=== PATIENT | male | born 1960 | race Caucasian/White ===

== ENCOUNTER 2018-04-22 18:58 | Emergency (ER) | payer OTHER, SELFPAY ==
[2018-04-22 18:59] VITALS: BP 156/86; PULSE 66; RESP 14; TEMP 36.9; O2SAT 93; BMI 22.6
--- NOTE | 2018-04-22 19:20 | ED.VISSUMM ---
- ER Visit Summary Date of Service: 04/22/18 Chief Complaint: Pain with swallowing History of Present Illness: The patient is a 57 M no significant past medical or surgical history. However the patient has not had a physician for more than 20 years. He states that he has pain the last several days with swallowing. He denies any food getting stuck. Said he can swallow both solids and liquids. Denies any choking or trouble breathing. Pain is only with swallowing when he is not swallowing he does not have any pain in his abdomen or chest. He denies fever. He denies back pain. He denies shortness of breath or chest pain. He denies any black or bloody stools. He has never had this before. He denies reflux symptoms. Physical Examination: Well-appearing middle-age male. Vital signs are stable afebrile. He does not look septic or toxic. He is in no distress. H EENT exam unremarkable other than multiple missing teeth. Neck nontender. Lungs clear to auscultation bilaterally. Heart regular rate and rhythm no murmur. Abdomen is soft and nontender. Normal bowel sounds no peritoneal signs. He is absolutely no abdominal tenderness. No organomegaly or masses. No pulsatile mass. Right upper quadrants unremarkable. He is moving all 4 extremities. The neurovascular intact. Back exam nontender. Neurological exam is awake and alert with no focal motor deficits. Test Results: I explained the patient and his daughters that he does not need any tests currently to the ER. He may need an upper endoscopy. Emergency Department Course and Treatment: Discharged to home to follow-up with Dr. Jann Gibson for possible upper endoscopy. Treatment Plan: Patient will be placed on Prilosec. For possible esophageal inflammation and reflux. Disposition: Discharge Impression: Acute pain with swallowing of uncertain etiology This note was generated with [employer] dictation software. It may contain incorrect words, spelling, and punctuation that were not noted in review of the chart prior to signing ED Disposition - Plan for ED Patient: Chief Complaint: Other, Pain/Inj Referrals: NOT,DEFINED [Primary Care Provider] -
--- NOTE | 2018-04-22 19:23 | ED.DEP ---
ED Disposition - Plan for ED Patient: Chief Complaint: Other, Pain/Inj Prescriptions: Omeprazole [Prilosec] 20 mg PO DAILY #30 cap Referrals: Shane Gibson MD [STAFF PHYSICIAN] - As soon as possible Additional Instructions: Make sure you to your food thoroughly. Cut up into small pieces. Call and follow-up with Dr. Jann Gibson. You may need upper endoscopy. Prilosec daily for possible reflux that may be causing esophageal inflammation. Return if feeling worse, fever or black or bloody stools.
== END 2018-04-22 19:31 | disposition home or self-care (01) ==
PROVIDERS: Emergency Provider Emergency Medicine
DX: R13.10 Dysphagia, unspecified (principal); Z72.0 Tobacco use
CPT/HCPCS: 99282

== ENCOUNTER 2018-04-28 09:51 | Day surgery (SDC) | payer OTHER, SELFPAY ==
[2018-04-28] VITALS (7 sets, daily range): BP systolic 104–160; BP diastolic 59–79; PULSE 71–90; RESP 16–18; TEMP 36.4–37.4; O2SAT 95–98; BMI 22.6
--- NOTE | 2018-04-28 11:00 | EGD_PTH ---
PATIENT: MY PEREZ LOC: EN U#:[id number] AGE/SX: 57/M ROOM: RE04/28/[address]: Dr. Shane Gibson MD : 1960 BED: DIS: 04/28/2018 SPEC #: [id number] RECD: 04/28/18 14:20 STATUS: ALEX ANDRES #: [id number] SHANTELL: 04/28/18 11:[address]: Shane Gibson DEPT: SURGICAL PATHOLOGY RECD BY: Rufina Corral ENTERED: 04/28/18 14:45 SP TYPE: EGD BIOPSY OTHR DR: Amanda Primary Care Phys Tissues: Esophagus, NOS Procedures: Surgery Specimen Level IV HEADER OPERATION: EGD ([facility]) PRE-OP DIAGNOSIS: Painful swallowing TISSUE SUBMITTED: Distal esophagus MICROSCOPIC DIAGNOSIS Distal esophagus, biopsy: Focal changes suggestive of reflux. AM:evy 04/29/18 MICROSCOPIC DESCRIPTION Slides are reviewed. GROSS DESCRIPTION Received in fixative is one container labeled with the patient's name and designated distal esophagus. The specimen consists of one irregular fragment of light mcmahon soft tissue that measures 0.2 x 0.2 x 0.1 cm. The specimen is totally submitted in one cassette. / SJ:evy 04/28/18 TC:5 CPT: 30646
--- NOTE | 2018-04-28 11:22 | PCM.OPRPT ---
Problem List (1) Dysphagia, unspecified Status: Acute Qualifiers: Dysphagia type: unspecified Qualified Code(s): R13.10 - Dysphagia, unspecified Report of Operation Date of Procedure: 04/28/18 Pre-Operative Diagnosis: r13.10 dysphagia Post-Operative Diagnosis: Same with esophagitis Surgery/Procedure Performed:: 94733 esophagogastroduodenoscopy with biopsy Type of Anesthesia:: MAC Description of Procedure: Patient was brought into the endoscopy suite. Placed in the left lateral decubitus position. The back of his throat was sprayed with Cetacaine spray. Bite-block was placed. He was given graded anesthesia. Scope was inserted in the oropharynx and directed down through the esophagus into the stomach and into the duodenum without difficulty. Operative findings: 1. Duodenum: Normal appearance no mass lesions no ulcerations normal pylorus valve. 2. Stomach: Normal appearance no mass lesions no ulcerations retroflexion did show small hiatal hernia 3. Esophagus: Significant esophagitis in the distal esophagus measuring approximately a centimeter to 2 cm in length and about a centimeter in width a cold biopsy of this was obtained. Rest the esophagus appeared normal no signs of mass lesions. I believe the discomfort that he is experiencing is from this esophagitis we are going to treat him with double dose proton pump inhibitor and probably re-scope him in 6-8 weeks. - Admit VTE Documentation VTE Present on Admission: No VTE Mechan Device Prophylaxis: SCD's VTE Pharm Prophylaxis ordered?: No Reason prophylaxis not ordered:: Treatment Not Indicated
--- NOTE | 2018-04-28 11:25 | OP.PCM_ITS ---
Problem List (1) Dysphagia, unspecified Status: Acute Qualifiers: Dysphagia type: unspecified Qualified Code(s): R13.10 - Dysphagia, unspecified Report of Operation Date of Procedure: 04/28/18 Pre-Operative Diagnosis: r13.10 dysphagia Post-Operative Diagnosis: Same with esophagitis Surgery/Procedure Performed:: 84941 esophagogastroduodenoscopy with biopsy Type of Anesthesia:: MAC Description of Procedure: Patient was brought into the endoscopy suite. Placed in the left lateral decubitus position. The back of his throat was sprayed with Cetacaine spray. Bite-block was placed. He was given graded anesthesia. Scope was inserted in the oropharynx and directed down through the esophagus into the stomach and into the duodenum without difficulty. Operative findings: 1. Duodenum: Normal appearance no mass lesions no ulcerations normal pylorus valve. 2. Stomach: Normal appearance no mass lesions no ulcerations retroflexion did show small hiatal hernia 3. Esophagus: Significant esophagitis in the distal esophagus measuring approximately a centimeter to 2 cm in length and about a centimeter in width a cold biopsy of this was obtained. Rest the esophagus appeared normal no signs of mass lesions. I believe the discomfort that he is experiencing is from this esophagitis we are going to treat him with double dose proton pump inhibitor and probably re- scope him in 6-8 weeks. - Admit VTE Documentation VTE Present on Admission: No VTE Mechan Device Prophylaxis: SCD's VTE Pharm Prophylaxis ordered?: No Reason prophylaxis not ordered:: Treatment Not Indicated
== END 2018-04-28 11:59 | disposition home or self-care (01) ==
LOC: EN 09:52 → AC 09:54
PROVIDERS: Visit Provider Surgery
PROC: 0DJ08ZZ Inspection of Upper Intestinal Tract, Via Natural or Artificial Opening Endoscopic (ICD-10-PCS; CPT 43235; principal; 2018-04-28 10:55)
DX: K21.0 Gastro-esophageal reflux disease with esophagitis (principal); K44.9 Diaphragmatic hernia without obstruction or gangrene; M06.9 Rheumatoid arthritis, unspecified; F10.99 Alcohol use, unspecified with unspecified alcohol-induced disorder; F17.200 Nicotine dependence, unspecified, uncomplicated
CPT/HCPCS: 43239; 88305; J7120; J1610

== ENCOUNTER → 2018-12-15 15:44 | Outpatient (CLI) | payer OTHER, SELFPAY ==
[2018-04-28 10:06] VITALS: BMI 22.6
[2018-12-15 15:59] LABS: Absolute Lymphocyte Count 2.18 X10^3/ul (0.83-4.51); Basophil# 0.03 X10^3/uL; Basophil% 0.4 % (0-1); Eosinophil# 0.03 X10^3/uL; Eosinophils% 0.4 % (0-5); Hematocrit 38.8 % (40-54); Hemoglobin 13.7 g/dl (13.0-16.5); Lymphocyte # 2.18 X10^3/ul (4.0); Lymphocyte % 25.9 % (19-41); Mean Corp Hgb Conc 35.3 g/gl (32-36); Mean Corpuscular Hgb 32.2 pg (27.0-32.0); Mean Corpuscular Volume 91.3 fL (80-94); Mean Platelet Vol. 9.7 fl (6.2-12.0); Monocyte# 1.15 X10^3/uL; Monocyte% 13.7 % (0-10); Neutrophil # 5.01 X10^3/uL (2.7-7.7); Neutrophil % 59.5 % (47-70); POSITIVE COUNT NO; POSITIVE DIFFERENTIAL NO; POSITIVE MORPHOLOGY NO; Platelet Count 337 K/mm3 (150-450); RBC Distribution Width CV 13.9 % (11.6-14.6); RBC Distribution Width SD 45.5 fl (35.1-43.9); Red Blood Count 4.25 M/mm3 (4.6-6.2); White Blood Count 8.4 K/mm3 (4.4-11.0)
[2018-12-15 16:22] LABS: ALB/GLOB Ratio 1.1 RATIO (0.9-2.4); AST(SGOT) 25 U/L (15-37); Alanine Aminotransfer ALT/SGPT 31 U/L (16-61); Albumin, Serum 3.8 g/dL (3.2-5.0); Alkaline Phosphatase 59 U/L (45-117); Anion Gap 6 (5-15); BUN 7 mg/dL (7-18); BUN/Creat Ratio 12.3 RATIO (10-20); Calcium,Total 8.5 mg/dL (8.5-10.1); Chloride 97 mmol/L (98-107); Creatinine, Serum 0.57 mg/dL (0.70-1.30); EST Glomerular Filtration Rate 158 mL/min (>60); Est Glom Filt Rate - Afr Amer 191 mL/min (>60); Globulin 3.4 g/dL (2.2-4.2); Glucose 102 mg/dL (74-106); Potassium 4.1 mmol/L (3.5-5.1); Protein, Total 7.2 g/dL (6.4-8.2); Sodium Level 132 mmol/L (136-145)
== END ==
PROVIDERS: Referring Provider Nurse Practitioner; Visit Provider Nurse Practitioner
DX: R22.1 Localized swelling, mass and lump, neck (principal)
CPT/HCPCS: 80053; 85025

== ENCOUNTER → 2018-12-17 09:13 | Outpatient (CLI) | payer OTHER, SELFPAY ==
--- NOTE | 2018-12-17 09:21 | CT_ITS ---
STUDY: CT CHEST WITH CONTRAST REASON FOR EXAM: Male, 58 years old. Left-sided neck mass 2 months. RADIATION DOSAGE (If Supplied By Facility): DLP = ( 1009 ) mGycm TECHNIQUE: Transaxial imaging was performed following intravenous administration of 100CC IV Isovue 300. Coronal and sagittal 2-D MPR Individualized dose optimization techniques were used for this CT. COMPARISON: CT soft tissue neck 12/17/2018 FINDINGS: Supraclavicular: No acute process within the [id number]. Body wall soft tissues: No acute process. Upper abdomen: No acute process. Osseous structures: No acute process. Mild scoliosis, moderate kyphosis, mild multilevel thoracic spondylosis. Mediastinum: No acute process. Cardiovascular: No acute process. Lungs: A few small scattered pulmonary nodules are present. The largest is in the right upper lobe anterior segment, series 6 image 73, 5 cm, solid features, smooth margins. Unremarkable airways. CT/Chest WITH Contrast IMPRESSION: No acute thoracic process is evident. Small pulmonary nodules. The largest measures approximately 5 mm. Follow-up low-dose CT chest is recommended in 1 year for pulmonary nodule surveillance purposes. Electronically Signed: Narendra Romero MD at 11:49 EDT Tel , Service support ,
--- NOTE | 2018-12-17 09:21 | CT_ITS ---
STUDY: CT SOFT TISSUE NECK WITH CONTRAST REASON FOR EXAM: Male, 58 years old. Left-sided neck mass 2 months RADIATION DOSAGE (If Supplied By Facility): CTDIvol = ( 16.55 ) mGy, DLP = ( 1009.11 ) mGycm TECHNIQUE: The patient was scanned in a multi-detector CT scanner. High resolution transaxial imaging was performed following intravenous administration of 100CC IV Isovue 300. Sagittal and coronal images were reconstructed. Individualized dose optimization techniques were used for this CT. COMPARISON: None. FINDINGS: There is a rim-enhancing centrally cystic mass distal to the angle the mandible, lateral to the hyoid cartilage, along the anterior margin of the sternocleidomastoid muscle. Wall thickness up to 4.9 mm. Process measures approximately 1.8 cm craniocaudal, 1.8 cm transverse, 2.9 cm anterior-posterior. Posteriorly and deep to the sternomastoid muscle, single mildly enlarged lymph node measuring 1.2 x 1.6 cm. A few additional shotty lymph nodes are present on the left. Normal thyroid. Normal submandibular glands and parotid glands. There is no right cervical lymphadenopathy. Pharyngeal and laryngeal soft tissues appear normal. Multilevel cervical spondylosis with disc disease most notable at C5-C6 with uncovertebral joint hypertrophy contributing to mild foraminal narrowing. Mucoperiosteal thickening and mucous retention cysts of the maxillary sinuses. Solitary opacified posterior right ethmoid sinus. Mastoid air cells and middle ear cavities clear. 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 Electronically Signed: Narendra Romero MD at 11:45 EDT Tel , Service support ,
== END ==
PROVIDERS: Family Provider Nurse Practitioner; PCP Nurse Practitioner; Referring Provider Nurse Practitioner; Visit Provider Nurse Practitioner
DX: R22.1 Localized swelling, mass and lump, neck (principal)
CPT/HCPCS: 70491; 71260; Q9967

== ENCOUNTER → 2018-12-22 10:32 | Outpatient (CLI) | payer OTHER, SELFPAY ==
--- NOTE | 2018-12-22 | FLU_PTH ---
PATIENT: MY PEREZ LOC: [facility] U#:[id number] AGE/SX: 65/M ROOM: RE12/22/[address]: Dr. Shane Gibson MD : 1960 BED: DIS: SPEC #: [id number] RECD: 12/22/18 12:54 STATUS: ALEX ANDRES #: [id number] SHANTELL: 12/22/18 00:[address]: Shane Gibson DEPT: CYTOLOGY RECD BY: Richardson Jackson ENTERED: 12/22/18 12:55 SP TYPE: Fluid OTHR DR: Kya Anderson, [employer] DESK CLERK-C Tissues: A - Neck, NOS B - Neck, NOS Procedures: Special Stain Group II Surgery Specimen Level IV Cytospin Fluid HEADER OPERATION: Ultrasound-guided fine needle aspiration left neck mass PRE-OP DIAGNOSIS: Left neck mass R22.1 TISSUE SUBMITTED: A - Left neck mass fluid in syringe for cytology, B - Fine needle aspiration left neck mass (12 slides) DIAGNOSIS CYTOLOGY A. 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 See comment. B. 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 SJ:rg 12/23/18 COMMENT A. Immunohistochemistry ([id number]) supports the above diagnosis. Case has been reviewed in consultation with Dr. Del Real who concurs with the above diagnosis. IDC:AM CYTOLOGY STUDY Slides are reviewed. CYTOLOGY GROSS A - Received is 2 ml of cloudy red fluid labeled with the patient's name and and designated per the requisition as left neck mass. Submitted for cytology preparation including cell block. B - Received are 12 smears labeled with the patient's name and designated per the requisition as left neck mass. Submitted for staining. / 12/22/18 TC:0 CPT: 87325, 31334, 16879
--- NOTE | 2018-12-22 | IMM_PTH ---
PATIENT: MY PEREZ LOC: [facility] U#:[id number] AGE/SX: 65/M ROOM: RE12/22/[address]: Dr. Shane Gibson MD : 1960 BED: DIS: SPEC #: [id number] RECD: 12/23/18 11:37 STATUS: ALEX REErik #: [id number] SHANTELL: 12/22/18 00:[address]: Shane Gibson DEPT: IMMUNOHISTOCHEMISTRY RECD BY: Florencia Valles ENTERED: 12/23/18 11:39 SP TYPE: IMMUNO OTHR DR: Kya Anderson, HIM CLERK-C Tissues: A - Neck, NOS Procedures: RCC (add) NAPSIN A (add) CK20 (add) CK5-6 (add) CK7 (add) CK8 (add) HEP PAR (add) P16 (add) TTF1 (add) Pankeratin (initial) P40 (add) PSAP (add) PHYSICIAN [facility] INSTIT[facility] [address] [address] SPECIMEN INFORMATION: Tissue Source: A - Left neck mass fine needle aspiration Clinical Info: Left neck mass Specimen Number: [id number] CPT code: 74609, 77055 x11 METHODOLOGY: Deparaffinized sections of prefer/formalin-fixed tissue or PAP/DQ stained slides are incubated with monoclonal/polyclonal antibodies/oligonucleotide probes. Localization is made via biotin free immunoperoxidase method. Appropriate controls are performed and reacted as expected. Results on target cell population are indicated in the following table: RESULTS: ANTIBODY / CLONE RESULT Block A AE1-3 (AE1/AE3/PCK26) positive CK7 (OV-TL12/30) negative CK8 (58tutwG72) positive, weak CK20 (KS20.8) negative TTF-1 (8G7G3/1) negative Napsin A (Rabbit Polyclonal) negative HepPar (OCh1E5) negative RCC (PN-15) negative PSAP (PASE/4LJ) negative CK5-6 (D5 & 1684) positive P16 (E6H4) negative P40 (BC28) positive, focal These tests were developed and their performance characteristics determined by [facility]. They may not have been cleared or approved by the U.S. Food and Drug Administration. The FDA has determined that such clearance or approval is not necessary. INTERPRETATION: A. 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 SJ:evy 12/24/18
[2018-12-22 09:21] VITALS: BMI 23.2
== END ==
PROVIDERS: Family Provider Nurse Practitioner; PCP Nurse Practitioner; Referring Provider Surgery; Visit Provider Surgery
DX: R22.1 Localized swelling, mass and lump, neck (principal)
CPT/HCPCS: 88108; 88305; 88313; 88341; 88342

== ENCOUNTER 2019-01-26 08:59 | Day surgery (SDC) | payer OTHER, SELFPAY ==
[2019-01-02 10:24] VITALS: BMI 22.1
[2019-01-08 11:40] VITALS: BMI 22.8
[2019-01-08 12:26] VITALS: BMI 22.6
[2019-01-26 09:31] VITALS: BP 158/84; PULSE 89; RESP 18; TEMP 36.9; O2SAT 100; BMI 22.4
--- NOTE | 2019-01-26 10:45 | HP.PCM_ITS ---
History and Physical Date of Admission: 01/26/19 [facility] [address] [place], [place] [address] OFFICE VISIT Date of Service: 01/02/19 MR#: [id number] Acct: [id number] Name: MY PEREZ Rep #: [id number] : 1960 Provider: Shane Gibson MD Age/Sex: 58/M Location: [facility] Status: Signed Intake Vital Signs 01/02/19 Body Mass Index (BMI) 22.1 01/02/19 Height 5 ft 6.5 in 01/02/19 Weight: 140 lb 01/02/19 Body Mass Index (BMI) 22.2 01/02/19 Blood Pressure 166/81 H 01/02/19 Blood Pressure Location Lt brachial 01/02/19 Blood Pressure Position Sitting 01/02/19 Respiratory Rate 18 01/02/19 Pulse Rate 75 Intake Visit Reasons: PORT PLACEMENT & PEG TUBE Chief Complaint: Neck mass Vp Of Marketing Required: No Is patient in pain?: No Allergies No Known Allergies Allergy (Verified 01/02/19 10:15) Medications NK 12/19/18 [History Confirmed 01/02/19] [facility] Medical History Acid reflux (Acute) Difficulty swallowing (Acute) Epigastric pain (Acute) Mass of left side of neck (Acute) malignant squamous cell carcinoma lt neck (Acute) Hypertension (Chronic) Surgical History history of biopsy neck (Acute) Family History Mother CVA (cerebral vascular accident) Social History Smoking Status: Current every day smoker alcohol intake: current alcohol intake frequency: a few times a week substance use type: does not use HPI HPI HPI: MY PEREZ, is a 58 M who presents to the office today for HPI HPI HPI: MY PEREZ, is a 58 M who presents to the office today for evaluation for PEG tube and a port. 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 He will be undergoing radiation to the head and neck as well as chemotherapy and I been consulted to place both a PEG tube and a port. ROS General General: No weight change, appetite, fatigue, colon cancer, breast cancer or weakness HEENT HEENT: No difficulty swallowing, eye injury, eye surgery, swollen glands or hoarseness Endo Endocrine: No thyroid disease, diabetes mellitus, thyroid cancer, Hair loss, heat intolerance or cold intolerance Skin Skin: No rash or changing moles Breast Breast: No left breast lump, right breast lump, nipple discharge, breast pain, abnormal mammogram, abnormal US or breast enlargement Musc Musculoskeletal: No back problems, arthritis, rheumatoid arthritis, gout or joint pain Cardio Cardiovascular: Yes high blood pressure; no murmur, pacemaker, heart disease, atrial fibrillation, heart attack, heart stent, palpitations, shortness of breat with exertion or chest pain Psych Psychiatric: No depression, anxiety or hearing voices Resp Respiratory: No shortness of breath, No sleep apnea, No cough, No COPD, No asthma, No emphysema, No wheezing Gastro Gastrointestinal: No abdominal pain, No nausea or vomiting, No diarrhea, No constipation, No blood in stool, Yes acid reflux, No hemorrhoids, No ulcers, No gallbladder problem, No black,tarry stools Mark Hematologic: No blood thinners, No blood disorders, No bleeding, No anemia, No blood clots Neuro Neurologic: No weakness Exam Const General: no acute distress, well developed, well hydrated Orientation: oriented to person, oriented to place, oriented to time [facility] Head: normocephalic, atraumatic Ears: external ears normal Mouth: moist mucous membranes Eyes Sclera: sclerae normal Pupils: normal by confrontation Neck Neck: no lymphadenopathy noted Neck mass: No Thyroid: thyroid normal, symmetrical Other: Large lymph node is identified in the left anterior neck right anterior neck appears to be free of lymphadenopathy. Chest Chest palpation & inspection: normal inspection of the chest Breast Palpation: No nipple discharge Resp Effort & Inspection: normal respiratory effort Auscultation: clear to auscultation bilaterally Percussion: percussion normal Cardio Rate: regular rate Rhythm: regular rhythm Heart Sounds: no murmurs GI Palpation: soft, no hepatosplenomegaly, no masses, nontender Rectal Exam: other Other: Rectal exam deferred. Extrem General: normal to inspection, no clubbing, cyanosis or edema Assessment & Plan Problems 1. 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 Carcinoma of unknown primary C80.1 3. Vascular catheter fitting or adjustment Z45.2 Plan I plan to perform a right internal drug port a cath placement. The planned surgical procedure was discussed extensively with the patient. The risks, benefits, anticipated outcomes and possible complication were mentioned. My staff has also explained the procedure in understandable terms and the patient was given the option to take printed material concerning the planned procedure. The patient had the opportunity to ask questions concerning the planned procedure. The patient freely consents to the planned procedure. I have discussed the above with the patient. I have offered the patient esophagogastroduodenoscopy with percutaneous endoscopic gastrostomy tube placed for evaluation. I have explained the risks/benefits of the procedure and described the procedure. I have discussed the risks with the patient, including but not limited to: infection, bleeding, perforation of the GI tract requiring emergency surgery, inability to complete the procedure, injury to any internal organs, complications of anesthesia, etc. - the patient understands and agrees to proceed. I have answered all the patient's questions to the patient's satisfaction and the patient has no further questions. The patient has been given instructions for the colon cleansing preparation. 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 There are no clinical changes since date of exam.
--- NOTE | 2019-01-26 10:45 | PCM.OPRPT ---
Problem List (1) Encounter for adjustment or management of vascular access device Status: Acute Report of Operation Date of Procedure: 01/26/19 Pre-Operative Diagnosis: Vascular fitting and adjustment Post-Operative Diagnosis: Same Surgery/Procedure Performed:: Placement of a right IJ PowerPort Type of Anesthesia:: Local MAC Anesthesiologist: Luis Armando Calderon Estimated Blood Loss (mL): <25 cc Fluids Replaced: 900 cc LR Description of Procedure: Patient was brought into the operating room. Placed in the supine position. Patient was placed in the headdown position I ultrasound the right neck identified the internal jugular vein I marked the neck and chest appropriately. The neck and chest were then sterilely prepped and draped in the usual fashion. Local was injected into the neck. Seldinger's technique was used to gain access to the internal jugular vein. Guidewire was placed over the needle the needle was removed. Fluoroscopy was used to confirm proper placement of the guidewire. Local was injected into the chest. Incision was made. Electrocautery was used to create a pocket for the port. Skin asia was made in the neck dilator was placed over the guidewire and removed dilator and sheath were placed over the guidewire removing the dilator and guidewire. Single lumen catheter was placed through the sheath. The sheath was removed. Fluoroscopy was used to confirm proper length. I tunneled from the pocket over the collarbone into the neck and brought the catheter down. I cut it appropriately placed the locking hub under the catheter port onto the catheter and secured the 2 with a locking hub. It flushed and irrigated well was flushed with 5 cc of hep flush. It was sutured into the pocket with 2 sutures of 2-0 Prolene. Skin incisions were brought together with deep dermal stitches of 3-0 Vicryl. Dermabond was applied. Sterile dressings were applied. The patient tolerated the procedure well. Portable chest x-ray was ordered. - Admit VTE Documentation VTE Present on Admission: No VTE Mechan Device Prophylaxis: SCD's VTE Pharm Prophylaxis ordered?: No Reason prophylaxis not ordered:: Treatment Not Indicated
[2019-01-26] MEDS: Bupivacaine Mpf 0.5% 30 ML VIAL (11:38)
--- NOTE | 2019-01-26 11:58 | PCM.DC.POR ---
Discharge Diet: No Restrictions - Pain medication may cause nausea. You should typically eat light foods as you take your pain medication. Discharge Activity: May Shower - with the bandage in place 1-2 days after surgery. DO NOT SHOWER WHEN YOUR PORT IS ACCESSED. Additional Activity Instructions:: May not drive, work with heavy equipment, or sign legal documents for [address] if you are no longer taking narcotic pain medications. You may drive when you are no longer taking pain medications. Additional Dressing/Incision Instructions:: Leave the bandage on for 2-3 days. When you remove the bandage, leave the steri-strips intact until they fall off. Allergies/Adverse Reactions: Allergies No Known Allergies Allergy (Verified 01/08/19 12:24) Medications to take at Discharge Lidocaine/Prilocaine [Lidocaine-Prilocaine Cream] 1 applicatio TP DAILY PRN PRN 30 Days #1 tube 01/05/19 Ondansetron [Ondansetron Odt] 8 mg PO Q8H PRN PRN 10 Days #30 tab.rapdis 01/05/19 Prochlorperazine Maleate 10 mg PO Q6H PRN PRN 10 Days #30 tablet 01/05/19 Thiamine Hydrochloride [Vitamin B1] 1 tab PO DAILY 01/05/19 Oxycodone HCl/Acetaminophen [Percocet 5/325] 1 - 2 tab PO Q4H PRN PRN 6 Days #30 tab 01/26/19 The following prescriptions were given: Oxycodone HCl/Acetaminophen [Percocet 5/325] 1 - 2 tab PO Q4H PRN PRN 6 Days #30 tab PRN Reason: Pain Primary Care Physician: Kya Anderson, [employer] [Primary Care Provider] - Test Results: Test results from this visit will be discussed in further detail at your follow-up appointment, if applicable. Please Follow Up With: Shane Gibson MD - [phone] When: Please plan to follow up in 7 days in the office.
[2019-01-26 12:20] VITALS: BP 106/75; BP 158/84; PULSE 66; RESP 16; TEMP 36.4; O2SAT 95
--- NOTE | 2019-01-26 12:24 | RAD_ITS ---
STUDY: X-RAY CHEST REASON FOR EXAM: Male, 58 years old. Postop. Right IJ power port placement TECHNIQUE: Single AP portable view of the chest. COMPARISON: None. FINDINGS: There is hyperinflation of the lungs consistent with chronic obstructive lung disease (COPD). Lungs are clear. Patient right chest wall Mediport with tip in the mid SVC. No pneumothorax. There is no demonstrated pleural abnormality. Normal size heart. Normal mediastinum and michelle. Normal visualized pulmonary arteries. Normal visualized aortic arch and descending thoracic aorta. Normal visualized thoracic spine. Normal visualized ribs, clavicles, and shoulders. There is no demonstrated abnormality of the visualized soft tissue structures of the upper abdomen. RAD/CXR for Line Placement IMPRESSION: Clear lungs. Right chest wall Mediport as above Electronically Signed: Coy White DO at 13:08 EDT Tel , Service support ,
[2019-01-26 12:25] VITALS: BP 158/84; BP 98/70; PULSE 73; RESP 18; O2SAT 95
[2019-01-26 12:30] VITALS: BP 106/72; BP 158/84; PULSE 64; RESP 18; O2SAT 95
[2019-01-26 12:35] VITALS: BP 101/73; BP 158/84; PULSE 65; RESP 18; TEMP 36.2; O2SAT 95
--- NOTE | 2019-01-26 12:55 | OP.ENDO_ITS ---
01/26/2019 Kya Anderson, AJAY [address] [place] [address] Re : Upper GI endoscopy procedure for Dread Norton Dear Ms. Anderson This procedure was performed on Saturday, January 26, 2019. My impressions and recommendations are as follows: Impressions : - Normal esophagus. - Normal stomach. - Normal duodenal bulb. - An externally removable PEG placement was successfully completed. - No specimens collected. Recommendations : - Please follow the post-PEG recommendations. - Continue present medications. My findings are described in the full procedure note, which is enclosed. If I can be of further assistance, please feel free to contact me at Doctor phone number(s): , Fax: [phone], Work: . Sincerely, MD Shane Kuhn MD 01/26/2019 12:55:22 PM This report has been signed electronically.
[2019-01-26 14:28] VITALS: BP 158/84
== END 2019-01-26 14:32 | disposition home or self-care (01) ==
LOC: SDC 09:01 → AC 09:02
PROVIDERS: Family Provider Nurse Practitioner; PCP Nurse Practitioner; Referring Provider Surgery
PROC: (CPT 36561; principal; 2019-01-26 10:45)
PROC: 0DJ08ZZ Inspection of Upper Intestinal Tract, Via Natural or Artificial Opening Endoscopic (ICD-10-PCS; CPT 43235; principal; 2019-01-26 11:40)
DX: Z45.2 Encounter for adjustment and management of vascular access device (principal); Z43.1 Encounter for attention to gastrostomy; K21.9 Gastro-esophageal reflux disease without esophagitis; I10 Essential (primary) hypertension; C76.0 Malignant neoplasm of head, face and neck; C77.9 Secondary and unspecified malignant neoplasm of lymph node, unspecified; F17.210 Nicotine dependence, cigarettes, uncomplicated; R63.3 Feeding difficulties
CPT/HCPCS: 36561; 43246; 71045; 77001; J7120; C1788; J2405

== ENCOUNTER 2019-02-06 10:41 | Outpatient (RCR) | payer OTHER, SELFPAY ==
[2018-12-31 09:06] VITALS: BMI 22.1
[2019-01-08 12:26] VITALS: BMI 22.6
== END 2019-02-20 23:59 ==
LOC: NS 10:41
PROVIDERS: Family Provider Nurse Practitioner; PCP Nurse Practitioner; Visit Provider Internal Medicine Hematology & Oncology
DX: Z71.3 Dietary counseling and surveillance (principal); C80.1 Malignant (primary) neoplasm, unspecified; C77.9 Secondary and unspecified malignant neoplasm of lymph node, unspecified
CPT/HCPCS: 97802

== ENCOUNTER 2019-03-04 13:21 | Outpatient (RCR) | payer OTHER, SELFPAY ==
[2019-01-08 12:26] VITALS: BMI 22.6
[2019-02-21 00:22] VITALS: BMI 22.4
[2019-03-03 10:12] VITALS: BMI 21.4
== END 2019-03-22 23:59 ==
LOC: NS 13:21
PROVIDERS: Family Provider Nurse Practitioner; PCP Nurse Practitioner; Visit Provider Internal Medicine Hematology & Oncology
DX: Z71.3 Dietary counseling and surveillance (principal); C80.1 Malignant (primary) neoplasm, unspecified; C77.9 Secondary and unspecified malignant neoplasm of lymph node, unspecified
CPT/HCPCS: 97803

== ENCOUNTER → 2019-03-04 | Outpatient (CLI) | payer OTHER, SELFPAY ==
[2019-01-08 12:26] VITALS: BMI 22.6
[2019-02-17 12:08] VITALS: BMI 22.0
[2019-03-03 10:12] VITALS: BMI 21.4
== END | disposition home or self-care (01) ==
PROVIDERS: Family Provider Nurse Practitioner; PCP Nurse Practitioner; Referring Provider Student in an Organized Health Care Education/Training Program; Visit Provider Student in an Organized Health Care Education/Training Program
DX: R13.10 Dysphagia, unspecified (principal)

== ENCOUNTER 2019-03-25 11:13 | Outpatient (RCR) | payer OTHER, SELFPAY ==
[2019-01-08 12:26] VITALS: BMI 22.6
[2019-03-23 00:16] VITALS: BMI 21.2
[2019-03-25 10:17] VITALS: BMI 20.2
== END 2019-04-22 23:59 ==
LOC: NS 11:13
PROVIDERS: Family Provider Nurse Practitioner; PCP Nurse Practitioner; Visit Provider Internal Medicine Hematology & Oncology
DX: Z71.3 Dietary counseling and surveillance (principal); C80.1 Malignant (primary) neoplasm, unspecified; C77.9 Secondary and unspecified malignant neoplasm of lymph node, unspecified
CPT/HCPCS: 97803

== ENCOUNTER → 2019-05-13 | Outpatient (CLI) | payer OTHER, SELFPAY ==
[2019-01-08 12:26] VITALS: BMI 22.6
[2019-04-28 11:58] VITALS: BMI 20.2
[2019-04-30 13:06] VITALS: BMI 20.2
--- NOTE | 2019-05-13 13:15 | CT_ITS ---
STUDY: CT CHEST WITH CONTRAST REASON FOR EXAM: Male, 58 years old. Lung nodules follow-up RADIATION DOSAGE (If Supplied By Facility): CTDIvol = ( 9.04 ) mGy, DLP = ( 337.76 ) mGycm TECHNIQUE: Transaxial imaging was performed following intravenous administration of 100 IV Isovue 300. Individualized dose optimization techniques were used for this CT. COMPARISON: December 17, 2018 report only FINDINGS: There is very mild interstitial prominence particularly in the lower lobes. There is no focal infiltration. There is a tiny nodule in the right middle lobe measuring approximately 4 mm in size. There is no demonstrated pleural abnormality. Normal heart and pericardium. Normal mediastinum. Normal hilar regions. Normal enhanced pulmonary arteries. Normal aorta arch and descending thoracic aorta. Dorsal spine demonstrates advanced degenerative change Small hiatal hernia is present. There is no demonstrated abnormality of the visualized upper abdomen. CT/Chest WITH Contrast IMPRESSION: Mild interstitial thickening.. Solitary tiny nodule in the right lower lobe measuring approximately 4 mm. No other discrete nodules are identified This appears to represent an improvement based on prior exam report however the study itself is not available for comparison purposes.. Direct comparison is recommended when prior studies are available Electronically Signed: Ric Pelaez MD at 17:23 EDT , Service support ,
== END | disposition home or self-care (01) ==
LOC: CT 13:13
PROVIDERS: Family Provider Nurse Practitioner; PCP Nurse Practitioner; Referring Provider Internal Medicine Hematology & Oncology; Visit Provider Internal Medicine Hematology & Oncology
DX: C76.0 Malignant neoplasm of head, face and neck (principal); R91.1 Solitary pulmonary nodule
CPT/HCPCS: 71260; Q9967

== ENCOUNTER → 2019-06-26 13:26 | Outpatient (CLI) | payer OTHER, SELFPAY ==
[2019-01-08 12:26] VITALS: BMI 22.6
[2019-04-30 13:06] VITALS: BMI 20.2
[2019-06-25 16:16] VITALS: BMI 20.2; BMI 22.6
--- NOTE | 2019-06-26 13:15 | SP.MBSS_ITS ---
PRIMARY / SECONDARY DIAGNOSIS: dysphagia (R13.12) REFERRING PHYSICIAN: Dr. 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 PREVIOUS MODIFIED BARIUM SWALLOW STUDY: None. ASSESSMENT PARAMETERS: The Patient participated in a Modified Barium Swallow (MBS) study on 06/26/2019. Dr. Reeves was the radiologist present for this evaluation. This study was recorded in the lateral view and images were sent to PACs for storage. Scoring was completed through each trial using the 8-point Penetration-Aspiration Scale (PAS) and Videofluoroscopic Scale Score (VSS), and summarized via the Modified Barium Swallow Impairment Profile (MBSImP) and the Bolus Residue Scale (BRS), with severity scoring through the Dysphagia Severity Rating Scale (DSRS), the Swallowing Performance Scale (PSP), and the Dynamic Imaging Grade of Swallowing Toxicity (DIGEST), and recommended diet textures through the International Dysphagia Diet Standardisation Initiative (IDDSI). 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 SUPPLEMENTARY DYSPHAGIA ASSESSMENT RESULTS: Total Dysphagia Risk Score (TDRS): 21 - High risk (TDRS > 18) OBJECTIVE ASSESSMENT OF SWALLOW FUNCTION (QUANTITATIVE ? PER TRIAL): PENETRATION / ASPIRATION SCALE (SENIOR): 1 = does not enter airway 2 = enters airway/above vocal folds/ejected 3 = enters airway/above vocal folds/not ejected 4 = enters airway/contacts vocal folds/ejected 5 = enters airway/contacts vocal folds/not ejected 6 = enters airway/below vocal folds/ejected 7 = enters airway/below vocal folds/not ejected despite effort 8 = enters airway/below vocal folds/no effort VIDEOFLOROSCOPIC SCALE SCORE (SENIOR): Grade I = aspiration of material that has penetrated into the laryngeal vestibule, intact cough reflex Grade II = aspiration < 10 % of the bolus, intact cough reflex Grade III = aspiration of < 10 % of the bolus, reduced cough reflex or aspiration of > 10 % of the bolus, intact cough reflex Grade IV = aspiration of > 10 % of the bolus, reduced cough reflex PENETRATION / ASPIRATION SCALE (SCORE) WITH VIDEOFLOROSCOPIC SCALE SCORE: Thin liquid - 5 mL tsp.: 1 Thin liquids via cup (single sip): 1 Thin liquids via cup (single sip): 1 Thin liquids via cup (single sip): 1 Thin liquids via cup (sequential swallows): 3 Thin liquids via straw (sequential swallows): 5 Pudding via spoon: 1, 8* ? Grade III Regular textured cookie: 1 Thin liquids via straw (chaser): 7 ? Grade III Thin liquids via straw (chin tuck): 1 Thin liquids via straw (chin tuck): 1 Thin liquids via straw (chin tuck): 1 [place] thickened liquids via straw (single sip): 1 [place] thickened liquids via straw (single sip): 1 [place] thickened liquids via straw (single sip): 1 * denotes progression and minimal aspiration of previously penetrated thin liquids. OBJECTIVE ASSESSMENT OF SWALLOW FUNCTION (QUANTITATIVE ? AGGREGATE): MODIFIED BARIUM SWALLOW IMPAIRMENT PROFILE (MBSImP) LABIAL SEAL: 0 (of 4) no labial escape TONGUE CONTROL: 1 (of 3) lateral buccal cavity / floor of mouth BOLUS PREPARATION / MASTICATION: 0 (of 3) timely and efficient BOLUS TRANSPORT / LINGUAL MOTION: 0 (of 4) brisk tongue motion ORAL RESIDUE: 1 (of 4) trace residue lining oral structures INITIATION OF PHARYNGEAL SWALLOW: 1 (of 4) valleculae SOFT PALATE ELEVATION: 0 (of 4) no bolus between soft palate & pharyngeal wall LARYNGEAL ELEVATION: 1 (of 3) partial superior movement / approximation ANTERIOR HYOID EXCURSION: 1 (of 2) partial movement EPIGLOTTIC MOVEMENT: 1 (of 2) partial inversion LARYNGEAL VESTIBULE CLOSURE: 1 (of 2) incomplete closure PHARYNGEAL STRIPPING WAVE: 1 (of 2) present / diminished PE SEGMENT OPENIN (of 3) partial distension / duration / obstruction TONGUE BASE RETRACTION: 3 (of 4) wide column of contrast PHARYNGEAL RESIDUE: 2 (of 4) collection of residue ESOPHAGEAL BOLUS CLEARANCE: could not view BOLUS RESIDUE SCALE (BRS): 4 (of 6) residue in valleculae and piriform sinus DYSPHAGIA SEVERITY RATING SCALE (DSRS): 4 (moderate) SWALLOWING PERFORMANCE SCALE (SPS): 5 (moderate) DYNAMIC IMAGING GRADE OF SWALLOWING TOXICITY (DIGEST) DIGEST SAFETY GRADE: Grade 2 (PAS 7-8 = intermittent, not gross) DIGEST EFFICIENCY GRADE: Grade 2 (50-90%; majority residue; solids) SUMMARY DIGEST GRADE: Grade 2 (moderate) OBJECTIVE ASSESSMENT OF SWALLOW FUNCTION (QUALITATIVE): ORAL PREPARATORY PHASE: competent bolus manipulation despite upper edentulous status; sufficient anterior oral containment during presentation / manipulation; preserved management of breathing / bolus formation without disrupted E ? S ? E pattern ORAL TRANSITIONAL PHASE: sufficient bolus transportation; no lingual discoordination (no tremor / undulations); somewhat fragmented swallowing (piecemeal deglutition) with solid textures; sufficient oral clearance; no presence of premature posterior bolus loss; sufficient oral containment across textures. PHARYNGEAL PHASE: no signs of pharyngeal dyssynchrony; reduced hyolaryngeal excursion and duration with inconsistent laryngeal vestibule pressure generated to expel penetrated material; pharyngeal dysmotility most prominently with more viscous textures attributed to incomplete epiglottic deflection in combination with reduced tongue based retraction / posterior pharyngeal stripping wave action, with consolidation primarily within the vallecula; given the recency of the Patients pharyngeal irradiation his pharyngeal motility is rather functional at this phase of the intervention cycle; no signs of velopharyngeal impairments; ESOPHAGEAL PHASE: no obvious esophageal phase abnormalities observed. CONTRIBUTING / COMPLICATING FACTORS AND NOTABLE FINDINGS: sufficient / strong cued volitional cough intensity to expel penetrated material / laryngotracheal aspiration; small non-obstructive cricopharyngeal bar located at the C-7 level. RESPONSE TO STRATEGIES: all deficits managed successfully with reduction in bolus rate / volume adjustments, execution of the chin tuck posture with use of a straw, execution of a liquid wash following solid ingestion, and diet texture / viscosity adjustments. DYSPHAGIA ASSOCIATED MEDICAL CONSIDERATIONS / INTERVENTION CONSIDERATIONS: The Patient was noted to SILENTLY aspirate with very scant quantities of previously penetrated thin liquids (less than 5% of any bolus), with clinical assessment at bedside relying on identification of classic overt signs and symptoms of aspiration considered unreliable, though it is important to note that he did demonstrate an overt reaction to larger bolus volumes of thin liquids (>5% of the bolus). The Patient does express a desire to advance with thin liquids given the functional improvements in tolerance with execution of the chin tuck posture in conjunction with reductions in bolus volumes, which is reasonable given his overall improved medical condition, maintained ambulatory abilities, and strong dedication to all recommendations that have been made throughout the intervention cycle that would suggest a higher likelihood for compliance and sufficient execution.I recommend a repeat modified barium swallow study within 2 - 4 months (if clinically appropriate) to further assess the presence and extent of post irradiation dysphagia and presence / extent of silent and overt aspiration, as continued changes in the swallow pattern post irradiation remains high. I would consider the Patient to be at a higher risk of aspiration related medical complications / aspiration pneumonia / aspiration related pulmonary syndrome secondary to the diagnosis of oropharyngeal cancer status post chemoradiation, presence of dysphagia with pharyngeal phase impairment and silent aspiration identified under fluoroscopy, upper edentulous status, and intermittent tube feeding use. Would consider the Patent to be at a higher risk of oropharyngeal colonization with respiratory pathogens secondary to the Patient?s recent poor nutritional status, xerostomia, recent use of antibiotics possibly provoking a variety of respiratory alida, placement on alternative means of nutrition, and prevalence of gastroesophageal reflux disease. Aspiration of saliva contaminated with pathogens can lead to pulmonary infections, with creation, implementation, and adherence to an aggressive oral and dental care program is essential. Will continue to recommend an aggressive oral care program that includes pre-rinse use prior to water intake; routine oral care / denture care in the a.m., prior to oral intake, after oral intake, and prior to bed via toothbrush / swab / rinse; use of oral moisturizers as needed to reduce impact of xerostomia; and frequent dental checkups. INTERVENTION RECOMMENDATIONS AND CONSIDERATIONS: The Patient requires continued skilled speech-language intervention targeting diet texture management and training / implementation of recommended compensatory strategies; continued training and implementation of a home based prophylactic swallowing exercise program to promote the highest level of preserved post-irradiation swallow functioning; continued training and implementation of a home oral care protocol to reduce the effects of xerostomia and improve / maintain the integrity of the oral mucosa reducing the risk of aspiration related pulmonary complications; and continued Patient education regarding vishnu and post-irradiation dysphagia and associated symptomology; POST ASSESSMENT EDUCATION: Results and recommendations were discussed with the Patient immediately following MBS completion, with the Patient verbalizing understanding and agreement with all recommendations and education provided. We discussed factors impacting effects of aspiration, to include: the quantity of aspiration, the depth of aspiration (trachea or distal airways), and the physical properties of the aspirate. We further discussed consequences of oropharyngeal dysphagia, to include pulmonary complications from tracheobronchial aspiration; potential for airway obstruction / asphyxiation; inadequate oral intake because of dysphagia; reduced liquid intake resulting in dehydration; reduced caloric intake resulting in unintentional and potentially medically complicating loss of weight; impairment in mental and physical condition that can include deterioration in the quality of life, and increased risk for mortality / . I provided brief overview of signs and symptoms of aspiration, with recommendations for the Patient to further discuss symptoms with the Patients primary care provider. DIET TEXTURE RECOMMENDATIONS: Will recommend a mechanical soft textured (IDDSI: 5), thin liquid diet (IDDSI: 0) diet RECOMMENDED COMPENSATORY STRATEGIES: Consider cutting tougher textures into bite sized pieces, execution of the chin tuck posture via straw with liquids, reduced bolus volume / rate of ingestion, liquid chaser at reasonable intervals, seated upright at 90 degrees during PO intake, remain upright for 30-60 minutes post meal (GERD precaution), medications one at a time with purees. IMAGE COUNT: [id number] Diomedes Bentley M.A., MARCIA-COATING TECHNICIAN, CBIS MBSImP Certified, LSVT Certified [facility] Speech-Language Pathology Department [email or web address]
--- NOTE | 2019-06-26 13:31 | RAD_ITS ---
STUDY: SWALLOWING STUDY REASON FOR EXAM: Male, 59 years old. Dysphagia. Abdomen neck cancer. TECHNIQUE: The examination was performed with Speech Pathology in attendance. Under fluoroscopic observation, the patient ingested thin barium, thick barium, barium pudding, and barium coated cracker. FLUOROSCOPY TIME: 2:34 minutes/seconds. 2172 fluoroscopic images were obtained. RADIOLOGIST INVOLVEMENT: Radiologist was present and providing direct supervision. COMPARISON: None. FINDINGS: The following was observed during swallowing of the various mixtures of barium: Thin Barium: Aspiration with ingestion of thin liquids. This is improved with the chin tuck maneuver. Thick Barium: There was no evidence of aspiration or laryngeal penetration. Barium Pudding: There was no evidence of aspiration or laryngeal penetration. Barium Coated Cracker: There was no evidence of aspiration or laryngeal penetration. RAD/Swallowing Function w/Video IMPRESSION: Aspiration with ingestion of thin liquids. This improved with the chin tuck maneuver. The swallow study findings were discussed with the patient by the speech pathologist at the conclusion of the examination. Please see speech pathology report for more information and recommendations. Electronically Signed: Bib Reeves, at 14:50 EDT , Service support ,
== END ==
PROVIDERS: Family Provider Nurse Practitioner; PCP Nurse Practitioner; Referring Provider Student in an Organized Health Care Education/Training Program; Visit Provider Student in an Organized Health Care Education/Training Program
DX: R13.10 Dysphagia, unspecified (principal)
CPT/HCPCS: 74230; 92611

== ENCOUNTER 2019-07-17 10:00 | Outpatient (RCR) | payer OTHER, SELFPAY ==
[2019-01-08 12:26] VITALS: BMI 22.6
--- NOTE | 2019-02-13 10:15 | SOAP_ITS ---
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 The Patient reports initial odynophagia in April of 2018 followed by left sided cervical lump development in November of 2018 which gradually developed in size. The Patient denies any coughing or throat clearing during PO intake, denies sensation of nasopharyngeal reflux during ingestion, and denies odynophagia (reports odynophagia prior to left tonsillectomy, though this has resolved). He denies any significant weight loss (stable; 140 ? 136 lbs), with a percutaneous endoscopic gastrostomy (PEG) tube prophylactically placed on 01/30/2019, along with multiple dental extractions and left radical tonsillectomy. He denies any appetite reduction or early satiety, denies any nausea or emesis. He denies any symptoms of trismus. He reports no xerostomia or diurnal sialorrhea, and denies any dysgeusia / hypogeusia / ageusia or hyposmia. He denies any persistent globus sensation or issues with reflux. He denies suboptimal intake behaviors (tachyphagia, bolus bolting, or aerophagia). He denies any current or previous issues with aspiration related pulmonary complications, to include pneumonia, bronchitis, or unexplained asthma symptoms. The Patient appears relatively cognitively intact with affect appearing appropriate; no apparent or reported cognitive communication issues appearing throughout gathering of case history; denies any vocal changes. The Patient is fully ambulatory, no difficulties with posture maintenance, though does appear somewhat slightly undernourished; he is independent for all ADLs and IADLs, completing all activities of daily living without difficulty. He is not actively working, with no immediate plans to return to the vocational setting reported. He reports he is actively attempting to stop all smoking and drinking, and has abstained from alcohol for the past two days. 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 PREVIOUS MODIFIED BARIUM SWALLOW STUDY: None. ADDITIONAL OBJECTIVE ASSESSMENT RESULTS: 04/28/2018 EGD due to odynophagia demonstrated significant esophagitis in the distal esophagus measuring 1-2 cm in length 12/18/[address] revealed no acute thoracic process; small pulmonary nodules, largest measures approximately 5 mm. 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 01/07/2019 PET scan revealed increased glucose concentration observed in the left lateral neck fulfills quantitative criteria for viable neoplasm; asymmetric enhanced FDG distribution noted in the left pharyngeal mucosal space 01/26/2019 CXR revealed clear lungs; right chest wall Mediport. ORAL MOTOR / MODIFIED CRANIAL NERVE ASSESSMENT: CNV, VII, IX, X, and XII appear grossly intact. Hyperactive gag reflex elicited. Natural lower dentition with recent bilateral lower molar (#[id number] and #[id number]) and entire upper dental extractions; no obvious signs of alveolar osteitis (dry socket); mild gingival recession along the remaining dentition; denies odontalgia. Status post tonsillectomy and uveal excision with remaining scar tissue visualized in the posterior oropharynx. Whitish coating on the lingual blade that may be suggestive of oral candidiasis vs. effects of xerostomia. Questionable lesion / growth located in the left sublingual tissue. Very small white spots along the bilateral buccal mucosa (no more than 4-5 total). Appropriate volitional cough intensity. No signs or symptoms of trismus. SUPPLEMENTARY DYSPHAGIA ASSESSMENT RESULTS: Malnutrition Screening Tool (MST): 0 (not at risk) Reflux Symptom Index (RSI): 0 (>13 may be indicative of significant reflux) Oral Mucositis Grading Scale: Grade I (mild ? asymptomatic or mild symptoms) Scale of Subjective Total Taste Acuity (STTA): Grade 0 (same taste acuity as before) Radiation Therapy Oncology Group Radiation Morbidity Scoring Criteria for Xerostomia: Acute Reactions: Grade 0 (no change management lead baseline) [facility] Xerostomia Questionnaire: 2/80 Sialorrhea Scoring Scale (SSS): /9 (dry, never drools) TN Feng Dysphagia Inventory (MDADI): Global: 4/5 Physical: 34/40 Emotional: 25/30 Functional: 23/25 Composite score: 82 Mean Point Score: 4.31 Final Score: 86.31/100 Performance Status Scale for Head & Neck Cancer Patients (PSS-HN): 300/300 Normalcy of Diet: 100 ? full diet (no restrictions) Public Eatin ? no restriction of place, food, or company Understandability of Speech: 100 ? always understandable Total Dysphagia Risk Score (TDRS): 21 - High risk (TDRS > 18) CLINICAL ASSESSMENT OF SWALLOW FUNCTION (QUANTITATIVE): Repetitive Saliva Swallowing Test (RSST): Pass; > 2 dry swallows within 30 seconds. Modified Water Swallowing Test (MWST): Normal ? 5 (of 5) 1oz (30mL) Water Swallowing Test (1oz WST): Normal ? 1 (of 5) 3oz (90mL) Water Swallow Test (3oz WST): Normal Food Test: Normal ? 5 (of 5) Keenan Assessment of Swallowing Ability ? Cancer (MASA-C): 187 (mild) MASA-C Dysphagia Risk Rating: Possible; lowered probability of disorder, Swallowing Performance Scale (PSP): 3 (mild) CLINICAL ASSESSMENT OF SWALLOW FUNCTION (QUALITATIVE): ORAL PREPARATORY PHASE: mild (albeit effective) mastication inefficiency with slightly prolonged mastication secondary to recent dental extractions pending dental prosthetic completion; sufficient anterior oral containment; preserved management of breathing / bolus formation without disrupted E ? S ? E pattern. ORAL TRANSITIONAL PHASE: no signs of transitional incompetence; no signs of bolus consolidation impairments; no signs or symptoms of premature posterior bolus loss. PHARYNGEAL PHASE: appropriate hyolaryngeal excursion upon digital palpation; intermittent audible swallow possibly suggestive of pharyngeal swallow delay / dyssynchrony; no subjective signs of pharyngeal dysmotility; no subjective signs of velopharyngeal impairments; no signs or symptoms of penetration / aspiration throughout trials. ESOPHAGEAL PHASE: esophageal phase appears unremarkable FUNCTIONAL STATUS ASSESSMENT RESULTS: Functional Assessment of Cancer Therapy ? Head & Neck (FACT H&N): 73 Physical Well-Bein Social / Family Well- Bein Emotional Well-Bein Functional Well-Bein Additional Concerns: 18 Karnofsky Performance Scale Index: 90 (able to carry on normal activity; minor impact) Ndiaye Index of [place] in Activities of Daily Livin/6 (independent) Bathin Dressin Toiletin Transferrin Continence: 1 Feedin Amadeo Jerrell Rolando Instrumental Activities of Daily Living Scale (IADL): 8/8 (high functioning) A. Ability to Use Telephone: 1 B. Shoppin C. Food Preparation: 1 D. Housekeepin E. Laundry: 1 F. Mode of Transportation: 1 G. Responsibility for Own Medications: 1 H. 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 RECOMMENDATIONS: Cannot definitively rule out silent aspiration at bedside; will recommend further assessment of the oropharyngeal swallow function via objective means (modified barium swallow study) due to the anatomical / structural abnormalities and likely physiological impacts on the swallow structures. The patient is at HIGH risk for continual changes and possible decline in both swallow functioning / dysphagia severity and cognitive communication functioning throughout the chemoradiation intervention cycle; would benefit from continued monitoring across all domains. Provided Patient education regarding the importance of oral care throughout the irradiation process and post-irradiation, with recommendations for an aggressive oral care program that includes pre-rinse use prior to water intake; routine oral care in the a.m., prior to oral intake, after oral intake, and prior to bed via toothbrush / swab / rinse; with frequent dental checkups post-irradiation. The Patient requires intensive skilled speech-language intervention 1-2x per week throughout the irradiation process and post irradiation targeting diet texture management and training / implementation of recommended compensatory strategies; training and implementation of a home based prophylactic swallowing exercise program to promote the highest level of preserved post- irradiation swallow functioning; training and implementation of a home oral care protocol to reduce the effects of xerostomia and improve / maintain the integrity of the oral mucosa reducing the risk of aspiration related pulmonary complications; Patient / caregiver education regarding vishnu and post-irradiation dysphagia and associated symptomology; and considerations for continual assessment of the cognitive communication profile as medically appropriate throughout the chemoradiation cycle to ensure achievement of the highest level of safe, independent functioning; with goal adjustment pending MBS completion. DIET TEXTURE RECOMMENDATIONS: Will recommend a regular textured (IDDSI: 7), thin liquid diet (IDDSI: 0) diet RECOMMENDED COMPENSATORY STRATEGIES: Seated upright at 90 degrees during PO intake, remain upright for 30-60 minutes post meal (GERD / PEG precaution), alternative supplementation via PEG as needed. FUNCTIONAL OUTCOMES: OUTCOME 1: the Patient will tolerate the least restrictive means of nutrition to facilitate adequate hydration / nutrition with optimum safety and efficiency of swallowing function during P.O. intake without overt signs and symptoms of aspiration. OUTCOME 2: the Patient will demonstrate and utilize recommended compensatory swallowing techniques to facilitate improved airway protection and decreased risk for aspiration during PO intake. OUTCOME 3: the Patient will demonstrate and utilize recommended oropharyngeal range of motion exercise within the Patients clinical and home based program to improve and maintain overall oropharyngeal functioning and reducing the effects of post-irradiation dysphagia, with minimal cueing and prompting provide by the clinician, across 2 out of 3 sessions. OUTCOME 4: the Patient will participate in a home based oral care program established during intervention sessions to facilitate improved and maintained integrity of the oral mucosa throughout the irradiation process with complete independence. OUTCOME 5: the Patient will participate in a Modified Barium Swallow (MBS) study to objectively assess the Patient?s oropharyngeal swallowing function, to determine the least restrictive means of nutrition, to objectively assess the effectiveness of previously identified strategies / precautions, and to identify appropriate intervention approaches / strategies to implement during treatment sessions. OUTCOME 6: the Patient will participate in continual assessment of the cognitive communication profile throughout the chemoradiation cycle to facilitate comprehensive objective date in regards to changes in baseline level of cognitive functioning at the supervised level OUTCOME 7: goal adjustment as needed post MBS Diomedes Bentley M.A., CCC-INTAKE MANAGER MBSImP Certified, LSVT Certified [facility] Speech-Language Pathology Department [email or web address]
[2019-02-17 12:08] VITALS: BMI 22.0
== END 2019-07-17 17:00 | disposition home or self-care (01) ==
LOC: SP 10:00
PROVIDERS: Family Provider Nurse Practitioner; PCP Nurse Practitioner; Referring Provider Student in an Organized Health Care Education/Training Program; Visit Provider Student in an Organized Health Care Education/Training Program
DX: C76.0 Malignant neoplasm of head, face and neck (principal)
CPT/HCPCS: 92526; 92610

== ENCOUNTER → 2019-10-07 13:02 | Outpatient (CLI) | payer OTHER, SELFPAY ==
[2019-06-25 16:16] VITALS: BMI 22.6
[2019-07-16 13:34] VITALS: BMI 19.8
--- NOTE | 2019-10-07 13:04 | CT_ITS ---
STUDY: CT CHEST WITH CONTRAST REASON FOR EXAM: Male, 59 years old. No evidence of carcinoma unknown origin. Neck adenopathy. Patient on chemotherapy. RADIATION DOSAGE (If Supplied By Facility): CTDIvol = ( 8.75 ) mGy, DLP = ( 331.12 ) mGycm TECHNIQUE: Transaxial imaging was performed following intravenous administration of IV 100mL Isovue-300. Multiplanar coronal and sagittal images were reformatted. Individualized dose optimization techniques were used for this CT. COMPARISON: PET/CT scan, June 29, 2019. FINDINGS: Right jugular Port-A-Cath. The lungs are mildly hyperexpanded. There is no focal mass or infiltrate. There is no demonstrated pleural abnormality. Normal heart and pericardium. Normal mediastinum. Normal hilar regions. Normal enhanced pulmonary arteries. Normal aorta arch and descending thoracic aorta. Degenerative changes of the thoracic spine. There is no demonstrated abnormality of the visualized upper abdomen. CT/Chest WITH Contrast IMPRESSION: Normal enhanced CT Chest examination. Electronically Signed: Primo Medina DO at 22:52 EST Tel [phone], Service support ,
[2019-10-07 13:36] LABS: CREATININE FINGERSTICK < 0.6 mg/dL (0.70-1.30); EGFR FINGERSTICK > 60.0000 mL/min (>60)
== END ==
LOC: CT 13:04
PROVIDERS: Family Provider Nurse Practitioner; PCP Nurse Practitioner; Referring Provider Internal Medicine Hematology & Oncology; Visit Provider Internal Medicine Hematology & Oncology
DX: R91.8 Other nonspecific abnormal finding of lung field (principal); C76.0 Malignant neoplasm of head, face and neck; C77.9 Secondary and unspecified malignant neoplasm of lymph node, unspecified
CPT/HCPCS: 71260; Q9967

== ENCOUNTER 2019-11-09 14:38 | Outpatient (RCR) | payer OTHER, SELFPAY ==
[2019-06-25 16:16] VITALS: BMI 22.6
[2019-11-05 13:39] VITALS: BMI 20.1
== END 2019-11-21 23:59 ==
LOC: NS 14:38
PROVIDERS: PCP Nurse Practitioner; Visit Provider Internal Medicine Hematology & Oncology
DX: Z71.3 Dietary counseling and surveillance (principal); C80.1 Malignant (primary) neoplasm, unspecified; C77.9 Secondary and unspecified malignant neoplasm of lymph node, unspecified

== ENCOUNTER → 2020-03-30 12:59 | Outpatient (CLI) | payer OTHER, SELFPAY ==
[2019-06-25 16:16] VITALS: BMI 22.6
[2020-01-13 13:08] VITALS: BMI 20.5
--- NOTE | 2020-03-30 13:00 | SP.MBSS_ITS ---
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 PREVIOUS MODIFIED BARIUM SWALLOW STUDY: 06/26/2019 MBS revealed moderate oropharyngeal dysphagia (DSRS: 4; SPS: 5; DIGEST: grade II) with grade III SILENT and overt aspiration of thin liquids. ASSESSMENT PARAMETERS: The Patient participated in a Modified Barium Swallow (MBS) study on 03/30/2020. This study was recorded in the lateral view and images were sent to PACs for storage. Scoring was completed through each trial using the 8- point Penetration-Aspiration Scale (PAS) and the Videofluoroscopic Scale Score (VSS), and summarized via the Modified Barium Swallow Impairment Profile (MBSImP) and the Bolus Residue Scale (BRS), with severity scoring through the Swallowing Performance Scale (SPS), and the Dynamic Imaging Grade of Swallowing Toxicity (DIGEST), and recommended diet textures through the International Dysphagia Diet Standardisation Initiative (IDDSI) RESULTS OF THE EVALUATION: The Patient presents with moderate pharyngeal dysphagia (SPS: 5; DIGEST: grade I) with grade III SILENT aspiration of thin liquids OBJECTIVE ASSESSMENT OF SWALLOW FUNCTION (QUANTITATIVE ? PER TRIAL): PENETRATION / ASPIRATION SCALE (SENIOR): 1 = does not enter airway 2 = enters airway/above vocal folds/ejected 3 = enters airway/above vocal folds/not ejected 4 = enters airway/contacts vocal folds/ejected 5 = enters airway/contacts vocal folds/not ejected 6 = enters airway/below vocal folds/ejected 7 = enters airway/below vocal folds/not ejected despite effort 8 = enters airway/below vocal folds/no effort VIDEOFLOROSCOPIC SCALE SCORE (SENIOR): Grade I = aspiration of material that has penetrated into the laryngeal vestibule, intact cough reflex Grade II = aspiration < 10 % of the bolus, intact cough reflex Grade III = aspiration of < 10 % of the bolus, reduced cough reflex or aspiration of > 10 % of the bolus, intact cough reflex Grade IV = aspiration of > 10 % of the bolus, reduced cough reflex PENETRATION / ASPIRATION SCALE (SCORE) WITH VIDEOFLOROSCOPIC SCALE SCORE: Thin liquid - 5 mL tsp.: 1 Thin liquids via cup (single sip): 2 Thin liquids via cup (single sip): 1 Thin liquids via cup (single sip): 2 Thin liquids via cup (single sip): 3 Thin liquids via cup (single sip): 2 Thin liquids via cup (single sip): 2 Thin liquids via cup (single sip): 2 Pudding via spoon: 1 Regular textured cookie: 1 Thin liquids via straw (single sip): 5 Thin liquids via straw (single sip): 3, 8* ? Grade III Thin liquids via straw (chin tuck): 2 Thin liquids via straw (chin tuck): 2 Thin liquids via straw (chin tuck): 3 Thin liquids via straw (chin tuck): 2 * denotes progression of previously penetrated material OBJECTIVE ASSESSMENT OF SWALLOW FUNCTION (QUANTITATIVE ? AGGREGATE): MODIFIED BARIUM SWALLOW IMPAIRMENT PROFILE (MBSImP) LABIAL SEAL: 0 (of 4) no labial escape TONGUE CONTROL: 0 (of 3) cohesive bolus BOLUS PREPARATION / MASTICATION: 0 (of 3) timely and efficient BOLUS TRANSPORT / LINGUAL MOTION: 0 (of 4) brisk tongue motion ORAL RESIDUE: 1 (of 4) trace residue lining oral structures INITIATION OF PHARYNGEAL SWALLOW: 2 (of 4) posterior surface of epiglottis SOFT PALATE ELEVATION: 0 (of 4) no bolus between soft palate & pharyngeal wall LARYNGEAL ELEVATION: 1 (of 3) partial superior movement / approximation ANTERIOR HYOID EXCURSION: 1 (of 2) partial movement EPIGLOTTIC MOVEMENT: 0 (of 2) complete inversion LARYNGEAL VESTIBULE CLOSURE: 1 (of 2) incomplete closure PHARYNGEAL STRIPPING WAVE: 1 (of 2) present / diminished PE SEGMENT OPENIN (of 3) partial distension / duration / obstruction TONGUE BASE RETRACTION: 2 (of 4) narrow column of contrast PHARYNGEAL RESIDUE: 2 (of 4) collection of residue ESOPHAGEAL BOLUS CLEARANCE: could not view BOLUS RESIDUE SCALE (BRS): BRS SCORE: 4 (of 6) BRS SCORE DESCRIPTION: residue in valleculae and posterior pharyngeal wall OBJECTIVE ASSESSMENT OF SWALLOW FUNCTION (SEVERITY GRADING): SWALLOWING PERFORMANCE SCALE (SPS): SPS CLASSIFICATION: 5 (moderate) SPS CLASSIFICATION CHARACTERISTICS: aspiration noted on examination; requires modified diet and / or swallowing precautions to minimize risk of aspiration DYNAMIC IMAGING GRADE OF SWALLOWING TOXICITY (DIGEST) DIGEST SAFETY GRADE: grade 1 DIGEST EFFICIENCY GRADE: grade 1 SUMMARY DIGEST GRADE: grade 1 (mild) OBJECTIVE ASSESSMENT OF SWALLOW FUNCTION (QUALITATIVE): ORAL PREPARATORY PHASE: competent bolus manipulation; sufficient anterior oral containment during oral manipulation; preserved management of breathing / bolus formation without disrupted E ? S ? E pattern ORAL TRANSITIONAL PHASE: no presence of transitional incompetence; no bolus consolidation impairments; sufficient oral containment across textures; no presence of premature posterior bolus loss PHARYNGEAL PHASE: age appropriate pharyngeal phase synchrony; mild reduction in hyolaryngeal excursion and duration resulting inconsistent laryngeal vestibule pressure generated to expel penetrated material; mild pharyngeal dysmotility most prominently with solid textures with consolidation predominantly within the vallecula; appropriate velopharyngeal functioning ESOPHAGEAL PHASE: no obvious esophageal phase abnormalities observed. CONTRIBUTING / COMPLICATING FACTORS AND NOTABLE FINDINGS: absent cough in response to tracheobronchial aspiration; sufficient volitional cough intensity to expel penetrated material / laryngotracheal aspiration RESPONSE TO STRATEGIES: all deficits managed successfully with reduction in bolus rate / volume adjustments, execution of the chin tuck posture with use of a straw, execution of a liquid wash following solid ingestion, and diet texture / viscosity adjustments. DYSPHAGIA ASSOCIATED MEDICAL / INTERVENTION CONSIDERATIONS: The Patient was noted to SILENTLY aspirate with very scant quantities of previously penetrated thin liquids (less than 5% of any bolus), with clinical assessment at bedside relying on identification of classic overt signs and symptoms of aspiration considered unreliable. The Patient does express a desire to remain on thin liquids given the functional improvements in tolerance with execution of the chin tuck posture in conjunction with reductions in bolus volumes, which is reasonable given his overall maintained medical condition, maintained ambulatory abilities, and strong dedication to all recommendations that have been made throughout the intervention cycle that would suggest a higher likelihood for compliance and sufficient execution. I will recommend completion of an annual modified barium swallow study (if clinically appropriate) to continually assess the presence and extent of post irradiation dysphagia and presence / extent of silent and overt aspiration, as continued changes in the swallow pattern post irradiation remains high. I would consider the Patient to be at a higher risk of aspiration related medical complications / aspiration pneumonia / aspiration related pulmonary syndrome secondary to the diagnosis of oropharyngeal cancer status post chemoradiation, presence of dysphagia with pharyngeal phase impairment and silent aspiration identified under fluoroscopy, upper edentulous status, and intermittent tube feeding use. Would consider the Patent to be at a higher risk of oropharyngeal colonization with respiratory pathogens secondary to the Patient?s recent poor nutritional status, xerostomia, recent use of antibiotics possibly provoking a variety of respiratory alida, placement on alternative means of nutrition, and prevalence of gastroesophageal reflux disease. Aspiration of saliva contaminated with pathogens can lead to pulmonary infections, with creation, implementation, and adherence to an aggressive oral and dental care program is essential. Will continue to recommend an aggressive oral care program that includes pre-rinse use prior to water intake; routine oral care / denture care in the a.m., prior to oral intake, after oral intake, and prior to bed via toothbrush / swab / rinse; use of oral moisturizers as needed to reduce impact of xerostomia; and frequent dental checkups. INTERVENTION RECOMMENDATIONS AND CONSIDERATIONS: The Patient requires continued skilled speech-language intervention targeting diet texture management and training / implementation of recommended compensatory strategies; continued training and implementation of a home based prophylactic swallowing exercise program to promote the highest level of preserved post-irradiation swallow functioning; continued training and implementation of a home oral care protocol to reduce the effects of xerostomia and improve / maintain the integrity of the oral mucosa reducing the risk of aspiration related pulmonary complications; and continued Patient education regarding vishnu and post-irradiation dysphagia and associated symptomology; POST ASSESSMENT EDUCATION: Results and recommendations were discussed with the Patient immediately following MBS completion, with the Patient verbalizing understanding and agreement with all recommendations and education provided. We discussed factors impacting effects of aspiration, to include: the quantity of aspiration, the depth of aspiration (trachea or distal airways), and the physical properties of the aspirate. We further discussed consequences of oropharyngeal dysphagia, to include pulmonary complications from tracheobronchial aspiration; potential for airway obstruction / asphyxiation; inadequate oral intake because of dysphagia; reduced liquid intake resulting in dehydration; reduced caloric intake resulting in unintentional and potentially medically complicating loss of weight; impairment in mental and physical condition that can include deterioration in the quality of life, and increased risk for mortality / . I provided brief overview of signs and symptoms of aspiration, with recommendations for the Patient to further discuss symptoms with the Patients primary care provider. DIET TEXTURE RECOMMENDATIONS: Will recommend a regular - soft textured (IDDSI: 6), thin liquid diet (IDDSI: 0) diet RECOMMENDED COMPENSATORY STRATEGIES: Consider cutting tougher textures into bite sized pieces, execution of the chin tuck posture via straw with liquids, reduced bolus volume / rate of ingestion, liquid chaser at reasonable intervals, seated upright at 90 degrees during PO intake, remain upright for 30-60 minutes post meal (GERD precaution), medications one at a time with purees. IMAGE COUNT: Diomedes Bentley M.A., MARCIA-DISTRICT ENGINEER, CBIS MBSImP Certified, LSVT Certified [facility] Speech-Language Pathology Department Email: [email or web address]
== END ==
PROVIDERS: PCP Nurse Practitioner; Referring Provider Student in an Organized Health Care Education/Training Program; Visit Provider Student in an Organized Health Care Education/Training Program
DX: R13.10 Dysphagia, unspecified (principal)
CPT/HCPCS: 74230; 92611

== ENCOUNTER → 2020-04-06 13:20 | Outpatient (CLI) | payer OTHER, SELFPAY ==
[2019-06-25 16:16] VITALS: BMI 22.6
[2020-01-13 13:08] VITALS: BMI 20.5
--- NOTE | 2020-04-06 13:23 | CT_ITS ---
STUDY: CT CHEST WITH CONTRAST REASON FOR EXAM: Male, 59 years old. F/U RESPONSE TO TREATMENT, THROAT/LUNG CANCER RAD + CHEMO. RADIATION DOSAGE (If Supplied By Facility): CTDIvol = ( 9.62 ) mGy, DLP = ( 236.87 ) mGycm TECHNIQUE: Transaxial imaging was performed following intravenous administration of IV 100mL Isovue-300. Individualized dose optimization techniques were used for this CT. COMPARISON: Previous study of 10/07/2019 FINDINGS: There is a 4 mm pleural-based nodule of the right lower lobe image 100 series 4. There is a 5 mm right middle lobe nodule image 91 series 4. There is a pleural-based 2 mm nodule of the left lower lobe image 93 series 4. There is a 3 mm pleural-based nodule of the left lower lobe image 100 series 4. There is a 2 mm pleural-based nodule of the posterior left lower lobe image 103 series 4. There is no demonstrated pleural abnormality. Normal heart and pericardium. Normal mediastinum. Normal hilar regions. There is dilatation of the main pulmonary artery measuring up to 3.2 cm in diameter. Normal aorta arch and descending thoracic aorta. There is an increased thoracic kyphosis. There is diffuse endplate spondylosis of the visualized cervical, thoracic, and lumbar spine. No lytic or blastic osseous changes are seen. There is no demonstrated abnormality of the visualized upper abdomen. CT/Chest WITH Contrast IMPRESSION: 1. Bilateral pulmonary nodules, stable in the interval. Appropriate follow-up using Fleischner Society criteria is recommended. 2. Dilatation of the main pulmonary artery measuring up to 3.2 cm in diameter. This may be associated with pulmonary hypertension. 3. Increased thoracic kyphosis. Diffuse endplate spondylosis of the visualized cervical, thoracic, and lumbar spine. No lytic or blastic osseous changes are seen. Electronically Signed: Jono Duong MD at 17:15 EDT , Service support ,
[2020-04-06 13:40] LABS: CREATININE FINGERSTICK 0.7 mg/dL (0.70-1.30); EGFR FINGERSTICK > 60.0000 mL/min (>60)
[2020-04-06 14:47] LABS: Absolute Lymphocyte Count 1.08 X10^3/uL (0.83-4.51); Absolute Neutrophil Count 3.9 X10^3/uL (2.0-7.7); Basophil# 0.05 X10^3/uL; Basophil% 0.8 % (0-1); Eosinophil# 0.09 X10^3/uL; Eosinophils% 1.5 % (0-5); Hematocrit 36.1 % (40-54); Hemoglobin 12.8 g/dL (13.0-16.5); Lymphocyte # 1.08 X10^3/ul (4.0); Lymphocyte % 17.9 % (19-41); Mean Corp Hgb Conc 35.5 g/dL (32-36); Mean Corpuscular Hgb 33.4 pg (27.0-32.0); Mean Corpuscular Volume 94.3 fL (80-94); Monocyte# 0.87 X10^3/uL; Monocyte% 14.5 % (0-10); NRBC Flagged by Analyzer 0 % (0-5); Neutrophil # 3.87 X10^3/uL (2.7-7.7); Neutrophil % 64.3 % (47-70); Platelet Count 298 K/mm3 (150-450); RBC Distribution Width CV 13.2 % (11.6-14.6); RBC Distribution Width SD 45.1 fl (35.1-43.9); Red Blood Count 3.83 M/mm3 (4.6-6.2)
[2020-04-06 15:03] LABS: AST(SGOT) 27 U/L (15-37); Alanine Aminotransfer ALT/SGPT 28 U/L (16-61); Albumin, Serum 3.5 g/dL (3.2-5.0); Alkaline Phosphatase 98 U/L (45-117); Anion Gap 6 (5-15); BUN 12 mg/dL (7-18); BUN/Creat Ratio 24.4 RATIO (10-20); Calcium,Total 8.4 mg/dL (8.5-10.1); Chloride 93 mmol/L (98-107); Creatinine, Serum 0.49 mg/dL (0.70-1.30); EST Glomerular Filtration Rate 185 mL/min (>60); Est Glom Filt Rate - Afr Amer 224 mL/min (>60); Globulin 3.5 g/dL (2.2-4.2); Glucose 91 mg/dL (74-106); Sodium Level 126 mmol/L (136-145)
== END ==
PROVIDERS: PCP Nurse Practitioner; Referring Provider Internal Medicine Hematology & Oncology; Visit Provider Internal Medicine Hematology & Oncology
DX: C76.0 Malignant neoplasm of head, face and neck (principal); C77.9 Secondary and unspecified malignant neoplasm of lymph node, unspecified; R91.8 Other nonspecific abnormal finding of lung field
CPT/HCPCS: 36415; 71260; 80053; 85025; Q9967

== ENCOUNTER 2020-04-13 16:00 | Outpatient (RCR) | payer OTHER, SELFPAY ==
[2019-06-25 16:16] VITALS: BMI 22.6
[2019-07-16 13:34] VITALS: BMI 19.8
== END 2020-04-13 19:00 | disposition home or self-care (01) ==
LOC: SP 16:00
PROVIDERS: Family Provider Nurse Practitioner; PCP Nurse Practitioner; Referring Provider Student in an Organized Health Care Education/Training Program; Visit Provider Student in an Organized Health Care Education/Training Program
DX: C76.0 Malignant neoplasm of head, face and neck (principal); R13.10 Dysphagia, unspecified
CPT/HCPCS: 92526; 92610

== ENCOUNTER → 2020-09-02 14:53 | Outpatient (CLI) | payer OTHER, SELFPAY ==
[2019-06-25 16:16] VITALS: BMI 22.6
[2020-08-25 14:44] VITALS: BMI 20.5
--- NOTE | 2020-09-02 14:54 | CT_ITS ---
STUDY: CT CHEST WITH CONTRAST REASON FOR EXAM: Male, 60 years old. Lung nodule follow-up, history of head and neck cancer prior chemotherapy and radiation RADIATION DOSAGE (If Supplied By Facility): CTDIvol = ( 8.36 ) mGy, DLP = ( 266.74 ) mGycm TECHNIQUE: Transaxial imaging was performed following intravenous administration of IV 75mL Isovue-300. Individualized dose optimization techniques were used for this CT. COMPARISON: April 06 2020, October 07 2019, June 29 2019 FINDINGS: Lungs are severely emphysematous with multiple scattered stable nodules. There is a new small, 3 mm nodule in the anterior segment of the right upper lobe, image 36/136 series #4. Remainder of the nodules are stable since priors and are all less than 5 mm and low risk appearing. Additional 1 -- 2 mm nodules are present and are too small to reliably characterize between the current and prior scan due to differences in technique, inspiration, etc. Central airways are patent. Pleural surfaces are intact. Mediastinal contents are normal. Cardiac chambers are normal in size and shape. Pericardium is normal. Osseous structures are intact with exaggerated lower thoracic kyphosis without osseous lesions. Upper abdominal structures are normal. CT/Chest WITH Contrast IMPRESSION: 1. Severe emphysema. 2. Multiple low risk and stable over many nodules. Follow-up in one year is advised. Electronically Signed: Gin Fuentes, at 21:42 EST Tel , Service support ,
== END ==
PROVIDERS: PCP Nurse Practitioner; Referring Provider Internal Medicine Hematology & Oncology; Visit Provider Internal Medicine Hematology & Oncology
DX: C76.0 Malignant neoplasm of head, face and neck (principal); R22.1 Localized swelling, mass and lump, neck; R91.8 Other nonspecific abnormal finding of lung field
CPT/HCPCS: 71260; Q9967

== ENCOUNTER → 2021-02-27 12:43 | Outpatient (CLI) | payer OTHER, SELFPAY ==
[2019-06-25 16:16] VITALS: BMI 22.6
[2020-11-28 15:34] VITALS: BMI 20.6
--- NOTE | 2021-02-27 12:45 | CT_ITS ---
STUDY: CT CHEST WITH CONTRAST REASON FOR EXAM: Male, 60 years old. F/U LUNG NODULES . History of H/O HEAD NECK CANCER RADIATION DOSAGE (If Supplied By Facility): CTDIvol = ( 9.43 ) mGy, DLP = ( 212.16 ) mGycm TECHNIQUE: Transaxial imaging was performed following intravenous administration of IV 100mL Isovue-370. Multiplanar coronal and sagittal images were reformatted. Individualized dose optimization techniques were used for this CT. COMPARISON: Comparison is made with prior examination dated 09/02/2020. FINDINGS: Hyperinflation. Findings include with emphysema more prominent in the upper lobes. Stable small scattered noncalcified nodules seen in both lungs. There is no demonstrated pleural abnormality. Normal heart and pericardium. Normal mediastinum. Normal hilar regions. Normal enhanced pulmonary arteries. Normal aorta arch and descending thoracic aorta. There are multi-level degenerative changes of the thoracic spine. There is no demonstrated abnormality of the visualized upper abdomen. CT/Chest WITH Contrast IMPRESSION: Stable examination. Stable emphysematous changes. Electronically Signed: Bib Reeves MD at 14:35 EDT , Service support ,
[2021-02-27 13:00] LABS: CREATININE FINGERSTICK 0.8 mg/dL (0.70-1.30); EGFR FINGERSTICK > 60.0000 mL/min (>60)
== END ==
LOC: CT 12:44
PROVIDERS: PCP Nurse Practitioner; Referring Provider Internal Medicine Hematology & Oncology; Visit Provider Internal Medicine Hematology & Oncology
DX: C77.9 Secondary and unspecified malignant neoplasm of lymph node, unspecified (principal); C76.0 Malignant neoplasm of head, face and neck; R91.8 Other nonspecific abnormal finding of lung field
CPT/HCPCS: 71260; Q9967

== ENCOUNTER 2021-07-18 13:09 | Emergency (ER) | payer OTHER, SELFPAY ==
[2019-06-25 16:16] VITALS: BMI 22.6
[2021-07-18 13:10] VITALS: BP 193/92; PULSE 89; RESP 16; TEMP 36.9; O2SAT 100; BMI 20.3
--- NOTE | 2021-07-18 13:20 | ED.RN ---
pt. had multiple teeth pulled. x2 months ago. states last night noticed. increased pain. this am. jaw was hurting where teeth were pulled. reddened area noted. pt. has dentist appt. scheduled for saturday
--- NOTE | 2021-07-18 13:34 | CT_ITS ---
STUDY: CTA HEAD AND NECK WITH CONTRAST REASON FOR EXAM: Male, 61 years old. Ringing in ears RADIATION DOSAGE (If Supplied By Facility): CTDIvol = ( 30.31 ) mGy, DLP = ( 1501.15 ) mGycm TECHNIQUE: CT angiography was performed with a multi-detector CT scanner. Data acquisition was obtained from the skull base through the vertex following intravenous administration of IV 100mL Isovue-370. MIP images were reconstructed from the axial data set. Post-processing of the angiographic images was performed, with multiplanar reformation and 3D reconstruction. Individualized dose optimization techniques were used for this CT. COMPARISON: No relevant priors. FINDINGS: Normal bilateral petrous carotid arteries. There is calcified plaque formation of the right cavernous carotid artery, without a cross-sectional luminal stenosis. There is calcified plaque formation of the left cavernous carotid artery, without a cross-sectional luminal stenosis. Normal right A1 segments of the anterior cerebral artery. Normal left A1 segments of the anterior cerebral artery. Normal intact anterior communicating artery (ACOM). Normal bilateral A2 segments of the anterior cerebral arteries. Normal right M1 and M2 segments of the middle cerebral arteries, with a normal M1 bifurcation. Normal left M1 and M2 segments of the middle cerebral arteries, with a normal M1 bifurcation. Normal right posterior communicating artery (PCOM). Normal left posterior communicating artery (PCOM). Normal bilateral vertebral arteries. Normal basilar artery with a normal basilar bifurcation. The visualized bilateral superior cerebellar (SCA) arteries are normal. Normal bilateral P1, P2 and visualized P3 segments of the posterior cerebral arteries. There is no demonstrated aneurysm of the [place]. A tiny lacuna is seen in the insular cortex of the left temporal lobe. Mild degree of cerebral atrophy. Mild degree of mucosal thickening of the ethmoid sinuses bilaterally. There is evidence of polyps or retention cysts at the bases of both maxillary sinuses. AORTIC ARCH: Normal visualized aortic arch. Normal origins of the brachiocephalic, left common carotid, and left subclavian arteries. RIGHT CAROTID ARTERIES: Normal right common carotid artery (CCA). Normal right common carotid bulb. There is mild atherosclerotic plaque formation of the origin of the right internal carotid artery with less than 50% cross sectional diameter stenosis. Normal visualized cervical portion of the right internal carotid artery. Normal origin of the right external carotid artery (ECA). LEFT CAROTID ARTERIES: Normal left common carotid artery (CCA). Normal left common carotid bulb. Normal origin of the left internal carotid (ICA) artery without a hemodynamically significant stenosis. Normal visualized cervical portion of the left internal carotid artery. Normal origin of the left external carotid artery (ECA). VERTEBRAL ARTERIES: Normal bilateral vertebral arteries. CT/CTA Head AND Neck W/ Contrast IMPRESSION: Mild calcific plaque at the origin of the right internal carotid artery causing less than 50% narrowing. Electronically Signed: Bib Reeves MD at 14:58 EDT , Service support ,
--- NOTE | 2021-07-18 13:36 | EDS_ITS ---
HPI History of Present Illness Chief Complaint: Other, Pain/Inj Detail of Chief Complaint: Ringing in ears Informant: patient Narrative Narrative: Patient presents to the emergency department with ringing in ears and noises in his head that he started noticing last evening when lying flat. Patient states he would get up and go downstairs and symptoms would resolve but then when he tried to lay down again he would hear a ringing in music like sound in his ears. Patient states he had a hard time sleeping because of this. He denies significant headache. Patient also has an appointment scheduled in 6 days to see a dentist as he has had some issues with some teeth that were pulled and has had a nonhealing hole in his mandible. He denies any changes to it or fevers or chills or sweats. Family was concerned about potential for systemic infection. [facility] Medical History (Updated 07/18/21 @ 15:[address] Jason Robles, ) Acid reflux Anemia Cancer related pain Difficulty swallowing Epigastric pain Hypertension malignant squamous cell carcinoma lt neck Mass of left side of neck peg tube removed Home Medications Levothyroxine 75 mg PO DAILY 08/25/20 [History Last Taken Unknown] pentoxifylline 400 mg tablet,extended release 400 mg PO TID #90 tab 05/17/21 [Rx Last Taken Unknown] vitamin E mixed 1,000 unit capsule 1,000 unit PO DAILY #30 cap 05/17/21 [Rx Last Taken Unknown] Allergy/AdvReac Type Severity Reaction Status Date / Time No Known Allergies Allergy Verified 07/18/21 13:15 Family History Mother CVA (cerebral vascular accident) Surgical History history of biopsy neck History of removal of Port-a-Cath S/P percutaneous endoscopic gastrostomy (PEG) tube placement (~01/26/19) s/p port placement (~01/26/19) Social History (Updated 03/08/21 @ 10:02 by Angélica Hastings) Smoking Status: Light Smoker (<10/day) Tobacco: How many years used: 30 second hand exposure: Yes alcohol intake: current alcohol intake frequency: a few times a week substance use type: does not use seatbelt use: sometimes do you feel safe at home: Yes ROS ROS ED ROS Narrative Ringing in ears and music in head. Constitutional Constitutional ED: Reports systems reviewed and no addt'l complaints, except as documented; Denies body ache(s), change in weight or chills Eyes Eyes: Denies acute decrease in peripheral vision, change in vision, double vision or loss of vision ENT ENT ED: Reports none; Denies ear pain, lip swelling, loss taste/smell, neck pain, otalgia or sore throat Cardiovascular Cardiovascular: Reports none; Denies abdominal pain, chest pain with activity, leg edema, lightheadedness, palpitations, rapid heart rate or syncope Respiratory/Chest Respiratory/Chest: Reports none; Denies change in mental status, dry cough, dyspnea, hemoptysis, shortness of breath at rest or shortness of breath with exertion Gastrointestinal Gastrointestinal: Reports none; Denies abdominal pain, change in stool character, diarrhea, hematemesis, hematochezia, melena, rectal bleeding or vomiting Genitourinary Genitourinary ED: Reports none; Denies abdominal discomfort, anuria, dysuria, genital pain or polyuria Musculoskeletal Musculoskeletal: Reports none; Denies arthralgias, back pain, difficulty walking, extremity pain, muscle weakness or myalgias Integumentary Reports none; Denies abscess or rash Neurologic Neurologic: Reports none; Denies abnormal gait, confusion, focal weakness, frequent falls, headache(s), loss of vision, numbness, paresthesias, radicular pain, vertigo or weakness Psychiatric Psychiatric: Reports systems reviewed and no addt'l complaints, except as documented and none; Denies behavioral changes, confusion, difficulty concentrating, hallucinations, suicidal ideation, tactile hallucinations or visual hallucinations Endocrine Endocrinology: Denies none, cold intolerance, excessive sweating, fatigue or heat intolerance Hematologic/Lymphatic Hematologic/Lymphatic: Reports none; Denies anemia, easy bleeding or easy bruising Allergic/Immunologic Allergic/Immunologic ED: Denies as per HPI, none, lip swelling, mouth swelling, throat swelling, tongue swelling or hives EXAM Physical Exam Const Vital Signs: 07/18/21 13:10 07/18/21 13:17 07/18/21 15:06 Temperature 98.5 F Temperature Source Temporal Pulse Rate 89 Pulse Rate [Lying] 67 Pulse Rate [Sitting] 72 Pulse Rate [Standing] 78 Respiratory Rate 16 Respiratory Effort Normal Respiratory Pattern Normal Blood Pressure 193/92 H Blood Pressure [Lying] 176/83 H Blood Pressure [Sitting] 174/92 H Blood Pressure [Standing] 169/87 H Blood Pressure Mean 125 Blood Pressure Mean [Lying] 114 Blood Pressure Mean [Sitting] 119 Blood Pressure Mean [Standing] 114 Pulse Ox 100 Oxygen Delivery Method Room Air Positive well nourished and well developed General Appearance ED: well developed and NAD HEENT Reports TM's clear and moist mucous membranes HEENT Narrative: Firm and indurated tissues under his submental region related to prior scarring from radiation and chemotherapy. Evaluation of his mouth does reveal a defect in the gingiva measuring approximately 3.5 x 2 cm. He is edentulous. There is no facial erythema or cellulitis. No discrete abscess noted. TMs are clear bilaterally. normocephalic and atraumatic; Negative for trauma or tenderness Tympanic Membrane ED: Yes TM's clear Eyes PERRL and EOMs intact bilaterally General Eye ED: Negative for pale conjunctiva or scleral icterus Neck no lymphadenopathy, supple and no JVD General: Negative for tenderness Chest Wall inspection of chest normal and palpation of chest normal Chest: Negative for tenderness Resp normal respiratory effort and clear to auscultation bilaterally Effort and Inspection: Negative for respiratory distress or pain with movement Auscultation: Negative for rhonchi, wheezes or diminished lung sounds Cardio regular rate, regular rhythm, S1 normal heart sound, S2 normal heart sound and no murmurs Peripheral Pulses: pulses 2+ throughout GI normal to inspection, nondistended, normoactive bowel sounds, soft to palpation, non-tender, non-distended and no masses Back/Spine no CVA tenderness and no thoracic nor lumbar tenderness Extremity normal to inspection General Extremety ED: Negative for edema General Extremity: Negative for edema Neuro oriented x3, CN's II-XII intact bilaterally, no sensory deficits noted and gait normal Sensorium / Orientation: awake, alert, oriented to person, oriented to place and oriented to time Motor Exam: strength 5/5 throughout and strength abnormal Psych mental status grossly normal Skin no rashes or lesions noted and no wounds MDM MDM MDM Narrative Medical decision making narrative: IV line established on arrival. CTA of the head and neck with contrast was unremarkable. Patient was noted to have low sodium of 123. Evaluating the last several years of blood work it was noted that patient chronically has a depressed sodium and has been as low as 121 but more recently has been 126 and 127. His family member states that he drinks every day. I suspect his low sodium is likely related to alcohol use as he does not use diuretics. He is not on blood pressure medication. Patient advised to follow-up with his primary care physician within the next 3 to 5 days to have repeat blood work. Also recommended that he get started on blood pressure medication. At this point etiology of the ringing in his head is unclear and he has not had any more such symptoms. He denies aspirin use. Lab Data Attestation: I reviewed the patient's lab results. Labs: Laboratory Results - last 24 hr 07/18/21 07/18/21 13:48 13:48 WBC 7.3 RBC 4.62 Hgb 14.8 Hct 42.2 MCV 91.3 MCH 32.0 MCHC 35.1 RDW Std Deviation 42.0 RDW Coeff of Jennifer 12.5 Plt Count 320 MPV 8.2 Immature Gran % (Auto) 0.700 Neut % (Auto) 65.9 Lymph % (Auto) 20.1 [place] % (Auto) 11.9 H Eos % (Auto) 0.7 Baso % (Auto) 0.7 Absolute Neuts (auto) 4.8 Absolute Lymphs (auto) 1.47 Nucleated RBC % 0 Sodium 123 L Potassium 3.8 Chloride 86 L Carbon Dioxide 27.0 Anion Gap 10 BUN 6 L Creatinine 0.46 L Estim Creat Clear Calc 144.21 Est GFR (MDRD) Af Amer 242 Est GFR (MDRD) Non-Af 200 BUN/Creatinine Ratio 13.1 Glucose 90 Calcium 9.2 Radiography Diagnostic Testing: Clinical Impression(s) from Imaging Studies Head/Neck CTA 07/18/21 13:34 IMPRESSION: Mild calcific plaque at the origin of the right internal carotid artery causing less than 50% narrowing. Electronically Signed: Bib Reeves MD at 14:58 EDT , Service support , Discharge Plan Triage Chief Complaint: Other, Pain/Inj ED Provider: Jason Robles Dx/Rx/DC Orders Clinical Impression: Ear ringing, Acute hyponatremia Instructions: Tinnitus (Ringing in the Ears), ED Hyponatremia Prescriptions: No Action Levothyroxine 75 mg PO DAILY RF: 0 pentoxifylline 400 mg tablet extended release 400 mg PO TID Qty: 90 RF: 5 vitamin E mixed 1,000 unit capsule 1,000 unit PO DAILY Qty: 30 RF: 5 Primary Care Provider: Kya Anderson NP Referrals: Kya Anderson NP, [facility]OR[facility]ERK-C [Primary Care Provider] - 3-5 Days Disposition Disposition: Home, Self Care
[2021-07-18 14:00] LABS: Absolute Lymphocyte Count 1.47 X10^3/uL (0.83-4.51); Absolute Neutrophil Count 4.8 X10^3/uL (2.0-7.7); Basophil# 0.05 X10^3/uL; Basophil% 0.7 % (0-1); Eosinophil# 0.05 X10^3/uL; Eosinophils% 0.7 % (0-5); Hematocrit 42.2 % (40-54); Hemoglobin 14.8 g/dL (13.0-16.5); Lymphocyte # 1.47 X10^3/ul (0.83-4.51); Lymphocyte % 20.1 % (19-41); Mean Corp Hgb Conc 35.1 g/dL (32-36); Mean Corpuscular Volume 91.3 fL (80-94); Mean Platelet Vol. 8.2 fl (6.2-12.0); Monocyte# 0.87 X10^3/uL; Monocyte% 11.9 % (0-10); NRBC Flagged by Analyzer 0 % (0-5); Neutrophil # 4.82 X10^3/uL (2.7-7.7); Neutrophil % 65.9 % (47-70); Platelet Count 320 K/mm3 (150-450); RBC Distribution Width CV 12.5 % (11.6-14.6); Red Blood Count 4.62 M/mm3 (4.6-6.2); White Blood Count 7.3 K/mm3 (4.4-11.0)
[2021-07-18 14:10] LABS: Anion Gap 10 (5-15); BUN 6 mg/dL (7-18); BUN/Creat Ratio 13.1 RATIO (10-20); Calcium,Total 9.2 mg/dL (8.5-10.1); Chloride 86 mmol/L (98-107); Creatinine, Serum 0.46 mg/dL (0.70-1.30); EST Glomerular Filtration Rate 200 mL/min (>60); Est Glom Filt Rate - Afr Amer 242 mL/min (>60); Estimated Creatinine Clearance 144.21 ml/min; Glucose 90 mg/dL (74-106); Potassium 3.8 mmol/L (3.5-5.1); Sodium Level 123 mmol/L (136-145)
[2021-07-18 15:06] VITALS: BP 169/87; BP 174/92; BP 176/83; PULSE 67; PULSE 72; PULSE 78
== END 2021-07-18 15:22 | disposition home or self-care (01) ==
PROVIDERS: Emergency Provider Emergency Medicine; PCP Nurse Practitioner
DX: H93.13 Tinnitus, bilateral (principal); E87.1 Hypo-osmolality and hyponatremia; I10 Essential (primary) hypertension; K21.9 Gastro-esophageal reflux disease without esophagitis; Z85.89 Personal history of malignant neoplasm of other organs and systems; Z79.899 Other long term (current) drug therapy; F17.200 Nicotine dependence, unspecified, uncomplicated
CPT/HCPCS: 70496; 70498; 80048; 85025; 99284; Q9967; A4216

== ENCOUNTER 2021-08-23 06:50 | Outpatient (RCR) | payer OTHER, SELFPAY ==
[2019-06-25 16:16] VITALS: BMI 22.6
[2021-08-23 08:11] VITALS: BP 152/88; PULSE 95; TEMP 36.6; BMI 22.3
--- NOTE | 2021-08-23 09:04 | HBO.CON.PC_ITS ---
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: PLAN: HBO preauthorization with insurance [employer] for 90 minutes without air breaks 1 treatment per day for 30 days (2) Delayed surgical wound healing: QUALIFIERS: Encounter type: subsequent encounter Qualified Code(s): T81.89XD - Other complications of procedures, not elsewhere classified, subsequent encounter (3) History of head and neck cancer: History of Present Illness Date of Service: 08/23/21 Chief Complaint: soft tissue necrosis of theL jaw History of Wound: Hx of Throat cancer back in 2018 received chemo and then radiation treatments and finished it up but by the end of 2018.Recently was seen by oral surgery and had 8 teeth extracted 2 teeth have still not healed. Referred here from dental hoping that the HBO might help heal the last 2 teeth. Progress of Wound: Today patient is here for consult for HBO. Patient was oriented and examined. Patient is agreeable to having HBO treatments done a chest x-ray will be obtained today he is scheduled already for a CT of the head neck with his oral surgeon. Lab works have been done in June of this last year so we will not need to repeat labs. We will obtain preauthorization from his insurance company for hyperbaric oxygen protocol at [address] for 90 minutes without air breaks 1 treatment per day for 30 days [facility] Medical History Acid reflux Anemia Cancer related pain Difficulty swallowing Epigastric pain Hypertension malignant squamous cell carcinoma lt neck Mass of left side of neck peg tube removed Home Medications Levothyroxine 75 mg PO DAILY 08/25/20 [History Last Taken Unknown] pentoxifylline 400 mg tablet,extended release 400 mg PO TID #90 tab 05/17/21 [Rx Last Taken Unknown] vitamin E mixed 1,000 unit capsule 1,000 unit PO DAILY #30 cap 05/17/21 [Rx Last Taken Unknown] Allergy/AdvReac Type Severity Reaction Status Date / Time No Known Allergies Allergy Verified 08/11/21 10:38 Family History Mother CVA (cerebral vascular accident) Surgical History history of biopsy neck History of removal of Port-a-Cath S/P percutaneous endoscopic gastrostomy (PEG) tube placement (~01/26/19) s/p port placement (~01/26/19) Social History Smoking Status: Current every day smoker tobacco type: cigarettes Tobacco: How many years used: 30 second hand exposure: Yes alcohol intake: current alcohol intake frequency: a few times a week substance use type: does not use seatbelt use: sometimes do you feel safe at home: Yes ROS Constitutional Constitutional: Reports systems reviewed and no addt'l complaints, except as documented; Denies anorexia, fatigue, fever(s) or weight loss Eyes Eyes: Reports systems reviewed and no addt'l complaints, except as documented; Denies change in vision ENT HEENT: Reports systems reviewed and no addt'l complaints, except as documented, dry mouth, hearing loss and hoarseness; Denies mouth lesions Cardiovascular Cardiovascular: Reports systems reviewed and no addt'l complaints, except as documented; Denies chest pain with activity or edema Respiratory/Chest Respiratory/Chest: Reports systems reviewed and no addt'l complaints, except as documented; Denies cough or dyspnea on exertion Gastrointestinal Gastrointestinal: Reports systems reviewed and no addt'l complaints, except as documented; Denies change in bowel habits, hematochezia or melena Genitourinary Genitourinary: Reports systems reviewed and no addt'l complaints, except as documented; Denies hematuria Musculoskeletal Musculoskeletal: Reports systems reviewed and no addt'l complaints, except as documented and other; Denies arthralgias Integumentary Integumentary: Reports systems reviewed and no addt'l complaints, except as documented; Denies rash Neurologic Neurologic: Reports systems reviewed and no addt'l complaints, except as documented; Denies headache(s) Psychiatric Psychiatric: Reports systems reviewed and no addt'l complaints, except as documented Endocrine Endocrinology: Reports systems reviewed and no addt'l complaints, except as documented Hematologic/Lymphatic Hematologic/Lymphatic: Reports systems reviewed and no addt'l complaints, except as documented; Denies easy bleeding, easy bruising or lymphadenopathy Allergic/Immunologic Allergic/Immunologic: Reports systems reviewed and no addt'l complaints, except as documented Physical Exam Physical Exam Const oriented x3 General Appearance: cooperative Exam Limitations: no limitations HEENT normocephalic Head and Scalp: normal to inspection Face and Sinus: normal facial exam Nose: external nose normal General Ear: hearing grossly impaired External Ear: external ears normal Mouth: oral and palatal mucosa normal Eyes PERRL General Eye: normal appearance of both eyes Neck full ROM General: normal visual inspection Resp normal respiratory effort Effort and Inspection: able to speak in complete sentences Auscultation: clear to auscultation bilaterally Cardio regular rate and regular rhythm Palpation: normal PMI Rate: regular rate Rhythm: regular rhythm GI Auscultation: normoactive bowel sounds Palpation: soft and no hepatosplenomegaly external exam normal Back/Spine Cervical Spine: cervical ROM normal Thoracic Spine / Upper Back: normal to inspection Lumbar Spine / Lower Back: normal to inspection Extremity normal to inspection General Extremity: normal exam except as noted Skin no rashes or lesions noted Neuro oriented x3 Psych Appearance: grossly normal Speech: normal speech Thought Content: normal thought content Judgement: judgement good Nursing Assessment and Debridement Post-Debridement Measurements and Additional Note: Post-Debridement Measurements/Treatment - Nurse 1 - General Ulcer Assessment Start: 08/23/21 08:10 Freq: Status: Active Protocol: [email or web address].[email or web address] Activity Type Activity Date Activity User E-Sign Co-Sign Detail Recorded Client Recorded Date Recorded By Document 08/23/21 08:11 PALMIRA [id number] 08/23/21 08:25 PALMIRA 08/23/21 08:11 - Today's Visit Information Type of service HBO Consult Arrival Mode Ambulatory Transfer Assist (Other) daughter Patient Identification Verified (Name & Yes ) Patient Requires Transmission-Based No Precautions Safety Precautions NA Height and Weight Height 5 ft 4 in Weight 130 lb Weight in Pounds 130.0 lbs Body Mass Index (BMI) 22.3 BMI Classification Normal BSA - Gabe 1.63 Vital Signs Temperature (97.8 F-99.1 F) 98 F Temperature Source Temporal Pulse Rate (60-100 beats/min) 95 Pulse Location Monitor Blood Pressure (90/60-120/80 mm Hg) 152/88 H Blood Pressure Mean (mm Hg) 109 Source Manual
--- NOTE | 2021-08-23 16:15 | RAD_ITS ---
STUDY: X-RAY CHEST REASON FOR EXAM: Male, 61 years old. HYPERBARIC O2 TX TECHNIQUE: PA and lateral views of the chest. COMPARISON: Comparison is made with prior study dated 01/26/2019. FINDINGS: There is hyperinflation of the lungs consistent with chronic obstructive lung disease (COPD). There is no demonstrated pleural abnormality. Normal size heart. Normal mediastinum and michelle. There is prominence of the pulmonary hilar arteries without peripheral pulmonary vascular congestion, suggesting pulmonary hypertension. Normal visualized aortic arch and descending thoracic aorta. There are diffuse degenerative changes of the visualized thoracic spine. Levoscoliosis. Normal visualized ribs, clavicles, and shoulders. There is no demonstrated abnormality of the visualized soft tissue structures of the upper abdomen. RAD/Chest PA and Lateral IMPRESSION: Hyperinflation. Electronically Signed: Bib Reeves MD at 15:33 EST , Service support ,
== END 2021-09-22 23:59 ==
LOC: WC 06:50
PROVIDERS: PCP Nurse Practitioner; Visit Provider Nurse Practitioner
DX: T81.89XD Other complications of procedures, not elsewhere classified, subsequent encounter (principal); W88.8XXA Exposure to other ionizing radiation, initial encounter; Y93.9 Activity, unspecified; Y92.9 Unspecified place or not applicable; Y99.9 Unspecified external cause status; I10 Essential (primary) hypertension; K21.9 Gastro-esophageal reflux disease without esophagitis; F17.210 Nicotine dependence, cigarettes, uncomplicated; Z79.890 Hormone replacement therapy; Z79.899 Other long term (current) drug therapy; Z85.819 Personal history 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, oral cavity, and pharynx; Z92.21 Personal history of antineoplastic chemotherapy; Z92.3 Personal history of irradiation
CPT/HCPCS: 71046; 99203; G0463

== ENCOUNTER → 2021-08-23 16:10 | Outpatient (CLI) | payer OTHER, SELFPAY ==
[2019-06-25 16:16] VITALS: BMI 22.6
--- NOTE | 2021-08-23 16:15 | CT_ITS ---
STUDY: CT SOFT TISSUE NECK WITH CONTRAST REASON FOR EXAM: Male, 61 years old. 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 High resolution transaxial imaging was performed following intravenous administration of IV 100mL Isovue-370. Sagittal and coronal images were reconstructed. Individualized dose optimization techniques were used for this CT. COMPARISON: Comparison is made with prior study 12/17/2018. FINDINGS: There is evidence of a bony destruction involving the mid anterior aspect of the. The transverse dimension of the destruction measures 2.1 cm. I suspect a 2.6 cm x 3.7 cm soft tissue mass overlying the anterior aspect of the midportion of the mandible. A neoplastic process should be. Normal bilateral parotid glands. Normal bilateral studio camera operator spaces. Normal bilateral parapharyngeal spaces. Normal bilateral carotid spaces. Normal bilateral sublingual and submandibular glands and spaces. Normal visualized nasopharynx. Normal retropharyngeal space. Normal perivertebral space. Normal visualized bilateral faucial tonsils. The visualized tongue, tongue base and oropharynx are normal. The visualized cervical lymph nodes (levels I-) are within normal size limits, and maintain normal morphology. There is no demonstrated solid or cystic mass lesion. There is no abnormal contrast enhancement. Normal epiglottis, bilateral vallecula and hypopharynx. The pre-epiglottic and paraglottic adipose spaces are normal. Normal visualized bilateral piriform sinuses, aryepiglottic folds, vocal cords, and arytenoid-cricoid articulations. Normal subglottic trachea. Normal bilateral lobes of the thyroid gland. Normal visualized pulmonary apices. Normal visualized paranasal sinuses. There is multilevel degenerative changes of the cervical spine. CT/Soft Tissue Neck WITH Contrast IMPRESSION: Destruction of the mid anterior aspect of the mandible with overlying soft tissue mass. Electronically Signed: Bib Reeves MD at 15:43 EST , Service support ,
== END ==
PROVIDERS: PCP Nurse Practitioner; Referring Provider Student in an Organized Health Care Education/Training Program; Visit Provider Student in an Organized Health Care Education/Training Program
DX: L59.8 Other specified disorders of the skin and subcutaneous tissue related to radiation (principal); Y84.2 Radiological procedure and radiotherapy as the cause of abnormal reaction of the patient, or of later complication, without mention of misadventure at the time of the procedure
CPT/HCPCS: 70491; Q9967

== ENCOUNTER → 2021-11-20 | Outpatient (REF) | payer SELFPAY ==
[2019-06-25 16:16] VITALS: BMI 22.6
[2021-11-20 07:59] LABS: Absolute Lymphocyte Count 0.53 X10^3/uL (0.83-4.51); Absolute Neutrophil Count 6.8 X10^3/uL (2.0-7.7); Basophil# 0.02 X10^3/uL; Basophil% 0.2 % (0-1); Eosinophil# 0.07 X10^3/uL; Eosinophils% 0.8 % (0-5); Hematocrit 28.7 % (40-54); Lymphocyte # 0.53 X10^3/ul (0.83-4.51); Lymphocyte % 6.3 % (19-41); Mean Corp Hgb Conc 34.8 g/dL (32-36); Mean Corpuscular Hgb 32.6 pg (27.0-32.0); Mean Corpuscular Volume 93.5 fL (80-94); Mean Platelet Vol. 9.3 fl (6.2-12.0); Monocyte# 0.87 X10^3/uL; Monocyte% 10.4 % (0-10); NRBC Flagged by Analyzer 0 % (0-5); Neutrophil # 6.79 X10^3/uL (2.7-7.7); Neutrophil % 81.2 % (47-70); POSITIVE DIFFERENTIAL YES; Platelet Count 614 K/mm3 (150-450); RBC Distribution Width CV 14.2 % (11.6-14.6); RBC Distribution Width SD 48.7 fl (35.1-43.9); Red Blood Count 3.07 M/mm3 (4.6-6.2); White Blood Count 8.4 K/mm3 (4.4-11.0)
[2021-11-20 08:01] LABS: Differential Indicated SCAN CRITERIA MET
[2021-11-20 08:25] LABS: Anion Gap 7 (5-15); BUN 13 mg/dL (7-18); BUN/Creat Ratio 33.2 RATIO (10-20); Calcium,Total 8.2 mg/dL (8.5-10.1); Chloride 95 mmol/L (98-107); Creatinine, Serum 0.39 mg/dL (0.70-1.30); EST Glomerular Filtration Rate 240 mL/min (>60); Est Glom Filt Rate - Afr Amer 290 mL/min (>60); Glucose 151 mg/dL (74-106); Potassium 4.3 mmol/L (3.5-5.1); Prealbumin 20.9 mg/dL (20.0-40.0); Sodium Level 130 mmol/L (136-145)
[2021-11-20 08:30] LABS: Vitamin B12 486 pg/mL (211-911)
== END | disposition home or self-care (01) ==
LOC: OLS.SW300 04:00
PROVIDERS: PCP Nurse Practitioner; Referring Provider Internal Medicine; Visit Provider Internal Medicine
DX: I10 Essential (primary) hypertension (principal); E46 Unspecified protein-calorie malnutrition; Z98.890 Other specified postprocedural states
CPT/HCPCS: 36415; 80048; 82607; 84134; 84443; 85025

== ENCOUNTER 2021-12-05 01:25 | Emergency (ER) | payer OTHER, SELFPAY ==
--- NOTE | 2021-12-05 05:06 | EDS_ITS ---
HPI Narrative Narrative: Patient is a 61-year-old male who has a history of jaw/throat cancer. He was recently at the [facility] for surgery of this jaw/throat cancer and had to have a tracheostomy placed. He was seen at their facility today and had the tracheostomy removed. He states when he starts to lie down to try and sleep he feels increased shortness of breath and secondary to this comes in for evaluation ROS ROS ED Constitutional Constitutional ED: Denies chills or fever(s) ENT ENT ED: Reports sore throat Cardiovascular Cardiovascular: Denies chest pain, palpitations or racing heartbeat Respiratory/Chest Respiratory/Chest: Reports cough and dyspnea Gastrointestinal Gastrointestinal: Denies abdominal pain, diarrhea, nausea or vomiting Genitourinary Genitourinary ED: Denies dysuria Musculoskeletal Musculoskeletal: Denies myalgias Integumentary Denies rash Neurologic Neurologic: Denies headache(s) Hematologic/Lymphatic Hematologic/Lymphatic: Denies easy bleeding or easy bruising EXAM Physical Exam Const Positive cachectic General Appearance ED: cachectic Nutritional Appearance: cachectic HEENT HEENT Narrative: Patient has swelling in the submental region of the jaw consistent with recent surgery. There is swelling into the submental region of the oral mucosa as well causing mild tongue elevation but no true airway edema or compromise. Patient does state that these changes have been chronic for at least 4 weeks following his diagnosis and recent surgery. Patient states he feels like the swelling has actually gone down in the last few days as well Eyes PERRL and EOMs intact bilaterally Neck no JVD Neck Narrative: Soft tissue changes to the submental region of the jaw as documented above. There is a tracheostomy stoma present in the midline lower neck without active bleeding or surrounding soft tissue changes to suggest infection Resp normal respiratory effort Resp Narrative: Patient's breath sounds are slight diminished throughout with diffuse expiratory wheeze consistent with history of smoking but no signs of respiratory distress Cardio regular rate and regular rhythm Extremity normal to inspection Extremity Narrative: No asymmetric edema no pitting edema negative Homans' sign bilaterally Neuro oriented x3 and CN's II-XII intact bilaterally Sensorium / Orientation: alert Motor Exam: strength 5/5 throughout Psych Mood & Affect: anxious Skin no rashes or lesions noted MDM MDM MDM Narrative Medical decision making narrative: Patient presented to the ER in no acute respiratory distress. His lung sounds had diminished volume and wheezes present but he does have a longstanding history of smoking which is consistent with this. He also has swelling to the lower jaw/submental region but patient states this has been chronic for least 4 weeks and he feels like the swelling has actually diminished in the last few days. The patient was placed at 45 degrees and then down to approximately 130 degrees. With this he reported feeling short ness of breath initially but he was able to calm down and breathe through this and his pulse ox remained 98 to 100% indicating no true orthopnea. We discussed that his sensation of shortness of breath is related to airway compression from his persistent swelling. However there is no true obstruction there is just mild compression as we have documented he does not desat while lying down. I discussed with patient chest x-ray and basic labs but he states he is just had all of these done with his recent stay at the [facility] and therefore does not want them obtained again at this time. Therefore he will be instructed to sleep sitting upright or at a maximum degree of 45 degrees to help prevent any type of compression syndrome but at this time as he does not have any true hypoxia or respiratory distress or signs of overt infection he is safe for discharge Discharge Plan Triage ED Provider: Avinash Rod Dx/Rx/DC Orders Clinical Impression: Dyspnea Primary Care Provider: Kya Anderson NP Referrals: Kya Anderson [facility], [facility] [Primary Care Provider] - Disposition Disposition: Home, Self Care
== END 2021-12-05 02:23 | disposition home or self-care (01) ==
PROVIDERS: Emergency Provider Emergency Medicine; PCP Nurse Practitioner; Visit Provider Emergency Medicine
DX: R06.00 Dyspnea, unspecified (principal); Z98.890 Other specified postprocedural states; Z85.818 Personal history of malignant neoplasm of other sites of lip, oral cavity, and pharynx; Z87.891 Personal history of nicotine dependence
CPT/HCPCS: 94760; 99283

== ENCOUNTER 2021-12-10 16:39 | Emergency (ER) | payer OTHER, SELFPAY ==
[2021-12-07 14:14] VITALS: BMI 22.6
[2021-12-10 16:40] VITALS: BP 144/70; PULSE 60; RESP 18; TEMP 36.6; O2SAT 99; BMI 19.7
--- NOTE | 2021-12-10 18:09 | EDS_ITS ---
HPI History of Present Illness Chief Complaint: Shortness of Breath Narrative Narrative: as well as history of tracheostomy presenting [id number] male with history of head and neck cancer tracheostomy care. He states that his tracheostomy was removed last week and had to be replaced He states that he by the end of the week. He requests suction because he states he cannot clear it. He does not have a suction device at home. He also states that they did not give him any tracheostomy care tools. Patient states that he was given albuterol inhalers but he ran out of these. He is unable to contact anybody on Saturday. [facility] Medical History Acid reflux Anemia Cancer related pain Difficulty swallowing Epigastric pain Hypertension malignant squamous cell carcinoma lt neck Mass of left side of neck peg tube removed Home Medications Levothyroxine 75 mg PO DAILY 08/25/20 [History Last Taken Unknown] pentoxifylline 400 mg tablet,extended release 400 mg PO TID #90 tab 05/17/21 [Rx Last Taken Unknown] vitamin E mixed 1,000 unit capsule 1,000 unit PO DAILY #30 cap 05/17/21 [Rx Last Taken Unknown] albuterol sulfate 1.25 mg INHALATION Q4H PRN #90 ml 12/10/21 [Rx Last Taken Unknown] Allergy/AdvReac Type Severity Reaction Status Date / Time No Known Allergies Allergy Verified 12/10/21 16:40 Family History Mother CVA (cerebral vascular accident) Surgical History history of biopsy neck History of removal of Port-a-Cath S/P percutaneous endoscopic gastrostomy (PEG) tube placement (~01/26/19) s/p port placement (~01/26/19) Social History Smoking Status: Current every day smoker tobacco type: cigarettes Tobacco: How many years used: 30 second hand exposure: Yes alcohol intake: current alcohol intake frequency: a few times a week substance use type: does not use seatbelt use: sometimes do you feel safe at home: Yes ROS ROS ED Constitutional Constitutional ED: Denies chills or fever(s) Eyes Eyes: Denies blurry vision ENT ENT ED: Denies rhinorrhea or sore throat Cardiovascular Cardiovascular: Denies chest pain or palpitations Respiratory/Chest Respiratory/Chest: Reports dyspnea; Denies cough or dyspnea on exertion Gastrointestinal Gastrointestinal: Denies abdominal pain or nausea Genitourinary Genitourinary ED: Denies dysuria or hematuria Musculoskeletal Musculoskeletal: Denies arthralgias or myalgias Integumentary Denies rash Neurologic Neurologic: Denies headache(s) EXAM Physical Exam Const Vital Signs: 12/10/21 16:40 12/10/21 17:19 Temperature 97.8 F Temperature Source Temporal Pulse Rate 60 Respiratory Rate 18 Respiratory Effort Normal Respiratory Depth Normal Respiratory Pattern Normal Blood Pressure 144/70 H Blood Pressure Mean 94 Pulse Ox 99 Oxygen Delivery Method Room Air Room Air Positive well nourished General Appearance ED: NAD; Negative for pallor HEENT Reports moist mucous membranes atraumatic Eyes PERRL and EOMs intact bilaterally Neck Neck Narrative: Tracheostomy in place. No surrounding induration or erythema. Tracheostomy patent. No stridor. Resp normal respiratory effort and clear to auscultation bilaterally Cardio regular rate and regular rhythm Neuro oriented x3 and CN's II-XII intact bilaterally Sensorium / Orientation: alert Psych mental status grossly normal Skin General Skin Exam: Negative for jaundice or pallor MDM MDM MDM Narrative Medical decision making narrative: Patient presenting with request to have his tracheostomy suctioned. This was performed. Respiratory does state that they did not get a ton out of his tracheostomy site but he feels improvement. I recommended to him that he call the care team which provided him with the tracheostomy so he can get some home care kits for this. Requested refills of his home albuterol nebulized. This was provided for him. I do not believe he needs any further work-up or imaging. He was given return precautions. Impression: 1. Tracheostomy care Discharge Plan Triage Chief Complaint: Shortness of Breath ED Provider: Aiden Pierre Dx/Rx/DC Orders Instructions: ED Tracheostomy Care Prescriptions: New albuterol sulfate 1.25 mg/3 mL solution for nebulization 1.25 mg inhalation Q4H PRN (Reason: bronchospasm) Qty: 90 RF: 0 No Action Levothyroxine 75 mg PO DAILY RF: 0 pentoxifylline 400 mg tablet extended release 400 mg PO TID Qty: 90 RF: 5 vitamin E mixed 1,000 unit capsule 1,000 unit PO DAILY Qty: 30 RF: 5 Primary Care Provider: Kya Anderson NP Referrals: Kya Anderson NP, DYE BOARDING MACHINE OPERATOR-C [Primary Care Provider] - Disposition Disposition: Home, Self Care
[2021-12-10 18:23] VITALS: PULSE 70; RESP 16; O2SAT 99
--- NOTE | 2021-12-13 12:06 | CM.ED ---
ER RNCM DC F/u Call: Seen in ED 12.10.21 for Tracheostomy Care- suctioning and needing albuterol refill. States has no Trach suctioning equipment at home. Attempted to call listed cell phone number on file and states not recognized. Looked at on file HPOA- Kya Zacarias but that name is not under contacts on Demographics so therefore this job specification writer did not seek out further contacts to reach patient at this time. Luis Car RNCM
== END 2021-12-10 18:26 | disposition home or self-care (01) ==
PROVIDERS: Emergency Provider Student in an Organized Health Care Education/Training Program; PCP Nurse Practitioner; Visit Provider Student in an Organized Health Care Education/Training Program
DX: Z43.0 Encounter for attention to tracheostomy (principal); C76.0 Malignant neoplasm of head, face and neck; R06.02 Shortness of breath; I10 Essential (primary) hypertension; F17.210 Nicotine dependence, cigarettes, uncomplicated; K21.9 Gastro-esophageal reflux disease without esophagitis; Z79.899 Other long term (current) drug therapy
CPT/HCPCS: 31720; 99282

== ENCOUNTER 2021-12-11 11:02 | Outpatient (RCR) | payer OTHER, SELFPAY ==
[2021-12-07 14:14] VITALS: BMI 22.6
== END 2021-12-21 23:59 ==
LOC: NS 11:02
PROVIDERS: PCP Nurse Practitioner; Referring Provider Student in an Organized Health Care Education/Training Program; Visit Provider Student in an Organized Health Care Education/Training Program
DX: Z71.3 Dietary counseling and surveillance (principal)
CPT/HCPCS: 97802

== ENCOUNTER 2021-12-15 10:52 | Emergency (ER) | payer OTHER, SELFPAY ==
[2021-12-07 14:14] VITALS: BMI 22.6
[2021-12-15 10:53] VITALS: BP 131/64; PULSE 73; RESP 17; TEMP 36.1; O2SAT 99; BMI 20.5
--- NOTE | 2021-12-15 12:00 | EDS_ITS ---
HPI History of Present Illness Chief Complaint: Wound Informant: patient Onset/Context/Timing Onset: Days Context: Gradual Onset Timing: Continuous Quality: Erythematous Location: Chin and anterior neck Narrative Narrative: Patient presents for possible infection of his chin wound. 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 Patient recently completed a course of Bactrim. Patient noted some swelling to his chin today. Patient saw his primary care physician for this. Patient was then referred to the emergency department for further evaluation. Patient denies any difficulty breathing or difficulty swallowing. Patient is unsure if his redness has gotten any worse. Patient denies any fevers or chills. [facility] Medical History Acid reflux Anemia Cancer related pain Difficulty swallowing Epigastric pain Hypertension malignant squamous cell carcinoma lt neck Mass of left side of neck peg tube removed Home Medications Levothyroxine 75 mg PO DAILY 08/25/20 [History Last Taken Unknown] pentoxifylline 400 mg tablet,extended release 400 mg PO TID #90 tab 05/17/21 [Rx Last Taken Unknown] vitamin E mixed 1,000 unit capsule 1,000 unit PO DAILY #30 cap 05/17/21 [Rx Last Taken Unknown] albuterol sulfate 1.25 mg INHALATION Q4H PRN #90 ml 12/10/21 [Rx Last Taken Unknown] hydrocodone-acetaminophen 1 tab PO Q6H PRN PRN 3 Days #10 tablet 12/15/21 [Rx Last Taken Unknown] sulfamethoxazole-trimethoprim 20 ml FEEDING TUBE BID 3 Days #120 ml 12/15/21 [Rx Last Taken Unknown] Allergy/AdvReac Type Severity Reaction Status Date / Time No Known Allergies Allergy Verified 12/15/21 10:53 Family History Mother CVA (cerebral vascular accident) Surgical History history of biopsy neck History of removal of Port-a-Cath S/P percutaneous endoscopic gastrostomy (PEG) tube placement (~01/26/19) s/p port placement (~01/26/19) Social History Smoking Status: Current every day smoker tobacco type: cigarettes Tobacco: How many years used: 30 second hand exposure: Yes alcohol intake: current alcohol intake frequency: a few times a week substance use type: does not use seatbelt use: sometimes do you feel safe at home: Yes ROS ROS ED Constitutional Constitutional ED: Denies chills or fever(s) Eyes Eyes: Denies blurry vision or change in vision ENT ENT ED: Denies rhinorrhea or sore throat Cardiovascular Cardiovascular: Denies chest pain or palpitations Respiratory/Chest Respiratory/Chest: Reports cough; Denies dyspnea Gastrointestinal Gastrointestinal: Denies nausea or vomiting Genitourinary Genitourinary ED: Denies dysuria or hematuria Musculoskeletal Musculoskeletal: Denies back pain or neck pain Integumentary Denies abscess or rash Neurologic Neurologic: Denies headache(s) or weakness Allergic/Immunologic Allergic/Immunologic ED: Denies mouth swelling or urticaria EXAM Physical Exam Const Vital Signs: 12/15/21 10:53 Temperature 96.9 F L Temperature Source Temporal Pulse Rate 73 Respiratory Rate 17 Blood Pressure 131/64 H Blood Pressure Mean 86 Pulse Ox 99 Oxygen Delivery Method Room Air Positive well nourished and well developed General Appearance ED: well developed and NAD HEENT Reports moist mucous membranes Eyes PERRL and EOMs intact bilaterally Neck supple and no JVD Resp normal respiratory effort and clear to auscultation bilaterally Cardio regular rate and regular rhythm GI non-tender Palpation: soft Neuro oriented x3, CN's II-XII intact bilaterally and no sensory deficits noted Sensorium / Orientation: alert Motor Exam: strength 5/5 throughout Psych mental status grossly normal Skin Skin Narrative: There is some edema and erythema over the chin, mandible, and anterior neck. There is no evidence of any abscess. Oral mucosa is pink and moist. Tracheostomy is in place. There is no discharge or drainage. MDM MDM MDM Narrative Medical decision making narrative: The patient's surgeon's office called in and requested that we take pictures of his neck and send them to them for evaluation. These were taken on my phone and emailed to the surgeons office. They did not feel the redness is much worse than it has been. They did recommend obtaining a CBC and if the white blood cell count was elevated that he may need IV antibiotics. This was ordered and white blood cell count was normal at 7.4. I discussed the results with Koki from Dr. Brooks's office. They felt that it would be beneficial to cover with antibiotics over the weekend until they can follow-up with him on Saturday. Patient was given an prescription for Bactrim for 3 days. Patient was also given a prescription for a short course of Roby. Patient was instructed to follow-up with Dr. Brooks in 3 days. Patient understood and was agreeable with the plan. All questions were answered. Lab Data Attestation: I reviewed the patient's lab results. Labs: Laboratory Results - last 24 hr 12/15/21 12:57 WBC 7.4 RBC 3.93 L Hgb 12.5 L Hct 35.7 L MCV 90.8 MCH 31.8 MCHC 35.0 RDW Std Deviation 45.6 H RDW Coeff of Jennifer 13.4 Plt Count 450 MPV 8.6 Immature Gran % (Auto) 0.500 Neut % (Auto) 75.7 H Lymph % (Auto) 11.1 L [place] % (Auto) 11.9 H Eos % (Auto) 0.4 Baso % (Auto) 0.4 Absolute Neuts (auto) 5.6 Absolute Lymphs (auto) 0.82 L Nucleated RBC % 0 Discharge Plan Triage Chief Complaint: Wound ED Provider: Rayray Perez Dx/Rx/DC Orders Clinical Impression: Postoperative cellulitis of surgical wound Instructions: ED Wound Infection after surgery Prescriptions: New sulfamethoxazole-trimethoprim 200-40 mg/5 mL suspension 20 ml feeding tube BID 3 Days Qty: 120 RF: 0 hydrocodone-acetaminophen [hydrocodone-acetaminophen] 1 TABLET tablet 1 tab PO Q6H PRN PRN (Reason: Pain) 3 Days Qty: 10 RF: 0 No Action Levothyroxine 75 mg PO DAILY RF: 0 albuterol sulfate 1.25 mg/3 mL solution for nebulization 1.25 mg inhalation Q4H PRN (Reason: bronchospasm) Qty: 90 RF: 0 pentoxifylline 400 mg tablet extended release 400 mg PO TID Qty: 90 RF: 5 vitamin E mixed 1,000 unit capsule 1,000 unit PO DAILY Qty: 30 RF: 5 Primary Care Provider: Kya Anderson NP Referrals: Rachel Brooks MD [NON-STAFF] - Kya Anderson NP, CUSTODIAL LABORER-C [Primary Care Provider] - Disposition Disposition: Home, Self Care
[2021-12-15 13:04] LABS: Absolute Lymphocyte Count 0.82 X10^3/uL (0.83-4.51); Absolute Neutrophil Count 5.6 X10^3/uL (2.0-7.7); Basophil# 0.03 X10^3/uL; Basophil% 0.4 % (0-1); Eosinophil# 0.03 X10^3/uL; Eosinophils% 0.4 % (0-5); Hematocrit 35.7 % (40-54); Hemoglobin 12.5 g/dL (13.0-16.5); Lymphocyte # 0.82 X10^3/ul (0.83-4.51); Lymphocyte % 11.1 % (19-41); Mean Corpuscular Hgb 31.8 pg (27.0-32.0); Mean Corpuscular Volume 90.8 fL (80-94); Mean Platelet Vol. 8.6 fl (6.2-12.0); Monocyte# 0.88 X10^3/uL; Monocyte% 11.9 % (0-10); NRBC Flagged by Analyzer 0 % (0-5); Neutrophil % 75.7 % (47-70); Platelet Count 450 K/mm3 (150-450); RBC Distribution Width CV 13.4 % (11.6-14.6); RBC Distribution Width SD 45.6 fl (35.1-43.9); Red Blood Count 3.93 M/mm3 (4.6-6.2); White Blood Count 7.4 K/mm3 (4.4-11.0)
== END 2021-12-15 13:57 | disposition home or self-care (01) ==
PROVIDERS: Emergency Provider Emergency Medicine; PCP Nurse Practitioner; Visit Provider Emergency Medicine
DX: T81.49XA Infection following a procedure, other surgical site, initial encounter (principal); Z93.0 Tracheostomy status; C09.9 Malignant neoplasm of tonsil, unspecified; C14.0 Malignant neoplasm of pharynx, unspecified; I10 Essential (primary) hypertension; F17.210 Nicotine dependence, cigarettes, uncomplicated; K21.9 Gastro-esophageal reflux disease without esophagitis; Z79.899 Other long term (current) drug therapy
CPT/HCPCS: 85025; 99283; A4216

== ENCOUNTER 2021-12-18 09:43 | Outpatient (CLI) | payer OTHER, SELFPAY ==
[2021-12-07 14:14] VITALS: BMI 22.6
--- NOTE | 2021-12-18 09:45 | VDLE_ITS ---
Reason For Study: Swelling Procedure LEFT This is a venous duplex using B-mode, color GSV is normal. flow and spectral Doppler. CFV is compressible, spontaneous, phasic, Exam performed in department. competent, and demonstrates normal A preliminary report was called and/or faxed augmentation. to Tatiana. FV is compressible, spontaneous, phasic, competent and demonstrates normal augmentation. POP V is compressible, spontaneous, phasic, competent and demonstrates normal augmentation. T/P Trunk is compressible. PTV is compressible. LT PerV is compressible. VL/Venous Duplex US, Unilateral Interpretation Summary There is no evidence of left lower extremity deep vein thrombosis. Left great s aphenous vein appears patent and compressible segmentally. Ordering Physician: Quincy Simpson Referring Physician: Kya Anderson Performed By: Janette Gaffney RVT
== END 2021-12-18 23:59 | disposition home or self-care (01) ==
LOC: CVS 09:44
PROVIDERS: PCP Nurse Practitioner; Referring Provider Internal Medicine Hematology & Oncology; Visit Provider Internal Medicine Hematology & Oncology
DX: R60.0 Localized edema (principal)
CPT/HCPCS: 93971

== ENCOUNTER 2022-01-08 09:21 | Outpatient (CLI) | payer OTHER, SELFPAY ==
[2021-12-07 14:14] VITALS: BMI 22.6
--- NOTE | 2022-01-08 17:03 | SP.MBSS_ITS ---
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 Medical History: The pt is a 61-year-old male diagnosed with clinical stage NOREEN (cTx cN2b M0) p16 negative SCC of unknown primary with left neck adenopathy in level 2-[address] neck and chest (12/17/2018), ultrasound-guided FNA of the left neck mass (12/22/2018), PET scan (01/05/2019), triple endoscopy with targeted left tonsillectomy (01/30/2019). From 02/10/2019 ? 03/25/2019 he received definitive chemoradiation therapy consisting of 6996 cGy in 33 fractions with concurrent high dose cisplatin. 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 11/07/2021: Patient underwent direct laryngoscopy, flexible bronchoscopy, flexible esophagoscopy, PEG tube placement, tracheostomy, composite resection of oral cavity, excision of skin and soft tissue measuring 8 x 9 cm, segmental mandibulectomy, right selective neck dissection of levels 1 through 4 and left neck exploration for vessels. Reconstruction was thigh free flap and had complex neck closure with split thickness skin graft. Trach and PEG tube placed. 11/09/2021. Postoperative course was complicated by arterial clotting and taken back to the OR for arterial release, flap checks were stable following the takeback. 12/05/2021: Trach re-inserted due to difficulty breathing when lying flat. He is currently in his third week of concurrent chemoradiation therapy. He is primarily consuming thin liquids and soft solids or pureed textures at this time. Current Diet Ordered: Soft solids / Thin liquids Dentition: Edentulous Mental Status: WNL Respiratory Status: Oxygenating on Room Air - Trach with PMSV placed - Penetration-Aspiration Scale Penetration-Aspiration Scale: OBJECTIVE ASSESSMENT OF SWALLOW FUNCTION (QUANTITATIVE ? PER TRIAL): PENETRATION / ASPIRATION SCALE (SENIOR): 1 = does not enter airway 2 = enters airway/above vocal folds/ejected 3 = enters airway/above vocal folds/not ejected 4 = enters airway/contacts vocal folds/ejected 5 = enters airway/contacts vocal folds/not ejected 6 = enters airway/below vocal folds/ejected 7 = enters airway/below vocal folds/not ejected despite effort 8 = enters airway/below vocal folds/no effort VIDEOFLOROSCOPIC SCALE SCORE (SENIOR): Grade I = aspiration of material that has penetrated into the laryngeal vestibule, intact cough reflex Grade II = aspiration < 10 % of the bolus, intact cough reflex Grade III = aspiration of < 10 % of the bolus, reduced cough reflex or aspiration of > 10 % of the bolus, intact cough reflex Grade IV = aspiration of > 10 % of the bolus, reduced cough reflex - Penetration-Aspiration Scale Score Thin Liquid via teaspoon Result: 1= does not enter airway Thin Liquid via teaspoon Trial 2 Result: 1= does not enter airway Thin Liquid via small single sip from cup Result: 1= does not enter airway Thin Liquid via sequential sips from cup Result: 3= enters airways/above vocal folds/not ejected [place] Thick Liquid via small single sip from cup Result: 1= does not enter airway Honey Thick Liquid via small single sip from cup Result: 1= does not enter airway Pudding Result: 1= does not enter airway Thin Liquid via single sip from straw Result: 1= does not enter airway Thin Liquid via small single sip from cup Trial 2 Result: 3= enters airways/above vocal folds/not ejected - Oral Phase Labial Seal: Escape progressing to mid-chin Tongue Control During Bolus Hold: Escape to lateral buccal cavity/floor of mouth Bolus Transport/Lingual Motion: Brisk tongue motion Oral Residue: Residue collection on oral structures - Pharyngeal Phase Initiation of Pharyngeal Swallow: Bolus head in pyriforms - Sequential sips Soft Palate Elevation: No bolus between soft palate and pharyngeal wall Laryngeal Elevation: Partial superior movement thyroid cart/partial apprx aryt- epig petiole Anterior Hyoid Excursion: No anterior movement - Little to no anterior movement Epiglottic Movement: Partial inversion Laryngeal Vestibule Closure at Height of Swallow: Incomplete; narrow column of air/contrast in laryngeal vestibule Pharyngeal Stripping Wave: Present - diminished Pharyngoesophageal Segment Opening: Parital distension and partial duration; parital obstruction of flow Tongue Base Retraction: Narrow column of contrast between tongue base & post. pharyngeal wall Pharyngeal Residue: Collection of residue within or on pharyngeal structures - Esophageal Phase Esophageal Clearance: Esophageal retention w/ retrograde flow below pharyngoesophageal seg. - Treatment Strategies Effects of treatment strategies attemped:: Decreased rate = Effective. - Diagnosis/Impression Diagnosis: Moderate oropharyngeal phase dysphagia (R13.12) Impression: Pt with severe mandibular edema. The oral phase is marked by decreased bolus control with loss of most boluses to FOM. Sequential sips resulted in premature posterior loss of bolus to the pyriforms. Did not test mastication as the patient politely declined trial of cookie at this time due to difficulty consuming solid textures at this time. The pharyngeal phase of the swallow is marked by decreased airway closure during the swallow and mild-moderate pharyngeal residues. He has severely decreased anterior hyoid excursion, likely due to fibrosis of anterior neck from hx of radiation treatment and severe mandibular edema. He demonstrated decreased UES opening and required multiple swallows to clear pharyngeal residue. He demonstrated laryngeal penetration of thin liquids via single and sequential cup without full ejection from the laryngeal vestibule. Cough and re-swallow was somewhat effective but did not fully clear the laryngeal vestibule of contrast. No aspiration observed during the study. - Recommendations Diet: Mechanical Soft Textures - Minced and moist textures (IDDSI Level 5), Thin Liquids Comment: Consider intermittent use of cough and reswallow, especially if a wet vocal quality is observed. Compensatory Strategies: Small Bites, Small Sips, Slow Rate, Multiple Swallows, Sitting upright, Remain sitting upright for 30 minutes after PO intake Recommend Repeat Modified Barium Swallow: Yes Comment: 3 months after completion of radiation Need for Skilled Speech Therapy Services: Yes Comment: Will recommend the patient for continued outpatient dysphagia therapy to address deficits in oropharyngeal swallow function. Would consider the patient for oropharyngeal strengthening to improve tongue base retraction, laryngeal elevation, hyoid excursion, and duration of UES opening. The patient would benefit from thorough education regarding diet recommendations and recommended compensatory strategies. Education Completed: 1. Described result of evaluation. - Status Active ST Patient: Active - Contact Information [facility] Speech Therapy:: Latosha Boyer M.A. [facility] Speech-Language Pathologist [facility] [id number] [place] [address] [email or web address] [phone] 01/08/22 17:21
== END 2022-01-08 23:59 | disposition home or self-care (01) ==
LOC: RAD 09:25
PROVIDERS: PCP Nurse Practitioner; Referring Provider Student in an Organized Health Care Education/Training Program; Visit Provider Student in an Organized Health Care Education/Training Program
DX: C41.1 Malignant neoplasm of mandible (principal)
CPT/HCPCS: 74230; 92611

== ENCOUNTER 2022-01-22 19:53 | Inpatient (IN) | payer OTHER, SELFPAY ==
[2021-12-07 14:14] VITALS: BMI 22.6
[2022-01-22] VITALS (7 sets, daily range): BP systolic 120–139; BP diastolic 64–94; PULSE 73–93; RESP 17–22; TEMP 36.6–36.8; O2SAT 97–100; BMI 19.8; BMI 20.1
--- NOTE | 2022-01-22 20:19 | EKG12_ITS ---
Test Reason : DYSRHYTHMIA Blood Pressure : / mmHG Vent. Rate : 070 BPM Atrial Rate : 070 BPM P-R Int : 170 ms QRS Dur : 090 ms QT Int : 394 ms P-R-T Axes : 075 072 052 degrees QTc Int : 425 ms Normal sinus rhythm Normal ECG Confirmed by BRENT QUESADA, RODNEY ([id number]), features editor MANNY FOOTE ([id number]) on 01/24/2022 9:43:49 AM Referred By: SAAD Confirmed By:RODNEY KENNEDY MD
[2022-01-22] MEDS: Albuterol 2.5 MG/3 ML VIAL.NEB. INHALATION ×3 (20:34→21:00)
[2022-01-22] MEDS: Ipratropium/Albuterol Sulfate 3 ML AMPUL.NEB INHALATION (20:34)
[2022-01-22] MEDS: MethylPREDNISolone 125 MG/2 ML Vial IV (20:37)
--- NOTE | 2022-01-22 20:38 | ED.VIS.DYS ---
HPI History of Present Illness Chief Complaint: Shortness of Breath Informant: patient Onset/Context/Timing Onset: Days (Approximately 2 days ago) Context: gradual Timing: Continuous and Waxes and wanes Quality: Positive for Dyspnea on exertion and Wheezing (Occasionally); Negative for Orthopnea and PND Current Severity: Mild Maximum Severity: Moderate Worsened by: Exertion and Coughing; Not Worsened By Lying flat Relieved by: Nothing Associated Symptoms cough, sore throat and white sputum; Negative for post nasal drip, ear pain, fever, subjective, chills, sweats or other Chest Pain: Positive for None Narrative Narrative: Patient is a 61-year-old male diagnosed with tongue throat cancer undergoing chemotherapy. He is status post tracheostomy. [facility] Medical History Acid reflux Anemia Cancer related pain Cellulitis Difficulty swallowing Encounter for chemotherapy management Epigastric pain Hypertension malignant squamous cell carcinoma lt neck Mass of left side of neck peg tube removed Sleep disturbance Home Medications Levothyroxine 75 mg PO DAILY 08/25/20 [History Last Taken Unknown] pentoxifylline 400 mg tablet,extended release 400 mg PO TID #90 tab 05/17/21 [Rx Last Taken Unknown] vitamin E mixed 1,000 unit capsule 1,000 unit PO DAILY #30 cap 05/17/21 [Rx Last Taken Unknown] albuterol sulfate 1.25 mg INHALATION Q4H PRN #90 ml 12/10/21 [Rx Last Taken Unknown] nystatin 500,000 unit PO 4X/DAY 7 Days #112 ml 01/03/22 [Rx Last Taken Unknown] oxycodone 5 mg capsule 5 mg PO BID PRN 14 Days #30 cap 01/10/22 [Rx Last Taken Unknown] Allergy/AdvReac Type Severity Reaction Status Date / Time No Known Allergies Allergy Verified 01/22/22 19:55 Family History Mother CVA (cerebral vascular accident) Surgical History history of biopsy neck History of removal of Port-a-Cath Hx of tonsillectomy S/P percutaneous endoscopic gastrostomy (PEG) tube placement (~01/26/19) s/p port placement (~01/26/19) Social History Smoking Status: Former smoker quit date: 09/16/21 Tobacco: How many years used: 30 how long ago did patient quit smokin-4 months ago second hand exposure: Yes alcohol intake: former details: August 2021 substance use type: does not use seatbelt use: sometimes do you feel safe at home: Yes ROS ROS ED Constitutional Constitutional ED: Denies chills, fever(s), sweats or weight loss Eyes Eyes: Denies blurry vision, change in vision or diplopia ENT ENT ED: Reports sore throat; Denies ear pain or rhinorrhea Cardiovascular Cardiovascular: Denies chest pain, orthopnea, palpitations, paroxysmal nocturnal dyspnea or racing heartbeat Respiratory/Chest Respiratory/Chest: Reports cough, dyspnea, dyspnea on exertion and sputum; Denies orthopnea or paroxysmal nocturnal dyspnea Gastrointestinal Gastrointestinal: Denies abdominal pain, diarrhea, melena, nausea or vomiting Genitourinary Genitourinary ED: Denies dysuria, hematuria or urinary frequency Musculoskeletal Musculoskeletal: Denies arthralgias, back pain, myalgias or neck pain Integumentary Denies abscess, Abrasions or rash Neurologic Neurologic: Denies headache(s), paresthesias or weakness Endocrine Endocrinology: Denies polydipsia, polyphagia or polyuria Hematologic/Lymphatic Hematologic/Lymphatic: Denies easy bleeding or easy bruising Allergic/Immunologic Allergic/Immunologic ED: Denies mouth swelling, tongue swelling or urticaria EXAM Physical Exam Const Vital Signs: 01/22/22 19:54 01/22/22 20:13 01/22/22 20:34 Temperature 97.9 F Temperature Source Temporal Pulse Rate 73 83 Respiratory Rate 18 22 H Respiratory Effort Labored Normal Short of Breath Respiratory Depth Normal Shallow Respiratory Pattern Normal Tachypnea Blood Pressure 139/68 H Blood Pressure Mean 91 Pulse Ox 100 97 Oxygen Delivery Method Room Air Room Air Room Air Positive well nourished and well developed General Appearance ED: well developed and NAD; Negative for pallor HEENT Reports TM's clear and moist mucous membranes HEENT Narrative: Patient has welling of his lips tongue due to cancer and radiation therapy. atraumatic; Negative for trauma or tenderness Tympanic Membrane ED: Yes TM's clear Eyes PERRL and EOMs intact bilaterally General Eye ED: Negative for pale conjunctiva or scleral icterus Neck no lymphadenopathy, no meningeal signs and no JVD Neck Narrative: Patient has a tracheostomy. There is whitish sputum noted from the tracheostomy. Resp No normal respiratory effort and No clear to auscultation bilaterally Auscultation: wheezes and diminished lung sounds Cardio regular rate, regular rhythm, S1 normal heart sound, S2 normal heart sound and no murmurs GI non-tender, non-distended and no masses Auscultation: normoactive bowel sounds Palpation: soft Back/Spine no CVA tenderness and normal to inspection Extremity Negative for normal to inspection Extremity Narrative: Patient has a sessile shaped burn lateral aspect of the left calf. There is no evidence of infection. He does have evidence of dry skin. He also has stigmata of peripheral arterial disease. General Extremety ED: Yes tenderness; Negative for edema General Extremity: Negative for edema Neuro oriented x3 and CN's II-XII intact bilaterally Bre Coma Scale: document GCS findings Spontaneous Obeys Commands Oriented 15 Sensorium / Orientation: alert Psych mental status grossly normal Thought Process: normal thought process Skin No no wounds Skin Narrative: Wound previously described left calf General Skin Exam: Negative for jaundice or pallor Lesions: No no lesions Rashes: No no rashes [facility] MDM Lab Data Attestation: I reviewed the patient's lab results. Lab results narrative: Count is unremarkable. He has mild anemia. There is a slight shift with no bandemia. Patient had a significant drop in his sodium since January 15. Chloride is also low at 83. Creatinine is 0.28. BUN to creatinine ratio is 31.8-1. With history of neck cancer will obtain urine osmolarity, serum osmolarity, TSH and cortisol to evaluate for SIADH. Labs: Laboratory Results - last 24 hr 01/22/22 01/22/22 20:30 20:30 WBC 7.4 RBC 3.13 L Hgb 9.9 L Hct 27.5 L MCV 87.9 MCH 31.6 MCHC 36.0 RDW Std Deviation 45.3 H RDW Coeff of Jennifer 14.2 Plt Count 276 MPV 8.2 Immature Gran % (Auto) 0.500 Neut % (Auto) 80.0 H Lymph % (Auto) 7.4 L [place] % (Auto) 11.7 H Eos % (Auto) 0.1 Baso % (Auto) 0.3 Absolute Neuts (auto) 6.0 Absolute Lymphs (auto) 0.55 L Nucleated RBC % 0 Differential Comment SCANNED Sodium 115 L* Potassium 3.9 Chloride 81 L Carbon Dioxide 27.0 Anion Gap 7 BUN 9 Creatinine 0.28 L Estim Creat Clear Calc 224.16 Est GFR (MDRD) Af Amer 421 Est GFR (MDRD) Non-Af 348 BUN/Creatinine Ratio 31.8 H Glucose 105 Calcium 8.8 Radiography Chest X-Ray - ED: 2 View, Read by ED Physician ([id number]), Unchanged, Heart, Mediastinum, Bony Structures, No Acute Disease and Chronic Changes Diagnostic Testing: Clinical Impression(s) from Imaging Studies Chest X-Ray 01/22/22 21:15 IMPRESSION: There are no acute findings. Electronically Signed: Charles Ayala MD at 21:32 EDT Reading Location ID and State: [facility] / [place] , Service support , EKG Initial EKG: Attestation: I personally reviewed and interpreted this EKG as follows: Interpretation: Sinus Rhythm (Rate is 70. The EKG is normal. [place] interval 70 ms. QRS duration is 170 ms. QRS durations 90 ms. QT duration 394 ms. 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
[2022-01-22 20:39] LABS: Absolute Lymphocyte Count 0.55 X10^3/uL (0.83-4.51); Basophil# 0.02 X10^3/uL; Basophil% 0.3 % (0-1); Eosinophil# 0.01 X10^3/uL; Eosinophils% 0.1 % (0-5); Hematocrit 27.5 % (40-54); Hemoglobin 9.9 g/dL (13.0-16.5); Lymphocyte # 0.55 X10^3/ul (0.83-4.51); Lymphocyte % 7.4 % (19-41); Mean Corpuscular Hgb 31.6 pg (27.0-32.0); Mean Corpuscular Volume 87.9 fL (80-94); Mean Platelet Vol. 8.2 fl (6.2-12.0); Monocyte# 0.87 X10^3/uL; Monocyte% 11.7 % (0-10); NRBC Flagged by Analyzer 0 % (0-5); Neutrophil # 5.95 X10^3/uL (2.7-7.7); POSITIVE DIFFERENTIAL YES; Platelet Count 276 K/mm3 (150-450); RBC Distribution Width CV 14.2 % (11.6-14.6); RBC Distribution Width SD 45.3 fl (35.1-43.9); Red Blood Count 3.13 M/mm3 (4.6-6.2); White Blood Count 7.4 K/mm3 (4.4-11.0)
[2022-01-22 20:45] LABS: Differential Indicated SCAN CRITERIA MET
[2022-01-22 21:00] LABS: Anion Gap 7 (5-15); BUN 9 mg/dL (7-18); BUN/Creat Ratio 31.8 RATIO (10-20); Calcium,Total 8.8 mg/dL (8.5-10.1); Chloride 81 mmol/L (98-107); Creatinine, Serum 0.28 mg/dL (0.70-1.30); EST Glomerular Filtration Rate 348 mL/min (>60); Est Glom Filt Rate - Afr Amer 421 mL/min (>60); Estimated Creatinine Clearance 224.16 ml/min; Glucose 105 mg/dL (74-106); Potassium 3.9 mmol/L (3.5-5.1); Sodium Level 115 mmol/L (136-145)
[2022-01-22 21:10] LABS: Differential Comment SCANNED
--- NOTE | 2022-01-22 21:13 | CPS ---
x3 Albuterol given to pt. in ER as well
--- NOTE | 2022-01-22 21:15 | RAD_ITS ---
STUDY: X-RAY CHEST REASON FOR EXAM: Male, 61 years old. Productive cough, wheezing, shortness of breath TECHNIQUE: XR Chest 2 Views COMPARISON: 12.1 FINDINGS: There is no demonstrated pleural abnormality. There is a tracheostomy tube. The tip is at the level of the clavicles. There is no pneumothorax. Normal size heart. Normal mediastinum and michelle. Normal visualized pulmonary arteries. There is atherosclerotic calcification of the aortic arch with tortuosity. There are diffuse degenerative changes of the visualized thoracic spine. There is degenerative osteoarthritis of the bilateral shoulders. There is no demonstrated abnormality of the visualized soft tissue structures of the upper abdomen. RAD/Chest PA and Lateral IMPRESSION: There are no acute findings. Electronically Signed: Charles Ayala MD at 21:32 EDT ,
[2022-01-22 21:58] LABS: Thyroid Stim Hormone (TSH) 2.09 uIU/mL (0.358-3.74)
--- NOTE | 2022-01-22 22:02 | PCM.HP.STD ---
Documented by User: SEPIDEH Stephenson 01/22/22 22:27 HPI - General General Date of Admission: 01/22/22 Date of Service: 01/22/22 Chief Complaint: Shortness of breath HPI Narrative MY PEREZ, is a 61 M who presents with complaints of shortness of breath. Patient just is currently undergoing radiation and chemotherapy treatments for head and neck cancer. Patient has a tracheostomy in place. Patient states that he has been intermittently short of breath over the past 2 days. Patient is not hypoxic and denies orthopnea. Patient reports occasional dyspnea on exertion with wheezing. Patient also reports that he has a sore throat with cough and increased sputum production that is white. Upon evaluation in ER patient was noted to be severely hyponatremic and hypochloremic for which patient is getting admitted. Evaluation for SIADH was initiated in the ER with urine osmolality, serum osmolality, TSH, and cortisol levels ordered. Patient denies any other medical history other than cancer. Patient also reports that he has been on p.o. nystatin for oral thrush [facility] Medical History Acid reflux Anemia Cancer related pain Cellulitis Difficulty swallowing Encounter for chemotherapy management Epigastric pain Hypertension malignant squamous cell carcinoma lt neck Mass of left side of neck peg tube removed Sleep disturbance Home Medications Levothyroxine 75 mg PO DAILY 08/25/20 [History Last Taken Unknown] pentoxifylline 400 mg tablet,extended release 400 mg PO TID #90 tab 05/17/21 [Rx Last Taken Unknown] vitamin E mixed 1,000 unit capsule 1,000 unit PO DAILY #30 cap 05/17/21 [Rx Last Taken Unknown] albuterol sulfate 1.25 mg INHALATION Q4H PRN #90 ml 12/10/21 [Rx Last Taken Unknown] nystatin 500,000 unit PO 4X/DAY 7 Days #112 ml 01/03/22 [Rx Last Taken Unknown] oxycodone 5 mg capsule 5 mg PO BID PRN 14 Days #30 cap 01/10/22 [Rx Last Taken Unknown] Allergy/AdvReac Type Severity Reaction Status Date / Time No Known Allergies Allergy Verified 01/22/22 19:55 Family History Mother CVA (cerebral vascular accident) Surgical History history of biopsy neck History of removal of Port-a-Cath Hx of tonsillectomy S/P percutaneous endoscopic gastrostomy (PEG) tube placement (~01/26/19) s/p port placement (~01/26/19) Social History Smoking Status: Former smoker quit date: 09/16/21 Tobacco: How many years used: 30 how long ago did patient quit smokin-4 months ago second hand exposure: Yes alcohol intake: former details: August 2021 substance use type: does not use seatbelt use: sometimes do you feel safe at home: Yes ROS Constitutional Constitutional: Denies anorexia, chills, fatigue, fever(s), malaise or weakness ENT HEENT: Reports other Details: Presence of tracheostomy Cardiovascular Cardiovascular: Denies chest pain, edema, palpitations or syncope Respiratory/Chest Respiratory/Chest: Reports cough, shortness of breath with exertion and wheezing Gastrointestinal Gastrointestinal: Denies abdominal pain, constipation, diarrhea, nausea or vomiting Genitourinary Genitourinary: Denies dysuria Musculoskeletal Musculoskeletal: Denies back pain, extremity pain, joint pain or joint stiffness Integumentary Integumentary: Reports wounds; Denies dry skin or jaundice Neurologic Neurologic: Denies abnormal gait, abnormal speech, confusion, dizziness or focal weakness Vital Signs Vital Signs Vital Signs: 01/22/22 19:54 01/22/22 20:13 01/22/22 20:34 Temperature 97.9 F Temperature Source Temporal Pulse Rate 73 83 Respiratory Rate 18 22 H Respiratory Effort Labored Normal Short of Breath Respiratory Depth Normal Shallow Respiratory Pattern Normal Tachypnea Blood Pressure 139/68 H Blood Pressure Mean 91 Pulse Ox 100 97 Oxygen Delivery Method Room Air Room Air Room Air Weight Weight: 123 lb Body Mass Index (BMI) 19.8 Physical Exam Const alert, oriented x3 and no apparent distress General Appearance: cooperative HEENT normocephalic and head/scalp atraumatic Face and Sinus: facial edema bilateral Positive for mandible (Patient currently undergoing treatment for mandibular carcinoma) Mouth: thrush Throat: other Other Details: Tracheostomy in place Eyes conjunctivae normal and no scleral icterus Neck General: trachea midline Resp normal respiratory effort and normal air movement Auscultation: wheezes scattered wheezes Cardio regular rate, regular rhythm, S1 normal heart sound, S2 normal heart sound and peripheral pulses 2+ throughout GI normal to inspection, nondistended, normoactive bowel sounds, soft to palpation and non-tender Extremity normal capillary refill and no clubbing, cyanosis or edema General Extremity: no tenderness to palpation of joints or extremities Skin Skin Narrative: 8 cm sessile shaped burn to the lateral aspect of the left calf, no signs or symptoms of infection, no drainage noted General Skin Exam: turgor normal Rashes: no rashes Wounds: wounds noted Neuro no focal motor deficits and no sensory deficits noted Motor Exam: Negative for general weakness Psych thought process normal, cooperative and affect normal Appearance: appropriate Results Lab / Micro Data Result Diagrams: 01/23/22 04:29 01/23/22 04:29 Labs: Laboratory Results - last 24 hr 01/22/22 20:30: WBC 7.4, RBC 3.13 L, Hgb 9.9 L, Hct 27.5 L, MCV 87.9, MCH 31.6, MCHC 36.0, RDW Std Deviation 45.3 H, RDW Coeff of Jennifer 14.2, Plt Count 276, MPV 8.2, Immature Gran % (Auto) 0.500, Neut % (Auto) 80.0 H, Lymph % (Auto) 7.4 L, [place] % (Auto) 11.7 H, Eos % (Auto) 0.1, Baso % (Auto) 0.3, Absolute Neuts (auto) 6.0, Absolute Lymphs (auto) 0.55 L, Nucleated RBC % 0, Differential Comment SCANNED 01/22/22 20:30: Sodium 115 L*, Potassium 3.9, Chloride 81 L, Carbon Dioxide 27.0, Anion Gap 7, BUN 9, Creatinine 0.28 L, Estim Creat Clear Calc 224.16, Est GFR (MDRD) Af Amer 421, Est GFR (MDRD) Non-Af 348, BUN/Creatinine Ratio 31.8 H, Glucose 105, Calcium 8.8 01/22/22 20:30: TSH 2.09 01/22/22 21:16: Cortisol 47.00 H Radiology Impression Chest X-Ray 01/22/22 21:15 IMPRESSION: There are no acute findings. Electronically Signed: Charles Ayala MD at 21:32 EDT , Assessment & Plan Assessment/Plan (1) Acute hyponatremia: (2) Acute bronchitis with bronchospasm: (3) Thrush, oral: PLAN: 1. 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 Acute bronchitis -Robitussin-DM as needed every 6 hours -Albuterol aerosols every 2 hours as needed -Tylenol 650 every 6 hours -Encourage deep breathing and coughing -Oxygen therapy as needed per protocol 3. Left calf wound -Apply dry sterile dressing Kerlix to area -Wound nurse consulted, currently no signs symptoms of infection and no drainage noted 4. Hypothyroidism -Continue levothyroxine 5. Thrush -Continue p.o. 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 Lee. 34 minutes spent in clinical coordination of patient's plan of care. Documented by User: Dr. Sonu Lee MD 01/23/22 06:58 HPI - General General Date of Admission: 01/22/22 [facility] Medical History Acid reflux Anemia Cancer related pain Cellulitis Difficulty swallowing Encounter for chemotherapy management Epigastric pain Hypertension malignant squamous cell carcinoma lt neck Mass of left side of neck peg tube removed Sleep disturbance Home Medications Levothyroxine 75 mg PO DAILY 12/03/20 [History Last Taken Unknown] pentoxifylline 400 mg tablet,extended release 400 mg PO TID #90 tab 05/17/21 [Rx Last Taken Unknown] vitamin E mixed 1,000 unit capsule 1,000 unit PO DAILY #30 cap 05/17/21 [Rx Last Taken Unknown] albuterol sulfate 1.25 mg INHALATION Q4H PRN #90 ml 12/10/21 [Rx Last Taken Unknown] nystatin 500,000 unit PO 4X/DAY 7 Days #112 ml 01/03/22 [Rx Last Taken Unknown] oxycodone 5 mg capsule 5 mg PO BID PRN 14 Days #30 cap 01/10/22 [Rx Last Taken Unknown] Allergy/AdvReac Type Severity Reaction Status Date / Time No Known Allergies Allergy Verified 01/22/22 19:55 Family History Mother CVA (cerebral vascular accident) Surgical History history of biopsy neck History of removal of Port-a-Cath Hx of tonsillectomy S/P percutaneous endoscopic gastrostomy (PEG) tube placement (~01/26/19) s/p port placement (~01/26/19) Social History Smoking Status: Former smoker quit date: 09/16/21 Tobacco: How many years used: 30 how long ago did patient quit smokin-4 months ago second hand exposure: Yes alcohol intake: former details: August 2021 substance use type: does not use seatbelt use: sometimes do you feel safe at home: Yes Results Lab / Micro Data Result Diagrams: 01/23/22 04:29 01/23/22 04:29 Charges/Coding Addendum Addendum: Patient seen and examined agree with above assessment and plan
[2022-01-22 22:09] LABS: Osmolality, Serum 238 mOsm/KG (275-295)
[2022-01-22] MEDS: 0.9% Normal Saline 1,000 ML 150 ML IV (22:43)
--- NOTE | 2022-01-22 23:35 | PCM.HOSP.N ---
Hospitalist Note Notified by Lina MERAZ that patient's daughter reports that there is someone in the household that is very sick but has yet to be tested for anything. Patient's daughter requesting patient be tested for COVID.
[2022-01-23] VITALS (11 sets, daily range): BP systolic 110–134; BP diastolic 60–78; PULSE 67–94; RESP 18–20; TEMP 36.6–37.1; O2SAT 97–100
[2022-01-23 00:30] LABS: Anion Gap 11 (5-15); BUN 7 mg/dL (7-18); BUN/Creat Ratio 20.7 RATIO (10-20); Calcium,Total 8.6 mg/dL (8.5-10.1); Chloride 80 mmol/L (98-107); Creatinine, Serum 0.34 mg/dL (0.70-1.30); EST Glomerular Filtration Rate 284 mL/min (>60); Est Glom Filt Rate - Afr Amer 343 mL/min (>60); Estimated Creatinine Clearance 187.61 ml/min; Glucose 145 mg/dL (74-106); Potassium 3.4 mmol/L (3.5-5.1); Sodium Level 116 mmol/L (136-145)
[2022-01-23] MEDS: Potassium Chloride Oral Tablet 20 MEQ 40 MEQ PO (01:39)
[2022-01-23 01:41] LABS: Osmolality, Urine 229 mOsm/KG
[2022-01-23] MEDS: Ondansetron 4 MG/2 ML Vial IV (03:13)
[2022-01-23] MEDS: guaiFENesin Dm 10 ML UDC 5 ML PO (03:16)
[2022-01-23] MEDS: 0.9% Normal Saline 1,000 ML 150 ML IV (05:00)
[2022-01-23 05:39] LABS: Absolute Lymphocyte Count 0.28 X10^3/uL (0.83-4.51); Absolute Neutrophil Count 7.7 X10^3/uL (2.0-7.7); Hematocrit 27.8 % (40-54); Hemoglobin 9.8 g/dL (13.0-16.5); Lymphocyte # 0.28 X10^3/ul (0.83-4.51); Lymphocyte % 3.4 % (19-41); Mean Corp Hgb Conc 35.3 g/dL (32-36); Mean Corpuscular Hgb 30.8 pg (27.0-32.0); Mean Corpuscular Volume 87.4 fL (80-94); Mean Platelet Vol. 8.9 fl (6.2-12.0); Monocyte# 0.13 X10^3/uL; Monocyte% 1.6 % (0-10); NRBC Flagged by Analyzer 0 % (0-5); Neutrophil # 7.72 X10^3/uL (2.7-7.7); Neutrophil % 94.5 % (47-70); POSITIVE DIFFERENTIAL YES; Platelet Count 315 K/mm3 (150-450); RBC Distribution Width CV 14.3 % (11.6-14.6); RBC Distribution Width SD 46.2 fl (35.1-43.9); Red Blood Count 3.18 M/mm3 (4.6-6.2); White Blood Count 8.2 K/mm3 (4.4-11.0)
[2022-01-23 05:42] LABS: Differential Indicated SCAN CRITERIA MET
[2022-01-23 06:17] LABS: Differential Comment SCANNED
[2022-01-23 06:33] LABS: Anion Gap 11 (5-15); BUN 6 mg/dL (7-18); Calcium,Total 8.5 mg/dL (8.5-10.1); Chloride 84 mmol/L (98-107); Creatinine, Serum 0.33 mg/dL (0.70-1.30); EST Glomerular Filtration Rate 289 mL/min (>60); Est Glom Filt Rate - Afr Amer 349 mL/min (>60); Glucose 136 mg/dL (74-106); Potassium 4.2 mmol/L (3.5-5.1); Sodium Level 117 mmol/L (136-145)
[2022-01-23 09:37] LABS: Urine Sodium 42 mmol/L (Not Establ.)
[2022-01-23 09:46] LABS: Anion Gap 10 (5-15); BUN 7 mg/dL (7-18); BUN/Creat Ratio 19.7 RATIO (10-20); Calcium,Total 8.7 mg/dL (8.5-10.1); Chloride 90 mmol/L (98-107); Creatinine, Serum 0.36 mg/dL (0.70-1.30); EST Glomerular Filtration Rate 267 mL/min (>60); Est Glom Filt Rate - Afr Amer 323 mL/min (>60); Estimated Creatinine Clearance 177.19 ml/min; Glucose 115 mg/dL (74-106); Potassium 4.5 mmol/L (3.5-5.1); Sodium Level 122 mmol/L (136-145)
--- NOTE | 2022-01-23 10:27 | WOUNDNOTE ---
wound photo: left lateral lower leg
--- NOTE | 2022-01-23 10:51 | CASEMGMT ---
KT SCHMID assessment: Face to Face with patient for initial transition planning/care coordination assessment. KT SCHMID introduced self and role at [facility], pt voices understanding and consents to assessment. Pt is sitting up on side of bed in no distress on room air. Pt is A/Ox4 and answers all questions appropriately. Care providers, pharmacy, and demographics verified/updated. Presentation: Pt c/o SOB Admitting dx: Hyponatremia PCP: Monica Specialists: Varun onc; mamadou Sellers onc; JAYSON Brooks surgeon Preferred Pharmacy: [facility] Insurance: [employer] Prescription Benefit: [employer] Living Will/HPOA: Pt has LW/HPOA and is aware that they are on file at [facility]. Pt's daughter, Kya Zacarias, is HPOA. LNOK: Kya Zacarias, daughter/HPOA; Rox Jama, daughter Living Arrangements: Pt lives with daughter, Rox, in 2 story home and states no concerns at home. Pt is independent with ADL's. Transportation: Pt drives self and states no transportation concerns. DME/HHC: Pt has trach supplies and suction. Pt states no need for any further DME and also states 'has all sorts of equipment from my dad.' Pt states has been to [facility] in the past but has not had HHC. Pt states no concerns with going home at time of discharge. Pt is on disability. Pt states does not smoke cigarettes or drink ETOH. Pt voices no further concerns/needs. CM to follow for any further discharge planning/needs. Advised pt to ask for CM if any further questions/concerns/needs arise, voices understanding. Pt Goal: Home Plan: [place] KT SCHMID
--- NOTE | 2022-01-23 11:21 | PCM.CONS.R ---
Assessment & Plan Assessment/Plan (1) Acute hyponatremia: PLAN: Baseline sodium is around 1 28-1 30. He takes tube feeds about 6 times a day. Also drinks water about 6 small cups a day. Sometimes even more. Tube feeds are in general hypotonic. His urine osmolality is around 220, technically this is not polydipsia but urine is still fairly dilute. 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 Worsened by increased water intake. He is not using much flushes. Will add salt tablets through G-tube. This way he does not have to swallow them. Sodium has already increased from 115-122 in about 12-14 hours. Stop fluids. Will do salt tablets only for now. dw hospitalist HPI Consult Data Date of Consult: 01/23/22 HPI Narrative HPI Narrative: MY PEREZ, is a 61 M who presents to the hospital with generalized weakness, shortness of breath. He has somewhat complicated history. He was diagnosed with squamous cell carcinoma of the jaw, status postresection, mandibular reconstruction. Finished chemotherapy.. Currently has a tracheostomy. Gets tube feed boluses about 6 times a day. He is able to drink liquids. He says he drinks about 6 small cups of water/liquids a day. Sodium usually runs around 130. Denies any urinary complaints. Came in with a sodium of 115. Sodium is now up to 122. No significant lower extremity edema. [facility] Medical History Acid reflux Anemia Cancer related pain Cellulitis Difficulty swallowing Encounter for chemotherapy management Epigastric pain Hypertension malignant squamous cell carcinoma lt neck Mass of left side of neck peg tube removed Sleep disturbance Home Medications Levothyroxine 125 mcg PO DAILY 08/25/20 [History Last Taken Unknown] pentoxifylline 400 mg tablet,extended release 400 mg PO TID #90 tab 05/17/21 [Rx Last Taken Unknown] vitamin E mixed 1,000 unit capsule 1,000 unit PO DAILY #30 cap 05/17/21 [Rx Last Taken Unknown] albuterol sulfate 1.25 mg INHALATION Q4H PRN #90 ml 12/10/21 [Rx Last Taken Unknown] oxycodone 5 mg capsule 5 mg PO BID PRN 14 Days #30 cap 01/10/22 [Rx Last Taken Unknown] amlodipine 5 mg PO DAILY 01/23/22 [History Last Taken Unknown] fluticasone propionate [Flonase] 1 spray INTRANASAL DAILY 01/23/22 [History Last Taken Unknown] Allergy/AdvReac Type Severity Reaction Status Date / Time No Known Allergies Allergy Verified 01/22/22 19:55 Family History Mother CVA (cerebral vascular accident) Surgical History history of biopsy neck History of removal of Port-a-Cath Hx of tonsillectomy S/P percutaneous endoscopic gastrostomy (PEG) tube placement (~01/26/19) s/p port placement (~01/26/19) Social History Smoking Status: Former smoker quit date: 09/16/21 Tobacco: How many years used: 30 how long ago did patient quit smokin-4 months ago second hand exposure: Yes alcohol intake: former details: August 2021 substance use type: does not use seatbelt use: sometimes do you feel safe at home: Yes ROS ROS Narrative Negative except above Physical Exam Narrative Alert awake oriented x 3 no obvious distress no pallor no icterus no JVD s1s2 no murmurs lungs clear abdomen soft no organomegaly no edema no cyanosis Lab / Micro Data Result Diagrams: 01/23/22 04:29 01/23/22 08:40 Labs: Laboratory Results - last 24 hr 01/22/22 20:30: WBC 7.4, RBC 3.13 L, Hgb 9.9 L, Hct 27.5 L, MCV 87.9, MCH 31.6, MCHC 36.0, RDW Std Deviation 45.3 H, RDW Coeff of Jennifer 14.2, Plt Count 276, MPV 8.2, Immature Gran % (Auto) 0.500, Neut % (Auto) 80.0 H, Lymph % (Auto) 7.4 L, [place] % (Auto) 11.7 H, Eos % (Auto) 0.1, Baso % (Auto) 0.3, Absolute Neuts (auto) 6.0, Absolute Lymphs (auto) 0.55 L, Nucleated RBC % 0, Differential Comment SCANNED 01/22/22 20:30: Sodium 115 L*, Potassium 3.9, Chloride 81 L, Carbon Dioxide 27.0, Anion Gap 7, BUN 9, Creatinine 0.28 L, Estim Creat Clear Calc 224.16, Est GFR (MDRD) Af Amer 421, Est GFR (MDRD) Non-Af 348, BUN/Creatinine Ratio 31.8 H, Glucose 105, Calcium 8.8 01/22/22 20:30: TSH 2.09 01/22/22 21:16: Cortisol 47.00 H 01/22/22 21:16: Serum Osmolality 238 L 01/23/22 00:03: Sodium 116 L*, Potassium 3.4 L, Chloride 80 L, Carbon Dioxide 25.0, Anion Gap 11, BUN 7, Creatinine 0.34 L, Estim Creat Clear Calc 187.61, Est GFR (MDRD) Af Amer 343, Est GFR (MDRD) Non-Af 284, BUN/Creatinine Ratio 20.7 H, Glucose 145 H, Calcium 8.6 01/23/22 00:05: COVID-19 (PEDRO) Not Detected 01/23/22 01:10: Urine Osmolality 229 01/23/22 04:29: Sodium 117 L*, Potassium 4.2, Chloride 84 L, Carbon Dioxide 22.0, Anion Gap 11, BUN 6 L, Creatinine 0.33 L, Estim Creat Clear Calc 193.30, Est GFR (MDRD) Af Amer 349, Est GFR (MDRD) Non-Af 289, BUN/Creatinine Ratio 18.0, Glucose 136 H, Calcium 8.5 01/23/22 04:29: WBC 8.2, RBC 3.18 L, Hgb 9.8 L, Hct 27.8 L, MCV 87.4, MCH 30.8, MCHC 35.3, RDW Std Deviation 46.2 H, RDW Coeff of Jennifer 14.3, Plt Count 315, MPV 8.9, Immature Gran % (Auto) 0.500, Neut % (Auto) 94.5 H, Lymph % (Auto) 3.4 L, [place] % (Auto) 1.6, Eos % (Auto) 0.0, Baso % (Auto) 0.0, Absolute Neuts (auto) 7.7, Absolute Lymphs (auto) 0.28 L, Nucleated RBC % 0, Differential Comment SCANNED 01/23/22 08:40: Sodium 122 L, Potassium 4.5, Chloride 90 L, Carbon Dioxide 22.0, Anion Gap 10, BUN 7, Creatinine 0.36 L, Estim Creat Clear Calc 177.19, Est GFR (MDRD) Af Amer 323, Est GFR (MDRD) Non-Af 267, BUN/Creatinine Ratio 19.7, Glucose 115 H, Calcium 8.7 01/23/22 09:08: Ur Random Sodium 42 Radiology Impression Chest X-Ray 01/22/22 21:15 IMPRESSION: There are no acute findings. Electronically Signed: Charles Ayala MD at 21:32 EDT ,
--- NOTE | 2022-01-23 11:32 | PN.HOSP_ITS ---
Subjective Subjective Patient seen and examined. He complained of feeling like his tracheostomy tube was blocked with mucus, making it difficult for him to breathe. HE had radiation therapy this morning. Review of systems is otherwise negative. Sodium is 117 today. Objective Data Objective Data Vital Signs: Vital Signs Temp Pulse Resp BP Pulse Ox 98.8 F 74 18 110/60 100 01/23/22 08:00 01/23/22 11:00 01/23/22 08:00 01/23/22 08:00 01/23/22 08:00 Oxygen Delivery Method Room Air Weight: 125 lb 0.034 oz Body Mass Index (BMI) 20.1 Intake & Output: Intake and Output for Last 24 Hours 01/21/22 01/22/22 01/23/22 23:59 23:59 23:59 Intake Total Balance Lab / Micro Data Result Diagrams: 01/23/22 04:29 01/23/22 08:40 Labs: Laboratory Results - last 24 hr 01/22/22 20:30: WBC 7.4, RBC 3.13 L, Hgb 9.9 L, Hct 27.5 L, MCV 87.9, MCH 31.6, MCHC 36.0, RDW Std Deviation 45.3 H, RDW Coeff of Jennifer 14.2, Plt Count 276, MPV 8.2, Immature Gran % (Auto) 0.500, Neut % (Auto) 80.0 H, Lymph % (Auto) 7.4 L, [place] % (Auto) 11.7 H, Eos % (Auto) 0.1, Baso % (Auto) 0.3, Absolute Neuts (auto) 6.0, Absolute Lymphs (auto) 0.55 L, Nucleated RBC % 0, Differential Comment SCANNED 01/22/22 20:30: Sodium 115 L*, Potassium 3.9, Chloride 81 L, Carbon Dioxide 27.0, Anion Gap 7, BUN 9, Creatinine 0.28 L, Estim Creat Clear Calc 224.16, Est GFR (MDRD) Af Amer 421, Est GFR (MDRD) Non-Af 348, BUN/Creatinine Ratio 31.8 H, Glucose 105, Calcium 8.8 01/22/22 20:30: TSH 2.09 01/22/22 21:16: Cortisol 47.00 H 01/22/22 21:16: Serum Osmolality 238 L 01/23/22 00:03: Sodium 116 L*, Potassium 3.4 L, Chloride 80 L, Carbon Dioxide 25.0, Anion Gap 11, BUN 7, Creatinine 0.34 L, Estim Creat Clear Calc 187.61, Est GFR (MDRD) Af Amer 343, Est GFR (MDRD) Non-Af 284, BUN/Creatinine Ratio 20.7 H, Glucose 145 H, Calcium 8.6 01/23/22 00:05: COVID-19 (PEDRO) Not Detected 01/23/22 01:10: Urine Osmolality 229 01/23/22 04:29: Sodium 117 L*, Potassium 4.2, Chloride 84 L, Carbon Dioxide 22.0, Anion Gap 11, BUN 6 L, Creatinine 0.33 L, Estim Creat Clear Calc 193.30, Est GFR (MDRD) Af Amer 349, Est GFR (MDRD) Non-Af 289, BUN/Creatinine Ratio 18.0, Glucose 136 H, Calcium 8.5 01/23/22 04:29: WBC 8.2, RBC 3.18 L, Hgb 9.8 L, Hct 27.8 L, MCV 87.4, MCH 30.8, MCHC 35.3, RDW Std Deviation 46.2 H, RDW Coeff of Jennifer 14.3, Plt Count 315, MPV 8.9, Immature Gran % (Auto) 0.500, Neut % (Auto) 94.5 H, Lymph % (Auto) 3.4 L, [place] % (Auto) 1.6, Eos % (Auto) 0.0, Baso % (Auto) 0.0, Absolute Neuts (auto) 7.7, Absolute Lymphs (auto) 0.28 L, Nucleated RBC % 0, Differential Comment SCANNED 01/23/22 08:40: Sodium 122 L, Potassium 4.5, Chloride 90 L, Carbon Dioxide 22.0, Anion Gap 10, BUN 7, Creatinine 0.36 L, Estim Creat Clear Calc 177.19, Est GFR (MDRD) Af Amer 323, Est GFR (MDRD) Non-Af 267, BUN/Creatinine Ratio 19.7, Glucos e 115 H, Calcium 8.7 01/23/22 09:08: Ur Random Sodium 42 Radiography Diagnostic Testing: Radiology Impression Chest X-Ray 01/22/22 21:15 IMPRESSION: There are no acute findings. Electronically Signed: Charles Ayala MD at 21:32 EDT , Physical Exam Const alert, oriented x3 and no apparent distress Exam Limitations: no limitations HEENT head/scalp atraumatic and moist oral mucous membranes HEENT Narrative: has Trach in place. On room air. Head and Scalp: normocephalic Eyes PERRL, EOMs intact bilaterally and conjunctivae normal Neck no lymphadenopathy and supple Resp Resp Narrative: diminished breath sounds bibasally, no wheezes or crackles. trach in place Cardio regular rate, regular rhythm, S1 normal heart sound, S2 normal heart sound and no murmurs GI normal to inspection, nondistended, normoactive bowel sounds, soft to palpation, non-tender and non-distended Extremity normal to inspection, full ROM and no clubbing, cyanosis or edema Peripheral Pulses: Yes pulses 2+ throughout Skin no rashes or lesions noted Neuro oriented x3, CN's II-XII intact bilaterally and moves all extremities Sensorium / Orientation: awake and alert Psych affect normal Assessment & Plan Assessment/Plan (1) Acute hyponatremia: PLAN: #Acute hyponatremia * Sodium was 105 on admission and is now 117 * This is likely due to SIADH from his head and neck malignancy. Serum osmolality is low and urine osmolality is elevated fitting in with a profile of SIADH. * Nephrology consulted; await rec;s * IVF discontinued per nephrology * #Acute bronchitis * may be exacerbated by mucus blocking his trach * trach to be suctioned. * breathing treatment with bronchodilators. Titrate oxygen to maintain sats >90% * #Squamous cell carcinoma of the mandible * had radiation today. * to follow up with oncologist and radiation oncologist on outpatient basis * #Hypothyroidism: On Synthroid DVT prophylaxis: lovenox Charges/Coding Visit Charges Inpatient E&M: 21321 Subs Hosp L2
[2022-01-23] MEDS: Sodium Chloride 1 GM Tablet 2 GM PO ×2 (12:37→21:10)
[2022-01-23 13:36] LABS: Anion Gap 7 (5-15); BUN 7 mg/dL (7-18); BUN/Creat Ratio 17.5 RATIO (10-20); Calcium,Total 8.8 mg/dL (8.5-10.1); Chloride 89 mmol/L (98-107); EST Glomerular Filtration Rate 234 mL/min (>60); Est Glom Filt Rate - Afr Amer 283 mL/min (>60); Estimated Creatinine Clearance 159.47 ml/min; Glucose 92 mg/dL (74-106); Potassium 4.1 mmol/L (3.5-5.1); Sodium Level 122 mmol/L (136-145)
[2022-01-23] MEDS: Pivot 1.5 Cal 1,000 ML BOTTLE 220 ML GT ×3 (15:59→21:10)
[2022-01-23 16:48] LABS: Anion Gap 7 (5-15); BUN 9 mg/dL (7-18); BUN/Creat Ratio 23.1 RATIO (10-20); Chloride 91 mmol/L (98-107); Creatinine, Serum 0.39 mg/dL (0.70-1.30); EST Glomerular Filtration Rate 241 mL/min (>60); Est Glom Filt Rate - Afr Amer 291 mL/min (>60); Estimated Creatinine Clearance 163.56 ml/min; Glucose 100 mg/dL (74-106); Sodium Level 123 mmol/L (136-145)
[2022-01-23] MEDS: 0.9% Saline Lock 10 ML Syringe IV (21:50)
--- NOTE | 2022-01-24 02:02 | NURSING ---
Patient refusing to wear Tele at this time. Removed and set in corner of room. White notified.
[2022-01-24 03:30] VITALS: BP 112/65; PULSE 62; RESP 18; TEMP 36.2; O2SAT 99
[2022-01-24] MEDS: Enoxaparin 40 MG/0.4 ML Syringe SC (05:31)
[2022-01-24] MEDS: Pivot 1.5 Cal 1,000 ML BOTTLE 220 ML GT ×5 (05:33→21:34)
[2022-01-24 07:03] VITALS: O2SAT 98
--- NOTE | 2022-01-24 07:33 | NURSING ---
No 0700 tele strip recorded, pt refusing tele monitoring.
[2022-01-24 09:10] VITALS: BP 96/66; PULSE 72; RESP 18; TEMP 36.7; O2SAT 99
[2022-01-24] MEDS: Sodium Chloride 1 GM Tablet 2 GM PO (09:15)
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
--- NOTE | 2022-01-24 11:02 | PCM.PN.REN ---
Subjective Subjective no new events Objective Data Objective Data Vital Signs: Vital Signs Temp Pulse Resp BP Pulse Ox 98.1 F 72 18 96/66 99 01/24/22 09:10 01/24/22 09:10 01/24/22 09:10 01/24/22 09:10 01/24/22 09:10 Oxygen Delivery Method Room Air Weight: 55.7 kg Body Mass Index (BMI) 20.1 Intake & Output: Intake and Output for Last 24 Hours 01/22/22 01/23/22 01/24/22 23:59 23:59 23:59 Intake Total 2357.5 / 2357.5 490 / 490 Balance 2357.5 / 2357.5 490 / 490 Lab / Micro Data Result Diagrams: 01/23/22 04:29 01/23/22 16:10 Labs: Laboratory Results - last 24 hr 01/23/22 12:43: Sodium 122 L, Potassium 4.1, Chloride 89 L, Carbon Dioxide 26.0, Anion Gap 7, BUN 7, Creatinine 0.40 L, Estim Creat Clear Calc 159.47, Est GFR (MDRD) Af Amer 283, Est GFR (MDRD) Non-Af 234, BUN/Creatinine Ratio 17.5, Glucose 92, Calcium 8.8 01/23/22 16:10: Sodium 123 L, Potassium 4.0, Chloride 91 L, Carbon Dioxide 25.0, Anion Gap 7, BUN 9, Creatinine 0.39 L, Estim Creat Clear Calc 163.56, Est GFR (MDRD) Af Amer 291, Est GFR (MDRD) Non-Af 241, BUN/Creatinine Ratio 23.1 H, Glucose 100, Calcium 9.0 Physical Exam Narrative Alert awake oriented x 3 no obvious distress no pallor no icterus no JVD s1s2 no murmurs lungs clear abdomen soft no organomegaly no edema no cyanosis Assessment & Plan Assessment/Plan (1) Acute hyponatremia: PLAN: Baseline sodium is around 1 28-1 30. He takes tube feeds about 6 times a day. Also drinks water about 6 small cups a day. Sometimes even more. Tube feeds are in general hypotonic. His urine osmolality is around 220, technically this is not polydipsia but urine is still fairly dilute. 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 Worsened by increased water intake. He is not using much flushes. Will add salt tablets through G-tube. This way he does not have to swallow them. Sodium has already increased from 115-122 in about 12-14 hours. 01/24/22. sodium remains low. increase salt tablets to 3 gm TID
[2022-01-24] MEDS: Sodium Chloride 1 GM Tablet 3 GM PO ×2 (11:23→21:25)
[2022-01-24 15:10] VITALS: BP 114/64; PULSE 67; RESP 18; TEMP 37; O2SAT 100
[2022-01-24 21:05] VITALS: BP 132/75; PULSE 68; RESP 18; TEMP 36.4; O2SAT 100
[2022-01-24] MEDS: Acetaminophen 325 MG Tablet 650 MG PO (21:23)
[2022-01-25 02:39] VITALS: BP 113/67; PULSE 69; RESP 18; TEMP 36.4; O2SAT 99
[2022-01-25 04:55] VITALS: BP 119/68; PULSE 69; RESP 18; TEMP 36.6; O2SAT 99
[2022-01-25] MEDS: Pivot 1.5 Cal 1,000 ML BOTTLE 220 ML GT ×2 (05:00→09:45)
[2022-01-25] MEDS: Sodium Chloride 1 GM Tablet 3 GM PO (05:00)
[2022-01-25] MEDS: Enoxaparin 40 MG/0.4 ML Syringe SC (05:01)
[2022-01-25 09:03] LABS: Absolute Neutrophil Count 4.4 X10^3/uL (2.0-7.7); Basophil# 0.01 X10^3/uL; Basophil% 0.2 % (0-1); Eosinophil# 0.01 X10^3/uL; Eosinophils% 0.2 % (0-5); Hematocrit 29.3 % (40-54); Hemoglobin 10.2 g/dL (13.0-16.5); Lymphocyte % 10.3 % (19-41); Mean Corp Hgb Conc 34.8 g/dL (32-36); Mean Corpuscular Hgb 31.4 pg (27.0-32.0); Mean Corpuscular Volume 90.2 fL (80-94); Mean Platelet Vol. 7.9 fl (6.2-12.0); Monocyte# 0.81 X10^3/uL; Monocyte% 13.9 % (0-10); NRBC Flagged by Analyzer 0 % (0-5); Neutrophil # 4.37 X10^3/uL (2.7-7.7); Neutrophil % 74.7 % (47-70); POSITIVE DIFFERENTIAL YES; Platelet Count 298 K/mm3 (150-450); RBC Distribution Width CV 15.5 % (11.6-14.6); Red Blood Count 3.25 M/mm3 (4.6-6.2); White Blood Count 5.8 K/mm3 (4.4-11.0)
[2022-01-25 09:04] LABS: Differential Indicated SCAN CRITERIA MET
[2022-01-25 09:26] LABS: Anion Gap 5 (5-15); BUN 16 mg/dL (7-18); BUN/Creat Ratio 43.4 RATIO (10-20); Calcium,Total 8.5 mg/dL (8.5-10.1); Chloride 96 mmol/L (98-107); Creatinine, Serum 0.37 mg/dL (0.70-1.30); EST Glomerular Filtration Rate 256 mL/min (>60); Est Glom Filt Rate - Afr Amer 310 mL/min (>60); Estimated Creatinine Clearance 172.09 ml/min; Glucose 109 mg/dL (74-106); Potassium 4.3 mmol/L (3.5-5.1); Sodium Level 129 mmol/L (136-145)
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
[2022-01-25 10:29] VITALS: BP 126/74; PULSE 69; RESP 18; TEMP 36.8; O2SAT 100
== END 2022-01-25 11:06 | disposition home or self-care (01) | DRG 644 ==
LOC: ED 21:29 → PCU 22:04
PROVIDERS: Nurse Practitioner Family; Admitting Provider Family Medicine; Emergency Provider Emergency Medicine; PCP Nurse Practitioner; Visit Provider Student in an Organized Health Care Education/Training Program
DX: E22.2 Syndrome of inappropriate secretion of antidiuretic hormone (principal); C77.9 Secondary and unspecified malignant neoplasm of lymph node, unspecified; C41.1 Malignant neoplasm of mandible; B37.0 Candidal stomatitis; Z93.0 Tracheostomy status; C76.0 Malignant neoplasm of head, face and neck; D64.9 Anemia, unspecified; I10 Essential (primary) hypertension; J20.9 Acute bronchitis, unspecified; K21.9 Gastro-esophageal reflux disease without esophagitis; E87.8 Other disorders of electrolyte and fluid balance, not elsewhere classified; E03.9 Hypothyroidism, unspecified; T24.032A Burn of unspecified degree of left lower leg, initial encounter; Z79.899 Other long term (current) drug therapy; Z87.891 Personal history of nicotine dependence; X08.8XXA Exposure to other specified smoke, fire and flames, initial encounter
CPT/HCPCS: 31720; 36415; 71046; 80048; 82533; 83930; 83935; 84300; 84443; 85025; 87635; 92610; 93005; 94640; 97802; 99251; 99284; J7030; A4216; G0463; J2405; U0003; U0005

== ENCOUNTER 2022-03-28 08:21 | Outpatient (RCR) | payer OTHER, SELFPAY ==
[2022-01-31 09:09] VITALS: BMI 22.6
== END 2022-04-22 23:59 ==
LOC: NS 08:21
PROVIDERS: PCP Nurse Practitioner; Referring Provider Student in an Organized Health Care Education/Training Program; Visit Provider Student in an Organized Health Care Education/Training Program
DX: R69 Illness, unspecified (principal)

== ENCOUNTER → 2022-04-13 | Outpatient (CLI) | payer OTHER, SELFPAY ==
[2022-01-31 09:09] VITALS: BMI 22.6
--- NOTE | 2022-04-13 09:34 | ST.MBS ---
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 Medical History: The pt is a 61-year-old male diagnosed with clinical stage NOREEN (cTx cN2b M0) p16 negative SCC of unknown primary with left neck adenopathy in level 2-[address] neck and chest (12/17/2018), ultrasound-guided FNA of the left neck mass (12/22/2018), PET scan (01/05/2019), triple endoscopy with targeted left tonsillectomy (01/30/2019). From 02/10/2019 ? 03/25/2019 he received definitive chemoradiation therapy. 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 11/07/2021: Patient underwent direct laryngoscopy, flexible bronchoscopy, flexible esophagoscopy, PEG tube placement, tracheostomy, composite resection of oral cavity, excision of skin and soft tissue measuring 8 x 9 cm, segmental mandibulectomy, right selective neck dissection of levels 1 through 4 and left neck exploration for vessels. Reconstruction was thigh free flap and had complex neck closure with split thickness skin graft. 12/05/2021: Trach re-inserted due to difficulty breathing when lying flat. 12/20/2021 ? 02/06/2022 He received reirradiation with weekly carboplatin. He has been following with speech therapy to manage oropharyngeal dysphagia. First MBS study completed 01/08/2022 revealing moderate oropharyngeal phase dysphagia and recommending minced and moist textures / thin liquids with use of aspiration precautions (SEE study for full recommendations). During most recent speech therapy session on 04/10/2022, he presented with coughing during the session with his residues of his beverage being expectorated from his trach. EXTRACTOR PLANT OPERATOR recommended repeat MBS study to reassess swallow function and aspiration risk prior to the patient meeting with his surgeon on 04/16/2022 to determine if he can have his PEG tube removed. Current Diet Ordered: Soft solids / Thin liquids Dentition: Edentulous Mental Status: WNL Respiratory Status: Oxygenating on Room Air - trach - Penetration-Aspiration Scale Penetration-Aspiration Scale: OBJECTIVE ASSESSMENT OF SWALLOW FUNCTION (QUANTITATIVE ? PER TRIAL): PENETRATION / ASPIRATION SCALE (SENIOR): 1 = does not enter airway 2 = enters airway/above vocal folds/ejected 3 = enters airway/above vocal folds/not ejected 4 = enters airway/contacts vocal folds/ejected 5 = enters airway/contacts vocal folds/not ejected 6 = enters airway/below vocal folds/ejected 7 = enters airway/below vocal folds/not ejected despite effort 8 = enters airway/below vocal folds/no effort VIDEOFLOROSCOPIC SCALE SCORE (SENIOR): Grade I = aspiration of material that has penetrated into the laryngeal vestibule, intact cough reflex Grade II = aspiration < 10 % of the bolus, intact cough reflex Grade III = aspiration of < 10 % of the bolus, reduced cough reflex or aspiration of > 10 % of the bolus, intact cough reflex Grade IV = aspiration of > 10 % of the bolus, reduced cough reflex - Penetration-Aspiration Scale Score Thin Liquid via teaspoon Result: 1= does not enter airway Thin Liquid via teaspoon Trial 2 Result: 1= does not enter airway Thin Liquid via small single sip from cup Result: 1= does not enter airway Thin Liquid via sequential sips from cup Result: 3= enters airways/above vocal folds/not ejected [place] Thick Liquid via small single sip from cup Result: 1= does not enter airway [place] Thick Liquid via small single sip from cup Result: 1= does not enter airway - Cued the patient for cough and re-swallow to clear the laryngeal vestibule of trace residues from the sequential sips of thin via cup. EXTRACTOR PLANT OPERATOR recommended placing PMSV and cleaned the valve for the patient via soap, water, and a swab to clear dried residues. Pudding via teaspoon with esophageal screen and thin liquid wash Result: 1= does not enter airway Thin Liquid via single sip from straw Result: 1= does not enter airway - Oral Phase Labial Seal: Escape beyond mid-chin Tongue Control During Bolus Hold: Posterior escape of less than half of bolus Bolus Transport/Lingual Motion: Slowed tongue motion Oral Residue: Residue collection on oral structures - Pharyngeal Phase Initiation of Pharyngeal Swallow: Bolus head in valleculae Soft Palate Elevation: No bolus between soft palate and pharyngeal wall Laryngeal Elevation: Partial superior movement thyroid cart/partial apprx aryt-epig petiole Anterior Hyoid Excursion: No anterior movement Epiglottic Movement: Complete inversion Laryngeal Vestibule Closure at Height of Swallow: Incomplete; narrow column of air/contrast in laryngeal vestibule Pharyngeal Stripping Wave: Present - diminished Pharyngoesophageal Segment Opening: Parital distension and partial duration; parital obstruction of flow Tongue Base Retraction: Narrow column of contrast between tongue base & post. pharyngeal wall Pharyngeal Residue: Collection of residue within or on pharyngeal structures - Esophageal Phase Esophageal Clearance: Esophageal retention w/ retrograde flow through pharyngoesophageal seg - Treatment Strategies Effects of treatment strategies attemped:: Decreased bolus rate = Effective. Liquid wash = Little to no impact clearing esophageal retention. - Diagnosis/Impression Diagnosis: Moderate oropharyngeal dysphagia R13.12, Mild esophageal dysphagia R13.14 Impression: Did not assess cookie as it is too hard of a solid for the patient to masticate. The oral phase is marked by... -Slowed tongue motion for A-P transport. -Poor labial seal with frequent anterior loss of liquids. -Decreased mastication abilities. The patient has difficulty with with jaw closure s/p composite resection and reconstruction of the FOM. The pharyngeal phase is marked by... -No visible anterior hyoid excursion and little laryngeal elevation resulting in decreased airway closure during the swallow. He did achieve full epiglottic inversion. -Decreased tongue base retraction, pharyngeal contraction, and UES opening/duration resulting in mild-moderate pharyngeal residue. He benefits from decreased bolus size and multiple swallows to clear the residue. -Laryngeal penetration of sequential sips of thin liquids via cup without full ejection from the laryngeal vestibule. No aspiration observed during the study; however, the patient is at increased risk for aspiration with large bolus sizes and quick rate of intake. The esophageal phase is marked by... -Retention of pudding in UES with retrograde flow to the pyriform sinuses. He is at increased risk to aspirate pharyngeal residue and reflux after the swallow. -Esophageal retention of pudding in the mid esophagus, which did not clear with use of a liquid wash. -Retrograde flow of liquid wash remaining below the UES. - Recommendations Diet: Thin Liquids - Soft and bite size textures (IDDSI Level 6) Comment: Cough and re-swallow if wet vocal quality Compensatory Strategies: Small Bites, Small Sips, Slow Rate - Sips ONE at a time, Multiple Swallows, Sitting upright, Remain sitting upright for 30 minutes after PO intake Recommend Repeat Modified Barium Swallow: Yes - Repeat MBS study in 6-12 months to monitor swallow function as the patient is at risk for worsening dysphagia and aspiration risk s/p radiation treatment. Need for Skilled Speech Therapy Services: Yes Recommended Referrals: GI Consult - Esophageal retention with retrograde flow of tsp of pudding bolus through UES. SEE esophageal impressions and images in PACS. Education Completed: 1. Described result of evaluation., 2. Pt understands evaluation & agrees with goals and treatment plan., 7. Pt requires further education on strategies & risks. - Status Active ST Patient: Active - Contact Information [facility] Speech Therapy:: Latosha Boyer M.A. [facility]-EXTRACTOR PLANT OPERATOR Speech-Language Pathologist [facility] [address] [place] [address] [email or web address] [phone] 04/13/22 12:15
== END | disposition home or self-care (01) ==
LOC: RAD 09:32
PROVIDERS: PCP Nurse Practitioner; Referring Provider Student in an Organized Health Care Education/Training Program; Visit Provider Student in an Organized Health Care Education/Training Program
DX: C41.1 Malignant neoplasm of mandible (principal)
CPT/HCPCS: 74230; 92611

== ENCOUNTER 2022-05-23 09:15 | Outpatient (RCR) | payer OTHER, SELFPAY ==
[2021-09-23 00:06] VITALS: BP 152/88; PULSE 95; TEMP 36.6; BMI 22.3
[2022-01-31 09:09] VITALS: BMI 22.6
[2022-04-25 08:55] VITALS: BP 146/66; PULSE 78; TEMP 36.1; BMI 22.3
--- NOTE | 2022-04-25 09:58 | PCM.WC.HP ---
History of Present Illness Date of Service: 04/25/22 Chief Complaint: Follow-up open surgical wound from cancer of the jaw. History of Wound: Hx of Throat cancer back in 2018 received chemo and then radiation treatments and finished it up but by the end of 2017.Recently was seen by oral surgery and had 8 teeth extracted 2 teeth have still not healed. Most recent surgery is November 07, 2021 reconstruction of the jaw using bone from his left lower leg but left the neck area open for healing. 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 Thrush, oral Home Medications Levothyroxine 125 mcg PO DAILY thyroid 08/25/20 [History Last Taken Unknown] pentoxifylline 400 mg tablet,extended release 400 mg PO TID radiation fibrosis #90 tabs 05/17/21 [Rx Last Taken Unknown] vitamin E mixed 1,000 unit capsule 1,000 unit PO DAILY radiation fibrosis #30 caps 05/17/21 [Rx Last Taken Unknown] albuterol sulfate 1.25 mg/3 mL solution for nebulization 1.25 mg (3 mL) inhalation Q4H PRN bronchospasm #90 mL 12/10/21 [Rx Last Taken Unknown] amlodipine 5 mg tablet 5 mg PO DAILY bp 01/23/22 [History Last Taken Unknown] fluticasone propionate 50 mcg/actuation nasal spray,suspension 1 spray intranasal DAILY health maintenance 01/23/22 [History Last Taken Unknown] sodium chloride 1,000 mg soluble tablet 3 g PO BID #60 tabs 01/25/22 [Rx Last Taken Unknown] nystatin 100,000 unit/mL oral suspension 1 ml PO Q6H 02/14/22 [History Last Taken Unknown] oxycodone 5 mg capsule 5 mg PO BID PRN pain 1 month #60 caps 03/27/22 [Rx Last Taken Unknown] silver sulfadiazine 1 % topical cream 1 applic topical BID skin peeling #85 grams 03/27/22 [Rx Last Taken Unknown] Allergy/AdvReac Type Severity Reaction Status Date / Time No Known Allergies Allergy Verified 03/27/22 09:26 Family History Mother CVA (cerebral vascular accident) Surgical History history of biopsy neck History of removal of Port-a-Cath Hx of tonsillectomy S/P percutaneous endoscopic gastrostomy (PEG) tube placement (~01/26/19) s/p port placement (~01/26/19) Social History Smoking Status: Former smoker quit date: 09/16/21 Tobacco: How many years used: 30 how long ago did patient quit smokin-4 months ago second hand exposure: Yes alcohol intake: former details: August 2021 substance use type: does not use seatbelt use: sometimes do you feel safe at home: Yes ROS Constitutional Constitutional: Reports systems reviewed and no addt'l complaints, except as documented Eyes Eyes: Reports systems reviewed and no addt'l complaints, except as documented ENT HEENT: Reports systems reviewed and no addt'l complaints, except as documented Cardiovascular Cardiovascular: Reports systems reviewed and no addt'l complaints, except as documented Respiratory/Chest Respiratory/Chest: Reports systems reviewed and no addt'l complaints, except as documented Gastrointestinal Gastrointestinal: Reports systems reviewed and no addt'l complaints, except as documented Genitourinary Genitourinary: Reports systems reviewed and no addt'l complaints, except as documented Musculoskeletal Musculoskeletal: Reports systems reviewed and no addt'l complaints, except as documented Integumentary Integumentary: Reports wounds and other Details: Surgical wound left jaw into neck open with slough Neurologic Neurologic: Reports systems reviewed and no addt'l complaints, except as documented Psychiatric Psychiatric: Reports systems reviewed and no addt'l complaints, except as documented Endocrine Endocrinology: Reports systems reviewed and no addt'l complaints, except as documented Hematologic/Lymphatic Hematologic/Lymphatic: Reports systems reviewed and no addt'l complaints, except as documented Allergic/Immunologic Allergic/Immunologic: Reports systems reviewed and no addt'l complaints, except as documented Vital Signs Vital Signs Vital Signs: 04/25/22 08:55 Temperature 97.0 F L Temperature Source Oral Pulse Rate 78 Blood Pressure 146/66 H Blood Pressure Mean 92 Blood Pressure Source Monitor Blood Pressure Position Semi-Fowlers Blood Pressure Location Right Arm Weight Weight: 130 lb Body Mass Index (BMI) 22.3 Physical Exam Const oriented x3 General Appearance: cooperative Exam Limitations: no limitations HEENT normocephalic Head and Scalp: normal to inspection Face and Sinus: normal facial exam Nose: external nose normal General Ear: hearing grossly impaired External Ear: external ears normal Mouth: oral and palatal mucosa normal Eyes PERRL General Eye: normal appearance of both eyes Neck No full ROM General: normal visual inspection Resp normal respiratory effort Effort and Inspection: able to speak in complete sentences Auscultation: clear to auscultation bilaterally Cardio regular rate and regular rhythm Palpation: normal PMI Rate: regular rate Rhythm: regular rhythm GI Auscultation: normoactive bowel sounds Palpation: soft and no hepatosplenomegaly external exam normal Back/Spine Cervical Spine: cervical ROM normal Thoracic Spine / Upper Back: normal to inspection Lumbar Spine / Lower Back: normal to inspection Extremity normal to inspection General Extremity: normal exam except as noted Skin no rashes or lesions noted Skin Narrative: Surgical wound left jaw and neck. Tracheotomy in place Neuro oriented x3 Psych Appearance: grossly normal Speech: normal speech Thought Content: normal thought content Judgement: judgement good Debridement Note Debridement Note Wound debrided: Left jaw surgical wound Laterality: Left Type of Debridement: Excisional debridement Anesthesia Used: 5% Lidocaine Gel Depth: in the subcutaneous layer Percentage of wound debrided: 100 Instrument Used: 5mm curette Tissue Removed: Slough Severity: Fat Layer Exposed Amount of bleeding with debridement: Mild Bleeding Controlled with: Compression and gauze Patient tolerated procedure: Patient tolerated procedure well Post-Debridement Measurements and Additional Note: Post-Debridement Measurements/Treatment - Nurse 1 - General Ulcer Assessment Start: 04/25/22 08:52 Freq: Status: Active Protocol: BRANDAN Activity Type Activity Date Activity User E-sign Co-sign Detail Recorded Client Recorded Date Recorded By Document 04/25/22 08:55 PALMIRA [id number] 04/25/22 09:04 PALMIRA 04/25/22 08:55 - Today's Visit Information Type of service Initial Visit Arrival Mode Ambulatory Patient Identification Verified (Name & Yes ) Height and Weight Body Mass Index (BMI) 22.3 BMI Classification Normal Vital Signs Temperature (97.8 F-99.1 F) 97.0 F L Temperature Source Oral Pulse Rate (60-100) 78 Pulse Location Monitor Blood Pressure (90/60-120/80) 146/66 H Blood Pressure Mean 92 Source Monitor Position Semi-Fowlers Blood Pressure Location Right Arm History Since Last Visit- (Skip if this is Patient's initial visit) Have you changed medications since your No last visit? Any new allergies or adverse reactions No Had a fall/change in ADL's that may No increase risk of falls Signs or symptoms of abuse and/or No neglect since last visit Have you been in the hospital since your No last visit? Has dressing in place as prescribed Yes Has compression in place as prescribed N/A Has offloadiing in place as prescribed N/A Experienced any changes in pain level or No management Left Footwear Regular Shoe Right Footwear Regular Shoe Pain Scale: 0-10 Numeric Is Patient Pain Free? Yes WC - Nurse 1 - General Ulcer Measurement Start: 04/25/22 08:52 Freq: Status: Active Protocol: Activity Type Activity Date Activity User E-sign Co-sign Detail Recorded Client Recorded Date Recorded By Document 04/25/22 08:55 [id number] 04/25/22 09:04 KR 04/25/22 08:55 Wound Center Nurse 1 #1 Chin -Current Size (cm) - Length 2.5 -Current Size (cm) - Width 5 -Current Size (cm) - Depth 0.1 -Total Square Cm 12.5 -Exudate Amt Small -Exudate Type Serosanguineous -Wound Margin Distinct, Outline Attached -Granulation Amt Large (67-100%) -Granulation Quality Red -Necrosis Amt None Present (0 %) -Texture (Candace-wound Skin Appearance) Assessed, Scarring -Moisture (Candace-wound Skin Appearance) No Abnormality, Assessed -Color (Candace-wound Skin Appearance) No Abnormality, Assessed -Temperature (Candace-wound Skin No Abnormality Appearance) (Pt Warm) -Tenderness on Palpation (Candace-wound No Skin Appearance) -Ulcer Cleansing Rinsed/ Irrigated with Saline -Foul Odor after Cleansing No -Anesthetic Used 5% Lidocaine Gel WC - Nurse 2 - General Ulcer CM Notes Start: 04/25/22 08:52 Freq: Status: Active Protocol: Activity Type Activity Date Activity User E-sign Co-sign Detail Recorded Client Recorded Date Recorded By Document 04/25/22 09:49 PL [id number] 04/25/22 09:51 PL 04/25/22 09:49 Wound Center Nurse 2 -Time 09:11 -Correct Patient Yes -Correct Side, Site, Position Yes -Correct Procedure Yes -Procedure Performed Yes -Type of Procedure Debridement -Clinical Debridement Subcutaneous -Tissue Removed Subcutaneous -Post Debridement (cm) - Length 3.0 -Post Debridement (cm) - Width 5.0 -Post Debridement (cm) - Depth 0.1 -Total Square (Post) (cm) 15.00 -Area of Debridement (cm) - Length 3.0 -Area of Debridement (cm) - Width 5.0 -Total Square (Area) (cm) 15.00 -Tunneling No -Undermining/Tunneling No -Circular Undermining No -Wound/Ulcer Outcome Not Healed -Ulcer Cleansing Rinsed/ Irrigated with Saline -Foul Odor after Cleansing No -Bioengineered Tissue No -Bleeding Controlled with Pressure -Treatment Response Procedure Tolerated Well -Debridement - Subq, 1st 20sq cm Yes Pain Scale: 0-10 Numeric Is Patient Pain Free? 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 Yes WC - Visit Discharge Discharge Condition Stable Transportation Private Auto Assessment/Plan Assessment/Plan (1) Head and neck cancer: CODE(S): C76.0 - Malignant neoplasm of head, face and neck (2) Delayed surgical wound healing: CODE(S): T81.89XA - Other complications of procedures, not elsewhere classified, initial encounter QUALIFIERS: Encounter type: subsequent encounter Qualified Code(s): T81.89XD - Other complications of procedures, not elsewhere classified, subsequent encounter PLAN: Wash area with antibacterial soap apply Santyl nickel thickness to wound base cover with a fluffed moistened 4 x 4 then cover with cushioned gauze 4 x 4's. Dressing is done daily Follow-up in 1 week We will apply for skin substitute
[2022-05-02 09:34] VITALS: BP 113/65; PULSE 61; RESP 18; TEMP 36.1; BMI 22.3
--- NOTE | 2022-05-02 10:01 | PCM.WC.PN ---
History of Present Illness Date of Service: 05/02/22 Chief Complaint: Follow-up open surgical wound from cancer of the jaw. 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 Most recent surgery is November 07, 2021 reconstruction of the jaw using bone from his left lower leg but left the neck area open for healing. Progress of Wound: The Santyl is starting to pull the slough away and were debriding more slough this week. Measurements are about the same not worsening. 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 Objective Data Objective Data We will continue with the Santyl to get more of the slough off, still pending on the skin sub approval from insurance Vital Signs: Vital Signs Temp Pulse Resp BP O2 Del Method 97 F L 61 18 113/65 Room Air 05/02/22 09:34 05/02/22 09:34 05/02/22 09:34 05/02/22 09:34 05/02/22 09:34 Oxygen Delivery Method Room Air Weight: 130 lb Body Mass Index (BMI) 22.3 Physical Exam Const oriented x3 General Appearance: cooperative Exam Limitations: no limitations HEENT normocephalic Head and Scalp: normal to inspection Face and Sinus: normal facial exam Nose: external nose normal General Ear: hearing grossly impaired External Ear: external ears normal Mouth: oral and palatal mucosa normal Eyes PERRL General Eye: normal appearance of both eyes Neck No full ROM General: normal visual inspection Resp normal respiratory effort Effort and Inspection: able to speak in complete sentences Auscultation: clear to auscultation bilaterally Cardio regular rate and regular rhythm Palpation: normal PMI Rate: regular rate Rhythm: regular rhythm GI Auscultation: normoactive bowel sounds Palpation: soft and no hepatosplenomegaly external exam normal Back/Spine Cervical Spine: cervical ROM normal Thoracic Spine / Upper Back: normal to inspection Lumbar Spine / Lower Back: normal to inspection Extremity normal to inspection General Extremity: normal exam except as noted Skin no rashes or lesions noted Skin Narrative: Surgical wound left jaw and neck. Tracheotomy in place Neuro oriented x3 Psych Appearance: grossly normal Speech: normal speech Thought Content: normal thought content Judgement: judgement good Debridement Note Debridement Note Post-Debridement Measurements and Additional Note: Post-Debridement Measurements/Treatment - Nurse 1 - General Ulcer Assessment Start: 04/25/22 08:52 Freq: Status: Active Protocol: BRANDAN Activity Type Activity Date Activity User E-sign Co-sign Detail Recorded Client Recorded Date Recorded By Document 04/25/22 08:55 KR [id number] 04/25/22 09:04 KR Document 05/02/22 09:34 WI [id number] 05/02/22 09:40 MT 04/25/22 05/02/22 08:55 09:34 - Today's Visit Information Type of service Initial Visit Arrival Mode Ambulatory Patient Identification Verified (Name & Yes ) Height and Weight Body Mass Index (BMI) 22.3 22.3 BMI Classification Normal Normal Vital Signs Temperature (97.8 F-99.1 F) 97.0 F L 97 F L Temperature Source Oral Temporal Pulse Rate (60-100) 78 61 Pulse Location Monitor Monitor Respiratory Rate (12-18) 18 Respiratory rate source Observation Oxygen Delivery Method Room Air Blood Pressure (90/60-120/80) 146/66 H 113/65 Blood Pressure Mean (mm Hg) 92 81 Source Monitor Monitor Position Semi-Fowlers Sitting Blood Pressure Location Right Arm Left Arm History Since Last Visit- (Skip if this is Patient's initial visit) Have you changed medications since your No last visit? Any new allergies or adverse reactions No Had a fall/change in ADL's that may No increase risk of falls Signs or symptoms of abuse and/or No neglect since last visit Have you been in the hospital since your No last visit? Has dressing in place as prescribed Yes Yes Has compression in place as prescribed N/A Yes Has offloadiing in place as prescribed N/A Yes Experienced any changes in pain level or No Yes management Left Footwear Regular Shoe Right Footwear Regular Shoe Pain Scale: 0-10 Numeric Is Patient Pain Free? Yes Yes - Nurse 1 - General Ulcer Measurement Start: 04/25/22 08:52 Freq: Status: Active Protocol: Activity Type Activity Date Activity User E-sign Co-sign Detail Recorded Client Recorded Date Recorded By Document 04/25/22 08:55 PALMIRA [id number] 04/25/22 09:04 KR Document 05/02/22 09:34 WI [id number] 05/02/22 09:40 WI 04/25/22 05/02/22 08:55 09:34 Wound Center Nurse 1 #1 Chin -Current Size (cm) - Length 2.5 6 -Current Size (cm) - Width 5 2.6 -Current Size (cm) - Depth 0.1 0.4 -Total Square Cm 12.5 15.6 -Exudate Amt Small Medium -Exudate Type Serosanguineous Serosanguineous -Wound Margin Distinct, Thickened & Outline Rolled Under Attached -Granulation Amt Large (67-100%) Small (1-33%) -Granulation Quality Red Pale,Oriental -Necrosis Amt None Present (0 Large (67-100%) %) -Necrotic Tissue Type Adherent Slough -Texture (Candace-wound Skin Appearance) Assessed, Assessed Scarring -Moisture (Candace-wound Skin Appearance) No Abnormality, Assessed Assessed -Color (Candace-wound Skin Appearance) No Abnormality, Assessed Assessed -Temperature (Candace-wound Skin No Abnormality No Abnormality Appearance) (Pt Warm) (Pt Warm) -Tenderness on Palpation (Candace-wound No No Skin Appearance) -Ulcer Cleansing Rinsed/ Rinsed/ Irrigated with Irrigated with Saline Saline -Foul Odor after Cleansing No No -Anesthetic Used 5% Lidocaine 4% Lidocaine Gel Solution Lower Limb Edema Present NA WC - Nurse 2 - General Ulcer CM Notes Start: 04/25/22 08:52 Freq: Status: Active Protocol: Activity Type Activity Date Activity User E-sign Co-sign Detail Recorded Client Recorded Date Recorded By Document 04/25/22 09:49 PL [id number] 04/25/22 09:51 PL Document 05/02/22 09:43 MW [id number] 05/02/22 09:47 MW 04/25/22 05/02/22 09:49 09:43 Wound Center Nurse 2 #1 Chin -Time 09:11 09:44 -Correct Patient Yes Yes -Correct Side, Site, Position Yes Yes -Correct Procedure Yes Yes -Procedure Performed Yes Yes -Type of Procedure Debridement Debridement -Clinical Debridement Subcutaneous Subcutaneous -Tissue Removed Subcutaneous Subcutaneous -Post Debridement (cm) - Length 3.0 3.0 -Post Debridement (cm) - Width 5.0 4.5 -Post Debridement (cm) - Depth 0.1 0.3 -Total Square (Post) (cm) 15.00 13.50 -Area of Debridement (cm) - Length 3.0 3.0 -Area of Debridement (cm) - Width 5.0 4.5 -Total Square (Area) (cm) 15.00 13.50 -Tunneling No No -Undermining/Tunneling No No -Circular Undermining No No -Wound/Ulcer Outcome Not Healed Not Healed -Ulcer Cleansing Rinsed/ Rinsed/ Irrigated with Irrigated with Saline Saline -Foul Odor after Cleansing No No -Bioengineered Tissue No No -Bleeding Controlled with Pressure Pressure -Treatment Response Procedure Procedure Tolerated Well Tolerated Well -Offloading No -Debridement - Subq, 1st 20sq cm Yes Yes Pain Scale: 0-10 Numeric Is Patient Pain Free? Yes Yes - Nurse 3 - General Ulcer D/C NN Start: 04/25/22 08:52 Freq: Status: Active Protocol: Activity Type Activity Date Activity User E-sign Co-sign Detail Recorded Client Recorded Date Recorded By Document 04/25/22 09:21 BMF [id number] 04/25/22 09:23 BMF Document 05/02/22 09:53 DL [id number] 05/02/22 09:54 DL Edit Result 05/02/22 09:53 DL (1) [id number] 05/02/22 09:55 DL (1) Notes: Pt to resume santyl at home => Pt to resume santyl at home. Dressing applied today by Keli Petit RN. 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 Yes Yes WC - Visit Discharge Discharge Condition Stable Stable Ambulatory Status Ambulatory Transportation Private Auto Private Auto Notes: Pt to resume santyl at home. Dressing applied today by Keli Petit RN. Assessment/Plan Assessment/Plan (1) Head and neck cancer: CODE(S): C76.0 - Malignant neoplasm of head, face and neck (2) Delayed surgical wound healing: CODE(S): T81.89XA - Other complications of procedures, not elsewhere classified, initial encounter QUALIFIERS: Encounter type: subsequent encounter Qualified Code(s): T81.89XD - Other complications of procedures, not elsewhere classified, subsequent encounter PLAN: Wash area with antibacterial soap apply Santyl nickel thickness to wound base cover with Adaptic then 4 x 4 then cover with cushioned gauze 4 x 4's. Dressing is done daily Follow-up in 1 week
[2022-05-09 08:29] VITALS: BP 139/65; PULSE 74; TEMP 36.4; BMI 22.3
--- NOTE | 2022-05-09 09:29 | PN.PCM_ITS ---
History of Present Illness Date of Service: 05/09/22 Chief Complaint: Follow-up open surgical wound from cancer of the jaw. 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 Most recent surgery is November 07, 2021 reconstruction of the jaw using bone from his left lower leg but left the neck area open for healing. Progress of Wound: The Santyl is starting to pull the slough away and were debriding more slough this week. Measurements are smaller and has developed an odor. We will get cultures today Subjective Subjective Patient has no concerns daughter is in the room she agrees Objective Data Objective Data Again the green slough is coming off with using a curette and pickups and blade. Does have some odor to the area we will culture to make sure were not missing anything. Vital Signs: Vital Signs Temp Pulse Resp BP O2 Del Method 97.5 F L 74 18 139/65 H Room Air 05/09/22 08:29 05/09/22 08:29 05/02/22 09:34 05/09/22 08:29 05/02/22 09:34 Oxygen Delivery Method Room Air Weight: 130 lb Body Mass Index (BMI) 22.3 Debridement Note Debridement Note Wound debrided: Left jaw surgical wound Laterality: Left Type of Debridement: Excisional debridement Anesthesia Used: 5% Lidocaine Gel Depth: to bone Percentage of wound debrided: 100 Instrument Used: 5mm curette, #15 blade and Forceps Tissue Removed: Slough Severity: Fat Layer Exposed Amount of bleeding with debridement: Mild Bleeding Controlled with: Compression and gauze Patient tolerated procedure: Patient tolerated procedure well Post-Debridement Measurements and Additional Note: Post-Debridement Measurements/Treatment WC - Nurse 1 - General Ulcer Assessment Start: 04/25/22 08:52 Freq: Status: Active Protocol: BRANDAN Activity Type Activity Date Activity User E-sign Co-sign Detail Recorded Client Recorded Date Recorded By Document 04/25/22 08:55 KR [id number] 04/25/22 09:04 KR Document 05/02/22 09:34 MT [id number] 05/02/22 09:40 MT Document 05/09/22 08:29 KR [id number] 05/09/22 08:30 KR 04/25/22 05/02/22 05/09/22 08:55 09:34 08:29 - Today's Visit Information Type of service Initial Visit Follow-up Visit (Physician/[employer] ) Arrival Mode Ambulatory Ambulatory Patient Identification Verified (Name & Yes Yes ) Height and Weight Body Mass Index (BMI) 22.3 22.3 22.3 BMI Classification Normal Normal Normal Vital Signs Temperature (97.8 F-99.1 F) 97.0 F L 97 F L 97.5 F L Temperature Source Oral Temporal Temporal Pulse Rate (60-100) 78 61 74 Pulse Location Monitor Monitor Monitor Respiratory Rate (12-18) 18 Respiratory rate source Observation Oxygen Delivery Method Room Air Blood Pressure (90/60-120/80) 146/66 H 113/65 139/65 H Blood Pressure Mean (mm Hg) 92 81 89 Source Monitor Monitor Monitor Position Semi-Fowlers Sitting Semi-Fowlers Blood Pressure Location Right Arm Left Arm Right Arm History Since Last Visit- (Skip if this is Patient's initial visit) Have you changed medications since your No No last visit? Any new allergies or adverse reactions No No Had a fall/change in ADL's that may No No increase risk of falls Signs or symptoms of abuse and/or No No neglect since last visit Have you been in the hospital since your No last visit? Has dressing in place as prescribed Yes Yes Yes Has compression in place as prescribed N/A Yes N/A Has offloadiing in place as prescribed N/A Yes N/A Experienced any changes in pain level or No Yes No management Left Footwear Regular Shoe Regular Shoe Right Footwear Regular Shoe Regular Shoe Pain Scale: 0-10 Numeric Is Patient Pain Free? Yes Yes Yes - Nurse 1 - General Ulcer Measurement Start: 04/25/22 08:52 Freq: Status: Active Protocol: Activity Type Activity Date Activity User E-sign Co-sign Detail Recorded Client Recorded Date Recorded By Document 04/25/22 08:55 KR [id number] 04/25/22 09:04 KR Document 05/02/22 09:34 MT [id number] 05/02/22 09:40 MT Document 05/09/22 08:29 KR [id number] 05/09/22 08:30 KR 08/12/1205/02/22 05/09/22 08:55 09:34 08:29 Wound Center Nurse 1 #1 Chin -Current Size (cm) - Length 2.5 6 2.3 -Current Size (cm) - Width 5 2.6 4.6 -Current Size (cm) - Depth 0.1 0.4 0.2 -Total Square Cm 12.5 15.6 10.58 -Exudate Amt Small Medium Medium -Exudate Type Serosanguineous Serosanguineous Serosanguineous -Wound Margin Distinct, Thickened & Outline Rolled Under Attached -Granulation Amt Large (67-100%) Small (1-33%) Small (1-33%) -Granulation Quality Red Pale,[place] -Necrosis Amt None Present (0 Large (67-100%) Large (67-100%) %) -Necrotic Tissue Type Adherent Slough Adherent Slough -Texture (Candace-wound Skin Appearance) Assessed, Assessed Assessed, Scarring Scarring -Moisture (Candace-wound Skin Appearance) No Abnormality, Assessed No Abnormality, Assessed Assessed -Color (Candace-wound Skin Appearance) No Abnormality, Assessed No Abnormality, Assessed Assessed -Temperature (Candace-wound Skin No Abnormality No Abnormality No Abnormality Appearance) (Pt Warm) (Pt Warm) (Pt Warm) -Tenderness on Palpation (Candace-wound No No No Skin Appearance) -Ulcer Cleansing Rinsed/ Rinsed/ Rinsed/ Irrigated with Irrigated with Irrigated with Saline Saline Saline -Foul Odor after Cleansing No No No -Anesthetic Used 5% Lidocaine 4% Lidocaine 5% Lidocaine Gel Solution Gel Lower Limb Edema Present NA WC - Nurse 2 - General Ulcer CM Notes Start: 04/25/22 08:52 Freq: Status: Active Protocol: Activity Type Activity Date Activity User E-sign Co-sign Detail Recorded Client Recorded Date Recorded By Document 04/25/22 09:49 PL [id number] 04/25/22 09:51 PL Document 05/02/22 09:43 MW [id number] 05/02/22 09:47 MW Document 05/09/22 08:38 MW [id number] 05/09/22 08:45 MW 04/25/22 05/02/22 05/09/22 09:49 09:43 08:38 Wound Center Nurse 2 #1 Chin -Time 09:11 09:44 08:38 -Correct Patient Yes Yes Yes -Correct Side, Site, Position Yes Yes Yes -Correct Procedure Yes Yes Yes -Procedure Performed Yes Yes Yes -Type of Procedure Debridement Debridement Debridement -Clinical Debridement Subcutaneous Subcutaneous Subcutaneous -Tissue Removed Subcutaneous Subcutaneous Subcutaneous -Post Debridement (cm) - Length 3.0 3.0 3.0 -Post Debridement (cm) - Width 5.0 4.5 4.0 -Post Debridement (cm) - Depth 0.1 0.3 0.5 -Total Square (Post) (cm) 15.00 13.50 12.00 -Area of Debridement (cm) - Length 3.0 3.0 3.0 -Area of Debridement (cm) - Width 5.0 4.5 4.0 -Total Square (Area) (cm) 15.00 13.50 12.00 -Tunneling No No No -Undermining/Tunneling No No No -Circular Undermining No No No -Wound/Ulcer Outcome Not Healed Not Healed Not Healed -Ulcer Cleansing Rinsed/ Rinsed/ Rinsed/ Irrigated with Irrigated with Irrigated with Saline Saline Saline -Foul Odor after Cleansing No No No -Bioengineered Tissue No No No -Bleeding Controlled with Pressure Pressure Pressure -Treatment Response Procedure Procedure Procedure Tolerated Well Tolerated Well Tolerated Well -Offloading No No -Debridement - Subq, 1st 20sq cm Yes Yes Yes Pain Scale: 0-10 Numeric Is Patient Pain Free? Yes Yes Yes WC - Nurse 3 - General Ulcer D/C NN Start: 04/25/22 08:52 Freq: Status: Active Protocol: Activity Type Activity Date Activity User E-sign Co-sign Detail Recorded Client Recorded Date Recorded By Document 04/25/22 09:[address] [facility] [id number] 04/25/22 09:23 BMF Document 05/02/22 09:53 DL [id number] 05/02/22 09:54 DL Edit Result 05/02/22 09:53 DL (1) [id number] 05/02/22 09:55 DL Document 05/09/22 09:08 AK [id number] 05/09/22 09:09 AK (1) Notes: Pt to resume santyl at home => Pt to resume santyl at home. Dressing applied today by Keli Petit RN. 04/25/22 05/02/22 05/09/22 09:21 09:53 09:08 Wound Care Nurse 3 #1 Chin -Ulcer Cleansing Rinsed/ Rinsed/ Rinsed/ Irrigated with Irrigated with Irrigated with Saline Saline Saline -Foul Odor after Cleansing No No No -Negative Pressure Wound Therapy N/A -Primary Dressing Applied Aquacel Extra NonAdherent NonAdherent Contact Layer Contact Layer -Other Dressing hydrogel today santyl in clinic -Primary Dressing Covered/Secured with Dry Gauze, Dry Gauze, Dry Gauze, Secured with Secured with Secured with Tape Tape Tape -Other Covering DRSG PER [place] [employer]IVIL ATTORNEY , PT TO USE SANTYL AT HOME -Aquacel Extra 1 Treatment Response Procedure Procedure Tolerated Well Tolerated Well Pain Scale: 0-10 Numeric Is Patient Pain Free? Yes Yes Yes WC - Visit Discharge Discharge Condition Stable Stable Stable Ambulatory Status Ambulatory Ambulatory Transportation Private Auto Private Auto Private Auto Accompanied by daughter Medication Reconcilliation completed & Yes provided to patient/care provider Clinical Summary of Care Provided Yes Notes: Pt to resume santyl at home. Dressing applied today by Keli Petit RN. Assessment/Plan Assessment/Plan (1) Head and neck cancer: CODE(S): C76.0 - Malignant neoplasm of head, face and neck (2) Delayed surgical wound healing: CODE(S): T81.89XA - Other complications of procedures, not elsewhere classified, initial encounter QUALIFIERS: Encounter type: subsequent encounter Qualified Code(s): T81.89XD - Other complications of procedures, not elsewhere classified, subsequent encounter PLAN: Wash area with antibacterial soap apply Santyl nickel thickness to wound base cover with Adaptic then 4 x 4 then cover with cushioned gauze 4 x 4's. Dressing is done daily We will call with culture results Follow-up in 1 week
[2022-05-16 09:18] VITALS: BP 134/74; PULSE 77; TEMP 36.4; BMI 22.3
--- NOTE | 2022-05-16 10:39 | PN.PCM_ITS ---
History of Present Illness Date of Service: 05/16/22 Chief Complaint: Follow-up open surgical wound from cancer of the jaw. 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 Most recent surgery is November 07, 2021 reconstruction of the jaw using bone from his left lower leg but left the neck area open for healing. Progress of Wound: The Santyl is starting to pull the slough away and were debriding more slough again this week. Cultures came back positive for bacteria and started him on antibiotic therapy this last week. We will also start using Fibracol with Adaptic rather than the Santyl this week. Subjective Subjective Patient states is already started his antibiotic on Saturday Objective Data Objective Data Cleaned up really well this week still had a covered with slough. Blood easily tolerated procedure well. We will try using Fibracol this week instead of the Santyl Vital Signs: Vital Signs Temp Pulse Resp BP O2 Del Method 97.5 F L 77 18 134/74 H Room Air 05/16/22 09:18 05/16/22 09:18 05/02/22 09:34 05/16/22 09:18 05/02/22 09:34 Oxygen Delivery Method Room Air Weight: 130 lb Body Mass Index (BMI) 22.3 Lab / Micro Data Attestation: I reviewed the patient's lab results. Micro: Microbiology 05/09/22 08:45 Wound Abcess - Face Gram Stain - Final 05/09/22 08:45 Wound Abcess - Face Wound Culture - Final Proteus vulgaris Pseudomonas aeroginosa Meth. resistant Staph. aureus Gram positive miguel 05/09/22 08:45 Wound Abcess - Face Anaerobic Culture - Final No anaerobic bacteria isolated. Physical Exam Const oriented x3 General Appearance: cooperative Exam Limitations: no limitations HEENT normocephalic Head and Scalp: normal to inspection Face and Sinus: normal facial exam Nose: external nose normal General Ear: hearing grossly impaired External Ear: external ears normal Mouth: oral and palatal mucosa normal Eyes PERRL General Eye: normal appearance of both eyes Neck No full ROM General: normal visual inspection Resp normal respiratory effort Effort and Inspection: able to speak in complete sentences Auscultation: clear to auscultation bilaterally Cardio regular rate and regular rhythm Palpation: normal PMI Rate: regular rate Rhythm: regular rhythm GI Auscultation: normoactive bowel sounds Palpation: soft and no hepatosplenomegaly external exam normal Back/Spine Cervical Spine: cervical ROM normal Thoracic Spine / Upper Back: normal to inspection Lumbar Spine / Lower Back: normal to inspection Extremity normal to inspection General Extremity: normal exam except as noted Skin no rashes or lesions noted Skin Narrative: Surgical wound left jaw and neck. Tracheotomy in place Neuro oriented x3 Psych Appearance: grossly normal Speech: normal speech Thought Content: normal thought content Judgement: judgement good Debridement Note Debridement Note Wound debrided: Left jaw area surgical wound nonhealing Laterality: Left Type of Debridement: Excisional debridement Anesthesia Used: 5% Lidocaine Gel Depth: in the subcutaneous layer and to muscle Percentage of wound debrided: 100 Instrument Used: 3mm curette Tissue Removed: Slough some fibrin Severity: Fat Layer Exposed Amount of bleeding with debridement: Mild Bleeding Controlled with: Compression and gauze Patient tolerated procedure: Patient tolerated procedure well Post-Debridement Measurements and Additional Note: Post-Debridement Measurements/Treatment - Nurse 1 - General Ulcer Assessment Start: 04/25/22 08:52 Freq: Status: Active Protocol: BRANDAN Activity Type Activity Date Activity User E-sign Co-sign Detail Recorded Client Recorded Date Recorded By Document 04/25/22 08:55 [id number] 04/25/22 09:04 KR Document 05/02/22 09:34 HI [id number] 05/02/22 09:40 HI Document 05/09/22 08:29 KR [id number] 05/09/22 08:30 KR Document 05/16/22 09:18 KR [id number] 05/16/22 09:21 KR 04/25/22 05/02/22 05/09/22 08:55 09:34 08:29 - Today's Visit Information Type of service Initial Visit Follow-up Visit (Physician/[employer] ) Arrival Mode Ambulatory Ambulatory Patient Identification Verified (Name & Yes Yes ) Height and Weight Body Mass Index (BMI) 22.3 22.3 22.3 BMI Classification Normal Normal Normal Vital Signs Temperature (97.8 F-99.1 F) 97.0 F L 97 F L 97.5 F L Temperature Source Oral Temporal Temporal Pulse Rate (60-100) 78 61 74 Pulse Location Monitor Monitor Monitor Respiratory Rate (12-18) 18 Respiratory rate source Observation Oxygen Delivery Method Room Air Blood Pressure (90/60-120/80) 146/66 H 113/65 139/65 H Blood Pressure Mean (mm Hg) 92 81 89 Source Monitor Monitor Monitor Position Semi-Fowlers Sitting Semi-Fowlers Blood Pressure Location Right Arm Left Arm Right Arm History Since Last Visit- (Skip if this is Patient's initial visit) Have you changed medications since your No No last visit? Any new allergies or adverse reactions No No Had a fall/change in ADL's that may No No increase risk of falls Signs or symptoms of abuse and/or No No neglect since last visit Have you been in the hospital since your No last visit? Has dressing in place as prescribed Yes Yes Yes Has compression in place as prescribed N/A Yes N/A Has offloadiing in place as prescribed N/A Yes N/A Experienced any changes in pain level or No Yes No management Left Footwear Regular Shoe Regular Shoe Right Footwear Regular Shoe Regular Shoe Pain Scale: 0-10 Numeric Is Patient Pain Free? Yes Yes Yes 05/16/22 09:18 WC - Today's Visit Information Type of service Follow-up Visit (Physician/[employer] ) Arrival Mode Ambulatory Patient Identification Verified (Name & Yes ) Height and Weight Body Mass Index (BMI) 22.3 BMI Classification Normal Vital Signs Temperature (97.8 F-99.1 F) 97.5 F L Temperature Source Temporal Pulse Rate (60-100) 77 Pulse Location Monitor Respiratory Rate (12-18) Respiratory rate source Oxygen Delivery Method Blood Pressure (90/60-120/80) 134/74 H Blood Pressure Mean (mm Hg) 94 Source Monitor Position Semi-Fowlers Blood Pressure Location Left Arm History Since Last Visit- (Skip if this is Patient's initial visit) Have you changed medications since your No last visit? Any new allergies or adverse reactions No Had a fall/change in ADL's that may No increase risk of falls Signs or symptoms of abuse and/or No neglect since last visit Have you been in the hospital since your No last visit? Has dressing in place as prescribed Yes Has compression in place as prescribed N/A Has offloadiing in place as prescribed N/A Experienced any changes in pain level or No management Left Footwear Regular Shoe Right Footwear Regular Shoe Pain Scale: 0-10 Numeric Is Patient Pain Free? Yes WC - Nurse 1 - General Ulcer Measurement Start: 04/25/22 08:52 Freq: Status: Active Protocol: Activity Type Activity Date Activity User E-sign Co-sign Detail Recorded Client Recorded Date Recorded By Document 04/25/22 08:55 KR [id number] 04/25/22 09:04 KR Document 05/02/22 09:34 MT [id number] 05/02/22 09:40 MT Document 05/09/22 08:29 KR [id number] 05/09/22 08:30 KR Document 05/16/22 09:18 KR [id number] 05/16/22 09:21 KR 04/25/22 05/02/22 05/09/22 08:55 09:34 08:29 Wound Center Nurse 1 #1 Chin -Current Size (cm) - Length 2.5 6 2.3 -Current Size (cm) - Width 5 2.6 4.6 -Current Size (cm) - Depth 0.1 0.4 0.2 -Total Square Cm 12.5 15.6 10.58 -Exudate Amt Small Medium Medium -Exudate Type Serosanguineous Serosanguineous Serosanguineous -Wound Margin Distinct, Thickened & Outline Rolled Under Attached -Granulation Amt Large (67-100%) Small (1-33%) Small (1-33%) -Granulation Quality Red Pale,[place] -Necrosis Amt None Present (0 Large (67-100%) Large (67-100%) %) -Necrotic Tissue Type Adherent Slough Adherent Slough -Texture (Candace-wound Skin Appearance) Assessed, Assessed Assessed, Scarring Scarring -Moisture (Candace-wound Skin Appearance) No Abnormality, Assessed No Abnormality, Assessed Assessed -Color (Candace-wound Skin Appearance) No Abnormality, Assessed No Abnormality, Assessed Assessed -Temperature (Candace-wound Skin No Abnormality No Abnormality No Abnormality Appearance) (Pt Warm) (Pt Warm) (Pt Warm) -Tenderness on Palpation (Candace-wound No No No Skin Appearance) -Ulcer Cleansing Rinsed/ Rinsed/ Rinsed/ Irrigated with Irrigated with Irrigated with Saline Saline Saline -Foul Odor after Cleansing No No No -Anesthetic Used 5% Lidocaine 4% Lidocaine 5% Lidocaine Gel Solution Gel Lower Limb Edema Present NA 05/16/22 09:18 Wound Center Nurse 1 #1 Chin -Current Size (cm) - Length 3.5 -Current Size (cm) - Width 4.5 -Current Size (cm) - Depth 0.2 -Total Square Cm 15.75 -Exudate Amt Medium -Exudate Type Serosanguineous -Wound Margin Distinct, Outline Attached -Granulation Amt None Present (0 %) -Granulation Quality -Necrosis Amt Large (67-100%) -Necrotic Tissue Type Adherent Slough -Texture (Candace-wound Skin Appearance) Assessed, Scarring -Moisture (Candace-wound Skin Appearance) No Abnormality, Assessed -Color (Candace-wound Skin Appearance) No Abnormality, Assessed -Temperature (Candace-wound Skin No Abnormality Appearance) (Pt Warm) -Tenderness on Palpation (Candace-wound No Skin Appearance) -Ulcer Cleansing Rinsed/ Irrigated with Saline -Foul Odor after Cleansing No -Anesthetic Used 5% Lidocaine Gel Lower Limb Edema Present WC - Nurse 2 - General Ulcer CM Notes Start: 04/25/22 08:52 Freq: Status: Active Protocol: Activity Type Activity Date Activity User E-sign Co-sign Detail Recorded Client Recorded Date Recorded By Document 04/25/22 09:49 PL [id number] 04/25/22 09:51 PL Document 05/02/22 09:43 MW [id number] 05/02/22 09:47 MW Document 05/09/22 08:38 MW [id number] 05/09/22 08:45 MW Document 05/16/22 09:35 MW [id number] 05/16/22 09:39 MW 04/25/22 05/02/22 05/09/22 09:49 09:43 08:38 Wound Center Nurse 2 #1 Chin -Time 09:11 09:44 08:38 -Correct Patient Yes Yes Yes -Correct Side, Site, Position Yes Yes Yes -Correct Procedure Yes Yes Yes -Procedure Performed Yes Yes Yes -Type of Procedure Debridement Debridement Debridement -Clinical Debridement Subcutaneous Subcutaneous Subcutaneous -Tissue Removed Subcutaneous Subcutaneous Subcutaneous -Post Debridement (cm) - Length 3.0 3.0 3.0 -Post Debridement (cm) - Width 5.0 4.5 4.0 -Post Debridement (cm) - Depth 0.1 0.3 0.5 -Total Square (Post) (cm) 15.00 13.50 12.00 -Area of Debridement (cm) - Length 3.0 3.0 3.0 -Area of Debridement (cm) - Width 5.0 4.5 4.0 -Total Square (Area) (cm) 15.00 13.50 12.00 -Tunneling No No No -Undermining/Tunneling No No No -Circular Undermining No No No -Wound/Ulcer Outcome Not Healed Not Healed Not Healed -Ulcer Cleansing Rinsed/ Rinsed/ Rinsed/ Irrigated with Irrigated with Irrigated with Saline Saline Saline -Foul Odor after Cleansing No No No -Bioengineered Tissue No No No -Bleeding Controlled with Pressure Pressure Pressure -Treatment Response Procedure Procedure Procedure Tolerated Well Tolerated Well Tolerated Well -Offloading No No -Debridement - Subq, 1st 20sq cm Yes Yes Yes Pain Scale: 0-10 Numeric Is Patient Pain Free? Yes Yes Yes 05/16/22 09:35 Wound Center Nurse 2 #1 Chin -Time 09:36 -Correct Patient Yes -Correct Side, Site, Position Yes -Correct Procedure Yes -Procedure Performed Yes -Type of Procedure Debridement -Clinical Debridement Subcutaneous -Tissue Removed Subcutaneous -Post Debridement (cm) - Length 3.6 -Post Debridement (cm) - Width 4.6 -Post Debridement (cm) - Depth 0.3 -Total Square (Post) (cm) 16.56 -Area of Debridement (cm) - Length 3.6 -Area of Debridement (cm) - Width 4.6 -Total Square (Area) (cm) 16.56 -Tunneling No -Undermining/Tunneling No -Circular Undermining No -Wound/Ulcer Outcome Not Healed -Ulcer Cleansing Rinsed/ Irrigated with Saline -Foul Odor after Cleansing No -Bioengineered Tissue No -Bleeding Controlled with Pressure -Treatment Response Procedure Tolerated Well -Offloading No -Debridement - Subq, 1st 20sq cm Yes Pain Scale: 0-10 Numeric Is Patient Pain Free? Yes - Nurse 3 - General Ulcer D/C NN Start: 04/25/22 08:52 Freq: Status: Active Protocol: Activity Type Activity Date Activity User E-sign Co-sign Detail Recorded Client Recorded Date Recorded By Document 04/25/22 09:21 [facility] [id number] 04/25/22 09:23 BMF Document 05/02/22 09:53 DL [id number] 05/02/22 09:54 DL Edit Result 05/02/22 09:53 DL (1) [id number] 05/02/22 09:55 DL Document 05/09/22 09:08 AK [id number] 05/09/22 09:09 AK (1) Notes: Pt to resume santyl at home => Pt to resume santyl at home. Dressing applied today by Keli Petit RN. 04/25/22 05/02/22 05/09/22 09:21 09:53 09:08 Wound Care Nurse 3 #1 Chin -Ulcer Cleansing Rinsed/ Rinsed/ Rinsed/ Irrigated with Irrigated with Irrigated with Saline Saline Saline -Foul Odor after Cleansing No No No -Negative Pressure Wound Therapy N/A -Primary Dressing Applied Aquacel Extra NonAdherent NonAdherent Contact Layer Contact Layer -Other Dressing hydrogel today santyl in clinic -Primary Dressing Covered/Secured with Dry Gauze, Dry Gauze, Dry Gauze, Secured with Secured with Secured with Tape Tape Tape -Other Covering DRSG PER [place] RENAL CASE MANAGER , PT TO USE SANTYL AT HOME -Aquacel Extra 1 Treatment Response Procedure Procedure Tolerated Well Tolerated Well Pain Scale: 0-10 Numeric Is Patient Pain Free? Yes Yes Yes WC - Visit Discharge Discharge Condition Stable Stable Stable Ambulatory Status Ambulatory Ambulatory Transportation Private Auto Private Auto Private Auto Accompanied by daughter Medication Reconcilliation completed & Yes provided to patient/care provider Clinical Summary of Care Provided Yes Notes: Pt to resume santyl at home. Dressing applied today by Keli Petit RN. Assessment/Plan Assessment/Plan (1) Head and neck cancer: CODE(S): C76.0 - Malignant neoplasm of head, face and neck (2) Delayed surgical wound healing: CODE(S): T81.89XA - Other complications of procedures, not elsewhere cla ssified, initial encounter QUALIFIERS: Encounter type: subsequent encounter Qualified Code(s): T81.89XD - Other complications of procedures, not elsewhere classified, subsequent encounter PLAN: Wash area with antibacterial soap apply Fibracol to wound base moistened then cover with Adaptic then 4 x 4 then cover with cushioned gauze 4 x 4's. Dressing is done daily Patient was started on Levaquin 500 mg daily x14 days Follow-up in 1 week
[2022-05-23 09:23] VITALS: BP 125/61; PULSE 67; TEMP 36.3; BMI 22.3
--- NOTE | 2022-05-23 11:29 | PN.PCM_ITS ---
History of Present Illness Date of Service: 05/23/22 Chief Complaint: Follow-up open surgical wound from cancer of the jaw. 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 Most recent surgery is November 07, 2021 reconstruction of the jaw using bone from his left lower leg but left the neck area open for healing. Progress of Wound: Did a week of Fibracol which helped loosen the slough that he keeps producing. Easily wipes away. Try Ruth this week to see if that helps with the slough producing. Measurements are smaller Subjective Subjective Daughter is here and she is the wound care person she is has no real questions at this time Objective Data Objective Data Patient is still taking his antibiotic therapy for the infection. We will change up to Ruth for a week and see if that helps loosen more slough and keep it shafting cleaner. Wound is starting to measure smaller and less depth Vital Signs: Vital Signs Temp Pulse Resp BP O2 Del Method 97.3 F L 67 18 125/61 H Room Air 05/23/22 09:23 05/23/22 09:23 05/02/22 09:34 05/23/22 09:23 05/02/22 09:34 Oxygen Delivery Method Room Air Weight: 130 lb Body Mass Index (BMI) 22.3 Lab / Micro Data Attestation: I reviewed the patient's lab results. Micro: Microbiology 05/09/22 08:45 Wound Abcess - Face Gram Stain - Final 05/09/22 08:45 Wound Abcess - Face Wound Culture - Final Proteus vulgaris Pseudomonas aeroginosa Meth. resistant Staph. aureus Gram positive miguel 05/09/22 08:45 Wound Abcess - Face Anaerobic Culture - Final No anaerobic bacteria isolated. Physical Exam Const oriented x3 General Appearance: cooperative Exam Limitations: no limitations HEENT normocephalic Head and Scalp: normal to inspection Face and Sinus: normal facial exam Nose: external nose normal General Ear: hearing grossly impaired External Ear: external ears normal Mouth: oral and palatal mucosa normal Eyes PERRL General Eye: normal appearance of both eyes Neck No full ROM General: normal visual inspection Resp normal respiratory effort Effort and Inspection: able to speak in complete sentences Auscultation: clear to auscultation bilaterally Cardio regular rate and regular rhythm Palpation: normal PMI Rate: regular rate Rhythm: regular rhythm GI Auscultation: normoactive bowel sounds Palpation: soft and no hepatosplenomegaly external exam normal Back/Spine Cervical Spine: cervical ROM normal Thoracic Spine / Upper Back: normal to inspection Lumbar Spine / Lower Back: normal to inspection Extremity normal to inspection General Extremity: normal exam except as noted Skin no rashes or lesions noted Skin Narrative: Surgical wound left jaw and neck. Tracheotomy in place Neuro oriented x3 Psych Appearance: grossly normal Speech: normal speech Thought Content: normal thought content Judgement: judgement good Debridement Note Debridement Note Wound debrided: Left jaw postoperative from cancer Laterality: Left Type of Debridement: Excisional debridement Anesthesia Used: 5% Lidocaine Gel Depth: in the subcutaneous layer and to bone Percentage of wound debrided: 100 Instrument Used: 3mm curette Tissue Removed: Fibrin and slough Severity: Fat Layer Exposed Amount of bleeding with debridement: Mild Bleeding Controlled with: Compression and gauze Patient tolerated procedure: Patient tolerated procedure well Post-Debridement Measurements and Additional Note: Post-Debridement Measurements/Treatment - Nurse 1 - General Ulcer Assessment Start: 04/25/22 08:52 Freq: Status: Active Protocol: BRANDAN Activity Type Activity Date Activity User E-sign Co-sign Detail Recorded Client Recorded Date Recorded By Document 04/25/22 08:55 [id number] 04/25/22 09:04 Document 05/02/22 09:34 AK [id number] 05/02/22 09:40 AK Document 05/09/22 08:29 [id number] 05/09/22 08:30 Document 05/16/22 09:18 KR [id number] 05/16/22 09:21 KR Document 05/23/22 09:23 [id number] 05/23/22 09:27 KR 04/25/22 05/02/22 05/09/22 08:55 09:34 08:29 - Today's Visit Information Type of service Initial Visit Follow-up Visit (Physician/AUTOMOTIVE PARTS SPECIALIST ) Arrival Mode Ambulatory Ambulatory Patient Identification Verified (Name & Yes Yes ) Height and Weight Body Mass Index (BMI) 22.3 22.3 22.3 BMI Classification Normal Normal Normal Vital Signs Temperature (97.8 F-99.1 F) 97.0 F L 97 F L 97.5 F L Temperature Source Oral Temporal Temporal Pulse Rate (60-100) 78 61 74 Pulse Location Monitor Monitor Monitor Respiratory Rate (12-18) 18 Respiratory rate source Observation Oxygen Delivery Method Room Air Blood Pressure (90/60-120/80) 146/66 H 113/65 139/65 H Blood Pressure Mean (mm Hg) 92 81 89 Source Monitor Monitor Monitor Position Semi-Fowlers Sitting Semi-Fowlers Blood Pressure Location Right Arm Left Arm Right Arm History Since Last Visit- (Skip if this is Patient's initial visit) Have you changed medications since your No No last visit? Any new allergies or adverse reactions No No Had a fall/change in ADL's that may No No increase risk of falls Signs or symptoms of abuse and/or No No neglect since last visit Have you been in the hospital since your No last visit? Has dressing in place as prescribed Yes Yes Yes Has compression in place as prescribed N/A Yes N/A Has offloadiing in place as prescribed N/A Yes N/A Experienced any changes in pain level or No Yes No management Left Footwear Regular Shoe Regular Shoe Right Footwear Regular Shoe Regular Shoe Pain Scale: 0-10 Numeric Is Patient Pain Free? Yes Yes Yes 05/16/22 05/23/22 09:18 09:23 WC - Today's Visit Information Type of service Follow-up Visit Follow-up Visit (Physician/AUTOMOTIVE PARTS SPECIALIST (Physician/AUTOMOTIVE PARTS SPECIALIST ) ) Arrival Mode Ambulatory Ambulatory Patient Identification Verified (Name & Yes Yes ) Height and Weight Body Mass Index (BMI) 22.3 22.3 BMI Classification Normal Normal Vital Signs Temperature (97.8 F-99.1 F) 97.5 F L 97.3 F L Temperature Source Temporal Temporal Pulse Rate (60-100) 77 67 Pulse Location Monitor Monitor Respiratory Rate (12-18) Respiratory rate source Oxygen Delivery Method Blood Pressure (90/60-120/80) 134/74 H 125/61 H Blood Pressure Mean (mm Hg) 94 82 Source Monitor Monitor Position Semi-Fowlers Semi-Fowlers Blood Pressure Location Left Arm Left Arm History Since Last Visit- (Skip if this is Patient's initial visit) Have you changed medications since your No No last visit? Any new allergies or adverse reactions No No Had a fall/change in ADL's that may No No increase risk of falls Signs or symptoms of abuse and/or No No neglect since last visit Have you been in the hospital since your No No last visit? Has dressing in place as prescribed Yes Yes Has compression in place as prescribed N/A N/A Has offloadiing in place as prescribed N/A N/A Experienced any changes in pain level or No No management Left Footwear Regular Shoe Regular Shoe Right Footwear Regular Shoe Regular Shoe Pain Scale: 0-10 Numeric Is Patient Pain Free? Yes Yes WC - Nurse 1 - General Ulcer Measurement Start: 04/25/22 08:52 Freq: Status: Active Protocol: Activity Type Activity Date Activity User E-sign Co-sign Detail Recorded Client Recorded Date Recorded By Document 04/25/22 08:55 KR [id number] 04/25/22 09:04 KR Document 05/02/22 09:34 MT [id number] 05/02/22 09:40 MT Document 05/09/22 08:29 KR [id number] 05/09/22 08:30 KR Document 05/16/22 09:18 KR [id number] 05/16/22 09:21 KR Document 05/23/22 09:23 KR [id number] 05/23/22 09:27 KR 04/25/22 05/02/22 05/09/22 08:55 09:34 08:29 Wound Center Nurse 1 #1 Chin -Current Size (cm) - Length 2.5 6 2.3 -Current Size (cm) - Width 5 2.6 4.6 -Current Size (cm) - Depth 0.1 0.4 0.2 -Total Square Cm 12.5 15.6 10.58 -Exudate Amt Small Medium Medium -Exudate Type Serosanguineous Serosanguineous Serosanguineous -Wound Margin Distinct, Thickened & Outline Rolled Under Attached -Granulation Amt Large (67-100%) Small (1-33%) Small (1-33%) -Granulation Quality Red Pale,Arnold Line Arnold Line -Necrosis Amt None Present (0 Large (67-100%) Large (67-100%) %) -Necrotic Tissue Type Adherent Slough Adherent Slough -Texture (Candace-wound Skin Appearance) Assessed, Assessed Assessed, Scarring Scarring -Moisture (Candace-wound Skin Appearance) No Abnormality, Assessed No Abnormality, Assessed Assessed -Color (Candace-wound Skin Appearance) No Abnormality, Assessed No Abnormality, Assessed Assessed -Temperature (Candace-wound Skin No Abnormality No Abnormality No Abnormality Appearance) (Pt Warm) (Pt Warm) (Pt Warm) -Tenderness on Palpation (Candace-wound No No No Skin Appearance) -Ulcer Cleansing Rinsed/ Rinsed/ Rinsed/ Irrigated with Irrigated with Irrigated with Saline Saline Saline -Foul Odor after Cleansing No No No -Anesthetic Used 5% Lidocaine 4% Lidocaine 5% Lidocaine Gel Solution Gel Lower Limb Edema Present NA 05/16/22 05/23/22 09:18 09:23 Wound Center Nurse 1 #1 Chin -Current Size (cm) - Length 3.5 3.3 -Current Size (cm) - Width 4.5 1 -Current Size (cm) - Depth 0.2 0.3 -Total Square Cm 15.75 3.3 -Exudate Amt Medium Large -Exudate Type Serosanguineous Yellow/Green -Wound Margin Distinct, Distinct, Outline Outline Attached Attached -Granulation Amt None Present (0 None Present (0 %) %) -Granulation Quality -Necrosis Amt Large (67-100%) Large (67-100%) -Necrotic Tissue Type Adherent Slough Adherent Slough -Texture (Candace-wound Skin Appearance) Assessed, Assessed, Scarring Scarring -Moisture (Candace-wound Skin Appearance) No Abnormality, No Abnormality, Assessed Assessed -Color (Candace-wound Skin Appearance) No Abnormality, No Abnormality, Assessed Assessed -Temperature (Candace-wound Skin No Abnormality No Abnormality Appearance) (Pt Warm) (Pt Warm) -Tenderness on Palpation (Candace-wound No No Skin Appearance) -Ulcer Cleansing Rinsed/ Rinsed/ Irrigated with Irrigated with Saline Saline -Foul Odor after Cleansing No No -Anesthetic Used 5% Lidocaine 5% Lidocaine Gel Gel Lower Limb Edema Present WC - Nurse 2 - General Ulcer CM Notes Start: 04/25/22 08:52 Freq: Status: Active Protocol: Activity Type Activity Date Activity User E-sign Co-sign Detail Recorded Client Recorded Date Recorded By Document 04/25/22 09:49 PL [id number] 04/25/22 09:51 PL Document 05/02/22 09:43 MW [id number] 05/02/22 09:47 MW Document 05/09/22 08:38 MW [id number] 05/09/22 08:45 MW Document 05/16/22 09:35 MW [id number] 05/16/22 09:39 MW Document 05/23/22 09:50 MW [id number] 05/23/22 09:54 MW 04/25/22 05/02/22 05/09/22 09:49 09:43 08:38 Wound Center Nurse 2 #1 Chin -Time 09:11 09:44 08:38 -Correct Patient Yes Yes Yes -Correct Side, Site, Position Yes Yes Yes -Correct Procedure Yes Yes Yes -Procedure Performed Yes Yes Yes -Type of Procedure Debridement Debridement Debridement -Clinical Debridement Subcutaneous Subcutaneous Subcutaneous -Tissue Removed Subcutaneous Subcutaneous Subcutaneous -Post Debridement (cm) - Length 3.0 3.0 3.0 -Post Debridement (cm) - Width 5.0 4.5 4.0 -Post Debridement (cm) - Depth 0.1 0.3 0.5 -Total Square (Post) (cm) 15.00 13.50 12.00 -Area of Debridement (cm) - Length 3.0 3.0 3.0 -Area of Debridement (cm) - Width 5.0 4.5 4.0 -Total Square (Area) (cm) 15.00 13.50 12.00 -Tunneling No No No -Undermining/Tunneling No No No -Circular Undermining No No No -Wound/Ulcer Outcome Not Healed Not Healed Not Healed -Ulcer Cleansing Rinsed/ Rinsed/ Rinsed/ Irrigated with Irrigated with Irrigated with Saline Saline Saline -Foul Odor after Cleansing No No No -Bioengineered Tissue No No No -Bleeding Controlled with Pressure Pressure Pressure -Treatment Response Procedure Procedure Procedure Tolerated Well Tolerated Well Tolerated Well -Offloading No No -Debridement - Subq, 1st 20sq cm Yes Yes Yes Pain Scale: 0-10 Numeric Is Patient Pain Free? Yes Yes Yes 05/16/22 05/23/22 09:35 09:50 Wound Center Nurse 2 #1 Chin -Time 09:36 09:51 -Correct Patient Yes Yes -Correct Side, Site, Position Yes Yes -Correct Procedure Yes Yes -Procedure Performed Yes Yes -Type of Procedure Debridement Debridement -Clinical Debridement Subcutaneous Subcutaneous -Tissue Removed Subcutaneous Subcutaneous -Post Debridement (cm) - Length 3.6 3.0 -Post Debridement (cm) - Width 4.6 4.5 -Post Debridement (cm) - Depth 0.3 0.3 -Total Square (Post) (cm) 16.56 13.50 -Area of Debridement (cm) - Length 3.6 3.0 -Area of Debridement (cm) - Width 4.6 4.5 -Total Square (Area) (cm) 16.56 13.50 -Tunneling No No -Undermining/Tunneling No No -Circular Undermining No No -Wound/Ulcer Outcome Not Healed Not Healed -Ulcer Cleansing Rinsed/ Rinsed/ Irrigated with Irrigated with Saline Saline -Foul Odor after Cleansing No No -Bioengineered Tissue No No -Bleeding Controlled with Pressure Pressure -Treatment Response Procedure Procedure Tolerated Well Tolerated Well -Offloading No No -Debridement - Subq, 1st 20sq cm Yes Yes Pain Scale: 0-10 Numeric Is Patient Pain Free? Yes Yes - Nurse 3 - General Ulcer D/C NN Start: 04/25/22 08:52 Freq: Status: Active Protocol: Activity Type Activity Date Activity User E-sign Co-sign Detail Recorded Client Recorded Date Recorded By Document 04/25/22 09:21 [facility] [id number] 04/25/22 09:23 [facility] Document 05/02/22 09:53 DL [id number] 05/02/22 09:54 DL Edit Result 05/02/22 09:53 DL (1) [id number] 05/02/22 09:55 DL Document 05/09/22 09:08 AK [id number] 05/09/22 09:09 AK Document 05/23/22 10:06 KR [id number] 05/23/22 10:07 KR (1) Notes: Pt to resume santyl at home => Pt to resume santyl at home. Dressing applied today by Keli Petit RN. 04/25/22 05/02/22 05/09/22 09:21 09:53 09:08 Wound Care Nurse 3 #1 Chin -Ulcer Cleansing Rinsed/ Rinsed/ Rinsed/ Irrigated with Irrigated with Irrigated with Saline Saline Saline -Foul Odor after Cleansing No No No -Negative Pressure Wound Therapy N/A -Primary Dressing Applied Aquacel Extra NonAdherent NonAdherent Contact Layer Contact Layer -Other Dressing hydrogel today santyl in clinic -Primary Dressing Covered/Secured with Dry Gauze, Dry Gauze, Dry Gauze, Secured with Secured with Secured with Tape Tape Tape -Other Covering DRSG PER [place] TOPOGRAPHICAL ENGINEER , PT TO USE SANTYL AT HOME -Aquacel Extra 1 -Promogran Ruth Matter Treatment Response Procedure Procedure Tolerated Well Tolerated Well Pain Scale: 0-10 Numeric Is Patient Pain Free? Yes Yes Yes WC - Visit Discharge Discharge Condition Stable Stable Stable Ambulatory Status Ambulatory Ambulatory Transportation Private Auto Private Auto Private Auto Accompanied by daughter Medication Reconcilliation completed & Yes provided to patient/care provider Clinical Summary of Care Provided Yes Notes: Pt to resume santyl at home. Dressing applied today by Keli Petit RN. 05/23/22 10:06 Wound Care Nurse 3 #1 Chin -Ulcer Cleansing Rinsed/ Irrigated with Saline -Foul Odor after Cleansing -Negative Pressure Wound Therapy -Primary Dressing Applied NonAdherent Contact Layer, Promogran Ruth Matter -Other Dressing -Primary Dressing Covered/Secured with Dry Gauze, Secured with Tape -Other Covering -Aquacel Extra -Promogran Ruth Matter 2 Treatment Response Pain Scale: 0-10 Numeric Is Patient Pain Free? Yes WC - Visit Discharge Discharge Condition Stable Ambulatory Status Ambulatory Transportation Private Auto Accompanied by daughter Medication Reconcilliation completed & provided to patient/care provider Clinical Summary of Care Provided Notes: Assessment/Plan Assessment/Plan (1) Head and neck cancer: CODE(S): C76.0 - Malignant neoplasm of head, face and neck (2) Delayed surgical wound healing: CODE(S): T81.89XA - Other complications of procedures, not elsewhere classified, initial encounter QUALIFIERS: Encounter type: subsequent encounter Qualified Code(s): T81.89XD - Other complications of procedures, not elsewhere classified, subsequent encounter PLAN: Wash area with antibacterial soap apply Ruth to wound base moistened then cover with Adaptic then 4 x 4 then cover with cushioned gauze 4 x 4's. Dressing is done daily Patient was started on Levaquin 500 mg daily x14 days Follow-up in 1 week
== END 2022-05-23 23:59 | disposition home or self-care (01) ==
LOC: WC 09:15
PROVIDERS: PCP Nurse Practitioner; Visit Provider Nurse Practitioner
DX: T81.89XD Other complications of procedures, not elsewhere classified, subsequent encounter (principal); Z93.0 Tracheostomy status; C76.0 Malignant neoplasm of head, face and neck; I10 Essential (primary) hypertension; K21.9 Gastro-esophageal reflux disease without esophagitis; Z79.890 Hormone replacement therapy; Z79.899 Other long term (current) drug therapy; Z92.21 Personal history of antineoplastic chemotherapy; Z85.89 Personal history of malignant neoplasm of other organs and systems; Z87.891 Personal history of nicotine dependence; Z92.3 Personal history of irradiation; Y83.8 Other surgical procedures as the cause of abnormal reaction of the patient, or of later complication, without mention of misadventure at the time of the procedure
CPT/HCPCS: 11042; 36415; 80053; 83735; 84100; 85025; 87070; 87075; 87077; 87186; 87205; 99213; G0463

== ENCOUNTER → 2022-06-15 | Outpatient (CLI) | payer OTHER, SELFPAY ==
[2022-01-31 09:09] VITALS: BMI 22.6
--- NOTE | 2022-06-15 13:50 | SP.MBSS_ITS ---
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 Medical History: The pt is a 61-year-old male diagnosed with clinical stage NOREEN (cTx cN2b M0) p16 negative SCC of unknown primary with left neck adenopathy in level 2-[address] neck and chest (12/17/2018), ultrasound-guided FNA of the left neck mass (12/22/2018), PET scan (01/05/2019), triple endoscopy with targeted left tonsillectomy (01/30/2019). From 02/10/2019 ? 03/25/2019 he received definitive chemoradiation therapy. 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 11/07/2021: PEG tube placement, tracheostomy, composite resection of oral cavity, excision of skin and soft tissue, segmental mandibulectomy, right selective neck dissection and left neck exploration for vessels. Reconstruction was thigh free flap and had complex neck closure with split thickness skin graft. Trach was removed following surgery on 12/05/2021 the trach re-inserted due to difficulty breathing when lying flat. Pt has followed with OP ST during and after radiation treatment. Most recent MBSS 04/13/22 recommended soft and bite size textures / thin liquids with strict aspiration precautions and GI consult. The patient and his daughter since have reported increased coughing with liquids with mucous from trach sometimes containing some of his thin drinks. Additionally, he is only able to consume purees due to increased difficulty swallowing solids. [facility] DRIVER recommended r epeat MBSS to reassess swallow function and aspiration risk due to pt reporting increased s/s of aspiration and difficulty swallowing. Current Diet Ordered: Puree textures / Thin liquids Dentition: Edentulous Mental Status: WNL Respiratory Status: Oxygenating on Room Air - trach - Penetration-Aspiration Scale Penetration-Aspiration Scale: OBJECTIVE ASSESSMENT OF SWALLOW FUNCTION (QUANTITATIVE ? PER TRIAL): PENETRATION / ASPIRATION SCALE (SNEIOR): 1 = does not enter airway 2 = enters airway/above vocal folds/ejected 3 = enters airway/above vocal folds/not ejected 4 = enters airway/contacts vocal folds/ejected 5 = enters airway/contacts vocal folds/not ejected 6 = enters airway/below vocal folds/ejected 7 = enters airway/below vocal folds/not ejected despite effort 8 = enters airway/below vocal folds/no effort VIDEOFLOROSCOPIC SCALE SCORE (SENIOR): Grade I = aspiration of material that has penetrated into the laryngeal vestibule, intact cough reflex Grade II = aspiration < 10 % of the bolus, intact cough reflex Grade III = aspiration of < 10 % of the bolus, reduced cough reflex or aspiration of > 10 % of the bolus, intact cough reflex Grade IV = aspiration of > 10 % of the bolus, reduced cough reflex - Penetration-Aspiration Scale Score Thin Liquid via teaspoon Result: 1= does not enter airway Thin Liquid via teaspoon Trial 2 Result: 1= does not enter airway Thin Liquid via small single sip from cup Result: 1= does not enter airway Thin Liquid via large single sip from cup Result: 5= enters airways/contacts vocal folds/not ejected - Cannot definitively rule out aspiration. Difficult to see below the level of the vocal folds due to patient's body habitus. Delayed coughing was observed with this trial, which was ineffective in clearing trace residues lining the laryngeal vestibule. [place] Thick Liquid via small single sip from cup Result: 1= does not enter airway Honey Thick Liquid via small single sip from cup Result: 1= does not enter airway Pudding via teaspoon Result: 1= does not enter airway Thin Liquid via teaspoon Trial 3 Result: 1= does not enter airway Thin Liquid via teaspoon Chin tuck Result: 1= does not enter airway - Oral Phase Labial Seal: Escape progressing to mid-chin Tongue Control During Bolus Hold: Posterior escape of less than half of bolus Bolus Transport/Lingual Motion: Slowed tongue motion Oral Residue: Residue collection on oral structures - Pharyngeal Phase Initiation of Pharyngeal Swallow: Bolus head in pyriforms Soft Palate Elevation: No bolus between soft palate and pharyngeal wall Laryngeal Elevation: Partial superior movement thyroid cart/partial apprx aryt- epig petiole Anterior Hyoid Excursion: No anterior movement Epiglottic Movement: Complete inversion Laryngeal Vestibule Closure at Height of Swallow: Incomplete; narrow column of air/contrast in laryngeal vestibule Pharyngeal Stripping Wave: Absent Pharyngoesophageal Segment Opening: Parital distension and partial duration; parital obstruction of flow Tongue Base Retraction: Wide column of contrast between tongue base & post. pharyngeal wall - pudding Pharyngeal Residue: Collection of residue within or on pharyngeal structures - Treatment Strategies Effects of treatment strategies attemped:: Liquid wash = somewhat effective in clearing pudding residue. Multiple swallow = effective in clearing thin and nectar liquids from pharynx, somewhat effective in clearing honey thick and pudding residue. Chin tuck = ineffective. - Diagnosis/Impression Diagnosis: Moderate-severe oropharyngeal phase dysphagia (R13.12) Impression: The oral phase is primarily marked by... -Decreased bolus control with premature posterior loss of <1/2 of thin liquid bolus to the pyriforms prior to swallow onset. Difficult to fully determine swallow onset due to absent anterior hyoid excursion. Swallow onset determined by upward movement of the arytenoid cartilages towards the epiglottic petiole. -Did not assess mastication abilities to due concerns for choking secondary to decrease jaw closure due to edema, as well as difficulty with pharyngeal clearance of thicker viscosities described below. -Trace-mild oral residue, which the patient effectively cleared with use of multiple swallows. The pharyngeal phase is primarily marked by... -Decreased airway closure due to ABSENT anterior hyoid excursion and decreased laryngeal elevation. The patient did achieve full epiglottic inversion during the swallow. -Mild-moderate pharyngeal residues in the vallecula and pyriforms secondary to decreased tongue base retraction, ABSENT pharyngeal stripping wave, and decreased UES opening and duration. He is at increased risk for post prandial aspiration due to extent of pharyngeal residues, which worsened as viscosity increased. Liquid washes and multiple swallows were somewhat effective in clearing pudding residue from the pharynx. -Laryngeal penetration to the vocal folds of large sip of thin liquids by cup, which did not fully eject from the larynx. Reflexive cough did not clear trace liquid residue lining the laryngeal vestibule. No aspiration observed during the study; however, the [facility] DRIVER could not definitively rule out aspiration of large sip of thin liquids via cup due to pt's body habitus. - Recommendations Diet: Puree Textures - thinned, moist purees (must pass spoon-tilt test), Thin Liquids Comment: [place] Free Water Protocol Compensatory Strategies: Small Bites, Small Sips, Liquid by Teaspoon Only, Slow Rate, Multiple Swallows - 3-5 swallows per bite/sip, Alternate bites/solids and sips/liquids, Sitting upright, Remain sitting upright for 30 minutes after PO intake Supervision: Assist as needed - family to assist pt with cues to follow through with strategies as needed Recommend Repeat Modified Barium Swallow: Yes Comment: Repeat MBS study in 6-12 months to monitor swallow function as the patient is at risk for worsening dysphagia and aspiration risk s/p radiation treatment. Need for Skilled Speech Therapy Services: Yes Comment: Will recommend the patient for continued outpatient dysphagia therapy to address deficits in oropharyngeal swallow function. Will recommend the patient for continued oropharyngeal strengthening to improve tongue base retraction, laryngeal elevation, hyoid excursion, pharyngeal contraction, and duration of UES opening. The patient would benefit from thorough education regarding diet recommendations, [place] Free Water Protocol ([facility] DRIVER provided pt and daughter handout after MBSS), and recommended compensatory strategies to decrease aspiration risk. Due to healing neck wound beneath L jaw line and on anterior upper L neck, the patient is NOT appropriate for neck ROM exercises or myofascial release to promote improved soft tissue mobility and swallowing mechanism ROM at this time. Education Completed: 1. Described result of evaluation., 4. Family/caregivers understand evaluation & agree w/ goals & tx plan., 7. Pt requires further education on strategies & risks. - Status Active ST Patient: Active - Contact Information [facility] Speech Therapy:: Latosha Boyer M.A. [facility] Speech-Language Pathologist [facility] [address] [place] [address] [email or web address] [phone] 06/15/22 14:26
== END | disposition home or self-care (01) ==
LOC: RAD 09:26
PROVIDERS: PCP Nurse Practitioner; Referring Provider Internal Medicine Hematology & Oncology; Visit Provider Internal Medicine Hematology & Oncology
DX: C41.1 Malignant neoplasm of mandible (principal)
CPT/HCPCS: 74230; 92611

== ENCOUNTER 2022-06-20 08:15 | Outpatient (RCR) | payer OTHER, SELFPAY ==
[2022-01-31 09:09] VITALS: BMI 22.6
[2022-05-24 00:05] VITALS: BP 125/61; PULSE 67; RESP 18; TEMP 36.3; BMI 22.3
[2022-05-30 10:28] VITALS: BP 124/70; PULSE 69; TEMP 35.9; BMI 22.3
--- NOTE | 2022-05-30 11:50 | PCM.WC.PN ---
History of Present Illness Date of Service: 05/30/22 Chief Complaint: Follow-up open surgical wound from cancer of the jaw. 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 Most recent surgery is November 07, 2021 reconstruction of the jaw using bone from his left lower leg but left the neck area open for healing. Progress of Wound: We started using Ruth last week and has made a big difference with the slough is much more easier to pull off and debride. Also its keeping a shield cleaner and there is less slough developing. Cultures were positive patient is on antibiotics and doing well Subjective Subjective Patient is tolerating his antibiotic therapy and overall the measurements are better Objective Data Objective Data Measurements are smaller less inflammation around the wound. Patient is tolerating the Ruth very well and it seems to be helping with clearing out some of the slough. Vital Signs: Vital Signs Temp Pulse Resp BP 96.6 F L 69 18 124/70 H 05/30/22 10:28 05/30/22 10:28 05/24/22 00:05 05/30/22 10:28 Weight: 130 lb Body Mass Index (BMI) 22.3 Lab / Micro Data Attestation: I reviewed the patient's lab results. Physical Exam Narrative ECOG 1 Hard of hearing Const alert, oriented x3 and no apparent distress General Appearance: cooperative and comfortable HEENT normocephalic HEENT Narrative: Reconstruction of the lower face, soft tissue edema Mouth: No thrush Eyes General Eye: normal appearance of both eyes Conjunctiva: conjunctiva normal Sclera: sclera normal Neck no lymphadenopathy and no JVD Neck Narrative: Postoperative changes and flap. Wound is covered with surgical dressing General: tracheostomy present Lymph Lymphatic: no lymphadenopathy noted Chest Chest: symmetrical chest wall rise Resp Auscultation: diminished lung sounds bilateral and diffuse Cardio regular rate and regular rhythm Jugular Venous Distention: Negative for JVD GI soft to palpation, non-tender and non-distended; Negative for hepatosplenomegaly GI Narrative: PEG tube no CVA tenderness Back/Spine no thoracic nor lumbar tenderness Extremity General Extremity: Negative for clubbing, cyanosis or edema Skin no rashes or lesions noted Neuro oriented x3, CN's II-XII intact bilaterally and moves all extremities Neuro Narrative: Bilateral symmetric wasting of first interosseous muscles. Coordination / Balance: [id number] test normal Speech: speech abnormal Gait (Neuro): normal gait Psych mental status grossly normal, thought process normal, cooperative and affect normal Debridement Note Debridement Note Wound debrided: Left jaw surgical wound Type of Debridement: Excisional debridement Anesthesia Used: 5% Lidocaine Gel Depth: in the subcutaneous layer and to muscle Percentage of wound debrided: 100 Instrument Used: 3mm curette, #15 blade and Forceps Tissue Removed: Slough some fibrin Severity: Fat Layer Exposed Amount of bleeding with debridement: Mild Bleeding Controlled with: Compression and gauze Patient tolerated procedure: Patient tolerated procedure well Post-Debridement Measurements and Additional Note: Post-Debridement Measurements/Treatment - Nurse 1 - General Ulcer Assessment Start: 05/30/22 08:21 Freq: Status: Active Protocol: BRANDAN Activity Type Activity Date Activity User E-sign Co-sign Detail Recorded Client Recorded Date Recorded By Document 05/30/22 10:28 SHANTELL [id number] 05/30/22 10:31 SHANTELL 05/30/22 10:28 WC - Today's Visit Information Type of service Follow-up 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 Any new allergies or adverse reactions No Had a fall/change in ADL's that may No increase risk of falls Signs or symptoms of abuse and/or No neglect since last visit Have you been in the hospital since your No last visit? Has dressing in place as prescribed Yes Has compression in place as prescribed N/A Has offloadiing in place as prescribed N/A Experienced any changes in pain level or No management Left Footwear Regular Shoe Right Footwear Regular Shoe Pain Scale: 0-10 Numeric Is Patient Pain Free? Yes - Nurse 1 - General Ulcer Measurement Start: 05/30/22 08:21 Freq: Status: Active Protocol: Activity Type Activity Date Activity User E-sign Co-sign Detail Recorded Client Recorded Date Recorded By Document 05/30/22 10:28 AK [id number] 05/30/22 10:31 AK 05/30/22 10:28 Wound Center Nurse 1 #1 Chin -Combined with other wound No -Current Size (cm) - Length 3 -Current Size (cm) - Width 3.6 -Current Size (cm) - Depth 0.2 -Total Square Cm 10.8 -Photo Taken No -Epithelialization None Present -Tunneling No -Undermining/Tunneling No -Circular Undermining No -Change in Wound Grade/Stage No -Exudate Amt Large -Exudate Type Yellow/Green -Wound Margin Distinct, Outline Attached -Granulation Amt Medium (34-66%) -Slough/Fibrin Yes -Necrosis Amt Large (67-100%) -Necrotic Tissue Type Adherent Slough -Structure Exposed N/A -Texture (Candace-wound Skin Appearance) No Abnormality, Assessed -Moisture (Candace-wound Skin Appearance) No Abnormality, Assessed -Color (Candace-wound Skin Appearance) No Abnormality, Assessed -Temperature (Candace-wound Skin No Abnormality Appearance) (Pt Warm) -Tenderness on Palpation (Candace-wound No Skin Appearance) -Ulcer Cleansing Rinsed/ Irrigated with Saline -Foul Odor after Cleansing No -Anesthetic Used 4% Lidocaine Solution WC - Nurse 2 - General Ulcer CM Notes Start: 05/30/22 08:21 Freq: Status: Active Protocol: Activity Type Activity Date Activity User E-sign Co-sign Detail Recorded Client Recorded Date Recorded By Document 05/30/22 08:22 MW [id number] 05/30/22 08:26 MW 05/30/22 08:22 Wound Center Nurse 2 -Time 08:22 -Correct Patient Yes -Correct Side, Site, Position Yes -Correct Procedure Yes -Procedure Performed Yes -Type of Procedure Debridement -Clinical Debridement Subcutaneous -Tissue Removed Subcutaneous -Post Debridement (cm) - Length 3.0 -Post Debridement (cm) - Width 4.2 -Post Debridement (cm) - Depth 0.3 -Total Square (Post) (cm) 12.60 -Area of Debridement (cm) - Length 3.0 -Area of Debridement (cm) - Width 4.2 -Total Square (Area) (cm) 12.60 -Tunneling No -Undermining/Tunneling No -Circular Undermining No -Wound/Ulcer Outcome Not Healed -Ulcer Cleansing Rinsed/ Irrigated with Saline -Foul Odor after Cleansing No -Bioengineered Tissue No -Bleeding Controlled with Pressure -Treatment Response Procedure Tolerated Well -Offloading No -Debridement - Subq, 1st 20sq cm Yes Pain Scale: 0-10 Numeric Is Patient Pain Free? Yes WC - Nurse 3 - General Ulcer D/C NN Start: 05/30/22 08:21 Freq: Status: Active Protocol: Activity Type Activity Date Activity User E-sign Co-sign Detail Recorded Client Recorded Date Recorded By Document 05/30/22 08:36 PALMIRA [id number] 05/30/22 08:37 PALMIRA 05/30/22 08:36 Wound Care Nurse 3 #1 Chin -Ulcer Cleansing Rinsed/ Irrigated with Saline -Primary Dressing Applied NonAdherent Contact Layer, Promogran Ruth Matter -Primary Dressing Covered/Secured with Dry Gauze, Secured with Tape -Promogran Ruth Matter 1 Pain Scale: 0-10 Numeric Is Patient Pain Free? Yes WC - Visit Discharge Discharge Condition Stable Ambulatory Status Ambulatory Transportation Private Auto Accompanied by daughter Assessment/Plan Assessment/Plan (1) Head and neck cancer: CODE(S): C76.0 - Malignant neoplasm of head, face and neck (2) Delayed surgical wound healing: CODE(S): T81.89XA - Other complications of procedures, not elsewhere classified, initial encounter QUALIFIERS: Encounter type: subsequent encounter Qualified Code(s): T81.89XD - Other complications of procedures, not elsewhere classified, subsequent encounter PLAN: Wash area with antibacterial soap apply Ruth to wound base moistened then cover with Adaptic then 4 x 4 then cover with cushioned gauze 4 x 4's. Dressing is done daily Patient to finish Levaquin 500 mg daily x14 days Follow-up in 1 week
[2022-06-06 08:23] VITALS: BP 135/73; PULSE 72; RESP 16; TEMP 36.6; BMI 22.3
--- NOTE | 2022-06-06 12:06 | PCM.WC.PN ---
History of Present Illness Date of Service: 06/06/22 Chief Complaint: Follow-up open surgical wound from cancer of the jaw. 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 Most recent surgery is November 07, 2021 reconstruction of the jaw using bone from his left lower leg but left the neck area open for healing. Progress of Wound: We started using Ruth last week and has made a big difference with the slough is much more easier to pull off and debride. Cultures were positive patient is on antibiotics and doing well Wound measurements slightly smaller we will apply for TheraSkin for next week. Subjective Subjective Patient is happy with progress, so is daughter that is doing the dressing changes Objective Data Objective Data Again using Ruth that lives more slough off easier to debride measurements are slightly smaller we will attempt to try using TheraSkin in the future to start filling in. We did pull out a clip and some cellophane out of the wound. Vital Signs: Vital Signs Temp Pulse Resp BP O2 Del Method 97.8 F 72 16 135/73 H Room Air 06/06/22 08:23 06/06/22 08:23 06/06/22 08:23 06/06/22 08:23 06/06/22 08:23 Oxygen Delivery Method Room Air Weight: 130 lb Body Mass Index (BMI) 22.3 Physical Exam Narrative ECOG 1 Hard of hearing Const alert, oriented x3 and no apparent distress General Appearance: cooperative and comfortable HEENT normocephalic HEENT Narrative: Reconstruction of the lower face, soft tissue edema Mouth: No thrush Eyes General Eye: normal appearance of both eyes Conjunctiva: conjunctiva normal Sclera: sclera normal Neck no lymphadenopathy and no JVD Neck Narrative: Postoperative changes and flap. Wound is covered with surgical dressing General: tracheostomy present Lymph Lymphatic: no lymphadenopathy noted Chest Chest: symmetrical chest wall rise Resp Auscultation: diminished lung sounds bilateral and diffuse Cardio regular rate and regular rhythm Jugular Venous Distention: Negative for JVD GI soft to palpation, non-tender and non-distended; Negative for hepatosplenomegaly GI Narrative: PEG tube no CVA tenderness Back/Spine no thoracic nor lumbar tenderness Extremity General Extremity: Negative for clubbing, cyanosis or edema Skin no rashes or lesions noted Neuro oriented x3, CN's II-XII intact bilaterally and moves all extremities Neuro Narrative: Bilateral symmetric wasting of first interosseous muscles. Coordination / Balance: [id number] test normal Speech: speech abnormal Gait (Neuro): normal gait Psych mental status grossly normal, thought process normal, cooperative and affect normal Debridement Note Debridement Note Wound debrided: Left jaw area from post surgery Laterality: Left Type of Debridement: Excisional debridement Anesthesia Used: 5% Lidocaine Gel Depth: to muscle Percentage of wound debrided: 100 Instrument Used: 7mm curette, #15 blade and Forceps Tissue Removed: Devitalized tissue and fibrin Severity: Fat Layer Exposed Amount of bleeding with debridement: Mild Bleeding Controlled with: Compression and gauze Patient tolerated procedure: Patient tolerated procedure well Post-Debridement Measurements and Additional Note: Post-Debridement Measurements/Treatment - Nurse 1 - General Ulcer Assessment Start: 05/30/22 08:21 Freq: Status: Active Protocol: .[place] Activity Type Activity Date Activity User E-sign Co-sign Detail Recorded Client Recorded Date Recorded By Document 05/30/22 10:28 MS [id number] 05/30/22 10:31 MS Document 06/06/22 08:23 [facility] [id number] 06/06/22 08:28 [facility] 05/30/22 06/06/22 10:28 08:23 - Today's Visit Information Type of service Follow-up Visit Follow-up Visit (Physician/SHOVEL LOADER OPERATOR (Physician/SHOVEL LOADER OPERATOR ) ) Arrival Mode Ambulatory Ambulatory Transfer Assistance None Accompanied by daughter Patient Identification Verified (Name & No Yes ) Patient Requires Transmission-Based No No Precautions Safety Precautions NA Height and Weight Body Mass Index (BMI) 22.3 22.3 BMI Classification Normal Normal Vital Signs Temperature (97.8 F-99.1 F) 96.6 F L 97.8 F Temperature Source Temporal Temporal Pulse Rate (60-100) 69 72 Pulse Location Monitor Monitor Respiratory Rate (12-18) 16 Respiratory rate source Observation Oxygen Delivery Method Room Air Blood Pressure (90/60-120/80) 124/70 H 135/73 H Blood Pressure Mean (mm Hg) 88 93 Source Monitor Monitor Position Sitting Blood Pressure Location Left Arm History Since Last Visit- (Skip if this is Patient's initial visit) Have you changed medications since your No No last visit? Any new allergies or adverse reactions No No Had a fall/change in ADL's that may No No increase risk of falls Signs or symptoms of abuse and/or No No neglect since last visit Have you been in the hospital since your No No last visit? Has dressing in place as prescribed Yes Yes Has compression in place as prescribed N/A N/A Has offloadiing in place as prescribed N/A N/A Experienced any changes in pain level or No No management Left Footwear Regular Shoe Regular Shoe Right Footwear Regular Shoe Regular Shoe Pain Scale: 0-10 Numeric Is Patient Pain Free? Yes Yes WC - Nurse 1 - General Ulcer Measurement Start: 05/30/22 08:21 Freq: Status: Active Protocol: Activity Type Activity Date Activity User E-sign Co-sign Detail Recorded Client Recorded Date Recorded By Document 05/30/22 10:28 MS [id number] 05/30/22 10:31 AK Document 06/06/22 08:23 [facility] [id number] 06/06/22 08:28 [facility] 05/30/22 06/06/22 10:28 08:23 Wound Center Nurse 1 #1 Chin -Combined with other wound No No -Current Size (cm) - Length 3 2.8 -Current Size (cm) - Width 3.6 3.5 -Current Size (cm) - Depth 0.2 0.4 -Total Square Cm 10.8 9.80 -Date of Last Picture (Recall this 06/06/22 field) -Photo Taken No Yes -Epithelialization None Present None Present -Tunneling No No -Undermining/Tunneling No No -Circular Undermining No No -Change in Wound Grade/Stage No -Exudate Amt Large Medium -Exudate Type Yellow/Green Serous -Wound Margin Distinct, Distinct, Outline Outline Attached Attached -Granulation Amt Medium (34-66%) None Present (0 %) -Slough/Fibrin Yes Yes -Necrosis Amt Large (67-100%) Large (67-100%) -Necrotic Tissue Type Adherent Slough Adherent Slough -Structure Exposed N/A -Texture (Candace-wound Skin Appearance) No Abnormality, Assessed Assessed -Moisture (Candace-wound Skin Appearance) No Abnormality, Assessed Assessed -Color (Candace-wound Skin Appearance) No Abnormality, Assessed, Assessed Erythema -Temperature (Candace-wound Skin No Abnormality No Abnormality Appearance) (Pt Warm) (Pt Warm) -Tenderness on Palpation (Candace-wound No No Skin Appearance) -Ulcer Cleansing Rinsed/ Rinsed/ Irrigated with Irrigated with Saline Saline -Foul Odor after Cleansing No No -Anesthetic Used 4% Lidocaine 4% Lidocaine Solution Solution WC - Nurse 2 - General Ulcer CM Notes Start: 05/30/22 08:21 Freq: Status: Active Protocol: Activity Type Activity Date Activity User E-sign Co-sign Detail Recorded Client Recorded Date Recorded By Document 05/30/22 08:22 MW [id number] 05/30/22 08:26 MW Document 06/06/22 08:45 MW [id number] 06/06/22 08:52 MW 05/30/22 06/06/22 08:22 08:45 Wound Center Nurse 2 #1 Chin -Time 08:22 08:45 -Correct Patient Yes Yes -Correct Side, Site, Position Yes Yes -Correct Procedure Yes Yes -Procedure Performed Yes Yes -Type of Procedure Debridement Debridement -Clinical Debridement Subcutaneous Subcutaneous -Tissue Removed Subcutaneous Subcutaneous -Post Debridement (cm) - Length 3.0 3.0 -Post Debridement (cm) - Width 4.2 3.7 -Post Debridement (cm) - Depth 0.3 0.4 -Total Square (Post) (cm) 12.60 11.10 -Area of Debridement (cm) - Length 3.0 3.0 -Area of Debridement (cm) - Width 4.2 3.7 -Total Square (Area) (cm) 12.60 11.10 -Tunneling No No -Undermining/Tunneling No No -Circular Undermining No No -Wound/Ulcer Outcome Not Healed Not Healed -Ulcer Cleansing Rinsed/ Rinsed/ Irrigated with Irrigated with Saline Saline -Foul Odor after Cleansing No No -Bioengineered Tissue No No -Bleeding Controlled with Pressure Pressure -Treatment Response Procedure Procedure Tolerated Well Tolerated Well -Offloading No No -Debridement - Subq, 1st 20sq cm Yes Yes Pain Scale: 0-10 Numeric Is Patient Pain Free? Yes Yes DHAVAL - Nurse 3 - General Ulcer D/C NN Start: 05/30/22 08:21 Freq: Status: Active Protocol: Activity Type Activity Date Activity User E-sign Co-sign Detail Recorded Client Recorded Date Recorded By Document 05/30/22 08:36 KR [id number] 05/30/22 08:37 KR Document 06/06/22 09:00 [facility] [id number] 06/06/22 09:00 [facility] 05/30/22 06/06/22 08:36 09:00 Wound Care Nurse 3 #1 Chin -Ulcer Cleansing Rinsed/ Rinsed/ Irrigated with Irrigated with Saline Saline -Foul Odor after Cleansing No -Primary Dressing Applied NonAdherent Promogran Contact Layer, Ruth Matter Promogran Ruth Matter -Primary Dressing Covered/Secured with Dry Gauze, Dry Gauze, Secured with Secured with Tape Tape -Promogran Ruth Matter 1 1 Treatment Response Procedure Tolerated Well Pain Scale: 0-10 Numeric Is Patient Pain Free? Yes Yes WC - Visit Discharge Discharge Condition Stable Stable Ambulatory Status Ambulatory Ambulatory Transportation Private Auto Private Auto Accompanied by daughter stefanie Assessment/Plan Assessment/Plan (1) Head and neck cancer: CODE(S): C76.0 - Malignant neoplasm of head, face and neck (2) Delayed surgical wound healing: CODE(S): T81.89XA - Other complications of procedures, not elsewhere classified, initial encounter QUALIFIERS: Encounter type: subsequent encounter Qualified Code(s): T81.89XD - Other complications of procedures, not elsewhere classified, subsequent encounter PLAN: Wash area with antibacterial soap apply Ruth to wound base moistened then cover with Adaptic then 4 x 4 then cover with cushioned gauze 4 x 4's. Dressing is done daily Patient to finish Levaquin 500 mg daily x14 days Follow-up in 1 week
[2022-06-13 08:22] VITALS: BP 126/59; PULSE 74; RESP 16; TEMP 35.8; BMI 22.3
--- NOTE | 2022-06-13 09:18 | PN.PCM_ITS ---
History of Present Illness Date of Service: 06/13/22 Chief Complaint: Follow-up open surgical wound from cancer of the jaw. 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 Most recent surgery is November 07, 2021 reconstruction of the jaw using bone from his left lower leg but left the neck area open for healing. Progress of Wound: We started using Ruth last week and has made a big difference with the slough is much more easier to pull off and debride. Cultures were positive patient is on antibiotics and doing well. Insurance denied the skin substitutes but [facility] was able to give us 3 samples for the next 3 weeks we will try TheraSkin weekly or every 2 weeks . We also opened up an area on the left lateral lower leg where he gave his bone and skin to his jaw. Subjective Subjective Daughter and patient are very excited about getting the cadaver skin sob Objective Data Objective Data The wound cleaned up well there is only one deep area that keeps getting a lot of slough in it. Wiped out clean to apply a TheraSkin to both his jaw and his left lower leg that still has not healed from donating site. Applied TheraSkin to both jaw and left lower leg we will follow-up in 1 week Vital Signs: Vital Signs Temp Pulse Resp BP O2 Del Method 96.5 F L 74 16 126/59 H Room Air 06/13/22 08:22 06/13/22 08:22 06/13/22 08:22 06/13/22 08:22 06/13/22 08:22 Oxygen Delivery Method Room Air Weight: 130 lb Body Mass Index (BMI) 22.3 Lab / Micro Data Attestation: I reviewed the patient's lab results. Physical Exam Narrative ECOG 1 Hard of hearing Const alert, oriented x3 and no apparent distress General Appearance: cooperative and comfortable HEENT normocephalic HEENT Narrative: Reconstruction of the lower face, soft tissue edema Mouth: No thrush Eyes General Eye: normal appearance of both eyes Conjunctiva: conjunctiva normal Sclera: sclera normal Neck no lymphadenopathy and no JVD Neck Narrative: Postoperative changes and flap. Wound is covered with surgical dressing General: tracheostomy present Lymph Lymphatic: no lymphadenopathy noted Chest Chest: symmetrical chest wall rise Resp Auscultation: diminished lung sounds bilateral and diffuse Cardio regular rate and regular rhythm Jugular Venous Distention: Negative for JVD GI soft to palpation, non-tender and non-distended; Negative for hepatosplenomegaly GI Narrative: PEG tube no CVA tenderness Back/Spine no thoracic nor lumbar tenderness Extremity General Extremity: Negative for clubbing, cyanosis or edema Skin no rashes or lesions noted Neuro oriented x3, CN's II-XII intact bilaterally and moves all extremities Neuro Narrative: Bilateral symmetric wasting of first interosseous muscles. Coordination / Balance: [id number] test normal Speech: speech abnormal Gait (Neuro): normal gait Psych mental status grossly normal, thought process normal, cooperative and affect normal Debridement Note Debridement Note Wound debrided: Left jaw cancer site from surgery Laterality: Left Type of Debridement: Excisional debridement Anesthesia Used: 5% Lidocaine Gel Depth: to bone Percentage of wound debrided: 100 Instrument Used: 5mm curette, #15 blade and Forceps Tissue Removed: Slough and fibrin Severity: Fat Layer Exposed Amount of bleeding with debridement: Mild Bleeding Controlled with: Pressure Patient tolerated procedure: Patient tolerated procedure well Post-Debridement Measurements and Additional Note: Post-Debridement Measurements/Treatment - Nurse 1 - General Ulcer Assessment Start: 05/30/22 08:21 Freq: Status: Active Protocol: BRANDAN Activity Type Activity Date Activity User E-sign Co-sign Detail Recorded Client Recorded Date Recorded By Document 05/30/22 10:28 [place] [id number] 05/30/22 10:31 [place] Document 06/06/22 08:23 [facility] [id number] 06/06/22 08:28 [facility] Document 06/13/22 08:22 [facility] [id number] 06/13/22 08:28 [facility] 05/30/22 06/06/22 06/13/22 10:28 08:23 08:22 - Today's Visit Information Type of service Follow-up Visit Follow-up Visit Follow-up Visit (Physician/EARLY CHILDHOOD ASSOCIATE (Physician/EARLY CHILDHOOD ASSOCIATE (Physician/EARLY CHILDHOOD ASSOCIATE ) ) ) Arrival Mode Ambulatory Ambulatory Ambulatory Transfer Assistance None None Accompanied by daughter daughter Patient Identification Verified (Name & No Yes Yes ) Patient Requires Transmission-Based No No No Precautions Safety Precautions NA Height and Weight Body Mass Index (BMI) 22.3 22.3 22.3 BMI Classification Normal Normal Normal Vital Signs Temperature (97.8 F-99.1 F) 96.6 F L 97.8 F 96.5 F L Temperature Source Temporal Temporal Temporal Pulse Rate (60-100) 69 72 74 Pulse Location Monitor Monitor Monitor Respiratory Rate (12-18) 16 16 Respiratory rate source Observation Observation Oxygen Delivery Method Room Air Room Air Blood Pressure (90/60-120/80) 124/70 H 135/73 H 126/59 H Blood Pressure Mean (mm Hg) 88 93 81 Source Monitor Monitor Monitor Position Sitting Sitting Blood Pressure Location Left Arm Left Arm History Since Last Visit- (Skip if this is Patient's initial visit) Have you changed medications since your No No No last visit? Any new allergies or adverse reactions No No No Had a fall/change in ADL's that may No No No increase risk of falls Signs or symptoms of abuse and/or No No No neglect since last visit Have you been in the hospital since your No No No last visit? Has dressing in place as prescribed Yes Yes Yes Has compression in place as prescribed N/A N/A N/A Has offloadiing in place as prescribed N/A N/A N/A Experienced any changes in pain level or No No No management Left Footwear Regular Shoe Regular Shoe Regular Shoe Right Footwear Regular Shoe Regular Shoe Regular Shoe Pain Scale: 0-10 Numeric Is Patient Pain Free? Yes Yes Yes WC - Nurse 1 - General Ulcer Measurement Start: 05/30/22 08:21 Freq: Status: Active Protocol: Activity Type Activity Date Activity User E-sign Co-sign Detail Recorded Client Recorded Date Recorded By Document 05/30/22 10:28 [place] [id number] 05/30/22 10:31 [place] Document 06/06/22 08:23 [facility] [id number] 06/06/22 08:28 [facility] Document 06/13/22 08:22 [facility] [id number] 06/13/22 08:28 [facility] 05/30/22 06/06/2222 10:28 08:23 08:22 Wound Center Nurse 1 #2- L LAT LE -Combined with other wound No -Current Size (cm) - Length 5.5 -Current Size (cm) - Width 0.6 -Current Size (cm) - Depth 0.2 -Total Square Cm 3.30 -Date of Last Picture (Recall this 06/13/22 field) -Photo Taken Yes -Epithelialization None Present -Tunneling No -Undermining/Tunneling No -Circular Undermining No -Exudate Amt None Present -Wound Margin Distinct, Outline Attached -Granulation Amt Large (67-100%) -Granulation Quality Red -Slough/Fibrin Yes -Necrosis Amt Small (1-33%) -Necrotic Tissue Type Adherent Slough -Texture (Candace-wound Skin Appearance) Assessed, Scarring -Moisture (Candace-wound Skin Appearance) Assessed -Color (Candace-wound Skin Appearance) Assessed -Temperature (Candace-wound Skin No Abnormality Appearance) (Pt Warm) -Tenderness on Palpation (Candace-wound No Skin Appearance) -Ulcer Cleansing Rinsed/ Irrigated with Saline -Foul Odor after Cleansing No -Anesthetic Used 5% Lidocaine Gel #1 Chin -Combined with other wound No No No -Current Size (cm) - Length 3 2.8 2.7 -Current Size (cm) - Width 3.6 3.5 3 -Current Size (cm) - Depth 0.2 0.4 0.2 -Total Square Cm 10.8 9.80 8.1 -Date of Last Picture (Recall this 06/06/22 06/13/22 field) -Photo Taken No Yes Yes -Epithelialization None Present None Present None Present -Tunneling No No No -Undermining/Tunneling No No No -Circular Undermining No No No -Change in Wound Grade/Stage No -Exudate Amt Large Medium Medium -Exudate Type Yellow/Green Serous Serosanguineous -Wound Margin Distinct, Distinct, Distinct, Outline Outline Outline Attached Attached Attached -Granulation Amt Medium (34-66%) None Present (0 Small (1-33%) %) -Granulation Quality Red -Slough/Fibrin Yes Yes Yes -Necrosis Amt Large (67-100%) Large (67-100%) Large (67-100%) -Necrotic Tissue Type Adherent Slough Adherent Slough Adherent Slough -Structure Exposed N/A -Texture (Candace-wound Skin Appearance) No Abnormality, Assessed Assessed, Assessed Fluctuance -Moisture (Candace-wound Skin Appearance) No Abnormality, Assessed Assessed Assessed -Color (Candace-wound Skin Appearance) No Abnormality, Assessed, Assessed, Assessed Erythema Erythema -Temperature (Candace-wound Skin No Abnormality No Abnormality No Abnormality Appearance) (Pt Warm) (Pt Warm) (Pt Warm) -Tenderness on Palpation (Candace-wound No No No Skin Appearance) -Ulcer Cleansing Rinsed/ Rinsed/ Soap and Water Irrigated with Irrigated with Saline Saline -Foul Odor after Cleansing No No No -Anesthetic Used 4% Lidocaine 4% Lidocaine 5% Lidocaine Solution Solution Gel WC - Nurse 2 - General Ulcer CM Notes Start: 05/30/22 08:21 Freq: Status: Active Protocol: Activity Type Activity Date Activity User E-sign Co-sign Detail Recorded Client Recorded Date Recorded By Document 05/30/22 08:22 MW [id number] 05/30/22 08:26 MW Document 06/06/22 08:45 MW [id number] 06/06/22 08:52 MW Document 06/13/22 08:36 MW Desktop 06/13/22 08:44 MW 05/30/22 06/06/22 06/13/22 08:22 08:45 08:36 Wound Center Nurse 2 #2- L LAT LE -Time 08:39 -Correct Patient Yes -Correct Side, Site, Position Yes -Correct Procedure Yes -Procedure Performed Yes -Type of Procedure Debridement -Clinical Debridement Subcutaneous -Tissue Removed Subcutaneous -Post Debridement (cm) - Length 6.0 -Post Debridement (cm) - Width 0.5 -Post Debridement (cm) - Depth 0.2 -Total Square (Post) (cm) 3.00 -Area of Debridement (cm) - Length 6.0 -Area of Debridement (cm) - Width 0.5 -Total Square (Area) (cm) 3.00 -Tunneling No -Undermining/Tunneling No -Circular Undermining No -Wound/Ulcer Outcome Not Healed -Ulcer Cleansing Rinsed/ Irrigated with Saline -Foul Odor after Cleansing No -Bioengineered Tissue No -Bleeding Controlled with Pressure -Treatment Response Procedure Tolerated Well -Offloading No -Debridement - Subq, 1st 20sq cm Yes #1 Chin -Time 08:22 08:45 08:39 -Correct Patient Yes Yes Yes -Correct Side, Site, Position Yes Yes Yes -Correct Procedure Yes Yes Yes -Procedure Performed Yes Yes Yes -Type of Procedure Debridement Debridement Debridement -Clinical Debridement Subcutaneous Subcutaneous Subcutaneous -Tissue Removed Subcutaneous Subcutaneous Subcutaneous -Post Debridement (cm) - Length 3.0 3.0 4.5 -Post Debridement (cm) - Width 4.2 3.7 3.0 -Post Debridement (cm) - Depth 0.3 0.4 0.8 -Total Square (Post) (cm) 12.60 11.10 13.50 -Area of Debridement (cm) - Length 3.0 3.0 4.5 -Area of Debridement (cm) - Width 4.2 3.7 3.0 -Total Square (Area) (cm) 12.60 11.10 13.50 -Tunneling No No No -Undermining/Tunneling No No No -Circular Undermining No No No -Wound/Ulcer Outcome Not Healed Not Healed Not Healed -Ulcer Cleansing Rinsed/ Rinsed/ Rinsed/ Irrigated with Irrigated with Irrigated with Saline Saline Saline -Foul Odor after Cleansing No No No -Bioengineered Tissue No No No -Bleeding Controlled with Pressure Pressure Pressure -Treatment Response Procedure Procedure Procedure Tolerated Well Tolerated Well Tolerated Well -Offloading No No No -Debridement - Subq, 1st 20sq cm Yes Yes No Pain Scale: 0-10 Numeric Is Patient Pain Free? Yes Yes Yes - Nurse 3 - General Ulcer D/C NN Start: 05/30/22 08:21 Freq: Status: Active Protocol: Activity Type Activity Date Activity User E-sign Co-sign Detail Recorded Client Recorded Date Recorded By Document 05/30/22 08:36 [id number] 05/30/22 08:37 Document 06/06/22 09:00 [facility] [id number] 06/06/22 09:00 [facility] Document 06/13/22 08:59 [facility] [id number] 06/13/22 09:01 [facility] 05/30/22 06/06/22 06/13/22 08:36 09:00 08:59 Wound Care Nurse 3 #2- L LAT LE -Primary Dressing Applied Aquacel Extra -Other Dressing [place] -Primary Dressing Covered/Secured with Dry Gauze & Roll Gauze, Secured with Tape -Other Covering DRSG PER [place] TIME SIGNAL WIRER -Aquacel Extra 2 #1 Chin -Ulcer Cleansing Rinsed/ Rinsed/ Irrigated with Irrigated with Saline Saline -Foul Odor after Cleansing No -Primary Dressing Applied NonAdherent Promogran Aquacel Extra Contact Layer, Ruth Matter Promogran Ruth Matter -Other Dressing [place] -Primary Dressing Covered/Secured with Dry Gauze, Dry Gauze, Dry Gauze, Secured with Secured with Secured with Tape Tape Tape -Other Covering DRSG PER [place] TIME SIGNAL WIRER -Aquacel Extra 0 -Promogran Ruth Matter 1 1 Left -Tubular Bandage Single Layer -Size of Tubigrip Used Size D -Size D ($) 2 -Other SENT EXTRA Treatment Response Procedure Procedure Tolerated Well Tolerated Well Pain Scale: 0-10 Numeric Is Patient Pain Free? Yes Yes Yes WC - Visit Discharge Discharge Condition Stable Stable Stable Ambulatory Status Ambulatory Ambulatory Ambulatory Transportation Private Auto Private Auto Private Auto Accompanied by daughter stefanie ESTRADA Additional Wound Wound debrided: Left lateral lower leg donor site postsurgical wound Laterality: Left Type of Debridement: Excisional debridement Anesthesia Used: 5% Lidocaine Gel Depth: in the subcutaneous layer Percentage of wound debrided: 100 Instrument Used: 5mm curette Tissue Removed: Fibrin and devitalized tissue Severity: Limited To Skin Breakdown Amount of bleeding with debridement: Mild Bleeding Controlled with: Compression and gauze Patient tolerated procedure: Patient tolerated procedure well Assessment/Plan Assessment/Plan (1) Head and neck cancer: CODE(S): C76.0 - Malignant neoplasm of head, face and neck PLAN: Applied TheraSkin to left jaw area with wound veil and Aquacel extra over top and then regular dressing. Patient is to leave dressing on for 1 week we will follow-up next Saturday. Patient is to finish antibiotic therapy (2) Delayed surgical wound healing: CODE(S): T81.89XA - Other complications of procedures, not elsewhere classified, initial encounter QUALIFIERS: Encounter type: subsequent encounter Qualified Code(s): T81.89XD - Other complications of procedures, not elsewhere classified, subsequent encounter (3) Nonhealing surgical wound: CODE(S): T81.89XA - Other complications of procedures, not elsewhere classified, initial encounter PLAN: Left lateral lower leg donor site applied TheraSkin with wound veil and Aquacel extra over top to be left on for 1 week and not to get wet Patient is to follow-up in 1 week
[2022-06-20 08:43] VITALS: BP 124/63; PULSE 63; TEMP 36.2; BMI 22.3
--- NOTE | 2022-06-20 09:36 | PN.PCM_ITS ---
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 Most recent surgery is November 07, 2021 reconstruction of the jaw using bone from his left lower leg but left the neck area open for healing. Progress of Wound: We started using Ruth last week and has made a big difference with the slough is much more easier to pull off and debride. Cultures were positive patient is on antibiotics and doing well. Insurance denied the skin substitutes but our TheraSkin REP was able to give us 3 samples for the next 3 weeks we will try TheraSkin weekly or every 2 weeks . We also opened up an area on the left lateral lower leg where he gave his bone and skin to his jaw. Subjective Subjective Patient and daughter state they went to their surgeons follow-up this last week and they took the dressing off and told her that the TheraSkin did not take and that it was rotted was . Then they put on Xeroform over my TheraSkin and sent them home. Now she is talking about getting him proper grafting done. Objective Data Objective Data The TheraSkin is actually taken on 1 side right side of the wound base the left side that was very deep still loose rinsed the TheraSkin well got off any kind of necrotic tissue and reapplied the wound veil and the Steri-Strips. Leave on for another week and then reapply the second dose. Looks like the graft took very well normal is looking necrotic and it has an odor. Patient is tolerating treatment well and daughter seems to be pleased. Vital Signs: Vital Signs Temp Pulse Resp BP O2 Del Method 97.2 F L 63 16 124/63 H Room Air 06/20/22 08:43 06/20/22 08:43 06/13/22 08:22 06/20/22 08:43 06/13/22 08:22 Oxygen Delivery Method Room Air Weight: 130 lb Body Mass Index (BMI) 22.3 Lab / Micro Data Attestation: I reviewed the patient's lab results. Debridement Note Debridement Note Post-Debridement Measurements and Additional Note: Post-Debridement Measurements/Treatment WC - Nurse 1 - General Ulcer Assessment Start: 05/30/22 08:21 Freq: Status: Active Protocol: WC.LOWEXT Activity Type Activity Date Activity User E-sign Co-sign Detail Recorded Client Recorded Date Recorded By Document 05/30/22 10:28 [place] [id number] 05/30/22 10:31 AK Document 06/06/22 08:23 [facility] [id number] 06/06/22 08:28 [facility] Document 06/13/22 08:22 [facility] [id number] 06/13/22 08:28 [facility] Document 06/20/22 08:43 AK [id number] 06/20/22 08:48 AK 05/30/22 06/06/22 06/13/22 10:28 08:23 08:22 - Today's Visit Information Type of service Follow-up Visit Follow-up Visit Follow-up Visit (Physician/BASEBALL [employer]IRE [employer] (Physician/[employer]BALL [employer]IRE [employer] (Physician/BASEBALL U[employer]IRE [employer] ) ) ) Arrival Mode Ambulatory Ambulatory Ambulatory Transfer Assistance None None Accompanied by daughter daughter Patient Identification Verified (Name & No Yes Yes ) Patient Requires Transmission-Based No No No Precautions Safety Precautions NA Height and Weight Body Mass Index (BMI) 22.3 22.3 22.3 BMI Classification Normal Normal Normal Vital Signs Temperature (97.8 F-99.1 F) 96.6 F L 97.8 F 96.5 F L Temperature Source Temporal Temporal Temporal Pulse Rate (60-100) 69 72 74 Pulse Location Monitor Monitor Monitor Respiratory Rate (12-18) 16 16 Respiratory rate source Observation Observation Oxygen Delivery Method Room Air Room Air Blood Pressure (90/60-120/80) 124/70 H 135/73 H 126/59 H Blood Pressure Mean (mm Hg) 88 93 81 Source Monitor Monitor Monitor Position Sitting Sitting Blood Pressure Location Left Arm Left Arm History Since Last Visit- (Skip if this is Patient's initial visit) Have you changed medications since your No No No last visit? Any new allergies or adverse reactions No No No Had a fall/change in ADL's that may No No No increase risk of falls Signs or symptoms of abuse and/or No No No neglect since last visit Have you been in the hospital since your No No No last visit? Has dressing in place as prescribed Yes Yes Yes Has compression in place as prescribed N/A N/A N/A Has offloadiing in place as prescribed N/A N/A N/A Experienced any changes in pain level or No No No management Left Footwear Regular Shoe Regular Shoe Regular Shoe Right Footwear Regular Shoe Regular Shoe Regular Shoe Pain Scale: 0-10 Numeric Is Patient Pain Free? Yes Yes Yes 06/20/22 08:43 - Today's Visit Information Type of service Follow-up Visit (Physician/[employer]BALL [employer]IRE [employer] ) Arrival Mode Ambulatory Transfer Assistance Accompanied by Patient Identification Verified (Name & Yes ) Patient Requires Transmission-Based No Precautions Safety Precautions NA Height and Weight Body Mass Index (BMI) 22.3 BMI Classification Normal Vital Signs Temperature (97.8 F-99.1 F) 97.2 F L Temperature Source Temporal Pulse Rate (60-100) 63 Pulse Location Monitor Respiratory Rate (12-18) Respiratory rate source Oxygen Delivery Method Blood Pressure (90/60-120/80) 124/63 H Blood Pressure Mean (mm Hg) 83 Source Monitor Position Blood Pressure Location History Since Last Visit- (Skip if this is Patient's initial visit) Have you changed medications since your No last visit? Any new allergies or adverse reactions No Had a fall/change in ADL's that may No increase risk of falls Signs or symptoms of abuse and/or No neglect since last visit Have you been in the hospital since your No last visit? Has dressing in place as prescribed Yes Has compression in place as prescribed Yes Has offloadiing in place as prescribed N/A Experienced any changes in pain level or No management Left Footwear Regular Shoe Right Footwear Regular Shoe Pain Scale: 0-10 Numeric Is Patient Pain Free? Yes - Nurse 1 - General Ulcer Measurement Start: 05/30/22 08:21 Freq: Status: Active Protocol: Activity Type Activity Date Activity User E-sign Co-sign Detail Recorded Client Recorded Date Recorded By Document 05/30/22 10:28 NC [id number] 05/30/22 10:31 NC Document 06/06/22 08:23 [facility] [id number] 06/06/22 08:28 [facility] Document 06/13/22 08:22 [facility] [id number] 06/13/22 08:28 [facility] Document 06/20/22 08:43 NC [id number] 06/20/22 08:48 AK 05/30/22 06/06/22 06/13/22 10:28 08:23 08:22 Wound Center Nurse 1 #2- L LAT LE -Combined with other wound No -Current Size (cm) - Length 5.5 -Current Size (cm) - Width 0.6 -Current Size (cm) - Depth 0.2 -Total Square Cm 3.30 -Date of Last Picture (Recall this 06/13/22 field) -Photo Taken Yes -Epithelialization None Present -Tunneling No -Undermining/Tunneling No -Circular Undermining No -Exudate Amt None Present -Wound Margin Distinct, Outline Attached -Granulation Amt Large (67-100%) -Granulation Quality Red -Slough/Fibrin Yes -Necrosis Amt Small (1-33%) -Necrotic Tissue Type Adherent Slough -Texture (Candace-wound Skin Appearance) Assessed, Scarring -Moisture (Candace-wound Skin Appearance) Assessed -Color (Candace-wound Skin Appearance) Assessed -Temperature (Candace-wound Skin No Abnormality Appearance) (Pt Warm) -Tenderness on Palpation (Candace-wound No Skin Appearance) -Ulcer Cleansing Rinsed/ Irrigated with Saline -Foul Odor after Cleansing No -Anesthetic Used 5% Lidocaine Gel #1 Chin -Combined with other wound No No No -Current Size (cm) - Length 3 2.8 2.7 -Current Size (cm) - Width 3.6 3.5 3 -Current Size (cm) - Depth 0.2 0.4 0.2 -Total Square Cm 10.8 9.80 8.1 -Date of Last Picture (Recall this 06/06/22 06/13/22 field) -Photo Taken No Yes Yes -Epithelialization None Present None Present None Present -Tunneling No No No -Undermining/Tunneling No No No -Circular Undermining No No No -Change in Wound Grade/Stage No -Exudate Amt Large Medium Medium -Exudate Type Yellow/Green Serous Serosanguineous -Wound Margin Distinct, Distinct, Distinct, Outline Outline Outline Attached Attached Attached -Granulation Amt Medium (34-66%) None Present (0 Small (1-33%) %) -Granulation Quality Red -Slough/Fibrin Yes Yes Yes -Necrosis Amt Large (67-100%) Large (67-100%) Large (67-100%) -Necrotic Tissue Type Adherent Slough Adherent Slough Adherent Slough -Structure Exposed N/A -Texture (Candace-wound Skin Appearance) No Abnormality, Assessed Assessed, Assessed Fluctuance -Moisture (Candace-wound Skin Appearance) No Abnormality, Assessed Assessed Assessed -Color (Candace-wound Skin Appearance) No Abnormality, Assessed, Assessed, Assessed Erythema Erythema -Temperature (Candace-wound Skin No Abnormality No Abnormality No Abnormality Appearance) (Pt Warm) (Pt Warm) (Pt Warm) -Tenderness on Palpation (Candace-wound No No No Skin Appearance) -Ulcer Cleansing Rinsed/ Rinsed/ Soap and Water Irrigated with Irrigated with Saline Saline -Foul Odor after Cleansing No No No -Anesthetic Used 4% Lidocaine 4% Lidocaine 5% Lidocaine Solution Solution Gel -Wound Comment(s) 06/20/22 08:43 Wound Center Nurse 1 #2- L LAT LE -Combined with other wound No -Current Size (cm) - Length -Current Size (cm) - Width -Current Size (cm) - Depth -Total Square Cm -Date of Last Picture (Recall this field) -Photo Taken -Epithelialization -Tunneling -Undermining/Tunneling -Circular Undermining -Exudate Amt -Wound Margin -Granulation Amt -Granulation Quality -Slough/Fibrin -Necrosis Amt -Necrotic Tissue Type -Texture (Candace-wound Skin Appearance) -Moisture (Candace-wound Skin Appearance) -Color (Candace-wound Skin Appearance) -Temperature (Candace-wound Skin Appearance) -Tenderness on Palpation (Candace-wound Skin Appearance) -Ulcer Cleansing -Foul Odor after Cleansing -Anesthetic Used #1 Chin -Combined with other wound -Current Size (cm) - Length -Current Size (cm) - Width -Current Size (cm) - Depth -Total Square Cm -Date of Last Picture (Recall this field) -Photo Taken -Epithelialization -Tunneling -Undermining/Tunneling -Circular Undermining -Change in Wound Grade/Stage -Exudate Amt -Exudate Type -Wound Margin -Granulation Amt -Granulation Quality -Slough/Fibrin -Necrosis Amt -Necrotic Tissue Type -Structure Exposed -Texture (Candace-wound Skin Appearance) -Moisture (Candace-wound Skin Appearance) -Color (Candace-wound Skin Appearance) -Temperature (Candace-wound Skin Appearance) -Tenderness on Palpation (Candace-wound Skin Appearance) -Ulcer Cleansing -Foul Odor after Cleansing -Anesthetic Used -Wound Comment(s) theraskin on both wounds can 't measure WC - Nurse 2 - General Ulcer CM Notes Start: 05/30/22 08:21 Freq: Status: Active Protocol: Activity Type Activity Date Activity User E-sign Co-sign Detail Recorded Client Recorded Date Recorded By Document 05/30/22 08:22 MW [id number] 05/30/22 08:26 MW Document 06/06/22 08:45 MW [id number] 06/06/22 08:52 MW Document 06/13/22 08:36 MW Desktop 06/13/22 08:44 MW Document 06/20/22 08:28 MW [id number] 06/20/22 08:31 MW 05/30/22 06/06/22 06/13/22 08:22 08:45 08:36 Wound Center Nurse 2 #2- L LAT LE -Time 08:39 -Correct Patient Yes -Correct Side, Site, Position Yes -Correct Procedure Yes -Procedure Performed Yes -Type of Procedure Debridement -Clinical Debridement Subcutaneous -Tissue Removed Subcutaneous -Post Debridement (cm) - Length 6.0 -Post Debridement (cm) - Width 0.5 -Post Debridement (cm) - Depth 0.2 -Total Square (Post) (cm) 3.00 -Area of Debridement (cm) - Length 6.0 -Area of Debridement (cm) - Width 0.5 -Total Square (Area) (cm) 3.00 -Tunneling No -Undermining/Tunneling No -Circular Undermining No -Wound/Ulcer Outcome Not Healed -Ulcer Cleansing Rinsed/ Irrigated with Saline -Foul Odor after Cleansing No -Bioengineered Tissue No -Bleeding Controlled with Pressure -Treatment Response Procedure Tolerated Well -Offloading No -Debridement - Subq, 1st 20sq cm Yes #1 Chin -Time 08:22 08:45 08:39 -Correct Patient Yes Yes Yes -Correct Side, Site, Position Yes Yes Yes -Correct Procedure Yes Yes Yes -Procedure Performed Yes Yes Yes -Type of Procedure Debridement Debridement Debridement -Clinical Debridement Subcutaneous Subcutaneous Subcutaneous -Tissue Removed Subcutaneous Subcutaneous Subcutaneous -Post Debridement (cm) - Length 3.0 3.0 4.5 -Post Debridement (cm) - Width 4.2 3.7 3.0 -Post Debridement (cm) - Depth 0.3 0.4 0.8 -Total Square (Post) (cm) 12.60 11.10 13.50 -Area of Debridement (cm) - Length 3.0 3.0 4.5 -Area of Debridement (cm) - Width 4.2 3.7 3.0 -Total Square (Area) (cm) 12.60 11.10 13.50 -Tunneling No No No -Undermining/Tunneling No No No -Circular Undermining No No No -Wound/Ulcer Outcome Not Healed Not Healed Not Healed -Ulcer Cleansing Rinsed/ Rinsed/ Rinsed/ Irrigated with Irrigated with Irrigated with Saline Saline Saline -Foul Odor after Cleansing No No No -Bioengineered Tissue No No No -Bleeding Controlled with Pressure Pressure Pressure -Treatment Response Procedure Procedure Procedure Tolerated Well Tolerated Well Tolerated Well -Offloading No No No -Debridement - Subq, 20sq cm Yes Yes No Pain Scale: 0-10 Numeric Is Patient Pain Free? Yes Yes Yes 06/20/22 08:28 Wound Center Nurse 2 #2- L LAT LE -Time 08:30 -Correct Patient Yes -Correct Side, Site, Position Yes -Correct Procedure Yes -Procedure Performed No -Type of Procedure -Clinical Debridement -Tissue Removed -Post Debridement (cm) - Length -Post Debridement (cm) - Width -Post Debridement (cm) - Depth -Total Square (Post) (cm) -Area of Debridement (cm) - Length -Area of Debridement (cm) - Width -Total Square (Area) (cm) -Tunneling No -Undermining/Tunneling No -Circular Undermining No -Wound/Ulcer Outcome Not Healed -Ulcer Cleansing -Foul Odor after Cleansing -Bioengineered Tissue -Bleeding Controlled with -Treatment Response -Offloading -Debridement - Subq, 20sq cm #1 Chin -Time 08:30 -Correct Patient Yes -Correct Side, Site, Position Yes -Correct Procedure Yes -Procedure Performed No -Type of Procedure -Clinical Debridement -Tissue Removed -Post Debridement (cm) - Length -Post Debridement (cm) - Width -Post Debridement (cm) - Depth -Total Square (Post) (cm) -Area of Debridement (cm) - Length -Area of Debridement (cm) - Width -Total Square (Area) (cm) -Tunneling No -Undermining/Tunneling No -Circular Undermining No -Wound/Ulcer Outcome Not Healed -Ulcer Cleansing Rinsed/ Irrigated with Saline -Foul Odor after Cleansing -Bioengineered Tissue -Bleeding Controlled with -Treatment Response -Offloading -Debridement - Subq, 1st 20sq cm Pain Scale: 0-10 Numeric Is Patient Pain Free? Yes - Nurse 3 - General Ulcer D/C NN Start: 05/30/22 08:21 Freq: Status: Active Protocol: Activity Type Activity Date Activity User E-sign Co-sign Detail Recorded Client Recorded Date Recorded By Document 05/30/22 08:36 KR [id number] 05/30/22 08:37 KR Document 06/06/22 09:00 [facility] [id number] 06/06/22 09:00 BM Document 06/13/22 08:59 [facility] [id number] 06/13/22 09:01 BM Document 06/20/22 08:43 [place] [id number] 06/20/22 08:48 AK 05/30/22 06/06/22 06/13/22 08:36 09:00 08:59 Wound Care Nurse 3 #2- L LAT LE -Ulcer Cleansing -Primary Dressing Applied Aquacel Extra -Other Dressing [place] -Primary Dressing Covered/Secured with Dry Gauze & Roll Gauze, Secured with Tape -Other Covering DRSG PER [place] SPLICING MACHINE OPERATOR -Aquacel Extra 2 #1 Chin -Ulcer Cleansing Rinsed/ Rinsed/ Irrigated with Irrigated with Saline Saline -Foul Odor after Cleansing No -Negative Pressure Wound Therapy -Primary Dressing Applied NonAdherent Promogran Aquacel Extra Contact Layer, Ruth Matter Promogran Ruth Matter -Other Dressing [place] -Primary Dressing Covered/Secured with Dry Gauze, Dry Gauze, Dry Gauze, Secured with Secured with Secured with Tape Tape Tape -Other Covering DRSG PER [place] SPLICING MACHINE OPERATOR -Aquacel Extra 0 -Promogran Ruth Matter 1 1 Left -Tubular Bandage Single Layer -Size of Tubigrip Used Size D -Size D ($) 2 -Other SENT EXTRA Treatment Response Procedure Procedure Tolerated Well Tolerated Well Vital Signs Temperature (97.8 F-99.1 F) Temperature Source Pulse Rate (60-100) Pulse Location Blood Pressure (90/60-120/80) Blood Pressure Mean (mm Hg) Source Pain Scale: 0-10 Numeric Is Patient Pain Free? Yes Yes Yes WC - Visit Discharge Discharge Condition Stable Stable Stable Ambulatory Status Ambulatory Ambulatory Ambulatory Transportation Private Auto Private Auto Private Auto Accompanied by daughter stefanie ESTRADA Medication Reconcilliation completed & provided to patient/care provider Clinical Summary of Care Provided 06/20/22 08:43 Wound Care Nurse 3 #2- L LAT LE -Ulcer Cleansing Not Cleansed -Primary Dressing Applied Aquacel Extra -Other Dressing -Primary Dressing Covered/Secured with Dry Gauze & Roll Gauze, Secured with Tape -Other Covering -Aquacel Extra 1 #1 Chin -Ulcer Cleansing Not Cleansed -Foul Odor after Cleansing No -Negative Pressure Wound Therapy N/A -Primary Dressing Applied Aquacel Extra -Other Dressing -Primary Dressing Covered/Secured with Dry Gauze, Secured with Tape -Other Covering -Aquacel Extra 0 -Promogran Ruth Matter Left -Tubular Bandage -Size of Tubigrip Used -Size D ($) -Other Treatment Response Vital Signs Temperature (97.8 F-99.1 F) 97.2 F L Temperature Source Temporal Pulse Rate (60-100) 63 Pulse Location Monitor Blood Pressure (90/60-120/80) 124/63 H Blood Pressure Mean (mm Hg) 83 Source Monitor Pain Scale: 0-10 Numeric Is Patient Pain Free? Yes WC - Visit Discharge Discharge Condition Stable Ambulatory Status Ambulatory Transportation Private Auto Accompanied by daughter Medication Reconcilliation completed & Yes provided to patient/care provider Clinical Summary of Care Provided Yes Assessment/Plan Assessment/Plan (1) Head and neck cancer: CODE(S): C76.0 - Malignant neoplasm of head, face and neck PLAN: Rinsed the TheraSkin to left jaw area and reapplied wound veil and Aquacel extra over top and then regular dressing. Patient is to leave dressing on for 1 week we will follow-up next Saturday. Patient is to finish antibiotic therapy (2) Delayed surgical wound healing: CODE(S): T81.89XA - Other complications of procedures, not elsewhere classified, initial encounter QUALIFIERS: Encounter type: subsequent encounter Qualified Code(s): T81.89XD - Other complications of procedures, not elsewhere classified, subsequent encounter (3) Nonhealing surgical wound: CODE(S): T81.89XA - Other complications of procedures, not elsewhere classified, initial encounter PLAN: Left lateral lower leg donor site applied TheraSkin with wound veil and Aquacel extra over top to be left on for 1 week and not to get wet Patient is to follow-up in 1 week
== END 2022-06-22 23:59 | disposition home or self-care (01) ==
LOC: WC 08:15
PROVIDERS: PCP Nurse Practitioner; Visit Provider Nurse Practitioner
DX: C76.0 Malignant neoplasm of head, face and neck (principal); Z93.0 Tracheostomy status; Z92.21 Personal history of antineoplastic chemotherapy; Z92.3 Personal history of irradiation; T81.89XA Other complications of procedures, not elsewhere classified, initial encounter
CPT/HCPCS: 11042; 99213; G0463

== ENCOUNTER 2022-07-18 08:30 | Outpatient (RCR) | payer OTHER, SELFPAY ==
[2022-01-31 09:09] VITALS: BMI 22.6
[2022-06-23 00:29] VITALS: BP 124/63; PULSE 63; RESP 16; TEMP 36.2; BMI 22.3
[2022-06-27 08:32] VITALS: BP 131/60; PULSE 69; TEMP 36.4; BMI 22.3
--- NOTE | 2022-06-27 11:04 | PN.PCM_ITS ---
History of Present Illness Date of Service: 06/27/22 Chief Complaint: Follow-up open surgical wound from cancer of the jaw. 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 Most recent surgery is November 07, 2021 reconstruction of the jaw using bone from his left lower leg but left the neck area open for healing. Progress of Wound: This is the second week for TheraSkin application. Wound looks good still has a little bit of an odor from the skin but doing very well filling in measuring smaller. Had an island off to the side that is healing on the right lateral jaw wound. Tolerating treatments well We will apply the second TheraSkin to the area and follow-up next week with a look at and rinse and reapply all the topical. Putting absorbent Aquacel extra over top to collect any discharge. Surrounding skin looks better. Subjective Subjective Patient has no concerns doing well. Daughter is satisfied with outcomes Objective Data Objective Data No sign of infection still has that odor but once we cleaned him up the odor disappeared. Continues to debride well with bleeds easily. Will apply the second TheraSkin. The donor site on the left lateral lower leg is healed after TheraSkin with 2 weeks on top. No sign of infection completely approximated looks good. Vital Signs: Vital Signs Temp Pulse Resp BP 97.6 F L 69 16 131/60 H 06/27/22 08:32 06/27/22 08:32 06/23/22 00:29 06/27/22 08:32 Weight: 130 lb Body Mass Index (BMI) 22.3 Lab / Micro Data Attestation: I reviewed the patient's lab results. Physical Exam Narrative ECOG 1 Hard of hearing Const alert, oriented x3 and no apparent distress General Appearance: cooperative and comfortable HEENT normocephalic HEENT Narrative: Reconstruction of the lower face, soft tissue edema Mouth: No thrush Eyes General Eye: normal appearance of both eyes Conjunctiva: conjunctiva normal Sclera: sclera normal Neck no lymphadenopathy and no JVD Neck Narrative: Postoperative changes and flap. Wound is covered with surgical dressing General: tracheostomy present Lymph Lymphatic: no lymphadenopathy noted Chest Chest: symmetrical chest wall rise Resp Auscultation: diminished lung sounds bilateral and diffuse Cardio regular rate and regular rhythm Jugular Venous Distention: Negative for JVD GI soft to palpation, non-tender and non-distended; Negative for hepatosplenomegaly GI Narrative: PEG tube no CVA tenderness Back/Spine no thoracic nor lumbar tenderness Extremity General Extremity: Negative for clubbing, cyanosis or edema Skin no rashes or lesions noted Neuro oriented x3, CN's II-XII intact bilaterally and moves all extremities Neuro Narrative: Bilateral symmetric wasting of first interosseous muscles. Coordination / Balance: [id number]-[id number] test normal Speech: speech abnormal Gait (Neuro): normal gait Psych mental status grossly normal, thought process normal, cooperative and affect normal Debridement Note Debridement Note Wound debrided: Left jaw area Laterality: Left Type of Debridement: Excisional debridement Anesthesia Used: 5% Lidocaine Gel Depth: in the subcutaneous layer and to bone Percentage of wound debrided: 100 Instrument Used: 7mm curette Tissue Removed: Slough and fibrin Severity: Fat Layer Exposed Amount of bleeding with debridement: Mild Bleeding Controlled with: Compression and gauze Patient tolerated procedure: Patient tolerated procedure well Post-Debridement Measurements and Additional Note: Post-Debridement Measurements/Treatment WC - Nurse 1 - General Ulcer Assessment Start: 06/27/22 08:32 Freq: Status: Active Protocol: DHAVAL.ROXANA Activity Type Activity Date Activity User E-sign Co-sign Detail Recorded Client Recorded Date Recorded By Document 06/27/22 08:32 PALMIRA [id number] 06/27/22 08:38 PALMIRA 06/27/22 08:32 - Today's Visit Information Type of service Follow-up Visit (Physician/AUTOMATIC OVEN OPERATOR ) Arrival Mode Ambulatory Patient Identification Verified (Name & Yes ) Height and Weight Body Mass Index (BMI) 22.3 BMI Classification Normal Vital Signs Temperature (97.8 F-99.1 F) 97.6 F L Temperature Source Temporal Pulse Rate (60-100) 69 Pulse Location Monitor Blood Pressure (90/60-120/80) 131/60 H Blood Pressure Mean (mm Hg) 83 Source Monitor Position Sitting Blood Pressure Location Left Arm History Since Last Visit- (Skip if this is Patient's initial visit) Have you changed medications since your No last visit? Any new allergies or adverse reactions No Had a fall/change in ADL's that may No increase risk of falls Signs or symptoms of abuse and/or No neglect since last visit Have you been in the hospital since your No last visit? Has dressing in place as prescribed Yes Has compression in place as prescribed N/A Has offloadiing in place as prescribed N/A Experienced any changes in pain level or No management Left Footwear Regular Shoe Right Footwear Regular Shoe Pain Scale: 0-10 Numeric Is Patient Pain Free? Yes WC - Nurse 1 - General Ulcer Measurement Start: 06/27/22 08:32 Freq: Status: Active Protocol: Activity Type Activity Date Activity User E-sign Co-sign Detail Recorded Client Recorded Date Recorded By Document 06/27/22 08:32 KR [id number] 06/27/22 08:38 KR 06/27/22 08:32 Wound Center Nurse 1 #2- L LAT LE -Current Size (cm) - Length 0.1 -Current Size (cm) - Width 0.1 -Current Size (cm) - Depth 0.1 -Total Square Cm 0.01 -Exudate Amt Medium -Exudate Type Serosanguineous -Wound Margin Distinct, Outline Attached -Granulation Amt Medium (34-66%) -Granulation Quality [place] -Necrosis Amt Small (1-33%) -Necrotic Tissue Type Adherent Slough -Texture (Candace-wound Skin Appearance) Assessed, Scarring -Moisture (Candace-wound Skin Appearance) No Abnormality, Assessed -Color (Candace-wound Skin Appearance) Assessed,Not Assessed -Temperature (Candace-wound Skin No Abnormality Appearance) (Pt Warm) -Tenderness on Palpation (Candace-wound No Skin Appearance) -Ulcer Cleansing Soap and Water -Foul Odor after Cleansing No -Anesthetic Used 5% Lidocaine Gel #1 Chin -Current Size (cm) - Length 3 -Current Size (cm) - Width 4.2 -Current Size (cm) - Depth 0.4 -Total Square Cm 12.6 -Exudate Amt Medium -Exudate Type Serosanguineous -Wound Margin Distinct, Outline Attached -Granulation Amt Medium (34-66%) -Granulation Quality [place] -Necrosis Amt Medium (34-66%) -Necrotic Tissue Type Adherent Slough -Texture (Candace-wound Skin Appearance) Assessed, Scarring -Moisture (Candace-wound Skin Appearance) No Abnormality, Assessed -Color (Candace-wound Skin Appearance) No Abnormality, Assessed -Temperature (Candace-wound Skin No Abnormality Appearance) (Pt Warm) -Tenderness on Palpation (Candace-wound No Skin Appearance) -Ulcer Cleansing Soap and Water -Foul Odor after Cleansing No -Anesthetic Used 5% Lidocaine Gel DHAVAL - Nurse 2 - General Ulcer CM Notes Start: 06/27/22 08:32 Freq: Status: Active Protocol: Activity Type Activity Date Activity User E-sign Co-sign Detail Recorded Client Recorded Date Recorded By Document 06/27/22 08:44 MW [id number] 06/27/22 08:50 MW 06/27/22 08:44 Wound Center Nurse 2 #2- L LAT LE -Time 08:50 -Correct Patient Yes -Correct Side, Site, Position Yes -Correct Procedure Yes -Procedure Performed No -Post Debridement (cm) - Length 0 -Post Debridement (cm) - Width 0 -Post Debridement (cm) - Depth 0 -Total Square (Post) (cm) 0 -Wound/Ulcer Outcome Healed- Epithelialized #1 Chin -Time 08:44 -Correct Patient Yes -Correct Side, Site, Position Yes -Correct Procedure Yes -Procedure Performed Yes -Type of Procedure Incision & Drainage -Clinical Debridement Subcutaneous -Tissue Removed Subcutaneous -Post Debridement (cm) - Length 3.0 -Post Debridement (cm) - Width 3.0 -Post Debridement (cm) - Depth 0.5 -Total Square (Post) (cm) 9.00 -Area of Debridement (cm) - Length 3.0 -Area of Debridement (cm) - Width 3.0 -Total Square (Area) (cm) 9.00 -Tunneling No -Undermining/Tunneling No -Circular Undermining No -Wound/Ulcer Outcome Not Healed -Ulcer Cleansing Rinsed/ Irrigated with Saline -Foul Odor after Cleansing No -Bioengineered Tissue No -Bleeding Controlled with Pressure -Treatment Response Procedure Tolerated Well -Offloading No -Debridement - Subq, 1st 20sq cm Yes Pain Scale: 0-10 Numeric Is Patient Pain Free? Yes DHAVAL - Nurse 3 - General Ulcer D/C NN Start: 06/27/22 08:32 Freq: Status: Active Protocol: Activity Type Activity Date Activity User E-sign Co-sign Detail Recorded Client Recorded Date Recorded By Document 06/27/22 09:01 MW [id number] 06/27/22 09:02 MW 06/27/22 09:01 Wound Care Nurse 3 #1 Chin -Ulcer Cleansing Not Cleansed -Foul Odor after Cleansing No -Negative Pressure Wound Therapy N/A -Primary Dressing Applied Aquacel Extra -Primary Dressing Covered/Secured with Dry Gauze, Secured with Tape -Aquacel Extra 2 Treatment Response Procedure Tolerated Well Pain Scale: 0-10 Numeric Is Patient Pain Free? Yes Teaching: Wound Center Dressing Your Wound -Person Taught Patient,Family -Teaching Method Discussion, Demonstration -Response to teaching Verbalize understanding WC - Visit Discharge Discharge Condition Stable Ambulatory Status Ambulatory Transportation Private Auto Accompanied by daughter Medication Reconcilliation completed & No provided to patient/care provider Clinical Summary of Care Provided Yes Assessment/Plan Assessment/Plan (1) Head and neck cancer: CODE(S): C76.0 - Malignant neoplasm of head, face and neck PLAN: Rinsed the TheraSkin to left jaw area and reapplied wound veil and Aquacel extra over top and then regular dressing. Patient is to leave dressing on for 1 week we will follow-up next Saturday. Patient is to finish antibiotic therapy (2) Delayed surgical wound healing: CODE(S): T81.89XA - Other complications of procedures, not elsewhere classified, initial encounter QUALIFIERS: Encounter type: subsequent encounter Qualified Code(s): T81.89XD - Other complications of procedures, not elsewhere classified, subsequent encounter (3) Nonhealing surgical wound: CODE(S): T81.89XA - Other complications of procedures, not elsewhere classified, initial encounter PLAN: Completely resolved no more treatments necessary
[2022-07-04 08:19] VITALS: BP 132/62; PULSE 71; RESP 18; TEMP 37; BMI 22.3
--- NOTE | 2022-07-04 09:04 | PN.PCM_ITS ---
History of Present Illness Date of Service: 07/04/22 Chief Complaint: Follow-up open surgical wound from cancer of the jaw. 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 Most recent surgery is November 07, 2021 reconstruction of the jaw using bone from his left lower leg but left the neck area open for healing. Progress of Wound: This is the second week for TheraSkin application. Wound looks good still has a little bit of an odor from the skin but doing very well filling in measuring smaller. Had an island off to the side that is healed. Tolerating treatments well Putting absorbent Aquacel extra over top to collect any discharge. Surrounding skin looks better. Subjective Subjective Daughter and patient are happy with results seems to be filling in and depth Objective Data Objective Data Depth is improved measurements are slightly smaller. The TheraSkin took very well this week. We will continue with #3 next week. I rinsed and cleaned up around the edges and reapplied the the veil and Steri-Strips and will again put the extra strength Aquacel extra on top for padding and to keep it clean. Vital Signs: Vital Signs Temp Pulse Resp BP 98.6 F 71 18 132/62 H 07/04/22 08:19 07/04/22 08:19 07/04/22 08:19 07/04/22 08:19 Weight: 130 lb Body Mass Index (BMI) 22.3 Lab / Micro Data Attestation: I reviewed the patient's lab results. Physical Exam Narrative ECOG 1 Hard of hearing Const alert, oriented x3 and no apparent distress General Appearance: cooperative and comfortable HEENT normocephalic HEENT Narrative: Reconstruction of the lower face, soft tissue edema Mouth: No thrush Eyes General Eye: normal appearance of both eyes Conjunctiva: conjunctiva normal Sclera: sclera normal Neck no lymphadenopathy and no JVD Neck Narrative: Postoperative changes and flap. Wound is covered with surgical dressing General: tracheostomy present Lymph Lymphatic: no lymphadenopathy noted Chest Chest: symmetrical chest wall rise Resp Auscultation: diminished lung sounds bilateral and diffuse Cardio regular rate and regular rhythm Jugular Venous Distention: Negative for JVD GI soft to palpation, non-tender and non-distended; Negative for hepatosplenomegaly GI Narrative: PEG tube no CVA tenderness Back/Spine no thoracic nor lumbar tenderness Extremity General Extremity: Negative for clubbing, cyanosis or edema Skin no rashes or lesions noted Neuro oriented x3, CN's II-XII intact bilaterally and moves all extremities Neuro Narrative: Bilateral symmetric wasting of first interosseous muscles. Coordination / Balance: [id number] test normal Speech: speech abnormal Gait (Neuro): normal gait Psych mental status grossly normal, thought process normal, cooperative and affect normal Debridement Note Debridement Note Wound debrided: Left jaw surgical site Post-Debridement Measurements and Additional Note: Post-Debridement Measurements/Treatment - Nurse 1 - General Ulcer Assessment Start: 06/27/22 08:32 Freq: Status: Active Protocol: DHAVALCenoplex Activity Type Activity Date Activity User E-sign Co-sign Detail Recorded Client Recorded Date Recorded By Document 06/27/22 08:32 KR [id number] 06/27/22 08:38 KR Document 07/04/22 08:19 PL [id number] 07/04/22 08:21 PL 06/27/22 07/04/22 08:32 08:19 - Today's Visit Information Type of service Follow-up Visit Follow-up Visit (Physician/APPLICATIONS SPECIALIST (Physician/APPLICATIONS SPECIALIST ) ) Arrival Mode Ambulatory Ambulatory Transfer Assistance None Patient Identification Verified (Name & Yes Yes ) Patient Requires Transmission-Based No Precautions Safety Precautions NA Height and Weight Body Mass Index (BMI) 22.3 22.3 BMI Classification Normal Normal Vital Signs Temperature (97.8 F-99.1 F) 97.6 F L 98.6 F Temperature Source Temporal Temporal Pulse Rate (60-100) 69 71 Pulse Location Monitor Respiratory Rate (12-18) 18 Blood Pressure (90/60-120/80) 131/60 H 132/62 H Blood Pressure Mean (mm Hg) 83 85 Source Monitor Position Sitting Blood Pressure Location Left Arm History Since Last Visit- (Skip if this is Patient's initial visit) Have you changed medications since your No No last visit? Any new allergies or adverse reactions No No Had a fall/change in ADL's that may No No increase risk of falls Signs or symptoms of abuse and/or No No neglect since last visit Have you been in the hospital since your No No last visit? Has dressing in place as prescribed Yes Yes Has compression in place as prescribed N/A Has offloadiing in place as prescribed N/A Experienced any changes in pain level or No management Left Footwear Regular Shoe Right Footwear Regular Shoe Pain Scale: 0-10 Numeric Is Patient Pain Free? Yes Yes WC - Nurse 1 - General Ulcer Measurement Start: 06/27/22 08:32 Freq: Status: Active Protocol: Activity Type Activity Date Activity User E-sign Co-sign Detail Recorded Client Recorded Date Recorded By Document 06/27/22 08:32 [id number] 06/27/22 08:38 KR 06/27/22 08:32 Wound Center Nurse 1 #2- L LAT LE -Current Size (cm) - Length 0.1 -Current Size (cm) - Width 0.1 -Current Size (cm) - Depth 0.1 -Total Square Cm 0.01 -Exudate Amt Medium -Exudate Type Serosanguineous -Wound Margin Distinct, Outline Attached -Granulation Amt Medium (34-66%) -Granulation Quality [place] -Necrosis Amt Small (1-33%) -Necrotic Tissue Type Adherent Slough -Texture (Candace-wound Skin Appearance) Assessed, Scarring -Moisture (Candace-wound Skin Appearance) No Abnormality, Assessed -Color (Candace-wound Skin Appearance) Assessed,Not Assessed -Temperature (Candace-wound Skin No Abnormality Appearance) (Pt Warm) -Tenderness on Palpation (Candace-wound No Skin Appearance) -Ulcer Cleansing Soap and Water -Foul Odor after Cleansing No -Anesthetic Used 5% Lidocaine Gel #1 Chin -Current Size (cm) - Length 3 -Current Size (cm) - Width 4.2 -Current Size (cm) - Depth 0.4 -Total Square Cm 12.6 -Exudate Amt Medium -Exudate Type Serosanguineous -Wound Margin Distinct, Outline Attached -Granulation Amt Medium (34-66%) -Granulation Quality [place] -Necrosis Amt Medium (34-66%) -Necrotic Tissue Type Adherent Slough -Texture (Candace-wound Skin Appearance) Assessed, Scarring -Moisture (Candace-wound Skin Appearance) No Abnormality, Assessed -Color (Candace-wound Skin Appearance) No Abnormality, Assessed -Temperature (Candace-wound Skin No Abnormality Appearance) (Pt Warm) -Tenderness on Palpation (Candace-wound No Skin Appearance) -Ulcer Cleansing Soap and Water -Foul Odor after Cleansing No -Anesthetic Used 5% Lidocaine Gel WC - Nurse 2 - General Ulcer CM Notes Start: 06/27/22 08:32 Freq: Status: Active Protocol: Activity Type Activity Date Activity User E-sign Co-sign Detail Recorded Client Recorded Date Recorded By Document 06/27/22 08:44 MW [id number] 06/27/22 08:50 MW Document 07/04/22 08:45 MW [id number] 07/04/22 08:49 MW 06/27/22 07/04/22 08:44 08:45 Wound Center Nurse 2 #2- L LAT LE -Time 08:50 -Correct Patient Yes -Correct Side, Site, Position Yes -Correct Procedure Yes -Procedure Performed No -Post Debridement (cm) - Length 0 -Post Debridement (cm) - Width 0 -Post Debridement (cm) - Depth 0 -Total Square (Post) (cm) 0 -Wound/Ulcer Outcome Healed- Epithelialized #1 Chin -Time 08:44 08:47 -Correct Patient Yes Yes -Correct Side, Site, Position Yes Yes -Correct Procedure Yes Yes -Procedure Performed Yes No -Type of Procedure Incision & Drainage -Clinical Debridement Subcutaneous -Tissue Removed Subcutaneous -Post Debridement (cm) - Length 3.0 -Post Debridement (cm) - Width 3.0 -Post Debridement (cm) - Depth 0.5 -Total Square (Post) (cm) 9.00 -Area of Debridement (cm) - Length 3.0 -Area of Debridement (cm) - Width 3.0 -Total Square (Area) (cm) 9.00 -Tunneling No No -Undermining/Tunneling No No -Circular Undermining No No -Wound/Ulcer Outcome Not Healed Not Healed -Ulcer Cleansing Rinsed/ Irrigated with Saline -Foul Odor after Cleansing No -Bioengineered Tissue No -Bleeding Controlled with Pressure -Treatment Response Procedure Tolerated Well -Offloading No -Debridement - Subq, 1st 20sq cm Yes Pain Scale: 0-10 Numeric Is Patient Pain Free? Yes Yes DHAVAL - Nurse 3 - General Ulcer D/C NN Start: 06/27/22 08:32 Freq: Status: Active Protocol: Activity Type Activity Date Activity User E-sign Co-sign Detail Recorded Client Recorded Date Recorded By Document 06/27/22 09:01 MW [id number] 06/27/22 09:02 MW Document 07/04/22 08:55 PL [id number] 07/04/22 08:56 PL 06/27/22 07/04/22 09:01 08:55 Wound Care Nurse 3 #1 Chin -Ulcer Cleansing Not Cleansed Not Cleansed -Foul Odor after Cleansing No -Negative Pressure Wound Therapy N/A -Primary Dressing Applied Aquacel Extra Aquacel Extra -Primary Dressing Covered/Secured with Dry Gauze, Dry Gauze, Secured with Secured with Tape Tape -Aquacel Extra 2 1 Treatment Response Procedure Tolerated Well Pain Scale: 0-10 Numeric Is Patient Pain Free? Yes Yes Teaching: Wound Center Dressing Your Wound -Person Taught Patient,Family -Teaching Method Discussion, Demonstration -Response to teaching Verbalize understanding WC - Visit Discharge Discharge Condition Stable Stable Ambulatory Status Ambulatory Ambulatory Transportation Private Auto Private Auto Accompanied by daughter Medication Reconcilliation completed & No provided to patient/care provider Clinical Summary of Care Provided Yes Assessment/Plan Assessment/Plan (1) Head and neck cancer: CODE(S): C76.0 - Malignant neoplasm of head, face and neck PLAN: Rinsed the TheraSkin to left jaw area and reapplied wound veil and Aquacel extra over top and then regular dressing. Patient is to leave dressing on for 1 week we will follow-up next Saturday. (2) Delayed surgical wound healing: CODE(S): T81.89XA - Other complications of procedures, not elsewhere classified, initial encounter QUALIFIERS: Encounter type: subsequent encounter Qualified Code(s): T81.89XD - Other complications of procedures, not elsewhere classified, subsequent encounter (3) Nonhealing surgical wound: CODE(S): T81.89XA - Other complications of procedures, not elsewhere classified, initial encounter PLAN: Completely resolved no more treatments necessary
[2022-07-10 08:41] VITALS: BMI 22.3
--- NOTE | 2022-07-10 12:42 | HP.PCM_ITS ---
History of Present Illness Date of Service: 07/10/22 Chief Complaint: 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 He received courses of chemotherapy followed by radiation treatments, which were concluded by the end of 2017. He recently underwent oral surgery and had 8 teeth extracted. Two extraction sites have failed to heal. On November 07, 2021, the patient underwent reconstruction of the jaw using bone from his left lower leg. He now has a chronic, non-healing surgical wound in the left sub- mandibular area. [facility] Medical History (Updated 07/10/22 @ 13:[address] 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 Thrush, oral Home Medications Levothyroxine 125 mcg PO DAILY thyroid 08/25/20 [History Last Taken Unknown] pentoxifylline 400 mg tablet,extended release 400 mg PO TID radiation fibrosis #90 tabs 05/17/21 [Rx Last Taken Unknown] vitamin E mixed 1,000 unit capsule 1,000 unit PO DAILY radiation fibrosis #30 caps 05/17/21 [Rx Last Taken Unknown] albuterol sulfate 1.25 mg/3 mL solution for nebulization 1.25 mg (3 mL) inhalation Q4H PRN bronchospasm #90 mL 12/10/21 [Rx Last Taken Unknown] amlodipine 5 mg tablet 5 mg PO DAILY bp 01/23/22 [History Last Taken Unknown] fluticasone propionate 50 mcg/actuation nasal spray,suspension 1 spray intranasal DAILY health maintenance 01/23/22 [History Last Taken Unknown] sodium chloride 1,000 mg soluble tablet 3 g PO BID #60 tabs 01/25/22 [Rx Last Taken Unknown] nystatin 100,000 unit/mL oral suspension 1 ml PO Q6H 02/14/22 [History Last Taken Unknown] silver sulfadiazine 1 % topical cream 1 applic topical BID skin peeling #85 grams 03/27/22 [Rx Last Taken Unknown] guaifenesin 100 mg/5 mL oral liquid 200 mg (10 mL) PO Q4H PRN congestion #473 mL 04/30/22 [Rx Last Taken Unknown] oxycodone 5 mg tablet 5 mg PO BID PRN 05/23/22 [History Last Taken Unknown] Allergy/AdvReac Type Severity Reaction Status Date / Time No Known Allergies Allergy Verified 04/30/22 09:01 Family History Mother CVA (cerebral vascular accident) Surgical History history of biopsy neck History of removal of Port-a-Cath Hx of tonsillectomy S/P percutaneous endoscopic gastrostomy (PEG) tube placement (~01/26/19) s/p port placement (~01/26/19) Social History Smoking Status: Former smoker quit date: 09/16/21 Tobacco: How many years used: 30 how long ago did patient quit smokin-4 months ago second hand exposure: Yes alcohol intake: former details: August 2021 substance use type: does not use seatbelt use: sometimes do you feel safe at home: Yes Vital Signs Vital Signs Vital Signs: 07/10/22 08:41 Temperature Source Temporal Blood Pressure Source Monitor Blood Pressure Position Semi-Fowlers Blood Pressure Location Right Arm Weight Weight: 130 lb Body Mass Index (BMI) 22.3 Physical Exam Const alert, oriented x3, no apparent distress and well nourished General Appearance: cooperative, comfortable and well developed Orientation / Consciousness: awake, oriented to person, oriented to place and oriented to time HEENT normocephalic and head/scalp atraumatic Head and Scalp: normal to inspection, normocephalic and atraumatic External Ear: external ears normal Throat: other Other Details: A tracheostomy tube is noted to be in place. Eyes PERRL and EOMs intact bilaterally General Eye: normal appearance of both eyes Resp normal respiratory effort, normal air movement, no retractions and no use of accessory muscles Extremity no calf tenderness General Extremity: Negative for clubbing or cyanosis Skin Wound Narrative: A large open wound is noted in the left submandibular area. Dimensions are documented elsewhere. There is a large amount of necrotic and nonviable tissue at the base of the wound. There is also a disagreeable odor. A nearby tracheostomy tube is noted in the midline. Swab cultures have been obtained, for both aerobic and anaerobic bacterial growth. Neuro oriented x3, CN's II-XII intact bilaterally and moves all extremities Sensorium / Orientation: awake, alert, oriented to person, oriented to place and oriented to time Psych Appearance: grossly normal and appropriate Attitude: calm Activity / Motor Behavior: appropriate eye contact Speech: normal speech Mood & Affect: euthymic mood Thought Process: normal thought process Thought Content: normal thought content Attention / Concentration: attention grossly intact Debridement Note Debridement Note Wound debrided: Post-surgical left submandibular wound Laterality: Left Type of Debridement: Excisional debridement Anesthesia Used: 5% Lidocaine Gel Depth: Down to and including healthy tissue and in the subcutaneous layer Percentage of wound debrided: 100 Instrument Used: 5mm curette Tissue Removed: Frankly necrotic, nonviable tissue Severity: Fat Layer Exposed Amount of bleeding with debridement: Mild Bleeding Controlled with: Compression and gauze Patient tolerated procedure: Patient tolerated procedure well Debridement Free Text: Because of the amount of necrotic and nonviable tissue, as well as disagreeable odor, swab cultures were obtained for aerobic and anaerobic bacterial growth. Post-Debridement Measurements and Additional Note: Post-Debridement Measurements/Treatment - Nurse 1 - General Ulcer Assessment Start: 06/27/22 08:32 Freq: Status: Active Protocol: BRANDAN Activity Type Activity Date Activity User E-sign Co-sign Detail Recorded Client Recorded Date Recorded By Document 06/27/22 08:32 KR [id number] 06/27/22 08:38 KR Document 07/04/22 08:19 PL [id number] 07/04/22 08:21 PL Document 07/10/22 08:41 KR [id number] 07/10/22 08:45 KR 06/27/22 07/04/22 07/10/22 08:32 08:19 08:41 - Today's Visit Information Type of service Follow-up Visit Follow-up Visit Follow-up Visit (Physician/GEOTECHNICIAN (Physician/GEOTECHNICIAN (Physician/GEOTECHNICIAN ) ) ) Arrival Mode Ambulatory Ambulatory Ambulatory Transfer Assistance None Patient Identification Verified (Name & Yes Yes Yes ) Patient Requires Transmission-Based No Precautions Safety Precautions NA Height and Weight Body Mass Index (BMI) 22.3 22.3 22.3 BMI Classification Normal Normal Normal Vital Signs Temperature (97.8 F-99.1 F) 97.6 F L 98.6 F Temperature Source Temporal Temporal Temporal Pulse Rate (60-100) 69 71 Pulse Location Monitor Monitor Respiratory Rate (12-18) 18 Blood Pressure (90/60-120/80) 131/60 H 132/62 H Blood Pressure Mean 83 85 Source Monitor Monitor Position Sitting Semi-Fowlers Blood Pressure Location Left Arm Right Arm History Since Last Visit- (Skip if this is Patient's initial visit) Have you changed medications since your No No No last visit? Any new allergies or adverse reactions No No No Had a fall/change in ADL's that may No No No increase risk of falls Signs or symptoms of abuse and/or No No No neglect since last visit Have you been in the hospital since your No No No last visit? Has dressing in place as prescribed Yes Yes Yes Has compression in place as prescribed N/A N/A Has offloadiing in place as prescribed N/A N/A Experienced any changes in pain level or No No management Left Footwear Regular Shoe Regular Shoe Right Footwear Regular Shoe Regular Shoe Pain Scale: 0-10 Numeric Is Patient Pain Free? Yes Yes Yes WC - Nurse 1 - General Ulcer Measurement Start: 06/27/22 08:32 Freq: Status: Active Protocol: Activity Type Activity Date Activity User E-sign Co-sign Detail Recorded Client Recorded Date Recorded By Document 06/27/22 08:32 PALMIRA [id number] 06/27/22 08:38 KR Document 07/10/22 08:41 PALMIRA [id number] 07/10/22 08:45 KR 06/27/22 07/10/22 08:32 08:41 Wound Center Nurse 1 #2- L LAT LE -Current Size (cm) - Length 0.1 -Current Size (cm) - Width 0.1 -Current Size (cm) - Depth 0.1 -Total Square Cm 0.01 -Exudate Amt Medium -Exudate Type Serosanguineous -Wound Margin Distinct, Outline Attached -Granulation Amt Medium (34-66%) -Granulation Quality Brilliant -Necrosis Amt Small (1-33%) -Necrotic Tissue Type Adherent Slough -Texture (Candace-wound Skin Appearance) Assessed, Scarring -Moisture (Candace-wound Skin Appearance) No Abnormality, Assessed -Color (Candace-wound Skin Appearance) Assessed,Not Assessed -Temperature (Candace-wound Skin No Abnormality Appearance) (Pt Warm) -Tenderness on Palpation (Candace-wound No Skin Appearance) -Ulcer Cleansing Soap and Water -Foul Odor after Cleansing No -Anesthetic Used 5% Lidocaine Gel #1 Chin -Current Size (cm) - Length 3 2.4 -Current Size (cm) - Width 4.2 1.1 -Current Size (cm) - Depth 0.4 0.2 -Total Square Cm 12.6 2.64 -Photo Taken Yes -Exudate Amt Medium Medium -Exudate Type Serosanguineous Serosanguineous -Wound Margin Distinct, Distinct, Outline Outline Attached Attached -Granulation Amt Medium (34-66%) None Present (0 %) -Granulation Quality Brilliant -Necrosis Amt Medium (34-66%) Large (67-100%) -Necrotic Tissue Type Adherent Slough Adherent Slough -Structure Exposed N/A -Texture (Candace-wound Skin Appearance) Assessed, Localized Edema Scarring ,Scarring -Moisture (Candace-wound Skin Appearance) No Abnormality, No Abnormality Assessed -Color (Candace-wound Skin Appearance) No Abnormality, No Abnormality, Assessed Assessed, Erythema -Temperature (Candace-wound Skin No Abnormality No Abnormality Appearance) (Pt Warm) (Pt Warm) -Tenderness on Palpation (Candace-wound No No Skin Appearance) -Ulcer Cleansing Soap and Water Soap and Water -Foul Odor after Cleansing No No -Anesthetic Used 5% Lidocaine 5% Lidocaine Gel Gel WC - Nurse 2 - General Ulcer CM Notes Start: 06/27/22 08:32 Freq: Status: Active Protocol: Activity Type Activity Date Activity User E-sign Co-sign Detail Recorded Client Recorded Date Recorded By Document 06/27/22 08:44 MW [id number] 06/27/22 08:50 MW Document 07/04/22 08:45 MW [id number] 07/04/22 08:49 MW Document 07/10/22 10:59 PL [id number] 07/10/22 10:59 PL 06/27/22 07/04/22 07/10/22 08:44 08:45 10:59 Wound Center Nurse 2 #2- L LAT LE -Time 08:50 -Correct Patient Yes -Correct Side, Site, Position Yes -Correct Procedure Yes -Procedure Performed No -Post Debridement (cm) - Length 0 -Post Debridement (cm) - Width 0 -Post Debridement (cm) - Depth 0 -Total Square (Post) (cm) 0 -Wound/Ulcer Outcome Healed- Epithelialized #1 Chin -Time 08:44 08:47 08:46 -Correct Patient Yes Yes Yes -Correct Side, Site, Position Yes Yes Yes -Correct Procedure Yes Yes Yes -Procedure Performed Yes No Yes -Type of Procedure Incision & Debridement Drainage -Clinical Debridement Subcutaneous Subcutaneous -Tissue Removed Subcutaneous Subcutaneous -Post Debridement (cm) - Length 3.0 2.4 -Post Debridement (cm) - Width 3.0 1.1 -Post Debridement (cm) - Depth 0.5 0.2 -Total Square (Post) (cm) 9.00 2.64 -Area of Debridement (cm) - Length 3.0 2.4 -Area of Debridement (cm) - Width 3.0 1.1 -Total Square (Area) (cm) 9.00 2.64 -Tunneling No No No -Undermining/Tunneling No No No -Circular Undermining No No No -Wound/Ulcer Outcome Not Healed Not Healed Healed- Surgical Closure -Ulcer Cleansing Rinsed/ Irrigated with Saline -Foul Odor after Cleansing No No -Bioengineered Tissue No No -Bleeding Controlled with Pressure Pressure -Treatment Response Procedure Procedure Tolerated Well Tolerated Well -Offloading No -Debridement - Subq, 1st 20sq cm Yes Yes Pain Scale: 0-10 Numeric Is Patient Pain Free? Yes Yes Yes WC - Nurse 3 - General Ulcer D/C NN Start: 06/27/22 08:32 Freq: Status: Active Protocol: Activity Type Activity Date Activity User E-sign Co-sign Detail Recorded Client Recorded Date Recorded By Document 06/27/22 09:01 MW [id number] 06/27/22 09:02 MW Document 07/04/22 08:55 PL [id number] 07/04/22 08:56 PL Document 07/10/22 09:14 KR [id number] 07/10/22 09:14 KR 06/27/22 07/04/22 07/10/22 09:01 08:55 09:14 Wound Care Nurse 3 #1 Chin -Ulcer Cleansing Not Cleansed Not Cleansed Rinsed/ Irrigated with Saline -Foul Odor after Cleansing No -Negative Pressure Wound Therapy N/A -Primary Dressing Applied Aquacel Extra Aquacel Extra C Hydrogel ($) -Primary Dressing Covered/Secured with Dry Gauze, Dry Gauze, Dry Gauze, Secured with Secured with Secured with Tape Tape Tape -Aquacel Extra 2 1 Treatment Response Procedure Tolerated Well Pain Scale: 0-10 Numeric Is Patient Pain Free? Yes Yes Yes Teaching: Wound Center Dressing Your Wound -Person Taught Patient,Family -Teaching Method Discussion, Demonstration -Response to teaching Verbalize understanding WC - Visit Discharge Discharge Condition Stable Stable Stable Ambulatory Status Ambulatory Ambulatory Ambulatory Transportation Private Auto Private Auto Private Auto Accompanied by daughter daughter Medication Reconcilliation completed & No provided to patient/care provider Clinical Summary of Care Provided Yes Assessment/Plan Assessment/Plan (1) Head and neck cancer: CODE(S): C76.0 - Malignant neoplasm of head, face and neck PLAN: Rinsed the TheraSkin to left jaw area and reapplied wound veil and Aquacel extra over top and then regular dressing. Patient is to leave dressing on for 1 week we will follow-up next Saturday. (2) Delayed surgical wound healing: CODE(S): T81.89XA - Other complications of procedures, not elsewhere clas sified, initial encounter QUALIFIERS: Encounter type: initial encounter Qualified Code(s): T81.89XA - Other complications of procedures, not elsewhere classified, initial encounter (3) Nonhealing surgical wound: CODE(S): T81.89XA - Other complications of procedures, not elsewhere classified, initial encounter QUALIFIERS: Encounter type: initial encounter Qualified Code(s): T81.89XA - Other complications of procedures, not elsewhere classified, initial encounter (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 PLAN: Plan This is a 62-year-old male with history of throat cancer who has undergone previous chemotherapy and radiation therapy treatments. He has undergone ext raction of multiple teeth, with several sites which have failed to heal. A definitive excision of the mandible with reconstructive surgery has been performed, and a portion of the surgical site has failed to heal. Upon evaluation today, the open wound, which has recently been treated with 2 applications of a TheraSkin allograft, demonstrates a large amount of necrotic and nonviable tissue, associated with a disagreeable odor. Swab cultures have been obtained for aerobic and anaerobic growth. An excisional debridement has been performed, though necrotic and nonviable tissue remains. Therefore, a transition is to be made to the use of collagenase Santyl, which will be applied topically on a daily basis. The patient has previously utilized collagenase Santyl, and is familiar with its application. Upon topical application of collagenase Santyl, the wound cavity is to be packed with dry sterile gauze. Patient's daughter is to assist the patient in his daily wound management. Patient is to return in 1 week for reevaluation by his regular wound care provider. Patient may, in fact, be a candidate for hyperbaric oxygen therapy, as the chronic, nonhealing wound appears to be in a field which has previously undergone irradiation. Hyperbaric oxygen therapy may be indicated under such circumstances. Total time: 35 minutes
[2022-07-18 08:31] VITALS: BP 133/57; PULSE 81; TEMP 36.1; BMI 22.3
--- NOTE | 2022-07-18 10:23 | PCM.WC.PN ---
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 He received courses of chemotherapy followed by radiation treatments, which were concluded by the end of 2017. He recently underwent oral surgery and had 8 teeth extracted. Two extraction sites have failed to heal. On November 07, 2021, the patient underwent reconstruction of the jaw using bone from his left lower leg. 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 Progress of Wound: Patient was seen by another provider last week. They remove the TheraSkin because of the odor. Still had a lot of slough that had developed. Cultures were obtained patient is being treated for bacteria and cocci. [facility] this week. This week it looks very good filling in nicely measurements are smaller no odor. Patient is to start antibiotics and Flagyl today. Subjective Subjective Daughter and he are very pleased with how it looks and doing Objective Data Objective Data Debrided a lot of slough that was soft and moist there was no odor in the wound today. Got it down to good granulating tissue. Measurements were much smaller than what I was getting. We will get him back on the antibiotics to clear up the infection and go back to the TheraSkin. Vital Signs: Vital Signs Temp Pulse Resp BP 96.9 F L 81 18 133/57 H 07/18/22 08:31 07/18/22 08:31 07/04/22 08:19 07/18/22 08:31 Weight: 130 lb Body Mass Index (BMI) 22.3 Lab / Micro Data Micro: Microbiology 07/10/22 08:55 Wound Abcess - Face Gram Stain - Final 07/10/22 08:55 Wound Abcess - Face Wound Culture - Final Pseudomonas aeroginosa Streptococcus agalactiae (B) 07/10/22 08:55 Wound Abcess - Face Anaerobic Culture - Final Anaerobic cocci Physical Exam Const alert, oriented x3, no apparent distress and well nourished General Appearance: cooperative, comfortable and well developed Orientation / Consciousness: awake, oriented to person, oriented to place and oriented to time HEENT normocephalic and head/scalp atraumatic Head and Scalp: normal to inspection, normocephalic and atraumatic External Ear: external ears normal Throat: other Other Details: A tracheostomy tube is noted to be in place. Eyes PERRL and EOMs intact bilaterally General Eye: normal appearance of both eyes Resp normal respiratory effort, normal air movement, no retractions and no use of accessory muscles Extremity no calf tenderness General Extremity: Negative for clubbing or cyanosis Skin Wound Narrative: A large open wound is noted in the left submandibular area. Dimensions are documented elsewhere. There is a large amount of necrotic and nonviable tissue at the base of the wound. There is also a disagreeable odor. A nearby tracheostomy tube is noted in the midline. Swab cultures have been obtained, for both aerobic and anaerobic bacterial growth. Neuro oriented x3, CN's II-XII intact bilaterally and moves all extremities Sensorium / Orientation: awake, alert, oriented to person, oriented to place and oriented to time Psych Appearance: grossly normal and appropriate Attitude: calm Activity / Motor Behavior: appropriate eye contact Speech: normal speech Mood & Affect: euthymic mood Thought Process: normal thought process Thought Content: normal thought content Attention / Concentration: attention grossly intact Debridement Note Debridement Note Wound debrided: Left lower jaw nonhealing surgical wound from cancer Laterality: Left Type of Debridement: Excisional debridement Anesthesia Used: 5% Lidocaine Gel Depth: in the subcutaneous layer and to muscle Percentage of wound debrided: 100 Instrument Used: 5mm curette Tissue Removed: Slough and fibrin Severity: Fat Layer Exposed Amount of bleeding with debridement: Mild Bleeding Controlled with: Compression and gauze Patient tolerated procedure: Patient tolerated procedure well Post-Debridement Measurements and Additional Note: Post-Debridement Measurements/Treatment WC - Nurse 1 - General Ulcer Assessment Start: 06/27/22 08:32 Freq: Status: Active Protocol: DHAVAL.ROXANA Activity Type Activity Date Activity User E-sign Co-sign Detail Recorded Client Recorded Date Recorded By Document 06/27/22 08:32 KR [id number] 06/27/22 08:38 KR Document 07/04/22 08:19 PL [id number] 07/04/22 08:21 PL Document 07/10/22 08:41 KR [id number] 07/10/22 08:45 KR Document 07/18/22 08:31 AK [id number] 07/18/22 08:37 AK 06/27/22 07/04/22 07/10/22 08:32 08:19 08:41 - Today's Visit Information Type of service Follow-up Visit Follow-up Visit Follow-up Visit (Physician/SCRATCHER TENDER (Physician/SCRATCHER TENDER (Physician/SCRATCHER TENDER ) ) ) Arrival Mode Ambulatory Ambulatory Ambulatory Transfer Assistance None Patient Identification Verified (Name & Yes Yes Yes ) Patient Requires Transmission-Based No Precautions Safety Precautions NA Height and Weight Body Mass Index (BMI) 22.3 22.3 22.3 BMI Classification Normal Normal Normal Vital Signs Temperature (97.8 F-99.1 F) 97.6 F L 98.6 F Temperature Source Temporal Temporal Temporal Pulse Rate (60-100) 69 71 Pulse Location Monitor Monitor Respiratory Rate (12-18) 18 Blood Pressure (90/60-120/80) 131/60 H 132/62 H Blood Pressure Mean (mm Hg) 83 85 Source Monitor Monitor Position Sitting Semi-Fowlers Blood Pressure Location Left Arm Right Arm History Since Last Visit- (Skip if this is Patient's initial visit) Have you changed medications since your No No No last visit? Any new allergies or adverse reactions No No No Had a fall/change in ADL's that may No No No increase risk of falls Signs or symptoms of abuse and/or No No No neglect since last visit Have you been in the hospital since your No No No last visit? Has dressing in place as prescribed Yes Yes Yes Has compression in place as prescribed N/A N/A Has offloadiing in place as prescribed N/A N/A Experienced any changes in pain level or No No management Left Footwear Regular Shoe Regular Shoe Right Footwear Regular Shoe Regular Shoe Pain Scale: 0-10 Numeric Is Patient Pain Free? Yes Yes Yes 07/18/22 08:31 - Today's Visit Information Type of service Follow-up Visit (Physician/SCRATCHER TENDER ) Arrival Mode Ambulatory Transfer Assistance Patient Identification Verified (Name & Yes ) Patient Requires Transmission-Based Precautions Safety Precautions Height and Weight Body Mass Index (BMI) 22.3 BMI Classification Normal Vital Signs Temperature (97.8 F-99.1 F) 96.9 F L Temperature Source Temporal Pulse Rate (60-100) 81 Pulse Location Monitor Respiratory Rate (12-18) Blood Pressure (90/60-120/80) 133/57 H Blood Pressure Mean (mm Hg) 82 Source Monitor Position Blood Pressure Location History Since Last Visit- (Skip if this is Patient's initial visit) Have you changed medications since your No last visit? Any new allergies or adverse reactions No Had a fall/change in ADL's that may No increase risk of falls Signs or symptoms of abuse and/or No neglect since last visit Have you been in the hospital since your No last visit? Has dressing in place as prescribed Yes Has compression in place as prescribed N/A Has offloadiing in place as prescribed N/A Experienced any changes in pain level or No management Left Footwear Regular Shoe Right Footwear Regular Shoe Pain Scale: 0-10 Numeric Is Patient Pain Free? No WC - Nurse 1 - General Ulcer Measurement Start: 06/27/22 08:32 Freq: Status: Active Protocol: Activity Type Activity Date Activity User E-sign Co-sign Detail Recorded Client Recorded Date Recorded By Document 06/27/22 08:32 KR [id number] 06/27/22 08:38 KR Document 07/10/22 08:41 KR [id number] 07/10/22 08:45 KR Document 07/18/22 08:31 AK [id number] 07/18/22 08:37 AK 06/27/22 07/10/22 07/18/22 08:32 08:41 08:31 Wound Center Nurse 1 #2- L LAT LE -Current Size (cm) - Length 0.1 -Current Size (cm) - Width 0.1 -Current Size (cm) - Depth 0.1 -Total Square Cm 0.01 -Exudate Amt Medium -Exudate Type Serosanguineous -Wound Margin Distinct, Outline Attached -Granulation Amt Medium (34-66%) -Granulation Quality Bradford -Necrosis Amt Small (1-33%) -Necrotic Tissue Type Adherent Slough -Texture (Candace-wound Skin Appearance) Assessed, Scarring -Moisture (Candace-wound Skin Appearance) No Abnormality, Assessed -Color (Candace-wound Skin Appearance) Assessed,Not Assessed -Temperature (Candace-wound Skin No Abnormality Appearance) (Pt Warm) -Tenderness on Palpation (Candace-wound No Skin Appearance) -Ulcer Cleansing Soap and Water -Foul Odor after Cleansing No -Anesthetic Used 5% Lidocaine Gel #1 Chin -Combined with other wound No -Current Size (cm) - Length 3 2.4 2.5 -Current Size (cm) - Width 4.2 1.1 2.5 -Current Size (cm) - Depth 0.4 0.2 0.3 -Total Square Cm 12.6 2.64 6.25 -Photo Taken Yes No -Tunneling No -Undermining/Tunneling No -Circular Undermining No -Change in Wound Grade/Stage No -Exudate Amt Medium Medium Small -Exudate Type Serosanguineous Serosanguineous Serosanguineous -Wound Margin Distinct, Distinct, Distinct, Outline Outline Outline Attached Attached Attached -Granulation Amt Medium (34-66%) None Present (0 None Present (0 %) %) -Granulation Quality Bradford -Slough/Fibrin Yes -Necrosis Amt Medium (34-66%) Large (67-100%) Large (67-100%) -Necrotic Tissue Type Adherent Slough Adherent Slough Adherent Slough -Structure Exposed N/A N/A -Texture (Candace-wound Skin Appearance) Assessed, Localized Edema No Abnormality, Scarring ,Scarring Assessed -Moisture (Candace-wound Skin Appearance) No Abnormality, No Abnormality No Abnormality, Assessed Assessed -Color (Candace-wound Skin Appearance) No Abnormality, No Abnormality, No Abnormality, Assessed Assessed, Assessed Erythema -Temperature (Candace-wound Skin No Abnormality No Abnormality No Abnormality Appearance) (Pt Warm) (Pt Warm) (Pt Warm) -Tenderness on Palpation (Candace-wound No No No Skin Appearance) -Ulcer Cleansing Soap and Water Soap and Water Soap and Water -Foul Odor after Cleansing No No No -Anesthetic Used 5% Lidocaine 5% Lidocaine 5% Lidocaine Gel Gel Gel WC - Nurse 2 - General Ulcer CM Notes Start: 06/27/22 08:32 Freq: Status: Active Protocol: Activity Type Activity Date Activity User E-sign Co-sign Detail Recorded Client Recorded Date Recorded By Document 06/27/22 08:44 MW [id number] 06/27/22 08:50 MW Document 07/04/22 08:45 MW [id number] 07/04/22 08:49 MW Document 07/10/22 10:59 PL [id number] 07/10/22 10:59 PL Document 07/18/22 08:52 MW [id number] 07/18/22 08:56 MW 06/27/22 07/04/22 07/10/22 08:44 08:45 10:59 Wound Center Nurse 2 #2- L LAT LE -Time 08:50 -Correct Patient Yes -Correct Side, Site, Position Yes -Correct Procedure Yes -Procedure Performed No -Post Debridement (cm) - Length 0 -Post Debridement (cm) - Width 0 -Post Debridement (cm) - Depth 0 -Total Square (Post) (cm) 0 -Wound/Ulcer Outcome Healed- Epithelialized #1 Chin -Time 08:44 08:47 08:46 -Correct Patient Yes Yes Yes -Correct Side, Site, Position Yes Yes Yes -Correct Procedure Yes Yes Yes -Procedure Performed Yes No Yes -Type of Procedure Incision & Debridement Drainage -Clinical Debridement Subcutaneous Subcutaneous -Tissue Removed Subcutaneous Subcutaneous -Post Debridement (cm) - Length 3.0 2.4 -Post Debridement (cm) - Width 3.0 1.1 -Post Debridement (cm) - Depth 0.5 0.2 -Total Square (Post) (cm) 9.00 2.64 -Area of Debridement (cm) - Length 3.0 2.4 -Area of Debridement (cm) - Width 3.0 1.1 -Total Square (Area) (cm) 9.00 2.64 -Tunneling No No No -Undermining/Tunneling No No No -Circular Undermining No No No -Wound/Ulcer Outcome Not Healed Not Healed Healed- Surgical Closure -Ulcer Cleansing Rinsed/ Irrigated with Saline -Foul Odor after Cleansing No No -Bioengineered Tissue No No -Bleeding Controlled with Pressure Pressure -Treatment Response Procedure Procedure Tolerated Well Tolerated Well -Offloading No -Debridement - Subq, 1st 20sq cm Yes Yes Pain Scale: 0-10 Numeric Is Patient Pain Free? Yes Yes Yes 07/18/22 08:52 Wound Center Nurse 2 #2- L LAT LE -Time -Correct Patient -Correct Side, Site, Position -Correct Procedure -Procedure Performed -Post Debridement (cm) - Length -Post Debridement (cm) - Width -Post Debridement (cm) - Depth -Total Square (Post) (cm) -Wound/Ulcer Outcome #1 Chin -Time 08:52 -Correct Patient Yes -Correct Side, Site, Position Yes -Correct Procedure Yes -Procedure Performed Yes -Type of Procedure Debridement -Clinical Debridement Subcutaneous -Tissue Removed Subcutaneous -Post Debridement (cm) - Length 2.9 -Post Debridement (cm) - Width 4.3 -Post Debridement (cm) - Depth 1.0 -Total Square (Post) (cm) 12.47 -Area of Debridement (cm) - Length 2.9 -Area of Debridement (cm) - Width 4.3 -Total Square (Area) (cm) 12.47 -Tunneling No -Undermining/Tunneling No -Circular Undermining No -Wound/Ulcer Outcome Not Healed -Ulcer Cleansing Rinsed/ Irrigated with Saline -Foul Odor after Cleansing No -Bioengineered Tissue No -Bleeding Controlled with Pressure -Treatment Response Procedure Tolerated Well -Offloading No -Debridement - Subq, 1st 20sq cm Yes Pain Scale: 0-10 Numeric Is Patient Pain Free? Yes - Nurse 3 - General Ulcer D/C NN Start: 06/27/22 08:32 Freq: Status: Active Protocol: Activity Type Activity Date Activity User E-sign Co-sign Detail Recorded Client Recorded Date Recorded By Document 06/27/22 09:01 MW [id number] 06/27/22 09:02 MW Document 07/04/22 08:55 PL [id number] 07/04/22 08:56 PL Document 07/10/22 09:14 KR [id number] 07/10/22 09:14 KR Document 07/18/22 09:09 DL [id number] 07/18/22 09:10 DL 06/27/22 07/04/22 07/10/22 09:01 08:55 09:14 Wound Care Nurse 3 #1 Chin -Ulcer Cleansing Not Cleansed Not Cleansed Rinsed/ Irrigated with Saline -Foul Odor after Cleansing No -Negative Pressure Wound Therapy N/A -Primary Dressing Applied Aquacel Extra Aquacel Extra C Hydrogel ($) -Other Dressing -Primary Dressing Covered/Secured with Dry Gauze, Dry Gauze, Dry Gauze, Secured with Secured with Secured with Tape Tape Tape -Aquacel Extra 2 1 Treatment Response Procedure Tolerated Well Pain Scale: 0-10 Numeric Is Patient Pain Free? Yes Yes Yes Teaching: Wound Center Dressing Your Wound -Person Taught Patient,Family -Teaching Method Discussion, Demonstration -Response to teaching Verbalize understanding WC - Visit Discharge Discharge Condition Stable Stable Stable Ambulatory Status Ambulatory Ambulatory Ambulatory Transportation Private Auto Private Auto Private Auto Accompanied by daughter daughter Medication Reconcilliation completed & No provided to patient/care provider Clinical Summary of Care Provided Yes Notes: Facility Type Orders Sent 07/18/22 09:09 Wound Care Nurse 3 #1 Chin -Ulcer Cleansing Rinsed/ Irrigated with Saline -Foul Odor after Cleansing No -Negative Pressure Wound Therapy -Primary Dressing Applied -Other Dressing moist dressing -Primary Dressing Covered/Secured with Dry Gauze, Secured with Tape -Aquacel Extra Treatment Response Procedure Tolerated Well Pain Scale: 0-10 Numeric Is Patient Pain Free? Yes Teaching: Wound Center Dressing Your Wound -Person Taught -Teaching Method -Response to teaching WC - Visit Discharge Discharge Condition Stable Ambulatory Status Ambulatory Transportation Private Auto Accompanied by Medication Reconcilliation completed & provided to patient/care provider Clinical Summary of Care Provided Notes: Pt to resume Santyl at home. Facility Type Home Health Orders Sent Yes Assessment/Plan Assessment/Plan (1) Head and neck cancer: CODE(S): C76.0 - Malignant neoplasm of head, face and neck (2) Delayed surgical wound healing: CODE(S): T81.89XA - Other complications of procedures, not elsewhere classified, initial encounter QUALIFIERS: Encounter type: initial encounter Qualified Code(s): T81.89XA - Other complications of procedures, not elsewhere classified, initial encounter PLAN: Wash area with Hibiclens pat dry apply Santyl nickel thickness to base of wound cover with gauze and tape Start antibiotics of ciprofloxacin and metronidazole. 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
== END 2022-07-23 23:59 | disposition home or self-care (01) ==
LOC: WC 08:30
PROVIDERS: PCP Nurse Practitioner; Referring Provider Nurse Practitioner; Visit Provider Nurse Practitioner
DX: T81.89XA Other complications of procedures, not elsewhere classified, initial encounter (principal); Z93.0 Tracheostomy status; Y83.8 Other surgical procedures as the cause of abnormal reaction of the patient, or of later complication, without mention of misadventure at the time of the procedure; L59.8 Other specified disorders of the skin and subcutaneous tissue related to radiation; Y84.2 Radiological procedure and radiotherapy as the cause of abnormal reaction of the patient, or of later complication, without mention of misadventure at the time of the procedure; I10 Essential (primary) hypertension; Z79.890 Hormone replacement therapy; Z79.899 Other long term (current) drug therapy; Z87.891 Personal history of nicotine dependence; Z92.21 Personal history of antineoplastic chemotherapy; Z92.3 Personal history of irradiation; Z85.89 Personal history of malignant neoplasm of other organs and systems
CPT/HCPCS: 11042; 87070; 87075; 87077; 87186; 87205; 99213; G0463

== ENCOUNTER → 2022-07-24 | Outpatient (CLI) | payer OTHER, SELFPAY ==
[2022-01-31 09:09] VITALS: BMI 22.6
--- NOTE | 2022-07-24 07:14 | CT_ITS ---
STUDY: CT SOFT TISSUE NECK WITH CONTRAST REASON FOR EXAM: Male, 62 years old. F/U RECURRENT HEAD AND NECK CANCER RADIATION DOSAGE (If Supplied By Facility): CTDIvol = ( 10.71 ) mGy, DLP = ( 559.49 ) mGycm TECHNIQUE: The patient was scanned in a multi-detector CT scanner. High resolution transaxial imaging was performed following intravenous administration of IV 100mL Isovue-300. Sagittal and coronal images were reconstructed. Individualized dose optimization techniques were used for this CT. COMPARISON: Comparison is made with prior study dated 08/23/2021. FINDINGS: A tracheostomy tube is seen within the trachea. There is diffuse skin thickening with increased markings in the subcutaneous tissues involving the facial region as well as the cervical region bilaterally. Since prior study, the patient underwent surgical fusion of the anterior aspect of the mandible using plate and screw fixation device as well as a bone graft. The previously seen destructive lesion at that site has been resected. Multiple surgical clips are seen in the submandibular region. Normal bilateral parotid glands. Normal bilateral manager building spaces. Normal bilateral parapharyngeal spaces. Normal bilateral carotid spaces. Normal bilateral sublingual and submandibular glands and spaces. Normal visualized nasopharynx. Normal retropharyngeal space. Normal perivertebral space. Normal visualized bilateral faucial tonsils. The visualized tongue, tongue base and oropharynx are normal. The visualized cervical lymph nodes (levels I-) are within normal size limits, and maintain normal morphology. There is no demonstrated solid or cystic mass lesion. There is no abnormal contrast enhancement. Normal epiglottis, bilateral vallecula and hypopharynx. The pre-epiglottic and paraglottic adipose spaces are normal. Normal visualized bilateral piriform sinuses, aryepiglottic folds, vocal cords, and arytenoid-cricoid articulations. Normal subglottic trachea. Normal bilateral lobes of the thyroid gland. Normal visualized pulmonary apices. Partial opacification of the maxillary sinuses bilaterally. There is multilevel degenerative changes of the cervical spine. CT/Soft Tissue Neck WITH Contrast IMPRESSION: Status post resection of the destructive mass lesion in the anterior midportion of the mandible with bony destruction. Diffuse edematous changes with skin thickening of the visualized cervical region. Electronically Signed: Bib Reeves MD at 15:31 EDT ,
--- NOTE | 2022-07-24 07:14 | CT_ITS ---
STUDY: CT CHEST WITH CONTRAST REASON FOR EXAM: Male, 62 years old. F/U RECURRENT HEAD AND NECK CANCER RADIATION DOSAGE (If Supplied By Facility): CTDIvol = ( 10.71 ) mGy, DLP = ( 559.49 ) mGycm TECHNIQUE: Transaxial imaging was performed following intravenous administration of IV 100mL Isovue-300. Multiplanar coronal and sagittal images were reformatted. Individualized dose optimization techniques were used for this CT. COMPARISON: Comparison is made with prior study 02/27/2021. FINDINGS: CHEST A tracheostomy tube is in situ. Hyperinflation. Mild degree of emphysematous changes with scarring in the anterior aspect of the right lung apex. Stable 5.4 mm noncalcified nodule in the lateral aspect of the right upper lobe as seen on axial image #77 and coronal image #89. There is no demonstrated pleural abnormality. Normal heart and pericardium. Normal mediastinum. Normal hilar regions. Normal unenhanced pulmonary arteries. Normal aorta arch and descending thoracic aorta. There are multi-level degenerative changes of the thoracic spine. Increased kyphosis. There is no demonstrated abnormality of the visualized upper abdomen. CT/Chest WITH Contrast IMPRESSION: Hyperinflation and mild degree of the emphysematous changes. There has been no change. Electronically Signed: Bib Reeves MD at 13:10 EDT ,
[2022-07-24 07:41] LABS: CREATININE FINGERSTICK < 0.9 mg/dL (0.70-1.30); EGFR FINGERSTICK > 60.0000 mL/min (>60)
== END | disposition home or self-care (01) ==
LOC: CT 07:13
PROVIDERS: PCP Nurse Practitioner; Visit Provider Internal Medicine Hematology & Oncology
DX: C76.0 Malignant neoplasm of head, face and neck (principal)
CPT/HCPCS: 70491; 71260; Q9967

== ENCOUNTER 2022-08-22 08:30 | Outpatient (RCR) | payer OTHER, SELFPAY ==
[2022-01-31 09:09] VITALS: BMI 22.6
[2022-07-24 00:14] VITALS: BP 133/57; PULSE 81; RESP 18; TEMP 36.1; BMI 22.3
[2022-08-01 08:30] VITALS: BP 110/64; PULSE 75; RESP 18; TEMP 36.1; BMI 22.3
--- NOTE | 2022-08-01 10:52 | PN.PCM_ITS ---
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 He received courses of chemotherapy followed by radiation treatments, which were concluded by the end of 2017. He recently underwent oral surgery and had 8 teeth extracted. Two extraction sites have failed to heal. On November 07, 2021, the patient underwent reconstruction of the jaw using bone from his left lower leg. He now has a chronic, non-healing surgical wound in the left sub- mandibular area. Progress of Wound: We obtained free TheraSkin graft sites for the chin area. Patient still develops a lot of slough over the skin area but has new skin bumps showing new cellular growth. We have been using Santyl for the last 2 weeks that has debrided a lot of the slough off to the new skin. We applied the third and last TheraSkin to the area and we will look at it next week. Measurements are slightly smaller from 2 weeks ago. No odor patient is to start his second antibiotic this week Subjective Subjective Patient is happy with results so far so his daughter Objective Data Objective Data As stated above we will apply the third TheraSkin to the left jaw area after a vigorous debridement of slough and some fibrin. No odor noted no red streaks in the area skin surrounding wound is slightly erythematous. Vital Signs: Vital Signs Temp Pulse Resp BP O2 Del Method 97 F L 75 18 110/64 Room Air 08/01/22 08:30 08/01/22 08:30 08/01/22 08:30 08/01/22 08:30 08/01/22 08:30 Oxygen Delivery Method Room Air Weight: 130 lb Body Mass Index (BMI) 22.3 Lab / Micro Data Attestation: I reviewed the patient's lab results. Physical Exam Const alert, oriented x3, no apparent distress and well nourished General Appearance: cooperative, comfortable and well developed Orientation / Consciousness: awake, oriented to person, oriented to place and oriented to time HEENT normocephalic and head/scalp atraumatic Head and Scalp: normal to inspection, normocephalic and atraumatic External Ear: external ears normal Throat: other Other Details: A tracheostomy tube is noted to be in place. Eyes PERRL and EOMs intact bilaterally General Eye: normal appearance of both eyes Resp normal respiratory effort, normal air movement, no retractions and no use of accessory muscles Extremity no calf tenderness General Extremity: Negative for clubbing or cyanosis Skin Wound Narrative: A large open wound is noted in the left submandibular area. Dimensions are docu mented elsewhere. There is a large amount of necrotic and nonviable tissue at the base of the wound. There is also a disagreeable odor. A nearby tracheostomy tube is noted in the midline. Swab cultures have been obtained, for both aerobic and anaerobic bacterial growth. Neuro oriented x3, CN's II-XII intact bilaterally and moves all extremities Sensorium / Orientation: awake, alert, oriented to person, oriented to place and oriented to time Psych Appearance: grossly normal and appropriate Attitude: calm Activity / Motor Behavior: appropriate eye contact Speech: normal speech Mood & Affect: euthymic mood Thought Process: normal thought process Thought Content: normal thought content Attention / Concentration: attention grossly intact Debridement Note Debridement Note Wound debrided: Left jaw surgical wound nonhealing Laterality: Left Type of Debridement: Excisional debridement Anesthesia Used: 5% Lidocaine Gel Depth: in the subcutaneous layer and to muscle Percentage of wound debrided: 100 Instrument Used: 5mm curette, #15 blade and Forceps Tissue Removed: Slough and fibrin Severity: Fat Layer Exposed Amount of bleeding with debridement: None Patient tolerated procedure: Patient tolerated procedure well Post-Debridement Measurements and Additional Note: Post-Debridement Measurements/Treatment - Nurse 1 - General Ulcer Assessment Start: 08/01/22 08:30 Freq: Status: Active Protocol: .[place] Activity Type Activity Date Activity User E-sign Co-sign Detail Recorded Client Recorded Date Recorded By Document 08/01/22 08:30 [facility] [id number] 08/01/22 08:36 [facility] 08/01/22 08:30 - Today's Visit Information Type of service Follow-up Visit (Physician/MANAGER OF CASE MANAGEMENT ) Arrival Mode Ambulatory Transfer Assistance None Accompanied by stefanie Patient Identification Verified (Name & Yes ) Patient Requires Transmission-Based No Precautions Height and Weight Body Mass Index (BMI) 22.3 BMI Classification Normal Vital Signs Temperature (97.8 F-99.1 F) 97 F L Temperature Source Temporal Pulse Rate (60-100) 75 Pulse Location Monitor Respiratory Rate (12-18) 18 Respiratory rate source Observation Oxygen Delivery Method Room Air Blood Pressure (90/60-120/80) 110/64 Blood Pressure Mean (mm Hg) 79 Source Monitor Position Sitting Blood Pressure Location Left Arm History Since Last Visit- (Skip if this is Patient's initial visit) Have you changed medications since your No last visit? Any new allergies or adverse reactions No Had a fall/change in ADL's that may No increase risk of falls Signs or symptoms of abuse and/or No neglect since last visit Have you been in the hospital since your No last visit? Has dressing in place as prescribed Yes Has offloadiing in place as prescribed N/A Experienced any changes in pain level or No management Left Footwear Regular Shoe Right Footwear Regular Shoe Pain Scale: 0-10 Numeric Is Patient Pain Free? Yes DHAVAL - Nurse 1 - General Ulcer Measurement Start: 08/01/22 08:30 Freq: Status: Active Protocol: Activity Type Activity Date Activity User E-sign Co-sign Detail Recorded Client Recorded Date Recorded By Document 08/01/22 08:30 [facility] [id number] 08/01/22 08:36 [facility] 08/01/22 08:30 Wound Center Nurse 1 #1 Chin -Combined with other wound No -Current Size (cm) - Length 2.8 -Current Size (cm) - Width 2.8 -Current Size (cm) - Depth 0.7 -Total Square Cm 7.84 -Date of Last Picture (Recall this 08/01/22 field) -Photo Taken Yes -Epithelialization None Present -Tunneling No -Undermining/Tunneling No -Circular Undermining No -Exudate Amt Medium -Exudate Type Yellow/Green -Wound Margin Thickened -Granulation Amt None Present (0 %) -Slough/Fibrin Yes -Necrosis Amt Large (67-100%) -Necrotic Tissue Type Adherent Slough -Texture (Candace-wound Skin Appearance) Assessed, Scarring -Moisture (Candace-wound Skin Appearance) Assessed -Color (Candace-wound Skin Appearance) Assessed -Temperature (Canadce-wound Skin No Abnormality Appearance) (Pt Warm) -Tenderness on Palpation (Candace-wound No Skin Appearance) -Ulcer Cleansing Soap and Water -Foul Odor after Cleansing No -Anesthetic Used 5% Lidocaine Gel DHAVAL - Nurse 2 - General Ulcer CM Notes Start: 08/01/22 08:30 Freq: Status: Active Protocol: Activity Type Activity Date Activity User E-sign Co-sign Detail Recorded Client Recorded Date Recorded By Document 08/01/22 09:18 [id number] 08/01/22 09:24 08/01/22 09:18 Wound Center Nurse 2 -Time :22 -Correct Patient Yes -Correct Side, Site, Position Yes -Correct Procedure Yes -Procedure Performed Yes -Type of Procedure Debridement -Clinical Debridement Subcutaneous -Tissue Removed Subcutaneous -Post Debridement (cm) - Length 2.7 -Post Debridement (cm) - Width 2.7 -Post Debridement (cm) - Depth 0.8 -Total Square (Post) (cm) 7.29 -Area of Debridement (cm) - Length 2.7 -Area of Debridement (cm) - Width 2.7 -Total Square (Area) (cm) 7.29 -Tunneling No -Undermining/Tunneling No -Circular Undermining No -Wound/Ulcer Outcome Not Healed -Ulcer Cleansing Rinsed/ Irrigated with Saline -Foul Odor after Cleansing No -Bioengineered Tissue No -Bleeding Controlled with Pressure -Treatment Response Procedure Tolerated Well -Offloading No -Debridement - Subq, 1st 20sq cm Yes Pain Scale: 0-10 Numeric Is Patient Pain Free? Yes WC - Nurse 3 - General Ulcer D/C NN Start: 08/01/22 08:30 Freq: Status: Active Protocol: Activity Type Activity Date Activity User E-sign Co-sign Detail Recorded Client Recorded Date Recorded By Document 08/01/22 09:33 [facility] [id number] 08/01/22 09:34 [facility] 08/01/22 09:33 Wound Care Nurse 3 #1 Chin -Primary Dressing Applied Aquacel Extra -Other Dressing theraskin -Primary Dressing Covered/Secured with Dry Gauze, Secured with Tape -Aquacel Extra 1 Treatment Response Procedure Tolerated Well Pain Scale: 0-10 Numeric Is Patient Pain Free? Yes WC - Visit Discharge Discharge Condition Stable Ambulatory Status Ambulatory Transportation Private Auto Accompanied by stefanie Assessment/Plan Assessment/Plan (1) Head and neck cancer: CODE(S): C76.0 - Malignant neoplasm of head, face and neck (2) Delayed surgical wound healing: CODE(S): T81.89XA - Other complications of procedures, not elsewhere classified, initial encounter QUALIFIERS: Encounter type: initial encounter Qualified Code(s): T81.89XA - Other complications of procedures, not elsewhere classified, initial encounter PLAN: Therapy skin #[address] may change outer dressing only down to the veil if soiled or smells. Patient is to return in 1 week. 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
[2022-08-08 08:32] VITALS: BP 123/57; TEMP 36.3; BMI 22.3
--- NOTE | 2022-08-08 10:00 | PN.PCM_ITS ---
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 He received courses of chemotherapy followed by radiation treatments, which were concluded by the end of 2017. He recently underwent oral surgery and had 8 teeth extracted. Two extraction sites have failed to heal. On November 07, 2021, the patient underwent reconstruction of the jaw using bone from his left lower leg. He now has a chronic, non-healing surgical wound in the left sub- mandibular area. Progress of Wound: We obtained free TheraSkin graft sites for the chin area. Patient still develops a lot of slough over the skin area but has new skin bumps showing new cellular growth. We have been using Santyl for the last 2 weeks that has debrided a lot of the slough off to the new skin. We applied the third and last TheraSkin to the area last week. This week it looks really good no sign of redness nose odor. We are leaving the TheraSkin on for 1 more week we rinsed it with saline and reapplied veil and Steri-Strips and Aquacel on top. Patient is starting his second antibiotic from the previous cultures that we obtained . Subjective Subjective Daughter and patient are happy with outcomes Objective Data Objective Data The TheraSkin is intact no odor looks good adhering to the skin well rinsed again with normal saline and will follow-up next week Vital Signs: Vital Signs Temp Pulse Resp BP O2 Del Method 97.3 F L 75 18 123/57 H Room Air 08/08/22 08:32 08/01/22 08:30 08/01/22 08:30 08/08/22 08:32 08/01/22 08:30 Oxygen Delivery Method Room Air Weight: 130 lb Body Mass Index (BMI) 22.3 Lab / Micro Data Attestation: I reviewed the patient's lab results. Physical Exam Const alert, oriented x3, no apparent distress and well nourished General Appearance: cooperative, comfortable and well developed Orientation / Consciousness: awake, oriented to person, oriented to place and oriented to time HEENT normocephalic and head/scalp atraumatic Head and Scalp: normal to inspection, normocephalic and atraumatic External Ear: external ears normal Throat: other Other Details: A tracheostomy tube is noted to be in place. Eyes PERRL and EOMs intact bilaterally General Eye: normal appearance of both eyes Resp normal respiratory effort, normal air movement, no retractions and no use of accessory muscles Extremity no calf tenderness General Extremity: Negative for clubbing or cyanosis Skin Wound Narrative: A large open wound is noted in the left submandibular area. Dimensions are documented elsewhere. There is a large amount of necrotic and nonviable tissue at the base of the wound. There is also a disagreeable odor. A nearby tracheostomy tube is noted in the midline. Swab cultures have been obtained, for both aerobic and anaerobic bacterial growth. Neuro oriented x3, CN's II-XII intact bilaterally and moves all extremities Sensorium / Orientation: awake, alert, oriented to person, oriented to place and oriented to time Psych Appearance: grossly normal and appropriate Attitude: calm Activity / Motor Behavior: appropriate eye contact Speech: normal speech Mood & Affect: euthymic mood Thought Process: normal thought process Thought Content: normal thought content Attention / Concentration: attention grossly intact Debridement Note Debridement Note Wound debrided: Left jaw No debridement was completed: No debridement was completed today Post-Debridement Measurements and Additional Note: Post-Debridement Measurements/Treatment - Nurse 1 - General Ulcer Assessment Start: 08/01/22 08:30 Freq: Status: Active Protocol: DHAVAL.ROXANA Activity Type Activity Date Activity User E-sign Co-sign Detail Recorded Client Recorded Date Recorded By Document 08/01/22 08:30 [facility] [id number] 08/01/22 08:36 [facility] Document 08/08/22 08:32 [place] [id number] 08/08/22 08:33 [place] 08/01/22 08/08/22 08:30 08:32 - Today's Visit Information Type of service Follow-up Visit Follow-up Visit (Physician/MICRO PALEONTOLOGIST (Physician/MICRO PALEONTOLOGIST ) ) Arrival Mode Ambulatory Ambulatory Transfer Assistance None Accompanied by stefanie Patient Identification Verified (Name & Yes Yes ) Patient Requires Transmission-Based No No Precautions Height and Weight Body Mass Index (BMI) 22.3 22.3 BMI Classification Normal Normal Vital Signs Temperature (97.8 F-99.1 F) 97 F L 97.3 F L Temperature Source Temporal Temporal Pulse Rate (60-100) 75 Pulse Location Monitor Respiratory Rate (12-18) 18 Respiratory rate source Observation Oxygen Delivery Method Room Air Blood Pressure (90/60-120/80) 110/64 123/57 H Blood Pressure Mean (mm Hg) 79 79 Source Monitor Monitor Position Sitting Blood Pressure Location Left Arm History Since Last Visit- (Skip if this is Patient's initial visit) Have you changed medications since your No No last visit? Any new allergies or adverse reactions No No Had a fall/change in ADL's that may No No increase risk of falls Signs or symptoms of abuse and/or No No neglect since last visit Have you been in the hospital since your No No last visit? Has dressing in place as prescribed Yes Yes Has compression in place as prescribed N/A Has offloadiing in place as prescribed N/A N/A Experienced any changes in pain level or No No management Left Footwear Regular Shoe Regular Shoe Right Footwear Regular Shoe Regular Shoe Pain Scale: 0-10 Numeric Is Patient Pain Free? Yes Yes WC - Nurse 1 - General Ulcer Measurement Start: 08/01/22 08:30 Freq: Status: Active Protocol: Activity Type Activity Date Activity User E-sign Co-sign Detail Recorded Client Recorded Date Recorded By Document 08/01/22 08:30 [facility] [id number] 08/01/22 08:36 [facility] 08/01/22 08:30 Wound Center Nurse 1 #1 Chin -Combined with other wound No -Current Size (cm) - Length 2.8 -Current Size (cm) - Width 2.8 -Current Size (cm) - Depth 0.7 -Total Square Cm 7.84 -Date of Last Picture (Recall this 08/01/22 field) -Photo Taken Yes -Epithelialization None Present -Tunneling No -Undermining/Tunneling No -Circular Undermining No -Exudate Amt Medium -Exudate Type Yellow/Green -Wound Margin Thickened -Granulation Amt None Present (0 %) -Slough/Fibrin Yes -Necrosis Amt Large (67-100%) -Necrotic Tissue Type Adherent Slough -Texture (Candace-wound Skin Appearance) Assessed, Scarring -Moisture (Candace-wound Skin Appearance) Assessed -Color (Candace-wound Skin Appearance) Assessed -Temperature (Candace-wound Skin No Abnormality Appearance) (Pt Warm) -Tenderness on Palpation (Candace-wound No Skin Appearance) -Ulcer Cleansing Soap and Water -Foul Odor after Cleansing No -Anesthetic Used 5% Lidocaine Gel WC - Nurse 2 - General Ulcer CM Notes Start: 08/01/22 08:30 Freq: Status: Active Protocol: Activity Type Activity Date Activity User E-sign Co-sign Detail Recorded Client Recorded Date Recorded By Document 08/01/22 09:18 MW [id number] 08/01/22 09:24 MW Document 08/08/22 08:33 MW [id number] 08/08/22 08:39 MW 08/01/22 08/08/22 09:18 08:33 Wound Center Nurse 2 #1 Chin -Time 09: 08:35 -Correct Patient Yes Yes -Correct Side, Site, Position Yes Yes -Correct Procedure Yes Yes -Procedure Performed Yes No -Type of Procedure Debridement -Clinical Debridement Subcutaneous -Tissue Removed Subcutaneous -Post Debridement (cm) - Length 2.7 -Post Debridement (cm) - Width 2.7 -Post Debridement (cm) - Depth 0.8 -Total Square (Post) (cm) 7.29 -Area of Debridement (cm) - Length 2.7 -Area of Debridement (cm) - Width 2.7 -Total Square (Area) (cm) 7.29 -Tunneling No No -Undermining/Tunneling No No -Circular Undermining No No -Wound/Ulcer Outcome Not Healed Not Healed -Ulcer Cleansing Rinsed/ Rinsed/ Irrigated with Irrigated with Saline Saline -Foul Odor after Cleansing No No -Bioengineered Tissue No No -Bleeding Controlled with Pressure NA -Treatment Response Procedure Procedure Tolerated Well Tolerated Well -Offloading No -Debridement - Subq, 1st 20sq cm Yes Pain Scale: 0-10 Numeric Is Patient Pain Free? Yes Yes - Nurse 3 - General Ulcer D/C NN Start: 08/01/22 08:30 Freq: Status: Active Protocol: Activity Type Activity Date Activity User E-sign Co-sign Detail Recorded Client Recorded Date Recorded By Document 08/01/22 09:33 [facility] [id number] 08/01/22 09:34 [facility] Document 08/08/22 08:43 MW [id number] 08/08/22 08:44 MW 08/01/22 08/08/22 09:33 08:43 Wound Care Nurse 3 #1 Chin -Ulcer Cleansing Not Cleansed -Foul Odor after Cleansing No -Negative Pressure Wound Therapy N/A -Primary Dressing Applied Aquacel Extra Aquacel Extra -Other Dressing theraskin -Primary Dressing Covered/Secured with Dry Gauze, Dry Gauze, Secured with Secured with Tape Tape -Aquacel Extra 1 1 Treatment Response Procedure Procedure Tolerated Well Tolerated Well Pain Scale: 0-10 Numeric Is Patient Pain Free? Yes Yes Teaching: Wound Center Dressing Your Wound -Person Taught Patient -Teaching Method Demonstration -Response to teaching Verbalize understanding WC - Visit Discharge Discharge Condition Stable Stable Ambulatory Status Ambulatory Ambulatory Transportation Private Auto Private Auto Accompanied by stefanie daughter Medication Reconcilliation completed & No provided to patient/care provider Clinical Summary of Care Provided Yes Assessment/Plan Assessment/Plan (1) Head and neck cancer: CODE(S): C76.0 - Malignant neoplasm of head, face and neck (2) Delayed surgical wound healing: CODE(S): T81.89XA - Other complications of procedures, not elsewhere classified, initial encounter QUALIFIERS: Encounter type: initial encounter Qualified Code(s): T81.89XA - Other complications of procedures, not elsewhere classified, initial encounter PLAN: Continue ther- skin #[address] may change outer dressing only down to the veil if soiled or smells. Patient is to return in 1 week. 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
[2022-08-15 08:31] VITALS: BP 131/64; PULSE 83; RESP 16; TEMP 36; BMI 22.3
--- NOTE | 2022-08-15 12:31 | PN.PCM_ITS ---
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 He received courses of chemotherapy followed by radiation treatments, which were concluded by the end of 2017. He recently underwent oral surgery and had 8 teeth extracted. Two extraction sites have failed to heal. On November 07, 2021, the patient underwent reconstruction of the jaw using bone from his left lower leg. He now has a chronic, non-healing surgical wound in the left sub- mandibular area. Progress of Wound: We obtained free TheraSkin graft sites for the chin area. We are removing the last TheraSkin to the jaw area. New skin developed underneath with lots of formation of skin cells. Even the deepest area looks very good. Some slough developed but was able to be wiped out. Patient will start on Ruth moistened with gauze over top. Subjective Subjective Patient is very pleased with results Objective Data Objective Data Abraded the third TheraSkin off the wound base underneath the skin looks very good no odor no redness healing well measuring smaller basically doing well. We will try using Ruth for a while to keep the slough from developing Vital Signs: Vital Signs Temp Pulse Resp BP O2 Del Method 96.8 F L 83 16 131/64 H Room Air 08/15/22 08:31 08/15/22 08:31 08/15/22 08:31 08/15/22 08:31 08/15/22 08:31 Oxygen Delivery Method Room Air Weight: 130 lb Body Mass Index (BMI) 22.3 Physical Exam Const alert, oriented x3, no apparent distress and well nourished General Appearance: cooperative, comfortable and well developed Orientation / Consciousness: awake, oriented to person, oriented to place and oriented to time HEENT normocephalic and head/scalp atraumatic Head and Scalp: normal to inspection, normocephalic and atraumatic External Ear: external ears normal Throat: other Other Details: A tracheostomy tube is noted to be in place. Eyes PERRL and EOMs intact bilaterally General Eye: normal appearance of both eyes Resp normal respiratory effort, normal air movement, no retractions and no use of accessory muscles Extremity no calf tenderness General Extremity: Negative for clubbing or cyanosis Skin Wound Narrative: A large open wound is noted in the left submandibular area. Dimensions are documented elsewhere. There is a large amount of necrotic and nonviable tissue at the base of the wound. There is also a disagreeable odor. A nearby tracheostomy tube is noted in the midline. Swab cultures have been obtained, for both aerobic and anaerobic bacterial growth. Neuro oriented x3, CN's II-XII intact bilaterally and moves all extremities Sensorium / Orientation: awake, alert, oriented to person, oriented to place and oriented to time Psych Appearance: grossly normal and appropriate Attitude: calm Activity / Motor Behavior: appropriate eye contact Speech: normal speech Mood & Affect: euthymic mood Thought Process: normal thought process Thought Content: normal thought content Attention / Concentration: attention grossly intact Debridement Note Debridement Note Wound debrided: Left jaw surgical site nonhealing Type of Debridement: Excisional debridement Anesthesia Used: 5% Lidocaine Gel Depth: Down to and including healthy tissue Percentage of wound debrided: 100 Instrument Used: 7mm curette Tissue Removed: Fibrin some slough Severity: Fat Layer Exposed Amount of bleeding with debridement: Mild Bleeding Controlled with: Compression and gauze Patient tolerated procedure: Patient tolerated procedure well Post-Debridement Measurements and Additional Note: Post-Debridement Measurements/Treatment - Nurse 1 - General Ulcer Assessment Start: 08/01/22 08:30 Freq: Status: Active Protocol: BRANDAN Activity Type Activity Date Activity User E-sign Co-sign Detail Recorded Client Recorded Date Recorded By Document 08/01/22 08:30 [facility] [id number] 08/01/22 08:36 [facility] Document 08/08/22 08:32 [place] [id number] 08/08/22 08:33 [place] Document 08/15/22 08:31 [id number] 08/15/22 08:36 DEVIN 08/01/22 08/08/22 08/15/22 08:30 08:32 08:31 - Today's Visit Information Type of service Follow-up Visit Follow-up Visit Follow-up Visit (Physician/PRODUCTION SCHEDULER (Physician/PRODUCTION SCHEDULER (Physician/PRODUCTION SCHEDULER ) ) ) Arrival Mode Ambulatory Ambulatory Ambulatory Transfer Assistance None None Accompanied by stefanie Patient Identification Verified (Name & Yes Yes Yes ) Patient Requires Transmission-Based No No No Precautions Height and Weight Body Mass Index (BMI) 22.3 22.3 22.3 BMI Classification Normal Normal Normal Vital Signs Temperature (97.8 F-99.1 F) 97 F L 97.3 F L 96.8 F L Temperature Source Temporal Temporal Temporal Pulse Rate (60-100) 75 83 Pulse Location Monitor Monitor Respiratory Rate (12-18) 18 16 Respiratory rate source Observation Observation Oxygen Delivery Method Room Air Room Air Blood Pressure (90/60-120/80) 110/64 123/57 H 131/64 H Blood Pressure Mean (mm Hg) 79 79 86 Source Monitor Monitor Monitor Position Sitting Sitting Blood Pressure Location Left Arm Left Arm History Since Last Visit- (Skip if this is Patient's initial visit) Have you changed medications since your No No No last visit? Any new allergies or adverse reactions No No No Had a fall/change in ADL's that may No No No increase risk of falls Signs or symptoms of abuse and/or No No No neglect since last visit Have you been in the hospital since your No No No last visit? Has dressing in place as prescribed Yes Yes Yes Has compression in place as prescribed N/A N/A Has offloadiing in place as prescribed N/A N/A N/A Experienced any changes in pain level or No No management Left Footwear Regular Shoe Regular Shoe Regular Shoe Right Footwear Regular Shoe Regular Shoe Regular Shoe Pain Scale: 0-10 Numeric Is Patient Pain Free? Yes Yes Yes WC - Nurse 1 - General Ulcer Measurement Start: 08/01/22 08:30 Freq: Status: Active Protocol: Activity Type Activity Date Activity User E-sign Co-sign Detail Recorded Client Recorded Date Recorded By Document 08/01/22 08:30 [facility] [id number] 08/01/22 08:36 [facility] Document 08/15/22 08:31 [id number] 08/15/22 08:36 08/01/22 08/15/22 08:30 08:31 Wound Center Nurse 1 #1 Chin -Combined with other wound No No -Current Size (cm) - Length 2.8 2.7 -Current Size (cm) - Width 2.8 2.6 -Current Size (cm) - Depth 0.7 0.1 -Total Square Cm 7.84 7.02 -Date of Last Picture (Recall this 08/01/22 08/15/22 field) -Photo Taken Yes Yes -Epithelialization None Present None Present -Tunneling No No -Undermining/Tunneling No No -Circular Undermining No No -Exudate Amt Medium Medium -Exudate Type Yellow/Green Serosanguineous -Wound Margin Thickened Distinct, Outline Attached -Granulation Amt None Present (0 None Present (0 %) %) -Slough/Fibrin Yes Yes -Necrosis Amt Large (67-100%) Large (67-100%) -Necrotic Tissue Type Adherent Slough Adherent Slough -Texture (Candace-wound Skin Appearance) Assessed, Assessed, Scarring Scarring -Moisture (Candace-wound Skin Appearance) Assessed Assessed -Color (Candace-wound Skin Appearance) Assessed Assessed -Temperature (Candace-wound Skin No Abnormality No Abnormality Appearance) (Pt Warm) (Pt Warm) -Tenderness on Palpation (Candace-wound No No Skin Appearance) -Ulcer Cleansing Soap and Water Soap and Water -Foul Odor after Cleansing No No -Anesthetic Used 5% Lidocaine 5% Lidocaine Gel Gel WC - Nurse 2 - General Ulcer CM Notes Start: 08/01/22 08:30 Freq: Status: Active Protocol: Activity Type Activity Date Activity User E-sign Co-sign Detail Recorded Client Recorded Date Recorded By Document 08/01/22 09:18 MW [id number] 08/01/22 09:24 MW Document 08/08/22 08:33 MW [id number] 08/08/22 08:39 MW Document 08/15/22 08:46 MW [id number] 08/15/22 08:53 MW 08/01/22 08/08/22 08/15/22 09:18 08:33 08:46 Wound Center Nurse 2 #1 Chin -Time : 08:35 08:46 -Correct Patient Yes Yes Yes -Correct Side, Site, Position Yes Yes Yes -Correct Procedure Yes Yes Yes -Procedure Performed Yes No Yes -Type of Procedure Debridement Incision & Drainage -Clinical Debridement Subcutaneous Subcutaneous -Tissue Removed Subcutaneous Subcutaneous -Post Debridement (cm) - Length 2.7 2.5 -Post Debridement (cm) - Width 2.7 2.4 -Post Debridement (cm) - Depth 0.8 0.8 -Total Square (Post) (cm) 7.29 6.00 -Area of Debridement (cm) - Length 2.7 2.5 -Area of Debridement (cm) - Width 2.7 2.4 -Total Square (Area) (cm) 7.29 6.00 -Tunneling No No No -Undermining/Tunneling No No No -Circular Undermining No No No -Wound/Ulcer Outcome Not Healed Not Healed Not Healed -Ulcer Cleansing Rinsed/ Rinsed/ Rinsed/ Irrigated with Irrigated with Irrigated with Saline Saline Saline -Foul Odor after Cleansing No No No -Bioengineered Tissue No No No -Bleeding Controlled with Pressure NA Pressure -Treatment Response Procedure Procedure Procedure Tolerated Well Tolerated Well Tolerated Well -Offloading No No -Debridement - Subq, 1st 20sq cm Yes Yes -Debridement - Muscle / Fascia, 1st Yes 20sq cm Pain Scale: 0-10 Numeric Is Patient Pain Free? Yes Yes Yes - Nurse 3 - General Ulcer D/C NN Start: 08/01/22 08:30 Freq: Status: Active Protocol: Activity Type Activity Date Activity User E-sign Co-sign Detail Recorded Client Recorded Date Recorded By Document 08/01/22 09:33 [facility] [id number] 08/01/22 09:34 [facility] Document 08/08/22 08:43 [id number] 08/08/22 08:44 Document 08/15/22 09:03 [facility] [id number] 08/15/22 09:04 [facility] 08/01/22 08/08/22 08/15/22 09:33 08:43 09:03 Wound Care Nurse 3 #1 Chin -Ulcer Cleansing Not Cleansed Rinsed/ Irrigated with Saline -Foul Odor after Cleansing No No -Negative Pressure Wound Therapy N/A -Primary Dressing Applied Aquacel Extra Aquacel Extra NonAdherent Contact Layer, Promogran -Other Dressing theraskin -Primary Dressing Covered/Secured with Dry Gauze, Dry Gauze, Secured with Secured with Tape Tape -Aquacel Extra 1 1 -Promogran 1 Treatment Response Procedure Procedure Procedure Tolerated Well Tolerated Well Tolerated Well Pain Scale: 0-10 Numeric Is Patient Pain Free? Yes Yes Yes Teaching: Wound Center Dressing Your Wound -Person Taught Patient -Teaching Method Demonstration -Response to teaching Verbalize understanding WC - Visit Discharge Discharge Condition Stable Stable Stable Ambulatory Status Ambulatory Ambulatory Ambulatory Transportation Private Auto Private Auto Private Auto Accompanied by stefanie daughter Medication Reconcilliation completed & No provided to patient/care provider Clinical Summary of Care Provided Yes Assessment/Plan Assessment/Plan (1) Head and neck cancer: CODE(S): C76.0 - Malignant neoplasm of head, face and neck (2) Delayed surgical wound healing: CODE(S): T81.89XA - Other complications of procedures, not elsewhere classified, initial encounter QUALIFIERS: Encounter type: initial encounter Qualified Code(s): T81.89XA - Other complications of procedures, not elsewhere classified, initial encounter PLAN: Wash area with antibacterial soap and place Ruth and base cover with Adaptic gauze and paper tape daily dressings Follow-up in 1 week Finish antibiotic therapy for last infection (3) Nonhealing surgical wound: CODE(S): T81.89XA - Other complications of procedures, not elsewhere classified, initial encounter QUALIFIERS: Encounter type: initial encounter Qualified Code(s): T81.89XA - Other complications of procedures, not elsewhere classified, initial encounter (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
[2022-08-22 08:29] VITALS: BP 117/58; PULSE 75; RESP 16; TEMP 36.8; BMI 22.3
--- NOTE | 2022-08-22 08:59 | PN.PCM_ITS ---
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 He received courses of chemotherapy followed by radiation treatments, which were concluded by the end of 2017. He recently underwent oral surgery and had 8 teeth extracted. Two extraction sites have failed to heal. On November 07, 2021, the patient underwent reconstruction of the jaw using bone from his left lower leg. He now has a chronic, non-healing surgical wound in the left sub- mandibular area. Progress of Wound: Patient using Ruth at this point. The wound was easily debrided with bleeding tissue showing very good. Tolerated treatment well. He is to be filling in from the bottom up. No sign of infection no odor noted Subjective Subjective Family is still pleased with outcomes no concerns Objective Data Objective Data We will continue using Ruth for another week. Measurements are about the same from last week except in depth is actually getting more shallow. Able to debri de all the area and get good skin underneath noted. Vital Signs: Vital Signs Temp Pulse Resp BP O2 Del Method 98.2 F 75 16 117/58 L Room Air 08/22/22 08:29 08/22/22 08:29 08/22/22 08:29 08/22/22 08:29 08/22/22 08:29 Oxygen Delivery Method Room Air Weight: 130 lb Body Mass Index (BMI) 22.3 Lab / Micro Data Attestation: I reviewed the patient's lab results. Physical Exam Const alert, oriented x3, no apparent distress and well nourished General Appearance: cooperative, comfortable and well developed Orientation / Consciousness: awake, oriented to person, oriented to place and oriented to time HEENT normocephalic and head/scalp atraumatic Head and Scalp: normal to inspection, normocephalic and atraumatic External Ear: external ears normal Throat: other Other Details: A tracheostomy tube is noted to be in place. Eyes PERRL and EOMs intact bilaterally General Eye: normal appearance of both eyes Resp normal respiratory effort, normal air movement, no retractions and no use of accessory muscles Extremity no calf tenderness General Extremity: Negative for clubbing or cyanosis Skin Wound Narrative: A large open wound is noted in the left submandibular area. Dimensions are documented elsewhere. There is a large amount of necrotic and nonviable tissue at the base of the wound. There is also a disagreeable odor. A nearby tracheostomy tube is noted in the midline. Swab cultures have been obtained, for both aerobic and anaerobic bacterial growth. Neuro oriented x3, CN's II-XII intact bilaterally and moves all extremities Sensorium / Orientation: awake, alert, oriented to person, oriented to place and oriented to time Psych Appearance: grossly normal and appropriate Attitude: calm Activity / Motor Behavior: appropriate eye contact Speech: normal speech Mood & Affect: euthymic mood Thought Process: normal thought process Thought Content: normal thought content Attention / Concentration: attention grossly intact Debridement Note Debridement Note Wound debrided: Left jaw postoperative for cancer Laterality: Left Type of Debridement: Excisional debridement Anesthesia Used: 5% Lidocaine Gel Depth: Down to and including healthy tissue Percentage of wound debrided: 100 Instrument Used: 5mm curette Tissue Removed: Slough Severity: Fat Layer Exposed Amount of bleeding with debridement: Mild Bleeding Controlled with: Compression and gauze Patient tolerated procedure: Patient tolerated procedure well Post-Debridement Measurements and Additional Note: Post-Debridement Measurements/Treatment - Nurse 1 - General Ulcer Assessment Start: 08/01/22 08:30 Freq: Status: Active Protocol: [email or web address].[email or web address] Activity Type Activity Date Activity User E-sign Co-sign Detail Recorded Client Recorded Date Recorded By Document 08/01/22 08:30 [facility] [id number] 08/01/22 08:36 [facility] Document 08/08/22 08:32 MA [id number] 08/08/22 08:33 MA Document 08/15/22 08:31 [id number] 08/15/22 08:36 Document 08/22/22 08:29 [facility] [id number] 08/22/22 08:32 [facility] 08/01/22 08/08/22 08/15/22 08:30 08:32 08:31 - Today's Visit Information Type of service Follow-up Visit Follow-up Visit Follow-up Visit (Physician/ADDRESSOGRAPH OPERATOR (Physician/ADDRESSOGRAPH OPERATOR (Physician/ADDRESSOGRAPH OPERATOR ) ) ) Arrival Mode Ambulatory Ambulatory Ambulatory Transfer Assistance None None Accompanied by natalie Patient Identification Verified (Name & Yes Yes Yes ) Patient Requires Transmission-Based No No No Precautions Height and Weight Body Mass Index (BMI) 22.3 22.3 22.3 BMI Classification Normal Normal Normal Vital Signs Temperature (97.8 F-99.1 F) 97 F L 97.3 F L 96.8 F L Temperature Source Temporal Temporal Temporal Pulse Rate (60-100) 75 83 Pulse Location Monitor Monitor Respiratory Rate (12-18) 18 16 Respiratory rate source Observation Observation Oxygen Delivery Method Room Air Room Air Blood Pressure (90/60-120/80) 110/64 123/57 H 131/64 H Blood Pressure Mean (mm Hg) 79 79 86 Source Monitor Monitor Monitor Position Sitting Sitting Blood Pressure Location Left Arm Left Arm History Since Last Visit- (Skip if this is Patient's initial visit) Have you changed medications since your No No No last visit? Any new allergies or adverse reactions No No No Had a fall/change in ADL's that may No No No increase risk of falls Signs or symptoms of abuse and/or No No No neglect since last visit Have you been in the hospital since your No No No last visit? Has dressing in place as prescribed Yes Yes Yes Has compression in place as prescribed N/A N/A Has offloadiing in place as prescribed N/A N/A N/A Experienced any changes in pain level or No No management Left Footwear Regular Shoe Regular Shoe Regular Shoe Right Footwear Regular Shoe Regular Shoe Regular Shoe Pain Scale: 0-10 Numeric Is Patient Pain Free? Yes Yes Yes 08/22/22 08:29 WC - Today's Visit Information Type of service Follow-up Visit (Physician/ADDRESSOGRAPH OPERATOR ) Arrival Mode Ambulatory Transfer Assistance None Accompanied by NATALIE Patient Identification Verified (Name & Yes ) Patient Requires Transmission-Based No Precautions Height and Weight Body Mass Index (BMI) 22.3 BMI Classification Normal Vital Signs Temperature (97.8 F-99.1 F) 98.2 F Temperature Source Temporal Pulse Rate (60-100) 75 Pulse Location Monitor Respiratory Rate (12-18) 16 Respiratory rate source Observation Oxygen Delivery Method Room Air Blood Pressure (90/60-120/80) 117/58 L Blood Pressure Mean (mm Hg) 77 Source Monitor Position Sitting Blood Pressure Location Left Arm History Since Last Visit- (Skip if this is Patient's initial visit) Have you changed medications since your No last visit? Any new allergies or adverse reactions No Had a fall/change in ADL's that may No increase risk of falls Signs or symptoms of abuse and/or No neglect since last visit Have you been in the hospital since your No last visit? Has dressing in place as prescribed Yes Has compression in place as prescribed N/A Has offloadiing in place as prescribed N/A Experienced any changes in pain level or No management Left Footwear Regular Shoe Right Footwear Regular Shoe Pain Scale: 0-10 Numeric Is Patient Pain Free? Yes WC - Nurse 1 - General Ulcer Measurement Start: 08/01/22 08:30 Freq: Status: Active Protocol: Activity Type Activity Date Activity User E-sign Co-sign Detail Recorded Client Recorded Date Recorded By Document 08/01/22 08:30 [facility] [id number] 08/01/22 08:36 BM Document 08/15/22 08:31 [id number] 08/15/22 08:36 Document 08/22/22 08:29 [facility] [id number] 08/22/22 08:32 [facility] 08/01/22 08/15/22 08/22/22 08:30 08:31 08:29 Wound Center Nurse 1 #1 Chin -Combined with other wound No No No -Current Size (cm) - Length 2.8 2.7 2.5 -Current Size (cm) - Width 2.8 2.6 0.7 -Current Size (cm) - Depth 0.7 0.1 0.2 -Total Square Cm 7.84 7.02 1.75 -Date of Last Picture (Recall this 08/01/22 08/15/22 08/22/22 field) -Photo Taken Yes Yes Yes -Epithelialization None Present None Present None Present -Tunneling No No No -Undermining/Tunneling No No No -Circular Undermining No No No -Exudate Amt Medium Medium Medium -Exudate Type Yellow/Green Serosanguineous Serosanguineous -Wound Margin Thickened Distinct, Distinct, Outline Outline Attached Attached -Granulation Amt None Present (0 None Present (0 Small (1-33%) %) %) -Granulation Quality Red -Slough/Fibrin Yes Yes Yes -Necrosis Amt Large (67-100%) Large (67-100%) Large (67-100%) -Necrotic Tissue Type Adherent Slough Adherent Slough Adherent Slough -Texture (Candace-wound Skin Appearance) Assessed, Assessed, Assessed, Scarring Scarring Scarring -Moisture (Candace-wound Skin Appearance) Assessed Assessed Assessed -Color (Candace-wound Skin Appearance) Assessed Assessed Assessed -Temperature (Candace-wound Skin No Abnormality No Abnormality No Abnormality Appearance) (Pt Warm) (Pt Warm) (Pt Warm) -Tenderness on Palpation (Candace-wound No No No Skin Appearance) -Ulcer Cleansing Soap and Water Soap and Water Soap and Water -Foul Odor after Cleansing No No No -Anesthetic Used 5% Lidocaine 5% Lidocaine 5% Lidocaine Gel Gel Gel WC - Nurse 2 - General Ulcer CM Notes Start: 08/01/22 08:30 Freq: Status: Active Protocol: Activity Type Activity Date Activity User E-sign Co-sign Detail Recorded Client Recorded Date Recorded By Document 08/01/22 09:18 MW [id number] 08/01/22 09:24 MW Document 08/08/22 08:33 MW [id number] 08/08/22 08:39 MW Document 08/15/22 08:46 MW [id number] 08/15/22 08:53 MW Edit Result 08/15/22 08:46 MW (1) [id number] 08/17/22 06:57 PL Document 08/22/22 08:40 MW [id number] 08/22/22 08:42 MW (1) #1 Chin - Debridement - Muscle / Fascia, 1st Yes => 20sq cm 08/01/22 08/08/22 08/15/22 09:18 08:33 08:46 Wound Center Nurse 2 #1 Chin -Time 08:35 08:46 -Correct Patient Yes Yes Yes -Correct Side, Site, Position Yes Yes Yes -Correct Procedure Yes Yes Yes -Procedure Performed Yes No Yes -Type of Procedure Debridement Incision & Drainage -Clinical Debridement Subcutaneous Subcutaneous -Tissue Removed Subcutaneous Subcutaneous -Post Debridement (cm) - Length 2.7 2.5 -Post Debridement (cm) - Width 2.7 2.4 -Post Debridement (cm) - Depth 0.8 0.8 -Total Square (Post) (cm) 7.29 6.00 -Area of Debridement (cm) - Length 2.7 2.5 -Area of Debridement (cm) - Width 2.7 2.4 -Total Square (Area) (cm) 7.29 6.00 -Tunneling No No No -Undermining/Tunneling No No No -Circular Undermining No No No -Wound/Ulcer Outcome Not Healed Not Healed Not Healed -Ulcer Cleansing Rinsed/ Rinsed/ Rinsed/ Irrigated with Irrigated with Irrigated with Saline Saline Saline -Foul Odor after Cleansing No No No -Bioengineered Tissue No No No -Bleeding Controlled with Pressure NA Pressure -Treatment Response Procedure Procedure Procedure Tolerated Well Tolerated Well Tolerated Well -Offloading No No -Debridement - Subq, 1st 20sq cm Yes Yes Pain Scale: 0-10 Numeric Is Patient Pain Free? Yes Yes Yes 08/22/22 08:40 Wound Center Nurse 2 #1 Chin -Time 08:40 -Correct Patient Yes -Correct Side, Site, Position Yes -Correct Procedure Yes -Procedure Performed Yes -Type of Procedure Debridement -Clinical Debridement Subcutaneous -Tissue Removed Subcutaneous -Post Debridement (cm) - Length 2.7 -Post Debridement (cm) - Width 2.5 -Post Debridement (cm) - Depth 0.7 -Total Square (Post) (cm) 6.75 -Area of Debridement (cm) - Length 2.7 -Area of Debridement (cm) - Width 2.5 -Total Square (Area) (cm) 6.75 -Tunneling No -Undermining/Tunneling No -Circular Undermining No -Wound/Ulcer Outcome Not Healed -Ulcer Cleansing Rinsed/ Irrigated with Saline -Foul Odor after Cleansing No -Bioengineered Tissue No -Bleeding Controlled with Pressure -Treatment Response Procedure Tolerated Well -Offloading No -Debridement - Subq, 1st 20sq cm Yes Pain Scale: 0-10 Numeric Is Patient Pain Free? Yes - Nurse 3 - General Ulcer D/C NN Start: 08/01/22 08:30 Freq: Status: Active Protocol: Activity Type Activity Date Activity User E-sign Co-sign Detail Recorded Client Recorded Date Recorded By Document 08/01/22 09:33 [facility] [id number] 08/01/22 09:34 BM Document 08/08/22 08:43 MW [id number] 08/08/22 08:44 MW Document 08/15/22 09:03 [facility] [id number] 08/15/22 09:04 BM Document 08/22/22 08:42 MW [id number] 08/22/22 08:43 MW 08/01/22 08/08/22 08/15/22 09:33 08:43 09:03 Wound Care Nurse 3 #1 Chin -Ulcer Cleansing Not Cleansed Rinsed/ Irrigated with Saline -Foul Odor after Cleansing No No -Negative Pressure Wound Therapy N/A -Primary Dressing Applied Aquacel Extra Aquacel Extra NonAdherent Contact Layer, Promogran -Other Dressing theraskin -Primary Dressing Covered/Secured with Dry Gauze, Dry Gauze, Secured with Secured with Tape Tape -Aquacel Extra 1 1 -Promogran 1 -Promogran Ruth Matter Treatment Response Procedure Procedure Procedure Tolerated Well Tolerated Well Tolerated Well Pain Scale: 0-10 Numeric Is Patient Pain Free? Yes Yes Yes Teaching: Wound Center Dressing Your Wound -Person Taught Patient -Teaching Method Demonstration -Response to teaching Verbalize understanding WC - Visit Discharge Discharge Condition Stable Stable Stable Ambulatory Status Ambulatory Ambulatory Ambulatory Transportation Private Auto Private Auto Private Auto Accompanied by natalie daughter Medication Reconcilliation completed & No provided to patient/care provider Clinical Summary of Care Provided Yes 08/22/22 08:42 Wound Care Nurse 3 #1 Chin -Ulcer Cleansing Rinsed/ Irrigated with Saline -Foul Odor after Cleansing No -Negative Pressure Wound Therapy N/A -Primary Dressing Applied Promogran Ruth Matter -Other Dressing -Primary Dressing Covered/Secured with Dry Gauze, Secured with Tape -Aquacel Extra -Promogran -Promogran Ruth Matter 1 Treatment Response Procedure Tolerated Well Pain Scale: 0-10 Numeric Is Patient Pain Free? Yes Teaching: Wound Center Dressing Your Wound -Person Taught Patient,Family -Teaching Method Discussion, Demonstration -Response to teaching Verbalize understanding WC - Visit Discharge Discharge Condition Stable Ambulatory Status Ambulatory Transportation Private Auto Accompanied by daughter Medication Reconcilliation completed & No provided to patient/care provider Clinical Summary of Care Provided Yes Assessment/Plan Assessment/Plan (1) Head and neck cancer: CODE(S): C76.0 - Malignant neoplasm of head, face and neck (2) Delayed surgical wound healing: CODE(S): T81.89XA - Other complications of procedures, not elsewhere classified, initial encounter QUALIFIERS: Encounter type: initial encounter Qualified Code(s): T81.89XA - Other complications of procedures, not elsewhere classified, initial encounter PLAN: Wash area with antibacterial soap and place Ruth and base cover with Adaptic gauze and paper tape daily dressings Follow-up in 1 week (3) Nonhealing surgical wound: CODE(S): T81.89XA - Other complications of procedures, not elsewhere classified, initial encounter QUALIFIERS: Encounter type: initial encounter Qualified Code(s): T81.89XA - Other complications of procedures, not elsewhere classified, initial encounter (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
== END 2022-08-22 23:59 | disposition home or self-care (01) ==
LOC: WC 08:30
PROVIDERS: PCP Nurse Practitioner; Referring Provider Nurse Practitioner; Visit Provider Nurse Practitioner
DX: T81.89XA Other complications of procedures, not elsewhere classified, initial encounter (principal); Z93.0 Tracheostomy status; Y84.2 Radiological procedure and radiotherapy as the cause of abnormal reaction of the patient, or of later complication, without mention of misadventure at the time of the procedure; L59.8 Other specified disorders of the skin and subcutaneous tissue related to radiation; Z79.890 Hormone replacement therapy; Z79.899 Other long term (current) drug therapy; Z92.3 Personal history of irradiation; Z85.89 Personal history of malignant neoplasm of other organs and systems
CPT/HCPCS: 11042; 11043; 99213; G0463

== ENCOUNTER 2022-09-19 08:15 | Outpatient (RCR) | payer OTHER, SELFPAY ==
[2022-01-31 09:09] VITALS: BMI 22.6
[2022-08-23 00:14] VITALS: BP 117/58; PULSE 75; RESP 16; TEMP 36.8; BMI 22.3
[2022-08-29 08:18] VITALS: BP 110/54; PULSE 92; RESP 16; TEMP 37.1; BMI 22.3
--- NOTE | 2022-08-29 10:52 | PCM.WC.PN ---
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 He received courses of chemotherapy followed by radiation treatments, which were concluded by the end of 2017. He recently underwent oral surgery and had 8 teeth extracted. Two extraction sites have failed to heal. On November 07, 2021, the patient underwent reconstruction of the jaw using bone from his left lower leg. 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 Progress of Wound: Again today the measurements are smaller. Slough wipes out clean weekly. The area that was had deepest area is filling in nicely. We will continue using Ruth Subjective Subjective Taking pictures along the way and big difference from the original picture looking improved family is happy Objective Data Objective Data As stated above clean no odor still gets slough covering easily removed using the Ruth. Healing nicely measurements are smaller follow-up in 1 week Vital Signs: Vital Signs Temp Pulse Resp BP O2 Del Method 98.8 F 92 16 110/54 L Room Air 08/29/22 08:18 08/29/22 08:18 08/29/22 08:18 08/29/22 08:18 08/29/22 08:18 Oxygen Delivery Method Room Air Weight: 130 lb Body Mass Index (BMI) 22.3 Lab / Micro Data Attestation: I reviewed the patient's lab results. Physical Exam Const alert, oriented x3, no apparent distress and well nourished General Appearance: cooperative, comfortable and well developed Orientation / Consciousness: awake, oriented to person, oriented to place and oriented to time HEENT normocephalic and head/scalp atraumatic Head and Scalp: normal to inspection, normocephalic and atraumatic External Ear: external ears normal Throat: other Other Details: A tracheostomy tube is noted to be in place. Eyes PERRL and EOMs intact bilaterally General Eye: normal appearance of both eyes Resp normal respiratory effort, normal air movement, no retractions and no use of accessory muscles Extremity no calf tenderness General Extremity: Negative for clubbing or cyanosis Skin Wound Narrative: A large open wound is noted in the left submandibular area. Dimensions are documented elsewhere. There is a large amount of necrotic and nonviable tissue at the base of the wound. There is also a disagreeable odor. A nearby tracheostomy tube is noted in the midline. Swab cultures have been obtained, for both aerobic and anaerobic bacterial growth. Neuro oriented x3, CN's II-XII intact bilaterally and moves all extremities Sensorium / Orientation: awake, alert, oriented to person, oriented to place and oriented to time Psych Appearance: grossly normal and appropriate Attitude: calm Activity / Motor Behavior: appropriate eye contact Speech: normal speech Mood & Affect: euthymic mood Thought Process: normal thought process Thought Content: normal thought content Attention / Concentration: attention grossly intact Debridement Note Debridement Note Wound debrided: Left jaw surgical site Type of Debridement: Excisional debridement Anesthesia Used: 5% Lidocaine Gel Depth: Down to and including healthy tissue and in the subcutaneous layer Percentage of wound debrided: 100 Instrument Used: 5mm curette Tissue Removed: Slough and fibrin Severity: Fat Layer Exposed Amount of bleeding with debridement: Mild Patient tolerated procedure: Patient tolerated procedure well Post-Debridement Measurements and Additional Note: Post-Debridement Measurements/Treatment - Nurse 1 - General Ulcer Assessment Start: 08/29/22 08:17 Freq: Status: Active Protocol: BRANDAN Activity Type Activity Date Activity User E-sign Co-sign Detail Recorded Client Recorded Date Recorded By Document 08/29/22 08:18 [facility] [id number] 08/29/22 08:19 [facility] 08/29/22 08:18 - Today's Visit Information Type of service Follow-up Visit (Physician/MOSHGIACH ) Arrival Mode Ambulatory Transfer Assistance None Accompanied by stefanie Patient Identification Verified (Name & Yes ) Patient Requires Transmission-Based No Precautions Height and Weight Body Mass Index (BMI) 22.3 BMI Classification Normal Vital Signs Temperature (97.8 F-99.1 F) 98.8 F Temperature Source Temporal Pulse Rate (60-100) 92 Pulse Location Monitor Respiratory Rate (12-18) 16 Respiratory rate source Observation Oxygen Delivery Method Room Air Blood Pressure (90/60-120/80) 110/54 L Blood Pressure Mean (mm Hg) 72 Source Monitor Position Sitting Blood Pressure Location Left Arm History Since Last Visit- (Skip if this is Patient's initial visit) Have you changed medications since your No last visit? Any new allergies or adverse reactions No Had a fall/change in ADL's that may No increase risk of falls Signs or symptoms of abuse and/or No neglect since last visit Have you been in the hospital since your No last visit? Has dressing in place as prescribed Yes Has compression in place as prescribed N/A Has offloadiing in place as prescribed N/A Experienced any changes in pain level or No management Left Footwear Regular Shoe Right Footwear Regular Shoe Pain Scale: 0-10 Numeric Is Patient Pain Free? Yes - Nurse 1 - General Ulcer Measurement Start: 08/29/22 08:17 Freq: Status: Active Protocol: Activity Type Activity Date Activity User E-sign Co-sign Detail Recorded Client Recorded Date Recorded By Document 08/29/22 08:18 [facility] [id number] 08/29/22 08:19 [facility] 08/29/22 08:18 Wound Center Nurse 1 #1 Chin -Combined with other wound No -Current Size (cm) - Length 2.4 -Current Size (cm) - Width 3 -Current Size (cm) - Depth 0.3 -Total Square Cm 7.2 -Date of Last Picture (Recall this 08/29/22 field) -Photo Taken Yes -Epithelialization None Present -Tunneling No -Undermining/Tunneling No -Circular Undermining No -Exudate Amt Medium -Exudate Type Serosanguineous -Wound Margin Distinct, Outline Attached -Granulation Amt None Present (0 %) -Slough/Fibrin Yes -Necrosis Amt Large (67-100%) -Necrotic Tissue Type Adherent Slough -Texture (Candace-wound Skin Appearance) Assessed, Scarring -Moisture (Candace-wound Skin Appearance) Assessed -Color (Candace-wound Skin Appearance) Assessed, Erythema -Temperature (Candace-wound Skin No Abnormality Appearance) (Pt Warm) -Tenderness on Palpation (Candace-wound No Skin Appearance) -Ulcer Cleansing Rinsed/ Irrigated with Saline -Foul Odor after Cleansing No -Anesthetic Used 5% Lidocaine Gel WC - Nurse 2 - General Ulcer CM Notes Start: 08/29/22 08:17 Freq: Status: Active Protocol: Activity Type Activity Date Activity User E-sign Co-sign Detail Recorded Client Recorded Date Recorded By Document 08/29/22 08:23 MW [id number] 08/29/22 08:27 MW 08/29/22 08:23 Wound Center Nurse 2 -Time 08:24 -Correct Patient Yes -Correct Side, Site, Position Yes -Correct Procedure Yes -Procedure Performed Yes -Type of Procedure Debridement -Clinical Debridement Subcutaneous -Tissue Removed Subcutaneous -Post Debridement (cm) - Length 2.4 -Post Debridement (cm) - Width 2.7 -Post Debridement (cm) - Depth 0.7 -Total Square (Post) (cm) 6.48 -Area of Debridement (cm) - Length 2.4 -Area of Debridement (cm) - Width 2.7 -Total Square (Area) (cm) 6.48 -Tunneling No -Undermining/Tunneling No -Circular Undermining No -Wound/Ulcer Outcome Not Healed -Ulcer Cleansing Rinsed/ Irrigated with Saline -Foul Odor after Cleansing No -Bioengineered Tissue No -Debridement - Subq, 1st 20sq cm Yes Pain Scale: 0-10 Numeric Is Patient Pain Free? Yes - Nurse 3 - General Ulcer D/C NN Start: 08/29/22 08:17 Freq: Status: Active Protocol: Activity Type Activity Date Activity User E-sign Co-sign Detail Recorded Client Recorded Date Recorded By Document 08/29/22 08:35 [facility] [id number] 08/29/22 08:35 [facility] 08/29/22 08:35 Wound Care Nurse 3 #1 Chin -Ulcer Cleansing Rinsed/ Irrigated with Saline -Foul Odor after Cleansing No -Primary Dressing Applied NonAdherent Contact Layer, Promogran Ruth Matter -Other Dressing drsg per ak metal stud framer -Primary Dressing Covered/Secured with Dry Gauze, Secured with Tape -Promogran Ruth Matter 1 Treatment Response Procedure Tolerated Well Pain Scale: 0-10 Numeric Is Patient Pain Free? Yes - Visit Discharge Discharge Condition Stable Ambulatory Status Ambulatory Transportation Private Auto Accompanied by daughter Assessment/Plan Assessment/Plan (1) Head and neck cancer: CODE(S): C76.0 - Malignant neoplasm of head, face and neck (2) Delayed surgical wound healing: CODE(S): T81.89XA - Other complications of procedures, not elsewhere classified, initial encounter QUALIFIERS: Encounter type: initial encounter Qualified Code(s): T81.89XA - Other complications of procedures, not elsewhere classified, initial encounter PLAN: Wash area with antibacterial soap and place Ruth and base cover with Adaptic gauze and paper tape daily dressings Follow-up in 1 week (3) Nonhealing surgical wound: CODE(S): T81.89XA - Other complications of procedures, not elsewhere classified, initial encounter QUALIFIERS: Encounter type: initial encounter Qualified Code(s): T81.89XA - Other complications of procedures, not elsewhere classified, initial encounter (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
[2022-09-05 08:18] VITALS: BP 105/49; PULSE 74; RESP 16; TEMP 36; BMI 22.3
--- NOTE | 2022-09-05 11:08 | PCM.WC.PN ---
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 He received courses of chemotherapy followed by radiation treatments, which were concluded by the end of 2017. He recently underwent oral surgery and had 8 teeth extracted. Two extraction sites have failed to heal. On November 07, 2021, the patient underwent reconstruction of the jaw using bone from his left lower leg. 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 Progress of Wound: Again today the measurements are smaller. Slough wipes out clean weekly. The area that was had deepest area is filling in nicely. We will try using Promogran this week. Subjective Subjective Family continues to be pleased with progress Objective Data Objective Data No sign of infection no odor noted still gets buildup of product on top that has to be scraped off. Tolerates everything really well bleeds easily deeper and is filling in we will try using Promogran now from [facility]. Vital Signs: Vital Signs Temp Pulse Resp BP O2 Del Method 96.8 F L 74 16 105/49 L Room Air 09/05/22 08:18 09/05/22 08:18 09/05/22 08:18 09/05/22 08:18 09/05/22 08:18 Oxygen Delivery Method Room Air Weight: 130 lb Body Mass Index (BMI) 22.3 Physical Exam Const alert, oriented x3, no apparent distress and well nourished General Appearance: cooperative, comfortable and well developed Orientation / Consciousness: awake, oriented to person, oriented to place and oriented to time HEENT normocephalic and head/scalp atraumatic Head and Scalp: normal to inspection, normocephalic and atraumatic External Ear: external ears normal Throat: other Other Details: A tracheostomy tube is noted to be in place. Eyes PERRL and EOMs intact bilaterally General Eye: normal appearance of both eyes Resp normal respiratory effort, normal air movement, no retractions and no use of accessory muscles Extremity no calf tenderness General Extremity: Negative for clubbing or cyanosis Skin Wound Narrative: A large open wound is noted in the left submandibular area. Dimensions are documented elsewhere. There is a large amount of necrotic and nonviable tissue at the base of the wound. There is also a disagreeable odor. A nearby tracheostomy tube is noted in the midline. Swab cultures have been obtained, for both aerobic and anaerobic bacterial growth. Neuro oriented x3, CN's II-XII intact bilaterally and moves all extremities Sensorium / Orientation: awake, alert, oriented to person, oriented to place and oriented to time Psych Appearance: grossly normal and appropriate Attitude: calm Activity / Motor Behavior: appropriate eye contact Speech: normal speech Mood & Affect: euthymic mood Thought Process: normal thought process Thought Content: normal thought content Attention / Concentration: attention grossly intact Debridement Note Debridement Note Wound debrided: Left jaw surgical wound nonhealing Type of Debridement: Excisional debridement Anesthesia Used: 5% Lidocaine Gel Depth: Down to and including healthy tissue and in the subcutaneous layer Percentage of wound debrided: 100 Instrument Used: 7mm curette Tissue Removed: Slough fibrin Severity: Fat Layer Exposed Amount of bleeding with debridement: Mild Bleeding Controlled with: Compression and gauze Patient tolerated procedure: Patient tolerated procedure well Post-Debridement Measurements and Additional Note: Post-Debridement Measurements/Treatment - Nurse 1 - General Ulcer Assessment Start: 08/29/22 08:17 Freq: Status: Active Protocol: [email or web address].ROXANA Activity Type Activity Date Activity User E-sign Co-sign Detail Recorded Client Recorded Date Recorded By Document 08/29/22 08:18 [facility] [id number] 08/29/22 08:19 [facility] Document 09/05/22 08:18 [facility] [id number] 09/05/22 08:20 [facility] 08/29/22 09/05/22 08:18 08:18 - Today's Visit Information Type of service Follow-up Visit Follow-up Visit (Physician/HOUSEHOLD APPLIANCE ASSEMBLER (Physician/HOUSEHOLD APPLIANCE ASSEMBLER ) ) Arrival Mode Ambulatory Ambulatory Transfer Assistance None None Accompanied by stefanie stefanie Patient Identification Verified (Name & Yes Yes ) Patient Requires Transmission-Based No No Precautions Height and Weight Body Mass Index (BMI) 22.3 22.3 BMI Classification Normal Normal Vital Signs Temperature (97.8 F-99.1 F) 98.8 F 96.8 F L Temperature Source Temporal Temporal Pulse Rate (60-100) 92 74 Pulse Location Monitor Monitor Respiratory Rate (12-18) 16 16 Respiratory rate source Observation Observation Oxygen Delivery Method Room Air Room Air Blood Pressure (90/60-120/80) 110/54 L 105/49 L Blood Pressure Mean (mm Hg) 72 67 Source Monitor Monitor Position Sitting Sitting Blood Pressure Location Left Arm Left Arm History Since Last Visit- (Skip if this is Patient's initial visit) Have you changed medications since your No No last visit? Any new allergies or adverse reactions No No Had a fall/change in ADL's that may No No increase risk of falls Signs or symptoms of abuse and/or No No neglect since last visit Have you been in the hospital since your No No last visit? Has dressing in place as prescribed Yes Yes Has compression in place as prescribed N/A N/A Has offloadiing in place as prescribed N/A N/A Experienced any changes in pain level or No No management Left Footwear Regular Shoe Regular Shoe Right Footwear Regular Shoe Regular Shoe Pain Scale: 0-10 Numeric Is Patient Pain Free? Yes Yes WC - Nurse 1 - General Ulcer Measurement Start: 08/29/22 08:17 Freq: Status: Active Protocol: Activity Type Activity Date Activity User E-sign Co-sign Detail Recorded Client Recorded Date Recorded By Document 08/29/22 08:18 [facility] [id number] 08/29/22 08:19 [facility] Document 09/05/22 08:18 [facility] [id number] 09/05/22 08:20 BM 08/29/22 09/05/22 08:18 08:18 Wound Center Nurse 1 #1 Chin -Combined with other wound No No -Current Size (cm) - Length 2.4 2 -Current Size (cm) - Width 3 2.4 -Current Size (cm) - Depth 0.3 0.2 -Total Square Cm 7.2 4.8 -Date of Last Picture (Recall this 08/29/22 09/05/22 field) -Photo Taken Yes Yes -Epithelialization None Present None Present -Tunneling No No -Undermining/Tunneling No No -Circular Undermining No No -Exudate Amt Medium Medium -Exudate Type Serosanguineous Serosanguineous -Wound Margin Distinct, Distinct, Outline Outline Attached Attached -Granulation Amt None Present (0 None Present (0 %) %) -Slough/Fibrin Yes -Necrosis Amt Large (67-100%) Large (67-100%) -Necrotic Tissue Type Adherent Slough Adherent Slough -Texture (Candace-wound Skin Appearance) Assessed, Assessed, Scarring Scarring -Moisture (Candace-wound Skin Appearance) Assessed Assessed -Color (Candace-wound Skin Appearance) Assessed, Assessed, Erythema Erythema -Temperature (Candace-wound Skin No Abnormality No Abnormality Appearance) (Pt Warm) (Pt Warm) -Tenderness on Palpation (Candace-wound No No Skin Appearance) -Ulcer Cleansing Rinsed/ Soap and Water Irrigated with Saline -Foul Odor after Cleansing No No -Anesthetic Used 5% Lidocaine 5% Lidocaine Gel Gel - Nurse 2 - General Ulcer CM Notes Start: 08/29/22 08:17 Freq: Status: Active Protocol: Activity Type Activity Date Activity User E-sign Co-sign Detail Recorded Client Recorded Date Recorded By Document 08/29/22 08:23 MW [id number] 08/29/22 08:27 MW Document 09/05/22 08:33 MW [id number] 09/05/22 08:37 MW 08/29/22 09/05/22 08:23 08:33 Wound Center Nurse 2 #1 Chin -Time 08:24 08:34 -Correct Patient Yes Yes -Correct Side, Site, Position Yes Yes -Correct Procedure Yes Yes -Procedure Performed Yes Yes -Type of Procedure Debridement Debridement -Clinical Debridement Subcutaneous Subcutaneous -Tissue Removed Subcutaneous Subcutaneous -Post Debridement (cm) - Length 2.4 2.5 -Post Debridement (cm) - Width 2.7 2.5 -Post Debridement (cm) - Depth 0.7 0.5 -Total Square (Post) (cm) 6.48 6.25 -Area of Debridement (cm) - Length 2.4 2.5 -Area of Debridement (cm) - Width 2.7 2.5 -Total Square (Area) (cm) 6.48 6.25 -Tunneling No No -Undermining/Tunneling No No -Circular Undermining No No -Wound/Ulcer Outcome Not Healed Not Healed -Ulcer Cleansing Rinsed/ Rinsed/ Irrigated with Irrigated with Saline Saline -Foul Odor after Cleansing No No -Bioengineered Tissue No No -Bleeding Controlled with Pressure -Treatment Response Procedure Tolerated Well -Offloading No -Debridement - Subq, 1st 20sq cm Yes Yes Pain Scale: 0-10 Numeric Is Patient Pain Free? Yes Yes - Nurse 3 - General Ulcer D/C NN Start: 08/29/22 08:17 Freq: Status: Active Protocol: Activity Type Activity Date Activity User E-sign Co-sign Detail Recorded Client Recorded Date Recorded By Document 08/29/22 08:35 [facility] [id number] 08/29/22 08:35 [facility] Document 09/05/22 08:43 [facility] [id number] 09/05/22 08:44 [facility] 08/29/22 09/05/22 08:35 08:43 Wound Care Nurse 3 #1 Chin -Ulcer Cleansing Rinsed/ Rinsed/ Irrigated with Irrigated with Saline Saline -Foul Odor after Cleansing No No -Primary Dressing Applied NonAdherent NonAdherent Contact Layer, Contact Layer, Promogran Promogran Ruth Matter -Other Dressing drsg per ak slotter operator -Primary Dressing Covered/Secured with Dry Gauze, Dry Gauze, Secured with Secured with Tape Tape -Promogran 1 -Promogran Ruth Matter 1 Treatment Response Procedure Procedure Tolerated Well Tolerated Well Pain Scale: 0-10 Numeric Is Patient Pain Free? Yes Yes WC - Visit Discharge Discharge Condition Stable Stable Ambulatory Status Ambulatory Ambulatory Transportation Private Auto Private Auto Accompanied by daughter stefanie Assessment/Plan Assessment/Plan (1) Head and neck cancer: CODE(S): C76.0 - Malignant neoplasm of head, face and neck (2) Delayed surgical wound healing: CODE(S): T81.89XA - Other complications of procedures, not elsewhere classified, initial encounter QUALIFIERS: Encounter type: initial encounter Qualified Code(s): T81.89XA - Other complications of procedures, not elsewhere classified, initial encounter PLAN: Wash area with antibacterial soap and place Promogran and base cover with Adaptic gauze and paper tape daily dressings Follow-up in 1 week (3) Nonhealing surgical wound: CODE(S): T81.89XA - Other complications of procedures, not elsewhere classified, initial encounter QUALIFIERS: Encounter type: initial encounter Qualified Code(s): T81.89XA - Other complications of procedures, not elsewhere classified, initial encounter (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
[2022-09-12 08:25] VITALS: BP 106/57; PULSE 70; RESP 16; TEMP 35.9; BMI 22.3
--- NOTE | 2022-09-12 08:57 | PCM.WC.PN ---
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 He received courses of chemotherapy followed by radiation treatments, which were concluded by the end of 2017. He recently underwent oral surgery and had 8 teeth extracted. Two extraction sites have failed to heal. On November 07, 2021, the patient underwent reconstruction of the jaw using bone from his left lower leg. 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 Progress of Wound: Today the measurements are the same. Slough wipes out clean weekly. The area that was had deepest area is filling in nicely. We will try using Promogran this week. Subjective Subjective Patient and daughter are still happy with outcomes Objective Data Objective Data Thick layer of slough still appears over the top. Bleeds easily and appears to be filling in nicely Vital Signs: Vital Signs Temp Pulse Resp BP O2 Del Method 96.7 F L 70 16 106/57 L Room Air 09/12/22 08:25 09/12/22 08:25 09/12/22 08:25 09/12/22 08:25 09/12/22 08:25 Oxygen Delivery Method Room Air Weight: 130 lb Body Mass Index (BMI) 22.3 Lab / Micro Data Attestation: I reviewed the patient's lab results. Physical Exam Const alert, oriented x3, no apparent distress and well nourished General Appearance: cooperative, comfortable and well developed Orientation / Consciousness: awake, oriented to person, oriented to place and oriented to time HEENT normocephalic and head/scalp atraumatic Head and Scalp: normal to inspection, normocephalic and atraumatic External Ear: external ears normal Throat: other Other Details: A tracheostomy tube is noted to be in place. Eyes PERRL and EOMs intact bilaterally General Eye: normal appearance of both eyes Resp normal respiratory effort, normal air movement, no retractions and no use of accessory muscles Extremity no calf tenderness General Extremity: Negative for clubbing or cyanosis Skin Wound Narrative: A large open wound is noted in the left submandibular area. Dimensions are documented elsewhere. There is a large amount of necrotic and nonviable tissue at the base of the wound. There is also a disagreeable odor. A nearby tracheostomy tube is noted in the midline. Swab cultures have been obtained, for both aerobic and anaerobic bacterial growth. Neuro oriented x3, CN's II-XII intact bilaterally and moves all extremities Sensorium / Orientation: awake, alert, oriented to person, oriented to place and oriented to time Psych Appearance: grossly normal and appropriate Attitude: calm Activity / Motor Behavior: appropriate eye contact Speech: normal speech Mood & Affect: euthymic mood Thought Process: normal thought process Thought Content: normal thought content Attention / Concentration: attention grossly intact Debridement Note Debridement Note Wound debrided: Left jaw postoperative open wound Type of Debridement: Excisional debridement Anesthesia Used: 5% Lidocaine Gel Depth: Down to and including healthy tissue and in the subcutaneous layer Percentage of wound debrided: 100 Instrument Used: 7mm curette Tissue Removed: Slough and fibrin Severity: Fat Layer Exposed Amount of bleeding with debridement: Mild Bleeding Controlled with: Compression and gauze Patient tolerated procedure: Patient tolerated procedure well Post-Debridement Measurements and Additional Note: Post-Debridement Measurements/Treatment - Nurse 1 - General Ulcer Assessment Start: 08/29/22 08:17 Freq: Status: Active Protocol: BRANDAN Activity Type Activity Date Activity User E-sign Co-sign Detail Recorded Client Recorded Date Recorded By Document 08/29/22 08:18 [facility] [id number] 08/29/22 08:19 [facility] Document 09/05/22 08:18 [facility] [id number] 09/05/22 08:20 [facility] Document 09/12/22 08:25 [place] [id number] 09/12/22 08:27 [place] 08/29/22 09/05/22 09/12/22 08:18 08:18 08:25 - Today's Visit Information Type of service Follow-up Visit Follow-up Visit Follow-up Visit (Physician/THERAPEUTIC RIDING INSTRUCTOR (Physician/THERAPEUTIC RIDING INSTRUCTOR (Physician/THERAPEUTIC RIDING INSTRUCTOR ) ) ) Arrival Mode Ambulatory Ambulatory Ambulatory Transfer Assistance None None None Accompanied by stefanie stefanie stefanie Patient Identification Verified (Name & Yes Yes Yes ) Patient Requires Transmission-Based No No No Precautions Height and Weight Body Mass Index (BMI) 22.3 22.3 22.3 BMI Classification Normal Normal Normal Vital Signs Temperature (97.8 F-99.1 F) 98.8 F 96.8 F L 96.7 F L Temperature Source Temporal Temporal Temporal Pulse Rate (60-100) 92 74 70 Pulse Location Monitor Monitor Monitor Respiratory Rate (12-18) 16 16 16 Respiratory rate source Observation Observation Observation Oxygen Delivery Method Room Air Room Air Room Air Blood Pressure (90/60-120/80) 110/54 L 105/49 L 106/57 L Blood Pressure Mean (mm Hg) 72 67 73 Source Monitor Monitor Monitor Position Sitting Sitting Sitting Blood Pressure Location Left Arm Left Arm History Since Last Visit- (Skip if this is Patient's initial visit) Have you changed medications since your No No No last visit? Any new allergies or adverse reactions No No No Had a fall/change in ADL's that may No No No increase risk of falls Signs or symptoms of abuse and/or No No No neglect since last visit Have you been in the hospital since your No No No last visit? Has dressing in place as prescribed Yes Yes Yes Has compression in place as prescribed N/A N/A N/A Has offloadiing in place as prescribed N/A N/A N/A Experienced any changes in pain level or No No No management Left Footwear Regular Shoe Regular Shoe Regular Shoe Right Footwear Regular Shoe Regular Shoe Regular Shoe Pain Scale: 0-10 Numeric Is Patient Pain Free? Yes Yes Yes WC - Nurse 1 - General Ulcer Measurement Start: 08/29/22 08:17 Freq: Status: Active Protocol: Activity Type Activity Date Activity User E-sign Co-sign Detail Recorded Client Recorded Date Recorded By Document 08/29/22 08:18 [facility] [id number] 08/29/22 08:19 [facility] Document 09/05/22 08:18 [facility] [id number] 09/05/22 08:20 [facility] Document 09/12/22 08:25 [place] [id number] 09/12/22 08:27 [place] 08/29/22 09/05/22 09/12/22 08:18 08:18 08:25 Wound Center Nurse 1 #1 Chin -Combined with other wound No No No -Current Size (cm) - Length 2.4 2 2 -Current Size (cm) - Width 3 2.4 2.5 -Current Size (cm) - Depth 0.3 0.2 0.2 -Total Square Cm 7.2 4.8 5.0 -Date of Last Picture (Recall this 08/29/22 09/05/22 09/12/22 field) -Photo Taken Yes Yes Yes -Epithelialization None Present None Present None Present -Tunneling No No No -Undermining/Tunneling No No No -Circular Undermining No No No -Exudate Amt Medium Medium Medium -Exudate Type Serosanguineous Serosanguineous Serosanguineous -Wound Margin Distinct, Distinct, Distinct, Outline Outline Outline Attached Attached Attached -Granulation Amt None Present (0 None Present (0 None Present (0 %) %) %) -Slough/Fibrin Yes Yes -Necrosis Amt Large (67-100%) Large (67-100%) Large (67-100%) -Necrotic Tissue Type Adherent Slough Adherent Slough Adherent Slough -Texture (Candace-wound Skin Appearance) Assessed, Assessed, Assessed, Scarring Scarring Scarring -Moisture (Candace-wound Skin Appearance) Assessed Assessed Assessed -Color (Candace-wound Skin Appearance) Assessed, Assessed, Assessed Erythema Erythema -Temperature (Candace-wound Skin No Abnormality No Abnormality No Abnormality Appearance) (Pt Warm) (Pt Warm) (Pt Warm) -Tenderness on Palpation (Candace-wound No No No Skin Appearance) -Ulcer Cleansing Rinsed/ Soap and Water Soap and Water Irrigated with Saline -Foul Odor after Cleansing No No No -Anesthetic Used 5% Lidocaine 5% Lidocaine 5% Lidocaine Gel Gel Gel WC - Nurse 2 - General Ulcer CM Notes Start: 08/29/22 08:17 Freq: Status: Active Protocol: Activity Type Activity Date Activity User E-sign Co-sign Detail Recorded Client Recorded Date Recorded By Document 08/29/22 08:23 MW [id number] 08/29/22 08:27 MW Document 09/05/22 08:33 MW [id number] 09/05/22 08:37 MW Document 09/12/22 08:38 MW [id number] 09/12/22 08:40 MW 08/29/22 09/05/22 09/12/22 08:23 08:33 08:38 Wound Center Nurse 2 #1 Chin -Time 08:24 08:34 08:38 -Correct Patient Yes Yes Yes -Correct Side, Site, Position Yes Yes Yes -Correct Procedure Yes Yes Yes -Procedure Performed Yes Yes Yes -Type of Procedure Debridement Debridement Debridement -Clinical Debridement Subcutaneous Subcutaneous Subcutaneous -Tissue Removed Subcutaneous Subcutaneous Subcutaneous -Post Debridement (cm) - Length 2.4 2.5 2.7 -Post Debridement (cm) - Width 2.7 2.5 2.7 -Post Debridement (cm) - Depth 0.7 0.5 0.5 -Total Square (Post) (cm) 6.48 6.25 7.29 -Area of Debridement (cm) - Length 2.4 2.5 2.7 -Area of Debridement (cm) - Width 2.7 2.5 2.7 -Total Square (Area) (cm) 6.48 6.25 7.29 -Tunneling No No No -Undermining/Tunneling No No No -Circular Undermining No No No -Wound/Ulcer Outcome Not Healed Not Healed Not Healed -Ulcer Cleansing Rinsed/ Rinsed/ Rinsed/ Irrigated with Irrigated with Irrigated with Saline Saline Saline -Foul Odor after Cleansing No No No -Bioengineered Tissue No No No -Bleeding Controlled with Pressure Pressure -Treatment Response Procedure Procedure Tolerated Well Tolerated Well -Offloading No No -Debridement - Subq, 1st 20sq cm Yes Yes Yes Pain Scale: 0-10 Numeric Is Patient Pain Free? Yes Yes Yes WC - Nurse 3 - General Ulcer D/C NN Start: 08/29/22 08:17 Freq: Status: Active Protocol: Activity Type Activity Date Activity User E-sign Co-sign Detail Recorded Client Recorded Date Recorded By Document 08/29/22 08:35 [facility] [id number] 08/29/22 08:35 [facility] Document 09/05/22 08:43 [facility] [id number] 09/05/22 08:44 [facility] Document 09/12/22 08:47 [facility] Desktop 09/12/22 08:47 [facility] 08/29/22 09/05/22 09/12/22 08:35 08:43 08:47 Wound Care Nurse 3 #1 Chin -Ulcer Cleansing Rinsed/ Rinsed/ Rinsed/ Irrigated with Irrigated with Irrigated with Saline Saline Saline -Foul Odor after Cleansing No No No -Primary Dressing Applied NonAdherent NonAdherent NonAdherent Contact Layer, Contact Layer, Contact Layer, Promogran Promogran Promogran Ruth Matter -Other Dressing drsg per ak browning processor -Primary Dressing Covered/Secured with Dry Gauze, Dry Gauze, Dry Gauze, Secured with Secured with Secured with Tape Tape Tape -Promogran 1 1 -Promogran Ruth Matter 1 Treatment Response Procedure Procedure Procedure Tolerated Well Tolerated Well Tolerated Well Pain Scale: 0-10 Numeric Is Patient Pain Free? Yes Yes Yes WC - Visit Discharge Discharge Condition Stable Stable Stable Ambulatory Status Ambulatory Ambulatory Ambulatory Transportation Private Auto Private Auto Private Auto Accompanied by daughter stefanie stefanie Assessment/Plan Assessment/Plan (1) Head and neck cancer: CODE(S): C76.0 - Malignant neoplasm of head, face and neck (2) Delayed surgical wound healing: CODE(S): T81.89XA - Other complications of procedures, not elsewhere classified, initial encounter QUALIFIERS: Encounter type: initial encounter Qualified Code(s): T81.89XA - Other complications of procedures, not elsewhere classified, initial encounter PLAN: Wash area with antibacterial soap and place Promogran and base cover with Adaptic gauze and paper tape daily dressings Follow-up in 1 week (3) Nonhealing surgical wound: CODE(S): T81.89XA - Other complications of procedures, not elsewhere classified, initial encounter QUALIFIERS: Encounter type: initial encounter Qualified Code(s): T81.89XA - Other complications of procedures, not elsewhere classified, initial encounter (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
[2022-09-19 08:29] VITALS: BP 116/63; PULSE 69; TEMP 36.2; BMI 22.3
--- NOTE | 2022-09-19 11:34 | PCM.WC.PN ---
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 He received courses of chemotherapy followed by radiation treatments, which were concluded by the end of 2017. He recently underwent oral surgery and had 8 teeth extracted. Two extraction sites have failed to heal. On November 07, 2021, the patient underwent reconstruction of the jaw using bone from his left lower leg. 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 Progress of Wound: Today the measurements are the same. Slough wipes out clean weekly. The area that was had deepest area is filling in nicely. We will continue using Promogran this week. Subjective Subjective Family pleased with outcomes Objective Data Objective Data It is moving slowly but filling in nicely he is starting develop mounds of new tissue Vital Signs: Vital Signs Temp Pulse Resp BP O2 Del Method 97.2 F L 69 16 116/63 Room Air 09/19/22 08:29 09/19/22 08:29 09/12/22 08:25 09/19/22 08:29 09/12/22 08:25 Oxygen Delivery Method Room Air Weight: 130 lb Body Mass Index (BMI) 22.3 Lab / Micro Data Attestation: I reviewed the patient's lab results. Physical Exam Const alert, oriented x3, no apparent distress and well nourished General Appearance: cooperative, comfortable and well developed Orientation / Consciousness: awake, oriented to person, oriented to place and oriented to time HEENT normocephalic and head/scalp atraumatic Head and Scalp: normal to inspection, normocephalic and atraumatic External Ear: external ears normal Throat: other Other Details: A tracheostomy tube is noted to be in place. Eyes PERRL and EOMs intact bilaterally General Eye: normal appearance of both eyes Resp normal respiratory effort, normal air movement, no retractions and no use of accessory muscles Extremity no calf tenderness General Extremity: Negative for clubbing or cyanosis Skin Wound Narrative: A large open wound is noted in the left submandibular area. Dimensions are documented elsewhere. There is a large amount of necrotic and nonviable tissue at the base of the wound. There is also a disagreeable odor. A nearby tracheostomy tube is noted in the midline. Swab cultures have been obtained, for both aerobic and anaerobic bacterial growth. Neuro oriented x3, CN's II-XII intact bilaterally and moves all extremities Sensorium / Orientation: awake, alert, oriented to person, oriented to place and oriented to time Psych Appearance: grossly normal and appropriate Attitude: calm Activity / Motor Behavior: appropriate eye contact Speech: normal speech Mood & Affect: euthymic mood Thought Process: normal thought process Thought Content: normal thought content Attention / Concentration: attention grossly intact Debridement Note Debridement Note Wound debrided: Left jaw Type of Debridement: Excisional debridement Anesthesia Used: 5% Lidocaine Gel Depth: Down to and including healthy tissue and in the subcutaneous layer Instrument Used: 7mm curette Tissue Removed: Slough Severity: Limited To Skin Breakdown Amount of bleeding with debridement: Mild Bleeding Controlled with: Compression and gauze Patient tolerated procedure: Patient tolerated procedure well Post-Debridement Measurements and Additional Note: Post-Debridement Measurements/Treatment - Nurse 1 - General Ulcer Assessment Start: 08/29/22 08:17 Freq: Status: Active Protocol: BRANDAN Activity Type Activity Date Activity User E-sign Co-sign Detail Recorded Client Recorded Date Recorded By Document 08/29/22 08:18 [facility] [id number] 08/29/22 08:19 [facility] Document 09/05/22 08:18 [facility] [id number] 09/05/22 08:20 [facility] Document 09/12/22 08:25 [place] [id number] 09/12/22 08:27 MI Document 09/19/22 08:29 MI [id number] 09/19/22 08:31 MI 08/29/22 09/05/22 09/12/22 08:18 08:18 08:25 - Today's Visit Information Type of service Follow-up Visit Follow-up Visit Follow-up Visit (Physician/MAGAZINE GRINDER LOADER (Physician/MAGAZINE GRINDER LOADER (Physician/MAGAZINE GRINDER LOADER ) ) ) Arrival Mode Ambulatory Ambulatory Ambulatory Transfer Assistance None None None Accompanied by stefanie stefanie stefanie Patient Identification Verified (Name & Yes Yes Yes ) Patient Requires Transmission-Based No No No Precautions Safety Precautions Height and Weight Body Mass Index (BMI) 22.3 22.3 22.3 BMI Classification Normal Normal Normal Vital Signs Temperature (97.8 F-99.1 F) 98.8 F 96.8 F L 96.7 F L Temperature Source Temporal Temporal Temporal Pulse Rate (60-100) 92 74 70 Pulse Location Monitor Monitor Monitor Respiratory Rate (12-18) 16 16 16 Respiratory rate source Observation Observation Observation Oxygen Delivery Method Room Air Room Air Room Air Blood Pressure (90/60-120/80) 110/54 L 105/49 L 106/57 L Blood Pressure Mean (mm Hg) 72 67 73 Source Monitor Monitor Monitor Position Sitting Sitting Sitting Blood Pressure Location Left Arm Left Arm History Since Last Visit- (Skip if this is Patient's initial visit) Have you changed medications since your No No No last visit? Any new allergies or adverse reactions No No No Had a fall/change in ADL's that may No No No increase risk of falls Signs or symptoms of abuse and/or No No No neglect since last visit Have you been in the hospital since your No No No last visit? Has dressing in place as prescribed Yes Yes Yes Has compression in place as prescribed N/A N/A N/A Has offloadiing in place as prescribed N/A N/A N/A Experienced any changes in pain level or No No No management Left Footwear Regular Shoe Regular Shoe Regular Shoe Right Footwear Regular Shoe Regular Shoe Regular Shoe Pain Scale: 0-10 Numeric Is Patient Pain Free? Yes Yes Yes 09/19/22 08:29 WC - Today's Visit Information Type of service Follow-up Visit (Physician/MAGAZINE GRINDER LOADER ) Arrival Mode Ambulatory Transfer Assistance Accompanied by Patient Identification Verified (Name & Yes ) Patient Requires Transmission-Based No Precautions Safety Precautions NA Height and Weight Body Mass Index (BMI) 22.3 BMI Classification Normal Vital Signs Temperature (97.8 F-99.1 F) 97.2 F L Temperature Source Temporal Pulse Rate (60-100) 69 Pulse Location Monitor Respiratory Rate (12-18) Respiratory rate source Oxygen Delivery Method Blood Pressure (90/60-120/80) 116/63 Blood Pressure Mean (mm Hg) 80 Source Monitor Position Blood Pressure Location History Since Last Visit- (Skip if this is Patient's initial visit) Have you changed medications since your No last visit? Any new allergies or adverse reactions No Had a fall/change in ADL's that may No increase risk of falls Signs or symptoms of abuse and/or No neglect since last visit Have you been in the hospital since your No last visit? Has dressing in place as prescribed Yes Has compression in place as prescribed N/A Has offloadiing in place as prescribed N/A Experienced any changes in pain level or No management Left Footwear Regular Shoe Right Footwear Regular Shoe Pain Scale: 0-10 Numeric Is Patient Pain Free? Yes WC - Nurse 1 - General Ulcer Measurement Start: 08/29/22 08:17 Freq: Status: Active Protocol: Activity Type Activity Date Activity User E-sign Co-sign Detail Recorded Client Recorded Date Recorded By Document 08/29/22 08:18 [facility] [id number] 08/29/22 08:19 [facility] Document 09/05/22 08:18 BMF [id number] 09/05/22 08:20 [facility] Document 09/12/22 08:25 AK [id number] 09/12/22 08:27 AK Document 09/19/22 08:29 AK [id number] 09/19/22 08:31 AK 08/29/22 09/05/22 09/12/22 08:18 08:18 08:25 Wound Center Nurse 1 #1 Chin -Combined with other wound No No No -Current Size (cm) - Length 2.4 2 2 -Current Size (cm) - Width 3 2.4 2.5 -Current Size (cm) - Depth 0.3 0.2 0.2 -Total Square Cm 7.2 4.8 5.0 -Date of Last Picture (Recall this 08/29/22 09/05/22 09/12/22 field) -Photo Taken Yes Yes Yes -Epithelialization None Present None Present None Present -Tunneling No No No -Undermining/Tunneling No No No -Circular Undermining No No No -Change in Wound Grade/Stage -Exudate Amt Medium Medium Medium -Exudate Type Serosanguineous Serosanguineous Serosanguineous -Wound Margin Distinct, Distinct, Distinct, Outline Outline Outline Attached Attached Attached -Granulation Amt None Present (0 None Present (0 None Present (0 %) %) %) -Granulation Quality -Slough/Fibrin Yes Yes -Necrosis Amt Large (67-100%) Large (67-100%) Large (67-100%) -Necrotic Tissue Type Adherent Slough Adherent Slough Adherent Slough -Structure Exposed -Texture (Candace-wound Skin Appearance) Assessed, Assessed, Assessed, Scarring Scarring Scarring -Moisture (Candace-wound Skin Appearance) Assessed Assessed Assessed -Color (Candace-wound Skin Appearance) Assessed, Assessed, Assessed Erythema Erythema -Temperature (Candace-wound Skin No Abnormality No Abnormality No Abnormality Appearance) (Pt Warm) (Pt Warm) (Pt Warm) -Tenderness on Palpation (Candace-wound No No No Skin Appearance) -Ulcer Cleansing Rinsed/ Soap and Water Soap and Water Irrigated with Saline -Foul Odor after Cleansing No No No -Anesthetic Used 5% Lidocaine 5% Lidocaine 5% Lidocaine Gel Gel Gel 09/19/22 08:29 Wound Center Nurse 1 #1 Chin -Combined with other wound No -Current Size (cm) - Length 2 -Current Size (cm) - Width 2.7 -Current Size (cm) - Depth 0.2 -Total Square Cm 5.4 -Date of Last Picture (Recall this field) -Photo Taken No -Epithelialization -Tunneling No -Undermining/Tunneling No -Circular Undermining No -Change in Wound Grade/Stage No -Exudate Amt Large -Exudate Type Yellow/Green -Wound Margin Distinct, Outline Attached -Granulation Amt None Present (0 %) -Granulation Quality N/A -Slough/Fibrin No -Necrosis Amt None Present (0 %) -Necrotic Tissue Type -Structure Exposed N/A -Texture (Candace-wound Skin Appearance) No Abnormality, Assessed -Moisture (Candace-wound Skin Appearance) No Abnormality, Assessed -Color (Candace-wound Skin Appearance) No Abnormality, Assessed -Temperature (Candace-wound Skin No Abnormality Appearance) (Pt Warm) -Tenderness on Palpation (Candace-wound No Skin Appearance) -Ulcer Cleansing Soap and Water -Foul Odor after Cleansing No -Anesthetic Used 4% Lidocaine Solution WC - Nurse 2 - General Ulcer CM Notes Start: 08/29/22 08:17 Freq: Status: Active Protocol: Activity Type Activity Date Activity User E-sign Co-sign Detail Recorded Client Recorded Date Recorded By Document 08/29/22 08:23 MW [id number] 08/29/22 08:27 MW Document 09/05/22 08:33 MW [id number] 09/05/22 08:37 MW Document 09/12/22 08:38 MW [id number] 09/12/22 08:40 MW Document 09/19/22 08:35 MW [id number] 09/19/22 08:39 MW 08/29/22 09/05/22 09/12/22 08:23 08:33 08:38 Wound Center Nurse 2 #1 Chin -Time 08:24 08:34 08:38 -Correct Patient Yes Yes Yes -Correct Side, Site, Position Yes Yes Yes -Correct Procedure Yes Yes Yes -Procedure Performed Yes Yes Yes -Type of Procedure Debridement Debridement Debridement -Clinical Debridement Subcutaneous Subcutaneous Subcutaneous -Tissue Removed Subcutaneous Subcutaneous Subcutaneous -Post Debridement (cm) - Length 2.4 2.5 2.7 -Post Debridement (cm) - Width 2.7 2.5 2.7 -Post Debridement (cm) - Depth 0.7 0.5 0.5 -Total Square (Post) (cm) 6.48 6.25 7.29 -Area of Debridement (cm) - Length 2.4 2.5 2.7 -Area of Debridement (cm) - Width 2.7 2.5 2.7 -Total Square (Area) (cm) 6.48 6.25 7.29 -Tunneling No No No -Undermining/Tunneling No No No -Circular Undermining No No No -Wound/Ulcer Outcome Not Healed Not Healed Not Healed -Ulcer Cleansing Rinsed/ Rinsed/ Rinsed/ Irrigated with Irrigated with Irrigated with Saline Saline Saline -Foul Odor after Cleansing No No No -Bioengineered Tissue No No No -Bleeding Controlled with Pressure Pressure -Treatment Response Procedure Procedure Tolerated Well Tolerated Well -Offloading No No -Debridement - Subq, 1st 20sq cm Yes Yes Yes Pain Scale: 0-10 Numeric Is Patient Pain Free? Yes Yes Yes 09/19/22 08:35 Wound Center Nurse 2 #1 Chin -Time 08:35 -Correct Patient Yes -Correct Side, Site, Position Yes -Correct Procedure Yes -Procedure Performed Yes -Type of Procedure Debridement -Clinical Debridement Subcutaneous -Tissue Removed Subcutaneous -Post Debridement (cm) - Length 2.4 -Post Debridement (cm) - Width 2.7 -Post Debridement (cm) - Depth 0.5 -Total Square (Post) (cm) 6.48 -Area of Debridement (cm) - Length 2.4 -Area of Debridement (cm) - Width 2.7 -Total Square (Area) (cm) 6.48 -Tunneling No -Undermining/Tunneling No -Circular Undermining No -Wound/Ulcer Outcome Not Healed -Ulcer Cleansing Rinsed/ Irrigated with Saline -Foul Odor after Cleansing No -Bioengineered Tissue No -Bleeding Controlled with Pressure -Treatment Response Procedure Tolerated Well -Offloading No -Debridement - Subq, 1st 20sq cm Yes Pain Scale: 0-10 Numeric Is Patient Pain Free? Yes - Nurse 3 - General Ulcer D/C NN Start: 08/29/22 08:17 Freq: Status: Active Protocol: Activity Type Activity Date Activity User E-sign Co-sign Detail Recorded Client Recorded Date Recorded By Document 08/29/22 08:35 [facility] [id number] 08/29/22 08:35 [facility] Document 09/05/22 08:43 BM [id number] 09/05/22 08:44 [facility] Document 09/12/22 08:47 BM Desktop 09/12/22 08:47 [facility] Document 09/19/22 08:[address] [id number] 09/19/22 08:50 PL 08/29/22 09/05/22 09/12/22 08:35 08:43 08:47 Wound Care Nurse 3 #1 Chin -Ulcer Cleansing Rinsed/ Rinsed/ Rinsed/ Irrigated with Irrigated with Irrigated with Saline Saline Saline -Foul Odor after Cleansing No No No -Primary Dressing Applied NonAdherent NonAdherent NonAdherent Contact Layer, Contact Layer, Contact Layer, Promogran Promogran Promogran Ruth Matter -Other Dressing drsg per [place] quality control inspector heading -Primary Dressing Covered/Secured with Dry Gauze, Dry Gauze, Dry Gauze, Secured with Secured with Secured with Tape Tape Tape -Promogran 1 1 -Promogran Ruth Matter 1 Treatment Response Procedure Procedure Procedure Tolerated Well Tolerated Well Tolerated Well Pain Scale: 0-10 Numeric Is Patient Pain Free? Yes Yes Yes - Visit Discharge Discharge Condition Stable Stable Stable Ambulatory Status Ambulatory Ambulatory Ambulatory Transportation Private Auto Private Auto Private Auto Accompanied by daughter stefanie watts 09/19/22 08:49 Wound Care Nurse 3 #1 Chin -Ulcer Cleansing Rinsed/ Irrigated with Saline -Foul Odor after Cleansing No -Primary Dressing Applied Promogran -Other Dressing Adaptic -Primary Dressing Covered/Secured with Dry Gauze, Secured with Tape -Promogran 1 -Promogran Ruth Matter Treatment Response Pain Scale: 0-10 Numeric Is Patient Pain Free? Yes WC - Visit Discharge Discharge Condition Stable Ambulatory Status Ambulatory Transportation Accompanied by Assessment/Plan Assessment/Plan (1) Head and neck cancer: CODE(S): C76.0 - Malignant neoplasm of head, face and neck (2) Delayed surgical wound healing: CODE(S): T81.89XA - Other complications of procedures, not elsewhere classified, initial encounter QUALIFIERS: Encounter type: initial encounter Qualified Code(s): T81.89XA - Other complications of procedures, not elsewhere classified, initial encounter PLAN: Wash area with antibacterial soap and place Promogran and base cover with Adaptic gauze and paper tape daily dressings Follow-up in 2 week (3) Nonhealing surgical wound: CODE(S): T81.89XA - Other complications of procedures, not elsewhere classified, initial encounter QUALIFIERS: Encounter type: initial encounter Qualified Code(s): T81.89XA - Other complications of procedures, not elsewhere classified, initial encounter (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
== END 2022-09-22 23:59 | disposition home or self-care (01) ==
LOC: WC 08:15
PROVIDERS: PCP Nurse Practitioner; Referring Provider Nurse Practitioner; Visit Provider Nurse Practitioner
DX: T81.89XA Other complications of procedures, not elsewhere classified, initial encounter (principal); Z93.0 Tracheostomy status; C76.0 Malignant neoplasm of head, face and neck; L59.8 Other specified disorders of the skin and subcutaneous tissue related to radiation; Y84.2 Radiological procedure and radiotherapy as the cause of abnormal reaction of the patient, or of later complication, without mention of misadventure at the time of the procedure; Z79.890 Hormone replacement therapy; Z79.899 Other long term (current) drug therapy; Z92.3 Personal history of irradiation; Z85.89 Personal history of malignant neoplasm of other organs and systems
CPT/HCPCS: 11042

== ENCOUNTER 2022-10-10 08:15 | Outpatient (RCR) | payer OTHER, SELFPAY ==
[2022-01-31 09:09] VITALS: BMI 22.6
[2022-09-23 00:13] VITALS: BP 116/63; PULSE 69; RESP 16; TEMP 36.2; BMI 22.3
[2022-10-03 08:22] VITALS: BP 122/56; PULSE 76; RESP 16; TEMP 36.6; BMI 22.3
--- NOTE | 2022-10-03 10:32 | PN.PCM_ITS ---
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 He received courses of chemotherapy followed by radiation treatments, which were concluded by the end of 2017. He recently underwent oral surgery and had 8 teeth extracted. Two extraction sites have failed to heal. On November 07, 2021, the patient underwent reconstruction of the jaw using bone from his left lower leg. He now has a chronic, non-healing surgical wound in the left sub- mandibular area. Progress of Wound: The wound size is about the same but the interior is less slough cleaned up really well with debridement with a #5 curette. Bleeding easier. We will culture to make sure that were not missing anything otherwise we will continue with the Promogran it seems to be working to close about. Subjective Subjective Family still happy with outcomes Objective Data Objective Data Measurements are about the same but the debridement was very bloody today which is very good news tissue seen. We will continue with the Promogran and repeat cultures just to make sure on the right track. Vital Signs: Vital Signs Temp Pulse Resp BP O2 Del Method 98 F 76 16 122/56 H Room Air 10/03/22 08:22 10/03/22 08:22 10/03/22 08:22 10/03/22 08:22 10/03/22 08:22 Oxygen Delivery Method Room Air Weight: 130 lb Body Mass Index (BMI) 22.3 Lab / Micro Data Attestation: I reviewed the patient's lab results. Physical Exam Const alert, oriented x3, no apparent distress and well nourished General Appearance: cooperative, comfortable and well developed Orientation / Consciousness: awake, oriented to person, oriented to place and oriented to time HEENT normocephalic and head/scalp atraumatic Head and Scalp: normal to inspection, normocephalic and atraumatic External Ear: external ears normal Throat: other Other Details: A tracheostomy tube is noted to be in place. Eyes PERRL and EOMs intact bilaterally General Eye: normal appearance of both eyes Resp normal respiratory effort, normal air movement, no retractions and no use of accessory muscles Extremity no calf tenderness General Extremity: Negative for clubbing or cyanosis Skin Wound Narrative: A large open wound is noted in the left submandibular area. Dimensions are documented elsewhere. There is a large amount of necrotic and nonviable tissue at the base of the wound. There is also a disagreeable odor. A nearby tracheostomy tube is noted in the midline. Swab cultures have been obtained, for both aerobic and anaerobic bacterial growth. Neuro oriented x3, CN's II-XII intact bilaterally and moves all extremities Sensorium / Orientation: awake, alert, oriented to person, oriented to place and oriented to time Psych Appearance: grossly normal and appropriate Attitude: calm Activity / Motor Behavior: appropriate eye contact Speech: normal speech Mood & Affect: euthymic mood Thought Process: normal thought process Thought Content: normal thought content Attention / Concentration: attention grossly intact Debridement Note Debridement Note Wound debrided: Left jaw surgical site for cancer Laterality: Left Type of Debridement: Excisional debridement Anesthesia Used: 5% Lidocaine Gel Depth: Down to and including healthy tissue Percentage of wound debrided: 100 Instrument Used: 5mm curette Tissue Removed: Fibrin slough Severity: Fat Layer Exposed Amount of bleeding with debridement: Mild Bleeding Controlled with: Compression and gauze Patient tolerated procedure: Patient tolerated procedure well Post-Debridement Measurements and Additional Note: Post-Debridement Measurements/Treatment - Nurse 1 - General Ulcer Assessment Start: 10/03/22 08:22 Freq: Status: Active Protocol: BRANDAN Activity Type Activity Date Activity User E-sign Co-sign Detail Recorded Client Recorded Date Recorded By Document 10/03/22 08:22 [facility] [id number] 10/03/22 08:25 [facility] 10/03/22 08:22 - Today's Visit Information Type of service Follow-up Visit (Physician/PYROMETER TEMPERATURE REGULATOR ) Arrival Mode Ambulatory Transfer Assistance None Accompanied by stefanie Patient Identification Verified (Name & Yes ) Patient Requires Transmission-Based No Precautions Height and Weight Body Mass Index (BMI) 22.3 BMI Classification Normal Vital Signs Temperature (97.8 F-99.1 F) 98 F Temperature Source Temporal Pulse Rate (60-100) 76 Pulse Location Monitor Respiratory Rate (12-18) 16 Respiratory rate source Observation Oxygen Delivery Method Room Air Blood Pressure (90/60-120/80) 122/56 H Blood Pressure Mean (mm Hg) 78 Source Monitor Position Sitting Blood Pressure Location Left Arm History Since Last Visit- (Skip if this is Patient's initial visit) Have you changed medications since your No last visit? Any new allergies or adverse reactions No Had a fall/change in ADL's that may No increase risk of falls Signs or symptoms of abuse and/or No neglect since last visit Have you been in the hospital since your No last visit? Has dressing in place as prescribed Yes Has compression in place as prescribed N/A Has offloadiing in place as prescribed N/A Experienced any changes in pain level or No management Left Footwear Regular Shoe Right Footwear Regular Shoe Pain Scale: 0-10 Numeric Is Patient Pain Free? Yes DHAVAL - Nurse 1 - General Ulcer Measurement Start: 10/03/22 08:22 Freq: Status: Active Protocol: Activity Type Activity Date Activity User E-sign Co-sign Detail Recorded Client Recorded Date Recorded By Document 10/03/22 08:22 [facility] [id number] 10/03/22 08:25 BM 10/03/22 08:22 Wound Center Nurse 1 #1 Chin -Combined with other wound No -Current Size (cm) - Length 2.5 -Current Size (cm) - Width 2.5 -Current Size (cm) - Depth 0.5 -Total Square Cm 6.25 -Date of Last Picture (Recall this 10/03/22 field) -Photo Taken Yes -Epithelialization None Present -Tunneling No -Undermining/Tunneling No -Circular Undermining No -Exudate Amt Large -Exudate Type Serosanguineous -Wound Margin Thickened -Granulation Amt Medium (34-66%) -Granulation Quality Red -Slough/Fibrin Yes -Necrosis Amt Medium (34-66%) -Necrotic Tissue Type Adherent Slough -Texture (Candace-wound Skin Appearance) Assessed, Scarring -Moisture (Candace-wound Skin Appearance) Assessed -Color (Candace-wound Skin Appearance) Assessed -Temperature (Candace-wound Skin No Abnormality Appearance) (Pt Warm) -Tenderness on Palpation (Candace-wound No Skin Appearance) -Ulcer Cleansing Soap and Water -Foul Odor after Cleansing No -Anesthetic Used 5% Lidocaine Gel DHAVAL - Nurse 2 - General Ulcer CM Notes Start: 10/03/22 08:22 Freq: Status: Active Protocol: Activity Type Activity Date Activity User E-sign Co-sign Detail Recorded Client Recorded Date Recorded By Document 10/03/22 08:32 MW [id number] 10/03/22 08:37 MW 10/03/22 08:32 Wound Center Nurse 2 -Time 08:33 -Correct Patient Yes -Correct Side, Site, Position Yes -Correct Procedure Yes -Procedure Performed Yes -Type of Procedure Debridement -Clinical Debridement Subcutaneous -Tissue Removed Subcutaneous -Post Debridement (cm) - Length 2.4 -Post Debridement (cm) - Width 3.0 -Post Debridement (cm) - Depth 0.5 -Total Square (Post) (cm) 7.20 -Area of Debridement (cm) - Length 2.4 -Area of Debridement (cm) - Width 3.0 -Total Square (Area) (cm) 7.20 -Tunneling No -Undermining/Tunneling No -Circular Undermining No -Wound/Ulcer Outcome Not Healed -Ulcer Cleansing Rinsed/ Irrigated with Saline -Foul Odor after Cleansing No -Bioengineered Tissue No -Bleeding Controlled with Pressure -Treatment Response Procedure Tolerated Well -Offloading No -Debridement - Subq, 1st 20sq cm Yes Pain Scale: 0-10 Numeric Is Patient Pain Free? Yes - Nurse 3 - General Ulcer D/C NN Start: 10/03/22 08:22 Freq: Status: Active Protocol: Activity Type Activity Date Activity User E-sign Co-sign Detail Recorded Client Recorded Date Recorded By Document 10/03/22 08:43 [facility] [id number] 10/03/22 08:43 [facility] 10/03/22 08:43 Wound Care Nurse 3 #1 Chin -Ulcer Cleansing Rinsed/ Irrigated with Saline -Foul Odor after Cleansing No -Primary Dressing Applied Promogran -Primary Dressing Covered/Secured with Dry Gauze, Secured with Tape -Promogran 1 Treatment Response Procedure Tolerated Well Pain Scale: 0-10 Numeric Is Patient Pain Free? Yes - Visit Discharge Discharge Condition Stable Ambulatory Status Ambulatory Transportation Private Auto Accompanied by stefanie Assessment/Plan Assessment/Plan (1) Head and neck cancer: CODE(S): C76.0 - Malignant neoplasm of head, face and neck (2) Delayed surgical wound healing: CODE(S): T81.89XA - Other complications of procedures, not elsewhere classified, initial encounter QUALIFIERS: Encounter type: initial encounter Qualified Code(s): T81.89XA - Other complications of procedures, not elsewhere classified, initial encounter PLAN: Wash area with antibacterial soap and place Promogran and base cover with Adaptic gauze and paper tape daily dressings Follow-up in 1 week We will call with culture results. 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
[2022-10-10 08:29] VITALS: BP 121/59; PULSE 69; RESP 16; TEMP 36.3; BMI 22.3
--- NOTE | 2022-10-10 10:06 | PN.PCM_ITS ---
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 He received courses of chemotherapy followed by radiation treatments, which were concluded by the end of 2017. He recently underwent oral surgery and had 8 teeth extracted. Two extraction sites have failed to heal. On November 07, 2021, the patient underwent reconstruction of the jaw using bone from his left lower leg. He now has a chronic, non-healing surgical wound in the left sub- mandibular area. Progress of Wound: The wound size is about the same but the interior is less slough cleaned up really well with debridement with a #5 curette. Bleeding easier. Cultures came back positive for MRSA 2+ start him on Flagyl and some Levaquin will continue the Promogran it seems to be working to close about. Subjective Subjective Family was fine with outcomes Objective Data Objective Data As stated above there is no odor or any other issue such as redness or swelling or more slough noted but was positive on cultures for MRSA we will continue Promogran seems to be doing well with that have him wash better with Hibiclens and see if that works for cutting the MRSA Vital Signs: Vital Signs Temp Pulse Resp BP O2 Del Method 97.4 F L 69 16 121/59 H Room Air 10/10/22 08:29 10/10/22 08:29 10/10/22 08:29 10/10/22 08:29 10/10/22 08:29 Oxygen Delivery Method Room Air Weight: 130 lb Body Mass Index (BMI) 22.3 Lab / Micro Data Micro: Microbiology 10/03/22 08:35 Wound Abcess - Face Gram Stain - Final 10/03/22 08:35 Wound Abcess - Face Wound Culture - Final Meth. resistant Staph. aureus 10/03/22 08:35 Wound Abcess - Face Anaerobic Culture - Final Anaerobic cocci Physical Exam Const alert, oriented x3, no apparent distress and well nourished General Appearance: cooperative, comfortable and well developed Orientation / Consciousness: awake, oriented to person, oriented to place and oriented to time HEENT normocephalic and head/scalp atraumatic Head and Scalp: normal to inspection, normocephalic and atraumatic External Ear: external ears normal Throat: other Other Details: A tracheostomy tube is noted to be in place. Eyes PERRL and EOMs intact bilaterally General Eye: normal appearance of both eyes Resp normal respiratory effort, normal air movement, no retractions and no use of accessory muscles Extremity no calf tenderness General Extremity: Negative for clubbing or cyanosis Skin Wound Narrative: A large open wound is noted in the left submandibular area. Dimensions are documented elsewhere. There is a large amount of necrotic and nonviable tissue at the base of the wound. There is also a disagreeable odor. A nearby tracheostomy tube is noted in the midline. Swab cultures have been obtained, for both aerobic and anaerobic bacterial growth. Neuro oriented x3, CN's II-XII intact bilaterally and moves all extremities Sensorium / Orientation: awake, alert, oriented to person, oriented to place and oriented to time Psych Appearance: grossly normal and appropriate Attitude: calm Activity / Motor Behavior: appropriate eye contact Speech: normal speech Mood & Affect: euthymic mood Thought Process: normal thought process Thought Content: normal thought content Attention / Concentration: attention grossly intact Debridement Note Debridement Note Wound debrided: Left jaw surgical nonhealing Type of Debridement: Excisional debridement Anesthesia Used: 5% Lidocaine Gel Depth: in the subcutaneous layer Percentage of wound debrided: 100 Instrument Used: 5mm curette Tissue Removed: Fibrin slough Severity: Fat Layer Exposed Amount of bleeding with debridement: Mild Bleeding Controlled with: Compression and gauze Patient tolerated procedure: Patient tolerated procedure well Post-Debridement Measurements and Additional Note: Post-Debridement Measurements/Treatment - Nurse 1 - General Ulcer Assessment Start: 10/03/22 08:22 Freq: Status: Active Protocol: DHAVAL.ROXANA Activity Type Activity Date Activity User E-sign Co-sign Detail Recorded Client Recorded Date Recorded By Document 10/03/22 08:22 [facility] [id number] 10/03/22 08:25 [facility] Document 10/10/22 08:29 [facility] [id number] 10/10/22 08:32 [facility] 10/03/22 10/10/22 08:22 08:29 - Today's Visit Information Type of service Follow-up Visit Follow-up Visit (Physician/PER DIEM INTERPRETER (Physician/PER DIEM INTERPRETER ) ) Arrival Mode Ambulatory Ambulatory Transfer Assistance None None Accompanied by stefanie daughter Patient Identification Verified (Name & Yes Yes ) Patient Requires Transmission-Based No No Precautions Height and Weight Body Mass Index (BMI) 22.3 22.3 BMI Classification Normal Normal Vital Signs Temperature (97.8 F-99.1 F) 98 F 97.4 F L Temperature Source Temporal Temporal Pulse Rate (60-100) 76 69 Pulse Location Monitor Monitor Respiratory Rate (12-18) 16 16 Respiratory rate source Observation Observation Oxygen Delivery Method Room Air Room Air Blood Pressure (90/60-120/80) 122/56 H 121/59 H Blood Pressure Mean (mm Hg) 78 79 Source Monitor Monitor Position Sitting Sitting Blood Pressure Location Left Arm Left Arm History Since Last Visit- (Skip if this is Patient's initial visit) Have you changed medications since your No No last visit? Any new allergies or adverse reactions No No Had a fall/change in ADL's that may No No increase risk of falls Signs or symptoms of abuse and/or No No neglect since last visit Have you been in the hospital since your No No last visit? Has dressing in place as prescribed Yes Yes Has compression in place as prescribed N/A N/A Has offloadiing in place as prescribed N/A N/A Experienced any changes in pain level or No management Left Footwear Regular Shoe Regular Shoe Right Footwear Regular Shoe Regular Shoe Pain Scale: 0-10 Numeric Is Patient Pain Free? Yes Yes WC - Nurse 1 - General Ulcer Measurement Start: 10/03/22 08:22 Freq: Status: Active Protocol: Activity Type Activity Date Activity User E-sign Co-sign Detail Recorded Client Recorded Date Recorded By Document 10/03/22 08:22 [facility] [id number] 10/03/22 08:25 [facility] Document 10/10/22 08:29 [facility] [id number] 10/10/22 08:32 BMF 10/03/22 10/10/22 08:22 08:29 Wound Center Nurse 1 #1 Chin -Combined with other wound No No -Current Size (cm) - Length 2.5 2.5 -Current Size (cm) - Width 2.5 2.6 -Current Size (cm) - Depth 0.5 0.5 -Total Square Cm 6.25 6.50 -Date of Last Picture (Recall this 10/03/22 10/10/22 field) -Photo Taken Yes Yes -Epithelialization None Present None Present -Tunneling No No -Undermining/Tunneling No No -Circular Undermining No No -Exudate Amt Large Medium -Exudate Type Serosanguineous Serosanguineous -Wound Margin Thickened Thickened -Granulation Amt Medium (34-66%) Medium (34-66%) -Granulation Quality Red Pale,Red -Slough/Fibrin Yes Yes -Necrosis Amt Medium (34-66%) Medium (34-66%) -Necrotic Tissue Type Adherent Slough Adherent Slough -Texture (Candace-wound Skin Appearance) Assessed, Assessed, Scarring Scarring -Moisture (Candace-wound Skin Appearance) Assessed Assessed -Color (Candace-wound Skin Appearance) Assessed Assessed -Temperature (Candace-wound Skin No Abnormality No Abnormality Appearance) (Pt Warm) (Pt Warm) -Tenderness on Palpation (Candace-wound No No Skin Appearance) -Ulcer Cleansing Soap and Water Soap and Water -Foul Odor after Cleansing No No -Anesthetic Used 5% Lidocaine 5% Lidocaine Gel Gel WC - Nurse 2 - General Ulcer CM Notes Start: 10/03/22 08:22 Freq: Status: Active Protocol: Activity Type Activity Date Activity User E-sign Co-sign Detail Recorded Client Recorded Date Recorded By Document 10/03/22 08:32 MW [id number] 10/03/22 08:37 MW Document 10/10/22 08:39 MW [id number] 10/10/22 08:42 MW 10/03/22 10/10/22 08:32 08:39 Wound Center Nurse 2 #1 Chin -Time 08:33 08:39 -Correct Patient Yes Yes -Correct Side, Site, Position Yes Yes -Correct Procedure Yes Yes -Procedure Performed Yes Yes -Type of Procedure Debridement Debridement -Clinical Debridement Subcutaneous Subcutaneous -Tissue Removed Subcutaneous Subcutaneous -Post Debridement (cm) - Length 2.4 2.4 -Post Debridement (cm) - Width 3.0 2.7 -Post Debridement (cm) - Depth 0.5 0.5 -Total Square (Post) (cm) 7.20 6.48 -Area of Debridement (cm) - Length 2.4 2.4 -Area of Debridement (cm) - Width 3.0 2.7 -Total Square (Area) (cm) 7.20 6.48 -Tunneling No No -Undermining/Tunneling No No -Circular Undermining No No -Wound/Ulcer Outcome Not Healed Not Healed -Ulcer Cleansing Rinsed/ Rinsed/ Irrigated with Irrigated with Saline Saline -Foul Odor after Cleansing No No -Bioengineered Tissue No No -Bleeding Controlled with Pressure Pressure -Treatment Response Procedure Procedure Tolerated Well Tolerated Well -Offloading No No -Debridement - Subq, 1st 20sq cm Yes Yes Pain Scale: 0-10 Numeric Is Patient Pain Free? Yes Yes - Nurse 3 - General Ulcer D/C NN Start: 10/03/22 08:22 Freq: Status: Active Protocol: Activity Type Activity Date Activity User E-sign Co-sign Detail Recorded Client Recorded Date Recorded By Document 10/03/22 08:43 [facility] [id number] 10/03/22 08:43 BM Document 10/10/22 08:47 AK [id number] 10/10/22 08:48 [place] 10/03/22 10/10/22 08:43 08:47 Wound Care Nurse 3 #1 Chin -Ulcer Cleansing Rinsed/ Rinsed/ Irrigated with Irrigated with Saline Saline -Foul Odor after Cleansing No No -Negative Pressure Wound Therapy N/A -Primary Dressing Applied Promogran NonAdherent Contact Layer, Promogran -Primary Dressing Covered/Secured with Dry Gauze, Secured with Tape -Promogran 1 1 Treatment Response Procedure Tolerated Well Pain Scale: 0-10 Numeric Is Patient Pain Free? Yes Yes - Visit Discharge Discharge Condition Stable Stable Ambulatory Status Ambulatory Ambulatory Transportation Private Auto Private Auto Accompanied by stefanie daughter Medication Reconcilliation completed & Yes provided to patient/care provider Clinical Summary of Care Provided Yes Assessment/Plan Assessment/Plan (1) Head and neck cancer: CODE(S): C76.0 - Malignant neoplasm of head, face and neck (2) Delayed surgical wound healing: CODE(S): T81.89XA - Other complications of procedures, not elsewhere classified, initial encounter QUALIFIERS: Encounter type: initial encounter Qualified Code(s): T81.89XA - Other complications of procedures, not elsewhere classified, initial encounter PLAN: Wash area with antibacterial soap and place Promogran and base cover with Adaptic gauze and paper tape daily dressings Follow-up in 1 week Patient to take metronidazole 250 mg 3 times a day for 14 days and Levaquin 500 mg 1 p.o. 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
== END 2022-10-23 23:59 | disposition home or self-care (01) ==
LOC: WC 08:15
PROVIDERS: PCP Nurse Practitioner; Referring Provider Nurse Practitioner; Visit Provider Nurse Practitioner
DX: T81.89XA Other complications of procedures, not elsewhere classified, initial encounter (principal); Z93.0 Tracheostomy status; L59.8 Other specified disorders of the skin and subcutaneous tissue related to radiation; Y84.2 Radiological procedure and radiotherapy as the cause of abnormal reaction of the patient, or of later complication, without mention of misadventure at the time of the procedure; Z85.89 Personal history of malignant neoplasm of other organs and systems; Z92.3 Personal history of irradiation; Z79.899 Other long term (current) drug therapy; Z92.21 Personal history of antineoplastic chemotherapy
CPT/HCPCS: 11042; 87070; 87075; 87077; 87186; 87205

== ENCOUNTER 2022-11-14 08:30 | Outpatient (RCR) | payer OTHER, SELFPAY ==
[2022-01-31 09:09] VITALS: BMI 22.6
[2022-10-24 00:23] VITALS: BP 121/59; PULSE 69; RESP 16; TEMP 36.3; BMI 22.3
[2022-10-24 08:23] VITALS: BP 124/66; PULSE 75; TEMP 36.2; BMI 22.3
--- NOTE | 2022-10-24 11:06 | PCM.WC.PN ---
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 He received courses of chemotherapy followed by radiation treatments, which were concluded by the end of 2017. He recently underwent oral surgery and had 8 teeth extracted. Two extraction sites have failed to heal. On November 07, 2021, the patient underwent reconstruction of the jaw using bone from his left lower leg. 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 Progress of Wound: Wound has not been seen for 2 weeks looks really good he is starting develop new skin in his jaw. Removed a lot of product but not any slough. No odor finished his antibiotics as of this last weekend. We will continue using Promogran for now and follow-up in 2 weeks Subjective Subjective Very happy with his outcome Objective Data Objective Data Looks good slightly smaller filling in with new skin starting to look like a jaw. Vital Signs: Vital Signs Temp Pulse Resp BP 97.1 F L 75 16 124/66 H 10/24/22 08:23 10/24/22 08:23 10/24/22 00:23 10/24/22 08:23 Weight: 130 lb Body Mass Index (BMI) 22.3 Lab / Micro Data Attestation: I reviewed the patient's lab results. Physical Exam Const alert, oriented x3, no apparent distress and well nourished General Appearance: cooperative, comfortable and well developed Orientation / Consciousness: awake, oriented to person, oriented to place and oriented to time HEENT normocephalic and head/scalp atraumatic Head and Scalp: normal to inspection, normocephalic and atraumatic External Ear: external ears normal Throat: other Other Details: A tracheostomy tube is noted to be in place. Eyes PERRL and EOMs intact bilaterally General Eye: normal appearance of both eyes Resp normal respiratory effort, normal air movement, no retractions and no use of accessory muscles Extremity no calf tenderness General Extremity: Negative for clubbing or cyanosis Skin Wound Narrative: A large open wound is noted in the left submandibular area. Dimensions are documented elsewhere. There is a large amount of necrotic and nonviable tissue at the base of the wound. There is also a disagreeable odor. A nearby tracheostomy tube is noted in the midline. Swab cultures have been obtained, for both aerobic and anaerobic bacterial growth. Neuro oriented x3, CN's II-XII intact bilaterally and moves all extremities Sensorium / Orientation: awake, alert, oriented to person, oriented to place and oriented to time Psych Appearance: grossly normal and appropriate Attitude: calm Activity / Motor Behavior: appropriate eye contact Speech: normal speech Mood & Affect: euthymic mood Thought Process: normal thought process Thought Content: normal thought content Attention / Concentration: attention grossly intact Debridement Note Debridement Note Wound debrided: Left jaw surgical site nonhealing Type of Debridement: Excisional debridement Anesthesia Used: 5% Lidocaine Gel Depth: Down to and including healthy tissue and in the subcutaneous layer Percentage of wound debrided: 100 Instrument Used: 5mm curette Tissue Removed: Fibrin and product Severity: Fat Layer Exposed Amount of bleeding with debridement: Mild Bleeding Controlled with: Compression and gauze Patient tolerated procedure: Patient did not tolerate procedure well Post-Debridement Measurements and Additional Note: Post-Debridement Measurements/Treatment DHAVAL - Nurse 1 - General Ulcer Assessment Start: 10/24/22 08:18 Freq: Status: Active Protocol: BRANDAN Activity Type Activity Date Activity User E-sign Co-sign Detail Recorded Client Recorded Date Recorded By Document 10/24/22 08:23 SHANTELL [id number] 10/24/22 08:25 SHANTELL 10/24/22 08:23 - Today's Visit Information Type of service Follow-up 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 Any new allergies or adverse reactions No Had a fall/change in ADL's that may No increase risk of falls Signs or symptoms of abuse and/or No neglect since last visit Have you been in the hospital since your No last visit? Has dressing in place as prescribed Yes Has compression in place as prescribed N/A Has offloadiing in place as prescribed N/A Experienced any changes in pain level or No management Left Footwear Regular Shoe Right Footwear Regular Shoe Pain Scale: 0-10 Numeric Is Patient Pain Free? Yes - Nurse 1 - General Ulcer Measurement Start: 10/24/22 08:18 Freq: Status: Active Protocol: Activity Type Activity Date Activity User E-sign Co-sign Detail Recorded Client Recorded Date Recorded By Document 10/24/22 08:23 NM [id number] 10/24/22 08:25 AK 10/24/22 08:23 Wound Center Nurse 1 #1 Chin -Combined with other wound No -Current Size (cm) - Length 2.6 -Current Size (cm) - Width 3 -Current Size (cm) - Depth 0.1 -Total Square Cm 7.8 -Photo Taken Yes -Tunneling No -Undermining/Tunneling No -Circular Undermining No -Change in Wound Grade/Stage No -Exudate Amt Medium -Exudate Type Serosanguineous -Wound Margin Distinct, Outline Attached -Granulation Amt Small (1-33%) -Granulation Quality [place] -Slough/Fibrin Yes -Necrosis Amt Large (67-100%) -Necrotic Tissue Type Adherent Slough -Structure Exposed N/A -Texture (Candace-wound Skin Appearance) No Abnormality, Assessed -Moisture (Candace-wound Skin Appearance) No Abnormality, Assessed -Color (Candace-wound Skin Appearance) No Abnormality, Assessed -Temperature (Candace-wound Skin No Abnormality Appearance) (Pt Warm) -Tenderness on Palpation (Candace-wound No Skin Appearance) -Ulcer Cleansing Rinsed/ Irrigated with Saline -Foul Odor after Cleansing No -Anesthetic Used 4% Lidocaine Solution - Nurse 2 - General Ulcer CM Notes Start: 10/24/22 08:18 Freq: Status: Active Protocol: Activity Type Activity Date Activity User E-sign Co-sign Detail Recorded Client Recorded Date Recorded By Document 10/24/22 09:02 MW [id number] 10/24/22 09:04 MW 10/24/22 09:02 Wound Center Nurse 2 -Time 09:02 -Correct Patient Yes -Correct Side, Site, Position Yes -Correct Procedure Yes -Procedure Performed Yes -Type of Procedure Debridement -Clinical Debridement Subcutaneous -Tissue Removed Subcutaneous -Post Debridement (cm) - Length 2.5 -Post Debridement (cm) - Width 2.5 -Post Debridement (cm) - Depth 0.5 -Total Square (Post) (cm) 6.25 -Area of Debridement (cm) - Length 2.5 -Area of Debridement (cm) - Width 2.5 -Total Square (Area) (cm) 6.25 -Tunneling No -Undermining/Tunneling No -Circular Undermining No -Wound/Ulcer Outcome Not Healed -Ulcer Cleansing Rinsed/ Irrigated with Saline -Foul Odor after Cleansing No -Bioengineered Tissue No -Bleeding Controlled with Pressure -Treatment Response Procedure Tolerated Well -Offloading No -Debridement - Subq, 1st 20sq cm Yes Pain Scale: 0-10 Numeric Is Patient Pain Free? Yes - Nurse 3 - General Ulcer D/C NN Start: 10/24/22 08:18 Freq: Status: Active Protocol: Activity Type Activity Date Activity User E-sign Co-sign Detail Recorded Client Recorded Date Recorded By Document 10/24/22 10:43 [facility] [id number] 10/24/22 10:44 [facility] 10/24/22 10:43 Wound Care Center Nurse 3 #1 Chin -Ulcer Cleansing Rinsed/ Irrigated with Saline -Foul Odor after Cleansing No -Primary Dressing Applied NonAdherent Contact Layer, Promogran -Primary Dressing Covered/Secured with Dry Gauze, Secured with Tape -Promogran 1 Treatment Response Procedure Tolerated Well Pain Scale: 0-10 Numeric Is Patient Pain Free? Yes - Visit Discharge Discharge Condition Stable Ambulatory Status Ambulatory Transportation Private Auto Accompanied by stefanie
[2022-11-07 08:27] VITALS: BP 127/78; PULSE 88; TEMP 36.7; BMI 22.3
--- NOTE | 2022-11-07 09:20 | PN.PCM_ITS ---
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 He received courses of chemotherapy followed by radiation treatments, which were concluded by the end of 2017. He recently underwent oral surgery and had 8 teeth extracted. Two extraction sites have failed to heal. On November 07, 2021, the patient underwent reconstruction of the jaw using bone from his left lower leg. He now has a chronic, non-healing surgical wound in the left sub- mandibular area. Progress of Wound: Wound has not been seen for 2 weeks looks really good he is starting develop new skin in his jaw. We will continue using Promogran for now and follow-up in 2 weeks Subjective Subjective Very pleased with outcome so far Objective Data Objective Data The area is not much smaller but it is filling in from the bottom up specially on the right side of the wound is becoming more flushed with the neck skin. Coloring is good no odor noted did complain of a sore on his right chin on line of one of his graphing. We will apply some Aquacel extra protected and look at it again next week. Vital Signs: Vital Signs Temp Pulse Resp BP 98.1 F 88 16 127/78 H 11/07/22 08:27 11/07/22 08:27 10/24/22 00:23 11/07/22 08:27 Weight: 130 lb Body Mass Index (BMI) 22.3 Lab / Micro Data Attestation: I reviewed the patient's lab results. Physical Exam Const alert, oriented x3, no apparent distress and well nourished General Appearance: cooperative, comfortable and well developed Orientation / Consciousness: awake, oriented to person, oriented to place and oriented to time HEENT normocephalic and head/scalp atraumatic Head and Scalp: normal to inspection, normocephalic and atraumatic External Ear: external ears normal Throat: other Other Details: A tracheostomy tube is noted to be in place. Eyes PERRL and EOMs intact bilaterally General Eye: normal appearance of both eyes Resp normal respiratory effort, normal air movement, no retractions and no use of accessory muscles Extremity no calf tenderness General Extremity: Negative for clubbing or cyanosis Skin Wound Narrative: A large open wound is noted in the left submandibular area. Dimensions are documented elsewhere. There is a large amount of necrotic and nonviable tissue at the base of the wound. There is also a disagreeable odor. A nearby tracheostomy tube is noted in the midline. Swab cultures have been obtained, for both aerobic and anaerobic bacterial growth. Neuro oriented x3, CN's II-XII intact bilaterally and moves all extremities Sensorium / Orientation: awake, alert, oriented to person, oriented to place and oriented to time Psych Appearance: grossly normal and appropriate Attitude: calm Activity / Motor Behavior: appropriate eye contact Speech: normal speech Mood & Affect: euthymic mood Thought Process: normal thought process Thought Content: normal thought content Attention / Concentration: attention grossly intact Debridement Note Debridement Note Wound debrided: Left jaw postsurgery nonhealing Laterality: Left Type of Debridement: Excisional debridement Anesthesia Used: 5% Lidocaine Gel Depth: in the subcutaneous layer Percentage of wound debrided: 100 Instrument Used: 7mm curette Tissue Removed: Fibrin Severity: Fat Layer Exposed Amount of bleeding with debridement: Mild Bleeding Controlled with: Compression and gauze Patient tolerated procedure: Patient tolerated procedure well Post-Debridement Measurements and Additional Note: Post-Debridement Measurements/Treatment - Nurse 1 - General Ulcer Assessment Start: 10/24/22 08:18 Freq: Status: Active Protocol: DHAVAL.ROXANA Activity Type Activity Date Activity User E-sign Co-sign Detail Recorded Client Recorded Date Recorded By Document 10/24/22 08:23 WI [id number] 10/24/22 08:25 AK Document 11/07/22 08:27 WI Desktop 11/07/22 08:28 AK 10/24/22 11/07/22 08:23 08:27 - Today's Visit Information Type of service Follow-up Visit Follow-up Visit (Physician/QA SOFTWARE TEST ENGINEER (Physician/QA SOFTWARE TEST ENGINEER ) ) Arrival Mode Ambulatory Ambulatory Patient Identification Verified (Name & Yes Yes ) Patient Requires Transmission-Based No No Precautions Safety Precautions NA Height and Weight Body Mass Index (BMI) 22.3 22.3 BMI Classification Normal Normal Vital Signs Temperature (97.8 F-99.1 F) 97.1 F L 98.1 F Temperature Source Temporal Temporal Pulse Rate (60-100) 75 88 Pulse Location Monitor Monitor Blood Pressure (90/60-120/80) 124/66 H 127/78 H Blood Pressure Mean (mm Hg) 85 94 Source Monitor Monitor History Since Last Visit- (Skip if this is Patient's initial visit) Have you changed medications since your No No last visit? Any new allergies or adverse reactions No No Had a fall/change in ADL's that may No No increase risk of falls Signs or symptoms of abuse and/or No No neglect since last visit Have you been in the hospital since your No No last visit? Has dressing in place as prescribed Yes Yes Has compression in place as prescribed N/A N/A Has offloadiing in place as prescribed N/A N/A Experienced any changes in pain level or No No management Left Footwear Regular Shoe Regular Shoe Right Footwear Regular Shoe Regular Shoe Pain Scale: 0-10 Numeric Is Patient Pain Free? Yes Yes WC - Nurse 1 - General Ulcer Measurement Start: 10/24/22 08:18 Freq: Status: Active Protocol: Activity Type Activity Date Activity User E-sign Co-sign Detail Recorded Client Recorded Date Recorded By Document 10/24/22 08:23 AK [id number] 10/24/22 08:25 AK Document 11/07/22 08:27 AK Desktop 11/07/22 08:28 AK 10/24/22 11/07/22 08:23 08:27 Wound Center Nurse 1 #1 Chin -Combined with other wound No No -Current Size (cm) - Length 2.6 2.2 -Current Size (cm) - Width 3 2.2 -Current Size (cm) - Depth 0.1 0.4 -Total Square Cm 7.8 4.84 -Photo Taken Yes Yes -Tunneling No No -Undermining/Tunneling No No -Circular Undermining No No -Change in Wound Grade/Stage No No -Exudate Amt Medium Medium -Exudate Type Serosanguineous Serosanguineous -Wound Margin Distinct, Distinct, Outline Outline Attached Attached -Granulation Amt Small (1-33%) Small (1-33%) -Granulation Quality [place] -Slough/Fibrin Yes Yes -Necrosis Amt Large (67-100%) Large (67-100%) -Necrotic Tissue Type Adherent Slough Adherent Slough -Structure Exposed N/A N/A -Texture (Candace-wound Skin Appearance) No Abnormality, No Abnormality, Assessed Assessed -Moisture (Candace-wound Skin Appearance) No Abnormality, No Abnormality, Assessed Assessed -Color (Candace-wound Skin Appearance) No Abnormality, No Abnormality, Assessed Assessed -Temperature (Candace-wound Skin No Abnormality No Abnormality Appearance) (Pt Warm) (Pt Warm) -Tenderness on Palpation (Candace-wound No No Skin Appearance) -Ulcer Cleansing Rinsed/ Soap and Water Irrigated with Saline -Foul Odor after Cleansing No No -Anesthetic Used 4% Lidocaine 4% Lidocaine Solution Solution WC - Nurse 2 - General Ulcer CM Notes Start: 10/24/22 08:18 Freq: Status: Active Protocol: Activity Type Activity Date Activity User E-sign Co-sign Detail Recorded Client Recorded Date Recorded By Document 10/24/22 09:02 MW [id number] 10/24/22 09:04 MW Document 11/07/22 08:44 MW [id number] 11/07/22 08:46 MW 10/24/22 11/07/22 09:02 08:44 Wound Center Nurse 2 #1 Chin -Time 09:02 08:44 -Correct Patient Yes Yes -Correct Side, Site, Position Yes Yes -Correct Procedure Yes Yes -Procedure Performed Yes Yes -Type of Procedure Debridement Debridement -Clinical Debridement Subcutaneous Subcutaneous -Tissue Removed Subcutaneous Subcutaneous -Post Debridement (cm) - Length 2.5 2.5 -Post Debridement (cm) - Width 2.5 2.8 -Post Debridement (cm) - Depth 0.5 0.5 -Total Square (Post) (cm) 6.25 7.00 -Area of Debridement (cm) - Length 2.5 2.5 -Area of Debridement (cm) - Width 2.5 2.8 -Total Square (Area) (cm) 6.25 7.00 -Tunneling No No -Undermining/Tunneling No No -Circular Undermining No No -Wound/Ulcer Outcome Not Healed Not Healed -Ulcer Cleansing Rinsed/ Rinsed/ Irrigated with Irrigated with Saline Saline -Foul Odor after Cleansing No No -Bioengineered Tissue No No -Bleeding Controlled with Pressure Pressure -Treatment Response Procedure Procedure Tolerated Well Tolerated Well -Offloading No -Debridement - Subq, 1st 20sq cm Yes Yes Pain Scale: 0-10 Numeric Is Patient Pain Free? Yes Yes DHAVAL - Nurse 3 - General Ulcer D/C NN Start: 10/24/22 08:18 Freq: Status: Active Protocol: Activity Type Activity Date Activity User E-sign Co-sign Detail Recorded Client Recorded Date Recorded By Document 10/24/22 10:[address] [facility] [id number] 10/24/22 10:[address] [facility] Document 11/07/22 08:52 ML [id number] 11/07/22 08:55 ML 10/24/22 11/07/22 10:43 08:52 Wound Care Center Nurse 3 #1 Chin -Ulcer Cleansing Rinsed/ Irrigated with Saline -Foul Odor after Cleansing No -Primary Dressing Applied NonAdherent Aquacel Extra, Contact Layer, Promogran Promogran -Other Dressing adaptic aquacel to pad and protect right side under chin -Primary Dressing Covered/Secured with Dry Gauze, Dry Gauze, Secured with Secured with Tape Tape -Other Covering blue tape -Aquacel Extra 1 -Promogran 1 1 Treatment Response Procedure Tolerated Well Pain Scale: 0-10 Numeric Is Patient Pain Free? 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 neoplasm of head, face and neck (2) Delayed surgical wound healing: CODE(S): T81.89XA - Other complications of procedures, not elsewhere classified, initial encounter QUALIFIERS: Encounter type: initial encounter Qualified Code(s): T81.89XA - Other complications of procedures, not elsewhere classified, initial encounter PLAN: Wash area with antibacterial soap and place Promogran and base cover with Adaptic gauze and paper tape daily dressings Follow-up in 1 week (3) Nonhealing surgical wound: CODE(S): T81.89XA - Other complications of procedures, not elsewhere classified, initial encounter QUALIFIERS: Encounter type: initial encounter Qualified Code(s): T81.89XA - Other complications of procedures, not elsewhere classified, initial encounter (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
[2022-11-14 08:59] VITALS: BP 113/53; PULSE 75; TEMP 36.4; BMI 22.3
--- NOTE | 2022-11-14 12:02 | PCM.WC.PN ---
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 He received courses of chemotherapy followed by radiation treatments, which were concluded by the end of 2017. He recently underwent oral surgery and had 8 teeth extracted. Two extraction sites have failed to heal. On November 07, 2021, the patient underwent reconstruction of the jaw using bone from his left lower leg. 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 Progress of Wound: Left left jaw more shallow and healing well. 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 No smell or odor noted Subjective Subjective Patient is pleased with outcomes with no concerns Objective Data Objective Data Same as above healing well measurements are slightly smaller depth is better no sign of infection but will culture because he had MRSA over a month and a half ago Vital Signs: Vital Signs Temp Pulse Resp BP 97.6 F L 75 16 113/53 L 11/14/22 08:59 11/14/22 08:59 10/24/22 00:23 11/14/22 08:59 Weight: 130 lb Body Mass Index (BMI) 22.3 Lab / Micro Data Attestation: I reviewed the patient's lab results. Physical Exam Const alert, oriented x3, no apparent distress and well nourished General Appearance: cooperative, comfortable and well developed Orientation / Consciousness: awake, oriented to person, oriented to place and oriented to time HEENT normocephalic and head/scalp atraumatic Head and Scalp: normal to inspection, normocephalic and atraumatic External Ear: external ears normal Throat: other Other Details: A tracheostomy tube is noted to be in place. Eyes PERRL and EOMs intact bilaterally General Eye: normal appearance of both eyes Resp normal respiratory effort, normal air movement, no retractions and no use of accessory muscles Extremity no calf tenderness General Extremity: Negative for clubbing or cyanosis Skin Wound Narrative: A large open wound is noted in the left submandibular area. Dimensions are documented elsewhere. There is a large amount of necrotic and nonviable tissue at the base of the wound. There is also a disagreeable odor. A nearby tracheostomy tube is noted in the midline. Swab cultures have been obtained, for both aerobic and anaerobic bacterial growth. Neuro oriented x3, CN's II-XII intact bilaterally and moves all extremities Sensorium / Orientation: awake, alert, oriented to person, oriented to place and oriented to time Psych Appearance: grossly normal and appropriate Attitude: calm Activity / Motor Behavior: appropriate eye contact Speech: normal speech Mood & Affect: euthymic mood Thought Process: normal thought process Thought Content: normal thought content Attention / Concentration: attention grossly intact Debridement Note Debridement Note Wound debrided: Left jaw postop still open nonhealing Type of Debridement: Excisional debridement Anesthesia Used: 5% Lidocaine Gel Depth: in the subcutaneous layer Percentage of wound debrided: 100 Instrument Used: 5mm curette Tissue Removed: Fibrin Severity: Fat Layer Exposed Amount of bleeding with debridement: Mild Bleeding Controlled with: Compression and gauze Patient tolerated procedure: Patient tolerated procedure well Post-Debridement Measurements and Additional Note: Post-Debridement Measurements/Treatment - Nurse 1 - General Ulcer Assessment Start: 10/24/22 08:18 Freq: Status: Active Protocol: BRANDAN Activity Type Activity Date Activity User E-sign Co-sign Detail Recorded Client Recorded Date Recorded By Document 10/24/22 08:23 KS [id number] 10/24/22 08:25 AK Document 11/07/22 08:27 KS Desktop 11/07/22 08:28 KS Document 11/14/22 08:59 KS [id number] 11/14/22 09:00 AK 10/24/22 11/07/22 11/14/22 08:23 08:27 08:59 - Today's Visit Information Type of service Follow-up Visit Follow-up Visit Follow-up Visit (Physician/E COMMERCE STRATEGIST (Physician/E COMMERCE STRATEGIST (Physician/E COMMERCE STRATEGIST ) ) ) Arrival Mode Ambulatory Ambulatory Ambulatory Patient Identification Verified (Name & Yes Yes Yes ) Patient Requires Transmission-Based No No No Precautions Safety Precautions NA Height and Weight Body Mass Index (BMI) 22.3 22.3 22.3 BMI Classification Normal Normal Normal Vital Signs Temperature (97.8 F-99.1 F) 97.1 F L 98.1 F 97.6 F L Temperature Source Temporal Temporal Temporal Pulse Rate (60-100) 75 88 75 Pulse Location Monitor Monitor Monitor Blood Pressure (90/60-120/80) 124/66 H 127/78 H 113/53 L Blood Pressure Mean (mm Hg) 85 94 73 Source Monitor Monitor Monitor History Since Last Visit- (Skip if this is Patient's initial visit) Have you changed medications since your No No No last visit? Any new allergies or adverse reactions No No No Had a fall/change in ADL's that may No No No increase risk of falls Signs or symptoms of abuse and/or No No No neglect since last visit Have you been in the hospital since your No No No last visit? Has dressing in place as prescribed Yes Yes Yes Has compression in place as prescribed N/A N/A N/A Has offloadiing in place as prescribed N/A N/A N/A Experienced any changes in pain level or No No No management Left Footwear Regular Shoe Regular Shoe Regular Shoe Right Footwear Regular Shoe Regular Shoe Regular Shoe Pain Scale: 0-10 Numeric Is Patient Pain Free? Yes Yes Yes WC - Nurse 1 - General Ulcer Measurement Start: 10/24/22 08:18 Freq: Status: Active Protocol: Activity Type Activity Date Activity User E-sign Co-sign Detail Recorded Client Recorded Date Recorded By Document 10/24/22 08:23 KS [id number] 10/24/22 08:25 AK Document 11/07/22 08:27 AK Desktop 11/07/22 08:28 AK Document 11/14/22 08:59 AK [id number] 11/14/22 09:00 AK 10/24/22 11/07/22 11/14/22 08:23 08:27 08:59 Wound Center Nurse 1 #1 Chin -Combined with other wound No No No -Current Size (cm) - Length 2.6 2.2 2.5 -Current Size (cm) - Width 3 2.2 2.3 -Current Size (cm) - Depth 0.1 0.4 0.4 -Total Square Cm 7.8 4.84 5.75 -Date of Last Picture (Recall this 11/14/22 field) -Photo Taken Yes Yes Yes -Tunneling No No No -Undermining/Tunneling No No No -Circular Undermining No No No -Change in Wound Grade/Stage No No No -Exudate Amt Medium Medium Medium -Exudate Type Serosanguineous Serosanguineous Serosanguineous -Wound Margin Distinct, Distinct, Distinct, Outline Outline Outline Attached Attached Attached -Granulation Amt Small (1-33%) Small (1-33%) Small (1-33%) -Granulation Quality Morehead Morehead Morehead -Slough/Fibrin Yes Yes Yes -Necrosis Amt Large (67-100%) Large (67-100%) Large (67-100%) -Necrotic Tissue Type Adherent Slough Adherent Slough Adherent Slough -Structure Exposed N/A N/A N/A -Texture (Candace-wound Skin Appearance) No Abnormality, No Abnormality, No Abnormality, Assessed Assessed Assessed -Moisture (Candace-wound Skin Appearance) No Abnormality, No Abnormality, No Abnormality, Assessed Assessed Assessed -Color (Candace-wound Skin Appearance) No Abnormality, No Abnormality, No Abnormality, Assessed Assessed Assessed -Temperature (Candace-wound Skin No Abnormality No Abnormality Appearance) (Pt Warm) (Pt Warm) -Tenderness on Palpation (Candace-wound No No Skin Appearance) -Ulcer Cleansing Rinsed/ Soap and Water Irrigated with Saline -Foul Odor after Cleansing No No -Anesthetic Used 4% Lidocaine 4% Lidocaine Solution Solution WC - Nurse 2 - General Ulcer CM Notes Start: 10/24/22 08:18 Freq: Status: Active Protocol: Activity Type Activity Date Activity User E-sign Co-sign Detail Recorded Client Recorded Date Recorded By Document 10/24/22 09:02 MW [id number] 10/24/22 09:04 MW Document 11/07/22 08:44 MW [id number] 11/07/22 08:46 MW Document 11/14/22 08:52 MW [id number] 11/14/22 08:53 MW 10/24/22 11/07/22 11/14/22 09:02 08:44 08:52 Wound Center Nurse 2 #1 Chin -Time 09:02 08:44 08:53 -Correct Patient Yes Yes Yes -Correct Side, Site, Position Yes Yes Yes -Correct Procedure Yes Yes Yes -Procedure Performed Yes Yes Yes -Type of Procedure Debridement Debridement Debridement -Clinical Debridement Subcutaneous Subcutaneous Subcutaneous -Tissue Removed Subcutaneous Subcutaneous Subcutaneous -Post Debridement (cm) - Length 2.5 2.5 2.0 -Post Debridement (cm) - Width 2.5 2.8 2.3 -Post Debridement (cm) - Depth 0.5 0.5 0.5 -Total Square (Post) (cm) 6.25 7.00 4.60 -Area of Debridement (cm) - Length 2.5 2.5 2.0 -Area of Debridement (cm) - Width 2.5 2.8 2.3 -Total Square (Area) (cm) 6.25 7.00 4.60 -Tunneling No No No -Undermining/Tunneling No No No -Circular Undermining No No No -Wound/Ulcer Outcome Not Healed Not Healed Not Healed -Ulcer Cleansing Rinsed/ Rinsed/ Rinsed/ Irrigated with Irrigated with Irrigated with Saline Saline Saline -Foul Odor after Cleansing No No No -Bioengineered Tissue No No No -Bleeding Controlled with Pressure Pressure Pressure -Treatment Response Procedure Procedure Procedure Tolerated Well Tolerated Well Tolerated Well -Offloading No No -Debridement - Subq, 1st 20sq cm Yes Yes Yes Pain Scale: 0-10 Numeric Is Patient Pain Free? Yes Yes Yes WC - Nurse 3 - General Ulcer D/C NN Start: 10/24/22 08:18 Freq: Status: Active Protocol: Activity Type Activity Date Activity User E-sign Co-sign Detail Recorded Client Recorded Date Recorded By Document 10/24/22 10:43 [facility] [id number] 10/24/22 10:44 [facility] Document 11/07/22 08:52 ML [id number] 11/07/22 08:55 ML Document 11/14/22 09:05 [facility] [id number] 11/14/22 09:05 [facility] 10/24/22 11/07/22 11/14/22 10:43 08:52 09:05 Wound Care Center Nurse 3 #1 Chin -Ulcer Cleansing Rinsed/ Rinsed/ Irrigated with Irrigated with Saline Saline -Foul Odor after Cleansing No No -Primary Dressing Applied NonAdherent Aquacel Extra, Aquacel Extra, Contact Layer, Promogran NonAdherent Promogran Contact Layer, Promogran -Other Dressing adaptic aquacel aquacel extra to pad and to r side chin protect right area w/ 2x2 side under chin gauze & tape -Primary Dressing Covered/Secured with Dry Gauze, Dry Gauze, Dry Gauze, Secured with Secured with Secured with Tape Tape Tape -Other Covering blue tape silicone tape -Aquacel Extra 1 1 -Promogran 1 1 1 Treatment Response Procedure Tolerated Well Pain Scale: 0-10 Numeric Is Patient Pain Free? Yes 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 neoplasm of head, face and neck (2) Delayed surgical wound healing: CODE(S): T81.89XA - Other complications of procedures, not elsewhere classified, initial encounter QUALIFIERS: Encounter type: initial encounter Qualified Code(s): T81.89XA - Other complications of procedures, not elsewhere classified, initial encounter PLAN: Wash area with antibacterial soap and place Promogran and base cover with Adaptic gauze and paper tape daily dressings Will call with culture results within the next week Follow-up in 1 week (3) Nonhealing surgical wound: CODE(S): T81.89XA - Other complications of procedures, not elsewhere classified, initial encounter QUALIFIERS: Encounter type: initial encounter Qualified Code(s): T81.89XA - Other complications of procedures, not elsewhere classified, initial encounter (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
== END 2022-11-20 23:59 | disposition home or self-care (01) ==
LOC: WC 08:30
PROVIDERS: PCP Nurse Practitioner; Referring Provider Nurse Practitioner; Visit Provider Nurse Practitioner
DX: L59.8 Other specified disorders of the skin and subcutaneous tissue related to radiation (principal); Z93.0 Tracheostomy status; C76.0 Malignant neoplasm of head, face and neck; T81.89XA Other complications of procedures, not elsewhere classified, initial encounter; Y84.2 Radiological procedure and radiotherapy as the cause of abnormal reaction of the patient, or of later complication, without mention of misadventure at the time of the procedure; Z79.890 Hormone replacement therapy; Z79.899 Other long term (current) drug therapy; Z85.89 Personal history of malignant neoplasm of other organs and systems; Z92.3 Personal history of irradiation; Z92.21 Personal history of antineoplastic chemotherapy; Z86.14 Personal history of Methicillin resistant Staphylococcus aureus infection
CPT/HCPCS: 11042; 87070; 87075; 87077; 87186; 87205

== ENCOUNTER 2022-12-12 08:30 | Outpatient (RCR) | payer OTHER, SELFPAY ==
[2022-01-31 09:09] VITALS: BMI 22.6
[2022-11-21 00:17] VITALS: BP 113/53; PULSE 75; RESP 16; TEMP 36.4; BMI 22.3
[2022-11-28 08:23] VITALS: BP 115/56; PULSE 77; RESP 18; TEMP 35.9; BMI 22.3
--- NOTE | 2022-11-28 10:51 | PN.PCM_ITS ---
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 He received courses of chemotherapy followed by radiation treatments, which were concluded by the end of 2017. He recently underwent oral surgery and had 8 teeth extracted. Two extraction sites have failed to heal. On November 07, 2021, the patient underwent reconstruction of the jaw using bone from his left lower leg. He now has a chronic, non-healing surgical wound in the left sub- mandibular area. Progress of Wound: Continues to improve has not seen him for 2 weeks because the insurance problems. Finished antibiotic therapy restarted a new 1 that we started him on for his E. coli growing in his wound. We will continue using the Ruth seems to be healing well Subjective Subjective Patient is happy with outcomes Objective Data Objective Data Progressing okay about the same in size but depth is improving filling in nicely we will continue using Promogran for this Vital Signs: Vital Signs Temp Pulse Resp BP O2 Del Method 96.7 F L 77 18 115/56 L Room Air 11/28/22 08:23 11/28/22 08:23 11/28/22 08:23 11/28/22 08:23 11/28/22 08:23 Oxygen Delivery Method Room Air Weight: 130 lb Body Mass Index (BMI) 22.3 Lab / Micro Data Attestation: I reviewed the patient's lab results. Physical Exam Narrative ECOG 1 Hard of hearing Const alert, oriented x3 and no apparent distress General Appearance: cooperative and comfortable HEENT normocephalic HEENT Narrative: Reconstruction of the lower face, soft tissue edema Mouth: No thrush Eyes General Eye: normal appearance of both eyes Conjunctiva: conjunctiva normal Sclera: sclera normal Neck no lymphadenopathy and no JVD Neck Narrative: Postoperative changes and flap. Wound is covered with surgical dressing General: tracheostomy present Lymph Lymphatic: no lymphadenopathy noted Chest Chest: symmetrical chest wall rise Resp Auscultation: diminished lung sounds bilateral and diffuse Cardio regular rate and regular rhythm Jugular Venous Distention: Negative for JVD GI soft to palpation, non-tender and non-distended; Negative for hepatosplenomegaly GI Narrative: PEG tube Inspection: GI tube present no CVA tenderness Back/Spine no thoracic nor lumbar tenderness Extremity General Extremity: Negative for clubbing, cyanosis or edema Skin no rashes or lesions noted Neuro oriented x3, CN's II-XII intact bilaterally and moves all extremities Neuro Narrative: Bilateral symmetric wasting of first interosseous muscles. Coordination / Balance: aopzgm-qm-vdmw test normal Speech: speech abnormal Gait (Neuro): normal gait Psych mental status grossly normal, thought process normal, cooperative and affect normal Debridement Note Debridement Note Wound debrided: Left jaw postoperative nonhealing wound Type of Debridement: Excisional debridement Anesthesia Used: 5% Lidocaine Gel Depth: in the subcutaneous layer Percentage of wound debrided: 100 Instrument Used: 5mm curette Tissue Removed: Fibrin Severity: Fat Layer Exposed Amount of bleeding with debridement: Mild Bleeding Controlled with: Compression and gauze Patient tolerated procedure: Patient tolerated procedure well Post-Debridement Measurements and Additional Note: Post-Debridement Measurements/Treatment - Nurse 1 - General Ulcer Assessment Start: 11/28/22 08:23 Freq: Status: Active Protocol: BRANDAN Activity Type Activity Date Activity User E-sign Co-sign Detail Recorded Client Recorded Date Recorded By Document 11/28/22 08:23 [facility] [id number] 11/28/22 08:25 [facility] 11/28/22 08:23 - Today's Visit Information Type of service Follow-up Visit (Physician/RESEARCH FELLOW ) Arrival Mode Ambulatory Transfer Assistance None Patient Identification Verified (Name & Yes ) Patient Requires Transmission-Based No Precautions Height and Weight Body Mass Index (BMI) 22.3 BMI Classification Normal Vital Signs Temperature (97.8 F-99.1 F) 96.7 F L Temperature Source Temporal Pulse Rate (60-100) 77 Pulse Location Monitor Respiratory Rate (12-18) 18 Respiratory rate source Observation Oxygen Delivery Method Room Air Blood Pressure (90/60-120/80) 115/56 L Blood Pressure Mean (mm Hg) 75 Source Monitor Position Sitting Blood Pressure Location Left Arm History Since Last Visit- (Skip if this is Patient's initial visit) Have you changed medications since your No last visit? Any new allergies or adverse reactions No Had a fall/change in ADL's that may No increase risk of falls Signs or symptoms of abuse and/or No neglect since last visit Have you been in the hospital since your No last visit? Has dressing in place as prescribed Yes Has compression in place as prescribed N/A Has offloadiing in place as prescribed N/A Experienced any changes in pain level or No management Left Footwear Regular Shoe Right Footwear Regular Shoe Pain Scale: 0-10 Numeric Is Patient Pain Free? Yes - Nurse 1 - General Ulcer Measurement Start: 11/28/22 08:23 Freq: Status: Active Protocol: Activity Type Activity Date Activity User E-sign Co-sign Detail Recorded Client Recorded Date Recorded By Document 11/28/22 08:23 [facility] [id number] 11/28/22 08:25 [facility] 11/28/22 08:23 Wound Center Nurse 1 #1 Chin -Combined with other wound No -Current Size (cm) - Length 3 -Current Size (cm) - Width 0.6 -Current Size (cm) - Depth 0.3 -Total Square Cm 1.8 -Date of Last Picture (Recall this 11/28/22 field) -Photo Taken Yes -Epithelialization None Present -Tunneling No -Undermining/Tunneling No -Circular Undermining No -Exudate Amt Medium -Exudate Type Serosanguineous -Wound Margin Distinct, Outline Attached -Granulation Amt Medium (34-66%) -Granulation Quality Red -Slough/Fibrin Yes -Necrosis Amt Medium (34-66%) -Necrotic Tissue Type Adherent Slough -Texture (Candace-wound Skin Appearance) Assessed, Scarring -Moisture (Candace-wound Skin Appearance) Assessed -Color (Candace-wound Skin Appearance) Assessed -Temperature (Candace-wound Skin No Abnormality Appearance) (Pt Warm) -Tenderness on Palpation (Candace-wound No Skin Appearance) -Ulcer Cleansing Rinsed/ Irrigated with Saline -Anesthetic Used 5% Lidocaine Gel - Nurse 3 - General Ulcer D/C NN Start: 11/28/22 08:23 Freq: Status: Active Protocol: Activity Type Activity Date Activity User E-sign Co-sign Detail Recorded Client Recorded Date Recorded By Document 11/28/22 08:49 [facility] [id number] 11/28/22 08:49 [facility] 11/28/22 08:49 Wound Care Center Nurse 3 -Ulcer Cleansing Rinsed/ Irrigated with Saline -Foul Odor after Cleansing No -Primary Dressing Applied NonAdherent Contact Layer, Promogran -Primary Dressing Covered/Secured with Dry Gauze, Secured with Tape -Promogran 1 Treatment Response Procedure Tolerated Well Pain Scale: 0-10 Numeric Is Patient Pain Free? Yes WC - Visit Discharge Discharge Condition Stable Ambulatory Status Ambulatory Transportation Private Auto Assessment/Plan Assessment/Plan (1) Head and neck cancer: CODE(S): C76.0 - Malignant neoplasm of head, face and neck (2) Delayed surgical wound healing: CODE(S): T81.89XA - Other complications of procedures, not elsewhere classified, initial encounter QUALIFIERS: Encounter type: initial encounter Qualified Code(s): T81.89XA - Other complications of procedures, not elsewhere classified, initial encounter PLAN: Wash area with antibacterial soap and place Promogran and base cover with Adaptic gauze and paper tape daily dressings Culture results were positive start cefdinir 300 mg twice daily for 10 days Follow-up in 1 week (3) Nonhealing surgical wound: CODE(S): T81.89XA - Other complications of procedures, not elsewhere classified, initial encounter QUALIFIERS: Encounter type: initial encounter Qualified Code(s): T81.89XA - Other complications of procedures, not elsewhere classified, initial encounter (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
[2022-12-05 08:22] VITALS: BP 113/62; PULSE 70; TEMP 36.2; BMI 22.3
--- NOTE | 2022-12-05 10:18 | PCM.WC.PN ---
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 He received courses of chemotherapy followed by radiation treatments, which were concluded by the end of 2018. He recently underwent oral surgery and had 8 teeth extracted. Two extraction sites have failed to heal. On November 07, 2021, the patient underwent reconstruction of the jaw using bone from his left lower leg. 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 Progress of Wound: Continues to improve, finished all antibiotic therapy. We will continue using the Ruth seems to be healing well Subjective Subjective Daughter here seems pleased with outcomes Objective Data Objective Data Improving in size and depth filling in nicely bleeds easily with debridement Vital Signs: Vital Signs Temp Pulse Resp BP O2 Del Method 97.2 F L 70 18 113/62 Room Air 12/05/22 08:22 12/05/22 08:22 11/28/22 08:23 12/05/22 08:22 12/05/22 08:22 Oxygen Delivery Method Room Air Weight: 130 lb Body Mass Index (BMI) 22.3 Physical Exam Narrative ECOG 1 Hard of hearing Const alert, oriented x3 and no apparent distress General Appearance: cooperative and comfortable HEENT normocephalic HEENT Narrative: Reconstruction of the lower face, soft tissue edema Mouth: No thrush Eyes General Eye: normal appearance of both eyes Conjunctiva: conjunctiva normal Sclera: sclera normal Neck no lymphadenopathy and no JVD Neck Narrative: Postoperative changes and flap. Wound is covered with surgical dressing General: tracheostomy present Lymph Lymphatic: no lymphadenopathy noted Chest Chest: symmetrical chest wall rise Resp Auscultation: diminished lung sounds bilateral and diffuse Cardio regular rate and regular rhythm Jugular Venous Distention: Negative for JVD GI soft to palpation, non-tender and non-distended; Negative for hepatosplenomegaly GI Narrative: PEG tube Inspection: GI tube present no CVA tenderness Back/Spine no thoracic nor lumbar tenderness Extremity General Extremity: Negative for clubbing, cyanosis or edema Skin no rashes or lesions noted Neuro oriented x3, CN's II-XII intact bilaterally and moves all extremities Neuro Narrative: Bilateral symmetric wasting of first interosseous muscles. Coordination / Balance: [id number] test normal Speech: speech abnormal Gait (Neuro): normal gait Psych mental status grossly normal, thought process normal, cooperative and affect normal Debridement Note Debridement Note Wound debrided: Left jaw nonhealing surgical wound Type of Debridement: Excisional debridement Anesthesia Used: 5% Lidocaine Gel Depth: in the subcutaneous layer Percentage of wound debrided: 100 Instrument Used: 5mm curette Tissue Removed: Fibrin Severity: Fat Layer Exposed Amount of bleeding with debridement: Mild Bleeding Controlled with: Compression and gauze Patient tolerated procedure: Patient tolerated procedure well Post-Debridement Measurements and Additional Note: Post-Debridement Measurements/Treatment - Nurse 1 - General Ulcer Assessment Start: 11/28/22 08:23 Freq: Status: Active Protocol: [employer] Activity Type Activity Date Activity User E-sign Co-sign Detail Recorded Client Recorded Date Recorded By Document 11/28/22 08:23 [facility] [id number] 11/28/22 08:25 [facility] Document 12/05/22 08:22 [facility] [id number] 12/05/22 08:27 [facility] 11/28/22 12/05/22 08:23 08:22 - Today's Visit Information Type of service Follow-up Visit Follow-up Visit (Physician/MOLD CHANGER (Physician/MOLD CHANGER ) ) Arrival Mode Ambulatory Ambulatory Transfer Assistance None None Accompanied by stefanie Patient Identification Verified (Name & Yes Yes ) Patient Requires Transmission-Based No No Precautions Height and Weight Body Mass Index (BMI) 22.3 22.3 BMI Classification Normal Normal Vital Signs Temperature (97.8 F-99.1 F) 96.7 F L 97.2 F L Temperature Source Temporal Temporal Pulse Rate (60-100) 77 70 Pulse Location Monitor Monitor Respiratory Rate (12-18) 18 Respiratory rate source Observation Observation Oxygen Delivery Method Room Air Room Air Blood Pressure (90/60-120/80) 115/56 L 113/62 Blood Pressure Mean (mm Hg) 75 79 Source Monitor Monitor Position Sitting Sitting Blood Pressure Location Left Arm Left Arm History Since Last Visit- (Skip if this is Patient's initial visit) Have you changed medications since your No No last visit? Any new allergies or adverse reactions No No Had a fall/change in ADL's that may No No increase risk of falls Signs or symptoms of abuse and/or No No neglect since last visit Have you been in the hospital since your No No last visit? Has dressing in place as prescribed Yes Yes Has compression in place as prescribed N/A N/A Has offloadiing in place as prescribed N/A N/A Experienced any changes in pain level or No No management Left Footwear Regular Shoe Regular Shoe Right Footwear Regular Shoe Regular Shoe Pain Scale: 0-10 Numeric Is Patient Pain Free? Yes Yes - Nurse 1 - General Ulcer Measurement Start: 11/28/22 08:23 Freq: Status: Active Protocol: Activity Type Activity Date Activity User E-sign Co-sign Detail Recorded Client Recorded Date Recorded By Document 11/28/22 08:23 [facility] [id number] 11/28/22 08:25 BM Document 12/05/22 08:22 [facility] [id number] 12/05/22 08:27 BM 11/28/22 12/05/22 08:23 08:22 Wound Center Nurse 1 #1 Chin -Combined with other wound No No -Current Size (cm) - Length 3 2.4 -Current Size (cm) - Width 0.6 2.2 -Current Size (cm) - Depth 0.3 0.4 -Total Square Cm 1.8 5.28 -Date of Last Picture (Recall this 11/28/22 12/05/22 field) -Photo Taken Yes Yes -Epithelialization None Present None Present -Tunneling No No -Undermining/Tunneling No No -Circular Undermining No No -Exudate Amt Medium Small -Exudate Type Serosanguineous Serous -Wound Margin Distinct, Distinct, Outline Outline Attached Attached -Granulation Amt Medium (34-66%) Small (1-33%) -Granulation Quality Red Red -Slough/Fibrin Yes Yes -Necrosis Amt Medium (34-66%) Large (67-100%) -Necrotic Tissue Type Adherent Slough Adherent Slough -Texture (Candace-wound Skin Appearance) Assessed, Assessed, Scarring Scarring -Moisture (Candace-wound Skin Appearance) Assessed Assessed -Color (Candace-wound Skin Appearance) Assessed Assessed -Temperature (Candaec-wound Skin No Abnormality No Abnormality Appearance) (Pt Warm) (Pt Warm) -Tenderness on Palpation (Candace-wound No No Skin Appearance) -Ulcer Cleansing Rinsed/ Rinsed/ Irrigated with Irrigated with Saline Saline -Foul Odor after Cleansing No -Anesthetic Used 5% Lidocaine 5% Lidocaine Gel Gel - Nurse 2 - General Ulcer CM Notes Start: 11/28/22 08:23 Freq: Status: Active Protocol: Activity Type Activity Date Activity User E-sign Co-sign Detail Recorded Client Recorded Date Recorded By Document 11/28/22 11:23 PL [id number] 11/28/22 11:23 PL Document 12/05/22 08:45 MW [id number] 12/05/22 08:48 MW 11/28/22 12/05/22 11:23 08:45 Wound Center Nurse 2 #1 Chin -Time 08:34 08:45 -Correct Patient Yes Yes -Correct Side, Site, Position Yes Yes -Correct Procedure Yes Yes -Procedure Performed Yes Yes -Type of Procedure Debridement Debridement -Clinical Debridement Subcutaneous Subcutaneous -Tissue Removed Subcutaneous Subcutaneous -Post Debridement (cm) - Length 2.5 2.0 -Post Debridement (cm) - Width 2.2 2.0 -Post Debridement (cm) - Depth 0.5 0.5 -Total Square (Post) (cm) 5.50 4.00 -Area of Debridement (cm) - Length 2.5 2.0 -Area of Debridement (cm) - Width 2.2 2.0 -Total Square (Area) (cm) 5.50 4.00 -Tunneling No No -Undermining/Tunneling No No -Circular Undermining No No -Wound/Ulcer Outcome Not Healed Not Healed -Ulcer Cleansing Rinsed/ Rinsed/ Irrigated with Irrigated with Saline Saline -Foul Odor after Cleansing No No -Bioengineered Tissue No No -Bleeding Controlled with Pressure Pressure -Treatment Response Procedure Procedure Tolerated Well Tolerated Well -Offloading No -Debridement - Subq, 1st 20sq cm Yes Yes Pain Scale: 0-10 Numeric Is Patient Pain Free? Yes Yes - Nurse 3 - General Ulcer D/C NN Start: 11/28/22 08:23 Freq: Status: Active Protocol: Activity Type Activity Date Activity User E-sign Co-sign Detail Recorded Client Recorded Date Recorded By Document 11/28/22 08:49 BMF [id number] 11/28/22 08:49 BMF Document 12/05/22 08:53 BM [id number] 12/05/22 08:54 BMF 11/28/22 12/05/22 08:49 08:53 Wound Care Center Nurse 3 #1 Chin -Ulcer Cleansing Rinsed/ Rinsed/ Irrigated with Irrigated with Saline Saline -Foul Odor after Cleansing No No -Primary Dressing Applied NonAdherent NonAdherent Contact Layer, Contact Layer, Promogran Promogran Ruth Matter -Primary Dressing Covered/Secured with Dry Gauze, Dry Gauze, Secured with Secured with Tape Tape -Promogran 1 -Promogran Ruth Matter 1 Treatment Response Procedure Procedure Tolerated Well Tolerated Well Pain Scale: 0-10 Numeric Is Patient Pain Free? Yes Yes WC - Visit Discharge Discharge Condition Stable Stable Ambulatory Status Ambulatory Ambulatory Transportation Private Auto Private Auto Assessment/Plan Assessment/Plan (1) Head and neck cancer: CODE(S): C76.0 - Malignant neoplasm of head, face and neck (2) Delayed surgical wound healing: CODE(S): T81.89XA - Other complications of procedures, not elsewhere classified, initial encounter QUALIFIERS: Encounter type: initial encounter Qualified Code(s): T81.89XA - Other complications of procedures, not elsewhere classified, initial encounter PLAN: Wash area with antibacterial soap and place Promogran and base cover with Adaptic gauze and paper tape daily dressings Follow-up in 1 week (3) Nonhealing surgical wound: CODE(S): T81.89XA - Other complications of procedures, not elsewhere classified, initial encounter QUALIFIERS: Encounter type: initial encounter Qualified Code(s): T81.89XA - Other complications of procedures, not elsewhere classified, initial encounter (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
[2022-12-12 08:52] VITALS: BP 113/66; PULSE 77; TEMP 36.1; BMI 22.3
--- NOTE | 2022-12-12 11:55 | PN.PCM_ITS ---
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 He received courses of chemotherapy followed by radiation treatments, which were concluded by the end of 2017. He recently underwent oral surgery and had 8 teeth extracted. Two extraction sites have failed to heal. On November 07, 2021, the patient underwent reconstruction of the jaw using bone from his left lower leg. He now has a chronic, non-healing surgical wound in the left sub- mandibular area. Progress of Wound: Continues to improve, finished all antibiotic therapy. We will continue using the Ruth seems to be healing well. New growth on the shallow side filling in deep side still has positive depth Subjective Subjective Patient and daughter pleased with outcomes Objective Data Objective Data Continue with the same dressing changes and depth is improving. We will continue to monitor for infections once a month Vital Signs: Vital Signs Temp Pulse Resp BP O2 Del Method 96.9 F L 77 18 113/66 Room Air 12/12/22 08:52 12/12/22 08:52 11/28/22 08:23 12/12/22 08:52 12/05/22 08:22 Oxygen Delivery Method Room Air Weight: 130 lb Body Mass Index (BMI) 22.3 Physical Exam Narrative ECOG 1 Hard of hearing Const alert, oriented x3 and no apparent distress General Appearance: cooperative and comfortable HEENT normocephalic HEENT Narrative: Reconstruction of the lower face, soft tissue edema Mouth: No thrush Eyes General Eye: normal appearance of both eyes Conjunctiva: conjunctiva normal Sclera: sclera normal Neck no lymphadenopathy and no JVD Neck Narrative: Postoperative changes and flap. Wound is covered with surgical dressing General: tracheostomy present Lymph Lymphatic: no lymphadenopathy noted Chest Chest: symmetrical chest wall rise Resp Auscultation: diminished lung sounds bilateral and diffuse Cardio regular rate and regular rhythm Jugular Venous Distention: Negative for JVD GI soft to palpation, non-tender and non-distended; Negative for hepatosplenomegaly GI Narrative: PEG tube Inspection: GI tube present no CVA tenderness Back/Spine no thoracic nor lumbar tenderness Extremity General Extremity: Negative for clubbing, cyanosis or edema Skin no rashes or lesions noted Neuro oriented x3, CN's II-XII intact bilaterally and moves all extremities Neuro Narrative: Bilateral symmetric wasting of first interosseous muscles. Coordination / Balance: [id number] test normal Speech: speech abnormal Gait (Neuro): normal gait Psych mental status grossly normal, thought process normal, cooperative and affect normal Debridement Note Debridement Note Wound debrided: Left jaw postop nonhealing surgical wound Type of Debridement: Excisional debridement Anesthesia Used: 5% Lidocaine Gel Depth: Down to and including healthy tissue Percentage of wound debrided: 100 Instrument Used: 5mm curette Tissue Removed: Fibrin Severity: Fat Layer Exposed Amount of bleeding with debridement: Moderate Bleeding Controlled with: Compression and gauze Patient tolerated procedure: Patient tolerated procedure well Post-Debridement Measurements and Additional Note: Post-Debridement Measurements/Treatment - Nurse 1 - General Ulcer Assessment Start: 11/28/22 08:23 Freq: Status: Active Protocol: BRANDAN Activity Type Activity Date Activity User E-sign Co-sign Detail Recorded Client Recorded Date Recorded By Document 11/28/22 08:23 [facility] [id number] 11/28/22 08:25 [facility] Document 12/05/22 08:22 [facility] [id number] 12/05/22 08:27 [facility] Document 12/12/22 08:52 [place] [id number] 12/12/22 08:55 [place] 11/28/22 12/05/22 12/12/22 08:23 08:22 08:52 - Today's Visit Information Type of service Follow-up Visit Follow-up Visit Follow-up Visit (Physician/WEEKEND RECEPTIONIST (Physician/WEEKEND RECEPTIONIST (Physician/WEEKEND RECEPTIONIST ) ) ) Arrival Mode Ambulatory Ambulatory Ambulatory Transfer Assistance None None Accompanied by stefanie Patient Identification Verified (Name & Yes Yes Yes ) Patient Requires Transmission-Based No No No Precautions Safety Precautions NA Height and Weight Body Mass Index (BMI) 22.3 22.3 22.3 BMI Classification Normal Normal Normal Vital Signs Temperature (97.8 F-99.1 F) 96.7 F L 97.2 F L 96.9 F L Temperature Source Temporal Temporal Temporal Pulse Rate (60-100) 77 70 77 Pulse Location Monitor Monitor Monitor Respiratory Rate (12-18) 18 Respiratory rate source Observation Observation Oxygen Delivery Method Room Air Room Air Blood Pressure (90/60-120/80) 115/56 L 113/62 113/66 Blood Pressure Mean (mm Hg) 75 79 81 Source Monitor Monitor Monitor Position Sitting Sitting Blood Pressure Location Left Arm Left Arm History Since Last Visit- (Skip if this is Patient's initial visit) Have you changed medications since your No No No last visit? Any new allergies or adverse reactions No No No Had a fall/change in ADL's that may No No No increase risk of falls Signs or symptoms of abuse and/or No No No neglect since last visit Have you been in the hospital since your No No No last visit? Has dressing in place as prescribed Yes Yes Yes Has compression in place as prescribed N/A N/A N/A Has offloadiing in place as prescribed N/A N/A N/A Experienced any changes in pain level or No No No management Left Footwear Regular Shoe Regular Shoe Regular Shoe Right Footwear Regular Shoe Regular Shoe Regular Shoe Pain Scale: 0-10 Numeric Is Patient Pain Free? Yes Yes Yes WC - Nurse 1 - General Ulcer Measurement Start: 11/28/22 08:23 Freq: Status: Active Protocol: Activity Type Activity Date Activity User E-sign Co-sign Detail Recorded Client Recorded Date Recorded By Document 11/28/22 08:23 [facility] [id number] 11/28/22 08:25 [facility] Document 12/05/22 08:22 [facility] [id number] 12/05/22 08:27 [facility] Document 12/12/22 08:52 [place] [id number] 12/12/22 08:55 [place] 11/28/22 12/05/22 12/12/22 08:23 08:22 08:52 Wound Center Nurse 1 #1 Chin -Combined with other wound No No No -Current Size (cm) - Length 3 2.4 2.5 -Current Size (cm) - Width 0.6 2.2 2 -Current Size (cm) - Depth 0.3 0.4 0.2 -Total Square Cm 1.8 5.28 5.0 -Date of Last Picture (Recall this 11/28/22 12/05/22 field) -Photo Taken Yes Yes No -Epithelialization None Present None Present -Tunneling No No No -Undermining/Tunneling No No No -Circular Undermining No No No -Change in Wound Grade/Stage No -Exudate Amt Medium Small Medium -Exudate Type Serosanguineous Serous Serosanguineous -Wound Margin Distinct, Distinct, Distinct, Outline Outline Outline Attached Attached Attached -Granulation Amt Medium (34-66%) Small (1-33%) Small (1-33%) -Granulation Quality Red Red N/A -Slough/Fibrin Yes Yes Yes -Necrosis Amt Medium (34-66%) Large (67-100%) Large (67-100%) -Necrotic Tissue Type Adherent Slough Adherent Slough Adherent Slough -Structure Exposed N/A -Texture (Candace-wound Skin Appearance) Assessed, Assessed, Assessed, Scarring Scarring Scarring -Moisture (Candace-wound Skin Appearance) Assessed Assessed No Abnormality, Assessed -Color (Candace-wound Skin Appearance) Assessed Assessed No Abnormality, Assessed -Temperature (Candace-wound Skin No Abnormality No Abnormality No Abnormality Appearance) (Pt Warm) (Pt Warm) (Pt Warm) -Tenderness on Palpation (Candace-wound No No No Skin Appearance) -Ulcer Cleansing Rinsed/ Rinsed/ Irrigated with Irrigated with Saline Saline -Foul Odor after Cleansing No No -Anesthetic Used 5% Lidocaine 5% Lidocaine 4% Lidocaine Gel Gel Solution WC - Nurse 2 - General Ulcer CM Notes Start: 11/28/22 08:23 Freq: Status: Active Protocol: Activity Type Activity Date Activity User E-sign Co-sign Detail Recorded Client Recorded Date Recorded By Document 11/28/22 11:23 PL [id number] 11/28/22 11:23 PL Document 12/05/22 08:45 MW [id number] 12/05/22 08:48 MW Document 12/12/22 08:56 MW [id number] 12/12/22 09:00 MW 11/28/22 12/05/22 12/12/22 11:23 08:45 08:56 Wound Center Nurse 2 #1 Chin -Time 08:34 08:45 08:57 -Correct Patient Yes Yes Yes -Correct Side, Site, Position Yes Yes Yes -Correct Procedure Yes Yes Yes -Procedure Performed Yes Yes Yes -Type of Procedure Debridement Debridement Debridement -Clinical Debridement Subcutaneous Subcutaneous Subcutaneous -Tissue Removed Subcutaneous Subcutaneous Subcutaneous -Post Debridement (cm) - Length 2.5 2.0 2.5 -Post Debridement (cm) - Width 2.2 2.0 2.5 -Post Debridement (cm) - Depth 0.5 0.5 0.5 -Total Square (Post) (cm) 5.50 4.00 6.25 -Area of Debridement (cm) - Length 2.5 2.0 2.5 -Area of Debridement (cm) - Width 2.2 2.0 2.5 -Total Square (Area) (cm) 5.50 4.00 6.25 -Tunneling No No No -Undermining/Tunneling No No No -Circular Undermining No No No -Wound/Ulcer Outcome Not Healed Not Healed Not Healed -Ulcer Cleansing Rinsed/ Rinsed/ Rinsed/ Irrigated with Irrigated with Irrigated with Saline Saline Saline -Foul Odor after Cleansing No No No -Bioengineered Tissue No No No -Bleeding Controlled with Pressure Pressure Pressure -Treatment Response Procedure Procedure Procedure Tolerated Well Tolerated Well Tolerated Well -Offloading No No -Debridement - Subq, 1st 20sq cm Yes Yes Yes Pain Scale: 0-10 Numeric Is Patient Pain Free? Yes Yes Yes - Nurse 3 - General Ulcer D/C NN Start: 11/28/22 08:23 Freq: Status: Active Protocol: Activity Type Activity Date Activity User E-sign Co-sign Detail Recorded Client Recorded Date Recorded By Document 11/28/22 08:49 [facility] [id number] 11/28/22 08:49 [facility] Document 12/05/22 08:53 [facility] [id number] 12/05/22 08:54 [facility] Document 12/12/22 09:20 [place] [id number] 12/12/22 09:21 [place] 11/28/22 12/05/22 12/12/22 08:49 08:53 09:20 Wound Care Center Nurse 3 #1 Chin -Ulcer Cleansing Rinsed/ Rinsed/ Rinsed/ Irrigated with Irrigated with Irrigated with Saline Saline Saline -Foul Odor after Cleansing No No No -Negative Pressure Wound Therapy N/A -Primary Dressing Applied NonAdherent NonAdherent NonAdherent Contact Layer, Contact Layer, Contact Layer Promogran Promogran Ruth Matter -Other Dressing free samples of pomegran x2 -Primary Dressing Covered/Secured with Dry Gauze, Dry Gauze, Dry Gauze, Secured with Secured with Secured with Tape Tape Tape -Promogran 1 -Promogran Ruth Matter 1 Treatment Response Procedure Procedure Tolerated Well Tolerated Well Pain Scale: 0-10 Numeric Is Patient Pain Free? Yes Yes Yes - Visit Discharge Discharge Condition Stable Stable Stable Ambulatory Status Ambulatory Ambulatory Ambulatory Transportation Private Auto Private Auto Private Auto Medication Reconcilliation completed & Yes provided to patient/care provider Clinical Summary of Care Provided Yes Assessment/Plan Assessment/Plan (1) Head and neck cancer: CODE(S): C76.0 - Malignant neoplasm of head, face and neck (2) Delayed surgical wound healing: CODE(S): T81.89XA - Other complications of procedures, not elsewhere classified, initial encounter QUALIFIERS: Encounter type: initial encounter Qualified Code(s): T81.89XA - Other complications of procedures, not elsewhere classified, initial encounter PLAN: Wash area with antibacterial soap and place Promogran and base cover with Adaptic gauze and paper tape daily dressings Follow-up in 2week (3) Nonhealing surgical wound: CODE(S): T81.89XA - Other complications of procedures, not elsewhere classified, initial encounter QUALIFIERS: Encounter type: initial encounter Qualified Code(s): T81.89XA - Other complications of procedures, not elsewhere classified, initial encounter (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
== END 2022-12-21 23:59 | disposition home or self-care (01) ==
LOC: WC 08:30
PROVIDERS: PCP Nurse Practitioner; Referring Provider Nurse Practitioner; Visit Provider Nurse Practitioner
DX: T81.89XA Other complications of procedures, not elsewhere classified, initial encounter (principal); Z93.0 Tracheostomy status; C76.0 Malignant neoplasm of head, face and neck; L59.8 Other specified disorders of the skin and subcutaneous tissue related to radiation; Y84.2 Radiological procedure and radiotherapy as the cause of abnormal reaction of the patient, or of later complication, without mention of misadventure at the time of the procedure; Z85.89 Personal history of malignant neoplasm of other organs and systems; Z92.21 Personal history of antineoplastic chemotherapy; Z92.3 Personal history of irradiation
CPT/HCPCS: 11042

== ENCOUNTER 2023-01-16 08:30 | Outpatient (RCR) | payer OTHER, SELFPAY ==
[2022-01-31 09:09] VITALS: BMI 22.6
[2022-12-22 01:22] VITALS: BP 113/66; PULSE 77; RESP 18; TEMP 36.1; BMI 22.3
[2022-12-26 08:31] VITALS: BP 129/61; PULSE 75; RESP 20; TEMP 36.1; BMI 22.3
--- NOTE | 2022-12-26 08:47 | PCM.WC.PN ---
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 He received courses of chemotherapy followed by radiation treatments, which were concluded by the end of 2017. He recently underwent oral surgery and had 8 teeth extracted. Two extraction sites have failed to heal. On November 07, 2021, the patient underwent reconstruction of the jaw using bone from his left lower leg. 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 Progress of Wound: For the last 2 weeks he has been using Ruth on his wound base and it showing more shallow and seems to be filling in better. Measurements for the open area are much smaller depth is about the same in the deep area Subjective Subjective Daughter is very pleased with the outcomes she noticed a big difference this last 2 weeks Objective Data Objective Data Measurements are better patient is doing better on the Ruth we will leave him on that for now Vital Signs: Vital Signs Temp Pulse Resp BP 97.0 F L 75 20 H 129/61 H 12/26/22 08:31 12/26/22 08:31 12/26/22 08:31 12/26/22 08:31 Weight: 130 lb Body Mass Index (BMI) 22.3 Lab / Micro Data Attestation: I reviewed the patient's lab results. Physical Exam Narrative ECOG 1 Hard of hearing Const alert, oriented x3 and no apparent distress General Appearance: cooperative and comfortable HEENT normocephalic HEENT Narrative: Reconstruction of the lower face, soft tissue edema Mouth: No thrush Eyes General Eye: normal appearance of both eyes Conjunctiva: conjunctiva normal Sclera: sclera normal Neck no lymphadenopathy and no JVD Neck Narrative: Postoperative changes and flap. Wound is covered with surgical dressing General: tracheostomy present Lymph Lymphatic: no lymphadenopathy noted Chest Chest: symmetrical chest wall rise Resp Auscultation: diminished lung sounds bilateral and diffuse Cardio regular rate and regular rhythm Jugular Venous Distention: Negative for JVD GI soft to palpation, non-tender and non-distended; Negative for hepatosplenomegaly GI Narrative: PEG tube Inspection: GI tube present no CVA tenderness Back/Spine no thoracic nor lumbar tenderness Extremity General Extremity: Negative for clubbing, cyanosis or edema Skin no rashes or lesions noted Neuro oriented x3, CN's II-XII intact bilaterally and moves all extremities Neuro Narrative: Bilateral symmetric wasting of first interosseous muscles. Coordination / Balance: [id number]-[id number] test normal Speech: speech abnormal Gait (Neuro): normal gait Psych mental status grossly normal, thought process normal, cooperative and affect normal Debridement Note Debridement Note Wound debrided: Left jaw postoperative nonhealing wound from cancer Type of Debridement: Excisional debridement Anesthesia Used: 5% Lidocaine Gel Depth: Down to and including healthy tissue Percentage of wound debrided: 100 Instrument Used: 5mm curette Tissue Removed: Fibrin and devitalized tissue Severity: Fat Layer Exposed Amount of bleeding with debridement: Mild Bleeding Controlled with: Compression and gauze Patient tolerated procedure: Patient tolerated procedure well Post-Debridement Measurements and Additional Note: Post-Debridement Measurements/Treatment WC - Nurse 1 - General Ulcer Assessment Start: 12/26/22 08:31 Freq: Status: Active Protocol: BRANDAN Activity Type Activity Date Activity User E-sign Co-sign Detail Recorded Client Recorded Date Recorded By Document 12/26/22 08:31 PL [id number] 12/26/22 08:39 PL 12/26/22 08:31 WC - Today's Visit Information Type of service Follow-up Visit (Physician/UTILIZATION COORDINATOR ) Arrival Mode Ambulatory Transfer Assistance None Patient Identification Verified (Name & Yes ) Patient Requires Transmission-Based No Precautions Safety Precautions NA Height and Weight Body Mass Index (BMI) 22.3 BMI Classification Normal Vital Signs Temperature (97.8 F-99.1 F) 97.0 F L Temperature Source Temporal Pulse Rate (60-100) 75 Respiratory Rate (12-18) 20 H Blood Pressure (90/60-120/80) 129/61 H Blood Pressure Mean (mm Hg) 83 History Since Last Visit- (Skip if this is Patient's initial visit) Have you changed medications since your No last visit? Any new allergies or adverse reactions No Had a fall/change in ADL's that may No increase risk of falls Signs or symptoms of abuse and/or No neglect since last visit Have you been in the hospital since your No last visit? Has dressing in place as prescribed Yes Has compression in place as prescribed N/A Has offloadiing in place as prescribed N/A Experienced any changes in pain level or No management Pain Scale: 0-10 Numeric Is Patient Pain Free? Yes - Nurse 1 - General Ulcer Measurement Start: 12/26/22 08:31 Freq: Status: Active Protocol: Activity Type Activity Date Activity User E-sign Co-sign Detail Recorded Client Recorded Date Recorded By Document 12/26/22 08:31 PL [id number] 12/26/22 08:39 PL 12/26/22 08:31 Wound Center Nurse 1 #1 Chin -Combined with other wound No -Current Size (cm) - Length 2.0 -Current Size (cm) - Width 3.0 -Current Size (cm) - Depth 0.2 -Total Square Cm 6.00 -Photo Taken No -Epithelialization Medium 34-66% -Exudate Amt Medium -Exudate Type Serosanguineous -Granulation Amt Medium (34-66%) -Granulation Quality [place] -Slough/Fibrin Yes -Necrosis Amt Medium (34-66%) -Necrotic Tissue Type Adherent Slough -Texture (Candace-wound Skin Appearance) No Abnormality -Moisture (Candace-wound Skin Appearance) No Abnormality -Color (Candace-wound Skin Appearance) No Abnormality -Ulcer Cleansing Rinsed/ Irrigated with Saline -Foul Odor after Cleansing No -Anesthetic Used 5% Lidocaine Gel WC - Nurse 2 - General Ulcer CM Notes Start: 12/26/22 08:31 Freq: Status: Active Protocol: Activity Type Activity Date Activity User E-sign Co-sign Detail Recorded Client Recorded Date Recorded By Document 12/26/22 08:43 MW [id number] 12/26/22 08:45 MW 12/26/22 08:43 Wound Center Nurse 2 -Time 08:44 -Correct Patient Yes -Correct Side, Site, Position Yes -Correct Procedure Yes -Procedure Performed Yes -Type of Procedure Debridement -Clinical Debridement Subcutaneous -Tissue Removed Subcutaneous -Post Debridement (cm) - Length 2.0 -Post Debridement (cm) - Width 1.8 -Post Debridement (cm) - Depth 0.5 -Total Square (Post) (cm) 3.60 -Area of Debridement (cm) - Length 2.0 -Area of Debridement (cm) - Width 1.8 -Total Square (Area) (cm) 3.60 -Tunneling No -Undermining/Tunneling No -Circular Undermining No -Wound/Ulcer Outcome Not Healed -Ulcer Cleansing Rinsed/ Irrigated with Saline -Foul Odor after Cleansing No -Bioengineered Tissue No -Bleeding Controlled with Pressure -Treatment Response Procedure Tolerated Well -Offloading No -Debridement - Subq, 1st 20sq cm Yes Pain Scale: 0-10 Numeric Is Patient Pain Free? Yes Assessment/Plan Assessment/Plan (1) Head and neck cancer: CODE(S): C76.0 - Malignant neoplasm of head, face and neck (2) Delayed surgical wound healing: CODE(S): T81.89XA - Other complications of procedures, not elsewhere classified, initial encounter QUALIFIERS: Encounter type: initial encounter Qualified Code(s): T81.89XA - Other complications of procedures, not elsewhere classified, initial encounter PLAN: Wash area with antibacterial soap and place Ruth and base cover with Adaptic gauze and paper tape daily dressings Follow-up in 1 week (3) Nonhealing surgical wound: CODE(S): T81.89XA - Other complications of procedures, not elsewhere classified, initial encounter QUALIFIERS: Encounter type: initial encounter Qualified Code(s): T81.89XA - Other complications of procedures, not elsewhere classified, initial encounter (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
[2023-01-02 08:29] VITALS: BP 124/57; PULSE 75; RESP 16; TEMP 36.3; BMI 22.3
--- NOTE | 2023-01-02 12:05 | PCM.WC.PN ---
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 He received courses of chemotherapy followed by radiation treatments, which were concluded by the end of 2017. He recently underwent oral surgery and had 8 teeth extracted. Two extraction sites have failed to heal. On November 07, 2021, the patient underwent reconstruction of the jaw using bone from his left lower leg. 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 Progress of Wound: We have been using Ruth on his wound base and it showing more shallow and seems to be filling in better. Measurements for the open area are much smaller depth is about the same in the deep area Subjective Subjective Daughter and he are pleased with outcomes seems to be more shallow clean Objective Data Objective Data We will continue using the Ruth dressing reculture him in about a month certain areas of the jaw is starting to blend in with his face. Vital Signs: Vital Signs Temp Pulse Resp BP O2 Del Method 97.4 F L 75 16 124/57 H Trach Collar 01/02/23 08:29 01/02/23 08:29 01/02/23 08:29 01/02/23 08:29 01/02/23 08:29 Oxygen Delivery Method Trach Collar Weight: 130 lb Body Mass Index (BMI) 22.3 Lab / Micro Data Attestation: I reviewed the patient's lab results. Physical Exam Narrative ECOG 1 Hard of hearing Const alert, oriented x3 and no apparent distress General Appearance: cooperative and comfortable HEENT normocephalic HEENT Narrative: Reconstruction of the lower face, soft tissue edema Mouth: No thrush Eyes General Eye: normal appearance of both eyes Conjunctiva: conjunctiva normal Sclera: sclera normal Neck no lymphadenopathy and no JVD Neck Narrative: Postoperative changes and flap. Wound is covered with surgical dressing General: tracheostomy present Lymph Lymphatic: no lymphadenopathy noted Chest Chest: symmetrical chest wall rise Resp Auscultation: diminished lung sounds bilateral and diffuse Cardio regular rate and regular rhythm Jugular Venous Distention: Negative for JVD GI soft to palpation, non-tender and non-distended; Negative for hepatosplenomegaly GI Narrative: PEG tube Inspection: GI tube present no CVA tenderness Back/Spine no thoracic nor lumbar tenderness Extremity General Extremity: Negative for clubbing, cyanosis or edema Skin no rashes or lesions noted Neuro oriented x3, CN's II-XII intact bilaterally and moves all extremities Neuro Narrative: Bilateral symmetric wasting of first interosseous muscles. Coordination / Balance: [id number]-vn-totv test normal Speech: speech abnormal Gait (Neuro): normal gait Psych mental status grossly normal, thought process normal, cooperative and affect normal Debridement Note Debridement Note Wound debrided: Left jaw postoperative nonhealing Type of Debridement: Excisional debridement Anesthesia Used: 5% Lidocaine Gel Depth: Down to and including healthy tissue and in the subcutaneous layer Instrument Used: 5mm curette Tissue Removed: Fibrin Severity: Fat Layer Exposed Amount of bleeding with debridement: Mild Bleeding Controlled with: Compression and gauze Patient tolerated procedure: Patient tolerated procedure well Post-Debridement Measurements and Additional Note: Post-Debridement Measurements/Treatment - Nurse 1 - General Ulcer Assessment Start: 12/26/22 08:31 Freq: Status: Active Protocol: BRANDAN Activity Type Activity Date Activity User E-sign Co-sign Detail Recorded Client Recorded Date Recorded By Document 12/26/22 08:31 PL [id number] 12/26/22 08:39 PL Document 01/02/23 08:29 JF [id number] 01/02/23 08:33 JF 12/26/22 01/02/23 08:31 08:29 - Today's Visit Information Type of service Follow-up Visit Follow-up Visit (Physician/REAL ESTATE SALES AGENT (Physician/REAL ESTATE SALES AGENT ) ) Arrival Mode Ambulatory Ambulatory Transfer Assistance None Patient Identification Verified (Name & Yes Yes ) Patient Requires Transmission-Based No No Precautions Safety Precautions NA Height and Weight Body Mass Index (BMI) 22.3 22.3 BMI Classification Normal Normal Vital Signs Temperature (97.8 F-99.1 F) 97.0 F L 97.4 F L Temperature Source Temporal Temporal Pulse Rate (60-100) 75 75 Pulse Location Monitor Respiratory Rate (12-18) 20 H 16 Respiratory rate source Observation Oxygen Delivery Method Trach Collar Blood Pressure (90/60-120/80) 129/61 H 124/57 H Blood Pressure Mean (mm Hg) 83 79 Source Monitor Position Semi-Fowlers Blood Pressure Location Left Arm History Since Last Visit- (Skip if this is Patient's initial visit) Have you changed medications since your No No last visit? Any new allergies or adverse reactions No No Had a fall/change in ADL's that may No No increase risk of falls Signs or symptoms of abuse and/or No No neglect since last visit Have you been in the hospital since your No No last visit? Has dressing in place as prescribed Yes Yes Has compression in place as prescribed N/A N/A Has offloadiing in place as prescribed N/A N/A Experienced any changes in pain level or No No management Left Footwear Slipper Right Footwear Regular Shoe Pain Scale: 0-10 Numeric Is Patient Pain Free? Yes Yes - Nurse 1 - General Ulcer Measurement Start: 12/26/22 08:31 Freq: Status: Active Protocol: Activity Type Activity Date Activity User E-sign Co-sign Detail Recorded Client Recorded Date Recorded By Document 12/26/22 08:31 PL [id number] 12/26/22 08:39 PL Document 01/02/23 08:29 JF [id number] 01/02/23 08:33 JF 12/26/22 01/02/23 08:31 08:29 Wound Center Nurse 1 #1 Chin -Combined with other wound No No -Current Size (cm) - Length 2.0 3.0 -Current Size (cm) - Width 3.0 2.8 -Current Size (cm) - Depth 0.2 0.4 -Total Square Cm 6.00 8.40 -Photo Taken No Yes -Epithelialization Medium 34-66% None Present -Undermining/Tunneling No -Circular Undermining No -Exudate Amt Medium Medium -Exudate Type Serosanguineous Serosanguineous -Wound Margin Flat & Intact -Granulation Amt Medium (34-66%) Medium (34-66%) -Granulation Quality [place] -Slough/Fibrin Yes Yes -Necrosis Amt Medium (34-66%) Small (1-33%) -Necrotic Tissue Type Adherent Slough Adherent Slough -Structure Exposed N/A -Texture (Candace-wound Skin Appearance) No Abnormality Assessed -Moisture (Candace-wound Skin Appearance) No Abnormality Assessed,Dry/ Scaly -Color (Candace-wound Skin Appearance) No Abnormality Assessed -Temperature (Candace-wound Skin No Abnormality Appearance) (Pt Warm) -Tenderness on Palpation (Candace-wound No Skin Appearance) -Ulcer Cleansing Rinsed/ Rinsed/ Irrigated with Irrigated with Saline Saline -Foul Odor after Cleansing No -Anesthetic Used 5% Lidocaine 5% Lidocaine Gel Gel Lower Limb Edema Present NA WC - Nurse 2 - General Ulcer CM Notes Start: 12/26/22 08:31 Freq: Status: Active Protocol: Activity Type Activity Date Activity User E-sign Co-sign Detail Recorded Client Recorded Date Recorded By Document 12/26/22 08:43 MW [id number] 12/26/22 08:45 MW Document 01/02/23 08:47 MW [id number] 01/02/23 08:50 MW 12/26/22 01/02/23 08:43 08:47 Wound Center Nurse 2 #1 Chin -Time 08:44 08:48 -Correct Patient Yes Yes -Correct Side, Site, Position Yes Yes -Correct Procedure Yes Yes -Procedure Performed Yes Yes -Type of Procedure Debridement Debridement -Clinical Debridement Subcutaneous Subcutaneous -Tissue Removed Subcutaneous Subcutaneous -Post Debridement (cm) - Length 2.0 3.0 -Post Debridement (cm) - Width 1.8 2.0 -Post Debridement (cm) - Depth 0.5 0.4 -Total Square (Post) (cm) 3.60 6.00 -Area of Debridement (cm) - Length 2.0 3.0 -Area of Debridement (cm) - Width 1.8 2.0 -Total Square (Area) (cm) 3.60 6.00 -Tunneling No No -Undermining/Tunneling No No -Circular Undermining No No -Wound/Ulcer Outcome Not Healed Not Healed -Ulcer Cleansing Rinsed/ Rinsed/ Irrigated with Irrigated with Saline Saline -Foul Odor after Cleansing No No -Bioengineered Tissue No No -Bleeding Controlled with Pressure Pressure -Treatment Response Procedure Procedure Tolerated Well Tolerated Well -Offloading No No -Debridement - Subq, 1st 20sq cm Yes Yes Pain Scale: 0-10 Numeric Is Patient Pain Free? Yes Yes - Nurse 3 - General Ulcer D/C NN Start: 12/26/22 08:31 Freq: Status: Active Protocol: Activity Type Activity Date Activity User E-sign Co-sign Detail Recorded Client Recorded Date Recorded By Document 12/26/22 08:49 MW [id number] 12/26/22 08:49 MW Document 01/02/23 08:51 MW [id number] 01/02/23 08:51 MW 12/26/22 01/02/23 08:49 08:51 Wound Care Center Nurse 3 #1 Chin -Ulcer Cleansing Rinsed/ Rinsed/ Irrigated with Irrigated with Saline Saline -Foul Odor after Cleansing No No -Negative Pressure Wound Therapy N/A N/A -Primary Dressing Applied NonAdherent NonAdherent Contact Layer, Contact Layer, Promogran Promogran Ruth Matter Ruth Matter -Primary Dressing Covered/Secured with Dry Gauze, Dry Gauze, Secured with Secured with Tape Tape -Promogran Ruth Matter 1 1 Treatment Response Procedure Procedure Tolerated Well Tolerated Well Pain Scale: 0-10 Numeric Is Patient Pain Free? Yes Yes Teaching: Wound Center Dressing Your Wound -Person Taught Patient Patient,Family -Teaching Method Discussion, Discussion, Demonstration Demonstration -Response to teaching Verbalize Verbalize understanding understanding WC - Visit Discharge Discharge Condition Stable Stable Ambulatory Status Ambulatory Ambulatory Transportation Private Auto Private Auto Accompanied by daughter daughter Medication Reconcilliation completed & No No provided to patient/care provider Clinical Summary of Care Provided Yes Yes Assessment/Plan Assessment/Plan (1) Head and neck cancer: CODE(S): C76.0 - Malignant neoplasm of head, face and neck (2) Delayed surgical wound healing: CODE(S): T81.89XA - Other complications of procedures, not elsewhere classified, initial encounter QUALIFIERS: Encounter type: initial encounter Qualified Code(s): T81.89XA - Other complications of procedures, not elsewhere classified, initial encounter PLAN: Wash area with antibacterial soap and place Ruth and base cover with Adaptic gauze and paper tape daily dressings Follow-up in 1 week (3) Nonhealing surgical wound: CODE(S): T81.89XA - Other complications of procedures, not elsewhere classified, initial encounter QUALIFIERS: Encounter type: initial encounter Qualified Code(s): T81.89XA - Other complications of procedures, not elsewhere classified, initial encounter (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
[2023-01-09 08:38] VITALS: BP 124/59; PULSE 71; RESP 18; TEMP 36.1; BMI 22.3
--- NOTE | 2023-01-09 09:32 | PCM.WC.PN ---
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 He received courses of chemotherapy followed by radiation treatments, which were concluded by the end of 2017. He recently underwent oral surgery and had 8 teeth extracted. Two extraction sites have failed to heal. On November 07, 2021, the patient underwent reconstruction of the jaw using bone from his left lower leg. 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 Progress of Wound: We have been using Ruth on his wound base and it showing more shallow and seems to be filling in better. Measurements for the open area are smaller depth is about the same in the deep area. We will reculture, daughter felt there was more slough this week. Subjective Subjective Patient is happy with results Objective Data Objective Data Wound Tabriz easily bleeds easily the right side of the wound is becoming more shallow and filling and the left sides the deeper side and it still about the same and depth. Vital Signs: Vital Signs Temp Pulse Resp BP O2 Del Method 97 F L 71 18 124/59 H Trach Collar 01/09/23 08:38 01/09/23 08:38 01/09/23 08:38 01/09/23 08:38 01/02/23 08:29 Oxygen Delivery Method Trach Collar Weight: 130 lb Body Mass Index (BMI) 22.3 Physical Exam Narrative ECOG 1 Hard of hearing Const alert, oriented x3 and no apparent distress General Appearance: cooperative and comfortable HEENT normocephalic HEENT Narrative: Reconstruction of the lower face, soft tissue edema Mouth: No thrush Eyes General Eye: normal appearance of both eyes Conjunctiva: conjunctiva normal Sclera: sclera normal Neck no lymphadenopathy and no JVD Neck Narrative: Postoperative changes and flap. Wound is covered with surgical dressing General: tracheostomy present Lymph Lymphatic: no lymphadenopathy noted Chest Chest: symmetrical chest wall rise Resp Auscultation: diminished lung sounds bilateral and diffuse Cardio regular rate and regular rhythm Jugular Venous Distention: Negative for JVD GI soft to palpation, non-tender and non-distended; Negative for hepatosplenomegaly GI Narrative: PEG tube Inspection: GI tube present no CVA tenderness Back/Spine no thoracic nor lumbar tenderness Extremity General Extremity: Negative for clubbing, cyanosis or edema Skin no rashes or lesions noted Neuro oriented x3, CN's II-XII intact bilaterally and moves all extremities Neuro Narrative: Bilateral symmetric wasting of first interosseous muscles. Coordination / Balance: sonius-jo-oyhb test normal Speech: speech abnormal Gait (Neuro): normal gait Psych mental status grossly normal, thought process normal, cooperative and affect normal Debridement Note Debridement Note Wound debrided: Left jaw postsurgery nonhealing open wound Type of Debridement: Excisional debridement Anesthesia Used: 5% Lidocaine Gel Depth: Down to and including healthy tissue and in the subcutaneous layer Percentage of wound debrided: 100 Instrument Used: 5mm curette Tissue Removed: Fibrin and slough Severity: Fat Layer Exposed Amount of bleeding with debridement: Mild Bleeding Controlled with: Compression and gauze Patient tolerated procedure: Patient tolerated procedure well Post-Debridement Measurements and Additional Note: Post-Debridement Measurements/Treatment - Nurse 1 - General Ulcer Assessment Start: 12/26/22 08:31 Freq: Status: Active Protocol: BRANDAN Activity Type Activity Date Activity User E-sign Co-sign Detail Recorded Client Recorded Date Recorded By Document 12/26/22 08:31 PL [id number] 12/26/22 08:39 PL Document 01/02/23 08:29 JF [id number] 01/02/23 08:33 JF Document 01/09/23 08:38 RB [id number] 01/09/23 08:47 RB 12/26/22 01/02/23 01/09/23 08:31 08:29 08:38 - Today's Visit Information Type of service Follow-up Visit Follow-up Visit Follow-up Visit (Physician/REGISTRAR MUSEUM (Physician/REGISTRAR MUSEUM (Physician/REGISTRAR MUSEUM ) ) ) Arrival Mode Ambulatory Ambulatory Ambulatory Transfer Assistance None None Patient Identification Verified (Name & Yes Yes Yes ) Patient Requires Transmission-Based No No No Precautions Safety Precautions NA Height and Weight Body Mass Index (BMI) 22.3 22.3 22.3 BMI Classification Normal Normal Normal Vital Signs Temperature (97.8 F-99.1 F) 97.0 F L 97.4 F L 97 F L Temperature Source Temporal Temporal Temporal Pulse Rate (60-100) 75 75 71 Pulse Location Monitor Monitor Respiratory Rate (12-18) 20 H 16 18 Respiratory rate source Observation Observation Oxygen Delivery Method Trach Collar Blood Pressure (90/60-120/80) 129/61 H 124/57 H 124/59 H Blood Pressure Mean (mm Hg) 83 79 80 Source Monitor Monitor Position Semi-Fowlers Semi-Fowlers Blood Pressure Location Left Arm Left Arm History Since Last Visit- (Skip if this is Patient's initial visit) Have you changed medications since your No No No last visit? Any new allergies or adverse reactions No No No Had a fall/change in ADL's that may No No No increase risk of falls Signs or symptoms of abuse and/or No No No neglect since last visit Have you been in the hospital since your No No No last visit? Has dressing in place as prescribed Yes Yes Yes Has compression in place as prescribed N/A N/A No Has offloadiing in place as prescribed N/A N/A No Experienced any changes in pain level or No No No management Left Footwear Slipper Right Footwear Regular Shoe Pain Scale: 0-10 Numeric Is Patient Pain Free? Yes Yes Yes WC - Nurse 1 - General Ulcer Measurement Start: 12/26/22 08:31 Freq: Status: Active Protocol: Activity Type Activity Date Activity User E-sign Co-sign Detail Recorded Client Recorded Date Recorded By Document 12/26/22 08:31 PL [id number] 12/26/22 08:39 PL Document 01/02/23 08:29 JF [id number] 01/02/23 08:33 JF Document 01/09/23 08:38 RB [id number] 01/09/23 08:47 RB 12/26/22 01/02/23 01/09/23 08:31 08:29 08:38 Wound Center Nurse 1 #1 Chin -Combined with other wound No No No -Current Size (cm) - Length 2.0 3.0 2 -Current Size (cm) - Width 3.0 2.8 2.4 -Current Size (cm) - Depth 0.2 0.4 0.4 -Total Square Cm 6.00 8.40 4.8 -Photo Taken No Yes Yes -Epithelialization Medium 34-66% None Present -Tunneling No -Undermining/Tunneling No No -Circular Undermining No No -Exudate Amt Medium Medium Large -Exudate Type Serosanguineous Serosanguineous Serosanguineous -Wound Margin Flat & Intact Thickened & Rolled Under -Granulation Amt Medium (34-66%) Medium (34-66%) Medium (34-66%) -Granulation Quality Anthem Anthem Anthem -Slough/Fibrin Yes Yes Yes -Necrosis Amt Medium (34-66%) Small (1-33%) Medium (34-66%) -Necrotic Tissue Type Adherent Slough Adherent Slough Adherent Slough -Structure Exposed N/A N/A -Texture (Candace-wound Skin Appearance) No Abnormality Assessed Assessed -Moisture (Candace-wound Skin Appearance) No Abnormality Assessed,Dry/ Assessed Scaly -Color (Candace-wound Skin Appearance) No Abnormality Assessed Assessed -Temperature (Candace-wound Skin No Abnormality No Abnormality Appearance) (Pt Warm) (Pt Warm) -Tenderness on Palpation (Candace-wound No No Skin Appearance) -Ulcer Cleansing Rinsed/ Rinsed/ Wound Cleanser Irrigated with Irrigated with Saline Saline -Foul Odor after Cleansing No No -Anesthetic Used 5% Lidocaine 5% Lidocaine 5% Lidocaine Gel Gel Gel Lower Limb Edema Present NA WC - Nurse 2 - General Ulcer CM Notes Start: 12/26/22 08:31 Freq: Status: Active Protocol: Activity Type Activity Date Activity User E-sign Co-sign Detail Recorded Client Recorded Date Recorded By Document 12/26/22 08:43 MW [id number] 12/26/22 08:45 MW Document 01/02/23 08:[id number] 01/02/23 08:50 MW Document 01/09/23 08:59 MW [id number] 01/09/23 09:01 MW 12/26/22 01/02/23 01/09/23 08:43 08:47 08:59 Wound Center Nurse 2 #1 Chin -Time 08:44 08:48 09:00 -Correct Patient Yes Yes Yes -Correct Side, Site, Position Yes Yes Yes -Correct Procedure Yes Yes Yes -Procedure Performed Yes Yes Yes -Type of Procedure Debridement Debridement Debridement -Clinical Debridement Subcutaneous Subcutaneous Subcutaneous -Tissue Removed Subcutaneous Subcutaneous Subcutaneous -Post Debridement (cm) - Length 2.0 3.0 2.8 -Post Debridement (cm) - Width 1.8 2.0 2.4 -Post Debridement (cm) - Depth 0.5 0.4 0.5 -Total Square (Post) (cm) 3.60 6.00 6.72 -Area of Debridement (cm) - Length 2.0 3.0 2.8 -Area of Debridement (cm) - Width 1.8 2.0 2.4 -Total Square (Area) (cm) 3.60 6.00 6.72 -Tunneling No No No -Undermining/Tunneling No No No -Circular Undermining No No No -Wound/Ulcer Outcome Not Healed Not Healed Not Healed -Ulcer Cleansing Rinsed/ Rinsed/ Rinsed/ Irrigated with Irrigated with Irrigated with Saline Saline Saline -Foul Odor after Cleansing No No No -Bioengineered Tissue No No No -Bleeding Controlled with Pressure Pressure Pressure -Treatment Response Procedure Procedure Procedure Tolerated Well Tolerated Well Tolerated Well -Offloading No No No -Debridement - Subq, 1st 20sq cm Yes Yes Yes Pain Scale: 0-10 Numeric Is Patient Pain Free? Yes Yes Yes WC - Nurse 3 - General Ulcer D/C NN Start: 12/26/22 08:31 Freq: Status: Active Protocol: Activity Type Activity Date Activity User E-sign Co-sign Detail Recorded Client Recorded Date Recorded By Document 12/26/22 08:49 MW [id number] 12/26/22 08:49 MW Document 01/02/23 08:51 MW [id number] 01/02/23 08:51 MW Document 01/09/23 09:07 MW [id number] 01/09/23 09:08 MW 12/26/22 01/02/23 01/09/23 08:49 08:51 09:07 Wound Care Center Nurse 3 #1 Chin -Ulcer Cleansing Rinsed/ Rinsed/ Rinsed/ Irrigated with Irrigated with Irrigated with Saline Saline Saline -Foul Odor after Cleansing No No No -Negative Pressure Wound Therapy N/A N/A N/A -Primary Dressing Applied NonAdherent NonAdherent NonAdherent Contact Layer, Contact Layer, Contact Layer, Promogran Promogran Promogran Ruth Matter Ruth Matter Ruth Matter -Primary Dressing Covered/Secured with Dry Gauze, Dry Gauze, Dry Gauze, Secured with Secured with Secured with Tape Tape Tape -Promogran Ruth Matter 1 1 1 Treatment Response Procedure Procedure Procedure Tolerated Well Tolerated Well Tolerated Well Pain Scale: 0-10 Numeric Is Patient Pain Free? Yes Yes Yes Teaching: Wound Center Dressing Your Wound -Person Taught Patient Patient,Family Patient,Family -Teaching Method Discussion, Discussion, Discussion, Demonstration Demonstration Demonstration -Response to teaching Verbalize Verbalize Verbalize understanding understanding understanding WC - Visit Discharge Discharge Condition Stable Stable Stable Ambulatory Status Ambulatory Ambulatory Ambulatory Transportation Private Auto Private Auto Private Auto Accompanied by daughter daughter daughter Medication Reconcilliation completed & No No No provided to patient/care provider Clinical Summary of Care Provided Yes Yes Yes Assessment/Plan Assessment/Plan (1) Head and neck cancer: CODE(S): C76.0 - Malignant neoplasm of head, face and neck (2) Delayed surgical wound healing: CODE(S): T81.89XA - Other complications of procedures, not elsewhere classified, initial encounter QUALIFIERS: Encounter type: initial encounter Qualified Code(s): T81.89XA - Other complications of procedures, not elsewhere classified, initial encounter PLAN: Wash area with antibacterial soap and place Ruth and base cover with Adaptic gauze and paper tape daily dressings Cultures obtained will call with results Follow-up in 1 week (3) Nonhealing surgical wound: CODE(S): T81.89XA - Other complications of procedures, not elsewhere classified, initial encounter QUALIFIERS: Encounter type: initial encounter Qualified Code(s): T81.89XA - Other complications of procedures, not elsewhere classified, initial encounter (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
[2023-01-16 08:32] VITALS: BP 117/55; PULSE 73; RESP 18; TEMP 36.1; BMI 22.3
--- NOTE | 2023-01-16 10:40 | PCM.WC.PN ---
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 He received courses of chemotherapy followed by radiation treatments, which were concluded by the end of 2017. He recently underwent oral surgery and had 8 teeth extracted. Two extraction sites have failed to heal. On November 07, 2021, the patient underwent reconstruction of the jaw using bone from his left lower leg. 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 Progress of Wound: We have been using Ruth on his wound base and it showing more shallow and seems to be filling in better. Measurements for the open area are smaller depth is about the same in the deep area. We will reculture, daughter felt there was more slough this week. Subjective Subjective Patient is pleased with outcomes and started his new antibiotic Objective Data Objective Data As above cultures were positive for anaerobes and he is filling in nicely specially the left side of the wound is more shallow and filling in nicely and becoming part of his chin right side still has depth but cleans up well Vital Signs: Vital Signs Temp Pulse Resp BP O2 Del Method 97 F L 73 18 117/55 L Trach Collar 01/16/23 08:32 01/16/23 08:32 01/16/23 08:32 01/16/23 08:32 01/02/23 08:29 Oxygen Delivery Method Trach Collar Weight: 130 lb Body Mass Index (BMI) 22.3 Lab / Micro Data Micro: Microbiology 01/09/23 09:00 Wound - Face Gram Stain - Final 01/09/23 09:00 Wound - Face Wound Culture - Final Pseudomonas aeruginosa Meth. resistant Staph. aureus 01/09/23 09:00 Wound - Face Anaerobic Culture - Final Anaerobic cocci Physical Exam Narrative ECOG 1 Hard of hearing Const alert, oriented x3 and no apparent distress General Appearance: cooperative and comfortable HEENT normocephalic HEENT Narrative: Reconstruction of the lower face, soft tissue edema Mouth: No thrush Eyes General Eye: normal appearance of both eyes Conjunctiva: conjunctiva normal Sclera: sclera normal Neck no lymphadenopathy and no JVD Neck Narrative: Postoperative changes and flap. Wound is covered with surgical dressing General: tracheostomy present Lymph Lymphatic: no lymphadenopathy noted Chest Chest: symmetrical chest wall rise Resp Auscultation: diminished lung sounds bilateral and diffuse Cardio regular rate and regular rhythm Jugular Venous Distention: Negative for JVD GI soft to palpation, non-tender and non-distended; Negative for hepatosplenomegaly GI Narrative: PEG tube Inspection: GI tube present no CVA tenderness Back/Spine no thoracic nor lumbar tenderness Extremity General Extremity: Negative for clubbing, cyanosis or edema Skin no rashes or lesions noted Neuro oriented x3, CN's II-XII intact bilaterally and moves all extremities Neuro Narrative: Bilateral symmetric wasting of first interosseous muscles. Coordination / Balance: [id number] test normal Speech: speech abnormal Gait (Neuro): normal gait Psych mental status grossly normal, thought process normal, cooperative and affect normal Debridement Note Debridement Note Wound debrided: Left jaw nonhealing surgical wound Type of Debridement: Excisional debridement Anesthesia Used: 5% Lidocaine Gel Depth: in the subcutaneous layer Percentage of wound debrided: 100 Instrument Used: 5mm curette Tissue Removed: Fibrin and devitalized tissue Severity: Fat Layer Exposed Amount of bleeding with debridement: Mild Bleeding Controlled with: Compression and gauze Patient tolerated procedure: Patient tolerated procedure well Post-Debridement Measurements and Additional Note: Post-Debridement Measurements/Treatment - Nurse 1 - General Ulcer Assessment Start: 12/26/22 08:31 Freq: Status: Active Protocol: BRANDAN Activity Type Activity Date Activity User E-sign Co-sign Detail Recorded Client Recorded Date Recorded By Document 12/26/22 08:31 PL [id number] 12/26/22 08:39 PL Document 01/02/23 08:29 JF [id number] 01/02/23 08:33 JF Document 01/09/23 08:38 RB [id number] 01/09/23 08:47 RB Document 01/16/23 08:32 RB [id number] 01/16/23 08:34 RB 12/26/22 01/02/23 01/09/23 08:31 08:29 08:38 - Today's Visit Information Type of service Follow-up Visit Follow-up Visit Follow-up Visit (Physician/SENIOR MANUFACTURING ENGINEER (Physician/SENIOR MANUFACTURING ENGINEER (Physician/SENIOR MANUFACTURING ENGINEER ) ) ) Arrival Mode Ambulatory Ambulatory Ambulatory Transfer Assistance None None Patient Identification Verified (Name & Yes Yes Yes ) Patient Requires Transmission-Based No No No Precautions Safety Precautions NA Height and Weight Body Mass Index (BMI) 22.3 22.3 22.3 BMI Classification Normal Normal Normal Vital Signs Temperature (97.8 F-99.1 F) 97.0 F L 97.4 F L 97 F L Temperature Source Temporal Temporal Temporal Pulse Rate (60-100) 75 75 71 Pulse Location Monitor Monitor Respiratory Rate (12-18) 20 H 16 18 Respiratory rate source Observation Observation Oxygen Delivery Method Trach Collar Blood Pressure (90/60-120/80) 129/61 H 124/57 H 124/59 H Blood Pressure Mean (mm Hg) 83 79 80 Source Monitor Monitor Position Semi-Fowlers Semi-Fowlers Blood Pressure Location Left Arm Left Arm History Since Last Visit- (Skip if this is Patient's initial visit) Have you changed medications since your No No No last visit? Any new allergies or adverse reactions No No No Had a fall/change in ADL's that may No No No increase risk of falls Signs or symptoms of abuse and/or No No No neglect since last visit Have you been in the hospital since your No No No last visit? Has dressing in place as prescribed Yes Yes Yes Has compression in place as prescribed N/A N/A No Has offloadiing in place as prescribed N/A N/A No Experienced any changes in pain level or No No No management Left Footwear Slipper Right Footwear Regular Shoe Pain Scale: 0-10 Numeric Is Patient Pain Free? Yes Yes Yes 01/16/23 08:32 WC - Today's Visit Information Type of service Follow-up Visit (Physician/SENIOR MANUFACTURING ENGINEER ) Arrival Mode Ambulatory Transfer Assistance None Patient Identification Verified (Name & Yes ) Patient Requires Transmission-Based No Precautions Safety Precautions Height and Weight Body Mass Index (BMI) 22.3 BMI Classification Normal Vital Signs Temperature (97.8 F-99.1 F) 97 F L Temperature Source Temporal Pulse Rate (60-100) 73 Pulse Location Monitor Respiratory Rate (12-18) 18 Respiratory rate source Observation Oxygen Delivery Method Blood Pressure (90/60-120/80) 117/55 L Blood Pressure Mean (mm Hg) 75 Source Monitor Position Semi-Fowlers Blood Pressure Location Left Arm History Since Last Visit- (Skip if this is Patient's initial visit) Have you changed medications since your No last visit? Any new allergies or adverse reactions No Had a fall/change in ADL's that may No increase risk of falls Signs or symptoms of abuse and/or No neglect since last visit Have you been in the hospital since your No last visit? Has dressing in place as prescribed Yes Has compression in place as prescribed No Has offloadiing in place as prescribed No Experienced any changes in pain level or No management Left Footwear Right Footwear Pain Scale: 0-10 Numeric Is Patient Pain Free? Yes WC - Nurse 1 - General Ulcer Measurement Start: 12/26/22 08:31 Freq: Status: Active Protocol: Activity Type Activity Date Activity User E-sign Co-sign Detail Recorded Client Recorded Date Recorded By Document 12/26/22 08:31 PL [id number] 12/26/22 08:39 PL Document 01/02/23 08:29 JF [id number] 01/02/23 08:33 JF Document 01/09/23 08:38 RB [id number] 01/09/23 08:47 RB Document 01/16/23 08:32 RB [id number] 01/16/23 08:34 RB 12/26/22 01/02/23 01/09/23 08:31 08:29 08:38 Wound Center Nurse 1 #1 Chin -Combined with other wound No No No -Current Size (cm) - Length 2.0 3.0 2 -Current Size (cm) - Width 3.0 2.8 2.4 -Current Size (cm) - Depth 0.2 0.4 0.4 -Total Square Cm 6.00 8.40 4.8 -Photo Taken No Yes Yes -Epithelialization Medium 34-66% None Present -Tunneling No -Undermining/Tunneling No No -Circular Undermining No No -Exudate Amt Medium Medium Large -Exudate Type Serosanguineous Serosanguineous Serosanguineous -Wound Margin Flat & Intact Thickened & Rolled Under -Granulation Amt Medium (34-66%) Medium (34-66%) Medium (34-66%) -Granulation Quality [place] -Slough/Fibrin Yes Yes Yes -Necrosis Amt Medium (34-66%) Small (1-33%) Medium (34-66%) -Necrotic Tissue Type Adherent Slough Adherent Slough Adherent Slough -Structure Exposed N/A N/A -Texture (Candace-wound Skin Appearance) No Abnormality Assessed Assessed -Moisture (Candace-wound Skin Appearance) No Abnormality Assessed,Dry/ Assessed Scaly -Color (Candace-wound Skin Appearance) No Abnormality Assessed Assessed -Temperature (Candace-wound Skin No Abnormality No Abnormality Appearance) (Pt Warm) (Pt Warm) -Tenderness on Palpation (Candace-wound No No Skin Appearance) -Ulcer Cleansing Rinsed/ Rinsed/ Wound Cleanser Irrigated with Irrigated with Saline Saline -Foul Odor after Cleansing No No -Anesthetic Used 5% Lidocaine 5% Lidocaine 5% Lidocaine Gel Gel Gel Lower Limb Edema Present 01/16/23 08:32 Wound Center Nurse 1 #1 Chin -Combined with other wound No -Current Size (cm) - Length 2.2 -Current Size (cm) - Width 2 -Current Size (cm) - Depth 0.5 -Total Square Cm 4.4 -Photo Taken -Epithelialization -Tunneling No -Undermining/Tunneling No -Circular Undermining No -Exudate Amt Medium -Exudate Type Serosanguineous -Wound Margin Distinct, Outline Attached -Granulation Amt Medium (34-66%) -Granulation Quality [place] -Slough/Fibrin Yes -Necrosis Amt Medium (34-66%) -Necrotic Tissue Type Adherent Slough -Structure Exposed N/A -Texture (Candace-wound Skin Appearance) Assessed -Moisture (Candace-wound Skin Appearance) Assessed -Color (Candace-wound Skin Appearance) Assessed -Temperature (Candace-wound Skin No Abnormality Appearance) (Pt Warm) -Tenderness on Palpation (Candace-wound No Skin Appearance) -Ulcer Cleansing Wound Cleanser -Foul Odor after Cleansing No -Anesthetic Used 5% Lidocaine Gel Lower Limb Edema Present WC - Nurse 2 - General Ulcer CM Notes Start: 12/26/22 08:31 Freq: Status: Active Protocol: Activity Type Activity Date Activity User E-sign Co-sign Detail Recorded Client Recorded Date Recorded By Document 12/26/22 08:43 MW [id number] 12/26/22 08:45 MW Document 01/02/23 08:47 MW [id number] 01/02/23 08:50 MW Document 01/09/23 08:59 MW [id number] 01/09/23 09:01 MW Document 01/16/23 08:37 MW [id number] 01/16/23 08:40 MW 12/26/22 01/02/23 01/09/23 08:43 08:47 08:59 Wound Center Nurse 2 #1 Chin -Time 08:44 08:48 09:00 -Correct Patient Yes Yes Yes -Correct Side, Site, Position Yes Yes Yes -Correct Procedure Yes Yes Yes -Procedure Performed Yes Yes Yes -Type of Procedure Debridement Debridement Debridement -Clinical Debridement Subcutaneous Subcutaneous Subcutaneous -Tissue Removed Subcutaneous Subcutaneous Subcutaneous -Post Debridement (cm) - Length 2.0 3.0 2.8 -Post Debridement (cm) - Width 1.8 2.0 2.4 -Post Debridement (cm) - Depth 0.5 0.4 0.5 -Total Square (Post) (cm) 3.60 6.00 6.72 -Area of Debridement (cm) - Length 2.0 3.0 2.8 -Area of Debridement (cm) - Width 1.8 2.0 2.4 -Total Square (Area) (cm) 3.60 6.00 6.72 -Tunneling No No No -Undermining/Tunneling No No No -Circular Undermining No No No -Wound/Ulcer Outcome Not Healed Not Healed Not Healed -Ulcer Cleansing Rinsed/ Rinsed/ Rinsed/ Irrigated with Irrigated with Irrigated with Saline Saline Saline -Foul Odor after Cleansing No No No -Bioengineered Tissue No No No -Bleeding Controlled with Pressure Pressure Pressure -Treatment Response Procedure Procedure Procedure Tolerated Well Tolerated Well Tolerated Well -Offloading No No No -Debridement - Subq, 1st 20sq cm Yes Yes Yes Pain Scale: 0-10 Numeric Is Patient Pain Free? Yes Yes Yes 01/16/23 08:37 Wound Center Nurse 2 #1 Chin -Time 08:37 -Correct Patient Yes -Correct Side, Site, Position Yes -Correct Procedure Yes -Procedure Performed Yes -Type of Procedure Debridement -Clinical Debridement Subcutaneous -Tissue Removed Subcutaneous -Post Debridement (cm) - Length 2.2 -Post Debridement (cm) - Width 1.8 -Post Debridement (cm) - Depth 0.5 -Total Square (Post) (cm) 3.96 -Area of Debridement (cm) - Length 2.2 -Area of Debridement (cm) - Width 1.8 -Total Square (Area) (cm) 3.96 -Tunneling No -Undermining/Tunneling No -Circular Undermining No -Wound/Ulcer Outcome Not Healed -Ulcer Cleansing Rinsed/ Irrigated with Saline -Foul Odor after Cleansing No -Bioengineered Tissue No -Bleeding Controlled with Pressure -Treatment Response Procedure Tolerated Well -Offloading No -Debridement - Subq, 1st 20sq cm Yes Pain Scale: 0-10 Numeric Is Patient Pain Free? Yes WC - Nurse 3 - General Ulcer D/C NN Start: 12/26/22 08:31 Freq: Status: Active Protocol: Activity Type Activity Date Activity User E-sign Co-sign Detail Recorded Client Recorded Date Recorded By Document 12/26/22 08:49 MW [id number] 12/26/22 08:49 MW Document 01/02/23 08:51 MW [id number] 01/02/23 08:51 MW Document 01/09/23 09:07 MW [id number] 01/09/23 09:08 MW Document 01/16/23 08:40 MW [id number] 01/16/23 08:41 MW 12/26/22 01/02/23 01/09/23 08:49 08:51 09:07 Wound Care Center Nurse 3 #1 Chin -Ulcer Cleansing Rinsed/ Rinsed/ Rinsed/ Irrigated with Irrigated with Irrigated with Saline Saline Saline -Foul Odor after Cleansing No No No -Negative Pressure Wound Therapy N/A N/A N/A -Primary Dressing Applied NonAdherent NonAdherent NonAdherent Contact Layer, Contact Layer, Contact Layer, Promogran Promogran Promogran Ruth Matter Ruth Matter Ruth Matter -Primary Dressing Covered/Secured with Dry Gauze, Dry Gauze, Dry Gauze, Secured with Secured with Secured with Tape Tape Tape -Promogran Ruth Matter 1 1 1 Treatment Response Procedure Procedure Procedure Tolerated Well Tolerated Well Tolerated Well Pain Scale: 0-10 Numeric Is Patient Pain Free? Yes Yes Yes Teaching: Wound Center Dressing Your Wound -Person Taught Patient Patient,Family Patient,Family -Teaching Method Discussion, Discussion, Discussion, Demonstration Demonstration Demonstration -Response to teaching Verbalize Verbalize Verbalize understanding understanding understanding WC - Visit Discharge Discharge Condition Stable Stable Stable Ambulatory Status Ambulatory Ambulatory Ambulatory Transportation Private Auto Private Auto Private Auto Accompanied by daughter daughter daughter Medication Reconcilliation completed & No No No provided to patient/care provider Clinical Summary of Care Provided Yes Yes Yes 01/16/23 08:40 Wound Care Center Nurse 3 #1 Chin -Ulcer Cleansing Rinsed/ Irrigated with Saline -Foul Odor after Cleansing No -Negative Pressure Wound Therapy N/A -Primary Dressing Applied NonAdherent Contact Layer, Promogran Ruth Matter -Primary Dressing Covered/Secured with Dry Gauze, Secured with Tape -Promogran Ruth Matter 1 Treatment Response Procedure Tolerated Well Pain Scale: 0-10 Numeric Is Patient Pain Free? Yes Teaching: Wound Center Dressing Your Wound -Person Taught Patient -Teaching Method Discussion, Demonstration -Response to teaching Verbalize understanding WC - Visit Discharge Discharge Condition Stable Ambulatory Status Ambulatory Transportation Private Auto Accompanied by self Medication Reconcilliation completed & No provided to patient/care provider Clinical Summary of Care Provided Yes Assessment/Plan Assessment/Plan (1) Head and neck cancer: CODE(S): C76.0 - Malignant neoplasm of head, face and neck (2) Delayed surgical wound healing: CODE(S): T81.89XA - Other complications of procedures, not elsewhere classified, initial encounter QUALIFIERS: Encounter type: initial encounter Qualified Code(s): T81.89XA - Other complications of procedures, not elsewhere classified, initial encounter PLAN: Wash area with antibacterial soap and place Ruth and base cover with Adaptic gauze and paper tape daily dressings Cultures obtained are positive patient started on antibiotics levofloxacin 500 mg daily for 14 days Follow-up in 1 week (3) Nonhealing surgical wound: CODE(S): T81.89XA - Other complications of procedures, not elsewhere classified, initial encounter QUALIFIERS: Encounter type: initial encounter Qualified Code(s): T81.89XA - Other complications of procedures, not elsewhere classified, initial encounter (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
== END 2023-01-20 23:59 | disposition home or self-care (01) ==
LOC: WC 08:30
PROVIDERS: PCP Nurse Practitioner; Referring Provider Nurse Practitioner; Visit Provider Nurse Practitioner
DX: T81.89XA Other complications of procedures, not elsewhere classified, initial encounter (principal); Z93.0 Tracheostomy status; C76.0 Malignant neoplasm of head, face and neck; L59.8 Other specified disorders of the skin and subcutaneous tissue related to radiation; Y84.2 Radiological procedure and radiotherapy as the cause of abnormal reaction of the patient, or of later complication, without mention of misadventure at the time of the procedure; Z92.3 Personal history of irradiation; Z92.21 Personal history of antineoplastic chemotherapy; Z85.89 Personal history of malignant neoplasm of other organs and systems
CPT/HCPCS: 11042; 87070; 87075; 87077; 87186; 87205

== ENCOUNTER → 2023-01-28 | Outpatient (CLI) | payer OTHER, SELFPAY ==
[2022-01-31 09:09] VITALS: BMI 22.6
--- NOTE | 2023-01-28 08:01 | CT_ITS ---
STUDY: CT CHEST WITH CONTRAST REASON FOR EXAM: Male, 62 years old. Follow up treated recurrent H N SCC -- please compare to prior RADIATION DOSAGE (If Supplied By Facility): CTDIvol = ( 11.91 ) mGy, DLP = ( 695.60 ) mGycm TECHNIQUE: Transaxial imaging was performed following intravenous administration of IV 100mL Isovue-370. Multiplanar coronal and sagittal images were reformatted. Individualized dose optimization techniques were used for this CT. COMPARISON: Comparison is made with prior study July 24, 2022. FINDINGS: CHEST A tracheostomy tube is seen. It is in good position. Stable small benign-appearing bilateral axillary lymph nodes. Increased interstitial markings at the lung apices likely worse on the right side suggestive of scarring. No pulmonary nodule or mass lesion is seen. Stable 5.4 mm noncalcified nodule in the lateral aspect of the right upper lobe as seen on axial image #76. There is no demonstrated pleural abnormality. Normal heart and pericardium. Normal mediastinum. Normal hilar regions. Normal unenhanced pulmonary arteries. Normal aorta arch and descending thoracic aorta. There are multi-level degenerative changes of the thoracic spine. There is no demonstrated abnormality of the visualized upper abdomen. CT/Chest WITH Contrast IMPRESSION: Stable examination. Electronically Signed: Bib Reeves MD at 12:48 EDT ,
--- NOTE | 2023-01-28 08:01 | CT_ITS ---
STUDY: CT SOFT TISSUE NECK WITH CONTRAST REASON FOR EXAM: Male, 62 years old. Follow up treated recurrent H N SCC -- please compare to prior RADIATION DOSAGE (If Supplied By Facility): CTDIvol = ( 11.91 ) mGy, DLP = ( 695.60 ) mGycm TECHNIQUE: The patient was scanned in a multi-detector CT scanner. High resolution transaxial imaging was performed following intravenous administration of IV 100mL Isovue-370. Sagittal and coronal images were reconstructed. Individualized dose optimization techniques were used for this CT. COMPARISON: Comparison is made with prior examination July 24, 2022. FINDINGS: A tracheostomy tube is seen in situ. Once again, there is evidence of diffuse overlying skin thickening as well as subcutaneous cutaneous edema most likely secondary to radiation therapy. Once again, the patient is status post screw and plate fixation of the mandible. This is unchanged. No bony destruction is seen. Normal bilateral parotid glands. 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 Normal bilateral parapharyngeal spaces. Normal bilateral carotid spaces. Normal bilateral sublingual and submandibular glands and spaces. Normal visualized nasopharynx. Normal retropharyngeal space. Normal perivertebral space. Normal visualized bilateral faucial tonsils. The visualized tongue, tongue base and oropharynx are normal. The visualized cervical lymph nodes (levels I-) are within normal size limits, and maintain normal morphology. There is no demonstrated solid or cystic mass lesion. There is no abnormal contrast enhancement. Normal epiglottis, bilateral vallecula and hypopharynx. The pre-epiglottic and paraglottic adipose spaces are normal. Normal visualized bilateral piriform sinuses, aryepiglottic folds, vocal cords, and arytenoid-cricoid articulations. Normal subglottic trachea. Normal bilateral lobes of the thyroid gland. Normal visualized pulmonary apices. Retention cysts or polyps seen in the left maxillary sinus. Mucosal polyp or retention cyst seen at the base of the right maxillary sinus. Mild degree of mucosal thickening of the ethmoid sinuses. There is multilevel degenerative changes of the cervical spine. CT/Soft Tissue Neck WITH Contrast IMPRESSION: Stable examination. Electronically Signed: Bib Reeves MD at 12:44 EDT ,
[2023-01-28 08:30] LABS: CREATININE FINGERSTICK < 0.9 mg/dL (0.70-1.30); EGFR FINGERSTICK > 60.0000 mL/min (>60)
== END | disposition home or self-care (01) ==
LOC: CT 08:00
PROVIDERS: PCP Nurse Practitioner Family; Referring Provider Student in an Organized Health Care Education/Training Program; Visit Provider Student in an Organized Health Care Education/Training Program
DX: Z85.89 Personal history of malignant neoplasm of other organs and systems (principal)
CPT/HCPCS: 70491; 71260; Q9967

== ENCOUNTER 2023-02-20 08:45 | Outpatient (RCR) | payer OTHER, SELFPAY ==
[2022-01-31 09:09] VITALS: BMI 22.6
[2023-01-21 00:26] VITALS: BP 117/55; PULSE 73; RESP 18; TEMP 36.1; BMI 22.3
[2023-01-23 08:17] VITALS: BP 116/58; PULSE 67; RESP 18; TEMP 36.6; BMI 22.3
--- NOTE | 2023-01-23 09:42 | PCM.WC.PN ---
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 He received courses of chemotherapy followed by radiation treatments, which were concluded by the end of 2017. He recently underwent oral surgery and had 8 teeth extracted. Two extraction sites have failed to heal. On November 07, 2021, the patient underwent reconstruction of the jaw using bone from his left lower leg. 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 Progress of Wound: The jaw wound itself is filling in nicely still gets a lot of contamination in that wound with an bacteria. Tolerating medication well next week he gets his G-tube pulled and next will be his trach. Subjective Subjective Daughter and patient are pleased with outcomes Objective Data Objective Data Measuring smaller doing well less depth Vital Signs: Vital Signs Temp Pulse Resp BP O2 Del Method 97.9 F 67 18 116/58 L Room Air 01/23/23 08:17 01/23/23 08:17 01/23/23 08:17 01/23/23 08:17 01/23/23 08:17 Oxygen Delivery Method Room Air Weight: 130 lb Body Mass Index (BMI) 22.3 Lab / Micro Data Attestation: I reviewed the patient's lab results. Physical Exam Narrative ECOG 1 Hard of hearing Const alert, oriented x3 and no apparent distress General Appearance: cooperative and comfortable HEENT normocephalic HEENT Narrative: Reconstruction of the lower face, soft tissue edema Mouth: No thrush Eyes General Eye: normal appearance of both eyes Conjunctiva: conjunctiva normal Sclera: sclera normal Neck no lymphadenopathy and no JVD Neck Narrative: Postoperative changes and flap. Wound is covered with surgical dressing General: tracheostomy present Lymph Lymphatic: no lymphadenopathy noted Chest Chest: symmetrical chest wall rise Resp Auscultation: diminished lung sounds bilateral and diffuse Cardio regular rate and regular rhythm Jugular Venous Distention: Negative for JVD GI soft to palpation, non-tender and non-distended; Negative for hepatosplenomegaly GI Narrative: PEG tube Inspection: GI tube present no CVA tenderness Back/Spine no thoracic nor lumbar tenderness Extremity General Extremity: Negative for clubbing, cyanosis or edema Skin no rashes or lesions noted Neuro oriented x3, CN's II-XII intact bilaterally and moves all extremities Neuro Narrative: Bilateral symmetric wasting of first interosseous muscles. Coordination / Balance: [id number] test normal Speech: speech abnormal Gait (Neuro): normal gait Psych mental status grossly normal, thought process normal, cooperative and affect normal Debridement Note Debridement Note Wound debrided: Left jaw post surgical nonhealing Laterality: Left Type of Debridement: Excisional debridement Anesthesia Used: 5% Lidocaine Gel Depth: Down to and including healthy tissue and in the subcutaneous layer Percentage of wound debrided: 100 Instrument Used: 5mm curette Tissue Removed: Devitalized tissue and slough and fibrin Severity: Fat Layer Exposed Amount of bleeding with debridement: Mild Bleeding Controlled with: Compression and gauze Patient tolerated procedure: Patient tolerated procedure well Post-Debridement Measurements and Additional Note: Post-Debridement Measurements/Treatment - Nurse 1 - General Ulcer Assessment Start: 01/23/23 08:16 Freq: Status: Active Protocol: DHAVAL.LOWFRANK Activity Type Activity Date Activity User E-sign Co-sign Detail Recorded Client Recorded Date Recorded By Document 01/23/23 08:17 [facility] [id number] 01/23/23 08:26 [facility] 01/23/23 08:17 - Today's Visit Information Type of service Follow-up Visit (Physician/DATA COMPILER ) Arrival Mode Ambulatory Transfer Assistance None Patient Identification Verified (Name & Yes ) Patient Requires Transmission-Based No Precautions Height and Weight Body Mass Index (BMI) 22.3 BMI Classification Normal Vital Signs Temperature (97.8 F-99.1 F) 97.9 F Temperature Source Temporal Pulse Rate (60-100) 67 Pulse Location Monitor Respiratory Rate (12-18) 18 Respiratory rate source Observation Oxygen Delivery Method Room Air Blood Pressure (90/60-120/80) 116/58 L Blood Pressure Mean (mm Hg) 77 Source Monitor Position Sitting Blood Pressure Location Left Arm History Since Last Visit- (Skip if this is Patient's initial visit) Have you changed medications since your No last visit? Any new allergies or adverse reactions No Had a fall/change in ADL's that may No increase risk of falls Signs or symptoms of abuse and/or No neglect since last visit Have you been in the hospital since your No last visit? Has dressing in place as prescribed Yes Has compression in place as prescribed N/A Has offloadiing in place as prescribed N/A Experienced any changes in pain level or No management Left Footwear Regular Shoe Right Footwear Regular Shoe Pain Scale: 0-10 Numeric Is Patient Pain Free? Yes WC - Nurse 1 - General Ulcer Measurement Start: 01/23/23 08:16 Freq: Status: Active Protocol: Activity Type Activity Date Activity User E-sign Co-sign Detail Recorded Client Recorded Date Recorded By Document 01/23/23 08:17 [facility] [id number] 01/23/23 08:26 [facility] 01/23/23 08:17 Wound Center Nurse 1 #1 Chin -Combined with other wound No -Current Size (cm) - Length 2.3 -Current Size (cm) - Width 2 -Current Size (cm) - Depth 0.3 -Total Square Cm 4.6 -Photo Taken No -Epithelialization Small 1-33% -Tunneling No -Undermining/Tunneling No -Circular Undermining No -Exudate Amt Medium -Exudate Type Serous -Wound Margin Distinct, Outline Attached -Granulation Amt Small (1-33%) -Granulation Quality [place] -Slough/Fibrin Yes -Necrosis Amt Large (67-100%) -Necrotic Tissue Type Adherent Slough -Texture (Candace-wound Skin Appearance) Assessed, Scarring -Moisture (Candace-wound Skin Appearance) Assessed -Color (Candace-wound Skin Appearance) Assessed -Temperature (Candace-wound Skin No Abnormality Appearance) (Pt Warm) -Tenderness on Palpation (Candace-wound No Skin Appearance) -Ulcer Cleansing Rinsed/ Irrigated with Saline -Foul Odor after Cleansing No -Anesthetic Used 5% Lidocaine Gel WC - Nurse 2 - General Ulcer CM Notes Start: 01/23/23 08:16 Freq: Status: Active Protocol: Activity Type Activity Date Activity User E-sign Co-sign Detail Recorded Client Recorded Date Recorded By Document 01/23/23 08:48 MW [id number] 01/23/23 08:50 MW 01/23/23 08:48 Wound Center Nurse 2 -Time 08:48 -Correct Patient Yes -Correct Side, Site, Position Yes -Correct Procedure Yes -Procedure Performed Yes -Type of Procedure Debridement -Clinical Debridement Subcutaneous -Tissue Removed Subcutaneous -Post Debridement (cm) - Length 2.0 -Post Debridement (cm) - Width 2.3 -Post Debridement (cm) - Depth 0.5 -Total Square (Post) (cm) 4.60 -Area of Debridement (cm) - Length 2.0 -Area of Debridement (cm) - Width 2.3 -Total Square (Area) (cm) 4.60 -Tunneling No -Undermining/Tunneling No -Circular Undermining No -Wound/Ulcer Outcome Not Healed -Ulcer Cleansing Rinsed/ Irrigated with Saline -Foul Odor after Cleansing No -Bioengineered Tissue No -Bleeding Controlled with Pressure -Treatment Response Procedure Tolerated Well -Offloading No -Debridement - Subq, 1st 20sq cm Yes Pain Scale: 0-10 Numeric Is Patient Pain Free? Yes - Nurse 3 - General Ulcer D/C NN Start: 01/23/23 08:16 Freq: Status: Active Protocol: Activity Type Activity Date Activity User E-sign Co-sign Detail Recorded Client Recorded Date Recorded By Document 01/23/23 08:56 [facility] [id number] 01/23/23 08:57 [facility] 01/23/23 08:56 Wound Care Center Nurse 3 #1 Chin -Ulcer Cleansing Rinsed/ Irrigated with Saline -Foul Odor after Cleansing No -Primary Dressing Applied NonAdherent Contact Layer, Promogran Ruth Matter -Primary Dressing Covered/Secured with Dry Gauze, Secured with Tape -Promogran Ruth Matter 1 Treatment Response Procedure Tolerated Well Pain Scale: 0-10 Numeric Is Patient Pain Free? Yes - Visit Discharge Discharge Condition Stable Ambulatory Status Ambulatory Transportation Private Auto Accompanied by stefanie Assessment/Plan Assessment/Plan (1) Head and neck cancer: CODE(S): C76.0 - Malignant neoplasm of head, face and neck (2) Delayed surgical wound healing: CODE(S): T81.89XA - Other complications of procedures, not elsewhere classified, initial encounter QUALIFIERS: Encounter type: initial encounter Qualified Code(s): T81.89XA - Other complications of procedures, not elsewhere classified, initial encounter PLAN: Wash area with antibacterial soap and place Ruth and base cover with Adaptic gauze and paper tape daily dressings Cultures obtained are positive patient continue antibiotics levofloxacin 500 mg daily for 14 days Follow-up in 1 week (3) Nonhealing surgical wound: CODE(S): T81.89XA - Other complications of procedures, not elsewhere classified, initial encounter QUALIFIERS: Encounter type: initial encounter Qualified Code(s): T81.89XA - Other complications of procedures, not elsewhere classified, initial encounter (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
[2023-01-30 08:27] VITALS: BP 115/62; PULSE 72; RESP 18; TEMP 37.2; BMI 22.3
--- NOTE | 2023-01-30 09:53 | PN.PCM_ITS ---
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 He received courses of chemotherapy followed by radiation treatments, which were concluded by the end of 2017. He recently underwent oral surgery and had 8 teeth extracted. Two extraction sites have failed to heal. On November 07, 2021, the patient underwent reconstruction of the jaw using bone from his left lower leg. He now has a chronic, non-healing surgical wound in the left sub- mandibular area. Progress of Wound: The jaw wound itself is filling in nicely still gets a lot of contamination in that wound with an bacteria. Tolerating medication well next week he gets his G-tube pulled and next will be his trach. Wound appears smaller this week Subjective Subjective No concerns still happy with outcomes. Patient states she is getting a smaller trach and placement. Objective Data Objective Data Debrides easily bleeds easily. Size appears smaller it seems to be honing in. We will continue using the Ruth for now Vital Signs: Vital Signs Temp Pulse Resp BP O2 Del Method 99 F 72 18 115/62 Room Air 01/30/23 08:27 01/30/23 08:27 01/30/23 08:27 01/30/23 08:27 01/23/23 08:17 Oxygen Delivery Method Room Air Weight: 130 lb Body Mass Index (BMI) 22.3 Lab / Micro Data Attestation: I reviewed the patient's lab results. Physical Exam Narrative ECOG 1 Hard of hearing Const alert, oriented x3 and no apparent distress General Appearance: cooperative and comfortable HEENT normocephalic HEENT Narrative: Reconstruction of the lower face, soft tissue edema Mouth: No thrush Eyes General Eye: normal appearance of both eyes Conjunctiva: conjunctiva normal Sclera: sclera normal Neck no lymphadenopathy and no JVD Neck Narrative: Postoperative changes and flap. Wound is covered with surgical dressing General: tracheostomy present Lymph Lymphatic: no lymphadenopathy noted Chest Chest: symmetrical chest wall rise Resp Auscultation: diminished lung sounds bilateral and diffuse Cardio regular rate and regular rhythm Jugular Venous Distention: Negative for JVD GI soft to palpation, non-tender and non-distended; Negative for hepatosplenomegaly GI Narrative: PEG tube Inspection: GI tube present no CVA tenderness Back/Spine no thoracic nor lumbar tenderness Extremity General Extremity: Negative for clubbing, cyanosis or edema Skin no rashes or lesions noted Neuro oriented x3, CN's II-XII intact bilaterally and moves all extremities Neuro Narrative: Bilateral symmetric wasting of first interosseous muscles. Coordination / Balance: [id number] test normal Speech: speech abnormal Gait (Neuro): normal gait Psych mental status grossly normal, thought process normal, cooperative and affect normal Debridement Note Debridement Note Wound debrided: Left jaw postoperative nonhealing open wound Type of Debridement: Excisional debridement Anesthesia Used: 5% Lidocaine Gel Depth: Down to and including healthy tissue and in the subcutaneous layer Percentage of wound debrided: 100 Instrument Used: 5mm curette Tissue Removed: Fibrin and devitalized tissue Severity: Fat Layer Exposed Amount of bleeding with debridement: Mild Bleeding Controlled with: Compression and gauze Patient tolerated procedure: Patient tolerated procedure well Post-Debridement Measurements and Additional Note: Post-Debridement Measurements/Treatment - Nurse 1 - General Ulcer Assessment Start: 01/23/23 08:16 Freq: Status: Active Protocol: BRANDAN Activity Type Activity Date Activity User E-sign Co-sign Detail Recorded Client Recorded Date Recorded By Document 01/23/23 08:17 [facility] [id number] 01/23/23 08:26 [facility] Document 01/30/23 08:27 [facility] [id number] 01/30/23 08:33 [facility] 01/23/23 01/30/23 08:17 08:27 - Today's Visit Information Type of service Follow-up Visit Follow-up Visit (Physician/EMBEDDER (Physician/EMBEDDER ) ) Arrival Mode Ambulatory Ambulatory Transfer Assistance None None Patient Identification Verified (Name & Yes Yes ) Patient Requires Transmission-Based No No Precautions Height and Weight Body Mass Index (BMI) 22.3 22.3 BMI Classification Normal Normal Vital Signs Temperature (97.8 F-99.1 F) 97.9 F 99 F Temperature Source Temporal Temporal Pulse Rate (60-100) 67 72 Pulse Location Monitor Monitor Respiratory Rate (12-18) 18 18 Respiratory rate source Observation Observation Oxygen Delivery Method Room Air Blood Pressure (90/60-120/80) 116/58 L 115/62 Blood Pressure Mean (mm Hg) 77 79 Source Monitor Monitor Position Sitting Semi-Fowlers Blood Pressure Location Left Arm Left Arm History Since Last Visit- (Skip if this is Patient's initial visit) Have you changed medications since your No No last visit? Any new allergies or adverse reactions No No Had a fall/change in ADL's that may No No increase risk of falls Signs or symptoms of abuse and/or No No neglect since last visit Have you been in the hospital since your No No last visit? Has dressing in place as prescribed Yes Yes Has compression in place as prescribed N/A No Has offloadiing in place as prescribed N/A No Experienced any changes in pain level or No No management Left Footwear Regular Shoe Right Footwear Regular Shoe Pain Scale: 0-10 Numeric Is Patient Pain Free? Yes Yes WC - Nurse 1 - General Ulcer Measurement Start: 01/23/23 08:16 Freq: Status: Active Protocol: Activity Type Activity Date Activity User E-sign Co-sign Detail Recorded Client Recorded Date Recorded By Document 01/23/23 08:17 [facility] [id number] 01/23/23 08:26 BM Document 01/30/23 08:27 [facility] [id number] 01/30/23 08:33 BMF 01/23/23 01/30/23 08:17 08:27 Wound Center Nurse 1 #1 Chin -Combined with other wound No No -Current Size (cm) - Length 2.3 2.4 -Current Size (cm) - Width 2 1.9 -Current Size (cm) - Depth 0.3 0.2 -Total Square Cm 4.6 4.56 -Photo Taken No Yes -Epithelialization Small 1-33% -Tunneling No No -Undermining/Tunneling No No -Circular Undermining No No -Exudate Amt Medium Medium -Exudate Type Serous Serosanguineous -Wound Margin Distinct, Fibrotic Scar, Outline Thickened Scar Attached -Granulation Amt Small (1-33%) Medium (34-66%) -Granulation Quality [place] -Slough/Fibrin Yes Yes -Necrosis Amt Large (67-100%) Medium (34-66%) -Necrotic Tissue Type Adherent Slough Adherent Slough -Structure Exposed N/A -Texture (Candace-wound Skin Appearance) Assessed, Assessed Scarring -Moisture (Candace-wound Skin Appearance) Assessed Assessed -Color (Candace-wound Skin Appearance) Assessed Assessed, Erythema -Temperature (Candace-wound Skin No Abnormality No Abnormality Appearance) (Pt Warm) (Pt Warm) -Tenderness on Palpation (Candace-wound No No Skin Appearance) -Ulcer Cleansing Rinsed/ Rinsed/ Irrigated with Irrigated with Saline Saline -Foul Odor after Cleansing No No -Anesthetic Used 5% Lidocaine 5% Lidocaine Gel Gel WC - Nurse 2 - General Ulcer CM Notes Start: 01/23/23 08:16 Freq: Status: Active Protocol: Activity Type Activity Date Activity User E-sign Co-sign Detail Recorded Client Recorded Date Recorded By Document 01/23/23 08:48 MW [id number] 01/23/23 08:50 MW Document 01/30/23 08:46 MW [id number] 01/30/23 08:47 MW 01/23/23 01/30/23 08:48 08:46 Wound Center Nurse 2 #1 Chin -Time 08:48 08:46 -Correct Patient Yes Yes -Correct Side, Site, Position Yes Yes -Correct Procedure Yes Yes -Procedure Performed Yes Yes -Type of Procedure Debridement Debridement -Clinical Debridement Subcutaneous Subcutaneous -Tissue Removed Subcutaneous Subcutaneous -Post Debridement (cm) - Length 2.0 2.5 -Post Debridement (cm) - Width 2.3 2.0 -Post Debridement (cm) - Depth 0.5 0.5 -Total Square (Post) (cm) 4.60 5.00 -Area of Debridement (cm) - Length 2.0 2.5 -Area of Debridement (cm) - Width 2.3 2.0 -Total Square (Area) (cm) 4.60 5.00 -Tunneling No No -Undermining/Tunneling No No -Circular Undermining No No -Wound/Ulcer Outcome Not Healed Not Healed -Ulcer Cleansing Rinsed/ Rinsed/ Irrigated with Irrigated with Saline Saline -Foul Odor after Cleansing No No -Bioengineered Tissue No No -Bleeding Controlled with Pressure Pressure -Treatment Response Procedure Procedure Tolerated Well Tolerated Well -Offloading No No -Debridement - Subq, 1st 20sq cm Yes Yes Pain Scale: 0-10 Numeric Is Patient Pain Free? Yes Yes WC - Nurse 3 - General Ulcer D/C NN Start: 01/23/23 08:16 Freq: Status: Active Protocol: Activity Type Activity Date Activity User E-sign Co-sign Detail Recorded Client Recorded Date Recorded By Document 01/23/23 08:56 BMF [id number] 01/23/23 08:57 BM Document 01/30/23 08:47 MW [id number] 01/30/23 08:48 MW 01/23/23 01/30/23 08:56 08:47 Wound Care Center Nurse 3 #1 Chin -Ulcer Cleansing Rinsed/ Rinsed/ Irrigated with Irrigated with Saline Saline -Foul Odor after Cleansing No No -Negative Pressure Wound Therapy N/A -Primary Dressing Applied NonAdherent NonAdherent Contact Layer, Contact Layer, Promogran Promogran Ruth Matter Ruth Matter -Primary Dressing Covered/Secured with Dry Gauze, Dry Gauze Secured with Tape -Promogran Ruth Matter 1 1 Treatment Response Procedure Procedure Tolerated Well Tolerated Well Pain Scale: 0-10 Numeric Is Patient Pain Free? Yes Yes Teaching: Wound Center Dressing Your Wound -Person Taught Patient,Family -Teaching Method Discussion, Demonstration -Response to teaching Verbalize understanding WC - Visit Discharge Discharge Condition Stable Stable Ambulatory Status Ambulatory Ambulatory Transportation Private Auto Private Auto Accompanied by stefanie daughter Medication Reconcilliation completed & No provided to patient/care provider Clinical Summary of Care Provided Yes Assessment/Plan Assessment/Plan (1) Head and neck cancer: CODE(S): C76.0 - Malignant neoplasm of head, face and neck (2) Delayed surgical wound healing: CODE(S): T81.89XA - Other complications of procedures, not elsewhere classified, initial encounter QUALIFIERS: Encounter type: initial encounter Qualified Code(s): T81.89XA - Other complications of procedures, not elsewhere classified, initial encounter PLAN: Wash area with antibacterial soap and place Ruth and base cover with Adaptic gauze and paper tape daily dressings Finished antibiotics levofloxacin 500 mg daily for 14 days Follow-up in 1 week (3) Nonhealing surgical wound: CODE(S): T81.89XA - Other complications of procedures, not elsewhere classified, initial encounter QUALIFIERS: Encounter type: initial encounter Qualified Code(s): T81.89XA - Other complications of procedures, not elsewhere classified, initial encounter (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
[2023-02-06 08:18] VITALS: BP 115/58; PULSE 69; RESP 18; TEMP 36.9; BMI 22.3
--- NOTE | 2023-02-06 08:51 | PCM.WC.PN ---
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 He received courses of chemotherapy followed by radiation treatments, which were concluded by the end of 2017. He recently underwent oral surgery and had 8 teeth extracted. Two extraction sites have failed to heal. On November 07, 2021, the patient underwent reconstruction of the jaw using bone from his left lower leg. 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 Progress of Wound: The jaw wound itself is filling in nicely still gets a lot of contamination in that wound with an bacteria. Tolerating medication well next week he gets his G-tube pulled and next will be his trach. Wound appears smaller this week Subjective Subjective They like the looks of the wound and is filling in Objective Data Objective Data measuring smaller and T R side is flattening out and filling in nicely Vital Signs: Vital Signs Temp Pulse Resp BP O2 Del Method 98.5 F 69 18 115/58 L Room Air 02/06/23 08:18 02/06/23 08:18 02/06/23 08:18 02/06/23 08:18 02/06/23 08:18 Oxygen Delivery Method Room Air Weight: 130 lb Body Mass Index (BMI) 22.3 Physical Exam Narrative ECOG 1 Hard of hearing Const alert, oriented x3 and no apparent distress General Appearance: cooperative and comfortable HEENT normocephalic HEENT Narrative: Reconstruction of the lower face, soft tissue edema Mouth: No thrush Eyes General Eye: normal appearance of both eyes Conjunctiva: conjunctiva normal Sclera: sclera normal Neck no lymphadenopathy and no JVD Neck Narrative: Postoperative changes and flap. Wound is covered with surgical dressing General: tracheostomy present Lymph Lymphatic: no lymphadenopathy noted Chest Chest: symmetrical chest wall rise Resp Auscultation: diminished lung sounds bilateral and diffuse Cardio regular rate and regular rhythm Jugular Venous Distention: Negative for JVD GI soft to palpation, non-tender and non-distended; Negative for hepatosplenomegaly GI Narrative: PEG tube Inspection: GI tube present no CVA tenderness Back/Spine no thoracic nor lumbar tenderness Extremity General Extremity: Negative for clubbing, cyanosis or edema Skin no rashes or lesions noted Neuro oriented x3, CN's II-XII intact bilaterally and moves all extremities Neuro Narrative: Bilateral symmetric wasting of first interosseous muscles. Coordination / Balance: [id number] test normal Speech: speech abnormal Gait (Neuro): normal gait Psych mental status grossly normal, thought process normal, cooperative and affect normal Debridement Note Debridement Note Wound debrided: L jaw surgical wound non healing Type of Debridement: Excisional debridement Anesthesia Used: 5% Lidocaine Gel Depth: Down to and including healthy tissue Percentage of wound debrided: 100 Instrument Used: 5mm curette Tissue Removed: fibrin and product Severity: Fat Layer Exposed Amount of bleeding with debridement: Mild Bleeding Controlled with: Compression and gauze Patient tolerated procedure: Patient tolerated procedure well Post-Debridement Measurements and Additional Note: Post-Debridement Measurements/Treatment - Nurse 1 - General Ulcer Assessment Start: 01/23/23 08:16 Freq: Status: Active Protocol: BRANDAN Activity Type Activity Date Activity User E-sign Co-sign Detail Recorded Client Recorded Date Recorded By Document 01/23/23 08:17 [facility] [id number] 01/23/23 08:26 [facility] Document 01/30/23 08:27 [facility] [id number] 01/30/23 08:33 [facility] Document 02/06/23 08:18 [facility] [id number] 02/06/23 08:23 [facility] 01/23/23 01/30/23 02/06/23 08:17 08:27 08:18 - Today's Visit Information Type of service Follow-up Visit Follow-up Visit Follow-up Visit (Physician/ASSEMBLER CL[employer] SUNGL[employer]ES (Physician/ASSEMBLER [employer]ES (Physician/ASSEMBLER [employer] ) ) ) Arrival Mode Ambulatory Ambulatory Ambulatory Transfer Assistance None None None Accompanied by stefanie Patient Identification Verified (Name & Yes Yes Yes ) Patient Requires Transmission-Based No No No Precautions Height and Weight Body Mass Index (BMI) 22.3 22.3 22.3 BMI Classification Normal Normal Normal Vital Signs Temperature (97.8 F-99.1 F) 97.9 F 99 F 98.5 F Temperature Source Temporal Temporal Temporal Pulse Rate (60-100) 67 72 69 Pulse Location Monitor Monitor Monitor Respiratory Rate (12-18) 18 18 18 Respiratory rate source Observation Observation Observation Oxygen Delivery Method Room Air Room Air Blood Pressure (90/60-120/80) 116/58 L 115/62 115/58 L Blood Pressure Mean (mm Hg) 77 79 77 Source Monitor Monitor Monitor Position Sitting Semi-Fowlers Sitting Blood Pressure Location Left Arm Left Arm Left Arm History Since Last Visit- (Skip if this is Patient's initial visit) Have you changed medications since your No No No last visit? Any new allergies or adverse reactions No No No Had a fall/change in ADL's that may No No No increase risk of falls Signs or symptoms of abuse and/or No No No neglect since last visit Have you been in the hospital since your No No No last visit? Has dressing in place as prescribed Yes Yes Yes Has compression in place as prescribed N/A No N/A Has offloadiing in place as prescribed N/A No N/A Experienced any changes in pain level or No No No management Left Footwear Regular Shoe Regular Shoe Right Footwear Regular Shoe Regular Shoe Pain Scale: 0-10 Numeric Is Patient Pain Free? Yes Yes Yes WC - Nurse 1 - General Ulcer Measurement Start: 01/23/23 08:16 Freq: Status: Active Protocol: Activity Type Activity Date Activity User E-sign Co-sign Detail Recorded Client Recorded Date Recorded By Document 01/23/23 08:17 [facility] [id number] 01/23/23 08:26 [facility] Document 01/30/23 08:27 [facility] [id number] 01/30/23 08:33 [facility] Document 02/06/23 08:18 [facility] [id number] 02/06/23 08:23 [facility] 01/23/23 01/30/23 02/06/23 08:17 08:27 08:18 Wound Center Nurse 1 #1 Chin -Combined with other wound No No No -Current Size (cm) - Length 2.3 2.4 2.8 -Current Size (cm) - Width 2 1.9 2.3 -Current Size (cm) - Depth 0.3 0.2 0.2 -Total Square Cm 4.6 4.56 6.44 -Date of Last Picture (Recall this 02/06/23 field) -Photo Taken No Yes Yes -Epithelialization Small 1-33% None Present -Tunneling No No No -Undermining/Tunneling No No No -Circular Undermining No No No -Exudate Amt Medium Medium Medium -Exudate Type Serous Serosanguineous Serosanguineous -Wound Margin Distinct, Fibrotic Scar, Distinct, Outline Thickened Scar Outline Attached Attached -Granulation Amt Small (1-33%) Medium (34-66%) Small (1-33%) -Granulation Quality [place] -Slough/Fibrin Yes Yes Yes -Necrosis Amt Large (67-100%) Medium (34-66%) Large (67-100%) -Necrotic Tissue Type Adherent Slough Adherent Slough Adherent Slough -Structure Exposed N/A -Texture (Candace-wound Skin Appearance) Assessed, Assessed Assessed, Scarring Scarring -Moisture (Candace-wound Skin Appearance) Assessed Assessed Assessed -Color (Candace-wound Skin Appearance) Assessed Assessed, Assessed, Erythema Erythema -Temperature (Candace-wound Skin No Abnormality No Abnormality No Abnormality Appearance) (Pt Warm) (Pt Warm) (Pt Warm) -Tenderness on Palpation (Candace-wound No No No Skin Appearance) -Ulcer Cleansing Rinsed/ Rinsed/ Rinsed/ Irrigated with Irrigated with Irrigated with Saline Saline Saline -Foul Odor after Cleansing No No No -Anesthetic Used 5% Lidocaine 5% Lidocaine 5% Lidocaine Gel Gel Gel WC - Nurse 2 - General Ulcer CM Notes Start: 01/23/23 08:16 Freq: Status: Active Protocol: Activity Type Activity Date Activity User E-sign Co-sign Detail Recorded Client Recorded Date Recorded By Document 01/23/23 08:48 MW [id number] 01/23/23 08:50 MW Document 01/30/23 08:46 MW [id number] 01/30/23 08:47 MW Document 02/06/23 08:39 PL [id number] 02/06/23 08:40 PL 01/23/23 01/30/23 02/06/23 08:48 08:46 08:39 Wound Center Nurse 2 #1 Chin -Time 08:48 08:46 08:27 -Correct Patient Yes Yes Yes -Correct Side, Site, Position Yes Yes Yes -Correct Procedure Yes Yes Yes -Procedure Performed Yes Yes Yes -Type of Procedure Debridement Debridement Debridement -Clinical Debridement Subcutaneous Subcutaneous Subcutaneous -Tissue Removed Subcutaneous Subcutaneous Subcutaneous -Post Debridement (cm) - Length 2.0 2.5 2.5 -Post Debridement (cm) - Width 2.3 2.0 2.5 -Post Debridement (cm) - Depth 0.5 0.5 0.5 -Total Square (Post) (cm) 4.60 5.00 6.25 -Area of Debridement (cm) - Length 2.0 2.5 2.5 -Area of Debridement (cm) - Width 2.3 2.0 2.5 -Total Square (Area) (cm) 4.60 5.00 6.25 -Tunneling No No No -Undermining/Tunneling No No No -Circular Undermining No No No -Wound/Ulcer Outcome Not Healed Not Healed Not Healed -Ulcer Cleansing Rinsed/ Rinsed/ Rinsed/ Irrigated with Irrigated with Irrigated with Saline Saline Saline -Foul Odor after Cleansing No No No -Bioengineered Tissue No No No -Bleeding Controlled with Pressure Pressure Pressure -Treatment Response Procedure Procedure Procedure Tolerated Well Tolerated Well Tolerated Well -Offloading No No -Debridement - Subq, 1st 20sq cm Yes Yes Yes Pain Scale: 0-10 Numeric Is Patient Pain Free? Yes Yes Yes WC - Nurse 3 - General Ulcer D/C NN Start: 01/23/23 08:16 Freq: Status: Active Protocol: Activity Type Activity Date Activity User E-sign Co-sign Detail Recorded Client Recorded Date Recorded By Document 01/23/23 08:56 [facility] [id number] 01/23/23 08:57 BM Document 01/30/23 08:47 MW [id number] 01/30/23 08:48 MW Document 02/06/23 08:41 RB [id number] 02/06/23 08:41 RB 01/23/23 01/30/23 02/06/23 08:56 08:47 08:41 Wound Care Center Nurse 3 #1 Chin -Ulcer Cleansing Rinsed/ Rinsed/ Rinsed/ Irrigated with Irrigated with Irrigated with Saline Saline Saline -Foul Odor after Cleansing No No -Negative Pressure Wound Therapy N/A -Primary Dressing Applied NonAdherent NonAdherent NonAdherent Contact Layer, Contact Layer, Contact Layer, Promogran Promogran Promogran Urth Matter Ruth Matter Ruth Matter -Primary Dressing Covered/Secured with Dry Gauze, Dry Gauze Dry Gauze, Secured with Secured with Tape Tape -Other Covering silicone tape -Promogran Ruth Matter 1 1 1 Treatment Response Procedure Procedure Procedure Tolerated Well Tolerated Well Tolerated Well Pain Scale: 0-10 Numeric Is Patient Pain Free? Yes Yes Yes Teaching: Wound Center Dressing Your Wound -Person Taught Patient,Family -Teaching Method Discussion, Demonstration -Response to teaching Verbalize understanding WC - Visit Discharge Discharge Condition Stable Stable Stable Ambulatory Status Ambulatory Ambulatory Ambulatory Transportation Private Auto Private Auto Private Auto Accompanied by stefanie daughter Medication Reconcilliation completed & No No provided to patient/care provider Clinical Summary of Care Provided Yes Yes Assessment/Plan Assessment/Plan (1) Head and neck cancer: CODE(S): C76.0 - Malignant neoplasm of head, face and neck (2) Delayed surgical wound healing: CODE(S): T81.89XA - Other complications of procedures, not elsewhere classified, initial encounter QUALIFIERS: Encounter type: initial encounter Qualified Code(s): T81.89XA - Other complications of procedures, not elsewhere classified, initial encounter PLAN: Wash area with antibacterial soap and place Ruth and base cover with Adaptic gauze and paper tape daily dressings Follow-up in 1 week (3) Nonhealing surgical wound: CODE(S): T81.89XA - Other complications of procedures, not elsewhere classified, initial encounter QUALIFIERS: Encounter type: initial encounter Qualified Code(s): T81.89XA - Other complications of procedures, not elsewhere classified, initial encounter (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
[2023-02-13 08:33] VITALS: BP 126/64; PULSE 80; RESP 18; TEMP 37.1; BMI 22.3
--- NOTE | 2023-02-13 11:47 | PCM.WC.PN ---
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 He received courses of chemotherapy followed by radiation treatments, which were concluded by the end of 2017. He recently underwent oral surgery and had 8 teeth extracted. Two extraction sites have failed to heal. On November 07, 2021, the patient underwent reconstruction of the jaw using bone from his left lower leg. 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 Progress of Wound: The jaw wound itself is filling in nicely still gets a lot of contamination in that wound with an bacteria. Tolerating medication well next week he gets his G-tube pulled and next will be his trach. 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 Subjective Subjective Patient and daughter are very happy with outcomes Objective Data Objective Data Measuring smaller looks really good starting develop new skin cells in the base still has a depth Discussed with patient about using Bactroban in the base and then putting Ruth on top see if we can cut some of the infection. Did get cultures before starting Vital Signs: Vital Signs Temp Pulse Resp BP O2 Del Method 98.8 F 80 18 126/64 H Room Air 02/13/23 08:33 02/13/23 08:33 02/13/23 08:33 02/13/23 08:33 02/13/23 08:33 Oxygen Delivery Method Room Air Weight: 130 lb Body Mass Index (BMI) 22.3 Lab / Micro Data Attestation: I reviewed the patient's lab results. Physical Exam Narrative ECOG 1 Hard of hearing Const alert, oriented x3 and no apparent distress General Appearance: cooperative and comfortable HEENT normocephalic HEENT Narrative: Reconstruction of the lower face, soft tissue edema Mouth: No thrush Eyes General Eye: normal appearance of both eyes Conjunctiva: conjunctiva normal Sclera: sclera normal Neck no lymphadenopathy and no JVD Neck Narrative: Postoperative changes and flap. Wound is covered with surgical dressing General: tracheostomy present Lymph Lymphatic: no lymphadenopathy noted Chest Chest: symmetrical chest wall rise Resp Auscultation: diminished lung sounds bilateral and diffuse Cardio regular rate and regular rhythm Jugular Venous Distention: Negative for JVD GI soft to palpation, non-tender and non-distended; Negative for hepatosplenomegaly GI Narrative: PEG tube Inspection: GI tube present no CVA tenderness Back/Spine no thoracic nor lumbar tenderness Extremity General Extremity: Negative for clubbing, cyanosis or edema Skin no rashes or lesions noted Neuro oriented x3, CN's II-XII intact bilaterally and moves all extremities Neuro Narrative: Bilateral symmetric wasting of first interosseous muscles. Coordination / Balance: [id number] test normal Speech: speech abnormal Gait (Neuro): normal gait Psych mental status grossly normal, thought process normal, cooperative and affect normal Debridement Note Debridement Note Wound debrided: Nonhealing surgical wound for cancer on left jaw Type of Debridement: Excisional debridement Anesthesia Used: 5% Lidocaine Gel Depth: Down to and including healthy tissue and in the subcutaneous layer Percentage of wound debrided: 100 Instrument Used: 5mm curette Tissue Removed: Fibrin and devitalized tissue Severity: Limited To Skin Breakdown Amount of bleeding with debridement: Mild Bleeding Controlled with: Compression and gauze Patient tolerated procedure: Patient tolerated procedure well Post-Debridement Measurements and Additional Note: Post-Debridement Measurements/Treatment - Nurse 1 - General Ulcer Assessment Start: 01/23/23 08:16 Freq: Status: Active Protocol: BRANDAN Activity Type Activity Date Activity User E-sign Co-sign Detail Recorded Client Recorded Date Recorded By Document 01/23/23 08:17 [facility] [id number] 01/23/23 08:26 [facility] Document 01/30/23 08:27 [facility] [id number] 01/30/23 08:33 [facility] Document 02/06/23 08:18 [facility] [id number] 02/06/23 08:23 [facility] Document 02/13/23 08:33 [facility] [id number] 02/13/23 08:40 [facility] 01/23/23 01/30/23 02/06/23 08:17 08:27 08:18 - Today's Visit Information Type of service Follow-up Visit Follow-up Visit Follow-up Visit (Physician/DISTANCE LEARNING TECHNICIAN (Physician/DISTANCE LEARNING TECHNICIAN (Physician/DISTANCE LEARNING TECHNICIAN ) ) ) Arrival Mode Ambulatory Ambulatory Ambulatory Transfer Assistance None None None Accompanied by stefanie Patient Identification Verified (Name & Yes Yes Yes ) Patient Requires Transmission-Based No No No Precautions Height and Weight Body Mass Index (BMI) 22.3 22.3 22.3 BMI Classification Normal Normal Normal Vital Signs Temperature (97.8 F-99.1 F) 97.9 F 99 F 98.5 F Temperature Source Temporal Temporal Temporal Pulse Rate (60-100) 67 72 69 Pulse Location Monitor Monitor Monitor Respiratory Rate (12-18) 18 18 18 Respiratory rate source Observation Observation Observation Oxygen Delivery Method Room Air Room Air Blood Pressure (90/60-120/80) 116/58 L 115/62 115/58 L Blood Pressure Mean (mm Hg) 77 79 77 Source Monitor Monitor Monitor Position Sitting Semi-Fowlers Sitting Blood Pressure Location Left Arm Left Arm Left Arm History Since Last Visit- (Skip if this is Patient's initial visit) Have you changed medications since your No No No last visit? Any new allergies or adverse reactions No No No Had a fall/change in ADL's that may No No No increase risk of falls Signs or symptoms of abuse and/or No No No neglect since last visit Have you been in the hospital since your No No No last visit? Has dressing in place as prescribed Yes Yes Yes Has compression in place as prescribed N/A No N/A Has offloadiing in place as prescribed N/A No N/A Experienced any changes in pain level or No No No management Left Footwear Regular Shoe Regular Shoe Right Footwear Regular Shoe Regular Shoe Pain Scale: 0-10 Numeric Is Patient Pain Free? Yes Yes Yes 02/13/23 08:33 WC - Today's Visit Information Type of service Follow-up Visit (Physician/DISTANCE LEARNING TECHNICIAN ) Arrival Mode Ambulatory Transfer Assistance None Accompanied by stefanie Patient Identification Verified (Name & Yes ) Patient Requires Transmission-Based No Precautions Height and Weight Body Mass Index (BMI) 22.3 BMI Classification Normal Vital Signs Temperature (97.8 F-99.1 F) 98.8 F Temperature Source Temporal Pulse Rate (60-100) 80 Pulse Location Monitor Respiratory Rate (12-18) 18 Respiratory rate source Observation Oxygen Delivery Method Room Air Blood Pressure (90/60-120/80) 126/64 H Blood Pressure Mean (mm Hg) 84 Source Monitor Position Sitting Blood Pressure Location Left Arm History Since Last Visit- (Skip if this is Patient's initial visit) Have you changed medications since your No last visit? Any new allergies or adverse reactions No Had a fall/change in ADL's that may No increase risk of falls Signs or symptoms of abuse and/or No neglect since last visit Have you been in the hospital since your No last visit? Has dressing in place as prescribed Yes Has compression in place as prescribed N/A Has offloadiing in place as prescribed N/A Experienced any changes in pain level or No management Left Footwear Regular Shoe Right Footwear Regular Shoe Pain Scale: 0-10 Numeric Is Patient Pain Free? Yes WC - Nurse 1 - General Ulcer Measurement Start: 01/23/23 08:16 Freq: Status: Active Protocol: Activity Type Activity Date Activity User E-sign Co-sign Detail Recorded Client Recorded Date Recorded By Document 01/23/23 08:17 [facility] [id number] 01/23/23 08:26 [facility] Document 01/30/23 08:27 [facility] [id number] 01/30/23 08:33 [facility] Document 02/06/23 08:18 [facility] [id number] 02/06/23 08:23 [facility] Document 02/13/23 08:33 [facility] [id number] 02/13/23 08:40 [facility] 01/23/23 01/30/23 02/06/23 08:17 08:27 08:18 Wound Center Nurse 1 #1 Chin -Combined with other wound No No No -Current Size (cm) - Length 2.3 2.4 2.8 -Current Size (cm) - Width 2 1.9 2.3 -Current Size (cm) - Depth 0.3 0.2 0.2 -Total Square Cm 4.6 4.56 6.44 -Date of Last Picture (Recall this 02/06/23 field) -Photo Taken No Yes Yes -Epithelialization Small 1-33% None Present -Tunneling No No No -Undermining/Tunneling No No No -Circular Undermining No No No -Exudate Amt Medium Medium Medium -Exudate Type Serous Serosanguineous Serosanguineous -Wound Margin Distinct, Fibrotic Scar, Distinct, Outline Thickened Scar Outline Attached Attached -Granulation Amt Small (1-33%) Medium (34-66%) Small (1-33%) -Granulation Quality Blodgett Blodgett Red -Slough/Fibrin Yes Yes Yes -Necrosis Amt Large (67-100%) Medium (34-66%) Large (67-100%) -Necrotic Tissue Type Adherent Slough Adherent Slough Adherent Slough -Structure Exposed N/A -Texture (Candace-wound Skin Appearance) Assessed, Assessed Assessed, Scarring Scarring -Moisture (Candace-wound Skin Appearance) Assessed Assessed Assessed -Color (Candcae-wound Skin Appearance) Assessed Assessed, Assessed, Erythema Erythema -Temperature (Candace-wound Skin No Abnormality No Abnormality No Abnormality Appearance) (Pt Warm) (Pt Warm) (Pt Warm) -Tenderness on Palpation (Candace-wound No No No Skin Appearance) -Ulcer Cleansing Rinsed/ Rinsed/ Rinsed/ Irrigated with Irrigated with Irrigated with Saline Saline Saline -Foul Odor after Cleansing No No No -Anesthetic Used 5% Lidocaine 5% Lidocaine 5% Lidocaine Gel Gel Gel 02/13/23 08:33 Wound Center Nurse 1 #1 Chin -Combined with other wound No -Current Size (cm) - Length 3 -Current Size (cm) - Width 2.4 -Current Size (cm) - Depth 0.3 -Total Square Cm 7.2 -Date of Last Picture (Recall this 02/13/23 field) -Photo Taken Yes -Epithelialization None Present -Tunneling No -Undermining/Tunneling No -Circular Undermining No -Exudate Amt Medium -Exudate Type Serosanguineous -Wound Margin Distinct, Outline Attached -Granulation Amt None Present (0 %) -Granulation Quality -Slough/Fibrin Yes -Necrosis Amt Large (67-100%) -Necrotic Tissue Type Adherent Slough -Structure Exposed -Texture (Candace-wound Skin Appearance) Assessed, Scarring -Moisture (Candace-wound Skin Appearance) Assessed -Color (Candace-wound Skin Appearance) Assessed, Erythema -Temperature (Candace-wound Skin No Abnormality Appearance) (Pt Warm) -Tenderness on Palpation (Candace-wound No Skin Appearance) -Ulcer Cleansing Rinsed/ Irrigated with Saline -Foul Odor after Cleansing No -Anesthetic Used 5% Lidocaine Gel WC - Nurse 2 - General Ulcer CM Notes Start: 01/23/23 08:16 Freq: Status: Active Protocol: Activity Type Activity Date Activity User E-sign Co-sign Detail Recorded Client Recorded Date Recorded By Document 01/23/23 08:48 MW [id number] 01/23/23 08:50 MW Document 01/30/23 08:46 MW [id number] 01/30/23 08:47 MW Document 02/06/23 08:39 PL [id number] 02/06/23 08:40 PL Document 02/13/23 08:45 MW [id number] 02/13/23 08:52 MW 01/23/23 01/30/23 02/06/23 08:48 08:46 08:39 Wound Center Nurse 2 #1 Chin -Time 08:48 08:46 08:27 -Correct Patient Yes Yes Yes -Correct Side, Site, Position Yes Yes Yes -Correct Procedure Yes Yes Yes -Procedure Performed Yes Yes Yes -Type of Procedure Debridement Debridement Debridement -Clinical Debridement Subcutaneous Subcutaneous Subcutaneous -Tissue Removed Subcutaneous Subcutaneous Subcutaneous -Post Debridement (cm) - Length 2.0 2.5 2.5 -Post Debridement (cm) - Width 2.3 2.0 2.5 -Post Debridement (cm) - Depth 0.5 0.5 0.5 -Total Square (Post) (cm) 4.60 5.00 6.25 -Area of Debridement (cm) - Length 2.0 2.5 2.5 -Area of Debridement (cm) - Width 2.3 2.0 2.5 -Total Square (Area) (cm) 4.60 5.00 6.25 -Tunneling No No No -Undermining/Tunneling No No No -Circular Undermining No No No -Wound/Ulcer Outcome Not Healed Not Healed Not Healed -Ulcer Cleansing Rinsed/ Rinsed/ Rinsed/ Irrigated with Irrigated with Irrigated with Saline Saline Saline -Foul Odor after Cleansing No No No -Bioengineered Tissue No No No -Bleeding Controlled with Pressure Pressure Pressure -Treatment Response Procedure Procedure Procedure Tolerated Well Tolerated Well Tolerated Well -Offloading No No -Debridement - Subq, 1st 20sq cm Yes Yes Yes Pain Scale: 0-10 Numeric Is Patient Pain Free? Yes Yes Yes 02/13/23 08:45 Wound Center Nurse 2 #1 Chin -Time 08:46 -Correct Patient Yes -Correct Side, Site, Position Yes -Correct Procedure Yes -Procedure Performed Yes -Type of Procedure Debridement -Clinical Debridement Subcutaneous -Tissue Removed Subcutaneous -Post Debridement (cm) - Length 2.4 -Post Debridement (cm) - Width 1.3 -Post Debridement (cm) - Depth 0.5 -Total Square (Post) (cm) 3.12 -Area of Debridement (cm) - Length 2.4 -Area of Debridement (cm) - Width 1.3 -Total Square (Area) (cm) 3.12 -Tunneling No -Undermining/Tunneling No -Circular Undermining No -Wound/Ulcer Outcome Not Healed -Ulcer Cleansing Rinsed/ Irrigated with Saline -Foul Odor after Cleansing No -Bioengineered Tissue No -Bleeding Controlled with Pressure -Treatment Response Procedure Tolerated Well -Offloading No -Debridement - Subq, 1st 20sq cm Yes Pain Scale: 0-10 Numeric Is Patient Pain Free? Yes WC - Nurse 3 - General Ulcer D/C NN Start: 01/23/23 08:16 Freq: Status: Active Protocol: Activity Type Activity Date Activity User E-sign Co-sign Detail Recorded Client Recorded Date Recorded By Document 01/23/23 08:56 [facility] [id number] 01/23/23 08:57 [facility] Document 01/30/23 08:47 MW [id number] 01/30/23 08:48 MW Document 02/06/23 08:41 RB [id number] 02/06/23 08:41 RB Document 02/13/23 08:54 MW [id number] 02/13/23 08:54 MW 01/23/23 01/30/23 02/06/23 08:56 08:47 08:41 Wound Care Center Nurse 3 #1 Chin -Ulcer Cleansing Rinsed/ Rinsed/ Rinsed/ Irrigated with Irrigated with Irrigated with Saline Saline Saline -Foul Odor after Cleansing No No -Negative Pressure Wound Therapy N/A -Primary Dressing Applied NonAdherent NonAdherent NonAdherent Contact Layer, Contact Layer, Contact Layer, Promogran Promogran Promogran Ruth Matter Ruth Matter Ruth Matter -Other Dressing -Primary Dressing Covered/Secured with Dry Gauze, Dry Gauze Dry Gauze, Secured with Secured with Tape Tape -Other Covering silicone tape -Promogran Ruth Matter 1 1 1 Treatment Response Procedure Procedure Procedure Tolerated Well Tolerated Well Tolerated Well Pain Scale: 0-10 Numeric Is Patient Pain Free? Yes Yes Yes Teaching: Wound Center Dressing Your Wound -Person Taught Patient,Family -Teaching Method Discussion, Demonstration -Response to teaching Verbalize understanding WC - Visit Discharge Discharge Condition Stable Stable Stable Ambulatory Status Ambulatory Ambulatory Ambulatory Transportation Private Auto Private Auto Private Auto Accompanied by stefanie daughter Medication Reconcilliation completed & No No provided to patient/care provider Clinical Summary of Care Provided Yes Yes 02/13/23 08:54 Wound Care Center Nurse 3 #1 Chin -Ulcer Cleansing Rinsed/ Irrigated with Saline -Foul Odor after Cleansing No -Negative Pressure Wound Therapy N/A -Primary Dressing Applied Promogran Ruth Matter -Other Dressing bactroban -Primary Dressing Covered/Secured with Dry Gauze, Secured with Tape -Other Covering -Promogran Ruth Matter 1 Treatment Response Procedure Tolerated Well Pain Scale: 0-10 Numeric Is Patient Pain Free? Yes Teaching: Wound Center Dressing Your Wound -Person Taught Patient,Family -Teaching Method Discussion, Demonstration -Response to teaching Verbalize understanding WC - Visit Discharge Discharge Condition Stable Ambulatory Status Ambulatory Transportation Private Auto Accompanied by daughter Medication Reconcilliation completed & No provided to patient/care provider Clinical Summary of Care Provided Yes Assessment/Plan Assessment/Plan (1) Head and neck cancer: CODE(S): C76.0 - Malignant neoplasm of head, face and neck (2) Delayed surgical wound healing: CODE(S): T81.89XA - Other complications of procedures, not elsewhere classified, initial encounter QUALIFIERS: Encounter type: initial encounter Qualified Code(s): T81.89XA - Other complications of procedures, not elsewhere classified, initial encounter PLAN: Wash area with antibacterial soap and apply Bactroban to wound base nickel thickness then place Ruth and base cover with gauze and paper tape daily dressings Will call with culture results Follow-up in 1 week (3) Nonhealing surgical wound: CODE(S): T81.89XA - Other complications of procedures, not elsewhere classified, initial encounter QUALIFIERS: Encounter type: initial encounter Qualified Code(s): T81.89XA - Other complications of procedures, not elsewhere classified, initial encounter (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
[2023-02-20 08:46] VITALS: BP 126/60; PULSE 74; RESP 18; TEMP 36.4; BMI 22.3
--- NOTE | 2023-02-20 09:02 | PCM.WC.PN ---
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 He received courses of chemotherapy followed by radiation treatments, which were concluded by the end of 2017. He recently underwent oral surgery and had 8 teeth extracted. Two extraction sites have failed to heal. On November 07, 2021, the patient underwent reconstruction of the jaw using bone from his left lower leg. 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 Progress of Wound: The jaw wound itself is filling in nicely still gets a lot of contamination in that wound with an bacteria. 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 Patient was positive for cultures and patient will be started on doxycycline Subjective Subjective Very pleased with outcomes Objective Data Objective Data Doing well on the antibiotic he has been on since last Saturday and using the Bactroban with the Swetha over top doing well Vital Signs: Vital Signs Temp Pulse Resp BP O2 Del Method 97.5 F L 74 18 126/60 H Room Air 02/20/23 08:46 02/20/23 08:46 02/20/23 08:46 02/20/23 08:46 02/20/23 08:46 Oxygen Delivery Method Room Air Weight: 130 lb Body Mass Index (BMI) 22.3 Lab / Micro Data Attestation: I reviewed the patient's lab results. Micro: Microbiology 02/13/23 08:50 Wound Abcess - Face Gram Stain - Final 02/13/23 08:50 Wound Abcess - Face Wound Culture - Final Staphylococcus aureus 02/13/23 08:50 Wound Abcess - Face Anaerobic Culture - Final No anaerobic bacteria isolated. Physical Exam Narrative ECOG 1 Hard of hearing Const alert, oriented x3 and no apparent distress General Appearance: cooperative and comfortable HEENT normocephalic HEENT Narrative: Reconstruction of the lower face, soft tissue edema Mouth: No thrush Eyes General Eye: normal appearance of both eyes Conjunctiva: conjunctiva normal Sclera: sclera normal Neck no lymphadenopathy and no JVD Neck Narrative: Postoperative changes and flap. Wound is covered with surgical dressing General: tracheostomy present Lymph Lymphatic: no lymphadenopathy noted Chest Chest: symmetrical chest wall rise Resp Auscultation: diminished lung sounds bilateral and diffuse Cardio regular rate and regular rhythm Jugular Venous Distention: Negative for JVD GI soft to palpation, non-tender and non-distended; Negative for hepatosplenomegaly GI Narrative: PEG tube Inspection: GI tube present no CVA tenderness Back/Spine no thoracic nor lumbar tenderness Extremity General Extremity: Negative for clubbing, cyanosis or edema Skin no rashes or lesions noted Neuro oriented x3, CN's II-XII intact bilaterally and moves all extremities Neuro Narrative: Bilateral symmetric wasting of first interosseous muscles. Coordination / Balance: pmtooh-md-tbxq test normal Speech: speech abnormal Gait (Neuro): normal gait Psych mental status grossly normal, thought process normal, cooperative and affect normal Debridement Note Debridement Note Wound debrided: Left jaw surgical nonhealing from cancer Laterality: Left Type of Debridement: Excisional debridement Anesthesia Used: 5% Lidocaine Gel Depth: Down to and including healthy tissue Percentage of wound debrided: 100 Instrument Used: 5mm curette Tissue Removed: Fibrin Severity: Limited To Skin Breakdown Amount of bleeding with debridement: None Bleeding Controlled with: Compression and gauze Patient tolerated procedure: Patient tolerated procedure well Post-Debridement Measurements and Additional Note: Post-Debridement Measurements/Treatment - Nurse 1 - General Ulcer Assessment Start: 01/23/23 08:16 Freq: Status: Active Protocol: BRANDAN Activity Type Activity Date Activity User E-sign Co-sign Detail Recorded Client Recorded Date Recorded By Document 01/23/23 08:17 [facility] [id number] 01/23/23 08:26 [facility] Document 01/30/23 08:27 [facility] [id number] 01/30/23 08:33 [facility] Document 02/06/23 08:18 [facility] [id number] 02/06/23 08:23 [facility] Document 02/13/23 08:33 [facility] [id number] 02/13/23 08:40 [facility] Document 02/20/23 08:46 MW [id number] 02/20/23 08:49 MW 01/23/23 01/30/23 02/06/23 08:17 08:27 08:18 - Today's Visit Information Type of service Follow-up Visit Follow-up Visit Follow-up Visit (Physician/GENERAL PURCHASING AGENT (Physician/GENERAL PURCHASING AGENT (Physician/GENERAL PURCHASING AGENT ) ) ) Arrival Mode Ambulatory Ambulatory Ambulatory Transfer Assistance None None None Accompanied by stefanie Patient Identification Verified (Name & Yes Yes Yes ) Patient Requires Transmission-Based No No No Precautions Safety Precautions Height and Weight Body Mass Index (BMI) 22.3 22.3 22.3 BMI Classification Normal Normal Normal Vital Signs Temperature (97.8 F-99.1 F) 97.9 F 99 F 98.5 F Temperature Source Temporal Temporal Temporal Pulse Rate (60-100) 67 72 69 Pulse Location Monitor Monitor Monitor Respiratory Rate (12-18) 18 18 18 Respiratory rate source Observation Observation Observation Oxygen Delivery Method Room Air Room Air Blood Pressure (90/60-120/80) 116/58 L 115/62 115/58 L Blood Pressure Mean (mm Hg) 77 79 77 Source Monitor Monitor Monitor Position Sitting Semi-Fowlers Sitting Blood Pressure Location Left Arm Left Arm Left Arm History Since Last Visit- (Skip if this is Patient's initial visit) Have you changed medications since your No No No last visit? Any new allergies or adverse reactions No No No Had a fall/change in ADL's that may No No No increase risk of falls Signs or symptoms of abuse and/or No No No neglect since last visit Have you been in the hospital since your No No No last visit? Has dressing in place as prescribed Yes Yes Yes Has compression in place as prescribed N/A No N/A Has offloadiing in place as prescribed N/A No N/A Experienced any changes in pain level or No No No management Left Footwear Regular Shoe Regular Shoe Right Footwear Regular Shoe Regular Shoe Pain Scale: 0-10 Numeric Is Patient Pain Free? Yes Yes Yes 02/13/23 02/20/23 08:33 08:46 WC - Today's Visit Information Type of service Follow-up Visit Follow-up Visit (Physician/GENERAL PURCHASING AGENT (Physician/GENERAL PURCHASING AGENT ) ) Arrival Mode Ambulatory Ambulatory Transfer Assistance None None Accompanied by stefanie self Patient Identification Verified (Name & Yes Yes ) Patient Requires Transmission-Based No No Precautions Safety Precautions NA Height and Weight Body Mass Index (BMI) 22.3 22.3 BMI Classification Normal Normal Vital Signs Temperature (97.8 F-99.1 F) 98.8 F 97.5 F L Temperature Source Temporal Temporal Pulse Rate (60-100) 80 74 Pulse Location Monitor Monitor Respiratory Rate (12-18) 18 18 Respiratory rate source Observation Observation Oxygen Delivery Method Room Air Room Air Blood Pressure (90/60-120/80) 126/64 H 126/60 H Blood Pressure Mean (mm Hg) 84 82 Source Monitor Monitor Position Sitting Sitting Blood Pressure Location Left Arm Left Arm History Since Last Visit- (Skip if this is Patient's initial visit) Have you changed medications since your No No last visit? Any new allergies or adverse reactions No No Had a fall/change in ADL's that may No No increase risk of falls Signs or symptoms of abuse and/or No No neglect since last visit Have you been in the hospital since your No No last visit? Has dressing in place as prescribed Yes Yes Has compression in place as prescribed N/A N/A Has offloadiing in place as prescribed N/A N/A Experienced any changes in pain level or No No management Left Footwear Regular Shoe Regular Shoe Right Footwear Regular Shoe Regular Shoe Pain Scale: 0-10 Numeric Is Patient Pain Free? Yes Yes - Nurse 1 - General Ulcer Measurement Start: 01/23/23 08:16 Freq: Status: Active Protocol: Activity Type Activity Date Activity User E-sign Co-sign Detail Recorded Client Recorded Date Recorded By Document 01/23/23 08:17 [facility] [id number] 01/23/23 08:26 [facility] Document 01/30/23 08:27 [facility] [id number] 01/30/23 08:33 [facility] Document 02/06/23 08:18 [facility] [id number] 02/06/23 08:23 [facility] Document 02/13/23 08:33 [facility] [id number] 02/13/23 08:40 [facility] Document 02/20/23 08:46 MW [id number] 02/20/23 08:49 MW 01/23/23 01/30/23 02/06/23 08:17 08:27 08:18 Wound Center Nurse 1 #1 Chin -Combined with other wound No No No -Current Size (cm) - Length 2.3 2.4 2.8 -Current Size (cm) - Width 2 1.9 2.3 -Current Size (cm) - Depth 0.3 0.2 0.2 -Total Square Cm 4.6 4.56 6.44 -Date of Last Picture (Recall this 02/06/23 field) -Photo Taken No Yes Yes -Epithelialization Small 1-33% None Present -Tunneling No No No -Undermining/Tunneling No No No -Circular Undermining No No No -Exudate Amt Medium Medium Medium -Exudate Type Serous Serosanguineous Serosanguineous -Wound Margin Distinct, Fibrotic Scar, Distinct, Outline Thickened Scar Outline Attached Attached -Granulation Amt Small (1-33%) Medium (34-66%) Small (1-33%) -Granulation Quality [place] Red -Slough/Fibrin Yes Yes Yes -Necrosis Amt Large (67-100%) Medium (34-66%) Large (67-100%) -Necrotic Tissue Type Adherent Slough Adherent Slough Adherent Slough -Structure Exposed N/A -Texture (Candace-wound Skin Appearance) Assessed, Assessed Assessed, Scarring Scarring -Moisture (Candace-wound Skin Appearance) Assessed Assessed Assessed -Color (Candace-wound Skin Appearance) Assessed Assessed, Assessed, Erythema Erythema -Temperature (Candace-wound Skin No Abnormality No Abnormality No Abnormality Appearance) (Pt Warm) (Pt Warm) (Pt Warm) -Tenderness on Palpation (Candace-wound No No No Skin Appearance) -Ulcer Cleansing Rinsed/ Rinsed/ Rinsed/ Irrigated with Irrigated with Irrigated with Saline Saline Saline -Foul Odor after Cleansing No No No -Anesthetic Used 5% Lidocaine 5% Lidocaine 5% Lidocaine Gel Gel Gel Lower Limb Edema Present 02/13/23 02/20/23 08:33 08:46 Wound Center Nurse 1 #1 Chin -Combined with other wound No No -Current Size (cm) - Length 3 2.0 -Current Size (cm) - Width 2.4 1.8 -Current Size (cm) - Depth 0.3 0.2 -Total Square Cm 7.2 3.60 -Date of Last Picture (Recall this 02/13/23 field) -Photo Taken Yes No -Epithelialization None Present Small 1-33% -Tunneling No No -Undermining/Tunneling No No -Circular Undermining No No -Exudate Amt Medium Small -Exudate Type Serosanguineous Serosanguineous -Wound Margin Distinct, Fibrotic Scar, Outline Thickened Scar Attached -Granulation Amt None Present (0 Small (1-33%) %) -Granulation Quality [place] -Slough/Fibrin Yes Yes -Necrosis Amt Large (67-100%) Medium (34-66%) -Necrotic Tissue Type Adherent Slough Adherent Slough -Structure Exposed N/A -Texture (Candace-wound Skin Appearance) Assessed, Assessed, Scarring Excoriation, Scarring -Moisture (Candace-wound Skin Appearance) Assessed Assessed -Color (Candace-wound Skin Appearance) Assessed, No Abnormality, Erythema Assessed -Temperature (Candace-wound Skin No Abnormality No Abnormality Appearance) (Pt Warm) (Pt Warm) -Tenderness on Palpation (Candace-wound No No Skin Appearance) -Ulcer Cleansing Rinsed/ Rinsed/ Irrigated with Irrigated with Saline Saline -Foul Odor after Cleansing No No -Anesthetic Used 5% Lidocaine 5% Lidocaine Gel Gel Lower Limb Edema Present No WC - Nurse 2 - General Ulcer CM Notes Start: 01/23/23 08:16 Freq: Status: Active Protocol: Activity Type Activity Date Activity User E-sign Co-sign Detail Recorded Client Recorded Date Recorded By Document 01/23/23 08:48 MW [id number] 01/23/23 08:50 MW Document 01/30/23 08:46 MW [id number] 01/30/23 08:47 MW Document 02/06/23 08:39 PL [id number] 02/06/23 08:40 PL Document 02/13/23 08:45 MW [id number] 02/13/23 08:52 MW Document 02/20/23 08:49 MW [id number] 02/20/23 08:55 MW 01/23/23 01/30/23 02/06/23 08:48 08:46 08:39 Wound Center Nurse 2 #1 Chin -Time 08:48 08:46 08:27 -Correct Patient Yes Yes Yes -Correct Side, Site, Position Yes Yes Yes -Correct Procedure Yes Yes Yes -Procedure Performed Yes Yes Yes -Type of Procedure Debridement Debridement Debridement -Clinical Debridement Subcutaneous Subcutaneous Subcutaneous -Tissue Removed Subcutaneous Subcutaneous Subcutaneous -Post Debridement (cm) - Length 2.0 2.5 2.5 -Post Debridement (cm) - Width 2.3 2.0 2.5 -Post Debridement (cm) - Depth 0.5 0.5 0.5 -Total Square (Post) (cm) 4.60 5.00 6.25 -Area of Debridement (cm) - Length 2.0 2.5 2.5 -Area of Debridement (cm) - Width 2.3 2.0 2.5 -Total Square (Area) (cm) 4.60 5.00 6.25 -Tunneling No No No -Undermining/Tunneling No No No -Circular Undermining No No No -Wound/Ulcer Outcome Not Healed Not Healed Not Healed -Ulcer Cleansing Rinsed/ Rinsed/ Rinsed/ Irrigated with Irrigated with Irrigated with Saline Saline Saline -Foul Odor after Cleansing No No No -Bioengineered Tissue No No No -Bleeding Controlled with Pressure Pressure Pressure -Treatment Response Procedure Procedure Procedure Tolerated Well Tolerated Well Tolerated Well -Offloading No No -Debridement - Subq, 1st 20sq cm Yes Yes Yes Pain Scale: 0-10 Numeric Is Patient Pain Free? Yes Yes Yes 02/13/23 02/20/23 08:45 08:49 Wound Center Nurse 2 #1 Chin -Time 08:46 08:53 -Correct Patient Yes Yes -Correct Side, Site, Position Yes Yes -Correct Procedure Yes Yes -Procedure Performed Yes Yes -Type of Procedure Debridement Debridement -Clinical Debridement Subcutaneous Subcutaneous -Tissue Removed Subcutaneous Subcutaneous -Post Debridement (cm) - Length 2.4 2.3 -Post Debridement (cm) - Width 1.3 1.5 -Post Debridement (cm) - Depth 0.5 0.5 -Total Square (Post) (cm) 3.12 3.45 -Area of Debridement (cm) - Length 2.4 2.3 -Area of Debridement (cm) - Width 1.3 1.5 -Total Square (Area) (cm) 3.12 3.45 -Tunneling No No -Undermining/Tunneling No No -Circular Undermining No No -Wound/Ulcer Outcome Not Healed Not Healed -Ulcer Cleansing Rinsed/ Rinsed/ Irrigated with Irrigated with Saline Saline -Foul Odor after Cleansing No No -Bioengineered Tissue No No -Bleeding Controlled with Pressure Pressure -Treatment Response Procedure Procedure Tolerated Well Tolerated Well -Offloading No No -Debridement - Subq, 1st 20sq cm Yes Yes Pain Scale: 0-10 Numeric Is Patient Pain Free? Yes Yes WC - Nurse 3 - General Ulcer D/C NN Start: 01/23/23 08:16 Freq: Status: Active Protocol: Activity Type Activity Date Activity User E-sign Co-sign Detail Recorded Client Recorded Date Recorded By Document 01/23/23 08:56 BMF [id number] 01/23/23 08:57 BMF Document 01/30/23 08:47 MW [id number] 01/30/23 08:48 MW Document 02/06/23 08:41 RB [id number] 02/06/23 08:41 RB Document 02/13/23 08:54 MW [id number] 02/13/23 08:54 MW Document 02/20/23 08:55 MW [id number] 02/20/23 08:56 MW 01/23/23 01/30/23 02/06/23 08:56 08:47 08:41 Wound Care Center Nurse 3 #1 Chin -Ulcer Cleansing Rinsed/ Rinsed/ Rinsed/ Irrigated with Irrigated with Irrigated with Saline Saline Saline -Foul Odor after Cleansing No No -Negative Pressure Wound Therapy N/A -Primary Dressing Applied NonAdherent NonAdherent NonAdherent Contact Layer, Contact Layer, Contact Layer, Promogran Promogran Promogran Swetha Matter Swetha Matter Swetha Matter -Other Dressing -Primary Dressing Covered/Secured with Dry Gauze, Dry Gauze Dry Gauze, Secured with Secured with Tape Tape -Other Covering silicone tape -Promogran Swetha Matter 1 1 1 Treatment Response Procedure Procedure Procedure Tolerated Well Tolerated Well Tolerated Well Pain Scale: 0-10 Numeric Is Patient Pain Free? Yes Yes Yes Teaching: Wound Center Dressing Your Wound -Person Taught Patient,Family -Teaching Method Discussion, Demonstration -Response to teaching Verbalize understanding WC - Visit Discharge Discharge Condition Stable Stable Stable Ambulatory Status Ambulatory Ambulatory Ambulatory Transportation Private Auto Private Auto Private Auto Accompanied by stefanie daughter Medication Reconcilliation completed & No No provided to patient/care provider Clinical Summary of Care Provided Yes Yes 02/13/23 02/20/23 08:54 08:55 Wound Care Center Nurse 3 #1 Chin -Ulcer Cleansing Rinsed/ Rinsed/ Irrigated with Irrigated with Saline Saline -Foul Odor after Cleansing No No -Negative Pressure Wound Therapy N/A N/A -Primary Dressing Applied Promogran Swetha Matter -Other Dressing bactroban bactroban, swetha -Primary Dressing Covered/Secured with Dry Gauze, Dry Gauze, Secured with Secured with Tape Tape -Other Covering -Promogran Swetha Matter 1 Treatment Response Procedure Procedure Tolerated Well Tolerated Well Pain Scale: 0-10 Numeric Is Patient Pain Free? Yes Yes Teaching: Wound Center Dressing Your Wound -Person Taught Patient,Family Patient -Teaching Method Discussion, Discussion Demonstration -Response to teaching Verbalize Verbalize understanding understanding WC - Visit Discharge Discharge Condition Stable Stable Ambulatory Status Ambulatory Ambulatory Transportation Private Auto Private Auto Accompanied by daughter self Medication Reconcilliation completed & No No provided to patient/care provider Clinical Summary of Care Provided Yes Yes Assessment/Plan Assessment/Plan (1) Head and neck cancer: CODE(S): C76.0 - Malignant neoplasm of head, face and neck (2) Delayed surgical wound healing: CODE(S): T81.89XA - Other complications of procedures, not elsewhere classified, initial encounter QUALIFIERS: Encounter type: initial encounter Qualified Code(s): T81.89XA - Other complications of procedures, not elsewhere classified, initial encounter PLAN: Wash area with antibacterial soap and apply Bactroban to wound base nickel thickness then place Swetha and base cover with gauze and paper tape daily dressings Started doxycycline 100 mg twice a day for 14 days Follow-up in 1 week (3) Nonhealing surgical wound: CODE(S): T81.89XA - Other complications of procedures, not elsewhere classified, initial encounter QUALIFIERS: Encounter type: initial encounter Qualified Code(s): T81.89XA - Other complications of procedures, not elsewhere classified, initial encounter (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
== END 2023-02-20 23:59 | disposition home or self-care (01) ==
LOC: WC 08:45
PROVIDERS: PCP Nurse Practitioner; Referring Provider Nurse Practitioner; Visit Provider Nurse Practitioner
DX: T81.89XA Other complications of procedures, not elsewhere classified, initial encounter (principal); Z93.0 Tracheostomy status; C76.0 Malignant neoplasm of head, face and neck; L59.8 Other specified disorders of the skin and subcutaneous tissue related to radiation; Y84.2 Radiological procedure and radiotherapy as the cause of abnormal reaction of the patient, or of later complication, without mention of misadventure at the time of the procedure; Z92.3 Personal history of irradiation; Z92.21 Personal history of antineoplastic chemotherapy; Z85.89 Personal history of malignant neoplasm of other organs and systems; Z79.890 Hormone replacement therapy; Z79.899 Other long term (current) drug therapy
CPT/HCPCS: 11042; 87070; 87075; 87077; 87186; 87205

== ENCOUNTER 2023-03-20 09:15 | Outpatient (RCR) | payer OTHER, SELFPAY ==
[2022-01-31 09:09] VITALS: BMI 22.6
[2023-02-21 00:25] VITALS: BP 126/60; PULSE 74; RESP 18; TEMP 36.4; BMI 22.3
--- NOTE | 2023-02-27 10:03 | PN.PCM_ITS ---
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 He received courses of chemotherapy followed by radiation treatments, which were concluded by the end of 2017. He recently underwent oral surgery and had 8 teeth extracted. Two extraction sites have failed to heal. On November 07, 2021, the patient underwent reconstruction of the jaw using bone from his left lower leg. He now has a chronic, non-healing surgical wound in the left sub- mandibular area. Progress of Wound: The wound has really taken a jump start this week with getting more shallow and is very small area that is actually open. Still has the hollowness and that is were working but it is filling in nicely. Saw his surgeon and she was impressed that it looks a lot better. Subjective Subjective Patient is very pleased with outcomes Objective Data Objective Data Treatments are smaller patient is finishing up his antibiotics that we put him on for infection. Wound itself looks very good Vital Signs: Vital Signs Temp Pulse Resp BP 97.5 F L 74 18 126/60 H 02/21/23 00:25 02/21/23 00:25 02/21/23 00:25 02/21/23 00:25 Weight: 130 lb Body Mass Index (BMI) 22.3 Lab / Micro Data Attestation: I reviewed the patient's lab results. Physical Exam Narrative ECOG 1 Hard of hearing Const alert, oriented x3 and no apparent distress General Appearance: cooperative and comfortable HEENT normocephalic HEENT Narrative: Reconstruction of the lower face, soft tissue edema Mouth: No thrush Eyes General Eye: normal appearance of both eyes Conjunctiva: conjunctiva normal Sclera: sclera normal Neck no lymphadenopathy and no JVD Neck Narrative: Postoperative changes and flap. Wound is covered with surgical dressing General: tracheostomy present Lymph Lymphatic: no lymphadenopathy noted Chest Chest: symmetrical chest wall rise Resp Auscultation: diminished lung sounds bilateral and diffuse Cardio regular rate and regular rhythm Jugular Venous Distention: Negative for JVD GI soft to palpation, non-tender and non-distended; Negative for hepatosplenomegaly GI Narrative: PEG tube Inspection: GI tube present no CVA tenderness Back/Spine no thoracic nor lumbar tenderness Extremity General Extremity: Negative for clubbing, cyanosis or edema Skin no rashes or lesions noted Neuro oriented x3, CN's II-XII intact bilaterally and moves all extremities Neuro Narrative: Bilateral symmetric wasting of first interosseous muscles. Coordination / Balance: [id number] test normal Speech: speech abnormal Gait (Neuro): normal gait Psych mental status grossly normal, thought process normal, cooperative and affect normal Debridement Note Debridement Note Wound debrided: Left jaw nonhealing surgical wound nonpressure Type of Debridement: Excisional debridement Anesthesia Used: 5% Lidocaine Gel Depth: Down to and including healthy tissue Percentage of wound debrided: 100 Instrument Used: 3mm curette Tissue Removed: Fibrin and some slough Severity: Limited To Skin Breakdown Amount of bleeding with debridement: Mild Bleeding Controlled with: Compression and gauze Patient tolerated procedure: Patient tolerated procedure well Post-Debridement Measurements and Additional Note: Post-Debridement Measurements/Treatment WC - Nurse 2 - General Ulcer CM Notes Start: 02/27/23 09:26 Freq: Status: Active Protocol: Activity Type Activity Date Activity User E-sign Co-sign Detail Recorded Client Recorded Date Recorded By Document 02/27/23 09:27 MW Desktop 02/27/23 09:27 MW 02/27/23 09:27 Wound Center Nurse 2 #1 Chin -Time 09:27 -Correct Patient Yes -Correct Side, Site, Position Yes -Correct Procedure Yes -Procedure Performed Yes -Type of Procedure Debridement -Clinical Debridement Subcutaneous -Tissue Removed Subcutaneous -Post Debridement (cm) - Length 2.0 -Post Debridement (cm) - Width 1.8 -Post Debridement (cm) - Depth 0.4 -Total Square (Post) (cm) 3.60 -Area of Debridement (cm) - Length 2.0 -Area of Debridement (cm) - Width 1.8 -Total Square (Area) (cm) 3.60 -Tunneling No -Undermining/Tunneling No -Circular Undermining No -Wound/Ulcer Outcome Not Healed -Ulcer Cleansing Rinsed/ Irrigated with Saline -Foul Odor after Cleansing No -Bioengineered Tissue No -Bleeding Controlled with Pressure -Treatment Response Procedure Tolerated Well -Offloading No -Debridement - Subq, 1st 20sq cm Yes Pain Scale: 0-10 Numeric Is Patient Pain Free? Yes WC - Nurse 3 - General Ulcer D/C NN Start: 02/27/23 09:26 Freq: Status: Active Protocol: Activity Type Activity Date Activity User E-sign Co-sign Detail Recorded Client Recorded Date Recorded By Document 02/27/23 09:30 MW Desktop 02/27/23 09:31 MW 02/27/23 09:30 Wound Care Center Nurse 3 #1 Chin -Ulcer Cleansing Rinsed/ Irrigated with Saline -Foul Odor after Cleansing No -Negative Pressure Wound Therapy N/A -Primary Dressing Applied Promogran Ruth Matter -Other Dressing bactroban -Primary Dressing Covered/Secured with Dry Gauze, Secured with Tape -Promogran Ruth Matter 1 Treatment Response Procedure Tolerated Well Pain Scale: 0-10 Numeric Is Patient Pain Free? Yes WC - Visit Discharge Discharge Condition Stable Ambulatory Status Ambulatory Transportation Private Auto Accompanied by self Medication Reconcilliation completed & No provided to patient/care provider Clinical Summary of Care Provided Yes Assessment/Plan Assessment/Plan (1) Head and neck cancer: CODE(S): C76.0 - Malignant neoplasm of head, face and neck (2) Delayed surgical wound healing: CODE(S): T81.89XA - Other complications of procedures, not elsewhere classified, initial encounter QUALIFIERS: Encounter type: initial encounter Qualified Code(s): T81.89XA - Other complications of procedures, not elsewhere classified, initial encounter PLAN: Wash area with antibacterial soap and apply Bactroban to wound base nickel thickness then place Ruth and base cover with gauze and paper tape daily dressings Finish doxycycline 100 mg twice a day for 14 days Follow-up in 1 week (3) Nonhealing surgical wound: CODE(S): T81.89XA - Other complications of procedures, not elsewhere classified, initial encounter QUALIFIERS: Encounter type: initial encounter Qualified Code(s): T81.89XA - Other complications of procedures, not elsewhere classified, initial encounter (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
[2023-02-27 10:23] VITALS: BP 106/64; PULSE 71; TEMP 36.3; BMI 22.3
[2023-03-06 11:03] VITALS: BP 138/69; PULSE 63; RESP 16; TEMP 36.3; BMI 22.3
--- NOTE | 2023-03-06 11:35 | PCM.WC.PN ---
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 He received courses of chemotherapy followed by radiation treatments, which were concluded by the end of 2017. He recently underwent oral surgery and had 8 teeth extracted. Two extraction sites have failed to heal. On November 07, 2021, the patient underwent reconstruction of the jaw using bone from his left lower leg. 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 Progress of Wound: The wound is doing very well this week again measurements are smaller we can try fibrin call this week rather than the Ruth I do not think he needs the silver anymore. We will continue using the Bactroban on the base and then wet the Fibracol on top and then cover with gauze dressing and see how he does in a week Subjective Subjective Patient is okay with outcomes Objective Data Objective Data Again no sign of infection looks good we will try changing from Ruth to Fibracol Vital Signs: Vital Signs Temp Pulse Resp BP O2 Del Method 97.3 F L 63 16 138/69 H Room Air 03/06/23 11:03 03/06/23 11:03 03/06/23 11:03 03/06/23 11:03 03/06/23 11:03 Oxygen Delivery Method Room Air Weight: 130 lb Body Mass Index (BMI) 22.3 Physical Exam Narrative ECOG 1 Hard of hearing Const alert, oriented x3 and no apparent distress General Appearance: cooperative and comfortable HEENT normocephalic HEENT Narrative: Reconstruction of the lower face, soft tissue edema Mouth: No thrush Eyes General Eye: normal appearance of both eyes Conjunctiva: conjunctiva normal Sclera: sclera normal Neck no lymphadenopathy and no JVD Neck Narrative: Postoperative changes and flap. Wound is covered with surgical dressing General: tracheostomy present Lymph Lymphatic: no lymphadenopathy noted Chest Chest: symmetrical chest wall rise Resp Auscultation: diminished lung sounds bilateral and diffuse Cardio regular rate and regular rhythm Jugular Venous Distention: Negative for JVD GI soft to palpation, non-tender and non-distended; Negative for hepatosplenomegaly GI Narrative: PEG tube Inspection: GI tube present no CVA tenderness Back/Spine no thoracic nor lumbar tenderness Extremity General Extremity: Negative for clubbing, cyanosis or edema Skin no rashes or lesions noted Neuro oriented x3, CN's II-XII intact bilaterally and moves all extremities Neuro Narrative: Bilateral symmetric wasting of first interosseous muscles. Coordination / Balance: [id number] test normal Speech: speech abnormal Gait (Neuro): normal gait Psych mental status grossly normal, thought process normal, cooperative and affect normal Debridement Note Debridement Note Wound debrided: Left jaw nonhealing surgical opening from cancer Type of Debridement: Excisional debridement Anesthesia Used: 5% Lidocaine Gel Depth: Down to and including healthy tissue Percentage of wound debrided: 100 Instrument Used: 5mm curette Tissue Removed: Fibrin and some devitalized tissue Severity: Limited To Skin Breakdown Amount of bleeding with debridement: Mild Bleeding Controlled with: Compression and gauze Patient tolerated procedure: Patient tolerated procedure well Post-Debridement Measurements and Additional Note: Post-Debridement Measurements/Treatment - Nurse 1 - General Ulcer Assessment Start: 02/27/23 09:26 Freq: Status: Active Protocol: AB Activity Type Activity Date Activity User E-sign Co-sign Detail Recorded Client Recorded Date Recorded By Document 02/27/23 10:23 [place] [id number] 02/27/23 10:25 [place] Document 03/06/23 11:03 [facility] [id number] 03/06/23 11:07 [facility] 02/27/23 03/06/23 10:23 11:03 - Today's Visit Information Type of service Follow-up Visit Follow-up Visit (Physician/TRANSFERRER (Physician/TRANSFERRER ) ) Arrival Mode Ambulatory Ambulatory Transfer Assistance None Patient Identification Verified (Name & No Yes ) Patient Requires Transmission-Based No No Precautions Height and Weight Body Mass Index (BMI) 22.3 22.3 BMI Classification Normal Normal Vital Signs Temperature (97.8 F-99.1 F) 97.3 F L 97.3 F L Temperature Source Temporal Temporal Pulse Rate (60-100) 71 63 Pulse Location Monitor Monitor Respiratory Rate (12-18) 16 Respiratory rate source Observation Oxygen Delivery Method Room Air Blood Pressure (90/60-120/80) 106/64 138/69 H Blood Pressure Mean (mm Hg) 78 92 Source Monitor Monitor Position Sitting Blood Pressure Location Left Arm History Since Last Visit- (Skip if this is Patient's initial visit) Have you changed medications since your No No last visit? Any new allergies or adverse reactions No No Had a fall/change in ADL's that may No No increase risk of falls Signs or symptoms of abuse and/or No No neglect since last visit Have you been in the hospital since your No No last visit? Has dressing in place as prescribed Yes Yes Has compression in place as prescribed N/A N/A Has offloadiing in place as prescribed N/A N/A Experienced any changes in pain level or No No management Left Footwear Regular Shoe Regular Shoe Right Footwear Regular Shoe Regular Shoe Pain Scale: 0-10 Numeric Is Patient Pain Free? Yes Yes WC - Nurse 1 - General Ulcer Measurement Start: 02/27/23 09:26 Freq: Status: Active Protocol: Activity Type Activity Date Activity User E-sign Co-sign Detail Recorded Client Recorded Date Recorded By Document 02/27/23 10:23 SHANTELL [id number] 02/27/23 10:25 [place] Document 03/06/23 11:03 [facility] [id number] 03/06/23 11:07 [facility] 02/27/23 03/06/23 10:23 11:03 Wound Center Nurse 1 #1 Chin -Combined with other wound No No -Current Size (cm) - Length 2 1.9 -Current Size (cm) - Width 1.5 1.8 -Current Size (cm) - Depth 0.1 0.1 -Total Square Cm 3.0 3.42 -Date of Last Picture (Recall this 03/06/23 field) -Photo Taken Yes Yes -Epithelialization Small 1-33% -Tunneling No No -Undermining/Tunneling No No -Circular Undermining No No -Change in Wound Grade/Stage No -Exudate Amt Large Medium -Exudate Type Yellow/Green Serosanguineous -Wound Margin Distinct, Distinct, Outline Outline Attached Attached -Granulation Amt Small (1-33%) Small (1-33%) -Granulation Quality Pale,[place] Red -Slough/Fibrin Yes Yes -Necrosis Amt Large (67-100%) Large (67-100%) -Necrotic Tissue Type Adherent Slough Adherent Slough -Structure Exposed N/A -Texture (Candace-wound Skin Appearance) No Abnormality, Assessed, Assessed Scarring -Moisture (Candace-wound Skin Appearance) No Abnormality, Assessed Assessed -Color (Candace-wound Skin Appearance) No Abnormality, Assessed Assessed -Temperature (Candace-wound Skin No Abnormality No Abnormality Appearance) (Pt Warm) (Pt Warm) -Tenderness on Palpation (Candace-wound No No Skin Appearance) -Ulcer Cleansing Rinsed/ Irrigated with Saline -Foul Odor after Cleansing No Yes, Due to Product Use -Anesthetic Used 4% Lidocaine 5% Lidocaine Solution Gel WC - Nurse 2 - General Ulcer CM Notes Start: 02/27/23 09:26 Freq: Status: Active Protocol: Activity Type Activity Date Activity User E-sign Co-sign Detail Recorded Client Recorded Date Recorded By Document 02/27/23 09:27 MW Desktop 02/27/23 09:27 MW Document 03/06/23 11:10 MW [id number] 03/06/23 11:25 MW 02/27/23 03/06/23 09:27 11:10 Wound Center Nurse 2 #1 Chin -Time 09:27 11:10 -Correct Patient Yes Yes -Correct Side, Site, Position Yes Yes -Correct Procedure Yes Yes -Procedure Performed Yes Yes -Type of Procedure Debridement Debridement -Clinical Debridement Subcutaneous Subcutaneous -Tissue Removed Subcutaneous Subcutaneous -Post Debridement (cm) - Length 2.0 2.5 -Post Debridement (cm) - Width 1.8 1.5 -Post Debridement (cm) - Depth 0.4 0.3 -Total Square (Post) (cm) 3.60 3.75 -Area of Debridement (cm) - Length 2.0 2.5 -Area of Debridement (cm) - Width 1.8 1.5 -Total Square (Area) (cm) 3.60 3.75 -Tunneling No No -Undermining/Tunneling No No -Circular Undermining No No -Wound/Ulcer Outcome Not Healed Not Healed -Ulcer Cleansing Rinsed/ Rinsed/ Irrigated with Irrigated with Saline Saline -Foul Odor after Cleansing No No -Bioengineered Tissue No No -Bleeding Controlled with Pressure Pressure -Treatment Response Procedure Procedure Tolerated Well Tolerated Well -Offloading No No -Debridement - Subq, 1st 20sq cm Yes Yes Pain Scale: 0-10 Numeric Is Patient Pain Free? Yes Yes DHAVAL - Nurse 3 - General Ulcer D/C NN Start: 02/27/23 09:26 Freq: Status: Active Protocol: Activity Type Activity Date Activity User E-sign Co-sign Detail Recorded Client Recorded Date Recorded By Document 06/07/23 09:30 MW Desktop 02/27/23 09:31 MW Document 03/06/23 11:20 MW [id number] 03/06/23 11:29 MW 02/27/23 03/06/23 09:30 11:20 Wound Care Center Nurse 3 #1 Chin -Ulcer Cleansing Rinsed/ Rinsed/ Irrigated with Irrigated with Saline Saline -Foul Odor after Cleansing No No -Negative Pressure Wound Therapy N/A N/A -Primary Dressing Applied Promogran Fibracol Plus Ruth Matter 4x4 -Other Dressing bactroban -Primary Dressing Covered/Secured with Dry Gauze, Dry Gauze, Secured with Secured with Tape Tape -Fibracol Plus 4x4 1 -Promogran Ruth Matter 1 Treatment Response Procedure Procedure Tolerated Well Tolerated Well Pain Scale: 0-10 Numeric Is Patient Pain Free? Yes Yes Teaching: Wound Center Dressing Your Wound -Person Taught Patient -Teaching Method Discussion, Demonstration -Response to teaching Verbalize understanding WC - Visit Discharge Discharge Condition Stable Stable Ambulatory Status Ambulatory Ambulatory Transportation Private Auto Private Auto Accompanied by self self Medication Reconcilliation completed & No No provided to patient/care provider Clinical Summary of Care Provided Yes Yes Assessment/Plan Assessment/Plan (1) Head and neck cancer: CODE(S): C76.0 - Malignant neoplasm of head, face and neck (2) Delayed surgical wound healing: CODE(S): T81.89XA - Other complications of procedures, not elsewhere classified, initial encounter QUALIFIERS: Encounter type: initial encounter Qualified Code(s): T81.89XA - Other complications of procedures, not elsewhere classified, initial encounter PLAN: Wash area with antibacterial soap and apply Bactroban to wound base nickel thickness then place fibrocol moistened cover with gauze and paper tape daily dressings Follow-up in 1 week (3) Nonhealing surgical wound: CODE(S): T81.89XA - Other complications of procedures, not elsewhere classified, initial encounter QUALIFIERS: Encounter type: initial encounter Qualified Code(s): T81.89XA - Other complications of procedures, not elsewhere classified, initial encounter (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
[2023-03-13 09:28] VITALS: BP 121/51; PULSE 66; RESP 16; TEMP 36.5; BMI 22.3
--- NOTE | 2023-03-13 11:23 | PCM.WC.PN ---
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 He received courses of chemotherapy followed by radiation treatments, which were concluded by the end of 2017. He recently underwent oral surgery and had 8 teeth extracted. Two extraction sites have failed to heal. On November 07, 2021, the patient underwent reconstruction of the jaw using bone from his left lower leg. 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 Progress of Wound: Again measurements are measuring smaller on the jaw much improved with Bactroban and the Fibracol. Subjective Subjective Daughter and patient very happy with outcomes Objective Data Objective Data Again measuring smaller more shallow doing very well no sign of infection noted Vital Signs: Vital Signs Temp Pulse Resp BP O2 Del Method 97.7 F L 66 16 121/51 H Room Air 03/13/23 09:28 03/13/23 09:28 03/13/23 09:28 03/13/23 09:28 03/13/23 09:28 Oxygen Delivery Method Room Air Weight: 130 lb Body Mass Index (BMI) 22.3 Physical Exam Narrative ECOG 1 Hard of hearing Const alert, oriented x3 and no apparent distress General Appearance: cooperative and comfortable HEENT normocephalic HEENT Narrative: Reconstruction of the lower face, soft tissue edema Mouth: No thrush Eyes General Eye: normal appearance of both eyes Conjunctiva: conjunctiva normal Sclera: sclera normal Neck no lymphadenopathy and no JVD Neck Narrative: Postoperative changes and flap. Wound is covered with surgical dressing General: tracheostomy present Lymph Lymphatic: no lymphadenopathy noted Chest Chest: symmetrical chest wall rise Resp Auscultation: diminished lung sounds bilateral and diffuse Cardio regular rate and regular rhythm Jugular Venous Distention: Negative for JVD GI soft to palpation, non-tender and non-distended; Negative for hepatosplenomegaly GI Narrative: PEG tube Inspection: GI tube present no CVA tenderness Back/Spine no thoracic nor lumbar tenderness Extremity General Extremity: Negative for clubbing, cyanosis or edema Skin no rashes or lesions noted Neuro oriented x3, CN's II-XII intact bilaterally and moves all extremities Neuro Narrative: Bilateral symmetric wasting of first interosseous muscles. Coordination / Balance: [id number] test normal Speech: speech abnormal Gait (Neuro): normal gait Psych mental status grossly normal, thought process normal, cooperative and affect normal Debridement Note Debridement Note Wound debrided: Left jaw status post nonhealing surgical wound from cancer Laterality: Left Type of Debridement: Excisional debridement Anesthesia Used: 5% Lidocaine Gel Depth: Down to and including healthy tissue Percentage of wound debrided: 100 Instrument Used: 5mm curette Tissue Removed: Fibrin Severity: Limited To Skin Breakdown Amount of bleeding with debridement: Mild Bleeding Controlled with: Compression and gauze Patient tolerated procedure: Patient tolerated procedure well Post-Debridement Measurements and Additional Note: Post-Debridement Measurements/Treatment - Nurse 1 - General Ulcer Assessment Start: 02/27/23 09:26 Freq: Status: Active Protocol: [employer] Activity Type Activity Date Activity User E-sign Co-sign Detail Recorded Client Recorded Date Recorded By Document 02/27/23 10:23 SHANTELL [id number] 02/27/23 10:25 IN Document 03/06/23 11:03 [facility] [id number] 03/06/23 11:07 [facility] Document 03/13/23 09:28 [facility] [id number] 03/13/23 09:33 [facility] 02/27/23 03/06/23 03/13/23 10:23 11:03 09:28 - Today's Visit Information Type of service Follow-up Visit Follow-up Visit Follow-up Visit (Physician/BEHAVIORAL HEALTH SPECIALIST (Physician/BEHAVIORAL HEALTH SPECIALIST (Physician/BEHAVIORAL HEALTH SPECIALIST ) ) ) Arrival Mode Ambulatory Ambulatory Ambulatory Transfer Assistance None None Accompanied by NATALIE Patient Identification Verified (Name & No Yes Yes ) Patient Requires Transmission-Based No No No Precautions Height and Weight Body Mass Index (BMI) 22.3 22.3 22.3 BMI Classification Normal Normal Normal Vital Signs Temperature (97.8 F-99.1 F) 97.3 F L 97.3 F L 97.7 F L Temperature Source Temporal Temporal Temporal Pulse Rate (60-100) 71 63 66 Pulse Location Monitor Monitor Monitor Respiratory Rate (12-18) 16 16 Respiratory rate source Observation Observation Oxygen Delivery Method Room Air Room Air Blood Pressure (90/60-120/80) 106/64 138/69 H 121/51 H Blood Pressure Mean (mm Hg) 78 92 74 Source Monitor Monitor Monitor Position Sitting Sitting Blood Pressure Location Left Arm Left Arm History Since Last Visit- (Skip if this is Patient's initial visit) Have you changed medications since your No No No last visit? Any new allergies or adverse reactions No No No Had a fall/change in ADL's that may No No No increase risk of falls Signs or symptoms of abuse and/or No No No neglect since last visit Have you been in the hospital since your No No No last visit? Has dressing in place as prescribed Yes Yes Yes Has compression in place as prescribed N/A N/A N/A Has offloadiing in place as prescribed N/A N/A N/A Experienced any changes in pain level or No No No management Left Footwear Regular Shoe Regular Shoe Regular Shoe Right Footwear Regular Shoe Regular Shoe Regular Shoe Pain Scale: 0-10 Numeric Is Patient Pain Free? Yes Yes Yes WC - Nurse 1 - General Ulcer Measurement Start: 02/27/23 09:26 Freq: Status: Active Protocol: Activity Type Activity Date Activity User E-sign Co-sign Detail Recorded Client Recorded Date Recorded By Document 02/27/23 10:23 IN [id number] 02/27/23 10:25 IN Document 03/06/23 11:03 [facility] [id number] 03/06/23 11:07 [facility] Document 03/13/23 09:28 [facility] [id number] 03/13/23 09:33 [facility] 02/27/23 03/06/23 03/13/23 10:23 11:03 09:28 Wound Center Nurse 1 #1 Chin -Combined with other wound No No No -Current Size (cm) - Length 2 1.9 3 -Current Size (cm) - Width 1.5 1.8 1.5 -Current Size (cm) - Depth 0.1 0.1 0.1 -Total Square Cm 3.0 3.42 4.5 -Date of Last Picture (Recall this 03/06/23 03/13/23 field) -Photo Taken Yes Yes Yes -Epithelialization Small 1-33% Small 1-33% -Tunneling No No No -Undermining/Tunneling No No No -Circular Undermining No No No -Change in Wound Grade/Stage No -Exudate Amt Large Medium Small -Exudate Type Yellow/Green Serosanguineous Serous -Wound Margin Distinct, Distinct, Flat & Intact Outline Outline Attached Attached -Granulation Amt Small (1-33%) Small (1-33%) Small (1-33%) -Granulation Quality Pale,[place] Red [place] -Slough/Fibrin Yes Yes Yes -Necrosis Amt Large (67-100%) Large (67-100%) Large (67-100%) -Necrotic Tissue Type Adherent Slough Adherent Slough Adherent Slough -Structure Exposed N/A -Texture (Candace-wound Skin Appearance) No Abnormality, Assessed, Assessed, Assessed Scarring Scarring -Moisture (Candace-wound Skin Appearance) No Abnormality, Assessed Assessed Assessed -Color (Candace-wound Skin Appearance) No Abnormality, Assessed Assessed Assessed -Temperature (Candace-wound Skin No Abnormality No Abnormality No Abnormality Appearance) (Pt Warm) (Pt Warm) (Pt Warm) -Tenderness on Palpation (Candace-wound No No No Skin Appearance) -Ulcer Cleansing Rinsed/ Rinsed/ Irrigated with Irrigated with Saline Saline -Foul Odor after Cleansing No Yes, Due to No Product Use -Anesthetic Used 4% Lidocaine 5% Lidocaine 5% Lidocaine Solution Gel Gel WC - Nurse 2 - General Ulcer CM Notes Start: 02/27/23 09:26 Freq: Status: Active Protocol: Activity Type Activity Date Activity User E-sign Co-sign Detail Recorded Client Recorded Date Recorded By Document 02/27/23 09:27 MW Desktop 02/27/23 09:27 MW Document 03/06/23 11:10 MW [id number] 03/06/23 11:25 MW Document 03/13/23 09:49 MW [id number] 03/13/23 09:50 MW 02/27/23 03/06/23 03/13/23 09:27 11:10 09:49 Wound Center Nurse 2 #1 Chin -Time 09: 11:10 09:50 -Correct Patient Yes Yes Yes -Correct Side, Site, Position Yes Yes Yes -Correct Procedure Yes Yes Yes -Procedure Performed Yes Yes Yes -Type of Procedure Debridement Debridement Debridement -Clinical Debridement Subcutaneous Subcutaneous Subcutaneous -Tissue Removed Subcutaneous Subcutaneous Subcutaneous -Post Debridement (cm) - Length 2.0 2.5 2.5 -Post Debridement (cm) - Width 1.8 1.5 2.0 -Post Debridement (cm) - Depth 0.4 0.3 0.3 -Total Square (Post) (cm) 3.60 3.75 5.00 -Area of Debridement (cm) - Length 2.0 2.5 2.5 -Area of Debridement (cm) - Width 1.8 1.5 2.0 -Total Square (Area) (cm) 3.60 3.75 5.00 -Tunneling No No No -Undermining/Tunneling No No No -Circular Undermining No No No -Wound/Ulcer Outcome Not Healed Not Healed Not Healed -Ulcer Cleansing Rinsed/ Rinsed/ Rinsed/ Irrigated with Irrigated with Irrigated with Saline Saline Saline -Foul Odor after Cleansing No No No -Bioengineered Tissue No No No -Bleeding Controlled with Pressure Pressure Pressure -Treatment Response Procedure Procedure Procedure Tolerated Well Tolerated Well Tolerated Well -Offloading No No No -Debridement - Subq, 1st 20sq cm Yes Yes Yes Pain Scale: 0-10 Numeric Is Patient Pain Free? Yes Yes Yes WC - Nurse 3 - General Ulcer D/C NN Start: 02/27/23 09:26 Freq: Status: Active Protocol: Activity Type Activity Date Activity User E-sign Co-sign Detail Recorded Client Recorded Date Recorded By Document 02/27/23 09:30 MW Desktop 02/27/23 09:31 MW Document 03/06/23 11:20 MW [id number] 03/06/23 11:29 MW Document 03/13/23 09:55 MW [id number] 03/13/23 09:56 MW 02/27/23 03/06/23 03/13/23 09:30 11:20 09:55 Wound Care Center Nurse 3 #1 Chin -Ulcer Cleansing Rinsed/ Rinsed/ Rinsed/ Irrigated with Irrigated with Irrigated with Saline Saline Saline -Foul Odor after Cleansing No No No -Negative Pressure Wound Therapy N/A N/A -Primary Dressing Applied Promogran Fibracol Plus Fibracol Plus Ruth Matter 4x4 4x4 -Other Dressing bactroban bactroban -Primary Dressing Covered/Secured with Dry Gauze, Dry Gauze, Dry Gauze, Secured with Secured with Secured with Tape Tape Tape -Other Covering silicone tape -Fibracol Plus 4x4 1 1 -Promogran Ruth Matter 1 Treatment Response Procedure Procedure Procedure Tolerated Well Tolerated Well Tolerated Well Pain Scale: 0-10 Numeric Is Patient Pain Free? Yes Yes Yes Teaching: Wound Center Dressing Your Wound -Person Taught Patient -Teaching Method Discussion, Demonstration -Response to teaching Verbalize understanding WC - Visit Discharge Discharge Condition Stable Stable Stable Ambulatory Status Ambulatory Ambulatory Ambulatory Transportation Private Auto Private Auto Private Auto Accompanied by self self natalie Medication Reconcilliation completed & No No provided to patient/care provider Clinical Summary of Care Provided Yes Yes Assessment/Plan Assessment/Plan (1) Head and neck cancer: CODE(S): C76.0 - Malignant neoplasm of head, face and neck (2) Delayed surgical wound healing: CODE(S): T81.89XA - Other complications of procedures, not elsewhere classified, initial encounter QUALIFIERS: Encounter type: initial encounter Qualified Code(s): T81.89XA - Other complications of procedures, not elsewhere classified, initial encounter PLAN: Wash area with antibacterial soap and apply Bactroban to wound base nickel thickness then place fibrocol moistened cover with gauze and paper tape daily dressings Follow-up in 1 week (3) Nonhealing surgical wound: CODE(S): T81.89XA - Other complications of procedures, not elsewhere classified, initial encounter QUALIFIERS: Encounter type: initial encounter Qualified Code(s): T81.89XA - Other complications of procedures, not elsewhere classified, initial encounter (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
[2023-03-20 09:07] VITALS: BP 113/62; PULSE 62; RESP 16; BMI 22.3
--- NOTE | 2023-03-20 11:19 | PCM.WC.PN ---
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 He received courses of chemotherapy followed by radiation treatments, which were concluded by the end of 2017. He recently underwent oral surgery and had 8 teeth extracted. Two extraction sites have failed to heal. On November 07, 2021, the patient underwent reconstruction of the jaw using bone from his left lower leg. 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 Progress of Wound: Again measurements are measuring well matter on the jaw much improved with Bactroban and the Fibracol. Subjective Subjective Patient is very pleased with outcomes Objective Data Objective Data We will continue same treatment and probably culture next week because he always seems to grow something in that jaw. Vital Signs: Vital Signs Temp Pulse Resp BP O2 Del Method 97.7 F L 62 16 113/62 Room Air 03/13/23 09:28 03/20/23 09:07 03/20/23 09:07 03/20/23 09:07 03/20/23 09:07 Oxygen Delivery Method Room Air Weight: 130 lb Body Mass Index (BMI) 22.3 Lab / Micro Data Attestation: I reviewed the patient's lab results. Physical Exam Narrative ECOG 1 Hard of hearing Const alert, oriented x3 and no apparent distress General Appearance: cooperative and comfortable HEENT normocephalic HEENT Narrative: Reconstruction of the lower face, soft tissue edema Mouth: No thrush Eyes General Eye: normal appearance of both eyes Conjunctiva: conjunctiva normal Sclera: sclera normal Neck no lymphadenopathy and no JVD Neck Narrative: Postoperative changes and flap. Wound is covered with surgical dressing General: tracheostomy present Lymph Lymphatic: no lymphadenopathy noted Chest Chest: symmetrical chest wall rise Resp Auscultation: diminished lung sounds bilateral and diffuse Cardio regular rate and regular rhythm Jugular Venous Distention: Negative for JVD GI soft to palpation, non-tender and non-distended; Negative for hepatosplenomegaly GI Narrative: PEG tube Inspection: GI tube present no CVA tenderness Back/Spine no thoracic nor lumbar tenderness Extremity General Extremity: Negative for clubbing, cyanosis or edema Skin no rashes or lesions noted Neuro oriented x3, CN's II-XII intact bilaterally and moves all extremities Neuro Narrative: Bilateral symmetric wasting of first interosseous muscles. Coordination / Balance: [id number] test normal Speech: speech abnormal Gait (Neuro): normal gait Psych mental status grossly normal, thought process normal, cooperative and affect normal Debridement Note Debridement Note Wound debrided: Left jaw open wound surgical nonhealing from cancer Laterality: Left Type of Debridement: Excisional debridement Anesthesia Used: 5% Lidocaine Gel Depth: Down to and including healthy tissue Percentage of wound debrided: 100 Instrument Used: 5mm curette Tissue Removed: Fibrin Severity: Limited To Skin Breakdown Amount of bleeding with debridement: Mild Bleeding Controlled with: Compression and gauze Patient tolerated procedure: Patient tolerated procedure well Post-Debridement Measurements and Additional Note: Post-Debridement Measurements/Treatment - Nurse 1 - General Ulcer Assessment Start: 02/27/23 09:26 Freq: Status: Active Protocol: BRANDAN Activity Type Activity Date Activity User E-sign Co-sign Detail Recorded Client Recorded Date Recorded By Document 02/27/23 10:23 UT [id number] 02/27/23 10:25 UT Document 03/06/23 11:03 [facility] [id number] 03/06/23 11:07 [facility] Document 03/13/23 09:28 [facility] [id number] 03/13/23 09:33 [facility] Document 03/20/23 09:07 [facility] [id number] 03/20/23 09:08 [facility] 02/27/23 03/06/23 03/13/23 10:23 11:03 09:28 - Today's Visit Information Type of service Follow-up Visit Follow-up Visit Follow-up Visit (Physician/WHARF TENDER HELPER (Physician/WHARF TENDER HELPER (Physician/WHARF TENDER HELPER ) ) ) Arrival Mode Ambulatory Ambulatory Ambulatory Transfer Assistance None None Accompanied by NATALIE Patient Identification Verified (Name & No Yes Yes ) Patient Requires Transmission-Based No No No Precautions Height and Weight Body Mass Index (BMI) 22.3 22.3 22.3 BMI Classification Normal Normal Normal Vital Signs Temperature (97.8 F-99.1 F) 97.3 F L 97.3 F L 97.7 F L Temperature Source Temporal Temporal Temporal Pulse Rate (60-100) 71 63 66 Pulse Location Monitor Monitor Monitor Respiratory Rate (12-18) 16 16 Respiratory rate source Observation Observation Oxygen Delivery Method Room Air Room Air Blood Pressure (90/60-120/80) 106/64 138/69 H 121/51 H Blood Pressure Mean (mm Hg) 78 92 74 Source Monitor Monitor Monitor Position Sitting Sitting Blood Pressure Location Left Arm Left Arm History Since Last Visit- (Skip if this is Patient's initial visit) Have you changed medications since your No No No last visit? Any new allergies or adverse reactions No No No Had a fall/change in ADL's that may No No No increase risk of falls Signs or symptoms of abuse and/or No No No neglect since last visit Have you been in the hospital since your No No No last visit? Has dressing in place as prescribed Yes Yes Yes Has compression in place as prescribed N/A N/A N/A Has offloadiing in place as prescribed N/A N/A N/A Experienced any changes in pain level or No No No management Left Footwear Regular Shoe Regular Shoe Regular Shoe Right Footwear Regular Shoe Regular Shoe Regular Shoe Pain Scale: 0-10 Numeric Is Patient Pain Free? Yes Yes Yes 03/20/23 09:07 WC - Today's Visit Information Type of service Follow-up Visit (Physician/WHARF TENDER HELPER ) Arrival Mode Ambulatory Transfer Assistance None Accompanied by Patient Identification Verified (Name & Yes ) Patient Requires Transmission-Based No Precautions Height and Weight Body Mass Index (BMI) 22.3 BMI Classification Normal Vital Signs Temperature (97.8 F-99.1 F) Temperature Source Pulse Rate (60-100) 62 Pulse Location Monitor Respiratory Rate (12-18) 16 Respiratory rate source Observation Oxygen Delivery Method Room Air Blood Pressure (90/60-120/80) 113/62 Blood Pressure Mean (mm Hg) 79 Source Monitor Position Sitting Blood Pressure Location Left Arm History Since Last Visit- (Skip if this is Patient's initial visit) Have you changed medications since your No last visit? Any new allergies or adverse reactions No Had a fall/change in ADL's that may No increase risk of falls Signs or symptoms of abuse and/or No neglect since last visit Have you been in the hospital since your No last visit? Has dressing in place as prescribed Yes Has compression in place as prescribed N/A Has offloadiing in place as prescribed N/A Experienced any changes in pain level or No management Left Footwear Regular Shoe Right Footwear Regular Shoe Pain Scale: 0-10 Numeric Is Patient Pain Free? Yes WC - Nurse 1 - General Ulcer Measurement Start: 02/27/23 09:26 Freq: Status: Active Protocol: Activity Type Activity Date Activity User E-sign Co-sign Detail Recorded Client Recorded Date Recorded By Document 02/27/23 10:23 SHANTELL [id number] 02/27/23 10:25 [place] Document 03/06/23 11:03 [facility] [id number] 03/06/23 11:07 BM Document 03/13/23 09:28 [facility] [id number] 03/13/23 09:33 [facility] Document 03/20/23 09:07 [facility] [id number] 03/20/23 09:08 BMF 02/27/23 03/06/23 03/13/23 10:23 11:03 09:28 Wound Center Nurse 1 #1 Chin -Combined with other wound No No No -Current Size (cm) - Length 2 1.9 3 -Current Size (cm) - Width 1.5 1.8 1.5 -Current Size (cm) - Depth 0.1 0.1 0.1 -Total Square Cm 3.0 3.42 4.5 -Date of Last Picture (Recall this 03/06/23 03/13/23 field) -Photo Taken Yes Yes Yes -Epithelialization Small 1-33% Small 1-33% -Tunneling No No No -Undermining/Tunneling No No No -Circular Undermining No No No -Change in Wound Grade/Stage No -Exudate Amt Large Medium Small -Exudate Type Yellow/Green Serosanguineous Serous -Wound Margin Distinct, Distinct, Flat & Intact Outline Outline Attached Attached -Granulation Amt Small (1-33%) Small (1-33%) Small (1-33%) -Granulation Quality Pale,[place] Red [place] -Slough/Fibrin Yes Yes Yes -Necrosis Amt Large (67-100%) Large (67-100%) Large (67-100%) -Necrotic Tissue Type Adherent Slough Adherent Slough Adherent Slough -Structure Exposed N/A -Texture (Candace-wound Skin Appearance) No Abnormality, Assessed, Assessed, Assessed Scarring Scarring -Moisture (Candace-wound Skin Appearance) No Abnormality, Assessed Assessed Assessed -Color (Candace-wound Skin Appearance) No Abnormality, Assessed Assessed Assessed -Temperature (Candace-wound Skin No Abnormality No Abnormality No Abnormality Appearance) (Pt Warm) (Pt Warm) (Pt Warm) -Tenderness on Palpation (Candace-wound No No No Skin Appearance) -Ulcer Cleansing Rinsed/ Rinsed/ Irrigated with Irrigated with Saline Saline -Foul Odor after Cleansing No Yes, Due to No Product Use -Anesthetic Used 4% Lidocaine 5% Lidocaine 5% Lidocaine Solution Gel Gel 03/20/23 09:07 Wound Center Nurse 1 #1 Chin -Combined with other wound No -Current Size (cm) - Length 1.8 -Current Size (cm) - Width 1.7 -Current Size (cm) - Depth 0.1 -Total Square Cm 3.06 -Date of Last Picture (Recall this 03/20/23 field) -Photo Taken Yes -Epithelialization Small 1-33% -Tunneling No -Undermining/Tunneling No -Circular Undermining No -Change in Wound Grade/Stage -Exudate Amt Small -Exudate Type Serous -Wound Margin Flat & Intact -Granulation Amt Medium (34-66%) -Granulation Quality [place] -Slough/Fibrin Yes -Necrosis Amt Medium (34-66%) -Necrotic Tissue Type Adherent Slough -Structure Exposed -Texture (Candace-wound Skin Appearance) Assessed, Scarring -Moisture (Candace-wound Skin Appearance) Assessed -Color (Candace-wound Skin Appearance) Assessed -Temperature (Candace-wound Skin No Abnormality Appearance) (Pt Warm) -Tenderness on Palpation (Candace-wound No Skin Appearance) -Ulcer Cleansing Rinsed/ Irrigated with Saline -Foul Odor after Cleansing No -Anesthetic Used 5% Lidocaine Gel WC - Nurse 2 - General Ulcer CM Notes Start: 02/27/23 09:26 Freq: Status: Active Protocol: Activity Type Activity Date Activity User E-sign Co-sign Detail Recorded Client Recorded Date Recorded By Document 02/27/23 09:27 MW Desktop 02/27/23 09:27 MW Document 03/06/23 11:10 MW [id number] 03/06/23 11:25 MW Document 03/13/23 09:49 MW [id number] 03/13/23 09:50 MW 02/27/23 03/06/23 03/13/23 09:27 11:10 09:49 Wound Center Nurse 2 #1 Chin -Time 09:27 11:10 09:50 -Correct Patient Yes Yes Yes -Correct Side, Site, Position Yes Yes Yes -Correct Procedure Yes Yes Yes -Procedure Performed Yes Yes Yes -Type of Procedure Debridement Debridement Debridement -Clinical Debridement Subcutaneous Subcutaneous Subcutaneous -Tissue Removed Subcutaneous Subcutaneous Subcutaneous -Post Debridement (cm) - Length 2.0 2.5 2.5 -Post Debridement (cm) - Width 1.8 1.5 2.0 -Post Debridement (cm) - Depth 0.4 0.3 0.3 -Total Square (Post) (cm) 3.60 3.75 5.00 -Area of Debridement (cm) - Length 2.0 2.5 2.5 -Area of Debridement (cm) - Width 1.8 1.5 2.0 -Total Square (Area) (cm) 3.60 3.75 5.00 -Tunneling No No No -Undermining/Tunneling No No No -Circular Undermining No No No -Wound/Ulcer Outcome Not Healed Not Healed Not Healed -Ulcer Cleansing Rinsed/ Rinsed/ Rinsed/ Irrigated with Irrigated with Irrigated with Saline Saline Saline -Foul Odor after Cleansing No No No -Bioengineered Tissue No No No -Bleeding Controlled with Pressure Pressure Pressure -Treatment Response Procedure Procedure Procedure Tolerated Well Tolerated Well Tolerated Well -Offloading No No No -Debridement - Subq, 1st 20sq cm Yes Yes Yes Pain Scale: 0-10 Numeric Is Patient Pain Free? Yes Yes Yes WC - Nurse 3 - General Ulcer D/C NN Start: 02/27/23 09:26 Freq: Status: Active Protocol: Activity Type Activity Date Activity User E-sign Co-sign Detail Recorded Client Recorded Date Recorded By Document 02/27/23 09:30 MW Desktop 02/27/23 09:31 MW Document 03/06/23 11:20 MW [id number] 03/06/23 11:29 MW Document 03/13/23 09:55 MW [id number] 03/13/23 09:56 MW Document 03/20/23 11:08 AK [id number] 03/20/23 11:09 AK 02/27/23 03/06/23 03/13/23 09:30 11:20 09:55 Wound Care Center Nurse 3 #1 Chin -Ulcer Cleansing Rinsed/ Rinsed/ Rinsed/ Irrigated with Irrigated with Irrigated with Saline Saline Saline -Foul Odor after Cleansing No No No -Negative Pressure Wound Therapy N/A N/A -Primary Dressing Applied Promogran Fibracol Plus Fibracol Plus Ruth Matter 4x4 4x4 -Other Dressing bactroban bactroban -Primary Dressing Covered/Secured with Dry Gauze, Dry Gauze, Dry Gauze, Secured with Secured with Secured with Tape Tape Tape -Other Covering silicone tape -Fibracol Plus 4x4 1 1 -Promogran Ruth Matter 1 Treatment Response Procedure Procedure Procedure Tolerated Well Tolerated Well Tolerated Well Pain Scale: 0-10 Numeric Is Patient Pain Free? Yes Yes Yes Teaching: Wound Center Dressing Your Wound -Person Taught Patient -Teaching Method Discussion, Demonstration -Response to teaching Verbalize understanding WC - Visit Discharge Discharge Condition Stable Stable Stable Ambulatory Status Ambulatory Ambulatory Ambulatory Transportation Private Auto Private Auto Private Auto Accompanied by self self natalie Medication Reconcilliation completed & No No provided to patient/care provider Clinical Summary of Care Provided Yes Yes 03/20/23 11:08 Wound Care Center Nurse 3 #1 Chin -Ulcer Cleansing Rinsed/ Irrigated with Saline -Foul Odor after Cleansing No -Negative Pressure Wound Therapy N/A -Primary Dressing Applied Fibracol Plus 4x4 -Other Dressing bactraban -Primary Dressing Covered/Secured with Dry Gauze, Secured with Tape -Other Covering -Fibracol Plus 4x4 1 -Promogran Ruth Matter Treatment Response Pain Scale: 0-10 Numeric Is Patient Pain Free? Yes Teaching: Wound Center Dressing Your Wound -Person Taught -Teaching Method -Response to teaching WC - Visit Discharge Discharge Condition Stable Ambulatory Status Ambulatory Transportation Private Auto Accompanied by Medication Reconcilliation completed & Yes provided to patient/care provider Clinical Summary of Care Provided Yes Assessment/Plan Assessment/Plan (1) Head and neck cancer: CODE(S): C76.0 - Malignant neoplasm of head, face and neck (2) Delayed surgical wound healing: CODE(S): T81.89XA - Other complications of procedures, not elsewhere classified, initial encounter QUALIFIERS: Encounter type: initial encounter Qualified Code(s): T81.89XA - Other complications of procedures, not elsewhere classified, initial encounter PLAN: Wash area with antibacterial soap and apply Bactroban to wound base nickel thickness then place fibrocol moistened cover with gauze and paper tape daily dressings Follow-up in 1 week (3) Nonhealing surgical wound: CODE(S): T81.89XA - Other complications of procedures, not elsewhere classified, initial encounter QUALIFIERS: Encounter type: initial encounter Qualified Code(s): T81.89XA - Other complications of procedures, not elsewhere classified, initial encounter (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
== END 2023-03-22 23:59 | disposition home or self-care (01) ==
LOC: WC 09:15
PROVIDERS: PCP Nurse Practitioner; Referring Provider Nurse Practitioner; Visit Provider Nurse Practitioner
DX: T81.89XA Other complications of procedures, not elsewhere classified, initial encounter (principal); Z93.0 Tracheostomy status; C76.0 Malignant neoplasm of head, face and neck; L59.8 Other specified disorders of the skin and subcutaneous tissue related to radiation; Y84.2 Radiological procedure and radiotherapy as the cause of abnormal reaction of the patient, or of later complication, without mention of misadventure at the time of the procedure; Z92.21 Personal history of antineoplastic chemotherapy; Z92.3 Personal history of irradiation; Z79.890 Hormone replacement therapy; Z79.899 Other long term (current) drug therapy
CPT/HCPCS: 11042

== ENCOUNTER 2023-04-10 08:30 | Outpatient (RCR) | payer OTHER, SELFPAY ==
[2022-01-31 09:09] VITALS: BMI 22.6
[2023-03-23 00:56] VITALS: BP 113/62; PULSE 62; RESP 16; TEMP 36.5; BMI 22.3
[2023-03-27 09:11] VITALS: BP 117/62; PULSE 64; RESP 16; TEMP 36.6; BMI 22.3
--- NOTE | 2023-03-27 12:12 | PN.PCM_ITS ---
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 He received courses of chemotherapy followed by radiation treatments, which were concluded by the end of 2017. He recently underwent oral surgery and had 8 teeth extracted. Two extraction sites have failed to heal. On November 07, 2021, the patient underwent reconstruction of the jaw using bone from his left lower leg. He now has a chronic, non-healing surgical wound in the left sub- mandibular area. Progress of Wound: Every week so far it is improved and becoming more shallow. Using Bactroban and Fibracol at his work tremendously at healing his open wound. Subjective Subjective Patient is very pleased with the outcomes Objective Data Objective Data Continues to measure smaller and become more shallow Vital Signs: Vital Signs Temp Pulse Resp BP O2 Del Method 97.9 F 64 16 117/62 Room Air 03/27/23 09:11 03/27/23 09:11 03/27/23 09:11 03/27/23 09:11 03/27/23 09:11 Oxygen Delivery Method Room Air Weight: 130 lb Body Mass Index (BMI) 22.3 Lab / Micro Data Attestation: I reviewed the patient's lab results. Physical Exam Narrative ECOG 1 Hard of hearing Const alert, oriented x3 and no apparent distress General Appearance: cooperative and comfortable HEENT normocephalic HEENT Narrative: Reconstruction of the lower face, soft tissue edema Mouth: No thrush Eyes General Eye: normal appearance of both eyes Conjunctiva: conjunctiva normal Sclera: sclera normal Neck no lymphadenopathy and no JVD Neck Narrative: Postoperative changes and flap. Wound is covered with surgical dressing General: tracheostomy present Lymph Lymphatic: no lymphadenopathy noted Chest Chest: symmetrical chest wall rise Resp Auscultation: diminished lung sounds bilateral and diffuse Cardio regular rate and regular rhythm Jugular Venous Distention: Negative for JVD GI soft to palpation, non-tender and non-distended; Negative for hepatosplenomegaly GI Narrative: PEG tube Inspection: GI tube present no CVA tenderness Back/Spine no thoracic nor lumbar tenderness Extremity General Extremity: Negative for clubbing, cyanosis or edema Skin no rashes or lesions noted Neuro oriented x3, CN's II-XII intact bilaterally and moves all extremities Neuro Narrative: Bilateral symmetric wasting of first interosseous muscles. Coordination / Balance: gbulkb-pj-jpgy test normal Speech: speech abnormal Gait (Neuro): normal gait Psych mental status grossly normal, thought process normal, cooperative and affect normal Debridement Note Debridement Note Wound debrided: Left jaw surgical nonhealing Type of Debridement: Excisional debridement Anesthesia Used: 5% Lidocaine Gel Depth: Down to and including healthy tissue Percentage of wound debrided: 100 Instrument Used: 5mm curette Tissue Removed: Slough fibrin Severity: Limited To Skin Breakdown Amount of bleeding with debridement: Mild Bleeding Controlled with: Compression and gauze Patient tolerated procedure: Patient tolerated procedure well Post-Debridement Measurements and Additional Note: Post-Debridement Measurements/Treatment - Nurse 1 - General Ulcer Assessment Start: 03/27/23 09:10 Freq: Status: Active Protocol: BRANDAN Activity Type Activity Date Activity User E-sign Co-sign Detail Recorded Client Recorded Date Recorded By Document 03/27/23 09:11 [facility] [id number] 03/27/23 09:17 [facility] 03/27/23 09:11 - Today's Visit Information Type of service Follow-up Visit (Physician/SUPERVISOR SHOW OPERATIONS ) Arrival Mode Ambulatory Transfer Assistance None Patient Identification Verified (Name & Yes ) Patient Requires Transmission-Based No Precautions Height and Weight Body Mass Index (BMI) 22.3 BMI Classification Normal Vital Signs Temperature (97.8 F-99.1 F) 97.9 F Temperature Source Temporal Pulse Rate (60-100) 64 Pulse Location Monitor Respiratory Rate (12-18) 16 Respiratory rate source Observation Oxygen Delivery Method Room Air Blood Pressure (90/60-120/80) 117/62 Blood Pressure Mean (mm Hg) 80 Source Monitor Position Sitting Blood Pressure Location Left Arm History Since Last Visit- (Skip if this is Patient's initial visit) Have you changed medications since your No last visit? Any new allergies or adverse reactions No Had a fall/change in ADL's that may No increase risk of falls Signs or symptoms of abuse and/or No neglect since last visit Have you been in the hospital since your No last visit? Has dressing in place as prescribed Yes Has compression in place as prescribed N/A Has offloadiing in place as prescribed N/A Experienced any changes in pain level or No management Left Footwear Regular Shoe Right Footwear Regular Shoe Pain Scale: 0-10 Numeric Is Patient Pain Free? Yes - Nurse 1 - General Ulcer Measurement Start: 03/27/23 09:10 Freq: Status: Active Protocol: Activity Type Activity Date Activity User E-sign Co-sign Detail Recorded Client Recorded Date Recorded By Document 03/27/23 09:11 [facility] [id number] 03/27/23 09:17 [facility] 03/27/23 09:11 Wound Center Nurse 1 #1 Chin -Combined with other wound No -Current Size (cm) - Length 0.1 -Current Size (cm) - Width 0.1 -Current Size (cm) - Depth 0.1 -Total Square Cm 0.01 -Date of Last Picture (Recall this 03/27/23 field) -Photo Taken Yes -Epithelialization Large 67-100% -Tunneling No -Undermining/Tunneling No -Circular Undermining No -Texture (Candace-wound Skin Appearance) Assessed, Scarring -Moisture (Candace-wound Skin Appearance) Assessed,Dry/ Scaly -Color (Candace-wound Skin Appearance) Assessed -Temperature (Candace-wound Skin No Abnormality Appearance) (Pt Warm) -Tenderness on Palpation (Candace-wound No Skin Appearance) -Ulcer Cleansing Rinsed/ Irrigated with Saline -Foul Odor after Cleansing No -Anesthetic Used 5% Lidocaine Gel WC - Nurse 2 - General Ulcer CM Notes Start: 03/27/23 09:10 Freq: Status: Active Protocol: Activity Type Activity Date Activity User E-sign Co-sign Detail Recorded Client Recorded Date Recorded By Document 03/27/23 09:34 [id number] 03/27/23 09:36 MW 03/27/23 09:34 Wound Center Nurse 2 -Time 09:35 -Correct Patient Yes -Correct Side, Site, Position Yes -Correct Procedure Yes -Procedure Performed Yes -Type of Procedure Debridement -Clinical Debridement Subcutaneous -Tissue Removed Subcutaneous -Post Debridement (cm) - Length 1.8 -Post Debridement (cm) - Width 1.5 -Post Debridement (cm) - Depth 0.3 -Total Square (Post) (cm) 2.70 -Area of Debridement (cm) - Length 1.8 -Area of Debridement (cm) - Width 1.5 -Total Square (Area) (cm) 2.70 -Tunneling No -Undermining/Tunneling No -Circular Undermining No -Wound/Ulcer Outcome Not Healed -Ulcer Cleansing Rinsed/ Irrigated with Saline -Foul Odor after Cleansing No -Bioengineered Tissue No -Bleeding Controlled with Pressure -Treatment Response Procedure Tolerated Well -Offloading No -Debridement - Subq, 1st 20sq cm Yes Pain Scale: 0-10 Numeric Is Patient Pain Free? Yes WC - Nurse 3 - General Ulcer D/C NN Start: 03/27/23 09:10 Freq: Status: Active Protocol: Activity Type Activity Date Activity User E-sign Co-sign Detail Recorded Client Recorded Date Recorded By Document 03/27/23 09:40 MW [id number] 03/27/23 09:40 MW 03/27/23 09:40 Wound Care Center Nurse 3 #1 Chin -Ulcer Cleansing Rinsed/ Irrigated with Saline -Foul Odor after Cleansing No -Negative Pressure Wound Therapy N/A -Primary Dressing Applied Fibracol Plus 4x4 -Primary Dressing Covered/Secured with Dry Gauze, Secured with Tape -Fibracol Plus 4x4 1 Treatment Response Procedure Tolerated Well Pain Scale: 0-10 Numeric Is Patient Pain Free? Yes Teaching: Wound Center Dressing Your Wound -Person Taught Patient -Teaching Method Discussion -Response to teaching Verbalize understanding WC - Visit Discharge Discharge Condition Stable Ambulatory Status Ambulatory Transportation Private Auto Accompanied by self Medication Reconcilliation completed & No provided to patient/care provider Clinical Summary of Care Provided No Assessment/Plan Assessment/Plan (1) Head and neck cancer: CODE(S): C76.0 - Malignant neoplasm of head, face and neck (2) Delayed surgical wound healing: CODE(S): T81.89XA - Other complications of procedures, not elsewhere classified, initial encounter QUALIFIERS: Encounter type: initial encounter Qualified Code(s): T81.89XA - Other complications of procedures, not elsewhere classified, initial encounter PLAN: Wash area with antibacterial soap and apply Bactroban to wound base nickel thickness then place fibrocol moistened cover with gauze and paper tape daily dressings Follow-up in 1 week (3) Nonhealing surgical wound: CODE(S): T81.89XA - Other complications of procedures, not elsewhere classified, initial encounter QUALIFIERS: Encounter type: initial encounter Qualified Code(s): T81.89XA - Other complications of procedures, not elsewhere classified, initial encounter (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
[2023-04-03 08:38] VITALS: BP 125/54; PULSE 70; RESP 16; TEMP 36.6; BMI 22.3
--- NOTE | 2023-04-03 09:50 | PCM.WC.PN ---
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 He received courses of chemotherapy followed by radiation treatments, which were concluded by the end of 2017. He recently underwent oral surgery and had 8 teeth extracted. Two extraction sites have failed to heal. On November 07, 2021, the patient underwent reconstruction of the jaw using bone from his left lower leg. 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 Progress of Wound: Every week so far it is improved and becoming more shallow. Using Bactroban and Fibracol at his work tremendously at healing his open wound. We will obtain cultures again. He finally is wearing the plug for the trach so he can get it removed. I think that handling and hang touching causes the infections in his jaw. Would like to get that trach out of there and I think it is the problem with his healing. Subjective Subjective Daughter and patient are very pleased with outcomes and we will call with the culture results to them Objective Data Objective Data Healing well measurements are up a little bit better than last weeks but continue to be the same shallow and filling in nicely. Cultures obtained will call with the results Vital Signs: Vital Signs Temp Pulse Resp BP O2 Del Method 97.9 F 70 16 125/54 H Room Air 04/03/23 08:38 04/03/23 08:38 04/03/23 08:38 04/03/23 08:38 04/03/23 08:38 Oxygen Delivery Method Room Air Weight: 130 lb Body Mass Index (BMI) 22.3 Physical Exam Narrative ECOG 1 Hard of hearing Const alert, oriented x3 and no apparent distress General Appearance: cooperative and comfortable HEENT normocephalic HEENT Narrative: Reconstruction of the lower face, soft tissue edema Mouth: No thrush Eyes General Eye: normal appearance of both eyes Conjunctiva: conjunctiva normal Sclera: sclera normal Neck no lymphadenopathy and no JVD Neck Narrative: Postoperative changes and flap. Wound is covered with surgical dressing General: tracheostomy present Lymph Lymphatic: no lymphadenopathy noted Chest Chest: symmetrical chest wall rise Resp Auscultation: diminished lung sounds bilateral and diffuse Cardio regular rate and regular rhythm Jugular Venous Distention: Negative for JVD GI soft to palpation, non-tender and non-distended; Negative for hepatosplenomegaly GI Narrative: PEG tube Inspection: GI tube present no CVA tenderness Back/Spine no thoracic nor lumbar tenderness Extremity General Extremity: Negative for clubbing, cyanosis or edema Skin no rashes or lesions noted Neuro oriented x3, CN's II-XII intact bilaterally and moves all extremities Neuro Narrative: Bilateral symmetric wasting of first interosseous muscles. Coordination / Balance: amthwf-ao-dbye test normal Speech: speech abnormal Gait (Neuro): normal gait Psych mental status grossly normal, thought process normal, cooperative and affect normal Debridement Note Debridement Note Wound debrided: Left jaw surgical nonhealing wound Type of Debridement: Excisional debridement Anesthesia Used: 5% Lidocaine Gel Depth: Down to and including healthy tissue and in the subcutaneous layer Percentage of wound debrided: 100 Instrument Used: 5mm curette Tissue Removed: Fibrin Severity: Limited To Skin Breakdown Amount of bleeding with debridement: Mild Bleeding Controlled with: Compression and gauze Patient tolerated procedure: Patient tolerated procedure well Post-Debridement Measurements and Additional Note: Post-Debridement Measurements/Treatment - Nurse 1 - General Ulcer Assessment Start: 03/27/23 09:10 Freq: Status: Active Protocol: .siXisFRANK Activity Type Activity Date Activity User E-sign Co-sign Detail Recorded Client Recorded Date Recorded By Document 03/27/23 09:11 [facility] [id number] 03/27/23 09:17 [facility] Document 04/03/23 08:38 [facility] [id number] 04/03/23 08:45 [facility] 03/27/23 04/03/23 09:11 08:38 - Today's Visit Information Type of service Follow-up Visit Follow-up Visit (Physician/SHELVING SUPERVISOR (Physician/SHELVING SUPERVISOR ) ) Arrival Mode Ambulatory Ambulatory Transfer Assistance None None Accompanied by daughter Patient Identification Verified (Name & Yes Yes ) Patient Requires Transmission-Based No No Precautions Height and Weight Body Mass Index (BMI) 22.3 22.3 BMI Classification Normal Normal Vital Signs Temperature (97.8 F-99.1 F) 97.9 F 97.9 F Temperature Source Temporal Temporal Pulse Rate (60-100) 64 70 Pulse Location Monitor Monitor Respiratory Rate (12-18) 16 16 Respiratory rate source Observation Observation Oxygen Delivery Method Room Air Room Air Blood Pressure (90/60-120/80) 117/62 125/54 H Blood Pressure Mean (mm Hg) 80 77 Source Monitor Monitor Position Sitting Sitting Blood Pressure Location Left Arm Left Arm History Since Last Visit- (Skip if this is Patient's initial visit) Have you changed medications since your No No last visit? Any new allergies or adverse reactions No No Had a fall/change in ADL's that may No No increase risk of falls Signs or symptoms of abuse and/or No No neglect since last visit Have you been in the hospital since your No No last visit? Has dressing in place as prescribed Yes Yes Has compression in place as prescribed N/A N/A Has offloadiing in place as prescribed N/A N/A Experienced any changes in pain level or No No management Left Footwear Regular Shoe Regular Shoe Right Footwear Regular Shoe Regular Shoe Pain Scale: 0-10 Numeric Is Patient Pain Free? Yes Yes - Nurse 1 - General Ulcer Measurement Start: 03/27/23 09:10 Freq: Status: Active Protocol: Activity Type Activity Date Activity User E-sign Co-sign Detail Recorded Client Recorded Date Recorded By Document 03/27/23 09:11 [facility] [id number] 03/27/23 09:17 [facility] Document 04/03/23 08:38 [facility] [id number] 04/03/23 08:45 [facility] 03/27/23 04/03/23 09:11 08:38 Wound Center Nurse 1 #1 Chin -Combined with other wound No No -Current Size (cm) - Length 0.1 1.9 -Current Size (cm) - Width 0.1 1 -Current Size (cm) - Depth 0.1 0.1 -Total Square Cm 0.01 1.9 -Date of Last Picture (Recall this 03/27/23 04/03/23 field) -Photo Taken Yes Yes -Epithelialization Large 67-100% None Present -Tunneling No No -Undermining/Tunneling No No -Circular Undermining No No -Exudate Amt Small -Exudate Type Serous -Wound Margin Distinct, Outline Attached -Granulation Amt Small (1-33%) -Granulation Quality [place] -Slough/Fibrin Yes -Necrosis Amt Large (67-100%) -Necrotic Tissue Type Adherent Slough -Texture (Candace-wound Skin Appearance) Assessed, Assessed, Scarring Scarring -Moisture (Candace-wound Skin Appearance) Assessed,Dry/ Assessed,Dry/ Scaly Scaly -Color (Candace-wound Skin Appearance) Assessed Assessed -Temperature (Candace-wound Skin No Abnormality No Abnormality Appearance) (Pt Warm) (Pt Warm) -Tenderness on Palpation (Candace-wound No No Skin Appearance) -Ulcer Cleansing Rinsed/ Rinsed/ Irrigated with Irrigated with Saline Saline -Foul Odor after Cleansing No No -Anesthetic Used 5% Lidocaine 5% Lidocaine Gel Gel - Nurse 2 - General Ulcer CM Notes Start: 03/27/23 09:10 Freq: Status: Active Protocol: Activity Type Activity Date Activity User E-sign Co-sign Detail Recorded Client Recorded Date Recorded By Document 03/27/23 09:34 MW [id number] 03/27/23 09:36 MW Document 04/03/23 08:56 MW [id number] 04/03/23 08:59 MW 03/27/23 04/03/23 09:34 08:56 Wound Center Nurse 2 #1 Chin -Time 09:35 08:58 -Correct Patient Yes Yes -Correct Side, Site, Position Yes Yes -Correct Procedure Yes Yes -Procedure Performed Yes Yes -Type of Procedure Debridement Debridement -Clinical Debridement Subcutaneous Subcutaneous -Tissue Removed Subcutaneous Subcutaneous -Post Debridement (cm) - Length 1.8 2.0 -Post Debridement (cm) - Width 1.5 1.0 -Post Debridement (cm) - Depth 0.3 0.3 -Total Square (Post) (cm) 2.70 2.00 -Area of Debridement (cm) - Length 1.8 2.0 -Area of Debridement (cm) - Width 1.5 1.0 -Total Square (Area) (cm) 2.70 2.00 -Tunneling No No -Undermining/Tunneling No No -Circular Undermining No No -Wound/Ulcer Outcome Not Healed Not Healed -Ulcer Cleansing Rinsed/ Rinsed/ Irrigated with Irrigated with Saline Saline -Foul Odor after Cleansing No No -Bioengineered Tissue No No -Bleeding Controlled with Pressure Pressure -Treatment Response Procedure Procedure Tolerated Well Tolerated Well -Offloading No No -Debridement - Subq, 1st 20sq cm Yes Yes Pain Scale: 0-10 Numeric Is Patient Pain Free? Yes Yes - Nurse 3 - General Ulcer D/C NN Start: 03/27/23 09:10 Freq: Status: Active Protocol: Activity Type Activity Date Activity User E-sign Co-sign Detail Recorded Client Recorded Date Recorded By Document 03/27/23 09:40 MW [id number] 03/27/23 09:40 MW Document 04/03/23 08:59 MW [id number] 04/03/23 09:00 MW 03/27/23 04/03/23 09:40 08:59 Wound Care Center Nurse 3 #1 Chin -Ulcer Cleansing Rinsed/ Rinsed/ Irrigated with Irrigated with Saline Saline -Foul Odor after Cleansing No No -Negative Pressure Wound Therapy N/A N/A -Primary Dressing Applied Fibracol Plus Fibracol Plus 4x4 4x4 -Other Dressing bactroban ointment -Primary Dressing Covered/Secured with Dry Gauze, Dry Gauze, Secured with Secured with Tape Tape -Fibracol Plus 4x4 1 1 Treatment Response Procedure Procedure Tolerated Well Tolerated Well Pain Scale: 0-10 Numeric Is Patient Pain Free? Yes Yes Teaching: Wound Center Dressing Your Wound -Person Taught Patient Patient,Family -Teaching Method Discussion Discussion, Demonstration -Response to teaching Verbalize Verbalize understanding understanding WC - Visit Discharge Discharge Condition Stable Stable Ambulatory Status Ambulatory Ambulatory Transportation Private Auto Private Auto Accompanied by self daughter Medication Reconcilliation completed & No No provided to patient/care provider Clinical Summary of Care Provided No Yes Assessment/Plan Assessment/Plan (1) Head and neck cancer: CODE(S): C76.0 - Malignant neoplasm of head, face and neck (2) Delayed surgical wound healing: CODE(S): T81.89XA - Other complications of procedures, not elsewhere classified, initial encounter QUALIFIERS: Encounter type: initial encounter Qualified Code(s): T81.89XA - Other complications of procedures, not elsewhere classified, initial encounter PLAN: Wash area with antibacterial soap and apply Bactroban to wound base nickel thickness then place fibrocol moistened cover with gauze and paper tape daily dressings Cultures obtained will call with results Follow-up in 1 week (3) Nonhealing surgical wound: CODE(S): T81.89XA - Other complications of procedures, not elsewhere classified, initial encounter QUALIFIERS: Encounter type: initial encounter Qualified Code(s): T81.89XA - Other complications of procedures, not elsewhere classified, initial encounter (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
[2023-04-10 08:36] VITALS: BP 132/62; PULSE 79; RESP 16; BMI 22.3
--- NOTE | 2023-04-10 10:02 | PN.PCM_ITS ---
History of Present Illness Date of Service: 04/10/23 Chief Complaint: 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 He received courses of chemotherapy followed by radiation treatments, which were concluded by the end of 2017. He recently underwent oral surgery and had 8 teeth extracted. Two extraction sites have failed to heal. On November 07, 2021, the patient underwent reconstruction of the jaw using bone from his left lower leg. He now has a chronic, non-healing surgical wound in the left sub- mandibular area. Progress of Wound: The wound in the submandibular area has completely healed over with new skin. He still has a divot but that will eventually fill and. Some have some irritation around the trach site which he itches because its dry. I suggested they use some absorbent cream like Eucerin or Cetaphil. May cover the area with gauze when out but actually can leave it open to air. Any more problems they can return Subjective Subjective Patient is very pleased with outcome so his daughter Objective Data Objective Data Patient will be discharged from the wound center today follow-up as needed can cover when outside with a gauze pad Vital Signs: Vital Signs Temp Pulse Resp BP O2 Del Method 97.9 F 79 16 132/62 H Room Air 04/03/23 08:38 04/10/23 08:36 04/10/23 08:36 04/10/23 08:36 04/10/23 08:36 Oxygen Delivery Method Room Air Weight: 130 lb Body Mass Index (BMI) 22.3 Lab / Micro Data Attestation: I reviewed the patient's lab results. Micro: Microbiology 04/03/23 09:00 Wound Abcess - Face Gram Stain - Final 04/03/23 09:00 Wound Abcess - Face Wound Culture - Final No growth aerobically. 04/03/23 09:00 Wound Abcess - Face Anaerobic Culture - Final No anaerobic bacteria isolated. Physical Exam Narrative ECOG 1 Hard of hearing Const alert, oriented x3 and no apparent distress General Appearance: cooperative and comfortable HEENT normocephalic HEENT Narrative: Reconstruction of the lower face, soft tissue edema Mouth: No thrush Eyes General Eye: normal appearance of both eyes Conjunctiva: conjunctiva normal Sclera: sclera normal Neck no lymphadenopathy and no JVD Neck Narrative: Postoperative changes and flap. Wound is covered with surgical dressing General: tracheostomy present Lymph Lymphatic: no lymphadenopathy noted Chest Chest: symmetrical chest wall rise Resp Auscultation: diminished lung sounds bilateral and diffuse Cardio regular rate and regular rhythm Jugular Venous Distention: Negative for JVD GI soft to palpation, non-tender and non-distended; Negative for hepatosplenomegaly GI Narrative: PEG tube Inspection: GI tube present no CVA tenderness Back/Spine no thoracic nor lumbar tenderness Extremity General Extremity: Negative for clubbing, cyanosis or edema Skin no rashes or lesions noted Neuro oriented x3, CN's II-XII intact bilaterally and moves all extremities Neuro Narrative: Bilateral symmetric wasting of first interosseous muscles. Coordination / Balance: [id number] test normal Speech: speech abnormal Gait (Neuro): normal gait Psych mental status grossly normal, thought process normal, cooperative and affect normal Debridement Note Debridement Note No debridement was completed: No debridement was completed today Post-Debridement Measurements and Additional Note: Post-Debridement Measurements/Treatment - Nurse 1 - General Ulcer Assessment Start: 03/27/23 09:10 Freq: Status: Active Protocol: BRANDAN Activity Type Activity Date Activity User E-sign Co-sign Detail Recorded Client Recorded Date Recorded By Document 03/27/23 09:11 [facility] [id number] 03/27/23 09:17 [facility] Document 04/03/23 08:38 [facility] [id number] 04/03/23 08:45 [facility] Document 04/10/23 08:36 [facility] [id number] 04/10/23 08:41 [facility] 03/27/23 04/03/23 04/10/23 09:11 08:38 08:36 - Today's Visit Information Type of service Follow-up Visit Follow-up Visit Follow-up Visit (Physician/RELATIONS COORDINATOR (Physician/RELATIONS COORDINATOR (Physician/RELATIONS COORDINATOR ) ) ) Arrival Mode Ambulatory Ambulatory Ambulatory Transfer Assistance None None None Accompanied by daughter daughter Patient Identification Verified (Name & Yes Yes Yes ) Patient Requires Transmission-Based No No No Precautions Height and Weight Body Mass Index (BMI) 22.3 22.3 22.3 BMI Classification Normal Normal Normal Vital Signs Temperature (97.8 F-99.1 F) 97.9 F 97.9 F Temperature Source Temporal Temporal Pulse Rate (60-100) 64 70 79 Pulse Location Monitor Monitor Monitor Respiratory Rate (12-18) 16 16 16 Respiratory rate source Observation Observation Observation Oxygen Delivery Method Room Air Room Air Room Air Blood Pressure (90/60-120/80) 117/62 125/54 H 132/62 H Blood Pressure Mean (mm Hg) 80 77 85 Source Monitor Monitor Monitor Position Sitting Sitting Sitting Blood Pressure Location Left Arm Left Arm Left Arm History Since Last Visit- (Skip if this is Patient's initial visit) Have you changed medications since your No No No last visit? Any new allergies or adverse reactions No No No Had a fall/change in ADL's that may No No No increase risk of falls Signs or symptoms of abuse and/or No No No neglect since last visit Have you been in the hospital since your No No No last visit? Has dressing in place as prescribed Yes Yes Yes Has compression in place as prescribed N/A N/A N/A Has offloadiing in place as prescribed N/A N/A N/A Experienced any changes in pain level or No No No management Left Footwear Regular Shoe Regular Shoe Regular Shoe Right Footwear Regular Shoe Regular Shoe Regular Shoe Pain Scale: 0-10 Numeric Is Patient Pain Free? Yes Yes Yes WC - Nurse 1 - General Ulcer Measurement Start: 03/27/23 09:10 Freq: Status: Active Protocol: Activity Type Activity Date Activity User E-sign Co-sign Detail Recorded Client Recorded Date Recorded By Document 03/27/23 09:11 [facility] [id number] 03/27/23 09:17 [facility] Document 04/03/23 08:38 [facility] [id number] 04/03/23 08:45 [facility] Document 04/10/23 08:36 [facility] [id number] 04/10/23 08:41 [facility] 03/27/23 04/03/23 04/10/23 09:11 08:38 08:36 Wound Center Nurse 1 #1 Chin -Combined with other wound No No No -Current Size (cm) - Length 0.1 1.9 0.1 -Current Size (cm) - Width 0.1 1 0.1 -Current Size (cm) - Depth 0.1 0.1 0.1 -Total Square Cm 0.01 1.9 0.01 -Date of Last Picture (Recall this 03/27/23 04/03/23 04/10/23 field) -Photo Taken Yes Yes Yes -Epithelialization Large 67-100% None Present Large 67-100% -Tunneling No No No -Undermining/Tunneling No No No -Circular Undermining No No No -Exudate Amt Small Small -Exudate Type Serous Serous -Wound Margin Distinct, Flat & Intact Outline Attached -Granulation Amt Small (1-33%) -Granulation Quality [place] -Slough/Fibrin Yes -Necrosis Amt Large (67-100%) -Necrotic Tissue Type Adherent Slough -Texture (Candace-wound Skin Appearance) Assessed, Assessed, Assessed, Scarring Scarring Scarring -Moisture (Candace-wound Skin Appearance) Assessed,Dry/ Assessed,Dry/ Assessed Scaly Scaly -Color (Candace-wound Skin Appearance) Assessed Assessed Assessed -Temperature (Candace-wound Skin No Abnormality No Abnormality No Abnormality Appearance) (Pt Warm) (Pt Warm) (Pt Warm) -Tenderness on Palpation (Candace-wound No No No Skin Appearance) -Ulcer Cleansing Rinsed/ Rinsed/ Rinsed/ Irrigated with Irrigated with Irrigated with Saline Saline Saline -Foul Odor after Cleansing No No No -Anesthetic Used 5% Lidocaine 5% Lidocaine 5% Lidocaine Gel Gel Gel WC - Nurse 2 - General Ulcer CM Notes Start: 03/27/23 09:10 Freq: Status: Active Protocol: Activity Type Activity Date Activity User E-sign Co-sign Detail Recorded Client Recorded Date Recorded By Document 03/27/23 09:34 MW [id number] 03/27/23 09:36 MW Document 04/03/23 08:56 MW [id number] 04/03/23 08:59 MW Document 04/10/23 08:48 MW [id number] 04/10/23 08:51 MW 03/27/23 04/03/23 04/10/23 09:34 08:56 08:48 Wound Center Nurse 2 #1 Chin -Time 09:35 08:58 08:50 -Correct Patient Yes Yes Yes -Correct Side, Site, Position Yes Yes Yes -Correct Procedure Yes Yes Yes -Procedure Performed Yes Yes No -Type of Procedure Debridement Debridement -Clinical Debridement Subcutaneous Subcutaneous -Tissue Removed Subcutaneous Subcutaneous -Post Debridement (cm) - Length 1.8 2.0 0 -Post Debridement (cm) - Width 1.5 1.0 0 -Post Debridement (cm) - Depth 0.3 0.3 0 -Total Square (Post) (cm) 2.70 2.00 0 -Area of Debridement (cm) - Length 1.8 2.0 -Area of Debridement (cm) - Width 1.5 1.0 -Total Square (Area) (cm) 2.70 2.00 -Tunneling No No No -Undermining/Tunneling No No No -Circular Undermining No No No -Wound/Ulcer Outcome Not Healed Not Healed Healed- Epithelialized -Ulcer Cleansing Rinsed/ Rinsed/ Irrigated with Irrigated with Saline Saline -Foul Odor after Cleansing No No -Bioengineered Tissue No No -Bleeding Controlled with Pressure Pressure NA -Treatment Response Procedure Procedure Tolerated Well Tolerated Well -Offloading No No -Debridement - Subq, 1st 20sq cm Yes Yes Pain Scale: 0-10 Numeric Is Patient Pain Free? Yes Yes Yes WC - Nurse 3 - General Ulcer D/C NN Start: 03/27/23 09:10 Freq: Status: Active Protocol: Activity Type Activity Date Activity User E-sign Co-sign Detail Recorded Client Recorded Date Recorded By Document 03/27/23 09:40 MW [id number] 03/27/23 09:40 MW Document 04/03/23 08:59 MW [id number] 04/03/23 09:00 MW Document 04/10/23 08:51 MW [id number] 04/10/23 08:52 MW 03/27/23 04/03/23 04/10/23 09:40 08:59 08:51 Wound Care Center Nurse 3 #1 Chin -Ulcer Cleansing Rinsed/ Rinsed/ Irrigated with Irrigated with Saline Saline -Foul Odor after Cleansing No No -Negative Pressure Wound Therapy N/A N/A -Primary Dressing Applied Fibracol Plus Fibracol Plus 4x4 4x4 -Other Dressing bactroban ointment -Primary Dressing Covered/Secured with Dry Gauze, Dry Gauze, Dry Gauze, Secured with Secured with Secured with Tape Tape Tape -Fibracol Plus 4x4 1 1 Treatment Response Procedure Procedure Procedure Tolerated Well Tolerated Well Tolerated Well Pain Scale: 0-10 Numeric Is Patient Pain Free? Yes Yes Yes Teaching: Wound Center Discharge Instructions -Person Taught Patient,Family -Teaching Method Discussion -Response to teaching Verbalize understanding Dressing Your Wound -Person Taught Patient Patient,Family -Teaching Method Discussion Discussion, Demonstration -Response to teaching Verbalize Verbalize understanding understanding WC - Visit Discharge Discharge Condition Stable Stable Stable Ambulatory Status Ambulatory Ambulatory Ambulatory Transportation Private Auto Private Auto Private Auto Accompanied by self daughter daughter Medication Reconcilliation completed & No No No provided to patient/care provider Clinical Summary of Care Provided No Yes Yes Assessment/Plan Assessment/Plan (1) Head and neck cancer: CODE(S): C76.0 - Malignant neoplasm of head, face and neck (2) Delayed surgical wound healing: CODE(S): T81.89XA - Other complications of procedures, not elsewhere classified, initial encounter QUALIFIERS: Encounter type: initial encounter Qualified Code(s): T81.89XA - Other complications of procedures, not elsewhere classified, initial encounter PLAN: Wound cultures came back negative first time ever Patient has healed and will be discharged from the wound center he can follow-up as needed Daughter wants to cover it when he is outside working in the garden which is fine it is new skin but basically it is all healed Follow-up as needed (3) Nonhealing surgical wound: CODE(S): T81.89XA - Other complications of procedures, not elsewhere classified, initial encounter QUALIFIERS: Encounter type: initial encounter Qualified Code(s): T81.89XA - Other complications of procedures, not elsewhere classified, initial encounter (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
== END 2023-04-10 15:33 | disposition home or self-care (01) ==
LOC: WC 08:30
PROVIDERS: PCP Nurse Practitioner; Referring Provider Nurse Practitioner; Visit Provider Nurse Practitioner
DX: T81.89XA Other complications of procedures, not elsewhere classified, initial encounter (principal); Z93.0 Tracheostomy status; L59.8 Other specified disorders of the skin and subcutaneous tissue related to radiation; Y84.2 Radiological procedure and radiotherapy as the cause of abnormal reaction of the patient, or of later complication, without mention of misadventure at the time of the procedure; Z79.890 Hormone replacement therapy; Z79.899 Other long term (current) drug therapy; Z92.21 Personal history of antineoplastic chemotherapy; Z92.3 Personal history of irradiation; Z85.89 Personal history of malignant neoplasm of other organs and systems
CPT/HCPCS: 11042; 87070; 87075; 87205; 99213; G0463

== ENCOUNTER → 2023-07-29 | Outpatient (CLI) | payer OTHER, SELFPAY ==
[2022-01-31 09:09] VITALS: BMI 22.6
--- NOTE | 2023-07-29 07:54 | CT_ITS ---
STUDY: CT CHEST WITH CONTRAST REASON FOR EXAM: Male, 63 years old. f/u mets, head and neck CA -- IV contrast RADIATION DOSAGE (If Supplied By Facility): CTDIvol = ( 10.39 ) mGy, DLP = ( 492.83 ) mGycm TECHNIQUE: Transaxial imaging was performed following intravenous administration of IV 100mL Isovue-300. Multiplanar coronal and sagittal images were reformatted. Individualized dose optimization techniques were used for this CT. COMPARISON: Comparison is made with prior CT scan the chest dated January 28, 2023. FINDINGS: CHEST A tracheostomy tube is in situ. Stable benign-appearing small bilateral. Interstitial scarring is seen in the lung apices more prominent in the right lung apex. Stable 5.4 mm noncalcified nodule in the lateral aspect of the right upper lobe as seen on axial image #69 and 70. There is no demonstrated pleural abnormality. Normal heart and pericardium. There are small lymph nodes within the mediastinum, which are normal in size and morphology most compatible with reactive lymph hyperplasia. Normal hilar regions. Normal unenhanced pulmonary arteries. Normal aorta arch and descending thoracic aorta. There are multi-level degenerative changes of the thoracic spine. There is no demonstrated abnormality of the visualized upper abdomen. CT/Chest WITH Contrast IMPRESSION: Stable examination. Electronically Signed: Bib Reeves MD at 13:20 EST ,
--- NOTE | 2023-07-29 07:54 | CT_ITS ---
STUDY: CT SOFT TISSUE NECK WITH CONTRAST REASON FOR EXAM: Male, 63 years old. f/u mets, head and neck cancer RADIATION DOSAGE (If Supplied By Facility): CTDIvol = ( 10.39 ) mGy, DLP = ( 492.83 ) mGycm TECHNIQUE: The patient was scanned in a multi-detector CT scanner. High resolution transaxial imaging was performed following intravenous administration of IV 100mL Isovue-300. Sagittal and coronal images were reconstructed. Individualized dose optimization techniques were used for this CT. COMPARISON: Comparison is made with prior study dated January 28, 2023. FINDINGS: A tracheostomy tube is in situ. Diffuse overlying skin thickening and increased markings in the subcutaneous fat suggestive of subcutaneous edema. Once again, the patient is status post screw and plate fixation of the mandible. Normal bilateral parotid glands. Normal bilateral screener operator spaces. Normal bilateral parapharyngeal spaces. Normal bilateral carotid spaces. Normal bilateral sublingual and submandibular glands and spaces. Normal visualized nasopharynx. Normal retropharyngeal space. Normal perivertebral space. Normal visualized bilateral faucial tonsils. The visualized tongue, tongue base and oropharynx are normal. The visualized cervical lymph nodes (levels I-) are within normal size limits, and maintain normal morphology. There is no demonstrated solid or cystic mass lesion. There is no abnormal contrast enhancement. Normal epiglottis, bilateral vallecula and hypopharynx. The pre-epiglottic and paraglottic adipose spaces are normal. Normal visualized bilateral piriform sinuses, aryepiglottic folds, vocal cords, and arytenoid-cricoid articulations. Normal subglottic trachea. Normal bilateral lobes of the thyroid gland. Normal visualized pulmonary apices. Stable partial opacification of the left maxillary sinus. There is multilevel degenerative changes of the cervical spine. CT/Soft Tissue Neck WITH Contrast IMPRESSION: Stable examination. Electronically Signed: Bib Reeves MD at 13:23 EST ,
[2023-07-29 08:26] LABS: CREATININE FINGERSTICK < 0.9 mg/dL (0.70-1.30); EGFR FINGERSTICK > 60.0000 mL/min (>60)
== END | disposition home or self-care (01) ==
LOC: CT 07:53
PROVIDERS: PCP Nurse Practitioner; Referring Provider Internal Medicine Hematology & Oncology; Visit Provider Internal Medicine Hematology & Oncology
DX: C76.0 Malignant neoplasm of head, face and neck (principal); R91.8 Other nonspecific abnormal finding of lung field
CPT/HCPCS: 70491; 71260; Q9967

== ENCOUNTER → 2023-08-05 | Outpatient (CLI) | payer OTHER, SELFPAY ==
[2022-01-31 09:09] VITALS: BMI 22.6
--- NOTE | 2023-08-05 13:04 | ST.MBS ---
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 Medical History: The pt is a 63-year-old male diagnosed with clinical stage NOREEN (cTx cN2b M0) p16 negative SCC of unknown primary with left neck adenopathy in level 2-[address] neck and chest (12/17/2018), ultrasound-guided FNA of the left neck mass (12/22/2018), PET scan (01/05/2019), triple endoscopy with targeted left tonsillectomy (01/30/2019). From 02/10/2019 ? 03/25/2019 he received definitive chemoradiation therapy. 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 11/07/2021: PEG tube placement, tracheostomy, composite resection of oral cavity, excision of skin and soft tissue, segmental mandibulectomy, right selective neck dissection and left neck exploration for vessels. Reconstruction was thigh free flap and had complex neck closure with split thickness skin graft. Trach was removed following surgery on 12/05/2021 with the trach re-inserted due to difficulty breathing when lying flat. Pt has followed with OP ST during and after radiation treatment. Most recent MBSS 06/15/22 recommended moist puree textures / thin liquids with strict aspiration precautions and GI consult. Patient is due for annual MBSS to reassess risk for worsening swallow function s/p radiation treatment. Current Diet Ordered: Moist purees / Thin liquids Dentition: Edentulous Mental Status: WNL Respiratory Status: Oxygenating on Room Air (trach) Penetration-Aspiration Scale Penetration-Aspiration Scale: OBJECTIVE ASSESSMENT OF SWALLOW FUNCTION (QUANTITATIVE ? PER TRIAL): PENETRATION / ASPIRATION SCALE (SENIOR): 1 = does not enter airway 2 = enters airway/above vocal folds/ejected 3 = enters airway/above vocal folds/not ejected 4 = enters airway/contacts vocal folds/ejected 5 = enters airway/contacts vocal folds/not ejected 6 = enters airway/below vocal folds/ejected 7 = enters airway/below vocal folds/not ejected despite effort 8 = enters airway/below vocal folds/no effort VIDEOFLOROSCOPIC SCALE SCORE (SENIOR): Grade I = aspiration of material that has penetrated into the laryngeal vestibule, intact cough reflex Grade II = aspiration < 10 % of the bolus, intact cough reflex Grade III = aspiration of < 10 % of the bolus, reduced cough reflex or aspiration of > 10 % of the bolus, intact cough reflex Grade IV = aspiration of > 10 % of the bolus, reduced cough reflex Penetration-Aspiration Scale Score Thin Liquid via teaspoon: Result: 5= enters airways/contacts vocal folds/not ejected Thin Liquid via small single sip: cup: Result: 5= enters airways/contacts vocal folds/not ejected Thin Liquid via small single sip: cup - Cued cough and re-swallow: Result: 4= enters airway/contacts vocal folds/ejected Walsh Thick Liquid via small single sip: cup: Result: 2= enter airway/above vocal folds/ejected Pudding via teaspoon: Result: 1= does not enter airway Thin Liquid via sequential sips:straw: Result: 8= enters airway/below vocal folds/no effort (Cued cough and re-swallow after aspiration occurred, which somewhat cleared the aspirated contrast) Thin Liquid via small single sip: cup - Cued cough and re-swallow Trial 2: Result: 3= enters airways/above vocal folds/not ejected Comment: Post prandial aspiration of previous trial evident during this trial Walsh Thick Liquid via small single sip: cup Trial 2: Result: 1= does not enter airway Oral Phase Labial Seal: Escape beyond mid-chin Tongue Control During Bolus Hold: Posterior escape of less than half of bolus Bolus Transport/Lingual Motion: Delayed initiation of tongue motion Oral Residue: Residue collection on oral structures Pharyngeal Phase Initiation of Pharyngeal Swallow: Bolus head in pyriforms Soft Palate Elevation: No bolus between soft palate and pharyngeal wall Laryngeal Elevation: Min superior movement thyroid cart/min apprx aryte cart-epig petiole Anterior Hyoid Excursion: No anterior movement Epiglottic Movement: No inversion Laryngeal Vestibule Closure at Height of Swallow: Incomplete; narrow column of air/contrast in laryngeal vestibule Pharyngeal Stripping Wave: Present - diminished (minimal) Pharyngoesophageal Segment Opening: Minimal distension and minimal duration; marked obstruction of flow Tongue Base Retraction: Wide column of contrast between tongue base & post. pharyngeal wall Pharyngeal Residue: Majority of contrast within or on pharyngeal structures Diagnosis/Impression Diagnosis: Severe oropharyngeal phase dysphagia R13.12 Impression: Severe oral phase deficits characterized by delayed tongue motion for A-P transport and decreased bolus control with loss of <1/2 the bolus to the pyriforms prior to swallow onset. Did not assess cookie due to high choking risk with solids due to edentulous status and poor pharyngeal clearance of pudding. Severe pharyngeal phase impairment characterized by minimal pharyngeal stripping wave, partial laryngeal elevation, no anterior hyoid excursion, and no epiglottic inversion. Due to severe impairment, he has resulting aspiration of thin liquids during and after the swallow, especially with large sequential sips. Cough and re-swallow was most effective in decreasing the amount of aspiration. He is at risk to aspirate all consistencies after the swallow, as the thicker viscosities resulted in increased pharyngeal residues. Recommendations Diet: Puree Textures (Moist purees or liquidized food) and Thin Liquids Comment: Oral care throughout the day, including before and after every meal. Continue use of PEG tube to supplement oral intake as needed. Compensatory Strategies: Liquid by Teaspoon Only (Cough and re-swallow after EVERY sip), Slow Rate, Multiple Swallows, Alternate bites/solids and sips/liquids, Sitting upright and Remain sitting upright for 30 minutes after PO intake Recommend Repeat Modified Barium Swallow: Yes (6-12 months to monitor risk for worsening dysphagia/aspiration risk. Will repeat sooner if concern for worsening diet tolerance or respiratory status.) Need for Skilled Speech Therapy Services: Yes Comment: PRODUCTION CONTROL ANALYST spoke with radiation oncologist, Dr. Sellers, to discuss if the patient is appropriate for participation in myofascial release of the anterior neck in junction with oropharyngeal strengthening to promote improved soft tissue mobility. Patient's recent CT scans have been clear of disease and Dr. Sellers is agreeable to the patient participating in myofascial release. PRODUCTION CONTROL ANALYST will also clear myofascial release with patient's physician at the wound center to ensure it would not irritate the healing of his wound on his L anterior neck. Recommended Referrals: GI Consult (Please consider this patient for dilation, very narrow and decreased opening/duration of upper esophageal sphincter) Education Completed: 1. Described result of evaluation. Status Active ST Patient: Active Contact Information [facility] Speech Therapy:: Latosha Boyer M.A. [facility]PRODUCTION CONTROL ANALYST Speech-Language Pathologist [facility] [address] [place] [address] [email or web address] [phone]
== END | disposition home or self-care (01) ==
LOC: RAD 13:03
PROVIDERS: PCP Nurse Practitioner; Visit Provider Student in an Organized Health Care Education/Training Program
DX: C04.9 Malignant neoplasm of floor of mouth, unspecified (principal)
CPT/HCPCS: 74230; 92611

== ENCOUNTER 2023-09-03 12:43 | Day surgery (SDC) | payer OTHER, SELFPAY ==
[2022-01-31 09:09] VITALS: BMI 22.6
[2023-09-03 13:18] VITALS: BP 131/75; PULSE 66; RESP 18; TEMP 36.6; O2SAT 100; BMI 20.9
[2023-09-03] MEDS: Lactated Ringers 1,000 ML 15 ML IV (13:21)
--- NOTE | 2023-09-03 13:45 | EGD_PTH ---
PATIENT: MY PEREZ LOC: EN U#:[id number] AGE/SX: 63/M ROOM: RE09/03/[address]: Dr. Elliott Akhtar DO : 1960 BED: DIS: 09/03/2023 SPEC #: [id number] RECD: 09/04/23 07:48 STATUS: ALEX ANDRES #: [id number] SHANTELL: 09/03/23 13:[address]: Elliott Akhtar DEPT: SURGICAL PATHOLOGY RECD BY: Hortencia Palmer ENTERED: 09/04/23 07:49 SP TYPE: EGD BIOPSY OT DR: Kya Anderson, [employer]NER-C Tissues: Esophageal mucous membrane Procedures: Surgery Specimen Level IV HEADER OPERATION: EGD with biopsies and dilatation PRE-OP DIAGNOSIS: Esophageal dysphagia TISSUE SUBMITTED: Proximal esophagus biopsy MICROSCOPIC DIAGNOSIS Proximal esophagus, biopsy: Fragments of benign squamous mucosa. No evidence of inflammation. AM:evy 09/05/2023 MICROSCOPIC DESCRIPTION Slides are reviewed. GROSS DESCRIPTION Received in fixative is one container labeled with the patient's name and designated proximal esophagus biopsy. The specimen consists of multiple irregular fragments of light mcmahon soft tissue that in aggregate measure 2.0 x 0.4 x 0.1 cm. The specimen is totally submitted in one cassette. / SJ:evy 09/04/2023 TC:5 CPT: 53532
--- NOTE | 2023-09-03 14:00 | HP.PCM_ITS ---
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 Underwent radiation with concurrent carboplatin for head/neck cancer. At follow up it was noted he has dysphagia. ? Modified Barium 04.13.22 moderate oropharyngeal dysphagia, mild esophageal dysphasia. ? Modified Barium 06.15.22 moderate-severe oropharyngeal phase dysphagia, puree texture. ? Modified Barium 08.05.23 severe oropharyngeal phase dysphagia, recommend puree texture. High risk for aspiration *I established 08.30.23 he has had a tracheostomy for the last two years. He has been having difficulty swallowing foods with history as above. Daughter is concerned regarding frequent pneumonia during the winter months. ROS Const Constitutional: No anorexia, fatigue, fever(s), weight change or sleep problems Eyes Eyes: No change in vision ENT ENT: No abnormal hearing, difficulty swallowing, mouth lesions, tongue swelling or throat swelling Resp Respiratory: No cough or shortness of breath Cardio Cardiology: No chest pain at rest, chest pain with exertion, shortness of breath or dyspnea on exertion Gastro GI: No difficulty swallowing Genitourinary Male: No difficulty urinating or burning urination Musc Musculoskeletal: No joint pain, joint swelling, muscle weakness or decreased muscle mass Skin Skin: No hair loss in leg, yellowing of the eye, itchy eyes, rash, skin ulcer or skin swelling Neuro Neurology: No abnormal hearing, abnormal movements, confusion, unsteady gait/balance or memory loss Psych Psychiatric: No anxiety, No confusion and No memory loss Endo Endocrine: No fatigue or weight change Aller/Imm Allergy/Immunologic: No itchy eyes, throat swelling or tongue swelling Mark/Lymp Hematologic/Lymphatic: No easy bleeding, easy bruising or enlarged lymph nodes Exam Const General: cooperative and comfortable Nutritional Appearance: average body habitus and well nourished [facility] Head: normal to inspection Ears: hearing grossly normal bilaterally Nose: external nose normal Face and sinus: normal facial exam Mouth: oral mucosae normal Throat: posterior oropharynx normal Eyes General: appearance normal, both eyes and all related structures Neck Neck: normal visual inspection Chest Chest palpation & inspection: normal inspection of the chest and normal palpation of entire chest wall Resp Effort & Inspection: normal respiratory effort Auscultation: Bilateral: Clear to Auscultation Cardio Palpation: normal PMI Rate: regular rate Rhythm: regular rhythm GI Inspection: normal to inspection Auscultation: normal bowel sounds Percussion: normal to percussion Palpation: no hepatosplenomegaly Skin General: no rashes or lesions noted Neuro General: patient alert Extrem General: normal to inspection Psych Affect: normal affect Quality Reporting Tobacco Screening ([facility] 138) Smoking Status: Former smoker Assessment and Plan Assessment and Plan (1) Esophageal dysphagia: Status: Chronic Plan: 62-year-old male with a diagnosis of 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 Patient is status post tonsillectomies and uveal excision yet no primary identified. Received concomitant chemoradiation January through March 2019 tolerated with expected but no excessive toxicities. He was in complete remission went on surveillance with no evidence to suggest cancer recurrence until August 2021. Indeterminate too small to further characterize lung nodules on initial staging chest CT of November 2018 remains stable for 2 years on imaging through February 2021. 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 Restaging did not suggest systemic disease. October 2021 he underwent radical surgery. Received adjuvant combined modality therapy with radiation and weekly carboplatin chemosensitization November?January. 11/07/2021: PEG tube placement, tracheostomy, composite resection of oral cavity, excision of skin and soft tissue, segmental mandibulectomy, right selective neck dissection and left neck exploration for vessels. Reconstruction was thigh free flap and had complex neck closure with split thickness skin graft. Trach was removed following surgery on 12/05/2021 with the trach re-inserted due to difficulty breathing when lying flat. Pt has followed with OP ST during and after radiation treatment. Most recent MBSS 06/15/22 recommended moist puree textures / thin liquids with strict aspiration precautions and GI consult for dilation, very narrow and decreased opening/duration of upper esophageal sphincter. He will undergo an upper endoscopy to evaluate his upper GI tract. He was explained alternatives, risk, benefits including not withstanding bleeding, infection, sepsis, perforation, need for redo surgery. He will have an ASA of 3. I have examined the patient and the H&P has been reviewed. There are no clinical changes since date of exam.
[2023-09-03 14:30] VITALS: BP 131/75; BP 93/61; PULSE 62; RESP 16; TEMP 36.3; O2SAT 98
[2023-09-03 14:35] VITALS: BP 131/75; BP 83/62; PULSE 61; RESP 16; O2SAT 97
--- NOTE | 2023-09-03 14:37 | OP.CCLET_ITS ---
09/03/2023 Kya Anderson NP [address] [place] [address] Re : Upper GI endoscopy procedure for Dread [place] Dear Ms. Anderson This procedure was performed on Sunday, September 03, 2023. My impressions and recommendations are as follows: Impressions : - Expiratory glottic narrowing was found. - The nasopharynx and oropharynx are abnormal. - Surgically absent larynx. - Esophageal mucosal changes suggestive of eosinophilic esophagitis. - Benign-appearing esophageal stenosis. Dilated. - Small hiatal hernia. - No gross lesions in the entire stomach. - No gross lesions in the first portion of the duodenum. - Biopsies were taken with a cold forceps for evaluation of eosinophilic esophagitis. Recommendations : - Discharge patient to home. - Resume previous diet. - Continue present medications. - Await pathology results. - Repeat upper endoscopy to evaluate the response to therapy. My findings are described in the full procedure note, which is enclosed. If I can be of further assistance, please feel free to contact me at . Sincerely, Elliott Akhtar, 09/03/2023 2:37:18 PM This report has been signed electronically.
--- NOTE | 2023-09-03 14:37 | OP.EGD_ITS ---
Patient Name: Dread Jama Procedure Date: 09/03/2023 2:00 PM Date of : 1960 Age: 63 Procedure: Upper GI endoscopy Indications: Dysphagia Providers: Elliott Akhtar DO Medicines: Monitored Anesthesia Care Patient Profile: This is a 63 year old male. Refer to note in patient chart for documentation of history and physical. Patient has symptoms of dysphagia with both liquids and solids. The patient is status-post surgical alteration of the upper digestive tract anatomy. Complications: No immediate complications. Procedure: Pre-Anesthesia Assessment: - Prior to the procedure, a History and Physical was performed, and patient medications and allergies were reviewed. The patient is competent. The risks and benefits of the procedure and the sedation options and risks were discussed with the patient. All questions were answered and informed consent was obtained. Patient identification and proposed procedure were verified by the physician in the pre-procedure area. Mental Status Examination: alert and oriented. Airway Examination: normal oropharyngeal airway and neck mobility. Respiratory Examination: clear to auscultation. CV Examination: normal. Prophylactic Antibiotics: The patient does not require prophylactic antibiotics. Prior Anticoagulants: The patient has taken no anticoagulant or antiplatelet agents. ASA Grade Assessment: III - A patient with severe systemic disease. After reviewing the risks and benefits, the patient was deemed in satisfactory condition to undergo the procedure. The anesthesia plan was to use monitored anesthesia care (MAC). Immediately prior to administration of medications, the patient was re-assessed for adequacy to receive sedatives. The heart rate, respiratory rate, oxygen saturations, blood pressure, adequacy of pulmonary ventilation, and response to care were monitored throughout the procedure. The physical status of the patient was re-assessed after the procedure. After obtaining informed consent, the endoscope was passed under direct vision. Throughout the procedure, the patient's blood pressure, pulse, and oxygen saturations were monitored continuously. The Endoscope was introduced through the mouth, and advanced to the second part of duodenum. The upper GI endoscopy was accomplished without difficulty. The patient tolerated the procedure well. Scope In: 2:09:55 PM Scope Out: 2:25:05 PM Total Procedure Duration Time 0 hours 15 minutes 10 seconds Findings: Expiratory glottic narrowing. The nasopharynx and oropharynx are abnormal. The larynx was surgically absent. Mucosal changes including ringed esophagus were found in the upper third of the esophagus. Biopsies were obtained from the proximal and distal esophagus with cold forceps for histology of suspected eosinophilic esophagitis. Verification of patient identification for the specimen was done. Estimated blood loss was minimal. One benign-appearing, intrinsic severe (stenosis; an endoscope cannot pass) stenosis was found 18 to 23 cm from the incisors. This stenosis measured 2 mm (inner diameter) x 5 cm (in length). The stenosis was traversed after downsizing scope and dilating. A guidewire was placed and the scope was withdrawn. Dilation was performed with a Savary dilator with no resistance at 42 Fr. The dilation site was examined and showed moderate mucosal disruption. Estimated blood loss was minimal. A small hiatal hernia was present. No gross lesions were noted in the entire examined stomach. No gross lesions were noted in the first portion of the duodenum. Impression: - Expiratory glottic narrowing was found. - The nasopharynx and oropharynx are abnormal. - Surgically absent larynx. - Esophageal mucosal changes suggestive of eosinophilic esophagitis. - Benign-appearing esophageal stenosis. Dilated. - Small hiatal hernia. - No gross lesions in the entire stomach. - No gross lesions in the first portion of the duodenum. - Biopsies were taken with a cold forceps for evaluation of eosinophilic esophagitis. Recommendation: - Discharge patient to home. - Resume previous diet. - Continue present medications. - Await pathology results. - Repeat upper endoscopy to evaluate the response to therapy. Procedure Code(s): --- Professional --- 35808, Esophagogastroduodenoscopy, flexible, transoral; with insertion of guide wire followed by passage of dilator(s) through esophagus over guide wire 72941, 59,51, Esophagogastroduodenoscopy, flexible, transoral; with biopsy, single or multiple CPT copyright 2021 [employer]. All rights reserved. The codes documented in this report are preliminary and upon golf professional review may be revised to meet current compliance requirements. Elliott Akhtar DO 09/03/2023 2:37:18 PM This report has been signed electronically. Number of Addenda: 0 Note Initiated On: 09/03/2023 2:00 PM
[2023-09-03 14:40] VITALS: BP 131/75; BP 86/59; PULSE 56; RESP 16; O2SAT 98
[2023-09-03 14:50] VITALS: BP 105/66; BP 131/75; PULSE 57; RESP 16; TEMP 36.3; O2SAT 100
[2023-09-03 15:14] VITALS: BP 131/75
== END 2023-09-03 15:15 | disposition home or self-care (01) ==
LOC: EN 12:44 → AC 12:45
PROVIDERS: PCP Nurse Practitioner; Referring Provider Nurse Practitioner; Visit Provider Internal Medicine Gastroenterology
PROC: 0DJ08ZZ Inspection of Upper Intestinal Tract, Via Natural or Artificial Opening Endoscopic (ICD-10-PCS; CPT 43235; principal; 2023-09-03 13:40)
DX: R13.19 Other dysphagia (principal); Z93.0 Tracheostomy status; K44.9 Diaphragmatic hernia without obstruction or gangrene; Z87.891 Personal history of nicotine dependence; Z90.02 Acquired absence of larynx; K22.2 Esophageal obstruction; Z85.89 Personal history of malignant neoplasm of other organs and systems; K31.89 Other diseases of stomach and duodenum
CPT/HCPCS: 43248; 43239; 88305; J7120; C1769; J2405

== ENCOUNTER 2023-11-01 09:30 | Outpatient (RCR) | payer OTHER, SELFPAY ==
[2021-12-07 14:14] VITALS: BMI 22.6
--- NOTE | 2021-12-20 11:04 | HP.SP.AD_ITS ---
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 Recommendations are for a mechanical soft textured and thin liquid diet. Exercises and other strategies were recommended, and speech therapy will continue to follow-up. 03/30/2020: swallow study was performed. Recommendations are for regular/soft textured and thin liquid diet. Other Relevant Medical History/Diagnoses/Surgery: The pt is a 61-year-old male diagnosed with clinical stage NOREEN (cTx cN2b M0) p16 negative SCC of unknown primary with left neck adenopathy in level 2-[address] neck and chest (12/17/2018), ultrasound-guided FNA of the left neck mass (12/22/2018), PET scan (01/05/2019), triple endoscopy with targeted left tonsillectomy (01/30/2019). From 02/10/2019 ? 03/25/2019 he received definitive chemoradiation therapy consisting of 6996 cGy in 33 fractions with concurrent high dose cisplatin. 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 The pt is planned for radiation therapy with plans to meet with medical oncology soon to discuss the addition of chemotherapy. 11/07/2021: Patient underwent direct laryngoscopy, flexible bronchoscopy, flexible esophagoscopy, PEG tube placement, tracheostomy, composite resection of oral cavity, excision of skin and soft tissue measuring 8 x 9 cm, segmental mandibulectomy, right selective neck dissection of levels 1 through 4 and left neck exploration for vessels. Reconstruction was thigh free flap and had compl ex neck closure with split thickness skin graft. Trach and PEG tube placed. 11/09/2021. Postoperative course was complicated by arterial clotting and taken back to the OR for arterial release, flap checks were stable following the takeback. 12/05/2021: Trach re-inserted due to difficulty breathing when lying flat. 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 He feels restricted lingual ROM due to edema. Objective Oral Motor - Oral Status Additional: Edentulous - FOM with severe edema. - Labial Impairment: Mild Pucker: Moderate Retraction: Mild - Labial Comments Comments: Severe edema - Lingual Impairment: Mild Protrusion: Moderate Lateralization: Mild - Jaw Impairment: Mild Opening: Severe Opening Measurement: 21mm - Jaw Comments Comments: Severe edema along jawline, especially under chin - Oral Motor Comments Comments: TRIGEMINAL NERVE (V) ? Decreased laryngeal elevation upon palpation ? pt?s neck with severe fibrosis from previous radiation treatment, especially on L side. FACIAL NERVE (VII) ? no clinical abnormalities observed. VAGUS NERVE (X) ? Unable to inspect palate due to edema. Palate sensation intact bilaterally. Hoarse vocal quality. HYPOGLOSSAL NERVE (XII) ? no clinical abnormalities observed. - Respiratory Status Respiratory Status: Trach, Passy Eliane Speaking Valve Subjective Dysphagia - Symptoms Reported Symptoms/Problems with: Drooling, Difficulty Swallowing Solids, Difficulty Swallowing Pills - Current Diet Solids Current Diet: Soft, Mechanical Soft Other: noodle soup, soft meat loaf - Current Diet Liquids Current Liquids: Thin - NPO NPO - Alternative Nutrition Method: Gastrostomy Tube Objective Dysphagia - Thin Liquids Administred via: Cup Laryngeal Elevation: Impaired Comments: He consumed sips of water and coffee via cup during session with consistent anterior loss and wet vocal quality following 2 sips. - Pureed Laryngeal Elevation: Impaired Comments: Wet vocal quality following 1 bite, good oral clearance Dysphagia Assessment - Swallowing Impairment Contributing Factors to Swallowing Impairment: Reduced Oral Strength/ Coordination/Sensation, Mastication Inefficiency, Reduced Laryngeal Excursion Other: Trach in place, current radiation therapy to the neck - Impact Impact on Safety & Functioning: Risk for Aspiration, Risk for Inadequate Nutrition/Hydration Comments: Educated pt in high risk for aspiration and worsening dysphagia s/p previous radiation treatment, current radiation therapy, and with presence of trach. Pt verbalized understanding; however, he requires continued education. - Recommendations Modified Barium Swallow/Cookie Swallow Recommended: Yes Swallowing Treatment: Yes - Diet Texture Recommendations Solids Other: Soft Liquids: Thin - Safety Saftey Precautions/Swallowing Recommendations (Check all that Apply): Upright Position at Least 30 Minutes After Meals, Small Sips & Bites when Eating, Other (Specify Below) Other: Cough and re-swallow if wet vocal quality, slow rate FOIS - Functional Oral Intake Scale Tube dependent with consistent oral intake of food or liquid: Level 3 Other Impressions - Comments EAT-10 -: 3 Plan - Plan Plan: Will recommend the patient for skilled outpatient dysphagia therapy to address 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 Additionally, will provide ongoing assessment of diet tolerance during and post radiation treatment. Without [facility] services, the patient is at risk for aspiration, weight loss, and malnutrition. - Recommendations MBS: Yes Treatment Warranted: Yes - Frequency Frequency: 1x/Week - Prognosis Prognosis: Good - Goals that are Established: Determination:: Goals will be added/modified as deemed necessary and appropriate. Therapy will be discontinued when results of re-evaluation indicate therapy is no longer needed or lack of progress has been documented. - Goal #1-5 Goal #1: The patient will consume least restrictive diet textures without overt s/s of aspiration with minimal verbal cues for use of compensatory strategies to decrease risk for aspiration. Goal #2: The patient will complete an oropharyngeal exercise program (effortful swallows) during and post chemoradiation treatment independently to improve and maintain strength, ROM, and coordination of swallowing mechanism (X10-20 repetitions, 3-5X daily). Goal #3: The patient will complete jaw strength, coordination, and ROM exercises during and post chemoradiation treatment independently to improve and maintain mastication and speech abilities (X10 repetitions, 3-5X daily). Goal #4: The patient will participate in MBS study to objectively assess swallow function and provide recommendations for safest, least restrictive diet and compensatory strategies to reduce risk for aspiration. Goal #5: The patient will participate in ongoing education re: short-term and long-term effects of chemoradiation treatment on swallow function and management of symptoms that contribute to dysphagia. Education - Patient has Indicated that the Following Other Educational Needs: Hard of hearing - Patient Instruction Patient Education: Treatment Plan, Goals, Safety Precautions, Diet Level, Home Exercise Program Other Education: Education provided regarding the potential impacts of radiation treatment on swallow function during and post treatment, including effects such as mucositis, radiation fibrosis, and disuse atrophy which may result in restricted range of motion and weakness of swallowing mechanism. Also discussed current trach placement placing patient at higher risk for aspiration. Encou raged use of PMSV for both speech and swallowing throughout his day to improve swallow function. Discussed impaired swallowing and increased risk for aspiration, aspiration related illnesses, weight loss, and malnutrition. Discussed importance for speech therapy to monitor and address dysphagia both during and post chemoradiation treatment to maintain optimal swallow function through continued education and prophylactic oropharyngeal and jaw exercise program. Provided the patient a handout and demonstration of exercises. The patient would benefit from continued training to monitor proper execution of exercises and encourage strict adherence to exercise program. Person Taught: Patient Teaching Method: Discussion, Demonstration, Handout Response to teaching: Verbalize understanding, Reinforcement needed
[2022-02-14 10:08] LABS: Absolute Lymphocyte Count 0.86 X10^3/uL (0.83-4.51); Absolute Neutrophil Count 4.3 X10^3/uL (2.0-7.7); Basophil# 0.02 X10^3/uL; Basophil% 0.3 % (0-1); Eosinophil# 0.04 X10^3/uL; Eosinophils% 0.7 % (0-5); Hematocrit 31.5 % (40-54); Hemoglobin 10.6 g/dL (13.0-16.5); Lymphocyte # 0.86 X10^3/ul (0.83-4.51); Lymphocyte % 14.2 % (19-41); Mean Corp Hgb Conc 33.7 g/dL (32-36); Mean Corpuscular Hgb 30.8 pg (27.0-32.0); Mean Corpuscular Volume 91.6 fL (80-94); Mean Platelet Vol. 8.1 fl (6.2-12.0); Monocyte# 0.77 X10^3/uL; Monocyte% 12.7 % (0-10); NRBC Flagged by Analyzer 0 % (0-5); Neutrophil # 4.33 X10^3/uL (2.7-7.7); Neutrophil % 71.4 % (47-70); Platelet Count 464 K/mm3 (150-450); RBC Distribution Width CV 14.9 % (11.6-14.6); RBC Distribution Width SD 49.9 fl (35.1-43.9); Red Blood Count 3.44 M/mm3 (4.6-6.2); White Blood Count 6.1 K/mm3 (4.4-11.0)
[2022-02-14 10:20] LABS: ALB/GLOB Ratio 0.7 RATIO (0.9-2.4); AST(SGOT) 12 U/L (15-37); Alanine Aminotransfer ALT/SGPT 26 U/L (16-61); Albumin, Serum 3.4 g/dL (3.2-5.0); Alkaline Phosphatase 97 U/L (45-117); Anion Gap 5 (5-15); BUN 20 mg/dL (7-18); BUN/Creat Ratio 52.9 RATIO (10-20); Chloride 93 mmol/L (98-107); Creatinine, Serum 0.38 mg/dL (0.70-1.30); EST Glomerular Filtration Rate 249 mL/min (>60); Est Glom Filt Rate - Afr Amer 302 mL/min (>60); Globulin 4.7 g/dL (2.2-4.2); Glucose 82 mg/dL (74-106); Magnesium 1.9 mg/dL (1.6-2.6); Phosphorus 3.4 mg/dL (2.5-4.9); Potassium 4.2 mmol/L (3.5-5.1); Protein, Total 8.1 g/dL (6.4-8.2); Sodium Level 129 mmol/L (136-145)
[2022-02-14 18:01] LABS: Xtra Tube EP Lab EXTRA TUBE
--- NOTE | 2023-11-04 11:18 | HP.SP.DC ---
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 He attended 42 dysphagia treatments during and following treatment for training in recommended diet textures, strategies to decrease risk for aspiration, and oropharyngeal exercise programs to maintain optimal swallow function. He has participated in 4 MBSS during this POC. Most recent MBSS 08/05/2023 recommended: Moist purees or liquidized food and Thin Liquids Comment: Oral care throughout the day, including before and after every meal. Continue use of PEG tube to supplement oral intake as needed. Compensatory Strategies: Liquid by Teaspoon Only (Cough and re-swallow after EVERY sip), Slow Rate, Multiple Swallows, Alternate bites/solids and sips/liquids, Sitting upright and Remain sitting upright for 30 minutes after PO intake Recommend Repeat Modified Barium Swallow: Yes (6-12 months to monitor risk for worsening dysphagia/aspiration risk. Will repeat sooner if concern for worsening diet tolerance or respiratory status.) More recently, he participated in myofascial release in junction with oropharyngeal exercises to promote improved soft tissue mobility and swallow strength/ROM since August of 2023. He doubled his neck rotation ROM. As the patient is demonstrating minimal progress in current dysphagia therapy, will discontinue MFR with oropharyngeal exercises. He is independent completing oropharyngeal, jaw, and neck ROM exercises at home. He is reporting decreased s/s of aspiration and has good knowledge of strategies to decrease his risk for aspiration. Will discharge the patient from dysphagia therapy at this time. Please re-consult if concern for worsening swallow function and/or increased fibrosis of the neck negatively impacting his oral intake. CRYSTAL LAPPER informed Dr. Sellers of discharge.
== END 2023-11-01 19:00 | disposition home or self-care (01) ==
LOC: SP 09:30
PROVIDERS: PCP Nurse Practitioner; Referring Provider Student in an Organized Health Care Education/Training Program; Visit Provider Student in an Organized Health Care Education/Training Program
DX: C41.1 Malignant neoplasm of mandible (principal)
CPT/HCPCS: 36415; 80053; 83735; 84100; 85025; 92526; 92610

== ENCOUNTER 2024-02-20 05:28 | Day surgery (SDC) | payer OTHER, SELFPAY ==
[2022-01-31 09:09] VITALS: BMI 22.6
[2024-02-20 05:49] VITALS: BP 134/69; PULSE 81; RESP 16; TEMP 36.8; O2SAT 100; BMI 21.4
[2024-02-20] MEDS: Lactated Ringers 1,000 ML 15 ML IV (05:56)
--- NOTE | 2024-02-20 06:40 | HP.PCM_ITS ---
History and Physical Date of Admission: 02/20/24 Chief Complaint: Recurrent head and neck cancer follow-up Details: MY PEREZ, is a 63 M who presents to the office today for follow up. 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 Underwent radiation with concurrent carboplatin for head/neck cancer. At follow up it was noted he has dysphagia. ? Modified Barium 04.13.22 moderate oropharyngeal dysphagia, mild esophageal dysphasia. ? Modified Barium 06.15.22 moderate-severe oropharyngeal phase dysphagia, puree texture. ? Modified Barium 08.05.23 severe oropharyngeal phase dysphagia, recommend puree texture. High risk for aspiration *[facility] established 08.30.23 he has had a tracheostomy for the last two years. He has been having difficulty swallowing foods with history as above. Daughter is concerned regarding frequent pneumonia during the winter months. EGD 09.03.23 Expiratory glottic narrowing was found.The nasopharynx and oropharynx are abnormal. Surgically absent larynx. Esophageal mucosal changes suggestive of eosinophilic esophagitis. Benign-appearing esophageal stenosis. Dilated. Small hiatal hernia. No gross lesions in the entire stomach. No gross lesions in the first portion of the duodenum. Biopsies were taken with a cold forceps for evaluation of eosinophilic esophagitis. OV 02.11.24 pt reports continued difficulty swallowing. ROS Const Constitutional: No fatigue, fever(s) or weight change ENT ENT: Positive for difficulty swallowing Gastro GI: Positive for difficulty swallowing; No abdominal pain, belching, bloating, change in bowel habits, change in stool character, coffee ground emesis, constipation, cramping, diarrhea, heartburn, feeling full early, excessive flatus, incontinent of stools, Vomiting blood/hematemesis, Blood in stool, loose stools, Black,tarry stools, nausea/dyspepsia, pain with swallowing, vomiting or other Musc Musculoskeletal: No joint pain Skin Skin: No yellowing of the eye or itchy eyes Psych Psychiatric: No anxiety and No depression Endo Endocrine: No fatigue or weight change Aller/Imm Allergy/Immunologic: No itchy eyes Mark/Lymp Hematologic/Lymphatic: No easy bleeding or easy bruising Exam Const General: cooperative and comfortable Nutritional Appearance: average body habitus and well nourished [facility] Head: normal to inspection Ears: hearing grossly normal bilaterally Nose: external nose normal Face and sinus: normal facial exam Mouth: oral mucosae normal Throat: posterior oropharynx normal Eyes General: appearance normal, both eyes and all related structures Neck Neck: normal visual inspection Chest Chest palpation & inspection: normal inspection of the chest and normal palpation of entire chest wall Resp Effort & Inspection: normal respiratory effort Auscultation: Bilateral: Clear to Auscultation Cardio Palpation: normal PMI Rate: regular rate Rhythm: regular rhythm GI Inspection: normal to inspection Auscultation: normal bowel sounds Percussion: normal to percussion Palpation: no hepatosplenomegaly Skin General: no rashes or lesions noted Neuro General: patient alert Extrem General: normal to inspection Psych Affect: normal affect Assessment and Plan Assessment and Plan (1) Esophageal dysphagia: Status: Chronic Plan: 62-year-old male with a diagnosis of 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 Patient is status post tonsillectomies and uveal excision yet no primary identified. Received concomitant chemoradiation January through March 2019 tolerated with expected but no excessive toxicities. He was in complete remission went on surveillance with no evidence to suggest cancer recurrence until August 2021. Indeterminate too small to further characterize lung nodules on initial staging chest CT of November 2018 remains stable for 2 years on imaging through February 2021. 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 Restaging did not suggest systemic disease. October 2021 he underwent radical surgery. Received adjuvant combined modality therapy with radiation and weekly carboplatin chemosensitization November?January. 11/07/2021: PEG tube placement, tracheostomy, composite resection of oral cavity, excision of skin and soft tissue, segmental mandibulectomy, right selective neck dissection and left neck exploration for vessels. Reconstruction was thigh free flap and had complex neck closure with split thickness skin graft. Trach was removed following surgery on 12/05/2021 with the trach re-inserted due to difficulty breathing when lying flat. Pt has followed with OP ST during and after radiation treatment. Most recent MBSS 06/15/22 recommended moist puree textures / thin liquids with strict aspiration precautions and GI consult for dilation, very narrow and decreased opening/duration of upper esophageal sphincter. When an upper endoscopy to evaluate his upper GI tract. He had a severe at the level of the cricopharyngeus muscle involving the upper esophageal sphincter into the proximal esophagus with dilation up to 42 Urdu savory dilator. He did well up until a month ago where he had a worsening swallowing. He will undergo repeat upper endoscopy with Botox injection and dilation of the esophagus. I have examined the patient and the H&P has been reviewed. There are no clinical changes since date of exam.
[2024-02-20] MEDS: Botulinum Toxin A 100 Units Vial IJ (07:09)
[2024-02-20] MEDS: 0.9% Saline Lock 10 ML Syringe IV ×2 (07:10)
[2024-02-20] MEDS: 0.9% Normal Saline (Pres. free 10 ML Vial (07:11)
[2024-02-20 07:17] VITALS: BP 101/63; BP 134/69; PULSE 60; RESP 16; TEMP 36.3; O2SAT 97
--- NOTE | 2024-02-20 07:17 | OP.CCLET_ITS ---
02/20/2024 Kya Anderson, AJAY [address] [place] [address] Re : Upper GI endoscopy procedure for Dread [place] Dear Ms. Anderson This procedure was performed on January. My impressions and recommendations are as follows: Impressions : - The nasopharynx and oropharynx are abnormal. - Benign-appearing esophageal stenosis. Dilated. Injected with botulinum toxin. - No gross lesions in the entire stomach. - No gross lesions in the duodenal bulb. - No specimens collected. Recommendations : - Discharge patient to home. - Resume previous diet. - Continue present medications. My findings are described in the full procedure note, which is enclosed. If I can be of further assistance, please feel free to contact me at . Sincerely, Elliott Akhtar, 02/20/2024 7:15:58 AM This report has been signed electronically.
--- NOTE | 2024-02-20 07:17 | OP.EGD_ITS ---
Patient Name: Dread Jama Procedure Date: 02/20/2024 6:23 AM Date of : 1960 Age: 63 Procedure: Upper GI endoscopy Indications: Oropharyngeal phase dysphagia, Pharyngeal phase dysphagia, Esophageal dysphagia Providers: Elliott Akhtar DO Referring MD: Elliott Akhtar DO Medicines: Monitored Anesthesia Care Patient Profile: This is a 63 year old male. Refer to note in patient chart for documentation of history and physical. Patient has symptoms of dysphagia with both liquids and solids. Complications: No immediate complications. Procedure: Pre-Anesthesia Assessment: - Prior to the procedure, a History and Physical was performed, and patient medications and allergies were reviewed. The patient is competent. The risks and benefits of the procedure and the sedation options and risks were discussed with the patient. All questions were answered and informed consent was obtained. Patient identification and proposed procedure were verified by the physician. Mental Status Examination: normal. Prophylactic Antibiotics: The patient does not require prophylactic antibiotics. Prior Anticoagulants: The patient has taken no anticoagulant or antiplatelet agents. After reviewing the risks and benefits, the patient was deemed in satisfactory condition to undergo the procedure. The anesthesia plan was to use monitored anesthesia care (MAC). Immediately prior to administration of medications, the patient was re-assessed for adequacy to receive sedatives. The heart rate, respiratory rate, oxygen saturations, blood pressure, adequacy of pulmonary ventilation, and response to care were monitored throughout the procedure. The physical status of the patient was re-assessed after the procedure. After obtaining informed consent, the endoscope was passed under direct vision. Throughout the procedure, the patient's blood pressure, pulse, and oxygen saturations were monitored continuously. The gastroscope was introduced through the mouth, and advanced to the second part of duodenum. The upper GI endoscopy was accomplished without difficulty. The patient tolerated the procedure well. Scope In: 6:55:07 AM Scope Out: 7:09:28 AM Total Procedure Duration Time 0 hours 14 minutes 21 seconds Findings: The nasopharynx and oropharynx are abnormal. One benign-appearing, intrinsic severe (stenosis; an endoscope cannot pass) stenosis was found 18 to 22 cm from the incisors. This stenosis measured 5 mm (inner diameter) x 4 cm (in length). The stenosis was traversed after dilation. A guidewire was placed and the scope was withdrawn. Dilation was performed with a Savary dilator with no resistance at 51 Fr. The dilation site was examined following endoscope reinsertion and showed moderate mucosal disruption. Area was successfully injected with 100 units botulinum toxin. No gross lesions were noted in the entire examined stomach. No gross lesions were noted in the duodenal bulb. Impression: - The nasopharynx and oropharynx are abnormal. - Benign-appearing esophageal stenosis. Dilated. Injected with botulinum toxin. - No gross lesions in the entire stomach. - No gross lesions in the duodenal bulb. - No specimens collected. Recommendation: - Discharge patient to home. - Resume previous diet. - Continue present medications. Procedure Code(s): --- Professional --- 60928, Esophagogastroduodenoscopy, flexible, transoral; with insertion of guide wire followed by passage of dilator(s) through esophagus over guide wire 46576, 59,51, Esophagogastroduodenoscopy, flexible, transoral; with directed submucosal injection(s), any substance CPT copyright 2021 [employer]. All rights reserved. The codes documented in this report are preliminary and upon label maker review may be revised to meet current compliance requirements. Elliott Akhtar DO 02/20/2024 7:15:58 AM This report has been signed electronically. Number of Addenda: 0 Note Initiated On: 02/20/2024 6:23 AM
[2024-02-20 07:20] VITALS: BP 134/69; BP 80/60; BP 92/61; PULSE 60; PULSE 61; RESP 17; O2SAT 97
[2024-02-20 07:30] VITALS: BP 134/69; BP 86/56; PULSE 59; RESP 17; O2SAT 97
[2024-02-20 07:45] VITALS: BP 103/63; BP 134/69; PULSE 60; RESP 16; TEMP 36.2; O2SAT 99
[2024-02-20 08:05] VITALS: BP 134/69
== END 2024-02-20 08:08 | disposition home or self-care (01) ==
LOC: EN 05:32 → AC 05:33
PROVIDERS: PCP Nurse Practitioner; Referring Provider Nurse Practitioner; Visit Provider Internal Medicine Gastroenterology
PROC: 0DJ08ZZ Inspection of Upper Intestinal Tract, Via Natural or Artificial Opening Endoscopic (ICD-10-PCS; CPT 43235; principal; 2024-02-20 06:25)
DX: R13.10 Dysphagia, unspecified (principal); Z92.3 Personal history of irradiation; Z90.02 Acquired absence of larynx; K22.2 Esophageal obstruction; Z85.89 Personal history of malignant neoplasm of other organs and systems; J39.2 Other diseases of pharynx
CPT/HCPCS: 43248; 43236; J7120; A4216; C1769; J0585; J2405; J3490

== ENCOUNTER → 2024-05-06 | Outpatient (CLI) | payer MEDICARE, SELFPAY ==
[2022-01-31 09:09] VITALS: BMI 22.6
--- NOTE | 2024-05-06 06:52 | CT_ITS ---
STUDY: CT SOFT TISSUE NECK WITH CONTRAST REASON FOR EXAM: Male, 63 years old. F/U HEAD AND NECK CANCER -- IV CONTRAST ONLY RADIATION DOSAGE (If Supplied By Facility): CTDIvol = ( 7.63 ) mGy, DLP = ( 642.99 ) mGycm TECHNIQUE: The patient was scanned in a multi-detector CT scanner. High resolution transaxial imaging was performed following intravenous administration of IV 100mL Isovue-370. Sagittal and coronal images were reconstructed. Individualized dose optimization techniques were used for this CT. COMPARISON: Comparison is made with prior study dated July 29, 2023. FINDINGS: A tracheostomy tube is in situ. Once again, the patient is status post screw and plate fixation of the mandible. Stable increased markings in the subcutaneous tissues overlying the lower face. Normal bilateral parotid glands. Normal bilateral coin machine mechanic spaces. Normal bilateral parapharyngeal spaces. Normal bilateral carotid spaces. Normal bilateral sublingual and submandibular glands and spaces. Normal visualized nasopharynx. Normal retropharyngeal space. Normal perivertebral space. Normal visualized bilateral faucial tonsils. The visualized tongue, tongue base and oropharynx are normal. The visualized cervical lymph nodes (levels I-) are within normal size limits, and maintain normal morphology. There is no demonstrated solid or cystic mass lesion. There is no abnormal contrast enhancement. Normal epiglottis, bilateral vallecula and hypopharynx. The pre-epiglottic and paraglottic adipose spaces are normal. Normal visualized bilateral piriform sinuses, aryepiglottic folds, vocal cords, and arytenoid-cricoid articulations. Normal subglottic trachea. Normal bilateral lobes of the thyroid gland. Normal visualized pulmonary apices. Mucosal retention cyst or polyps at the base of the maxillary sinuses slightly worse on the left side. Mucosal thickening of the posterior aspect of the right ethmoid sinus. There is multilevel degenerative changes of the cervical spine. CT/Soft Tissue Neck WITH Contrast IMPRESSION: Stable examination. Electronically Signed: Bib Reeves MD at 10:16 EDT ,
--- NOTE | 2024-05-06 06:52 | CT_ITS ---
STUDY: CT CHEST WITH CONTRAST REASON FOR EXAM: Male, 63 years old. F/U HEAD AND NECK CANCER -- IV CONTRAST ONLY RADIATION DOSAGE (If Supplied By Facility): CTDIvol = ( 7.63 ) mGy, DLP = ( 642.99 ) mGycm TECHNIQUE: Transaxial imaging was performed following intravenous administration of IV 100mL Isovue-370. Multiplanar coronal and sagittal images were reformatted. Individualized dose optimization techniques were used for this CT. COMPARISON: Comparison is made with prior study dated July 29, 2023. FINDINGS: CHEST A tracheostomy tube is seen. It is unchanged. Once again, there is evidence of interstitial scarring in the lung apices more prominent in the right lung apex and along the anterior aspect of both lung apices. Stable 5.4 mm noncalcified nodule in the peripheral aspect of the right upper lobe as seen on axial image #76. Mild scarring along the posterior medial aspect of the right upper lobe as well as in the superior segment of the left lower lobe. There is a new 1.9 cm x 1.7 cm irregular area of heterogeneous density with the soft tissue and cystic spaces in the anterior segment of the right lower lobe. This may represent a focal area of scarring although correlation with a PET scan is recommended. Mild surrounding bronchiectasis. There is no demonstrated pleural abnormality. Normal heart and pericardium. Normal mediastinum. Normal hilar regions. Normal unenhanced pulmonary arteries. Normal aorta arch and descending thoracic aorta. There are multi-level degenerative changes of the thoracic spine. CT/Chest WITH Contrast IMPRESSION: Stable position of the tracheostomy tube. New heterogeneous area of density in the anterior segment of the right lower lobe as described. Correlation with a PET scan is recommended. Electronically Signed: Bib Reeves MD at 15:44 EDT ,
[2024-05-06 07:17] LABS: CREATININE FINGERSTICK < 1.0 mg/dL (0.70-1.30); EGFR FINGERSTICK > 60.0000 mL/min (>60)
== END | disposition home or self-care (01) ==
PROVIDERS: PCP Nurse Practitioner Family; Referring Provider Internal Medicine Hematology & Oncology; Visit Provider Internal Medicine Hematology & Oncology
DX: C76.0 Malignant neoplasm of head, face and neck (principal)
CPT/HCPCS: 70491; 71260; Q9967

== ENCOUNTER → 2024-06-24 | Outpatient (CLI) | payer MEDICARE, SELFPAY ==
[2022-01-31 09:09] VITALS: BMI 22.6
== END | disposition home or self-care (01) ==
PROVIDERS: PCP Nurse Practitioner Family; Referring Provider Student in an Organized Health Care Education/Training Program; Visit Provider Student in an Organized Health Care Education/Training Program
DX: C76.0 Malignant neoplasm of head, face and neck (principal); L90.5 Scar conditions and fibrosis of skin
CPT/HCPCS: 74230

== ENCOUNTER 2024-08-06 10:38 | Outpatient (RCR) | payer MEDICARE, SELFPAY ==
[2022-01-31 09:09] VITALS: BMI 22.6
== END 2024-08-22 23:59 ==
LOC: NS 10:38
PROVIDERS: PCP Nurse Practitioner Family; Visit Provider Student in an Organized Health Care Education/Training Program
DX: Z71.3 Dietary counseling and surveillance (principal); Z85.89 Personal history of malignant neoplasm of other organs and systems; Z93.1 Gastrostomy status
CPT/HCPCS: 97803

== ENCOUNTER → 2024-08-25 | Outpatient (CLI) | payer MEDICARE, SELFPAY ==
[2022-01-31 09:09] VITALS: BMI 22.6
--- NOTE | 2024-08-25 07:09 | CT_ITS ---
STUDY: CT CHEST WITH CONTRAST REASON FOR EXAM: Male, 64 years old. F/U LUNG NODULES -- IV CONTRAST ONLY RADIATION DOSAGE (If Supplied By Facility): CTDIvol = ( 9.91 ) mGy, DLP = ( 234.88 ) mGycm TECHNIQUE: Transaxial imaging was performed following intravenous administration of IV 100mL Isovue-370. Multiplanar coronal and sagittal images were reformatted. Individualized dose optimization techniques were used for this CT. COMPARISON: Comparison is made with prior study May 06, 2024. FINDINGS: CHEST A tracheostomy tube is seen within the trachea. There is a new 1 cm spiculated nodule in the peripheral lateral aspect of the right upper lobe as seen on axial image #44 and coronal image #137. Stable scarring along the anterior aspect of both upper lobes more pronounced on the left side. The previously seen heterogeneous area of infiltrate in the posterior segment of the right lower lobe has cleared. There is no demonstrated pleural abnormality. Normal heart and pericardium. No coronary artery calcification is seen. Normal mediastinum. Normal hilar regions. Normal unenhanced pulmonary arteries. Normal aorta arch and descending thoracic aorta. There are multi-level degenerative changes of the thoracic spine. There is no demonstrated abnormality of the visualized upper abdomen. CT/Chest WITH Contrast IMPRESSION: New 1 cm spiculated nodule in the peripheral lateral aspect of the right upper lobe. Stable scarring at the lung apices anteriorly. The previously seen heterogeneous infiltrate in the posterior medial segment of the right lower lobe as result. Electronically Signed: Bib Reeves MD at 13:41 EST ,
[2024-08-25 07:36] LABS: CREATININE FINGERSTICK < 1.0 mg/dL (0.70-1.30); EGFR FINGERSTICK > 60.0000 mL/min (>60)
== END | disposition home or self-care (01) ==
PROVIDERS: PCP Nurse Practitioner Family; Referring Provider Internal Medicine Hematology & Oncology; Visit Provider Internal Medicine Hematology & Oncology
DX: R91.8 Other nonspecific abnormal finding of lung field (principal)
CPT/HCPCS: 71260; Q9967

== ENCOUNTER → 2024-09-15 | Outpatient (CLI) | payer MEDICARE, SELFPAY ==
[2022-01-31 09:09] VITALS: BMI 22.6
[2024-09-15] VITALS (16 sets, daily range): BP systolic 102–129; BP diastolic 51–68; PULSE 65–78; RESP 12–23; TEMP 36.9; O2SAT 96–99; BMI 19.8
[2024-09-15 09:00] LABS: Platelet Count 291 K/mm3 (150-450)
[2024-09-15 09:09] LABS: Partial Thromboplast Time 31.3 Seconds (24.1-36.2); Prothrombin Time (Protime)PT. 12.8 SECONDS (11.7-14.9)
[2024-09-15] MEDS: Midazolam 2 MG/2 ML Syringe IV (09:54)
[2024-09-15] MEDS: 0.9% Saline Lock 10 ML Syringe IV ×2 (09:57→09:59)
[2024-09-15] MEDS: fentaNYL 100 MCG/2 ML Ampul IV (09:57)
[2024-09-15] MEDS: Lidocaine 2% (20 ml mdv) 20 ML Vial INFILT (10:10)
--- NOTE | 2024-09-15 10:15 | ASPIGT_PTH ---
PATIENT: MY PEREZ LOC: [place] U#:[id number] AGE/SX: 64/M ROOM: RE09/15/[address]: Dr. Quincy Simpson MD : [id number] BED: DIS: 09/15/2024 SPEC #: [id number] RECD: 09/15/24 10:25 STATUS: ALEX REQ #: [id number] SHANTELL: 09/15/24 10:[address]: Quincy Simpson DEPT: SURGICAL PATHOLOGY RECD BY: Merline Nagel ENTERED: 09/15/24 10:40 SP TYPE: ASP RAD OTHR DR: Sadie Santiago NP-C SEPIDEH Nguyen Tissues: Lung, NOS Procedures: FNA Specimen Adequacy Special Stain Group II Surgery Specimen Level IV Imprint (control) HEADER OPERATION: CT guided right lung biopsy PRE-OP DIAGNOSIS: Right upper love lung nodule TISSUE SUBMITTED: Right upper lung nodule, 20 g x 6 MICROSCOPIC DIAGNOSIS Right upper lung nodule, core biopsy: Fragments of benign lung parenchymal tissue, negative for malignancy. See comment. SJ 09/17/24 COMMENT The specimen is evaluated at the time of CT by Dr. Cope. Immediate Evaluation = Negative for malignant cells. Report called to Ms. Loretta Jade at 1025am on 09/15/24 Interstitial fibrosis and chronic inflammation are noted. Correlation with clinical, radiologic findings and appropriate follow up are necessary. MICROSCOPIC DESCRIPTION Slides are reviewed. GROSS DESCRIPTION Received is one container labeled with the patient name and designated right upper lung nodule. The specimen consists of multiple irregular fragments of light mcmahon soft tissue that in aggregate measure 0.5 x .1 x <0.1 cm. Two touch imprints are also prepared at time of core biopsy. The specimen is totally submitted in one cassette. /ZANDER:twin 09/15/24 TC:5 [facility] [id number], [id number]:
--- NOTE | 2024-09-15 10:25 | RAD_ITS ---
STUDY: X-RAY CHEST REASON FOR EXAM: Male, 64 years old. post lung biopsy -- Immediately post lung biopsy TECHNIQUE: Frontal inspiratory and expiratory views COMPARISON: None. FINDINGS: Tracheostomy tube with the tip above the devika. The lungs are clear and expanded. There is no demonstrated pleural abnormality. In particular, no pneumothorax after lung biopsy. Normal size heart. Normal mediastinum and michelle. Normal visualized pulmonary arteries. Normal visualized aortic arch and descending thoracic aorta. There is a levoscoliosis of the thoracic spine. Normal visualized ribs, clavicles, and shoulders. There is no demonstrated abnormality of the visualized soft tissue structures of the upper abdomen. RAD/Chest Insp/Exp 2 View IMPRESSION: No pneumothorax after lung biopsy. Electronically Signed: Narendra Kincaid MD at 11:08 EST ,
--- NOTE | 2024-09-15 11:22 | OP.PCM_ITS ---
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 Simpson INDICATION: Male, 64 years old. Right upper lobe lung nodule. PROVIDER: DORIS Trujillo CONSENT: Written informed consent was obtained having explained the risks, benefits and alternatives in detail with the patient who accepted the risks and agreed to proceed. Laboratory review and clinical assessment was performed. PRE-PROCEDURE SEDATION ASSESSMENT: Current history and physical dictated by referring physician and reviewed. No clinical changes since date of exam. Patient has a Mallampati Score of Class 2 and ASA Class of 3. Patient does have pre-existing tracheostomy, for which we have trach mask present in the procedure room. PROCEDURAL SEDATION PROTOCOL: The Drugs used were: 1 mg Versed, IV, and 25 mcg Fentanyl, IV. The sedation time was: 24 minutes, starting at 9:54 AM and terminated at 10:18 AM. The procedural sedation protocol was independently monitored by the department nurse. RADIATION DOSAGE (Supplied By Facility): CTDIvol = 21.78 mGy, DLP = 249.37 mGycm Individualized dose optimization techniques were used for this CT. TECHNIQUE: The patient was placed in a supine position. A noncontrast CT was performed to localize the lesion in the right upper lobe. The skin surface was prepped with chlorhexidine and draped in a sterile fashion. 2% lidocaine was used for local anesthesia. Using CT guidance, a 20-gauge coaxial biopsy device was advanced to the periphery of the lesion. A total of 6 core specimens were obtained. Specimens were microscopically reviewed by pathology in the CT suite and placed in formalin solution. BioSentry tract sealant system was deployed at the biopsy site, and the biopsy needle was removed. A sterile occlusive dressing was applied to the biopsy site. The patient tolerated the procedure well. An immediate chest xray was ordered, per protocol. A negative biopsy does not exclude malignancy. Further imaging or clinical followup based on patient condition and degree of clinical suspicion for malignancy. Suggest rebiopsy, if biopsy results do not match with clinical scenario. IMPRESSION: CT directed core needle biopsy of right upper lobe lung nodule using CT image guidance with image documentation as described. Pathology results are pending. Procedural Sedation protocol utilized with independent monitoring by the department nurse. Surgical Findings: sample obtained Complications Complications: No
--- NOTE | 2024-09-15 12:23 | RAD_ITS ---
STUDY: X-RAY CHEST REASON FOR EXAM: Male, 64 years old. post lung biopsy -- 2 hours post lung biopsy TECHNIQUE: Single AP portable view of the chest. COMPARISON: Earlier today FINDINGS: Tracheostomy tube which is unchanged. The lungs are clear and expanded. There is no demonstrated pleural abnormality. In particular, no pneumothorax after lung biopsy. Normal size heart. Normal mediastinum and michelle. Normal visualized pulmonary arteries. Normal visualized aortic arch and descending thoracic aorta. Normal visualized thoracic spine. Normal visualized ribs, clavicles, and shoulders. There is no demonstrated abnormality of the visualized soft tissue structures of the upper abdomen. RAD/Chest Insp/Exp 2 View IMPRESSION: No pneumothorax. Electronically Signed: Narendra Kincaid MD at 12:46 EST ,
== END | disposition home or self-care (01) ==
PROVIDERS: Nurse Practitioner Acute Care; PCP Nurse Practitioner Family; Referring Provider Internal Medicine Hematology & Oncology; Visit Provider Internal Medicine Hematology & Oncology
DX: D14.31 Benign neoplasm of right bronchus and lung (principal); C77.9 Secondary and unspecified malignant neoplasm of lymph node, unspecified; C76.0 Malignant neoplasm of head, face and neck; Z87.891 Personal history of nicotine dependence
CPT/HCPCS: 32408; 36415; 71046; 77012; 85049; 85610; 85730; 88172; 88305; 88313; 99156; A4216; C2613

== ENCOUNTER 2024-10-21 05:27 | Day surgery (SDC) | payer MEDICARE, SELFPAY ==
[2022-01-31 09:09] VITALS: BMI 22.6
[2024-10-21] VITALS (9 sets, daily range): BP systolic 74–145; BP diastolic 55–70; PULSE 55–73; RESP 16–18; TEMP 36.2–36.6; O2SAT 98–100; BMI 19.8
--- NOTE | 2024-10-21 06:19 | PCM.PRE.AN2 ---
ASA Classification* ASA Classification ASA Classification: 4 Assessment & Plan Anesthesia* Anesthesia Assessment Anesthesia Assessment: Discussed sedation and/or anesthesia options, risks, benefits, and alternatives with patient/parents/legal guardian/POA. Questions invited. The patient/parents/legal guardian/POA seems to understand and agrees to proceed with anesthesia plan. Reviewed the physical assessment, medical history, allergy history and patient home medications list prior to surgery/procedure/anesthetic and documented any changes. Performed airway and anesthesia risk assessments. Anesthesia Type Anesthesia Type: MAC History Source History Obtained from:: Patient and Chart Anesthesia Focused Assessment* Temperature: 97.6 F Pulse Rate: 73 Blood Pressure: 145/70 Respiratory Rate: 18 Pulse Ox: 98 Airway Assessment Mouth opens: >3 cm Mallampati Score: II Teeth Condition: Dentures Neck Range of motion (ROM): Limited ROM Comment: Neck radiation Focused Labs Anesthesia Preop lab: CBC WBC 7.5 K/mm3 (4.4-11.0) 05/13/24 10:47 RBC 4.83 M/mm3 (4.6-6.2) 05/13/24 10:47 Hgb 14.6 g/dL (13.0-16.5) 05/13/24 10:47 Hct 44.3 % (40-54) 05/13/24 10:47 Plt Count 291 K/mm3 (150-450) 09/15/24 08:52 CHEMISTRY Potassium 3.9 mmol/L (3.5-5.1) 05/13/24 10:47 Sodium 136 mmol/L (136-145) 05/13/24 10:47 Magnesium 1.9 mg/dL (1.6-2.6) 05/23/22 11:05 Phosphorus 3.9 mg/dL (2.5-4.9) 05/23/22 11:05 BUN 10 mg/dL (7-18) 05/13/24 10:47 Creatinine 0.46 mg/dL (0.70-1.30) L 05/13/24 10:47 Glucose 110 mg/dL (74-106) H 05/13/24 10:47 TSH 2.570 uIU/mL (0.358-3.740) 05/13/24 10:47 COAG PT 12.8 SECONDS (11.7-14.9) 09/15/24 08:52 Pre-Assessment Diagnosis/Proposed Procedure Planned Operative Procedure(s): EGD Anesthesia History 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 When Was Last Pacemaker Check QUESTION #4 FULL TEXT: You/Your Family Experience fever (hyperthermia) with Anesthesia Last Oral Intake Last Oral intake: Last Oral Intake NPO since 04:00 10/21/24 05:51 Meds taken in AM with sips of Yes 10/21/24 05:51 water? Meds patient instructed to levothyroxine 10/21/24 05:51 take am of surgery PONV PONV - core assembly supervisor: PONV - core assembly supervisor Female No 10/20/24 11:36 HX of Motion Sickness No 10/20/24 11:36 HX of N/V After Surgery No 10/20/24 11:36 Non-Smoker Yes 10/20/24 11:36 Duration of Surgery greater No 10/20/24 11:36 than 60 minutes Number of Risk Factors 1 10/20/24 11:36 PONV Score Low Risk 10/20/24 11:36 Height & Weight Height & Weight: Anesthesia: Height & Weight Height 5 ft 5 in 10/21/24 05:51 Weight: 54 kg 10/21/24 05:51 Body Mass Index (BMI) 19.8 10/21/24 05:51 Respiratory Assessment Respiratory Assessment - core assembly supervisor: Respiratory Tract Infection Hx - core assembly supervisor Hx Respiratory Tract Infection No 10/20/24 11:36 STOP Sleep Apnea STOP Sleep Apnea - core assembly supervisor: STOP Sleep Apnea - core assembly supervisor Hx Hypertension Yes: CONTROLLED WITH MED 10/20/24 11:36 Hx Sleep Apnea No 10/20/24 11:36 CPAP BIPAP Do you snore loudly (louder No 10/20/24 11:36 than talking or can be heard Do you often feel tired/ No 10/20/24 11:36 fatigued/ sleepy during daytime? Has anyone observed you stop No 10/20/24 11:36 breathing during sleep? STOP Results Negative 10/20/24 11:36 QUESTION #5 FULL TEXT : Do you snore loudly (louder than talking or can be heard through closed doors)? 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 Specify any problems Hx of Preganancy in last 3 N/A 10/20/24 11:36 Months Nurse Filling Out Transfusion DSCHRIBER 10/20/24 11:36 & Questions: Date: 10/20/24 10/20/24 11:36 Time: 11:37 10/20/24 11:36 Patient unable to answer at this time (ie. confused, unrespo /Reproduction History /Reproductive History - core assembly supervisor: /Reproductive Hx- core assembly supervisor Hx Now No 10/20/24 11:36 Gestational Age (in weeks): EDC: Hx Hx Para Hx Section SAB No 10/20/24 11:36 PFSH Medical History Wears hearing aid Wears glasses MRSA infection Cancer Alcohol use Open neck wound Thyroid disease Dietary restriction Former smoker Soft tissue radionecrosis Encounter for chemotherapy management Thrush, oral Sleep disturbance Cellulitis 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 peg tube removed Anemia Cancer related pain 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 cell carcinoma lt neck Hypertension Mass of left side of neck Difficulty swallowing Home Medications ?Medication ?Instructions ?Recorded ?Last Taken ?Type albuterol sulfate 1.25 mg/3 mL 1.25 mg (3 mL) inhalation Q4H PRN 12/10/21 Unknown Rx solution for nebulization bronchospasm #90 mL amlodipine 5 mg tablet 5 mg PO DAILY bp 01/23/22 09/03/23 History fluticasone propionate 50 1 spray intranasal DAILY PRN 01/23/22 Unknown History mcg/actuation nasal health maintenance spray,suspension sodium chloride 1,000 mg soluble 3 g PO BID #60 tabs 01/25/22 Unknown Rx tablet nystatin 100,000 unit/mL oral 1 ml PO Q6H PRN mouth irritation 02/14/22 Unknown History suspension oxycodone 5 mg tablet 5 mg PO BID PRN pain 05/23/22 Unknown History Levothyroxine 100 mcg PO DAILY thyroid 01/31/23 10/21/24 03:00 History silver sulfadiazine 1 % topical 1 applic topical BID PRN skin 09/02/23 Unknown History cream peeling folic acid 400 mcg tablet 0.4 mg PO DAILY 09/15/24 Unknown History pentoxifylline 400 mg 400 mg PO BID radiation fibrosis 10/20/24 Unknown History tablet,extended release Allergy/AdvReac Type Severity Reaction Status Date / Time No Known Allergies Allergy Verified 10/21/24 05:50 Family History Mother CVA (cerebral vascular accident) Surgical History (Updated 10/20/24 @ 11:41 by Tali Lui) History of esophagogastroduodenoscopy (EGD) History of mandibular surgery Hx of tonsillectomy History of removal of Port-a-Cath s/p port placement (~01/26/19) S/P percutaneous endoscopic gastrostomy (PEG) tube placement (~01/26/19) history of biopsy neck Social History Smoking Status: Former smoker quit date: 09/16/21 Tobacco: How many years used: 30 how long ago did patient quit smokin-4 months ago second hand exposure: Yes alcohol intake: former details: August 2021 substance use type: does not use diet: other well-balanced diet: other details: on a soft food diet, hasn't used feeding tube since early October 2022 seatbelt use: sometimes do you feel safe at home: Yes Review of Systems (Anesthesia) ROS Narrative System reviewed and no additional complaints, except as documented. Physical Exam Const alert Orientation / Consciousness: awake HEENT HEENT Narrative: tracheostomy dependent. On room air. Mouth: dry mucous membranes Teeth and Gingiva: dentures Resp Auscultation: crackles
--- NOTE | 2024-10-21 07:08 | PCM.HP.STD ---
HPI - General General Date of Admission: 10/21/24 Date of Service: 10/21/24 Chief Complaint: dysphagia HPI Narrative MY PEREZ, is a 64 M who presents for esophageal dilation [facility] 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 Underwent radiation with concurrent carboplatin for head/neck cancer. At follow up it was noted he has dysphagia. ? Modified Barium 04.13.22 moderate oropharyngeal dysphagia, mild esophageal dysphasia. ? Modified Barium 06.15.22 moderate-severe oropharyngeal phase dysphagia, puree texture. ? Modified Barium 08.05.23 severe oropharyngeal phase dysphagia, recommend puree texture. High risk for aspiration *I established 08.30.23 he has had a tracheostomy for the last two years. He has been having difficulty swallowing foods with history as above. Daughter is concerned regarding frequent pneumonia during the winter months. EGD 09.03.23 Expiratory glottic narrowing was found.The nasopharynx and oropharynx are abnormal. Surgically absent larynx. Esophageal mucosal changes suggestive of eosinophilic esophagitis. Benign-appearing esophageal stenosis. Dilated. Small hiatal hernia. No gross lesions in the entire stomach. No gross lesions in the first portion of the duodenum. Biopsies were taken with a cold forceps for evaluation of eosinophilic esophagitis. OV 5 pt reports continued difficulty swallowing. EGD 02.20.24 The nasopharynx and oropharynx are abnormal. Benign-appearing esophageal stenosis. Dilated. Injected with botulinum toxin. No gross lesions in the entire stomach. No gross lesions in the duodenal bulb. No specimens collected. Modified Barium Swallow .11.16 Severe oropharyngeal dysphagia OV 24 pt reports continued difficulty swallowing, denies other GI symptoms of concern at this time. 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 Restaging did not suggest systemic disease. October 2021 he underwent radical surgery. Received adjuvant combined modality therapy with radiation and weekly carboplatin chemosensitization November?January. 11/07/2021: PEG tube placement, tracheostomy, composite resection of oral cavity, excision of skin and soft tissue, segmental mandibulectomy, right selective neck dissection and left neck exploration for vessels. Reconstruction was thigh free flap and had complex neck closure with split thickness skin graft. Trach was removed following surgery on 12/05/2021 with the trach re-inserted due to difficulty breathing when lying flat. Pt has followed with OP [facility] during and after radiation treatment. Most recent MBSS 06/15/22 recommended moist puree textures / thin liquids with strict aspiration precautions and GI consult for dilation, very narrow and decreased opening/duration of upper esophageal sphincter. We will repeat his upper endoscopy to evaluate his upper GI tract. He had a severe at the level of the cricopharyngeus muscle involving the upper esophageal sphincter into the proximal esophagus with dilation up to 42 Chinese savory dilator. He did well up until a month ago where he had a worsening swallowing. He will undergo repeat upper endoscopy with Botox injection and dilation of the esophagus. 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 peg tube removed Anemia Cancer related pain 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 cell carcinoma lt neck Hypertension Mass of left side of neck Difficulty swallowing Home Medications ?Medication ?Instructions ?Recorded ?Last Taken ?Type albuterol sulfate 1.25 mg/3 mL 1.25 mg (3 mL) inhalation Q4H PRN 12/10/21 Unknown Rx solution for nebulization bronchospasm #90 mL amlodipine 5 mg tablet 5 mg PO DAILY bp 01/23/22 09/03/23 History fluticasone propionate 50 1 spray intranasal DAILY PRN 01/23/22 Unknown History mcg/actuation nasal health maintenance spray,suspension sodium chloride 1,000 mg soluble 3 g PO BID #60 tabs 01/25/22 Unknown Rx tablet nystatin 100,000 unit/mL oral 1 ml PO Q6H PRN mouth irritation 02/14/22 Unknown History suspension oxycodone 5 mg tablet 5 mg PO BID PRN pain 05/23/22 Unknown History Levothyroxine 100 mcg PO DAILY thyroid 01/31/23 10/21/24 03:00 History silver sulfadiazine 1 % topical 1 applic topical BID PRN skin 09/02/23 Unknown History cream peeling folic acid 400 mcg tablet 0.4 mg PO DAILY 09/15/24 Unknown History pentoxifylline 400 mg 400 mg PO BID radiation fibrosis 10/20/24 Unknown History tablet,extended release Allergy/AdvReac Type Severity Reaction Status Date / Time No Known Allergies Allergy Verified 10/21/24 05:50 Family History Mother CVA (cerebral vascular accident) Surgical History History of esophagogastroduodenoscopy (EGD) History of mandibular surgery Hx of tonsillectomy History of removal of Port-a-Cath s/p port placement (~01/26/19) S/P percutaneous endoscopic gastrostomy (PEG) tube placement (~01/26/19) history of biopsy neck Social History Smoking Status: Former smoker quit date: 09/16/21 Tobacco: How many years used: 30 how long ago did patient quit smokin-4 months ago second hand exposure: Yes alcohol intake: former details: August 2021 substance use type: does not use diet: other well-balanced diet: other details: on a soft food diet, hasn't used feeding tube since early October 2022 seatbelt use: sometimes do you feel safe at home: Yes ROS Constitutional Constitutional: Denies fatigue, fever(s), poor appetite, weight gain or weight loss Gastrointestinal Gastrointestinal: Denies belching, bloating, change in bowel habits, change in stool character, chewing difficulty, coffee ground emesis, constipation, cramping, diarrhea, dyspepsia, dysphagia, early satiety, excessive flatus, fecal incontinence, heartburn, hematemesis, hematochezia, hemorrhoids, loose stools, melena, nausea, odynophagia, rectal bleeding, tenesmus, vomiting or weight changes Vital Signs Vital Signs Vital Signs: 10/21/24 05:51 10/21/24 05:51 10/21/24 06:22 Temperature 97.6 F L 97.6 F L Temperature Source Temporal Pulse Rate 73 73 Respiratory Rate 18 18 Respiratory Pattern Normal Blood Pressure 145/70 H 145/70 H Blood Pressure Mean 95 Blood Pressure Source Monitor Blood Pressure Position Sitting Blood Pressure Location Left Arm Pulse Ox 98 98 Oxygen Delivery Method Room Air Weight Weight: 119 lb 0.794 oz Body Mass Index (BMI) 19.8 Physical Exam Const alert Orientation / Consciousness: awake HEENT HEENT Narrative: tracheostomy dependent. On room air. 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 Patient is status post tonsillectomies and uveal excision yet no primary identified. Received concomitant chemoradiation January through March 2019 tolerated with expected but no excessive toxicities. He was in complete remission went on surveillance with no evidence to suggest cancer recurrence until August 2021. Indeterminate too small to further characterize lung nodules on initial staging chest CT of November 2018 remains stable for 2 years on imaging through February 2021. 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 Restaging did not suggest systemic disease. October 2021 he underwent radical surgery. Received adjuvant combined modality therapy with radiation and weekly carboplatin chemosensitization November?January. 11/07/2021: PEG tube placement, tracheostomy, composite resection of oral cavity, excision of skin and soft tissue, segmental mandibulectomy, right selective neck dissection and left neck exploration for vessels. Reconstruction was thigh free flap and had complex neck closure with split thickness skin graft. Trach was removed following surgery on 12/05/2021 with the trach re-inserted due to difficulty breathing when lying flat. Pt has followed with OP ST during and after radiation treatment. Most recent MBSS 06/15/22 recommended moist puree textures / thin liquids with strict aspiration precautions and GI consult for dilation, very narrow and decreased opening/duration of upper esophageal sphincter. We will repeat his upper endoscopy to evaluate his upper GI tract. He had a severe at the level of the cricopharyngeus muscle involving the upper esophageal sphincter into the proximal esophagus with dilation up to 42 Chinese savory dilator. He did well up until a month ago where he had a worsening swallowing. He will undergo repeat upper endoscopy with Botox injection and dilation of the esophagus.
--- NOTE | 2024-10-21 07:31 | OP.CCLET_ITS ---
10/21/2024 Yari Santillan Re : Upper GI endoscopy procedure for Dread Jama Dear Jack This procedure was performed on Monday, October 21, 2024. My impressions and recommendations are as follows: Impressions : - Benign-appearing esophageal stenosis. Dilated. - Small hiatal hernia. - No gross lesions in the duodenal bulb. - No specimens collected. Recommendations : - Discharge patient to home. - Resume previous diet. - Continue present medications. My findings are described in the full procedure note, which is enclosed. If I can be of further assistance, please feel free to contact me at . Sincerely, Elliott Akhtar, 10/21/2024 7:30:22 AM This report has been signed electronically.
--- NOTE | 2024-10-21 07:31 | OP.EGD_ITS ---
Patient Name: Dread Jama Procedure Date: 10/21/2024 6:29 AM Date of : 1960 Age: 64 Procedure: Upper GI endoscopy Indications: Dysphagia Providers: Elliott Akhtar DO Referring MD: Yari Santillan Medicines: Monitored Anesthesia Care Patient Profile: This is a 64 year old male. Refer to note in patient chart for documentation of history and physical. Patient has symptoms of chronic dysphagia and dysphagia with both liquids and solids. Complications: No immediate complications. Procedure: Pre-Anesthesia Assessment: - Prior to the procedure, a History and Physical was performed, and patient medications and allergies were reviewed. The patient is competent. The risks and benefits of the procedure and the sedation options and risks were discussed with the patient. All questions were answered and informed consent was obtained. Patient identification and proposed procedure were verified by the physician in the pre-procedure area. Mental Status Examination: alert and oriented. Airway Examination: normal oropharyngeal airway and neck mobility. Respiratory Examination: clear to auscultation. CV Examination: normal. Prophylactic Antibiotics: The patient does not require prophylactic antibiotics. Prior Anticoagulants: The patient has taken no anticoagulant or antiplatelet agents. ASA Grade Assessment: II - A patient with mild systemic disease. After reviewing the risks and benefits, the patient was deemed in satisfactory condition to undergo the procedure. The anesthesia plan was to use monitored anesthesia care (MAC). Immediately prior to administration of medications, the patient was re-assessed for adequacy to receive sedatives. The heart rate, respiratory rate, oxygen saturations, blood pressure, adequacy of pulmonary ventilation, and response to care were monitored throughout the procedure. The physical status of the patient was re-assessed after the procedure. After obtaining informed consent, the endoscope was passed under direct vision. Throughout the procedure, the patient's blood pressure, pulse, and oxygen saturations were monitored continuously. The gastroscope was introduced through the mouth, and advanced to the duodenal bulb. The upper GI endoscopy was accomplished without difficulty. The patient tolerated the procedure well. Scope In: 7:15:44 AM Scope Out: 7:22:06 AM Total Procedure Duration Time 0 hours 6 minutes 22 seconds Findings: One benign-appearing, intrinsic severe stenosis was found 19 to 24 cm from the incisors. This stenosis measured 7 mm (inner diameter) x 5 cm (in length). The stenosis was traversed. A guidewire was placed and the scope was withdrawn. Dilation was performed with a Savary dilator with no resistance at 45 Fr. The dilation site was examined and showed moderate mucosal disruption. Estimated blood loss was minimal. A small hiatal hernia was present. No gross lesions were noted in the duodenal bulb. Impression: - Benign-appearing esophageal stenosis. Dilated. - Small hiatal hernia. - No gross lesions in the duodenal bulb. - No specimens collected. Recommendation: - Discharge patient to home. - Resume previous diet. - Continue present medications. Procedure Code(s): --- Professional --- 33395, Esophagogastroduodenoscopy, flexible, transoral; with insertion of guide wire followed by passage of dilator(s) through esophagus over guide wire CPT copyright 202 [employer]. All rights reserved. The codes documented in this report are preliminary and upon credit investigator review may be revised to meet current compliance requirements. Elliott Akhtar DO 10/21/2024 7:30:22 AM This report has been signed electronically. Number of Addenda: 0 Note Initiated On: 10/21/2024 6:29 AM
--- NOTE | 2024-10-21 07:31 | PCM.POST.ANE ---
Anesthesia: Postop Eval I Current Vital Signs Temperature: 97.8 F Pulse Rate: 63 Blood Pressure: 74/56 Respiratory Rate: 16 Pulse Ox: 100 Oxygen Delivery Method: Room Air Assessment Airway patent: Yes Spontaneous unlabored respirations: Yes Mental status: Asleep nausea: No Vomiting: No Anesthesia Complication: No Fluid Hydration Crystalloid volume administer (ml): 20 Total IV fluid infused: 20 Progress Note Anesthesia document: Postop Eval 1 completed: Yes
--- NOTE | 2024-10-21 08:33 | PCM.POSTANE2 ---
Anesthesia Postop Eval I Sum Postop Eval Completion status Anesthesia document: Postop Eval 1 completed: Yes Anesthesia Postop Eval I Summary Anesthesia Postop Eval I Summary: Anesthesia Postop Eval I: Assessment Summary Airway patent Yes 10/21/24 07:32 [email or web address] Spontaneous unlabored Yes 10/21/24 07:32 [email or web address] respirations Mental status Asleep 10/21/24 07:32 [email or web address] nausea No 10/21/24 07:32 [email or web address] Vomiting No 10/21/24 07:32 [email or web address] Anesthesia Postop Eval I: Fluid Summary Crystalloid volume administer 20 10/21/24 07:32 [email or web address] (ml) Colloids volume administered ( ml) Blood Product volume administered (ml) Total IV fluid infused 20 10/21/24 07:32 [email or web address] Anesthesia Postop Eval I: Summary Notes Anesthesia Complication No 10/21/24 07:32 [email or web address] Anesthesia Complication Comment: Post-operative progress note Anesthesia: Postop Eval II Evaluation Mental status: Awake and Calm Pain Level: 1 nausea: No Vomiting: No Complications Anesthesia Complication: No
== END 2024-10-21 08:13 | disposition home or self-care (01) ==
LOC: EN 05:32 → AC 05:34
PROVIDERS: PCP Nurse Practitioner Family; Referring Provider Nurse Practitioner Family; Visit Provider Internal Medicine Gastroenterology
PROC: 0DJ08ZZ Inspection of Upper Intestinal Tract, Via Natural or Artificial Opening Endoscopic (ICD-10-PCS; CPT 43235; principal; 2024-10-21 06:25)
DX: R13.10 Dysphagia, unspecified (principal); Z93.0 Tracheostomy status; K44.9 Diaphragmatic hernia without obstruction or gangrene; I10 Essential (primary) hypertension; Z87.891 Personal history of nicotine dependence; Z92.3 Personal history of irradiation; K22.2 Esophageal obstruction; Z85.828 Personal history of other malignant neoplasm of skin; Z79.899 Other long term (current) drug therapy; Z85.89 Personal history of malignant neoplasm of other organs and systems
CPT/HCPCS: 43248; A4216; C1769; J2405

== ENCOUNTER → 2024-12-17 | Outpatient (CLI) | payer MEDICARE, SELFPAY ==
[2022-01-31 09:09] VITALS: BMI 22.6
--- NOTE | 2024-12-17 15:26 | ST.MBS ---
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 Determine candidacy for participation in MDTP. Medical History: Oncology PMH: The pt is a 64-year-old male diagnosed with clinical stage NOREEN (cTx cN2b M0) p16 negative SCC of unknown primary with left neck adenopathy in level 2-[address] neck and chest (12/17/2018), ultrasound-guided FNA of the left neck mass (12/22/2018), PET scan (01/05/2019), triple endoscopy with targeted left tonsillectomy (01/30/2019). From 02/10/2019 ? 03/25/2019 he received definitive chemoradiation therapy. 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 11/07/2021: PEG tube placement, tracheostomy, composite resection of oral cavity, excision of skin and soft tissue, segmental mandibulectomy, right selective neck dissection and left neck exploration for vessels. Reconstruction was thigh free flap and had complex neck closure with split thickness skin graft. Trach was removed following surgery on 12/05/2021 with the trach re-inserted due to difficulty breathing when lying flat. Dysphagia History: Pt has followed with OP ST during and intermittently after radiation treatment to manage severe oropharyngeal dysphagia. PEG tube was removed summer. He sustains himself fully on oral diet of liquidized purees / thin liquids. Pt has participated in 7 MBSS (06/26/2019, 03/30/2020, 01/08/2022, 04/13/2022, 06/15/2022, 08/05/2023, 06/24/2024). Most recent MBSS 06/24/2024 revealed severe oropharyngeal dysphagia and recommended liquidized purees / thin liquids w/ use of recommended moist puree textures / thin liquids with frequent oral care and the following strategies: Cough and re-swallow after each sip, Small Bites, Multiple Swallows, Alternate bites/solids and sips/liquids, Sitting upright and Remain sitting upright for 30 minutes after PO intake. Hx of esophageal dysphagia managed by delivery and installation subcontractor, Dr. Akhtar, s/p EGD w/ botox injection and esophageal dilation of esophageal stenosis 02/03/2024. He participated in OP ST for myofascial release in junction with oropharyngeal strengthening and neck ROM exercises from 08/2023-10/2023 with improvements in swallowing, including advancing diet from purees to foods with soft, solid lumps (soups with small lumps), and improved neck ROM (L head rotation improved from 16 degrees to 37 degrees, R head rotation improved from 19 degrees to 35 degrees). He returned to OP ST 03/17/2024 for continued dysphagia therapy for myofascial release in junction w/ neck ROM exercises due to pt reporting sensation of decreased neck ROM and increased stiffness of neck. He has participated in 23 dysphagia treatment sessions during this POC. He returned for dysphagia treatment 12/18/2024 to continue oropharyngeal strengthening, neck ROM, and jaw ROM exercise in junction w/ myofascial release and to discuss candidacy for participation in the [facility] ([facility]), an evidence, based, intensive, systematic exercise approach to dysphagia treatment. The patient was interested in the program, so NURSE COORDINATOR recommended this MBSS as re-evaluation to determine candidacy for participation in MBSS. Current Diet Ordered: Liquidized purees (some small lumps per pt) / Thin Dentition: Edentulous Mental Status: WNL Respiratory Status: Oxygenating on Room Air (Trach) Penetration-Aspiration Scale Penetration-Aspiration Scale: OBJECTIVE ASSESSMENT OF SWALLOW FUNCTION (QUANTITATIVE ? PER TRIAL): PENETRATION / ASPIRATION SCALE (SENIOR): 1 = does not enter airway 2 = enters airway/above vocal folds/ejected 3 = enters airway/above vocal folds/not ejected 4 = enters airway/contacts vocal folds/ejected 5 = enters airway/contacts vocal folds/not ejected 6 = enters airway/below vocal folds/ejected 7 = enters airway/below vocal folds/not ejected despite effort 8 = enters airway/below vocal folds/no effort VIDEOFLOROSCOPIC SCALE SCORE (SENIOR): Grade I = aspiration of material that has penetrated into the laryngeal vestibule, intact cough reflex Grade II = aspiration < 10 % of the bolus, intact cough reflex Grade III = aspiration of < 10 % of the bolus, reduced cough reflex or aspiration of > 10 % of the bolus, intact cough reflex Grade IV = aspiration of > 10 % of the bolus, reduced cough reflex Penetration-Aspiration Scale Score Thin Liquid via teaspoon: Result: 3= enters airways/above vocal folds/not ejected Thin Liquid via teaspoon Trial 2: Result: 3= enters airways/above vocal folds/not ejected Thin Liquid 10mL: Result: 3= enters airways/above vocal folds/not ejected Thin Liquid 10mL Trial 2: Result: 8= enters airway/below vocal folds/no effort Paradis Thick Liquid via teaspoon: Result: 3= enters airways/above vocal folds/not ejected Paradis Thick Liquid via teaspoon Trial 2: Result: 3= enters airways/above vocal folds/not ejected Mildly Thick Liquid 10mL: Result: 3= enters airways/above vocal folds/not ejected Mildly Thick Liquid 10mL Trial 2: Result: 3= enters airways/above vocal folds/not ejected Pudding via teaspoon: Result: 3= enters airways/above vocal folds/not ejected Pudding via teaspoon Trial 2: Result: 3= enters airways/above vocal folds/not ejected Comment: Unable to provide pudding via 10mL (protocol for MDTP evaluation) due to limited pharyngeal clearance of second bite of pudding, which pt somewhat cleared w/ thin water wash after the study Oral Phase Labial Seal: Escape beyond mid-chin Tongue Control During Bolus Hold: Posterior escape of greater than half of bolus Bolus Transport/Lingual Motion: Delayed initiation of tongue motion Oral Residue: Residue collection on oral structures Pharyngeal Phase Initiation of Pharyngeal Swallow: Bolus head in pyriforms Soft Palate Elevation: Escape to nasal cavity (pudding) Laryngeal Elevation: Partial superior movement thyroid cart/partial apprx aryt-epig petiole Anterior Hyoid Excursion: No anterior movement (very minimal) Epiglottic Movement: No inversion Laryngeal Vestibule Closure at Height of Swallow: Incomplete; narrow column of air/contrast in laryngeal vestibule Pharyngeal Stripping Wave: Present - diminished (minimal) Pharyngoesophageal Segment Opening: Minimal distension and minimal duration; marked obstruction of flow Tongue Base Retraction: Wide column of contrast between tongue base & post. pharyngeal wall Pharyngeal Residue: Majority of contrast within or on pharyngeal structures Esophageal Phase Esophageal Clearance: Esophageal retention w/ retrograde flow through pharyngoesophageal seg (trace retention in UES, complete clearance during esophageal screens (honey and sequential thin 2)) Diagnosis/Impression Diagnosis: Severe oropharyngeal dysphagia R13.12; Esophageal dysphagia R13.12 Impression: The oral phase is primarily marked by... -Delayed initiation of tongue motion for AP transport. -Decreased bolus control w/ loss of >1/2 the bolus to the pyriforms prior to swallow onset. -Did not assess mastication as he is not appropriate for solid trials due to inability to fully close jaw s/p FOM and jaw reconstruction, as well as deficits in pharyngeal motility, edentulous status, and bolus control. The pharyngeal phase is primarily marked by... -Severely decreased tongue base retraction, pharyngeal stripping wave (minimal movement), and UES opening/duration resulting in moderate-severe pharyngeal residues, most notable w/ pudding trial. Thin and mildly thick liquids required 4-7 swallows to clear (trace residues remaining). -Decreased airway closure due to no anterior hyoid excursion, no epiglottic inversion, decreased laryngeal elevation. -Continued consistent laryngeal penetration across all consistencies that does not fully eject after the swallow. Trace silent aspiration of thin liquids via 10mL. The esophageal phase is marked by... -Retention of pudding in the upper and middle esophagus w/ retrograde flow through the UES, quick re-swallow which cleared pudding back through UES. Recommendations Diet: Puree Textures (Liquidized Purees [ok for small, minced lumps as tolerated]) and Thin Liquids Comment: Frequent oral care Intermittent cough and re-swallow Compensatory Strategies: Small Sips, Slow Rate, Multiple Swallows, Alternate bites/solids and sips/liquids, Sitting upright and Remain sitting upright for 30 minutes after PO intake Recommend Repeat Modified Barium Swallow: Yes Comment: Repeat MBSS in 6-12 months to monitor swallow function as the patient is at risk for worsening dysphagia and aspiration risk s/p chemoradiation treatment. Need for Skilled Speech Therapy Services: Yes Comment: Given presence of silent aspiration (absence of a clinical indicator of aspiration) observed during this MBSS, presence of tracheostomy, hx of esophageal dysmotility, and significant surgical reconstruction from hx of head and neck cancer, the patient is unfortunately not a candidate for participation in MDTP. Will resume dysphagia treatment w/ POC to include oropharyngeal strengthening, jaw ROM, and neck ROM exercises in junction w/ myofascial release, as well as training in strategies to facilitate safe po intake. Education Completed: 1. Described result of evaluation., 2. Pt understands evaluation & agrees with goals and treatment plan. and 4. Family/caregivers understand evaluation & agree w/ goals & tx plan. (Called daughter, Rox, w/ results of evaluation.) Status Active ST Patient: Active Contact Information [facility] Speech Therapy:: Latosha Boyer M.A. CCC-NURSE COORDINATOR? Speech-Language Pathologist?? [facility] [address] [place] [address]? [email or web address]?? [phone]
== END | disposition home or self-care (01) ==
PROVIDERS: PCP Nurse Practitioner Family; Referring Provider Student in an Organized Health Care Education/Training Program; Visit Provider Student in an Organized Health Care Education/Training Program
DX: C04.9 Malignant neoplasm of floor of mouth, unspecified (principal)
CPT/HCPCS: 74230; 92611

== ENCOUNTER → 2024-12-29 | Outpatient (CLI) | payer MEDICARE, SELFPAY ==
[2022-01-31 09:09] VITALS: BMI 22.6
--- NOTE | 2024-12-29 08:15 | CT_ITS ---
PROCEDURE: CHEST WITH CONTRAST 12/29/2024 REASON FOR EXAM: F/U RUL NODULE WITH NEGATIVE BX TECHNIQUE: Axial chest CT with intravenous contrast. Coronal and Sagittal reconstruction series were provided. CONTRAST: Isovue 370 VOLUME: 100 ML 18 gauge IV One or more dose reduction techniques were used (e.g., Automated exposure control, adjustment of the mA and/or kV according to patient size, use of iterative reconstruction technique). RADIATION DOSE SUMMARY: CTDlvol: 196 mGy DLP: 215.9 mGycm COMPARISON: None available FINDINGS: Hardware: Tracheostomy with tip terminating above the devika. Lymph nodes: No lymphadenopathy. Heart and Vasculature: The heart is normal in size. The great vessels are normal in size and caliber. No pericardial effusion. Lungs and Airways: Central airways are patent. Tiny less than 2 mm pulmonary nodules within the right upper lobe. Mild scarring within the bilateral apices. Mild upper lobe predominant centrilobular emphysematous changes. Streaky opacities in the bilateral lung bases, likely scarring or subsegmental atelectasis. Pleura: No pleural effusion or pneumothorax. Upper Abdomen: Partially visualized upper abdomen demonstrates no acute abnormality. Bones: No aggressive osseous lesions. No acute fractures. CT/Chest WITH Contrast IMPRESSION: 1. Mild upper lobe predominant centrilobular emphysematous changes within bilat eral lungs. 2. No acute pathology within the chest. 3. Tiny less than 2 mm pulmonary nodule within the right upper lobe. Reading Location: [facility]
== END | disposition home or self-care (01) ==
LOC: CT 08:04
PROVIDERS: PCP Nurse Practitioner Family; Referring Provider Internal Medicine Hematology & Oncology; Visit Provider Internal Medicine Hematology & Oncology
DX: R91.1 Solitary pulmonary nodule (principal)
CPT/HCPCS: 71260; Q9967

== ENCOUNTER 2025-02-02 10:37 | Outpatient (RCR) | payer MEDICARE, SELFPAY ==
[2022-01-31 09:09] VITALS: BMI 22.6
== END 2025-02-20 23:59 ==
LOC: NS 10:37
PROVIDERS: PCP Nurse Practitioner Family; Visit Provider Student in an Organized Health Care Education/Training Program
DX: Z71.3 Dietary counseling and surveillance (principal); R63.4 Abnormal weight loss; R13.19 Other dysphagia
CPT/HCPCS: 97803

== ENCOUNTER → 2025-03-03 | Outpatient (CLI) | payer MEDICARE, SELFPAY ==
[2022-01-31 09:09] VITALS: BMI 22.6
--- NOTE | 2025-03-03 15:19 | NEURO_ITS ---
NCS and/or EMG Patient Report Ordering Doctor: James Stephens DATE OF SERVICE: 03/03/25 Dread presents for electrodiagnostic testing of the upper limbs. He reports weakness and tingling in both hands. Electrodiagnostic findings: Median motor nerve demonstrates prolonged distal latency bilaterally with reduced amplitudes and reduced conduction velocities. Prolonged ulnar motor latency bilaterally with reduced amplitudes and reduced conduction velocities. Borderline prolonged median ulnar F?waves. Sensory responses were not obtainable. Needle EMG examination was performed in the upper limbs. Decreased recruitment pattern was noted in the first dorsal interosseous bilaterally and in the right triceps. Electrodiagnostic impression: This is an abnormal study in the upper limbs 1. Electrodiagnostic findings are suggestive of peripheral polyneuropathy, with motor and sensory nerve involvement and evidence of axonal loss. Would recommend correlation with the testing of the lower limbs for more accurate polyneuropathy diagnosis. 2. No electrodiagnostic evidence is noted for cervical radiculopathy Multi Select Codes Neurology Neurology Interp Codes: 34738-16 Musc test done w/n test comp (interp) (2) and 9 5912-26 Nrv cndj test 11-12 studies (interp)
== END | disposition home or self-care (01) ==
LOC: PSN 13:45
PROVIDERS: PCP Nurse Practitioner Family; Referring Provider Student in an Organized Health Care Education/Training Program; Visit Provider Student in an Organized Health Care Education/Training Program
DX: R20.2 Paresthesia of skin (principal); G56.23 Lesion of ulnar nerve, bilateral upper limbs
CPT/HCPCS: 95886; 95912

== ENCOUNTER → 2025-03-31 | Outpatient (CLI) | payer MEDICARE, SELFPAY ==
[2022-01-31 09:09] VITALS: BMI 22.6
--- NOTE | 2025-03-31 15:30 | NEURO ---
NCS and/or EMG Patient Report Ordering Doctor: James Stephens DATE OF SERVICE: 03/31/25 Dread presents for electrodiagnostic testing of the right lower limb. He does not report any significant symptoms but requires further evaluation for polyneuropathy. Electrodiagnostic findings: Absent right peroneal and tibial motor responses. Absent right sural and superficial peroneal responses. H?reflexes prolonged bilaterally. Needle EMG testing was performed in the right lower limb. 1+ fibrillations noted in the right gastrocnemius. Electrodiagnostic impression: This is an abnormal study. 1. 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 Today's study is evaluated in conjunction with upper extremity testing which was performed on March 03, 2025. 2. There is no electrodiagnostic evidence for lumbosacral radiculopathy Multi Select Codes Neurology Neurology Interp Codes: 86785-93 Musc test done w/n test comp (interp) and 97738-42 Nrv cndj tst 5-6 studies (interp)
--- OUTSIDE RECORDS SUMMARY | 2025-04-01 03:39 | XMS RPT_ITS | CCD ---
Author Organization [facility] CliniSynm Care Team Providers Care Astrochemist Name Role Phone Katharinaa Archana Unavailable Shane Gallo Unavailable Xavier Myers Unavailable Unavailable Unavailable Unavailable One Eighty Unavailable Eighty, One Unavailable Rachel Brooks Unavailable Unavailable Josefaesa Archana Unavailable Unavailable Jeana Gaspar Unavailable Caridad Gomez Unavailable Unavailable Lina Pretty Unavailable Unavailable Xavier Ponce Unavailable Unavailable Shane Gallo Unavailable Cieschioma ORNELAS Archana Unavailable Shane Gallo MD Unavailable Eighty, One Unavailable Xavier Ponce LPN Unavailable Unavailable Caridad Gomez LPN Unavailable Unavailable Unavailable Unavailable Ciesa, Archana Unavailable Unavailable Unavailable Ciesa, Archana Unavailable Sidagam, Brayan Unavailable Unavailable Rachel Brooks Unavailable BrandenAvinash zheng Unavailable Unavailable Ciesa BOOTH CLEANER, BOOTH CLEANER-C Kya Primary Care Provider Cidanya BOOTH CLEANER, BOOTH CLEANER-C Kya Referring Provider Dr. Santiago Sellers Attending Provider [phone] Dr. Santiago Sellers Referring Provider Dr. Quincy Simpson Attending Provider Dr. Donaldo Nichole Attending Provider [phone] Dr. Quincy Simpson Referring Provider Alissa BOOTH CLEANER, BOOTH CLEANER-C Marce Attending Provider Dr. Cesar Mcbride Emergency Provider Dr. Sonu Lee Admit Provider Dr. Sonu Lee Other Provider Katerin, BOOTH CLEANER-C Rehana Attending Provider Unavail able Dr. Dalila Melvin Attending Provider Dr. Dalila Melvin Other Provider Dr. Alan Miller Other Provider Ciesa, Kya Unavailable Unavailable Unavailable Gravius CAP PARTS CUTTER, Li Unavailable Unavailable Hubert DO, Jeana Unavailable Slarb DIRECTOR OF VALUATION, Mirna Unavailable Unavailable Ciesa, Kya Unavailable Jack FISH CLEANER, Sadie Unavailable Jack FISH CLEANER, Sadie Unavailable Unavailable Unavailable Ciesa BOOTH CLEANER, BOOTH CLEANER-C [facility] Primary Care Provider Dr. Santiago Sellers Attending Provider Dr. Santiago Sellers Referring Provider Ciesa BOOTH CLEANER, BOOTH CLEANER-C [facility] Referring Provider Dr. Quincy Simpson Attending Provider Cidanya BOOTH CLEANER, BOOTH CLEANER-C [facility] Primary Care Provider Dr. Santiago Sellers Attending Provider Dr. Santiago Sellers Referring Provider Cidanya BOOTH CLEANER, BOOTH CLEANER-C [facility] Primary Care Provider Dr. Santiago Sellers Attending Provider Dr. Santiago Sellers Referring Provider Dr. Cesar Mcbride Emergency Provider Dr. Sonu Lee Admit Provider Dr. Sonu Lee Other Provider Dr. Dalila Melvin Attending Provider Dr. Dalila Melvin Other Provider Dr. Alan Miller Other Provider Ciesa BOOTH CLEANER, BOOTH CLEANER-C [facility] Referring Provider Dr. Quincy Simpson Attending Provider Ciesa BOOTH CLEANER, BOOTH CLEANER-C [facility] Primary Care Provider Ciesa BOOTH CLEANER, BOOTH CLEANER-C [facility] Referring Provider Dr. Santiago Sellers Attending Provider Dr. Quincy Simpson Attending Provider Ciesa BOOTH CLEANER, BOOTH CLEANER-C [facility] Primary Care Provider Ciesa BOOTH CLEANER, BOOTH CLEANER-C [facility] Referring Provider Dr. Santiago Sellers Attending Provider Ciesa BOOTH CLEANER, BOOTH CLEANER-C [facility] Primary Care Provider Ciesa BOOTH CLEANER, BOOTH CLEANER-C [facility] Referring Provider Dr. Santiago Sellers Attending Provider Dr. Quincy Simpson Attending Provider Jack FISH CLEANER, Sadie Unavailable Jack FISH CLEANER, Sadie Unavailable Sabino QUESADA, Shane Paniagua Unavailable Eighty, One Unavailable Gravius CAP PARTS CUTTER, Li Unavailable Unavailable Jason DIRECTOR OF VALUATION, Caridad Unavailable Unavailable Kris DIRECTOR OF VALUATION, Xavier Unavailable Unavailable Hubert DO, Jeana Unavailable Haleigh DIRECTOR OF VALUATION, Mirna Unavailable Unavailable Unavailable Unavailable Ciesa BOOTH CLEANER, BOOTH CLEANER-C [facility] Primary Care Provider Dr. Santiago Sellers Attending Provider Ciesa BOOTH CLEANER, BOOTH CLEANER-C [facility] Primary Care Provider Dr. Santiago Sellers Attending Provider Ciesa BOOTH CLEANER, BOOTH CLEANER-C [facility] Referring Provider [phone] Dr. Quincy Simpson Attending Provider Cathy ALONZO Koki Unavailable Unavailable Jack FISH CLEANER, Sadie Attending Unavailable Jack FISH CLEANER, Sadie Referring Unavailable Jack FISH CLEANER, Sadie Consulting Unavailable Ciesa BOOTH CLEANER, BOOTH CLEANER-C [facility] Primary Care Provider Ciesa BOOTH CLEANER, BOOTH CLEANER-C [facility] Referring Provider [phone] Dr. Santiago Sellers Attending Provider Pedro Pablo, Mr. Segundo Ocampo Attending Harrisonab le Ciesa, Ms. Archana Primary Care Unavailable Stacy, Dr. True De La Cruz Referring Unava ilable Brooks, Dr. Rachel Mancia Attending Brittaney vailable Brooks, Dr. Rachel Mancia Referring Brittaney vailable Ciesa, Ms. Archana Primary Care Unavailable Brooks, Dr. Rachel Mancia Attending Brittaney vailable Ciesa, Ms. Archana Primary Care Unavailable Ciesa, Ms. Archana Referring Unavailable Brooks, Dr. Rachel Mancia Attending Brittaney vailable Brooks, Dr. Rachel Mancia Referring Brittaney vailable Ciesa, Ms. Archana Primary Care Unavailable Brooks, Dr. Rachel Mancia Attending Brittaney vailable Brooks, Dr. Rachel Mancia Referring Brittaney vailable Ciesa, Ms. Archana Primary Care Unavailable Brooks, Dr. Rachel Mancia Referring Brittaney vailable Ciesa, Ms. Archana Primary Care Unavailable Stacy, Dr. True De La Cruz Attending Unava ilable Ciesa, Ms. Archana Primary Care Unavailable Pedro Pablo, Mr. Segundo Ocampo Attending Harrisonab dillan Kumar, Dr. True De La Cruz Referring Unava ilable Ciesa, Ms. Archana Primary Care Unavailable Pedro Pablo, Mr. Segundo Ocampo Attending Unavailab dillan Kumar, Dr. True De La Cruz Referring Unava ilable Ciesa BOOTH CLEANER, BOOTH CLEANER-C [facility] Primary Care Provider Ciesa BOOTH CLEANER, BOOTH CLEANER-C [facility] Referring Provider [phone] Dr. Quincy Simpson Attending Provider Ciesa UNDERGROUND REPAIRER-FISH CLEANER, UNDERGROUND REPAIRER-MOLDING PROCESS TECHNICIAN, [facility] Primary Care Pr ovider Jeana Gaspar DO Unavailable Dr. Santiago Sellers Attending Provider Dr. Elliott Akhtar Attending Provider Dr. Elliott Akhtar Other Provider Ciesa BOOTH CLEANER, BOOTH CLEANER-C [facility] Primary Care Provider Ciesa BOOTH CLEANER, BOOTH CLEANER-C [facility] Referring Provider RACHEL BROOKS Referring Unavailable CIESA, [facility] Primary Care Unavailable Dr. Quincy Simpson MD Attending Provider Dr. Quincy Simpson MD Referring Provider Jack BOOTH CLEANER-C, Sadie Primary Care Provider Jack BOOTH CLEANER-CSadie Referring Provider Kalie BOOTH CLEANER-C, Loretta A Other Provider Dr. Quincy Simpson MD Other Provider Kalie BOOTH CLEANER-C, Loretta Murrell Attending Provider Dr. Elliott Akhtar DO Attending Provider Dr. Elliott Akhtar DO Other Provider Monica BOOTH CLEANER-C, [facility] Primary Care Provider Unavailab le Dr. Santiago Sellers DO Attending Provider Dr. Santiago Sellers DO Referring Provider Dr. Quincy Simpson MD Attending Provider Jack BOOTH CLEANER-C, Sadie Primary Care Provider Dr. Quincy Simpson MD Referring Provider Dr. Santiago Sellers DO Attending Provider Dr. Santiago Sellers DO Referring Provider Monica BOOTH CLEANER-C, [facility] Primary Care Provider Unavailab le Jack BOOTH CLEANER-C, Sadie Primary Care Provider Jack BOOTH CLEANER-C, Sadie Referring Provider Tatiana QUESADA, Dr. Mathew Attending Provider Tatiana QUESADA, Dr. Mathew Referring Provider Ciesa BOOTH CLEANER-C, [facility] Primary Care Provider Unavailab le Jack BOOTH CLEANER-C, Sadie Primary Care Provider Jack BOOTH CLEANER-C, Sadie Referring Provider Giovana REN, Dr. Gallagher Attending Provider Angelo REN, Dr. Ramirez Attending Provider Angelo REN, Dr. Ramirez Referring Provider Angelo REN, Dr. Ramirez Other Provider Shalom QUESADA, Dr. Burgos Attending Provider Ciesa UNDERGROUND REPAIRER-FISH CLEANER, UNDERGROUND REPAIRER-MOLDING PROCESS TECHNICIAN, Archana Primary Care Pr ovider JAELYN PATRICK Attending Unavailable CIESA, ARCHANA Primary Care Unavailable JAELYN PATRICK Attending Unavailable CIESA, ARCHANA Primary Care Unavailable RACHEL BROOKS Attending Unavailable CIESA, ARCHANA Primary Care Unavailable RACHEL BROOKS Attending Unavailable CIESA, ARCHANA Primary Care Unavailable RACHEL BROOKS Attending Unavailable CIESA, ARCHANA Primary Care Unavailable Jack, Sadei Referring Unavailable Quincy Simpson Attending Unavailable Jack, Sadie Primary Care Unavailable Jack, Sadie Primary Care Unavailable Angelo James Referring Unavailable Gabbie Stephenss Consulting Unavailable Loretta Rausch Attending Unavailable Jack, Sadie Referring Unavailable Santiago Sellers Attending Unavailable Jack, Sadie Primary Care Unavailable Ciesa BOOTH CLEANER, [facility] Referring Unavailable Ciesa BOOTH CLEANER, [facility] Primary Care Unavailable Quincy Simpson Attending Unavailable Jack, Sadie Primary Care Unavailable Santiago Sellers Attending Unavailable Jack, Sadie Primary Care Unavailable Felix Stephensolas Referring Unavailable Gabbie Stephenss Attending Unavailable Jack, Sadie Primary Care Unavailable Friend, Elliott Attending Unavailable Jack, Sadie Referring Unavailable Jack, Sadie Primary Care Unavailable Isckarus, Carmitaour Attending Unavailable Jack, Sadie Referring Unavailable Friend, Elliott Attending Unavailable Jack, Sadie Primary Care Unavailable Santiago Sellers Referring Unavailable Santiago Sellers Attending Unavailable Josefaesa BOOTH CLEANER, [facility] Care Unavailable Jack, Sadie Primary Care Unavailable Isckarus, Mansour Attending Unavailable Isckarus, Mansour Referring Unavailable Hanshaw, Loretta A Consulting Unavailable Jack, Sadie Primary Care Unavailable Isckarus, Mansour Referring Unavailable Isckarus, Mansour Attending Unavailable Jack, Sadie Primary Care Unavailable Isckarus, Mansour Referring Unavailable Isckarus, Mansour Attending Unavailable Jack, Sadie Primary Care Unavailable Verito, Santiago Attending Unavailable Friend, Elliott Attending Unavailable [facility] Unavailable Jack, Sadie Primary Care Unavailable Jack, Sadie Primary Care Unavailable Isckarus, Mansour Referring Unavailable Hanshaw, Loretta A Attending Unavailable Hanshaw, Loretta A Consulting Unavailable Isckarus, Mansour Consulting Unavailable Jack, Sadie Referring Unavailable Friend, Elliott Attending Unavailable Friend, Elliott Consulting Unavailable Jack, Sadie Primary Care Unavailable Jack, Sadie Referring Unavailable Jack, Sadie Primary Care Unavailable Isckarus, Mansour Attending Unavailable Jack, Sadie Primary Care Unavailable SpittleJames Referring Unavailable SpittleJames Attending Unavailable Santiago Sellers Referring Unavailable Santiago Sellers Attending Unavailable Jack, Sadie Primary Care Unavailable Jack, Sadie Primary Care Unavailable Isckarus, Mansour Referring Unavailable Isckarus, Mansour Attending Unavailable Jack, Sadie Primary Care Unavailable Jack, Sadie Referring Unavailable Isckarus, Mansour Attending Unavailable Jack, Sadie Primary Care Unavailable Santiago Sellers Attending Unavailable Jack, Sadie Primary Care Unavailable Tobi Sellerse Attending Unavailable Verito, Santiago Referring Unavailable Jack, Sadie Referring Unavailable FriendElliott Attending Unavailable Jack, Sadie Primary Care Unavailable Tobi Sellerse Attending Unavailable Jack, Sadie Primary Care Unavailable Medications Current Medications Medication Drug Class(es) Dates Sig (Normalized) Sig (Original) acetaminophen 32 mg/ml oral solution (10 sources) Start: 11-13-2021 acetaminophen 160 mg/5 mL oral liquid ; 15 by gastrostomy tube every 8 hours Quantity: 0 Refills: 0 Ordered: 13-Nov-2021 La Baez Start: 13-Nov-2021 Generic Substitution Allowed Start: 11-13-2021 acetaminophen 160 mg/5 mL (5 mL) suspension every 8 hours. 11/13/2021 Active Start: 01-30-2019 End: 02-19-2019 take 20 mL by mouth every six hours acetaminophen 160 mg/5 mL oral liquid ; 20 mL oral every 6 hours Quantity: 0 Refills: 0 Ordered: 31-Oct-2021 Pernell Miranda Start: 30-Jan-2019 End: 19-Feb-2019 Status: Discontinued Generic Substitution Allowed Start: 01-30-2019 take 20 mL by mouth every six hours for pain RA Fever Physician Office Secretary/Pain Reliever 160 MG/5ML Oral Suspension take 20 milliliters by mouth every 6 hours if needed for pain Quantity: 480 Refills: 0 Start : 30-Jan-2019 Active acetaminophen 325 mg / HYDROcodone bitartrate 5 mg oral tablet (3 sources) Opioid Agonist Start: 12-15-2021 take 1 tablet by mouth every six hours as needed Hydrocodone-Acetaminophen Active 1 TABLET PO EVERY 6 HOURS NEEDED 06 25December 15, 2021 1:43pm Start: 01-13-2019 take 1 tablet by evgeny th every six hours HYDROcodone-Acetaminophen 5-325 MG Oral Tablet take 1 tablet by mouth every 6 hours if needed DO NOT TAKE ANY E... Quantity: 12 Refills: 0 Start : 13-Jan-2019 Active acetaminophen 60 mg/ml / oxyCODONE hydrochloride 2 mg/ml oral solution (20 sources) Opioid Agonist Start: 11-13-2021 oxyCODONE-acet aminophen 10-300 mg/5 mL solution 5 mg every 4 hours if needed. 11/13/2021 Active Start: 01-26-2019 End: 02-01-2019 Oxycodone-Acetaminophen 1 TA BLET tablet Discontinued 1 - 2 {tbl} PO EVERY 4 HOURS NEEDED as needed for Pain 22 03January 26, 2019 12:00am January 31, 2019 12:00am February 01, 2019 12:07am Start: 01-26-2019 End: 02-01-2019 take 1 tablet by mouth every four hours as needed Oxycodone-Acetaminophen Discontinued 1 - 2 TABLET PO EVERY 4 HOURS NEEDED 30 6 January 25, 2019 11:00pm January 31, 2019 11:07pm amLODIPine 5 mg oral tablet (20 sources) Dihydropyridine Calcium Channel Syeda Start: 08-15-2021 take 1 tablet by mouth once daily Amlodipine 5 mg Tablet Active 5 mg PO DAILY January 23, 2022 12:00am Start: 08-15-2021 amLODIPine Bes ylate 5 MG Oral Tablet Quantity: 90 Refills: 0 Ordered: 15-Aug-2021 DO Start : 15-Aug-2021 Active ascorbic acid 250 mg oral tablet (20 sources) Vitamin C Start: 10-16-2021 ascorbic acid (Vitamin C) 250 mg tablet Take by mouth. 10/16/2021 Active ascorbic acid (V itamin C) 1,000 mg tablet Take by mouth. Active take 1 tablet by mouth once jewels y Vitamin C ; 1 tab(s) oral once a day Quantity: 0 Refills: 0 Ordered: 31-Oct-2021 Tova Donahue Generic Substitution Allowed Vitamin C Active Aspirin (2 sources) Platelet Aggregation Inhibitor, Nonsteroidal Anti-inflammatory Drug Start: 11-13-2021 End: 12-05-2021 aspirin ; 325 milligram(s) once a day - PEG Tube Quantity: 0 Refills: 0 Ordered: 13-Nov-2021 La Baez Start: 13-Nov-2021 End: 05-Dec-2021 Generic Substitution Allowed cefdinir 300 mg oral capsule (5 sources) Cephalosporin Antibacterial Start: 11-16-2022 take 1 capsule by mouth twice daily cefdinir (Omnicef) 300 mg capsule take 1 capsule by mouth twice a day for 14 days 11/16/2022 Active chlorhexidine gluconate 1.2 mg/ml mouthwash (20 sources) Start: 11-13-2021 chlorhexidine 0.12% mucous membrane liquid ; 15 milliliter(s) mucous membrane 3 times a day Quantity: 0 Refills: 0 Ordered: 13-Nov-2021 La Baez Start: 13-Nov-2021 Generic Substitution Allowed Start: 11-13-2021 chlorhexidine (Peridex) 0.12 % solution 15 mL. 11/13/2021 Active Start: 10-31-2021 End: 12-29-2021 Hibiclens 4 % External Liqui d USE DIRECTED. Quantity: 1 Refills: 0 Ordered: 31-Oct-2021 Milly Ash Start : 31-Oct-2021 End : 29-Dec-2021 Complete collagenase 0.25 unt/mg topical ointment (16 sources) Collagen-specific Enzyme Start: 04-25-2022 colla genase (SantyL) 250 unit/gram ointment Santyl 250 UNIT/GM External Ointment Quantity: 90 Refills: 0 Start : 25-Apr-2022 Active 04/25/2022 Active Start: 04-25-2022 collagenase (S antyL) 250 unit/gram ointment Santyl 250 UNIT/GM External Ointment Quantity: 90 Refills: 0 Start : 25-Apr-2022 Active 0 04/25/2022 Active fluticasone propionate 0.05 mg/actuat metered dose nasal spray (20 sources) Corticosteroid Start: 01-23-2022 Fluticasone Pr opionate Active 1 SPRAY INTRANASAL DAILY January 22, 2022 11:00pm Start: 09-26-2021 fluticasone (F lonase) 50 mcg/actuation nasal spray Administer into affected nostril(s). 09/26/2021 Active Start: 09-26-2021 End: 03-06-2023 Fluticasone Propionate 50 MC G/ACT Nasal Suspension Quantity: 16 Refills: 0 Ordered: 27-Sep-2021 DO Start : 26-Sep-2021 End : 06-Mar-2023 Complete folic acid 0.4 mg oral tablet (20 sources) Start: 09-15-2024 take 0.4 mg by mouth once daily Folic Acid 400 mcg tablet Active 0.4 mg PO DAILY September 15, 2024 1:00am Start: 10-16-2021 Folic Acid 400 MCG Oral Tablet Quantity: 0 Refills: 0 Ordered: 16-Oct-2021 DO Start : 16-Oct-2021 Active Start: 08-15-2021 take 1 tablet by evgeny th once daily folic acid 0.4 mg oral tablet ; 1 tab(s) oral once a day Quantity: 0 Refills: 0 Ordered: 31-Oct-2021 Tova Donahue Generic Substitution Allowed hydrogen peroxide 30 mg/ml topical solution (7 sources) Start: 11-13-2021 hydrogen perox merary 3 % external solution Apply topically. 11/13/2021 Active levothyroxine sodium 0.1 mg oral tablet (20 sources) l-Thyroxi ne Start: 08-06-2023 take 1 tablet by mouth once daily levothyroxine (Synthroid, Levoxyl) 100 mcg tablet Take 1 tablet (100 mcg) by mouth once daily. 08/06/2023 Active Start: 04-12-2023 Start: 01-31-2023 take 100 ug by mouth once jewels y Levothyroxine Active 100 ug PO DAILY January 31, 2023 10:00am PATIENT DOESN'T KNOW THE STRENGTH. Start: 01-31-2023 take 100 ug by mouth once jewels y Levothyroxine Active 100 MCG PO DAILY January 31, 2023 9:00am PATIENT DOESN'T KNOW THE STRENGTH. Start: 01-31-2023 take 100 ug by mouth once jewels y Levothyroxine Active 100 MCG PO DAILY January 31, 2023 10:00am PATIENT DOESN'T KNOW THE STRENGTH. Start: 01-21-2023 take 1 tablet by evgeny th once daily Levothyroxine Sodium 100 MCG Oral Tablet take 1 tablet by mouth once daily Quantity: 30 Refills: 0 Ordered: 21-Jan-2023 DO Start : 21-Jan-2023 Active Start: 01-21-2023 Start: 08-31-2022 Start: 05-22-2022 Start: 04-25-2022 take 1 tablet by evgeny th once daily Levothyroxine Sodium 125 MCG Oral Tablet 1 (one) Tablet daily for 0 days Quantity: 30 {Tablet} Refills: 0 Ordered: 25-Apr-2022 Jeana Gaspar DO Start : 25-Apr-2022 Active Start: 12-15-2021 End: 12-15-2021 Start: 11-13-2021 levothyroxine ; 125 microgram(s) by PEG tube once a day - PEG Tube Quantity: 0 Refills: 0 Ordered: 13-Nov-2021 La Baez Start: 13-Nov-2021 Generic Substitution Allowed Start: 11-13-2021 End: 08-31-2024 levothyroxine (Synthroid) 20 mcg/mL solution 125 microgram(s) by PEG tube once a day - PEG Tube 11/13/2021 08/31/2024 Discontinued (Med List Cleanup) Start: 11-13-2021 levothyroxine (Synthroid) 20 mcg/mL solution 125 microgram(s) by PEG tube once a day - PEG Tube 0 11/13/2021 Active Start: 11-01-2021 End: 08-31-2024 take 1 tablet by mouth once daily Levothyroxine Sodium 125 MCG Oral Tablet 1 (one) Tablet daily for 0 days Quantity: 30 {Tablet} Refills: 0 Ordered: 29-Mar-2022 Hubert Jeana Start : 29-Mar-2022 Active Start: 12-31-2020 Levothyroxine Sodium 75 MCG Oral Tablet Quantity: 30 Refills: 0 Ordered: 31-Dec-2020 DO Start : 31-Dec-2020 Active Start: 12-02-2020 take 1 tablet by evgeny once daily Synthroid 75 MCG Oral Tablet 1 (one) Tablet daily as directed for 0 days Quantity: 90 {Tablet} Refills: 2 Ordered: 02-Dec-2020 Xavier Ponce LPN Start : 02-Dec-2020 Active Start: 09-01-2020 End: 12-02-2020 Start: 08-25-2020 take 125 ug by mouth once jewels y Levothyroxine Active 125 MCG PO DAILY August 25, 2020 3:42pm PATIENT DOESN'T KNOW THE STRENGTH. Start: 08-25-2020 take 75 mg by mouth once daily Levothyroxine Active 75 MG PO DAILY August 25, 2020 3:42pm PATIENT DOESN'T KNOW THE STRENGTH. Start: 08-25-2020 End: 01-31-2023 take 125 ug by mouth once daily Levothyroxine Disconti nued 125 ug PO DAILY August 25, 2020 1:00am January 31, 2023 10:00am PATIENT DOESN'T KNOW THE STRENGTH. Start: 08-25-2020 End: 01-31-2023 take 125 ug by mouth once daily Levothyroxine Disconti nued 125 MCG PO DAILY August 25, 2020 12:00am January 31, 2023 9:00am PATIENT DOESN'T KNOW THE STRENGTH. Start: 08-25-2020 End: 01-31-2023 take 125 ug by mouth once daily Levothyroxine Disconti nued 125 MCG PO DAILY August 25, 2020 1:00am January 31, 2023 10:00am PATIENT DOESN'T KNOW THE STRENGTH. Start: 08-25-2020 take 125 ug by mouth once jewels y Levothyroxine Active 125 MCG PO DAILY August 25, 2020 12:00am PATIENT DOESN'T KNOW THE STRENGTH. Start: 08-25-2020 take 125 ug by mouth once jewels y Levothyroxine Active 125 MCG PO DAILY August 25, 2020 1:00am PATIENT DOESN'T KNOW THE STRENGTH. Start: 06-29-2020 Synthroid 50 M CG Oral Tablet 1 (one) Tablet take 2 tablets on Saturday and Saturday and 1 on other days for 90 days Quantity: 114 {Tablet} Refills: 2 Ordered: 29-Jun-2020 Kya Gonzalez CNP, CNP, Kya Browning Start : 29-Jun-2020 Active Comments: New dose Start: 04-14-2020 take 1 tablet by evgeny th once daily in the morning Synthroid 50 MCG Oral Tablet 1 (one) Tablet qam on empty stomach for 0 days Quantity: 30 {Tablet} Refills: 2 Ordered: 14-Apr-2020 Jeana Gaspar DO Start : 14-Apr-2020 Active take 1 tablet by evgeny th once daily Synthroid 75 mcg (0.075 mg) oral tablet ; 1 tab(s) oral once a day Quantity: 0 Refills: 0 Ordered: 31-Oct-2021 Tova Donahue Status: Discontinued Generic Substitution Allowed Comment on above: New dose 2 of the 50mcg q MWa nd Fid and 1 the other days, metroNIDAZOLE 250 mg oral tablet (5 sources) Nitroimidazole Antimicrobial Start: 01-15-20 take 1 tablet by mouth three times daily metroNIDAZOLE (Flagyl) 250 mg tablet Take 1 tablet (250 mg) by mouth 3 times a day. 01/14/2023 Active mineral oil-hydrophilic petrolatum (petrolatum) ointment (5 sources) Start: 11-13-19 mineral oil-hydrophilic petrolatum (petrolatum) ointment Apply topically. 11/13/2021 Active Start: 11-13-2021 mineral oil-hy drophilic petrolatum (petrolatum) ointment Apply topically. 0 11/13/2021 Active mupirocin 0.02 mg/mg topical ointment (20 sources) RNA Synthetase Inhibitor Antibacterial Start: 06-11-2023 mupirocin (Bactroban ) 2 % ointment APPLY NICKEL THICK TO LEFT JAW OPEN AREA DAILY 06/11/2023 Active Start: 04-09-2022 End: 06-18-2022 Mupirocin 2 % External Ointm ent APPLY A SMALL AMOUNT to the chin 3 times a day for 10 days. Quantity: 1 Refills: 0 Ordered: 09-Apr-2022 Rachel Brooks MD Start : 09-Apr-2022 End : 18-Jun-2022 Complete Start: 10-31-2021 End: 12-29-2021 Mupirocin 2 % External Ointm ent APPLY SPARINGLY TO AFFECTED AREA(S) TWICE DAILY Quantity: 1 Refills: 0 Ordered: 31-Oct-2021 Milly Ash Start : 31-Oct-2021 End : 29-Dec-2021 Complete nystatin 283821 unt/ml oral suspension (20 sources) Polyene Antifungal Start: 02-14-2022 take 1 mL by mouth every six hours as needed Nystatin 100,000 unit/mL suspension Active 1 mL PO EVERY 6 HOURS as needed for mouth irritation February 14, 2022 12:00am swish and spit - per Dr. Brooks's office Start: 02-14-2022 take 1 mL by mouth e very six hours Nystatin Active 1 ML PO EVERY 6 HOURS February 13, 2022 11:00pm swish and spit - per Dr. Brooks's office Start: 02-12-2022 End: 06-18-2022 take 5 mL by mouth three times daily Nystatin 231771 UNIT/ML Mouth/Throat Suspension 5ml swish and spit three times a day for 14 days Quantity: 210 Refills: 0 Ordered: 12-Feb-2022 Rachel Brooks MD Start : 12-Feb-2022 End : 18-Jun-2022 Complete Start: 01-03-2022 Nystatin 03511 0 UNIT/ML Mouth/Throat Suspension Quantity: 112 Refills: 0 Ordered: 03-Jan-2022 DO Start : 03-Jan-2022 Active oxyCODONE hydrochloride 5 mg oral tablet (20 sources) Opioid Agonist Start: 05-23-2022 take 1 tablet by mouth twice daily as needed for pain Oxycodone 5 mg tablet Active 5 mg PO TWICE A DAY as needed for pain May 23, 2022 12:00am Start: 05-03-2022 End: 05-10-2022 take 1 tablet by mouth every four hours as needed for pain Oxycodone 5 mg capsule Discontinued 5 mg PO Q4H as needed for pain 32 May 03, 2022 May 09, 2022 12:00am May 10, 2022 12:03am take one tab PO q4 hrs prn pain Start: 02-27-2022 End: 04-26-2022 take 1 tablet by mouth twice daily as needed for pain Oxycodone 5 mg capsule Discontinued 5 mg PO TWICE A DAY as needed for pain 60 March 27, 2022 April 25, 2022 12:00am April 26, 2022 12:04am take one tab bid prn pain Start: 01-24-2022 End: 02-14-2022 take 1 tablet by mouth twice daily as needed for pain Oxycodone 5 mg capsule Discontinued 5 mg PO TWICE A DAY as needed for Mouth Pain 42 January 24, 2022 February 13, 2022 12:00am February 14, 2022 12:03am take one tab twice daily as needed for pain Start: 01-10-2022 End: 01-24-2022 take 1 tablet by mouth every four to six hours as needed for pain Oxycodone 5 mg capsule Discontinued 5 mg PO TWICE A DAY as needed for Mouth Pain 30 January 10, 2022 January 23, 2022 12:00am January 24, 2022 10:54am take one tab PO q4-6 hrs as needed for pain Start: 01-03-2022 End: 01-10-2022 take 1 capsule by mouth twice daily as needed for pain Oxycodone 5 mg Capsule Discontinued 5 mg PO TWICE A DAY as needed for Mouth Pain 14 January 03, 2022 January 10, 2022 11:59am Start: 11-13-2021 oxyCODONE ; 5 milligram(s) by PEG tube every 4 hours, As Needed - Mod (4-6) - PEG Tube Quantity: 0 Refills: 0 Ordered: 13-Nov-2021 La Baez Start: 13-Nov-2021 Generic Substitution Allowed Start: 11-01-2021 End: 01-03-2022 take 1 tablet by mouth twice daily as needed for pain Oxycodone 5 mg tablet Discontinued 5 mg PO TWICE A DAY as needed for pain 30 December 20, 2021 January 02, 2022 12:00am January 03, 2022 12:03am take one tab PO bid prn pain Start: 03-04-2019 take 1-2 tablets by mouth every four to six hours as needed for pain oxyCODONE HCl - 5 MG Oral Tablet Take one to two tablets every four to six hours as needed for pain Quantity: 84 Refills: 0 Ordered: 01-Nov-2021 Willie Smith MD Start : 01-Nov-2021 Active Start: 01-30-2019 End: 02-05-2019 take 1 capsule by mouth every six hours oxyCODONE 5 mg oral capsule ; 1 cap(s) oral every 6 hours Quantity: 0 Refills: 0 Ordered: 31-Oct-2021 Pernell Miranda Start: 30-Jan-2019 End: 05-Feb-2019 Status: Discontinued Generic Substitution Allowed Comments: Caution federal law prohibits the transfer of this drug to any person other than the person for whom it was prescribed.It is very important that you take or use this exactly as directed. Do not skip doses or discontinue unless directed by your doctor.May cause drowsiness. Alcohol may intensify this effect. Use care when operating dangerous machinery.This prescription cannot be refilled.Using more of this medication than prescribed may cause serious breathing problems. Comment on above: Caution federal law prohibits the transfer of this drug to any person other than the person for whom it was prescribed.It is very important that you take or use this exactly as directed. Do not skip doses or discontinue unless directed by your doctor.May cause drowsiness. Alcohol may intensify this effect. Use care when operating dangerous machinery.This prescription cannot be refilled.Using more of this medication than prescribed may cause serious breathing problems. pantoprazole 40 mg delayed release oral tablet (2 sources) Proton Pump Inhibitor Start: 11-13-19 End: 12-13-19 take 1 tablet by mouth once daily Protonix 40 mg oral delayed release tablet ; 1 tab(s) by gastrostomy tube once a day Quantity: 30 Refills: 0 Ordered: 13-Nov-2021 La Baez Start: 13-Nov-2021 End: 12-Dec-2021 Generic Substitution Allowed Petrolatum (2 sources) Start: 11-13-19 22 petrolatum topical ; 1 application topically 3 times a day - to Incisions Quantity: 0 Refills: 0 Ordered: 13-Nov-2021 La Baez Start: 13-Nov-2021 Generic Substitution Allowed pilocarpine hydrochloride 5 mg oral tablet (20 sources) Cholinergic Receptor Agonist Start: 11-01-19 End: 08-06-20 24 take 1 tablet by mouth three times daily pilocarpine (Salagen) 5 mg tablet Take 1 tablet (5 mg) by mouth 3 times a day. 08/25/2023 Active polyethylene glycol 3350 37289 mg powder for oral solution (7 sources) Osmotic Laxative Start: 11-13-19 polyethylene glycol 3350 oral powder for reconstitution ; 17 gram(s) orally once a day Quantity: 0 Refills: 0 Ordered: 13-Nov-2021 La Baez Start: 13-Nov-2021 Generic Substitution Allowed Start: 11-13-2021 polyethylene g lycol (Glycolax, Miralax) 17 gram/dose powder Mix 17 g of powder and drink. 11/13/2021 Active Start: 11-13-2021 polyethylene g lycol (Glycolax, Miralax) 17 gram/dose powder Take 17 g by mouth. 11/13/2021 Active silver sulfADIAZINE 10 mg/ml topical cream (20 sources) Sulfonamide Antibacterial Start: 03-27-2022 silver sulfADIAZINE (SSD) 1 % cream SSD 1 % External Cream Quantity: 85 Refills: 0 Start : 27-Mar-2022 Active 03/27/2022 Active Start: 03-27-2022 SSD 1 % Sterile Supply Technician al Cream Quantity: 85 Refills: 0 Ordered: 27-Mar-2022 DO Start : 27-Mar-2022 Active Start: 02-06-2022 End: 09-02-2023 Silver Sulfadiazine 1 % crea m Discontinued 1 NMA TOPICAL TWICE A DAY 85 March 27, 2022 9:39am September 02, 2023 10:20am apply a 1.5 mm thickness to area of peeling sodium chloride 1000 mg oral tablet (20 sources) Start: 01-25-2022 sodium chlorid e 1,000 mg tablet Take by mouth. 01/25/2022 Active Start: 01-25-2022 Sodium Chlorid e 1 GM Oral Tablet Quantity: 60 Refills: 0 Ordered: 14-Feb-2022 DO Start : 25-Jan-2022 Active Start: 01-25-2022 take 3 g by mouth twice daily Sodium Chloride 1,000 mg Tablet,Soluble Active 3 g PO TWICE A DAY January 25, 2022 12:00am Start: 01-25-2022 take 3 g by mouth twice daily Sodium Chloride Active 3 GM PO TWICE A DAY January 24, 2022 11:00pm Terazosin (7 sources) alpha-Adrenergic Syeda Start: 11-13-2021 teraz osin ; 2 milligram(s) by PEG tube once (at bedtime) - PEG Tube Quantity: 0 Refills: 0 Ordered: 13-Nov-2021 La Baez Start: 13-Nov-2021 Generic Substitution Allowed Start: 11-13-2021 terazosin HCl (TERAZOSIN ORAL) 2 mg. 11/13/2021 Active vitamin e 180 mg oral capsule (20 sources) Start: 02-26-2022 take 1 capsule by mouth once daily vitamin E mixed 400 unit capsule Take 1 capsule by mouth once daily. 02/26/2022 Active Start: 02-26-2022 Start: 02-26-2022 Start: 02-26-2022 take 1 capsule by [facility] once daily Vitamin E 400 UNIT Oral Capsule 1 (one) Capsule daily for 30 days Quantity: 30 {Capsule} Refills: 2 Ordered: 26-Feb-2022 Mirna Ricardo LPN Start : 26-Feb-2022 Active Start: 05-17-2021 End: 07-31-2022 alpha tocopherol (Vitamin E) 670 mg (1,000 unit) capsule Take by mouth. 05/17/2021 Active VItamin E Active Completed/Discontinued Medications Medication Drug Class(es) Dates Sig (Normalized) Sig (Original) albuterol 0.417 mg/ml inhalation solution (20 sources) beta2-Adrenergic Agonist Start: 05-01-2023 Start: 07-04-2022 Albuterol Sulf ate 1.25 MG/3ML Inhalation Nebulization Solution 1 (one) Milliliter q 6 hours prn for 0 days Quantity: 1 {Each} Refills: 0 Ordered: 04-Jul-2022 Sadie Santiago CNP Start : 04-Jul-2022 Active Comments: Please give one box Start: 02-26-2022 Albuterol Sulf ate 1.25 MG/3ML Inhalation Nebulization Solution Quantity: 75 Refills: 0 Ordered: 26-Feb-2022 DO Start : 26-Feb-2022 Active Start: 02-26-2022 Albuterol Sulf ate 1.25 MG/3ML Inhalation Nebulization Solution 1 (one) Milliliter q 6 hours prn for 0 days Quantity: 1 {Each} Refills: 0 Ordered: 26-Feb-2022 Haleigh LEYVAMirna Start : 26-Feb-2022 Active Comments: Please give one box Start: 12-10-2021 take 1.25 mg by inha lation every four hours as needed Albuterol Sulfate 1.25 mg/3 mL solution for nebulization Active 1.25 mg INHALATION Q4H as needed for bronchospasm December 10, 2021 6:08pm albuterol 1.25 m g/3 mL nebulizer solution 1 VIAL EVERY 6 HOURS NEEDED Active albuterol 108 (9 0 Base) MCG/ACT inhaler every 4 hours. Active Albuterol Sulfat e inhalation 1.25mg/3ml PRN Active Comment on above: Please give one box azithromycin 250 mg oral tablet (20 sources) Macrolide Antimicrobial Start: 12-14-2019 End: 04-14-2020 Cancer med- pt unsure of name (15 sources) Cancer med- pt u nsure of name Inactive Cancer med- pt u nsure of name Active disulfiram 500 mg oral table t (20 sources) Aldehyde Dehydrogenase Inhibitor Start: 01-05-2019 End: 01-19-2019 Start: 01-05-2019 End: 01-19-2019 Antabuse 500 MG Oral Tablet 1 (one) Tablet q am x 1-2 weeks for 14 days Quantity: 14 {Tablet} Refills: 0 Ordered: 05-Jan-2019 Kya Gonzalez Start : 05-Jan-2019 End : 19-Jan-2019 Inactive Start: 01-05-2019 take 2 tablets by mo [facility] once daily in the morning Disulfiram 250 MG Oral Tablet take 2 tablets by mouth every morning for 1 TO 2 WEEKS Quantity: 28 Refills: 0 Start : 05-Jan-2019 Active doxycycline hyclate 100 mg oral tablet (20 sources) Tetracycline-class Drug Start: 02-15-2023 End: 03-06-2023 take 1 tablet by mouth twice daily doxycycline (Vibra-Tabs) 100 mg tablet Take 1 tablet (100 mg) by mouth 2 times a day. 0 02/15/2023 03/01/2023 Start: 12-27-2021 End: 06-18-2022 take 100 mg by mouth twice daily Doxycycline Monohydrate 25 mg/5 mL suspension for reconstitution Discontinued 100 mg PO TWICE A DAY 280 December 27, 2021 12:00am January 10, 2022 9:51am guaiFENesin 20 mg/ml oral solution (20 sources) Start: 04-30-2022 End: 02-13-2024 take 10 mL by mouth every four hours as needed for congestion Guaifenesin 100 mg/5 mL liquid Discontinued 200 mg PO Q4H as needed for congestion 473 April 30, 2022 12:00am February 13, 2024 10:28am take 10 mL PO q4 hrs prn Hibiclens 4% external liquid UAD (12 sources) Hibiclens 4% ext ernal liquid UAD Inactive Hibiclens 4% ext ernal liquid UAD Active ibuprofen 600 mg oral tablet (2 sources) Nonsteroidal Anti-inflammatory Drug Start: 01-08-2019 take 1 tablet by mouth every six hours Ibuprofen 600 MG Oral Tablet TAKE 1 TABLET BY MOUTH EVERY 6 HOURS Quantity: 30 Refills: 0 Start : 08-Jan-2019 Active levoFLOXacin 500 mg oral tablet (12 sources) Quinolone Antimicrobial Start: 01-14-2023 End: 01-28-2023 take 1 tablet by mouth once daily levoFLOXacin (Levaquin) 500 mg tablet Take 1 tablet (500 mg) by mouth once daily. 0 01/14/2023 01/28/2023 End: 06-18-2022 levoFLOXacin 500 MG Oral Tab let Quantity: 0 Refills: 0 Ordered: 18-Jun-2022 DO End : 18-Jun-2022 Complete levoFLOXacin 500 MG Oral Tablet Quantity: 0 Refills: 0 Ordered: 14-May-2022 DO Active lidocaine 25 mg/ml / prilocaine 25 mg/ml topical cream (20 sources) Antiarrhythmic, Amide Local Anesthetic Start: 01-05-2019 End: 04-05-2019 Lidocaine-Prilocaine 30 GM cream Discontinued 1 APPLICATIO TP DAILY NEEDED as needed for Not Specified 10 22January 05, 2019 1:05pm April 04, 2019 12:00am April 05, 2019 12:10am Start: 01-05-2019 End: 04-05-2019 Lidocaine-Prilocaine Discont inued 1 APPLICATIO TP DAILY NEEDED 10 22January 05, 2019 12:05pm April 04, 2019 11:10pm Magic Mouth Wash (20 sources) Start: 02-25-2019 End: 05-19-2019 take 1 mL by mouth every six hours as needed Magic Mouth Wash Discontinued 15 ML PO EVERY 6 HOURS NEEDED 240 February 25, 2019 10:43am May 19, 2019 11:46am Pharmacist: Compound with equal parts DiphenhydrAMINE, Mylanta, and Lidocaine Viscous. Start: 02-25-2019 End: 05-19-2019 take 1 mL by mouth every six hours as needed for pain Magic Mouth Wash Discontinued 15 mL PO EVERY 6 HOURS NEEDED as needed for Pain 240 February 25, 2019 12:00am May 19, 2019 11:46am Pharmacist: Compound with equal parts DiphenhydrAMINE, Mylanta, and Lidocaine Viscous. Start: 02-25-2019 End: 05-19-2019 take 1 mL by mouth every six hours as needed Magic Mouth Wash Discontinued 15 ML PO EVERY 6 HOURS NEEDED 240 February 24, 2019 11:00pm May 19, 2019 10:46am Pharmacist: Compound with equal parts DiphenhydrAMINE, Mylanta, and Lidocaine Viscous. Start: 02-25-2019 End: 05-19-2019 take 1 mL by mouth every six hours as needed Magic Mouth Wash Discontinued 15 ML PO EVERY 6 HOURS NEEDED 240 February 25, 2019 12:00am May 19, 2019 11:46am Pharmacist: Compound with equal parts DiphenhydrAMINE, Mylanta, and Lidocaine Viscous. metroNIDAZOLE compounding ki t (8 sources) miscellaneous medical supply misc (2 sources) Start: 06-09-2024 End: 03-01-2025 miscellaneous medical supply misc Indications: Tracheostomy dependence (Multi) , Cancer of oral cavity (Multi) Dispense XLT 6.0 mm inner cannulas 30 each 06/09/2024 03/01/2025 Discontinued (Med List Cleanup) Start: 06-09-2024 End: 06-09-2025 miscellaneous medical supply misc Indications: Tracheostomy dependence (Multi) , Cancer of oral cavity (Multi) Dispense XLT 6.0 mm inner cannulas 30 each 06/09/2024 06/09/2025 Active Mupirocin 2% external ointme nt (12 sources) Mupirocin 2% ext ernal ointment Inactive Mupirocin 2% ext ernal ointment Active 24 hr nicotine 0.875 mg/hr transdermal system (20 sources) Cholinergic Nicotinic Agonist Start: 01-05-2019 End: 02-16-2019 Start: 01-05-2019 End: 02-16-2019 apply 1 dose transdermal route every twenty-four hours Nicoderm CQ 21 MG/24HR Transdermal Patch 24 Hour 1 (one) Patch apply 1 patch qd x 6 wk for 42 days Quantity: 42 {Patch} Refills: 0 Ordered: 05-Jan-2019 Monica Kya Start : 05-Jan-2019 End : 16-Feb-2019 Inactive Comments: Stort patch on cigarette quit dateCall the office when complete then take the 14mg patch x 2 weeks, then the 7mg patch x 2 weeks Start: 01-05-2019 apply 1 dose transde rmal route once daily Nicotine 21 MG/24HR Transdermal Patch 24 Hour apply 1 patch once daily Quantity: 28 Refills: 0 Start : 05-Jan-2019 Active Comment on above: Stort patch on cigar ette quit dateCall the office when complete then take the 14mg patch x 2 weeks, then the 7mg patch x 2 weeks omeprazole 20 mg delayed rel ease oral capsule (20 sources) Proton Pump Inhibitor Start: 07-26-2021 End: 07-26-2021 Start: 04-28-2018 End: 01-02-2019 take 1 capsule by mouth once daily Omeprazole 20 MG Oral Capsule Delayed Release 1 (one) Capsule daily for 0 days Quantity: 60 {Capsule} Refills: 0 Ordered: 02-Jan-2019 Xavier Ponce LPN Start : 15-Dec-2018 End : 02-Jan-2019 Inactive Start: 04-28-2018 End: 12-19-2018 take 1 capsule by mouth twice daily Omeprazole 20 MG capsule Discontinued 20 mg PO TWICE A DAY 60 April 28, 2018 12:00am December 19, 2018 9:06am ondansetron 8 mg disintegrating oral tablet (20 sources) Serotonin-3 Receptor Antagonist Start: 01-05-2019 End: 02-14-2019 take 1 tablet by mouth every eight hours as needed for nausea Ondansetron 8 MG tablet,disintegrating Discontinued 8 mg PO EVERY 8 HOURS NEEDED as needed for Nausea 22 07January 05, 2019 12:00am February 13, 2019 12:00am February 14, 2019 12:07am Oxycodone 5mg- 1-2 tabs Q 4-6hrs PRN pain (12 sources) Oxycodone 5mg- 1 -2 tabs Q 4-6hrs PRN pain Active penicillin v potassium 500 mg oral tablet (8 sources) Start: 01-08-2019 End: 10-16-2021 take 1 tablet by mouth every six hours Penicillin V Potassium 500 MG Oral Tablet TAKE 1 TABLET BY MOUTH EVERY 6 HOURS to completion Quantity: 28 Refills: 0 Ordered: 08-Jan-2019 DO Start : 08-Jan-2019 End : 16-Oct-2021 Complete pentoxifylline 400 mg extended release oral tablet (20 sources) Blood Viscosity Physician Office Secretary Start: 10-20-2024 End: 02-02-2025 take 1 tablet by mouth twice daily at mealtime Pentoxifylline 400 mg tablet extended release Discontinued 400 mg PO TWICE A DAY October 20, 2024 1:00am February 02, 2025 9:32am must administer with a meal/food Start: 06-10-2023 Start: 04-22-2023 Start: 05-22-2022 Start: 04-23-2022 take 1 tablet by evgeny th once daily Pentoxifylline ER 400 MG Oral Tablet Extended Release 1 (one) Tablet daily for 0 days Quantity: 30 {Tablet} Refills: 0 Ordered: 24-Apr-2022 Sadie Santiago CNP Start : 24-Apr-2022 Active Start: 02-26-2022 take 1 tablet by evgeny th once daily Pentoxifylline ER 400 MG Oral Tablet Extended Release 1 (one) Tablet daily for 0 days Quantity: 30 {Tablet} Refills: 0 Ordered: 26-Feb-2022 Jeana Gaspar DO Start : 26-Feb-2022 Active Start: 12-15-2021 take 1 tablet by evgeny once daily Pentoxifylline ER 400 MG Oral Tablet Extended Release 1 (one) Tablet daily for 0 days Quantity: 30 {Tablet} Refills: 0 Ordered: 15-Dec-2021 Kya Gonzalez Mary Start : 15-Dec-2021 Active Start: 05-17-2021 Pentoxifylline ER 400 MG Oral Tablet Extended Release Quantity: 90 Refills: 0 Ordered: 27-Sep-2021 DO Start : 17-May-2021 Active Start: 05-17-2021 End: 10-20-2024 take 1 tablet by mouth three times daily at mealtime Pentoxifylline 400 mg tablet extended release Discontinued 400 mg PO THREE TIMES A DAY 90 July 31, 2022 11:01am October 20, 2024 12:35pm must administer with a meal/food pentoxifylline ( Trental) 400 mg ER tablet every 12 hours. Active take 1 tablet by evgeny once daily pentoxifylline 400 mg oral tablet, extended release ; 1 tab(s) oral once a day Quantity: 0 Refills: 0 Ordered: 31-Oct-2021 Tova Donahue Generic Substitution Allowed prochlorperazine 10 mg oral tablet (20 sources) Phenothiazine Start: 01-05-2019 End: 02-14-2019 take 1 tablet by mouth every six hours as needed for nausea Prochlorperazine Maleate 10 MG tablet Discontinued 10 mg PO EVERY 6 HOURS NEEDED as needed for Nausea 30 January 05, 2019 1:05pm February 13, 2019 12:00am February 14, 2019 12:07am RA Natural Vitamin E 268 MG (400 UNIT) Oral Capsule (5 sources) Start: 02-26-2022 take 1 capsule by mouth once daily RA Natural Vitamin E 268 MG (400 UNIT) Oral Capsule TAKE 1 CAPSULE BY MOUTH EVERY DAY Quantity: 30 Refills: 0 Ordered: 26-Feb-2022 DO Start : 26-Feb-2022 Active sulfamethoxazole 40 mg/ml / trimethoprim 8 mg/ml oral suspension (20 sources) Dihydrofolate Reductase Inhibitor Antibacterial, Sulfonamide Antimicrobial Start: 12-15-2021 Sulfamethoxazole-Tri methoprim 200-40 MG/5ML Oral Suspension Quantity: 120 Refills: 0 Ordered: 15-Dec-2021 DO Start : 15-Dec-2021 Active Start: 12-15-2021 End: 01-03-2022 Sulfamethoxazole-Trimethopri m 200-40 mg/5 mL suspension Discontinued 20 mL feeding tube TWICE A DAY 120 3 December 15, 2021 12:00am January 03, 2022 10:14am Start: 11-29-2021 Sulfamethoxazo le-Trimethoprim 800-160 MG Oral Tablet Quantity: 20 Refills: 0 Ordered: 29-Nov-2021 DO Start : 29-Nov-2021 Active TH Vitamin C TABS (20 sources) Start: 10-16-2021 TH Vitamin C T ABS Quantity: 0 Refills: 0 Ordered: 16-Oct-2021 DO Start : 16-Oct-2021 Active Thiamine (20 sources) Start: 01-02-2019 End: 12-14-2019 Start: 01-02-2019 End: 12-14-2019 take 1 capsule by mouth once daily Thiamine 50 MG Oral Capsule 1 (one) Capsule daily for 0 days Quantity: 30 {Capsule} Refills: 3 Ordered: 14-Dec-2019 Xavier Ponce LPN Start : 02-Jan-2019 End : 14-Dec-2019 Inactive Start: 01-02-2019 take 0.5 tablet by m outh once daily RA Vitamin B-1 100 MG Oral Tablet take 1/2 tablet by mouth once daily Quantity: 15 Refills: 0 Start : 02-Jan-2019 Active NEGATED: Highlighted row has not occurred!drug or medication (20 sources) No Known Histori aleksandra Medications NEGATED: Highlighted row has not occurred!No Known Historical Medications (19 sources) No Known Histori aleksandra Medications Problems Active Problems Problem Classification Problem Date Documented Da te Episodic/Chronic Acute bronchitis (20 sources) Acute bronchitis with bronchospasm; Translations: [Acute bronchitis, unspecified] Episodic Administrative/social admission (20 sources) Patient encounter status; Translations: [Counseling, unspecified] 05-19-2019 Episodic Comment on above: LIQUID DIET/PUREED Alcohol-related disorders (20 sources) Alcoholism; Translations: [Alcoholic] Resolved: 01-21-2023 12-15-2018 Chronic Comment on above: Daily 6 pack , [place] 12 pack for >20 years Daily 6 pack , [place] 12 pack for >20 yearsSending to 180 Allergic reactions (20 sources) 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; Translations: [Other specified disorders of the skin and subcutaneous tissue related to radiation] Episodic Cancer of bone and connective tissue (20 sources) Squamous cell carcinoma; 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 Cancer of head and neck (20 sources) Malignant tumor of tonsil; 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 ] Onset: 08-29-2023 11-07-2021 Chronic Comment on above: squamous cell Ca of neck and new squamous cell CA of anterior floor of mouth and madibleSurgeon Rachel Cavazoswler, with flap Donor site from left fibula and Left Alt, (-) Cancer; other and unspecified primary (20 sources) History of malignant neoplasm of head and/or neck; Translations: [Personal history of malignant neoplasm of other organs and systems] 03-20-2021 Episodic Cancer; other and unspecified primary (2 sources) Personal history of malignant neoplasm of other organs and systems; Translations: [Personal history of malignant neoplasm of other sites] Episodic Chronic obstructive pulmonary disease and bronchiectasis (20 sources) Bronchitis; Translations: [Bronchitis] 02-15-2022 Episodic Complications of surgical procedures or medical care (20 sources) Delayed healing of surgical wound; Translations: [Other complications of procedures, not elsewhere classified, initial encounter] Episodic Comment on above: Left jaw into neck Deficiency and other anemia (20 sources) Anemia; Translations: [Anemia, unspecified] 03-08-2021 Episodic Deficiency and other anemia (18 sources) Anemia, unspecified; Translations: [Anemia, unspecified] Episodic Deficiency and other anemia (2 sources) Deficiency and other anemia 11-11-2021 Diseases of mouth; excluding dental (20 sources) Xerostomia; Translations: [Dry mouth] Resolved: 07-22-2023 03-13-2021 Episodic Disorders of teeth and jaw (20 sources) Tooth disorder; Translations: [Dental disease] 08-15-2021 Episodic Comment on above: seeing dentist today Essential hypertension (20 sources) Hypertensive disorder; Translations: [Hypertension] 08-15-2021 Chronic Comment on above: at infusion center w as 182/[address] 195/95, Fluid and electrolyte disorders (20 sources) Hyponatremia; Translations: [Hyponatremia] Resolved: 07-22-2023 08-15-2021 Episodic Comment on above: says no beer since N ov apt Maintenance chemotherapy; radiotherapy (20 sources) Patient encounter status; Translations: [Encounter for antineoplastic chemotherapy] Chronic Malignant neoplasm without specification of site (20 sources) Squamous cell carcinoma; Translations: [Squamous carcinoma] 01-02-2019 Episodic Comment on above: 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 Bond and Dr. 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 Bond and Dr. 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 Bond and Dr. Higuera, has had chemo, surgery to remove tonsil and uvula improving back to work for a year gaining wt. 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 Bond and Dr. Higuera, has had chemo, surgery to remove tonsil and uvula improving back to work for a year gaining wt.Recent CT February 2021 and good, repeat in a year per Masci Mycoses (20 sources) Candidiasis of mouth; Translations: [Candidal stomatitis] Episodic Nutritional deficiencies (20 sources) Cobalamin deficiency; Translations: [B12 nutritional deficiency] 01-02-2019 Episodic Other aftercare (1 source) Encounter for adjustment and management of vascular access device; Translations: [Encounter for adjustment and management of vascular access device] Onset: 02-02-2025 Episodic Other ear and sense organ disorders (12 sources) Sensorineural hearing loss, bilateral; Translations: [Sensorineural hearing loss, bilateral] Onset: 11-07-2023 02-03-2024 Chronic Other ear and sense organ disorders (2 sources) Sensorineural hearing loss, bilateral; Translations: [Sensorineural hearing loss, bilateral] Onset: 11-07-2023 Chronic Other ear and sense organ disorders (20 sources) Tinnitus; Translations: [Tinnitus] 08-15-2021 Episodic Other ear and sense organ disorders (4 sources) Impaired auditory discrimination; Translations: [Impairment of auditory discrimination] Episodic Other endocrine disorders (20 sources) Syndrome of inappropriate vasopressin secretion; 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)] 02-15-2022 Chronic Other endocrine disorders (12 sources) Syndrome of inappropriate secretion of antidiuretic hormone; Translations: [Other disorders of neurohypophysis] Chronic Other gastrointestinal disorders (20 sources) Heartburn; Translations: [Heart burn] Resolved: 03-13-2021 12-15-2018 Episodic Other gastrointestinal disorders (20 sources) Oropharyngeal dysphagia; Translations: [Dysphagia, oropharyngeal phase] Onset: 09-02-2023 09-02-2023 Episodic Other gastrointestinal disorders (20 sources) Swallowing problem; Translations: [Swallowing impairment] Resolved: 04-03-2022 06-29-2020 Episodic Comment on above: Followed by Dr. Amparo guzman Other gastrointestinal disorders (20 sources) Dysphagia; Translations: [Dysphagia, unspecified] 11-07-2021 Episodic Other gastrointestinal disorders (20 sources) Esophageal dysphagia; Translations: [Other dysphagia] 04-13-2022 Episodic Other infections; including parasitic (20 sources) Disorder due to infection; Translations: [Infection] Resolved: 07-22-2023 12-15-2021 Episodic Comment on above: Pt asking for antibi otic and pain med Other lower respiratory disease (10 sources) Lung mass; Translations: [Pulmonary nodule] 12-19-2018 Episodic Comment on above: repeat CT in a year November 2019 Other lower respiratory disease (20 sources) Cough; Translations: [Cough] 04-14-2020 Episodic Comment on above: green, no fever, no sob temp per daughter 97.7 Other lower respiratory disease (20 sources) Solitary pulmonary nodule; Translations: [Nodule of lung] Onset: 10-20-2024 04-14-2020 Episodic Comment on above: repeat CT in a year November 2019 Other lower respiratory disease (20 sources) Multiple nodules of lung; Translations: [Other nonspecific abnormal finding of lung field] 05-23-2022 Episodic Other lower respiratory disease (20 sources) Other nonspecific abnormal finding of lung field; Translations: [Other nonspecific abnormal finding of lung field] Onset: 10-20-2024 Episodic Other lower respiratory disease (20 sources) Dyspnea; Translations: [Dyspnea, unspecified] 12-18-2021 Episodic Other nervous system disorders (20 sources) Pain due to neoplastic disease; Translations: [Neoplasm related pain (acute) (chronic)] 03-08-2021 Chronic Other nervous system disorders (18 sources) Neoplasm related pain (acute) (chronic); Translations: [Neoplasm related pain (acute) (chronic)] Chronic Other nervous system disorders (20 sources) Taste sense altered; Translations: [Disturbances of sensation of smell and taste] Episodic Other nervous system disorders (2 sources) Paresthesia of skin; Translations: [Paresthesia of skin] Onset: 03-05-2025 Episodic Other nutritional; endocrine; and metabolic disorders (20 sources) Body mass index less than 20; Translations: [Body mass index (BMI) of 19.0-19.9 in adult] 03-13-2021 Episodic Other nutritional; endocrine; and metabolic disorders (20 sources) Decreased body mass index; Translations: [Body mass index [BMI] 19.9 or less, adult] 12-15-2021 Episodic Other nutritional; endocrine; and metabolic disorders (5 sources) Weight decreased; Translations: [Abnormal weight loss] 12-22-2024 Episodic Other screening for suspected conditions (not mental disorders or infectious disease) (20 sources) Thyroid hormone tests abnormal; Translations: [Abnormal TSH] Resolved: 01-16-2023 04-14-2020 Episodic Other skin disorders (20 sources) Mass of neck; Translations: [Neck mass] Resolved: 01-16-2023 12-15-2018 Episodic Other skin disorders (20 sources) Cyst of skin; Translations: [Infected cyst of skin] Resolved: 04-14-2020 12-19-2018 Episodic Comment on above: INfected 2nd brachia l cleft cyst Other skin disorders (2 sources) Broken skin; Translations: [Skin breakdown] 07-24-2023 Episodic Other upper respiratory disease (6 sources) Tracheostomy present; Translations: [Tracheostomy status] Onset: 04-13-2024 08-31-2024 Chronic Other upper respiratory disease (3 sources) Dysphonia; Translations: [Dysphonia] 01-18-2025 Episodic Residual codes; unclassified (20 sources) Body mass index (BMI) 23.0-23.9, adult; Translations: [Body mass index 20-24 - normal] 12-15-2018 Episodic Residual codes; unclassified (1 source) Other specified health status; Translations: [No pertinent past medical history] Episodic Residual codes; unclassified (20 sources) H/O: chemotherapy; Translations: [Status post chemotherapy] 04-14-2020 Episodic Residual codes; unclassified (20 sources) Influenza vaccination declined; Translations: [Influenza vaccination declined (Renamed from Refused influenza vaccine)] 12-02-2020 Episodic Residual codes; unclassified (20 sources) History finding; Translations: [Other specified conditions influencing health status] Episodic Residual codes; unclassified (20 sources) Disturbance in sleep behavior; Translations: [Sleep disorder, unspecified] 12-27-2021 Episodic Residual codes; unclassified (6 sources) Sleep disorder, unspecified; Translations: [Sleep disturbance, unspecified] Episodic Residual codes; unclassified (20 sources) Pain; Translations: [Pain] 12-15-2021 Episodic Comment on above: in face neck and leg Residual codes; unclassified (14 sources) Vaccination not done; Translations: [Vaccination not carried out, unspecified reason] Episodic Screening and history of mental health and substance abuse codes (20 sources) Ex-smoker; Translations: [Former smoker] Resolved: 01-16-2023 03-13-2021 Episodic Comment on above: Quit 2019 Secondary malignancies (20 sources) 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; Translations: [Secondary and unspecified malignant neoplasm of lymph nodes, site unspecified] Onset: 08-29-2023 09-02-2023 Chronic Secondary malignancies (19 sources) Regional lymph node metastasis present ; Translations: [Secondary and unspecified malignant neoplasm of lymph node, unspecified] 09-07-2024 Chronic Secondary malignancies (20 sources) Secondary and unspecified malignant neoplasm of lymph node, unspecified; Translations: [Secondary and unspecified malignant neoplasm of lymph nodes, site unspecified] Onset: 08-29-2023 Chronic Skin and subcutaneous tissue infections (20 sources) Cellulitis; Translations: [Cellulitis, unspecified] 12-27-2021 Episodic Substance-related disorders (20 sources) Smoker; Translations: [Smoker] Resolved: 01-16-2023 12-15-2018 Chronic Thyroid disorders (20 sources) Hypothyroidism; Translations: [Hypothyroid] Onset: 08-29-2023 04-14-2020 Chronic Comment on above: new dx 04/11 keep taking synthroi d. Repeat labs Oct 06ne dx 04/11 Changing dose to 75 mcg dailynew dx 04/11 Changing dose to 75 mcg daily, repeat lab at AugSep 13new dx 04/11 Unclassified (20 sources) BMI 23.0-23.9, adult; Translations: [Body mass index 20-24 - normal] 01-02-2019 Unclassified (20 sources) Squamous carcinoma Unclassified (20 sources) B12 nutritional deficiency Unclassified (20 sources) Influenza vaccination declined; Translations: [Influenza vaccination declined (Renamed from Refused influenza vaccine)] 06-29-2020 Unclassified (20 sources) Swallowing impairment Unclassified (20 sources) Body mass index 20-24 - normal; Translations: [BMI 20.0-20.9, adult] 12-02-2020 Unclassified (18 sources) Body mass index (BMI) of 19.0-19.9 in adult Unclassified (18 sources) Dry mouth Unclassified (18 sources) Former smoker Unclassified (18 sources) Encounter for screening for malignant neoplasm of prostate (Renamed from Screening for prostate cancer) Unclassified (2 sources) LAVERTU: DIRECT LARYNGOSCOPY, ESOPHAGOSCOPY WITH PEG, BRONCHOSCOPY, TRACH, COMPOSITE RES/SEE SOARIAN 10-19-2021 Comment on above: LAVERTU: DIRECT NILTON NGOSCOPY, ESOPHAGOSCOPY WITH PEG, BRONCHOSCOPY, TRACH, COMPOSITE RES/SEE SOARIAN Unclassified (1 source) 2 WEEK POST OP 11-13-2021 Comment on above: 2 WEEK POST OP Unclassified (1 source) Squamous cell carcinoma of oral cavity 11-07-2021 Unclassified (2 sources) NEEDS TRACH DOC SENT 12-05-2021 Comment on above: NEEDS TRACH DOC SENT Unclassified (1 source) 3 WEEK FOLLOW UP 12-04-2021 Comment on above: 3 WEEK FOLLOW UP Unclassified (20 sources) Radiation-induced disorder; 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] 05-17-2021 Unclassified (1 source) Radiation injury; 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] 05-17-2021 Unclassified (5 sources) Radiation fibrosis 05-17-2021 Past or Other Problems Problem Classification Problem Date Documented Da te Episodic/Chronic Open wounds of head; neck; and trunk (20 sources) Open wound of chin; Translations: [Open wound of jaw, without mention of complication] Onset: 08-31-2024 08-31-2024 Episodic Other gastrointestinal disorders (3 sources) Other dysphagia; Translations: [Other dysphagia] Onset: 11-10-2024 08-30-2023 Episodic Other gastrointestinal disorders (2 sources) Dysphagia, oropharyngeal phase; Translations: [Dysphagia, oropharyngeal phase] Onset: 09-02-2023 Episodic Other gastrointestinal disorders (1 source) Dysphagia, unspecified; Translations: [Dysphagia, unspecified] Onset: 11-10-2024 Episodic Other injuries and conditions due to external causes (20 sources) Adverse effect of radiation therapy; Translations: [Other specified aftercare] Onset: 08-29-2023 08-29-2023 Episodic Other injuries and conditions due to external causes (6 sources) Radiation sickness, unspecified, subsequent encounter; Translations: [Other specified aftercare] Onset: 08-29-2023 08-31-2024 Episodic Other non-traumatic joint disorders (20 sources) Joint pain Resolved: 03-13-2021 12-15-2018 Episodic Unclassified (20 sources) Onset: 02-03-2024 Resolved: 03-01-2025 Unclassified (20 sources) Neck mass Unclassified (20 sources) Alcoholic Unclassified (20 sources) Pulmonary nodule Unclassified (20 sources) Infected cyst of skin Unclassified (2 sources) Patient encounter status; Translations: [Pre-op exam] Unclassified (1 source) History finding; Translations: [No pertinent past medical history] Unclassified (20 sources) Abnormal TSH Unclassified (20 sources) Status post chemotherapy Unclassified (15 sources) Low folate Unclassified (15 sources) Dental disease Unclassified (12 sources) 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) Unclassified (12 sources) Body mass index [BMI] 19.9 or less, adult Unclassified (12 sources) Infection Unclassified (11 sources) BMI less than 19,adult Unclassified (11 sources) SIADH (syndrome of inappropriate ADH production) Unclassified (11 sources) Cessation of tobacco use in previous 12 months Unclassified (20 sources) Unspecified Diagnosis 02-26-2022 Unclassified (20 sources) history of biopsy neck 04-22-2022 Unclassified (20 sources) malignant squamous cell carcinoma lt neck 04-22-2022 Unclassified (20 sources) peg tube removed 04-22-2022 Comment on above: June 2019 Unclassified (20 sources) s/p port placement Onset: 01-21-2019 04-22-2022 NEGATED: Highlighted row has not occurred!Residual codes; unclassified (5 sources) Disease Episodic Results Test Name Value Interpretation Reference Range Facility NCS and/or EMG Patienton NCS and/or EMG Patient [facility] Pulmonary Services/Neurology [address] [place] [address] MR#: [id number] Acct: [id number] Name: MY JAMA Rep #: [id number] : 1960 64 From: Loretta Rausch MD Referring Dr: James Stephens DO Status: REG C LI Location: [facility] Date: 03/03/25 Sex: M C NCS and/or EMG Patient Report Ordering Doctor: James Stephens DATE OF SERVICE: 03/03/25 My presents for electrodiagnostic testing of the upper limbs. He reports weakness and tingling in both hands. Electrodiagnostic findings: Median motor nerve demonstrates prolonged distal latency bilaterally with reduced amplitudes and reduced conduction velocities. Prolonged ulnar motor latency bilaterally with reduced amplitudes and reduced conduction velocities. Borderline prolonged median ulnar F???waves. Sensory responses were not obtainable. Needle EMG examination was performed in the upper limbs. Decreased recruitment pattern was noted in the first dorsal interosseous bilaterally and in the right triceps. Electrodiagnostic impression: This is an abnormal study in the upper limbs 1. Electrodiagnostic findings are suggestive of peripheral polyneuropathy, with motor and sensory nerve involvement and evidence of axonal loss. Would recommend correlation with the testing of the lower limbs for more accurate polyneuropathy diagnosis. 2. No electrodiagnostic evidence is noted for cervical radiculopathy Multi Select Codes Neurology Neurology Interp Codes: 53024-69 Musc test done w/n test comp (interp) (2) and 25316-44 Nrv cndj test 11-12 studies (interp) 03/03/25 1528 Date Loretta Rausch MD CC: BOOTH CLEANER-C Sadie Santiago; Dr. Loretta Rausch MD; Dr. James Stephens DO Date Dictated: 03/03/25 1519 Date Transcribed: 03/03/251518 Wood Router Hand: BROCK Signed Normal [facility] Gastroenterology Visit Repor ton 02-11-2025 Gastroenterology Visit Report [facility] Gastroenterology [address] [place] [address] OFFICE VISIT Date of Service: 02/11/25 MR#: [id number] Acct: [id number] Name: MY JAMA Rep #: [id number] : 1960 Provider: Elliott Akhtar DO Age/Sex: 64/M Location: [facility] [place] Status: Signed Intake Vital Signs 01/05/25 11:22 02/02/25 10:41 Height 5 ft 5 in 5 ft 5 in Intake Visit Reasons: FU Allergies No Known Allergies Allergy (Verified 02/02/25 09:31) Medications ???Medication ???Instructions ???Recorded ???Confirmed ???Type albuterol sulfate 1.25 mg/3 mL 1.25 mg (3 mL) inhalation Q4H PRN 12/10/21 02/11/25 Rx solution for nebulization bronchospasm #90 mL amlodipine 5 mg tablet 5 mg PO DAILY bp 01/23/22 02/11/25 History fluticasone propionate 50 1 spray intranasal DAILY PRN 01/2302/11/25 History mcg/actuation nasal health maintenance spray,suspension sodium chloride 1,000 mg soluble 3 g PO BID #60 tabs 01/25/2202/11 Rx tablet nystatin 100,000 unit/mL oral 1 ml PO Q6H PRN mouth irritation 0 02/14/22 02/11/25 History suspension oxycodone 5 mg tablet 5 mg PO BID PRN pain 05/23/2201/22 History Levothyroxine 100 mcg PO DAILY thyroid 01/31/23 02/11/25 History silver sulfadiazine 1 % topical 1 applic topical BID PRN skin 08/2302/11/25 History cream peeling folic acid 400 mcg tablet 0.4 mg PO DAILY 09/15/24 02/11/25 History Nurse's Note: Pt was scheduled for EGD on 04.15.25 at the end of their appt today. Reviewed prep instructions and which medications to hold prior to procedure with pt in office. A paper copy of EGD prep instructions were given to pt. Pt denies any questions or concerns at this time. 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 Hypertension Mass of left side of neck Difficulty swallowing Surgical History History of esophagogastroduodenosc opy (EGD) History of mandibular surgery Hx of tonsillectomy History of removal of Port-a-Cath s/p port placement ( 01/26/19) S/P percutaneous endoscopic gastrostomy (PEG) tube placement ( 01/26/19) history of biopsy neck Family History Mother CVA (cerebral vascular accident) Social History Smoking Status: Former smoker quit date: 09/16/21 Tobacco: How many years used: 30 how long ago did patient quit smokin-4 months ago second hand exposure: Yes alcohol intake: former details: August 2021 substance use type: does not use diet: other well-balanced diet: other details: on a soft food diet, hasn't used feeding tube since early October 2022 seatbelt use: sometimes do you feel safe at home: Yes HPI HPI Details: MY JAMA, is a 64 M who presents to the office today for follow up. 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 Underwent radiation with concurrent carboplatin for head/neck cancer. At follow up it was noted he has dysphagia. ? Modified Barium 7.22 moderate oropharyngeal dysphagia, mild esophageal dysphasia. ? Modified Barium 06.15.22 moderate-severe oropharyngeal phase dysphagia, puree texture. ? Modified Barium 08.05.23 severe oropharyngeal phase dysphagia, recommend puree texture. High risk for aspiration *[facility] established 08.30.23 he has had a tracheostomy for the last two years. He has been having difficulty swallowing foods with history as above. Daughter is concerned regarding frequent pneumonia during the winter months. EGD 09.03.23 Expiratory glottic narrowing was found.The nasopharynx and oropharynx are abnormal. Surgically absent larynx. Esophageal mucosal changes suggestive of eosinophilic esophagitis. Benign-appearing esophageal stenosis. Dilated. Small hiatal hernia. No gross lesions in the entire stomach. No gross lesions in the first portion of the duodenum. Biopsies were taken with a cold forceps for evaluation of eosinophilic esophagitis. OV 02.11.24 pt reports continued difficulty swallowing. EGD 02.20.24 The nasopharynx and oropharynx are abnormal. Benign-appearing esophageal stenosis. Dilated. Injected with botulinum toxin. No gross lesions in the (more content not included)... Normal [facility] Radiation Oncology Visiton 0 02-02-2025 Radiation Oncology Visit [facility] [address] [place] [address] OFFICE VISIT Date of Service: 02/02/25928 MR#: [id number] Acct: [id number] Name: MY JAMA Ymailet Rep #: [id number] : 1960 From: Santiago Sellers DO Age/Sex: 64/M Location: [facility] [place] Status: Signed Intake Vital Signs 08/06/24 09:41 01/05/25 11:22 02/02/25 09:30 Height 5 ft 5 in 5 ft 5 in 5 ft 5 in Weight: 120 lb 8 oz BMI 20.0 BP 148/80 H Blood Pressure Location Lt brachial Position Sitting Respiration 18 Pulse 70 Pulse Source Monitor Temp 98.4 F Temperature Source Temporal Artery Pulse Oximetry (%) 100 Oxygen Delivery Method room air Intake Visit Reasons: 6 MONTH F/U H/N Is patient in pain?: No Allergies No Known Allergies Allergy (Verified 02/02/25 09:31) Medications ???Medication ???Instructions ???Recorded ???Confirmed ???Type albuterol sulfate 1.25 mg/3 mL 1.25 mg (3 mL) inhalation Q4H PRN 12/10/21 02/02/25 Rx solution for nebulization bronchospasm #90 mL amlodipine 5 mg tablet 5 mg PO DAILY bp 01/23/22 02/02/25 History fluticasone propionate 50 1 spray intranasal DAILY PRN 01/2302/02/25 History mcg/actuation nasal health maintenance spray,suspension sodium chloride 1,000 mg soluble 3 g PO BID #60 tabs 01/25/2202/02 Rx tablet nystatin 100,000 unit/mL oral 1 ml PO Q6H PRN mouth irritation 0 02/14/22 02/02/25 History suspension oxycodone 5 mg tablet 5 mg PO BID PRN pain 05/23/2201/21 History Levothyroxine 100 mcg PO DAILY thyroid 01/31/23 02/02/25 History silver sulfadiazine 1 % topical 1 applic topical BID PRN skin 08/2302/02/25 History cream peeling folic acid 400 mcg tablet 0.4 mg PO DAILY 09/15/24 02/02/25 History 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 Hypertension Mass of left side of neck Difficulty swallowing Home Medications ???Medication ???Instructions ???Recorded ???Last Taken ???Type albuterol sulfate 1.25 mg/3 mL 1.25 mg (3 mL) inhalation Q4H PRN 12/10/21 Unknown Rx solution for nebulization bronchospasm #90 mL amlodipine 5 mg tablet 5 mg PO DAILY bp 01/23/22 09/03/23 History fluticasone propionate 50 1 spray intranasal DAILY PRN 01/23 Unknown History mcg/actuation nasal health maintenance spray,suspension sodium chloride 1,000 mg soluble 3 g PO BID #60 tabs 01/25/22 Unkno wn Rx tablet nystatin 100,000 unit/mL oral 1 ml PO Q6H PRN mouth irritation 0 02/14/22 Unknown History suspension oxycodone 5 mg tablet 5 mg PO BID PRN pain 05/23/22 Unkn own History Levothyroxine 100 mcg PO DAILY thyroid 01/31/23 10/21/24 03:00 History silver sulfadiazine 1 % topical 1 applic topical BID PRN skin 08/23 10/15 Unknown History cream peeling folic acid 400 mcg tablet 0.4 mg PO DAILY 09/15/24 Unknown H istory Allergy/AdvReac Type Severity Reaction Status Date / Time No Known Allergies Allergy Verified 02/02/25 09:31 Family History Mother CVA (cerebral vascular accident) Surgical History History of esophagogastroduodenosc opy (EGD) History of mandibular surgery Hx of tonsillectomy History of removal of Port-a-Cath s/p port placement ( 01/26/19) S/P percutaneous endoscopic gastrostomy (PEG) tube placement ( 01/26/19) history of biopsy neck Social History Smoking Status: Former smoker quit date: 09/16/21 Tobacco: How many years used: 30 how long ago did patient quit smokin-4 months ago second hand exposure: Yes alcohol intake: former details: August 2021 substance use type: does not use diet: other well-balanced diet: other details: on a soft food diet, hasn't used feeding tube since early October 2022 seatbelt use: sometimes do you feel safe at home: Yes Diagnosis: My Jama is a 64-year-old male diagnosed with 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 From 02/10/2019 ??? (more content not included)... Normal [facility] SP/HP.SPREEVon 01-21-2025 SP/HP.SPREEV [facility] Speech Pathology [facility] [address] [place] [address] / REEVALUATION / MEDICARE RECERTIFICATION SPEECH THERAPY MR#: [id number] Acct: [id number] Name: MY JAMA Rep #: [id number] : 1960 64 From: Latosha Boyer M.A., [facility] REGISTERED NURSE Referring Dr.: Dr. 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 From 02/10/2019 ??? 03/25/2019 he received definitive chemoradiation therapy. 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 He participated in additional chemoradiation therapy from 12/20/2021 ??? 02/06/2022. 11/07/2021: PEG tube placement, tracheostomy, composite resection of oral cavity, excision of skin and soft tissue, segmental mandibulectomy, right selective neck dissection and left neck exploration for vessels. Reconstruction was thigh free flap and had complex neck closure with split thickness skin graft. Trach was removed following surgery on 12/05/2021 with the trach re-inserted due to difficulty breathing when lying flat. Trach is chronic. Dysphagia History: Pt has followed with OP ST during and intermittently after radiation treatment to manage severe oropharyngeal dysphagia. PEG tube was removed summer. He sustains himself fully on oral diet of liquidized purees / thin liquids. Pt has participated in 8 MBSS (06/26/2019, 03/30/2020, 01/08/2022, 04/13/2022, 06/15/2022, 08/05/2023, 06/24/2024, 12/17/2024). Most recent MBSS 12/17/2024 revealed severe oropharyngeal dysphagia and recommended liquidized purees (ok for small, minced lumps) / thin liquids w/ recommendation for frequent oral care and the following strategies: Intermittent cough and re-swallow, Small Bites, Multiple Swallows, Alternate bites/solids and sips/liquids, Sitting upright and Remain sitting upright for 30 minutes after PO intake. Hx of esophageal dysphagia managed by passementerie worker, Dr. Akhtar, s/p EGD w/ botox injection and esophageal dilation of esophageal stenosis 02/03/2024. He participated in OP ST for myofascial release in junction with oropharyngeal strengthening and neck ROM exercises from 08/2023-10/2023 with improvements in swallowing, including advancing diet from purees to foods with soft, solid lumps (soups with small lumps), and improved neck ROM (L head rotation improved from 16 degrees to 37 degrees, R head rotation improved from 19 degrees to 35 degrees). He returned to OP ST 03/17/2024 for continued dysphagia therapy for myofascial release in junction w/ neck ROM exercises due to pt reporting sensation of decreased neck ROM and increased stiffness of neck. He has participated in 36 visits during this POC with implementation of myofascial release and jaw massage in junction w/ oropharyngeal strengthening, neck ROM, and jaw ROM exercise programs. The patient has progressed from full liquidized puree / thin liquid diet to liquidized purees with small lumps / thin liquids. He has demonstrated progress in neck ROM w/ left rotation at 42 degrees (improved 14 degrees since 03/19/2024 and right neck rotation at 43 degrees (improved 15 degrees from 03/19/2024). Pt has also improved jaw ROM (currently 43mm) by 2 degrees since 07/02/2024 w/ jaw stretching, massage, and myofascial release. 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 Goal 1 Status: GOAL MET. Previous Goal #2: The patient will complete jaw strength, coordination, and ROM exercises in junction w/ jaw massage and myofascial release s/p chemoradiation treatment to improve mastication abilities (X10 repetitions, 3-5X daily). Goal 2 Status: PROGRESSING - Currently 43mm of jaw opening measured fro (more content not included)... Normal [facility] Oncology Visit Reporton 12-22 Oncology Visit Report [facility] [address] [place] [address] OFFICE VISIT Date of Service: 01/05/25 1103 MR#: [id number] Acct: [id number] Name: MY JAMA Rep #: [id number] : 1960 From: Quincy Simpson MD Age/Sex: 64/M [place] [facility] Status: Signed HPI Subjective Date of Service 01/05/25 Chief Complaint Head and neck cancer follow-up History of Present Illness 64-year-old male Ex-smoker and heavy alcohol user who presented with a painless left neck mass that progressively increased in size over the course of the past couple of months. December 17, 2018 CT soft tissues of the neck: FINDINGS: There is a rim-enhancing centrally cystic mass distal to the angle the mandible, lateral to the hyoid cartilage, along the anterior margin of the sternocleidomastoid muscle. Wall thickness up to 4.9 mm. Process measures approximately 1.8 cm craniocaudal, 1.8 cm transverse, 2.9 cm anterior-posterior. Posteriorly and deep to the sternomastoid muscle, single mildly enlarged lymph node measuring 1.2 x 1.6 cm. A few additional shotty lymph nodes are present on the left. Normal thyroid. Normal submandibular glands and parotid glands. There is no right cervical lymphadenopathy. Pharyngeal and laryngeal soft tissues appear normal. Multilevel cervical spondylosis with disc disease most notable at C5-C6 with uncovertebral joint hypertrophy contributing to mild foraminal narrowing. Mucoperiosteal thickening and mucous retention cysts of the maxillary sinuses. Solitary opacified posterior right ethmoid sinus. Mastoid air cells and middle ear cavities clear. 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 December 17, 2018 CT chest: FINDINGS: Supraclavicular: No acute process within the [id number]. Body wall soft tissues: No acute process. Upper abdomen: No acute process. Osseous structures: No acute process. Mild scoliosis, moderate kyphosis, mild multilevel thoracic spondylosis. Mediastinum: No acute process. Cardiovascular: No acute process. Lungs: A few small scattered pulmonary nodules are present. The largest is in the right upper lobe anterior segment, series 6 image 73, 5 cm, solid features, smooth margins. Unremarkable airways. IMPRESSION: No acute thoracic process is evident. Small pulmonary nodules. The largest measures approximately 5 mm. Follow-up low-dose CT chest is recommended in 1 year for pulmonary nodule surveillance purposes. December 22, 2018 DIAGNOSIS CYTOLOGY A. 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 See comment. B. 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 ANTIBODY / CLONE RESULT Block A AE1-3 (AE1/AE3/PCK26) positive CK7 (OV-TL12/30) negative CK8 (81wddnZ72) positive, weak CK20 (KS20.8) negative TTF-1 (8G7G3/1) negative Napsin A (Rabbit Polyclonal) negative HepPar (OCh1E5) negative RCC (PN-15) negative PSAP (PASE/4LJ) negative CK5-6 (D5 1684) positive P16 (E6H4) negative P40 (BC28) positive, focal January 02, 2019: Patient was evaluated by ENT : oral and oropharyngeal mucosa were normal. Flexible laryngoscopy was performed which demonstrated no evidence of lesion. Small cystic lesion of the uvula was felt to be benign. January 05, 2019 PET/CT: IMPRESSION: 1. ABNORMAL EXAMINATION INDICATIVE OF MALIGNANT-VIABLE NEOPLASM. 2. Increased glucose concentration observed in the left lateral neck fulfills quantitative criteria for viable neoplasm. 3. Asymmetric enhanced FDG distribution noted in the left pharyngeal mucosal space may be further investigated with rigorous clinical examination. 4. No other quantitatively significant hypermetabolic abnormalities are noted. There is no definitive scintigraphic evidence of distant metastatic disease. January 30, 2019: left tonsil excision and uvula excision. Pathology displayed no evidence of malignancy or high-grade squamous dysplasia. There was noted to be submucosal dilated minor salivary gland duct with oncocytic metaplasia in the uvula. In preparation for locoregional combined chemoradiation patient Patient underwent multiple dental extractions, placement of PEG tube and port. February 10 through March 25, 2019 combined modality therapy (see below for details) May 13, 2019: CT chest: Comparison is made with prior study in December 17, 2018 There is persistent multifocal nodular pleural thickening or tiny pleural-based nodules in the lower lobes which are unchanged in size or number since previous study. The dominant nodule in the right lower lobe is not changed appreciably in size since prior exam June 29, 2019 PE (more content not included)... Normal [facility] Chest WITH Contraston 2024 Chest WITH Contrast [facility] Imaging Services [address] [place] [address]571 Chest WITH Contrast MR#: [id number] Acct: [id number] Name: MY JAMA Rep #: [id number] : 1960 64 From: Nayely Whyte MD PCP: YARI Santillan Status: REG CLI Study: Chest WITH Contrast Date of Exam: 12/29/24 Exam# [id number] Ordering Dr: Quincy Simpson MD PROCEDURE: CHEST WITH CONTRAST 12/29/2024 REASON FOR EXAM: F/U RUL NODULE WITH NEGATIVE BX TECHNIQUE: Axial chest CT with intravenous contrast. Coronal and Sagittal reconstruction series were provided. CONTRAST: Isovue 370 VOLUME: 100 ML 18 gauge IV One or more dose reduction techniques were used (e.g., Automated exposure control, adjustment of the mA and/or kV according to patient size, use of iterative reconstruction technique). RADIATION DOSE SUMMARY: CTDlvol: 196 mGy DLP: 215.9 mGycm COMPARISON: None available FINDINGS: Hardware: Tracheostomy with tip terminating above the devika. Lymph nodes: No lymphadenopathy. Heart and Vasculature: The heart is normal in size. The great vessels are normal in size and caliber. No pericardial effusion. Lungs and Airways: Central airways are patent. Tiny less than 2 mm pulmonary nodules within the right upper lobe. Mild scarring within the bilateral apices. Mild upper lobe predominant centrilobular emphysematous changes. Streaky opacities in the bilateral lung bases, likely scarring or subsegmental atelectasis. Pleura: No pleural effusion or pneumothorax. Upper Abdomen: Partially visualized upper abdomen demonstrates no acute abnormality. Bones: No aggressive osseous lesions. No acute fractures. CT/Chest WITH Contrast IMPRESSION: 1. Mild upper lobe predominant centrilobular emphysematous changes within bilateral lungs. 2. No acute pathology within the chest. 3. Tiny less than 2 mm pulmonary nodule within the right upper lobe. Reading Location: [id number] CC: YARI Santiago; Dr. Quincy Simpson MD Wood Router Hand: Signed Normal [facility] Modified Barium Swallow Stud n 12-17-2024 Modified Barium Swallow Study [facility] Speech Pathology [address] [place] [address] Modified Barium Swallow Study MR#: [id number] Acct: [id number] Name: MY JAAM Rep #: [id number] : 1960 64 From: Latosha Boyer M.A. [facility]VANCED PRACTICE REGISTERED NURSE Verbal discussion with patient about POC 12/18/2024: ADVANCED PRACTICE REGISTERED NURSE attempted to call the patient 12/17/[address] POC after interpretation of MBSS, but pt had phone difficulties. Pt came into the office 12/18/2024 for this discussion. Unfortunately, the patient is not a candidate for participation in [place] [facility]ysphagia Therapy Program (MDTP) following results of MBSS revealing silent aspiration. Pt also has contraindications including severe fibrosis, presence of trach, and esophageal dysphagia. ADVANCED PRACTICE REGISTERED NURSE recommended continuing with therapy 3- 4X/week, X3-5 weeks for implementation of oropharyngeal strengthening, jaw ROM, and neck ROM exercises in junction w/ myofascial release. Pt is unable to attend therapy this coming Saturday, and the ADVANCED PRACTICE REGISTERED NURSE is out of the office this upcoming Saturday. Myofascial release is best completed in a more intensive therapy model (ADVANCED PRACTICE REGISTERED NURSE recommends 3-4X/week, X3-5 weeks) to be effective. Pt requested resuming dysphagia therapy after ADVANCED PRACTICE REGISTERED NURSE submits re-evaluation as he would only be able to come to therapy for 3 consecutive days prior to insurance end date. 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 Determine candidacy for participation in MDTP. Medical History: Oncology PMH: The pt is a 64-year-old male diagnosed with clinical stage NOREEN (cTx cN2b M0) p16 negative SCC of unknown primary with left neck adenopathy in level 2-[address] neck and chest (12/17/2018), ultrasound-guided FNA of the left neck mass (12/22/2018), PET scan (01/05/2019), triple endoscopy with targeted left tonsillectomy (01/30/2019). From 02/10/2019 ??? 03/25/2019 he received definitive chemoradiation therapy. 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 11/07/2021: PEG tube placement, tracheostomy, composite resection of oral cavity, excision of skin and soft tissue, segmental mandibulectomy, right selective neck dissection and left neck exploration for vessels. Reconstruction was thigh free flap and had complex neck closure with split thickness skin graft. Trach was removed following surgery on 12/05/2021 with the trach re- inserted due to difficulty breathing when lying flat. Dysphagia History: Pt has followed with OP ST during and intermittently after radiation treatment to manage severe oropharyngeal dysphagia. PEG tube was removed summer. He sustains himself fully on oral diet of liquidized purees / thin liquids. Pt has participated in 7 MBSS (06/26/2019, 03/30/2020, 01/08/2022, 04/13/2022, 06/15/2022, 08/05/2023, 06/24/2024). Most recent MBSS 06/24/2024 revealed severe oropharyngeal dysphagia and recommended liquidized purees / thin liquids w/ use of recommended moist puree textures / thin liquids with frequent oral care and the following strategies: Cough and re-swallow after each sip, Small Bites, Multiple Swallows, Alternate bites/solids and sips/liquids, Sitting upright and Remain sitting upright for 30 minutes after PO intake. Hx of esophageal dysphagia managed by passementerie worker, Dr. Akhtar, s/p EGD w/ botox injection and esophageal dilation of esophageal stenosis 02/03/2024. He participated in OP ST for myofascial release in junction with oropharyngeal strengthening and neck ROM exercises from 08/2023- 10/2023 with improvements in swallowing, including advancing diet from purees to foods with soft, solid lumps (soups with small lumps), and improved neck ROM (L head rotation improved from 16 degrees to 37 degrees, R head rotation improved from 19 degrees to 35 degrees). He returned to OP ST 03/17/2024 for continued dysphagia therapy for myofascial release in junction w/ neck ROM exercises due to pt reporting sensation of decreased neck ROM and increased stiffness of neck. He has participated in 23 dysphagia treatment sessions during this POC. He returned for dysphagia treatment 12/18/2024 to continue oropharyngeal strengthening, neck ROM, and jaw ROM exercise in junction w/ myofascial release and to discuss candidacy for participation in the [place] Dysphagia Therapy Program (MDTP), an evidence, based, intensive, systematic exercise approach to dysphagia treatment. The patient was interested in the program, so ADVANCED PRACTICE REGISTERED NURSE recommended this MBSS as re- (more content not included)... Normal [facility] EGD Reporton 10-21-2024 EGD Report [facility] Medical Records Department [address] [place] [address] EGD Report MR#: [id number] Acct: [id number] Name: MY JAMA Rep #: [id number] : 1960 64 From: Elliott Akhtar DO PCP: YARI Santillan Status:REG [facility] Patient Name: My Jama Procedure Date: 10/21/2024 6:29 AM Date of : 1960 Age: 64 Procedure: Upper GI endoscopy Indications: Dysphagia Providers: Elliott Akhtar DO Referring MD: Yari Santillan Medicines: Monitored Anesthesia Care Patient Profile: This is a 64 year old male. Refer to note in patient chart for documentation of history and physical. Patient has symptoms of chronic dysphagia and dysphagia with both liquids and solids. Complications: No immediate complications. Procedure: Pre-Anesthesia Assessment: - Prior to the procedure, a History and Physical was performed, and patient medications and allergies were reviewed. The patient is competent. The risks and benefits of the procedure and the sedation options and risks were discussed with the patient. All questions were answered and informed consent was obtained. Patient identification and proposed procedure were verified by the physician in the pre-procedure area. Mental Status Examination: alert and oriented. Airway Examination: normal oropharyngeal airway and neck mobility. Respiratory Examination: clear to auscultation. CV Examination: normal. Prophylactic Antibiotics: The patient does not require prophylactic antibiotics. Prior Anticoagulants: The patient has taken no anticoagulant or antiplatelet agents. ASA Grade Assessment: II - A patient with mild systemic disease. After reviewing the risks and benefits, the patient was deemed in satisfactory condition to undergo the procedure. The anesthesia plan was to use monitored anesthesia care (MAC). Immediately prior to administration of medications, the patient was re-assessed for adequacy to receive sedatives. The heart rate, respiratory rate, oxygen saturations, blood pressure, adequacy of pulmonary ventilation, and response to care were monitored throughout the procedure. The physical status of the patient was re-assessed after the procedure. After obtaining informed consent, the endoscope was passed under direct vision. Throughout the procedure, the patient's blood pressure, pulse, and oxygen saturations were monitored continuously. The gastroscope was introduced through the mouth, and advanced to the duodenal bulb. The upper GI endoscopy was accomplished without difficulty. The patient tolerated the procedure well. Scope In: 7:15:44 AM Scope Out: 7:22:06 AM Total Procedure Duration Time 0 hours 6 minutes 22 seconds Findings: One benign-appearing, intrinsic severe stenosis was found 19 to 24 cm from the incisors. This stenosis measured 7 mm (inner diameter) x 5 cm (in length). The stenosis was traversed. A guidewire was placed and the scope was withdrawn. Dilation was performed with a Savary dilator with no resistance at 45 Fr. The dilation site was examined and showed moderate mucosal disruption. Estimated blood loss was minimal. A small hiatal hernia was present. No gross lesions were noted in the duodenal bulb. Impression: - Benign-appearing esophageal stenosis. Dilated. - Small hiatal hernia. - No gross lesions in the duodenal bulb. - No specimens collected. Recommendation: - Discharge patient to home. - Resume previous diet. - Continue present medications. Procedure Code(s): --- Professional --- 54350, Esophagogastroduodenosc opy, flexible, transoral; with insertion of guide wire followed by passage of dilator(s) through esophagus over guide wire CPT copyright 2021 [employer]. All rights reserved. The codes documented in this report are preliminary and upon fur polisher review may be revised to meet current compliance requirements. Elliott Akhtar DO 10/21/2024 7:30:22 AM This report has been signed electronically. Number of Addenda: 0 Note Initiated On: 10/21/2024 6:29 AM 10/21/2431 Date Elliott Akhtar DO Cosigner Signature: Date (if indicated) CC: BOOTH CLEANERLulu Santiago; Elliott Akhtar DO Date Dictated: 10/21/24628 Date Transcribed: Wood Router Hand: BK Signed [facility] MR/POSTOP.Bebo 10-21-2024 MR/POSTOP.[facility] Medical Records Department [address] [place] [address] Anesthesia Postop Eval I 10/21/2431 MR#: [id number] Acct: [id number] Name: MY JAMA Rep #: [id number] : 1960 64 From: Romulo Lockett PCP: ERWIN SantillanC Status:[facility] Y Race: C Location: [place] [address] Anesthesia: Postop Eval I Current Vital Signs Temperature: 97.8 F Pulse Rate: 63 Blood Pressure: 74/56 Respiratory Rate: 16 Pulse Ox: 100 Oxygen Delivery Method: Room Air Assessment Airway patent: Yes Spontaneous unlabored respirations: Yes Mental status: Asleep nausea: No Vomiting: No Anesthesia Complication: No Fluid Hydration Crystalloid volume administer (ml): 20 Total IV fluid infused: 20 Progress Note Anesthesia document: Postop Eval 1 completed: Yes 10/21/24731 Date Romulo Riosignallison Signature: Date CC: Signed Normal [facility] MR/[id number] 10-21-2024 [facility] Medical Records Department [address] [place] [address] Anesthesia Postop Eval II 10/21/24 0833 MR#: [id number] Acct: [id number] Name: MY JAMA W Rep #: [id number] : 1960 64 From: Ankit Clarke MD PCP: YARI Santillan Status:[facility] Y Race: C Location: [place] Anesthesia Postop Eval I Sum Postop Eval Completion status Anesthesia document: Postop Eval 1 completed: Yes Anesthesia Postop Eval I Summary Anesthesia Postop Eval I Summary: Anesthesia Postop Eval I: Assessment Summary Airway patent Yes 10/21/24 07:32 [email or web address] Spontaneous unlabored Yes 10/21/24 07:32 [email or web address] respirations Mental status Asleep 10/21/24 07:32 [email or web address] nausea No 10/21/24 07:32 [email or web address] Vomiting No 10/21/24 07:32 [email or web address] Anesthesia Postop Eval I: Fluid Summary Crystalloid volume administer 20 10/21/24 07:32 [email or web address] (ml) Colloids volume administered ( ml) Blood Product volume administered (ml) Total IV fluid infused 20 10/21/24 07:32 [email or web address] Anesthesia Postop Eval I: Summary Notes Anesthesia Complication No 10/21/24 07:32 [email or web address] Anesthesia Complication Comment: Post-operative progress note Anesthesia: Postop Eval II Evaluation Mental status: Awake and Calm Pain Level: 1 nausea: No Vomiting: No Complications Anesthesia Complication: No 10/22/24 0715 Date Ankit Clarke MD Cosigner Signature: Date CC: Signed Normal [facility] Oncology Visit Reporton Oncology Visit Report [facility] [address] [place] [address] OFFICE VISIT Date of Service: 09/28/24 1202 MR#: [id number] Acct: [id number] Name: MY JAMA Rep #: [id number] : 1960 From: Quincy Simpson MD Age/Sex: 64/M Location: [facility] [place] Status: Signed HPI Subjective Date of Service 09/28/24 Chief Complaint Head and neck cancer follow-up History of Present Illness 62-year-old male Ex-smoker and heavy alcohol user who presented with a painless left neck mass that progressively increased in size over the course of the past couple of months. December 17, 2018 CT soft tissues of the neck: FINDINGS: There is a rim-enhancing centrally cystic mass distal to the angle the mandible, lateral to the hyoid cartilage, along the anterior margin of the sternocleidomastoid muscle. Wall thickness up to 4.9 mm. Process measures approximately 1.8 cm craniocaudal, 1.8 cm transverse, 2.9 cm anterior-posterior. Posteriorly and deep to the sternomastoid muscle, single mildly enlarged lymph node measuring 1.2 x 1.6 cm. A few additional shotty lymph nodes are present on the left. Normal thyroid. Normal submandibular glands and parotid glands. There is no right cervical lymphadenopathy. Pharyngeal and laryngeal soft tissues appear normal. Multilevel cervical spondylosis with disc disease most notable at C5-C6 with uncovertebral joint hypertrophy contributing to mild foraminal narrowing. Mucoperiosteal thickening and mucous retention cysts of the maxillary sinuses. Solitary opacified posterior right ethmoid sinus. Mastoid air cells and middle ear cavities clear. 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 December 17, 2018 CT chest: FINDINGS: Supraclavicular: No acute process within the [id number]. Body wall soft tissues: No acute process. Upper abdomen: No acute process. Osseous structures: No acute process. Mild scoliosis, moderate kyphosis, mild multilevel thoracic spondylosis. Mediastinum: No acute process. Cardiovascular: No acute process. Lungs: A few small scattered pulmonary nodules are present. The largest is in the right upper lobe anterior segment, series 6 image 73, 5 cm, solid features, smooth margins. Unremarkable airways. IMPRESSION: No acute thoracic process is evident. Small pulmonary nodules. The largest measures approximately 5 mm. Follow-up low-dose CT chest is recommended in 1 year for pulmonary nodule surveillance purposes. December 22, 2018 DIAGNOSIS CYTOLOGY A. 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 See comment. B. 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 ANTIBODY / CLONE RESULT Block A AE1-3 (AE1/AE3/PCK26) positive CK7 (OV-TL12/30) negative CK8 (78fxdaB58) positive, weak CK20 (KS20.8) negative TTF-1 (8G7G3/1) negative Napsin A (Rabbit Polyclonal) negative HepPar (OCh1E5) negative RCC (PN-15) negative PSAP (PASE/4LJ) negative CK5-6 (D5 1684) positive P16 (E6H4) negative P40 (BC28) positive, focal January 02, 2019: Patient was evaluated by ENT : oral and oropharyngeal mucosa were normal. Flexible laryngoscopy was performed which demonstrated no evidence of lesion. Small cystic lesion of the uvula was felt to be benign. January 05, 2019 PET/CT: IMPRESSION: 1. ABNORMAL EXAMINATION INDICATIVE OF MALIGNANT-VIABLE NEOPLASM. 2. Increased glucose concentration observed in the left lateral neck fulfills quantitative criteria for viable neoplasm. 3. Asymmetric enhanced FDG distribution noted in the left pharyngeal mucosal space may be further investigated with rigorous clinical examination. 4. No other quantitatively significant hypermetabolic abnormalities are noted. There is no definitive scintigraphic evidence of distant metastatic disease. January 30, 2019: left tonsil excision and uvula excision. Pathology displayed no evidence of malignancy or high-grade squamous dysplasia. There was noted to be submucosal dilated minor salivary gland duct with oncocytic metaplasia in the uvula. In preparation for locoregional combined chemoradiation patient Patient underwent multiple dental extractions, placement of PEG tube and port. February 10 through March 25, 2019 combined modality therapy (see below for details) May 13, 2019: CT chest: Comparison is made with prior study in December 17, 2018 There is persistent multifocal nodular pleural thickening or tiny pleural-based nodules in the lower lobes which are unchanged in size or number since previous study. The dominant nodule in the right lower lobe is not changed appreciably in size since prior exam June 29, 2019 PE (more content not included)... Normal [facility] SP/HP.Ralph 09-22-2024 SP/HP.SPRV [facility] Speech Pathology [facility] [address] [place] [address]. [address] [place] [address] / REEVALUATION / MEDICARE RECERTIFICATION SPEECH THERAPY MR#: [id number] Acct: [id number] Name: MY JAMA Rep #: [id number] : 1960 64 From: Latosha Boyer M.A., [facility] REGISTERED NURSE Referring Dr.: Dr. 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 From 02/10/2019 ??? 03/25/2019 he received definitive chemoradiation therapy. 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 11/07/2021: PEG tube placement, tracheostomy, composite resection of oral cavity, excision of skin and soft tissue, segmental mandibulectomy, right selective neck dissection and left neck exploration for vessels. Reconstruction was thigh free flap and had complex neck closure with split thickness skin graft. Trach was removed following surgery on 12/05/2021 with the trach re-inserted due to difficulty breathing when lying flat. Dysphagia History: Pt has followed with OP ST during and intermittently after radiation treatment to manage severe oropharyngeal dysphagia. PEG tube was removed summer. He sustains himself fully on oral diet of liquidized purees / thin liquids. Pt has participated in 7 MBSS (06/26/2019, 03/30/2020, 01/08/2022, 04/13/2022, 06/15/2022, 08/05/2023, 06/24/2024). Most recent MBSS 06/24/224 revealed severe oropharyngeal dysphagia and recommended liquidized purees / thin liquids w/ use of recommended moist puree textures / thin liquids with frequent oral care and the following strategies: Cough and re-swallow after each sip, Small Bites, Multiple Swallows, Alternate bites/solids and sips/liquids, Sitting upright and Remain sitting upright for 30 minutes after PO intake. Hx of esophageal dysphagia managed by passementerie worker, Dr. Akhtar, s/p EGD w/ botox injection and esophageal dilation of esophageal stenosis 02/03/2024. He participated in OP ST for myofascial release in junction with oropharyngeal strengthening and neck ROM exercises from 08/2023- 10/2023 with improvements in swallowing, including advancing diet from purees to foods with soft, solid lumps (soups with small lumps), and improved neck ROM (L head rotation improved from 16 degrees to 37 degrees, R head rotation improved from 19 degrees to 35 degrees). He returned to 03/17/2024 for continued dysphagia therapy for myofascial release in [place] w/ neck ROM exercises due to pt reporting sensation of decreased neck ROM and increased stiffness of neck. He has participated in 23 dysphagia treatment sessions during this POC. Diagnosis Diagnosis: SCC of mandibular alveolar ridge C41.1 Pain Is pain an issue with your current prescribed condition?: No Personal Preferred language: [place] Patient Allergies Allergies Allergies: Allergies No Known Allergies Allergy (Verified 09/15/24 09:19) Previous/Current Goals Goals 1-5 Previous Goal #1: The patient will consume least restrictive diet textures without overt s/s of aspiration with 90% acc with independent use of strategies to decrease risk for aspiration. Goal 1 Status: Limited progress - Continued consumption of liquidized purees / thin liquids. Pt is well-aware of compensatory strategies to decrease risk for aspiration. He continues completing oral care throughout his day to decrease risk for aspiration related illness. Of note, his xerostomia has improved and he no longer requires medication to manage xerostomia. Previous Goal #2: The patient will complete jaw strength, coordination, and ROM exercises in junction w/ jaw massage and myofascial release s/p chemoradiation treatment to improve mastication abilities (X10 repetitions, 3-5X daily). Goal 2 Status: PROGRESSING - Pt has also improved jaw ROM (currently 44mm) by 3 degrees since 07/02/2024 w/ jaw stretching, massage, and myofascial release. Previous Goal #3: The patient will complete neck ROM exercises in [place] with myofascial release to improve and (more content not included)... Normal [facility] Chest Insp/Exp 2 Viewon 12-2 Chest Insp/Exp 2 View [facility] Imaging Services [address] [place], [place] [address] Chest Insp/Exp 2 View MR#: [id number] Acct: [id number] Name: MY JAMA Rep #: [id number] : 1960 M 64 From: Narendra Kincaid MD PCP: YARI Santillan Status: REG CLI Study: Chest Insp/Exp 2 View Date of Exam: 09/15/24 Exam# [id number] Ordering Dr: Loretta Jade [id number] STUDY: X-RAY CHEST REASON FOR EXAM: Male, 64 years old. post lung biopsy -- 2 hours post lung biopsy TECHNIQUE: Single AP portable view of the chest. COMPARISON: Earlier today FINDINGS: Tracheostomy tube which is unchanged. The lungs are clear and expanded. There is no demonstrated pleural abnormality. In particular, no pneumothorax after lung biopsy. Normal size heart. Normal mediastinum and michelle. Normal visualized pulmonary arteries. Normal visualized aortic arch and descending thoracic aorta. Normal visualized thoracic spine. Normal visualized ribs, clavicles, and shoulders. There is no demonstrated abnormality of the visualized soft tissue structures of the upper abdomen. RAD/Chest Insp/Exp 2 View IMPRESSION: No pneumothorax. Electronically Signed: Narendra Kincaid MD at 12:46 EST , CC: YARI Santiago; YARI Jade Wood Router Hand: Signed Normal [facility] Chest Insp/Exp 2 View [facility] Imaging Services [address] [place] [address] Chest Insp/Exp 2 View MR#: [id number] Acct: [id number] Name: MY JAMA Rep #: [id number] : 1960 M 64 From: Narendra Kincaid MD PCP: YARI Santillan Status: REG CLI Study: Chest Insp/Exp 2 View Date of Exam: 09/15/24 Exam# [id number] Ordering Dr: Loretta Jade [id number] STUDY: X-RAY CHEST REASON FOR EXAM: Male, 64 years old. post lung biopsy -- Immediately post lung biopsy TECHNIQUE: Frontal inspiratory and expiratory views COMPARISON: None. FINDINGS: Tracheostomy tube with the tip above the devika. The lungs are clear and expanded. There is no demonstrated pleural abnormality. In particular, no pneumothorax after lung biopsy. Normal size heart. Normal mediastinum and michelle. Normal visualized pulmonary arteries. Normal visualized aortic arch and descending thoracic aorta. There is a levoscoliosis of the thoracic spine. Normal visualized ribs, clavicles, and shoulders. There is no demonstrated abnormality of the visualized soft tissue structures of the upper abdomen. RAD/Chest Insp/Exp 2 View IMPRESSION: No pneumothorax after lung biopsy. Electronically Signed: Narendra Kincaid MD at 11:08 EST , CC: YARI Santiago; YARI Jade Wood Router Hand: Signed Normal [facility] International normalized rat io (INR) calculationOrdered By: Loretta Jade on 09-15-2024 INR Coag (Bld) [Relative time] 1.0 {INR} [facility] Operative Reporton Operative Report [facility] [address] [place] [address] Operative Report 09/15/24 1122 MR#: [id number] Acct: [id number] Name: MY JAMA Rep #: [id number] : 1960 64 From: Loretta Jade BOOTH CLEANER-C PCP: Sadie Santiago NP-Damaris Status:REG CLI Location: CT Problems Associated Problem List Diagnoses (1) Right upper lobe pulmonary nodule: Procedures Radiology Radiology CT Procedures: 89034 Biopsy Lung Operative Report (Standard) Operative Information Date of Procedure: 09/15/24 Pre-Operative Diagnosis: right upper lobe lung nodule Post-Operative Diagnosis: right upper lobe lung nodule Surgery/Procedure Performed: ct guided lung biopsy ward nurse: No Type of Anesthesia: IV Sedation Procedure Start Time: 09:54 Procedure Stop Time: 10:18 Select all DRAINS/GRAFTS/IMPLANTS that apply: None Estimated Blood Loss: scant Specimen collected: Yes Description of specimen(s) removed: 6 biopsy cores Description of surgery: PROCEDURE: CT GUIDED CORE NEEDLE LUNG BIOPSY ORDERING PROVIDER: Dr. Simpson INDICATION: Male, 64 years old. Right upper lobe lung nodule. PROVIDER: Loretta Jade APRN-JOHNSON CONSENT: Written informed consent was obtained having explained the risks, benefits and alternatives in detail with the patient who accepted the risks and agreed to proceed. Laboratory review and clinical assessment was performed. PRE-PROCEDURE SEDATION ASSESSMENT: Current history and physical dictated by referring physician and reviewed. No clinical changes since date of exam. Patient has a Mallampati Score of Class 2 and ASA Class of 3. Patient does have pre- existing tracheostomy, for which we have trach mask present in the procedure room. PROCEDURAL SEDATION PROTOCOL: The Drugs used were: 1 mg Versed, IV, and 25 mcg Fentanyl, IV. The sedation time was: 24 minutes, starting at 9:54 AM and terminated at 10:18 AM. The procedural sedation protocol was independently monitored by the department nurse. RADIATION DOSAGE (Supplied By Facility): CTDIvol = 21.78 mGy, DLP = 249.37 mGycm Individualized dose optimization techniques were used for this CT. TECHNIQUE: The patient was placed in a supine position. A noncontrast CT was performed to localize the lesion in the right upper lobe. The skin surface was prepped with chlorhexidine and draped in a sterile fashion. 2% lidocaine was used for local anesthesia. Using CT guidance, a 20-gauge coaxial biopsy device was advanced to the periphery of the lesion. A total of 6 core specimens were obtained. Specimens were microscopically reviewed by pathology in the CT suite and placed in formalin solution. BioSentry tract sealant system was deployed at the biopsy site, and the biopsy needle was removed. A sterile occlusive dressing was applied to the biopsy site. The patient tolerated the procedure well. An immediate chest xray was ordered, per protocol. A negative biopsy does not exclude malignancy. Further imaging or clinical followup based on patient condition and degree of clinical suspicion for malignancy. Suggest rebiopsy, if biopsy results do not match with clinical scenario. IMPRESSION: CT directed core needle biopsy of right upper lobe lung nodule using CT image guidance with image documentation as described. Pathology results are pending. Procedural Sedation protocol utilized with independent monitoring by the department nurse. Surgical Findings: sample obtained Complications Complications: No 09/15/24 1141 Cosigner Signature (if applicable): CC: YARI Santiago; YARI Jade; Dr. Quincy Simpson MD Signed Normal [facility] Partial Thromboplast Timeon 09-15-2024 aPTT Coag (Bld) [Time] 31.3 s Normal 24.1-36.2 [facility] Comment on above: Performed By: #### L 100.1900, L300.3900, L300.4310 ####[facility] [address] [place], [address] Platelet countOrdered By: Christal Jade on 09-15-2024 Platelets (Bld) [#/Vol] 291 10*3/uL Normal 150-450 [facility] Comment on above: Performed By: #### L 100.1900, L300.3900, L300.4310 ####[facility] [address] [place], [address] Prothrombin Time w/INRon INR Coag (PPP) [Relative time] 1.0 {INR} Normal [facility] Comment on above: Performed By: #### L 100.1900, L300.3900, L300.4310 ####[facility] [address] [place], [address] PT Coag (PPP) [Time] 12.8 s Normal 11.7-14.9 [facility] Comment on above: Performed By: #### L 100.1900, L300.3900, L300.4310 ####[facility] [address] [place], [address] Prothrombin timeOrdered By: Loretta Jade on 09-15-2024 PT Coag (PPP) [Time] 12.8 s 11.7-14.9 [facility] Special Stain Group IIon Special Stain Group II ------ Patient Age/Sex Location Account Attending Physician MY JAMA 64/M CT [id number] Dr. Quincy Simpson MD Specimen: [id number] Received: 09/15/24 Status: ALEX Manley Num: [id number] Spec Type: ASP RAD Subm Dr: Dr. Quincy Simpson MD HEADER OPERATION: CT guided right lung biopsy PRE-OP DIAGNOSIS: Right upper love lung nodule TISSUE SUBMITTED: Right upper lung nodule, 20 g x 6 MICROSCOPIC DIAGNOSIS Right upper lung nodule, core biopsy: Fragments of benign lung parenchymal tissue, negative for malignancy. See comment. SJ 09/17/24 COMMENT The specimen is evaluated at the time of CT by Dr. Cope. Immediate Evaluation = Negative for malignant cells. Report called to Ms. Loretta Jade at 1025am on 09/15/24 Interstitial fibrosis and chronic inflammation are noted. Correlation with clinical, radiologic findings and appropriate follow up are necessary. MICROSCOPIC DESCRIPTION Slides are reviewed. GROSS DESCRIPTION Received is one container labeled with the patient name and designated right upper lung nodule. The specimen consists of multiple irregular fragments of light mcmahon soft tissue that in aggregate measure 0.5 x .1 x <0.1 cm. Two touch imprints are also prepared at time of core biopsy. The specimen is totally submitted in one cassette. /SJ:twin 09/15/24 TC:5 [facility] [address], [address]: Patient Age/Sex Location Account Attending Physician MY JAMA 64/M CT [id number] Dr. Quincy Simpson MD Signed (signature on file) Dr. Laurent Cope MD 09/17/24 1223 Normal [facility] Comment on above: Performed By: #### P SSII ####[facility] [address] [place], [place], [address] aPTT Coag (PPP) [Time]Ericka tyler By: Loretta Jade on 09-15-2024 aPTT Coag (Bld) [Time] 31.3 s 24.1-36.2 [facility] Oncology Visit Reporton 08-23 Oncology Visit Report [facility] [address] [place] [address] OFFICE VISIT Date of Service: 09/07/24 1341 MR#: [id number] Acct: [id number] Name: MY JAMA Rep #: [id number] : 1960 From: Quincy Simpson MD Age/Sex: 64/M [facility] [facility] Status: Signed HPI Subjective Date of Service 09/07/24 Chief Complaint Head and neck cancer follow-up History of Present Illness 62-year-old male Ex-smoker and heavy alcohol user who presented with a painless left neck mass that progressively increased in size over the course of the past couple of months. December 17, 2018 CT soft tissues of the neck: FINDINGS: There is a rim-enhancing centrally cystic mass distal to the angle the mandible, lateral to the hyoid cartilage, along the anterior margin of the sternocleidomastoid muscle. Wall thickness up to 4.9 mm. Process measures approximately 1.8 cm craniocaudal, 1.8 cm transverse, 2.9 cm anterior-posterior. Posteriorly and deep to the sternomastoid muscle, single mildly enlarged lymph node measuring 1.2 x 1.6 cm. A few additional shotty lymph nodes are present on the left. Normal thyroid. Normal submandibular glands and parotid glands. There is no right cervical lymphadenopathy. Pharyngeal and laryngeal soft tissues appear normal. Multilevel cervical spondylosis with disc disease most notable at C5-C6 with uncovertebral joint hypertrophy contributing to mild foraminal narrowing. Mucoperiosteal thickening and mucous retention cysts of the maxillary sinuses. Solitary opacified posterior right ethmoid sinus. Mastoid air cells and middle ear cavities clear. 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 December 17, 2018 CT chest: FINDINGS: Supraclavicular: No acute process within the ywqiv-ye-mfco. Body wall soft tissues: No acute process. Upper abdomen: No acute process. Osseous structures: No acute process. Mild scoliosis, moderate kyphosis, mild multilevel thoracic spondylosis. Mediastinum: No acute process. Cardiovascular: No acute process. Lungs: A few small scattered pulmonary nodules are present. The largest is in the right upper lobe anterior segment, series 6 image 73, 5 cm, solid features, smooth margins. Unremarkable airways. IMPRESSION: No acute thoracic process is evident. Small pulmonary nodules. The largest measures approximately 5 mm. Follow-up low-dose CT chest is recommended in 1 year for pulmonary nodule surveillance purposes. December 22, 2018 DIAGNOSIS CYTOLOGY A. 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 See comment. B. 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 ANTIBODY / CLONE RESULT Block A AE1-3 (AE1/AE3/PCK26) positive CK7 (OV-TL12/30) negative CK8 (71nffdK93) positive, weak CK20 (KS20.8) negative TTF-1 (8G7G3/1) negative Napsin A (Rabbit Polyclonal) negative HepPar (OCh1E5) negative RCC (PN-15) negative PSAP (PASE/4LJ) negative CK5-6 (D5 1684) positive P16 (E6H4) negative P40 (BC28) positive, focal January 02, 2019: Patient was evaluated by ENT : oral and oropharyngeal mucosa were normal. Flexible laryngoscopy was performed which demonstrated no evidence of lesion. Small cystic lesion of the uvula was felt to be benign. January 05, 2019 PET/CT: IMPRESSION: 1. ABNORMAL EXAMINATION INDICATIVE OF MALIGNANT-VIABLE NEOPLASM. 2. Increased glucose concentration observed in the left lateral neck fulfills quantitative criteria for viable neoplasm. 3. Asymmetric enhanced FDG distribution noted in the left pharyngeal mucosal space may be further investigated with rigorous clinical examination. 4. No other quantitatively significant hypermetabolic abnormalities are noted. There is no definitive scintigraphic evidence of distant metastatic disease. January 30, 2019: left tonsil excision and uvula excision. Pathology displayed no evidence of malignancy or high-grade squamous dysplasia. There was noted to be submucosal dilated minor salivary gland duct with oncocytic metaplasia in the uvula. In preparation for locoregional combined chemoradiation patient Patient underwent multiple dental extractions, placement of PEG tube and port. February 10 through March 25, 2019 combined modality therapy (see below for details) May 13, 2019: CT chest: Comparison is made with prior study in December 17, 2018 There is persistent multifocal nodular pleural thickening or tiny pleural-based nodules in the lower lobes which are unchanged in size or number since previous study. The dominant nodule in the right lower lobe is not changed appreciably in size since prior exam June 29, 2019 PE (more content not included)... Normal [facility] CREATININE FINGERSTICKon CREATININE WB < 1.0 Normal 0.70-1.30 [facility] Comment on above: Performed By: #### L 9100.0200 ####[facility] [address] [place], [address] EGFR WB > 60.0000 Normal >60 [facility] Comment on above: Performed By: #### L 9100.0200 ####[facility] [address] [place], [address] Chest WITH Contraston 2023 Chest WITH Contrast [facility] Imaging Services [address] [place] [address] Chest WITH Contrast MR#: [id number] Acct: [id number] Name: MY JAMA Rep #: [id number] : 1960 M 64 From: Bib ghosh MD PCP: Sadie Santiago NP-Damaris Status: REG CLI Study: Chest WITH Contrast Date of Exam: 08/25/24 Exam# [id number] Ordering Dr: [place] [id number] STUDY: CT CHEST WITH CONTRAST REASON FOR EXAM: Male, 64 years old. F/U LUNG NODULES -- IV CONTRAST ONLY RADIATION DOSAGE (If Supplied By Facility): CTDIvol = ( 9.91 ) mGy, DLP = ( 234.88 ) mGycm TECHNIQUE: Transaxial imaging was performed following intravenous administration of IV 100mL Isovue-370. Multiplanar coronal and sagittal images were reformatted. Individualized dose optimization techniques were used for this CT. COMPARISON: Comparison is made with prior study May 06, 2024. FINDINGS: CHEST A tracheostomy tube is seen within the trachea. There is a new 1 cm spiculated nodule in the peripheral lateral aspect of the right upper lobe as seen on axial image #44 and coronal image #137. Stable scarring along the anterior aspect of both upper lobes more pronounced on the left side. The previously seen heterogeneous area of infiltrate in the posterior segment of the right lower lobe has cleared. There is no demonstrated pleural abnormality. Normal heart and pericardium. No coronary artery calcification is seen. Normal mediastinum. Normal hilar regions. Normal unenhanced pulmonary arteries. Normal aorta arch and descending thoracic aorta. There are multi-level degenerative changes of the thoracic spine. There is no demonstrated abnormality of the visualized upper abdomen. CT/Chest WITH Contrast IMPRESSION: New 1 cm spiculated nodule in the peripheral lateral aspect of the right upper lobe. Stable scarring at the lung apices anteriorly. The previously seen heterogeneous infiltrate in the posterior medial segment of the right lower lobe as result. Electronically Signed: Bib Reeves MD at 13:41 EST , CC: YARI Santiago; Dr. Quincy Simpson MD Wood Router Hand: Signed Normal [facility] Creatinine measurement at dsideOrdered By: Quincy Simpson on 08-25-2024 Bedside Creatinine < 1.0 mg/dL 0.70-1.30 [facility] EGFROrdered By: Quincy peters on 08-25-2024 Bedside Estimated GFR (eGFR) > 60.0000 mL/min >60 [facility] Gastroenterology Visit Repor ton 08-14-2024 Gastroenterology Visit Report [facility] [address] [place] [address] OFFICE VISIT Date of Service: 08/14/24 MR#: [id number] Acct: [id number] Name: MY JAMA Rep #: [id number] : 1960 Provider: Elliott Akhtar DO Age/Sex: 64/M [place] [facility] [place] Status: Signed Intake Vital Signs 02/03/24 14:06 08/06/24 10:53 Height 5 ft 5 in 5 ft 5 in Intake Visit Reasons: 6 M FU Allergies No Known Allergies Allergy (Verified 08/06/24 09:40) Medications ???Medication ???Instructions ???Recorded ???Confirmed ???Type albuterol sulfate 1.25 mg/3 mL 1.25 mg (3 mL) inhalation Q4H PRN 12/10/21 08/14/24 Rx solution for nebulization bronchospasm #90 mL amlodipine 5 mg tablet 5 mg PO DAILY bp 01/23/22 08/14/24 History fluticasone propionate 50 1 spray intranasal DAILY health 01/23/22 08/14/24 History mcg/actuation nasal maintenance spray,suspension sodium chloride 1,000 mg soluble 3 g PO BID #60 tabs 01/25/22 08/14/24 Rx tablet nystatin 100,000 unit/mL oral 1 ml PO Q6H PRN mouth irritation 02/14/22 08/14/24 History suspension oxycodone 5 mg tablet 5 mg PO BID PRN pain 05/23/22 08/14/24 History pentoxifylline 400 mg 400 mg PO TID radiation fibrosis 07/31/22 08/14/24 Rx tablet,extended release #90 tabs Levothyroxine 100 mcg PO DAILY thyroid 01/31/23 08/14/24 History silver sulfadiazine 1 % topical 1 applic topical BID PRN skin 09/02/23 08/14/24 History cream peeling PFSH Medical History Wears hearing aid Wears glasses MRSA infection Cancer Alcohol use Open neck wound Thyroid disease Dietary restriction Former smoker Soft tissue radionecrosis Encounter for chemotherapy management Thrush, oral Sleep disturbance Cellulitis 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 peg tube removed Anemia Cancer related pain 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 cell carcinoma lt neck Hypertension Mass of left side of neck Difficulty swallowing Surgical History History of mandibular surgery Hx of tonsillectomy History of removal of Port-a-Cath s/p port placement ( 01/26/19) S/P percutaneous endoscopic gastrostomy (PEG) tube placement ( 01/26/19) history of biopsy neck Family History Mother CVA (cerebral vascular accident) Social History Tobacco: How many years used: 30 how long ago did patient quit smokin-4 months ago second hand exposure: Yes alcohol intake: former details: August 2021 substance use type: does not use diet: other well-balanced diet: other details: on a soft food diet, hasn't used feeding tube since early October 2022 seatbelt use: sometimes do you feel safe at home: Yes HPI HPI Details: MY JAMA, is a 64 M who presents to the office today for follow up. 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 Underwent radiation with concurrent carboplatin for head/neck cancer. At follow up it was noted he has dysphagia. ? Modified Barium 04.13.22 moderate oropharyngeal dysphagia, mild esophageal dysphasia. ? Modified Barium 06.15.22 moderate-severe oropharyngeal phase dysphagia, puree texture. ? Modified Barium 08.05.23 severe oropharyngeal phase dysphagia, recommend puree texture. High risk for aspiration *[facility] established 08.30.23 he has had a tracheostomy for the last two years. He has been having difficulty swallowing foods with history as above. Daughter is concerned regarding frequent pneumonia during the winter months. EGD 09.03.23 Expiratory glottic narrowing was found.The nasopharynx and oropharynx are abnormal. Surgically absent larynx. Esophageal mucosal changes suggestive of eosinophilic esophagitis. Benign-appearing esophageal stenosis. Dilated. Small hiatal hernia. No gross lesions in the entire stomach. No gross lesions in the first portion of the duodenum. Biopsies were taken with a cold forceps for evaluation of eosinophilic esophagitis. OV 02.11.24 pt reports continued difficulty swallowing. EGD 02.20.24 The nasopharynx and oropharynx are abnormal. Benign-appearing esophageal stenosis. Dilated. Injected with botulinum toxin. No gross lesions in the entire stomach. No gross lesions in the duodenal bulb. No specimens collected. Modified Barium Swallow 06.24.24 Severe oropharyngeal dysphagia OV 08.14.24 pt reports continued difficulty swallowing, denies other GI symptoms of concern at this time. Exam Const General: cooperative and comfortable Nutritional Appearance: average body habitus a (more content not included)... Normal [facility] Radiation Oncology Visiton 1 10-06-2023 Radiation Oncology Visit [facility] [address] [place] [address] OFFICE VISIT Date of Service: 08/06/24937 MR#: [id number] Acct: [id number] Name: MY JAMA Rep #: [id number] : 1960 From: Santiago Verito REN Age/Sex: 64/M Location: [facility] [place] Status: Signed Intake Vital Signs 02/03/24 14:06 07/01/24 10:57 08/06/24 09:41 Height 5 ft 5 in 5 ft 5 in 5 ft 5 in Weight: 122 lb 4 oz BMI 20.3 BP 120/74 Blood Pressure Location Rt brachial Position Sitting Respiration 18 Pulse 76 Pulse Source Monitor Temp 97.8 F Temperature Source Temporal Artery Pulse Oximetry (%) 99 Oxygen Delivery Method room air Intake Visit Reasons: 6 MONTH F/U H/N Is patient in pain?: No Allergies No Known Allergies Allergy (Verified 08/06/24 09:40) Medications ???Medication ???Instructions ???Recorded ???Confirmed ???Type albuterol sulfate 1.25 mg/3 mL 1.25 mg (3 mL) inhalation Q4H PRN 12/10/21 08/06/24 Rx solution for nebulization bronchospasm #90 mL amlodipine 5 mg tablet 5 mg PO DAILY bp 01/23/22 08/06/24 History fluticasone propionate 50 1 spray intranasal DAILY health 01/23/22 08/06/24 History mcg/actuation nasal maintenance spray,suspension sodium chloride 1,000 mg soluble 3 g PO BID #60 tabs 01/25/22 08/06/24 Rx tablet nystatin 100,000 unit/mL oral 1 ml PO Q6H PRN mouth irritation 02/14/22 08/06/24 History suspension oxycodone 5 mg tablet 5 mg PO BID PRN pain 05/23/22 08/06/24 History pentoxifylline 400 mg 400 mg PO TID radiation fibrosis 07/31/22 08/06/24 Rx tablet,extended release #90 tabs Levothyroxine 100 mcg PO DAILY thyroid 01/31/23 08/06/24 History silver sulfadiazine 1 % topical 1 applic topical BID PRN skin 09/02/23 08/06/24 History cream peeling 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 Hypertension Mass of left side of neck Difficulty swallowing Home Medications ???Medication ???Instructions ???Recorded ???Last Taken ???Type albuterol sulfate 1.25 mg/3 mL 1.25 mg (3 mL) inhalation Q4H PRN 12/10/21 Unknown Rx solution for nebulization bronchospasm #90 mL amlodipine 5 mg tablet 5 mg PO DAILY bp 01/23/22 09/03/23 History fluticasone propionate 50 1 spray intranasal DAILY health 01/23/22 Unknown History mcg/actuation nasal maintenance spray,suspension sodium chloride 1,000 mg soluble 3 g PO BID #60 tabs 01/25/22 Unknown Rx tablet nystatin 100,000 unit/mL oral 1 ml PO Q6H PRN mouth irritation 02/14/22 Unknown History suspension oxycodone 5 mg tablet 5 mg PO BID PRN pain 05/23/22 Unknown History pentoxifylline 400 mg 400 mg PO TID radiation fibrosis 07/31/22 Unknown Rx tablet,extended release #90 tabs Levothyroxine 100 mcg PO DAILY thyroid 01/31/23 09/03/23 History silver sulfadiazine 1 % topical 1 applic topical BID PRN skin 09/02/23 Unknown History cream peeling Allergy/AdvReac Type Severity Reaction Status Date / Time No Known Allergies Allergy Verified 08/06/24 09:40 Family History Mother CVA (cerebral vascular accident) Surgical History History of mandibular surgery Hx of tonsillectomy History of removal of Port-a-Cath s/p port placement ( 01/26/19) S/P percutaneous endoscopic gastrostomy (PEG) tube placement ( 01/26/19) history of biopsy neck Social History Tobacco: How many years used: 30 how long ago did patient quit smokin-4 months ago second hand exposure: Yes alcohol intake: former details: August 2021 substance use type: does not use diet: other well-balanced diet: other details: on a soft food diet, hasn't used feeding tube since early October 2022 seatbelt use: sometimes do you feel safe at home: Yes Diagnosis: My Jama is a 64-year-old male diagnosed with 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 From 02/10/2019 ??? 03/25/2019 he received definitive chemoradiation therapy consisting of 6996 cG (more content not included)... Normal [facility] SP/HP.Ralph 07-17-2024 SP/HP.MAME [facility] [address] [place] [address]. [address] [place] [address] / REEVALUATION / MEDICARE RECERTIFICATION SPEECH THERAPY MR#: [id number] Acct: [id number] Name: MY JAMA Rep #: [id number] : 1960 64 From: Latosha Boyer M.A., [facility] REGISTERED NURSE Referring Dr.: Dr. 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 From 02/10/2019 ??? 03/25/2019 he received definitive chemoradiation therapy. 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 11/07/2021: PEG tube placement, tracheostomy, composite resection of oral cavity, excision of skin and soft tissue, segmental mandibulectomy, righ t selective neck dissection and left neck exploration for vessels. Reconstruction was thigh free flap and had complex neck closure with split thickness skin graft. Trach was removed following surgery on 12/05/2021 with the trach re-inserted due to difficulty breathing when lying flat. Dysphagia History: Pt has followed with OP ST during and intermittently after radiation treatment to manage severe oropharyngeal dysphagia. PEG tube was removed summer. He sustains himself fully on oral diet of liquidized purees / thin liquids. Pt has participated in 7 MBSS (06/26/2019, 03/30/2020, 01/08/2022, 04/13/2022, 06/15/2022, 08/05/2023, 06/24/2024). Most recent MBSS 06/24/224 revealed severe oropharyngeal dysphagia and recommended liquidized purees / thin liquids w/ use of recommended moist puree textures / thin liquids with frequent oral care and the following strategies: Cough and re-swallow after each sip, Small Bites, Multiple Swallows, Alternate bites/solids and sips/liquids, Sitting upright and Remain sitting upright for 30 minutes after PO intake. Hx of esophageal dysphagia managed by passementerie worker, Dr. Akhtar, s/p EGD w/ botox injection and esophageal dilation of esophageal stenosis 02/03/2024. He participated in OP ST for myofascial release in junction with oropharyngeal strengthening and neck ROM exercises from 08/2023- 10/2023 with improvements in swallowing, including advancing diet from purees to foods with soft, solid lumps (soups with small lumps), and improved neck ROM (L head rotation improved from 16 degrees to 37 degrees, R head rotation improved from 19 degrees to 35 degrees). He returned to ST 03/17/2024 for continued dysphagia therapy for myofascial release in junction w/ neck ROM exercises due to pt reporting sensation of decreased neck ROM and increased stiffness of neck. Diagnosis Diagnosis: SCC of mandibular alveolar ridge C41.1 Pain Is pain an issue with your current prescribed condition?: No Personal Preferred language: [place] Patient Allergies Allergies Allergies: Allergies No Known Allergies Allergy (Verified 05/13/24 11:44) Previous/Current Goals Goals 1-5 Previous Goal #1: The patient will consume least restrictive diet textures without overt s/s of aspiration with minimal verbal cues for use of compensatory strategies to decrease risk for aspiration. Goal 1 Status: Limited progress - Continued consumption of liquidized purees / thin liquids. Pt is well-aware of compensatory strategies to decrease risk for aspiration. He is completing oral care throughout his day to decrease risk for aspiration related illness. Previous Goal #2: The patient will complete neck ROM exercises in junction with myofascial release to improve and maintain neck mobility for optimal swallow functioning (X10 repetitions, 3-5X daily). Goal 2 Status: PROGRESSING - Currently, pt has neck ROM w/ left rotation at 40 degrees (improved 12 degrees since 03/19/2024 and right neck rotation at 38 degrees (improved 10 degrees from 03/19/2024). Previous Goal #3: The patient will complete an oropharyngeal exercise program in junction with myofascial release to improve and maintain optimal swallow functioning s/p chemoradiation treatment to improve and maintain strength, ROM, and coordination of swallowing mechanism (X10 repetitions, 3- 5 (more content not included)... Normal [facility] Modified Barium Swallow Stud yon 06-24-2024 Modified Barium Swallow Study [facility] Speech Pathology [address] [place] [address] Modified Barium Swallow Study MR#: [id number] Acct: [id number] Name: MY JAMA Rep #: [id number] : 1960 64 From: Latosha Boyer M.A., [facility] REGISTERED NURSE Modified Barium Swallow Patient Information Study Date: 06/24/24 Study Time: 13:00 Direct Billable Minutes: 115 Total Minutes procedure reportin Diagnosis: Floor of mouth squamous cell carcinoma C04.9 Referring Physician: Santiago Sellers Reason for Referral: Objectively assess swallow function, assess risk for aspiration, and determine recommendations for least restrictive diet textures and compensatory strategies to improve safety of swallow. Medical History: The pt is a 64-year-old male diagnosed with clinical stage NOREEN (cTx cN2b M0) p16 negative SCC of unknown primary with left neck adenopathy in level 2-[address] neck and chest (12/17/2018), ultrasound-guided FNA of the left neck mass (12/22/2018), PET scan (01/05/2019), triple endoscopy with targeted left tonsillectomy (01/30/2019). From 02/10/2019 ??? 03/25/2019 he received definitive chemoradiation therapy. 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 11/07/2021: PEG tube placement, tracheostomy, composite resection of oral cavity, excision of skin and soft tissue, segmental mandibulectomy, right selective neck dissection and left neck exploration for vessels. Reconstruction was thigh free flap and had complex neck closure with split thickness skin graft. Trach was removed following surgery on 12/05/2021 with the trach re-inserted due to difficulty breathing when lying flat. Pt has followed with OP ST during and after radiation treatment. Most recent MBSS 08/15/23 recommended moist puree textures / thin liquids with strict aspiration precautions and GI consult. Of note, he participated in myofascial release in junction with oropharyngeal strengthening and neck ROM exercises from 08/2023-10/2023 with improvements in swallowing, including advancing diet from purees to foods with soft, solid lumps (soups with small lumps), and improved neck ROM (L head rotation improved from 16 degrees to 37 degrees, R head rotation improved from 19 degrees to 35 degrees). He returned to dysphagia therapy 06/19/2024 for continued myofascial release in junction with oropharyngeal strengthening and neck ROM exercises. He is participating in this treatment 3X/week. Currently, he reports increased difficulty swallowing pills with some improvement s/p recent botox injection and dilation of esophageal stenosis by GI during EGD 02/20/24. He is planned for annual MBSS to re-assess swallow function, aspiration risk s/p chemoradiation for cancer hx above. Current Diet Ordered: Liquidized purees (some small lumps per pt) / Thin Dentition: Edentulous Mental Status: WNL Respiratory Status: Oxygenating on Room Air (Trach) Penetration-Aspiration Scale Penetration-Aspiration Scale: OBJECTIVE ASSESSMENT OF SWALLOW FUNCTION (QUANTITATIVE ??? PER TRIAL): PENETRATION / ASPIRATION SCALE (SENIOR): 1 = does not enter airway 2 = enters airway/above vocal folds/ejected 3 = enters airway/above vocal folds/not ejected 4 = enters airway/contacts vocal folds/ejected 5 = enters airway/contacts vocal folds/not ejected 6 = enters airway/below vocal folds/ejected 7 = enters airway/below vocal folds/not ejected despite effort 8 = enters airway/below vocal folds/no effort VIDEOFLOROSCOPIC SCALE SCORE (SENIOR): Grade I = aspiration of material that has penetrated into the laryngeal vestibule, intact cough reflex Grade II = aspiration < 10 % of the bolus, intact cough reflex Grade III = aspiration of < 10 % of the bolus, reduced cough reflex or aspiration of > 10 % of the bolus, intact cough reflex Grade IV = aspiration of > 10 % of the bolus, reduced cough reflex Penetration-Aspiration Scale Score Thin Liquid via teaspoon: Result: 3= enters airways/above vocal folds/not ejected Thin Liquid via sequential sips: cup: Result: 3= enters airways/above vocal folds/not ejected Oppelo Thick Liquid via small single sip: cup: Result: 3= enters airways/above vocal folds/not ejected Comment: SILENT post prandial aspiration of thin liquids from previous trial Honey Thick Liquid via small single sip: cup: Result: 3= enters airways/above vocal folds/not ejected Applesauce w/ Honey thick barium to liquidize (50/50): Result: 3= enters airways/above vocal folds/not ejected Thin Liquid via small single sip: cup: Result: 3= enters airways/above vocal folds/not ejected Thin Liquid via sequential sips: cup Trial 2: Result: 7= enters airways/below vocal folds/not ejected despite effort Comment: Cued cough and re-swallow = somewhat effective. Oral Phase Labial Seal: Escape beyond mid-chin Tongue Contro (more content not included)... Normal [facility] PET/CT Tumor Base -Thigh Sub son 05-19-2024 PET/CT Tumor Base -Thigh Subs [facility] Imaging Services [address] [place] [id number] PET/CT Tumor Base -Thigh Subs MR#: [id number] Acct: [id number] Name: MY JAMA Rep #: [id number] : 1960 M 63 From: Narendra Seay PCP: Status: REG RCR Study: PET/CT Tumor Base -Thigh Subs Date of Exam: Exam# [id number] Ordering [place]: [place] [id number] EXAMINATION: FDG PET CT HISTORY: 63-year-old male with history of head and neck carcinoma presenting for restaging examination and evaluation of pulmonary nodularity. COMPARISON EXAMINATION: Previous FDG PET CT study dated 10/11/2021, CT of the chest 05/06/2024. TECHNIQUE: Following the intravenous administration of 14.5 mCi of F-18 deoxyglucose, via the left antecubital fossa, multiplanar image acquisitions of the neck, chest, abdomen and pelvis to the level of mid thigh, obtained at one hour post radiopharmaceutical administration contemporaneously interpreted with the current CT of the neck, chest, abdomen and pelvis to the level of mid thigh, dated 05/19/2024 via coregistration and previous FDG PET CT study dated 10/11/2021 reveals: BLOOD GLUCOSE LEVEL:?121 mg/dL?HEIGHT:?65 inches?WEIGHT: 121 lbs. FINDINGS: Head/Neck: There is no evidence of abnormal increased glucose metabolism in the pharyngeal mucosal space, parapharyngeal space, bilateral-lateral and anterior neck, hypopharynx and distribution of the larynx. Asymmetric muscle tension artifact is noted in the left posterior occipital neck region. The visualized portion of the cerebral cortical-subcortical structures demonstrate symmetric and preserved glucose metabolism. CHEST: A single nodular focus of increased uptake is noted in the left axilla generating a calculated standard uptake value of 3.4. The corresponding soft tissue density demonstrates fatty hilus formation. Pertinent chest CT findings are as follows. Coronary arterial calcification is defined. Additional subcentimeter bilateral axillary soft tissue densities are nonglucose avid. Mediastinal soft tissue demonstrates no increased glucose concentration. The parenchymal changes noted on CT of the chest dated 05/06/2024 are not apparent on the current examination. There is evidence of tracheostomy tube placement. Abdomen/Pelvis: Normal physiologic uptake is noted in the hepatic (2.2) and splenic parenchyma. There is symmetric demonstration of the right and left kidneys, normal uptake in the urinary bladder and visualized intestinal tract. Review of CT of the abdomen and pelvis reveals the following. Atherosclerotic calcification is defined in the abdominal aorta without evidence of aneurysm. Pelvic arterial calcification is defined. Wall thickening of the anterior midline is nonglucose avid. Calcified phlebolith is noted in the left hemipelvis. Right and left inguinal soft tissue densities are ametabolic. SKELETAL: A thoracic scoliosis is defined. Degenerative changes noted in the axial skeleton reveal no evidence of increased tracer uptake. PET/PET/CT Tumor Base -Thigh Subs IMPRESSION: 1. NEGATIVE EXAMINATION. There is no definitive quantitative scintigraphic evidence of recurrent/viable neoplasm. 2. Enhanced tracer concentration defined in the left axilla associated with fatty hilus formation is consistent with a low likelihood of viable neoplasia. 3. Meticulous attention paid to the right lower anterior lung field reveals no evidence of anatomic or metabolic change. 4. Overall compared to the FDG PET CT study dated 10/11/2021, there is current absence of defined viable neoplastic disease. Electronic Signature Narendra Weathers D.O. Accurate Quantification of SUVs for this report are calculated using the exclusive [employer] Technology. (U.S. Patent No. [phone] [phone] B2 [phone] [place] patent [id number] [id number] [id number]). Standardization and correction of the FDG SUV metric via [employer] technology allow for vendor non-specific objective quantitative examination comparison and optimization of the sensitivity and specificity of the FDG PET-CT examination. . [email or web address] Electronically Signed: Narendra Weathers DO at 9:51 EDT , CC: Dr. Quincy Simpson MD Wood Router Hand: Signed Normal [facility] CBC W/Diff, Automatedon 08- Absolute Lymph 1.76 X10 3/uL Normal 0.83-4.51 [facility] Comment on above: Performed By: #### L 100.0100, L501.9520, L506.0400, L500.4050 #### [facility] [address] [place], [address] Absolute Neut 5.0 X10 3/uL Normal 2.0-7.7 [facility] Comment on above: Performed By: #### L 100.0100, L501.9520, L506.0400, L500.4050 #### [facility] [address] [place], [address] Basophils/100 WBC (Bld) 0.4 % Normal 0-1 [facility] Comment on above: Performed By: #### L 100.0100, L501.9520, L506.0400, L500.4050 #### [facility] [address] [place], [address] Eosinophils/100 WBC (Bld) 0.5 % Normal 0-5 [facility] Comment on above: Performed By: #### L 100.0100, L501.9520, L506.0400, L500.4050 #### [facility] [address] [place], [address] Erythrocyte distribution width (RBC) [Ratio] 13.2 % Normal 11.6-14.6 [facility] Comment on above: Performed By: #### L 100.0100, L501.9520, L506.0400, L500.4050 #### [facility] [address] [place], [address] Hematocrit (Bld) [Volume fraction] 44.3 % Normal 40-54 [facility] Comment on above: Performed By: #### L 100.0100, L501.9520, L506.0400, L500.4050 #### [facility] [address] [place], [address] Hemoglobin (Bld) [Mass/Vol] 14.6 g/dL Normal 13.0-16.5 [facility] Comment on above: Performed By: #### L 100.0100, L501.9520, L506.0400, L500.4050 #### [facility] [address] [place], [address] IG% 0.400 Normal 0.0-0.9 [facility] Comment on above: Result Comment: IG% - Immature Granulocytes (promyelocytes, myelocytes and metamyelocytes) > 1% indicates that a LEFT SHIFT is Present. Performed By: #### L 100.0100, L501.9520, L506.0400, L500.4050 #### [facility] [address] [place], [address] Lymphocytes/100 WBC (Bld) 23.6 % Normal 19-41 [facility] Comment on above: Performed By: #### L 100.0100, L501.9520, L506.0400, L500.4050 #### [facility] [address] [place], [address] MCH (RBC) [Entitic mass] 30.2 pg Normal 27.0-32.0 [facility] Comment on above: Performed By: #### L 100.0100, L501.9520, L506.0400, L500.4050 #### [facility] [address] [place], [address] MCHC (RBC) [Mass/Vol] 33.0 g/dL Normal 32-36 [facility] Comment on above: Performed By: #### L 100.0100, L501.9520, L506.0400, L500.4050 #### [facility] [address] [place], [address] MCV (RBC) [Entitic vol] 91.7 fL Normal 80-94 [facility] Comment on above: Performed By: #### L 100.0100, L501.9520, L506.0400, L500.4050 #### [facility] [address] [place], [address] Monocytes/100 WBC (Bld) 8.2 % Normal 0-10 [facility] Comment on above: Performed By: #### L 100.0100, L501.9520, L506.0400, L500.4050 #### [facility] [address] [place], [address] Neutrophils/100 WBC (Bld) 66.9 % Normal 47-70 [facility] Comment on above: Performed By: #### L 100.0100, L501.9520, L506.0400, L500.4050 #### [facility] [address] [place], [address] Nucleated RBC (Bld) [#/Vol] 0 10*3/uL Normal 0-5 [facility] Comment on above: Performed By: #### L 100.0100, L501.9520, L506.0400, L500.4050 #### [facility] [address] [place], [address] Platelet mean volume (Bld) [Entitic vol] 9.8 fL Normal 6.2-12.0 [facility] Comment on above: Performed By: #### L 100.0100, L501.9520, L506.0400, L500.4050 #### [facility] [address] [place], [address] Platelets (Bld) [#/Vol] 339 10*3/uL Normal 150-450 [facility] Comment on above: Performed By: #### L 100.0100, L501.9520, L506.0400, L500.4050 #### [facility] [address] [place], [address] RBC (Bld) [#/Vol] 4.83 10*6/uL Normal 4.6-6.2 [facility] Comment on above: Performed By: #### L 100.0100, L501.9520, L506.0400, L500.4050 #### [facility] [address] [place], [address] RDW SD 44.9 fl High 35.1-43.9 [facility] Comment on above: Performed By: #### L 100.0100, L501.9520, L506.0400, L500.4050 #### [facility] [address] [place], [address] WBC (Bld) [#/Vol] 7.5 10*3/uL Normal 4.4-11.0 [facility] Comment on above: Performed By: #### L 100.0100, L501.9520, L506.0400, L500.4050 #### [facility] [address] [place], [address] Comprehensive Metabolic Prof inon 05-13-2024 Albumin [Mass/Vol] 3.3 g/dL Normal 3.2-5.0 [facility] Comment on above: Performed By: #### L 100.0100, L501.9520, L506.0400, L500.4050 #### [facility] [address] [place], [address] Albumin/Globulin [Mass ratio] 0.7 {ratio} Low 0.9-2.4 [facility] Comment on above: Performed By: #### L 100.0100, L501.9520, L506.0400, L500.4050 #### [facility] [address] [place], [address] ALK P 92 U/L Normal 45-117 [facility] Comment on above: Performed By: #### L 100.0100, L501.9520, L506.0400, L500.4050 #### [facility] [address] [place], [address] ALT [Catalytic activity/Vol] 20 U/L Normal 16-61 [facility] Comment on above: Performed By: #### L 100.0100, L501.9520, L506.0400, L500.4050 #### [facility] [address] [place], [address] AST [Catalytic activity/Vol] 20 U/L Normal 15-37 [facility] Comment on above: Performed By: #### L 100.0100, L501.9520, L506.0400, L500.4050 #### [facility] [address] [place], [address] Bilirubin [Mass/Vol] 0.40 mg/dL Normal 0.20-1.00 [facility] Comment on above: Result Comment: For patients on eltrombopag therapy, use of Dimension [place] TBIL is not recommended. Performed By: #### L 100.0100, L501.9520, L506.0400, L500.4050 #### [facility] [address] [place], [address] BUN/CRE 21.5 RATIO High 10-20 [facility] Comment on above: Performed By: #### L 100.0100, L501.9520, L506.0400, L500.4050 #### [facility] [address] [place], [address] CA,Total 9.4 mg/dL Normal 8.5-10.1 [facility] Comment on above: Performed By: #### L 100.0100, L501.9520, L506.0400, L500.4050 #### [facility] [address] [place], [address] Chloride [Moles/Vol] 102 mmol/L Normal 98-107 [facility] Comment on above: Performed By: #### L 100.0100, L501.9520, L506.0400, L500.4050 #### [facility] [address] [place], [address] CO2 [Moles/Vol] 31.0 mmol/L Normal 21.0-32.0 [facility] Comment on above: Performed By: #### L 100.0100, L501.9520, L506.0400, L500.4050 #### [facility] [address] [place], [address] Creatinine [Mass/Vol] 0.46 mg/dL Low 0.70-1.30 [facility] Comment on above: Result Comment: The validity of the calculated GFR GFRAA in patients over 70 years has not been determined. Clinical correlation is essential. Performed By: #### L 100.0100, L501.9520, L506.0400, L500.4050 #### [facility] [address] [place], [address] ECRCL 141.87 ml/min Normal [facility] Comment on above: Performed By: #### L 100.0100, L501.9520, L506.0400, L500.4050 #### [facility] [address] [place], [address] EST GFR - AA 236 mL/min Normal >60 [facility] Comment on above: Result Comment: Afri can [place]amese GFR Calc Performed By: #### L 100.0100, L501.9520, L506.0400, L500.4050 #### [facility] [address] [place], [address] GAP 3 Low 5-15 [facility] Comment on above: Performed By: #### L 100.0100, L501.9520, L506.0400, L500.4050 #### [facility] [address] [place], [address] GFR/1.73 sq M.predicted among non-blacks MDRD (S/P/Bld) [Vol rate/Area] 195 mL/min/{1.73_m2} Normal >60 [facility] Comment on above: Result Comment: Non- GFR Calc Performed By: #### L 100.0100, L501.9520, L506.0400, L500.4050 #### [facility] [address] [place], [address] Globulin (S) [Mass/Vol] 4.8 g/dL High 2.2-4.2 [facility] Comment on above: Performed By: #### L 100.0100, L501.9520, L506.0400, L500.4050 #### [facility] [address] [place], [address] Glucose [Mass/Vol] 110 mg/dL High 74-106 [facility] Comment on above: Result Comment: Fast ing Glucose result from 100 to 125 mg/dL suggests IMPAIRED HOMEOSTASIS per A.D.A. criteria. Performed By: #### L 100.0100, L501.9520, L506.0400, L500.4050 #### [facility] [address] [place], [address] Potassium [Moles/Vol] 3.9 mmol/L Normal 3.5-5.1 [facility] Comment on above: Performed By: #### L 100.0100, L501.9520, L506.0400, L500.4050 #### [facility] [address] [place], [address] Sodium [Moles/Vol] 136 mmol/L Normal 136-145 [facility] Comment on above: Performed By: #### L 100.0100, L501.9520, L506.0400, L500.4050 #### [facility] [address] [place], [address] T PROT 8.1 g/dL Normal 6.4-8.2 [facility] Comment on above: Performed By: #### L 100.0100, L501.9520, L506.0400, L500.4050 #### [facility] [address] [place], [address] Urea nitrogen [Mass/Vol] 10 mg/dL Normal 7-18 [facility] Comment on above: Performed By: #### L 100.0100, L501.9520, L506.0400, L500.4050 #### [facility] [address] [place], [address] Oncology Visit Reporton 04-24 Oncology Visit Report [facility] [address] [place] [address] OFFICE VISIT Date of Service: 05/13/24 1141 MR#: [id number] Acct: [id number] Name: MY JAMA Rep #: [id number] : 1960 From: Quincy Simpson MD Age/Sex: 63/M [place] [facility] Status: Signed HPI Subjective Date of Service 05/13/24 Chief Complaint Recurrent head and neck cancer follow-up History of Present Illness 62-year-old male Ex-smoker and heavy alcohol user who presented with a painless left neck mass that progressively increased in size over the course of the past couple of months. December 17, 2018 CT soft tissues of the neck: FINDINGS: There is a rim-enhancing centrally cystic mass distal to the angle the mandible, lateral to the hyoid cartilage, along the anterior margin of the sternocleidomastoid muscle. Wall thickness up to 4.9 mm. Process measures approximately 1.8 cm craniocaudal, 1.8 cm transverse, 2.9 cm anterior-posterior. Posteriorly and deep to the sternomastoid muscle, single mildly enlarged lymph node measuring 1.2 x 1.6 cm. A few additional shotty lymph nodes are present on the left. Normal thyroid. Normal submandibular glands and parotid glands. There is no right cervical lymphadenopathy. Pharyngeal and laryngeal soft tissues appear normal. Multilevel cervical spondylosis with disc disease most notable at C5-C6 with uncovertebral joint hypertrophy contributing to mild foraminal narrowing. Mucoperiosteal thickening and mucous retention cysts of the maxillary sinuses. Solitary opacified posterior right ethmoid sinus. Mastoid air cells and middle ear cavities clear. 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 December 17, 2018 CT chest: FINDINGS: Supraclavicular: No acute process within the xrhas-er-oabm. Body wall soft tissues: No acute process. Upper abdomen: No acute process. Osseous structures: No acute process. Mild scoliosis, moderate kyphosis, mild multilevel thoracic spondylosis. Mediastinum: No acute process. Cardiovascular: No acute process. Lungs: A few small scattered pulmonary nodules are present. The largest is in the right upper lobe anterior segment, series 6 image 73, 5 cm, solid features, smooth margins. Unremarkable airways. IMPRESSION: No acute thoracic process is evident. Small pulmonary nodules. The largest measures approximately 5 mm. Follow-up low-dose CT chest is recommended in 1 year for pulmonary nodule surveillance purposes. December 22, 2018 DIAGNOSIS CYTOLOGY A. 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 See comment. B. 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 ANTIBODY / CLONE RESULT Block A AE1-3 (AE1/AE3/PCK26) positive CK7 (OV-TL12/30) negative CK8 (53pdbqL46) positive, weak CK20 (KS20.8) negative TTF-1 (8G7G3/1) negative Napsin A (Rabbit Polyclonal) negative HepPar (OCh1E5) negative RCC (PN-15) negative PSAP (PASE/4LJ) negative CK5-6 (D5 1684) positive P16 (E6H4) negative P40 (BC28) positive, focal January 02, 2019: Patient was evaluated by ENT : oral and oropharyngeal mucosa were normal. Flexible laryngoscopy was performed which demonstrated no evidence of lesion. Small cystic lesion of the uvula was felt to be benign. January 05, 2019 PET/CT: IMPRESSION: 1. ABNORMAL EXAMINATION INDICATIVE OF MALIGNANT-VIABLE NEOPLASM. 2. Increased glucose concentration observed in the left lateral neck fulfills quantitative criteria for viable neoplasm. 3. Asymmetric enhanced FDG distribution noted in the left pharyngeal mucosal space may be further investigated with rigorous clinical examination. 4. No other quantitatively significant hypermetabolic abnormalities are noted. There is no definitive scintigraphic evidence of distant metastatic disease. January 30, 2019: left tonsil excision and uvula excision. Pathology displayed no evidence of malignancy or high-grade squamous dysplasia. There was noted to be submucosal dilated minor salivary gland duct with oncocytic metaplasia in the uvula. In preparation for locoregional combined chemoradiation patient Patient underwent multiple dental extractions, placement of PEG tube and port. February 10 through March 25, 2019 combined modality therapy (see below for details) May 13, 2019: CT chest: Comparison is made with prior study in December 17, 2018 There is persistent multifocal nodular pleural thickening or tiny pleural-based nodules in the lower lobes which are unchanged in size or number since previous study. The dominant nodule in the right lower lobe is not changed appreciably in size since prior exam June (more content not included)... Normal [facility] T4 Free Directon 05-13-2024 T4 FREE DIRECT 1.18 ng/dL Normal 0.76-1.46 [facility] Comment on above: Performed By: #### L 100.0100, L501.9520, L506.0400, L500.4050 ####[facility] [address] [place], [address] Thyroid Stim Hormone (TSH)on 05-13-2024 TSH 2.570 uIU/mL Normal 0.358-3.74 0 [facility] Comment on above: Performed By: #### L 100.0100, L501.9520, L506.0400, L500.4050 #### [facility] [address] [place], [address] CREATININE FINGERSTICKon CREATININE WB < 1.0 Normal 0.70-1.30 [facility] Comment on above: Performed By: #### L 9100.0200 ####[facility] [address] [place], [address] EGFR WB > 60.0000 Normal >60 [facility] Comment on above: Performed By: #### L 9100.0200 ####[facility] [address] 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 F/U HEAD AND NECK CANCER -- IV CONTRAST ONLY RADIATION DOSAGE (If Supplied By Facility): CTDIvol = ( 7.63 ) mGy, DLP = ( 642.99 ) mGycm TECHNIQUE: Transaxial imaging was performed following intravenous administration of IV 100mL Isovue-370. Multiplanar coronal and sagittal images were reformatted. Individualized dose optimization techniques were used for this CT. COMPARISON: Comparison is made with prior study dated July 29, 2023. FINDINGS: CHEST A tracheostomy tube is seen. It is unchanged. Once again, there is evidence of interstitial scarring in the lung apices more prominent in the right lung apex and along the anterior aspect of both lung apices. Stable 5.4 mm noncalcified nodule in the peripheral aspect of the right upper lobe as seen on axial image #76. Mild scarring along the posterior medial aspect of the right upper lobe as well as in the superior segment of the left lower lobe. There is a new 1.9 cm x 1.7 cm irregular area of heterogeneous density with the soft tissue and cystic spaces in the anterior segment of the right lower lobe. This may represent a focal area of scarring although correlation with a PET scan is recommended. Mild surrounding bronchiectasis. There is no demonstrated pleural abnormality. Normal heart and pericardium. Normal mediastinum. Normal hilar regions. Normal unenhanced pulmonary arteries. Normal aorta arch and descending thoracic aorta. There are multi-level degenerative changes of the thoracic spine. CT/Chest WITH Contrast IMPRESSION: Stable position of the tracheostomy tube. New heterogeneous area of density in the anterior segment of the right lower lobe as described. Correlation with a PET scan is recommended. Electronically Signed: Bib Reeves MD at 15:44 EDT , CC: YARI Santiago; Dr. Quincy Simpson MD Wood Router Hand: Signed Normal [facility] Soft Tissue Neck WITH Contra ston 05-06-2024 Soft Tissue Neck WITH Contrast [facility] [address] [place] [address] Soft Tissue Neck WITH Contrast MR#: [id number] Acct: [id number] Name: MY JAMA Rep #: [id number] : 1960 M 63 From: Bib ghosh MD PCP: YARI Santillan Status: REG CLI Study: Soft Tissue Neck WITH Contrast Date of Exam: 0 05/06/24 Exam# [id number] Ordering Dr: [place] [id number] STUDY: CT SOFT TISSUE NECK WITH CONTRAST REASON FOR EXAM: Male, 63 years old. F/U HEAD AND NECK CANCER -- IV CONTRAST ONLY RADIATION DOSAGE (If Supplied By Facility): CTDIvol = ( 7.63 ) mGy, DLP = ( 642.99 ) mGycm TECHNIQUE: The patient was scanned in a multi-detector CT scanner. High resolution transaxial imaging was performed following intravenous administration of IV 100mL Isovue-370. Sagittal and coronal images were reconstructed. Individualized dose optimization techniques were used for this CT. COMPARISON: Comparison is made with prior study dated July 29, 2023. FINDINGS: A tracheostomy tube is in situ. Once again, the patient is status post screw and plate fixation of the mandible. Stable increased markings in the subcutaneous tissues overlying the lower face. Normal bilateral parotid glands. Normal bilateral wireless sales associate spaces. Normal bilateral parapharyngeal spaces. Normal bilateral carotid spaces. Normal bilateral sublingual and submandibular glands and spaces. Normal visualized nasopharynx. Normal retropharyngeal space. Normal perivertebral space. Normal visualized bilateral faucial tonsils. The visualized tongue, tongue base and oropharynx are normal. The visualized cervical lymph nodes (levels I-) are within normal size limits, and maintain normal morphology. There is no demonstrated solid or cystic mass lesion. There is no abnormal contrast enhancement. Normal epiglottis, bilateral vallecula and hypopharynx. The pre-epiglottic and paraglottic adipose spaces are normal. Normal visualized bilateral piriform sinuses, aryepiglottic folds, vocal cords, and arytenoid-cricoid articulations. Normal subglottic trachea. Normal bilateral lobes of the thyroid gland. Normal visualized pulmonary apices. Mucosal retention cyst or polyps at the base of the maxillary sinuses slightly worse on the left side. Mucosal thickening of the posterior aspect of the right ethmoid sinus. There is multilevel degenerative changes of the cervical spine. CT/Soft Tissue Neck WITH Contrast IMPRESSION: Stable examination. Electronically Signed: Bib Reeves MD at 10:16 EDT , CC: YARI Santiago; Dr. Quincy Simpson MD Wood Router Hand: Signed [facility] XR CHEST 2 VIEWSon 3 XR CHEST 2 VIEWS Interpreted By: Asa Macdonald, STUDY: XR CHEST 2 VIEWS INDICATION: Signs/Symptoms:cancer surveillance, aspiration. COMPARISON: November 13, 2021 ACCESSION NUMBER(S): [id number] ORDERING CLINICIAN: RACHEL BROOKS FINDINGS: No consolidation, effusion, edema, or pneumothorax. Tracheostomy tube again noted. IMPRESSION: No evidence of acute intrathoracic abnormality. Signed by: Asa Joshi 09/05/2023 1:51 PM Dictation workstation: [id number] [facility] Basophil percentageOrdered B y: Quincy Simpson on 07-29-2023 Basophil percentage < 0.9 mg/dL 0.70-1.30 [facility] No Panel InformationOrdered By: Quincy Simpson on 07-29-2023 Bedside Estimated GFR (eGFR) > 60.0000 mL/min >60 [facility] CBC, PLATELETS & AUT DIFF ([phone])Ordered By: Chemical Dependency Professional on 07-22-2023 Basophils (Bld) [#/Vol] 0.0 10*3/uL Normal 0.0-0.2 [facility]; [facility] Work Phone: Basophils/100 WBC (Bld) 0 % Normal [facility]; [facility] Work Phone: Eosinophils (Bld) [#/Vol] 0.0 10*3/uL Normal 0.0-0.4 [facility]; [facility] Work Phone: Eosinophils/100 WBC (Bld) 1 % Normal [facility]; [facility] Work Phone: Erythrocyte distribution width (RBC) [Ratio] 13.5 % Normal 11.6-15.4 [facility]; [facility] Work Phone: Hematocrit (Bld) [Volume fraction] 39.4 % Normal 37.5-51.0 [facility]; [facility] Work Phone: Hemoglobin (Bld) [Mass/Vol] 13.2 g/dL Normal 13.0-17.7 [facility]; [facility] Work Phone: Immature granulocytes (Bld) [#/Vol] 0.0 10*3/uL Normal 0.0-0.1 [facility]; [facility] Work Phone: Immature granulocytes/100 WBC (Bld) 1 % Normal [facility]; [facility] Work Phone: Lymphocytes (Bld) [#/Vol] 1.2 10*3/uL Normal 0.7-3.1 [facility]; [facility] Work Phone: Lymphocytes/100 WBC (Bld) 20 % Normal [facility]; [facility] Work Phone: MCH (RBC) [Entitic mass] 30.8 pg Normal 26.6-33.0 [facility]; [facility] Work Phone: MCHC (RBC) [Mass/Vol] 33.5 g/dL Normal 31.5-35.7 [facility]; [facility] Work Phone: MCV (RBC) [Entitic vol] 92 fL Normal 79-97 [facility]; [facility] Work Phone: Monocytes (Bld) [#/Vol] 0.5 10*3/uL Normal 0.1-0.9 [facility]; [facility] Work Phone: Monocytes/100 WBC (Bld) 8 % Normal [facility]; [facility] Work Phone: Neutrophils (Bld) [#/Vol] 4.2 10*3/uL Normal 1.4-7.0 [facility]; [facility] Work Phone: Neutrophils/100 WBC (Bld) 70 % Normal [facility]; [facility] Work Phone: Platelets (Bld) [#/Vol] 284 10*3/uL Normal 150-450 [facility]; [facility] Work Phone: RBC (Bld) [#/Vol] 4.29 10*6/uL Normal 4.14-5.80 [facility]; [facility] Work Phone: WBC (Bld) [#/Vol] 6.0 10*3/uL Normal 3.4-10.8 [facility]; [facility] Work Phone: METABOLIC PANEL, COMPREHENSI VE ([id number])Ordered By: Chemical Dependency Professional on 07-22-2023 Albumin [Mass/Vol] 4.2 g/dL Normal 3.9-4.9 [facility]; [facility] Work Phone: Albumin/Globulin [Mass ratio] 1.4 {ratio} Normal 1.2-2.2 [facility]; [facility] Work Phone: ALP [Catalytic activity/Vol] 103 U/L Normal 44-121 [facility]; [facility] Work Phone: ALT [Catalytic activity/Vol] 15 U/L Normal 0-44 [facility]; [facility] Work Phone: AST [Catalytic activity/Vol] 20 U/L Normal 0-40 [facility]; [facility] Work Phone: Bilirubin [Mass/Vol] 0.4 mg/dL Normal 0.0-1.2 [facility]; [facility] Work Phone: Calcium [Mass/Vol] 9.4 mg/dL Normal 8.6-10.2 [facility] [facility] Internal Medicine; [facility] Work Phone: Chloride [Moles/Vol] 101 mmol/L Normal 96-106 [facility] Internal Medicine; [facility] Internal Medicine Work Phone: CO2 [Moles/Vol] 26 mmol/L Normal 20-29 [facility] Internal Medicine; [facility] Work Phone: Creatinine [Mass/Vol] 0.49 mg/dL Abnormal 0.76-1.27 [facility] Internal Medicine; [facility] Internal Medicine Work Phone: Globulin (S) [Mass/Vol] 2.9 g/dL Normal 1.5-4.5 [facility] Internal Medicine; [facility] Internal Medicine Work Phone: Glucose [Mass/Vol] 108 mg/dL Abnormal 70-99 [facility] Internal Medicine; [facility] Internal Medicine Work Phone: Potassium [Moles/Vol] 4.4 mmol/L Normal 3.5-5.2 [facility] Internal Medicine; [facility] Internal Medicine Work Phone: Protein [Mass/Vol] 7.1 g/dL Normal 6.0-8.5 [facility] Internal Medicine; [facility] Internal Medicine Work Phone: Sodium [Moles/Vol] 140 mmol/L Normal 134-144 [facility] Internal Medicine; [facility] Internal Medicine Work Phone: Urea nitrogen [Mass/Vol] 14 mg/dL Normal 8-27 [facility] Internal Medicine; [facility] Internal Medicine Work Phone: Urea nitrogen/Creatinine [Mass ratio] 29 mg/mg Abnormal 07-16 [facility]; [facility] Work Phone: METABOLIC PANEL, COMPREHENSIVE ([id number]) 117 mL/min/1.73 Normal [facility]; [facility] Work Phone: THYROXINE FREE ([id number])Ordere d By: Chemical Dependency Professional on 07-22-2023 Free T4 [Mass/Vol] 1.44 ng/dL Normal 0.82-1.77 [facility]; [facility] Work Phone: TSH (THYROID STIMULATING HOR NIK) ([id number])Ordered By: Chemical Dependency Professional on 07-22-2023 TSH Qn 2.430 {uIU/mL} Normal 0.450-4.50 0 [facility]; [facility] Work Phone: Office Visit (Audiology)on 0 04-25-2023 Follow-up visit Diagnoses/Problems Bilateral sensorineural hearing loss (389.18) (H90.3) Patient Discussion/Summary We scheduled a follow-up appointment in 6 months. Appointment time today 4:00 - 4:30. Chief Complaint Hearing aid check. 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) Open wound of chin (873.44) (S01.80XA) Open wound of neck, subsequent encounter (V58.89,874.8) (S11.90XD) Oropharyngeal dysphagia (787.22) (R13.12) Pre-op exam (V72.84) (Z01.818) Status post tracheostomy (V44.0) (Z93.0) 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) Xerostomia (527.7) (K11.7) Past Medical History History of COVID-19 vaccination not done (V64.00) (Z28.9) No pertinent past medical history (V49.89) (Z78.9) Surgical History Denied: No history of surgery Family History Family history of cerebrovascular accident (CVA) (V17.1) (Z82.3) Social History Caffeine use (V49.89) (Z78.9) Employed Former smoker (V15.82) (Z87.891) Lives with family No alcohol use Allergies No Known Drug Allergies Recorded By: Christine Boucher; 01/19/2019 9:58:46 AM Current Meds Medication NameInstruction Albuterol Sulfate 1.25 MG/3ML Inhalation Nebulization Solution amLODIPine Besylate 5 MG Oral Tablet Folic Acid 400 MCG Oral Tablet Levothyroxine Sodium 100 MCG Oral Tablettake 1 tablet by mouth once daily oxyCODONE HCl - 5 MG Oral TabletTake one tablet twice/day as needed for pain. Pentoxifylline ER 400 MG Oral Tablet Extended Release Pilocarpine HCl - 5 MG Oral Tablettake 1 tablet by mouth three times a day for XEROSTOMIA RA Natural Vitamin E 268 MG (400 UNIT) Oral CapsuleTAKE 1 CAPSULE BY MOUTH EVERY DAY Santyl 250 UNIT/GM External Ointment Sodium Chloride 1 GM Oral Tablet SSD 1 % External Cream TH Vitamin C TABS Vitamin E 450 MG (1000 UT) Oral Capsule Procedure Patient is doing very well with his hearing aids. No problems reported. He reports very good improvement in speech understanding. He does not want any programming changes at this point. Signatures Electronically signed by : Segundo Chamorro M.A.; Apr 25 2023 4:16PM EST (Author) Normal [facility] Office Visit (Audiology)on 04-04-2023 Follow-up visit Diagnoses/Problems Bilateral sensorineural hearing loss (389.18) (H90.3) Patient Discussion/Summary We scheduled a 2 week follow-up visit. Appointment time today 11:00 - 11:30. Chief Complaint Hearing aid fitting. 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) Open wound of chin (873.44) (S01.80XA) Open wound of neck, subsequent encounter (V58.89,874.8) (S11.90XD) Oropharyngeal dysphagia (787.22) (R13.12) Pre-op exam (V72.84) (Z01.818) Status post tracheostomy (V44.0) (Z93.0) 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) Xerostomia (527.7) (K11.7) Past Medical History History of COVID-19 vaccination not done (V64.00) (Z28.9) No pertinent past medical history (V49.89) (Z78.9) Surgical History Denied: No history of surgery Family History Family history of cerebrovascular accident (CVA) (V17.1) (Z82.3) Social History Caffeine use (V49.89) (Z78.9) Employed Former smoker (V15.82) (Z87.891) Lives with family No alcohol use Allergies No Known Drug Allergies Recorded By: Christine Boucher; 01/19/2019 9:58:46 AM Current Meds Medication NameInstruction Albuterol Sulfate 1.25 MG/3ML Inhalation Nebulization Solution amLODIPine Besylate 5 MG Oral Tablet Folic Acid 400 MCG Oral Tablet Levothyroxine Sodium 100 MCG Oral Tablettake 1 tablet by mouth once daily oxyCODONE HCl - 5 MG Oral TabletTake one tablet twice/day as needed for pain. Pentoxifylline ER 400 MG Oral Tablet Extended Release Pilocarpine HCl - 5 MG Oral Tablettake 1 tablet by mouth three times a day for XEROSTOMIA RA Natural Vitamin E 268 MG (400 UNIT) Oral CapsuleTAKE 1 CAPSULE BY MOUTH EVERY DAY Santyl 250 UNIT/GM External Ointment Sodium Chloride 1 GM Oral Tablet SSD 1 % External Cream TH Vitamin C TABS Vitamin E 450 MG (1000 UT) Oral Capsule Procedure Fit patient with binaural Phonak Audeo L50-R hearing aids. Patient pleased with sound quality with gain set at 100% of target. With practice patient could insert aids well Signatures Electronically signed by : Segundo Chamorro M.A.; Apr 04 2023 11:39AM EST (Author) Normal [facility] Anaerobic cultureOrdered By: Joya Galvez on 04-03-2023 Bacteria identified Anaer cx Nom (Unsp spec) No anaerobic bacteria isolated. [facility] Gram stain for investigation of transfusion reactionOrdered By: Joya Galvze on 04-03-2023 Microscopic observation Gram stain Nom (Unsp spec) [facility] Routine wound cultureOrdered By: Joya Galvez on 04-03-2023 Bacteria identified Cx Nom (Wound) No growth aerobically. [facility] Office Visit (Audiology)on 0 03-14-2023 Follow-up visit Diagnoses/Problems Bilateral sensorineural hearing loss (389.18) (H90.3) Patient Discussion/Summary Will see patient back in 2 weeks for the hearing aid fitting. Appointment time today 1:00 - 2:00. Chief Complaint Hearing aid evaluation. 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) Open wound of chin (873.44) (S01.80XA) Open wound of neck, subsequent encounter (V58.89,874.8) (S11.90XD) Oropharyngeal dysphagia (787.22) (R13.12) Pre-op exam (V72.84) (Z01.818) Status post tracheostomy (V44.0) (Z93.0) 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) Xerostomia (527.7) (K11.7) Past Medical History History of COVID-19 vaccination not done (V64.00) (Z28.9) No pertinent past medical history (V49.89) (Z78.9) Surgical History Denied: No history of surgery Family History Family history of cerebrovascular accident (CVA) (V17.1) (Z82.3) Social History Caffeine use (V4.89) (Z78.9) Employed Former smoker (V15.82) (Z87.891) Lives with family No alcohol use Allergies No Known Drug Allergies Recorded By: Christine Boucher; 01/19/2019 9:58:46 AM Current Meds Medication NameInstruction Albuterol Sulfate 1.25 MG/3ML Inhalation Nebulization Solution amLODIPine Besylate 5 MG Oral Tablet Folic Acid 400 MCG Oral Tablet Levothyroxine Sodium 100 MCG Oral Tablettake 1 tablet by mouth once daily oxyCODONE HCl - 5 MG Oral TabletTake one tablet twice/day as needed for pain. Pentoxifylline ER 400 MG Oral Tablet Extended Release Pilocarpine HCl - 5 MG Oral Tablettake 1 tablet by mouth three times a day for XEROSTOMIA RA Natural Vitamin E 268 MG (400 UNIT) Oral CapsuleTAKE 1 CAPSULE BY MOUTH EVERY DAY Santyl 250 UNIT/GM External Ointment Sodium Chloride 1 GM Oral Tablet SSD 1 % External Cream TH Vitamin C TABS Vitamin E 450 MG (1000 UT) Oral Capsule Procedure Reviewed problem areas patient is having and discussed hearing aid pricing and styles. Will order binaural Phonak Audeo L50-R hearing aids in color P5 with size 2 M receivers. Will use the small vented domes. 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 Sensorineural hearing loss is noted and it is recommended to avoid loud noise without ear protection, avoid excessive dietary salt, and caffeine especially if tinnitus is noted. A yearly follow-up is advised but they should contact the office if sudden hearing loss develops, tinnitus increases, or if acute vertigo develops. After discussing the hearing test results, this patient is a candidate for amplification of hearing. The limiting factor in success is the ability to discriminate words and is discussed. All questions were answered fully and arrangements can be made with the audiology staff for this process if motivated to pursue it. This patient is followed by other providers who have been involved with his cancer therapy and surgery which will continue. He should be in contact with those providers if he has any difficulties related to his cancer or cancer therapy. Chief Complaint Visit For: Other Hearing loss after chemo. History of Present IllnessThis 62-year-old gentleman is being seen today for an evaluation into difficulties with hearing. He status post resection of a tonsillar cancer cancer along with neck dissection and free flap reconstruction has a chronic trach that is capped during the day opened at night to improve his nighttime breathing. He is followed by Dr. Brooks here at as well as other doctors in his home in [place]. He has had routine follow-ups on his cancer with no recurrence to date. He has had progressive hearing loss that may have been influenced by chemotherapy. He has completed all of his therapy at this point and is now on cancer surveillance exams. He has had no ear pain or drainage. Unfortunately there are no old hearing test to review. 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) Xerostomia (527.7) (K11.7) Past Medical History History of COVID-19 vaccination not done (V64.00) (Z28.9) No pertinent past medical history (V49.89) (Z78.9) Surgical History Denied: No history of surgery Family History Family history of cerebrovascular accident (CVA) (V17.1) (Z82.3) Social History Caffeine use (V49.89) (Z78.9) Employed Former smoker (V15.82) (Z87.891) Lives with family No alcohol use Allergies No Known Drug Allergies Recorded By: Christine Boucher; 01/19/2019 9:58:46 AM Current Meds Medication NameInstruction Albuterol Sulfate 1.25 MG/3ML Inhalation Nebulization Solution amLODIPine Besylate 5 MG Oral Tablet Folic Acid 400 MCG Oral Tablet Levothyroxine Sodium 100 MCG Oral Tablettake 1 tablet by mouth once daily oxyCODONE HCl - 5 MG Oral TabletTake one tablet twice/day as needed for pain. Pentoxifylline ER 400 MG Oral Tablet Extended Release Pilocarpine HCl - 5 MG Oral Tablettake 1 tablet by mouth three times a day for XEROSTOMIA RA Natural Vitamin E 268 MG (400 UNIT) Oral CapsuleTAKE 1 CAPSULE BY MOUTH EVERY DAY Santyl 250 UNIT/GM External Ointment Sodium Chloride 1 GM Oral Tablet SSD 1 % External Cream TH Vitamin C TABS Vitamin E 450 MG (1000 UT) Oral Capsule Vitals Vital Signs Recorded: 06Mar2023 08:52AM Jomfuiaiiri14.4 F Heart Rate76 Qftxjthr647 Hpsqfwhle67 Height5 ft 5.5 in Kzgdqc256 lb BMI Basyfjgcvo44.48 kg/m2 BSA Calculated1.63 Tobacco Useb) No Falls Screening (Age 18+)a) No falls within the last year Physical Exam EXAMINATION: GENERAL EMY.EARANCE: Alert, status posttracheotomy, in no acute distress, normal pitch and clarity of voice, well-developed and nourished, cooperative. HEAD/FACE: Normocephalic, atraumatic, normal facial movements and strength, no no tenderness to palpation, no lesions noted. SKIN: Normal turgor, no raised or ulcerative lesions, warm and dry to palpation. EYES: Extraocular motions intact, no nystagmus noted, pupils equal and reactive to light and accommodation, no conjunctivitis. EAR (more content not included)... Normal [facility] Office Visit (Audiology)on 03-06-2023 Follow-up visit Diagnoses/Problems Bilateral sensorineural hearing loss (389.18) (H90.3) Auditory discrimination impairment, bilateral (388.43) (H93.293) Patient Discussion/Summary Patient to review results with Dr. Kumar See scanned audiogram. 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) Open wound of chin (873.44) (S01.80XA) Open wound of neck, subsequent encounter (V58.89,874.8) (S11.90XD) Oropharyngeal dysphagia (787.22) (R13.12) Pre-op exam (V72.84) (Z01.818) Status post tracheostomy (V44.0) (Z93.0) 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) Xerostomia (527.7) (K11.7) Past Medical History History of COVID-19 vaccination not done (V64.00) (Z28.9) No pertinent past medical history (V49.89) (Z78.9) Surgical History Denied: No history of surgery Family History Family history of cerebrovascular accident (CVA) (V17.1) (Z82.3) Social History Caffeine use (V49.89) (Z78.9) Employed Former smoker (V15.82) (Z87.891) Lives with family No alcohol use Allergies No Known Drug Allergies Recorded By: Christine Boucher; 01/19/2019 9:58:46 AM Current Meds Medication NameInstruction Albuterol Sulfate 1.25 MG/3ML Inhalation Nebulization Solution amLODIPine Besylate 5 MG Oral Tablet Folic Acid 400 MCG Oral Tablet Levothyroxine Sodium 100 MCG Oral Tablettake 1 tablet by mouth once daily oxyCODONE HCl - 5 MG Oral TabletTake one tablet twice/day as needed for pain. Pentoxifylline ER 400 MG Oral Tablet Extended Release Pilocarpine HCl - 5 MG Oral Tablettake 1 tablet by mouth three times a day for XEROSTOMIA RA Natural Vitamin E 268 MG (400 UNIT) Oral CapsuleTAKE 1 CAPSULE BY MOUTH EVERY DAY Santyl 250 UNIT/GM External Ointment Sodium Chloride 1 GM Oral Tablet SSD 1 % External Cream TH Vitamin C TABS Vitamin E 450 MG (1000 UT) Oral Capsule Procedure Otoscopic: Otoscopic exam revealed mostly clear ear canals, bilaterally. Tympanometry: Tympanograms were Type A for both ears indicating normal eardrum mobility at normal middle ear pressure. Ipsilateral acoustic reflexes were absent. Tones: Pure tone testing revealed a normal to severe sensorineural hearing loss for both ears. Speech: Speech legal receptionist thresholds were in good agreement with pure tone testing. Speech discrimination results were good at elevated presentation levels. 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 MY JAMA, is here for cancer follow up. He has I0V1tG1 oral cavity SCCa s/p triple, trach, PEG, composite resection, excision of skin and soft tissue, segmental mandibulectomy, right neck dissection, left neck exploration for vessels, reconstruction with left ALT and left fibular free flap on 11/07/21. He completed chemoradiation therapy 02/11. 1) Tracheostomy - #6 distal XLT with cap in place was changed today. New trach in place. He will continue with trach in place for now. 2) Open wound of the anterior neck skin - We have discussed possible revision surgery or HBO but as there has been slow improvement we will hold on those options at this time. We discussed recurrent infection although at this time he has not developed neck abscess or severe cellulitis. 3) Dysphagia - Marked improvement with speech swallowing therapy. Continue therapy. Continue to progress diet. Follow up in 2 months for cancer follow up. Chief Complaint trach change History of Present IllnessMr. MY JAMA, is a 62 year old male here for a trach change. Last seen 02/12. He continues to be followed at the [place] wound clinic. Continues with Shitone XLT, caps during day. Wound has continued to heal very slowly but is smaller. He comes in today with a new XLT trach for his trach change since we didn't have one in clinic last month. No other concerns. Overall doing ok. He has a history of [id number] oral cavity SCCa with chin involvement s/p triple, trach, PEG, composite resection, excision of skin and soft tissue, segmental mandibulectomy, right neck dissection, left neck exploration for vessels, reconstruction with left ALT and left fibular free flap on 11/07/21. Patient completed adjuvant chemoradiation on 02/06/22. History: Dx1: [id number] left neck (unknown primary) 2018 Dx2: [id number] SCCa of the oral cavity 202004/28/18: +odynophagia, EGD +distal esophagitis, biopsies +reflux Late 11/11: First noticed left neck mass 12/15/18: 1st evaluation, for enlarging left neck mass 12/17/18: CT neck and chest with left pathologic lymphadenopathy measuring 1.8x1.8x2.9cm and second lymph node measuring 1.2x1.6cm. CT chest with small scattered pulmonary nodules largest RUL 5mm, recommend CT chest in 1yr 12/22/18: US guided FNA of the left neck mass +SCCa with extensive necrosis, P16 negative. 12/31/18: Seen by medical oncologist, recommended ENT AND PET scan 01/02/19: OSH ENT consult with left fixed lymphadenopathy, small cystic lesion noted on uvula, negative laryngoscopy 01/05/19: PET scan with 2 hypermetabolic areas in the left neck (SUV 8.6 max), and increased FDG avidity in the left pharynx (SUV 3.4) measures 1.9cm 01/30/19: Triple endoscopy with tonsillectomy and uvulectomy removal 02/09/19: Started chemoradiation therapy 03/23/19: Last chemotherapy 03/25/19: Completed chemoradiation therapy 09/12: Loose anterior mandibular teeth/dental extraction 09/12: CT neck w/contrast enhancing mass involving the anterior oral cavity AND symphysis with bone involvement, no lymphadenopathy 09/12: Oral cavity biopsy at [facility] +SCCa 10/14: PET FDG avid oral cavity mass w/bone involvement SUV12, no lymphadenopathy or distant metastasis 11/07/21: S/p triple, trach, PEG, composite resection, excision of skin and soft tissue, segmental mandibulectomy, right neck dissection, left neck exploration for vessels, reconstruction with left ALT and left fibular free flap. Path + 6.5cm SCCa, 12/11 lymph nodes + metastasis. 11/10/21: S/p left neck exploration and revision of ALT flap (release of arterial kinking) 12/12: TB recommends radiation +/- chemotherapy 11/29/21: Trach changed to #4 cuffless AND capped, +cellulitis of chin and fibula on bactrim 12/03/21: Decannulated, decreased erythema 12/05/21: ED visit for SOB, 4-0 trach replaced 12/12: Started chemoradiation therapy 12/18: Trach open #4 12/29/21: Urgent add on - trach upsized to a #6 distal XLT 02/06/22: Completed chemoradiation 04/02/22: Left neck wound increased in size. Cultures obtained- + MRSA - recommend bactroban 05/14: Seeing wound care for stable midline neck wound - doing serial debridements 06/14: Integra placement without take 02/12: Wound continues to get smaller, XLT trach capped during the day 03/15: Trach change SH: Tob: 1ppd/35 years. currently down to 2-3 cigs/day. ETOH: beer. 12pk/week - but just cut down to a few a day Here with daughter By signing my name below, I, Koki Schneider, Violetaibe, attest that this documentation has been prepared under the direction and in the presence of Dr. Rachel Brooks MD. All medical record entries m (more content not included)... Normal [facility] Tobacco Screening.on 023 Adult depression screening assessment No [facility] Work Phone: Fall risk assessment a) No falls within the last year [facility] Work Phone: Tobacco use status [facility] b) No M [facility] Work Phone: Anaerobic cultureOrdered By: Joya Galvez on 02-17-2023 Bacteria identified Anaer cx Nom (Unsp spec) No anaerobic bacteria isolated. [facility] Bacteria identified Cx Nom ( Wound)Ordered By: Joya Galvez on 02-15-2023 Wound Culture Staphylococcus aureus [facility] Gram stain for investigation of transfusion reactionOrdered By: Joya Galvez on 02-14-2023 Microscopic observation Gram stain Nom (Unsp spec) [facility] Anaerobic cultureOrdered By: Joya Galvez on 02-13-2023 Bacteria identified Anaer cx Nom (Unsp spec) No anaerobic bacteria isolated. [facility] Bacteria identified Cx Nom ( Wound)Ordered By: Joya Galvez on 02-13-2023 Wound Culture Staphylococcus aureus [facility] Gram stain for investigation of transfusion reactionOrdered By: Joya Galvez on 02-13-2023 Microscopic observation Gram stain Nom (Unsp spec) [facility] Basophil percentageOrdered B y: Dr. 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 MY JAMA, is here for cancer follow up. He has Q0T4rL2 oral cavity SCCa s/p triple, trach, PEG, composite resection, excision of skin and soft tissue, segmental mandibulectomy, right neck dissection, left neck exploration for vessels, reconstruction with left ALT and left fibular free flap on 11/07/21. He completed chemoradiation therapy 02/11. 1) Tracheostomy - #6 distal XLT with cap in place. A new replacement trach will be ordered so that we can do an office trach change. Unfortunately they didn't have a replacement for a change today. Will bring replacement to his next visit for trach change then. 2) Open wound of the anterior neck skin - This is now very slowly improving although it has been >1 year. We have discussed possible revision surgery or HBO but as there has been slow improvement we will hold on those options at this time. We discussed recurrent infection although at this time he has not developed neck abscess or severe cellulitis. 3) Dysphagia - Marked improvement with speech swallowing therapy. Continue therapy. Continue to progress diet. Follow up in 2 months, sooner for trach change. Chief Complaint follow up History of Present IllnessMrBianca JAMA, is a 62 year old male here for a followup regarding his open anterior neck wound. Last seen 06/14. He continues to be followed at the [place] wound clinic. Continues with Amber SCOTT, caps during day. Wound has continued to heal very slowly but is smaller. He has a history of [id number] oral cavity SCCa with chin involvement s/p triple, trach, PEG, composite resection, excision of skin and soft tissue, segmental mandibulectomy, right neck dissection, left neck exploration for vessels, reconstruction with left ALT and left fibular free flap on 11/07/21. Patient completed adjuvant chemoradiation on 02/06/22. History: Dx1: [id number] left neck (unknown primary) 2018 Dx2: [id number] SCCa of the oral cavity 202004/28/18: +odynophagia, EGD +distal esophagitis, biopsies +reflux Late 11/11: First noticed left neck mass 12/15/18: 1st evaluation, for enlarging left neck mass 12/17/18: CT neck and chest with left pathologic lymphadenopathy measuring 1.8x1.8x2.9cm and second lymph node measuring 1.2x1.6cm. CT chest with small scattered pulmonary nodules largest RUL 5mm, recommend CT chest in 1yr 12/22/18: US guided FNA of the left neck mass +SCCa with extensive necrosis, P16 negative. 12/31/18: Seen by medical oncologist, recommended ENT AND PET scan 01/02/19: OSH ENT consult with left fixed lymphadenopathy, small cystic lesion noted on uvula, negative laryngoscopy 01/05/19: PET scan with 2 hypermetabolic areas in the left neck (SUV 8.6 max), and increased FDG avidity in the left pharynx (SUV 3.4) measures 1.9cm 01/30/19: Triple endoscopy with tonsillectomy and uvulectomy removal 02/09/19: Started chemoradiation therapy 03/23/19: Last chemotherapy 03/25/19: Completed chemoradiation therapy 09/12: Loose anterior mandibular teeth/dental extraction 09/12: CT neck w/contrast enhancing mass involving the anterior oral cavity AND symphysis with bone involvement, no lymphadenopathy 09/12: Oral cavity biopsy at [facility] +SCCa 10/14: PET FDG avid oral cavity mass w/bone involvement SUV12, no lymphadenopathy or distant metastasis 11/07/21: S/p triple, trach, PEG, composite resection, excision of skin and soft tissue, segmental mandibulectomy, right neck dissection, left neck exploration for vessels, reconstruction with left ALT and left fibular free flap. Path + 6.5cm SCCa, 12/11 lymph nodes + metastasis. 11/10/21: S/p left neck exploration and revision of ALT flap (release of arterial kinking) 12/12: TB recommends radiation +/- chemotherapy 11/29/21: Trach changed to #4 cuffless AND capped, +cellulitis of chin and fibula on bactrim 12/03/21: Decannulated, decreased erythema 12/05/21: ED visit for SOB, 4-0 trach replaced 12/12: Started chemoradiation therapy 12/18: Trach open #4 12/29/21: Urgent add on - trach upsized to a #6 distal XLT 02/06/22: Completed chemoradiation 04/02/22: Left neck wound increased in size. Cultures obtained- + MRSA - recommend bactroban 05/14: Seeing wound care for stable midline neck wound - doing serial debridements 06/14: Integra placement without take SH: Tob: 1ppd/35 years. currently down to 2-3 cigs/day. ETOH: beer. 12pk/week - but just cut down to a few a day Here with daughter By signing my name below, I, Kuldeep Braden, attest that this documentation has been prepared under the direction and in the presence of Dr. Rachel Brooks MD. All medical record entries made by the Scribe were at my direction and personally dictated by me, Dr. Siegel (more content not included)... Normal [facility] No Panel InformationOrdered By: Dr. Sellers on 01-28-2023 Bedside Estimated GFR (eGFR) > 60.0000 mL/min >60 [facility] Tobacco Screening.on 023 Fall risk assessment a) No falls within the last year [facility] [address] Work Phone: Tobacco use status [facility] b) No M G-Otolaryngol [facility] [address] Work Phone: LIPID PANEL ([phone])Ordered B y: Chemical Dependency Professional on 01-17-2023 Cholesterol [Mass/Vol] 130 mg/dL Normal 100-199 [facility] Work Phone: Cholesterol in HDL [Mass/Vol] 43 mg/dL Normal [facility]; [facility] Work Phone: Triglyceride [Mass/Vol] 59 mg/dL Normal 0-149 [facility]; [facility] Work Phone: LIPID PANEL ([phone]) 13 mg/dL Normal 5-40 [facility]; [facility] Work Phone: LIPID PANEL ([phone]) 74 mg/dL Normal 0-99 [facility]; [facility] Work Phone: LIPID PANEL ([phone]) 1.7 {ratio} Normal 0.0-3.6 [facility]; [facility] Work Phone: THIAMINE (B-1) ([phone])Ordere d By: Chemical Dependency Professional on 01-17-2023 Thiamine (Bld) [Moles/Vol] 148.3 nmol/L Normal 66.5-200.0 [facility]; [facility] Work Phone: TSH (THYROID STIMULATING HOR NIK) ([phone])Ordered By: Chemical Dependency Professional on 01-17-2023 TSH Qn 0.172 {uIU/mL} Abnormal 0.450-4.50 0 [facility]; [facility] Work Phone: VITAMIN B12 AND FOLATES ([phone])Ordered By: Chemical Dependency Professional on 01-17-2023 Cobalamin (Vitamin B12) [Mass/Vol] 640 pg/mL Normal 232-1245 [facility]; [facility] Work Phone: Folate [Mass/Vol] ng/mL Normal [facility]; [facility] Work Phone: Bacteria identified Anaer cx Nom (Unsp spec)Ordered By: Joya Galvez on 01-13-2023 Anaerobic Culture Anaerobic cocci [facility] Bacteria identified Cx Nom ( Wound)Ordered By: Joya Galvez on 01-12-2023 Wound Culture Pseudomonas aeruginosa [facility] Wound Culture Meth. resistant Stap h. aureus [facility] Gram stain for investigation of transfusion reactionOrdered By: Joya Galvez on 01-10-2023 Microscopic observation Gram stain Nom (Unsp spec) [facility] Bacteria identified Anaer cx Nom (Unsp spec)Ordered By: Joya Galvez on 01-09-2023 Anaerobic Culture Anaerobic cocci [facility] Bacteria identified Cx Nom ( Wound)Ordered By: Joya Galvez on 01-09-2023 Wound Culture Pseudomonas aeruginosa [facility] Wound Culture Meth. resistant Stap h. aureus [facility] Gram stain for investigation of transfusion reactionOrdered By: Joya Galvez on 01-09-2023 Microscopic observation Gram stain Nom (Unsp spec) [facility] Absolute lymphocyte countOrd ered By: Dr. Simpson on 11-21-2022 Lymphocytes Auto (Unsp spec) [#/Vol] 1.62 10*3/uL 0.83-4.51 [facility] Basophil percentageOrdered B y: Dr. Simpson on 11-21-2022 Basophils/100 WBC (Bld) 0.4 % 0-1 [facility] Bilirubin [Mass/Vol] 0.20 mg/dL 0.20-1.00 [facility] Comment on above: For patients on eltr ombopag therapy, use of Dimension [place] TBIL is not recommended. Chloride [Moles/Vol] 103 mmol/L 98-107 [facility] Eosinophils/100 WBC (Bld) 0.6 % 0-5 [facility] Glucose [Mass/Vol] 105 mg/dL 74-106 [facility] Comment on above: Fasting Glucose resu lt from 100 to 125 mg/dL suggests IMPAIRED HOMEOSTASIS per A.D.A. criteria. Neutrophils (Bld) [#/Vol] 3.2 10*3/uL 2.0-7.7 [facility] Neutrophils/100 WBC (Bld) 58.7 % 47-70 [facility] Potassium [Moles/Vol] 4.3 mmol/L 3.5-5.1 [facility] Protein [Mass/Vol] 7.8 g/dL 6.4-8.2 [facility] Sodium [Moles/Vol] 139 mmol/L 136-145 [facility] WBC (Bld) [#/Vol] 5.4 10*3/uL 4.4-11.0 [facility] Blood erythrocytes count (nu mber/volume)Ordered By: Dr. Simpson on 11-21-2022 RBC (Bld) [#/Vol] 4.37 10*6/uL 4.6-6.2 [facility] Blood hemoglobin measurement (mass/volume)Ordered By: Dr. Simpson on 11-21-2022 Hemoglobin (Bld) [Mass/Vol] 12.8 g/dL 13.0-16.5 [facility] Blood lymphocytes/100 leukoc ytesOrdered By: Dr. Simpson on 11-21-2022 Lymphocytes/100 WBC (Bld) 29.8 % 19-41 [facility] Blood monocytes/100 leukocyt esOrdered By: Dr. Simpson on 11-21-2022 Monocytes/100 WBC (Bld) 10.1 % 0-10 [facility] Blood platelet mean volumeOr dered By: Dr. Simpson on 11-21-2022 Platelet mean volume (Bld) [Entitic vol] 10.7 fL 6.2-12.0 [facility] Determination of erythrocyte mean corpuscular volume (MCV)Ordered By: Dr. Simpson on 11-21-2022 MCV (RBC) [Entitic vol] 92.2 fL 80-94 [facility] Hematocrit Auto (Bld) [Volum e fraction]Ordered By: Dr. Simpson on 11-21-2022 Hematocrit (Bld) [Volume fraction] 40.3 % 40-54 [facility] Laboratory - Chemistry and C hemistry - challengeOrdered By: Dr. Simpson on 11-21-2022 ALP [Catalytic activity/Vol] 108 U/L 45-117 [facility] ALT [Catalytic activity/Vol] 26 U/L 16-61 [facility] CO2 [Moles/Vol] 31.0 mmol/L 21.0-32.0 [facility] Globulin (S) [Mass/Vol] 4.4 g/dL 2.2-4.2 [facility] Urea nitrogen/Creatinine [Mass ratio] 39.5 mg/mg 10-20 [facility] - Hematology and Cell countsOrdered By: Dr. Simpson on 11-21-2022 Erythrocyte distribution width (RBC) [Entitic vol] 47.3 fL 35.1-43.9 [facility] Erythrocyte distribution width (RBC) [Ratio] 13.9 % 11.6-14.6 [facility] Immature granulocytes/100 WBC (Bld) 0.400 % 0.0-0.9 [facility] Comment on above: IG% - Immature Granu locytes (promyelocytes, myelocytes and metamyelocytes) > 1% indicates that a LEFT SHIFT is Present. MCH (RBC) [Entitic mass] 29.3 pg 27.0-32.0 [facility] Nucleated RBC/100 WBC (Bld) [Ratio] 0 % 0-5 [facility] MCHC Auto (RBC) [Mass/Vol]Or dered By: Dr. Simpson on 11-21-2022 MCHC (RBC) [Mass/Vol] 31.8 g/dL 32-36 [facility] No Panel InformationOrdered By: Dr. Simpson on 11-21-2022 Estimated Creatinine Clearance Calc 139.13 ml/min [facility] Estimated GFR (MDRD) Amer 242 mL/min >60 [facility] Comment on above: GFR Calc Estimated GFR (MDRD) Non-Af Amer 200 mL/min >60 [facility] Comment on above: Non- GFR Calc Platelets bldOrdered By: Dr. Simpson on 11-21-2022 Platelets (Bld) [#/Vol] 270 10*3/uL 150-450 [facility] Serum or plasma albumin yesi urement (mass/volume)Ordered By: Dr. Simpson on 11-21-2022 Albumin [Mass/Vol] 3.4 g/dL 3.2-5.0 [facility] Serum or plasma albumin/glob ulin mass ratioOrdered By: Dr. Simpson on 11-21-2022 Albumin/Globulin [Mass ratio] 0.8 {ratio} 0.9-2.4 [facility] Serum or plasma calcium yesi urement (mass/volume)Ordered By: Dr. Simpson on 11-21-2022 Calcium [Mass/Vol] 9.2 mg/dL 8.5-10.1 [facility] Serum or plasma creatinine m easurement (mass/volume)Ordered By: Dr. Simpson on 11-21-2022 Creatinine [Mass/Vol] 0.46 mg/dL 0.70-1.30 [facility] Comment on above: The validity of the calculated GFR & GFRAA in patients over 70 years has not been determined. Clinical correlation is essential. Serum or plasma urea nitroge n measurement (mass/volume)Ordered By: Dr. Simpson on 11-21-2022 Urea nitrogen [Mass/Vol] 18 mg/dL 7-18 [facility] Thin prep Papanicolaou smear with manual screeningOrdered By: Dr. Simpson on 11-21-2022 Thin prep Papanicolaou smear with manual screening 17 U/L 15-37 [facility] Thin prep Papanicolaou smear with manual screening 5 5-15 [facility] Anaerobic cultureOrdered By: Joya Galvez on 11-17-2022 Bacteria identified Anaer cx Nom (Unsp spec) No anaerobic bacteria isolated. [facility] Bacteria identified Cx Nom ( Wound)Ordered By: Joya Galvez on 11-16-2022 Wound Culture Escherichia coli [facility] Wound Culture Pseudomonas aeroginosa [facility] Gram stain for investigation of transfusion reactionOrdered By: Joya Galvez on 11-14-2022 Microscopic observation Gram stain Nom (Unsp spec) [facility] Bacteria identified Anaer cx Nom (Unsp spec)Ordered By: Joya Galvez on 10-06-2022 Anaerobic Culture Anaerobic cocci [facility] Bacteria identified Cx Nom ( Wound)Ordered By: Joya Galvez on 10-05-2022 Wound Culture Meth. resistant Stap h. aureus [facility] Gram stain for investigation of transfusion reactionOrdered By: Joya Galvez on 10-03-2022 Microscopic observation Gram stain Nom (Unsp spec) [facility] TSHon 08-06-2022 TSH Qn 0.30 m[IU]/L Low 0.44 - 3.98 [facility] Comment on above: Result Comment: TSH testing is performed using different testing methodology at [facility] than at other [facility]. Direct result comparisons should only be made within the same method. Performed By: #### T SH2 #### [facility] [address] [place] [address] TSH - Thyroid Stimulating Ho Luis lemoson 08-06-2022 TSH Qn 0.30 m[IU]/L below low threshold See Below MG-Otolaryngol ogy-Admin [place] [address] Work Phone: Comment on above: Reference Range: 0.4 4 - 3.98 TSH testing is performed using different testing methodology at [facility] than at other [facility]. Direct result comparisons should only be made within the same method. Basophil percentageOrdered B y: Dr. Simpson on 07-24-2022 Basophil percentage < 0.9 mg/dL 0.70-1.30 [facility] No Panel InformationOrdered By: Dr. Simpson on 07-24-2022 Bedside Estimated GFR (eGFR) > 60.0000 mL/min >60 [facility] Bacteria identified Cx Nom ( Wound)Ordered By: Joya Galvez on 07-14-2022 Wound Culture Pseudomonas aeroginosa [facility] Wound Culture Streptococcus agalactiae (B) [facility] Bacteria identified Anaer cx Nom (Unsp spec)Ordered By: Joya Galvez on 07-13-2022 Anaerobic Culture Anaerobic cocci [facility] Gram stain for investigation of transfusion reactionOrdered By: Joya Galvez on 07-11-2022 Microscopic observation Gram stain Nom (Unsp spec) [facility] Established Visit (Otolaryng ology)on 06-18-2022 Established Visit (Otolaryngology) Diagnoses/Problems Xerostomia (527.7) (K11.7) Oropharyngeal dysphagia (787.22) (R13.12) Open wound of neck, subsequent encounter (V58.89,874.8) (S11.90XD) 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 MY JAMA, is here for cancer follow up. He has I4O2wX3 oral cavity SCCa s/p triple, trach, PEG, composite resection, excision of skin and soft tissue, segmental mandibulectomy, right neck dissection, left neck exploration for vessels, reconstruction with left ALT and left fibular free flap on 11/07/21. He completed chemoradiation therapy 02/11. 1) Tracheostomy - #6 distal XLT with cap in place. Can cap but continue trach at this time. 2) Open wound of the anterior neck skin - This is now stable. He has integra on at this time but unfortunately this doesn't show any take today. I believe he may no require further surgery for closure of this would may require a larger free flap reconstruction or regional tissue reconstruction such as a pec flap. I continue to recommend against HBO. 3) Dysphagia - Marked improvement with speech swallowing therapy. Continue therapy. Continue to progress diet. 4) Cancer pain - recommend referral to supportive oncology. He will call after his wound care follow up in 2 days. I feel at this time we may need to consider further surgical options. Chief Complaint follow up visit History of Present IllnessMrBianca JAMA, is a 61 year old male here for a followup regarding his open anterior neck wound. Last seen 05/14/22. He has going to weekly wound clinic at [place]. They have been doing weekly debridements and then placed integra. There is a smell. He returns in 2 days. He is 4 months out from radiation now. 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 Patient completed adjuvant chemoradiation on 02/06/22. History: Dx1: [id number] left neck (unknown primary) 2018 Dx2: [id number] SCCa of the oral cavity 202004/28/18: +odynophagia, EGD +distal esophagitis, biopsies +reflux Late 11/11: First noticed left neck mass 12/15/18: 1st evaluation, for enlarging left neck mass 12/17/18: CT neck and chest with left pathologic lymphadenopathy measuring 1.8x1.8x2.9cm and second lymph node measuring 1.2x1.6cm. CT chest with small scattered pulmonary nodules largest RUL 5mm, recommend CT chest in 1yr 12/22/18: US guided FNA of the left neck mass +SCCa with extensive necrosis, P16 negative. 12/31/18: Seen by medical oncologist, recommended ENT AND PET scan 01/02/19: OSH ENT consult with left fixed lymphadenopathy, small cystic lesion noted on uvula, negative laryngoscopy 01/05/19: PET scan with 2 hypermetabolic areas in the left neck (SUV 8.6 max), and increased FDG avidity in the left pharynx (SUV 3.4) measures 1.9cm 01/30/19: Triple endoscopy with tonsillectomy and uvulectomy removal 02/09/19: Started chemoradiation therapy 03/23/19: Last chemotherapy 03/25/19: Completed chemoradiation therapy 09/12: Loose anterior mandibular teeth/dental extraction 09/12: CT neck w/contrast enhancing mass involving the anterior oral cavity AND symphysis with bone involvement, no lymphadenopathy 09/12: Oral cavity biopsy at [facility] +SCCa 10/14: PET FDG avid oral cavity mass w/bone involvement SUV12, no lymphadenopathy or distant metastasis 11/07/21: S/p triple, trach, PEG, composite resection, excision of skin and soft tissue, segmental mandibulectomy, right neck dissection, left neck exploration for vessels, reconstruction with left ALT and left fibular free flap. Path + 6.5cm SCCa, 12/11 lymph nodes + metastasis. 11/10/21: S/p left neck exploration and revision of ALT flap (release of arterial kinking) 12/12: TB recommends radiation +/- chemotherapy 11/29/21: Trach changed to #4 cuffless AND capped, +cellulitis of chin and fibula on bactrim 12/03/21: Decannulated, decreased erythema 12/05/21: ED visit for SOB, 4-0 trach replaced 12/12: Started chemoradiation therapy 12/18: Trach open #4 12/29/21: Urgent add on - trach upsized to a #6 distal XLT 02/06/22: Completed chemoradiation 04/02/22: Left neck wound increased in size. Cultures obtained- + MRSA - recommend bactroban 05/14: Seeing wound care for stable midline neck wound - doing serial debridements 06/14: Integra placement without take SH: Tob: 1ppd/35 years. currently down to 2-3 cigs/day. ETOH: beer. 12pk/week - but just cut down to a few a day Here with family Review of Systems ENT and Constitutional systems have been reviewed and are negative for (more content not included)... Normal [facility] TSHon 06-18-2022 TSH Qn 4.66 m[IU]/L High 0.44 - 3.98 [facility] Comment on above: Result Comment: TSH testing is performed using different testing methodology at [facility] than at other [facility]. Direct result comparisons should only be made within the same method. Performed By: #### T SH2 #### [facility] [address] [address] TSH - Thyroid Stimulating Ho canelo, Serumon 06-18-2022 TSH Qn 4.66 m[IU]/L above high threshold See Below MG-Otolaryngol ogy-Admin [place] [address] Work Phone: Comment on above: Reference Range: 0.4 4 - 3.98 TSH testing is performed using different testing methodology at [facility] than at other [facility]. Direct result comparisons should only be made within the same method. Absolute lymphocyte counton 05-23-2022 Lymphocytes Auto (Unsp spec) [#/Vol] 1.03 10*3/uL 0.83-4.51 [facility] Work Phone: Basophil percentageOrdered B y: Dr. Simpson on 05-23-2022 Basophil percentage 3.9 mg/dL 2.5-4.9 [facility] Basophil percentageon 2021 Basophils/100 WBC (Bld) 0.4 % 0-1 [facility] Work Phone: Bilirubin [Mass/Vol] 0.20 mg/dL 0.20-1.00 [facility]: Comment on above: For patients on eltr ombopag therapy, use of Dimension [place] TBIL is not recommended. Chloride [Moles/Vol] 99 mmol/L 98-107 [facility] Work Phone: Eosinophils/100 WBC (Bld) 0.4 % 0-5 [facility] Work Phone: Glucose [Mass/Vol] 105 mg/dL 74-106 [facility] Work Phone: Comment on above: Fasting Glucose resu lt from 100 to 125 mg/dL suggests IMPAIRED HOMEOSTASIS per A.D.A. criteria. Neutrophils (Bld) [#/Vol] 6.1 10*3/uL 2.0-7.7 [facility] Work Phone: Neutrophils/100 WBC (Bld) 76.7 % 47-70 [facility] Work Phone: Potassium [Moles/Vol] 4.1 mmol/L 3.5-5.1 [facility] Work Phone: Protein [Mass/Vol] 8.4 g/dL 6.4-8.2 [facility] Work Phone: Sodium [Moles/Vol] 135 mmol/L 136-145 [facility] Work Phone: WBC (Bld) [#/Vol] 7.9 10*3/uL 4.4-11.0 [facility] Work Phone: Blood erythrocytes count (nu mber/volume)on 05-23-2022 RBC (Bld) [#/Vol] 4.08 10*6/uL 4.6-6.2 [facility] Work Phone: Blood hemoglobin measurement (mass/volume)on 05-23-2022 Hemoglobin (Bld) [Mass/Vol] 11.0 g/dL 13.0-16.5 [facility] Work Phone: Blood lymphocytes/100 leukoc yteson 05-23-2022 Lymphocytes/100 WBC (Bld) 13.1 % 19-41 [facility] Work Phone: Blood monocytes/100 leukocyt eson 05-23-2022 Monocytes/100 WBC (Bld) 9.0 % 0-10 [facility] Work Phone: Blood platelet mean volumeon 05-23-2022 Platelet mean volume (Bld) [Entitic vol] 9.2 fL 6.2-12.0 [facility] Work Phone: Determination of erythrocyte mean corpuscular volume (MCV)on 05-23-2022 MCV (RBC) [Entitic vol] 86.8 fL 80-94 [facility] Work Phone: Hematocrit Auto (Bld) [Volum e fraction]on 05-23-2022 Hematocrit (Bld) [Volume fraction] 35.4 % 40-54 [facility] Work Phone: Laboratory - Chemistry and C hemistry - challengeon 05-23-2022 ALP [Catalytic activity/Vol] 109 U/L 45-117 [facility] Work Phone: ALT [Catalytic activity/Vol] 29 U/L 16-61 [facility] Work Phone: CO2 [Moles/Vol] 30.0 mmol/L 21.0-32.0 [facility] Work Phone: Globulin (S) [Mass/Vol] 4.9 g/dL 2.2-4.2 [facility] Work Phone: Urea nitrogen/Creatinine [Mass ratio] 31.7 mg/mg 10-20 [facility] Work Phone: Laboratory - Chemistry and C hemistry - challengeOrdered By: Dr. Simpson on 05-23-2022 Magnesium [Mass/Vol] 1.9 mg/dL 1.6-2.6 [facility] Laboratory - Hematology and Cell countson 05-23-2022 Erythrocyte distribution width (RBC) [Entitic vol] 51.3 fL 35.1-43.9 [facility] Work Phone: Erythrocyte distribution width (RBC) [Ratio] 16.1 % 11.6-14.6 [facility] Work Phone: Immature granulocytes/100 WBC (Bld) 0.400 % 0.0-0.9 [facility] Work Phone: Comment on above: IG% - Immature Granu locytes (promyelocytes, myelocytes and metamyelocytes) > 1% indicates that a LEFT SHIFT is Present. MCH (RBC) [Entitic mass] 27.0 pg 27.0-32.0 [facility] Work Phone: Nucleated RBC/100 WBC (Bld) [Ratio] 0 % 0-5 [facility] Work Phone: MCHC Auto (RBC) [Mass/Vol]on 05-23-2022 MCHC (RBC) [Mass/Vol] 31.1 g/dL 32-36 [facility] Work Phone: No Panel Informationon 05-23 Estimated Creatinine Clearance Calc 137.87 ml/min [facility] Work Phone: Estimated GFR (MDRD) Amer 233 mL/min >60 [facility] Work Phone: Comment on above: GFR Calc Estimated GFR (MDRD) Non-Af Amer 192 mL/min >60 [facility] Work Phone: Comment on above: Non- GFR Calc Platelets bldon 05-23-2022 Platelets (Bld) [#/Vol] 420 10*3/uL 150-450 [facility] Work Phone: Serum or plasma albumin yesi urement (mass/volume)on 05-23-2022 Albumin [Mass/Vol] 3.5 g/dL 3.2-5.0 [facility] Work Phone: Serum or plasma albumin/glob ulin mass ratioon 05-23-2022 Albumin/Globulin [Mass ratio] 0.7 {ratio} 0.9-2.4 [facility] Work Phone: Serum or plasma calcium yesi urement (mass/volume)on 05-23-2022 Calcium [Mass/Vol] 9.1 mg/dL 8.5-10.1 [facility] Work Phone: Serum or plasma creatinine m easurement (mass/volume)on 05-23-2022 Creatinine [Mass/Vol] 0.47 mg/dL 0.70-1.30 [facility] Work Phone: Comment on above: The validity of the calculated GFR & GFRAA in patients over 70 years has not been determined. Clinical correlation is essential. 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 Brooks evaluated you today. Your care plan is outlined below: -- You should have a PET scan now. have the med onc order it. -- Follow up with Dr. Brooks in 1 month. This appointment was scheduled at the end of your visit today. If you need to reschedule, please call the office at [phone]. Please keep in mind that last minute cancellations often result in delayed follow-up appointments. General appointment line please call [phone] For general questions or scheduling issues please call [phone] option #2 For medical questions or surgery scheduling please call [phone]. Please be sure to leave a voice mail. Dr. Brooks makes every effort to run on time for your appointments. Therefore, if you are more than 30 minutes late for your appointment, unrelated to a scan or another appointment such as chemotherapy or radiation, your appointment will need to be rescheduled to another day. We appreciate your understanding. Provider Impressions Mr. MY JAMA, is here for cancer follow up. He has [id number] oral cavity SCCa s/p triple, trach, PEG, composite resection, excision of skin and soft tissue, segmental mandibulectomy, right neck dissection, left neck exploration for vessels, reconstruction with left ALT and left fibular free flap on 11/07/21. He completed chemoradiation therapy 02/11. 1) Tracheostomy - #6 distal XLT with cap in place. He is using the cap more. Continue capping trials. Not ready to decannulate at this time since he may require further surgery. 2) Open wound of the anterior neck skin - This is now stable. On levaquin per wound team. Getting serial debridements. Considering coverage. May try integra or wound vac. Do NOT recommend HBO. Recommend surface treatments first prior to HBO therapy due to cancer risk. 3) Dysphagia - Marked improvement with speech swallowing therapy. Continue therapy. Continue to progress diet. 4) Cancer pain - recommend referral to supportive oncology. Needs refill today but waiting for the date of his pain appointment because I'm concerned he's getting pain scripts from so many different providers. Follow up in 1 month Chief Complaint wound check History of Present IllnessMrBianca JAMA, is a 61 year old male here for a followup regarding his open anterior chin wound. Last seen 04/16/22. He has been referred to the wound clinic at [place]. He goes once a week and they deride the wound. He has his trach capped today. He is currently on Levaquin for 14 days. He has been seen by [facility] REGISTERED NURSE and is advancing his diet. He is 3 months out from his cancer treatment. He is due for his 3 month post treatment now. He is being seen by his med onc next week. He has been referred to pain clinic but doesn't have a date for his appointment yet. He is out of pain meds. Dr. Sellers gave him the last script. He has a history of G9Q0nU5 oral cavity SCCa with chin involvement s/p triple, trach, PEG, composite resection, excision of skin and soft tissue, segmental mandibulectomy, right neck dissection, left neck exploration for vessels, reconstruction with left ALT and left fibular free flap on 11/07/21. Patient completed adjuvant chemoradiation on 02/06/22. History: Dx1: [id number] left neck (unknown primary) 2018 Dx2: [id number] SCCa of the oral cavity 202004/28/18: +odynophagia, EGD +distal esophagitis, biopsies +reflux Late 11/11: First noticed left neck mass 12/15/18: 1st evaluation, for enlarging left neck mass 12/17/18: CT neck and chest with left pathologic lymphadenopathy measuring 1.8x1.8x2.9cm and second lymph node measuring 1.2x1.6cm. CT chest with small scattered pulmonary nodules largest RUL 5mm, recommend CT chest in 1yr 12/22/18: US guided FNA of the left neck mass +SCCa with extensive necrosis, P16 negative. 12/31/18: Seen by medical oncologist, recommended ENT AND PET scan 01/02/19: OSH ENT consult with left fixed lymphadenopathy, small cystic lesion noted on uvula, negative laryngoscopy 01/05/19: PET scan with 2 hypermetabolic areas in the left neck (SUV 8.6 max), and increased FDG avidity in the left pharynx (SUV 3.4) measures 1.9cm 01/30/19: Triple endoscopy with tonsillectomy and uvulectomy removal 02/09/19: Started chemoradiation therapy 03/23/19: Last chemotherapy 03/25/19: Completed chemoradiation therapy 09/12: Loose anterior mandibular teeth/dental extraction 09/12: CT neck w/contrast enhancing mass involving the anterior oral cavity AND symphysis with bone involvement, no lymphadenopathy 09/12: Oral cavity biopsy at F +SCCa 10/14: PET FDG avid oral cavity mass w/bone involvement SUV12, no lymphadenopathy or distant meta (more content not included)... Normal [facility] Tobacco Screening.on 022 Fall risk assessment a) No falls within the last year [facility] Work Phone: Tobacco use status [facility] b) No M P[facility] Work Phone: Tobacco Screening.on Fall risk assessment a) No falls within the last year [facility] Work Phone: Tobacco use status [facility] b) No M [facility] Work Phone: Cult, Misc + smearon Bacteria identified Cx Nom (Unsp spec) Abnormal [facility] Work Phone: Tobacco Screening.on Fall risk assessment a) No falls within the last year [facility] Work Phone: Tobacco use status [facility] b) No M G[facility] Work Phone: Metabolic Panel, Basic ([id number])Ordered By: Chemical Dependency Professional on 02-22-2022 Calcium [Mass/Vol] 8.7 mg/dL Normal 8.7-10.2 [facility]; [facility] Work Phone: Comment on above: PATIENT NOT FASTINGP ERFORMED BY: CB [facility] [id number] [place] [id number] Chloride [Moles/Vol] 91 mmol/L Abnormal 96-106 Comp rehensive [facility]; [facility] Work Phone: Comment on above: PATIENT NOT FASTINGP ERFORMED BY: CB [facility] [id number] Dick RoadBillMyParents, Inc.blin [place] [id number] CO2 [Moles/Vol] 25 mmol/L Normal 20-29 [facility]; [facility] Work Phone: Comment on above: PATIENT NOT FASTINGP ERFORMED BY: CB [facility] [id number] aTyr Pharmablin [place] [id number] Creatinine [Mass/Vol] 0.35 mg/dL Abnormal 0.76-1.27 Com prehensive [facility]; [facility] Work Phone: Comment on above: PATIENT NOT FASTINGP ERFORMED BY: SAGRARIO Lablouisa [id number] Roadblin [place] [id number] GFR/1.73 sq M.predicted among non-blacks MDRD (S/P/Bld) [Vol rate/Area] 131 mL/min/{1.73_m2} Normal Comprehensi [facility]; [facility] Work Phone: Comment on above: PATIENT NOT FASTINGP ERFORMED BY: SAGRARIO [facility] [id number] Dick RoadDuin [place] [id number] Glucose [Mass/Vol] 77 mg/dL Normal 65-99 [facility]; [facility] Work Phone: Comment on above: PATIENT NOT FASTINGP ERFORMED BY: SAGRARIO Lablouisa GomezKajzfg9[address] Dick RoadGood Hope Hospitalin [place] [id number] Potassium [Moles/Vol] 4.7 mmol/L Normal 3.5-5.2 [facility] prehensive Internal Medicine; [facility] Work Phone: Comment on above: PATIENT NOT FASTINGP ERFORMED BY: SAGRARIO [facility] [id number] Dick RoadDublin [place] [id number] Sodium [Moles/Vol] 130 mmol/L Abnormal 134-144 [facility]; [facility] Work Phone: Comment on above: PATIENT NOT FASTINGP ERFORMED BY: SAGRARIO [facility] [id number] RoadDuin [place] [id number] Urea nitrogen [Mass/Vol] 13 mg/dL Normal 6-24 [facility]; [facility] Work Phone: Comment on above: PATIENT NOT FASTINGP ERFORMED BY: SAGRARIO [facility] [id number] Dick RoadDublin [place] [id number] Urea nitrogen/Creatinine [Mass ratio] 37 mg/mg Abnormal 9-20 [facility]; [facility] Work Phone: Comment on above: PATIENT NOT FASTINGP ERFORMED BY: SAGRARIO [facility] [id number] [facility] [place] [id number] Metabolic Panel, Basic (09231) 131 mL/min/1.73 Normal [facility]; [facility] Work Phone: Metabolic Panel, Basic ([id number])Ordered By: Chemical Dependency Professional on 02-15-2022 Calcium [Mass/Vol] 8.9 mg/dL Normal 8.7-10.2 [facility]; [facility] Work Phone: Comment on above: PATIENT NOT FASTINGP ERFORMED BY: SAGRARIO [facility] [id number] RoadDublin [place] [id number] Chloride [Moles/Vol] 92 mmol/L Abnormal 96-106 Comp re[facility]ive [facility]; [facility] Work Phone: Comment on above: PATIENT NOT FASTINGP ERFORMED BY: SAGRARIO [facility] [id number] Dick RoadDublin [place] [id number] CO2 [Moles/Vol] 23 mmol/L Normal 20-29 [facility]; [facility] Work Phone: Comment on above: PATIENT NOT FASTINGP ERFORMED BY: SAGRARIO [facility] [id number] Dick RoadDublin [place] [id number] Creatinine [Mass/Vol] 0.43 mg/dL Abnormal 0.76-1.27 Com prehensive [facility]; [facility] Work Phone: Comment on above: PATIENT NOT FASTINGP ERFORMED BY: SAGRARIO Labcoshelia [id number] [facility] [place] [id number] GFR/1.73 sq M.predicted among non-blacks MDRD (S/P/Bld) [Vol rate/Area] 123 mL/min/{1.73_m2} Normal Comprehensi ve Internal Medicine; [facility] Work Phone: Comment on above: PATIENT NOT FASTINGP ERFORMED BY: SAGRARIO [facility] [id number] [facility] [place] [id number] Glucose [Mass/Vol] 87 mg/dL Normal 65-99 [facility]; [facility] Work Phone: Comment on above: PATIENT NOT FASTINGP ERFORMED BY: SAGRARIO [facility] [id number] [facility] [id number] Potassium [Moles/Vol] 5.2 mmol/L Normal 3.5-5.2 [facility] prehensive Internal Medicine; [facility] Work Phone: Comment on above: PATIENT NOT FASTINGP ERFORMED BY: SAGRARIO [facility] [id number] [facility] [id number] Sodium [Moles/Vol] 131 mmol/L Abnormal 134-144 [facility]; [facility] Work Phone: Comment on above: PATIENT NOT FASTINGP ERFORMED BY: SAGRARIO [facility] [id number] [facility] [id number] Urea nitrogen [Mass/Vol] 15 mg/dL Normal 6-24 [facility]; [facility] Work Phone: Comment on above: PATIENT NOT FASTINGP ERFORMED BY: SAGRARIO Lablouisa [id number] [facility] [id number] Urea nitrogen/Creatinine [Mass ratio] 35 mg/mg Abnormal 9-20 [facility]; [facility] Work Phone: Comment on above: PATIENT NOT FASTINGP ERFORMED BY: SAGRARIO [facility] [id number] [facility] [id number] Metabolic Panel, Basic (10598) 123 mL/min/1.73 Normal [facility]; [facility] Work Phone: Absolute lymphocyte counton 02-14-2022 Lymphocytes Auto (Unsp spec) [#/Vol] 0.86 10*3/uL 0.83-4.51 [facility] Basophil percentageon 2021 Basophil percentage 3.4 mg/dL 2.5-4.9 [facility] Basophils/100 WBC (Bld) 0.3 % 0-1 [facility] Bilirubin [Mass/Vol] 0.20 mg/dL 0.20-1.00 [facility] Comment on above: For patients on eltr ombopag therapy, use of Dimension [place] TBIL is not recommended. Chloride [Moles/Vol] 93 mmol/L 98-107 [facility] Eosinophils/100 WBC (Bld) 0.7 % 0-5 [facility] Glucose [Mass/Vol] 82 mg/dL 74-106 [facility] Neutrophils (Bld) [#/Vol] 4.3 10*3/uL 2.0-7.7 [facility] Neutrophils/100 WBC (Bld) 71.4 % 47-70 [facility] Potassium [Moles/Vol] 4.2 mmol/L 3.5-5.1 [facility] Protein [Mass/Vol] 8.1 g/dL 6.4-8.2 [facility] Sodium [Moles/Vol] 129 mmol/L 136-145 [facility] WBC (Bld) [#/Vol] 6.1 10*3/uL 4.4-11.0 [facility] Blood erythrocytes count (nu mber/volume)on 02-14-2022 RBC (Bld) [#/Vol] 3.44 10*6/uL 4.6-6.2 [facility] Blood hemoglobin measurement (mass/volume)on 02-14-2022 Hemoglobin (Bld) [Mass/Vol] 10.6 g/dL 13.0-16.5 [facility] Blood lymphocytes/100 leukoc yteson 02-14-2022 Lymphocytes/100 WBC (Bld) 14.2 % 19-41 [facility] Blood monocytes/100 leukocyt eson 02-14-2022 Monocytes/100 WBC (Bld) 12.7 % 0-10 [facility] Blood platelet mean volumeon 02-14-2022 Platelet mean volume (Bld) [Entitic vol] 8.1 fL 6.2-12.0 [facility] Determination of erythrocyte mean corpuscular volume (MCV)on 02-14-2022 MCV (RBC) [Entitic vol] 91.6 fL 80-94 [facility] Hematocrit Auto (Bld) [Volum e fraction]on 02-14-2022 Hematocrit (Bld) [Volume fraction] 31.5 % 40-54 [facility] Laboratory - Chemistry and C hemistry - challengeon 02-14-2022 ALP [Catalytic activity/Vol] 97 U/L 45-117 [facility] ALT [Catalytic activity/Vol] 26 U/L 16-61 [facility] CO2 [Moles/Vol] 31.0 mmol/L 21.0-32.0 [facility] Globulin (S) [Mass/Vol] 4.7 g/dL 2.2-4.2 [facility] Magnesium [Mass/Vol] 1.9 mg/dL 1.6-2.6 [facility] Urea nitrogen/Creatinine [Mass ratio] 52.9 mg/mg 10-20 [facility] Laboratory - Hematology and Cell countson 02-14-2022 Erythrocyte distribution width (RBC) [Entitic vol] 49.9 fL 35.1-43.9 [facility] Erythrocyte distribution width (RBC) [Ratio] 14.9 % 11.6-14.6 [facility] Immature granulocytes/100 WBC (Bld) 0.700 % 0.0-0.9 [facility] Comment on above: IG% - Immature Granu locytes (promyelocytes, myelocytes and metamyelocytes) > 1% indicates that a LEFT SHIFT is Present. MCH (RBC) [Entitic mass] 30.8 pg 27.0-32.0 [facility] Nucleated RBC/100 WBC (Bld) [Ratio] 0 % 0-5 [facility] MCHC Auto (RBC) [Mass/Vol]on 02-14-2022 MCHC (RBC) [Mass/Vol] 33.7 g/dL 32-36 [facility] No Panel Informationon 02-14 Estimated GFR (MDRD) Amer 302 mL/min >60 [facility] Comment on above: GFR Calc Estimated GFR (MDRD) Non-Af Amer 249 mL/min >60 [facility] Comment on above: Non- GFR Calc Platelets bldon 02-14-2022 Platelets (Bld) [#/Vol] 464 10*3/uL 150-450 [facility] Serum or plasma albumin yesi urement (mass/volume)on 02-14-2022 Albumin [Mass/Vol] 3.4 g/dL 3.2-5.0 [facility] Serum or plasma albumin/glob ulin mass ratioon 02-14-2022 Albumin/Globulin [Mass ratio] 0.7 {ratio} 0.9-2.4 [facility] Serum or plasma calcium yesi urement (mass/volume)on 02-14-2022 Calcium [Mass/Vol] 9.0 mg/dL 8.5-10.1 [facility] Serum or plasma creatinine m easurement (mass/volume)on 02-14-2022 Creatinine [Mass/Vol] 0.38 mg/dL 0.70-1.30 [facility] Comment on above: The validity of the calculated GFR & GFRAA in patients over 70 years has not been determined. Clinical correlation is essential. Serum or plasma urea nitroge n measurement (mass/volume)on 02-14-2022 Urea nitrogen [Mass/Vol] 20 mg/dL 7-18 [facility] Thin prep Papanicolaou smear with manual screeningon 02-14-2022 Thin prep Papanicolaou smear with manual screening 12 U/L 15-37 [facility] Thin prep Papanicolaou smear with manual screening 5 5-15 [facility] Tobacco Screening.on 022 Fall risk assessment a) No falls within the last year [facility] Work Phone: Tobacco use status [facility] b) No M P[facility]tol[facility] Work Phone: Absolute lymphocyte counton 01-31-2022 Lymphocytes Auto (Unsp spec) [#/Vol] 0.66 10*3/uL 0.83-4.51 [facility] Work Phone: Basophil percentageon 2021 Basophil percentage 3.9 mg/dL 2.5-4.9 [facility] Work Phone: Basophils/100 WBC (Bld) 0.2 % 0-1 [facility] Work Phone: Chloride [Moles/Vol] 96 mmol/L 98-107 [facility] Work Phone: Eosinophils/100 WBC (Bld) 0.7 % 0-5 [facility] Work Phone: Glucose [Mass/Vol] 78 mg/dL 74-106 [facility] Work Phone: Neutrophils (Bld) [#/Vol] 4.5 10*3/uL 2.0-7.7 [facility] Work Phone: Neutrophils/100 WBC (Bld) 75.6 % 47-70 [facility] Work Phone: Potassium [Moles/Vol] 3.8 mmol/L 3.5-5.1 [facility] Work Phone: Sodium [Moles/Vol] 132 mmol/L 136-145 [facility] Work Phone: WBC (Bld) [#/Vol] 5.9 10*3/uL 4.4-11.0 [facility] Work Phone: Blood erythrocytes count (nu mber/volume)on 01-31-2022 RBC (Bld) [#/Vol] 3.13 10*6/uL 4.6-6.2 [facility] Work [facility]: Blood hemoglobin measurement (mass/volume)on 01-31-2022 Hemoglobin (Bld) [Mass/Vol] 9.7 g/dL 13.0-16.5 [facility] Work Phone: Blood lymphocytes/100 leukoc yteson 01-31-2022 Lymphocytes/100 WBC (Bld) 11.2 % 19-41 [facility] Work Phone: Blood monocytes/100 leukocyt eson 01-31-2022 Monocytes/100 WBC (Bld) 12.1 % 0-10 [facility] Work Phone: Blood platelet mean volumeon 01-31-2022 Platelet mean volume (Bld) [Entitic vol] 8.1 fL 6.2-12.0 [facility] Work Phone: Determination of erythrocyte mean corpuscular volume (MCV)on 01-31-2022 MCV (RBC) [Entitic vol] 93.9 fL 80-94 [facility] Work Phone: Hematocrit Auto (Bld) [Volum e fraction]on 01-31-2022 Hematocrit (Bld) [Volume fraction] 29.4 % 40-54 [facility] Work Phone: Laboratory - Chemistry and C hemistry - challengeon 01-31-2022 CO2 [Moles/Vol] 31.0 mmol/L 21.0-32.0 [facility] Work Phone: Magnesium [Mass/Vol] 1.6 mg/dL 1.6-2.6 [facility] Work Phone: Urea nitrogen/Creatinine [Mass ratio] 43.5 mg/mg 10-20 [facility] Work Phone: Laboratory - Hematology and Cell countson 01-31-2022 Erythrocyte distribution width (RBC) [Entitic vol] 53.1 fL 35.1-43.9 [facility] Work Phone: Erythrocyte distribution width (RBC) [Ratio] 15.3 % 11.6-14.6 [facility] Work Phone: Immature granulocytes/100 WBC (Bld) 0.200 % 0.0-0.9 [facility] Work Phone: Comment on above: IG% - Immature Granu locytes (promyelocytes, myelocytes and metamyelocytes) > 1% indicates that a LEFT SHIFT is Present. MCH (RBC) [Entitic mass] 31.0 pg 27.0-32.0 [facility] Work Phone: Nucleated RBC/100 WBC (Bld) [Ratio] 0 % 0-5 [facility] Work Phone: MCHC Auto (RBC) [Mass/Vol]on 01-31-2022 MCHC (RBC) [Mass/Vol] 33.0 g/dL 32-36 [facility] Work Phone: No Panel Informationon 01-31 Estimated Creatinine Clearance Calc 194.55 ml/min [facility] Work Phone: Estimated GFR (MDRD) Amer 363 mL/min >60 [facility] Work Phone: Comment on above: GFR Calc Estimated GFR (MDRD) Non-Af Amer 300 mL/min >60 [facility] Work Phone: Comment on above: Non- GFR Calc Platelets bldon 01-31-2022 Platelets (Bld) [#/Vol] 303 10*3/uL 150-450 [facility] Work Phone: Serum or plasma calcium yesi urement (mass/volume)on 01-31-2022 Calcium [Mass/Vol] 9.0 mg/dL 8.5-10.1 [facility] Work Phone: Serum or plasma creatinine m easurement (mass/volume)on 01-31-2022 Creatinine [Mass/Vol] 0.32 mg/dL 0.70-1.30 [facility] Work Phone: Comment on above: The validity of the calculated GFR & GFRAA in patients over 70 years has not been determined. Clinical correlation is essential. Serum or plasma urea nitroge n measurement (mass/volume)on 01-31-2022 Urea nitrogen [Mass/Vol] 14 mg/dL 7-18 [facility] Work Phone: Thin prep Papanicolaou smear with manual screeningon 01-31-2022 Thin prep Papanicolaou smear with manual screening 5 5-15 [facility] Work Phone: Absolute lymphocyte counton 01-25-2022 Lymphocytes Auto (Unsp spec) [#/Vol] 0.60 10*3/uL 0.83-4.51 [facility] Work Phone: Basophil percentageon 2021 Basophils/100 WBC (Bld) 0.2 % 0-1 [facility] Work Phone: Chloride [Moles/Vol] 96 mmol/L 98-107 [facility] Work Phone: Eosinophils/100 WBC (Bld) 0.2 % 0-5 [facility] Work Phone: Glucose [Mass/Vol] 109 mg/dL 74-106 [facility] Work Phone: Comment on above: Fasting Glucose resu lt from 100 to 125 mg/dL suggests IMPAIRED HOMEOSTASIS per A.D.A. criteria. Neutrophils (Bld) [#/Vol] 4.4 10*3/uL 2.0-7.7 [facility] Work Phone: Neutrophils/100 WBC (Bld) 74.7 % 47-70 [facility] Work Phone: Potassium [Moles/Vol] 4.3 mmol/L 3.5-5.1 [facility] Work Phone: Sodium [Moles/Vol] 129 mmol/L 136-145 [facility] Work Phone: WBC (Bld) [#/Vol] 5.8 10*3/uL 4.4-11.0 [facility] Work Phone: Blood erythrocytes count (nu mber/volume)on 01-25-2022 RBC (Bld) [#/Vol] 3.25 10*6/uL 4.6-6.2 [facility] Work Phone: Blood hemoglobin measurement (mass/volume)on 01-25-2022 Hemoglobin (Bld) [Mass/Vol] 10.2 g/dL 13.0-16.5 [facility] Work Phone: Blood lymphocytes/100 leukoc yteson 01-25-2022 Lymphocytes/100 WBC (Bld) 10.3 % 19-41 [facility] Work Phone: Blood monocytes/100 leukocyt eson 01-25-2022 Monocytes/100 WBC (Bld) 13.9 % 0-10 [facility] Work Phone: Blood platelet mean volumeon 01-25-2022 Platelet mean volume (Bld) [Entitic vol] 7.9 fL 6.2-12.0 [facility] Work Phone: Determination of erythrocyte mean corpuscular volume (MCV)on 01-25-2022 MCV (RBC) [Entitic vol] 90.2 fL 80-94 [facility] Work Phone: Hematocrit Auto (Bld) [Volum e fraction]on 01-25-2022 Hematocrit (Bld) [Volume fraction] 29.3 % 40-54 [facility] Work Phone: Laboratory - Chemistry and C hemistry - challengeon 01-25-2022 CO2 [Moles/Vol] 28.0 mmol/L 21.0-32.0 [facility] Work Phone: Urea nitrogen/Creatinine [Mass ratio] 43.4 mg/mg 10-20 [facility] Work Phone: Laboratory - Hematology and Cell countson 01-25-2022 Erythrocyte distribution width (RBC) [Entitic vol] 51.0 fL 35.1-43.9 [facility] Work Phone: Erythrocyte distribution width (RBC) [Ratio] 15.5 % 11.6-14.6 [facility] Work Phone: Immature granulocytes/100 WBC (Bld) 0.700 % 0.0-0.9 [facility] Work Phone: Comment on above: IG% - Immature Granu locytes (promyelocytes, myelocytes and metamyelocytes) > 1% indicates that a LEFT SHIFT is Present. MCH (RBC) [Entitic mass] 31.4 pg 27.0-32.0 [facility] Work Phone: Nucleated RBC/100 WBC (Bld) [Ratio] 0 % 0-5 [facility] Work Phone: MCHC Auto (RBC) [Mass/Vol]on 01-25-2022 MCHC (RBC) [Mass/Vol] 34.8 g/dL 32-36 [facility] Work Phone: No Panel Informationon 01-25 Estimated Creatinine Clearance Calc 172.09 ml/min [facility] Work Phone: Estimated GFR (MDRD) Amer 310 mL/min >60 [facility] Work Phone: Comment on above: GFR Calc Estimated GFR (MDRD) Non-Af Amer 256 mL/min >60 [facility] Work Phone: Comment on above: Non- GFR Calc Platelets bldon 01-25-2022 Platelets (Bld) [#/Vol] 298 10*3/uL 150-450 [facility] Work Phone: Serum or plasma calcium yesi urement (mass/volume)on 01-25-2022 Calcium [Mass/Vol] 8.5 mg/dL 8.5-10.1 [facility] Work Phone: Serum or plasma creatinine m easurement (mass/volume)on 01-25-2022 Creatinine [Mass/Vol] 0.37 mg/dL 0.70-1.30 [facility] Work Phone: Comment on above: The validity of the calculated GFR & GFRAA in patients over 70 years has not been determined. Clinical correlation is essential. Serum or plasma urea nitroge n measurement (mass/volume)on 01-25-2022 Urea nitrogen [Mass/Vol] 16 mg/dL 7-18 [facility] Work Phone: Thin prep Papanicolaou smear with manual screeningon 01-25-2022 Thin prep Papanicolaou smear with manual screening 5 5-15 [facility] Work Phone: Absolute lymphocyte counton 01-23-2022 Lymphocytes Auto (Unsp spec) [#/Vol] 0.28 10*3/uL 0.83-4.51 [facility] Work Phone: Basophil percentageon 2021 Chloride [Moles/Vol] 91 mmol/L 98-107 [facility] Work Phone: Glucose [Mass/Vol] 100 mg/dL 74-106 [facility] Work Phone: Comment on above: Fasting Glucose resu lt from 100 to 125 mg/dL suggests IMPAIRED HOMEOSTASIS per A.D.A. criteria. Potassium [Moles/Vol] 4.0 mmol/L 3.5-5.1 [facility] Work Phone: Sodium [Moles/Vol] 123 mmol/L 136-145 [facility] Work Phone: Basophils/100 WBC (Bld) 0.0 % 0-1 [facility] Work Phone: Eosinophils/100 WBC (Bld) 0.0 % 0-5 [facility] Work Phone: Neutrophils (Bld) [#/Vol] 7.7 10*3/uL 2.0-7.7 [facility] Work Phone: Neutrophils/100 WBC (Bld) 94.5 % 47-70 [facility] Work Phone: WBC (Bld) [#/Vol] 8.2 10*3/uL 4.4-11.[address] [facility] [facility]: Blood erythrocytes count (nu mber/volume)on 01-23-2022 RBC (Bld) [#/Vol] 3.18 10*6/uL 4.6-6.2 [facility]: Blood hemoglobin measurement (mass/volume)on 01-23-2022 Hemoglobin (Bld) [Mass/Vol] 9.8 g/dL 13.0-16.5 [facility] Work Phone: Blood lymphocytes/100 leukoc yteson 01-23-2022 Lymphocytes/100 WBC (Bld) 3.4 % 19-41 [facility] Work Phone: Blood manual differential co mment interpretation (narrative result)on 01-23-2022 Manual differential comment Allen (Bld) [Interp] SCANNED [facility] Work Phone: Comment on above: LYMPHOPENIA NOTED Blood monocytes/100 leukocyt eson 01-23-2022 Monocytes/100 WBC (Bld) 1.6 % 0-10 [facility] Work Phone: Blood platelet mean volumeon 01-23-2022 Platelet mean volume (Bld) [Entitic vol] 8.9 fL 6.2-12.0 [facility] Work Phone: Determination of erythrocyte mean corpuscular volume (MCV)on 01-23-2022 MCV (RBC) [Entitic vol] 87.4 fL 80-94 [facility] Work Phone: Hematocrit Auto (Bld) [Volum e fraction]on 01-23-2022 Hematocrit (Bld) [Volume fraction] 27.8 % 40-54 [facility] Work Phone: Laboratory - Chemistry and C hemistry - challengeon 01-23-2022 CO2 [Moles/Vol] 25.0 mmol/L 21.0-32.0 [facility] Work Phone: Urea nitrogen/Creatinine [Mass ratio] 23.1 mg/mg 10-20 [facility] Work Phone: Sodium (U) [Moles/Vol] 42 mmol/L Not Establ. [facility] Work Phone: Laboratory - Hematology and Cell countson 01-23-2022 Erythrocyte distribution width (RBC) [Entitic vol] 46.2 fL 35.1-43.9 [facility] Work Phone: Erythrocyte distribution width (RBC) [Ratio] 14.3 % 11.6-14.6 [facility] Work Phone: Immature granulocytes/100 WBC (Bld) 0.500 % 0.0-0.9 [facility] Work Phone: Comment on above: IG% - Immature Granu locytes (promyelocytes, myelocytes and metamyelocytes) > 1% indicates that a LEFT SHIFT is Present. MCH (RBC) [Entitic mass] 30.8 pg 27.0-32.0 [facility] Work Phone: Nucleated RBC/100 WBC (Bld) [Ratio] 0 % 0-5 [facility] Work Phone: Laboratory - Microbiology an d Antimicrobial susceptibilityon 01-23-2022 SARS-CoV-2 (COVID-19) RNA PEDRO+probe Ql (Unsp spec) Not detected Not Detect [facility] Work Phone: Comment on above: Normal Reference Ran ge: Not DetectedMethod:(RT-PCR) real-time reverse transcriptase PCRLuminex BOO Instrument*The Food and Drug Administration (FDA) has issued an Emergency Use Authorization (EAU) for the BOO SARS-CoV-2 Assay for the rapid detection of the virus that causes COVID-19. This test has been validated, but the FDAs independent review of this validation is pending.*Negative results do not preclude infection and should not be used as the sole basis for treatment or patient management. Optimum specimen types and timing for peak viral levels during infections caused by SARS-CoV-2 have not been determined. Collection of multiple specimens from the same patient may be necessary to detect the virus. The possibility of a false negative result should be considered if the patient has clinical presentation or has had recent exposure. MCHC Auto (RBC) [Mass/Vol]on 01-23-2022 MCHC (RBC) [Mass/Vol] 35.3 g/dL 32-36 [facility] Work Phone: No Panel Informationon 01-23 Estimated Creatinine Clearance Calc 163.56 ml/min [facility] Work Phone: Estimated GFR (MDRD) Amer 291 mL/min >60 [facility] Work Phone: Comment on above: GFR Calc Estimated GFR (MDRD) Non-Af Amer 241 mL/min >60 [facility] Work Phone: Comment on above: Non- GFR Calc Platelets bldon 01-23-2022 Platelets (Bld) [#/Vol] 315 10*3/uL 150-450 [facility] Work Phone: Serum or plasma calcium yesi urement (mass/volume)on 01-23-2022 Calcium [Mass/Vol] 9.0 mg/dL 8.5-10.1 [facility] Work Phone: Serum or plasma creatinine m easurement (mass/volume)on 01-23-2022 Creatinine [Mass/Vol] 0.39 mg/dL 0.70-1.30 [facility] Work Phone: Comment on above: The validity of the calculated GFR & GFRAA in patients over 70 years has not been determined. Clinical correlation is essential. Serum or plasma urea nitroge n measurement (mass/volume)on 01-23-2022 Urea nitrogen [Mass/Vol] 9 mg/dL 7-18 [facility] Work Phone: Thin prep Papanicolaou smear with manual screeningon 01-23-2022 Thin prep Papanicolaou smear with manual screening 7 5-15 [facility] Work Phone: Urine osmolality measurement on 01-23-2022 Osmolality (U) [Osmolality] 229 mOsm/KG >50 [facility] Work Phone: Comment on above: Normal Urine Referen ce Ranges Random: 50 - 1200 mOsm/kg H20 depending on fluid intake Random: >850 mOsm/kg after 12 hour fluid restriction 24 hour: ~300 - 900 mOsm/kg H2O No Panel Informationon 01-22 Thyroid Stimulating Hormone (TSH) 2.09 uIU/mL 0.358-3.74 [facility] Work Phone: Serum or plasma cortisol davey surement (mass/volume)on 01-22-2022 Cortisol [Mass/Vol] 47.00 ug/dL 3.44-22.45 [facility] Work Phone: Comment on above: Adult (AM) 5.27 - 22 .45 ug/dL Adult (PM) 3.44 - 16.76 ug/dLPlease note revised CORTISOL reference range effective 2019. Thin prep Papanicolaou smear with manual screeningon 01-22-2022 Thin prep Papanicolaou smear with manual screening 238 mOsm/KG 275-295 [facility] Work Phone: Absolute lymphocyte counton 01-17-2022 Lymphocytes Auto (Unsp spec) [#/Vol] 0.68 10*3/uL 0.83-4.51 [facility] Work Phone: Basophil percentageon 2021 Basophil percentage 3.5 mg/dL 2.5-4.9 [facility] Work Phone: Basophils/100 WBC (Bld) 0.5 % 0-1 [facility] Work Phone: Chloride [Moles/Vol] 93 mmol/L 98-107 [facility]: Eosinophils/100 WBC (Bld) 0.8 % 0-5 [facility] Work Phone: Glucose [Mass/Vol] 83 mg/dL 74-106 [facility] Work Phone: Neutrophils (Bld) [#/Vol] 4.6 10*3/uL 2.0-7.7 [facility] Work Phone: Neutrophils/100 WBC (Bld) 73.7 % 47-70 [facility] Work Phone: Potassium [Moles/Vol] 3.7 mmol/L 3.5-5.1 [facility] Work Phone: Sodium [Moles/Vol] 130 mmol/L 136-145 [facility] Work Phone: WBC (Bld) [#/Vol] 6.3 10*3/uL 4.4-11.0 [facility] Work Phone: Blood erythrocytes count (nu mber/volume)on 01-17-2022 RBC (Bld) [#/Vol] 3.31 10*6/uL 4.6-6.2 [facility] Work Phone: Blood hemoglobin measurement (mass/volume)on 01-17-2022 Hemoglobin (Bld) [Mass/Vol] 10.3 g/dL 13.0-16.5 [facility] Work Phone: Blood lymphocytes/100 leukoc yteson 01-17-2022 Lymphocytes/100 WBC (Bld) 10.8 % 19-41 [facility] Work Phone: Blood monocytes/100 leukocyt eson 01-17-2022 Monocytes/100 WBC (Bld) 13.6 % 0-10 [facility] Work Phone: Blood platelet mean volumeon 01-17-2022 Platelet mean volume (Bld) [Entitic vol] 8.6 fL 6.2-12.0 [facility] Work Phone: Determination of erythrocyte mean corpuscular volume (MCV)on 01-17-2022 MCV (RBC) [Entitic vol] 91.5 fL 80-94 [facility] Work Phone: Hematocrit Auto (Bld) [Volum e fraction]on 01-17-2022 Hematocrit (Bld) [Volume fraction] 30.3 % 40-54 [facility] Work Phone: Laboratory - Chemistry and C hemistry - challengeon 01-17-2022 CO2 [Moles/Vol] 29.0 mmol/L 21.0-32.0 [facility] Work Phone: Magnesium [Mass/Vol] 1.7 mg/dL 1.6-2.6 [facility] Work Phone: Urea nitrogen/Creatinine [Mass ratio] 21.0 mg/mg 10-20 [facility] Work Phone: Laboratory - Hematology and Cell countson 01-17-2022 Erythrocyte distribution width (RBC) [Entitic vol] 49.4 fL 35.1-43.9 [facility] Work Phone: Erythrocyte distribution width (RBC) [Ratio] 14.8 % 11.6-14.6 [facility] Work Phone: Immature granulocytes/100 WBC (Bld) 0.600 % 0.0-0.9 [facility] Work Phone: Comment on above: IG% - Immature Granu locytes (promyelocytes, myelocytes and metamyelocytes) > 1% indicates that a LEFT SHIFT is Present. MCH (RBC) [Entitic mass] 31.1 pg 27.0-32.0 [facility] Work Phone: Nucleated RBC/100 WBC (Bld) [Ratio] 0 % 0-5 [facility] Work Phone: MCHC Auto (RBC) [Mass/Vol]on 01-17-2022 MCHC (RBC) [Mass/Vol] 34.0 g/dL 32-36 [facility] No Panel Informationon 01-17 Estimated Creatinine Clearance Calc 193.58 ml/min [facility] Work Phone: Estimated GFR (MDRD) Amer 348 mL/min >60 [facility] Work Phone: Comment on above: GFR Calc Estimated GFR (MDRD) Non-Af Amer 288 mL/min >60 [facility] Work Phone: Comment on above: Non- GFR Calc Platelets bldon 01-17-2022 Platelets (Bld) [#/Vol] 350 10*3/uL 150-450 [facility] Work Phone: Serum or plasma calcium yesi urement (mass/volume)on 01-17-2022 Calcium [Mass/Vol] 9.1 mg/dL 8.5-10.1 [facility] Work Phone: Serum or plasma creatinine m easurement (mass/volume)on 01-17-2022 Creatinine [Mass/Vol] 0.33 mg/dL 0.70-1.30 [facility] Work Phone: Comment on above: The validity of the calculated GFR & GFRAA in patients over 70 years has not been determined. Clinical correlation is essential. Serum or plasma urea nitroge n measurement (mass/volume)on 01-17-2022 Urea nitrogen [Mass/Vol] 7 mg/dL 7-18 [facility] Work Phone: Thin prep Papanicolaou smear with manual screeningon 01-17-2022 Thin prep Papanicolaou smear with manual screening 8 5-15 [facility] Work Phone: Tobacco Screening.on 022 Fall risk assessment a) No falls within the last year [facility] Work Phone: Tobacco use status CPHS a) Yes M [facility] Work Phone: Tobacco Screening. Yes [facility] Work Phone: Absolute lymphocyte counton 01-10-2022 Lymphocytes Auto (Unsp spec) [#/Vol] 0.73 10*3/uL 0.83-4.51 [facility] Work Phone: Basophil percentageon 2021 Basophil percentage 3.9 mg/dL 2.5-4.9 [facility] Work [facility]: Basophils/100 WBC (Bld) 0.2 % 0-1 [facility] Work Phone: Chloride [Moles/Vol] 94 mmol/L 98-107 [facility]: Eosinophils/100 WBC (Bld) 0.7 % 0-5 [facility] Work Phone: Glucose [Mass/Vol] 90 mg/dL 74-106 [facility] Work Phone: Neutrophils (Bld) [#/Vol] 4.4 10*3/uL 2.0-7.7 [facility] Work Phone: Neutrophils/100 WBC (Bld) 72.5 % 47-70 [facility] Work Phone: Potassium [Moles/Vol] 3.8 mmol/L 3.5-5.1 [facility] Work [facility]: Sodium [Moles/Vol] 131 mmol/L 136-145 [facility] Work Phone: WBC (Bld) [#/Vol] 6.0 10*3/uL 4.4-11.0 [facility] Work Phone: Blood erythrocytes count (nu mber/volume)on 01-10-2022 RBC (Bld) [#/Vol] 3.34 10*6/uL 4.6-6.2 [facility] Work Phone: Blood hemoglobin measurement (mass/volume)on 01-10-2022 Hemoglobin (Bld) [Mass/Vol] 10.4 g/dL 13.0-16.5 [facility] Work Phone: Blood lymphocytes/100 leukoc yteson 01-10-2022 Lymphocytes/100 WBC (Bld) 12.2 % 19-41 [facility] Work Phone: Blood monocytes/100 leukocyt eson 01-10-2022 Monocytes/100 WBC (Bld) 13.4 % 0-10 [facility] Work Phone: Blood platelet mean volumeon 01-10-2022 Platelet mean volume (Bld) [Entitic vol] 8.0 fL 6.2-12.0 [facility] Work Phone: Determination of erythrocyte mean corpuscular volume (MCV)on 01-10-2022 MCV (RBC) [Entitic vol] 92.2 fL 80-94 [facility] Work Phone: Hematocrit Auto (Bld) [Volum e fraction]on 01-10-2022 Hematocrit (Bld) [Volume fraction] 30.8 % 40-54 [facility] Work Phone: Laboratory - Chemistry and C hemistry - challengeon 01-10-2022 CO2 [Moles/Vol] 29.0 mmol/L 21.0-32.0 [facility] Work Phone: Magnesium [Mass/Vol] 1.9 mg/dL 1.6-2.6 [facility] Work Phone: Urea nitrogen/Creatinine [Mass ratio] 25.3 mg/mg 10- [facility] Work Phone: Laboratory - Hematology and Cell countson 01-10-2022 Erythrocyte distribution width (RBC) [Entitic vol] 48.8 fL 35.1-43.9 [facility] Work Phone: Erythrocyte distribution width (RBC) [Ratio] 14.6 % 11.6-14.6 [facility] Work Phone: Immature granulocytes/100 WBC (Bld) 1.000 % 0.0-0.9 [facility] Work Phone: Comment on above: IG% - Immature Granu locytes (promyelocytes, myelocytes and metamyelocytes) > 1% indicates that a LEFT SHIFT is Present. MCH (RBC) [Entitic mass] 31.1 pg 27.0-32.0 [facility] Work Phone: Nucleated RBC/100 WBC (Bld) [Ratio] 0 % 0-5 [facility] Work Phone: MCHC Auto (RBC) [Mass/Vol]on 01-10-2022 MCHC (RBC) [Mass/Vol] 33.8 g/dL 32-36 [facility] Work Phone: No Panel Informationon 01-10 Estimated Creatinine Clearance Calc 162.02 ml/min [facility] Work Phone: Estimated GFR (MDRD) Amer 286 mL/min >60 [facility] Work Phone: Comment on above: GFR Calc Estimated GFR (MDRD) Non-Af Amer 236 mL/min >60 [facility] Work Phone: Comment on above: Non- GFR Calc Platelets bldon 01-10-2022 Platelets (Bld) [#/Vol] 377 10*3/uL 150-450 [facility] Work Phone: Serum or plasma calcium yesi urement (mass/volume)on 01-10-2022 Calcium [Mass/Vol] 8.5 mg/dL 8.5-10.1 [facility] Work Phone: Serum or plasma creatinine m easurement (mass/volume)on 01-10-2022 Creatinine [Mass/Vol] 0.40 mg/dL 0.70-1.30 [facility] Work Phone: Comment on above: The validity of the calculated GFR & GFRAA in patients over 70 years has not been determined. Clinical correlation is essential. Serum or plasma urea nitroge n measurement (mass/volume)on 01-10-2022 Urea nitrogen [Mass/Vol] 10 mg/dL 7-18 [facility] Work Phone: Thin prep Papanicolaou smear with manual screeningon 01-10-2022 Thin prep Papanicolaou smear with manual screening 8 5-15 [facility] Work Phone: Tobacco Screening.on 022 Fall risk assessment a) No falls within the last year [facility] Work Phone: Tobacco use status CPHS b) No M [facility] Work Phone: Absolute lymphocyte counton 12-18-2021 Lymphocytes Auto (Unsp spec) [#/Vol] 1.35 10*3/uL 0.83-4.51 [facility] Work Phone: Basophil percentageon 2021 Basophils/100 WBC (Bld) 0.3 % 0-1 [facility] Work Phone: Bilirubin [Mass/Vol] 0.30 mg/dL 0.20-1.00 [facility] Work Phone: Comment on above: For patients on eltr ombopag therapy, use of Dimension [place] TBIL is not recommended. Chloride [Moles/Vol] 94 mmol/L 98-107 [facility] Work Phone: Eosinophils/100 WBC (Bld) 0.6 % 0-5 [facility] Work Phone: Glucose [Mass/Vol] 106 mg/dL 74-106 [facility] Work Phone: Comment on above: Fasting Glucose resu lt from 100 to 125 mg/dL suggests IMPAIRED HOMEOSTASIS per A.D.A. criteria. Neutrophils (Bld) [#/Vol] 6.3 10*3/uL 2.0-7.7 [facility] Work Phone: Neutrophils/100 WBC (Bld) 69.8 % 47-70 [facility] Work Phone: Potassium [Moles/Vol] 3.8 mmol/L 3.5-5.1 [facility] Work Phone: Protein [Mass/Vol] 7.2 g/dL 6.4-8.2 [facility] Work Phone: Sodium [Moles/Vol] 129 mmol/L 136-145 [facility] Work Phone: WBC (Bld) [#/Vol] 9.0 10*3/uL 4.4-11.0 [facility] Work Phone: Blood erythrocytes count (nu mber/volume)on 12-18-2021 RBC (Bld) [#/Vol] 3.40 10*6/uL 4.6-6.2 [facility] Work Phone: Blood hemoglobin measurement (mass/volume)on 12-18-2021 Hemoglobin (Bld) [Mass/Vol] 11.0 g/dL 13.0-16.5 [facility] Work Phone: Blood lymphocytes/100 leukoc yteson 12-18-2021 Lymphocytes/100 WBC (Bld) 15.0 % 19-41 [facility] Work Phone: Blood monocytes/100 leukocyt eson 12-18-2021 Monocytes/100 WBC (Bld) 13.7 % 0-10 [facility] Work Phone: Blood platelet mean volumeon 12-18-2021 Platelet mean volume (Bld) [Entitic vol] 8.5 fL 6.2-12.0 [facility] Work Phone: Determination of erythrocyte mean corpuscular volume (MCV)on 12-18-2021 MCV (RBC) [Entitic vol] 91.8 fL 80-94 [facility] Work Phone: Hematocrit Auto (Bld) [Volum e fraction]on 12-18-2021 Hematocrit (Bld) [Volume fraction] 31.2 % 40-54 [facility] Work Phone: Iron measurement (mass/mass) on 12-18-2021 Iron (Unsp spec) [Mass/Mass] 34 ug/dL 65-175 [facility] Laboratory - Chemistry and C hemistry - challengeon 12-18-2021 ALP [Catalytic activity/Vol] 92 U/L 45-117 [facility] Work Phone: ALT [Catalytic activity/Vol] 24 U/L 16-61 [facility] Work Phone: CO2 [Moles/Vol] 30.0 mmol/L 21.0-32.0 [facility] Work Phone: Globulin (S) [Mass/Vol] 4.0 g/dL 2.2-4.2 [facility] Work Phone: Magnesium [Mass/Vol] 2.0 mg/dL 1.6-2.6 [facility] Work Phone: Urea nitrogen/Creatinine [Mass ratio] 18.5 mg/mg 10-20 [facility] Work Phone: Laboratory - Hematology and Cell countson 12-18-2021 Erythrocyte distribution width (RBC) [Entitic vol] 46.4 fL 35.1-43.9 [facility] Work Phone: Erythrocyte distribution width (RBC) [Ratio] 13.8 % 11.6-14.6 [facility] Work Phone: Immature granulocytes/100 WBC (Bld) 0.600 % 0.0-0.9 [facility] Work Phone: Comment on above: IG% - Immature Granu locytes (promyelocytes, myelocytes and metamyelocytes) > 1% indicates that a LEFT SHIFT is Present. MCH (RBC) [Entitic mass] 32.4 pg 27.0-32.0 [facility] Work Phone: Nucleated RBC/100 WBC (Bld) [Ratio] 0 % 0-5 [facility] Work Phone: MCHC Auto (RBC) [Mass/Vol]on 12-18-2021 MCHC (RBC) [Mass/Vol] 35.3 g/dL 32-36 [facility] Work Phone: No Panel Informationon 12-18 Estimated Creatinine Clearance Calc 133.30 ml/min [facility] Work Phone: Estimated GFR (MDRD) Amer 225 mL/min >60 [facility] Work Phone: Comment on above: GFR Calc Estimated GFR (MDRD) Non-Af Amer 186 mL/min >60 [facility] Work Phone: Comment on above: Non- GFR Calc Thyroid Stimulating Hormone (TSH) 5.67 uIU/mL 0.358-3.74 [facility] Total Iron Binding Capacity 286 ug/dL 250-450 [facility] Platelets bldon 12-18-2021 Platelets (Bld) [#/Vol] 413 10*3/uL 150-450 [facility] Work Phone: Serum or plasma albumin yesi urement (mass/volume)on 12-18-2021 Albumin [Mass/Vol] 3.2 g/dL 3.2-5.0 [facility] Work Phone: Serum or plasma albumin/glob ulin mass ratioon 12-18-2021 Albumin/Globulin [Mass ratio] 0.8 {ratio} 0.9-2.4 [facility] Work Phone: Serum or plasma calcium eysi urement (mass/volume)on 12-18-2021 Calcium [Mass/Vol] 8.7 mg/dL 8.5-10.1 [facility] Work Phone: Serum or plasma creatinine m easurement (mass/volume)on 12-18-2021 Creatinine [Mass/Vol] 0.49 mg/dL 0.70-1.30 [facility] Work Phone: Comment on above: The validity of the calculated GFR & GFRAA in patients over 70 years has not been determined. Clinical correlation is essential. Serum or plasma ferritin davey surement (mass/volume)on 12-18-2021 Ferritin [Mass/Vol] 284 ng/mL 26-388 [facility] Serum or plasma iron saturat ion measurement (mass fraction)on 12-18-2021 Iron saturation [Mass fraction] 11.9 % 15.0-55.0 [facility] Serum or plasma urea nitroge n measurement (mass/volume)on 03-28-2022 Urea nitrogen [Mass/Vol] 9 mg/dL 7-18 [facility] Work Phone: Thin prep Papanicolaou smear with manual screeningon 12-18-2021 Thin prep Papanicolaou smear with manual screening 12 U/L 15-37 [facility] Work Phone: Thin prep Papanicolaou smear with manual screening 5 5-15 [facility] Work Phone: Tobacco Screening.on 022 Fall risk assessment a) No falls within the last year [facility] Work Phone: Tobacco use status CPHS b) No M [facility] Work Phone: Absolute lymphocyte counton 12-15-2021 Lymphocytes Auto (Unsp spec) [#/Vol] 0.82 10*3/uL 0.83-4.51 [facility] Work Phone: Basophil percentageon 2021 Basophils/100 WBC (Bld) 0.4 % 0-1 [facility] Work Phone: Eosinophils/100 WBC (Bld) 0.4 % 0-5 [facility] Work Phone: Neutrophils (Bld) [#/Vol] 5.6 10*3/uL 2.0-7.7 [facility] Work Phone: Neutrophils/100 WBC (Bld) 75.7 % 47-70 [facility] Work Phone: WBC (Bld) [#/Vol] 7.4 10*3/uL 4.4-11.0 [facility] Work Phone: Blood erythrocytes count (nu mber/volume)on 12-15-2021 RBC (Bld) [#/Vol] 3.93 10*6/uL 4.6-6.2 [facility] Work Phone: Blood hemoglobin measurement (mass/volume)on 12-15-2021 Hemoglobin (Bld) [Mass/Vol] 12.5 g/dL 13.0-16.5 [facility] Work Phone: Blood lymphocytes/100 leukoc yteson 12-15-2021 Lymphocytes/100 WBC (Bld) 11.1 % 19-41 [facility] Work Phone: Blood monocytes/100 leukocyt eson 12-15-2021 Monocytes/100 WBC (Bld) 11.9 % 0-10 [facility] Work Phone: Blood platelet mean volumeon 12-15-2021 Platelet mean volume (Bld) [Entitic vol] 8.6 fL 6.2-12.0 [facility] Work Phone: Determination of erythrocyte mean corpuscular volume (MCV)on 12-15-2021 MCV (RBC) [Entitic vol] 90.8 fL 80-94 [facility] Work Phone: Hematocrit Auto (Bld) [Volum e fraction]on 12-15-2021 Hematocrit (Bld) [Volume fraction] 35.7 % 40-54 [facility] Work Phone: Laboratory - Hematology and Cell countson 12-15-2021 Erythrocyte distribution width (RBC) [Entitic vol] 45.6 fL 35.1-43.9 [facility] Work Phone: Erythrocyte distribution width (RBC) [Ratio] 13.4 % 11.6-14.6 [facility] Work Phone: Immature granulocytes/100 WBC (Bld) 0.500 % 0.0-0.9 [facility] Work Phone: Comment on above: IG% - Immature Granu locytes (promyelocytes, myelocytes and metamyelocytes) > 1% indicates that a LEFT SHIFT is Present. MCH (RBC) [Entitic mass] 31.8 pg 27.0-32.0 [facility] Work Phone: Nucleated RBC/100 WBC (Bld) [Ratio] 0 % 0-5 [facility] Work Phone: MCHC Auto (RBC) [Mass/Vol]on 12-15-2021 MCHC (RBC) [Mass/Vol] 35.0 g/dL 32-36 [facility]: Platelets bldon 12-15-2021 Platelets (Bld) [#/Vol] 450 10*3/uL 150-450 [facility] Work Phone: Falls Risk Screeningon 12-04 Fall risk assessment a) No falls within the last year [facility] Work Phone: Tobacco use status [facility] b) No M P[facility]tol[facility] Work Phone: Tobacco Screening.on 022 Fall risk assessment a) No falls within the last year [facility]tolaryngol [facility] Work Phone: Tobacco use status [facility] b) No M G-Otolaryngol [facility] Work Phone: Absolute lymphocyte counton 11-20-2021 Lymphocytes Auto (Unsp spec) [#/Vol] 0.53 10*3/uL 0.83-4.51 [facility] Work Phone: Basophil percentageon 2021 Basophils/100 WBC (Bld) 0.2 % 0-1 [facility] Work Phone: Chloride [Moles/Vol] 95 mmol/L 98-107 [facility]: Eosinophils/100 WBC (Bld) 0.8 % 0-5 [facility] Work Phone: Glucose [Mass/Vol] 151 mg/dL 74-106 [facility] Work Phone: Comment on above: Fasting Glucose resu lt greater than or equal to 126 mg/dL suggests DIABETES MELLITUS per A.D.A. criteria. Neutrophils (Bld) [#/Vol] 6.8 10*3/uL 2.0-7.7 [facility] Work Phone: Neutrophils/100 WBC (Bld) 81.2 % 47-70 [facility] Work Phone: Potassium [Moles/Vol] 4.3 mmol/L 3.5-5.1 [place] Work Phone: Sodium [Moles/Vol] 130 mmol/L 136-145 [facility] Work Phone: WBC (Bld) [#/Vol] 8.4 10*3/uL 4.4-11.0 [facility] Work Phone: Blood erythrocytes count (nu mber/volume)on 11-20-2021 RBC (Bld) [#/Vol] 3.07 10*6/uL 4.6-6.2 [facility]: Blood hemoglobin measurement (mass/volume)on 11-20-2021 Hemoglobin (Bld) [Mass/Vol] 10.0 g/dL 13.0-16.5 [facility] Work Phone: Blood lymphocytes/100 leukoc yteson 11-20-2021 Lymphocytes/100 WBC (Bld) 6.3 % 19-41 [facility] Work Phone: Blood monocytes/100 leukocyt eson 11-20-2021 Monocytes/100 WBC (Bld) 10.4 % 0-10 [facility] Work Phone: Blood platelet mean volumeon 11-20-2021 Platelet mean volume (Bld) [Entitic vol] 9.3 fL 6.2-12.0 [facility] Work Phone: Determination of erythrocyte mean corpuscular volume (MCV)on 11-20-2021 MCV (RBC) [Entitic vol] 93.5 fL 80-94 [facility] Work Phone: Hematocrit Auto (Bld) [Volum e fraction]on 11-20-2021 Hematocrit (Bld) [Volume fraction] 28.7 % 40-54 [facility] Work Phone: Laboratory - Chemistry and C hemistry - challengeon 11-20-2021 CO2 [Moles/Vol] 28.0 mmol/L 21.0-32.0 [facility] Work Phone: Cobalamin (Vitamin B12) [Mass/Vol] 486 pg/mL 211-911 [facility] Work Phone: Urea nitrogen/Creatinine [Mass ratio] 33.2 mg/mg 10-20 [facility] Work Phone: Laboratory - Hematology and Cell countson 11-20-2021 Erythrocyte distribution width (RBC) [Entitic vol] 48.7 fL 35.1-43.9 [facility] Work Phone: Erythrocyte distribution width (RBC) [Ratio] 14.2 % 11.6-14.6 [facility] Work Phone: Immature granulocytes/100 WBC (Bld) 1.100 % 0.0-0.9 [facility] Work Phone: Comment on above: IG% - Immature Granu locytes (promyelocytes, myelocytes and metamyelocytes) > 1% indicates that a LEFT SHIFT is Present. MCH (RBC) [Entitic mass] 32.6 pg 27.0-32.0 [facility] Work Phone: Nucleated RBC/100 WBC (Bld) [Ratio] 0 % 0-5 [facility] Work Phone: MCHC Auto (RBC) [Mass/Vol]on 11-20-2021 MCHC (RBC) [Mass/Vol] 34.8 g/dL 32-36 [facility] Work Phone: No Panel Informationon 11-20 Estimated GFR (MDRD) Amer 290 mL/min >60 [facility] Work Phone: Comment on above: GFR Calc Estimated GFR (MDRD) Non-Af Amer 240 mL/min >60 [facility] Work Phone: Comment on above: Non- GFR Calc Thyroid Stimulating Hormone (TSH) 32.90 uIU/mL 0.358-3.74 [facility] Work Phone: Platelets bldon 11-20-2021 Platelets (Bld) [#/Vol] 614 10*3/uL 150-450 [facility] Work Phone: Serum or plasma calcium yesi urement (mass/volume)on 11-20-2021 Calcium [Mass/Vol] 8.2 mg/dL 8.5-10.1 [facility] Work Phone: Serum or plasma creatinine m easurement (mass/volume)on 11-20-2021 Creatinine [Mass/Vol] 0.39 mg/dL 0.70-1.30 [facility] Work Phone: Comment on above: The validity of the calculated GFR & GFRAA in patients over 70 years has not been determined. Clinical correlation is essential. Serum or plasma transthyreti n measurement (mass/volume)on 11-20-2021 Prealbumin [Mass/Vol] 20.9 mg/dL 20.0-40.0 [facility] Work Phone: Serum or plasma urea nitroge n measurement (mass/volume)on 11-20-2021 Urea nitrogen [Mass/Vol] 13 mg/dL 7-18 [facility] Work Phone: Thin prep Papanicolaou smear with manual screeningon 11-20-2021 Thin prep Papanicolaou smear with manual screening 7 5-15 [facility] Work Phone: Coronavirus 2019 RNA by PCR, Screening Asymptomticon 11-17-2021 Coronavirus 2019 RNA by PCR, Screening Asymptomtic Not detected Normal See Below MG-Otolaryngol [facility]amanda-[facility] Work Phone: Comment on above: SOURCE: Nasal, Nasop haryngealReference Range: Not Detected.This test has received FDA Emergency Use Authorization (EUA) and has been verified by [facility] ([facility]). This test is only authorized for the duration of time that circumstances exist to justify the authorization of the emergency use of in vitro diagnostic tests for the detection of SARS-CoV-2 virus and/or diagnosis of COVID-19 infection under section 564(b)(1) of the Act, 21 U.S.C. 360bbb-3(b)(1), unless the authorization is terminated or revoked sooner. [facility] is certified under CLIA-88 as qualified to perform high complexity testing. Testing is performed in the [facility] located at [address] [place] [address].SARS-CoV-2/Flu/RSV Multiplex Test: Fact sheet for providers: https://www.fda.gov/media/223668/downloadFact sheet for patients: https://www.fda.gov/media/993231/download Renal Function Panelon 11-17 Albumin BCP dye [Mass/Vol] 3.1 g/dL below low threshold 3.4 - 5.0 [facility] Work Phone: Anion gap [Moles/Vol] 12 mmol/L 10 - 20 [facility] Work Phone: Calcium [Mass/Vol] 8.7 mg/dL 8.6 - 10.6 [facility] laryngol [facility] Work Phone: Chloride [Moles/Vol] 96 mmol/L below low threshold 98 - 107 [facility] Work Phone: CO2 [Moles/Vol] 29 mmol/L 21 - 32 [facility]Otolar yngol [facility]gy[facility] Work Phone: Creatinine [Mass/Vol] 0.34 mg/dL below low threshold See Below [facility] Work Phone: Comment on above: Reference Range: 0.5 0 - 1.30 Glucose [Mass/Vol] 78 mg/dL 74 - 99 [facility] laryngol [facility] Work Phone: Phosphate [Mass/Vol] 3.8 mg/dL 2.5 - 4.9 [facility]ol [facility] Work Phone: Comment on above: The performance adryan acteristics of phosphorus testing in heparinized plasma have been validated by the individual laboratory site where testing is performed. Testing on heparinized plasma is not approved by the FDA; however, such approval is not necessary. Potassium [Moles/Vol] 4.8 mmol/L 3.5 - 5.3 [facility] Otolaryngol [facility] Work Phone: Sodium [Moles/Vol] 132 mmol/L below low threshold 136 - 145 [facility] Work Phone: Urea nitrogen [Mass/Vol] 11 mg/dL 6 - 23 [facility] Work Phone: Renal Function Panel >90 >90 [facility]-O tolaryngol ogBoxed-[place] Work Phone: Comment on above: CALCULATIONS OF JORGE MATED GFR ARE PERFORMED USING THE 2020 CKD-EPI STUDY REFIT EQUATION WITHOUT THE RACE VARIABLE FOR THE IDMS-TRACEABLE CREATININE METHODS.https://jasn.asnjournals.org/content/early/ ASN.4367638607 Vitamin D 25-Hydroxyon 11-17 25-hydroxyvitamin D3 [Mass/Vol] 23 ng/mL Abnormal MG-Otolaryngol [facility] Work Phone: Comment on above: .DEFICIENCY: < 20 NG /MLINSUFFICIENCY: 20-29 NG/MLSUFFICIENCY: 30-100 NG/MLTHIS ASSAY ACCURATELY QUANTIFIES THE SUM OFVITAMIN D3, 25-HYDROXY AND VIT D2,25-HYDROXY. Laboratory - Hematology and Cell countson 11-16-2021 Erythrocyte distribution width (RBC) [Ratio] 14.7 % above high threshold See Below [facility] Work Phone: Comment on above: Reference Range: 11. 5 - 14.5 Hematocrit (Bld) [Volume fraction] 32.3 % below low threshold See Below [facility] Work Phone: Comment on above: Reference Range: 41. 0 - 52.0 Hemoglobin (Bld) [Mass/Vol] 10.5 g/dL below low threshold See Below [facility] Work Phone: Comment on above: Reference Range: 13. 5 - 17.5 MCHC (RBC) [Mass/Vol] 32.5 g/dL See Below [facility]- Otolaryngol [facility] Work Phone: Comment on above: Reference Range: 32. 0 - 36.0 MCV (RBC) [Entitic vol] 99 fL 80 - 100 M G-Otolaryngol [facility] Work Phone: Platelets (Bld) [#/Vol] 560 10*3/uL above hi gh threshold 150 - 450 [facility] Work Phone: RBC (Bld) [#/Vol] 3.27 {x10E12/L} below low threshold See Below [facility]tolaryngol [facility] Work Phone: Comment on above: Reference Range: 4.5 0 - 5.90 WBC (Bld) [#/Vol] 6.6 10*3/uL 4.4 - 11.3 MG-[facility]ik[facility] laryngol ogy[facility] Work Phone: Magnesium, Serumon 2 Magnesium [Mass/Vol] 1.97 mg/dL See Below MG-O tolaryngol ogy[facility] Work Phone: Comment on above: Reference Range: 1.6 0 - 2.40 No Panel Informationon 11-16 0.0 {/100_WBC} 0.0-0.0 [facility]-Otolary ngol ogy[facility] Work Phone: Renal Function Panelon 11-16 Albumin BCP dye [Mass/Vol] 2.9 g/dL below low threshold 3.4 - 5.0 [facility] Work Phone: Anion gap [Moles/Vol] 13 mmol/L 10 - 20 [facility]- [facility]ol[facility]ol [facility] Work Phone: Calcium [Mass/Vol] 8.1 mg/dL below low threshold 8.6 - 10.6 [facility] Work Phone: Chloride [Moles/Vol] 97 mmol/L below low threshold 98 - 107 [facility] Work Phone: CO2 [Moles/Vol] 26 mmol/L 21 - 32 MG-Otolar yngol ogy[facility] Work Phone: Creatinine [Mass/Vol] 0.32 mg/dL below low threshold See Below [facility]ol [facility] Work Phone: Comment on above: Reference Range: 0.5 0 - 1.30 Glucose [Mass/Vol] 96 mg/dL 74 - 99 [facility] laryngol [facility] Work Phone: Phosphate [Mass/Vol] 3.8 mg/dL 2.5 - 4.9 [facility] tolaryngol [facility] Work Phone: Comment on above: The performance adryan acteristics of phosphorus testing in heparinized plasma have been validated by the individual laboratory site where testing is performed. Testing on heparinized plasma is not approved by the FDA; however, such approval is not necessary. Potassium [Moles/Vol] 4.9 mmol/L 3.5 - 5.3 [facility]- Otolaryngol [facility] Work Phone: Sodium [Moles/Vol] 131 mmol/L below low threshold 136 - 145 [facility] Work Phone: Urea nitrogen [Mass/Vol] 12 mg/dL 6 - 23 [facility]ol [facility] Work Phone: Renal Function Panel >90 >90 [facility] tolaryngol ogy-[place] Work Phone: Comment on above: CALCULATIONS OF JORGE MATED GFR ARE PERFORMED USING THE 2020 CKD-EPI STUDY REFIT EQUATION WITHOUT THE RACE VARIABLE FOR THE IDMS-TRACEABLE CREATININE METHODS.https://jasn.asnjournals.org/content// ASN.4620251683 Renal Function Panelon 11-15 Albumin BCP dye [Mass/Vol] 3.2 g/dL below low threshold 3.4 - 5.0 [facility]ol [facility] Work Phone: Anion gap [Moles/Vol] 14 mmol/L 10 - 20 [facility]- [facility]olaryngol [facility] Work Phone: Calcium [Mass/Vol] 8.3 mg/dL below low threshold 8.6 - 10.6 [facility] Work Phone: Chloride [Moles/Vol] 99 mmol/L 98 - 107 [facility] tolaryngol [facility] Work Phone: CO2 [Moles/Vol] 23 mmol/L 21 - 32 MG-Otolar yngol ogy[facility] Work Phone: Creatinine [Mass/Vol] 0.28 mg/dL below low threshold See Below [facility]ol [facility] Work Phone: Comment on above: Reference Range: 0.5 0 - 1.30 Glucose [Mass/Vol] 102 mg/dL above high threshold 74 - 99 [facility]ol [facility] Work Phone: Phosphate [Mass/Vol] 3.8 mg/dL 2.5 - 4.9 [facility]ol [facility] Work Phone: Comment on above: The performance adryan acteristics of phosphorus testing in heparinized plasma have been validated by the individual laboratory site where testing is performed. Testing on heparinized plasma is not approved by the FDA; however, such approval is not necessary.MILD HEMOLYSIS DETECTED. The result may be falsely elevated due tohemolysis or other interferents. Clinical correlation is recommended.Repeat testing may be considered. Potassium [Moles/Vol] 5.5 mmol/L above high threshold 3.5 - 5.3 [facility] Work Phone: Comment on above: MILD HEMOLYSIS DETEC ISABELL. The result may be falsely elevated due tohemolysis or other interferents. Clinical correlation is recommended.Repeat testing may be considered. Sodium [Moles/Vol] 130 mmol/L below low threshold 136 - 145 [facility] Work Phone: Urea nitrogen [Mass/Vol] 14 mg/dL 6 - 23 [facility]ol [facility] Work Phone: Renal Function Panel >90 >90 [facility] tolaryngol [facility] Work Phone: Comment on above: CALCULATIONS OF JORGE MATED GFR ARE PERFORMED USING THE 2020 CKD-EPI STUDY REFIT EQUATION WITHOUT THE RACE VARIABLE FOR THE IDMS-TRACEABLE CREATININE METHODS.https://jasn.asnjournals.org/content/early/ ASN.4305203114 Laboratory - Chemistry and C hemistry - challengeon 11-14-2021 Creatinine (U) [Mass/Vol] 48.6 mg/dL See Below [facility]tolaryngol [facility] Work Phone: Comment on above: Reference Range: 20. 0 - 370.0 Osmolality (U) [Osmolality] 474 mosm/kg 200 - 1200 [facility] Work Phone: Potassium (U) [Moles/Vol] 21 mmol/L See Below [facility]tol[facility]ol [facility] Work Phone: Comment on above: Reference Range: Not Established Potassium/Creatinine (U) [Molar ratio] 43 {mmol/g_Creat} See Below MG-Otolaryng ol [facility]gy[facility] Work Phone: Comment on above: Reference Range: Not Established Sodium (U) [Moles/Vol] 79 mmol/L See Below [facility] -Otolaryngol [facility] Work Phone: Comment on above: Reference Range: Not Established Sodium/Creatinine (U) [Ratio] 163 {mmol/g_Creat} See Below [employer] [employer] [facility] Work Phone: Comment on above: Reference Range: Not Established Urea nitrogen (U) [Mass/Vol] 627 mg/dL See Below [facility]tolaryngol [employer] [facility] Work Phone: Comment on above: Reference Range: Not Established Urea/Creatinine (U) [Molar ratio] 12.9 {g/g_Creat} See Below [facility]tolaryng[facility] [employer] [facility] Work Phone: Comment on above: Reference Range: Not Established Laboratory - Hematology and Cell countson 11-14-2021 Erythrocyte distribution width (RBC) [Ratio] 14.7 % above high threshold See Below [employer] [employer] [facility] Work Phone: Comment on above: Reference Range: 11. 5 - 14.5 Hematocrit (Bld) [Volume fraction] 34.2 % below low threshold See Below [facility]tolaryngol [employer] [facility] Work Phone: Comment on above: Reference Range: 41. 0 - 52.0 Hemoglobin (Bld) [Mass/Vol] 11.3 g/dL below low threshold See Below [facility]ol [place] Work Phone: Comment on above: Reference Range: 13. 5 - 17.5 MCHC (RBC) [Mass/Vol] 33.0 g/dL See Below [facility]- [facility]ol[facility] [employer] [facility] Work Phone: Comment on above: Reference Range: 32. 0 - 36.0 MCV (RBC) [Entitic vol] 97 fL 80 - 100 M [facility]tol[facility] [employer] [facility] Work Phone: Platelets (Bld) [#/Vol] 421 10*3/uL 150 - 450 MG-Otolaryngol [place] Work Phone: RBC (Bld) [#/Vol] 3.53 {x10E12/L} below low threshold See Below [facility]tolaryngol [facility] Work Phone: Comment on above: Reference Range: 4.5 0 - 5.90 WBC (Bld) [#/Vol] 8.0 10*3/uL 4.4 - 11.3 MG-[facility]ik[facility] laryngol ogy[facility] Work Phone: Magnesium, Serumon 2 Magnesium [Mass/Vol] 1.93 mg/dL See Below [facility]-O tolaryngol ogy-[place] Work Phone: Comment on above: Reference Range: 1.6 0 - 2.40 No Panel Informationon 11-14 128 {mmol/g_Creat} 23 - 275 MG-Aniket laryngol ogy-[place] Work Phone: 62 mmol/L See Below [facility]Otolaryngol [facility] Work Phone: Comment on above: Reference Range: Not Established 0.0 {/100_WBC} 0.0-0.0 MG-Otolary ngol ogy-[place] Work Phone: Renal Function Panelon 11-14 Albumin BCP dye [Mass/Vol] 2.7 g/dL below low threshold 3.4 - 5.0 [facility]tolaryngol [facility] Work Phone: Anion gap [Moles/Vol] 13 mmol/L 10 - 20 [facility]- Otol[facility]ol [facility] Work Phone: Calcium [Mass/Vol] 7.7 mg/dL below low threshold 8.6 - 10.6 [facility]ol [facility] Work Phone: Chloride [Moles/Vol] 98 mmol/L 98 - 107 [facility] tolaryngol ogy[facility] Work Phone: CO2 [Moles/Vol] 23 mmol/L 21 - 32 MG-Otolar yngol ogy-[place] Work Phone: Creatinine [Mass/Vol] 0.33 mg/dL below low threshold See Below [facility]-Otolaryngol [facility] Work Phone: Comment on above: Reference Range: 0.5 0 - 1.30 Glucose [Mass/Vol] 109 mg/dL above high threshold 74 - 99 [facility]tolaryngol [facility] Work Phone: Phosphate [Mass/Vol] 3.4 mg/dL 2.5 - 4.9 [facility] tolaryngol [facility] Work Phone: Comment on above: The performance adryan acteristics of phosphorus testing in heparinized plasma have been validated by the individual laboratory site where testing is performed. Testing on heparinized plasma is not approved by the FDA; however, such approval is not necessary. Potassium [Moles/Vol] 4.2 mmol/L 3.5 - 5.3 MG- Otolaryngol [facility] Work Phone: Sodium [Moles/Vol] 130 mmol/L below low threshold 136 - 145 [facility]tolaryngol [facility] Work Phone: Urea nitrogen [Mass/Vol] 15 mg/dL 6 - 23 [facility]tol[facility]ol [facility] Work Phone: Renal Function Panel >90 >90 MG-O tolaryngol ogy-[place] Work Phone: Comment on above: CALCULATIONS OF JORGE MATED GFR ARE PERFORMED USING THE 2020 CKD-EPI STUDY REFIT EQUATION WITHOUT THE RACE VARIABLE FOR THE IDMS-TRACEABLE CREATININE METHODS.https://jasn.asnjournals.org/content// ASN.3962781817 Laboratory - Chemistry and C hemistry - challengeon 11-13-2021 Glucose [Mass/Vol] 83 mg/dL 74 - 99 [facility] laryngol ogy-[facility] Work Phone: Laboratory - Hematology and Cell countson 11-13-2021 Erythrocyte distribution width (RBC) [Ratio] 14.5 % See Below [facility]-Otolaryngol [facility] [facility] Work Phone: Comment on above: Reference Range: 11. 5 - 14.5 Hematocrit (Bld) [Volume fraction] 32.7 % below low threshold See Below [facility]-Otolaryngol [facility] Work Phone: Comment on above: Reference Range: 41. 0 - 52.0 Hemoglobin (Bld) [Mass/Vol] 11.1 g/dL below low threshold See Below [facility]-Otolaryngol o[facility] [facility] Work Phone: Comment on above: Reference Range: 13. 5 - 17.5 MCHC (RBC) [Mass/Vol] 33.9 g/dL See Below MG- Otolaryngol o[facility] Work Phone: Comment on above: Reference Range: 32. 0 - 36.0 MCV (RBC) [Entitic vol] 95 fL 80 - 100 M [facility]tolaryngol [employer] [facility] Work Phone: Platelets (Bld) [#/Vol] 381 10*3/uL 150 - 450 MG-Otolaryngol [facility]-[place] Work Phone: RBC (Bld) [#/Vol] 3.46 {x10E12/L} below low threshold See Below MG-Otolaryngol ogy-[place] Work Phone: Comment on above: Reference Range: 4.5 0 - 5.90 WBC (Bld) [#/Vol] 9.3 10*3/uL 4.4 - 11.3 MG-Aniket laryngol [facility] Work Phone: Magnesium, Serumon Magnesium [Mass/Vol] 1.96 mg/dL See Below MG-O tolaryngol ogy-[place] Work Phone: Comment on above: Reference Range: 1.6 0 - 2.40 No Panel Informationon 11-13 0.0 {/100_WBC} 0.0-0.0 MG-Otolary ngol ogy-[place] Work Phone: Radiologyon 11-13-2021 XR Chest Single view Normal MG-O tolaryngol ogy-[place] Work Phone: Renal Function Panelon 11-13 Albumin BCP dye [Mass/Vol] 2.8 g/dL below low threshold 3.4 - 5.0 MG-Otolaryngol [facility] Work Phone: Anion gap [Moles/Vol] 12 mmol/L 10 - 20 MG- Otolaryngol o[facility] Work Phone: Calcium [Mass/Vol] 7.9 mg/dL below low threshold 8.6 - 10.6 MG-Otolaryngol [facility] Work Phone: Chloride [Moles/Vol] 98 mmol/L 98 - 107 MG-O tolaryngol ogy-[place] Work Phone: CO2 [Moles/Vol] 26 mmol/L 21 - 32 MG-Otolar yngol ogy-[place] Work Phone: Creatinine [Mass/Vol] 0.32 mg/dL below low threshold See Below [facility]-Otolaryngol [facility] Work Phone: Comment on above: Reference Range: 0.5 0 - 1.30 Glucose [Mass/Vol] 94 mg/dL 74 - 99 [facility] laryngol ogy-[facility] Work Phone: Phosphate [Mass/Vol] 3.4 mg/dL 2.5 - 4.9 MG-O tolaryngol ogy-[place] Work Phone: Comment on above: The performance ardyan acteristics of phosphorus testing in heparinized plasma have been validated by the individual laboratory site where testing is performed. Testing on heparinized plasma is not approved by the FDA; however, such approval is not necessary. Potassium [Moles/Vol] 4.6 mmol/L 3.5 - 5.3 MG- Otolaryngol ogy-[place] Work Phone: Sodium [Moles/Vol] 131 mmol/L below low threshold 136 - 145 MG-Otolaryngol [facility] Work Phone: Urea nitrogen [Mass/Vol] 11 mg/dL 6 - 23 MG-Otolaryngol ogy[facility] Work Phone: Renal Function Panel >90 >90 MG-O tolaryngol ogy-[place] Work Phone: Comment on above: CALCULATIONS OF JORGE MATED GFR ARE PERFORMED USING THE 2020 CKD-EPI STUDY REFIT EQUATION WITHOUT THE RACE VARIABLE FOR THE IDMS-TRACEABLE CREATININE METHODS.https://jasn.asnjournals.org/content// ASN.2409331247 Laboratory - Chemistry and C hemistry - challengeon 11-12-2021 Glucose [Mass/Vol] 160 mg/dL above high threshold 74 - 99 MG-Otolaryngol ogy[facility] Work Phone: Glucose [Mass/Vol] 100 mg/dL above high threshold 74 - 99 MG-Otolaryngol ogy-[facility] Work Phone: Glucose [Mass/Vol] 69 mg/dL below low threshold 74 - 99 MG-Otolaryngol [facility] Work Phone: Glucose [Mass/Vol] 120 mg/dL above high threshold 74 - 99 [facility]-Otolaryngol [facility] Work Phone: Laboratory - Hematology and Cell countson 11-12-2021 Erythrocyte distribution width (RBC) [Ratio] 14.4 % See Below [facility]-Otolaryngol [facility] Work Phone: Comment on above: Reference Range: 11. 5 - 14.5 Hematocrit (Bld) [Volume fraction] 30.4 % below low threshold See Below [facility]-Otolaryngol [facility] Work Phone: Comment on above: Reference Range: 41. 0 - 52.0 Hemoglobin (Bld) [Mass/Vol] 10.4 g/dL below low threshold See Below [facility]-Otolaryngol [facility] Work Phone: Comment on above: Reference Range: 13. 5 - 17.5 MCHC (RBC) [Mass/Vol] 34.2 g/dL See Below MG- Otolaryngol ogy-[place] Work Phone: Comment on above: Reference Range: 32. 0 - 36.0 MCV (RBC) [Entitic vol] 95 fL 80 - 100 M G-Otolaryngol ogy[facility] [facility] Work Phone: Platelets (Bld) [#/Vol] 331 10*3/uL 150 - 450 MG-Otolaryngol ogy-[place] Work Phone: RBC (Bld) [#/Vol] 3.21 {x10E12/L} below low threshold See Below [facility]-Otolaryngol ogy-[place] Work Phone: Comment on above: Reference Range: 4.5 0 - 5.90 WBC (Bld) [#/Vol] 5.9 10*3/uL 4.4 - 11.3 [facility] laryngol ogy-[facility] Work Phone: Magnesium, Serumon 2 Magnesium [Mass/Vol] 1.90 mg/dL See Below MG-O tolaryngol ogy-[facility] Work Phone: Comment on above: Reference Range: 1.6 0 - 2.40 No Panel Informationon 11-12 0.0 {/100_WBC} 0.0-0.0 MG-Otolary ngol ogy-[place] Work Phone: Renal Function Panelon 11-12 Albumin BCP dye [Mass/Vol] 2.6 g/dL below low threshold 3.4 - 5.0 MG-Otolaryngol [facility] [facility] Work Phone: Anion gap [Moles/Vol] 12 mmol/L 10 - 20 MG- Otolaryngol ogy[facility] [facility] Work Phone: Calcium [Mass/Vol] 7.6 mg/dL below low threshold 8.6 - 10.6 MG-Otolaryngol [facility]gy-[place] Work Phone: Chloride [Moles/Vol] 101 mmol/L 98 - 107 [facility] tolaryngol ogy[facility] Work Phone: CO2 [Moles/Vol] 26 mmol/L 21 - 32 MG-Otolar yngol ogy-[facility] Work Phone: Creatinine [Mass/Vol] 0.27 mg/dL below low threshold See Below [facility]-Otolaryngol ogy-[place] Work Phone: Comment on above: Reference Range: 0.5 0 - 1.30 Glucose [Mass/Vol] 99 mg/dL 74 - 99 [facility] laryngol [facility]gy-[facility] Work Phone: Phosphate [Mass/Vol] 2.6 mg/dL 2.5 - 4.9 MG-[facility] tolaryngol [facility]gy[facility] Work Phone: Comment on above: The performance adryan acteristics of phosphorus testing in heparinized plasma have been validated by the individual laboratory site where testing is performed. Testing on heparinized plasma is not approved by the FDA; however, such approval is not necessary. Potassium [Moles/Vol] 4.0 mmol/L 3.5 - 5.3 MG- Otolaryngol [facility] Work Phone: Sodium [Moles/Vol] 135 mmol/L below low threshold 136 - 145 [facility]tol[facility]ol [facility] Work Phone: Urea nitrogen [Mass/Vol] 11 mg/dL 6 - 23 [facility] Work Phone: Renal Function Panel >90 >90 MG-O tolaryngol [facility] Work Phone: Comment on above: CALCULATIONS OF JORGE MATED GFR ARE PERFORMED USING THE 2020 CKD-EPI STUDY REFIT EQUATION WITHOUT THE RACE VARIABLE FOR THE IDMS-TRACEABLE CREATININE METHODS.https://jasn.asnjournals.org/content// ASN.1596649526 Laboratory - Chemistry and C hemistry - challengeon 11-11-2021 Glucose [Mass/Vol] 154 mg/dL above high threshold 74 - 99 [facility] Work Phone: Glucose [Mass/Vol] 108 mg/dL above high threshold 74 - 99 [facility]ol [facility] Work Phone: Glucose [Mass/Vol] 140 mg/dL above high threshold 74 - 99 [facility] Work Phone: Glucose [Mass/Vol] 187 mg/dL above high threshold 74 - 99 [facility] Work Phone: Laboratory - Hematology and Cell countson 11-11-2021 Erythrocyte distribution width (RBC) [Ratio] 14.0 % See Below MG-[facility]tol[facility]ol [facility] Work Phone: Comment on above: Reference Range: 11. 5 - 14.5 Hematocrit (Bld) [Volume fraction] 29.5 % below low threshold See Below [facility]ol [facility] Work Phone: Comment on above: Reference Range: 41. 0 - 52.0 Hemoglobin (Bld) [Mass/Vol] 9.9 g/dL below low threshold See Below [facility] Work Phone: Comment on above: Reference Range: 13. 5 - 17.5 MCHC (RBC) [Mass/Vol] 33.6 g/dL See Below MG- [facility]ol [facility] Work Phone: Comment on above: Reference Range: 32. 0 - 36.0 MCV (RBC) [Entitic vol] 96 fL 80 - 100 M G-[facility]tol[facility]ol [facility] Work Phone: Platelets (Bld) [#/Vol] 308 10*3/uL 150 - 450 [facility]ol [facility] Work Phone: RBC (Bld) [#/Vol] 3.06 {x10E12/L} below low threshold See Below [facility]ol [facility] Work Phone: Comment on above: Reference Range: 4.5 0 - 5.90 WBC (Bld) [#/Vol] 11.2 10*3/uL 4.4 - 11.3 MG-Ot olaryngol [facility] Work Phone: Magnesium, Serumon Magnesium [Mass/Vol] 1.90 mg/dL See Below MG-O [facility]laryngol [facility] Work Phone: Comment on above: Reference Range: 1.6 0 - 2.40 No Panel Informationon 11-11 0.0 {/100_WBC} 0.0-0.0 MG-Otolary ngol [facility]gy[facility] Work Phone: Radiologyon 11-11-2021 XR Chest Single view Normal MG-O [facility]ol [facility] Work Phone: Renal Function Panelon 11-11 Albumin BCP dye [Mass/Vol] 2.4 g/dL below low threshold 3.4 - 5.0 MG-[facility]ol [facility] Work Phone: Anion gap [Moles/Vol] 11 mmol/L 10 - 20 MG- [facility] Work Phone: Calcium [Mass/Vol] 7.5 mg/dL below low threshold 8.6 - 10.6 [facility] Work Phone: Chloride [Moles/Vol] 98 mmol/L 98 - 107 [facility]ol [facility] Work Phone: CO2 [Moles/Vol] 28 mmol/L 21 - 32 MG-Otolar yngol [facility]gy[facility] Work Phone: Creatinine [Mass/Vol] 0.20 mg/dL below low threshold See Below [facility] Work Phone: Comment on above: Reference Range: 0.5 0 - 1.30 Glucose [Mass/Vol] 115 mg/dL above high threshold 74 - 99 [facility] Work Phone: Phosphate [Mass/Vol] 2.6 mg/dL 2.5 - 4.9 [facility]ol [facility] Work Phone: Comment on above: The performance adryan acteristics of phosphorus testing in heparinized plasma have been validated by the individual laboratory site where testing is performed. Testing on heparinized plasma is not approved by the FDA; however, such approval is not necessary. Potassium [Moles/Vol] 3.7 mmol/L 3.5 - 5.3 MG- [facility]ol [facility] Work Phone: Sodium [Moles/Vol] 133 mmol/L below low threshold 136 - 145 [facility] Work Phone: Urea nitrogen [Mass/Vol] 10 mg/dL 6 - 23 [facility] Work Phone: Renal Function Panel >90 >90 [facility]ol [facility] Work Phone: Comment on above: CALCULATIONS OF JORGE MATED GFR ARE PERFORMED USING THE 2020 CKD-EPI STUDY REFIT EQUATION WITHOUT THE RACE VARIABLE FOR THE IDMS-TRACEABLE CREATININE METHODS.https://jasn.asnjournals.org/content// ASN.6055734395 Laboratory - Chemistry and C hemistry - challengeon 11-10-2021 Glucose [Mass/Vol] 211 mg/dL above high threshold 74 - 99 [facility]ol [facility] Work Phone: Laboratory - Hematology and Cell countson 11-10-2021 Erythrocyte distribution width (RBC) [Ratio] 14.3 % See Below [facility]ol [facility] Work Phone: Comment on above: Reference Range: 11. 5 - 14.5 Hematocrit (Bld) [Volume fraction] 30.0 % below low threshold See Below [facility] Work Phone: Comment on above: Reference Range: 41. 0 - 52.0 Hemoglobin (Bld) [Mass/Vol] 10.4 g/dL below low threshold See Below [facility] Work Phone: Comment on above: Reference Range: 13. 5 - 17.5 MCHC (RBC) [Mass/Vol] 34.7 g/dL See Below MG- [facility]ol[facility]ol [facility] Work Phone: Comment on above: Reference Range: 32. 0 - 36.0 MCV (RBC) [Entitic vol] 97 fL 80 - 100 M G-Otolaryngol [employer] [facility] Work Phone: Platelets (Bld) [#/Vol] 275 10*3/uL 150 - 450 MG-Otolaryngol [facility] Work Phone: RBC (Bld) [#/Vol] 3.10 {x10E12/L} below low threshold See Below MG-Otolaryngol [employer] Work Phone: Comment on above: Reference Range: 4.5 0 - 5.90 WBC (Bld) [#/Vol] 11.2 10*3/uL 4.4 - 11.3 MG-Ot olaryngol [place] Work Phone: Magnesium, Serumon Magnesium [Mass/Vol] 1.90 mg/dL See Below MG-O tolaryngol [facility] Work Phone: Comment on above: Reference Range: 1.6 0 - 2.40 No Panel Informationon 11-10 0.0 {/100_WBC} 0.0-0.0 MG-Otolary ngol [facility] Work Phone: Renal Function Panelon 11-10 Albumin BCP dye [Mass/Vol] 2.6 g/dL below low threshold 3.4 - 5.0 MG-[facility]tolaryngol [facility] Work Phone: Anion gap [Moles/Vol] 11 mmol/L 10 - 20 MG- [facility]ol [facility] Work Phone: Calcium [Mass/Vol] 7.9 mg/dL below low threshold 8.6 - 10.6 [facility]ol [facility] Work Phone: Chloride [Moles/Vol] 98 mmol/L 98 - 107 [facility]ol [facility] Work Phone: CO2 [Moles/Vol] 30 mmol/L 21 - 32 MG-Otolar yngol [facility] Work Phone: Creatinine [Mass/Vol] 0.26 mg/dL below low threshold See Below MG-[facility]tolaryngol [facility] Work Phone: Comment on above: Reference Range: 0.5 0 - 1.30 Glucose [Mass/Vol] 134 mg/dL above high threshold 74 - 99 [facility] Work Phone: Phosphate [Mass/Vol] 3.9 mg/dL 2.5 - 4.9 MG-O [facility]laryngol [facility] Work Phone: Comment on above: The performance adryan acteristics of phosphorus testing in heparinized plasma have been validated by the individual laboratory site where testing is performed. Testing on heparinized plasma is not approved by the FDA; however, such approval is not necessary. Potassium [Moles/Vol] 4.0 mmol/L 3.5 - 5.3 MG- [facility]olaryngol [facility] Work Phone: Sodium [Moles/Vol] 135 mmol/L below low threshold 136 - 145 MG-[facility]tolaryngol [facility] Work Phone: Urea nitrogen [Mass/Vol] 7 mg/dL 6 - 23 [facility] Work Phone: Renal Function Panel >90 >90 MG-O [facility]ol [facility] Work Phone: Comment on above: CALCULATIONS OF JORGE MATED GFR ARE PERFORMED USING THE 2020 CKD-EPI STUDY REFIT EQUATION WITHOUT THE RACE VARIABLE FOR THE IDMS-TRACEABLE CREATININE METHODS.https://jasn.asnjournals.org/content/early/ ASN.4229833081 Laboratory - Chemistry and C hemistry - challengeon 11-09-2021 Glucose [Mass/Vol] 106 mg/dL above high threshold 74 - 99 MG-[facility]aryngol [facility] Work Phone: Glucose [Mass/Vol] 149 mg/dL above high threshold 74 - 99 [facility] Work Phone: Glucose [Mass/Vol] 105 mg/dL above high threshold 74 - 99 [facility] Work Phone: Laboratory - Hematology and Cell countson 11-09-2021 Erythrocyte distribution width (RBC) [Ratio] 13.9 % See Below MG-[facility]tolaryngol [facility] Work Phone: Comment on above: Reference Range: 11. 5 - 14.5 Hematocrit (Bld) [Volume fraction] 31.8 % below low threshold See Below MG-[facility]tolaryngol [facility] Work Phone: Comment on above: Reference Range: 41. 0 - 52.0 Hemoglobin (Bld) [Mass/Vol] 11.1 g/dL below low threshold See Below MG-[facility]tolaryngol [facility] Work Phone: Comment on above: Reference Range: 13. 5 - 17.5 MCHC (RBC) [Mass/Vol] 34.9 g/dL See Below MG- [facility]ol [facility] Work Phone: Comment on above: Reference Range: 32. 0 - 36.0 MCV (RBC) [Entitic vol] 94 fL 80 - 100 M G-Otolaryngol [facility] Work Phone: Platelets (Bld) [#/Vol] 276 10*3/uL 150 - 450 [facility]tol[facility]ol [facility] Work Phone: RBC (Bld) [#/Vol] 3.38 {x10E12/L} below low threshold See Below [facility]tolaryngol [facility] Work Phone: Comment on above: Reference Range: 4.5 0 - 5.90 WBC (Bld) [#/Vol] 10.3 10*3/uL 4.4 - 11.3 MG-Ot olaryngol [facility] Work Phone: Magnesium, Serumon 2 Magnesium [Mass/Vol] 1.76 mg/dL See Below MG-O tolaryngol [facility] Work Phone: Comment on above: Reference Range: 1.6 0 - 2.40 No Panel Informationon 11-09 0.0 {/100_WBC} 0.0-0.0 MG-Otolary ngol [facility]gy[facility] Work Phone: Renal Function Panelon 11-09 Albumin BCP dye [Mass/Vol] 2.8 g/dL below low threshold 3.4 - 5.0 MG-Otolaryngol [facility] Work Phone: Anion gap [Moles/Vol] 11 mmol/L 10 - 20 MG- [facility]ol [facility] Work Phone: Calcium [Mass/Vol] 7.7 mg/dL below low threshold 8.6 - 10.6 [facility]ol [facility] Work Phone: Chloride [Moles/Vol] 94 mmol/L below low threshold 98 - 107 MG-[facility]tolaryngol [facility] Work Phone: CO2 [Moles/Vol] 29 mmol/L 21 - 32 MG-Otolar yngol [facility]gy[facility] Work Phone: Creatinine [Mass/Vol] mg/dL See Below MG- Otolaryngol [facility] Work Phone: Comment on above: Reference Range: 0.5 0 - 1.30 Glucose [Mass/Vol] 112 mg/dL above high threshold 74 - 99 MG-[facility]tolaryngol [facility] Work Phone: Phosphate [Mass/Vol] 2.2 mg/dL below low threshold 2.5 - 4.9 MG-Otolaryngol [facility] Work Phone: Comment on above: The performance adryan acteristics of phosphorus testing in heparinized plasma have been validated by the individual laboratory site where testing is performed. Testing on heparinized plasma is not approved by the FDA; however, such approval is not necessary. Potassium [Moles/Vol] 3.4 mmol/L below low threshold 3.5 - 5.3 MG-Otolaryngol [facility] Work Phone: Sodium [Moles/Vol] 131 mmol/L below low threshold 136 - 145 [facility]ol [facility] Work Phone: Urea nitrogen [Mass/Vol] 7 mg/dL 6 - 23 MG-[facility]tolaryngol [facility] Work Phone: Renal Function Panel >90 >90 MG-O [facility]laryngol [facility] Work Phone: Comment on above: CALCULATIONS OF JORGE MATED GFR ARE PERFORMED USING THE 2020 CKD-EPI STUDY REFIT EQUATION WITHOUT THE RACE VARIABLE FOR THE IDMS-TRACEABLE CREATININE METHODS.https://jasn.asnjournals.org/content// ASN.4865688300 Laboratory - Chemistry and C hemistry - challengeon 11-08-2021 Glucose [Mass/Vol] 130 mg/dL above high threshold 74 - 99 MG-[facility]tolaryngol [facility] Work Phone: Glucose [Mass/Vol] 106 mg/dL above high threshold 74 - 99 MG-[facility]tolaryngol [facility] Work Phone: Glucose [Mass/Vol] 122 mg/dL above high threshold 74 - 99 [facility]ol [facility] Work Phone: Laboratory - Hematology and Cell countson 11-08-2021 Erythrocyte distribution width (RBC) [Ratio] 14.1 % See Below MG-[facility]tolaryngol [facility] Work Phone: Comment on above: Reference Range: 11. 5 - 14.5 Hematocrit (Bld) [Volume fraction] 35.2 % below low threshold See Below [facility]tolaryngol [facility] Work Phone: Comment on above: Reference Range: 41. 0 - 52.0 Hemoglobin (Bld) [Mass/Vol] 12.0 g/dL below low threshold See Below MG-[facility]tolaryngol [facility] Work Phone: Comment on above: Reference Range: 13. 5 - 17.5 MCHC (RBC) [Mass/Vol] 34.1 g/dL See Below MG- [facility]olaryngol [facility] Work Phone: Comment on above: Reference Range: 32. 0 - 36.0 MCV (RBC) [Entitic vol] 95 fL 80 - 100 M G-Otolaryngol [employer] [facility] Work Phone: Platelets (Bld) [#/Vol] 342 10*3/uL 150 - 450 MG-Otolaryngol [facility] Work Phone: RBC (Bld) [#/Vol] 3.71 {x10E12/L} below low threshold See Below MG-Otolaryngol [facility] Work Phone: Comment on above: Reference Range: 4.5 0 - 5.90 WBC (Bld) [#/Vol] 9.5 10*3/uL 4.4 - 11.3 MG-Aniket laryngol [facility] Work Phone: Magnesium, Serumon Magnesium [Mass/Vol] 1.67 mg/dL See Below MG-O tolaryngol ogy[facility] Work Phone: Comment on above: Reference Range: 1.6 0 - 2.40 No Panel Informationon 11-08 0.0 {/100_WBC} 0.0-0.0 MG-Otolary ngol [facility] Work Phone: Renal Function Panelon 11-08 Albumin BCP dye [Mass/Vol] 3.6 g/dL 3.4 - 5.0 MG-Otolaryngol [facility] Work Phone: Anion gap [Moles/Vol] 16 mmol/L 10 - 20 MG- Otolaryngol [facility] Work Phone: Calcium [Mass/Vol] 8.3 mg/dL below low threshold 8.6 - 10.6 MG-[facility]tolaryngol [facility] Work Phone: Chloride [Moles/Vol] 93 mmol/L below low threshold 98 - 107 MG-[facility]tolaryngol [facility] Work Phone: CO2 [Moles/Vol] 27 mmol/L 21 - 32 MG-Otolar yngol [facility] Work Phone: Creatinine [Mass/Vol] 0.38 mg/dL below low threshold See Below MG-Otolaryngol [facility] Work Phone: Comment on above: Reference Range: 0.5 0 - 1.30 Glucose [Mass/Vol] 84 mg/dL 74 - 99 MG-Aniket laryngol [facility] Work Phone: Phosphate [Mass/Vol] 2.8 mg/dL 2.5 - 4.9 MG-O tolaryngol [facility] Work Phone: Comment on above: The performance adryan acteristics of phosphorus testing in heparinized plasma have been validated by the individual laboratory site where testing is performed. Testing on heparinized plasma is not approved by the FDA; however, such approval is not necessary. Potassium [Moles/Vol] 3.9 mmol/L 3.5 - 5.3 MG- Otolaryngol [facility] Work Phone: Sodium [Moles/Vol] 132 mmol/L below low threshold 136 - 145 MG-Otolaryngol [facility] Work Phone: Urea nitrogen [Mass/Vol] 6 mg/dL 6 - 23 MG-Otolaryngol [facility] Work Phone: Renal Function Panel >90 >90 MG-O tolaryngol [facility] Work Phone: Comment on above: CALCULATIONS OF JORGE MATED GFR ARE PERFORMED USING THE 2020 CKD-EPI STUDY REFIT EQUATION WITHOUT THE RACE VARIABLE FOR THE IDMS-TRACEABLE CREATININE METHODS.https://jasn.asnjournals.org/content/early/ ASN.8486066679 Laboratory - Blood bankon ABO group Nom (Bld) A MG-Ot olaryngol [facility]-[place] [address] Work Phone: Rh immune globulin screen (Bld) [Interp] Positive MG-Otolary ngol [facility] [address] Work Phone: Laboratory - Chemistry and C hemistry - challengeon 11-07-2021 Anion gap (Bld) [Moles/Vol] 11 mmol/L 10 - 25 MG-Otolaryngol [facility] [address] Work Phone: Calcium.ionized (Bld) [Moles/Vol] 1.09 mmol/L below low threshold See Below MG-Otolaryngol [facility] [address] Work Phone: Comment on above: Reference Range: 1.1 0 - 1.33 Chloride [Moles/Vol] 96 mmol/L below low threshold 98 - 107 MG-Otolaryngol [facility] [address] Work Phone: CO2 (Bld) [Partial pressure] 38 mm[Hg] 38 - 42 MG-[facility]tolaryngol [facility] [address] Work Phone: Glucose [Mass/Vol] 122 mg/dL above high threshold 74 - 99 MG-[facility]tolaryngol [facility] [address] Work Phone: HCO3 (Bld) [Moles/Vol] 25.8 mmol/L See Below M G-[facility]tol[facility]ol [facility] [address] Work Phone: Comment on above: Reference Range: 22. 0 - 26.0 Lactate [Moles/Vol] 0.9 mmol/L 0.4 - 2.0 MG-Ot olaryngol [facility] [address] Work Phone: Oxygen (Bld) [Partial pressure] 190 mm[Hg] above high threshold 85 - 95 MG-Otolaryngol [facility] [address] Work Phone: pH (Bld) 7.44 [pH] above high threshold See Below MG-[facility]tolaryngol [facility] [address] Work Phone: Comment on above: Reference Range: 7.3 8 - 7.42 Potassium [Moles/Vol] 3.7 mmol/L 3.5 - 5.3 MG- Otolaryngol [facility] [address] Work Phone: Sodium [Moles/Vol] 129 mmol/L below low threshold 136 - 145 MG-[facility]tolaryngol [facility] [address] Work Phone: Anion gap (Bld) [Moles/Vol] 9 mmol/L below low threshold 10 - 25 MG-[facility]tolaryngol [facility] [address] Work Phone: Calcium.ionized (Bld) [Moles/Vol] 1.08 mmol/L below low threshold See Below MG-[facility]tolaryngol [facility] [address] Work Phone: Comment on above: Reference Range: 1.1 0 - 1.33 Chloride [Moles/Vol] 95 mmol/L below low threshold 98 - 107 MG-[facility]tolaryngol [facility] [address] Work Phone: CO2 (Bld) [Partial pressure] 37 mm[Hg] below low threshold 38 - 42 MG-[facility]tolaryngol [facility] [address] Work Phone: Glucose [Mass/Vol] 109 mg/dL above high threshold 74 - 99 MG-[facility]tolaryngol [facility] [address] Work Phone: HCO3 (Bld) [Moles/Vol] 26.9 mmol/L above hig h threshold See Below MG-[facility]tolaryngol [facility] [address] Work Phone: Comment on above: Reference Range: 22. 0 - 26.0 Lactate [Moles/Vol] 0.6 mmol/L 0.4 - 2.0 MG-Ot olaryngol [facility] [address] Work Phone: Oxygen (Bld) [Partial pressure] 209 mm[Hg] above high threshold 85 - 95 [facility]tolaryngol [facility] [address] Work Phone: pH (Bld) 7.47 [pH] above high threshold See Below MG-[facility]tol[facility]ol [facility] [address] Work Phone: Comment on above: Reference Range: 7.3 8 - 7.42 Potassium [Moles/Vol] 4.0 mmol/L 3.5 - 5.3 MG- Otolaryngol [facility] [address] Work Phone: Sodium [Moles/Vol] 127 mmol/L below low threshold 136 - 145 MG-[facility]tolaryngol [facility] [address] Work Phone: Laboratory - Hematology and Cell countson 11-07-2021 Hematocrit (Bld) [Volume fraction] 36.0 % below low threshold See Below MG-[facility]tolaryngol [facility] [address] Work Phone: Comment on above: Reference Range: 41. 0 - 52.0 Hemoglobin (Bld) [Mass/Vol] 12.2 g/dL below low threshold See Below MG-[facility]tolaryngol [facility] [address] Work Phone: Comment on above: Reference Range: 13. 5 - 17.5 Hematocrit (Bld) [Volume fraction] 38.0 % below low threshold See Below [facility]ol [facility] [address] Work Phone: Comment on above: Reference Range: 41. 0 - 52.0 Hemoglobin (Bld) [Mass/Vol] 12.9 g/dL below low threshold See Below MG-[facility]tolaryngol [facility] [address] Work Phone: Comment on above: Reference Range: 13. 5 - 17.5 No Panel Informationon 11-07 1.7 mmol/L -2.0 - 3.0 MG-[facility]tolaryngol [facility] [address] Work Phone: 100 % 94 - 100 MG-Otolaryngol [facility] [address] Work Phone: 37.0 {degrees_C} MG-Otola ryngol [facility] [address] Work Phone: Comment on above: NOTE: PATIENT RESULT S ARE NOT CORRECTED FOR TEMPERATURE. 3.2 mmol/L above high threshold -2.0 - 3.0 MG-[facility]tolaryngol [facility] [address] Work Phone: 100 % 94 - 100 [facility]tolaryngol [facility] [address] Work Phone: 37.0 {degrees_C} MG-Otola ryngol [facility] [address] Work Phone: Comment on above: NOTE: PATIENT RESULT S ARE NOT CORRECTED FOR TEMPERATURE. MG-Otolaryngol [facility] Work Phone: Coronavirus 2019 RNA by PCR, Screening Asymptomticon 11-06-2021 Coronavirus 2019 RNA by PCR, Screening Asymptomtic Not detected Normal See Below MG-[facility]tolaryngol [facility] [address] Work Phone: Comment on above: SOURCE: Nasal, Nasop haryngealReference Range: Not Detected.This assay is designed to detect the N, ORF1ab and/or S genes of SARS-CoV-2 via nucleic acid amplification. A Negative (NOT DETECTED) result does not preclude 2019-nCoV infection since the adequacy of sample collection and/or low viral burden may result in presence of viral nucleic acids below the clinical sensitivity of this test method. Negative (NOT DETECTED) result should not be used as the sole basis for treatment or other patient management decisions. Rather negative results should be combined with clinical observations, patient history, and epidemiological information to make patient management decisions.Fact sheet for providers: https://www.fda.gov/media/572160/downloadFact sheet for patients: https://www.fda.gov/media/521678/downloadThis test has received FDA Emergency Use Authorization (EUA) and has been verified by [facility] ([facility]). This test is only authorized for the duration of time that circumstances exist to justify the authorization of the emergency use of in vitro diagnostic tests for the detection of SARS-CoV-2 virus and/or diagnosis of COVID-19 infection under section 564(b)(1) of the Act, 21 U.S.C. 360bbb-3(b)(1), unless the authorization is terminated or revoked sooner. [facility] is certified under CLIA-88 as qualified to perform high complexity testing. Testing is performed in the [facility] laboratories located at [address] [place] [address]. Laboratory - Coagulationon 0 11-02-2021 aPTT Coag (PPP) [Time] 35 s 26 - 39 MG -[facility]tolaryngol [facility] Work Phone: Comment on above: Note new reference facundo xena as of 08/22/2021 at 10:00am. INR Coag (PPP) [Relative time] 1.0 {INR} 0.9 - 1.1 MG-Otolaryngol [facility] Work Phone: PT Coag (PPP) [Time] 11.5 s 9.8 - 13.4 MG-[facility]laryngol [facility] Work Phone: Comment on above: Note new reference facundo mccallum as of 08/22/2021 at 10:00am. Tobacco Screening.on 022 Fall risk assessment a) No falls within the last year [facility] Work Phone: Tobacco use status CP b) No M G-[facility]tolaryngol [facility] Work Phone: CT Neck with Contraston CT Neck W contrast IV Please click on rm e link to view the study images Normal MG-[facility]iol [facility] Work Phone: CT Neck W contrast IV Normal MG- Otolaryngol ogy-[facility] [place] [address] Work Phone: CTA ABD Aorta With Bilat Tamar ofem Extr Runoff w/wo Cont Post Procon 10-31-2021 CTA ABD Aorta With Bilat Iliofem Extr Runoff w/wo Cont Post Proc Please click on the link to view the study images Normal [facility] Work Phone: CTA ABD Aorta With Bilat Iliofem Extr Runoff w/wo Cont Post Proc Normal MG-Otolaryngol ogy-[facility] [place] [address] Work Phone: Complete Blood Count + Diffe rentialon 10-31-2021 Basophils/100 WBC (Bld) 0.4 % 0.0 - 2.0 M G-[facility]iol [facility] Work Phone: Erythrocyte distribution width (RBC) [Ratio] 13.4 % See Below MG-[facility]esthesiol [facility] Work Phone: Comment on above: Reference Range: 11. 5 - 14.5 Hematocrit (Bld) [Volume fraction] 42.1 % See Below [facility]iol [facility] Work Phone: Comment on above: Reference Range: 41. 0 - 52.0 Hemoglobin (Bld) [Mass/Vol] 14.6 g/dL See Below [facility]iol [facility] Work Phone: Comment on above: Reference Range: 13. 5 - 17.5 Lymphocytes/100 WBC (Bld) 9.3 % See Below [facility]iol [facility] Work Phone: Comment on above: Reference Range: 13. 0 - 44.0 MCHC (RBC) [Mass/Vol] 34.7 g/dL See Below MG- [facility]iol [facility] Work Phone: Comment on above: Reference Range: 32. 0 - 36.0 MCV (RBC) [Entitic vol] 94 fL 80 - 100 M G-[facility]iol [facility] Work Phone: Monocytes/100 WBC (Bld) 11.9 % 2.0 - 10.0 M [facility] Work Phone: Neutrophils/100 WBC (Bld) 77.8 % See Below [facility]iol [facility] Work Phone: Comment on above: Reference Range: 40. 0 - 80.0 Platelets (Bld) [#/Vol] 350 10*3/uL 150 - 450 [facility]iol [facility] Work Phone: RBC (Bld) [#/Vol] 4.47 {x10E12/L} below low threshold See Below [facility]iol [facility] Work Phone: Comment on above: Reference Range: 4.5 0 - 5.90 WBC (Bld) [#/Vol] 8.5 10*3/uL 4.4 - 11.3 MG-Ane sthesiol [facility]gy[facility] Work Phone: Complete Blood Count + Differential 0.03 {x10E9/L} See Below [facility]iol [facility] Work Phone: Comment on above: Reference Range: 0.0 0 - 0.10 Complete Blood Count + Differential 0.01 {x10E9/L} See Below [facility]iol [facility] Work Phone: Comment on above: Reference Range: 0.0 0 - 0.70 Complete Blood Count + Differential 1.01 {x10E9/L} above high threshold See Below [facility] Work Phone: Comment on above: Reference Range: 0.1 0 - 1.00 Complete Blood Count + Differential 0.79 {x10E9/L} below low threshold See Below [facility] Work Phone: Comment on above: Reference Range: 1.2 0 - 4.80 Complete Blood Count + Differential 6.63 {x10E9/L} See Below [facility] Work Phone: Comment on above: Reference Range: 1.2 0 - 7.70 Complete Blood Count + Differential 0.1 % 0.0 - 6.0 [facility] Work Phone: Complete Blood Count + Differential 0.5 % 0.0 - 0.9 [facility] Work Phone: Comment on above: Immature Granulocyte Count (IG) includes promyelocytes, myelocytes and metamyelocytes but does not include bands. Percent differential counts (%) should be interpreted in the context of the absolute cell counts (cells/L). Complete Blood Count + Differential 0.0 {/100_WBC} 0.0-0.0 [facility] Work Phone: Laboratory - Blood bankon ABO group Nom (Bld) A [facility] Work Phone: Blood group antibody screen Ql Negative [facility] Work Phone: Rh immune globulin screen (Bld) [Interp] Positive [facility] Work Phone: Laboratory - Chemistry and C hemistry - challengeon 10-31-2021 Albumin BCP dye [Mass/Vol] 4.5 g/dL 3.4 - 5.0 [facility] Work Phone: ALP [Catalytic activity/Vol] 120 U/L 33 - 120 [facility] Work Phone: ALT With P-5'-P [Catalytic activity/Vol] 9 U/L below low threshold 10 - 52 [facility] Work Phone: Comment on above: Patients treated wit h Sulfasalazine may generate falsely decreased results for ALT. Anion gap [Moles/Vol] 14 mmol/L 10 - 20 [facility] Work Phone: AST With P-5'-P [Catalytic activity/Vol] 19 U/L 9 - 39 [facility] Work Phone: Bilirubin [Mass/Vol] 0.4 mg/dL 0.0 - 1.2 [facility] Work Phone: Calcium [Mass/Vol] 9.6 mg/dL 8.6 - 10.6 [facility] Work Phone: Chloride [Moles/Vol] 91 mmol/L below low threshold 98 - 107 [facility] Work Phone: CO2 [Moles/Vol] 31 mmol/L 21 - 32 [facility] Work Phone: Creatinine [Mass/Vol] 0.36 mg/dL below low threshold See Below [facility] Work Phone: Comment on above: Reference Range: 0.5 0 - 1.30 Glucose [Mass/Vol] 86 mg/dL 74 - 99 [facility] Work Phone: Potassium [Moles/Vol] 4.6 mmol/L 3.5 - 5.3 [facility] Work Phone: Protein [Mass/Vol] 7.7 g/dL 6.4 - 8.2 [facility] Work Phone: Sodium [Moles/Vol] 131 mmol/L below low threshold 136 - 145 [facility] Work Phone: Urea nitrogen [Mass/Vol] 7 mg/dL 6 - 23 [facility] Work Phone: Laboratory - Coagulationon 0 10-31-2021 aPTT Coag (PPP) [Time] Canceled [facility] Work Phone: Comment on above: Note new reference r xena as of 08/22/2021 at 10:00am. INR Coag (PPP) [Relative time] Canceled [facility] Work Phone: PT Coag (PPP) [Time] Canceled [facility] Work Phone: Comment on above: Note new reference r xena as of 08/22/2021 at 10:00am. MRSA Screenon 10-31-2021 Staphylococcus sp identified Org specific cx Nom (Unsp spec) Abnormal [facility] Work Phone: No Panel Informationon 10-31 >90 >90 [facility] Work Phone: Comment on above: CALCULATIONS OF JORGE MATED GFR ARE PERFORMED USING THE 2020 CKD-EPI STUDY REFIT EQUATION WITHOUT THE RACE VARIABLE FOR THE IDMS-TRACEABLE CREATININE METHODS.https://jasn.asnjournals.org/content// ASN.7659117256 http://UHMUSEPRDAIO0 1:8 080/musescripts/museweb .dll?RetrieveTestByDate Time?TywwtbdEQ=[id number] 2&Date=04-24-2022&Time= 14%3a18%3a57%3a00&TestT ype=ECG&Site=1&OutputTy pe=PDF&Ext=PDF [facility] Work Phone: Normal sinus rhythm [facility] Work Phone: Borderline Abnormal [facility] Work Phone: 403 1 [facility] Work Phone: 391 1 [facility] Work Phone: 190 1 [facility] Work Phone: 139 1 [facility] Work Phone: 214 1 [facility] Work Phone: 15 1 [facility] Work Phone: 58 1 [facility] Work Phone: 92 1 [facility] Work Phone: 81 1 [facility] Work Phone: 430 1 [facility] Work Phone: 354 1 [facility] Work Phone: 88 1 [facility] Work Phone: 150 1 [facility] Work Phone: 89 1 [facility] Work Phone: Radiologyon 10-31-2021 XR Chest 2 Views Normal [facility] Work Phone: TSH - Thyroid Stimulating Ho rmone, Serumon 10-31-2021 TSH Qn 20.51 m[IU]/L above high threshold See Below [facility] Work Phone: Comment on above: Reference Range: 0.4 4 - 3.98 TSH testing is performed using different testing methodology at [facility] than at other [facility]. Direct result comparisons should only be made within the same method. Blood Urea Nitrogen, Serumon 10-25-2021 Urea nitrogen [Mass/Vol] 8 mg/dL 6 - 23 [facility] [place] [address] Work Phone: Creatinine, Serumon 10-25-19 Creatinine [Mass/Vol] 0.36 mg/dL below low threshold See Below [facility] [place] [address] Work Phone: Comment on above: Reference Range: 0.5 0 - 1.30 Creatinine, Serum >90 >90 [facility]tol aryngol [facility] [place] [address] Work Phone: Comment on above: CALCULATIONS OF JORGE MATED GFR ARE PERFORMED USING THE 2020 CKD-EPI STUDY REFIT EQUATION WITHOUT THE RACE VARIABLE FOR THE IDMS-TRACEABLE CREATININE METHODS.https://jasn.asnjournals.org/content// ASN.5855260442 Tobacco Screening.on 022 Fall risk assessment a) No falls within the last year [facility] Work Phone: Tobacco use status [facility] a) Yes M [facility] Work Phone: Tobacco Screening. Yes [facility] Work Phone: Nikhil 10-03-2021 CNPN Telephone (OTOLMM) MY JAMA ([id number]) 1960 M Date Time Provider Department 10/03/21 LAURITA MABRY During your visit today, we recorded the following information about you: Laurita Mabry MD 10/03/2021 7:57 PM Signed I spoke with the patient, his daughter, and his regarding the path of his recent oral cavity biopsy. I informed him that this came back as cancer. I will be referring him to one of my colleagues in head and neck surgery. I will also order him a CT scan of the neck. I asked the patient and his family to obtain the outside records of his treatment for his past head neck cancer and to bring the records with them to his appointment. I also asked him to stop his hyperbaric oxygen therapy. ENT pharmacy scheduler was messaged and will call the patient tomorrow. They had no further questions. MD Allyn Shanksw Arturo 10/04/2021 8:48 AM Signed Lul, A nurse from [facility] named Georgina called in this morning to let us know that this Patient did not relay the fact that he has been established with a Head and Neck Cancer Specialist with . Apparently the called this morning to let them know that they have been seeing someone at and will follow up with them. Her name is Dr. Rachel Brooks; ENT. Her telephone number is [phone] (Pat) Just letting you guys know FOR Records Purposes: (PT wants us to fax them info) Their fax is [phone] I will fax what is needed. Renzo Pichardo MD 10/04/2021 11:14 AM Signed gregorio Chacko 10/04/2021 4:26 PM [facility]. 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 They are asking for OV notes, path results. Please fax to them at [phone]. Siobhan Eli Pss 10/05/2021 2:15 PM Signed Left two voicemails for patient to call back and schedule these appointments - gave them scheduling number Allergies As of Date: 10/03/2021 (No Known Allergies) Date Reviewed: 10/02/2021 Reviewed by: Gayle Breaux Ma - Fully Assessed Reason for Visit: Results [95] Prescriptions as of 10/05/2021 - levothyroxine (SYNTHROID) 75 mcg tablet - fluticasone (FLONASE) 50 mcg/actuation nasal spray instill 2 sprays into each nostril once daily for 1 week then ins... (REFER TO PRESCRIPTION NOTES). - folic acid 400 mcg tablet Take by mouth q 24 HR. - Vitamin E, dl, acetate, 1,000 unit capsule Take by mouth. - amLODIPine (NORVASC) 5 mg tablet Take by mouth. - pentoxifylline ER (TRENTAL) 400 mg CR tablet Take by mouth. - ascorbic acid (VITAMIN C ORAL) Take by mouth. - ofloxacin (FLOXIN) 0.3 % otic solution Use 5 Drops in the left ear twice daily for 7 days. Problem List As Of Date: 10/03/2021 (None) Encounter Status:Closed by LAURITA MABRY on 10/03/21 [facility] CNOVdarlyn 10-02-2021 CNOV Office Visit (OTOLMM ) MY JAMA ([id number]) 1960 M Date Time Provider Department 10/02/21 3:00 PM JESIKA PICHARDO OTOLJAMIE During your visit today, we recorded the following information about you: Jesika Pichardo MD 10/02/2021 3:45 PM Signed HPI My Jama is a 61 year old male who presents with follow-up ears. Patient had a left tube put in for the hyperbaric oxygen. Patient underwent chemotherapy and radiation therapy for cancer in the mouth elsewhere. Patient was seen by Dr Mabry and the left tube was placed. Patient is having problems with the right ear and hyperbaric patient also had a biopsy of the oral cavity as well. ROS General Weight loss: No Fatigue: No Night sweats:No Cardiac Chest pain:No Fast heart rate:No Swelling in the feet:No Respiratory Short of breath:No Cough:No Wheezing:No Gastrointestinal Nausea:No Vomiting:No Indigestion:No Past medical history, family history, and social history reviewed. PE There were no vitals taken for this visit. General: Patient is awake, alert, NAD. Voice is normal. Skin: normal Eyes: Extraocular motion and Gaze is normal. Ears: Right external auditory canal is normal. TMJ: normal. Right tympanic membranes normal. Left external auditory canal is normal. Left tympanic membrane normal. Tube is clear on the left nose: Septum is normal. Turbinates are normal. Nasopharynx:normal Oral Cavity/Oropharynx: Lips normal Dentition normal purulence inferiorly significant granulation tissue question recurrence Tongue normal. Tonsils normal. Palate and uvula normal. Pharynx posterior normal Hypopharynx: Base of tongue normal Pyriform sinus normal. Larynx: Vocal cords normal. Epiglottis normal. Post cricoid normal. Salivary glands: Parotid normal. Submandibular and sublingual normal. Thyroid: normal. Lymphatic/Neck: Lymph nodes normal. Neurologic: Facial nerve normal. ASSESSMENT/PLAN: 1. Eustachian tube disorder, bilateral - ICD9: 381.9, ICD10: H69.93 Myringotomy and tube right Preop diagnosis: Chronic serous otitis media Postop diagnosis: same Procedure: myringotomy and tube right Procedure: The patient was brought into the procedure room placed in a supine position and the microscope was brought in place. Using topical phenol the eardrum was anesthetized. A myringotomy blade was used to make a incision in the tympanic membrane without difficulty. A #5 suction was used to remove fluid. A Sourav- bobbin tube was placed without difficulty. The patient tolerated the procedure well with no complication. Jesika Pichardo MD Findings will be communicated to the referring physician via mail or electronic medical record. Referring Provider: JESIKA PICHARDO [[id number]] Allergies As of Date: 10/02/2021 (No Known Allergies) Date Reviewed: 10/02/2021 Reviewed by: Gayle Breaux Ma - Fully Assessed Reason for Visit: Ear Problem [38] Cmt: [address] Mabry inserted tube in left ear, needs it in the right ear due to pain in Bariatric Chamber Primary Visit Diagnosis:Eustachian tube disorder, bilateral [H69.93] Prescriptions as of 10/02/2021 - levothyroxine (SYNTHROID) 75 mcg tablet - fluticasone (FLONASE) 50 mcg/actuation nasal spray instill 2 sprays into each nostril once daily for 1 week then ins... (REFER TO PRESCRIPTION NOTES). - folic acid 400 mcg tablet Take by mouth q 24 HR. - Vitamin E, dl, acetate, 1,000 unit capsule Take by mouth. - amLODIPine (NORVASC) 5 mg tablet Take by mouth. - pentoxifylline ER (TRENTAL) 400 mg CR tablet Take by mouth. - ascorbic acid (VITAMIN C ORAL) Take by mouth. - ofloxacin (FLOXIN) 0.3 % otic solution Use 5 Drops in the left ear twice daily for 7 days. 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 Patient also has a ulcerative lesion after dental extraction in the lower gingiva along the gingival buccal sulcus. RECOMMENDATION/PLAN Ear tube was placed into the left ear without any difficulty. Patient can proceed with hyperbaric oxygen therapy as scheduled. I recommend starting him on Floxin eardrops to the left ear twice a day for 7 days. Patient should follow with me in 1 month for ear tube check. As for his oral cavity lesion, this was biopsied today in the office to rule out malignancy. I will contact the patient with results of this biopsy. 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 Patient stated that he had metastatic disease to the left side of his neck at the time of diagnosis and had a tonsillectomy. He is not sure the exact location of his head neck cancer but it does sound like it was a unknown primary. A few weeks ago, he underwent dental extraction and subsequently developed osteoradionecrosis of the mandible. He recently started hyperbaric oxygen therapy but developed severe left-sided ear pain unable to clear his ears during his treatment. Therefore he was subsequently referred here for ear tube placement. History reviewed. No pertinent past medical history. PAST SURGICAL HISTORY Procedure Laterality Date - TONSILLECTOMY AND ADENOIDECTOMY HX History reviewed. No pertinent family history. CURRENT OUTPATIENT MEDICATIONS Current Outpatient Medications on File Prior to Visit Medication Sig - levothyroxine (SYNTHROID) 75 mcg tablet - fluticasone (FLONASE) 50 mcg/actuation nasal spray instill 2 sprays into each nostril once daily for 1 week then ins... (REFER TO PRESCRIPTION NOTES). - folic acid 400 mcg tablet Take by mouth q 24 HR. - Vitamin E, dl, acetate, 1,000 unit capsule Take by mouth. - amLODIPine (NORVASC) 5 mg tablet Take by mouth. - pentoxifylline ER (TRENTAL) 400 mg CR tablet Take by mouth. - ascorbic acid (VITAMIN C ORAL) Take by mouth. No current facility-administered medications on file prior to visit. ALLERGIES ALLERGIES No Known Allergies The remainder of the patient's history and review of systems is on the outpatient questionaire which was reviewed by me and placed in the outpatient chart. PHYSICAL EXAMINATION Appearance: General examination of the patient's external face, head and neck reveals no abnormalities. The patient is not retrognathic The patient's voice is strong and clear and they communicate easily. Ears: Right EAC patent, TM intact, middle ear space appears healthy. Left EAC patent, TM intact, blood-tinged secretions in the middle ear space. Nose: External nasal exam was normal. Throat: On exam, patient has a large ulcerative wound lesion involving the anterior mandibular gingival labial sulcus. There is exposed mandible. Neck: Palpation of the neck revealed no adenopathy, salivary gland masses or asymmetry, or thyroid masses or enlargement. The neck significantly fibrotic with post radiation changes. Procedure: Left myringotomy and ear tube placement Indication: Left eustachian tube dysfunction unable to tolerate hyperbaric oxygen therapy causing left barotrauma Procedure detail: The left ear was examined under otomicroscopy. Phenol was applied to the inferior aspect of the left tympanic membrane. After waiting adequate time for phenol to take effect, a myringotomy knife was used to make an inferior incision in the TM. An Pryor grommet ear tube was then placed through the myringotomy incision without difficulty. Ciprodex eardrop was then instilled in the ear. Patient tolerated procedure well without any complications. Procedure: Punch biopsy of oral cavity lesion Indication: Ulcerative and friable lesions involving the anterior aspect of the mandibular gingiva. The lesion appears to be involving the gingival labial sulcus and encroaching the floor of mouth. Patient history of head neck cancer status post radiation. Tissue biopsy is needed to rule out malignancy versus granulation tissue Procedure details: 1% lidocaine with 1 200,000 epinephrine was injected into the tissue of the mandibular gingiva. After waiting adequat (more content not included)... Normal [facility] SURGICAL PATHOLOGYon 022 SURGICAL PATHOLOGY Specimen originated from [facility] Specimen #: [id number] Submitting Physician: LAURITA MABRY FINAL DIAGNOSIS Gingiva, mandible, biopsy: - Invasive squamous cell carcinoma, moderately differentiated. 10/03/[address] Charisma Gregory and Dr. Elias Carmen were consulted and agree with the diagnosis. Immunohistochemistry was performed and the tumor cells are positive for p63 and negative for CK7 and p16. A subset of the tumor cells have CAM5.2 expression. A special stain for mucin is negative. Chromogenic in-situ hybridization for high-risk human papillomavirus subtypes is negative. The morphology together with the immunohistochemical profile is compatible with a squamous cell carcinoma. Laboratory Developed Test (LDT) Disclaimer: Positive and negative controls stain appropriately. Performance characteristics of immunohistochemical, immunofluorescent and chromogenic in-situ hybridization tests have been determined by [facility]'s [facility] [place] ([facility]) in a manner consistent with CLIA requirements. One or more of these tests have not been cleared or approved by the FDA. [facility] is regulated under CLIA as qualified to perform high-complexity testing. These tests are used for clinical purposes. They should not be regarded as investigational or for research. Jania Whyte MD (Electronic Signature) SPECIMEN SUBMITTED A: GINGIVA MANDIBLE, BIOPSY CLINICAL DATA HISTORY OF HEAD AND NECK RADIATION FOR UNKNOWN PRIMARY. S/P DENTAL EXTRACTION WITH ORN AND ULCERATIVE LESION OF THE MANDIBULAR GINGIVA. RULE OUT MALIGNANCY VS. GRANULATION TISSUE. GROSS DESCRIPTION A. Received in formalin labeled gingiva mandible, biopsy are two irregularly shaped and unoriented pieces of pink-mcmahon soft tissue that aggregate to 0.9 x 0.4 x 0.3 cm. The specimen is submitted in toto in formalin in cassette A1. JOAO/vic 09/29/2021 Gross examination performed at [facility], [facility] [place] [address] Date of Report: 10/03/2021 Date of Procedure: 09/28/2021 Date of Receipt: 09/29/2021 Submitted by: LAURITA MABRY Location: [facility] Diagnostic interpretation performed at [facility], [address] [place] [address]. CLIA Number: [id number] Normal [facility] Urinalysis, Office ([id number])on 08-15-2021 Bilirubin Ql (U) Negative Normal Comprehe ns[facility]; [facility] Work Phone: Glucose Test strip (U) [Mass/Vol] Negative Normal [facility]; [facility] Work Phone: Hemoglobin Ql (U) non-hemolyzed trace Normal [facility]; [facility] Work Phone: Ketones Ql (U) Negative Normal Comprehens sr[facility]i [facility]; [facility] Work Phone: Leukocyte esterase Test strip Ql (U) Negative Normal [facility]; [facility] Work Phone: Nitrite Ql (U) Negative Normal [facility]; [facility] Work Phone: pH (U) 7 [pH] Normal [facility]; [facility] Work Phone: Protein Ql (U) Negative Normal Comprehens [facility]; [facility] Work Phone: Specific gravity (U) [Rel density] 1.015 1 Normal [facility]; [facility] Work Phone: Urobilinogen (24H U) [Mass/Time] Normal Normal [facility]; [facility] Work Phone: Metabolic Panel, Comprehensi ve ([id number])Ordered By: Chemical Dependency Professional on 07-26-2021 Albumin [Mass/Vol] 4.3 g/dL Normal 3.8-4.9 [facility]; [facility] Work Phone: Comment on above: PATIENT NOT FASTINGP ERFORMED BY: [id number] [facility] [id number] Albumin/Globulin [Mass ratio] 1.4 {ratio} Normal 1.2-2.2 [facility]; [facility] Work Phone: Comment on above: PATIENT NOT FASTINGP ERFORMED BY: [id number] [facility] [id number] ALP [Catalytic activity/Vol] 115 U/L Normal 44-121 [facility]; [facility] Work Phone: Comment on above: Please note refere nce interval change PATIENT NOT FASTINGP ERFORMED BY: CB [facility] [id number] [place] [id number] ALT [Catalytic activity/Vol] 12 U/L Normal 0-44 [facility]; [facility] Work Phone: Comment on above: PATIENT NOT FASTINGP ERFORMED BY: CB [facility] [id number]Dublin [place] [id number] AST [Catalytic activity/Vol] 19 U/L Normal 0-40 [facility]; [facility] Work Phone: Comment on above: PATIENT NOT FASTINGP ERFORMED BY: CB [facility] [id number]Dublin [place] [id number] Bilirubin [Mass/Vol] 0.2 mg/dL Normal 0.0-1.2 Comp rehensive [facility]; [facility] Work Phone: Comment on above: PATIENT NOT FASTINGP ERFORMED BY: CB [facility] [id number]Dublin [place] [id number] Calcium [Mass/Vol] 9.4 mg/dL Normal 8.7-10.2 [facility]; [facility] Work Phone: Comment on above: PATIENT NOT FASTINGP ERFORMED BY: CB [facility] [id number]Dublin [place] [id number] Chloride [Moles/Vol] 86 mmol/L Abnormal 96-106 Comp rehensive [facility]; [facility] Work Phone: Comment on above: PATIENT NOT FASTINGP ERFORMED BY: CB [facility] [id number] [place] [id number] CO2 [Moles/Vol] 24 mmol/L Normal 20-29 [facility]hen [facility]; [facility] Work Phone: Comment on above: PATIENT NOT FASTINGP ERFORMED BY: CB [facility] [id number] [place] [id number] Creatinine [Mass/Vol] 0.53 mg/dL Abnormal 0.76-1.27 Com prehensive [facility]; [facility] Work Phone: Comment on above: PATIENT NOT FASTINGP ERFORMED BY: [facility] [address] [place] [id number] GFR/1.73 sq M.predicted among blacks CKD-EPI (S/P/Bld) [Vol rate/Area] 134 mL/min/1.73 Normal [facility]; [facility] Work Phone: Comment on above: In accordance with recommendations from the NKF-ASN Task force, [facility] is in the process of updating its eGFR calculation to the 2020 CKD-EPI creatinine equation that estimates kidney function without a race variable. PATIENT NOT FASTINGP ERFORMED BY: SAGRARIO [address]vas[address] Kapil [facility]ribeW[facility] [id number] GFR/1.73 sq M.predicted among non-blacks CKD-EPI (S/P/Bld) [Vol rate/Area] 116 mL/min/1.73 Normal [facility]; [facility] Work Phone: Comment on above: PATIENT NOT FASTINGP ERFORMED BY: SAGRARIO Cuevas6370 Dick DarwinVidant Pungo Hospital [id number] Globulin (S) [Mass/Vol] 3.1 g/dL Normal 1.5-4.5 [facility]; [facility] Work Phone: Comment on above: PATIENT NOT FASTINGP ERFORMED BY: SAGRARIO Cuevas6370 [facility] [id number] Glucose [Mass/Vol] 108 mg/dL Abnormal 65-99 [facility] Internal Medicine; [facility] Work Phone: Comment on above: PATIENT NOT FASTINGP ERFORMED BY: SAGRARIO Cuevas6370 [facility]Shrin[facility] [id number] Potassium [Moles/Vol] 4.5 mmol/L Normal 3.5-5.2 [facility] prehensive Internal Medicine; [facility] Work Phone: Comment on above: PATIENT NOT FASTINGP ERFORMED BY: SAGRARIO Gomezlin6370 [facility] [id number] Protein [Mass/Vol] 7.4 g/dL Normal 6.0-8.5 [facility] Internal Medicine; [facility] Work Phone: Comment on above: PATIENT NOT FASTINGP ERFORMED BY: SAGRARIO [facility] Xiyabs6081 Dick RoadDublin [place] [id number] Sodium [Moles/Vol] 125 mmol/L Abnormal 134-144 [facility] Internal Medicine; [facility] Work Phone: Comment on above: PATIENT NOT FASTINGP ERFORMED BY: SAGRARIO [facility] Ocergk3872 Dick RoadDublin [place] [id number] Urea nitrogen [Mass/Vol] 7 mg/dL Normal 6-24 [facility]; [facility] Work Phone: Comment on above: PATIENT NOT FASTINGP ERFORMED BY: SAGRARIO [facility] Rfmody8316 Dick RoadDublin [place] [id number] Urea nitrogen/Creatinine [Mass ratio] 13 mg/mg Normal 9-20 [facility]; [facility] Work Phone: Comment on above: PATIENT NOT FASTINGP ERFORMED BY: [facility] Rqohfa0512 Dick RoadDublin [place] [id number] TSH (THYROID STIMULATING HOR NIK) ([id number])Ordered By: Chemical Dependency Professional on 07-26-2021 TSH Qn 34.100 {uIU/mL} Abnormal 0.450-4.50 0 [facility]; [facility] Work Phone: Comment on above: PATIENT NOT FASTINGP ERFORMED BY: CB [facility] Ofgihv3878 Idck RoadDublin [place] [id number] VITAMIN B12 AND FOLATES (826 07)Ordered By: Chemical Dependency Professional on 07-26-2021 Cobalamin (Vitamin B12) [Mass/Vol] 627 pg/mL Normal 232-1245 [facility]; [facility] Work Phone: Comment on above: PATIENT NOT FASTINGP ERFORMED BY: CB [facility] Cbbmnp6078 Dick RoadDublin [place] [id number] Folate [Mass/Vol] 3.1 ng/mL Normal Compreh ensive Internal Medicine; [facility] Work Phone: Comment on above: A serum folate jan ntration of less than 3.1 ng/mL isconsidered to represent clinical deficiency. PATIENT NOT FASTINGP ERFORMED BY: LabCoRobert Wood Johnson University HospitalIzyiiq8799 [facility] [id number] TSH (THYROID STIMULATING HOR NIK) (36113)Ordered By: Chemical Dependency Professional on 11-28-2020 TSH Qn 18.000 {uIU/mL} Abnormal 0.450-4.50 0 [facility]; [facility] Work Phone: Comment on above: Oct 06 2020; PATIENT NOT FASTINGPERFORMED BY: LabCoRobert Wood Johnson University HospitalBfuuzz6048 [facility] [id number] Absolute lymphocyte counton 08-25-2020 Lymphocytes Auto (Unsp spec) [#/Vol] 1.03 10*3/uL 0.83-4.51 [facility] Work Phone: Basophil percentageon 2019 Bilirubin [Mass/Vol] 0.40 mg/dL 0.20-1.00 [facility] Work Phone: Comment on above: For patients on eltr ombopag therapy, use of Dimension [place] TBIL is not recommended. Chloride [Moles/Vol] 91 mmol/L 98-107 [facility] Work Phone: Eosinophils/100 WBC (Bld) 1.5 % 0-5 [facility] Work Phone: Glucose [Mass/Vol] 94 mg/dL 74-106 [facility] Work Phone: Comment on above: Please note revised GLUCOSE reference range effective 2017. Neutrophils (Bld) [#/Vol] 3.5 10*3/uL 2.0-7.7 [facility] Work Phone: Potassium [Moles/Vol] 4.0 mmol/L 3.5-5.1 [facility] Work Phone: Protein [Mass/Vol] 7.7 g/dL 6.4-8.2 [facility] Work Phone: Sodium [Moles/Vol] 127 mmol/L 136-145 [facility] Work Phone: WBC (Bld) [#/Vol] 5.4 10*3/uL 4.4-11.0 [facility] Work Phone: Blood erythrocytes count (nu mber/volume)on 08-25-2020 RBC (Bld) [#/Vol] 3.99 10*6/uL 4.6-6.2 [facility] Work Phone: Blood hemoglobin measurement (mass/volume)on 08-25-2020 Hemoglobin (Bld) [Mass/Vol] 13.1 g/dL 13.0-16.5 [facility] Work Phone: Blood lymphocytes/100 leukoc yteson 08-25-2020 Lymphocytes/100 WBC (Bld) 19.1 % 19-41 [facility] Work Phone: Blood monocytes/100 leukocyt eson 08-25-2020 Monocytes/100 WBC (Bld) 13.9 % 0-10 [facility] Work Phone: Blood platelet mean volumeon 08-25-2020 Platelet mean volume (Bld) [Entitic vol] 8.6 fL 6.2-12.0 [facility] Work Phone: Determination of erythrocyte mean corpuscular volume (MCV)on 08-25-2020 MCV (RBC) [Entitic vol] 92.7 fL 80-94 [facility] Work Phone: Hematocrit Auto (Bld) [Volum e fraction]on 08-25-2020 Hematocrit (Bld) [Volume fraction] 37.0 % 40-54 [facility] Work Phone: Laboratory - Chemistry and C hemistry - challengeon 08-25-2020 ALP [Catalytic activity/Vol] 112 U/L 45-117 [facility] Work Phone: ALT [Catalytic activity/Vol] 64 U/L 16-61 [facility] Work Phone: CO2 [Moles/Vol] 31.0 mmol/L 21.0-32.0 [facility] Work Phone: Globulin (S) [Mass/Vol] 4.0 g/dL 2.2-4.2 [facility] Work Phone: Urea nitrogen/Creatinine [Mass ratio] 24.4 mg/mg 10-20 [facility] Work Phone: Laboratory - Hematology and Cell countson 08-25-2020 Basophils/100 WBC (Unsp spec) 0.7 % 0-1 [facility] Work Phone: Erythrocyte distribution width (RBC) [Entitic vol] 44.8 fL 35.1-43.9 [facility] Work Phone: Erythrocyte distribution width (RBC) [Ratio] 13.1 % 11.6-14.6 [facility] Work Phone: Immature granulocytes/100 WBC (Bld) 0.600 % 0.0-0.9 [facility] Work Phone: Comment on above: IG% - Immature Granu locytes (promyelocytes, myelocytes and metamyelocytes) > 1% indicates that a LEFT SHIFT is Present. MCH (RBC) [Entitic mass] 32.8 pg 27.0-32.0 [facility] Work Phone: Neutrophils/100 WBC (Bld) 64.2 % 47-70 [facility] Work Phone: Nucleated RBC/100 WBC (Bld) [Ratio] 0 % 0-5 [facility] Work Phone: MCHC Auto (RBC) [Mass/Vol]on 08-25-2020 MCHC (RBC) [Mass/Vol] 35.4 g/dL 32-36 [facility] Work Phone: No Panel Informationon 08-25 Estimated Creatinine Clearance Calc 146.22 ml/min [facility] Work Phone: Estimated GFR (MDRD) Amer 247 mL/min >60 [facility] Work Phone: Comment on above: GFR Calc Estimated GFR (MDRD) Non-Af Amer 204 mL/min >60 [facility] Work Phone: Comment on above: Non- GFR Calc Thyroid Stimulating Hormone (TSH) 11.50 uIU/mL 0.358-3.74 [facility] Work Phone: Platelets bldon 08-25-2020 Platelets (Bld) [#/Vol] 272 10*3/uL 150-450 [facility] Work Phone: Serum or plasma albumin yesi urement (mass/volume)on 08-25-2020 Albumin [Mass/Vol] 3.7 g/dL 3.2-5.0 [facility] Work Phone: Serum or plasma albumin/glob ulin mass ratioon 08-25-2020 Albumin/Globulin [Mass ratio] 0.9 {ratio} 0.9-2.4 [facility] Work Phone: Serum or plasma calcium yesi urement (mass/volume)on 08-25-2020 Calcium [Mass/Vol] 9.2 mg/dL 8.5-10.1 [facility] Work Phone: Serum or plasma creatinine m easurement (mass/volume)on 08-25-2020 Creatinine [Mass/Vol] 0.45 mg/dL 0.70-1.30 [facility] Work Phone: Comment on above: The validity of the calculated GFR & GFRAA in patients over 70 years has not been determined. Clinical correlation is essential. Serum or plasma urea nitroge n measurement (mass/volume)on 08-25-2020 Urea nitrogen [Mass/Vol] 11 mg/dL 7-18 [facility] Work Phone: Thin prep Papanicolaou smear with manual screeningon 08-25-2020 Thin prep Papanicolaou smear with manual screening 67 U/L 15-37 [facility] Work Phone: Thin prep Papanicolaou smear with manual screening 5 5-15 [facility] Work Phone: TSH (THYROID STIMULATING HOR NIK) ([id number])Ordered By: Chemical Dependency Professional on 08-15-2020 TSH Qn 20.900 {uIU/mL} Abnormal 0.450-4.50 0 [facility]; [facility] Work Phone: Comment on above: Aug 10; PATIENT NOT FASTINGPERFORMED BY: SAGRARIO LabLouisa GomezFhefxu5683 [facility] [id number] TSH (THYROID STIMULATING HOR NIK) ([id number])Ordered By: Chemical Dependency Professional on 06-23-2020 TSH Qn 42.700 {uIU/mL} Abnormal 0.450-4.50 0 [facility] Work Phone: Comment on above: PATIENT NOT FASTINGP ERFORMED BY: SAGRARIO Gomezlin6370 [facility] [id number] Anti TPO Antibody (58682)Ord ered By: Chemical Dependency Professional on 05-16-2020 TPO Ab Qn 17 {IU/mL} Normal 0-34 [facility] Work Phone: Comment on above: PATIENT NOT FASTINGP ERFORMED BY: SAGRARIO Gomezlin6370 [facility] [id number] TPO Ab Qn 17 [IU]/mL Normal 0-34 [facility]; [facility] Internal Medicine Work Phone: Comment on above: PATIENT NOT FASTINGP ERFORMED BY: SAGRARIO LabLouisa GomezCdnlcg3063 [facility] [id number] T3, FREE (TRIDOTHYRONINE) ([id number] 2648)Ordered By: Chemical Dependency Professional on 05-16-2020 Free T3 [Mass/Vol] 2.6 pg/mL Normal 2.0-4.4 [facility] Internal Medicine Work Phone: Comment on above: to be done 6weeks ( end april); PATIENT NOT FASTINGPERFORMED BY: SAGRARIO LabLouisa GomezWwbbpq1443 [facility] [id number] T4, FREE (THYROXINE) (43525) Ordered By: Chemical Dependency Professional on 05-16-2020 Free T4 [Mass/Vol] 1.13 ng/dL Normal 0.82-1.77 [facility] Internal Medicine Work Phone: Comment on above: to be done 6weeks ( end april ); PATIENT NOT FASTINGPERFORMED BY: Lab[facility] Unmptx5561 T4 MediaWake Forest [facility] [id number] TSH ([id number])Ordered By: Brooke carpio Sheltered Workshop Worker on 05-16-2020 TSH Qn 27.800 {uIU/mL} Abnormal 0.450-4.50 0 [facility] Work Phone: Comment on above: to be done 6 weeks ( end april); PATIENT NOT FASTINGPERFORMED BY: SAGRARIO [facility] Lxczvj5188 Dick aTyr PharmaWake Forest [facility] [id number] Iron measurement (mass/mass) on 05-19-2019 Iron (Unsp spec) [Mass/Mass] 56 ug/dL 65-175 [facility] Work Phone: Laboratory - Chemistry and C hemistry - challengeon 05-19-2019 Cobalamin (Vitamin B12) [Mass/Vol] 697 pg/mL 211-911 [facility] Free T4 [Mass/Vol] 1.04 ng/dL 0.76-1.46 [facility] No Panel Informationon 05-19 Folate 23.40 ng/mL 3.1-55.4 [facility] Total Iron Binding Capacity 325 ug/dL 250-450 [facility] Work Phone: Serum or plasma ferritin davey surement (mass/volume)on 05-19-2019 Ferritin [Mass/Vol] 559 ng/mL 26-388 [facility] Work Phone: Serum or plasma iron saturat ion measurement (mass fraction)on 05-19-2019 Iron saturation [Mass fraction] 17.2 % 15.0-55.0 [facility] Work Phone: Basophil percentageon 2018 Basophil percentage 4.4 mg/dL 2.5-4.9 [facility] Work Phone: Laboratory - Chemistry and C hemistry - challengeon 04-28-2019 Magnesium [Mass/Vol] 1.8 mg/dL 1.6-2.6 [facility] Work Phone: Absolute reticulocyte counto n 04-13-2019 Reticulocytes (Bld) [#/Vol] 0.00 10*3/uL 0-5 [facility] Laboratory - Hematology and Cell countson 04-06-2019 Erythrocyte distribution width (RBC) [Ratio] 13.2 % 11.6-14.6 [facility] No Panel Informationon 04-06 Red Cell Distribution Width Diff 42.8 fl 35.1-43.9 [facility] Review by pathologiston 03-23 Pathologist review Allen (Unsp spec) [Interp] Reviewed [facility] Comment on above: Previous reported re sult: Camille srinivasan Edited by: RGOARSENIO on 04/07/19:1024Leukopenia and neutropenia.Normocytic anemia.Clinical correlation necessary.Laurent Cope M.D. 04/07/19 AMENDED REPORT 04/07/19 1024 PATH REV previously reported as: Camille srinivasan Total cell counton 9 Cells counted Molgen (Bld/Tiss) [#] Not Reportable [facility] - Microbiology an d Antimicrobial susceptibilityon 04-05-2019 Bacteria identified Cx Nom (Bld) No growth in 5 days. [facility] Bacteria identified Cx Nom (Bld) No growth in 5 days. [facility] - Microbiology an d Antimicrobial susceptibilityon 03-31-2019 Bacteria identified Cx Nom (Bld) No growth in 5 days. [facility] Work Phone: No Panel Informationon 03-30 Differential Comment COMMENT [facility] Comment on above: SLIDE SCANNED - LYMP HOPENIA. AMMONIA ([id number])on 01-02-2019 Ammonia mass conc (P) 20 ug/dL Abnormal 27-102 Com prehensive Internal Medicine Work Phone: Comment on above: PATIENT NOT FASTINGP ERFORMED BY: [facility] Wnmkrr9866 Kap[facility] [id number] Metabolic Panel, Comprehensi ve (49729)on 01-02-2019 Albumin mass conc 4.4 g/dL Normal 3.5-5.5 Compreh ensive Internal Medicine Work Phone: Comment on above: PATIENT NOT FASTINGP ERFORMED BY: SAGRARIO [facility] Jvcnwg2697 Dick RoadDublin [place] [id number] Albumin/Globulin mass ratio 1.6 {ratio} Normal 1.2-2.2 [facility] Internal Medicine Work Phone: Comment on above: PATIENT NOT FASTINGP ERFORMED BY: CB [facility] Czlaab5291 Dick RoadDublin [place] [id number] ALP enzyme act/vol 60 [iU]/L Normal 39-117 [facility] Internal Medicine Work Phone: Comment on above: PATIENT NOT FASTINGP ERFORMED BY: CB [facility] Tuzhlb7934 Dick RoadDublin [place] [id number] ALT enzyme act/vol 21 [iU]/L Normal 0-44 [facility] Internal Medicine Work Phone: Comment on above: PATIENT NOT FASTINGP ERFORMED BY: SAGRARIO [facility] Maszcu6598 Dick RoadDublin [place] [id number] AST enzyme act/vol 21 [iU]/L Normal 0-40 [facility] Internal Medicine Work Phone: Comment on above: PATIENT NOT FASTINGP ERFORMED BY: SAGRARIO [facility] Rmqsko1434 Dick RoadDublin [place] [id number] Bilirubin mass conc 0.5 mg/dL Normal 0.0-1.2 Compr [facility] Internal Medicine Work Phone: Comment on above: PATIENT NOT FASTINGP ERFORMED BY: CB [facility] Kxwwkm9996 Dick RoadDublin [place] [id number] Calcium mass conc 9.0 mg/dL Normal 8.7-10.2 [facility] Internal Medicine Work Phone: Comment on above: PATIENT NOT FASTINGP ERFORMED BY: CB [facility] Enfwwf8139 Dick RoadDublin [place] [id number] Chloride molar conc 92 mmol/L Abnormal 96-106 Compr [facility] Internal Medicine Work Phone: Comment on above: PATIENT NOT FASTINGP ERFORMED BY: CB [facility] Dvnzdi8493 Dick RoadDublin [place] [id number] CO2 molar conc 22 mmol/L Normal 20-29 Comprehens sruthi Internal Medicine Work Phone: Comment on above: PATIENT NOT FASTINGP ERFORMED BY: SAGRARIO [facility] Vcvtfh2493 Dick RoadDublin [place] [id number] Creatinine mass conc 0.56 mg/dL Abnormal 0.76-1.27 Comp rehensive Internal Medicine Work Phone: Comment on above: PATIENT NOT FASTINGP ERFORMED BY: CB [facility] Pvqcyi4797 Dick RoadDuin [place] [id number] GFR/1.73 sq M predicted among blacks CKD-EPI vol rate/area (S/P/Bld) 134 mL/min/1.73 Normal Comprehe nsive Internal Medicine Work Phone: Comment on above: PATIENT NOT FASTINGP ERFORMED BY: SAGRARIO [facility] Yjqvgy6431 Dick RoadGood Hope Hospitalin [place] [id number] GFR/1.73 sq M predicted among non-blacks CKD-EPI vol rate/area (S/P/Bld) 116 mL/min/1.73 Normal [facility] Work Phone: Comment on above: PATIENT NOT FASTINGP ERFORMED BY: SAGRARIO [facility] Ehcpuj3289 Dick [facility] [place] [id number] Globulin mass conc (S) 2.8 g/dL Normal 1.5-4.5 Co [facility] instituteehens[facility] Internal Medicine Work Phone: Comment on above: PATIENT NOT FASTINGP ERFORMED BY: CB [facility] Zmgdaa6662 Dick [facility] [place] [id number] Glucose mass conc 101 mg/dL Abnormal 65-99 Compreh ensive Internal Medicine Work Phone: Comment on above: PATIENT NOT FASTINGP ERFORMED BY: CB [facility] Nrtegr4755 Dick [facility] [place] [id number] Potassium molar conc 4.6 mmol/L Normal 3.5-5.2 Comp rehensive Internal Medicine Work Phone: Comment on above: PATIENT NOT FASTINGP ERFORMED BY: SAGRARIO [facility] Zppbct4071 Dick [facility] [place] [id number] Protein mass conc 7.2 g/dL Normal 6.0-8.5 Compreh ensive Internal Medicine Work Phone: Comment on above: PATIENT NOT FASTINGP ERFORMED BY: SAGRARIO Cuevas6370 Dick RoadDublin [place] [id number] Sodium molar conc 129 mmol/L Abnormal 134-144 Compreh ensive Internal Medicine Work Phone: Comment on above: PATIENT NOT FASTINGP ERFORMED BY: SAGRARIO [facility] Wvkhyz7969 Dick RoadDublin [place] [id number] Urea nitrogen mass conc 6 mg/dL Normal 6-24 C omprehensive Internal Medicine Work Phone: Comment on above: PATIENT NOT FASTINGP ERFORMED BY: SAGRARIO LabCoshelia GomezErhkqu3748 Dick RoadDublin [place] [id number] Urea nitrogen/Creatinine mass ratio 11 mg/mg Normal 9-20 [facility] Work Phone: Comment on above: PATIENT NOT FASTINGP ERFORMED BY: SAGRARIO Andi Aenasw0495 Dick RoadDublin [place] [id number] Metabolic Panel, Comprehensi ve ([id number])Ordered By: Chemical Dependency Professional on 01-02-2019 ALP [Catalytic activity/Vol] 60 U/L Normal 39-117 [facility]; [facility] Work Phone: Comment on above: PATIENT NOT FASTINGP ERFORMED BY: SAGRARIO LabNilerp Cyxdjw4383 Dick RoadDublin [place] [id number] ALT [Catalytic activity/Vol] 21 U/L Normal 0-44 [facility]; [facility] Work Phone: Comment on above: PATIENT NOT FASTINGP ERFORMED BY: SAGRARIO [facility] Xopmeo4311 Dick RoadDublin [place] [id number] AST [Catalytic activity/Vol] 21 U/L Normal 0-40 [facility]; [facility] Work Phone: Comment on above: PATIENT NOT FASTINGP ERFORMED BY: SAGRARIO [facility] Xrkplm7298 Dick RoadDublin [place] [id number] VITAMIN B12 AND FOLATES (826 07)on 01-02-2019 Cobalamin (Vitamin B12) mass conc 348 pg/mL Normal 232-1245 [facility] Work Phone: Comment on above: PATIENT NOT FASTINGP ERFORMED BY: [facility] Zorpkk9590 Dick [facility]per[facility] Health ManagementVidant Pung[facility] Hospital [id number] Folate mass conc 7.9 ng/mL Normal Comprehe nsive Internal Medicine Work Phone: Comment on above: A serum folate jan ntration of less than 3.1 ng/mL isconsidered to represent clinical deficiency. PATIENT NOT FASTINGP ERFORMED BY: [facility] Npmder0543 Dick [facility] Health ManagementVidant Pung[facility] Hospital [id number] IMMUNOHISTOCHEMISTRYon 12-22 IMMUNOHISTOCHEMISTRY See Note Normal Comp rehensive Internal Medicine Work Phone: Comment on above: Patient: DEANNE JAMA : 1960 (58/M) Acct Num: [id number] Phys: Paige QUESADA,Shane Unit Num: [id number] Loc: LABSPEC Specimen: [id number] Received: 12/23/181136 Spec Type: IMMUNO TISSUES 1 TISSUES: A. Neck, NOS SPECIMEN INFORMATION: Tissue Source: A - Left neck mass fine needle aspiration Clinical Info: Left neck mass Specimen Number: [id number] CPT code: 25239, 54728 x11 METHODOLOGY: Deparaffinized sections of prefer/formalin-fixed tissue or PAP/DQ stained slides are incubated with monoclonal/polyclonal antibodies/oligonucleotide probes. Localization is made via biotin free immunoperoxidase method. Appropriate controls are performed and reacted as expected. Results on target cell population are indicated in the following table: RESULTS: ANTIBODY / CLONE RESULT Block A AE1-3 (AE1/AE3/PCK26) positive CK7 (OV-TL12/30) negative CK8 (22mnygD48) positive, weak CK20 (KS20.8) negative TTF-1 (8G7G3/1) negative Napsin A (Rabbit Polyclonal) negative HepPar (OCh1E5) negative RCC (PN-15) negative PSAP (PASE/4LJ) negative CK5-6 (D5 AND 1684) positive P16 (E6H4) negative P40 (BC28) positive, focal These tests were developed and their performance characteristics determined by [facility]. They may not have been cleared or approved by the U.S. Food and Drug Administration. The FDA has determined that such clearance or approval is not necessary. INTERPRETATION: A. 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 SJ:evy 12/24/18 PHYSICIAN AND INSTITUTION [facility] [address] [place] [address] Signed Laurent Cope MD 12/24/18 [facility] spital [address] [place], [place], [id number] Patient: DEANNE JAMA : 1960 (58/M) Acct Num: [id number] Phys: Paige QUESADA,Shane Unit Num: [id number] Loc: LABSPEC Specimen: [id number] Received: 12/22/18 - 1254 Spec Type: Fluid TISSUES 1 TISSUES: A. Neck, NOS B. Neck, NOS COMMENT A. Immunohistochemistry ([id number]) supports the above diagnosis. Case has been reviewed in consultation with Dr. Del Real who concurs with the above diagnosis. IDC:AM CYTOLOGY GROSS A - Received is 2 ml of cloudy red fluid labeled with the patient's name and DOBand designated per the requisition as left neck mass. Submitted for cytology preparation including cell block. B - Received are 12 smears labeled with the patient's name and designated per the requisition as left neck mass. Submitted for staining. / 12/22/18 TC:0 CPT: 97049, 81162, 27515 CYTOLOGY STUDY Slides are reviewed. DIAGNOSIS CYTOLOGY A. 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 See comment. B. 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 SJ:evy 12/23/18 HEADER OPERATION: Ultrasound-guided fine needle aspiration left neck mass PRE-OP DIAGNOSIS: Left neck mass R22.1 TISSUE SUBMITTED: A - Left neck mass fluid in syringe for cytology, B - Fine needle aspiration left neck mass (12 slides) Signed Laurent Cope MD 12/23/18 CBC W/Diff, Automatedon 03- Absolute Neut 5.0 {X10_3/uL} Normal 2.0-7.7 Compreh ensive Internal Medicine Work Phone: Comment on above: [facility] [address] [place], [address] Basophils/100 WBC (Bld) 0.4 % Normal 0-1 C omprehensive Internal Medicine Work Phone: Comment on above: [facility] [address] [place], [address] Eosinophils/100 WBC (Bld) 0.4 % Normal 0-5 [facility] Work Phone: Comment on above: [facility] [address]tkr[address] [place], [place], [phone]([phone]) Erythrocyte distribution width Ratio (RBC) 13.9 % Normal 11.6-14.6 [facility] Work Phone: Comment on above: [facility] Ecypiayems[address] [place], [address] Hematocrit Volume Fraction (Bld) 38.8 % Abnormal 40-54 [facility] Work Phone: Comment on above: [facility] [address] [place], [address] Hemoglobin mass conc (Bld) 13.7 g/dL Normal 13.0-16.5 [facility] Work Phone: Comment on above: [facility] [address] [place], [address] IM GRAN % 0.100 % Normal 0.0-0.9 [facility] Work Phone: Comment on above: IG% - Immature Granu locytes (promyelocytes, myelocytes andmetamyelocytes) > 1% indicates that a LEFT SHIFT is Present. [facility] [address] [place], [address] Lymphocytes #/vol (Bld) 2.18 {X10_3/ul} Normal 0.83-4. 51 [facility] Work Phone: Comment on above: [facility] [address] [place], [address] Lymphocytes/100 WBC (Bld) 25.9 % Normal 19-41 [facility] Work Phone: Comment on above: [facility] [address] [place], [address] MCH Entitic mass (RBC) 32.2 pg Abnormal 27.0-32.0 [facility] Work Phone: Comment on above: [facility] [address] [place], [address] MCHC mass conc (RBC) 35.3 {g/gl} Normal 32-36 [facility] Internal Medicine Work Phone: Comment on above: [facility] [address] [place], [address] MCV Entitic volume (RBC) 91.3 fL Normal 80-94 [facility] Work Phone: Comment on above: [facility] [address] [place], [address] Monocytes/100 WBC (Bld) 13.7 % Abnormal 0-10 [facility] Work Phone: Comment on above: [facility] [address] [place], [address] Neutrophils/100 WBC (Bld) 59.5 % Normal 47-70 [facility] Work Phone: Comment on above: [facility] [address] [place], [id number] Platelet mean volume Entitic volume (Bld) 9.7 fL Normal 6.2-12.0 Comprehensi ve Internal Medicine Work Phone: Comment on above: [facility] [address] [place], [id number] Platelets #/vol (Bld) 337 10*3/uL Normal 150-450 Co mprehensive Internal Medicine Work Phone: Comment on above: [facility] [address] [place], [address] RBC #/vol (Bld) 4.25 {M/mm3} Abnormal 4.6-6.2 Compreh ensive Internal Medicine Work Phone: Comment on above: [facility] [address] [place], [place], [id number] RDW SD 45.5 fL Abnormal 35.1-43.9 [facility] Work Phone: Comment on above: [facility] [address] [place], [place], [id number] WBC #/vol (Bld) 8.4 10*3/uL Normal 4.4-11.0 Comprehe nsive Internal Medicine Work Phone: Comment on above: [facility] [address] [place], [place], [id number] Comprehensive Metabolic Prof indarlyn 12-15-2018 Comprehensive metabolic 2000 panel 6 1 Normal 5-15 [facility] Work Phone: Comment on above: [facility] [address] [place], [place], [id number] Comprehensive metabolic 2000 panel 102 mg/dL Normal 74-106 [facility] Work Phone: Comment on above: Fasting Glucose resu lt from 100 to 125 mg/dLsuggests IMPAIRED HOMEOSTASIS per A.D.A. criteria.Please note revised GLUCOSE reference range ynnfihfzg06/02/2018. [facility] [address] [place], [place], [id number] Comprehensive metabolic 2000 panel 7 mg/dL Normal 7-18 [facility] Work Phone: Comment on above: [facility] [address] [place], [place], [phone] Comprehensive metabolic 2000 panel 0.57 mg/dL Abnormal 0.70-1.30 [facility] Work Phone: Comment on above: The validity of the calculated GFR AND GFRAA in patients over70 years has not been determined. Clinical correlation isessential. [facility] [address] [place], [place], [id number] Comprehensive metabolic 2000 panel 158 mL/min Normal [facility] Work Phone: Comment on above: Non- GFR Calc [facility] [address] [place], [place], [phone] Comprehensive metabolic 2000 panel 191 mL/min Normal [facility] Work Phone: Comment on above: GFR Calc [facility] [address] [place], [place], [phone] Comprehensive metabolic 2000 panel 12.3 {RATIO} Normal 10-20 [facility] Work Phone: Comment on above: [facility] [address] [place], [place], [id number] Comprehensive metabolic 2000 panel 7.2 g/dL Normal 6.4-8.2 [facility] Work Phone: Comment on above: [facility] [address] [place], [place], [phone] Comprehensive metabolic 2000 panel 3.8 g/dL Normal 3.2-5.0 [facility] Work Phone: Comment on above: [facility] [address] [place], [place], [phone] Comprehensive metabolic 2000 panel 3.4 g/dL Normal 2.2-4.2 [facility] Work Phone: Comment on above: [facility] [address] [place], [place], [address] Comprehensive metabolic 2000 panel 1.1 {RATIO} Normal 0.9-2.4 [facility] Work Phone: Comment on above: [facility] [address] [place], [place], [address] Comprehensive metabolic 2000 panel 8.5 mg/dL Normal 8.5-10.1 [facility] Work Phone: Comment on above: [facility] [address] [place], [place], [address] Comprehensive metabolic 2000 panel 25 U/L Normal 15-37 [facility] Work Phone: Comment on above: [facility] [address] [place], [place], [address] Comprehensive metabolic 2000 panel 59 U/L Normal 45-117 [facility] Work Phone: Comment on above: [facility] [address] [place], [place], [address] Comprehensive metabolic 2000 panel 31 U/L Normal 16-61 [facility] Work Phone: Comment on above: [facility] [address] [place], [place], [address] Comprehensive metabolic 2000 panel 0.50 mg/dL Normal 0.20-1.00 [facility] Work Phone: Comment on above: [facility] [address] [place], [place], [id number] Comprehensive metabolic 2000 panel 132 mmol/L Abnormal 136-145 [facility] Work Phone: Comment on above: [facility] [address] [place], [place], [address] Comprehensive metabolic 2000 panel 4.1 mmol/L Normal 3.5-5.1 [facility] Work Phone: Comment on above: [facility] [address] [place], [place], [address] Comprehensive metabolic 2000 panel 97 mmol/L Abnormal 98-107 [facility] Work Phone: Comment on above: [facility] [address] [place], [place], [address] Comprehensive metabolic 2000 panel 29.0 mmol/L Normal 21.0-32.0 [facility] Work Phone: Comment on above: [facility] [address] [place], [place], [phone] Bacteria identified Anaer cx Nom (Unsp spec) Anaerobic Culture Anaerobic cocci [facility] Work Phone: Anaerobic microbial culture No anaerobic bacteria isolated. [facility] Work Phone: Bacteria identified Cx Nom ( Wound) Wound Culture Proteus vulgaris [facility] Work Phone: Wound Culture Pseudomonas aeroginosa [facility] Work Phone: Wound Culture Meth. resistant Stap h. aureus [facility] Work Phone: Wound Culture Positive [facility] Work Phone: Wound Culture Streptococcus agalactiae (B) [facility] Work Phone: Gram stain for investigation of transfusion reaction Microscopic observation Gram stain Nom (Unsp spec) [facility] Work Phone: Laboratory - Microbiology an d Antimicrobial susceptibility Bacteria identified Cx Nom (Bld) No growth in 5 days. [facility] Work Phone: Vital Signs Date Time Vital Sign Value Performing Clinician Facility 03-01-2025 08:43-0400 Body height 167.6 cm Rachel Brooks MD Work Phone: [facility] 03-01-2025 08:43-0400 Body mass index (BMI) [Ratio] 18.72 kg/m2 Rachel Brooks MD Work Phone: [facility] 03-01-2025 08:43-0400 Body weight 52.62 kg Rachel Brooks MD Work Phone: [facility] 02-02-2025 10:41-0400 Body height 165.1 cm Sadie Jack [employer]OTH CLEANER-C Work Phone: [facility] 02-02-2025 10:41-0400 Body weight 54.65 kg Sadie Jack [employer]OTH CLE[employer]ER-C Work Phone: [facility] 02-02-2025 09:30-0400 Body height 165.1 cm Sadie Jack [employer]OTH CLE[employer]ER-C Work Phone: [facility] 02-02-2025 09:30-0400 Body mass index (BMI) [Ratio] 20 kg/m2 Sadie Jack [employer]OTH CLE[employer]ER-C Work Phone: [facility] 02-02-2025 09:30-0400 Body temperature 98.4 [degF] Sadie Jack [employer]OTH CLEANER-C Work Phone: [facility] 02-02-2025 09:30-0400 Body weight 54.65 kg Sadie Jack [employer]OTH CLE[employer]ER-C Work Phone: [facility] 02-02-2025 09:30-0400 Diastolic blood pressure 80 mm[Hg] Sadie Jack [employer]OTH CLE[employer]ER-C Work Phone: [facility] 02-02-2025 09:30-0400 Heart rate 70 /min Sadie Jack [employer]OTH CLE[employer]ER-C Work Phone: [facility] 02-02-2025 09:30-0400 Respiratory rate 18 /min Sadie Jack [employer]OTH CLE[employer]ER-C Work Phone: [facility] 02-02-2025 09:30-0400 SaO2% (BldA) [Mass fraction] 100 % Sadie Jack [employer]OTH CLE[employer]ER-C Work Phone: [facility] 02-02-2025 09:30-0400 Systolic blood pressure 148 mm[Hg] Sadie Jack [employer]OTH CLE[employer]ER-C Work Phone: [facility] 01-05-2025 11:22-0400 Body weight 55.5 kg Sadie Jack [employer]OTH CLE[employer]ER-C Work Phone: [facility] 01-05-2025 11:08-0400 Body mass index (BMI) [Ratio] 20.1 kg/m2 Sadie Jack [employer]OTH CLE[employer]ER-C Work Phone: [facility] 01-05-2025 11:08-0400 Body temperature 99.7 [degF] Sadie Jack [employer]OTH CLE[employer]ER-C Work Phone: [facility] 01-05-2025 11:08-0400 Body weight 54.88 kg Sadie Jack [employer]OTH CLE[employer]ER-C Work Phone: [facility] 01-05-2025 11:08-0400 Diastolic blood pressure 71 mm[Hg] Sadie Jack [employer]OTH CLE[employer]ER-C Work Phone: [facility] 01-05-2025 11:08-0400 Heart rate 91 /min Sadie Jack [employer] CLE[employer]ER-C Work Phone: [facility] 01-05-2025 11:08-0400 Respiratory rate 16 /min Sadie Wolffam [employer]OTH CLEANER-C Work Phone: [facility] 01-05-2025 11:08-0400 SaO2% (BldA) [Mass fraction] 97 % Sadie Wolffam [employer]OTH CLE[employer]ER-C Work Phone: [facility] 01-05-2025 11:08-0400 Systolic blood pressure 123 mm[Hg] Sadie Wolffam BOOTH CLE[employer]ER-C Work Phone: [facility] 10-21-2024 07:50-0500 Body temperature 97.1 [degF] Dr. Quincy Simpson MD Work Phone: [facility] 10-21-2024 07:50-0500 Diastolic blood pressure 62 mm[Hg] Dr. Quincy Simpson MD Work Phone: [facility] 10-21-2024 07:50-0500 Heart rate 58 /min Dr. Quincy Simpson MD Work Phone: 6(843)588-707250 [place] [address] 10-21-2024 07:50-0500 Respiratory rate 16 /min Dr. Quincy Simpson MD Work Phone: 3(354)534-612911 [address] 10-21-2024 07:50-0500 SaO2% (BldA) [Mass fraction] 98 % Dr. Quincy Simpson MD Work Phone: 4(230)452-203750 [place] [address] 10-21-2024 07:50-0500 Systolic blood pressure 118 mm[Hg] Dr. Quincy Simpson MD Work Phone: 8(280)930-632077 [place] [address] 10-21-2024 05:51-0500 Body height 165.[address] Quincy Simpson MD Work Phone: 0(792)601-831377 [place] [address] 10-21-2024 05:51-0500 Body mass index (BMI) [Ratio] 19.8 kg/m2 Dr. Quincy Simpson MD Work Phone: 3(370)921-918450 [place] [address] 10-21-2024 05:51-0500 Body weight [address] Quincy Simpson MD Work Phone: 9(997)889-792577 [place] [address] 09-28-2024 12:06-0500 Body mass index (BMI) [Ratio] 19.8 kg/m2 Dr. Quincy Simpson MD Work Phone: 0(754)069-109350 [place] [address] 09-28-2024 12:06-0500 Body temperature 98.9 [degF] Dr. Quincy Simpson MD Work Phone: 5(996)835-566050 [place] [address] 09-28-2024 12:06-0500 Body weight 55.[address] Quincy Simpson MD Work Phone: 2(764)153-893350 [place] [address] 09-28-2024 12:06-0500 Diastolic blood pressure 72 mm[Hg] Dr. Quincy Simpson MD Work Phone: [facility] 09-28-2024 12:06-0500 Heart rate 85 /min Dr. Quincy Simpson MD Work Phone: [facility] 09-28-2024 12:06-0500 Respiratory rate 16 /min Dr. Quincy Simpson MD Work Phone: [facility] 09-28-2024 12:06-0500 SaO2% (BldA) [Mass fraction] 98 % Dr. Quincy Simpson MD Work Phone: [facility] 09-28-2024 12:06-0500 Systolic blood pressure 124 mm[Hg] Dr. Quincy Simpson MD Work Phone: [facility] 09-15-2024 10:15-0500 Diastolic blood pressure 58 mm[Hg] Dr. Quincy Simpson MD Work Phone: 6(289)347-922111 [address] 09-15-2024 10:15-0500 Heart rate 68 /min Dr. Quincy Simpson MD Work Phone: [facility] 09-15-2024 10:15-0500 Respiratory rate 23 /min Dr. Quincy Simpson MD Work Phone: [facility] 09-15-2024 10:15-0500 Systolic blood pressure 124 mm[Hg] Dr. Quincy Simpson MD Work Phone: [facility] 09-15-2024 09:24-0500 Body mass index (BMI) [Ratio] 19.8 kg/m2 Dr. Quincy Simpson MD Work Phone: [facility] 09-15-2024 09:24-0500 Body temperature 98.5 [degF] Dr. Quincy Simpson MD Work Phone: [facility] 09-15-2024 09:24-0500 Body weight 56.[address] Quincy Simpson MD Work Phone: [facility] 09-15-2024 09:24-0500 SaO2% (BldA) [Mass fraction] 97 % Dr. Quincy Simpson MD Work Phone: [facility] 09-07-2024 14:03-0500 Body weight 55.[address] Quincy Simpson MD Work Phone: [facility] 09-07-2024 13:44-0500 Body mass index (BMI) [Ratio] 20.3 kg/m2 Dr. Quincy Simpson MD Work Phone: [facility] 09-07-2024 13:44-0500 Body temperature 97.5 [degF] Dr. Quincy Simpson MD Work Phone: [facility] 09-07-2024 13:44-0500 Body weight 55.[address] Quincy Simpson MD Work Phone: [facility] 09-07-2024 13:44-0500 Diastolic blood pressure 74 mm[Hg] Dr. Quincy Simpson MD Work Phone: [facility] 09-07-2024 13:44-0500 Heart rate 78 /min Dr. Quincy Simpson MD Work Phone: [facility] 09-07-2024 13:44-0500 Respiratory rate 16 /min Dr. Quincy Simpson MD Work Phone: [facility] 09-07-2024 13:44-0500 SaO2% (BldA) [Mass fraction] 97 % Dr. Quincy Simpson MD Work Phone: [facility] 09-07-2024 13:44-0500 Systolic blood pressure 146 mm[Hg] Dr. Quincy Simpson MD Work Phone: [facility] 08-31-2024 09:04-0500 Body mass index (BMI) [Ratio] 20.27 kg/m2 Rachel Brooks MD Work Phone: [facility] 08-31-2024 09:04-0500 Body weight 56.97 kg Rachel Brooks MD Work Phone: [facility] 08-31-2024 09:04-0500 Diastolic blood pressure 75 mm[Hg] Rachel Brooks MD Work Phone: [facility] 08-31-2024 09:04-0500 Heart rate 86 /min Rachel Brooks MD Work Phone: [facility] 08-31-2024 09:04-0500 Systolic blood pressure 151 mm[Hg] Rachel Boroks MD Work Phone: [facility] 04-13-2024 13:33-0400 Body height 167.6 cm Rachel Brooks MD Work Phone: [facility] 04-13-2024 13:33-0400 Body mass index (BMI) [Ratio] 20.98 kg/m2 Rachel Brooks MD Work Phone: [facility] 04-13-2024 13:33-0400 Body weight 58.97 kg Rachel Brooks MD Work Phone: [facility] 09-03-2023 14:50-0500 Body temperature 97.3 [degF] [employer] CLE[employer] Kya Ciesa BOOTH CLEANER Work Phone: [facility] 09-03-2023 14:50-0500 Diastolic blood pressure 66 mm[Hg] [employer] CLE[employer]ER[employer]C Kya Ciesa BOOTH CLEANER Work Phone: [facility] 09-03-2023 14:50-0500 Heart rate 57 /min [employer] Kya Ciesa BOOTH CLEANER Work Phone: [facility] 09-03-2023 14:50-0500 Respiratory rate 16 /min [employer] CLE[employer]C Kya Ciesa BOOTH CLEANER Work Phone: [facility] 09-03-2023 14:50-0500 SaO2% (BldA) [Mass fraction] 100 % [employer] CLE[employer] Kya Ciesa BOOTH CLEANER Work Phone: [facility] 09-03-2023 14:50-0500 Systolic blood pressure 105 mm[Hg] [employer] CLE[employer]ER[employer]C Kya Ciesa BOOTH CLEANER Work Phone: [facility] 09-03-2023 13:18-0500 Body height 165.1 cm [employer] CLE[employer]C Kya Posadasa BOOTH CLEANER Work Phone: [facility] 09-03-2023 13:18-0500 Body mass index (BMI) [Ratio] 20.9 kg/m2 [employer] CLE[employer]C Kya Posadasa BOOTH CLEANER Work Phone: [facility] 09-03-2023 13:18-0500 Body weight 57.1 kg [employer] CLE[employer]ER[employer]C Kya Posadasa BOOTH CLEANER Work Phone: [facility] 09-02-2023 13:55-0500 Body height 167.6 cm Rachel Brooks MD Work Phone: [facility] 09-02-2023 13:55-0500 Body mass index (BMI) [Ratio] 20.14 kg/m2 Rachel Brooks MD Work Phone: [facility] 09-02-2023 13:55-0500 Body weight 56.61 kg Rachel Brooks MD Work Phone: [facility] 08-05-2023 09:05-0500 Body mass index (BMI) [Ratio] 21.9 kg/m2 [employer] CLE[employer]C Kya Posadasa BOOTH CLEANER Work Phone: [facility] 08-05-2023 09:05-0500 Body temperature 98.6 [degF] [employer] CLE[employer]ER[employer]C Kya Posadasa BOOTH CLEANER Work Phone: [facility] 08-05-2023 09:05-0500 Body weight 57.86 kg [employer] CLE[employer]ER[employer]C Kya Posadasa BOOTH CLEANER Work Phone: [facility] 08-05-2023 09:05-0500 Diastolic blood pressure 75 mm[Hg] [employer] CLE[employer]ER[employer]C Kya Posadasa BOOTH CLEANER Work Phone: [facility] 08-05-2023 09:05-0500 Heart rate 74 /min [employer] Kya Posadasa BOOTH CLEANER Work Phone: [facility] 08-05-2023 09:05-0500 Respiratory rate 18 /min [employer] CLE[employer]C Kya Posadasa BOOTH CLEANER Work Phone: [facility] 08-05-2023 09:05-0500 SaO2% (BldA) [Mass fraction] 100 % [employer] CLE[employer]C Kya Gonzalez BOOTH CLEANER Work Phone: [facility] 08-05-2023 09:05-0500 Systolic blood pressure 138 mm[Hg] BO[employer] CLE[employer]ER-C Kya Gonzalez BOOTH CLEANER Work Phone: [facility] 07-22-2023 07:57-0400 Body height 170.18 cm Koki Morgan MA [facility]; [facility] Work Phone: 07-22-2023 07:57-0400 Body mass index (BMI) [Ratio] 19.48 kg/m2 Koki Morgan MA [facility]; [facility] Work Phone: 07-22-2023 07:57-0400 Body mass index (BMI) [Ratio] 20.26 kg/m2 Koki Morgan MA [facility]; [facility] Work Phone: 07-22-2023 07:57-0400 Body surface area Derived from formula 1.65 m2 Koki Morgan MA [facility]; [facility] Work Phone: 07-22-2023 07:57-0400 Body surface area Derived from formula 1.68 m2 Koki Morgan MA [facility]; [facility] Work Phone: 07-22-2023 07:57-0400 Body temperature 98.6 [degF] Koki Morgan MA [facility]; [facility] Work Phone: 07-22-2023 07:57-0400 Body weight 56.43 kg Koki Morgan MA [facility]; [facility] Work Phone: 07-22-2023 07:57-0400 Body weight 58.68 kg Koki Morgan MA [facility]; [facility] Work Phone: 07-22-2023 07:57-0400 Diastolic blood pressure 70 mm[Hg] Koki Morgan MA [facility]; [facility] Work Phone: 07-22-2023 07:57-0400 Heart rate 68 /min Koki Morgan MA [facility]; [facility] Work Phone: 07-22-2023 07:57-0400 SaO2% (BldA) [Mass fraction] 99 % Koki Morgan MA [facility]; [facility] Work Phone: 07-22-2023 07:57-0400 Systolic blood pressure 110 mm[Hg] Koki Morgan MA [facility]; [facility] Work Phone: 05-22-2023 11:03-0400 Body height 162.56 cm [employer]C Kya Ciesa BOOTH CLEANER Work Phone: [facility] 05-22-2023 11:03-0400 Body mass index (BMI) [Ratio] 21.8 kg/m2 [employer] CLE[employer]C Kya Ciesa BOOTH CLEANER Work Phone: [facility] 05-22-2023 11:03-0400 Body temperature 99.4 [degF] [employer] CLE[employer]ER[employer]C Kya Ciesa BOOTH CLEANER Work Phone: [facility] 05-22-2023 11:03-0400 Body weight 57.66 kg [employer] CLE[employer]ER-C Kya Ciesa BOOTH CLEANER Work Phone: [facility] 05-22-2023 11:03-0400 Diastolic blood pressure 73 mm[Hg] [employer] CLE[employer]ER-C Kya Ciesa BOOTH CLEANER Work Phone: [facility] 05-22-2023 11:03-0400 Heart rate 79 /min [employer] CLE[employer]C Kya Ciesa BOOTH CLEANER Work Phone: [facility] 05-22-2023 11:03-0400 Respiratory rate 18 /min [employer] CLE[employer]ER[employer]C Kya Ciesa BOOTH CLEANER Work Phone: [facility] 05-22-2023 11:03-0400 SaO2% (BldA) [Mass fraction] 100 % [employer] CLE[employer]ER-C Kya Ciesa BOOTH CLEANER Work Phone: [facility] 05-22-2023 11:03-0400 Systolic blood pressure 144 mm[Hg] [employer] CLE[employer]ER-C Kya Ciesa BOOTH CLEANER Work Phone: [facility] 04-10-2023 08:36-0400 Body mass index (BMI) [Ratio] 22.3 kg/m2 [employer] CLE[employer]ER[employer]C Kya Ciesa BOOTH CLEANER Work Phone: [facility] 04-10-2023 08:36-0400 Diastolic blood pressure 62 mm[Hg] [employer] CLE[employer]ER-C Kya Ciesa BOOTH CLEANER Work Phone: [facility] 04-10-2023 08:36-0400 Heart rate 79 /min [employer] CLE[employer]C Kya Ciesa BOOTH CLEANER Work Phone: [facility] 04-10-2023 08:36-0400 Respiratory rate 16 /min [employer] CLE[employer]ER-C Kya Ciesa BOOTH CLEANER Work Phone: [facility] 04-10-2023 08:36-0400 Systolic blood pressure 132 mm[Hg] BO[employer] CLE[employer]ER-C Kya Ciesa BOOTH CLEANER Work Phone: [facility] 04-03-2023 08:38-0400 Body temperature 97.9 [degF] BOOTH CLE[employer]ER-C Kya Riveroesa BOOTH CLEANER Work Phone: [facility] 03-23-2023 00:56-0400 Body weight 58.96 kg [employer]OTH CLE[employer]ER-C Kya Riveroesa BOOTH CLEANER Work Phone: [facility] 03-20-2023 09:07-0400 Body mass index (BMI) [Ratio] 22.3 kg/m2 [employer] CLE[employer]ER-C Kya Ciesa BOOTH CLEANER Work Phone: [facility] 03-20-2023 09:07-0400 Diastolic blood pressure 62 mm[Hg] [employer] CLE[employer]ER-C Kya Ciesa BOOTH CLEANER Work Phone: [facility] 03-20-2023 09:07-0400 Heart rate 62 /min [employer] CLE[employer]ER-C Kya Ciesa BOOTH CLEANER Work Phone: [facility] 03-20-2023 09:07-0400 Respiratory rate 16 /min [employer] CLE[employer]ER-C Kya Ciesa BOOTH CLEANER Work Phone: [facility] 03-20-2023 09:07-0400 Systolic blood pressure 113 mm[Hg] BOOTH CLE[employer]ER-C Kya Gonzalez BOOTH CLEANER Work Phone: [facility] 03-13-2023 09:28-0400 Body temperature 97.7 [degF] BOOTH CLE[employer]ER-C Kya Gonzalez BOOTH CLEANER Work Phone: [facility] 03-06-2023 08:52-0400 Body height 166.37 cm Kya Gonzalez Work Phone: GX-Ooabvszkyiqrfb-Kw mike Work Phone: 03-06-2023 08:52-0400 Body mass index (BMI) [Ratio] 20.48 kg/m2 Kya Gonzalez Work Phone: SX-Gsehvevdstzvvk-Yo mike Work Phone: 03-06-2023 08:52-0400 Body surface area Derived from formula 1.63 m2 Kya Gonzalez Work Phone: TN-Uzgayjpursjomp-Sy mike Work Phone: 03-06-2023 08:52-0400 Body temperature 97.4 [degF] Kya Gonzalez Work Phone: UM-Cbgsauibjxjezr-Fq mike Work Phone: 03-06-2023 08:52-0400 Body weight 56.7 kg Kya Gonzalez Work Phone: ND-Jeuigquavjytrv-Bm mike Work Phone: 03-06-2023 08:52-0400 Diastolic blood pressure 79 mm[Hg] Kya Gonzalez Work Phone: QS-Bvpahjnwhchogv-Ws mike Work Phone: 03-06-2023 08:52-0400 Heart rate 76 /min Kya Gonzalez Work Phone: LO-Wrggavynxfwlok-Nn mike Work Phone: 03-06-2023 08:52-0400 Systolic blood pressure 132 mm[Hg] Kya Gonzalez Work Phone: PQ-Xttfgakuactnpt-Ad mike Work Phone: 02-25-2023 13:12-0400 Body mass index (BMI) [Ratio] 20.52 kg/m2 Kya Gonzalez Work Phone: GJ-Piitsvtycmfqiw-Iq [place] Work Phone: 02-25-2023 13:12-0400 Body surface area Derived from formula 1.63 m2 Kya Gonzalez Work Phone: HU-Bcfwxtyzodupku-Lc [place] Work Phone: 02-25-2023 13:12-0400 Body weight 56.79 kg Kya Gonzalez Work Phone: PW-Zhntbkzdosjqbf-Oh [place] Work Phone: 02-21-2023 00:25-0400 Body weight 58.96 kg [employer] CLE[employer]ER-C Kya Gonzalez BOOTH CLEANER Work Phone: [facility] 02-20-2023 08:46-0400 Body mass index (BMI) [Ratio] 22.3 kg/m2 [employer] CLE[employer]ER-C Kya Gonzalez BOOTH CLEANER Work Phone: [facility] 02-20-2023 08:46-0400 Body temperature 97.5 [degF] [employer] CLE[employer]ER-C Kya Gonzalez BOOTH CLEANER Work Phone: [facility] 02-20-2023 08:46-0400 Diastolic blood pressure 60 mm[Hg] BOOTH CLE[employer]ER-C Kya Posadasa BOOTH CLEANER Work Phone: [facility] 02-20-2023 08:46-0400 Heart rate 74 /min [employer] CLE[employer]ER[employer]C Kya Posadasa BOOTH CLEANER Work Phone: [facility] 02-20-2023 08:46-0400 Respiratory rate 18 /min [employer] CLE[employer]ER[employer]C Kya Posadasa BOOTH CLEANER Work Phone: [facility] 02-20-2023 08:46-0400 Systolic blood pressure 126 mm[Hg] BO[employer] CLE[employer]ER-C Kya Posadasa BOOTH CLEANER Work Phone: [facility] 01-31-2023 10:04-0400 Body height 162.56 cm [employer]OTH CLE[employer]ER-C Kya Ciesa BOOTH CLEANER Work Phone: [facility] 01-31-2023 10:00-0400 Body mass index (BMI) [Ratio] 21.5 kg/m2 [employer] CLE[employer]ER-C Kya Ciesa BOOTH CLEANER Work Phone: [facility] 01-31-2023 10:00-0400 Body temperature 96.8 [degF] [employer] CLE[employer]ER-C Kya Ciesa BOOTH CLEANER Work Phone: [facility] 01-31-2023 10:00-0400 Body weight 56.86 kg BOOTH CLE[employer]ER-C Kya Riveroesa BOOTH CLEANER Work Phone: [facility] 01-31-2023 10:00-0400 Diastolic blood pressure 80 mm[Hg] BO[employer] CLE[employer]ER-C Kya Riveroesa BOOTH CLEANER Work Phone: [facility] 01-31-2023 10:00-0400 Heart rate 81 /min [employer] CLE[employer]ER-C Kya Riveroesa BOOTH CLEANER Work Phone: [facility] 01-31-2023 10:00-0400 Respiratory rate 16 /min [employer] CLE[employer]ER-C Kya Riveroesa BOOTH CLEANER Work Phone: [facility] 01-31-2023 10:00-0400 Systolic blood pressure 121 mm[Hg] [employer] Kya Ciesa [employer] Work Phone: [facility] 01-30-2023 08:27-0400 Body mass index (BMI) [Ratio] 22.3 kg/m2 [employer] Kya Ciesa [employer] Work Phone: [facility] 01-30-2023 08:27-0400 Body temperature 99 [degF] [employer] Kya Ciesa [employer] Work Phone: [facility] 01-30-2023 08:27-0400 Diastolic blood pressure 62 mm[Hg] [employer] Kya Gonzalez [employer] Work Phone: [facility] 01-30-2023 08:27-0400 Heart rate 72 /min [employer] Kya Gonzalez [employer] Work Phone: [facility] 01-30-2023 08:27-0400 Respiratory rate 18 /min [employer] Kya Gonzalez [employer] Work Phone: [facility] 01-30-2023 08:27-0400 Systolic blood pressure 115 mm[Hg] [employer] Kya Gonzalez [employer] Work Phone: [facility] 01-28-2023 16:16-0400 Body height 166.37 cm Kya Gonzalez Work Phone: ZC-Rsszudpubmhrox-Jj mike [address] Work Phone: 01-28-2023 16:16-0400 Body mass index (BMI) [Ratio] 20.32 kg/m2 Kya Gonzalez Work Phone: YE-Lepxbgyqhyfhns-Ae mike [address] Work Phone: 01-28-2023 16:16-0400 Body surface area Derived from formula 1.62 m2 Kya Gonzalez Work Phone: TP-Icixsliclqacxs-Bd mike [address] Work Phone: 01-28-2023 16:16-0400 Body weight 56.25 kg Kya Gonzalez Work Phone: FE-Ssbtajylfcuaae-Uk mike [address] Work Phone: 01-21-2023 00:26-0400 Body weight 58.96 kg [employer] Kya Gonzalez [employer] Work Phone: [facility] 01-16-2023 08:32-0400 Body mass index (BMI) [Ratio] 22.3 kg/m2 [employer] Kya Gonzalez [employer] Work Phone: [facility] 01-16-2023 08:32-0400 Body temperature 97 [degF] [employer]C Kya Gonzalez [employer] Work Phone: [facility] 01-16-2023 08:32-0400 Diastolic blood pressure 55 mm[Hg] [employer]C Kya Gonzalez [employer] Work Phone: [facility] 01-16-2023 08:32-0400 Heart rate 73 /min [employer] Kya Gonzalez [employer] Work Phone: [facility] 01-16-2023 08:32-0400 Respiratory rate 18 /min [employer] Kya Gonzalez [employer] Work Phone: [facility] 01-16-2023 08:32-0400 Systolic blood pressure 117 mm[Hg] [employer]C Kya Gonzalez [employer] Work Phone: [facility] 01-16-2023 07:51-0400 Body height 170.18 cm Koki Morgan MA [facility] Work Phone: 01-16-2023 07:51-0400 Body mass index (BMI) [Ratio] 19.48 kg/m2 Koki Morgan MA [facility] Work Phone: 01-16-2023 07:51-0400 Body surface area Derived from formula 1.65 m2 Koki Morgan MA [facility] Work Phone: 01-16-2023 07:51-0400 Body temperature 96.8 [degF] Koki Morgan MA [facility] Work Phone: 01-16-2023 07:51-0400 Body weight 56.43 kg Koki Morgan MA [facility]; [facility] Work Phone: 01-16-2023 07:51-0400 Diastolic blood pressure 70 mm[Hg] Koki Morgan MA [facility] Work Phone: 01-16-2023 07:51-0400 Heart rate 86 /min Koki Morgan MA [facility] Work Phone: 01-16-2023 07:51-0400 SaO2% (BldA) [Mass fraction] 99 % Koki Morgan MA [facility] Work Phone: 01-16-2023 07:51-0400 Systolic blood pressure 130 mm[Hg] Koki Morgan MA [facility] Work Phone: 12-22-2022 01:22-0400 Body weight 58.96 kg [employer] Kya Ciesa [employer] Work Phone: [facility] 12-12-2022 08:52-0400 Body mass index (BMI) [Ratio] 22.3 kg/m2 [employer] Kya Ciesa [employer] Work Phone: [facility] 12-12-2022 08:52-0400 Body temperature 96.9 [degF] [employer]C Kya Ciesa [employer] Work Phone: [facility] 12-12-2022 08:52-0400 Diastolic blood pressure 66 mm[Hg] [employer]C Kya Ciesa [employer] Work Phone: [facility] 12-12-2022 08:52-0400 Heart rate 77 /min [employer] Kya Ciesa [employer] Work Phone: [facility] 12-12-2022 08:52-0400 Systolic blood pressure 113 mm[Hg] [employer]C Kya Ciesa [employer] Work Phone: [facility] 11-28-2022 08:23-0500 Respiratory rate 18 /min [employer] Kya Ciesa [employer] Work Phone: [facility] 11-21-2022 13:10-0500 Body height 162.56 cm [employer] Kya Ciesa [employer] Work Phone: [facility] 11-21-2022 13:09-0500 Body mass index (BMI) [Ratio] 21.5 kg/m2 [employer] Kya Ciesa [employer] Work Phone: [facility] 11-21-2022 13:09-0500 Body temperature 98.4 [degF] [employer]C Kya Posadasa [employer] Work Phone: [facility] 11-21-2022 13:09-0500 Body weight 56.86 kg [employer]C Kya Posadasa [employer] Work Phone: [facility] 11-21-2022 13:09-0500 Diastolic blood pressure 76 mm[Hg] [employer]C Kya Posadasa [employer]ER Work Phone: [facility] 11-21-2022 13:09-0500 Heart rate 78 /min [employer] Kya Posadasa [employer] Work Phone: [facility] 11-21-2022 13:09-0500 Respiratory rate 18 /min [employer]C Kya Posadasa [employer] Work Phone: [facility] 11-21-2022 13:09-0500 SaO2% (BldA) [Mass fraction] 100 % [employer]C Kya Posadasa [employer] CLE[employer]ER Work Phone: [facility] 11-21-2022 13:09-0500 Systolic blood pressure 129 mm[Hg] [employer]C Kya Posadasa [employer] CLE[employer]ER Work Phone: [facility] 11-21-2022 00:17-0500 Body weight 58.96 kg [employer]C Kya Posadasa [employer] Work Phone: [facility] 11-14-2022 08:59-0500 Body mass index (BMI) [Ratio] 22.3 kg/m2 [employer] Kya Posadasa [employer] Work Phone: [facility] 11-14-2022 08:59-0500 Body temperature 97.6 [degF] [employer]C Kya Posadasa [employer] CLE[employer] Work Phone: [facility] 11-14-2022 08:59-0500 Diastolic blood pressure 53 mm[Hg] [employer]C Kya Posadasa [employer] CLE[employer]ER Work Phone: [facility] 11-14-2022 08:59-0500 Heart rate 75 /min [employer]C Kya Riveroesa [employer] CLE[employer]ER Work Phone: [facility] 11-14-2022 08:59-0500 Systolic blood pressure 113 mm[Hg] [employer]ER[employer]C Kya Posadasa [employer] CLE[employer]ER Work Phone: [facility] 11-05-2022 08:05-0500 Body height 162.56 cm [employer] CLE[employer]C Kya Riveroesa [employer] CLE[employer]ER Work Phone: [facility] 11-05-2022 08:05-0500 Body weight 57.6 kg [employer]C Kya Posadasa [employer] CLE[employer] Work Phone: [facility] 11-01-2022 09:33-0500 Body mass index (BMI) [Ratio] 21.8 kg/m2 [employer] Kya Posadasa [employer] CLE[employer]ER Work Phone: [facility] 11-01-2022 09:33-0500 Body temperature 97.3 [degF] [employer]C Kya Riveroesa [employer] CLE[employer]ER Work Phone: [facility] 11-01-2022 09:33-0500 Body weight 57.6 kg [employer]C Kya Posadasa [employer] Work Phone: [facility] 11-01-2022 09:33-0500 Diastolic blood pressure 57 mm[Hg] [employer]C Kya Posadasa [employer] CLE[employer]ER Work Phone: [facility] 11-01-2022 09:33-0500 Heart rate 91 /min [employer] Kya Posadasa [employer] CLE[employer] Work Phone: [facility] 11-01-2022 09:33-0500 Respiratory rate 18 /min [employer]C Kya Posadasa [employer] Work Phone: [facility] 11-01-2022 09:33-0500 SaO2% (BldA) [Mass fraction] 94 % [employer]C Kya Posadasa [employer] CLE[employer]ER Work Phone: [facility] 11-01-2022 09:33-0500 Systolic blood pressure 117 mm[Hg] [employer] CLE[employer]ER[employer]C Kya Riveroesa [employer] CLE[employer]ER Work Phone: [facility] 10-24-2022 00:23-0500 Body weight 58.96 kg [employer]C Kya Ciesa [employer] CLE[employer] Work Phone: [facility] 10-24-2022 00:23-0500 Respiratory rate 16 /min [employer]C Kya Posadasa [employer] Work Phone: [facility] 10-10-2022 08:29-0500 Body mass index (BMI) [Ratio] 22.3 kg/m2 [employer] Kya Ciesa [employer] CLE[employer] Work Phone: [facility] 10-10-2022 08:29-0500 Body temperature 97.4 [degF] [employer]C Kya Ciesa [employer] CLE[employer] Work Phone: [facility] 10-10-2022 08:29-0500 Diastolic blood pressure 59 mm[Hg] [employer] CLE[employer]C Kya Ciesa [employer] CLE[employer]ER Work Phone: [facility] 10-10-2022 08:29-0500 Heart rate 69 /min [employer]C Kya Ciesa [employer] CLE[employer] Work Phone: [facility] 10-10-2022 08:29-0500 Respiratory rate 16 /min [employer]C Kya Riveroesa [employer] CLE[employer]ER Work Phone: [facility] 10-10-2022 08:29-0500 Systolic blood pressure 121 mm[Hg] [employer] CLE[employer]ER[employer]C Kya Posadasa [employer] CLE[employer]ER Work Phone: [facility] 09-23-2022 00:13-0500 Body weight 58.96 kg [employer] CLE[employer]C Kya Riveroesa [employer] CLE[employer]ER Work Phone: [facility] 09-19-2022 08:29-0500 Body mass index (BMI) [Ratio] 22.3 kg/m2 [employer]C Kya Ciesa [employer] CLE[employer] Work Phone: [facility] 09-19-2022 08:29-0500 Body temperature 97.2 [degF] [employer]C Kya Ciesa [employer] CLE[employer]ER Work Phone: [facility] 09-19-2022 08:29-0500 Diastolic blood pressure 63 mm[Hg] [employer] CLE[employer]ER[employer]C Kya Ciesa [employer] CLE[employer]ER Work Phone: [facility] 09-19-2022 08:29-0500 Heart rate 69 /min [employer]C Kya Ciesa [employer] CLE[employer] Work Phone: [facility] 09-19-2022 08:29-0500 Systolic blood pressure 116 mm[Hg] [employer] CLE[employer]ER[employer]C Kya Ciesa [employer] CLE[employer]ER Work Phone: [facility] 09-12-2022 08:25-0500 Respiratory rate 16 /min [employer]C Kya Ciesa [employer] CLE[employer]ER Work Phone: [facility] 08-23-2022 00:14-0500 Body weight 58.96 kg [employer]C Kya Ciesa [employer] CLE[employer] Work Phone: [facility] 08-22-2022 08:29-0500 Body mass index (BMI) [Ratio] 22.3 kg/m2 [employer]C Kya Ciesa [employer] CLE[employer] Work Phone: [facility] 08-22-2022 08:29-0500 Body temperature 98.2 [degF] [employer] CLE[employer]C Kya Ciesa [employer] CLE[employer]ER Work Phone: [facility] 08-22-2022 08:29-0500 Diastolic blood pressure 58 mm[Hg] [employer] CLE[employer]ER-C Kya Ciesa [employer] CLE[employer]ER Work Phone: [facility] 08-22-2022 08:29-0500 Heart rate 75 /min [employer]C Kya Ciesa [employer] CLE[employer] Work Phone: [facility] 08-22-2022 08:29-0500 Respiratory rate 16 /min [employer]C Kya Ciesa [employer] CLE[employer] Work Phone: [facility] 08-22-2022 08:29-0500 Systolic blood pressure 117 mm[Hg] [employer] CLE[employer]ER-C Kya Ciesa [employer] CLE[employer]ER Work Phone: [facility] 07-31-2022 09:11-0500 Body height 162.56 cm [employer]C Kya Ciesa [employer] CLE[employer]ER Work Phone: [facility] 07-31-2022 09:10-0500 Body mass index (BMI) [Ratio] 22.1 kg/m2 [employer]C Kya Ciesa [employer] CLE[employer] Work Phone: [facility] 07-31-2022 09:10-0500 Body temperature 97.9 [degF] [employer] CLE[employer]ER-C Kya Posadasa [employer] CLE[employer]ER Work Phone: [facility] 07-31-2022 09:10-0500 Body weight 58.62 kg [employer]C Kya Posadasa [employer] CLE[employer]ER Work Phone: [facility] 07-31-2022 09:10-0500 Diastolic blood pressure 65 mm[Hg] [employer] CLE[employer]ER-C Kya Riveroesa [employer]OTH CLEANER Work Phone: [facility] 07-31-2022 09:10-0500 Heart rate 88 /min [employer]C Kya Riveroesa [employer] CLE[employer]ER Work Phone: [facility] 07-31-2022 09:10-0500 Respiratory rate 16 /min [employer]C Kya Riveroesa [employer] CLE[employer]ER Work Phone: [facility] 07-31-2022 09:10-0500 SaO2% (BldA) [Mass fraction] 98 % [employer]C Kya Posadasa [employer] CLEANER Work Phone: [facility] 07-31-2022 09:10-0500 Systolic blood pressure 113 mm[Hg] [employer] CLE[employer]ER-C Kya Posadasa [employer] CLE[employer]ER Work Phone: [facility] 07-24-2022 00:14-0400 Body weight 58.96 kg [employer]C Kya Posadasa [employer] CLE[employer]ER Work Phone: [facility] 07-18-2022 08:31-0400 Body mass index (BMI) [Ratio] 22.3 kg/m2 [employer]C Kya Riveroesa [employer] CLE[employer]ER Work Phone: [facility] 07-18-2022 08:31-0400 Body temperature 96.9 [degF] [employer]C Kya Riveroesa [employer] CLE[employer]ER Work Phone: [facility] 07-18-2022 08:31-0400 Diastolic blood pressure 57 mm[Hg] [employer] CLE[employer]ER-C Kya Riveroesa [employer] CLE[employer]ER Work Phone: [facility] 07-18-2022 08:31-0400 Heart rate 81 /min [employer]C Kya Gonzalez [employer] CLE[employer]ER Work Phone: [facility] 07-18-2022 08:31-0400 Systolic blood pressure 133 mm[Hg] [employer] CLE[employer]ER-C Kya Gonzalez [employer] CLE[employer]ER Work Phone: [facility] 07-04-2022 08:19-0400 Respiratory rate 18 /min [employer]C Kya Gonzalez [employer] CLE[employer]ER Work Phone: [facility] 06-23-2022 00:29-0400 Body weight 58.96 kg [employer]C Kya Gonzalez [employer] CLE[employer]ER Work Phone: [facility] 06-20-2022 08:43-0400 Body mass index (BMI) [Ratio] 22.3 kg/m2 [employer]C Kya Gonzalez [employer] CLE[employer]ER Work Phone: [facility] Work Phone: 06-20-2022 08:43-0400 Body temperature 97.2 [degF] [employer]C Kya Gonzalez BO[employer] CLEANER Work Phone: [facility] Work Phone: 06-20-2022 08:43-0400 Diastolic blood pressure 63 mm[Hg] [employer] CLE[employer]ER-C Kya Gonzalez [employer] CLE[employer]ER Work Phone: [facility] Work Phone: 06-20-2022 08:43-0400 Heart rate 63 /min [employer]C Kya Gonzalez [employer] CLE[employer]ER Work Phone: [facility] Work Phone: 06-20-2022 08:43-0400 Systolic blood pressure 124 mm[Hg] [employer] CLE[employer]ER-C Kya Gonzalez BOOTH CLEANER Work Phone: [facility] Work Phone: 06-18-2022 08:48-0400 Body mass index (BMI) [Ratio] 21.39 kg/m2 Kya Gonzalez Work Phone: CQ-Pwpjnxgvhaiynf-Eo mike Work Phone: 06-18-2022 08:48-0400 Body surface area Derived from formula 1.66 m2 Kya Gonzalez Work Phone: [facility] mike Work Phone: 06-18-2022 08:48-0400 Body weight 59.19 kg Kya Gonzalez Work Phone: SM-Sffslxtllnsmet-Hb mike Work Phone: 06-13-2022 08:22-0400 Respiratory rate 16 /min [employer]C Kya Gonzalez BOOTH CLEANER Work Phone: [facility] Work Phone: 05-24-2022 00:05-0400 Body weight 58.96 kg [employer] CLE[employer]-C Kya Gonzalez [employer] CLE[employer]ER Work Phone: [facility] Work Phone: 05-23-2022 11:35-0400 Body height 162.56 cm [employer] CLE[employer]-C Kya Gonzalez [employer] CLEANER Work Phone: [facility] Work Phone: 05-23-2022 11:35-0400 Body mass index (BMI) [Ratio] 21.9 kg/m2 [employer]C Kya Gonzalez [employer] CLEANER Work Phone: [facility] Work Phone: 05-23-2022 11:35-0400 Body temperature 98.4 [degF] [employer] CLE[employer]ER-C Kya Gonzalez BOOTH CLEANER Work Phone: [facility] Work Phone: 05-23-2022 11:35-0400 Body weight 58.11 kg [employer] CLE[employer]-C Kya Gonzalez [employer] CLE[employer]ER Work Phone: [facility] Work Phone: 05-23-2022 11:35-0400 Diastolic blood pressure 75 mm[Hg] BO[employer] CLE[employer]ER-C Kya Posadasa [employer] CLE[employer]ER Work Phone: [facility] Work Phone: 08-31-2022 11:35-0400 Heart rate 69 /min [employer]C Kya Gonzalez [employer] CLE[employer]ER Work Phone: [facility] Work Phone: 05-23-2022 11:35-0400 Respiratory rate 16 /min [employer] CLE[employer]C Kya Gonzalez [employer] CLEANER Work Phone: [facility] Work Phone: 05-23-2022 11:35-0400 SaO2% (BldA) [Mass fraction] 99 % [employer]C Kya Gonzalez [employer]OTH CLEANER Work Phone: [facility] Work Phone: 05-23-2022 11:35-0400 Systolic blood pressure 152 mm[Hg] [employer] CLE[employer]ER-C Kya Gonzalez [employer]OTH CLEANER Work Phone: [facility] Work Phone: 05-23-2022 09:23-0400 Body mass index (BMI) [Ratio] 22.3 kg/m2 [employer]C Kya Gonzalez [employer] CLEANER Work Phone: [facility] Work Phone: 05-23-2022 09:23-0400 Body temperature 97.3 [degF] [employer]C Kya Gonzalez [employer] CLE[employer]ER Work Phone: [facility] Work Phone: 05-23-2022 09:23-0400 Diastolic blood pressure 61 mm[Hg] [employer] CLE[employer]ER-C Kya Gonzalez [employer] CLEANER Work Phone: [facility] Work Phone: 05-23-2022 09:23-0400 Heart rate 67 /min [employer]C Kya Gonzalez [employer] CLE[employer]ER Work Phone: [facility] Work Phone: 05-23-2022 09:23-0400 Systolic blood pressure 125 mm[Hg] [employer] CLE[employer]ER-C Kya Posadasa [employer] CLEANER Work Phone: [facility] Work Phone: 05-14-2022 08:51-0400 Body height 166.37 cm Kya Gonzalez Work Phone: RO-Zpibmvgkwqbysz-Bu mike Work Phone: 05-14-2022 08:51-0400 Body mass index (BMI) [Ratio] 21.55 kg/m2 Kya Gonzalez Work Phone: NP-Evwcdaqcnceonb-Nh mike Work Phone: 05-14-2022 08:51-0400 Body surface area Derived from formula 1.66 m2 Kya Gonzalez Work Phone: UN-Punznklstkenyj-Ti mike Work Phone: 05-14-2022 08:51-0400 Body weight 59.65 kg Kya Gonzalez Work Phone: KJ-Lylapcnwzqxjwn-Pp mike Work Phone: 05-02-2022 09:34-0400 Respiratory rate 18 /min [employer]C Kya Gonzalez BOOTH CLEANER Work Phone: [facility] Work Phone: 04-30-2022 09:01-0400 Body mass index (BMI) [Ratio] 21.7 kg/m2 [employer]C Kya Gonzalez [employer] CLEANER Work Phone: [facility] Work Phone: 04-30-2022 09:01-0400 Body temperature 98 [degF] [employer] CLE[employer]ER-C Kya Gonzalez BOOTH CLEANER Work Phone: [facility] Work Phone: 04-30-2022 09:01-0400 Body weight 57.32 kg [employer] CLE[employer]ER-C Kya Gonzalez BO[employer] CLEANER Work Phone: [facility] Work Phone: 04-30-2022 09:01-0400 Diastolic blood pressure 69 mm[Hg] [employer] CLE[employer]ER-C Kya Gonzalez [employer] CLEANER Work Phone: [facility] Work Phone: 04-30-2022 09:01-0400 Heart rate 74 /min [employer]C Kya Gonzalez [employer] CLE[employer]ER Work Phone: [facility] Work Phone: 04-30-2022 09:01-0400 Respiratory rate 18 /min [employer]C Kya Gonzalez [employer] CLE[employer]ER Work Phone: [facility] Work Phone: 04-30-2022 09:01-0400 SaO2% (BldA) [Mass fraction] 100 % [employer]C Kya Gonzalez [employer] CLE[employer]ER Work Phone: [facility] Work Phone: 04-30-2022 09:01-0400 Systolic blood pressure 126 mm[Hg] [employer] CLE[employer]ER-C Kya Gonzalez [employer]OTH CLEANER Work Phone: [facility] Work Phone: 04-16-2022 10:45-0400 Body height 167.64 cm Kya Gonzalez Work Phone: FH-Esivcglkmgzdwr-Wb mike Work Phone: 04-16-2022 10:45-0400 Body mass index (BMI) [Ratio] 20.66 kg/m2 Kya Gonzalez Work Phone: XP-Blyqxwyqmcuxyw-Ex mike Work Phone: 04-16-2022 10:45-0400 Body surface area Derived from formula 1.65 m2 Kya Gonzalez Work Phone: KB-Noekwewlxtateo-Li mike Work Phone: 04-16-2022 10:45-0400 Body weight 58.06 kg Kya Gonzalez Work Phone: CM-Wbbpqatvyftkvr-Vz mike Work Phone: 04-02-2022 09:01-0400 Body height 167.64 cm Kya Gonzalez Work Phone: SI-Fvolxnsbfupzoo-Xc yoly Work Phone: 04-02-2022 09:01-0400 Body mass index (BMI) [Ratio] 20.4 kg/m2 Kya Gonzalez Work Phone: BI-Xevpzzyfnsibdp-Oc yoly Work Phone: 04-02-2022 09:01-0400 Body surface area Derived from formula 1.65 m2 Kya Gonzalez Work Phone: UO-Kminsxykdnqogv-Ci yoly Work Phone: 04-02-2022 09:01-0400 Body weight 57.33 kg Kya Gonzalez Work Phone: BU-Yzzftryabfxiym-Sp yoly Work Phone: 03-28-2022 11:02-0400 Body height 162.56 cm [employer]C Kya Gonzalez [employer] CLE[employer]ER Work Phone: [facility] Work Phone: 03-28-2022 11:02-0400 Body weight 57.74 kg [employer] CLE[employer]C Kya Posadasa [employer] CLE[employer]ER Work Phone: [facility] Work Phone: 03-27-2022 09:25-0400 Body mass index (BMI) [Ratio] 21.8 kg/m2 [employer]C Kya Posadasa [employer] CLE[employer]ER Work Phone: [facility] Work Phone: 03-27-2022 09:25-0400 Body temperature 97.9 [degF] [employer]C Kya Posadasa [employer] CLE[employer]ER Work Phone: [facility] Work Phone: 03-27-2022 09:25-0400 Body weight 57.74 kg [employer]-C Kya Posadasa [employer] CLE[employer]ER Work Phone: [facility] Work Phone: 03-27-2022 09:25-0400 Diastolic blood pressure 69 mm[Hg] [employer] CLE[employer]ER-C Kya Posadasa [employer] CLE[employer]ER Work Phone: [facility] Work Phone: 03-27-2022 09:25-0400 Heart rate 78 /min [employer]C Kya Posadasa [employer] CLE[employer] Work Phone: [facility] Work Phone: 03-27-2022 09:25-0400 Respiratory rate 20 /min [employer]C Kya Posadasa [employer] CLE[employer]ER Work Phone: [facility] Work Phone: 03-27-2022 09:25-0400 SaO2% (BldA) [Mass fraction] 100 % [employer]C Kya Posadasa [employer] CLE[employer]ER Work Phone: [facility] Work Phone: 03-27-2022 09:25-0400 Systolic blood pressure 116 mm[Hg] [employer] CLE[employer]ER-C Kya Posadasa [employer] CLE[employer]ER Work Phone: [facility] Work Phone: 02-27-2022 10:05-0400 Body temperature 97 [degF] [employer] CLE[employer]ER[employer]C Kya Posadasa [employer] CLE[employer]ER Work Phone: [facility] Work Phone: 02-27-2022 10:05-0400 Body weight 57.6 kg [employer]C Kya Posadasa [employer] Work Phone: [facility] Work Phone: 02-27-2022 10:05-0400 Heart rate 71 /min [employer]C Kya Posadasa [employer] Work Phone: [facility] Work Phone: 02-27-2022 10:05-0400 Respiratory rate 18 /min [employer]C Kya Posadasa [employer] Work Phone: [facility] Work Phone: 02-27-2022 10:05-0400 SaO2% (BldA) [Mass fraction] 100 % [employer] CLE[employer]C Kya Posadasa [employer] CLE[employer]ER Work Phone: [facility] Work Phone: 02-15-2022 12:03-0400 Body height 170.18 cm Caridad Gomez LPN [facility] Work Phone: 02-15-2022 12:03-0400 Body mass index (BMI) [Ratio] 19.48 kg/m2 Caridad Gomez LPN [facility] Work Phone: 02-15-2022 12:03-0400 Body surface area Derived from formula 1.65 m2 Caridad Gomez LPN [facility] Work Phone: 02-15-2022 12:03-0400 Body temperature 97.3 [degF] Caridad Gomez LPN [facility] Work Phone: 02-15-2022 12:03-0400 Body weight 56.43 kg Caridad Gomez LPN [facility]; [facility] Work Phone: 02-15-2022 12:03-0400 Diastolic blood pressure 64 mm[Hg] Caridad Gomez LPN [facility] Work Phone: Comment on above: Patient Position: Sitting; Cuff Location : Left Arm; Cuff Size: Standard 02-15-2022 12:03-0400 Heart rate 77 /min Caridad Gomez LPN [facility] Work Phone: Comment on above: Pattern: Regular 02-15-2022 12:03-0400 Respiratory rate 16 /min Caridad Gomez LPN [facility] Work Phone: Comment on above: Pattern: Unlabored 02-15-2022 12:03-0400 SaO2% (BldA) [Mass fraction] 98 % Caridad Gomez LPN [facility]; [facility] Work Phone: Comment on above: Room air 02-15-2022 12:03-0400 Systolic blood pressure 104 mm[Hg] Caridad Gomez LPN [facility]; [facility] Work Phone: Comment on above: Patient Position: Sitting; Cuff Location : Left Arm; Cuff Size: Standard 02-14-2022 10:44-0400 Body height 162.56 cm [employer]C Kya Posadasa [employer] CLE[employer] Work Phone: [facility] Work Phone: 02-14-2022 10:44-0400 Body mass index (BMI) [Ratio] 21.8 kg/m2 [employer] Kya Posadasa [employer] CLE[employer]ER Work Phone: [facility] Work Phone: 02-14-2022 10:38-0400 Body temperature 98.2 [degF] [employer]C Kya Posadasa [employer] CLE[employer]ER Work Phone: [facility] Work Phone: 02-14-2022 10:38-0400 Body weight 57.71 kg [employer] CLE[employer]-C Kya Posadasa [employer] CLE[employer] Work Phone: [facility] Work Phone: 02-14-2022 10:38-0400 Diastolic blood pressure 61 mm[Hg] [employer] CLE[employer]ER-C Kya Posadasa [employer] CLE[employer]ER Work Phone: [facility] Work Phone: 02-14-2022 10:38-0400 Heart rate 77 /min [employer] Kya Posadasa [employer] Work Phone: [facility] Work Phone: 02-14-2022 10:38-0400 Respiratory rate 17 /min [employer]C Kya Posadasa [employer] CLE[employer]ER Work Phone: [facility] Work Phone: 02-14-2022 10:38-0400 SaO2% (BldA) [Mass fraction] 100 % [employer]C Kya Posadasa [employer] CLEANER Work Phone: [facility] Work Phone: 02-14-2022 10:38-0400 Systolic blood pressure 107 mm[Hg] [employer] CLE[employer]ER[employer]C Kya Posadasa [employer] CLE[employer]ER Work Phone: [facility] Work Phone: 02-12-2022 11:25-0400 Body height 167.64 cm Kya Gonzalez Work Phone: YD-Dxjessrvazajem-Bw mike Work Phone: 02-12-2022 11:25-0400 Body mass index (BMI) [Ratio] 20.4 kg/m2 Kya Gonzalez Work Phone: IC-Vkjkowxavvaaml-Vy mike Work Phone: 02-12-2022 11:25-0400 Body surface area Derived from formula 1.65 m2 Kya Gonzalez Work Phone: JL-Mwrkxoxwmomazq-Gq mike Work Phone: 02-12-2022 11:25-0400 Body weight 57.33 kg Kya Gonzalez Work Phone: OV-Kcqvojtshbyorg-Za mike Work Phone: 02-06-2022 08:50-0400 Body mass index (BMI) [Ratio] 20.4 kg/m2 [employer] Kya Gonzalez [employer] CLEANER Work Phone: [facility] Work Phone: 02-06-2022 08:50-0400 Body temperature 97.8 [degF] [employer]C Kya Gonzalez [employer] CLE[employer]ER Work Phone: [facility] Work Phone: 02-06-2022 08:50-0400 Body weight 57.4 kg [employer]C Kya Gonzalez [employer] Work Phone: [facility] Work Phone: 02-06-2022 08:50-0400 Diastolic blood pressure 69 mm[Hg] [employer] CLE[employer]C Kya Posadasa [employer]ER Work Phone: [facility] Work Phone: 02-06-2022 08:50-0400 Heart rate 69 /min [employer] Kya Posadasa [employer] Work Phone: [facility] Work Phone: 02-06-2022 08:50-0400 Respiratory rate 17 /min [employer] Kya Posadasa [employer] Work Phone: [facility] Work Phone: 02-06-2022 08:50-0400 SaO2% (BldA) [Mass fraction] 700 % [employer] Kya Riveroesa [employer] CLE[employer] Work Phone: [facility] Work Phone: 02-06-2022 08:50-0400 Systolic blood pressure 127 mm[Hg] [employer] Kya Posadasa [employer] Work Phone: [facility] Work Phone: 02-05-2022 09:38-0400 Body weight 57.6 kg [employer] Kya Riveroesa [employer] Work Phone: [facility] 01-31-2022 08:40-0400 Body mass index (BMI) [Ratio] 20.2 kg/m2 [employer] Kya Riveroesa [employer] Work Phone: [facility] Work Phone: 01-31-2022 08:40-0400 Body temperature 97.7 [degF] [employer] Kya Posadasa [employer] Work Phone: [facility] Work Phone: 01-31-2022 08:40-0400 Body weight 56.75 kg [employer] Kya Riveroesa [employer] Work Phone: [facility] Work Phone: 01-31-2022 08:40-0400 Diastolic blood pressure 69 mm[Hg] [employer]C Kya Ciesa [employer] Work Phone: [facility] Work Phone: 01-31-2022 08:40-0400 Heart rate 66 /min [employer] Kya Ciesa [employer] Work Phone: [facility] Work Phone: 01-31-2022 08:40-0400 Respiratory rate 18 /min [employer] Kya Ciesa [employer] Work Phone: [facility] Work Phone: 01-31-2022 08:40-0400 SaO2% (BldA) [Mass fraction] 99 % [employer] Kya Posadasa [employer] Work Phone: [facility] Work Phone: 01-31-2022 08:40-0400 Systolic blood pressure 119 mm[Hg] [employer]C Kya Posadasa [employer] Work Phone: [facility] Work Phone: 01-25-2022 10:29-0400 Body temperature 98.2 [degF] [employer]C Kya Posadasa [employer] Work Phone: [facility] Work Phone: 01-25-2022 10:29-0400 Diastolic blood pressure 74 mm[Hg] [employer]C Kya Posadasa [employer] Work Phone: [facility] Work Phone: 01-25-2022 10:29-0400 Heart rate 69 /min [employer] Kya Posadasa [employer] Work Phone: [facility] Work Phone: 01-25-2022 10:29-0400 Respiratory rate 18 /min [employer] Kya Posadasa [employer] Work Phone: [facility] Work Phone: 01-25-2022 10:29-0400 SaO2% (BldA) [Mass fraction] 100 % [employer] Kya Posadasa [employer] Work Phone: [facility] Work Phone: 01-25-2022 10:29-0400 Systolic blood pressure 126 mm[Hg] [employer]C Kya Posadasa [employer] Work Phone: [facility] Work Phone: 01-25-2022 05:43-0400 Body weight 56.6 kg [employer] Kya Posadasa [employer] Work Phone: [facility] Work Phone: 01-24-2022 10:30-0400 Body mass index (BMI) [Ratio] 19.7 kg/m2 [employer] Kya Posadasa [employer] Work Phone: [facility] Work Phone: 01-24-2022 10:30-0400 Body temperature 98.1 [degF] [employer]C Kya Posadasa [employer] Work Phone: [facility] Work Phone: 01-24-2022 10:30-0400 Body weight 55.42 kg [employer]C Kya Posadasa [employer] Work Phone: [facility] Work Phone: 01-24-2022 10:30-0400 Diastolic blood pressure 61 mm[Hg] [employer]C Kya Posadasa [employer] Work Phone: [facility] Work Phone: 01-24-2022 10:30-0400 Heart rate 73 /min [employer] Kya Posadasa [employer] Work Phone: [facility] Work Phone: 01-24-2022 10:30-0400 Respiratory rate 16 /min [employer] Kya Posadasa [employer] Work Phone: [facility] Work Phone: 01-24-2022 10:30-0400 SaO2% (BldA) [Mass fraction] 95 % [employer] Kya Posadasa [employer] Work Phone: [facility] Work Phone: 01-24-2022 10:30-0400 Systolic blood pressure 101 mm[Hg] [employer]C Kya Posadasa [employer] Work Phone: [facility] Work Phone: 01-24-2022 10:30-0400 Body height 167.64 cm [employer]C Kya Posadasa [employer] Work Phone: [facility] Work Phone: 01-24-2022 10:30-0400 Body mass index (BMI) [Ratio] 19.7 kg/m2 [employer] Kya Posadasa [employer] Work Phone: [facility] Work Phone: 01-24-2022 10:30-0400 Body temperature 98.1 [degF] [employer]C Kya Posadasa [employer] Work Phone: [facility] Work Phone: 01-24-2022 10:30-0400 Body weight 55.42 kg [employer]C Kya Posadasa [employer] Work Phone: [facility] Work Phone: 01-24-2022 10:30-0400 Diastolic blood pressure 61 mm[Hg] [employer]C Kya Posadasa [employer]ER Work Phone: [facility] Work Phone: 01-24-2022 10:30-0400 Heart rate 73 /min [employer] Kya Posadasa [employer] Work Phone: [facility] Work Phone: 01-24-2022 10:30-0400 Respiratory rate 16 /min [employer] Kya Posadasa [employer] Work Phone: [facility] Work Phone: 01-24-2022 10:30-0400 SaO2% (BldA) [Mass fraction] 95 % [employer]C Kya Posadasa [employer] Work Phone: [facility] Work Phone: 01-24-2022 10:30-0400 Systolic blood pressure 101 mm[Hg] [employer]C Kya Posadasa [employer] Work Phone: [facility] Work Phone: 01-23-2022 21:34-0400 Body temperature 98 [degF] [employer]C Kya Posadasa [employer] Work Phone: [facility] Work Phone: 01-23-2022 21:34-0400 Diastolic blood pressure 66 mm[Hg] [employer] CLE[employer]C Kya Gonzalez [employer] Work Phone: [facility] Work Phone: 01-23-2022 21:34-0400 Heart rate 72 /min [employer] Kya Gonzalez [employer] Work Phone: [facility] Work Phone: 01-23-2022 21:34-0400 Respiratory rate 18 /min [employer] Kya Gonzalez [employer] Work Phone: [facility] Work Phone: 01-23-2022 21:34-0400 SaO2% (BldA) [Mass fraction] 100 % [employer]C Kya Gonzalez [employer] Work Phone: [facility] Work Phone: 01-23-2022 21:34-0400 Systolic blood pressure 115 mm[Hg] [employer]C Kya Gonzalez [employer] Work Phone: [facility] Work Phone: 01-23-2022 11:23-0400 Body height 167.64 cm [employer]C Kya Gonzalez [employer] Work Phone: [facility] Work Phone: 01-23-2022 11:23-0400 Body weight 56.7 kg [employer] CLE[employer]C Kya Goznalez [employer] CLE[employer]ER Work Phone: [facility] Work Phone: 01-22-2022 22:45-0400 Body mass index (BMI) [Ratio] 20.1 kg/m2 [employer] Kya Posadasa [employer] CLE[employer]ER Work Phone: [facility] Work Phone: 01-17-2022 11:57-0400 Body temperature 98 [degF] [employer]C Kya Posadasa [employer] CLE[employer] Work Phone: [facility] Work Phone: 01-17-2022 11:57-0400 Diastolic blood pressure 70 mm[Hg] [employer] CLE[employer]ER[employer]C Kya Posadasa [employer] Work Phone: [facility] Work Phone: 01-17-2022 11:57-0400 Heart rate 66 /min [employer] Kya Posadasa [employer] Work Phone: [facility] Work Phone: 01-17-2022 11:57-0400 Respiratory rate 16 /min [employer] Kya Posadasa [employer] CLE[employer]ER Work Phone: [facility] Work Phone: 01-17-2022 11:57-0400 SaO2% (BldA) [Mass fraction] 100 % [employer]C Kya Posadasa [employer] Work Phone: [facility] Work Phone: 01-17-2022 11:57-0400 Systolic blood pressure 127 mm[Hg] [employer] CLE[employer]ER[employer]C Kya Posadasa [employer] CLE[employer] Work Phone: [facility] Work Phone: 01-17-2022 11:57-0400 Body temperature 98 [degF] [employer] CLE[employer]ER[employer]C Kya Posadasa [employer] CLE[employer] Work Phone: [facility] Work Phone: 01-17-2022 11:57-0400 Diastolic blood pressure 70 mm[Hg] [employer] CLE[employer]ER[employer]C Kya Posadasa [employer] Work Phone: [facility] Work Phone: 01-17-2022 11:57-0400 Heart rate 66 /min [employer]C Kya Posadasa [employer] Work Phone: [facility] Work Phone: 01-17-2022 11:57-0400 Respiratory rate 16 /min [employer]C Kya Posadasa [employer] Work Phone: [facility] Work Phone: 01-17-2022 11:57-0400 SaO2% (BldA) [Mass fraction] 100 % [employer] CLE[employer]C Kya Posadasa [employer] Work Phone: [facility] Work Phone: 01-17-2022 11:57-0400 Systolic blood pressure 127 mm[Hg] [employer] CLE[employer]ER[employer]C Kya Posadasa [employer] CLE[employer]ER Work Phone: [facility] Work Phone: 01-17-2022 09:41-0400 Body mass index (BMI) [Ratio] 20.2 kg/m2 [employer] Kya Posadasa [employer] CLE[employer] Work Phone: [facility] 01-17-2022 09:41-0400 Body weight 55.33 kg [employer]C Kya Posadasa [employer] Work Phone: [facility] Work Phone: 01-17-2022 09:26-0400 Body mass index (BMI) [Ratio] 20.2 kg/m2 [employer] Kya Posadasa [employer] Work Phone: [facility] Work Phone: 01-17-2022 09:26-0400 Body temperature 98.5 [degF] [employer] CLE[employer]C Kya Posadasa [employer] CLE[employer]ER Work Phone: [facility] Work Phone: 01-17-2022 09:26-0400 Body weight 55.33 kg [employer] CLE[employer]C Kya Posadasa [employer] Work Phone: [facility] Work Phone: 01-17-2022 09:26-0400 Diastolic blood pressure 76 mm[Hg] [employer] CLE[employer]ER[employer]C Kya Posadasa [employer] CLE[employer] Work Phone: [facility] Work Phone: 01-17-2022 09:26-0400 Heart rate 69 /min [employer]C Kya Posadasa [employer] Work Phone: [facility] Work Phone: 01-17-2022 09:26-0400 Respiratory rate 18 /min [employer]C Kya Posadasa [employer] CLE[employer] Work Phone: [facility] Work Phone: 01-17-2022 09:26-0400 SaO2% (BldA) [Mass fraction] 100 % [employer] CLE[employer]C Kya Gonzalez [employer] CLE[employer]ER Work Phone: [facility] Work Phone: 01-17-2022 09:26-0400 Systolic blood pressure 123 mm[Hg] [employer] CLE[employer]ER-C Kya Posadasa [employer] CLE[employer]ER Work Phone: [facility] Work Phone: 01-17-2022 09:26-0400 Body mass index (BMI) [Ratio] 20.2 kg/m2 [employer]C Kya Posadasa [employer] CLE[employer] Work Phone: [facility] Work Phone: 01-17-2022 09:26-0400 Body temperature 98.5 [degF] [employer]C Kya Posadasa [employer] CLE[employer]ER Work Phone: [facility] Work Phone: 01-17-2022 09:26-0400 Body weight 55.33 kg [employer] CLE[employer]C Kya Posadasa [employer] Work Phone: [facility] Work Phone: 01-17-2022 09:26-0400 Diastolic blood pressure 76 mm[Hg] [employer] CLE[employer]ER[employer]C Kya Posadasa [employer] CLE[employer]ER Work Phone: [facility] Work Phone: 01-17-2022 09:26-0400 Heart rate 69 /min [employer] Kya Posadasa [employer] Work Phone: [facility] Work Phone: 01-17-2022 09:26-0400 Respiratory rate 18 /min [employer]C Kya Posadasa [employer] CLE[employer] Work Phone: [facility] Work Phone: 01-17-2022 09:26-0400 SaO2% (BldA) [Mass fraction] 100 % [employer]C Kya Posadasa [employer] CLE[employer]ER Work Phone: [facility] Work Phone: 01-17-2022 09:26-0400 Systolic blood pressure 123 mm[Hg] [employer] CLE[employer]ER[employer]C Kya Posadasa [employer] CLE[employer]ER Work Phone: [facility] Work Phone: 01-15-2022 10:00-0400 Body height 167.64 cm Kya Gonzalez Work Phone: AI[facility]Rahieonoppylyg[facility]Wi [facility] Work Phone: 01-15-2022 10:00-0400 Body mass index (BMI) [Ratio] 19.85 kg/m2 Kya Gonzalez Work Phone: RU-Gitqgbdfegxbup-Mc [facility] Work Phone: 01-15-2022 10:00-0400 Body surface area Derived from formula 1.63 m2 Kya Gonzalez Work Phone: HG-Xlcufvtcdqdepd-Ez [facility] Work Phone: 01-15-2022 10:00-0400 Body temperature 97.5 [degF] Kya Gonzalez Work Phone: CK-Ixdtnjadtmryst-Uz [facility] Work Phone: 01-15-2022 10:00-0400 Body weight 55.79 kg Kya Gonzalez Work Phone: OQ-Jcpkvtpqietbrw-Wz [facility] Work Phone: 01-10-2022 12:27-0400 Body temperature 97.4 [degF] [employer]C Kya Posadasa [employer] CLE[employer]ER Work Phone: [facility] 01-10-2022 12:27-0400 Diastolic blood pressure 61 mm[Hg] [employer] CLE[employer]ER[employer]C Kya Posadasa [employer] CLE[employer]ER Work Phone: [facility] 01-10-2022 12:27-0400 Heart rate 64 /min [employer]C Kya Posadasa [employer] Work Phone: [facility] 01-10-2022 12:27-0400 Respiratory rate 18 /min [employer]C Kya Gonzalez [employer] CLE[employer]ER Work Phone: [facility] 01-10-2022 12:27-0400 SaO2% (BldA) [Mass fraction] 98 % [employer]C Kya Gonzalez [employer] CLE[employer]ER Work Phone: [facility] 01-10-2022 12:27-0400 Systolic blood pressure 118 mm[Hg] [employer] CLE[employer]ER[employer]C Kya Gonzalez [employer] CLE[employer]ER Work Phone: [facility] 01-10-2022 10:32-0400 Body height 165.1 cm [employer]C Kya Gonzalez [employer] CLE[employer]ER Work Phone: [facility] Work Phone: 01-10-2022 10:32-0400 Body mass index (BMI) [Ratio] 20.8 kg/m2 [employer]C Kya Gonzalez [employer] CLE[employer]ER Work Phone: [facility] Work Phone: 01-10-2022 10:32-0400 Body weight 56.78 kg [employer]C Kya Gonzalez [employer] CLE[employer]ER Work Phone: [facility] Work Phone: 01-10-2022 09:15-0400 Body mass index (BMI) [Ratio] 20.8 kg/m2 [employer]C Kya Gonzalez [employer] CLE[employer] Work Phone: [facility] Work Phone: 01-10-2022 09:15-0400 Body temperature 98.1 [degF] [employer] CLE[employer]C Kya Gonzalez [employer] CLE[employer]ER Work Phone: [facility] Work Phone: 01-10-2022 09:15-0400 Body weight 56.78 kg [employer]C Kya Gonzalez [employer] CLE[employer]ER Work Phone: [facility] Work Phone: 01-10-2022 09:15-0400 Diastolic blood pressure 67 mm[Hg] [employer] CLE[employer]ER[employer]C Kya Gonzalez [employer] CLE[employer]ER Work Phone: [facility] Work Phone: 01-10-2022 09:15-0400 Heart rate 67 /min [employer]C Kya Ciesa [employer] CLE[employer]ER Work Phone: [facility] Work Phone: 01-10-2022 09:15-0400 Respiratory rate 16 /min [employer]C Kya Ciesa [employer] CLE[employer]ER Work Phone: [facility] Work Phone: 01-10-2022 09:15-0400 Systolic blood pressure 121 mm[Hg] [employer] CLE[employer]ER-C Kya Ciesa [employer] CLE[employer]ER Work Phone: [facility] Work Phone: 01-10-2022 09:15-0400 Body mass index (BMI) [Ratio] 20.8 kg/m2 [employer]C Kya Ciesa [employer] CLE[employer]ER Work Phone: [facility] Work Phone: 01-10-2022 09:15-0400 Body temperature 98.1 [degF] [employer] CLE[employer]ER-C Kya Riveroesa [employer]OTH CLEANER Work Phone: [facility] Work Phone: 01-10-2022 09:15-0400 Body weight 56.78 kg [employer] CLE[employer]C Kya Riveroesa [employer] CLE[employer]ER Work Phone: [facility] Work Phone: 01-10-2022 09:15-0400 Diastolic blood pressure 67 mm[Hg] [employer] CLE[employer]ER-C Kya Ciesa [employer] CLE[employer]ER Work Phone: [facility] Work Phone: 01-10-2022 09:15-0400 Heart rate 67 /min [employer]C Kya Ciesa [employer] CLE[employer]ER Work Phone: [facility] Work Phone: 01-10-2022 09:15-0400 Respiratory rate 16 /min [employer]C Kya Ciesa [employer] CLE[employer]ER Work Phone: [facility] Work Phone: 01-10-2022 09:15-0400 Systolic blood pressure 121 mm[Hg] [employer] CLE[employer]ER-C Kya Ciesa [employer] CLE[employer]ER Work Phone: [facility] Work Phone: 01-04-2022 08:57-0400 Body temperature 98.7 [degF] [employer] CLE[employer]C Kya Posadasa [employer] CLE[employer]ER Work Phone: [facility] Work Phone: 01-04-2022 08:57-0400 Body weight 56.44 kg [employer]C Kya Posadasa [employer] CLE[employer]ER Work Phone: [facility] Work Phone: 01-04-2022 08:57-0400 Diastolic blood pressure 64 mm[Hg] [employer] CLE[employer]ER-C Kya Posadasa [employer] CLE[employer]ER Work Phone: [facility] Work Phone: 01-04-2022 08:57-0400 Heart rate 70 /min [employer]C Kya Posadasa [employer] CLE[employer]ER Work Phone: [facility] Work Phone: 01-04-2022 08:57-0400 Respiratory rate 14 /min [employer]C Kya Posadasa [employer] CLE[employer]ER Work Phone: [facility] Work Phone: 01-04-2022 08:57-0400 SaO2% (BldA) [Mass fraction] 93 % [employer]C Kya Posadasa [employer] CLE[employer]ER Work Phone: [facility] Work Phone: 01-04-2022 08:57-0400 Systolic blood pressure 118 mm[Hg] [employer] CLE[employer]ER-C Kya Posadasa [employer] CLE[employer]ER Work Phone: [facility] Work Phone: 01-04-2022 08:57-0400 Body temperature 98.7 [degF] [employer] CLE[employer]ER[employer]C Kya Posadasa [employer] CLE[employer]ER Work Phone: [facility] Work Phone: 01-04-2022 08:57-0400 Body weight 56.44 kg [employer]C Kya Posadasa [employer] CLE[employer]ER Work Phone: [facility] Work Phone: 01-04-2022 08:57-0400 Diastolic blood pressure 64 mm[Hg] [employer] CLE[employer]ER[employer]C Kya Posadasa [employer] CLE[employer]ER Work Phone: [facility] Work Phone: 01-04-2022 08:57-0400 Heart rate 70 /min [employer]C Kya Ciesa [employer] CLE[employer]ER Work Phone: [facility] Work Phone: 01-04-2022 08:57-0400 Respiratory rate 14 /min [employer]C Kya Ciesa [employer] CLE[employer]ER Work Phone: [facility] Work Phone: 01-04-2022 08:57-0400 SaO2% (BldA) [Mass fraction] 93 % [employer]C Kya Riveroesa [employer] CLEANER Work Phone: [facility] Work Phone: 01-04-2022 08:57-0400 Systolic blood pressure 118 mm[Hg] [employer] CLE[employer]ER-C Kya Riveroesa [employer] CLE[employer]ER Work Phone: [facility] Work Phone: 01-03-2022 09:38-0400 Body mass index (BMI) [Ratio] 21.1 kg/m2 [employer]C Kya Riveroesa [employer] CLE[employer]ER Work Phone: [facility] Work Phone: 01-03-2022 09:38-0400 Body temperature 99.2 [degF] [employer] CLE[employer]ER[employer]C Kya Riveroesa [employer] CLE[employer]ER Work Phone: [facility] Work Phone: 01-03-2022 09:38-0400 Body weight 57.6 kg [employer] CLE[employer]ER[employer]C Kya Ciesa [employer] CLE[employer]ER Work Phone: [facility] Work Phone: 01-03-2022 09:38-0400 Diastolic blood pressure 64 mm[Hg] [employer] CLE[employer]ER-C Kya Ciesa [employer] CLE[employer]ER Work Phone: [facility] Work Phone: 01-03-2022 09:38-0400 Heart rate 77 /min [employer]C Kya Posadasa [employer] CLE[employer]ER Work Phone: [facility] Work Phone: 01-03-2022 09:38-0400 Respiratory rate 18 /min [employer]C Kya Posadasa [employer] CLE[employer] Work Phone: [facility] Work Phone: 01-03-2022 09:38-0400 SaO2% (BldA) [Mass fraction] 99 % [employer]C Kya Posadasa [employer] CLE[employer]ER Work Phone: [facility] Work Phone: 01-03-2022 09:38-0400 Systolic blood pressure 123 mm[Hg] [employer] CLE[employer]ER-C Kya Posadasa [employer] CLE[employer]ER Work Phone: [facility] Work Phone: 01-03-2022 09:38-0400 Body mass index (BMI) [Ratio] 21.1 kg/m2 [employer]C Kya Posadasa [employer]ER Work Phone: [facility] Work Phone: 01-03-2022 09:38-0400 Body temperature 99.2 [degF] [employer] CLE[employer]C Kya Posadasa [employer] Work Phone: [facility] Work Phone: 01-03-2022 09:38-0400 Body weight 57.6 kg [employer]C Kya Posadasa [employer] Work Phone: [facility] Work Phone: 01-03-2022 09:38-0400 Diastolic blood pressure 64 mm[Hg] [employer] CLE[employer]ER[employer]C Kya Posadasa [employer] CLE[employer]ER Work Phone: [facility] Work Phone: 01-03-2022 09:38-0400 Heart rate 77 /min [employer]C Kya Riveroesa [employer] CLE[employer]ER Work Phone: [facility] Work Phone: 01-03-2022 09:38-0400 Respiratory rate 18 /min [employer]C Kya Gonzalez [employer] Work Phone: [facility] Work Phone: 01-03-2022 09:38-0400 SaO2% (BldA) [Mass fraction] 99 % [employer]C Kya Gonzalez [employer] Work Phone: [facility] Work Phone: 01-03-2022 09:38-0400 Systolic blood pressure 123 mm[Hg] [employer] CLE[employer]ER[employer]C Kya Gonzalez [employer] CLE[employer]ER Work Phone: [facility] Work Phone: 12-29-2021 15:44-0400 Body height 167.64 cm Kya Gonzalez Work Phone: TT-Hxljxsmtvexpps-Ns [facility] Work Phone: 12-29-2021 15:44-0400 Body mass index (BMI) [Ratio] 20.51 kg/m2 Kya Gonzalez Work Phone: ZD-Vizcoagowawodz[facility]Ns [facility] Work Phone: 12-29-2021 15:44-0400 Body surface area Derived from formula 1.65 m2 Kya Gonzalez Work Phone: SA-Leihduzukiirvz-Dk [facility] Work Phone: 12-29-2021 15:44-0400 Body weight 57.63 kg Kya Gonzalez Work Phone: KW-Hgmeowxjlbvrbs-Bj [facility] Work Phone: 12-27-2021 08:59-0400 Body mass index (BMI) [Ratio] 20.5 kg/m2 [employer] Kya Gonzalez [employer] Work Phone: [facility] Work Phone: 12-27-2021 08:59-0400 Body temperature 98.4 [degF] [employer]C Kya Gonzalez [employer] Work Phone: [facility] Work Phone: 12-27-2021 08:59-0400 Body weight 55.9 kg [employer]C Kya Gonzalez [employer] Work Phone: [facility] Work Phone: 12-27-2021 08:59-0400 Diastolic blood pressure 72 mm[Hg] [employer]C Kya Posadasa [employer] Work Phone: [facility] Work Phone: 12-27-2021 08:59-0400 Heart rate 70 /min [employer] Kya Posadasa [employer] Work Phone: [facility] Work Phone: 12-27-2021 08:59-0400 Respiratory rate 22 /min [employer] Kya Posadasa [employer] Work Phone: [facility] Work Phone: 12-27-2021 08:59-0400 SaO2% (BldA) [Mass fraction] 96 % [employer] Kya Gonzalez [employer] Work Phone: [facility] Work Phone: 12-27-2021 08:59-0400 Systolic blood pressure 138 mm[Hg] [employer]C Kya Posadasa [employer] Work Phone: [facility] Work Phone: 12-27-2021 08:59-0400 Body mass index (BMI) [Ratio] 20.5 kg/m2 [employer] Kya Posadasa [employer] Work Phone: [facility] Work Phone: 12-27-2021 08:59-0400 Body temperature 98.4 [degF] [employer]C Kya Posadasa [employer] Work Phone: [facility] Work Phone: 12-27-2021 08:59-0400 Body weight 55.9 kg [employer]C Kya Posadasa [employer] Work Phone: [facility] Work Phone: 12-27-2021 08:59-0400 Diastolic blood pressure 72 mm[Hg] [employer]C Kya Posadasa [employer] Work Phone: [facility] Work Phone: 12-27-2021 08:59-0400 Heart rate 70 /min [employer] Kya Riveroesa [employer] Work Phone: [facility] Work Phone: 12-27-2021 08:59-0400 Respiratory rate 22 /min [employer]C Kya Posadasa [employer] Work Phone: [facility] Work Phone: 12-27-2021 08:59-0400 SaO2% (BldA) [Mass fraction] 96 % [employer]C Kya Posadasa [employer] Work Phone: [facility] Work Phone: 12-27-2021 08:59-0400 Systolic blood pressure 138 mm[Hg] [employer]C Kya Posadasa [employer] Work Phone: [facility] Work Phone: 12-20-2021 11:13-0400 Body temperature 98.3 [degF] [employer]C Kya Posadasa [employer] Work Phone: [facility] Work Phone: 12-20-2021 11:13-0400 Heart rate 69 /min [employer] Kya Posadasa [employer] Work Phone: [facility] Work Phone: 12-20-2021 11:13-0400 Respiratory rate 18 /min [employer]C Kya Riveroesa [employer] Work Phone: [facility] Work Phone: 12-20-2021 11:13-0400 SaO2% (BldA) [Mass fraction] 98 % [employer] Kya Riveroesa [employer] Work Phone: [facility] Work Phone: 12-20-2021 11:13-0400 Body temperature 98.3 [degF] [employer]C Kya Gonzalez [employer] Work Phone: [facility] Work Phone: 12-20-2021 11:13-0400 Heart rate 69 /min [employer]C Kya Gonzalez [employer] Work Phone: [facility] Work Phone: 12-20-2021 11:13-0400 Respiratory rate 18 /min [employer]C Kya Gonzalez [employer] Work Phone: [facility] Work Phone: 12-20-2021 11:13-0400 SaO2% (BldA) [Mass fraction] 98 % [employer]C Kya Gonzalez [employer] Work Phone: [facility] Work Phone: 12-20-2021 10:44-0400 Body height 165.1 cm [employer]C Kya Gonzalez [employer] Work Phone: [facility] Work Phone: 12-20-2021 10:44-0400 Body mass index (BMI) [Ratio] 20.6 kg/m2 [employer] Kya Gonzalez [employer] Work Phone: [facility] Work Phone: 12-20-2021 10:44-0400 Body weight 56.24 kg [employer] Kya Gonzalez [employer] Work Phone: [facility] Work Phone: 12-20-2021 10:27-0400 Body temperature 98.3 [degF] [employer]C Kya Gonzalez [employer] Work Phone: [facility] Work Phone: 12-20-2021 10:27-0400 Diastolic blood pressure 68 mm[Hg] [employer]C Kya Posadasa [employer] Work Phone: [facility] Work Phone: 12-20-2021 10:27-0400 Heart rate 69 /min [employer] Kya Gonzalez [employer] Work Phone: [facility] Work Phone: 12-20-2021 10:27-0400 Respiratory rate 18 /min [employer] Kya Gonzalez [employer] Work Phone: [facility] Work Phone: 12-20-2021 10:27-0400 SaO2% (BldA) [Mass fraction] 98 % [employer] Kya Gonzalez [employer] Work Phone: [facility] Work Phone: 12-20-2021 10:27-0400 Systolic blood pressure 118 mm[Hg] [employer]C Kya Gonzalez [employer] Work Phone: [facility] Work Phone: 12-18-2021 15:55-0400 Body height 167.64 cm Kya Gonzalez Work Phone: SB-Sqgxnrxrwybxco-Ij [facility] Work Phone: 12-18-2021 15:55-0400 Body mass index (BMI) [Ratio] 19.89 kg/m2 Kya Gonzalez Work Phone: GL-Cxemnjkrmuafbg-Is [facility] Work Phone: 12-18-2021 15:55-0400 Body surface area Derived from formula 1.63 m2 Kya Gonzalez Work Phone: XM-Lpzypwydukkzqn-Vi [facility] Work Phone: 12-18-2021 15:55-0400 Body weight 55.91 kg Kya Gonzalez Work Phone: BE-Usjkuzmafkhsnt-Ox [facility] Work Phone: 12-18-2021 08:53-0400 Body mass index (BMI) [Ratio] 20.2 kg/m2 [employer] Kya Gonzalez [employer] Work Phone: [facility] Work Phone: 12-18-2021 08:53-0400 Body temperature 98.4 [degF] [employer]C Kya Gonzalez [employer] Work Phone: [facility] Work Phone: 12-18-2021 08:53-0400 Body weight 55.11 kg [employer] Kya Gonzalez [employer] Work Phone: [facility] Work Phone: 12-18-2021 08:53-0400 Diastolic blood pressure 72 mm[Hg] [employer]C Kya Gonzalez [employer] Work Phone: [facility] Work Phone: 12-18-2021 08:53-0400 Heart rate 76 /min [employer] Kya Gonzalez [employer] Work Phone: [facility] Work Phone: 12-18-2021 08:53-0400 Respiratory rate 18 /min [employer] Kya Gonzalez [employer] Work Phone: [facility] Work Phone: 12-18-2021 08:53-0400 SaO2% (BldA) [Mass fraction] 97 % [employer] Kya Gonzalez [employer] Work Phone: [facility] Work Phone: 12-18-2021 08:53-0400 Systolic blood pressure 135 mm[Hg] [employer] Kya Gonzalez [employer] Work Phone: [facility] Work Phone: 12-18-2021 08:53-0400 Body mass index (BMI) [Ratio] 20.2 kg/m2 [employer] Kya Posadasa [employer] Work Phone: [facility] Work Phone: 12-18-2021 08:53-0400 Body temperature 98.4 [degF] [employer] Kya Gonzalez [employer] Work Phone: [facility] Work Phone: 12-18-2021 08:53-0400 Body weight 55.11 kg [employer] Kya Gonzalez [employer] Work Phone: [facility] Work Phone: 12-18-2021 08:53-0400 Diastolic blood pressure 72 mm[Hg] [employer] Kya Posadasa [employer] Work Phone: [facility] Work Phone: 12-18-2021 08:53-0400 Heart rate 76 /min [employer] Kya Posadasa [employer] Work Phone: [facility] Work Phone: 12-18-2021 08:53-0400 Respiratory rate 18 /min [employer] Kya Posadasa [employer] Work Phone: [facility] Work Phone: 12-18-2021 08:53-0400 SaO2% (BldA) [Mass fraction] 97 % [employer] Kya Gonzalez [employer] Work Phone: [facility] Work Phone: 12-18-2021 08:53-0400 Systolic blood pressure 135 mm[Hg] [employer] Kya Gonzalez [employer] Work Phone: [facility] Work Phone: 12-15-2021 10:53-0400 Body height 165.1 cm [employer] Kya Posadasa [employer] Work Phone: [facility] Work Phone: 12-15-2021 10:53-0400 Body mass index (BMI) [Ratio] 20.5 kg/m2 [employer] Kya Posadasa [employer] Work Phone: [facility] Work Phone: 12-15-2021 10:53-0400 Body temperature 96.9 [degF] [employer] Kya Posadasa [employer] Work Phone: [facility] Work Phone: 12-15-2021 10:53-0400 Body weight 55.79 kg [employer] Kya Gonzalez [employer] Work Phone: [facility] Work Phone: 12-15-2021 10:53-0400 Diastolic blood pressure 64 mm[Hg] [employer] Kya Gonzalez [employer] Work Phone: [facility] Work Phone: 12-15-2021 10:53-0400 Heart rate 73 /min [employer] Kya Posadasa [employer] Work Phone: [facility] Work Phone: 12-15-2021 10:53-0400 Respiratory rate 17 /min [employer] Kya Gonzalez [employer] CLE[employer] Work Phone: [facility] Work Phone: 12-15-2021 10:53-0400 SaO2% (BldA) [Mass fraction] 99 % [employer] Kya Gonzalez [employer] CLE[employer] Work Phone: [facility] Work Phone: 12-15-2021 10:53-0400 Systolic blood pressure 131 mm[Hg] [employer] Kya Gonzalez [employer] Work Phone: [facility] Work Phone: 12-15-2021 08:45-0400 Body height 170.18 cm Xavier Ponce LPN [facility]; [facility] Work Phone: 12-15-2021 08:45-0400 Body mass index (BMI) [Ratio] 19.48 kg/m2 Xavier Ponce LPN [facility]; [facility] Work Phone: 12-15-2021 08:45-0400 Body surface area Derived from formula 1.65 m2 Xavier Ponce LPN [facility]; [facility] Work Phone: 12-15-2021 08:45-0400 Body temperature 97.5 [degF] Xvaier Ponce LPN [facility]; [facility] Work Phone: Comment on above: Method: Infrared 12-15-2021 08:45-0400 Body weight 56.43 kg Xavier Ponce LPN [facility]; [facility] Work Phone: 12-15-2021 08:45-0400 Diastolic blood pressure 64 mm[Hg] Xavier Ponce LPN [facility]; [facility] Work Phone: Comment on above: Patient Position: Sitting; Cuff Location : Left Arm; Cuff Size: Standard 12-15-2021 08:45-0400 Heart rate 76 /min Xavier Ponce LPN [facility]; [facility] Work Phone: Comment on above: Pattern: Regular 12-15-2021 08:45-0400 Respiratory rate 16 /min Xavier Ponce LPN [facility]; [facility] Work Phone: Comment on above: Pattern: Unlabored 12-15-2021 08:45-0400 SaO2% (BldA) [Mass fraction] 98 % Xavier Ponce LPN [facility]; [facility] Work Phone: Comment on above: Room air 12-15-2021 08:45-0400 Systolic blood pressure 110 mm[Hg] Xavier Ponce LPN [facility]; [facility] Work Phone: Comment on above: Patient Position: Sitting; Cuff Location : Left Arm; Cuff Size: Standard 12-11-2021 11:34-0400 Body weight 53.97 kg [employer] Kya Gonzalez [employer] CLE[employer]ER Work Phone: [facility] Work Phone: 12-10-2021 18:23-0400 Heart rate 70 /min [employer] Kya Gonzalez [employer] Work Phone: [facility] Work Phone: 12-10-2021 18:23-0400 Respiratory rate 16 /min [employer] Kya Gonzalez [employer] Work Phone: [facility] Work Phone: 12-10-2021 18:23-0400 SaO2% (BldA) [Mass fraction] 99 % [employer] Kya Gonzalez [employer] CLE[employer] Work Phone: [facility] Work Phone: 12-10-2021 16:40-0400 Body height 167.64 cm [employer] Kya Posadasa [employer] CLE[employer]ER Work Phone: [facility] Work Phone: 12-10-2021 16:40-0400 Body mass index (BMI) [Ratio] 19.7 kg/m2 [employer] Kya Katharinaa [employer] CLE[employer]ER Work Phone: [facility] Work Phone: 12-10-2021 16:40-0400 Body temperature 97.8 [degF] [employer] Kya Posadasa [employer] CLE[employer] Work Phone: [facility] Work Phone: 12-10-2021 16:40-0400 Body weight 55.33 kg [employer]C Kya Posadasa [employer] Work Phone: [facility] Work Phone: 12-10-2021 16:40-0400 Diastolic blood pressure 70 mm[Hg] [employer]C Kya Riveroesa [employer] CLE[employer]ER Work Phone: [facility] Work Phone: 12-10-2021 16:40-0400 Systolic blood pressure 144 mm[Hg] [employer]C Kya Riveroesa [employer] CLE[employer]ER Work Phone: [facility] Work Phone: 12-07-2021 14:56-0400 Body weight 54.54 kg [employer]C Kya Riveroesa [employer] CLE[employer] Work Phone: [facility] Work Phone: 12-07-2021 14:56-0400 Body weight 54.54 kg [employer]C Kya Josefaesa [employer] Work Phone: [facility] Work Phone: 12-07-2021 14:25-0400 Body temperature 98.2 [degF] [employer]C Kya Riveroesa [employer] CLE[employer] Work Phone: [facility] Work Phone: 12-07-2021 14:25-0400 Diastolic blood pressure 76 mm[Hg] [employer]C Kya Posadasa [employer] Work Phone: [facility] Work Phone: 12-07-2021 14:25-0400 Heart rate 75 /min [employer] Kya Riveroesa [employer] CLE[employer] Work Phone: [facility] Work Phone: 12-07-2021 14:25-0400 Respiratory rate 14 /min [employer] Kya Posadasa [employer] CLE[employer] Work Phone: [facility] Work Phone: 12-07-2021 14:25-0400 SaO2% (BldA) [Mass fraction] 100 % [employer] Kya Riveroesa [employer] CLEANER Work Phone: [facility] Work Phone: 12-07-2021 14:25-0400 Systolic blood pressure 132 mm[Hg] [employer]C Kya Posadasa [employer] CLE[employer]ER Work Phone: [facility] Work Phone: 12-07-2021 14:25-0400 Body temperature 98.2 [degF] [employer] CLE[employer]C Kya Posadasa [employer] CLE[employer]ER Work Phone: [facility] Work Phone: 12-07-2021 14:25-0400 Diastolic blood pressure 76 mm[Hg] [employer]C Kya Riveroesa [employer] CLE[employer]ER Work Phone: [facility] Work Phone: 12-07-2021 14:25-0400 Heart rate 75 /min [employer]C Kya Riveroesa [employer]OTH CLEANER Work Phone: [facility] Work Phone: 12-07-2021 14:25-0400 Respiratory rate 14 /min [employer] CLE[employer]C Kya Ciesa [employer] CLE[employer]ER Work Phone: [facility] Work Phone: 12-07-2021 14:25-0400 SaO2% (BldA) [Mass fraction] 100 % [employer] Kya Ciesa [employer] CLE[employer]ER Work Phone: [facility] Work Phone: 12-07-2021 14:25-0400 Systolic blood pressure 132 mm[Hg] [employer] CLE[employer]C Kya Gonzalez [employer] CLE[employer]ER Work Phone: [facility] Work Phone: 12-05-2021 15:28-0400 Diastolic blood pressure 91 mm[Hg] Kya Gonzalez Other Phone: [facility] 12-05-2021 15:28-0400 Heart rate 69 /min Kya Gonzalez Other Phone: [facility] 12-05-2021 15:28-0400 Respiratory rate 18 /min Kya Gonzalez Other Phone: [facility] 12-05-2021 15:28-0400 SaO2% (BldA) [Mass fraction] 98 % Kya Gonzalez Other Phone: [facility] 12-05-2021 15:28-0400 Systolic blood pressure 133 mm[Hg] Kya Gonzalez Other Phone: [facility] 12-05-2021 13:05-0400 Body height 170.1 cm Kya Gonzalez Other Phone: [facility] 12-05-2021 13:05-0400 Body temperature 96.62 [degF] Kya Gonzalez Other Phone: [facility] 12-05-2021 13:05-0400 Body weight 55.8 kg Kya Gonzalez Other Phone: [facility] 12-04-2021 15:57-0400 Body height 167.64 cm Kya Gonzalez Work Phone: DS-Xdgqfzifzfyejj-Hd ron Work Phone: 12-04-2021 15:57-0400 Body mass index (BMI) [Ratio] 19.91 kg/m2 Kya Gonzalez Work Phone: FJ-Osdyognynnaceq-Vc mike Work Phone: 12-04-2021 15:57-0400 Body surface area Derived from formula 1.63 m2 Kya Gonzalez Work Phone: JW-Ykmipaxioewomg-Ec ron Work Phone: 12-04-2021 15:57-0400 Body weight 55.97 kg Kya Gonzalez Work Phone: IO-Nyapzaeucqraer-Ek ron Work Phone: 11-29-2021 13:06-0500 Body height 167.64 cm Kya Gonzalez Work Phone: QX-Njttwpxjnsvypk-Fy yoly Work Phone: 11-29-2021 13:06-0500 Body mass index (BMI) [Ratio] 20.19 kg/m2 Kya Gonzalez Work Phone: HE-Vfxbclvrsvxryz-Xn yoly Work Phone: 11-29-2021 13:06-0500 Body surface area Derived from formula 1.64 m2 Kya Gonzalez Work Phone: KI-Majyeyabaexxcw-Ln yoly Work Phone: 11-29-2021 13:06-0500 Body temperature 97.5 [degF] Kya Gonzalez Work Phone: TU-Orbuqfimdhcfql-Wy yoly Work Phone: 11-29-2021 13:06-0500 Body weight 56.75 kg Kya Gonzalez Work Phone: WC-Qcqfnvgihfkgao-Pl yoly Work Phone: 11-07-2021 17:58-0500 SaO2% (BldA) [Mass fraction] 100 % Kya Gonzalez Work Phone: YH-Mooqasddmbwfon-Pk ron Work Phone: 11-07-2021 15:25-0500 SaO2% (BldA) [Mass fraction] 100 % Kya Gonzalez Work Phone: IL-Faloelbbulkemn-Cc mike Work Phone: 11-01-2021 08:16-0500 Body height 167.64 cm Kya Gonzalez Work Phone: KX-Sfflhdaiaazfrn-Vb burban Work Phone: 11-01-2021 08:16-0500 Body mass index (BMI) [Ratio] 19.09 kg/m2 Kya Gonzalez Work Phone: OV-Iibnuigcjabnwb-Jw burban Work Phone: 11-01-2021 08:16-0500 Body surface area Derived from formula 1.6 m2 Kya Gonzalez Work Phone: XA-Qmnmlcwnhggacl-Ff burban Work Phone: 11-01-2021 08:16-0500 Body temperature 95.5 [degF] Kya Gonzalez Work Phone: RK-Hikebxdxsuybsk-Uf burban Work Phone: 11-01-2021 08:16-0500 Body weight 53.64 kg Kya Gonzalez Work Phone: TO-Vcedibasgbnchu-Nf burban Work Phone: 10-16-2021 12:58-0500 Body height 167.64 cm Kay Gonzalez Work Phone: ZT-Erehkqusdzkdmu-Mh ron Work Phone: 10-16-2021 12:58-0500 Body mass index (BMI) [Ratio] 20.34 kg/m2 Kya Gonzalez Work Phone: RJ-Kdfxtjvpljqsuj-Px ron Work Phone: 10-16-2021 12:58-0500 Body surface area Derived from formula 1.64 m2 Kya Gonzalez Work Phone: XK-Fhxtgicbjqsgyz-Xr mike Work Phone: 10-16-2021 12:58-0500 Body weight 57.15 kg Kya Gonzalez Work Phone: TY-Habntkthabblxw-Pv mike Work Phone: 09-23-2021 00:06-0500 Body weight 58.96 kg [employer] Kya Gonzalez BO[employer] CLEANER Work Phone: [facility] Work Phone: 08-23-2021 07:11-0500 Body mass index (BMI) [Ratio] 22.3 kg/m2 [employer] Kya Posadasa BOOTH CLEANER Work Phone: [facility] Work Phone: 08-23-2021 07:11-0500 Body temperature 98 [degF] [employer] CLE[employer]C Kya Gonzalez [employer] CLEANER Work Phone: [facility] Work Phone: 08-23-2021 07:11-0500 Body weight 58.96 kg [employer] CLE[employer]C Kya Gonzalez [employer] CLEANER Work Phone: [facility] Work Phone: 08-23-2021 07:11-0500 Diastolic blood pressure 88 mm[Hg] [employer] CLE[employer]ER[employer]C Kya Posadasa [employer] CLE[employer]ER Work Phone: [facility] Work Phone: 08-23-2021 07:11-0500 Heart rate 95 /min [employer] Kya Posadasa [employer] CLE[employer]ER Work Phone: [facility] Work Phone: 08-23-2021 07:11-0500 Systolic blood pressure 152 mm[Hg] [employer] CLE[employer]ER[employer]C Kya Posadasa [employer] CLEANER Work Phone: [facility] Work Phone: 08-15-2021 09:45-0500 Body height 170.18 cm Caridad Gomez LPN [facility]; [facility] Work Phone: 08-15-2021 09:45-0500 Body mass index (BMI) [Ratio] 20.09 kg/m2 Caridad Gomez LPN [facility]; [facility] Work Phone: 08-15-2021 09:45-0500 Body surface area Derived from formula 1.67 m2 Caridad Gomez [employer] [facility]; [facility] Work Phone: 08-15-2021 09:45-0500 Body temperature 97.8 [degF] Caridad Gomez LPN [facility]; [facility] Work Phone: Comment on above: Method: Temporal 08-15-2021 09:45-0500 Body weight 58.17 kg Caridad Gomez [employer] [facility]; [facility] Work Phone: 08-15-2021 09:45-0500 Diastolic blood pressure 90 mm[Hg] Caridad Gomez [employer] [facility]; [facility] Work Phone: Comment on above: Patient Position: Sitting; Cuff Location : Left Arm; Cuff Size: Standard 08-15-2021 09:45-0500 Heart rate 88 /min Caridad Gomez LPN [facility]; [facility] Work Phone: Comment on above: Pattern: Regular 08-15-2021 09:45-0500 Respiratory rate 16 /min Caridad Gomez [employer] [facility]; [facility] Work Phone: Comment on above: Pattern: Unlabored 08-15-2021 09:45-0500 SaO2% (BldA) [Mass fraction] 99 % Caridad Gomez [employer] [facility]; [facility] Work Phone: Comment on above: Room air 08-15-2021 09:45-0500 Systolic blood pressure 170 mm[Hg] Cairdad Gomez [employer] [facility]; [facility] Work Phone: Comment on above: Patient Position: Sitting; Cuff Location : Left Arm; Cuff Size: Standard 07-26-2021 10:47-0400 Body height 170.18 cm Xavier Ponce LPN [facility]; [facility] Work Phone: 07-26-2021 10:47-0400 Body mass index (BMI) [Ratio] 20.42 kg/m2 Xavier Ponce LPN [facility]; [facility] Work Phone: 07-26-2021 10:47-0400 Body surface area Derived from formula 1.69 m2 Xavier Ponce LPN [facility]; [facility] Work Phone: 07-26-2021 10:47-0400 Body temperature 97.8 [degF] Xavier Ponce LPN [facility]; [facility] Work Phone: Comment on above: Method: Infrared 07-26-2021 10:47-0400 Body weight 59.15 kg Xavier Ponce LPN [facility]; [facility] Work Phone: 07-26-2021 10:47-0400 Diastolic blood pressure 80 mm[Hg] Xavier Ponce LPN [facility]; [facility] Work Phone: Comment on above: Patient Position: Sitting; Cuff Location : Left Arm; Cuff Size: Standard 07-26-2021 10:47-0400 Heart rate 71 /min Xavier Ponce LPN [facility]; [facility] Work Phone: Comment on above: Pattern: Regular 07-26-2021 10:47-0400 Respiratory rate 16 /min Xavier Ponce LPN [facility]; [facility] Work Phone: Comment on above: Pattern: Unlabored 07-26-2021 10:47-0400 SaO2% (BldA) [Mass fraction] 97 % Xavier Ponce LPN [facility]; [facility] Work Phone: Comment on above: Room air 07-26-2021 10:47-0400 Systolic blood pressure 138 mm[Hg] Xavier Ponce LPN [facility]; [facility] Work Phone: Comment on above: Patient Position: Sitting; Cuff Location : Left Arm; Cuff Size: Standard 03-13-2021 14:55-0400 Body height 170.18 cm Xavier Ponce LPN [facility]; [facility] Work Phone: 03-13-2021 14:55-0400 Body mass index (BMI) [Ratio] 19.74 kg/m2 Xavier Ponce LPN [facility]; [facility] Work Phone: 03-13-2021 14:55-0400 Body surface area Derived from formula 1.66 m2 Xavier Ponce LPN [facility]; [facility] Work Phone: 03-13-2021 14:55-0400 Body temperature 97.3 [degF] Xavier Ponce LPN [facility]; [facility] Work Phone: Comment on above: Method: Infrared 03-13-2021 14:55-0400 Body weight 57.16 kg Xavier Ponce LPN [facility]; [facility] Work Phone: 03-13-2021 14:55-0400 Diastolic blood pressure 78 mm[Hg] Xavier Ponce LPN [facility]; [facility] Work Phone: Comment on above: Patient Position: Sitting; Cuff Location : Left Arm; Cuff Size: Standard 03-13-2021 14:55-0400 Heart rate 98 /min Xavier Ponce LPN [facility]; [facility] Work Phone: Comment on above: Pattern: Regular 03-13-2021 14:55-0400 Respiratory rate 16 /min Xavier Ponce LPN [facility]; [facility] Work Phone: Comment on above: Pattern: Unlabored 03-13-2021 14:55-0400 SaO2% (BldA) [Mass fraction] 95 % Xavier Ponce LPN [facility]; [facility] Work Phone: Comment on above: Room air 03-13-2021 14:55-0400 Systolic blood pressure 122 mm[Hg] Xavier Ponce LPN [facility]; [facility] Work Phone: Comment on above: Patient Position: Sitting; Cuff Location : Left Arm; Cuff Size: Standard 03-08-2021 09:52-0400 Body mass index (BMI) [Ratio] 20 kg/m2 [employer] Kya Gonzalez [employer] CLE[employer]ER Work Phone: [facility] Work Phone: 12-02-2020 13:20-0500 BMI (Body Mass Index) 20.36 kg/m2 Xavier Ponce LPN [facility]; [facility] Work Phone: 12-02-2020 13:20-0500 Body Temperature 97.3 [degF] Xavier Ponce LPN [facility]; [facility] Work Phone: Comment on above: Method: Infrared 12-02-2020 13:20-0500 Body weight 58.97 kg Xavier Ponce LPN [facility]; [facility] Work Phone: 12-02-2020 13:20-0500 BP Diastolic 84 mm[Hg] Xavier Ponce LPN [facility]; [facility] Work Phone: Comment on above: Patient Position: Sitting; Cuff Location : Left Arm; Cuff Size: Standard 12-02-2020 13:20-0500 BP Systolic 130 mm[Hg] Xavier Ponce LPN [facility]; [facility] Work Phone: Comment on above: Patient Position: Sitting; Cuff Location : Left Arm; Cuff Size: Standard 12-02-2020 13:20-0500 BSA (Body Surface Area) 1.68 m2 Xavier Ponce LPN [facility]; [facility] Work Phone: 12-02-2020 13:20-0500 Height 170.18 cm Xavier Ponce LPN [facility]; [facility] Work Phone: 12-02-2020 13:20-0500 Pulse (Heart Rate) 68 /min Xavier Ponce [facility] Work Phone: Comment on above: Pattern: Regular 12-02-2020 13:20-0500 Pulse Oximetry 100 % Kya Gonzalez [facility]; [facility] Work Phone: Comment on above: Room air 12-02-2020 13:20-0500 Respiratory Rate 16 /min Xavier Ponce LPN [facility]; [facility] Work Phone: Comment on above: Pattern: Unlabored 12-02-2020 13:20-0500 SaO2% (BldA) [Mass fraction] 100 % Xavier Ponce LPN [facility]; [facility] Work Phone: Comment on above: Room air 11-28-2020 14:34-0500 Body temperature 98.6 [degF] [employer]C Kya Ciesa [employer] CLE[employer]ER Work Phone: [facility] Work Phone: 11-28-2020 14:34-0500 Body weight 58.05 kg [employer]C Kya Ciesa [employer] CLE[employer]ER Work Phone: [facility] Work Phone: 11-28-2020 14:34-0500 Diastolic blood pressure 84 mm[Hg] [employer]C Kya Ciesa [employer] CLE[employer] Work Phone: [facility] Work Phone: 11-28-2020 14:34-0500 Heart rate 76 /min [employer] Kya Ciesa [employer] CLE[employer] Work Phone: [facility] Work Phone: 11-28-2020 14:34-0500 Respiratory rate 16 /min [employer]C Kya Ciesa [employer] CLE[employer] Work Phone: [facility] Work Phone: 11-28-2020 14:34-0500 SaO2% (BldA) [Mass fraction] 99 % [employer] CLE[employer]C Kya Ciesa [employer] CLE[employer] Work Phone: [facility] Work Phone: 11-28-2020 14:34-0500 Systolic blood pressure 149 mm[Hg] [employer] CLE[employer]ER[employer]C Kya Ciesa [employer] CLE[employer] Work Phone: [facility] Work Phone: 08-29-2020 14:50-0500 BMI (Body Mass Index) 23.02 kg/m2 Xavier Ponce LPN [facility]; [facility] Work Phone: 08-29-2020 14:50-0500 Body weight 66.68 kg Xavier [facility]; [facility] Work Phone: 08-29-2020 14:50-0500 BSA (Body Surface Area) 1.77 m2 [facility]; [facility] Work Phone: 08-29-2020 14:50-0500 Height 170.18 cm [facility] Work Phone: 06-29-2020 13:46-0400 BMI (Body Mass Index) 23.02 kg/m2 Kya Posadasa [employer] Work Phone: [facility] Work Phone: 06-29-2020 13:46-0400 Body Temperature 96.9 [degF] Kya Posadasa [employer] Work Phone: [facility] Work Phone: 06-29-2020 13:46-0400 Body weight 66.68 kg Kya Posadasa [employer] Work Phone: [facility] Work Phone: 06-29-2020 13:46-0400 BP Diastolic 80 mm[Hg] Kya Posadasa [employer] Work Phone: [facility] Work Phone: Comment on above: Patient Position: Supine; Cuff Location: Right Arm; Cuff Size: Standard 06-29-2020 13:46-0400 BP Systolic 132 mm[Hg] Kya Posadasa [employer] Work Phone: [facility] Work Phone: Comment on above: Patient Position: Supine; Cuff Location: Right Arm; Cuff Size: Standard 06-29-2020 13:46-0400 BSA (Body Surface Area) 1.77 m2 Kya Posadasa [employer] Work Phone: [facility] Work Phone: 06-29-2020 13:46-0400 Height 170.18 cm Kya Posadasa [employer] Work Phone: [facility] Work Phone: 06-29-2020 13:46-0400 Pulse (Heart Rate) 82 /min Kya Gonzalez [employer] Work Phone: [facility] Work Phone: Comment on above: Pattern: Regular 06-29-2020 13:46-0400 Pulse Oximetry 100 % Kya Gonzalez [facility] Work Phone: Comment on above: Room air 06-29-2020 13:46-0400 SaO2% (BldA) [Mass fraction] 100 % Kya Gonzalez [employer] Work Phone: [facility]; [facility] Work Phone: Comment on above: Room air 04-14-2020 13:54-0400 BMI (Body Mass Index) 23.02 kg/m2 Caridadcolumba Gomez [facility] Work Phone: 04-14-2020 13:54-0400 Body weight 66.68 kg Caridadcolumba Gomez [facility] Work Phone: 04-14-2020 13:54-0400 BSA (Body Surface Area) 1.77 m2 Caridadcolumba Gomez [employer] [facility] Work Phone: 04-14-2020 13:54-0400 Height 170.18 cm Caridad Gomez [employer] [facility] Work Phone: 12-14-2019 11:11-0400 Body Temperature 97.7 [degF] Kya Gonzalez [employer] Work Phone: [facility] Work Phone: 12-14-2019 10:50-0400 BMI (Body Mass Index) 23.02 kg/m2 Xavier Ponce [employer] [facility] Work Phone: 12-14-2019 10:50-0400 Body weight 66.68 kg Xavier Ponce DIRECT[employer] [facility] Work Phone: 12-14-2019 10:50-0400 BSA (Body Surface Area) 1.77 m2 Xavier Ponce DIRECT[employer]ATION [facility] Work Phone: 12-14-2019 10:50-0400 Height 170.18 cm Xavier Ponce [facility] Work Phone: 06-15-2019 17:18-0400 BMI (Body Mass Index) 20.26 kg/m2 Rachel Brooks XB-Xgwfsxxjhsovzg-Xb min [place] [address] Work Phone: 06-15-2019 17:18-0400 Body weight 56.93 kg Rachel Brooks MG-Otolaryngolog y-Ad min [place] [address] Work Phone: 06-15-2019 17:18-0400 BP Diastolic 77 mm[Hg] Rachel Brooks MG-Otolaryngolog y-Ad min [place] [address] Work Phone: 06-15-2019 17:18-0400 BP Systolic 145 mm[Hg] Rachel Brooks MG-Otolaryngolog y-Ad min [place] [address] Work Phone: 06-15-2019 17:18-0400 BSA (Body Surface Area) 1.64 m2 Rachel Brooks XR-Jrbexedwqbsxnw-Ji min [place] [address] Work Phone: 06-15-2019 17:18-0400 Height 167.64 cm Rachel Brooks MG-Otolaryngolog y-Ad min [place] [address] Work Phone: 06-15-2019 17:18-0400 Pulse (Heart Rate) 82 /min Rachel Brooks MG-Otolaryngo logy-Ad min [place] [address] Work Phone: 06-15-2019 17:18-0400 Respiratory Rate 18 /min Rachel Brooks MG-Otolaryngolo gy-Ad min [place] [address] Work Phone: 01-19-2019 11:54-0400 BMI (Body Mass Index) 22.84 kg/m2 Rachel Brooks [place]-Nfubghbkyjqdrc-Fb min [place] [address] Work Phone: 01-19-2019 11:54-0400 BP Diastolic 87 mm[Hg] Rachel Brooks MG-Otolaryngolog y-Ad min [place] [address] Work Phone: 01-19-2019 11:54-0400 BP Systolic 180 mm[Hg] Rachel Brooks MG-Otolaryngolog y-Ad min [place] [address] Work Phone: 01-19-2019 11:54-0400 BSA (Body Surface Area) 1.73 m2 Rachel Brooks IM-Fhffaulyktqzbr-Vx min [place] [address] Work Phone: 01-19-2019 11:54-0400 Height 167.64 cm Rachel Brooks MG-Otolaryngolog y-Ad min [place] [address]00 Work Phone: 01-19-2019 11:54-0400 Pulse (Heart Rate) 91 /min Racheldillan Brooks MG-Otolaryngo logy-Ad min [place] 4500 Work Phone: 01-19-2019 11:54-0400 Weight 64.18 kg Rachel Brooks MG-Otolaryngolog y-Ad min [place] 4500 Work Phone: 01-02-2019 11:29-0400 BMI (Body Mass Index) 23.02 kg/m2 Xavier Ponce [facility] Internal Medicine Work Phone: 01-02-2019 11:29-0400 Body Temperature 99 [degF] Xavier Ponce [facility] Comprehensive Internal Medicine Work Phone: Comment on above: Method: Temporal 01-02-2019 11:29-0400 Body weight 66.68 kg Xavier Ponce DIRECTOR OF VALUATION [facility] Internal Medicine Work Phone: 01-02-2019 11:29-0400 BP Diastolic 82 mm[Hg] Xavier Ponce [facility] Internal Medicine Work Phone: Comment on above: Patient Position: Sitting; Cuff Location : Left Arm; Cuff Size: Standard 01-02-2019 11:29-0400 BP Systolic 144 mm[Hg] [facility] Work Phone: Comment on above: Patient Position: Sitting; Cuff Location : Left Arm; Cuff Size: Standard 01-02-2019 11:29-0400 BSA (Body Surface Area) 1.77 m2 Xavier Ponce LPN [facility] Internal Medicine Work Phone: 01-02-2019 11:29-0400 Height 170.18 cm Xavier Ponce LPN [facility] Internal Medicine Work Phone: 01-02-2019 11:29-0400 Pulse (Heart Rate) 80 /min Xavier Ponce LPN Comprehensiv e Internal Medicine Work Phone: Comment on above: Pattern: Regular 01-02-2019 11:29-0400 Pulse Oximetry 98 % yKa Riveromeganchioma [facility] Internal Medicine Work Phone: Comment on above: Room air 01-02-2019 11:29-0400 Respiratory Rate 17 /min Xavier Ponce LPN [facility] Internal Medicine Work Phone: Comment on above: Pattern: Unlabored 01-02-2019 11:29-0400 SaO2% (BldA) [Mass fraction] 98 % Xavier Ponce LPN [facility] Internal Medicine; [facility] Work Phone: Comment on above: Room air 01-02-2019 11:29-0400 Weight 66.68 kg Kya Gonzalez [facility] Internal Medicine Work Phone: 12-15-2018 14:23-0400 BMI (Body Mass Index) 23.02 kg/m2 Xavier Ponce LPN [facility] Internal Medicine Work Phone: 12-15-2018 14:23-0400 Body Temperature 98.7 [degF] Xavier Ponce LPN [facility] Internal Medicine Work Phone: Comment on above: Method: Temporal 12-15-2018 14:23-0400 Body weight 66.68 kg Xavier Ponce LPN [facility] Work Phone: 12-15-2018 14:23-0400 BP Diastolic 82 mm[Hg] Xavier Ponce LPN [facility] Internal Medicine Work Phone: Comment on above: Patient Position: Sitting; Cuff Location : Left Arm; Cuff Size: Standard 12-15-2018 14:23-0400 BP Systolic 160 mm[Hg] Xavier Ponce LPN [facility] Work Phone: Comment on above: Patient Position: Sitting; Cuff Location : Left Arm; Cuff Size: Standard 12-15-2018 14:23-0400 BSA (Body Surface Area) 1.77 m2 Xavier Ponce LPN [facility] Work Phone: 12-15-2018 14:23-0400 Height 170.18 cm Xavier Ponce LPN [facility] Work Phone: 12-15-2018 14:23-0400 Pulse (Heart Rate) 80 /min Xavier Ponce LPN Comprehensiv e Internal Medicine Work Phone: Comment on above: Pattern: Regular 12-15-2018 14:23-0400 Pulse Oximetry 98 % Kya Monica [facility] Internal Medicine Work Phone: Comment on above: Room air 12-15-2018 14:23-0400 Respiratory Rate 18 /min Xavier Ponce LPN [facility] Work Phone: Comment on above: Pattern: Unlabored 12-15-2018 14:23-0400 SaO2% (BldA) [Mass fraction] 98 % Xavier Ponce LPN [facility]; [facility] Work Phone: Comment on above: Room air 12-15-2018 14:23-0400 Weight 66.68 kg Kya Posadaschioma [facility] Internal Medicine Work Phone: Encounters Encounter Date Encounter Type Care Provider Facility Start: 04-15-2025 ambulatory Sadie Jack Facility :[facility] Start: 03-31-2025 ambulatory Sadie Jack Facility :[facility] Start: 03-25-2025 ambulatory Santiago Sellers Facility: [facility] Start: 03-03-2025 ambulatory Sadie Santiago [facility] [place] Start: 03-03-2025 Non-patient / Non-visit Dr. Loretta villar MD -[facility] Start: 03-03-2025 End: 03-03-2025 ambulatory Sadie Santiago [employer] CLE[employer]ER[employer]C Work Phone: [facility] Work Phone: Start: 03-03-2025 End: 03-03-[address] 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; Cancer of oral cavity (Multi); Tracheostomy dependence (Multi); Acquired hypothyroidism; Oropharyngeal dysphagia; Adverse effect of radiation therapy, subsequent encounter; Open wound of neck, subsequent encounter Start: 03-01-2025 End: 03-01-2025 ambulatory RACHEL M [facility] Ambulatory Start: 02-11-2025 End: 02-11-2025 Patient encounter procedure Elliott Akhtar DO -[facility] Work Phone: Start: 02-11-2025 End: 02-11-2025 ambulatory Sadie Santiago Facility[place] Start: 02-02-2025 End: 02-20-[address] Santiago Sellers DO -Nutritional Services Work Phone: Start: 02-02-2025 End: 02-20-2025 ambulatory Sadie Santiago [employer] CLE[employer]ER[employer]C Work Phone: [facility] Work Phone: Start: 02-02-2025 End: 02-02-[address] Santiago Sellers DO -[facility] Work Phone: Start: 02-02-2025 End: 02-02-2025 ambulatory Sadie Santiago [employer] CLE[employer]ER-C Work Phone: [facility] Work Phone: Start: 01-20-[address] Santiago Sellers DO -Speech Therapy Work Phone: Start: 01-05-2025 End: 01-05-[address] Quincy Simpson MD -[facility] Work Phone: Start: 01-05-2025 End: 01-05-2025 ambulatory Sadie Santiago Facility:[facility] Start: 12-30-[address] Santiago Sellers DO -Speech Therapy Work Phone: Start: 12-29-2024 End: 12-29-2024 ambulatory Sadie Santiago [employer] CLE[employer]C Work Phone: [facility] Work Phone: Start: 12-29-2024 End: 12-29-[address] Quincy Simpson MD -Cat Scan, [facility] Work Phone: Start: 12-29-2024 End: 12-29-2024 ambulatory Sadie Jack Facility:[facility] Start: 12-17-2024 End: 12-17-[address] Quincy Simpson MD Work Phone: [facility] Work Phone: Start: 12-17-2024 End: 12-17-[address] Santiago Sellers DO -Radiology, [facility] Work Phone: Start: 12-17-2024 End: 12-17-2024 ambulatory Santiago Sellers Facility:[facility] Start: 12-16-[address] Santiago Sellers DO -Speech Therapy Work Phone: Start: 10-21-2024 ambulatory Sadie Santiago Facility [facility] Start: 10-21-2024 Non-patient / Non-visit Elliott Mijares nd, DO -[facility] Start: 10-21-2024 End: 10-21-2024 Admission to same day surgery center Elliott Akhtar DO -Endoscopy Work Phone: Start: 10-21-2024 End: 10-21-2024 ambulatory Sadie [place] Facility:[facility] Start: 10-20-2024 Encounter for other preprocedural examination Loretta Jade [facility] Start: 09-28-2024 End: 09-28-[address] Quincy Simpson MD -[facility] Work Phone: Start: 09-28-2024 End: 09-28-2024 ambulatory Sadiejaydon Santiago Facility:[facility] Start: 09-15-2024 ambulatory Sadie Jack Facility :[facility] Start: 09-15-2024 Non-patient / Non-visit Loretta BUNN -[facility] Start: 09-15-2024 End: 09-15-[address] Quincy Simpson MD -Cat Scan, [facility] Work Phone: Start: 09-15-2024 End: 09-15-2024 ambulatory Sadie [place] Facility:[facility] Start: 09-07-2024 End: 09-07-[address] 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 Quincy Simpson MD -Cat Scan, [facility] Work Phone: Start: 08-25-2024 End: 08-25-2024 ambulatory Sadie [place] Facility:[facility] Start: 08-14-2024 End: 08-14-2024 ambulatory Elliott Akhtar Facility:[facility] Start: 08-06-2024 End: 08-22-2024 ambulatory Sadie [place] Facility:[facility] Start: 08-06-2024 End: 08-06-2024 ambulatory Sadie Jack Facility:[facility] Start: 06-24-2024 End: 06-24-2024 ambulatory Sadie Santiago Facility:[facility] Start: 05-19-2024 ambulatory Kya Gonzalez [employer]OTH CLEANER Facility: [facility] Start: 05-13-2024 End: 05-13-2024 ambulatory Sadei Santiago Facility[place] Start: 05-06-2024 End: 05-06-2024 ambulatory Sadie Jack Facility:[facility] Start: 04-13-2024 End: 04-13-2024 Office outpatient visit 25 minutes Rachel Brooks MD Work Phone: [facility] Comment on above: Oropharyngeal dyspha lizzie (Primary Dx); Sensorineural hearing loss (SNHL) of both ears; Acquired hypothyroidism; Cancer of oral cavity (Multi); 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); Adverse effect of radiation therapy, subsequent encounter; Tracheostomy dependence (Multi) Start: 04-13-2024 End: 04-13-2024 ambulatory [facility] Ambulatory Start: 02-03-2024 End: 02-03-2024 Office outpatient visit 25 minutes Rachel Brooks MD Work Phone: [facility] Comment on above: Oropharyngeal dyspha lizzie (Primary Dx); Sensorineural hearing loss (SNHL) of both ears; Cancer of oral cavity (Multi); 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); Adverse effect of radiation therapy, subsequent encounter Start: 11-01-2023 End: 11-01-2023 ambulatory [employer] CLE[employer]C Kya Posadaschioma BOOTH CLEANER Work Phone: [facility] Work Phone: Start: 11-01-2023 End: 11-01-2023 Discharged Recurring [employer] CLE[employer]C Kya Posadaschioma BOOTH CLEANER Work Phone: [facility]-Speech Therapy Work Phone: Start: 09-04-2023 End: 09-04-2023 ambulatory RACHEL BROOKS [facility] Start: 09-03-2023 Non-patient / Non-visit [employer] CLE[employer]C Mack Gonzalez BOOTH CLEANER Work Phone: [facility] Start: 09-03-2023 End: 09-03-2023 Admission to same day surgery center [employer] CLE[employer]ER[employer]C Kya Gonzalez BOOTH CLEANER Work Phone: [facility]-Endoscopy Work Phone: Start: 09-03-2023 End: 09-03-2023 ambulatory [employer] CLE[employer]ER[employer]C Kya Gonzalez BOOTH CLEANER Work Phone: [facility] Work Phone: Start: 09-02-2023 End: 09-02-2023 Office outpatient visit 25 minutes Rachel Brooks MD Work Phone: [facility] Comment on above: Acquired hypothyroid ism (Primary Dx); Oropharyngeal dysphagia; 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); Cancer of oral cavity (CMS/HCC) Start: 08-30-2023 End: 08-30-2023 Patient encounter procedure [employer]OTH CLE[employer]ER-C Kya Gonzalez BOOTH CLEANER Work Phone: [facility] Work Phone: Start: 08-05-2023 End: 08-05-2023 Patient encounter procedure [employer] CLE[employer]ER-C Kya Gonzalez BOOTH CLEANER Work Phone: [facility]-Radiology, [facility] Work Phone: Start: 08-05-2023 End: 08-05-2023 Patient encounter procedure BOOTH CLE[employer]ER-C Kya Gonzalez BOOTH CLEANER Work Phone: [facility] Work Phone: Start: 07-29-2023 End: 07-29-2023 ambulatory [employer] CLE[employer]ER[employer]C Kya Gonzalez BOOTH CLEANER Work Phone: [facility] Work Phone: Start: 07-29-2023 End: 07-29-2023 Patient encounter procedure [employer] CLE[employer]ER-C Kya Posadasa BOOTH CLEANER Work Phone: [facility]-Cat Scan, [facility] Work Phone: Start: 07-22-2023 End: 07-24-2023 Office outpatient visit 15 minutes Sadie Santiago CNP Work Phone: [facility] Start: 07-22-2023 Sadie Santiago FISH CLEANER Work Phone: [facility] Start: 07-10-2023 Registered Recurring [employer] CLE[employer]C Kya Gonzalez BOOTH CLEANER Work Phone: [facility]-Speech Therapy Work Phone: Start: 05-22-2023 End: 05-22-2023 Patient encounter procedure [employer] CLE[employer]ER-C Kya Gonzalez BOOTH CLEANER Work Phone: [facility] Work Phone: Start: 04-25-2023 Patient encounter procedure Kya Gonzalez Work Phone: [facility] Work Phone: Start: 04-25-2023 ambulatory Ms. Kya Gonzalez Facili ty:[id number] Start: 04-12-2023 End: 04-12-2023 Sadie Santiago FISH CLEANER Work Phone: [facility] Start: 04-10-2023 Non-patient / Non-visit [employer] CLE[employer]ER[employer]C Mack Gonzalez BOOTH CLEANER Work Phone: [facility] Start: 04-10-2023 Registered Recurring [employer] CLE[employer]ER-C Kya Gonzalez BOOTH CLEANER Work Phone: [facility]-Speech Therapy Work Phone: Start: 04-10-2023 End: 04-10-2023 ambulatory [employer]OTH CLE[employer]ER-C Kya Gonzalez BOOTH CLEANER Work Phone: [facility] Work Phone: Start: 04-10-2023 End: 04-10-2023 Discharged Recurring [employer]OTH CLE[employer]ER-C Kya Gonzalez BOOTH CLEANER Work Phone: [facility] Work Phone: Start: 04-04-2023 Patient encounter procedure Kya Gonzalez Work Phone: [facility] Work Phone: Start: 04-04-2023 [id number] Start: 04-03-2023 Non-patient / Non-visit BOOTH CLE[employer]ER-C M glory Posadasa BOOTH CLEANER Work Phone: [facility] Start: 03-27-2023 Non-patient / Non-visit [employer]OTH CLE[employer]ER-C M gloryamanda Riveroesa BOOTH CLEANER Work Phone: [facility] Start: 03-20-2023 Non-patient / Non-visit BOOTH CLE[employer]ER-C M glory Posadasa BOOTH CLEANER Work Phone: [facility] Start: 03-20-2023 End: 03-22-2023 ambulatory [employer]OTH CLE[employer]ER-C Kya Gonzalez BOOTH CLEANER Work Phone: [facility] Work Phone: Start: 03-20-2023 End: 03-22-2023 Discharged Recurring [employer]OTH CLE[employer]ER-C Kya Gonzalez BOOTH CLEANER Work Phone: [facility] Work Phone: Start: 03-14-2023 Patient encounter procedure Kya Gonzalez Work Phone: [facility]-Sohjlfwlxrpfgf-Zpxaa Work Phone: Start: 03-14-[address] Segundo Chamorro Facility:[id number] Start: 03-13-2023 Non-patient / Non-visit [employer]OTH CLE[employer]ER-C Mack Posadasa BOOTH CLEANER Work Phone: [facility] Start: 03-06-2023 Non-patient / Non-visit [employer]OTH CLE[employer]ER-C Mack Posadasa BOOTH CLEANER Work Phone: [facility] Start: 03-06-2023 Office outpatient ne w 30 minutes Kya Gonzalez Work Phone: RY-Mxfybgdjnpcwlx-Okxzf Work Phone: Start: 03-06-[address] Rachel Brooks Facility:[id number] Start: 02-27-2023 Non-patient / Non-visit BOOTH CLE[employer]ER-C M glory Posadasa BOOTH CLEANER Work Phone: [facility] Start: 02-25-2023 Office outpatient vi sit 15 minutes Kya Browning Josefameganchioma Work Phone: GE-Uwuqxbmvzmbagq-Zhfwgon rg Work Phone: Start: 02-25-2023 Patient encounter procedure Kya Browning Monica Work Phone: XF-Sfznuilizidjpq-Rvwsywn rg Work Phone: Start: 02-25-[address] Rachel Brooks Facility:[id number] Start: 02-20-2023 Non-patient / Non-visit BOOTH CLE[employer]ER-C M glory Posadasa BOOTH CLEANER Work Phone: [facility] Start: 02-20-2023 End: 02-20-2023 ambulatory BOOTH CLEANER-C Kya Gonzalez BOOTH CLEANER Work Phone: [facility] Work Phone: Start: 02-20-2023 End: 02-20-2023 Discharged Recurring BOOTH CLEANER-C Kya Gonzalez BOOTH CLEANER [facility] Start: 02-13-2023 Non-patient / Non-visit BOOTH CLEANER-C M glory Riveroesa BOOTH CLEANER Work Phone: [facility] Start: 02-06-2023 Non-patient / Non-visit BOOTH CLEANER-C M glory Ciesa BOOTH CLEANER Work Phone: [facility] Start: 01-31-2023 End: 01-31-2023 Patient encounter procedure BOOTH CLEANER-C Kya Gonzalez BOOTH CLEANER Work Phone: [facility] Start: 01-30-2023 Non-patient / Non-visit BOOTH CLEANER-C M glory Ciesa BOOTH CLEANER Work Phone: [facility] Start: 01-30-2023 Registered Recurring BOOTH CLEANER-C Kya Gonzalez BOOTH CLEANER [facility] Start: 01-28-[address] Rachel Brooks Facility:[id number] Start: 01-28-2023 End: 01-28-2023 ambulatory BOOTH CLE[employer]ER-C Kya Josefadanya BOOTH CLEANER Work Phone: [facility] Work Phone: Start: 01-28-2023 End: 01-28-2023 Patient encounter procedure Kya Riveromeganchioma Work Phone: [facility] Start: 01-23-2023 Non-patient / Non-visit [employer]OTH CLE[employer]ER-C Mack Gonzalez BOOTH CLEANER Work Phone: [facility] Start: 01-21-2023 End: 01-21-2023 Sadie Santiago CNP Work Phone: [facility] Start: 01-16-2023 ambulatory Sadie Santiago CNP [facility] Start: 01-16-2023 Non-patient / Non-visit [employer]OTH CLE[employer]ER-C Mack Gonzalez BOOTH CLEANER Work Phone: [facility] Start: 01-16-2023 End: 01-21-2023 Office outpatient visit 15 minutes Sadie Santiago CNP Work Phone: [facility] Start: 01-16-2023 Sadie Santiago CNP Work Phone: [facility] Start: 01-16-2023 End: 01-20-2023 ambulatory BOOTH CLE[employer]ER-C Kya Katharinachioma BOOTH CLEANER Work Phone: [facility] Work Phone: Start: 01-16-2023 End: 01-20-2023 Discharged Recurring BOOTH CLE[employer]ER-C Kya Josefadanya BOOTH CLEANER [facility] Start: 01-09-2023 Non-patient / Non-visit BOOTH CLE[employer]ER-C Mack Gonzalez BOOTH CLEANER Work Phone: [facility] Start: 01-02-2023 Non-patient / Non-visit BOOTH CLE[employer]ER-C M glory Posadasa BOOTH CLEANER Work Phone: [facility] Start: 12-26-2022 Registered Recurring BOOTH CLEANER-C Kya Gonzalez BOOTH CLEANER Work Phone: [facility]-Speech Therapy Start: 12-26-2022 Non-patient / Non-visit BOOTH CLEANER-C M glory Posadasa BOOTH CLEANER Work Phone: [facility] Start: 12-12-2022 Non-patient / Non-visit BOOTH CLEANER-C M glory Posadasa BOOTH CLEANER Work Phone: [facility] Start: 12-12-2022 End: 12-21-2022 ambulatory BOOTH CLE[employer]ER-C Kya Gonzalez BOOTH CLEANER Work Phone: [facility] Work Phone: Start: 12-12-2022 End: 12-21-2022 Discharged Recurring BOOTH CLEANER-C Kya Gonzalez BOOTH CLEANER [facility] Start: 12-05-2022 Non-patient / Non-visit BOOTH CLEANER-C M glory Posadasa BOOTH CLEANER Work Phone: [facility] Start: 11-28-2022 Non-patient / Non-visit BOOTH CLEANER-C M glory Posadasa BOOTH CLEANER Work Phone: [facility] Start: 11-21-2022 Registered Recurring BOOTH CLEANER-C Kya Gonzalez BOOTH CLEANER Work Phone: [facility] Start: 11-21-2022 End: 11-21-2022 Patient encounter procedure BOOTH CLEANER-C Kya Gonzalez BOOTH CLEANER Work Phone: [facility] Start: 11-14-2022 Non-patient / Non-visit BOOTH CLEANER-C M glory Gonzalez BOOTH CLEANER Work Phone: [facility] Start: 11-14-2022 End: 11-20-2022 ambulatory BOOTH CLEANER-C Kya Gonzalez BOOTH CLEANER Work Phone: [facility] Work Phone: Start: 11-14-2022 End: 11-20-2022 Discharged Recurring BOOTH CLEANER-C Kya Posadaschioma BOOTH CLEANER [facility] Start: 11-07-2022 Non-patient / Non-visit BOOTH CLEANER-C M glory Ciesa BOOTH CLEANER Work Phone: [facility] Start: 11-01-2022 End: 11-01-2022 Patient encounter procedure BOOTH CLEANER-C Kya Riverodanya BOOTH CLEANER Work Phone: [facility] Start: 10-24-2022 Non-patient / Non-visit BOOTH CLEANER-C M glory Ciesa BOOTH CLEANER Work Phone: [facility] Start: 10-10-2022 Non-patient / Non-visit BOOTH CLEANER-C M glory Ciesa BOOTH CLEANER Work Phone: [facility] Start: 10-10-2022 End: 10-23-2022 ambulatory BOOTH CLEANER-C Kya Posadaschioma BOOTH CLEANER Work Phone: [facility] Work Phone: Start: 10-10-2022 End: 10-23-2022 Discharged Recurring BOOTH CLEANER-C Kya Katharinaa BOOTH CLEANER [facility] Start: 10-03-2022 Non-patient / Non-visit BOOTH CLEANER-C M glory Ciesa BOOTH CLEANER Work Phone: [facility] Start: 09-26-2022 Registered Recurring BOOTH CLEANER-C Kya Josfeamegana BOOTH CLEANER [facility] Start: 09-19-2022 Non-patient / Non-visit BOOTH CLEANER-C M glory Ciesa BOOTH CLEANER Work Phone: [facility] Start: 09-19-2022 End: 09-22-2022 Discharged Recurring BOOTH CLEANER-C Kya Gonzalez BOOTH CLEANER Work Phone: [facility] Start: 09-12-2022 Non-patient / Non-visit BOOTH CLEANER-C M glory Ciesa BOOTH CLEANER Work Phone: [facility] Start: 09-05-2022 Non-patient / Non-visit BOOTH CLEANER-C M glory Ciesa BOOTH CLEANER Work Phone: [facility] Start: 08-29-2022 Non-patient / Non-visit BOOTH CLEANER-C M glory Ciesa BOOTH CLEANER Work Phone: [facility] Start: 08-22-2022 Non-patient / Non-visit BOOTH CLEANER-C M glory Ciesa BOOTH CLEANER Work Phone: [facility] Start: 08-22-2022 End: 08-22-2022 Discharged Recurring BOOTH CLEANER-C Kya Gonzalez BOOTH CLEANER Work Phone: [facility] Start: 08-15-2022 Non-patient / Non-visit BOOTH CLEANER-C M glory Ciesa BOOTH CLEANER Work Phone: [facility] Start: 08-08-2022 Non-patient / Non-visit BOOTH CLEANER-C M glory Ciesa BOOTH CLEANER Work Phone: [facility] Start: 08-07-2022 Chart Update Kya Gonzalez Work Phone: [facility] [address] Work Phone: Start: 08-01-2022 Non-patient / Non-visit BOOTH CLEANER-C M glory Ciesa BOOTH CLEANER Work Phone: [facility] Start: 07-31-2022 End: 07-31-2022 Patient encounter procedure BOOTH CLEANER-C Kya Gonzalez BOOTH CLEANER Work Phone: [facility] Start: 07-24-2022 End: 07-24-2022 ambulatory BOOTH CLEANER-C Kya Posadaschioma BOOTH CLEANER Work Phone: [facility] Work Phone: Start: 07-24-2022 End: 07-24-2022 Patient encounter procedure BOOTH CLEANER-C Kya Posadasa BOOTH CLEANER Work Phone: [facility] Start: 07-18-2022 Non-patient / Non-visit BOOTH CLEANER-C M glory Ciesa BOOTH CLEANER Work Phone: [facility] Start: 07-18-2022 End: 07-23-2022 ambulatory BOOTH CLEANER-C Kya Posadasa BOOTH CLEANER Work Phone: [facility] Work Phone: Start: 07-18-2022 End: 07-23-2022 Discharged Recurring BOOTH CLEANER-C Kya Posadaschioma BOOTH CLEANER [facility] Phone[facility] Start: 07-04-2022 Registered Recurring BOOTH CLEANER-C Kya Posadaschioma BOOTH CLEANER Work Phone: [facility] Start: 07-04-2022 Non-patient / Non-visit BOOTH CLEANER-C M glory Ciesa BOOTH CLEANER Work Phone: [facility] Start: 06-27-2022 Non-patient / Non-visit BOOTH CLEANER-C M glory Ciesa BOOTH CLEANER Work Phone: [facility] Start: 06-21-2022 AUDIT Kya Gonzalez Work Phone: BG-Kaqparwfsxnlrm-Ywkth [place] [address] Work Phone: Start: 06-21-2022 Chart Update Kya Gonzalez Work Phone: ZP-Irumsdcmwtyszy-Hjqlq [place] [address] Work Phone: Start: 06-20-2022 Non-patient / Non-visit BOOTH CLEANER-C M glory Ciesa BOOTH CLEANER Work Phone: [facility] Start: 06-20-2022 Registered Recurring BOOTH CLEANER-C Kya Posadasa BOOTH CLEANER Work Phone: [facility] Start: 06-20-2022 End: 2022 Discharged Recurring BOOTH CLEANER-C Kya Posadasa BOOTH CLEANER [facility] Phone[facility] Start: 06-20-2022 Registered Recurring BOOTH CLEANER-C Kya Posadasa BOOTH CLEANER [facility] Phone[facility] Start: 06-18-[address] Rachel Cavazoswler Facility:[id number] Start: 06-18-2022 Office outpatient vi sit 15 minutes Archana Monica Work Phone: TN-Dorfootgfcugdi-Qtymf Work Phone: Start: 06-15-2022 End: 06-15-2022 ambulatory BOOTH CLEANER-C Kya Posadasa BOOTH CLEANER Work Phone: [facility] Work Phone: Start: 06-15-2022 End: 06-15-2022 Patient encounter procedure BOOTH CLEANER-C Kya Posadasa BOOTH CLEANER Work Phone: [facility] Start: 06-13-2022 Non-patient / Non-visit BOOTH CLEANER-C M glory Ciesa BOOTH CLEANER Work Phone: [facility] Start: 06-06-2022 Non-patient / Non-visit BOOTH CLEANER-C M glory Ciesa BOOTH CLEANER Work Phone: [facility] Start: 05-30-2022 Non-patient / Non-visit BOOTH CLEANER-C M glory Ciesa BOOTH CLEANER Work Phone: [facility] Start: 05-23-2022 Non-patient / Non-visit BOOTH CLEANER-C M glory Ciesa BOOTH CLEANER Work Phone: [facility] Start: 05-23-2022 End: 05-23-2022 Patient encounter procedure BOOTH CLEANER-C Kya Josefaesa BOOTH CLEANER Work Phone: [facility] Start: 05-23-2022 Registered Recurring BOOTH CLEANER-C Kya Gonzalez BOOTH CLEANER Work Phone: [facility] Start: 05-23-2022 End: 05-23-2022 ambulatory BOOTH CLEANER-C Kya Gonzalez BOOTH CLEANER Work Phone: [facility] Work Phone: Start: 05-23-2022 End: 05-23-2022 Discharged Recurring BOOTH CLEANER-C Kya Posadasa BOOTH CLEANER Work Phone: [facility] Start: 05-16-2022 AUDIT Kya Gonzalez Work Phone: GE-Gcscrxtijstjiv-Zsmxoim Work Phone: Start: 05-16-2022 Non-patient / Non-visit BOOTH CLEANER-C Mack Posadasa BOOTH CLEANER Work Phone: [facility] Start: 05-14-[address] Rachel Mancia Brooks Facility:[id number] Start: 05-14-2022 Office outpatient vi sit 15 minutes Kya Gonzalez Work Phone: GA-Xwcsejvbfqmoml-Qyvmx Work Phone: Start: 05-09-2022 Non-patient / Non-visit BOOTH CLEANER-C Mack Posadasa BOOTH CLEANER Work Phone: [facility] Start: 05-08-2022 Registered Recurring BOOTH CLEANER-C Kya Gonzalez BOOTH CLEANER Work Phone: [facility] Start: 05-02-2022 Non-patient / Non-visit BOOTH CLEANER-C Mack holder Ciesa BOOTH CLEANER Work Phone: [facility] Start: 04-30-2022 End: 04-30-2022 Patient encounter procedure BOOTH CLEANER-C Kya Posadasa BOOTH CLEANER Work Phone: [facility] Start: 04-25-2022 Non-patient / Non-visit BOOTH CLEANER-C Mack Gonzalez BOOTH CLEANER Work Phone: [facility] Start: 04-17-2022 Registered Recurring BOOTH CLEANER-C Kya Gonzalez BOOTH CLEANER [facility] Start: 04-16-2022 Postop follow up vis it related to original px Kya Gonzalez Work Phone: AF-Toivsyvkybbsnl-Wnssw Work Phone: Start: 04-13-2022 End: 04-13-2022 Patient encounter procedure BOOTH CLEANER-C Kya Gonzalez BOOTH CLEANER Work Phone: [facility], [facility] Start: 04-11-2022 Chart Update Kya Gonzalez Work Phone: QC-Eosnsodrwdipvb-Mhziveo Work Phone: Start: 03-28-2022 End: 04-22-2022 Discharged Recurring BOOTH CLEANER-C Kya Gonzalez BOOTH CLEANER [facility] Start: 03-28-2022 Registered Recurring BOOTH CLEANER-C Kya Gonzalez BOOTH CLEANER Work Phone: [facility] Start: 03-27-2022 End: 03-27-2022 Patient encounter procedure BOOTH CLEANER-C Kya Gonzalez BOOTH CLEANER Work Phone: [facility] Start: 03-14-2022 Registered Recurring BOOTH CLEANER-C Kya Gonzalez BOOTH CLEANER Work Phone: [facility] Start: 02-27-2022 End: 02-27-2022 Patient encounter procedure BOOTH CLEANER-C Kya Gonzalez BOOTH CLEANER Work Phone: [facility] Start: 02-26-2022 End: 02-26-2022 Annotation/Addendum Kya Gonzalez Work Phone: [facility] Start: 02-26-2022 End: 02-26-2022 Sadie Santiago FISH CLEANER Work Phone: [facility] Start: 02-22-2022 Review Kya Gonzalez Work Phone: [facility] Start: 02-16-2022 End: 02-16-2022 Annotation/Addendum Kya Gonzalez Work Phone: [facility] Start: 02-16-2022 End: 02-16-2022 Sadiejaydon Santiago JOHNSON Work Phone: [facility] Start: 02-15-2022 End: 02-15-2022 Office outpatient visit 25 minutes Kya Gonzalez Work Phone: [facility] Start: 02-14-2022 End: 02-14-2022 Patient encounter procedure BOOTH CLEANER-C Kya Gonzalez BOOTH CLEANER Work Phone: [facility] Start: 02-12-2022 Office outpatient vi sit 15 minutes Kya Gonzalez Work Phone: YX-Vsyjjyfbownjrj-Aaxvj [place] [address] Work Phone: Start: 02-12-2022 Patient encounter procedure Kya Gonzalez Work Phone: JZ-Gpxjxgwltgpwqe-Fbaxa Work Phone: Start: 02-06-2022 Registered Recurring BOOTH CLEANER-C Kya Gonzalez BOOTH CLEANER Work Phone: [facility] Start: 02-06-2022 End: 02-06-2022 Patient encounter procedure BOOTH CLEANER-C Kya Gonzalez BOOTH CLEANER Work Phone: [facility] Start: 01-31-2022 End: 01-31-2022 Patient encounter procedure BOOTH CLEANER-C Kya Gonzalez BOOTH CLEANER Work Phone: [facility] Start: 01-25-2022 Non-patient / Non-visit BOOTH CLEANER-C Mack Gonzalez BOOTH CLEANER Work Phone: [facility] Start: 01-25-2022 Registered Recurring BOOTH CLEANER-C Kya Gonzalez BOOTH CLEANER [facility] Start: 01-24-2022 Non-patient / Non-visit BOOTH CLEANER-C M glory Ciesa BOOTH CLEANER Work Phone: [facility] Start: 01-24-2022 End: 01-24-2022 Patient encounter procedure BOOTH CLEANER-C Kya Gonzalez BOOTH CLEANER Work Phone: [facility] Start: 01-23-2022 Non-patient / Non-visit BOOTH CLEANER-C M glory Ciesa BOOTH CLEANER Work Phone: [facility] Start: 01-23-2022 Registered Recurring BOOTH CLEANER-C Kya Gonzalez BOOTH CLEANER [facility] Start: 01-22-2022 Non-patient / Non-visit BOOTH CLEANER-C M glory Ciesa BOOTH CLEANER Work Phone: [facility] Start: 01-22-2022 End: 01-25-2022 Evaluation and management of inpatient BOOTH CLEANER-C Kya Gonzalez BOOTH CLEANER Work Phone: [facility] Start: 01-17-2022 Registered Recurring BOOTH CLEANER-C Kya Gonzalez BOOTH CLEANER Work Phone: [facility] Start: 01-17-2022 End: 01-17-2022 Patient encounter procedure BOOTH CLEANER-C Kya Gonzalez BOOTH CLEANER Work Phone: [facility] Start: 01-15-2022 Patient encounter procedure Kya Gonzalez Work Phone: TC-Vnehecldneqbtc-Dwcxf Work Phone: Start: 01-15-2022 Postop follow up vis it related to original px Kya Gonzalez Work Phone: NG-Yfdsygoeagsagh-Yjkwb [place] [address] Work Phone: Start: 01-12-2022 Registered Recurring BOOTH CLEANER-C Kya Gonzalez BOOTH CLEANER [facility] Start: 01-10-2022 Registered Recurring BOOTH CLEANER-C Kya Posadasa BOOTH CLEANER [facility] Phone[facility] Start: 01-10-2022 End: 01-10-2022 Patient encounter procedure BOOTH CLEANER-C Kya Posadasa BOOTH CLEANER Work Phone: [facility] Start: 01-10-2022 End: 01-10-2022 Patient encounter procedure BOOTH CLEANER-C Kya Posadasa BOOTH CLEANER Work Phone: [facility] Start: 01-08-2022 End: 01-08-2022 Patient encounter procedure BOOTH CLEANER-C Kya Posadasa BOOTH CLEANER Work Phone: [facility], [facility] Start: 01-04-2022 End: 01-04-2022 Patient encounter procedure BOOTH CLEANER-C Kya Posadasa BOOTH CLEANER Work Phone: [facility] Start: 01-03-2022 End: 01-03-2022 Patient encounter procedure BOOTH CLEANER-C Kya Posadasa BOOTH CLEANER Work Phone: [facility] Start: 12-29-2021 Patient encounter procedure Kya Gonzalez Work Phone: LK-Gcbhuoqjcppiug-Uzbrmsl Work Phone: Start: 12-27-2021 End: 12-27-2021 Patient encounter procedure BOOTH CLEANER-C Kya Posadasa BOOTH CLEANER Work Phone: [facility] Start: 12-22-2021 Registered Recurring BOOTH CLEANER-C Kya Posadasa BOOTH CLEANER [facility] Start: 12-21-2021 Registered Recurring BOOTH CLEANER-C Kya Posadasa BOOTH CLEANER [facility] Phone[facility] Start: 12-20-2021 Registered Recurring BOOTH CLEANER-C Kya Posadasa BOOTH CLEANER [facility] Phone[facility] Start: 12-20-2021 End: 12-20-2021 Patient encounter procedure BOOTH CLEANER-C Kya Gonzalez BOOTH CLEANER Work Phone: [facility] Start: 12-19-2021 End: 12-19-2021 Annotation/Addendum Kya Gonzalez Work Phone: [facility] Start: 12-19-2021 End: 12-19-2021 Sadie Santiago FISH CLEANER Work Phone: [facility] Start: 12-18-2021 Postop follow up vis it related to original px Archana Josefameganchioma Work Phone: EF-Aaephtvehqfsry-Hwnig Work Phone: Start: 12-18-2021 Non-patient / Non-visit BOOTH CLEANER-C Mack Gonzalez BOOTH CLEANER Work Phone: [facility] Start: 12-18-2021 End: 12-18-2021 Patient encounter procedure BOOTH CLEANER-C Kya Posadaschioma BOOTH CLEANER Work Phone: [facility] Start: 12-18-2021 End: 12-18-2021 Patient encounter procedure BOOTH CLEANER-C Kya Posadaschioma BOOTH CLEANER Work Phone: [facility] Start: 12-15-2021 Non-patient / Non-visit BOOTH CLEANER-C Mack Posadasa BOOTH CLEANER Work Phone: [facility] Start: 12-15-2021 Telephone encounter Archana Cie sa Work Phone: RN-Pbefwishqlyerp-Qcbiugq Work Phone: Start: 12-15-2021 End: 12-15-2021 Emergency department patient visit BOOTH CLEANER-C Kya Katharinachioma BOOTH CLEANER Work Phone: [facility] Start: 12-15-2021 End: 12-15-2021 Office outpatient visit 25 minutes Kya Katharinachioma Work Phone: [facility] Start: 12-14-2021 Non-patient / Non-visit BOOTH CLEANER-C Mack Gonzalez BOOTH CLEANER Work Phone: [facility] Start: 12-11-2021 End: 12-21-2021 Discharged Recurring BOOTH CLEANER-C Kya Posadaschioma BOOTH CLEANER [facility] Start: 12-11-2021 Registered Recurring BOOTH CLEANER-C Kya Posadaschioma BOOTH CLEANER [facility] Start: 12-10-2021 End: 12-10-2021 Emergency department patient visit BOOTH CLEANER-C Kya Posadaschioma BOOTH CLEANER Work Phone: [facility] Start: 12-08-2021 Non-patient / Non-visit BOOTH CLEANER-C M glory Gonzalez BOOTH CLEANER Work Phone: [facility] Start: 12-07-2021 AUDIT Kya Posadasa Work Phone: IU-Nlwajecgvpbynf-Pxzaw [place] [address] Work Phone: Start: 12-07-2021 Non-patient / Non-visit BOOTH CLEANER-C M glory Monica BOOTH CLEANER Work Phone: [facility] Start: 12-07-2021 Registered Recurring BOOTH CLEANER-C Kya Gonzalez BOOTH CLEANER [facility] Start: 12-07-2021 End: 12-07-2021 Patient encounter procedure BOOTH CLEANER-C Kya Posadaschioma BOOTH CLEANER Work Phone: [facility] Start: 12-06-2021 AUDIT Kya Posadasa Work Phone: BU-Nywptigfnaurbf-Zsynw [place] [address] Work Phone: Start: 12-05-2021 End: 12-05-2021 Emergency department patient visit Avinash Otero [facility] [address] Start: 12-05-2021 End: 12-05-2021 Emergency department patient visit BOOTH CLEANER-C Kya Katharinachioma BOOTH CLEANER Work Phone: [facility] Start: 12-04-2021 Patient encounter procedure Kya Gonzalez Work Phone: TW-Usesdijcwkvxmd-Kljdu Work Phone: Start: 11-29-2021 Patient encounter procedure Kya Gonzalez Work Phone: QA-Beqqojsgjgftzf-Wdpqdxv Work Phone: Start: 11-29-2021 Postop follow up vis it related to original px Kya Gonzalez Work Phone: TU-Rnqlmsdhneurlf-Gwrwf [place] [address] Work Phone: Start: 11-21-2021 Chart Update Kya Gonzalez Work Phone: LI-Htzlxtrxawwsmq-Gysowiv e Work Phone: Start: 11-20-2021 End: 11-20-2021 Departed Referred BOOTH CLEANER-C Kya Gonzalez BOOTH CLEANER Work Phone: [place] [id number] Start: 11-20-2021 Registered Referred BOOTH CLEANER-C Kya Gonzalez BOOTH CLEANER Work Phone: [place] [id number] Start: 11-07-2021 Chart Update Kya oGnzalez Work Phone: RR-Jadhhtylcwxeeu-[address]ths [address] Work Phone: Start: 11-07-2021 Chart Update Kya Gonzalez Work Phone: DA-Acjfdlxpziblyj-Hhkuz [address] Work Phone: Start: 11-07-2021 End: 11-18-2021 Evaluation and management of inpatient Rachel Morales 5 [id number] [id number] Start: 11-03-2021 Chart Update Kya Gonzalez Work Phone: BF-Gytvvcawvcuoem-Wasaf [place] [address] Work Phone: Start: 11-03-2021 Chart Update Kya Gonzalez Work Phone: MI-Tvorcadtxfyicq-Ghizwug e Work Phone: Start: 11-01-2021 AUDIT Kya Gonzalez Work Phone: LW-Ipbgnlovymrkfe-Nlexcqn e Work Phone: Start: 11-01-2021 FUV, Provider: Willie Smith, Status: Pen, Time: 8:00 AM Kya Gonzalez Work Phone: KL-Seipkbeygmbvzs-Wtb for Perioperative Med Work Phone: Start: 11-01-2021 Office outpatient vi sit 25 minutes Kya Gonzalez Work Phone: QH-Tjetxxcukdviaa-Lniflhl n Work Phone: Start: 10-31-2021 AUDIT Kya Gonzalez Work Phone: SD-Drpazyoxlfijju-Muj for Perioperative Med Work Phone: Start: 10-25-2021 Chart Update Kya Gonzalez Work Phone: FR-Xdrunbccwxvzye-Iqcey [place] [address] Work Phone: Start: 10-16-2021 Office outpatient vi sit 40 minutes Kya Gonzalez Work Phone: JL-Pwxsimnvmzgfmw-Dnurk [place] [address] Work Phone: Start: 10-16-2021 Patient encounter procedure Kya Gonzalez Work Phone: LH-Jerdbslxqgncvn-Eidvb Work Phone: Start: 08-23-2021 Patient encounter procedure BOOTH CLEANER-C Kya Gonzalez BOOTH CLEANER Work Phone: [facility] Start: 08-23-2021 Non-patient / Non-visit BOOTH CLEANER-C Mack Gonzalez BOOTH CLEANER Work Phone: [facility] Start: 08-23-2021 End: 09-22-2021 Discharged Recurring BOOTH CLEANER-C Kya Gonzalez BOOTH CLEANER [facility] Start: 08-15-2021 End: 08-15-2021 Office outpatient visit 25 minutes Kya Gonzalez FISH CLEANER Work Phone: [facility] Start: 07-26-2021 End: 07-26-2021 Office outpatient visit 15 minutes Kya Gonzalez FISH CLEANER Work Phone: [facility] Start: 03-13-2021 Review Kya Gonzalez FISH CLEANER Work Phone: [facility] Start: 03-13-2021 End: 03-13-2021 Office outpatient visit 25 minutes Kya Gonzalez FISH CLEANER Work Phone: [facility] Start: 12-02-2020 End: 12-02-2020 Office outpatient visit 15 minutes Kya Posadaschioma [facility] Start: 11-28-2020 Review Kya Gonzalez Jose Antonio [facility] Start: 08-29-2020 Review Kya Gonzalez Comprehens [facility] Start: 08-29-2020 End: 08-29-2020 Office outpatient visit 15 minutes Kya Katharinachioma [facility] Start: 06-29-2020 End: 06-29-2020 Office outpatient visit 15 minutes Kya Gonzalez [facility] Start: 06-29-2020 Review Kya Gonzalez Phiens [facility] Start: 05-19-2020 End: 05-19-2020 Lab Order Kya Gonzalez [facility] Start: 05-19-2020 End: 05-19-2020 Sadie Santiago FISH CLEANER Work Phone: [facility] Start: 04-14-2020 End: 04-14-2020 Office outpatient visit 15 minutes Kya Riveromeganchioma [facility] Start: 12-14-2019 End: 12-14-2019 Office outpatient visit 15 minutes Kya Gonzalez [facility] Start: 06-15-2019 Patient encounter procedure Rachel Brooks VV-Omkhcelhepuwbm-Veodd [place] [address] Work Phone: Start: 04-13-2019 Patient encounter procedure Rachel Brooks UA-Cncvzkyipbgyve-Mpczz [place] [address] Work Phone: Start: 03-16-2019 Patient encounter procedure Rachel Brooks HN-Klqakskogfihne-Tlhfd [place] [address] Work Phone: Start: 01-19-2019 Patient encounter procedure Rachel Brooks LF-Vnjslnqlvbcpuc-Xgrih [place] [address] Work Phone: Start: 01-05-2019 End: 01-05-2019 Annotation/Addendum Kya Monica [facility] Start: 01-05-2019 End: 01-05-2019 Sadie Santiago CNP Work Phone: [facility] Start: 01-02-2019 End: 01-02-2019 Annotation/Addendum Kya Katharinaa [facility] Start: 01-02-2019 End: 01-02-2019 Sadie Santiago CNP Work Phone: [facility] Start: 01-02-2019 End: 01-02-2019 Office outpatient visit 25 minutes Kya oGnzalez [facility] Start: 01-02-2019 Review Kya Josefaesa Comprehens [facility] Start: 12-19-2018 End: 12-19-2018 Annotation/Addendum Kya Katharinaa [facility] Start: 12-19-2018 End: 12-19-2018 Sadie Santiago CNP Work Phone: [facility] Start: 12-15-2018 Review Kya Katharinaa Comprehens [facility] Start: 12-15-2018 End: 12-15-2018 Office outpatient new 45 minutes Kya Katharinaa [facility] Patient encounter status Kya Gonzalez Work Phone: OT-Pkytbclwisohfc-Eozin Work Phone: Procedures Date Procedure Procedure Detail Performing Clinician Start: 12-29-2024 CT of thorax with contrast Sadie Santiago NP-C Work Phone: Start: 12-17-[address] Quincy Simpson MD Work Phone: Start: 09-15-2024 Plain chest X-ray Dr. Quincy Simpson MD Work Phone: Start: 09-15-2024 Plain chest X-ray Dr. Quincy Simpson MD Work Phone: Start: 09-15-2024 Biopsy/Inj or Needle Placement Dr. Quincy Simpson MD Work Phone: Start: 08-25-2024 CT of thorax with contrast Dr. Quincy Simpson MD Work Phone: Start: 04-13-2024 Follow-up visit Follow-up RACHEL Carpio BROOKS Start: 09-04-2023 XR CHEST 2 VIEWS RACHEL CAVAZOSWLER Start: 09-03-2023 Esophagogastroduodenoscopy BOOTH CLEANER-C Kya Ciesa BOOTH CLEANER Work Phone: Start: 08-05-2023 Videoswallow BOOTH CLEANER-C Kya Ciesa BOOTH CLEANER Work Phone: Start: 07-29-2023 CT of soft tissues of neck with contrast BOOTH CLEANER-C Kya Ciesa BOOTH CLEANER Work Phone: Start: 07-29-2023 CT of thorax with contrast BOOTH CLEANER-C Kya Ciesa BOOTH CLEANER Work Phone: Start: 05-22-2023 End: 05-22-2023 Procedure Note: See Note; NOTES: [facility] [address] [place] [id number] OFFICE VISIT Date of Service: 05/22/23 1102 MR#: [id number] Acct: [id number] Name: MY JAMA Rep #: [id number] : 1960 From: Quincy Simpson MD Age/Sex: 62/M Location: [facility] Status: Signed HPI Subjective Date of Service 05/22/23 Chief Complaint Recurrent head and neck cancer follow-up History of Present Illness 62-year-old male Ex-smoker and heavy alcohol user who presented with a painless left neck mass that progressively increased in size over the course of the past couple of months. December 17, 2018 CT soft tissues of the neck: FINDINGS: There is a rim-enhancing centrally cystic mass distal to the angle the mandible, lateral to the hyoid cartilage, along the anterior margin of the sternocleidomastoid muscle. Wall thickness up to 4.9 mm. Process measures approximately 1.8 cm craniocaudal, 1.8 cm transverse, 2.9 cm anterior-posterior. Posteriorly and deep to the sternomastoid muscle, single mildly enlarged lymph node measuring 1.2 x 1.6 cm. A few additional shotty lymph nodes are present on the left. Normal thyroid. Normal submandibular glands and parotid glands. There is no right cervical lymphadenopathy. Pharyngeal and laryngeal soft tissues appear normal. Multilevel cervical spondylosis with disc disease most notable at C5-C6 with uncovertebral joint hypertrophy contributing to mild foraminal narrowing. Mucoperiosteal thickening and mucous retention cysts of the maxillary sinuses. Solitary opacified posterior right ethmoid sinus. Mastoid air cells and middle ear cavities clear. 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 December 17, 2018 CT chest: FINDINGS: Supraclavicular: No acute process within the [id number]-ds-hbwg. Body wall soft tissues: No acute process. Upper abdomen: No acute process. Osseous structures: No acute process. Mild scoliosis, moderate kyphosis, mild multilevel thoracic spondylosis. Mediastinum: No acute process. Cardiovascular: No acute process. Lungs: A few small scattered pulmonary nodules are present. The largest is in the right upper lobe anterior segment, series 6 image 73, 5 cm, solid features, smooth margins. Unremarkable airways. IMPRESSION: No acute thoracic process is evident. Small pulmonary nodules. The largest measures approximately 5 mm. Follow-up low-dose CT chest is recommended in 1 year for pulmonary nodule surveillance purposes. December 22, 2018 DIAGNOSIS CYTOLOGY A. 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 See comment. B. 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 ANTIBODY / CLONE RESULT Block A AE1-3 (AE1/AE3/PCK26) positive CK7 (OV-TL12/30) negative CK8 (68edqrA19) positive, weak CK20 (KS20.8) negative TTF-1 (8G7G3/1) negative Napsin A (Rabbit Polyclonal) negative HepPar (OCh1E5) negative RCC (PN-15) negative PSAP (PASE/4LJ) negative CK5-6 (D5 1684) positive P16 (E6H4) negative P40 (BC28) positive, focal January 02, 2019: Patient was evaluated by ENT : oral and oropharyngeal mucosa were normal. Flexible laryngoscopy was performed which demonstrated no evidence of lesion. Small cystic lesion of the uvula was felt to be benign. January 05, 2019 PET/CT: IMPRESSION: 1. ABNORMAL EXAMINATION INDICATIVE OF MALIGNANT-VIABLE NEOPLASM. 2. Increased glucose concentration observed in the left lateral neck fulfills quantitative criteria for viable neoplasm. 3. Asymmetric enhanced FDG distribution noted in the left pharyngeal mucosal space may be further investigated with rigorous clinical examination. 4. No other quantitatively significant hypermetabolic abnormalities are noted. There is no definitive scintigraphic evidence of distant metastatic disease. January 30, 2019: left tonsil excision and uvula excision. Pathology displayed no evidence of malignancy or high-grade squamous dysplasia. There was noted to be submucosal dilated minor salivary gland duct with oncocytic metaplasia in the uvula. In preparation for locoregional combined chemoradiation patient Patient underwent multiple dental extractions, placement of PEG tube and port. February 10 through March 25, 2019 combined modality therapy (see below for details) May 13, 2019: CT chest: Comparison is made with prior study in December 17, 2018 There is persistent multifocal nodular pleural thickening or tiny pleural-based nodules in the lower lobes which are unchanged in size or number since previous study. The dominant nodule in the right lower lobe is not changed appreciably in size since prior exam June 29, 2019 PET/CT: IMPRESSION: 1. NEGATIVE EXAMINATION. There is no definitive quantitative scintigraphic evidence of recurrent-metastatic viable neoplasm. 2. There is interval metabolic resolution of the previously identified left lateral neck and left pharyngeal mucosal space hypermetabolic abnormalities. 3. Overall, compared to the prior FDG PET study dated 01/05/19, there is current absence of defined viable neoplastic disease with interval resolution of the prior defined hypermetabolic foci, as articulated above. October 07, 2019 CT chest: IMPRESSION: Normal enhanced CT Chest examination. April 06, 2020 CT chest: IMPRESSION: 1. Bilateral pulmonary nodules, stable in the interval. Appropriate follow-up using Fleischner Society criteria is recommended. 2. Dilatation of the main pulmonary artery measuring up to 3.2 cm in diameter. This may be associated with pulmonary hypertension. 3. Increased thoracic kyphosis. Diffuse endplate spondylosis of the visualized cervical, thoracic, and lumbar spine. No lytic or blastic osseous changes are seen. September 02, 2020 CT chest: FINDINGS: Lungs are severely emphysematous with multiple scattered stable nodules. There is a new small, 3 mm nodule in the anterior segment of the right upper lobe, image 36/136 series #4. Remainder of the nodules are stable since priors and are all less than 5 mm and low risk appearing. Additional 1 -- 2 mm nodules are present and are too small to reliably characterize between the current and prior scan due to differences in technique, inspiration, etc. Central airways are patent. Pleural surfaces are intact. Mediastinal contents are normal. Cardiac chambers are normal in size and shape. Pericardium is normal. Osseous structures are intact with exaggerated lower thoracic kyphosis without osseous lesions. Upper abdominal structures are normal. IMPRESSION: 1. Severe emphysema. 2. Multiple low risk and stable over many nodules. CT chest February 27, 2021 IMPRESSION: Stable examination. Stable emphysematous changes. CT neck August 23, 2021: demonstrated evidence of bony destruction involving the mid anterior aspect of the mandible. The transverse dimension of the destruction measures 2.1 cm. There appears to be a 2.6 x 3.7 cm soft tissue mass overlying the anterior aspect of the midportion of the mandible, should rule out neoplastic process. No other abnormalities are appreciated. PET/CT restaging October 11, 2021: demonstrated heterogeneous increased FDG distribution defined in the anterior midline mandible extending into the periosseous soft tissue anteriorly with a calculated max of SUV of 12 maximum diameter of 5.1 x 5.5 cm. No other quantitatively significant hypermetabolic abnormalities are noted. November 07, 2021 direct laryngoscopy, flexible bronchoscopy, flexible esophagoscopy, PEG tube placement, tracheostomy, composite resection of oral cavity, excision of skin and soft tissue measuring 8 x 9 cm, segmental mandibulectomy, right selective neck dissection of levels 1 through 4 and left neck exploration with reconstruction with thigh free flap and had complex neck closure with split thickness skin graft. 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 There was skin invasion present. LVSI not identified. PNI present and focal. Right posterior floor of mouth mucosal margin is involved by invasive carcinoma, left posterior floor of mouth margin is involved by high-grade dysplasia/in situ disease. Right skin soft tissue margin is less than 1 mm, right oral soft tissue margin is 1.5 mm, posterior soft tissue margin is 2.5-3 mm. 3 lymph nodes were involved 2 involving the right level 1 and 1 involving the right level 4, largest deposit was 3 mm and no DEREK was noted. November 09, 2021 postoperative course was complicated by arterial clotting and taken back to the OR for arterial release, flap checks were stable following the takeback. July 24, [address]: FINDINGS: CHEST A tracheostomy tube is in situ. Hyperinflation.??? Mild degree of emphysematous changes with scarring in the anterior aspect of the right lung apex.??? Stable 5.4 mm noncalcified nodule in the lateral aspect of the right upper lobe as seen on axial image #77 and coronal image #89.??? There is no demonstrated pleural abnormality. Normal heart and pericardium. Normal mediastinum.??? Normal hilar regions. Normal unenhanced pulmonary arteries. ??? Normal aorta arch and descending thoracic aorta. There are multi-level degenerative changes of the thoracic spine. Increased kyphosis. There is no demonstrated abnormality of the visualized upper abdomen. IMPRESSION: Hyperinflation and mild degree of the emphysematous changes.??? There has been no change. July 24, 2022 CT soft tissues of the neck: IMPRESSION: Status post resection of the destructive mass lesion in the anterior midportion of the mandible with bony destruction. Diffuse edematous changes with skin thickening of the visualized cervical region. January 28, [address]: IMPRESSION: Stable examination. January 28, 2023 CT chest: IMPRESSION: Stable examination. Treatment summary: First-line: * Combined high-dose cisplatin and radiation January through March 2019: 6996 cGy delivered to gross disease involving the left neck, 5940 cGy to the high risk mucosal sites (entire oropharynx) and high risk lymph node sites (left levels 2-5), and 5412 cGy delivered to the low risk mucosal sites (nasopharynx, larynx, hypopharynx) bilateral high level 2, bilateral supraclavicular fossa, and right neck levels 2-5). The patient did receive concurrent chemotherapy with high dose cisplatin (cycle 1: 02/10, cycle 2: 03/02, cycle 3: 03/23). Date of First Treatment: 02/10/2019 Date of Last Treatment: 03/25/2019 Second line: * November 07, 2021 direct laryngoscopy, flexible bronchoscopy, flexible esophagoscopy, PEG tube placement, tracheostomy, composite resection of oral cavity, excision of skin and soft tissue measuring 8 x 9 cm, segmental mandibulectomy, right selective neck dissection of levels 1 through 4 and left neck exploration with reconstruction with thigh free flap and had complex neck closure with split thickness skin graft. * Adjuvant concurrent chemoradiation with carboplatin AUC 2 (first 5 weeks) with 6600 cGy delivered to the area concerning for close/positive margin and 5940 cGy delivered to the flap based reconstruction and right neck levels 1 through 4. He was treated with a simultaneous integrated boost technique using VMAT planning with 6 MV photons. 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 Thrush, oral Surgical History history of biopsy neck History of removal of Port-a-Cath Hx of tonsillectomy S/P percutaneous endoscopic gastrostomy (PEG) tube placement ( 01/26/19) s/p port placement ( 01/26/19) Family History Mother CVA (cerebral vascular accident) Social History Smoking Status: Former smoker quit date: 09/16/21 Tobacco: How many years used: 30 how long ago did patient quit smokin-4 months ago second hand exposure: Yes alcohol intake: former details: August 2021 substance use type: does not use diet: other well-balanced diet: other details: on a soft food diet, hasn't used feeding tube since early October 2022 seatbelt use: sometimes do you feel safe at home: Yes ROS Constitutional Constitutional: Reports systems reviewed and no addt'l complaints, except as documented and other Details: Able to do ADL independently, but went on disability ; Denies anorexia, fatigue, fever(s) or weight loss Eyes Eyes: Reports systems reviewed and no addt'l complaints, except as documented; Denies change in vision ENT HEENT: Reports systems reviewed and no addt'l complaints, except as documented, dry mouth, dysphagia, hearing loss and hoarseness; Denies mouth lesions or mouth pain Cardiovascular Cardiovascular: Reports systems reviewed and no addt'l complaints, except as documented; Denies chest pain with activity or edema Respiratory/Chest Respiratory/Chest: Reports systems reviewed and no addt'l complaints, except as documented, cough and other Details: Clear sputum ; Denies dyspnea or hemoptysis Gastrointestinal Gastrointestinal: Reports systems reviewed and no addt'l complaints, except as documented and other Details: On a soft ground diet, and liquid-based supplements ; Denies change in bowel habits, hematochezia or melena Genitourinary Genitourinary: Reports systems reviewed and no addt'l complaints, except as documented; Denies hematuria Musculoskeletal Musculoskeletal: Reports systems reviewed and no addt'l complaints, except as documented; Denies arthralgias Integumentary Integumentary: Reports systems reviewed and no addt'l complaints, except as documented and other Details: Neck wound is dry and crusted ; Denies new lesions or rash Neurologic Neurologic: Reports systems reviewed and no addt'l complaints, except as documented; Denies headache(s) Psychiatric Psychiatric: Reports systems reviewed and no addt'l complaints, except as documented Endocrine Endocrinology: Reports systems reviewed and no addt'l complaints, except as documented Hematologic/Lymphatic Hematologic/Lymphatic: Reports systems reviewed and no addt'l complaints, except as documented; Denies easy bleeding, easy bruising or lymphadenopathy Allergic/Immunologic Allergic/Immunologic: Reports systems reviewed and no addt'l complaints, except as documented Intake Vital Signs 11/21/22 13:10 01/31/23 10:04 05/22/23 11:03 Height 5 ft 4 in 5 ft 4 in 5 ft 4 in Weight: 57.663 kg BMI 21.8 BP 144/73 H Blood Pressure Location Lt brachial Position Sitting Respiration 18 Pulse 79 Pulse Source Monitor Temp 99.4 F H Temperature Source Temporal Artery Pulse Oximetry (%) 100 Oxygen Delivery Method room air Intake Is patient in pain?: No Allergies No Known Allergies Allergy (Verified 05/22/23 11:05) Medications albuterol sulfate 1.25 mg/3 mL solution for nebulization 1.25 mg (3 mL) inhalation Q4H PRN bronchospasm #90 mL 12/10/21 [Rx Confirmed 05/22/23] amlodipine 5 mg tablet 5 mg PO DAILY bp 01/23/22 [History Confirmed 05/22/23] fluticasone propionate 50 mcg/actuation nasal spray,suspension 1 spray intranasal DAILY health maintenance 01/23/22 [History Confirmed 05/22/23] sodium chloride 1,000 mg soluble tablet 3 g (3 x 1,000 mg) PO BID #60 tabs 01/25/22 [Rx Confirmed 05/22/23] nystatin 100,000 unit/mL oral suspension 1 ml PO Q6H 02/14/22 [History Confirmed 05/22/23] silver sulfadiazine 1 % topical cream 1 applic topical BID skin peeling #85 grams 03/27/22 [Rx Confirmed 05/22/23] guaifenesin 100 mg/5 mL oral liquid 200 mg (10 mL) PO Q4H PRN congestion #473 mL 04/30/22 [Rx Confirmed 05/22/23] oxycodone 5 mg tablet 5 mg PO BID PRN 05/23/22 [History Confirmed 05/22/23] pentoxifylline 400 mg tablet,extended release 400 mg PO TID radiation fibrosis #90 tabs 07/31/22 [Rx Confirmed 05/22/23] vitamin E mixed 1,000 unit capsule 1,000 unit PO DAILY radiation fibrosis #30 caps 07/31/22 [Rx Confirmed 05/22/23] pilocarpine HCl 5 mg tablet 5 mg PO TID xerostomia #90 tabs 11/01/22 [Rx Confirmed 05/22/23] Levothyroxine 100 mcg PO DAILY thyroid 01/31/23 [History Confirmed 05/22/23] Exam Physical Exam Narrative ECOG 1 Hard of hearing Const alert, oriented x3 and no apparent distress General Appearance: cooperative and comfortable HEENT normocephalic HEENT Narrative: Reconstruction of the lower face, Mouth: No thrush Eyes General Eye: normal appearance of both eyes Conjunctiva: conjunctiva normal Sclera: sclera normal Neck no lymphadenopathy and no JVD Neck Narrative: Postoperative changes and flap. postradiation skin induration and a dry crusted wound General: tracheostomy present Lymph Lymphatic: no lymphadenopathy noted Chest Chest: symmetrical chest wall rise Resp Auscultation: diminished lung sounds bilateral and diffuse Cardio regular rate and regular rhythm Jugular Venous Distention: Negative for JVD GI soft to palpation, non-tender and non-distended; Negative for hepatosplenomegaly GI Narrative: PEG tube Inspection: GI tube present no CVA tenderness Back/Spine no thoracic nor lumbar tenderness Extremity General Extremity: Negative for clubbing, cyanosis or edema Skin no rashes or lesions noted Neuro oriented x3, CN's II-XII intact bilaterally and moves all extremities Neuro Narrative: Bilateral symmetric wasting of first interosseous muscles. Coordination / Balance: [id number] test normal Speech: speech abnormal Gait (Neuro): normal gait Psych mental status grossly normal, thought process normal, cooperative and affect normal Coding Level of Care Code Off vis,est,level 4 Exam Problem Focused Diagnoses Head and neck cancer C76.0 Regional lymph node metastasis present C77.9 Lung nodules R91.8 Assessment and Plan Assessment and Plan (1) Head and neck cancer: Status: Chronic (2) Regional lymph node metastasis present: (3) Lung nodules: Status: Chronic Plan 62-year-old male ex-smoker, and excessive alcohol consumption until the diagnosis of 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 Patient is status post tonsillectomies and uveal excision yet no primary identified. Received concomitant chemoradiation January through March 2019 tolerated with expected but no excessive toxicities. He was in complete remission went on surveillance with no evidence to suggest cancer recurrence until August 2021. Indeterminate too small to further characterize lung nodules on initial staging chest CT of November 2018 remains stable for 2 years on imaging through February 2021. 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 Restaging did not suggest systemic disease. October 2021 he underwent radical surgery. Received adjuvant combined modality therapy with radiation and weekly carboplatin chemosensitization November???January. Comorbid conditions: Smoking and excessive alcohol until the time of diagnosis of malignancy. He continued to smoke after the first line of therapy Plan: 1-concluded second line adjuvant combined modality therapy January 2022 and will continue on surveillance. 2-Chronic dried out and scarred wound left neck/ 3. Elective imaging, CT Neck and chest July 2023 4. Follow-up in 6 months, alternating visits between medical oncology and radiation oncology . Impression and plan reviewed with patient . Quincy Simpson MD Environmental Services Floor Tech, [facility] Divisions of Medical Oncology Hematology Department of Internal Medicine [place] [phone] This note was generated using a voice recognition system software. Although it was reviewed by the author prior to finalization, it may still contain incorrect words, spelling, and punctuation that were not noted when reviewing prior to saving. If a clinically significant typo or inaccurately typed phrase is noted, please notify the author. 05/22/23 2754 <Electronically signed by Quincy Simpson MD> Date Quincy Simpson MD Cosigner Signature: Date (if applicable) CC: Sadie Santiago [employer] CLE[employer] Work Phone: Start: 04-03-2023 Anaerobic microbial culture [employer] Kya Posadasa [employer] Work Phone: [phone] Start: 04-03-2023 Investigation of transfusion reaction [employer] Kya Ciesa [employer] Work Phone: [phone] Start: 04-03-2023 Microbial culture, routine [employer] Kya Ciesa [employer] Work Phone: [phone] Start: 02-13-2023 Anaerobic microbial culture [employer] Kya Ciesa [employer] Work Phone: [phone] Start: 02-13-2023 Investigation of transfusion reaction [employer] Kya Ciesa [employer] Work Phone: [phone] Start: 02-13-2023 Microbial culture, routine [employer] Kya Ciesa [employer] Work Phone: Start: 01-31-2023 End: 01-31-2023 Procedure Note: See Note; NOTES: [facility] [place] [address] OFFICE VISIT Date of Service: 01/31/23956 MR#: [id number] Acct: [id number] Name: MY JAMA Rep #: [id number] : 1960 From: Santiago Verito DO Age/Sex: 62/M Location: [facility] [place] Status: Signed Intake Vital Signs 11/01/22 09:37 11/21/22 13:10 01/31/23 10:00 01/31/23 10:04 Height 5 ft 4 in 5 ft 4 in 5 ft 4 in 5 ft 4 in Weight: 125 lb 6 oz BMI 21.5 BP 121/80 H Blood Pressure Location Rt brachial Position Sitting Respiration 16 Pulse 81 Pulse Source Monitor Temp 96.8 F L Temperature Source Temporal Artery Intake Visit Reasons: 3 month f/u H/N, review scans Chief Complaint: Recurrent head and neck cancer follow-up Is patient in pain?: No Allergies No Known Allergies Allergy (Verified 01/31/23 10:00) Medications albuterol sulfate 1.25 mg/3 mL solution for nebulization 1.25 mg (3 mL) inhalation Q4H PRN bronchospasm #90 mL 12/10/21 [Rx Confirmed 01/31/23] amlodipine 5 mg tablet 5 mg PO DAILY bp 01/23/22 [History Confirmed 01/31/23] fluticasone propionate 50 mcg/actuation nasal spray,suspension 1 spray intranasal DAILY health maintenance 01/23/22 [History Confirmed 01/31/23] sodium chloride 1,000 mg soluble tablet 3 g PO BID #60 tabs 01/25/22 [Rx Confirmed 01/31/23] nystatin 100,000 unit/mL oral suspension 1 ml PO Q6H 02/14/22 [History Confirmed 01/31/23] silver sulfadiazine 1 % topical cream 1 applic topical BID skin peeling #85 grams 03/27/22 [Rx Confirmed 01/31/23] guaifenesin 100 mg/5 mL oral liquid 200 mg (10 mL) PO Q4H PRN congestion #473 mL 04/30/22 [Rx Confirmed 01/31/23] oxycodone 5 mg tablet 5 mg PO BID PRN 05/23/22 [History Confirmed 01/31/23] pentoxifylline 400 mg tablet,extended release 400 mg PO TID radiation fibrosis #90 tabs 07/31/22 [Rx Confirmed 01/31/23] vitamin E mixed 1,000 unit capsule 1,000 unit PO DAILY radiation fibrosis #30 caps 07/31/22 [Rx Confirmed 01/31/23] pilocarpine HCl 5 mg tablet 5 mg PO TID xerostomia #90 tabs 11/01/22 [Rx Confirmed 01/31/23] Levothyroxine 100 mcg PO DAILY thyroid 01/31/23 [History] PFSH PFSH Medical History Acid reflux Anemia Cancer related pain Cellulitis Difficulty swallowing Encounter for chemotherapy management Epigastric pain Hypertension malignant squamous cell carcinoma lt neck Mass of left side of neck peg tube removed Regional lymph node metastasis present Sleep disturbance 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 Thrush, oral Home Medications albuterol sulfate 1.25 mg/3 mL solution for nebulization 1.25 mg (3 mL) inhalation Q4H PRN bronchospasm #90 mL 12/10/21 [Rx Last Taken Unknown] amlodipine 5 mg tablet 5 mg PO DAILY bp 01/23/22 [History Last Taken Unknown] fluticasone propionate 50 mcg/actuation nasal spray,suspension 1 spray intranasal DAILY health maintenance 01/23/22 [History Last Taken Unknown] sodium chloride 1,000 mg soluble tablet 3 g PO BID #60 tabs 01/25/22 [Rx Last Taken Unknown] nystatin 100,000 unit/mL oral suspension 1 ml PO Q6H 02/14/22 [History Last Taken Unknown] silver sulfadiazine 1 % topical cream 1 applic topical BID skin peeling #85 grams 03/27/22 [Rx Last Taken Unknown] guaifenesin 100 mg/5 mL oral liquid 200 mg (10 mL) PO Q4H PRN congestion #473 mL 04/30/22 [Rx Last Taken Unknown] oxycodone 5 mg tablet 5 mg PO BID PRN 05/23/22 [History Last Taken Unknown] pentoxifylline 400 mg tablet,extended release 400 mg PO TID radiation fibrosis #90 tabs 07/31/22 [Rx Last Taken Unknown] vitamin E mixed 1,000 unit capsule 1,000 unit PO DAILY radiation fibrosis #30 caps 07/31/22 [Rx Last Taken Unknown] pilocarpine HCl 5 mg tablet 5 mg PO TID xerostomia #90 tabs 11/01/22 [Rx Last Taken Unknown] Levothyroxine 100 mcg PO DAILY thyroid 01/31/23 [History Last Taken Unknown] Allergy/AdvReac Type Severity Reaction Status Date / Time No Known Allergies Allergy Verified 01/31/23 10:00 Family History Mother CVA (cerebral vascular accident) Surgical History history of biopsy neck History of removal of Port-a-Cath Hx of tonsillectomy S/P percutaneous endoscopic gastrostomy (PEG) tube placement ( 01/26/19) s/p port placement ( 01/26/19) Social History Smoking Status: Former smoker quit date: 09/16/21 Tobacco: How many years used: 30 how long ago did patient quit smokin-4 months ago second hand exposure: Yes alcohol intake: former details: August 2021 substance use type: does not use diet: other well-balanced diet: other details: on a soft food diet, hasn't used feeding tube since early October 2022 seatbelt use: sometimes do you feel safe at home: Yes Diagnosis: My Jama is a 62-year-old male diagnosed with 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 From 02/10/2019 ??? 03/25/2019 he received definitive chemoradiation therapy consisting of 6996 cGy in 33 fractions with concurrent high dose cisplatin. 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 From 12/20/2021 ??? 02/06/2022 he received reirradiation with concurrent chemotherapy. History of Present Illness: 04/28/2018: Patient underwent EGD due to odynophagia. This demonstrated significant esophagitis in the distal esophagus measuring 1-2 cm in length. Biopsy was obtained. Duodenum and stomach a ppeared normal. Pathology demonstrated focal changes suggestive of reflux. 12/15/2018: Patient presented to with a left-sided lump involving his neck which was firm and nontender. This lesion was present for about 3-4 weeks. 12/17/2018: CT neck and chest was completed. There are a few small scattered pulmonary nodules present with the largest in the right upper lobe anterior segment measuring 5 mm with solid features and smooth margins. Recommended to have follow-up low-dose chest CT in 1 year for pulmonary nodule surveillance. There is a rim-enhancing centrally cystic mass distal to the angle of the mandible lateral to the hyoid cartilage along the anterior margin of the sternocleidomastoid muscle with wall thickness up to 4.9 mm. Process measures approximately 1.8 cm craniocaudal and 2 1.8 cm transverse and 2.9 cm AP. Posteriorly and deep to the SCM there is a 1.2 x 1.6 cm mildly enlarged lymph node and a few additional shotty lymph nodes present on the left. No evidence of cervical adenopathy on the right. Pharyngeal and laryngeal soft tissues appear normal. 12/22/2018: Ultrasound-guided FNA of the left neck mass was completed and pathology demonstrated malignant cells consistent with keratinizing squamous cell carcinoma with extensive necrosis, p16 negative. 12/31/2018: Evaluation by medical oncology. Recommended ENT evaluation with panendoscopy and PET/CT for staging. 01/02/2019: Patient was evaluated by ENT. On exam he was noted to have a large fixed left cervical radha conglomerate. Also noted was a 1 cm cystic lesion of the uvula. Otherwise oral and orop haryngeal mucosa were normal. Flexible laryngoscopy was performed which demonstrated no evidence of lesion. Small cystic lesion of the uvula was felt to be benign. 01/05/2019: PET scan was performed which demonstrated 2 separate nodular foci of increased glucose metabolism manifest in the left lateral neck level 3 generating a calculated maximum SUV of 8.6 with the larger soft tissue density demonstrating central photopenia in the largest corresponding lesion measured on CT is 2.8 cm x 3.5 cm. There is asymmetric increased FDG distribution defined in the left pharyngeal mucosal space generating a calculated maximum SUV of 3.4 with a maximum axial diameter of corresponding metabolic abnormality measuring 1.9 cm. There is no evidence of metastatic disease identified. Recommendation is to closely clinically evaluate the left pharyngeal area lesion for primary disease. 01/08/2019: Patient underwent dental extraction of numbers 7 through 13 and #14. 01/13/2019: Patient underwent dental extraction of #6 and 2 through 5, he also completed amalgam fillings of #21 through 22 and 28. Following this procedure he was confirmed to be cleared for radiation therapy. 01/26/2019: Patient underwent placement of PEG tube and port. 01/30/2019: Patient completed left tonsil excision and uvula excision. Pathology displayed no evidence of malignancy or high-grade squamous dysplasia. There was noted to be submucosal dilated minor salivary gland duct with oncocytic metaplasia in the uvula. From 02/10/2019 ??? 03/25/2019: Received 6996 cGy delivered to gross disease involving the left neck, 5940 cGy to the high risk mucosal sites (entire oropharynx) and high risk lymph node sites (left levels 2-5), and 5412 cGy delivered to the low risk mucosal sites (nasopharynx, larynx, hypopharynx) bilateral high level 2, bilateral supraclavicular fossa, and right neck levels 2-5). Treatment was completed using dose painting IMRT and a single VMAT plan and he received concurrent chemotherapy with high dose cisplatin (cycle 1: 02/10, cycle 2: 03/02, cycle 3: 03/23). 05/13/2019: CT chest was performed. In comparison to the study in November 2018 there is persistent multifocal nodular pleural thickening or tiny pleural-based nodules in the lower lobes which are unchanged in size or number since the previous study. This measures 4 mm. 06/26/2019: Patient underwent swallow study and then had discussion with speech therapy. Recommendations are for a mechanical soft textured and thin liquid diet. Exercises and other strategies were recommended and speech therapy will continue to follow-up. 06/29/2019: PET scan was performed which demonstrated no definitive quantitative scintigraphic evidence of recurrent/metastatic viable neoplasm, overall when compared to the prior PET scan dated 01/05/2019 there is currently an absence of defined viable neoplastic disease with interval resolution of the primary defined hypermetabolic foci. 07/16/2019: Follow up with medical oncology. Plan for surveillance CT chest in 3 months to reassess nonspecific lung nodules. 03/30/2020: swallow study was performed. Recommendations are for regular/soft textured and thin liquid diet. 12/31/2019: Follow up with ENT. NPL showed no evidence of disease, epiglottic and arytenoid edema present. 04/06/2020: CT chest was performed and demonstrated bilateral pulmonary nodules which are stable since the prior exam. No other evidence of disease is identified. 09/02/2020: CT chest with contrast was performed. This demonstrated severely emphysematous lungs bilaterally with multiple scattered stable small nodules. No evidence of metastatic disease identified. 01/25/2021: Patient had removal of the remaining teeth lower teeth 21???28. Patient was treated with antibiotics for slowly healing fibrotic tissue. Patient is also being treated with Trental/vitamin E. 02/27/2021: CT chest was completed. This demonstrated stable findings including small scattered noncalcified nodules seen in both lungs. 08/23/2021: CT soft tissue neck with contrast was performed. This demonstrated evidence of bony destruction involving the mid anterior aspect of the mandible. The transverse dimension of the destruction measures 2.1 cm. There appears to be a 2.6 x 3.7 cm soft tissue mass overlying the anterior aspect of the midportion of the mandible, should rule out neoplastic process. No other abnormalities are appreciated. 10/11/2021: PET scan was performed. This demonstrated heterogeneous increased FDG distribution defined in the anterior midline mandible extending into the periosseous soft tissue anteriorly with a calculated max of SUV of 12 maximum diameter of 5.1 x 5.5 cm. No other quantitatively significant hypermetabolic abnormalities are noted. 11/07/2021: Patient underwent direct laryngoscopy, flexible bronchoscopy, flexible esophagoscopy, PEG tube placement, tracheostomy, composite resection of oral cavity, excision of skin and soft tissue measuring 8 x 9 cm, segmental mandibulectomy, right selective neck dissection of levels 1 through 4 and left neck exploration for vessels. Reconstruction was thigh free flap and had complex neck closure with split thickness skin graft. 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 There was skin invasion present. LVSI not identified. PNI present and focal. Right posterior floor of mouth mucosal margin is involved by invasive carcinoma, left posterior floor of mouth margin is involved by high-grade dysplasia/in situ disease. Right skin soft tissue margin is less than 1 mm, right oral soft tissue margin is 1.5 mm, posterior soft tissue margin is 2.5-3 mm. 3 lymph nodes were involved 2 involving the right level 1 and 1 involving the right level 4, largest deposit was 3 mm and no DEREK was noted. 11/09/2021. Postoperative course was complicated by arterial clotting and taken back to the OR for arterial release, flap checks were stable following the takeback. From 12/20/2021 ??? 02/06/2022: received reirradiation with weekly carboplatin consisting of 6600 cGy delivered to the area concerning for close/positive margin and 5940 cGy delivered to the flap based reconstruction and right neck levels 1 through 4. 07/24/2022: CT soft tissue neck with contrast was performed.??? This demonstrated that he is status post resection of the destructive mass lesion in the interim and portion of the mandible with bony destruction with diffuse edematous changes and skin thickening in the cervical region.??? No new adenopathy or concerning findings are noted. 07/24/2022: CT chest with contrast was performed.??? This demonstrated hyperinflation and mild degree of emphysematous changes within the lungs.??? There is a stable 5.4 mm noncalcified nodule in the lateral aspect of the right upper lobe and no pleural thickening in this area.??? No other lesions or adenopathy is noted. 06/18/2022: Patient was evaluated by ENT.??? Patient had persistence small open wound of the anterior neck skin which is stable.??? He may require further surgery for closure, recommended against HBO. 01/28/2023: CT neck/chest with contrast was performed.??? This demonstrated a stable 5.4 mm noncalcified nodule in the lateral aspect of the right upper lobe.??? No mediastinal adenopathy is noted.??? There is evidence for screw and plate fixation of the mandible which is unchanged, there is no bony destruction.??? There are no lesions and no adenopathy noted in the head and neck area. Radiation Treatment History: 1) From 02/10/2019 ??? 03/25/2019: Received 6996 cGy delivered to gross disease involving the left neck, 5940 cGy to the high risk mucosal sites (entire oropharynx) and high risk lymph node sites (left levels 2-5), and 5412 cGy delivered to the low risk mucosal sites (nasopharynx, larynx, hypopharynx) bilateral high level 2, bilateral supraclavicular fossa, and right neck levels 2-5). Treatment was completed using dose painting IMRT and a single VMAT plan and he received concurrent chemotherapy with high dose cisplatin (cycle 1: 02/10, cycle 2: 03/02, cycle 3: 03/23). 2) From 12/20/2021 ??? 02/06/2022: received reirradiation with weekly carboplatin consisting of 6600 cGy delivered to the area concerning for close/positive margin and 5940 cGy delivered to the flap based reconstruction and right neck levels 1 through 4. Interval History: Patient presents for routine follow-up approximately 9 months after completing reirradiation to the head and neck. He reports doing fairly well overall. He does have mild pain in the jaw/mouth which is managed by pain management, this pain has progressively improved. Previously noted wound has healed well since his last visit. He is taking all nutrition by mouth and weight has remained stable, PEG removed earlier this week, he eats a soft diet and doesn't have dentures. He continues to work with speech therapy on swallowing and exercises. Reports an occasional cough with swallowing but infrequent. He has persistent dry mouth which is his most notable daily symptom, this is minor. He has persistent mild taste changes but this has improved. He also does report some discomfort at the tracheostomy site but reports no difficulty with managing the trach, he does want to get the trach out whenever he can and discussing with ENT. He denies cough, shortness of breath, chest pain. He reports full arm range of motion and does not have any numbness or weakness. He can complete all ADLs without much difficulty and denies having other problems or concerns at this time. Review of Systems: A 12-point review of systems was completed and was negative except for what is noted in the HPI/Interval History and by the nurse. Physical Exam: Weight: 125.6 lbs (weight at end of treatment 02/06/2022: 126 lbs 9 oz) ECO KARNOFSKY SCORE: 70% CONSTITUTIONAL: Well-developed, well-nourished, and in no apparent distress. HEENT: Mucous membranes mostly moist. No evidence of thrush or lesions within the visualized oropharynx or oral cavity. Edentulous. No trismus. There is flap based reconstruction of the floor of mouth and anterior jaw/mandible as well as skin, lips swollen. Pupils are equal, round, and reactive to light and accommodation. Extraocular movements are intact. Sclerae are anicteric. NECK: Supple, no thyromegaly, and non-tender. Tracheostomy midline. No cervical or supraclavicular adenopathy noted. No neck erythema. Fibrosis involving the left neck. CARDIAC: Regular rate and rhythm. Normal S1, S2. No murmurs, rubs, or gallops. PULMONARY/CHEST: Lungs are clear to auscultation and percussion bilaterally. No wheezes, rhonchi, or crackles noted. No increased work of breathing. ABDOMINAL: Abdomen soft, non-tender, non-distended. No hepatomegaly. Normoactive bowel sounds in all four quadrants. No guarding, rebound. PEG tube in place without abnormality BACK: Straight and aligned. No CVA tenderness. Axial skeleton non-tender to percussion. EXTREMITIES: Full range of motion in all four extremities. No evidence of edema. NEUROLOGICAL EXAM: Alert and oriented x 3. Answers questions and follows commands appropriately. Cranial nerves II through XII are grossly intact. No focal neurological deficit. Speech is fluent. Muscle strength is 5/5 in all muscle groups. Gait and posture without abnormality. PSYCHIATRIC: Appropriate mood and affect for the clinical situation. 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 From 02/10/2019 ??? 03/25/2019 he received definitive chemoradiation therapy consisting of 6996 cGy in 33 fractions with concurrent high dose cisplatin. 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 From 12/20/2021 ??? 02/06/2022 he received reirradiation with concurrent chemotherapy. Plan: Patient returns for follow-up approximately 12 months after completing reirradiation with concurrent carboplatin for head and neck cancer. There is no evidence of disease on exam and CT neck/chest from 07/24/2022 and 01/28/2023 showed no evidence of concerning findings. He has continued to improve from his initial posttreatment evaluation. Healing of the neck has improved. Has quite a bit of fibrosis, did not try trental/vit E prescribed at the last visit, planning to reconsider now after discussion with ENT. Continue follow up with [facility]. He will continue to see ENT every 3 months and I will have him return for routine follow-up 3 months after he sees ENT and he was instructed to call with any further questions or concerns in the interim. Thank you for allowing me to participate in the management and care of your patient. If I may answer any questions in the interim, please do not hesitate to contact me at any time. Santiago Sellers DO, MS Environmental Services Floor Tech, Department of Radiation Oncology [facility] Coding Level of Care Code Off vis,est,level 3 Diagnoses Floor of mouth squamous cell carcinoma C04.9 01/31/23 1024 <Electronically signed by Santiago Sellers DO> Date Santiago Sellers DO Cosigner Signature: Date (if applicable) CC: BOOTH CLEANER-C Kya Monica; MD Sadie Agustin FISH CLEANER Work Phone: Start: 01-28-2023 CT of soft tissues of neck with contrast [employer] CLE[employer]ER-C Kya Gonzalez BOOTH CLE[employer]ER Work Phone: [phone] Start: 01-28-2023 CT of thorax with contrast [employer] CLE[employer]ER-C Kya Gonzalez [employer] CLE[employer]ER Work Phone: Start: 01-28-2023 End: 01-28-2023 Procedure Note: See Note; NOTES: [facility] Imaging Services [address] [place] [address] Chest WITH Contrast MR#: [id number] Acct: [id number] Name: MY JAMA Rep #: [id number] : 1960 M 62 From: Bib ghosh MD PCP: YARI Santillan Status: REG CLI Study: Chest WITH Contrast Date of Exam: 01/28/23 Exam# [id number] Ordering Dr: Santiago Sellers DO STUDY: CT CHEST WITH CONTRAST REASON FOR EXAM: Male, 62 years old. Follow up treated recurrent H N SCC -- please compare to prior RADIATION DOSAGE (If Supplied By Facility): CTDIvol = ( 11.91 ) mGy, DLP = ( 695.60 ) mGycm TECHNIQUE: Transaxial imaging was performed following intravenous administration of IV 100mL Isovue-370. Multiplanar coronal and sagittal images were reformatted. Individualized dose optimization techniques were used for this CT. COMPARISON: Comparison is made with prior study July 24, 2022. FINDINGS: CHEST A tracheostomy tube is seen. It is in good position. Stable small benign-appearing bilateral axillary lymph nodes. Increased interstitial markings at the lung apices likely worse on the right side suggestive of scarring. No pulmonary nodule or mass lesion is seen. Stable 5.4 mm noncalcified nodule in the lateral aspect of the right upper lobe as seen on axial image #76. There is no demonstrated pleural abnormality. Normal heart and pericardium. Normal mediastinum. Normal hilar regions. Normal unenhanced pulmonary arteries. Normal aorta arch and descending thoracic aorta. There are multi-level degenerative changes of the thoracic spine. There is no demonstrated abnormality of the visualized upper abdomen. CT/Chest WITH Contrast IMPRESSION: Stable examination. Electronically Signed: Bib Reeves MD at 12:48 EDT Reading Location ID and State: [facility] / [place] , Service support , CC: YARI Santiago; Dr. Santiago Sellers DO Wood Router Hand: Signed Sadie Santiago CNP Work Phone: Start: 01-28-2023 End: 01-28-2023 Procedure Note: See Note; NOTES: [facility] Imaging Services [address] [place] [id number] Soft Tissue Neck WITH Contrast MR#: [id number] Acct: [id number] Name: MY JAMA Rep #: [id number] : 1960 M 62 From: Bib ghosh MD PCP: YARI Santillan Status: REG CLI Study: Soft Tissue Neck WITH Contrast Date of Exam: 0 01/28/23 Exam# [id number] Ordering Dr: Santiago Sellers DO STUDY: CT SOFT TISSUE NECK WITH CONTRAST REASON FOR EXAM: Male, 62 years old. Follow up treated recurrent H N SCC -- please compare to prior RADIATION DOSAGE (If Supplied By Facility): CTDIvol = ( 11.91 ) mGy, DLP = ( 695.60 ) mGycm TECHNIQUE: The patient was scanned in a multi-detector CT scanner. High resolution transaxial imaging was performed following intravenous administration of IV 100mL Isovue-370. Sagittal and coronal images were reconstructed. Individualized dose optimization techniques were used for this CT. COMPARISON: Comparison is made with prior examination July 24, 2022. FINDINGS: A tracheostomy tube is seen in situ. Once again, there is evidence of diffuse overlying skin thickening as well as subcutaneous cutaneous edema most likely secondary to radiation therapy. Once again, the patient is status post screw and plate fixation of the mandible. This is unchanged. No bony destruction is seen. Normal bilateral parotid glands. Normal bilateral wireless sales associate spaces. Normal bilateral parapharyngeal spaces. Normal bilateral carotid spaces. Normal bilateral sublingual and submandibular glands and spaces. Normal visualized nasopharynx. Normal retropharyngeal space. Normal perivertebral space. Normal visualized bilateral faucial tonsils. The visualized tongue, tongue base and oropharynx are normal. The visualized cervical lymph nodes (levels I-) are within normal size limits, and maintain normal morphology. There is no demonstrated solid or cystic mass lesion. There is no abnormal contrast enhancement. Normal epiglottis, bilateral vallecula and hypopharynx. The pre-epiglottic and paraglottic adipose spaces are normal. Normal visualized bilateral piriform sinuses, aryepiglottic folds, vocal cords, and arytenoid-cricoid articulations. Normal subglottic trachea. Normal bilateral lobes of the thyroid gland. Normal visualized pulmonary apices. Retention cysts or polyps seen in the left maxillary sinus. Mucosal polyp or retention cyst seen at the base of the right maxillary sinus. Mild degree of mucosal thickening of the ethmoid sinuses. There is multilevel degenerative changes of the cervical spine. CT/Soft Tissue Neck WITH Contrast IMPRESSION: Stable examination. Electronically Signed: Bib Reeves MD at 12:44 EDT , CC: YARI Santiago; Dr. Santiago Sellers DO Wood Router Hand: Signed Sadie Santiago FISH CLEANER Work Phone: Start: 01-09-2023 Anaerobic microbial culture BOOTH CLEANERLulu Gonzalez BOOTH CLEANER Work Phone: Start: 01-09-2023 Investigation of transfusion reaction BOOTH CLEANER-C Kya Gonzalez BOOTH CLEANER Work Phone: Start: 01-09-2023 Microbial culture, routine BOOTH CLEANER-C Kya Gonzalez BOOTH CLEANER Work Phone: Start: 11-21-2022 End: 11-21-2022 Procedure Note: See Note; NOTES: [facility] [address] [place] [address] OFFICE VISIT Date of Service: 11/21/22 1303 MR#: [id number] Acct: [id number] Name: MY JAMA Rep #: [id number] : 1960 From: Quincy Simpson MD Age/Sex: 62/M [place] [facility] Status: Signed HPI Subjective Date of Service 11/21/22 Chief Complaint Recurrent head and neck cancer follow-up History of Present Illness 62-year-old male Ex-smoker and heavy alcohol user who presented with a painless left neck mass that progressively increased in size over the course of the past couple of months. December 17, 2018 CT soft tissues of the neck: FINDINGS: There is a rim-enhancing centrally cystic mass distal to the angle the mandible, lateral to the hyoid cartilage, along the anterior margin of the sternocleidomastoid muscle. Wall thickness up to 4.9 mm. Process measures approximately 1.8 cm craniocaudal, 1.8 cm transverse, 2.9 cm anterior-posterior. Posteriorly and deep to the sternomastoid muscle, single mildly enlarged lymph node measuring 1.2 x 1.6 cm. A few additional shotty lymph nodes are present on the left. Normal thyroid. Normal submandibular glands and parotid glands. There is no right cervical lymphadenopathy. Pharyngeal and laryngeal soft tissues appear normal. Multilevel cervical spondylosis with disc disease most notable at C5-C6 with uncovertebral joint hypertrophy contributing to mild foraminal narrowing. Mucoperiosteal thickening and mucous retention cysts of the maxillary sinuses. Solitary opacified posterior right ethmoid sinus. Mastoid air cells and middle ear cavities clear. 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 December 17, 2018 CT chest: FINDINGS: Supraclavicular: No acute process within the bynro-sm-eipl. Body wall soft tissues: No acute process. Upper abdomen: No acute process. Osseous structures: No acute process. Mild scoliosis, moderate kyphosis, mild multilevel thoracic spondylosis. Mediastinum: No acute process. Cardiovascular: No acute process. Lungs: A few small scattered pulmonary nodules are present. The largest is in the right upper lobe anterior segment, series 6 image 73, 5 cm, solid features, smooth margins. Unremarkable airways. IMPRESSION: No acute thoracic process is evident. Small pulmonary nodules. The largest measures approximately 5 mm. Follow-up low-dose CT chest is recommended in 1 year for pulmonary nodule surveillance purposes. December 22, 2018 DIAGNOSIS CYTOLOGY A. 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 See comment. B. 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 ANTIBODY / CLONE RESULT Block A AE1-3 (AE1/AE3/PCK26) positive CK7 (OV-TL12/30) negative CK8 (31uywdO77) positive, weak CK20 (KS20.8) negative TTF-1 (8G7G3/1) negative Napsin A (Rabbit Polyclonal) negative HepPar (OCh1E5) negative RCC (PN-15) negative PSAP (PASE/4LJ) negative CK5-6 (D5 1684) positive P16 (E6H4) negative P40 (BC28) positive, focal January 02, 2019: Patient was evaluated by ENT : oral and oropharyngeal mucosa were normal. Flexible laryngoscopy was performed which demonstrated no evidence of lesion. Small cystic lesion of the uvula was felt to be benign. January 05, 2019 PET/CT: IMPRESSION: 1. ABNORMAL EXAMINATION INDICATIVE OF MALIGNANT-VIABLE NEOPLASM. 2. Increased glucose concentration observed in the left lateral neck fulfills quantitative criteria for viable neoplasm. 3. Asymmetric enhanced FDG distribution noted in the left pharyngeal mucosal space may be further investigated with rigorous clinical examination. 4. No other quantitatively significant hypermetabolic abnormalities are noted. There is no definitive scintigraphic evidence of distant metastatic disease. January 30, 2019: left tonsil excision and uvula excision. Pathology displayed no evidence of malignancy or high-grade squamous dysplasia. There was noted to be submucosal dilated minor salivary gland duct with oncocytic metaplasia in the uvula. In preparation for locoregional combined chemoradiation patient Patient underwent multiple dental extractions, placement of PEG tube and port. February 10 through March 25, 2019 combined modality therapy (see below for details) May 13, 2019: CT chest: Comparison is made with prior study in December 17, 2018 There is persistent multifocal nodular pleural thickening or tiny pleural-based nodules in the lower lobes which are unchanged in size or number since previous study. The dominant nodule in the right lower lobe is not changed appreciably in size since prior exam June 29, 2019 PET/CT: IMPRESSION: 1. NEGATIVE EXAMINATION. There is no definitive quantitative scintigraphic evidence of recurrent-metastatic viable neoplasm. 2. There is interval metabolic resolution of the previously identified left lateral neck and left pharyngeal mucosal space hypermetabolic abnormalities. 3. Overall, compared to the prior FDG PET study dated 01/05/19, there is current absence of defined viable neoplastic disease with interval resolution of the prior defined hypermetabolic foci, as articulated above. October 07, 2019 CT chest: IMPRESSION: Normal enhanced CT Chest examination. April 06, 2020 CT chest: IMPRESSION: 1. Bilateral pulmonary nodules, stable in the interval. Appropriate follow-up using Fleischner Society criteria is recommended. 2. Dilatation of the main pulmonary artery measuring up to 3.2 cm in diameter. This may be associated with pulmonary hypertension. 3. Increased thoracic kyphosis. Diffuse endplate spondylosis of the visualized cervical, thoracic, and lumbar spine. No lytic or blastic osseous changes are seen. September 02, 2020 CT chest: FINDINGS: Lungs are severely emphysematous with multiple scattered stable nodules. There is a new small, 3 mm nodule in the anterior segment of the right upper lobe, image 36/136 series #4. Remainder of the nodules are stable since priors and are all less than 5 mm and low risk appearing. Additional 1 -- 2 mm nodules are present and are too small to reliably characterize between the current and prior scan due to differences in technique, inspiration, etc. Central airways are patent. Pleural surfaces are intact. Mediastinal contents are normal. Cardiac chambers are normal in size and shape. Pericardium is normal. Osseous structures are intact with exaggerated lower thoracic kyphosis without osseous lesions. Upper abdominal structures are normal. IMPRESSION: 1. Severe emphysema. 2. Multiple low risk and stable over many nodules. CT chest February 27, 2021 IMPRESSION: Stable examination. Stable emphysematous changes. CT neck August 23, 2021: demonstrated evidence of bony destruction involving the mid anterior aspect of the mandible. The transverse dimension of the destruction measures 2.1 cm. There appears to be a 2.6 x 3.7 cm soft tissue mass overlying the anterior aspect of the midportion of the mandible, should rule out neoplastic process. No other abnormalities are appreciated. PET/CT restaging October 11, 2021: demonstrated heterogeneous increased FDG distribution defined in the anterior midline mandible extending into the periosseous soft tissue anteriorly with a calculated max of SUV of 12 maximum diameter of 5.1 x 5.5 cm. No other quantitatively significant hypermetabolic abnormalities are noted. November 07, 2021 direct laryngoscopy, flexible bronchoscopy, flexible esophagoscopy, PEG tube placement, tracheostomy, composite resection of oral cavity, excision of skin and soft tissue measuring 8 x 9 cm, segmental mandibulectomy, right selective neck dissection of levels 1 through 4 and left neck exploration with reconstruction with thigh free flap and had complex neck closure with split thickness skin graft. 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 There was skin invasion present. LVSI not identified. PNI present and focal. Right posterior floor of mouth mucosal margin is involved by invasive carcinoma, left posterior floor of mouth margin is involved by high-grade dysplasia/in situ disease. Right skin soft tissue margin is less than 1 mm, right oral soft tissue margin is 1.5 mm, posterior soft tissue margin is 2.5-3 mm. 3 lymph nodes were involved 2 involving the right level 1 and 1 involving the right level 4, largest deposit was 3 mm and no DEREK was noted. November 09, 2021 postoperative course was complicated by arterial clotting and taken back to the OR for arterial release, flap checks were stable following the takeback. July 24, [address]: FINDINGS: CHEST A tracheostomy tube is in situ. Hyperinflation.??? Mild degree of emphysematous changes with scarring in the anterior aspect of the right lung apex.??? Stable 5.4 mm noncalcified nodule in the lateral aspect of the right upper lobe as seen on axial image #77 and coronal image #89.??? There is no demonstrated pleural abnormality. Normal heart and pericardium. Normal mediastinum.??? Normal hilar regions. Normal unenhanced pulmonary arteries. ??? Normal aorta arch and descending thoracic aorta. There are multi-level degenerative changes of the thoracic spine. Increased kyphosis. There is no demonstrated abnormality of the visualized upper abdomen. IMPRESSION: Hyperinflation and mild degree of the emphysematous changes.??? There has been no change. July 24, 2022 CT soft tissues of the neck: IMPRESSION: Status post resection of the destructive mass lesion in the anterior midportion of the mandible with bony destruction. Diffuse edematous changes with skin thickening of the visualized cervical region. Treatment summary: First-line: * Combined high-dose cisplatin and radiation January through March 2019: 6996 cGy delivered to gross disease involving the left neck, 5940 cGy to the high risk mucosal sites (entire oropharynx) and high risk lymph node sites (left levels 2-5), and 5412 cGy delivered to the low risk mucosal sites (nasopharynx, larynx, hypopharynx) bilateral high level 2, bilateral supraclavicular fossa, and right neck levels 2-5). The patient did receive concurrent chemotherapy with high dose cisplatin (cycle 1: 02/10, cycle 2: 03/02, cycle 3: 03/23). Date of First Treatment: 02/10/2019 Date of Last Treatment: 03/25/2019 Second line: * November 07, 2021 direct laryngoscopy, flexible bronchoscopy, flexible esophagoscopy, PEG tube placement, tracheostomy, composite resection of oral cavity, excision of skin and soft tissue measuring 8 x 9 cm, segmental mandibulectomy, right selective neck dissection of levels 1 through 4 and left neck exploration with reconstruction with thigh free flap and had complex neck closure with split thickness skin graft. * Adjuvant concurrent chemoradiation with carboplatin AUC 2 (first 5 weeks) with 6600 cGy delivered to the area concerning for close/positive margin and 5940 cGy delivered to the flap based reconstruction and right neck levels 1 through 4. He was treated with a simultaneous integrated boost technique using VMAT planning with 6 MV photons. 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 Thrush, oral Surgical History history of biopsy neck History of removal of Port-a-Cath Hx of tonsillectomy S/P percutaneous endoscopic gastrostomy (PEG) tube placement ( 01/26/19) s/p port placement ( 01/26/19) Family History Mother CVA (cerebral vascular accident) Social History (Updated 11/21/22 @ 13:08 by Hortencia Weaver) Smoking Status: Former smoker quit date: 09/16/21 Tobacco: How many years used: 30 how long ago did patient quit smokin-4 months ago second hand exposure: Yes alcohol intake: former details: August 2021 substance use type: does not use diet: other well-balanced diet: other details: on a soft food diet, hasn't used feeding tube since early October 2022 seatbelt use: sometimes do you feel safe at home: Yes ROS Constitutional Constitutional: Reports systems reviewed and no addt'l complaints, except as documented and other Details: Able to do ADL independently ; Denies anorexia, fatigue, fever(s) or weight loss Eyes Eyes: Reports systems reviewed and no addt'l complaints, except as documented; Denies change in vision ENT HEENT: Reports systems reviewed and no addt'l complaints, except as documented, dry mouth, dysphagia, hearing loss and hoarseness; Denies mouth lesions or mouth pain Cardiovascular Cardiovascular: Reports systems reviewed and no addt'l complaints, except as documented; Denies chest pain with activity or edema Respiratory/Chest Respiratory/Chest: Reports systems reviewed and no addt'l complaints, except as documented, cough and other Details: Clear sputum ; Denies dyspnea or hemoptysis Gastrointestinal Gastrointestinal: Reports systems reviewed and no addt'l complaints, except as documented and other Details: On a soft diet, last used the feeding tube for nourishment was in early October 2022 ; Denies change in bowel habits, hematochezia or melena Genitourinary Genitourinary: Reports systems reviewed and no addt'l complaints, except as documented; Denies hematuria Musculoskeletal Musculoskeletal: Reports systems reviewed and no addt'l complaints, except as documented; Denies arthralgias Integumentary Integumentary: Reports systems reviewed and no addt'l complaints, except as documented; Denies new lesions or rash Neurologic Neurologic: Reports systems reviewed and no addt'l complaints, except as documented; Denies headache(s) Psychiatric Psychiatric: Reports systems reviewed and no addt'l complaints, except as documented Endocrine Endocrinology: Reports systems reviewed and no addt'l complaints, except as documented Hematologic/Lymphatic Hematologic/Lymphatic: Reports systems reviewed and no addt'l complaints, except as documented; Denies easy bleeding, easy bruising or lymphadenopathy Allergic/Immunologic Allergic/Immunologic: Reports systems reviewed and no addt'l complaints, except as documented Intake Vital Signs 05/23/22 11:35 11/01/22 09:37 11/21/22 13:09 11/21/22 13:10 Height 5 ft 4 in 5 ft 4 in 5 ft 4 in 5 ft 4 in Weight: 56.869 kg BMI 21.5 BP 129/76 H Blood Pressure Location Rt brachial Position Sitting Respiration 18 Pulse 78 Pulse Source Monitor Temp 98.4 F Temperature Source Temporal Artery Pulse Oximetry (%) 100 Oxygen Delivery Method room air Intake Accompanied by: Self Is patient in pain?: Yes (some pain in jaw, currently on antibiotics for infection L side of neck) Allergies No Known Allergies Allergy (Verified 11/21/22 13:05) Medications Levothyroxine 125 mcg PO DAILY thyroid 08/25/20 [History Confirmed 11/21/22] albuterol sulfate 1.25 mg/3 mL solution for nebulization 1.25 mg (3 mL) inhalation Q4H PRN bronchospasm #90 mL 12/10/21 [Rx Confirmed 11/21/22] amlodipine 5 mg tablet 5 mg PO DAILY bp 01/23/22 [History Confirmed 11/21/22] fluticasone propionate 50 mcg/actuation nasal spray,suspension 1 spray intranasal DAILY health maintenance 01/23/22 [History Confirmed 11/21/22] sodium chloride 1,000 mg soluble tablet 3 g PO BID #60 tabs 01/25/22 [Rx Confirmed 11/21/22] nystatin 100,000 unit/mL oral suspension 1 ml PO Q6H 02/14/22 [History Confirmed 11/21/22] silver sulfadiazine 1 % topical cream 1 applic topical BID skin peeling #85 grams 03/27/22 [Rx Confirmed 11/21/22] guaifenesin 100 mg/5 mL oral liquid 200 mg (10 mL) PO Q4H PRN congestion #473 mL 04/30/22 [Rx Confirmed 11/21/22] oxycodone 5 mg tablet 5 mg PO BID PRN 05/23/22 [History Confirmed 11/21/22] pentoxifylline 400 mg tablet,extended release 400 mg PO TID radiation fibrosis #90 tabs 07/31/22 [Rx Confirmed 11/21/22] vitamin E mixed 1,000 unit capsule 1,000 unit PO DAILY radiation fibrosis #30 caps 07/31/22 [Rx Confirmed 11/21/22] pilocarpine HCl 5 mg tablet 5 mg PO TID xerostomia #90 tabs 11/01/22 [Rx Confirmed 11/21/22] Central Venous Access Central Venous Access: No CBC, CMP November 21, 2022 reviewed in EMR Exam Physical Exam Narrative ECOG 1 Hard of hearing Const alert, oriented x3 and no apparent distress General Appearance: cooperative and comfortable HEENT normocephalic HEENT Narrative: Reconstruction of the lower face, soft tissue edema Mouth: No thrush Eyes General Eye: normal appearance of both eyes Conjunctiva: conjunctiva normal Sclera: sclera normal Neck no lymphadenopathy and no JVD Neck Narrative: Postoperative changes and flap. Wound is covered with surgical dressing General: tracheostomy present Lymph Lymphatic: no lymphadenopathy noted Chest Chest: symmetrical chest wall rise Resp Auscultation: diminished lung sounds bilateral and diffuse Cardio regular rate and regular rhythm Jugular Venous Distention: Negative for JVD GI soft to palpation, non-tender and non-distended; Negative for hepatosplenomegaly GI Narrative: PEG tube Inspection: GI tube present no CVA tenderness Back/Spine no thoracic nor lumbar tenderness Extremity General Extremity: Negative for clubbing, cyanosis or edema Skin no rashes or lesions noted Neuro oriented x3, CN's II-XII intact bilaterally and moves all extremities Neuro Narrative: Bilateral symmetric wasting of first interosseous muscles. Coordination / Balance: [id number] test normal Speech: speech abnormal Gait (Neuro): normal gait Psych mental status grossly normal, thought process normal, cooperative and affect normal Coding Level of Care Code Off vis,est,level 4 Exam Problem Focused Diagnoses Head and neck cancer C76.0 Regional lymph node metastasis present C77.9 Lung nodules R91.8 Assessment and Plan Assessment and Plan (1) Head and neck cancer: Status: Chronic (2) Regional lymph node metastasis present: (3) Lung nodules: Status: Chronic Plan 62-year-old male ex-smoker, in addition to excessive alcohol consumption until the diagnosis and start of treatment of 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 Patient is status post tonsillectomies and uveal excision yet no primary identified. Received concomitant chemoradiation January through March 2019 tolerated with expected but no excessive toxicities. He is in complete remission now and is on surveillance with no evidence to suggest cancer recurrence. Residual posttreatment skin hyperpigmentation and induration in the neck area and dry mouth. Indeterminate too small to further characterize lung nodules on initial staging chest CT of November 2018 remains stable for 2 years on imaging through February 2021. 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 Restaging did not suggest systemic disease. October 2021 he underwent radical surgery. Received adjuvant combined modality therapy with radiation and weekly carboplatin chemosensitization November???January. Recovered well from second line treatment, although there is some residual wound that being attended at wound clinic and by October 2022 is no longer tube feed dependent. Comorbid conditions: Smoking and excessive alcohol until the time of diagnosis of malignancy. He continued to smoke after the first line of therapy Plan: 1-concluded adjuvant combined modality therapy January 2022 and will continue on surveillance. 2-feeding tube may be removed with upcoming ENT appointment, no longer in use 3. Chronic wound left neck continue to follow-up with surgery and wound clinic 4. Elective imaging, CT Neck and chest January 2023 5. Follow-up in 6 months, alternating visits between medical oncology and radiation oncology at 3 months intervals. Impression and plan reviewed with patient . Quincy Simpson MD Environmental Services Floor Tech, [facility] Divisions of Medical Oncology Hematology Department of Internal Medicine [place] [phone] This note was generated using a voice recognition system software. Although it was reviewed by the author prior to finalization, it may still contain incorrect words, spelling, and punctuation that were not noted when reviewing prior to saving. If a clinically significant typo or inaccurately typed phrase is noted, please notify the author. 11/21/22 1336 <Electronically signed by Quincy Simpson MD> Date Quincy Simpson MD Cosigner Signature: Date (if applicable) CC: YARI Santiago [facility] Work Phone: Start: 11-01-2022 End: 11-01-2022 Procedure Note: See Note; NOTES: [facility] [address] [place] [id number] OFFICE VISIT Date of Service: 11/01/22929 MR#: [id number] Acct: [id number] Name: MY JAMA Rep #: [id number] : 1960 From: Santiago Verito DO Age/Sex: 62/M Location: [facility] Status: Signed Intake Vital Signs 07/31/22 09:11 11/01/22 09:33 11/01/22 09:37 Height 5 ft 4 in 5 ft 4 in 5 ft 4 in Weight: 127 lb BMI 21.8 BP 117/57 L Blood Pressure Location Rt brachial Position Sitting Respiration 18 Pulse 91 Pulse Source Monitor Temp 97.3 F L Temperature Source Temporal Artery Pulse Oximetry (%) 94 Oxygen Delivery Method room air Intake Visit Reasons: 3 month f/u H/N Is patient in pain?: No Allergies No Known Allergies Allergy (Verified 11/01/22 09:32) Medications Levothyroxine 125 mcg PO DAILY thyroid 08/25/20 [History Confirmed 11/01/22] albuterol sulfate 1.25 mg/3 mL solution for nebulization 1.25 mg (3 mL) inhalation Q4H PRN bronchospasm #90 mL 12/10/21 [Rx Confirmed 11/01/22] amlodipine 5 mg tablet 5 mg PO DAILY bp 01/23/22 [History Confirmed 11/01/22] fluticasone propionate 50 mcg/actuation nasal spray,suspension 1 spray intranasal DAILY health maintenance 01/23/22 [History Confirmed 11/01/22] sodium chloride 1,000 mg soluble tablet 3 g PO BID #60 tabs 01/25/22 [Rx Confirmed 11/01/22] nystatin 100,000 unit/mL oral suspension 1 ml PO Q6H 02/14/22 [History Confirmed 11/01/22] silver sulfadiazine 1 % topical cream 1 applic topical BID skin peeling #85 grams 03/27/22 [Rx Confirmed 11/01/22] guaifenesin 100 mg/5 mL oral liquid 200 mg (10 mL) PO Q4H PRN congestion #473 mL 04/30/22 [Rx Confirmed 11/01/22] oxycodone 5 mg tablet 5 mg PO BID PRN 05/23/22 [History Confirmed 11/01/22] pentoxifylline 400 mg tablet,extended release 400 mg PO TID radiation fibrosis #90 tabs 07/31/22 [Rx Confirmed 11/01/22] vitamin E mixed 1,000 unit capsule 1,000 unit PO DAILY radiation fibrosis #30 caps 07/31/22 [Rx Confirmed 11/01/22] [facility] Medical History Acid reflux Anemia Cancer related pain Cellulitis Difficulty swallowing Encounter for chemotherapy management Epigastric pain Hypertension malignant squamous cell carcinoma lt neck Mass of left side of neck peg tube removed Regional lymph node metastasis present Sleep disturbance 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 Thrush, oral Home Medications Levothyroxine 125 mcg PO DAILY thyroid 08/25/20 [History Last Taken Unknown] albuterol sulfate 1.25 mg/3 mL solution for nebulization 1.25 mg (3 mL) inhalation Q4H PRN bronchospasm #90 mL 12/10/21 [Rx Last Taken Unknown] amlodipine 5 mg tablet 5 mg PO DAILY bp 01/23/22 [History Last Taken Unknown] fluticasone propionate 50 mcg/actuation nasal spray,suspension 1 spray intranasal DAILY health maintenance 01/23/22 [History Last Taken Unknown] sodium chloride 1,000 mg soluble tablet 3 g PO BID #60 tabs 01/25/22 [Rx Last Taken Unknown] nystatin 100,000 unit/mL oral suspension 1 ml PO Q6H 02/14/22 [History Last Taken Unknown] silver sulfadiazine 1 % topical cream 1 applic topical BID skin peeling #85 grams 03/27/22 [Rx Last Taken Unknown] guaifenesin 100 mg/5 mL oral liquid 200 mg (10 mL) PO Q4H PRN congestion #473 mL 04/30/22 [Rx Last Taken Unknown] oxycodone 5 mg tablet 5 mg PO BID PRN 05/23/22 [History Last Taken Unknown] pentoxifylline 400 mg tablet,extended release 400 mg PO TID radiation fibrosis #90 tabs 07/31/22 [Rx Last Taken Unknown] vitamin E mixed 1,000 unit capsule 1,000 unit PO DAILY radiation fibrosis #30 caps 07/31/22 [Rx Last Taken Unknown] Allergy/AdvReac Type Severity Reaction Status Date / Time No Known Allergies Allergy Verified 11/01/22 09:32 Family History Mother CVA (cerebral vascular accident) Surgical History history of biopsy neck History of removal of Port-a-Cath Hx of tonsillectomy S/P percutaneous endoscopic gastrostomy (PEG) tube placement ( 01/26/19) s/p port placement ( 01/26/19) Social History Smoking Status: Former smoker quit date: 09/16/21 Tobacco: How many years used: 30 how long ago did patient quit smokin-4 months ago second hand exposure: Yes alcohol intake: former details: August 2021 substance use type: does not use seatbelt use: sometimes do you feel safe at home: Yes Diagnosis: My Jama is a 62-year-old male diagnosed with 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 From 02/10/2019 ??? 03/25/2019 he received definitive chemoradiation therapy consisting of 6996 cGy in 33 fractions with concurrent high dose cisplatin. 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 From 12/20/2021 ??? 02/06/2022 he received reirradiation with concurrent chemotherapy. History of Present Illness: 04/28/2018: Patient underwent EGD due to odynophagia. This demonstrated significant esophagitis in the distal esophagus measuring 1-2 cm in length. Biopsy was obtained. Duodenum and stomach appeared normal. Pathology demonstrated focal changes suggestive of reflux. 12/15/2018: Patient presented to with a left-sided lump involving his neck which was firm and nontender. This lesion was present for about 3-4 weeks. 12/17/2018: CT neck and chest was completed. There are a few small scattered pulmonary nodules present with the largest in the right upper lobe anterior segment measuring 5 mm with solid features and smooth margins. Recommended to have follow-up low-dose chest CT in 1 year for pulmonary nodule surveillance. There is a rim-enhancing centrally cystic mass distal to the angle of the mandible lateral to the hyoid cartilage along the anterior margin of the sternocleidomastoid muscle with wall thickness up to 4.9 mm. Process measures approximately 1.8 cm craniocaudal and 2 1.8 cm transverse and 2.9 cm AP. Posteriorly and deep to the SCM there is a 1.2 x 1.6 cm mildly enlarged lymph node and a few additional shotty lymph nodes present on the left. No evidence of cervical adenopathy on the right. Pharyngeal and laryngeal soft tissues appear normal. 12/22/2018: Ultrasound-guided FNA of the left neck mass was completed and pathology demonstrated malignant cells consistent with keratinizing squamous cell carcinoma with extensive necrosis, p16 negative. 12/31/2018: Evaluation by medical oncology. Recommended ENT evaluation with panendoscopy and PET/CT for staging. 01/02/2019: Patient was evaluated by ENT. On exam he was noted to have a large fixed left cervical radha conglomerate. Also noted was a 1 cm cystic lesion of the uvula. Otherwise oral and oropharyngeal mucosa were normal. Flexible laryngoscopy was performed which demonstrated no evidence of lesion. Small cystic lesion of the uvula was felt to be benign. 01/05/2019: PET scan was performed which demonstrated 2 separate nodular foci of increased glucose metabolism manifest in the left lateral neck level 3 generating a calculated maximum SUV of 8.6 with the larger soft tissue density demonstrating central photopenia in the largest corresponding lesion measured on CT is 2.8 cm x 3.5 cm. There is asymmetric increased FDG distribution defined in the left pharyngeal mucosal space generating a calculated maximum SUV of 3.4 with a maximum axial diameter of corresponding metabolic abnormality measuring 1.9 cm. There is no evidence of metastatic disease identified. Recommendation is to closely clinically evaluate the left pharyngeal area lesion for primary disease. 01/08/2019: Patient underwent dental extraction of numbers 7 through 13 and #14. 01/13/2019: Patient underwent dental extraction of #6 and 2 through 5, he also completed amalgam fillings of #21 through 22 and 28. Following this procedure he was confirmed to be cleared for radiation therapy. 01/26/2019: Patient underwent placement of PEG tube and port. 01/30/2019: Patient completed left tonsil excision and uvula excision. Pathology displayed no evidence of malignancy or high-grade squamous dysplasia. There was noted to be submucosal dilated minor salivary gland duct with oncocytic metaplasia in the uvula. From 02/10/2019 ??? 03/25/2019: Received 6996 cGy delivered to gross disease involving the left neck, 5940 cGy to the high risk mucosal sites (entire oropharynx) and high risk lymph node sites (left levels 2-5), and 5412 cGy delivered to the low risk mucosal sites (nasopharynx, larynx, hypopharynx) bilateral high level 2, bilateral supraclavicular fossa, and right neck levels 2-5). Treatment was completed using dose painting IMRT and a single VMAT plan and he received concurrent chemotherapy with high dose cisplatin (cycle 1: 02/10, cycle 2: 03/02, cycle 3: 03/23). 05/13/2019: CT chest was performed. In comparison to the study in November 2018 there is persistent multifocal nodular pleural thickening or tiny pleural-based nodules in the lower lobes which are unchanged in size or number since the previous study. This measures 4 mm. 06/26/2019: Patient underwent swallow study and then had discussion with speech therapy. Recommendations are for a mechanical soft textured and thin liquid diet. Exercises and other strategies were recommended and speech therapy will continue to follow-up. 06/29/2019: PET scan was performed which demonstrated no definitive quantitative scintigraphic evidence of recurrent/metastatic viable neoplasm, overall when compared to the prior PET scan dated 01/05/2019 there is currently an absence of defined viable neoplastic disease with interval resolution of the primary defined hypermetabolic foci. 07/16/2019: Follow up with medical oncology. Plan for surveillance CT chest in 3 months to reassess nonspecific lung nodules. 03/30/2020: swallow study was performed. Recommendations are for regular/soft textured and thin liquid diet. 12/31/2019: Follow up with ENT. NPL showed no evidence of disease, epiglottic and arytenoid edema present. 04/06/2020: CT chest was performed and demonstrated bilateral pulmonary nodules which are stable since the prior exam. No other evidence of disease is identified. 09/02/2020: CT chest with contrast was performed. This demonstrated severely emphysematous lungs bilaterally with multiple scattered stable small nodules. No evidence of metastatic disease identified. 01/25/2021: Patient had removal of the remaining teeth lower teeth 21???28. Patient was treated with antibiotics for slowly healing fibrotic tissue. Patient is also being treated with Trental/vitamin E. 02/27/2021: CT chest was completed. This demonstrated stable findings including small scattered noncalcified nodules seen in both lungs. 08/23/2021: CT soft tissue neck with contrast was performed. This demonstrated evidence of bony destruction involving the mid anterior aspect of the mandible. The transverse dimension of the destruction measures 2.1 cm. There appears to be a 2.6 x 3.7 cm soft tissue mass overlying the anterior aspect of the midportion of the mandible, should rule out neoplastic process. No other abnormalities are appreciated. 10/11/2021: PET scan was performed. This demonstrated heterogeneous increased FDG distribution defined in the anterior midline mandible extending into the periosseous soft tissue anteriorly with a calculated max of SUV of 12 maximum diameter of 5.1 x 5.5 cm. No other quantitatively significant hypermetabolic abnormalities are noted. 11/07/2021: Patient underwent direct laryngoscopy, flexible bronchoscopy, flexible esophagoscopy, PEG tube placement, tracheostomy, composite resection of oral cavity, excision of skin and soft tissue measuring 8 x 9 cm, segmental mandibulectomy, right selective neck dissection of levels 1 through 4 and left neck exploration for vessels. Reconstruction was thigh free flap and had complex neck closure with split thickness skin graft. 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 There was skin invasion present. LVSI not identified. PNI present and focal. Right posterior floor of mouth mucosal margin is involved by invasive carcinoma, left posterior floor of mouth margin is involved by high-grade dysplasia/in situ disease. Right skin soft tissue margin is less than 1 mm, right oral soft tissue margin is 1.5 mm, posterior soft tissue margin is 2.5-3 mm. 3 lymph nodes were involved 2 involving the right level 1 and 1 involving the right level 4, largest deposit was 3 mm and no DEREK was noted. 11/09/2021. Postoperative course was complicated by arterial clotting and taken back to the OR for arterial release, flap checks were stable following the takeback. From 12/20/2021 ??? 02/06/2022: received reirradiation with weekly carboplatin consisting of 6600 cGy delivered to the area concerning for close/positive margin and 5940 cGy delivered to the flap based reconstruction and right neck levels 1 through 4. 07/24/2022: CT soft tissue neck with contrast was performed.??? This demonstrated that he is status post resection of the destructive mass lesion in the interim and portion of the mandible with bony destruction with diffuse edematous changes and skin thickening in the cervical region.??? No new adenopathy or concerning findings are noted. 07/24/2022: CT chest with contrast was performed.??? This demonstrated hyperinflation and mild degree of emphysematous changes within the lungs.??? There is a stable 5.4 mm noncalcified nodule in the lateral aspect of the right upper lobe and no pleural thickening in this area.??? No other lesions or adenopathy is noted. 06/18/2022: Patient was evaluated by ENT.??? Patient had persistence small open wound of the anterior neck skin which is stable.??? He may require further surgery for closure, recommended against HBO. Radiation Treatment History: 1) From 02/10/2019 ??? 03/25/2019: Received 6996 cGy delivered to gross disease involving the left neck, 5940 cGy to the high risk mucosal sites (entire oropharynx) and high risk lymph node sites (left levels 2-5), and 5412 cGy delivered to the low risk mucosal sites (nasopharynx, larynx, hypopharynx) bilateral high level 2, bilateral supraclavicular fossa, and right neck levels 2-5). Treatment was completed using dose painting IMRT and a single VMAT plan and he received concurrent chemotherapy with high dose cisplatin (cycle 1: 02/10, cycle 2: 03/02, cycle 3: 03/23). 2) From 12/20/2021 ??? 02/06/2022: received reirradiation with weekly carboplatin consisting of 6600 cGy delivered to the area concerning for close/positive margin and 5940 cGy delivered to the flap based reconstruction and right neck levels 1 through 4. Interval History: Patient presents for routine follow-up approximately 9 months after completing reirradiation to the head and neck. He reports doing fairly well overall. He does have mild pain in the jaw/mouth which is managed by pain management, this pain has progressively improved. He continues to have healing issues with a very slow healing wound at the inferior extent of the flap reconstruction, he is being managed by the wound clinic and this has recently improved with some new skin formation, he was recently on antibiotics. He never started trental/vitamin E. He is taking most nutrition by mouth with occasional supplement by PEG, he eats soft/pureed food by mouth and weight has stayed stable. He continues to work with speech therapy on swallowing and exercises. Reports an occasional cough with swallowing but infrequent. He has persistent dry mouth which is his most notable daily symptom. Denies dry mouth or taste changes. He also does report some discomfort at the tracheostomy site but reports no difficulty with managing the trach, he does want to get the trach out whenever he can. He denies cough, shortness of breath, chest pain. He reports full arm range of motion and does not have any numbness or weakness. He can complete all ADLs without much difficulty and denies having other problems or concerns at this time. Review of Systems: A 12-point review of systems was completed and was negative except for what is noted in the HPI/Interval History and by the nurse. Physical Exam: Weight: 127 lbs (weight at end of treatment 02/06/2022: 126 lbs 9 oz) ECO KARNOFSKY SCORE: 70% CONSTITUTIONAL: Well-developed, well-nourished, and in no apparent distress. HEENT: Mucous membranes mostly moist. No evidence of thrush or lesions within the visualized oropharynx or oral cavity. Edentulous. No trismus. There is flap based reconstruction of the floor of mouth and anterior jaw/mandible as well as skin, there is one area of slow healing/open sore measuring about 1-2 x 1-2 cm at the inferior left area of the flap abutting the neck, lips swollen. Pupils are equal, round, and reactive to light and accommodation. Extraocular movements are intact. Sclerae are anicteric. NECK: Supple, no thyromegaly, and non-tender. Tracheostomy midline. No cervical or supraclavicular adenopathy noted. No neck erythema. Fibrosis involving the left neck. CARDIAC: Regular rate and rhythm. Normal S1, S2. No murmurs, rubs, or gallops. PULMONARY/CHEST: Lungs are clear to auscultation and percussion bilaterally. No wheezes, rhonchi, or crackles noted. No increased work of breathing. ABDOMINAL: Abdomen soft, non-tender, non-distended. No hepatomegaly. Normoactive bowel sounds in all four quadrants. No guarding, rebound. PEG tube in place without abnormality BACK: Straight and aligned. No CVA tenderness. Axial skeleton non-tender to percussion. EXTREMITIES: Full range of motion in all four extremities. No evidence of edema. NEUROLOGICAL EXAM: Alert and oriented x 3. Answers questions and follows commands appropriately. Cranial nerves II through XII are grossly intact. No focal neurological deficit. Speech is fluent. Muscle strength is 5/5 in all muscle groups. Gait and posture without abnormality. PSYCHIATRIC: Appropriate mood and affect for the clinical situation. 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 From 02/10/2019 ??? 03/25/2019 he received definitive chemoradiation therapy consisting of 6996 cGy in 33 fractions with concurrent high dose cisplatin. 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 From 12/20/2021 ??? 02/06/2022 he received reirradiation with concurrent chemotherapy. Plan: Patient returns for follow-up approximately 9 months after completing reirradiation with concurrent carboplatin for head and neck cancer. There is no evidence of disease on exam and CT neck/chest from 07/24/2022 showed no evidence of concerning findings, planning repeat CTs at 1 year post-XRT. He has continued to improve from his initial posttreatment evaluation. Healing of the neck has improved some, very slow healing, no evidence of infection. Did not try trental/vit E prescribed at the last visit. Plan to continue wound clinic management, with recent improvement there is optimism this area could heal without further surgery. He does have severe residual skin fibrosis. Palliative care to continue any pain control needs. Mucinex liquid for thick clear mucus. Continue advancing diet and continue close follow-up with speech therapy, plans to hold off on PEG use and maintain weight PO in an effort to get PEG out in a few months. He will continue to see ENT regularly and I will have him return for routine follow-up in 3 months and he was instructed to call with any further questions or concerns in the interim. Thank you for allowing me to participate in the management and care of your patient. If I may answer any questions in the interim, please do not hesitate to contact me at any time. Santiago Sellers DO, MS Environmental Services Floor Tech, Department of Radiation Oncology [facility] Coding Level of Care Code Off vis,est,level 3 Diagnoses Floor of mouth squamous cell carcinoma C04.9 11/01/22 1006 <Electronically signed by Santiago Sellers DO> Date Santiago Sellers DO Cosigner Signature: Date (if applicable) CC: BOOTH CLEANERLulu Gonzalez; MD Sadie Agustin [facility] Work Phone: Start: 08-06-2022 Thyrotropin [Units/volume] in Serum or Plasma Rachel Brooks MD Work Phone: Start: 07-31-2022 End: 07-31-2022 Procedure Note: See Note; NOTES: [facility] [address] [place] [id number] OFFICE VISIT Date of Service: 07/31/22903 MR#: [id number] Acct: [id number] Name: MY JAMA Rep #: [id number] : 1960 From: Santiago Sellers DO Age/Sex: 62/M [place] [facility] Status: Signed Intake Vital Signs 04/30/22 09:03 05/23/22 11:35 07/31/22 09:10 07/31/22 09:11 Height 5 ft 4 in 5 ft 4 in 5 ft 4 in 5 ft 4 in Weight: 129 lb 4 oz BMI 22.1 BP 113/65 Blood Pressure Location Rt brachial Position Sitting Respiration 16 Pulse 88 Pulse Source Monitor Temp 97.9 F Temperature Source Temporal Artery Pulse Oximetry (%) 98 Oxygen Delivery Method room air Intake Visit Reasons: 3 mon f/u H/N Chief Complaint: Recurrent head and neck cancer Is patient in pain?: No Allergies No Known Allergies Allergy (Verified 07/31/22 09:09) Medications Levothyroxine 125 mcg PO DAILY thyroid 08/25/20 [History Confirmed 07/31/22] pentoxifylline 400 mg tablet,extended release 400 mg PO TID radiation fibrosis #90 tabs 05/17/21 [Rx Confirmed 07/31/22] vitamin E mixed 1,000 unit capsule 1,000 unit PO DAILY radiation fibrosis #30 caps 05/17/21 [Rx Confirmed 07/31/22] albuterol sulfate 1.25 mg/3 mL solution for nebulization 1.25 mg (3 mL) inhalation Q4H PRN bronchospasm #90 mL 12/10/21 [Rx Confirmed 07/31/22] amlodipine 5 mg tablet 5 mg PO DAILY bp 01/23/22 [History Confirmed 07/31/22] fluticasone propionate 50 mcg/actuation nasal spray,suspension 1 spray intranasal DAILY health maintenance 01/23/22 [History Confirmed 07/31/22] sodium chloride 1,000 mg soluble tablet 3 g PO BID #60 tabs 01/25/22 [Rx Confirmed 07/31/22] nystatin 100,000 unit/mL oral suspension 1 ml PO Q6H 02/14/22 [History Confirmed 07/31/22] silver sulfadiazine 1 % topical cream 1 applic topical BID skin peeling #85 grams 03/27/22 [Rx Confirmed 07/31/22] guaifenesin 100 mg/5 mL oral liquid 200 mg (10 mL) PO Q4H PRN congestion #473 mL 04/30/22 [Rx Confirmed 07/31/22] oxycodone 5 mg tablet 5 mg PO BID PRN 05/23/22 [History Confirmed 07/31/22] PFSH PFSH Medical History Acid reflux Anemia Cancer related pain Cellulitis Difficulty swallowing Encounter for chemotherapy management Epigastric pain Hypertension malignant squamous cell carcinoma lt neck Mass of left side of neck peg tube removed Regional lymph node metastasis present Sleep disturbance 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 Thrush, oral Home Medications Levothyroxine 125 mcg PO DAILY thyroid 08/25/20 [History Last Taken Unknown] pentoxifylline 400 mg tablet,extended release 400 mg PO TID radiation fibrosis #90 tabs 05/17/21 [Rx Last Taken Unknown] vitamin E mixed 1,000 unit capsule 1,000 unit PO DAILY radiation fibrosis #30 caps 05/17/21 [Rx Last Taken Unknown] albuterol sulfate 1.25 mg/3 mL solution for nebulization 1.25 mg (3 mL) inhalation Q4H PRN bronchospasm #90 mL 12/10/21 [Rx Last Taken Unknown] amlodipine 5 mg tablet 5 mg PO DAILY bp 01/23/22 [History Last Taken Unknown] fluticasone propionate 50 mcg/actuation nasal spray,suspension 1 spray intranasal DAILY health maintenance 01/23/22 [History Last Taken Unknown] sodium chloride 1,000 mg soluble tablet 3 g PO BID #60 tabs 01/25/22 [Rx Last Taken Unknown] nystatin 100,000 unit/mL oral suspension 1 ml PO Q6H 02/14/22 [History Last Taken Unknown] silver sulfadiazine 1 % topical cream 1 applic topical BID skin peeling #85 grams 03/27/22 [Rx Last Taken Unknown] guaifenesin 100 mg/5 mL oral liquid 200 mg (10 mL) PO Q4H PRN congestion #473 mL 04/30/22 [Rx Last Taken Unknown] oxycodone 5 mg tablet 5 mg PO BID PRN 05/23/22 [History Last Taken Unknown] Allergy/AdvReac Type Severity Reaction Status Date / Time No Known Allergies Allergy Verified 07/31/22 09:09 Family History Mother CVA (cerebral vascular accident) Surgical History history of biopsy neck History of removal of Port-a-Cath Hx of tonsillectomy S/P percutaneous endoscopic gastrostomy (PEG) tube placement ( 01/26/19) s/p port placement ( 01/26/19) Social History Smoking Status: Former smoker quit date: 09/16/21 Tobacco: How many years used: 30 how long ago did patient quit smokin-4 months ago second hand exposure: Yes alcohol intake: former details: August 2021 substance use type: does not use seatbelt use: sometimes do you feel safe at home: Yes Diagnosis: My Jama is a 62-year-old male diagnosed with 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 From 02/10/2019 ??? 03/25/2019 he received definitive chemoradiation therapy consisting of 6996 cGy in 33 fractions with concurrent high dose cisplatin. 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 From 12/20/2021 ??? 02/06/2022 he received reirradiation with concurrent chemotherapy. History of Present Illness: 04/28/2018: Patient underwent EGD due to odynophagia. This demonstrated significant esophagitis in the distal esophagus measuring 1-2 cm in length. Biopsy was obtained. Duodenum and stomach appeared normal. Pathology demonstrated focal changes suggestive of reflux. 12/15/2018: Patient presented to with a left-sided lump involving his neck which was firm and nontender. This lesion was present for about 3-4 weeks. 12/17/2018: CT neck and chest was completed. There are a few small scattered pulmonary nodules present with the largest in the right upper lobe anterior segment measuring 5 mm with solid features and smooth margins. Recommended to have follow-up low-dose chest CT in 1 year for pulmonary nodule surveillance. There is a rim-enhancing centrally cystic mass distal to the angle of the mandible lateral to the hyoid cartilage along the anterior margin of the sternocleidomastoid muscle with wall thickness up to 4.9 mm. Process measures approximately 1.8 cm craniocaudal and 2 1.8 cm transverse and 2.9 cm AP. Posteriorly and deep to the SCM there is a 1.2 x 1.6 cm mildly enlarged lymph node and a few additional shotty lymph nodes present on the left. No evidence of cervical adenopathy on the right. Pharyngeal and laryngeal soft tissues appear normal. 12/22/2018: Ultrasound-guided FNA of the left neck mass was completed and pathology demonstrated malignant cells consistent with keratinizing squamous cell carcinoma with extensive necrosis, p16 negative. 12/31/2018: Evaluation by medical oncology. Recommended ENT evaluation with panendoscopy and PET/CT for staging. 01/02/2019: Patient was evaluated by ENT. On exam he was noted to have a large fixed left cervical radha conglomerate. Also noted was a 1 cm cystic lesion of the uvula. Otherwise oral and oropharyngeal mucosa were normal. Flexible laryngoscopy was performed which demonstrated no evidence of lesion. Small cystic lesion of the uvula was felt to be benign. 01/05/2019: PET scan was performed which demonstrated 2 separate nodular foci of increased glucose metabolism manifest in the left lateral neck level 3 generating a calculated maximum SUV of 8.6 with the larger soft tissue density demonstrating central photopenia in the largest corresponding lesion measured on CT is 2.8 cm x 3.5 cm. There is asymmetric increased FDG distribution defined in the left pharyngeal mucosal space generating a calculated maximum SUV of 3.4 with a maximum axial diameter of corresponding metabolic abnormality measuring 1.9 cm. There is no evidence of metastatic disease identified. Recommendation is to closely clinically evaluate the left pharyngeal area lesion for primary disease. 01/08/2019: Patient underwent dental extraction of numbers 7 through 13 and #14. 01/13/2019: Patient underwent dental extraction of #6 and 2 through 5, he also completed amalgam fillings of #21 through 22 and 28. Following this procedure he was confirmed to be cleared for radiation therapy. 01/26/2019: Patient underwent placement of PEG tube and port. 01/30/2019: Patient completed left tonsil excision and uvula excision. Pathology displayed no evidence of malignancy or high-grade squamous dysplasia. There was noted to be submucosal dilated minor salivary gland duct with oncocytic metaplasia in the uvula. From 02/10/2019 ??? 03/25/2019: Received 6996 cGy delivered to gross disease involving the left neck, 5940 cGy to the high risk mucosal sites (entire oropharynx) and high risk lymph node sites (left levels 2-5), and 5412 cGy delivered to the low risk mucosal sites (nasopharynx, larynx, hypopharynx) bilateral high level 2, bilateral supraclavicular fossa, and right neck levels 2-5). Treatment was completed using dose painting IMRT and a single VMAT plan and he received concurrent chemotherapy with high dose cisplatin (cycle 1: 02/10, cycle 2: 03/02, cycle 3: 03/23). 05/13/2019: CT chest was performed. In comparison to the study in November 2018 there is persistent multifocal nodular pleural thickening or tiny pleural-based nodules in the lower lobes which are unchanged in size or number since the previous study. This measures 4 mm. 06/26/2019: Patient underwent swallow study and then had discussion with speech therapy. Recommendations are for a mechanical soft textured and thin liquid diet. Exercises and other strategies were recommended and speech therapy will continue to follow-up. 06/29/2019: PET scan was performed which demonstrated no definitive quantitative scintigraphic evidence of recurrent/metastatic viable neoplasm, overall when compared to the prior PET scan dated 01/05/2019 there is currently an absence of defined viable neoplastic disease with interval resolution of the primary defined hypermetabolic foci. 07/16/2019: Follow up with medical oncology. Plan for surveillance CT chest in 3 months to reassess nonspecific lung nodules. 03/30/2020: swallow study was performed. Recommendations are for regular/soft textured and thin liquid diet. 12/31/2019: Follow up with ENT. NPL showed no evidence of disease, epiglottic and arytenoid edema present. 04/06/2020: CT chest was performed and demonstrated bilateral pulmonary nodules which are stable since the prior exam. No other evidence of disease is identified. 09/02/2020: CT chest with contrast was performed. This demonstrated severely emphysematous lungs bilaterally with multiple scattered stable small nodules. No evidence of metastatic disease identified. 01/25/2021: Patient had removal of the remaining teeth lower teeth 21???28. Patient was treated with antibiotics for slowly healing fibrotic tissue. Patient is also being treated with Trental/vitamin E. 02/27/2021: CT chest was completed. This demonstrated stable findings including small scattered noncalcified nodules seen in both lungs. 08/23/2021: CT soft tissue neck with contrast was performed. This demonstrated evidence of bony destruction involving the mid anterior aspect of the mandible. The transverse dimension of the destruction measures 2.1 cm. There appears to be a 2.6 x 3.7 cm soft tissue mass overlying the anterior aspect of the midportion of the mandible, should rule out neoplastic process. No other abnormalities are appreciated. 10/11/2021: PET scan was performed. This demonstrated heterogeneous increased FDG distribution defined in the anterior midline mandible extending into the periosseous soft tissue anteriorly with a calculated max of SUV of 12 maximum diameter of 5.1 x 5.5 cm. No other quantitatively significant hypermetabolic abnormalities are noted. 11/07/2021: Patient underwent direct laryngoscopy, flexible bronchoscopy, flexible esophagoscopy, PEG tube placement, tracheostomy, composite resection of oral cavity, excision of skin and soft tissue measuring 8 x 9 cm, segmental mandibulectomy, right selective neck dissection of levels 1 through 4 and left neck exploration for vessels. Reconstruction was thigh free flap and had complex neck closure with split thickness skin graft. 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 There was skin invasion present. LVSI not identified. PNI present and focal. Right posterior floor of mouth mucosal margin is involved by invasive carcinoma, left posterior floor of mouth margin is involved by high-grade dysplasia/in situ disease. Right skin soft tissue margin is less than 1 mm, right oral soft tissue margin is 1.5 mm, posterior soft tissue margin is 2.5-3 mm. 3 lymph nodes were involved 2 involving the right level 1 and 1 involving the right level 4, largest deposit was 3 mm and no DEREK was noted. 11/09/2021. Postoperative course was complicated by arterial clotting and taken back to the OR for arterial release, flap checks were stable following the takeback. From 12/20/2021 ??? 02/06/2022: received reirradiation with weekly carboplatin consisting of 6600 cGy delivered to the area concerning for close/positive margin and 5940 cGy delivered to the flap based reconstruction and right neck levels 1 through 4. 07/24/2022: CT soft tissue neck with contrast was performed.??? This demonstrated that he is status post resection of the destructive mass lesion in the interim and portion of the mandible with bony destruction with diffuse edematous changes and skin thickening in the cervical region.??? No new adenopathy or concerning findings are noted. 07/24/2022: CT chest with contrast was performed.??? This demonstrated hyperinflation and mild degree of emphysematous changes within the lungs.??? There is a stable 5.4 mm noncalcified nodule in the lateral aspect of the right upper lobe and no pleural thickening in this area.??? No other lesions or adenopathy is noted. Radiation Treatment History: 1) From 02/10/2019 ??? 03/25/2019: Received 6996 cGy delivered to gross disease involving the left neck, 5940 cGy to the high risk mucosal sites (entire oropharynx) and high risk lymph node sites (left levels 2-5), and 5412 cGy delivered to the low risk mucosal sites (nasopharynx, larynx, hypopharynx) bilateral high level 2, bilateral supraclavicular fossa, and right neck levels 2-5). Treatment was completed using dose painting IMRT and a single VMAT plan and he received concurrent chemotherapy with high dose cisplatin (cycle 1: 02/10, cycle 2: 03/02, cycle 3: 03/23). 2) From 12/20/2021 ??? 02/06/2022: received reirradiation with weekly carboplatin consisting of 6600 cGy delivered to the area concerning for close/positive margin and 5940 cGy delivered to the flap based reconstruction and right neck levels 1 through 4. Interval History: Patient presents for routine follow-up approximately 6 months after completing reirradiation to the head and neck. He reports doing fairly well overall. He denies having current pain in his jaw or mouth. He continues to have healing issues with a very slow healing wound at the inferior extent of the flap reconstruction, he is being managed by the wound clinic and this remains stable. He is currently taking antibiotics for this and changing his dressings daily, he does not report an odorous discharge or bleeding. He is taking most nutrition by PEG, he eats some soft food and water PO. He continues to work with speech therapy on swallowing and exercises. His weight has remained stable. He denies dry mouth or taste changes. He also does report some discomfort at the tracheostomy site but reports no difficulty with managing the trach, he does want to get the trach out whenever he can. He denies cough, shortness of breath, chest pain. He reports full arm range of motion and does not have any numbness or weakness. He can complete all ADLs without much difficulty and denies having other problems or concerns at this time. Review of Systems: A 12-point review of systems was completed and was negative except for what is noted in the HPI/Interval History and by the nurse. Physical Exam: Weight: 129 lbs 4 oz (weight at end of treatment 02/06/2022: 126 lbs 9 oz) ECO KARNOFSKY SCORE: 70% CONSTITUTIONAL: Well-developed, well-nourished, and in no apparent distress. HEENT: Mucous membranes moist. No evidence of thrush or lesions within the visualized oropharynx or oral cavity. Edentulous. No trismus. There is flap based reconstruction of the floor of mouth and anterior jaw/mandible as well as skin, there is one area of slow healing/open sore measuring about 2x2 cm at the inferior left area of the flap abutting the neck, lips swollen. Pupils are equal, round, and reactive to light and accommodation. Extraocular movements are intact. Sclerae are anicteric. NECK: Supple, no thyromegaly, and non-tender. Tracheostomy midline. No cervical or supraclavicular adenopathy noted. No neck erythema. Fibrosis involving the left neck. CARDIAC: Regular rate and rhythm. Normal S1, S2. No murmurs, rubs, or gallops. PULMONARY/CHEST: Lungs are clear to auscultation and percussion bilaterally. No wheezes, rhonchi, or crackles noted. No increased work of breathing. ABDOMINAL: Abdomen soft, non-tender, non-distended. No hepatomegaly. Normoactive bowel sounds in all four quadrants. No guarding, rebound. PEG tube in place without abnormality BACK: Straight and aligned. No CVA tenderness. Axial skeleton non-tender to percussion. EXTREMITIES: Full range of motion in all four extremities. No evidence of edema. NEUROLOGICAL EXAM: Alert and oriented x 3. Answers questions and follows commands appropriately. Cranial nerves II through XII are grossly intact. No focal neurological deficit. Speech is fluent. Muscle strength is 5/5 in all muscle groups. Gait and posture without abnormality. PSYCHIATRIC: Appropriate mood and affect for the clinical situation. 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 From 02/10/2019 ??? 03/25/2019 he received definitive chemoradiation therapy consisting of 6996 cGy in 33 fractions with concurrent high dose cisplatin. 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 From 12/20/2021 ??? 02/06/2022 he received reirradiation with concurrent chemotherapy. Plan: Patient returns for follow-up approximately 6 months after completing reirradiation with concurrent carboplatin for head and neck cancer. There is no evidence of disease on exam and CT neck/chest from 07/24/2022 showed no evidence of concerning findings. He has continued to improve from his initial posttreatment evaluation. He does still have very slow wound healing of an open area at the inferior portion of his flap, this was present prior to radiation and he has been treated with antibiotics (and currently on antibiotics), currently being managed by the wound clinic, this area remains is stable. Planning to try trental/vit E. Otherwise skin erythema has resolved and he has severe neck fibrosis. Palliative care to continue any pain control needs. Mucinex liquid for thick clear mucus. Continue advancing diet and continue close follow-up with speech therapy. He will continue to see ENT regularly and I will have him return for routine follow-up in 3 months and he was instructed to call with any further questions or concerns in the interim. Thank you for allowing me to participate in the management and care of your patient. If I may answer any questions in the interim, please do not hesitate to contact me at any time. Santiago Sellers DO, MS Environmental Services Floor Tech, Department of Radiation Oncology [facility] Coding Level of Care Code Off vis,est,level 3 Diagnoses Floor of mouth squamous cell carcinoma C04.9 07/31/22 1000 <Electronically signed by Santiago Sellers DO> Date Santiago Verito DO Cosigner Signature: Date (if applicable) CC: BOOTH CLEANER-C Kya Gonzalez; MD Corinne Agustinjaydon Santiago FISH CLEANER Work Phone: Start: 07-24-2022 CT of soft tissues of neck with contrast BOOTH CLEANER-C Kya Gonzalez BOOTH CLEANER Work Phone: Start: 07-24-2022 CT of thorax with contrast BOOTH CLEANER-C Kya Gonzalez BOOTH CLEANER Work Phone: Start: 07-24-2022 End: 07-25-2022 Procedure Note: See Note; NOTES: [facility] Imaging Services [address] [place] [address] Chest WITH Contrast MR#: [id number] Acct: [id number] Name: MY JAMA Rep #: [id number] : 1960 M 62 From: Bib ghosh MD PCP: YARI Pardo Status: REG CLI Study: Chest WITH Contrast Date of Exam: 07/24/22 Exam# [id number] Ordering Dr: Quincy Simpson MD STUDY: CT CHEST WITH CONTRAST REASON FOR EXAM: Male, 62 years old. F/U RECURRENT HEAD AND NECK CANCER RADIATION DOSAGE (If Supplied By Facility): CTDIvol = ( 10.71 ) mGy, DLP = ( 559.49 ) mGycm TECHNIQUE: Transaxial imaging was performed following intravenous administration of IV 100mL Isovue-300. Multiplanar coronal and sagittal images were reformatted. Individualized dose optimization techniques were used for this CT. COMPARISON: Comparison is made with prior study 02/27/2021. FINDINGS: CHEST A tracheostomy tube is in situ. Hyperinflation. Mild degree of emphysematous changes with scarring in the anterior aspect of the right lung apex. Stable 5.4 mm noncalcified nodule in the lateral aspect of the right upper lobe as seen on axial image #77 and coronal image #89. There is no demonstrated pleural abnormality. Normal heart and pericardium. Normal mediastinum. Normal hilar regions. Normal unenhanced pulmonary arteries. Normal aorta arch and descending thoracic aorta. There are multi-level degenerative changes of the thoracic spine. Increased kyphosis. There is no demonstrated abnormality of the visualized upper abdomen. CT/Chest WITH Contrast IMPRESSION: Hyperinflation and mild degree of the emphysematous changes. There has been no change. Electronically Signed: Bib Reeves MD at 13:10 EDT Reading Location ID and State: [address] [place] [address] , Service support , CC: YARI Gonzalez; Dr. Quincy Simpson MD Wood Router Hand: Signed Sadie Jack ORNELAS Work Phone: Start: 07-24-2022 End: 07-24-2022 Procedure Note: See Note; NOTES: [facility] Imaging Services [address] [place] [address] Soft Tissue Neck WITH Contrast MR#: [id number] Acct: [id number] Name: MY JAMA Rep #: [id number] : 1960 M 62 From: Bib ghosh MD PCP: YARI Pardo Status: REG CLI Study: Soft Tissue Neck WITH Contrast Date of Exam: 09/23/21 Exam# [id number] Ordering Dr: Quincy Simpson MD STUDY: CT SOFT TISSUE NECK WITH CONTRAST REASON FOR EXAM: Male, 62 years old. F/U RECURRENT HEAD AND NECK CANCER RADIATION DOSAGE (If Supplied By Facility): CTDIvol = ( 10.71 ) mGy, DLP = ( 559.49 ) mGycm TECHNIQUE: The patient was scanned in a multi-detector CT scanner. High resolution transaxial imaging was performed following intravenous administration of IV 100mL Isovue-300. Sagittal and coronal images were reconstructed. Individualized dose optimization techniques were used for this CT. COMPARISON: Comparison is made with prior study dated 08/23/2021. FINDINGS: A tracheostomy tube is seen within the trachea. There is diffuse skin thickening with increased markings in the subcutaneous tissues involving the facial region as well as the cervical region bilaterally. Since prior study, the patient underwent surgical fusion of the anterior aspect of the mandible using plate and screw fixation device as well as a bone graft. The previously seen destructive lesion at that site has been resected. Multiple surgical clips are seen in the submandibular region. Normal bilateral parotid glands. Normal bilateral wireless sales associate spaces. Normal bilateral parapharyngeal spaces. Normal bilateral carotid spaces. Normal bilateral sublingual and submandibular glands and spaces. Normal visualized nasopharynx. Normal retropharyngeal space. Normal perivertebral space. Normal visualized bilateral faucial tonsils. The visualized tongue, tongue base and oropharynx are normal. The visualized cervical lymph nodes (levels I-) are within normal size limits, and maintain normal morphology. There is no demonstrated solid or cystic mass lesion. There is no abnormal contrast enhancement. Normal epiglottis, bilateral vallecula and hypopharynx. The pre-epiglottic and paraglottic adipose spaces are normal. Normal visualized bilateral piriform sinuses, aryepiglottic folds, vocal cords, and arytenoid-cricoid articulations. Normal subglottic trachea. Normal bilateral lobes of the thyroid gland. Normal visualized pulmonary apices. Partial opacification of the maxillary sinuses bilaterally. There is multilevel degenerative changes of the cervical spine. CT/Soft Tissue Neck WITH Contrast IMPRESSION: Status post resection of the destructive mass lesion in the anterior midportion of the mandible with bony destruction. Diffuse edematous changes with skin thickening of the visualized cervical region. Electronically Signed: Bib Reeves MD at 15:31 EDT , CC: YARI Gonzalez; Dr. Quincy Simpson MD Wood Router Hand: Signed Sadie Santiago JOHNSON Work Phone: Start: 07-10-2022 End: 07-10-2022 Procedure Note: See Note; NOTES: [facility] [address] [place] [address] H P Exam - Wound Care 07/10/22 1242 MR#: [id number] Acct: [id number] Name: MY JAMA Rep #: [id number] : 1960 62 From: Maurice Spaulding MD PCP: YARI Pardo Status:REG RCR Location: History of Present Illness Date of Service: 07/10/22 Chief Complaint: 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 He received courses of chemotherapy followed by radiation treatments, which were concluded by the end of 2017. He recently underwent oral surgery and had 8 teeth extracted. Two extraction sites have failed to heal. On November 07, 2021, the patient underwent reconstruction of the jaw using bone from his left lower leg. 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 [facility] Medical History (Updated 07/10/22 @ 13:[address] 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 Thrush, oral Home Medications Levothyroxine 125 mcg PO DAILY thyroid 08/25/20 [History Last Taken Unknown] pentoxifylline 400 mg tablet,extended release 400 mg PO TID radiation fibrosis #90 tabs 05/17/21 [Rx Last Taken Unknown] vitamin E mixed 1,000 unit capsule 1,000 unit PO DAILY radiation fibrosis #30 caps 05/17/21 [Rx Last Taken Unknown] albuterol sulfate 1.25 mg/3 mL solution for nebulization 1.25 mg (3 mL) inhalation Q4H PRN bronchospasm #90 mL 03/20/22 [Rx Last Taken Unknown] amlodipine 5 mg tablet 5 mg PO DAILY bp 01/23/22 [History Last Taken Unknown] fluticasone propionate 50 mcg/actuation nasal spray,suspension 1 spray intranasal DAILY health maintenance 01/23/22 [History Last Taken Unknown] sodium chloride 1,000 mg soluble tablet 3 g PO BID #60 tabs 01/25/22 [Rx Last Taken Unknown] nystatin 100,000 unit/mL oral suspension 1 ml PO Q6H 02/14/22 [History Last Taken Unknown] silver sulfadiazine 1 % topical cream 1 applic topical BID skin peeling #85 grams 03/27/22 [Rx Last Taken Unknown] guaifenesin 100 mg/5 mL oral liquid 200 mg (10 mL) PO Q4H PRN congestion #473 mL 04/30/22 [Rx Last Taken Unknown] oxycodone 5 mg tablet 5 mg PO BID PRN 05/23/22 [History Last Taken Unknown] Allergy/AdvReac Type Severity Reaction Status Date / Time No Known Allergies Allergy Verified 04/30/22 09:01 Family History Mother CVA (cerebral vascular accident) Surgical History history of biopsy neck History of removal of Port-a-Cath Hx of tonsillectomy S/P percutaneous endoscopic gastrostomy (PEG) tube placement ( 01/26/19) s/p port placement ( 01/26/19) Social History Smoking Status: Former smoker quit date: 09/16/21 Tobacco: How many years used: 30 how long ago did patient quit smokin-4 months ago second hand exposure: Yes alcohol intake: former details: August 2021 substance use type: does not use seatbelt use: sometimes do you feel safe at home: Yes Vital Signs Vital Signs Vital Signs: 07/10/22 08:41 Temperature Source Temporal Blood Pressure Source Monitor Blood Pressure Position Semi-Fowlers Blood Pressure Location Right Arm Weight Weight: 130 lb Body Mass Index (BMI) 22.3 Physical Exam Const alert, oriented x3, no apparent distress and well nourished General Appearance: cooperative, comfortable and well developed Orientation / Consciousness: awake, oriented to person, oriented to place and oriented to time HEENT normocephalic and head/scalp atraumatic Head and Scalp: normal to inspection, normocephalic and atraumatic External Ear: external ears normal Throat: other Other Details: A tracheostomy tube is noted to be in place. Eyes PERRL and EOMs intact bilaterally General Eye: normal appearance of both eyes Resp normal respiratory effort, normal air movement, no retractions and no use of accessory muscles Extremity no calf tenderness General Extremity: Negative for clubbing or cyanosis Skin Wound Narrative: A large open wound is noted in the left submandibular area. Dimensions are documented elsewhere. There is a large amount of necrotic and nonviable tissue at the base of the wound. There is also a disagreeable odor. A nearby tracheostomy tube is noted in the midline. Swab cultures have been obtained, for both aerobic and anaerobic bacterial growth. Neuro oriented x3, CN's II-XII intact bilaterally and moves all extremities Sensorium / Orientation: awake, alert, oriented to person, oriented to place and oriented to time Psych Appearance: grossly normal and appropriate Attitude: calm Activity / Motor Behavior: appropriate eye contact Speech: normal speech Mood Affect: euthymic mood Thought Process: normal thought process Thought Content: normal thought content Attention / Concentration: attention grossly intact Debridement Note Debridement Note Wound debrided: Post-surgical left submandibular wound Laterality: Left Type of Debridement: Excisional debridement Anesthesia Used: 5% Lidocaine Gel Depth: Down to and including healthy tissue and in the subcutaneous layer Percentage of wound debrided: 100 Instrument Used: 5mm curette Tissue Removed: Frankly necrotic, nonviable tissue Severity: Fat Layer Exposed Amount of bleeding with debridement: Mild Bleeding Controlled with: Compression and gauze Patient tolerated procedure: Patient tolerated procedure well Debridement Free Text: Because of the amount of necrotic and nonviable tissue, as well as disagreeable odor, swab cultures were obtained for aerobic and anaerobic bacterial growth. Post-Debridement Measurements and Additional Note: Post-Debridement Measurements/Treatment DHAVAL - Nurse 1 - General Ulcer Assessment Start: 06/27/22 08:32 Freq: Status: Active Protocol: BRANDAN Activity Type Activity Date Activity User E-sign Co-sign Detail Recorded Client Recorded Date Recorded By Document 06/27/22 08:32 [id number] 06/27/22 08:38 KR Document 07/04/22 08:19 PL [id number] 07/04/22 08:21 PL Document 07/10/22 08:41 KR [id number] 07/10/22 08:45 KR 06/27/22 07/04/22 07/10/22 08:32 08:19 08:41 WC - Today's Visit Information Type of service Follow-up Visit Follow-up Visit Follow-up Visit (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 (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 (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 ) ) ) Arrival Mode Ambulatory Ambulatory Ambulatory Transfer Assistance None Patient Identification Verified (Name Yes Yes Yes ) Patient Requires Transmission-Based No Precautions Safety Precautions NA Height and Weight Body Mass Index (BMI) 22.3 22.3 22.3 BMI Classification Normal Normal Normal Vital Signs Temperature (97.8 F-99.1 F) 97.6 F L 98.6 F Temperature Source Temporal Temporal Temporal Pulse Rate (60-100) 69 71 Pulse Location Monitor Monitor Respiratory Rate (12-18) 18 Blood Pressure (90/60-120/80) 131/60 H 132/62 H Blood Pressure Mean 83 85 Source Monitor Monitor Position Sitting Semi-Fowlers Blood Pressure Location Left Arm Right Arm History Since Last Visit- (Skip if this is Patient's initial visit) Have you changed medications since your No No No last visit? Any new allergies or adverse reactions No No No Had a fall/change in ADL's that may No No No increase risk of falls Signs or symptoms of abuse and/or No No No neglect since last visit Have you been in the hospital since your No No No last visit? Has dressing in place as prescribed Yes Yes Yes Has compression in place as prescribed N/A N/A Has offloadiing in place as prescribed N/A N/A Experienced any changes in pain level or No No management Left Footwear Regular Shoe Regular Shoe Right Footwear Regular Shoe Regular Shoe Pain Scale: 0-10 Numeric Is Patient Pain Free? Yes Yes Yes - Nurse 1 - General Ulcer Measurement Start: 06/27/22 08:32 Freq: Status: Active Protocol: Activity Type Activity Date Activity User E-sign Co-sign Detail Recorded Client Recorded Date Recorded By Document 06/27/22 08:32 VIC [id number] 06/27/22 08:38 KR Document 07/10/22 08:41 KR [id number] 07/10/22 08:45 KR 06/27/22 07/10/22 08:32 08:41 Wound Center Nurse 1 #2- L LAT LE -Current Size (cm) - Length 0.1 -Current Size (cm) - Width 0.1 -Current Size (cm) - Depth 0.1 -Total Square Cm 0.01 -Exudate Amt Medium -Exudate Type Serosanguineous -Wound Margin Distinct, Outline Attached -Granulation Amt Medium (34-66%) -Granulation Quality [place] -Necrosis Amt Small (1-33%) -Necrotic Tissue Type Adherent Slough -Texture (Candace-wound Skin Appearance) Assessed, Scarring -Moisture (Candace-wound Skin Appearance) No Abnormality, Assessed -Color (Candace-wound Skin Appearance) Assessed,Not Assessed -Temperature (Candace-wound Skin No Abnormality Appearance) (Pt Warm) -Tenderness on Palpation (Candace-wound No Skin Appearance) -Ulcer Cleansing Soap and Water -Foul Odor after Cleansing No -Anesthetic Used 5% Lidocaine Gel #1 Chin -Current Size (cm) - Length 3 2.4 -Current Size (cm) - Width 4.2 1.1 -Current Size (cm) - Depth 0.4 0.2 -Total Square Cm 12.6 2.64 -Photo Taken Yes -Exudate Amt Medium Medium -Exudate Type Serosanguineous Serosanguineous -Wound Margin Distinct, Distinct, Outline Outline Attached Attached -Granulation Amt Medium (34-66%) None Present (0 %) -Granulation Quality [place] -Necrosis Amt Medium (34-66%) Large (67-100%) -Necrotic Tissue Type Adherent Slough Adherent Slough -Structure Exposed N/A -Texture (Candace-wound Skin Appearance) Assessed, Localized Edema Scarring ,Scarring -Moisture (Candace-wound Skin Appearance) No Abnormality, No Abnormality Assessed -Color (Candace-wound Skin Appearance) No Abnormality, No Abnormality, Assessed Assessed, Erythema -Temperature (Candace-wound Skin No Abnormality No Abnormality Appearance) (Pt Warm) (Pt Warm) -Tenderness on Palpation (Candace-wound No No Skin Appearance) -Ulcer Cleansing Soap and Water Soap and Water -Foul Odor after Cleansing No No -Anesthetic Used 5% Lidocaine 5% Lidocaine Gel Gel WC - Nurse 2 - General Ulcer CM Notes Start: 06/27/22 08:32 Freq: Status: Active Protocol: Activity Type Activity Date Activity User E-sign Co-sign Detail Recorded Client Recorded Date Recorded By Document 06/27/22 08:44 MW [id number] 06/27/22 08:50 MW Document 07/04/22 08:45 MW [id number] 07/04/22 08:49 MW Document 07/10/22 10:59 PL [id number] 07/10/22 10:59 PL 06/27/22 07/04/22 07/10/22 08:44 08:45 10:59 Wound Center Nurse 2 #2- L LAT LE -Time 08:50 -Correct Patient Yes -Correct Side, Site, Position Yes -Correct Procedure Yes -Procedure Performed No -Post Debridement (cm) - Length 0 -Post Debridement (cm) - Width 0 -Post Debridement (cm) - Depth 0 -Total Square (Post) (cm) 0 -Wound/Ulcer Outcome Healed- Epithelialized #1 Chin -Time 08:44 08:47 08:46 -Correct Patient Yes Yes Yes -Correct Side, Site, Position Yes Yes Yes -Correct Procedure Yes Yes Yes -Procedure Performed Yes No Yes -Type of Procedure Incision Debridement Drainage -Clinical Debridement Subcutaneous Subcutaneous -Tissue Removed Subcutaneous Subcutaneous -Post Debridement (cm) - Length 3.0 2.4 -Post Debridement (cm) - Width 3.0 1.1 -Post Debridement (cm) - Depth 0.5 0.2 -Total Square (Post) (cm) 9.00 2.64 -Area of Debridement (cm) - Length 3.0 2.4 -Area of Debridement (cm) - Width 3.0 1.1 -Total Square (Area) (cm) 9.00 2.64 -Tunneling No No No -Undermining/Tunneling No No No -Circular Undermining No No No -Wound/Ulcer Outcome Not Healed Not Healed Healed- Surgical Closure -Ulcer Cleansing Rinsed/ Irrigated with Saline -Foul Odor after Cleansing No No -Bioengineered Tissue No No -Bleeding Controlled with Pressure Pressure -Treatment Response Procedure Procedure Tolerated Well Tolerated Well -Offloading No -Debridement - Subq, 1st 20sq cm Yes Yes Pain Scale: 0-10 Numeric Is Patient Pain Free? Yes Yes Yes - Nurse 3 - General Ulcer D/C NN Start: 06/27/22 08:32 Freq: Status: Active Protocol: Activity Type Activity Date Activity User E-sign Co-sign Detail Recorded Client Recorded Date Recorded By Document 06/27/22 09:01 MW [id number] 06/27/22 09:02 MW Document 07/04/22 08:55 PL [id number] 07/04/22 08:56 PL Document 07/10/22 09:14 KR [id number] 07/10/22 09:14 KR 06/27/22 07/04/22 07/10/22 09:01 08:55 09:14 Wound Care Nurse 3 #1 Chin -Ulcer Cleansing Not Cleansed Not Cleansed Rinsed/ Irrigated with Saline -Foul Odor after Cleansing No -Negative Pressure Wound Therapy N/A -Primary Dressing Applied Aquacel Extra Aquacel Extra C Hydrogel ($) -Primary Dressing Covered/Secured with Dry Gauze, Dry Gauze, Dry Gauze, Secured with Secured with Secured with Tape Tape Tape -Aquacel Extra 2 1 Treatment Response Procedure Tolerated Well Pain Scale: 0-10 Numeric Is Patient Pain Free? Yes Yes Yes Teaching: Wound Center Dressing Your Wound -Person Taught Patient,Family -Teaching Method Discussion, Demonstration -Response to teaching Verbalize understanding WC - Visit Discharge Discharge Condition Stable Stable Stable Ambulatory Status Ambulatory Ambulatory Ambulatory Transportation Private Auto Private Auto Private Auto Accompanied by daughter daughter Medication Reconcilliation completed No provided to patient/care provider Clinical Summary of Care Provided Yes Assessment/Plan Assessment/Plan (1) Head and neck cancer: CODE(S): C76.0 - Malignant neoplasm of head, face and neck PLAN: Rinsed the TheraSkin to left jaw area and reapplied wound veil and Aquacel extra over top and then regular dressing. Patient is to leave dressing on for 1 week we will follow-up next Saturday. (2) Delayed surgical wound healing: CODE(S): T81.89XA - Other complications of procedures, not elsewhere classified, initial encounter QUALIFIERS: Encounter type: initial encounter Qualified Code(s): T81.89XA - Other complications of procedures, not elsewhere classified, initial encounter (3) Nonhealing surgical wound: CODE(S): T81.89XA - Other complications of procedures, not elsewhere classified, initial encounter QUALIFIERS: Encounter type: initial encounter Qualified Code(s): T81.89XA - Other complications of procedures, not elsewhere classified, initial encounter (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 PLAN: Plan This is a 62-year-old male with history of throat cancer who has undergone previous chemotherapy and radiation therapy treatments. He has undergone extraction of multiple teeth, with several sites which have failed to heal. A definitive excision of the mandible with reconstructive surgery has been performed, and a portion of the surgical site has failed to heal. Upon evaluation today, the open wound, which has recently been treated with 2 applications of a TheraSkin allograft, demonstrates a large amount of necrotic and nonviable tissue, associated with a disagreeable odor. Swab cultures have been obtained for aerobic and anaerobic growth. An excisional debridement has been performed, though necrotic and nonviable tissue remains. Therefore, a transition is to be made to the use of collagenase Santyl, which will be applied topically on a daily basis. The patient has previously utilized collagenase Santyl, and is familiar with its application. Upon topical application of collagenase Santyl, the wound cavity is to be packed with dry sterile gauze. Patient's daughter is to assist the patient in his daily wound management. Patient is to return in 1 week for reevaluation by his regular wound care provider. Patient may, in fact, be a candidate for hyperbaric oxygen therapy, as the chronic, nonhealing wound appears to be in a field which has previously undergone irradiation. Hyperbaric oxygen therapy may be indicated under such circumstances. Total time: 35 minutes 07/10/22 1306 <Electronically signed by Maurice Spaulding MD> Cosigner Signature (if applicable): CC: Signed Sadie Santiago CNP Work Phone: Start: 06-15-2022 End: 06-15-2022 Modified Barium Swallow Study Procedure Note: See Note ; NOTES: [facility] Speech Pathology [address] [place] [address] Modified Barium Swallow Study MR#: [id number] Acct: [id number] Name: MY JAMA Rep #: [id number] : 1960 61 From: Latosha Boyer M.A., 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 Medical History: The pt is a 61-year-old male diagnosed with clinical stage NOREEN (cTx cN2b M0) p16 negative SCC of unknown primary with left neck adenopathy in level 2-[address] neck and chest (12/17/2018), ultrasound-guided FNA of the left neck mass (12/22/2018), PET scan (01/05/2019), triple endoscopy with targeted left tonsillectomy (01/30/2019). From 02/10/2019 ??? 03/25/2019 he received definitive chemoradiation therapy. 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 11/07/2021: PEG tube placement, tracheostomy, composite resection of oral cavity, excision of skin and soft tissue, segmental mandibulectomy, right selective neck dissection and left neck exploration for vessels. Reconstruction was thigh free flap and had complex neck closure with split thickness skin graft. Trach was removed following surgery on 12/05/2021 the trach re-inserted due to difficulty breathing when lying flat. Pt has followed with OP ST during and after radiation treatment. Most recent MBSS 04/13/22 recommended soft and bite size textures / thin liquids with strict aspiration precautions and GI consult. The patient and his daughter since have reported increased coughing with liquids with mucous from trach sometimes containing some of his thin drinks. Additionally, he is only able to consume purees due to increased difficulty swallowing solids. ADVANCED PRACTICE REGISTERED NURSE recommended repeat MBSS to reassess swallow function and aspiration risk due to pt reporting increased s/s of aspiration and difficulty swallowing. Current Diet Ordered: Puree textures / Thin liquids Dentition: Edentulous Mental Status: WNL Respiratory Status: Oxygenating on Room Air - trach - Penetration-Aspiration Scale Penetration-Aspiration Scale: OBJECTIVE ASSESSMENT OF SWALLOW FUNCTION (QUANTITATIVE ??? PER TRIAL): PENETRATION / ASPIRATION SCALE (SENIOR): 1 = does not enter airway 2 = enters airway/above vocal folds/ejected 3 = enters airway/above vocal folds/not ejected 4 = enters airway/contacts vocal folds/ejected 5 = enters airway/contacts vocal folds/not ejected 6 = enters airway/below vocal folds/ejected 7 = enters airway/below vocal folds/not ejected despite effort 8 = enters airway/below vocal folds/no effort VIDEOFLOROSCOPIC SCALE SCORE (SENIOR): Grade I = aspiration of material that has penetrated into the laryngeal vestibule, intact cough reflex Grade II = aspiration < 10 % of the bolus, intact cough reflex Grade III = aspiration of < 10 % of the bolus, reduced cough reflex or aspiration of > 10 % of the bolus, intact cough reflex Grade IV = aspiration of > 10 % of the bolus, reduced cough reflex - Penetration-Aspiration Scale Score Thin Liquid via teaspoon Result: 1= does not enter airway Thin Liquid via teaspoon Trial 2 Result: 1= does not enter airway Thin Liquid via small single sip from cup Result: 1= does not enter airway Thin Liquid via large single sip from cup Result: 5= enters airways/contacts vocal folds/not ejected - Cannot definitively rule out aspiration. Difficult to see below the level of the vocal folds due to patient's body habitus. Delayed coughing was observed with this trial, which was ineffective in clearing trace residues lining the laryngeal vestibule. Oppelo Thick Liquid via small single sip from cup Result: 1= does not enter airway Honey Thick Liquid via small single sip from cup Result: 1= does not enter airway Pudding via teaspoon Result: 1= does not enter airway Thin Liquid via teaspoon Trial 3 Result: 1= does not enter airway Thin Liquid via teaspoon Chin tuck Result: 1= does not enter airway - Oral Phase Labial Seal: Escape progressing to mid-chin Tongue Control During Bolus Hold: Posterior escape of less than half of bolus Bolus Transport/Lingual Motion: Slowed tongue motion Oral Residue: Residue collection on oral structures - Pharyngeal Phase Initiation of Pharyngeal Swallow: Bolus head in pyriforms Soft Palate Elevation: No bolus between soft palate and pharyngeal wall Laryngeal Elevation: Partial superior movement thyroid cart/partial apprx aryt-epig petiole Anterior Hyoid Excursion: No anterior movement Epiglottic Movement: Complete inversion Laryngeal Vestibule Closure at Height of Swallow: Incomplete; narrow column of air/contrast in laryngeal vestibule Pharyngeal Stripping Wave: Absent Pharyngoesophageal Segment Opening: Parital distension and partial duration; parital obstruction of flow Tongue Base Retraction: Wide column of contrast between tongue base post. pharyngeal wall - pudding Pharyngeal Residue: Collection of residue within or on pharyngeal structures - Treatment Strategies Effects of treatment strategies attemped:: Liquid wash = somewhat effective in clearing pudding residue. Multiple swallow = effective in clearing thin and nectar liquids from pharynx, somewhat effective in clearing honey thick and pudding residue. Chin tuck = ineffective. - Diagnosis/Impression Diagnosis: Moderate-severe oropharyngeal phase dysphagia (R13.12) Impression: The oral phase is primarily marked by... -Decreased bolus control with premature posterior loss of <1/2 of thin liquid bolus to the pyriforms prior to swallow onset. Difficult to fully determine swallow onset due to absent anterior hyoid excursion. Swallow onset determined by upward movement of the arytenoid cartilages towards the epiglottic petiole. -Did not assess mastication abilities to due concerns for choking secondary to decrease jaw closure due to edema, as well as difficulty with pharyngeal clearance of thicker viscosities described below. -Trace-mild oral residue, which the patient effectively cleared with use of multiple swallows. The pharyngeal phase is primarily marked by... -Decreased airway closure due to ABSENT anterior hyoid excursion and decreased laryngeal elevation. The patient did achieve full epiglottic inversion during the swallow. -Mild-moderate pharyngeal residues in the vallecula and pyriforms secondary to decreased tongue base retraction, ABSENT pharyngeal stripping wave, and decreased UES opening and duration. He is at increased risk for post prandial aspiration due to extent of pharyngeal residues, which worsened as viscosity increased. Liquid washes and multiple swallows were somewhat effective in clearing pudding residue from the pharynx. -Laryngeal penetration to the vocal folds of large sip of thin liquids by cup, which did not fully eject from the larynx. Reflexive cough did not clear trace liquid residue lining the laryngeal vestibule. No aspiration observed during the study; however, the ADVANCED PRACTICE REGISTERED NURSE could not definitively rule out aspiration of large sip of thin liquids via cup due to pt's body habitus. - Recommendations Diet: Puree Textures - thinned, moist purees (must pass spoon-tilt test), Thin Liquids Comment: [place] Free Water Protocol Compensatory Strategies: Small Bites, Small Sips, Liquid by Teaspoon Only, Slow Rate, Multiple Swallows - 3-5 swallows per bite/sip, Alternate bites/solids and sips/liquids, Sitting upright, Remain sitting upright for 30 minutes after PO intake Supervision: Assist as needed - family to assist pt with cues to follow through with strategies as needed Recommend Repeat Modified Barium Swallow: Yes Comment: Repeat MBS study in 6-12 months to monitor swallow function as the patient is at risk for worsening dysphagia and aspiration risk s/p radiation treatment. Need for Skilled Speech Therapy Services: Yes Comment: Will recommend the patient for continued outpatient dysphagia therapy to address deficits in oropharyngeal swallow function. Will recommend the patient for continued oropharyngeal strengthening to improve tongue base retraction, laryngeal elevation, hyoid excursion, pharyngeal contraction, and duration of UES opening. The patient would benefit from thorough education regarding diet recommendations, [place] Free Water Protocol (ADVANCED PRACTICE REGISTERED NURSE provided pt and daughter handout after MBSS), and recommended compensatory strategies to decrease aspiration risk. Due to healing neck wound beneath L jaw line and on anterior upper L neck, the patient is NOT appropriate for neck ROM exercises or myofascial release to promote improved soft tissue mobility and swallowing mechanism ROM at this time. Education Completed: 1. Described result of evaluation., 4. Family/caregivers understand evaluation agree w/ goals tx plan., 7. Pt requires further education on strategies risks. - Status Active ST Patient: Active - Contact Information [facility] Speech Therapy:: Latosha Boyer M.A. [facility]-ADVANCED PRACTICE REGISTERED NURSE Speech-Language Pathologist [facility] [address] [place] [address] [email or web address] [phone] 06/15/22 14:26 06/15/22 1518 <Electronically signed by Latosha Boyer M.A., CCC-S LP> Date/Time Latosha Boyer M.A. CCC-ADVANCED PRACTICE REGISTERED NURSE Co-Signature Required for all Medicare patients Date/Time Co-Signature CC: Sadie Santiago FISH CLEANER Work Phone: Start: 06-15-2022 Timmy Gonzalez BOOTH CLEANER Work Phone: Start: 05-23-2022 End: 05-23-2022 Oncology Visit Report Procedure Note: See Note; NOTES: [facility] [address] [place] [address] OFFICE VISIT Date of Service: 05/23/22 1126 MR#: [id number] Acct: [id number] Name: MY JAMA Rep #: [id number] : 1960 From: Quincy Simpson MD Age/Sex: 61/M [place] [facility] Status: Signed HPI Subjective Date of Service 05/23/22 Chief Complaint Recurrent head and neck cancer History of Present Illness 61-year-old male Ex-smoker and heavy alcohol user who presented with a painless left neck mass that progressively increased in size over the course of the past couple of months. December 17, 2018 CT soft tissues of the neck: FINDINGS: There is a rim-enhancing centrally cystic mass distal to the angle the mandible, lateral to the hyoid cartilage, along the anterior margin of the sternocleidomastoid muscle. Wall thickness up to 4.9 mm. Process measures approximately 1.8 cm craniocaudal, 1.8 cm transverse, 2.9 cm anterior-posterior. Posteriorly and deep to the sternomastoid muscle, single mildly enlarged lymph node measuring 1.2 x 1.6 cm. A few additional shotty lymph nodes are present on the left. Normal thyroid. Normal submandibular glands and parotid glands. There is no right cervical lymphadenopathy. Pharyngeal and laryngeal soft tissues appear normal. Multilevel cervical spondylosis with disc disease most notable at C5-C6 with uncovertebral joint hypertrophy contributing to mild foraminal narrowing. Mucoperiosteal thickening and mucous retention cysts of the maxillary sinuses. Solitary opacified posterior right ethmoid sinus. Mastoid air cells and middle ear cavities clear. 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 December 17, 2018 CT chest: FINDINGS: Supraclavicular: No acute process within the [id number]. Body wall soft tissues: No acute process. Upper abdomen: No acute process. Osseous structures: No acute process. Mild scoliosis, moderate kyphosis, mild multilevel thoracic spondylosis. Mediastinum: No acute process. Cardiovascular: No acute process. Lungs: A few small scattered pulmonary nodules are present. The largest is in the right upper lobe anterior segment, series 6 image 73, 5 cm, solid features, smooth margins. Unremarkable airways. IMPRESSION: No acute thoracic process is evident. Small pulmonary nodules. The largest measures approximately 5 mm. Follow-up low-dose CT chest is recommended in 1 year for pulmonary nodule surveillance purposes. December 22, 2018 DIAGNOSIS CYTOLOGY A. 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 See comment. B. 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 ANTIBODY / CLONE RESULT Block A AE1-3 (AE1/AE3/PCK26) positive CK7 (OV-TL12/30) negative CK8 (59wglyR58) positive, weak CK20 (KS20.8) negative TTF-1 (8G7G3/1) negative Napsin A (Rabbit Polyclonal) negative HepPar (OCh1E5) negative RCC (PN-15) negative PSAP (PASE/4LJ) negative CK5-6 (D5 1684) positive P16 (E6H4) negative P40 (BC28) positive, focal January 02, 2019: Patient was evaluated by ENT : oral and oropharyngeal mucosa were normal. Flexible laryngoscopy was performed which demonstrated no evidence of lesion. Small cystic lesion of the uvula was felt to be benign. January 05, 2019 PET/CT: IMPRESSION: 1. ABNORMAL EXAMINATION INDICATIVE OF MALIGNANT-VIABLE NEOPLASM. 2. Increased glucose concentration observed in the left lateral neck fulfills quantitative criteria for viable neoplasm. 3. Asymmetric enhanced FDG distribution noted in the left pharyngeal mucosal space may be further investigated with rigorous clinical examination. 4. No other quantitatively significant hypermetabolic abnormalities are noted. There is no definitive scintigraphic evidence of distant metastatic disease. January 30, 2019: left tonsil excision and uvula excision. Pathology displayed no evidence of malignancy or high-grade squamous dysplasia. There was noted to be submucosal dilated minor salivary gland duct with oncocytic metaplasia in the uvula. In preparation for locoregional combined chemoradiation patient Patient underwent multiple dental extractions, placement of PEG tube and port. February 10 through March 25, 2019 combined modality therapy (see below for details) May 13, 2019: CT chest: Comparison is made with prior study in December 17, 2018 There is persistent multifocal nodular pleural thickening or tiny pleural-based nodules in the lower lobes which are unchanged in size or number since previous study. The dominant nodule in the right lower lobe is not changed appreciably in size since prior exam June 29, 2019 PET/CT: IMPRESSION: 1. NEGATIVE EXAMINATION. There is no definitive quantitative scintigraphic evidence of recurrent-metastatic viable neoplasm. 2. There is interval metabolic resolution of the previously identified left lateral neck and left pharyngeal mucosal space hypermetabolic abnormalities. 3. Overall, compared to the prior FDG PET study dated 01/05/19, there is current absence of defined viable neoplastic disease with interval resolution of the prior defined hypermetabolic foci, as articulated above. October 07, 2019 CT chest: IMPRESSION: Normal enhanced CT Chest examination. April 06, 2020 CT chest: IMPRESSION: 1. Bilateral pulmonary nodules, stable in the interval. Appropriate follow-up using Fleischner Society criteria is recommended. 2. Dilatation of the main pulmonary artery measuring up to 3.2 cm in diameter. This may be associated with pulmonary hypertension. 3. Increased thoracic kyphosis. Diffuse endplate spondylosis of the visualized cervical, thoracic, and lumbar spine. No lytic or blastic osseous changes are seen. September 02, 2020 CT chest: FINDINGS: Lungs are severely emphysematous with multiple scattered stable nodules. There is a new small, 3 mm nodule in the anterior segment of the right upper lobe, image 36/136 series #4. Remainder of the nodules are stable since priors and are all less than 5 mm and low risk appearing. Additional 1 -- 2 mm nodules are present and are too small to reliably characterize between the current and prior scan due to differences in technique, inspiration, etc. Central airways are patent. Pleural surfaces are intact. Mediastinal contents are normal. Cardiac chambers are normal in size and shape. Pericardium is normal. Osseous structures are intact with exaggerated lower thoracic kyphosis without osseous lesions. Upper abdominal structures are normal. IMPRESSION: 1. Severe emphysema. 2. Multiple low risk and stable over many nodules. CT chest February 27, 2021 IMPRESSION: Stable examination. Stable emphysematous changes. CT neck August 23, 2021: demonstrated evidence of bony destruction involving the mid anterior aspect of the mandible. The transverse dimension of the destruction measures 2.1 cm. There appears to be a 2.6 x 3.7 cm soft tissue mass overlying the anterior aspect of the midportion of the mandible, should rule out neoplastic process. No other abnormalities are appreciated. PET/CT restaging October 11, 2021: demonstrated heterogeneous increased FDG distribution defined in the anterior midline mandible extending into the periosseous soft tissue anteriorly with a calculated max of SUV of 12 maximum diameter of 5.1 x 5.5 cm. No other quantitatively significant hypermetabolic abnormalities are noted. November 07, 2021 direct laryngoscopy, flexible bronchoscopy, flexible esophagoscopy, PEG tube placement, tracheostomy, composite resection of oral cavity, excision of skin and soft tissue measuring 8 x 9 cm, segmental mandibulectomy, right selective neck dissection of levels 1 through 4 and left neck exploration with reconstruction with thigh free flap and had complex neck closure with split thickness skin graft. 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 There was skin invasion present. LVSI not identified. PNI present and focal. Right posterior floor of mouth mucosal margin is involved by invasive carcinoma, left posterior floor of mouth margin is involved by high-grade dysplasia/in situ disease. Right skin soft tissue margin is less than 1 mm, right oral soft tissue margin is 1.5 mm, posterior soft tissue margin is 2.5-3 mm. 3 lymph nodes were involved 2 involving the right level 1 and 1 involving the right level 4, largest deposit was 3 mm and no DEREK was noted. November 09, 2021 postoperative course was complicated by arterial clotting and taken back to the OR for arterial release, flap checks were stable following the takeback. Treatment summary: First-line: * Combined high-dose cisplatin and radiation January through March 2019: 6996 cGy delivered to gross disease involving the left neck, 5940 cGy to the high risk mucosal sites (entire oropharynx) and high risk lymph node sites (left levels 2-5), and 5412 cGy delivered to the low risk mucosal sites (nasopharynx, larynx, hypopharynx) bilateral high level 2, bilateral supraclavicular fossa, and right neck levels 2-5). The patient did receive concurrent chemotherapy with high dose cisplatin (cycle 1: 02/10, cycle 2: 03/02, cycle 3: 03/23). Date of First Treatment: 02/10/2019 Date of Last Treatment: 03/25/2019 Second line: * November 07, 2021 direct laryngoscopy, flexible bronchoscopy, flexible esophagoscopy, PEG tube placement, tracheostomy, composite resection of oral cavity, excision of skin and soft tissue measuring 8 x 9 cm, segmental mandibulectomy, right selective neck dissection of levels 1 through 4 and left neck exploration with reconstruction with thigh free flap and had complex neck closure with split thickness skin graft. * Adjuvant concurrent chemoradiation with carboplatin AUC 2 (first 5 weeks) with 6600 cGy delivered to the area concerning for close/positive margin and 5940 cGy delivered to the flap based reconstruction and right neck levels 1 through 4. He was treated with a simultaneous integrated boost technique using VMAT planning with 6 MV photons. 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 Thrush, oral Surgical History history of biopsy neck History of removal of Port-a-Cath Hx of tonsillectomy S/P percutaneous endoscopic gastrostomy (PEG) tube placement ( 01/26/19) s/p port placement ( 01/26/19) Family History Mother CVA (cerebral vascular accident) Social History Smoking Status: Former smoker quit date: 09/16/21 Tobacco: How many years used: 30 how long ago did patient quit smokin-4 months ago second hand exposure: Yes alcohol intake: former details: August 2021 substance use type: does not use seatbelt use: sometimes do you feel safe at home: Yes ROS Constitutional Constitutional: Reports systems reviewed and no addt'l complaints, except as documented and other Details: Able to do ADL independently ; Denies anorexia, fatigue, fever(s) or weight loss Eyes Eyes: Reports systems reviewed and no addt'l complaints, except as documented; Denies change in vision ENT HEENT: Reports systems reviewed and no addt'l complaints, except as documented, dry mouth, dysphagia, hearing loss, hoarseness and other Details: Dysphagia is improving and he is advancing diet ; Denies mouth lesions or mouth pain Cardiovascular Cardiovascular: Reports systems reviewed and no addt'l complaints, except as documented; Denies chest pain with activity or edema Respiratory/Chest Respiratory/Chest: Reports systems reviewed and no addt'l complaints, except as documented, cough and other Details: Clear sputum ; Denies dyspnea or hemoptysis Gastrointestinal Gastrointestinal: Reports systems reviewed and no addt'l complaints, except as documented; Denies change in bowel habits, hematochezia or melena Genitourinary Genitourinary: Reports systems reviewed and no addt'l complaints, except as documented; Denies hematuria Musculoskeletal Musculoskeletal: Reports systems reviewed and no addt'l complaints, except as documented; Denies arthralgias Integumentary Integumentary: Reports systems reviewed and no addt'l complaints, except as documented, non-healing lesions and other Details: Chronic wound on the left side of the neck, seeing wound clinic ; Denies rash Neurologic Neurologic: Reports systems reviewed and no addt'l complaints, except as documented; Denies headache(s) Psychiatric Psychiatric: Reports systems reviewed and no addt'l complaints, except as documented Endocrine Endocrinology: Reports systems reviewed and no addt'l complaints, except as documented Hematologic/Lymphatic Hematologic/Lymphatic: Reports systems reviewed and no addt'l complaints, except as documented; Denies easy bleeding, easy bruising or lymphadenopathy Allergic/Immunologic Allergic/Immunologic: Reports systems reviewed and no addt'l complaints, except as documented Intake Vital Signs 02/14/22 10:44 04/30/22 09:03 05/23/22 11:28 Height 5 ft 4 in 5 ft 4 in 5 ft 4 in Intake Accompanied by: Self Is patient in pain?: Yes (neck, intermittent) Pain scale (1-10): 2 Allergies No Known Allergies Allergy (Verified 04/30/22 09:01) Medications Levothyroxine 125 mcg PO DAILY thyroid 08/25/20 [History Confirmed 05/23/22] pentoxifylline 400 mg tablet,extended release 400 mg PO TID radiation fibrosis #90 tabs 05/17/21 [Rx Confirmed 05/23/22] vitamin E mixed 1,000 unit capsule 1,000 unit PO DAILY radiation fibrosis #30 caps 05/17/21 [Rx Confirmed 05/23/22] albuterol sulfate 1.25 mg/3 mL solution for nebulization 1.25 mg (3 mL) inhalation Q4H PRN bronchospasm #90 mL 12/10/21 [Rx Confirmed 05/23/22] amlodipine 5 mg tablet 5 mg PO DAILY bp 01/23/22 [History Confirmed 05/23/22] fluticasone propionate 50 mcg/actuation nasal spray,suspension 1 spray intranasal DAILY health maintenance 01/23/22 [History Confirmed 05/23/22] sodium chloride 1,000 mg soluble tablet 3 g PO BID #60 tabs 01/25/22 [Rx Confirmed 05/23/22] nystatin 100,000 unit/mL oral suspension 1 ml PO Q6H 02/14/22 [History Confirmed 05/23/22] silver sulfadiazine 1 % topical cream 1 applic topical BID skin peeling #85 grams 03/27/22 [Rx Confirmed 05/23/22] guaifenesin 100 mg/5 mL oral liquid 200 mg (10 mL) PO Q4H PRN congestion #473 mL 04/30/22 [Rx Confirmed 05/23/22] oxycodone 5 mg tablet 5 mg PO BID PRN 05/23/22 [History Confirmed 05/23/22] Central Venous Access Central Venous Access: No CBC, CMP May 23, 2022 reviewed in EMR Exam Physical Exam Narrative ECOG 1 Hard of hearing Const alert, oriented x3 and no apparent distress General Appearance: cooperative and comfortable HEENT normocephalic HEENT Narrative: Reconstruction of the lower face, soft tissue edema Mouth: No thrush Eyes General Eye: normal appearance of both eyes Conjunctiva: conjunctiva normal Sclera: sclera normal Neck no lymphadenopathy and no JVD Neck Narrative: Postoperative changes and flap. Wound is covered with surgical dressing General: tracheostomy present Lymph Lymphatic: no lymphadenopathy noted Chest Chest: symmetrical chest wall rise Resp Auscultation: diminished lung sounds bilateral and diffuse Cardio regular rate and regular rhythm Jugular Venous Distention: Negative for JVD GI soft to palpation, non-tender and non-distended; Negative for hepatosplenomegaly GI Narrative: PEG tube no CVA tenderness Back/Spine no thoracic nor lumbar tenderness Extremity General Extremity: Negative for clubbing, cyanosis or edema Skin no rashes or lesions noted Neuro oriented x3, CN's II-XII intact bilaterally and moves all extremities Neuro Narrative: Bilateral symmetric wasting of first interosseous muscles. Coordination / Balance: [id number] test normal Speech: speech abnormal Gait (Neuro): normal gait Psych mental status grossly normal, thought process normal, cooperative and affect normal Coding Level of Care Code Off vis,est,level 4 Exam Problem Focused Diagnoses Head and neck cancer C76.0 Regional lymph node metastasis present C77.9 Lung nodules R91.8 SIADH (syndrome of inappropriate ADH production) E22.2 Assessment and Plan Assessment and Plan (1) Head and neck cancer: Status: Chronic (2) Regional lymph node metastasis present: (3) Lung nodules: Status: Chronic (4) SIADH (syndrome of inappropriate ADH production): Status: Acute Plan 61-year-old male ex-smoker, in addition to excessive alcohol consumption until the diagnosis and start of treatment of 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 Patient is status post tonsillectomies and uveal excision yet no primary identified. Received concomitant chemoradiation January through March 2019 tolerated with expected but no excessive toxicities. He is in complete remission now and is on surveillance with no evidence to suggest cancer recurrence. Residual posttreatment skin hyperpigmentation and induration in the neck area and dry mouth. Indeterminate too small to further characterize lung nodules on initial staging chest CT of November 2018 remains stable for 2 years on imaging through February 2021. 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 Restaging did not suggest systemic disease. October 2021 he underwent radical surgery. Received adjuvant combined modality therapy with radiation and weekly carboplatin chemosensitization November???January. Recovering well from second line treatment, has residual nonhealing wound the left side of the neck (still follows with ENT surgeon and wound clinic), residual dysphagia and dryness. He is slowly advancing oral intake but still partly dependent on tube feeds April 2022. Comorbid conditions: Smoking and excessive alcohol until the time of diagnosis of malignancy. He continued to smoke after the first line of therapy Plan: 1-concluded adjuvant combined modality therapy January 2022 and will continue on surveillance. He is a high risk for both locoregional and systemic recurrence. 2- Diet, continue to slowly advance and follow-up with nutrition and speech pathology. 3. Chronic wound left neck continue to follow-up with surgery and wound clinic 4. Elective imaging, CT soft tissues of the neck and chest July 2022. 5. Follow-up in 6 months, alternating visits between medical oncology and radiation oncology at 3 months intervals. Impression and plan reviewed with patient . Quincy Simpson MD Environmental Services Floor Tech, [facility] Divisions of Medical Oncology Hematology Department of Internal Medicine [place] [phone] This note was generated using a voice recognition system software. Although it was reviewed by the author prior to finalization, it may still contain incorrect words, spelling, and punctuation that were not noted when reviewing prior to saving. If a clinically significant typo or inaccurately typed phrase is noted, please notify the author. 05/23/22 1152 <Electronically signed by Quincy Simpson MD> Date Quincy Simpson MD Cosigner Signature: Date (if applicable) CC: YARI Sunyn Jack [facility] Work Phone: Start: 04-30-2022 End: 04-30-2022 Radiation Oncology Visit Procedure Note: See Note; NOTES: [place] [address] OFFICE VISIT Date of Service: 04/30/22 0857 MR#: [id number] Acct: [id number] Name: MY JAMA Rep #: [id number] : 1960 From: Santiago Sellers DO Age/Sex: 61/M Location: [facility] [place] Status: Signed Intake Vital Signs 03/27/22 09:27 03/28/22 11:02 04/30/22 09:01 04/30/22 09:03 Height 5 ft 4 in 5 ft 4 in 5 ft 4 in 5 ft 4 in Weight: 127 lb 5.001 oz 126 lb 6 oz BMI 21.7 BP 126/69 H Blood Pressure Location Rt brachial Position Sitting Respiration 18 Pulse 74 Pulse Source Monitor Temp 98.0 F Temperature Source Temporal Artery Pulse Oximetry (%) 100 Oxygen Delivery Method room air Intake Visit Reasons: MALIGNANT NEOPLASM OF MANDIBLE/RX HERE Chief Complaint: Recurrent head and neck cancer Is patient in pain?: Yes (neck) Allergies No Known Allergies Allergy (Verified 04/30/22 09:01) Medications Levothyroxine 125 mcg PO DAILY thyroid 08/25/20 [History Confirmed 04/30/22] pentoxifylline 400 mg tablet,extended release 400 mg PO TID radiation fibrosis #90 tabs 05/17/21 [Rx Confirmed 04/30/22] vitamin E mixed 1,000 unit capsule 1,000 unit PO DAILY radiation fibrosis #30 caps 05/17/21 [Rx Confirmed 04/30/22] albuterol sulfate 1.25 mg/3 mL solution for nebulization 1.25 mg (3 mL) inhalation Q4H PRN bronchospasm #90 mL 12/10/21 [Rx Confirmed 04/30/22] amlodipine 5 mg tablet 5 mg PO DAILY bp 01/23/22 [History Confirmed 04/30/22] fluticasone propionate 50 mcg/actuation nasal spray,suspension 1 spray intranasal DAILY health maintenance 01/23/22 [History Confirmed 04/30/22] sodium chloride 1,000 mg soluble tablet 3 g PO BID #60 tabs 01/25/22 [Rx Confirmed 04/30/22] nystatin 100,000 unit/mL oral suspension 1 ml PO Q6H 02/14/22 [History Confirmed 04/30/22] silver sulfadiazine 1 % topical cream 1 applic topical BID skin peeling #85 grams 03/27/22 [Rx Confirmed 04/30/22] guaifenesin 100 mg/5 mL oral liquid 200 mg (10 mL) PO Q4H PRN congestion #473 mL 04/30/22 [Rx Confirmed 04/30/22] PFSH PFSH Medical History Acid reflux Anemia Cancer related pain Cellulitis Difficulty swallowing Encounter for chemotherapy management Epigastric pain Hypertension malignant squamous cell carcinoma lt neck Mass of left side of neck peg tube removed Regional lymph node metastasis present Sleep disturbance 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 Thrush, oral Home Medications Levothyroxine 125 mcg PO DAILY thyroid 08/25/20 [History Last Taken Unknown] pentoxifylline 400 mg tablet,extended release 400 mg PO TID radiation fibrosis #90 tabs 05/17/21 [Rx Last Taken Unknown] vitamin E mixed 1,000 unit capsule 1,000 unit PO DAILY radiation fibrosis #30 caps 05/17/21 [Rx Last Taken Unknown] albuterol sulfate 1.25 mg/3 mL solution for nebulization 1.25 mg (3 mL) inhalation Q4H PRN bronchospasm #90 mL 12/10/21 [Rx Last Taken Unknown] amlodipine 5 mg tablet 5 mg PO DAILY bp 01/23/22 [History Last Taken Unknown] fluticasone propionate 50 mcg/actuation nasal spray,suspension 1 spray intranasal DAILY health maintenance 01/23/22 [History Last Taken Unknown] sodium chloride 1,000 mg soluble tablet 3 g PO BID #60 tabs 01/25/22 [Rx Last Taken Unknown] nystatin 100,000 unit/mL oral suspension 1 ml PO Q6H 02/14/22 [History Last Taken Unknown] silver sulfadiazine 1 % topical cream 1 applic topical BID skin peeling #85 grams 03/27/22 [Rx Last Taken Unknown] guaifenesin 100 mg/5 mL oral liquid 200 mg (10 mL) PO Q4H PRN congestion #473 mL 04/30/22 [Rx Last Taken Unknown] Allergy/AdvReac Type Severity Reaction Status Date / Time No Known Allergies Allergy Verified 04/30/22 09:01 Family History Mother CVA (cerebral vascular accident) Surgical History history of biopsy neck History of removal of Port-a-Cath Hx of tonsillectomy S/P percutaneous endoscopic gastrostomy (PEG) tube placement ( 01/26/19) s/p port placement ( 01/26/19) Social History Smoking Status: Former smoker quit date: 09/16/21 Tobacco: How many years used: 30 how long ago did patient quit smokin-4 months ago second hand exposure: Yes alcohol intake: former details: August 2021 substance use type: does not use seatbelt use: sometimes do you feel safe at home: Yes Diagnosis: My Jama is a 61-year-old male diagnosed with 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 From 02/10/2019 ??? 03/25/2019 he received definitive chemoradiation therapy consisting of 6996 cGy in 33 fractions with concurrent high dose cisplatin. 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 From 12/20/2021 ??? 02/06/2022 he received reirradiation with concurrent chemotherapy. History of Present Illness: 04/28/2018: Patient underwent EGD due to odynophagia. This demonstrated significant esophagitis in the distal esophagus measuring 1-2 cm in length. Biopsy was obtained. Duodenum and stomach appeared normal. Pathology demonstrated focal changes suggestive of reflux. 12/15/2018: Patient presented to with a left-sided lump involving his neck which was firm and nontender. This lesion was present for about 3-4 weeks. 12/17/2018: CT neck and chest was completed. There are a few small scattered pulmonary nodules present with the largest in the right upper lobe anterior segment measuring 5 mm with solid features and smooth margins. Recommended to have follow-up low-dose chest CT in 1 year for pulmonary nodule surveillance. There is a rim-enhancing centrally cystic mass distal to the angle of the mandible lateral to the hyoid cartilage along the anterior margin of the sternocleidomastoid muscle with wall thickness up to 4.9 mm. Process measures approximately 1.8 cm craniocaudal and 2 1.8 cm transverse and 2.9 cm AP. Posteriorly and deep to the SCM there is a 1.2 x 1.6 cm mildly enlarged lymph node and a few additional shotty lymph nodes present on the left. No evidence of cervical adenopathy on the right. Pharyngeal and laryngeal soft tissues appear normal. 12/22/2018: Ultrasound-guided FNA of the left neck mass was completed and pathology demonstrated malignant cells consistent with keratinizing squamous cell carcinoma with extensive necrosis, p16 negative. 12/31/2018: Evaluation by medical oncology. Recommended ENT evaluation with panendoscopy and PET/CT for staging. 01/02/2019: Patient was evaluated by ENT. On exam he was noted to have a large fixed left cervical radha conglomerate. Also noted was a 1 cm cystic lesion of the uvula. Otherwise oral and or opharyngeal mucosa were normal. Flexible laryngoscopy was performed which demonstrated no evidence of lesion. Small cystic lesion of the uvula was felt to be benign. 01/05/2019: PET scan was performed which demonstrated 2 separate nodular foci of increased glucose metabolism manifest in the left lateral neck level 3 generating a calculated maximum SUV of 8.6 with the larger soft tissue density demonstrating central photopenia in the largest corresponding lesion measured on CT is 2.8 cm x 3.5 cm. There is asymmetric increased FDG distribution defined in the left pharyngeal mucosal space generating a calculated maximum SUV of 3.4 with a maximum axial diameter of corresponding metabolic abnormality measuring 1.9 cm. There is no evidence of metastatic disease identified. Recommendation is to closely clinically evaluate the left pharyngeal area lesion for primary disease. 01/08/2019: Patient underwent dental extraction of numbers 7 through 13 and #14. 01/13/2019: Patient underwent dental extraction of #6 and 2 through 5, he also completed amalgam fillings of #21 through 22 and 28. Following this procedure he was confirmed to be cleared for radiation therapy. 01/26/2019: Patient underwent placement of PEG tube and port. 01/30/2019: Patient completed left tonsil excision and uvula excision. Pathology displayed no evidence of malignancy or high-grade squamous dysplasia. There was noted to be submucosal dilated minor salivary gland duct with oncocytic metaplasia in the uvula. From 02/10/2019 ??? 03/25/2019: Received 6996 cGy delivered to gross disease involving the left neck, 5940 cGy to the high risk mucosal sites (entire oropharynx) and high risk lymph node sites (left levels 2-5), and 5412 cGy delivered to the low risk mucosal sites (nasopharynx, larynx, hypopharynx) bilateral high level 2, bilateral supraclavicular fossa, and right neck levels 2-5). Treatment was completed using dose painting IMRT and a single VMAT plan and he received concurrent chemotherapy with high dose cisplatin (cycle 1: 02/10, cycle 2: 03/02, cycle 3: 03/23). 05/13/2019: CT chest was performed. In comparison to the study in November 2018 there is persistent multifocal nodular pleural thickening or tiny pleural-based nodules in the lower lobes which are unchanged in size or number since the previous study. This measures 4 mm. 06/26/2019: Patient underwent swallow study and then had discussion with speech therapy. Recommendations are for a mechanical soft textured and thin liquid diet. Exercises and other strategies were recommended and speech therapy will continue to follow-up. 06/29/2019: PET scan was performed which demonstrated no definitive quantitative scintigraphic evidence of recurrent/metastatic viable neoplasm, overall when compared to the prior PET scan dated 01/05/2019 there is currently an absence of defined viable neoplastic disease with interval resolution of the primary defined hypermetabolic foci. 07/16/2019: Follow up with medical oncology. Plan for surveillance CT chest in 3 months to reassess nonspecific lung nodules. 03/30/2020: swallow study was performed. Recommendations are for regular/soft textured and thin liquid diet. 12/31/2019: Follow up with ENT. NPL showed no evidence of disease, epiglottic and arytenoid edema present. 04/06/2020: CT chest was performed and demonstrated bilateral pulmonary nodules which are stable since the prior exam. No other evidence of disease is identified. 09/02/2020: CT chest with contrast was performed. This demonstrated severely emphysematous lungs bilaterally with multiple scattered stable small nodules. No evidence of metastatic disease identified. 01/25/2021: Patient had removal of the remaining teeth lower teeth 21???28. Patient was treated with antibiotics for slowly healing fibrotic tissue. Patient is also being treated with Trental/vitamin E. 02/27/2021: CT chest was completed. This demonstrated stable findings including small scattered noncalcified nodules seen in both lungs. 08/23/2021: CT soft tissue neck with contrast was performed. This demonstrated evidence of bony destruction involving the mid anterior aspect of the mandible. The transverse dimension of the destruction measures 2.1 cm. There appears to be a 2.6 x 3.7 cm soft tissue mass overlying the anterior aspect of the midportion of the mandible, should rule out neoplastic process. No other abnormalities are appreciated. 10/11/2021: PET scan was performed. This demonstrated heterogeneous increased FDG distribution defined in the anterior midline mandible extending into the periosseous soft tissue anteriorly with a calculated max of SUV of 12 maximum diameter of 5.1 x 5.5 cm. No other quantitatively significant hypermetabolic abnormalities are noted. 11/07/2021: Patient underwent direct laryngoscopy, flexible bronchoscopy, flexible esophagoscopy, PEG tube placement, tracheostomy, composite resection of oral cavity, excision of skin and soft tissue measuring 8 x 9 cm, segmental mandibulectomy, right selective neck dissection of levels 1 through 4 and left neck exploration for vessels. Reconstruction was thigh free flap and had complex neck closure with split thickness skin graft. 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 There was skin invasion present. LVSI not identified. PNI present and focal. Right posterior floor of mouth mucosal margin is involved by invasive carcinoma, left posterior floor of mouth margin is involved by high-grade dysplasia/in situ disease. Right skin soft tissue margin is less than 1 mm, right oral soft tissue margin is 1.5 mm, posterior soft tissue margin is 2.5-3 mm. 3 lymph nodes were involved 2 involving the right level 1 and 1 involving the right level 4, largest deposit was 3 mm and no DEREK was noted. 11/09/2021. Postoperative course was complicated by arterial clotting and taken back to the OR for arterial release, flap checks were stable following the takeback. From 12/20/2021 ??? 02/06/2022: received reirradiation with weekly carboplatin consisting of 6600 cGy delivered to the area concerning for close/positive margin and 5940 cGy delivered to the flap based reconstruction and right neck levels 1 through 4. Radiation Treatment History: 1) From 02/10/2019 ??? 03/25/2019: Received 6996 cGy delivered to gross disease involving the left neck, 5940 cGy to the high risk mucosal sites (entire oropharynx) and high risk lymph node sites (left levels 2-5), and 5412 cGy delivered to the low risk mucosal sites (nasopharynx, larynx, hypopharynx) bilateral high level 2, bilateral supraclavicular fossa, and right neck levels 2-5). Treatment was completed using dose painting IMRT and a single VMAT plan and he received concurrent chemotherapy with high dose cisplatin (cycle 1: 02/10, cycle 2: 03/02, cycle 3: 03/23). 2) From 12/20/2021 ??? 02/06/2022: received reirradiation with weekly carboplatin consisting of 6600 cGy delivered to the area concerning for close/positive margin and 5940 cGy delivered to the flap based reconstruction and right neck levels 1 through 4. Interval History: Patient presents for routine follow-up approximately 12 weeks after completing reirradiation to the head and neck. He reports doing fairly well overall. He reports pain primarily in his jaw which ranges from 2-6/10 and he is taking oxycodone 5 mg twice per day for relief. He continues to have healing issues with a very slow healing wound at the inferior extent of the flap reconstruction, he is being managed by the wound clinic and this remains stable. He is taking most nutrition by PEG, he eats soft food and water PO. He has occasional regurgitation of liquids and is planning to see GI for further evaluation. His weight has remained stable. He denies dry mouth or taste changes. He also does report some discomfort at the tracheostomy site but reports no difficulty with managing the trach. He denies cough, shortness of breath, chest pain. He reports full arm range of motion and does not have any numbness or weakness. He continues to work very closely with speech therapy. He can complete all ADLs without much difficulty and denies having other problems or concerns at this time. Review of Systems: A 12-point review of systems was completed and was negative except for what is noted in the HPI/Interval History and by the nurse. Physical Exam: Weight: 126 lbs 6 oz (weight at end of treatment 02/06/2022: 126 lbs 9 oz) ECO KARNOFSKY SCORE: 70% CONSTITUTIONAL: Well-developed, well-nourished, and in no apparent distress. HEENT: Mucous membranes moist. No evidence of thrush or lesions within the visualized oropharynx or oral cavity. Edentulous. No trismus. There is flap based reconstruction of the floor of mouth and anterior jaw/mandible as well as skin, there is one area of slow healing/open sore at the inferior left area of the flap abutting the neck, lips swollen. Pupils are equal, round, and reactive to light and accommodation. Extraocular movements are intact. Sclerae are anicteric. NECK: Supple, no thyromegaly, and non-tender. Tracheostomy midline. No cervical or supraclavicular adenopathy noted. No neck erythema. Fibrosis involving the left neck. CARDIAC: Regular rate and rhythm. Normal S1, S2. No murmurs, rubs, or gallops. PULMONARY/CHEST: Lungs are clear to auscultation and percussion bilaterally. No wheezes, rhonchi, or crackles noted. No increased work of breathing. ABDOMINAL: Abdomen soft, non-tender, non-distended. No hepatomegaly. Normoactive bowel sounds in all four quadrants. No guarding, rebound. PEG tube in place without abnormality BACK: Straight and aligned. No CVA tenderness. Axial skeleton non-tender to percussion. EXTREMITIES: Full range of motion in all four extremities. No evidence of edema. NEUROLOGICAL EXAM: Alert and oriented x 3. Answers questions and follows commands appropriately. Cranial nerves II through XII are grossly intact. No focal neurological deficit. Speech is fluent. Muscle strength is 5/5 in all muscle groups. Gait and posture without abnormality. PSYCHIATRIC: Appropriate mood and affect for the clinical situation. 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 From 02/10/2019 ??? 03/25/2019 he received definitive chemoradiation therapy consisting of 6996 cGy in 33 fractions with concurrent high dose cisplatin. 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 From 12/20/2021 ??? 02/06/2022 he received reirradiation with concurrent chemotherapy. Plan: Patient returns for follow-up approximately 12 weeks after completing reirradiation with concurrent carboplatin for head and neck cancer. There is no evidence of disease on exam. He has continued to improve from his initial posttreatment evaluation. He does still have very slow wound healing of an open area at the inferior portion of his flap, this was present prior to radiation and he has been treated with antibiotics, currently being managed by the wound clinic, this area remains is stable. Otherwise skin erythema has resolved. Palliative care to assess him and assist with pain control which is chronic at this point. Mucinex liquid for thick clear mucus. Continue advancing diet and continue close follow-up with speech therapy, due to last swallow study will have eval by GI. He will see ENT in two weeks and I will have him return for routine follow-up in 3 months and he was instructed to call with any further questions or concerns in the interim. Thank you for allowing me to participate in the management and care of your patient. If I may answer any questions in the interim, please do not hesitate to contact me at any time. 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 Quincy Simpson MD; MD Sadie Agustin FISH CLEANER Work Phone: Start: 04-25-2022 End: 04-25-2022 Wound Ctr History AND Physical Comments: See Note; NOTES: [facility] [address] [place] [address] H P Exam - Wound Care 04/25/22 0958 MR#: [id number] Acct: [id number] Name: MY JAMA Rep #: [id number] : 1960 61 From: Joya Galvez NP BOOTH CLEANERLulu PCP: YARI Pardo Status:REG RCR Location: History of Present Illness Date of Service: 04/25/22 Chief Complaint: Follow-up open surgical wound from cancer of the jaw. 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 Most recent surgery is November 07, 2021 reconstruction of the jaw using bone from his left lower leg but left the neck area open for healing. 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 Thrush, oral Home Medications Levothyroxine 125 mcg PO DAILY thyroid 08/25/20 [History Last Taken Unknown] pentoxifylline 400 mg tablet,extended release 400 mg PO TID radiation fibrosis #90 tabs 05/17/21 [Rx Last Taken Unknown] vitamin E mixed 1,000 unit capsule 1,000 unit PO DAILY radiation fibrosis #30 caps 05/17/21 [Rx Last Taken Unknown] albuterol sulfate 1.25 mg/3 mL solution for nebulization 1.25 mg (3 mL) inhalation Q4H PRN bronchospasm #90 mL 12/10/21 [Rx Last Taken Unknown] amlodipine 5 mg tablet 5 mg PO DAILY bp 01/23/22 [History Last Taken Unknown] fluticasone propionate 50 mcg/actuation nasal spray,suspension 1 spray intranasal DAILY health maintenance 01/23/22 [History Last Taken Unknown] sodium chloride 1,000 mg soluble tablet 3 g PO BID #60 tabs 01/25/22 [Rx Last Taken Unknown] nystatin 100,000 unit/mL oral suspension 1 ml PO Q6H 02/14/22 [History Last Taken Unknown] oxycodone 5 mg capsule 5 mg PO BID PRN pain 1 month #60 caps 03/27/22 [Rx Last Taken Unknown] silver sulfadiazine 1 % topical cream 1 applic topical BID skin peeling #85 grams 03/27/22 [Rx Last Taken Unknown] Allergy/AdvReac Type Severity Reaction Status Date / Time No Known Allergies Allergy Verified 03/27/22 09:26 Family History Mother CVA (cerebral vascular accident) Surgical History history of biopsy neck History of removal of Port-a-Cath Hx of tonsillectomy S/P percutaneous endoscopic gastrostomy (PEG) tube placement ( 01/26/19) s/p port placement ( 01/26/19) Social History Smoking Status: Former smoker quit date: 09/16/21 Tobacco: How many years used: 30 how long ago did patient quit smokin-4 months ago second hand exposure: Yes alcohol intake: former details: August 2021 substance use type: does not use seatbelt use: sometimes do you feel safe at home: Yes ROS Constitutional Constitutional: Reports systems reviewed and no addt'l complaints, except as documented Eyes Eyes: Reports systems reviewed and no addt'l complaints, except as documented ENT HEENT: Reports systems reviewed and no addt'l complaints, except as documented Cardiovascular Cardiovascular: Reports systems reviewed and no addt'l complaints, except as documented Respiratory/Chest Respiratory/Chest: Reports systems reviewed and no addt'l complaints, except as documented Gastrointestinal Gastrointestinal: Reports systems reviewed and no addt'l complaints, except as documented Genitourinary Genitourinary: Reports systems reviewed and no addt'l complaints, except as documented Musculoskeletal Musculoskeletal: Reports systems reviewed and no addt'l complaints, except as documented Integumentary Integumentary: Reports wounds and other Details: Surgical wound left jaw into neck open with slough Neurologic Neurologic: Reports systems reviewed and no addt'l complaints, except as documented Psychiatric Psychiatric: Reports systems reviewed and no addt'l complaints, except as documented Endocrine Endocrinology: Reports systems reviewed and no addt'l complaints, except as documented Hematologic/Lymphatic Hematologic/Lymphatic: Reports systems reviewed and no addt'l complaints, except as documented Allergic/Immunologic Allergic/Immunologic: Reports systems reviewed and no addt'l complaints, except as documented Vital Signs Vital Signs Vital Signs: 04/25/22 08:55 Temperature 97.0 F L Temperature Source Oral Pulse Rate 78 Blood Pressure 146/66 H Blood Pressure Mean 92 Blood Pressure Source Monitor Blood Pressure Position Semi-Fowlers Blood Pressure Location Right Arm Weight Weight: 130 lb Body Mass Index (BMI) 22.3 Physical Exam Const oriented x3 General Appearance: cooperative Exam Limitations: no limitations HEENT normocephalic Head and Scalp: normal to inspection Face and Sinus: normal facial exam Nose: external nose normal General Ear: hearing grossly impaired External Ear: external ears normal Mouth: oral and palatal mucosa normal Eyes PERRL General Eye: normal appearance of both eyes Neck No full ROM General: normal visual inspection Resp normal respiratory effort Effort and Inspection: able to speak in complete sentences Auscultation: clear to auscultation bilaterally Cardio regular rate and regular rhythm Palpation: normal PMI Rate: regular rate Rhythm: regular rhythm GI Auscultation: normoactive bowel sounds Palpation: soft and no hepatosplenomegaly external exam normal Back/Spine Cervical Spine: cervical ROM normal Thoracic Spine / Upper Back: normal to inspection Lumbar Spine / Lower Back: normal to inspection Extremity normal to inspection General Extremity: normal exam except as noted Skin no rashes or lesions noted Skin Narrative: Surgical wound left jaw and neck. Tracheotomy in place Neuro oriented x3 Psych Appearance: grossly normal Speech: normal speech Thought Content: normal thought content Judgement: judgement good Debridement Note Debridement Note Wound debrided: Left jaw surgical wound Laterality: Left Type of Debridement: Excisional debridement Anesthesia Used: 5% Lidocaine Gel Depth: in the subcutaneous layer Percentage of wound debrided: 100 Instrument Used: 5mm curette Tissue Removed: Slough Severity: Fat Layer Exposed Amount of bleeding with debridement: Mild Bleeding Controlled with: Compression and gauze Patient tolerated procedure: Patient tolerated procedure well Post-Debridement Measurements and Additional Note: Post-Debridement Measurements/Treatment DHAVAL - Nurse 1 - General Ulcer Assessment Start: 04/25/22 08:52 Freq: Status: Active Protocol: BRANDAN Activity Type Activity Date Activity User E-sign Co-sign Detail Recorded Client Recorded Date Recorded By Document 04/25/22 08:55 VIC [id number] 04/25/22 09:04 VIC 04/25/22 08:55 DHAVAL - Today's Visit Information Type of service Initial Visit Arrival Mode Ambulatory Patient Identification Verified (Name Yes ) Height and Weight Body Mass Index (BMI) 22.3 BMI Classification Normal Vital Signs Temperature (97.8 F-99.1 F) 97.0 F L Temperature Source Oral Pulse Rate (60-100) 78 Pulse Location Monitor Blood Pressure (90/60-120/80) 146/66 H Blood Pressure Mean 92 Source Monitor Position Semi-Fowlers Blood Pressure Location Right Arm History Since Last Visit- (Skip if this is Patient's initial visit) Have you changed medications since your No last visit? Any new allergies or adverse reactions No Had a fall/change in ADL's that may No increase risk of falls Signs or symptoms of abuse and/or No neglect since last visit Have you been in the hospital since your No last visit? Has dressing in place as prescribed Yes Has compression in place as prescribed N/A Has offloadiing in place as prescribed N/A Experienced any changes in pain level or No management Left Footwear Regular Shoe Right Footwear Regular Shoe Pain Scale: 0-10 Numeric Is Patient Pain Free? Yes - Nurse 1 - General Ulcer Measurement Start: 04/25/22 08:52 Freq: Status: Active Protocol: Activity Type Activity Date Activity User E-sign Co-sign Detail Recorded Client Recorded Date Recorded By Document 04/25/22 08:55 VIC [id number] 04/25/22 09:04 VIC 04/25/22 08:55 Wound Center Nurse 1 #1 Chin -Current Size (cm) - Length 2.5 -Current Size (cm) - Width 5 -Current Size (cm) - Depth 0.1 -Total Square Cm 12.5 -Exudate Amt Small -Exudate Type Serosanguineous -Wound Margin Distinct, Outline Attached -Granulation Amt Large (67-100%) -Granulation Quality Red -Necrosis Amt None Present (0 %) -Texture (Candace-wound Skin Appearance) Assessed, Scarring -Moisture (Candace-wound Skin Appearance) No Abnormality, Assessed -Color (Candace-wound Skin Appearance) No Abnormality, Assessed -Temperature (Candace-wound Skin No Abnormality Appearance) (Pt Warm) -Tenderness on Palpation (Candace-wound No Skin Appearance) -Ulcer Cleansing Rinsed/ Irrigated with Saline -Foul Odor after Cleansing No -Anesthetic Used 5% Lidocaine Gel WC - Nurse 2 - General Ulcer CM Notes Start: 04/25/22 08:52 Freq: Status: Active Protocol: Activity Type Activity Date Activity User E-sign Co-sign Detail Recorded Client Recorded Date Recorded By Document 04/25/22 09:[address] PL [id number] 04/25/22 09:51 PL 04/25/22 09:49 Wound Center Nurse 2 -Time 09:11 -Correct Patient Yes -Correct Side, Site, Position Yes -Correct Procedure Yes -Procedure Performed Yes -Type of Procedure Debridement -Clinical Debridement Subcutaneous -Tissue Removed Subcutaneous -Post Debridement (cm) - Length 3.0 -Post Debridement (cm) - Width 5.0 -Post Debridement (cm) - Depth 0.1 -Total Square (Post) (cm) 15.00 -Area of Debridement (cm) - Length 3.0 -Area of Debridement (cm) - Width 5.0 -Total Square (Area) (cm) 15.00 -Tunneling No -Undermining/Tunneling No -Circular Undermining No -Wound/Ulcer Outcome Not Healed -Ulcer Cleansing Rinsed/ Irrigated with Saline -Foul Odor after Cleansing No -Bioengineered Tissue No -Bleeding Controlled with Pressure -Treatment Response Procedure Tolerated Well -Debridement - Subq, 1st 20sq cm Yes Pain Scale: 0-10 Numeric Is Patient Pain Free? Yes DHAVAL - Nurse 3 - General Ulcer D/C NN Start: 04/25/22 08:52 Freq: Status: Active Protocol: Activity Type Activity Date Activity User E-sign Co-sign Detail Recorded Client Recorded Date Recorded By Document 04/25/22 09:21 [facility] [id number] 04/25/22 09:23 [facility] 04/25/22 09:21 Wound Care Nurse 3 #1 Chin -Ulcer Cleansing Rinsed/ Irrigated with Saline -Foul Odor after Cleansing No -Primary Dressing Applied Aquacel Extra -Primary Dressing Covered/Secured with Dry Gauze, Secured with Tape -Other Covering DRSG PER [place] DIRECTOR OF VALUATION , PT TO USE SANTYL AT HOME -Aquacel Extra 1 Treatment Response Procedure Tolerated Well Pain Scale: 0-10 Numeric Is Patient Pain Free? Yes WC - Visit Discharge Discharge Condition Stable Transportation Private Auto Assessment/Plan Assessment/Plan (1) Head and neck cancer: CODE(S): C76.0 - Malignant neoplasm of head, face and neck (2) Delayed surgical wound healing: CODE(S): T81.89XA - Other complications of procedures, not elsewhere classified, initial encounter QUALIFIERS: Encounter type: subsequent encounter Qualified Code(s): T81.89XD - Other complications of procedures, not elsewhere classified, subsequent encounter PLAN: Wash area with antibacterial soap apply Santyl nickel thickness to wound base cover with a fluffed moistened 4 x 4 then cover with cushioned gauze 4 x 4's. Dressing is done daily Follow-up in 1 week We will apply for skin substitute 04/25/22 1007 <Electronically signed by Joya Galvez NP [employer] CLE[employer]ER-C> Cosigner Signature (if applicable): CC: Signed Sadie Santiago [facility] Work Phone: Start: 04-13-2022 End: 04-17-2022 Modified Barium Swallow Study Comments: See Note; NOTES: [facility] Speech Pathology [address] [place] [address] Modified Barium Swallow Study MR#: [id number] Acct: [id number] Name: MY JAMA Rep #: [id number] : 1960 61 From: Latosha Boyer M.A. 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 Medical History: The pt is a 61-year-old male diagnosed with clinical stage NOREEN (cTx cN2b M0) p16 negative SCC of unknown primary with left neck adenopathy in level 2-[address] neck and chest (12/17/2018), ultrasound-guided FNA of the left neck mass (12/22/2018), PET scan (01/05/2019), triple endoscopy with targeted left tonsillectomy (01/30/2019). From 02/10/2019 ??? 03/25/2019 he received definitive chemoradiation therapy. 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 11/07/2021: Patient underwent direct laryngoscopy, flexible bronchoscopy, flexible esophagoscopy, PEG tube placement, tracheostomy, composite resection of oral cavity, excision of skin and soft tissue measuring 8 x 9 cm, segmental mandibulectomy, right selective neck dissection of levels 1 through 4 and left neck exploration for vessels. Reconstruction was thigh free flap and had complex neck closure with split thickness skin graft. 12/05/2021: Trach re-inserted due to difficulty breathing when lying flat. 12/20/2021 ??? 02/06/2022 He received reirradiation with weekly carboplatin. He has been following with speech therapy to manage oropharyngeal dysphagia. First MBS study completed 01/08/2022 revealing moderate oropharyngeal phase dysphagia and recommending minced and moist textures / thin liquids with use of aspiration precautions (SEE study for full recommendations). During most recent speech therapy session on 04/10/2022, he presented with coughing during the session with his residues of his beverage being expectorated from his trach. [facility]ANC[facility] [employer]ACT[facility] REGISTERED NURSE recommended repeat MBS study to reassess swallow function and aspiration risk prior to the patient meeting with his surgeon on 04/16/2022 to determine if he can have his PEG tube removed. Current Diet Ordered: Soft solids / Thin liquids Dentition: Edentulous Mental Status: WNL Respiratory Status: Oxygenating on Room Air - trach - Penetration-Aspiration Scale Penetration-Aspiration Scale: OBJECTIVE ASSESSMENT OF SWALLOW FUNCTION (QUANTITATIVE ??? PER TRIAL): PENETRATION / ASPIRATION SCALE (SENIOR): 1 = does not enter airway 2 = enters airway/above vocal folds/ejected 3 = enters airway/above vocal folds/not ejected 4 = enters airway/contacts vocal folds/ejected 5 = enters airway/contacts vocal folds/not ejected 6 = enters airway/below vocal folds/ejected 7 = enters airway/below vocal folds/not ejected despite effort 8 = enters airway/below vocal folds/no effort VIDEOFLOROSCOPIC SCALE SCORE (SENIOR): Grade I = aspiration of material that has penetrated into the laryngeal vestibule, intact cough reflex Grade II = aspiration < 10 % of the bolus, intact cough reflex Grade III = aspiration of < 10 % of the bolus, reduced cough reflex or aspiration of > 10 % of the bolus, intact cough reflex Grade IV = aspiration of > 10 % of the bolus, reduced cough reflex - Penetration-Aspiration Scale Score Thin Liquid via teaspoon Result: 1= does not enter airway Thin Liquid via teaspoon Trial 2 Result: 1= does not enter airway Thin Liquid via small single sip from cup Result: 1= does not enter airway Thin Liquid via sequential sips from cup Result: 3= enters airways/above vocal folds/not ejected Oppelo Thick Liquid via small single sip from cup Result: 1= does not enter airway Honey Thick Liquid via small single sip from cup Result: 1= does not enter airway - Cued the patient for cough and re-swallow to clear the laryngeal vestibule of trace residues from the sequential sips of thin via cup. ADVANCED PRACTICE REGISTERED NURSE recommended placing PMSV and cleaned the valve for the patient via soap, water, and a swab to clear dried residues. Pudding via teaspoon with esophageal screen and thin liquid wash Result: 1= does not enter airway Thin Liquid via single sip from straw Result: 1= does not enter airway - Oral Phase Labial Seal: Escape beyond mid-chin Tongue Control During Bolus Hold: Posterior escape of less than half of bolus Bolus Transport/Lingual Motion: Slowed tongue motion Oral Residue: Residue collection on oral structures - Pharyngeal Phase Initiation of Pharyngeal Swallow: Bolus head in valleculae Soft Palate Elevation: No bolus between soft palate and pharyngeal wall Laryngeal Elevation: Partial superior movement thyroid cart/partial apprx aryt-epig petiole Anterior Hyoid Excursion: No anterior movement Epiglottic Movement: Complete inversion Laryngeal Vestibule Closure at Height of Swallow: Incomplete; narrow column of air/contrast in laryngeal vestibule Pharyngeal Stripping Wave: Present - diminished Pharyngoesophageal Segment Opening: Parital distension and partial duration; parital obstruction of flow Tongue Base Retraction: Narrow column of contrast between tongue base post. pharyngeal wall Pharyngeal Residue: Collection of residue within or on pharyngeal structures - Esophageal Phase Esophageal Clearance: Esophageal retention w/ retrograde flow through pharyngoesophageal seg - Treatment Strategies Effects of treatment strategies attemped:: Decreased bolus rate = Effective. Liquid wash = Little to no impact clearing esophageal retention. - Diagnosis/Impression Diagnosis: Moderate oropharyngeal dysphagia R13.12, Mild esophageal dysphagia R13.14 Impression: Did not assess cookie as it is too hard of a solid for the patient to masticate. The oral phase is marked by... -Slowed tongue motion for A-P transport. -Poor labial seal with frequent anterior loss of liquids. -Decreased mastication abilities. The patient has difficulty with with jaw closure s/p composite resection and reconstruction of the FOM. The pharyngeal phase is marked by... -No visible anterior hyoid excursion and little laryngeal elevation resulting in decreased airway closure during the swallow. He did achieve full epiglottic inversion. -Decreased tongue base retraction, pharyngeal contraction, and UES opening/duration resulting in mild-moderate pharyngeal residue. He benefits from decreased bolus size and multiple swallows to clear the residue. -Laryngeal penetration of sequential sips of thin liquids via cup without full ejection from the laryngeal vestibule. No aspiration observed during the study; however, the patient is at increased risk for aspiration with large bolus sizes and quick rate of intake. The esophageal phase is marked by... -Retention of pudding in UES with retrograde flow to the pyriform sinuses. He is at increased risk to aspirate pharyngeal residue and reflux after the swallow. -Esophageal retention of pudding in the mid esophagus, which did not clear with use of a liquid wash. -Retrograde flow of liquid wash remaining below the UES. - Recommendations Diet: Thin Liquids - Soft and bite size textures (IDDSI Level 6) Comment: Cough and re-swallow if wet vocal quality Compensatory Strategies: Small Bites, Small Sips, Slow Rate - Sips ONE at a time, Multiple Swallows, Sitting upright, Remain sitting upright for 30 minutes after PO intake Recommend Repeat Modified Barium Swallow: Yes - Repeat MBS study in 6-12 months to monitor swallow function as the patient is at risk for worsening dysphagia and aspiration risk s/p radiation treatment. Need for Skilled Speech Therapy Services: Yes Recommended Referrals: GI Consult - Esophageal retention with retrograde flow of tsp of pudding bolus through UES. SEE esophageal impressions and images in PACS. Education Completed: 1. Described result of evaluation., 2. Pt understands evaluation agrees with goals and treatment plan., 7. Pt requires further education on strategies risks. - Status Active ST Patient: Active - Contact Information [facility]:: Latosha Boyer M.A. CCC-ADVANCED PRACTICE REGISTERED NURSE Speech-Language Pathologist [address] [address] [place] [address] [email or web address] [phone] 04/13/22 12:15 04/13/22 1248 <Electronically signed by Latosha Boyer M.A., CCC-S LP> Date/Time Latosha Boyer M.A., CCC-ADVANCED PRACTICE REGISTERED NURSE Co-Signature Required for all Medicare patients Date/Time Co-Signature CC: Sadie Santiago FISH CLEANER Work Phone: Start: 04-13-2022 Timmy Gonzalez BOOTH CLEANER Work Phone: Start: 03-27-2022 End: 03-27-2022 Radiation Oncology Visit Comments: See Note; NOTES: [facility] [place] [address] OFFICE VISIT Date of Service: 03/27/22924 MR#: [id number] Acct: [id number] Name: MY JAMA Rep #: [id number] : 1960 From: Santiago Sellers DO Age/Sex: 61/M Location: [facility] [place] Status: Signed Intake Vital Signs 03/27/22 09:25 03/27/22 09:27 Height 5 ft 4 in 5 ft 4 in Weight: 127 lb 5 oz BMI 21.8 BP 116/69 Blood Pressure Location Rt brachial Position Sitting Respiration 20 H Pulse 78 Pulse Source Monitor Temp 97.9 F Temperature Source Temporal Artery Pulse Oximetry (%) 100 Oxygen Delivery Method room air Intake Visit Reasons: 1 MONTH F/U Chief Complaint: Recurrent head and neck cancer Is patient in pain?: No Allergies No Known Allergies Allergy (Verified 03/27/22 09:26) Medications Levothyroxine 125 mcg PO DAILY thyroid 08/25/20 [History Confirmed 03/27/22] pentoxifylline 400 mg tablet,extended release 400 mg PO TID radiation fibrosis #90 tabs 05/17/21 [Rx Confirmed 03/27/22] vitamin E mixed 1,000 unit capsule 1,000 unit PO DAILY radiation fibrosis #30 caps 05/17/21 [Rx Confirmed 03/27/22] albuterol sulfate 1.25 mg/3 mL solution for nebulization 1.25 mg (3 mL) inhalation Q4H PRN bronchospasm #90 mL 12/10/21 [Rx Confirmed 03/27/22] amlodipine 5 mg tablet 5 mg PO DAILY bp 01/23/22 [History Confirmed 03/27/22] fluticasone propionate 50 mcg/actuation nasal spray,suspension 1 spray intranasal DAILY health maintenance 01/23/22 [History Confirmed 03/27/22] sodium chloride 1,000 mg soluble tablet 3 g PO BID #60 tabs 01/25/22 [Rx Confirmed 03/27/22] nystatin 100,000 unit/mL oral suspension 1 ml PO Q6H 02/14/22 [History Confirmed 03/27/22] oxycodone 5 mg capsule 5 mg PO BID PRN pain 1 month #60 caps 03/27/22 [Rx Confirmed 03/27/22] silver sulfadiazine 1 % topical cream 1 applic topical BID skin peeling #85 grams 03/27/22 [Rx Confirmed 03/27/22] [facility] Medical History (Updated 02/27/22 @ 10:[address] 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 Thrush, oral Home Medications Levothyroxine 125 mcg PO DAILY thyroid 08/25/20 [History Last Taken Unknown] pentoxifylline 400 mg tablet,extended release 400 mg PO TID radiation fibrosis #90 tabs 05/17/21 [Rx Last Taken Unknown] vitamin E mixed 1,000 unit capsule 1,000 unit PO DAILY radiation fibrosis #30 caps 05/17/21 [Rx Last Taken Unknown] albuterol sulfate 1.25 mg/3 mL solution for nebulization 1.25 mg (3 mL) inhalation Q4H PRN bronchospasm #90 mL 12/10/21 [Rx Last Taken Unknown] amlodipine 5 mg tablet 5 mg PO DAILY bp 01/23/22 [History Last Taken Unknown] fluticasone propionate 50 mcg/actuation nasal spray,suspension 1 spray intranasal DAILY health maintenance 01/23/22 [History Last Taken Unknown] sodium chloride 1,000 mg soluble tablet 3 g PO BID #60 tabs 01/25/22 [Rx Last Taken Unknown] nystatin 100,000 unit/mL oral suspension 1 ml PO Q6H 02/14/22 [History Last Taken Unknown] oxycodone 5 mg capsule 5 mg PO BID PRN pain 1 month #60 caps 03/27/22 [Rx Last Taken Unknown] silver sulfadiazine 1 % topical cream 1 applic topical BID skin peeling #85 grams 03/27/22 [Rx Last Taken Unknown] Allergy/AdvReac Type Severity Reaction Status Date / Time No Known Allergies Allergy Verified 03/27/22 09:26 Family History Mother CVA (cerebral vascular accident) Surgical History history of biopsy neck History of removal of Port-a-Cath Hx of tonsillectomy S/P percutaneous endoscopic gastrostomy (PEG) tube placement ( 01/26/19) s/p port placement ( 01/26/19) Social History Smoking Status: Former smoker quit date: 09/16/21 Tobacco: How many years used: 30 how long ago did patient quit smokin-4 months ago second hand exposure: Yes alcohol intake: former details: August 2021 substance use type: does not use seatbelt use: sometimes do you feel safe at home: Yes Diagnosis: My Jama is a 61-year-old male diagnosed with 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 From 02/10/2019 ??? 03/25/2019 he received definitive chemoradiation therapy consisting of 6996 cGy in 33 fractions with concurrent high dose cisplatin. 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 From 12/20/2021 ??? 02/06/2022 he received reirradiation with concurrent chemotherapy. History of Present Illness: 04/28/2018: Patient underwent EGD due to odynophagia. This demonstrated significant esophagitis in the distal esophagus measuring 1-2 cm in length. Biopsy was obtained. Duodenum and stomach appeared normal. Pathology demonstrated focal changes suggestive of reflux. 12/15/2018: Patient presented to with a left-sided lump involving his neck which was firm and nontender. This lesion was present for about 3-4 weeks. 12/17/2018: CT neck and chest was completed. There are a few small scattered pulmonary nodules present with the largest in the right upper lobe anterior segment measuring 5 mm with solid features and smooth margins. Recommended to have follow-up low-dose chest CT in 1 year for pulmonary nodule surveillance. There is a rim-enhancing centrally cystic mass distal to the angle of the mandible lateral to the hyoid cartilage along the anterior margin of the sternocleidomastoid muscle with wall thickness up to 4.9 mm. Process measures approximately 1.8 cm craniocaudal and 2 1.8 cm transverse and 2.9 cm AP. Posteriorly and deep to the SCM there is a 1.2 x 1.6 cm mildly enlarged lymph node and a few additional shotty lymph nodes present on the left. No evidence of cervical adenopathy on the right. Pharyngeal and laryngeal soft tissues appear normal. 12/22/2018: Ultrasound-guided FNA of the left neck mass was completed and pathology demonstrated malignant cells consistent with keratinizing squamous cell carcinoma with extensive necrosis, p16 negative. 12/31/2018: Evaluation by medical oncology. Recommended ENT evaluation with panendoscopy and PET/CT for staging. 01/02/2019: Patient was evaluated by ENT. On exam he was noted to have a large fixed left cervical radha conglomerate. Also noted was a 1 cm cystic lesion of the uvula. Otherwise oral and oropharyngeal mucosa were normal. Flexible laryngoscopy was performed which demonstrated no evidence of lesion. Small cystic lesion of the uvula was felt to be benign. 01/05/2019: PET scan was performed which demonstrated 2 separate nodular foci of increased glucose metabolism manifest in the left lateral neck level 3 generating a calculated maximum SUV of 8.6 with the larger soft tissue density demonstrating central photopenia in the largest corresponding lesion measured on CT is 2.8 cm x 3.5 cm. There is asymmetric increased FDG distribution defined in the left pharyngeal mucosal space generating a calculated maximum SUV of 3.4 with a maximum axial diameter of corresponding metabolic abnormality measuring 1.9 cm. There is no evidence of metastatic disease identified. Recommendation is to closely clinically evaluate the left pharyngeal area lesion for primary disease. 01/08/2019: Patient underwent dental extraction of numbers 7 through 13 and #14. 01/13/2019: Patient underwent dental extraction of #6 and 2 through 5, he also completed amalgam fillings of #21 through 22 and 28. Following this procedure he was confirmed to be cleared for radiation therapy. 01/26/2019: Patient underwent placement of PEG tube and port. 01/30/2019: Patient completed left tonsil excision and uvula excision. Pathology displayed no evidence of malignancy or high-grade squamous dysplasia. There was noted to be submucosal dilated minor salivary gland duct with oncocytic metaplasia in the uvula. From 02/10/2019 ??? 03/25/2019: Received 6996 cGy delivered to gross disease involving the left neck, 5940 cGy to the high risk mucosal sites (entire oropharynx) and high risk lymph node sites (left levels 2-5), and 5412 cGy delivered to the low risk mucosal sites (nasopharynx, larynx, hypopharynx) bilateral high level 2, bilateral supraclavicular fossa, and right neck levels 2-5). Treatment was completed using dose painting IMRT and a single VMAT plan and he received concurrent chemotherapy with high dose cisplatin (cycle 1: 02/10, cycle 2: 03/02, cycle 3: 03/23). 05/13/2019: CT chest was performed. In comparison to the study in November 2018 there is persistent multifocal nodular pleural thickening or tiny pleural-based nodules in the lower lobes which are unchanged in size or number since the previous study. This measures 4 mm. 06/26/2019: Patient underwent swallow study and then had discussion with speech therapy. Recommendations are for a mechanical soft textured and thin liquid diet. Exercises and other strategies were recommended and speech therapy will continue to follow-up. 06/29/2019: PET scan was performed which demonstrated no definitive quantitative scintigraphic evidence of recurrent/metastatic viable neoplasm, overall when compared to the prior PET scan dated 01/05/2019 there is currently an absence of defined viable neoplastic disease with interval resolution of the primary defined hypermetabolic foci. 07/16/2019: Follow up with medical oncology. Plan for surveillance CT chest in 3 months to reassess nonspecific lung nodules. 03/30/2020: swallow study was performed. Recommendations are for regular/soft textured and thin liquid diet. 12/31/2019: Follow up with ENT. NPL showed no evidence of disease, epiglottic and arytenoid edema present. 04/06/2020: CT chest was performed and demonstrated bilateral pulmonary nodules which are stable since the prior exam. No other evidence of disease is identified. 09/02/2020: CT chest with contrast was performed. This demonstrated severely emphysematous lungs bilaterally with multiple scattered stable small nodules. No evidence of metastatic disease identified. 01/25/2021: Patient had removal of the remaining teeth lower teeth 21???28. Patient was treated with antibiotics for slowly healing fibrotic tissue. Patient is also being treated with Trental/vitamin E. 02/27/2021: CT chest was completed. This demonstrated stable findings including small scattered noncalcified nodules seen in both lungs. 08/23/2021: CT soft tissue neck with contrast was performed. This demonstrated evidence of bony destruction involving the mid anterior aspect of the mandible. The transverse dimension of the destruction measures 2.1 cm. There appears to be a 2.6 x 3.7 cm soft tissue mass overlying the anterior aspect of the midportion of the mandible, should rule out neoplastic process. No other abnormalities are appreciated. 10/11/2021: PET scan was performed. This demonstrated heterogeneous increased FDG distribution defined in the anterior midline mandible extending into the periosseous soft tissue anteriorly with a calculated max of SUV of 12 maximum diameter of 5.1 x 5.5 cm. No other quantitatively significant hypermetabolic abnormalities are noted. 11/07/2021: Patient underwent direct laryngoscopy, flexible bronchoscopy, flexible esophagoscopy, PEG tube placement, tracheostomy, composite resection of oral cavity, excision of skin and soft tissue measuring 8 x 9 cm, segmental mandibulectomy, right selective neck dissection of levels 1 through 4 and left neck exploration for vessels. Reconstruction was thigh free flap and had complex neck closure with split thickness skin graft. 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 There was skin invasion present. LVSI not identified. PNI present and focal. Right posterior floor of mouth mucosal margin is involved by invasive carcinoma, left posterior floor of mouth margin is involved by high-grade dysplasia/in situ disease. Right skin soft tissue margin is less than 1 mm, right oral soft tissue margin is 1.5 mm, posterior soft tissue margin is 2.5-3 mm. 3 lymph nodes were involved 2 involving the right level 1 and 1 involving the right level 4, largest deposit was 3 mm and no DEREK was noted. 11/09/2021. Postoperative course was complicated by arterial clotting and taken back to the OR for arterial release, flap checks were stable following the takeback. From 12/20/2021 ??? 02/06/2022: received reirradiation with weekly carboplatin consisting of 6600 cGy delivered to the area concerning for close/positive margin and 5940 cGy delivered to the flap based reconstruction and right neck levels 1 through 4. Radiation Treatment History: 1) From 02/10/2019 ??? 03/25/2019: Received 6996 cGy delivered to gross disease involving the left neck, 5940 cGy to the high risk mucosal sites (entire oropharynx) and high risk lymph node sites (left levels 2-5), and 5412 cGy delivered to the low risk mucosal sites (nasopharynx, larynx, hypopharynx) bilateral high level 2, bilateral supraclavicular fossa, and right neck levels 2-5). Treatment was completed using dose painting IMRT and a single VMAT plan and he received concurrent chemotherapy with high dose cisplatin (cycle 1: 02/10, cycle 2: 03/02, cycle 3: 03/23). 2) From 12/20/2021 ??? 02/06/2022: received reirradiation with weekly carboplatin consisting of 6600 cGy delivered to the area concerning for close/positive margin and 5940 cGy delivered to the flap based reconstruction and right neck levels 1 through 4. Interval History: Patient presents for routine follow-up approximately 8 weeks after completing reirradiation to the head and neck. He reports doing fairly well overall. He reports pain primarily in his jaw which ranges from 2-6/10 and he is taking oxycodone 5 mg twice per day for relief. He continues to have healing issues with a very slow healing wound at the inferior extent of the flap reconstruction, he is using Silvadene cream regularly. He is taking Luis Felipe. He is taking most nutrition by mouth, he eats soft food and does supplemental drinks otherwise he uses about 2 cans through his PEG tube per day. His weight has remained stable. He denies dry mouth or taste changes. He also does report some discomfort at the tracheostomy site but reports no difficulty with managing the trach. He denies cough, shortness of breath, chest pain. He reports full arm range of motion and does not have any numbness or weakness. He continues to work very closely with speech therapy. He can complete all ADLs without much difficulty and denies having other problems or concerns at this time. Review of Systems: A 12-point review of systems was completed and was negative except for what is noted in the HPI/Interval History and by the nurse. Physical Exam: Weight: 127 lbs 5 oz (weight at end of treatment 02/06/2022: 126 lbs 9 oz) ECO KARNOFSKY SCORE: 70% CONSTITUTIONAL: Well-developed, well-nourished, and in no apparent distress. HEENT: Mucous membranes moist. No evidence of thrush or lesions within the visualized oropharynx or oral cavity. Edentulous. No trismus. There is flap based reconstruction of the floor of mouth and anterior jaw/mandible as well as skin, there is one area of slow healing/open sore at the inferior left area of the flap abutting the neck, lips swollen. Pupils are equal, round, and reactive to light and accommodation. Extraocular movements are intact. Sclerae are anicteric. NECK: Supple, no thyromegaly, and non-tender. Tracheostomy midline. No cervical or supraclavicular adenopathy noted. No neck erythema. Fibrosis involving the left neck. CARDIAC: Regular rate and rhythm. Normal S1, S2. No murmurs, rubs, or gallops. PULMONARY/CHEST: Lungs are clear to auscultation and percussion bilaterally. No wheezes, rhonchi, or crackles noted. No increased work of breathing. ABDOMINAL: Abdomen soft, non-tender, non-distended. No hepatomegaly. Normoactive bowel sounds in all four quadrants. No guarding, rebound. PEG tube in place without abnormality BACK: Straight and aligned. No CVA tenderness. Axial skeleton non-tender to percussion. EXTREMITIES: Full range of motion in all four extremities. No evidence of edema. NEUROLOGICAL EXAM: Alert and oriented x 3. Answers questions and follows commands appropriately. Cranial nerves II through XII are grossly intact. No focal neurological deficit. Speech is fluent. Muscle strength is 5/5 in all muscle groups. Gait and posture without abnormality. PSYCHIATRIC: Appropriate mood and affect for the clinical situation. 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 From 02/10/2019 ??? 03/25/2019 he received definitive chemoradiation therapy consisting of 6996 cGy in 33 fractions with concurrent high dose cisplatin. 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 From 12/20/2021 ??? 02/06/2022 he received reirradiation with concurrent chemotherapy. Plan: Patient returns for follow-up approximately 8 weeks after completing reirradiation with concurrent carboplatin for head and neck cancer. There is no evidence of disease on exam. He has continued to improve from his initial posttreatment evaluation. He does still have very slow wound healing of an open area at the inferior portion of his flap, this was present prior to radiation and he has been treated with antibiotics, currently using Silvadene and he is taking Luis Felipe, this area remains is stable. Otherwise skin erythema has resolved. I reviewed skin care instructions and refilled Silvadene. Pain meds refilled. Continue advancing diet and continue close follow-up with speech therapy, reviewed the goal of tube removal in the next couple months. He will see ENT on 04/02 and I will have him return for routine follow-up in 1 month and he was instructed to call with any further questions or concerns in the interim. Thank you for allowing me to participate in the management and care of your patient. If I may answer any questions in the interim, please do not hesitate to contact me at any time. Santiago Sellers DO, MS Environmental Services Floor Tech, Department of Radiation Oncology [facility] Coding Level of Care Code Off vis,est,level 3 Diagnoses Floor of mouth squamous cell carcinoma C04.9 03/27/22 1002 <Electronically signed by Santiago Sellers DO> Date Santiago Sellers DO Cosigner Signature: Date (if applicable) CC: BOOTH CLEANER-C Kya Gonzalez; Dr. Quincy Simpson MD; MD Kya Agustin Work Phone: Start: 02-27-2022 End: 02-27-2022 Radiation Oncology Visit Comments: See Note; NOTES: [facility] [address] [place] [address] OFFICE VISIT Date of Service: 02/27/22 0958 MR#: [id number] Acct: [id number] Name: MY JAMA Rep #: [id number] : 1960 From: Santiago Sellers DO Age/Sex: 61/M Location: [facility] [place] Status: Signed Intake Vital Signs 02/27/22 10:05 Weight: 127 lb Blood Pressure Location Rt brachial Position Sitting Respiration 18 Pulse 71 Pulse Source Monitor Temp 97.0 F L Temperature Source Temporal Artery Pulse Oximetry (%) 100 Oxygen Delivery Method room air Intake Visit Reasons: follow up Chief Complaint: Recurrent head and neck cancer Allergies No Known Allergies Allergy (Verified 02/27/22 10:03) Medications Levothyroxine 125 mcg PO DAILY 08/25/20 [History Confirmed 02/27/22] pentoxifylline 400 mg tablet,extended release 400 mg PO TID #90 tab 05/17/21 [Rx Confirmed 02/27/22] vitamin E mixed 1,000 unit capsule 1,000 unit PO DAILY #30 cap 05/17/21 [Rx Confirmed 02/27/22] albuterol sulfate 1.25 mg INHALATION Q4H PRN #90 ml 12/10/21 [Rx Confirmed 02/27/22] amlodipine 5 mg PO DAILY 01/23/22 [History Confirmed 02/27/22] fluticasone propionate 1 spray INTRANASAL DAILY 01/23/22 [History Confirmed 02/27/22] sodium chloride 3 g PO BID #60 tab 01/25/22 [Rx Confirmed 02/27/22] silver sulfadiazine 1 % topical cream 1 applic TOPICAL BID #85 g 02/06/22 [Rx Confirmed 02/27/22] nystatin 100,000 unit/mL oral suspension 1 ml PO Q6H ml 02/14/22 [History Confirmed 02/27/22] oxycodone 5 mg capsule 5 mg PO BID PRN 30 Days #60 cap 02/27/22 [Rx Confirmed 02/27/22] PFSH PFS Medical History (Updated 02/27/22 @ 10:[address] 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 Thrush, oral Home Medications Levothyroxine 125 mcg PO DAILY 08/25/20 [History Last Taken Unknown] pentoxifylline 400 mg tablet,extended release 400 mg PO TID #90 tab 05/17/21 [Rx Last Taken Unknown] vitamin E mixed 1,000 unit capsule 1,000 unit PO DAILY #30 cap 05/17/21 [Rx Last Taken Unknown] albuterol sulfate 1.25 mg INHALATION Q4H PRN #90 ml 12/10/21 [Rx Last Taken Unknown] amlodipine 5 mg PO DAILY 01/23/22 [History Last Taken Unknown] fluticasone propionate 1 spray INTRANASAL DAILY 01/23/22 [History Last Taken Unknown] sodium chloride 3 g PO BID #60 tab 01/25/22 [Rx Last Taken Unknown] silver sulfadiazine 1 % topical cream 1 applic TOPICAL BID #85 g 02/06/22 [Rx Last Taken Unknown] nystatin 100,000 unit/mL oral suspension 1 ml PO Q6H ml 02/14/22 [History Last Taken Unknown] oxycodone 5 mg capsule 5 mg PO BID PRN 30 Days #60 cap 02/27/22 [Rx Last Taken Unknown] Allergy/AdvReac Type Severity Reaction Status Date / Time No Known Allergies Allergy Verified 02/27/22 10:03 Family History Mother CVA (cerebral vascular accident) Surgical History history of biopsy neck History of removal of Port-a-Cath Hx of tonsillectomy S/P percutaneous endoscopic gastrostomy (PEG) tube placement ( 01/26/19) s/p port placement ( 01/26/19) Social History Smoking Status: Former smoker quit date: 09/16/21 Tobacco: How many years used: 30 how long ago did patient quit smokin-4 months ago second hand exposure: Yes alcohol intake: former details: August 2021 substance use type: does not use seatbelt use: sometimes do you feel safe at home: Yes Diagnosis: My Jama is a 61-year-old male diagnosed with 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 From 02/10/2019 ??? 03/25/2019 he received definitive chemoradiation therapy consisting of 6996 cGy in 33 fractions with concurrent high dose cisplatin. 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 From 12/20/2021 ??? 02/06/2022 he received reirradiation with concurrent chemotherapy. History of Present Illness: 04/28/2018: Patient underwent EGD due to odynophagia. This demonstrated significant esophagitis in the distal esophagus measuring 1-2 cm in length. Biopsy was obtained. Duodenum and stomach appeared normal. Pathology demonstrated focal changes suggestive of reflux. 12/15/2018: Patient presented to with a left-sided lump involving his neck which was firm and nontender. This lesion was present for about 3-4 weeks. 12/17/2018: CT neck and chest was completed. There are a few small scattered pulmonary nodules present with the largest in the right upper lobe anterior segment measuring 5 mm with solid features and smooth margins. Recommended to have follow-up low-dose chest CT in 1 year for pulmonary nodule surveillance. There is a rim-enhancing centrally cystic mass distal to the angle of the mandible lateral to the hyoid cartilage along the anterior margin of the sternocleidomastoid muscle with wall thickness up to 4.9 mm. Process measures approximately 1.8 cm craniocaudal and 2 1.8 cm transverse and 2.9 cm AP. Posteriorly and deep to the SCM there is a 1.2 x 1.6 cm mildly enlarged lymph node and a few additional shotty lymph nodes present on the left. No evidence of cervical adenopathy on the right. Pharyngeal and laryngeal soft tissues appear normal. 12/22/2018: Ultrasound-guided FNA of the left neck mass was completed and pathology demonstrated malignant cells consistent with keratinizing squamous cell carcinoma with extensive necrosis, p16 negative. 12/31/2018: Evaluation by medical oncology. Recommended ENT evaluation with panendoscopy and PET/CT for staging. 01/02/2019: Patient was evaluated by ENT. On exam he was noted to have a large fixed left cervical radha conglomerate. Also noted was a 1 cm cystic lesion of the uvula. Otherwise oral and oropharyngeal mucosa were normal. Flexible laryngoscopy was performed which demonstrated no evidence of lesion. Small cystic lesion of the uvula was felt to be benign. 01/05/2019: PET scan was performed which demonstrated 2 separate nodular foci of increased glucose metabolism manifest in the left lateral neck level 3 generating a calculated maximum SUV of 8.6 with the larger soft tissue density demonstrating central photopenia in the largest corresponding lesion measured on CT is 2.8 cm x 3.5 cm. There is asymmetric increased FDG distribution defined in the left pharyngeal mucosal space generating a calculated maximum SUV of 3.4 with a maximum axial diameter of corresponding metabolic abnormality measuring 1.9 cm. There is no evidence of metastatic disease identified. Recommendation is to closely clinically evaluate the left pharyngeal area lesion for primary disease. 01/08/2019: Patient underwent dental extraction of numbers 7 through 13 and #14. 01/13/2019: Patient underwent dental extraction of #6 and 2 through 5, he also completed amalgam fillings of #21 through 22 and 28. Following this procedure he was confirmed to be cleared for radiation therapy. 01/26/2019: Patient underwent placement of PEG tube and port. 01/30/2019: Patient completed left tonsil excision and uvula excision. Pathology displayed no evidence of malignancy or high-grade squamous dysplasia. There was noted to be submucosal dilated minor salivary gland duct with oncocytic metaplasia in the uvula. From 02/10/2019 ??? 03/25/2019: Received 6996 cGy delivered to gross disease involving the left neck, 5940 cGy to the high risk mucosal sites (entire oropharynx) and high risk lymph node sites (left levels 2-5), and 5412 cGy delivered to the low risk mucosal sites (nasopharynx, larynx, hypopharynx) bilateral high level 2, bilateral supraclavicular fossa, and right neck levels 2-5). Treatment was completed using dose painting IMRT and a single VMAT plan and he received concurrent chemotherapy with high dose cisplatin (cycle 1: 02/10, cycle 2: 03/02, cycle 3: 03/23). 05/13/2019: CT chest was performed. In comparison to the study in November 2018 there is persistent multifocal nodular pleural thickening or tiny pleural-based nodules in the lower lobes which are unchanged in size or number since the previous study. This measures 4 mm. 06/26/2019: Patient underwent swallow study and then had discussion with speech therapy. Recommendations are for a mechanical soft textured and thin liquid diet. Exercises and other strategies were recommended and speech therapy will continue to follow-up. 06/29/2019: PET scan was performed which demonstrated no definitive quantitative scintigraphic evidence of recurrent/metastatic viable neoplasm, overall when compared to the prior PET scan dated 01/05/2019 there is currently an absence of defined viable neoplastic disease with interval resolution of the primary defined hypermetabolic foci. 07/16/2019: Follow up with medical oncology. Plan for surveillance CT chest in 3 months to reassess nonspecific lung nodules. 03/30/2020: swallow study was performed. Recommendations are for regular/soft textured and thin liquid diet. 12/31/2019: Follow up with ENT. NPL showed no evidence of disease, epiglottic and arytenoid edema present. 04/06/2020: CT chest was performed and demonstrated bilateral pulmonary nodules which are stable since the prior exam. No other evidence of disease is identified. 09/02/2020: CT chest with contrast was performed. This demonstrated severely emphysematous lungs bilaterally with multiple scattered stable small nodules. No evidence of metastatic disease id entified. 01/25/2021: Patient had removal of the remaining teeth lower teeth 21???28. Patient was treated with antibiotics for slowly healing fibrotic tissue. Patient is also being treated with Trental/vitamin E. 02/27/2021: CT chest was completed. This demonstrated stable findings including small scattered noncalcified nodules seen in both lungs. 08/23/2021: CT soft tissue neck with contrast was performed. This demonstrated evidence of bony destruction involving the mid anterior aspect of the mandible. The transverse dimension of the destruction measures 2.1 cm. There appears to be a 2.6 x 3.7 cm soft tissue mass overlying the anterior aspect of the midportion of the mandible, should rule out neoplastic process. No other abnormalities are appreciated. 10/11/2021: PET scan was performed. This demonstrated heterogeneous increased FDG distribution defined in the anterior midline mandible extending into the periosseous soft tissue anteriorly with a calculated max of SUV of 12 maximum diameter of 5.1 x 5.5 cm. No other quantitatively significant hypermetabolic abnormalities are noted. 11/07/2021: Patient underwent direct laryngoscopy, flexible bronchoscopy, flexible esophagoscopy, PEG tube placement, tracheostomy, composite resection of oral cavity, excision of skin and soft tissue measuring 8 x 9 cm, segmental mandibulectomy, right selective neck dissection of levels 1 through 4 and left neck exploration for vessels. Reconstruction was thigh free flap and had complex neck closure with split thickness skin graft. 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 There was skin invasion present. LVSI not identified. PNI present and focal. Right posterior floor of mouth mucosal margin is involved by invasive carcinoma, left posterior floor of mouth margin is involved by high-grade dysplasia/in situ disease. Right skin soft tissue margin is less than 1 mm, right oral soft tissue margin is 1.5 mm, posterior soft tissue margin is 2.5-3 mm. 3 lymph nodes were involved 2 involving the right level 1 and 1 involving the right level 4, largest deposit was 3 mm and no DEREK was noted. 11/09/2021. Postoperative course was complicated by arterial clotting and taken back to the OR for arterial release, flap checks were stable following the takeback. From 12/20/2021 ??? 02/06/2022: received reirradiation with weekly carboplatin consisting of 6600 cGy delivered to the area concerning for close/positive margin and 5940 cGy delivered to the flap based reconstruction and right neck levels 1 through 4. Radiation Treatment History: 1) From 02/10/2019 ??? 03/25/2019: Received 6996 cGy delivered to gross disease involving the left neck, 5940 cGy to the high risk mucosal sites (entire oropharynx) and high risk lymph node sites (left levels 2-5), and 5412 cGy delivered to the low risk mucosal sites (nasopharynx, larynx, hypopharynx) bilateral high level 2, bilateral supraclavicular fossa, and right neck levels 2-5). Treatment was completed using dose painting IMRT and a single VMAT plan and he received concurrent chemotherapy with high dose cisplatin (cycle 1: 02/10, cycle 2: 03/02, cycle 3: 03/23). 2) From 12/20/2021 ??? 02/06/2022: received reirradiation with weekly carboplatin consisting of 6600 cGy delivered to the area concerning for close/positive margin and 5940 cGy delivered to the flap based reconstruction and right neck levels 1 through 4. Interval History: Patient presents for routine follow-up approximately 4 weeks after completing reirradiation to the head and neck. He reports doing fairly well overall. He has mild pain which is mostly noticed at night and is taking oxycodone only at night for relief, he just ran out recently. He believes his skin has been healing fairly well, he still reports having some open areas beneath the flap, he is putting Silvadene cream where he has moist peeling and is using Luis Felipe. He does use rinses provided to him by ENT. He reports normal taste. He denies dry mouth. He is eating some soft foods and boost PO but taking most of his nutrition via PEG using 3-4 cans/day. Weight has remained stable. He denies having any difficulty with his trach. He otherwise denies problems or concerns at this time. Review of Systems: A 12-point review of systems was completed and was negative except for what is noted in the HPI/Interval History and by the nurse. Physical Exam: Weight: 127 lbs (weight at end of treatment 02/06/2022: 126 lbs 9 oz) ECO KARNOFSKY SCORE: 70% CONSTITUTIONAL: Well-developed, well-nourished, and in no apparent distress. HEENT: Mucous membranes moist. No evidence of thrush or lesions within the visualized oropharynx or oral cavity. Edentulous. No trismus. There is flap based reconstruction of the floor of mouth and anterior jaw/mandible as well as skin, there are open sores on the exterior of the flap abutting the neck, lips swollen. Pupils are equal, round, and reactive to light and accommodation. Extraocular movements are intact. Sclerae are anicteric. NECK: Supple, no thyromegaly, and non-tender. Tracheostomy midline. No cervical or supraclavicular adenopathy noted. No neck erythema. Fibrosis involving the left neck. CARDIAC: Regular rate and rhythm. Normal S1, S2. No murmurs, rubs, or gallops. PULMONARY/CHEST: Lungs are clear to auscultation and percussion bilaterally. No wheezes, rhonchi, or crackles noted. No increased work of breathing. ABDOMINAL: Abdomen soft, non-tender, non-distended. No hepatomegaly. Normoactive bowel sounds in all four quadrants. No guarding, rebound. PEG tube in place without abnormality BACK: Straight and aligned. No CVA tenderness. Axial skeleton non-tender to percussion. EXTREMITIES: Full range of motion in all four extremities. No evidence of edema. NEUROLOGICAL EXAM: Alert and oriented x 3. Answers questions and follows commands appropriately. Cranial nerves II through XII are grossly intact. No focal neurological deficit. Speech is fluent. Muscle strength is 5/5 in all muscle groups. Gait and posture without abnormality. PSYCHIATRIC: Appropriate mood and affect for the clinical situation. 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 From 02/10/2019 ??? 03/25/2019 he received definitive chemoradiation therapy consisting of 6996 cGy in 33 fractions with concurrent high dose cisplatin. 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 From 12/20/2021 ??? 02/06/2022 he received reirradiation with concurrent chemotherapy. Plan: Patient returns for follow-up approximately 4 weeks after completing reirradiation with concurrent carboplatin for head and neck cancer. There is no evidence of disease on exam. He has continued to improve from his initial posttreatment evaluation. He does still have slow wound healing of an open area at the inferior portion of his flap, this was present prior to radiation and he has been treated with antibiotics, currently using Vaseline and Silvadene. He is also taking Luis Felipe, this area is stable. Otherwise skin erythema has resolved. I reviewed skin care instructions. Pain meds refilled. Continue cautiously advancing diet and continue close follow-up with speech therapy. I will have him return for routine follow-up in 1 month and he was instructed to call with any further questions or concerns in the interim. Thank you for allowing me to participate in the management and care of your patient. If I may answer any questions in the interim, please do not hesitate to contact me at any time. Santiago Sellers DO, MS Environmental Services Floor Tech, Department of Radiation Oncology [facility] Coding Level of Care Code Off vis,est,level 3 Diagnoses Floor of mouth squamous cell carcinoma C04.9 02/27/22 1101 <Electronically signed by Santiago Sellers DO> Date Santiago Sellers DO Cosigner Signature: Date (if applicable) CC: Kya Gonzalez Work Phone: Start: 02-14-2022 End: 02-14-2022 Oncology Visit Report Comments: See Note; NOTES: [facility] [address] [place], [place] [address] [address] OFFICE VISIT Date of Service: 02/14/22 1042 MR#: [id number] Acct: [id number] Name: MY JAMA Rep #: [id number] : 1960 From: Quincy Simpson MD Age/Sex: 61/M Location: [facility] [place] Status: Signed HPI Subjective Date of Service 02/14/22 Chief Complaint Recurrent head and neck cancer History of Present Illness 61-year-old male Ex-smoker and heavy alcohol user who presented with a painless left neck mass that progressively increased in size over the course of the past couple of months. December 17, 2018 CT soft tissues of the neck: FINDINGS: There is a rim-enhancing centrally cystic mass distal to the angle the mandible, lateral to the hyoid cartilage, along the anterior margin of the sternocleidomastoid muscle. Wall thickness up to 4.9 mm. Process measures approximately 1.8 cm craniocaudal, 1.8 cm transverse, 2.9 cm anterior-posterior. Posteriorly and deep to the sternomastoid muscle, single mildly enlarged lymph node measuring 1.2 x 1.6 cm. A few additional shotty lymph nodes are present on the left. Normal thyroid. Normal submandibular glands and parotid glands. There is no right cervical lymphadenopathy. Pharyngeal and laryngeal soft tissues appear normal. Multilevel cervical spondylosis with disc disease most notable at C5-C6 with uncovertebral joint hypertrophy contributing to mild foraminal narrowing. Mucoperiosteal thickening and mucous retention cysts of the maxillary sinuses. Solitary opacified posterior right ethmoid sinus. Mastoid air cells and middle ear cavities clear. 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 December 17, 2018 CT chest: FINDINGS: Supraclavicular: No acute process within the [id number]. Body wall soft tissues: No acute process. Upper abdomen: No acute process. Osseous structures: No acute process. Mild scoliosis, moderate kyphosis, mild multilevel thoracic spondylosis. Mediastinum: No acute process. Cardiovascular: No acute process. Lungs: A few small scattered pulmonary nodules are present. The largest is in the right upper lobe anterior segment, series 6 image 73, 5 cm, solid features, smooth margins. Unremarkable airways. IMPRESSION: No acute thoracic process is evident. Small pulmonary nodules. The largest measures approximately 5 mm. Follow-up low-dose CT chest is recommended in 1 year for pulmonary nodule surveillance purposes. December 22, 2018 DIAGNOSIS CYTOLOGY A. 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 See comment. B. 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 ANTIBODY / CLONE RESULT Block A AE1-3 (AE1/AE3/PCK26) positive CK7 (OV-TL12/30) negative CK8 ([id number]) positive, weak CK20 (KS20.8) negative TTF-1 (8G7G3/1) negative Napsin A (Rabbit Polyclonal) negative HepPar (OCh1E5) negative RCC (PN-15) negative PSAP (PASE/4LJ) negative CK5-6 (D5 1684) positive P16 (E6H4) negative P40 (BC28) positive, focal January 02, 2019: Patient was evaluated by ENT : oral and oropharyngeal mucosa were normal. Flexible laryngoscopy was performed which demonstrated no evidence of lesion. Small cystic lesion of the uvula was felt to be benign. January 05, 2019 PET/CT: IMPRESSION: 1. ABNORMAL EXAMINATION INDICATIVE OF MALIGNANT-VIABLE NEOPLASM. 2. Increased glucose concentration observed in the left lateral neck fulfills quantitative criteria for viable neoplasm. 3. Asymmetric enhanced FDG distribution noted in the left pharyngeal mucosal space may be further investigated with rigorous clinical examination. 4. No other quantitatively significant hypermetabolic abnormalities are noted. There is no definitive scintigraphic evidence of distant metastatic disease. January 30, 2019: left tonsil excision and uvula excision. Pathology displayed no evidence of malignancy or high-grade squamous dysplasia. There was noted to be submucosal dilated minor salivary gland duct with oncocytic metaplasia in the uvula. In preparation for locoregional combined chemoradiation patient Patient underwent multiple dental extractions, placement of PEG tube and port. February 10 through March 25, 2019 combined modality therapy (see below for details) May 13, 2019: CT chest: Comparison is made with prior study in December 17, 2018 There is persistent multifocal nodular pleural thickening or tiny pleural-based nodules in the lower lobes which are unchanged in size or number since previous study. The dominant nodule in the right lower lobe is not changed appreciably in size since prior exam June 29, 2019 PET/CT: IMPRESSION: 1. NEGATIVE EXAMINATION. There is no definitive quantitative scintigraphic evidence of recurrent-metastatic viable neoplasm. 2. There is interval metabolic resolution of the previously identified left lateral neck and left pharyngeal mucosal space hypermetabolic abnormalities. 3. Overall, compared to the prior FDG PET study dated 01/05/19, there is current absence of defined viable neoplastic disease with interval resolution of the prior defined hypermetabolic foci, as articulated above. October 07, 2019 CT chest: IMPRESSION: Normal enhanced CT Chest examination. April 06, 2020 CT chest: IMPRESSION: 1. Bilateral pulmonary nodules, stable in the interval. Appropriate follow-up using Fleischner Society criteria is recommended. 2. Dilatation of the main pulmonary artery measuring up to 3.2 cm in diameter. This may be associated with pulmonary hypertension. 3. Increased thoracic kyphosis. Diffuse endplate spondylosis of the visualized cervical, thoracic, and lumbar spine. No lytic or blastic osseous changes are seen. September 02, 2020 CT chest: FINDINGS: Lungs are severely emphysematous with multiple scattered stable nodules. There is a new small, 3 mm nodule in the anterior segment of the right upper lobe, image 36/136 series #4. Remainder of the nodules are stable since priors and are all less than 5 mm and low risk appearing. Additional 1 -- 2 mm nodules are present and are too small to reliably characterize between the current and prior scan due to differences in technique, inspiration, etc. Central airways are patent. Pleural surfaces are intact. Mediastinal contents are normal. Cardiac chambers are normal in size and shape. Pericardium is normal. Osseous structures are intact with exaggerated lower thoracic kyphosis without osseous lesions. Upper abdominal structures are normal. IMPRESSION: 1. Severe emphysema. 2. Multiple low risk and stable over many nodules. CT chest February 27, 2021 IMPRESSION: Stable examination. Stable emphysematous changes. CT neck August 23, 2021: demonstrated evidence of bony destruction involving the mid anterior aspect of the mandible. The transverse dimension of the destruction measures 2.1 cm. There appears to be a 2.6 x 3.7 cm soft tissue mass overlying the anterior aspect of the midportion of the mandible, should rule out neoplastic process. No other abnormalities are appreciated. PET/CT restaging October 11, 2021: demonstrated heterogeneous increased FDG distribution defined in the anterior midline mandible extending into the periosseous soft tissue anteriorly with a calculated max of SUV of 12 maximum diameter of 5.1 x 5.5 cm. No other quantitatively significant hypermetabolic abnormalities are noted. November 07, 2021 direct laryngoscopy, flexible bronchoscopy, flexible esophagoscopy, PEG tube placement, tracheostomy, composite resection of oral cavity, excision of skin and soft tissue measuring 8 x 9 cm, segmental mandibulectomy, right selective neck dissection of levels 1 through 4 and left neck exploration with reconstruction with thigh free flap and had complex neck closure with split thickness skin graft. 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 There was skin invasion present. LVSI not identified. PNI present and focal. Right posterior floor of mouth mucosal margin is involved by invasive carcinoma, left posterior floor of mouth margin is involved by high-grade dysplasia/in situ disease. Right skin soft tissue margin is less than 1 mm, right oral soft tissue margin is 1.5 mm, posterior soft tissue margin is 2.5-3 mm. 3 lymph nodes were involved 2 involving the right level 1 and 1 involving the right level 4, largest deposit was 3 mm and no DEREK was noted. November 09, 2021 postoperative course was complicated by arterial clotting and taken back to the OR for arterial release, flap checks were stable following the takeback. Treatment summary: * Combined high-dose cisplatin and radiation January through March 2019: 6996 cGy delivered to gross disease involving the left neck, 5940 cGy to the high risk mucosal sites (entire oropharynx) and high risk lymph node sites (left levels 2-5), and 5412 cGy delivered to the low risk mucosal sites (nasopharynx, larynx, hypopharynx) bilateral high level 2, bilateral supraclavicular fossa, and right neck levels 2-5). The patient did receive concurrent chemotherapy with high dose cisplatin (cycle 1: 02/10, cycle 2: 03/02, cycle 3: 03/23). Date of First Treatment: 02/10/2019 Date of Last Treatment: 03/25/2019 * November 07, 2021 direct laryngoscopy, flexible bronchoscopy, flexible esophagoscopy, PEG tube placement, tracheostomy, composite resection of oral cavity, excision of skin and soft tissue measuring 8 x 9 cm, segmental mandibulectomy, right selective neck dissection of levels 1 through 4 and left neck exploration with reconstruction with thigh free flap and had complex neck closure with split thickness skin graft. * Adjuvant concurrent chemoradiation with carboplatin AUC 2 (first 5 weeks) with 6600 cGy delivered to the area concerning for close/positive margin and 5940 cGy delivered to the flap based reconstruction and right neck levels 1 through 4. He was treated with a simultaneous integrated boost technique using VMAT planning with 6 MV photons. 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 Thrush, oral Surgical History history of biopsy neck History of removal of Port-a-Cath Hx of tonsillectomy S/P percutaneous endoscopic gastrostomy (PEG) tube placement ( 01/26/19) s/p port placement ( 01/26/19) Family History Mother CVA (cerebral vascular accident) Social History Smoking Status: Former smoker quit date: 09/16/21 Tobacco: How many years used: 30 how long ago did patient quit smokin-4 months ago second hand exposure: Yes alcohol intake: former details: August 2021 substance use type: does not use seatbelt use: sometimes do you feel safe at home: Yes ROS Constitutional Constitutional: Reports systems reviewed and no addt'l complaints, except as documented, fatigue and other Details: Able to do ADL independently ; Denies anorexia, fever(s) or weight loss Eyes Eyes: Reports systems reviewed and no addt'l complaints, except as documented; Denies change in vision ENT HEENT: Reports systems reviewed and no addt'l complaints, except as documented, dry mouth, dysphagia, hearing loss, hoarseness and other Details: Dysphagia is improving and he is advancing soft diet ; Denies mouth lesions or mouth pain Cardiovascular Cardiovascular: Reports systems reviewed and no addt'l complaints, except as documented; Denies chest pain with activity or edema Respiratory/Chest Respiratory/Chest: Reports systems reviewed and no addt'l complaints, except as documented and cough; Denies dyspnea or hemoptysis Gastrointestinal Gastrointestinal: Reports systems reviewed and no addt'l complaints, except as documented; Denies change in bowel habits, hematochezia or melena Genitourinary Genitourinary: Reports systems reviewed and no addt'l complaints, except as documented; Denies hematuria Musculoskeletal Musculoskeletal: Reports systems reviewed and no addt'l complaints, except as documented; Denies arthralgias Integumentary Integumentary: Reports systems reviewed and no addt'l complaints, except as documented; Denies rash Neurologic Neurologic: Reports systems reviewed and no addt'l complaints, except as documented; Denies headache(s) Psychiatric Psychiatric: Reports systems reviewed and no addt'l complaints, except as documented Endocrine Endocrinology: Reports systems reviewed and no addt'l complaints, except as documented Hematologic/Lymphatic Hematologic/Lymphatic: Reports systems reviewed and no addt'l complaints, except as documented; Denies easy bleeding, easy bruising or lymphadenopathy Allergic/Immunologic Allergic/Immunologic: Reports systems reviewed and no addt'l complaints, except as documented Intake Vital Signs 01/31/22 09:09 02/14/22 10:44 Height 5 ft 6 in 5 ft 4 in Weight: 57.72 kg BMI 21.8 BP 107/61 Blood Pressure Location Rt brachial Position Sitting Respiration 18 Pulse 95 Pulse Source Monitor Temp 98 F Temperature Source Temporal Artery Pulse Oximetry (%) 100 Oxygen Delivery Method room air Intake Is patient in pain?: No Allergies No Known Allergies Allergy (Verified 02/14/22 10:42) Medications Levothyroxine 125 mcg PO DAILY 08/25/20 [History Confirmed 02/14/22] pentoxifylline 400 mg tablet,extended release 400 mg PO TID #90 tab 05/17/21 [Rx Confirmed 02/14/22] vitamin E mixed 1,000 unit capsule 1,000 unit PO DAILY #30 cap 05/17/21 [Rx Confirmed 02/14/22] albuterol sulfate 1.25 mg INHALATION Q4H PRN #90 ml 12/10/21 [Rx Confirmed 02/14/22] amlodipine 5 mg PO DAILY 01/23/22 [History Confirmed 02/14/22] fluticasone propionate 1 spray INTRANASAL DAILY 01/23/22 [History Confirmed 02/14/22] sodium chloride 3 g PO BID #60 tab 01/25/22 [Rx Confirmed 02/14/22] silver sulfadiazine 1 % topical cream 1 applic TOPICAL BID #85 g 02/06/22 [Rx Confirmed 02/14/22] nystatin 100,000 unit/mL oral suspension 1 ml PO Q6H ml 02/14/22 [History Confirmed 02/14/22] Central Venous Access Central Venous Access: No CBC, CMP February 14, 2022 reviewed in EMR Exam Physical Exam Narrative ECOG 1 Hard of hearing Const alert, oriented x3 and no apparent distress General Appearance: cooperative and comfortable HEENT normocephalic HEENT Narrative: Reconstruction of the lower face, soft tissue edema Mouth: No thrush Eyes General Eye: normal appearance of both eyes Conjunctiva: conjunctiva normal Sclera: sclera normal Neck no lymphadenopathy and no JVD Neck Narrative: Postoperative changes including flap. There is residual tissue edema General: tracheostomy present Lymph Lymphatic: no lymphadenopathy noted Chest Chest: symmetrical chest wall rise Resp Auscultation: diminished lung sounds bilateral and diffuse Cardio regular rate and regular rhythm Jugular Venous Distention: Negative for JVD GI soft to palpation, non-tender and non-distended; Negative for hepatosplenomegaly GI Narrative: PEG tube no CVA tenderness Back/Spine no thoracic nor lumbar tenderness Extremity General Extremity: edema left lower extremity; Negative for clubbing or cyanosis Skin no rashes or lesions noted Neuro oriented x3, CN's II-XII intact bilaterally and moves all extremities Neuro Narrative: Bilateral symmetric wasting of first interosseous muscles. Coordination / Balance: [id number] test normal Speech: speech abnormal Gait (Neuro): normal gait Psych mental status grossly normal, thought process normal, cooperative and affect normal Coding Level of Care Code Off vis,est,level 4 Diagnoses Head and neck cancer C76.0 Regional lymph node metastasis present C77.9 Lung nodules R91.8 Thrush, oral B37.0 SIADH (syndrome of inappropriate ADH production) E22.2 Assessment and Plan Assessment and Plan (1) Head and neck cancer: Status: Chronic (2) Regional lymph node metastasis present: (3) Lung nodules: Status: Chronic Comment: Stable for more than 2 years (4) Thrush, oral: (5) SIADH (syndrome of inappropriate ADH production): Status: Acute Plan - Dr. 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 Patient is status post tonsillectomies and uveal excision yet no primary identified. Received concomitant chemoradiation January through March 2019 tolerated with expected but no excessive toxicities. He is in complete remission now and is on surveillance with no evidence to suggest cancer recurrence. Residual posttreatment skin hyperpigmentation and induration in the neck area and dry mouth. Indeterminate too small to further characterize lung nodules on initial staging chest CT of November 2018 remains stable for 2 years on imaging through February 2021. 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 Restaging did not suggest systemic disease. October 2021 he underwent radical surgery. Received adjuvant combined modality therapy with radiation and weekly carboplatin chemosensitization November???January. Comorbid conditions: Smoking and excessive alcohol until the time of diagnosis of malignancy. He continued to smoke after the first line of therapy Plan: 1-concluded adjuvant combined modality therapy January 2022 and will go on surveillance 2- Diet, continue to slowly advance soft diet and weaning self of tube feed. 3. SIADH, on water restriction and salt by nephrology. Sodium improved to 129 mEq/L. No evidence for fluid overload. To follow-up with nephrology, Dr. Cuellar regarding duration of treatment 4. Elective imaging, will discuss with radiation oncology. 5. Follow-up in 3 months Impression and plan reviewed with patient . Quincy Simpson MD Environmental Services Floor Tech, [facility] Divisions of Medical Oncology Hematology Department of Internal Medicine [place] [phone] This note was generated using a voice recognition system software. Although it was reviewed by the author prior to finalization, it may still contain incorrect words, spelling, and punctuation that were not noted when reviewing prior to saving. If a clinically significant typo or inaccurately typed phrase is noted, please notify the author. 02/14/22 1108 <Electronically signed by Quincy Simpson MD> Date Quincy Simpson MD Cosigner Signature: Date (if applicable) CC: BOOTH CLEANERLulu Gonzalez; Dr. Santiago Sellers, DO Kya Gonzalez Work Phone: Start: 02-14-2022 End: 02-14-2022 Radiation Oncology Visit Comments: See Note; NOTES: [facility] [place] [address] OFFICE VISIT Date of Service: 02/14/22 1038 MR#: [id number] Acct: [id number] Name: MY JAMA Rep #: [id number] : 1960 From: Santiago Sellers DO Age/Sex: 61/M Location: [facility] [place] Status: Signed Intake Vital Signs 02/14/22 10:38 Weight: 127 lb 4 oz BP 107/61 Blood Pressure Location Lt brachial Position Sitting Respiration 17 Pulse 77 Pulse Source Monitor Temp 98.2 F Temperature Source Temporal Artery Pulse Oximetry (%) 100 Oxygen Delivery Method room air Intake Visit Reasons: two week f/u Chief Complaint: Recurrent head and neck cancer Is patient in pain?: No Allergies No Known Allergies Allergy (Verified 02/14/22 10:42) Medications Levothyroxine 125 mcg PO DAILY 08/25/20 [History Confirmed 02/14/22] pentoxifylline 400 mg tablet,extended release 400 mg PO TID #90 tab 05/17/21 [Rx Confirmed 02/14/22] vitamin E mixed 1,000 unit capsule 1,000 unit PO DAILY #30 cap 05/17/21 [Rx Confirmed 02/14/22] albuterol sulfate 1.25 mg INHALATION Q4H PRN #90 ml 12/10/21 [Rx Confirmed 02/14/22] amlodipine 5 mg PO DAILY 01/23/22 [History Confirmed 02/14/22] fluticasone propionate 1 spray INTRANASAL DAILY 01/23/22 [History Confirmed 02/14/22] sodium chloride 3 g PO BID #60 tab 01/25/22 [Rx Confirmed 02/14/22] silver sulfadiazine 1 % topical cream 1 applic TOPICAL BID #85 g 02/06/22 [Rx Confirmed 02/14/22] nystatin 100,000 unit/mL oral suspension 1 ml PO Q6H ml 02/14/22 [History Confirmed 02/14/22] PFSH PFSH Medical History Acid reflux Anemia Cancer related pain Cellulitis Difficulty swallowing Encounter for chemotherapy management Epigastric pain Hypertension malignant squamous cell carcinoma lt neck Mass of left side of neck peg tube removed Regional lymph node metastasis present Sleep disturbance 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 Thrush, oral Home Medications Levothyroxine 125 mcg PO DAILY 08/25/20 [History Last Taken Unknown] pentoxifylline 400 mg tablet,extended release 400 mg PO TID #90 tab 05/17/21 [Rx Last Taken Unknown] vitamin E mixed 1,000 unit capsule 1,000 unit PO DAILY #30 cap 05/17/21 [Rx Last Taken Unknown] albuterol sulfate 1.25 mg INHALATION Q4H PRN #90 ml 12/10/21 [Rx Last Taken Unknown] amlodipine 5 mg PO DAILY 01/23/22 [History Last Taken Unknown] fluticasone propionate 1 spray INTRANASAL DAILY 01/23/22 [History Last Taken Unknown] sodium chloride 3 g PO BID #60 tab 01/25/22 [Rx Last Taken Unknown] silver sulfadiazine 1 % topical cream 1 applic TOPICAL BID #85 g 02/06/22 [Rx Last Taken Unknown] nystatin 100,000 unit/mL oral suspension 1 ml PO Q6H ml 02/14/22 [History Last Taken Unknown] Allergy/AdvReac Type Severity Reaction Status Date / Time No Known Allergies Allergy Verified 02/14/22 10:42 Family History Mother CVA (cerebral vascular accident) Surgical History history of biopsy neck History of removal of Port-a-Cath Hx of tonsillectomy S/P percutaneous endoscopic gastrostomy (PEG) tube placement ( 01/26/19) s/p port placement ( 01/26/19) Social History Smoking Status: Former smoker quit date: 09/16/21 Tobacco: How many years used: 30 how long ago did patient quit smokin-4 months ago second hand exposure: Yes alcohol intake: former details: August 2021 substance use type: does not use seatbelt use: sometimes do you feel safe at home: Yes Diagnosis: My Jama is a 61-year-old male diagnosed with 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 From 02/10/2019 ??? 03/25/2019 he received definitive chemoradiation therapy consisting of 6996 cGy in 33 fractions with concurrent high dose cisplatin. 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 From 12/20/2021 ??? 02/06/2022 he received reirradiation with concurrent chemotherapy. History of Present Illness: 04/28/2018: Patient underwent EGD due to odynophagia. This demonstrated significant esophagitis in the distal esophagus measuring 1-2 cm in length. Biopsy was obtained. Duodenum and stomach appeared normal. Pathology demonstrated focal changes suggestive of reflux. 12/15/2018: Patient presented to with a left-sided lump involving his neck which was firm and nontender. This lesion was present for about 3-4 weeks. 12/17/2018: CT neck and chest was completed. There are a few small scattered pulmonary nodules present with the largest in the right upper lobe anterior segment measuring 5 mm with solid features and smooth margins. Recommended to have follow-up low-dose chest CT in 1 year for pulmonary nodule surveillance. There is a rim-enhancing centrally cystic mass distal to the angle of the mandible lateral to the hyoid cartilage along the anterior margin of the sternocleidomastoid muscle with wall thickness up to 4.9 mm. Process measures approximately 1.8 cm craniocaudal and 2 1.8 cm transverse and 2.9 cm AP. Posteriorly and deep to the SCM there is a 1.2 x 1.6 cm mildly enlarged lymph node and a few additional shotty lymph nodes present on the left. No evidence of cervical adenopathy on the right. Pharyngeal and laryngeal soft tissues appear normal. 12/22/2018: Ultrasound-guided FNA of the left neck mass was completed and pathology demonstrated malignant cells consistent with keratinizing squamous cell carcinoma with extensive necrosis, p16 negative. 12/31/2018: Evaluation by medical oncology. Recommended ENT evaluation with panendoscopy and PET/CT for staging. 01/02/2019: Patient was evaluated by ENT. On exam he was noted to have a large fixed left cervical radha conglomerate. Also noted was a 1 cm cystic lesion of the uvula. Otherwise oral and oropharyngeal mucosa were normal. Flexible laryngoscopy was performed which demonstrated no evidence of lesion. Small cystic lesion of the uvula was felt to be benign. 01/05/2019: PET scan was performed which demonstrated 2 separate nodular foci of increased glucose metabolism manifest in the left lateral neck level 3 generating a calculated maximum SUV of 8.6 with the larger soft tissue density demonstrating central photopenia in the largest corresponding lesion measured on CT is 2.8 cm x 3.5 cm. There is asymmetric increased FDG distribution defined in the left pharyngeal mucosal space generating a calculated maximum SUV of 3.4 with a maximum axial diameter of corresponding metabolic abnormality measuring 1.9 cm. There is no evidence of metastatic disease identified. Recommendation is to closely clinically evaluate the left pharyngeal area lesion for primary disease. 01/08/2019: Patient underwent dental extraction of numbers 7 through 13 and #14. 01/13/2019: Patient underwent dental extraction of #6 and 2 through 5, he also completed amalgam fillings of #21 through 22 and 28. Following this procedure he was confirmed to be cleared for radiation therapy. 01/26/2019: Patient underwent placement of PEG tube and port. 01/30/2019: Patient completed left tonsil excision and uvula excision. Pathology displayed no evidence of malignancy or high-grade squamous dysplasia. There was noted to be submucosal dilated minor salivary gland duct with oncocytic metaplasia in the uvula. From 02/10/2019 ??? 03/25/2019: Received 6996 cGy delivered to gross disease involving the left neck, 5940 cGy to the high risk mucosal sites (entire oropharynx) and high risk lymph node sites (left l evels 2-5), and 5412 cGy delivered to the low risk mucosal sites (nasopharynx, larynx, hypopharynx) bilateral high level 2, bilateral supraclavicular fossa, and right neck levels 2-5). Treatment was completed using dose painting IMRT and a single VMAT plan and he received concurrent chemotherapy with high dose cisplatin (cycle 1: 02/10, cycle 2: 03/02, cycle 3: 03/23). 05/13/2019: CT chest was performed. In comparison to the study in November 2018 there is persistent multifocal nodular pleural thickening or tiny pleural-based nodules in the lower lobes which are unchanged in size or number since the previous study. This measures 4 mm. 06/26/2019: Patient underwent swallow study and then had discussion with speech therapy. Recommendations are for a mechanical soft textured and thin liquid diet. Exercises and other strategies were recommended and speech therapy will continue to follow-up. 06/29/2019: PET scan was performed which demonstrated no definitive quantitative scintigraphic evidence of recurrent/metastatic viable neoplasm, overall when compared to the prior PET scan dated 01/05/2019 there is currently an absence of defined viable neoplastic disease with interval resolution of the primary defined hypermetabolic foci. 07/16/2019: Follow up with medical oncology. Plan for surveillance CT chest in 3 months to reassess nonspecific lung nodules. 03/30/2020: swallow study was performed. Recommendations are for regular/soft textured and thin liquid diet. 12/31/2019: Follow up with ENT. NPL showed no evidence of disease, epiglottic and arytenoid edema present. 04/06/2020: CT chest was performed and demonstrated bilateral pulmonary nodules which are stable since the prior exam. No other evidence of disease is identified. 09/02/2020: CT chest with contrast was performed. This demonstrated severely emphysematous lungs bilaterally with multiple scattered stable small nodules. No evidence of metastatic disease identified. 01/25/2021: Patient had removal of the remaining teeth lower teeth 21???28. Patient was treated with antibiotics for slowly healing fibrotic tissue. Patient is also being treated with Trental/vitamin E. 02/27/2021: CT chest was completed. This demonstrated stable findings including small scattered noncalcified nodules seen in both lungs. 08/23/2021: CT soft tissue neck with contrast was performed. This demonstrated evidence of bony destruction involving the mid anterior aspect of the mandible. The transverse dimension of the destruction measures 2.1 cm. There appears to be a 2.6 x 3.7 cm soft tissue mass overlying the anterior aspect of the midportion of the mandible, should rule out neoplastic process. No other abnormalities are appreciated. 10/11/2021: PET scan was performed. This demonstrated heterogeneous increased FDG distribution defined in the anterior midline mandible extending into the periosseous soft tissue anteriorly with a calculated max of SUV of 12 maximum diameter of 5.1 x 5.5 cm. No other quantitatively significant hypermetabolic abnormalities are noted. 11/07/2021: Patient underwent direct laryngoscopy, flexible bronchoscopy, flexible esophagoscopy, PEG tube placement, tracheostomy, composite resection of oral cavity, excision of skin and soft tissue measuring 8 x 9 cm, segmental mandibulectomy, right selective neck dissection of levels 1 through 4 and left neck exploration for vessels. Reconstruction was thigh free flap and had complex neck closure with split thickness skin graft. 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 There was skin invasion present. LVSI not identified. PNI present and focal. Right posterior floor of mouth mucosal margin is involved by invasive carcinoma, left posterior floor of mouth margin is involved by high-grade dysplasia/in situ disease. Right skin soft tissue margin is less than 1 mm, right oral soft tissue margin is 1.5 mm, posterior soft tissue margin is 2.5-3 mm. 3 lymph nodes were involved 2 involving the right level 1 and 1 involving the right level 4, largest deposit was 3 mm and no DEREK was noted. 11/09/2021. Postoperative course was complicated by arterial clotting and taken back to the OR for arterial release, flap checks were stable following the takeback. From 12/20/2021 ??? 02/06/2022: received reirradiation with weekly carboplatin consisting of 6600 cGy delivered to the area concerning for close/positive margin and 5940 cGy delivered to the flap based reconstruction and right neck levels 1 through 4. Radiation Treatment History: 1) From 02/10/2019 ??? 03/25/2019: Received 6996 cGy delivered to gross disease involving the left neck, 5940 cGy to the high risk mucosal sites (entire oropharynx) and high risk lymph node sites (left levels 2-5), and 5412 cGy delivered to the low risk mucosal sites (nasopharynx, larynx, hypopharynx) bilateral high level 2, bilateral supraclavicular fossa, and right neck levels 2-5). Treatment was completed using dose painting IMRT and a single VMAT plan and he received concurrent chemotherapy with high dose cisplatin (cycle 1: 02/10, cycle 2: 03/02, cycle 3: 03/23). 2) From 12/20/2021 ??? 02/06/2022: received reirradiation with weekly carboplatin consisting of 6600 cGy delivered to the area concerning for close/positive margin and 5940 cGy delivered to the flap based reconstruction and right neck levels 1 through 4. Interval History: Patient presents for routine follow-up approximately 2 weeks after completing reirradiation to the head and neck. He reports doing fairly well overall. He has mild pain which is mostly noticed at night and is taking oxycodone only at night for relief. He believes his skin has been healing fairly well, he still reports having some open areas beneath the flap, he is putting Silvadene cream where he has moist peeling and is using Luis Felipe. He does use rinses provided to him by ENT. He reports normal taste. He denies dry mouth. He is eating some soft foods but taking most of his nutrition via PEG using 3-4 cans/day. Weight has remained stable. He denies having any difficulty with his trach. He otherwise denies problems or concerns at this time. Review of Systems: A 12-point review of systems was completed and was negative except for what is noted in the HPI/Interval History and by the nurse. Physical Exam: Weight: 127 lbs 4 oz (weight at end of treatment 02/06/2022: 126 lbs 9 oz) ECO KARNOFSKY SCORE: 70% CONSTITUTIONAL: Well-developed, well-nourished, and in no apparent distress. HEENT: Mucous membranes moist. No evidence of thrush or lesions within the visualized oropharynx or oral cavity. Edentulous. No trismus. There is flap based reconstruction of the floor of mouth and anterior jaw/mandible as well as skin, there are open sores on the exterior of the flap abutting the neck, lips swollen but irritation in this area has resolved. Pupils are equal, round, and reactive to light and accommodation. Extraocular movements are intact. Sclerae are anicteric. NECK: Supple, no thyromegaly, and non-tender. Tracheostomy midline. No cervical or supraclavicular adenopathy noted. Very mild right neck skin erythema, no peeling. Fibrosis involving the left neck. CARDIAC: Regular rate and rhythm. Normal S1, S2. No murmurs, rubs, or gallops. PULMONARY/CHEST: Lungs are clear to auscultation and percussion bilaterally. No wheezes, rhonchi, or crackles noted. No increased work of breathing. ABDOMINAL: Abdomen soft, non-tender, non-distended. No hepatomegaly. Normoactive bowel sounds in all four quadrants. No guarding, rebound. PEG tube in place without abnormality BACK: Straight and aligned. No CVA tenderness. Axial skeleton non-tender to percussion. EXTREMITIES: Full range of motion in all four extremities. No evidence of edema. NEUROLOGICAL EXAM: Alert and oriented x 3. Answers questions and follows commands appropriately. Cranial nerves II through XII are grossly intact. No focal neurological deficit. Speech is fluent. Muscle strength is 5/5 in all muscle groups. Gait and posture without abnormality. PSYCHIATRIC: Appropriate mood and affect for the clinical situation. Imaging: As per HPI Laboratory Data: 02/14/2022: Hemoglobin 10.6, creatinine 0.38. 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 From 02/10/2019 ??? 03/25/2019 he received definitive chemoradiation therapy consisting of 6996 cGy in 33 fractions with concurrent high dose cisplatin. 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 From 12/20/2021 ??? 02/06/2022 he received reirradiation with concurrent chemotherapy. Plan: Patient returns for follow-up approximately 2 weeks after completing reirradiation with concurrent carboplatin for head and neck cancer. There is no evidence of disease on exam. He has improved from his initial posttreatment evaluation. He does still have slow wound healing of an open area at the inferior portion of his flap, this was present prior to radiation and he has been treated with antibiotics, currently using Vaseline and Silvadene. He is also taking Luis Felipe, this area has marginally improved. Otherwise skin erythema has greatly improved over the last 2 weeks. I reviewed skin care instructions and he was also seen by his ENT on Saturday who reviewed instructions for skin care. Continue cautiously advancing diet and continue close follow-up with speech therapy. I will have him return for routine follow-up in 2 weeks and he was instructed to call with any further questions or concerns in the interim. Thank you for allowing me to participate in the management and care of your patient. If I may answer any questions in the interim, please do not hesitate to contact me at any time. Santiago Sellers DO, MS Environmental Services Floor Tech, Department of Radiation Oncology [facility] Coding Level of Care Code Off vis,est,level 3 Diagnoses Floor of mouth squamous cell carcinoma C04.9 02/14/22 1112 <Electronically signed by Santiago Sellers DO> Date Santiago Sellers DO Cosigner Signature: Date (if applicable) CC: [employer] CLE[employer]ER-C Kya Gonzalez; Dr. 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 From 02/10/2019 ??? 03/25/2019 he received definitive chemoradiation therapy consisting of 6996 cGy in 33 fractions with concurrent high dose cisplatin. 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 Oncologic History: 04/28/2018: Patient underwent EGD due to odynophagia. This demonstrated significant esophagitis in the distal esophagus measuring 1-2 cm in length. Biopsy was obtained. Duodenum and stomach appeared normal. Pathology demonstrated focal changes suggestive of reflux. 12/15/2018: Patient presented to with a left-sided lump involving his neck which was firm and nontender. This lesion was present for about 3-4 weeks. 12/17/2018: CT neck and chest was completed. There are a few small scattered pulmonary nodules present with the largest in the right upper lobe anterior segment measuring 5 mm with solid features and smooth margins. Recommended to have follow-up low-dose chest CT in 1 year for pulmonary nodule surveillance. There is a rim-enhancing centrally cystic mass distal to the angle of the mandible lateral to the hyoid cartilage along the anterior margin of the sternocleidomastoid muscle with wall thickness up to 4.9 mm. Process measures approximately 1.8 cm craniocaudal and 2 1.8 cm transverse and 2.9 cm AP. Posteriorly and deep to the SCM there is a 1.2 x 1.6 cm mildly enlarged lymph node and a few additional shotty lymph nodes present on the left. No evidence of cervical adenopathy on the right. Pharyngeal and laryngeal soft tissues appear normal. 12/22/2018: Ultrasound-guided FNA of the left neck mass was completed and pathology demonstrated malignant cells consistent with keratinizing squamous cell carcinoma with extensive necrosis, p16 negative. 12/31/2018: Evaluation by medical oncology. Recommended ENT evaluation with panendoscopy and PET/CT for staging. 01/02/2019: Patient was evaluated by ENT. On exam he was noted to have a large fixed left cervical radha conglomerate. Also noted was a 1 cm cystic lesion of the uvula. Otherwise oral and oropharyngeal mucosa were normal. Flexible laryngoscopy was performed which demonstrated no evidence of lesion. Small cystic lesion of the uvula was felt to be benign. 01/05/2019: PET scan was performed which demonstrated 2 separate nodular foci of increased glucose metabolism manifest in the left lateral neck level 3 generating a calculated maximum SUV of 8.6 with the larger soft tissue density demonstrating central photopenia in the largest corresponding lesion measured on CT is 2.8 cm x 3.5 cm. There is asymmetric increased FDG distribution defined in the left pharyngeal mucosal space generating a calculated maximum SUV of 3.4 with a maximum axial diameter of corresponding metabolic abnormality measuring 1.9 cm. There is no evidence of metastatic disease identified. Recommendation is to closely clinically evaluate the left pharyngeal area lesion for primary disease. 01/08/2019: Patient underwent dental extraction of numbers 7 through 13 and #14. 01/13/2019: Patient underwent dental extraction of #6 and 2 through 5, he also completed amalgam fillings of #21 through 22 and 28. Following this procedure he was confirmed to be cleared for radiation therapy. 01/26/2019: Patient underwent placement of PEG tube and port. 01/30/2019: Patient completed left tonsil excision and uvula excision. Pathology displayed no evidence of malignancy or high-grade squamous dysplasia. There was noted to be submucosal dilated minor salivary gland duct with oncocytic metaplasia in the uvula. From 02/10/2019 ??? 03/25/2019: Received 6996 cGy delivered to gross disease involving the left neck, 5940 cGy to the high risk mucosal sites (entire oropharynx) and high risk lymph node sites (left levels 2-5), and 5412 cGy delivered to the low risk mucosal sites (nasopharynx, larynx, hypopharynx) bilateral high level 2, bilateral supraclavicular fossa, and right neck levels 2-5). Treatment was completed using dose painting IMRT and a single VMAT plan and he received concurrent chemotherapy with high dose cisplatin (cycle 1: 02/10, cycle 2: 03/02, cycle 3: 03/23). 05/13/2019: CT chest was performed. In comparison to the study in November 2018 there is persistent multifocal nodular pleural thickening or tiny pleural-based nodules in the lower lobes which are unchanged in size or number since the previous study. This measures 4 mm. 06/26/2019: Patient underwent swallow study and then had discussion with speech therapy. Recommendations are for a mechanical soft textured and thin liquid diet. Exercises and other strategies were recommended and speech therapy will continue to follow-up. 06/29/2019: PET scan was performed which demonstrated no definitive quantitative scintigraphic evidence of recurrent/metastatic viable neoplasm, overall when compared to the prior PET scan dated 01/05/2019 there is currently an absence of defined viable neoplastic disease with interval resolution of the primary defined hypermetabolic foci. 07/16/2019: Follow up with medical oncology. Plan for surveillance CT chest in 3 months to reassess nonspecific lung nodules. 03/30/2020: swallow study was performed. Recommendations are for regular/soft textured and thin liquid diet. 12/31/2019: Follow up with ENT. NPL showed no evidence of disease, epiglottic and arytenoid edema present. 04/06/2020: CT chest was performed and demonstrated bilateral pulmonary nodules which are stable since the prior exam. No other evidence of disease is identified. 09/02/2020: CT chest with contrast was performed. This demonstrated severely emphysematous lungs bilaterally with multiple scattered stable small nodules. No evidence of metastatic disease identified. 01/25/2021: Patient had removal of the remaining teeth lower teeth 21???28. Patient was treated with antibiotics for slowly healing fibrotic tissue. Patient is also being treated with Trental/vitamin E. 02/27/2021: CT chest was completed. This demonstrated stable findings including small scattered noncalcified nodules seen in both lungs. 08/23/2021: CT soft tissue neck with contrast was performed. This demonstrated evidence of bony destruction involving the mid anterior aspect of the mandible. The transverse dimension of the destruction measures 2.1 cm. There appears to be a 2.6 x 3.7 cm soft tissue mass overlying the anterior aspect of the midportion of the mandible, should rule out neoplastic process. No other abnormalities are appreciated. 10/11/2021: PET scan was performed. This demonstrated heterogeneous increased FDG distribution defined in the anterior midline mandible extending into the periosseous soft tissue anteriorly with a calculated max of SUV of 12 maximum diameter of 5.1 x 5.5 cm. No other quantitatively significant hypermetabolic abnormalities are noted. 11/07/2021: Patient underwent direct laryngoscopy, flexible bronchoscopy, flexible esophagoscopy, PEG tube placement, tracheostomy, composite resection of oral cavity, excision of skin and soft tissue measuring 8 x 9 cm, segmental mandibulectomy, right selective neck dissection of levels 1 through 4 and left neck exploration for vessels. Reconstruction was thigh free flap and had complex neck closure with split thickness skin graft. 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 There was skin invasion present. LVSI not identified. PNI present and focal. Right posterior floor of mouth mucosal margin is involved by invasive carcinoma, left posterior floor of mouth margin is involved by high-grade dysplasia/in situ disease. Right skin soft tissue margin is less than 1 mm, right oral soft tissue margin is 1.5 mm, posterior soft tissue margin is 2.5-3 mm. 3 lymph nodes were involved 2 involving the right level 1 and 1 involving the right level 4, largest deposit was 3 mm and no DEREK was noted. 11/09/2021. Postoperative course was complicated by arterial clotting and taken back to the OR for arterial release, flap checks were stable following the takeback. Radiation Treatment History: 1) From 02/10/2019 ??? 03/25/2019: Received 6996 cGy delivered to gross disease involving the left neck, 5940 cGy to the high risk mucosal sites (entire oropharynx) and high risk lymph node sites (left levels 2-5), and 5412 cGy delivered to the low risk mucosal sites (nasopharynx, larynx, hypopharynx) bilateral high level 2, bilateral supraclavicular fossa, and right neck levels 2-5). Treatment was completed using dose painting IMRT and a single VMAT plan and he received concurrent chemotherapy with high dose cisplatin (cycle 1: 02/10, cycle 2: 03/02, cycle 3: 03/23). The patient completed a course of external beam reirradiation in our department. This treatment was delivered for curative intent. Treatment was given according to the following parameters: MY JAMA received 6600 cGy delivered to the area concerning for close/positive margin and 5940 cGy delivered to the flap based reconstruction and right neck levels 1 through 4. He was treated with a simultaneous integrated boost technique using VMAT planning with 6 MV photons. The patient did receive concurrent chemotherapy with weekly carboplatin. Date of First Treatment: 12/20/2021 Date of Last Treatment: 02/06/2022 Total Elapsed Days (including weekend and holidays): 48 Missed Treatments: 2 treatments due to machine being down Response and Tolerance: The patient tolerated this course of radiotherapy well overall. The following radiation related toxicities developed during the course of radiation therapy: * Grade 2 skin erythema with dry desquamation and patchy moist desquamation. Significant scabbing developed around the flap prior to starting therapy and clearance to begin was given by ENT. Treated to oral antibiotics, Aquaphor, Silvadene, and Luis Felipe. * Dysgeusia * Thrush developed and was successfully treated with nystatin * 2-3/10 pain in surgical area * Split nutrition intake between PO and PEG Total weight change during therapy: 2 lb weight gain At the end of therapy the physical examination showed no evidence of gross disease. Disposition: The patient tolerated the planned course of radiation therapy well without unexpected toxicity in an appropriate time course. I reviewed management of potential toxicities and discussed expected timing for toxicity resolution. I will have MY follow-up in two weeks for a routine visit. MY will maintain follow up with all other providers. MY was instructed to call with any further questions or concerns in the interim. If we can provide any further information on this patient's course of care, please do not hesitate to ask. We would like to thank you very much for allowing us to participate in the care of this patient. Sincerely, Santiago Sellers DO, MS Environmental Services Floor Tech, Department of Radiation Oncology [facility] 02/06/22 9368 <Electronically signed by Santiago Sellers DO> Date Santiago Verito DO Cosigner Signature: Date (if applicable) CC: YARI Gonzalez; Dr. Quincy Simpson MD; MD Kya Agustin Work Phone: Start: 01-31-2022 End: 01-31-2022 Radiation Oncology Visit Comments: See Note; NOTES: [facility] [address] [place] [address] OFFICE VISIT Date of Service: 01/31/22846 MR#: [id number] Acct: [id number] Name: MY JAMA Rep #: [id number] : 1960 From: Santiago Sellers DO Age/Sex: 61/M Location: [facility] [place] Status: Signed Intake Intake Visit Reasons: OTV Is patient in pain?: No Allergies No Known Allergies Allergy (Verified 01/31/22 08:38) PFSH PFSH Medical History Acid reflux Anemia Cancer related pain Cellulitis Difficulty swallowing Encounter for chemotherapy management Epigastric pain Hypertension malignant squamous cell carcinoma lt neck Mass of left side of neck peg tube removed Sleep disturbance Allergy/AdvReac Type Severity Reaction Status Date / Time No Known Allergies Allergy Verified 01/31/22 08:38 Family History Mother CVA (cerebral vascular accident) Surgical History history of biopsy neck History of removal of Port-a-Cath Hx of tonsillectomy S/P percutaneous endoscopic gastrostomy (PEG) tube placement ( 01/26/19) s/p port placement ( 01/26/19) Social History Smoking Status: Former smoker quit date: 09/16/21 Tobacco: How many years used: 30 how long ago did patient quit smokin-4 months ago second hand exposure: Yes alcohol intake: former details: August 2021 substance use type: does not use seatbelt use: sometimes do you feel safe at home: Yes Diagnosis: My Jama is a 61-year-old male diagnosed with 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 From 02/10/2019 ??? 03/25/2019 he received definitive chemoradiation therapy consisting of 6996 cGy in 33 fractions with concurrent high dose cisplatin. 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 Plan: Plan was made to complete reirradiation with concurrent chemotherapy consisting of 6600 cGy delivered to the area concerning for close/positive margin and 5940 centigrade delivered to the flap based reconstruction and right neck levels 1 through 4. Treatment Data: Treatment Site: Oral Cavity/Right neck Current total dose/Total dose planned: 6200 cGy / 6600 cGy Fraction number: Chemotherapy: weekly carboplatin (stopped after 5 cycles) Subjective: Pain: 2-3 / 10, jaw and leg (flap donor site). Fatigue: none ENT: mild mucositis. No odynophagia or dysphagia. Normal mostly taste, Xerostomia at baseline, using rinses Skin: Mild erythema. Significant scabbing around flap, Finished 7 day course Keflex, still same and using vasaline. Scabbing as compared to last week is mostly stable. There is no open wounds Nutrition/weight: Weight stable. Small volume mostly soft diet by mouth. 6-7 TFs per day Rinses: doing baking soda/salt rises. doing green tea rinses. Respiratory: no cough, SOB Objective: Weight: 125 lbs Physical Exam: Gen: NAD ENT: no mucositis. No thrush. No visualized lesions in the oral cavity or oropharynx. Well healed flap based reconstruction. Skin: moderate erythema. no rash. Left neck with fibrosis. Significant scabbing around flap and involving neck incision. Eschar and mild surrounding erythema. 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 I reviewed and approved all treatment associated imaging. Possibly post surgical cellulitis of flap and neck incision, Finished antibiotics. Appears unchanged. using vasaline, saw surgeon last week, will monitor and complete treatment Skin; grade 1 erythema Thrush treated with nystatin, resolved Pain: mild Plan: Continue treatment as planned. Will complete Saturday I have reviewed potential treatment associated toxicities as well as timing for resolution and management. Skin: Skin care reviewed, continue lotion at least bid, vasaline on scabbing per ENT, recommended Luis Felipe, referral to wound clinic Pain: mild, continue oxycodone qd - bid Nutrition: mostly via PEG, continue follow up, weight stable to slightly decreased [employer] REGISTERED NURSE: continue following during XRT Rinses: continue recommended baking soda/salt rinses 4-6/d, green tea rinses 2-3/d Follow up in 2 weeks or sooner if needed. Thank you for allowing me to participate in the management and care of your patient. If I may answer any questions in the interim, please do not hesitate to contact me at any time. 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 C41.1 01/31/22 1016 <Electronically signed by Santiago Sellers DO> Date Santiago Sellers DO Cosigner Signature: Date (if applicable) CC: Kya Gonzalez Work Phone: Start: 01-31-2022 End: 01-31-2022 Oncology Visit Report Comments: See Note; NOTES: [facility] [address] [place] [address] OFFICE VISIT Date of Service: 01/31/22829 MR#: [id number] Acct: [id number] Name: MY JAMA Rep #: [id number] : 1960 From: Quincy Simpson MD Age/Sex: 61/M [place] [facility] Status: Signed HPI Subjective Date of Service 01/31/22 Chief Complaint Recurrent head and neck cancer History of Present Illness 61-year-old male Ex-smoker and heavy alcohol user who presented with a painless left neck mass that progressively increased in size over the course of the past couple of months. December 17, 2018 CT soft tissues of the neck: FINDINGS: There is a rim-enhancing centrally cystic mass distal to the angle the mandible, lateral to the hyoid cartilage, along the anterior margin of the sternocleidomastoid muscle. Wall thickness up to 4.9 mm. Process measures approximately 1.8 cm craniocaudal, 1.8 cm transverse, 2.9 cm anterior-posterior. Posteriorly and deep to the sternomastoid muscle, single mildly enlarged lymph node measuring 1.2 x 1.6 cm. A few additional shotty lymph nodes are present on the left. Normal thyroid. Normal submandibular glands and parotid glands. There is no right cervical lymphadenopathy. Pharyngeal and laryngeal soft tissues appear normal. Multilevel cervical spondylosis with disc disease most notable at C5-C6 with uncovertebral joint hypertrophy contributing to mild foraminal narrowing. Mucoperiosteal thickening and mucous retention cysts of the maxillary sinuses. Solitary opacified posterior right ethmoid sinus. Mastoid air cells and middle ear cavities clear. 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 December 17, 2018 CT chest: FINDINGS: Supraclavicular: No acute process within the [id number]. Body wall soft tissues: No acute process. Upper abdomen: No acute process. Osseous structures: No acute process. Mild scoliosis, moderate kyphosis, mild multilevel thoracic spondylosis. Mediastinum: No acute process. Cardiovascular: No acute process. Lungs: A few small scattered pulmonary nodules are present. The largest is in the right upper lobe anterior segment, series 6 image 73, 5 cm, solid features, smooth margins. Unremarkable airways. IMPRESSION: No acute thoracic process is evident. Small pulmonary nodules. The largest measures approximately 5 mm. Follow-up low-dose CT chest is recommended in 1 year for pulmonary nodule surveillance purposes. December 22, 2018 DIAGNOSIS CYTOLOGY A. 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 See comment. B. 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 ANTIBODY / CLONE RESULT Block A AE1-3 (AE1/AE3/PCK26) positive CK7 (OV-TL12/30) negative CK8 (67oegcI60) positive, weak CK20 (KS20.8) negative TTF-1 (8G7G3/1) negative Napsin A (Rabbit Polyclonal) negative HepPar (OCh1E5) negative RCC (PN-15) negative PSAP (PASE/4LJ) negative CK5-6 (D5 1684) positive P16 (E6H4) negative P40 (BC28) positive, focal January 02, 2019: Patient was evaluated by ENT : oral and oropharyngeal mucosa were normal. Flexible laryngoscopy was performed which demonstrated no evidence of lesion. Small cystic lesion of the uvula was felt to be benign. January 05, 2019 PET/CT: IMPRESSION: 1. ABNORMAL EXAMINATION INDICATIVE OF MALIGNANT-VIABLE NEOPLASM. 2. Increased glucose concentration observed in the left lateral neck fulfills quantitative criteria for viable neoplasm. 3. Asymmetric enhanced FDG distribution noted in the left pharyngeal mucosal space may be further investigated with rigorous clinical examination. 4. No other quantitatively significant hypermetabolic abnormalities are noted. There is no definitive scintigraphic evidence of distant metastatic disease. January 30, 2019: left tonsil excision and uvula excision. Pathology displayed no evidence of malignancy or high-grade squamous dysplasia. There was noted to be submucosal dilated minor salivary gland duct with oncocytic metaplasia in the uvula. In preparation for locoregional combined chemoradiation patient Patient underwent multiple dental extractions, placement of PEG tube and port. February 10 through March 25, 2019 combined modality therapy (see below for details) May 13, 2019: CT chest: Comparison is made with prior study in December 17, 2018 There is persistent multifocal nodular pleural thickening or tiny pleural-based nodules in the lower lobes which are unchanged in size or number since previous study. The dominant nodule in the right lower lobe is not changed appreciably in size since prior exam June 29, 2019 PET/CT: IMPRESSION: 1. NEGATIVE EXAMINATION. There is no definitive quantitative scintigraphic evidence of recurrent-metastatic viable neoplasm. 2. There is interval metabolic resolution of the previously identified left lateral neck and left pharyngeal mucosal space hypermetabolic abnormalities. 3. Overall, compared to the prior FDG PET study dated 01/05/19, there is current absence of defined viable neoplastic disease with interval resolution of the prior defined hypermetabolic foci, as articulated above. October 07, 2019 CT chest: IMPRESSION: Normal enhanced CT Chest examination. April 06, 2020 CT chest: IMPRESSION: 1. Bilateral pulmonary nodules, stable in the interval. Appropriate follow-up using Fleischner Society criteria is recommended. 2. Dilatation of the main pulmonary artery measuring up to 3.2 cm in diameter. This may be associated with pulmonary hypertension. 3. Increased thoracic kyphosis. Diffuse endplate spondylosis of the visualized cervical, thoracic, and lumbar spine. No lytic or blastic osseous changes are seen. September 02, 2020 CT chest: FINDINGS: Lungs are severely emphysematous with multiple scattered stable nodules. There is a new small, 3 mm nodule in the anterior segment of the right upper lobe, image 36/136 series #4. Remainder of the nodules are stable since priors and are all less than 5 mm and low risk appearing. Additional 1 -- 2 mm nodules are present and are too small to reliably characterize between the current and prior scan due to differences in technique, inspiration, etc. Central airways are patent. Pleural surfaces are intact. Mediastinal contents are normal. Cardiac chambers are normal in size and shape. Pericardium is normal. Osseous structures are intact with exaggerated lower thoracic kyphosis without osseous lesions. Upper abdominal structures are normal. IMPRESSION: 1. Severe emphysema. 2. Multiple low risk and stable over many nodules. CT chest February 27, 2021 IMPRESSION: Stable examination. Stable emphysematous changes. CT neck August 23, 2021: demonstrated evidence of bony destruction involving the mid anterior aspect of the mandible. The transverse dimension of the destruction measures 2.1 cm. There appears to be a 2.6 x 3.7 cm soft tissue mass overlying the anterior aspect of the midportion of the mandible, should rule out neoplastic process. No other abnormalities are appreciated. PET/CT restaging October 11, 2021: demonstrated heterogeneous increased FDG distribution defined in the anterior midline mandible extending into the periosseous soft tissue anteriorly with a calculated max of SUV of 12 maximum diameter of 5.1 x 5.5 cm. No other quantitatively significant hypermetabolic abnormalities are noted. November 07, 2021 direct laryngoscopy, flexible bronchoscopy, flexible esophagoscopy, PEG tube placement, tracheostomy, composite resection of oral cavity, excision of skin and soft tissue measuring 8 x 9 cm, segmental mandibulectomy, right selective neck dissection of levels 1 through 4 and left neck exploration with reconstruction with thigh free flap and had complex neck closure with split thickness skin graft. 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 There was skin invasion present. LVSI not identified. PNI present and focal. Right posterior floor of mouth mucosal margin is involved by invasive carcinoma, left posterior floor of mouth margin is involved by high-grade dysplasia/in situ disease. Right skin soft tissue margin is less than 1 mm, right oral soft tissue margin is 1.5 mm, posterior soft tissue margin is 2.5-3 mm. 3 lymph nodes were involved 2 involving the right level 1 and 1 involving the right level 4, largest deposit was 3 mm and no DEREK was noted. November 09, 2021 postoperative course was complicated by arterial clotting and taken back to the OR for arterial release, flap checks were stable following the takeback. Treatment summary: * Combined high-dose cisplatin and radiation January through March 2019: 6996 cGy delivered to gross disease involving the left neck, 5940 cGy to the high risk mucosal sites (entire oropharynx) and high risk lymph node sites (left levels 2-5), and 5412 cGy delivered to the low risk mucosal sites (nasopharynx, larynx, hypopharynx) bilateral high level 2, bilateral supraclavicular fossa, and right neck levels 2-5). The patient did receive concurrent chemotherapy with high dose cisplatin (cycle 1: 02/10, cycle 2: 03/02, cycle 3: 03/23). Date of First Treatment: 02/10/2019 Date of Last Treatment: 03/25/2019 * November 07, 2021 direct laryngoscopy, flexible bronchoscopy, flexible esophagoscopy, PEG tube placement, tracheostomy, composite resection of oral cavity, excision of skin and soft tissue measuring 8 x 9 cm, segmental mandibulectomy, right selective neck dissection of levels 1 through 4 and left neck exploration with reconstruction with thigh free flap and had complex neck closure with split thickness skin graft. * Adjuvant concurrent chemoradiation with carboplatin AUC 2 (first 5 weeks) december 20, 2021-January 2022 . Interval History Hospitalized January 22 through 2021 with a respiratory tract infection and hyponatremia attributed to SIADH. [facility] Medical History Acid reflux Anemia Cancer related pain Cellulitis Difficulty swallowing Encounter for chemotherapy management Epigastric pain Hypertension malignant squamous cell carcinoma lt neck Mass of left side of neck peg tube removed Sleep disturbance Surgical History history of biopsy neck History of removal of Port-a-Cath Hx of tonsillectomy S/P percutaneous endoscopic gastrostomy (PEG) tube placement ( 01/26/19) s/p port placement ( 01/26/19) Family History Mother CVA (cerebral vascular accident) Social History Smoking Status: Former smoker quit date: 09/16/21 Tobacco: How many years used: 30 how long ago did patient quit smokin-4 months ago second hand exposure: Yes alcohol intake: former details: August 2021 substance use type: does not use seatbelt use: sometimes do you feel safe at home: Yes ROS Constitutional Constitutional: Reports systems reviewed and no addt'l complaints, except as documented, fatigue and other Details: Able to do ADL independently ; Denies anorexia, fever(s) or weight loss Eyes Eyes: Reports systems reviewed and no addt'l complaints, except as documented; Denies change in vision ENT HEENT: Reports systems reviewed and no addt'l complaints, except as documented, dry mouth, dysphagia, hearing loss, hoarseness and other Details: Dysphagia is improving and he is advancing soft diet ; Denies mouth lesions or mouth pain Cardiovascular Cardiovascular: Reports systems reviewed and no addt'l complaints, except as documented; Denies chest pain with activity or edema Respiratory/Chest Respiratory/Chest: Reports systems reviewed and no addt'l complaints, except as documented and cough; Denies dyspnea or hemoptysis Gastrointestinal Gastrointestinal: Reports systems reviewed and no addt'l complaints, except as documented; Denies change in bowel habits, hematochezia or melena Genitourinary Genitourinary: Reports systems reviewed and no addt'l complaints, except as documented; Denies hematuria Musculoskeletal Musculoskeletal: Reports systems reviewed and no addt'l complaints, except as documented; Denies arthralgias Integumentary Integumentary: Reports systems reviewed and no addt'l complaints, except as documented; Denies rash Neurologic Neurologic: Reports systems reviewed and no addt'l complaints, except as documented; Denies headache(s) Psychiatric Psychiatric: Reports systems reviewed and no addt'l complaints, except as documented Endocrine Endocrinology: Reports systems reviewed and no addt'l complaints, except as documented Hematologic/Lymphatic Hematologic/Lymphatic: Reports systems reviewed and no addt'l complaints, except as documented; Denies easy bleeding, easy bruising or lymphadenopathy Allergic/Immunologic Allergic/Immunologic: Reports systems reviewed and no addt'l complaints, except as documented Intake Vital Signs 01/31/22 08:40 Height 5 ft 6 in Weight: 56.756 kg BMI 20.2 BP 119/69 Blood Pressure Location Rt brachial Position Sitting Respiration 18 Pulse 66 Pulse Source Monitor Temp 97.7 F L Temperature Source Temporal Artery Pulse Oximetry (%) 99 Oxygen Delivery Method room air Intake Is patient in pain?: No Allergies No Known Allergies Allergy (Verified 01/31/22 08:38) Medications Levothyroxine 125 mcg PO DAILY 08/25/20 [History Confirmed 01/31/22] pentoxifylline 400 mg tablet,extended release 400 mg PO TID #90 tab 05/17/21 [Rx Confirmed 01/31/22] vitamin E mixed 1,000 unit capsule 1,000 unit PO DAILY #30 cap 05/17/21 [Rx Confirmed 01/31/22] albuterol sulfate 1.25 mg INHALATION Q4H PRN #90 ml 12/10/21 [Rx Confirmed 01/31/22] amlodipine 5 mg PO DAILY 01/23/22 [History Confirmed 01/31/22] fluticasone propionate 1 spray INTRANASAL DAILY 01/23/22 [History Confirmed 01/31/22] oxycodone 5 mg capsule 5 mg PO BID PRN 21 Days #42 cap 01/24/22 [Rx Confirmed 01/31/22] sodium chloride 3 g PO BID #60 tab 01/25/22 [Rx Confirmed 01/31/22] Central Venous Access Central Venous Access: No CBC, BMP January 31, 2022 reviewed in EMR Exam Physical Exam Narrative ECOG 1 Hard of hearing Const alert, oriented x3 and no apparent distress General Appearance: cooperative and comfortable HEENT normocephalic HEENT Narrative: Reconstruction of the lower face, soft tissue edema Mouth: No thrush Eyes General Eye: normal appearance of both eyes Conjunctiva: conjunctiva normal Sclera: sclera normal Neck no lymphadenopathy and no JVD Neck Narrative: Postoperative changes including flap. There is residual tissue edema General: tracheostomy present Lymph Lymphatic: no lymphadenopathy noted Chest Chest: symmetrical chest wall rise Resp Auscultation: diminished lung sounds bilateral and diffuse Cardio regular rate and regular rhythm Jugular Venous Distention: Negative for JVD GI soft to palpation, non-tender and non-distended; Negative for hepatosplenomegaly GI Narrative: PEG tube no CVA tenderness Back/Spine no thoracic nor lumbar tenderness Extremity General Extremity: edema left lower extremity; Negative for clubbing or cyanosis Skin no rashes or lesions noted Neuro oriented x3, CN's II-XII intact bilaterally and moves all extremities Neuro Narrative: Bilateral symmetric wasting of first interosseous muscles. Coordination / Balance: [id number] test normal Speech: speech abnormal Gait (Neuro): normal gait Psych mental status grossly normal, thought process normal, cooperative and affect normal Coding Level of Care Code Off vis,est,level 4 Diagnoses Head and neck cancer C76.0 Regional lymph node metastasis present C77.9 Lung nodules R91.8 Thrush, oral B37.0 SIADH (syndrome of inappropriate ADH production) E22.2 Assessment and Plan Assessment and Plan (1) Head and neck cancer: Status: Chronic (2) Regional lymph node metastasis present: Status: Chronic (3) Lung nodules: Status: Chronic Comment: Stable for more than 2 years (4) Thrush, oral: Status: Acute (5) SIADH (syndrome of inappropriate ADH production): Status: Acute Plan - Dr. 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 Patient is status post tonsillectomies and uveal excision yet no primary identified. Received concomitant chemoradiation January through March 2019 tolerated with expected but no excessive toxicities. He is in complete remission now and is on surveillance with no evidence to suggest cancer recurrence. Residual posttreatment skin hyperpigmentation and induration in the neck area and dry mouth. Indeterminate too small to further characterize lung nodules on initial staging chest CT of November 2018 remains stable for 2 years on imaging through February 2021. 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 Restaging did not suggest systemic disease. October 2021 he underwent radical surgery. Received adjuvant combined modality therapy with radiation and weekly carboplatin chemosensitization November???January. Comorbid conditions: Smoking and excessive alcohol until the time of diagnosis of malignancy. He continued to smoke after the first line of therapy Plan: 1-will conclude radiation this week. 2-oral thrush, improved on nystatin. Continue until finished with oral antibiotic course for respiratory tract infection 3. Pain, improving continue oxycodone as needed. 4. Diet, continue to slowly advance soft diet and weaning self of tube feed. 5. SIADH, on water restriction and salt by nephrology. Will watch for development of any fluid overload. 6. Follow-up in 2 weeks Impression and plan reviewed with patient . Quincy Simpson MD Environmental Services Floor Tech, [facility] Divisions of Medical Oncology Hematology Department of Internal Medicine [place] [phone] This note was generated using a voice recognition system software. Although it was reviewed by the author prior to finalization, it may still contain incorrect words, spelling, and punctuation that were not noted when reviewing prior to saving. If a clinically significant typo or inaccurately typed phrase is noted, please notify the author. 01/31/22 0933 <Electronically signed by Quincy Simpson MD> Date Quincy Manley Signature: Date (if applicable) CC: Kya Gonzalez Work Phone: Start: 01-24-2022 End: 01-24-2022 Radiation Oncology Visit Comments: See Note; NOTES: [facility] [address] [place] [address] OFFICE VISIT Date of Service: 01/24/22 1029 MR#: [id number] Acct: [id number] Name: MY JAMA Rep #: [id number] : 1960 From: Santiago Verito REN Age/Sex: 61/M [place] [facility] Status: Signed Intake Vital Signs 01/24/22 10:30 Height 5 ft 6 in Weight: 122 lb 3 oz BMI 19.7 BP 101/61 Blood Pressure Location Rt brachial Position Sitting Respiration 16 Pulse 73 Pulse Source Monitor Temp 98.1 F Temperature Source Temporal Artery Pulse Oximetry (%) 95 Oxygen Delivery Method room air Intake Visit Reasons: OTV Is patient in pain?: Yes (head/neck) Pain scale (1-10): 3 Allergies No Known Allergies Allergy (Verified 01/24/22 10:30) Medications Levothyroxine 125 mcg PO DAILY 08/25/20 [History Confirmed 01/24/22] pentoxifylline 400 mg tablet,extended release 400 mg PO TID #90 tab 05/17/21 [Rx Confirmed 01/24/22] vitamin E mixed 1,000 unit capsule 1,000 unit PO DAILY #30 cap 05/17/21 [Rx Confirmed 01/24/22] albuterol sulfate 1.25 mg INHALATION Q4H PRN #90 ml 12/10/21 [Rx Confirmed 01/24/22] amlodipine 5 mg PO DAILY 01/23/22 [History Confirmed 01/24/22] fluticasone propionate [Flonase] 1 spray INTRANASAL DAILY 01/23/22 [History Confirmed 01/24/22] oxycodone 5 mg capsule 5 mg PO BID PRN 21 Days #42 cap 01/24/22 [Rx Confirmed 01/24/22] PFSH PFSH Medical History Acid reflux Anemia Cancer related pain Cellulitis Difficulty swallowing Encounter for chemotherapy management Epigastric pain Hypertension malignant squamous cell carcinoma lt neck Mass of left side of neck peg tube removed Sleep disturbance Home Medications Levothyroxine 125 mcg PO DAILY 08/25/20 [History Last Taken Unknown] pentoxifylline 400 mg tablet,extended release 400 mg PO TID #90 tab 05/17/21 [Rx Last Taken Unknown] vitamin E mixed 1,000 unit capsule 1,000 unit PO DAILY #30 cap 05/17/21 [Rx Last Taken Unknown] albuterol sulfate 1.25 mg INHALATION Q4H PRN #90 ml 12/10/21 [Rx Last Taken Unknown] amlodipine 5 mg PO DAILY 01/23/22 [History Last Taken Unknown] fluticasone propionate [Flonase] 1 spray INTRANASAL DAILY 01/23/22 [History Last Taken Unknown] oxycodone 5 mg capsule 5 mg PO BID PRN 21 Days #42 cap 01/24/22 [Rx Last Taken Unknown] Allergy/AdvReac Type Severity Reaction Status Date / Time No Known Allergies Allergy Verified 01/24/22 10:30 Family History Mother CVA (cerebral vascular accident) Surgical History history of biopsy neck History of removal of Port-a-Cath Hx of tonsillectomy S/P percutaneous endoscopic gastrostomy (PEG) tube placement ( 01/26/19) s/p port placement ( 01/26/19) Social History Smoking Status: Former smoker quit date: 09/16/21 Tobacco: How many years used: 30 how long ago did patient quit smokin-4 months ago second hand exposure: Yes alcohol intake: former details: August 2021 substance use type: does not use seatbelt use: sometimes do you feel safe at home: Yes Diagnosis: My Jama is a 61-year-old male diagnosed with 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 From 02/10/2019 ??? 03/25/2019 he received definitive chemoradiation therapy consisting of 6996 cGy in 33 fractions with concurrent high dose cisplatin. 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 Plan: Plan was made to complete reirradiation with concurrent chemotherapy consisting of 6600 cGy delivered to the area concerning for close/positive margin and 5940 centigrade delivered to the flap based reconstruction and right neck levels 1 through 4. Treatment Data: Treatment Site: Oral Cavity/Right neck Current total dose/Total dose planned: 5200 cGy / 6600 cGy Fraction number: Chemotherapy: weekly carboplatin Subjective: Pain: 2-3 / 10, jaw and leg (flap donor site); patient is eating foods such as yogurt daily but most of his nutrition is via his feeding tube. Fatigue: none ENT: mild mucositis. No odynophagia or dysphagia. Normal mostly taste, Xerostomia at baseline, using rinses Skin: Mild erythema. Significant scabbing around flap, Finished 7 day course Keflex, still same and using vasaline. Scabbing as compared to last week is stable. There is no open wounds Nutrition/weight: Weight stable. Small volume mostly soft diet by mouth. 6-7 TFs per day Rinses: doing baking soda/salt rises. doing green tea rinses. Respiratory: no cough, SOB Objective: Weight: 125 lbs Physical Exam: Gen: NAD ENT: no mucositis. No thrush. No visualized lesions in the oral cavity or oropharynx. Well healed flap based reconstruction. Skin: no erythema, rash, desquamation. Left neck with fibrosis. Significant scabbing around flap and involving neck incision. 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 I reviewed and approved all treatment associated imaging. Possibly post surgical cellulitis of flap and neck incision, Finished antibiotics. Appears unchanged. using vasaline, saw surgeon last week, will monitor and complete treatment Skin; grade 1 erythema Thrush treated with nystatin, resolved Pain: mild Plan: Continue treatment as planned. I have reviewed potential treatment associated toxicities as well as timing for resolution and management. Skin: Skin care reviewed, continue lotion at least bid, vasaline on scabbing per ENT, will see ENT next week Pain: mild, continue oxycodone qd - bid Nutrition: mostly via PEG, continue follow up, weight stable to slightly decreased ADVANCED PRACTICE REGISTERED NURSE: continue following during XRT Rinses: continue recommended baking soda/salt rinses 4-6/d, green tea rinses 2-3/d Follow up next week or sooner if needed. Thank you for allowing me to participate in the management and care of your patient. If I may answer any questions in the interim, please do not hesitate to contact me at any time. 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 C41.1 01/24/22 1059 <Electronically signed by Santiago Sellers DO> Date Santiago Sellers DO Cosigner Signature: Date (if applicable) CC: Kya Josefameganchioma Work Phone: Start: 01-22-2022 End: 01-22-2022 Chest PA and Lateral Comments: See Note; NOTES: [facility] Imaging Services [address] [place] [address] Chest PA and Lateral MR#: [id number] Acct: [id number] Name: MY JAMA Rep #: [id number] : 1960 M 61 From: Charles Tyler PCP: YARI Pardo Status: REG ER Study: Chest PA and Lateral Date of Exam: 01/22/22 Exam# [id number] Ordering Dr: Cesar Mcbride MD STUDY: X-RAY CHEST REASON FOR EXAM: Male, 61 years old. Productive cough, wheezing, shortness of breath TECHNIQUE: XR Chest 2 Views COMPARISON: 12.1 FINDINGS: There is no demonstrated pleural abnormality. There is a tracheostomy tube. The tip is at the level of the clavicles. There is no pneumothorax. Normal size heart. Normal mediastinum and michelle. Normal visualized pulmonary arteries. There is atherosclerotic calcification of the aortic arch with tortuosity. There are diffuse degenerative changes of the visualized thoracic spine. There is degenerative osteoarthritis of the bilateral shoulders. There is no demonstrated abnormality of the visualized soft tissue structures of the upper abdomen. RAD/Chest PA and Lateral IMPRESSION: There are no acute findings. Electronically Signed: Charles Ayala MD at 21:32 EDT Reading Location ID and State: [facility] / [place] , Service support , CC: YARI Gonzalez; Dr. Cesar Mcbride MD Wood Router Hand: Signed Kya Gonzalez Work Phone: Start: 01-22-2022 Plain chest X-ray BOOTH CLEANER-Damaris Gonzalez NP Work Phone: Start: 01-22-2022 End: 01-22-2022 Emergency Department Summary Comments: See Note; NOTES: [facility] Medical Records Department [address] [place] [address] Emergency Department Summary 01/22/22 MR#: [id number] Acct: [id number] Name: MY JAMA Rep #: [id number] : 1960 61 From: Cesar Mcbride MD PCP: ERWIN PardoC Status:REG ER Location: ED HPI History of Present Illness Chief Complaint: Shortness of Breath Informant: patient Onset/Context/Timing Onset: Days (Approximately 2 days ago) Context: gradual Timing: Continuous and Waxes and wanes Quality: Positive for Dyspnea on exertion and Wheezing (Occasionally); Negative for Orthopnea and PND Current Severity: Mild Maximum Severity: Moderate Worsened by: Exertion and Coughing; Not Worsened By Lying flat Relieved by: Nothing Associated Symptoms cough, sore throat and white sputum; Negative for post nasal drip, ear pain, fever, subjective, chills, sweats or other Chest Pain: Positive for None Narrative Narrative: Patient is a 61-year-old male diagnosed with tongue throat cancer undergoing chemotherapy. He is status post tracheostomy. PFSH PFS Medical History Acid reflux Anemia Cancer related pain Cellulitis Difficulty swallowing Encounter for chemotherapy management Epigastric pain Hypertension malignant squamous cell carcinoma lt neck Mass of left side of neck peg tube removed Sleep disturbance Home Medications Levothyroxine 75 mg PO DAILY 08/25/20 [History Last Taken Unknown] pentoxifylline 400 mg tablet,extended release 400 mg PO TID #90 tab 05/17/21 [Rx Last Taken Unknown] vitamin E mixed 1,000 unit capsule 1,000 unit PO DAILY #30 cap 05/17/21 [Rx Last Taken Unknown] albuterol sulfate 1.25 mg INHALATION Q4H PRN #90 ml 12/10/21 [Rx Last Taken Unknown] nystatin 500,000 unit PO 4X/DAY 7 Days #112 ml 01/03/22 [Rx Last Taken Unknown] oxycodone 5 mg capsule 5 mg PO BID PRN 14 Days #30 cap 01/10/22 [Rx Last Taken Unknown] Allergy/AdvReac Type Severity Reaction Status Date / Time No Known Allergies Allergy Verified 01/22/22 19:55 Family History Mother CVA (cerebral vascular accident) Surgical History history of biopsy neck History of removal of Port-a-Cath Hx of tonsillectomy S/P percutaneous endoscopic gastrostomy (PEG) tube placement ( 01/26/19) s/p port placement ( 01/26/19) Social History Smoking Status: Former smoker quit date: 09/16/21 Tobacco: How many years used: 30 how long ago did patient quit smokin-4 months ago second hand exposure: Yes alcohol intake: former details: August 2021 substance use type: does not use seatbelt use: sometimes do you feel safe at home: Yes ROS ROS ED Constitutional Constitutional ED: Denies chills, fever(s), sweats or weight loss Eyes Eyes: Denies blurry vision, change in vision or diplopia ENT ENT ED: Reports sore throat; Denies ear pain or rhinorrhea Cardiovascular Cardiovascular: Denies chest pain, orthopnea, palpitations, paroxysmal nocturnal dyspnea or racing heartbeat Respiratory/Chest Respiratory/Chest: Reports cough, dyspnea, dyspnea on exertion and sputum; Denies orthopnea or paroxysmal nocturnal dyspnea Gastrointestinal Gastrointestinal: Denies abdominal pain, diarrhea, melena, nausea or vomiting Genitourinary Genitourinary ED: Denies dysuria, hematuria or urinary frequency Musculoskeletal Musculoskeletal: Denies arthralgias, back pain, myalgias or neck pain Integumentary Denies abscess, Abrasions or rash Neurologic Neurologic: Denies headache(s), paresthesias or weakness Endocrine Endocrinology: Denies polydipsia, polyphagia or polyuria Hematologic/Lymphatic Hematologic/Lymphatic: Denies easy bleeding or easy bruising Allergic/Immunologic Allergic/Immunologic ED: Denies mouth swelling, tongue swelling or urticaria EXAM Physical Exam Const Vital Signs: 01/22/22 19:54 01/22/22 20:13 01/22/22 20:34 Temperature 97.9 F Temperature Source Temporal Pulse Rate 73 83 Respiratory Rate 18 22 H Respiratory Effort Labored Normal Short of Breath Respiratory Depth Normal Shallow Respiratory Pattern Normal Tachypnea Blood Pressure 139/68 H Blood Pressure Mean 91 Pulse Ox 100 97 Oxygen Delivery Method Room Air Room Air Room Air Positive well nourished and well developed General Appearance ED: well developed and NAD; Negative for pallor HEENT Reports TM's clear and moist mucous membranes HEENT Narrative: Patient has welling of his lips tongue due to cancer and radiation therapy. atraumatic; Negative for trauma or tenderness Tympanic Membrane ED: Yes TM's clear Eyes PERRL and EOMs intact bilaterally General Eye ED: Negative for pale conjunctiva or scleral icterus Neck no lymphadenopathy, no meningeal signs and no JVD Neck Narrative: Patient has a tracheostomy. There is whitish sputum noted from the tracheostomy. Resp No normal respiratory effort and No clear to auscultation bilaterally Auscultation: wheezes and diminished lung sounds Cardio regular rate, regular rhythm, S1 normal heart sound, S2 normal heart sound and no murmurs GI non-tender, non-distended and no masses Auscultation: normoactive bowel sounds Palpation: soft Back/Spine no CVA tenderness and normal to inspection Extremity Negative for normal to inspection Extremity Narrative: Patient has a sessile shaped burn lateral aspect of the left calf. There is no evidence of infection. He does have evidence of dry skin. He also has stigmata of peripheral arterial disease. General Extremety ED: Yes tenderness; Negative for edema General Extremity: Negative for edema Neuro oriented x3 and CN's II-XII intact bilaterally [place] Coma Scale: document GCS findings Spontaneous Obeys Commands Oriented 15 Sensorium / Orientation: alert Psych mental status grossly normal Thought Process: normal thought process Skin No no wounds Skin Narrative: Wound previously described left calf General Skin Exam: Negative for jaundice or pallor Lesions: No no lesions Rashes: No no rashes MDM MDM Lab Data Attestation: I reviewed the patient's lab results. Lab results narrative: Count is unremarkable. He has mild anemia. There is a slight shift with no bandemia. Patient had a significant drop in his sodium since January 15. Chloride is also low at 83. Creatinine is 0.28. BUN to creatinine ratio is 31.8-1. With history of neck cancer will obtain urine osmolarity, serum osmolarity, TSH and cortisol to evaluate for SIADH. Labs: Laboratory Results - last 24 hr 01/22/22 01/22/22 20:30 20:30 WBC 7.4 RBC 3.13 L Hgb 9.9 L Hct 27.5 L MCV 87.9 MCH 31.6 MCHC 36.0 RDW Std Deviation 45.3 H RDW Coeff of Jennifer 14.2 Plt Count 276 MPV 8.2 Immature Gran % (Auto) 0.500 Neut % (Auto) 80.0 H Lymph % (Auto) 7.4 L Sioux % (Auto) 11.7 H Eos % (Auto) 0.1 Baso % (Auto) 0.3 Absolute Neuts (auto) 6.0 Absolute Lymphs (auto) 0.55 L Nucleated RBC % 0 Differential Comment SCANNED Sodium 115 L* Potassium 3.9 Chloride 81 L Carbon Dioxide 27.0 Anion Gap 7 BUN 9 Creatinine 0.28 L Estim Creat Clear Calc 224.16 Est GFR (MDRD) Af Amer 421 Est GFR (MDRD) Non-Af 348 BUN/Creatinine Ratio 31.8 H Glucose 105 Calcium 8.8 Radiography Chest X-Ray - ED: 2 View, Read by ED Physician ([id number]), Unchanged, Heart, Mediastinum, Bony Structures, No Acute Disease and Chronic Changes Diagnostic Testing: Clinical Impression(s) from Imaging Studies Chest X-Ray 01/22/22 21:15 IMPRESSION: There are no acute findings. Electronically Signed: Charles Ayala MD at 21:32 EDT Reading Location ID and State: [facility] / [place] , Service support , EKG Initial EKG: Attestation: I personally reviewed and interpreted this EKG as follows: Interpretation: Sinus Rhythm (Rate is 70. The EKG is normal. DE interval 70 ms. QRS duration is 170 ms. QRS durations 90 ms. QT duration 394 ms. 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 Call [facility] ([phone]) or report to the closest Emergency Room. Call 911 if necessary. 01/22/222146 <Electronically signed by Cesar Mcbride MD> Cosigner Signature (if applicable): CC: BOOTH CLEANERLulu Gonzalez Signed Kya Gonzalez Work Phone: Start: 01-17-2022 End: 01-24-2022 Radiation Oncology Visit Comments: See Note; NOTES: [facility] [place] [address] OFFICE VISIT Date of Service: 01/17/22 0846 MR#: [id number] Acct: [id number] Name: MY JAMA Rep #: [id number] : 1960 From: Santiago Sellers DO Age/Sex: 61/M Location: [facility] Status: Signed Intake Vital Signs 01/17/22 11:57 BP 127/70 H Blood Pressure Location Rt brachial Position Sitting Respiration 16 Pulse 66 Pulse Source Monitor Temp 98 F Temperature Source Tympanic Pulse Oximetry (%) 100 Oxygen Delivery Method room air Intake Visit Reasons: OTV Chief Complaint: Recurrent squamous cell cancer of the head and neck on treatment Metal Hanging Helper Required: No Is patient in pain?: No Allergies No Known Allergies Allergy (Verified 01/17/22 09:25) PFSH PFSH Medical History Acid reflux Anemia Cancer related pain Cellulitis Difficulty swallowing Encounter for chemotherapy management Epigastric pain Hypertension malignant squamous cell carcinoma lt neck Mass of left side of neck peg tube removed Sleep disturbance Allergy/AdvReac Type Severity Reaction Status Date / Time No Known Allergies Allergy Verified 01/17/22 09:25 Family History Mother CVA (cerebral vascular accident) Surgical History history of biopsy neck History of removal of Port-a-Cath Hx of tonsillectomy S/P percutaneous endoscopic gastrostomy (PEG) tube placement ( 01/26/19) s/p port placement ( 01/26/19) Social History Smoking Status: Former smoker quit date: 09/16/21 Tobacco: How many years used: 30 how long ago did patient quit smokin-4 months ago second hand exposure: Yes alcohol intake: former details: August 2021 substance use type: does not use seatbelt use: sometimes do you feel safe at home: Yes Diagnosis: My Jama is a 58-year-old male diagnosed with 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 From 02/10/2019 ??? 03/25/2019 he received definitive chemoradiation therapy consisting of 6996 cGy in 33 fractions with concurrent high dose cisplatin. 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 Plan: Plan was made to complete reirradiation with concurrent chemotherapy consisting of 6600 cGy delivered to the area concerning for close/positive margin and 5940 centigrade delivered to the flap based reconstruction and right neck levels 1 through 4. Treatment Data: Treatment Site: Oral Cavity/Right neck Current total dose/Total dose planned: 4200 cGy / 6600 cGy Fraction number: Chemotherapy: weekly carboplatin Subjective: Pain: 2-3 / 10, jaw and leg (flap donor site); patient is eating foods such as yogurt daily but most of his nutrition is via his feeding tube. Fatigue: none ENT: mild mucositis. No odynophagia or dysphagia. Normal mostly taste, Xerostomia at baseline, using rinses Skin: Mild erythema. Significant scabbing around flap, Finished 7 day course Keflex, still same and using vasaline. Scabbing as compared to last week is actually diminished. There is no open wounds Nutrition/weight: Weight stable. Small volume mostly soft diet by mouth. 6-7 TFs per day Rinses: doing baking soda/salt rises. doing green tea rinses. nystatin for thrush last week Respiratory: no cough, SOB Objective: Weight: 125 lbs Physical Exam: Gen: NAD ENT: no mucositis. No thrush despite prescription for nystatin. No visualized lesions in the oral cavity or oropharynx. Well healed flap based reconstruction. Skin: no erythema, rash, desquamation. Left neck with fibrosis. Significant scabbing around flap and involving neck incision. 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 I reviewed and approved all treatment associated imaging. Possibly post surgical cellulitis of flap and neck incision, Finished antibiotics. Appears unchanged. using vasaline Skin; grade 1 erythema Thrush noted by med unk and nystatin prescription given. There is no thrush that I can observe today in the oral cavity or oropharynx. Pain Plan: Continue treatment as planned. I have reviewed potential treatment associated toxicities as well as timing for resolution and management. Skin: Skin care reviewed, continue lotion at least bid, vasaline on scabbing per ENT, will see ENT next week Pain: mild, continue oxycodone qd - bid Nutrition: mostly via PEG, continue follow up, weight stable ADVANCED PRACTICE REGISTERED NURSE: continue following during XRT Rinses: continue recommended baking soda/salt rinses 4-6/d, green tea rinses 2-3/d Follow up next week or sooner if needed. Thank you for allowing me to participate in the management and care of your patient. If I may answer any questions in the interim, please do not hesitate to contact me at any time. Coding Level of Care Code Radiation Tx Management x5 01/24/22 0904 <Electronically signed by Santiago Sellers DO> Date Santiago Sellers DO 01/17/22 1206<Electronically signed by Segundo Goldberg MD> Cosigner Signature: Date (if applicable) Segundo Goldberg MD CC: Kya Gnozalez Work Phone: Start: 01-10-2022 End: 01-10-2022 Radiation Oncology Visit Comments: See Note; NOTES: [facility] [place] [address] [place] [address] OFFICE VISIT Date of Service: 01/10/22 1033 MR#: [id number] Acct: [id number] Name: MY JAMA Rep #: [id number] : 1960 From: Santiago Sellers Age/Sex: 61/M Location: [facility] Status: Signed Intake Intake Visit Reasons: OTV Chief Complaint: Recurrent squamous cell cancer of the head and neck on treatment Metal Hanging Helper Required: No Is patient in pain?: Yes (chin and jaw at night) Pain scale (1-10): 6 Allergies No Known Allergies Allergy (Verified 01/10/22 09:14) [facility] Medical History (Updated 01/10/22 @ 10:14 by Marce Maxwell BOOTH CLEANER, BOOTH CLEANER-C) Acid reflux Anemia Cancer related pain Cellulitis Difficulty swallowing Encounter for chemotherapy management Epigastric pain Hypertension malignant squamous cell carcinoma lt neck Mass of left side of neck peg tube removed Sleep disturbance Allergy/AdvReac Type Severity Reaction Status Date / Time No Known Allergies Allergy Verified 01/10/22 09:14 Family History Mother CVA (cerebral vascular accident) Surgical History history of biopsy neck History of removal of Port-a-Cath Hx of tonsillectomy S/P percutaneous endoscopic gastrostomy (PEG) tube placement ( 01/26/19) s/p port placement ( 01/26/19) Social History Smoking Status: Former smoker quit date: 09/16/21 Tobacco: How many years used: 30 how long ago did patient quit smokin-4 months ago second hand exposure: Yes alcohol intake: former details: August 2021 substance use type: does not use seatbelt use: sometimes do you feel safe at home: Yes Diagnosis: My Jama is a 58-year-old male diagnosed with 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 From 02/10/2019 ??? 03/25/2019 he received definitive chemoradiation therapy consisting of 6996 cGy in 33 fractions with concurrent high dose cisplatin. 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 Plan: Plan was made to complete reirradiation with concurrent chemotherapy consisting of 6600 cGy delivered to the area concerning for close/positive margin and 5940 centigrade delivered to the flap based reconstruction and right neck levels 1 through 4. Treatment Data: Treatment Site: Oral Cavity/Right neck Current total dose/Total dose planned: 3200 cGy / 6600 cGy Fraction number: Chemotherapy: weekly carboplatin Subjective: Pain: 2-3 / 10, jaw and leg (flap donor site) Fatigue: none ENT: mild mucositis. No odynophagia or dysphagia. Normal mostly taste, Xerostomia at baseline, using rinses Skin: Mild erythema. Significant scabbing around flap, Finished 7 day course Keflex, still same and using vasaline. Nutrition/weight: Weight stable. Small volume mostly soft diet by mouth. 6-7 TFs per day Rinses: doing baking soda/salt rises. doing green tea rinses. nystatin for thrush last week Respiratory: no cough, SOB Objective: Weight: 125 lbs Physical Exam: Gen: NAD ENT: no mucositis. No thrush or visualized lesions in the oral cavity or oropharynx. Well healed flap based reconstruction. Skin: no erythema, rash, desquamation. Left neck with fibrosis. Significant scabbing around flap and involving neck incision. 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 I reviewed and approved all treatment associated imaging. Possibly post surgical cellulitis of flap and neck incision, Finished antibiotics. Appears unchanged. using vasaline Skin; grade 1 erythema Thrush suspected, treated with nystatin per med onc Pain Plan: Continue treatment as planned. I have reviewed potential treatment associated toxicities as well as timing for resolution and management. Skin: Skin care reviewed, continue lotion at least bid, vasaline on scabbing per ENT, will see ENT next week Pain: mild, continue oxycodone qd - bid Nutrition: mostly via PEG, continue follow up, weight stable ADVANCED PRACTICE REGISTERED NURSE: continue following during XRT Rinses: continue recommended baking soda/salt rinses 4-6/d, green tea rinses 2-3/d Follow up next week or sooner if needed. Thank you for allowing me to participate in the management and care of your patient. If I may answer any questions in the interim, please do not hesitate to contact me at any time. 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 [place] [address] OFFICE VISIT Date of Service: 01/10/22911 MR#: [id number] Acct: [id number] Name: MY JAMA Rep #: [id number] : 1960 From: Marce Maxwell NP BOOTH CLEANER -C Age/Sex: 61/M [place] [facility] Status: Signed HPI Subjective Date of Service 01/10/22 Chief Complaint Recurrent squamous cell cancer of the head and neck on treatment History of Present Illness 61-year-old male Ex-smoker and heavy alcohol user who presented with a painless left neck mass that progressively increased in size over the course of the past couple of months. December 17, 2018 CT soft tissues of the neck: FINDINGS: There is a rim-enhancing centrally cystic mass distal to the angle the mandible, lateral to the hyoid cartilage, along the anterior margin of the sternocleidomastoid muscle. Wall thickness up to 4.9 mm. Process measures approximately 1.8 cm craniocaudal, 1.8 cm transverse, 2.9 cm anterior-posterior. Posteriorly and deep to the sternomastoid muscle, single mildly enlarged lymph node measuring 1.2 x 1.6 cm. A few additional shotty lymph nodes are present on the left. Normal thyroid. Normal submandibular glands and parotid glands. There is no right cervical lymphadenopathy. Pharyngeal and laryngeal soft tissues appear normal. Multilevel cervical spondylosis with disc disease most notable at C5-C6 with uncovertebral joint hypertrophy contributing to mild foraminal narrowing. Mucoperiosteal thickening and mucous retention cysts of the maxillary sinuses. Solitary opacified posterior right ethmoid sinus. Mastoid air cells and middle ear cavities clear. 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 December 17, 2018 CT chest: FINDINGS: Supraclavicular: No acute process within the [id number]. Body wall soft tissues: No acute process. Upper abdomen: No acute process. Osseous structures: No acute process. Mild scoliosis, moderate kyphosis, mild multilevel thoracic spondylosis. Mediastinum: No acute process. Cardiovascular: No acute process. Lungs: A few small scattered pulmonary nodules are present. The largest is in the right upper lobe anterior segment, series 6 image 73, 5 cm, solid features, smooth margins. Unremarkable airways. IMPRESSION: No acute thoracic process is evident. Small pulmonary nodules. The largest measures approximately 5 mm. Follow-up low-dose CT chest is recommended in 1 year for pulmonary nodule surveillance purposes. December 22, 2018 DIAGNOSIS CYTOLOGY A. 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 See comment. B. 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 ANTIBODY / CLONE RESULT Block A AE1-3 (AE1/AE3/PCK26) positive CK7 (OV-TL12/30) negative CK8 (03womyW63) positive, weak CK20 (KS20.8) negative TTF-1 (8G7G3/1) negative Napsin A (Rabbit Polyclonal) negative HepPar (OCh1E5) negative RCC (PN-15) negative PSAP (PASE/4LJ) negative CK5-6 (D5 1684) positive P16 (E6H4) negative P40 (BC28) positive, focal January 02, 2019: Patient was evaluated by ENT : oral and oropharyngeal mucosa were normal. Flexible laryngoscopy was performed which demonstrated no evidence of lesion. Small cystic lesion of the uvula was felt to be benign. January 05, 2019 PET/CT: IMPRESSION: 1. ABNORMAL EXAMINATION INDICATIVE OF MALIGNANT-VIABLE NEOPLASM. 2. Increased glucose concentration observed in the left lateral neck fulfills quantitative criteria for viable neoplasm. 3. Asymmetric enhanced FDG distribution noted in the left pharyngeal mucosal space may be further investigated with rigorous clinical examination. 4. No other quantitatively significant hypermetabolic abnormalities are noted. There is no definitive scintigraphic evidence of distant metastatic disease. January 30, 2019: left tonsil excision and uvula excision. Pathology displayed no evidence of malignancy or high-grade squamous dysplasia. There was noted to be submucosal dilated minor salivary gland duct with oncocytic metaplasia in the uvula. In preparation for locoregional combined chemoradiation patient Patient underwent multiple dental extractions, placement of PEG tube and port. February 10 through March 25, 2019 combined modality therapy (see below for details) May 13, 2019: CT chest: Comparison is made with prior study in December 17, 2018 There is persistent multifocal nodular pleural thickening or tiny pleural-based nodules in the lower lobes which are unchanged in size or number since previous study. The dominant nodule in the right lower lobe is not changed appreciably in size since prior exam June 29, 2019 PET/CT: IMPRESSION: 1. NEGATIVE EXAMINATION. There is no definitive quantitative scintigraphic evidence of recurrent-metastatic viable neoplasm. 2. There is interval metabolic resolution of the previously identified left lateral neck and left pharyngeal mucosal space hypermetabolic abnormalities. 3. Overall, compared to the prior FDG PET study dated 01/05/19, there is current absence of defined viable neoplastic disease with interval resolution of the prior defined hypermetabolic foci, as articulated above. October 07, 2019 CT chest: IMPRESSION: Normal enhanced CT Chest examination. April 06, 2020 CT chest: IMPRESSION: 1. Bilateral pulmonary nodules, stable in the interval. Appropriate follow-up using Fleischner Society criteria is recommended. 2. Dilatation of the main pulmonary artery measuring up to 3.2 cm in diameter. This may be associated with pulmonary hypertension. 3. Increased thoracic kyphosis. Diffuse endplate spondylosis of the visualized cervical, thoracic, and lumbar spine. No lytic or blastic osseous changes are seen. September 02, 2020 CT chest: FINDINGS: Lungs are severely emphysematous with multiple scattered stable nodules. There is a new small, 3 mm nodule in the anterior segment of the right upper lobe, image 36/136 series #4. Remainder of the nodules are stable since priors and are all less than 5 mm and low risk appearing. Additional 1 -- 2 mm nodules are present and are too small to reliably characterize between the current and prior scan due to differences in technique, inspiration, etc. Central airways are patent. Pleural surfaces are intact. Mediastinal contents are normal. Cardiac chambers are normal in size and shape. Pericardium is normal. Osseous structures are intact with exaggerated lower thoracic kyphosis without osseous lesions. Upper abdominal structures are normal. IMPRESSION: 1. Severe emphysema. 2. Multiple low risk and stable over many nodules. CT chest February 27, 2021 IMPRESSION: Stable examination. Stable emphysematous changes. CT neck August 23, 2021: demonstrated evidence of bony destruction involving the mid anterior aspect of the mandible. The transverse dimension of the destruction measures 2.1 cm. There appears to be a 2.6 x 3.7 cm soft tissue mass overlying the anterior aspect of the midportion of the mandible, should rule out neoplastic process. No other abnormalities are appreciated. PET/CT restaging October 11, 2021: demonstrated heterogeneous increased FDG distribution defined in the anterior midline mandible extending into the periosseous soft tissue anteriorly with a calculated max of SUV of 12 maximum diameter of 5.1 x 5.5 cm. No other quantitatively significant hypermetabolic abnormalities are noted. November 07, 2021 direct laryngoscopy, flexible bronchoscopy, flexible esophagoscopy, PEG tube placement, tracheostomy, composite resection of oral cavity, excision of skin and soft tissue measuring 8 x 9 cm, segmental mandibulectomy, right selective neck dissection of levels 1 through 4 and left neck exploration with reconstruction with thigh free flap and had complex neck closure with split thickness skin graft. 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 There was skin invasion present. LVSI not identified. PNI present and focal. Right posterior floor of mouth mucosal margin is involved by invasive carcinoma, left posterior floor of mouth margin is involved by high-grade dysplasia/in situ disease. Right skin soft tissue margin is less than 1 mm, right oral soft tissue margin is 1.5 mm, posterior soft tissue margin is 2.5-3 mm. 3 lymph nodes were involved 2 involving the right level 1 and 1 involving the right level 4, largest deposit was 3 mm and no DEREK was noted. November 09, 2021 postoperative course was complicated by arterial clotting and taken back to the OR for arterial release, flap checks were stable following the takeback. Treatment summary: * Combined high-dose cisplatin and radiation January through March 2019: 6996 cGy delivered to gross disease involving the left neck, 5940 cGy to the high risk mucosal sites (entire oropharynx) and high risk lymph node sites (left levels 2-5), and 5412 cGy delivered to the low risk mucosal sites (nasopharynx, larynx, hypopharynx) bilateral high level 2, bilateral supraclavicular fossa, and right neck levels 2-5). The patient did receive concurrent chemotherapy with high dose cisplatin (cycle 1: 02/10, cycle 2: 03/02, cycle 3: 03/23). Date of First Treatment: 02/10/2019 Date of Last Treatment: 03/25/2019 * November 07, 2021 direct laryngoscopy, flexible bronchoscopy, flexible esophagoscopy, PEG tube placement, tracheostomy, composite resection of oral cavity, excision of skin and soft tissue measuring 8 x 9 cm, segmental mandibulectomy, right selective neck dissection of levels 1 through 4 and left neck exploration with reconstruction with thigh free flap and had complex neck closure with split thickness skin graft. * Adjuvant concurrent chemoradiation with carboplatin AUC 2 December 20, 2021-. Interval History The patient is presenting to clinic for an evaluation anticipating he will receive cycle 4 weekly carboplatin. Concerns today include facial swelling, increased mucous production, fatigue and contin ued sleep disturbance. Able to sleep sitting upright. Prefers to sleep lying down, but is unable to as breathing is difficult lying supine. He does have a recliner in his home. Using PEG tube, estimates 6-8 cans of liquid nutrition daily, tolerates well. He is now suctioning before bedtime and prn, typically requires suctioning 3-4 times per day. PO fluid intake estimated at 1-1.5 L. Specifically denies fever/chills, sweats, headache, dizziness, CP, palpitations, abd pain, nausea, Chronic exertional dyspnea unchanged. [facility] Medical History (Updated 01/10/22 @ 10:14 by Marce Maxwell [employer]OTH CLE[employer]ER, [employer]) Acid reflux Anemia Cancer related pain Cellulitis Difficulty swallowing Encounter for chemotherapy management Epigastric pain Hypertension malignant squamous cell carcinoma lt neck Mass of left side of neck peg tube removed Sleep disturbance Surgical History history of biopsy neck History of removal of Port-a-Cath Hx of tonsillectomy S/P percutaneous endoscopic gastrostomy (PEG) tube placement ( 01/26/19) s/p port placement ( 01/26/19) Family History Mother CVA (cerebral vascular accident) Social History Smoking Status: Former smoker quit date: 09/16/21 Tobacco: How many years used: 30 how long ago did patient quit smokin-4 months ago second hand exposure: Yes alcohol intake: former details: August 2021 substance use type: does not use seatbelt use: sometimes do you feel safe at home: Yes Intake Vital Signs 01/10/22 09:15 Height 5 ft 5 in Weight: 125 lb 3 oz BMI 20.8 BP 121/67 H Blood Pressure Location Rt brachial Position Sitting Respiration 16 Pulse 67 Pulse Source Monitor Temp 98.1 F Temperature Source Temporal Artery Oxygen Delivery Method room air Intake Is patient in pain?: No Allergies No Known Allergies Allergy (Verified 01/10/22 09:14) Medications Levothyroxine 75 mg PO DAILY 08/25/20 [History Confirmed 01/10/22] pentoxifylline 400 mg tablet,extended release 400 mg PO TID #90 tab 05/17/21 [Rx Confirmed 01/10/22] vitamin E mixed 1,000 unit capsule 1,000 unit PO DAILY #30 cap 05/17/21 [Rx Confirmed 01/10/22] albuterol sulfate 1.25 mg INHALATION Q4H PRN #90 ml 12/10/21 [Rx Confirmed 01/10/22] nystatin 500,000 unit PO 4X/DAY 7 Days #112 ml 01/03/22 [Rx Confirmed 01/10/22] oxycodone 5 mg PO BID PRN 7 Days #14 cap 01/03/22 [Rx Confirmed 01/10/22] Central Venous Access Central Venous Access: No Laboratory Tests 01/10/22 01/10/22 08:45 08:45 WBC 6.0 Hgb 10.4 L Plt Count 377 Absolute Neuts (auto) 4.4 Sodium 131 L Chloride 94 L BUN 10 Creatinine 0.40 L Calcium 8.5 Exam Physical Exam Narrative ECOG 1 Const alert, oriented x3 and no apparent distress General Appearance: cooperative and comfortable HEENT HEENT Narrative: Reconstruction of the lower face, soft tissue edema generalized Skin breakdown underside chin General Ear: hearing grossly impaired Mouth: oral and palatal mucosa abnormal erythematous and other (thin, yellow secretions) Eyes PERRL, conjunctivae normal and no scleral icterus General Eye: normal appearance of both eyes Neck no lymphadenopathy and no JVD Neck Narrative: Postoperative changes including flap. There is residual tissue edema General: tracheostomy present Lymph Lymphatic: no lymphadenopathy noted Chest Chest: symmetrical chest wall rise Resp Auscultation: diminished lung sounds bilateral and diffuse Cardio regular rate, regular rhythm, S1 normal heart sound and S2 normal heart sound Jugular Venous Distention: Negative for JVD GI soft to palpation, non-tender and non-distended; Negative for hepatosplenomegaly GI Narrative: PEG tube no CVA tenderness Back/Spine no thoracic nor lumbar tenderness Extremity General Extremity: edema left lower extremity; Negative for clubbing or cyanosis Neuro oriented x3, CN's II-XII intact bilaterally and moves all extremities Neuro Narrative: Bilateral symmetric wasting of first interosseous muscles. 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 Patient is status post tonsillectomies and uveal excision yet no primary identified. Received concomitant chemoradiation January through March 2019 tolerated with expected but no excessive toxicities. He is in complete remission now and is on surveillance with no evidence to suggest cancer recurrence. Residual posttreatment skin hyperpigmentation and induration in the neck area and dry mouth. Indeterminate too small to further characterize lung nodules on initial staging chest CT of November 2018 remains stable for 2 years on imaging through February 2021. 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 Restaging did not suggest systemic disease. October 2021 he underwent radical surgery. Started adjuvant combined modality therapy with radiation and weekly carboplatin chemosensitization December 20, 2021. Comorbid conditions: Smoking and excessive alcohol until the time of diagnosis of malignancy. He continued to smoke after the first line of therapy Plan: 1-continue postoperative adjuvant radiation therapy due to high risk for local recurrence of the disease. Overall, tolerating carboplatin well. CBC reviewed and values are with acceptable parameters for treatment. He is otherwise not endorsing any s/sx of toxicity and will proceed with cycle 4 weekly carboplatin. 2- Pain, continue oxycodone as needed Plan Details Other Medications: Discontinued: doxycycline monohydrate Discontinued Reason: Pt no longer taking 100 mg (20 mL) PO BID 280 mL 0RF L03.90, T81.89XD 01/10/22 1014 <Electronically signed by Marce Maxwell NP [employer]> Date Marce Maxwell NP [employer] Cosigner Signature: Date (if applicable) CC: Kya Gonzalez Work Phone: Start: 01-08-2022 End: 01-08-2022 Modified Barium Swallow Study Comments: See Note; NOTES: [facility] Speech Pathology [address] [place] [address] Modified Barium Swallow Study MR#: [id number] Acct: [id number] Name: MY JAMA Rep #: [id number] : 1960 61 From: Latosha Boyer M.A., 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 Medical History: The pt is a 61-year-old male diagnosed with clinical stage NOREEN (cTx cN2b M0) p16 negative SCC of unknown primary with left neck adenopathy in level 2-[address] neck and chest (12/17/2018), ultrasound-guided FNA of the left neck mass (12/22/2018), PET scan (01/05/2019), triple endoscopy with targeted left tonsillectomy (01/30/2019). From 02/10/2019 ??? 03/25/2019 he received definitive chemoradiation therapy consisting of 6996 cGy in 33 fractions with concurrent high dose cisplatin. 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 11/07/2021: Patient underwent direct laryngoscopy, flexible bronchoscopy, flexible esophagoscopy, PEG tube placement, tracheostomy, composite resection of oral cavity, excision of skin and soft tissue measuring 8 x 9 cm, segmental mandibulectomy, right selective neck dissection of levels 1 through 4 and left neck exploration for vessels. Reconstruction was thigh free flap and had complex neck closure with split thickness skin graft. Trach and PEG tube placed. 11/09/2021. Postoperative course was complicated by arterial clotting and taken back to the OR for arterial release, flap checks were stable following the takeback. 12/05/2021: Trach re-inserted due to difficulty breathing when lying flat. He is currently in his third week of concurrent chemoradiation therapy. He is primarily consuming thin liquids and soft solids or pureed textures at this time. Current Diet Ordered: Soft solids / Thin liquids Dentition: Edentulous Mental Status: WNL Respiratory Status: Oxygenating on Room Air - Trach with PMSV placed - Penetration-Aspiration Scale Penetration-Aspiration Scale: OBJECTIVE ASSESSMENT OF SWALLOW FUNCTION (QUANTITATIVE ??? PER TRIAL): PENETRATION / ASPIRATION SCALE (SENIOR): 1 = does not enter airway 2 = enters airway/above vocal folds/ejected 3 = enters airway/above vocal folds/not ejected 4 = enters airway/contacts vocal folds/ejected 5 = enters airway/contacts vocal folds/not ejected 6 = enters airway/below vocal folds/ejected 7 = enters airway/below vocal folds/not ejected despite effort 8 = enters airway/below vocal folds/no effort VIDEOFLOROSCOPIC SCALE SCORE (SENIOR): Grade I = aspiration of material that has penetrated into the laryngeal vestibule, intact cough reflex Grade II = aspiration < 10 % of the bolus, intact cough reflex Grade III = aspiration of < 10 % of the bolus, reduced cough reflex or aspiration of > 10 % of the bolus, intact cough reflex Grade IV = aspiration of > 10 % of the bolus, reduced cough reflex - Penetration-Aspiration Scale Score Thin Liquid via teaspoon Result: 1= does not enter airway Thin Liquid via teaspoon Trial 2 Result: 1= does not enter airway Thin Liquid via small single sip from cup Result: 1= does not enter airway Thin Liquid via sequential sips from cup Result: 3= enters airways/above vocal folds/not ejected Oppelo Thick Liquid via small single sip from cup Result: 1= does not enter airway Honey Thick Liquid via small single sip from cup Result: 1= does not enter airway Pudding Result: 1= does not enter airway Thin Liquid via single sip from straw Result: 1= does not enter airway Thin Liquid via small single sip from cup Trial 2 Result: 3= enters airways/above vocal folds/not ejected - Oral Phase Labial Seal: Escape progressing to mid-chin Tongue Control During Bolus Hold: Escape to lateral buccal cavity/floor of mouth Bolus Transport/Lingual Motion: Brisk tongue motion Oral Residue: Residue collection on oral structures - Pharyngeal Phase Initiation of Pharyngeal Swallow: Bolus head in pyriforms - Sequential sips Soft Palate Elevation: No bolus between soft palate and pharyngeal wall Laryngeal Elevation: Partial superior movement thyroid cart/partial apprx aryt-epig petiole Anterior Hyoid Excursion: No anterior movement - Little to no anterior movement Epiglottic Movement: Partial inversion Laryngeal Vestibule Closure at Height of Swallow: Incomplete; narrow column of air/contrast in laryngeal vestibule Pharyngeal Stripping Wave: Present - diminished Pharyngoesophageal Segment Opening: Parital distension and partial duration; parital obstruction of flow Tongue Base Retraction: Narrow column of contrast between tongue base post. pharyngeal wall Pharyngeal Residue: Collection of residue within or on pharyngeal structures - Esophageal Phase Esophageal Clearance: Esophageal retention w/ retrograde flow below pharyngoesophageal seg. - Treatment Strategies Effects of treatment strategies attemped:: Decreased rate = Effective. - Diagnosis/Impression Diagnosis: Moderate oropharyngeal phase dysphagia (R13.12) Impression: Pt with severe mandibular edema. The oral phase is marked by decreased bolus control with loss of most boluses to FOM. Sequential sips resulted in premature posterior loss of bolus to the pyriforms. Did not test mastication as the patient politely declined trial of cookie at this time due to difficulty consuming solid textures at this time. The pharyngeal phase of the swallow is marked by decreased airway closure during the swallow and mild-moderate pharyngeal residues. He has severely decreased anterior hyoid excursion, likely due to fibrosis of anterior neck from hx of radiation treatment and severe mandibular edema. He demonstrated decreased UES opening and required multiple swallows to clear pharyngeal residue. He demonstrated laryngeal penetration of thin liquids via single and sequential cup without full ejection from the laryngeal vestibule. Cough and re-swallow was somewhat effective but did not fully clear the laryngeal vestibule of contrast. No aspiration observed during the study. - Recommendations Diet: Mechanical Soft Textures - Minced and moist textures (IDDSI Level 5), Thin Liquids Comment: Consider intermittent use of cough and reswallow, especially if a wet vocal quality is observed. Compensatory Strategies: Small Bites, Small Sips, Slow Rate, Multiple Swallows, Sitting upright, Remain sitting upright for 30 minutes after PO intake Recommend Repeat Modified Barium Swallow: Yes Comment: 3 months after completion of radiation Need for Skilled Speech Therapy Services: Yes Comment: Will recommend the patient for continued outpatient dysphagia therapy to address deficits in oropharyngeal swallow function. Would consider the patient for oropharyngeal strengthening to improve tongue base retraction, laryngeal elevation, hyoid excursion, and duration of UES opening. The patient would benefit from thorough education regarding diet recommendations and recommended compensatory strategies. Education Completed: 1. Described result of evaluation. - Status Active ST Patient: Active - Contact Information [facility] Speech Therapy:: Latosha Boyer M.A. [facility] REGISTERED NURSE Speech-Language Pathologist [place] [id number] [place] [address] [email or web address] [phone] 01/08/22 17:21 01/08/22 1739 <Electronically signed by Latosha Boyer M.A., [facility]> Date/Time Latosha Boyer M.A., CCC-ADVANCED PRACTICE REGISTERED NURSE Co-Signature Required for all Medicare patients Date/Time Co-Signature CC: Kya Gonzalez Work Phone: Start: 01-08-2022 Videosingrid [employer]-C Kya Gonzalez BOOTH CLEANER Work Phone: Start: 01-04-2022 End: 01-08-2022 Radiation Oncology Visit Comments: See Note; NOTES: [facility] [address] [place] [address] OFFICE VISIT Date of Service: 01/04/22 0857 MR#: [id number] Acct: [id number] Name: MY JAMA Rep #: [id number] : 1960 From: Santiago Sellers DO Age/Sex: 61/M Location: [facility] [place] Status: Signed Intake Vital Signs 01/04/22 08:57 Weight: 124 lb 7 oz BP 118/64 Blood Pressure Location Rt brachial Position Sitting Respiration 14 Pulse 70 Pulse Source Monitor Temp 98.7 F Temperature Source Tympanic Pulse Oximetry (%) 93 Oxygen Delivery Method room air Intake Visit Reasons: OTV Chief Complaint: Recurrent squamous cell cancer of the head and neck on treatment Metal Hanging Helper Required: No Is patient in pain?: No Allergies No Known Allergies Allergy (Verified 01/04/22 08:59) Medications Levothyroxine 75 mg PO DAILY 08/25/20 [History Confirmed 01/04/22] pentoxifylline 400 mg tablet,extended release 400 mg PO TID #90 tab 05/17/21 [Rx Confirmed 01/04/22] vitamin E mixed 1,000 unit capsule 1,000 unit PO DAILY #30 cap 05/17/21 [Rx Confirmed 01/04/22] albuterol sulfate 1.25 mg INHALATION Q4H PRN #90 ml 12/10/21 [Rx Confirmed 01/04/22] doxycycline monohydrate 25 mg/5 mL oral suspension 100 mg PO BID #280 ml 12/27/21 [Rx Confirmed 01/04/22] nystatin 500,000 unit PO 4X/DAY 7 Days #112 ml 01/03/22 [Rx Confirmed 01/04/22] oxycodone 5 mg PO BID PRN 7 Days #14 cap 01/03/22 [Rx Confirmed 01/04/22] PFSH PFSH Medical History Acid reflux Anemia Cancer related pain Cellulitis Difficulty swallowing Epigastric pain Hypertension malignant squamous cell carcinoma lt neck Mass of left side of neck peg tube removed Sleep disturbance Home Medications Levothyroxine 75 mg PO DAILY 08/25/20 [History Last Taken Unknown] pentoxifylline 400 mg tablet,extended release 400 mg PO TID #90 tab 05/17/21 [Rx Last Taken Unknown] vitamin E mixed 1,000 unit capsule 1,000 unit PO DAILY #30 cap 05/17/21 [Rx Last Taken Unknown] albuterol sulfate 1.25 mg INHALATION Q4H PRN #90 ml 12/10/21 [Rx Last Taken Unknown] doxycycline monohydrate 25 mg/5 mL oral suspension 100 mg PO BID #280 ml 12/27/21 [Rx Last Taken Unknown] nystatin 500,000 unit PO 4X/DAY 7 Days #112 ml 01/03/22 [Rx Last Taken Unknown] oxycodone 5 mg PO BID PRN 7 Days #14 cap 01/03/22 [Rx Last Taken Unknown] Allergy/AdvReac Type Severity Reaction Status Date / Time No Known Allergies Allergy Verified 01/04/22 08:59 Family History Mother CVA (cerebral vascular accident) Surgical History history of biopsy neck History of removal of Port-a-Cath Hx of tonsillectomy S/P percutaneous endoscopic gastrostomy (PEG) tube placement ( 01/26/19) s/p port placement ( 01/26/19) Social History Smoking Status: Former smoker quit date: 09/16/21 Tobacco: How many years used: 30 how long ago did patient quit smokin-4 months ago second hand exposure: Yes alcohol intake: former details: August 2021 substance use type: does not use seatbelt use: sometimes do you feel safe at home: Yes Diagnosis: My Jama is a 58-year-old male diagnosed with 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 From 02/10/2019 ??? 03/25/2019 he received definitive chemoradiation therapy consisting of 6996 cGy in 33 fractions with concurrent high dose cisplatin. 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 Plan: Plan was made to complete reirradiation with concurrent chemotherapy consisting of 6600 cGy delivered to the area concerning for close/positive margin and 5940 centigrade delivered to the flap based reconstruction and right neck levels 1 through 4. Treatment Data: Treatment Site: Oral Cavity/Right neck Current total dose/Total dose planned: 2400 cGy / 6600 cGy Fraction number: Chemotherapy: weekly carboplatin Subjective: Pain: 2-3 / 10, jaw and leg (flap donor site) Fatigue: none ENT: no mucositis. No odynophagia or dysphagia. Normal taste, Xerostomia at baseline, using rinses Skin: Mild erythema. Significant scabbing around flap, Finishing 7 day course Keflex tomorrow. Nutrition/weight: Weight stable. Small volume mostly soft diet by mouth. 6-7 TFs per day Rinses: Not doing baking soda/salt rises. Not doing green tea rinses Respiratory: no cough, SOB Objective: Weight: 125 lbs Physical Exam: Gen: NAD ENT: no mucositis. No thrush or visualized lesions in the oral cavity or oropharynx. Well healed flap based reconstruction. Skin: no erythema, rash, desquamation. Left neck with fibrosis. Significant scabbing around flap and involving neck incision. 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 I reviewed and approved all treatment associated imaging. No treatment associated toxicities are noted at this time Possibly post surgical cellulitis of flap and neck incision, Finishing antibiotics for presumed wound infection. Appears unchanged. Plan: Continue treatment as planned. I have reviewed potential treatment associated toxicities as well as timing for resolution and management. Skin: Skin care reviewed, continue lotion at least bid, vasaline on scabbing per ENT Pain: mild, continue oxycodone bid Rinses: recommended baking soda/salt rinses 4-6/d, green tea rinses 2-3/d Follow up next week or sooner if needed. 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 C41.1 01/08/22 0830 <Electronically signed by Santiago Sellers DO> Date Santiago Sellers DO 01/04/22 0911<Electronically signed by Chago Junior MD> Cosigner Signature: Date (if applicable) Chago Junior MD CC: Kya Gonzalez Work Phone: Start: 01-03-2022 End: 01-03-2022 Oncology Visit Report Comments: See Note; NOTES: [facility] [address] [place] [address] OFFICE VISIT Date of Service: 01/03/22919 MR#: [id number] Acct: [id number] Name: MY JAMA Rep #: [id number] : 1960 From: Quincy Simpson MD Age/Sex: 61/M [place] [facility] [place] Status: Signed HPI Subjective Date of Service 01/03/22 Chief Complaint Recurrent squamous cell cancer of the head and neck on treatment History of Present Illness 61-year-old male Ex-smoker and heavy alcohol user who presented with a painless left neck mass that progressively increased in size over the course of the past couple of months. December 17, 2018 CT soft tissues of the neck: FINDINGS: There is a rim-enhancing centrally cystic mass distal to the angle the mandible, lateral to the hyoid cartilage, along the anterior margin of the sternocleidomastoid muscle. Wall thickness up to 4.9 mm. Process measures approximately 1.8 cm craniocaudal, 1.8 cm transverse, 2.9 cm anterior-posterior. Posteriorly and deep to the sternomastoid muscle, single mildly enlarged lymph node measuring 1.2 x 1.6 cm. A few additional shotty lymph nodes are present on the left. Normal thyroid. Normal submandibular glands and parotid glands. There is no right cervical lymphadenopathy. Pharyngeal and laryngeal soft tissues appear normal. Multilevel cervical spondylosis with disc disease most notable at C5-C6 with uncovertebral joint hypertrophy contributing to mild foraminal narrowing. Mucoperiosteal thickening and mucous retention cysts of the maxillary sinuses. Solitary opacified posterior right ethmoid sinus. Mastoid air cells and middle ear cavities clear. 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 December 17, 2018 CT chest: FINDINGS: Supraclavicular: No acute process within the [id number]. Body wall soft tissues: No acute process. Upper abdomen: No acute process. Osseous structures: No acute process. Mild scoliosis, moderate kyphosis, mild multilevel thoracic spondylosis. Mediastinum: No acute process. Cardiovascular: No acute process. Lungs: A few small scattered pulmonary nodules are present. The largest is in the right upper lobe anterior segment, series 6 image 73, 5 cm, solid features, smooth margins. Unremarkable airways. IMPRESSION: No acute thoracic process is evident. Small pulmonary nodules. The largest measures approximately 5 mm. Follow-up low-dose CT chest is recommended in 1 year for pulmonary nodule surveillance purposes. December 22, 2018 DIAGNOSIS CYTOLOGY A. 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 See comment. B. 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 ANTIBODY / CLONE RESULT Block A AE1-3 (AE1/AE3/PCK26) positive CK7 (OV-TL12/30) negative CK8 (32ahdxS82) positive, weak CK20 (KS20.8) negative TTF-1 (8G7G3/1) negative Napsin A (Rabbit Polyclonal) negative HepPar (OCh1E5) negative RCC (PN-15) negative PSAP (PASE/4LJ) negative CK5-6 (D5 1684) positive P16 (E6H4) negative P40 (BC28) positive, focal January 02, 2019: Patient was evaluated by ENT : oral and oropharyngeal mucosa were normal. Flexible laryngoscopy was performed which demonstrated no evidence of lesion. Small cystic lesion of the uvula was felt to be benign. January 05, 2019 PET/CT: IMPRESSION: 1. ABNORMAL EXAMINATION INDICATIVE OF MALIGNANT-VIABLE NEOPLASM. 2. Increased glucose concentration observed in the left lateral neck fulfills quantitative criteria for viable neoplasm. 3. Asymmetric enhanced FDG distribution noted in the left pharyngeal mucosal space may be further investigated with rigorous clinical examination. 4. No other quantitatively significant hypermetabolic abnormalities are noted. There is no definitive scintigraphic evidence of distant metastatic disease. January 30, 2019: left tonsil excision and uvula excision. Pathology displayed no evidence of malignancy or high-grade squamous dysplasia. There was noted to be submucosal dilated minor salivary gland duct with oncocytic metaplasia in the uvula. In preparation for locoregional combined chemoradiation patient Patient underwent multiple dental extractions, placement of PEG tube and port. February 10 through March 25, 2019 combined modality therapy (see below for details) May 13, 2019: CT chest: Comparison is made with prior study in December 17, 2018 There is persistent multifocal nodular pleural thickening or tiny pleural-based nodules in the lower lobes which are unchanged in size or number since previous study. The dominant nodule in the right lower lobe is not changed appreciably in size since prior exam June 29, 2019 PET/CT: IMPRESSION: 1. NEGATIVE EXAMINATION. There is no definitive quantitative scintigraphic evidence of recurrent-metastatic viable neoplasm. 2. There is interval metabolic resolution of the previously identified left lateral neck and left pharyngeal mucosal space hypermetabolic abnormalities. 3. Overall, compared to the prior FDG PET study dated 01/05/19, there is current absence of defined viable neoplastic disease with interval resolution of the prior defined hypermetabolic foci, as articulated above. October 07, 2019 CT chest: IMPRESSION: Normal enhanced CT Chest examination. April 06, 2020 CT chest: IMPRESSION: 1. Bilateral pulmonary nodules, stable in the interval. Appropriate follow-up using Fleischner Society criteria is recommended. 2. Dilatation of the main pulmonary artery measuring up to 3.2 cm in diameter. This may be associated with pulmonary hypertension. 3. Increased thoracic kyphosis. Diffuse endplate spondylosis of the visualized cervical, thoracic, and lumbar spine. No lytic or blastic osseous changes are seen. September 02, 2020 CT chest: FINDINGS: Lungs are severely emphysematous with multiple scattered stable nodules. There is a new small, 3 mm nodule in the anterior segment of the right upper lobe, image 36/136 series #4. Remainder of the nodules are stable since priors and are all less than 5 mm and low risk appearing. Additional 1 -- 2 mm nodules are present and are too small to reliably characterize between the current and prior scan due to differences in technique, inspiration, etc. Central airways are patent. Pleural surfaces are intact. Mediastinal contents are normal. Cardiac chambers are normal in size and shape. Pericardium is normal. Osseous structures are intact with exaggerated lower thoracic kyphosis without osseous lesions. Upper abdominal structures are normal. IMPRESSION: 1. Severe emphysema. 2. Multiple low risk and stable over many nodules. CT chest February 27, 2021 IMPRESSION: Stable examination. Stable emphysematous changes. CT neck August 23, 2021: demonstrated evidence of bony destruction involving the mid anterior aspect of the mandible. The transverse dimension of the destruction measures 2.1 cm. There appears to be a 2.6 x 3.7 cm soft tissue mass overlying the anterior aspect of the midportion of the mandible, should rule out neoplastic process. No other abnormalities are appreciated. PET/CT restaging October 11, 2021: demonstrated heterogeneous increased FDG distribution defined in the anterior midline mandible extending into the periosseous soft tissue anteriorly with a calculated max of SUV of 12 maximum diameter of 5.1 x 5.5 cm. No other quantitatively significant hypermetabolic abnormalities are noted. November 07, 2021 direct laryngoscopy, flexible bronchoscopy, flexible esophagoscopy, PEG tube placement, tracheostomy, composite resection of oral cavity, excision of skin and soft tissue measuring 8 x 9 cm, segmental mandibulectomy, right selective neck dissection of levels 1 through 4 and left neck exploration with reconstruction with thigh free flap and had complex neck closure with split thickness skin graft. 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 There was skin invasion present. LVSI not identified. PNI present and focal. Right posterior floor of mouth mucosal margin is involved by invasive carcinoma, left posterior floor of mouth margin is involved by high-grade dysplasia/in situ disease. Right skin soft tissue margin is less than 1 mm, right oral soft tissue margin is 1.5 mm, posterior soft tissue margin is 2.5-3 mm. 3 lymph nodes were involved 2 involving the right level 1 and 1 involving the right level 4, largest deposit was 3 mm and no DEREK was noted. November 09, 2021 postoperative course was complicated by arterial clotting and taken back to the OR for arterial release, flap checks were stable following the takeback. Treatment summary: * Combined high-dose cisplatin and radiation January through March 2019: 6996 cGy delivered to gross disease involving the left neck, 5940 cGy to the high risk mucosal sites (entire oropharynx) and high risk lymph node sites (left levels 2-5), and 5412 cGy delivered to the low risk mucosal sites (nasopharynx, larynx, hypopharynx) bilateral high level 2, bilateral supraclavicular fossa, and right neck levels 2-5). The patient did receive concurrent chemotherapy with high dose cisplatin (cycle 1: 02/10, cycle 2: 03/02, cycle 3: 03/23). Date of First Treatment: 02/10/2019 Date of Last Treatment: 03/25/2019 * November 07, 2021 direct laryngoscopy, flexible bronchoscopy, flexible esophagoscopy, PEG tube placement, tracheostomy, composite resection of oral cavity, excision of skin and soft tissue measuring 8 x 9 cm, segmental mandibulectomy, right selective neck dissection of levels 1 through 4 and left neck exploration with reconstruction with thigh free flap and had complex neck closure with split thickness skin graft. * Adjuvant concurrent chemoradiation with carboplatin AUC 2 December 20, 2021-. [facility] Medical History Acid reflux Anemia Cancer related pain Cellulitis Difficulty swallowing Epigastric pain Hypertension malignant squamous cell carcinoma lt neck Mass of left side of neck peg tube removed Sleep disturbance Surgical History history of biopsy neck History of removal of Port-a-Cath Hx of tonsillectomy S/P percutaneous endoscopic gastrostomy (PEG) tube placement ( 01/26/19) s/p port placement ( 01/26/19) Family History Mother CVA (cerebral vascular accident) Social History Smoking Status: Former smoker quit date: 09/16/21 Tobacco: How many years used: 30 how long ago did patient quit smokin-4 months ago second hand exposure: Yes alcohol intake: former details: August 2021 substance use type: does not use seatbelt use: sometimes do you feel safe at home: Yes ROS Constitutional Constitutional: Reports systems reviewed and no addt'l complaints, except as documented, fatigue and other Details: Lost weight perioperatively, is regaining now ; Denies anorexia, fever(s) or weight loss Eyes Eyes: Reports systems reviewed and no addt'l complaints, except as documented; Denies change in vision ENT HEENT: Reports systems reviewed and no addt'l complaints, except as documented, dry mouth, hearing loss, hoarseness, mouth pain and other Details: Average use of oxycodone is twice daily ; Denies mouth lesions Cardiovascular Cardiovascular: Reports systems reviewed and no addt'l complaints, except as documented, edema and other Details: Painless, left leg, new onset following surgery of October 2021 ; Denies chest pain with activity Respiratory/Chest Respiratory/Chest: Reports systems reviewed and no addt'l complaints, except as documented; Denies cough or dyspnea Gastrointestinal Gastrointestinal: Reports systems reviewed and no addt'l complaints, except as documented; Denies change in bowel habits, hematochezia or melena Genitourinary Genitourinary: Reports systems reviewed and no addt'l complaints, except as documented; Denies hematuria Musculoskeletal Musculoskeletal: Reports systems reviewed and no addt'l complaints, except as documented; Denies arthralgias Integumentary Integumentary: Reports systems reviewed and no addt'l complaints, except as documented; Denies rash Neurologic Neurologic: Reports systems reviewed and no addt'l complaints, except as documented; Denies headache(s) Psychiatric Psychiatric: Reports systems reviewed and no addt'l complaints, except as documented Endocrine Endocrinology: Reports systems reviewed and no addt'l complaints, except as documented Hematologic/Lymphatic Hematologic/Lymphatic: Reports systems reviewed and no addt'l complaints, except as documented; Denies easy bleeding, easy bruising or lymphadenopathy Allergic/Immunologic Allergic/Immunologic: Reports systems reviewed and no addt'l complaints, except as documented Intake Vital Signs 01/03/22 09:38 Height 5 ft 5 in Weight: 57.606 kg BMI 21.1 BP 123/64 H Blood Pressure Location Rt brachial Position Sitting Respiration 18 Pulse 77 Pulse Source Monitor Temp 99.2 F H Temperature Source Temporal Artery Pulse Oximetry (%) 99 Oxygen Delivery Method room air Intake Is patient in pain?: No Allergies No Known Allergies Allergy (Verified 01/03/22 09:22) Medications Levothyroxine 75 mg PO DAILY 08/25/20 [History Confirmed 01/03/22] pentoxifylline 400 mg tablet,extended release 400 mg PO TID #90 tab 05/17/21 [Rx Confirmed 01/03/22] vitamin E mixed 1,000 unit capsule 1,000 unit PO DAILY #30 cap 05/17/21 [Rx Confirmed 01/03/22] albuterol sulfate 1.25 mg INHALATION Q4H PRN #90 ml 12/10/21 [Rx Confirmed 01/03/22] sulfamethoxazole-trimethoprim 20 ml FEEDING TUBE BID 3 Days #120 ml 12/15/21 [Rx Confirmed 01/03/22] doxycycline monohydrate 25 mg/5 mL oral suspension 100 mg PO BID #280 ml 12/27/21 [Rx Confirmed 01/03/22] Central Venous Access Central Venous Access: No Exam Physical Exam Narrative ECOG 1 Hard of hearing Const alert, oriented x3 and no apparent distress General Appearance: cooperative and comfortable HEENT normocephalic HEENT Narrative: Reconstruction of the lower face, soft tissue edema Mouth: thrush Eyes General Eye: normal appearance of both eyes Conjunctiva: conjunctiva normal Sclera: sclera normal Neck no lymphadenopathy and no JVD Neck Narrative: Postoperative changes including flap. There is residual tissue edema General: tracheostomy present Lymph Lymphatic: no lymphadenopathy noted Chest Chest: symmetrical chest wall rise Resp Auscultation: diminished lung sounds bilateral and diffuse Cardio regular rate and regular rhythm Jugular Venous Distention: Negative for JVD GI soft to palpation, non-tender and non-distended; Negative for hepatosplenomegaly GI Narrative: PEG tube no CVA tenderness Back/Spine no thoracic nor lumbar tenderness Extremity General Extremity: edema left lower extremity; Negative for clubbing or cyanosis Skin no rashes or lesions noted Neuro oriented x3, CN's II-XII intact bilaterally and moves all extremities Neuro Narrative: Bilateral symmetric wasting of first interosseous muscles. 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 Patient is status post tonsillectomies and uveal excision yet no primary identified. Received concomitant chemoradiation January through March 2019 tolerated with expected but no excessive toxicities. He is in complete remission now and is on surveillance with no evidence to suggest cancer recurrence. Residual posttreatment skin hyperpigmentation and induration in the neck area and dry mouth. Indeterminate too small to further characterize lung nodules on initial staging chest CT of November 2018 remains stable for 2 years on imaging through February 2021. 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 Restaging did not suggest systemic disease. October 2021 he underwent radical surgery. Started adjuvant combined modality therapy with radiation and weekly carboplatin chemosensitization December 20, 2021. Comorbid conditions: Smoking and excessive alcohol until the time of diagnosis of malignancy. He continued to smoke after the first line of therapy Plan: 1-continue postoperative adjuvant radiation therapy due to high risk for local recurrence of the disease. 2-oral thrush, nystatin. 3. Pain, continue oxycodone as needed Impression and plan reviewed with patient . Quincy Simpson MD Environmental Services Floor Tech, [facility] Divisions of Medical Oncology Hematology Department of Internal Medicine [place] [phone] This note was generated using a voice recognition system software. Although it was reviewed by the author prior to finalization, it may still contain incorrect words, spelling, and punctuation that were not noted when reviewing prior to saving. If a clinically significant typo or inaccurately typed phrase is noted, please notify the author. 01/03/22 1013 <Electronically signed by Quincy Simpson MD> Date Quincy Simpson MD Cosigner Signature: Date (if applicable) CC: Kya Gonzalez Work Phone: Start: 12-27-2021 End: 12-29-2021 Radiation Oncology Visit Comments: See Note; NOTES: [facility] [address] [place] [address] OFFICE VISIT Date of Service: 12/27/21 1048 MR#: [id number] Acct: [id number] Name: MY JAMA Rep #: [id number] : 1960 From: Santiago Sellers DO Age/Sex: 61/M Location: [facility] [place] Status: Signed Intake Intake Visit Reasons: OTV Chief Complaint: Recurrent squamous cell cancer of the head and neck on treatment Allergies No Known Allergies Allergy (Verified 12/27/21 09:00) PFSH PFSH Medical History Acid reflux Anemia Cancer related pain Difficulty swallowing Epigastric pain Hypertension malignant squamous cell carcinoma lt neck Mass of left side of neck peg tube removed Allergy/AdvReac Type Severity Reaction Status Date / Time No Known Allergies Allergy Verified 12/27/21 09:00 Family History Mother CVA (cerebral vascular accident) Surgical History (Updated 12/27/21 @ 09:03 by Sunshine Man) history of biopsy neck History of removal of Port-a-Cath Hx of tonsillectomy S/P percutaneous endoscopic gastrostomy (PEG) tube placement ( 01/26/19) s/p port placement ( 01/26/19) Social History (Updated 12/27/21 @ 09:04 by Sunshine Man) Smoking Status: Former smoker quit date: 09/16/21 Tobacco: How many years used: 30 how long ago did patient quit smokin-4 months ago second hand exposure: Yes alcohol intake: former details: August 2021 substance use type: does not use seatbelt use: sometimes do you feel safe at home: Yes Diagnosis: My Jama is a 58-year-old male diagnosed with 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 From 02/10/2019 ??? 03/25/2019 he received definitive chemoradiation therapy consisting of 6996 cGy in 33 fractions with concurrent high dose cisplatin. 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 Plan: Plan was made to complete reirradiation with concurrent chemotherapy consisting of 6600 cGy delivered to the area concerning for close/positive margin and 5940 centigrade delivered to the flap based reconstruction and right neck levels 1 through 4. Treatment Data: Treatment Site: Oral Cavity/Right neck Current total dose/Total dose planned: 1000 cGy / 6600 cGy Fraction number: Chemotherapy: weekly carboplatin Subjective: Pain: 3-, jaw and leg (flap donor site) Fatigue: none ENT: no mucositis. No odynophagia or dysphagia. Normal taste, Xerostomia at baseline, using rinses Skin: no erythema, rash, desquamation. Significant scabbing around flap, planning for antibiotics per ENT - Pt never picked up antibiotics, these are being delivered to infusion today per med onc BOOTH CLEANER Nutrition/weight: Weight stable. Small volume mostly soft diet by mouth. 6-7 TFs per day Rinses: Not doing baking soda/salt rises. Not doing green tea rinses Respiratory: no cough, SOB Objective: Weight: 125 lbs Physical Exam: Gen: NAD ENT: no mucositis. No thrush or visualized lesions in the oral cavity or oropharynx. Well healed flap based reconstruction. Skin: no erythema, rash, desquamation. Left neck with fibrosis. Significant scabbing around flap and involving neck incision. 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 I reviewed and approved all treatment associated imaging. No treatment associated toxicities are noted at this time Possibly post surgical cellulitis of flap and neck incision, Antibiotic never started but will start today. Only slight erythema so OK to proceed with chemo and RT today. Discussed with Med Onc BOOTH CLEANER Plan: Continue treatment as planned. I have reviewed potential treatment associated toxicities as well as timing for resolution and management. Skin: Skin care reviewed, continue lotion at least bid, vasaline on scabbing per ENT Pain: mild, continue oxycodone bid Rinses: recommended baking soda/salt rinses 4-6/d, green tea rinses 2-3/d Follow up next week or sooner if needed. 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 [place] [address] OFFICE VISIT Date of Service: 12/27/2158 MR#: [id number] Acct: [id number] Name: MY JAMA Rep #: [id number] : 1960 From: Marce Maxwell NP BOOTH CLEANER -C Age/Sex: 61/M [place] [facility] [place] Status: Signed HPI Subjective Date of Service 12/27/21 Chief Complaint Recurrent squamous cell cancer of the head and neck on treatment History of Present Illness 61-year-old male Ex-smoker and heavy alcohol user who presented with a painless left neck mass that progressively increased in size over the course of the past couple of months. December 17, 2018 CT soft tissues of the neck: FINDINGS: There is a rim-enhancing centrally cystic mass distal to the angle the mandible, lateral to the hyoid cartilage, along the anterior margin of the sternocleidomastoid muscle. Wall thickness up to 4.9 mm. Process measures approximately 1.8 cm craniocaudal, 1.8 cm transverse, 2.9 cm anterior-posterior. Posteriorly and deep to the sternomastoid muscle, single mildly enlarged lymph node measuring 1.2 x 1.6 cm. A few additional shotty lymph nodes are present on the left. Normal thyroid. Normal submandibular glands and parotid glands. There is no right cervical lymphadenopathy. Pharyngeal and laryngeal soft tissues appear normal. Multilevel cervical spondylosis with disc disease most notable at C5-C6 with uncovertebral joint hypertrophy contributing to mild foraminal narrowing. Mucoperiosteal thickening and mucous retention cysts of the maxillary sinuses. Solitary opacified posterior right ethmoid sinus. Mastoid air cells and middle ear cavities clear. 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 December 17, 2018 CT chest: FINDINGS: Supraclavicular: No acute process within the [id number]. Body wall soft tissues: No acute process. Upper abdomen: No acute process. Osseous structures: No acute process. Mild scoliosis, moderate kyphosis, mild multilevel thoracic spondylosis. Mediastinum: No acute process. Cardiovascular: No acute process. Lungs: A few small scattered pulmonary nodules are present. The largest is in the right upper lobe anterior segment, series 6 image 73, 5 cm, solid features, smooth margins. Unremarkable airways. IMPRESSION: No acute thoracic process is evident. Small pulmonary nodules. The largest measures approximately 5 mm. Follow-up low-dose CT chest is recommended in 1 year for pulmonary nodule surveillance purposes. December 22, 2018 DIAGNOSIS CYTOLOGY A. 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 See comment. B. 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 ANTIBODY / CLONE RESULT Block A AE1-3 (AE1/AE3/PCK26) positive CK7 (OV-TL12/30) negative CK8 (06guxfW48) positive, weak CK20 (KS20.8) negative TTF-1 (8G7G3/1) negative Napsin A (Rabbit Polyclonal) negative HepPar (OCh1E5) negative RCC (PN-15) negative PSAP (PASE/4LJ) negative CK5-6 (D5 1684) positive P16 (E6H4) negative P40 (BC28) positive, focal January 02, 2019: Patient was evaluated by ENT : oral and oropharyngeal mucosa were normal. Flexible laryngoscopy was performed which demonstrated no evidence of lesion. Small cystic lesion of the uvula was felt to be benign. January 05, 2019 PET/CT: IMPRESSION: 1. ABNORMAL EXAMINATION INDICATIVE OF MALIGNANT-VIABLE NEOPLASM. 2. Increased glucose concentration observed in the left lateral neck fulfills quantitative criteria for viable neoplasm. 3. Asymmetric enhanced FDG distribution noted in the left pharyngeal mucosal space may be further investigated with rigorous clinical examination. 4. No other quantitatively significant hypermetabolic abnormalities are noted. There is no definitive scintigraphic evidence of distant metastatic disease. January 30, 2019: left tonsil excision and uvula excision. Pathology displayed no evidence of malignancy or high-grade squamous dysplasia. There was noted to be submucosal dilated minor salivary gland duct with oncocytic metaplasia in the uvula. In preparation for locoregional combined chemoradiation patient Patient underwent multiple dental extractions, placement of PEG tube and port. February 10 through March 25, 2019 combined modality therapy (see below for details) May 13, 2019: CT chest: Comparison is made with prior study in December 17, 2018 There is persistent multifocal nodular pleural thickening or tiny pleural-based nodules in the lower lobes which are unchanged in size or number since previous study. The dominant nodule in the right lower lobe is not changed appreciably in size since prior exam June 29, 2019 PET/CT: IMPRESSION: 1. NEGATIVE EXAMINATION. There is no definitive quantitative scintigraphic evidence of recurrent-metastatic viable neoplasm. 2. There is interval metabolic resolution of the previously identified left lateral neck and left pharyngeal mucosal space hypermetabolic abnormalities. 3. Overall, compared to the prior FDG PET study dated 01/05/19, there is current absence of defined viable neoplastic disease with interval resolution of the prior defined hypermetabolic foci, as articulated above. October 07, 2019 CT chest: IMPRESSION: Normal enhanced CT Chest examination. April 06, 2020 CT chest: IMPRESSION: 1. Bilateral pulmonary nodules, stable in the interval. Appropriate follow-up using Fleischner Society criteria is recommended. 2. Dilatation of the main pulmonary artery measuring up to 3.2 cm in diameter. This may be associated with pulmonary hypertension. 3. Increased thoracic kyphosis. Diffuse endplate spondylosis of the visualized cervical, thoracic, and lumbar spine. No lytic or blastic osseous changes are seen. September 02, 2020 CT chest: FINDINGS: Lungs are severely emphysematous with multiple scattered stable nodules. There is a new small, 3 mm nodule in the anterior segment of the right upper lobe, image 36/136 series #4. Remainder of the nodules are stable since priors and are all less than 5 mm and low risk appearing. Additional 1 -- 2 mm nodules are present and are too small to reliably characterize between the current and prior scan due to differences in technique, inspiration, etc. Central airways are patent. Pleural surfaces are intact. Mediastinal contents are normal. Cardiac chambers are normal in size and shape. Pericardium is normal. Osseous structures are intact with exaggerated lower thoracic kyphosis without osseous lesions. Upper abdominal structures are normal. IMPRESSION: 1. Severe emphysema. 2. Multiple low risk and stable over many nodules. CT chest February 27, 2021 IMPRESSION: Stable examination. Stable emphysematous changes. CT neck August 23, 2021: demonstrated evidence of bony destruction involving the mid anterior aspect of the mandible. The transverse dimension of the destruction measures 2.1 cm. There appears to be a 2.6 x 3.7 cm soft tissue mass overlying the anterior aspect of the midportion of the mandible, should rule out neoplastic process. No other abnormalities are appreciated. PET/CT restaging October 11, 2021: demonstrated heterogeneous increased FDG distribution defined in the anterior midline mandible extending into the periosseous soft tissue anteriorly with a calculated max of SUV of 12 maximum diameter of 5.1 x 5.5 cm. No other quantitatively significant hypermetabolic abnormalities are noted. November 07, 2021 direct laryngoscopy, flexible bronchoscopy, flexible esophagoscopy, PEG tube placement, tracheostomy, composite resection of oral cavity, excision of skin and soft tissue measuring 8 x 9 cm, segmental mandibulectomy, right selective neck dissection of levels 1 through 4 and left neck exploration with reconstruction with thigh free flap and had complex neck closure with split thickness skin graft. 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 There was skin invasion present. LVSI not identified. PNI present and focal. Right posterior floor of mouth mucosal margin is involved by invasive carcinoma, left posterior floor of mouth margin is involved by high-grade dysplasia/in situ disease. Right skin soft tissue margin is less than 1 mm, right oral soft tissue margin is 1.5 mm, posterior soft tissue margin is 2.5-3 mm. 3 lymph nodes were involved 2 involving the right level 1 and 1 involving the right level 4, largest deposit was 3 mm and no DEREK was noted. November 09, 2021 postoperative course was complicated by arterial clotting and taken back to the OR for arterial release, flap checks were stable following the takeback. Treatment summary: * Combined high-dose cisplatin and radiation January through March 2019: 6996 cGy delivered to gross disease involving the left neck, 5940 cGy to the high risk mucosal sites (entire oropharynx) and high risk lymph node sites (left levels 2-5), and 5412 cGy delivered to the low risk mucosal sites (nasopharynx, larynx, hypopharynx) bilateral high level 2, bilateral supraclavicular fossa, and right neck levels 2-5). The patient did receive concurrent chemotherapy with high dose cisplatin (cycle 1: 02/10, cycle 2: 03/02, cycle 3: 03/23). Date of First Treatment: 02/10/2019 Date of Last Treatment: 03/25/2019 * November 07, 2021 direct laryngoscopy, flexible bronchoscopy, flexible esophagoscopy, PEG tube placement, tracheostomy, composite resection of oral cavity, excision of skin and soft tissue measuring 8 x 9 cm, segmental mandibulectomy, right selective neck dissection of levels 1 through 4 and left neck exploration with reconstruction with thigh free flap and had complex neck closure with split thickness skin graft. * Adjuvant concurrent chemoradiation with carboplatin AUC 2 December 20, 2021-. Interval History The patient is presenting to clinic for an evaluation anticipating he will receive cycle 2 weekly carboplatin. Concerns today include sleep disturbance and confusion surrounding antibiotics. States he believed an atb was going to be called to [facility] in [place] last week, however pharmacy stated they never received rx. Prefers to sleep lying down, but is unable to as breathing is difficult lying supine. He does have a recliner in his home. Using PEG tube, estimates 6-8 cans of liquid nutrition daily, tolerates well. Admits he is not suctioning before bedtime or taking any water PO. Specifically denies fever/chills, sweats, headache, dizziness, CP, palpitations, abd pain, nausea, Chronic exertional dyspnea unchanged. [facility] Medical History (Updated 12/27/21 @ 12:21 by Marce Maxwell BOOTH CLEANER, BOOTH CLEANER-C) Acid reflux Anemia Cancer related pain Cellulitis Difficulty swallowing Epigastric pain Hypertension malignant squamous cell carcinoma lt neck Mass of left side of neck peg tube removed Sleep disturbance Surgical History (Updated 12/27/21 @ 09:03 by Sunshine Man) history of biopsy neck History of removal of Port-a-Cath Hx of tonsillectomy S/P percutaneous endoscopic gastrostomy (PEG) tube placement ( 01/26/19) s/p port placement ( 01/26/19) Family History Mother CVA (cerebral vascular accident) Social History (Updated 12/27/21 @ 09:04 by Sunshine Man) Smoking Status: Former smoker quit date: 09/16/21 Tobacco: How many years used: 30 how long ago did patient quit smokin-4 months ago second hand exposure: Yes alcohol intake: former details: August 2021 substance use type: does not use seatbelt use: sometimes do you feel safe at home: Yes ROS ROS Narrative Negative except as documented in the interval HPI Intake Vital Signs 12/27/21 08:59 Height 5 ft 5 in Weight: 123 lb 4 oz BMI 20.5 BP 138/72 H Blood Pressure Location Lt brachial Position Sitting Respiration 22 H Pulse 70 Pulse Source Monitor Temp 98.4 F Temperature Source Tympanic Pulse Oximetry (%) 96 Oxygen Delivery Method room air Intake Metal Hanging Helper Required: No Accompanied by: self Is patient in pain?: No Allergies No Known Allergies Allergy (Verified 12/27/21 09:00) Medications Levothyroxine 75 mg PO DAILY 08/25/20 [History Confirmed 12/27/21] pentoxifylline 400 mg tablet,extended release 400 mg PO TID #90 tab 05/17/21 [Rx Confirmed 12/27/21] vitamin E mixed 1,000 unit capsule 1,000 unit PO DAILY #30 cap 05/17/21 [Rx Confirmed 12/27/21] albuterol sulfate 1.25 mg INHALATION Q4H PRN #90 ml 12/10/21 [Rx Confirmed 12/27/21] sulfamethoxazole-trimethoprim 20 ml FEEDING TUBE BID 3 Days #120 ml 12/15/21 [Rx Confirmed 12/20/21] oxycodone 5 mg tablet 5 mg PO BID PRN 14 Days #30 tab 12/20/21 [Rx Confirmed 12/27/21] doxycycline monohydrate 25 mg/5 mL oral suspension 100 mg PO BID #280 ml 12/27/21 [Rx Confirmed 12/27/21] Laboratory Tests 12/27/21 12/27/21 08:35 08:35 WBC 6.2 Hgb 10.5 L Plt Count 376 Sodium 129 L Chloride 94 L BUN 8 Creatinine 0.32 L Calcium 8.8 Exam Physical Exam Narrative ECOG 1 Hard of hearing Const alert, oriented x3 and no apparent distress General Appearance: cooperative and comfortable HEENT normocephalic HEENT Narrative: Reconstruction of the lower face, soft tissue edema Mouth: No thrush Eyes General Eye: normal appearance of both eyes Conjunctiva: conjunctiva normal Sclera: sclera normal Neck no lymphadenopathy and no JVD Neck Narrative: Postoperative changes including flap. There is residual tissue edema, involving face, lips and chin. Incision around flap neck scabbed but moist. General: tracheostomy present Lymph Lymphatic: no lymphadenopathy noted Chest Chest: symmetrical chest wall rise Resp Auscultation: diminished lung sounds bilateral and diffuse Cardio regular rate and regular rhythm Jugular Venous Distention: Negative for JVD GI soft to palpation, non-tender and non-distended; Negative for hepatosplenomegaly GI Narrative: PEG tube no CVA tenderness Back/Spine no thoracic nor lumbar tenderness Extremity General Extremity: edema left lower extremity; Negative for clubbing or cyanosis Skin no rashes or lesions noted Neuro oriented x3, CN's II-XII intact bilaterally and moves all extremities Neuro Narrative: Bilateral symmetric wasting of first interosseous muscles. 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 (2) Head and neck cancer: Status: Chronic (3) Lung nodules: Status: Chronic Comment: Stable for more than 2 years (4) Delayed surgical wound healing: Status: Acute Qualifiers: Encounter type: subsequent encounter Qualified Code(s): T81.89XD - Other complications of procedures, not elsewhere classified, subsequent encounter (5) Sleep disturbance: Status: Acute Medications: New: doxycycline monohydrate 100 mg (20 mL) PO BID 280 mL 0RF T81.89XD Plan - Marce Maxwell BOOTH CLEANER, BOOTH CLEANER-C: 61-year-old male ex-smoker, in addition to excessive alcohol consumption until the diagnosis and start of treatment of 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 Patient is status post tonsillectomies and uveal excision yet no primary identified. Received concomitant chemoradiation January through March 2019 tolerated with expected but no excessive toxicities. He is in complete remission now and is on surveillance with no evidence to suggest cancer recurrence. Residual posttreatment skin hyperpigmentation and induration in the neck area and dry mouth. Indeterminate too small to further characterize lung nodules on initial staging chest CT of November 2018 remains stable for 2 years on imaging through February 2021. 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 Restaging did not suggest systemic disease. October 2021 he underwent radical surgery. December 20, 2021 began adjuvant concomitant radiation sensitization with single agent carboplatin on a weekly schedule. Comorbid conditions: Smoking and excessive alcohol until the time of diagnosis of malignancy. He continued to smoke after the first line of therapy Plan: 1- Labs reviewed, Cr stable. CBC shows continued mild anemia as evidenced by Hgb 10.5, values are within acceptable parameters for treatment. He is otherwise not endorsing any s/sx of toxicity from carboplatin and will proceed with cyce 2 today. 2- Open surgical wound- moist. Low concern for MRSA, will send rx for doxycycline. Will have [facility] retail deliver to confirm patient goes home with atb. Rad onc provider examined patient to confirm he will proceed with radiation treatment this week. 3. Sleep disturbance- Reinforced ENT, Dr. Brooks's instructions to sleep up right in recliner, suction trach before bedtime and remove cap from trach to sleep. Plan Details Other Medications: New: doxycycline monohydrate 100 mg (20 mL) PO BID 280 mL 0RF L03.90 Follow Up: 1 Week (cycle 3 carboplatin) 12/27/21 1222 <Electronically signed by Marce Maxwell NP BOOTH CLEANER-C> Date Marce Maxwell NP BOOTH CLEANER-C Cosigner Signature: Date (if applicable) CC: BOOTH CLEANER-C Kya Gonzalez Kya Gonzalez Work Phone: Start: 12-20-2021 End: 12-20-2021 Radiation Oncology Visit Comments: See Note; NOTES: [facility] [address] [place] [id number] OFFICE VISIT Date of Service: 12/20/21 1113 MR#: [id number] Acct: [id number] Name: MY JAMA Rep #: [id number] : 1960 From: Santiago Sellers Age/Sex: 61/M [place] [facility] [place] Status: Signed Intake Vital Signs 12/20/21 11:13 Blood Pressure Location Rt brachial Position Sitting Respiration 18 Pulse 69 Pulse Source Monitor Temp 98.3 F Temperature Source Tympanic Pulse Oximetry (%) 98 Oxygen Delivery Method room air Intake Visit Reasons: OTV Chief Complaint: Recurrent squamous cell cancer of the head and neck on treatment Metal Hanging Helper Required: No Is patient in pain?: Yes (post op pain ) Pain scale (1-10): 6 Allergies No Known Allergies Allergy (Verified 12/20/21 11:14) Medications Levothyroxine 75 mg PO DAILY 08/25/20 [History Confirmed 12/20/21] pentoxifylline 400 mg tablet,extended release 400 mg PO TID #90 tab 05/17/21 [Rx Confirmed 12/20/21] vitamin E mixed 1,000 unit capsule 1,000 unit PO DAILY #30 cap 05/17/21 [Rx Confirmed 12/20/21] albuterol sulfate 1.25 mg INHALATION Q4H PRN #90 ml 12/10/21 [Rx Confirmed 12/20/21] sulfamethoxazole-trimethoprim 20 ml FEEDING TUBE BID 3 Days #120 ml 12/15/21 [Rx Confirmed 12/20/21] oxycodone 5 mg tablet 5 mg PO BID PRN 14 Days #30 tab 12/20/21 [Rx Confirmed 12/20/21] [facility] Medical History Acid reflux Anemia Cancer related pain Difficulty swallowing Epigastric pain Hypertension malignant squamous cell carcinoma lt neck Mass of left side of neck peg tube removed Home Medications Levothyroxine 75 mg PO DAILY 08/25/20 [History Last Taken Unknown] pentoxifylline 400 mg tablet,extended release 400 mg PO TID #90 tab 05/17/21 [Rx Last Taken Unknown] vitamin E mixed 1,000 unit capsule 1,000 unit PO DAILY #30 cap 05/17/21 [Rx Last Taken Unknown] albuterol sulfate 1.25 mg INHALATION Q4H PRN #90 ml 12/10/21 [Rx Last Taken Unknown] sulfamethoxazole-trimethoprim 20 ml FEEDING TUBE BID 3 Days #120 ml 12/15/21 [Rx Last Taken Unknown] oxycodone 5 mg tablet 5 mg PO BID PRN 14 Days #30 tab 12/20/21 [Rx Last Taken Unknown] Allergy/AdvReac Type Severity Reaction Status Date / Time No Known Allergies Allergy Verified 12/20/21 11:14 Family History (System 12/18/21 @ 12:36 by Koki Zamorano) Mother CVA (cerebral vascular accident) Surgical History history of biopsy neck History of removal of Port-a-Cath S/P percutaneous endoscopic gastrostomy (PEG) tube placement ( 01/26/19) s/p port placement ( 01/26/19) Social History (System 12/18/21 @ 12:36 by Koki Zamorano) Smoking Status: Former smoker quit date: 09/16/21 Tobacco: How many years used: 30 how long ago did patient quit smokin-4 months ago second hand exposure: Yes alcohol intake: current alcohol intake frequency: a few times a week substance use type: does not use seatbelt use: sometimes do you feel safe at home: Yes Diagnosis: My Jama is a 58-year-old male diagnosed with 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 From 02/10/2019 ??? 03/25/2019 he received definitive chemoradiation therapy consisting of 6996 cGy in 33 fractions with concurrent high dose cisplatin. 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 Plan: Plan was made to complete reirradiation with concurrent chemotherapy consisting of 6600 cGy delivered to the area concerning for close/positive margin and 5940 centigrade delivered to the flap based reconstruction and right neck levels 1 through 4. Treatment Data: Treatment Site: Oral Cavity/Right neck Current total dose/Total dose planned: 200 cGy / 6600 cGy Fraction number: Chemotherapy: weekly carboplatin Subjective: Pain: 3-4 / 10, jaw and leg (flap donor site) Fatigue: none ENT: no mucositis. No odynophagia or dysphagia. Normal taste, Xerostomia at baseline, using rinses Skin: no erythema, rash, desquamation. Significant scabbing around flap, planning for antibiotics per ENT Nutrition/weight: Weight stable. Small volume mostly soft diet by mouth. 6-7 TFs per day Rinses: Not doing baking soda/salt rises. Not doing green tea rinses Respiratory: no cough, SOB Objective: Weight: 125 lbs Physical Exam: Gen: NAD ENT: no mucositis. No thrush or visualized lesions in the oral cavity or oropharynx. Well healed flap based reconstruction. Skin: no erythema, rash, desquamation. Left neck with fibrosis. 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 I reviewed and approved all treatment associated imaging. No treatment associated toxicities are noted at this time Possibly post surgical cellulitis of flap and neck incision, starting antibiotics today per ENT Plan: Continue treatment as planned. I have reviewed potential treatment associated toxicities as well as timing for resolution and management. Skin: Skin care reviewed, continue lotion at least bid, vasaline on scabbing per ENT Pain: mild, continue oxycodone bid Rinses: recommended baking soda/salt rinses 4-6/d, green tea rinses 2-3/d Follow up next week or sooner if needed. Thank you for allowing me to participate in the management and care of your patient. If I may answer any questions in the interim, please do not hesitate to contact me at any time. 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 [address] [place] [address] / REHABILITATION SERVICES INITIAL EVALUATION MR#: [id number] Acct: [id number] Name: MY JAMA Rep #: [id number] : 1960 61 From: Latosha Boyer M.A., CCC-ADVANCED PRACTICE REGISTERED NURSE Referring Dr.: Dr. 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 Recommendations are for a mechanical soft textured and thin liquid diet. Exercises and other strategies were recommended, and speech therapy will continue to follow-up. 03/30/2020: swallow study was performed. Recommendations are for regular/soft textured and thin liquid diet. Other Relevant Medical History/Diagnoses/Surgery: The pt is a 61-year-old male diagnosed with clinical stage NOREEN (cTx cN2b M0) p16 negative SCC of unknown primary with left neck adenopathy in level 2-[address] neck and chest (12/17/2018), ultrasound-guided FNA of the left neck mass (12/22/2018), PET scan (01/05/2019), triple endoscopy with targeted left tonsillectomy (01/30/2019). From 02/10/2019 ??? 03/25/2019 he received definitive chemoradiation therapy consisting of 6996 cGy in 33 fractions with concurrent high dose cisplatin. 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 The pt is planned for radiation therapy with plans to meet with medical oncology soon to discuss the addition of chemotherapy. 11/07/2021: Patient underwent direct laryngoscopy, flexible bronchoscopy, flexible esophagoscopy, PEG tube placement, tracheostomy, composite resection of oral cavity, excision of skin and soft tissue measuring 8 x 9 cm, segmental mandibulectomy, right selective neck dissection of levels 1 through 4 and left neck exploration for vessels. Reconstruction was thigh free flap and had complex neck closure with split thickness skin graft. Trach and PEG tube placed. 11/09/2021. Postoperative course was complicated by arterial clotting and taken back to the OR for arterial release, flap checks were stable following the takeback. 12/05/2021: Trach re-inserted due to difficulty breathing when lying flat. 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 He feels restricted lingual ROM due to edema. Objective Oral Motor - Oral Status Additional: Edentulous - FOM with severe edema. - Labial Impairment: Mild Pucker: Moderate Retraction: Mild - Labial Comments Comments: Severe edema - Lingual Impairment: Mild Protrusion: Moderate Lateralization: Mild - Jaw Impairment: Mild Opening: Severe Opening Measurement: 21mm - Jaw Comments Comments: Severe edema along jawline, especially under chin - Oral Motor Comments Comments: TRIGEMINAL NERVE (V) ??? Decreased laryngeal elevation upon palpation ??? pt???s neck with severe fibrosis from previous radiation treatment, especially on L side. FACIAL NERVE (VII) ??? no clinical abnormalities observed. VAGUS NERVE (X) ??? Unable to inspect palate due to edema. Palate sensation intact bilaterally. Hoarse vocal quality. HYPOGLOSSAL NERVE (XII) ??? no clinical abnormalities observed. - Respiratory Status Respiratory Status: Trach, Passy Eliane Speaking Valve Subjective Dysphagia - Symptoms Reported Symptoms/Problems with: Drooling, Difficulty Swallowing Solids, Difficulty Swallowing Pills - Current Diet Solids Current Diet: Soft, Mechanical Soft Other: noodle soup, soft meat loaf - Current Diet Liquids Current Liquids: Thin - NPO NPO - Alternative Nutrition Method: Gastrostomy Tube Objective Dysphagia - Thin Liquids Administred via: Cup Laryngeal Elevation: Impaired Comments: He consumed sips of water and coffee via cup during session with consistent anterior loss and wet vocal quality following 2 sips. - Pureed Laryngeal Elevation: Impaired Comments: Wet vocal quality following 1 bite, good oral clearance Dysphagia Assessment - Swallowing Impairment Contributing Factors to Swallowing Impairment: Reduced Oral Strength/Coordination/Sensati on, Mastication Inefficiency, Reduced Laryngeal Excursion Other: Trach in place, current radiation therapy to the neck - Impact Impact on Safety Functioning: Risk for Aspiration, Risk for Inadequate Nutrition/Hydration Comments: Educated pt in high risk for aspiration and worsening dysphagia s/p previous radiation treatment, current radiation therapy, and with presence of trach. Pt verbalized understanding; however, he requires continued education. - Recommendations Modified Barium Swallow/Cookie Swallow Recommended: Yes Swallowing Treatment: Yes - Diet Texture Recommendations Solids Other: Soft Liquids: Thin - Safety Saftey Precautions/Swallowing Recommendations (Check all that Apply): Upright Position at Least 30 Minutes After Meals, Small Sips Bites when Eating, Other (Specify Below) Other: Cough and re-swallow if wet vocal quality, slow rate FOIS - Functional Oral Intake Scale Tube dependent with consistent oral intake of food or liquid: Level 3 Other Impressions - Comments EAT-10 -: 3 Plan - Plan Plan: Will recommend the patient for skilled outpatient dysphagia therapy to address 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 Additionally, will provide ongoing assessment of diet tolerance during and post radiation treatment. Without skilled ST services, the patient is at risk for aspiration, weight loss, and malnutrition. - Recommendations MBS: Yes Treatment Warranted: Yes - Frequency Frequency: 1x/Week - Prognosis Prognosis: Good - Goals that are Established: Determination:: Goals will be added/modified as deemed necessary and appropriate. Therapy will be discontinued when results of re-evaluation indicate therapy is no longer needed or lack of progress has been documented. - Goal #1-5 Goal #1: The patient will consume least restrictive diet textures without overt s/s of aspiration with minimal verbal cues for use of compensatory strategies to decrease risk for aspiration. Goal #2: The patient will complete an oropharyngeal exercise program (effortful swallows) during and post chemoradiation treatment independently to improve and maintain strength, ROM, and coordination of swallowing mechanism (X10-20 repetitions, 3-5X daily). Goal #3: The patient will complete jaw strength, coordination, and ROM exercises during and post chemoradiation treatment independently to improve and maintain mastication and speech abilities (X10 repetitions, 3-5X daily). Goal #4: The patient will participate in MBS study to objectively assess swallow function and provide recommendations for safest, least restrictive diet and compensatory strategies to reduce risk for aspiration. Goal #5: The patient will participate in ongoing education re: short-term and long-term effects of chemoradiation treatment on swallow function and management of symptoms that contribute to dysphagia. Education - Patient has Indicated that the Following Other Educational Needs: Hard of hearing - Patient Instruction Patient Education: Treatment Plan, Goals, Safety Precautions, Diet Level, Home Exercise Program Other Education: Education provided regarding the potential impacts of radiation treatment on swallow function during and post treatment, including effects such as mucositis, radiation fibrosis, and disuse atrophy which may result in restricted range of motion and weakness of swallowing mechanism. Also discussed current trach placement placing patient at higher risk for aspiration. Encouraged use of PMSV for both speech and swallowing throughout his day to improve swallow function. Discussed impaired swallowing and increased risk for aspiration, aspiration related illnesses, weight loss, and malnutrition. Discussed importance for speech therapy to monitor and address dysphagia both during and post chemoradiation treatment to maintain optimal swallow function through continued education and prophylactic oropharyngeal and jaw exercise program. Provided the patient a handout and demonstration of exercises. The patient would benefit from continued training to monitor proper execution of exercises and encourage strict adherence to exercise program. Person Taught: Patient Teaching Method: Discussion, Demonstration, Handout Response to teaching: Verbalize understanding, Reinforcement needed <Electronically signed by Latosha Boyer M.A., CCC-ADVANCED PRACTICE REGISTERED NURSE> 12/20/21 1105 CC: YARI Gonzalez; Dr. Santiago Sellers DO MW Signed Kya Gonzalez Work Phone: Start: 12-18-2021 End: 12-18-2021 Venous Duplex US, Unilateral Comments: See Note; NOTES: [facility] [address] [place] [address] Venous Duplex US, Unilateral 12/18/21 0958 MR#: [id number] Acct: [id number] Name: MY JAMA Rep #: [id number] : 1960 61 From: Donaldo Nichole MD Attending Dr: Dr. Quincy Simpson MD Status: REG CLI Ordering Dr: Quincy Simpson MD Date: 12/18/21 Location: [facility] Sex: M C Admitted: Reason For Study: Swelling Procedure LEFT This is a venous duplex using B-mode, color GSV is normal. flow and spectral Doppler. CFV is compressible, spontaneous, phasic, Exam performed in department. competent, and demonstrates normal A preliminary report was called and/or faxed augmentation. to Tatiana. FV is compressible, spontaneous, phasic, competent and demonstrates normal augmentation. POP V is compressible, spontaneous, phasic, competent and demonstrates normal augmentation. T/P Trunk is compressible. PTV is compressible. LT PerV is compressible. VL/Venous Duplex US, Unilateral Interpretation Summary There is no evidence of left lower extremity deep vein thrombosis. Left great saphenous vein appears patent and compressible segmentally. _ Ordering Physician: Quincy Simpson Referring Physician: Kya Gonzalez Performed By: Janette Gaffney RVT 12/18/211919 Date Donaldo Nichole MD CC: BOOTH CLEANER-C Kya Gonzalez; Dr. Quincy Simpson MD Date Dictated: 12/18/2158 Date Transcribed: 12/18/211919 Wood Router Hand: Signed Kya Gonzalez Work Phone: Start: 12-18-2021 End: 12-18-2021 Oncology Visit Report Comments: See Note; NOTES: [facility] [address] [place] [address] OFFICE VISIT Date of Service: 12/18/2148 MR#: [id number] Acct: [id number] Name: MY JAMA Rep #: [id number] : 1960 From: Quincy Simpson MD Age/Sex: 61/M [place] [facility] Status: Signed HPI Subjective Date of Service 12/18/21 Chief Complaint Recurrent squamous cell cancer of the head and neck History of Present Illness 61-year-old male Ex-smoker and alcoholic who presented with a painless left neck mass that has progressively increased in size over the course of the past couple of months. December 17, 2018 CT soft tissues of the neck: FINDINGS: There is a rim-enhancing centrally cystic mass distal to the angle the mandible, lateral to the hyoid cartilage, along the anterior margin of the sternocleidomastoid muscle. Wall thickness up to 4.9 mm. Process measures approximately 1.8 cm craniocaudal, 1.8 cm transverse, 2.9 cm anterior-posterior. Posteriorly and deep to the sternomastoid muscle, single mildly enlarged lymph node measuring 1.2 x 1.6 cm. A few additional shotty lymph nodes are present on the left. Normal thyroid. Normal submandibular glands and parotid glands. There is no right cervical lymphadenopathy. Pharyngeal and laryngeal soft tissues appear normal. Multilevel cervical spondylosis with disc disease most notable at C5-C6 with uncovertebral joint hypertrophy contributing to mild foraminal narrowing. Mucoperiosteal thickening and mucous retention cysts of the maxillary sinuses. Solitary opacified posterior right ethmoid sinus. Mastoid air cells and middle ear cavities clear. 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 December 17, 2018 CT chest: FINDINGS: Supraclavicular: No acute process within the [id number]. Body wall soft tissues: No acute process. Upper abdomen: No acute process. Osseous structures: No acute process. Mild scoliosis, moderate kyphosis, mild multilevel thoracic spondylosis. Mediastinum: No acute process. Cardiovascular: No acute process. Lungs: A few small scattered pulmonary nodules are present. The largest is in the right upper lobe anterior segment, series 6 image 73, 5 cm, solid features, smooth margins. Unremarkable airways. IMPRESSION: No acute thoracic process is evident. Small pulmonary nodules. The largest measures approximately 5 mm. Follow-up low-dose CT chest is recommended in 1 year for pulmonary nodule surveillance purposes. December 22, 2018 DIAGNOSIS CYTOLOGY A. 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 See comment. B. 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 ANTIBODY / CLONE RESULT Block A AE1-3 (AE1/AE3/PCK26) positive CK7 (OV-TL12/30) negative CK8 (21bgakK56) positive, weak CK20 (KS20.8) negative TTF-1 (8G7G3/1) negative Napsin A (Rabbit Polyclonal) negative HepPar (OCh1E5) negative RCC (PN-15) negative PSAP (PASE/4LJ) negative CK5-6 (D5 1684) positive P16 (E6H4) negative P40 (BC28) positive, focal January 02, 2019: Patient was evaluated by ENT : oral and oropharyngeal mucosa were normal. Flexible laryngoscopy was performed which demonstrated no evidence of lesion. Small cystic lesion of the uvula was felt to be benign. January 05, 2019 PET/CT: IMPRESSION: 1. ABNORMAL EXAMINATION INDICATIVE OF MALIGNANT-VIABLE NEOPLASM. 2. Increased glucose concentration observed in the left lateral neck fulfills quantitative criteria for viable neoplasm. 3. Asymmetric enhanced FDG distribution noted in the left pharyngeal mucosal space may be further investigated with rigorous clinical examination. 4. No other quantitatively significant hypermetabolic abnormalities are noted. There is no definitive scintigraphic evidence of distant metastatic disease. January 30, 2019: left tonsil excision and uvula excision. Pathology displayed no evidence of malignancy or high-grade squamous dysplasia. There was noted to be submucosal dilated minor salivary gland duct with oncocytic metaplasia in the uvula. In preparation for locoregional combined chemoradiation patient Patient underwent multiple dental extractions, placement of PEG tube and port. February 10 through March 25, 2019 combined modality therapy (see below for details) May 13, 2019: CT chest: Comparison is made with prior study in December 17, 2018 There is persistent multifocal nodular pleural thickening or tiny pleural-based nodules in the lower lobes which are unchanged in size or number since previous study. The dominant nodule in the right lower lobe is not changed appreciably in size since prior exam June 29, 2019 PET/CT: IMPRESSION: 1. NEGATIVE EXAMINATION. There is no definitive quantitative scintigraphic evidence of recurrent-metastatic viable neoplasm. 2. There is interval metabolic resolution of the previously identified left lateral neck and left pharyngeal mucosal space hypermetabolic abnormalities. 3. Overall, compared to the prior FDG PET study dated 01/05/19, there is current absence of defined viable neoplastic disease with interval resolution of the prior defined hypermetabolic foci, as articulated above. October 07, 2019 CT chest: IMPRESSION: Normal enhanced CT Chest examination. April 06, 2020 CT chest: IMPRESSION: 1. Bilateral pulmonary nodules, stable in the interval. Appropriate follow-up using Fleischner Society criteria is recommended. 2. Dilatation of the main pulmonary artery measuring up to 3.2 cm in diameter. This may be associated with pulmonary hypertension. 3. Increased thoracic kyphosis. Diffuse endplate spondylosis of the visualized cervical, thoracic, and lumbar spine. No lytic or blastic osseous changes are seen. September 02, 2020 CT chest: FINDINGS: Lungs are severely emphysematous with multiple scattered stable nodules. There is a new small, 3 mm nodule in the anterior segment of the right upper lobe, image 36/136 series #4. Remainder of the nodules are stable since priors and are all less than 5 mm and low risk appearing. Additional 1 -- 2 mm nodules are present and are too small to reliably characterize between the current and prior scan due to differences in technique, inspiration, etc. Central airways are patent. Pleural surfaces are intact. Mediastinal contents are normal. Cardiac chambers are normal in size and shape. Pericardium is normal. Osseous structures are intact with exaggerated lower thoracic kyphosis without osseous lesions. Upper abdominal structures are normal. IMPRESSION: 1. Severe emphysema. 2. Multiple low risk and stable over many nodules. CT chest February 27, 2021 IMPRESSION: Stable examination. Stable emphysematous changes. CT neck August 23, 2021: demonstrated evidence of bony destruction involving the mid anterior aspect of the mandible. The transverse dimension of the destruction measures 2.1 cm. There appears to be a 2.6 x 3.7 cm soft tissue mass overlying the anterior aspect of the midportion of the mandible, should rule out neoplastic process. No other abnormalities are appreciated. PET/CT restaging October 11, 2021: demonstrated heterogeneous increased FDG distribution defined in the anterior midline mandible extending into the periosseous soft tissue anteriorly with a calculated max of SUV of 12 maximum diameter of 5.1 x 5.5 cm. No other quantitatively significant hypermetabolic abnormalities are noted. November 07, 2021 direct laryngoscopy, flexible bronchoscopy, flexible esophagoscopy, PEG tube placement, tracheostomy, composite resection of oral cavity, excision of skin and soft tissue measuring 8 x 9 cm, segmental mandibulectomy, right selective neck dissection of levels 1 through 4 and left neck exploration with reconstruction with thigh free flap and had complex neck closure with split thickness skin graft. 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 There was skin invasion present. LVSI not identified. PNI present and focal. Right posterior floor of mouth mucosal margin is involved by invasive carcinoma, left posterior floor of mouth margin is involved by high-grade dysplasia/in situ disease. Right skin soft tissue margin is less than 1 mm, right oral soft tissue margin is 1.5 mm, posterior soft tissue margin is 2.5-3 mm. 3 lymph nodes were involved 2 involving the right level 1 and 1 involving the right level 4, largest deposit was 3 mm and no DEREK was noted. November 09, 2021 postoperative course was complicated by arterial clotting and taken back to the OR for arterial release, flap checks were stable following the takeback. Treatment summary: * Combined high-dose cisplatin and radiation January through March 2019: 6996 cGy delivered to gross disease involving the left neck, 5940 cGy to the high risk mucosal sites (entire oropharynx) and high risk lymph node sites (left levels 2-5), and 5412 cGy delivered to the low risk mucosal sites (nasopharynx, larynx, hypopharynx) bilateral high level 2, bilateral supraclavicular fossa, and right neck levels 2-5). The patient did receive concurrent chemotherapy with high dose cisplatin (cycle 1: 02/10, cycle 2: 03/02, cycle 3: 03/23). Date of First Treatment: 02/10/2019 Date of Last Treatment: 03/25/2019 * November 07, 2021 direct laryngoscopy, flexible bronchoscopy, flexible esophagoscopy, PEG tube placement, tracheostomy, composite resection of oral cavity, excision of skin and soft tissue m easuring 8 x 9 cm, segmental mandibulectomy, right selective neck dissection of levels 1 through 4 and left neck exploration with reconstruction with thigh free flap and had complex neck closure with split thickness skin graft. * Adjuvant radiation planned to start December 20, 2021. [facility] Medical History Acid reflux Anemia Cancer related pain Difficulty swallowing Epigastric pain Hypertension malignant squamous cell carcinoma lt neck Mass of left side of neck peg tube removed Surgical History history of biopsy neck History of removal of Port-a-Cath S/P percutaneous endoscopic gastrostomy (PEG) tube placement ( 01/26/19) s/p port placement ( 01/26/19) Family History Mother CVA (cerebral vascular accident) Social History (Updated 12/18/21 @ 08:52 by Hortencia Weaver) Smoking Status: Former smoker quit date: 09/16/21 Tobacco: How many years used: 30 how long ago did patient quit smokin-4 months ago second hand exposure: Yes alcohol intake: current alcohol intake frequency: a few times a week substance use type: does not use seatbelt use: sometimes do you feel safe at home: Yes ROS Constitutional Constitutional: Reports systems reviewed and no addt'l complaints, except as documented, fatigue and other Details: Lost weight perioperatively, is regaining now ; Denies anorexia, fever(s) or weight loss Eyes Eyes: Reports systems reviewed and no addt'l complaints, except as documented; Denies change in vision ENT HEENT: Reports systems reviewed and no addt'l complaints, except as documented, dry mouth, hearing loss and hoarseness; Denies mouth lesions Cardiovascular Cardiovascular: Reports systems reviewed and no addt'l complaints, except as documented, edema and other Details: Painless, left leg, new onset following surgery of October 2021 ; Denies chest pain with activity Respiratory/Chest Respiratory/Chest: Reports systems reviewed and no addt'l complaints, except as documented; Denies cough or dyspnea Gastrointestinal Gastrointestinal: Reports systems reviewed and no addt'l complaints, except as documented; Denies change in bowel habits, hematochezia or melena Genitourinary Genitourinary: Reports systems reviewed and no addt'l complaints, except as documented; Denies hematuria Musculoskeletal Musculoskeletal: Reports systems reviewed and no addt'l complaints, except as documented; Denies arthralgias Integumentary Integumentary: Reports systems reviewed and no addt'l complaints, except as documented; Denies rash Neurologic Neurologic: Reports systems reviewed and no addt'l complaints, except as documented; Denies headache(s) Psychiatric Psychiatric: Reports systems reviewed and no addt'l complaints, except as documented Endocrine Endocrinology: Reports systems reviewed and no addt'l complaints, except as documented Hematologic/Lymphatic Hematologic/Lymphatic: Reports systems reviewed and no addt'l complaints, except as documented; Denies easy bleeding, easy bruising or lymphadenopathy Allergic/Immunologic Allergic/Immunologic: Reports systems reviewed and no addt'l complaints, except as documented Intake Vital Signs 12/07/21 14:14 12/18/21 08:53 Height 5 ft 4 in 5 ft 5 in Weight: 55.111 kg BMI 20.2 BP 135/72 H Blood Pressure Location Rt brachial Position Sitting Respiration 18 Pulse 76 Pulse Source Monitor Temp 98.4 F Temperature Source Temporal Artery Pulse Oximetry (%) 97 Oxygen Delivery Method room air Intake Is patient in pain?: Yes (H/N surgery site) Pain scale (1-10): 2 Allergies No Known Allergies Allergy (Verified 12/18/21 08:48) Medications Levothyroxine 75 mg PO DAILY 08/25/20 [History Confirmed 12/18/21] pentoxifylline 400 mg tablet,extended release 400 mg PO TID #90 tab 05/17/21 [Rx Confirmed 12/07/21] vitamin E mixed 1,000 unit capsule 1,000 unit PO DAILY #30 cap 05/17/21 [Rx Confirmed 12/18/21] albuterol sulfate 1.25 mg INHALATION Q4H PRN #90 ml 12/10/21 [Rx Confirmed 12/18/21] hydrocodone-acetaminophen 1 tab PO Q6H PRN PRN 3 Days #10 tablet 12/15/21 [Rx Confirmed 12/18/21] sulfamethoxazole-trimethoprim 20 ml FEEDING TUBE BID 3 Days #120 ml 12/15/21 [Rx] Central Venous Access Central Venous Access: No CBC, CMP iron profile, TSH December 18, 2021 reviewed in EMR Diagnostic Data PET, CT Tumor Imaging 10/11/21 10:00 IMPRESSION: 1. ABNORMAL EXAMINATION INDICATIVE OF MALIGNANT VIABLE NEOPLASM. 2. Increased glucose concentration defined in the midline mandible extending anteriorly into the periosseous soft tissues fulfills quantitative criteria for viable neoplasia. 3. No other quantitatively significant hypermetabolic abnormalities are noted. Electronic Signature Narendra Weathers D.O. Accurate Quantification of SUVs for this report are calculated using the exclusive [employer] Technology. (U.S. Patent No. 10, 674, 983). Standardization and correction of the FDG SUV metric via ACCUQUAN technology allow for vendor non-specific objective quantitative examination comparison and optimization of the sensitivity and specificity of the FDG PET-CT examination. Electronically Signed: Narendra Weathers DO at 22:31 EST Tel , Service support , Exam Physical Exam Narrative ECOG 1 Hard of hearing Const alert, oriented x3 and no apparent distress General Appearance: cooperative and comfortable HEENT normocephalic HEENT Narrative: Reconstruction of the lower face, soft tissue edema Mouth: No thrush Eyes General Eye: normal appearance of both eyes Conjunctiva: conjunctiva normal Sclera: sclera normal Neck no lymphadenopathy and no JVD Neck Narrative: Postoperative changes including flap. There is residual tissue edema General: tracheostomy present Lymph Lymphatic: no lymphadenopathy noted Chest Chest: symmetrical chest wall rise Resp Auscultation: diminished lung sounds bilateral and diffuse Cardio regular rate and regular rhythm Jugular Venous Distention: Negative for JVD GI soft to palpation, non-tender and non-distended; Negative for hepatosplenomegaly GI Narrative: PEG tube no CVA tenderness Back/Spine no thoracic nor lumbar tenderness Extremity General Extremity: edema left lower extremity; Negative for clubbing or cyanosis Skin no rashes or lesions noted Neuro oriented x3, CN's II-XII intact bilaterally and moves all extremities Neuro Narrative: Bilateral symmetric wasting of first interosseous muscles. 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 Patient is status post tonsillectomies and uveal excision yet no primary identified. Received concomitant chemoradiation January through March 2019 tolerated with expected but no excessive toxicities. He is in complete remission now and is on surveillance with no evidence to suggest cancer recurrence. Residual posttreatment skin hyperpigmentation and induration in the neck area and dry mouth. Indeterminate too small to further characterize lung nodules on initial staging chest CT of November 2018 remains stable for 2 years on imaging through February 2021. 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 Restaging did not suggest systemic disease. October 2021 he underwent radical surgery. Comorbid conditions: Smoking and excessive alcohol until the time of diagnosis of malignancy. He continued to smoke after the first line of therapy Plan: 1-he is tentatively planned to start postoperative adjuvant radiation therapy December 21, 2021 due to high risk for local recurrence of the disease. Offered concomitant radiation sensitization with single agent carboplatin on a weekly schedule. Patient is to think about and discuss with family and convey consent within the upcoming 24 hours prior to starting his radiation. If consenting will obtain insurance authorization and start same week. 2-risks and benefits of single agent carboplatin concomitant with radiation discussed. Was not interested in a formal chemotherapy teaching session at this time. Impression and plan reviewed with patient . Quincy Simpson MD Environmental Services Floor Tech, [facility] Divisions of Medical Oncology Hematology Department of Internal Medicine [place] [phone] This note was generated using a voice recognition system software. Although it was reviewed by the author prior to finalization, it may still contain incorrect words, spelling, and punctuation that were not noted when reviewing prior to saving. If a clinically significant typo or inaccurately typed phrase is noted, please notify the author. 12/18/21 1032 <Electronically signed by Quincy Simpson MD> Date Quincy Simpson MD Cosigner Signature: Date (if applicable) CC: BOOTH CLEANERLulu Gonzalez; DO Kya Cantor Work Phone: Start: 12-15-2021 End: 12-15-2021 Emergency Department Summary Comments: See Note; NOTES: [facility] Medical Records Department [address] [place] [address] Emergency Department Summary 12/15/21 MR#: [id number] Acct: [id number] Name: MY JAMA Rep #: [id number] : 1960 61 From: Rayray Perez DO PCP: YARI Pardo Status:DEP ER Location: ED HPI History of Present Illness Chief Complaint: Wound Informant: patient Onset/Context/Timing Onset: Days Context: Gradual Onset Timing: Continuous Quality: Erythematous Location: Chin and anterior neck Narrative Narrative: Patient presents for possible infection of his chin wound. 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 Patient recently completed a course of Bactrim. Patient noted some swelling to his chin today. Patient saw his primary care physician for this. Patient was then referred to the emergency department for further evaluation. Patient denies any difficulty breathing or difficulty swallowing. Patient is unsure if his redness has gotten any worse. Patient denies any fevers or chills. [facility] Medical History Acid reflux Anemia Cancer related pain Difficulty swallowing Epigastric pain Hypertension malignant squamous cell carcinoma lt neck Mass of left side of neck peg tube removed Home Medications Levothyroxine 75 mg PO DAILY 08/25/20 [History Last Taken Unknown] pentoxifylline 400 mg tablet,extended release 400 mg PO TID #90 tab 05/17/21 [Rx Last Taken Unknown] vitamin E mixed 1,000 unit capsule 1,000 unit PO DAILY #30 cap 05/17/21 [Rx Last Taken Unknown] albuterol sulfate 1.25 mg INHALATION Q4H PRN #90 ml 12/10/21 [Rx Last Taken Unknown] hydrocodone-acetaminophen 1 tab PO Q6H PRN PRN 3 Days #10 tablet 12/15/21 [Rx Last Taken Unknown] sulfamethoxazole-trimethoprim 20 ml FEEDING TUBE BID 3 Days #120 ml 12/15/21 [Rx Last Taken Unknown] Allergy/AdvReac Type Severity Reaction Status Date / Time No Known Allergies Allergy Verified 12/15/21 10:53 Family History Mother CVA (cerebral vascular accident) Surgical History history of biopsy neck History of removal of Port-a-Cath S/P percutaneous endoscopic gastrostomy (PEG) tube placement ( 01/26/19) s/p port placement ( 01/26/19) Social History Smoking Status: Current every day smoker tobacco type: cigarettes Tobacco: How many years used: 30 second hand exposure: Yes alcohol intake: current alcohol intake frequency: a few times a week substance use type: does not use seatbelt use: sometimes do you feel safe at home: Yes ROS ROS ED Constitutional Constitutional ED: Denies chills or fever(s) Eyes Eyes: Denies blurry vision or change in vision ENT ENT ED: Denies rhinorrhea or sore throat Cardiovascular Cardiovascular: Denies chest pain or palpitations Respiratory/Chest Respiratory/Chest: Reports cough; Denies dyspnea Gastrointestinal Gastrointestinal: Denies nausea or vomiting Genitourinary Genitourinary ED: Denies dysuria or hematuria Musculoskeletal Musculoskeletal: Denies back pain or neck pain Integumentary Denies abscess or rash Neurologic Neurologic: Denies headache(s) or weakness Allergic/Immunologic Allergic/Immunologic ED: Denies mouth swelling or urticaria EXAM Physical Exam Const Vital Signs: 12/15/21 10:53 Temperature 96.9 F L Temperature Source Temporal Pulse Rate 73 Respiratory Rate 17 Blood Pressure 131/64 H Blood Pressure Mean 86 Pulse Ox 99 Oxygen Delivery Method Room Air Positive well nourished and well developed General Appearance ED: well developed and NAD HEENT Reports moist mucous membranes Eyes PERRL and EOMs intact bilaterally Neck supple and no JVD Resp normal respiratory effort and clear to auscultation bilaterally Cardio regular rate and regular rhythm GI non-tender Palpation: soft Neuro oriented x3, CN's II-XII intact bilaterally and no sensory deficits noted Sensorium / Orientation: alert Motor Exam: strength 5/5 throughout Psych mental status grossly normal Skin Skin Narrative: There is some edema and erythema over the chin, mandible, and anterior neck. There is no evidence of any abscess. Oral mucosa is pink and moist. Tracheostomy is in place. There is no discharge or drainage. MDM MDM MDM Narrative Medical decision making narrative: The patient's surgeon's office called in and requested that we take pictures of his neck and send them to them for evaluation. These were taken on my phone and emailed to the surgeons office. They did not feel the redness is much worse than it has been. They did recommend obtaining a CBC and if the white blood cell count was elevated that he may need IV antibiotics. This was ordered and white blood cell count was normal at 7.4. I discussed the results with Koki from Dr. Brooks's office. They felt that it would be beneficial to cover with antibiotics over the weekend until they can follow-up with him on Saturday. Patient was given an prescription for Bactrim for 3 days. Patient was also given a prescription for a short course of [place]. Patient was instructed to follow-up with Dr. Brooks in 3 days. Patient understood and was agreeable with the plan. All questions were answered. Lab Data Attestation: I reviewed the patient's lab results. Labs: Laboratory Results - last 24 hr 12/15/21 12:57 WBC 7.4 RBC 3.93 L Hgb 12.5 L Hct 35.7 L MCV 90.8 MCH 31.8 MCHC 35.0 RDW Std Deviation 45.6 H RDW Coeff of Jennifer 13.4 Plt Count 450 MPV 8.6 Immature Gran % (Auto) 0.500 Neut % (Auto) 75.7 H Lymph % (Auto) 11.1 L [place]oux % (Auto) 11.9 H Eos % (Auto) 0.4 Baso % (Auto) 0.4 Absolute Neuts (auto) 5.6 Absolute Lymphs (auto) 0.82 L Nucleated RBC % 0 Discharge Plan Triage Chief Complaint: Wound ED Provider: Rayray Perez Dx/Rx/DC Orders Clinical Impression: Postoperative cellulitis of surgical wound Instructions: ED Wound Infection after surgery Prescriptions: New sulfamethoxazole-trimethoprim 200-40 mg/5 mL suspension 20 ml feeding tube BID 3 Days Qty: 120 RF: 0 hydrocodone-acetaminophen [hydrocodone-acetaminophen] 1 TABLET tablet 1 tab PO Q6H PRN PRN (Reason: Pain) 3 Days Qty: 10 RF: 0 No Action Levothyroxine 75 mg PO DAILY RF: 0 albuterol sulfate 1.25 mg/3 mL solution for nebulization 1.25 mg inhalation Q4H PRN (Reason: bronchospasm) Qty: 90 RF: 0 pentoxifylline 400 mg tablet extended release 400 mg PO TID Qty: 90 RF: 5 vitamin E mixed 1,000 unit capsule 1,000 unit PO DAILY Qty: 30 RF: 5 Primary Care Provider: Kya Gonzalez NP Referrals: Rachel Brooks MD [NON-STAFF] - Kya Gonzalez NP, BO[employer] CLEANER-C [Primary Care Provider] - Disposition Disposition: Home, Self Care What to do if you have Problems For any increased pain, shortness of breath, bleeding, nausea or vomiting, chest pain, or any unexpected problems, contact your Primary Care Provider. Call [facility] ([phone]) or report to the closest Emergency Room. Call 911 if necessary. 12/15/212211 <Electronically signed by Rayray Perez DO> Cosigner Signature (if applicable): CC: BOOTH CLEANER-C Kya Gonzalez Signed Kya Gonzalez Work Phone: Start: 12-10-2021 End: 12-10-2021 Emergency Department Summary Comments: See Note; NOTES: [facility] Medical Records Department [address] [place] [address] Emergency Department Summary 12/10/21 MR#: [id number] Acct: [id number] Name: MY JAMA Rep #: [id number] : 1960 61 From: Aiden Pierre DO PCP: Kya Gonzalez NP-C Status:REG ER Location: ED HPI History of Present Illness Chief Complaint: Shortness of Breath Narrative Narrative: as well as history of tracheostomy presenting [id number] male with history of head and neck cancer tracheostomy care. He states that his tracheostomy was removed last week and had to be replaced He states that he by the end of the week. He requests suction because he states he cannot clear it. He does not have a suction device at home. He also states that they did not give him any tracheostomy care tools. Patient states that he was given albuterol inhalers but he ran out of these. He is unable to contact anybody on Saturday. PFSH PFS Medical History Acid reflux Anemia Cancer related pain Difficulty swallowing Epigastric pain Hypertension malignant squamous cell carcinoma lt neck Mass of left side of neck peg tube removed Home Medications Levothyroxine 75 mg PO DAILY 08/25/20 [History Last Taken Unknown] pentoxifylline 400 mg tablet,extended release 400 mg PO TID #90 tab 05/17/21 [Rx Last Taken Unknown] vitamin E mixed 1,000 unit capsule 1,000 unit PO DAILY #30 cap 05/17/21 [Rx Last Taken Unknown] albuterol sulfate 1.25 mg INHALATION Q4H PRN #90 ml 12/10/21 [Rx Last Taken Unknown] Allergy/AdvReac Type Severity Reaction Status Date / Time No Known Allergies Allergy Verified 12/10/21 16:40 Family History Mother CVA (cerebral vascular accident) Surgical History history of biopsy neck History of removal of Port-a-Cath S/P percutaneous endoscopic gastrostomy (PEG) tube placement ( 01/26/19) s/p port placement ( 01/26/19) Social History Smoking Status: Current every day smoker tobacco type: cigarettes Tobacco: How many years used: 30 second hand exposure: Yes alcohol intake: current alcohol intake frequency: a few times a week substance use type: does not use seatbelt use: sometimes do you feel safe at home: Yes ROS ROS ED Constitutional Constitutional ED: Denies chills or fever(s) Eyes Eyes: Denies blurry vision ENT ENT ED: Denies rhinorrhea or sore throat Cardiovascular Cardiovascular: Denies chest pain or palpitations Respiratory/Chest Respiratory/Chest: Reports dyspnea; Denies cough or dyspnea on exertion Gastrointestinal Gastrointestinal: Denies abdominal pain or nausea Genitourinary Genitourinary ED: Denies dysuria or hematuria Musculoskeletal Musculoskeletal: Denies arthralgias or myalgias Integumentary Denies rash Neurologic Neurologic: Denies headache(s) EXAM Physical Exam Const Vital Signs: 12/10/21 16:40 12/10/21 17:19 Temperature 97.8 F Temperature Source Temporal Pulse Rate 60 Respiratory Rate 18 Respiratory Effort Normal Respiratory Depth Normal Respiratory Pattern Normal Blood Pressure 144/70 H Blood Pressure Mean 94 Pulse Ox 99 Oxygen Delivery Method Room Air Room Air Positive well nourished General Appearance ED: NAD; Negative for pallor HEENT Reports moist mucous membranes atraumatic Eyes PERRL and EOMs intact bilaterally Neck Neck Narrative: Tracheostomy in place. No surrounding induration or erythema. Tracheostomy patent. No stridor. Resp normal respiratory effort and clear to auscultation bilaterally Cardio regular rate and regular rhythm Neuro oriented x3 and CN's II-XII intact bilaterally Sensorium / Orientation: alert Psych mental status grossly normal Skin General Skin Exam: Negative for jaundice or pallor MDM MDM MDM Narrative Medical decision making narrative: Patient presenting with request to have his tracheostomy suctioned. This was performed. Respiratory does state that they did not get a ton out of his tracheostomy site but he feels improvement. I recommended to him that he call the care team which provided him with the tracheostomy so he can get some home care kits for this. Requested refills of his home albuterol nebulized. This was provided for him. I do not believe he needs any further work-up or imaging. He was given return precautions. Impression: 1. Tracheostomy care Discharge Plan Triage Chief Complaint: Shortness of Breath ED Provider: Aiden Pierre Dx/Rx/DC Orders Instructions: ED Tracheostomy Care Prescriptions: New albuterol sulfate 1.25 mg/3 mL solution for nebulization 1.25 mg inhalation Q4H PRN (Reason: bronchospasm) Qty: 90 RF: 0 No Action Levothyroxine 75 mg PO DAILY RF: 0 pentoxifylline 400 mg tablet extended release 400 mg PO TID Qty: 90 RF: 5 vitamin E mixed 1,000 unit capsule 1,000 unit PO DAILY Qty: 30 RF: 5 Primary Care Provider: Kya Gonzalez NP Referrals: Kya Gonzalez BOOTH CLEANER, BO[employer]ER-C [Primary Care Provider] - Disposition Disposition: Home, Self Care What to do if you have Problems For any increased pain, shortness of breath, bleeding, nausea or vomiting, chest pain, or any unexpected problems, contact your Primary Care Provider. Call [facility] ([phone]) or report to the closest Emergency Room. Call 911 if necessary. 12/10/211821 <Electronically signed by Aiden Pierre DO> Cosigner Signature (if applicable): CC: BOOTH CLEANER-C Kya Gonzalez Signed Kya Gonzalez Work Phone: Start: 12-07-2021 End: 12-07-2021 Radiation Oncology Visit Comments: See Note; NOTES: [facility] [address] [place] [id number] OFFICE VISIT Date of Service: 12/07/21 1424 MR#: [id number] Acct: [id number] Name: MY JAMA Rep #: [id number] : 1960 From: Santiago Sellers DO Age/Sex: 61/M Location: [facility] Status: Signed Intake Vital Signs 12/07/21 14:25 12/07/21 14:56 Weight: 120 lb 4 oz BP 132/76 H Blood Pressure Location Rt brachial Position Sitting Respiration 14 Pulse 75 Pulse Source Monitor Temp 98.2 F Temperature Source Tympanic Pulse Oximetry (%) 100 Oxygen Delivery Method room air Intake Visit Reasons: FOLLOWUP HEAD/NECK Chief Complaint: squamous cell cancer of the head and neck follow-up Is patient in pain?: Yes (COMES AND GOES IN JAW) Allergies No Known Allergies Allergy (Verified 12/07/21 14:26) Medications Levothyroxine 75 mg PO DAILY 08/25/20 [History Confirmed 12/07/21] pentoxifylline 400 mg tablet,extended release 400 mg PO TID #90 tab 05/17/21 [Rx Confirmed 12/07/21] vitamin E mixed 1,000 unit capsule 1,000 unit PO DAILY #30 cap 05/17/21 [Rx Confirmed 12/07/21] PFSH PFS Medical History Acid reflux Anemia Cancer related pain Difficulty swallowing Epigastric pain Hypertension malignant squamous cell carcinoma lt neck Mass of left side of neck peg tube removed Home Medications Levothyroxine 75 mg PO DAILY 08/25/20 [History Last Taken Unknown] pentoxifylline 400 mg tablet,extended release 400 mg PO TID #90 tab 05/17/21 [Rx Last Taken Unknown] vitamin E mixed 1,000 unit capsule 1,000 unit PO DAILY #30 cap 05/17/21 [Rx Last Taken Unknown] Allergy/AdvReac Type Severity Reaction Status Date / Time No Known Allergies Allergy Verified 12/07/21 14:26 Family History Mother CVA (cerebral vascular accident) Surgical History history of biopsy neck History of removal of Port-a-Cath S/P percutaneous endoscopic gastrostomy (PEG) tube placement ( 01/26/19) s/p port placement ( 01/26/19) Social History Smoking Status: Current every day smoker tobacco type: cigarettes Tobacco: How many years used: 30 second hand exposure: Yes alcohol intake: current alcohol intake frequency: a few times a week substance use type: does not use seatbelt use: sometimes do you feel safe at home: Yes Diagnosis: My Jama is a 61-year-old male diagnosed with 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 From 02/10/2019 ??? 03/25/2019 he received definitive chemoradiation therapy consisting of 6996 cGy in 33 fractions with concurrent high dose cisplatin. 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 History of Present Illness: 04/28/2018: Patient underwent EGD due to odynophagia. This demonstrated significant esophagitis in the distal esophagus measuring 1-2 cm in length. Biopsy was obtained. Duodenum and stomach appeared normal. Pathology demonstrated focal changes suggestive of reflux. 12/15/2018: Patient presented to with a left-sided lump involving his neck which was firm and nontender. This lesion was present for about 3-4 weeks. 12/17/2018: CT neck and chest was completed. There are a few small scattered pulmonary nodules present with the largest in the right upper lobe anterior segment measuring 5 mm with solid features and smooth margins. Recommended to have follow-up low-dose chest CT in 1 year for pulmonary nodule surveillance. There is a rim-enhancing centrally cystic mass distal to the angle of the mandible lateral to the hyoid cartilage along the anterior margin of the sternocleidomastoid muscle with wall thickness up to 4.9 mm. Process measures approximately 1.8 cm craniocaudal and 2 1.8 cm transverse and 2.9 cm AP. Posteriorly and deep to the SCM there is a 1.2 x 1.6 cm mildly enlarged lymph node and a few additional shotty lymph nodes present on the left. No evidence of cervical adenopathy on the right. Pharyngeal and laryngeal soft tissues appear normal. 12/22/2018: Ultrasound-guided FNA of the left neck mass was completed and pathology demonstrated malignant cells consistent with keratinizing squamous cell carcinoma with extensive necrosis, p16 negative. 12/31/2018: Evaluation by medical oncology. Recommended ENT evaluation with panendoscopy and PET/CT for staging. 01/02/2019: Patient was evaluated by ENT. On exam he was noted to have a large fixed left cervical radha conglomerate. Also noted was a 1 cm cystic lesion of the uvula. Otherwise oral and oropharyngeal mucosa were normal. Flexible laryngoscopy was performed which demonstrated no evidence of lesion. Small cystic lesion of the uvula was felt to be benign. 01/05/2019: PET scan was performed which demonstrated 2 separate nodular foci of increased glucose metabolism manifest in the left lateral neck level 3 generating a calculated maximum SUV of 8.6 with the larger soft tissue density demonstrating central photopenia in the largest corresponding lesion measured on CT is 2.8 cm x 3.5 cm. There is asymmetric increased FDG distribution defined in the left pharyngeal mucosal space generating a calculated maximum SUV of 3.4 with a maximum axial diameter of corresponding metabolic abnormality measuring 1.9 cm. There is no evidence of metastatic disease identified. Recommendation is to closely clinically evaluate the left pharyngeal area lesion for primary disease. 01/08/2019: Patient underwent dental extraction of numbers 7 through 13 and #14. 01/13/2019: Patient underwent dental extraction of #6 and 2 through 5, he also completed amalgam fillings of #21 through 22 and 28. Following this procedure he was confirmed to be cleared for radiation therapy. 01/26/2019: Patient underwent placement of PEG tube and port. 01/30/2019: Patient completed left tonsil excision and uvula excision. Pathology displayed no evidence of malignancy or high-grade squamous dysplasia. There was noted to be submucosal dilated minor salivary gland duct with oncocytic metaplasia in the uvula. From 02/10/2019 ??? 03/25/2019: Received 6996 cGy delivered to gross disease involving the left neck, 5940 cGy to the high risk mucosal sites (entire oropharynx) and high risk lymph node sites (left levels 2-5), and 5412 cGy delivered to the low risk mucosal sites (nasopharynx, larynx, hypopharynx) bilateral high level 2, bilateral supraclavicular fossa, and right neck levels 2-5). Treatment was completed using dose painting IMRT and a single VMAT plan and he received concurrent chemotherapy with high dose cisplatin (cycle 1: 02/10, cycle 2: 03/02, cycle 3: 03/23). 05/13/2019: CT chest was performed. In comparison to the study in November 2018 there is persistent multifocal nodular pleural thickening or tiny pleural-based nodules in the lower lobes which are unchanged in size or number since the previous study. This measures 4 mm. 06/26/2019: Patient underwent swallow study and then had discussion with speech therapy. Recommendations are for a mechanical soft textured and thin liquid diet. Exercises and other strategies were recommended and speech therapy will continue to follow-up. 06/29/2019: PET scan was performed which demonstrated no definitive quantitative scintigraphic evidence of recurrent/metastatic viable neoplasm, overall when compared to the prior PET scan dated 01/05/2019 there is currently an absence of defined viable neoplastic disease with interval resolution of the primary defined hypermetabolic foci. 07/16/2019: Follow up with medical oncology. Plan for surveillance CT chest in 3 months to reassess nonspecific lung nodules. 03/30/2020: swallow study was performed. Recommendations are for regular/soft textured and thin liquid diet. 12/31/2019: Follow up with ENT. NPL showed no evidence of disease, epiglottic and arytenoid edema present. 04/06/2020: CT chest was performed and demonstrated bilateral pulmonary nodules which are stable since the prior exam. No other evidence of disease is identified. 09/02/2020: CT chest with contrast was performed. This demonstrated severely emphysematous lungs bilaterally with multiple scattered stable small nodules. No evidence of metastatic disease identified. 01/25/2021: Patient had removal of the remaining teeth lower teeth 21???28. Patient was treated with antibiotics for slowly healing fibrotic tissue. Patient is also being treated with Trental/vitamin E. 02/27/2021: CT chest was completed. This demonstrated stable findings including small scattered noncalcified nodules seen in both lungs. 08/23/2021: CT soft tissue neck with contrast was performed. This demonstrated evidence of bony destruction involving the mid anterior aspect of the mandible. The transverse dimension of the destruction measures 2.1 cm. There appears to be a 2.6 x 3.7 cm soft tissue mass overlying the anterior aspect of the midportion of the mandible, should rule out neoplastic process. No other abnormalities are appreciated. 10/11/2021: PET scan was performed. This demonstrated heterogeneous increased FDG distribution defined in the anterior midline mandible extending into the periosseous soft tissue anteriorly with a calculated max of SUV of 12 maximum diameter of 5.1 x 5.5 cm. No other quantitatively significant hypermetabolic abnormalities are noted. 11/07/2021: Patient underwent direct laryngoscopy, flexible bronchoscopy, flexible esophagoscopy, PEG tube placement, tracheostomy, composite resection of oral cavity, excision of skin and soft tissue measuring 8 x 9 cm, segmental mandibulectomy, right selective neck dissection of levels 1 through 4 and left neck exploration for vessels. Reconstruction was thigh free flap and had complex neck closure with split thickness skin graft. 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 There was skin invasion present. LVSI not identified. PNI present and focal. Right posterior floor of mouth mucosal margin is involved by invasive carcinoma, left posterior floor of mouth margin is involved by high-grade dysplasia/in situ disease. Right skin soft tissue margin is less than 1 mm, right oral soft tissue margin is 1.5 mm, posterior soft tissue margin is 2.5-3 mm. 3 lymph nodes were involved 2 involving the right level 1 and 1 involving the right level 4, largest deposit was 3 mm and no DEREK was noted. 11/09/2021. Postoperative course was complicated by arterial clotting and taken back to the OR for arterial release, flap checks were stable following the takeback. 12/05/2021: trach re-inserted due to difficulty breathing when laying flat. Radiation Treatment History: 1) From 02/10/2019 - 03/25/2019: Received 6996 cGy delivered to gross disease involving the left neck, 5940 cGy to the high risk mucosal sites (entire oropharynx) and high risk lymph node sites (left levels 2-5), and 5412 cGy delivered to the low risk mucosal sites (nasopharynx, larynx, hypopharynx) bilateral high level 2, bilateral supraclavicular fossa, and right neck levels 2-5). Treatment was completed using dose painting IMRT and a single VMAT plan and he received concurrent chemotherapy with high dose cisplatin (cycle 1: 02/10, cycle 2: 03/02, cycle 3: 03/23). Interval History: Patient presents for follow-up prior to proceeding with CT simulation. 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 He underwent composite resection and reconstruction on 11/07/2021. He reports healing fairly well since that time. He did have to have his trach reinserted on 12/05/2021, when the trach was removed he had difficulty laying flat. He does report persistent swelling in the lips and face which has been mostly stable with some fluctuation since surgery. He has very little pain and can swallow liquids and soft food without much difficulty. He does take a good amount of his nutrition through his PEG tube. He reports mild dry mouth but denies having any taste changes. He denies focal weakness/numbness, hoarseness, dysphagia, odynophagia otalgia. All of his remaining teeth have been removed as of September 2021. Review of Systems: A 12-point review of systems was completed and was negative except for what is noted in the HPI/Interval History and by the nurse. Physical Exam: Weight: 120 lbs 4 oz (weight at end of [employer] 03/25/2019: 126.6 lbs) ECO KARNOFSKY SCORE: 80% CONSTITUTIONAL: Well-developed, well-nourished, and in no apparent distress. HEENT: Mucous membranes moist. Enlarged swollen lips. Well healed flap based reconstruction of chin/mandible/FOM. No erythema or mucositis. No trismus. Edentulous. Pupils are equal, round, and reactive to light and accommodation. Extraocular movements are intact. Sclerae are anicteric. NECK: Supple,with no thyromegaly, and non-tender. Trachea midline. The previously noted left neck adenopathy remains flattened and resolved. No erythema, left neck hypopigmentation present. Neck range of motion is intact but does have left greater than right neck fibrosis. There are no palpable lymph nodes in the neck or supraclavicular region. No lymphedema. CARDIAC: Regular rate and rhythm. Normal S1, S2. No murmurs, rubs, or gallops. PULMONARY/CHEST: Lungs are clear to auscultation and percussion bilaterally. No wheezes, rhonchi, or crackles noted. No increased work of breathing. ABDOMINAL: Abdomen soft, non-tender, non-distended. No hepatomegaly. Normoactive bowel sounds in all four quadrants. No guarding, rebound. BACK: Straight and aligned. No CVA tenderness. Axial skeleton non-tender to percussion. EXTREMITIES: Full range of motion in all four extremities, with normal strength equally and symmetrically. No evidence of edema. No clubbing. NEUROLOGICAL EXAM: Alert and oriented x 3. Cranial nerves II through XII are grossly intact. No focal neurological deficit. Speech is fluent. There is no upper or lower extremity sensory deficit or motor deficit. Muscle strength is 5/5 in all muscle groups. Gait and posture are steady. PSYCHIATRIC: Appropriate mood and affect for the clinical situation. 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 From 02/10/2019 ??? 03/25/2019 he received definitive chemoradiation therapy consisting of 6996 cGy in 33 fractions with concurrent high dose cisplatin. 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 Plan: Patient presents for follow-up prior to proceeding with CT simulation. He reports healing well from surgery approximately 1 month ago. He does report persistent swelling which fluctuates but has not greatly changed since surgery. Weight is stable and he can swallow liquids and soft foods but is taking most nutrition through his PEG tube. Patient returns for follow-up to discuss reirradiation. He was treated for p16 negative squamous cell carcinoma of unknown primary in 2019 and appears to now have had primary disease recurrence/emergence with squamous cell carcinoma of the floor of mouth/alveolar ridge/mandible now status post resection. presurgical imaging including CT neck and PET scan demonstrated no evidence of adenopathy or metastatic disease. There are significant high risk pathologic features demonstrated on resection including 6.5 cm high-grade tumor, 38 mm depth of invasion, skin involvement, very close and nearly positive margin and floor of mouth, PNI, and right neck LN involvement of level 1B and 4. We reviewed data supporting the use of H N reirradiation in patients with completely resected disease but with numerous high risk features to improve DFS. Also reviewed using concurrent chemotherapy given the number of high risk features and he will discuss this with medical oncology. I reviewed the logistics of radiation therapy including CT simulation, treatment planning, and daily fractionated treatment delivery likely for 33 fractions. I discussed the realistic goals of radiation therapy which are to improve disease-free survival and improve local disease control. I reviewed the risks, benefits, and alternatives to adjuvant reirradiation and the patient was given opportunity to ask all questions. I discussed the potential acute and chronic toxicities associated with head and neck reirradiation and this would include but is not limited to skin reactions (redness or darkening or desquamation), irritation/sores in the mouth and throat causing pain while eating/swallowing, loss of facial/neck hair, hoarseness, dryness of mouth, loss of taste sensation and late side effects in the form of persistent dryness of the mouth, loss of taste sensation, fibrosis/thickening of the skin in the treated area, decrease in jaw/neck mobility, damage to neck blood vessels, damage to brachial plexus, radionecrosis, dental complications, difficulty healing after future surgery, hearing decrease, spinal cord damage, carotid blowout, . I reviewed that with re-irradiation chronic and potential permanent toxicities are more likely. Following our discussion the patient desired to proceed with adjuvant radiation therapy and informed consent was obtained. He will discuss the addition of chemotherapy with medical oncology in the near future. CT simulation completed today without difficulty, plan will be to start radiation by about 6 weeks post op. He will be referred to dietary and speech therapy for management during treatment. He was instructed to call with any further questions or concerns in the interim. Thank you for allowing me to participate in the management and care of your patient. If I may answer any questions in the interim, please do not hesitate to contact me at any time. 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 Quincy Simpson MD; Dr. Rachel Brooks MD; MD Kya Felix Work Phone: Start: 12-05-2021 End: 12-18-2021 Emergency Department Summary Comments: See Note; NOTES: [facility] Medical Records Department [address] [place] [address] Emergency Department Summary 12/05/21 MR#: [id number] Acct: [id number] Name: MY JAMA Rep #: [id number] : 1960 61 From: Avinash Rod DO PCP: YARI Pardo Status:REG ER Location: ED HPI Narrative Narrative: Patient is a 61-year-old male who has a history of jaw/throat cancer. He was recently at the [facility] for surgery of this jaw/throat cancer and had to have a tracheostomy placed. He was seen at their facility today and had the tracheostomy removed. He states when he starts to lie down to try and sleep he feels increased shortness of breath and secondary to this comes in for evaluation ROS ROS ED Constitutional Constitutional ED: Denies chills or fever(s) ENT ENT ED: Reports sore throat Cardiovascular Cardiovascular: Denies chest pain, palpitations or racing heartbeat Respiratory/Chest Respiratory/Chest: Reports cough and dyspnea Gastrointestinal Gastrointestinal: Denies abdominal pain, diarrhea, nausea or vomiting Genitourinary Genitourinary ED: Denies dysuria Musculoskeletal Musculoskeletal: Denies myalgias Integumentary Denies rash Neurologic Neurologic: Denies headache(s) Hematologic/Lymphatic Hematologic/Lymphatic: Denies easy bleeding or easy bruising EXAM Physical Exam Const Positive cachectic General Appearance ED: cachectic Nutritional Appearance: cachectic HEENT HEENT Narrative: Patient has swelling in the submental region of the jaw consistent with recent surgery. There is swelling into the submental region of the oral mucosa as well causing mild tongue elevation but no true airway edema or compromise. Patient does state that these changes have been chronic for at least 4 weeks following his diagnosis and recent surgery. Patient states he feels like the swelling has actually gone down in the last few days as well Eyes PERRL and EOMs intact bilaterally Neck no JVD Neck Narrative: Soft tissue changes to the submental region of the jaw as documented above. There is a tracheostomy stoma present in the midline lower neck without active bleeding or surrounding sof t tissue changes to suggest infection Resp normal respiratory effort Resp Narrative: Patient's breath sounds are slight diminished throughout with diffuse expiratory wheeze consistent with history of smoking but no signs of respiratory distress Cardio regular rate and regular rhythm Extremity normal to inspection Extremity Narrative: No asymmetric edema no pitting edema negative Homans' sign bilaterally Neuro oriented x3 and CN's II-XII intact bilaterally Sensorium / Orientation: alert Motor Exam: strength 5/5 throughout Psych Mood Affect: anxious Skin no rashes or lesions noted MDM MDM MDM Narrative Medical decision making narrative: Patient presented to the ER in no acute respiratory distress. His lung sounds had diminished volume and wheezes present but he does have a longstanding history of smoking which is consistent with this. He also has swelling to the lower jaw/submental region but patient states this has been chronic for least 4 weeks and he feels like the swelling has actually diminished in the last few days. The patient was placed at 45 degrees and then down to approximately 130 degrees. With this he reported feeling shortness of breath initially but he was able to calm down and breathe through this and his pulse ox remained 98 to 100% indicating no true orthopnea. We discussed that his sensation of shortness of breath is related to airway compression from his persistent swelling. However there is no true obstruction there is just mild compression as we have documented he does not desat while lying down. I discussed with patient chest x-ray and basic labs but he states he is just had all of these done with his recent stay at the [facility] and therefore does not want them obtained again at this time. Therefore he will be instructed to sleep sitting upright or at a maximum degree of 45 degrees to help prevent any type of compression syndrome but at this time as he does not have any true hypoxia or respiratory distress or signs of overt infection he is safe for discharge Discharge Plan Triage ED Provider: Avinash Rod Dx/Rx/DC Orders Clinical Impression: Dyspnea Primary Care Provider: Kya Gonzalez NP Referrals: Kya Gonzalez BOOTH CLEANER, [employer] CLE[employer]ER-C [Primary Care Provider] - Disposition Disposition: Home, Self Care What to do if you have Problems For any increased pain, shortness of breath, bleeding, nausea or vomiting, chest pain, or any unexpected problems, contact your Primary Care Provider. Call [facility] ([phone]) or report to the closest Emergency Room. Call 911 if necessary. 12/05/21 0516 <Electronically signed by Avinash Rod DO> Cosigner Signature (if applicable): CC: BOOTH CLEANER-C Kya Gonzalez Signed Kya Gonzalez Work Phone: Start: 10-11-2021 End: 10-13-2021 PET/CT Tumor Base -Thigh Subs Comments: See Note; NOTES: [facility] Imaging Services [address] [place] [id number] PET/CT Tumor Base -Thigh Subs MR#: [id number] Acct: [id number] Name: MY JAMA Rep #: [id number] : 1960 M 61 From: Narendra Seay PCP: YARI Pardo Status: REG RCR Study: PET/CT Tumor Base -Thigh Subs Date of Exam: Exam# [id number] Ordering Dr: Quincy Simpson MD EXAMINATION: FDG PET/CT INDICATIONS: A 61-year-old male with reported history of head and neck carcinoma presenting for restaging examination. COMPARISON EXAMINATION: CT of the neck report dated 08/23/21, FDG PET study report dated 06/29/19 INDEX LESION SIZE SUV INTERPRETATION Midline mandible corresponding periosseous soft tissues 5.1 x 5.5-cm (largest) (frame 261) 12.0 (max) Fulfills quantitative criteria for viable neoplasm TECHNIQUE: Following the intravenous administration of 12.5 mCi of F-18 deoxyglucose via the left antecubital fossa, multiplanar image acquisitions of the neck, chest, abdomen and pelvis to level of mid thigh, obtained at one hour post radiopharmaceutical administration contemporaneously interpreted with the current CT of the neck, chest, abdomen and pelvis to level of mid thigh, dated 10/11/[address] of the neck report dated 08/23/21, FDG PET study report dated 06/29/19 reveal: SERUM GLUCOSE LEVEL: 90 mg/dl. HEIGHT: 66 inches. WEIGHT: 130 lbs. FINDINGS: 1. Heterogeneous increased FDG distribution is defined in the anterior midline mandible extending into the periosseous soft tissue anteriorly. The calculated maximal standard uptake value is 12.0. The maximal axial diameter of the corresponding metabolic, morphologic abnormality on review of CT of the head and neck dated 10/11/21 is 5.1-cm (transverse) x 5.5-cm (AP) with associated destruction of the anterior midline mandible. 2. Normal physiologic distribution of the radiopharmaceutical is apparent in the hepatic and splenic parenchyma, both renal units, bladder and visualized intestinal tract. The visualized portion of the cerebral cortical-subcortical structures demonstrate symmetric and preserved glucose metabolism. Prominent uptake is observed in the descending thoracic aorta commensurate with activated leukocytes associated with atherosclerotic plaque formation. Pertinent CT findings are as follows: CHEST: Emphysematous changes are defined in the bilateral upper lung zones. There are no parenchymal densities-nodules visualized in the right and left hemithorax with discernible increased tracer uptake. Bilateral subcentimeter axillary soft tissue densities with fatty hilus are ametabolic. Mediastinal soft tissue reveals no evidence of increased tracer uptake. ABDOMEN AND PELVIS: There is atherosclerotic calcification defined in the abdominal aorta without evidence of dilatation-aneurysm formation. Abdominal-pelvic arterial calcification is demonstrated. Right and left inguinal soft tissue densities with fatty hilus are non-glucose avid. Calcified phlebolith formation is encountered in the left lower hemipelvis. SKELETAL: Degenerative changes are noted in the cervical, thoracic and lumbar spine without evidence of increased radiopharmaceutical concentration. There is no evidence of sclerotic, mixed sclerotic-lytic and/or lytic changes noted on review of the skeletal structures manifesting an increase in glucose metabolism. PET/PET/CT Tumor Base -Thigh Subs IMPRESSION: 1. ABNORMAL EXAMINATION INDICATIVE OF MALIGNANT VIABLE NEOPLASM. 2. Increased glucose concentration defined in the midline mandible extending anteriorly into the periosseous soft tissues fulfills quantitative criteria for viable neoplasia. 3. No other quantitatively significant hypermetabolic abnormalities are noted. Electronic Signature Narendra Weathers D.O. Accurate Quantification of SUVs for this report are calculated using the exclusive [employer] Technology. (U.S. Patent No. 10, [phone] 983). Standardization and correction of the FDG SUV metric via [employer] technology allow for vendor non-specific objective quantitative examination comparison and optimization of the sensitivity and specificity of the FDG PET-CT examination. Electronically Signed: Narendra Weathers DO at 22:31 EST Tel , Service support , CC: BOOTH CLEANER-Damaris Gonzalez; Dr. Quincy Simpson MD Wood Router Hand: Signed Kya Gonzalez FISH CLEANER Work Phone: Start: 10-11-2021 PET/CT Tumor Base -Thigh Subs BOOTH CLEANER-C Kya Gonzalez BOOTH CLEANER Work Phone: Start: 08-23-2021 CT of soft tissues of neck with contrast BOOTH CLEANER-C Kya Gonzalez BOOTH CLEANER Work Phone: Start: 08-23-2021 End: 08-24-2021 Chest PA and Lateral Comments: See Note; NOTES: [facility] Imaging Services [address] [place] [id number] Chest PA and Lateral MR#: [id number] Acct: [id number] Name: MY JAMA Rep #: [id number] : 1960 M 61 From: Bib ghosh MD PCP: YARI Pardo Status: REG RCR Study: Chest PA and Lateral Date of Exam: 08/23/21 Exam# [id number] Ordering Dr: Joya Galvez NP N P-C STUDY: X-RAY CHEST REASON FOR EXAM: Male, 61 years old. HYPERBARIC O2 TX TECHNIQUE: PA and lateral views of the chest. COMPARISON: Comparison is made with prior study dated 01/26/2019. FINDINGS: There is hyperinflation of the lungs consistent with chronic obstructive lung disease (COPD). There is no demonstrated pleural abnormality. Normal size heart. Normal mediastinum and michelle. There is prominence of the pulmonary hilar arteries without peripheral pulmonary vascular congestion, suggesting pulmonary hypertension. Normal visualized aortic arch and descending thoracic aorta. There are diffuse degenerative changes of the visualized thoracic spine. Levoscoliosis. Normal visualized ribs, clavicles, and shoulders. There is no demonstrated abnormality of the visualized soft tissue structures of the upper abdomen. RAD/Chest PA and Lateral IMPRESSION: Hyperinflation. Electronically Signed: Bib Reeves MD at 15:33 EST , Service support , CC: YARI Galvez; YARI Gonzalez Wood Router Hand: Signed Kya Gonzalez FISH CLEANER Work Phone: Start: 08-23-2021 Plain chest X-ray BOOTH CLEANERLulu Gonzalez BOOTH CLEANER Work Phone: Start: 08-23-2021 End: 08-24-2021 Soft Tissue Neck WITH Contrast Comments: See Note; NOTES: [facility] Imaging Services [address] [place] [address] Soft Tissue Neck WITH Contrast MR#: [id number] Acct: [id number] Name: MY JAMA Rep #: [id number] : 1960 M 61 From: Bib ghosh MD PCP: YARI Pardo Status: REG CLI Study: Soft Tissue Neck WITH Contrast Date of Exam: 10/24/20 Exam# [id number] Ordering Dr: Santiago Sellers DO STUDY: CT SOFT TISSUE NECK WITH CONTRAST REASON FOR EXAM: Male, 61 years old. 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 High resolution transaxial imaging was performed following intravenous administration of IV 100mL Isovue-370. Sagittal and coronal images were reconstructed. Individualized dose optimization techniques were used for this CT. COMPARISON: Comparison is made with prior study 12/17/2018. FINDINGS: There is evidence of a bony destruction involving the mid anterior aspect of the. The transverse dimension of the destruction measures 2.1 cm. I suspect a 2.6 cm x 3.7 cm soft tissue mass overlying the anterior aspect of the midportion of the mandible. A neoplastic process should be. Normal bilateral parotid glands. Normal bilateral wireless sales associate spaces. Normal bilateral parapharyngeal spaces. Normal bilateral carotid spaces. Normal bilateral sublingual and submandibular glands and spaces. Normal visualized nasopharynx. Normal retropharyngeal space. Normal perivertebral space. Normal visualized bilateral faucial tonsils. The visualized tongue, tongue base and oropharynx are normal. The visualized cervical lymph nodes (levels I-) are within normal size limits, and maintain normal morphology. There is no demonstrated solid or cystic mass lesion. There is no abnormal contrast enhancement. Normal epiglottis, bilateral vallecula and hypopharynx. The pre-epiglottic and paraglottic adipose spaces are normal. Normal visualized bilateral piriform sinuses, aryepiglottic folds, vocal cords, and arytenoid-cricoid articulations. Normal subglottic trachea. Normal bilateral lobes of the thyroid gland. Normal visualized pulmonary apices. Normal visualized paranasal sinuses. There is multilevel degenerative changes of the cervical spine. CT/Soft Tissue Neck WITH Contrast IMPRESSION: Destruction of the mid anterior aspect of the mandible with overlying soft tissue mass. Electronically Signed: Bib Reeves MD at 15:43 EST , Service support , CC: YARI Gonzalez; Dr. 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: PLAN: HBO preauthorization with insurance company 2 YARELIS for 90 minutes without air breaks 1 treatment per day for 30 days (2) Delayed surgical wound healing: QUALIFIERS: Encounter type: subsequent encounter Qualified Code(s): T81.89XD - Other complications of procedures, not elsewhere classified, subsequent encounter (3) History of head and neck cancer: History of Present Illness Date of Service: 08/23/21 Chief Complaint: soft tissue necrosis of theL jaw History of Wound: Hx of Throat cancer back in 2018 received chemo and then radiation treatments and finished it up but by the end of 2018.Recently was seen by oral surgery and had 8 teeth extracted 2 teeth have still not healed. Referred here from dental hoping that the HBO might help heal the last 2 teeth. Progress of Wound: Today patient is here for consult for HBO. Patient was oriented and examined. Patient is agreeable to having HBO treatments done a chest x-ray will be obtained today he is scheduled already for a CT of the head neck with his oral surgeon. Lab works have been done in June of this last year so we will not need to repeat labs. We will obtain preauthorization from his insurance company for hyperbaric oxygen protocol at 2 sergio absolute for 90 minutes without air breaks 1 treatment per day for 30 days [facility] Medical History Acid reflux Anemia Cancer related pain Difficulty swallowing Epigastric pain Hypertension malignant squamous cell carcinoma lt neck Mass of left side of neck peg tube removed Home Medications Levothyroxine 75 mg PO DAILY 08/25/20 [History Last Taken Unknown] pentoxifylline 400 mg tablet,extended release 400 mg PO TID #90 tab 05/17/21 [Rx Last Taken Unknown] vitamin E mixed 1,000 unit capsule 1,000 unit PO DAILY #30 cap 05/17/21 [Rx Last Taken Unknown] Allergy/AdvReac Type Severity Reaction Status Date / Time No Known Allergies Allergy Verified 08/11/21 10:38 Family History Mother CVA (cerebral vascular accident) Surgical History history of biopsy neck History of removal of Port-a-Cath S/P percutaneous endoscopic gastrostomy (PEG) tube placement ( 01/26/19) s/p port placement ( 01/26/19) Social History Smoking Status: Current every day smoker tobacco type: cigarettes Tobacco: How many years used: 30 second hand exposure: Yes alcohol intake: current alcohol intake frequency: a few times a week substance use type: does not use seatbelt use: sometimes do you feel safe at home: Yes ROS Constitutional Constitutional: Reports systems reviewed and no addt'l complaints, except as documented; Denies anorexia, fatigue, fever(s) or weight loss Eyes Eyes: Reports systems reviewed and no addt'l complaints, except as documented; Denies change in vision ENT HEENT: Reports systems reviewed and no addt'l complaints, except as documented, dry mouth, hearing loss and hoarseness; Denies mouth lesions Cardiovascular Cardiovascular: Reports systems reviewed and no addt'l complaints, except as documented; Denies chest pain with activity or edema Respiratory/Chest Respiratory/Chest: Reports systems reviewed and no addt'l complaints, except as documented; Denies cough or dyspnea on exertion Gastrointestinal Gastrointestinal: Reports systems reviewed and no addt'l complaints, except as documented; Denies change in bowel habits, hematochezia or melena Genitourinary Genitourinary: Reports systems reviewed and no addt'l complaints, except as documented; Denies hematuria Musculoskeletal Musculoskeletal: Reports systems reviewed and no addt'l complaints, except as documented and other; Denies arthralgias Integumentary Integumentary: Reports systems reviewed and no addt'l complaints, except as documented; Denies rash Neurologic Neurologic: Reports systems reviewed and no addt'l complaints, except as documented; Denies headache(s) Psychiatric Psychiatric: Reports systems reviewed and no addt'l complaints, except as documented Endocrine Endocrinology: Reports systems reviewed and no addt'l complaints, except as documented Hematologic/Lymphatic Hematologic/Lymphatic: Reports systems reviewed and no addt'l complaints, except as documented; Denies easy bleeding, easy bruising or lymphadenopathy Allergic/Immunologic Allergic/Immunologic: Reports systems reviewed and no addt'l complaints, except as documented Physical Exam Physical Exam Const oriented x3 General Appearance: cooperative Exam Limitations: no limitations HEENT normocephalic Head and Scalp: normal to inspection Face and Sinus: normal facial exam Nose: external nose normal General Ear: hearing grossly impaired External Ear: external ears normal Mouth: oral and palatal mucosa normal Eyes PERRL General Eye: normal appearance of both eyes Neck full ROM General: normal visual inspection Resp normal respiratory effort Effort and Inspection: able to speak in complete sentences Auscultation: clear to auscultation bilaterally Cardio regular rate and regular rhythm Palpation: normal PMI Rate: regular rate Rhythm: regular rhythm GI Auscultation: normoactive bowel sounds Palpation: soft and no hepatosplenomegaly external exam normal Back/Spine Cervical Spine: cervical ROM normal Thoracic Spine / Upper Back: normal to inspection Lumbar Spine / Lower Back: normal to inspection Extremity normal to inspection General Extremity: normal exam except as noted Skin no rashes or lesions noted Neuro oriented x3 Psych Appearance: grossly normal Speech: normal speech Thought Content: normal thought content Judgement: judgement good Nursing Assessment and Debridement Post-Debridement Measurements and Additional Note: Post-Debridement Measurements/Treatment - Nurse 1 - General Ulcer Assessment Start: 08/23/21 08:10 Freq: Status: Active Protocol: [email or web address].[email or web address] Activity Type Activity Date Activity User E-Sign Co-Sign Detail Recorded Client Recorded Date Recorded By Document 08/23/21 08:11 VIC [id number] 08/23/21 08:25 VIC 08/23/21 08:11 - Today's Visit Information Type of service HBO Consult Arrival Mode Ambulatory Transfer Assist (Other) daughter Patient Identification Verified (Name Yes ) Patient Requires Transmission-Based No Precautions Safety Precautions NA Height and Weight Height 5 ft 4 in Weight 130 lb Weight in Pounds 130.0 lbs Body Mass Index (BMI) 22.3 BMI Classification Normal BSA - Gabe 1.63 Vital Signs Temperature (97.8 F-99.1 F) 98 F Temperature Source Temporal Pulse Rate (60-100 beats/min) 95 Pulse Location Monitor Blood Pressure (90/60-120/80 mm Hg) 152/88 H Blood Pressure Mean (mm Hg) 109 Source Manual 08/23/21 0918 <Electronically signed by Joya Galvez NP BOOTH CLEANER-C> Cosigner Signature (if applicable): CC: Signed Kya Gonzalez FISH CLEANER Work Phone: Start: 08-11-2021 End: 08-11-2021 Radiation Oncology Visit Comments: See Note; NOTES: [facility] [address] [place] [id number] OFFICE VISIT Date of Service: 08/11/21 1036 MR#: [id number] Acct: [id number] Name: MY JAMA Rep #: [id number] : 1960 From: Santiago Sellers DO Age/Sex: 61/M [place] [facility] Status: Signed Intake Vital Signs 08/11/21 10:36 Weight: 129 lb 2 oz BP 181/82 H Blood Pressure Location Lt brachial Position Sitting Respiration 14 Pulse 82 Pulse Source Monitor Temp 98.2 F Temperature Source Tympanic Pulse Oximetry (%) 100 Oxygen Delivery Method room air Intake Visit Reasons: FOLLOWUP HEAD/NECK Chief Complaint: squamous cell cancer of the head and neck follow-up Metal Hanging Helper Required: No Is patient in pain?: No Allergies No Known Allergies Allergy (Verified 08/11/21 10:38) Medications Levothyroxine 75 mg PO DAILY 08/25/20 [History Confirmed 08/11/21] pentoxifylline 400 mg tablet,extended release 400 mg PO TID #90 tab 05/17/21 [Rx Confirmed 08/11/21] vitamin E mixed 1,000 unit capsule 1,000 unit PO DAILY #30 cap 05/17/21 [Rx Confirmed 08/11/21] PFSH PFSH Medical History (Updated 07/26/21 @ 00:00 by Júnior Prasad) Acid reflux Anemia Cancer related pain Difficulty swallowing Epigastric pain Hypertension malignant squamous cell carcinoma lt neck Mass of left side of neck peg tube removed Home Medications Levothyroxine 75 mg PO DAILY 08/25/20 [History Last Taken Unknown] pentoxifylline 400 mg tablet,extended release 400 mg PO TID #90 tab 05/17/21 [Rx Last Taken Unknown] vitamin E mixed 1,000 unit capsule 1,000 unit PO DAILY #30 cap 05/17/21 [Rx Last Taken Unknown] Allergy/AdvReac Type Severity Reaction Status Date / Time No Known Allergies Allergy Verified 08/11/21 10:38 Family History Mother CVA (cerebral vascular accident) Surgical History history of biopsy neck History of removal of Port-a-Cath S/P percutaneous endoscopic gastrostomy (PEG) tube placement ( 01/26/19) s/p port placement ( 01/26/19) Social History (Updated 03/08/21 @ 10:02 by Angélica Hastings) Smoking Status: Light Smoker (<10/day) Tobacco: How many years used: 30 second hand exposure: Yes alcohol intake: current alcohol intake frequency: a few times a week substance use type: does not use seatbelt use: sometimes do you feel safe at home: Yes Diagnosis: My Jama is a 61-year-old male diagnosed with 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 From 02/10/2019 - 03/25/2019 he received definitive chemoradiation therapy consisting of 6996 cGy in 33 fractions with concurrent high dose cisplatin. History of Present Illness: 04/28/2018: Patient underwent EGD due to odynophagia. This demonstrated significant esophagitis in the distal esophagus measuring 1-2 cm in length. Biopsy was obtained. Duodenum and stomach appeared normal. Pathology demonstrated focal changes suggestive of reflux. 12/15/2018: Patient presented to with a left-sided lump involving his neck which was firm and nontender. This lesion was present for about 3-4 weeks. 12/17/2018: CT neck and chest was completed. There are a few small scattered pulmonary nodules present with the largest in the right upper lobe anterior segment measuring 5 mm with solid features and smooth margins. Recommended to have follow-up low-dose chest CT in 1 year for pulmonary nodule surveillance. There is a rim-enhancing centrally cystic mass distal to the angle of the mandible lateral to the hyoid cartilage along the anterior margin of the sternocleidomastoid muscle with wall thickness up to 4.9 mm. Process measures approximately 1.8 cm craniocaudal and 2 1.8 cm transverse and 2.9 cm AP. Posteriorly and deep to the SCM there is a 1.2 x 1.6 cm mildly enlarged lymph node and a few additional shotty lymph nodes present on the left. No evidence of cervical adenopathy on the right. Pharyngeal and laryngeal soft tissues appear normal. 12/22/2018: Ultrasound-guided FNA of the left neck mass was completed and pathology demonstrated malignant cells consistent with keratinizing squamous cell carcinoma with extensive necrosis, p16 negative. 12/31/2018: Evaluation by medical oncology. Recommended ENT evaluation with panendoscopy and PET/CT for staging. 01/02/2019: Patient was evaluated by ENT. On exam he was noted to have a large fixed left cervical radha conglomerate. Also noted was a 1 cm cystic lesion of the uvula. Otherwise oral and oropharyngeal mucosa were normal. Flexible laryngoscopy was performed which demonstrated no evidence of lesion. Small cystic lesion of the uvula was felt to be benign. 01/05/2019: PET scan was performed which demonstrated 2 separate nodular foci of increased glucose metabolism manifest in the left lateral neck level 3 generating a calculated maximum SUV of 8.6 with the larger soft tissue density demonstrating central photopenia in the largest corresponding lesion measured on CT is 2.8 cm x 3.5 cm. There is asymmetric increased FDG distribution defined in the left pharyngeal mucosal space generating a calculated maximum SUV of 3.4 with a maximum axial diameter of corresponding metabolic abnormality measuring 1.9 cm. There is no evidence of metastatic disease identified. Recommendation is to closely clinically evaluate the left pharyngeal area lesion for primary disease. 01/08/2019: Patient underwent dental extraction of numbers 7 through 13 and #14. 01/13/2019: Patient underwent dental extraction of #6 and 2 through 5, he also completed amalgam fillings of #21 through 22 and 28. Following this procedure he was confirmed to be cleared for radiation therapy. 01/26/2019: Patient underwent placement of PEG tube and port. 01/30/2019: Patient completed left tonsil excision and uvula excision. Pathology displayed no evidence of malignancy or high-grade squamous dysplasia. There was noted to be submucosal dilated minor salivary gland duct with oncocytic metaplasia in the uvula. From 02/10/2019 - 03/25/2019: Received 6996 cGy delivered to gross disease involving the left neck, 5940 cGy to the high risk mucosal sites (entire oropharynx) and high risk lymph node sites (left levels 2-5), and 5412 cGy delivered to the low risk mucosal sites (nasopharynx, larynx, hypopharynx) bilateral high level 2, bilateral supraclavicular fossa, and right neck levels 2-5). Treatment was completed using dose painting IMRT and a single VMAT plan and he received concurrent chemotherapy with high dose cisplatin (cycle 1: 02/10, cycle 2: 03/02, cycle 3: 03/23). 05/13/2019: CT chest was performed. In comparison to the study in November 2018 there is persistent multifocal nodular pleural thickening or tiny pleural-based nodules in the lower lobes which are unchanged in size or number since the previous study. This measures 4 mm. 06/26/2019: Patient underwent swallow study and then had discussion with speech therapy. Recommendations are for a mechanical soft textured and thin liquid diet. Exercises and other strategies were recommended and speech therapy will continue to follow-up. 06/29/2019: PET scan was performed which demonstrated no definitive quantitative scintigraphic evidence of recurrent/metastatic viable neoplasm, overall when compared to the prior PET scan dated 01/05/2019 there is currently an absence of defined viable neoplastic disease with interval resolution of the primary defined hypermetabolic foci. 07/16/2019: Follow up with medical oncology. Plan for surveillance CT chest in 3 months to reassess nonspecific lung nodules. 12/31/2019: Follow up with ENT. NPL showed no evidence of disease, epiglottic and arytenoid edema present. 03/30/2020: swallow study was performed. Recommendations are for regular/soft textured and thin liquid diet. 04/06/2020: CT chest was performed and demonstrated bilateral pulmonary nodules which are stable since the prior exam. No other evidence of disease is identified. 09/02/2020: CT chest with contrast was performed which demonstrated severe emphysema. Multiple lung nodules are stable and appear low risk. Recommend follow-up in 1 year. 01/25/2021: Patient had removal of the remaining teeth lower teeth 21???28. Patient was treated with antibiotics for slowly healing fibrotic tissue. Patient is also being treated with Trental/vitamin E. 02/27/2021: CT chest was completed. This demonstrated stable findings including small scattered noncalcified nodules seen in both lungs. Radiation Treatment History: 1) From 02/10/2019 - 03/25/2019: Received 6996 cGy delivered to gross disease involving the left neck, 5940 cGy to the high risk mucosal sites (entire oropharynx) and high risk lymph node sites (left levels 2-5), and 5412 cGy delivered to the low risk mucosal sites (nasopharynx, larynx, hypopharynx) bilateral high level 2, bilateral supraclavicular fossa, and right neck levels 2-5). Treatment was completed using dose painting IMRT and a single VMAT plan and he received concurrent chemotherapy with high dose cisplatin (cycle 1: 02/10, cycle 2: 03/02, cycle 3: 03/23). Interval History: Patient presents for follow-up about 28 months after completing definitive chemoradiation. Since his last visit he reports taking vitamin E but not Trental, he was prescribed antibiotics by his dentist which has not improved his healing. He is also now seen an oral surgeon who recommended pursuing hyperbaric oxygen following discussion with me about the radiation plan. He does report occasional discomfort within his chin but otherwise denies having any pain, this pain that he feels is typically very mild and intermittent. He does not believe his gum has healed very well but appears mostly stable to him. He still eats a relatively regular diet without teeth. He has not had any weight loss. He denies having any pain with swallowing, he also denies coughing or choking with swallowing. He does have dry mouth and has to drink a lot of fluids while he is eating. He does use Biotene spray for occasional relief but mostly just uses water. He believes his taste is completely normal. He continues to do neck and swallowing exercises. He continues to have fibrosis involving the left greater than right neck but does report having a regular neck range of motion without lymphedema. He denies having hand weakness/numbness. He does have difficulty with hearing bilaterally at baseline and he believes this is stable. He denies hoarseness, headache, otalgia, vision changes, cough, shortness of breath, hemoptysis, focal arm weakness/numbness. He denies headaches, bone pain, or excess fatigue. He completes all activities of daily living without much difficulty. He denies other problems or concerns at this time. Review of Systems: A 12-point review of systems was completed and was negative except for what is noted in the HPI/Interval History and by the nurse. 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 HEENT: Mucous membranes moist. Evidence of left tonsillectomy extending to the soft palate and including the uvula area appears to be healing well. No erythema or mucositis. No trismus. Edentulous. In the anterior lower jaw there is fibrous tissue at the site of previous extractions, with a largening area of poor healing with a deeper wound, potential central bone exposure. BOT without firmness or asymmetry. No evidence of recurrence involving the oropharynx including soft palate and bilateral tonsillar fossa. Pupils are equal, round, and reactive to light and accommodation. Extraocular movements are intact. Sclerae are anicteric. NECK: Supple,with no thyromegaly, and non-tender. Trachea midline. The previously noted left neck adenopathy remains flattened and resolved. No erythema, left neck hypopigmentation present. Neck range of motion is intact but does have left greater than right neck fibrosis. There are no palpable lymph nodes in the neck or supraclavicular region. No lymphedema. CARDIAC: Regular rate and rhythm. Normal S1, S2. No murmurs, rubs, or gallops. PULMONARY/CHEST: Lungs are clear to auscultation and percussion bilaterally. No wheezes, rhonchi, or crackles noted. No increased work of breathing. ABDOMINAL: Abdomen soft, non-tender, non-distended. No hepatomegaly. Normoactive bowel sounds in all four quadrants. No guarding, rebound. BACK: Straight and aligned. No CVA tenderness. Axial skeleton non-tender to percussion. EXTREMITIES: Full range of motion in all four extremities, with normal strength equally and symmetrically. No evidence of edema. No clubbing. NEUROLOGICAL EXAM: Alert and oriented x 3. Cranial nerves II through XII are grossly intact. No focal neurological deficit. Speech is fluent. There is no upper or lower extremity sensory deficit or motor deficit. Muscle strength is 5/5 in all muscle groups. Gait and posture are steady. PSYCHIATRIC: Appropriate mood and affect for the clinical situation. 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 From 02/10/2019 - 03/25/2019 he received definitive chemoradiation therapy consisting of 6996 cGy in 33 fractions with concurrent high dose cisplatin. Patient returns about 28 months after completing definitive chemoradiation. There is no evidence of disease on exam. 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 Given the location and the proximity to remove teeth I do not feel this is disease recurrence. 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 He has not been taking Trental and vitamin E as prescribed and this was reiterated to him and will be represcribed. The area of poor healing had very low-dose radiation but potentially some blood supply has been impacted to the area resulting in slow or worsened wound healing. He will also continue to follow-up with [facility] REGISTERED NURSE as indicated but is swallowing well. He reports that he continues to see his ENT once per year, also recommended audiology exam given his poor hearing but he has not yet done this. Given the minor discomfort in his chin we will plan to obtain CT head and neck to evaluate for underlying infection or osteomyelitis given the poor healing in this area. I did discuss it is necessary to have close follow-up with myself and ENT for exams. I recommended he return to see me in 3 months to assess healing. He was in agreement with my recommendations and he was instructed to call with any further questions or concerns in the interim. Thank you for allowing me to participate in the management and care of your patient. If I may answer any questions in the interim, please do not hesitate to contact me at any time. Santiago Sellers DO, MS Environmental Services Floor Tech, Department of Radiation Oncology [facility] Coding Level of Care Code Off vis,est,level 3 Diagnoses History of head and neck cancer Z85.89 08/11/21 1124 <Electronically signed by Santiago Sellers DO> Date Santiago Sellers DO Cosign Signature: Date (if applicable) CC: BOOTH CLEANER-C Kya Gonzalez; Dr. Renny Burgos MD; Dr. Quincy Simpson MD; DEYSI Puentes FISH CLEANER Work Phone: Start: 07-18-2021 End: 07-19-2021 Emergency Department Summary Comments: See Note; NOTES: [facility] Medical Records Department [address] [place] [address] Emergency Department Summary 07/18/21 MR#: [id number] Acct: [id number] Name: MY JAMA Rep #: [id number] : 1960 61 From: Jason Robles DO PCP: YARI Pardo Status:DEP ER Location: ED HPI History of Present Illness Chief Complaint: Other, Pain/Inj Detail of Chief Complaint: Ringing in ears Informant: patient Narrative Narrative: Patient presents to the emergency department with ringing in ears and noises in his head that he started noticing last evening when lying flat. Patient states he would get up and go downstairs and symptoms would resolve but then when he tried to lay down again he would hear a ringing in music like sound in his ears. Patient states he had a hard time sleeping because of this. He denies significant headache. Patient also has an appointment scheduled in 6 days to see a dentist as he has had some issues with some teeth that were pulled and has had a nonhealing hole in his mandible. He denies any changes to it or fevers or chills or sweats. Family was concerned about potential for systemic infection. [facility] Medical History (Updated 07/18/21 @ 15:[address] Jason Robles, ) Acid reflux Anemia Cancer related pain Difficulty swallowing Epigastric pain Hypertension malignant squamous cell carcinoma lt neck Mass of left side of neck peg tube removed Home Medications Levothyroxine 75 mg PO DAILY 08/25/20 [History Last Taken Unknown] pentoxifylline 400 mg tablet,extended release 400 mg PO TID #90 tab 05/17/21 [Rx Last Taken Unknown] vitamin E mixed 1,000 unit capsule 1,000 unit PO DAILY #30 cap 05/17/21 [Rx Last Taken Unknown] Allergy/AdvReac Type Severity Reaction Status Date / Time No Known Allergies Allergy Verified 07/18/21 13:15 Family History Mother CVA (cerebral vascular accident) Surgical History history of biopsy neck History of removal of Port-a-Cath S/P percutaneous endoscopic gastrostomy (PEG) tube placement ( 01/26/19) s/p port placement ( 01/26/19) Social History (Updated 03/08/21 @ 10:02 by Angélica Hastings) Smoking Status: Light Smoker (<10/day) Tobacco: How many years used: 30 second hand exposure: Yes alcohol intake: current alcohol intake frequency: a few times a week substance use type: does not use seatbelt use: sometimes do you feel safe at home: Yes ROS ROS ED ROS Narrative Ringing in ears and music in head. Constitutional Constitutional ED: Reports systems reviewed and no addt'l complaints, except as documented; Denies body ache(s), change in weight or chills Eyes Eyes: Denies acute decrease in peripheral vision, change in vision, double vision or loss of vision ENT ENT ED: Reports none; Denies ear pain, lip swelling, loss taste/smell, neck pain, otalgia or sore throat Cardiovascular Cardiovascular: Reports none; Denies abdominal pain, chest pain with activity, leg edema, lightheadedness, palpitations, rapid heart rate or syncope Respiratory/Chest Respiratory/Chest: Reports none; Denies change in mental status, dry cough, dyspnea, hemoptysis, shortness of breath at rest or shortness of breath with exertion Gastrointestinal Gastrointestinal: Reports none; Denies abdominal pain, change in stool character, diarrhea, hematemesis, hematochezia, melena, rectal bleeding or vomiting Genitourinary Genitourinary ED: Reports none; Denies abdominal discomfort, anuria, dysuria, genital pain or polyuria Musculoskeletal Musculoskeletal: Reports none; Denies arthralgias, back pain, difficulty walking, extremity pain, muscle weakness or myalgias Integumentary Reports none; Denies abscess or rash Neurologic Neurologic: Reports none; Denies abnormal gait, confusion, focal weakness, frequent falls, headache(s), loss of vision, numbness, paresthesias, radicular pain, vertigo or weakness Psychiatric Psychiatric: Reports systems reviewed and no addt'l complaints, except as documented and none; Denies behavioral changes, confusion, difficulty concentrating, hallucinations, suicidal ideation, tactile hallucinations or visual hallucinations Endocrine Endocrinology: Denies none, cold intolerance, excessive sweating, fatigue or heat intolerance Hematologic/Lymphatic Hematologic/Lymphatic: Reports none; Denies anemia, easy bleeding or easy bruising Allergic/Immunologic Allergic/Immunologic ED: Denies as per HPI, none, lip swelling, mouth swelling, throat swelling, tongue swelling or hives EXAM Physical Exam Const Vital Signs: 07/18/21 13:10 07/18/21 13:17 07/18/21 15:06 Temperature 98.5 F Temperature Source Temporal Pulse Rate 89 Pulse Rate [Lying] 67 Pulse Rate [Sitting] 72 Pulse Rate [Standing] 78 Respiratory Rate 16 Respiratory Effort Normal Respiratory Pattern Normal Blood Pressure 193/92 H Blood Pressure [Lying] 176/83 H Blood Pressure [Sitting] 174/92 H Blood Pressure [Standing] 169/87 H Blood Pressure Mean 125 Blood Pressure Mean [Lying] 114 Blood Pressure Mean [Sitting] 119 Blood Pressure Mean [Standing] 114 Pulse Ox 100 Oxygen Delivery Method Room Air Positive well nourished and well developed General Appearance ED: well developed and NAD HEENT Reports TM's clear and moist mucous membranes HEENT Narrative: Firm and indurated tissues under his submental region related to prior scarring from radiation and chemotherapy. Evaluation of his mouth does reveal a defect in the gingiva measuring approximately 3.5 x 2 cm. He is edentulous. There is no facial erythema or cellulitis. No discrete abscess noted. TMs are clear bilaterally. normocephalic and atraumatic; Negative for trauma or tenderness Tympanic Membrane ED: Yes TM's clear Eyes PERRL and EOMs intact bilaterally General Eye ED: Negative for pale conjunctiva or scleral icterus Neck no lymphadenopathy, supple and no JVD General: Negative for tenderness Chest Wall inspection of chest normal and palpation of chest normal Chest: Negative for tenderness Resp normal respiratory effort and clear to auscultation bilaterally Effort and Inspection: Negative for respiratory distress or pain with movement Auscultation: Negative for rhonchi, wheezes or diminished lung sounds Cardio regular rate, regular rhythm, S1 normal heart sound, S2 normal heart sound and no murmurs Peripheral Pulses: pulses 2+ throughout GI normal to inspection, nondistended, normoactive bowel sounds, soft to palpation, non-tender, non- distended and no masses Back/Spine no CVA tenderness and no thoracic nor lumbar tenderness Extremity normal to inspection General Extremety ED: Negative for edema General Extremity: Negative for edema Neuro oriented x3, CN's II-XII intact bilaterally, no sensory deficits noted and gait normal Sensorium / Orientation: awake, alert, oriented to person, oriented to place and oriented to time Motor Exam: strength 5/5 throughout and strength abnormal Psych mental status grossly normal Skin no rashes or lesions noted and no wounds MDM MDM MDM Narrative Medical decision making narrative: IV line established on arrival. CTA of the head and neck with contrast was unremarkable. Patient was noted to have low sodium of 123. Evaluating the last several years of blood work it was noted that patient chronically has a depressed sodium and has been as low as 121 but more recently has been 126 and 127. His family member states that he drinks every day. I suspect his low sodium is likely related to alcohol use as he does not use diuretics. He is not on blood pressure medication. Patient advised to follow-up with his primary care physician within the next 3 to 5 days to have repeat blood work. Also recommended that he get started on blood pressure medication. At this point etiology of the ringing in his head is unclear and he has not had any more such symptoms. He denies aspirin use. Lab Data Attestation: I reviewed the patient's lab results. Labs: Laboratory Results - last 24 hr 07/18/21 07/18/21 13:48 13:48 WBC 7.3 RBC 4.62 Hgb 14.8 Hct 42.2 MCV 91.3 MCH 32.0 MCHC 35.1 RDW Std Deviation 42.0 RDW Coeff of Jennifer 12.5 Plt Count 320 MPV 8.2 Immature Gran % (Auto) 0.700 Neut % (Auto) 65.9 Lymph % (Auto) 20.1 [place] % (Auto) 11.9 H Eos % (Auto) 0.7 Baso % (Auto) 0.7 Absolute Neuts (auto) 4.8 Absolute Lymphs (auto) 1.47 Nucleated RBC % 0 Sodium 123 L Potassium 3.8 Chloride 86 L Carbon Dioxide 27.0 Anion Gap 10 BUN 6 L Creatinine 0.46 L Estim Creat Clear Calc 144.21 Est GFR (MDRD) Af Amer 242 Est GFR (MDRD) Non-Af 200 BUN/Creatinine Ratio 13.1 Glucose 90 Calcium 9.2 Radiography Diagnostic Testing: Clinical Impression(s) from Imaging Studies Head/Neck CTA 07/18/21 13:34 IMPRESSION: Mild calcific plaque at the origin of the right internal carotid artery causing less than 50% narrowing. Electronically Signed: Bib Reeves MD at 14:58 EDT , Service support , Discharge Plan Triage Chief Complaint: Other, Pain/Inj ED Provider: Jason Robles Dx/Rx/DC Orders Clinical Impression: Ear ringing, Acute hyponatremia Instructions: Tinnitus (Ringing in the Ears), ED Hyponatremia Prescriptions: No Action Levothyroxine 75 mg PO DAILY RF: 0 pentoxifylline 400 mg tablet extended release 400 mg PO TID Qty: 90 RF: 5 vitamin E mixed 1,000 unit capsule 1,000 unit PO DAILY Qty: 30 RF: 5 Primary Care Provider: Kya Gonzalez NP Referrals: Kya Gonzalez BOOTH CLEANER, BOOTH CLEANER-C [Primary Care Provider] - 3-5 Days Disposition Disposition: Home, Self Care What to do if you have Problems For any increased pain, shortness of breath, bleeding, nausea or vomiting, chest pain, or any unexpected problems, contact your Primary Care Provider. Call [facility] ([phone]) or report to the closest Emergency Room. Call 911 if necessary. 07/18/21 1554 <Electronically signed by Jason Robles DO> Cosigner Signature (if applicable): CC: BOOTH CLEANER-Damaris Gonzalez Signed Kay Gonzalez FISH CLEANER Work Phone: Start: 07-18-2021 End: 07-18-2021 CTA Head AND Neck W/ Contrast Comments: See Note; NOTES: [facility] Imaging Services [address] [place] [address] CTA Head AND Neck W/ Contrast MR#: [id number] Acct: [id number] Name: MY JAMA Rep #: [id number] : 1960 M 61 From: Bib ghosh MD PCP: YARI Pardo Status: REG ER Study: CTA Head AND Neck W/ Contrast Date of Exam: Exam# [id number] Ordering Dr: Jason Robles DO STUDY: CTA HEAD AND NECK WITH CONTRAST REASON FOR EXAM: Male, 61 years old. Ringing in ears RADIATION DOSAGE (If Supplied By Facility): CTDIvol = ( 30.31 ) mGy, DLP = ( 1501.15 ) mGycm TECHNIQUE: CT angiography was performed with a multi-detector CT scanner. Data acquisition was obtained from the skull base through the vertex following intravenous administration of IV 100mL Isovue-370. MIP images were reconstructed from the axial data set. Post-processing of the angiographic images was performed, with multiplanar reformation and 3D reconstruction. Individualized dose optimization techniques were used for this CT. COMPARISON: No relevant priors. FINDINGS: Normal bilateral petrous carotid arteries. There is calcified plaque formation of the right cavernous carotid artery, without a cross-sectional luminal stenosis. There is calcified plaque formation of the left cavernous carotid artery, without a cross-sectional luminal stenosis. Normal right A1 segments of the anterior cerebral artery. Normal left A1 segments of the anterior cerebral artery. Normal intact anterior communicating artery (ACOM). Normal bilateral A2 segments of the anterior cerebral arteries. Normal right M1 and M2 segments of the middle cerebral arteries, with a normal M1 bifurcation. Normal left M1 and M2 segments of the middle cerebral arteries, with a normal M1 bifurcation. Normal right posterior communicating artery (PCOM). Normal left posterior communicating artery (PCOM). Normal bilateral vertebral arteries. Normal basilar artery with a normal basilar bifurcation. The visualized bilateral superior cerebellar (SCA) arteries are normal. Normal bilateral P1, P2 and visualized P3 segments of the posterior cerebral arteries. There is no demonstrated aneurysm of the [place]. A tiny lacuna is seen in the insular cortex of the left temporal lobe. Mild degree of cerebral atrophy. Mild degree of mucosal thickening of the ethmoid sinuses bilaterally. There is evidence of polyps or retention cysts at the bases of both maxillary sinuses. AORTIC ARCH: Normal visualized aortic arch. Normal origins of the brachiocephalic, left common carotid, and left subclavian arteries. RIGHT CAROTID ARTERIES: Normal right common carotid artery (CCA). Normal right common carotid bulb. There is mild atherosclerotic plaque formation of the origin of the right internal carotid artery with less than 50% cross sectional diameter stenosis. Normal visualized cervical portion of the right internal carotid artery. Normal origin of the right external carotid artery (ECA). LEFT CAROTID ARTERIES: Normal left common carotid artery (CCA). Normal left common carotid bulb. Normal origin of the left internal carotid (ICA) artery without a hemodynamically significant stenosis. Normal visualized cervical portion of the left internal carotid artery. Normal origin of the left external carotid artery (ECA). VERTEBRAL ARTERIES: Normal bilateral vertebral arteries. CT/CTA Head AND Neck W/ Contrast IMPRESSION: Mild calcific plaque at the origin of the right internal carotid artery causing less than 50% narrowing. Electronically Signed: Bib Reeves MD at 14:58 EDT , Service support , CC: YARI Gonzalez; Dr. Jason Robles DO Wood Router Hand: Signed Kya Gonzalez FISH CLEANER Work Phone: Start: 05-15-2021 End: 05-15-2021 Radiation Oncology Visit Comments: See Note; NOTES: [facility] [address] [place] [id number] OFFICE VISIT Date of Service: 05/15/21 1058 MR#: [id number] Acct: [id number] Name: MY JAMA Rep #: [id number] : 1960 From: Santiago Sellers DO Age/Sex: 60/M Location: [facility] Status: Signed Intake Vital Signs 05/15/21 10:58 Weight: 124 lb BP 166/85 H Blood Pressure Location Lt brachial Position Sitting Respiration 14 Pulse 86 Pulse Source Monitor Temp 98.2 F Temperature Source Tympanic Pulse Oximetry (%) 98 Oxygen Delivery Method room air Intake Visit Reasons: FOLLOWUP HEAD/NECK CANCER Chief Complaint: squamous cell cancer of the head and neck follow-up Metal Hanging Helper Required: No Is patient in pain?: No Allergies No Known Allergies Allergy (Verified 05/15/21 11:01) Medications Levothyroxine PO 08/25/20 [History Confirmed 05/15/21] [facility] Medical History (Updated 03/20/21 @ 11:[address] Santiago Sellers DO) Acid reflux Anemia Cancer related pain Difficulty swallowing Epigastric pain Hypertension malignant squamous cell carcinoma lt neck Mass of left side of neck peg tube removed Home Medications Levothyroxine PO 08/25/20 [History Last Taken Unknown] Allergy/AdvReac Type Severity Reaction Status Date / Time No Known Allergies Allergy Verified 05/15/21 11:01 Family History Mother CVA (cerebral vascular accident) Surgical History history of biopsy neck History of removal of Port-a-Cath S/P percutaneous endoscopic gastrostomy (PEG) tube placement ( 01/26/19) s/p port placement ( 01/26/19) Social History (Updated 03/08/21 @ 10:02 by Angélica Hastings) Smoking Status: Former smoker Tobacco: How many years used: 30 second hand exposure: Yes alcohol intake: current alcohol intake frequency: a few times a week substance use type: does not use seatbelt use: sometimes do you feel safe at home: Yes Diagnosis: My Jama is a 60-year-old male diagnosed with 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 From 02/10/2019 - 03/25/2019 he received definitive chemoradiation therapy consisting of 6996 cGy in 33 fractions with concurrent high dose cisplatin. History of Present Illness: 04/28/2018: Patient underwent EGD due to odynophagia. This demonstrated significant esophagitis in the distal esophagus measuring 1-2 cm in length. Biopsy was obtained. Duodenum and stomach appeared normal. Pathology demonstrated focal changes suggestive of reflux. 12/15/2018: Patient presented to with a left-sided lump involving his neck which was firm and nontender. This lesion was present for about 3-4 weeks. 12/17/2018: CT neck and chest was completed. There are a few small scattered pulmonary nodules present with the largest in the right upper lobe anterior segment measuring 5 mm with solid features and smooth margins. Recommended to have follow-up low-dose chest CT in 1 year for pulmonary nodule surveillance. There is a rim-enhancing centrally cystic mass distal to the angle of the mandible lateral to the hyoid cartilage along the anterior margin of the sternocleidomastoid muscle with wall thickness up to 4.9 mm. Process measures approximately 1.8 cm craniocaudal and 2 1.8 cm transverse and 2.9 cm AP. Posteriorly and deep to the SCM there is a 1.2 x 1.6 cm mildly enlarged lymph node and a few additional shotty lymph nodes present on the left. No evidence of cervical adenopathy on the right. Pharyngeal and laryngeal soft tissues appear normal. 12/22/2018: Ultrasound-guided FNA of the left neck mass was completed and pathology demonstrated malignant cells consistent with keratinizing squamous cell carcinoma with extensive necrosis, p16 negative. 12/31/2018: Evaluation by medical oncology. Recommended ENT evaluation with panendoscopy and PET/CT for staging. 01/02/2019: Patient was evaluated by ENT. On exam he was noted to have a large fixed left cervical radha conglomerate. Also noted was a 1 cm cystic lesion of the uvula. Otherwise oral and oropharyngeal mucosa were normal. Flexible laryngoscopy was performed which demonstrated no evidence of lesion. Small cystic lesion of the uvula was felt to be benign. 01/05/2019: PET scan was performed which demonstrated 2 separate nodular foci of increased glucose metabolism manifest in the left lateral neck level 3 generating a calculated maximum SUV of 8.6 with the larger soft tissue density demonstrating central photopenia in the largest corresponding lesion measured on CT is 2.8 cm x 3.5 cm. There is asymmetric increased FDG distribution defined in the left pharyngeal mucosal space generating a calculated maximum SUV of 3.4 with a maximum axial diameter of corresponding metabolic abnormality measuring 1.9 cm. There is no evidence of metastatic disease identified. Recommendation is to closely clinically evaluate the left pharyngeal area lesion for primary disease. 01/08/2019: Patient underwent dental extraction of numbers 7 through 13 and #14. 01/13/2019: Patient underwent dental extraction of #6 and 2 through 5, he also completed amalgam fillings of #21 through 22 and 28. Following this procedure he was confirmed to be cleared for radiation therapy. 01/26/2019: Patient underwent placement of PEG tube and port. 01/30/2019: Patient completed left tonsil excision and uvula excision. Pathology displayed no evidence of malignancy or high-grade squamous dysplasia. There was noted to be submucosal dilated minor salivary gland duct with oncocytic metaplasia in the uvula. From 02/10/2019 - 03/25/2019: Received 6996 cGy delivered to gross disease involving the left neck, 5940 cGy to the high risk mucosal sites (entire oropharynx) and high risk lymph node sites (left levels 2-5), and 5412 cGy delivered to the low risk mucosal sites (nasopharynx, larynx, hypopharynx) bilateral high level 2, bilateral supraclavicular fossa, and right neck levels 2-5). Treatment was completed using dose painting IMRT and a single VMAT plan and he received concurrent chemotherapy with high dose cisplatin (cycle 1: 02/10, cycle 2: 03/02, cycle 3: 03/23). 05/13/2019: CT chest was performed. In comparison to the study in November 2018 there is persistent multifocal nodular pleural thickening or tiny pleural-based nodules in the lower lobes which are unchanged in size or number since the previous study. This measures 4 mm. 06/26/2019: Patient underwent swallow study and then had discussion with speech therapy. Recommendations are for a mechanical soft textured and thin liquid diet. Exercises and other strategies were recommended and speech therapy will continue to follow-up. 06/29/2019: PET scan was performed which demonstrated no definitive quantitative scintigraphic evidence of recurrent/metastatic viable neoplasm, overall when compared to the prior PET scan dated 01/05/2019 there is currently an absence of defined viable neoplastic disease with interval resolution of the primary defined hypermetabolic foci. 07/16/2019: Follow up with medical oncology. Plan for surveillance CT chest in 3 months to reassess nonspecific lung nodules. 12/31/2019: Follow up with ENT. NPL showed no evidence of disease, epiglottic and arytenoid edema present. 03/30/2020: swallow study was performed. Recommendations are for regular/soft textured and thin liquid diet. 04/06/2020: CT chest was performed and demonstrated bilateral pulmonary nodules which are stable since the prior exam. No other evidence of disease is identified. 09/02/2020: CT chest with contrast was performed which demonstrated severe emphysema. Multiple lung nodules are stable and appear low risk. Recommend follow-up in 1 year. 01/25/2021: Patient had removal of the remaining teeth lower teeth 21???28. Patient was treated with antibiotics for slowly healing fibrotic tissue. Patient is also being treated with Trental/vitamin E. 02/27/2021: CT chest was completed. This demonstrated stable findings including small scattered noncalcified nodules seen in both lungs. Radiation Treatment History: 1) From 02/10/2019 - 03/25/2019: Received 6996 cGy delivered to gross disease involving the left neck, 5940 cGy to the high risk mucosal sites (entire oropharynx) and high risk lymph node sites (left levels 2-5), and 5412 cGy delivered to the low risk mucosal sites (nasopharynx, larynx, hypopharynx) bilateral high level 2, bilateral supraclavicular fossa, and right neck levels 2-5). Treatment was completed using dose painting IMRT and a single VMAT plan and he received concurrent chemotherapy with high dose cisplatin (cycle 1: 02/10, cycle 2: 03/02, cycle 3: 03/23). Interval History: Patient presents for follow-up about 26 months after completing definitive chemoradiation. Since his last visit he took Trental/vitamin E E for 1 month but then did not get any refills, he has not been taking any antibiotics. He does not believe his gum has healed very well but appears mostly stable to him. He reports occasional mild discomfort in this area which does not really bother him. He has not seen his dentist in several months but he is continuing to do salt water rinses per their recommendation. He could still eat a relatively regular diet without teeth. He has not had any weight loss. He denies having any pain with swallowing, he also denies coughing or choking with swallowing. He does have dry mouth and has to drink a lot of fluids while he is eating. He does use Biotene spray for occasional relief but mostly just uses water. He believes his taste is completely normal. He continues to do neck and swallowing exercises. He continues to have fibrosis involving the left greater than right neck but does report having a regular neck range of motion without lymphedema. He denies having hand weakness/numbness. He does have difficulty with hearing bilaterally at baseline and he believes this is stable. He is eating well without unexpected weight loss. He denies worsening hoarseness, headache, otalgia, vision changes, hearing loss, cough, shortness of breath, hemoptysis, focal arm weakness/numbness. He denies headaches, bone pain, or excess fatigue. He completes all activities of daily living without much difficulty. He denies other problems or concerns at this time. Review of Systems: A 12-point review of systems was completed and was negative except for what is noted in the HPI/Interval History and by the nurse. Physical Exam: Weight: 124 lbs (weight at end of [employer] 03/25/2019: 126.6 lbs) ECO KARNOFSKY SCORE: 80% CONSTITUTIONAL: Well-developed, well-nourished, and in no apparent distress. HEENT: Mucous membranes moist. Evidence of left tonsillectomy extending to the soft palate and including the uvula area appears to be healing well. No erythema or mucositis. No trismus. Now edentulous. In the anterior lower jaw there is fibrous tissue at the site of previous extractions, one site shows poor healing with a deeper wound, no obvious exposed bone is identified. BOT without firmness or asymmetry. No evidence of recurrence involving the oropharynx including soft palate and bilateral tonsillar fossa. Pupils are equal, round, and reactive to light and accommodation. Extraocular movements are intact. Sclerae are anicteric. NECK: Supple,with no thyromegaly, and non-tender. Trachea midline. The previously noted left neck adenopathy remains flattened and resolved. No erythema, left neck hypopigmentation present. Neck range of motion is intact but does have left greater than right neck fibrosis. There are no palpable lymph nodes in the neck or supraclavicular region. No lymphedema. CARDIAC: Regular rate and rhythm. Normal S1, S2. No murmurs, rubs, or gallops. PULMONARY/CHEST: Lungs are clear to auscultation and percussion bilaterally. No wheezes, rhonchi, or crackles noted. No increased work of breathing. ABDOMINAL: Abdomen soft, non-tender, non-distended. No hepatomegaly. Normoactive bowel sounds in all four quadrants. No guarding, rebound. BACK: Straight and aligned. No CVA tenderness. Axial skeleton non-tender to percussion. EXTREMITIES: Full range of motion in all four extremities, with normal strength equally and symmetrically. No evidence of edema. No clubbing. NEUROLOGICAL EXAM: Alert and oriented x 3. Cranial nerves II through XII are grossly intact. No focal neurological deficit. Speech is fluent. There is no upper or lower extremity sensory deficit or motor deficit. Muscle strength is 5/5 in all muscle groups. Gait and posture are steady. PSYCHIATRIC: Appropriate mood and affect for the clinical situation. 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 From 02/10/2019 - 03/25/2019 he received definitive chemoradiation therapy consisting of 6996 cGy in 33 fractions with concurrent high dose cisplatin. Patient returns about 26 months after completing definitive chemoradiation. There is no evidence of disease on exam. He returns for a short interval follow-up to assess healing, he took Trental/vitamin E for 1 month but then did not refill. He does not feel as if his gums have healed very much and he has not been back to see his dentist or been taking antibiotics. Exam today appears to show stability to may be slight worsening in the anterior lower gum healing. Recommend that he see his dentist for close assessment and consider escalating to a specialist in the event that any surgical intervention will be needed for healing. The area of poor healing had very low- dose radiation but potentially some blood supply has been impacted to the area resulting in slow or worsened wound healing. He will also continue to follow-up with [facility] as indicated but is swallowing well. He reports that he continues to see his ENT once per year, also recommended audiology exam given his poor hearing to consider intervention. Follow-up chest CT in February demonstrated stability of previously noted lung nodules and any further imaging will be done through medical oncology. I do not recommend further imaging for the head neck area at this time. I did discuss it is necessary to have close follow-up with myself and ENT for exams. I recommended he return to see me in 2 months to assess healing and to see his dentist in the very near future for an assessment. He was in agreement with my recommendations and he was instructed to call with any further questions or concerns in the interim. Thank you for allowing me to participate in the management and care of your patient. If I may answer any questions in the interim, please do not hesitate to contact me at any time. Santiago Sellers DO, MS Environmental Services Floor Tech, Department of Radiation Oncology [facility] Coding Level of Care Code Off vis,est,level 3 Diagnoses History of head and neck cancer Z85.89 05/15/21 1124 <Electronically signed by Santiago Sellers DO> Date Santiago Sellers DO Cosigner Signature: Date (if applicable) CC: BOOTH CLEANER-C Kya Gonzalez; Dr. Renny Burgos MD; MD Kya Zaman FISH CLEANER Work Phone: Start: 03-20-2021 End: 03-20-2021 Radiation Oncology Visit Comments: See Note; NOTES: [facility] [address] [address] OFFICE VISIT Date of Service: 03/20/21 1101 MR#: [id number] Acct: [id number] Name: MY JAMA Rep #: [id number] : 1960 From: Santiago Sellers DO Age/Sex: 60/M Location: [facility] [place] Status: Signed Intake Vital Signs 03/20/21 11:01 Weight: 122 lb BP 156/84 H Blood Pressure Location Rt brachial Respiration 14 Pulse 101 H Pulse Source Monitor Temp 98 F Temperature Source Tympanic Pulse Oximetry (%) 95 Oxygen Delivery Method room air Intake Visit Reasons: HIDALGO Chief Complaint: squamous cell cancer of the head and neck follow-up Metal Hanging Helper Required: No Is patient in pain?: No Allergies No Known Allergies Allergy (Verified 03/20/21 11:04) Medications Levothyroxine PO 08/25/20 [History Confirmed 03/20/21] PFSH PFS Medical History (Updated 03/20/21 @ 11:[address] Santiago Sellers, DO) Acid reflux Anemia Cancer related pain Difficulty swallowing Epigastric pain Hypertension malignant squamous cell carcinoma lt neck Mass of left side of neck peg tube removed Home Medications Levothyroxine PO 08/25/20 [History Last Taken Unknown] Allergy/AdvReac Type Severity Reaction Status Date / Time No Known Allergies Allergy Verified 03/20/21 11:04 Family History Mother CVA (cerebral vascular accident) Surgical History history of biopsy neck History of removal of Port-a-Cath S/P percutaneous endoscopic gastrostomy (PEG) tube placement ( 01/26/19) s/p port placement ( 01/26/19) Social History (Updated 03/08/21 @ 10:02 by Angélica Hastings) Smoking Status: Former smoker Tobacco: How many years used: 30 second hand exposure: Yes alcohol intake: current alcohol intake frequency: a few times a week substance use type: does not use seatbelt use: sometimes do you feel safe at home: Yes Diagnosis: My Jama is a 60-year-old male diagnosed with 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 From 02/10/2019 - 03/25/2019 he received definitive chemoradiation therapy consisting of 6996 cGy in 33 fractions with concurrent high dose cisplatin. History of Present Illness: 04/28/2018: Patient underwent EGD due to odynophagia. This demonstrated significant esophagitis in the distal esophagus measuring 1-2 cm in length. Biopsy was obtained. Duodenum and stomach appeared normal. Pathology demonstrated focal changes suggestive of reflux. 12/15/2018: Patient presented to with a left-sided lump involving his neck which was firm and nontender. This lesion was present for about 3-4 weeks. 12/17/2018: CT neck and chest was completed. There are a few small scattered pulmonary nodules present with the largest in the right upper lobe anterior segment measuring 5 mm with solid features and smooth margins. Recommended to have follow-up low-dose chest CT in 1 year for pulmonary nodule surveillance. There is a rim-enhancing centrally cystic mass distal to the angle of the mandible lateral to the hyoid cartilage along the anterior margin of the sternocleidomastoid muscle with wall thickness up to 4.9 mm. Process measures approximately 1.8 cm craniocaudal and 2 1.8 cm transverse and 2.9 cm AP. Posteriorly and deep to the SCM there is a 1.2 x 1.6 cm mildly enlarged lymph node and a few additional shotty lymph nodes present on the left. No evidence of cervical adenopathy on the right. Pharyngeal and laryngeal soft tissues appear normal. 12/22/2018: Ultrasound-guided FNA of the left neck mass was completed and pathology demonstrated malignant cells consistent with keratinizing squamous cell carcinoma with extensive necrosis, p16 negative. 12/31/2018: Evaluation by medical oncology. Recommended ENT evaluation with panendoscopy and PET/CT for staging. 01/02/2019: Patient was evaluated by ENT. On exam he was noted to have a large fixed left cervical radha conglomerate. Also noted was a 1 cm cystic lesion of the uvula. Otherwise oral and oropharyngeal mucosa were normal. Flexible laryngoscopy was performed which demonstrated no evidence of lesion. Small cystic lesion of the uvula was felt to be benign. 01/05/2019: PET scan was performed which demonstrated 2 separate nodular foci of increased glucose metabolism manifest in the left lateral neck level 3 generating a calculated maximum SUV of 8.6 with the larger soft tissue density demonstrating central photopenia in the largest corresponding lesion measured on CT is 2.8 cm x 3.5 cm. There is asymmetric increased FDG distribution defined in the left pharyngeal mucosal space generating a calculated maximum SUV of 3.4 with a maximum axial diameter of corresponding metabolic abnormality measuring 1.9 cm. There is no evidence of metastatic disease identified. Recommendation is to closely clinically evaluate the left pharyngeal area lesion for primary disease. 01/08/2019: Patient underwent dental extraction of numbers 7 through 13 and #14. 01/13/2019: Patient underwent dental extraction of #6 and 2 through 5, he also completed amalgam fillings of #21 through 22 and 28. Following this procedure he was confirmed to be cleared for radiation therapy. 01/26/2019: Patient underwent placement of PEG tube and port. 01/30/2019: Patient completed left tonsil excision and uvula excision. Pathology displayed no evidence of malignancy or high-grade squamous dysplasia. There was noted to be submucosal dilated minor salivary gland duct with oncocytic metaplasia in the uvula. From 02/10/2019 - 03/25/2019: Received 6996 cGy delivered to gross disease involving the left neck, 5940 cGy to the high risk mucosal sites (entire oropharynx) and high risk lymph node sites (left levels 2-5), and 5412 cGy delivered to the low risk mucosal sites (nasopharynx, larynx, hypopharynx) bilateral high level 2, bilateral supraclavicular fossa, and right neck levels 2-5). Treatment was completed using dose painting IMRT and a single VMAT plan and he received concurrent chemotherapy with high dose cisplatin (cycle 1: 02/10, cycle 2: 03/02, cycle 3: 03/23). 05/13/2019: CT chest was performed. In comparison to the study in November 2018 there is persistent multifocal nodular pleural thickening or tiny pleural-based nodules in the lower lobes which are unchanged in size or number since the previous study. This measures 4 mm. 06/26/2019: Patient underwent swallow study and then had discussion with speech therapy. Recommendations are for a mechanical soft textured and thin liquid diet. Exercises and other strategies were recommended and speech therapy will continue to follow-up. 06/29/2019: PET scan was performed which demonstrated no definitive quantitative scintigraphic evidence of recurrent/metastatic viable neoplasm, overall when compared to the prior PET scan dated 01/05/2019 there is currently an absence of defined viable neoplastic disease with interval resolution of the primary defined hypermetabolic foci. 07/16/2019: Follow up with medical oncology. Plan for surveillance CT chest in 3 months to reassess nonspecific lung nodules. 12/31/2019: Follow up with ENT. NPL showed no evidence of disease, epiglottic and arytenoid edema present. 03/30/2020: swallow study was performed. Recommendations are for regular/soft textured and thin liquid diet. 04/06/2020: CT chest was performed and demonstrated bilateral pulmonary nodules which are stable since the prior exam. No other evidence of disease is identified. 09/02/2020: CT chest with contrast was performed which demonstrated severe emphysema. Multiple lung nodules are stable and appear low risk. Recommend follow-up in 1 year. 01/25/2021: Patient had removal of the remaining teeth lower teeth 21???28. Patient was treated with antibiotics for slowly healing fibrotic tissue. Patient is also being treated with Trental/vitamin E. 02/27/2021: CT chest was completed. This demonstrated stable findings including small scattered noncalcified nodules seen in both lungs. Radiation Treatment History: 1) From 02/10/2019 - 03/25/2019: Received 6996 cGy delivered to gross disease involving the left neck, 5940 cGy to the high risk mucosal sites (entire oropharynx) and high risk lymph node sites (left levels 2-5), and 5412 cGy delivered to the low risk mucosal sites (nasopharynx, larynx, hypopharynx) bilateral high level 2, bilateral supraclavicular fossa, and right neck levels 2-5). Treatment was completed using dose painting IMRT and a single VMAT plan and he received concurrent chemotherapy with high dose cisplatin (cycle 1: 02/10, cycle 2: 03/02, cycle 3: 03/23). Interval History: Patient presents for follow-up about 24 months after completing definitive chemoradiation. Since his last visit he has undergone dental extractions of the remaining lower teeth and for the last several weeks has had slow healing in this area. He has been treated with antibiotics and is also being treated with Trental/vitamin E. He denies pain in his diet has remained the same. He denies having any pain with swallowing, he also denies coughing or choking with swallowing. He can eat all foods. He does have dry mouth and has to drink a lot of fluids while he is eating. He does use Biotene spray for occasional relief but mostly just uses water. He believes his taste is completely normal. He continues to do neck and swallowing exercises. He continues to have fibrosis involving the left greater than right neck but does report having a regular neck range of motion without lymphedema. He denies having hand weakness/numbness. He does have difficulty with hearing bilaterally at baseline and he believes this is stable. He is eating well without unexpected weight loss. He denies worsening hoarseness, headache, otalgia, vision changes, hearing loss, cough, shortness of breath, hemoptysis, focal arm weakness/numbness. He denies headaches, bone pain, or excess fatigue. He completes all activities of daily living without much difficulty. He denies other problems or concerns at this time. Review of Systems: A 12-point review of systems was completed and was negative except for what is noted in the HPI/Interval History and by the nurse. Physical Exam: Weight: 122 lbs (weight at end of [employer] 03/25/2019: 126.6 lbs) ECO KARNOFSKY SCORE: 80% CONSTITUTIONAL: Well-developed, well-nourished, and in no apparent distress. HEENT: Mucous membranes moist. Evidence of left tonsillectomy extending to the soft palate and including the uvula area appears to be healing well. No erythema or mucositis. No trismus. Now edentulous. In the anterior lower jaw there is fibrous tissue at the site of previous extractions, one site shows poor healing with a deeper wound, no obvious exposed bone is identified. BOT without firmness or asymmetry. No evidence of recurrence involving the oropharynx including soft palate and bilateral tonsillar fossa. Pupils are equal, round, and reactive to light and accommodation. Extraocular movements are intact. Sclerae are anicteric. NECK: Supple,with no thyromegaly, and non-tender. Trachea midline. The previously noted left neck adenopathy remains flattened and resolved. No erythema, left neck hypopigmentation present. Neck range of motion is intact but does have left greater than right neck fibrosis. There are no palpable lymph nodes in the neck or supraclavicular region. No lymphedema. CARDIAC: Regular rate and rhythm. Normal S1, S2. No murmurs, rubs, or gallops. PULMONARY/CHEST: Lungs are clear to auscultation and percussion bilaterally. No wheezes, rhonchi, or crackles noted. No increased work of breathing. ABDOMINAL: Abdomen soft, non-tender, non-distended. No hepatomegaly. Normoactive bowel sounds in all four quadrants. No guarding, rebound. BACK: Straight and aligned. No CVA tenderness. Axial skeleton non-tender to percussion. EXTREMITIES: Full range of motion in all four extremities, with normal strength equally and symmetrically. No evidence of edema. No clubbing. NEUROLOGICAL EXAM: Alert and oriented x 3. Cranial nerves II through XII are grossly intact. No focal neurological deficit. Speech is fluent. There is no upper or lower extremity sensory deficit or motor deficit. Muscle strength is 5/5 in all muscle groups. Gait and posture are steady. PSYCHIATRIC: Appropriate mood and affect for the clinical situation. 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 From 02/10/2019 - 03/25/2019 he received definitive chemoradiation therapy consisting of 6996 cGy in 33 fractions with concurrent high dose cisplatin. Patient returns about 24 months after completing definitive chemoradiation. He has completed dental extractions since his last visit and has had slow healing since then. On exam there is fibrous tissue in the anterior lower jaw and reduced healing involving 1 tooth extraction but no obvious evidence of exposed bone. There is also no evidence of infection and there is no pain. Eating has remained normal. I recommend that he continue Trental and vitamin E E and believe that this tissue will slowly heal. This area received a very low dose of radiation but it is possible that blood supply has been impacted. I reviewed with the dentist and they are in agreement and we will plan to watch him closely. He continues to have persistent dry mouth and mild persistent skin pigmentation changes as well as neck fibrosis. I reviewed the recommended care for these toxicities and likely timing for resolution. No evidence of disease on exam. He will also continue to follow-up with [facility] as indicated but is swallowing well. He has not seen his ENT since last December and we have made him an appointment in the near future for continued follow-up, also recommended audiology exam given his poor hearing to consider intervention. Follow-up chest CT in February demonstrated stability of previously noted lung nodules and any further imaging will be done through medical oncology. I do not recommend further imaging for the head neck area at this time. I did discuss it is necessary to have close follow-up with myself and ENT for exams. I recommended he return to see me in 6 months. He was in agreement with my recommendations and he was instructed to call with any further questions or concerns in the interim. Thank you for allowing me to participate in the management and care of your patient. If I may answer any questions in the interim, please do not hesitate to contact me at any time. Santiago Sellers DO, MS Environmental Services Floor Tech, Department of Radiation Oncology [facility] Coding Level of Care Code Off vis,est,level 3 Diagnoses History of head and neck cancer Z85.89 03/20/21 1202 <Electronically signed by Santiago Sellers DO> Date Santiago Sellers DO Cosigner Signature: Date (if applicable) CC: BOOTH CLEANER-C Kya Gonzalez; Dr. Renny Burgos MD; MD Kya Zaman FISH CLEANER Work Phone: Start: 03-08-2021 End: 03-08-2021 Oncology Visit Report Comments: See Note; NOTES: [facility] [address] [address] OFFICE VISIT Date of Service: 03/08/21 0950 MR#: [id number] Acct: [id number] Name: MY JAMA Rep #: [id number] : 1960 From: Quincy Simpson MD Age/Sex: 60/M Location: [facility] [place] Status: Signed HPI Subjective Date of Service Date of Service:: 03/08/21 Chief Complaint Chief Complaint: squamous cell cancer of the head and neck follow-up History of Present Illness History of Present Illness: 59-year-old male Ex-smoker and alcoholic who presented with a painless left neck mass that has progressively increased in size over the course of the past couple of months. December 17, 2018 CT soft tissues of the neck: FINDINGS: There is a rim-enhancing centrally cystic mass distal to the angle the mandible, lateral to the hyoid cartilage, along the anterior margin of the sternocleidomastoid muscle. Wall thickness up to 4.9 mm. Process measures approximately 1.8 cm craniocaudal, 1.8 cm transverse, 2.9 cm anterior-posterior. Posteriorly and deep to the sternomastoid muscle, single mildly enlarged lymph node measuring 1.2 x 1.6 cm. A few additional shotty lymph nodes are present on the left. Normal thyroid. Normal submandibular glands and parotid glands. There is no right cervical lymphadenopathy. Pharyngeal and laryngeal soft tissues appear normal. Multilevel cervical spondylosis with disc disease most notable at C5-C6 with uncovertebral joint hypertrophy contributing to mild foraminal narrowing. Mucoperiosteal thickening and mucous retention cysts of the maxillary sinuses. Solitary opacified posterior right ethmoid sinus. Mastoid air cells and middle ear cavities clear. 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 December 17, 2018 CT chest: FINDINGS: Supraclavicular: No acute process within the [id number]. Body wall soft tissues: No acute process. Upper abdomen: No acute process. Osseous structures: No acute process. Mild scoliosis, moderate kyphosis, mild multilevel thoracic spondylosis. Mediastinum: No acute process. Cardiovascular: No acute process. Lungs: A few small scattered pulmonary nodules are present. The largest is in the right upper lobe anterior segment, series 6 image 73, 5 cm, solid features, smooth margins. Unremarkable airways. IMPRESSION: No acute thoracic process is evident. Small pulmonary nodules. The largest measures approximately 5 mm. Follow-up low-dose CT chest is recommended in 1 year for pulmonary nodule surveillance purposes. December 22, 2018 DIAGNOSIS CYTOLOGY A. 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 See comment. B. 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 ANTIBODY / CLONE RESULT Block A AE1-3 (AE1/AE3/PCK26) positive CK7 (OV-TL12/30) negative CK8 (90rmmcF18) positive, weak CK20 (KS20.8) negative TTF-1 (8G7G3/1) negative Napsin A (Rabbit Polyclonal) negative HepPar (OCh1E5) negative RCC (PN-15) negative PSAP (PASE/4LJ) negative CK5-6 (D5 1684) positive P16 (E6H4) negative P40 (BC28) positive, focal January 02, 2019: Patient was evaluated by ENT : oral and oropharyngeal mucosa were normal. Flexible laryngoscopy was performed which demonstrated no evidence of lesion. Small cystic lesion of the uvula was felt to be benign. January 05, 2019 PET/CT: IMPRESSION: 1. ABNORMAL EXAMINATION INDICATIVE OF MALIGNANT-VIABLE NEOPLASM. 2. Increased glucose concentration observed in the left lateral neck fulfills quantitative criteria for viable neoplasm. 3. Asymmetric enhanced FDG distribution noted in the left pharyngeal mucosal space may be further investigated with rigorous clinical examination. 4. No other quantitatively significant hypermetabolic abnormalities are noted. There is no definitive scintigraphic evidence of distant metastatic disease. January 30, 2019: left tonsil excision and uvula excision. Pathology displayed no evidence of malignancy or high-grade squamous dysplasia. There was noted to be submucosal dilated minor salivary gland duct with oncocytic metaplasia in the uvula. In preparation for locoregional combined chemoradiation patient Patient underwent multiple dental extractions, placement of PEG tube and port. February 10 through March 25, 2019 combined modality therapy (see below for details) May 13, 2019: CT chest: Comparison is made with prior study in December 17, 2018 There is persistent multifocal nodular pleural thickening or tiny pleural-based nodules in the lower lobes which are unchanged in size or number since previous study. The dominant nodule in the right lower lobe is not changed appreciably in size since prior exam June 29, 2019 PET/CT: IMPRESSION: 1. NEGATIVE EXAMINATION. There is no definitive quantitative scintigraphic evidence of recurrent-metastatic viable neoplasm. 2. There is interval metabolic resolution of the previously identified left lateral neck and left pharyngeal mucosal space hypermetabolic abnormalities. 3. Overall, compared to the prior FDG PET study dated 01/05/19, there is current absence of defined viable neoplastic disease with interval resolution of the prior defined hypermetabolic foci, as articulated above. October 07, 2019 CT chest: IMPRESSION: Normal enhanced CT Chest examination. April 06, 2020 CT chest: IMPRESSION: 1. Bilateral pulmonary nodules, stable in the interval. Appropriate follow-up using Fleischner Society criteria is recommended. 2. Dilatation of the main pulmonary artery measuring up to 3.2 cm in diameter. This may be associated with pulmonary hypertension. 3. Increased thoracic kyphosis. Diffuse endplate spondylosis of the visualized cervical, thoracic, and lumbar spine. No lytic or blastic osseous changes are seen. September 02, 2020 CT chest: FINDINGS: Lungs are severely emphysematous with multiple scattered stable nodules. There is a new small, 3 mm nodule in the anterior segment of the right upper lobe, image 36/136 series #4. Remainder of the nodules are stable since priors and are all less than 5 mm and low risk appearing. Additional 1 -- 2 mm nodules are present and are too small to reliably characterize between the current and prior scan due to differences in technique, inspiration, etc. Central airways are patent. Pleural surfaces are intact. Mediastinal contents are normal. Cardiac chambers are normal in size and shape. Pericardium is normal. Osseous structures are intact with exaggerated lower thoracic kyphosis without osseous lesions. Upper abdominal structures are normal. IMPRESSION: 1. Severe emphysema. 2. Multiple low risk and stable over many nodules. CT chest February 27, 2021 IMPRESSION: Stable examination. Stable emphysematous changes. Treatment summary: Combined high-dose cisplatin and radiation January through March 2019: 6996 cGy delivered to gross disease involving the left neck, 5940 cGy to the high risk mucosal sites (entire oropharynx) and high risk lymph node sites (left levels 2-5), and 5412 cGy delivered to the low risk mucosal sites (nasopharynx, larynx, hypopharynx) bilateral high level 2, bilateral supraclavicular fossa, and right neck levels 2-5). The patient did receive concurrent chemotherapy with high dose cisplatin (cycle 1: 02/10, cycle 2: 03/02, cycle 3: 03/23). Date of First Treatment: 02/10/2019 Date of Last Treatment: 03/25/2019 [facility] Medical History (Updated 03/08/21 @ 10:[address] Quincy Simpson MD) Acid reflux Anemia Cancer related pain Difficulty swallowing Epigastric pain Hypertension malignant squamous cell carcinoma lt neck Mass of left side of neck peg tube removed Surgical History history of biopsy neck History of removal of Port-a-Cath S/P percutaneous endoscopic gastrostomy (PEG) tube placement ( 01/26/19) s/p port placement ( 01/26/19) Family History Mother CVA (cerebral vascular accident) Social History (Updated 03/08/21 @ 10:02 by Angélica Hastings) Smoking Status: Former smoker Tobacco: How many years used: 30 second hand exposure: Yes alcohol intake: current alcohol intake frequency: a few times a week substance use type: does not use seatbelt use: sometimes do you feel safe at home: Yes ROS Constitutional Constitutional: Reports systems reviewed and no addt'l complaints, except as documented; Denies anorexia, fatigue, fever(s) or weight loss Eyes Eyes: Reports systems reviewed and no addt'l complaints, except as documented; Denies change in vision ENT HEENT: Reports systems reviewed and no addt'l complaints, except as documented, dry mouth, hearing loss and hoarseness; Denies mouth lesions Cardiovascular Cardiovascular: Reports systems reviewed and no addt'l complaints, except as documented; Denies chest pain with activity or edema Respiratory/Chest Respiratory/Chest: Reports systems reviewed and no addt'l complaints, except as documented; Denies cough or dyspnea on exertion Gastrointestinal Gastrointestinal: Reports systems reviewed and no addt'l complaints, except as documented; Denies change in bowel habits, hematochezia or melena Genitourinary Genitourinary: Reports systems reviewed and no addt'l complaints, except as documented; Denies hematuria Musculoskeletal Musculoskeletal: Reports systems reviewed and no addt'l complaints, except as documented and other; Denies arthralgias Integumentary Integumentary: Reports systems reviewed and no addt'l complaints, except as documented; Denies rash Neurologic Neurologic: Reports systems reviewed and no addt'l complaints, except as documented; Denies headache(s) Psychiatric Psychiatric: Reports systems reviewed and no addt'l complaints, except as documented Endocrine Endocrinology: Reports systems reviewed and no addt'l complaints, except as documented Hematologic/Lymphatic Hematologic/Lymphatic: Reports systems reviewed and no addt'l complaints, except as documented; Denies easy bleeding, easy bruising or lymphadenopathy Allergic/Immunologic Allergic/Immunologic: Reports systems reviewed and no addt'l complaints, except as documented Intake Vital Signs 03/08/21 09:52 Height 5 ft 6 in Weight: 56.472 kg BMI 20.0 BP 120/70 Blood Pressure Location Lt brachial Position Sitting Respiration 16 Pulse 74 Pulse Source Monitor Temp 97.8 F Temperature Source Temporal Artery Pulse Oximetry (%) 100 Oxygen Delivery Method room air Intake Metal Hanging Helper Required: No Accompanied by: Self Is patient in pain?: No Allergies No Known Allergies Allergy (Verified 03/08/21 09:58) Medications Levothyroxine PO 08/25/20 [History Confirmed 03/08/21] Central Venous Access Central Venous Access: No Exam Physical Exam Narrative ECOG 0-1 Const alert, oriented x3 and no apparent distress General Appearance: cooperative and comfortable HEENT normocephalic Head and Scalp: normal to inspection Face and Sinus: normal facial exam Mouth: oral and palatal mucosa normal Eyes Conjunctiva: conjunctiva normal Sclera: sclera normal Neck no lymphadenopathy and no JVD Neck Narrative: Postradiation skin induration Lymph Lymphatic: no lymphadenopathy noted Chest Chest: symmetrical chest wall rise Resp Auscultation: diminished lung sounds bilateral and diffuse Cardio regular rate and regular rhythm Jugular Venous Distention: Negative for JVD GI soft to palpation, non-tender and non-distended; Negative for hepatosplenomegaly no CVA tenderness Back/Spine no thoracic nor lumbar tenderness Extremity no clubbing, cyanosis or edema Skin no rashes or lesions noted Neuro oriented x3, CN's II-XII intact bilaterally, moves all extremities and no focal motor deficits Coordination / Balance: [id number] test normal Speech: speech normal Gait (Neuro): normal gait Psych mental status grossly normal, thought process normal, cooperative and affect normal Coding Level of Care Code Off vis,est,level 4 Diagnoses Regional lymph node metastasis present C77.9 Head and neck cancer C76.0 Lung nodules R91.8 Assessment and Plan Assessment and Plan (1) 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 Patient is status post tonsillectomies and uveal excision yet no primary identified. Received concomitant chemoradiation January through March 2019 tolerated with expected but no excessive toxicities. He is in complete remission now and is on surveillance with no evidence to suggest cancer recurrence. Residual posttreatment skin hyperpigmentation and induration in the neck area and dry mouth. Indeterminate too small to further characterize lung nodules on initial staging chest CT of November 2018 remains stable for 2 years on imaging through February 2021. Comorbid conditions: Smoking and excessive alcohol until the time of diagnosis of malignancy. Plan: 1- Continued surveillance for head and neck cancer. 2-concluded 2 years follow-up with CT chest, will refer to the lung cancer annual screening register. 3-continue to follow-up with ENT and Dr. Sellers. Follow-up with myself every 6 months Impression and plan reviewed with patient . Quincy Simpson MD Environmental Services Floor Tech, [facility] Divisions of Medical Oncology Hematology Department of Internal Medicine [place] [phone] This note was generated using a voice recognition system software. Although it was reviewed by the author prior to finalization, it may still contain incorrect words, spelling, and punctuation that were not noted when reviewing prior to saving. If a clinically significant typo or inaccurately typed phrase is noted, please notify the author. 03/08/21 1031 <Electronically signed by Quincy Simpson MD> Date Quincy Simpson MD Cosigner Signature: Date (if applicable) CC: YARI Gonzalez [facility] Work Phone: Start: 02-27-2021 End: 02-27-2021 Chest WITH Contrast Comments: See Note; NOTES: [facility] Imaging Services [address] [place] [address] Chest WITH Contrast MR#: [id number] Acct: [id number] Name: MY JAMA Rep #: [id number] : 1960 M 60 From: Bib ghosh MD PCP: Kya Gonzalez BOOTH CLEANER-C Status: REG CLI Study: Chest WITH Contrast Date of Exam: 02/27/21 Exam# [id number] Ordering Dr: Quincy Simpson MD STUDY: CT CHEST WITH CONTRAST REASON FOR EXAM: Male, 60 years old. F/U LUNG NODULES . History of H/O HEAD NECK CANCER RADIATION DOSAGE (If Supplied By Facility): CTDIvol = ( 9.43 ) mGy, DLP = ( 212.16 ) mGycm TECHNIQUE: Transaxial imaging was performed following intravenous administration of IV 100mL Isovue-370. Multiplanar coronal and sagittal images were reformatted. Individualized dose optimization techniques were used for this CT. COMPARISON: Comparison is made with prior examination dated 09/02/2020. FINDINGS: Hyperinflation. Findings include with emphysema more prominent in the upper lobes. Stable small scattered noncalcified nodules seen in both lungs. There is no demonstrated pleural abnormality. Normal heart and pericardium. Normal mediastinum. Normal hilar regions. Normal enhanced pulmonary arteries. Normal aorta arch and descending thoracic aorta. There are multi-level degenerative changes of the thoracic spine. There is no demonstrated abnormality of the visualized upper abdomen. CT/Chest WITH Contrast IMPRESSION: Stable examination. Stable emphysematous changes. Electronically Signed: Bib Reeves MD at 14:35 EDT , Service support , CC: YARI Gonzalez; Dr. Quincy Simpson MD Wood Router Hand: Signed Kya Gonzalez FISH CLEANER Work Phone: Start: 11-28-2020 End: 11-28-2020 Oncology Visit Report Comments: See Note; NOTES: [facility] [address] [place] [address] OFFICE VISIT Date of Service: 11/28/20 1544 MR#: [id number] Acct: [id number] Name: MY JAMA Rep #: [id number] : 1960 From: Quincy Simpson MD Age/Sex: 60/M Location: [facility] Status: Signed - Problem List (1) Head and neck cancer Status: Chronic (2) Regional lymph node metastasis present Status: Chronic (3) Lung nodules Status: Chronic - Date of Service Date of Service:: 11/28/20 - Chief Complaint squamous cell cancer of the head and neck follow-up - History of Present Illness 59-year-old male Ex-smoker and alcoholic who presented with a painless left neck mass that has progressively increased in size over the course of the past couple of months. December 17, 2018 CT soft tissues of the neck: FINDINGS: There is a rim-enhancing centrally cystic mass distal to the angle the mandible, lateral to the hyoid cartilage, along the anterior margin of the sternocleidomastoid muscle. Wall thickness up to 4.9 mm. Process measures approximately 1.8 cm craniocaudal, 1.8 cm transverse, 2.9 cm anterior-posterior. Posteriorly and deep to the sternomastoid muscle, single mildly enlarged lymph node measuring 1.2 x 1.6 cm. A few additional shotty lymph nodes are present on the left. Normal thyroid. Normal submandibular glands and parotid glands. There is no right cervical lymphadenopathy. Pharyngeal and laryngeal soft tissues appear normal. Multilevel cervical spondylosis with disc disease most notable at C5-C6 with uncovertebral joint hypertrophy contributing to mild foraminal narrowing. Mucoperiosteal thickening and mucous retention cysts of the maxillary sinuses. Solitary opacified posterior right ethmoid sinus. Mastoid air cells and middle ear cavities clear. 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 December 17, 2018 CT chest: FINDINGS: Supraclavicular: No acute process within the [id number]. Body wall soft tissues: No acute process. Upper abdomen: No acute process. Osseous structures: No acute process. Mild scoliosis, moderate kyphosis, mild multilevel thoracic spondylosis. Mediastinum: No acute process. Cardiovascular: No acute process. Lungs: A few small scattered pulmonary nodules are present. The largest is in the right upper lobe anterior segment, series 6 image 73, 5 cm, solid features, smooth margins. Unremarkable airways. IMPRESSION: No acute thoracic process is evident. Small pulmonary nodules. The largest measures approximately 5 mm. Follow-up low-dose CT chest is recommended in 1 year for pulmonary nodule surveillance purposes. December 22, 2018 DIAGNOSIS CYTOLOGY A. 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 See comment. B. 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 ANTIBODY / CLONE RESULT Block A AE1-3 (AE1/AE3/PCK26) positive CK7 (OV-TL12/30) negative CK8 (95hhgeR27) positive, weak CK20 (KS20.8) negative TTF-1 (8G7G3/1) negative Napsin A (Rabbit Polyclonal) negative HepPar (OCh1E5) negative RCC (PN-15) negative PSAP (PASE/4LJ) negative CK5-6 (D5 1684) positive P16 (E6H4) negative P40 (BC28) positive, focal January 02, 2019: Patient was evaluated by ENT : oral and oropharyngeal mucosa were normal. Flexible laryngoscopy was performed which demonstrated no evidence of lesion. Small cystic lesion of the uvula was felt to be benign. January 05, 2019 PET/CT: IMPRESSION: 1. ABNORMAL EXAMINATION INDICATIVE OF MALIGNANT-VIABLE NEOPLASM. 2. Increased glucose concentration observed in the left lateral neck fulfills quantitative criteria for viable neoplasm. 3. Asymmetric enhanced FDG distribution noted in the left pharyngeal mucosal space may be further investigated with rigorous clinical examination. 4. No other quantitatively significant hypermetabolic abnormalities are noted. There is no definitive scintigraphic evidence of distant metastatic disease. January 30, 2019: left tonsil excision and uvula excision. Pathology displayed no evidence of malignancy or high-grade squamous dysplasia. There was noted to be submucosal dilated minor salivary gland duct with oncocytic metaplasia in the uvula. In preparation for locoregional combined chemoradiation patient Patient underwent multiple dental extractions, placement of PEG tube and port. February 10 through March 25, 2019 combined modality therapy (see below for details) May 13, 2019: CT chest: Comparison is made with prior study in December 17, 2018 There is persistent multifocal nodular pleural thickening or tiny pleural-based nodules in the lower lobes which are unchanged in size or number since previous study. The dominant nodule in the right lower lobe is not changed appreciably in size since prior exam June 29, 2019 PET/CT: IMPRESSION: 1. NEGATIVE EXAMINATION. There is no definitive quantitative scintigraphic evidence of recurrent-metastatic viable neoplasm. 2. There is interval metabolic resolution of the previously identified left lateral neck and left pharyngeal mucosal space hypermetabolic abnormalities. 3. Overall, compared to the prior FDG PET study dated 01/05/19, there is current absence of defined viable neoplastic disease with interval resolution of the prior defined hypermetabolic foci, as articulated above. October 07, 2019 CT chest: IMPRESSION: Normal enhanced CT Chest examination. April 06, 2020 CT chest: IMPRESSION: 1. Bilateral pulmonary nodules, stable in the interval. Appropriate follow-up using Fleischner Society criteria is recommended. 2. Dilatation of the main pulmonary artery measuring up to 3.2 cm in diameter. This may be associated with pulmonary hypertension. 3. Increased thoracic kyphosis. Diffuse endplate spondylosis of the visualized cervical, thoracic, and lumbar spine. No lytic or blastic osseous changes are seen. September 02, 2020 CT chest: FINDINGS: Lungs are severely emphysematous with multiple scattered stable nodules. There is a new small, 3 mm nodule in the anterior segment of the right upper lobe, image 36/136 series #4. Remainder of the nodules are stable since priors and are all less than 5 mm and low risk appearing. Additional 1 -- 2 mm nodules are present and are too small to reliably characterize between the current and prior scan due to differences in technique, inspiration, etc. Central airways are patent. Pleural surfaces are intact. Mediastinal contents are normal. Cardiac chambers are normal in size and shape. Pericardium is normal. Osseous structures are intact with exaggerated lower thoracic kyphosis without osseous lesions. Upper abdominal structures are normal. IMPRESSION: 1. Severe emphysema. 2. Multiple low risk and stable over many nodules. Treatment summary: Combined high-dose cisplatin and radiation January through March 2019: 6996 cGy delivered to gross disease involving the left neck, 5940 cGy to the high risk mucosal sites (entire oropharynx) and high risk lymph node sites (left levels 2-5), and 5412 cGy delivered to the low risk mucosal sites (nasopharynx, larynx, hypopharynx) bilateral high level 2, bilateral supraclavicular fossa, and right neck levels 2-5). The patient did receive concurrent chemotherapy with high dose cisplatin (cycle 1: 02/10, cycle 2: 03/02, cycle 3: 03/23). Date of First Treatment: 02/10/2019 Date of Last Treatment: 03/25/2019 - Past Medical/Social History Past Medical History Cancer: Other Other Cancer History: carcinoma of unknown primary Social History Social History: No changes Smoking Status Former smoker Review of Systems Constitutional:: Reports: - - Able to do ADL and work without restrictions. Denies: Fever, Sweats, Weight loss, Appetite change, Chills Cardiovascular:: Reports: Dyspnea on exertion. Denies: Chest pain, Palpitations, Orthopnea, PND, Shortness of breath Respiratory: Reports: Cough - Chronic, Shortness of breath upon exertion. Denies: Hemoptysis, Shortness of Breath, Wheezing Gastrointestinal:: Reports: - - Dry mouth, uses sips of water to help swallow. Denies: Abdominal pain, Nausea, Vomiting, Diarrhea, Constipation, Hematochezia Genitourinary: Denies: Dysuria, Hematuria, 15, Flank pain Musculoskeletal:: Reports: - - Fell on ice, soft tissue injury right hand swelling, improving. Denies: Back pain, Myalgia, Arthralgia Skin: Denies: Rash, Skin Changes, Wounds Neurological:: Denies: Headache, Dizziness, Visual changes, Tinnitus, Hearing loss Psychiatric: Denies: Anxiety, Depression, Homicidal Ideations, Suicidal Ideations Vital Signs Temperature 98.6 F 11/28/20 15:34 Temperature Source Temporal 11/28/20 15:34 Pulse Rate 76 11/28/20 15:34 Respiratory Rate 16 11/28/20 15:34 Blood Pressure 149/84 H 11/28/20 15:34 Blood Pressure Mean 105 11/28/20 15:34 Blood Pressure Source Monitor 11/28/20 15:34 Blood Pressure Position Sitting 11/28/20 15:34 Blood Pressure Location Left Arm 11/28/20 15:34 Pulse Ox 99 11/28/20 15:34 Oxygen Delivery Method Room Air 11/28/20 15:34 CLA-BSI maintained Yes 09/09/19 14:21 - Physical Exam General: Alert, Oriented x3, No apparent distress, - - ECOG 1 HEENT: Atraumatic, PERRLA, EOMI, Normocephalic Oropharynx:: Dry mucosa Neck:: Supple, Trachea midline. Negative for: JVD, bilateral Cardiac:: Regular rate, Regular rhythm, Normal S1, Normal S2. Negative for: Murmur Lungs: Clear to auscultation, Diminished - On both lungs, Excusion symmetrical. Negative for: Rhonchi, Wheezes Abdomen:: Soft, Non-tender, Non-distended Extremities:: - - Right hand, soft tissue swelling, no deformity no bruising (recently fell on ice). Negative for: Cyanosis, Edema Neurological: Neuro grossly intact Skin:: - - Neck postradiation skin pigmentation and induration. 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 Patient is status post tonsillectomies and uveal excision yet no primary identified. Received concomitant chemoradiation January through March 2019 tolerated with expected but no excessive toxicities. He is in complete remission now and is on surveillance with no evidence to suggest cancer recurrence. Residual posttreatment skin hyperpigmentation and induration in the neck area and dry mouth. Indeterminate too small to further characterize lung nodules on initial staging chest CT of November 2018 remains stable on imaging through August 2020. Comorbid conditions: Smoking and excessive alcohol until the time of diagnosis of malignancy. Plan: 1- Continued surveillance for head and neck cancer. 2-elective imaging February 2021 (6 months interval): To conclude 2 years of close follow-up then annual thereafter 3-continue to follow-up with ENT and Dr. Sellers. Impression and plan reviewed with patient . Quincy Simpson MD Environmental Services Floor Tech, [facility] Divisions of Medical Oncology Hematology Department of Internal Medicine [address] [address] This note was generated using a voice recognition system software. Although it was reviewed by the author prior to finalization, it may still contain incorrect words, spelling, and punctuation that were not noted when reviewing prior to saving. If a clinically significant typo or inaccurately typed phrase is noted, please notify the author. Medications: Prescriptions This Visit Medication Instructions Recorded Levothyroxine PO 08/25/20 Primary Care Provider: Kya Gonzalez NP Referring Provider: 11/28/20 1559 <Electronically signed by Quincy Simpson MD> Date Quincy Simpson MD Cosigner Signature: Date (if applicable) CC: BOOTH CLEANER-C Kya Gonzalez Start: 10-31-2020 End: 10-31-2020 Oncology Follow-Up Visit Comments: See Note; NOTES: [facility] Medical Records Department [address] [place] [address] Oncology Follow-Up Visit 10/31/20 1611 MR#: [id number] Acct: [id number] Name: MY JAMA Rep #: [id number] : 1960 60 From: Santiago Sellers DO PCP: YARI Pardo Status:REG RCR Y Location: [facility] Date of Service: 10/31/20 Last Clinic Visit: 04/12/20 Diagnosis: My Jama is a 60-year-old male diagnosed with 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 From 02/10/2019 - 03/25/2019 he received definitive chemoradiation therapy consisting of 6996 cGy in 33 fractions with concurrent high dose cisplatin. History of Present Illness: 04/28/2018: Patient underwent EGD due to odynophagia. This demonstrated significant esophagitis in the distal esophagus measuring 1-2 cm in length. Biopsy was obtained. Duodenum and stomach appeared normal. Pathology demonstrated focal changes suggestive of reflux. 12/15/2018: Patient presented to with a left-sided lump involving his neck which was firm and nontender. This lesion was present for about 3-4 weeks. 12/17/2018: CT neck and chest was completed. There are a few small scattered pulmonary nodules present with the largest in the right upper lobe anterior segment measuring 5 mm with solid features and smooth margins. Recommended to have follow-up low-dose chest CT in 1 year for pulmonary nodule surveillance. There is a rim-enhancing centrally cystic mass distal to the angle of the mandible lateral to the hyoid cartilage along the anterior margin of the sternocleidomastoid muscle with wall thickness up to 4.9 mm. Process measures approximately 1.8 cm craniocaudal and 2 1.8 cm transverse and 2.9 cm AP. Posteriorly and deep to the SCM there is a 1.2 x 1.6 cm mildly enlarged lymph node and a few additional shotty lymph nodes present on the left. No evidence of cervical adenopathy on the right. Pharyngeal and laryngeal soft tissues appear normal. 12/22/2018: Ultrasound-guided FNA of the left neck mass was completed and pathology demonstrated malignant cells consistent with keratinizing squamous cell carcinoma with extensive necrosis, p16 negative. 12/31/2018: Evaluation by medical oncology. Recommended ENT evaluation with panendoscopy and PET/CT for staging. 01/02/2019: Patient was evaluated by ENT. On exam he was noted to have a large fixed left cervical radha conglomerate. Also noted was a 1 cm cystic lesion of the uvula. Otherwise oral and oropharyngeal mucosa were normal. Flexible laryngoscopy was performed which demonstrated no evidence of lesion. Small cystic lesion of the uvula was felt to be benign. 01/05/2019: PET scan was performed which demonstrated 2 separate nodular foci of increased glucose metabolism manifest in the left lateral neck level 3 generating a calculated maximum SUV of 8.6 with the larger soft tissue density demonstrating central photopenia in the largest corresponding lesion measured on CT is 2.8 cm x 3.5 cm. There is asymmetric increased FDG distribution defined in the left pharyngeal mucosal space generating a calculated maximum SUV of 3.4 with a maximum axial diameter of corresponding metabolic abnormality measuring 1.9 cm. There is no evidence of metastatic disease identified. Recommendation is to closely clinically evaluate the left pharyngeal area lesion for primary disease. 01/08/2019: Patient underwent dental extraction of numbers 7 through 13 and #14. 01/13/2019: Patient underwent dental extraction of #6 and 2 through 5, he also completed amalgam fillings of #21 through 22 and 28. Following this procedure he was confirmed to be cleared for radiation therapy. 01/26/2019: Patient underwent placement of PEG tube and port. 01/30/2019: Patient completed left tonsil excision and uvula excision. Pathology displayed no evidence of malignancy or high-grade squamous dysplasia. There was noted to be submucosal dilated minor salivary gland duct with oncocytic metaplasia in the uvula. From 02/10/2019 - 03/25/2019: Received 6996 cGy delivered to gross disease involving the left neck, 5940 cGy to the high risk mucosal sites (entire oropharynx) and high risk lymph node sites (left levels 2-5), and 5412 cGy delivered to the low risk mucosal sites (nasopharynx, larynx, hypopharynx) bilateral high level 2, bilateral supraclavicular fossa, and right neck levels 2-5). Treatment was completed using dose painting IMRT and a single VMAT plan and he received concurrent chemotherapy with high dose cisplatin (cycle 1: 02/10, cycle 2: 03/02, cycle 3: 03/23). 05/13/2019: CT chest was performed. In comparison to the study in November 2018 there is persistent multifocal nodular pleural thickening or tiny pleural-based nodules in the lower lobes which are unchanged in size or number since the previous study. This measures 4 mm. 06/26/2019: Patient underwent swallow study and then had discussion with speech therapy. Recommendations are for a mechanical soft textured and thin liquid diet. Exercises and other strategies were recommended and speech therapy will continue to follow-up. 06/29/2019: PET scan was performed which demonstrated no definitive quantitative scintigraphic evidence of recurrent/metastatic viable neoplasm, overall when compared to the prior PET scan dated 01/05/2019 there is currently an absence of defined viable neoplastic disease with interval resolution of the primary defined hypermetabolic foci. 07/16/2019: Follow up with medical oncology. Plan for surveillance CT chest in 3 months to reassess nonspecific lung nodules. 12/31/2019: Follow up with ENT. NPL showed no evidence of disease, epiglottic and arytenoid edema present. 03/30/2020: swallow study was performed. Recommendations are for regular/soft textured and thin liquid diet. 04/06/2020: CT chest was performed and demonstrated bilateral pulmonary nodules which are stable since the prior exam. No other evidence of disease is identified. 09/02/2020: CT chest with contrast was performed which demonstrated severe emphysema. Multiple lung nodules are stable and appear low risk. Recommend follow-up in 1 year. Radiation Treatment History: 1) From 02/10/2019 - 03/25/2019: Received 6996 cGy delivered to gross disease involving the left neck, 5940 cGy to the high risk mucosal sites (entire oropharynx) and high risk lymph node sites (left levels 2-5), and 5412 cGy delivered to the low risk mucosal sites (nasopharynx, larynx, hypopharynx) bilateral high level 2, bilateral supraclavicular fossa, and right neck levels 2-5). Treatment was completed using dose painting IMRT and a single VMAT plan and he received concurrent chemotherapy with high dose cisplatin (cycle 1: 02/10, cycle 2: 03/02, cycle 3: 03/23). Interval History: Patient presents for follow-up about 19 months after completing definitive chemoradiation. Since his last visit he has continued to heal well from previous radiation related toxicities. He denies having any pain with swallowing, he also denies coughing or choking with swallowing. He can eat all foods except struggles some with swallowing bread. He does have dry mouth and has to drink a lot of fluids while he is eating. He does use Biotene spray for occasional relief but mostly just uses water. He believes his taste is completely normal. He continues to do neck and swallowing exercises. He has dentures and denies new dental pain, lower 8 teeth are rotting and he had previously planned to have removed but has not pursued with dentist yet. He continues to have fibrosis involving the left greater than right neck but does report having a regular neck range of motion without lymphedema. He denies having hand weakness/numbness. He does have difficulty with hearing bilaterally at baseline and he believes this is stable. He is eating well without unexpected weight loss. He denies worsening hoarseness, headache, otalgia, vision changes, hearing loss, cough, shortness of breath, hemoptysis, focal arm weakness/numbness. He denies headaches, bone pain, or excess fatigue. He completes all activities of daily living without much difficulty. He denies other problems or concerns at this time. Review of Systems: A 12-point review of systems was completed and was negative except for what is noted in the HPI/Interval History and by the nurse. Height/Weight/BMI: Height: 5 ft 6 in Weight: 128.2 lbs (weight at end of [employer] 03/25/2019: 126.6 lbs) Vital Signs Temperature 99.4 F H 10/31/20 15:42 Temperature Source Temporal 10/31/20 15:42 Pulse Rate 87 10/31/20 15:42 Respiratory Rate 14 10/31/20 15:42 Blood Pressure 157/84 H 10/31/20 15:42 Blood Pressure Mean 108 10/31/20 15:42 Blood Pressure Source Monitor 10/31/20 15:42 Blood Pressure Position Sitting 10/31/20 15:42 Blood Pressure Location Right Arm 10/31/20 15:42 Pulse Ox 99 10/31/20 15:42 Oxygen Delivery Method Room Air 10/31/20 15:42 CLA-BSI maintained Yes 09/09/19 14:21 Physical Exam: ECO KARNOFSKY SCORE: 80% CONSTITUTIONAL: Well-developed, well-nourished, and in no apparent distress. HEENT: Mucous membranes moist. Evidence of left tonsillectomy extending to the soft palate and including the uvula area appears to be healing well. No erythema or mucositis. No trismus. Patient has 8 lower teeth remaining which are in poor health but no obvious infection, remaining teeth were previously removed and gingiva are are well-healed. BOT without firmness or asymmetry. No evidence of recurrence involving the oropharynx including soft palate and bilateral tonsillar fossa. Pupils are equal, round, and reactive to light and accommodation. Extraocular movements are intact. Sclerae are anicteric. NECK: Supple,with no thyromegaly, and non-tender. Trachea midline. The previously noted left neck adenopathy remains flattened and resolved. No erythema, left neck hypopigmentation present. Neck range of motion is intact but does have left greater than right neck fibrosis. There are no palpable lymph nodes in the neck or supraclavicular region. No lymphedema. CARDIAC: Regular rate and rhythm. Normal S1, S2. No murmurs, rubs, or gallops. PULMONARY/CHEST: Lungs are clear to auscultation and percussion bilaterally. No wheezes, rhonchi, or crackles noted. No increased work of breathing. ABDOMINAL: Abdomen soft, non-tender, non-distended. No hepatomegaly. Normoactive bowel sounds in all four quadrants. No guarding, rebound. BACK: Straight and aligned. No CVA tenderness. Axial skeleton non-tender to percussion. EXTREMITIES: Full range of motion in all four extremities, with normal strength equally and symmetrically. No evidence of edema. No clubbing. NEUROLOGICAL EXAM: Alert and oriented x 3. Cranial nerves II through XII are grossly intact. No focal neurological deficit. Speech is fluent. There is no upper or lower extremity sensory deficit or motor deficit. Muscle strength is 5/5 in all muscle groups. Gait and posture are steady. PSYCHIATRIC: Appropriate mood and affect for the clinical situation. 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 From 02/10/2019 - 03/25/2019 he received definitive chemoradiation therapy consisting of 6996 cGy in 33 fractions with concurrent high dose cisplatin. Patient returns about 19 months after completing definitive chemoradiation. He continues to heal well from radiation associated toxicities and has persistent dry mouth and mild persistent skin pigmentation changes as well as neck fibrosis. I reviewed the recommended care for these toxicities and likely timing for resolution. No evidence of disease on exam. He will also continue to follow- up with [facility] as indicated but is swallowing well. He was seen by his dentist greater than 7 months ago and had some plans of removal of some of his lower teeth and fitting for dentures and nothing has been done yet, he was waiting for insurance changes this year and he will see them in the near future. I again recommended that if any dental extractions are planned that the dentist reach out to discuss previous radiation dose and consider hyperbaric oxygen or other preventative means to help prevent radiation necrosis. He has not seen his ENT since last December and we have made him an appointment in the near future for continued follow-up, also recommended audiology exam given his poor hearing to consider intervention. Follow-up chest CT in August demonstrated stability of previously noted lung nodules and he is planning to have continued follow-up with a CT next year. I do not recommend further imaging for the head neck area at this time. I did discuss it is necessary to have close follow-up with myself and ENT for exams. I recommended he return to see me in 6 months. He was in agreement with my recommendations and he was instructed to call with any further questions or concerns in the interim. Santiago Sellers DO, MS Environmental Services Floor Tech, Department of Radiation Oncology [facility] 10/31/20 1622 <Electronically signed by Santiago Sellers DO> Date Santiago Sellers DO CC: Dr. Renny Burgos MD; Dr. Quinyc Simpson MD Signed Kya Riverodanya Start: 09-02-2020 End: 09-02-2020 Chest WITH Contrast Comments: See Note; NOTES: [facility] Imaging Services [address] [place] [address] Chest WITH Contrast MR#: [id number] Acct: [id number] Name: MY JAMA Rep #: [id number] : 1960 M 60 From: Gin Tyler PCP: YARI Pardo Status: REG CLI Study: Chest WITH Contrast Date of Exam: 09/02/20 Exam# [id number] Ordering Dr: Quincy Simpson MD STUDY: CT CHEST WITH CONTRAST REASON FOR EXAM: Male, 60 years old. Lung nodule follow-up, history of head and neck cancer prior chemotherapy and radiation RADIATION DOSAGE (If Supplied By Facility): CTDIvol = ( 8.36 ) mGy, DLP = ( 266.74 ) mGycm TECHNIQUE: Transaxial imaging was performed following intravenous administration of IV 75mL [id number]-300. Individualized dose optimization techniques were used for this CT. COMPARISON: April 06 2020, October 07 2019, June 29 2019 FINDINGS: Lungs are severely emphysematous with multiple scattered stable nodules. There is a new small, 3 mm nodule in the anterior segment of the right upper lobe, image 36/136 series #4. Remainder of the nodules are stable since priors and are all less than 5 mm and low risk appearing. Additional 1 -- 2 mm nodules are present and are too small to reliably characterize between the current and prior scan due to differences in technique, inspiration, etc. Central airways are patent. Pleural surfaces are intact. Mediastinal contents are normal. Cardiac chambers are normal in size and shape. Pericardium is normal. Osseous structures are intact with exaggerated lower thoracic kyphosis without osseous lesions. Upper abdominal structures are normal. CT/Chest WITH Contrast IMPRESSION: 1. Severe emphysema. 2. Multiple low risk and stable over many nodules. Follow-up in one year is advised. Electronically Signed: Gin Fuentes, at 21:42 EST Tel , Service support , CC: BOOTH CLEANERLulu Gonzalez; Dr. Quincy Simpson MD Wood Router Hand: Signed Kya Gonzalez Start: 08-25-2020 End: 08-25-2020 Oncology Visit Report Comments: See Note; NOTES: [facility] [address] [place] [address] OFFICE VISIT Date of Service: 08/25/20 1506 MR#: [id number] Acct: [id number] Name: MY JAMA Rep #: [id number] : 1960 From: Quincy Simpson MD Age/Sex: 60/M Location: [facility] Status: Signed - Problem List (1) Head and neck cancer Status: Chronic (2) Regional lymph node metastasis present Status: Chronic (3) Lung nodules Status: Chronic - Date of Service Date of Service:: 08/25/20 - Chief Complaint Head and neck cancer follow-up - History of Present Illness 59-year-old male Ex-smoker and alcoholic who presented with a painless left neck mass that has progressively increased in size over the course of the past couple of months. December 17, 2018 CT soft tissues of the neck: FINDINGS: There is a rim-enhancing centrally cystic mass distal to the angle the mandible, lateral to the hyoid cartilage, along the anterior margin of the sternocleidomastoid muscle. Wall thickness up to 4.9 mm. Process measures approximately 1.8 cm craniocaudal, 1.8 cm transverse, 2.9 cm anterior-posterior. Posteriorly and deep to the sternomastoid muscle, single mildly enlarged lymph node measuring 1.2 x 1.6 cm. A few additional shotty lymph nodes are present on the left. Normal thyroid. Normal submandibular glands and parotid glands. There is no right cervical lymphadenopathy. Pharyngeal and laryngeal soft tissues appear normal. Multilevel cervical spondylosis with disc disease most notable at C5-C6 with uncovertebral joint hypertrophy contributing to mild foraminal narrowing. Mucoperiosteal thickening and mucous retention cysts of the maxillary sinuses. Solitary opacified posterior right ethmoid sinus. Mastoid air cells and middle ear cavities clear. 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 December 17, 2018 CT chest: FINDINGS: Supraclavicular: No acute process within the [id number]. Body wall soft tissues: No acute process. Upper abdomen: No acute process. Osseous structures: No acute process. Mild scoliosis, moderate kyphosis, mild multilevel thoracic spondylosis. Mediastinum: No acute process. Cardiovascular: No acute process. Lungs: A few small scattered pulmonary nodules are present. The largest is in the right upper lobe anterior segment, series 6 image 73, 5 cm, solid features, smooth margins. Unremarkable airways. IMPRESSION: No acute thoracic process is evident. Small pulmonary nodules. The largest measures approximately 5 mm. Follow-up low-dose CT chest is recommended in 1 year for pulmonary nodule surveillance purposes. December 22, 2018 DIAGNOSIS CYTOLOGY A. 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 See comment. B. 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 ANTIBODY / CLONE RESULT Block A AE1-3 (AE1/AE3/PCK26) positive CK7 (OV-TL12/30) negative CK8 (90jouuV04) positive, weak CK20 (KS20.8) negative TTF-1 (8G7G3/1) negative Napsin A (Rabbit Polyclonal) negative HepPar (OCh1E5) negative RCC (PN-15) negative PSAP (PASE/4LJ) negative CK5-6 (D5 1684) positive P16 (E6H4) negative P40 (BC28) positive, focal January 02, 2019: Patient was evaluated by ENT : oral and oropharyngeal mucosa were normal. Flexible laryngoscopy was performed which demonstrated no evidence of lesion. Small cystic lesion of the uvula was felt to be benign. January 05, 2019 PET/CT: IMPRESSION: 1. ABNORMAL EXAMINATION INDICATIVE OF MALIGNANT-VIABLE NEOPLASM. 2. Increased glucose concentration observed in the left lateral neck fulfills quantitative criteria for viable neoplasm. 3. Asymmetric enhanced FDG distribution noted in the left pharyngeal mucosal space may be further investigated with rigorous clinical examination. 4. No other quantitatively significant hypermetabolic abnormalities are noted. There is no definitive scintigraphic evidence of distant metastatic disease. January 30, 2019: left tonsil excision and uvula excision. Pathology displayed no evidence of malignancy or high-grade squamous dysplasia. There was noted to be submucosal dilated minor salivary gland duct with oncocytic metaplasia in the uvula. In preparation for locoregional combined chemoradiation patient Patient underwent multiple dental extractions, placement of PEG tube and port. February 10 through March 25, 2019 combined modality therapy (see below for details) May 13, 2019: CT chest: Comparison is made with prior study in December 17, 2018 There is persistent multifocal nodular pleural thickening or tiny pleural-based nodules in the lower lobes which are unchanged in size or number since previous study. The dominant nodule in the right lower lobe is not changed appreciably in size since prior exam June 29, 2019 PET/CT: IMPRESSION: 1. NEGATIVE EXAMINATION. There is no definitive quantitative scintigraphic evidence of recurrent-metastatic viable neoplasm. 2. There is interval metabolic resolution of the previously identified left lateral neck and left pharyngeal mucosal space hypermetabolic abnormalities. 3. Overall, compared to the prior FDG PET study dated 01/05/19, there is current absence of defined viable neoplastic disease with interval resolution of the prior defined hypermetabolic foci, as articulated above. October 07, 2019 CT chest: IMPRESSION: Normal enhanced CT Chest examination. April 06, 2020 CT chest: IMPRESSION: 1. Bilateral pulmonary nodules, stable in the interval. Appropriate follow-up using Fleischner Society criteria is recommended. 2. Dilatation of the main pulmonary artery measuring up to 3.2 cm in diameter. This may be associated with pulmonary hypertension. 3. Increased thoracic kyphosis. Diffuse endplate spondylosis of the visualized cervical, thoracic, and lumbar spine. No lytic or blastic osseous changes are seen. Treatment summary: Combined high-dose cisplatin and radiation January through March 2019: 6996 cGy delivered to gross disease involving the left neck, 5940 cGy to the high risk mucosal sites (entire oropharynx) and high risk lymph node sites (left levels 2-5), and 5412 cGy delivered to the low risk mucosal sites (nasopharynx, larynx, hypopharynx) bilateral high level 2, bilateral supraclavicular fossa, and right neck levels 2-5). The patient did receive concurrent chemotherapy with high dose cisplatin (cycle 1: 02/10, cycle 2: 03/02, cycle 3: 03/23). Date of First Treatment: 02/10/2019 Date of Last Treatment: 03/25/2019 - Past Medical/Social History Past Medical History Cancer: Other Other Cancer History: carcinoma of unknown primary Social History Social History: No changes Smoking Status Former smoker Review of Systems Constitutional:: Reports: - - Able to do ADL and work at own pace. Denies: Fever, Sweats, Weight loss, Appetite change, Chills Cardiovascular:: Reports: Dyspnea on exertion. Denies: Chest pain, Palpitations, Orthopnea, PND, Shortness of breath Respiratory: Reports: Shortness of breath upon exertion. Denies: Cough, Hemoptysis, Shortness of Breath, Wheezing Gastrointestinal:: Reports: Dysphagia - Certain food items such as hamburger need help with sips of liquid. Denies: Abdominal pain, Nausea, Vomiting, Diarrhea, Constipation, Hematochezia Genitourinary: Denies: Dysuria, Hematuria, 15, Flank pain Musculoskeletal:: Denies: Back pain, Myalgia, Arthralgia Skin: Denies: Rash, Skin Changes, Wounds Neurological:: Denies: Headache, Dizziness, Visual changes, Tinnitus, Hearing loss Psychiatric: Denies: Anxiety, Depression, Homicidal Ideations, Suicidal Ideations Vital Signs Temperature 97.8 F 08/25/20 14:44 Temperature Source Temporal 08/25/20 14:44 Pulse Rate 74 08/25/20 14:44 Respiratory Rate 16 08/25/20 14:44 Blood Pressure 163/79 H 08/25/20 14:44 Blood Pressure Mean 107 08/25/20 14:44 Blood Pressure Source Monitor 08/25/20 14:44 Blood Pressure Position Sitting 08/25/20 14:44 Blood Pressure Location Left Arm 08/25/20 14:44 Pulse Ox 99 08/25/20 14:44 Oxygen Delivery Method Room Air 08/25/20 14:44 CLA-BSI maintained Yes 09/09/19 14:21 - Physical Exam General: Alert, Oriented x3, No apparent distress, - - ECOG 1, Although he reported he quit smoking patient had a smell of cigarettes HEENT: Atraumatic, PERRLA, EOMI, Normocephalic Oropharynx:: Dry mucosa Neck:: Supple, Trachea midline, - - Chronic in duration and pigmentation of the skin of the left lateral neck post radiation. Negative for: JVD, bilateral Cardiac:: Regular rate, Regular rhythm, Normal S1, Normal S2. Negative for: Murmur Lungs: Clear to auscultation, Diminished, Excusion symmetrical. Negative for: Rhonchi, Wheezes Abdomen:: Soft, Non-tender, Non-distended. Negative for: Hepatosplenomegaly Extremities:: Negative for: Cyanosis, Edema Neurological: Neuro grossly intact Skin:: Negative for: Lesions, Rash, Petechiae, Ecchymosis Psychiatric:: Appropriate affect, Euthymic Lymphatics:: Negative for: Cervical lymphadenopathy, Supraclavicular lymphadenopathy Diagnostic Data: Diagnostic Data Assessment and Plan 60-year-old male ex-smoker, in addition to excessive alcohol consumption until the diagnosis and start of treatment of 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 Patient is status post tonsillectomies and uveal excision yet no primary identified. Received concomitant chemoradiation January through March 2019 tolerated with expected but no excessive toxicities. He is in complete remission now and is on surveillance with no evidence to suggest cancer recurrence. Residual posttreatment skin hyperpigmentation and induration in the neck area and dry mouth. Indeterminate too small to further characterize lung nodules on initial staging chest CT of November 2018 remains stable on imaging through March 2020. Comorbid conditions: Smoking and excessive alcohol until the time of diagnosis of malignancy. Plan: 1- Continued surveillance for head and neck cancer. 2-Elective imaging with CT chest August 2020. 3-TSH follow-up thyroid function post radiation to the neck area ordered today, and adjustment of Synthroid replacement as per PCP. 4-follow-up with Drs. Sellers (September 2020) and Loretta. Impression and plan reviewed with patient . Quincy Simpson MD Environmental Services Floor Tech, [facility] Divisions of Medical Oncology Hematology Department of Internal Medicine [place] [phone] This note was generated using a voice recognition system software. Although it was reviewed by the author prior to finalization, it may still contain incorrect words, spelling, and punctuation that were not noted when reviewing prior to saving. If a clinically significant typo or inaccurately typed phrase is noted, please notify the author. Medications: Prescriptions This Visit Medication Instructions Recorded Levothyroxine 08/25/20 Primary Care Provider: Kya Gonzalez NP Referring Provider: 08/25/20 1609 <Electronically signed by Quincy Simpson MD> Date Quincy Simpson MD [facility] Signature: Date (if applicable) CC: Dr. Renny Burgos MD; DO Kya Cantor Start: 04-13-2020 End: 04-14-2020 Oncology Visit Report Comments: See Note; NOTES: [facility] [address] [place] [id number] OFFICE VISIT Date of Service: 04/13/20 1512 MR#: [id number] Acct: [id number] Name: MY JAMA Rep #: [id number] : 1960 From: Quincy Simpson MD Age/Sex: 59/M Location: [facility] Status: Signed - Problem List (1) Head and neck cancer Status: Chronic (2) Regional lymph node metastasis present Status: Chronic (3) Lung nodules Status: Chronic - Date of Service Date of Service:: 04/13/20 - Chief Complaint Head and neck cancer follow-up - History of Present Illness 59-year-old male Ex-smoker and alcoholic who presented with a painless left neck mass that has progressively increased in size over the course of the past couple of months. December 17, 2018 CT soft tissues of the neck: FINDINGS: There is a rim-enhancing centrally cystic mass distal to the angle the mandible, lateral to the hyoid cartilage, along the anterior margin of the sternocleidomastoid muscle. Wall thickness up to 4.9 mm. Process measures approximately 1.8 cm craniocaudal, 1.8 cm transverse, 2.9 cm anterior-posterior. Posteriorly and deep to the sternomastoid muscle, single mildly enlarged lymph node measuring 1.2 x 1.6 cm. A few additional shotty lymph nodes are present on the left. Normal thyroid. Normal submandibular glands and parotid glands. There is no right cervical lymphadenopathy. Pharyngeal and laryngeal soft tissues appear normal. Multilevel cervical spondylosis with disc disease most notable at C5-C6 with uncovertebral joint hypertrophy contributing to mild foraminal narrowing. Mucoperiosteal thickening and mucous retention cysts of the maxillary sinuses. Solitary opacified posterior right ethmoid sinus. Mastoid air cells and middle ear cavities clear. 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 December 17, 2018 CT chest: FINDINGS: Supraclavicular: No acute process within the [id number]. Body wall soft tissues: No acute process. Upper abdomen: No acute process. Osseous structures: No acute process. Mild scoliosis, moderate kyphosis, mild multilevel thoracic spondylosis. Mediastinum: No acute process. Cardiovascular: No acute process. Lungs: A few small scattered pulmonary nodules are present. The largest is in the right upper lobe anterior segment, series 6 image 73, 5 cm, solid features, smooth margins. Unremarkable airways. IMPRESSION: No acute thoracic process is evident. Small pulmonary nodules. The largest measures approximately 5 mm. Follow-up low-dose CT chest is recommended in 1 year for pulmonary nodule surveillance purposes. December 22, 2018 DIAGNOSIS CYTOLOGY A. 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 See comment. B. 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 ANTIBODY / CLONE RESULT Block A AE1-3 (AE1/AE3/PCK26) positive CK7 (OV-TL12/30) negative CK8 (64oihdR29) positive, weak CK20 (KS20.8) negative TTF-1 (8G7G3/1) negative Napsin A (Rabbit Polyclonal) negative HepPar (OCh1E5) negative RCC (PN-15) negative PSAP (PASE/4LJ) negative CK5-6 (D5 1684) positive P16 (E6H4) negative P40 (BC28) positive, focal January 02, 2019: Patient was evaluated by ENT : oral and oropharyngeal mucosa were normal. Flexible laryngoscopy was performed which demonstrated no evidence of lesion. Small cystic lesion of the uvula was felt to be benign. January 05, 2019 PET/CT: IMPRESSION: 1. ABNORMAL EXAMINATION INDICATIVE OF MALIGNANT-VIABLE NEOPLASM. 2. Increased glucose concentration observed in the left lateral neck fulfills quantitative criteria for viable neoplasm. 3. Asymmetric enhanced FDG distribution noted in the left pharyngeal mucosal space may be further investigated with rigorous clinical examination. 4. No other quantitatively significant hypermetabolic abnormalities are noted. There is no definitive scintigraphic evidence of distant metastatic disease. January 30, 2019: left tonsil excision and uvula excision. Pathology displayed no evidence of malignancy or high-grade squamous dysplasia. There was noted to be submucosal dilated minor salivary gland duct with oncocytic metaplasia in the uvula. In preparation for locoregional combined chemoradiation patient Patient underwent multiple dental extractions, placement of PEG tube and port. February 10 through March 25, 2019 combined modality therapy (see below for details) May 13, 2019: CT chest: Comparison is made with prior study in December 17, 2018 There is persistent multifocal nodular pleural thickening or tiny pleural-based nodules in the lower lobes which are unchanged in size or number since previous study. The dominant nodule in the right lower lobe is not changed appreciably in size since prior exam June 29, 2019 PET/CT: IMPRESSION: 1. NEGATIVE EXAMINATION. There is no definitive quantitative scintigraphic evidence of recurrent-metastatic viable neoplasm. 2. There is interval metabolic resolution of the previously identified left lateral neck and left pharyngeal mucosal space hypermetabolic abnormalities. 3. Overall, compared to the prior FDG PET study dated 01/05/19, there is current absence of defined viable neoplastic disease with interval resolution of the prior defined hypermetabolic foci, as articulated above. October 07, 2019 CT chest: IMPRESSION: Normal enhanced CT Chest examination. April 06, 2020 CT chest: IMPRESSION: 1. Bilateral pulmonary nodules, stable in the interval. Appropriate follow-up using Fleischner Society criteria is recommended. 2. Dilatation of the main pulmonary artery measuring up to 3.2 cm in diameter. This may be associated with pulmonary hypertension. 3. Increased thoracic kyphosis. Diffuse endplate spondylosis of the visualized cervical, thoracic, and lumbar spine. No lytic or blastic osseous changes are seen. Treatment summary: Combined high-dose cisplatin and radiation January through March 2019: 6996 cGy delivered to gross disease involving the left neck, 5940 cGy to the high risk mucosal sites (entire oropharynx) and high risk lymph node sites (left levels 2-5), and 5412 cGy delivered to the low risk mucosal sites (nasopharynx, larynx, hypopharynx) bilateral high level 2, bilateral supraclavicular fossa, and right neck levels 2-5). The patient did receive concurrent chemotherapy with high dose cisplatin (cycle 1: 02/10, cycle 2: 03/02, cycle 3: 03/23). Date of First Treatment: 02/10/2019 Date of Last Treatment: 03/25/2019 - Past Medical/Social History Past Medical History Cancer: Other Other Cancer History: carcinoma of unknown primary Social History Social History: No changes Smoking Status Former smoker Review of Systems Constitutional:: Reports: - - Able to do ADL, work, do yard work, ride a dirt bike. Denies: Fever, Sweats, Weight loss, Appetite change, Chills Cardiovascular:: Reports: Dyspnea on exertion. Denies: Chest pain, Palpitations, Orthopnea, PND, Shortness of breath Respiratory: Reports: Cough, Shortness of breath upon exertion. Denies: Hemoptysis, Shortness of Breath, Wheezing Gastrointestinal:: Reports: - - Dry mouth, need sips of water to help swallow bread. Denies: Abdominal pain, Nausea, Vomiting, Diarrhea, Constipation, Hematochezia Genitourinary: Denies: Dysuria, Hematuria, 15, Flank pain Musculoskeletal:: Denies: Back pain, Myalgia, Arthralgia Skin: Denies: Rash, Skin Changes, Wounds Neurological:: Denies: Headache, Dizziness, Visual changes, Tinnitus, Hearing loss Psychiatric: Denies: Anxiety, Depression, Homicidal Ideations, Suicidal Ideations Vital Signs Temperature 98.6 F 04/13/20 15:04 Temperature Source Temporal 04/13/20 15:04 Pulse Rate 74 04/13/20 15:04 Respiratory Rate 16 04/13/20 15:04 Blood Pressure 162/83 H 04/13/20 15:04 Blood Pressure Mean 109 04/13/20 15:04 Blood Pressure Source Monitor 04/13/20 15:04 Blood Pressure Position Sitting 04/13/20 15:04 Blood Pressure Location Left Arm 04/13/20 15:04 Pulse Ox 98 04/13/20 15:04 Oxygen Delivery Method Room Air 04/13/20 15:04 CLA-BSI maintained Yes 09/09/19 14:21 - Physical Exam General: Alert, Oriented x3, No apparent distress, - - Hoarse (chronic HEENT: Atraumatic, PERRLA, EOMI, Normocephalic Oropharynx:: Dry mucosa Neck:: Supple, Trachea midline. Negative for: JVD, bilateral Cardiac:: Regular rate, Regular rhythm, Normal S1, Normal S2. Negative for: Murmur Lungs: Clear to auscultation, Diminished, Excusion symmetrical. Negative for: Rhonchi, Wheezes Abdomen:: Soft, Non-tender, Non-distended. Negative for: Hepatosplenomegaly Extremities:: Negative for: Cyanosis, Edema Neurological: Neuro grossly intact Skin:: - - Postradiation skin pigmentation and induration neck. 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 Patient is status post tonsillectomies and uveal excision yet no primary identified. Received concomitant chemoradiation January through March 2019 tolerated with expected but no excessive toxicities. He is in complete remission now and is on surveillance with no evidence to suggest cancer recurrence. Residual posttreatment skin hyperpigmentation and induration in the neck area and dry mouth. Indeterminate too small to further characterize lung nodules on initial staging chest CT of November 2018 remains stable on imaging through March 2020. Comorbid conditions: Smoking and excessive alcohol until the time of diagnosis of malignancy. Plan: 1- Continued surveillance for head and neck cancer. 2-Elective imaging with CT chest in 6 months (August 2020). 3-TSH follow-up thyroid function post radiation to the neck area. Impression and plan reviewed with patient . Quincy Simpson MD Environmental Services Floor Tech, [facility] Divisions of Medical Oncology Hematology Department of Internal Medicine [place] [phone] This note was generated using a voice recognition system software. Although it was reviewed by the author prior to finalization, it may still contain incorrect words, spelling, and punctuation that were not noted when reviewing prior to saving. If a clinically significant typo or inaccurately typed phrase is noted, please notify the author. Primary Care Provider: Kya Gonzalez NP Referring Provider: 04/13/20 1532 <Electronically signed by Quincy Simpson MD> Date Quincy Simpson MD Cosigner Signature: Date (if applicable) CC: DO Kya Cantor Start: 04-12-2020 End: 04-12-2020 Oncology Follow-Up Visit Comments: See Note; NOTES: [facility] Medical Records Department [address] [place] [address] Oncology Follow-Up Visit 04/12/20 1543 MR#: [id number] Acct: [id number] Name: MY JAMA Rep #: [id number] : 1960 59 From: Santiago Sellers DO PCP: YARI Pardo Status:REG RCR Y Location: [facility] Date of Service: 04/12/20 Last Clinic Visit: 10/01/19 Diagnosis: My Jama is a 59-year-old male diagnosed with 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 From 02/10/2019 - 03/25/2019 he received definitive chemoradiation therapy consisting of 6996 cGy in 33 fractions with concurrent high dose cisplatin. History of Present Illness: 04/28/2018: Patient underwent EGD due to odynophagia. This demonstrated significant esophagitis in the distal esophagus measuring 1-2 cm in length. Biopsy was obtained. Duodenum and stomach appeared normal. Pathology demonstrated focal changes suggestive of reflux. 12/15/2018: Patient presented to with a left-sided lump involving his neck which was firm and nontender. This lesion was present for about 3-4 weeks. 12/17/2018: CT neck and chest was completed. There are a few small scattered pulmonary nodules present with the largest in the right upper lobe anterior segment measuring 5 mm with solid features and smooth margins. Recommended to have follow-up low-dose chest CT in 1 year for pulmonary nodule surveillance. There is a rim-enhancing centrally cystic mass distal to the angle of the mandible lateral to the hyoid cartilage along the anterior margin of the sternocleidomastoid muscle with wall thickness up to 4.9 mm. Process measures approximately 1.8 cm craniocaudal and 2 1.8 cm transverse and 2.9 cm AP. Posteriorly and deep to the SCM there is a 1.2 x 1.6 cm mildly enlarged lymph node and a few additional shotty lymph nodes present on the left. No evidence of cervical adenopathy on the right. Pharyngeal and laryngeal soft tissues appear normal. 12/22/2018: Ultrasound-guided FNA of the left neck mass was completed and pathology demonstrated malignant cells consistent with keratinizing squamous cell carcinoma with extensive necrosis, p16 negative. 12/31/2018: Evaluation by medical oncology. Recommended ENT evaluation with panendoscopy and PET/CT for staging. 01/02/2019: Patient was evaluated by ENT. On exam he was noted to have a large fixed left cervical radha conglomerate. Also noted was a 1 cm cystic lesion of the uvula. Otherwise oral and oropharyngeal mucosa were normal. Flexible laryngoscopy was performed which demonstrated no evidence of lesion. Small cystic lesion of the uvula was felt to be benign. 01/05/2019: PET scan was performed which demonstrated 2 separate nodular foci of increased glucose metabolism manifest in the left lateral neck level 3 generating a calculated maximum SUV of 8.6 with the larger soft tissue density demonstrating central photopenia in the largest corresponding lesion measured on CT is 2.8 cm x 3.5 cm. There is asymmetric increased FDG distribution defined in the left pharyngeal mucosal space generating a calculated maximum SUV of 3.4 with a maximum axial diameter of corresponding metabolic abnormality measuring 1.9 cm. There is no evidence of metastatic disease identified. Recommendation is to closely clinically evaluate the left pharyngeal area lesion for primary disease. 01/08/2019: Patient underwent dental extraction of numbers 7 through 13 and #14. 01/13/2019: Patient underwent dental extraction of #6 and 2 through 5, he also completed amalgam fillings of #21 through 22 and 28. Following this procedure he was confirmed to be cleared for radiation therapy. 01/26/2019: Patient underwent placement of PEG tube and port. 01/30/2019: Patient completed left tonsil excision and uvula excision. Pathology displayed no evidence of malignancy or high-grade squamous dysplasia. There was noted to be submucosal dilated minor salivary gland duct with oncocytic metaplasia in the uvula. From 02/10/2019 - 03/25/2019: Received 6996 cGy delivered to gross disease involving the left neck, 5940 cGy to the high risk mucosal sites (entire oropharynx) and high risk lymph node sites (left levels 2-5), and 5412 cGy delivered to the low risk mucosal sites (nasopharynx, larynx, hypopharynx) bilateral high level 2, bilateral supraclavicular fossa, and right neck levels 2-5). Treatment was completed using dose painting IMRT and a single VMAT plan and he received concurrent chemotherapy with high dose cisplatin (cycle 1: 02/10, cycle 2: 03/02, cycle 3: 03/23). 05/13/2019: CT chest was performed. In comparison to the study in November 2018 there is persistent multifocal nodular pleural thickening or tiny pleural-based nodules in the lower lobes which are unchanged in size or number since the previous study. This measures 4 mm. 06/26/2019: Patient underwent swallow study and then had discussion with speech therapy. Recommendations are for a mechanical soft textured and thin liquid diet. Exercises and other strategies were recommended and speech therapy will continue to follow-up. 06/29/2019: PET scan was performed which demonstrated no definitive quantitative scintigraphic evidence of recurrent/metastatic viable neoplasm, overall when compared to the prior PET scan dated 01/05/2019 there is currently an absence of defined viable neoplastic disease with interval resolution of the primary defined hypermetabolic foci. 07/16/2019: Follow up with medical oncology. Plan for surveillance CT chest in 3 months to reassess nonspecific lung nodules. 12/31/2019: Follow up with ENT. NPL showed no evidence of disease, epiglottic and arytenoid edema present. 03/30/2020: swallow study was performed. Recommendations are for regular/soft textured and thin liquid diet. 04/06/2020: CT chest was performed and demonstrated bilateral pulmonary nodules which are stable since the prior exam. No other evidence of disease is identified. Radiation Treatment History: 1) From 02/10/2019 - 03/25/2019: Received 6996 cGy delivered to gross disease involving the left neck, 5940 cGy to the high risk mucosal sites (entire oropharynx) and high risk lymph node sites (left levels 2-5), and 5412 cGy delivered to the low risk mucosal sites (nasopharynx, larynx, hypopharynx) bilateral high level 2, bilateral supraclavicular fossa, and right neck levels 2-5). Treatment was completed using dose painting IMRT and a single VMAT plan and he received concurrent chemotherapy with high dose cisplatin (cycle 1: 02/10, cycle 2: 03/02, cycle 3: 03/23). Interval History: Patient presents for follow-up about 12 months after completing definitive chemoradiation. Since his last visit he has continued to heal well from previous radiation related toxicities. He denies having any pain with swallowing, this has completely resolved. He can eat all foods except struggles some with swallowing bread. He does have dry mouth and has to drink a lot of fluids while he is eating. He does use Biotene spray for occasional relief. He believes his taste is completely normal. He denies having coughing/choking with swallowing. He continues to do neck and swallowing exercises. He has dentures and denies new dental pain. He was however seen by his dentist who discussed removal of 6 of his 8 remaining teeth and replacing them with dentures. He is eating well without unexpected weight loss. He denies worsening hoarseness, headache, otalgia, vision changes, hearing loss, cough, shortness of breath, hemoptysis, focal arm weakness/numbness. He denies headaches, bone pain, or excess fatigue. He completes all activities of daily living without much difficulty. He denies other problems or concerns at this time. I have reviewed the medical, surgical, and other pertinent history in details and have updated medication and allergy information in the electronic medical record. Review of Systems: A 12-point review of systems was completed and was negative except for what is noted in the HPI/Interval History and by the nurse. Height/Weight/BMI: Height: 5 ft 6 in Weight: 128.8 lbs (weight at end of [employer] 03/25/2019: 126.6 lbs) Vital Signs Temperature 97.3 F L 04/12/20 15:07 Temperature Source Temporal 04/12/20 15:07 Pulse Rate 75 04/12/20 15:07 Respiratory Rate 14 04/12/20 15:07 Blood Pressure 152/82 H 04/12/20 15:07 Blood Pressure Mean 105 04/12/20 15:07 Blood Pressure Source Monitor 04/12/20 15:07 Blood Pressure Position Sitting 04/12/20 15:07 Blood Pressure Location Left Arm 04/12/20 15:07 Pulse Ox 99 04/12/20 15:07 Oxygen Delivery Method Room Air 04/12/20 15:07 CLA-BSI maintained Yes 09/09/19 14:21 Physical Exam: ECO KARNOFSKY SCORE: 80% CONSTITUTIONAL: Well-developed, well-nourished, and in no apparent distress. HEENT: Mucous membranes moist. Evidence of left tonsillectomy extending to the soft palate and including the uvula area appears to be healing well. confluent erythema and mucositis present in the visualized oropharynx. No trismus. Patient has 8 lower teeth remaining which are without caries or infection, remaining teeth were previously removed and gingiva are are well-healed, he has dentures. BOT without firmness or asymmetry. No evidence of recurrence involving the oropharynx including soft palate and bilateral tonsillar fossa. Pupils are equal, round, and reactive to light and accommodation. Extraocular movements are intact. Sclerae are anicteric. NECK: Supple,with no thyromegaly, and non-tender. Trachea midline. The previously noted left neck adenopathy appears to have completely resolved. No erythema, right neck hypopigmentation present. Neck range of motion is intact. There are no palpable lymph nodes in the neck or supraclavicular region. Firm scar tissue noted in the anterior neck. No lymphedema. CARDIAC: Regular rate and rhythm. Normal S1, S2. No murmurs, rubs, or gallops. PULMONARY/CHEST: Lungs are clear to auscultation and percussion bilaterally. No wheezes, rhonchi, or crackles noted. No increased work of breathing. ABDOMINAL: Abdomen soft, non-tender, non-distended. No hepatomegaly. Normoactive bowel sounds in all four quadrants. No guarding, rebound. BACK: Straight and aligned. No CVA tenderness. Axial skeleton non-tender to percussion. EXTREMITIES: Full range of motion in all four extremities, with normal strength equally and symmetrically. No evidence of edema. No clubbing. NEUROLOGICAL EXAM: Alert and oriented x 3. Cranial nerves II through XII are grossly intact. No focal neurological deficit. Speech is fluent. There is no upper or lower extremity sensory deficit or motor deficit. Muscle strength is 5/5 in all muscle groups. Gait and posture are steady. PSYCHIATRIC: Appropriate mood and affect for the clinical situation. 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 From 02/10/2019 - 03/25/2019 he received definitive chemoradiation therapy consisting of 6996 cGy in 33 fractions with concurrent high dose cisplatin. Patient returns about 12 months after completing definitive chemoradiation. He continues to heal well from radiation associated toxicities and has persistent dry mouth and mild persistent skin pigmentation changes. I reviewed the recommended care for these toxicities and likely timing for resolution. No evidence of disease on exam. He will also continue to follow-up with [facility] for continued improvement of his swallowing, he will see them tomorrow. He was seen by his dentist and reports that they would like to remove 6 of his remaining 8 lower teeth, I plan to call and discuss this with the dentist. Follow-up chest CT last week demonstrated stability of previously noted lung nodules, he is planning to discuss this with medical oncology tomorrow. I do not recommend further imaging for the head neck area at this time. I did discuss it is necessary to have close follow-up with myself and ENT for exams. I recommended he return to see ENT within 3 months and then me in 6 months. He was in agreement with my recommendations and he was instructed to call with any further questions or concerns in the interim. Santiago Sellers DO, MS Environmental Services Floor Tech, Department of Radiation Oncology [facility] 04/12/20 [id number] <Electronically signed by Santiago Sellers DO> Date Santiago Sellers DO CC: Dr. Renny Burgos MD; Dr. Quincy Simpson MD Signed Kya Gonzalez Start: 04-06-2020 End: 04-06-2020 Chest WITH Contrast Comments: See Note; NOTES: [facility] Imaging Services [address] [place] [address] Chest WITH Contrast MR#: [id number] Acct: [id number] Name: MY JAMA Rep #: [id number] : 1960 59 From: Jono Ackerman i, MD PCP: Kya Gonzalez, BOOTH CLEANER-C Status: REG CLI Study: Chest WITH Contrast Date of Exam: 04/06/20 Exam# [id number] Ordering Dr: Quincy Simpson MD STUDY: CT CHEST WITH CONTRAST REASON FOR EXAM: Male, 59 years old. F/U RESPONSE TO TREATMENT, THROAT/LUNG CANCER RAD + CHEMO. RADIATION DOSAGE (If Supplied By Facility): CTDIvol = ( 9.62 ) mGy, DLP = ( 236.87 ) mGycm TECHNIQUE: Transaxial imaging was performed following intravenous administration of IV 100mL Isovue-300. Individualized dose optimization techniques were used for this CT. COMPARISON: Previous study of 10/07/2019 FINDINGS: There is a 4 mm pleural-based nodule of the right lower lobe image 100 series 4. There is a 5 mm right middle lobe nodule image 91 series 4. There is a pleural-based 2 mm nodule of the left lower lobe image 93 series 4. There is a 3 mm pleural-based nodule of the left lower lobe image 100 series 4. There is a 2 mm pleural-based nodule of the posterior left lower lobe image 103 series 4. There is no demonstrated pleural abnormality. Normal heart and pericardium. Normal mediastinum. Normal hilar regions. There is dilatation of the main pulmonary artery measuring up to 3.2 cm in diameter. Normal aorta arch and descending thoracic aorta. There is an increased thoracic kyphosis. There is diffuse endplate spondylosis of the visualized cervical, thoracic, and lumbar spine. No lytic or blastic osseous changes are seen. There is no demonstrated abnormality of the visualized upper abdomen. CT/Chest WITH Contrast IMPRESSION: 1. Bilateral pulmonary nodules, stable in the interval. Appropriate follow-up using Fleischner Society criteria is recommended. 2. Dilatation of the main pulmonary artery measuring up to 3.2 cm in diameter. This may be associated with pulmonary hypertension. 3. Increased thoracic kyphosis. Diffuse endplate spondylosis of the visualized cervical, thoracic, and lumbar spine. No lytic or blastic osseous changes are seen. Electronically Signed: Jono Duong MD at 17:15 EDT , Service support , CC: YARI Gonzalez; Dr. Quincy Simpson MD Wood Router Hand: Signed Kya Gonzalez Start: 03-30-2020 End: 03-30-2020 Modified Barium Swallow Study Comments: See Note; NOTE S: [facility] Speech Pathology [address] [place] [address] Modified Barium Swallow Study MR#: [id number] Acct: [id number] Name: MY JAMA Rep #: [id number] : 1960 [id number] From: Diomedes Bentley M.A., CCC-[facility] REGISTERED NURSE PRIMARY / SECONDARY DIAGNOSIS: dysphagia (R13.12) CURRENT DIET (SOLIDS): regular textures (IDDSI: 7) CURRENT DIET (LIQUIDS): thin liquid diets (IDDSI: 0) DENTITION: edentulous upper status; natural lower dentition MENTAL STATUS: intact RESPIRATORY STATUS: O2 via room air FUNCTIONAL AMBULATION CATEGORY (FAC): 5 (ambulator- independent) REASON FOR REFERRAL: The Patient is a 59 year old male referred for a modified barium swallow (MBS) study to objectively assess the Patients oropharyngeal swallow function under fluoroscopy secondary to secondary to clinical stage NOREEN (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 PREVIOUS MODIFIED BARIUM SWALLOW STUDY: 06/26/2019 MBS revealed moderate oropharyngeal dysphagia (DSRS: 4; SPS: 5; DIGEST: grade II) with grade III SILENT and overt aspiration of thin liquids. ASSESSMENT PARAMETERS: The Patient participated in a Modified Barium Swallow (MBS) study on 03/30/2020. This study was recorded in the lateral view and images were sent to PACs for storage. Scoring was completed through each trial using the 8-point Penetration-Aspiration Scale (PAS) and the Videofluoroscopic Scale Score (VSS), and summarized via the Modified Barium Swallow Impairment Profile (MBSImP) and the Bolus Residue Scale (BRS), with severity scoring through the Swallowing Performance Scale (SPS), and the Dynamic Imaging Grade of Swallowing Toxicity (DIGEST), and recommended diet textures through the International Dysphagia Diet Standardisation Initiative (IDDSI) RESULTS OF THE EVALUATION: The Patient presents with moderate pharyngeal dysphagia (SPS: 5; DIGEST: grade I) with grade III SILENT aspiration of thin liquids OBJECTIVE ASSESSMENT OF SWALLOW FUNCTION (QUANTITATIVE ??? PER TRIAL): PENETRATION / ASPIRATION SCALE (SENIOR): 1 = does not enter airway 2 = enters airway/above vocal folds/ejected 3 = enters airway/above vocal folds/not ejected 4 = enters airway/contacts vocal folds/ejected 5 = enters airway/contacts vocal folds/not ejected 6 = enters airway/below vocal folds/ejected 7 = enters airway/below vocal folds/not ejected despite effort 8 = enters airway/below vocal folds/no effort VIDEOFLOROSCOPIC SCALE SCORE (SENIOR): Grade I = aspiration of material that has penetrated into the laryngeal vestibule, intact cough reflex Grade II = aspiration < 10 % of the bolus, intact cough reflex Grade III = aspiration of < 10 % of the bolus, reduced cough reflex or aspiration of > 10 % of the bolus, intact cough reflex Grade IV = aspiration of > 10 % of the bolus, reduced cough reflex PENETRATION / ASPIRATION SCALE (SCORE) WITH VIDEOFLOROSCOPIC SCALE SCORE: Thin liquid - 5 mL tsp.: 1 Thin liquids via cup (single sip): 2 Thin liquids via cup (single sip): 1 Thin liquids via cup (single sip): 2 Thin liquids via cup (single sip): 3 Thin liquids via cup (single sip): 2 Thin liquids via cup (single sip): 2 Thin liquids via cup (single sip): 2 Pudding via spoon: 1 Regular textured cookie: 1 Thin liquids via straw (single sip): 5 Thin liquids via straw (single sip): 3, 8* ??? Grade III Thin liquids via straw (chin tuck): 2 Thin liquids via straw (chin tuck): 2 Thin liquids via straw (chin tuck): 3 Thin liquids via straw (chin tuck): 2 * denotes progression of previously penetrated material OBJECTIVE ASSESSMENT OF SWALLOW FUNCTION (QUANTITATIVE ??? AGGREGATE): MODIFIED BARIUM SWALLOW IMPAIRMENT PROFILE (MBSImP) LABIAL SEAL: 0 (of 4) no labial escape TONGUE CONTROL: 0 (of 3) cohesive bolus BOLUS PREPARATION / MASTICATION: 0 (of 3) timely and efficient BOLUS TRANSPORT / LINGUAL MOTION: 0 (of 4) brisk tongue motion ORAL RESIDUE: 1 (of 4) trace residue lining oral structures INITIATION OF PHARYNGEAL SWALLOW: 2 (of 4) posterior surface of epiglottis SOFT PALATE ELEVATION: 0 (of 4) no bolus between soft palate pharyngeal wall LARYNGEAL ELEVATION: 1 (of 3) partial superior movement / approximation ANTERIOR HYOID EXCURSION: 1 (of 2) partial movement EPIGLOTTIC MOVEMENT: 0 (of 2) complete inversion LARYNGEAL VESTIBULE CLOSURE: 1 (of 2) incomplete closure PHARYNGEAL STRIPPING WAVE: 1 (of 2) present / diminished PE SEGMENT OPENIN (of 3) partial distension / duration / obstruction TONGUE BASE RETRACTION: 2 (of 4) narrow column of contrast PHARYNGEAL RESIDUE: 2 (of 4) collection of residue ESOPHAGEAL BOLUS CLEARANCE: could not view BOLUS RESIDUE SCALE (BRS): BRS SCORE: 4 (of 6) BRS SCORE DESCRIPTION: residue in valleculae and posterior pharyngeal wall OBJECTIVE ASSESSMENT OF SWALLOW FUNCTION (SEVERITY GRADING): SWALLOWING PERFORMANCE SCALE (SPS): SPS CLASSIFICATION: 5 (moderate) SPS CLASSIFICATION CHARACTERISTICS: aspiration noted on examination; requires modified diet and / or swallowing precautions to minimize risk of aspiration DYNAMIC IMAGING GRADE OF SWALLOWING TOXICITY (DIGEST) DIGEST SAFETY GRADE: grade 1 DIGEST EFFICIENCY GRADE: grade 1 SUMMARY DIGEST GRADE: grade 1 (mild) OBJECTIVE ASSESSMENT OF SWALLOW FUNCTION (QUALITATIVE): ORAL PREPARATORY PHASE: competent bolus manipulation; sufficient anterior oral containment during oral manipulation; preserved management of breathing / bolus formation without disrupted E ??? S ??? E pattern ORAL TRANSITIONAL PHASE: no presence of transitional incompetence; no bolus consolidation impairments; sufficient oral containment across textures; no presence of premature posterior bolus loss PHARYNGEAL PHASE: age appropriate pharyngeal phase synchrony; mild reduction in hyolaryngeal excursion and duration resulting inconsistent laryngeal vestibule pressure generated to expel penetrated material; mild pharyngeal dysmotility most prominently with solid textures with consolidation predominantly within the vallecula; appropriate velopharyngeal functioning ESOPHAGEAL PHASE: no obvious esophageal phase abnormalities observed. CONTRIBUTING / COMPLICATING FACTORS AND NOTABLE FINDINGS: absent cough in response to tracheobronchial aspiration; sufficient volitional cough intensity to expel penetrated material / laryngotracheal aspiration RESPONSE TO STRATEGIES: all deficits managed successfully with reduction in bolus rate / volume adjustments, execution of the chin tuck posture with use of a straw, execution of a liquid wash following solid ingestion, and diet texture / viscosity adjustments. DYSPHAGIA ASSOCIATED MEDICAL / INTERVENTION CONSIDERATIONS: The Patient was noted to SILENTLY aspirate with very scant quantities of previously penetrated thin liquids (less than 5% of any bolus), with clinical assessment at bedside relying on identification of classic overt signs and symptoms of aspiration considered unreliable. The Patient does express a desire to remain on thin liquids given the functional improvements in tolerance with execution of the chin tuck posture in conjunction with reductions in bolus volumes, which is reasonable given his overall maintained medical condition, maintained ambulatory abilities, and strong dedication to all recommendations that have been made throughout the intervention cycle that would suggest a higher likelihood for compliance and sufficient execution. I will recommend completion of an annual modified barium swallow study (if clinically appropriate) to continually assess the presence and extent of post irradiation dysphagia and presence / extent of silent and overt aspiration, as continued changes in the swallow pattern post irradiation remains high. I would consider the Patient to be at a higher risk of aspiration related medical complications / aspiration pneumonia / aspiration related pulmonary syndrome secondary to the diagnosis of oropharyngeal cancer status post chemoradiation, presence of dysphagia with pharyngeal phase impairment and silent aspiration identified under fluoroscopy, upper edentulous status, and intermittent tube feeding use. Would consider the Patent to be at a higher risk of oropharyngeal colonization with respiratory pathogens secondary to the Patient???s recent poor nutritional status, xerostomia, recent use of antibiotics possibly provoking a variety of respiratory alida, placement on alternative means of nutrition, and prevalence of gastroesophageal reflux disease. Aspiration of saliva contaminated with pathogens can lead to pulmonary infections, with creation, implementation, and adherence to an aggressive oral and dental care program is essential. Will continue to recommend an aggressive oral care program that includes pre-rinse use prior to water intake; routine oral care / denture care in the a.m., prior to oral intake, after oral intake, and prior to bed via toothbrush / swab / rinse; use of oral moisturizers as needed to reduce impact of xerostomia; and frequent dental checkups. INTERVENTION RECOMMENDATIONS AND CONSIDERATIONS: The Patient requires continued skilled speech-language intervention targeting diet texture management and training / implementation of recommended compensatory strategies; continued training and implementation of a home based prophylactic swallowing exercise program to promote the highest level of preserved post-irradiation swallow functioning; continued training and implementation of a home oral care protocol to reduce the effects of xerostomia and improve / maintain the integrity of the oral mucosa reducing the risk of aspiration related pulmonary complications; and continued Patient education regarding candace and post-irradiation dysphagia and associated symptomology; POST ASSESSMENT EDUCATION: Results and recommendations were discussed with the Patient immediately following MBS completion, with the Patient verbalizing understanding and agreement with all recommendations and education provided. We discussed factors impacting effects of aspiration, to include: the quantity of aspiration, the depth of aspiration (trachea or distal airways), and the physical properties of the aspirate. We further discussed consequences of oropharyngeal dysphagia, to include pulmonary complications from tracheobronchial aspiration; potential for airway obstruction / asphyxiation; inadequate oral intake because of dysphagia; reduced liquid intake resulting in dehydration; reduced caloric intake resulting in unintentional and potentially medically complicating loss of weight; impairment in mental and physical condition that can include deterioration in the quality of life, and increased risk for mortality / . I provided brief overview of signs and symptoms of aspiration, with recommendations for the Patient to further discuss symptoms with the Patients primary care provider. DIET TEXTURE RECOMMENDATIONS: Will recommend a regular - soft textured (IDDSI: 6), thin liquid diet (IDDSI: 0) diet RECOMMENDED COMPENSATORY STRATEGIES: Consider cutting tougher textures into bite sized pieces, execution of the chin tuck posture via straw with liquids, reduced bolus volume / rate of ingestion, liquid chaser at reasonable intervals, seated upright at 90 degrees during PO intake, remain upright for 30-60 minutes post meal (GERD precaution), medications one at a time with purees. IMAGE COUNT: Diomedes Bentley M.A., MARCIA-ADVANCED PRACTICE REGISTERED NURSE, CBIS MBSImP Certified, LSVT Certified [facility] Speech-Language Pathology Department Email: [email or web address] 03/30/201800 <Electronically signed by Diomedes Bentley M.A., CCC-S LP> Date Diomedes Bentley M.A., CCC-ADVANCED PRACTICE REGISTERED NURSE Co-Signature Required for all Medicare patients Date/Time _ Co-Signature CC: Kya Gonzalez Start: 01-13-2020 End: 01-13-2020 Oncology Visit Report Comments: See Note; NOTES: [facility] [place] [address] OFFICE VISIT Date of Service: 01/13/20 1307 MR#: [id number] Acct: [id number] Name: MY JAMA Rep #: [id number] : 1960 From: Quincy Simpson MD Age/Sex: 59/M Location: OMD Status: Signed - Problem List (1) Head and neck cancer Status: Chronic (2) Regional lymph node metastasis present Status: Chronic (3) Lung nodules Status: Chronic - Date of Service Date of Service:: 01/13/20 - Chief Complaint Head and neck cancer follow-up - History of Present Illness 59-year-old male Ex-smoker and alcoholic who presented with a painless left neck mass that has progressively increased in size over the course of the past couple of months. December 17, 2018 CT soft tissues of the neck: FINDINGS: There is a rim-enhancing centrally cystic mass distal to the angle the mandible, lateral to the hyoid cartilage, along the anterior margin of the sternocleidomastoid muscle. Wall thickness up to 4.9 mm. Process measures approximately 1.8 cm craniocaudal, 1.8 cm transverse, 2.9 cm anterior-posterior. Posteriorly and deep to the sternomastoid muscle, single mildly enlarged lymph node measuring 1.2 x 1.6 cm. A few additional shotty lymph nodes are present on the left. Normal thyroid. Normal submandibular glands and parotid glands. There is no right cervical lymphadenopathy. Pharyngeal and laryngeal soft tissues appear normal. Multilevel cervical spondylosis with disc disease most notable at C5-C6 with uncovertebral joint hypertrophy contributing to mild foraminal narrowing. Mucoperiosteal thickening and mucous retention cysts of the maxillary sinuses. Solitary opacified posterior right ethmoid sinus. Mastoid air cells and middle ear cavities clear. 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 December 17, 2018 CT chest: FINDINGS: Supraclavicular: No acute process within the [id number]. Body wall soft tissues: No acute process. Upper abdomen: No acute process. Osseous structures: No acute process. Mild scoliosis, moderate kyphosis, mild multilevel thoracic spondylosis. Mediastinum: No acute process. Cardiovascular: No acute process. Lungs: A few small scattered pulmonary nodules are present. The largest is in the right upper lobe anterior segment, series 6 image 73, 5 cm, solid features, smooth margins. Unremarkable airways. IMPRESSION: No acute thoracic process is evident. Small pulmonary nodules. The largest measures approximately 5 mm. Follow-up low-dose CT chest is recommended in 1 year for pulmonary nodule surveillance purposes. December 22, 2018 DIAGNOSIS CYTOLOGY A. 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 See comment. B. 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 ANTIBODY / CLONE RESULT Block A AE1-3 (AE1/AE3/PCK26) positive CK7 (OV-TL12/30) negative CK8 (98raavT43) positive, weak CK20 (KS20.8) negative TTF-1 (8G7G3/1) negative Napsin A (Rabbit Polyclonal) negative HepPar (OCh1E5) negative RCC (PN-15) negative PSAP (PASE/4LJ) negative CK5-6 (D5 AND 1684) positive P16 (E6H4) negative P40 (BC28) positive, focal January 02, 2019: Patient was evaluated by ENT : oral and oropharyngeal mucosa were normal. Flexible laryngoscopy was performed which demonstrated no evidence of lesion. Small cystic lesion of the uvula was felt to be benign. January 05, 2019 PET/CT: IMPRESSION: 1. ABNORMAL EXAMINATION INDICATIVE OF MALIGNANT-VIABLE NEOPLASM. 2. Increased glucose concentration observed in the left lateral neck fulfills quantitative criteria for viable neoplasm. 3. Asymmetric enhanced FDG distribution noted in the left pharyngeal mucosal space may be further investigated with rigorous clinical examination. 4. No other quantitatively significant hypermetabolic abnormalities are noted. There is no definitive scintigraphic evidence of distant metastatic disease. January 30, 2019: left tonsil excision and uvula excision. Pathology displayed no evidence of malignancy or high-grade squamous dysplasia. There was noted to be submucosal dilated minor salivary gland duct with oncocytic metaplasia in the uvula. In preparation for locoregional combined chemoradiation patient Patient underwent multiple dental extractions, placement of PEG tube and port. February 10 through March 25, 2019 combined modality therapy (see below for details) May 13, 2019: CT chest: Comparison is made with prior study in December 17, 2018 There is persistent multifocal nodular pleural thickening or tiny pleural-based nodules in the lower lobes which are unchanged in size or number since previous study. The dominant nodule in the right lower lobe is not changed appreciably in size since prior exam June 29, 2019 PET/CT: IMPRESSION: 1. NEGATIVE EXAMINATION. There is no definitive quantitative scintigraphic evidence of recurrent-metastatic viable neoplasm. 2. There is interval metabolic resolution of the previously identified left lateral neck and left pharyngeal mucosal space hypermetabolic abnormalities. 3. Overall, compared to the prior FDG PET study dated 01/05/19, there is current absence of defined viable neoplastic disease with interval resolution of the prior defined hypermetabolic foci, as articulated above. October 07, 2019 CT chest: IMPRESSION: Normal enhanced CT Chest examination. Treatment summary: Combined high-dose cisplatin and radiation January through March 2019: 6996 cGy delivered to gross disease involving the left neck, 5940 cGy to the high risk mucosal sites (entire oropharynx) and high risk lymph node sites (left levels 2-5), and 5412 cGy delivered to the low risk mucosal sites (nasopharynx, larynx, hypopharynx) bilateral high level 2, bilateral supraclavicular fossa, and right neck levels 2-5). The patient did receive concurrent chemotherapy with high dose cisplatin (cycle 1: 02/10, cycle 2: 03/02, cycle 3: 03/23). Date of First Treatment: 02/10/2019 Date of Last Treatment: 03/25/2019 - Past Medical/Social History Past Medical History Cancer: Other Other Cancer History: carcinoma of unknown primary Social History Social History: No changes Smoking Status Former smoker Review of Systems Constitutional:: Reports: Fatigue - On exertion, back to work, Thirst change - Dry mouth, able to consume a normal diet with the help of sips of water and/or milk. Denies: Fever, Sweats, Weight loss, Appetite change, Chills Cardiovascular:: Reports: Dyspnea on exertion. Denies: Chest pain, Palpitations, Orthopnea, PND, Shortness of breath Respiratory: Reports: Shortness of breath upon exertion. Denies: Cough, Hemoptysis, Shortness of Breath, Wheezing Gastrointestinal:: Denies: Abdominal pain, Nausea, Vomiting, Diarrhea, Constipation, Hematochezia Genitourinary: Denies: Dysuria, Hematuria, 15, Flank pain Musculoskeletal:: Denies: Back pain, Myalgia, Arthralgia Skin: Denies: Rash, Skin Changes, Wounds Neurological:: Denies: Headache, Dizziness, Visual changes, Tinnitus, Hearing loss Psychiatric: Denies: Anxiety, Depression, Homicidal Ideations, Suicidal Ideations Vital Signs Temperature 98.1 F 10/14/19 12:52 Temperature Source Oral 10/14/19 12:52 Pulse Rate 86 10/14/19 12:52 Respiratory Rate 16 10/14/19 12:52 Blood Pressure 127/73 H 10/14/19 12:52 Blood Pressure Mean 91 10/14/19 12:52 Blood Pressure Source Monitor 10/14/19 12:52 Blood Pressure Position Sitting 10/14/19 12:52 Blood Pressure Location Right Arm 10/14/19 12:52 Pulse Ox 98 10/14/19 12:52 Oxygen Delivery Method Room Air 10/14/19 12:52 CLA-BSI maintained Yes 09/09/19 14:21 - Physical Exam General: Alert, Oriented x3, No apparent distress, - - ECOG 0-1 HEENT: Atraumatic, PERRLA, EOMI, Normocephalic Oropharynx:: Dry mucosa Neck:: Supple, Trachea midline, - - And duration of the skin consistent with prior radiation but no masses. Negative for: JVD, bilateral Cardiac:: Regular rate, Regular rhythm, Normal S1, Normal S2. Negative for: Murmur Lungs: Clear to auscultation, Diminished, Excusion symmetrical. Negative for: Rhonchi, Wheezes Abdomen:: Soft, Non-tender, Non-distended. 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 Patient is status post tonsillectomies and uveal excision yet no primary identified. Received concomitant chemoradiation January through March 2019 tolerated with expected but no excessive toxicities. He is in complete remission now and is on surveillance with no evidence to suggest cancer recurrence. Indeterminate too small to further characterize lung nodules on initial staging chest CT. Follow-up CT of the chest April 2019 showed stable nodules. PET/CT April 2019 show complete remission of abnormal uptakes and CT chest September 2019 did not show any residual or persistent nodule. Comorbid conditions: Smoking and excessive alcohol until the time of diagnosis of malignancy. Plan: 1- Continued surveillance for head and neck cancer. 2-elective imaging with CT chest March 2020. Impression and plan reviewed with patient . Quincy Simpson MD Environmental Services Floor Tech, [facility] Divisions of Medical Oncology AND Hematology Department of Internal Medicine [place] [id number] This note was generated using a voice recognition system software. Although it was reviewed by the author prior to finalization, it may still contain incorrect words, spelling, and punctuation that were not noted when reviewing prior to saving. If a clinically significant typo or inaccurately typed phrase is noted, please notify the author. Medications: Prescriptions This Visit Medication Instructions Recorded Thiamine Hydrochloride [Vitamin B1] 1 tab PO DAILY 01/05/19 Primary Care Provider: Kya Gonzalez NP Referring Provider: 01/13/20 1326 <Electronically signed by Quincy Simpson MD> Date Quincy Simpson MD Cosigner Signature: Date (if applicable) CC: Kya Gonzalez Start: 10-14-2019 End: 10-14-2019 Oncology Visit Report Comments: See Note; NOTES: [place] [address] OFFICE VISIT Date of Service: 10/14/19 1303 MR#: [id number] Acct: [id number] Name: MY JAMA Rep #: [id number] : 1960 From: Quincy Simpson MD Age/Sex: 59/M Location: OMD Status: Signed - Problem List (1) Head and neck cancer Status: Chronic (2) Regional lymph node metastasis present Status: Chronic (3) Lung nodules Status: Chronic - Date of Service Date of Service:: 10/14/19 - Chief Complaint Head and neck cancer follow-up - History of Present Illness 58-year-old male smoker and active alcoholic who presented with a painless left neck mass that has progressively increased in size over the course of the past couple of months. December 17, 2018 CT soft tissues of the neck: FINDINGS: There is a rim-enhancing centrally cystic mass distal to the angle the mandible, lateral to the hyoid cartilage, along the anterior margin of the sternocleidomastoid muscle. Wall thickness up to 4.9 mm. Process measures approximately 1.8 cm craniocaudal, 1.8 cm transverse, 2.9 cm anterior-posterior. Posteriorly and deep to the sternomastoid muscle, single mildly enlarged lymph node measuring 1.2 x 1.6 cm. A few additional shotty lymph nodes are present on the left. Normal thyroid. Normal submandibular glands and parotid glands. There is no right cervical lymphadenopathy. Pharyngeal and laryngeal soft tissues appear normal. Multilevel cervical spondylosis with disc disease most notable at C5-C6 with uncovertebral joint hypertrophy contributing to mild foraminal narrowing. Mucoperiosteal thickening and mucous retention cysts of the maxillary sinuses. Solitary opacified posterior right ethmoid sinus. Mastoid air cells and middle ear cavities clear. 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 December 17, 2018 CT chest: FINDINGS: Supraclavicular: No acute process within the [id number]. Body wall soft tissues: No acute process. Upper abdomen: No acute process. Osseous structures: No acute process. Mild scoliosis, moderate kyphosis, mild multilevel thoracic spondylosis. Mediastinum: No acute process. Cardiovascular: No acute process. Lungs: A few small scattered pulmonary nodules are present. The largest is in the right upper lobe anterior segment, series 6 image 73, 5 cm, solid features, smooth margins. Unremarkable airways. IMPRESSION: No acute thoracic process is evident. Small pulmonary nodules. The largest measures approximately 5 mm. Follow-up low-dose CT chest is recommended in 1 year for pulmonary nodule surveillance purposes. December 22, 2018 DIAGNOSIS CYTOLOGY A. 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 See comment. B. 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 ANTIBODY / CLONE RESULT Block A AE1-3 (AE1/AE3/PCK26) positive CK7 (OV-TL12/30) negative CK8 (67zofsH03) positive, weak CK20 (KS20.8) negative TTF-1 (8G7G3/1) negative Napsin A (Rabbit Polyclonal) negative HepPar (OCh1E5) negative RCC (PN-15) negative PSAP (PASE/4LJ) negative CK5-6 (D5 AND 1684) positive P16 (E6H4) negative P40 (BC28) positive, focal January 02, 2019: Patient was evaluated by ENT : oral and oropharyngeal mucosa were normal. Flexible laryngoscopy was performed which demonstrated no evidence of lesion. Small cystic lesion of the uvula was felt to be benign. January 05, 2019 PET/CT: IMPRESSION: 1. ABNORMAL EXAMINATION INDICATIVE OF MALIGNANT-VIABLE NEOPLASM. 2. Increased glucose concentration observed in the left lateral neck fulfills quantitative criteria for viable neoplasm. 3. Asymmetric enhanced FDG distribution noted in the left pharyngeal mucosal space may be further investigated with rigorous clinical examination. 4. No other quantitatively significant hypermetabolic abnormalities are noted. There is no definitive scintigraphic evidence of distant metastatic disease. January 30, 2019: left tonsil excision and uvula excision. Pathology displayed no evidence of malignancy or high-grade squamous dysplasia. There was noted to be submucosal dilated minor salivary gland duct with oncocytic metaplasia in the uvula. In preparation for locoregional combined chemoradiation patient Patient underwent multiple dental extractions, placement of PEG tube and port. February 10 through March 25, 2019 combined modality therapy (see below for details) May 13, 2019: CT chest: Comparison is made with prior study in December 17, 2018 There is persistent multifocal nodular pleural thickening or tiny pleural-based nodules in the lower lobes which are unchanged in size or number since previous study. The dominant nodule in the right lower lobe is not changed appreciably in size since prior exam June 29, 2019 PET/CT: IMPRESSION: 1. NEGATIVE EXAMINATION. There is no definitive quantitative scintigraphic evidence of recurrent-metastatic viable neoplasm. 2. There is interval metabolic resolution of the previously identified left lateral neck and left pharyngeal mucosal space hypermetabolic abnormalities. 3. Overall, compared to the prior FDG PET study dated 01/05/19, there is current absence of defined viable neoplastic disease with interval resolution of the prior defined hypermetabolic foci, as articulated above. October 07, 2019 CT chest: IMPRESSION: Normal enhanced CT Chest examination. Treatment summary: Combined high-dose cisplatin and radiation January through March 2019: 6996 cGy delivered to gross disease involving the left neck, 5940 cGy to the high risk mucosal sites (entire oropharynx) and high risk lymph node sites (left levels 2-5), and 5412 cGy delivered to the low risk mucosal sites (nasopharynx, larynx, hypopharynx) bilateral high level 2, bilateral supraclavicular fossa, and right neck levels 2-5). The patient did receive concurrent chemotherapy with high dose cisplatin (cycle 1: 02/10, cycle 2: 03/02, cycle 3: 03/23). Date of First Treatment: 02/10/2019 Date of Last Treatment: 03/25/2019 - Past Medical/Social History Past Medical History Cancer: Other Other Cancer History: carcinoma of unknown primary Social History Social History: No changes Smoking Status Former smoker Review of Systems Constitutional:: Reports: Fatigue - On exertion, - - Able to do ADL independently, working part-time, contemplating going full-time by the end of September 2019. Denies: Fever, Sweats, Weight loss, Appetite change, Chills Cardiovascular:: Denies: Chest pain, Palpitations, Dyspnea on exertion, Orthopnea, PND, Shortness of breath Respiratory: Reports: Cough - Chronic, Shortness of breath upon exertion, Sputum production - Chronic, clear. Denies: Hemoptysis, Shortness of Breath, Wheezing Gastrointestinal:: Reports: Dysphagia - Occasionally needs to use sips of water to swallow relatively dry food. Denies: Abdominal pain, Nausea, Vomiting, Diarrhea, Constipation, Hematochezia Genitourinary: Denies: Dysuria, Hematuria, 15, Flank pain Musculoskeletal:: Denies: Back pain, Myalgia, Arthralgia Skin: Denies: Rash, Skin Changes, Wounds Neurological:: Denies: Headache, Dizziness, Visual changes, Tinnitus, Hearing loss Psychiatric: Denies: Anxiety, Depression, Homicidal Ideations, Suicidal Ideations Vital Signs Height 5 ft 6 in Weight: 56.518 kg Weight in Pounds 124.6 lbs BMI 22.6 Pulse Ox 98 - Physical Exam General: Alert, Oriented x3, No apparent distress, - - ECOG 1 HEENT: Atraumatic, PERRLA, EOMI, Normocephalic Oropharynx:: Dry mucosa Neck:: Supple, Trachea midline, - - Port okay. Negative for: JVD, bilateral Cardiac:: Regular rate, Regular rhythm, Normal S1, Normal S2. Negative for: Murmur Lungs: Clear to auscultation, Diminished, Excusion symmetrical. Negative for: Rhonchi, Wheezes Abdomen:: Soft, Non-tender, Non-distended. Negative for: Hepatosplenomegaly Extremities:: Negative for: Cyanosis, Edema Neurological: - - No signs of lateralization, chronic wasting of the first interosseous space muscles predating red devil therapy Skin:: Negative for: Lesions, Rash, Petechiae, Ecchymosis Psychiatric:: Appropriate affect, Euthymic Lymphatics:: Negative for: Cervical lymphadenopathy, Supraclavicular lymphadenopathy Laboratory Data: Laboratory Tests WBC 5.8 (4.4-11.0) K/mm3 RBC 3.80 L (4.6-6.2) M/mm3 Hgb 12.6 L (13.0-16.5) g/dL Hct 35.7 L (40-54) % Diagnostic Data: Diagnostic Data Assessment and Plan 59-year-old male ex-smoker, in addition to excessive alcohol consumption until the diagnosis and start of treatment of 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 Patient is status post tonsillectomies and uveal excision yet no primary identified. Received concomitant chemoradiation January through March 2019 tolerated with expected but no excessive toxicities. He is in complete remission now and is on surveillance with no evidence to suggest cancer recurrence. An indeterminate too small to further characterize lung nodules on initial staging chest CT. Follow-up CT of the chest April 2019 showed stable nodules. PET/CT April 2019 show complete remission of abnormal uptakes and CT chest September 2019 did not show any residual or persistent nodule. Comorbid conditions: Smoking and excessive alcohol until the time of diagnosis of malignancy. Plan: 1- Continued surveillance for head and neck cancer. 2-refer to lung cancer screening register for annual screening to start September 2020. Impression and plan reviewed with patient . Quincy Simpson MD Environmental Services Floor Tech, [facility] Divisions of Medical Oncology AND Hematology Department of Internal Medicine [address] [address] This note was generated using a voice recognition system software. Although it was reviewed by the author prior to finalization, it may still contain incorrect words, spelling, and punctuation that were not noted when reviewing prior to saving. If a clinically significant typo or inaccurately typed phrase is noted, please notify the author. Medications: Prescriptions This Visit Medication Instructions Recorded Thiamine Hydrochloride [Vitamin B1] 1 tab PO DAILY 01/05/19 Primary Care Provider: Kya Gonzalez NP Referring Provider: 10/14/19 1338 <Electronically signed by Quincy Simpson MD> Date Quincy Simpson MD Cosigner Signature: Date (if applicable) CC: DO Kya Jorgensen Start: 10-07-2019 End: 10-07-2019 Chest WITH Contrast Comments: See Note; NOTES: [facility] Imaging Services [address] [place] [id number] Chest WITH Contrast MR#: [id number] Acct: [id number] Name: MY JAMA Rep #: [id number] : 1960 M 59 From: Primo Medina DO PCP: Kya Gonzalez NP-C Status: REG CLI Study: Chest WITH Contrast Date of Exam: 10/07/19 Exam# [id number] Ordering Dr: Quincy Simpson MD STUDY: CT CHEST WITH CONTRAST REASON FOR EXAM: Male, 59 years old. No evidence of carcinoma unknown origin. Neck adenopathy. Patient on chemotherapy. RADIATION DOSAGE (If Supplied By Facility): CTDIvol = ( 8.75 ) mGy, DLP = ( 331.12 ) mGycm TECHNIQUE: Transaxial imaging was performed following intravenous administration of IV 100mL Isovue-300. Multiplanar coronal and sagittal images were reformatted. Individualized dose optimization techniques were used for this CT. COMPARISON: PET/CT scan, June 29, 2019. FINDINGS: Right jugular Port-A-Cath. The lungs are mildly hyperexpanded. There is no focal mass or infiltrate. There is no demonstrated pleural abnormality. Normal heart and pericardium. Normal mediastinum. Normal hilar regions. Normal enhanced pulmonary arteries. Normal aorta arch and descending thoracic aorta. Degenerative changes of the thoracic spine. There is no demonstrated abnormality of the visualized upper abdomen. CT/Chest WITH Contrast IMPRESSION: Normal enhanced CT Chest examination. Electronically Signed: Primo Medina DO at 22:52 EST Tel [phone], Service support , CC: BOOTH CLEANER-C Kya Gonzalez; Quincy Simpson MD Wood Router Hand: Signed Kya Gonzalez Start: 10-01-2019 End: 10-01-2019 Oncology Follow-Up Visit Comments: See Note; NOTES: [facility] Medical Records Department [address] [place] [address] Oncology Follow-Up Visit 10/01/19 1541 MR#: [id number] Acct: [id number] Name: ANAMY W Rep #: [id number] : 1960 59 From: Santiago Sellers DO PCP: Kya Gonzalez, BOOTH CLEANER-C Status: REG RCR Y Location: [facility] Date of Service: 10/01/19 Last Clinic Visit: 07/02/19 Diagnosis: My Jama is a 59-year-old male diagnosed with 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 From 02/10/2019 - 03/25/2019 he received definitive chemoradiation therapy consisting of 6996 cGy in 33 fractions with concurrent high dose cisplatin. History of Present Illness: 04/28/2018: Patient underwent EGD due to odynophagia. This demonstrated significant esophagitis in the distal esophagus measuring 1-2 cm in length. Biopsy was obtained. Duodenum and stomach appeared normal. Pathology demonstrated focal changes suggestive of reflux. 12/15/2018: Patient presented to with a left-sided lump involving his neck which was firm and nontender. This lesion was present for about 3-4 weeks. 12/17/2018: CT neck and chest was completed. There are a few small scattered pulmonary nodules present with the largest in the right upper lobe anterior segment measuring 5 mm with solid features and smooth margins. Recommended to have follow-up low-dose chest CT in 1 year for pulmonary nodule surveillance. There is a rim-enhancing centrally cystic mass distal to the angle of the mandible lateral to the hyoid cartilage along the anterior margin of the sternocleidomastoid muscle with wall thickness up to 4.9 mm. Process measures approximately 1.8 cm craniocaudal and 2 1.8 cm transverse and 2.9 cm AP. Posteriorly and deep to the SCM there is a 1.2 x 1.6 cm mildly enlarged lymph node and a few additional shotty lymph nodes present on the left. No evidence of cervical adenopathy on the right. Pharyngeal and laryngeal soft tissues appear normal. 12/22/2018: Ultrasound-guided FNA of the left neck mass was completed and pathology demonstrated malignant cells consistent with keratinizing squamous cell carcinoma with extensive necrosis, p16 negative. 12/31/2018: Evaluation by medical oncology. Recommended ENT evaluation with panendoscopy and PET/CT for staging. 01/02/2019: Patient was evaluated by ENT. On exam he was noted to have a large fixed left cervical radha conglomerate. Also noted was a 1 cm cystic lesion of the uvula. Otherwise oral and oropharyngeal mucosa were normal. Flexible laryngoscopy was performed which demonstrated no evidence of lesion. Small cystic lesion of the uvula was felt to be benign. 01/05/2019: PET scan was performed which demonstrated 2 separate nodular foci of increased glucose metabolism manifest in the left lateral neck level 3 generating a calculated maximum SUV of 8.6 with the larger soft tissue density demonstrating central photopenia in the largest corresponding lesion measured on CT is 2.8 cm x 3.5 cm. There is asymmetric increased FDG distribution defined in the left pharyngeal mucosal space generating a calculated maximum SUV of 3.4 with a maximum axial diameter of corresponding metabolic abnormality measuring 1.9 cm. There is no evidence of metastatic disease identified. Recommendation is to closely clinically evaluate the left pharyngeal area lesion for primary disease. 01/08/2019: Patient underwent dental extraction of numbers 7 through 13 and #14. 01/13/2019: Patient underwent dental extraction of #6 and 2 through 5, he also completed amalgam fillings of #21 through 22 and 28. Following this procedure he was confirmed to be cleared for radiation therapy. 01/26/2019: Patient underwent placement of PEG tube and port. 01/30/2019: Patient completed left tonsil excision and uvula excision. Pathology displayed no evidence of malignancy or high-grade squamous dysplasia. There was noted to be submucosal dilated minor salivary gland duct with oncocytic metaplasia in the uvula. From 02/10/2019 - 03/25/2019: Received 6996 cGy delivered to gross disease involving the left neck, 5940 cGy to the high risk mucosal sites (entire oropharynx) and high risk lymph node sites (left levels 2-5), and 5412 cGy delivered to the low risk mucosal sites (nasopharynx, larynx, hypopharynx) bilateral high level 2, bilateral supraclavicular fossa, and right neck levels 2-5). Treatment was completed using dose painting IMRT and a single VMAT plan and he received concurrent chemotherapy with high dose cisplatin (cycle 1: 02/10, cycle 2: 03/02, cycle 3: 03/23). 05/13/2019: CT chest was performed. In comparison to the study in November 2018 there is persistent multifocal nodular pleural thickening or tiny pleural-based nodules in the lower lobes which are unchanged in size or number since the previous study. This measures 4 mm. 06/26/2019: Patient underwent swallow study and then had discussion with speech therapy. Recommendations are for a mechanical soft textured and thin liquid diet. Exercises and other strategies were recommended and speech therapy will continue to follow-up. 06/29/2019: PET scan was performed which demonstrated no definitive quantitative scintigraphic evidence of recurrent/metastatic viable neoplasm, overall when compared to the prior PET scan dated 01/05/2019 there is currently an absence of defined viable neoplastic disease with interval resolution of the primary defined hypermetabolic foci. 07/16/2019: Follow up with medical oncology. Plan for surveillance CT chest in 3 months to reassess nonspecific lung nodules. Radiation Treatment History: 1) From 02/10/2019 - 03/25/2019: Received 6996 cGy delivered to gross disease involving the left neck, 5940 cGy to the high risk mucosal sites (entire oropharynx) and high risk lymph node sites (left levels 2-5), and 5412 cGy delivered to the low risk mucosal sites (nasopharynx, larynx, hypopharynx) bilateral high level 2, bilateral supraclavicular fossa, and right neck levels 2-5). Treatment was completed using dose painting IMRT and a single VMAT plan and he received concurrent chemotherapy with high dose cisplatin (cycle 1: 02/10, cycle 2: 03/02, cycle 3: 03/23). Interval History: Patient presents for follow-up about 6 months after completing definitive chemoradiation. Since his last visit he has continued to heal well from previous radiation related toxicities. He denies having any pain with swallowing, this has completely resolved. He can eat all foods except struggle some with swallowing bread. He does have dry mouth and has to drink a lot of fluids while he is eating. He does use Biotene spray for occasional relief. He believes his taste is completely normal. He denies having coughing/choking with swallowing. He continues to do neck and swallowing exercises. He has dentures and denies new dental pain. PEG tube was removed a couple months back and he is doing well without weight loss. He denies worsening hoarseness, headache, otalgia, vision changes, hearing loss, cough, shortness of breath, hemoptysis, focal arm weakness/numbness. He denies headaches, bone pain, or excess fatigue. He completes all activities of daily living without much difficulty. He denies other problems or concerns at this time. I have reviewed the medical, surgical, and other pertinent history in details and have updated medication and allergy information in the electronic medical record. Review of Systems: A 12-point review of systems was completed and was negative except for what is noted in the HPI/Interval History and by the nurse. 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 HEENT: Mucous membranes moist. Evidence of left tonsillectomy extending to the soft palate and including the uvula area appears to be healing well. confluent erythema and mucositis present in the visualized oropharynx. No trismus. Patient has 8 lower teeth remaining which are without caries or infection, remaining teeth were previously removed and gingiva are are well-healed, he has dentures. BOT without firmness or asymmetry. No evidence of recurrence involving the oropharynx including soft palate and bilateral tonsillar fossa. Pupils are equal, round, and reactive to light and accommodation. Extraocular movements are intact. Sclerae are anicteric. NECK: Supple,with no thyromegaly, and non-tender. Trachea midline. The previously noted left neck adenopathy appears to have completely resolved. No erythema or pigmentation changes. Neck range of motion is intact. There are no palpable lymph nodes in the neck or supraclavicular region. Firm scar tissue noted in the anterior neck. CARDIAC: Regular rate and rhythm. Normal S1, S2. No murmurs, rubs, or gallops. PULMONARY/CHEST: Lungs are clear to auscultation and percussion bilaterally. No wheezes, rhonchi, or crackles noted. No increased work of breathing. ABDOMINAL: Abdomen soft, non-tender, non-distended. No hepatomegaly. Normoactive bowel sounds in all four quadrants. No guarding, rebound. BACK: Straight and aligned. No CVA tenderness. Axial skeleton non-tender to percussion. EXTREMITIES: Full range of motion in all four extremities, with normal strength equally and symmetrically. No evidence of edema. No clubbing. NEUROLOGICAL EXAM: Alert and oriented x 3. Cranial nerves II through XII are grossly intact. No focal neurological deficit. Speech is fluent. There is no upper or lower extremity sensory deficit or motor deficit. Muscle strength is 5/5 in all muscle groups. Gait and posture are steady. PSYCHIATRIC: Appropriate mood and affect for the clinical situation. No NPL scope available. 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 From 02/10/2019 - 03/25/2019 he received definitive chemoradiation therapy consisting of 6996 cGy in 33 fractions with concurrent high dose cisplatin. Patient returns about 6 months after completing definitive chemoradiation. He continues to heal well from radiation associated toxicities and has persistent dry mouth and mild persistent skin pigmentation changes. I reviewed the recommended care for these toxicities and likely timing for resolution. No evidence of disease on exam. He will also continue to follow-up with [facility] NURSE for continued improvement of his swallowing. He has been seen by the dentist and has dentures that he reports fit well, he is scheduling q6-month dental cleanings and is using frequent brushing and fluoride. TSH at 1 year. He will have follow-up CT chest next week then follow up with medical oncology, I do not recommend further imaging for the head neck area at this time. I did discuss it is necessary to have close follow-up with myself and ENT for exams. I will have him return to see ENT in 3 months and then me in 6 months. He was in agreement with my recommendations and he was instructed to call with any further questions or concerns in the interim. Santiago Sellers DO, MS Environmental Services Floor Tech, Department of Radiation Oncology [facility] 10/01/19 [id number] <Electronically signed by Santiago Sellers DO> Date Santiago Sellers DO CC: Rachel Brooks MD; Jim Burgos MD; Quincy Simpson MD Signed Kya Gonzalez Start: 07-16-2019 End: 07-16-2019 Oncology Visit Report Comments: See Note; NOTES: [facility] [place] [address] [place] [address] OFFICE VISIT Date of Service: 07/16/19 1356 MR#: [id number] Acct: [id number] Name: MY JAMA Rep #: [id number] : 1960 From: Quincy Simpson MD Age/Sex: 59/M Location: [facility] Status: Signed - Problem List (1) Head and neck cancer Status: Chronic (2) Regional lymph node metastasis present Status: Chronic (3) Lung nodules Status: Chronic - Date of Service Date of Service:: 07/16/19 - Chief Complaint Tongue cancer follow-up - History of Present Illness 58-year-old male smoker and active alcoholic who presented with a painless left neck mass that has progressively increased in size over the course of the past couple of months. December 17, 2018 CT soft tissues of the neck: FINDINGS: There is a rim-enhancing centrally cystic mass distal to the angle the mandible, lateral to the hyoid cartilage, along the anterior margin of the sternocleidomastoid muscle. Wall thickness up to 4.9 mm. Process measures approximately 1.8 cm craniocaudal, 1.8 cm transverse, 2.9 cm anterior-posterior. Posteriorly and deep to the sternomastoid muscle, single mildly enlarged lymph node measuring 1.2 x 1.6 cm. A few additional shotty lymph nodes are present on the left. Normal thyroid. Normal submandibular glands and parotid glands. There is no right cervical lymphadenopathy. Pharyngeal and laryngeal soft tissues appear normal. Multilevel cervical spondylosis with disc disease most notable at C5-C6 with uncovertebral joint hypertrophy contributing to mild foraminal narrowing. Mucoperiosteal thickening and mucous retention cysts of the maxillary sinuses. Solitary opacified posterior right ethmoid sinus. Mastoid air cells and middle ear cavities clear. 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 December 17, 2018 CT chest: FINDINGS: Supraclavicular: No acute process within the [id number]. Body wall soft tissues: No acute process. Upper abdomen: No acute process. Osseous structures: No acute process. Mild scoliosis, moderate kyphosis, mild multilevel thoracic spondylosis. Mediastinum: No acute process. Cardiovascular: No acute process. Lungs: A few small scattered pulmonary nodules are present. The largest is in the right upper lobe anterior segment, series 6 image 73, 5 cm, solid features, smooth margins. Unremarkable airways. IMPRESSION: No acute thoracic process is evident. Small pulmonary nodules. The largest measures approximately 5 mm. Follow-up low-dose CT chest is recommended in 1 year for pulmonary nodule surveillance purposes. December 22, 2018 DIAGNOSIS CYTOLOGY A. 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 See comment. B. 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 ANTIBODY / CLONE RESULT Block A AE1-3 (AE1/AE3/PCK26) positive CK7 (OV-TL12/30) negative CK8 (92knmlV82) positive, weak CK20 (KS20.8) negative TTF-1 (8G7G3/1) negative Napsin A (Rabbit Polyclonal) negative HepPar (OCh1E5) negative RCC (PN-15) negative PSAP (PASE/4LJ) negative CK5-6 (D5 AND 1684) positive P16 (E6H4) negative P40 (BC28) positive, focal January 02, 2019: Patient was evaluated by ENT : oral and oropharyngeal mucosa were normal. Flexible laryngoscopy was performed which demonstrated no evidence of lesion. Small cystic lesion of the uvula was felt to be benign. January 05, 2019 PET/CT: IMPRESSION: 1. ABNORMAL EXAMINATION INDICATIVE OF MALIGNANT-VIABLE NEOPLASM. 2. Increased glucose concentration observed in the left lateral neck fulfills quantitative criteria for viable neoplasm. 3. Asymmetric enhanced FDG distribution noted in the left pharyngeal mucosal space may be further investigated with rigorous clinical examination. 4. No other quantitatively significant hypermetabolic abnormalities are noted. There is no definitive scintigraphic evidence of distant metastatic disease. January 30, 2019: left tonsil excision and uvula excision. Pathology displayed no evidence of malignancy or high-grade squamous dysplasia. There was noted to be submucosal dilated minor salivary gland duct with oncocytic metaplasia in the uvula. In preparation for locoregional combined chemoradiation patient Patient underwent multiple dental extractions, placement of PEG tube and port. February 10 through March 25, 2019 combined modality therapy (see below for details) May 13, 2019: CT chest: Comparison is made with prior study in December 17, 2018 There is persistent multifocal nodular pleural thickening or tiny pleural-based nodules in the lower lobes which are unchanged in size or number since previous study. The dominant nodule in the right lower lobe is not changed appreciably in size since prior exam June 29, 2019 PET/CT: IMPRESSION: 1. NEGATIVE EXAMINATION. There is no definitive quantitative scintigraphic evidence of recurrent-metastatic viable neoplasm. 2. There is interval metabolic resolution of the previously identified left lateral neck and left pharyngeal mucosal space hypermetabolic abnormalities. 3. Overall, compared to the prior FDG PET study dated 01/05/19, there is current absence of defined viable neoplastic disease with interval resolution of the prior defined hypermetabolic foci, as articulated above. Treatment summary: Combined high-dose cisplatin and radiation January through March 2019: 6996 cGy delivered to gross disease involving the left neck, 5940 cGy to the high risk mucosal sites (entire oropharynx) and high risk lymph node sites (left levels 2-5), and 5412 cGy delivered to the low risk mucosal sites (nasopharynx, larynx, hypopharynx) bilateral high level 2, bilateral supraclavicular fossa, and right neck levels 2-5). The patient did receive concurrent chemotherapy with high dose cisplatin (cycle 1: 02/10, cycle 2: 03/02, cycle 3: 03/23). Date of First Treatment: 02/10/2019 Date of Last Treatment: 03/25/2019 - Past Medical/Social History Past Medical History Cancer: Other Other Cancer History: carcinoma of unknown primary Social History Social History: No changes Smoking Status Former smoker Review of Systems Constitutional:: Reports: Fatigue - On exertion, slowly recovering, back to work half-time, - - Dry mouth. Denies: Fever, Sweats, Weight loss, Appetite change, Chills Cardiovascular:: Reports: Dyspnea on exertion. Denies: Chest pain, Palpitations, Orthopnea, PND, Shortness of breath Respiratory: Reports: Shortness of breath upon exertion. Denies: Cough, Hemoptysis, Shortness of Breath, Wheezing Gastrointestinal:: Reports: - - PEG tube is gone and is able to take regular food with some limitations and sips of water. Denies: Abdominal pain, Nausea, Vomiting, Diarrhea, Constipation, Hematochezia Genitourinary: Denies: Dysuria, Hematuria, 15, Flank pain Musculoskeletal:: Denies: Back pain, Myalgia, Arthralgia Skin: Denies: Rash, Skin Changes, Wounds Neurological:: Denies: Headache, Dizziness, Visual changes, Tinnitus, Hearing loss Psychiatric: Denies: Anxiety, Depression, Homicidal Ideations, Suicidal Ideations Vital Signs Height 5 ft 6 in Weight: 55.701 kg Weight in Pounds 122.8 lbs BMI 22.6 Pulse Ox 100 - Physical Exam General: Alert, Oriented x3, No apparent distress, - - ECOG 1, breath smells of cigarette smoke (although he reports he quit) HEENT: Atraumatic, PERRLA, EOMI, Normocephalic Oropharynx:: Dry mucosa Neck:: Supple, Trachea midline, - - Port okay. Negative for: JVD, bilateral Cardiac:: Regular rate, Regular rhythm, Normal S1, Normal S2. Negative for: Murmur Lungs: Clear to auscultation, Excusion symmetrical. Negative for: Rhonchi, Wheezes Abdomen:: Soft, Non-tender, Non-distended, - - PEG tube site healing well after removal. Negative for: Hepatosplenomegaly Extremities:: Negative for: Cyanosis, Edema Neurological: Neuro grossly intact - No lateralization, - - Chronic wasting of small muscles of the hands Skin:: Negative for: Lesions, Rash, Petechiae, Ecchymosis Psychiatric:: Appropriate affect, Euthymic Lymphatics:: Negative for: Cervical lymphadenopathy, Supraclavicular lymphadenopathy Laboratory Data: Laboratory Tests WBC 4.8 (4.4-11.0) K/mm3 RBC 3.89 L (4.6-6.2) M/mm3 Hgb 12.4 L (13.0-16.5) g/dL Hct 35.3 L (40-54) % Diagnostic Data: Diagnostic Data PET, CT Tumor Imaging 06/29/19 08:00 IMPRESSION: 1. NEGATIVE EXAMINATION. There is no definitive quantitative scintigraphic evidence of recurrent-metastatic viable neoplasm. 2. There is interval metabolic resolution of the previously identified left lateral neck and left pharyngeal mucosal space hypermetabolic abnormalities. 3. Overall, compared to the prior FDG PET study dated 01/05/19, there is current absence of defined viable neoplastic disease with interval resolution of the prior defined hypermetabolic foci, as articulated above. Electronic Signature Narendra Weathers D.O. 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 Patient is status post tonsillectomies and uveal excision yet no primary identified. Received concomitant chemoradiation January through March 2019 tolerated with expected but no excessive toxicities. In addition he has indeterminate too small to further characterize lung nodules on chest CT. A follow-up CT of the chest April 2019 showed stable nodules. PET/CT April 2019 show complete remission are of abnormal uptakes. Recovering well from illness and toxicity of treatment and resuming normal life activities (PEG tube removed, back to work part-time) Comorbid conditions: Smoking and excessive alcohol until the time of diagnosis of malignancy. Plan: 1-Surveillance, chest CT to follow-up the nonspecific nodules in 3 months. 2-continue to follow-up with speech therapy and dietary. Impression and plan reviewed with patient . Quincy Simpson MD Environmental Services Floor Tech, [facility] Divisions of Medical Oncology AND Hematology Department of Internal Medicine [address] [id number] This note was generated using a voice recognition system software. Although it was reviewed by the author prior to finalization, it may still contain incorrect words, spelling, and punctuation that were not noted when reviewing prior to saving. If a clinically significant typo or inaccurately typed phrase is noted, please notify the author. Medications: Prescriptions This Visit Medication Instructions Recorded Thiamine Hydrochloride [Vitamin B1] 1 tab PO DAILY 01/05/19 Magic Mouth Wash 15 ml PO Q6H PRN PRN #240 ml 05/19/19 Primary Care Provider: Kya Gonzalez NP Referring Provider: 07/16/19 1453 <Electronically signed by Quincy Simpson MD> Date Quincy Simpson MD Cosigner Signature: Date (if applicable) CC: Kya Gonzalez Start: 07-02-2019 End: 07-02-2019 Oncology Follow-Up Visit Comments: See Note; NOTES: [facility] Medical Records Department [address] [place] [address] Oncology Follow-Up Visit 07/02/19 1412 MR#: [id number] Acct: [id number] Name: MY JAMA Rep #: [id number] : 1960 59 From: Santiago Sellers DO PCP: YARI Pardo Status: REG RCR Y Location: [facility] Date of Service: 07/02/19 Last Clinic Visit: 04/06/19 Diagnosis: My Jama is a 59-year-old male diagnosed with 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 From 02/10/2019 - 03/25/2019 he received definitive chemoradiation therapy consisting of 6996 cGy in 33 fractions with concurrent high dose cisplatin. History of Present Illness: 04/28/2018: Patient underwent EGD due to odynophagia. This demonstrated significant esophagitis in the distal esophagus measuring 1-2 cm in length. Biopsy was obtained. Duodenum and stomach appeared normal. Pathology demonstrated focal changes suggestive of reflux. 12/15/2018: Patient presented to with a left-sided lump involving his neck which was firm and nontender. This lesion was present for about 3-4 weeks. 12/17/2018: CT neck and chest was completed. There are a few small scattered pulmonary nodules present with the largest in the right upper lobe anterior segment measuring 5 mm with solid features and smooth margins. Recommended to have follow-up low-dose chest CT in 1 year for pulmonary nodule surveillance. There is a rim-enhancing centrally cystic mass distal to the angle of the mandible lateral to the hyoid cartilage along the anterior margin of the sternocleidomastoid muscle with wall thickness up to 4.9 mm. Process measures approximately 1.8 cm craniocaudal and 2 1.8 cm transverse and 2.9 cm AP. Posteriorly and deep to the SCM there is a 1.2 x 1.6 cm mildly enlarged lymph node and a few additional shotty lymph nodes present on the left. No evidence of cervical adenopathy on the right. Pharyngeal and laryngeal soft tissues appear normal. 12/22/2018: Ultrasound-guided FNA of the left neck mass was completed and pathology demonstrated malignant cells consistent with keratinizing squamous cell carcinoma with extensive necrosis, p16 negative. 12/31/2018: Evaluation by medical oncology. Recommended ENT evaluation with panendoscopy and PET/CT for staging. 01/02/2019: Patient was evaluated by ENT. On exam he was noted to have a large fixed left cervical radha conglomerate. Also noted was a 1 cm cystic lesion of the uvula. Otherwise oral and oropharyngeal mucosa were normal. Flexible laryngoscopy was performed which demonstrated no evidence of lesion. Small cystic lesion of the uvula was felt to be benign. 01/05/2019: PET scan was performed which demonstrated 2 separate nodular foci of increased glucose metabolism manifest in the left lateral neck level 3 generating a calculated maximum SUV of 8.6 with the larger soft tissue density demonstrating central photopenia in the largest corresponding lesion measured on CT is 2.8 cm x 3.5 cm. There is asymmetric increased FDG distribution defined in the left pharyngeal mucosal space generating a calculated maximum SUV of 3.4 with a maximum axial diameter of corresponding metabolic abnormality measuring 1.9 cm. There is no evidence of metastatic disease identified. Recommendation is to closely clinically evaluate the left pharyngeal area lesion for primary disease. 01/08/2019: Patient underwent dental extraction of numbers 7 through 13 and #14. 01/13/2019: Patient underwent dental extraction of #6 and 2 through 5, he also completed amalgam fillings of #21 through 22 and 28. Following this procedure he was confirmed to be cleared for radiation therapy. 01/26/2019: Patient underwent placement of PEG tube and port. 01/30/2019: Patient completed left tonsil excision and uvula excision. Pathology displayed no evidence of malignancy or high-grade squamous dysplasia. There was noted to be submucosal dilated minor salivary gland duct with oncocytic metaplasia in the uvula. From 02/10/2019 - 03/25/2019: Received 6996 cGy delivered to gross disease involving the left neck, 5940 cGy to the high risk mucosal sites (entire oropharynx) and high risk lymph node sites (left levels 2-5), and 5412 cGy delivered to the low risk mucosal sites (nasopharynx, larynx, hypopharynx) bilateral high level 2, bilateral supraclavicular fossa, and right neck levels 2-5). Treatment was completed using dose painting IMRT and a single VMAT plan and he received concurrent chemotherapy with high dose cisplatin (cycle 1: 02/10, cycle 2: 03/02, cycle 3: 03/23). 05/13/2019: CT chest was performed. In comparison to the study in November 2018 there is persistent multifocal nodular pleural thickening or tiny pleural-based nodules in the lower lobes which are unchanged in size or number since the previous study. This measures 4 mm. 06/26/2019: Patient underwent swallow study and then had discussion with speech therapy. Recommendations are for a mechanical soft textured and thin liquid diet. Exercises and other strategies were recommended and speech therapy will continue to follow-up. 06/29/2019: PET scan was performed which demonstrated no definitive quantitative scintigraphic evidence of recurrent/metastatic viable neoplasm, overall when compared to the prior PET scan dated 01/05/2019 there is currently an absence of defined viable neoplastic disease with interval resolution of the primary defined hypermetabolic foci. Radiation Treatment History: 1) From 02/10/2019 - 03/25/2019: Received 6996 cGy delivered to gross disease involving the left neck, 5940 cGy to the high risk mucosal sites (entire oropharynx) and high risk lymph node sites (left levels 2-5), and 5412 cGy delivered to the low risk mucosal sites (nasopharynx, larynx, hypopharynx) bilateral high level 2, bilateral supraclavicular fossa, and right neck levels 2-5). Treatment was completed using dose painting IMRT and a single VMAT plan and he received concurrent chemotherapy with high dose cisplatin (cycle 1: 02/10, cycle 2: 03/02, cycle 3: 03/23). Interval History: Patient presents for follow-up about 3 months after completing definitive chemoradiation. Since his last visit he has continued to heal very well from previous radiation related toxicities. He has a very mild residual discomfort occasionally with swallowing in the left throat but otherwise all previous pain has completely resolved and he is not taking any pain medication. He has persistent dry mouth which has mildly improved, he is just using water and occasional Biotene for relief. He believes taste changes have greatly improved since the completion of treatment and he can taste most foods at this time. He has been eating a regular diet other than having some difficulty with breads. He denies odynophagia or dysphasia. He also denies coughing or choking with swallowing. He has not used his PEG tube in over 1 month and has maintained his weight. Continues to use Mucinex for thickened saliva. He believes his previously noted skin erythema/irritation has greatly healed, still has some skin dryness and actually some areas of hypo-and hyper pigmentation. Neck adenopathy is completely responded and he has not noticed any nodularity or tumor recurrence. He continues to have mild hoarseness. He denies headache, otalgia, vision changes, decreased hearing, cough, shortness of breath, hemoptysis, focal arm weakness/numbness. He denies having other problems or concerns at this time. I have reviewed the medical, surgical, and other pertinent history in details and have updated medication and allergy information in the electronic medical record. Review of Systems: A 12-point review of systems was completed and was negative except for what is noted in the HPI/Interval History and by the nurse. Height/Weight/BMI: Height: 5 ft 6 in Weight: 121 lbs (weight at end of [employer] 03/25/2019: 126.6 lbs) Vital Signs Temperature 100.3 F H 04/06/19 10:24 Temperature Source Oral 04/06/19 10:24 Pulse Rate 99 04/06/19 10:24 Respiratory Rate 16 04/06/19 10:24 Physical Exam: ECO [place] SCORE: 70-80% CONSTITUTIONAL: Well-developed, well-nourished, and in no apparent distress. HEENT: Mucous membranes moist. Evidence of left tonsillectomy extending to the soft palate and including the uvula area appears to be healing well. confluent erythema and mucositis present in the visualized oropharynx. No trismus. Patient has 8 lower teeth remaining which are without caries or infection, remaining teeth were previously removed and gingiva are are well-healed, he has dentures. BOT without firmness or asymmetry. No evidence of recurrence involving the oropharynx including soft palate and bilateral tonsillar fossa. Pupils are equal, round, and reactive to light and accommodation. Extraocular movements are intact. Sclerae are anicteric. NECK: Supple,with no thyromegaly, and non-tender. Trachea midline. The previously noted left neck adenopathy appears to have completely resolved. There is residual left neck hyperpigmentation and also a portion of hypopigmentation. Neck range of motion is intact. There are no palpable lymph nodes in the neck or supraclavicular region. CARDIAC: Regular rate and rhythm. Normal S1, S2. No murmurs, rubs, or gallops. PULMONARY/CHEST: Lungs are clear to auscultation and percussion bilaterally. No wheezes, rhonchi, or crackles noted. No increased work of breathing. ABDOMINAL: Abdomen soft, non-tender, non-distended. No hepatomegaly. Normoactive bowel sounds in all four quadrants. No guarding, rebound. BACK: Straight and aligned. No CVA tenderness. Axial skeleton non-tender to percussion. EXTREMITIES: Full range of motion in all four extremities, with normal strength equally and symmetrically. No evidence of edema. No clubbing. NEUROLOGICAL EXAM: Alert and oriented x 3. Cranial nerves II through XII are grossly intact. No focal neurological deficit. Speech is fluent. There is no upper or lower extremity sensory deficit or motor deficit. Muscle strength is 5/5 in all muscle groups. Gait and posture are steady. PSYCHIATRIC: Appropriate mood and affect for the clinical situation. PROCEDURE PERFORMED: Right Flexible [id number]-[id number]. CONSENT: Verbal informed consent was obtained prior to the procedure after discussion of risks, benefits, and alternatives and expected outcomes were discussed with the patient. ANESTHESIA: Topical anesthesia administered: Topical Benzocaine 2 sprays given. 5 minutes was allowed for anesthesia PROCEDURE DETAILS: Right nostril was prepared with topical anesthesia without difficulty, a flexible laryngoscope was advanced through the nostril to sequentially examine the nasopharynx, palate, oropharynx, and base of the tongue, epiglottis, larynx, hypopharynx and pyriform sinuses. There were no masses or lesions visible in the nasal cavity or nasopharynx. As the scope was advanced distally, the larynx and hypopharynx were examined. There is residual swelling involving the epiglottis and some mild pooling of secretions in the vallecula. Vocal cord mobility is normal bilaterally. There are no lesions involving the larynx or hypopharynx. The scope was withdrawn and removed. There was no bleeding noted from the nostril. Patient tolerated the procedure well. 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 From 02/10/2019 - 03/25/2019 he received definitive chemoradiation therapy consisting of 6996 cGy in 33 fractions with concurrent high dose cisplatin. Patient returns about 3 months after completing definitive chemoradiation. He is healed very well from radiation related toxicities but does have some continued skin pigmentation changes, dry mouth, mild taste changes, and very mild soreness with swallowing. I reviewed recommended care for these toxicities and they are likely timing for resolution. He has no evidence of disease on exam and PET scan completed on 06/29/2019 demonstrated no evidence of disease. He is eating well and will have his PEG tube removed next week. He will also continue to follow-up with [facility] NUR[facility] for continued improvement of his swallowing. He has been seen by the dentist and has dentures that he reports fit well, he is scheduling q6-month dental cleanings and is using frequent brushing and fluoride. TSH at 1 year. He will have continued follow-up CT chest per medical oncology, I do not recommend further imaging for the head neck area at this time. I did discuss it is necessary to have close follow-up with myself and ENT for exams. I will have him return to see ENT in 3 months and then me in 6 months. He was in agreement with my recommendations and he was instructed to call with any further questions or concerns in the interim. Santiago Sellers DO [employer] Floor [employer], Department of Radiation Oncology [facility] 07/02/19 6260 <Electronically signed by Santiago Sellers DO> Date Santiago Sellers DO CC: Rachel Brooks MD; Jim Burgos MD; Quincy Simpson MD Signed Kya Gonzalez Start: 06-29-2019 PET/CT Tumor Base -Thigh Subs [employer]-C Kya Gonzalez [employer] Work Phone: Start: 06-26-2019 End: 06-26-2019 Modified Barium Swallow Study Comments: See Note; NOTE S: [facility] Speech Pathology [address] [place] [address] Modified Barium Swallow Study MR#: [id number] Acct: [id number] Name: MY JAMA Rep #: [id number] : 1960 59 From: Diomedes Bentley M.A., [facility] REG[facility] NURSE PRIMARY / SECONDARY DIAGNOSIS: dysphagia (R13.12) REFERRING PHYSICIAN: Dr. 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 PREVIOUS MODIFIED BARIUM SWALLOW STUDY: None. ASSESSMENT PARAMETERS: The Patient participated in a Modified Barium Swallow (MBS) study on 06/26/2019. Dr. Reeves was the radiologist present for this evaluation. This study was recorded in the lateral view and images were sent to PACs for storage. Scoring was completed through each trial using the 8-point Penetration-Aspiration Scale (PAS) and Videofluoroscopic Scale Score (VSS), and summarized via the Modified Barium Swallow Impairment Profile (MBSImP) and the Bolus Residue Scale (BRS), with severity scoring through the Dysphagia Severity Rating Scale (DSRS), the Swallowing Performance Scale (PSP), and the Dynamic Imaging Grade of Swallowing Toxicity (DIGEST), and recommended diet textures through the International Dysphagia Diet Standardisation Initiative (IDDSI). 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 SUPPLEMENTARY DYSPHAGIA ASSESSMENT RESULTS: Total Dysphagia Risk Score (TDRS): 21 - High risk (TDRS > 18) OBJECTIVE ASSESSMENT OF SWALLOW FUNCTION (QUANTITATIVE PER TRIAL): PENETRATION / ASPIRATION SCALE (SENIOR): 1 = does not enter airway 2 = enters airway/above vocal folds/ejected 3 = enters airway/above vocal folds/not ejected 4 = enters airway/contacts vocal folds/ejected 5 = enters airway/contacts vocal folds/not ejected 6 = enters airway/below vocal folds/ejected 7 = enters airway/below vocal folds/not ejected despite effort 8 = enters airway/below vocal folds/no effort VIDEOFLOROSCOPIC SCALE SCORE (SENIOR): Grade I = aspiration of material that has penetrated into the laryngeal vestibule, intact cough reflex Grade II = aspiration < 10 % of the bolus, intact cough reflex Grade III = aspiration of < 10 % of the bolus, reduced cough reflex or aspiration of > 10 % of the bolus, intact cough reflex Grade IV = aspiration of > 10 % of the bolus, reduced cough reflex PENETRATION / ASPIRATION SCALE (SCORE) WITH VIDEOFLOROSCOPIC SCALE SCORE: Thin liquid - 5 mL tsp.: 1 Thin liquids via cup (single sip): 1 Thin liquids via cup (single sip): 1 Thin liquids via cup (single sip): 1 Thin liquids via cup (sequential swallows): 3 Thin liquids via straw (sequential swallows): 5 Pudding via spoon: 1, 8* Grade III Regular textured cookie: 1 Thin liquids via straw (chaser): 7 Grade III Thin liquids via straw (chin tuck): 1 Thin liquids via straw (chin tuck): 1 Thin liquids via straw (chin tuck): 1 Oppelo thickened liquids via straw (single sip): 1 Oppelo thickened liquids via straw (single sip): 1 Oppelo thickened liquids via straw (single sip): 1 * denotes progression and minimal aspiration of previously penetrated thin liquids. OBJECTIVE ASSESSMENT OF SWALLOW FUNCTION (QUANTITATIVE AGGREGATE): MODIFIED BARIUM SWALLOW IMPAIRMENT PROFILE (MBSImP) LABIAL SEAL: 0 (of 4) no labial escape TONGUE CONTROL: 1 (of 3) lateral buccal cavity / floor of mouth BOLUS PREPARATION / MASTICATION: 0 (of 3) timely and efficient BOLUS TRANSPORT / LINGUAL MOTION: 0 (of 4) brisk tongue motion ORAL RESIDUE: 1 (of 4) trace residue lining oral structures INITIATION OF PHARYNGEAL SWALLOW: 1 (of 4) valleculae SOFT PALATE ELEVATION: 0 (of 4) no bolus between soft palate AND pharyngeal wall LARYNGEAL ELEVATION: 1 (of 3) partial superior movement / approximation ANTERIOR HYOID EXCURSION: 1 (of 2) partial movement EPIGLOTTIC MOVEMENT: 1 (of 2) partial inversion LARYNGEAL VESTIBULE CLOSURE: 1 (of 2) incomplete closure PHARYNGEAL STRIPPING WAVE: 1 (of 2) present / diminished PE SEGMENT OPENIN (of 3) partial distension / duration / obstruction TONGUE BASE RETRACTION: 3 (of 4) wide column of contrast PHARYNGEAL RESIDUE: 2 (of 4) collection of residue ESOPHAGEAL BOLUS CLEARANCE: could not view BOLUS RESIDUE SCALE (BRS): 4 (of 6) residue in valleculae and piriform sinus DYSPHAGIA SEVERITY RATING SCALE (DSRS): 4 (moderate) SWALLOWING PERFORMANCE SCALE (SPS): 5 (moderate) DYNAMIC IMAGING GRADE OF SWALLOWING TOXICITY (DIGEST) DIGEST SAFETY GRADE: Grade 2 (PAS 7-8 = intermittent, not gross) DIGEST EFFICIENCY GRADE: Grade 2 (50-90%; majority residue; solids) SUMMARY DIGEST GRADE: Grade 2 (moderate) OBJECTIVE ASSESSMENT OF SWALLOW FUNCTION (QUALITATIVE): ORAL PREPARATORY PHASE: competent bolus manipulation despite upper edentulous status; sufficient anterior oral containment during presentation / manipulation; preserved management of breathing / bolus formation without disrupted E S E pattern ORAL TRANSITIONAL PHASE: sufficient bolus transportation; no lingual discoordination (no tremor / undulations); somewhat fragmented swallowing (piecemeal deglutition) with solid textures; sufficient oral clearance; no presence of premature posterior bolus loss; sufficient oral containment across textures. PHARYNGEAL PHASE: no signs of pharyngeal dyssynchrony; reduced hyolaryngeal excursion and duration with inconsistent laryngeal vestibule pressure generated to expel penetrated material; pharyngeal dysmotility most prominently with more viscous textures attributed to incomplete epiglottic deflection in combination with reduced tongue based retraction / posterior pharyngeal stripping wave action, with consolidation primarily within the vallecula; given the recency of the Patients pharyngeal irradiation his pharyngeal motility is rather functional at this phase of the intervention cycle; no signs of velopharyngeal impairments; ESOPHAGEAL PHASE: no obvious esophageal phase abnormalities observed. CONTRIBUTING / COMPLICATING FACTORS AND NOTABLE FINDINGS: sufficient / strong cued volitional cough intensity to expel penetrated material / laryngotracheal aspiration; small non-obstructive cricopharyngeal bar located at the C-7 level. RESPONSE TO STRATEGIES: all deficits managed successfully with reduction in bolus rate / volume adjustments, execution of the chin tuck posture with use of a straw, execution of a liquid wash following solid ingestion, and diet texture / viscosity adjustments. DYSPHAGIA ASSOCIATED MEDICAL CONSIDERATIONS / INTERVENTION CONSIDERATIONS: The Patient was noted to SILENTLY aspirate with very scant quantities of previously penetrated thin liquids (less than 5% of any bolus), with clinical assessment at bedside relying on identification of classic overt signs and symptoms of aspiration considered unreliable, though it is important to note that he did demonstrate an overt reaction to larger bolus volumes of thin liquids (>5% of the bolus). The Patient does express a desire to advance with thin liquids given the functional improvements in tolerance with execution of the chin tuck posture in conjunction with reductions in bolus volumes, which is reasonable given his overall improved medical condition, maintained ambulatory abilities, and strong dedication to all recommendations that have been made throughout the intervention cycle that would suggest a higher likelihood for compliance and sufficient execution.I recommend a repeat modified barium swallow study within 2 - 4 months (if clinically appropriate) to further assess the presence and extent of post irradiation dysphagia and presence / extent of silent and overt aspiration, as continued changes in the swallow pattern post irradiation remains high. I would consider the Patient to be at a higher risk of aspiration related medical complications / aspiration pneumonia / aspiration related pulmonary syndrome secondary to the diagnosis of oropharyngeal cancer status post chemoradiation, presence of dysphagia with pharyngeal phase impairment and silent aspiration identified under fluoroscopy, upper edentulous status, and intermittent tube feeding use. Would consider the Patent to be at a higher risk of oropharyngeal colonization with respiratory pathogens secondary to the Patient s recent poor nutritional status, xerostomia, recent use of antibiotics possibly provoking a variety of respiratory alida, placement on alternative means of nutrition, and prevalence of gastroesophageal reflux disease. Aspiration of saliva contaminated with pathogens can lead to pulmonary infections, with creation, implementation, and adherence to an aggressive oral and dental care program is essential. Will continue to recommend an aggressive oral care program that includes pre-rinse use prior to water intake; routine oral care / denture care in the a.m., prior to oral intake, after oral intake, and prior to bed via toothbrush / swab / rinse; use of oral moisturizers as needed to reduce impact of xerostomia; and frequent dental checkups. INTERVENTION RECOMMENDATIONS AND CONSIDERATIONS: The Patient requires continued skilled speech-language intervention targeting diet texture management and training / implementation of recommended compensatory strategies; continued training and implementation of a home based prophylactic swallowing exercise program to promote the highest level of preserved post-irradiation swallow functioning; continued training and implementation of a home oral care protocol to reduce the effects of xerostomia and improve / maintain the integrity of the oral mucosa reducing the risk of aspiration related pulmonary complications; and continued Patient education regarding candace and post-irradiation dysphagia and associated symptomology; POST ASSESSMENT EDUCATION: Results and recommendations were discussed with the Patient immediately following MBS completion, with the Patient verbalizing understanding and agreement with all recommendations and education provided. We discussed factors impacting effects of aspiration, to include: the quantity of aspiration, the depth of aspiration (trachea or distal airways), and the physical properties of the aspirate. We further discussed consequences of oropharyngeal dysphagia, to include pulmonary complications from tracheobronchial aspiration; potential for airway obstruction / asphyxiation; inadequate oral intake because of dysphagia; reduced liquid intake resulting in dehydration; reduced caloric intake resulting in unintentional and potentially medically complicating loss of weight; impairment in mental and physical condition that can include deterioration in the quality of life, and increased risk for mortality / . I provided brief overview of signs and symptoms of aspiration, with recommendations for the Patient to further discuss symptoms with the Patients primary care provider. DIET TEXTURE RECOMMENDATIONS: Will recommend a mechanical soft textured (IDDSI: 5), thin liquid diet (IDDSI: 0) diet RECOMMENDED COMPENSATORY STRATEGIES: Consider cutting tougher textures into bite sized pieces, execution of the chin tuck posture via straw with liquids, reduced bolus volume / rate of ingestion, liquid chaser at reasonable intervals, seated upright at 90 degrees during PO intake, remain upright for 30-60 minutes post meal (GERD precaution), medications one at a time with purees. IMAGE COUNT: [id number] Diomedes Bentley M.A., MARCIA-ADVANCED PRACTICE REGISTERED NURSE, CBIS MBSImP Certified, LSVT Certified [facility] Speech-Language Pathology Department [email or web address] 06/26/19 0608 <Electronically signed by Diomedes Bentley M.A., CCC-ADVANCED PRACTICE REGISTERED NURSE> Date Diomedes Bentley M.A., CCC-ADVANCED PRACTICE REGISTERED NURSE Co-Signature Required for all Medicare patients Date/Time _ Co-Signature CC: Kya Gonzalez Start: 06-26-2019 End: 06-26-2019 Swallowing Function w/Video Comments: See Note; NOTES: [facility] Imaging Services [address] [address] Swallowing Function w/Video MR#: [id number] Acct: [id number] Name: MY JAMA Rep #: [id number] : 1960 M 59 From: Bib Reeves MD PCP: Kya Gonzalez, BOOTH CLEANER-C Status: REG CLI Study: Swallowing Function w/Video Date of Exam: 06/26/19 Exam# [id number] Ordering Dr: Santiago Sellers DO STUDY: SWALLOWING STUDY REASON FOR EXAM: Male, 59 years old. Dysphagia. Abdomen neck cancer. TECHNIQUE: The examination was performed with Speech Pathology in attendance. Under fluoroscopic observation, the patient ingested thin barium, thick barium, barium pudding, and barium coated cracker. FLUOROSCOPY TIME: 2:34 minutes/seconds. 2172 fluoroscopic images were obtained. RADIOLOGIST INVOLVEMENT: Radiologist was present and providing direct supervision. COMPARISON: None. FINDINGS: The following was observed during swallowing of the various mixtures of barium: Thin Barium: Aspiration with ingestion of thin liquids. This is improved with the chin tuck maneuver. Thick Barium: There was no evidence of aspiration or laryngeal penetration. Barium Pudding: There was no evidence of aspiration or laryngeal penetration. Barium Coated Cracker: There was no evidence of aspiration or laryngeal penetration. RAD/Swallowing Function w/Video IMPRESSION: Aspiration with ingestion of thin liquids. This improved with the chin tuck maneuver. The swallow study findings were discussed with the patient by the speech pathologist at the conclusion of the examination. Please see speech pathology report for more information and recommendations. Electronically Signed: Bib Lala, at 14:50 EDT , Service support , CC: YARI Gonzalez; Santiago Sellers DO Wood Router Hand: Signed Kya Gonzalez Start: 06-26-2019 End: 06-30-2019 PET/CT Tumor Base -Thigh Subs Comments: See Note; NOTE S: [facility] Imaging Services [address] [place] [id number] PET/CT Tumor Base -Thigh Subs MR#: [id number] Acct: [id number] Name: MY JAMA Rep #: [id number] : 1960 M 59 From: Narendra Weathers DO PCP: YARI Pardo Status: REG RCR Study: PET/CT Tumor Base -Thigh Subs Date of Exam: 06/29/19 Exam# [id number] Ordering Dr: Quincy Simpson MD EXAMINATION: FDG PET CT INDICATIONS: A 59-year-old male with reported history of head and neck carcinoma presenting for restaging examination. COMPARISON EXAMINATION: Previous FDG PET study dated 01/05/19, CT of the chest report dated 05/13/19. TECHNIQUE: Following the intravenous administration of 13.08 mCi of F-18 deoxyglucose via the left antecubital fossa, multiplanar image acquisitions of the head, neck, chest, abdomen and pelvis to level of mid thigh, obtained at one hour post radiopharmaceutical administration contemporaneously interpreted with the current CT of the head, neck, chest, abdomen and pelvis to level of mid thigh, dated 06/29/19 via coregistration and previous FDG PET study dated 01/05/19, CT of the chest report dated 05/13/19 reveal: SERUM GLUCOSE LEVEL: 96 mg/dl. HEIGHT: 66 inches. WEIGHT: 125 lbs. FINDINGS: 1. There is no quantitative scintigraphic evidence of abnormal increased glucose metabolism on meticulous inspection of whole body acquisitions to include all three axis reconstructions. 2. Normal physiologic distribution of the radiopharmaceutical is apparent in the hepatic and splenic parenchyma, both renal units, bladder and visualized intestinal tract. There is symmetric glucose metabolism identified in the occipital, parietal, temporal and frontal lobes of the cerebral cortex, with normal visualization of the cerebellar hemispheres and basal ganglia. Diffuse intestinal tract activity is noted throughout all four quadrants of the abdominal-pelvic retroperitoneum, mesentery consistent with normal physiologic distribution of the radiopharmaceutical. The previously identified hypermetabolic focus noted in the left lateral neck, as well as left pharyngeal mucosal space defined on the FDG PET study dated 01/05/19 is not apparent on the current examination. Prominent radiopharmaceutical concentration is demonstrated in the left lower pelvic mesentery, which appears contiguous to the distal left ureter consistent with physiologic distribution of the radiopharmaceutical. Facilitated uptake is demonstrates in the ascending and descending thoracic aorta commensurate with activated leukocytes associated with atherosclerotic plaque formation. (Claudia et al, Clinical Nuclear Medicine 29:93, 2004). Focal increased radiopharmaceutical concentration is manifest in the upper anterior paramedian abdominal wall most consistent with postsurgical change attributed to apparent feeding tube placement. Ilan-R-Xojs-MediPort placement is noted. The prior defined morphologic-anatomic changes noted on CT of the neck, chest, abdomen and pelvis manifest on the FDG PET CT study dated 01/05/19 are essentially unchanged on the present examination. PET/PET/CT Tumor Base -Thigh Subs IMPRESSION: 1. NEGATIVE EXAMINATION. There is no definitive quantitative scintigraphic evidence of recurrent-metastatic viable neoplasm. 2. There is interval metabolic resolution of the previously identified left lateral neck and left pharyngeal mucosal space hypermetabolic abnormalities. 3. Overall, compared to the prior FDG PET study dated 01/05/19, there is current absence of defined viable neoplastic disease with interval resolution of the prior defined hypermetabolic foci, as articulated above. Electronic Signature Narendra Black, D.O. Electronically Signed: Narendra Weathers DO at 23:34 EDT Tel , Service support , CC: YARI Gonzalez; Quincy Simpson MD Wood Router Hand: Signed Kya Gonzalez Start: 06-08-2019 End: 06-08-2019 Oncology Visit Report Comments: See Note; NOTES: [facility] [address] [place] [address] OFFICE VISIT Date of Service: 06/08/19 1312 MR#: [id number] Acct: [id number] Name: MY JAMA Rep #: [id number] : 1960 From: Marce BUNN Age/Sex: 58/M Location: OMD Status: Signed Subjective - Date of Service Date of Service:: 06/08/19 - Chief Complaint Survivorship Visit - History of Present Illness 58-year-old male smoker and active alcoholic who presented with a painless left neck mass that has progressively increased in size over the course of the past couple of months. December 17, 2018 CT soft tissues of the neck: FINDINGS: There is a rim-enhancing centrally cystic mass distal to the angle the mandible, lateral to the hyoid cartilage, along the anterior margin of the sternocleidomastoid muscle. Wall thickness up to 4.9 mm. Process measures approximately 1.8 cm craniocaudal, 1.8 cm transverse, 2.9 cm anterior-posterior. Posteriorly and deep to the sternomastoid muscle, single mildly enlarged lymph node measuring 1.2 x 1.6 cm. A few additional shotty lymph nodes are present on the left. Normal thyroid. Normal submandibular glands and parotid glands. There is no right cervical lymphadenopathy. Pharyngeal and laryngeal soft tissues appear normal. Multilevel cervical spondylosis with disc disease most notable at C5-C6 with uncovertebral joint hypertrophy contributing to mild foraminal narrowing. Mucoperiosteal thickening and mucous retention cysts of the maxillary sinuses. Solitary opacified posterior right ethmoid sinus. Mastoid air cells and middle ear cavities clear. 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 December 17, 2018 CT chest: FINDINGS: Supraclavicular: No acute process within the [id number]. Body wall soft tissues: No acute process. Upper abdomen: No acute process. Osseous structures: No acute process. Mild scoliosis, moderate kyphosis, mild multilevel thoracic spondylosis. Mediastinum: No acute process. Cardiovascular: No acute process. Lungs: A few small scattered pulmonary nodules are present. The largest is in the right upper lobe anterior segment, series 6 image 73, 5 cm, solid features, smooth margins. Unremarkable airways. IMPRESSION: No acute thoracic process is evident. Small pulmonary nodules. The largest measures approximately 5 mm. Follow-up low-dose CT chest is recommended in 1 year for pulmonary nodule surveillance purposes. December 22, 2018 DIAGNOSIS CYTOLOGY A. 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 See comment. B. 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 ANTIBODY / CLONE RESULT Block A AE1-3 (AE1/AE3/PCK26) positive CK7 (OV-TL12/30) negative CK8 (85uuriJ71) positive, weak CK20 (KS20.8) negative TTF-1 (8G7G3/1) negative Napsin A (Rabbit Polyclonal) negative HepPar (OCh1E5) negative RCC (PN-15) negative PSAP (PASE/4LJ) negative CK5-6 (D5 AND 1684) positive P16 (E6H4) negative P40 (BC28) positive, focal January 02, 2019: Patient was evaluated by ENT : oral and oropharyngeal mucosa were normal. Flexible laryngoscopy was performed which demonstrated no evidence of lesion. Small cystic lesion of the uvula was felt to be benign. January 05, 2019 PET/CT: IMPRESSION: 1. ABNORMAL EXAMINATION INDICATIVE OF MALIGNANT-VIABLE NEOPLASM. 2. Increased glucose concentration observed in the left lateral neck fulfills quantitative criteria for viable neoplasm. 3. Asymmetric enhanced FDG distribution noted in the left pharyngeal mucosal space may be further investigated with rigorous clinical examination. 4. No other quantitatively significant hypermetabolic abnormalities are noted. There is no definitive scintigraphic evidence of distant metastatic disease. January 30, 2019: left tonsil excision and uvula excision. Pathology displayed no evidence of malignancy or high-grade squamous dysplasia. There was noted to be submucosal dilated minor salivary gland duct with oncocytic metaplasia in the uvula. In preparation for locoregional combined chemoradiation patient Patient underwent multiple dental extractions, placement of PEG tube and port. February 10 through March 25, 2019 combined modality therapy (see below for details) May 13, 2019: CT chest: Comparison is made with prior study in December 17, 2018 There is persistent multifocal nodular pleural thickening or tiny pleural-based nodules in the lower lobes which are unchanged in size or number since previous study. The dominant nodule in the right lower lobe is not changed appreciably in size since prior exam Treatment summary: Combined high-dose cisplatin and radiation January through March 2019: 6996 cGy delivered to gross disease involving the left neck, 5940 cGy to the high risk mucosal sites (entire oropharynx) and high risk lymph node sites (left levels 2-5), and 5412 cGy delivered to the low risk mucosal sites (nasopharynx, larynx, hypopharynx) bilateral high level 2, bilateral supraclavicular fossa, and right neck levels 2-5). The patient did receive concurrent chemotherapy with high dose cisplatin (cycle 1: 02/10, cycle 2: 03/02, cycle 3: 03/23). Date of First Treatment: 02/10/2019 Date of Last Treatment: 03/25/2019 - Interval History The patient is presenting to clinic accompanied by spouse to review treatment summary and discuss his survivorship care plan. Plans swallow study on Saturday and follow up with speech after. Taking soft foods, oatmeal, noodles three times daily and using 4 cans of Isosource in between. - Past Medical/Social History Past Medical History Cancer: Other Other Cancer History: carcinoma of unknown primary Social History Social History: No changes Smoking Status Former smoker Review of Systems Constitutional:: Denies: Fever, Sweats, Weight loss, Appetite change, Chills Cardiovascular:: Denies: Chest pain, Palpitations, Dyspnea on exertion, Orthopnea, PND, Shortness of breath Respiratory: Denies: Cough, Hemoptysis, Shortness of Breath, Wheezing Gastrointestinal:: Denies: Abdominal pain, Nausea, Vomiting, Diarrhea, Constipation, Hematochezia Genitourinary: Denies: Dysuria, Hematuria, 15, Flank pain Musculoskeletal:: Denies: Back pain, Myalgia, Arthralgia Skin: Denies: Rash, Skin Changes, Wounds Neurological:: Denies: Headache, Dizziness, Visual changes, Tinnitus, Hearing loss Psychiatric: Denies: Anxiety, Depression, Homicidal Ideations, Suicidal Ideations Vital Signs Height 5 ft 6 in - Physical Exam General: Alert, Oriented x3, No apparent distress HEENT: Atraumatic, Normocephalic, - - wears glasses Oropharynx:: Negative for: Dry mucosa, Ulcerated lesions Neck:: Supple, Trachea midline. Negative for: JVD, bilateral Cardiac:: Regular rate, Regular rhythm, Normal S1, Normal S2. Negative for: Murmur Lungs: Clear to auscultation, Excusion symmetrical. Negative for: Rhonchi, Wheezes, Tachypneic, Increased respiratory effort Abdomen:: Bowel sounds x 4, Soft, Non-tender, Non-distended, - - PEG tube in place. Negative for: Hepatosplenomegaly Extremities:: Clubbing. Negative for: Cyanosis, Edema Neurological: Neuro grossly intact Skin:: Negative for: Lesions, Rash, Petechiae, Ecchymosis Psychiatric:: Appropriate affect, Euthymic Lymphatics:: Negative for: Cervical lymphadenopathy, Supraclavicular lymphadenopathy, Axillary lymphadenopathy Diagnostic Data: Diagnostic Data PET, CT Tumor Imaging 01/05/19 10:00 IMPRESSION: 1. ABNORMAL EXAMINATION INDICATIVE OF MALIGNANT-VIABLE NEOPLASM. 2. Increased glucose concentration observed in the left lateral neck fulfills quantitative criteria for viable neoplasm. 3. Asymmetric enhanced FDG distribution noted in the left pharyngeal mucosal space may be further investigated with rigorous clinical examination. 4. No other quantitatively significant hypermetabolic abnormalities are noted. There is no definitive scintigraphic evidence of distant metastatic disease. Electronic Signature Narendra Weathers D.O. 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 Patient is status post tonsillectomies and uveal excision yet no primary identified. In addition he has indeterminate too small to further characterize lung nodules on chest CT. Received concomitant chemoradiation January through March 2019 tolerated with expected but no excessive toxicities. A follow-up CT of the chest April 2019 showed stable nodules. Recovering from illness and toxicity of treatment, contemplating going back to work as tolerated May 2019. 1. Stage NOREEN, squamous cell carcinoma of the head and neck, unknown primary - Post treatment PET/CT scheduled for June. 2. Survivorship care- Reviewed treatment summary and survivorship care plan documentation. Copies of which are provided to the patient and all members of her health care team. Engaged in lengthy conversation regarding potential thaw shed heater tender/late side effects associated with chemotherapy exposure, recommendations for follow up and signs/symptoms of concern that should be report in between visits Healthy living recommendations:- Today we spent time discussing healthy lifestyle modifications inclusive of plant based diet including low fat, high fiber foods, low sodium and low cholesterol foods. We also discussed the importance of an exercise regimen of approx 5-6 days a week or physical activity >20 min per day and maintaining a healthy weight as well as avoiding alcohol; abstinence from tobacco products. We discussed the appropriate health maintenance screenings for this patient. Continue to follow with pcp. Psychosocial AND spiritual health- He is well supported by spouse and 3 daughters. Continues to adjust to life as a cancer survivor. We discussed sexual intimacy after cancer treatment, the fear of recurrence, coping strategies and potential resources. Greater than 50% of this one hour visit was spent in counseling and a significant amount of time was allotted for questions. All the patient's concerns were addressed to his satisfaction. 3-continue to follow-up with speech therapy and dietary, goal is to resume sufficient oral intake and remove the PEG tube. Swallow study planned for 06/12/19. 4- Tobacco use- Patient admits he has smoked several times since the end of his treatment. Accepts referral to [facility] Tobacco Cessation Program. RTO on 07/16/19 to review results of PET/CT with Dr. 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 Marce Maxwell APRN-FISH CLEANER, AOCNP Medications: Prescriptions This Visit Medication Instructions Recorded Thiamine Hydrochloride [Vitamin B1] 1 tab PO DAILY 01/05/19 Oxycodone HCl 5 mg PO Q6H PRN PRN #40 tablet 03/04/19 Oxycodone HCl 5 mg PO Q4H PRN PRN #60 tab 03/16/19 Primary Care Provider: Kya Gonzalez NP Referring Provider: - Problem List (1) Regional lymph node metastasis present Status: Chronic (2) Head and neck cancer Status: Chronic (3) Encounter for education Status: Resolved 06/08/19 1416 <Electronically signed by Marce BUNN> Date Marce BUNN Cosigner Signature: Date (if applicable) CC: Kya Gonzalez Start: 06-08-2019 End: 06-08-2019 End of Treatment Summary Comments: See Note; NOTES: [facility] [address] [place] [address] End of Treatment Summary Date of Service: 05/27/19 1618 MR#: [id number] Acct: [id number] Name: MY JAMA Rep #: [id number] : 1960 From: Marce BUNN Age/Sex: 58/M Location: OMD Status: Signed General Information Primary Care Provider:: Kya Gonzalez Surgeon Name: Rachel Brooks Radiation Oncologist:: Santiago Sellers Medical Oncologist:: Quincy Simpson Other Providers:: Shane Gibson. Jim Burgos Treatment Summary Problem List: All Active Problems (Last Reviewed 06/08/19 @ 13:22 by Angélica Hastings) Dehydration (Resolved) Cancer related pain (Resolved) Encounter for adjustment or management of vascular access device (Acute) Encounter for education (Resolved) Dysphagia, unspecified (Resolved) Cancer Type / Location / Histology Subtype:: Squamous cell carcinoma, head and neck with primary origin unknown, p16 negative Diagnosis Date [year]:: 12/22/18 Stage:: IV - NOREEN (TX, N2, M0) Surgery:: Yes Surgery Date[s] [year]:: 01/30/19 Surgical Procedure / Location / Findings:: Underwent left tonsil and uvula excision. Pathology displayed no evidence of malignancy or high-grade squamous dysplasia. There was noted to be submucosal dilated minor salivary gland duct with oncocytic metaplasia in the uvula. Radiation:: Yes Body area treated:: Left neck and high risk lymph nodes End Date [year]:: 02/10/19-03/25/19 Systemic Therapy [chemotherapy, hormonal therapy, other]:: Yes Name of Agents Used and End Date of Usage:: High dose Cisplatin on days 1, 22, 43 from 02/10/19-03/23/19 Persistent symptoms of side effects at completion of treatment:: No Follow-up Care Plan Need for ongoing [adjuvant] treatment for cancer:: No Schedule of Clinical Visits Coordination Provider:: Rachel Brooks - Complete head and neck exam, fiberoptic/mirror When/How often:: Every 1-3 mo x 1 yr, every 2-6mo x1 yr, every 4-8mo x 3 yrs, then annually Coordination Provider:: Quincy Simpson When/How often:: Every 1-3 mo x 1 yr, every 2-6mo x1 yr, every 4-8mo x 3 yrs, then annually Cancer Surveillance/Other Test Coordination Provider:: Quincy Simpson - July 20, 2019 When/How often:: Post Treatment PET/CT Coordination Provider:: Quincy Simpson - Thyroid stimulating hormone level When/How often:: Every 6-12 months Coordination Provider:: Quincy Simpson - July 2020 When/How often:: CT chest for lung cancer screening Cancer Surveillance/Symptoms: Please continue to see your primary care provider for all general health care recommended for a M your age, including cancer screening tests. Any symptoms should be brought to the attention of your provider: * Anything that represents a brand new symptom * Anything that represents a persistent symptom * Anything you are worried about that might be related to the cancer coming back Cancer survivors may experience issues with the areas listed below:: Emotional and mental health, Physical functioning, Memory or concentration loss, Fatigue, Insurance, Weight changes, School/Work, Stopped smoking, Financial Advice or Assistance, Sexual functioning Cancer Survivor Issues - Help: If you have any concerns in these or other areas, please speak with your doctors or nurses to find out how you can get help with them. A number of lifestyle/behaviors can affect your ongoing health, including the risk for the cancer coming back or developing another cancer. Discuss these recommendations with your doctor or nurse.: Tobacco use/Cessation, Alcohol use, Weight Management [loss/gain], Diet, Sunscreen use, Physical activity Other comments:: Prepared by VINCE Shirley, AUDREY. Delivered on 06/08/19 06/08/19 1400 <Electronically signed by Marce BUNN> Date Marce BUNN Cosigner Signature: Date (if applicable) CC: YARI Boland Monica Start: 05-19-2019 End: 05-19-2019 Oncology Visit Report Comments: See Note; NOTES: [facility] [address] [place] [id number] OFFICE VISIT Date of Service: 05/19/19 1136 MR#: [id number] Acct: [id number] Name: MY JAMA Rep #: [id number] : 1960 From: Quincy Simpson MD Age/Sex: 58/M Location: OMD Status: Signed - Problem List (1) Head and neck cancer Status: Chronic (2) Regional lymph node metastasis present Status: Chronic - Date of Service Date of Service:: 05/19/19 - Chief Complaint Head and neck cancer on treatment - History of Present Illness 58-year-old male smoker and active alcoholic who presented with a painless left neck mass that has progressively increased in size over the course of the past couple of months. December 17, 2018 CT soft tissues of the neck: FINDINGS: There is a rim-enhancing centrally cystic mass distal to the angle the mandible, lateral to the hyoid cartilage, along the anterior margin of the sternocleidomastoid muscle. Wall thickness up to 4.9 mm. Process measures approximately 1.8 cm craniocaudal, 1.8 cm transverse, 2.9 cm anterior-posterior. Posteriorly and deep to the sternomastoid muscle, single mildly enlarged lymph node measuring 1.2 x 1.6 cm. A few additional shotty lymph nodes are present on the left. Normal thyroid. Normal submandibular glands and parotid glands. There is no right cervical lymphadenopathy. Pharyngeal and laryngeal soft tissues appear normal. Multilevel cervical spondylosis with disc disease most notable at C5-C6 with uncovertebral joint hypertrophy contributing to mild foraminal narrowing. Mucoperiosteal thickening and mucous retention cysts of the maxillary sinuses. Solitary opacified posterior right ethmoid sinus. Mastoid air cells and middle ear cavities clear. 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 December 17, 2018 CT chest: FINDINGS: Supraclavicular: No acute process within the [id number]. Body wall soft tissues: No acute process. Upper abdomen: No acute process. Osseous structures: No acute process. Mild scoliosis, moderate kyphosis, mild multilevel thoracic spondylosis. Mediastinum: No acute process. Cardiovascular: No acute process. Lungs: A few small scattered pulmonary nodules are present. The largest is in the right upper lobe anterior segment, series 6 image 73, 5 cm, solid features, smooth margins. Unremarkable airways. IMPRESSION: No acute thoracic process is evident. Small pulmonary nodules. The largest measures approximately 5 mm. Follow-up low-dose CT chest is recommended in 1 year for pulmonary nodule surveillance purposes. December 22, 2018 DIAGNOSIS CYTOLOGY A. 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 See comment. B. 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 ANTIBODY / CLONE RESULT Block A AE1-3 (AE1/AE3/PCK26) positive CK7 (OV-TL12/30) negative CK8 (08wvtkP82) positive, weak CK20 (KS20.8) negative TTF-1 (8G7G3/1) negative Napsin A (Rabbit Polyclonal) negative HepPar (OCh1E5) negative RCC (PN-15) negative PSAP (PASE/4LJ) negative CK5-6 (D5 AND 1684) positive P16 (E6H4) negative P40 (BC28) positive, focal January 02, 2019: Patient was evaluated by ENT : oral and oropharyngeal mucosa were normal. Flexible laryngoscopy was performed which demonstrated no evidence of lesion. Small cystic lesion of the uvula was felt to be benign. January 05, 2019 PET/CT: IMPRESSION: 1. ABNORMAL EXAMINATION INDICATIVE OF MALIGNANT-VIABLE NEOPLASM. 2. Increased glucose concentration observed in the left lateral neck fulfills quantitative criteria for viable neoplasm. 3. Asymmetric enhanced FDG distribution noted in the left pharyngeal mucosal space may be further investigated with rigorous clinical examination. 4. No other quantitatively significant hypermetabolic abnormalities are noted. There is no definitive scintigraphic evidence of distant metastatic disease. January 30, 2019: left tonsil excision and uvula excision. Pathology displayed no evidence of malignancy or high-grade squamous dysplasia. There was noted to be submucosal dilated minor salivary gland duct with oncocytic metaplasia in the uvula. In preparation for locoregional combined chemoradiation patient Patient underwent multiple dental extractions, placement of PEG tube and port. February 10 through March 25, 2019 combined modality therapy (see below for details) May 13, 2019: CT chest: Comparison is made with prior study in December 17, 2018 There is persistent multifocal nodular pleural thickening or tiny pleural-based nodules in the lower lobes which are unchanged in size or number since previous study. The dominant nodule in the right lower lobe is not changed appreciably in size since prior exam Treatment summary: Combined high-dose cisplatin and radiation January through March 2019: 6996 cGy delivered to gross disease involving the left neck, 5940 cGy to the high risk mucosal sites (entire oropharynx) and high risk lymph node sites (left levels 2-5), and 5412 cGy delivered to the low risk mucosal sites (nasopharynx, larynx, hypopharynx) bilateral high level 2, bilateral supraclavicular fossa, and right neck levels 2-5). The patient did receive concurrent chemotherapy with high dose cisplatin (cycle 1: 02/10, cycle 2: 03/02, cycle 3: 03/23). Date of First Treatment: 02/10/2019 Date of Last Treatment: 03/25/2019 - Past Medical/Social History Past Medical History Cancer: Other Other Cancer History: carcinoma of unknown primary Social History Social History: No changes Smoking Status Former smoker Review of Systems Constitutional:: Reports: Weakness - Improving, contemplating going back to work as tolerated, Fatigue. Denies: Fever, Sweats, Weight loss, Appetite change, Chills Cardiovascular:: Reports: Dyspnea on exertion. Denies: Chest pain, Palpitations, Orthopnea, PND, Shortness of breath Respiratory: Reports: Shortness of breath upon exertion. Denies: Cough, Hemoptysis, Shortness of Breath, Wheezing Gastrointestinal:: Reports: Dysphagia - Improving however still dependent on PEG tube for most nutrition. Denies: Abdominal pain, Nausea, Vomiting, Diarrhea, Constipation, Hematochezia Genitourinary: Denies: Dysuria, Hematuria, 15, Flank pain Musculoskeletal:: Denies: Back pain, Myalgia, Arthralgia Skin: Reports: Skin Changes - From radiation improving. Denies: Rash, Wounds Neurological:: Denies: Headache, Dizziness, Visual changes, Tinnitus, Hearing loss Psychiatric: Denies: Anxiety, Depression, Homicidal Ideations, Suicidal Ideations Vital Signs Height 5 ft 6 in Weight: 56.79 kg Weight in Pounds 125.2 lbs BMI 22.6 Pulse Ox 100 - Physical Exam General: Alert, Oriented x3, No apparent distress, - - ECOG 1 HEENT: Atraumatic, PERRLA, EOMI, Normocephalic Oropharynx:: Dry mucosa Neck:: Supple, Trachea midline, - - Port okay. Negative for: JVD, bilateral Cardiac:: Regular rate, Regular rhythm, Normal S1, Normal S2. Negative for: Murmur Lungs: Clear to auscultation, Diminished, Excusion symmetrical. Negative for: Rhonchi, Wheezes Abdomen:: Soft, Non-tender, Non-distended, - - PEG tube okay. Negative for: Hepatosplenomegaly Extremities:: Negative for: Cyanosis, Edema Neurological: Neuro grossly intact Skin:: Redness - Neck resolving. 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 Patient is status post tonsillectomies and uveal excision yet no primary identified. In addition he has indeterminate too small to further characterize lung nodules on chest CT. Received concomitant chemoradiation January through March 2019 tolerated with expected but no excessive toxicities. A follow-up CT of the chest April 2019 showed stable nodules. Recovering from illness and toxicity of treatment, contemplating going back to work as tolerated May 2019. Comorbid conditions: Smoking and excessive alcohol until the time of diagnosis of malignancy. Plan: 1-Surveillance, PET/CT in 2 months. 2-continue to follow-up with speech therapy and dietary, goal is to resume sufficient oral intake and remove the PEG tube Impression and plan reviewed with patient and family. Quincy Simpson MD Environmental Services Floor Tech, [facility] Divisions of Medical Oncology AND Hematology Department of Internal Medicine [facility] [place] [address] This note was generated using a voice recognition system software. Although it was reviewed by the author prior to finalization, it may still contain incorrect words, spelling, and punctuation that were not noted when reviewing prior to saving. If a clinically significant typo or inaccurately typed phrase is noted, please notify the author. Medications: Prescriptions This Visit Medication Instructions Recorded Thiamine Hydrochloride [Vitamin B1] 1 tab PO DAILY 01/05/19 Magic Mouth Wash 15 ml PO Q6H PRN PRN #240 ml 02/25/19 Oxycodone HCl 5 mg PO Q6H PRN PRN #40 tablet 03/04/19 Primary Care Provider: Kya Gonzalez NP Referring Provider: 05/19/19 0826 <Electronically signed by Quincy Simpson MD> Date Quincy Simpson MD Cosigner Signature: Date (if applicable) CC: Santiago Sellers DO Kya Gonzalez Start: 05-13-2019 End: 05-14-2019 Chest WITH Contrast Comments: See Note; NOTES: [facility] Imaging Services [address] [place] [address] Chest WITH Contrast MR#: [id number] Acct: [id number] Name: MY JAMA Rep #: [id number] : 1960 M 58 From: Ric Pelaez MD PCP: Kya Gonzalez [employer] Status: REG CLI Study: Chest WITH Contrast Date of Exam: 05/13/19 Exam# [id number] Ordering Dr: Quincy Simpson MD STUDY: CT CHEST WITH CONTRAST REASON FOR EXAM: Male, 58 years old. Lung nodules follow-up RADIATION DOSAGE (If Supplied By Facility): CTDIvol = ( 9.04 ) mGy, DLP = ( 337.76 ) mGycm TECHNIQUE: Transaxial imaging was performed following intravenous administration of 100 IV Isovue 300. Individualized dose optimization techniques were used for this CT. COMPARISON: December 17, 2018 report only FINDINGS: There is very mild interstitial prominence particularly in the lower lobes. There is no focal infiltration. There is a tiny nodule in the right middle lobe measuring approximately 4 mm in size. There is no demonstrated pleural abnormality. Normal heart and pericardium. Normal mediastinum. Normal hilar regions. Normal enhanced pulmonary arteries. Normal aorta arch and descending thoracic aorta. Dorsal spine demonstrates advanced degenerative change Small hiatal hernia is present. There is no demonstrated abnormality of the visualized upper abdomen. CT/Chest WITH Contrast IMPRESSION: Mild interstitial thickening.. Solitary tiny nodule in the right lower lobe measuring approximately 4 mm. No other discrete nodules are identified This appears to represent an improvement based on prior exam report however the study itself is not available for comparison purposes.. Direct comparison is recommended when prior studies are available Electronically Signed: Ric Pelaez MD at 17:23 EDT , Service support , CC: YARI Gonzalez; Quincy Simpson MD Wood Router Hand: Signed Kya Gonzalez Start: 04-28-2019 End: 04-28-2019 Oncology Visit Report Comments: See Note; NOTES: [facility] [address] [place] [address] OFFICE VISIT Date of Service: 04/28/19 1148 MR#: [id number] Acct: [id number] Name: MY JAMA Rep #: [id number] : 1960 From: Quincy Simpson MD Age/Sex: 58/M Location: OMD Status: Signed - Problem List (1) Head and neck cancer Status: Chronic (2) Regional lymph node metastasis present Status: Chronic - Date of Service Date of Service:: 04/28/19 - Chief Complaint Head and neck cancer - History of Present Illness 58-year-old male smoker and active alcoholic who presented with a painless left neck mass that has progressively increased in size over the course of the past couple of months. December 17, 2018 CT soft tissues of the neck: FINDINGS: There is a rim-enhancing centrally cystic mass distal to the angle the mandible, lateral to the hyoid cartilage, along the anterior margin of the sternocleidomastoid muscle. Wall thickness up to 4.9 mm. Process measures approximately 1.8 cm craniocaudal, 1.8 cm transverse, 2.9 cm anterior-posterior. Posteriorly and deep to the sternomastoid muscle, single mildly enlarged lymph node measuring 1.2 x 1.6 cm. A few additional shotty lymph nodes are present on the left. Normal thyroid. Normal submandibular glands and parotid glands. There is no right cervical lymphadenopathy. Pharyngeal and laryngeal soft tissues appear normal. Multilevel cervical spondylosis with disc disease most notable at C5-C6 with uncovertebral joint hypertrophy contributing to mild foraminal narrowing. Mucoperiosteal thickening and mucous retention cysts of the maxillary sinuses. Solitary opacified posterior right ethmoid sinus. Mastoid air cells and middle ear cavities clear. 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 December 17, 2018 CT chest: FINDINGS: Supraclavicular: No acute process within the [id number]. Body wall soft tissues: No acute process. Upper abdomen: No acute process. Osseous structures: No acute process. Mild scoliosis, moderate kyphosis, mild multilevel thoracic spondylosis. Mediastinum: No acute process. Cardiovascular: No acute process. Lungs: A few small scattered pulmonary nodules are present. The largest is in the right upper lobe anterior segment, series 6 image 73, 5 cm, solid features, smooth margins. Unremarkable airways. IMPRESSION: No acute thoracic process is evident. Small pulmonary nodules. The largest measures approximately 5 mm. Follow-up low-dose CT chest is recommended in 1 year for pulmonary nodule surveillance purposes. December 22, 2018 DIAGNOSIS CYTOLOGY A. 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 See comment. B. 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 ANTIBODY / CLONE RESULT Block A AE1-3 (AE1/AE3/PCK26) positive CK7 (OV-TL12/30) negative CK8 (58ydffF94) positive, weak CK20 (KS20.8) negative TTF-1 (8G7G3/1) negative Napsin A (Rabbit Polyclonal) negative HepPar (OCh1E5) negative RCC (PN-15) negative PSAP (PASE/4LJ) negative CK5-6 (D5 AND 1684) positive P16 (E6H4) negative P40 (BC28) positive, focal January 02, 2019: Patient was evaluated by ENT : oral and oropharyngeal mucosa were normal. Flexible laryngoscopy was performed which demonstrated no evidence of lesion. Small cystic lesion of the uvula was felt to be benign. January 05, 2019 PET/CT: IMPRESSION: 1. ABNORMAL EXAMINATION INDICATIVE OF MALIGNANT-VIABLE NEOPLASM. 2. Increased glucose concentration observed in the left lateral neck fulfills quantitative criteria for viable neoplasm. 3. Asymmetric enhanced FDG distribution noted in the left pharyngeal mucosal space may be further investigated with rigorous clinical examination. 4. No other quantitatively significant hypermetabolic abnormalities are noted. There is no definitive scintigraphic evidence of distant metastatic disease. January 30, 2019: left tonsil excision and uvula excision. Pathology displayed no evidence of malignancy or high-grade squamous dysplasia. There was noted to be submucosal dilated minor salivary gland duct with oncocytic metaplasia in the uvula. In preparation for locoregional combined chemoradiation patient Patient underwent multiple dental extractions, placement of PEG tube and port. Treatment: Combined high-dose cisplatin and radiation January through March 2019: 6996 cGy delivered to gross disease involving the left neck, 5940 cGy to the high risk mucosal sites (entire oropharynx) and high risk lymph node sites (left levels 2-5), and 5412 cGy delivered to the low risk mucosal sites (nasopharynx, larynx, hypopharynx) bilateral high level 2, bilateral supraclavicular fossa, and right neck levels 2-5). The patient did receive concurrent chemotherapy with high dose cisplatin (cycle 1: 02/10, cycle 2: 03/02, cycle 3: 03/23). Date of First Treatment: 02/10/2019 Date of Last Treatment: 03/25/2019 - Past Medical/Social History Past Medical History Cancer: Other Other Cancer History: carcinoma of unknown primary Social History Social History: No changes Smoking Status Former smoker Review of Systems Constitutional:: Reports: Weakness - Gradually improving, Fatigue. Denies: Fever, Sweats, Weight loss, Appetite change - Appetite is improving and lack of top dentures limits oral intake, Chills Cardiovascular:: Reports: Dyspnea on exertion. Denies: Chest pain, Palpitations, Orthopnea, PND, Shortness of breath Respiratory: Reports: Cough, Shortness of breath upon exertion, Sputum production - Clear. Denies: Hemoptysis, Shortness of Breath, Wheezing Gastrointestinal:: Reports: Dysphagia - Notably improved. Denies: Abdominal pain, Nausea, Vomiting, Diarrhea, Constipation, Hematochezia Genitourinary: Denies: Dysuria, Hematuria, 15, Flank pain Musculoskeletal:: Denies: Back pain, Myalgia, Arthralgia Skin: Denies: Rash, Skin Changes, Wounds Neurological:: Denies: Headache, Dizziness, Visual changes, Tinnitus, Hearing loss Psychiatric: Denies: Anxiety, Depression, Homicidal Ideations, Suicidal Ideations Vital Signs Height 5 ft 6 in Weight: 56.155 kg Weight in Pounds 123.8 lbs BMI 22.6 Pulse Ox 97 - Physical Exam General: Alert, Oriented x3, No apparent distress, - - ECOG 1 HEENT: Atraumatic, PERRLA, EOMI, Normocephalic Oropharynx:: Dry mucosa Neck:: Supple, Trachea midline, - - Port okay. Negative for: JVD, bilateral Cardiac:: Regular rate, Regular rhythm, Normal S1, Normal S2. Negative for: Murmur Lungs: Clear to auscultation, Diminished, Excusion symmetrical. Negative for: Rhonchi, Wheezes Abdomen:: Soft, Non-tender, Non-distended, - - PEG tube okay. Negative for: Hepatosplenomegaly Extremities:: - - Dupuytren's contractures. Negative for: Cyanosis, Edema Neurological: Neuro grossly intact Skin:: Negative for: Lesions, Rash, Petechiae, Ecchymosis Psychiatric:: Appropriate affect, Euthymic Lymphatics:: Negative for: Cervical lymphadenopathy, Supraclavicular lymphadenopathy Laboratory Data: CBC, BMP reviewed in EMR Diagnostic Data: Diagnostic Data PET, CT Tumor Imaging 01/05/19 10:00 IMPRESSION: 1. ABNORMAL EXAMINATION INDICATIVE OF MALIGNANT-VIABLE NEOPLASM. 2. Increased glucose concentration observed in the left lateral neck fulfills quantitative criteria for viable neoplasm. 3. Asymmetric enhanced FDG distribution noted in the left pharyngeal mucosal space may be further investigated with rigorous clinical examination. 4. No other quantitatively significant hypermetabolic abnormalities are noted. There is no definitive scintigraphic evidence of distant metastatic disease. Electronic Signature Narendra Weathers D.O. 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 Patient is status post tonsillectomies and uveal excision yet no primary identified. In addition he has indeterminate too small to further characterize lung nodules on chest CT. Comorbid conditions: Smoking and excessive alcohol until the time of diagnosis of malignancy. Plan: 1-concluded primary radiation therapy + chemosensitization with high-dose cisplatin, January -March 2019 tolerated without excessive toxicities 2-we will wean off IV fluids by the end of this week 3-follow-up in 3 weeks with chest imaging follow-up of lung nodules. Impression and plan reviewed with patient . Quincy Simpson MD Environmental Services Floor Tech, [facility] Divisions of Medical Oncology AND Hematology Department of Internal Medicine [address] [address] This note was generated using a voice recognition system software. Although it was reviewed by the author prior to finalization, it may still contain incorrect words, spelling, and punctuation that were not noted when reviewing prior to saving. If a clinically significant typo or inaccurately typed phrase is noted, please notify the author. Medications: Prescriptions This Visit Medication Instructions Recorded Thiamine Hydrochloride [Vitamin B1] 1 tab PO DAILY 01/05/19 Magic Mouth Wash 15 ml PO Q6H PRN PRN #240 ml 02/25/19 Oxycodone HCl 5 mg PO Q6H PRN PRN #40 tablet 03/04/19 Primary Care Provider: Kya Gonzalez NP Referring Provider: 04/28/19 1214 <Electronically signed by Quincy Simpson MD> Date Quincy Simpson MD Cosigner Signature: Date (if applicable) CC: Kya Gonzalez Start: 04-21-2019 End: 04-21-2019 Oncology Visit Report Comments: See Note; NOTES: [place] [address] OFFICE VISIT Date of Service: 04/21/19 1142 MR#: [id number] Acct: [id number] Name: MY JAMA Rep #: [id number] : 1960 From: Quincy Simpson MD Age/Sex: 58/M Location: ONC Status: Signed - Problem List (1) Head and neck cancer Status: Acute (2) Regional lymph node metastasis present Status: Acute - Date of Service Date of Service:: 04/21/19 - Chief Complaint Head and neck cancer - History of Present Illness 58-year-old male smoker and active alcoholic who presented with a painless left neck mass that has progressively increased in size over the course of the past couple of months. December 17, 2018 CT soft tissues of the neck: FINDINGS: There is a rim-enhancing centrally cystic mass distal to the angle the mandible, lateral to the hyoid cartilage, along the anterior margin of the sternocleidomastoid muscle. Wall thickness up to 4.9 mm. Process measures approximately 1.8 cm craniocaudal, 1.8 cm transverse, 2.9 cm anterior-posterior. Posteriorly and deep to the sternomastoid muscle, single mildly enlarged lymph node measuring 1.2 x 1.6 cm. A few additional shotty lymph nodes are present on the left. Normal thyroid. Normal submandibular glands and parotid glands. There is no right cervical lymphadenopathy. Pharyngeal and laryngeal soft tissues appear normal. Multilevel cervical spondylosis with disc disease most notable at C5-C6 with uncovertebral joint hypertrophy contributing to mild foraminal narrowing. Mucoperiosteal thickening and mucous retention cysts of the maxillary sinuses. Solitary opacified posterior right ethmoid sinus. Mastoid air cells and middle ear cavities clear. 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 December 17, 2018 CT chest: FINDINGS: Supraclavicular: No acute process within the [id number]. Body wall soft tissues: No acute process. Upper abdomen: No acute process. Osseous structures: No acute process. Mild scoliosis, moderate kyphosis, mild multilevel thoracic spondylosis. Mediastinum: No acute process. Cardiovascular: No acute process. Lungs: A few small scattered pulmonary nodules are present. The largest is in the right upper lobe anterior segment, series 6 image 73, 5 cm, solid features, smooth margins. Unremarkable airways. IMPRESSION: No acute thoracic process is evident. Small pulmonary nodules. The largest measures approximately 5 mm. Follow-up low-dose CT chest is recommended in 1 year for pulmonary nodule surveillance purposes. December 22, 2018 DIAGNOSIS CYTOLOGY A. 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 See comment. B. 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 ANTIBODY / CLONE RESULT Block A AE1-3 (AE1/AE3/PCK26) positive CK7 (OV-TL12/30) negative CK8 (10zqeeD65) positive, weak CK20 (KS20.8) negative TTF-1 (8G7G3/1) negative Napsin A (Rabbit Polyclonal) negative HepPar (OCh1E5) negative RCC (PN-15) negative PSAP (PASE/4LJ) negative CK5-6 (D5 AND 1684) positive P16 (E6H4) negative P40 (BC28) positive, focal January 02, 2019: Patient was evaluated by ENT : oral and oropharyngeal mucosa were normal. Flexible laryngoscopy was performed which demonstrated no evidence of lesion. Small cystic lesion of the uvula was felt to be benign. January 05, 2019 PET/CT: IMPRESSION: 1. ABNORMAL EXAMINATION INDICATIVE OF MALIGNANT-VIABLE NEOPLASM. 2. Increased glucose concentration observed in the left lateral neck fulfills quantitative criteria for viable neoplasm. 3. Asymmetric enhanced FDG distribution noted in the left pharyngeal mucosal space may be further investigated with rigorous clinical examination. 4. No other quantitatively significant hypermetabolic abnormalities are noted. There is no definitive scintigraphic evidence of distant metastatic disease. January 30, 2019: left tonsil excision and uvula excision. Pathology displayed no evidence of malignancy or high-grade squamous dysplasia. There was noted to be submucosal dilated minor salivary gland duct with oncocytic metaplasia in the uvula. In preparation for locoregional combined chemoradiation patient Patient underwent multiple dental extractions, placement of PEG tube and port. Treatment: Combined high-dose cisplatin and radiation January through March 2019: 6996 cGy delivered to gross disease involving the left neck, 5940 cGy to the high risk mucosal sites (entire oropharynx) and high risk lymph node sites (left levels 2-5), and 5412 cGy delivered to the low risk mucosal sites (nasopharynx, larynx, hypopharynx) bilateral high level 2, bilateral supraclavicular fossa, and right neck levels 2-5). The patient did receive concurrent chemotherapy with high dose cisplatin (cycle 1: 02/10, cycle 2: 03/02, cycle 3: 03/23). Date of First Treatment: 02/10/2019 Date of Last Treatment: 03/25/2019 - Past Medical/Social History Past Medical History Cancer: Other Other Cancer History: carcinoma of unknown primary Social History Social History: No changes Smoking Status Former smoker Review of Systems Constitutional:: Reports: Weakness - Slowly improving, Fatigue. Denies: Fever, Sweats, Weight loss, Appetite change, Chills Cardiovascular:: Denies: Chest pain, Palpitations, Dyspnea on exertion, Orthopnea, PND, Shortness of breath Respiratory: Reports: Cough, Sputum production - Clear. Denies: Hemoptysis, Shortness of Breath, Wheezing Gastrointestinal:: Reports: Dysphagia - Improving, - - Still dependent on PEG tube feeds. Denies: Abdominal pain, Nausea, Vomiting, Diarrhea, Constipation, Hematochezia Genitourinary: Denies: Dysuria, Hematuria, 15, Flank pain Musculoskeletal:: Denies: Back pain, Myalgia, Arthralgia Skin: Denies: Rash, Skin Changes, Wounds Neurological:: Reports: Hearing loss - Unchanged. Denies: Headache, Dizziness, Visual changes, Tinnitus Psychiatric: Denies: Anxiety, Depression, Homicidal Ideations, Suicidal Ideations Vital Signs Height 5 ft 6 in Weight: 56.155 kg Weight in Pounds 123.8 lbs BMI 22.6 Pulse Ox 98 - Physical Exam General: Alert, Oriented x3, No apparent distress, - - ECOG 2 HEENT: Atraumatic, PERRLA, EOMI, Normocephalic Oropharynx:: Dry mucosa Neck:: Supple, Trachea midline, - - Port okay. Negative for: JVD, bilateral Cardiac:: Regular rate, Regular rhythm, Normal S1, Normal S2. Negative for: Murmur Lungs: Clear to auscultation, Excusion symmetrical. Negative for: Rhonchi, Wheezes Abdomen:: Soft, Non-tender, Non-distended, - - PEG tube okay. Negative for: Hepatosplenomegaly Extremities:: Negative for: Cyanosis, Edema Neurological: Neuro grossly intact Skin:: Redness - Left side of the neck. Negative for: Lesions, Rash, Petechiae, Ecchymosis Psychiatric:: Appropriate affect, Euthymic Lymphatics:: Negative for: Cervical lymphadenopathy, Supraclavicular lymphadenopathy, Axillary lymphadenopathy Laboratory Data: Laboratory Tests Diagnostic Data: Diagnostic Data PET, CT Tumor Imaging 01/05/19 10:00 IMPRESSION: 1. ABNORMAL EXAMINATION INDICATIVE OF MALIGNANT-VIABLE NEOPLASM. 2. Increased glucose concentration observed in the left lateral neck fulfills quantitative criteria for viable neoplasm. 3. Asymmetric enhanced FDG distribution noted in the left pharyngeal mucosal space may be further investigated with rigorous clinical examination. 4. No other quantitatively significant hypermetabolic abnormalities are noted. There is no definitive scintigraphic evidence of distant metastatic disease. Electronic Signature Narendra Weathers D.O. 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 Patient is status post tonsillectomies and uveal excision yet no primary identified. In addition he has indeterminate too small to further characterize lung nodules on chest CT. Comorbid conditions: Smoking and excessive alcohol until the time of diagnosis of malignancy. Plan: 1-concluded primary radiation therapy + chemosensitization with high-dose cisplatin, January -March 2019 tolerated without excessive toxicities 2- continue with weekly close monitoring, IV fluid hydration to support limited oral and PEG tube intake Tuesdays and for 2 weeks, reassess in 1 week and gradually weaning off. 3-chest imaging April 2019. Impression and plan reviewed with patient . Quincy Simpson MD Environmental Services Floor Tech, [facility] Divisions of Medical Oncology AND Hematology Department of Internal Medicine [place] [phone] This note was generated using a voice recognition system software. Although it was reviewed by the author prior to finalization, it may still contain incorrect words, spelling, and punctuation that were not noted when reviewing prior to saving. If a clinically significant typo or inaccurately typed phrase is noted, please notify the author. Medications: Prescriptions This Visit Medication Instructions Recorded Thiamine Hydrochloride [Vitamin B1] 1 tab PO DAILY 01/05/19 Magic Mouth Wash 15 ml PO Q6H PRN PRN #240 ml 02/25/19 Oxycodone HCl 5 mg PO Q6H PRN PRN #40 tablet 03/04/19 Medications Added to Medication List This Visit 0.9% Normal Saline 1,000 ml Med 04/21/19 11:30 Active IV [facility] Primary Care Provider: Kya Gonzalez NP Referring Provider: 04/21/19 1144 <Electronically signed by Quincy Simpson MD> Date Quincy Simpson MD Cosigner Signature: Date (if applicable) CC: Kya Gonzalez Start: 04-13-2019 End: 04-13-2019 Oncology Visit Report Comments: See Note; NOTES: [facility] [address] [place] [id number] OFFICE VISIT Date of Service: 04/13/19939 MR#: [id number] Acct: [id number] Name: MY JAMA Rep #: [id number] : 1960 From: Quincy Simpson MD Age/Sex: 58/M Location: [facility] Status: Signed - Problem List (1) Head and neck cancer Status: Acute (2) Regional lymph node metastasis present Status: Acute - Date of Service Date of Service:: 04/13/19 - Chief Complaint Head and neck cancer on treatment - History of Present Illness 58-year-old male smoker and active alcoholic who presented with a painless left neck mass that has progressively increased in size over the course of the past couple of months. December 17, 2018 CT soft tissues of the neck: FINDINGS: There is a rim-enhancing centrally cystic mass distal to the angle the mandible, lateral to the hyoid cartilage, along the anterior margin of the sternocleidomastoid muscle. Wall thickness up to 4.9 mm. Process measures approximately 1.8 cm craniocaudal, 1.8 cm transverse, 2.9 cm anterior-posterior. Posteriorly and deep to the sternomastoid muscle, single mildly enlarged lymph node measuring 1.2 x 1.6 cm. A few additional shotty lymph nodes are present on the left. Normal thyroid. Normal submandibular glands and parotid glands. There is no right cervical lymphadenopathy. Pharyngeal and laryngeal soft tissues appear normal. Multilevel cervical spondylosis with disc disease most notable at C5-C6 with uncovertebral joint hypertrophy contributing to mild foraminal narrowing. Mucoperiosteal thickening and mucous retention cysts of the maxillary sinuses. Solitary opacified posterior right ethmoid sinus. Mastoid air cells and middle ear cavities clear. 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 December 17, 2018 CT chest: FINDINGS: Supraclavicular: No acute process within the [id number]. Body wall soft tissues: No acute process. Upper abdomen: No acute process. Osseous structures: No acute process. Mild scoliosis, moderate kyphosis, mild multilevel thoracic spondylosis. Mediastinum: No acute process. Cardiovascular: No acute process. Lungs: A few small scattered pulmonary nodules are present. The largest is in the right upper lobe anterior segment, series 6 image 73, 5 cm, solid features, smooth margins. Unremarkable airways. IMPRESSION: No acute thoracic process is evident. Small pulmonary nodules. The largest measures approximately 5 mm. Follow-up low-dose CT chest is recommended in 1 year for pulmonary nodule surveillance purposes. December 22, 2018 DIAGNOSIS CYTOLOGY A. 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 See comment. B. 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 ANTIBODY / CLONE RESULT Block A AE1-3 (AE1/AE3/PCK26) positive CK7 (OV-TL12/30) negative CK8 (02aiasQ98) positive, weak CK20 (KS20.8) negative TTF-1 (8G7G3/1) negative Napsin A (Rabbit Polyclonal) negative HepPar (OCh1E5) negative RCC (PN-15) negative PSAP (PASE/4LJ) negative CK5-6 (D5 AND 1684) positive P16 (E6H4) negative P40 (BC28) positive, focal January 02, 2019: Patient was evaluated by ENT : oral and oropharyngeal mucosa were normal. Flexible laryngoscopy was performed which demonstrated no evidence of lesion. Small cystic lesion of the uvula was felt to be benign. January 05, 2019 PET/CT: IMPRESSION: 1. ABNORMAL EXAMINATION INDICATIVE OF MALIGNANT-VIABLE NEOPLASM. 2. Increased glucose concentration observed in the left lateral neck fulfills quantitative criteria for viable neoplasm. 3. Asymmetric enhanced FDG distribution noted in the left pharyngeal mucosal space may be further investigated with rigorous clinical examination. 4. No other quantitatively significant hypermetabolic abnormalities are noted. There is no definitive scintigraphic evidence of distant metastatic disease. January 30, 2019: left tonsil excision and uvula excision. Pathology displayed no evidence of malignancy or high-grade squamous dysplasia. There was noted to be submucosal dilated minor salivary gland duct with oncocytic metaplasia in the uvula. In preparation for locoregional combined chemoradiation patient Patient underwent multiple dental extractions, placement of PEG tube and port. Treatment: Combined high-dose cisplatin and radiation January through March 2019: 6996 cGy delivered to gross disease involving the left neck, 5940 cGy to the high risk mucosal sites (entire oropharynx) and high risk lymph node sites (left levels 2-5), and 5412 cGy delivered to the low risk mucosal sites (nasopharynx, larynx, hypopharynx) bilateral high level 2, bilateral supraclavicular fossa, and right neck levels 2-5). The patient did receive concurrent chemotherapy with high dose cisplatin (cycle 1: 02/10, cycle 2: 03/02, cycle 3: 03/23). Date of First Treatment: 02/10/2019 Date of Last Treatment: 03/25/2019 - Past Medical/Social History Past Medical History Cancer: Other Other Cancer History: carcinoma of unknown primary Social History Social History: No changes Smoking Status Former smoker Review of Systems Constitutional:: Reports: Weakness - Slowly improving, able to do ADL independently, Fatigue, Weight gain - Regaining lost weight. Denies: Fever, Sweats, Weight loss, Appetite change, Chills Cardiovascular:: Reports: Dyspnea on exertion. Denies: Chest pain, Palpitations, Orthopnea, PND, Shortness of breath Respiratory: Reports: Shortness of breath upon exertion. Denies: Cough, Hemoptysis, Shortness of Breath, Wheezing Gastrointestinal:: Reports: Dysphagia - Improving. Denies: Abdominal pain, Nausea, Vomiting, Diarrhea, Constipation, Hematochezia Genitourinary: Denies: Dysuria, Hematuria, 15, Flank pain Musculoskeletal:: Denies: Back pain, Myalgia, Arthralgia Skin: Reports: Skin Changes - The left neck improving. Denies: Rash, Wounds Neurological:: Denies: Headache, Dizziness, Visual changes, Tinnitus, Hearing loss Psychiatric: Denies: Anxiety, Depression, Homicidal Ideations, Suicidal Ideations Vital Signs Height 5 ft 6 in Weight: 56.518 kg Weight in Pounds 124.6 lbs BMI 22.6 Pulse Ox 97 - Physical Exam General: Alert, Oriented x3, No apparent distress, - - ECOG 1 HEENT: Atraumatic, PERRLA, EOMI, Normocephalic Oropharynx:: Dry mucosa Neck:: Supple, Trachea midline, - - Port okay. Negative for: JVD, bilateral Cardiac:: Regular rate, Regular rhythm, Normal S1, Normal S2. Negative for: Murmur Lungs: Clear to auscultation, Diminished, Excusion symmetrical. Negative for: Rhonchi, Wheezes Abdomen:: Soft, Non-tender, Non-distended, - - PEG tube okay. Negative for: Hepatosplenomegaly Extremities:: Negative for: Cyanosis, Edema Neurological: Neuro grossly intact Skin:: Redness - Left neck. Negative for: Lesions, Rash, Petechiae, Ecchymosis Psychiatric:: Appropriate affect, Euthymic Lymphatics:: Negative for: Cervical lymphadenopathy, Supraclavicular lymphadenopathy Laboratory Data: Laboratory Tests WBC 6.3 (4.4-11.0) K/mm3 RBC 2.93 L (4.6-6.2) M/mm3 Hgb 9.4 L (13.0-16.5) g/dL Hct 26.4 L (40-54) % MCV 90.1 (80-94) fL MCH 32.1 H (27.0-32.0) pg Diagnostic Data: Diagnostic Data PET, CT Tumor Imaging 01/05/19 10:00 IMPRESSION: 1. ABNORMAL EXAMINATION INDICATIVE OF MALIGNANT-VIABLE NEOPLASM. 2. Increased glucose concentration observed in the left lateral neck fulfills quantitative criteria for viable neoplasm. 3. Asymmetric enhanced FDG distribution noted in the left pharyngeal mucosal space may be further investigated with rigorous clinical examination. 4. No other quantitatively significant hypermetabolic abnormalities are noted. There is no definitive scintigraphic evidence of distant metastatic disease. Electronic Signature Narendra Weathers D.O. 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 Patient is status post tonsillectomies and uveal excision yet no primary identified. In addition he has indeterminate too small to further characterize lung nodules on chest CT. Comorbid conditions: Smoking and excessive alcohol until the time of diagnosis of malignancy. Plan: 1-concluded primary radiation therapy + chemosensitization with high-dose cisplatin, January -March 2019 tolerated without excessive toxicities 2- continue with weekly close monitoring, IV fluid hydration to support limited oral and PEG tube intake Saturday and Saturday this week and reassess in 1 week and gradually weaning off. 3-chest imaging April 2019. Impression and plan reviewed with patient . Quincy Simpson MD Environmental Services Floor Tech, [facility] Divisions of Medical Oncology AND Hematology Department of Internal Medicine [place] [phone] This note was generated using a voice recognition system software. Although it was reviewed by the author prior to finalization, it may still contain incorrect words, spelling, and punctuation that were not noted when reviewing prior to saving. If a clinically significant typo or inaccurately typed phrase is noted, please notify the author. Medications: Prescriptions This Visit Medication Instructions Recorded Thiamine Hydrochloride [Vitamin B1] 1 tab PO DAILY 01/05/19 Magic Mouth Wash 15 ml PO Q6H PRN PRN #240 ml 02/25/19 Oxycodone HCl 5 mg PO Q6H PRN PRN #40 tablet 03/04/19 Medications Added to Medication List This Visit 0.9% Normal Saline 1,000 ml Med 04/13/19 09:20 Ordered IV [facility] Primary Care Provider: Kya Gonzalez NP Referring Provider: 04/13/19 0943 <Electronically signed by Quincy Simpson MD> Date Quincy Simpson MD Cosigner Signature: Date (if applicable) CC: Kya Gonzalez Start: 04-06-2019 End: 04-06-2019 Oncology Follow-Up Visit Comments: See Note; NOTES: [facility] Medical Records Department [address] [place] [address] Oncology Follow-Up Visit 04/06/19 1053 MR#: [id number] Acct: [id number] Name: MY JAMA Rep #: [id number] : 1960 58 From: Santiago Sellers DO PCP: Kya Gonzalez NP Status: REG RCR Y Location: [facility] Date of Service: 04/06/19 Last Clinic Visit: 03/25/19 Diagnosis: My Jama is a 58-year-old male diagnosed with 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 From 02/10/2019 - 03/25/2019 he received definitive chemoradiation therapy consisting of 6996 cGy in 33 fractions with concurrent high dose cisplatin. History of Present Illness: 04/28/2018: Patient underwent EGD due to odynophagia. This demonstrated significant esophagitis in the distal esophagus measuring 1-2 cm in length. Biopsy was obtained. Duodenum and stomach appeared normal. Pathology demonstrated focal changes suggestive of reflux. 12/15/2018: Patient presented to with a left-sided lump involving his neck which was firm and nontender. This lesion was present for about 3-4 weeks. 12/17/2018: CT neck and chest was completed. There are a few small scattered pulmonary nodules present with the largest in the right upper lobe anterior segment measuring 5 mm with solid features and smooth margins. Recommended to have follow-up low-dose chest CT in 1 year for pulmonary nodule surveillance. There is a rim-enhancing centrally cystic mass distal to the angle of the mandible lateral to the hyoid cartilage along the anterior margin of the sternocleidomastoid muscle with wall thickness up to 4.9 mm. Process measures approximately 1.8 cm craniocaudal and 2 1.8 cm transverse and 2.9 cm AP. Posteriorly and deep to the SCM there is a 1.2 x 1.6 cm mildly enlarged lymph node and a few additional shotty lymph nodes present on the left. No evidence of cervical adenopathy on the right. Pharyngeal and laryngeal soft tissues appear normal. 12/22/2018: Ultrasound-guided FNA of the left neck mass was completed and pathology demonstrated malignant cells consistent with keratinizing squamous cell carcinoma with extensive necrosis, p16 negative. 12/31/2018: Evaluation by medical oncology. Recommended ENT evaluation with panendoscopy and PET/CT for staging. 01/02/2019: Patient was evaluated by ENT. On exam he was noted to have a large fixed left cervical radha conglomerate. Also noted was a 1 cm cystic lesion of the uvula. Otherwise oral and oropharyngeal mucosa were normal. Flexible laryngoscopy was performed which demonstrated no evidence of lesion. Small cystic lesion of the uvula was felt to be benign. 01/05/2019: PET scan was performed which demonstrated 2 separate nodular foci of increased glucose metabolism manifest in the left lateral neck level 3 generating a calculated maximum SUV of 8.6 with the larger soft tissue density demonstrating central photopenia in the largest corresponding lesion measured on CT is 2.8 cm x 3.5 cm. There is asymmetric increased FDG distribution defined in the left pharyngeal mucosal space generating a calculated maximum SUV of 3.4 with a maximum axial diameter of corresponding metabolic abnormality measuring 1.9 cm. There is no evidence of metastatic disease identified. Recommendation is to closely clinically evaluate the left pharyngeal area lesion for primary disease. 01/08/2019: Patient underwent dental extraction of numbers 7 through 13 and #14. 01/13/2019: Patient underwent dental extraction of #6 and 2 through 5, he also completed amalgam fillings of #21 through 22 and 28. Following this procedure he was confirmed to be cleared for radiation therapy. 01/26/2019: Patient underwent placement of PEG tube and port. 01/30/2019: Patient completed left tonsil excision and uvula excision. Pathology displayed no evidence of malignancy or high-grade squamous dysplasia. There was noted to be submucosal dilated minor salivary gland duct with oncocytic metaplasia in the uvula. From 02/10/2019 - 03/25/2019: Received 6996 cGy delivered to gross disease involving the left neck, 5940 cGy to the high risk mucosal sites (entire oropharynx) and high risk lymph node sites (left levels 2-5), and 5412 cGy delivered to the low risk mucosal sites (nasopharynx, larynx, hypopharynx) bilateral high level 2, bilateral supraclavicular fossa, and right neck levels 2-5). Treatment was completed using dose painting IMRT and a single VMAT plan and he received concurrent chemotherapy with high dose cisplatin (cycle 1: 02/10, cycle 2: 03/02, cycle 3: 03/23). Radiation Treatment History: 1) From 02/10/2019 - 03/25/2019: Received 6996 cGy delivered to gross disease involving the left neck, 5940 cGy to the high risk mucosal sites (entire oropharynx) and high risk lymph node sites (left levels 2-5), and 5412 cGy delivered to the low risk mucosal sites (nasopharynx, larynx, hypopharynx) bilateral high level 2, bilateral supraclavicular fossa, and right neck levels 2-5). Treatment was completed using dose painting IMRT and a single VMAT plan and he received concurrent chemotherapy with high dose cisplatin (cycle 1: 02/10, cycle 2: 03/02, cycle 3: 03/23). Interval History: Patient presents for short interval follow-up 2 weeks after completing definitive chemoradiation. He continues to have discomfort particularly with swallowing which measures 8 out of 10. He is taking oxycodone 5 mg 3 times per day and 2 times at night for pain relief and this does make the pain more manageable. He is also using Magic mouthwash 4 times per day. He drinks water by mouth but this is limited due to discomfort. Everything else is being taken through his PEG tube. He reports 8 tube feedings per day per dietitian recommendations. He continues to have thickened saliva and is doing clear Sprite rinses but not using Mucinex. He denies having coughing with swallowing. He reports continued skin irritation on the left neck but this is not painful and is healing well. He also believes the left neck adenopathy has improved in the last 2 weeks. He is continuing to use salt and soda gargles and using green tea gargles. He does have fatigue but completes all activities of daily living without difficulty. He completed treatment for thrush about a week ago. He continues to have hoarseness which is stable to improved since completing treatment. He denies having headaches, vision changes, changes in hearing, cough, shortness of breath, fever/chills. He received IV fluids every day last week. He denies dizziness upon standing and is urinating without difficulty, urine is clear. I have reviewed the medical, surgical, and other pertinent history in details and have updated medication and allergy information in the electronic medical record. Review of Systems: A 12-point review of systems was completed and was negative except for what is noted in the HPI/Interval History and by the nurse. Height/Weight/BMI: Height: 5 ft 6 in Weight: 121 lbs (weight at end of [employer] 03/25/2019: 126.6 lbs) Vital Signs Temperature 100.3 F H 04/06/19 10:24 Temperature Source Oral 04/06/19 10:24 Pulse Rate 99 04/06/19 10:24 Respiratory Rate 16 04/06/19 10:24 Physical Exam: ECO KARNOFSKY SCORE: 70-80% CONSTITUTIONAL: Well-developed, well-nourished, and in no apparent distress. HEENT: Mucous membranes moist. Evidence of left tonsillectomy extending to the soft palate and including the uvula area appears to be healing well. confluent erythema and mucositis present in the visualized oropharynx. No trismus. Patient has 8 lower teeth remaining which are without caries or infection, remaining teeth were previously removed and gingiva are are well-healed. Pupils are equal, round, and reactive to light and accommodation. Extraocular movements are intact. Sclerae are anicteric. NECK: Supple,with no thyromegaly, and non-tender. Trachea midline. The left neck level 2 3 firm adenopathy is now softened and reduced in size measuring approximately 2 cm. Left neck patchy moist desquamation present, erythema bilaterally, no other areas of peeling or dryness. No other cervical or supraclavicular adenopathy noted. CARDIAC: Regular rate and rhythm. Normal S1, S2. No murmurs, rubs, or gallops. PULMONARY/CHEST: Lungs are clear to auscultation and percussion bilaterally. No wheezes, rhonchi, or crackles noted. No increased work of breathing. ABDOMINAL: Abdomen soft, non-tender, non-distended. No hepatomegaly. Normoactive bowel sounds in all four quadrants. No guarding, rebound. BACK: Straight and aligned. No CVA tenderness. Axial skeleton non-tender to percussion. EXTREMITIES: Full range of motion in all four extremities, with normal strength equally and symmetrically. No evidence of edema. No clubbing. NEUROLOGICAL EXAM: Alert and oriented x 3. Cranial nerves II through XII are grossly intact. No focal neurological deficit. Speech is fluent. There is no upper or lower extremity sensory deficit or motor deficit. Muscle strength is 5/5 in all muscle groups. Gait and posture are steady. PSYCHIATRIC: Appropriate mood and affect for the clinical situation. 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 From 02/10/2019 - 03/25/2019 he received definitive chemoradiation therapy consisting of 6996 cGy in 33 fractions with concurrent high dose cisplatin. Patient returns 2 weeks after completing definitive chemoradiation. He continues to experience treatment-related toxicities including mucositis/odynophagia, hoarseness, skin erythema/peeling, thickened saliva, taste loss, and has weight loss secondary to reduced intake. I reviewed continued management of toxicities including oxycodone/Magic mouthwash for pain control, oxycodone refilled today. Also skin care was discussed using lotion on the bilateral neck and continuing strata XRT on the left neck area of peeling. Continue diet Sprite rinses for thick saliva and initiate Mucinex. He will continue to get fluids this week per medical oncology to maintain hydration. I discussed with him at length the need to weigh himself daily and increase his intake to prevent weight loss, will have nutrition services follow-up with him today for further discussion. We will plan to get CT chest in 1 month to monitor previously noted small lung nodules and planning for posttreatment PET scan at 3 months. He will continue to follow-up with ENT at , given his nice response in the left neck adenopathy I believe observation until the PET scan will be reasonable before deciding if any surgery is necessary. He will return to clinic in 2 weeks to maintain close observation and ensure appropriate management of toxicities. He was instructed to call with any further questions or concerns in the interim. Santiago Sellers DO, MS Environmental Services Floor Tech, Department of Radiation Oncology [facility] 04/06/19 1102 <Electronically signed by Santiago Sellers DO> Date Santiago Sellers DO CC: Rachel Brooks MD; Quincy Simpson MD Signed Kya Monica Start: 04-06-2019 End: 04-06-2019 Oncology Visit Report Comments: See Note; NOTES: [facility] [place] [address] [place] [address] OFFICE VISIT Date of Service: 04/06/19 1030 MR#: [id number] Acct: [id number] Name: ANAMY W Rep #: [id number] : 1960 From: Quincy Simpson MD Age/Sex: 58/M Location: OMD Status: Signed - Problem List (1) Head and neck cancer Status: Acute (2) Regional lymph node metastasis present Status: Acute - Date of Service Date of Service:: 04/06/19 - Chief Complaint Head and neck cancer - History of Present Illness 58-year-old male smoker and active alcoholic who presented with a painless left neck mass that has progressively increased in size over the course of the past couple of months. December 17, 2018 CT soft tissues of the neck: FINDINGS: There is a rim-enhancing centrally cystic mass distal to the angle the mandible, lateral to the hyoid cartilage, along the anterior margin of the sternocleidomastoid muscle. Wall thickness up to 4.9 mm. Process measures approximately 1.8 cm craniocaudal, 1.8 cm transverse, 2.9 cm anterior-posterior. Posteriorly and deep to the sternomastoid muscle, single mildly enlarged lymph node measuring 1.2 x 1.6 cm. A few additional shotty lymph nodes are present on the left. Normal thyroid. Normal submandibular glands and parotid glands. There is no right cervical lymphadenopathy. Pharyngeal and laryngeal soft tissues appear normal. Multilevel cervical spondylosis with disc disease most notable at C5-C6 with uncovertebral joint hypertrophy contributing to mild foraminal narrowing. Mucoperiosteal thickening and mucous retention cysts of the maxillary sinuses. Solitary opacified posterior right ethmoid sinus. Mastoid air cells and middle ear cavities clear. 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 December 17, 2018 CT chest: FINDINGS: Supraclavicular: No acute process within the [id number]. Body wall soft tissues: No acute process. Upper abdomen: No acute process. Osseous structures: No acute process. Mild scoliosis, moderate kyphosis, mild multilevel thoracic spondylosis. Mediastinum: No acute process. Cardiovascular: No acute process. Lungs: A few small scattered pulmonary nodules are present. The largest is in the right upper lobe anterior segment, series 6 image 73, 5 cm, solid features, smooth margins. Unremarkable airways. IMPRESSION: No acute thoracic process is evident. Small pulmonary nodules. The largest measures approximately 5 mm. Follow-up low-dose CT chest is recommended in 1 year for pulmonary nodule surveillance purposes. December 22, 2018 DIAGNOSIS CYTOLOGY A. 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 See comment. B. 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 ANTIBODY / CLONE RESULT Block A AE1-3 (AE1/AE3/PCK26) positive CK7 (OV-TL12/30) negative CK8 (33vkpkW78) positive, weak CK20 (KS20.8) negative TTF-1 (8G7G3/1) negative Napsin A (Rabbit Polyclonal) negative HepPar (OCh1E5) negative RCC (PN-15) negative PSAP (PASE/4LJ) negative CK5-6 (D5 AND 1684) positive P16 (E6H4) negative P40 (BC28) positive, focal January 02, 2019: Patient was evaluated by ENT : oral and oropharyngeal mucosa were normal. Flexible laryngoscopy was performed which demonstrated no evidence of lesion. Small cystic lesion of the uvula was felt to be benign. January 05, 2019 PET/CT: IMPRESSION: 1. ABNORMAL EXAMINATION INDICATIVE OF MALIGNANT-VIABLE NEOPLASM. 2. Increased glucose concentration observed in the left lateral neck fulfills quantitative criteria for viable neoplasm. 3. Asymmetric enhanced FDG distribution noted in the left pharyngeal mucosal space may be further investigated with rigorous clinical examination. 4. No other quantitatively significant hypermetabolic abnormalities are noted. There is no definitive scintigraphic evidence of distant metastatic disease. January 30, 2019: left tonsil excision and uvula excision. Pathology displayed no evidence of malignancy or high-grade squamous dysplasia. There was noted to be submucosal dilated minor salivary gland duct with oncocytic metaplasia in the uvula. In preparation for locoregional combined chemoradiation patient Patient underwent multiple dental extractions, placement of PEG tube and port. Treatment: Combined high-dose cisplatin and radiation January through March 2019: 6996 cGy delivered to gross disease involving the left neck, 5940 cGy to the high risk mucosal sites (entire oropharynx) and high risk lymph node sites (left levels 2-5), and 5412 cGy delivered to the low risk mucosal sites (nasopharynx, larynx, hypopharynx) bilateral high level 2, bilateral supraclavicular fossa, and right neck levels 2-5). The patient did receive concurrent chemotherapy with high dose cisplatin (cycle 1: 02/10, cycle 2: 03/02, cycle 3: 03/23). Date of First Treatment: 02/10/2019 Date of Last Treatment: 03/25/2019 - Past Medical/Social History Past Medical History Cancer: Other Other Cancer History: carcinoma of unknown primary Social History Social History: No changes Smoking Status Former smoker Review of Systems Constitutional:: Reports: Weakness, Fatigue, Weight loss. Denies: Fever, Sweats, Appetite change, Chills Cardiovascular:: Denies: Chest pain, Palpitations, Dyspnea on exertion, Orthopnea, PND, Shortness of breath Respiratory: Denies: Cough, Hemoptysis, Shortness of Breath, Wheezing Gastrointestinal:: Reports: Dysphagia. Denies: Abdominal pain, Nausea, Vomiting, Diarrhea, Constipation, Hematochezia Genitourinary: Denies: Dysuria, Hematuria, 15, Flank pain Musculoskeletal:: Denies: Back pain, Myalgia, Arthralgia Skin: Reports: Skin Changes - Neck, improving radiation burn. Denies: Wounds Neurological:: Reports: Hearing loss - Chronic unchanged. Denies: Headache, Dizziness, Visual changes, Tinnitus Psychiatric: Denies: Anxiety, Depression, Homicidal Ideations, Suicidal Ideations Vital Signs Height 5 ft 6 in Weight: 54.885 kg Weight in Pounds 121.0 lbs BMI 22.6 Pulse Ox 98 - Physical Exam General: Alert, Oriented x3, No apparent distress, - - ECOG 2 HEENT: Atraumatic, PERRLA, EOMI, Normocephalic Oropharynx:: Dry mucosa, - - No thrush Neck:: Supple, Trachea midline, - - Port okay. Negative for: JVD, bilateral Cardiac:: Regular rate, Regular rhythm, Normal S1, Normal S2. Negative for: Murmur Lungs: Clear to auscultation, Diminished, Excusion symmetrical. Negative for: Rhonchi, Wheezes Abdomen:: Soft, Non-tender, Non-distended, - - PEG tube okay. Negative for: Hepatosplenomegaly Extremities:: Negative for: Cyanosis, Edema Neurological: Neuro grossly intact Skin:: Redness - Left neck radiation area. Negative for: Lesions, Rash, Petechiae, Ecchymosis Psychiatric:: Appropriate affect, Euthymic Lymphatics:: Negative for: Cervical lymphadenopathy, Supraclavicular lymphadenopathy Laboratory Data: Microbiology 03/31/19 12:23 Blood Culture - Final Blood Culture (Wb) - Port No growth in 5 days. 03/31/19 12:30 Blood Culture - Final Blood Culture (Wb) - Anticubital Left No growth in 5 days. 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 Patient is status post tonsillectomies and uveal excision yet no primary identified. In addition he has indeterminate too small to further characterize lung nodules on chest CT. Comorbid conditions: Smoking and excessive alcohol until the time of diagnosis of malignancy. Plan: 1-concluded primary radiation therapy + chemosensitization with high-dose cisplatin, January -March 2019 tolerated without excessive toxicities 2- continue with weekly close monitoring, IV fluid hydration to support limited oral and PEG tube intake Saturday and Saturday this week and reassess in 1 week. 3-localized superficial infection/mechanical irritation right thumb improving. 4-chest imaging April 2019. Impression and plan reviewed with patient . Quincy Simpson MD Environmental Services Floor Tech, [facility] Divisions of Medical Oncology AND Hematology Department of Internal Medicine [place] [phone] This note was generated using a voice recognition system software. Although it was reviewed by the author prior to finalization, it may still contain incorrect words, spelling, and punctuation that were not noted when reviewing prior to saving. If a clinically significant typo or inaccurately typed phrase is noted, please notify the author. Medications: Prescriptions This Visit Medication Instructions Recorded Thiamine Hydrochloride [Vitamin B1] 1 tab PO DAILY 01/05/19 Magic Mouth Wash 15 ml PO Q6H PRN PRN #240 ml 02/25/19 Oxycodone HCl 5 mg PO Q6H PRN PRN #40 tablet 03/04/19 Primary Care Provider: Kya Gonzalez NP Referring Provider: 04/06/19 1100 <Electronically signed by Quincy Simpson MD> Date Quincy Simpson MD Cosigner Signature: Date (if applicable) CC: Kya Gonzalez Start: 03-31-2019 Bacteria identified in Blood by Culture [employer] Kya Gonzalez [employer] Work Phone: Start: 03-30-2019 End: 03-30-2019 Oncology Visit Report Comments: See Note; NOTES: [facility] [address] [place] [id number] OFFICE VISIT Date of Service: 03/30/19 09 MR#: [id number] Acct: [id number] Name: MY JAMA Rep #: [id number] : 1960 From: Quincy Simpson MD Age/Sex: 58/M Location: ONC Status: Signed - Problem List (1) Head and neck cancer Status: Acute (2) Regional lymph node metastasis present Status: Acute - Date of Service Date of Service:: 03/30/19 - Chief Complaint Head and neck cancer - History of Present Illness 58-year-old male smoker and active alcoholic who presented with a painless left neck mass that has progressively increased in size over the course of the past couple of months. December 17, 2018 CT soft tissues of the neck: FINDINGS: There is a rim-enhancing centrally cystic mass distal to the angle the mandible, lateral to the hyoid cartilage, along the anterior margin of the sternocleidomastoid muscle. Wall thickness up to 4.9 mm. Process measures approximately 1.8 cm craniocaudal, 1.8 cm transverse, 2.9 cm anterior-posterior. Posteriorly and deep to the sternomastoid muscle, single mildly enlarged lymph node measuring 1.2 x 1.6 cm. A few additional shotty lymph nodes are present on the left. Normal thyroid. Normal submandibular glands and parotid glands. There is no right cervical lymphadenopathy. Pharyngeal and laryngeal soft tissues appear normal. Multilevel cervical spondylosis with disc disease most notable at C5-C6 with uncovertebral joint hypertrophy contributing to mild foraminal narrowing. Mucoperiosteal thickening and mucous retention cysts of the maxillary sinuses. Solitary opacified posterior right ethmoid sinus. Mastoid air cells and middle ear cavities clear. 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 December 17, 2018 CT chest: FINDINGS: Supraclavicular: No acute process within the [id number]. Body wall soft tissues: No acute process. Upper abdomen: No acute process. Osseous structures: No acute process. Mild scoliosis, moderate kyphosis, mild multilevel thoracic spondylosis. Mediastinum: No acute process. Cardiovascular: No acute process. Lungs: A few small scattered pulmonary nodules are present. The largest is in the right upper lobe anterior segment, series 6 image 73, 5 cm, solid features, smooth margins. Unremarkable airways. IMPRESSION: No acute thoracic process is evident. Small pulmonary nodules. The largest measures approximately 5 mm. Follow-up low-dose CT chest is recommended in 1 year for pulmonary nodule surveillance purposes. December 22, 2018 DIAGNOSIS CYTOLOGY A. 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 See comment. B. 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 ANTIBODY / CLONE RESULT Block A AE1-3 (AE1/AE3/PCK26) positive CK7 (OV-TL12/30) negative CK8 (13dpotL94) positive, weak CK20 (KS20.8) negative TTF-1 (8G7G3/1) negative Napsin A (Rabbit Polyclonal) negative HepPar (OCh1E5) negative RCC (PN-15) negative PSAP (PASE/4LJ) negative CK5-6 (D5 AND 1684) positive P16 (E6H4) negative P40 (BC28) positive, focal January 02, 2019: Patient was evaluated by ENT : oral and oropharyngeal mucosa were normal. Flexible laryngoscopy was performed which demonstrated no evidence of lesion. Small cystic lesion of the uvula was felt to be benign. January 05, 2019 PET/CT: IMPRESSION: 1. ABNORMAL EXAMINATION INDICATIVE OF MALIGNANT-VIABLE NEOPLASM. 2. Increased glucose concentration observed in the left lateral neck fulfills quantitative criteria for viable neoplasm. 3. Asymmetric enhanced FDG distribution noted in the left pharyngeal mucosal space may be further investigated with rigorous clinical examination. 4. No other quantitatively significant hypermetabolic abnormalities are noted. There is no definitive scintigraphic evidence of distant metastatic disease. January 30, 2019: left tonsil excision and uvula excision. Pathology displayed no evidence of malignancy or high-grade squamous dysplasia. There was noted to be submucosal dilated minor salivary gland duct with oncocytic metaplasia in the uvula. In preparation for locoregional combined chemoradiation patient Patient underwent multiple dental extractions, placement of PEG tube and port. Treatment: Combined high-dose cisplatin and radiation January through March 2019: 6996 cGy delivered to gross disease involving the left neck, 5940 cGy to the high risk mucosal sites (entire oropharynx) and high risk lymph node sites (left levels 2-5), and 5412 cGy delivered to the low risk mucosal sites (nasopharynx, larynx, hypopharynx) bilateral high level 2, bilateral supraclavicular fossa, and right neck levels 2-5). The patient did receive concurrent chemotherapy with high dose cisplatin (cycle 1: 02/10, cycle 2: 03/02, cycle 3: 03/23). Date of First Treatment: 02/10/2019 Date of Last Treatment: 03/25/2019 - Past Medical/Social History Past Medical History Cancer: Other Other Cancer History: carcinoma of unknown primary Social History Social History: No changes Smoking Status Former smoker Review of Systems Constitutional:: Reports: Weakness, Fatigue, Weight loss. Denies: Fever, Sweats, Appetite change, Chills Cardiovascular:: Denies: Chest pain, Palpitations, Dyspnea on exertion, Orthopnea, PND, Shortness of breath Respiratory: Reports: Cough, Sputum production. Denies: Hemoptysis, Shortness of Breath, Wheezing Gastrointestinal:: Reports: Dysphagia - Painful. Denies: Abdominal pain, Nausea, Vomiting, Diarrhea, Constipation, Hematochezia Genitourinary: Denies: Dysuria, Hematuria, 15, Flank pain Musculoskeletal:: Denies: Back pain, Myalgia, Arthralgia Skin: Reports: Skin Changes - Right thumb, appears to be induced by opening cans. Denies: Rash, Wounds Neurological:: Reports: Paresthesias - Fingertips, Hearing loss. Denies: Headache, Dizziness, Visual changes, Tinnitus Psychiatric: Denies: Anxiety, Depression, Homicidal Ideations, Suicidal Ideations Vital Signs Height 5 ft 6 in Weight: 57.425 kg Weight in Pounds 126.6 lbs BMI 22.6 Pulse Ox 97 - Physical Exam General: Alert, Oriented x3, No apparent distress, - - Hoarse, ECOG 2, tired looking HEENT: Atraumatic, PERRLA, EOMI, Normocephalic Oropharynx:: Dry mucosa, - - No thrush Neck:: Supple, Trachea midline, - - Port okay. Negative for: JVD, bilateral Cardiac:: Regular rate, Regular rhythm, Normal S1, Normal S2. Negative for: Murmur Lungs: Clear to auscultation, Diminished, Excusion symmetrical. Negative for: Rhonchi, Wheezes Abdomen:: Soft, Non-tender, Non-distended, - - PEG tube okay. Negative for: Hepatosplenomegaly Extremities:: Negative for: Cyanosis, Edema Neurological: Neuro grossly intact Skin:: Redness - Left neck skin erythema consistent with first-degree type burn from radiation Right thumb localized erythema with minimal swelling consistent with a superficial localized infection/mechanical irritation. Negative for: Lesions, Rash, Petechiae, Ecchymosis Psychiatric:: Appropriate affect, Euthymic Lymphatics:: Cervical lymphadenopathy. Negative for: Supraclavicular lymphadenopathy, Axillary lymphadenopathy Laboratory Data: Laboratory Tests Diagnostic Data: Diagnostic Data PET, CT Tumor Imaging 01/05/19 10:00 IMPRESSION: 1. ABNORMAL EXAMINATION INDICATIVE OF MALIGNANT-VIABLE NEOPLASM. 2. Increased glucose concentration observed in the left lateral neck fulfills quantitative criteria for viable neoplasm. 3. Asymmetric enhanced FDG distribution noted in the left pharyngeal mucosal space may be further investigated with rigorous clinical examination. 4. No other quantitatively significant hypermetabolic abnormalities are noted. There is no definitive scintigraphic evidence of distant metastatic disease. Electronic Signature Narendra Weathers D.O. 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 Patient is status post tonsillectomies and uveal excision yet no primary identified. In addition he has indeterminate too small to further characterize lung nodules on chest CT. Comorbid conditions: Smoking and excessive alcohol until the time of diagnosis of malignancy. Plan: 1-concluded primary radiation therapy + chemosensitization with high-dose cisplatin, January -March 2019 tolerated without excessive toxicities 2- continue with weekly close monitoring, IV fluid hydration to support limited oral and PEG tube intake daily this week and reassess. 3-localized superficial infection/mechanical irritation right thumb advised to apply topical antibiotic and if worsening over the upcoming [address] Gibson for drainage if needed' . Impression and plan reviewed with patient and his daughter. Quincy Simpson MD Environmental Services Floor Tech, [facility] Divisions of Medical Oncology AND Hematology Department of Internal Medicine [place] [phone] This note was generated using a voice recognition system software. Although it was reviewed by the author prior to finalization, it may still contain incorrect words, spelling, and punctuation that were not noted when reviewing prior to saving. If a clinically significant typo or inaccurately typed phrase is noted, please notify the author. Medications: Prescriptions This Visit Medication Instructions Recorded Medications Added to Medication List This Visit 0.9% Normal Saline 1,000 ml Med 03/30/19 09:25 Active IV MOWEFR Primary Care Provider: Kya Gonzalez NP Referring Provider: 03/30/19 1007 <Electronically signed by Quincy Simpson MD> Date Quincy Simpson MD Cosigner Signature: Date (if applicable) CC: Kya Gonzalez Start: 03-25-2019 End: 03-25-2019 End of Treatment Summary Comments: See Note; NOTES: [facility] [place] [address] End of Treatment Summary Date of Service: 03/25/19 1125 MR#: [id number] Acct: [id number] Name: MY JAMA Rep #: [id number] : 1960 From: Santiago Sellers DO Age/Sex: 58/M Location: ONC Status: Signed End of Treatment Summary: Diagnosis: My Jama is a 58-year-old male diagnosed with 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 Oncologic History: 04/28/2018: Patient underwent EGD due to odynophagia. This demonstrated significant esophagitis in the distal esophagus measuring 1-2 cm in length. Biopsy was obtained. Duodenum and stomach appeared normal. Pathology demonstrated focal changes suggestive of reflux. 12/15/2018: Patient presented to with a left-sided lump involving his neck which was firm and nontender. This lesion was present for about 3-4 weeks. 12/17/2018: CT neck and chest was completed. There are a few small scattered pulmonary nodules present with the largest in the right upper lobe anterior segment measuring 5 mm with solid features and smooth margins. Recommended to have follow-up low-dose chest CT in 1 year for pulmonary nodule surveillance. There is a rim-enhancing centrally cystic mass distal to the angle of the mandible lateral to the hyoid cartilage along the anterior margin of the sternocleidomastoid muscle with wall thickness up to 4.9 mm. Process measures approximately 1.8 cm craniocaudal and 2 1.8 cm transverse and 2.9 cm AP. Posteriorly and deep to the SCM there is a 1.2 x 1.6 cm mildly enlarged lymph node and a few additional shotty lymph nodes present on the left. No evidence of cervical adenopathy on the right. Pharyngeal and laryngeal soft tissues appear normal. 12/22/2018: Ultrasound-guided FNA of the left neck mass was completed and pathology demonstrated malignant cells consistent with keratinizing squamous cell carcinoma with extensive necrosis, p16 negative. 12/31/2018: Evaluation by medical oncology. Recommended ENT evaluation with panendoscopy and PET/CT for staging. 01/02/2019: Patient was evaluated by ENT. On exam he was noted to have a large fixed left cervical radha conglomerate. Also noted was a 1 cm cystic lesion of the uvula. Otherwise oral and oropharyngeal mucosa were normal. Flexible laryngoscopy was performed which demonstrated no evidence of lesion. Small cystic lesion of the uvula was felt to be benign. 01/05/2019: PET scan was performed which demonstrated 2 separate nodular foci of increased glucose metabolism manifest in the left lateral neck level 3 generating a calculated maximum SUV of 8.6 with the larger soft tissue density demonstrating central photopenia in the largest corresponding lesion measured on CT is 2.8 cm x 3.5 cm. There is asymmetric increased FDG distribution defined in the left pharyngeal mucosal space generating a calculated maximum SUV of 3.4 with a maximum axial diameter of corresponding metabolic abnormality measuring 1.9 cm. There is no evidence of metastatic disease identified. Recommendation is to closely clinically evaluate the left pharyngeal area lesion for primary disease. 01/08/2019: Patient underwent dental extraction of numbers 7 through 13 and #14. 01/13/2019: Patient underwent dental extraction of #6 and 2 through 5, he also completed amalgam fillings of #21 through 22 and 28. Following this procedure he was confirmed to be cleared for radiation therapy. 01/26/2019: Patient underwent placement of PEG tube and port. 01/30/2019: Patient completed left tonsil excision and uvula excision. Pathology displayed no evidence of malignancy or high-grade squamous dysplasia. There was noted to be submucosal dilated minor salivary gland duct with oncocytic metaplasia in the uvula. The patient completed a course of external beam radiotherapy in our department. This treatment was delivered for curative intent. Treatment was given according to the following parameters: MY JAMA received 6996 cGy delivered to gross disease involving the left neck, 5940 cGy to the high risk mucosal sites (entire oropharynx) and high risk lymph node sites (left levels 2-5), and 5412 cGy delivered to the low risk mucosal sites (nasopharynx, larynx, hypopharynx) bilateral high level 2, bilateral supraclavicular fossa, and right neck levels 2-5). Treatment was completed using dose painting IMRT and a single VMAT plan consisting of 2 arcs using 6 MV photons. The patient did receive concurrent chemotherapy with high dose cisplatin (cycle 1: 02/10, cycle 2: 03/02, cycle 3: 03/23). Date of First Treatment: 02/10/2019 Date of Last Treatment: 03/25/2019 Total Elapsed Days (including weekend and holidays): 43 Missed Treatments: none Response and Tolerance: The patient tolerated this course of radiotherapy well overall. The following radiation related toxicities developed during the course of radiation therapy: * Grade 2-3 skin erythema with left neck moist desquamation toxicity which was treated with StrataXRT and Aquaphor * Grade 1 fatigue * Grade 2 odynophagia with reduced oral intake requiring PEG tube feeding for full nutritional support, fluids continued by mouth. He was treated with MMW and oxycodone 5 mg qid as well as chloraseptic prn. * Severe Dysgeusia with complete taste loss and moderate xerostomia with thickened saliva treated with clear soda rinses * He developed thrush which was treated with Fluconazole Total weight change during therapy: 10 lb weight loss At the end of therapy the physical examination showed persistent enlargement of the left neck adenopathy involving levels 2-3 which was stable in size and possibly slightly decreased, composition of the mass has changed and it is softer. Disposition: The patient tolerated the planned course of radiation therapy well without unexpected toxicity in an appropriate time course. I will have him follow-up in 2 weeks for a routine visit to assess improvement radiation toxicity. He was provided instructions for skin care, to increase PEG tube feeding by nutrition services, and oral care. The patient will maintain scheduled follow-up visits with the other providers and is planning to receive fluids per medical oncology and has a follow up with ENT in a few weeks. If we can provide any further information on this patient's course of care, please do not hesitate to ask. We would like to thank you very much for allowing us to participate in the care of this patient. Sincerely, Santiago Sellers DO, MS Environmental Services Floor Tech, Department of Radiation Oncology [facility] 03/25/19 1149 <Electronically signed by Santiago Sellers DO> Date Santiago Doe Signature: Date (if applicable) CC: AJAY Gonzalez; Rachel Brooks MD; Jim Burgos MD; MD Kya Hall Start: 03-25-2019 End: 03-25-2019 Radiation Oncology Visit Comments: See Note; NOTES: [facility] [address] 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 Plan was made to complete definitive chemoradiation therapy consisting of 6996 cGy to the gross disease involving the left neck, 5940 cGy to the high risk mucosal sites (entire oropharynx) and high risk lymph node sites (left levels 2-5), and 5412 cGy delivered to the low risk mucosal sites (nasopharynx, larynx, hypopharynx) bilateral high level 2, bilateral supraclavicular fossa, and right neck levels 2-5), all in 33 fractions using a simultaneous integrated boost technique. Treatment Data: Treatment Site: Head and Neck, unknown primary Current total dose/Total dose planned: 6996 cGy / 6996 cGy Fraction number: Chemotherapy: HD cisplatin concurrent on Tuesdays (cycle 1: 02/10, cycle 2: 03/02, cycle 3: 03/23) Subjective: Tolerating radiation therapy well overall Skin: moderate L>R skin erythema for focal moist desquamation. No rash Fatigue: mild Pain: -05/02, mostly with swallowing, using MMW/oxycodone Dysgeusia: 100% taste loss Hoarseness: Unchanged since 3rd week. Xerostomia: mild, using water. Mild thickening of saliva Diet: taking fluids and supplements by mouth and due to pain taking rest by PEG Weight: decreased 3 lbs since last week Rinses: Green Tea: using bid; Salt/Baking Soda: using 6/day Has not used alcohol and has not smoked during treatment, feeling well Height/Weight/BMI: Height: 5 ft 6 in Weight: 02/11: 136 lbs, 02/18: 135.8 lbs, 02/25: 136.0 lbs, 03/04: 129 lbs, 03/11: 133.1 lbs, 03/18: 129.8 lbs, 03/25: 126.6 lbs Vital Signs Temperature 98.4 F 03/25/19 10:55 Temperature Source Oral 03/25/19 10:55 Pulse Rate 85 03/25/19 10:55 Respiratory Rate 18 03/25/19 10:55 Objective: Gen: NAD ENT: moderate pharyngeal erythema L>R with confluent erythema and mucositis. No thrush identified. Large fixed, softened neck mass in left level II-III stable to improved Skin: moderate skin erythema patch of moist desquamation involving the left neck. Resp: CTAB, no w/r/r Laboratory Tests WBC 3.7 L Hgb 11.1 L Plt Count 351 Absolute Neuts (auto) 2.6 BUN 18 Creatinine 0.44 L Assessment: Tolerated treatment well overall. All treatment related imaging has been reviewed and approved. Dysgeusia: severe Odynophagia: grade 2, -8, reduced intake secondary Xerostomia/thick saliva: mild Fatigue: grade 1 Weight: Increase current intake Skin: grade 2 erythema with focal desquamation Patchy thrush Plan: Continue treatment as planned Reviewed potential toxicity as well as timing and management Skin: using Strata XRT, cautioned against increased sun exposure to treated area - patient agrees to keep area covered while outside Rinses: continue green tea rinse 2-3/d, baking soda/salt 4-6/d. Doing well with this Pain: continue MMW, oxycodone prn increased to 10 mg, chloraseptic prn Xerostomia: clear diet soda rinses and increased water, consider biotene Weight: Increase PEG feedings, continue fluids by mouth Thrush: Finish Fluconazole Rx Recommended smoking and alcohol cessation, he is doing well without evidence of withdrawl Continue follow up with [facility] and Nutrition Services, will follow up in 2 weeks, continue fluids as planned by med onc Thank you for allowing me to participate in the management and care of your patient. If I may answer any questions in the interim, please do not hesitate to contact me at any time. Santiago Sellers DO Department of Radiation Oncology [facility] 03/25/19 6769 <Electronically signed by Santiago Sellers DO> Date Santiago Doe Signature: Date (if applicable) CC: Kya Gonzalez Start: 03-23-2019 End: 03-23-2019 Oncology Visit Report Comments: See Note; NOTES: [facility] [address] [place] [address] OFFICE VISIT Date of Service: 03/23/19932 MR#: [id number] Acct: [id number] Name: MY JAMA Rep #: [id number] : 1960 From: Quincy Simpson MD Age/Sex: 58/M Location: OMD Status: Signed - Problem List (1) Head and neck cancer Status: Acute (2) Regional lymph node metastasis present Status: Acute - Date of Service Date of Service:: 03/23/19 - Chief Complaint Head and neck cancer on treatment - History of Present Illness 58-year-old male smoker and active alcoholic who presented with a painless left neck mass that has progressively increased in size over the course of the past couple of months. December 17, 2018 CT soft tissues of the neck: FINDINGS: There is a rim-enhancing centrally cystic mass distal to the angle the mandible, lateral to the hyoid cartilage, along the anterior margin of the sternocleidomastoid muscle. Wall thickness up to 4.9 mm. Process measures approximately 1.8 cm craniocaudal, 1.8 cm transverse, 2.9 cm anterior-posterior. Posteriorly and deep to the sternomastoid muscle, single mildly enlarged lymph node measuring 1.2 x 1.6 cm. A few additional shotty lymph nodes are present on the left. Normal thyroid. Normal submandibular glands and parotid glands. There is no right cervical lymphadenopathy. Pharyngeal and laryngeal soft tissues appear normal. Multilevel cervical spondylosis with disc disease most notable at C5-C6 with uncovertebral joint hypertrophy contributing to mild foraminal narrowing. Mucoperiosteal thickening and mucous retention cysts of the maxillary sinuses. Solitary opacified posterior right ethmoid sinus. Mastoid air cells and middle ear cavities clear. 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 December 17, 2018 CT chest: FINDINGS: Supraclavicular: No acute process within the [id number]. Body wall soft tissues: No acute process. Upper abdomen: No acute process. Osseous structures: No acute process. Mild scoliosis, moderate kyphosis, mild multilevel thoracic spondylosis. Mediastinum: No acute process. Cardiovascular: No acute process. Lungs: A few small scattered pulmonary nodules are present. The largest is in the right upper lobe anterior segment, series 6 image 73, 5 cm, solid features, smooth margins. Unremarkable airways. IMPRESSION: No acute thoracic process is evident. Small pulmonary nodules. The largest measures approximately 5 mm. Follow-up low-dose CT chest is recommended in 1 year for pulmonary nodule surveillance purposes. December 22, 2018 DIAGNOSIS CYTOLOGY A. 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 See comment. B. 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 ANTIBODY / CLONE RESULT Block A AE1-3 (AE1/AE3/PCK26) positive CK7 (OV-TL12/30) negative CK8 (44nbbvA44) positive, weak CK20 (KS20.8) negative TTF-1 (8G7G3/1) negative Napsin A (Rabbit Polyclonal) negative HepPar (OCh1E5) negative RCC (PN-15) negative PSAP (PASE/4LJ) negative CK5-6 (D5 AND 1684) positive P16 (E6H4) negative P40 (BC28) positive, focal January 02, 2019: Patient was evaluated by ENT : oral and oropharyngeal mucosa were normal. Flexible laryngoscopy was performed which demonstrated no evidence of lesion. Small cystic lesion of the uvula was felt to be benign. January 05, 2019 PET/CT: IMPRESSION: 1. ABNORMAL EXAMINATION INDICATIVE OF MALIGNANT-VIABLE NEOPLASM. 2. Increased glucose concentration observed in the left lateral neck fulfills quantitative criteria for viable neoplasm. 3. Asymmetric enhanced FDG distribution noted in the left pharyngeal mucosal space may be further investigated with rigorous clinical examination. 4. No other quantitatively significant hypermetabolic abnormalities are noted. There is no definitive scintigraphic evidence of distant metastatic disease. January 30, 2019: left tonsil excision and uvula excision. Pathology displayed no evidence of malignancy or high-grade squamous dysplasia. There was noted to be submucosal dilated minor salivary gland duct with oncocytic metaplasia in the uvula. In preparation for locoregional combined chemoradiation patient Patient underwent multiple dental extractions, placement of PEG tube and port. Treatment: Combined high-dose cisplatin and radiation January 2019- - Past Medical/Social History Past Medical History Cancer: Other Other Cancer History: carcinoma of unknown primary Social History Social History: No changes Smoking Status Former smoker Review of Systems Constitutional:: Reports: Weakness, Fatigue, Weight loss - Able to do ADL, Appetite change. Denies: Fever, Sweats, Chills Cardiovascular:: Reports: Dyspnea on exertion. Denies: Chest pain, Palpitations, Orthopnea, PND, Shortness of breath Respiratory: Reports: Cough, Shortness of breath upon exertion, Sputum production. Denies: Hemoptysis, Shortness of Breath, Wheezing Gastrointestinal:: Reports: Dysphagia - Painful, able to swallow only limited amounts of liquids, - - Dependent on tube feeds. Denies: Abdominal pain, Nausea, Vomiting, Diarrhea, Constipation, Hematochezia Genitourinary: Denies: Dysuria, Hematuria, 15, Flank pain Musculoskeletal:: Denies: Back pain, Myalgia, Arthralgia Skin: Reports: Skin Changes - In the neck secondary to radiation. Denies: Rash, Wounds Neurological:: Reports: Hearing loss - Unchanged. Denies: Headache, Dizziness, Visual changes, Tinnitus Psychiatric: Denies: Anxiety, Depression, Homicidal Ideations, Suicidal Ideations Vital Signs Height 5 ft 6 in Weight: 57.062 kg Weight in Pounds 125.8 lbs BMI 22.6 Pulse Ox 99 - Physical Exam General: Alert, Oriented x3, No apparent distress, - - ECOG 1-2 HEENT: Atraumatic, PERRLA, EOMI, Normocephalic Oropharynx:: Dry mucosa Neck:: Supple, Trachea midline, - - Port okay. Negative for: JVD, bilateral Cardiac:: Regular rate, Regular rhythm, Normal S1, Normal S2. Negative for: Murmur Lungs: Clear to auscultation, Diminished, Excusion symmetrical. Negative for: Rhonchi, Wheezes Abdomen:: Soft, Non-tender, Non-distended, - - PEG tube okay. Negative for: Hepatosplenomegaly Extremities:: - - Chronic Dupuytren's contractures. Negative for: Cyanosis, Edema Neurological: Neuro grossly intact, Clonus - Hard of hearing Skin:: Redness - There is some blistering and crusted exudate consistent with a second-degree type burn. Negative for: Lesions, Rash, Petechiae, Ecchymosis Psychiatric:: Appropriate affect, Euthymic Lymphatics:: Cervical lymphadenopathy. Negative for: Supraclavicular lymphadenopathy, Axillary lymphadenopathy Laboratory Data: Laboratory Tests Diagnostic Data: Diagnostic Data PET, CT Tumor Imaging 01/05/19 10:00 IMPRESSION: 1. ABNORMAL EXAMINATION INDICATIVE OF MALIGNANT-VIABLE NEOPLASM. 2. Increased glucose concentration observed in the left lateral neck fulfills quantitative criteria for viable neoplasm. 3. Asymmetric enhanced FDG distribution noted in the left pharyngeal mucosal space may be further investigated with rigorous clinical examination. 4. No other quantitatively significant hypermetabolic abnormalities are noted. There is no definitive scintigraphic evidence of distant metastatic disease. Electronic Signature Narendra Black, D.O. 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 Patient is status post tonsillectomies and uveal excision yet no primary identified. In addition he has indeterminate too small to further characterize lung nodules on chest CT. Comorbid conditions: Smoking and excessive alcohol until the time of diagnosis of malignancy. Plan: 1- Continue with primary radiation therapy + chemosensitization with high-dose cisplatin, started February 10, 2019 tolerated 2 cycles without excessive toxicities and will receive the third and final cycle this week. continue with weekly close monitoring. 2-IV fluid hydration to support limited oral and PEG tube intake daily this week then Saturday for the following 2 weeks and reassess . Impression and plan reviewed. He will be seen on a weekly basis during the combined modality phase Quincy Simpson MD Environmental Services Floor Tech, [facility] Divisions of Medical Oncology AND Hematology Department of Internal Medicine [place] [phone] This note was generated using a voice recognition system software. Although it was reviewed by the author prior to finalization, it may still contain incorrect words, spelling, and punctuation that were not noted when reviewing prior to saving. If a clinically significant typo or inaccurately typed phrase is noted, please notify the author. Medications: Prescriptions This Visit Medication Instructions Recorded Medications Added to Medication List This Visit 0.9% Normal Saline 1,000 ml Med 03/30/19 09:25 Ordered IV MOWEFR Primary Care Provider: Kya Gonzalez NP Referring Provider: 03/23/19 0938 <Electronically signed by Quincy Simpson MD> Date Quincy Manley Signature: Date (if applicable) CC: Kya Gonzalez Start: 03-18-2019 End: 03-18-2019 Radiation Oncology Visit Comments: See Note; NOTES: [facility] [address] 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 Plan was made to complete definitive chemoradiation therapy consisting of 6996 cGy to the gross disease involving the left neck, 5940 cGy to the high risk mucosal sites (entire oropharynx) and high risk lymph node sites (left levels 2-5), and 5412 cGy delivered to the low risk mucosal sites (nasopharynx, larynx, hypopharynx) bilateral high level 2, bilateral supraclavicular fossa, and right neck levels 2-5), all in 33 fractions using a simultaneous integrated boost technique. Treatment Data: Treatment Site: Head and Neck, unknown primary Current total dose/Total dose planned: 5724 cGy / 6996 cGy Fraction number: Chemotherapy: HD cisplatin concurrent on Tuesdays (cycle 1: 02/10, cycle 2: 03/02) Subjective: Tolerating radiation therapy well overall Skin: moderate L>R skin erythema for focal moist desquamation. No rash Fatigue: mild Pain: 5-6/10, mostly with swallowing, using MMW/oxycodone Dysgeusia: 60% taste loss Hoarseness: Unchanged. Xerostomia: mild, using water. Mild thickening of saliva Diet: taking fluids and supplements by mouth and due to pain taking rest by PEG Weight: Increased Rinses: Green Tea: using bid; Salt/Baking Soda: using 6/day Has not used alcohol and has not smoked during treatment, feeling well Height/Weight/BMI: Height: 5 ft 6 in Weight: 02/11: 136 lbs, 02/18: 135.8 lbs, 02/25: 136.0 lbs, 03/04: 129 lbs, 03/11: 133.1 lbs, 03/18: 129.8 lbs Vital Signs Temperature 99.3 F H 03/18/19 12:00 Temperature Source Temporal Artery 03/18/19 12:00 Pulse Rate 76 03/18/19 12:00 Respiratory Rate 16 03/18/19 12:00 Objective: Gen: NAD ENT: moderate pharyngeal erythema L>R with patchy mucositis. Likely thrush involving the bilateral upper gingiva. Large fixed, softened neck mass in left level II-III Skin: moderate skin erythema patch of moist desquamation involving the left neck. Resp: CTAB, no w/r/r Labs: Laboratory Tests WBC 3.8 L Hgb 11.4 L Plt Count 272 Absolute Neuts (auto) 2.8 BUN 16 Creatinine 0.46 L Assessment: Tolerating treatment well overall. All treatment related imaging has been reviewed and approved. Dysgeusia: moderate Odynophagia: grade 2, 7-8/10, reduced intake secondary Xerostomia/thick saliva: mild Fatigue: grade 1 Weight: Continue current intake Skin: grade 2 erythema with focal desquamation Patchy thrush Plan: Continue treatment as planned Reviewed potential toxicity as well as timing and management Skin: using Strata XRT, cautioned against increased sun exposure to treated area - patient agrees to keep area covered while outside Rinses: continue green tea rinse 2-3/d, baking soda/salt 4-6/d. Doing well with this Pain: continue MMW, oxycodone prn increased to 10 mg, add chloraseptic Xerostomia: clear diet soda rinses and increased water, consider biotene Weight: PEG feeding instructions provided by nutrition services today, continue fluids by mouth Thrush: Fluconazole Rx Recommended smoking and alcohol cessation, he is doing well without evidence of withdrawl Continue follow up with [facility] and Nutrition Services Thank you for allowing me to participate in the management and care of your patient. If I may answer any questions in the interim, please do not hesitate to contact me at any time. Santiago Sellers DO Department of Radiation Oncology [facility] 03/18/19 0621 <Electronically signed by Santiago Sellers DO> Date Santiago Sellers DO Cosigner Signature: Date (if applicable) CC: Kya Gonzalez Start: 03-16-2019 End: 03-16-2019 Oncology Visit Report Comments: See Note; NOTES: [facility] [address] [place], [place] [address] [address] OFFICE VISIT Date of Service: 03/16/19929 MR#: [id number] Acct: [id number] Name: ANAMY W Rep #: [id number] : 1960 From: Quincy Simpson MD Age/Sex: 58/M Location: ONC Status: Signed - Problem List (1) Head and neck cancer Status: Acute (2) Regional lymph node metastasis present Status: Acute - Date of Service Date of Service:: 03/16/19 - Chief Complaint Head and neck cancer on treatment - History of Present Illness 58-year-old male smoker and active alcoholic who presented with a painless left neck mass that has progressively increased in size over the course of the past couple of months. December 17, 2018 CT soft tissues of the neck: FINDINGS: There is a rim-enhancing centrally cystic mass distal to the angle the mandible, lateral to the hyoid cartilage, along the anterior margin of the sternocleidomastoid muscle. Wall thickness up to 4.9 mm. Process measures approximately 1.8 cm craniocaudal, 1.8 cm transverse, 2.9 cm anterior-posterior. Posteriorly and deep to the sternomastoid muscle, single mildly enlarged lymph node measuring 1.2 x 1.6 cm. A few additional shotty lymph nodes are present on the left. Normal thyroid. Normal submandibular glands and parotid glands. There is no right cervical lymphadenopathy. Pharyngeal and laryngeal soft tissues appear normal. Multilevel cervical spondylosis with disc disease most notable at C5-C6 with uncovertebral joint hypertrophy contributing to mild foraminal narrowing. Mucoperiosteal thickening and mucous retention cysts of the maxillary sinuses. Solitary opacified posterior right ethmoid sinus. Mastoid air cells and middle ear cavities clear. 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 December 17, 2018 CT chest: FINDINGS: Supraclavicular: No acute process within the [id number]. Body wall soft tissues: No acute process. Upper abdomen: No acute process. Osseous structures: No acute process. Mild scoliosis, moderate kyphosis, mild multilevel thoracic spondylosis. Mediastinum: No acute process. Cardiovascular: No acute process. Lungs: A few small scattered pulmonary nodules are present. The largest is in the right upper lobe anterior segment, series 6 image 73, 5 cm, solid features, smooth margins. Unremarkable airways. IMPRESSION: No acute thoracic process is evident. Small pulmonary nodules. The largest measures approximately 5 mm. Follow-up low-dose CT chest is recommended in 1 year for pulmonary nodule surveillance purposes. December 22, 2018 DIAGNOSIS CYTOLOGY A. 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 See comment. B. 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 ANTIBODY / CLONE RESULT Block A AE1-3 (AE1/AE3/PCK26) positive CK7 (OV-TL12/30) negative CK8 (21qajbP52) positive, weak CK20 (KS20.8) negative TTF-1 (8G7G3/1) negative Napsin A (Rabbit Polyclonal) negative HepPar (OCh1E5) negative RCC (PN-15) negative PSAP (PASE/4LJ) negative CK5-6 (D5 AND 1684) positive P16 (E6H4) negative P40 (BC28) positive, focal January 02, 2019: Patient was evaluated by ENT : oral and oropharyngeal mucosa were normal. Flexible laryngoscopy was performed which demonstrated no evidence of lesion. Small cystic lesion of the uvula was felt to be benign. January 05, 2019 PET/CT: IMPRESSION: 1. ABNORMAL EXAMINATION INDICATIVE OF MALIGNANT-VIABLE NEOPLASM. 2. Increased glucose concentration observed in the left lateral neck fulfills quantitative criteria for viable neoplasm. 3. Asymmetric enhanced FDG distribution noted in the left pharyngeal mucosal space may be further investigated with rigorous clinical examination. 4. No other quantitatively significant hypermetabolic abnormalities are noted. There is no definitive scintigraphic evidence of distant metastatic disease. January 30, 2019: left tonsil excision and uvula excision. Pathology displayed no evidence of malignancy or high-grade squamous dysplasia. There was noted to be submucosal dilated minor salivary gland duct with oncocytic metaplasia in the uvula. In preparation for locoregional combined chemoradiation patient Patient underwent multiple dental extractions, placement of PEG tube and port. Treatment: Combined high-dose cisplatin and radiation January 2019- - Past Medical/Social History Past Medical History Cancer: Other Other Cancer History: carcinoma of unknown primary Social History Social History: No changes Smoking Status Former smoker Review of Systems Constitutional:: Reports: Weakness, Fatigue - Able to do ADL. Denies: Fever, Sweats, Weight loss, Appetite change, Chills Cardiovascular:: Reports: Dyspnea on exertion. Denies: Chest pain, Palpitations, Orthopnea, PND, Shortness of breath Respiratory: Reports: Shortness of breath upon exertion. Denies: Cough, Hemoptysis, Shortness of Breath, Wheezing Gastrointestinal:: Reports: Dysphagia - Painful, dependent on tube feeds now. Denies: Abdominal pain, Nausea, Vomiting, Diarrhea, Constipation, Hematochezia Genitourinary: Denies: Dysuria, Hematuria, 15, Flank pain Musculoskeletal:: Denies: Back pain, Myalgia, Arthralgia Skin: Denies: Rash, Skin Changes, Wounds Neurological:: Denies: Headache, Dizziness, Visual changes, Tinnitus, Hearing loss Psychiatric: Denies: Anxiety, Depression, Homicidal Ideations, Suicidal Ideations Vital Signs Height 5 ft 6 in Weight: 60.373 kg Weight in Pounds 133.1 lbs BMI 22.6 Pulse Ox 97 - Physical Exam General: Alert, Oriented x3, No apparent distress, - - ECOG 1-2 HEENT: Atraumatic, PERRLA, EOMI, Normocephalic Oropharynx:: Dry mucosa Neck:: Supple, Trachea midline, - - Port okay, left neck skin changes consistent with first-degree radiation burn,. Negative for: JVD, bilateral Cardiac:: Regular rate, Regular rhythm, Normal S1, Normal S2. Negative for: Murmur Lungs: Clear to auscultation, Diminished, Excusion symmetrical. Negative for: Rhonchi, Wheezes Abdomen:: Soft, Non-tender, Non-distended, - - PEG tube okay. Negative for: Hepatosplenomegaly Extremities:: Negative for: Cyanosis, Edema Neurological: Neuro grossly intact Skin:: Negative for: Lesions, Rash, Petechiae, Ecchymosis Psychiatric:: Appropriate affect, Euthymic Lymphatics:: Cervical lymphadenopathy. Negative for: Supraclavicular lymphadenopathy Laboratory Data: CBC, CMP reviewed in EMR Diagnostic Data: Diagnostic Data PET, CT Tumor Imaging 01/05/19 10:00 IMPRESSION: 1. ABNORMAL EXAMINATION INDICATIVE OF MALIGNANT-VIABLE NEOPLASM. 2. Increased glucose concentration observed in the left lateral neck fulfills quantitative criteria for viable neoplasm. 3. Asymmetric enhanced FDG distribution noted in the left pharyngeal mucosal space may be further investigated with rigorous clinical examination. 4. No other quantitatively significant hypermetabolic abnormalities are noted. There is no definitive scintigraphic evidence of distant metastatic disease. Electronic Signature Narendra Weathers D.O. 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 Patient is status post tonsillectomies and uveal excision yet no primary identified. In addition he has indeterminate too small to further characterize lung nodules on chest CT. Comorbid conditions: Smoking and excessive alcohol until the time of diagnosis of malignancy. Plan: 1- Continue with primary radiation therapy + chemosensitization with high-dose cisplatin, started February 10, 2019 tolerated 2 cycles without excessive toxicities. continue with weekly close monitoring. 2-IV fluid hydration to support limited oral and PEG tube intake Saturday this week . Impression and plan reviewed. He will be seen on a weekly basis during the combined modality phase Quincy Simpson MD Environmental Services Floor [employer], [facility] Divisions of Medical Oncology AND Hematology Department of Internal Medicine [address] [address] This note was generated using a voice recognition system software. Although it was reviewed by the author prior to finalization, it may still contain incorrect words, spelling, and punctuation that were not noted when reviewing prior to saving. If a clinically significant typo or inaccurately typed phrase is noted, please notify the author. Medications: Prescriptions This Visit Medication Instructions Recorded Lidocaine/Prilocaine 1 applicatio TP DAILY PRN PRN 30 01/05/19 [Lidocaine-Prilocaine Cream] Days #1 tube Primary Care Provider: Kya Gonzalez NP Referring Provider: 03/16/19 1015 <Electronically signed by Quincy Simpson MD> Date Quincy Simpson MD Cosigner Signature: Date (if applicable) CC: Kya Gonzalez Start: 03-11-2019 End: 03-11-2019 Radiation Oncology Visit Comments: See Note; NOTES: [address] [address] OFFICE VISIT Date of Service: 03/11/19 1020 MR#: [id number] Acct: [id number] Name: MY JAMA Rep #: [id number] : 1960 From: Donaldo Gibbs MD Age/Sex: 58/M Location: [facility] Status: Signed with Addenda ADDENDUM by Donaldo Gibbs MD on 03/11/19 at 1425 03/11/2019: Please note vital signs should reflect today's date(03/11/2019). Thank you. 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 Plan was made to complete definitive chemoradiation therapy consisting of 6996 cGy to the gross disease involving the left neck, 5940 cGy to the high risk mucosal sites (entire oropharynx) and high risk lymph node sites (left levels 2-5), and 5412 cGy delivered to the low risk mucosal sites (nasopharynx, larynx, hypopharynx) bilateral high level 2, bilateral supraclavicular fossa, and right neck levels 2-5), all in 33 fractions using a simultaneous integrated boost technique. Treatment Data: Treatment Site: Head and Neck, unknown primary Current total dose/Total dose planned: 4664 cGy / 6996 cGy Fraction number: Chemotherapy: HD cisplatin concurrent on Tuesdays (cycle 1: 02/10, cycle 2: 03/02) Subjective: Tolerating radiation therapy well overall Skin: moderate L>R skin erythema. No rash or desquamation Fatigue: mild Pain: -03/02, mostly with swallowing, using MMW/oxycodone Dysgeusia: 60% taste loss Hoarseness: Unchanged. Xerostomia: mild, using water. Mild thickening of saliva Diet: taking fluids and supplements by mouth and due to pain taking rest by PEG Weight: Increased Rinses: Green Tea: using bid; Salt/Baking Soda: using 6/day Has not used alcohol and has not smoked during treatment, feeling well Height/Weight/BMI: Height: 5 ft 6 in Weight: 02/11: 136 lbs, 02/18: 135.8 lbs, 02/25: 136.0 lbs, 03/04: 129 lbs, 03/11: 133.1 lbs Vital Signs Temperature 98.9 F L 03/04/19 11:41 Temperature Source Oral 03/04/19 11:41 Pulse Rate 79 03/04/19 11:41 Respiratory Rate 16 03/04/19 11:41 Objective: Gen: NAD ENT: moderate pharyngeal erythema L>R. No thrush, well healed from surgery. Large fixed, firm neck mass in left level II-III, 4.8x4.8cm Skin: moderate skin erythema without desquamation. Resp: CTAB, no w/r/r Labs: Laboratory Tests WBC 8.4 Hgb 14.6 Plt Count 391 Absolute Neuts (auto) 4.9 BUN 8 Creatinine 0.56 L Laboratory Tests WBC 5.8 Hgb 13.5 Plt Count 334 Absolute Neuts (auto) 3.5 BUN 7 Creatinine 0.37 L Laboratory Tests WBC 5.4 Hgb 13.3 Plt Count 266 Absolute Neuts (auto) 3.9 BUN 9 Creatinine 0.65 L Laboratory Tests WBC 2.9 L Hgb 12.1 L Plt Count 213 Absolute Neuts (auto) 1.6 L BUN 9 Creatinine 0.41 L Assessment: Tolerating treatment well overall. All treatment related imaging has been reviewed and approved. Dysgeusia: moderate Odynophagia: grade 1, 5-6/10, reduced intake secondary Xerostomia/thick saliva: mild Fatigue: grade 1 Weight: Continue current intake Plan: Continue treatment as planned Reviewed potential toxicity as well as timing and management Skin: Remedy bid, cautioned against increased sun exposure to treated area - patient agrees to keep area covered while outside Rinses: continue green tea rinse 2-3/d, baking soda/salt 4-6/d. Doing well with this Pain: continue MMW, oxycodone prn, add chloraseptic Xerostomia: clear diet soda rinses and increased water, consider biotene Weight: PEG feeding instructions provided by nutrition services today, continue fluids by mouth Recommended smoking and alcohol cessation, he is doing well without evidence of withdrawl Continue follow up with [facility] and Nutrition Services Thank you for allowing me to participate in the management and care of your patient. If I may answer any questions in the interim, please do not hesitate to contact me at any time. Donaldo Gibbs MD Department of Radiation Oncology [facility] 03/11/19 2805 <Electronically signed by Donaldo Gibbs MD> Date Donaldo Gibbs MD Cosigner Signature: Date (if applicable) CC: Kya Gonzalez Start: 03-09-2019 End: 03-09-2019 Oncology Visit Report Comments: See Note; NOTES: [facility] [address] [place] [id number] OFFICE VISIT Date of Service: 03/09/19 1014 MR#: [id number] Acct: [id number] Name: MY JAMA Rep #: [id number] : 1960 From: Marce BUNN Age/Sex: 58/M Location: ONC Status: Signed Subjective - Date of Service Date of Service:: 03/09/19 - Chief Complaint Toxicity Assessment - History of Present Illness 58-year-old male smoker and active alcoholic who presented with a painless left neck mass that has progressively increased in size over the course of the past couple of months. December 17, 2018 CT soft tissues of the neck: FINDINGS: There is a rim-enhancing centrally cystic mass distal to the angle the mandible, lateral to the hyoid cartilage, along the anterior margin of the sternocleidomastoid muscle. Wall thickness up to 4.9 mm. Process measures approximately 1.8 cm craniocaudal, 1.8 cm transverse, 2.9 cm anterior-posterior. Posteriorly and deep to the sternomastoid muscle, single mildly enlarged lymph node measuring 1.2 x 1.6 cm. A few additional shotty lymph nodes are present on the left. Normal thyroid. Normal submandibular glands and parotid glands. There is no right cervical lymphadenopathy. Pharyngeal and laryngeal soft tissues appear normal. Multilevel cervical spondylosis with disc disease most notable at C5-C6 with uncovertebral joint hypertrophy contributing to mild foraminal narrowing. Mucoperiosteal thickening and mucous retention cysts of the maxillary sinuses. Solitary opacified posterior right ethmoid sinus. Mastoid air cells and middle ear cavities clear. 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 December 17, 2018 CT chest: FINDINGS: Supraclavicular: No acute process within the [id number]. Body wall soft tissues: No acute process. Upper abdomen: No acute process. Osseous structures: No acute process. Mild scoliosis, moderate kyphosis, mild multilevel thoracic spondylosis. Mediastinum: No acute process. Cardiovascular: No acute process. Lungs: A few small scattered pulmonary nodules are present. The largest is in the right upper lobe anterior segment, series 6 image 73, 5 cm, solid features, smooth margins. Unremarkable airways. IMPRESSION: No acute thoracic process is evident. Small pulmonary nodules. The largest measures approximately 5 mm. Follow-up low-dose CT chest is recommended in 1 year for pulmonary nodule surveillance purposes. December 22, 2018 DIAGNOSIS CYTOLOGY A. 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 See comment. B. 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 ANTIBODY / CLONE RESULT Block A AE1-3 (AE1/AE3/PCK26) positive CK7 (OV-TL12/30) negative CK8 (09ddbiA38) positive, weak CK20 (KS20.8) negative TTF-1 (8G7G3/1) negative Napsin A (Rabbit Polyclonal) negative HepPar (OCh1E5) negative RCC (PN-15) negative PSAP (PASE/4LJ) negative CK5-6 (D5 AND 1684) positive P16 (E6H4) negative P40 (BC28) positive, focal January 02, 2019: Patient was evaluated by ENT : oral and oropharyngeal mucosa were normal. Flexible laryngoscopy was performed which demonstrated no evidence of lesion. Small cystic lesion of the uvula was felt to be benign. January 05, 2019 PET/CT: IMPRESSION: 1. ABNORMAL EXAMINATION INDICATIVE OF MALIGNANT-VIABLE NEOPLASM. 2. Increased glucose concentration observed in the left lateral neck fulfills quantitative criteria for viable neoplasm. 3. Asymmetric enhanced FDG distribution noted in the left pharyngeal mucosal space may be further investigated with rigorous clinical examination. 4. No other quantitatively significant hypermetabolic abnormalities are noted. There is no definitive scintigraphic evidence of distant metastatic disease. January 30, 2019: left tonsil excision and uvula excision. Pathology displayed no evidence of malignancy or high-grade squamous dysplasia. There was noted to be submucosal dilated minor salivary gland duct with oncocytic metaplasia in the uvula. In preparation for locoregional combined chemoradiation patient Patient underwent multiple dental extractions, placement of PEG tube and port. Treatment: Combined high-dose cisplatin and radiation January 2019- - Interval History Patient is presenting to clinic today for a one-week follow-up and toxicity assessment. Patient received cycle 2 cisplatin on 03/02/2019. Describes fatigue on days 2-6 of this cycle, now improving. Rates throat pain 05/02, MMW not helpful. Using baking soda/salt water, green tea and biotene mouth rinses. Requires prn oxycodone 5 mg approx q8 hrs. Since Saturday, only taking sips of fluids PO, although PO fluid intake likely inadequate. Taking 7 cans of Isosource via PEG tube/daily (2 in the morning, 2 at noon, 1 in the afternoon, 2 in the evening). Specifically, denies fever/chills, headache, SOB, CP, swelling/pain of his extremities and numbness/tingling. No constipation, LBM 03/08/19. Cough productive, describes sputum as clear, sticky. Overall unchanged. Nausea mild, did not result in any episodes of emesis. Resolved after one dose of zofran. Further denies any worsening of tinnitus from baseline. - Past Medical/Social History Past Medical History Cancer: Other Other Cancer History: carcinoma of unknown primary Social History Social History: No changes Smoking Status Former smoker Review of Systems Constitutional:: Reports: Fatigue, Appetite change. Denies: Fever, Sweats, Weight loss, Chills Cardiovascular:: Denies: Chest pain, Palpitations, Dyspnea on exertion, Orthopnea, PND, Shortness of breath Respiratory: Reports: Cough. Denies: Hemoptysis, Shortness of Breath, Wheezing Gastrointestinal:: Reports: Nausea. Denies: Abdominal pain, Vomiting, Diarrhea, Constipation, Hematochezia Genitourinary: Denies: Dysuria, Hematuria, 15, Flank pain Musculoskeletal:: Denies: Back pain, Myalgia, Arthralgia Skin: Denies: Rash, Skin Changes, Wounds Neurological:: Reports: Tinnitus - see HPI. Denies: Headache, Dizziness, Numbness, Tingling, Visual changes, Hearing loss Psychiatric: Denies: Anxiety, Depression, Homicidal Ideations, Suicidal Ideations Vital Signs Height 5 ft 6 in Weight: 129 lb Weight in Pounds 129.0 lbs BMI 22.6 Pulse Ox 100 - Physical Exam General: Alert, Oriented x3, No apparent distress HEENT: Atraumatic, PERRLA, EOMI, Normocephalic, - - wears glasses Oropharynx:: Negative for: Dry mucosa, Ulcerated lesions Neck:: Supple, Trachea midline, - - Large firm neck mass in left.. Negative for: JVD, bilateral Cardiac:: Regular rate, Regular rhythm, Normal S1, Normal S2. Negative for: Murmur Lungs: Clear to auscultation, Excusion symmetrical. Negative for: Rhonchi, Wheezes Abdomen:: Bowel sounds x 4, Soft, Non-tender, Non-distended, - - PEG tube in place. Negative for: Hepatosplenomegaly Extremities:: Negative for: Cyanosis, Edema Neurological: Neuro grossly intact Skin:: - - Port right upper chest access with gripper covered with DSD. Negative for: Lesions, Rash, Petechiae, Ecchymosis Psychiatric:: Appropriate affect, Euthymic Lymphatics:: Negative for: Cervical lymphadenopathy, Supraclavicular lymphadenopathy, Axillary lymphadenopathy Laboratory Data: Laboratory Tests Diagnostic Data: Diagnostic Data PET, CT Tumor Imaging 01/05/19 10:00 IMPRESSION: 1. ABNORMAL EXAMINATION INDICATIVE OF MALIGNANT-VIABLE NEOPLASM. 2. Increased glucose concentration observed in the left lateral neck fulfills quantitative criteria for viable neoplasm. 3. Asymmetric enhanced FDG distribution noted in the left pharyngeal mucosal space may be further investigated with rigorous clinical examination. 4. No other quantitatively significant hypermetabolic abnormalities are noted. There is no definitive scintigraphic evidence of distant metastatic disease. Electronic Signature Narendra Weathers D.O. 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 Patient is status post tonsillectomies and uveal excision yet no primary identified. In addition he has indeterminate too small to further characterize lung nodules on chest CT. Comorbid conditions: Smoking and excessive alcohol until the time of diagnosis of malignancy. 1. Head and neck ca- Primary radiation therapy + chemosensitization with high-dose cisplatin, began February 10, 2019. Received cycle 2 on 03/02/2019. Overall is tolerating well without excessive toxicities. CBC reviewed shows mild anemia, leukopenia as evidenced by white blood cell count of 2.5 and platelets preserved. 2. Dehydration -Objectively weight is up 2 pounds from last week, BUN WNL although he is endorsing p.o. fluid intake amount that is likely inadequate. Recommended to support him with IV fluids twice this week. Patient agrees. 1 L normal saline today and 03/12/2019 3. Cancer related pain-controlled with oxycodone 5 mg approximately every 8-10 hours. Advised him to continue analgesia, green tea rinses, baking soda and salt water rinses. No longer able to take soft foods p.o. advised him to continue 7 cans Isosource via PEG tube. RTO in 1 week for close monitoring and on 03/23/2019 for consideration of cycle 3 Cisplatin, sooner if issues arise. Marce Maxwell APRN-FISH CLEANER, AOCNP Medications: Prescriptions This Visit Medication Instructions Recorded Lidocaine/Prilocaine 1 applicatio TP DAILY PRN PRN 30 01/05/19 [Lidocaine-Prilocaine Cream] Days #1 tube Primary Care Provider: Kya Gonzalez NP Referring Provider: - Problem List (1) Regional lymph node metastasis present Status: Acute (2) Head and neck cancer Status: Acute (3) Dehydration Status: Acute (4) Cancer related pain Status: Acute 03/09/19 1101 <Electronically signed by aMrce BUNN> Date Marce BUNN Cosigner Signature: Date (if applicable) CC: Kya Gonzalez Start: 03-04-2019 End: 03-04-2019 Radiation Oncology Visit Comments: See Note; NOTES: [facility] [address] [address] OFFICE VISIT Date of Service: 03/04/19 1453 MR#: [id number] Acct: [id number] Name: MY JAMA Rep #: [id number] : 1960 From: Santiago Sellers DO Age/Sex: 58/M Location: 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 Plan was made to complete definitive chemoradiation therapy consisting of 6996 cGy to the gross disease involving the left neck, 5940 cGy to the high risk mucosal sites (entire oropharynx) and high risk lymph node sites (left levels 2-5), and 5412 cGy delivered to the low risk mucosal sites (nasopharynx, larynx, hypopharynx) bilateral high level 2, bilateral supraclavicular fossa, and right neck levels 2-5), all in 33 fractions using a simultaneous integrated boost technique. Treatment Data: Treatment Site: Head and Neck, unknown primary Current total dose/Total dose planned: 3604 cGy / 6996 cGy Fraction number: Chemotherapy: HD cisplatin concurrent on Tuesdays (cycle 1: 02/10, cycle 2: 03/02) Subjective: Tolerating radiation therapy well overall Skin: moderate L>R skin erythema. No rash or desquamation Fatigue: mild Pain: -03/02, mostly with swallowing, using MMW but not using pain medication Dysgeusia: 60% taste loss Hoarseness: worsened this week. Xerostomia: mild, using water. Mild thickening of saliva Diet: taking fluids and supplements by mouth and due to pain taking rest by PEG Weight: Stable Rinses: Green Tea: using bid; Salt/Baking Soda: using 6/day Has not used alcohol and has not smoked during treatment, feeling well Height/Weight/BMI: Height: 5 ft 6 in Weight: 02/11: 136 lbs, 02/18: 135.8 lbs, 02/25: 136.0 lbs, 03/04: 129 lbs Vital Signs Temperature 96.8 F L 03/04/19 11:41 Temperature Source Oral 03/04/19 11:41 Pulse Rate 74 03/04/19 11:41 Respiratory Rate 16 03/04/19 11:41 Objective: Gen: NAD ENT: moderate pharyngeal erythema L>R. No thrush, well healed from surgery. Large firm neck mass in left level II-III, stable Skin: moderate skin erythema without desquamation. Resp: CTAB, no w/r/r Labs: Laboratory Tests WBC 8.4 Hgb 14.6 Plt Count 391 Absolute Neuts (auto) 4.9 BUN 8 Creatinine 0.56 L Laboratory Tests WBC 5.8 Hgb 13.5 Plt Count 334 Absolute Neuts (auto) 3.5 BUN 7 Creatinine 0.37 L Laboratory Tests WBC 5.4 Hgb 13.3 Plt Count 266 Absolute Neuts (auto) 3.9 BUN 9 Creatinine 0.65 L Laboratory Tests WBC 2.9 L Hgb 12.1 L Plt Count 213 Absolute Neuts (auto) 1.6 L BUN 9 Creatinine 0.41 L Assessment: Tolerating treatment well overall. All treatment related imaging has been reviewed and approved. Dysgeusia: moderate Odynophagia: grade 1, 5-6/10, reduced intake secondary Xerostomia/thick saliva: mild Fatigue: grade 1 Weight loss: due to pain and poor intake Plan: Continue treatment as planned Reviewed potential toxicity as well as timing and management Skin: Remedy bid, cautioned against increased sun exposure to treated area - patient agrees to keep area covered while outside Rinses: continue green tea rinse 2-3/d, baking soda/salt 4-6/d. Doing well with this Pain: continue MMW, initiate oxycodone prn Xerostomia: clear diet soda rinses and increased water, consider biotene Weight: PEG feeding instructions provided by nutrition services today, continue fluids by mouth Recommended smoking and alcohol cessation, he is doing well without evidence of withdrawl Continue follow up with [facility] and Nutrition Services Thank you for allowing me to participate in the management and care of your patient. If I may answer any questions in the interim, please do not hesitate to contact me at any time. Santiago Sellers DO, MS Environmental Services Floor Tech, Department of Radiation Oncology [facility] 03/04/19 1969 <Electronically signed by Santiago Sellers DO> Date Santiago Sellers DO Cosignallison Signature: Date (if applicable) CC: Kya Gonzalez Start: 03-02-2019 End: 03-02-2019 Oncology Visit Report Comments: See Note; NOTES: [facility] [place] [address] OFFICE VISIT Date of Service: 03/02/19919 MR#: [id number] Acct: [id number] Name: MY JAMA Rep #: [id number] : 1960 From: Quincy Simpson MD Age/Sex: 58/M Location: [facility] Status: Signed - Problem List (1) Head and neck cancer Status: Acute (2) Regional lymph node metastasis present Status: Acute - Date of Service Date of Service:: 03/02/19 - Chief Complaint Head and neck cancer on treatment - History of Present Illness 58-year-old male smoker and active alcoholic who presented with a painless left neck mass that has progressively increased in size over the course of the past couple of months. December 17, 2018 CT soft tissues of the neck: FINDINGS: There is a rim-enhancing centrally cystic mass distal to the angle the mandible, lateral to the hyoid cartilage, along the anterior margin of the sternocleidomastoid muscle. Wall thickness up to 4.9 mm. Process measures approximately 1.8 cm craniocaudal, 1.8 cm transverse, 2.9 cm anterior-posterior. Posteriorly and deep to the sternomastoid muscle, single mildly enlarged lymph node measuring 1.2 x 1.6 cm. A few additional shotty lymph nodes are present on the left. Normal thyroid. Normal submandibular glands and parotid glands. There is no right cervical lymphadenopathy. Pharyngeal and laryngeal soft tissues appear normal. Multilevel cervical spondylosis with disc disease most notable at C5-C6 with uncovertebral joint hypertrophy contributing to mild foraminal narrowing. Mucoperiosteal thickening and mucous retention cysts of the maxillary sinuses. Solitary opacified posterior right ethmoid sinus. Mastoid air cells and middle ear cavities clear. 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 December 17, 2018 CT chest: FINDINGS: Supraclavicular: No acute process within the [id number]. Body wall soft tissues: No acute process. Upper abdomen: No acute process. Osseous structures: No acute process. Mild scoliosis, moderate kyphosis, mild multilevel thoracic spondylosis. Mediastinum: No acute process. Cardiovascular: No acute process. Lungs: A few small scattered pulmonary nodules are present. The largest is in the right upper lobe anterior segment, series 6 image 73, 5 cm, solid features, smooth margins. Unremarkable airways. IMPRESSION: No acute thoracic process is evident. Small pulmonary nodules. The largest measures approximately 5 mm. Follow-up low-dose CT chest is recommended in 1 year for pulmonary nodule surveillance purposes. December 22, 2018 DIAGNOSIS CYTOLOGY A. 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 See comment. B. 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 ANTIBODY / CLONE RESULT Block A AE1-3 (AE1/AE3/PCK26) positive CK7 (OV-TL12/30) negative CK8 (56urmtI98) positive, weak CK20 (KS20.8) negative TTF-1 (8G7G3/1) negative Napsin A (Rabbit Polyclonal) negative HepPar (OCh1E5) negative RCC (PN-15) negative PSAP (PASE/4LJ) negative CK5-6 (D5 AND 1684) positive P16 (E6H4) negative P40 (BC28) positive, focal January 02, 2019: Patient was evaluated by ENT : oral and oropharyngeal mucosa were normal. Flexible laryngoscopy was performed which demonstrated no evidence of lesion. Small cystic lesion of the uvula was felt to be benign. January 05, 2019 PET/CT: IMPRESSION: 1. ABNORMAL EXAMINATION INDICATIVE OF MALIGNANT-VIABLE NEOPLASM. 2. Increased glucose concentration observed in the left lateral neck fulfills quantitative criteria for viable neoplasm. 3. Asymmetric enhanced FDG distribution noted in the left pharyngeal mucosal space may be further investigated with rigorous clinical examination. 4. No other quantitatively significant hypermetabolic abnormalities are noted. There is no definitive scintigraphic evidence of distant metastatic disease. January 30, 2019: left tonsil excision and uvula excision. Pathology displayed no evidence of malignancy or high-grade squamous dysplasia. There was noted to be submucosal dilated minor salivary gland duct with oncocytic metaplasia in the uvula. In preparation for locoregional combined chemoradiation patient Patient underwent multiple dental extractions, placement of PEG tube and port. Treatment: Combined high-dose cisplatin and radiation January 2019- - Past Medical/Social History Past Medical History Cancer: Other Other Cancer History: carcinoma of unknown primary Social History Social History: No changes Smoking Status Former smoker Review of Systems Constitutional:: Reports: Weakness - Able to do ADL independently, Fatigue, Weight loss - Few pounds, Appetite change - Loss days, - - Hoarseness. Denies: Fever, Sweats, Chills Cardiovascular:: Denies: Chest pain, Palpitations, Dyspnea on exertion, Orthopnea, PND, Shortness of breath Respiratory: Denies: Cough, Hemoptysis, Shortness of Breath, Wheezing Gastrointestinal:: Denies: Abdominal pain, Nausea, Vomiting, Diarrhea, Constipation, Hematochezia Genitourinary: Denies: Dysuria, Hematuria, 15, Flank pain Musculoskeletal:: Denies: Back pain, Myalgia, Arthralgia Skin: Denies: Rash, Skin Changes, Wounds Neurological:: Reports: Tinnitus - Predates cisplatin, Hearing loss - Chronic and unchanged. Denies: Headache, Dizziness, Visual changes Psychiatric: Denies: Anxiety, Depression, Homicidal Ideations, Suicidal Ideations Vital Signs Height 5 ft 6 in Weight: 60.419 kg Weight in Pounds 133.2 lbs BMI 22.6 Pulse Ox 100 - Physical Exam General: Alert, Oriented x3, No apparent distress, - - ECOG 1 HEENT: Atraumatic, PERRLA, EOMI, Normocephalic Oropharynx:: Dry mucosa Neck:: Supple, Lymphadenopathy, Trachea midline, - - Port okay. Negative for: JVD, bilateral Cardiac:: Regular rate, Regular rhythm, Normal S1, Normal S2. Negative for: Murmur Lungs: Clear to auscultation, Diminished, Excusion symmetrical. Negative for: Rhonchi, Wheezes Abdomen:: Soft, Non-tender, Non-distended, - - PEG tube. Negative for: Hepatosplenomegaly Extremities:: - - Dupuytren's contractures. Negative for: Cyanosis, Edema Neurological: Neuro grossly intact - Nonlateralizing, - - Wasting of small muscles of the hands, chronic Skin:: Negative for: Lesions, Rash, Petechiae, Ecchymosis Psychiatric:: Appropriate affect, Euthymic Lymphatics:: Cervical lymphadenopathy Laboratory Data: Laboratory Tests Diagnostic Data: Diagnostic Data PET, CT Tumor Imaging 01/05/19 10:00 IMPRESSION: 1. ABNORMAL EXAMINATION INDICATIVE OF MALIGNANT-VIABLE NEOPLASM. 2. Increased glucose concentration observed in the left lateral neck fulfills quantitative criteria for viable neoplasm. 3. Asymmetric enhanced FDG distribution noted in the left pharyngeal mucosal space may be further investigated with rigorous clinical examination. 4. No other quantitatively significant hypermetabolic abnormalities are noted. There is no definitive scintigraphic evidence of distant metastatic disease. Electronic Signature Narendra Weathers D.O. 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 Patient is status post tonsillectomies and uveal excision yet no primary identified. In addition he has indeterminate too small to further characterize lung nodules on chest CT. Comorbid conditions: Smoking and excessive alcohol until the time of diagnosis of malignancy. Plan: Primary radiation therapy + chemosensitization with high-dose cisplatin, started February 10, 2019 tolerated cycle 1 well without excessive toxicities. We will start cycle 2 this week and continue with weekly close monitoring . Impression and plan reviewed. He will be seen on a weekly basis during the combined modality phase Quincy Simpson MD Environmental Services Floor Tech, [facility] Divisions of Medical Oncology AND Hematology Department of Internal Medicine [place] [phone] This note was generated using a voice recognition system software. Although it was reviewed by the author prior to finalization, it may still contain incorrect words, spelling, and punctuation that were not noted when reviewing prior to saving. If a clinically significant typo or inaccurately typed phrase is noted, please notify the author. Medications: Prescriptions This Visit Medication Instructions Recorded Lidocaine/Prilocaine 1 applicatio TP DAILY PRN PRN 30 01/05/19 Primary Care Provider: Kya Gonzalez NP Referring Provider: 03/02/19 0925 <Electronically signed by Quincy Simpson MD> Date Quincy Simpson MD Cosigner Signature: Date (if applicable) CC: Kya Gonzalez Start: 02-25-2019 End: 02-25-2019 Radiation Oncology Visit Comments: See Note; NOTES: [facility] [place] [address] OFFICE VISIT Date of Service: 02/25/19 1033 MR#: [id number] Acct: [id number] Name: MY JAMA Rep #: [id number] : 1960 From: Santiago Sellers Age/Sex: 58/M Location: [facility] Status: Signed Date of Service: 02/25/19 Diagnosis: My Jama is a 58-year-old male diagnosed with 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 Plan was made to complete definitive chemoradiation therapy consisting of 6996 cGy to the gross disease involving the left neck, 5940 cGy to the high risk mucosal sites (entire oropharynx) and high risk lymph node sites (left levels 2-5), and 5412 cGy delivered to the low risk mucosal sites (nasopharynx, larynx, hypopharynx) bilateral high level 2, bilateral supraclavicular fossa, and right neck levels 2-5), all in 33 fractions using a simultaneous integrated boost technique. Treatment Data: Treatment Site: Head and Neck, unknown primary Current total dose/Total dose planned: 2544 cGy / 6996 cGy Fraction number: Chemotherapy: HD cisplatin concurrent on Tuesdays (cycle 1: 02/10) Subjective: Tolerating radiation therapy well overall Skin: no erythema, rash, or desquamation Fatigue: none Pain: 3-4/10, mostly with swallowing, not using pain medication Dysgeusia: 60% taste loss Xerostomia: mild, using water. Mild thickening of saliva Diet: normal diet PO, has PEG but not using Weight: Stable Rinses: Green Tea: using bid; Salt/Baking Soda: using 6/day Has not used alcohol and has not smoked during treatment, feeling well Height/Weight/BMI: Height: 5 ft 6 in Weight: 02/11: 136 lbs, 02/18: 135.8 lbs, 02/25: 136.0 lbs Vital Signs Temperature 97.4 F L 02/25/19 10:08 Temperature Source Oral 02/25/19 10:08 Pulse Rate 78 02/25/19 10:08 Respiratory Rate 16 02/25/19 10:08 Objective: Gen: NAD ENT: mild pharyngeal erythema L>R. No thrush, well healed from surgery, FOM small lesion appears unremarkable, will follow. Large firm neck mass in left level II-III, stable Skin: no erythema or desquamation Resp: CTAB, no w/r/r Labs: Laboratory Tests WBC 8.4 Hgb 14.6 Plt Count 391 Absolute Neuts (auto) 4.9 BUN 8 Creatinine 0.56 L Laboratory Tests WBC 5.8 Hgb 13.5 Plt Count 334 Absolute Neuts (auto) 3.5 BUN 7 Creatinine 0.37 L Laboratory Tests WBC 5.4 Hgb 13.3 Plt Count 266 Absolute Neuts (auto) 3.9 BUN 9 Creatinine 0.65 L Assessment: Tolerating treatment well overall. All treatment related imaging has been reviewed and approved. Dysgeusia: moderate Odynophagia: grade 1, 3-4/10, not limiting intake Xerostomia/thick saliva: mild Plan: Continue treatment as planned Reviewed potential toxicity as well as timing and management Skin: Remedy bid, cautioned against increased sun exposure to treated area - patient agrees to keep area covered while outside Rinses: continue green tea rinse 2-3/d, baking soda/salt 4-6/d. Doing well with this Pain: initiate MMW Xerostomia: clear diet soda rinses and increased water, consider biotene Recommended smoking and alcohol cessation, he is doing well without evidence of withdrawl Continue follow up with [facility] and Nutrition Services Thank you for allowing me to participate in the management and care of your patient. If I may answer any questions in the interim, please do not hesitate to contact me at any time. Santiago Sellers DO, MS Environmental Services Floor Tech, Department of Radiation Oncology [facility] 02/25/19 104 <Electronically signed by Santiago Sellers DO> Date Santiago Doe Signature: Date (if applicable) CC: Kya Gonzalez Start: 02-23-2019 End: 02-23-2019 Oncology Visit Report Comments: See Note; NOTES: [facility] [place] [address] OFFICE VISIT Date of Service: 02/23/19 1008 MR#: [id number] Acct: [id number] Name: MY JAMA Rep #: [id number] : 1960 From: Marce BUNN Age/Sex: 58/M Location: [facility] Status: Signed Subjective - Date of Service Date of Service:: 02/23/19 - Chief Complaint Head and neck cancer on treatment - History of Present Illness 58-year-old male smoker and active alcoholic who presented with a painless left neck mass that has progressively increased in size over the course of the past couple of months. December 17, 2018 CT soft tissues of the neck: FINDINGS: There is a rim-enhancing centrally cystic mass distal to the angle the mandible, lateral to the hyoid cartilage, along the anterior margin of the sternocleidomastoid muscle. Wall thickness up to 4.9 mm. Process measures approximately 1.8 cm craniocaudal, 1.8 cm transverse, 2.9 cm anterior-posterior. Posteriorly and deep to the sternomastoid muscle, single mildly enlarged lymph node measuring 1.2 x 1.6 cm. A few additional shotty lymph nodes are present on the left. Normal thyroid. Normal submandibular glands and parotid glands. There is no right cervical lymphadenopathy. Pharyngeal and laryngeal soft tissues appear normal. Multilevel cervical spondylosis with disc disease most notable at C5-C6 with uncovertebral joint hypertrophy contributing to mild foraminal narrowing. Mucoperiosteal thickening and mucous retention cysts of the maxillary sinuses. Solitary opacified posterior right ethmoid sinus. Mastoid air cells and middle ear cavities clear. 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 December 17, 2018 CT chest: FINDINGS: Supraclavicular: No acute process within the [id number]. Body wall soft tissues: No acute process. Upper abdomen: No acute process. Osseous structures: No acute process. Mild scoliosis, moderate kyphosis, mild multilevel thoracic spondylosis. Mediastinum: No acute process. Cardiovascular: No acute process. Lungs: A few small scattered pulmonary nodules are present. The largest is in the right upper lobe anterior segment, series 6 image 73, 5 cm, solid features, smooth margins. Unremarkable airways. IMPRESSION: No acute thoracic process is evident. Small pulmonary nodules. The largest measures approximately 5 mm. Follow-up low-dose CT chest is recommended in 1 year for pulmonary nodule surveillance purposes. December 22, 2018 DIAGNOSIS CYTOLOGY A. 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 See comment. B. 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 ANTIBODY / CLONE RESULT Block A AE1-3 (AE1/AE3/PCK26) positive CK7 (OV-TL12/30) negative CK8 (63xfewX38) positive, weak CK20 (KS20.8) negative TTF-1 (8G7G3/1) negative Napsin A (Rabbit Polyclonal) negative HepPar (OCh1E5) negative RCC (PN-15) negative PSAP (PASE/4LJ) negative CK5-6 (D5 AND 1684) positive P16 (E6H4) negative P40 (BC28) positive, focal January 02, 2019: Patient was evaluated by ENT : oral and oropharyngeal mucosa were normal. Flexible laryngoscopy was performed which demonstrated no evidence of lesion. Small cystic lesion of the uvula was felt to be benign. January 05, 2019 PET/CT: IMPRESSION: 1. ABNORMAL EXAMINATION INDICATIVE OF MALIGNANT-VIABLE NEOPLASM. 2. Increased glucose concentration observed in the left lateral neck fulfills quantitative criteria for viable neoplasm. 3. Asymmetric enhanced FDG distribution noted in the left pharyngeal mucosal space may be further investigated with rigorous clinical examination. 4. No other quantitatively significant hypermetabolic abnormalities are noted. There is no definitive scintigraphic evidence of distant metastatic disease. January 30, 2019: left tonsil excision and uvula excision. Pathology displayed no evidence of malignancy or high-grade squamous dysplasia. There was noted to be submucosal dilated minor salivary gland duct with oncocytic metaplasia in the uvula. In preparation for locoregional combined chemoradiation patient Patient underwent multiple dental extractions, placement of PEG tube and port. Treatment: Concomitant chemoradiation with high dose Cisplatin: 02/10/19- - Interval History The patient is presenting to clinic for weekly follow up. He received Cisplatin on 02/10/19. He denies any concerns r/t today's visit. States he is using green tea and baking soda salt rinses as advised. Experiencing intermittent mild dysphagia. Taking soft foods and PO fluids, taking 2-3 Ensures daily. Estimates PO fluid intake as 2 L/day. Not yet using PEG tube, although flushes daily. Denies dizziness, weakness. + bilat tinnitus however experienced at baseline and denies any worsening of sx. - Past Medical/Social History Past Medical History Cancer: Other Other Cancer History: carcinoma of unknown primary Social History Social History: No changes Smoking Status Former smoker Review of Systems Constitutional:: Reports: Fatigue - minimal. Denies: Fever, Sweats, Weight loss, Appetite change, Chills Cardiovascular:: Denies: Chest pain, Palpitations, Dyspnea on exertion, Orthopnea, PND, Shortness of breath Respiratory: Reports: Cough. Denies: Hemoptysis, Shortness of Breath, Wheezing Gastrointestinal:: Denies: Abdominal pain, Nausea - not required any prn antiemetics, Vomiting, Diarrhea, Constipation, Melena, Hematochezia Genitourinary: Denies: Dysuria, Hematuria, 15, Flank pain Musculoskeletal:: Denies: Back pain, Myalgia, Arthralgia Skin: Denies: Rash, Skin Changes, Wounds Neurological:: Reports: Tinnitus - see HPI. Denies: Headache, Dizziness, Numbness, Tingling, Visual changes, Hearing loss Psychiatric: Denies: Anxiety, Depression, Homicidal Ideations, Suicidal Ideations Vital Signs Height 5 ft 6 in - Physical Exam General: Alert, Oriented x3, No apparent distress HEENT: Atraumatic, PERRLA, EOMI, Normocephalic, - - wears glasses Oropharynx:: Negative for: Dry mucosa, Ulcerated lesions Neck:: Supple, Trachea midline, - - Bulky left neck lymph node mass, Axillary lymphadenopathy. Negative for: JVD, bilateral Cardiac:: Regular rate, Regular rhythm, Normal S1, Normal S2. Negative for: Murmur Lungs: Clear to auscultation, Excusion symmetrical. Negative for: Rhonchi, Wheezes, Tachypneic, Increased respiratory effort Abdomen:: Bowel sounds x 4, Soft, Non-tender, Non-distended, - - PEG tube in place. Negative for: Hepatosplenomegaly Extremities:: Negative for: Cyanosis, Edema Neurological: Neuro grossly intact Skin:: - - Port right upper chest accessed with gripper covered with DSD. Negative for: Lesions, Rash, Petechiae, Ecchymosis Psychiatric:: Appropriate affect, Euthymic Lymphatics:: Negative for: Cervical lymphadenopathy, Supraclavicular lymphadenopathy, Axillary lymphadenopathy Laboratory Data: Laboratory Tests WBC 5.4 (4.4-11.0) K/mm3 Diagnostic Data: Diagnostic Data PET, CT Tumor Imaging 01/05/19 10:00 IMPRESSION: 1. ABNORMAL EXAMINATION INDICATIVE OF MALIGNANT-VIABLE NEOPLASM. 2. Increased glucose concentration observed in the left lateral neck fulfills quantitative criteria for viable neoplasm. 3. Asymmetric enhanced FDG distribution noted in the left pharyngeal mucosal space may be further investigated with rigorous clinical examination. 4. No other quantitatively significant hypermetabolic abnormalities are noted. There is no definitive scintigraphic evidence of distant metastatic disease. Electronic Signature Narendra Weathers D.O. 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 Patient is status post tonsillectomies and uveal excision yet no primary identified. In addition he has indeterminate too small to further characterize lung nodules on chest CT. Comorbid conditions: Smoking and excessive alcohol until the time of diagnosis of malignancy. Plan: Primary radiation therapy + chemosensitization with high-dose cisplatin, began February 10, 2019. Overall is tolerating well without excessive toxicities. CBC reviewed and values are WNL. Objectively weight is stable, BUN WNL and he taking 2 L fluids PO daily. RTO in 1 week for consideration of cycle 2 Cisplatin, sooner if issues arise. Marce Maxwell, UNDERGROUND REPAIRER-FISH CLEANER, AOCNP Medications: Prescriptions This Visit Medication Instructions Recorded Primary Care Provider: Kya Gonzalez NP Referring Provider: - Problem List (1) Regional lymph node metastasis present Status: Acute (2) Head and neck cancer Status: Acute 02/23/19 1101 <Electronically signed by Marce HOODC> Date Marce BUNN Cosigner Signature: Date (if applicable) CC: Kya Gonzalez Start: 02-19-2019 End: 02-19-2019 SP Initial Evaluation Comments: See Note; NOTES: [facility] [address] [place] [address]. [address] [place] [id number] / REHABILITATION SERVICES INITIAL EVALUATION MR#: [id number] Acct: [id number] Name: MY JAMA Rep #: [id number] : 1960 58 From: Diomedes Bentley M.A., [facility]-ADVANCED PRACTICE REGISTERED NURSE Referring DrBianca: Santiago Sellers DO Status: REG RCR Insurance: [id number] Eval Date: SELF PAY INSURANCE REASON FOR REFERRAL: The Patient is a 58 year old male referred for a clinical assessment of the swallow function at [facility] on 02/13/2019 secondary to recently diagnosed clinical stage NOREEN (cT1 cN2b M0) p16 negative squamous cell carcinoma likely originating within the left tonsillar region with left neck adenopathy currently undergoing irradiation (02/10/2019; left cervical; planned 33 fractions) with concurrent chemotherapy (Cisplatin every Saturday) status post left radical tonsillectomy and uveal excision (01/30/2019). The Patient reports initial odynophagia in April of 2018 followed by left sided cervical lump development in November of 2018 which gradually developed in size. The Patient denies any coughing or throat clearing during PO intake, denies sensation of nasopharyngeal reflux during ingestion, and denies odynophagia (reports odynophagia prior to left tonsillectomy, though this has resolved). He denies any significant weight loss (stable; 140 136 lbs), with a percutaneous endoscopic gastrostomy (PEG) tube prophylactically placed on 01/30/2019, along with multiple dental extractions and left radical tonsillectomy. He denies any appetite reduction or early satiety, denies any nausea or emesis. He denies any symptoms of trismus. He reports no xerostomia or diurnal sialorrhea, and denies any dysgeusia / hypogeusia / ageusia or hyposmia. He denies any persistent globus sensation or issues with reflux. He denies suboptimal intake behaviors (tachyphagia, bolus bolting, or aerophagia). He denies any current or previous issues with aspiration related pulmonary complications, to include pneumonia, bronchitis, or unexplained asthma symptoms. The Patient appears relatively cognitively intact with affect appearing appropriate; no apparent or reported cognitive communication issues appearing throughout gathering of case history; denies any vocal changes. The Patient is fully ambulatory, no difficulties with posture maintenance, though does appear somewhat slightly undernourished; he is independent for all ADLs and IADLs, completing all activities of daily living without difficulty. He is not actively working, with no immediate plans to return to the vocational setting reported. He reports he is actively attempting to stop all smoking and drinking, and has abstained from alcohol for the past two days. 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 PREVIOUS MODIFIED BARIUM SWALLOW STUDY: None. ADDITIONAL OBJECTIVE ASSESSMENT RESULTS: 04/28/2018 EGD due to odynophagia demonstrated significant esophagitis in the distal esophagus measuring 1-2 cm in length 12/18/[address] revealed no acute thoracic process; small pulmonary nodules, largest measures approximately 5 mm. 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 01/07/2019 PET scan revealed increased glucose concentration observed in the left lateral neck fulfills quantitative criteria for viable neoplasm; asymmetric enhanced FDG distribution noted in the left pharyngeal mucosal space 01/26/2019 CXR revealed clear lungs; right chest wall Mediport. ORAL MOTOR / MODIFIED CRANIAL NERVE ASSESSMENT: CNV, VII, IX, X, and XII appear grossly intact. Hyperactive gag reflex elicited. Natural lower dentition with recent bilateral lower molar (#[id number] and #[id number]) and entire upper dental extractions; no obvious signs of alveolar osteitis (dry socket); mild gingival recession along the remaining dentition; denies odontalgia. Status post tonsillectomy and uveal excision with remaining scar tissue visualized in the posterior oropharynx. Whitish coating on the lingual blade that may be suggestive of oral candidiasis vs. effects of xerostomia. Questionable lesion / growth located in the left sublingual tissue. Very small white spots along the bilateral buccal mucosa (no more than 4-5 total). Appropriate volitional cough intensity. No signs or symptoms of trismus. SUPPLEMENTARY DYSPHAGIA ASSESSMENT RESULTS: Malnutrition Screening Tool (MST): 0 (not at risk) Reflux Symptom Index (RSI): 0 (>13 may be indicative of significant reflux) Oral Mucositis Grading Scale: Grade I (mild asymptomatic or mild symptoms) Scale of Subjective Total Taste Acuity (STTA): Grade 0 (same taste acuity as before) Radiation Therapy Oncology Group Radiation Morbidity Scoring Criteria for Xerostomia: Acute Reactions: Grade 0 (no change attendant baseline) [facility] Xerostomia Questionnaire: Sialorrhea Scoring Scale (SSS): 1/9 (dry, never drools) MD Feng Dysphagia Inventory (MDADI): Global: 4/5 Physical: 34/40 Emotional: 25/30 Functional: 23/25 Composite score: 82 Mean Point Score: 4.31 Final Score: 86.31/100 Performance Status Scale for Head AND Neck Cancer Patients (PSS-HN): 300/300 Normalcy of Diet: 100 full diet (no restrictions) Public Eatin no restriction of place, food, or company Understandability of Speech: 100 always understandable Total Dysphagia Risk Score (TDRS): 21 - High risk (TDRS > 18) CLINICAL ASSESSMENT OF SWALLOW FUNCTION (QUANTITATIVE): Repetitive Saliva Swallowing Test (RSST): Pass; > 2 dry swallows within 30 seconds. Modified Water Swallowing Test (MWST): Normal 5 (of 5) 1oz (30mL) Water Swallowing Test (1oz WST): Normal 1 (of 5) 3oz (90mL) Water Swallow Test (3oz WST): Normal Food Test: Normal 5 (of 5) Keenan Assessment of Swallowing Ability Cancer (MASA-C): 187 (mild) MASA-C Dysphagia Risk Rating: Possible; lowered probability of disorder, Swallowing Performance Scale (PSP): 3 (mild) CLINICAL ASSESSMENT OF SWALLOW FUNCTION (QUALITATIVE): ORAL PREPARATORY PHASE: mild (albeit effective) mastication inefficiency with slightly prolonged mastication secondary to recent dental extractions pending dental prosthetic completion; sufficient anterior oral containment; preserved management of breathing / bolus formation without disrupted E S E pattern. ORAL TRANSITIONAL PHASE: no signs of transitional incompetence; no signs of bolus consolidation impairments; no signs or symptoms of premature posterior bolus loss. PHARYNGEAL PHASE: appropriate hyolaryngeal excursion upon digital palpation; intermittent audible swallow possibly suggestive of pharyngeal swallow delay / dyssynchrony; no subjective signs of pharyngeal dysmotility; no subjective signs of velopharyngeal impairments; no signs or symptoms of penetration / aspiration throughout trials. ESOPHAGEAL PHASE: esophageal phase appears unremarkable FUNCTIONAL STATUS ASSESSMENT RESULTS: Functional Assessment of Cancer Therapy Head AND Neck (FACT H AND N): 73 Physical Well-Bein Social / Family Well- Bein Emotional Well-Bein Functional Well-Bein Additional Concerns: 18 Karnofsky Performance Scale Index: 90 (able to carry on normal activity; minor impact) Ndiaye Index of [place] in Activities of Daily Livin/6 (independent) Bathin Dressin Toiletin Transferrin Continence: 1 Feedin Amadeo Marshall Instrumental Activities of Daily Living Scale (IADL): 8/8 (high functioning) A. Ability to Use Telephone: 1 B. Shoppin C. Food Preparation: 1 D. Housekeepin E. Laundry: 1 F. Mode of Transportation: 1 G. Responsibility for Own Medications: 1 H. 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 RECOMMENDATIONS: Cannot definitively rule out silent aspiration at bedside; will recommend further assessment of the oropharyngeal swallow function via objective means (modified barium swallow study) due to the anatomical / structural abnormalities and likely physiological impacts on the swallow structures. The patient is at HIGH risk for continual changes and possible decline in both swallow functioning / dysphagia severity and cognitive communication functioning throughout the chemoradiation intervention cycle; would benefit from continued monitoring across all domains. Provided Patient education regarding the importance of oral care throughout the irradiation process and post-irradiation, with recommendations for an aggressive oral care program that includes pre-rinse use prior to water intake; routine oral care in the a.m., prior to oral intake, after oral intake, and prior to bed via toothbrush / swab / rinse; with frequent dental checkups post-irradiation. The Patient requires intensive skilled speech-language intervention 1-2x per week throughout the irradiation process and post irradiation targeting diet texture management and training / implementation of recommended compensatory strategies; training and implementation of a home based prophylactic swallowing exercise program to promote the highest level of preserved post-irradiation swallow functioning; training and implementation of a home oral care protocol to reduce the effects of xerostomia and improve / maintain the integrity of the oral mucosa reducing the risk of aspiration related pulmonary complications; Patient / caregiver education regarding candace and post-irradiation dysphagia and associated symptomology; and considerations for continual assessment of the cognitive communication profile as medically appropriate throughout the chemoradiation cycle to ensure achievement of the highest level of safe, independent functioning; with goal adjustment pending MBS completion. DIET TEXTURE RECOMMENDATIONS: Will recommend a regular textured (IDDSI: 7), thin liquid diet (IDDSI: 0) diet RECOMMENDED COMPENSATORY STRATEGIES: Seated upright at 90 degrees during PO intake, remain upright for 30-60 minutes post meal (GERD / PEG precaution), alternative supplementation via PEG as needed. FUNCTIONAL OUTCOMES: OUTCOME 1: the Patient will tolerate the least restrictive means of nutrition to facilitate adequate hydration / nutrition with optimum safety and efficiency of swallowing function during P.O. intake without overt signs and symptoms of aspiration. OUTCOME 2: the Patient will demonstrate and utilize recommended compensatory swallowing techniques to facilitate improved airway protection and decreased risk for aspiration during PO intake. OUTCOME 3: the Patient will demonstrate and utilize recommended oropharyngeal range of motion exercise within the Patients clinical and home based program to improve and maintain overall oropharyngeal functioning and reducing the effects of post-irradiation dysphagia, with minimal cueing and prompting provide by the clinician, across 2 out of 3 sessions. OUTCOME 4: the Patient will participate in a home based oral care program established during intervention sessions to facilitate improved and maintained integrity of the oral mucosa throughout the irradiation process with complete independence. OUTCOME 5: the Patient will participate in a Modified Barium Swallow (MBS) study to objectively assess the Patient s oropharyngeal swallowing function, to determine the least restrictive means of nutrition, to objectively assess the effectiveness of previously identified strategies / precautions, and to identify appropriate intervention approaches / strategies to implement during treatment sessions. OUTCOME 6: the Patient will participate in continual assessment of the cognitive communication profile throughout the chemoradiation cycle to facilitate comprehensive objective date in regards to changes in baseline level of cognitive functioning at the supervised level OUTCOME 7: goal adjustment as needed post MBS Diomedes Bentley M.A., CCC-ADVANCED PRACTICE REGISTERED NURSE MBSImP Certified, LSVT Certified [facility] Department [email or web address] <Electronically signed by Diomedes Bentley M.A., CFY-ADVANCED PRACTICE REGISTERED NURSE> 02/19/19 1829 CC: [facility] Signed For Medicare only, by signing this I certify the plan of care. 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 Plan was made to complete definitive chemoradiation therapy consisting of 6996 cGy to the gross disease involving the left neck, 5940 cGy to the high risk mucosal sites (entire oropharynx) and high risk lymph node sites (left levels 2-5), and 5412 cGy delivered to the low risk mucosal sites (nasopharynx, larynx, hypopharynx) bilateral high level 2, bilateral supraclavicular fossa, and right neck levels 2-5), all in 33 fractions using a simultaneous integrated boost technique. Treatment Data: Treatment Site: Head and Neck, unknown primary Current total dose/Total dose planned: 1484 cGy / 6996 cGy Fraction number: Chemotherapy: HD cisplatin concurrent on Tuesdays (cycle 1: 02/10) Subjective: Tolerating radiation therapy well overall Skin: no erythema, rash, or desquamation Fatigue: none Pain: 1-2/10, uses ibuprofen Dysgeusia: moderate Xerostomia: none Diet: normal diet PO, has PEG but not using Weight: Stable Rinses: Green Tea: using bid; Salt/Baking Soda: using 6/day Has not used alcohol and has not smoked during treatment, feeling well Height/Weight/BMI: Height: 5 ft 6 in Weight: 02/11: 136 lbs, 02/18: 135.8 lbs Vital Signs Temperature 98.3 F 02/18/19 10:47 Temperature Source Oral 02/18/19 10:47 Pulse Rate 76 02/18/19 10:47 Respiratory Rate 16 02/18/19 10:47 Objective: Gen: NAD ENT: no mucositis or thrush, well healed from surgery, FOM small lesion appears unremarkable, will follow Skin: no erythema or desquamation Resp: CTAB, no w/r/r Labs: Laboratory Tests WBC 8.4 Hgb 14.6 Plt Count 391 Absolute Neuts (auto) 4.9 BUN 8 Creatinine 0.56 L Laboratory Tests WBC 5.8 Hgb 13.5 Plt Count 334 Absolute Neuts (auto) 3.5 BUN 7 Creatinine 0.37 L Assessment: Tolerating treatment well overall. All treatment related imaging has been reviewed and approved. Dysgeusia: moderate Plan: Continue treatment as planned Reviewed potential toxicity as well as timing and management Skin: Remedy bid, cautioned against increased sun exposure to treated area - patient agrees to keep area covered while outside Rinses: continue green tea rinse 2-3/d, baking soda/salt 4-6/d. Doing well with this Recommended smoking and alcohol cessation, he is doing well without evidence of withdrawl Continue follow up with ADVANCED PRACTICE REGISTERED NURSE and Nutrition Services Thank you for allowing me to participate in the management and care of your patient. If I may answer any questions in the interim, please do not hesitate to contact me at any time. Santiago Sellers DO, MS Environmental Services Floor Tech, Department of Radiation Oncology [facility] 02/18/19 1100 <Electronically signed by Santiago Sellers DO> Date Santiago Sellers DO Cosigner Signature: Date (if applicable) CC: Kya Josefameganchioma Start: 02-17-2019 End: 02-17-2019 Oncology Visit Report Comments: See Note; NOTES: [facility] [place] [address] OFFICE VISIT Date of Service: 02/17/19 1212 MR#: [id number] Acct: [id number] Name: MY JAMA Rep #: [id number] : 1960 From: Quincy Simpson MD Age/Sex: 58/M Location: [facility] Status: Signed - Problem List (1) Head and neck cancer Status: Acute (2) Regional lymph node metastasis present Status: Acute - Date of Service Date of Service:: 02/17/19 - Chief Complaint Head and neck cancer on treatment - History of Present Illness 58-year-old male smoker and active alcoholic who presented with a painless left neck mass that has progressively increased in size over the course of the past couple of months. December 17, 2018 CT soft tissues of the neck: FINDINGS: There is a rim-enhancing centrally cystic mass distal to the angle the mandible, lateral to the hyoid cartilage, along the anterior margin of the sternocleidomastoid muscle. Wall thickness up to 4.9 mm. Process measures approximately 1.8 cm craniocaudal, 1.8 cm transverse, 2.9 cm anterior-posterior. Posteriorly and deep to the sternomastoid muscle, single mildly enlarged lymph node measuring 1.2 x 1.6 cm. A few additional shotty lymph nodes are present on the left. Normal thyroid. Normal submandibular glands and parotid glands. There is no right cervical lymphadenopathy. Pharyngeal and laryngeal soft tissues appear normal. Multilevel cervical spondylosis with disc disease most notable at C5-C6 with uncovertebral joint hypertrophy contributing to mild foraminal narrowing. Mucoperiosteal thickening and mucous retention cysts of the maxillary sinuses. Solitary opacified posterior right ethmoid sinus. Mastoid air cells and middle ear cavities clear. 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 December 17, 2018 CT chest: FINDINGS: Supraclavicular: No acute process within the [id number]. Body wall soft tissues: No acute process. Upper abdomen: No acute process. Osseous structures: No acute process. Mild scoliosis, moderate kyphosis, mild multilevel thoracic spondylosis. Mediastinum: No acute process. Cardiovascular: No acute process. Lungs: A few small scattered pulmonary nodules are present. The largest is in the right upper lobe anterior segment, series 6 image 73, 5 cm, solid features, smooth margins. Unremarkable airways. IMPRESSION: No acute thoracic process is evident. Small pulmonary nodules. The largest measures approximately 5 mm. Follow-up low-dose CT chest is recommended in 1 year for pulmonary nodule surveillance purposes. December 22, 2018 DIAGNOSIS CYTOLOGY A. 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 See comment. B. 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 ANTIBODY / CLONE RESULT Block A AE1-3 (AE1/AE3/PCK26) positive CK7 (OV-TL12/30) negative CK8 (27tiqcS64) positive, weak CK20 (KS20.8) negative TTF-1 (8G7G3/1) negative Napsin A (Rabbit Polyclonal) negative HepPar (OCh1E5) negative RCC (PN-15) negative PSAP (PASE/4LJ) negative CK5-6 (D5 AND 1684) positive P16 (E6H4) negative P40 (BC28) positive, focal January 02, 2019: Patient was evaluated by ENT : oral and oropharyngeal mucosa were normal. Flexible laryngoscopy was performed which demonstrated no evidence of lesion. Small cystic lesion of the uvula was felt to be benign. January 05, 2019 PET/CT: IMPRESSION: 1. ABNORMAL EXAMINATION INDICATIVE OF MALIGNANT-VIABLE NEOPLASM. 2. Increased glucose concentration observed in the left lateral neck fulfills quantitative criteria for viable neoplasm. 3. Asymmetric enhanced FDG distribution noted in the left pharyngeal mucosal space may be further investigated with rigorous clinical examination. 4. No other quantitatively significant hypermetabolic abnormalities are noted. There is no definitive scintigraphic evidence of distant metastatic disease. January 30, 2019: left tonsil excision and uvula excision. Pathology displayed no evidence of malignancy or high-grade squamous dysplasia. There was noted to be submucosal dilated minor salivary gland duct with oncocytic metaplasia in the uvula. In preparation for locoregional combined chemoradiation patient Patient underwent multiple dental extractions, placement of PEG tube and port. - Past Medical/Social History Past Medical History Cancer: Other Other Cancer History: carcinoma of unknown primary Social History Social History: No changes Smoking Status Current every day smoker Review of Systems Constitutional:: Reports: - - Able to do ADL independently. Denies: Fever, Sweats, Weight loss, Appetite change, Chills Cardiovascular:: Reports: Dyspnea on exertion. Denies: Chest pain, Palpitations, Orthopnea, PND, Shortness of breath Respiratory: Reports: Shortness of breath upon exertion. Denies: Cough, Hemoptysis, Shortness of Breath, Wheezing Gastrointestinal:: Denies: Abdominal pain, Nausea, Vomiting, Diarrhea, Constipation, Hematochezia Genitourinary: Denies: Dysuria, Hematuria, 15, Flank pain Musculoskeletal:: Denies: Back pain, Myalgia, Arthralgia Skin: Denies: Rash, Skin Changes, Wounds Neurological:: Reports: Hearing loss - Unchanged, predates treatment. Denies: Headache, Dizziness, Visual changes, Tinnitus Psychiatric: Denies: Anxiety, Depression, Homicidal Ideations, Suicidal Ideations Vital Signs Height 5 ft 6 in Weight: 61.689 kg Weight in Pounds 136.0 lbs BMI 22.6 Pulse Ox 99 - Physical Exam General: Alert, Oriented x3, No apparent distress, - - ECOG 1 HEENT: Atraumatic, PERRLA, EOMI, Normocephalic Oropharynx:: Dry mucosa Neck:: Supple, Trachea midline, - - Port okay. Negative for: JVD, bilateral Cardiac:: Regular rate, Regular rhythm, Normal S1, Normal S2. Negative for: Murmur Lungs: Clear to auscultation, Diminished, Excusion symmetrical. Negative for: Rhonchi, Wheezes Abdomen:: Soft, Non-tender, Non-distended, - - PEG tube okay. Negative for: Hepatosplenomegaly Extremities:: Negative for: Cyanosis, Edema Neurological: Neuro grossly intact Skin:: Negative for: Lesions, Rash, Petechiae, Ecchymosis Psychiatric:: Appropriate affect, Euthymic Lymphatics:: Cervical lymphadenopathy - Bulky left neck lymph node mass, Axillary lymphadenopathy. Negative for: Supraclavicular lymphadenopathy Laboratory Data: Laboratory Tests Diagnostic Data: Diagnostic Data PET, CT Tumor Imaging 01/05/19 10:00 IMPRESSION: 1. ABNORMAL EXAMINATION INDICATIVE OF MALIGNANT-VIABLE NEOPLASM. 2. Increased glucose concentration observed in the left lateral neck fulfills quantitative criteria for viable neoplasm. 3. Asymmetric enhanced FDG distribution noted in the left pharyngeal mucosal space may be further investigated with rigorous clinical examination. 4. No other quantitatively significant hypermetabolic abnormalities are noted. There is no definitive scintigraphic evidence of distant metastatic disease. Electronic Signature Narendra Weathers D.O. 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 Patient is status post tonsillectomies and uveal excision yet no primary identified. In addition he has indeterminate too small to further characterize lung nodules on chest CT. Comorbid conditions: Smoking and excessive alcohol until the time of diagnosis of malignancy. Plan: Primary radiation therapy + chemosensitization with high-dose cisplatin, started February 10, 2019 tolerated cycle 1 well without excessive toxicities. Patient was seen with his family. . Impression and plan reviewed. He will be seen on a weekly basis during the combined modality phase Quincy Simpson MD Environmental Services Floor Tech, [facility] Divisions of Medical Oncology AND Hematology Department of Internal Medicine [place] [phone] This note was generated using a voice recognition system software. It may contain incorrect words, spelling, and punctuation that were not noted when reviewing the office note prior to saving. Medications: Prescriptions This Visit Medication Instructions Recorded Primary Care Provider: Kya Gonzalez NP Referring Provider: 02/17/19 1226 <Electronically signed by Quincy Simpson MD> Date Quincy Simpson MD Cosigner Signature: Date (if applicable) CC: Kya Gonzalez Start: 02-11-2019 End: 02-11-2019 Radiation Oncology Visit Comments: See Note; NOTES: [place] [address] OFFICE VISIT Date of Service: 02/11/19 0938 MR#: [id number] Acct: [id number] Name: MY JAMA Rep #: [id number] : 1960 From: Santiago Sellers DO Age/Sex: 58/M Location: OMD Status: Signed Date of Service: 02/11/19 Diagnosis: My Jama is a 58-year-old male diagnosed with 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 Plan was made to complete definitive chemoradiation therapy consisting of 6996 cGy to the gross disease involving the left neck, 5940 cGy to the high risk mucosal sites (entire oropharynx) and high risk lymph node sites (left levels 2-5), and 5412 cGy delivered to the low risk mucosal sites (nasopharynx, larynx, hypopharynx) bilateral high level 2, bilateral supraclavicular fossa, and right neck levels 2-5), all in 33 fractions using a simultaneous integrated boost technique. Treatment Data: Treatment Site: Head and Neck, unknown primary Current total dose/Total dose planned: 424 cGy / 6996 cGy Fraction number: Chemotherapy: HD cisplatin concurrent on Tuesdays (cycle 1: 02/10) Subjective: Tolerating radiation therapy well overall Skin: no erythema, rash, or desquamation Fatigue: none Pain: 1-2/10, uses ibuprofen Dysgeusia: none Xerostomia: none Diet: normal diet PO, has PEG but not using Weight: Stable Rinses: Green Tea: not using; Salt/Baking Soda: not using Has not used alcohol in 3 days and has not smoked in 2 days, feeling well Height/Weight/BMI: Height: 5 ft 6 in Weight: 136 lbs Vital Signs Temperature 99 F 02/11/19 10:26 Temperature Source Oral 02/11/19 10:26 Pulse Rate 80 02/11/19 10:26 Respiratory Rate 16 02/11/19 10:26 Objective: Gen: NAD ENT: no mucositis or thrush, well healed from surgery Skin: no erythema or desquamation Resp: CTAB, no w/r/r Labs: Laboratory Tests WBC 8.4 Hgb 14.6 Plt Count 391 Absolute Neuts (auto) 4.9 BUN 8 Creatinine 0.56 L Assessment: Tolerating treatment well overall. All treatment related imaging has been reviewed and approved. No radiation related toxicity at this time Plan: Continue treatment as planned Reviewed potential toxicity as well as timing and management Skin: Remedy bid, cautioned against increased sun exposure to treated area - patient agrees to keep area covered while outside Rinses: recommended green tea rinse 2-3/d, baking soda/salt 4-6/d Recommended smoking and alcohol cessation, he is doing well without evidence of withdrawl Continue follow up with [facility] and Nutrition Services Thank you for allowing me to participate in the management and care of your patient. If I may answer any questions in the interim, please do not hesitate to contact me at any time. Santiago Sellers DO, MS Environmental Services Floor Tech, Department of Radiation Oncology [facility] 02/11/19 1110 <Electronically signed by Santiago Sellers DO> Date Santiago Sellers DO Cosigner Signature: Date (if applicable) CC: Kya Gonzalez Start: 02-10-2019 End: 02-10-2019 Oncology Visit Report Comments: See Note; NOTES: [facility] [address] [place] [address] OFFICE VISIT Date of Service: 02/10/19 0957 MR#: [id number] Acct: [id number] Name: MY JAMA Rep #: [id number] : 1960 From: Quincy Simpson MD Age/Sex: 58/M Location: ONC Status: Signed - Problem List (1) Head and neck cancer Status: Acute (2) Regional lymph node metastasis present Status: Acute - Date of Service Date of Service:: 02/10/19 - Chief Complaint Metastatic head and neck cancer on treatment - History of Present Illness 58-year-old male smoker and active alcoholic who presented with a painless left neck mass that has progressively increased in size over the course of the past couple of months. December 17, 2018 CT soft tissues of the neck: FINDINGS: There is a rim-enhancing centrally cystic mass distal to the angle the mandible, lateral to the hyoid cartilage, along the anterior margin of the sternocleidomastoid muscle. Wall thickness up to 4.9 mm. Process measures approximately 1.8 cm craniocaudal, 1.8 cm transverse, 2.9 cm anterior-posterior. Posteriorly and deep to the sternomastoid muscle, single mildly enlarged lymph node measuring 1.2 x 1.6 cm. A few additional shotty lymph nodes are present on the left. Normal thyroid. Normal submandibular glands and parotid glands. There is no right cervical lymphadenopathy. Pharyngeal and laryngeal soft tissues appear normal. Multilevel cervical spondylosis with disc disease most notable at C5-C6 with uncovertebral joint hypertrophy contributing to mild foraminal narrowing. Mucoperiosteal thickening and mucous retention cysts of the maxillary sinuses. Solitary opacified posterior right ethmoid sinus. Mastoid air cells and middle ear cavities clear. 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 December 17, 2018 CT chest: FINDINGS: Supraclavicular: No acute process within the [id number]. Body wall soft tissues: No acute process. Upper abdomen: No acute process. Osseous structures: No acute process. Mild scoliosis, moderate kyphosis, mild multilevel thoracic spondylosis. Mediastinum: No acute process. Cardiovascular: No acute process. Lungs: A few small scattered pulmonary nodules are present. The largest is in the right upper lobe anterior segment, series 6 image 73, 5 cm, solid features, smooth margins. Unremarkable airways. IMPRESSION: No acute thoracic process is evident. Small pulmonary nodules. The largest measures approximately 5 mm. Follow-up low-dose CT chest is recommended in 1 year for pulmonary nodule surveillance purposes. December 22, 2018 DIAGNOSIS CYTOLOGY A. 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 See comment. B. 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 ANTIBODY / CLONE RESULT Block A AE1-3 (AE1/AE3/PCK26) positive CK7 (OV-TL12/30) negative CK8 (35zgtyU79) positive, weak CK20 (KS20.8) negative TTF-1 (8G7G3/1) negative Napsin A (Rabbit Polyclonal) negative HepPar (OCh1E5) negative RCC (PN-15) negative PSAP (PASE/4LJ) negative CK5-6 (D5 AND 1684) positive P16 (E6H4) negative P40 (BC28) positive, focal January 02, 2019: Patient was evaluated by ENT : oral and oropharyngeal mucosa were normal. Flexible laryngoscopy was performed which demonstrated no evidence of lesion. Small cystic lesion of the uvula was felt to be benign. January 05, 2019 PET/CT: IMPRESSION: 1. ABNORMAL EXAMINATION INDICATIVE OF MALIGNANT-VIABLE NEOPLASM. 2. Increased glucose concentration observed in the left lateral neck fulfills quantitative criteria for viable neoplasm. 3. Asymmetric enhanced FDG distribution noted in the left pharyngeal mucosal space may be further investigated with rigorous clinical examination. 4. No other quantitatively significant hypermetabolic abnormalities are noted. There is no definitive scintigraphic evidence of distant metastatic disease. January 30, 2019: left tonsil excision and uvula excision. Pathology displayed no evidence of malignancy or high-grade squamous dysplasia. There was noted to be submucosal dilated minor salivary gland duct with oncocytic metaplasia in the uvula. In preparation for locoregional combined chemoradiation patient Patient underwent multiple dental extractions, placement of PEG tube and port. - Past Medical/Social History Past Medical History Other Cancer History: carcinoma of unknown primary Social History Social History: No changes Smoking Status Current every day smoker Review of Systems Constitutional:: Reports: Weakness, Fatigue - Able to do ADL, Weight loss - Mainly postop, now regaining, Pain - Postop in the throat. Denies: Fever, Sweats, Appetite change, Chills Cardiovascular:: Reports: Dyspnea on exertion. Denies: Chest pain, Palpitations, Orthopnea, PND, Shortness of breath Respiratory: Reports: Shortness of breath upon exertion. Denies: Cough, Hemoptysis, Shortness of Breath, Wheezing Gastrointestinal:: Reports: - - PEG tube in no problems. Denies: Abdominal pain, Nausea, Vomiting, Diarrhea, Constipation, Hematochezia Genitourinary: Denies: Dysuria, Hematuria, 15, Flank pain Musculoskeletal:: Denies: Back pain, Myalgia, Arthralgia Skin: Denies: Rash, Skin Changes, Wounds Neurological:: Denies: Headache, Dizziness, Visual changes, Tinnitus, Hearing loss Psychiatric: Denies: Anxiety, Depression, Homicidal Ideations, Suicidal Ideations Vital Signs Height 5 ft 6 in Weight: 60.963 kg Weight in Pounds 134.4 lbs BMI 22.6 Pulse Ox 98 - Physical Exam General: Alert, Oriented x3, No apparent distress, - - ECOG 1 HEENT: Atraumatic, PERRLA, EOMI, Normocephalic Oropharynx:: Dry mucosa Neck:: Supple, Lymphadenopathy, Trachea midline. Negative for: JVD, bilateral Cardiac:: Regular rate, Regular rhythm, Normal S1, Normal S2. Negative for: Murmur Lungs: Clear to auscultation, Diminished, Excusion symmetrical. Negative for: Rhonchi, Wheezes Abdomen:: Soft, Non-tender, Non-distended, - - PEG tube okay. Negative for: Hepatosplenomegaly Extremities:: Negative for: Cyanosis, Edema Neurological: Neuro grossly intact Skin:: Negative for: Lesions, Rash, Petechiae, Ecchymosis Psychiatric:: Appropriate affect, Euthymic Lymphatics:: Cervical lymphadenopathy. Negative for: Supraclavicular lymphadenopathy, Axillary lymphadenopathy Laboratory Data: CBC, CMP reviewed in EMR Diagnostic Data: Diagnostic Data PET, CT Tumor Imaging 01/05/19 10:00 IMPRESSION: 1. ABNORMAL EXAMINATION INDICATIVE OF MALIGNANT-VIABLE NEOPLASM. 2. Increased glucose concentration observed in the left lateral neck fulfills quantitative criteria for viable neoplasm. 3. Asymmetric enhanced FDG distribution noted in the left pharyngeal mucosal space may be further investigated with rigorous clinical examination. 4. No other quantitatively significant hypermetabolic abnormalities are noted. There is no definitive scintigraphic evidence of distant metastatic disease. Electronic Signature Narendra Weathers D.O. 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 Patient is status post tonsillectomies and uveal excision yet no primary identified. In addition he has indeterminate too small to further characterize lung nodules on chest CT. Comorbid conditions: Smoking and excessive alcohol until the time of diagnosis of malignancy. Plan: Primary radiation therapy + chemosensitization with high-dose cisplatin . Patient was seen with his family. He completed a formal chemo teaching session. Impression and plan reviewed. He will be seen on a weekly basis during the combined modality phase Quincy Simpson MD Environmental Services Floor Tech, [facility] Divisions of Medical Oncology AND Hematology Department of Internal Medicine [place] [phone] This note was generated using a voice recognition system software. It may contain incorrect words, spelling, and punctuation that were not noted when reviewing the office note prior to saving. Medications: Prescriptions This Visit Medication Instructions Recorded Lidocaine/Prilocaine 1 applicatio TP DAILY PRN PRN 30 01/05/19 [Lidocaine-Prilocaine Cream] Days #1 tube Ondansetron [Ondansetron Odt] 8 mg PO Q8H PRN PRN 10 Days #30 01/05/19 Primary Care Provider: Kya Gonzalez NP Referring Provider: 02/10/19 1032 <Electronically signed by Quincy Simpson MD> Date Quincy Simpson MD Cosigner Signature: Date (if applicable) CC: Kya Gonzalez Start: 02-05-2019 End: 02-05-2019 Oncology Follow-Up Visit Comments: See Note; NOTES: [facility] Medical Records Department [address] [place] [id number] Oncology Follow-Up Visit 02/05/19 1145 MR#: [id number] Acct: [id number] Name: MY JAMA Rep #: [id number] : 1960 58 From: Santiago Sellers PCP: Kya Gonzalez [employer] Status: REG RCR Y Location: 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 History of Present Illness: 04/28/2018: Patient underwent EGD due to odynophagia. This demonstrated significant esophagitis in the distal esophagus measuring 1-2 cm in length. Biopsy was obtained. Duodenum and stomach appeared normal. Pathology demonstrated focal changes suggestive of reflux. 12/15/2018: Patient presented to with a left-sided lump involving his neck which was firm and nontender. This lesion was present for about 3-4 weeks. 12/17/2018: CT neck and chest was completed. There are a few small scattered pulmonary nodules present with the largest in the right upper lobe anterior segment measuring 5 mm with solid features and smooth margins. Recommended to have follow-up low-dose chest CT in 1 year for pulmonary nodule surveillance. There is a rim-enhancing centrally cystic mass distal to the angle of the mandible lateral to the hyoid cartilage along the anterior margin of the sternocleidomastoid muscle with wall thickness up to 4.9 mm. Process measures approximately 1.8 cm craniocaudal and 2 1.8 cm transverse and 2.9 cm AP. Posteriorly and deep to the SCM there is a 1.2 x 1.6 cm mildly enlarged lymph node and a few additional shotty lymph nodes present on the left. No evidence of cervical adenopathy on the right. Pharyngeal and laryngeal soft tissues appear normal. 12/22/2018: Ultrasound-guided FNA of the left neck mass was completed and pathology demonstrated malignant cells consistent with keratinizing squamous cell carcinoma with extensive necrosis, p16 negative. 12/31/2018: Evaluation by medical oncology. Recommended ENT evaluation with panendoscopy and PET/CT for staging. 01/02/2019: Patient was evaluated by ENT. On exam he was noted to have a large fixed left cervical radha conglomerate. Also noted was a 1 cm cystic lesion of the uvula. Otherwise oral and oropharyngeal mucosa were normal. Flexible laryngoscopy was performed which demonstrated no evidence of lesion. Small cystic lesion of the uvula was felt to be benign. 01/05/2019: PET scan was performed which demonstrated 2 separate nodular foci of increased glucose metabolism manifest in the left lateral neck level 3 generating a calculated maximum SUV of 8.6 with the larger soft tissue density demonstrating central photopenia in the largest corresponding lesion measured on CT is 2.8 cm x 3.5 cm. There is asymmetric increased FDG distribution defined in the left pharyngeal mucosal space generating a calculated maximum SUV of 3.4 with a maximum axial diameter of corresponding metabolic abnormality measuring 1.9 cm. There is no evidence of metastatic disease identified. Recommendation is to closely clinically evaluate the left pharyngeal area lesion for primary disease. 01/08/2019: Patient underwent dental extraction of numbers 7 through 13 and #14. 01/13/2019: Patient underwent dental extraction of #6 and 2 through 5, he also completed amalgam fillings of #21 through 22 and 28. Following this procedure he was confirmed to be cleared for radiation therapy. 01/26/2019: Patient underwent placement of PEG tube and port. 01/30/2019: Patient completed left tonsil excision and uvula excision. Pathology displayed no evidence of malignancy or high-grade squamous dysplasia. There was noted to be submucosal dilated minor salivary gland duct with oncocytic metaplasia in the uvula. Radiation Treatment History: No previous history of radiation therapy. No pacemaker. No diagnosis of collagen vascular disease. Interval History: Patient comes in for a follow-up prior to CT simulation. 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 He reports healing well from surgery. He believes he had some discomfort with swallowing up until about 2 days ago and this has greatly resolved recently. He is taking Percocet 1-2 times per day until yesterday. He is still focusing on a more soft diet but is progressing as tolerated. He reports losing a couple pounds over the last month as result of the surgery as well as having many of his teeth removed. He had a port and a PEG placed as well and denies any symptoms related to this placement. He is not using his PEG tube at this time, he will meet with nutrition services tomorrow to discuss usage of his PEG tube. He denies dysphasia or coughing with swallowing. He believes the neck mass on the left side has remained relatively stable over the last month, this does not cause much tenderness and he has not noticed any skin involvement or drainage. He continues to drink about 1-2 beers per day and smokes about 2 cigarettes/day. He denies having other problems or concerns at this time. I have reviewed the medical, surgical, and other pertinent history in details and have updated medication and allergy information in the electronic medical record. Review of Systems: A 12-point review of systems was completed and was negative except for what is noted in the HPI/Interval History and by the nurse. Height/Weight/BMI: Height: 5 ft 6 in Weight: 134.4 lbs Vital Signs Temperature 97.7 F L 02/05/19 10:58 Temperature Source Oral 02/05/19 10:58 Pulse Rate 88 02/05/19 10:58 Physical Exam: ECO KARNOFSKY SCORE: 90% CONSTITUTIONAL: Well-developed, well-nourished, and in no apparent distress. HEENT: Mucous membranes moist. Evidence of left tonsillectomy extending to the soft palate and including the uvula area appears to be healing well. No evidence of thrush or lesions within the visualized oropharynx or oral cavity. No trismus. Patient has 8 lower teeth remaining which are without caries or infection, remaining teeth have been removed and gingiva are are well-healed. Pupils are equal, round, and reactive to light and accommodation. Extraocular movements are intact. Sclerae are anicteric. NECK: Supple,with no thyromegaly, and non-tender. Trachea midline. There is a large fairly fixed and firm lymph node involving levels 2 through 3 on the left, no skin erythema or involvement. No other cervical or supraclavicular adenopathy noted. CARDIAC: Regular rate and rhythm. Normal S1, S2. No murmurs, rubs, or gallops. PULMONARY/CHEST: Lungs are clear to auscultation and percussion bilaterally. No wheezes, rhonchi, or crackles noted. No increased work of breathing. ABDOMINAL: Abdomen soft, non-tender, non-distended. No hepatomegaly. Normoactive bowel sounds in all four quadrants. No guarding, rebound. BACK: Straight and aligned. No CVA tenderness. Axial skeleton non-tender to percussion. EXTREMITIES: Full range of motion in all four extremities, with normal strength equally and symmetrically. No evidence of edema. No clubbing. NEUROLOGICAL EXAM: Alert and oriented x 3. Cranial nerves II through XII are grossly intact. No focal neurological deficit. Speech is fluent. There is no upper or lower extremity sensory deficit or motor deficit. Muscle strength is 5/5 in all muscle groups. Gait and posture are steady. PSYCHIATRIC: Appropriate mood and affect for the clinical situation. 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 Clinically the patient is healing well from surgery approximately 1 week ago. I reviewed the results of the pathology from surgery which demonstrated no evidence of squamous cell carcinoma within the uvula or left tonsil. ENT did not feel left neck dissection was warranted at this time given some toxicity risks as the radha disease is essentially involving the SCM. Therefore, after full work-up there remains to be no definitive primary site of disease. I reviewed that with p16 negative SCC with adenopathy within the left level 2 through 3 area and a chronic smoking and alcohol abuse history that the most likely sites of disease would include the oropharynx, larynx, or hypopharynx. I again discussed treatment options and recommended completing definitive chemoradiation therapy with high-dose cisplatin and described treatment of the high risk mucosal sites as well as bilateral neck. I again reviewed the logistics of radiation therapy including CT simulation, treatment planning, and daily fractionated radiation with weekly physician visits. The benefits, risks, and alternatives to radiation therapy were discussed in detail and all questions were addressed. I reiterated the potential side effects of radiation therapy, including but not limited to, acute side effects in the form of skin reactions (redness or darkening or desquamation), irritation/sores in the mouth and throat causing pain while swallowing, loss of facial hair, hoarseness, dryness of mouth, loss of taste sensation and late side effects in the form of persistent dryness of the mouth, loss of taste sensation, fibrosis/ thickening of the skin in the treated area, decrease in jaw mobility, damage to neck blood vessels, damage to brachial plexus, radionecrosis, dental complications, difficulty healing after future surgery, hearing decrease and rare chance of spinal cord damage, were also explained to the patient. The management of acute radiation toxicities during treatment was briefly discussed as well as mouth rinses and other strategies he should complete to reduce toxicity effects. I also discussed smoking and alcohol cessation to minimize mucosal irritation and to improve effects of treatment. I discussed the importance of coming for all treatments without missing any doses to maximize the efficacy of the radiation therapy. The patient was in agreement with my recommendations and all questions were addressed to his satisfaction. CT simulation was completed today and we are planning to initiate chemoradiation in the near future. He was instructed to call with any further questions or concerns in the interim. Santiago Sellers DO, MS Environmental Services Floor Tech, Department of Radiation Oncology [facility] 02/05/19 5739 <Electronically signed by Santiago Sellers DO> Date Santiago Sellers DO CC: Rachel Brooks MD; Quincy Simpson MD Signed Kya Gonzalez Start: 02-04-2019 End: 02-04-2019 Surgery Visit Report Comments: See Note; NOTES: [facility] [address] [place] [address] OFFICE VISIT Date of Service: 02/03/19 MR#: [id number] Acct: [id number] Name: MY JAMA Rep #: [id number] : 1960 Provider: Nimo Ledesma PA-C Age/Sex: 58/M [place] [facility] Status: Signed Intake Intake Visit Reasons: Port Placement AND Feeding Tube 01/26 Chief Complaint: Neck mass Metal Hanging Helper Required: No Is patient in pain?: No Allergies No Known Allergies Allergy (Verified 02/03/19 08:40) Medications Lidocaine/Prilocaine [Lidocaine-Prilocaine Cream] 1 applicatio TP DAILY PRN PRN 30 Days #1 tube 01/05/19 [Rx Confirmed 02/03/19] Ondansetron [Ondansetron Odt] 8 mg PO Q8H PRN PRN 10 Days #30 tab.rapdis 01/05/19 [Rx Confirmed 02/03/19] Prochlorperazine Maleate 10 mg PO Q6H PRN PRN 10 Days #30 tab 01/05/19 [Rx Confirmed 02/03/19] Thiamine Hydrochloride [Vitamin B1] 1 tab PO DAILY 01/05/19 [History Confirmed 02/03/19] Subjective Details: Patient is a 58 y/o male I am following for throat cancer. Dr. Gibson performed a right IJ port and PEG tube placement on 01/26/2019. Patient tolerated the procedure well. Patient notes very little discomfort at the PEG tube site and no discomfort at the port site. Patient has not used the port yet. He recently had his left tonsil removed last Saturday. He will be seeing dietary next week for instruction on the tube feed. Objective Details: Right chest- port site c/d/i. No erythema or infection noted. Moderate amount of ecchymosis noted. Abdomen- PEG tube intact. Slight irritation under the phalange from dressing noted being placed under. Bacitracin was applied followed by dressings. No drainage noted. Assessment AND Plan Problems 1. Head and neck cancer C76.0 Plan - Follow-up as needed Coding Level of Care Code Global Post Op Diagnoses Head and neck cancer C76.0 02/04/19 1426 <Electronically signed by Nimo Ledesma PA-C> Date Nimo Ledesma PA-C Cosigner Signature: Date (if applicable) CC: BOOTH CLEANER Kya Gonzalez Start: 02-03-2019 End: 02-03-2019 Operative Report Comments: See Note; NOTES: [facility] Medical Records Department [address] [place] [address] Operative Report 01/26/19 1045 MR#: [id number] Acct: [id number] Name: MY JAMA Rep #: [id number] : 1960 58 From: Shane Gibson MD PCP: Kya Gonzalez NP Status: [facility] Location: [facility] Problem List (1) Encounter for adjustment or management of vascular access device Status: Acute Report of Operation Date of Procedure: 01/26/19 Pre-Operative Diagnosis: Vascular fitting and adjustment Post-Operative Diagnosis: Same Surgery/Procedure Performed:: Placement of a right IJ PowerPort Type of Anesthesia:: Local MAC Anesthesiologist: Luis Armando Calderon Estimated Blood Loss (mL): <25 cc Fluids Replaced: 900 cc LR Description of Procedure: Patient was brought into the operating room. Placed in the supine position. Patient was placed in the headdown position I ultrasound the right neck identified the internal jugular vein I marked the neck and chest appropriately. The neck and chest were then sterilely prepped and draped in the usual fashion. Local was injected into the neck. Seldinger's technique was used to gain access to the internal jugular vein. Guidewire was placed over the needle the needle was removed. Fluoroscopy was used to confirm proper placement of the guidewire. Local was injected into the chest. Incision was made. Electrocautery was used to create a pocket for the port. Skin asia was made in the neck dilator was placed over the guidewire and removed dilator and sheath were placed over the guidewire removing the dilator and guidewire. Single lumen catheter was placed through the sheath. The sheath was removed. Fluoroscopy was used to confirm proper length. I tunneled from the pocket over the collarbone into the neck and brought the catheter down. I cut it appropriately placed the locking hub under the catheter port onto the catheter and secured the 2 with a locking hub. It flushed and irrigated well was flushed with 5 cc of hep flush. It was sutured into the pocket with 2 sutures of 2-0 Prolene. Skin incisions were brought together with deep dermal stitches of 3-0 Vicryl. Dermabond was applied. Sterile dressings were applied. The patient tolerated the procedure well. Portable chest x-ray was ordered. - Admit VTE Documentation VTE Present on Admission: No VTE Mechan Device Prophylaxis: SCD's VTE Pharm Prophylaxis ordered?: No Reason prophylaxis not ordered:: Treatment Not Indicated 02/03/19 1422 <Electronically signed by Shane Gibson MD> Date Shane Gibson MD CC: BOOTH CLEANER Kya Gonzalez; Shane Gibson MD Signed Kya Gonzalez Start: 01-26-2019 End: 01-26-2019 Operative Report - Endoscopy Comments: See Note; NOTES : [facility] Medical Records Department [address] [place] [address] Operative Report - Endoscopy MR#: [id number] Acct: [id number] Name: MY JAMA Rep #: [id number] : 1960 58 From: Shane Gibson MD PCP: Kya Gonzalez NP Status: REG [facility] 01/26/2019 Kay Gonzalez NP [address] [facility] [address] [place] [address] Re : Upper GI endoscopy procedure for My Jama Dear Bianca Monica This procedure was performed on Saturday, January 26, 2019. My impressions and recommendations are as follows: Impressions : - Normal esophagus. - Normal stomach. - Normal duodenal bulb. - An externally removable PEG placement was successfully completed. - No specimens collected. Recommendations : - Please follow the post-PEG recommendations. - Continue present medications. My findings are described in the full procedure note, which is enclosed. If I can be of further assistance, please feel free to contact me at Doctor phone number(s): , Fax: [phone], Work: . Sincerely, MD Shane Kuhn MD 01/26/2019 12:55:22 PM This report has been signed electronically. 01/26/19 1255 Date Shane Gibson MD Cosigner Signature: Date (if indicated) CC: BOOTH CLEANER Kya Gonzalez; Shane Gibson MD; OUT OF TOWN DOCTOR Date Dictated: 01/26/19 1200 Date Transcribed: Wood Router Hand: DP Signed Kya Gonzalez Start: 01-26-2019 End: 01-26-2019 Discharge Instruction Comments: See Note; NOTES: [facility] Medical Records Department [address] [place] [address] Instructions for Home/Discharge Instructions 01/26/19 1158 MR#: [id number] Acct: [id number] Name: MY JAMA Rep #: [id number] : 1960 58 From: Shane Gibson MD PCP: Kya Gonzalez NP Status: REG [facility] Discharge Diet: No Restrictions - Pain medication may cause nausea. You should typically eat light foods as you take your pain medication. Discharge Activity: May Shower - with the bandage in place 1-2 days after surgery. DO NOT SHOWER WHEN YOUR PORT IS ACCESSED. Additional Activity Instructions:: May not drive, work with heavy equipment, or sign legal documents for [address] if you are no longer taking narcotic pain medications. You may drive when you are no longer taking pain medications. Additional Dressing/Incision Instructions:: Leave the bandage on for 2-3 days. When you remove the bandage, leave the steri-strips intact until they fall off. Allergies/Adverse Reactions: Allergies No Known Allergies Allergy (Verified 01/08/19 12:24) Medications to take at Discharge Lidocaine/Prilocaine [Lidocaine-Prilocaine Cream] 1 applicatio TP DAILY PRN PRN 30 Days #1 tube 01/05/19 Ondansetron [Ondansetron Odt] 8 mg PO Q8H PRN PRN 10 Days #30 tab.rapdis 01/05/19 Prochlorperazine Maleate 10 mg PO Q6H PRN PRN 10 Days #30 tablet 01/05/19 Thiamine Hydrochloride [Vitamin B1] 1 tab PO DAILY 01/05/19 Oxycodone HCl/Acetaminophen [Percocet 5/325] 1 - 2 tab PO Q4H PRN PRN 6 Days #30 tab 01/26/19 The following prescriptions were given: Oxycodone HCl/Acetaminophen [Percocet 5/325] 1 - 2 tab PO Q4H PRN PRN 6 Days #30 tab PRN Reason: Pain Primary Care Physician: Kya Gonzalez NP-C [Primary Care Provider] - Test Results: Test results from this visit will be discussed in further detail at your follow-up appointment, if applicable. Please Follow Up With: Shane Gibson MD - [phone] When: Please plan to follow up in 7 days in the office. 01/26/19 1159 <Electronically signed by Shane Gibson MD> Date Shane Gibson MD CC: BOOTH CLEANER Kya Gonzalez Signed Kya Gonzalez Start: 01-26-2019 End: 01-26-2019 CXR for Line Placement Comments: See Note; NOTES: [facility] Imaging Services [address] [place] [address] CXR for Line Placement MR#: [id number] Acct: [id number] Name: MY JAMA Rep #: [id number] : 1960 M 58 From: Coy White DO PCP: Kya Gonzalez NP Status: [facility] Study: CXR for Line Placement Date of Exam: 01/26/19 Exam# [id number] Ordering Dr: Shane Gibson MD STUDY: X-RAY CHEST REASON FOR EXAM: Male, 58 years old. Postop. Right IJ power port placement TECHNIQUE: Single AP portable view of the chest. COMPARISON: None. FINDINGS: There is hyperinflation of the lungs consistent with chronic obstructive lung disease (COPD). Lungs are clear. Patient right chest wall Mediport with tip in the mid SVC. No pneumothorax. There is no demonstrated pleural abnormality. Normal size heart. Normal mediastinum and michelle. Normal visualized pulmonary arteries. Normal visualized aortic arch and descending thoracic aorta. Normal visualized thoracic spine. Normal visualized ribs, clavicles, and shoulders. There is no demonstrated abnormality of the visualized soft tissue structures of the upper abdomen. RAD/CXR for Line Placement IMPRESSION: Clear lungs. Right chest wall Mediport as above Electronically Signed: Coy White DO at 13:08 EDT Tel , Service support , CC: AJAY Gonzalez; Shane Gibson MD Wood Router Hand: Signed Kya Gonzalez Start: 01-26-2019 End: 01-26-2019 History and Physical Exam Comments: See Note; NOTES: [facility] Medical Records Department [address] [place] [address] History and Physical 01/26/19 1044 MR#: [id number] Acct: [id number] Name: MY JAMA Rep #: [id number] : 1960 58 From: Shane Gibson MD PCP: Kya Gonzalez NP Status: REG [facility] Y Location: [place] [address] History and Physical Date of Admission: 01/26/19 [facility] [address] [place] [address] OFFICE VISIT Date of Service: 01/02/19 MR#: [id number] Acct: [id number] Name: MY JAMA Rep #: [id number] : 1960 Provider: Shane Gibson MD Age/Sex: 58/M Location: [facility] Status: Signed Intake Vital Signs 01/02/19 Body Mass Index (BMI) 22.1 01/02/19 Height 5 ft 6.5 in 01/02/19 Weight: 140 lb 01/02/19 Body Mass Index (BMI) 22.2 Intake Visit Reasons: PORT PLACEMENT AND PEG TUBE Chief Complaint: Neck mass Metal Hanging Helper Required: No Is patient in pain?: No Allergies No Known Allergies Allergy (Verified 01/02/19 10:15) Medications NK 12/19/18 [History Confirmed 01/02/19] [facility] Medical History Acid reflux (Acute) Difficulty swallowing (Acute) Epigastric pain (Acute) Mass of left side of neck (Acute) malignant squamous cell carcinoma lt neck (Acute) Hypertension (Chronic) Surgical History history of biopsy neck (Acute) Family History Mother CVA (cerebral vascular accident) Social History Smoking Status: Current every day smoker alcohol intake: current alcohol intake frequency: a few times a week substance use type: does not use HPI HPI HPI: MY JAMA, is a 58 M who presents to the office today for HPI HPI HPI: MY JAMA, is a 58 M who presents to the office today for evaluation for PEG tube and a port. 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 He will be undergoing radiation to the head and neck as well as chemotherapy and I been consulted to place both a PEG tube and a port. ROS General General: No weight change, appetite, fatigue, colon cancer, breast cancer or weakness HEENT HEENT: No difficulty swallowing, eye injury, eye surgery, swollen glands or hoarseness Endo Endocrine: No thyroid disease, diabetes mellitus, thyroid cancer, Hair loss, heat intolerance or cold intolerance Skin Skin: No rash or changing moles Breast Breast: No left breast lump, right breast lump, nipple discharge, breast pain, abnormal mammogram, abnormal US or breast enlargement Musc Musculoskeletal: No back problems, arthritis, rheumatoid arthritis, gout or joint pain Cardio Cardiovascular: Yes high blood pressure; no murmur, pacemaker, heart disease, atrial fibrillation, heart attack, heart stent, palpitations, shortness of breat with exertion or chest pain Psych Psychiatric: No depression, anxiety or hearing voices Resp Respiratory: No shortness of breath, No sleep apnea, No cough, No COPD, No asthma, No emphysema, No wheezing Gastro Gastrointestinal: No abdominal pain, No nausea or vomiting, No diarrhea, No constipation, No blood in stool, Yes acid reflux, No hemorrhoids, No ulcers, No gallbladder problem, No black,tarry stools Mark Hematologic: No blood thinners, No blood disorders, No bleeding, No anemia, No blood clots Neuro Neurologic: No weakness Exam Const General: no acute distress, well developed, well hydrated Orientation: oriented to person, oriented to place, oriented to time [facility] Head: normocephalic, atraumatic Ears: external ears normal Mouth: moist mucous membranes Eyes Sclera: sclerae normal Pupils: normal by confrontation Neck Neck: no lymphadenopathy noted Neck mass: No Thyroid: thyroid normal, symmetrical Other: Large lymph node is identified in the left anterior neck right anterior neck appears to be free of lymphadenopathy. Chest Chest palpation AND inspection: normal inspection of the chest Breast Palpation: No nipple discharge Resp Effort AND Inspection: normal respiratory effort Auscultation: clear to auscultation bilaterally Percussion: percussion normal Cardio Rate: regular rate Rhythm: regular rhythm Heart Sounds: no murmurs GI Palpation: soft, no hepatosplenomegaly, no masses, nontender Rectal Exam: other Other: Rectal exam deferred. Extrem General: normal to inspection, no clubbing, cyanosis or edema Assessment AND Plan Problems 1. 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 Carcinoma of unknown primary C80.1 3. Vascular catheter fitting or adjustment Z45.2 Plan I plan to perform a right internal drug port a cath placement. The planned surgical procedure was discussed extensively with the patient. The risks, benefits, anticipated outcomes and possible complication were mentioned. My staff has also explained the procedure in understandable terms and the patient was given the option to take printed material concerning the planned procedure. The patient had the opportunity to ask questions concerning the planned procedure. The patient freely consents to the planned procedure. I have discussed the above with the patient. I have offered the patient esophagogastroduodenoscopy with percutaneous endoscopic gastrostomy tube placed for evaluation. I have explained the risks/benefits of the procedure and described the procedure. I have discussed the risks with the patient, including but not limited to: infection, bleeding, perforation of the GI tract requiring emergency surgery, inability to complete the procedure, injury to any internal organs, complications of anesthesia, etc. - the patient understands and agrees to proceed. I have answered all the patient's questions to the patient's satisfaction and the patient has no further questions. The patient has been given instructions for the colon cleansing preparation. 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 There are no clinical changes since date of exam. 01/26/19 1045 <Electronically signed by Shane Gibson MD> Date Shane Gibson MD Cosigner Signature: Date (if applicable) CC: AJAY Gonzalez; Shane Gibson MD Signed Kya Gonzalez Start: 01-21-2019 Basic metabolic 1998 panel - Serum or Plasma Rachel Brooks Start: 01-21-2019 CBC W Auto Differential panel - Blood Rachel Brooks Start: 01-21-2019 Coagulation Screen Rachel Brooks Start: 01-08-2019 End: 01-08-2019 Consultation Comments: See Note; NOTES: [facility] Medical Records Department [address] [place] [address] Consultation 01/08/19 1328 MR#: [id number] Acct: [id number] Name: MY JAMA Rep #: [id number] : 1960 58 From: Santiago Sellers DO PCP: Kya Gonzalez NP Status: REG [facility] Y Location: 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 History of Present Illness: 04/28/2018: Patient underwent EGD due to odynophagia. This demonstrated significant esophagitis in the distal esophagus measuring 1-2 cm in length. Biopsy was obtained. Duodenum and stomach appeared normal. Pathology demonstrated focal changes suggestive of reflux. 12/15/2018: Patient presented to with a left-sided lump involving his neck which was firm and nontender. This lesion was present for about 3-4 weeks. 12/17/2018: CT neck and chest was completed. There are a few small scattered pulmonary nodules present with the largest in the right upper lobe anterior segment measuring 5 mm with solid features and smooth margins. Recommended to have follow-up low-dose chest CT in 1 year for pulmonary nodule surveillance. There is a rim-enhancing centrally cystic mass distal to the angle of the mandible lateral to the hyoid cartilage along the anterior margin of the sternocleidomastoid muscle with wall thickness up to 4.9 mm. Process measures approximately 1.8 cm craniocaudal and 2 1.8 cm transverse and 2.9 cm AP. Posteriorly and deep to the SCM there is a 1.2 x 1.6 cm mildly enlarged lymph node and a few additional shotty lymph nodes present on the left. No evidence of cervical adenopathy on the right. Pharyngeal and laryngeal soft tissues appear normal. 12/22/2018: Ultrasound-guided FNA of the left neck mass was completed and pathology demonstrated malignant cells consistent with keratinizing squamous cell carcinoma with extensive necrosis, p16 negative. 12/31/2018: Evaluation by medical oncology. Recommended ENT evaluation with panendoscopy and PET/CT for staging. 01/02/2019: Patient was evaluated by ENT. On exam he was noted to have a large fixed left cervical radha conglomerate. Also noted was a 1 cm cystic lesion of the uvula. Otherwise oral and oropharyngeal mucosa were normal. Flexible laryngoscopy was performed which demonstrated no evidence of lesion. Small cystic lesion of the uvula was felt to be benign. 01/05/2019: PET scan was performed which demonstrated 2 separate nodular foci of increased glucose metabolism manifest in the left lateral neck level 3 generating a calculated maximum SUV of 8.6 with the larger soft tissue density demonstrating central photopenia in the largest corresponding lesion measured on CT is 2.8 cm x 3.5 cm. There is asymmetric increased FDG distribution defined in the left pharyngeal mucosal space generating a calculated maximum SUV of 3.4 with a maximum axial diameter of corresponding metabolic abnormality measuring 1.9 cm. There is no evidence of metastatic disease identified. Recommendation is to closely clinically evaluate the left pharyngeal area lesion for primary disease. Radiation Treatment History: No previous history of radiation therapy. No pacemaker. Interval History: Patient presents for initial consultation. He reports that in late October he noted a left-sided neck mass that gradually increased in size. He notes no associated pain and believes his neck is complete range of motion. He denies having dry mouth, odynophagia, dysphagia, choking with swallowing, hoarseness, diplopia/vision changes, focal numbness/weakness, headaches, nausea/vomiting, bone pain. He reports having a normal appetite and no difficulty eating, he denies weight loss. He reports some ringing in the left ear but denies having otalgia. He reports having poor dentition but denies dental pain, he was seen by his dentist yesterday and is planning to have dental work done including multiple teeth removed and other restorative work over the next week. Patient has a high performance status and completes all activities of daily living without any difficulty. He has extensive smoking and alcohol history including 1 pack/day for about 30 years smoking and about a 12 pack daily up until recently. Currently he is not smoking, he quit about a week ago, and he is drinking a couple of beers per day but has cut back quite a bit. He denies having other problems or concerns at this time. Family History (Last Reviewed 01/08/19 @ 12:27 by Georgina Reardon RN) Mother CVA (cerebral vascular accident) Medical History (Last Reviewed 01/08/19 @ 12:27 by Georgina Reardon RN) Acid reflux (Acute) Difficulty swallowing (Acute) Epigastric pain (Acute) Mass of left side of neck (Acute) malignant squamous cell carcinoma lt neck (Acute) Hypertension (Chronic) Surgical History (Last Reviewed 01/08/19 @ 12:27 by Georgina Reardon RN) history of biopsy neck (Acute) Social History - Tobacco Smoking Status Current every day smoker Smokeless tobacco usage: Never Years used: 30 Passive smoke exposure: Yes Social History - Substance Drug use: Yes: MARIJUANA Caffeine use [drinks/day]: 1 Alcohol use: Yes Comments: PACK DAILY 1 WEEK DAYS PACK 1 1/2 ON WEEKENDS Social History - Living Arrangements Patients Living Arrangements With Family Home Medications Medication Instructions Recorded Lidocaine/Prilocaine 1 applicatio TP DAILY PRN PRN 30 01/05/19 [Lidocaine-Prilocaine Cream] Days #1 tube Ondansetron [Ondansetron Odt] 8 mg PO Q8H PRN PRN 10 Days #30 01/05/19 Allergy/AdvReac Type Severity Reaction Status Date / Time No Known Allergies Allergy Verified 01/08/19 12:24 Health Maintenance Do you regularly see your No primary care physician? Have you ever had a No colonoscopy? I have reviewed the medical, surgical, and other pertinent history in details and have updated medication and allergy information in the electronic medical record. Review of Systems: A 12-point review of systems was completed and was negative except for what is noted in the HPI/Interval History and by the nurse. Height/Weight/BMI: Height: 5 ft 6 in Weight: 140 lbs Vital Signs Temperature 98.4 F 01/08/19 12:26 Temperature Source Oral 01/08/19 12:26 Pulse Rate 74 01/08/19 12:26 Physical Exam: ECO KARNOFSKY SCORE: 90% CONSTITUTIONAL: Well-developed, well-nourished, and in no apparent distress. HEENT: Mucous membranes moist. There is a somewhat cystic looking lesion involving the left greater than right uvula. There is also possibly mild fullness within the left tonsillar fossa but this is subtle. There is no other evidence of lesions within the oral cavity or visualized oropharynx and there is no evidence of thrush. Dentition is poor with several dental caries and some missing teeth. No trismus. Pupils are equal, round, and reactive to light and accommodation. Extraocular movements are intact. Sclerae are anicteric. NECK: Supple,with no thyromegaly, and non-tender. Trachea midline. There is an approximately 3 cm level 2-3 lymph node in the left neck which is mobile and firm, this is nontender to palpation and there is no evidence for skin redness or skin invasion. No other significant cervical or supraclavicular adenopathy noted. CARDIAC: Regular rate and rhythm. Normal S1, S2. No murmurs, rubs, or gallops. PULMONARY/CHEST: Lungs are clear to auscultation and percussion bilaterally. No wheezes, rhonchi, or crackles noted. No increased work of breathing. ABDOMINAL: Abdomen soft, non-tender, non-distended. No hepatomegaly. Normoactive bowel sounds in all four quadrants. No guarding, rebound. BACK: Straight and aligned. No CVA tenderness. Axial skeleton non-tender to percussion. EXTREMITIES: Full range of motion in all four extremities, with normal strength equally and symmetrically. No evidence of edema. No clubbing. NEUROLOGICAL EXAM: Alert and oriented x 3. Cranial nerves II through XII are grossly intact. No focal neurological deficit. Speech is fluent. There is no upper or lower extremity sensory deficit or motor deficit. Muscle strength is 5/5 in all muscle groups. Gait and posture are steady. PSYCHIATRIC: Appropriate mood and affect for the clinical situation. 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 Clinically the patient has a fairly high performance status and very few other comorbidities, he does have an extensive smoking and alcohol use history. I reviewed the imaging findings and pathology results suggesting that he likely has a left oropharyngeal primary possibly within the tonsillar fossa and also has evidence of 2 lymph nodes in the left neck 1 of which is fairly large at about 3-4 cm. I reviewed the significance of having p16 negative disease and the reduce chance of complete response to chemoradiation. He is planning to meet with ENT tomorrow to either complete biopsy or tonsillectomy to establish the primary site, but I discussed the high likelihood of a left oropharynx primary given the PET scan findings. I reviewed the management of P 16- oropharyngeal cancer including options of surgical resection of the primary as well as neck followed by radiation with or without chemotherapy or the option of completing biopsy/tonsillectomy followed by chemoradiation and potential salvage neck surgery if complete response is not reached. Given that he has P 16- disease and a relatively large left neck lymph node and will have to have 2 sessions of dental work (planned for 01/08/19 and 01/13/19) as well as tonsillectomy, he will have to heal and likely will not initiate radiation for 3-4 weeks. For these reasons I believe it would be reasonable to pursue upfront surgical resection followed by adjuvant radiation therapy with or without chemotherapy. After presenting both options to the patient preferred to proceed with surgical resection up front if possible and would like to have an evaluation by [facility]. He met with his dentist yesterday and he will have several teeth removed and other restorative work completed within the next week. He also has plans for meeting with surgery to consider port and PEG placement. He is no longer smoking and has significantly cut back on alcohol use. I discussed the logistics of external beam radiation therapy including simulation for radiation therapy planning followed by daily treatment for approximately 6-7 weeks. The benefits, risks, and alternatives to radiation therapy were discussed in detail and all questions were addressed. The potential side effects of radiation therapy, including but not limited to, acute side effects in the form of skin reactions (redness or darkening or desquamation), irritation/sores in the mouth and throat causing pain while swallowing, loss of facial hair, hoarseness, dryness of mouth, loss of taste sensation and late side effects in the form of persistent dryness of the mouth, loss of taste sensation, fibrosis/ thickening of the skin in the treated area, decrease in jaw mobility, damage to neck blood vessels, damage to brachial plexus, radionecrosis, dental complications, difficulty healing after future surgery, hearing decrease and rare chance of spinal cord damage, were also explained to the patient. The management of acute radiation toxicities during treatment was briefly discussed. I discussed the importance of coming for all treatments without missing any doses for the efficacy of the radiation therapy. We are planning to have him evaluated by surgery and will return for radiation therapy either postoperatively or after completion of dental work if he is not a good surgical candidate for up front neck dissection. The patient was in agreement with my recommendations and all questions were addressed to his satisfaction. He was instructed to call with any further questions or concerns in the interim. Thank you for allowing me to participate in the management and care of your patient. If I may answer any questions in the interim, please do not hesitate to contact me at any time. Santiago Sellers DO, MS Environmental Services Floor Tech, Department of Radiation Oncology [facility] Code Visit Office Visits / Consults: [id number] OV L4 New 01/08/19 1456 <Electronically signed by Santiago Sellers DO> Date Santiago Doe Signature (if applicable): Date CC: AJAY Gonzalez; Jim Burgos MD; Shane Gibson MD; Quincy Simpson MD Signed Kya Gonzalez Start: 01-08-2019 End: 01-08-2019 Oncology Visit Report Comments: See Note; NOTES: [facility] [address] [place] [address] OFFICE VISIT Date of Service: 01/08/19 1132 MR#: [id number] Acct: [id number] Name: MY JAMA Rep #: [id number] : 1960 From: Quincy Simpson MD Age/Sex: 58/M Location: [facility] Status: Signed - Problem List (1) Head and neck cancer Status: Acute (2) Regional lymph node metastasis present Status: Acute - Date of Service Date of Service:: 01/08/19 - Chief Complaint Neck mass - History of Present Illness 58-year-old male smoker and active alcoholic who presented with a painless left neck mass that has progressively increased in size over the course of the past couple of months. December 17, 2018 CT soft tissues of the neck: FINDINGS: There is a rim-enhancing centrally cystic mass distal to the angle the mandible, lateral to the hyoid cartilage, along the anterior margin of the sternocleidomastoid muscle. Wall thickness up to 4.9 mm. Process measures approximately 1.8 cm craniocaudal, 1.8 cm transverse, 2.9 cm anterior-posterior. Posteriorly and deep to the sternomastoid muscle, single mildly enlarged lymph node measuring 1.2 x 1.6 cm. A few additional shotty lymph nodes are present on the left. Normal thyroid. Normal submandibular glands and parotid glands. There is no right cervical lymphadenopathy. Pharyngeal and laryngeal soft tissues appear normal. Multilevel cervical spondylosis with disc disease most notable at C5-C6 with uncovertebral joint hypertrophy contributing to mild foraminal narrowing. Mucoperiosteal thickening and mucous retention cysts of the maxillary sinuses. Solitary opacified posterior right ethmoid sinus. Mastoid air cells and middle ear cavities clear. 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 December 17, 2018 CT chest: FINDINGS: Supraclavicular: No acute process within the [id number]. Body wall soft tissues: No acute process. Upper abdomen: No acute process. Osseous structures: No acute process. Mild scoliosis, moderate kyphosis, mild multilevel thoracic spondylosis. Mediastinum: No acute process. Cardiovascular: No acute process. Lungs: A few small scattered pulmonary nodules are present. The largest is in the right upper lobe anterior segment, series 6 image 73, 5 cm, solid features, smooth margins. Unremarkable airways. IMPRESSION: No acute thoracic process is evident. Small pulmonary nodules. The largest measures approximately 5 mm. Follow-up low-dose CT chest is recommended in 1 year for pulmonary nodule surveillance purposes. December 22, 2018 DIAGNOSIS CYTOLOGY A. 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 See comment. B. 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 ANTIBODY / CLONE RESULT Block A AE1-3 (AE1/AE3/PCK26) positive CK7 (OV-TL12/30) negative CK8 (39guaxT54) positive, weak CK20 (KS20.8) negative TTF-1 (8G7G3/1) negative Napsin A (Rabbit Polyclonal) negative HepPar (OCh1E5) negative RCC (PN-15) negative PSAP (PASE/4LJ) negative CK5-6 (D5 AND 1684) positive P16 (E6H4) negative P40 (BC28) positive, focal January 05, 2019 PET/CT: IMPRESSION: 1. ABNORMAL EXAMINATION INDICATIVE OF MALIGNANT-VIABLE NEOPLASM. 2. Increased glucose concentration observed in the left lateral neck fulfills quantitative criteria for viable neoplasm. 3. Asymmetric enhanced FDG distribution noted in the left pharyngeal mucosal space may be further investigated with rigorous clinical examination. 4. No other quantitatively significant hypermetabolic abnormalities are noted. There is no definitive scintigraphic evidence of distant metastatic disease. - Interval History Seen the dentist this week, multiple infected teeth are to be extracted this week and follow-up scheduled a week later. Port and PEG to to be placed after dental clearance - Past Medical/Social History Past Medical History Other Cancer History: carcinoma of unknown primary Social History Social History: No changes Smoking Status Current every day smoker Review of Systems Comment: No change, see my note of December 31, 2018, multiple teeth will need to be extracted prior to starting active therapy Vital Signs Height 5 ft 6.5 in Weight: 66.315 kg Weight in Pounds 146.2 lbs Pulse Ox 98 - Physical Exam General: Alert, Oriented x3, No apparent distress Diagnostic Data: Diagnostic Data PET, CT Tumor Imaging 01/05/19 10:00 IMPRESSION: 1. ABNORMAL EXAMINATION INDICATIVE OF MALIGNANT-VIABLE NEOPLASM. 2. Increased glucose concentration observed in the left lateral neck fulfills quantitative criteria for viable neoplasm. 3. Asymmetric enhanced FDG distribution noted in the left pharyngeal mucosal space may be further investigated with rigorous clinical examination. 4. No other quantitatively significant hypermetabolic abnormalities are noted. There is no definitive scintigraphic evidence of distant metastatic disease. Electronic Signature Narendra Weathers D.O. Electronically Signed: Narendra Weathers DO at 20:51 EDT Tel , Service support , Assessment and Plan 58-year-old male smoker and alcoholic with head and neck cancer most likely left pharyngeal wall based on PET CT clinical stage NOREEN (TX,N2, M0) HPV (P 16) negative presenting with a left neck lymph node mass. In addition he has indeterminate too small to further characterize lung nodules on chest CT. Plan: Treatment will include a multimodality approach with radiation therapy, chemosensitization with high-dose cisplatin and possible surgery. 1. Initial ENT evaluation prior to PET did not show a visible anatomic abnormality, will defer to Dr. Alvaerz/ Verito whether repeat endoscopy with focus on the area seen on PET/CT and possible random biopsies. 2. Radiation oncology consultation and planning in progress. 4. Central venous access and feeding tube placement. 5. Formal chemo teaching appointment done. 6. Appointment with PCP to help with cessation of alcohol consumption and avoiding DTs and smoking cessation done. Patient was seen with his family. Will be seen again on start of active treatment.. Medications: Prescriptions This Visit Medication Instructions Recorded Lidocaine/Prilocaine 1 applicatio TP DAILY PRN PRN 30 01/05/19 [Lidocaine-Prilocaine Cream] Days #1 tube Ondansetron [Ondansetron Odt] 8 mg PO Q8H PRN PRN 10 Days #30 01/05/19 Primary Care Provider: Kya Gonzalez NP Referring Provider: 01/08/19 7532 <Electronically signed by Quincy Simpson MD> Date Quincy Simpson MD Cosigner Signature: Date (if applicable) CC: Kya Gonzalez Start: 01-05-2019 End: 01-05-2019 Oncology Visit Report Comments: See Note; NOTES: [facility] [address] [place] [address] OFFICE VISIT Date of Service: 01/05/19 1126 MR#: [id number] Acct: [id number] Name: MY JAMA Rep #: [id number] : 1960 From: Marce BUNN Age/Sex: 58/M Location: [facility] Status: Signed Subjective - Date of Service Date of Service:: 01/05/19 - Chief Complaint Chemotherapy Education- Cisplatin - History of Present Illness 58-year-old male smoker and active alcoholic who presents with a painless left neck mass that has progressively increased in size over the course of the past couple of months. December 17, 2018 CT soft tissues of the neck: FINDINGS: There is a rim-enhancing centrally cystic mass distal to the angle the mandible, lateral to the hyoid cartilage, along the anterior margin of the sternocleidomastoid muscle. Wall thickness up to 4.9 mm. Process measures approximately 1.8 cm craniocaudal, 1.8 cm transverse, 2.9 cm anterior-posterior. Posteriorly and deep to the sternomastoid muscle, single mildly enlarged lymph node measuring 1.2 x 1.6 cm. A few additional shotty lymph nodes are present on the left. Normal thyroid. Normal submandibular glands and parotid glands. There is no right cervical lymphadenopathy. Pharyngeal and laryngeal soft tissues appear normal. Multilevel cervical spondylosis with disc disease most notable at C5-C6 with uncovertebral joint hypertrophy contributing to mild foraminal narrowing. Mucoperiosteal thickening and mucous retention cysts of the maxillary sinuses. Solitary opacified posterior right ethmoid sinus. Mastoid air cells and middle ear cavities clear. 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 December 17, 2018 CT chest: FINDINGS: Supraclavicular: No acute process within the [id number]. Body wall soft tissues: No acute process. Upper abdomen: No acute process. Osseous structures: No acute process. Mild scoliosis, moderate kyphosis, mild multilevel thoracic spondylosis. Mediastinum: No acute process. Cardiovascular: No acute process. Lungs: A few small scattered pulmonary nodules are present. The largest is in the right upper lobe anterior segment, series 6 image 73, 5 cm, solid features, smooth margins. Unremarkable airways. IMPRESSION: No acute thoracic process is evident. Small pulmonary nodules. The largest measures approximately 5 mm. Follow-up low-dose CT chest is recommended in 1 year for pulmonary nodule surveillance purposes. December 22, 2018 DIAGNOSIS CYTOLOGY A. 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 See comment. B. 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 ANTIBODY / CLONE RESULT Block A AE1-3 (AE1/AE3/PCK26) positive CK7 (OV-TL12/30) negative CK8 (46wkhlE98) positive, weak CK20 (KS20.8) negative TTF-1 (8G7G3/1) negative Napsin A (Rabbit Polyclonal) negative HepPar (OCh1E5) negative RCC (PN-15) negative PSAP (PASE/4LJ) negative CK5-6 (D5 AND 1684) positive P16 (E6H4) negative P40 (BC28) positive, focal - Interval History The patient is presenting to clinic accompanied by friend, Gladys for chemotherapy education. It has been proposed he begin concomitant radiation and Cisplatin. Reports he had a consult with ENT, Dr. Burgos last week. Per patient, was told on examination nothing is there referring to an area for biopsy. Met with surgery, Dr. Gibson to place port and PEG tube next week. Also, is obtaining nicotine replacement patches and antabuse. Pcp has recommended he begin a 180 alcohol program as well. - Past Medical/Social History Social History Smoking Status Current every day smoker Review of Systems Constitutional:: Denies: Fever, Sweats, Weight loss, Appetite change, Chills Cardiovascular:: Reports: Dyspnea on exertion. Denies: Chest pain, Palpitations, Orthopnea, PND, Shortness of breath Respiratory: Reports: Cough. Denies: Hemoptysis, Wheezing Gastrointestinal:: Denies: Abdominal pain, Nausea, Vomiting, Diarrhea, Constipation, Hematochezia Genitourinary: Denies: Dysuria, Hematuria, 15, Flank pain Musculoskeletal:: Denies: Back pain, Myalgia, Arthralgia Skin: Denies: Rash, Skin Changes, Wounds Neurological:: Reports: Tinnitus - left ear. Denies: Headache, Dizziness, Numbness, Tingling, Visual changes, Hearing loss Psychiatric: Denies: Anxiety, Depression, Homicidal Ideations, Suicidal Ideations Vital Signs Height 5 ft 6.5 in Weight: 139 lb 3.2 oz Weight in Pounds 139.2 lbs Pulse Ox 100 - Physical Exam General: Alert, Oriented x3, No apparent distress HEENT: Atraumatic, EOMI, Normocephalic, - - wears glasses Oropharynx:: Negative for: Dry mucosa, Ulcerated lesions Neck:: Supple, Trachea midline. Negative for: JVD, bilateral Cardiac:: Regular rate, Regular rhythm, Normal S1, Normal S2. Negative for: Murmur Lungs: Clear to auscultation, Diminished, Excusion symmetrical. Negative for: Rhonchi, Wheezes Abdomen:: Bowel sounds x 4, Soft, Non-tender, Non-distended. Negative for: Hepatosplenomegaly Extremities:: Negative for: Cyanosis, Edema Neurological: Neuro grossly intact Skin:: Negative for: Lesions, Rash, Petechiae, Ecchymosis Psychiatric:: Appropriate affect, Euthymic Lymphatics:: Negative for: Cervical lymphadenopathy, Supraclavicular lymphadenopathy, Axillary lymphadenopathy Assessment and Plan 58-year-old male smoker and alcoholic with clinical stage NOREEN (TX, and 2, M0) HPV (P 16) negative presenting with a left neck lymph node mass. In addition he has indeterminate too small to further characterize lung nodules on chest CT. Plan: Treatment will include a multimodality approach with radiation therapy, chemosensitization with high-dose cisplatin and possible surgery. The patient has been thoroughly educated to risks/benefits associated with chemotherapy, cisplatin. Specifically, he has been educated to potential side effects, recommendations for symptom management, and circumstances in which he should contact provider immediately, such as the development of any signs/symptoms of infection inclusive of temperature > 100.4. Encouraged to go directly to ED should fever occur outside normal clinic hours. He has been provided written educational information and after hours contact information and prescriptions for prn antiemetics/EMLA cream. Greater than 50% of this one hour visit was spent in counseling and a significant amount of time was allotted for questions. All the patient's concerns were addressed to his satisfaction and he is agreeable to proceed. Tentatively, he [facility] 1. ENT evaluation with [facility] end[facility]- On Saturday01/02/19. No biopsies were obtained. Per patient didn't find anything. 2. PET CT for initial staging- Scheduled for later today. 3. Radiation oncology consultation 4. Central venous access and feeding tube placement- Port to be placed on 01/13/19 and PEG tube 01/15/19. 5. Appointment with PCP to help with cessation of alcohol consumption and avoiding DTs and smoking cessation- Being managed by pcp. Has nicotine replacement patches and 180 program. RTO 01/08/19 to review PET with Dr. Simpson as previously planned. Marce Maxwell, [employer], AOCNP Primary Care Provider: Kya Gonzalez NP Referring Provider: - Problem List (1) Carcinoma of unknown primary Status: Acute (2) Regional lymph node metastasis present Status: Acute (3) Encounter for education Status: Acute 01/05/19 1315 <Electronically signed by Marce BUNN> Date Marce BUNN Cosigner Signature: Date (if applicable) CC: Kya Gonzalez Start: 01-05-2019 PET/CT Tumor Base -Thigh Init BOOTH CLEANERLulu Gonzalez NP Work Phone: Start: 01-04-2019 End: 01-04-2019 Surgery Visit Report Comments: See Note; NOTES: [facility] [address] [place] [address] OFFICE VISIT Date of Service: 01/02/19 MR#: [id number] Acct: [id number] Name: MY JAMA Rep #: [id number] : 1960 Provider: Shane Gibson MD Age/Sex: 58/M Location: [facility] Status: Signed Intake Vital Signs01/02/19 Body Mass Index (BMI) 22.1 01/02/19 Height 5 ft 6.5 in 01/02/19 Weight: 140 lb 01/02/19 Body Mass Index (BMI) 22.2 Intake Visit Reasons: PORT PLACEMENT AND PEG TUBE Chief Complaint: Neck mass Metal Hanging Helper Required: No Is patient in pain?: No Allergies No Known Allergies Allergy (Verified 01/02/19 10:15) Medications NK 12/19/18 [History Confirmed 01/02/19] [facility] Medical History Acid reflux (Acute) Difficulty swallowing (Acute) Epigastric pain (Acute) Mass of left side of neck (Acute) malignant squamous cell carcinoma lt neck (Acute) Hypertension (Chronic) Surgical History history of biopsy neck (Acute) Family History Mother CVA (cerebral vascular accident) Social History Smoking Status: Current every day smoker alcohol intake: current alcohol intake frequency: a few times a week substance use type: does not use HPI HPI HPI: MY JAMA, is a 58 M who presents to the office today for HPI HPI HPI: MY JAMA, is a 58 M who presents to the office today for evaluation for PEG tube and a port. 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 He will be undergoing radiation to the head and neck as well as chemotherapy and I been consulted to place both a PEG tube and a port. ROS General General: No weight change, appetite, fatigue, colon cancer, breast cancer or weakness HEENT HEENT: No difficulty swallowing, eye injury, eye surgery, swollen glands or hoarseness Endo Endocrine: No thyroid disease, diabetes mellitus, thyroid cancer, Hair loss, heat intolerance or cold intolerance Skin Skin: No rash or changing moles Breast Breast: No left breast lump, right breast lump, nipple discharge, breast pain, abnormal mammogram, abnormal US or breast enlargement Musc Musculoskeletal: No back problems, arthritis, rheumatoid arthritis, gout or joint pain Cardio Cardiovascular: Yes high blood pressure; no murmur, pacemaker, heart disease, atrial fibrillation, heart attack, heart stent, palpitations, shortness of breat with exertion or chest pain Psych Psychiatric: No depression, anxiety or hearing voices Resp Respiratory: No shortness of breath, No sleep apnea, No cough, No COPD, No asthma, No emphysema, No wheezing Gastro Gastrointestinal: No abdominal pain, No nausea or vomiting, No diarrhea, No constipation, No blood in stool, Yes acid reflux, No hemorrhoids, No ulcers, No gallbladder problem, No black,tarry stools Mark Hematologic: No blood thinners, No blood disorders, No bleeding, No anemia, No blood clots Neuro Neurologic: No weakness Exam Const General: no acute distress, well developed, well hydrated Orientation: oriented to person, oriented to place, oriented to time [facility] Head: normocephalic, atraumatic Ears: external ears normal Mouth: moist mucous membranes Eyes Sclera: sclerae normal Pupils: normal by confrontation Neck Neck: no lymphadenopathy noted Neck mass: No Thyroid: thyroid normal, symmetrical Other: Large lymph node is identified in the left anterior neck right anterior neck appears to be free of lymphadenopathy. Chest Chest palpation AND inspection: normal inspection of the chest Breast Palpation: No nipple discharge Resp Effort AND Inspection: normal respiratory effort Auscultation: clear to auscultation bilaterally Percussion: percussion normal Cardio Rate: regular rate Rhythm: regular rhythm Heart Sounds: no murmurs GI Palpation: soft, no hepatosplenomegaly, no masses, nontender Rectal Exam: other Other: Rectal exam deferred. Extrem General: normal to inspection, no clubbing, cyanosis or edema Assessment AND Plan Problems 1. 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 Carcinoma of unknown primary C80.1 3. Vascular catheter fitting or adjustment Z45.2 Plan I plan to perform a right internal drug port a cath placement. The planned surgical procedure was discussed extensively with the patient. The risks, benefits, anticipated outcomes and possible complication were mentioned. My staff has also explained the procedure in understandable terms and the patient was given the option to take printed material concerning the planned procedure. The patient had the opportunity to ask questions concerning the planned procedure. The patient freely consents to the planned procedure. I have discussed the above with the patient. I have offered the patient esophagogastroduodenoscopy with percutaneous endoscopic gastrostomy tube placed for evaluation. I have explained the risks/benefits of the procedure and described the procedure. I have discussed the risks with the patient, including but not limited to: infection, bleeding, perforation of the GI tract requiring emergency surgery, inability to complete the procedure, injury to any internal organs, complications of anesthesia, etc. - the patient understands and agrees to proceed. I have answered all the patient's questions to the patient's satisfaction and the patient has no further questions. The patient has been given instructions for the colon cleansing preparation. Coding Level of Care Code Off vis,est,level 3 Diagnoses Regional lymph node metastasis present C77.9 Carcinoma of unknown primary C80.1 Vascular catheter fitting or adjustment Z45.2 01/04/19 1614 <Electronically signed by Shane Gibson MD> Date Shane Gibson MD Cosigner Signature: Date (if applicable) CC: Kya Gonzalez Start: 01-02-2019 End: 01-07-2019 PET/CT Tumor Base -Thigh Init Comments: See Note; NOTE S: [facility] Imaging Services [address] [place] [address] PET/CT Tumor Base -Thigh Init MR#: [id number] Acct: [id number] Name: MY JAMA Rep #: [id number] : 1960 M 58 From: Narendra Weathers DO PCP: Kya Gonzalez NP Status: REG RCR Study: PET/CT Tumor Base -Thigh Init Date of Exam: 01/05/19 Exam# [id number] Ordering Dr: Quincy Simpson MD EXAMINATION: FDG PET CT INDICATIONS: A 58-year-old male with history of head and neck carcinoma presenting for initial staging examination. COMPARISON EXAMINATION: CT of the neck report dated 12/17/18, CT of the chest report dated 12/17/18. INDEX LESION SIZE SUV INTERPRETATION Left lateral neck level III (n = 2) 27.8 mm x 35.4 mm largest (frame 224) 8.6 (max) Fulfills quantitative criteria for viable neoplasm Left pharyngeal mucosal space 18.9 mm (frame 234) 3.4 May necessitate histopathologic investigation secondary to the quantitative degree of uptake TECHNIQUE: Following the intravenous administration of 17.6 mCi of F-18 deoxyglucose via the right antecubital fossa, multiplanar image acquisitions of the neck, chest, abdomen and pelvis to level of mid thigh, obtained at one hour post radiopharmaceutical administration contemporaneously interpreted with the current CT of the neck, chest, abdomen and pelvis to level of mid thigh, dated 01/05/[address] of the neck report dated 12/17/18, CT of the chest report dated 12/17/18 reveal: SERUM GLUCOSE LEVEL: 81 mg/dl. HEIGHT: 66 inches. WEIGHT: 145 lbs. FINDINGS: 1. Two separate nodular foci of increased glucose metabolism are manifest in the left lateral neck, level III generating a calculated maximum standard uptake value of 8.6. The larger soft tissue density demonstrates central photopenia on review of the metabolic data set. The largest corresponding metabolic, morphologic abnormality demonstrates a maximal axial diameter of 27.8 mm (transverse) x 35.4 mm (AP). 2. Asymmetric increased FDG distribution is defined in the left pharyngeal mucosal space generating a calculated maximum standard uptake value of 3.4. The maximal axial diameter of the corresponding metabolic abnormality on review of CT of the neck dated 01/05/19 is 18.9 mm (transverse). 3. Normal physiologic distribution of the radiopharmaceutical is apparent in the hepatic (2.5) and splenic parenchyma, both renal units, bladder and visualized intestinal tract. There is uniform distribution of the radiopharmaceutical concentration defined in the visualized cerebellar hemispheres and cerebral cortical structures.? Diffuse intestinal tract activity is noted throughout all four quadrants of the abdominal-pelvic retroperitoneum, mesentery consistent with normal physiologic distribution of the radiopharmaceutical, most accentuated in the proximal to distal ascending colon. Prominent glucose metabolism defined in the left lower hemipelvis is most consistent with distal ureteric distribution of the radiopharmaceutical. Pertinent CT findings are as follows. CHEST: Bilateral axillary soft tissue densities with fatty hilus formation are non-glucose avid. Centrilobular emphysematous change is noted in the bilateral upper lung zones. There are no parenchymal densities-nodules defined in the right-left hemithorax demonstrating discernible increased glucose metabolism. ABDOMEN AND PELVIS: There is borderline fatty metamorphosis defined within the hepatic parenchyma. Atherosclerotic calcification is defined in the abdominal aorta without evidence of dilatation, aneurysm formation. Pelvic arterial calcification is observed. Calcified phlebolith formation is noted in the left lower hemipelvis. Bilateral inguinal soft tissue densities with fatty hilus formation are ametabolic. SKELETAL: Degenerative changes defined in the cervical, thoracic and lumbar spine demonstrate no evidence for glucose hypermetabolism. PET/PET/CT Tumor Base -Thigh Init IMPRESSION: 1. ABNORMAL EXAMINATION INDICATIVE OF MALIGNANT-VIABLE NEOPLASM. 2. Increased glucose concentration observed in the left lateral neck fulfills quantitative criteria for viable neoplasm. 3. Asymmetric enhanced FDG distribution noted in the left pharyngeal mucosal space may be further investigated with rigorous clinical examination. 4. No other quantitatively significant hypermetabolic abnormalities are noted. There is no definitive scintigraphic evidence of distant metastatic disease. Electronic Signature Narendra Weathers D.O. Electronically Signed: Narendra Weathers DO at 20:51 EDT Tel , Service support , CC: AJAY Gonzalez; Quincy Simpson MD Wood Router Hand: Signed Kya Gonzalez Start: 12-31-2018 End: 12-31-2018 Oncology History and Physical Comments: See Note; NOTE S: [facility] Medical Records Department [address] [place] [address] History and Physical 12/31/18913 MR#: [id number] Acct: [id number] Name: MY JAMA Rep #: [id number] : 1960 58 From: Quincy Simpson MD PCP: Kya Gonzalez NP Status: REG RCR Y Location: OMD - Problem List (1) Carcinoma of unknown primary Status: Acute Subjective Date of Service:: 12/31/18 Chief Complaint: Neck mass History of Present Illness: 58-year-old male smoker and active alcoholic who presents with a painless left neck mass that has progressively increased in size over the course of the past couple of months. December 17, 2018 CT soft tissues of the neck: FINDINGS: There is a rim-enhancing centrally cystic mass distal to the angle the mandible, lateral to the hyoid cartilage, along the anterior margin of the sternocleidomastoid muscle. Wall thickness up to 4.9 mm. Process measures approximately 1.8 cm craniocaudal, 1.8 cm transverse, 2.9 cm anterior-posterior. Posteriorly and deep to the sternomastoid muscle, single mildly enlarged lymph node measuring 1.2 x 1.6 cm. A few additional shotty lymph nodes are present on the left. Normal thyroid. Normal submandibular glands and parotid glands. There is no right cervical lymphadenopathy. Pharyngeal and laryngeal soft tissues appear normal. Multilevel cervical spondylosis with disc disease most notable at C5-C6 with uncovertebral joint hypertrophy contributing to mild foraminal narrowing. Mucoperiosteal thickening and mucous retention cysts of the maxillary sinuses. Solitary opacified posterior right ethmoid sinus. Mastoid air cells and middle ear cavities clear. 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 December 17, 2018 CT chest: FINDINGS: Supraclavicular: No acute process within the [id number]-[id number]. Body wall soft tissues: No acute process. Upper abdomen: No acute process. Osseous structures: No acute process. Mild scoliosis, moderate kyphosis, mild multilevel thoracic spondylosis. Mediastinum: No acute process. Cardiovascular: No acute process. Lungs: A few small scattered pulmonary nodules are present. The largest is in the right upper lobe anterior segment, series 6 image 73, 5 cm, solid features, smooth margins. Unremarkable airways. IMPRESSION: No acute thoracic process is evident. Small pulmonary nodules. The largest measures approximately 5 mm. Follow-up low-dose CT chest is recommended in 1 year for pulmonary nodule surveillance purposes. December 22, 2018 DIAGNOSIS CYTOLOGY A. 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 See comment. B. 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 ANTIBODY / CLONE RESULT Block A AE1-3 (AE1/AE3/PCK26) positive CK7 (OV-TL12/30) negative CK8 (78rsudN15) positive, weak CK20 (KS20.8) negative TTF-1 (8G7G3/1) negative Napsin A (Rabbit Polyclonal) negative HepPar (OCh1E5) negative RCC (PN-15) negative PSAP (PASE/4LJ) negative CK5-6 (D5 AND 1684) positive P16 (E6H4) negative P40 (BC28) positive, focal Power of Rag Room Supervisor: No Living Will: Yes Health History: Past Medical History (Last Reviewed 12/31/18 @ 09:04 by Angélica Hastings) Acid reflux (Acute) Difficulty swallowing (Acute) Epigastric pain (Acute) Mass of left side of neck (Acute) malignant squamous cell carcinoma lt neck (Acute) Hypertension (Chronic) Past Surgical History (Last Reviewed 12/31/18 @ 09:04 by Angélica Hastings) history of biopsy neck (Acute) Family History (Last Reviewed 12/31/18 @ 09:05 by Angélica Hastings) Mother CVA (cerebral vascular accident) Allergies/Adverse Reactions: Allergy/AdvReac Type Severity Reaction Status Date / Time No Known Allergies Allergy Verified 12/31/18 09:05 Risk Factors Tobacco Risk Data: Tobacco Risk Smoking Status Type of tobacco: Smokeless tobacco usage: Items/Day: Year started: Years used: Counseled to quit/cut down: Reason for no counseling performed: Reason for no pharmacotherapy: Tobacco use comments: Passive smoke exposure: Substance Risk Drug use: Caffeine use [drinks/day]: Alcohol use: Type of alcohol: Drinks per day: Has patient felt the need to cut down: Has the patient been annoyed by complaints: Has the patient felt guilty about drinking: Has the patient needed an eye social services counselor in the mornings: Comments: Review of Systems Constitutional:: Denies: Fever, Sweats, Weight loss, Appetite change, Chills Cardiovascular:: Reports: Dyspnea on exertion. Denies: Chest pain, Palpitations, Orthopnea, PND, Shortness of breath Respiratory: Reports: Shortness of breath upon exertion - Painless mass left neck, see HPI. Denies: Cough, Hemoptysis, Shortness of Breath, Wheezing Gastrointestinal:: Denies: Abdominal pain, Nausea, Vomiting, Diarrhea, Constipation, Hematochezia Genitourinary: Denies: Dysuria, Hematuria, 15, Flank pain Musculoskeletal:: Denies: Back pain, Myalgia, Arthralgia Skin: Denies: Rash, Skin Changes, Wounds Neurological:: Denies: Headache, Dizziness, Visual changes, Tinnitus, Hearing loss Psychiatric: Denies: Anxiety, Depression, Homicidal Ideations, Suicidal Ideations - Physical Exam General: Alert, Oriented x3, No apparent distress, - - ECOG 0, strong smell of cigarette smoke HEENT: Atraumatic, PERRLA, EOMI, Normocephalic Oropharynx:: Dry mucosa Neck:: Supple, Trachea midline. Negative for: JVD, bilateral Cardiac:: Regular rate, Regular rhythm, Normal S1, Normal S2. Negative for: Murmur Lungs: Clear to auscultation, Diminished, Excusion symmetrical. Negative for: Rhonchi, Wheezes Abdomen:: Soft, Non-tender, Non-distended. Negative for: Hepatosplenomegaly Extremities:: Negative for: Cyanosis, Edema Neurological: Neuro grossly intact Skin:: Negative for: Lesions, Rash, Petechiae, Ecchymosis Psychiatric:: Appropriate affect, Euthymic Lymphatics:: Cervical lymphadenopathy - Upper neck 4 cm matted lymph node mass. 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 In addition he has indeterminate too small to further characterize lung nodules on chest CT. Plan: Treatment will include a multimodality approach with radiation therapy, chemosensitization with high-dose cisplatin and possible surgery. 1. ENT evaluation with henry endoscopy, appointment scheduled January [address] Alvarez. 2. PET CT for initial staging. 3. Radiation oncology consultation. 4. Central venous access and feeding tube placement. 5. Formal chemo teaching appointment with BOOTH CLEANER to schedule. 6. Appointment with PCP to help with cessation of alcohol consumption and avoiding DTs and smoking cessation. Patient was seen with his 3 daughters (all smokers) impression and plan discussed. Follow-up after the PET/CT and ENT evaluation. Primary Care Provider: Kya Gonzalez NP Referring Provider: 12/31/18 1001 <Electronically signed by Quincy Simpson MD> Date Quincy Simpson MD Cosigner Signature: Date (if applicable) CC: Kya Gonzalez BOOTH CLEANER; Kya gonzalez; Jim Burgos MD; Shane Gibson MD; Quincy Simpson MD; Santiago Sellers DO Signed Kya Gonzalez Start: 12-25-2018 End: 12-25-2018 Surgery Visit Report Comments: See Note; NOTES: [facility] [address] [place] [address] OFFICE VISIT Date of Service: 12/19/18 MR#: [id number] Acct: [id number] Name: MY JAMA Rep #: [id number] : 1960 Provider: Shane Gibson MD Age/Sex: 58/M Location: [facility] Status: Signed Intake Vital Signs12/19/18 Height 5 ft 6 in 12/19/18 Weight: 144 lb Intake Visit Reasons: NECK MASS/XRAY @ [facility] Metal Hanging Helper Required: No Is patient in pain?: No Allergies No Known Allergies Allergy (Verified 12/22/18 09:19) Medications NK 12/19/18 [History Confirmed 12/19/18] [facility] Medical History Acid reflux (Acute) Difficulty swallowing (Acute) Epigastric pain (Acute) Mass of left side of neck (Acute) Hypertension (Chronic) Surgical History history of biopsy neck (Acute) Family History Mother CVA (cerebral vascular accident) Social History alcohol intake: current alcohol intake frequency: a few times a week substance use type: does not use HPI HPI HPI: MY JAMA, is a 58 M who presents to the office today for evaluation of the left neck mass. Patient has had this mass for less than [address] scan of the neck showed along the anterior margin of the sternocleidomastoid muscle a 1.8 x 1.8 x 2.9 cm enhancing mass with a central cystic lesion. He has had no pain with this he has had some dental discomfort. ROS General General: No weight change, appetite, fatigue, colon cancer, breast cancer or weakness HEENT HEENT: No difficulty swallowing, eye injury, eye surgery, swollen glands or hoarseness Endo Endocrine: No thyroid disease, diabetes mellitus, thyroid cancer, Hair loss, heat intolerance or cold intolerance Skin Skin: No rash or changing moles Breast Breast: No left breast lump, right breast lump, nipple discharge, breast pain, abnormal mammogram, abnormal US or breast enlargement Musc Musculoskeletal: No back problems, arthritis, rheumatoid arthritis, gout or joint pain Cardio Cardiovascular: Yes high blood pressure; no murmur, pacemaker, heart disease, atrial fibrillation, heart attack, heart stent, palpitations, shortness of breat with exertion or chest pain Psych Psychiatric: No depression, anxiety or hearing voices Resp Respiratory: No shortness of breath, No sleep apnea, No cough, No COPD, No asthma, No emphysema, No wheezing Gastro Gastrointestinal: No abdominal pain, No nausea or vomiting, No diarrhea, No constipation, No blood in stool, Yes acid reflux, No hemorrhoids, No ulcers, No gallbladder problem, No black,tarry stools Mark Hematologic: No blood thinners, No blood disorders, No bleeding, No anemia, No blood clots Neuro Neurologic: No system reviewed and no additional complaints, except as docu, No as per HPI, No abnormal walking, No abnormal hearing, No abnormal movements, No abnormal speech, No behavioral changes, No burning sensations, No confusion, No seizure-like activity, No unsteadiness, No dizziness, No localized weakness, No frequent falls, No headache(s), No lack of coordination, No loss of vision, No memory loss, No numbness, No other visual disturbances, No radiating pain, No restless legs, No sensory deficit, No fainting, No tingling, No tremor(s), No weakness, No other Exam Const General: no acute distress, well developed, well hydrated Orientation: oriented to person, oriented to place, oriented to time [facility] Head: normocephalic, atraumatic Ears: external ears normal Mouth: moist mucous membranes Eyes Sclera: sclerae normal Pupils: normal by confrontation Neck Other: Fairly large neck mass easily palpable in the anterior compartment of the left side. There is no cellulitis there is no inflammation. Chest Chest palpation AND inspection: normal inspection of the chest Breast Palpation: No nipple discharge Cardio Rate: regular rate Rhythm: regular rhythm Heart Sounds: no murmurs Extrem General: normal to inspection, no clubbing, cyanosis or edema Assessment AND Plan Problems 1. Mass of left side of neck R22.1 Plan Plan will be to perform a fine-needle aspiration of this. Risk benefits have been reviewed with the patient to include bleeding possible infection he agrees to proceed peer I do not think this is a brachial cleft cyst I am sure that this is more likely going to represent some form of a malignancy Coding Level of Care Code Off vis,est,level 3 Diagnoses Mass of left side of neck R22.1 12/25/18 1150 <Electronically signed by Shane Gibson MD> Date Shane Gibson MD Cosigner Signature: Date (if applicable) CC: Kya Gonzalez Start: 12-17-2018 End: 12-18-2018 Chest WITH Contrast Comments: See Note; NOTES: [facility] Imaging Services [address] [place] [id number] Chest WITH Contrast MR#: [id number] Acct: [id number] Name: MY JAMA Rep #: [id number] : 1960 M 58 From: Narendra Romero MD PCP: Kya Gonzalez NP Status: REG CLI Study: Chest WITH Contrast Date of Exam: 12/17/18 Exam# [id number] Ordering Dr: Kya GonzalezC STUDY: CT CHEST WITH CONTRAST REASON FOR EXAM: Male, 58 years old. Left-sided neck mass 2 months. RADIATION DOSAGE (If Supplied By Facility): DLP = ( 1009 ) mGycm TECHNIQUE: Transaxial imaging was performed following intravenous administration of 100CC IV Isovue 300. Coronal and sagittal 2-D MPR Individualized dose optimization techniques were used for this CT. COMPARISON: CT soft tissue neck 12/17/2018 FINDINGS: Supraclavicular: No acute process within the [id number]. Body wall soft tissues: No acute process. Upper abdomen: No acute process. Osseous structures: No acute process. Mild scoliosis, moderate kyphosis, mild multilevel thoracic spondylosis. Mediastinum: No acute process. Cardiovascular: No acute process. Lungs: A few small scattered pulmonary nodules are present. The largest is in the right upper lobe anterior segment, series 6 image 73, 5 cm, solid features, smooth margins. Unremarkable airways. CT/Chest WITH Contrast IMPRESSION: No acute thoracic process is evident. Small pulmonary nodules. The largest measures approximately 5 mm. Follow-up low-dose CT chest is recommended in 1 year for pulmonary nodule surveillance purposes. Electronically Signed: Narendra Romero MD at 11:49 EDT Tel , Service support , CC: Kya Gonzalez NP Wood Router Hand: Signed Kya Gonzalez Work Phone: Start: 12-17-2018 End: 12-18-2018 Soft Tissue Neck WITH Contrast Comments: See Note; NOTES: [facility] [facility] Imaging Services [address] [place] [id number] Soft Tissue Neck WITH Contrast MR#: [id number] Acct: [id number] Name: MY JAMA Rep #: [id number] : 1960 M 58 From: Narendra Romero MD PCP: Kya Gonzalez NP Status: REG CLI Study: Soft Tissue Neck WITH Contrast Date of Exam: 12/17/18 Exam# [id number] Ordering Dr: Kya Gonzalez NP-C STUDY: CT SOFT TISSUE NECK WITH CONTRAST REASON FOR EXAM: Male, 58 years old. Left-sided neck mass 2 months RADIATION DOSAGE (If Supplied By Facility): CTDIvol = ( 16.55 ) mGy, DLP = ( 1009.11 ) mGycm TECHNIQUE: The patient was scanned in a multi-detector CT scanner. High resolution transaxial imaging was performed following intravenous administration of 100CC IV Isovue 300. Sagittal and coronal images were reconstructed. Individualized dose optimization techniques were used for this CT. COMPARISON: None. FINDINGS: There is a rim-enhancing centrally cystic mass distal to the angle the mandible, lateral to the hyoid cartilage, along the anterior margin of the sternocleidomastoid muscle. Wall thickness up to 4.9 mm. Process measures approximately 1.8 cm craniocaudal, 1.8 cm transverse, 2.9 cm anterior-posterior. Posteriorly and deep to the sternomastoid muscle, single mildly enlarged lymph node measuring 1.2 x 1.6 cm. A few additional shotty lymph nodes are present on the left. Normal thyroid. Normal submandibular glands and parotid glands. There is no right cervical lymphadenopathy. Pharyngeal and laryngeal soft tissues appear normal. Multilevel cervical spondylosis with disc disease most notable at C5-C6 with uncovertebral joint hypertrophy contributing to mild foraminal narrowing. Mucoperiosteal thickening and mucous retention cysts of the maxillary sinuses. Solitary opacified posterior right ethmoid sinus. Mastoid air cells and middle ear cavities clear. 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 Electronically Signed: Narendra Romero MD at 11:45 EDT Tel , Service support , CC: Kya Gonzalez [employer] Hand: Signed Kya Gonzalez Work Phone: [phone] Start: 12-15-2018 End: 12-15-2018 No Known Past Surgical History Xavier Myers Anaerobic microbial culture [employer] CLE[employer]ER-C Kya Ciesa [employer] CLE[employer] Work Phone: [phone] Anaerobic microbial culture [employer]-C Kya Ciesa [employer] CLE[employer] Work Phone: [phone] Anaerobic microbial culture BOOTH CLE[employer]ER-C Kya Ciesa [employer] CLE[employer]ER Work Phone: [phone] Anaerobic microbial culture BOOTH CLE[employer]ER-C Kya Ciesa [employer]OTH CLEANER Work Phone: [phone] Anaerobic microbial culture BOOTH CLE[employer]ER-C Kya Ciesa [employer] CLE[employer]ER Work Phone: [phone] Anaerobic microbial culture [employer]OTH CLE[employer]ER-C Kya Ciesa [employer] CLE[employer]ER Work Phone: [phone] Bacteria identified in Blood by Culture [employer] CLE[employer]ER-C Kya Ciesa [employer] CLE[employer]ER Work Phone: [phone] Bacteria identified in Blood by Culture [employer] CLE[employer]ER-C Kya Ciesa [employer] CLE[employer]ER Work Phone: [phone] H/O: tracheostomy Status post tracheostom y Kya Gonzalez Work Phone: [phone] Investigation of tra nsfusion reaction [employer] CLE[employer]ER-C Kya Ciesa [employer] CLE[employer]ER Work Phone: [phone] Investigation of tra nsfusion reaction BOOTH CLE[employer]ER-C Kya Ciesa [employer] CLE[employer]ER Work Phone: [phone] Investigation of tra nsfusion reaction BOOTH CLEANER-C Kya Ciesa [employer]OTH CLEANER Work Phone: [phone] Investigation of tra nsfusion reaction BOOTH CLEANER-C Kya Ciesa [employer]OTH CLE[employer]ER Work Phone: [phone] Investigation of tra nsfusion reaction BOOTH CLEANER-C Kya Ciesa [employer]OTH CLEANER Work Phone: [phone] Investigation of tra nsfusion reaction BOOTH CLEANER-C Kya Ciesa [employer] CLE[employer]ER Work Phone: [phone] Microbial culture, routine N P-C Kya Ciesa [employer]OTH CLE[employer]ER Work Phone: [phone] Microbial culture, routine N P-C Kya Ciesa [employer] CLE[employer]ER Work Phone: [phone] Microbial culture, routine N P-C Kya Ciesa [employer] CLE[employer]ER Work Phone: [phone] Microbial culture, routine N P-C Kya Gonzalez [employer] CLE[employer]ER Work Phone: [phone] Microbial culture, routine N P-C Kya Gonzalez [employer] CLE[employer]ER Work Phone: [phone] Microbial culture, routine N P-C Kya Gonzalez [employer] CLE[employer] Work Phone: [phone] NEGATED: Highlighted row has not occurred! Denies No history of surgery Kya murrell Work Phone: [phone] Plan of Treatment Date Care Activity Detail Author Start: 05-24-2025 Influenza vaccination Influenz a Vaccine (Season Ended) [facility] Start: 03-01-2025 End: 03-01-2025 Patient encounter procedure 03/01/2025 8:30 AM EDT Office Visit [address] [phone] [place] [address] [place] [address] [facility] Start: 10-21-2024 Egd insert guide wir e dilator passage esophagus EGD GUIDE WIRE INSERTION [facility] Start: 10-21-2024 Patient discharge [facility] Start: 09-15-2024 CORE NDL BX LNG/MED PERQ CORE NDL BX LNG/MED PERQ [facility] Start: 09-15-2024 Following clinical pathway protocol [facility] Start: 09-15-2024 Catheterization of vein [facility] Start: 09-15-2024 Oxygen therapy [facility] Start: 09-15-2024 Patient discharge [facility] Start: 09-15-2024 Vital signs measurements [facility] Start: 05-24-2024 COVID-19 Vaccine ( season) COVID-19 Vaccine ( season) [facility] Start: 05-24-2024 Influenza vaccination U [facility] Start: 02-03-2024 End: 02-03-2024 Clinical Support 02/03/2024 11:30 AM EDT Clinical Support [address] [phone] Jaelyn Patrick, AuD [address] [place] [address] Sensorineural hearing loss (SNHL) of both ears (Primary Dx) [facility] Comment on above: Sensorineural hearin g loss (SNHL) of both ears (Primary Dx) Start: 02-03-2024 End: 02-03-2024 Patient encounter procedure 02/03/2024 8:45 AM EDT Office Visit [address] [phone] [place] [address] [facility] [place] [address] [facility] Start: 11-07-2023 DECLAN, Provider: Segundo Chamorro, Status: Pen, Time: 9:30 AM DECLAN, Provider: Segundo Chamorro, Status: Pen, Time: 9:30 AM NZ-Blaapypirdpgdx-Oyp on Work Phone: Start: 11-07-2023 End: 11-07-2023 Clinical Support 11/07/2023 9:30 AM EST Clinical Support [address] [phone] Jaelyn Patrick, AuD [address] [place] [address] [facility] Start: 09-03-2023 Egd insert guide wir e dilator passage esophagus EGD GUIDE WIRE INSERTION [facility] Start: 09-03-2023 Egd transoral biopsy single/multiple EGD BIOPSY SINGLE/MULTIPLE [facility] Start: 09-03-2023 Patient discharge [facility] Start: 09-02-2023 End: 09-02-2024 Thyrotropin [Units/volume] in Serum or Plasma Thyroid Stimulating Hormone Lab Routine Acquired hypothyroidism Expected: 09/02/2023 (Approximate), Expires: 09/02/2024 [facility] Service Area Work Phone: Comment on above: Expected: 09/02/2023 (Approximate), Expires: 09/02/2024 Start: 09-02-2023 End: 09-02-2024 XR Chest 2 Views XR chest 2 views Imaging Routine 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) Expected: 09/02/2023 (Approximate), Expires: 09/02/2024 [facility] Work Phone: Comment on above: Expected: 09/02/2023 (Approximate), Expires: 09/02/2024 Start: 08-06-2023 Thyroid stimulating hormone measurement TSH Level [facility] Start: 08-05-2023 Patient referral [facility] Work Phone: Start: 07-22-2023 Procedure Education [facility]; [facility] Work Phone: Start: 07-22-2023 Assay of free thyroxine [facility] Work Phone: Start: 07-22-2023 Assay of thyroid stimulating hormone tsh [facility] Work Phone: Start: 05-24-2023 COVID-19 Vaccine ( season) COVID-19 Vaccine ( season) [facility] Start: 05-24-2023 Influenza vaccination Influenza Vacc ine (#1) [facility] Start: 04-18-2023 DECLAN, Provider: Segundo Chamorro, Status: Pen, Time: 3:45 PM DECLAN, Provider: Segundo Chamorro, Status: Pen, Time: 3:45 PM RN-Ldghwkfbaxagwt-Rrb on Work Phone: Start: 04-04-2023 BASILIO, Provider: Segundo Chamorro, Status: Pen, Time: 11:00 AM BASILIO, Provider: Segundo Chamorro, Status: Pen, Time: 11:00 AM WU-Jrktklrbhgqxgq-Ivo on Work Phone: Start: 03-14-2023 TOVA, Provider: Segundo Chamorro, Status: Pen, Time: 1:00 PM TOVA, Provider: Segundo Chamorro, Status: Pen, Time: 1:00 PM ZI-Yinppninzhhhaj-Lbk on Work Phone: Start: 03-06-2023 DUALAUDIO, Provider: Gertrude Howard, Status: Pen, Time: 9:00 AM DUALAUDIO, Provider: Gertrude Howard, Status: Pen, Time: 9:00 AM ZX-Veuzarhsfqmwra-[place]mq [place] Work Phone: Start: 03-06-2023 EPV, Provider: True Kumar, Status: Pen, Time: 9:00 AM EPV, Provider: True Kumar, Status: Pen, Time: 9:00 AM GK-Cbpjfwmhnbyyzr-Zug on [address] Work Phone: Start: 03-06-2023 DUALAUDIO, Provider: Segundo Chamorro, Status: Pen, Time: 8:30 AM DUALAUDIO, Provider: Segundo Chamorro, Status: Pen, Time: 8:30 AM XJ-Cvxmigpwupfmfj-Lvx on [address] Work Phone: Start: 01-21-2023 Assay of thyroid stimulating hormone tsh [facility]; [facility] Work Phone: Start: 01-16-2023 Assay of thiamine-vitamin b-1 [facility]; [facility] Work Phone: Start: 01-16-2023 Assay of thyroid stimulating hormone tsh [facility]; [facility] Work Phone: Start: 01-16-2023 Cyanocobalamin vitam in b-12 [facility]; [facility] Work Phone: Start: 01-16-2023 Lipid panel [facility]; [facility] Work Phone: Start: 01-16-2023 Procedure Education [facility]; [facility] Work Phone: Start: 01-16-2023 Provider Instruction s for Treatment [facility]; [facility] Work Phone: Start: 2022 RSV High Risk: (Elde rly (60+) or Population) (1 - Risk 60-74 years 1-dose series) RSV High Risk: (Elderly (60+) or Population) (1 - Risk 60-74 years 1-dose series) [facility] Start: 2022 RSV patient s and/or patients aged 60+ years (1 - 1-dose 60+ series) RSV patients and/or patients aged 60+ years (1 - 1-dose 60+ series) [facility] Start: 06-18-2022 FUV, Provider: Rachel Brooks, Status: Pen, Time: 8:45 AM FUV, Provider: Rachel Brooks, Status: Pen, Time: 8:45 AM YZ-Kjadqfxdfxgydp-Lmq on Work Phone: Start: 05-14-2022 FUV, Provider: Rachel Brooks, Status: Pen, Time: 8:30 AM FUV, Provider: Rachel Brooks, Status: Pen, Time: 8:30 AM NO-Okinlyckofuimi-Fhv on Work Phone: Start: 04-16-2022 FUV, Provider: Rachel Brooks, Status: Pen, Time: 9:45 AM FUV, Provider: Rachel Brooks, Status: Pen, Time: 9:45 AM LC-Izdoyojdqqswss-Pkz dman Work Phone: Start: 04-02-2022 FUV, Provider: Rachel Brooks, Status: Pen, Time: 8:45 AM FUV, Provider: Rachel Brooks, Status: Pen, Time: 8:45 AM ZC-Ldvkqdaijkwotg-Zhc on Work Phone: Start: 02-22-2022 Basic metabolic pane l calcium total Metabolic Panel, Basic (19618) [facility]; [facility] Work Phone: Start: 02-16-2022 Basic metabolic pane l calcium total [facility]; [facility] Work Phone: Start: 02-15-2022 Basic metabolic pane l calcium total Metabolic Panel, Basic (69052) [facility]; [facility] Work Phone: Start: 02-15-2022 Procedure Education [facility]; [facility] Work Phone: Start: 02-12-2022 FUV, Provider: Rachel Brooks, Status: Pen, Time: 11:15 AM FUV, Provider: Rachel Brooks, Status: Pen, Time: 11:15 AM WZ-Vvlfuwucbwlgcx-Rwq on Work Phone: Start: 01-31-2022 Patient referral [facility] Work Phone: Start: 01-25-2022 Patient discharge [facility] Work Phone: Start: 01-25-2022 Chemotherapy care management [facility] Work Phone: Start: 01-24-2022 [facility] Work Phone: Start: 01-24-2022 Care planning and problem solving actions [facility] Work Phone: Start: 01-24-2022 Speech therapy assessment [facility] Work Phone: Start: 01-24-2022 [facility] Work Phone: Start: 01-23-2022 Referral to oil boiler [facility] Work Phone: Start: 01-22-2022 End: 01-23-2022 [facility] Work Phone: Start: 01-22-2022 Following clinical pathway protocol [facility] Work Phone: Start: 01-22-2022 Ambulation without limitation [facility] Work Phone: Start: 01-22-2022 Application of intermittent pneumatic compression device [facility] Work Phone: Start: 01-22-2022 Assessment of risk o f venous thromboembolism [facility] Work Phone: Start: 01-22-2022 Consultation for treatment [facility] Work Phone: Start: 01-22-2022 Fluid restriction [facility] Work Phone: Start: 01-22-2022 Inhalation therapy procedure [facility] Work Phone: Start: 01-22-2022 Insertion of cathete r into peripheral vein [facility] Work Phone: Start: 01-22-2022 Measuring intake and output [facility] Work Phone: Start: 01-22-2022 Providing care according to standard [facility] Work Phone: Start: 01-22-2022 Wound care [facility] Work Phone: Start: 01-22-2022 Admission procedure [facility] Work Phone: Start: 01-22-2022 Patient referral to dietitian [facility] Work Phone: Start: 01-15-2022 FUV, Provider: Rachel Brooks, Status: Pen, Time: 9:45 AM FUV, Provider: Rachel Brooks, Status: Pen, Time: 9:45 AM BO-Vgsdlncirkmmxq-Mra on Work Phone: Start: 01-15-2022 Patient encounter procedure [facility] [place] Start: 12-18-2021 FUV, Provider: Rachel Brooks, Status: Pen, Time: 3:45 PM FUV, Provider: Rachel Brooks, Status: Pen, Time: 3:45 PM IU-Gjiuwljaqlyyqj-Tah dman Work Phone: Start: 12-15-2021 Procedure Education [facility]; [facility] Work Phone: Start: 12-15-2021 FUV, Provider: Willie Smith, Status: Pen, Time: 10:30 AM FUV, Provider: Willie Smith, Status: Pen, Time: 10:30 AM KM-Yedpmnffbbanqe-Ump in [place] [address] Work Phone: Start: 12-10-2021 Airway suction technique [facility] Work Phone: Start: 12-08-2021 Patient referral [facility] Work Phone: Start: 12-05-2021 End: 12-06-2022 Lidocaine 1% - EPINEPHrine 1:100,000 Injectable SubCutaneous Once ; DOSE = 2 mL SubCutaneous Once Start: 05-Dec-2021 End: 05-Dec-2022 Ordered: 05-Dec-2021 Avinash Otero Intent [facility] Start: 12-04-2021 FUV, Provider: Rachel Brooks, Status: Pen, Time: 3:45 PM FUV, Provider: Rachel Brooks, Status: Pen, Time: 3:45 PM WP-Gtwxowijbbxvlp-Gqd dman Work Phone: Start: 11-29-2021 Patient encounter procedure [facility] Start: 11-29-2021 POV, Provider: Rachel Brooks, Status: Pen, Time: 1:15 PM POV, Provider: Rachel Brooks, Status: Pen, Time: 1:15 PM MY-Kbpznnbaacnhbe-[place] Work Phone: Start: 11-13-2021 End: 11-14-2022 Magnesium Hydroxide Oral Liquid CONCENTRATE 10 mL Oral Every 24 Hours PRN ; (MILK OF MAGNESIA)DOSE = 10 mL PEG Tube Every 24 Hours Start: 13-Nov-2021 End: 13-Nov-2022 Ordered: 13-Nov-2021 La Baez Intent [facility] Start: 11-11-2021 End: 11-12-2022 Albuterol 2.5 mg - Ipratropium 0.5 mg/ 3 mL Neb Soln 3 mL Inhalation Every 4 Hours ; (DUONEB)DOSE = 3 mL Inhalation Every 4 Hours via Nebulizer, PRN Shortness of Breath Start: 11-Nov-2021 End: 11-Nov-2022 Ordered: 19-Feb-202Che[facility] Start: 11-07-2021 [facility], Provider: Rachel Brooks, Status: Pen, Time: 8:00 AM SURGCMC, Provider: Rachel Brooks, Status: Pen, Time: 8:00 AM DT-Xydeikonvydrdc-Uqz dman Work Phone: Start: 11-07-2021 [facility], Provider: Willie Smith, Status: Pen, Time: 8:00 AM SURGCMC, Provider: Willie Smith, Status: Pen, Time: 8:00 AM JV-Peqejybdccmjyv-Gzi dman Work Phone: Start: 11-01-2021 FUV, Provider: Willie Smith, Status: Pen, Time: 8:00 AM FUV, Provider: Willie Smith, Status: Pen, Time: 8:00 AM KE-Lkurpflsulzcip-Tnf in [place] [address] Work Phone: Start: 10-27-2021 FUV, Provider: Willie Smith, Status: Pen, Time: 9:15 AM FUV, Provider: Willie Smith, Status: Pen, Time: 9:15 AM JY-Imxayybwztihtm-Xtz dman Work Phone: Start: 09-13-2021 Assay of thyroid stimulating hormone tsh [facility]; [facility] Work Phone: Start: 08-15-2021 Procedure Education [facility]; [facility] Work Phone: Start: 07-26-2021 Procedure Education [facility]; [facility] Work Phone: Start: 07-26-2021 Provider Instruction s for Treatment [facility]; [facility] Work Phone: Start: 03-13-2021 Assay of prostate specific antigen total [facility]; [facility] Work Phone: Start: 03-13-2021 25 hydroxy includes fractions if performed [facility]; [facility] Work Phone: Start: 03-13-2021 Cyanocobalamin vitam in b-12 [facility]; [facility] Work Phone: Start: 03-13-2021 Comprehensive metabo lic panel [facility]; [facility] Work Phone: Start: 03-13-2021 Blood count complete auto&auto difrntl wbc [facility]; [facility] Work Phone: Start: 03-13-2021 Assay of thyroid stimulating hormone tsh [facility]; [facility] Work Phone: Start: 03-13-2021 Procedure Education [facility]; [facility] Work Phone: Start: 03-13-2021 Provider Instruction s for Treatment [facility]; [facility] Work Phone: Start: 01-17-2021 Comprehensive metabo lic panel [facility]; [facility] Work Phone: Start: 01-17-2021 Cobalamin (Vitamin B 12) [Mass/Vol] VITAMIN B12 AND FOLATES (57699) [facility]; [facility] Work Phone: Start: 01-17-2021 Cyanocobalamin vitam in b-12 [facility]; [facility] Work Phone: Start: 01-17-2021 Assay of thyroid stimulating hormone tsh [facility]; [facility] Work Phone: Start: 01-17-2021 TSH Qn TSH (THYROID STIMULATING HORMONE) (49571) [facility]; [facility] Work Phone: Start: 12-02-2020 Procedure Education [facility]; [facility] Work Phone: Start: 12-02-2020 Provider Instruction s for Treatment [facility]; [facility] Work Phone: Start: 08-29-2020 TSH Qn TSH (THYROID STIMULATING HORMONE) (59451) [facility]; [facility] Work Phone: Comment on above: Oct 06 2020 Start: 08-29-2020 Procedure Education [facility]; [facility] Work Phone: Start: 08-29-2020 Provider Instruction s for Treatment [facility]; [facility] Work Phone: Start: 06-29-2020 TSH Qn TSH (THYROID STIMULATING HORMONE) (47628) [facility] Work Phone: Comment on above: Aug 10 Start: 06-29-2020 Procedure Education [facility] Work Phone: Start: 06-29-2020 Provider Instruction s for Treatment [facility] Work Phone: Start: 05-19-2020 TSH Qn TSH (THYROID STIMULATING HORMONE) (96401) [facility] Work Phone: Start: 04-14-2020 Free T4 [Mass/Vol] T4, FREE (T HYROXINE) (23919) [facility] Work Phone: Comment on above: to be done 6weeks ( end april ) Start: 04-14-2020 TSH Qn TSH (70105) [facility] Work Phone: Comment on above: to be done 6 weeks ( end april) Start: 04-14-2020 Free T3 [Mass/Vol] T3, FREE (TRIDOTHYRONINE) (10813) [facility] Work Phone: Comment on above: to be done 6weeks ( end april) Start: 04-14-2020 Microsomal antibodie s each Anti TPO Antibody (77485) [facility] Work Phone: Start: 04-14-2020 Procedure Education [facility] Work Phone: Start: 12-14-2019 Procedure Education [facility] Work Phone: Start: 06-18-2019 Flushing of Port-a-cath [facility] Start: 06-18-2019 Irrigation of vascul ar catheter [facility] Start: 05-27-2019 [facility] Start: 03-31-2019 [facility] Start: 03-18-2019 [facility] Start: 02-05-2019 [facility] Start: 02-04-2019 [facility] Start: 01-21-2019 [facility] Start: 01-09-2019 [facility] Start: 01-05-2019 [facility] Start: 01-02-2019 Procedure Education [facility] Work Phone: Start: 01-02-2019 Provider Instruction s for Treatment [facility] Work Phone: Start: 01-02-2019 Comprehensive metabo lic panel Metabolic Panel, Comprehensive (44674) [facility] Work Phone: Start: 01-02-2019 Cobalamin (Vitamin B 12) mass conc VITAMIN B12 AND FOLATES (01940) [facility] Work Phone: Start: 01-02-2019 Ammonia mass conc (P) AMMONIA (26680 ) [facility] Work Phone: Start: 12-15-2018 Blood count complete auto&auto difrntl wbc [facility] Work Phone: Start: 12-15-2018 Comprehensive metabo lic panel [facility] Work Phone: Start: 12-15-2018 Procedure Education [facility] Work Phone: Start: 12-15-2018 Provider Instruction s for Treatment [facility] Work Phone: Start: 2012 Zoster Vaccines (1 o f 2) Zoster Vaccines (1 of 2) [facility] Start: 1984 DTaP/Tdap/Td Vaccine s (1 - Tdap) DTaP/Tdap/Td Vaccines (1 - Tdap) [facility] Start: 1981 Pneumococcal vaccination Pneumococcal Vaccine (1 of 2 - PCV) [facility] Start: 1980 Hepatitis C screening Hepatitis C [facility] Start: 1968 Pneumococcal Vaccine : Pediatrics (0 to 5 Years) and At-Risk Patients (6 to 64 Years) (1 - PCV) Pneumococcal Vaccine: Pediatrics (0 to 5 Years) and At-Risk Patients (6 to 64 Years) (1 - PCV) [facility] Start: 1968 Pneumococcal Vaccine : Pediatrics (0 to 5 Years) and At-Risk Patients (6 to 64 Years) (1 of 2 - PCV) Pneumococcal Vaccine: Pediatrics (0 to 5 Years) and At-Risk Patients (6 to 64 Years) (1 of 2 - PCV) [facility] Start: 1963 MMR Vaccines (1 of 1 - Standard series) MMR Vaccines (1 of 1 - Standard series) [facility] Start: 1960 COVID-19 Vaccine (#1) COVID-19 Vacci ne (#1) [facility] Start: 1960 Annual wellness visit Welcome to Medicare Visit [facility] Start: 1960 HIV screening HIV Screening [facility] Start: 1960 Lipid panel Lipid Panel [facility] Start: 1960 Screening for malign ant neoplasm of colon [facility] Start: 1960 Yearly Adult Physical Yearly Adult P hysical [facility] CBC W Auto Different ial panel - Blood [facility] Work Phone: CT Chest W contrast IV [facility] Work Phone: CT Chest W contrast IV [facility] CT Chest W contrast IV [facility] CT Chest W contrast IV [facility] CT Neck W contrast IV [facility] Work Phone: CT Neck W contrast IV [facility] Magnesium [Mass/volu me] in Serum or Plasma [facility] Work Phone: Patient Education [facility] Work Phone: Patient referral [facility] Work Phone: Patient referral to dietitian [facility] Work Phone: Patient referral to dietitian [facility] Work Phone: Comprehensive Internal Medicine Work Phone: [facility] Work Phone: [facility] Work Phone: [facility] Work Phone: [facility] Work Phone: [facility] NEGATED: Highlighted row has been ruled out! Planned Goals not documented LT-Kbdncbnprmektz-Suk in [place] [address] Work Phone: Payers Date Payer Category Payer Medicare (Managed Care) [employer] [id number] 2020 Managed Care (Private) [facility] [id number] 2020 Private Health Insurance [facility] [id number] 2020-Present [address] [address] [place] [address] [id number]. [id number] 2019 Unknown 2019 Unknown [id number] 2018 Medicare [id number] 2018 Self-pay [id number] 2018 Private Health Insurance [id number] 1960 Unknown [id number] 2.16.840.1.687344.3.579. 2.716 1962 Unknown [id number] 2.16.840.1.424939.3.579. 2.356 1962 Unknown [id number] 2.16.840.1.683689.3.579. 2.356 1962 Unknown [id number] 2.16.840.1.717079.3.579. 2.356 1962 Unknown [id number] 2.16.840.1.744456.3.579. 2.356 1962 Unknown [id number] 2.16.840.1.078915.3.579. 2.356 1962 Unknown [id number] 2.16.840.1.840985.3.579. 2.356 1962 Unknown [id number] 2.16.840.1.277309.3.579. 2.356 1962 Unknown [id number] 2.16.840.1.956636.3.579. 2.356 1962 Unknown [id number] 2.16.840.1.497943.3.579. 2.1245 1962 Unknown [id number] 2.16.840.1.293065.3.579. 2.1244 1962 Unknown [id number] 2.16.840.1.014748.3.579. 2.1244 1962 Unknown [id number] 2.16.840.1.445449.3.579. 2.1244 1962 Unknown [id number] 2.16.840.1.446997.3.579. 2.1244 1962 Unknown [id number] 2.16840.1.894135.3.579. 2.1244 Private Health Insurance [id number] Unknown [id number] Unknown [id number] 2.16.840.1.051125.3.579. 2.462 Unknown [id number] 2.16.840.1.865050.3.579. 2.462 Unknown [id number] 2.840.1.624838.3.579. 2.462 Unknown [id number] 2.840.1.097376.3.579. 2.462 Unknown [id number] 2.840.1.241795.3.579. 2.462 Unknown [id number] 2.16840.1.234015.3.579. 2.462 Unknown [id number] 2.16.840.1.284069.3.579. 2.462 Unknown [id number] 2.16.840.1.084966.3.579. 2.462 Unknown [id number] 2.16840.1.699409.3.579. 2.462 Unknown [id number] 2.16.840.1.205416.3.579. 2.462 Unknown [id number] 2.16.840.1.871909.3.579. 2.462 Unknown [id number] 2.16.840.1.019711.3.579. 2.462 Unknown [id number] 2.16.840.1.163423.3.579. 2.462 Unknown [id number] 2.16.840.1.478396.3.579. 2.462 Unknown [id number] 2.16.840.1.390459.3.579. 2.462 Unknown [id number] 2.16.840.1.828448.3.579. 2.462 Unknown [id number] 2.16.840.1.367750.3.579. 2.462 Unknown [id number] 2.16.840.1.913177.3.579. 2.462 Unknown [id number] 2.16.840.1.958973.3.579. 2.462 Unknown [id number] 2.16.840.1.989559.3.579. 2.462 Unknown [id number] 2.16.840.1.886144.3.579. 2.462 Unknown [id number] 2.16.840.1.991162.3.579. 2.462 Unknown [id number] 2.16.840.1.870386.3.579. 2.462 Unknown [id number] 2.16.840.1.061622.3.579. 2.462 Unknown [id number] 2.16.840.1.596026.3.579. 2.462 Unknown [id number] 2.16.840.1.882541.3.579. 2.462 Social History Date Type Detail Facility Start: 09-02-2023 End: 02-03-2024 Alcohol Use Current every day smoker [facility] Work Phone: Comment on above: drinks daily 1 cup Drug Use: No drug use. [facility] Work Phone: Tobacco Use: Current every da y smoker. [facility] Work Phone: Comment on above: 1 pack a day Drug Use: Drug Use: [facility] Work Phone: Tobacco Use: Tobacco Use: [facility] Work Phone: Comment on above: 1 pack a day Start: 12-10-2021 End: 09-02-2023 Tobacco smoking consumption unknown [facility] Start: 11-28-2020 Cigarettes [facility] Start: 1960 Sex Assigned At Male [facility] Former smoker. [facility]; [facility] Work Phone: Start: 09-02-2023 End: 03-01-2025 Tobacco smoking status NHIS Never smoked tobacco [facility] Work Phone: Start: 09-02-2023 End: 03-01-2025 Tobacco use and exposure Smokeless tobacco non-user [facility] Work Phone: Start: 09-02-2023 End: 03-01-2025 Alcohol intake Lifetime non-drinker (finding) [facility] Work Phone: Start: 09-02-2023 End: 02-03-2024 Tobacco use panel [facility] Work Phone: Start: 1960 Sex Assigned At Not on file [facility] Work Phone: Start: 08-23-2023 End: 03-01-2025 Exposure to SARS-CoV-2 (event) Not sure [facility] Start: 10-20-2024 End: 01-29-2025 Tobacco smoking status NHIS Ex-smoker (finding) [facility] Start: 12-22-2024 End: 12-31-2024 Sex Male (finding) [facility] NEGATED: Highlighted row - EA-Hccvxemfprmihz-Pz min [place] [address] Work Phone: NEGATED: Highlighted rowStart: MICHELLEF History of tobacco use Passive smoker [facility] Work Phone: Medical Equipment Procedure Code Equipment Code Equipment Origin al Text Equipment Identifier Dates Insertion, vascular access port PORT,POWER 8FR FDA Start: 01-26-2019 Insertion, vascular access port PORT,POWER 8FR FDA Start: 01-26-2019 Insertion, vascular access port PORT,POWER 8FR FDA Start: 01-26-2019 Insertion, vascular access port PORT,POWER 8FR FDA Start: 01-26-2019 Insertion, vascular access port PORT,POWER 8FR FDA Start: 01-26-2019 Insertion, vascular access port PORT,POWER 8FR FDA Start: 01-26-2019 Insertion, vascular access port PORT,POWER 8FR FDA Start: 01-26-2019 Insertion, vascular access port PORT,POWER 8FR FDA Start: 01-26-2019 Insertion, vascular access port PORT,POWER 8FR FDA Start: 01-26-2019 Insertion, vascular access port PORT,POWER 8FR FDA Start: 01-26-2019 Insertion, vascular access port PORT,POWER 8FR FDA Start: 01-26-2019 Insertion, vascular access port PORT,POWER 8FR FDA Start: 01-26-2019 Insertion, vascular access port PORT,POWER 8FR FDA Start: 01-26-2019 Insertion, vascular access port PORT,POWER 8FR FDA Start: 01-26-2019 Insertion, vascular access port PORT,POWER 8FR FDA Start: 01-26-2019 Insertion, vascular access port PORT,POWER 8FR FDA Start: 01-26-2019 Insertion, vascular access port PORT,POWER 8FR FDA Start: 01-26-2019 Insertion, vascular access port PORT,POWER 8FR FDA Start: 01-26-2019 Insertion, vascular access port PORT,POWER 8FR FDA Start: 01-26-2019 Insertion, vascular access port PORT,POWER 8FR FDA Start: 01-26-2019 Insertion, vascular access port PORT,POWER 8FR FDA Start: 01-26-2019 Insertion, vascular access port PORT,POWER 8FR FDA Start: 01-26-2019 Insertion, vascular access port PORT,POWER 8FR FDA Start: 01-26-2019 Insertion, vascular access port PORT,POWER 8FR FDA Start: 01-26-2019 Insertion, vascular access port PORT,POWER 8FR FDA Start: 01-26-2019 Insertion, vascular access port PORT,POWER 8FR FDA Start: 01-26-2019 Insertion, vascular access port PORT,POWER 8FR FDA Start: 01-26-2019 Insertion, vascular access port PORT,POWER 8FR FDA Start: 01-26-2019 Insertion, vascular access port PORT,POWER 8FR FDA Start: 01-26-2019 Insertion, vascular access port PORT,POWER 8FR FDA Start: 01-26-2019 X-Fix Pin, 2.7 X 80mm, 9mm Thread Case [id number] Start: 11-07-2021 Comment on above: Description: Convert ed from [facility]. Please see archived information for full log information. Peg Kit, Gastro, Standard, Push, 20 Fr, W/Xylocaine Ampule Case [id number] Start: 11-07-2021 Comment on above: Description: Convert ed from [facility]. Please see archived information for full log information. Clamp, Cmf X-Fix , Connection Bar Cmf 3.2mm Pin Case [id number] Start: 11-07-2021 Comment on above: Description: Convert ed from [facility]. Please see archived information for full log information. Device, Anasotmo tic 3.0mm Case [id number] Start: 11-07-2021 Comment on above: Description: Convert ed from [facility]. Please see archived information for full log information. Probe, Flow Dopp remigio Farris Case [id number] Start: 11-07-2021 Comment on above: Description: Convert ed from [facility]. Please see archived information for full log information. Probe, Flow Dopp ler Brenton Case [id number] Start: 11-10-2021 Comment on above: Description: Convert ed from [facility]. Please see archived information for full log information. Screw, Lock 2.0 X 11 Maxdrv Ti Alloy Case [id number] Start: 11-07-2021 Comment on above: Description: Convert ed from [facility]. Please see archived information for full log information. Drill, Klsm 2.2 Case [id number] Start: 11-07-2021 Comment on above: Description: Convert ed from [facility]. Please see archived information for full log information. Plate Level One Cmf Case [id number] Start: 11-07-2021 Comment on above: Description: Convert ed from [facility]. Please see archived information for full log information. Additional Information:Plateper oracle jdr 11/08/2021 External Fixator Klever Case [id number] Start: 11-07-2021 Comment on above: Description: Convert ed from [facility]. Please see archived information for full log information. Additional Information:External Fixator Rodper range oracle jdr 11/08/2021 Screw, Lock 2.0 X 17 Maxdrv Ti Alloy Case [id number] Start: 11-07-2021 Comment on above: Description: Convert ed from [facility]. Please see archived information for full log information. Screw, Lock 2.0 X 13 Maxdrv Ti Alloy Case [id number] Start: 11-07-2021 Comment on above: Description: Convert ed from [facility]. Please see archived information for full log information. Screw, Lock 2.0 X 15 Maxdrv Ti Alloy Case [id number] Start: 11-07-2021 Comment on above: Description: Convert ed from [facility]. Please see archived information for full log information. Device, Anasotmo tic 2.5mm Case [id number] Start: 11-07-2021 Comment on above: Description: Convert ed from [facility]. Please see archived information for full log information. Probe, Flow Dopp ler Brenton Case [id number] Start: 11-07-2021 Comment on above: Description: Convert ed from [facility]. Please see archived information for full log information. Goals Date Patient Goal Desired Activity /State Functional Status Date Assessment Result Facility 09-15-2024 Functional status Ambulates [facility] Work Phone: 01-25-2022 Functional status Ambulates;Up ad yaneth [facility] Work Phone: 01-23-2022 Functional status Ambulates;Up ad yaneth [facility] Work Phone: Bladder: fully continent [facility] NEGATED: Highlighted row Functional performance Functional status health issues are not documented Disease FE-Vsajgnldojyddp-Wd min [place] [address] Work Phone: Mental Status Date Assessment Result Facility 10-21-2024 Cognitive function Level Of Cons ciousness Sedated [facility] Work Phone: 10-21-2024 Cognitive function Voice/Name [facility] Work Phone: 09-15-2024 Cognitive function Awake;Alert;A ppropriate ;Follows Commands [facility] Work Phone: 09-03-2023 Cognitive function Level Of Cons ciousness Follows Commands;Drowsy [facility] Work Phone: 09-03-2023 Cognitive function Voice/Name [facility] Work Phone: 01-25-2022 Cognitive function Voice/Name [facility] Work Phone: 01-23-2022 Cognitive function Voice/Name [facility] Work Phone: 11-09-2021 Cognitive functi ons [id number] [facility] 04-30-2019 Cognitive function Mood Descript ion Appropriate [facility] Work Phone: NEGATED: Highlighted row Cognitive function [Interpretation] Cognitive status health issues are not documented Disease YO-Mottjsczlhenoj-Q dmin [place] [address] Work Phone: Clinical Notes 05-24-2019 to 03-14-2025 Assessment & Plan Note - Rachel Brooks MD - 03/14/2025 3:32 PM EDTAssessment & Plan Note - Rachel Brooks MD - 03/14/2025 3:32 PM EDTRachel Brooks MD - 03/01/2025 8:30 AM EDT Note Date & Type Note Facility 03-14-2025 Evaluation + Plan note Associated Problem(s): Open wound of neck This has been stable for several years, no change He has been seen at wound center and I referred him back at last visit [facility] Work Phone: 03-14-2025 Evaluation + Plan note Associated Problem(s): 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 No evidence of disease today [facility] Work Phone: 03-14-2025 Evaluation + Plan note Associated Problem(s): Cancer of oral cavity (Multi) No evidence of disease on exam or endoscopy today Follow up in 6 months with new H&N attending since I am leaving, discussed transition and offered encouragement [facility] Work Phone: 03-14-2025 Miscellaneous Notes Associated Problem(s): Open wound of neck This has been stable for several years, no change He has been seen at wound center and I referred him back at last visit Associated Problem(s): 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 No evidence of disease today Associated Problem(s): Cancer of oral cavity (Multi) No evidence of disease on exam or endoscopy today Follow up in 6 months with new H&N attending since I am leaving, discussed transition and offered encouragement Associated Problem(s): Oropharyngeal dysphagia Chronic, moderate to severe He is requiring repeated dilations every 6 months Discussed total laryngectomy (as described above) but has severe wound healing issues and Continue current diet and modifications Weight stable Associated Problem(s): Hypothyroidism Chronic, acquired Adverse effect of radiation Continue daily synthroid Associated Problem(s): Tracheostomy dependence (Multi) Discussed that his airway is too restricted to consider trach removal Continue trach care Uses finger to cap but is asking for new speaking valve Will order from [place] 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 dysphagia - we had a discussion today about functional laryngectomy - he would be trading his trach care for laryngectomy care which is easier and could have a free flap reconstruction of his throat to open this and perhaps allow him to swallow things up to pasta type foods. His swallowing would never be normal and there is no guarantee. We reviewed the risks, benefits and alternatives. He is going to consider this. Associated Problem(s): Sensorineural hearing loss (SNHL) of both ears Does well with bilateral BRENNAN Bilateral SNHL - Chemotherapy is a contributing factor documented in this encounter [facility] Work Phone: 03-03-2025 Procedure note [facility] 03-01-2025 Evaluation + Plan note Associated Problem(s): Oropharyngeal dysphagia Chronic, moderate to severe He is requiring repeated dilations every 6 months Discussed total laryngectomy (as described above) but has severe wound healing issues and Continue current diet and modifications Weight stable [facility] Work Phone: 03-01-2025 Evaluation + Plan note Associated Problem(s): Hypothyroidism Chronic, acquired Adverse effect of radiation Continue daily synthroid [facility] Work Phone: 03-01-2025 Evaluation + Plan note Associated Problem(s): Tracheostomy dependence (Multi) Discussed that his airway is too restricted to consider trach removal Continue trach care Uses finger to cap but is asking for new speaking valve Will order from [place] 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 dysphagia - we had a discussion today about functional laryngectomy - he would be trading his trach care for laryngectomy care which is easier and could have a free flap reconstruction of his throat to open this and perhaps allow him to swallow things up to pasta type foods. His swallowing would never be normal and there is no guarantee. We reviewed the risks, benefits and alternatives. He is going to consider this. [facility] Work Phone: 03-01-2025 Evaluation + Plan note Associated Problem(s): Sensorineural hearing loss (SNHL) of both ears Does well with bilateral BRENNAN Bilateral SNHL - Chemotherapy is a contributing factor [facility] Work Phone: 03-01-2025 History of Present illness Narrative Cancer follow up HPI: My Jama is a 64 y.o. male following up with me today for his F2U1wN2 oral cavity SCCa with chin involvement. Last seen 09/15. He has a history of G6O3jO1 oral cavity SCCa with chin involvement s/p triple, trach, PEG, composite resection, excision of skin and soft tissue, segmental mandibulectomy, right neck dissection, left neck exploration for vessels, reconstruction with left ALT and left fibular free flap on 11/07/21. Patient completed adjuvant chemoradiation on 02/06/22. He will be getting electric shock therapy for his hands. Here today with his daughter and grandson. He has lost his PMV and is asking for another one. Understands that he needs the trach. He can't tolerate capping. He is being see by Dr. Gallagher Friend, GI. He has been needing serial dilations every 6 months which do help somewhat. Maintaining his weight. Dysphagia is stable. Xerostomia moderate. No new concerns today. History: Dx1: [id number] left neck (unknown primary) 2018 Dx2: [id number] SCCa of the oral cavity 2020 Dx3: Dysphagia (chronic but worsening) 202204/28/18: +odynophagia, EGD +distal esophagitis, biopsies +reflux Late 11/11: First noticed left neck mass 12/15/18: 1st evaluation, for enlarging left neck mass 12/17/18: CT neck and chest with left pathologic lymphadenopathy measuring 1.8x1.8x2.9cm and second lymph node measuring 1.2x1.6cm. CT chest with small scattered pulmonary nodules largest RUL 5mm, recommend CT chest in 1yr 12/22/18: US guided FNA of the left neck mass +SCCa with extensive necrosis, P16 negative. 12/31/18: Seen by medical oncologist, recommended ENT & PET scan 01/02/19: OSH ENT consult with left fixed lymphadenopathy, small cystic lesion noted on uvula, negative laryngoscopy 01/05/19: PET scan with 2 hypermetabolic areas in the left neck (SUV 8.6 max), and increased FDG avidity in the left pharynx (SUV 3.4) measures 1.9cm 01/30/19: Triple endoscopy with tonsillectomy and uvulectomy removal 02/09/19: Started chemoradiation therapy 03/23/19: Last chemotherapy 03/25/19: Completed chemoradiation therapy 09/12: Loose anterior mandibular teeth/dental extraction 09/12: CT neck w/contrast enhancing mass involving the anterior oral cavity & symphysis with bone involvement, no lymphadenopathy 09/12: Oral cavity biopsy at [facility] +SCCa 10/14: PET FDG avid oral cavity mass w/bone involvement SUV12, no lymphadenopathy or distant metastasis 11/07/21: S/p triple, trach, PEG, composite resection, excision of skin and soft tissue, segmental mandibulectomy, right neck dissection, left neck exploration for vessels, reconstruction with left ALT and left fibular free flap. Path + 6.5cm SCCa, 12/11 lymph nodes + metastasis. 11/10/21: S/p left neck exploration and revision of ALT flap (release of arterial kinking) 12/12: TB recommends radiation +/- chemotherapy 11/29/21: Trach changed to #4 cuffless & capped, +cellulitis of chin and fibula on bactrim 12/03/21: Decannulated, decreased erythema 12/05/21: ED visit for SOB, 4-0 trach replaced 12/12: Started chemoradiation therapy 12/18: Trach open #4 12/29/21: Urgent add on - trach upsized to a #6 distal XLT 02/06/22: Completed chemoradiation 04/02/22: Left neck wound increased in size. Cultures obtained- + MRSA - recommend bactroban 05/14: Seeing wound care for stable midline neck wound - doing serial debridements 06/14: Integra placement without take 02/12: Wound continues to get smaller, XLT trach capped during the day 03/15: Trach change 09/14: Per patient recent imaging CT scans negative for cancer recurrence, failed swallow test 09/14: CXR negative 09/03/23: Esophagoscopy and dilation by Dr. Akhtar 02/13: Esoph & dilation, botox by Dr. Akhtar 08/16: Esoph and dilation, botox by Dr. Akhtar- only lasted 1 month 08/31/24: Persistent neck wound stable - no change attendant the last 2 yrs 10/17: Dilation by Dr. Akhtar ROS: Review of Systems Constitutional: Negative for appetite change, chills, fatigue, fever and unexpected weight change. HENT: Positive for trouble swallowing. Negative for dental problem, drooling, ear pain, facial swelling, mouth sores, sore throat, tinnitus and voice change. Respiratory: Negative for cough, shortness of breath and stridor. Gastrointestinal: Negative for nausea and vomiting. Musculoskeletal: Negative for neck pain. Hematological: Negative for adenopathy. All other systems reviewed and are negative. PE: ENT Physical Exam Constitutional Appearance: patient appears well-developed and well-groomed, patient is cooperative; Communication/Voice: Communication comments: uses finger to cap w/trach in place, some articulation difficulties but understandable Head and Face Appearance: head appears normal; Salivary: glands normal; Head and Face comments: Face reconstruction with chin skin paddle well integrated, +radiation changes, extensive head/neck surgery, occasional drooling Ear Hearing: impaired to conversational voice; Auricles: right auricle normal; left auricle normal; Ear Canals: right ear canal normal; left ear canal normal; Tympanic Membranes: right tympanic membrane normal; left tympanic membrane normal; Ear comments: Bilateral BRENNAN Nose External Nose: nares patent bilaterally; external nose normal; Internal Nose: nasal mucosa normal; septum normal; Oral Cavity/Oropharynx Lips: normal; Gums: gingiva normal; Tongue: normal; Oral mucosa: mucous membranes dry; OC/OP comments: +tongue edema (chronic radiation edema, tongue tethered to the anterior FOM reconstruction), no masses within the oral cavity, well healed reconstruction along FOM, s/p uvulectomy Neck Neck: scars present; tracheostomy noted; tracheostomy tube present; Tracheostomy tube size: 6 mm; Tracheostomy tube type: shiley XLT; Neck comments: Superficial left neck wound 3cm (Stable) dry today Respiratory Inspection: breathing unlabored; Cardiovascular Inspection: extremities are warm and well perfused; Lymphatic Palpation: no cervical adenopathy noted; Neurovestibular Mental Status: alert and oriented; Psychiatric: mood normal; affect is appropriate; Procedures PROCEDURE NOTE: Recommended flexible nasopharyngoscopy & laryngoscopy. Risks, benefits, personnel and alternatives were explained. The patient wished to proceed. S/he was re-identified. PROCEDURE: Flexible nasopharyngoscopy and laryngoscopy PREOPERATIVE DIAGNOSIS: oral cavity cancer surveillance POSTOPERATIVE DIAGNOSIS: Same as above, retroflexed epiglottis and radiation edema which remains severe, diff with visualization but once into oropharynx then exam as described, airway remains partially obstructed, trach in place INDICATIONS: Inability to tolerate mirror exam ANESTHESIA: 4% lidocaine and 0.5% phenylephrine PROCEDURE: With the patient sitting upright topical anesthesia and vasoconstriction was applied with spray to the right side(s) of the nose. After waiting an appropriate period of time for anesthesia/vasoconstriction to become effective, a flexible laryngoscope was passed through the right side(s) of the nose. Nasopharynx, oropharynx, hypopharynx and larynx were examined. FINDINGS: The nasopharynx was normal without any lesions or masses visualized. However upon entrance into the oropharynx there is extensive edema with a retroflexed epiglottis and poor patency. No masses or lesions were visualized at the base of tongue. It is difficult to visualize the supraglottis except the epiglottis because of how retroflexed it is making it hard to get the scope past but once it is we had to use the patient vocalizing to be able to identify the aryepiglottic folds, FVC and TVC. No masses or lesions but very tight airway. +vocal fold mobility. The patient's airway is severely restricted by the retroflexed epiglottis and radiation edema. Patient tolerated the procedure well, and there were no complications. 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 Current Assessment & Plan No evidence of disease today Hypothyroidism Current Assessment & Plan Chronic, acquired Adverse effect of radiation Continue daily synthroid Oropharyngeal dysphagia Current Assessment & Plan Chronic, moderate to severe He is requiring repeated dilations every 6 months Discussed total laryngectomy (as described above) but has severe wound healing issues and Continue current diet and modifications Weight stable Sensorineural hearing loss (SNHL) of both ears - Primary Current Assessment & Plan Does well with bilateral BR[place] Bilateral SNHL - Chemotherapy is a contributing factor Tracheostomy dependence (Multi) Current Assessment & Plan Discussed that his airway is too restricted to consider trach removal Continue trach care Uses finger to cap but is asking for new speaking valve Will order from [place] 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 dysphagia - we had a discussion today about functional laryngectomy - he would be trading his trach care for laryngectomy care which is easier and could have a free flap reconstruction of his throat to open this and perhaps allow him to swallow things up to pasta type foods. His swallowing would never be normal and there is no guarantee. We reviewed the risks, benefits and alternatives. He is going to consider this. Open wound of neck Current Assessment & Plan This has been stable for several years, no change He has been seen at wound center and I referred him back at last visit Rachel Brooks MD Head & Neck Surgical Oncology & Reconstruction Department of Otolaryngology - Head and Neck Surgery By signing my name below, I, Kuldeep Braden, attest that this documentation has been prepared under the direction and in the presence of Dr. Rachel Brooks MD. All medical record entries made by the Scribe were at my direction and personally dictated by me, Dr. Rachel Brooks. I have reviewed the chart and agree that the record accurately reflects my personal performance of the history, physical exam, discussion and plan. documented in this encounter [facility] Work Phone: 03-01-2025 Instructions Koki Schneider RN - 03/01/2025 8:[address] Brooks evaluated you today. Your care plan is outlined below: -- Follow up with Dr. Kim Jha in May. Call [phone] to schedule this appointment. General appointment line please call [phone] For general questions or scheduling issues please call [phone] option #2 For medical questions or surgery scheduling please call [phone] on Mondays, Wednesdays and or [phone] on Tuesdays and Fridays. Please be sure to leave a voice mail or your call will not be able to be returned. Dr. Brooks makes every effort to run on time for your appointments. Therefore, if you are more than 30 minutes late for your appointment, unrelated to a scan or another appointment such as chemotherapy or radiation, your appointment will need to be rescheduled to another day. We appreciate your understanding. documented in this encounter [facility] Work Phone: 01-05-2025 Evaluation note Diagnosis Onset Date Resolution Head and neck cancer chronic Apri l 2024 10:58am Lung nodules chronic January 05, 2025 10:58am Regional lymph node metastasis present chronic January 05, 2 025 10:58am History of head and neck cancer acute February 02, 2025 9 :28am Esophageal dysphagia chronic February 11, 2025 7:56am [facility] Work Phone: 1(223) 439-286304-09-2025 Radiology Diagnostic study note [facility] Imaging Services [address] [place] [address] Chest WITH Contrast MR#: [id number] Acct: [id number] Name: MY JAMA Rep #: [id number] : 1960 M 64 From: Laney Centeno MD PCP: Sadie Santiago NP-C Status: REG C LI Study:Chest WITH Contrast Date of Exam: 12/29/24 Exam# [id number] Ordering Dr: Quincy Simpson MD PROCEDURE: CHEST WITH CONTRAST 12/29/2024 REASON FOR EXAM: F/U RUL NODULE WITH NEGATIVE BX TECHNIQUE: Axial chest CT with intravenous contrast. Coronal and Sagittal reconstruction series were provided. CONTRAST: Isovue 370 VOLUME: 100 ML 18 gauge IV One or more dose reduction techniques were used (e.g., Automated exposure control, adjustment of the mA and/or kV according to patient size, use of iterative reconstruction technique). RADIATION DOSE SUMMARY: CTDlvol: 196 mGy DLP: 215.9 mGycm COMPARISON: None available FINDINGS: Hardware: Tracheostomy with tip terminating above the devika. Lymph nodes: No lymphadenopathy. Heart and Vasculature: The heart is normal in size. The great vessels are normal in size and caliber. No pericardial effusion. Lungs and Airways: Central airways are patent. Tiny less than 2 mm pulmonary nodules within the right upper lobe. Mild scarring within the bilateral apices. Mild upper lobe predominant centrilobular emphysematous changes. Streaky opacities in the bilateral lung bases, likely scarring or subsegmental atelectasis. Pleura: No pleural effusion or pneumothorax. Upper Abdomen: Partially visualized upper abdomen demonstrates no acute abnormality. Bones: No aggressive osseous lesions. No acute fractures. CT/Chest WITH Contrast IMPRESSION: 1. Mild upper lobe predominant centrilobular emphysematous changes within bilateral lungs. 2. No acute pathology within the chest. 3. Tiny less than 2 mm pulmonary nodule within the right upper lobe. Reading Location: [facility] CC: BOOTH CLEANER-C Sadie Santiago; Dr. Quincy Simpson MD ~ Wood Router Hand: Signed [facility]03-28-2025 Procedure note [facility] Speech Pathology [address] [place] [address] Modified Barium Swallow Study MR#: [id number] Acct: [id number] Name: MY JAMA Rep #:[id number] : 1960 64 From: Latosha Verma, [facility]-ADVANCED PRACTICE REGISTERED NURSE Verbal discussion with patient about POC 12/18/2024: ADVANCED PRACTICE REGISTERED NURSE attempted to call the patient 12/17/[address] POC after interpretation ofMBSS, but pt had phone difficulties. Pt came into the office 12/18/2024 for this discussion. Unfortunately, the patient is not a candidate for participation in [place] [facility]ysphagia Therapy Program (MDTP) following results ofMBSS revealing silent aspiration. Pt also has contraindications including severe fibrosis, presenceof trach, and esophageal dysphagia. ADVANCED PRACTICE REGISTERED NURSE recommended continuing with therapy 3-4X/week, X3-5 weeks for implementation of oropharyngeal strengthening,jaw ROM, and neck ROM exercises in junction w/ myofascial release. Pt is unable to attend therapy this coming Saturday, and the ADVANCED PRACTICE REGISTERED NURSE is out of the office this upcoming Saturday. Myofascial release is best completed in a more intensive therapy model (ADVANCED PRACTICE REGISTERED NURSE recommends 3-4X/week, X3-5 weeks) to be effective. Pt requested resuming dysphagia therapy after ADVANCED PRACTICE REGISTERED NURSE submits re-evaluation as he wouldonly be able to come to therapy for 3 consecutive days prior to insurance end date. 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 Determine candidacy for participation in MDTP. Medical History: Oncology PMH: The pt is a 64-year-old male diagnosed with clinical stage NOREEN (cTx cN2b M0) p16 negative SCC of unknown primary with left neck adenopathy in level 2-[address] neck and chest (12/17/2018), ultrasound-guided FNA of the left neck mass (12/22/2018), PET scan (01/05/2019), triple endoscopy with targeted left tonsillectomy (01/30/2019). From 02/10/2019 ? 03/25/2019 he received definitive chemoradiation therapy. 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 11/07/2021: PEG tube placement, tracheostomy, composite resection of oral cavity, excision of skin and soft tissue, segmental mandibulectomy, right selective neck dissection and left neck exploration for vessels. Reconstruction was thigh free flap and had complex neck closure with split thickness skin graft.Trach was removed following surgery on 12/05/2021 with the trach re-inserted due to difficulty breathing when lying flat. Dysphagia History: Pt has followed with OP ST during and intermittently after radiation treatment to manage severe oropharyngeal dysphagia. PEG tube was removed summer. He sustains himself fully on oral diet of liquidized purees / thin liquids. Pt has participated in 7 MBSS (06/26/2019, 03/30/2020, 01/08/2022, 04/13/2022, 06/15/2022, 08/05/2023, 06/24/2024). Most recent MBSS 06/24/2024 revealed severe oropharyngeal dysphagia and recommended liquidized purees / thin liquids w/ use of recommendedmoist puree textures / thin liquids with frequent oral care and the following strategies: Cough allyn-swallow aftereach sip, Small Bites, Multiple Swallows, Alternate bites/solids and sips/liquids, Sitting upright and Remain sitting upright for 30 minutes after POintake. Hx of esophageal dysphagiamanaged by passementerie worker, Dr. Akhtar, s/p EGD w/ botox injection and esophageal dilation of esophageal stenosis 02/03/2024. He participated in OP ST for myofascial release in junction with oropharyngeal strengthening and neck ROM exercises from 08/2023-10/2023 with improvements in swallowing, including advancing diet from purees to foods with soft, solid lumps (soups with small lumps), and improved neck ROM (L head rotation improved from 16 degrees to 37 degrees, R head rotation improved from 19 degrees to 35 degrees). He returned to OP ST 03/17/2024 for continued dysphagia therapy for myofascial release in junction w/ neck ROM exercises due to pt reporting sensation of decreased neck ROMand increased stiffness of neck.He has participated in 23 dysphagia treatment sessions during this POC. He returned for dysphagia treatment 12/18/2024 to continue oropharyngeal strengthening, neck ROM, and jaw ROM exercise in junction w/ myofascial release and to discuss candidacy for participation in the [place] Dysphagia Therapy Program (MDTP), an evidence, based, intensive, systematic exercise approach to dysphagia treatment. The patient was interested in the program, so ADVANCED PRACTICE REGISTERED NURSE recommended this MBSS as re-evaluation to determine candidacy for participation in MBSS. Current Diet Ordered: Liquidized purees (some small lumps per pt) / Thin Dentition: Edentulous Mental Status: WNL Respiratory Status: Oxygenating on Room Air (Trach) Penetration-Aspiration Scale Penetration-Aspiration Scale: OBJECTIVE ASSESSMENT OF SWALLOW FUNCTION (QUANTITATIVE ? PER TRIAL): PENETRATION / ASPIRATION SCALE (SENIOR): 1 = does not enter airway 2 = enters airway/above vocal folds/ejected 3 = enters airway/above vocal folds/not ejected 4 = enters airway/contacts vocal folds/ejected 5 = enters airway/contacts vocal folds/not ejected 6 = enters airway/below vocal folds/ejected 7 = enters airway/below vocal folds/not ejected despite effort 8 = enters airway/below vocal folds/no effort VIDEOFLOROSCOPIC SCALE SCORE (SENIOR): Grade I = aspiration of material that has penetrated into the laryngeal vestibule, intact cough reflex Grade II = aspiration < 10 % of the bolus, intact cough reflex Grade III = aspiration of < 10 % of the bolus, reduced cough reflex or aspiration of > 10 % of the bolus, intact cough reflex Grade IV = aspiration of > 10 % of the bolus, reduced cough reflex Penetration-Aspiration Scale Score Thin Liquid via teaspoon: Result: 3= enters airways/above vocal folds/not ejected Thin Liquid via teaspoon Trial 2: Result: 3= enters airways/above vocal folds/not ejected Thin Liquid 10mL: Result: 3= enters airways/above vocal folds/not ejected Thin Liquid 10mL Trial 2: Result: 8= enters airway/below vocal folds/no effort Oppelo Thick Liquid via teaspoon: Result: 3= enters airways/above vocal folds/not ejected Oppelo Thick Liquid via teaspoon Trial 2: Result: 3= enters airways/above vocal folds/not ejected Mildly Thick Liquid 10mL: Result: 3= enters airways/above vocal folds/not ejected Mildly Thick Liquid 10mL Trial 2: Result: 3= enters airways/above vocal folds/not ejected Pudding via teaspoon: Result: 3= enters airways/above vocal folds/not ejected Pudding via teaspoon Trial 2: Result: 3= enters airways/above vocal folds/not ejected Comment: Unable to provide pudding via 10mL (protocol for MDTP evaluation) due to limitedpharyngeal clearance of second bite of pudding, which pt somewhat cleared w/ thin water wash after the study Oral Phase Labial Seal: Escape beyond mid-chin Tongue Control During Bolus Hold: Posterior escape of greater than half of bolus Bolus Transport/Lingual Motion: Delayed initiation of tongue motion Oral Residue: Residue collection on oral structures Pharyngeal Phase Initiation of Pharyngeal Swallow: Bolus head in pyriforms Soft Palate Elevation: Escape to nasal cavity (pudding) Laryngeal Elevation: Partial superior movement thyroid cart/partial apprx aryt- epig petiole Anterior Hyoid Excursion: No anterior movement (very minimal) Epiglottic Movement: No inversion Laryngeal Vestibule Closure at Height of Swallow: Incomplete; narrow column of air/contrast in laryngeal vestibule Pharyngeal Stripping Wave: Present - diminished (minimal) Pharyngoesophageal Segment Opening: Minimal distension and minimal duration; marked obstruction of flow Tongue Base Retraction: Wide column of contrast between tongue base & post. pharyngeal wall Pharyngeal Residue: Majority of contrast within or on pharyngeal structures Esophageal Phase Esophageal Clearance: Esophageal retention w/ retrograde flow through pharyngoesophageal seg (traceretention in UES, complete clearance during esophageal screens (honey and sequential thin 2)) Diagnosis/Impression Diagnosis: Severe oropharyngeal dysphagia R13.12; Esophageal dysphagia R13.12 Impression: The oral phase is primarily marked by... -Delayed initiation of tongue motion for AP transport. -Decreased bolus control w/ loss of >1/2 the bolus to the pyriforms prior to swallow onset. -Did not assess mastication as he is not appropriate for solid trials due to inability to fully close jaw s/p FOM and jaw reconstruction, as well as deficitsin pharyngeal motility, edentulous status,and bolus control. The pharyngeal phase is primarily marked by... -Severely decreased tongue base retraction, pharyngeal stripping wave (minimal movement), and UES opening/duration resulting in moderate-severe pharyngeal residues, most notable w/ pudding trial. Thin and mildly thick liquids required 4-7 swallows to clear (trace residues remaining). -Decreased airway closure due to no anterior hyoid excursion, no epiglottic inversion, decreased laryngeal elevation. -Continued consistent laryngeal penetration across all consistencies that does not fully eject after the swallow. Trace silent aspiration of thin liquids via 10mL. The esophageal phase is marked by... -Retention of pudding in the upper and middle esophagus w/ retrograde flow through the UES, quick re-swallow which cleared pudding back through UES. Recommendations Diet: Puree Textures (Liquidized Purees [ok for small, minced lumps as tolerated]) and Thin Liquids Comment: Frequent oral care Intermittent cough and re-swallow Compensatory Strategies: Small Sips, Slow Rate, Multiple Swallows, Alternate bites/solids and sips/liquids, Sitting upright and Remain sitting upright for 30minutes after PO intake Recommend Repeat Modified Barium Swallow: Yes Comment: Repeat MBSS in 6-12 months to monitor swallow function as the patient is at riskfor worsening dysphagia and aspiration risk s/p chemoradiation treatment. Need for Skilled Speech Therapy Services: Yes Comment: Given presence of silent aspiration (absence of a clinical indicator of aspiration) observed duringthis MBSS, presence of tracheostomy, hx of esophageal dysmotility, and significant surgical reconstruction from hx of head and neck cancer, the patient is unfortunately not a candidate for participation in MDTP. Will resume dysphagia treatment w/ POC to include oropharyngeal strengthening, jaw ROM,and neck ROM exercises in junction w/ myofascial release, as well as training in strategies to facilitate safe po intake. Education Completed: 1. Described result of evaluation., 2. Pt understands evaluation & agrees with goals and treatment plan. and 4. Family/caregivers understand evaluation & agree w/ goals & tx plan. (Called daughter, Rox, w/ results of evaluation.) Status Active ST Patient: Active Contact Information [facility] Speech Therapy:: Latosha Boyer M.A. CCC-ADVANCED PRACTICE REGISTERED NURSE? Speech-Language Pathologist?? [facility] [address] [place] [address]? [email or web address]?? [phone] 12/17/24 Anjelica Boogie CCC-ADVANCED PRACTICE REGISTERED NURSE> Date/Time Latosha Boyer M.A., CCC-ADVANCED PRACTICE REGISTERED NURSE Co-Signature Required for all Medicare patients Date/Time Co-Signature CC: ~ [facility]01-29-2025 Evaluation note* Diagnosis Onset Date Resolution Status Admit Date Esophageal dysphagia chronic Aquiles glory 2024 5:27am Head and neck cancer chronic Apri l 2024 10:58am Lung nodules chronic January 05, 2025 10:58am Regional lymph node metastasis present chronic January 05, 2 025 10:58am [facility] Work Phone: 1(648) 127-108301-29-2025 [facility] Medical Records Department [address] [place] [address] History Physical Exam 10/21/24 0708 MR#: [id number] Acct: [id number] Name: MY JAMA Rep #: [id number] : 1960 64 From: Elliott Friend DO PCP: YARI Santillan Status:REG IAC Location: [place] [address] HPI - General General Date of Admission: 10/21/24 Date of Service: 10/21/24 Chief Complaint: dysphagia HPI Narrative MY JAMA, is a 64 M who presents for esophageal dilation C 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 Underwent radiation with concurrent carboplatin for head/neck cancer. At follow up it was noted he has dysphagia. ? Modified Barium 04.13.22 moderate oropharyngeal dysphagia, mild esophageal dysphasia. ? Modified Barium 06.15. moderate- severe oropharyngeal phase dysphagia, puree texture. ? Modified Barium 08.05.23 severe oropharyngeal phase dysphagia, recommend puree texture. High risk for aspiration *BGI established 08.30.23 he has had a tracheostomy for the last two years. He has been having difficulty swallowing foods with history as above. Daughter is concerned regarding frequent pneumonia during the winter months. EGD 09.03.23 Expiratory glottic narrowing was found.The nasopharynx and oropharynx are abnormal. Surgically absent larynx. Esophageal mucosal changes suggestive of eosinophilic esophagitis. Benign-appearing esophageal stenosis. Dilated. Small hiatal hernia. No gross lesions in the entire stomach. No gross lesions in the first portion of the duodenum. Biopsies were taken with a cold forceps for evaluation of eosinophilic esophagitis. OV 02.11.24 pt reports continued difficulty swallowing. EGD 02.20.24 The nasopharynx and oropharynx are abnormal. Benign-appearing esophageal stenosis. Dilated. Injected with botulinum toxin. No gross lesions in the entire stomach. No gross lesions in the duodenal bulb. No specimens collected. Modified Barium Swallow 06.24.24 Severe oropharyngeal dysphagia OV 08.14.24 pt reports continued difficulty swallowing, denies other GI symptoms of concern at this time. 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 Restaging did not suggest systemic disease. October 2021 he underwent radical surgery. Received adjuvant combined modality therapy with radiation and weekly carboplatin chemosensitization November???January. 11/07/2021: PEG tube placement, tracheostomy, composite resection of oral cavity, excision of skin and soft tissue, segmental mandibulectomy, right selective neck dissection and left neck exploration for vessels. Reconstruction was thigh free flap and had complex neck closure with split thickness skin graft. Trach was removed following surgery on 12/05/2021 with the trach re-inserted due to difficulty breathing when lying flat. Pt has followed with OP ST during and after radiation treatment. Most recent MBSS 06/15/22 recommended moist puree textures / thin liquids with strict aspiration precautions and GI consult for dilation, very narrow and decreased opening/duration of upper esophageal sphincter. We will repeat his upper endoscopy to evaluate his upper GI tract. He had a severe at the level of the cricopharyngeus muscle involving the upper esophageal sphincter into the proximal esophagus with dilation up to 42 Frisian savory dilator. He did well up until a month ago where he had a worsening swallowing. He will undergo repeat upper endoscopy with Botox injection and dilation of the esophagus. 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 Hypertension Mass of left side of neck Difficulty swallowing Home Medications ???Medication ???Instructions ???Recorded ???Last Taken ???Type albuterol sulfate 1.25 mg/3 mL 1.25 mg (3 mL) inhalation Q4H PRN 12/10/21 Unknown Rx solution for nebulization bronchospasm #90 mL amlodipine 5 mg tablet 5 mg PO DAILY bp 01/23/22 09/03/23 History fluticasone propionate 50 1 spray intranasal DAILY PRN 01/23/22 Unknown History mcg/actuation nasal health maintenance spray,suspension sodium chloride 1,000 mg soluble 3 g PO BID #60 tabs 01/25/22 Unknown Rx tablet nyst (more content not included)...[facility]12-16-2024 Evaluation note* Diagnosis Onset Date Resolution Status Admit Date Head and neck cancer chronic Dece mber 2023 1:32pm Lung nodules chronic August 1:32pm Regional lymph node metastasis present chronic August 1:32pm Right upper lobe pulmonary nodule acute September 15, 2 024 8:44am Head and neck cancer chronic Aquiles glory 2024 11:59am Lung nodules chronic September 28, 2024 11:59am Regional lymph node metastasis present chronic September 28, 2024 11:59am Esophageal dysphagia chronic Aquiles glory 2024 5:27am [facility] Work Phone: 1(703) 828-303212-09-2024 Evaluation + Plan note* Assessment & Plan Note - Rachel Brooks MD - 08/31/2024 9:59 AM ESTAssociated Problem(s): Open wound of neck Referral back to wound center [facility] Work Phone: 1(704) 400-720312-09-2024 Evaluation + Plan note* Assessment & Plan Note - Rachel Brooks MD - 08/31/2024 9:59 AM ESTAssociated Problem(s): 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) No evidence of disease today [facility] Work Phone: 1(300) 490-861012-09-2024 Evaluation + Plan note* Assessment & Plan Note - Rachel Brooks MD - 08/31/2024 9:59 AM ESTAssociated Problem(s): Cancer of oral cavity (Multi) No evidence of disease on exam or endoscopy today Follow up in 6 months [facility] Work Phone: [phone]) 613-872912-09-2024 Evaluation + Plan note* Assessment & Plan Note - Rachel Brooks MD - 08/31/2024 9:59 AM ESTAssociated Problem(s): Oropharyngeal dysphagia Chronic, moderate to severe Worse - now not responding to dilations Had dilation & botox 08/16 and again planned 10/17 but trying to sooner Discussed Dr. 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 Carrero and consideration for other options Discussed total laryngectomy but has severe wound healing issues and he is not excited about this Continue current diet and modifications Weight stable * Assessment & Plan Note - Rachel Brooks MD - 08/31/2024 9:58 AM EST Associated Problem(s): Hypothyroidism Chronic, acquired Adverse effect of radiation Continue daily synthroid * Assessment & Plan Note - Rachel Brooks MD - 08/31/2024 9:58 AM EST Associated Problem(s): Tracheostomy dependence (Multi) Discussed that his airway is too restricted to consider trach removal Continue trach care Uses finger to cap when speaking has difficulty even with speaking valve * Assessment & Plan Note - Rachel Brooks MD - 08/31/2024 9:57 AM EST Associated Problem(s): Sensorineural hearing loss (SNHL) of both ears Good response to BRENNAN - wearing them today and doing well Bilateral SNHL Chemotherapy is a contributing factor documented [facility] Work Phone: 1(996) 978-799912-09-2024 Evaluation + Plan note* Assessment & Plan Note - Rachel Brooks MD - 08/31/2024 9:58 AM ESTAssociated Problem(s): Hypothyroidism Chronic, acquired Adverse effect of radiation Continue daily synthroid [facility] Work Phone: [phone]) [phone] Evaluation + Plan note* Assessment & Plan Note - Rachel Brooks MD - 08/31/2024 9:58 AM ESTAssociated Problem(s): Tracheostomy dependence (Multi) Discussed that his airway is too restricted to consider trach removal Continue trach care Uses finger to cap when speaking has difficulty even with speaking valve [facility] Work Phone: [phone]) 297-509612-09-2024 Evaluation + Plan note* Assessment & Plan Note - Rachel Brooks MD - 08/31/2024 9:57 AM ESTAssociated Problem(s): Sensorineural hearing loss (SNHL) of both ears Good response to BRENNAN - wearing them today and doing well Bilateral SNHL Chemotherapy is a contributing factor [facility] Work Phone: [phone]) 381-678612-09-2024 History of Present illness Narrative* Rachel Brooks MD - 08/31/2024 9:00 AM EST Cancer follow up HPI: My Jama is a 64 y.o. male following up with me today for follow up of his [id number] oral cavity SCCa with chin involvement. Last seen 04/15. Continues with Amber SCOTT. Is no longer capping as much. Reports it is harder for him to breath when he caps it. Wound has remained open in the left neck despite yrs of wound care so he stopped seeing them. He has a history of [id number] oral cavity SCCa with chin involvement s/p triple, trach, PEG, composite resection, excision of skin and soft tissue, segmental mandibulectomy, right neck dissection, leftneck exploration for vessels, reconstruction with left ALT and left fibular free flap on 11/07/21. Patient completed adjuvant chemoradiation on 02/06/22. He is being see by Dr. Gallagher Friend, GI. He has been needing serial dilations. His last dilation only lasted 1 mo. He is scheduled for his next dilation 09/2024. He is getting botox injections with his dilations. Per daughter last botox injection was 100U but still got getting much response. He isblending all of his food. He doesn't have a PEG. Might consider seeing Dr. Carrero for evaluation. He had follow up by audiology today and his BRENNAN are working well. Has bilateral SNHL kizzy in high freq. History: Dx1: [id number] left neck (unknown primary) 2018 Dx2: [id number] SCCa of the oral cavity 2020 Dx3: Dysphagia (chronic but worsening) 202204/28/18: +odynophagia, EGD +distal esophagitis, biopsies +reflux Late 11/11: First noticed left neck mass 12/15/18: 1st evaluation, for enlarging left neck mass 12/17/18: CT neck and chest with left pathologic lymphadenopathy measuring 1.8x1.8x2.9cm and second lymph node measuring 1.2x1.6cm. CT chest with small scattered pulmonary nodules largest RUL 5mm, recommend CT chest in 1yr 12/22/18: US guided FNA of the left neck mass +SCCa with extensive necrosis, P16 negative. 12/31/18: Seen by medical oncologist, recommended ENT & PET scan 01/02/19: OSH ENT consult with left fixed lymphadenopathy, small cystic lesion noted on uvula, negative laryngoscopy 01/05/19: PET scan with 2 hypermetabolic areas in the left neck (SUV 8.6 max), and increased FDG avidity in the left pharynx (SUV 3.4) measures 1.9cm 01/30/19: Triple endoscopy with tonsillectomy and uvulectomy removal 02/09/19: Started chemoradiation therapy 03/23/19: Last chemotherapy 03/25/19: Completed chemoradiation therapy 09/12: Loose anterior mandibular teeth/dental extraction 09/12: CT neck w/contrast enhancing mass involving the anterior oral cavity & symphysis with bone involvement, no lymphadenopathy 09/12: Oral cavity biopsy at [facility] +SCCa 10/14: PET FDG avid oral cavity mass w/bone involvement SUV12, no lymphadenopathy or distant metastasis 11/07/21: S/p triple, trach, PEG, composite resection, excision of skin and soft tissue, segmental mandibulectomy, right neck dissection, left neck exploration for vessels, reconstruction with left ALT and left fibular free flap. Path + 6.5cm SCCa, 12/11 lymph nodes + metastasis. 11/10/21: S/p left neck exploration and revision of ALT flap (release of arterial kinking) 12/12: TB recommends radiation +/- chemotherapy 11/29/21: Trach changed to #4 cuffless & capped, +cellulitis of chin and fibula on bactrim 12/03/21: Decannulated, decreased erythema 12/05/21: ED visit for SOB, 4-0 trach replaced 12/12: Started chemoradiation therapy 12/18: Trach open #4 12/29/21: Urgent add on - trach upsized to a #6 distal XLT 02/06/22: Completed chemoradiation 04/02/22: Left neck wound increased in size. Cultures obtained- + MRSA - recommend bactroban 05/14: Seeing wound care for stable midline neck wound - doing serial debridements 06/14: Integra placement without take 02/12: Wound continues to get smaller, XLT trach capped during the day 03/15: Trach change 09/14: Per patient recent imaging CT scans negative for cancer recurrence, failed swallow test 09/14: CXR negative 09/03/23: Esophagoscopy and dilation by Dr. Akhtar 02/13: Esoph & dilation, botox by Dr. Akhtar 08/16: Esoph and dilation, botox by Dr. Akhtar- only lasted 1 month 08/31/24: Persistent open neck wound 10/17: Next dilation & botox injection by Dr. Akhtar ROS: Review of Systems Constitutional: Negative for appetite change, chills, fatigue, fever and unexpected weight change. HENT: Positive for trouble swallowing. Negative for dental problem, drooling, ear pain, facial swelling, mouth sores, sore throat, tinnitus and voice change. Respiratory: Negative for cough, shortness of breath and stridor. Gastrointestinal: Negative for nausea and vomiting. Musculoskeletal: Negative for neck pain. Hematological: Negative for adenopathy. All other systems reviewed and are negative. PE: ENT Physical Exam Constitutional Appearance: patient appears well-developed and well-groomed, patient is cooperative; Communication/Voice: Communication comments: uses finger to cap w/trach in place (has speaking valve but doesn't use it), some articulation difficulties but understandable Head and Face Appearance: head appears normal; Salivary: glands normal; Head and Face comments: Face reconstruction with chin skin paddle well integrated, +radiation changes, extensive head/neck surgery, occasional drooling Ear Hearing: impaired to conversational voice; Auricles: right auricle normal; left auricle normal; Ear comments: Bilateral BRENNAN Nose External Nose: nares patent bilaterally; external nose normal; Internal Nose: nasal mucosa normal; septum normal; Oral Cavity/Oropharynx Lips: normal; Gums: gingiva normal; Tongue: normal; Oral mucosa: mucous membranes dry; OC/OP comments: +tongue edema, no masses within the oral cavity, well healed reconstruction along FOM, s/p uvulectomy Neck Neck: scars present; tracheostomy noted; tracheostomy tube present; Tracheostomy tube size: 6 mm; Tracheostomy tube type: shiley XLT; Neck comments: Superficial left neck wound 3cm in size very dry today Respiratory Inspection: breathing unlabored; Cardiovascular Inspection: extremities are warm and well perfused; Lymphatic Palpation: no cervical adenopathy noted; Neurovestibular Mental Status: alert and oriented; Psychiatric: mood normal; affect is appropriate; Procedures PROCEDURE NOTE: Recommended flexible nasopharyngoscopy & laryngoscopy. Risks, benefits, personnel and alternatives were explained. The patient wished to proceed. S/he was re-identified. PROCEDURE: Flexible nasopharyngoscopy and laryngoscopy PREOPERATIVE DIAGNOSIS: oral cavity cancer surveillance POSTOPERATIVE DIAGNOSIS: Same as above, retroflexed epiglottis and radiation edema which remains severe INDICATIONS: Inability to tolerate mirror exam ANESTHESIA: 4% lidocaine and 0.5% phenylephrine PROCEDURE: With the patient sitting upright topical anesthesia and vasoconstriction was applied with spray to the right side(s) of the nose. After waiting an appropriate period of time for anesthesia/vasoconstriction to become effective, a flexible laryngoscope was passed through the right side(s) of the nose. Nasopharynx, oropharynx, hypopharynx and larynx were examined. FINDINGS: The nasopharynx was normal without any lesions or masses visualized. However upon entrance into the oropharynx there is extensive edema with a retroflexed epiglottis and poor patency. No masses or lesions were visualized at the base of tongue. It is difficult to visualize the supraglottisexcept the epiglottis because of how retroflexed it is making it hard to get the scope past but once it is we had to use the patient vocalizing to be able to identify the aryepiglottic folds, FVC andTVC. No masses or lesions but very tight airway. +vocal fold mobility. The patient's airway is severely restricted by the retroflexed epiglottis and radiation edema. Patient tolerated the procedure we ll, and there were no complications. 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 Carrero and consideration for other options Discussed total laryngectomy but has severe wound healing issues and he is not excited about this Continue current diet and modifications Weight stable Sensorineural hearing loss (SNHL) of both ears - Primary Current Assessment & Plan Good response to BRENNAN - wearing them today and doing well Bilateral SNHL Chemotherapy is a contributing factor Tracheostomy dependence (Multi) Current Assessment & Plan Discussed that his airway is too restricted to consider trach removal Continue trach care Uses finger to cap when speaking has difficulty even with speaking valve Open wound of neck Current Assessment & Plan Referral back to wound center Relevant Orders Referral to Wound Clinic Rachel Brooks MD Head & Neck Surgical Oncology & Reconstruction Department of Otolaryngology - Head and Neck Surgery By signing my name below, I, Kuldeep Braden, attest that this documentation has been prepared under the direction and in the presence of Dr. Rachel Brooks MD. All medical record entries made by the Scribe were at my direction and personally dictated by me, Dr. Rachel Brooks. I have reviewed the chart and agree that the record accurately reflects my personal performance of the history, physical exam, discussion and plan. documented in this [facility] Work Phone: 1(578) 307-781512-09-2024 Instructions* Patient Instructions* Koki Schneider RN - 08/31/2024 9:[address] Brooks evaluated you today. Your care plan is outlined below: -- see wound care -- Follow up with Dr. Brooks in 6 mo. This appointment was scheduled at the end of your visit today. If you need to reschedule, please call the office at [phone]. Please keep in mind that last minute cancellations often result in delayed follow-up appointments. General appointment line please call [phone] For general questions or scheduling issues please call [phone] option #2 For medical questions or surgery scheduling please call [phone] on Mondays, Wednesdays and or [phone] on Tuesdays and Fridays. Please be sure to leave a voice mail or your call will not be able to be returned. Dr. Brooks makes every effort to run on time for your appointments. Therefore, if you are more than30 minutes late for your appointment, unrelated to a scan or another appointment such as chemotherapy or radiation, your appointment will need to be rescheduled to another day. We appreciate your understanding. [facility] Work Phone: 1(994) 153-743607-22-2024 Evaluation + Plan note* Assessment & Plan Note - Rachel Brooks MD - 04/13/2024 2:34 PM EDTAssociated Problem(s): Tracheostomy dependence (Multi) Discussed that his airway is too restricted to consider trach removal Continue trach care Can use speaking valve during day [facility] Work Phone: 1([phone]) 265-444007-22-2024 Miscellaneous Notes* Assessment & Plan Note - Rachel Brooks MD - 04/13/2024 2:34 PM EDTAssociated Problem(s): Tracheostomy dependence (Multi) Discussed that his airway is too restricted to consider trach removal Continue trach care Can use speaking valve during day * Assessment & Plan Note - Rachel Brooks MD - 04/13/2024 2:33 PM EDT Associated Problem(s): 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 Akhtar 02/13 Continue current diet and modifications Weight stable * Assessment & Plan Note - Rachel Brooks MD - 04/13/2024 2:32 PM EDT Associated Problem(s): Hypothyroidism Chronic, acquired Adverse effect of radiation Continue daily synthroid * Assessment & Plan Note - Rachel Brooks MD - 04/13/2024 2:31 PM EDT Associated Problem(s): Sensorineural hearing loss (SNHL) of both ears Reviewed audiogram obtained today Has BRENNAN and is using these Chemotherapy is a contributing factor documented [facility] Work Phone: 1(158) 340-548007-22-2024 Evaluation + Plan note* Assessment & Plan Note - Rachel Brooks MD - 04/13/2024 2:33 PM EDTAssociated Problem(s): 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 Akhtar 02/13 Continue current diet and modifications Weight stable [facility] Work Phone: 1(243) 562-128107-22-2024 Evaluation + Plan note* Assessment & Plan Note - Rachel Brooks MD - 04/13/2024 2:32 PM EDTAssociated Problem(s): Hypothyroidism Chronic, acquired Adverse effect of radiation Continue daily synthroid [facility] Work Phone: 1(875) 556-422707-22-2024 Evaluation + Plan note* Assessment & Plan Note - Rachel Brooks MD - 04/13/2024 2:31 PM EDTAssociated Problem(s): Sensorineural hearing loss (SNHL) of both ears Reviewed audiogram obtained today Has BRENNAN and is using these Chemotherapy is a contributing factor [facility] Work Phone: [phone]) [phone] History of Present illness Narrative* Rachel Brooks MD - 04/13/2024 1:45 PM EDT Cancer follow up HPI: My Jama is a 63 y.o. male following up with me today for follow up of his [id number] oral cavity SCCa with chin involvement. Last seen 02/13. Continues with Amber SCOTT caps during day but he forgot it today. Wound has remained open in the left neck despite yrs of wound care. He has a history of [id number] oral cavity SCCa with chin involvement s/p triple, trach, PEG, composite resection, excision of skin and soft tissue, segmental mandibulectomy, right neck dissection, leftneck exploration for vessels, reconstruction with left ALT and left fibular free flap on 11/07/21. Patient completed adjuvant chemoradiation on 02/06/22. He is being see by JAMIL Jacob. Dr. Akhtar did an esoph/dilation with botox injection 02/13 which has helped with his chronic dysphagia. He doesn't have a PEG. He had follow up by audiology today and his BRENNAN are working well. Has bilateral SNHL kizzy in high freq. History: Dx1: [id number] left neck (unknown primary) 2018 Dx2: [id number] SCCa of the oral cavity 2020 Dx3: Dysphagia (chronic but worsening) 202204/28/18: +odynophagia, EGD +distal esophagitis, biopsies +reflux Late 11/11: First noticed left neck mass 12/15/18: 1st evaluation, for enlarging left neck mass 12/17/18: CT neck and chest with left pathologic lymphadenopathy measuring 1.8x1.8x2.9cm and second lymph node measuring 1.2x1.6cm. CT chest with small scattered pulmonary nodules largest RUL 5mm, recommend CT chest in 1yr 12/22/18: US guided FNA of the left neck mass +SCCa with extensive necrosis, P16 negative. 12/31/18: Seen by medical oncologist, recommended ENT & PET scan 01/02/19: OSH ENT consult with left fixed lymphadenopathy, small cystic lesion noted on uvula, negative laryngoscopy 01/05/19: PET scan with 2 hypermetabolic areas in the left neck (SUV 8.6 max), and increased FDG avidity in the left pharynx (SUV 3.4) measures 1.9cm 01/30/19: Triple endoscopy with tonsillectomy and uvulectomy removal 02/09/19: Started chemoradiation therapy 03/23/19: Last chemotherapy 03/25/19: Completed chemoradiation therapy 09/12: Loose anterior mandibular teeth/dental extraction 09/12: CT neck w/contrast enhancing mass involving the anterior oral cavity & symphysis with bone involvement, no lymphadenopathy 09/12: Oral cavity biopsy at [facility] +SCCa 10/14: PET FDG avid oral cavity mass w/bone involvement SUV12, no lymphadenopathy or distant metastasis 11/07/21: S/p triple, trach, PEG, composite resection, excision of skin and soft tissue, segmental mandibulectomy, right neck dissection, left neck exploration for vessels, reconstruction with left ALT and left fibular free flap. Path + 6.5cm SCCa, 12/11 lymph nodes + metastasis. 11/10/21: S/p left neck exploration and revision of ALT flap (release of arterial kinking) 12/12: TB recommends radiation +/- chemotherapy 11/29/21: Trach changed to #4 cuffless & capped, +cellulitis of chin and fibula on bactrim 12/03/21: Decannulated, decreased erythema 12/05/21: ED visit for SOB, 4-0 trach replaced 12/12: Started chemoradiation therapy 12/18: Trach open #4 12/29/21: Urgent add on - trach upsized to a #6 distal XLT 02/06/22: Completed chemoradiation 04/02/22: Left neck wound increased in size. Cultures obtained- + MRSA - recommend bactroban 05/14: Seeing wound care for stable midline neck wound - doing serial debridements 06/14: Integra placement without take 02/12: Wound continues to get smaller, XLT trach capped during the day 03/15: Trach change 09/14: Per patient recent imaging CT scans negative for cancer recurrence, failed swallow test 09/14: CXR negative 09/03/23: Esophagoscopy and dilation by Dr. Akhtar 02/13: Esoph & dilation, botox by Dr. Akhtar ROS: Review of Systems Constitutional: Negative for appetite change, chills, fatigue, fever and unexpected weight change. HENT: Positive for hearing loss and trouble swallowing. Negative for dental problem, drooling, ear pain, facial swelling, mouth sores, sore throat, tinnitus and voice change. Respiratory: Negative for cough, shortness of breath and stridor. Gastrointestinal: Negative for nausea and vomiting. Musculoskeletal: Negative for neck pain. Hematological: Negative for adenopathy. All other systems reviewed and are negative. PE: ENT Physical Exam Constitutional Appearance: patient appears well-developed and well-groomed, patient is cooperative; Communication/Voice: Communication comments: +trach in place forgot speaking valve at home, understandable voice but with expected difficulty with articulation due to extensive head/neck surgery & reconstruction Head and Face Appearance: head appears normal; Salivary: glands normal; Head and Face comments: Face reconstruction with chin skin paddle well integrated, +radiation changes, extensive head/neck surgery Ear Auricles: right auricle normal; left auricle normal; Ear Canals: right ear canal normal; left ear canal normal; Ear comments: Bilateral Tms with healed prior perforations posteriorly with very thin drums, no effusions Nose External Nose: nares patent bilaterally; external nose normal; Internal Nose: nasal mucosa normal; septum normal; Oral Cavity/Oropharynx Lips: normal; Gums: gingiva normal; Tongue: normal; Oral mucosa: mucous membranes dry; OC/OP comments: +tongue edema, no masses within the oral cavity, well healed reconstruction along FOM, s/p uvulectomy Neck Neck: scars present; tracheostomy noted; tracheostomy tube present; Tracheostomy tube size: 6 mm; Tracheostomy tube type: shiley; Neck comments: Superficial left neck wound remains 2cm in size very dry today Respiratory Inspection: breathing unlabored; Cardiovascular Inspection: extremities are warm and well perfused; Lymphatic Palpation: no cervical adenopathy noted; Neurovestibular Mental Status: alert and oriented; Psychiatric: mood normal; affect is appropriate; Procedures PROCEDURE NOTE: Recommended flexible nasopharyngoscopy & laryngoscopy. Risks, benefits, personnel and alternatives were explained. The patient wished to proceed. S/he was re-identified. PROCEDURE: Flexible nasopharyngoscopy and laryngoscopy PREOPERATIVE DIAGNOSIS: oral cavity cancer surveillance POSTOPERATIVE DIAGNOSIS: Same as above, retroflexed epiglottis and radiation edema INDICATIONS: Inability to tolerate mirror exam ANESTHESIA: 4% lidocaine and 0.5% phenylephrine PROCEDURE: With the patient sitting upright topical anesthesia and vasoconstriction was applied with spray to the right side(s) of the nose. After waiting an appropriate period of time for anesthesia/vasoconstriction to become effective, a flexible laryngoscope was passed through the right side(s) of the nose. Nasopharynx, oropharynx, hypopharynx and larynx were examined. FINDINGS: The nasopharynx was normal without any lesions or masses visualized. However upon entrance into the oropharynx there is extensive edema with a retroflexed epiglottis and poor patency. No masses or lesions were visualized at the base of tongue. It is difficult to visualize the supraglottisexcept the epiglottis because of how retroflexed it is making it hard to get the scope past but once it is we had to use the patient vocalizing to be able to identify the aryepiglottic folds, FVC andTVC. No masses or lesions but very tight airway. +vocal fold mobility. The patient's airway is severely restricted by the retroflexed epiglottis and radiation edema. Patient tolerated the procedure we ll, and there were no complications. 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 Akhtar 02/13 Continue current diet and modifications Weight stable Sensorineural hearing loss (SNHL) of both ears - Primary Current Assessment & Plan Reviewed audiogram obtained today Has BRENNAN and is using these Chemotherapy is a contributing factor Tracheostomy dependence (Multi) Current Assessment & Plan Discussed that his airway is too restricted to consider trach removal Continue trach care Can use speaking valve during day Rachel Brooks MD Head & Neck Surgical Oncology & Reconstruction Department of Otolaryngology - Head and Neck Surgery By signing my name below, I, Koki Schneider Scribe, attest that this documentation has been prepared under the direction and in the presence of Dr. Rachel Brooks MD. All medical record entries made by the Scribe were at my direction and personally dictated by me, Dr. Rachel Brooks. I have reviewed the chart and agree that the record accurately reflects my personal performance of the history, physical exam, discussion and plan. 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) No evidence of dx [facility] Work Phone: 1([phone]) 416-450905-13-2024 Evaluation + Plan note* Assessment & Plan Note - Rachel Brooks MD - 02/03/2024 9:16 AM EDTAssociated Problem(s): Cancer of oral cavity (Multi) No evidence of dx Follow up in 6 months [facility] Work Phone: [phone]) 736-274205-13-2024 Evaluation + Plan note* Assessment & Plan Note - Rachel Brooks MD - 02/03/2024 9:16 AM EDTAssociated Problem(s): Oropharyngeal dysphagia Chronic, moderate, adverse effect of radiation Worsening over the last 1-2 months Has h/o prior esoph dilation by Dr. Akhtar since it's very hard for him to get to [place] Seeing Dr. 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 Akhtar since it's very hard for him to get to [place] Seeing Dr. Akhtar on Saturday He will likely need another esoph dilation Has failed MBS but is tolerating po without PNA and does not want PEG * Assessment & Plan Note - Rachel Brooks MD - 02/03/2024 9:15 AM EDT Associated Problem(s): Hypothyroidism Acquired hypothyroidism Continue daily synthroid * Assessment & Plan Note - Rachel Brooks MD - 02/03/2024 9:15 AM EDT Associated Problem(s): Sensorineural hearing loss (SNHL) of both ears BRENNAN check today, doing well Continue to follow with audiology [facility] Work Phone: 1([phone]) [phone] Evaluation + Plan note* Assessment & Plan Note - Rachel Brooks MD - 02/03/2024 9:15 AM EDTAssociated Problem(s): Hypothyroidism Acquired hypothyroidism Continue daily synthroid [facility] Work Phone: [phone]) 571-633205-13-2024 Evaluation + Plan note* Assessment & Plan Note - Rachel Brooks MD - 02/03/2024 9:15 AM EDTAssociated Problem(s): Sensorineural hearing loss (SNHL) of both ears BRENNAN check today, doing well Continue to follow with audiology [facility] Work Phone: [phone]) 105-767405-13-2024 History of Present illness Narrative* Rachel Brooks MD - 02/03/2024 8:45 AM EDT Cancer follow up TSH: Chest: HPI: My Jama is a 63 y.o. male following up with me today for follow up of his [id number] oral cavity SCCa with chin involvement. Last seen 09/14. He continues to be followed at the [place] wound clinic for his left neck chronic skin wound. Continues with Amber SCOTT caps during day. Wound has remained open in the left neck. He has a history of [id number] oral cavity SCCa with chin involvement s/p triple, trach, PEG, composite resection, excision of skin and soft tissue, segmental mandibulectomy, right neck dissection, leftneck exploration for vessels, reconstruction with left ALT and left fibular free flap on 11/07/21. Patient completed adjuvant chemoradiation on 02/06/22. He is being see by Dr. Elliott Akhtar, GI. Dr. Akhtar did an esoph/dilation 09/14 which did help his swallowing for several weeks but then returned to previous baseline. He is seeing Dr. Akhtar on Saturday. ~1 month ago he started having to crush his medium-sized pills which is new. Seems like his dysphagia is worse. He doesn't have a PEG. He is seeing Dr. Soto (rad onc) today. History: Dx1: [id number] left neck (unknown primary) 2018 Dx2: [id number] SCCa of the oral cavity 2020 Dx3: Dysphagia (chronic but worsening) 202204/28/18: +odynophagia, EGD +distal esophagitis, biopsies +reflux Late 11/11: First noticed left neck mass 12/15/18: 1st evaluation, for enlarging left neck mass 12/17/18: CT neck and chest with left pathologic lymphadenopathy measuring 1.8x1.8x2.9cm and second lymph node measuring 1.2x1.6cm. CT chest with small scattered pulmonary nodules largest RUL 5mm, recommend CT chest in 1yr 12/22/18: US guided FNA of the left neck mass +SCCa with extensive necrosis, P16 negative. 12/31/18: Seen by medical oncologist, recommended ENT & PET scan 01/02/19: OSH ENT consult with left fixed lymphadenopathy, small cystic lesion noted on uvula, negative laryngoscopy 01/05/19: PET scan with 2 hypermetabolic areas in the left neck (SUV 8.6 max), and increased FDG avidity in the left pharynx (SUV 3.4) measures 1.9cm 01/30/19: Triple endoscopy with tonsillectomy and uvulectomy removal 02/09/19: Started chemoradiation therapy 03/23/19: Last chemotherapy 03/25/19: Completed chemoradiation therapy 09/12: Loose anterior mandibular teeth/dental extraction 09/12: CT neck w/contrast enhancing mass involving the anterior oral cavity & symphysis with bone involvement, no lymphadenopathy 09/12: Oral cavity biopsy at [facility] +SCCa 10/14: PET FDG avid oral cavity mass w/bone involvement SUV12, no lymphadenopathy or distant metastasis 11/07/21: S/p triple, trach, PEG, composite resection, excision of skin and soft tissue, segmental mandibulectomy, right neck dissection, left neck exploration for vessels, reconstruction with left ALT and left fibular free flap. Path + 6.5cm SCCa, 12/11 lymph nodes + metastasis. 11/10/21: S/p left neck exploration and revision of ALT flap (release of arterial kinking) 12/12: TB recommends radiation +/- chemotherapy 11/29/21: Trach changed to #4 cuffless & capped, +cellulitis of chin and fibula on bactrim 12/03/21: Decannulated, decreased erythema 12/05/21: ED visit for SOB, 4-0 trach replaced 12/12: Started chemoradiation therapy 12/18: Trach open #4 12/29/21: Urgent add on - trach upsized to a #6 distal XLT 02/06/22: Completed chemoradiation 04/02/22: Left neck wound increased in size. Cultures obtained- + MRSA - recommend bactroban 05/14: Seeing wound care for stable midline neck wound - doing serial debridements 06/14: Integra placement without take 02/12: Wound continues to get smaller, XLT trach capped during the day 03/15: Trach change 09/14: Per patient recent imaging CT scans negative for cancer recurrence, failed swallow test 09/14: CXR negative 09/03/23: Esophagoscopy and dilation by Dr. Akhtar ROS: Review of Systems Constitutional: Negative for appetite change, chills, fatigue, fever and unexpected weight change. HENT: Positive for hearing loss and trouble swallowing. Negative for dental problem, drooling, ear pain, facial swelling, mouth sores, sore throat, tinnitus and voice change. Respiratory: Negative for cough, shortness of breath and stridor. Gastrointestinal: Negative for nausea and vomiting. Musculoskeletal: Negative for neck pain. Hematological: Negative for adenopathy. All other systems reviewed and are negative. PE: ENT Physical Exam Constitutional Appearance: patient appears well-developed and well-groomed, patient is cooperative; Communication/Voice: Communication comments: +trach in place with speaking valve, understandable voice but with expected difficulty with articulation due to extensive head/neck surgery & reconstruction Head and Face Appearance: head appears normal; Salivary: glands normal; Head and Face comments: Face reconstruction with chin skin paddle well integrated, +radiation changes, extensive head/neck surgery Ear Auricles: right auricle normal; left auricle normal; Ear Canals: right ear canal normal; left ear canal normal; Ear comments: Bilateral Tms with healed prior perforations posteriorly with very thin drums, no effusions Nose External Nose: nares patent bilaterally; external nose normal; Internal Nose: nasal mucosa normal; septum normal; Oral Cavity/Oropharynx Lips: normal; Gums: gingiva normal; Tongue: normal; Oral mucosa: mucous membranes dry; OC/OP comments: +tongue edema, no masses within the oral cavity, well healed reconstruction along FOM, s/p uvulectomy Neck Neck: scars present; tracheostomy noted; tracheostomy tube present; Tracheostomy tube size: 6 mm; Tracheostomy tube type: shiley; Passy-Griffin speaking valve present; Neck comments: Superficial left neck wound remains 2cm in size Respiratory Inspection: breathing unlabored; Cardiovascular Inspection: extremities are warm and well perfused; Lymphatic Palpation: no cervical adenopathy noted; Neurovestibular Mental Status: alert and oriented; Psychiatric: mood normal; affect is appropriate; Procedures PROCEDURE NOTE: Recommended flexible nasopharyngoscopy & laryngoscopy. Risks, benefits, personnel and alternatives were explained. The patient wished to proceed. S/he was re-identified. PROCEDURE: Flexible nasopharyngoscopy and laryngoscopy PREOPERATIVE DIAGNOSIS: oral cavity cancer POSTOPERATIVE DIAGNOSIS: Same as above, retroflexed epiglottis and radiation edema INDICATIONS: Inability to tolerate mirror exam ANESTHESIA: 4% lidocaine and 0.5% phenylephrine PROCEDURE: With the patient sitting upright topical anesthesia and vasoconstriction was applied with spray to the right side(s) of the nose. After waiting an appropriate period of time for anesthesia/vasoconstriction to become effective, a flexible laryngoscope was passed through the right side(s) of the nose. Nasopharynx, oropharynx, hypopharynx and larynx were examined. FINDINGS: The nasopharynx was normal without any lesions or masses visualized. Retroflexed epiglottis and radiation edema. No masses or lesions were visualized at the base of tongue, vallecula, epiglottis, aryepiglottic folds, pyriform sinuses, and lateral pharyngeal johnson. True vocal fold movementwas present. The patient's airway was patent but restricted by the retroflexed epiglottis and radiation edema. Patient tolerated the procedure well, and there were no complications. 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 Akhtar since it's very hard for him to get to [place] Seeing Dr. Akhtar on Saturday He will likely need another esoph dilation Has failed MBS but is tolerating po without PNA and does not want PEG Sensorineural hearing loss (SNHL) of both ears - Primary Current Assessment & Plan BRENNAN check today, doing well Continue to follow with audiology Rachel Brooks MD Head & Neck Surgical Oncology & Reconstruction Department of Otolaryngology - Head and Neck Surgery By signing my name below, Koki Holbrook Scribe, attest that this documentation has been prepared under the direction and in the presence of Dr. Rachel Brooks MD. All medical record entries made by the Violetaibnallely were at my direction and personally dictated by me, Dr. Rachel Brooks. I have reviewed the chart and agree that the record accurately reflects my personal performance of the history, physical exam, discussion and plan. [facility] Work Phone: 1([phone]) 938-305912-12-2023 Procedure [facility] 09-03-2023 Procedure [facility]12-11-2023 Evaluation + Plan note* Assessment & Plan Note - Rachel Brooks MD - 09/02/2023 11:13 PM EST Associated Problem(s): Cancer of oral cavity (CMS/HCC) No evidence of recurrence Adverse effects of treatment including dysphagia Remains trach/PEG dependent Has chronic left neck wound Follow up in 3-4 months [facility] Work Phone: [phone]) [phone] Miscellaneous Notes* Assessment & Plan Note - Rachel Brooks MD - 09/02/2023 11:13 PM ESTAssociated Problem(s): Cancer of oral cavity (CMS/HCC) No evidence of recurrence Adverse effects of treatment including dysphagia Remains trach/PEG dependent Has chronic left neck wound Follow up in 3-4 months * Assessment & Plan Note - Rachel Brooks MD - 09/02/2023 11:12 PM EST Associated Problem(s): Hypothyroidism Needs updated TSH * Assessment & Plan Note - Rachel Brooks MD - 09/02/2023 11:10 PM EST Associated Problem(s): Oropharyngeal dysphagia He had recent MBS or esophagram which I don't have access to He is scheduled for GI to do esoph/dilation tomorrow Do not recommend esophageal stent with history of radiation and with his larynx still in place Will reach out to his GI Discussed that I can also perform dilations but only in [place] which is inconvenient to him documented [facility] Work Phone: [phone]) [phone] Evaluation + Plan note* Assessment & Plan Note - Rachel Brooks MD - 09/02/2023 11:12 PM ESTAssociated Problem(s): Hypothyroidism Needs updated TSH [facility] Work Phone: [phone]) 496-706212-11-2023 Evaluation + Plan note* Assessment & Plan Note - Rachel Brooks MD - 09/02/2023 11:10 PM ESTAssociated Problem(s): Oropharyngeal dysphagia He had recent MBS or esophagram which I don't have access to He is scheduled for GI to do esoph/dilation tomorrow Do not recommend esophageal stent with history of radiation and with his larynx still in place Will reach out to his GI Discussed that I can also perform dilations but only in [place] which is inconvenient to him [facility] Work Phone: [phone]) 423-768212-11-2023 History of Present illness Narrative* Rachel Brooks MD - 09/02/2023 1:30 PM EST Cancer follow up TSH: Due today Chest: Due today HPI: My Jama is a 63 y.o. male following up with me today for follow up of his [id number] oral cavity SCCa with chin involvement. Last seen 03/15. He continues to be followed at the [place] wound clinic for his left neck chronic skin wound. Continues with Amber SCOTT caps during day. Wound has remained open in the left neck. He has a history of [id number] oral cavity SCCa with chin involvement s/p triple, trach, PEG, composite resection, excision of skin and soft tissue, segmental mandibulectomy, right neck dissection, leftneck exploration for vessels, reconstruction with left ALT and left fibular free flap on 11/07/21. Patient completed adjuvant chemoradiation on 02/06/22. For his cancer he reports recent CT images which I don't have access to which are negative for cancer recurrence. He also had a MBS w/speech or esophagram (patient not sure which) that showed +aspiration and severe dysphagia. He is being see by Dr. Gallagher Friend, GI who is planned to take him for esophagoscopy and dilation tomorrow 09/03/23. It was also discussed that he may require an esophageal stent. Patient has also been told he has no voice box but he has his voice box so there is certainly some misunderstanding of his history. He has his trach in place and speaks with his speaking valve. History: Dx1: [id number] left neck (unknown primary) 2018 Dx2: [id number] SCCa of the oral cavity 202004/28/18: +odynophagia, EGD +distal esophagitis, biopsies +reflux Late 11/11: First noticed left neck mass 12/15/18: 1st evaluation, for enlarging left neck mass 12/17/18: CT neck and chest with left pathologic lymphadenopathy measuring 1.8x1.8x2.9cm and second lymph node measuring 1.2x1.6cm. CT chest with small scattered pulmonary nodules largest RUL 5mm, recommend CT chest in 1yr 12/22/18: US guided FNA of the left neck mass +SCCa with extensive necrosis, P16 negative. 12/31/18: Seen by medical oncologist, recommended ENT & PET scan 01/02/19: OSH ENT consult with left fixed lymphadenopathy, small cystic lesion noted on uvula, negative laryngoscopy 01/05/19: PET scan with 2 hypermetabolic areas in the left neck (SUV 8.6 max), and increased FDG avidity in the left pharynx (SUV 3.4) measures 1.9cm 01/30/19: Triple endoscopy with tonsillectomy and uvulectomy removal 02/09/19: Started chemoradiation therapy 03/23/19: Last chemotherapy 03/25/19: Completed chemoradiation therapy 09/12: Loose anterior mandibular teeth/dental extraction 09/12: CT neck w/contrast enhancing mass involving the anterior oral cavity & symphysis with bone involvement, no lymphadenopathy 09/12: Oral cavity biopsy at [facility] +SCCa 10/14: PET FDG avid oral cavity mass w/bone involvement SUV12, no lymphadenopathy or distant metastasis 11/07/21: S/p triple, trach, PEG, composite resection, excision of skin and soft tissue, segmental mandibulectomy, right neck dissection, left neck exploration for vessels, reconstruction with left ALT and left fibular free flap. Path + 6.5cm SCCa, 12/11 lymph nodes + metastasis. 11/10/21: S/p left neck exploration and revision of ALT flap (release of arterial kinking) 12/12: TB recommends radiation +/- chemotherapy 11/29/21: Trach changed to #4 cuffless & capped, +cellulitis of chin and fibula on bactrim 12/03/21: Decannulated, decreased erythema 12/05/21: ED visit for SOB, 4-0 trach replaced 12/12: Started chemoradiation therapy 12/18: Trach open #4 12/29/21: Urgent add on - trach upsized to a #6 distal XLT 02/06/22: Completed chemoradiation 04/02/22: Left neck wound increased in size. Cultures obtained- + MRSA - recommend bactroban 05/14: Seeing wound care for stable midline neck wound - doing serial debridements 06/14: Integra placement without take 02/12: Wound continues to get smaller, XLT trach capped during the day 03/15: Trach change 09/14: Per patient recent imaging CT scans negative for cancer recurrence, failed swallow test 09/03/23: Scheduled for esophagoscopy and dilation ROS: Review of Systems Constitutional: Negative for appetite change, chills, fatigue, fever and unexpected weight change. HENT: Positive for trouble swallowing. Negative for dental problem, drooling, ear pain, facial swelling, hearing loss, mouth sores, sore throat, tinnitus and voice change. Respiratory: Negative for cough, shortness of breath and stridor. Gastrointestinal: Negative for nausea and vomiting. Musculoskeletal: Negative for neck pain. Hematological: Negative for adenopathy. All other systems reviewed and are negative. PE: ENT Physical Exam Constitutional Appearance: patient appears well-developed and well-groomed, patient is cooperative; Communication/Voice: communication appropriate for developmental age; Head and Face Appearance: head appears normal and face appears normal; Salivary: glands normal; Head and Face comments: Face reconstruction with chin skin paddle well integrated Ear Auricles: right auricle normal; left auricle normal; Ear Canals: right ear canal normal; Tympanic Membranes: right tympanic membrane normal; Ear comments: Left cerumen against the TM, recommend debrox Nose External Nose: nares patent bilaterally; external nose normal; Internal Nose: nasal mucosa normal; septum normal; Oral Cavity/Oropharynx Lips: normal; Gums: gingiva normal; Tongue: normal; Oral mucosa: normal; OC/OP comments: +tongue edema, no masses within the oral cavity, well healed reconstruction Neck Neck: scars present; tracheostomy noted; tracheostomy tube present; Tracheostomy tube size: 6 mm; Tracheostomy tube type: shiley; Passy-Eliane speaking valve present; Neck comments: Superficial left neck wound remains 1-2cm in size Respiratory Inspection: breathing unlabored; Cardiovascular Inspection: extremities are warm and well perfused; Lymphatic Palpation: no cervical adenopathy noted; Neurovestibular Mental Status: alert and oriented; Psychiatric: mood normal; affect is appropriate; Procedures PROCEDURE NOTE: Recommended flexible nasopharyngoscopy & laryngoscopy. Risks, benefits, personnel and alternatives were explained. The patient wished to proceed. S/he was re-identified. PROCEDURE: Flexible nasopharyngoscopy and laryngoscopy PREOPERATIVE DIAGNOSIS: oral cavity cancer POSTOPERATIVE DIAGNOSIS: Same as above, retroflexed epiglottis and radiation edema INDICATIONS: Inability to tolerate mirror exam ANESTHESIA: 4% lidocaine and 0.5% phenylephrine PROCEDURE: With the patient sitting upright topical anesthesia and vasoconstriction was applied with spray to the right side(s) of the nose. After waiting an appropriate period of time for anesthesia/vasoconstriction to become effective, a flexible laryngoscope was passed through the right side(s) of the nose. Nasopharynx, oropharynx, hypopharynx and larynx were examined. FINDINGS: The nasopharynx and oropharynx were normal without any lesions or masses visualized. Retroflexed epiglottis and radiation edema. No masses or lesions were visualized at the base of tongue, vallecula, epiglottis, aryepiglottic folds, pyriform sinuses, and lateral pharyngeal johnson. True vocal fold movement was normal. The patient's airway was widely patent with no evidence of obstruction.Patient tolerated the procedure well, and there were no complications. 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) Relevant Orders XR chest 2 views Hypothyroidism - Primary Current Assessment & Plan Needs updated TSH Relevant Orders Thyroid Stimulating Hormone Oropharyngeal dysphagia Current Assessment & Plan He had recent MBS or esophagram which I don't have access to He is scheduled for GI to do esoph/dilation tomorrow Do not recommend esophageal stent with history of radiation and with his larynx still in place Will reach out to his GI Discussed that I can also perform dilations but only in [place] which is inconvenient to him Rachel Brooks MD Head & Neck Surgical Oncology & Reconstruction Department of Otolaryngology - Head and Neck Surgery By signing my name below, I, Violeta Bradenibe, attest that this documentation has been prepared under the direction and in the presence of Dr. Rachel Brooks MD. All medical record entries made by the Scribe were at my direction and personally dictated by me, Dr. Rachel Brooks. I have reviewed the chart and agree that the record accurately reflects my personal performance of the history, physical exam, discussion and plan. documented in this [facility] Work Phone: 1(740) 939-423411-01-2023 Instructions* Name Dates Details Follow up in 4-6 months Indication:Hypertension Start:22-Jul-2023 Instruction Type:Provider Instructions for Treatment Patient Instructions Indication:BMI 20.0-20.9, adult Start:22-Jul-2023 Instruction Type:Provider Instructions for Treatment How to Access Health Informa tion Online using Patient Portal and 3rd [employer] Apps Indication:BMI 20.0-20.9, adult Start:22-Jul-2023 Instruction Type:Patient Education Patient Instructions Indication:Tobacco abuse, in remission Start:16-Jan-2023 Instruction Type:Provider Instructions for Treatment How to Access Health Informa tion Online using Patient Portal and 3rd [employer] Apps Indication:Tobacco abuse, in remission Start:16-Jan-2023 Instruction Type:Patient Education Patient Instructions Indication:BMI less than 19,adult Start:15-Feb-2022 Instruction Type:Provider Instructions for Treatment How to Access Health Informa tion Online using Patient Portal and 3rd [employer] Apps Indication:BMI less than 19,adult Start:15-Feb-2022 Instruction Type:Patient Education Patient Instructions Indication:Hypothyroid Start:15-Dec-2021 Instruction Type:Provider Instructions for Treatment How to Access Health Informa tion Online using Patient Portal and 3rd [employer] Apps Indication:Hypothyroid Start:15-Dec-2021 Instruction Type:Patient Education Patient Instructions Indication:Smoker Start:15-Aug-2021 Instruction Type:Provider Instructions for Treatment How to Access Health Informa tion Online using Patient Portal and 3rd [employer] Apps Indication:Smoker Start:15-Aug-2021 Instruction Type:Patient Education Patient Instructions Indication:BMI 20.0-20.9, adult Start:26-Jul-2021 Instruction Type:Provider Instructions for Treatment How to Access Health Informa tion Online using Patient Portal and 3rd [employer] Apps Indication:BMI 20.0-20.9, adult Start:26-Jul-2021 Instruction Type:Patient Education Patient Instructions Indication:Dry mouth Start:13-Mar-2021 Instruction Type:Provider Instructions for Treatment How to Access Health Informa tion Online using Patient Portal and 3rd [employer] Apps Indication:Dry mouth Start:13-Mar-2021 Instruction Type:Patient Education Patient Instructions Indication:B12 nutritional deficiency Start:02-Dec-2020 Instruction Type:Provider Instructions for Treatment How to Access Health Informa tion Online using Patient Portal and 3rd Republican Apps Indication:Smoker Start:02-Dec-2020 Instruction Type:Patient Education Patient Instructions Indication:Hypothyroid Start:29-Aug-2020 Instruction Type:Provider Instructions for Treatment How to access health informa tion online Indication:BMI 23.0-23.9, adult Start:29-Aug-2020 Instruction Type:Patient Education How to access health informa tion online - Detail Indication:BMI 23.0-23.9, adult Start:29-Aug-2020 Instruction Type:Patient Education Patient Instructions Indication:BMI 23.0-23.9, adult Start:29-Aug-2020 Instruction Type:Provider Instructions for Treatment How to access health informa tion online Indication:Smoker Start:29-Jun-2020 Instruction Type:Patient Education How to access health informa tion online - Detail Indication:Smoker Start:29-Jun-2020 Instruction Type:Patient Education INSTRUCTIONS1 Indication:Smoker Start:29-Jun-2020 Instruction Type:Provider Instructions for Treatment How to access health informa tion online Indication:Smoker Start:14-Apr-2020 Instruction Type:Patient Education How to access health informa tion online - Detail Indication:Smoker Start:14-Apr-2020 Instruction Type:Patient Education Patient Instructions Indication:Smoker Start:14-Apr-2020 Instruction Type:Provider Instructions for Treatment How to access health informa tion online Indication:Smoker Start:14-Dec-2019 Instruction Type:Patient Education How to access health informa tion online - Detail Indication:Smoker Start:14-Dec-2019 Instruction Type:Patient Education Patient Instructions Indication:Smoker Start:14-Dec-2019 Instruction Type:Provider Instructions for Treatment How to access health informa tion online Indication:Smoker Start:02-Jan-2019 Instruction Type:Patient Education How to access health informa tion online - Detail Indication:Smoker Start:02-Jan-2019 Instruction Type:Patient Education Patient Instructions Indication:Smoker Start:02-Jan-2019 Instruction Type:Provider Instructions for Treatment How to access health informa tion online Indication:BMI 23.0-23.9, adult Start:15-Dec-2018 Instruction Type:Patient Education How to access health informa tion online - Detail Indication:BMI 23.0-23.9, adult Start:15-Dec-2018 Instruction Type:Patient Education Patient Instructions Indication:BMI 23.0-23.9, adult Start:15-Dec-2018 Instruction Type:Provider Instructions for Treatment [facility] Work Phone: 1(738) 881-626807-19-2023 Progress note Author Joya Galvez [facility] April 10, 2023 10:05am Note Date/Time April 10, 2023 10:0 5am [facility] [address] [place] [address] Progress Note - Wound Care 04/10/23 1002 MR#: [id number] Acct: [id number] Name: MY JAMA Yamilet Rep #:[id number] : 1960 62 From: Joya Galvez NP [employer] PCP: YARI Pardo Status:REG RCR Location: History of Present Illness Date of Service: 04/10/23 Chief Complaint: 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 He received courses of chemotherapy followed by radiation treatments, which wereconcluded by the end of 2017. He recently underwent oral surgery and had 8 teeth extracted. Two extraction sites have failed to heal. On November 07, 2021, the patient underwent reconstruction of the jaw using bone from his left lower leg. 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 Progress of Wound: The wound in the submandibular area has completely healed over with new skin. He still has a divot but that will eventually fill and. Some have some irritation around the trach site which he itches because its dry. I suggested they use some absorbent cream like Eucerin or Cetaphil. May cover the area withgauze when out but actually can leave it open to air. Any more problems they can return Subjective Subjective Patient is very pleased with outcome so his daughter Objective Data Objective Data Patient will be discharged from the wound center today follow-up as needed can cover when outside with a gauze pad Vital Signs: Vital Signs Temp Pulse Resp BP O2 Del Method 97.9 F 79 16 132/62 H Room Air 04/03/23 08:38 04/10/23 08:36 04/10/23 08:36 04/10/23 08:36 04/10/23 08:36 Oxygen Delivery Method Room Air Weight: 130 lb Body Mass Index (BMI) 22.3 Lab / Micro Data Attestation: I reviewed the patient's lab results. Micro: Microbiology 04/03/23 09:00 Wound Abcess - Face Gram Stain - Final 04/03/23 09:00 Wound Abcess - Face Wound Culture - Final No growth aerobically. 04/03/23 09:00 Wound Abcess - Face Anaerobic Culture - Final No anaerobic bacteria isolated. Physical Exam Narrative ECOG 1 Hard of hearing Const alert, oriented x3 and no apparent distress General Appearance: cooperative and comfortable HEENT normocephalic HEENT Narrative: Reconstruction of the lower face, soft tissue edema Mouth: No thrush Eyes General Eye: normal appearance of both eyes Conjunctiva: conjunctiva normal Sclera: sclera normal Neck no lymphadenopathy and no JVD Neck Narrative: Postoperative changes and flap. Wound is covered with surgical dressing General: tracheostomy present Lymph Lymphatic: no lymphadenopathy noted Chest Chest: symmetrical chest wall rise Resp Auscultation: diminished lung sounds bilateral and diffuse Cardio regular rate and regular rhythm Jugular Venous Distention: Negative for JVD GI soft to palpation, non-tender and non-distended; Negative for hepatosplenomegaly GI Narrative: PEG tube Inspection: GI tube present no CVA tenderness Back/Spine no thoracic nor lumbar tenderness Extremity General Extremity: Negative for clubbing, cyanosis or edema Skin no rashes or lesions noted Neuro oriented x3, CN's II-XII intact bilaterally and moves all extremities Neuro Narrative: Bilateral symmetric wasting of first interosseous muscles. Coordination / Balance: [id number] test normal Speech: speech abnormal Gait (Neuro): normal gait Psych mental status grossly normal, thought process normal, cooperative and affect normal Debridement Note Debridement Note No debridement was completed: No debridement was completed today Post-Debridement Measurements and Additional Note: Post-Debridement Measurements/Treatment - Nurse 1 - General Ulcer Assessment Start: 03/27/23 09:10 Freq: Status: Active Protocol: BRANDAN Activity Type Activity Date Activity User E-sign Co-sign Detail Recorded Client Recorded Date Recorded By Document 03/27/23 09:11 [facility] [id number] 03/27/23 09:17 [facility] Document 04/03/23 08:38 [facility] [id number] 04/03/23 08:45 [facility] Document 04/10/23 08:36 [facility] [id number] 04/10/23 08:41 [facility] 03/27/23 04/03/23 04/10/23 09:11 08:38 08:36 - Today's Visit Information Type of service Follow-up Visit Follow-up Visit Follow-up Visit (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 (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 (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 ) ) ) Arrival Mode Ambulatory Ambulatory Ambulatory Transfer Assistance None None None Accompanied by daughter daughter Patient Identification Verified (Name & Yes Yes Yes ) Patient Requires Transmission-Based No No No Precautions Height and Weight Body Mass Index (BMI) 22.3 22.3 22.3 BMI Classification Normal Normal Normal Vital Signs Temperature (97.8 F-99.1 F) 97.9 F 97.9 F Temperature Source Temporal Temporal Pulse Rate (60-100) 64 70 79 Pulse Location Monitor Monitor Monitor Respiratory Rate (12-18) 16 16 16 Respiratory rate source Observation Observation Observation Oxygen Delivery Method Room Air Room Air Room Air Blood Pressure (90/60-120/80) 117/62 125/54 H 132/62 H Blood Pressure Mean (mm Hg) 80 77 85 Source Monitor Monitor Monitor Position Sitting Sitting Sitting Blood Pressure Location Left Arm Left Arm Left Arm History Since Last Visit- (Skip if this is Patient's initial visit) Have you changed medications since your No No No last visit? Any new allergies or adverse reactions No No No Had a fall/change in ADL's that may No No No increase risk of falls Signs or symptoms of abuse and/or No No No neglect since last visit Have you been in the hospital since your No No No last visit? Has dressing in place as prescribed Yes Yes Yes Has compression in place as prescribed N/A N/A N/A Has offloadiing in place as prescribed N/A N/A N/A Experienced any changes in pain level or No No No management Left Footwear Regular Shoe Regular Shoe Regular Shoe Right Footwear Regular Shoe Regular Shoe Regular Shoe Pain Scale: 0-10 Numeric Is Patient Pain Free? Yes Yes Yes WC - Nurse 1 - General Ulcer Measurement Start: 03/27/23 09:10 Freq: Status: Active Protocol: Activity Type Activity Date Activity User E-sign Co-sign Detail Recorded Client Recorded Date Recorded By Document 03/27/23 09:11 [facility] [id number] 03/27/23 09:17 [facility] Document 04/03/23 08:38 [facility] [id number] 04/03/23 08:45 [facility] Document 04/10/23 08:36 [facility] [id number] 04/10/23 08:41 [facility] 03/27/23 04/03/23 04/10/23 09:11 08:38 08:36 Wound Center Nurse 1 #1 Chin -Combined with other wound No No No -Current Size (cm) - Length 0.1 1.9 0.1 -Current Size (cm) - Width 0.1 1 0.1 -Current Size (cm) - Depth 0.1 0.1 0.1 -Total Square Cm 0.01 1.9 0.01 -Date of Last Picture (Recall this 03/27/23 04/03/23 04/10/23 field) -Photo Taken Yes Yes Yes -Epithelialization Large 67-100% None Present Large 67-100% -Tunneling No No No -Undermining/Tunneling No No No -Circular Undermining No No No -Exudate Amt Small Small -Exudate Type Serous Serous -Wound Margin Distinct, Flat & Intact Outline Attached -Granulation Amt Small (1-33%) -Granulation Quality [place] -Slough/Fibrin Yes -Necrosis Amt Large (67-100%) -Necrotic Tissue Type Adherent Slough -Texture (Candace-wound Skin Appearance) Assessed, Assessed, Assessed, Scarring Scarring Scarring -Moisture (Candace-wound Skin Appearance) Assessed,Dry/ Assessed,Dry/ Assessed Scaly Scaly -Color (Candace-wound Skin Appearance) Assessed Assessed Assessed -Temperature (Candace-wound Skin No Abnormality No Abnormality No Abnormality Appearance) (Pt Warm) (Pt Warm) (Pt Warm) -Tenderness on Palpation (Candace-wound No No No Skin Appearance) -Ulcer Cleansing Rinsed/ Rinsed/ Rinsed/ Irrigated with Irrigated with Irrigated with Saline Saline Saline -Foul Odor after Cleansing No No No -Anesthetic Used 5% Lidocaine 5% Lidocaine 5% Lidocaine Gel Gel Gel WC - Nurse 2 - General Ulcer CM Notes Start: 03/27/23 09:10 Freq: Status: Active Protocol: Activity Type Activity Date Activity User E-sign Co-sign Detail Recorded Client Recorded Date Recorded By Document 03/27/23 09:34 MW [id number] 03/27/23 09:36 MW Document 04/03/23 08:56 MW [id number] 04/03/23 08:59 MW Document 04/10/23 08:48 MW [id number] 04/10/23 08:51 MW 03/27/23 04/03/23 04/10/23 09:34 08:56 08:48 Wound Center Nurse 2 #1 Chin -Time 09:35 08:58 08:50 -Correct Patient Yes Yes Yes -Correct Side, Site, Position Yes Yes Yes -Correct Procedure Yes Yes Yes -Procedure Performed Yes Yes No -Type of Procedure Debridement Debridement -Clinical Debridement Subcutaneous Subcutaneous -Tissue Removed Subcutaneous Subcutaneous -Post Debridement (cm) - Length 1.8 2.0 0 -Post Debridement (cm) - Width 1.5 1.0 0 -Post Debridement (cm) - Depth 0.3 0.3 0 -Total Square (Post) (cm) 2.70 2.00 0 -Area of Debridement (cm) - Length 1.8 2.0 -Area of Debridement (cm) - Width 1.5 1.0 -Total Square (Area) (cm) 2.70 2.00 -Tunneling No No No -Undermining/Tunneling No No No -Circular Undermining No No No -Wound/Ulcer Outcome Not Healed Not Healed Healed- Epithelialized -Ulcer Cleansing Rinsed/ Rinsed/ Irrigated with Irrigated with Saline Saline -Foul Odor after Cleansing No No -Bioengineered Tissue No No -Bleeding Controlled with Pressure Pressure NA -Treatment Response Procedure Procedure Tolerated Well Tolerated Well -Offloading No No -Debridement - Subq, 1st 20sq cm Yes Yes Pain Scale: 0-10 Numeric Is Patient Pain Free? Yes Yes Yes - Nurse 3 - General Ulcer D/C NN Start: 03/27/23 09:10 Freq: Status: Active Protocol: Activity Type Activity Date Activity User E-sign Co-sign Detail Recorded Client Recorded Date Recorded By Document 03/27/23 09:40 MW [id number] 03/27/23 09:40 MW Document 04/03/23 08:59 MW [id number] 04/03/23 09:00 MW Document 04/10/23 08:51 MW [id number] 04/10/23 08:52 MW 03/27/23 04/03/23 04/10/23 09:40 08:59 08:51 Wound Care Center Nurse 3 #1 Chin -Ulcer Cleansing Rinsed/ Rinsed/ Irrigated with Irrigated with Saline Saline -Foul Odor after Cleansing No No -Negative Pressure Wound Therapy N/A N/A -Primary Dressing Applied Fibracol Plus Fibracol Plus 4x4 4x4 -Other Dressing bactroban ointment -Primary Dressing Covered/Secured with Dry Gauze, Dry Gauze, Dry Gauze, Secured with Secured with Secured with Tape Tape Tape -Fibracol Plus 4x4 1 1 Treatment Response Procedure Procedure Procedure Tolerated Well Tolerated Well Tolerated Well Pain Scale: 0-10 Numeric Is Patient Pain Free? Yes Yes Yes Teaching: Wound Center Discharge Instructions -Person Taught Patient,Family -Teaching Method Discussion -Response to teaching Verbalize understanding Dressing Your Wound -Person Taught Patient Patient,Family -Teaching Method Discussion Discussion, Demonstration -Response to teaching Verbalize Verbalize understanding understanding WC - Visit Discharge Discharge Condition Stable Stable Stable Ambulatory Status Ambulatory Ambulatory Ambulatory Transportation Private Auto Private Auto Private Auto Accompanied by self daughter daughter Medication Reconcilliation completed & No No No provided to patient/care provider Clinical Summary of Care Provided No Yes Yes Assessment/Plan Assessment/Plan (1) Head and neck cancer: CODE(S): C76.0 - Malignant neoplasm of head, face and neck (2) Delayed surgical wound healing: CODE(S): T81.89XA - Other complications of procedures, not elsewhere classified, initial encounter QUALIFIERS: Encounter type: initial encounter Qualified Code(s): T81.89XA - Other complications of procedures, not elsewhere classified, initial encounter PLAN: Wound cultures came back negative first time ever Patient has healed and will be discharged from the wound center he can follow- upas needed Daughter wants to cover it when he is outside working in the garden which is fine it is new skin but basically it is all healed Follow-up as needed (3) Nonhealing surgical wound: CODE(S): T81.89XA - Other complications of procedures, not elsewhere classified, initial encounter QUALIFIERS: Encounter type: initial encounter Qualified Code(s): T81.89XA - Other complications of procedures, not elsewhere classified, initial encounter (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 - Other specified disorders of the skin and subcutaneous tissue related to radiation; Y84.2 - Radiological procedure and radiotherapy as the cause of abnormal reaction of the patient, or of later complication, withoutmention of misadventure at the time of the procedure 04/10/23 1005 <Electronically signed by Joya Galvez NP [employer]> Cosigner Signature (if applicable): CC: ~ Signed [facility] Work Phone: 1(922) 283-780207-12-2023 Progress note Author Joya Galvez [facility] April 03, 2023 10:07am Note Date/Time April 03, 2023 9:51 am [facility] [address] [place] [address] Progress Note - Wound Care 04/03/23 0950 MR#: [id number] Acct: [id number] Name: MY JAMA Rep #:[id number] : 1960 62 From: Joya Galvez NP [employer] PCP: AYRI Pardo Status:REG RCR Location: History of Present Illness Date of Service: 04/03/23 Chief Complaint: 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 He received courses of chemotherapy followed by radiation treatments, which wereconcluded by the end of 2017. He recently underwent oral surgery and had 8 teeth extracted. Two extraction sites have failed to heal. On November 07, 2021, the patient underwent reconstruction of the jaw using bone from his left lower leg. 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 Progress of Wound: Every week so far it is improved and becoming more shallow. Using Bactroban and Fibracol at his work tremendously at healing his open wound. We will obtain cultures again. He finally is wearing the plug for the trach sohe can get it removed. I think that handling and hang touching causes the infections in his jaw. Would like to get that trach out of there and I think itis the problem with his healing. Subjective Subjective Daughter and patient are very pleased with outcomes and we will call with the culture results to them Objective Data Objective Data Healing well measurements are up a little bit better than last weeks but continue to be the same shallow and filling in nicely. Cultures obtained will call with the results Vital Signs: Vital Signs Temp Pulse Resp BP O2 Del Method 97.9 F 70 16 125/54 H Room Air 04/03/23 08:38 04/03/23 08:38 04/03/23 08:38 04/03/23 08:38 04/03/23 08:38 Oxygen Delivery Method Room Air Weight: 130 lb Body Mass Index (BMI) 22.3 Physical Exam Narrative ECOG 1 Hard of hearing Const alert, oriented x3 and no apparent distress General Appearance: cooperative and comfortable HEENT normocephalic HEENT Narrative: Reconstruction of the lower face, soft tissue edema Mouth: No thrush Eyes General Eye: normal appearance of both eyes Conjunctiva: conjunctiva normal Sclera: sclera normal Neck no lymphadenopathy and no JVD Neck Narrative: Postoperative changes and flap. Wound is covered with surgical dressing General: tracheostomy present Lymph Lymphatic: no lymphadenopathy noted Chest Chest: symmetrical chest wall rise Resp Auscultation: diminished lung sounds bilateral and diffuse Cardio regular rate and regular rhythm Jugular Venous Distention: Negative for JVD GI soft to palpation, non-tender and non-distended; Negative for hepatosplenomegaly GI Narrative: PEG tube Inspection: GI tube present no CVA tenderness Back/Spine no thoracic nor lumbar tenderness Extremity General Extremity: Negative for clubbing, cyanosis or edema Skin no rashes or lesions noted Neuro oriented x3, CN's II-XII intact bilaterally and moves all extremities Neuro Narrative: Bilateral symmetric wasting of first interosseous muscles. Coordination / Balance: [id number] test normal Speech: speech abnormal Gait (Neuro): normal gait Psych mental status grossly normal, thought process normal, cooperative and affect normal Debridement Note Debridement Note Wound debrided: Left jaw surgical nonhealing wound Type of Debridement: Excisional debridement Anesthesia Used: 5% Lidocaine Gel Depth: Down to and including healthy tissue and in the subcutaneous layer Percentage of wound debrided: 100 Instrument Used: 5mm curette Tissue Removed: Fibrin Severity: Limited To Skin Breakdown Amount of bleeding with debridement: Mild Bleeding Controlled with: Compression and gauze Patient tolerated procedure: Patient tolerated procedure well Post-Debridement Measurements and Additional Note: Post-Debridement Measurements/Treatment - Nurse 1 - General Ulcer Assessment Start: 03/27/23 09:10 Freq: Status: Active Protocol: BRANDAN Activity Type Activity Date Activity User E-sign Co-sign Detail Recorded Client Recorded Date Recorded By Document 03/27/23 09:11 [facility] [id number] 03/27/23 09:17 [facility] Document 04/03/23 08:38 [facility] [id number] 04/03/23 08:45 [facility] 03/27/23 04/03/23 09:11 08:38 - Today's Visit Information Type of service Follow-up Visit Follow-up Visit (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 (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 ) ) Arrival Mode Ambulatory Ambulatory Transfer Assistance None None Accompanied by daughter Patient Identification Verified (Name & Yes Yes ) Patient Requires Transmission-Based No No Precautions Height and Weight Body Mass Index (BMI) 22.3 22.3 BMI Classification Normal Normal Vital Signs Temperature (97.8 F-99.1 F) 97.9 F 97.9 F Temperature Source Temporal Temporal Pulse Rate (60-100) 64 70 Pulse Location Monitor Monitor Respiratory Rate (12-18) 16 16 Respiratory rate source Observation Observation Oxygen Delivery Method Room Air Room Air Blood Pressure (90/60-120/80) 117/62 125/54 H Blood Pressure Mean (mm Hg) 80 77 Source Monitor Monitor Position Sitting Sitting Blood Pressure Location Left Arm Left Arm History Since Last Visit- (Skip if this is Patient's initial visit) Have you changed medications since your No No last visit? Any new allergies or adverse reactions No No Had a fall/change in ADL's that may No No increase risk of falls Signs or symptoms of abuse and/or No No neglect since last visit Have you been in the hospital since your No No last visit? Has dressing in place as prescribed Yes Yes Has compression in place as prescribed N/A N/A Has offloadiing in place as prescribed N/A N/A Experienced any changes in pain level or No No management Left Footwear Regular Shoe Regular Shoe Right Footwear Regular Shoe Regular Shoe Pain Scale: 0-10 Numeric Is Patient Pain Free? Yes Yes WC - Nurse 1 - General Ulcer Measurement Start: 03/27/23 09:10 Freq: Status: Active Protocol: Activity Type Activity Date Activity User E-sign Co-sign Detail Recorded Client Recorded Date Recorded By Document 03/27/23 09:11 [facility] [id number] 03/27/23 09:17 [facility] Document 04/03/23 08:38 [facility] [id number] 04/03/23 08:45 [facility] 03/27/23 04/03/23 09:11 08:38 Wound Center Nurse 1 #1 Chin -Combined with other wound No No -Current Size (cm) - Length 0.1 1.9 -Current Size (cm) - Width 0.1 1 -Current Size (cm) - Depth 0.1 0.1 -Total Square Cm 0.01 1.9 -Date of Last Picture (Recall this 03/27/23 04/03/23 field) -Photo Taken Yes Yes -Epithelialization Large 67-100% None Present -Tunneling No No -Undermining/Tunneling No No -Circular Undermining No No -Exudate Amt Small -Exudate Type Serous -Wound Margin Distinct, Outline Attached -Granulation Amt Small (1-33%) -Granulation Quality [place] -Slough/Fibrin Yes -Necrosis Amt Large (67-100%) -Necrotic Tissue Type Adherent Slough -Texture (Candace-wound Skin Appearance) Assessed, Assessed, Scarring Scarring -Moisture (Candace-wound Skin Appearance) Assessed,Dry/ Assessed,Dry/ Scaly Scaly -Color (Candace-wound Skin Appearance) Assessed Assessed -Temperature (Candace-wound Skin No Abnormality No Abnormality Appearance) (Pt Warm) (Pt Warm) -Tenderness on Palpation (Candace-wound No No Skin Appearance) -Ulcer Cleansing Rinsed/ Rinsed/ Irrigated with Irrigated with Saline Saline -Foul Odor after Cleansing No No -Anesthetic Used 5% Lidocaine 5% Lidocaine Gel Gel WC - Nurse 2 - General Ulcer CM Notes Start: 03/27/23 09:10 Freq: Status: Active Protocol: Activity Type Activity Date Activity User E-sign Co-sign Detail Recorded Client Recorded Date Recorded By Document 03/27/23 09:34 MW [id number] 03/27/23 09:36 MW Document 04/03/23 08:56 MW [id number] 04/03/23 08:59 MW 03/27/23 04/03/23 09:34 08:56 Wound Center Nurse 2 #1 Chin -Time 09:35 08:58 -Correct Patient Yes Yes -Correct Side, Site, Position Yes Yes -Correct Procedure Yes Yes -Procedure Performed Yes Yes -Type of Procedure Debridement Debridement -Clinical Debridement Subcutaneous Subcutaneous -Tissue Removed Subcutaneous Subcutaneous -Post Debridement (cm) - Length 1.8 2.0 -Post Debridement (cm) - Width 1.5 1.0 -Post Debridement (cm) - Depth 0.3 0.3 -Total Square (Post) (cm) 2.70 2.00 -Area of Debridement (cm) - Length 1.8 2.0 -Area of Debridement (cm) - Width 1.5 1.0 -Total Square (Area) (cm) 2.70 2.00 -Tunneling No No -Undermining/Tunneling No No -Circular Undermining No No -Wound/Ulcer Outcome Not Healed Not Healed -Ulcer Cleansing Rinsed/ Rinsed/ Irrigated with Irrigated with Saline Saline -Foul Odor after Cleansing No No -Bioengineered Tissue No No -Bleeding Controlled with Pressure Pressure -Treatment Response Procedure Procedure Tolerated Well Tolerated Well -Offloading No No -Debridement - Subq, 1st 20sq cm Yes Yes Pain Scale: 0-10 Numeric Is Patient Pain Free? Yes Yes - Nurse 3 - General Ulcer D/C NN Start: 03/27/23 09:10 Freq: Status: Active Protocol: Activity Type Activity Date Activity User E-sign Co-sign Detail Recorded Client Recorded Date Recorded By Document 03/27/23 09:40 MW [id number] 03/27/23 09:40 MW Document 04/03/23 08:59 MW [id number] 04/03/23 09:00 MW 03/27/23 04/03/23 09:40 08:59 Wound Care Center Nurse 3 #1 Chin -Ulcer Cleansing Rinsed/ Rinsed/ Irrigated with Irrigated with Saline Saline -Foul Odor after Cleansing No No -Negative Pressure Wound Therapy N/A N/A -Primary Dressing Applied Fibracol Plus Fibracol Plus 4x4 4x4 -Other Dressing bactroban ointment -Primary Dressing Covered/Secured with Dry Gauze, Dry Gauze, Secured with Secured with Tape Tape -Fibracol Plus 4x4 1 1 Treatment Response Procedure Procedure Tolerated Well Tolerated Well Pain Scale: 0-10 Numeric Is Patient Pain Free? Yes Yes Teaching: Wound Center Dressing Your Wound -Person Taught Patient Patient,Family -Teaching Method Discussion Discussion, Demonstration -Response to teaching Verbalize Verbalize understanding understanding WC - Visit Discharge Discharge Condition Stable Stable Ambulatory Status Ambulatory Ambulatory Transportation Private Auto Private Auto Accompanied by self daughter Medication Reconcilliation completed & No No provided to patient/care provider Clinical Summary of Care Provided No Yes Assessment/Plan Assessment/Plan (1) Head and neck cancer: CODE(S): C76.0 - Malignant neoplasm of head, face and neck (2) Delayed surgical wound healing: CODE(S): T81.89XA - Other complications of procedures, not elsewhere classified, initial encounter QUALIFIERS: Encounter type: initial encounter Qualified Code(s): T81.89XA - Other complications of procedures, not elsewhere classified, initial encounter PLAN: Wash area with antibacterial soap and apply Bactroban to wound base nickelthickness then place fibrocol moistened cover with gauze and paper tape daily dressings Cultures obtained will call with results Follow-up in 1 week (3) Nonhealing surgical wound: CODE(S): T81.89XA - Other complications of procedures, not elsewhere classified, initial encounter QUALIFIERS: Encounter type: initial encounter Qualified Code(s): T81.89XA - Other complications of procedures, not elsewhere classified, initial encounter (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 - Other specified disorders of the skin and subcutaneous tissue related to radiation; Y84.2 - Radiological procedure and radiotherapy as the cause of abnormal reaction of the patient, or of later complication, withoutmention of misadventure at the time of the procedure 04/03/23 1007 <Electronically signed by Joya Galvez NP [employer]-C> Cosigner Signature (if applicable): CC: ~ Signed [facility] Work Phone: 1(616) 841-202207-05-2023 Progress note Author Joya Galvez [facility] March 27, 2023 12:15pm Note Date/Time March 27, 2023 12:15 pm [facility] [address] [place] [id number] Progress Note - Wound Care 03/27/23 1212 MR#: [id number] Acct: [id number] Name: MY JAMA Rep #:[id number] : 1960 62 From: Joya Galvez NP, NP-C PCP: YARI Pardo Status:REG RCR Location: History of Present Illness Date of Service: 03/27/23 Chief Complaint: 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 He received courses of chemotherapy followed by radiation treatments, which wereconcluded by the end of 2017. He recently underwent oral surgery and had 8 teeth extracted. Two extraction sites have failed to heal. On November 07, 2021, the patient underwent reconstruction of the jaw using bone from his left lower leg. 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 Progress of Wound: Every week so far it is improved and becoming more shallow. Using Bactroban and Fibracol at his work tremendously at healing his open wound. Subjective Subjective Patient is very pleased with the outcomes Objective Data Objective Data Continues to measure smaller and become more shallow Vital Signs: Vital Signs Temp Pulse Resp BP O2 Del Method 97.9 F 64 16 117/62 Room Air 03/27/23 09:11 03/27/23 09:11 03/27/23 09:11 03/27/23 09:11 03/27/23 09:11 Oxygen Delivery Method Room Air Weight: 130 lb Body Mass Index (BMI) 22.3 Lab / Micro Data Attestation: I reviewed the patient's lab results. Physical Exam Narrative ECOG 1 Hard of hearing Const alert, oriented x3 and no apparent distress General Appearance: cooperative and comfortable HEENT normocephalic HEENT Narrative: Reconstruction of the lower face, soft tissue edema Mouth: No thrush Eyes General Eye: normal appearance of both eyes Conjunctiva: conjunctiva normal Sclera: sclera normal Neck no lymphadenopathy and no JVD Neck Narrative: Postoperative changes and flap. Wound is covered with surgical dressing General: tracheostomy present Lymph Lymphatic: no lymphadenopathy noted Chest Chest: symmetrical chest wall rise Resp Auscultation: diminished lung sounds bilateral and diffuse Cardio regular rate and regular rhythm Jugular Venous Distention: Negative for JVD GI soft to palpation, non-tender and non-distended; Negative for hepatosplenomegaly GI Narrative: PEG tube Inspection: GI tube present no CVA tenderness Back/Spine no thoracic nor lumbar tenderness Extremity General Extremity: Negative for clubbing, cyanosis or edema Skin no rashes or lesions noted Neuro oriented x3, CN's II-XII intact bilaterally and moves all extremities Neuro Narrative: Bilateral symmetric wasting of first interosseous muscles. Coordination / Balance: [id number]-[id number] test normal Speech: speech abnormal Gait (Neuro): normal gait Psych mental status grossly normal, thought process normal, cooperative and affect normal Debridement Note Debridement Note Wound debrided: Left jaw surgical nonhealing Type of Debridement: Excisional debridement Anesthesia Used: 5% Lidocaine Gel Depth: Down to and including healthy tissue Percentage of wound debrided: 100 Instrument Used: 5mm curette Tissue Removed: Slough fibrin Severity: Limited To Skin Breakdown Amount of bleeding with debridement: Mild Bleeding Controlled with: Compression and gauze Patient tolerated procedure: Patient tolerated procedure well Post-Debridement Measurements and Additional Note: Post-Debridement Measurements/Treatment WC - Nurse 1 - General Ulcer Assessment Start: 03/27/23 09:10 Freq: Status: Active Protocol: BRANDAN Activity Type Activity Date Activity User E-sign Co-sign Detail Recorded Client Recorded Date Recorded By Document 03/27/23 09:11 [facility] [id number] 03/27/23 09:17 [facility] 03/27/23 09:11 WC - Today's Visit Information Type of service Follow-up Visit (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 ) Arrival Mode Ambulatory Transfer Assistance None Patient Identification Verified (Name & Yes ) Patient Requires Transmission-Based No Precautions Height and Weight Body Mass Index (BMI) 22.3 BMI Classification Normal Vital Signs Temperature (97.8 F-99.1 F) 97.9 F Temperature Source Temporal Pulse Rate (60-100) 64 Pulse Location Monitor Respiratory Rate (12-18) 16 Respiratory rate source Observation Oxygen Delivery Method Room Air Blood Pressure (90/60-120/80) 117/62 Blood Pressure Mean (mm Hg) 80 Source Monitor Position Sitting Blood Pressure Location Left Arm History Since Last Visit- (Skip if this is Patient's initial visit) Have you changed medications since your No last visit? Any new allergies or adverse reactions No Had a fall/change in ADL's that may No increase risk of falls Signs or symptoms of abuse and/or No neglect since last visit Have you been in the hospital since your No last visit? Has dressing in place as prescribed Yes Has compression in place as prescribed N/A Has offloadiing in place as prescribed N/A Experienced any changes in pain level or No management Left Footwear Regular Shoe Right Footwear Regular Shoe Pain Scale: 0-10 Numeric Is Patient Pain Free? Yes - Nurse 1 - General Ulcer Measurement Start: 03/27/23 09:10 Freq: Status: Active Protocol: Activity Type Activity Date Activity User E-sign Co-sign Detail Recorded Client Recorded Date Recorded By Document 03/27/23 09:11 [facility] [id number] 03/27/23 09:17 [facility] 03/27/23 09:11 Wound Center Nurse 1 #1 Chin -Combined with other wound No -Current Size (cm) - Length 0.1 -Current Size (cm) - Width 0.1 -Current Size (cm) - Depth 0.1 -Total Square Cm 0.01 -Date of Last Picture (Recall this 03/27/23 field) -Photo Taken Yes -Epithelialization Large 67-100% -Tunneling No -Undermining/Tunneling No -Circular Undermining No -Texture (Candace-wound Skin Appearance) Assessed, Scarring -Moisture (Candace-wound Skin Appearance) Assessed,Dry/ Scaly -Color (Candace-wound Skin Appearance) Assessed -Temperature (Candace-wound Skin No Abnormality Appearance) (Pt Warm) -Tenderness on Palpation (Candace-wound No Skin Appearance) -Ulcer Cleansing Rinsed/ Irrigated with Saline -Foul Odor after Cleansing No -Anesthetic Used 5% Lidocaine Gel WC - Nurse 2 - General Ulcer CM Notes Start: 03/27/23 09:10 Freq: Status: Active Protocol: Activity Type Activity Date Activity User E-sign Co-sign Detail Recorded Client Recorded Date Recorded By Document 03/27/23 09:34 MW [id number] 03/27/23 09:36 MW 03/27/23 09:34 Wound Center Nurse 2 -Time 09:35 -Correct Patient Yes -Correct Side, Site, Position Yes -Correct Procedure Yes -Procedure Performed Yes -Type of Procedure Debridement -Clinical Debridement Subcutaneous -Tissue Removed Subcutaneous -Post Debridement (cm) - Length 1.8 -Post Debridement (cm) - Width 1.5 -Post Debridement (cm) - Depth 0.3 -Total Square (Post) (cm) 2.70 -Area of Debridement (cm) - Length 1.8 -Area of Debridement (cm) - Width 1.5 -Total Square (Area) (cm) 2.70 -Tunneling No -Undermining/Tunneling No -Circular Undermining No -Wound/Ulcer Outcome Not Healed -Ulcer Cleansing Rinsed/ Irrigated with Saline -Foul Odor after Cleansing No -Bioengineered Tissue No -Bleeding Controlled with Pressure -Treatment Response Procedure Tolerated Well -Offloading No -Debridement - Subq, 1st 20sq cm Yes Pain Scale: 0-10 Numeric Is Patient Pain Free? Yes DHAVAL - Nurse 3 - General Ulcer D/C NN Start: 03/27/23 09:10 Freq: Status: Active Protocol: Activity Type Activity Date Activity User E-sign Co-sign Detail Recorded Client Recorded Date Recorded By Document 03/27/23 09:40 MW [id number] 03/27/23 09:40 MW 03/27/23 09:40 Wound Care Center Nurse 3 #1 Chin -Ulcer Cleansing Rinsed/ Irrigated with Saline -Foul Odor after Cleansing No -Negative Pressure Wound Therapy N/A -Primary Dressing Applied Fibracol Plus 4x4 -Primary Dressing Covered/Secured with Dry Gauze, Secured with Tape -Fibracol Plus 4x4 1 Treatment Response Procedure Tolerated Well Pain Scale: 0-10 Numeric Is Patient Pain Free? Yes Teaching: Wound Center Dressing Your Wound -Person Taught Patient -Teaching Method Discussion -Response to teaching Verbalize understanding WC - Visit Discharge Discharge Condition Stable Ambulatory Status Ambulatory Transportation Private Auto Accompanied by self Medication Reconcilliation completed & No provided to patient/care provider Clinical Summary of Care Provided No Assessment/Plan Assessment/Plan (1) Head and neck cancer: CODE(S): C76.0 - Malignant neoplasm of head, face and neck (2) Delayed surgical wound healing: CODE(S): T81.89XA - Other complications of procedures, not elsewhere classified, initial encounter QUALIFIERS: Encounter type: initial encounter Qualified Code(s): T81.89XA - Other complications of procedures, not elsewhere classified, initial encounter PLAN: Wash area with antibacterial soap and apply Bactroban to wound base nickelthickness then place fibrocol moistened cover with gauze and paper tape daily dressings Follow-up in 1 week (3) Nonhealing surgical wound: CODE(S): T81.89XA - Other complications of procedures, not elsewhere classified, initial encounter QUALIFIERS: Encounter type: initial encounter Qualified Code(s): T81.89XA - Other complications of procedures, not elsewhere classified, initial encounter (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 - Other specified disorders of the skin and subcutaneous tissue related to radiation; Y84.2 - Radiological procedure and radiotherapy as the cause of abnormal reaction of the patient, or of later complication, withoutmention of misadventure at the time of the procedure 03/27/23 1210 <Electronically signed by Joya Galvez NP [employer]> Cosigner Signature (if applicable): CC: ~ Signed [facility] Work Phone: 1(305) 654-907606-28-2023 Progress note Author Joya Galvez [facility] March 20, 2023 11:22am Note Date/Time March 20, 2023 11:2 2am [facility] [address] [place] [address] Progress Note - Wound Care 03/20/23 1119 MR#: [id number] Acct: [id number] Name: MY JAMA Rep #:[id number] : 1960 62 From: Joya Galvez NP [employer]-C PCP: Kya Gonzalez NP-C Status:REG RCR Location: History of Present Illness Date of Service: 03/20/23 Chief Complaint: 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 He received courses of chemotherapy followed by radiation treatments, which wereconcluded by the end of 2017. He recently underwent oral surgery and had 8 teeth extracted. Two extraction sites have failed to heal. On November 07, 2021, the patient underwent reconstruction of the jaw using bone from his left lower leg. 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 Progress of Wound: Again measurements are measuring well matter on the jaw much improved with Bactroban and the Fibracol. Subjective Subjective Patient is very pleased with outcomes Objective Data Objective Data We will continue same treatment and probably culture next week because he alwaysseems to grow something in that jaw. Vital Signs: Vital Signs Temp Pulse Resp BP O2 Del Method 97.7 F L 62 16 113/62 Room Air 03/13/23 09:28 03/20/23 09:07 03/20/23 09:07 03/20/23 09:07 03/20/23 09:07 Oxygen Delivery Method Room Air Weight: 130 lb Body Mass Index (BMI) 22.3 Lab / Micro Data Attestation: I reviewed the patient's lab results. Physical Exam Narrative ECOG 1 Hard of hearing Const alert, oriented x3 and no apparent distress General Appearance: cooperative and comfortable HEENT normocephalic HEENT Narrative: Reconstruction of the lower face, soft tissue edema Mouth: No thrush Eyes General Eye: normal appearance of both eyes Conjunctiva: conjunctiva normal Sclera: sclera normal Neck no lymphadenopathy and no JVD Neck Narrative: Postoperative changes and flap. Wound is covered with surgical dressing General: tracheostomy present Lymph Lymphatic: no lymphadenopathy noted Chest Chest: symmetrical chest wall rise Resp Auscultation: diminished lung sounds bilateral and diffuse Cardio regular rate and regular rhythm Jugular Venous Distention: Negative for JVD GI soft to palpation, non-tender and non-distended; Negative for hepatosplenomegaly GI Narrative: PEG tube Inspection: GI tube present no CVA tenderness Back/Spine no thoracic nor lumbar tenderness Extremity General Extremity: Negative for clubbing, cyanosis or edema Skin no rashes or lesions noted Neuro oriented x3, CN's II-XII intact bilaterally and moves all extremities Neuro Narrative: Bilateral symmetric wasting of first interosseous muscles. Coordination / Balance: xxwvyq-[id number]-hycv test normal Speech: speech abnormal Gait (Neuro): normal gait Psych mental status grossly normal, thought process normal, cooperative and affect normal Debridement Note Debridement Note Wound debrided: Left jaw open wound surgical nonhealing from cancer Laterality: Left Type of Debridement: Excisional debridement Anesthesia Used: 5% Lidocaine Gel Depth: Down to and including healthy tissue Percentage of wound debrided: 100 Instrument Used: 5mm curette Tissue Removed: Fibrin Severity: Limited To Skin Breakdown Amount of bleeding with debridement: Mild Bleeding Controlled with: Compression and gauze Patient tolerated procedure: Patient tolerated procedure well Post-Debridement Measurements and Additional Note: Post-Debridement Measurements/Treatment - Nurse 1 - General Ulcer Assessment Start: 02/27/23 09:26 Freq: Status: Active Protocol: [email or web address] Activity Type Activity Date Activity User E-sign Co-sign Detail Recorded Client Recorded Date Recorded By Document 02/27/23 10:23 NM [id number] 02/27/23 10:25 NM Document 03/06/23 11:03 [facility] [id number] 03/06/23 11:07 [facility] Document 03/13/23 09:28 [facility] [id number] 03/13/23 09:33 [facility] Document 03/20/23 09:07 [facility] [id number] 03/20/23 09:08 [facility] 02/27/23 03/06/23 03/13/23 10:23 11:03 09:28 - Today's Visit Information Type of service Follow-up Visit Follow-up Visit Follow-up Visit (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 (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 (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 ) ) ) Arrival Mode Ambulatory Ambulatory Ambulatory Transfer Assistance None None Accompanied by NATALIE Patient Identification Verified (Name & No Yes Yes ) Patient Requires Transmission-Based No No No Precautions Height and Weight Body Mass Index (BMI) 22.3 22.3 22.3 BMI Classification Normal Normal Normal Vital Signs Temperature (97.8 F-99.1 F) 97.3 F L 97.3 F L 97.7 F L Temperature Source Temporal Temporal Temporal Pulse Rate (60-100) 71 63 66 Pulse Location Monitor Monitor Monitor Respiratory Rate (12-18) 16 16 Respiratory rate source Observation Observation Oxygen Delivery Method Room Air Room Air Blood Pressure (90/60-120/80) 106/64 138/69 H 121/51 H Blood Pressure Mean (mm Hg) 78 92 74 Source Monitor Monitor Monitor Position Sitting Sitting Blood Pressure Location Left Arm Left Arm History Since Last Visit- (Skip if this is Patient's initial visit) Have you changed medications since your No No No last visit? Any new allergies or adverse reactions No No No Had a fall/change in ADL's that may No No No increase risk of falls Signs or symptoms of abuse and/or No No No neglect since last visit Have you been in the hospital since your No No No last visit? Has dressing in place as prescribed Yes Yes Yes Has compression in place as prescribed N/A N/A N/A Has offloadiing in place as prescribed N/A N/A N/A Experienced any changes in pain level or No No No management Left Footwear Regular Shoe Regular Shoe Regular Shoe Right Footwear Regular Shoe Regular Shoe Regular Shoe Pain Scale: 0-10 Numeric Is Patient Pain Free? Yes Yes Yes 03/20/23 09:07 - Today's Visit Information Type of service Follow-up Visit (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 ) Arrival Mode Ambulatory Transfer Assistance None Accompanied by Patient Identification Verified (Name & Yes ) Patient Requires Transmission-Based No Precautions Height and Weight Body Mass Index (BMI) 22.3 BMI Classification Normal Vital Signs Temperature (97.8 F-99.1 F) Temperature Source Pulse Rate (60-100) 62 Pulse Location Monitor Respiratory Rate (12-18) 16 Respiratory rate source Observation Oxygen Delivery Method Room Air Blood Pressure (90/60-120/80) 113/62 Blood Pressure Mean (mm Hg) 79 Source Monitor Position Sitting Blood Pressure Location Left Arm History Since Last Visit- (Skip if this is Patient's initial visit) Have you changed medications since your No last visit? Any new allergies or adverse reactions No Had a fall/change in ADL's that may No increase risk of falls Signs or symptoms of abuse and/or No neglect since last visit Have you been in the hospital since your No last visit? Has dressing in place as prescribed Yes Has compression in place as prescribed N/A Has offloadiing in place as prescribed N/A Experienced any changes in pain level or No management Left Footwear Regular Shoe Right Footwear Regular Shoe Pain Scale: 0-10 Numeric Is Patient Pain Free? Yes WC - Nurse 1 - General Ulcer Measurement Start: 02/27/23 09:26 Freq: Status: Active Protocol: Activity Type Activity Date Activity User E-sign Co-sign Detail Recorded Client Recorded Date Recorded By Document 02/27/23 10:23 NM [id number] 02/27/23 10:25 NM Document 03/06/23 11:03 [facility] [id number] 03/06/23 11:07 [facility] Document 03/13/23 09:28 [facility] [id number] 03/13/23 09:33 [facility] Document 03/20/23 09:07 [facility] [id number] 03/20/23 09:08 BMF 02/27/23 03/06/23 03/13/23 10:23 11:03 09:28 Wound Center Nurse 1 #1 Chin -Combined with other wound No No No -Current Size (cm) - Length 2 1.9 3 -Current Size (cm) - Width 1.5 1.8 1.5 -Current Size (cm) - Depth 0.1 0.1 0.1 -Total Square Cm 3.0 3.42 4.5 -Date of Last Picture (Recall this 03/06/23 03/13/23 field) -Photo Taken Yes Yes Yes -Epithelialization Small 1-33% Small 1-33% -Tunneling No No No -Undermining/Tunneling No No No -Circular Undermining No No No -Change in Wound Grade/Stage No -Exudate Amt Large Medium Small -Exudate Type Yellow/Green Serosanguineous Serous -Wound Margin Distinct, Distinct, Flat & Intact Outline Outline Attached Attached -Granulation Amt Small (1-33%) Small (1-33%) Small (1-33%) -Granulation Quality Pale,Thibodaux Red Thibodaux -Slough/Fibrin Yes Yes Yes -Necrosis Amt Large (67-100%) Large (67-100%) Large (67-100%) -Necrotic Tissue Type Adherent Slough Adherent Slough Adherent Slough -Structure Exposed N/A -Texture (Candace-wound Skin Appearance) No Abnormality, Assessed, Assessed, Assessed Scarring Scarring -Moisture (Candace-wound Skin Appearance) No Abnormality, Assessed Assessed Assessed -Color (Candace-wound Skin Appearance) No Abnormality, Assessed Assessed Assessed -Temperature (Candace-wound Skin No Abnormality No Abnormality No Abnormality Appearance) (Pt Warm) (Pt Warm) (Pt Warm) -Tenderness on Palpation (Candace-wound No No No Skin Appearance) -Ulcer Cleansing Rinsed/ Rinsed/ Irrigated with Irrigated with Saline Saline -Foul Odor after Cleansing No Yes, Due to No Product Use -Anesthetic Used 4% Lidocaine 5% Lidocaine 5% Lidocaine Solution Gel Gel 03/20/23 09:07 Wound Center Nurse 1 #1 Chin -Combined with other wound No -Current Size (cm) - Length 1.8 -Current Size (cm) - Width 1.7 -Current Size (cm) - Depth 0.1 -Total Square Cm 3.06 -Date of Last Picture (Recall this 03/20/23 field) -Photo Taken Yes -Epithelialization Small 1-33% -Tunneling No -Undermining/Tunneling No -Circular Undermining No -Change in Wound Grade/Stage -Exudate Amt Small -Exudate Type Serous -Wound Margin Flat & Intact -Granulation Amt Medium (34-66%) -Granulation Quality Thibodaux -Slough/Fibrin Yes -Necrosis Amt Medium (34-66%) -Necrotic Tissue Type Adherent Slough -Structure Exposed -Texture (Candace-wound Skin Appearance) Assessed, Scarring -Moisture (Candace-wound Skin Appearance) Assessed -Color (Candace-wound Skin Appearance) Assessed -Temperature (Candace-wound Skin No Abnormality Appearance) (Pt Warm) -Tenderness on Palpation (Candace-wound No Skin Appearance) -Ulcer Cleansing Rinsed/ Irrigated with Saline -Foul Odor after Cleansing No -Anesthetic Used 5% Lidocaine Gel WC - Nurse 2 - General Ulcer CM Notes Start: 02/27/23 09:26 Freq: Status: Active Protocol: Activity Type Activity Date Activity User E-sign Co-sign Detail Recorded Client Recorded Date Recorded By Document 02/27/23 09:27 MW Desktop 02/27/23 09:27 MW Document 03/06/23 11:10 MW [id number] 03/06/23 11:25 MW Document 03/13/23 09:49 MW [id number] 03/13/23 09:50 MW 02/27/23 03/06/23 03/13/23 09:27 11:10 09:49 Wound Center Nurse 2 #1 Chin -Time 09: 11:10 09:50 -Correct Patient Yes Yes Yes -Correct Side, Site, Position Yes Yes Yes -Correct Procedure Yes Yes Yes -Procedure Performed Yes Yes Yes -Type of Procedure Debridement Debridement Debridement -Clinical Debridement Subcutaneous Subcutaneous Subcutaneous -Tissue Removed Subcutaneous Subcutaneous Subcutaneous -Post Debridement (cm) - Length 2.0 2.5 2.5 -Post Debridement (cm) - Width 1.8 1.5 2.0 -Post Debridement (cm) - Depth 0.4 0.3 0.3 -Total Square (Post) (cm) 3.60 3.75 5.00 -Area of Debridement (cm) - Length 2.0 2.5 2.5 -Area of Debridement (cm) - Width 1.8 1.5 2.0 -Total Square (Area) (cm) 3.60 3.75 5.00 -Tunneling No No No -Undermining/Tunneling No No No -Circular Undermining No No No -Wound/Ulcer Outcome Not Healed Not Healed Not Healed -Ulcer Cleansing Rinsed/ Rinsed/ Rinsed/ Irrigated with Irrigated with Irrigated with Saline Saline Saline -Foul Odor after Cleansing No No No -Bioengineered Tissue No No No -Bleeding Controlled with Pressure Pressure Pressure -Treatment Response Procedure Procedure Procedure Tolerated Well Tolerated Well Tolerated Well -Offloading No No No -Debridement - Subq, 1st 20sq cm Yes Yes Yes Pain Scale: 0-10 Numeric Is Patient Pain Free? Yes Yes Yes DHAVAL - Nurse 3 - General Ulcer D/C NN Start: 02/27/23 09:26 Freq: Status: Active Protocol: Activity Type Activity Date Activity User E-sign Co-sign Detail Recorded Client Recorded Date Recorded By Document 02/27/23 09:30 MW Desktop 02/27/23 09:31 MW Document 03/06/23 11:20 MW [id number] 03/06/23 11:29 MW Document 03/13/23 09:55 MW [id number] 03/13/23 09:56 MW Document 03/20/23 11:08 AK [id number] 03/20/23 11:09 AK 02/27/23 03/06/23 03/13/23 09:30 11:20 09:55 Wound Care Center Nurse 3 #1 Chin -Ulcer Cleansing Rinsed/ Rinsed/ Rinsed/ Irrigated with Irrigated with Irrigated with Saline Saline Saline -Foul Odor after Cleansing No No No -Negative Pressure Wound Therapy N/A N/A -Primary Dressing Applied Promogran Fibracol Plus Fibracol Plus Swetha Matter 4x4 4x4 -Other Dressing bactroban bactroban -Primary Dressing Covered/Secured with Dry Gauze, Dry Gauze, Dry Gauze, Secured with Secured with Secured with Tape Tape Tape -Other Covering silicone tape -Fibracol Plus 4x4 1 1 -Promogran Swetha Matter 1 Treatment Response Procedure Procedure Procedure Tolerated Well Tolerated Well Tolerated Well Pain Scale: 0-10 Numeric Is Patient Pain Free? Yes Yes Yes Teaching: Wound Center Dressing Your Wound -Person Taught Patient -Teaching Method Discussion, Demonstration -Response to teaching Verbalize understanding WC - Visit Discharge Discharge Condition Stable Stable Stable Ambulatory Status Ambulatory Ambulatory Ambulatory Transportation Private Auto Private Auto Private Auto Accompanied by self self natalie Medication Reconcilliation completed & No No provided to patient/care provider Clinical Summary of Care Provided Yes Yes 03/20/23 11:08 Wound Care Center Nurse 3 #1 Chin -Ulcer Cleansing Rinsed/ Irrigated with Saline -Foul Odor after Cleansing No -Negative Pressure Wound Therapy N/A -Primary Dressing Applied Fibracol Plus 4x4 -Other Dressing bactraban -Primary Dressing Covered/Secured with Dry Gauze, Secured with Tape -Other Covering -Fibracol Plus 4x4 1 -Promogran Swetha Matter Treatment Response Pain Scale: 0-10 Numeric Is Patient Pain Free? Yes Teaching: Wound Center Dressing Your Wound -Person Taught -Teaching Method -Response to teaching WC - Visit Discharge Discharge Condition Stable Ambulatory Status Ambulatory Transportation Private Auto Accompanied by Medication Reconcilliation completed & Yes provided to patient/care provider Clinical Summary of Care Provided Yes Assessment/Plan Assessment/Plan (1) Head and neck cancer: CODE(S): C76.0 - Malignant neoplasm of head, face and neck (2) Delayed surgical wound healing: CODE(S): T81.89XA - Other complications of procedures, not elsewhere classified, initial encounter QUALIFIERS: Encounter type: initial encounter Qualified Code(s): T81.89XA - Other complications of procedures, not elsewhere classified, initial encounter PLAN: Wash area with antibacterial soap and apply Bactroban to wound base nickelthickness then place fibrocol moistened cover with gauze and paper tape daily dressings Follow-up in 1 week (3) Nonhealing surgical wound: CODE(S): T81.89XA - Other complications of procedures, not elsewhere classified, initial encounter QUALIFIERS: Encounter type: initial encounter Qualified Code(s): T81.89XA - Other complications of procedures, not elsewhere classified, initial encounter (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 - Other specified disorders of the skin and subcutaneous tissue related to radiation; Y84.2 - Radiological procedure and radiotherapy as the cause of abnormal reaction of the patient, or of later complication, withoutmention of misadventure at the time of the procedure 03/20/23 1122 <Electronically signed by Joya Galvez NP [employer]> Cosigner Signature (if applicable): CC: ~ Signed [facility] Work Phone: 1(281) 201-687206-21-2023 Progress note Author Joya Galvez [facility] March 13, 2023 11:25am Note Date/Time March 13, 2023 11:2 5am [facility] [address] [place] [id number] Progress Note - Wound Care 03/13/23 1123 MR#: [id number] Acct: [id number] Name: MY JAMA Rep #:[id number] : 1960 62 From: Joya Galvez NP [employer] PCP: YARI Pardo Status:REG RCR Location: History of Present Illness Date of Service: 03/13/23 Chief Complaint: 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 He received courses of chemotherapy followed by radiation treatments, which wereconcluded by the end of 2017. He recently underwent oral surgery and had 8 teeth extracted. Two extraction sites have failed to heal. On November 07, 2021, the patient underwent reconstruction of the jaw using bone from his left lower leg. 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 Progress of Wound: Again measurements are measuring smaller on the jaw much improved with Bactrobanand the Fibracol. Subjective Subjective Daughter and patient very happy with outcomes Objective Data Objective Data Again measuring smaller more shallow doing very well no sign of infection noted Vital Signs: Vital Signs Temp Pulse Resp BP O2 Del Method 97.7 F L 66 16 121/51 H Room Air 03/13/23 09:28 03/13/23 09:28 03/13/23 09:28 03/13/23 09:28 03/13/23 09:28 Oxygen Delivery Method Room Air Weight: 130 lb Body Mass Index (BMI) 22.3 Physical Exam Narrative ECOG 1 Hard of hearing Const alert, oriented x3 and no apparent distress General Appearance: cooperative and comfortable HEENT normocephalic HEENT Narrative: Reconstruction of the lower face, soft tissue edema Mouth: No thrush Eyes General Eye: normal appearance of both eyes Conjunctiva: conjunctiva normal Sclera: sclera normal Neck no lymphadenopathy and no JVD Neck Narrative: Postoperative changes and flap. Wound is covered with surgical dressing General: tracheostomy present Lymph Lymphatic: no lymphadenopathy noted Chest Chest: symmetrical chest wall rise Resp Auscultation: diminished lung sounds bilateral and diffuse Cardio regular rate and regular rhythm Jugular Venous Distention: Negative for JVD GI soft to palpation, non-tender and non-distended; Negative for hepatosplenomegaly GI Narrative: PEG tube Inspection: GI tube present no CVA tenderness Back/Spine no thoracic nor lumbar tenderness Extremity General Extremity: Negative for clubbing, cyanosis or edema Skin no rashes or lesions noted Neuro oriented x3, CN's II-XII intact bilaterally and moves all extremities Neuro Narrative: Bilateral symmetric wasting of first interosseous muscles. Coordination / Balance: [id number] test normal Speech: speech abnormal Gait (Neuro): normal gait Psych mental status grossly normal, thought process normal, cooperative and affect normal Debridement Note Debridement Note Wound debrided: Left jaw status post nonhealing surgical wound from cancer Laterality: Left Type of Debridement: Excisional debridement Anesthesia Used: 5% Lidocaine Gel Depth: Down to and including healthy tissue Percentage of wound debrided: 100 Instrument Used: 5mm curette Tissue Removed: Fibrin Severity: Limited To Skin Breakdown Amount of bleeding with debridement: Mild Bleeding Controlled with: Compression and gauze Patient tolerated procedure: Patient tolerated procedure well Post-Debridement Measurements and Additional Note: Post-Debridement Measurements/Treatment - Nurse 1 - General Ulcer Assessment Start: 02/27/23 09:26 Freq: Status: Active Protocol: DHAVALMotorpaneerFRANK Activity Type Activity Date Activity User E-sign Co-sign Detail Recorded Client Recorded Date Recorded By Document 02/27/23 10:23 NM [id number] 02/27/23 10:25 NM Document 03/06/23 11:03 [facility] [id number] 03/06/23 11:07 [facility] Document 03/13/23 09:28 [facility] [id number] 03/13/23 09:33 [facility] 02/27/23 03/06/23 03/13/23 10:23 11:03 09:28 - Today's Visit Information Type of service Follow-up Visit Follow-up Visit Follow-up Visit (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 (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 (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 ) ) ) Arrival Mode Ambulatory Ambulatory Ambulatory Transfer Assistance None None Accompanied by NATALIE Patient Identification Verified (Name & No Yes Yes ) Patient Requires Transmission-Based No No No Precautions Height and Weight Body Mass Index (BMI) 22.3 22.3 22.3 BMI Classification Normal Normal Normal Vital Signs Temperature (97.8 F-99.1 F) 97.3 F L 97.3 F L 97.7 F L Temperature Source Temporal Temporal Temporal Pulse Rate (60-100) 71 63 66 Pulse Location Monitor Monitor Monitor Respiratory Rate (12-18) 16 16 Respiratory rate source Observation Observation Oxygen Delivery Method Room Air Room Air Blood Pressure (90/60-120/80) 106/64 138/69 H 121/51 H Blood Pressure Mean (mm Hg) 78 92 74 Source Monitor Monitor Monitor Position Sitting Sitting Blood Pressure Location Left Arm Left Arm History Since Last Visit- (Skip if this is Patient's initial visit) Have you changed medications since your No No No last visit? Any new allergies or adverse reactions No No No Had a fall/change in ADL's that may No No No increase risk of falls Signs or symptoms of abuse and/or No No No neglect since last visit Have you been in the hospital since your No No No last visit? Has dressing in place as prescribed Yes Yes Yes Has compression in place as prescribed N/A N/A N/A Has offloadiing in place as prescribed N/A N/A N/A Experienced any changes in pain level or No No No management Left Footwear Regular Shoe Regular Shoe Regular Shoe Right Footwear Regular Shoe Regular Shoe Regular Shoe Pain Scale: 0-10 Numeric Is Patient Pain Free? Yes Yes Yes WC - Nurse 1 - General Ulcer Measurement Start: 02/27/23 09:26 Freq: Status: Active Protocol: Activity Type Activity Date Activity User E-sign Co-sign Detail Recorded Client Recorded Date Recorded By Document 02/27/23 10:23 NM [id number] 02/27/23 10:25 NM Document 03/06/23 11:03 [facility] [id number] 03/06/23 11:07 [facility] Document 03/13/23 09:28 [facility] [id number] 03/13/23 09:33 [facility] 02/27/23 03/06/23 03/13/23 10:23 11:03 09:28 Wound Center Nurse 1 #1 Chin -Combined with other wound No No No -Current Size (cm) - Length 2 1.9 3 -Current Size (cm) - Width 1.5 1.8 1.5 -Current Size (cm) - Depth 0.1 0.1 0.1 -Total Square Cm 3.0 3.42 4.5 -Date of Last Picture (Recall this 03/06/23 03/13/23 field) -Photo Taken Yes Yes Yes -Epithelialization Small 1-33% Small 1-33% -Tunneling No No No -Undermining/Tunneling No No No -Circular Undermining No No No -Change in Wound Grade/Stage No -Exudate Amt Large Medium Small -Exudate Type Yellow/Green Serosanguineous Serous -Wound Margin Distinct, Distinct, Flat & Intact Outline Outline Attached Attached -Granulation Amt Small (1-33%) Small (1-33%) Small (1-33%) -Granulation Quality Pale,Thibodaux Red Thibodaux -Slough/Fibrin Yes Yes Yes -Necrosis Amt Large (67-100%) Large (67-100%) Large (67-100%) -Necrotic Tissue Type Adherent Slough Adherent Slough Adherent Slough -Structure Exposed N/A -Texture (Candace-wound Skin Appearance) No Abnormality, Assessed, Assessed, Assessed Scarring Scarring -Moisture (Candace-wound Skin Appearance) No Abnormality, Assessed Assessed Assessed -Color (Candace-wound Skin Appearance) No Abnormality, Assessed Assessed Assessed -Temperature (Candace-wound Skin No Abnormality No Abnormality No Abnormality Appearance) (Pt Warm) (Pt Warm) (Pt Warm) -Tenderness on Palpation (Candace-wound No No No Skin Appearance) -Ulcer Cleansing Rinsed/ Rinsed/ Irrigated with Irrigated with Saline Saline -Foul Odor after Cleansing No Yes, Due to No Product Use -Anesthetic Used 4% Lidocaine 5% Lidocaine 5% Lidocaine Solution Gel Gel WC - Nurse 2 - General Ulcer CM Notes Start: 02/27/23 09:26 Freq: Status: Active Protocol: Activity Type Activity Date Activity User E-sign Co-sign Detail Recorded Client Recorded Date Recorded By Document 02/27/23 09:27 MW Desktop 02/27/23 09:27 MW Document 03/06/23 11:10 MW [id number] 03/06/23 11:25 MW Document 03/13/23 09:49 MW [id number] 03/13/23 09:50 MW 02/27/23 03/06/23 03/13/23 09:27 11:10 09:49 Wound Center Nurse 2 #1 Chin -Time 09:27 11:10 09:50 -Correct Patient Yes Yes Yes -Correct Side, Site, Position Yes Yes Yes -Correct Procedure Yes Yes Yes -Procedure Performed Yes Yes Yes -Type of Procedure Debridement Debridement Debridement -Clinical Debridement Subcutaneous Subcutaneous Subcutaneous -Tissue Removed Subcutaneous Subcutaneous Subcutaneous -Post Debridement (cm) - Length 2.0 2.5 2.5 -Post Debridement (cm) - Width 1.8 1.5 2.0 -Post Debridement (cm) - Depth 0.4 0.3 0.3 -Total Square (Post) (cm) 3.60 3.75 5.00 -Area of Debridement (cm) - Length 2.0 2.5 2.5 -Area of Debridement (cm) - Width 1.8 1.5 2.0 -Total Square (Area) (cm) 3.60 3.75 5.00 -Tunneling No No No -Undermining/Tunneling No No No -Circular Undermining No No No -Wound/Ulcer Outcome Not Healed Not Healed Not Healed -Ulcer Cleansing Rinsed/ Rinsed/ Rinsed/ Irrigated with Irrigated with Irrigated with Saline Saline Saline -Foul Odor after Cleansing No No No -Bioengineered Tissue No No No -Bleeding Controlled with Pressure Pressure Pressure -Treatment Response Procedure Procedure Procedure Tolerated Well Tolerated Well Tolerated Well -Offloading No No No -Debridement - Subq, 1st 20sq cm Yes Yes Yes Pain Scale: 0-10 Numeric Is Patient Pain Free? Yes Yes Yes - Nurse 3 - General Ulcer D/C NN Start: 02/27/23 09:26 Freq: Status: Active Protocol: Activity Type Activity Date Activity User E-sign Co-sign Detail Recorded Client Recorded Date Recorded By Document 02/27/23 09:30 MW Desktop 02/27/23 09:31 MW Document 03/06/23 11:20 MW [id number] 03/06/23 11:29 MW Document 03/13/23 09:55 MW [id number] 03/13/23 09:56 MW 02/27/23 03/06/23 03/13/23 09:30 11:20 09:55 Wound Care Center Nurse 3 #1 Chin -Ulcer Cleansing Rinsed/ Rinsed/ Rinsed/ Irrigated with Irrigated with Irrigated with Saline Saline Saline -Foul Odor after Cleansing No No No -Negative Pressure Wound Therapy N/A N/A -Primary Dressing Applied Promogran Fibracol Plus Fibracol Plus Swetha Matter 4x4 4x4 -Other Dressing bactroban bactroban -Primary Dressing Covered/Secured with Dry Gauze, Dry Gauze, Dry Gauze, Secured with Secured with Secured with Tape Tape Tape -Other Covering silicone tape -Fibracol Plus 4x4 1 1 -Promogran Swetha Matter 1 Treatment Response Procedure Procedure Procedure Tolerated Well Tolerated Well Tolerated Well Pain Scale: 0-10 Numeric Is Patient Pain Free? Yes Yes Yes Teaching: Wound Center Dressing Your Wound -Person Taught Patient -Teaching Method Discussion, Demonstration -Response to teaching Verbalize understanding WC - Visit Discharge Discharge Condition Stable Stable Stable Ambulatory Status Ambulatory Ambulatory Ambulatory Transportation Private Auto Private Auto Private Auto Accompanied by self self natalie Medication Reconcilliation completed & No No provided to patient/care provider Clinical Summary of Care Provided Yes Yes Assessment/Plan Assessment/Plan (1) Head and neck cancer: CODE(S): C76.0 - Malignant neoplasm of head, face and neck (2) Delayed surgical wound healing: CODE(S): T81.89XA - Other complications of procedures, not elsewhere classified, initial encounter QUALIFIERS: Encounter type: initial encounter Qualified Code(s): T81.89XA - Other complications of procedures, not elsewhere classified, initial encounter PLAN: Wash area with antibacterial soap and apply Bactroban to wound base nickelthickness then place fibrocol moistened cover with gauze and paper tape daily dressings Follow-up in 1 week (3) Nonhealing surgical wound: CODE(S): T81.89XA - Other complications of procedures, not elsewhere classified, initial encounter QUALIFIERS: Encounter type: initial encounter Qualified Code(s): T81.89XA - Other complications of procedures, not elsewhere classified, initial encounter (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 - Other specified disorders of the skin and subcutaneous tissue related to radiation; Y84.2 - Radiological procedure and radiotherapy as the cause of abnormal reaction of the patient, or of later complication, withoutmention of misadventure at the time of the procedure 03/13/23 1125 <Electronically signed by Joya Galvez NP [employer]> Cosigner Signature (if applicable): CC: ~ Signed [facility] Work Phone: 1(828) 624-612206-14-2023 Progress note Author Joya Galvez [facility] March 06, 2023 11:39am Note Date/Time March 06, 2023 11:3 9am [facility] [address] [place] [id number] Progress Note - Wound Care 03/06/23 1135 MR#: [id number] Acct: [id number] Name: YM JAAM Rep #:[id number] : 1960 62 From: Joya Galvez NP [employer] PCP: Kya Ciesa, [employer] Status:REG RCR Location: History of Present Illness Date of Service: 03/06/23 Chief Complaint: 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 He received courses of chemotherapy followed by radiation treatments, which wereconcluded by the end of 2017. He recently underwent oral surgery and had 8 teeth extracted. Two extraction sites have failed to heal. On November 07, 2021, the patient underwent reconstruction of the jaw using bone from his left lower leg. 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 Progress of Wound: The wound is doing very well this week again measurements are smaller we can tryfibrin call this week rather than the Swetha I do not think he needs the silver anymore. We will continue using the Bactroban on the base and then wet the Fibracol on top and then cover with gauze dressing and see how he does in a week Subjective Subjective Patient is okay with outcomes Objective Data Objective Data Again no sign of infection looks good we will try changing from Swetha to Fibracol Vital Signs: Vital Signs Temp Pulse Resp BP O2 Del Method 97.3 F L 63 16 138/69 H Room Air 03/06/23 11:03 03/06/23 11:03 03/06/23 11:03 03/06/23 11:03 03/06/23 11:03 Oxygen Delivery Method Room Air Weight: 130 lb Body Mass Index (BMI) 22.3 Physical Exam Narrative ECOG 1 Hard of hearing Const alert, oriented x3 and no apparent distress General Appearance: cooperative and comfortable HEENT normocephalic HEENT Narrative: Reconstruction of the lower face, soft tissue edema Mouth: No thrush Eyes General Eye: normal appearance of both eyes Conjunctiva: conjunctiva normal Sclera: sclera normal Neck no lymphadenopathy and no JVD Neck Narrative: Postoperative changes and flap. Wound is covered with surgical dressing General: tracheostomy present Lymph Lymphatic: no lymphadenopathy noted Chest Chest: symmetrical chest wall rise Resp Auscultation: diminished lung sounds bilateral and diffuse Cardio regular rate and regular rhythm Jugular Venous Distention: Negative for JVD GI soft to palpation, non-tender and non-distended; Negative for hepatosplenomegaly GI Narrative: PEG tube Inspection: GI tube present no CVA tenderness Back/Spine no thoracic nor lumbar tenderness Extremity General Extremity: Negative for clubbing, cyanosis or edema Skin no rashes or lesions noted Neuro oriented x3, CN's II-XII intact bilaterally and moves all extremities Neuro Narrative: Bilateral symmetric wasting of first interosseous muscles. Coordination / Balance: [id number] test normal Speech: speech abnormal Gait (Neuro): normal gait Psych mental status grossly normal, thought process normal, cooperative and affect normal Debridement Note Debridement Note Wound debrided: Left jaw nonhealing surgical opening from cancer Type of Debridement: Excisional debridement Anesthesia Used: 5% Lidocaine Gel Depth: Down to and including healthy tissue Percentage of wound debrided: 100 Instrument Used: 5mm curette Tissue Removed: Fibrin and some devitalized tissue Severity: Limited To Skin Breakdown Amount of bleeding with debridement: Mild Bleeding Controlled with: Compression and gauze Patient tolerated procedure: Patient tolerated procedure well Post-Debridement Measurements and Additional Note: Post-Debridement Measurements/Treatment - Nurse 1 - General Ulcer Assessment Start: 02/27/23 09:26 Freq: Status: Active Protocol: BRANDAN Activity Type Activity Date Activity User E-sign Co-sign Detail Recorded Client Recorded Date Recorded By Document 02/27/23 10:23 NM [id number] 02/27/23 10:25 NM Document 03/06/23 11:03 [facility] [id number] 03/06/23 11:07 [facility] 02/27/23 03/06/23 10:23 11:03 - Today's Visit Information Type of service Follow-up Visit Follow-up Visit (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 (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 ) ) Arrival Mode Ambulatory Ambulatory Transfer Assistance None Patient Identification Verified (Name & No Yes ) Patient Requires Transmission-Based No No Precautions Height and Weight Body Mass Index (BMI) 22.3 22.3 BMI Classification Normal Normal Vital Signs Temperature (97.8 F-99.1 F) 97.3 F L 97.3 F L Temperature Source Temporal Temporal Pulse Rate (60-100) 71 63 Pulse Location Monitor Monitor Respiratory Rate (12-18) 16 Respiratory rate source Observation Oxygen Delivery Method Room Air Blood Pressure (90/60-120/80) 106/64 138/69 H Blood Pressure Mean (mm Hg) 78 92 Source Monitor Monitor Position Sitting Blood Pressure Location Left Arm History Since Last Visit- (Skip if this is Patient's initial visit) Have you changed medications since your No No last visit? Any new allergies or adverse reactions No No Had a fall/change in ADL's that may No No increase risk of falls Signs or symptoms of abuse and/or No No neglect since last visit Have you been in the hospital since your No No last visit? Has dressing in place as prescribed Yes Yes Has compression in place as prescribed N/A N/A Has offloadiing in place as prescribed N/A N/A Experienced any changes in pain level or No No management Left Footwear Regular Shoe Regular Shoe Right Footwear Regular Shoe Regular Shoe Pain Scale: 0-10 Numeric Is Patient Pain Free? Yes Yes WC - Nurse 1 - General Ulcer Measurement Start: 02/27/23 09:26 Freq: Status: Active Protocol: Activity Type Activity Date Activity User E-sign Co-sign Detail Recorded Client Recorded Date Recorded By Document 02/27/23 10:23 SHANTELL [id number] 02/27/23 10:25 AK Document 03/06/23 11:03 [facility] [id number] 03/06/23 11:07 [facility] 02/27/23 03/06/23 10:23 11:03 Wound Center Nurse 1 #1 Chin -Combined with other wound No No -Current Size (cm) - Length 2 1.9 -Current Size (cm) - Width 1.5 1.8 -Current Size (cm) - Depth 0.1 0.1 -Total Square Cm 3.0 3.42 -Date of Last Picture (Recall this 03/06/23 field) -Photo Taken Yes Yes -Epithelialization Small 1-33% -Tunneling No No -Undermining/Tunneling No No -Circular Undermining No No -Change in Wound Grade/Stage No -Exudate Amt Large Medium -Exudate Type Yellow/Green Serosanguineous -Wound Margin Distinct, Distinct, Outline Outline Attached Attached -Granulation Amt Small (1-33%) Small (1-33%) -Granulation Quality Pale,[place] Red -Slough/Fibrin Yes Yes -Necrosis Amt Large (67-100%) Large (67-100%) -Necrotic Tissue Type Adherent Slough Adherent Slough -Structure Exposed N/A -Texture (Candace-wound Skin Appearance) No Abnormality, Assessed, Assessed Scarring -Moisture (Candace-wound Skin Appearance) No Abnormality, Assessed Assessed -Color (Candace-wound Skin Appearance) No Abnormality, Assessed Assessed -Temperature (Candace-wound Skin No Abnormality No Abnormality Appearance) (Pt Warm) (Pt Warm) -Tenderness on Palpation (Candace-wound No No Skin Appearance) -Ulcer Cleansing Rinsed/ Irrigated with Saline -Foul Odor after Cleansing No Yes, Due to Product Use -Anesthetic Used 4% Lidocaine 5% Lidocaine Solution Gel WC - Nurse 2 - General Ulcer CM Notes Start: 02/27/23 09:26 Freq: Status: Active Protocol: Activity Type Activity Date Activity User E-sign Co-sign Detail Recorded Client Recorded Date Recorded By Document 02/27/23 09:27 MW Desktop 02/27/23 09:27 MW Document 03/06/23 11:10 MW [id number] 03/06/23 11:25 MW 02/27/23 03/06/23 09:27 11:10 Wound Center Nurse 2 #1 Chin -Time 09:27 11:10 -Correct Patient Yes Yes -Correct Side, Site, Position Yes Yes -Correct Procedure Yes Yes -Procedure Performed Yes Yes -Type of Procedure Debridement Debridement -Clinical Debridement Subcutaneous Subcutaneous -Tissue Removed Subcutaneous Subcutaneous -Post Debridement (cm) - Length 2.0 2.5 -Post Debridement (cm) - Width 1.8 1.5 -Post Debridement (cm) - Depth 0.4 0.3 -Total Square (Post) (cm) 3.60 3.75 -Area of Debridement (cm) - Length 2.0 2.5 -Area of Debridement (cm) - Width 1.8 1.5 -Total Square (Area) (cm) 3.60 3.75 -Tunneling No No -Undermining/Tunneling No No -Circular Undermining No No -Wound/Ulcer Outcome Not Healed Not Healed -Ulcer Cleansing Rinsed/ Rinsed/ Irrigated with Irrigated with Saline Saline -Foul Odor after Cleansing No No -Bioengineered Tissue No No -Bleeding Controlled with Pressure Pressure -Treatment Response Procedure Procedure Tolerated Well Tolerated Well -Offloading No No -Debridement - Subq, 1st 20sq cm Yes Yes Pain Scale: 0-10 Numeric Is Patient Pain Free? Yes Yes WC - Nurse 3 - General Ulcer D/C NN Start: 02/27/23 09:26 Freq: Status: Active Protocol: Activity Type Activity Date Activity User E-sign Co-sign Detail Recorded Client Recorded Date Recorded By Document 02/27/23 09:30 MW Desktop 02/27/23 09:31 MW Document 03/06/23 11:20 MW [id number] 03/06/23 11:29 MW 02/27/23 03/06/23 09:30 11:20 Wound Care Center Nurse 3 #1 Chin -Ulcer Cleansing Rinsed/ Rinsed/ Irrigated with Irrigated with Saline Saline -Foul Odor after Cleansing No No -Negative Pressure Wound Therapy N/A N/A -Primary Dressing Applied Promogran Fibracol Plus Swetha Matter 4x4 -Other Dressing bactroban -Primary Dressing Covered/Secured with Dry Gauze, Dry Gauze, Secured with Secured with Tape Tape -Fibracol Plus 4x4 1 -Promogran Swetha Matter 1 Treatment Response Procedure Procedure Tolerated Well Tolerated Well Pain Scale: 0-10 Numeric Is Patient Pain Free? Yes Yes Teaching: Wound Center Dressing Your Wound -Person Taught Patient -Teaching Method Discussion, Demonstration -Response to teaching Verbalize understanding WC - Visit Discharge Discharge Condition Stable Stable Ambulatory Status Ambulatory Ambulatory Transportation Private Auto Private Auto Accompanied by self self Medication Reconcilliation completed & No No provided to patient/care provider Clinical Summary of Care Provided Yes Yes Assessment/Plan Assessment/Plan (1) Head and neck cancer: CODE(S): C76.0 - Malignant neoplasm of head, face and neck (2) Delayed surgical wound healing: CODE(S): T81.89XA - Other complications of procedures, not elsewhere classified, initial encounter QUALIFIERS: Encounter type: initial encounter Qualified Code(s): T81.89XA - Other complications of procedures, not elsewhere classified, initial encounter PLAN: Wash area with antibacterial soap and apply Bactroban to wound base nickelthickness then place fibrocol moistened cover with gauze and paper tape daily dressings Follow-up in 1 week (3) Nonhealing surgical wound: CODE(S): T81.89XA - Other complications of procedures, not elsewhere classified, initial encounter QUALIFIERS: Encounter type: initial encounter Qualified Code(s): T81.89XA - Other complications of procedures, not elsewhere classified, initial encounter (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 - Other specified disorders of the skin and subcutaneous tissue related to radiation; Y84.2 - Radiological procedure and radiotherapy as the cause of abnormal reaction of the patient, or of later complication, withoutmention of misadventure at the time of the procedure 03/06/23 1139 <Electronically signed by Joya Galvez NP [employer]> Cosigner Signature (if applicable): CC: ~ Signed [facility] Work Phone: 1(563) 358-683206-07-2023 Progress note Author Joya Galvez [facility] February 27, 2023 10:07am Note Date/Time February 27, 2023 10:05 am [facility] [address] [place] [address] Progress Note - Wound Care 02/27/23 1003 MR#: [id number] Acct: [id number] Name: MY JAMA Rep #:[id number] : 1960 62 From: Joya Galvez NP [employer] PCP: YARI Pardo Status:REG RCR Location: History of Present Illness Date of Service: 02/27/23 Chief Complaint: 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 He received courses of chemotherapy followed by radiation treatments, which wereconcluded by the end of 2018. He recently underwent oral surgery and had 8 teeth extracted. Two extraction sites have failed to heal. On November 07, 2021, the patient underwent reconstruction of the jaw using bone from his left lower leg. 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 Progress of Wound: The wound has really taken a jump start this week with getting more shallow and is very small area that is actually open. Still has the hollowness and that is were working but it is filling in nicely. Saw his surgeon and she was impressedthat it looks a lot better. Subjective Subjective Patient is very pleased with outcomes Objective Data Objective Data Treatments are smaller patient is finishing up his antibiotics that we put him on for infection. Wound itself looks very good Vital Signs: Vital Signs Temp Pulse Resp BP 97.5 F L 74 18 126/60 H 02/21/23 00:25 02/21/23 00:25 02/21/23 00:25 02/21/23 00:25 Weight: 130 lb Body Mass Index (BMI) 22.3 Lab / Micro Data Attestation: I reviewed the patient's lab results. Physical Exam Narrative ECOG 1 Hard of hearing Const alert, oriented x3 and no apparent distress General Appearance: cooperative and comfortable HEENT normocephalic HEENT Narrative: Reconstruction of the lower face, soft tissue edema Mouth: No thrush Eyes General Eye: normal appearance of both eyes Conjunctiva: conjunctiva normal Sclera: sclera normal Neck no lymphadenopathy and no JVD Neck Narrative: Postoperative changes and flap. Wound is covered with surgical dressing General: tracheostomy present Lymph Lymphatic: no lymphadenopathy noted Chest Chest: symmetrical chest wall rise Resp Auscultation: diminished lung sounds bilateral and diffuse Cardio regular rate and regular rhythm Jugular Venous Distention: Negative for JVD GI soft to palpation, non-tender and non-distended; Negative for hepatosplenomegaly GI Narrative: PEG tube Inspection: GI tube present no CVA tenderness Back/Spine no thoracic nor lumbar tenderness Extremity General Extremity: Negative for clubbing, cyanosis or edema Skin no rashes or lesions noted Neuro oriented x3, CN's II-XII intact bilaterally and moves all extremities Neuro Narrative: Bilateral symmetric wasting of first interosseous muscles. Coordination / Balance: [id number] test normal Speech: speech abnormal Gait (Neuro): normal gait Psych mental status grossly normal, thought process normal, cooperative and affect normal Debridement Note Debridement Note Wound debrided: Left jaw nonhealing surgical wound nonpressure Type of Debridement: Excisional debridement Anesthesia Used: 5% Lidocaine Gel Depth: Down to and including healthy tissue Percentage of wound debrided: 100 Instrument Used: 3mm curette Tissue Removed: Fibrin and some slough Severity: Limited To Skin Breakdown Amount of bleeding with debridement: Mild Bleeding Controlled with: Compression and gauze Patient tolerated procedure: Patient tolerated procedure well Post-Debridement Measurements and Additional Note: Post-Debridement Measurements/Treatment WC - Nurse 2 - General Ulcer CM Notes Start: 02/27/23 09:26 Freq: Status: Active Protocol: Activity Type Activity Date Activity User E-sign Co-sign Detail Recorded Client Recorded Date Recorded By Document 02/27/23 09:27 MW Desktop 02/27/23 09:27 MW 02/27/23 09:27 Wound Center Nurse 2 #1 Chin -Time 09:27 -Correct Patient Yes -Correct Side, Site, Position Yes -Correct Procedure Yes -Procedure Performed Yes -Type of Procedure Debridement -Clinical Debridement Subcutaneous -Tissue Removed Subcutaneous -Post Debridement (cm) - Length 2.0 -Post Debridement (cm) - Width 1.8 -Post Debridement (cm) - Depth 0.4 -Total Square (Post) (cm) 3.60 -Area of Debridement (cm) - Length 2.0 -Area of Debridement (cm) - Width 1.8 -Total Square (Area) (cm) 3.60 -Tunneling No -Undermining/Tunneling No -Circular Undermining No -Wound/Ulcer Outcome Not Healed -Ulcer Cleansing Rinsed/ Irrigated with Saline -Foul Odor after Cleansing No -Bioengineered Tissue No -Bleeding Controlled with Pressure -Treatment Response Procedure Tolerated Well -Offloading No -Debridement - Subq, 1st 20sq cm Yes Pain Scale: 0-10 Numeric Is Patient Pain Free? Yes - Nurse 3 - General Ulcer D/C NN Start: 02/27/23 09:26 Freq: Status: Active Protocol: Activity Type Activity Date Activity User E-sign Co-sign Detail Recorded Client Recorded Date Recorded By Document 02/27/23 09:30 MW Desktop 02/27/23 09:31 MW 02/27/23 09:30 Wound Care Center Nurse 3 #1 Chin -Ulcer Cleansing Rinsed/ Irrigated with Saline -Foul Odor after Cleansing No -Negative Pressure Wound Therapy N/A -Primary Dressing Applied Promogran Swetha Matter -Other Dressing bactroban -Primary Dressing Covered/Secured with Dry Gauze, Secured with Tape -Promogran Swetha Matter 1 Treatment Response Procedure Tolerated Well Pain Scale: 0-10 Numeric Is Patient Pain Free? Yes - Visit Discharge Discharge Condition Stable Ambulatory Status Ambulatory Transportation Private Auto Accompanied by self Medication Reconcilliation completed & No provided to patient/care provider Clinical Summary of Care Provided Yes Assessment/Plan Assessment/Plan (1) Head and neck cancer: CODE(S): C76.0 - Malignant neoplasm of head, face and neck (2) Delayed surgical wound healing: CODE(S): T81.89XA - Other complications of procedures, not elsewhere classified, initial encounter QUALIFIERS: Encounter type: initial encounter Qualified Code(s): T81.89XA - Other complications of procedures, not elsewhere classified, initial encounter PLAN: Wash area with antibacterial soap and apply Bactroban to wound base nickelthickness then place Swetha and base cover with gauze and paper tape daily dressings Finish doxycycline 100 mg twice a day for 14 days Follow-up in 1 week (3) Nonhealing surgical wound: CODE(S): T81.89XA - Other complications of procedures, not elsewhere classified, initial encounter QUALIFIERS: Encounter type: initial encounter Qualified Code(s): T81.89XA - Other complications of procedures, not elsewhere classified, initial encounter (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 - Other specified disorders of the skin and subcutaneous tissue related to radiation; Y84.2 - Radiological procedure and radiotherapy as the cause of abnormal reaction of the patient, or of later complication, withoutmention of misadventure at the time of the procedure 02/27/23 1007 <Electronically signed by Joya Galvez NP [employer]> Cosigner Signature (if applicable): CC: ~ Signed [facility] Work Phone: 1(503) 568-745205-31-2023 Progress note Author Joya Galvez [facility] February 20, 2023 9:05am Note Date/Time February 20, 2023 9:05a m [facility] [address] [place] [id number] Progress Note - Wound Care 02/20/23 09 MR#: [id number] Acct: [id number] Name: MY JAMA Rep #:[id number] : 1960 62 From: Joya Galvez NP [employer] PCP: YARI Pardo Status:REG RCR Location: History of Present Illness Date of Service: 02/20/23 Chief Complaint: 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 He received courses of chemotherapy followed by radiation treatments, which wereconcluded by the end of 2018. He recently underwent oral surgery and had 8 teeth extracted. Two extraction sites have failed to heal. On November 07, 2021, the patient underwent reconstruction of the jaw using bone from his left lower leg. 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 Progress of Wound: The jaw wound itself is filling in nicely still gets a lot of contamination in that wound with an bacteria. 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 Patient was positive for cultures and patient will be started on doxycycline Subjective Subjective Very pleased with outcomes Objective Data Objective Data Doing well on the antibiotic he has been on since last Saturday and using the Bactroban with the Swetha over top doing well Vital Signs: Vital Signs Temp Pulse Resp BP O2 Del Method 97.5 F L 74 18 126/60 H Room Air 02/20/23 08:46 02/20/23 08:46 02/20/23 08:46 02/20/23 08:46 02/20/23 08:46 Oxygen Delivery Method Room Air Weight: 130 lb Body Mass Index (BMI) 22.3 Lab / Micro Data Attestation: I reviewed the patient's lab results. Micro: Microbiology 02/13/23 08:50 Wound Abcess - Face Gram Stain - Final 02/13/23 08:50 Wound Abcess - Face Wound Culture - Final Staphylococcus aureus 02/13/23 08:50 Wound Abcess - Face Anaerobic Culture - Final No anaerobic bacteria isolated. Physical Exam Narrative ECOG 1 Hard of hearing Const alert, oriented x3 and no apparent distress General Appearance: cooperative and comfortable HEENT normocephalic HEENT Narrative: Reconstruction of the lower face, soft tissue edema Mouth: No thrush Eyes General Eye: normal appearance of both eyes Conjunctiva: conjunctiva normal Sclera: sclera normal Neck no lymphadenopathy and no JVD Neck Narrative: Postoperative changes and flap. Wound is covered with surgical dressing General: tracheostomy present Lymph Lymphatic: no lymphadenopathy noted Chest Chest: symmetrical chest wall rise Resp Auscultation: diminished lung sounds bilateral and diffuse Cardio regular rate and regular rhythm Jugular Venous Distention: Negative for JVD GI soft to palpation, non-tender and non-distended; Negative for hepatosplenomegaly GI Narrative: PEG tube Inspection: GI tube present no CVA tenderness Back/Spine no thoracic nor lumbar tenderness Extremity General Extremity: Negative for clubbing, cyanosis or edema Skin no rashes or lesions noted Neuro oriented x3, CN's II-XII intact bilaterally and moves all extremities Neuro Narrative: Bilateral symmetric wasting of first interosseous muscles. Coordination / Balance: [id number] test normal Speech: speech abnormal Gait (Neuro): normal gait Psych mental status grossly normal, thought process normal, cooperative and affect normal Debridement Note Debridement Note Wound debrided: Left jaw surgical nonhealing from cancer Laterality: Left Type of Debridement: Excisional debridement Anesthesia Used: 5% Lidocaine Gel Depth: Down to and including healthy tissue Percentage of wound debrided: 100 Instrument Used: 5mm curette Tissue Removed: Fibrin Severity: Limited To Skin Breakdown Amount of bleeding with debridement: None Bleeding Controlled with: Compression and gauze Patient tolerated procedure: Patient tolerated procedure well Post-Debridement Measurements and Additional Note: Post-Debridement Measurements/Treatment - Nurse 1 - General Ulcer Assessment Start: 01/23/23 08:16 Freq: Status: Active Protocol: BRANDAN Activity Type Activity Date Activity User E-sign Co-sign Detail Recorded Client Recorded Date Recorded By Document 01/23/23 08:17 [facility] [id number] 01/23/23 08:26 [facility] Document 01/30/23 08:27 [facility] [id number] 01/30/23 08:33 [facility] Document 02/06/23 08:18 [facility] [id number] 02/06/23 08:23 [facility] Document 02/13/23 08:33 [facility] [id number] 02/13/23 08:40 [facility] Document 02/20/23 08:46 MW [id number] 02/20/23 08:49 MW 01/23/23 01/30/23 02/06/23 08:17 08:27 08:18 - Today's Visit Information Type of service Follow-up Visit Follow-up Visit Follow-up Visit (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 (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 (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 ) ) ) Arrival Mode Ambulatory Ambulatory Ambulatory Transfer Assistance None None None Accompanied by natalie Patient Identification Verified (Name & Yes Yes Yes ) Patient Requires Transmission-Based No No No Precautions Safety Precautions Height and Weight Body Mass Index (BMI) 22.3 22.3 22.3 BMI Classification Normal Normal Normal Vital Signs Temperature (97.8 F-99.1 F) 97.9 F 99 F 98.5 F Temperature Source Temporal Temporal Temporal Pulse Rate (60-100) 67 72 69 Pulse Location Monitor Monitor Monitor Respiratory Rate (12-18) 18 18 18 Respiratory rate source Observation Observation Observation Oxygen Delivery Method Room Air Room Air Blood Pressure (90/60-120/80) 116/58 L 115/62 115/58 L Blood Pressure Mean (mm Hg) 77 79 77 Source Monitor Monitor Monitor Position Sitting Semi-Fowlers Sitting Blood Pressure Location Left Arm Left Arm Left Arm History Since Last Visit- (Skip if this is Patient's initial visit) Have you changed medications since your No No No last visit? Any new allergies or adverse reactions No No No Had a fall/change in ADL's that may No No No increase risk of falls Signs or symptoms of abuse and/or No No No neglect since last visit Have you been in the hospital since your No No No last visit? Has dressing in place as prescribed Yes Yes Yes Has compression in place as prescribed N/A No N/A Has offloadiing in place as prescribed N/A No N/A Experienced any changes in pain level or No No No management Left Footwear Regular Shoe Regular Shoe Right Footwear Regular Shoe Regular Shoe Pain Scale: 0-10 Numeric Is Patient Pain Free? Yes Yes Yes 02/13/23 02/20/23 08:33 08:46 WC - Today's Visit Information Type of service Follow-up Visit Follow-up Visit (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 (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 ) ) Arrival Mode Ambulatory Ambulatory Transfer Assistance None None Accompanied by natalie self Patient Identification Verified (Name & Yes Yes ) Patient Requires Transmission-Based No No Precautions Safety Precautions NA Height and Weight Body Mass Index (BMI) 22.3 22.3 BMI Classification Normal Normal Vital Signs Temperature (97.8 F-99.1 F) 98.8 F 97.5 F L Temperature Source Temporal Temporal Pulse Rate (60-100) 80 74 Pulse Location Monitor Monitor Respiratory Rate (12-18) 18 18 Respiratory rate source Observation Observation Oxygen Delivery Method Room Air Room Air Blood Pressure (90/60-120/80) 126/64 H 126/60 H Blood Pressure Mean (mm Hg) 84 82 Source Monitor Monitor Position Sitting Sitting Blood Pressure Location Left Arm Left Arm History Since Last Visit- (Skip if this is Patient's initial visit) Have you changed medications since your No No last visit? Any new allergies or adverse reactions No No Had a fall/change in ADL's that may No No increase risk of falls Signs or symptoms of abuse and/or No No neglect since last visit Have you been in the hospital since your No No last visit? Has dressing in place as prescribed Yes Yes Has compression in place as prescribed N/A N/A Has offloadiing in place as prescribed N/A N/A Experienced any changes in pain level or No No management Left Footwear Regular Shoe Regular Shoe Right Footwear Regular Shoe Regular Shoe Pain Scale: 0-10 Numeric Is Patient Pain Free? Yes Yes WC - Nurse 1 - General Ulcer Measurement Start: 01/23/23 08:16 Freq: Status: Active Protocol: Activity Type Activity Date Activity User E-sign Co-sign Detail Recorded Client Recorded Date Recorded By Document 01/23/23 08:17 BM [id number] 01/23/23 08:26 BM Document 01/30/23 08:27 BMF [id number] 01/30/23 08:33 [facility] Document 02/06/23 08:18 BMF [id number] 02/06/23 08:23 BMF Document 02/13/23 08:33 BMF [id number] 02/13/23 08:40 BM Document 02/20/23 08:46 MW [id number] 02/20/23 08:49 MW 01/23/23 01/30/23 02/06/23 08:17 08:27 08:18 Wound Center Nurse 1 #1 Chin -Combined with other wound No No No -Current Size (cm) - Length 2.3 2.4 2.8 -Current Size (cm) - Width 2 1.9 2.3 -Current Size (cm) - Depth 0.3 0.2 0.2 -Total Square Cm 4.6 4.56 6.44 -Date of Last Picture (Recall this 02/06/23 field) -Photo Taken No Yes Yes -Epithelialization Small 1-33% None Present -Tunneling No No No -Undermining/Tunneling No No No -Circular Undermining No No No -Exudate Amt Medium Medium Medium -Exudate Type Serous Serosanguineous Serosanguineous -Wound Margin Distinct, Fibrotic Scar, Distinct, Outline Thickened Scar Outline Attached Attached -Granulation Amt Small (1-33%) Medium (34-66%) Small (1-33%) -Granulation Quality Thibodaux Thibodaux Red -Slough/Fibrin Yes Yes Yes -Necrosis Amt Large (67-100%) Medium (34-66%) Large (67-100%) -Necrotic Tissue Type Adherent Slough Adherent Slough Adherent Slough -Structure Exposed N/A -Texture (Candace-wound Skin Appearance) Assessed, Assessed Assessed, Scarring Scarring -Moisture (Candace-wound Skin Appearance) Assessed Assessed Assessed -Color (Candace-wound Skin Appearance) Assessed Assessed, Assessed, Erythema Erythema -Temperature (Candace-wound Skin No Abnormality No Abnormality No Abnormality Appearance) (Pt Warm) (Pt Warm) (Pt Warm) -Tenderness on Palpation (Candace-wound No No No Skin Appearance) -Ulcer Cleansing Rinsed/ Rinsed/ Rinsed/ Irrigated with Irrigated with Irrigated with Saline Saline Saline -Foul Odor after Cleansing No No No -Anesthetic Used 5% Lidocaine 5% Lidocaine 5% Lidocaine Gel Gel Gel Lower Limb Edema Present 02/13/23 02/20/23 08:33 08:46 Wound Center Nurse 1 #1 Chin -Combined with other wound No No -Current Size (cm) - Length 3 2.0 -Current Size (cm) - Width 2.4 1.8 -Current Size (cm) - Depth 0.3 0.2 -Total Square Cm 7.2 3.60 -Date of Last Picture (Recall this 02/13/23 field) -Photo Taken Yes No -Epithelialization None Present Small 1-33% -Tunneling No No -Undermining/Tunneling No No -Circular Undermining No No -Exudate Amt Medium Small -Exudate Type Serosanguineous Serosanguineous -Wound Margin Distinct, Fibrotic Scar, Outline Thickened Scar Attached -Granulation Amt None Present (0 Small (1-33%) %) -Granulation Quality [place] -Slough/Fibrin Yes Yes -Necrosis Amt Large (67-100%) Medium (34-66%) -Necrotic Tissue Type Adherent Slough Adherent Slough -Structure Exposed N/A -Texture (Candace-wound Skin Appearance) Assessed, Assessed, Scarring Excoriation, Scarring -Moisture (Candaec-wound Skin Appearance) Assessed Assessed -Color (Candace-wound Skin Appearance) Assessed, No Abnormality, Erythema Assessed -Temperature (Candace-wound Skin No Abnormality No Abnormality Appearance) (Pt Warm) (Pt Warm) -Tenderness on Palpation (Candace-wound No No Skin Appearance) -Ulcer Cleansing Rinsed/ Rinsed/ Irrigated with Irrigated with Saline Saline -Foul Odor after Cleansing No No -Anesthetic Used 5% Lidocaine 5% Lidocaine Gel Gel Lower Limb Edema Present No WC - Nurse 2 - General Ulcer CM Notes Start: 01/23/23 08:16 Freq: Status: Active Protocol: Activity Type Activity Date Activity User E-sign Co-sign Detail Recorded Client Recorded Date Recorded By Document 01/23/23 08:48 MW [id number] 01/23/23 08:50 MW Document 01/30/23 08:46 MW [id number] 01/30/23 08:47 MW Document 02/06/23 08:39 PL [id number] 02/06/23 08:40 PL Document 02/13/23 08:45 MW [id number] 02/13/23 08:52 MW Document 02/20/23 08:49 MW [id number] 02/20/23 08:55 MW 01/23/23 01/30/23 02/06/23 08:48 08:46 08:39 Wound Center Nurse 2 #1 Chin -Time 08:48 08:46 08:27 -Correct Patient Yes Yes Yes -Correct Side, Site, Position Yes Yes Yes -Correct Procedure Yes Yes Yes -Procedure Performed Yes Yes Yes -Type of Procedure Debridement Debridement Debridement -Clinical Debridement Subcutaneous Subcutaneous Subcutaneous -Tissue Removed Subcutaneous Subcutaneous Subcutaneous -Post Debridement (cm) - Length 2.0 2.5 2.5 -Post Debridement (cm) - Width 2.3 2.0 2.5 -Post Debridement (cm) - Depth 0.5 0.5 0.5 -Total Square (Post) (cm) 4.60 5.00 6.25 -Area of Debridement (cm) - Length 2.0 2.5 2.5 -Area of Debridement (cm) - Width 2.3 2.0 2.5 -Total Square (Area) (cm) 4.60 5.00 6.25 -Tunneling No No No -Undermining/Tunneling No No No -Circular Undermining No No No -Wound/Ulcer Outcome Not Healed Not Healed Not Healed -Ulcer Cleansing Rinsed/ Rinsed/ Rinsed/ Irrigated with Irrigated with Irrigated with Saline Saline Saline -Foul Odor after Cleansing No No No -Bioengineered Tissue No No No -Bleeding Controlled with Pressure Pressure Pressure -Treatment Response Procedure Procedure Procedure Tolerated Well Tolerated Well Tolerated Well -Offloading No No -Debridement - Subq, 1st 20sq cm Yes Yes Yes Pain Scale: 0-10 Numeric Is Patient Pain Free? Yes Yes Yes 02/13/23 02/20/23 08:45 08:49 Wound Center Nurse 2 #1 Chin -Time 08:46 08:53 -Correct Patient Yes Yes -Correct Side, Site, Position Yes Yes -Correct Procedure Yes Yes -Procedure Performed Yes Yes -Type of Procedure Debridement Debridement -Clinical Debridement Subcutaneous Subcutaneous -Tissue Removed Subcutaneous Subcutaneous -Post Debridement (cm) - Length 2.4 2.3 -Post Debridement (cm) - Width 1.3 1.5 -Post Debridement (cm) - Depth 0.5 0.5 -Total Square (Post) (cm) 3.12 3.45 -Area of Debridement (cm) - Length 2.4 2.3 -Area of Debridement (cm) - Width 1.3 1.5 -Total Square (Area) (cm) 3.12 3.45 -Tunneling No No -Undermining/Tunneling No No -Circular Undermining No No -Wound/Ulcer Outcome Not Healed Not Healed -Ulcer Cleansing Rinsed/ Rinsed/ Irrigated with Irrigated with Saline Saline -Foul Odor after Cleansing No No -Bioengineered Tissue No No -Bleeding Controlled with Pressure Pressure -Treatment Response Procedure Procedure Tolerated Well Tolerated Well -Offloading No No -Debridement - Subq, 1st 20sq cm Yes Yes Pain Scale: 0-10 Numeric Is Patient Pain Free? Yes Yes - Nurse 3 - General Ulcer D/C NN Start: 01/23/23 08:16 Freq: Status: Active Protocol: Activity Type Activity Date Activity User E-sign Co-sign Detail Recorded Client Recorded Date Recorded By Document 01/23/23 08:56 [facility] [id number] 01/23/23 08:57 [facility] Document 01/30/23 08:47 MW [id number] 01/30/23 08:48 MW Document 02/06/23 08:41 RB [id number] 02/06/23 08:41 RB Document 02/13/23 08:54 MW [id number] 02/13/23 08:54 MW Document 02/20/23 08:55 MW [id number] 02/20/23 08:56 MW 01/23/23 01/30/23 02/06/23 08:56 08:47 08:41 Wound Care Center Nurse 3 #1 Chin -Ulcer Cleansing Rinsed/ Rinsed/ Rinsed/ Irrigated with Irrigated with Irrigated with Saline Saline Saline -Foul Odor after Cleansing No No -Negative Pressure Wound Therapy N/A -Primary Dressing Applied NonAdherent NonAdherent NonAdherent Contact Layer, Contact Layer, Contact Layer, Promogran Promogran Promogran Swetha Matter Swetha Matter Swetha Matter -Other Dressing -Primary Dressing Covered/Secured with Dry Gauze, Dry Gauze Dry Gauze, Secured with Secured with Tape Tape -Other Covering silicone tape -Promogran Swetha Matter 1 1 1 Treatment Response Procedure Procedure Procedure Tolerated Well Tolerated Well Tolerated Well Pain Scale: 0-10 Numeric Is Patient Pain Free? Yes Yes Yes Teaching: Wound Center Dressing Your Wound -Person Taught Patient,Family -Teaching Method Discussion, Demonstration -Response to teaching Verbalize understanding WC - Visit Discharge Discharge Condition Stable Stable Stable Ambulatory Status Ambulatory Ambulatory Ambulatory Transportation Private Auto Private Auto Private Auto Accompanied by natalie daughter Medication Reconcilliation completed & No No provided to patient/care provider Clinical Summary of Care Provided Yes Yes 02/13/23 02/20/23 08:54 08:55 Wound Care Center Nurse 3 #1 Chin -Ulcer Cleansing Rinsed/ Rinsed/ Irrigated with Irrigated with Saline Saline -Foul Odor after Cleansing No No -Negative Pressure Wound Therapy N/A N/A -Primary Dressing Applied Promogran Swetha Matter -Other Dressing bactroban bactroban, swetha -Primary Dressing Covered/Secured with Dry Gauze, Dry Gauze, Secured with Secured with Tape Tape -Other Covering -Promogran Swetha Matter 1 Treatment Response Procedure Procedure Tolerated Well Tolerated Well Pain Scale: 0-10 Numeric Is Patient Pain Free? Yes Yes Teaching: Wound Center Dressing Your Wound -Person Taught Patient,Family Patient -Teaching Method Discussion, Discussion Demonstration -Response to teaching Verbalize Verbalize understanding understanding WC - Visit Discharge Discharge Condition Stable Stable Ambulatory Status Ambulatory Ambulatory Transportation Private Auto Private Auto Accompanied by daughter self Medication Reconcilliation completed & No No provided to patient/care provider Clinical Summary of Care Provided Yes Yes Assessment/Plan Assessment/Plan (1) Head and neck cancer: CODE(S): C76.0 - Malignant neoplasm of head, face and neck (2) Delayed surgical wound healing: CODE(S): T81.89XA - Other complications of procedures, not elsewhere classified, initial encounter QUALIFIERS: Encounter type: initial encounter Qualified Code(s): T81.89XA - Other complications of procedures, not elsewhere classified, initial encounter PLAN: Wash area with antibacterial soap and apply Bactroban to wound base nickelthickness then place Swetha and base cover with gauze and paper tape daily dressings Started doxycycline 100 mg twice a day for 14 days Follow-up in 1 week (3) Nonhealing surgical wound: CODE(S): T81.89XA - Other complications of procedures, not elsewhere classified, initial encounter QUALIFIERS: Encounter type: initial encounter Qualified Code(s): T81.89XA - Other complications of procedures, not elsewhere classified, initial encounter (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 - Other specified disorders of the skin and subcutaneous tissue related to radiation; Y84.2 - Radiological procedure and radiotherapy as the cause of abnormal reaction of the patient, or of later complication, withoutmention of misadventure at the time of the procedure 02/20/23 0905 <Electronically signed by Joya Galvez NP [employer]> Cosigner Signature (if applicable): CC: ~ Signed [facility] Work Phone: [phone] 254-862005-24-2023 Progress note Author Joya Galvez [facility] February 13, 2023 11:51am Note Date/Time February 13, 2023 11:51 am [facility] [address] [place] [address] Progress Note - Wound Care 02/13/23 1147 MR#: [id number] Acct: [id number] Name: MY JAMA Rep #:[id number] : 1960 62 From: Joya Galvez NP [employer] PCP: YARI Pardo Status:REG RCR Location: History of Present Illness Date of Service: 02/13/23 Chief Complaint: 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 He received courses of chemotherapy followed by radiation treatments, which wereconcluded by the end of 2017. He recently underwent oral surgery and had 8 teeth extracted. Two extraction sites have failed to heal. On November 07, 2021, the patient underwent reconstruction of the jaw using bone from his left lower leg. 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 Progress of Wound: The jaw wound itself is filling in nicely still gets a lot of contamination in that wound with an bacteria. Tolerating medication well next week he gets his G-tube pulled and next will be his trach. 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 Subjective Subjective Patient and daughter are very happy with outcomes Objective Data Objective Data Measuring smaller looks really good starting develop new skin cells in the base still has a depth Discussed with patient about using Bactroban in the base and then putting Prismaon top see if we can cut some of the infection. Did get cultures before starting Vital Signs: Vital Signs Temp Pulse Resp BP O2 Del Method 98.8 F 80 18 126/64 H Room Air 02/13/23 08:33 02/13/23 08:33 02/13/23 08:33 02/13/23 08:33 02/13/23 08:33 Oxygen Delivery Method Room Air Weight: 130 lb Body Mass Index (BMI) 22.3 Lab / Micro Data Attestation: I reviewed the patient's lab results. Physical Exam Narrative ECOG 1 Hard of hearing Const alert, oriented x3 and no apparent distress General Appearance: cooperative and comfortable HEENT normocephalic HEENT Narrative: Reconstruction of the lower face, soft tissue edema Mouth: No thrush Eyes General Eye: normal appearance of both eyes Conjunctiva: conjunctiva normal Sclera: sclera normal Neck no lymphadenopathy and no JVD Neck Narrative: Postoperative changes and flap. Wound is covered with surgical dressing General: tracheostomy present Lymph Lymphatic: no lymphadenopathy noted Chest Chest: symmetrical chest wall rise Resp Auscultation: diminished lung sounds bilateral and diffuse Cardio regular rate and regular rhythm Jugular Venous Distention: Negative for JVD GI soft to palpation, non-tender and non-distended; Negative for hepatosplenomegaly GI Narrative: PEG tube Inspection: GI tube present no CVA tenderness Back/Spine no thoracic nor lumbar tenderness Extremity General Extremity: Negative for clubbing, cyanosis or edema Skin no rashes or lesions noted Neuro oriented x3, CN's II-XII intact bilaterally and moves all extremities Neuro Narrative: Bilateral symmetric wasting of first interosseous muscles. Coordination / Balance: [id number] test normal Speech: speech abnormal Gait (Neuro): normal gait Psych mental status grossly normal, thought process normal, cooperative and affect normal Debridement Note Debridement Note Wound debrided: Nonhealing surgical wound for cancer on left jaw Type of Debridement: Excisional debridement Anesthesia Used: 5% Lidocaine Gel Depth: Down to and including healthy tissue and in the subcutaneous layer Percentage of wound debrided: 100 Instrument Used: 5mm curette Tissue Removed: Fibrin and devitalized tissue Severity: Limited To Skin Breakdown Amount of bleeding with debridement: Mild Bleeding Controlled with: Compression and gauze Patient tolerated procedure: Patient tolerated procedure well Post-Debridement Measurements and Additional Note: Post-Debridement Measurements/Treatment - Nurse 1 - General Ulcer Assessment Start: 01/23/23 08:16 Freq: Status: Active Protocol: AB Activity Type Activity Date Activity User E-sign Co-sign Detail Recorded Client Recorded Date Recorded By Document 01/23/23 08:17 [facility] [id number] 01/23/23 08:26 [facility] Document 01/30/23 08:27 [facility] [id number] 01/30/23 08:33 [facility] Document 02/06/23 08:18 [facility] [id number] 02/06/23 08:23 [facility] Document 02/13/23 08:33 [facility] [id number] 02/13/23 08:40 [facility] 01/23/23 01/30/23 02/06/23 08:17 08:27 08:18 - Today's Visit Information Type of service Follow-up Visit Follow-up Visit Follow-up Visit (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 (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 (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 ) ) ) Arrival Mode Ambulatory Ambulatory Ambulatory Transfer Assistance None None None Accompanied by natalie Patient Identification Verified (Name & Yes Yes Yes ) Patient Requires Transmission-Based No No No Precautions Height and Weight Body Mass Index (BMI) 22.3 22.3 22.3 BMI Classification Normal Normal Normal Vital Signs Temperature (97.8 F-99.1 F) 97.9 F 99 F 98.5 F Temperature Source Temporal Temporal Temporal Pulse Rate (60-100) 67 72 69 Pulse Location Monitor Monitor Monitor Respiratory Rate (12-18) 18 18 18 Respiratory rate source Observation Observation Observation Oxygen Delivery Method Room Air Room Air Blood Pressure (90/60-120/80) 116/58 L 115/62 115/58 L Blood Pressure Mean (mm Hg) 77 79 77 Source Monitor Monitor Monitor Position Sitting Semi-Fowlers Sitting Blood Pressure Location Left Arm Left Arm Left Arm History Since Last Visit- (Skip if this is Patient's initial visit) Have you changed medications since your No No No last visit? Any new allergies or adverse reactions No No No Had a fall/change in ADL's that may No No No increase risk of falls Signs or symptoms of abuse and/or No No No neglect since last visit Have you been in the hospital since your No No No last visit? Has dressing in place as prescribed Yes Yes Yes Has compression in place as prescribed N/A No N/A Has offloadiing in place as prescribed N/A No N/A Experienced any changes in pain level or No No No management Left Footwear Regular Shoe Regular Shoe Right Footwear Regular Shoe Regular Shoe Pain Scale: 0-10 Numeric Is Patient Pain Free? Yes Yes Yes 02/13/23 08:33 WC - Today's Visit Information Type of service Follow-up Visit (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 ) Arrival Mode Ambulatory Transfer Assistance None Accompanied by natalie Patient Identification Verified (Name & Yes ) Patient Requires Transmission-Based No Precautions Height and Weight Body Mass Index (BMI) 22.3 BMI Classification Normal Vital Signs Temperature (97.8 F-99.1 F) 98.8 F Temperature Source Temporal Pulse Rate (60-100) 80 Pulse Location Monitor Respiratory Rate (12-18) 18 Respiratory rate source Observation Oxygen Delivery Method Room Air Blood Pressure (90/60-120/80) 126/64 H Blood Pressure Mean (mm Hg) 84 Source Monitor Position Sitting Blood Pressure Location Left Arm History Since Last Visit- (Skip if this is Patient's initial visit) Have you changed medications since your No last visit? Any new allergies or adverse reactions No Had a fall/change in ADL's that may No increase risk of falls Signs or symptoms of abuse and/or No neglect since last visit Have you been in the hospital since your No last visit? Has dressing in place as prescribed Yes Has compression in place as prescribed N/A Has offloadiing in place as prescribed N/A Experienced any changes in pain level or No management Left Footwear Regular Shoe Right Footwear Regular Shoe Pain Scale: 0-10 Numeric Is Patient Pain Free? Yes WC - Nurse 1 - General Ulcer Measurement Start: 01/23/23 08:16 Freq: Status: Active Protocol: Activity Type Activity Date Activity User E-sign Co-sign Detail Recorded Client Recorded Date Recorded By Document 01/23/23 08:17 [facility] [id number] 01/23/23 08:26 [facility] Document 01/30/23 08:27 [facility] [id number] 01/30/23 08:33 [facility] Document 02/06/23 08:18 [facility] [id number] 02/06/23 08:23 [facility] Document 02/13/23 08:33 [facility] [id number] 02/13/23 08:40 F 01/23/23 01/30/23 02/06/23 08:17 08:27 08:18 Wound Center Nurse 1 #1 Chin -Combined with other wound No No No -Current Size (cm) - Length 2.3 2.4 2.8 -Current Size (cm) - Width 2 1.9 2.3 -Current Size (cm) - Depth 0.3 0.2 0.2 -Total Square Cm 4.6 4.56 6.44 -Date of Last Picture (Recall this 02/06/23 field) -Photo Taken No Yes Yes -Epithelialization Small 1-33% None Present -Tunneling No No No -Undermining/Tunneling No No No -Circular Undermining No No No -Exudate Amt Medium Medium Medium -Exudate Type Serous Serosanguineous Serosanguineous -Wound Margin Distinct, Fibrotic Scar, Distinct, Outline Thickened Scar Outline Attached Attached -Granulation Amt Small (1-33%) Medium (34-66%) Small (1-33%) -Granulation Quality Thibodaux Thibodaux Red -Slough/Fibrin Yes Yes Yes -Necrosis Amt Large (67-100%) Medium (34-66%) Large (67-100%) -Necrotic Tissue Type Adherent Slough Adherent Slough Adherent Slough -Structure Exposed N/A -Texture (Candace-wound Skin Appearance) Assessed, Assessed Assessed, Scarring Scarring -Moisture (Candace-wound Skin Appearance) Assessed Assessed Assessed -Color (Candace-wound Skin Appearance) Assessed Assessed, Assessed, Erythema Erythema -Temperature (Candace-wound Skin No Abnormality No Abnormality No Abnormality Appearance) (Pt Warm) (Pt Warm) (Pt Warm) -Tenderness on Palpation (Candace-wound No No No Skin Appearance) -Ulcer Cleansing Rinsed/ Rinsed/ Rinsed/ Irrigated with Irrigated with Irrigated with Saline Saline Saline -Foul Odor after Cleansing No No No -Anesthetic Used 5% Lidocaine 5% Lidocaine 5% Lidocaine Gel Gel Gel 02/13/23 08:33 Wound Center Nurse 1 #1 Chin -Combined with other wound No -Current Size (cm) - Length 3 -Current Size (cm) - Width 2.4 -Current Size (cm) - Depth 0.3 -Total Square Cm 7.2 -Date of Last Picture (Recall this 02/13/23 field) -Photo Taken Yes -Epithelialization None Present -Tunneling No -Undermining/Tunneling No -Circular Undermining No -Exudate Amt Medium -Exudate Type Serosanguineous -Wound Margin Distinct, Outline Attached -Granulation Amt None Present (0 %) -Granulation Quality -Slough/Fibrin Yes -Necrosis Amt Large (67-100%) -Necrotic Tissue Type Adherent Slough -Structure Exposed -Texture (Candace-wound Skin Appearance) Assessed, Scarring -Moisture (Candace-wound Skin Appearance) Assessed -Color (Candace-wound Skin Appearance) Assessed, Erythema -Temperature (Candace-wound Skin No Abnormality Appearance) (Pt Warm) -Tenderness on Palpation (Candace-wound No Skin Appearance) -Ulcer Cleansing Rinsed/ Irrigated with Saline -Foul Odor after Cleansing No -Anesthetic Used 5% Lidocaine Gel WC - Nurse 2 - General Ulcer CM Notes Start: 01/23/23 08:16 Freq: Status: Active Protocol: Activity Type Activity Date Activity User E-sign Co-sign Detail Recorded Client Recorded Date Recorded By Document 01/23/23 08:48 MW [id number] 01/23/23 08:50 MW Document 01/30/23 08:46 MW [id number] 01/30/23 08:47 MW Document 02/06/23 08:39 PL [id number] 02/06/23 08:40 PL Document 02/13/23 08:45 MW [id number] 02/13/23 08:52 MW 01/23/23 01/30/23 02/06/23 08:48 08:46 08:39 Wound Center Nurse 2 #1 Chin -Time 08:48 08:46 08:27 -Correct Patient Yes Yes Yes -Correct Side, Site, Position Yes Yes Yes -Correct Procedure Yes Yes Yes -Procedure Performed Yes Yes Yes -Type of Procedure Debridement Debridement Debridement -Clinical Debridement Subcutaneous Subcutaneous Subcutaneous -Tissue Removed Subcutaneous Subcutaneous Subcutaneous -Post Debridement (cm) - Length 2.0 2.5 2.5 -Post Debridement (cm) - Width 2.3 2.0 2.5 -Post Debridement (cm) - Depth 0.5 0.5 0.5 -Total Square (Post) (cm) 4.60 5.00 6.25 -Area of Debridement (cm) - Length 2.0 2.5 2.5 -Area of Debridement (cm) - Width 2.3 2.0 2.5 -Total Square (Area) (cm) 4.60 5.00 6.25 -Tunneling No No No -Undermining/Tunneling No No No -Circular Undermining No No No -Wound/Ulcer Outcome Not Healed Not Healed Not Healed -Ulcer Cleansing Rinsed/ Rinsed/ Rinsed/ Irrigated with Irrigated with Irrigated with Saline Saline Saline -Foul Odor after Cleansing No No No -Bioengineered Tissue No No No -Bleeding Controlled with Pressure Pressure Pressure -Treatment Response Procedure Procedure Procedure Tolerated Well Tolerated Well Tolerated Well -Offloading No No -Debridement - Subq, 1st 20sq cm Yes Yes Yes Pain Scale: 0-10 Numeric Is Patient Pain Free? Yes Yes Yes 02/13/23 08:45 Wound Center Nurse 2 #1 Chin -Time 08:46 -Correct Patient Yes -Correct Side, Site, Position Yes -Correct Procedure Yes -Procedure Performed Yes -Type of Procedure Debridement -Clinical Debridement Subcutaneous -Tissue Removed Subcutaneous -Post Debridement (cm) - Length 2.4 -Post Debridement (cm) - Width 1.3 -Post Debridement (cm) - Depth 0.5 -Total Square (Post) (cm) 3.12 -Area of Debridement (cm) - Length 2.4 -Area of Debridement (cm) - Width 1.3 -Total Square (Area) (cm) 3.12 -Tunneling No -Undermining/Tunneling No -Circular Undermining No -Wound/Ulcer Outcome Not Healed -Ulcer Cleansing Rinsed/ Irrigated with Saline -Foul Odor after Cleansing No -Bioengineered Tissue No -Bleeding Controlled with Pressure -Treatment Response Procedure Tolerated Well -Offloading No -Debridement - Subq, 1st 20sq cm Yes Pain Scale: 0-10 Numeric Is Patient Pain Free? Yes WC - Nurse 3 - General Ulcer D/C NN Start: 01/23/23 08:16 Freq: Status: Active Protocol: Activity Type Activity Date Activity User E-sign Co-sign Detail Recorded Client Recorded Date Recorded By Document 01/23/23 08:56 [facility] [id number] 01/23/23 08:57 [facility] Document 01/30/23 08:47 MW [id number] 01/30/23 08:48 MW Document 02/06/23 08:41 RB [id number] 02/06/23 08:41 RB Document 02/13/23 08:54 MW [id number] 02/13/23 08:54 MW 01/23/23 01/30/23 02/06/23 08:56 08:47 08:41 [facility] Center Nurse 3 #1 Chin -Ulcer Cleansing Rinsed/ Rinsed/ Rinsed/ Irrigated with Irrigated with Irrigated with Saline Saline Saline -Foul Odor after Cleansing No No -Negative Pressure Wound Therapy N/A -Primary Dressing Applied NonAdherent NonAdherent NonAdherent Contact Layer, Contact Layer, Contact Layer, Promogran Promogran Promogran Swetha Matter Swetha Matter Swetha Matter -Other Dressing -Primary Dressing Covered/Secured with Dry Gauze, Dry Gauze Dry Gauze, Secured with Secured with Tape Tape -Other Covering silicone tape -Promogran Swetha Matter 1 1 1 Treatment Response Procedure Procedure Procedure Tolerated Well Tolerated Well Tolerated Well Pain Scale: 0-10 Numeric Is Patient Pain Free? Yes Yes Yes Teaching: Wound Center Dressing Your Wound -Person Taught Patient,Family -Teaching Method Discussion, Demonstration -Response to teaching Verbalize understanding WC - Visit Discharge Discharge Condition Stable Stable Stable Ambulatory Status Ambulatory Ambulatory Ambulatory Transportation Private Auto Private Auto Private Auto Accompanied by natalie daughter Medication Reconcilliation completed & No No provided to patient/care provider Clinical Summary of Care Provided Yes Yes 02/13/23 08:54 Wound Care Center Nurse 3 #1 Chin -Ulcer Cleansing Rinsed/ Irrigated with Saline -Foul Odor after Cleansing No -Negative Pressure Wound Therapy N/A -Primary Dressing Applied Promogran Swetha Matter -Other Dressing bactroban -Primary Dressing Covered/Secured with Dry Gauze, Secured with Tape -Other Covering -Promogran Swetha Matter 1 Treatment Response Procedure Tolerated Well Pain Scale: 0-10 Numeric Is Patient Pain Free? Yes Teaching: Wound Center Dressing Your Wound -Person Taught Patient,Family -Teaching Method Discussion, Demonstration -Response to teaching Verbalize understanding WC - Visit Discharge Discharge Condition Stable Ambulatory Status Ambulatory Transportation Private Auto Accompanied by daughter Medication Reconcilliation completed & No provided to patient/care provider Clinical Summary of Care Provided Yes Assessment/Plan Assessment/Plan (1) Head and neck cancer: CODE(S): C76.0 - Malignant neoplasm of head, face and neck (2) Delayed surgical wound healing: CODE(S): T81.89XA - Other complications of procedures, not elsewhere classified, initial encounter QUALIFIERS: Encounter type: initial encounter Qualified Code(s): T81.89XA - Other complications of procedures, not elsewhere classified, initial encounter PLAN: Wash area with antibacterial soap and apply Bactroban to wound base nickelthickness then place Swetha and base cover with gauze and paper tape daily dressings Will call with culture results Follow-up in 1 week (3) Nonhealing surgical wound: CODE(S): T81.89XA - Other complications of procedures, not elsewhere classified, initial encounter QUALIFIERS: Encounter type: initial encounter Qualified Code(s): T81.89XA - Other complications of procedures, not elsewhere classified, initial encounter (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 MY JAMA, is a 62 year old male here for a trach change. Last seen 02/12. He continues to be followed at the [place] [facility]. Continues with Shiley XLT, caps during day. Wound has continued to heal very slowly but is smaller. He comes in today with a new XLT trach for his trach changesince we didn't have one in clinic last month. No other concerns. Overall doing ok. 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 Patient completed adjuvant chemoradiation on 02/06/22. 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 CT chest with small scattered pulmonary nodules largest RUL 5mm, recommend CT chest in 1yr * 12/22/18: US guided FNA of the left neck mass +SCCa with extensive necrosis, P16 negative. * 12/31/18: Seen by medical oncologist, recommended ENT & PET scan * 01/02/19: OSH ENT consult with left fixed lymphadenopathy, small cystic lesion noted on uvula, negative laryngoscopy * 01/05/19: PET scan with 2 hypermetabolic areas in the left neck (SUV 8.6 max), and increased FDG avidity in the left pharynx (SUV 3.4) measures 1.9cm * 01/30/19: Triple endoscopy with tonsillectomy and uvulectomy removal * 02/09/19: Started chemoradiation therapy * 03/23/19: Last chemotherapy * 03/25/19: Completed chemoradiation therapy * 09/12: Loose anterior mandibular teeth/dental extraction * 09/12: CT neck w/contrast enhancing mass involving the anterior oral cavity & symphysis with bone involvement, no lymphadenopathy * 09/12: Oral cavity biopsy at [facility] +SCCa * 10/14: PET FDG avid oral cavity mass w/bone involvement SUV12, no lymphadenopathy or distant metastasis * 11/07/21: S/p triple, trach, PEG, composite resection, excision of skin and soft tissue, segmental mandibulectomy, right neck dissection, left neck exploration for vessels, reconstruction with left ALT and left fibular free flap. Path + 6.5cm SCCa, 12/11 lymph nodes + metastasis. * 11/10/21: S/p left neck exploration and revision of ALT flap (release of arterial kinking) * 12/12: TB recommends radiation +/- chemotherapy * 11/29/21: Trach changed to #4 cuffless & capped, +cellulitis of chin and fibula on bactrim * 12/03/21: Decannulated, decreased erythema * 12/05/21: ED visit for SOB, 4-0 trach replaced * 12/12: Started chemoradiation therapy * 12/18: Trach open #4 * 12/29/21: Urgent add on - trach upsized to a #6 distal XLT * 02/06/22: Completed chemoradiation * 04/02/22: Left neck wound increased in size. Cultures obtained- + MRSA - recommend bactroban * 05/14: Seeing wound care for stable midline neck wound - doing serial debridements * 06/14: Integra placement without take * 02/12: Wound continues to get smaller, XLT trach capped during the day * 03/15: Trach change * SH: * Tob: 1ppd/35 years. currently down to 2-3 cigs/day. * ETOH: beer. 12pk/week - but just cut down to a few a day * Here with daughter * By signing my name below, I, Kuldeep Braden, attest that this documentation has been prepared under the direction and in the presence of Dr. Rachel Brooks MD. * All medical record entries made by the Scribe were at my direction and personally dictated by me, Dr. Rachel Brooks. I have reviewed the chart and agree that the record accurately reflects my personal performance of the history, physical exam, discussion and plan. [id number] [place] [address] Work Phone: 1(834) 364-518205-17-2023 Progress note Author Joya Galvez [facility] February 06, 2023 8:54am Note Date/Time February 06, 2023 8:54a m [facility] [address] [place] [address] Progress Note - Wound Care 02/06/23 0851 MR#: [id number] Acct: [id number] Name: MY JAMA Rep #:[id number] : 1960 62 From: Joya Galvez NP [employer] PCP: YARI Pardo Status:REG RCR Location: History of Present Illness Date of Service: 02/06/23 Chief Complaint: 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 He received courses of chemotherapy followed by radiation treatments, which wereconcluded by the end of 2018. He recently underwent oral surgery and had 8 teeth extracted. Two extraction sites have failed to heal. On November 07, 2021, the patient underwent reconstruction of the jaw using bone from his left lower leg. 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 Progress of Wound: The jaw wound itself is filling in nicely still gets a lot of contamination in that wound with an bacteria. Tolerating medication well next week he gets his G-tube pulled and next will be his trach. Wound appears smaller this week Subjective Subjective They like the looks of the wound and is filling in Objective Data Objective Data measuring smaller and T R side is flattening out and filling in nicely Vital Signs: Vital Signs Temp Pulse Resp BP O2 Del Method 98.5 F 69 18 115/58 L Room Air 02/06/23 08:18 02/06/23 08:18 02/06/23 08:18 02/06/23 08:18 02/06/23 08:18 Oxygen Delivery Method Room Air Weight: 130 lb Body Mass Index (BMI) 22.3 Physical Exam Narrative ECOG 1 Hard of hearing Const alert, oriented x3 and no apparent distress General Appearance: cooperative and comfortable HEENT normocephalic HEENT Narrative: Reconstruction of the lower face, soft tissue edema Mouth: No thrush Eyes General Eye: normal appearance of both eyes Conjunctiva: conjunctiva normal Sclera: sclera normal Neck no lymphadenopathy and no JVD Neck Narrative: Postoperative changes and flap. Wound is covered with surgical dressing General: tracheostomy present Lymph Lymphatic: no lymphadenopathy noted Chest Chest: symmetrical chest wall rise Resp Auscultation: diminished lung sounds bilateral and diffuse Cardio regular rate and regular rhythm Jugular Venous Distention: Negative for JVD GI soft to palpation, non-tender and non-distended; Negative for hepatosplenomegaly GI Narrative: PEG tube Inspection: GI tube present no CVA tenderness Back/Spine no thoracic nor lumbar tenderness Extremity General Extremity: Negative for clubbing, cyanosis or edema Skin no rashes or lesions noted Neuro oriented x3, CN's II-XII intact bilaterally and moves all extremities Neuro Narrative: Bilateral symmetric wasting of first interosseous muscles. Coordination / Balance: [id number] test normal Speech: speech abnormal Gait (Neuro): normal gait Psych mental status grossly normal, thought process normal, cooperative and affect normal Debridement Note Debridement Note Wound debrided: L jaw surgical wound non healing Type of Debridement: Excisional debridement Anesthesia Used: 5% Lidocaine Gel Depth: Down to and including healthy tissue Percentage of wound debrided: 100 Instrument Used: 5mm curette Tissue Removed: fibrin and product Severity: Fat Layer Exposed Amount of bleeding with debridement: Mild Bleeding Controlled with: Compression and gauze Patient tolerated procedure: Patient tolerated procedure well Post-Debridement Measurements and Additional Note: Post-Debridement Measurements/Treatment WC - Nurse 1 - General Ulcer Assessment Start: 01/23/23 08:16 Freq: Status: Active Protocol: DHAVAL.ROXANA Activity Type Activity Date Activity User E-sign Co-sign Detail Recorded Client Recorded Date Recorded By Document 01/23/23 08:17 [facility] [id number] 01/23/23 08:26 [facility] Document 01/30/23 08:27 [facility] [id number] 01/30/23 08:33 [facility] Document 02/06/23 08:18 [facility] [id number] 02/06/23 08:23 [facility] 01/23/23 01/30/23 02/06/23 08:17 08:27 08:18 - Today's Visit Information Type of service Follow-up Visit Follow-up Visit Follow-up Visit (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 (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 (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 ) ) ) Arrival Mode Ambulatory Ambulatory Ambulatory Transfer Assistance None None None Accompanied by natalie Patient Identification Verified (Name & Yes Yes Yes ) Patient Requires Transmission-Based No No No Precautions Height and Weight Body Mass Index (BMI) 22.3 22.3 22.3 BMI Classification Normal Normal Normal Vital Signs Temperature (97.8 F-99.1 F) 97.9 F 99 F 98.5 F Temperature Source Temporal Temporal Temporal Pulse Rate (60-100) 67 72 69 Pulse Location Monitor Monitor Monitor Respiratory Rate (12-18) 18 18 18 Respiratory rate source Observation Observation Observation Oxygen Delivery Method Room Air Room Air Blood Pressure (90/60-120/80) 116/58 L 115/62 115/58 L Blood Pressure Mean (mm Hg) 77 79 77 Source Monitor Monitor Monitor Position Sitting Semi-Fowlers Sitting Blood Pressure Location Left Arm Left Arm Left Arm History Since Last Visit- (Skip if this is Patient's initial visit) Have you changed medications since your No No No last visit? Any new allergies or adverse reactions No No No Had a fall/change in ADL's that may No No No increase risk of falls Signs or symptoms of abuse and/or No No No neglect since last visit Have you been in the hospital since your No No No last visit? Has dressing in place as prescribed Yes Yes Yes Has compression in place as prescribed N/A No N/A Has offloadiing in place as prescribed N/A No N/A Experienced any changes in pain level or No No No management Left Footwear Regular Shoe Regular Shoe Right Footwear Regular Shoe Regular Shoe Pain Scale: 0-10 Numeric Is Patient Pain Free? Yes Yes Yes - Nurse 1 - General Ulcer Measurement Start: 01/23/23 08:16 Freq: Status: Active Protocol: Activity Type Activity Date Activity User E-sign Co-sign Detail Recorded Client Recorded Date Recorded By Document 01/23/23 08:17 [facility] [id number] 01/23/23 08:26 [facility] Document 01/30/23 08:27 [id number] 01/30/23 08:33 BM Document 02/06/23 08:18 [facility] [id number] 02/06/23 08:23 [facility] 01/23/23 01/30/23 02/06/23 08:17 08:27 08:18 Wound Center Nurse 1 #1 Chin -Combined with other wound No No No -Current Size (cm) - Length 2.3 2.4 2.8 -Current Size (cm) - Width 2 1.9 2.3 -Current Size (cm) - Depth 0.3 0.2 0.2 -Total Square Cm 4.6 4.56 6.44 -Date of Last Picture (Recall this 02/06/23 field) -Photo Taken No Yes Yes -Epithelialization Small 1-33% None Present -Tunneling No No No -Undermining/Tunneling No No No -Circular Undermining No No No -Exudate Amt Medium Medium Medium -Exudate Type Serous Serosanguineous Serosanguineous -Wound Margin Distinct, Fibrotic Scar, Distinct, Outline Thickened Scar Outline Attached Attached -Granulation Amt Small (1-33%) Medium (34-66%) Small (1-33%) -Granulation Quality Thibodaux Thibodaux Red -Slough/Fibrin Yes Yes Yes -Necrosis Amt Large (67-100%) Medium (34-66%) Large (67-100%) -Necrotic Tissue Type Adherent Slough Adherent Slough Adherent Slough -Structure Exposed N/A -Texture (Candace-wound Skin Appearance) Assessed, Assessed Assessed, Scarring Scarring -Moisture (Candace-wound Skin Appearance) Assessed Assessed Assessed -Color (Candace-wound Skin Appearance) Assessed Assessed, Assessed, Erythema Erythema -Temperature (Candace-wound Skin No Abnormality No Abnormality No Abnormality Appearance) (Pt Warm) (Pt Warm) (Pt Warm) -Tenderness on Palpation (Candace-wound No No No Skin Appearance) -Ulcer Cleansing Rinsed/ Rinsed/ Rinsed/ Irrigated with Irrigated with Irrigated with Saline Saline Saline -Foul Odor after Cleansing No No No -Anesthetic Used 5% Lidocaine 5% Lidocaine 5% Lidocaine Gel Gel Gel WC - Nurse 2 - General Ulcer CM Notes Start: 01/23/23 08:16 Freq: Status: Active Protocol: Activity Type Activity Date Activity User E-sign Co-sign Detail Recorded Client Recorded Date Recorded By Document 01/23/23 08:48 MW [id number] 01/23/23 08:50 MW Document 01/30/23 08:46 MW [id number] 01/30/23 08:47 MW Document 02/06/23 08:39 PL [id number] 02/06/23 08:40 PL 01/23/23 01/30/23 02/06/23 08:48 08:46 08:39 Wound Center Nurse 2 #1 Chin -Time 08:48 08:46 08:27 -Correct Patient Yes Yes Yes -Correct Side, Site, Position Yes Yes Yes -Correct Procedure Yes Yes Yes -Procedure Performed Yes Yes Yes -Type of Procedure Debridement Debridement Debridement -Clinical Debridement Subcutaneous Subcutaneous Subcutaneous -Tissue Removed Subcutaneous Subcutaneous Subcutaneous -Post Debridement (cm) - Length 2.0 2.5 2.5 -Post Debridement (cm) - Width 2.3 2.0 2.5 -Post Debridement (cm) - Depth 0.5 0.5 0.5 -Total Square (Post) (cm) 4.60 5.00 6.25 -Area of Debridement (cm) - Length 2.0 2.5 2.5 -Area of Debridement (cm) - Width 2.3 2.0 2.5 -Total Square (Area) (cm) 4.60 5.00 6.25 -Tunneling No No No -Undermining/Tunneling No No No -Circular Undermining No No No -Wound/Ulcer Outcome Not Healed Not Healed Not Healed -Ulcer Cleansing Rinsed/ Rinsed/ Rinsed/ Irrigated with Irrigated with Irrigated with Saline Saline Saline -Foul Odor after Cleansing No No No -Bioengineered Tissue No No No -Bleeding Controlled with Pressure Pressure Pressure -Treatment Response Procedure Procedure Procedure Tolerated Well Tolerated Well Tolerated Well -Offloading No No -Debridement - Subq, 1st 20sq cm Yes Yes Yes Pain Scale: 0-10 Numeric Is Patient Pain Free? Yes Yes Yes WC - Nurse 3 - General Ulcer D/C NN Start: 01/23/23 08:16 Freq: Status: Active Protocol: Activity Type Activity Date Activity User E-sign Co-sign Detail Recorded Client Recorded Date Recorded By Document 01/23/23 08:56 [facility] [id number] 01/23/23 08:57 [facility] Document 01/30/23 08:47 MW [id number] 01/30/23 08:48 MW Document 02/06/23 08:41 RB [id number] 02/06/23 08:41 RB 01/23/23 01/30/23 02/06/23 08:56 08:47 08:41 Wound Care Center Nurse 3 #1 Chin -Ulcer Cleansing Rinsed/ Rinsed/ Rinsed/ Irrigated with Irrigated with Irrigated with Saline Saline Saline -Foul Odor after Cleansing No No -Negative Pressure Wound Therapy N/A -Primary Dressing Applied NonAdherent NonAdherent NonAdherent Contact Layer, Contact Layer, Contact Layer, Promogran Promogran Promogran Swetha Matter Swetha Matter Swetha Matter -Primary Dressing Covered/Secured with Dry Gauze, Dry Gauze Dry Gauze, Secured with Secured with Tape Tape -Other Covering silicone tape -Promogran Swetha Matter 1 1 1 Treatment Response Procedure Procedure Procedure Tolerated Well Tolerated Well Tolerated Well Pain Scale: 0-10 Numeric Is Patient Pain Free? Yes Yes Yes Teaching: Wound Center Dressing Your Wound -Person Taught Patient,Family -Teaching Method Discussion, Demonstration -Response to teaching Verbalize understanding WC - Visit Discharge Discharge Condition Stable Stable Stable Ambulatory Status Ambulatory Ambulatory Ambulatory Transportation Private Auto Private Auto Private Auto Accompanied by natalie daughter Medication Reconcilliation completed & No No provided to patient/care provider Clinical Summary of Care Provided Yes Yes Assessment/Plan Assessment/Plan (1) Head and neck cancer: CODE(S): C76.0 - Malignant neoplasm of head, face and neck (2) Delayed surgical wound healing: CODE(S): T81.89XA - Other complications of procedures, not elsewhere classified, initial encounter QUALIFIERS: Encounter type: initial encounter Qualified Code(s): T81.89XA - Other complications of procedures, not elsewhere classified, initial encounter PLAN: Wash area with antibacterial soap and place Swetha and base cover with Adaptic gauze and paper tape daily dressings Follow-up in 1 week (3) Nonhealing surgical wound: CODE(S): T81.89XA - Other complications of procedures, not elsewhere classified, initial encounter QUALIFIERS: Encounter type: initial encounter Qualified Code(s): T81.89XA - Other complications of procedures, not elsewhere classified, initial encounter (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 - Other specified disorders of the skin and subcutaneous tissue related to radiation; Y84.2 - Radiological procedure and radiotherapy as the cause of abnormal reaction of the patient, or of later complication, withoutmention of misadventure at the time of the procedure 02/06/23 0854 <Electronically signed by Joya Galvez NP [employer]> Cosigner Signature (if applicable): CC: ~ Signed [facility] Work Phone: 1(983) 287-792405-10-2023 Progress note Author Joya Galvez [facility] January 30, 2023 9:56am Note Date/Time January 30, 2023 9:56a m [facility] [address] [place] [address] Progress Note - Wound Care 01/30/23 0953 MR#: [id number] Acct: [id number] Name: MY JAMA Rep #:[id number] : 1960 62 From: Joya Galvez NP [employer] PCP: YARI Pardo Status:REG RCR Location: History of Present Illness Date of Service: 01/30/23 Chief Complaint: 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 He received courses of chemotherapy followed by radiation treatments, which wereconcluded by the end of 2017. He recently underwent oral surgery and had 8 teeth extracted. Two extraction sites have failed to heal. On November 07, 2021, the patient underwent reconstruction of the jaw using bone from his left lower leg. 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 Progress of Wound: The jaw wound itself is filling in nicely still gets a lot of contamination in that wound with an bacteria. Tolerating medication well next week he gets his G-tube pulled and next will be his trach. Wound appears smaller this week Subjective Subjective No concerns still happy with outcomes. Patient states she is getting a smaller trach and placement. Objective Data Objective Data Debrides easily bleeds easily. Size appears smaller it seems to be honing in. We will continue using the Swetha for now Vital Signs: Vital Signs Temp Pulse Resp BP O2 Del Method 99 F 72 18 115/62 Room Air 01/30/23 08:27 01/30/23 08:27 01/30/23 08:27 01/30/23 08:27 01/23/23 08:17 Oxygen Delivery Method Room Air Weight: 130 lb Body Mass Index (BMI) 22.3 Lab / Micro Data Attestation: I reviewed the patient's lab results. Physical Exam Narrative ECOG 1 Hard of hearing Const alert, oriented x3 and no apparent distress General Appearance: cooperative and comfortable HEENT normocephalic HEENT Narrative: Reconstruction of the lower face, soft tissue edema Mouth: No thrush Eyes General Eye: normal appearance of both eyes Conjunctiva: conjunctiva normal Sclera: sclera normal Neck no lymphadenopathy and no JVD Neck Narrative: Postoperative changes and flap. Wound is covered with surgical dressing General: tracheostomy present Lymph Lymphatic: no lymphadenopathy noted Chest Chest: symmetrical chest wall rise Resp Auscultation: diminished lung sounds bilateral and diffuse Cardio regular rate and regular rhythm Jugular Venous Distention: Negative for JVD GI soft to palpation, non-tender and non-distended; Negative for hepatosplenomegaly GI Narrative: PEG tube Inspection: GI tube present no CVA tenderness Back/Spine no thoracic nor lumbar tenderness Extremity General Extremity: Negative for clubbing, cyanosis or edema Skin no rashes or lesions noted Neuro oriented x3, CN's II-XII intact bilaterally and moves all extremities Neuro Narrative: Bilateral symmetric wasting of first interosseous muscles. Coordination / Balance: [id number] test normal Speech: speech abnormal Gait (Neuro): normal gait Psych mental status grossly normal, thought process normal, cooperative and affect normal Debridement Note Debridement Note Wound debrided: Left jaw postoperative nonhealing open wound Type of Debridement: Excisional debridement Anesthesia Used: 5% Lidocaine Gel Depth: Down to and including healthy tissue and in the subcutaneous layer Percentage of wound debrided: 100 Instrument Used: 5mm curette Tissue Removed: Fibrin and devitalized tissue Severity: Fat Layer Exposed Amount of bleeding with debridement: Mild Bleeding Controlled with: Compression and gauze Patient tolerated procedure: Patient tolerated procedure well Post-Debridement Measurements and Additional Note: Post-Debridement Measurements/Treatment DHAVAL - Nurse 1 - General Ulcer Assessment Start: 01/23/23 08:16 Freq: Status: Active Protocol: BRANDAN Activity Type Activity Date Activity User E-sign Co-sign Detail Recorded Client Recorded Date Recorded By Document 01/23/23 08:17 [facility] [id number] 01/23/23 08:26 [facility] Document 01/30/23 08:27 [facility] [id number] 01/30/23 08:33 [facility] 01/23/23 01/30/23 08:17 08:27 - Today's Visit Information Type of service Follow-up Visit Follow-up Visit (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 (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 ) ) Arrival Mode Ambulatory Ambulatory Transfer Assistance None None Patient Identification Verified (Name & Yes Yes ) Patient Requires Transmission-Based No No Precautions Height and Weight Body Mass Index (BMI) 22.3 22.3 BMI Classification Normal Normal Vital Signs Temperature (97.8 F-99.1 F) 97.9 F 99 F Temperature Source Temporal Temporal Pulse Rate (60-100) 67 72 Pulse Location Monitor Monitor Respiratory Rate (12-18) 18 18 Respiratory rate source Observation Observation Oxygen Delivery Method Room Air Blood Pressure (90/60-120/80) 116/58 L 115/62 Blood Pressure Mean (mm Hg) 77 79 Source Monitor Monitor Position Sitting Semi-Fowlers Blood Pressure Location Left Arm Left Arm History Since Last Visit- (Skip if this is Patient's initial visit) Have you changed medications since your No No last visit? Any new allergies or adverse reactions No No Had a fall/change in ADL's that may No No increase risk of falls Signs or symptoms of abuse and/or No No neglect since last visit Have you been in the hospital since your No No last visit? Has dressing in place as prescribed Yes Yes Has compression in place as prescribed N/A No Has offloadiing in place as prescribed N/A No Experienced any changes in pain level or No No management Left Footwear Regular Shoe Right Footwear Regular Shoe Pain Scale: 0-10 Numeric Is Patient Pain Free? Yes Yes - Nurse 1 - General Ulcer Measurement Start: 01/23/23 08:16 Freq: Status: Active Protocol: Activity Type Activity Date Activity User E-sign Co-sign Detail Recorded Client Recorded Date Recorded By Document 01/23/23 08:17 [facility] [id number] 01/23/23 08:26 [facility] Document 01/30/23 08:27 [facility] [id number] 01/30/23 08:33 [facility] 01/23/23 01/30/23 08:17 08:27 Wound Center Nurse 1 #1 Chin -Combined with other wound No No -Current Size (cm) - Length 2.3 2.4 -Current Size (cm) - Width 2 1.9 -Current Size (cm) - Depth 0.3 0.2 -Total Square Cm 4.6 4.56 -Photo Taken No Yes -Epithelialization Small 1-33% -Tunneling No No -Undermining/Tunneling No No -Circular Undermining No No -Exudate Amt Medium Medium -Exudate Type Serous Serosanguineous -Wound Margin Distinct, Fibrotic Scar, Outline Thickened Scar Attached -Granulation Amt Small (1-33%) Medium (34-66%) -Granulation Quality [place] -Slough/Fibrin Yes Yes -Necrosis Amt Large (67-100%) Medium (34-66%) -Necrotic Tissue Type Adherent Slough Adherent Slough -Structure Exposed N/A -Texture (Candace-wound Skin Appearance) Assessed, Assessed Scarring -Moisture (Candace-wound Skin Appearance) Assessed Assessed -Color (Candace-wound Skin Appearance) Assessed Assessed, Erythema -Temperature (Candace-wound Skin No Abnormality No Abnormality Appearance) (Pt Warm) (Pt Warm) -Tenderness on Palpation (Candace-wound No No Skin Appearance) -Ulcer Cleansing Rinsed/ Rinsed/ Irrigated with Irrigated with Saline Saline -Foul Odor after Cleansing No No -Anesthetic Used 5% Lidocaine 5% Lidocaine Gel Gel WC - Nurse 2 - General Ulcer CM Notes Start: 01/23/23 08:16 Freq: Status: Active Protocol: Activity Type Activity Date Activity User E-sign Co-sign Detail Recorded Client Recorded Date Recorded By Document 01/23/23 08:48 MW [id number] 01/23/23 08:50 MW Document 01/30/23 08:46 MW [id number] 01/30/23 08:47 MW 01/23/23 01/30/23 08:48 08:46 Wound Center Nurse 2 #1 Chin -Time 08:48 08:46 -Correct Patient Yes Yes -Correct Side, Site, Position Yes Yes -Correct Procedure Yes Yes -Procedure Performed Yes Yes -Type of Procedure Debridement Debridement -Clinical Debridement Subcutaneous Subcutaneous -Tissue Removed Subcutaneous Subcutaneous -Post Debridement (cm) - Length 2.0 2.5 -Post Debridement (cm) - Width 2.3 2.0 -Post Debridement (cm) - Depth 0.5 0.5 -Total Square (Post) (cm) 4.60 5.00 -Area of Debridement (cm) - Length 2.0 2.5 -Area of Debridement (cm) - Width 2.3 2.0 -Total Square (Area) (cm) 4.60 5.00 -Tunneling No No -Undermining/Tunneling No No -Circular Undermining No No -Wound/Ulcer Outcome Not Healed Not Healed -Ulcer Cleansing Rinsed/ Rinsed/ Irrigated with Irrigated with Saline Saline -Foul Odor after Cleansing No No -Bioengineered Tissue No No -Bleeding Controlled with Pressure Pressure -Treatment Response Procedure Procedure Tolerated Well Tolerated Well -Offloading No No -Debridement - Subq, 1st 20sq cm Yes Yes Pain Scale: 0-10 Numeric Is Patient Pain Free? Yes Yes - Nurse 3 - General Ulcer D/C NN Start: 01/23/23 08:16 Freq: Status: Active Protocol: Activity Type Activity Date Activity User E-sign Co-sign Detail Recorded Client Recorded Date Recorded By Document 01/23/23 08:56 [facility] [id number] 01/23/23 08:57 BM Document 01/30/23 08:47 MW [id number] 01/30/23 08:48 MW 01/23/23 01/30/23 08:56 08:47 Wound Care Center Nurse 3 #1 Chin -Ulcer Cleansing Rinsed/ Rinsed/ Irrigated with Irrigated with Saline Saline -Foul Odor after Cleansing No No -Negative Pressure Wound Therapy N/A -Primary Dressing Applied NonAdherent NonAdherent Contact Layer, Contact Layer, Promogran Promogran Swetha Matter Swetha Matter -Primary Dressing Covered/Secured with Dry Gauze, Dry Gauze Secured with Tape -Promogran Swetha Matter 1 1 Treatment Response Procedure Procedure Tolerated Well Tolerated Well Pain Scale: 0-10 Numeric Is Patient Pain Free? Yes Yes Teaching: Wound Center Dressing Your Wound -Person Taught Patient,Family -Teaching Method Discussion, Demonstration -Response to teaching Verbalize understanding WC - Visit Discharge Discharge Condition Stable Stable Ambulatory Status Ambulatory Ambulatory Transportation Private Auto Private Auto Accompanied by natalie daughter Medication Reconcilliation completed & No provided to patient/care provider Clinical Summary of Care Provided Yes Assessment/Plan Assessment/Plan (1) Head and neck cancer: CODE(S): C76.0 - Malignant neoplasm of head, face and neck (2) Delayed surgical wound healing: CODE(S): T81.89XA - Other complications of procedures, not elsewhere classified, initial encounter QUALIFIERS: Encounter type: initial encounter Qualified Code(s): T81.89XA - Other complications of procedures, not elsewhere classified, initial encounter PLAN: Wash area with antibacterial soap and place Swetha and base cover with Adaptic gauze and paper tape daily dressings Finished antibiotics levofloxacin 500 mg daily for 14 days Follow-up in 1 week (3) Nonhealing surgical wound: CODE(S): T81.89XA - Other complications of procedures, not elsewhere classified, initial encounter QUALIFIERS: Encounter type: initial encounter Qualified Code(s): T81.89XA - Other complications of procedures, not elsewhere classified, initial encounter (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 - Other specified disorders of the skin and subcutaneous tissue related to radiation; Y84.2 - Radiological procedure and radiotherapy as the cause of abnormal reaction of the patient, or of later complication, withoutmention of misadventure at the time of the procedure 01/30/23 0956 <Electronically signed by Joya Galvez NP [employer]> Cosigner Signature (if applicable): CC: ~ Signed [facility] Work Phone: 1(485) 664-151105-03-2023 Progress note Author Joya Galvez [facility] January 23, 2023 9:45am Note Date/Time January 23, 2023 9:45am [facility] [address] [place] [address] Progress Note - Wound Care 01/23/23 0942 MR#: [id number] Acct: [id number] Name: MY JAMA Rep #:[id number] : 1960 62 From: Joya Galvez NP [employer] PCP: YARI Pardo Status:REG RCR Location: History of Present Illness Date of Service: 01/23/23 Chief Complaint: 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 He received courses of chemotherapy followed by radiation treatments, which wereconcluded by the end of 2017. He recently underwent oral surgery and had 8 teeth extracted. Two extraction sites have failed to heal. On November 07, 2021, the patient underwent reconstruction of the jaw using bone from his left lower leg. 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 Progress of Wound: The jaw wound itself is filling in nicely still gets a lot of contamination in that wound with an bacteria. Tolerating medication well next week he gets his G-tube pulled and next will be his trach. Subjective Subjective Daughter and patient are pleased with outcomes Objective Data Objective Data Measuring smaller doing well less depth Vital Signs: Vital Signs Temp Pulse Resp BP O2 Del Method 97.9 F 67 18 116/58 L Room Air 01/23/23 08:17 01/23/23 08:17 01/23/23 08:17 01/23/23 08:17 01/23/23 08:17 Oxygen Delivery Method Room Air Weight: 130 lb Body Mass Index (BMI) 22.3 Lab / Micro Data Attestation: I reviewed the patient's lab results. Physical Exam Narrative ECOG 1 Hard of hearing Const alert, oriented x3 and no apparent distress General Appearance: cooperative and comfortable HEENT normocephalic HEENT Narrative: Reconstruction of the lower face, soft tissue edema Mouth: No thrush Eyes General Eye: normal appearance of both eyes Conjunctiva: conjunctiva normal Sclera: sclera normal Neck no lymphadenopathy and no JVD Neck Narrative: Postoperative changes and flap. Wound is covered with surgical dressing General: tracheostomy present Lymph Lymphatic: no lymphadenopathy noted Chest Chest: symmetrical chest wall rise Resp Auscultation: diminished lung sounds bilateral and diffuse Cardio regular rate and regular rhythm Jugular Venous Distention: Negative for JVD GI soft to palpation, non-tender and non-distended; Negative for hepatosplenomegaly GI Narrative: PEG tube Inspection: GI tube present no CVA tenderness Back/Spine no thoracic nor lumbar tenderness Extremity General Extremity: Negative for clubbing, cyanosis or edema Skin no rashes or lesions noted Neuro oriented x3, CN's II-XII intact bilaterally and moves all extremities Neuro Narrative: Bilateral symmetric wasting of first interosseous muscles. Coordination / Balance: [id number]-[id number]-fmor test normal Speech: speech abnormal Gait (Neuro): normal gait Psych mental status grossly normal, thought process normal, cooperative and affect normal Debridement Note Debridement Note Wound debrided: Left jaw post surgical nonhealing Laterality: Left Type of Debridement: Excisional debridement Anesthesia Used: 5% Lidocaine Gel Depth: Down to and including healthy tissue and in the subcutaneous layer Percentage of wound debrided: 100 Instrument Used: 5mm curette Tissue Removed: Devitalized tissue and slough and fibrin Severity: Fat Layer Exposed Amount of bleeding with debridement: Mild Bleeding Controlled with: Compression and gauze Patient tolerated procedure: Patient tolerated procedure well Post-Debridement Measurements and Additional Note: Post-Debridement Measurements/Treatment DHAVAL - Nurse 1 - General Ulcer Assessment Start: 01/23/23 08:16 Freq: Status: Active Protocol: BRANDAN Activity Type Activity Date Activity User E-sign Co-sign Detail Recorded Client Recorded Date Recorded By Document 01/23/23 08:17 [facility] [id number] 01/23/23 08:26 [facility] 01/23/23 08:17 WC - Today's Visit Information Type of service Follow-up Visit (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 ) Arrival Mode Ambulatory Transfer Assistance None Patient Identification Verified (Name & Yes ) Patient Requires Transmission-Based No Precautions Height and Weight Body Mass Index (BMI) 22.3 BMI Classification Normal Vital Signs Temperature (97.8 F-99.1 F) 97.9 F Temperature Source Temporal Pulse Rate (60-100) 67 Pulse Location Monitor Respiratory Rate (12-18) 18 Respiratory rate source Observation Oxygen Delivery Method Room Air Blood Pressure (90/60-120/80) 116/58 L Blood Pressure Mean (mm Hg) 77 Source Monitor Position Sitting Blood Pressure Location Left Arm History Since Last Visit- (Skip if this is Patient's initial visit) Have you changed medications since your No last visit? Any new allergies or adverse reactions No Had a fall/change in ADL's that may No increase risk of falls Signs or symptoms of abuse and/or No neglect since last visit Have you been in the hospital since your No last visit? Has dressing in place as prescribed Yes Has compression in place as prescribed N/A Has offloadiing in place as prescribed N/A Experienced any changes in pain level or No management Left Footwear Regular Shoe Right Footwear Regular Shoe Pain Scale: 0-10 Numeric Is Patient Pain Free? Yes - Nurse 1 - General Ulcer Measurement Start: 01/23/23 08:16 Freq: Status: Active Protocol: Activity Type Activity Date Activity User E-sign Co-sign Detail Recorded Client Recorded Date Recorded By Document 01/23/23 08:17 [facility] [id number] 01/23/23 08:26 [facility] 01/23/23 08:17 Wound Center Nurse 1 #1 Chin -Combined with other wound No -Current Size (cm) - Length 2.3 -Current Size (cm) - Width 2 -Current Size (cm) - Depth 0.3 -Total Square Cm 4.6 -Photo Taken No -Epithelialization Small 1-33% -Tunneling No -Undermining/Tunneling No -Circular Undermining No -Exudate Amt Medium -Exudate Type Serous -Wound Margin Distinct, Outline Attached -Granulation Amt Small (1-33%) -Granulation Quality [place] -Slough/Fibrin Yes -Necrosis Amt Large (67-100%) -Necrotic Tissue Type Adherent Slough -Texture (Candace-wound Skin Appearance) Assessed, Scarring -Moisture (Candace-wound Skin Appearance) Assessed -Color (Candace-wound Skin Appearance) Assessed -Temperature (Candace-wound Skin No Abnormality Appearance) (Pt Warm) -Tenderness on Palpation (Candace-wound No Skin Appearance) -Ulcer Cleansing Rinsed/ Irrigated with Saline -Foul Odor after Cleansing No -Anesthetic Used 5% Lidocaine Gel WC - Nurse 2 - General Ulcer CM Notes Start: 01/23/23 08:16 Freq: Status: Active Protocol: Activity Type Activity Date Activity User E-sign Co-sign Detail Recorded Client Recorded Date Recorded By Document 01/23/23 08:48 MW [id number] 01/23/23 08:50 MW 01/23/23 08:48 Wound Center Nurse 2 -Time 08:48 -Correct Patient Yes -Correct Side, Site, Position Yes -Correct Procedure Yes -Procedure Performed Yes -Type of Procedure Debridement -Clinical Debridement Subcutaneous -Tissue Removed Subcutaneous -Post Debridement (cm) - Length 2.0 -Post Debridement (cm) - Width 2.3 -Post Debridement (cm) - Depth 0.5 -Total Square (Post) (cm) 4.60 -Area of Debridement (cm) - Length 2.0 -Area of Debridement (cm) - Width 2.3 -Total Square (Area) (cm) 4.60 -Tunneling No -Undermining/Tunneling No -Circular Undermining No -Wound/Ulcer Outcome Not Healed -Ulcer Cleansing Rinsed/ Irrigated with Saline -Foul Odor after Cleansing No -Bioengineered Tissue No -Bleeding Controlled with Pressure -Treatment Response Procedure Tolerated Well -Offloading No -Debridement - Subq, 1st 20sq cm Yes Pain Scale: 0-10 Numeric Is Patient Pain Free? Yes WC - Nurse 3 - General Ulcer D/C NN Start: 01/23/23 08:16 Freq: Status: Active Protocol: Activity Type Activity Date Activity User E-sign Co-sign Detail Recorded Client Recorded Date Recorded By Document 01/23/23 08:56 [facility] [id number] 01/23/23 08:57 [facility] 01/23/23 08:56 Wound Care Center Nurse 3 #1 Chin -Ulcer Cleansing Rinsed/ Irrigated with Saline -Foul Odor after Cleansing No -Primary Dressing Applied NonAdherent Contact Layer, Promogran Swetha Matter -Primary Dressing Covered/Secured with Dry Gauze, Secured with Tape -Promogran Swetha Matter 1 Treatment Response Procedure Tolerated Well Pain Scale: 0-10 Numeric Is Patient Pain Free? Yes WC - Visit Discharge Discharge Condition Stable Ambulatory Status Ambulatory Transportation Private Auto Accompanied by natalie Assessment/Plan Assessment/Plan (1) Head and neck cancer: CODE(S): C76.0 - Malignant neoplasm of head, face and neck (2) Delayed surgical wound healing: CODE(S): T81.89XA - Other complications of procedures, not elsewhere classified, initial encounter QUALIFIERS: Encounter type: initial encounter Qualified Code(s): T81.89XA - Other complications of procedures, not elsewhere classified, initial encounter PLAN: Wash area with antibacterial soap and place Swetha and base cover with Adaptic gauze and paper tape daily dressings Cultures obtained are positive patient continue antibiotics levofloxacin 500 mgdaily for 14 days Follow-up in 1 week (3) Nonhealing surgical wound: CODE(S): T81.89XA - Other complications of procedures, not elsewhere classified, initial encounter QUALIFIERS: Encounter type: initial encounter Qualified Code(s): T81.89XA - Other complications of procedures, not elsewhere classified, initial encounter (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 - Other specified disorders of the skin and subcutaneous tissue related to radiation; Y84.2 - Radiological procedure and radiotherapy as the cause of abnormal reaction of the patient, or of later complication, withoutmention of misadventure at the time of the procedure 01/23/23 0945 <Electronically signed by Joya Galvez NP [employer]> Cosigner Signature (if applicable): CC: ~ Signed [facility] Work Phone: 1(385) 583-216304-26-2023 Progress note Author Joya Galvez [facility] January 16, 2023 10:57am Note Date/Time January 16, 2023 10: 43am [facility] [address] [place] [address] Progress Note - Wound Care 01/16/23 1040 MR#: [id number] Acct: [id number] Name: MY JAMA Rep #:[id number] : 1960 62 From: Joya HOODC PCP: YARI Pardo Status:REG RCR Location: History of Present Illness Date of Service: 01/16/23 Chief Complaint: 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 He received courses of chemotherapy followed by radiation treatments, which wereconcluded by the end of 2018. He recently underwent oral surgery and had 8 teeth extracted. Two extraction sites have failed to heal. On November 07, 2021, the patient underwent reconstruction of the jaw using bone from his left lower leg. 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 Progress of Wound: We have been using Swetha on his wound base and it showing more shallow and seems to be filling in better. Measurements for the open area are smaller depth is about the same in the deep area. We will reculture, daughter felt there was more slough this week. Subjective Subjective Patient is pleased with outcomes and started his new antibiotic Objective Data Objective Data As above cultures were positive for anaerobes and he is filling in nicely specially the left side of the wound is more shallow and filling in nicely and becoming part of his chin right side still has depth but cleans up well Vital Signs: Vital Signs Temp Pulse Resp BP O2 Del Method 97 F L 73 18 117/55 L Trach Collar 01/16/23 08:32 01/16/23 08:32 01/16/23 08:32 01/16/23 08:32 01/02/23 08:29 Oxygen Delivery Method Trach Collar Weight: 130 lb Body Mass Index (BMI) 22.3 Lab / Micro Data Micro: Microbiology 01/09/23 09:00 Wound - Face Gram Stain - Final 01/09/23 09:00 Wound - Face Wound Culture - Final Pseudomonas aeruginosa Meth. resistant Staph. aureus 01/09/23 09:00 Wound - Face Anaerobic Culture - Final Anaerobic cocci Physical Exam Narrative ECOG 1 Hard of hearing Const alert, oriented x3 and no apparent distress General Appearance: cooperative and comfortable HEENT normocephalic HEENT Narrative: Reconstruction of the lower face, soft tissue edema Mouth: No thrush Eyes General Eye: normal appearance of both eyes Conjunctiva: conjunctiva normal Sclera: sclera normal Neck no lymphadenopathy and no JVD Neck Narrative: Postoperative changes and flap. Wound is covered with surgical dressing General: tracheostomy present Lymph Lymphatic: no lymphadenopathy noted Chest Chest: symmetrical chest wall rise Resp Auscultation: diminished lung sounds bilateral and diffuse Cardio regular rate and regular rhythm Jugular Venous Distention: Negative for JVD GI soft to palpation, non-tender and non-distended; Negative for hepatosplenomegaly GI Narrative: PEG tube Inspection: GI tube present no CVA tenderness Back/Spine no thoracic nor lumbar tenderness Extremity General Extremity: Negative for clubbing, cyanosis or edema Skin no rashes or lesions noted Neuro oriented x3, CN's II-XII intact bilaterally and moves all extremities Neuro Narrative: Bilateral symmetric wasting of first interosseous muscles. Coordination / Balance: [id number]-zf-vttm test normal Speech: speech abnormal Gait (Neuro): normal gait Psych mental status grossly normal, thought process normal, cooperative and affect normal Debridement Note Debridement Note Wound debrided: Left jaw nonhealing surgical wound Type of Debridement: Excisional debridement Anesthesia Used: 5% Lidocaine Gel Depth: in the subcutaneous layer Percentage of wound debrided: 100 Instrument Used: 5mm curette Tissue Removed: Fibrin and devitalized tissue Severity: Fat Layer Exposed Amount of bleeding with debridement: Mild Bleeding Controlled with: Compression and gauze Patient tolerated procedure: Patient tolerated procedure well Post-Debridement Measurements and Additional Note: Post-Debridement Measurements/Treatment WC - Nurse 1 - General Ulcer Assessment Start: 12/26/22 08:31 Freq: Status: Active Protocol: BRANDAN Activity Type Activity Date Activity User E-sign Co-sign Detail Recorded Client Recorded Date Recorded By Document 12/26/22 08:31 PL [id number] 12/26/22 08:39 PL Document 01/02/23 08:29 JF [id number] 01/02/23 08:33 JF Document 01/09/23 08:38 RB [id number] 01/09/23 08:47 RB Document 01/16/23 08:32 RB [id number] 01/16/23 08:34 RB 12/26/22 01/02/23 01/09/23 08:31 08:29 08:38 WC - Today's Visit Information Type of service Follow-up Visit Follow-up Visit Follow-up Visit (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 (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 (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 ) ) ) Arrival Mode Ambulatory Ambulatory Ambulatory Transfer Assistance None None Patient Identification Verified (Name & Yes Yes Yes ) Patient Requires Transmission-Based No No No Precautions Safety Precautions NA Height and Weight Body Mass Index (BMI) 22.3 22.3 22.3 BMI Classification Normal Normal Normal Vital Signs Temperature (97.8 F-99.1 F) 97.0 F L 97.4 F L 97 F L Temperature Source Temporal Temporal Temporal Pulse Rate (60-100) 75 75 71 Pulse Location Monitor Monitor Respiratory Rate (12-18) 20 H 16 18 Respiratory rate source Observation Observation Oxygen Delivery Method Trach Collar Blood Pressure (90/60-120/80) 129/61 H 124/57 H 124/59 H Blood Pressure Mean (mm Hg) 83 79 80 Source Monitor Monitor Position Semi-Fowlers Semi-Fowlers Blood Pressure Location Left Arm Left Arm History Since Last Visit- (Skip if this is Patient's initial visit) Have you changed medications since your No No No last visit? Any new allergies or adverse reactions No No No Had a fall/change in ADL's that may No No No increase risk of falls Signs or symptoms of abuse and/or No No No neglect since last visit Have you been in the hospital since your No No No last visit? Has dressing in place as prescribed Yes Yes Yes Has compression in place as prescribed N/A N/A No Has offloadiing in place as prescribed N/A N/A No Experienced any changes in pain level or No No No management Left Footwear Slipper Right Footwear Regular Shoe Pain Scale: 0-10 Numeric Is Patient Pain Free? Yes Yes Yes 01/16/23 08:32 WC - Today's Visit Information Type of service Follow-up Visit (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 ) Arrival Mode Ambulatory Transfer Assistance None Patient Identification Verified (Name & Yes ) Patient Requires Transmission-Based No Precautions Safety Precautions Height and Weight Body Mass Index (BMI) 22.3 BMI Classification Normal Vital Signs Temperature (97.8 F-99.1 F) 97 F L Temperature Source Temporal Pulse Rate (60-100) 73 Pulse Location Monitor Respiratory Rate (12-18) 18 Respiratory rate source Observation Oxygen Delivery Method Blood Pressure (90/60-120/80) 117/55 L Blood Pressure Mean (mm Hg) 75 Source Monitor Position Semi-Fowlers Blood Pressure Location Left Arm History Since Last Visit- (Skip if this is Patient's initial visit) Have you changed medications since your No last visit? Any new allergies or adverse reactions No Had a fall/change in ADL's that may No increase risk of falls Signs or symptoms of abuse and/or No neglect since last visit Have you been in the hospital since your No last visit? Has dressing in place as prescribed Yes Has compression in place as prescribed No Has offloadiing in place as prescribed No Experienced any changes in pain level or No management Left Footwear Right Footwear Pain Scale: 0-10 Numeric Is Patient Pain Free? Yes - Nurse 1 - General Ulcer Measurement Start: 12/26/22 08:31 Freq: Status: Active Protocol: Activity Type Activity Date Activity User E-sign Co-sign Detail Recorded Client Recorded Date Recorded By Document 12/26/22 08:31 PL [id number] 12/26/22 08:39 PL Document 01/02/23 08:29 JF [id number] 01/02/23 08:33 JF Document 01/09/23 08:38 RB [id number] 01/09/23 08:47 RB Document 01/16/23 08:32 RB [id number] 01/16/23 08:34 RB 0401/02/23 01/09/23 08:31 08:29 08:38 Wound Center Nurse 1 #1 Chin -Combined with other wound No No No -Current Size (cm) - Length 2.0 3.0 2 -Current Size (cm) - Width 3.0 2.8 2.4 -Current Size (cm) - Depth 0.2 0.4 0.4 -Total Square Cm 6.00 8.40 4.8 -Photo Taken No Yes Yes -Epithelialization Medium 34-66% None Present -Tunneling No -Undermining/Tunneling No No -Circular Undermining No No -Exudate Amt Medium Medium Large -Exudate Type Serosanguineous Serosanguineous Serosanguineous -Wound Margin Flat & Intact Thickened & Rolled Under -Granulation Amt Medium (34-66%) Medium (34-66%) Medium (34-66%) -Granulation Quality Thibodaux Thibodaux Thibodaux -Slough/Fibrin Yes Yes Yes -Necrosis Amt Medium (34-66%) Small (1-33%) Medium (34-66%) -Necrotic Tissue Type Adherent Slough Adherent Slough Adherent Slough -Structure Exposed N/A N/A -Texture (Candace-wound Skin Appearance) No Abnormality Assessed Assessed -Moisture (Candace-wound Skin Appearance) No Abnormality Assessed,Dry/ Assessed Scaly -Color (Candace-wound Skin Appearance) No Abnormality Assessed Assessed -Temperature (Candace-wound Skin No Abnormality No Abnormality Appearance) (Pt Warm) (Pt Warm) -Tenderness on Palpation (Candace-wound No No Skin Appearance) -Ulcer Cleansing Rinsed/ Rinsed/ Wound Cleanser Irrigated with Irrigated with Saline Saline -Foul Odor after Cleansing No No -Anesthetic Used 5% Lidocaine 5% Lidocaine 5% Lidocaine Gel Gel Gel Lower Limb Edema Present NA 01/16/23 08:32 Wound Center Nurse 1 #1 Chin -Combined with other wound No -Current Size (cm) - Length 2.2 -Current Size (cm) - Width 2 -Current Size (cm) - Depth 0.5 -Total Square Cm 4.4 -Photo Taken -Epithelialization -Tunneling No -Undermining/Tunneling No -Circular Undermining No -Exudate Amt Medium -Exudate Type Serosanguineous -Wound Margin Distinct, Outline Attached -Granulation Amt Medium (34-66%) -Granulation Quality [place] -Slough/Fibrin Yes -Necrosis Amt Medium (34-66%) -Necrotic Tissue Type Adherent Slough -Structure Exposed N/A -Texture (Candace-wound Skin Appearance) Assessed -Moisture (Candace-wound Skin Appearance) Assessed -Color (Candace-wound Skin Appearance) Assessed -Temperature (Candace-wound Skin No Abnormality Appearance) (Pt Warm) -Tenderness on Palpation (Candace-wound No Skin Appearance) -Ulcer Cleansing Wound Cleanser -Foul Odor after Cleansing No -Anesthetic Used 5% Lidocaine Gel Lower Limb Edema Present WC - Nurse 2 - General Ulcer CM Notes Start: 12/26/22 08:31 Freq: Status: Active Protocol: Activity Type Activity Date Activity User E-sign Co-sign Detail Recorded Client Recorded Date Recorded By Document 12/26/22 08:43 MW [id number] 12/26/22 08:45 MW Document 01/02/23 08:47 MW [id number] 01/02/23 08:50 MW Document 01/09/23 08:59 MW [id number] 01/09/23 09:01 MW Document 01/16/23 08:37 MW [id number] 01/16/23 08:40 MW 12/26/22 01/02/23 01/09/23 08:43 08:47 08:59 Wound Center Nurse 2 #1 Chin -Time 08:44 08:48 09:00 -Correct Patient Yes Yes Yes -Correct Side, Site, Position Yes Yes Yes -Correct Procedure Yes Yes Yes -Procedure Performed Yes Yes Yes -Type of Procedure Debridement Debridement Debridement -Clinical Debridement Subcutaneous Subcutaneous Subcutaneous -Tissue Removed Subcutaneous Subcutaneous Subcutaneous -Post Debridement (cm) - Length 2.0 3.0 2.8 -Post Debridement (cm) - Width 1.8 2.0 2.4 -Post Debridement (cm) - Depth 0.5 0.4 0.5 -Total Square (Post) (cm) 3.60 6.00 6.72 -Area of Debridement (cm) - Length 2.0 3.0 2.8 -Area of Debridement (cm) - Width 1.8 2.0 2.4 -Total Square (Area) (cm) 3.60 6.00 6.72 -Tunneling No No No -Undermining/Tunneling No No No -Circular Undermining No No No -Wound/Ulcer Outcome Not Healed Not Healed Not Healed -Ulcer Cleansing Rinsed/ Rinsed/ Rinsed/ Irrigated with Irrigated with Irrigated with Saline Saline Saline -Foul Odor after Cleansing No No No -Bioengineered Tissue No No No -Bleeding Controlled with Pressure Pressure Pressure -Treatment Response Procedure Procedure Procedure Tolerated Well Tolerated Well Tolerated Well -Offloading No No No -Debridement - Subq, 1st 20sq cm Yes Yes Yes Pain Scale: 0-10 Numeric Is Patient Pain Free? Yes Yes Yes 01/16/23 08:37 Wound Center Nurse 2 #1 Chin -Time 08:37 -Correct Patient Yes -Correct Side, Site, Position Yes -Correct Procedure Yes -Procedure Performed Yes -Type of Procedure Debridement -Clinical Debridement Subcutaneous -Tissue Removed Subcutaneous -Post Debridement (cm) - Length 2.2 -Post Debridement (cm) - Width 1.8 -Post Debridement (cm) - Depth 0.5 -Total Square (Post) (cm) 3.96 -Area of Debridement (cm) - Length 2.2 -Area of Debridement (cm) - Width 1.8 -Total Square (Area) (cm) 3.96 -Tunneling No -Undermining/Tunneling No -Circular Undermining No -Wound/Ulcer Outcome Not Healed -Ulcer Cleansing Rinsed/ Irrigated with Saline -Foul Odor after Cleansing No -Bioengineered Tissue No -Bleeding Controlled with Pressure -Treatment Response Procedure Tolerated Well -Offloading No -Debridement - Subq, 1st 20sq cm Yes Pain Scale: 0-10 Numeric Is Patient Pain Free? Yes WC - Nurse 3 - General Ulcer D/C NN Start: 12/26/22 08:31 Freq: Status: Active Protocol: Activity Type Activity Date Activity User E-sign Co-sign Detail Recorded Client Recorded Date Recorded By Document 12/26/22 08:49 MW [id number] 12/26/22 08:49 MW Document 01/02/23 08:51 MW [id number] 01/02/23 08:51 MW Document 01/09/23 09:07 MW [id number] 01/09/23 09:08 MW Document 01/16/23 08:40 MW [id number] 01/16/23 08:41 MW 12/26/22 01/02/23 01/09/23 08:49 08:51 09:07 Wound Care Center Nurse 3 #1 Chin -Ulcer Cleansing Rinsed/ Rinsed/ Rinsed/ Irrigated with Irrigated with Irrigated with Saline Saline Saline -Foul Odor after Cleansing No No No -Negative Pressure Wound Therapy N/A N/A N/A -Primary Dressing Applied NonAdherent NonAdherent NonAdherent Contact Layer, Contact Layer, Contact Layer, Promogran Promogran Promogran Swetha Matter Swetha Matter Swetah Matter -Primary Dressing Covered/Secured with Dry Gauze, Dry Gauze, Dry Gauze, Secured with Secured with Secured with Tape Tape Tape -Promogran Swetha Matter 1 1 1 Treatment Response Procedure Procedure Procedure Tolerated Well Tolerated Well Tolerated Well Pain Scale: 0-10 Numeric Is Patient Pain Free? Yes Yes Yes Teaching: Wound Center Dressing Your Wound -Person Taught Patient Patient,Family Patient,Family -Teaching Method Discussion, Discussion, Discussion, Demonstration Demonstration Demonstration -Response to teaching Verbalize Verbalize Verbalize understanding understanding understanding WC - Visit Discharge Discharge Condition Stable Stable Stable Ambulatory Status Ambulatory Ambulatory Ambulatory Transportation Private Auto Private Auto Private Auto Accompanied by daughter daughter daughter Medication Reconcilliation completed & No No No provided to patient/care provider Clinical Summary of Care Provided Yes Yes Yes 01/16/23 08:40 Wound Care Center Nurse 3 #1 Chin -Ulcer Cleansing Rinsed/ Irrigated with Saline -Foul Odor after Cleansing No -Negative Pressure Wound Therapy N/A -Primary Dressing Applied NonAdherent Contact Layer, Promogran Swetha Matter -Primary Dressing Covered/Secured with Dry Gauze, Secured with Tape -Promogran Swetha Matter 1 Treatment Response Procedure Tolerated Well Pain Scale: 0-10 Numeric Is Patient Pain Free? Yes Teaching: Wound Center Dressing Your Wound -Person Taught Patient -Teaching Method Discussion, Demonstration -Response to teaching Verbalize understanding WC - Visit Discharge Discharge Condition Stable Ambulatory Status Ambulatory Transportation Private Auto Accompanied by self Medication Reconcilliation completed & No provided to patient/care provider Clinical Summary of Care Provided Yes Assessment/Plan Assessment/Plan (1) Head and neck cancer: CODE(S): C76.0 - Malignant neoplasm of head, face and neck (2) Delayed surgical wound healing: CODE(S): T81.89XA - Other complications of procedures, not elsewhere classified, initial encounter QUALIFIERS: Encounter type: initial encounter Qualified Code(s): T81.89XA - Other complications of procedures, not elsewhere classified, initial encounter PLAN: Wash area with antibacterial soap and place Swetha and base cover with Adaptic gauze and paper tape daily dressings Cultures obtained are positive patient started on antibiotics levofloxacin 500 mg daily for 14 days Follow-up in 1 week (3) Nonhealing surgical wound: CODE(S): T81.89XA - Other complications of procedures, not elsewhere classified, initial encounter QUALIFIERS: Encounter type: initial encounter Qualified Code(s): T81.89XA - Other complications of procedures, not elsewhere classified, initial encounter (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 - Other specified disorders of the skin and subcutaneous tissue related to radiation; Y84.2 - Radiological procedure and radiotherapy as the cause of abnormal reaction of the patient, or of later complication, withoutmention of misadventure at the time of the procedure 01/16/23 1057 <Electronically signed by Joya Galvez NP [employer]> Cosigner Signature (if applicable): CC: ~ Signed [facility] Work Phone: [phone] 373-368704-19-2023 Progress note Author Joya Galvez [facility] January 09, 2023 9:35am Note Date/Time January 09, 2023 9:3 5am [facility] [address] [place] [id number] Progress Note - Wound Care 01/09/23 0932 MR#: [id number] Acct: [id number] Name: MY JAMA Rep #:[id number] : 1960 62 From: Joya Galvez NP [employer] PCP: YARI Pardo Status:REG RCR Location: History of Present Illness Date of Service: 01/09/23 Chief Complaint: 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 He received courses of chemotherapy followed by radiation treatments, which wereconcluded by the end of 2017. He recently underwent oral surgery and had 8 teeth extracted. Two extraction sites have failed to heal. On November 07, 2021, the patient underwent reconstruction of the jaw using bone from his left lower leg. 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 Progress of Wound: We have been using Swetha on his wound base and it showing more shallow and seems to be filling in better. Measurements for the open area are smaller depth is about the same in the deep area. We will reculture, daughter felt there was more slough this week. Subjective Subjective Patient is happy with results Objective Data Objective Data Wound Walterriz easily bleeds easily the right side of the wound is becoming more shallow and filling and the left sides the deeper side and it still about the same and depth. Vital Signs: Vital Signs Temp Pulse Resp BP O2 Del Method 97 F L 71 18 124/59 H Trach Collar 01/09/23 08:38 01/09/23 08:38 01/09/23 08:38 01/09/23 08:38 01/02/23 08:29 Oxygen Delivery Method Trach Collar Weight: 130 lb Body Mass Index (BMI) 22.3 Physical Exam Narrative ECOG 1 Hard of hearing Const alert, oriented x3 and no apparent distress General Appearance: cooperative and comfortable HEENT normocephalic HEENT Narrative: Reconstruction of the lower face, soft tissue edema Mouth: No thrush Eyes General Eye: normal appearance of both eyes Conjunctiva: conjunctiva normal Sclera: sclera normal Neck no lymphadenopathy and no JVD Neck Narrative: Postoperative changes and flap. Wound is covered with surgical dressing General: tracheostomy present Lymph Lymphatic: no lymphadenopathy noted Chest Chest: symmetrical chest wall rise Resp Auscultation: diminished lung sounds bilateral and diffuse Cardio regular rate and regular rhythm Jugular Venous Distention: Negative for JVD GI soft to palpation, non-tender and non-distended; Negative for hepatosplenomegaly GI Narrative: PEG tube Inspection: GI tube present no CVA tenderness Back/Spine no thoracic nor lumbar tenderness Extremity General Extremity: Negative for clubbing, cyanosis or edema Skin no rashes or lesions noted Neuro oriented x3, CN's II-XII intact bilaterally and moves all extremities Neuro Narrative: Bilateral symmetric wasting of first interosseous muscles. Coordination / Balance: [id number]-[id number] test normal Speech: speech abnormal Gait (Neuro): normal gait Psych mental status grossly normal, thought process normal, cooperative and affect normal Debridement Note Debridement Note Wound debrided: Left jaw postsurgery nonhealing open wound Type of Debridement: Excisional debridement Anesthesia Used: 5% Lidocaine Gel Depth: Down to and including healthy tissue and in the subcutaneous layer Percentage of wound debrided: 100 Instrument Used: 5mm curette Tissue Removed: Fibrin and slough Severity: Fat Layer Exposed Amount of bleeding with debridement: Mild Bleeding Controlled with: Compression and gauze Patient tolerated procedure: Patient tolerated procedure well Post-Debridement Measurements and Additional Note: Post-Debridement Measurements/Treatment DHAVAL - Nurse 1 - General Ulcer Assessment Start: 12/26/22 08:31 Freq: Status: Active Protocol: BRANDAN Activity Type Activity Date Activity User E-sign Co-sign Detail Recorded Client Recorded Date Recorded By Document 12/26/22 08:31 PL [id number] 12/26/22 08:39 PL Document 01/02/23 08:29 JF [id number] 01/02/23 08:33 JF Document 01/09/23 08:38 RB [id number] 01/09/23 08:47 RB 12/26/22 01/02/23 01/09/23 08:31 08:29 08:38 - Today's Visit Information Type of service Follow-up Visit Follow-up Visit Follow-up Visit (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 (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 (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 ) ) ) Arrival Mode Ambulatory Ambulatory Ambulatory Transfer Assistance None None Patient Identification Verified (Name & Yes Yes Yes ) Patient Requires Transmission-Based No No No Precautions Safety Precautions NA Height and Weight Body Mass Index (BMI) 22.3 22.3 22.3 BMI Classification Normal Normal Normal Vital Signs Temperature (97.8 F-99.1 F) 97.0 F L 97.4 F L 97 F L Temperature Source Temporal Temporal Temporal Pulse Rate (60-100) 75 75 71 Pulse Location Monitor Monitor Respiratory Rate (12-18) 20 H 16 18 Respiratory rate source Observation Observation Oxygen Delivery Method Trach Collar Blood Pressure (90/60-120/80) 129/61 H 124/57 H 124/59 H Blood Pressure Mean (mm Hg) 83 79 80 Source Monitor Monitor Position Semi-Fowlers Semi-Fowlers Blood Pressure Location Left Arm Left Arm History Since Last Visit- (Skip if this is Patient's initial visit) Have you changed medications since your No No No last visit? Any new allergies or adverse reactions No No No Had a fall/change in ADL's that may No No No increase risk of falls Signs or symptoms of abuse and/or No No No neglect since last visit Have you been in the hospital since your No No No last visit? Has dressing in place as prescribed Yes Yes Yes Has compression in place as prescribed N/A N/A No Has offloadiing in place as prescribed N/A N/A No Experienced any changes in pain level or No No No management Left Footwear Slipper Right Footwear Regular Shoe Pain Scale: 0-10 Numeric Is Patient Pain Free? Yes Yes Yes WC - Nurse 1 - General Ulcer Measurement Start: 12/26/22 08:31 Freq: Status: Active Protocol: Activity Type Activity Date Activity User E-sign Co-sign Detail Recorded Client Recorded Date Recorded By Document 12/26/22 08:31 PL [id number] 12/26/22 08:39 PL Document 01/02/23 08:29 JF [id number] 01/02/23 08:33 JF Document 01/09/23 08:38 RB [id number] 01/09/23 08:47 RB 12/26/22 01/02/23 01/09/23 08:31 08:29 08:38 Wound Center Nurse 1 #1 Chin -Combined with other wound No No No -Current Size (cm) - Length 2.0 3.0 2 -Current Size (cm) - Width 3.0 2.8 2.4 -Current Size (cm) - Depth 0.2 0.4 0.4 -Total Square Cm 6.00 8.40 4.8 -Photo Taken No Yes Yes -Epithelialization Medium 34-66% None Present -Tunneling No -Undermining/Tunneling No No -Circular Undermining No No -Exudate Amt Medium Medium Large -Exudate Type Serosanguineous Serosanguineous Serosanguineous -Wound Margin Flat & Intact Thickened & Rolled Under -Granulation Amt Medium (34-66%) Medium (34-66%) Medium (34-66%) -Granulation Quality [place] -Slough/Fibrin Yes Yes Yes -Necrosis Amt Medium (34-66%) Small (1-33%) Medium (34-66%) -Necrotic Tissue Type Adherent Slough Adherent Slough Adherent Slough -Structure Exposed N/A N/A -Texture (Candace-wound Skin Appearance) No Abnormality Assessed Assessed -Moisture (Candace-wound Skin Appearance) No Abnormality Assessed,Dry/ Assessed Scaly -Color (Candace-wound Skin Appearance) No Abnormality Assessed Assessed -Temperature (Candace-wound Skin No Abnormality No Abnormality Appearance) (Pt Warm) (Pt Warm) -Tenderness on Palpation (Candace-wound No No Skin Appearance) -Ulcer Cleansing Rinsed/ Rinsed/ Wound Cleanser Irrigated with Irrigated with Saline Saline -Foul Odor after Cleansing No No -Anesthetic Used 5% Lidocaine 5% Lidocaine 5% Lidocaine Gel Gel Gel Lower Limb Edema Present NA WC - Nurse 2 - General Ulcer CM Notes Start: 12/26/22 08:31 Freq: Status: Active Protocol: Activity Type Activity Date Activity User E-sign Co-sign Detail Recorded Client Recorded Date Recorded By Document 12/26/22 08:43 MW [id number] 12/26/22 08:45 MW Document 01/02/23 08:47 MW [id number] 01/02/23 08:50 MW Document 01/09/23 08:59 MW [id number] 01/09/23 09:01 MW 12/26/22 01/02/23 01/09/23 08:43 08:47 08:59 Wound Center Nurse 2 #1 Chin -Time 08:44 08:48 09:00 -Correct Patient Yes Yes Yes -Correct Side, Site, Position Yes Yes Yes -Correct Procedure Yes Yes Yes -Procedure Performed Yes Yes Yes -Type of Procedure Debridement Debridement Debridement -Clinical Debridement Subcutaneous Subcutaneous Subcutaneous -Tissue Removed Subcutaneous Subcutaneous Subcutaneous -Post Debridement (cm) - Length 2.0 3.0 2.8 -Post Debridement (cm) - Width 1.8 2.0 2.4 -Post Debridement (cm) - Depth 0.5 0.4 0.5 -Total Square (Post) (cm) 3.60 6.00 6.72 -Area of Debridement (cm) - Length 2.0 3.0 2.8 -Area of Debridement (cm) - Width 1.8 2.0 2.4 -Total Square (Area) (cm) 3.60 6.00 6.72 -Tunneling No No No -Undermining/Tunneling No No No -Circular Undermining No No No -Wound/Ulcer Outcome Not Healed Not Healed Not Healed -Ulcer Cleansing Rinsed/ Rinsed/ Rinsed/ Irrigated with Irrigated with Irrigated with Saline Saline Saline -Foul Odor after Cleansing No No No -Bioengineered Tissue No No No -Bleeding Controlled with Pressure Pressure Pressure -Treatment Response Procedure Procedure Procedure Tolerated Well Tolerated Well Tolerated Well -Offloading No No No -Debridement - Subq, 1st 20sq cm Yes Yes Yes Pain Scale: 0-10 Numeric Is Patient Pain Free? Yes Yes Yes WC - Nurse 3 - General Ulcer D/C NN Start: 12/26/22 08:31 Freq: Status: Active Protocol: Activity Type Activity Date Activity User E-sign Co-sign Detail Recorded Client Recorded Date Recorded By Document 12/26/22 08:49 MW [id number] 12/26/22 08:49 MW Document 01/02/23 08:51 MW [id number] 01/02/23 08:51 MW Document 01/09/23 09:07 MW [id number] 01/09/23 09:08 MW 12/26/22 01/02/23 01/09/23 08:49 08:51 09:07 Wound Care Center Nurse 3 #1 Chin -Ulcer Cleansing Rinsed/ Rinsed/ Rinsed/ Irrigated with Irrigated with Irrigated with Saline Saline Saline -Foul Odor after Cleansing No No No -Negative Pressure Wound Therapy N/A N/A N/A -Primary Dressing Applied NonAdherent NonAdherent NonAdherent Contact Layer, Contact Layer, Contact Layer, Promogran Promogran Promogran Swetha Matter Swetha Matter Swetha Matter -Primary Dressing Covered/Secured with Dry Gauze, Dry Gauze, Dry Gauze, Secured with Secured with Secured with Tape Tape Tape -Promogran Swetha Matter 1 1 1 Treatment Response Procedure Procedure Procedure Tolerated Well Tolerated Well Tolerated Well Pain Scale: 0-10 Numeric Is Patient Pain Free? Yes Yes Yes Teaching: Wound Center Dressing Your Wound -Person Taught Patient Patient,Family Patient,Family -Teaching Method Discussion, Discussion, Discussion, Demonstration Demonstration Demonstration -Response to teaching Verbalize Verbalize Verbalize understanding understanding understanding WC - Visit Discharge Discharge Condition Stable Stable Stable Ambulatory Status Ambulatory Ambulatory Ambulatory Transportation Private Auto Private Auto Private Auto Accompanied by daughter daughter daughter Medication Reconcilliation completed & No No No provided to patient/care provider Clinical Summary of Care Provided Yes Yes Yes Assessment/Plan Assessment/Plan (1) Head and neck cancer: CODE(S): C76.0 - Malignant neoplasm of head, face and neck (2) Delayed surgical wound healing: CODE(S): T81.89XA - Other complications of procedures, not elsewhere classified, initial encounter QUALIFIERS: Encounter type: initial encounter Qualified Code(s): T81.89XA - Other complications of procedures, not elsewhere classified, initial encounter PLAN: Wash area with antibacterial soap and place Swetha and base cover with Adaptic gauze and paper tape daily dressings Cultures obtained will call with results Follow-up in 1 week (3) Nonhealing surgical wound: CODE(S): T81.89XA - Other complications of procedures, not elsewhere classified, initial encounter QUALIFIERS: Encounter type: initial encounter Qualified Code(s): T81.89XA - Other complications of procedures, not elsewhere classified, initial encounter (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 - Other specified disorders of the skin and subcutaneous tissue related to radiation; Y84.2 - Radiological procedure and radiotherapy as the cause of abnormal reaction of the patient, or of later complication, withoutmention of misadventure at the time of the procedure 01/09/23 0935 <Electronically signed by Joya Galvez NP [employer]OTH [employer]-C> Cosigner Signature (if applicable): CC: ~ Signed [facility] Work Phone: [phone]) 890-182204-12-2023 Progress note Author Joya Galvez [facility] January 02, 2023 12:07pm Note Date/Time January 02, 2023 12: 07pm [facility] [address] [place] [id number] Progress Note - Wound Care 01/02/23 1205 MR#: [id number] Acct: [id number] Name: MY JAMA Rep #:[id number] : 1960 62 From: Joya Galvez NP, NP-C PCP: YARI Pardo Status:REG RCR Location: History of Present Illness Date of Service: 01/02/23 Chief Complaint: 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 He received courses of chemotherapy followed by radiation treatments, which wereconcluded by the end of 2017. He recently underwent oral surgery and had 8 teeth extracted. Two extraction sites have failed to heal. On November 07, 2021, the patient underwent reconstruction of the jaw using bone from his left lower leg. 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 Progress of Wound: We have been using Swetha on his wound base and it showing more shallow and seems to be filling in better. Measurements for the open area are much smaller depth is about the same in the deep area Subjective Subjective Daughter and he are pleased with outcomes seems to be more shallow clean Objective Data Objective Data We will continue using the Swetha dressing reculture him in about a month certain areas of the jaw is starting to blend in with his face. Vital Signs: Vital Signs Temp Pulse Resp BP O2 Del Method 97.4 F L 75 16 124/57 H Trach Collar 01/02/23 08:29 01/02/23 08:29 01/02/23 08:29 01/02/23 08:29 01/02/23 08:29 Oxygen Delivery Method Trach Collar Weight: 130 lb Body Mass Index (BMI) 22.3 Lab / Micro Data Attestation: I reviewed the patient's lab results. Physical Exam Narrative ECOG 1 Hard of hearing Const alert, oriented x3 and no apparent distress General Appearance: cooperative and comfortable HEENT normocephalic HEENT Narrative: Reconstruction of the lower face, soft tissue edema Mouth: No thrush Eyes General Eye: normal appearance of both eyes Conjunctiva: conjunctiva normal Sclera: sclera normal Neck no lymphadenopathy and no JVD Neck Narrative: Postoperative changes and flap. Wound is covered with surgical dressing General: tracheostomy present Lymph Lymphatic: no lymphadenopathy noted Chest Chest: symmetrical chest wall rise Resp Auscultation: diminished lung sounds bilateral and diffuse Cardio regular rate and regular rhythm Jugular Venous Distention: Negative for JVD GI soft to palpation, non-tender and non-distended; Negative for hepatosplenomegaly GI Narrative: PEG tube Inspection: GI tube present no CVA tenderness Back/Spine no thoracic nor lumbar tenderness Extremity General Extremity: Negative for clubbing, cyanosis or edema Skin no rashes or lesions noted Neuro oriented x3, CN's II-XII intact bilaterally and moves all extremities Neuro Narrative: Bilateral symmetric wasting of first interosseous muscles. Coordination / Balance: [id number] test normal Speech: speech abnormal Gait (Neuro): normal gait Psych mental status grossly normal, thought process normal, cooperative and affect normal Debridement Note Debridement Note Wound debrided: Left jaw postoperative nonhealing Type of Debridement: Excisional debridement Anesthesia Used: 5% Lidocaine Gel Depth: Down to and including healthy tissue and in the subcutaneous layer Instrument Used: 5mm curette Tissue Removed: Fibrin Severity: Fat Layer Exposed Amount of bleeding with debridement: Mild Bleeding Controlled with: Compression and gauze Patient tolerated procedure: Patient tolerated procedure well Post-Debridement Measurements and Additional Note: Post-Debridement Measurements/Treatment - Nurse 1 - General Ulcer Assessment Start: 12/26/22 08:31 Freq: Status: Active Protocol: BRANDAN Activity Type Activity Date Activity User E-sign Co-sign Detail Recorded Client Recorded Date Recorded By Document 12/26/22 08:31 PL [id number] 12/26/22 08:39 PL Document 01/02/23 08:29 JF [id number] 01/02/23 08:33 JF 12/26/22 01/02/23 08:31 08:29 - Today's Visit Information Type of service Follow-up Visit Follow-up Visit (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 (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 ) ) Arrival Mode Ambulatory Ambulatory Transfer Assistance None Patient Identification Verified (Name & Yes Yes ) Patient Requires Transmission-Based No No Precautions Safety Precautions NA Height and Weight Body Mass Index (BMI) 22.3 22.3 BMI Classification Normal Normal Vital Signs Temperature (97.8 F-99.1 F) 97.0 F L 97.4 F L Temperature Source Temporal Temporal Pulse Rate (60-100) 75 75 Pulse Location Monitor Respiratory Rate (12-18) 20 H 16 Respiratory rate source Observation Oxygen Delivery Method Trach Collar Blood Pressure (90/60-120/80) 129/61 H 124/57 H Blood Pressure Mean (mm Hg) 83 79 Source Monitor Position Semi-Fowlers Blood Pressure Location Left Arm History Since Last Visit- (Skip if this is Patient's initial visit) Have you changed medications since your No No last visit? Any new allergies or adverse reactions No No Had a fall/change in ADL's that may No No increase risk of falls Signs or symptoms of abuse and/or No No neglect since last visit Have you been in the hospital since your No No last visit? Has dressing in place as prescribed Yes Yes Has compression in place as prescribed N/A N/A Has offloadiing in place as prescribed N/A N/A Experienced any changes in pain level or No No management Left Footwear Slipper Right Footwear Regular Shoe Pain Scale: 0-10 Numeric Is Patient Pain Free? Yes Yes DHAVAL - Nurse 1 - General Ulcer Measurement Start: 12/26/22 08:31 Freq: Status: Active Protocol: Activity Type Activity Date Activity User E-sign Co-sign Detail Recorded Client Recorded Date Recorded By Document 12/26/22 08:31 PL [id number] 12/26/22 08:39 PL Document 01/02/23 08:29 JF [id number] 01/02/23 08:33 JF 12/26/22 01/02/23 08:31 08:29 Wound Center Nurse 1 #1 Chin -Combined with other wound No No -Current Size (cm) - Length 2.0 3.0 -Current Size (cm) - Width 3.0 2.8 -Current Size (cm) - Depth 0.2 0.4 -Total Square Cm 6.00 8.40 -Photo Taken No Yes -Epithelialization Medium 34-66% None Present -Undermining/Tunneling No -Circular Undermining No -Exudate Amt Medium Medium -Exudate Type Serosanguineous Serosanguineous -Wound Margin Flat & Intact -Granulation Amt Medium (34-66%) Medium (34-66%) -Granulation Quality [place] -Slough/Fibrin Yes Yes -Necrosis Amt Medium (34-66%) Small (1-33%) -Necrotic Tissue Type Adherent Slough Adherent Slough -Structure Exposed N/A -Texture (Candace-wound Skin Appearance) No Abnormality Assessed -Moisture (Candace-wound Skin Appearance) No Abnormality Assessed,Dry/ Scaly -Color (Candace-wound Skin Appearance) No Abnormality Assessed -Temperature (Candace-wound Skin No Abnormality Appearance) (Pt Warm) -Tenderness on Palpation (Candace-wound No Skin Appearance) -Ulcer Cleansing Rinsed/ Rinsed/ Irrigated with Irrigated with Saline Saline -Foul Odor after Cleansing No -Anesthetic Used 5% Lidocaine 5% Lidocaine Gel Gel Lower Limb Edema Present NA DHAVAL - Nurse 2 - General Ulcer CM Notes Start: 12/26/22 08:31 Freq: Status: Active Protocol: Activity Type Activity Date Activity User E-sign Co-sign Detail Recorded Client Recorded Date Recorded By Document 12/26/22 08:43 MW [id number] 12/26/22 08:45 MW Document 01/02/23 08:47 MW [id number] 01/02/23 08:50 MW 12/26/22 01/02/23 08:43 08:47 Wound Center Nurse 2 #1 Chin -Time 08:44 08:48 -Correct Patient Yes Yes -Correct Side, Site, Position Yes Yes -Correct Procedure Yes Yes -Procedure Performed Yes Yes -Type of Procedure Debridement Debridement -Clinical Debridement Subcutaneous Subcutaneous -Tissue Removed Subcutaneous Subcutaneous -Post Debridement (cm) - Length 2.0 3.0 -Post Debridement (cm) - Width 1.8 2.0 -Post Debridement (cm) - Depth 0.5 0.4 -Total Square (Post) (cm) 3.60 6.00 -Area of Debridement (cm) - Length 2.0 3.0 -Area of Debridement (cm) - Width 1.8 2.0 -Total Square (Area) (cm) 3.60 6.00 -Tunneling No No -Undermining/Tunneling No No -Circular Undermining No No -Wound/Ulcer Outcome Not Healed Not Healed -Ulcer Cleansing Rinsed/ Rinsed/ Irrigated with Irrigated with Saline Saline -Foul Odor after Cleansing No No -Bioengineered Tissue No No -Bleeding Controlled with Pressure Pressure -Treatment Response Procedure Procedure Tolerated Well Tolerated Well -Offloading No No -Debridement - Subq, 1st 20sq cm Yes Yes Pain Scale: 0-10 Numeric Is Patient Pain Free? Yes Yes - Nurse 3 - General Ulcer D/C NN Start: 12/26/22 08:31 Freq: Status: Active Protocol: Activity Type Activity Date Activity User E-sign Co-sign Detail Recorded Client Recorded Date Recorded By Document 12/26/22 08:49 MW [id number] 12/26/22 08:49 MW Document 01/02/23 08:51 MW [id number] 01/02/23 08:51 MW 12/26/22 01/02/23 08:49 08:51 Wound Care Center Nurse 3 #1 Chin -Ulcer Cleansing Rinsed/ Rinsed/ Irrigated with Irrigated with Saline Saline -Foul Odor after Cleansing No No -Negative Pressure Wound Therapy N/A N/A -Primary Dressing Applied NonAdherent NonAdherent Contact Layer, Contact Layer, Promogran Promogran Swetha Matter Swetha Matter -Primary Dressing Covered/Secured with Dry Gauze, Dry Gauze, Secured with Secured with Tape Tape -Promogran Swetha Matter 1 1 Treatment Response Procedure Procedure Tolerated Well Tolerated Well Pain Scale: 0-10 Numeric Is Patient Pain Free? Yes Yes Teaching: Wound Center Dressing Your Wound -Person Taught Patient Patient,Family -Teaching Method Discussion, Discussion, Demonstration Demonstration -Response to teaching Verbalize Verbalize understanding understanding WC - Visit Discharge Discharge Condition Stable Stable Ambulatory Status Ambulatory Ambulatory Transportation Private Auto Private Auto Accompanied by daughter daughter Medication Reconcilliation completed & No No provided to patient/care provider Clinical Summary of Care Provided Yes Yes Assessment/Plan Assessment/Plan (1) Head and neck cancer: CODE(S): C76.0 - Malignant neoplasm of head, face and neck (2) Delayed surgical wound healing: CODE(S): T81.89XA - Other complications of procedures, not elsewhere classified, initial encounter QUALIFIERS: Encounter type: initial encounter Qualified Code(s): T81.89XA - Other complications of procedures, not elsewhere classified, initial encounter PLAN: Wash area with antibacterial soap and place Swetha and base cover with Adaptic gauze and paper tape daily dressings Follow-up in 1 week (3) Nonhealing surgical wound: CODE(S): T81.89XA - Other complications of procedures, not elsewhere classified, initial encounter QUALIFIERS: Encounter type: initial encounter Qualified Code(s): T81.89XA - Other complications of procedures, not elsewhere classified, initial encounter (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 - Other specified disorders of the skin and subcutaneous tissue related to radiation; Y84.2 - Radiological procedure and radiotherapy as the cause of abnormal reaction of the patient, or of later complication, withoutmention of misadventure at the time of the procedure 01/02/23 1207 <Electronically signed by Joya Galvez NP [employer]-C> Cosigner Signature (if applicable): CC: ~ Signed [facility] Work Phone: 1(600) 172-125004-05-2023 Progress note Author Joya Galvez [facility] December 26, 2022 8:50am Note Date/Time December 26, 2022 8:50 am [facility] [address] [place] [address] Progress Note - Wound Care 12/26/22 0847 MR#: [id number] Acct: [id number] Name: MY JAMA Rep #:[id number] : 1960 62 From: Joya Galvez NP [employer] CLE[employer]-C PCP: YARI Pardo Status:REG RCR Location: History of Present Illness Date of Service: 12/26/22 Chief Complaint: 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 He received courses of chemotherapy followed by radiation treatments, which wereconcluded by the end of 2017. He recently underwent oral surgery and had 8 teeth extracted. Two extraction sites have failed to heal. On November 07, 2021, the patient underwent reconstruction of the jaw using bone from his left lower leg. 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 Progress of Wound: For the last 2 weeks he has been using Swetha on his wound base and it showing more shallow and seems to be filling in better. Measurements for the open area are much smaller depth is about the same in the deep area Subjective Subjective Daughter is very pleased with the outcomes she noticed a big difference this last 2 weeks Objective Data Objective Data Measurements are better patient is doing better on the Swetha we will leave him on that for now Vital Signs: Vital Signs Temp Pulse Resp BP 97.0 F L 75 20 H 129/61 H 12/26/22 08:31 12/26/22 08:31 12/26/22 08:31 12/26/22 08:31 Weight: 130 lb Body Mass Index (BMI) 22.3 Lab / Micro Data Attestation: I reviewed the patient's lab results. Physical Exam Narrative ECOG 1 Hard of hearing Const alert, oriented x3 and no apparent distress General Appearance: cooperative and comfortable HEENT normocephalic HEENT Narrative: Reconstruction of the lower face, soft tissue edema Mouth: No thrush Eyes General Eye: normal appearance of both eyes Conjunctiva: conjunctiva normal Sclera: sclera normal Neck no lymphadenopathy and no JVD Neck Narrative: Postoperative changes and flap. Wound is covered with surgical dressing General: tracheostomy present Lymph Lymphatic: no lymphadenopathy noted Chest Chest: symmetrical chest wall rise Resp Auscultation: diminished lung sounds bilateral and diffuse Cardio regular rate and regular rhythm Jugular Venous Distention: Negative for JVD GI soft to palpation, non-tender and non-distended; Negative for hepatosplenomegaly GI Narrative: PEG tube Inspection: GI tube present no CVA tenderness Back/Spine no thoracic nor lumbar tenderness Extremity General Extremity: Negative for clubbing, cyanosis or edema Skin no rashes or lesions noted Neuro oriented x3, CN's II-XII intact bilaterally and moves all extremities Neuro Narrative: Bilateral symmetric wasting of first interosseous muscles. Coordination / Balance: [id number]-uv-[id number] test normal Speech: speech abnormal Gait (Neuro): normal gait Psych mental status grossly normal, thought process normal, cooperative and affect normal Debridement Note Debridement Note Wound debrided: Left jaw postoperative nonhealing wound from cancer Type of Debridement: Excisional debridement Anesthesia Used: 5% Lidocaine Gel Depth: Down to and including healthy tissue Percentage of wound debrided: 100 Instrument Used: 5mm curette Tissue Removed: Fibrin and devitalized tissue Severity: Fat Layer Exposed Amount of bleeding with debridement: Mild Bleeding Controlled with: Compression and gauze Patient tolerated procedure: Patient tolerated procedure well Post-Debridement Measurements and Additional Note: Post-Debridement Measurements/Treatment - Nurse 1 - General Ulcer Assessment Start: 12/26/22 08:31 Freq: Status: Active Protocol: DHAVAL.ROXANA Activity Type Activity Date Activity User E-sign Co-sign Detail Recorded Client Recorded Date Recorded By Document 12/26/22 08:31 PL [id number] 12/26/22 08:39 PL 12/26/22 08:31 - Today's Visit Information Type of service Follow-up Visit (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 ) Arrival Mode Ambulatory Transfer Assistance None Patient Identification Verified (Name & Yes ) Patient Requires Transmission-Based No Precautions Safety Precautions NA Height and Weight Body Mass Index (BMI) 22.3 BMI Classification Normal Vital Signs Temperature (97.8 F-99.1 F) 97.0 F L Temperature Source Temporal Pulse Rate (60-100) 75 Respiratory Rate (12-18) 20 H Blood Pressure (90/60-120/80) 129/61 H Blood Pressure Mean (mm Hg) 83 History Since Last Visit- (Skip if this is Patient's initial visit) Have you changed medications since your No last visit? Any new allergies or adverse reactions No Had a fall/change in ADL's that may No increase risk of falls Signs or symptoms of abuse and/or No neglect since last visit Have you been in the hospital since your No last visit? Has dressing in place as prescribed Yes Has compression in place as prescribed N/A Has offloadiing in place as prescribed N/A Experienced any changes in pain level or No management Pain Scale: 0-10 Numeric Is Patient Pain Free? Yes - Nurse 1 - General Ulcer Measurement Start: 12/26/22 08:31 Freq: Status: Active Protocol: Activity Type Activity Date Activity User E-sign Co-sign Detail Recorded Client Recorded Date Recorded By Document 12/26/22 08:31 PL [id number] 12/26/22 08:39 PL 12/26/22 08:31 Wound Center Nurse 1 #1 Chin -Combined with other wound No -Current Size (cm) - Length 2.0 -Current Size (cm) - Width 3.0 -Current Size (cm) - Depth 0.2 -Total Square Cm 6.00 -Photo Taken No -Epithelialization Medium 34-66% -Exudate Amt Medium -Exudate Type Serosanguineous -Granulation Amt Medium (34-66%) -Granulation Quality [place] -Slough/Fibrin Yes -Necrosis Amt Medium (34-66%) -Necrotic Tissue Type Adherent Slough -Texture (Candace-wound Skin Appearance) No Abnormality -Moisture (Candace-wound Skin Appearance) No Abnormality -Color (Candace-wound Skin Appearance) No Abnormality -Ulcer Cleansing Rinsed/ Irrigated with Saline -Foul Odor after Cleansing No -Anesthetic Used 5% Lidocaine Gel - Nurse 2 - General Ulcer CM Notes Start: 12/26/22 08:31 Freq: Status: Active Protocol: Activity Type Activity Date Activity User E-sign Co-sign Detail Recorded Client Recorded Date Recorded By Document 12/26/22 08:43 MW [id number] 12/26/22 08:45 MW 12/26/22 08:43 Wound Center Nurse 2 -Time 08:44 -Correct Patient Yes -Correct Side, Site, Position Yes -Correct Procedure Yes -Procedure Performed Yes -Type of Procedure Debridement -Clinical Debridement Subcutaneous -Tissue Removed Subcutaneous -Post Debridement (cm) - Length 2.0 -Post Debridement (cm) - Width 1.8 -Post Debridement (cm) - Depth 0.5 -Total Square (Post) (cm) 3.60 -Area of Debridement (cm) - Length 2.0 -Area of Debridement (cm) - Width 1.8 -Total Square (Area) (cm) 3.60 -Tunneling No -Undermining/Tunneling No -Circular Undermining No -Wound/Ulcer Outcome Not Healed -Ulcer Cleansing Rinsed/ Irrigated with Saline -Foul Odor after Cleansing No -Bioengineered Tissue No -Bleeding Controlled with Pressure -Treatment Response Procedure Tolerated Well -Offloading No -Debridement - Subq, 1st 20sq cm Yes Pain Scale: 0-10 Numeric Is Patient Pain Free? Yes Assessment/Plan Assessment/Plan (1) Head and neck cancer: CODE(S): C76.0 - Malignant neoplasm of head, face and neck (2) Delayed surgical wound healing: CODE(S): T81.89XA - Other complications of procedures, not elsewhere classified, initial encounter QUALIFIERS: Encounter type: initial encounter Qualified Code(s): T81.89XA - Other complications of procedures, not elsewhere classified, initial encounter PLAN: Wash area with antibacterial soap and place Swetha and base cover with Adaptic gauze and paper tape daily dressings Follow-up in 1 week (3) Nonhealing surgical wound: CODE(S): T81.89XA - Other complications of procedures, not elsewhere classified, initial encounter QUALIFIERS: Encounter type: initial encounter Qualified Code(s): T81.89XA - Other complications of procedures, not elsewhere classified, initial encounter (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 - Other specified disorders of the skin and subcutaneous tissue related to radiation; Y84.2 - Radiological procedure and radiotherapy as the cause of abnormal reaction of the patient, or of later complication, withoutmention of misadventure at the time of the procedure 12/26/22 0850 <Electronically signed by Joya Galvez NP [employer] CLE[employer]-C> Cosigner Signature (if applicable): CC: ~ Signed [facility] Work Phone: 1(757) 695-121703-22-2023 Progress note Author Joya Galvez [facility] December 12, 2022 11:57am Note Date/Time December 12, 2022 11: 57am [facility] [address] [place] [address] Progress Note - Wound Care 12/12/22 1155 MR#: [id number] Acct: [id number] Name: MY JAMA Rep #:[id number] : 1960 62 From: Joya Galvez NP [employer] CLE[employer]ER-C PCP: ERWIN PardoC Status:REG RCR Location: History of Present Illness Date of Service: 12/12/22 Chief Complaint: 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 He received courses of chemotherapy followed by radiation treatments, which wereconcluded by the end of 2018. He recently underwent oral surgery and had 8 teeth extracted. Two extraction sites have failed to heal. On November 07, 2021, the patient underwent reconstruction of the jaw using bone from his left lower leg. 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 Progress of Wound: Continues to improve, finished all antibiotic therapy. We will continue using the Swetha seems to be healing well. New growth on the shallow side filling in deep side still has positive depth Subjective Subjective Patient and daughter pleased with outcomes Objective Data Objective Data Continue with the same dressing changes and depth is improving. We will continue to monitor for infections once a month Vital Signs: Vital Signs Temp Pulse Resp BP O2 Del Method 96.9 F L 77 18 113/66 Room Air 12/12/22 08:52 12/12/22 08:52 11/28/22 08:23 12/12/22 08:52 12/05/22 08:22 Oxygen Delivery Method Room Air Weight: 130 lb Body Mass Index (BMI) 22.3 Physical Exam Narrative ECOG 1 Hard of hearing Const alert, oriented x3 and no apparent distress General Appearance: cooperative and comfortable HEENT normocephalic HEENT Narrative: Reconstruction of the lower face, soft tissue edema Mouth: No thrush Eyes General Eye: normal appearance of both eyes Conjunctiva: conjunctiva normal Sclera: sclera normal Neck no lymphadenopathy and no JVD Neck Narrative: Postoperative changes and flap. Wound is covered with surgical dressing General: tracheostomy present Lymph Lymphatic: no lymphadenopathy noted Chest Chest: symmetrical chest wall rise Resp Auscultation: diminished lung sounds bilateral and diffuse Cardio regular rate and regular rhythm Jugular Venous Distention: Negative for JVD GI soft to palpation, non-tender and non-distended; Negative for hepatosplenomegaly GI Narrative: PEG tube Inspection: GI tube present no CVA tenderness Back/Spine no thoracic nor lumbar tenderness Extremity General Extremity: Negative for clubbing, cyanosis or edema Skin no rashes or lesions noted Neuro oriented x3, CN's II-XII intact bilaterally and moves all extremities Neuro Narrative: Bilateral symmetric wasting of first interosseous muscles. Coordination / Balance: [id number]-wl-moec test normal Speech: speech abnormal Gait (Neuro): normal gait Psych mental status grossly normal, thought process normal, cooperative and affect normal Debridement Note Debridement Note Wound debrided: Left jaw postop nonhealing surgical wound Type of Debridement: Excisional debridement Anesthesia Used: 5% Lidocaine Gel Depth: Down to and including healthy tissue Percentage of wound debrided: 100 Instrument Used: 5mm curette Tissue Removed: Fibrin Severity: Fat Layer Exposed Amount of bleeding with debridement: Moderate Bleeding Controlled with: Compression and gauze Patient tolerated procedure: Patient tolerated procedure well Post-Debridement Measurements and Additional Note: Post-Debridement Measurements/Treatment - Nurse 1 - General Ulcer Assessment Start: 11/28/22 08:23 Freq: Status: Active Protocol: .ROXANA Activity Type Activity Date Activity User E-sign Co-sign Detail Recorded Client Recorded Date Recorded By Document 11/28/22 08:23 [facility] [id number] 11/28/22 08:25 [facility] Document 12/05/22 08:22 [facility] [id number] 12/05/22 08:27 [facility] Document 12/12/22 08:52 AK [id number] 12/12/22 08:55 AK 11/28/22 12/05/22 12/12/22 08:23 08:22 08:52 - Today's Visit Information Type of service Follow-up Visit Follow-up Visit Follow-up Visit (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 (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 (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 ) ) ) Arrival Mode Ambulatory Ambulatory Ambulatory Transfer Assistance None None Accompanied by natalie Patient Identification Verified (Name & Yes Yes Yes ) Patient Requires Transmission-Based No No No Precautions Safety Precautions NA Height and Weight Body Mass Index (BMI) 22.3 22.3 22.3 BMI Classification Normal Normal Normal Vital Signs Temperature (97.8 F-99.1 F) 96.7 F L 97.2 F L 96.9 F L Temperature Source Temporal Temporal Temporal Pulse Rate (60-100) 77 70 77 Pulse Location Monitor Monitor Monitor Respiratory Rate (12-18) 18 Respiratory rate source Observation Observation Oxygen Delivery Method Room Air Room Air Blood Pressure (90/60-120/80) 115/56 L 113/62 113/66 Blood Pressure Mean (mm Hg) 75 79 81 Source Monitor Monitor Monitor Position Sitting Sitting Blood Pressure Location Left Arm Left Arm History Since Last Visit- (Skip if this is Patient's initial visit) Have you changed medications since your No No No last visit? Any new allergies or adverse reactions No No No Had a fall/change in ADL's that may No No No increase risk of falls Signs or symptoms of abuse and/or No No No neglect since last visit Have you been in the hospital since your No No No last visit? Has dressing in place as prescribed Yes Yes Yes Has compression in place as prescribed N/A N/A N/A Has offloadiing in place as prescribed N/A N/A N/A Experienced any changes in pain level or No No No management Left Footwear Regular Shoe Regular Shoe Regular Shoe Right Footwear Regular Shoe Regular Shoe Regular Shoe Pain Scale: 0-10 Numeric Is Patient Pain Free? Yes Yes Yes WC - Nurse 1 - General Ulcer Measurement Start: 11/28/22 08:23 Freq: Status: Active Protocol: Activity Type Activity Date Activity User E-sign Co-sign Detail Recorded Client Recorded Date Recorded By Document 11/28/22 08:23 [facility] [id number] 11/28/22 08:25 [facility] Document 12/05/22 08:22 [facility] [id number] 12/05/22 08:27 [facility] Document 12/12/22 08:52 AK [id number] 12/12/22 08:55 AK 11/28/22 12/05/22 12/12/22 08:23 08:22 08:52 Wound Center Nurse 1 #1 Chin -Combined with other wound No No No -Current Size (cm) - Length 3 2.4 2.5 -Current Size (cm) - Width 0.6 2.2 2 -Current Size (cm) - Depth 0.3 0.4 0.2 -Total Square Cm 1.8 5.28 5.0 -Date of Last Picture (Recall this 11/28/22 12/05/22 field) -Photo Taken Yes Yes No -Epithelialization None Present None Present -Tunneling No No No -Undermining/Tunneling No No No -Circular Undermining No No No -Change in Wound Grade/Stage No -Exudate Amt Medium Small Medium -Exudate Type Serosanguineous Serous Serosanguineous -Wound Margin Distinct, Distinct, Distinct, Outline Outline Outline Attached Attached Attached -Granulation Amt Medium (34-66%) Small (1-33%) Small (1-33%) -Granulation Quality Red Red N/A -Slough/Fibrin Yes Yes Yes -Necrosis Amt Medium (34-66%) Large (67-100%) Large (67-100%) -Necrotic Tissue Type Adherent Slough Adherent Slough Adherent Slough -Structure Exposed N/A -Texture (Candace-wound Skin Appearance) Assessed, Assessed, Assessed, Scarring Scarring Scarring -Moisture (Candace-wound Skin Appearance) Assessed Assessed No Abnormality, Assessed -Color (Candace-wound Skin Appearance) Assessed Assessed No Abnormality, Assessed -Temperature (Candace-wound Skin No Abnormality No Abnormality No Abnormality Appearance) (Pt Warm) (Pt Warm) (Pt Warm) -Tenderness on Palpation (Candace-wound No No No Skin Appearance) -Ulcer Cleansing Rinsed/ Rinsed/ Irrigated with Irrigated with Saline Saline -Foul Odor after Cleansing No No -Anesthetic Used 5% Lidocaine 5% Lidocaine 4% Lidocaine Gel Gel Solution WC - Nurse 2 - General Ulcer CM Notes Start: 11/28/22 08:23 Freq: Status: Active Protocol: Activity Type Activity Date Activity User E-sign Co-sign Detail Recorded Client Recorded Date Recorded By Document 11/28/22 11:23 PL [id number] 11/28/22 11:23 PL Document 12/05/22 08:45 MW [id number] 12/05/22 08:48 MW Document 12/12/22 08:56 MW [id number] 12/12/22 09:00 MW 11/28/22 12/05/22 12/12/22 11:23 08:45 08:56 Wound Center Nurse 2 #1 Chin -Time 08:34 08:45 08:57 -Correct Patient Yes Yes Yes -Correct Side, Site, Position Yes Yes Yes -Correct Procedure Yes Yes Yes -Procedure Performed Yes Yes Yes -Type of Procedure Debridement Debridement Debridement -Clinical Debridement Subcutaneous Subcutaneous Subcutaneous -Tissue Removed Subcutaneous Subcutaneous Subcutaneous -Post Debridement (cm) - Length 2.5 2.0 2.5 -Post Debridement (cm) - Width 2.2 2.0 2.5 -Post Debridement (cm) - Depth 0.5 0.5 0.5 -Total Square (Post) (cm) 5.50 4.00 6.25 -Area of Debridement (cm) - Length 2.5 2.0 2.5 -Area of Debridement (cm) - Width 2.2 2.0 2.5 -Total Square (Area) (cm) 5.50 4.00 6.25 -Tunneling No No No -Undermining/Tunneling No No No -Circular Undermining No No No -Wound/Ulcer Outcome Not Healed Not Healed Not Healed -Ulcer Cleansing Rinsed/ Rinsed/ Rinsed/ Irrigated with Irrigated with Irrigated with Saline Saline Saline -Foul Odor after Cleansing No No No -Bioengineered Tissue No No No -Bleeding Controlled with Pressure Pressure Pressure -Treatment Response Procedure Procedure Procedure Tolerated Well Tolerated Well Tolerated Well -Offloading No No -Debridement - Subq, 1st 20sq cm Yes Yes Yes Pain Scale: 0-10 Numeric Is Patient Pain Free? Yes Yes Yes WC - Nurse 3 - General Ulcer D/C NN Start: 11/28/22 08:23 Freq: Status: Active Protocol: Activity Type Activity Date Activity User E-sign Co-sign Detail Recorded Client Recorded Date Recorded By Document 11/28/22 08:49 [facility] [id number] 11/28/22 08:49 [facility] Document 12/05/22 08:53 [facility] [id number] 12/05/22 08:54 BM Document 12/12/22 09:20 AK [id number] 12/12/22 09:21 AK 11/28/22 12/05/22 12/12/22 08:49 08:53 09:20 Wound Care Center Nurse 3 #1 Chin -Ulcer Cleansing Rinsed/ Rinsed/ Rinsed/ Irrigated with Irrigated with Irrigated with Saline Saline Saline -Foul Odor after Cleansing No No No -Negative Pressure Wound Therapy N/A -Primary Dressing Applied NonAdherent NonAdherent NonAdherent Contact Layer, Contact Layer, Contact Layer Promogran Promogran Swetha Matter -Other Dressing free samples of pomegran x2 -Primary Dressing Covered/Secured with Dry Gauze, Dry Gauze, Dry Gauze, Secured with Secured with Secured with Tape Tape Tape -Promogran 1 -Promogran Swetha Matter 1 Treatment Response Procedure Procedure Tolerated Well Tolerated Well Pain Scale: 0-10 Numeric Is Patient Pain Free? Yes Yes Yes WC - Visit Discharge Discharge Condition Stable Stable Stable Ambulatory Status Ambulatory Ambulatory Ambulatory Transportation Private Auto Private Auto Private Auto Medication Reconcilliation completed & Yes provided to patient/care provider Clinical Summary of Care Provided Yes Assessment/Plan Assessment/Plan (1) Head and neck cancer: CODE(S): C76.0 - Malignant neoplasm of head, face and neck (2) Delayed surgical wound healing: CODE(S): T81.89XA - Other complications of procedures, not elsewhere classified, initial encounter QUALIFIERS: Encounter type: initial encounter Qualified Code(s): T81.89XA - Other complications of procedures, not elsewhere classified, initial encounter PLAN: Wash area with antibacterial soap and place Promogran and base cover with Adaptic gauze and paper tape daily dressings Follow-up in 2week (3) Nonhealing surgical wound: CODE(S): T81.89XA - Other complications of procedures, not elsewhere classified, initial encounter QUALIFIERS: Encounter type: initial encounter Qualified Code(s): T81.89XA - Other complications of procedures, not elsewhere classified, initial encounter (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 - Other specified disorders of the skin and subcutaneous tissue related to radiation; Y84.2 - Radiological procedure and radiotherapy as the cause of abnormal reaction of the patient, or of later complication, withoutmention of misadventure at the time of the procedure 12/12/22 [id number] <Electronically signed by Joya Galvez NP [employer]> Cosigner Signature (if applicable): CC: ~ Signed [facility] Work Phone: 1(297) 284-439103-15-2023 Progress note Author Joya Galvez [facility] December 05, 2022 10:21am Note Date/Time December 05, 2022 10: 21am [facility] [address] [place] [address] Progress Note - Wound Care 12/05/22 1018 MR#: [id number] Acct: [id number] Name: MY JAMA Rep #:[id number] : 1960 62 From: Joya Galvez NP [employer] PCP: YARI Pardo Status:REG RCR Location: History of Present Illness Date of Service: 12/05/22 Chief Complaint: 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 He received courses of chemotherapy followed by radiation treatments, which wereconcluded by the end of 2017. He recently underwent oral surgery and had 8 teeth extracted. Two extraction sites have failed to heal. On November 07, 2021, the patient underwent reconstruction of the jaw using bone from his left lower leg. 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 Progress of Wound: Continues to improve, finished all antibiotic therapy. We will continue using the Swetha seems to be healing well Subjective Subjective Daughter here seems pleased with outcomes Objective Data Objective Data Improving in size and depth filling in nicely bleeds easily with debridement Vital Signs: Vital Signs Temp Pulse Resp BP O2 Del Method 97.2 F L 70 18 113/62 Room Air 12/05/22 08:22 12/05/22 08:22 11/28/22 08:23 12/05/22 08:22 12/05/22 08:22 Oxygen Delivery Method Room Air Weight: 130 lb Body Mass Index (BMI) 22.3 Physical Exam Narrative ECOG 1 Hard of hearing Const alert, oriented x3 and no apparent distress General Appearance: cooperative and comfortable HEENT normocephalic HEENT Narrative: Reconstruction of the lower face, soft tissue edema Mouth: No thrush Eyes General Eye: normal appearance of both eyes Conjunctiva: conjunctiva normal Sclera: sclera normal Neck no lymphadenopathy and no JVD Neck Narrative: Postoperative changes and flap. Wound is covered with surgical dressing General: tracheostomy present Lymph Lymphatic: no lymphadenopathy noted Chest Chest: symmetrical chest wall rise Resp Auscultation: diminished lung sounds bilateral and diffuse Cardio regular rate and regular rhythm Jugular Venous Distention: Negative for JVD GI soft to palpation, non-tender and non-distended; Negative for hepatosplenomegaly GI Narrative: PEG tube Inspection: GI tube present no CVA tenderness Back/Spine no thoracic nor lumbar tenderness Extremity General Extremity: Negative for clubbing, cyanosis or edema Skin no rashes or lesions noted Neuro oriented x3, CN's II-XII intact bilaterally and moves all extremities Neuro Narrative: Bilateral symmetric wasting of first interosseous muscles. Coordination / Balance: [id number] test normal Speech: speech abnormal Gait (Neuro): normal gait Psych mental status grossly normal, thought process normal, cooperative and affect normal Debridement Note Debridement Note Wound debrided: Left jaw nonhealing surgical wound Type of Debridement: Excisional debridement Anesthesia Used: 5% Lidocaine Gel Depth: in the subcutaneous layer Percentage of wound debrided: 100 Instrument Used: 5mm curette Tissue Removed: Fibrin Severity: Fat Layer Exposed Amount of bleeding with debridement: Mild Bleeding Controlled with: Compression and gauze Patient tolerated procedure: Patient tolerated procedure well Post-Debridement Measurements and Additional Note: Post-Debridement Measurements/Treatment - Nurse 1 - General Ulcer Assessment Start: 11/28/22 08:23 Freq: Status: Active Protocol: .ROXANA Activity Type Activity Date Activity User E-sign Co-sign Detail Recorded Client Recorded Date Recorded By Document 11/28/22 08:23 [facility] [id number] 11/28/22 08:25 [facility] Document 12/05/22 08:22 [facility] [id number] 12/05/22 08:27 [facility] 11/28/22 12/05/22 08:23 08:22 - Today's Visit Information Type of service Follow-up Visit Follow-up Visit (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 (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 ) ) Arrival Mode Ambulatory Ambulatory Transfer Assistance None None Accompanied by natalie Patient Identification Verified (Name & Yes Yes ) Patient Requires Transmission-Based No No Precautions Height and Weight Body Mass Index (BMI) 22.3 22.3 BMI Classification Normal Normal Vital Signs Temperature (97.8 F-99.1 F) 96.7 F L 97.2 F L Temperature Source Temporal Temporal Pulse Rate (60-100) 77 70 Pulse Location Monitor Monitor Respiratory Rate (12-18) 18 Respiratory rate source Observation Observation Oxygen Delivery Method Room Air Room Air Blood Pressure (90/60-120/80) 115/56 L 113/62 Blood Pressure Mean (mm Hg) 75 79 Source Monitor Monitor Position Sitting Sitting Blood Pressure Location Left Arm Left Arm History Since Last Visit- (Skip if this is Patient's initial visit) Have you changed medications since your No No last visit? Any new allergies or adverse reactions No No Had a fall/change in ADL's that may No No increase risk of falls Signs or symptoms of abuse and/or No No neglect since last visit Have you been in the hospital since your No No last visit? Has dressing in place as prescribed Yes Yes Has compression in place as prescribed N/A N/A Has offloadiing in place as prescribed N/A N/A Experienced any changes in pain level or No No management Left Footwear Regular Shoe Regular Shoe Right Footwear Regular Shoe Regular Shoe Pain Scale: 0-10 Numeric Is Patient Pain Free? Yes Yes WC - Nurse 1 - General Ulcer Measurement Start: 11/28/22 08:23 Freq: Status: Active Protocol: Activity Type Activity Date Activity User E-sign Co-sign Detail Recorded Client Recorded Date Recorded By Document 11/28/22 08:23 [facility] [id number] 11/28/22 08:25 [facility] Document 12/05/22 08:22 [facility] [id number] 12/05/22 08:27 BM 11/28/22 12/05/22 08:23 08:22 Wound Center Nurse 1 #1 Chin -Combined with other wound No No -Current Size (cm) - Length 3 2.4 -Current Size (cm) - Width 0.6 2.2 -Current Size (cm) - Depth 0.3 0.4 -Total Square Cm 1.8 5.28 -Date of Last Picture (Recall this 11/28/22 12/05/22 field) -Photo Taken Yes Yes -Epithelialization None Present None Present -Tunneling No No -Undermining/Tunneling No No -Circular Undermining No No -Exudate Amt Medium Small -Exudate Type Serosanguineous Serous -Wound Margin Distinct, Distinct, Outline Outline Attached Attached -Granulation Amt Medium (34-66%) Small (1-33%) -Granulation Quality Red Red -Slough/Fibrin Yes Yes -Necrosis Amt Medium (34-66%) Large (67-100%) -Necrotic Tissue Type Adherent Slough Adherent Slough -Texture (Candace-wound Skin Appearance) Assessed, Assessed, Scarring Scarring -Moisture (Candace-wound Skin Appearance) Assessed Assessed -Color (Candace-wound Skin Appearance) Assessed Assessed -Temperature (Candace-wound Skin No Abnormality No Abnormality Appearance) (Pt Warm) (Pt Warm) -Tenderness on Palpation (Cnadace-wound No No Skin Appearance) -Ulcer Cleansing Rinsed/ Rinsed/ Irrigated with Irrigated with Saline Saline -Foul Odor after Cleansing No -Anesthetic Used 5% Lidocaine 5% Lidocaine Gel Gel WC - Nurse 2 - General Ulcer CM Notes Start: 11/28/22 08:23 Freq: Status: Active Protocol: Activity Type Activity Date Activity User E-sign Co-sign Detail Recorded Client Recorded Date Recorded By Document 11/28/22 11:23 PL [id number] 11/28/22 11:23 PL Document 12/05/22 08:45 MW [id number] 12/05/22 08:48 MW 11/28/22 12/05/22 11:23 08:45 Wound Center Nurse 2 #1 Chin -Time 08:34 08:45 -Correct Patient Yes Yes -Correct Side, Site, Position Yes Yes -Correct Procedure Yes Yes -Procedure Performed Yes Yes -Type of Procedure Debridement Debridement -Clinical Debridement Subcutaneous Subcutaneous -Tissue Removed Subcutaneous Subcutaneous -Post Debridement (cm) - Length 2.5 2.0 -Post Debridement (cm) - Width 2.2 2.0 -Post Debridement (cm) - Depth 0.5 0.5 -Total Square (Post) (cm) 5.50 4.00 -Area of Debridement (cm) - Length 2.5 2.0 -Area of Debridement (cm) - Width 2.2 2.0 -Total Square (Area) (cm) 5.50 4.00 -Tunneling No No -Undermining/Tunneling No No -Circular Undermining No No -Wound/Ulcer Outcome Not Healed Not Healed -Ulcer Cleansing Rinsed/ Rinsed/ Irrigated with Irrigated with Saline Saline -Foul Odor after Cleansing No No -Bioengineered Tissue No No -Bleeding Controlled with Pressure Pressure -Treatment Response Procedure Procedure Tolerated Well Tolerated Well -Offloading No -Debridement - Subq, 1st 20sq cm Yes Yes Pain Scale: 0-10 Numeric Is Patient Pain Free? Yes Yes WC - Nurse 3 - General Ulcer D/C NN Start: 11/28/22 08:23 Freq: Status: Active Protocol: Activity Type Activity Date Activity User E-sign Co-sign Detail Recorded Client Recorded Date Recorded By Document 11/28/22 08:49 [facility] [id number] 11/28/22 08:49 [facility] Document 12/05/22 08:53 [facility] [id number] 12/05/22 08:54 [facility] 11/28/22 12/05/22 08:49 08:53 Wound Care Center Nurse 3 #1 Chin -Ulcer Cleansing Rinsed/ Rinsed/ Irrigated with Irrigated with Saline Saline -Foul Odor after Cleansing No No -Primary Dressing Applied NonAdherent NonAdherent Contact Layer, Contact Layer, Promogran Promogran Swetha Matter -Primary Dressing Covered/Secured with Dry Gauze, Dry Gauze, Secured with Secured with Tape Tape -Promogran 1 -Promogran Swetha Matter 1 Treatment Response Procedure Procedure Tolerated Well Tolerated Well Pain Scale: 0-10 Numeric Is Patient Pain Free? Yes Yes - Visit Discharge Discharge Condition Stable Stable Ambulatory Status Ambulatory Ambulatory Transportation Private Auto Private Auto Assessment/Plan Assessment/Plan (1) Head and neck cancer: CODE(S): C76.0 - Malignant neoplasm of head, face and neck (2) Delayed surgical wound healing: CODE(S): T81.89XA - Other complications of procedures, not elsewhere classified, initial encounter QUALIFIERS: Encounter type: initial encounter Qualified Code(s): T81.89XA - Other complications of procedures, not elsewhere classified, initial encounter PLAN: Wash area with antibacterial soap and place Promogran and base cover with Adaptic gauze and paper tape daily dressings Follow-up in 1 week (3) Nonhealing surgical wound: CODE(S): T81.89XA - Other complications of procedures, not elsewhere classified, initial encounter QUALIFIERS: Encounter type: initial encounter Qualified Code(s): T81.89XA - Other complications of procedures, not elsewhere classified, initial encounter (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 - Other specified disorders of the skin and subcutaneous tissue related to radiation; Y84.2 - Radiological procedure and radiotherapy as the cause of abnormal reaction of the patient, or of later complication, withoutmention of misadventure at the time of the procedure 12/05/22 1021 <Electronically signed by Joya Galvez NP [employer]> Cosigner Signature (if applicable): CC: ~ Signed [facility] Work Phone: 1(373) 893-760803-08-2023 Progress note Author Joya Galvez [facility] November 28, 2022 10:58am Note Date/Time November 28, 2022 10:5 8am [facility] [address] [place] [address] Progress Note - Wound Care 11/28/22 1051 MR#: [id number] Acct: [id number] Name: MY JAMA Rep #:[id number] : 1960 62 From: Joya Galvez NP [employer] PCP: YARI Pardo Status:REG RCR Location: History of Present Illness Date of Service: 11/28/22 Chief Complaint: 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 He received courses of chemotherapy followed by radiation treatments, which wereconcluded by the end of 2018. He recently underwent oral surgery and had 8 teeth extracted. Two extraction sites have failed to heal. On November 07, 2021, the patient underwent reconstruction of the jaw using bone from his left lower leg. 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 Progress of Wound: Continues to improve has not seen him for 2 weeks because the insurance problems. Finished antibiotic therapy restarted a new 1 that we started him on for his E. coli growing in his wound. We will continue using the Swetha seems to be healing well Subjective Subjective Patient is happy with outcomes Objective Data Objective Data Progressing okay about the same in size but depth is improving filling in nicelywe will continue using Promogran for this Vital Signs: Vital Signs Temp Pulse Resp BP O2 Del Method 96.7 F L 77 18 115/56 L Room Air 11/28/22 08:23 11/28/22 08:23 11/28/22 08:23 11/28/22 08:23 11/28/22 08:23 Oxygen Delivery Method Room Air Weight: 130 lb Body Mass Index (BMI) 22.3 Lab / Micro Data Attestation: I reviewed the patient's lab results. Physical Exam Narrative ECOG 1 Hard of hearing Const alert, oriented x3 and no apparent distress General Appearance: cooperative and comfortable HEENT normocephalic HEENT Narrative: Reconstruction of the lower face, soft tissue edema Mouth: No thrush Eyes General Eye: normal appearance of both eyes Conjunctiva: conjunctiva normal Sclera: sclera normal Neck no lymphadenopathy and no JVD Neck Narrative: Postoperative changes and flap. Wound is covered with surgical dressing General: tracheostomy present Lymph Lymphatic: no lymphadenopathy noted Chest Chest: symmetrical chest wall rise Resp Auscultation: diminished lung sounds bilateral and diffuse Cardio regular rate and regular rhythm Jugular Venous Distention: Negative for JVD GI soft to palpation, non-tender and non-distended; Negative for hepatosplenomegaly GI Narrative: PEG tube Inspection: GI tube present no CVA tenderness Back/Spine no thoracic nor lumbar tenderness Extremity General Extremity: Negative for clubbing, cyanosis or edema Skin no rashes or lesions noted Neuro oriented x3, CN's II-XII intact bilaterally and moves all extremities Neuro Narrative: Bilateral symmetric wasting of first interosseous muscles. Coordination / Balance: [id number] test normal Speech: speech abnormal Gait (Neuro): normal gait Psych mental status grossly normal, thought process normal, cooperative and affect normal Debridement Note Debridement Note Wound debrided: Left jaw postoperative nonhealing wound Type of Debridement: Excisional debridement Anesthesia Used: 5% Lidocaine Gel Depth: in the subcutaneous layer Percentage of wound debrided: 100 Instrument Used: 5mm curette Tissue Removed: Fibrin Severity: Fat Layer Exposed Amount of bleeding with debridement: Mild Bleeding Controlled with: Compression and gauze Patient tolerated procedure: Patient tolerated procedure well Post-Debridement Measurements and Additional Note: Post-Debridement Measurements/Treatment - Nurse 1 - General Ulcer Assessment Start: 11/28/22 08:23 Freq: Status: Active Protocol: BRANDAN Activity Type Activity Date Activity User E-sign Co-sign Detail Recorded Client Recorded Date Recorded By Document 11/28/22 08:23 [facility] [id number] 11/28/22 08:25 [facility] 11/28/22 08:23 - Today's Visit Information Type of service Follow-up Visit (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 ) Arrival Mode Ambulatory Transfer Assistance None Patient Identification Verified (Name & Yes ) Patient Requires Transmission-Based No Precautions Height and Weight Body Mass Index (BMI) 22.3 BMI Classification Normal Vital Signs Temperature (97.8 F-99.1 F) 96.7 F L Temperature Source Temporal Pulse Rate (60-100) 77 Pulse Location Monitor Respiratory Rate (12-18) 18 Respiratory rate source Observation Oxygen Delivery Method Room Air Blood Pressure (90/60-120/80) 115/56 L Blood Pressure Mean (mm Hg) 75 Source Monitor Position Sitting Blood Pressure Location Left Arm History Since Last Visit- (Skip if this is Patient's initial visit) Have you changed medications since your No last visit? Any new allergies or adverse reactions No Had a fall/change in ADL's that may No increase risk of falls Signs or symptoms of abuse and/or No neglect since last visit Have you been in the hospital since your No last visit? Has dressing in place as prescribed Yes Has compression in place as prescribed N/A Has offloadiing in place as prescribed N/A Experienced any changes in pain level or No management Left Footwear Regular Shoe Right Footwear Regular Shoe Pain Scale: 0-10 Numeric Is Patient Pain Free? Yes WC - Nurse 1 - General Ulcer Measurement Start: 11/28/22 08:23 Freq: Status: Active Protocol: Activity Type Activity Date Activity User E-sign Co-sign Detail Recorded Client Recorded Date Recorded By Document 11/28/22 08:23 [facility] [id number] 11/28/22 08:25 [facility] 11/28/22 08:23 Wound Center Nurse 1 #1 Chin -Combined with other wound No -Current Size (cm) - Length 3 -Current Size (cm) - Width 0.6 -Current Size (cm) - Depth 0.3 -Total Square Cm 1.8 -Date of Last Picture (Recall this 11/28/22 field) -Photo Taken Yes -Epithelialization None Present -Tunneling No -Undermining/Tunneling No -Circular Undermining No -Exudate Amt Medium -Exudate Type Serosanguineous -Wound Margin Distinct, Outline Attached -Granulation Amt Medium (34-66%) -Granulation Quality Red -Slough/Fibrin Yes -Necrosis Amt Medium (34-66%) -Necrotic Tissue Type Adherent Slough -Texture (Candace-wound Skin Appearance) Assessed, Scarring -Moisture (Candace-wound Skin Appearance) Assessed -Color (Candace-wound Skin Appearance) Assessed -Temperature (Candace-wound Skin No Abnormality Appearance) (Pt Warm) -Tenderness on Palpation (Candace-wound No Skin Appearance) -Ulcer Cleansing Rinsed/ Irrigated with Saline -Anesthetic Used 5% Lidocaine Gel WC - Nurse 3 - General Ulcer D/C NN Start: 11/28/22 08:23 Freq: Status: Active Protocol: Activity Type Activity Date Activity User E-sign Co-sign Detail Recorded Client Recorded Date Recorded By Document 11/28/22 08:49 [facility] [id number] 11/28/22 08:49 [facility] 11/28/22 08:49 Wound Care Center Nurse 3 -Ulcer Cleansing Rinsed/ Irrigated with Saline -Foul Odor after Cleansing No -Primary Dressing Applied NonAdherent Contact Layer, Promogran -Primary Dressing Covered/Secured with Dry Gauze, Secured with Tape -Promogran 1 Treatment Response Procedure Tolerated Well Pain Scale: 0-10 Numeric Is Patient Pain Free? Yes WC - Visit Discharge Discharge Condition Stable Ambulatory Status Ambulatory Transportation Private Auto Assessment/Plan Assessment/Plan (1) Head and neck cancer: CODE(S): C76.0 - Malignant neoplasm of head, face and neck (2) Delayed surgical wound healing: CODE(S): T81.89XA - Other complications of procedures, not elsewhere classified, initial encounter QUALIFIERS: Encounter type: initial encounter Qualified Code(s): T81.89XA - Other complications of procedures, not elsewhere classified, initial encounter PLAN: Wash area with antibacterial soap and place Promogran and base cover with Adaptic gauze and paper tape daily dressings Culture results were positive start cefdinir 300 mg twice daily for 10 days Follow-up in 1 week (3) Nonhealing surgical wound: CODE(S): T81.89XA - Other complications of procedures, not elsewhere classified, initial encounter QUALIFIERS: Encounter type: initial encounter Qualified Code(s): T81.89XA - Other complications of procedures, not elsewhere classified, initial encounter (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 - Other specified disorders of the skin and subcutaneous tissue related to radiation; Y84.2 - Radiological procedure and radiotherapy as the cause of abnormal reaction of the patient, or of later complication, withoutmention of misadventure at the time of the procedure 11/28/22 1058 <Electronically signed by Joya Galvez NP [employer]-C> Cosigner Signature (if applicable): CC: ~ Signed [facility] Work Phone: 1(114) 760-749302-22-2023 Progress note Author Joya Galvez [facility] November 14, 2022 12:06pm Note Date/Time November 14, 2022 12:06pm [facility] [address] [place] [address] Progress Note - Wound Care 11/14/22 1202 MR#: [id number] Acct: [id number] Name: MY JAMA Rep #:[id number] : 1960 62 From: Joya Galvez NP, NP-C PCP: YARI Pardo Status:REG RCR Location: History of Present Illness Date of Service: 11/14/22 Chief Complaint: 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 He received courses of chemotherapy followed by radiation treatments, which wereconcluded by the end of 2018. He recently underwent oral surgery and had 8 teeth extracted. Two extraction sites have failed to heal. On November 07, 2021, the patient underwent reconstruction of the jaw using bone from his left lower leg. 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 Progress of Wound: Left left jaw more shallow and healing well. 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 No smell or odor noted Subjective Subjective Patient is pleased with outcomes with no concerns Objective Data Objective Data Same as above healing well measurements are slightly smaller depth is better no sign of infection but will culture because he had MRSA over a month and a half ago Vital Signs: Vital Signs Temp Pulse Resp BP 97.6 F L 75 16 113/53 L 11/14/22 08:59 11/14/22 08:59 10/24/22 00:23 11/14/22 08:59 Weight: 130 lb Body Mass Index (BMI) 22.3 Lab / Micro Data Attestation: I reviewed the patient's lab results. Physical Exam Const alert, oriented x3, no apparent distress and well nourished General Appearance: cooperative, comfortable and well developed Orientation / Consciousness: awake, oriented to person, oriented to place and oriented to time HEENT normocephalic and head/scalp atraumatic Head and Scalp: normal to inspection, normocephalic and atraumatic External Ear: external ears normal Throat: other Other Details: A tracheostomy tube is noted to be in place. Eyes PERRL and EOMs intact bilaterally General Eye: normal appearance of both eyes Resp normal respiratory effort, normal air movement, no retractions and no use of accessory muscles Extremity no calf tenderness General Extremity: Negative for clubbing or cyanosis Skin Wound Narrative: A large open wound is noted in the left submandibular area. Dimensions are documented elsewhere. There is a large amount of necrotic and nonviable tissue at the base of the wound. There is also a disagreeable odor. A nearby tracheostomy tube is noted in the midline. Swab cultures have been obtained, for both aerobic and anaerobic bacterial growth. Neuro oriented x3, CN's II-XII intact bilaterally and moves all extremities Sensorium / Orientation: awake, alert, oriented to person, oriented to place andoriented to time Psych Appearance: grossly normal and appropriate Attitude: calm Activity / Motor Behavior: appropriate eye contact Speech: normal speech Mood & Affect: euthymic mood Thought Process: normal thought process Thought Content: normal thought content Attention / Concentration: attention grossly intact Debridement Note Debridement Note Wound debrided: Left jaw postop still open nonhealing Type of Debridement: Excisional debridement Anesthesia Used: 5% Lidocaine Gel Depth: in the subcutaneous layer Percentage of wound debrided: 100 Instrument Used: 5mm curette Tissue Removed: Fibrin Severity: Fat Layer Exposed Amount of bleeding with debridement: Mild Bleeding Controlled with: Compression and gauze Patient tolerated procedure: Patient tolerated procedure well Post-Debridement Measurements and Additional Note: Post-Debridement Measurements/Treatment WC - Nurse 1 - General Ulcer Assessment Start: 10/24/22 08:18 Freq: Status: Active Protocol: BRANDAN Activity Type Activity Date Activity User E-sign Co-sign Detail Recorded Client Recorded Date Recorded By Document 10/24/22 08:23 SHANTELL [id number] 10/24/22 08:25 AK Document 11/07/22 08:27 AK Desktop 11/07/22 08:28 AK Document 11/14/22 08:59 AK [id number] 11/14/22 09:00 AK 10/24/22 11/07/22 11/14/22 08:23 08:27 08:59 - Today's Visit Information Type of service Follow-up Visit Follow-up Visit Follow-up Visit (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 (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 (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 ) ) ) Arrival Mode Ambulatory Ambulatory Ambulatory Patient Identification Verified (Name & Yes Yes Yes ) Patient Requires Transmission-Based No No No Precautions Safety Precautions NA Height and Weight Body Mass Index (BMI) 22.3 22.3 22.3 BMI Classification Normal Normal Normal Vital Signs Temperature (97.8 F-99.1 F) 97.1 F L 98.1 F 97.6 F L Temperature Source Temporal Temporal Temporal Pulse Rate (60-100) 75 88 75 Pulse Location Monitor Monitor Monitor Blood Pressure (90/60-120/80) 124/66 H 127/78 H 113/53 L Blood Pressure Mean (mm Hg) 85 94 73 Source Monitor Monitor Monitor History Since Last Visit- (Skip if this is Patient's initial visit) Have you changed medications since your No No No last visit? Any new allergies or adverse reactions No No No Had a fall/change in ADL's that may No No No increase risk of falls Signs or symptoms of abuse and/or No No No neglect since last visit Have you been in the hospital since your No No No last visit? Has dressing in place as prescribed Yes Yes Yes Has compression in place as prescribed N/A N/A N/A Has offloadiing in place as prescribed N/A N/A N/A Experienced any changes in pain level or No No No management Left Footwear Regular Shoe Regular Shoe Regular Shoe Right Footwear Regular Shoe Regular Shoe Regular Shoe Pain Scale: 0-10 Numeric Is Patient Pain Free? Yes Yes Yes - Nurse 1 - General Ulcer Measurement Start: 10/24/22 08:18 Freq: Status: Active Protocol: Activity Type Activity Date Activity User E-sign Co-sign Detail Recorded Client Recorded Date Recorded By Document 10/24/22 08:23 SHANTELL [id number] 10/24/22 08:25 AK Document 11/07/22 08:27 SHANTELL Desktop 11/07/22 08:28 AK Document 11/14/22 08:59 NM [id number] 11/14/22 09:00 AK 10/24/22 11/07/22 11/14/22 08:23 08:27 08:59 Wound Center Nurse 1 #1 Chin -Combined with other wound No No No -Current Size (cm) - Length 2.6 2.2 2.5 -Current Size (cm) - Width 3 2.2 2.3 -Current Size (cm) - Depth 0.1 0.4 0.4 -Total Square Cm 7.8 4.84 5.75 -Date of Last Picture (Recall this 11/14/22 field) -Photo Taken Yes Yes Yes -Tunneling No No No -Undermining/Tunneling No No No -Circular Undermining No No No -Change in Wound Grade/Stage No No No -Exudate Amt Medium Medium Medium -Exudate Type Serosanguineous Serosanguineous Serosanguineous -Wound Margin Distinct, Distinct, Distinct, Outline Outline Outline Attached Attached Attached -Granulation Amt Small (1-33%) Small (1-33%) Small (1-33%) -Granulation Quality Thibodaux Thibodaux Thibodaux -Slough/Fibrin Yes Yes Yes -Necrosis Amt Large (67-100%) Large (67-100%) Large (67-100%) -Necrotic Tissue Type Adherent Slough Adherent Slough Adherent Slough -Structure Exposed N/A N/A N/A -Texture (Candace-wound Skin Appearance) No Abnormality, No Abnormality, No Abnormality, Assessed Assessed Assessed -Moisture (Candace-wound Skin Appearance) No Abnormality, No Abnormality, No Abnormality, Assessed Assessed Assessed -Color (Candace-wound Skin Appearance) No Abnormality, No Abnormality, No Abnormality, Assessed Assessed Assessed -Temperature (Candace-wound Skin No Abnormality No Abnormality Appearance) (Pt Warm) (Pt Warm) -Tenderness on Palpation (Candace-wound No No Skin Appearance) -Ulcer Cleansing Rinsed/ Soap and Water Irrigated with Saline -Foul Odor after Cleansing No No -Anesthetic Used 4% Lidocaine 4% Lidocaine Solution Solution WC - Nurse 2 - General Ulcer CM Notes Start: 10/24/22 08:18 Freq: Status: Active Protocol: Activity Type Activity Date Activity User E-sign Co-sign Detail Recorded Client Recorded Date Recorded By Document 10/24/22 09:02 MW [id number] 10/24/22 09:04 MW Document 11/07/22 08:44 MW [id number] 11/07/22 08:46 MW Document 11/14/22 08:52 MW [id number] 11/14/22 08:53 MW 10/24/22 11/07/22 11/14/22 09:02 08:44 08:52 Wound Center Nurse 2 #1 Chin -Time 09:02 08:44 08:53 -Correct Patient Yes Yes Yes -Correct Side, Site, Position Yes Yes Yes -Correct Procedure Yes Yes Yes -Procedure Performed Yes Yes Yes -Type of Procedure Debridement Debridement Debridement -Clinical Debridement Subcutaneous Subcutaneous Subcutaneous -Tissue Removed Subcutaneous Subcutaneous Subcutaneous -Post Debridement (cm) - Length 2.5 2.5 2.0 -Post Debridement (cm) - Width 2.5 2.8 2.3 -Post Debridement (cm) - Depth 0.5 0.5 0.5 -Total Square (Post) (cm) 6.25 7.00 4.60 -Area of Debridement (cm) - Length 2.5 2.5 2.0 -Area of Debridement (cm) - Width 2.5 2.8 2.3 -Total Square (Area) (cm) 6.25 7.00 4.60 -Tunneling No No No -Undermining/Tunneling No No No -Circular Undermining No No No -Wound/Ulcer Outcome Not Healed Not Healed Not Healed -Ulcer Cleansing Rinsed/ Rinsed/ Rinsed/ Irrigated with Irrigated with Irrigated with Saline Saline Saline -Foul Odor after Cleansing No No No -Bioengineered Tissue No No No -Bleeding Controlled with Pressure Pressure Pressure -Treatment Response Procedure Procedure Procedure Tolerated Well Tolerated Well Tolerated Well -Offloading No No -Debridement - Subq, 1st 20sq cm Yes Yes Yes Pain Scale: 0-10 Numeric Is Patient Pain Free? Yes Yes Yes WC - Nurse 3 - General Ulcer D/C NN Start: 10/24/22 08:18 Freq: Status: Active Protocol: Activity Type Activity Date Activity User E-sign Co-sign Detail Recorded Client Recorded Date Recorded By Document 10/24/22 10:43 [facility] [id number] 10/24/22 10:44 [facility] Document 11/07/22 08:52 ML [id number] 11/07/22 08:55 ML Document 11/14/22 09:05 [facility] [id number] 11/14/22 09:05 [facility] 10/24/22 11/07/22 11/14/22 10:43 08:52 09:05 Wound Care Center Nurse 3 #1 Chin -Ulcer Cleansing Rinsed/ Rinsed/ Irrigated with Irrigated with Saline Saline -Foul Odor after Cleansing No No -Primary Dressing Applied NonAdherent Aquacel Extra, Aquacel Extra, Contact Layer, Promogran NonAdherent Promogran Contact Layer, Promogran -Other Dressing adaptic aquacel aquacel extra to pad and to r side chin protect right area w/ 2x2 side under chin gauze & tape -Primary Dressing Covered/Secured with Dry Gauze, Dry Gauze, Dry Gauze, Secured with Secured with Secured with Tape Tape Tape -Other Covering blue tape silicone tape -Aquacel Extra 1 1 -Promogran 1 1 1 Treatment Response Procedure Tolerated Well Pain Scale: 0-10 Numeric Is Patient Pain Free? Yes Yes Yes WC - Visit Discharge Discharge Condition Stable Ambulatory Status Ambulatory Transportation Private Auto Accompanied by natalie Assessment/Plan Assessment/Plan (1) Head and neck cancer: CODE(S): C76.0 - Malignant neoplasm of head, face and neck (2) Delayed surgical wound healing: CODE(S): T81.89XA - Other complications of procedures, not elsewhere classified, initial encounter QUALIFIERS: Encounter type: initial encounter Qualified Code(s): T81.89XA - Other complications of procedures, not elsewhere classified, initial encounter PLAN: Wash area with antibacterial soap and place Promogran and base cover with Adaptic gauze and paper tape daily dressings Will call with culture results within the next week Follow-up in 1 week (3) Nonhealing surgical wound: CODE(S): T81.89XA - Other complications of procedures, not elsewhere classified, initial encounter QUALIFIERS: Encounter type: initial encounter Qualified Code(s): T81.89XA - Other complications of procedures, not elsewhere classified, initial encounter (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 - Other specified disorders of the skin and subcutaneous tissue related to radiation; Y84.2 - Radiological procedure and radiotherapy as the cause of abnormal reaction of the patient, or of later complication, withoutmention of misadventure at the time of the procedure 11/14/22 1206 <Electronically signed by Joya Galvez NP, NP-C> Cosigner Signature (if applicable): CC: ~ Signed [facility] Work Phone: 1(559) 691-684402-15-2023 Progress note Author Joya Galvez [facility] November 07, 2022 9:38am Note Date/Time November 07, 2022 9:22am [facility] [address] [place] [address] Progress Note - Wound Care 11/07/2220 MR#: [id number] Acct: [id number] Name: MY JAMA Rep #:[id number] : 1960 62 From: Joya BUNN PCP: YARI Pardo Status:REG RCR Location: History of Present Illness Date of Service: 11/07/22 Chief Complaint: 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 He received courses of chemotherapy followed by radiation treatments, which wereconcluded by the end of 2018. He recently underwent oral surgery and had 8 teeth extracted. Two extraction sites have failed to heal. On November 07, 2021, the patient underwent reconstruction of the jaw using bone from his left lower leg. 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 Progress of Wound: Wound has not been seen for 2 weeks looks really good he is starting develop newskin in his jaw. We will continue using Promogran for now and follow-up in 2 weeks Subjective Subjective Very pleased with outcome so far Objective Data Objective Data The area is not much smaller but it is filling in from the bottom up specially on the right side of the wound is becoming more flushed with the neck skin. Coloring is good no odor noted did complain of a sore on his right chin on line of one of his graphing. We will apply some Aquacel extra protected and look at it again next week. Vital Signs: Vital Signs Temp Pulse Resp BP 98.1 F 88 16 127/78 H 11/07/22 08:27 11/07/22 08:27 10/24/22 00:23 02/15/23 08:27 Weight: 130 lb Body Mass Index (BMI) 22.3 Lab / Micro Data Attestation: I reviewed the patient's lab results. Physical Exam Const alert, oriented x3, no apparent distress and well nourished General Appearance: cooperative, comfortable and well developed Orientation / Consciousness: awake, oriented to person, oriented to place and oriented to time HEENT normocephalic and head/scalp atraumatic Head and Scalp: normal to inspection, normocephalic and atraumatic External Ear: external ears normal Throat: other Other Details: A tracheostomy tube is noted to be in place. Eyes PERRL and EOMs intact bilaterally General Eye: normal appearance of both eyes Resp normal respiratory effort, normal air movement, no retractions and no use of accessory muscles Extremity no calf tenderness General Extremity: Negative for clubbing or cyanosis Skin Wound Narrative: A large open wound is noted in the left submandibular area. Dimensions are documented elsewhere. There is a large amount of necrotic and nonviable tissue at the base of the wound. There is also a disagreeable odor. A nearby tracheostomy tube is noted in the midline. Swab cultures have been obtained, for both aerobic and anaerobic bacterial growth. Neuro oriented x3, CN's II-XII intact bilaterally and moves all extremities Sensorium / Orientation: awake, alert, oriented to person, oriented to place andoriented to time Psych Appearance: grossly normal and appropriate Attitude: calm Activity / Motor Behavior: appropriate eye contact Speech: normal speech Mood & Affect: euthymic mood Thought Process: normal thought process Thought Content: normal thought content Attention / Concentration: attention grossly intact Debridement Note Debridement Note Wound debrided: Left jaw postsurgery nonhealing Laterality: Left Type of Debridement: Excisional debridement Anesthesia Used: 5% Lidocaine Gel Depth: in the subcutaneous layer Percentage of wound debrided: 100 Instrument Used: 7mm curette Tissue Removed: Fibrin Severity: Fat Layer Exposed Amount of bleeding with debridement: Mild Bleeding Controlled with: Compression and gauze Patient tolerated procedure: Patient tolerated procedure well Post-Debridement Measurements and Additional Note: Post-Debridement Measurements/Treatment WC - Nurse 1 - General Ulcer Assessment Start: 10/24/22 08:18 Freq: Status: Active Protocol: DHAVAL.ROXANA Activity Type Activity Date Activity User E-sign Co-sign Detail Recorded Client Recorded Date Recorded By Document 10/24/22 08:23 AK [id number] 10/24/22 08:25 NM Document 11/07/22 08:27 AK Desktop 11/07/22 08:28 AK 10/24/22 11/07/22 08:23 08:27 - Today's Visit Information Type of service Follow-up Visit Follow-up Visit (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 (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 ) ) Arrival Mode Ambulatory Ambulatory Patient Identification Verified (Name & Yes Yes ) Patient Requires Transmission-Based No No Precautions Safety Precautions NA Height and Weight Body Mass Index (BMI) 22.3 22.3 BMI Classification Normal Normal Vital Signs Temperature (97.8 F-99.1 F) 97.1 F L 98.1 F Temperature Source Temporal Temporal Pulse Rate (60-100) 75 88 Pulse Location Monitor Monitor Blood Pressure (90/60-120/80) 124/66 H 127/78 H Blood Pressure Mean (mm Hg) 85 94 Source Monitor Monitor History Since Last Visit- (Skip if this is Patient's initial visit) Have you changed medications since your No No last visit? Any new allergies or adverse reactions No No Had a fall/change in ADL's that may No No increase risk of falls Signs or symptoms of abuse and/or No No neglect since last visit Have you been in the hospital since your No No last visit? Has dressing in place as prescribed Yes Yes Has compression in place as prescribed N/A N/A Has offloadiing in place as prescribed N/A N/A Experienced any changes in pain level or No No management Left Footwear Regular Shoe Regular Shoe Right Footwear Regular Shoe Regular Shoe Pain Scale: 0-10 Numeric Is Patient Pain Free? Yes Yes - Nurse 1 - General Ulcer Measurement Start: 10/24/22 08:18 Freq: Status: Active Protocol: Activity Type Activity Date Activity User E-sign Co-sign Detail Recorded Client Recorded Date Recorded By Document 10/24/22 08:23 NM [id number] 10/24/22 08:25 NM Document 11/07/22 08:27 NM Desktop 11/07/22 08:28 NM 10/24/22 11/07/22 08:23 08:27 Wound Center Nurse 1 #1 Chin -Combined with other wound No No -Current Size (cm) - Length 2.6 2.2 -Current Size (cm) - Width 3 2.2 -Current Size (cm) - Depth 0.1 0.4 -Total Square Cm 7.8 4.84 -Photo Taken Yes Yes -Tunneling No No -Undermining/Tunneling No No -Circular Undermining No No -Change in Wound Grade/Stage No No -Exudate Amt Medium Medium -Exudate Type Serosanguineous Serosanguineous -Wound Margin Distinct, Distinct, Outline Outline Attached Attached -Granulation Amt Small (1-33%) Small (1-33%) -Granulation Quality [place] -Slough/Fibrin Yes Yes -Necrosis Amt Large (67-100%) Large (67-100%) -Necrotic Tissue Type Adherent Slough Adherent Slough -Structure Exposed N/A N/A -Texture (Candaec-wound Skin Appearance) No Abnormality, No Abnormality, Assessed Assessed -Moisture (Candace-wound Skin Appearance) No Abnormality, No Abnormality, Assessed Assessed -Color (Candace-wound Skin Appearance) No Abnormality, No Abnormality, Assessed Assessed -Temperature (Candace-wound Skin No Abnormality No Abnormality Appearance) (Pt Warm) (Pt Warm) -Tenderness on Palpation (Candace-wound No No Skin Appearance) -Ulcer Cleansing Rinsed/ Soap and Water Irrigated with Saline -Foul Odor after Cleansing No No -Anesthetic Used 4% Lidocaine 4% Lidocaine Solution Solution WC - Nurse 2 - General Ulcer CM Notes Start: 10/24/22 08:18 Freq: Status: Active Protocol: Activity Type Activity Date Activity User E-sign Co-sign Detail Recorded Client Recorded Date Recorded By Document 10/24/22 09:02 MW [id number] 10/24/22 09:04 MW Document 11/07/22 08:44 MW [id number] 11/07/22 08:46 MW 10/24/22 11/07/22 09:02 08:44 Wound Center Nurse 2 #1 Chin -Time 09:02 08:44 -Correct Patient Yes Yes -Correct Side, Site, Position Yes Yes -Correct Procedure Yes Yes -Procedure Performed Yes Yes -Type of Procedure Debridement Debridement -Clinical Debridement Subcutaneous Subcutaneous -Tissue Removed Subcutaneous Subcutaneous -Post Debridement (cm) - Length 2.5 2.5 -Post Debridement (cm) - Width 2.5 2.8 -Post Debridement (cm) - Depth 0.5 0.5 -Total Square (Post) (cm) 6.25 7.00 -Area of Debridement (cm) - Length 2.5 2.5 -Area of Debridement (cm) - Width 2.5 2.8 -Total Square (Area) (cm) 6.25 7.00 -Tunneling No No -Undermining/Tunneling No No -Circular Undermining No No -Wound/Ulcer Outcome Not Healed Not Healed -Ulcer Cleansing Rinsed/ Rinsed/ Irrigated with Irrigated with Saline Saline -Foul Odor after Cleansing No No -Bioengineered Tissue No No -Bleeding Controlled with Pressure Pressure -Treatment Response Procedure Procedure Tolerated Well Tolerated Well -Offloading No -Debridement - Subq, 1st 20sq cm Yes Yes Pain Scale: 0-10 Numeric Is Patient Pain Free? Yes Yes - Nurse 3 - General Ulcer D/C NN Start: 10/24/22 08:18 Freq: Status: Active Protocol: Activity Type Activity Date Activity User E-sign Co-sign Detail Recorded Client Recorded Date Recorded By Document 10/24/22 10:43 [facility] [id number] 10/24/22 10:44 [facility] Document 11/07/22 08:52 ML [id number] 11/07/22 08:55 ML 10/24/22 11/07/22 10:43 08:52 Wound Care Center Nurse 3 #1 Chin -Ulcer Cleansing Rinsed/ Irrigated with Saline -Foul Odor after Cleansing No -Primary Dressing Applied NonAdherent Aquacel Extra, Contact Layer, Promogran Promogran -Other Dressing adaptic aquacel to pad and protect right side under chin -Primary Dressing Covered/Secured with Dry Gauze, Dry Gauze, Secured with Secured with Tape Tape -Other Covering blue tape -Aquacel Extra 1 -Promogran 1 1 Treatment Response Procedure Tolerated Well Pain Scale: 0-10 Numeric Is Patient Pain Free? Yes Yes - Visit Discharge Discharge Condition Stable Ambulatory Status Ambulatory Transportation Private Auto Accompanied by natalie Assessment/Plan Assessment/Plan (1) Head and neck cancer: CODE(S): C76.0 - Malignant neoplasm of head, face and neck (2) Delayed surgical wound healing: CODE(S): T81.89XA - Other complications of procedures, not elsewhere classified, initial encounter QUALIFIERS: Encounter type: initial encounter Qualified Code(s): T81.89XA - Other complications of procedures, not elsewhere classified, initial encounter PLAN: Wash area with antibacterial soap and place Promogran and base cover with Adaptic gauze and paper tape daily dressings Follow-up in 1 week (3) Nonhealing surgical wound: CODE(S): T81.89XA - Other complications of procedures, not elsewhere classified, initial encounter QUALIFIERS: Encounter type: initial encounter Qualified Code(s): T81.89XA - Other complications of procedures, not elsewhere classified, initial encounter (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 - Other specified disorders of the skin and subcutaneous tissue related to radiation; Y84.2 - Radiological procedure and radiotherapy as the cause of abnormal reaction of the patient, or of later complication, withoutmention of misadventure at the time of the procedure 11/07/22 0938 <Electronically signed by Joya HOODC> Cosigner Signature (if applicable): CC: ~ Signed [facility] Work Phone: 1(536) 492-706602-01-2023 Progress note Author Joya Galvez [facility] October 24, 2022 11:45am Note Date/Time October 24, 2022 1 1:09am [facility] [address] [place] [id number] Progress Note - Wound Care 10/24/22 1106 MR#: [id number] Acct: [id number] Name: MY JAMA Rep #:[id number] : 1960 62 From: Joya Galvez NP, NP-Damaris PCP: YARI Pardo Status:REG RCR Location: ADDENDUM by YARI Galvez on 10/24/22 at 1145 Assessment & Plan (1) Soft tissue radionecrosis: (2) Nonhealing surgical wound: QUALIFIERS: Encounter type: initial encounter Qualified Code(s): T81.89XA - Other complications of procedures, not elsewhere classified, initial encounter PLAN: Wash area with antibacterial soap apply Promogran to wound base cover withAdaptic then gauze and tape every day Follow-up 2 weeks (3) Head and neck cancer: 10/24/22 1145<Electronically signed by Joya Galvez BOOTH CLEANER [employer]-C> Cosigner Signature (if applicable): cc: ~* Signed History of Present Illness Date of Service: 10/24/22 Chief Complaint: 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 He received courses of chemotherapy followed by radiation treatments, which wereconcluded by the end of 2017. He recently underwent oral surgery and had 8 teeth extracted. Two extraction sites have failed to heal. On November 07, 2021, the patient underwent reconstruction of the jaw using bone from his left lower leg. 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 Progress of Wound: Wound has not been seen for 2 weeks looks really good he is starting develop newskin in his jaw. Removed a lot of product but not any slough. No odor finishedhis antibiotics as of this last weekend. We will continue using Promogran for now and follow-up in 2 weeks Subjective Subjective Very happy with his outcome Objective Data Objective Data Looks good slightly smaller filling in with new skin starting to look like a jaw. Vital Signs: Vital Signs Temp Pulse Resp BP 97.1 F L 75 16 124/66 H 10/24/22 08:23 10/24/22 08:23 10/24/22 00:23 10/24/22 08:23 Weight: 130 lb Body Mass Index (BMI) 22.3 Lab / Micro Data Attestation: I reviewed the patient's lab results. Physical Exam Const alert, oriented x3, no apparent distress and well nourished General Appearance: cooperative, comfortable and well developed Orientation / Consciousness: awake, oriented to person, oriented to place and oriented to time HEENT normocephalic and head/scalp atraumatic Head and Scalp: normal to inspection, normocephalic and atraumatic External Ear: external ears normal Throat: other Other Details: A tracheostomy tube is noted to be in place. Eyes PERRL and EOMs intact bilaterally General Eye: normal appearance of both eyes Resp normal respiratory effort, normal air movement, no retractions and no use of accessory muscles Extremity no calf tenderness General Extremity: Negative for clubbing or cyanosis Skin Wound Narrative: A large open wound is noted in the left submandibular area. Dimensions are documented elsewhere. There is a large amount of necrotic and nonviable tissue atthe base of the wound. There is also a disagreeable odor. A nearby tracheostomy tube is noted in the midline. Swab cultures have been obtained, for both aerobic and anaerobic bacterial growth. Neuro oriented x3, CN's II-XII intact bilaterally and moves all extremities Sensorium / Orientation: awake, alert, oriented to person, oriented to place andoriented to time Psych Appearance: grossly normal and appropriate Attitude: calm Activity / Motor Behavior: appropriate eye contact Speech: normal speech Mood & Affect: euthymic mood Thought Process: normal thought process Thought Content: normal thought content Attention / Concentration: attention grossly intact Debridement Note Debridement Note Wound debrided: Left jaw surgical site nonhealing Type of Debridement: Excisional debridement Anesthesia Used: 5% Lidocaine Gel Depth: Down to and including healthy tissue and in the subcutaneous layer Percentage of wound debrided: 100 Instrument Used: 5mm curette Tissue Removed: Fibrin and product Severity: Fat Layer Exposed Amount of bleeding with debridement: Mild Bleeding Controlled with: Compression and gauze Patient tolerated procedure: Patient did not tolerate procedure well Post-Debridement Measurements and Additional Note: Post-Debridement Measurements/Treatment - Nurse 1 - General Ulcer Assessment Start: 10/24/22 08:18 Freq: Status: Active Protocol: DHAVAL.[place]ONT Activity Type Activity Date Activity User E-sign Co-sign Detail Recorded Client Recorded Date Recorded By Document 10/24/22 08:23 NM [id number] 10/24/22 08:25 NM 10/24/22 08:23 - Today's Visit Information Type of service Follow-up Visit (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 ) Arrival Mode Ambulatory Patient Identification Verified (Name & Yes ) Patient Requires Transmission-Based No Precautions Safety Precautions NA Height and Weight Body Mass Index (BMI) 22.3 BMI Classification Normal Vital Signs Temperature (97.8 F-99.1 F) 97.1 F L Temperature Source Temporal Pulse Rate (60-100) 75 Pulse Location Monitor Blood Pressure (90/60-120/80) 124/66 H Blood Pressure Mean (mm Hg) 85 Source Monitor History Since Last Visit- (Skip if this is Patient's initial visit) Have you changed medications since your No last visit? Any new allergies or adverse reactions No Had a fall/change in ADL's that may No increase risk of falls Signs or symptoms of abuse and/or No neglect since last visit Have you been in the hospital since your No last visit? Has dressing in place as prescribed Yes Has compression in place as prescribed N/A Has offloadiing in place as prescribed N/A Experienced any changes in pain level or No management Left Footwear Regular Shoe Right Footwear Regular Shoe Pain Scale: 0-10 Numeric Is Patient Pain Free? Yes - Nurse 1 - General Ulcer Measurement Start: 10/24/22 08:18 Freq: Status: Active Protocol: Activity Type Activity Date Activity User E-sign Co-sign Detail Recorded Client Recorded Date Recorded By Document 10/24/22 08:23 NM [id number] 10/24/22 08:25 AK 10/24/22 08:23 Wound Center Nurse 1 #1 Chin -Combined with other wound No -Current Size (cm) - Length 2.6 -Current Size (cm) - Width 3 -Current Size (cm) - Depth 0.1 -Total Square Cm 7.8 -Photo Taken Yes -Tunneling No -Undermining/Tunneling No -Circular Undermining No -Change in Wound Grade/Stage No -Exudate Amt Medium -Exudate Type Serosanguineous -Wound Margin Distinct, Outline Attached -Granulation Amt Small (1-33%) -Granulation Quality [place] -Slough/Fibrin Yes -Necrosis Amt Large (67-100%) -Necrotic Tissue Type Adherent Slough -Structure Exposed N/A -Texture (Candace-wound Skin Appearance) No Abnormality, Assessed -Moisture (Candace-wound Skin Appearance) No Abnormality, Assessed -Color (Candace-wound Skin Appearance) No Abnormality, Assessed -Temperature (Candace-wound Skin No Abnormality Appearance) (Pt Warm) -Tenderness on Palpation (Candace-wound No Skin Appearance) -Ulcer Cleansing Rinsed/ Irrigated with Saline -Foul Odor after Cleansing No -Anesthetic Used 4% Lidocaine Solution - Nurse 2 - General Ulcer CM Notes Start: 10/24/22 08:18 Freq: Status: Active Protocol: Activity Type Activity Date Activity User E-sign Co-sign Detail Recorded Client Recorded Date Recorded By Document 10/24/22 09:02 MW [id number] 10/24/22 09:04 MW 10/24/22 09:02 Wound Center Nurse 2 -Time 09:02 -Correct Patient Yes -Correct Side, Site, Position Yes -Correct Procedure Yes -Procedure Performed Yes -Type of Procedure Debridement -Clinical Debridement Subcutaneous -Tissue Removed Subcutaneous -Post Debridement (cm) - Length 2.5 -Post Debridement (cm) - Width 2.5 -Post Debridement (cm) - Depth 0.5 -Total Square (Post) (cm) 6.25 -Area of Debridement (cm) - Length 2.5 -Area of Debridement (cm) - Width 2.5 -Total Square (Area) (cm) 6.25 -Tunneling No -Undermining/Tunneling No -Circular Undermining No -Wound/Ulcer Outcome Not Healed -Ulcer Cleansing Rinsed/ Irrigated with Saline -Foul Odor after Cleansing No -Bioengineered Tissue No -Bleeding Controlled with Pressure -Treatment Response Procedure Tolerated Well -Offloading No -Debridement - Subq, 1st 20sq cm Yes Pain Scale: 0-10 Numeric Is Patient Pain Free? Yes - Nurse 3 - General Ulcer D/C NN Start: 10/24/22 08:18 Freq: Status: Active Protocol: Activity Type Activity Date Activity User E-sign Co-sign Detail Recorded Client Recorded Date Recorded By Document 10/24/22 10:43 [facility] [id number] 10/24/22 10:44 [facility] 10/24/22 10:43 Wound Care Center Nurse 3 #1 Chin -Ulcer Cleansing Rinsed/ Irrigated with Saline -Foul Odor after Cleansing No -Primary Dressing Applied NonAdherent Contact Layer, Promogran -Primary Dressing Covered/Secured with Dry Gauze, Secured with Tape -Promogran 1 Treatment Response Procedure Tolerated Well Pain Scale: 0-10 Numeric Is Patient Pain Free? Yes - Visit Discharge Discharge Condition Stable Ambulatory Status Ambulatory Transportation Private Auto Accompanied by natalie 10/24/22 1109 <Electronically signed by Joya Galvez NP [employer]-C> Cosigner Signature (if applicable): CC: ~ Signed [facility] Work Phone: 1(322) 982-312701-18-2023 Progress note Author Joya Galvez [facility] October 10, 2022 10:10am Note Date/Time October 10, 2022 1 0:10am [facility] [address] [place] [address] Progress Note - Wound Care 10/10/22 1006 MR#: [id number] Acct: [id number] Name: MY JAMA Rep #:[id number] : 1960 62 From: Joya Galvez NP [employer]-C PCP: YARI Pardo Status:REG RCR Location: History of Present Illness Date of Service: 10/10/22 Chief Complaint: 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 He received courses of chemotherapy followed by radiation treatments, which wereconcluded by the end of 2017. He recently underwent oral surgery and had 8 teeth extracted. Two extraction sites have failed to heal. On November 07, 2021, the patient underwent reconstruction of the jaw using bone from his left lower leg. 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 Progress of Wound: The wound size is about the same but the interior is less slough cleaned up really well with debridement with a #5 curette. Bleeding easier. Cultures cameback positive for MRSA 2+ start him on Flagyl and some Levaquin will continue the Promogran it seems to be working to close about. Subjective Subjective Family was fine with outcomes Objective Data Objective Data As stated above there is no odor or any other issue such as redness or swelling or more slough noted but was positive on cultures for MRSA we will continue Promogran seems to be doing well with that have him wash better with Hibiclens and see if that works for cutting the MRSA Vital Signs: Vital Signs Temp Pulse Resp BP O2 Del Method 97.4 F L 69 16 121/59 H Room Air 10/10/22 08:29 10/10/22 08:29 10/10/22 08:29 10/10/22 08:29 10/10/22 08:29 Oxygen Delivery Method Room Air Weight: 130 lb Body Mass Index (BMI) 22.3 Lab / Micro Data Micro: Microbiology 10/03/22 08:35 Wound Abcess - Face Gram Stain - Final 10/03/22 08:35 Wound Abcess - Face Wound Culture - Final Meth. resistant Staph. aureus 10/03/22 08:35 Wound Abcess - Face Anaerobic Culture - Final Anaerobic cocci Physical Exam Const alert, oriented x3, no apparent distress and well nourished General Appearance: cooperative, comfortable and well developed Orientation / Consciousness: awake, oriented to person, oriented to place and oriented to time HEENT normocephalic and head/scalp atraumatic Head and Scalp: normal to inspection, normocephalic and atraumatic External Ear: external ears normal Throat: other Other Details: A tracheostomy tube is noted to be in place. Eyes PERRL and EOMs intact bilaterally General Eye: normal appearance of both eyes Resp normal respiratory effort, normal air movement, no retractions and no use of accessory muscles Extremity no calf tenderness General Extremity: Negative for clubbing or cyanosis Skin Wound Narrative: A large open wound is noted in the left submandibular area. Dimensions are documented elsewhere. There is a large amount of necrotic and nonviable tissue at the base of the wound. There is also a disagreeable odor. A nearby tracheostomy tube is noted in the midline. Swab cultures have been obtained, for both aerobic and anaerobic bacterial growth. Neuro oriented x3, CN's II-XII intact bilaterally and moves all extremities Sensorium / Orientation: awake, alert, oriented to person, oriented to place andoriented to time Psych Appearance: grossly normal and appropriate Attitude: calm Activity / Motor Behavior: appropriate eye contact Speech: normal speech Mood & Affect: euthymic mood Thought Process: normal thought process Thought Content: normal thought content Attention / Concentration: attention grossly intact Debridement Note Debridement Note Wound debrided: Left jaw surgical nonhealing Type of Debridement: Excisional debridement Anesthesia Used: 5% Lidocaine Gel Depth: in the subcutaneous layer Percentage of wound debrided: 100 Instrument Used: 5mm curette Tissue Removed: Fibrin slough Severity: Fat Layer Exposed Amount of bleeding with debridement: Mild Bleeding Controlled with: Compression and gauze Patient tolerated procedure: Patient tolerated procedure well Post-Debridement Measurements and Additional Note: Post-Debridement Measurements/Treatment - Nurse 1 - General Ulcer Assessment Start: 10/03/22 08:22 Freq: Status: Active Protocol: BRANDAN Activity Type Activity Date Activity User E-sign Co-sign Detail Recorded Client Recorded Date Recorded By Document 10/03/22 08:22 [facility] [id number] 10/03/22 08:25 [facility] Document 10/10/22 08:29 [facility] [id number] 10/10/22 08:32 BM 10/03/22 10/10/22 08:22 08:29 - Today's Visit Information Type of service Follow-up Visit Follow-up Visit (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 (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 ) ) Arrival Mode Ambulatory Ambulatory Transfer Assistance None None Accompanied by natalie daughter Patient Identification Verified (Name & Yes Yes ) Patient Requires Transmission-Based No No Precautions Height and Weight Body Mass Index (BMI) 22.3 22.3 BMI Classification Normal Normal Vital Signs Temperature (97.8 F-99.1 F) 98 F 97.4 F L Temperature Source Temporal Temporal Pulse Rate (60-100) 76 69 Pulse Location Monitor Monitor Respiratory Rate (12-18) 16 16 Respiratory rate source Observation Observation Oxygen Delivery Method Room Air Room Air Blood Pressure (90/60-120/80) 122/56 H 121/59 H Blood Pressure Mean (mm Hg) 78 79 Source Monitor Monitor Position Sitting Sitting Blood Pressure Location Left Arm Left Arm History Since Last Visit- (Skip if this is Patient's initial visit) Have you changed medications since your No No last visit? Any new allergies or adverse reactions No No Had a fall/change in ADL's that may No No increase risk of falls Signs or symptoms of abuse and/or No No neglect since last visit Have you been in the hospital since your No No last visit? Has dressing in place as prescribed Yes Yes Has compression in place as prescribed N/A N/A Has offloadiing in place as prescribed N/A N/A Experienced any changes in pain level or No management Left Footwear Regular Shoe Regular Shoe Right Footwear Regular Shoe Regular Shoe Pain Scale: 0-10 Numeric Is Patient Pain Free? Yes Yes WC - Nurse 1 - General Ulcer Measurement Start: 10/03/22 08:22 Freq: Status: Active Protocol: Activity Type Activity Date Activity User E-sign Co-sign Detail Recorded Client Recorded Date Recorded By Document 10/03/22 08:22 [facility] [id number] 10/03/22 08:25 BM Document 10/10/22 08:29 [facility] [id number] 10/10/22 08:32 BMF 10/03/22 10/10/22 08:22 08:29 Wound Center Nurse 1 #1 Chin -Combined with other wound No No -Current Size (cm) - Length 2.5 2.5 -Current Size (cm) - Width 2.5 2.6 -Current Size (cm) - Depth 0.5 0.5 -Total Square Cm 6.25 6.50 -Date of Last Picture (Recall this 10/03/22 10/10/22 field) -Photo Taken Yes Yes -Epithelialization None Present None Present -Tunneling No No -Undermining/Tunneling No No -Circular Undermining No No -Exudate Amt Large Medium -Exudate Type Serosanguineous Serosanguineous -Wound Margin Thickened Thickened -Granulation Amt Medium (34-66%) Medium (34-66%) -Granulation Quality Red Pale,Red -Slough/Fibrin Yes Yes -Necrosis Amt Medium (34-66%) Medium (34-66%) -Necrotic Tissue Type Adherent Slough Adherent Slough -Texture (Candace-wound Skin Appearance) Assessed, Assessed, Scarring Scarring -Moisture (Candace-wound Skin Appearance) Assessed Assessed -Color (Candace-wound Skin Appearance) Assessed Assessed -Temperature (Candace-wound Skin No Abnormality No Abnormality Appearance) (Pt Warm) (Pt Warm) -Tenderness on Palpation (Candace-wound No No Skin Appearance) -Ulcer Cleansing Soap and Water Soap and Water -Foul Odor after Cleansing No No -Anesthetic Used 5% Lidocaine 5% Lidocaine Gel Gel WC - Nurse 2 - General Ulcer CM Notes Start: 10/03/22 08:22 Freq: Status: Active Protocol: Activity Type Activity Date Activity User E-sign Co-sign Detail Recorded Client Recorded Date Recorded By Document 10/03/22 08:32 MW [id number] 10/03/22 08:37 MW Document 10/10/22 08:39 MW [id number] 10/10/22 08:42 MW 10/03/22 10/10/22 08:32 08:39 Wound Center Nurse 2 #1 Chin -Time 08:33 08:39 -Correct Patient Yes Yes -Correct Side, Site, Position Yes Yes -Correct Procedure Yes Yes -Procedure Performed Yes Yes -Type of Procedure Debridement Debridement -Clinical Debridement Subcutaneous Subcutaneous -Tissue Removed Subcutaneous Subcutaneous -Post Debridement (cm) - Length 2.4 2.4 -Post Debridement (cm) - Width 3.0 2.7 -Post Debridement (cm) - Depth 0.5 0.5 -Total Square (Post) (cm) 7.20 6.48 -Area of Debridement (cm) - Length 2.4 2.4 -Area of Debridement (cm) - Width 3.0 2.7 -Total Square (Area) (cm) 7.20 6.48 -Tunneling No No -Undermining/Tunneling No No -Circular Undermining No No -Wound/Ulcer Outcome Not Healed Not Healed -Ulcer Cleansing Rinsed/ Rinsed/ Irrigated with Irrigated with Saline Saline -Foul Odor after Cleansing No No -Bioengineered Tissue No No -Bleeding Controlled with Pressure Pressure -Treatment Response Procedure Procedure Tolerated Well Tolerated Well -Offloading No No -Debridement - Subq, 1st 20sq cm Yes Yes Pain Scale: 0-10 Numeric Is Patient Pain Free? Yes Yes - Nurse 3 - General Ulcer D/C NN Start: 10/03/22 08:22 Freq: Status: Active Protocol: Activity Type Activity Date Activity User E-sign Co-sign Detail Recorded Client Recorded Date Recorded By Document 10/03/22 08:43 [facility] [id number] 10/03/22 08:43 [facility] Document 10/10/22 08:47 NM [id number] 10/10/22 08:48 NM 10/03/22 10/10/22 08:43 08:47 Wound Care Nurse 3 #1 Chin -Ulcer Cleansing Rinsed/ Rinsed/ Irrigated with Irrigated with Saline Saline -Foul Odor after Cleansing No No -Negative Pressure Wound Therapy N/A -Primary Dressing Applied Promogran NonAdherent Contact Layer, Promogran -Primary Dressing Covered/Secured with Dry Gauze, Secured with Tape -Promogran 1 1 Treatment Response Procedure Tolerated Well Pain Scale: 0-10 Numeric Is Patient Pain Free? Yes Yes - Visit Discharge Discharge Condition Stable Stable Ambulatory Status Ambulatory Ambulatory Transportation Private Auto Private Auto Accompanied by natalie daughter Medication Reconcilliation completed & Yes provided to patient/care provider Clinical Summary of Care Provided Yes Assessment/Plan Assessment/Plan (1) Head and neck cancer: CODE(S): C76.0 - Malignant neoplasm of head, face and neck (2) Delayed surgical wound healing: CODE(S): T81.89XA - Other complications of procedures, not elsewhere classified, initial encounter QUALIFIERS: Encounter type: initial encounter Qualified Code(s): T81.89XA - Other complications of procedures, not elsewhere classified, initial encounter PLAN: Wash area with antibacterial soap and place Promogran and base cover with Adaptic gauze and paper tape daily dressings Follow-up in 1 week Patient to take metronidazole 250 mg 3 times a day for 14 days and Levaquin 500 mg 1 p.o. 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 - Other specified disorders of the skin and subcutaneous tissue related to radiation; Y84.2 - Radiological procedure and radiotherapy as the cause of abnormal reaction of the patient, or of later complication, withoutmention of misadventure at the time of the procedure 10/10/22 1010 <Electronically signed by Joya Galvez NP [employer]> Cosigner Signature (if applicable): CC: ~ Signed [facility] Work Phone: 1([phone]) 186-647101-11-2023 Progress note Author Joya Galvez [facility] October 03, 2022 10:35am Note Date/Time October 03, 2022 1 0:35am [facility] [address] [place] [id number] Progress Note - Wound Care 10/03/22 1032 MR#: [id number] Acct: [id number] Name: MY JAMA Rep #:[id number] : 1960 62 From: Joya Galvez NP [employer] PCP: YARI Pardo Status:REG RCR Location: History of Present Illness Date of Service: 10/03/22 Chief Complaint: 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 He received courses of chemotherapy followed by radiation treatments, which wereconcluded by the end of 2017. He recently underwent oral surgery and had 8 teeth extracted. Two extraction sites have failed to heal. On November 07, 2021, the patient underwent reconstruction of the jaw using bone from his left lower leg. 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 Progress of Wound: The wound size is about the same but the interior is less slough cleaned up really well with debridement with a #5 curette. Bleeding easier. We will culture to make sure that were not missing anything otherwise we will continue with the Promogran it seems to be working to close about. Subjective Subjective Family still happy with outcomes Objective Data Objective Data Measurements are about the same but the debridement was very bloody today which is very good news tissue seen. We will continue with the Promogran and repeat cultures just to make sure on the right track. Vital Signs: Vital Signs Temp Pulse Resp BP O2 Del Method 98 F 76 16 122/56 H Room Air 10/03/22 08:22 10/03/22 08:22 10/03/22 08:22 10/03/22 08:22 10/03/22 08:22 Oxygen Delivery Method Room Air Weight: 130 lb Body Mass Index (BMI) 22.3 Lab / Micro Data Attestation: I reviewed the patient's lab results. Physical Exam Const alert, oriented x3, no apparent distress and well nourished General Appearance: cooperative, comfortable and well developed Orientation / Consciousness: awake, oriented to person, oriented to place and oriented to time HEENT normocephalic and head/scalp atraumatic Head and Scalp: normal to inspection, normocephalic and atraumatic External Ear: external ears normal Throat: other Other Details: A tracheostomy tube is noted to be in place. Eyes PERRL and EOMs intact bilaterally General Eye: normal appearance of both eyes Resp normal respiratory effort, normal air movement, no retractions and no use of accessory muscles Extremity no calf tenderness General Extremity: Negative for clubbing or cyanosis Skin Wound Narrative: A large open wound is noted in the left submandibular area. Dimensions are documented elsewhere. There is a large amount of necrotic and nonviable tissue at the base of the wound. There is also a disagreeable odor. A nearby tracheostomy tube is noted in the midline. Swab cultures have been obtained, for both aerobic and anaerobic bacterial growth. Neuro oriented x3, CN's II-XII intact bilaterally and moves all extremities Sensorium / Orientation: awake, alert, oriented to person, oriented to place andoriented to time Psych Appearance: grossly normal and appropriate Attitude: calm Activity / Motor Behavior: appropriate eye contact Speech: normal speech Mood & Affect: euthymic mood Thought Process: normal thought process Thought Content: normal thought content Attention / Concentration: attention grossly intact Debridement Note Debridement Note Wound debrided: Left jaw surgical site for cancer Laterality: Left Type of Debridement: Excisional debridement Anesthesia Used: 5% Lidocaine Gel Depth: Down to and including healthy tissue Percentage of wound debrided: 100 Instrument Used: 5mm curette Tissue Removed: Fibrin slough Severity: Fat Layer Exposed Amount of bleeding with debridement: Mild Bleeding Controlled with: Compression and gauze Patient tolerated procedure: Patient tolerated procedure well Post-Debridement Measurements and Additional Note: Post-Debridement Measurements/Treatment - Nurse 1 - General Ulcer Assessment Start: 10/03/22 08:22 Freq: Status: Active Protocol: BRANDAN Activity Type Activity Date Activity User E-sign Co-sign Detail Recorded Client Recorded Date Recorded By Document 10/03/22 08:22 [facility] [id number] 10/03/22 08:25 [facility] 10/03/22 08:22 WC - Today's Visit Information Type of service Follow-up Visit (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 ) Arrival Mode Ambulatory Transfer Assistance None Accompanied by natalie Patient Identification Verified (Name & Yes ) Patient Requires Transmission-Based No Precautions Height and Weight Body Mass Index (BMI) 22.3 BMI Classification Normal Vital Signs Temperature (97.8 F-99.1 F) 98 F Temperature Source Temporal Pulse Rate (60-100) 76 Pulse Location Monitor Respiratory Rate (12-18) 16 Respiratory rate source Observation Oxygen Delivery Method Room Air Blood Pressure (90/60-120/80) 122/56 H Blood Pressure Mean (mm Hg) 78 Source Monitor Position Sitting Blood Pressure Location Left Arm History Since Last Visit- (Skip if this is Patient's initial visit) Have you changed medications since your No last visit? Any new allergies or adverse reactions No Had a fall/change in ADL's that may No increase risk of falls Signs or symptoms of abuse and/or No neglect since last visit Have you been in the hospital since your No last visit? Has dressing in place as prescribed Yes Has compression in place as prescribed N/A Has offloadiing in place as prescribed N/A Experienced any changes in pain level or No management Left Footwear Regular Shoe Right Footwear Regular Shoe Pain Scale: 0-10 Numeric Is Patient Pain Free? Yes - Nurse 1 - General Ulcer Measurement Start: 10/03/22 08:22 Freq: Status: Active Protocol: Activity Type Activity Date Activity User E-sign Co-sign Detail Recorded Client Recorded Date Recorded By Document 10/03/22 08:22 [facility] [id number] 10/03/22 08:25 [facility] 10/03/22 08:22 Wound Center Nurse 1 #1 Chin -Combined with other wound No -Current Size (cm) - Length 2.5 -Current Size (cm) - Width 2.5 -Current Size (cm) - Depth 0.5 -Total Square Cm 6.25 -Date of Last Picture (Recall this 10/03/22 field) -Photo Taken Yes -Epithelialization None Present -Tunneling No -Undermining/Tunneling No -Circular Undermining No -Exudate Amt Large -Exudate Type Serosanguineous -Wound Margin Thickened -Granulation Amt Medium (34-66%) -Granulation Quality Red -Slough/Fibrin Yes -Necrosis Amt Medium (34-66%) -Necrotic Tissue Type Adherent Slough -Texture (Candace-wound Skin Appearance) Assessed, Scarring -Moisture (Candace-wound Skin Appearance) Assessed -Color (Candace-wound Skin Appearance) Assessed -Temperature (Candace-wound Skin No Abnormality Appearance) (Pt Warm) -Tenderness on Palpation (Candace-wound No Skin Appearance) -Ulcer Cleansing Soap and Water -Foul Odor after Cleansing No -Anesthetic Used 5% Lidocaine Gel WC - Nurse 2 - General Ulcer CM Notes Start: 10/03/22 08:22 Freq: Status: Active Protocol: Activity Type Activity Date Activity User E-sign Co-sign Detail Recorded Client Recorded Date Recorded By Document 10/03/22 08:32 MW [id number] 10/03/22 08:37 MW 10/03/22 08:32 Wound Center Nurse 2 -Time 08:33 -Correct Patient Yes -Correct Side, Site, Position Yes -Correct Procedure Yes -Procedure Performed Yes -Type of Procedure Debridement -Clinical Debridement Subcutaneous -Tissue Removed Subcutaneous -Post Debridement (cm) - Length 2.4 -Post Debridement (cm) - Width 3.0 -Post Debridement (cm) - Depth 0.5 -Total Square (Post) (cm) 7.20 -Area of Debridement (cm) - Length 2.4 -Area of Debridement (cm) - Width 3.0 -Total Square (Area) (cm) 7.20 -Tunneling No -Undermining/Tunneling No -Circular Undermining No -Wound/Ulcer Outcome Not Healed -Ulcer Cleansing Rinsed/ Irrigated with Saline -Foul Odor after Cleansing No -Bioengineered Tissue No -Bleeding Controlled with Pressure -Treatment Response Procedure Tolerated Well -Offloading No -Debridement - Subq, 1st 20sq cm Yes Pain Scale: 0-10 Numeric Is Patient Pain Free? Yes WC - Nurse 3 - General Ulcer D/C NN Start: 10/03/22 08:22 Freq: Status: Active Protocol: Activity Type Activity Date Activity User E-sign Co-sign Detail Recorded Client Recorded Date Recorded By Document 10/03/22 08:43 [facility] [id number] 10/03/22 08:43 [facility] 10/03/22 08:43 Wound Care Nurse 3 #1 Chin -Ulcer Cleansing Rinsed/ Irrigated with Saline -Foul Odor after Cleansing No -Primary Dressing Applied Promogran -Primary Dressing Covered/Secured with Dry Gauze, Secured with Tape -Promogran 1 Treatment Response Procedure Tolerated Well Pain Scale: 0-10 Numeric Is Patient Pain Free? Yes WC - Visit Discharge Discharge Condition Stable Ambulatory Status Ambulatory Transportation Private Auto Accompanied by natalie Assessment/Plan Assessment/Plan (1) Head and neck cancer: CODE(S): C76.0 - Malignant neoplasm of head, face and neck (2) Delayed surgical wound healing: CODE(S): T81.89XA - Other complications of procedures, not elsewhere classified, initial encounter QUALIFIERS: Encounter type: initial encounter Qualified Code(s): T81.89XA - Other complications of procedures, not elsewhere classified, initial encounter PLAN: Wash area with antibacterial soap and place Promogran and base cover with Adaptic gauze and paper tape daily dressings Follow-up in 1 week We will call with culture results. 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 MY JAMA, is a 61 year old male here for a followup regarding his open anterior chin wound. Last seen 04/16/22. He has been referred to the wound clinic at [place]. He goes once a week and they deride the wound. He has his trach capped today. He is currently on Levaquin for 14 days. He hasbeen seen by [facility] NURSE and is advancing his diet. He is 3 months out from his cancer treatment. He is duefor his 3 month post treatment now. He is being seen by his med onc next week. He has been referredto pain clinic but doesn't have a date for his appointment yet. He is out of pain meds. Dr. Sellersgave him the last script. 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 Patient completed adjuvant chemoradiation on 02/06/22. 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 CT chest with small scattered pulmonary nodules largest RUL 5mm, recommend CT chest in 1yr * 12/22/18: US guided FNA of the left neck mass +SCCa with extensive necrosis, P16 negative. * 12/31/18: Seen by medical oncologist, recommended ENT & PET scan * 01/02/19: OSH ENT consult with left fixed lymphadenopathy, small cystic lesion noted on uvula, negative laryngoscopy * 01/05/19: PET scan with 2 hypermetabolic areas in the left neck (SUV 8.6 max), and increased FDG avidity in the left pharynx (SUV 3.4) measures 1.9cm * 01/30/19: Triple endoscopy with tonsillectomy and uvulectomy removal * 02/09/19: Started chemoradiation therapy * 03/23/19: Last chemotherapy * 03/25/19: Completed chemoradiation therapy * 09/12: Loose anterior mandibular teeth/dental extraction * 09/12: CT neck w/contrast enhancing mass involving the anterior oral cavity & symphysis with bone involvement, no lymphadenopathy * 09/12: Oral cavity biopsy at [facility] +SCCa * 10/14: PET FDG avid oral cavity mass w/bone involvement SUV12, no lymphadenopathy or distant metastasis * 11/07/21: S/p triple, trach, PEG, composite resection, excision of skin and soft tissue, segmental mandibulectomy, right neck dissection, left neck exploration for vessels, reconstruction with left ALT and left fibular free flap. Path + 6.5cm SCCa, 12/11 lymph nodes + metastasis. * 11/10/21: S/p left neck exploration and revision of ALT flap (release of arterial kinking) * 12/12: TB recommends radiation +/- chemotherapy * 11/29/21: Trach changed to #4 cuffless & capped, +cellulitis of chin and fibula on bactrim * 12/03/21: Decannulated, decreased erythema * 12/05/21: ED visit for SOB, 4-0 trach replaced * 12/12: Started chemoradiation therapy * 12/18: Trach open #4 * 12/29/21: Urgent add on - trach upsized to a #6 distal XLT * 02/06/22: Completed chemoradiation * 04/02/22: Left neck wound increased in size. Cultures obtained- + MRSA - recommend bactroban * 05/14: Seeing wound care for stable midline neck wound - doing serial debridements * SH: * Tob: 1ppd/35 years. currently down to 2-3 cigs/day. * ETOH: beer. 12pk/week - but just cut down to a few a day * Here with family * By signing my name below, I, Kuldeep Braden, attest that this documentation has been prepared under the direction and in the presence of Dr. Rachel Brooks MD. * All medical record entries made by the Scribe were at my direction and personally dictated by me, Dr. Rachel Brooks. I have reviewed the chart and agree that the record accurately reflects my personal performance of the history, physical exam, discussion and plan. [facility] Work Phone: 1(781) 479-263807-25-2022 History of Present illness Narrative* Mr. MY JAMA, is a 61 year old male here for a followup regarding his open anterior chin wound. Last seen 04/16/22. He has been referred to the wound clinic at [place]. He goes once a week and they deride the wound. He has his trach capped today. He is currently on Levaquin for 14 days. He hasbeen seen by [facility] NURSE and is advancing his diet. He is 3 months out from his cancer treatment. He is duefor his 3 month post treatment now. He is being seen by his med onc next week. He has been referredto pain clinic but doesn't have a date for his appointment yet. He is out of pain meds. Dr. Sellersgave him the last script. * He has a history of G6F7sY1 oral cavity SCCa with chin involvement s/p triple, trach, PEG, composite resection, excision of skin and soft tissue, segmental mandibulectomy, right neck dissection, leftneck exploration for vessels, reconstruction with left ALT and left fibular free flap on 11/07/21. Patient completed adjuvant chemoradiation on 02/06/22. * History: * Dx1: XqP3bQ6 left neck (unknown primary) 2018 * Dx2: [id number] SCCa of the oral cavity 2020 * 04/28/18: +odynophagia, EGD +distal esophagitis, biopsies +reflux * Late 11/11: First noticed left neck mass * 12/15/18: 1st evaluation, for enlarging left neck mass * 12/17/18: CT neck and chest with left pathologic lymphadenopathy measuring 1.8x1.8x2.9cm and second lymph node measuring 1.2x1.6cm. CT chest with small scattered pulmonary nodules largest RUL 5mm, recommend CT chest in 1yr * 12/22/18: US guided FNA of the left neck mass +SCCa with extensive necrosis, P16 negative. * 12/31/18: Seen by medical oncologist, recommended ENT & PET scan * 01/02/19: OSH ENT consult with left fixed lymphadenopathy, small cystic lesion noted on uvula, negative laryngoscopy * 01/05/19: PET scan with 2 hypermetabolic areas in the left neck (SUV 8.6 max), and increased FDG avidity in the left pharynx (SUV 3.4) measures 1.9cm * 01/30/19: Triple endoscopy with tonsillectomy and uvulectomy removal * 02/09/19: Started chemoradiation therapy * 03/23/19: Last chemotherapy * 03/25/19: Completed chemoradiation therapy * 09/12: Loose anterior mandibular teeth/dental extraction * 09/12: CT neck w/contrast enhancing mass involving the anterior oral cavity & symphysis with bone involvement, no lymphadenopathy * 09/12: Oral cavity biopsy at [facility] +SCCa * 10/14: PET FDG avid oral cavity mass w/bone involvement SUV12, no lymphadenopathy or distant metastasis * 11/07/21: S/p triple, trach, PEG, composite resection, excision of skin and soft tissue, segmental mandibulectomy, right neck dissection, left neck exploration for vessels, reconstruction with left ALT and left fibular free flap. Path + 6.5cm SCCa, 3 lymph nodes + metastasis. * 11/10/21: S/p left neck exploration and revision of ALT flap (release of arterial kinking) * 12/12: TB recommends radiation +/- chemotherapy * 11/29/21: Trach changed to #4 cuffless & capped, +cellulitis of chin and fibula on bactrim * 12/03/21: Decannulated, decreased erythema * 12/05/21: ED visit for SOB, 4-0 trach replaced * 12/12: Started chemoradiation therapy * 12/18: Trach open #4 * 12/29/21: Urgent add on - trach upsized to a #6 distal XLT * 02/06/22: Completed chemoradiation * 04/02/22: Left neck wound increased in size. Cultures obtained- + MRSA - recommend bactroban * 05/14: Seeing wound care for stable midline neck wound - doing serial debridements * SH: * Tob: 1ppd/35 years. currently down to 2-3 cigs/day. * ETOH: beer. 12pk/week - but just cut down to a few a day * Here with family * By signing my name below, I, Kuldeep Braden, attest that this documentation has been prepared under the direction and in the presence of Dr. Rachel Brooks MD. * All medical record entries made by the Scribe were at my direction and personally dictated by me, Dr. Rachel Brooks. I have reviewed the chart and agree that the record accurately reflects my personal performance of the history, physical exam, discussion and plan. [facility] Work Phone: 1(751) 119-663007-11-2022 History of Present illness Narrative* Mr. MY JAMA, is a 61 year old male here for a followup regarding his open anterior chin wound. Last seen 04/02/22. Cultures obtained at that time and + for MRSA. Patient was started on Bactroban ointment - he was only able to pick this up on Saturday. Daughter thinks this is looking slightly better. He has been referred to the wound clinic at [place]. He is seeing the wound care clinic next week. He has his trach capped today. He had an MBS w/ speech. * He has a history of Q3J5sR0 oral cavity SCCa with chin involvement s/p triple, trach, PEG, composite resection, excision of skin and soft tissue, segmental mandibulectomy, right neck dissection, leftneck exploration for vessels, reconstruction with left ALT and left fibular free flap on 11/07/21. Patient completed adjuvant chemoradiation on 02/06/22. * History: * Dx1: JpD2bX8 left neck (unknown primary) 2018 * Dx2: R7C2mR3 SCCa of the oral cavity 2020 * 04/28/18: +odynophagia, EGD +distal esophagitis, biopsies +reflux * Late 11/11: First noticed left neck mass * 12/15/18: 1st evaluation, for enlarging left neck mass * 12/17/18: CT neck and chest with left pathologic lymphadenopathy measuring 1.8x1.8x2.9cm and second lymph node measuring 1.2x1.6cm. CT chest with small scattered pulmonary nodules largest RUL 5mm, recommend CT chest in 1yr * 12/22/18: US guided FNA of the left neck mass +SCCa with extensive necrosis, P16 negative. * 12/31/18: Seen by medical oncologist, recommended ENT & PET scan * 01/02/19: OSH ENT consult with left fixed lymphadenopathy, small cystic lesion noted on uvula, negative laryngoscopy * 01/05/19: PET scan with 2 hypermetabolic areas in the left neck (SUV 8.6 max), and increased FDG avidity in the left pharynx (SUV 3.4) measures 1.9cm * 01/30/19: Triple endoscopy with tonsillectomy and uvulectomy removal * 02/09/19: Started chemoradiation therapy * 03/23/19: Last chemotherapy * 03/25/19: Completed chemoradiation therapy * 09/12: Loose anterior mandibular teeth/dental extraction * 09/12: CT neck w/contrast enhancing mass involving the anterior oral cavity & symphysis with bone involvement, no lymphadenopathy * 09/12: Oral cavity biopsy at [facility] +SCCa * 10/14: PET FDG avid oral cavity mass w/bone involvement SUV12, no lymphadenopathy or distant metastasis * 11/07/21: S/p triple, trach, PEG, composite resection, excision of skin and soft tissue, segmental mandibulectomy, right neck dissection, left neck exploration for vessels, reconstruction with left ALT and left fibular free flap. Path + 6.5cm SCCa, 12/11 lymph nodes + metastasis. * 11/10/21: S/p left neck exploration and revision of ALT flap (release of arterial kinking) * 12/12: TB recommends radiation +/- chemotherapy * 11/29/21: Trach changed to #4 cuffless & capped, +cellulitis of chin and fibula on bactrim * 12/03/21: Decannulated, decreased erythema * 12/05/21: ED visit for SOB, 4-0 trach replaced * 12/12: Started chemoradiation therapy * 12/18: Trach open #4 * 12/29/21: Urgent add on - trach upsized to a #6 distal XLT * 02/06/22: Completed chemoradiation * 04/02/22: Left neck wound increased in size. Cultures obtained- + MRSA - recommend bactroban * SH: * Tob: 1ppd/35 years. currently down to 2-3 cigs/day. * ETOH: beer. 12pk/week - but just cut down to a few a day * Here with family * By signing my name below, I, uKldeep Braden, attest that this documentation has been prepared under the direction and in the presence of Dr. Rachel Brooks MD. * All medical record entries made by the Violetaibe were at my direction and personally dictated by me, Dr. Rachel Brooks. I have reviewed the chart and agree that the record accurately reflects my personal performance of the history, physical exam, discussion and plan. [facility] Work Phone: 1(665) 293-413002-15-2022 History of Present illness Narrative* Mr. MY JAMA, is a 61 year old male here for a post op visit s/p triple, trach, PEG, composite resection, excision of skin and soft tissue, segmental mandibulectomy, right neck dissection, leftneck exploration for vessels, reconstruction with left ALT and left fibular free flap on 11/07/21. Path + 6.5cm SCCa, 12/11 lymph nodes +. Patient was taken back to the OR on 11/10/21 for left neck exploration and revision of ALT flap. Patient was discharged to SNF on 11/17/21. Patient was discussed atTB on 11/24/21. Recommendation is for * History: * Dx1: BrT8mB1 left neck (unknown primary) 2018 * Dx2: SCCa of the oral cavity 2020 * 04/28/18: +odynophagia, EGD +distal esophagitis, biopsies +reflux * Late 11/11: First noticed left neck mass * 12/15/18: 1st evaluation, for enlarging left neck mass * 12/17/18: CT neck and chest with left pathologic lymphadenopathy measuring 1.8x1.8x2.9cm and second lymph node measuring 1.2x1.6cm. CT chest with small scattered pulmonary nodules largest RUL 5mm, recommend CT chest in 1yr * 12/22/18: US guided FNA of the left neck mass +SCCa with extensive necrosis, P16 negative. * 12/31/18: Seen by medical oncologist, recommended ENT & PET scan * 01/02/19: OSH ENT consult with left fixed lymphadenopathy, small cystic lesion noted on uvula, negative laryngoscopy * 01/05/19: PET scan with 2 hypermetabolic areas in the left neck (SUV 8.6 max), and increased FDG avidity in the left pharynx (SUV 3.4) measures 1.9cm * 01/30/19: Triple endoscopy with tonsillectomy and uvulectomy removal * 02/09/19: Started chemoradiation therapy * 03/23/19: Last chemotherapy * 03/25/19: Completed chemoradiation therapy * 09/12: Loose anterior mandibular teeth/dental extraction * 09/12: CT neck w/contrast enhancing mass involving the anterior oral cavity & symphysis with bone involvement, no lymphadenopathy * 09/12: Oral cavity biopsy at [facility] +SCCa * 10/14: PET FDG avid oral cavity mass w/bone involvement SUV12, no lymphadenopathy or distant metastasis * SH: * Tob: 1ppd/35 years. currently down to 2-3 cigs/day * ETOH: beer. 12pk/week - but just cut down to a few a day * Here with family * By signing my name below, I, Kuldeep Braden, attest that this documentation has been prepared under the direction and in the presence of Dr. Rachel Brooks MD. * All medical record entries made by the Violetaibnallely were at my direction and personally dictated by me, Dr. Rachel Brooks. I have reviewed the chart and agree that the record accurately reflects my personal performance of the history, physical exam, discussion and plan. [id number]-Vqigjfjgndrdaf-Qvzniwf Work Phone: [phone] History of Present illness Narrative* Mr. MY JAMA, is a 61 year old male here for a second post op visit s/p triple, trach, PEG, composite resection, excision of skin and soft tissue, segmental mandibulectomy, right neck dissection, left neck exploration for vessels, reconstruction with left ALT and left fibular free flap on 11/07/21. Path + 6.5cm SCCa, 12/11 lymph nodes +. Patient was taken back to the OR on 11/10/21 for left neck exploration and revision of ALT flap. Last seen 11/29/21. Trach was downsized to 4 and capped. Patient reports he has had the trach capped 15/04 for the past few days. Patient [facility]the SNF on 11/29/21. He is currently on Bactrim for leg cellulitis. He has been seen by Dr. Sellers for adjuvant radiation. * History: * Dx1: [id number] left neck (unknown primary) 2018 * Dx2: SCCa of the oral cavity 2020 * 04/28/18: +odynophagia, EGD +distal esophagitis, biopsies +reflux * Late 11/11: First noticed left neck mass * 12/15/18: 1st evaluation, for enlarging left neck mass * 12/17/18: CT neck and chest with left pathologic lymphadenopathy measuring 1.8x1.8x2.9cm and second lymph node measuring 1.2x1.6cm. CT chest with small scattered pulmonary nodules largest RUL 5mm, recommend CT chest in 1yr * 12/22/18: US guided FNA of the left neck mass +SCCa with extensive necrosis, P16 negative. * 12/31/18: Seen by medical oncologist, recommended ENT & PET scan * 01/02/19: OSH ENT consult with left fixed lymphadenopathy, small cystic lesion noted on uvula, negative laryngoscopy * 01/05/19: PET scan with 2 hypermetabolic areas in the left neck (SUV 8.6 max), and increased FDG avidity in the left pharynx (SUV 3.4) measures 1.9cm * 01/30/19: Triple endoscopy with tonsillectomy and uvulectomy removal * 02/09/19: Started chemoradiation therapy * 03/23/19: Last chemotherapy * 03/25/19: Completed chemoradiation therapy * 09/12: Loose anterior mandibular teeth/dental extraction * 09/12: CT neck w/contrast enhancing mass involving the anterior oral cavity & symphysis with bone involvement, no lymphadenopathy * 09/12: Oral cavity biopsy at [facility] +SCCa * 10/14: PET FDG avid oral cavity mass w/bone involvement SUV12, no lymphadenopathy or distant metastasis * 11/07/21: S/p triple, trach, PEG, composite resection, excision of skin and soft tissue, segmental mandibulectomy, right neck dissection, left neck exploration for vessels, reconstruction with left ALT and left fibular free flap on 11/07/21. Path + 6.5cm SCCa, 3/21 lymph nodes + * 11/24/21: Tumor board recommendation for adjuvant xrt * SH: * Tob: 1ppd/35 years. currently down to 2-3 cigs/day * ETOH: beer. 12pk/week - but just cut down to a few a day * Here with * By signing my name below, I, Violeta Bradenibe, attest that this documentation has been prepared under the direction and in the presence of Dr. Rachel Brooks MD. * All medical record entries made by the Scribe were at my direction and personally dictated by me, Dr. Rachel Brooks. I have reviewed the chart and agree that the record accurately reflects my personal performance of the history, physical exam, discussion and plan. KA-Fwpbclxjnxgazq-Jplaq Work Phone: [phone] History of Present illness Narrative* Mr. MY JAMA, is a 61 year old male here for a post op visit s/p triple, trach, PEG, composite resection, excision of skin and soft tissue, segmental mandibulectomy, right neck dissection, leftneck exploration for vessels, reconstruction with left ALT and left fibular free flap on 11/07/21. Path + 6.5cm SCCa, 3/ lymph nodes +. Patient was taken back to the OR on 11/10/21 for left neck exploration and revision of ALT flap. Patient was discharged to SNF on 11/17/21. Patient was discussed atTB on 11/24/21. Recommendation is for postop radiation therapy with consideration for chemoradiation therapy. He is in the SNF but is very motivated to get home. He is NPO on TF. He has his [address] with his speaking valve. * History: * Dx1: [id number] left neck (unknown primary) 2018 * Dx2: [id number] SCCa of the oral cavity 2020 * 04/28/18: +odynophagia, EGD +distal esophagitis, biopsies +reflux * Late 11/11: First noticed left neck mass * 12/15/18: 1st evaluation, for enlarging left neck mass * 12/17/18: CT neck and chest with left pathologic lymphadenopathy measuring 1.8x1.8x2.9cm and second lymph node measuring 1.2x1.6cm. CT chest with small scattered pulmonary nodules largest RUL 5mm, recommend CT chest in 1yr * 12/22/18: US guided FNA of the left neck mass +SCCa with extensive necrosis, P16 negative. * 12/31/18: Seen by medical oncologist, recommended ENT & PET scan * 01/02/19: OSH ENT consult with left fixed lymphadenopathy, small cystic lesion noted on uvula, negative laryngoscopy * 01/05/19: PET scan with 2 hypermetabolic areas in the left neck (SUV 8.6 max), and increased FDG avidity in the left pharynx (SUV 3.4) measures 1.9cm * 01/30/19: Triple endoscopy with tonsillectomy and uvulectomy removal * 02/09/19: Started chemoradiation therapy * 03/23/19: Last chemotherapy * 03/25/19: Completed chemoradiation therapy * 09/12: Loose anterior mandibular teeth/dental extraction * 09/12: CT neck w/contrast enhancing mass involving the anterior oral cavity & symphysis with bone involvement, no lymphadenopathy * 09/12: Oral cavity biopsy at [facility] +SCCa * 10/14: PET FDG avid oral cavity mass w/bone involvement SUV12, no lymphadenopathy or distant metastasis * 11/07/21: S/p triple, trach, PEG, composite resection, excision of skin and soft tissue, segmental mandibulectomy, right neck dissection, left neck exploration for vessels, reconstruction with left ALT and left fibular free flap. Path + 6.5cm SCCa, 12/11 lymph nodes + metastasis. * 11/10/21: S/p left neck exploration and revision of ALT flap (release of arterial kinking) * 12/12: TB recommends radiation +/- chemotherapy * 11/29/21: Trach changed to #4 cuffless & capped * SH: * Tob: 1ppd/35 years. currently down to 2-3 cigs/day * ETOH: beer. 12pk/week - but just cut down to a few a day * Here with family * By signing my name below, I, Kuldeep Braden, attest that this documentation has been prepared under the direction and in the presence of Dr. Rachel Brooks MD. * All medical record entries made by the Violetaibe were at my direction and personally dictated by me, Dr. Rachel Brooks. I have reviewed the chart and agree that the record accurately reflects my personal performance of the history, physical exam, discussion and plan. CD-Clzxbnrszrskxq-Cjwcj [facility] [address] Work Phone: [phone] History of Present illness Narrative* Mr. MY JAMA, is a 61 year old male here for a third post op visit for his [id number] oral cavity SCCa with chin involvement s/p triple, trach, PEG, composite resection, excision of skin and soft tissue, segmental mandibulectomy, right neck dissection, left neck exploration for vessels, reconstruction with left ALT and left fibular free flap on 11/07/21. Patient was seen in the office on 12/04/21 and trach was removed. He presented to the ED on 12/05/21 as he was having SOB when laying down. 4-0 Trach was replaced on 12/05/21. Today he's doing well with no difficulty breathing. He has been tole rating an oral soft diet and oral liquid while supplementing with his PEG tube. He cap's his trach during the day and removes the cap at night. His weight has been stable. No specific ENT complaints today. * History: * Dx1: [id number] left neck (unknown primary) 2018 * Dx2: [id number] SCCa of the oral cavity 2020 * 04/28/18: +odynophagia, EGD +distal esophagitis, biopsies +reflux * Late 11/11: First noticed left neck mass * 12/15/18: 1st evaluation, for enlarging left neck mass * 12/17/18: CT neck and chest with left pathologic lymphadenopathy measuring 1.8x1.8x2.9cm and second lymph node measuring 1.2x1.6cm. CT chest with small scattered pulmonary nodules largest RUL 5mm, recommend CT chest in 1yr * 12/22/18: US guided FNA of the left neck mass +SCCa with extensive necrosis, P16 negative. * 12/31/18: Seen by medical oncologist, recommended ENT & PET scan * 01/02/19: OSH ENT consult with left fixed lymphadenopathy, small cystic lesion noted on uvula, negative laryngoscopy * 01/05/19: PET scan with 2 hypermetabolic areas in the left neck (SUV 8.6 max), and increased FDG avidity in the left pharynx (SUV 3.4) measures 1.9cm * 01/30/19: Triple endoscopy with tonsillectomy and uvulectomy removal * 02/09/19: Started chemoradiation therapy * 03/23/19: Last chemotherapy * 03/25/19: Completed chemoradiation therapy * 09/12: Loose anterior mandibular teeth/dental extraction * 09/12: CT neck w/contrast enhancing mass involving the anterior oral cavity & symphysis with bone involvement, no lymphadenopathy * 09/12: Oral cavity biopsy at [facility] +SCCa * 10/14: PET FDG avid oral cavity mass w/bone involvement SUV12, no lymphadenopathy or distant metastasis * 11/07/21: S/p triple, trach, PEG, composite resection, excision of skin and soft tissue, segmental mandibulectomy, right neck dissection, left neck exploration for vessels, reconstruction with left ALT and left fibular free flap. Path + 6.5cm SCCa, 12/11 lymph nodes + metastasis. * 11/10/21: S/p left neck exploration and revision of ALT flap (release of arterial kinking) * 12/12: TB recommends radiation +/- chemotherapy * 11/29/21: Trach changed to #4 cuffless & capped, +cellulitis of chin and fibula on bactrim * 12/03/21: Decannulated, decreased erythema * 12/05/21: ED visit for SOB, 4-0 trach replaced * SH: * Tob: 1ppd/35 years. currently down to 2-3 cigs/day * ETOH: beer. 12pk/week - but just cut down to a few a day * Here with family * By signing my name below, I, Kuldeep Braden, attest that this documentation has been prepared under the direction and in the presence of Dr. Rachel Brooks MD. * All medical record entries made by the Violetaibnallely were at my direction and personally dictated by me, Dr. Rachel Brooks. I have reviewed the chart and agree that the record accurately reflects my personal performance of the history, physical exam, discussion and plan. TV-Qwnmntngugbyjy-Fypcq Work Phone: [phone]) [phone] History of Present illness Narrative* Mr. MY JAMA, is a 61 year old male here for a third post op visit for his [id number] oral cavity SCCa with chin involvement s/p triple, trach, PEG, composite resection, excision of skin and soft tissue, segmental mandibulectomy, right neck dissection, left neck exploration for vessels, reconstruction with left ALT and left fibular free flap on 11/07/21. Patient was seen in the office on 12/04/21 and trach was removed. He presented to the ED on 12/05/21 as he was having SOB when laying down. 4-0 Trach was replaced on 12/05/21. Today he's doing well with no difficulty breathing. He has been tole rating an oral soft diet and oral liquid while supplementing with his PEG tube. He cap's his trach during the day and removes the cap at night. His weight has been stable. No specific ENT complaints today. He is receiving chemoradiation therapy daily. * History: * Dx1: [id number] left neck (unknown primary) 2018 * Dx2: [id number] SCCa of the oral cavity 2020 * 04/28/18: +odynophagia, EGD +distal esophagitis, biopsies +reflux * Late 11/11: First noticed left neck mass * 12/15/18: 1st evaluation, for enlarging left neck mass * 12/17/18: CT neck and chest with left pathologic lymphadenopathy measuring 1.8x1.8x2.9cm and second lymph node measuring 1.2x1.6cm. CT chest with small scattered pulmonary nodules largest RUL 5mm, recommend CT chest in 1yr * 12/22/18: US guided FNA of the left neck mass +SCCa with extensive necrosis, P16 negative. * 12/31/18: Seen by medical oncologist, recommended ENT & PET scan * 01/02/19: OSH ENT consult with left fixed lymphadenopathy, small cystic lesion noted on uvula, negative laryngoscopy * 01/05/19: PET scan with 2 hypermetabolic areas in the left neck (SUV 8.6 max), and increased FDG avidity in the left pharynx (SUV 3.4) measures 1.9cm * 01/30/19: Triple endoscopy with tonsillectomy and uvulectomy removal * 02/09/19: Started chemoradiation therapy * 03/23/19: Last chemotherapy * 03/25/19: Completed chemoradiation therapy * 09/12: Loose anterior mandibular teeth/dental extraction * 09/12: CT neck w/contrast enhancing mass involving the anterior oral cavity & symphysis with bone involvement, no lymphadenopathy * 09/12: Oral cavity biopsy at [facility] +SCCa * 10/14: PET FDG avid oral cavity mass w/bone involvement SUV12, no lymphadenopathy or distant metastasis * 11/07/21: S/p triple, trach, PEG, composite resection, excision of skin and soft tissue, segmental mandibulectomy, right neck dissection, left neck exploration for vessels, reconstruction with left ALT and left fibular free flap. Path + 6.5cm SCCa, 12/11 lymph nodes + metastasis. * 11/10/21: S/p left neck exploration and revision of ALT flap (release of arterial kinking) * 12/12: TB recommends radiation +/- chemotherapy * 11/29/21: Trach changed to #4 cuffless & capped, +cellulitis of chin and fibula on bactrim * 12/03/21: Decannulated, decreased erythema * 12/05/21: ED visit for SOB, 4-0 trach replaced * 12/12: Started chemoradiation therapy * SH: * Tob: 1ppd/35 years. currently down to 2-3 cigs/day * ETOH: beer. 12pk/week - but just cut down to a few a day * Here with family * By signing my name below, I, Kuldeep Braden, attest that this documentation has been prepared under the direction and in the presence of Dr. Rachel Brooks MD. * All medical record entries made by the Scribe were at my direction and personally dictated by me, Dr. Rachel Brooks. I have reviewed the chart and agree that the record accurately reflects my personal performance of the history, physical exam, discussion and plan. IU-Kabrzuuqtldkff-Vplzg [facility] [address] Work Phone: [phone] History of Present illness Narrative* Mr. MY JAMA, is a 61 year old male here for a cancer follow up. He has a history of [id number] oral cavity SCCa with chin involvement s/p triple, trach, PEG, composite resection, excision of skinand soft tissue, segmental mandibulectomy, right neck dissection, left neck exploration for vessels, reconstruction with left ALT and left fibular free flap on 11/07/21. Last seen 12/29/21. At that timepatient was having issues with shortness of breath when laying flat. Trach was changed from a #4 toa #6 distal xlt. Patient is doing well with this. He is currently getting chemoradiation in [place]. He has 3 more weeks left. * History: * Dx1: [id number] left neck (unknown primary) 2018 * Dx2: [id number] SCCa of the oral cavity 2020 * 04/28/18: +odynophagia, EGD +distal esophagitis, biopsies +reflux * Late 11/11: First noticed left neck mass * 12/15/18: 1st evaluation, for enlarging left neck mass * 12/17/18: CT neck and chest with left pathologic lymphadenopathy measuring 1.8x1.8x2.9cm and second lymph node measuring 1.2x1.6cm. CT chest with small scattered pulmonary nodules largest RUL 5mm, recommend CT chest in 1yr * 12/22/18: US guided FNA of the left neck mass +SCCa with extensive necrosis, P16 negative. * 12/31/18: Seen by medical oncologist, recommended ENT & PET scan * 01/02/19: OSH ENT consult with left fixed lymphadenopathy, small cystic lesion noted on uvula, negative laryngoscopy * 01/05/19: PET scan with 2 hypermetabolic areas in the left neck (SUV 8.6 max), and increased FDG avidity in the left pharynx (SUV 3.4) measures 1.9cm * 01/30/19: Triple endoscopy with tonsillectomy and uvulectomy removal * 02/09/19: Started chemoradiation therapy * 03/23/19: Last chemotherapy * 03/25/19: Completed chemoradiation therapy * 09/12: Loose anterior mandibular teeth/dental extraction * 09/12: CT neck w/contrast enhancing mass involving the anterior oral cavity & symphysis with bone involvement, no lymphadenopathy * 09/12: Oral cavity biopsy at [facility] +SCCa * 10/14: PET FDG avid oral cavity mass w/bone involvement SUV12, no lymphadenopathy or distant metastasis * 11/07/21: S/p triple, trach, PEG, composite resection, excision of skin and soft tissue, segmental mandibulectomy, right neck dissection, left neck exploration for vessels, reconstruction with left ALT and left fibular free flap. Path + 6.5cm SCCa, 12/11 lymph nodes + metastasis. * 11/10/21: S/p left neck exploration and revision of ALT flap (release of arterial kinking) * 12/12: TB recommends radiation +/- chemotherapy * 11/29/21: Trach changed to #4 cuffless & capped, +cellulitis of chin and fibula on bactrim * 12/03/21: Decannulated, decreased erythema * 12/05/21: ED visit for SOB, 4-0 trach replaced * 12/12: Started chemoradiation therapy * 12/18: Trach open #4 * 12/29/21: Urgent add on - trach upsized to a #6 distal XLT * SH: * Tob: 1ppd/35 years. currently down to 2-3 cigs/day * ETOH: beer. 12pk/week - but just cut down to a few a day * Here with family * By signing my name below, I, Kuldeep Braden, attest that this documentation has been prepared under the direction and in the presence of Dr. Rachel Brooks MD. * All medical record entries made by the Scribe were at my direction and personally dictated by me, Dr. Rachel Brooks. I have reviewed the chart and agree that the record accurately reflects my personal performance of the history, physical exam, discussion and plan. NQ-Fzhtoeyarmwyen-Anuyt Work Phone: [phone]) [phone] History of Present illness Narrative* Mr. MY JAMA, is a 61 year old male here for a cancer follow up. He has a history of [id number] oral cavity SCCa with chin involvement s/p triple, trach, PEG, composite resection, excision of skinand soft tissue, segmental mandibulectomy, right neck dissection, left neck exploration for vessels, reconstruction with left ALT and left fibular free flap on 11/07/21. Last seen 12/29/21. At that timepatient was having issues with shortness of breath when laying flat. Trach was changed from a #4 toa #6 distal xlt. Patient is doing well with this. He is currently getting chemoradiation in [place]. He has 3 more weeks left with 2 more chemo treatments. He is tolerating daily therapy. He is coughing up more blood clots recently. Daughters report he is always cold and sits by an electric heater all day. They are out of saline bullets for his trach * History: * Dx1: [id number] left neck (unknown primary) 2018 * Dx2: [id number] SCCa of the oral cavity 2020 * 04/28/18: +odynophagia, EGD +distal esophagitis, biopsies +reflux * Late 11/11: First noticed left neck mass * 12/15/18: 1st evaluation, for enlarging left neck mass * 12/17/18: CT neck and chest with left pathologic lymphadenopathy measuring 1.8x1.8x2.9cm and second lymph node measuring 1.2x1.6cm. CT chest with small scattered pulmonary nodules largest RUL 5mm, recommend CT chest in 1yr * 12/22/18: US guided FNA of the left neck mass +SCCa with extensive necrosis, P16 negative. * 12/31/18: Seen by medical oncologist, recommended ENT & PET scan * 01/02/19: OSH ENT consult with left fixed lymphadenopathy, small cystic lesion noted on uvula, negative laryngoscopy * 01/05/19: PET scan with 2 hypermetabolic areas in the left neck (SUV 8.6 max), and increased FDG avidity in the left pharynx (SUV 3.4) measures 1.9cm * 01/30/19: Triple endoscopy with tonsillectomy and uvulectomy removal * 02/09/19: Started chemoradiation therapy * 03/23/19: Last chemotherapy * 03/25/19: Completed chemoradiation therapy * 09/12: Loose anterior mandibular teeth/dental extraction * 09/12: CT neck w/contrast enhancing mass involving the anterior oral cavity & symphysis with bone involvement, no lymphadenopathy * 09/12: Oral cavity biopsy at [facility] +SCCa * 10/14: PET FDG avid oral cavity mass w/bone involvement SUV12, no lymphadenopathy or distant metastasis * 11/07/21: S/p triple, trach, PEG, composite resection, excision of skin and soft tissue, segmental mandibulectomy, right neck dissection, left neck exploration for vessels, reconstruction with left ALT and left fibular free flap. Path + 6.5cm SCCa, 12/11 lymph nodes + metastasis. * 11/10/21: S/p left neck exploration and revision of ALT flap (release of arterial kinking) * 12/12: TB recommends radiation +/- chemotherapy * 11/29/21: Trach changed to #4 cuffless & capped, +cellulitis of chin and fibula on bactrim * 12/03/21: Decannulated, decreased erythema * 12/05/21: ED visit for SOB, 4-0 trach replaced * 12/12: Started chemoradiation therapy * 12/18: Trach open #4 * 12/29/21: Urgent add on - trach upsized to a #6 distal XLT * SH: * Tob: 1ppd/35 years. currently down to 2-3 cigs/day * ETOH: beer. 12pk/week - but just cut down to a few a day * Here with family * By signing my name below, I, Kuldeep Braden, attest that this documentation has been prepared under the direction and in the presence of Dr. Rachel Brooks MD. * All medical record entries made by the Scribe were at my direction and personally dictated by me, Dr. Rachel Brooks. I have reviewed the chart and agree that the record accurately reflects my personal performance of the history, physical exam, discussion and plan. EL-Hnnkubanuynmiv-Sswes [facility] [id number] Work Phone: 1([phone]) [phone] History of Present illness Narrative* Mr. MY JAMA, is a 61 year old male here for a cancer follow up. He has a history of [id number] oral cavity SCCa with chin involvement s/p triple, trach, PEG, composite resection, excision of skinand soft tissue, segmental mandibulectomy, right neck dissection, left neck exploration for vessels, reconstruction with left ALT and left fibular free flap on 11/07/21. Last seen 01/15/22. Patient completed adjuvant chemoradiation on 02/06/22. He has an open sore on his anterior chin. He still has his trach in place. He has not been wearing his speaking valve or capping the trach * History: * Dx1: [id number] left neck (unknown primary) 2018 * Dx2: [id number] SCCa of the oral cavity 2020 * 04/28/18: +odynophagia, EGD +distal esophagitis, biopsies +reflux * Late 11/11: First noticed left neck mass * 12/15/18: 1st evaluation, for enlarging left neck mass * 12/17/18: CT neck and chest with left pathologic lymphadenopathy measuring 1.8x1.8x2.9cm and second lymph node measuring 1.2x1.6cm. CT chest with small scattered pulmonary nodules largest RUL 5mm, recommend CT chest in 1yr * 12/22/18: US guided FNA of the left neck mass +SCCa with extensive necrosis, P16 negative. * 12/31/18: Seen by medical oncologist, recommended ENT & PET scan * 01/02/19: OSH ENT consult with left fixed lymphadenopathy, small cystic lesion noted on uvula, negative laryngoscopy * 01/05/19: PET scan with 2 hypermetabolic areas in the left neck (SUV 8.6 max), and increased FDG avidity in the left pharynx (SUV 3.4) measures 1.9cm * 01/30/19: Triple endoscopy with tonsillectomy and uvulectomy removal * 02/09/19: Started chemoradiation therapy * 03/23/19: Last chemotherapy * 03/25/19: Completed chemoradiation therapy * 09/12: Loose anterior mandibular teeth/dental extraction * 09/12: CT neck w/contrast enhancing mass involving the anterior oral cavity & symphysis with bone involvement, no lymphadenopathy * 09/12: Oral cavity biopsy at [facility] +SCCa * 10/14: PET FDG avid oral cavity mass w/bone involvement SUV12, no lymphadenopathy or distant metastasis * 11/07/21: S/p triple, trach, PEG, composite resection, excision of skin and soft tissue, segmental mandibulectomy, right neck dissection, left neck exploration for vessels, reconstruction with left ALT and left fibular free flap. Path + 6.5cm SCCa, 12/11 lymph nodes + metastasis. * 11/10/21: S/p left neck exploration and revision of ALT flap (release of arterial kinking) * 12/12: TB recommends radiation +/- chemotherapy * 11/29/21: Trach changed to #4 cuffless & capped, +cellulitis of chin and fibula on bactrim * 12/03/21: Decannulated, decreased erythema * 12/05/21: ED visit for SOB, 4-0 trach replaced * 12/12: Started chemoradiation therapy * 12/18: Trach open #4 * 12/29/21: Urgent add on - trach upsized to a #6 distal XLT * 02/06/22: Completed chemoradiation. * SH: * Tob: 1ppd/35 years. currently down to 2-3 cigs/day * ETOH: beer. 12pk/week - but just cut down to a few a day * Here with family * By signing my name below, I, Kuldeep Braden, attest that this documentation has been prepared under the direction and in the presence of Dr. Rachel Brooks MD. * All medical record entries made by the Scribe were at my direction and personally dictated by me, Dr. Rachel Brooks. I have reviewed the chart and agree that the record accurately reflects my personal performance of the history, physical exam, discussion and plan. KH-Jngkzdxbdwgyqs-Ghhfh Work Phone: 1(236) [phone] History of Present illness Narrative* Mr. MY JAMA, is a 61 year old male here for a cancer follow up. 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 Last seen 01/15/22. Patient completed adjuvant chemoradiation on 02/06/22. He has an open sore on his anterior chin. He still has his trach in place. He has not been wearing his speaking valve or capping the trach * History: * Dx1: [id number] left neck (unknown primary) 2018 * Dx2: [id number] SCCa of the oral cavity 2020 * 04/28/18: +odynophagia, EGD +distal esophagitis, biopsies +reflux * Late 11/11: First noticed left neck mass * 12/15/18: 1st evaluation, for enlarging left neck mass * 12/17/18: CT neck and chest with left pathologic lymphadenopathy measuring 1.8x1.8x2.9cm and second lymph node measuring 1.2x1.6cm. CT chest with small scattered pulmonary nodules largest RUL 5mm, recommend CT chest in 1yr * 12/22/18: US guided FNA of the left neck mass +SCCa with extensive necrosis, P16 negative. * 12/31/18: Seen by medical oncologist, recommended ENT & PET scan * 01/02/19: OSH ENT consult with left fixed lymphadenopathy, small cystic lesion noted on uvula, negative laryngoscopy * 01/05/19: PET scan with 2 hypermetabolic areas in the left neck (SUV 8.6 max), and increased FDG avidity in the left pharynx (SUV 3.4) measures 1.9cm * 01/30/19: Triple endoscopy with tonsillectomy and uvulectomy removal * 02/09/19: Started chemoradiation therapy * 03/23/19: Last chemotherapy * 03/25/19: Completed chemoradiation therapy * 09/12: Loose anterior mandibular teeth/dental extraction * 09/12: CT neck w/contrast enhancing mass involving the anterior oral cavity & symphysis with bone involvement, no lymphadenopathy * 09/12: Oral cavity biopsy at [facility] +SCCa * 10/14: PET FDG avid oral cavity mass w/bone involvement SUV12, no lymphadenopathy or distant metastasis * 11/07/21: S/p triple, trach, PEG, composite resection, excision of skin and soft tissue, segmental mandibulectomy, right neck dissection, left neck exploration for vessels, reconstruction with left ALT and left fibular free flap. Path + 6.5cm SCCa, 12/11 lymph nodes + metastasis. * 11/10/21: S/p left neck exploration and revision of ALT flap (release of arterial kinking) * 12/12: TB recommends radiation +/- chemotherapy * 11/29/21: Trach changed to #4 cuffless & capped, +cellulitis of chin and fibula on bactrim * 12/03/21: Decannulated, decreased erythema * 12/05/21: ED visit for SOB, 4-0 trach replaced * 12/12: Started chemoradiation therapy * 12/18: Trach open #4 * 12/29/21: Urgent add on - trach upsized to a #6 distal XLT * 02/06/22: Completed chemoradiation * SH: * Tob: 1ppd/35 years. currently down to 2-3 cigs/day * ETOH: beer. 12pk/week - but just cut down to a few a day * Here with family * By signing my name below, I, Koki Schneider, Scribe, attest that this documentation has been prepared under the direction and in the presence of Dr. Rachel Brooks MD. * All medical record entries made by the Scribe were at my direction and personally dictated by me, Dr. Rachel Brooks. I have reviewed the chart and agree that the record accurately reflects my personal performance of the history, physical exam, discussion and plan. DJ-Xkvnyxntweqqhw-Ekvbw [facility] [address] Work Phone: 1(157) 157-684802-01-2022 History of Present illness NarrativeThijr ortiz is a patient of one of my partners. He was first treated back in 2019 for metastaticdisease to his left neck from an unknown primary. He received a combination of chemotherapy and radiation. He was lost to follow-up then resurfaced recently with a large oral cavity cancer. This was consistent with squamous cell carcinoma. I personally reviewed the CT scan that was done in October2021. It does show this large lesion involving the anterior floor the mouth mandible and soft tissue and skin of the face. There is no obvious of metastatic disease.EN-Yotgietxfgkgzd-Qwllilgm Work Phone: 1([phone]) [phone] NoteHNO ID: [id number] Author: Laurita Mabry MD Service: ? Author Type: Physician Type: Progress Notes Filed: 10/03/2021 2:06 PM Note Text: I called the patient on the phone number on his [employer] account and went to voicemail. I left voicemail for him to call me back and I left him my cell phone number. Laurita Mabry, [facility]01-10-2022 NoteHNO ID: [id number] Author: Jesika Pichardo MD Service: ? Author Type: Physician Type: Progress Notes Filed: 10/02/2021 3:45 PM Note Text: HPI My Jama is a 61 year old male who presents with follow-up ears. Patient had a left tube put in for the hyperbaric oxygen. Patient underwent chemotherapy and radiation therapy for cancer in the mouth elsewhere. Patient was seen by Dr Mabry and the left tube was placed. Patient is having problems with the right ear and hyperbaric patient also had a biopsy of the oral cavity as well. ROS General Weight loss: No Fatigue: No Night sweats:No Cardiac Chest pain:No Fast heart rate:No Swelling in the feet:No Respiratory Short of breath:No Cough:No Wheezing:No Gastrointestinal Nausea:No Vomiting:No Indigestion:No Past medical history, family history, and social history reviewed. PE There were no vitals taken for this visit. General: Patient is awake, alert, NAD. Voice is normal. Skin: normal Eyes: Extraocular motion and Gaze is normal. Ears: Right external auditory canal is normal. TMJ: normal. Right tympanic membranes normal. Left external auditory canal is normal. Left tympanic membrane normal. Tube is clear on the left nose: Septum is normal. Turbinates are normal. Nasopharynx:normal Oral Cavity/Oropharynx: Lips normal Dentition normal purulence inferiorly significant granulation tissue question recurrence Tongue normal. Tonsils normal. Palate and uvula normal. Pharynx posterior normal Hypopharynx: Base of tongue normal Pyriform sinus normal. Larynx: Vocal cords normal. Epiglottis normal. Post cricoid normal. Salivary glands: Parotid normal. Submandibular and sublingual normal. Thyroid: normal. Lymphatic/Neck: Lymph nodes normal. Neurologic: Facial nerve normal. ASSESSMENT/PLAN: 1. Eustachian tube disorder, bilateral - ICD9: 381.9, ICD10: H69.93 Myringotomy and tube right Preop diagnosis: Chronic serous otitis media Postop diagnosis: same Procedure: myringotomy and tube right Procedure: The patient was brought into the procedure room placed in a supine position and the microscope was brought in place. Using topical phenol the eardrum was anesthetized. A myringotomy blade was used to make a incision in the tympanic membrane without difficulty. A #5 suction was used to remove fluid. A Sourav- bobbin tube was placed without difficulty. The patient tolerated the procedure well with no complication. Jesika Pichardo MD Findings will be communicated to the referring physician via mail or electronic medical record.[facility]01-06-2022 NoteHNO ID: [id number] Author: Laurita Mabry MD Service: ? 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 Patient also has a ulcerative lesion after dental extraction in the lower gingiva along the gingival buccal sulcus. RECOMMENDATION/PLAN Ear tube was placed into the left ear without any difficulty. Patient can proceed with hyperbaric oxygen therapy as scheduled. I recommend starting him on Floxin eardrops to the left ear twice a day for 7 days. Patient should follow with me in 1 month for ear tube check. As for his oral cavity lesion, this was biopsied today in the office to rule out malignancy. I will contact the patient with results of this biopsy. 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 Patient stated that he had metastatic disease to the left side of his neck at the time of diagnosis and had a tonsillectomy. He is not sure the exact location of his head neck cancer but it does sound like it was a unknown primary. A few weeks ago, he underwent dental extraction and subsequently developed osteoradionecrosis of the mandible. He recently started hyperbaric oxygen therapy but developed severe left-sided ear pain unable to clear his ears during his treatment. Therefore he was subsequently referred here for ear tube placement. History reviewed. No pertinent past medical history. PAST SURGICAL HISTORY Procedure Laterality Date - TONSILLECTOMY AND ADENOIDECTOMY HX History reviewed. No pertinent family history. CURRENT OUTPATIENT MEDICATIONS Current Outpatient Medications on File Prior to Visit Medication Sig - levothyroxine (SYNTHROID) 75 mcg tablet - fluticasone (FLONASE) 50 mcg/actuation nasal spray instill 2 sprays into each nostril once daily for 1 week then ins... (REFER TO PRESCRIPTION NOTES). - folic acid 400 mcg tablet Take by mouth q 24 HR. - Vitamin E, dl, acetate, 1,000 unit capsule Take by mouth. - amLODIPine (NORVASC) 5 mg tablet Take by mouth. - pentoxifylline ER (TRENTAL) 400 mg CR tablet Take by mouth. - ascorbic acid (VITAMIN C ORAL) Take by mouth. No current facility-administered medications on file prior to visit. ALLERGIES ALLERGIES No Known Allergies The remainder of the patient's history and review of systems is on the outpatient questionaire which was reviewed by me and placed in the outpatient chart. PHYSICAL EXAMINATION Appearance: General examination of the patient's external face, head and neck reveals no abnormalities. The patient is not retrognathic The patient's voice is strong and clear and they communicate easily. Ears: Right EAC patent, TM intact, middle ear space appears healthy. Left EAC patent, TM intact, blood-tinged secretions in the middle ear space. Nose: External nasal exam was normal. Throat: On exam, patient has a large ulcerative wound lesion involving the anterior mandibular gingival labial sulcus. There is exposed mandible. Neck: Palpation of the neck revealed no adenopathy, salivary gland masses or asymmetry, or thyroid masses or enlargement. The neck significantly fibrotic with post radiation changes. Procedure: Left myringotomy and ear tube placement Indication: Left eustachian tube dysfunction unable to tolerate hyperbaric oxygen therapy causing left barotrauma Procedure detail: The left ear was examined under otomicroscopy. Phenol was applied to the inferior aspect of the left tympanic membrane. After waiting adequate time for phenol to take effect, a myringotomy knife was used to make an inferior incision in the TM. An Pryor grommet ear tube was then placed through the myringotomy incision without difficulty. Ciprodex eardrop was then instilled in the ear. Patient tolerated procedure well without any complications. Procedure: Punch biopsy of oral cavity lesion Indication: Ulcerative and friable lesions involving the anterior aspect of the mandibular gingiva. The lesion appears to be involving the gingival labial sulcus and encroaching the floor of mouth. Patient history of head neck cancer status post radiation. Tissue biopsy is needed to rule out malignancy versus granulation tissue Procedure details: 1% lidocaine with 1 200,000 epinephrine was injected into the tissue of the mandibular gingiva. After waiting adequate time for vasoconstriction and anesthetic effect, a 4 mm punch biopsy was taken off from the site of the ulceration. Specimen was sent for permanent pathology. The biopsy site was then cauterized using silver nitrat (more content not included)...[facility]09-01-2019 History of Present illness Narrative* Mr. MY JAMA, is a 61 year old male here today for a newly diagnosed SCCa of the oral cavity.Patient last seen by me 05/2019. Patient has been lost to follow up. Patient seen by his dentist in August 2021 and had a tooth removed. Patient was thought to have early ORN following the dental ext raction. Patient was started on HBO treatments, but could not tolerate them due to ETD. Patient seen by ENT at [facility] and had PE tubes placed. Patient was noted to have a lesion in the oral cavity near dental extraction site. Punch biopsy was obtained and path + SCCa. Patient seen by his radiation oncologist, Dr. Sellers. Patient had a PET scan on 10/11/21. I do have access to the report, but not theimages. * Patient with a history of [id number] left neck (unknown primary) head and neck cancer. He completed chemotherapy 03/23/19 and radiation therapy 03/25/19. He had advanced neck disease which at first became fluctuant after treatment but now has made significant improvement and appears to have resolved. * History: * Dx1: Left neck metastatic lymphadenopathy * Dx2: SCCa of the oral cavity * 04/28/18: +odynophagia, EGD +distal esophagitis, biopsies +reflux * Late 11/11: First noticed left neck mass * 12/15/18: 1st evaluation, for enlarging left neck mass * 12/17/18: CT neck and chest with left pathologic lymphadenopathy measuring 1.8x1.8x2.9cm and second lymph node measuring 1.2x1.6cm. CT chest with small scattered pulmonary nodules largest RUL 5mm, recommend CT chest in 1yr * 12/22/18: US guided FNA of the left neck mass +SCCa with extensive necrosis, P16 negative. * 12/31/18: Seen by medical oncologist, recommended ENT & PET scan * 01/02/19: OSH ENT consult with left fixed lymphadenopathy, small cystic lesion noted on uvula, negative laryngoscopy * 01/05/19: PET scan with 2 hypermetabolic areas in the left neck (SUV 8.6 max), and increased FDG avidity in the left pharynx (SUV 3.4) measures 1.9cm * 01/30/19: Triple endoscopy with tonsillectomy and uvulectomy removal * 02/09/19: Started chemoradiation therapy * 03/23/19: Last chemotherapy * 03/25/19: Completed chemoradiation therapy * SH: * Tob: 1ppd/35 years. currently down to 2-3 cigs/day * ETOH: beer. 12pk/week - but just cut down to a few a day * Here with family * By signing my name below, I, Kuldeep Braden, attest that this documentation has been prepared under the direction and in the presence of Dr. Rachel Brooks MD. * All medical record entries made by the Scribe were at my direction and personally dictated by me, Dr. Rachel Brooks. I have reviewed the chart and agree that the record accurately reflects my personal performance of the history, physical exam, discussion and plan. ZE-Tolgzgpygimaze-Nzjrm Work Phone: [phone]) [phone] History of Present illness Narrative* Mr. MY JAMA, is a 61 year old male here today for a newly diagnosed SCCa of the oral cavity.Patient last seen by me 05/2019. Patient has been lost to follow up. Patient seen by his dentist in August 2021 and had a tooth removed. Patient was thought to have early ORN following the dental ext raction. Patient was started on HBO treatments, but could not tolerate them due to ETD. Patient seen by ENT at [facility] and had PE tubes placed. Patient was noted to have a lesion in the oral cavity near dental extraction site. Punch biopsy was obtained and path + SCCa. Patient seen by his radiation oncologist, Dr. Sellers. Patient had a PET scan on 10/11/21. I do have access to the report, but not theimages. * Patient with a history of [id number] left neck (unknown primary) head and neck cancer. He completed chemotherapy 03/23/19 and radiation therapy 03/25/19. He had advanced neck disease which at first became fluctuant after treatment but now has made significant improvement and appears to have resolved. * History: * Dx1: Left neck metastatic lymphadenopathy * Dx2: SCCa of the oral cavity * 04/28/18: +odynophagia, EGD +distal esophagitis, biopsies +reflux * Late 11/11: First noticed left neck mass * 12/15/18: 1st evaluation, for enlarging left neck mass * 12/17/18: CT neck and chest with left pathologic lymphadenopathy measuring 1.8x1.8x2.9cm and second lymph node measuring 1.2x1.6cm. CT chest with small scattered pulmonary nodules largest RUL 5mm, recommend CT chest in 1yr * 12/22/18: US guided FNA of the left neck mass +SCCa with extensive necrosis, P16 negative. * 12/31/18: Seen by medical oncologist, recommended ENT & PET scan * 01/02/19: OSH ENT consult with left fixed lymphadenopathy, small cystic lesion noted on uvula, negative laryngoscopy * 01/05/19: PET scan with 2 hypermetabolic areas in the left neck (SUV 8.6 max), and increased FDG avidity in the left pharynx (SUV 3.4) measures 1.9cm * 01/30/19: Triple endoscopy with tonsillectomy and uvulectomy removal * 02/09/19: Started chemoradiation therapy * 03/23/19: Last chemotherapy * 03/25/19: Completed chemoradiation therapy * SH: * Tob: 1ppd/35 years. currently down to 2-3 cigs/day * ETOH: beer. 12pk/week - but just cut down to a few a day * Here with family * By signing my name below, I, Kuldeep Braden, attest that this documentation has been prepared under the direction and in the presence of Dr. Rachel Brooks MD. * All medical record entries made by the Violetaibnallely were at my direction and personally dictated by me, Dr. Rachel Brooks. I have reviewed the chart and agree that the record accurately reflects my personal performance of the history, physical exam, discussion and plan. VJ-Mckeftcckaiysn-Xlbkj [facility] [id number] Work Phone: [phone]) [phone] History of Present illness Narrative* Mr. MY JAMA, is a 61 year old male here today for a newly diagnosed SCCa of the oral cavity.Patient last seen by me 05/2019. Patient has been lost to follow up. Patient seen by his dentist in August 2021 and had a tooth removed. Patient was thought to have early ORN following the dental ext raction. Patient was started on HBO treatments, but could not tolerate them due to ETD. Patient seen by ENT at [facility] and had PE tubes placed. Patient was noted to have a lesion in the oral cavity near dental extraction site. Punch biopsy was obtained and path + SCCa. Patient seen by his radiation oncologist, Dr. Sellers. Patient had a PET scan on 10/11/21. I do have access to the report, but not theimages. * Patient with a history of [id number] left neck (unknown primary) head and neck cancer. He completed chemotherapy 03/23/19 and radiation therapy 03/25/19. He had advanced neck disease which at first became fluctuant after treatment but now has made significant improvement and appears to have resolved. * History: * Dx1: Left neck metastatic lymphadenopathy * Dx2: SCCa of the oral cavity * 04/28/18: +odynophagia, EGD +distal esophagitis, biopsies +reflux * Late 11/11: First noticed left neck mass * 12/15/18: 1st evaluation, for enlarging left neck mass * 12/17/18: CT neck and chest with left pathologic lymphadenopathy measuring 1.8x1.8x2.9cm and second lymph node measuring 1.2x1.6cm. CT chest with small scattered pulmonary nodules largest RUL 5mm, recommend CT chest in 1yr * 12/22/18: US guided FNA of the left neck mass +SCCa with extensive necrosis, P16 negative. * 12/31/18: Seen by medical oncologist, recommended ENT & PET scan * 01/02/19: OSH ENT consult with left fixed lymphadenopathy, small cystic lesion noted on uvula, negative laryngoscopy * 01/05/19: PET scan with 2 hypermetabolic areas in the left neck (SUV 8.6 max), and increased FDG avidity in the left pharynx (SUV 3.4) measures 1.9cm * 01/30/19: Triple endoscopy with tonsillectomy and uvulectomy removal * 02/09/19: Started chemoradiation therapy * 03/23/19: Last chemotherapy * 03/25/19: Completed chemoradiation therapy * SH: * Tob: 1ppd/35 years. currently down to 2-3 cigs/day * ETOH: beer. 12pk/week - but just cut down to a few a day * Here with family * By signing my name below, I, Violeta Bradenibnallely, attest that this documentation has been prepared under the direction and in the presence of Dr. Rachel Brooks MD. * All medical record entries made by the Scribe were at my direction and personally dictated by me, Dr. Rachel Brooks. I have reviewed the chart and agree that the record accurately reflects my personal performance of the history, physical exam, discussion and plan. PD-Nzmdpiquxkxrue-Gjjcbwe Work Phone: [phone]) [phone] History of Present illness Narrative* Mr. MY JAMA, is a 61 year old male here today for a newly diagnosed SCCa of the oral cavity.Patient last seen by me 05/2019. At that time he was seen in follow up of his [id number] unknown primary left neck for which he had received chemoradiation therapy. Patient has been lost to follow up. Patient seen by his dentist in August 2021 and had a tooth removed. Patient was thought to have early ORN following the dental extraction. Patient was started on HBO treatments, but could not toleratethem due to ETD. Patient seen by ENT at [facility] and had PE tubes placed. Patient was noted to have a lesion in the oral cavity near dental extraction site. Punch biopsy was obtained and path + SCCa. Patie nt seen by his radiation oncologist, Dr. Sellers. Patient had a PET scan on 10/11/21. On the PET report there is a FDG avid lesion of the anterior mandible with SUV 12 consistent with primary oral cavity cancer. No lymphadenopathy and no distant metastasis. Biopsy OSH +SCCa. * I personally reviewed his imaging which shows a large 5cm mass involving the anterior symphysis of the mandible with possible extension to the skin. * Per patient he has had worsening mouth pain. Recently noticed change in the color of his skin overlying his chin. * History: * Dx1: [id number] left neck (unknown primary) 2018 * Dx2: SCCa of the oral cavity 2020 * 04/28/18: +odynophagia, EGD +distal esophagitis, biopsies +reflux * Late 11/11: First noticed left neck mass * 12/15/18: 1st evaluation, for enlarging left neck mass * 12/17/18: CT neck and chest with left pathologic lymphadenopathy measuring 1.8x1.8x2.9cm and second lymph node measuring 1.2x1.6cm. CT chest with small scattered pulmonary nodules largest RUL 5mm, recommend CT chest in 1yr * 12/22/18: US guided FNA of the left neck mass +SCCa with extensive necrosis, P16 negative. * 12/31/18: Seen by medical oncologist, recommended ENT & PET scan * 01/02/19: OSH ENT consult with left fixed lymphadenopathy, small cystic lesion noted on uvula, negative laryngoscopy * 01/05/19: PET scan with 2 hypermetabolic areas in the left neck (SUV 8.6 max), and increased FDG avidity in the left pharynx (SUV 3.4) measures 1.9cm * 01/30/19: Triple endoscopy with tonsillectomy and uvulectomy removal * 02/09/19: Started chemoradiation therapy * 03/23/19: Last chemotherapy * 03/25/19: Completed chemoradiation therapy * 09/12: Loose anterior mandibular teeth/dental extraction * 09/12: CT neck w/contrast enhancing mass involving the anterior oral cavity & symphysis with bone involvement, no lymphadenopathy * 09/12: Oral cavity biopsy at [facility] +SCCa * 10/14: PET FDG avid oral cavity mass w/bone involvement SUV12, no lymphadenopathy or distant metastasis * SH: * Tob: 1ppd/35 years. currently down to 2-3 cigs/day * ETOH: beer. 12pk/week - but just cut down to a few a day * Here with family * By signing my name below, I, Kuldeep Braden, attest that this documentation has been prepared under the direction and in the presence of Dr. Rachel Brooks MD. * All medical record entries made by the Kuldeep were at my direction and personally dictated by me, Dr. Rachel Brooks. I have reviewed the chart and agree that the record accurately reflects my personal performance of the history, physical exam, discussion and plan. 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 Head and neck cancer Lung nodules Regional lymph node metastasis present Anemia Cancer related pain Dehydration [facility] Work Phone: Chipq complaint+Reason for visit Narrative* Chief Complaint 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 HEAD/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 NEEDS SUCTIONED Oncology Referral wound F/U - LABS left lower leg swelling, rule out dvt OTV OTV 1 WK - LABS - CARBO 1 WK - LABS - CARBO OTV Oncology 1 WK - LABS - CARBO OTV MALIGNANT NEOPLASM OF MANDIBLE/RX HERE CA Reason for Visit Squamous cell carcin beatrice of mandibular alveolar ridge Head and neck cancer Lung nodules 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 Delayed surgical wound healing Sleep disturbance Head and neck cancer Lung nodules Regional lymph node metastasis present Thrush, oral Head and neck cancer Lung nodules 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 Encounter for chemotherapy management Head and neck cancer Lung nodules 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 Head and neck cancer Lung nodules Regional lymph node metastasis present Anemia Cancer related pain Dehydration [facility] Work Phone: Chiud complaint+Reason for visit Narrative* Chief Complaint 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 HEAD/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 NEEDS SUCTIONED Oncology Referral wound F/U - LABS left lower leg swelling, rule out dvt OTV OTV 1 WK - LABS - CARBO 1 WK - LABS - CARBO OTV Oncology 1 WK - LABS - CARBO OTV 1 WK - LABS - CARBO OTV MALIGNANT NEOPLASM OF MANDIBLE/RX HERE HYPONATREMIA HYPONATREMIA CA HYPONATREMIA Reason for Visit Squamous cell carcin beatrice of mandibular alveolar ridge Head and neck cancer Lung nodules 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 Delayed surgical wound healing Sleep disturbance Head and neck cancer Lung nodules Regional lymph node metastasis present Thrush, oral Head and neck cancer Lung nodules 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 Encounter for chemotherapy management Head and neck cancer Lung nodules 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 Thrush, oral Head and neck cancer Lung nodules Regional lymph node metastasis present Acute bronchitis with bronchospasm Acute hyponatremia 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 Thrush, oral Regional lymph node metastasis present Head and neck cancer Lung nodules Regional lymph node metastasis present Anemia Cancer related pain Dehydration [facility] Work Phone: Chief complaint+Reason for visit Narrative* 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 Complaint 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 HEAD/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 NEEDS 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 Oncology Referral wound F/U - LABS left lower leg swelling, rule out dvt OTV OTV 1 WK - LABS - CARBO 1 WK - LABS - CARBO OTV Oncology 1 WK - LABS - CARBO OTV 1 WK - LABS - CARBO OTV MALIGNANT NEOPLASM OF MANDIBLE/RX HERE HYPONATREMIA HYPONATREMIA HYPONATREMIA OTV HYPONATREMIA CA HYPONATREMIA Reason for Visit Squamous cell carcin beatrice of mandibular alveolar ridge Head and neck cancer Lung nodules 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 Delayed surgical wound healing Sleep disturbance Head and neck cancer Lung nodules Regional lymph node metastasis present Thrush, oral Head and neck cancer Lung nodules 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 Encounter for chemotherapy management Head and neck cancer Lung nodules 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 Thrush, oral Head and neck cancer Lung nodules Regional lymph node metastasis present Acute bronchitis with bronchospasm Acute hyponatremia 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 Thrush, oral 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 Head and neck cancer Lung nodules Regional lymph node metastasis present Anemia Cancer related pain Dehydration [facility] Work Phone: Chief complaint+Reason for visit Narrative* Chief Complaint 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 HEAD/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 NEEDS SUCTIONED Oncology Referral wound F/U - LABS left lower leg swelling, rule out dvt OTV OTV 1 WK - LABS - CARBO 1 WK - LABS - CARBO OTV Oncology 1 WK - LABS - CARBO OTV 1 WK - LABS - CARBO OTV HYPONATREMIA HYPONATREMIA HYPONATREMIA OTV HYPONATREMIA HYPONATREMIA 1 WK - LABS - CARBO OTV OTV CA two week f/u follow up MALIGNANT NEOPLASM OF MANDIBLE/RX HERE Reason for Visit Head and neck cancer Lung nodules Delayed surgical wound healing Sleep disturbance Head and neck cancer Lung nodules Head and neck cancer Lung nodules Encounter for chemotherapy management Head and neck cancer Lung nodules Head and neck cancer Lung nodules Acute bronchitis with bronchospasm Acute hyponatremia SIADH (syndrome of inappropriate ADH production) Head and neck cancer Lung nodules Head and neck cancer Lung nodules Anemia Cancer related pain Dehydration SIADH (syndrome of inappropriate ADH production) Head and neck cancer Lung nodules 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 [facility] Work Phone: Chief complaint+Reason for visit Narrative* Chief Complaint follow up 1 MONTH F/U Oncology Referral SQUAMOUS CELL CARCINOMA MANDIBULAR ALVEOLAR RIDGE 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 wound wound wound CA 3 MO - LABS wound wound wound wound Malignant neoplasm of mandible 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 Reason for Visit Floor of mouth squam ous cell carcinoma 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 Delayed surgical wound healing Head and neck cancer Head and neck cancer Lung nodules Anemia Cancer related pain Dehydration SIADH (syndrome of inappropriate ADH production) Head and neck cancer Lung nodules Delayed surgical wound healing Nonhealing surgical wound Head and neck cancer [facility] Work Phone: Chief complaint+Reason for visit Narrative* Chief Complaint 1 MONTH F/U Oncology Referral SQUAMOUS CELL CARCINOMA MANDIBULAR ALVEOLAR RIDGE 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 wound wound wound CA 3 MO - LABS wound wound wound wound Malignant neoplasm of mandible wound wound wound 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 wound Reason for Visit Floor of mouth squam ous cell carcinoma Floor of mouth squamous cell carcinoma Delayed surgical wound healing Head and neck cancer Head and neck cancer Lung nodules Anemia Cancer related pain Dehydration SIADH (syndrome of inappropriate ADH production) Head and neck cancer Lung nodules Delayed surgical wound healing Nonhealing surgical wound Head and neck cancer Delayed surgical wound healing Nonhealing surgical wound Soft tissue radionecrosis Head and neck cancer [facility] Work Phone: Evaluation note* Constitutional: Awake/alert/oriented x3, no distress, alert and cooperativeSkin: Warm, dry, intactSkin flap to chin as per ENT assessmentEyes: Normal pupils and scleraENMT: Skin flap to chin as per ENT assessmentTrach in situ with trach collarHead/Neck: Incisions c/d/iRespiratory/Thorax: Symmetric chest expansion, diminished breath sounds in right base otherwise good air entry throughout. No wheeze or rhonchi.Cardiovascular: Pulse regular, normal heart sounds, no murmursGastrointestinal: PEG insitu. 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 Head and neck cancer chronic Lung nodules chronic Regional lymph node metastasis present chronic Anemia resolved Cancer related pain resolved Dehydration resolved [facility] Work Phone: Evaluation note* Diagnosis Onset Date Resolution Status 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 Head and neck cancer chronic Lung nodules chronic 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 Head and neck cancer chronic Lung nodules chronic Regional lymph node metastasis present chronic Anemia resolved Cancer related pain resolved Dehydration resolved [facility] Work Phone: Evaluation note* Diagnosis Onset Date Resolution Status 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 Head and neck cancer chronic Lung nodules chronic 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 Delayed surgical wound healing acute Sleep disturbance acute Head and neck cancer chronic Lung nodules chronic Regional lymph node metastasis present chronic Thrush, oral acute Head and neck cancer chronic Lung nodules chronic 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 Encounter for chemotherapy management acute Head and neck cancer chronic Lung nodules chronic 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 Head and neck cancer chronic Lung nodules chronic Regional lymph node metastasis present chronic Anemia resolved Cancer related pain resolved Dehydration resolved [facility] Work Phone: Evaluation note* Diagnosis Onset Date Resolution Status 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 Head and neck cancer chronic Lung nodules chronic 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 Delayed surgical wound healing acute Sleep disturbance acute Head and neck cancer chronic Lung nodules chronic Regional lymph node metastasis present chronic Thrush, oral acute Head and neck cancer chronic Lung nodules chronic 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 Encounter for chemotherapy management acute Head and neck cancer chronic Lung nodules chronic 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 Thrush, oral acute Head and neck cancer chronic Lung nodules chronic Regional lymph node metastasis present chronic Acute bronchitis with bronchospasm acute Acute hyponatremia acute 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 Thrush, oral acute Regional lymph node metastasis present chronic Head and neck cancer chronic Lung nodules chronic Regional lymph node metastasis present chronic Anemia resolved Cancer related pain resolved Dehydration resolved [facility] Work Phone: Evaluation note* Diagnosis Onset Date Resolution Status 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 Head and neck cancer chronic Lung nodules chronic 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 Delayed surgical wound healing acute Sleep disturbance acute Head and neck cancer chronic Lung nodules chronic Regional lymph node metastasis present chronic Thrush, oral acute Head and neck cancer chronic Lung nodules chronic 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 Encounter for chemotherapy management acute Head and neck cancer chronic Lung nodules chronic 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 Thrush, oral acute Head and neck cancer chronic Lung nodules chronic Regional lymph node metastasis present chronic Acute bronchitis with bronchospasm acute Acute hyponatremia acute 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 Thrush, oral acute 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 Head and neck cancer chronic Lung nodules chronic Regional lymph node metastasis present chronic Anemia resolved Cancer related pain resolved Dehydration resolved [facility] Work Phone: Evaluation note* Diagnosis Onset Date Resolution Status Head and neck cancer chronic Lung nodules chronic Delayed surgical wound healing acute Sleep disturbance acute Head and neck cancer chronic Lung nodules chronic Head and neck cancer chronic Lung nodules chronic Encounter for chemotherapy management acute Head and neck cancer chronic Lung nodules chronic Head and neck cancer chronic Lung nodules chronic Acute bronchitis with bronchospasm resolved Acute hyponatremia resolved SIADH (syndrome of inappropriate ADH production) acute Head and neck cancer chronic Lung nodules chronic Head and neck cancer chronic Lung nodules chronic Anemia resolved Cancer related pain resolved Dehydration resolved SIADH (syndrome of inappropriate ADH production) acute Head and neck cancer chronic Lung nodules chronic 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 [facility] Work Phone: Evaluation note* Diagnosis Onset Date Resolution Status Delayed surgical wound healing acute Sleep disturbance acute Head and neck cancer chronic Lung nodules chronic Head and neck cancer chronic Lung nodules chronic Encounter for chemotherapy management acute Head and neck cancer chronic Lung nodules chronic Head and neck cancer chronic Lung nodules chronic Acute bronchitis with bronchospasm resolved Acute hyponatremia resolved SIADH (syndrome of inappropriate ADH production) acute Head and neck cancer chronic Lung nodules chronic Head and neck cancer chronic Lung nodules chronic Anemia resolved Cancer related pain resolved Dehydration resolved SIADH (syndrome of inappropriate ADH production) acute Head and neck cancer chronic Lung nodules chronic 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 [facility] Work Phone: Evaluation note* Diagnosis Onset Date Resolution Status Acute bronchitis with bronchospasm resolved Acute hyponatremia resolved SIADH (syndrome of inappropriate ADH production) acute Head and neck cancer chronic Lung nodules chronic SIADH (syndrome of inappropriate ADH production) acute Head and neck cancer chronic Lung nodules chronic 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 Delayed surgical wound healing acute 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 Lung nodules chronic Anemia resolved Cancer related pain resolved Dehydration resolved SIADH (syndrome of inappropriate ADH production) acute Head and neck cancer chronic Lung nodules chronic [facility] Work Phone: Evaluation note* Diagnosis Onset Date Resolution Status 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 Delayed surgical wound healing acute 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 Lung nodules chronic Anemia resolved Cancer related pain resolved Dehydration resolved SIADH (syndrome of inappropriate ADH production) acute Head and neck cancer chronic Lung nodules chronic Delayed surgical wound healing acute Nonhealing surgical wound ac te-moak Head and neck cancer chronic [facility] Work Phone: Evaluation note* Diagnosis Onset Date Resolution Status 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 Delayed surgical wound healing acute 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 Lung nodules chronic Anemia resolved Cancer related pain resolved Dehydration resolved SIADH (syndrome of inappropriate ADH production) acute Head and neck cancer chronic Lung nodules chronic Delayed surgical wound healing acute Nonhealing surgical wound ac te-moak Head and neck cancer chronic Delayed surgical wound healing acute Nonhealing surgical wound ac te-moak Soft tissue radionecrosis ac te-moak Head and neck cancer chronic [facility] Work Phone: Evaluation note* Diagnosis Onset Date Resolution Status 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 Delayed surgical wound healing acute 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 Lung nodules chronic Anemia resolved Cancer related pain resolved Dehydration resolved SIADH (syndrome of inappropriate ADH production) acute Head and neck cancer chronic Lung nodules chronic Delayed surgical wound healing acute Nonhealing surgical wound ac te-moak Head and neck cancer chronic Delayed surgical wound healing acute Nonhealing surgical wound ac te-moak Soft tissue radionecrosis ac te-moak Head and neck cancer chronic [facility] Work Phone: Evaluation note* Diagnosis Onset Date Resolution Status Delayed surgical wound healing acute Nonhealing surgical wound ac te-moak Soft tissue radionecrosis ac te-moak 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 Delayed surgical wound healing acute Nonhealing surgical wound ac te-moak Soft tissue radionecrosis ac te-moak Head and neck cancer chronic Delayed surgical wound healing acute Nonhealing surgical wound ac te-moak Soft tissue radionecrosis ac te-moak Head and neck cancer chronic Delayed surgical wound healing acute Nonhealing surgical wound ac te-moak Soft tissue radionecrosis ac te-moak Head and neck cancer chronic [facility] Work Phone: Evaluation note* Diagnosis Onset Date Resolution Status 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 Delayed surgical wound healing acute Nonhealing surgical wound ac te-moak Soft tissue radionecrosis ac te-moak Head and neck cancer chronic Delayed surgical wound healing acute Nonhealing surgical wound ac te-moak Soft tissue radionecrosis ac te-moak Head and neck cancer chronic Delayed surgical wound healing acute Nonhealing surgical wound ac te-moak Soft tissue radionecrosis ac te-moak 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 Delayed surgical wound healing acute Nonhealing surgical wound ac te-moak Soft tissue radionecrosis ac te-moak Head and neck cancer chronic [facility] Work Phone: Evaluation note* Diagnosis Onset Date Resolution Status Delayed surgical wound healing acute Nonhealing surgical wound ac te-moak Soft tissue radionecrosis ac te-moak Head and neck cancer chronic Delayed surgical wound healing acute Nonhealing surgical wound ac te-moak Soft tissue radionecrosis ac te-moak 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 Delayed surgical wound healing acute Nonhealing surgical wound ac te-moak Soft tissue radionecrosis ac te-moak 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 Lung nodules chronic Head and neck cancer chronic Lung nodules chronic Anemia resolved Cancer related pain resolved Dehydration resolved Delayed surgical wound healing acute Nonhealing surgical wound ac te-moak Soft tissue radionecrosis ac te-moak Head and neck cancer chronic [facility] Work Phone: Evaluation note* Diagnosis Onset Date Resolution Status Delayed surgical wound healing acute Nonhealing surgical wound ac te-moak Soft tissue radionecrosis ac te-moak 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 Delayed surgical wound healing acute Nonhealing surgical wound ac te-moak Soft tissue radionecrosis ac te-moak 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 Lung nodules chronic Head and neck cancer chronic Lung nodules chronic Anemia resolved Cancer related pain resolved Dehydration resolved Delayed surgical wound healing acute Nonhealing surgical wound ac te-moak Soft tissue radionecrosis ac te-moak Head and neck cancer chronic Delayed surgical wound healing acute Nonhealing surgical wound ac te-moak Soft tissue radionecrosis ac te-moak Head and neck cancer [facility] Work Phone: Evaluation note* Diagnosis Onset Date Resolution Status Delayed surgical wound healing acute Nonhealing surgical wound ac te-moak Soft tissue radionecrosis ac te-moak 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 Delayed surgical wound healing acute Nonhealing surgical wound ac te-moak Soft tissue radionecrosis ac te-moak 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 Lung nodules chronic Head and neck cancer chronic Lung nodules chronic Anemia resolved Cancer related pain resolved Dehydration resolved Delayed surgical wound healing acute Nonhealing surgical wound ac te-moak Soft tissue radionecrosis ac te-moak Head and neck cancer chronic Delayed surgical wound healing acute Nonhealing surgical wound ac te-moak Soft tissue radionecrosis ac te-moak Head and neck cancer chronic Delayed surgical wound healing acute Nonhealing surgical wound ac te-moak Soft tissue radionecrosis ac te-moak 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 [facility] Work Phone: Evaluation note* Diagnosis Onset Date Resolution Status 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 Delayed surgical wound healing acute Nonhealing surgical wound ac te-moak Soft tissue radionecrosis ac te-moak 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 Lung nodules chronic Head and neck cancer chronic Lung nodules chronic Anemia resolved Cancer related pain resolved Dehydration resolved Delayed surgical wound healing acute Nonhealing surgical wound ac [place] Soft tissue radionecrosis ac [place] Head and neck cancer chronic Delayed surgical wound healing acute Nonhealing surgical wound ac [place] Soft tissue radionecrosis ac [place] 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 Delayed surgical wound healing acute Nonhealing surgical wound ac [place] Soft tissue radionecrosis ac [place] Head and neck cancer chronic [facility] Work Phone: Evaluation note* Diagnosis Onset Date Resolution Status Delayed surgical wound healing acute Nonhealing surgical wound ac [place] Soft tissue radionecrosis ac [place] Head and neck cancer chronic Delayed surgical wound healing acute Nonhealing surgical wound ac [place] Soft tissue radionecrosis ac [place] 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 Delayed surgical wound healing acute Nonhealing surgical wound [place] Soft tissue radionecrosis ac [place] Head and neck cancer chronic Delayed surgical wound healing acute Nonhealing surgical wound ac [place] Soft tissue radionecrosis ac [place] Head and neck cancer chronic [facility] Work Phone: Evaluation note* Diagnosis Onset Date Resolution Status Delayed surgical wound healing acute Nonhealing surgical wound [place] Soft tissue radionecrosis ac [place] Head and neck cancer chronic Delayed surgical wound healing acute Nonhealing surgical wound [place] Soft tissue radionecrosis ac [place] 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 Delayed surgical wound healing acute Nonhealing surgical wound [place] Soft tissue radionecrosis ac [place] Head and neck cancer chronic Delayed surgical wound healing acute Nonhealing surgical wound [place] Soft tissue radionecrosis ac [place] Head and neck cancer chronic Delayed surgical wound healing acute Nonhealing surgical wound ac [place] Soft tissue radionecrosis ac [place] Head and neck cancer chronic [facility] Work Phone: Evaluation note* Diagnosis Onset Date Resolution Status Delayed surgical wound healing acute Nonhealing surgical wound ac [place] Soft tissue radionecrosis ac [place] 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 Lung nodules chronic [facility] Work Phone: Evaluation note* Diagnosis Acquired hypothyroidism- Primary Unspecified hypothyroidism Oropharyngeal dysphagia Dysphagia, oropharyngeal phase 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) Malignant neoplasm of mouth, unspecified site documented in this encounter [facility] Work Phone: Evaluation note* Diagnosis Onset Date Resolution Status Head and neck cancer chronic Lung nodules chronic 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 Esophageal dysphagia chronic [facility] Work Phone: Evaluation note* Diagnosis Onset Date Resolution Status 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 Esophageal dysphagia [facility] Work Phone: Evaluation note* Diagnosis Oropharyngeal dysphagia- Primary Dysphagia, oropharyngeal phase Sensorineural hearing loss (SNHL) of both ears Cancer of oral cavity (Multi) Malignant neoplasm of mouth, unspecified site 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) Adverse effect of radiation therapy, subsequent encounter Sensorineural hearing loss (SNHL) of both ears- Primary documented in this encounter [facility] Work Phone: Evaluation note* Diagnosis Acquired hypothyroidism- Primary Unspecified hypothyroidism Oropharyngeal dysphagia Dysphagia, oropharyngeal phase 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) Cancer of oral cavity (Multi) Malignant neoplasm of mouth, unspecified site Oropharyngeal dysphagia- Primary Dysphagia, oropharyngeal phase Sensorineural hearing loss (SNHL) of both ears Cancer of oral cavity (Multi) Malignant neoplasm of mouth, unspecified site 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) Adverse effect of radiation therapy, subsequent encounter Oropharyngeal dysphagia- Primary Dysphagia, oropharyngeal phase Sensorineural hearing loss (SNHL) of both ears Acquired hypothyroidism Unspecified hypothyroidism Cancer of oral cavity (Multi) Malignant neoplasm of mouth, unspecified site 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) Adverse effect of radiation therapy, subsequent encounter Tracheostomy dependence (Multi) Tracheostomy status Oropharyngeal dysphagia- Primary Dysphagia, oropharyngeal phase 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) Cancer of oral cavity (Multi) Malignant neoplasm of mouth, unspecified site Adverse effect of radiation therapy, subsequent encounter Open wound of neck, subsequent encounter Sensorineural hearing loss (SNHL) of both ears Tracheostomy dependence (Multi) Tracheostomy status Acquired hypothyroidism Unspecified hypothyroidism documented in this encounter [facility] Work Phone: Evaluation note* Diagnosis Acquired hypothyroidism- Primary Unspecified hypothyroidism Oropharyngeal dysphagia Dysphagia, oropharyngeal phase 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) Cancer of oral cavity (Multi) Malignant neoplasm of mouth, unspecified site Oropharyngeal dysphagia- Primary Dysphagia, oropharyngeal phase Sensorineural hearing loss (SNHL) of both ears Cancer of oral cavity (Multi) Malignant neoplasm of mouth, unspecified site 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) Adverse effect of radiation therapy, subsequent encounter Oropharyngeal dysphagia- Primary Dysphagia, oropharyngeal phase Sensorineural hearing loss (SNHL) of both ears Acquired hypothyroidism Unspecified hypothyroidism Cancer of oral cavity (Multi) Malignant neoplasm of mouth, unspecified site 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) Adverse effect of radiation therapy, subsequent encounter Tracheostomy dependence (Multi) Tracheostomy status documented in this encounter [facility] Work Phone: Evaluation note* Diagnosis Acquired hypothyroidism- Primary Unspecified hypothyroidism Oropharyngeal dysphagia Dysphagia, oropharyngeal phase 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 (Multi) Malignant neoplasm of mouth, unspecified site Oropharyngeal dysphagia- Primary Dysphagia, oropharyngeal phase Sensorineural hearing loss (SNHL) of both ears Cancer of oral cavity (Multi) Malignant neoplasm of mouth, unspecified site 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 Adverse effect of radiation therapy, subsequent encounter Oropharyngeal dysphagia- Primary Dysphagia, oropharyngeal phase Sensorineural hearing loss (SNHL) of both ears Acquired hypothyroidism Unspecified hypothyroidism Cancer of oral cavity (Multi) Malignant neoplasm of mouth, unspecified site 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 Adverse effect of radiation therapy, subsequent encounter Tracheostomy dependence (Multi) Tracheostomy status Oropharyngeal dysphagia- Primary Dysphagia, oropharyngeal phase 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 (Multi) Malignant neoplasm of mouth, unspecified site Adverse effect of radiation therapy, subsequent encounter Open wound of neck, subsequent encounter Sensorineural hearing loss (SNHL) of both ears Tracheostomy dependence (Multi) Tracheostomy status Acquired hypothyroidism Unspecified hypothyroidism Sensorineural hearing loss (SNHL) of both ears- Primary 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 (Multi) Malignant neoplasm of mouth, unspecified site Tracheostomy dependence (Multi) Tracheostomy status Acquired hypothyroidism Unspecified hypothyroidism Oropharyngeal dysphagia Dysphagia, oropharyngeal phase Adverse effect of radiation therapy, subsequent encounter Open wound of neck, subsequent encounter documented in this encounter [facility] Work Phone: History and physical note Author Elliott Akhtar [facility] September 03, 2023 2:00pm Note Date/Time September 03, 2023 2:00pm [facility] Medical Records Department [address] [place] [address] History & Physical Exam 09/03/23 1400 MR#: [id number] Acct: [id number] Name: MY JAMA Rep #:[id number] : 1960 63 From: Elliott Akhtar DO PCP: ERWIN PardoC Status:REG [facility] Location: [place] [address] History and Physical Date of Admission: 09/03/23 MY JAMA, is a 63 M who presents to the office today for WCC 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 Underwent radiation with concurrent carboplatin for head/neck cancer. At follow up it was noted he has dysphagia. ? Modified Barium 7. moderate oropharyngeal dysphagia, mild esophageal dysphasia. ? Modified Barium 9.. moderate-severe oropharyngeal phase dysphagia, puree texture. ? Modified Barium 11..23 severe oropharyngeal phase dysphagia, recommend puree texture. High risk for aspiration *BGI established 08.30.23 he has had a tracheostomy for the last two years. He has been having difficulty swallowing foods with history as above. Daughter is concerned regarding frequent pneumonia during the winter months. ROS Const Constitutional: No anorexia, fatigue, fever(s), weight change or sleep problems Eyes Eyes: No change in vision ENT ENT: No abnormal hearing, difficulty swallowing, mouth lesions, tongue swelling or throat swelling Resp Respiratory: No cough or shortness of breath Cardio Cardiology: No chest pain at rest, chest pain with exertion, shortness of breathor dyspnea on exertion Gastro GI: No difficulty swallowing Genitourinary Male: No difficulty urinating or burning urination Musc Musculoskeletal: No joint pain, joint swelling, muscle weakness or decreased muscle mass Skin Skin: No hair loss in leg, yellowing of the eye, itchy eyes, rash, skin ulcer orskin swelling Neuro Neurology: No abnormal hearing, abnormal movements, confusion, unsteady gait/balance or memory loss Psych Psychiatric: No anxiety, No confusion and No memory loss Endo Endocrine: No fatigue or weight change Aller/Imm Allergy/Immunologic: No itchy eyes, throat swelling or tongue swelling Mark/Lymp Hematologic/Lymphatic: No easy bleeding, easy bruising or enlarged lymph nodes Exam Const General: cooperative and comfortable Nutritional Appearance: average body habitus and well nourished HENMT Head: normal to inspection Ears: hearing grossly normal bilaterally Nose: external nose normal Face and sinus: normal facial exam Mouth: oral mucosae normal Throat: posterior oropharynx normal Eyes General: appearance normal, both eyes and all related structures Neck Neck: normal visual inspection Chest Chest palpation & inspection: normal inspection of the chest and normal palpation of entire chest wall Resp Effort & Inspection: normal respiratory effort Auscultation: Bilateral: Clear to Auscultation Cardio Palpation: normal PMI Rate: regular rate Rhythm: regular rhythm GI Inspection: normal to inspection Auscultation: normal bowel sounds Percussion: normal to percussion Palpation: no hepatosplenomegaly Skin General: no rashes or lesions noted Neuro General: patient alert Extrem General: normal to inspection Psych Affect: normal affect Quality Reporting Tobacco Screening ([facility] 138) Smoking Status: Former smoker Assessment and Plan Assessment and Plan (1) Esophageal dysphagia: Status: Chronic Plan: 62-year-old male with a diagnosis of 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 Patient is status post tonsillectomies and uveal excision yet no primary identified. Received concomitant chemoradiation January through March 2019 tolerated with expected but no excessive toxicities. He was in complete remission went on surveillance with no evidence to suggest cancer recurrence until August 2021. Indeterminate too small to further characterize lung nodules on initial staging chest CT of November 2018 remains stable for 2 years on imaging through February 2021. 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 Restaging did not suggest systemic disease. October 2021 he underwent radicalsurgery. Received adjuvant combined modality therapy with radiation and weekly carboplatin chemosensitization November?January. 11/07/2021: PEG tube placement, tracheostomy, composite resection of oral cavity,excision of skin and soft tissue, segmental mandibulectomy, right selective neckdissection and left neck exploration for vessels. Reconstruction was thigh free flap and had complex neck closure with split thickness skin graft. Trach was removed following surgery on 12/05/2021 with the trach re-inserted dueto difficulty breathing when lying flat. Pt has followed with OP ST during and after radiation treatment. Most recent MBSS 06/15/22 recommended moist puree textures / thin liquids with strict aspiration precautions and GI consult for dilation, very narrow and decreased opening/duration of upper esophageal sphincter. He will undergo an upper endoscopy to evaluate his upper GI tract. He was explained alternatives, risk, benefits including not withstanding bleeding, infection, sepsis, perforation, need for redo surgery. He will have an ASA of 3. I have examined the patient and the H&P has been reviewed. There are no clinical changes since date of exam. 09/03/23 1400 <Electronically signed by Elliott Akhtar DO> Cosigner Signature (if applicable): CC: YARI Gonzalez; Elliott Akhtar DO~ Signed [facility] Work Phone: History of Present illness Narrative* Mr. MY JAMA, is a 62 year old male here for a followup regarding his open anterior neck wound. Last seen 06/14. He is currently seeing the wound clinic at [place]. He still has his Shiley XLT in. He wears his cap on all day. He only uncaps the trach at night time when he lays flat. He has nothad his trach changed. * He has a history of [id number] oral cavity SCCa with chin involvement s/p triple, trach, PEG, composite resection, excision of skin and soft tissue, segmental mandibulectomy, right neck dissection, leftneck exploration for vessels, reconstruction with left ALT and left fibular free flap on 11/07/21. Patient completed adjuvant chemoradiation on 02/06/22. * History: * Dx1: [id number] left neck (unknown primary) 2018 * Dx2: [id number] SCCa of the oral cavity 2020 * 04/28/18: +odynophagia, EGD +distal esophagitis, biopsies +reflux * Late 11/11: First noticed left neck mass * 12/15/18: 1st evaluation, for enlarging left neck mass * 12/17/18: CT neck and chest with left pathologic lymphadenopathy measuring 1.8x1.8x2.9cm and second lymph node measuring 1.2x1.6cm. CT chest with small scattered pulmonary nodules largest RUL 5mm, recommend CT chest in 1yr * 12/22/18: US guided FNA of the left neck mass +SCCa with extensive necrosis, P16 negative. * 12/31/18: Seen by medical oncologist, recommended ENT & PET scan * 01/02/19: OSH ENT consult with left fixed lymphadenopathy, small cystic lesion noted on uvula, negative laryngoscopy * 01/05/19: PET scan with 2 hypermetabolic areas in the left neck (SUV 8.6 max), and increased FDG avidity in the left pharynx (SUV 3.4) measures 1.9cm * 01/30/19: Triple endoscopy with tonsillectomy and uvulectomy removal * 02/09/19: Started chemoradiation therapy * 03/23/19: Last chemotherapy * 03/25/19: Completed chemoradiation therapy * 09/12: Loose anterior mandibular teeth/dental extraction * 09/12: CT neck w/contrast enhancing mass involving the anterior oral cavity & symphysis with bone involvement, no lymphadenopathy * 09/12: Oral cavity biopsy at [facility] +SCCa * 10/14: PET FDG avid oral cavity mass w/bone involvement SUV12, no lymphadenopathy or distant metastasis * 11/07/21: S/p triple, trach, PEG, composite resection, excision of skin and soft tissue, segmental mandibulectomy, right neck dissection, left neck exploration for vessels, reconstruction with left ALT and left fibular free flap. Path + 6.5cm SCCa, 12/11 lymph nodes + metastasis. * 11/10/21: S/p left neck exploration and revision of ALT flap (release of arterial kinking) * 12/12: TB recommends radiation +/- chemotherapy * 11/29/21: Trach changed to #4 cuffless & capped, +cellulitis of chin and fibula on bactrim * 12/03/21: Decannulated, decreased erythema * 12/05/21: ED visit for SOB, 4-0 trach replaced * 12/12: Started chemoradiation therapy * 12/18: Trach open #4 * 12/29/21: Urgent add on - trach upsized to a #6 distal XLT * 02/06/22: Completed chemoradiation * 04/02/22: Left neck wound increased in size. Cultures obtained- + MRSA - recommend bactroban * 05/14: Seeing wound care for stable midline neck wound - doing serial debridements * 06/14: Integra placement without take * SH: * Tob: 1ppd/35 years. currently down to 2-3 cigs/day. * ETOH: beer. 12pk/week - but just cut down to a few a day * Here with daughter * By signing my name below, I, Kuldeep Braden, attest that this documentation has been prepared under the direction and in the presence of Dr. Rachel Brooks MD. * All medical record entries made by the Scribe were at my direction and personally dictated by me, Dr. Rachel Brooks. I have reviewed the chart and agree that the record accurately reflects my personal performance of the history, physical exam, discussion and plan. [id number] Work Phone: History of Present illness Narrative* Mr. MY JAMA, is a 62 year old male here for a trach change. Last seen 06/14. He continues to be followed at the [place] wound clinic. Continues with Shiley XLT, caps during day. Wound has continued to heal very slowly but is smaller. * He has a history of [id number] oral cavity SCCa with chin involvement s/p triple, trach, PEG, composite resection, excision of skin and soft tissue, segmental mandibulectomy, right neck dissection, leftneck exploration for vessels, reconstruction with left ALT and left fibular free flap on 11/07/21. Patient completed adjuvant chemoradiation on 02/06/22. * History: * Dx1: [id number] left neck (unknown primary) 2018 * Dx2: [id number] SCCa of the oral cavity 2020 * 04/28/18: +odynophagia, EGD +distal esophagitis, biopsies +reflux * Late 11/11: First noticed left neck mass * 12/15/18: 1st evaluation, for enlarging left neck mass * 12/17/18: CT neck and chest with left pathologic lymphadenopathy measuring 1.8x1.8x2.9cm and second lymph node measuring 1.2x1.6cm. CT chest with small scattered pulmonary nodules largest RUL 5mm, recommend CT chest in 1yr * 12/22/18: US guided FNA of the left neck mass +SCCa with extensive necrosis, P16 negative. * 12/31/18: Seen by medical oncologist, recommended ENT & PET scan * 01/02/19: OSH ENT consult with left fixed lymphadenopathy, small cystic lesion noted on uvula, negative laryngoscopy * 01/05/19: PET scan with 2 hypermetabolic areas in the left neck (SUV 8.6 max), and increased FDG avidity in the left pharynx (SUV 3.4) measures 1.9cm * 01/30/19: Triple endoscopy with tonsillectomy and uvulectomy removal * 02/09/19: Started chemoradiation therapy * 03/23/19: Last chemotherapy * 03/25/19: Completed chemoradiation therapy * 09/12: Loose anterior mandibular teeth/dental extraction * 09/12: CT neck w/contrast enhancing mass involving the anterior oral cavity & symphysis with bone involvement, no lymphadenopathy * 09/12: Oral cavity biopsy at [facility] +SCCa * 10/14: PET FDG avid oral cavity mass w/bone involvement SUV12, no lymphadenopathy or distant metastasis * 11/07/21: S/p triple, trach, PEG, composite resection, excision of skin and soft tissue, segmental mandibulectomy, right neck dissection, left neck exploration for vessels, reconstruction with left ALT and left fibular free flap. Path + 6.5cm SCCa, 12/11 lymph nodes + metastasis. * 11/10/21: S/p left neck exploration and revision of ALT flap (release of arterial kinking) * 12/12: TB recommends radiation +/- chemotherapy * 11/29/21: Trach changed to #4 cuffless & capped, +cellulitis of chin and fibula on bactrim * 12/03/21: Decannulated, decreased erythema * 12/05/21: ED visit for SOB, 4-0 trach replaced * 12/12: Started chemoradiation therapy * 12/18: Trach open #4 * 12/29/21: Urgent add on - trach upsized to a #6 distal XLT * 02/06/22: Completed chemoradiation * 04/02/22: Left neck wound increased in size. Cultures obtained- + MRSA - recommend bactroban * 05/14: Seeing wound care for stable midline neck wound - doing serial debridements * 06/14: Integra placement without take * SH: * Tob: 1ppd/35 years. currently down to 2-3 cigs/day. * ETOH: beer. 12pk/week - but just cut down to a few a day * Here with daughter * By signing my name below, I, Koki Schneider Scribe, attest that this documentation has been prepared under the direction and in the presence of Dr. Rachel Brooks MD. * All medical record entries made by the Scribe were at my direction and personally dictated by me, Dr. Rachel Brooks. I have reviewed the chart and agree that the record accurately reflects my personal performance of the history, physical exam, discussion and plan. [id number] Work Phone: History of Present illness Narrative* Mr. MY JAMA, is a 62 year old male here for a trach change. Last seen 06/14. He continues to be followed at the [place] wound clinic. Continues with Amber SCOTT, caps during day. Wound has continued to heal very slowly but is smaller. * He has a history of [id number] oral cavity SCCa with chin involvement s/p triple, trach, PEG, composite resection, excision of skin and soft tissue, segmental mandibulectomy, right neck dissection, leftneck exploration for vessels, reconstruction with left ALT and left fibular free flap on 11/07/21. Patient completed adjuvant chemoradiation on 02/06/22. * History: * Dx1: [id number] left neck (unknown primary) 2018 * Dx2: [id number] SCCa of the oral cavity 2020 * 04/28/18: +odynophagia, EGD +distal esophagitis, biopsies +reflux * Late 11/11: First noticed left neck mass * 12/15/18: 1st evaluation, for enlarging left neck mass * 12/17/18: CT neck and chest with left pathologic lymphadenopathy measuring 1.8x1.8x2.9cm and second lymph node measuring 1.2x1.6cm. CT chest with small scattered pulmonary nodules largest RUL 5mm, recommend CT chest in 1yr * 12/22/18: US guided FNA of the left neck mass +SCCa with extensive necrosis, P16 negative. * 12/31/18: Seen by medical oncologist, recommended ENT & PET scan * 01/02/19: OSH ENT consult with left fixed lymphadenopathy, small cystic lesion noted on uvula, negative laryngoscopy * 01/05/19: PET scan with 2 hypermetabolic areas in the left neck (SUV 8.6 max), and increased FDG avidity in the left pharynx (SUV 3.4) measures 1.9cm * 01/30/19: Triple endoscopy with tonsillectomy and uvulectomy removal * 02/09/19: Started chemoradiation therapy * 03/23/19: Last chemotherapy * 03/25/19: Completed chemoradiation therapy * 09/12: Loose anterior mandibular teeth/dental extraction * 09/12: CT neck w/contrast enhancing mass involving the anterior oral cavity & symphysis with bone involvement, no lymphadenopathy * 09/12: Oral cavity biopsy at [facility] +SCCa * 10/14: PET FDG avid oral cavity mass w/bone involvement SUV12, no lymphadenopathy or distant metastasis * 11/07/21: S/p triple, trach, PEG, composite resection, excision of skin and soft tissue, segmental mandibulectomy, right neck dissection, left neck exploration for vessels, reconstruction with left ALT and left fibular free flap. Path + 6.5cm SCCa, 12/11 lymph nodes + metastasis. * 11/10/21: S/p left neck exploration and revision of ALT flap (release of arterial kinking) * 12/12: TB recommends radiation +/- chemotherapy * 11/29/21: Trach changed to #4 cuffless & capped, +cellulitis of chin and fibula on bactrim * 12/03/21: Decannulated, decreased erythema * 12/05/21: ED visit for SOB, 4-0 trach replaced * 12/12: Started chemoradiation therapy * 12/18: Trach open #4 * 12/29/21: Urgent add on - trach upsized to a #6 distal XLT * 02/06/22: Completed chemoradiation * 04/02/22: Left neck wound increased in size. Cultures obtained- + MRSA - recommend bactroban * 05/14: Seeing wound care for stable midline neck wound - doing serial debridements * 06/14: Integra placement without take * SH: * Tob: 1ppd/35 years. currently down to 2-3 cigs/day. * ETOH: beer. 12pk/week - but just cut down to a few a day * Here with daughter * By signing my name below, I, Koki Schneider Scribe, attest that this documentation has been prepared under the direction and in the presence of Dr. Rachel Brooks MD. * All medical record entries made by the Scribe were at my direction and personally dictated by me, Dr. Rachel Brooks. I have reviewed the chart and agree that the record accurately reflects my personal performance of the history, physical exam, discussion and plan. [facility] Work Phone: History of Present illness NarrativeThis 62-year-old gentleman is being seen today for an evaluation into difficulties with hearing. 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 He is followed by Dr. Brooks here at as well as other doctors in his home in [place].He has had routine follow-ups on his cancer with no recurrence to date. He has had progressive hearing loss that may have been influenced by chemotherapy. He has completed all of his therapy at this point and is now on cancer surveillance exams. He has had no ear pain or drainage. Unfortunately there are no old hearing test to review. [facility] Work Phone: Hospital Discharge instructions* Activity:activity as tolerated. May shower. May not drive while taking narcotics. No pushing, pulling, or lifting objects greater than 10 pounds for 2 week(s). Weight- bearing Instructions: full weight bearing. Other activity instructions: Slowly increase your activity each day. No strenuous or vigorous exercising until cleared by your surgeon. * Additional Orders:Weight: weightAdditional Instructions: Call the office for signs of infection: sustained elevated temperature greater than 100.4 degrees, increased incisional pain, increased redness or swelling, tenderness to touch, or drainage along incision.Also call the office for persistent nausea or vomiting. * Call Provider If:Breathing faster than normal. Breathing harder than normal or having retractions. Fever of 100.4 F (38 C) or higher. Chills. Drinking less than normal. Urinating less than normal, over 1 day. Acting very sleepy and difficult to awaken. Vomiting (throwing up) and not able to eat or drink for 12 hours. Any new concerning symptoms. * Care Recommendation:I recommend that INPATIENT care is required at: SkilledEstimated Stay: Convalescent stay < 30 daysPrognosis: GoodRehab Potential/Function: Improve * Therapy Orders:Occupational Therapy Orders: Eval and Treat ([facility]), dailyPhysical Therapy Orders: Eval and Treat ([facility]), dailySpeech Therapy Orders: Eval and Treat ([facility]), 1-3 times/week, NO ORAL LIQUIDS OR FOODS UNTIL CLEARED BY SURGICAL ATTENDING * Provider Follow Up:Physician To Follow at Skilled/Rehab: Attending Physician at Skilled/Rehab * Follow Up Appointment 1:Physician/Dept/Service: Dr. Rachel Machuca for Referral: POVScheduled Date/Time: 29-Nov-2021 13:15Location: [facility] 1st Floor Desk BPhone Number:[phone] with questionsComments: Please arrive 10-15 minutes early, bring photo ID, insurance information, and current list of medications. If unable to keep this appointment, please call to cancel at least 24 hours prior to appointment. * Safety:Siderails: noRestraints: noSitter: no * Incision 1:Location: anterior neck with sutures, chin flap with sutures, floor of mouth flap with sutures, L thigh ALT with sutures, L calf donor- 0 form/telfa/kerlex/ bear wrapped * Tracheostomy:Standard Trach Care: Cleanse the tracheostomy site with 1:1 mixture of hydrogen peroxide and normal saline to remove crust twice daily and as needed. Remove and cleanse the inner cannulawith 1:1 mixture of hydrogen peroxide and normal saline to remove mucus build up and rinse well with normal saline twice daily and as needed. Suction trach every 4-6 hours and/or as needed to clear secreations. May instill 2-3mLs of normal saline lavage as needed for thick secretions. Make sure to bring trach kit and obturator with you to all appointments in case of dislodgement or capping trials. Trach ties can be changed as needed. Humidified room air at all times. Trach Size (#) and Type: 6UN75R (6.0) cuffless Shiley. Suction Catheter Size/Type 14 faroese. Date Trach Inserted/Changed: 11/07/21;11/12/21. * PEG Tube Care:PEG Tube Care: Cleanse with 1:1 mixture of hydrogen peroxide and normal saline to remove any crust. Spin bumper daily. If bumper does not spin freely notify MD. Monitor site for signs & symptoms of infection which include redness, warmth, increased tenderness and purulent drainage. * Incision Care:Facial/Neck Incision Care: Cleanse all facial/neck incisions twice daily with baby shampoo or mild soap and water. Apply petroleum jelly/vaseline to incision line twice daily until incision has healed. Intra- oral Incision Care: To care for your intra-oral incisions, please swish and sp it with 15 mLs of peridex solution 3-4 times daily until follow-up. Use swabs to perform oral care. * Flaps:Free Flap Donor Site left fibula & left ALT. Fibula Care: Clean free flap donor site daily with baby shampoo or mild soap and water, pat dry, no scrubbing. Dressing to free flap donor site is to be changed daily. Apply xeroform then cover with non-stick telfa. Wrap with kerlix to hold in place. Wrap with an bear wrap. Anterolateral Thigh Care: Cleanse anterolateral thigh incision twice daily with baby shampoo or mild soap and water. Apply petroleum jelly/vaseline to incision line twicedaily until incision has healed. * Skilled Facility Instructions:FOR PATIENTS GOING TO SHELTER FACILITY: Please make sure thispatient has all suctioning, dressing, trach care and tube feeding supplies in their home prior to leaving the [facility] facility[facility] Name Dates Details Patient Instructions Indication:B12 nutritional deficiency Start:02-Dec-2020 Instruction Type:Provider Instructions for Treatment How to Access Health Informa tion Online using Patient Portal and 3rd Republican Apps Indication:Smoker Start:02-Dec-2020 Instruction Type:Patient Education Patient Instructions Indication:Hypothyroid Start:29-Aug-2020 Instruction Type:Provider Instructions for Treatment How to access health informa tion online Indication:BMI 23.0-23.9, adult Start:29-Aug-2020 Instruction Type:Patient Education How to access health informa tion online - Detail Indication:BMI 23.0-23.9, adult Start:29-Aug-2020 Instruction Type:Patient Education Patient Instructions Indication:BMI 23.0-23.9, adult Start:29-Aug-2020 Instruction Type:Provider Instructions for Treatment How to access health informa tion online Indication:Smoker Start:29-Jun-2020 Instruction Type:Patient Education How to access health informa tion online - Detail Indication:Smoker Start:29-Jun-2020 Instruction Type:Patient Education INSTRUCTIONS1 Indication:Smoker Start:29-Jun-2020 Instruction Type:Provider Instructions for Treatment How to access health informa tion online Indication:Smoker Start:14-Apr-2020 Instruction Type:Patient Education How to access health informa tion online - Detail Indication:Smoker Start:14-Apr-2020 Instruction Type:Patient Education Patient Instructions Indication:Smoker Start:14-Apr-2020 Instruction Type:Provider Instructions for Treatment How to access health informa tion online Indication:Smoker Start:14-Dec-2019 Instruction Type:Patient Education How to access health informa tion online - Detail Indication:Smoker Start:14-Dec-2019 Instruction Type:Patient Education Patient Instructions Indication:Smoker Start:14-Dec-2019 Instruction Type:Provider Instructions for Treatment How to access health informa tion online Indication:Smoker Start:02-Jan-2019 Instruction Type:Patient Education How to access health informa tion online - Detail Indication:Smoker Start:02-Jan-2019 Instruction Type:Patient Education Patient Instructions Indication:Smoker Start:02-Jan-2019 Instruction Type:Provider Instructions for Treatment How to access health informa tion online Indication:BMI 23.0-23.9, adult Start:15-Dec-2018 Instruction Type:Patient Education How to access health informa tion online - Detail Indication:BMI 23.0-23.9, adult Start:15-Dec-2018 Instruction Type:Patient Education Patient Instructions Indication:BMI 23.0-23.9, adult Start:15-Dec-2018 Instruction Type:Provider Instructions for Treatment [facility] Work Phone: Instructions* Name Dates Details Patient Instructions Indication:Dry mouth Start:13-Mar-2021 Instruction Type:Provider Instructions for Treatment How to Access Health Informa tion Online using Patient Portal and 3rd Republican Apps Indication:Dry mouth Start:13-Mar-2021 Instruction Type:Patient Education Patient Instructions Indication:B12 nutritional deficiency Start:02-Dec-2020 Instruction Type:Provider Instructions for Treatment How to Access Health Informa tion Online using Patient Portal and 3rd Republican Apps Indication:Smoker Start:02-Dec-2020 Instruction Type:Patient Education Patient Instructions Indication:Hypothyroid Start:29-Aug-2020 Instruction Type:Provider Instructions for Treatment How to access health informa tion online Indication:BMI 23.0-23.9, adult Start:29-Aug-2020 Instruction Type:Patient Education How to access health informa tion online - Detail Indication:BMI 23.0-23.9, adult Start:29-Aug-2020 Instruction Type:Patient Education Patient Instructions Indication:BMI 23.0-23.9, adult Start:29-Aug-2020 Instruction Type:Provider Instructions for Treatment How to access health informa tion online Indication:Smoker Start:29-Jun-2020 Instruction Type:Patient Education How to access health informa tion online - Detail Indication:Smoker Start:29-Jun-2020 Instruction Type:Patient Education INSTRUCTIONS1 Indication:Smoker Start:29-Jun-2020 Instruction Type:Provider Instructions for Treatment How to access health informa tion online Indication:Smoker Start:14-Apr-2020 Instruction Type:Patient Education How to access health informa tion online - Detail Indication:Smoker Start:14-Apr-2020 Instruction Type:Patient Education Patient Instructions Indication:Smoker Start:14-Apr-2020 Instruction Type:Provider Instructions for Treatment How to access health informa tion online Indication:Smoker Start:14-Dec-2019 Instruction Type:Patient Education How to access health informa tion online - Detail Indication:Smoker Start:14-Dec-2019 Instruction Type:Patient Education Patient Instructions Indication:Smoker Start:14-Dec-2019 Instruction Type:Provider Instructions for Treatment How to access health informa tion online Indication:Smoker Start:02-Jan-2019 Instruction Type:Patient Education How to access health informa tion online - Detail Indication:Smoker Start:02-Jan-2019 Instruction Type:Patient Education Patient Instructions Indication:Smoker Start:02-Jan-2019 Instruction Type:Provider Instructions for Treatment How to access health informa tion online Indication:BMI 23.0-23.9, adult Start:15-Dec-2018 Instruction Type:Patient Education How to access health informa tion online - Detail Indication:BMI 23.0-23.9, adult Start:15-Dec-2018 Instruction Type:Patient Education Patient Instructions Indication:BMI 23.0-23.9, adult Start:15-Dec-2018 Instruction Type:Provider Instructions for Treatment [facility]; [facility] Work Phone: Instructions* Name Dates Details Patient Instructions Indication:Dry mouth Start:13-Mar-2021 Instruction Type:Provider Instructions for Treatment How to Access Health Informa tion Online using Patient Portal and 3rd [employer] Apps Indication:Dry mouth Start:13-Mar-2021 Instruction Type:Patient Education Patient Instructions Indication:B12 nutritional deficiency Start:02-Dec-2020 Instruction Type:Provider Instructions for Treatment How to Access Health Informa tion Online using Patient Portal and 3rd Republican Apps Indication:Smoker Start:02-Dec-2020 Instruction Type:Patient Education Patient Instructions Indication:Hypothyroid Start:29-Aug-2020 Instruction Type:Provider Instructions for Treatment How to access health informa tion online Indication:BMI 23.0-23.9, adult Start:29-Aug-2020 Instruction Type:Patient Education How to access health informa tion online - Detail Indication:BMI 23.0-23.9, adult Start:29-Aug-2020 Instruction Type:Patient Education Patient Instructions Indication:BMI 23.0-23.9, adult Start:29-Aug-2020 Instruction Type:Provider Instructions for Treatment How to access health informa tion online Indication:Smoker Start:29-Jun-2020 Instruction Type:Patient Education How to access health informa tion online - Detail Indication:Smoker Start:29-Jun-2020 Instruction Type:Patient Education INSTRUCTIONS1 Indication:Smoker Start:29-Jun-2020 Instruction Type:Provider Instructions for Treatment How to access health informa tion online Indication:Smoker Start:14-Apr-2020 Instruction Type:Patient Education How to access health informa tion online - Detail Indication:Smoker Start:14-Apr-2020 Instruction Type:Patient Education Patient Instructions Indication:Smoker Start:14-Apr-2020 Instruction Type:Provider Instructions for Treatment How to access health informa tion online Indication:Smoker Start:14-Dec-2019 Instruction Type:Patient Education How to access health informa tion online - Detail Indication:Smoker Start:14-Dec-2019 Instruction Type:Patient Education Patient Instructions Indication:Smoker Start:14-Dec-2019 Instruction Type:Provider Instructions for Treatment How to access health informa tion online Indication:Smoker Start:02-Jan-2019 Instruction Type:Patient Education How to access health informa tion online - Detail Indication:Smoker Start:02-Jan-2019 Instruction Type:Patient Education Patient Instructions Indication:Smoker Start:02-Jan-2019 Instruction Type:Provider Instructions for Treatment How to access health informa tion online Indication:BMI 23.0-23.9, adult Start:15-Dec-2018 Instruction Type:Patient Education How to access health informa tion online - Detail Indication:BMI 23.0-23.9, adult Start:15-Dec-2018 Instruction Type:Patient Education Patient Instructions Indication:BMI 23.0-23.9, adult Start:15-Dec-2018 Instruction Type:Provider Instructions for Treatment [facility]; [facility] Work Phone: Instructions* Name Dates Details Patient Instructions Indication:Dry mouth Start:13-Mar-2021 Instruction Type:Provider Instructions for Treatment How to Access Health Informa tion Online using Patient Portal and 3rd Republican Apps Indication:Dry mouth Start:13-Mar-2021 Instruction Type:Patient Education Patient Instructions Indication:B12 nutritional deficiency Start:02-Dec-2020 Instruction Type:Provider Instructions for Treatment How to Access Health Informa tion Online using Patient Portal and 3rd Republican Apps Indication:Smoker Start:02-Dec-2020 Instruction Type:Patient Education Patient Instructions Indication:Hypothyroid Start:29-Aug-2020 Instruction Type:Provider Instructions for Treatment How to access health informa tion online Indication:BMI 23.0-23.9, adult Start:29-Aug-2020 Instruction Type:Patient Education How to access health informa tion online - Detail Indication:BMI 23.0-23.9, adult Start:29-Aug-2020 Instruction Type:Patient Education Patient Instructions Indication:BMI 23.0-23.9, adult Start:29-Aug-2020 Instruction Type:Provider Instructions for Treatment How to access health informa tion online Indication:Smoker Start:29-Jun-2020 Instruction Type:Patient Education How to access health informa tion online - Detail Indication:Smoker Start:29-Jun-2020 Instruction Type:Patient Education INSTRUCTIONS1 Indication:Smoker Start:29-Jun-2020 Instruction Type:Provider Instructions for Treatment How to access health informa tion online Indication:Smoker Start:14-Apr-2020 Instruction Type:Patient Education How to access health informa tion online - Detail Indication:Smoker Start:14-Apr-2020 Instruction Type:Patient Education Patient Instructions Indication:Smoker Start:14-Apr-2020 Instruction Type:Provider Instructions for Treatment How to access health informa tion online Indication:Smoker Start:14-Dec-2019 Instruction Type:Patient Education How to access health informa tion online - Detail Indication:Smoker Start:14-Dec-2019 Instruction Type:Patient Education Patient Instructions Indication:Smoker Start:14-Dec-2019 Instruction Type:Provider Instructions for Treatment How to access health informa tion online Indication:Smoker Start:02-Jan-2019 Instruction Type:Patient Education How to access health informa tion online - Detail Indication:Smoker Start:02-Jan-2019 Instruction Type:Patient Education Patient Instructions Indication:Smoker Start:02-Jan-2019 Instruction Type:Provider Instructions for Treatment How to access health informa tion online Indication:BMI 23.0-23.9, adult Start:15-Dec-2018 Instruction Type:Patient Education How to access health informa tion online - Detail Indication:BMI 23.0-23.9, adult Start:15-Dec-2018 Instruction Type:Patient Education Patient Instructions Indication:BMI 23.0-23.9, adult Start:15-Dec-2018 Instruction Type:Provider Instructions for Treatment [facility]; [facility] Work Phone: Instructions* Name Dates Details Patient Instructions Indication:Smoker Start:15-Aug-2021 Instruction Type:Provider Instructions for Treatment How to Access Health Informa tion Online using Patient Portal and 3rd Republican Apps Indication:Smoker Start:15-Aug-2021 Instruction Type:Patient Education Patient Instructions Indication:BMI 20.0-20.9, adult Start:26-Jul-2021 Instruction Type:Provider Instructions for Treatment How to Access Health Informa tion Online using Patient Portal and 3rd Republican Apps Indication:BMI 20.0-20.9, adult Start:26-Jul-2021 Instruction Type:Patient Education Patient Instructions Indication:Dry mouth Start:13-Mar-2021 Instruction Type:Provider Instructions for Treatment How to Access Health Informa tion Online using Patient Portal and 3rd Republican Apps Indication:Dry mouth Start:13-Mar-2021 Instruction Type:Patient Education Patient Instructions Indication:B12 nutritional deficiency Start:02-Dec-2020 Instruction Type:Provider Instructions for Treatment How to Access Health Informa tion Online using Patient Portal and 3rd Republican Apps Indication:Smoker Start:02-Dec-2020 Instruction Type:Patient Education Patient Instructions Indication:Hypothyroid Start:29-Aug-2020 Instruction Type:Provider Instructions for Treatment How to access health informa tion online Indication:BMI 23.0-23.9, adult Start:29-Aug-2020 Instruction Type:Patient Education How to access health informa tion online - Detail Indication:BMI 23.0-23.9, adult Start:29-Aug-2020 Instruction Type:Patient Education Patient Instructions Indication:BMI 23.0-23.9, adult Start:29-Aug-2020 Instruction Type:Provider Instructions for Treatment How to access health informa tion online Indication:Smoker Start:29-Jun-2020 Instruction Type:Patient Education How to access health informa tion online - Detail Indication:Smoker Start:29-Jun-2020 Instruction Type:Patient Education INSTRUCTIONS1 Indication:Smoker Start:29-Jun-2020 Instruction Type:Provider Instructions for Treatment How to access health informa tion online Indication:Smoker Start:14-Apr-2020 Instruction Type:Patient Education How to access health informa tion online - Detail Indication:Smoker Start:14-Apr-2020 Instruction Type:Patient Education Patient Instructions Indication:Smoker Start:14-Apr-2020 Instruction Type:Provider Instructions for Treatment How to access health informa tion online Indication:Smoker Start:14-Dec-2019 Instruction Type:Patient Education How to access health informa tion online - Detail Indication:Smoker Start:14-Dec-2019 Instruction Type:Patient Education Patient Instructions Indication:Smoker Start:14-Dec-2019 Instruction Type:Provider Instructions for Treatment How to access health informa tion online Indication:Smoker Start:02-Jan-2019 Instruction Type:Patient Education How to access health informa tion online - Detail Indication:Smoker Start:02-Jan-2019 Instruction Type:Patient Education Patient Instructions Indication:Smoker Start:02-Jan-2019 Instruction Type:Provider Instructions for Treatment How to access health informa tion online Indication:BMI 23.0-23.9, adult Start:15-Dec-2018 Instruction Type:Patient Education How to access health informa tion online - Detail Indication:BMI 23.0-23.9, adult Start:15-Dec-2018 Instruction Type:Patient Education Patient Instructions Indication:BMI 23.0-23.9, adult Start:15-Dec-2018 Instruction Type:Provider Instructions for Treatment [facility]; [facility] Work Phone: Instructions* Name Dates Details Patient Instructions Indication:Smoker Start:15-Aug-2021 Instruction Type:Provider Instructions for Treatment How to Access Health Informa tion Online using Patient Portal and 3rd [employer] Apps Indication:Smoker Start:15-Aug-2021 Instruction Type:Patient Education Patient Instructions Indication:BMI 20.0-20.9, adult Start:26-Jul-2021 Instruction Type:Provider Instructions for Treatment How to Access Health Informa tion Online using Patient Portal and 3rd [employer] Apps Indication:BMI 20.0-20.9, adult Start:26-Jul-2021 Instruction Type:Patient Education Patient Instructions Indication:Dry mouth Start:13-Mar-2021 Instruction Type:Provider Instructions for Treatment How to Access Health Informa tion Online using Patient Portal and 3rd Republican Apps Indication:Dry mouth Start:13-Mar-2021 Instruction Type:Patient Education Patient Instructions Indication:B12 nutritional deficiency Start:02-Dec-2020 Instruction Type:Provider Instructions for Treatment How to Access Health Informa tion Online using Patient Portal and 3rd [employer] Apps Indication:Smoker Start:02-Dec-2020 Instruction Type:Patient Education Patient Instructions Indication:Hypothyroid Start:29-Aug-2020 Instruction Type:Provider Instructions for Treatment How to access health informa tion online Indication:BMI 23.0-23.9, adult Start:29-Aug-2020 Instruction Type:Patient Education How to access health informa tion online - Detail Indication:BMI 23.0-23.9, adult Start:29-Aug-2020 Instruction Type:Patient Education Patient Instructions Indication:BMI 23.0-23.9, adult Start:29-Aug-2020 Instruction Type:Provider Instructions for Treatment How to access health informa tion online Indication:Smoker Start:29-Jun-2020 Instruction Type:Patient Education How to access health informa tion online - Detail Indication:Smoker Start:29-Jun-2020 Instruction Type:Patient Education INSTRUCTIONS1 Indication:Smoker Start:29-Jun-2020 Instruction Type:Provider Instructions for Treatment How to access health informa tion online Indication:Smoker Start:14-Apr-2020 Instruction Type:Patient Education How to access health informa tion online - Detail Indication:Smoker Start:14-Apr-2020 Instruction Type:Patient Education Patient Instructions Indication:Smoker Start:14-Apr-2020 Instruction Type:Provider Instructions for Treatment How to access health informa tion online Indication:Smoker Start:14-Dec-2019 Instruction Type:Patient Education How to access health informa tion online - Detail Indication:Smoker Start:14-Dec-2019 Instruction Type:Patient Education Patient Instructions Indication:Smoker Start:14-Dec-2019 Instruction Type:Provider Instructions for Treatment How to access health informa tion online Indication:Smoker Start:02-Jan-2019 Instruction Type:Patient Education How to access health informa tion online - Detail Indication:Smoker Start:02-Jan-2019 Instruction Type:Patient Education Patient Instructions Indication:Smoker Start:02-Jan-2019 Instruction Type:Provider Instructions for Treatment How to access health informa tion online Indication:BMI 23.0-23.9, adult Start:15-Dec-2018 Instruction Type:Patient Education How to access health informa tion online - Detail Indication:BMI 23.0-23.9, adult Start:15-Dec-2018 Instruction Type:Patient Education Patient Instructions Indication:BMI 23.0-23.9, adult Start:15-Dec-2018 Instruction Type:Provider Instructions for Treatment [facility]; [facility] Work Phone: Instructions* Name Dates Details Patient Instructions Indication:Hypothyroid Start:15-Dec-2021 Instruction Type:Provider Instructions for Treatment How to Access Health Informa tion Online using Patient Portal and [employer]rd [employer] Apps Indication:Hypothyroid Start:15-Dec-2021 Instruction Type:Patient Education Patient Instructions Indication:Smoker Start:15-Aug-2021 Instruction Type:Provider Instructions for Treatment How to Access Health Informa tion Online using Patient Portal and [employer] Apps Indication:Smoker Start:15-Aug-2021 Instruction Type:Patient Education Patient Instructions Indication:BMI 20.0-20.9, adult Start:26-Jul-2021 Instruction Type:Provider Instructions for Treatment How to Access Health Informa tion Online using Patient Portal and [employer]rd [employer] Apps Indication:BMI 20.0-20.9, adult Start:26-Jul-2021 Instruction Type:Patient Education Patient Instructions Indication:Dry mouth Start:13-Mar-2021 Instruction Type:Provider Instructions for Treatment How to Access Health Informa tion Online using Patient Portal and [employer]rd [employer] Apps Indication:Dry mouth Start:13-Mar-2021 Instruction Type:Patient Education Patient Instructions Indication:B12 nutritional deficiency Start:02-Dec-2020 Instruction Type:Provider Instructions for Treatment How to Access Health Informa tion Online using Patient Portal and [employer]rd [employer] Apps Indication:Smoker Start:02-Dec-2020 Instruction Type:Patient Education Patient Instructions Indication:Hypothyroid Start:29-Aug-2020 Instruction Type:Provider Instructions for Treatment How to access health informa tion online Indication:BMI 23.0-23.9, adult Start:29-Aug-2020 Instruction Type:Patient Education How to access health informa tion online - Detail Indication:BMI 23.0-23.9, adult Start:29-Aug-2020 Instruction Type:Patient Education Patient Instructions Indication:BMI 23.0-23.9, adult Start:29-Aug-2020 Instruction Type:Provider Instructions for Treatment How to access health informa tion online Indication:Smoker Start:29-Jun-2020 Instruction Type:Patient Education How to access health informa tion online - Detail Indication:Smoker Start:29-Jun-2020 Instruction Type:Patient Education INSTRUCTIONS1 Indication:Smoker Start:29-Jun-2020 Instruction Type:Provider Instructions for Treatment How to access health informa tion online Indication:Smoker Start:14-Apr-2020 Instruction Type:Patient Education How to access health informa tion online - Detail Indication:Smoker Start:14-Apr-2020 Instruction Type:Patient Education Patient Instructions Indication:Smoker Start:14-Apr-2020 Instruction Type:Provider Instructions for Treatment How to access health informa tion online Indication:Smoker Start:14-Dec-2019 Instruction Type:Patient Education How to access health informa tion online - Detail Indication:Smoker Start:14-Dec-2019 Instruction Type:Patient Education Patient Instructions Indication:Smoker Start:14-Dec-2019 Instruction Type:Provider Instructions for Treatment How to access health informa tion online Indication:Smoker Start:02-Jan-2019 Instruction Type:Patient Education How to access health informa tion online - Detail Indication:Smoker Start:02-Jan-2019 Instruction Type:Patient Education Patient Instructions Indication:Smoker Start:02-Jan-2019 Instruction Type:Provider Instructions for Treatment How to access health informa tion online Indication:BMI 23.0-23.9, adult Start:15-Dec-2018 Instruction Type:Patient Education How to access health informa tion online - Detail Indication:BMI 23.0-23.9, adult Start:15-Dec-2018 Instruction Type:Patient Education Patient Instructions Indication:BMI 23.0-23.9, adult Start:15-Dec-2018 Instruction Type:Provider Instructions for Treatment [facility]; [facility] Work Phone: Instructions* Name Dates Details Patient Instructions Indication:BMI less than 19,adult Start:15-Feb-2022 Instruction Type:Provider Instructions for Treatment How to Access Health Informa tion Online using Patient Portal and [employer] Apps Indication:BMI less than 19,adult Start:15-Feb-2022 Instruction Type:Patient Education Patient Instructions Indication:Hypothyroid Start:15-Dec-2021 Instruction Type:Provider Instructions for Treatment How to Access Health Informa tion Online using Patient Portal and [employer] Apps Indication:Hypothyroid Start:15-Dec-2021 Instruction Type:Patient Education Patient Instructions Indication:Smoker Start:15-Aug-2021 Instruction Type:Provider Instructions for Treatment How to Access Health Informa tion Online using Patient Portal and [employer] Apps Indication:Smoker Start:15-Aug-2021 Instruction Type:Patient Education Patient Instructions Indication:BMI 20.0-20.9, adult Start:26-Jul-2021 Instruction Type:Provider Instructions for Treatment How to Access Health Informa tion Online using Patient Portal and [employer] Apps Indication:BMI 20.0-20.9, adult Start:26-Jul-2021 Instruction Type:Patient Education Patient Instructions Indication:Dry mouth Start:13-Mar-2021 Instruction Type:Provider Instructions for Treatment How to Access Health Informa tion Online using Patient Portal and [employer] Apps Indication:Dry mouth Start:13-Mar-2021 Instruction Type:Patient Education Patient Instructions Indication:B12 nutritional deficiency Start:02-Dec-2020 Instruction Type:Provider Instructions for Treatment How to Access Health Informa tion Online using Patient Portal and [employer] Apps Indication:Smoker Start:02-Dec-2020 Instruction Type:Patient Education Patient Instructions Indication:Hypothyroid Start:29-Aug-2020 Instruction Type:Provider Instructions for Treatment How to access health informa tion online Indication:BMI 23.0-23.9, adult Start:29-Aug-2020 Instruction Type:Patient Education How to access health informa tion online - Detail Indication:BMI 23.0-23.9, adult Start:29-Aug-2020 Instruction Type:Patient Education Patient Instructions Indication:BMI 23.0-23.9, adult Start:29-Aug-2020 Instruction Type:Provider Instructions for Treatment How to access health informa tion online Indication:Smoker Start:29-Jun-2020 Instruction Type:Patient Education How to access health informa tion online - Detail Indication:Smoker Start:29-Jun-2020 Instruction Type:Patient Education INSTRUCTIONS1 Indication:Smoker Start:29-Jun-2020 Instruction Type:Provider Instructions for Treatment How to access health informa tion online Indication:Smoker Start:14-Apr-2020 Instruction Type:Patient Education How to access health informa tion online - Detail Indication:Smoker Start:14-Apr-2020 Instruction Type:Patient Education Patient Instructions Indication:Smoker Start:14-Apr-2020 Instruction Type:Provider Instructions for Treatment How to access health informa tion online Indication:Smoker Start:14-Dec-2019 Instruction Type:Patient Education How to access health informa tion online - Detail Indication:Smoker Start:14-Dec-2019 Instruction Type:Patient Education Patient Instructions Indication:Smoker Start:14-Dec-2019 Instruction Type:Provider Instructions for Treatment How to access health informa tion online Indication:Smoker Start:02-Jan-2019 Instruction Type:Patient Education How to access health informa tion online - Detail Indication:Smoker Start:02-Jan-2019 Instruction Type:Patient Education Patient Instructions Indication:Smoker Start:02-Jan-2019 Instruction Type:Provider Instructions for Treatment How to access health informa tion online Indication:BMI 23.0-23.9, adult Start:15-Dec-2018 Instruction Type:Patient Education How to access health informa tion online - Detail Indication:BMI 23.0-23.9, adult Start:15-Dec-2018 Instruction Type:Patient Education Patient Instructions Indication:BMI 23.0-23.9, adult Start:15-Dec-2018 Instruction Type:Provider Instructions for Treatment [facility]; [facility] Work Phone: Instructions* Name Dates Details Patient Instructions Indication:BMI less than 19,adult Start:15-Feb-2022 Instruction Type:Provider Instructions for Treatment How to Access Health Informa tion Online using Patient Portal and [employer] Apps Indication:BMI less than 19,adult Start:15-Feb-2022 Instruction Type:Patient Education Patient Instructions Indication:Hypothyroid Start:15-Dec-2021 Instruction Type:Provider Instructions for Treatment How to Access Health Informa tion Online using Patient Portal and [employer] Apps Indication:Hypothyroid Start:15-Dec-2021 Instruction Type:Patient Education Patient Instructions Indication:Smoker Start:15-Aug-2021 Instruction Type:Provider Instructions for Treatment How to Access Health Informa tion Online using Patient Portal and [employer] Apps Indication:Smoker Start:15-Aug-2021 Instruction Type:Patient Education Patient Instructions Indication:BMI 20.0-20.9, adult Start:26-Jul-2021 Instruction Type:Provider Instructions for Treatment How to Access Health Informa tion Online using Patient Portal and [employer] Apps Indication:BMI 20.0-20.9, adult Start:26-Jul-2021 Instruction Type:Patient Education Patient Instructions Indication:Dry mouth Start:13-Mar-2021 Instruction Type:Provider Instructions for Treatment How to Access Health Informa tion Online using Patient Portal and [employer] Apps Indication:Dry mouth Start:13-Mar-2021 Instruction Type:Patient Education Patient Instructions Indication:B12 nutritional deficiency Start:02-Dec-2020 Instruction Type:Provider Instructions for Treatment How to Access Health Informa tion Online using Patient Portal and [employer] Apps Indication:Smoker Start:02-Dec-2020 Instruction Type:Patient Education Patient Instructions Indication:Hypothyroid Start:29-Aug-2020 Instruction Type:Provider Instructions for Treatment How to access health informa tion online Indication:BMI 23.0-23.9, adult Start:29-Aug-2020 Instruction Type:Patient Education How to access health informa tion online - Detail Indication:BMI 23.0-23.9, adult Start:29-Aug-2020 Instruction Type:Patient Education Patient Instructions Indication:BMI 23.0-23.9, adult Start:29-Aug-2020 Instruction Type:Provider Instructions for Treatment How to access health informa tion online Indication:Smoker Start:29-Jun-2020 Instruction Type:Patient Education How to access health informa tion online - Detail Indication:Smoker Start:29-Jun-2020 Instruction Type:Patient Education INSTRUCTIONS1 Indication:Smoker Start:29-Jun-2020 Instruction Type:Provider Instructions for Treatment How to access health informa tion online Indication:Smoker Start:14-Apr-2020 Instruction Type:Patient Education How to access health informa tion online - Detail Indication:Smoker Start:14-Apr-2020 Instruction Type:Patient Education Patient Instructions Indication:Smoker Start:14-Apr-2020 Instruction Type:Provider Instructions for Treatment How to access health informa tion online Indication:Smoker Start:14-Dec-2019 Instruction Type:Patient Education How to access health informa tion online - Detail Indication:Smoker Start:14-Dec-2019 Instruction Type:Patient Education Patient Instructions Indication:Smoker Start:14-Dec-2019 Instruction Type:Provider Instructions for Treatment How to access health informa tion online Indication:Smoker Start:02-Jan-2019 Instruction Type:Patient Education How to access health informa tion online - Detail Indication:Smoker Start:02-Jan-2019 Instruction Type:Patient Education Patient Instructions Indication:Smoker Start:02-Jan-2019 Instruction Type:Provider Instructions for Treatment How to access health informa tion online Indication:BMI 23.0-23.9, adult Start:15-Dec-2018 Instruction Type:Patient Education How to access health informa tion online - Detail Indication:BMI 23.0-23.9, adult Start:15-Dec-2018 Instruction Type:Patient Education Patient Instructions Indication:BMI 23.0-23.9, adult Start:15-Dec-2018 Instruction Type:Provider Instructions for Treatment [facility]; [facility] Work Phone: Instructions* Name Dates Details Patient Instructions Indication:BMI less than 19,adult Start:15-Feb-2022 Instruction Type:Provider Instructions for Treatment How to Access Health Informa tion Online using Patient Portal and [employer] Apps Indication:BMI less than 19,adult Start:15-Feb-2022 Instruction Type:Patient Education Patient Instructions Indication:Hypothyroid Start:15-Dec-2021 Instruction Type:Provider Instructions for Treatment How to Access Health Informa tion Online using Patient Portal and [employer] Apps Indication:Hypothyroid Start:15-Dec-2021 Instruction Type:Patient Education Patient Instructions Indication:Smoker Start:15-Aug-2021 Instruction Type:Provider Instructions for Treatment How to Access Health Informa tion Online using Patient Portal and [employer] Apps Indication:Smoker Start:15-Aug-2021 Instruction Type:Patient Education Patient Instructions Indication:BMI 20.0-20.9, adult Start:26-Jul-2021 Instruction Type:Provider Instructions for Treatment How to Access Health Informa tion Online using Patient Portal and [employer] Apps Indication:BMI 20.0-20.9, adult Start:26-Jul-2021 Instruction Type:Patient Education Patient Instructions Indication:Dry mouth Start:13-Mar-2021 Instruction Type:Provider Instructions for Treatment How to Access Health Informa tion Online using Patient Portal and [employer] Apps Indication:Dry mouth Start:13-Mar-2021 Instruction Type:Patient Education Patient Instructions Indication:B12 nutritional deficiency Start:02-Dec-2020 Instruction Type:Provider Instructions for Treatment How to Access Health Informa tion Online using Patient Portal and [employer] Apps Indication:Smoker Start:02-Dec-2020 Instruction Type:Patient Education Patient Instructions Indication:Hypothyroid Start:29-Aug-2020 Instruction Type:Provider Instructions for Treatment How to access health informa tion online Indication:BMI 23.0-23.9, adult Start:29-Aug-2020 Instruction Type:Patient Education How to access health informa tion online - Detail Indication:BMI 23.0-23.9, adult Start:29-Aug-2020 Instruction Type:Patient Education Patient Instructions Indication:BMI 23.0-23.9, adult Start:29-Aug-2020 Instruction Type:Provider Instructions for Treatment How to access health informa tion online Indication:Smoker Start:29-Jun-2020 Instruction Type:Patient Education How to access health informa tion online - Detail Indication:Smoker Start:29-Jun-2020 Instruction Type:Patient Education INSTRUCTIONS1 Indication:Smoker Start:29-Jun-2020 Instruction Type:Provider Instructions for Treatment How to access health informa tion online Indication:Smoker Start:14-Apr-2020 Instruction Type:Patient Education How to access health informa tion online - Detail Indication:Smoker Start:14-Apr-2020 Instruction Type:Patient Education Patient Instructions Indication:Smoker Start:14-Apr-2020 Instruction Type:Provider Instructions for Treatment How to access health informa tion online Indication:Smoker Start:14-Dec-2019 Instruction Type:Patient Education How to access health informa tion online - Detail Indication:Smoker Start:14-Dec-2019 Instruction Type:Patient Education Patient Instructions Indication:Smoker Start:14-Dec-2019 Instruction Type:Provider Instructions for Treatment How to access health informa tion online Indication:Smoker Start:02-Jan-2019 Instruction Type:Patient Education How to access health informa tion online - Detail Indication:Smoker Start:02-Jan-2019 Instruction Type:Patient Education Patient Instructions Indication:Smoker Start:02-Jan-2019 Instruction Type:Provider Instructions for Treatment How to access health informa tion online Indication:BMI 23.0-23.9, adult Start:15-Dec-2018 Instruction Type:Patient Education How to access health informa tion online - Detail Indication:BMI 23.0-23.9, adult Start:15-Dec-2018 Instruction Type:Patient Education Patient Instructions Indication:BMI 23.0-23.9, adult Start:15-Dec-2018 Instruction Type:Provider Instructions for Treatment [facility]; [facility] Work Phone: Instructions* Name Dates Details Patient Instructions Indication:BMI less than 19,adult Start:15-Feb-2022 Instruction Type:Provider Instructions for Treatment How to Access Health Informa tion Online using Patient Portal and [employer] Apps Indication:BMI less than 19,adult Start:15-Feb-2022 Instruction Type:Patient Education Patient Instructions Indication:Hypothyroid Start:15-Dec-2021 Instruction Type:Provider Instructions for Treatment How to Access Health Informa tion Online using Patient Portal and [employer] Apps Indication:Hypothyroid Start:15-Dec-2021 Instruction Type:Patient Education Patient Instructions Indication:Smoker Start:15-Aug-2021 Instruction Type:Provider Instructions for Treatment How to Access Health Informa tion Online using Patient Portal and [employer] Apps Indication:Smoker Start:15-Aug-2021 Instruction Type:Patient Education Patient Instructions Indication:BMI 20.0-20.9, adult Start:26-Jul-2021 Instruction Type:Provider Instructions for Treatment How to Access Health Informa tion Online using Patient Portal and [employer] Apps Indication:BMI 20.0-20.9, adult Start:26-Jul-2021 Instruction Type:Patient Education Patient Instructions Indication:Dry mouth Start:13-Mar-2021 Instruction Type:Provider Instructions for Treatment How to Access Health Informa tion Online using Patient Portal and [employer] Apps Indication:Dry mouth Start:13-Mar-2021 Instruction Type:Patient Education Patient Instructions Indication:B12 nutritional deficiency Start:02-Dec-2020 Instruction Type:Provider Instructions for Treatment How to Access Health Informa tion Online using Patient Portal and [employer] Apps Indication:Smoker Start:02-Dec-2020 Instruction Type:Patient Education Patient Instructions Indication:Hypothyroid Start:29-Aug-2020 Instruction Type:Provider Instructions for Treatment How to access health informa tion online Indication:BMI 23.0-23.9, adult Start:29-Aug-2020 Instruction Type:Patient Education How to access health informa tion online - Detail Indication:BMI 23.0-23.9, adult Start:29-Aug-2020 Instruction Type:Patient Education Patient Instructions Indication:BMI 23.0-23.9, adult Start:29-Aug-2020 Instruction Type:Provider Instructions for Treatment How to access health informa tion online Indication:Smoker Start:29-Jun-2020 Instruction Type:Patient Education How to access health informa tion online - Detail Indication:Smoker Start:29-Jun-2020 Instruction Type:Patient Education INSTRUCTIONS1 Indication:Smoker Start:29-Jun-2020 Instruction Type:Provider Instructions for Treatment How to access health informa tion online Indication:Smoker Start:14-Apr-2020 Instruction Type:Patient Education How to access health informa tion online - Detail Indication:Smoker Start:14-Apr-2020 Instruction Type:Patient Education Patient Instructions Indication:Smoker Start:14-Apr-2020 Instruction Type:Provider Instructions for Treatment How to access health informa tion online Indication:Smoker Start:14-Dec-2019 Instruction Type:Patient Education How to access health informa tion online - Detail Indication:Smoker Start:14-Dec-2019 Instruction Type:Patient Education Patient Instructions Indication:Smoker Start:14-Dec-2019 Instruction Type:Provider Instructions for Treatment How to access health informa tion online Indication:Smoker Start:02-Jan-2019 Instruction Type:Patient Education How to access health informa tion online - Detail Indication:Smoker Start:02-Jan-2019 Instruction Type:Patient Education Patient Instructions Indication:Smoker Start:02-Jan-2019 Instruction Type:Provider Instructions for Treatment How to access health informa tion online Indication:BMI 23.0-23.9, adult Start:15-Dec-2018 Instruction Type:Patient Education How to access health informa tion online - Detail Indication:BMI 23.0-23.9, adult Start:15-Dec-2018 Instruction Type:Patient Education Patient Instructions Indication:BMI 23.0-23.9, adult Start:15-Dec-2018 Instruction Type:Provider Instructions for Treatment [facility]; [facility] Work Phone: Instructions* Name Dates Details Patient Instructions Indication:BMI less than 19,adult Start:15-Feb-2022 Instruction Type:Provider Instructions for Treatment How to Access Health Informa tion Online using Patient Portal and [employer] Apps Indication:BMI less than 19,adult Start:15-Feb-2022 Instruction Type:Patient Education Patient Instructions Indication:Hypothyroid Start:15-Dec-2021 Instruction Type:Provider Instructions for Treatment How to Access Health Informa tion Online using Patient Portal and [employer] Apps Indication:Hypothyroid Start:15-Dec-2021 Instruction Type:Patient Education Patient Instructions Indication:Smoker Start:15-Aug-2021 Instruction Type:Provider Instructions for Treatment How to Access Health Informa tion Online using Patient Portal and [employer] Apps Indication:Smoker Start:15-Aug-2021 Instruction Type:Patient Education Patient Instructions Indication:BMI 20.0-20.9, adult Start:26-Jul-2021 Instruction Type:Provider Instructions for Treatment How to Access Health Informa tion Online using Patient Portal and [employer] Apps Indication:BMI 20.0-20.9, adult Start:26-Jul-2021 Instruction Type:Patient Education Patient Instructions Indication:Dry mouth Start:13-Mar-2021 Instruction Type:Provider Instructions for Treatment How to Access Health Informa tion Online using Patient Portal and [employer] Apps Indication:Dry mouth Start:13-Mar-2021 Instruction Type:Patient Education Patient Instructions Indication:B12 nutritional deficiency Start:02-Dec-2020 Instruction Type:Provider Instructions for Treatment How to Access Health Informa tion Online using Patient Portal and [employer] Apps Indication:Smoker Start:02-Dec-2020 Instruction Type:Patient Education Patient Instructions Indication:Hypothyroid Start:29-Aug-2020 Instruction Type:Provider Instructions for Treatment How to access health informa tion online Indication:BMI 23.0-23.9, adult Start:29-Aug-2020 Instruction Type:Patient Education How to access health informa tion online - Detail Indication:BMI 23.0-23.9, adult Start:29-Aug-2020 Instruction Type:Patient Education Patient Instructions Indication:BMI 23.0-23.9, adult Start:29-Aug-2020 Instruction Type:Provider Instructions for Treatment How to access health informa tion online Indication:Smoker Start:29-Jun-2020 Instruction Type:Patient Education How to access health informa tion online - Detail Indication:Smoker Start:29-Jun-2020 Instruction Type:Patient Education INSTRUCTIONS1 Indication:Smoker Start:29-Jun-2020 Instruction Type:Provider Instructions for Treatment How to access health informa tion online Indication:Smoker Start:14-Apr-2020 Instruction Type:Patient Education How to access health informa tion online - Detail Indication:Smoker Start:14-Apr-2020 Instruction Type:Patient Education Patient Instructions Indication:Smoker Start:14-Apr-2020 Instruction Type:Provider Instructions for Treatment How to access health informa tion online Indication:Smoker Start:14-Dec-2019 Instruction Type:Patient Education How to access health informa tion online - Detail Indication:Smoker Start:14-Dec-2019 Instruction Type:Patient Education Patient Instructions Indication:Smoker Start:14-Dec-2019 Instruction Type:Provider Instructions for Treatment How to access health informa tion online Indication:Smoker Start:02-Jan-2019 Instruction Type:Patient Education How to access health informa tion online - Detail Indication:Smoker Start:02-Jan-2019 Instruction Type:Patient Education Patient Instructions Indication:Smoker Start:02-Jan-2019 Instruction Type:Provider Instructions for Treatment How to access health informa tion online Indication:BMI 23.0-23.9, adult Start:15-Dec-2018 Instruction Type:Patient Education How to access health informa tion online - Detail Indication:BMI 23.0-23.9, adult Start:15-Dec-2018 Instruction Type:Patient Education Patient Instructions Indication:BMI 23.0-23.9, adult Start:15-Dec-2018 Instruction Type:Provider Instructions for Treatment [facility]; [facility] Work Phone: Instructions* Name Dates Details Patient Instructions Indication:BMI less than 19,adult Start:15-Feb-2022 Instruction Type:Provider Instructions for Treatment How to Access Health Informa tion Online using Patient Portal and 3rd [employer] Apps Indication:BMI less than 19,adult Start:15-Feb-2022 Instruction Type:Patient Education Patient Instructions Indication:Hypothyroid Start:15-Dec-2021 Instruction Type:Provider Instructions for Treatment How to Access Health Informa tion Online using Patient Portal and 3rd Republican Apps Indication:Hypothyroid Start:15-Dec-2021 Instruction Type:Patient Education Patient Instructions Indication:Smoker Start:15-Aug-2021 Instruction Type:Provider Instructions for Treatment How to Access Health Informa tion Online using Patient Portal and [employer]rd [employer] Apps Indication:Smoker Start:15-Aug-2021 Instruction Type:Patient Education Patient Instructions Indication:BMI 20.0-20.9, adult Start:26-Jul-2021 Instruction Type:Provider Instructions for Treatment How to Access Health Informa tion Online using Patient Portal and [employer]rd [employer] Apps Indication:BMI 20.0-20.9, adult Start:26-Jul-2021 Instruction Type:Patient Education Patient Instructions Indication:Dry mouth Start:13-Mar-2021 Instruction Type:Provider Instructions for Treatment How to Access Health Informa tion Online using Patient Portal and [employer]rd [employer] Apps Indication:Dry mouth Start:13-Mar-2021 Instruction Type:Patient Education Patient Instructions Indication:B12 nutritional deficiency Start:02-Dec-2020 Instruction Type:Provider Instructions for Treatment How to Access Health Informa tion Online using Patient Portal and [employer]rd [employer] Apps Indication:Smoker Start:02-Dec-2020 Instruction Type:Patient Education Patient Instructions Indication:Hypothyroid Start:29-Aug-2020 Instruction Type:Provider Instructions for Treatment How to access health informa tion online Indication:BMI 23.0-23.9, adult Start:29-Aug-2020 Instruction Type:Patient Education How to access health informa tion online - Detail Indication:BMI 23.0-23.9, adult Start:29-Aug-2020 Instruction Type:Patient Education Patient Instructions Indication:BMI 23.0-23.9, adult Start:29-Aug-2020 Instruction Type:Provider Instructions for Treatment How to access health informa tion online Indication:Smoker Start:29-Jun-2020 Instruction Type:Patient Education How to access health informa tion online - Detail Indication:Smoker Start:29-Jun-2020 Instruction Type:Patient Education INSTRUCTIONS1 Indication:Smoker Start:29-Jun-2020 Instruction Type:Provider Instructions for Treatment How to access health informa tion online Indication:Smoker Start:14-Apr-2020 Instruction Type:Patient Education How to access health informa tion online - Detail Indication:Smoker Start:14-Apr-2020 Instruction Type:Patient Education Patient Instructions Indication:Smoker Start:14-Apr-2020 Instruction Type:Provider Instructions for Treatment How to access health informa tion online Indication:Smoker Start:14-Dec-2019 Instruction Type:Patient Education How to access health informa tion online - Detail Indication:Smoker Start:14-Dec-2019 Instruction Type:Patient Education Patient Instructions Indication:Smoker Start:14-Dec-2019 Instruction Type:Provider Instructions for Treatment How to access health informa tion online Indication:Smoker Start:02-Jan-2019 Instruction Type:Patient Education How to access health informa tion online - Detail Indication:Smoker Start:02-Jan-2019 Instruction Type:Patient Education Patient Instructions Indication:Smoker Start:02-Jan-2019 Instruction Type:Provider Instructions for Treatment How to access health informa tion online Indication:BMI 23.0-23.9, adult Start:15-Dec-2018 Instruction Type:Patient Education How to access health informa tion online - Detail Indication:BMI 23.0-23.9, adult Start:15-Dec-2018 Instruction Type:Patient Education Patient Instructions Indication:BMI 23.0-23.9, adult Start:15-Dec-2018 Instruction Type:Provider Instructions for Treatment [facility]; [facility] Work Phone: Instructions* Name Dates Details Patient Instructions Indication:BMI less than 19,adult Start:15-Feb-2022 Instruction Type:Provider Instructions for Treatment How to Access Health Informa tion Online using Patient Portal and 3rd Republican Apps Indication:BMI less than 19,adult Start:15-Feb-2022 Instruction Type:Patient Education Patient Instructions Indication:Hypothyroid Start:15-Dec-2021 Instruction Type:Provider Instructions for Treatment How to Access Health Informa tion Online using Patient Portal and [employer]rd [employer] Apps Indication:Hypothyroid Start:15-Dec-2021 Instruction Type:Patient Education Patient Instructions Indication:Smoker Start:15-Aug-2021 Instruction Type:Provider Instructions for Treatment How to Access Health Informa tion Online using Patient Portal and [employer]rd [employer] Apps Indication:Smoker Start:15-Aug-2021 Instruction Type:Patient Education Patient Instructions Indication:BMI 20.0-20.9, adult Start:26-Jul-2021 Instruction Type:Provider Instructions for Treatment How to Access Health Informa tion Online using Patient Portal and [employer] Apps Indication:BMI 20.0-20.9, adult Start:26-Jul-2021 Instruction Type:Patient Education Patient Instructions Indication:Dry mouth Start:13-Mar-2021 Instruction Type:Provider Instructions for Treatment How to Access Health Informa tion Online using Patient Portal and [employer]rd [employer] Apps Indication:Dry mouth Start:13-Mar-2021 Instruction Type:Patient Education Patient Instructions Indication:B12 nutritional deficiency Start:02-Dec-2020 Instruction Type:Provider Instructions for Treatment How to Access Health Informa tion Online using Patient Portal and [employer] Apps Indication:Smoker Start:02-Dec-2020 Instruction Type:Patient Education Patient Instructions Indication:Hypothyroid Start:29-Aug-2020 Instruction Type:Provider Instructions for Treatment How to access health informa tion online Indication:BMI 23.0-23.9, adult Start:29-Aug-2020 Instruction Type:Patient Education How to access health informa tion online - Detail Indication:BMI 23.0-23.9, adult Start:29-Aug-2020 Instruction Type:Patient Education Patient Instructions Indication:BMI 23.0-23.9, adult Start:29-Aug-2020 Instruction Type:Provider Instructions for Treatment How to access health informa tion online Indication:Smoker Start:29-Jun-2020 Instruction Type:Patient Education How to access health informa tion online - Detail Indication:Smoker Start:29-Jun-2020 Instruction Type:Patient Education INSTRUCTIONS1 Indication:Smoker Start:29-Jun-2020 Instruction Type:Provider Instructions for Treatment How to access health informa tion online Indication:Smoker Start:14-Apr-2020 Instruction Type:Patient Education How to access health informa tion online - Detail Indication:Smoker Start:14-Apr-2020 Instruction Type:Patient Education Patient Instructions Indication:Smoker Start:14-Apr-2020 Instruction Type:Provider Instructions for Treatment How to access health informa tion online Indication:Smoker Start:14-Dec-2019 Instruction Type:Patient Education How to access health informa tion online - Detail Indication:Smoker Start:14-Dec-2019 Instruction Type:Patient Education Patient Instructions Indication:Smoker Start:14-Dec-2019 Instruction Type:Provider Instructions for Treatment How to access health informa tion online Indication:Smoker Start:02-Jan-2019 Instruction Type:Patient Education How to access health informa tion online - Detail Indication:Smoker Start:02-Jan-2019 Instruction Type:Patient Education Patient Instructions Indication:Smoker Start:02-Jan-2019 Instruction Type:Provider Instructions for Treatment How to access health informa tion online Indication:BMI 23.0-23.9, adult Start:15-Dec-2018 Instruction Type:Patient Education How to access health informa tion online - Detail Indication:BMI 23.0-23.9, adult Start:15-Dec-2018 Instruction Type:Patient Education Patient Instructions Indication:BMI 23.0-23.9, adult Start:15-Dec-2018 Instruction Type:Provider Instructions for Treatment [facility]; [facility] Work Phone: Instructions* Name Dates Details Patient Instructions Indication:BMI less than 19,adult Start:15-Feb-2022 Instruction Type:Provider Instructions for Treatment How to Access Health Informa tion Online using Patient Portal and [employer]rd [employer] Apps Indication:BMI less than 19,adult Start:15-Feb-2022 Instruction Type:Patient Education Patient Instructions Indication:Hypothyroid Start:15-Dec-2021 Instruction Type:Provider Instructions for Treatment How to Access Health Informa tion Online using Patient Portal and [employer] Apps Indication:Hypothyroid Start:15-Dec-2021 Instruction Type:Patient Education Patient Instructions Indication:Smoker Start:15-Aug-2021 Instruction Type:Provider Instructions for Treatment How to Access Health Informa tion Online using Patient Portal and [employer] Apps Indication:Smoker Start:15-Aug-2021 Instruction Type:Patient Education Patient Instructions Indication:BMI 20.0-20.9, adult Start:26-Jul-2021 Instruction Type:Provider Instructions for Treatment How to Access Health Informa tion Online using Patient Portal and [employer] Apps Indication:BMI 20.0-20.9, adult Start:26-Jul-2021 Instruction Type:Patient Education Patient Instructions Indication:Dry mouth Start:13-Mar-2021 Instruction Type:Provider Instructions for Treatment How to Access Health Informa tion Online using Patient Portal and [employer] Apps Indication:Dry mouth Start:21-Mike-2021 Instruction Type:Patient Education Patient Instructions Indication:B12 nutritional deficiency Start:02-Dec-2020 Instruction Type:Provider Instructions for Treatment How to Access Health Informa tion Online using Patient Portal and [employer] Apps Indication:Smoker Start:02-Dec-2020 Instruction Type:Patient Education Patient Instructions Indication:Hypothyroid Start:29-Aug-2020 Instruction Type:Provider Instructions for Treatment How to access health informa tion online Indication:BMI 23.0-23.9, adult Start:29-Aug-2020 Instruction Type:Patient Education How to access health informa tion online - Detail Indication:BMI 23.0-23.9, adult Start:29-Aug-2020 Instruction Type:Patient Education Patient Instructions Indication:BMI 23.0-23.9, adult Start:29-Aug-2020 Instruction Type:Provider Instructions for Treatment How to access health informa tion online Indication:Smoker Start:29-Jun-2020 Instruction Type:Patient Education How to access health informa tion online - Detail Indication:Smoker Start:29-Jun-2020 Instruction Type:Patient Education INSTRUCTIONS1 Indication:Smoker Start:29-Jun-2020 Instruction Type:Provider Instructions for Treatment How to access health informa tion online Indication:Smoker Start:14-Apr-2020 Instruction Type:Patient Education How to access health informa tion online - Detail Indication:Smoker Start:14-Apr-2020 Instruction Type:Patient Education Patient Instructions Indication:Smoker Start:14-Apr-2020 Instruction Type:Provider Instructions for Treatment How to access health informa tion online Indication:Smoker Start:14-Dec-2019 Instruction Type:Patient Education How to access health informa tion online - Detail Indication:Smoker Start:14-Dec-2019 Instruction Type:Patient Education Patient Instructions Indication:Smoker Start:14-Dec-2019 Instruction Type:Provider Instructions for Treatment How to access health informa tion online Indication:Smoker Start:02-Jan-2019 Instruction Type:Patient Education How to access health informa tion online - Detail Indication:Smoker Start:02-Jan-2019 Instruction Type:Patient Education Patient Instructions Indication:Smoker Start:02-Jan-2019 Instruction Type:Provider Instructions for Treatment How to access health informa tion online Indication:BMI 23.0-23.9, adult Start:15-Dec-2018 Instruction Type:Patient Education How to access health informa tion online - Detail Indication:BMI 23.0-23.9, adult Start:15-Dec-2018 Instruction Type:Patient Education Patient Instructions Indication:BMI 23.0-23.9, adult Start:15-Dec-2018 Instruction Type:Provider Instructions for Treatment [facility]; [facility] Work Phone: Instructions* Name Dates Details Patient Instructions Indication:BMI less than 19,adult Start:15-Feb-2022 Instruction Type:Provider Instructions for Treatment How to Access Health Informa tion Online using Patient Portal and [employer] Apps Indication:BMI less than 19,adult Start:15-Feb-2022 Instruction Type:Patient Education Patient Instructions Indication:Hypothyroid Start:15-Dec-2021 Instruction Type:Provider Instructions for Treatment How to Access Health Informa tion Online using Patient Portal and [employer] Apps Indication:Hypothyroid Start:15-Dec-2021 Instruction Type:Patient Education Patient Instructions Indication:Smoker Start:15-Aug-2021 Instruction Type:Provider Instructions for Treatment How to Access Health Informa tion Online using Patient Portal and [employer] Apps Indication:Smoker Start:15-Aug-2021 Instruction Type:Patient Education Patient Instructions Indication:BMI 20.0-20.9, adult Start:26-Jul-2021 Instruction Type:Provider Instructions for Treatment How to Access Health Informa tion Online using Patient Portal and [employer] Apps Indication:BMI 20.0-20.9, adult Start:26-Jul-2021 Instruction Type:Patient Education Patient Instructions Indication:Dry mouth Start:13-Mar-2021 Instruction Type:Provider Instructions for Treatment How to Access Health Informa tion Online using Patient Portal and [employer] Apps Indication:Dry mouth Start:13-Mar-2021 Instruction Type:Patient Education Patient Instructions Indication:B12 nutritional deficiency Start:02-Dec-2020 Instruction Type:Provider Instructions for Treatment How to Access Health Informa tion Online using Patient Portal and [employer] Apps Indication:Smoker Start:02-Dec-2020 Instruction Type:Patient Education Patient Instructions Indication:Hypothyroid Start:29-Aug-2020 Instruction Type:Provider Instructions for Treatment How to access health informa tion online Indication:BMI 23.0-23.9, adult Start:29-Aug-2020 Instruction Type:Patient Education How to access health informa tion online - Detail Indication:BMI 23.0-23.9, adult Start:29-Aug-2020 Instruction Type:Patient Education Patient Instructions Indication:BMI 23.0-23.9, adult Start:29-Aug-2020 Instruction Type:Provider Instructions for Treatment How to access health informa tion online Indication:Smoker Start:29-Jun-2020 Instruction Type:Patient Education How to access health informa tion online - Detail Indication:Smoker Start:29-Jun-2020 Instruction Type:Patient Education INSTRUCTIONS1 Indication:Smoker Start:29-Jun-2020 Instruction Type:Provider Instructions for Treatment How to access health informa tion online Indication:Smoker Start:14-Apr-2020 Instruction Type:Patient Education How to access health informa tion online - Detail Indication:Smoker Start:14-Apr-2020 Instruction Type:Patient Education Patient Instructions Indication:Smoker Start:14-Apr-2020 Instruction Type:Provider Instructions for Treatment How to access health informa tion online Indication:Smoker Start:14-Dec-2019 Instruction Type:Patient Education How to access health informa tion online - Detail Indication:Smoker Start:14-Dec-2019 Instruction Type:Patient Education Patient Instructions Indication:Smoker Start:14-Dec-2019 Instruction Type:Provider Instructions for Treatment How to access health informa tion online Indication:Smoker Start:02-Jan-2019 Instruction Type:Patient Education How to access health informa tion online - Detail Indication:Smoker Start:02-Jan-2019 Instruction Type:Patient Education Patient Instructions Indication:Smoker Start:02-Jan-2019 Instruction Type:Provider Instructions for Treatment How to access health informa tion online Indication:BMI 23.0-23.9, adult Start:15-Dec-2018 Instruction Type:Patient Education How to access health informa tion online - Detail Indication:BMI 23.0-23.9, adult Start:15-Dec-2018 Instruction Type:Patient Education Patient Instructions Indication:BMI 23.0-23.9, adult Start:15-Dec-2018 Instruction Type:Provider Instructions for Treatment [facility]; [facility] Work Phone: Instructions* Name Dates Details Patient Instructions Indication:BMI less than 19,adult Start:15-Feb-2022 Instruction Type:Provider Instructions for Treatment How to Access Health Informa tion Online using Patient Portal and [employer] Apps Indication:BMI less than 19,adult Start:15-Feb-2022 Instruction Type:Patient Education Patient Instructions Indication:Hypothyroid Start:15-Dec-2021 Instruction Type:Provider Instructions for Treatment How to Access Health Informa tion Online using Patient Portal and [employer] Apps Indication:Hypothyroid Start:15-Dec-2021 Instruction Type:Patient Education Patient Instructions Indication:Smoker Start:15-Aug-2021 Instruction Type:Provider Instructions for Treatment How to Access Health Informa tion Online using Patient Portal and [employer] Apps Indication:Smoker Start:15-Aug-2021 Instruction Type:Patient Education Patient Instructions Indication:BMI 20.0-20.9, adult Start:26-Jul-2021 Instruction Type:Provider Instructions for Treatment How to Access Health Informa tion Online using Patient Portal and [employer] Apps Indication:BMI 20.0-20.9, adult Start:26-Jul-2021 Instruction Type:Patient Education Patient Instructions Indication:Dry mouth Start:13-Mar-2021 Instruction Type:Provider Instructions for Treatment How to Access Health Informa tion Online using Patient Portal and [employer] Apps Indication:Dry mouth Start:13-Mar-2021 Instruction Type:Patient Education Patient Instructions Indication:B12 nutritional deficiency Start:02-Dec-2020 Instruction Type:Provider Instructions for Treatment How to Access Health Informa tion Online using Patient Portal and [employer] Apps Indication:Smoker Start:02-Dec-2020 Instruction Type:Patient Education Patient Instructions Indication:Hypothyroid Start:29-Aug-2020 Instruction Type:Provider Instructions for Treatment How to access health informa tion online Indication:BMI 23.0-23.9, adult Start:29-Aug-2020 Instruction Type:Patient Education How to access health informa tion online - Detail Indication:BMI 23.0-23.9, adult Start:29-Aug-2020 Instruction Type:Patient Education Patient Instructions Indication:BMI 23.0-23.9, adult Start:29-Aug-2020 Instruction Type:Provider Instructions for Treatment How to access health informa tion online Indication:Smoker Start:29-Jun-2020 Instruction Type:Patient Education How to access health informa tion online - Detail Indication:Smoker Start:29-Jun-2020 Instruction Type:Patient Education INSTRUCTIONS1 Indication:Smoker Start:29-Jun-2020 Instruction Type:Provider Instructions for Treatment How to access health informa tion online Indication:Smoker Start:14-Apr-2020 Instruction Type:Patient Education How to access health informa tion online - Detail Indication:Smoker Start:14-Apr-2020 Instruction Type:Patient Education Patient Instructions Indication:Smoker Start:14-Apr-2020 Instruction Type:Provider Instructions for Treatment How to access health informa tion online Indication:Smoker Start:14-Dec-2019 Instruction Type:Patient Education How to access health informa tion online - Detail Indication:Smoker Start:14-Dec-2019 Instruction Type:Patient Education Patient Instructions Indication:Smoker Start:14-Dec-2019 Instruction Type:Provider Instructions for Treatment How to access health informa tion online Indication:Smoker Start:02-Jan-2019 Instruction Type:Patient Education How to access health informa tion online - Detail Indication:Smoker Start:02-Jan-2019 Instruction Type:Patient Education Patient Instructions Indication:Smoker Start:02-Jan-2019 Instruction Type:Provider Instructions for Treatment How to access health informa tion online Indication:BMI 23.0-23.9, adult Start:15-Dec-2018 Instruction Type:Patient Education How to access health informa tion online - Detail Indication:BMI 23.0-23.9, adult Start:15-Dec-2018 Instruction Type:Patient Education Patient Instructions Indication:BMI 23.0-23.9, adult Start:15-Dec-2018 Instruction Type:Provider Instructions for Treatment [facility]; [facility] Work Phone: Instructions* Name Dates Details Patient Instructions Indication:BMI less than 19,adult Start:15-Feb-2022 Instruction Type:Provider Instructions for Treatment How to Access Health Informa tion Online using Patient Portal and [employer] Apps Indication:BMI less than 19,adult Start:15-Feb-2022 Instruction Type:Patient Education Patient Instructions Indication:Hypothyroid Start:15-Dec-2021 Instruction Type:Provider Instructions for Treatment How to Access Health Informa tion Online using Patient Portal and [employer] Apps Indication:Hypothyroid Start:15-Dec-2021 Instruction Type:Patient Education Patient Instructions Indication:Smoker Start:15-Aug-2021 Instruction Type:Provider Instructions for Treatment How to Access Health Informa tion Online using Patient Portal and [employer] Apps Indication:Smoker Start:15-Aug-2021 Instruction Type:Patient Education Patient Instructions Indication:BMI 20.0-20.9, adult Start:26-Jul-2021 Instruction Type:Provider Instructions for Treatment How to Access Health Informa tion Online using Patient Portal and [employer] Apps Indication:BMI 20.0-20.9, adult Start:26-Jul-2021 Instruction Type:Patient Education Patient Instructions Indication:Dry mouth Start:13-Mar-2021 Instruction Type:Provider Instructions for Treatment How to Access Health Informa tion Online using Patient Portal and [employer] Apps Indication:Dry mouth Start:13-Mar-2021 Instruction Type:Patient Education Patient Instructions Indication:B12 nutritional deficiency Start:02-Dec-2020 Instruction Type:Provider Instructions for Treatment How to Access Health Informa tion Online using Patient Portal and [employer] Apps Indication:Smoker Start:02-Dec-2020 Instruction Type:Patient Education Patient Instructions Indication:Hypothyroid Start:29-Aug-2020 Instruction Type:Provider Instructions for Treatment How to access health informa tion online Indication:BMI 23.0-23.9, adult Start:29-Aug-2020 Instruction Type:Patient Education How to access health informa tion online - Detail Indication:BMI 23.0-23.9, adult Start:29-Aug-2020 Instruction Type:Patient Education Patient Instructions Indication:BMI 23.0-23.9, adult Start:29-Aug-2020 Instruction Type:Provider Instructions for Treatment How to access health informa tion online Indication:Smoker Start:29-Jun-2020 Instruction Type:Patient Education How to access health informa tion online - Detail Indication:Smoker Start:29-Jun-2020 Instruction Type:Patient Education INSTRUCTIONS1 Indication:Smoker Start:29-Jun-2020 Instruction Type:Provider Instructions for Treatment How to access health informa tion online Indication:Smoker Start:14-Apr-2020 Instruction Type:Patient Education How to access health informa tion online - Detail Indication:Smoker Start:14-Apr-2020 Instruction Type:Patient Education Patient Instructions Indication:Smoker Start:14-Apr-2020 Instruction Type:Provider Instructions for Treatment How to access health informa tion online Indication:Smoker Start:14-Dec-2019 Instruction Type:Patient Education How to access health informa tion online - Detail Indication:Smoker Start:14-Dec-2019 Instruction Type:Patient Education Patient Instructions Indication:Smoker Start:14-Dec-2019 Instruction Type:Provider Instructions for Treatment How to access health informa tion online Indication:Smoker Start:02-Jan-2019 Instruction Type:Patient Education How to access health informa tion online - Detail Indication:Smoker Start:02-Jan-2019 Instruction Type:Patient Education Patient Instructions Indication:Smoker Start:02-Jan-2019 Instruction Type:Provider Instructions for Treatment How to access health informa tion online Indication:BMI 23.0-23.9, adult Start:15-Dec-2018 Instruction Type:Patient Education How to access health informa tion online - Detail Indication:BMI 23.0-23.9, adult Start:15-Dec-2018 Instruction Type:Patient Education Patient Instructions Indication:BMI 23.0-23.9, adult Start:15-Dec-2018 Instruction Type:Provider Instructions for Treatment [facility]; [facility] Work Phone: Instructions* Name Dates Details Patient Instructions Indication:BMI less than 19,adult Start:15-Feb-2022 Instruction Type:Provider Instructions for Treatment How to Access Health Informa tion Online using Patient Portal and [employer]rd [employer] Apps Indication:BMI less than 19,adult Start:15-Feb-2022 Instruction Type:Patient Education Patient Instructions Indication:Hypothyroid Start:15-Dec-2021 Instruction Type:Provider Instructions for Treatment How to Access Health Informa tion Online using Patient Portal and [employer]rd [employer] Apps Indication:Hypothyroid Start:15-Dec-2021 Instruction Type:Patient Education Patient Instructions Indication:Smoker Start:15-Aug-2021 Instruction Type:Provider Instructions for Treatment How to Access Health Informa tion Online using Patient Portal and [employer]rd [employer] Apps Indication:Smoker Start:15-Aug-2021 Instruction Type:Patient Education Patient Instructions Indication:BMI 20.0-20.9, adult Start:26-Jul-2021 Instruction Type:Provider Instructions for Treatment How to Access Health Informa tion Online using Patient Portal and [employer]rd [employer] Apps Indication:BMI 20.0-20.9, adult Start:26-Jul-2021 Instruction Type:Patient Education Patient Instructions Indication:Dry mouth Start:13-Mar-2021 Instruction Type:Provider Instructions for Treatment How to Access Health Informa tion Online using Patient Portal and [employer]rd [employer] Apps Indication:Dry mouth Start:13-Mar-2021 Instruction Type:Patient Education Patient Instructions Indication:B12 nutritional deficiency Start:02-Dec-2020 Instruction Type:Provider Instructions for Treatment How to Access Health Informa tion Online using Patient Portal and [employer]rd [employer] Apps Indication:Smoker Start:02-Dec-2020 Instruction Type:Patient Education Patient Instructions Indication:Hypothyroid Start:29-Aug-2020 Instruction Type:Provider Instructions for Treatment How to access health informa tion online Indication:BMI 23.0-23.9, adult Start:29-Aug-2020 Instruction Type:Patient Education How to access health informa tion online - Detail Indication:BMI 23.0-23.9, adult Start:29-Aug-2020 Instruction Type:Patient Education Patient Instructions Indication:BMI 23.0-23.9, adult Start:29-Aug-2020 Instruction Type:Provider Instructions for Treatment How to access health informa tion online Indication:Smoker Start:29-Jun-2020 Instruction Type:Patient Education How to access health informa tion online - Detail Indication:Smoker Start:29-Jun-2020 Instruction Type:Patient Education INSTRUCTIONS1 Indication:Smoker Start:29-Jun-2020 Instruction Type:Provider Instructions for Treatment How to access health informa tion online Indication:Smoker Start:14-Apr-2020 Instruction Type:Patient Education How to access health informa tion online - Detail Indication:Smoker Start:14-Apr-2020 Instruction Type:Patient Education Patient Instructions Indication:Smoker Start:14-Apr-2020 Instruction Type:Provider Instructions for Treatment How to access health informa tion online Indication:Smoker Start:14-Dec-2019 Instruction Type:Patient Education How to access health informa tion online - Detail Indication:Smoker Start:14-Dec-2019 Instruction Type:Patient Education Patient Instructions Indication:Smoker Start:14-Dec-2019 Instruction Type:Provider Instructions for Treatment How to access health informa tion online Indication:Smoker Start:02-Jan-2019 Instruction Type:Patient Education How to access health informa tion online - Detail Indication:Smoker Start:02-Jan-2019 Instruction Type:Patient Education Patient Instructions Indication:Smoker Start:02-Jan-2019 Instruction Type:Provider Instructions for Treatment How to access health informa tion online Indication:BMI 23.0-23.9, adult Start:15-Dec-2018 Instruction Type:Patient Education How to access health informa tion online - Detail Indication:BMI 23.0-23.9, adult Start:15-Dec-2018 Instruction Type:Patient Education Patient Instructions Indication:BMI 23.0-23.9, adult Start:15-Dec-2018 Instruction Type:Provider Instructions for Treatment [facility]; [facility] Work Phone: Instructions* Name Dates Details Patient Instructions Indication:BMI less than 19,adult Start:15-Feb-2022 Instruction Type:Provider Instructions for Treatment How to Access Health Informa tion Online using Patient Portal and [employer]rd [employer] Apps Indication:BMI less than 19,adult Start:15-Feb-2022 Instruction Type:Patient Education Patient Instructions Indication:Hypothyroid Start:15-Dec-2021 Instruction Type:Provider Instructions for Treatment How to Access Health Informa tion Online using Patient Portal and [employer]rd [employer] Apps Indication:Hypothyroid Start:15-Dec-2021 Instruction Type:Patient Education Patient Instructions Indication:Smoker Start:15-Aug-2021 Instruction Type:Provider Instructions for Treatment How to Access Health Informa tion Online using Patient Portal and [employer]rd [employer] Apps Indication:Smoker Start:15-Aug-2021 Instruction Type:Patient Education Patient Instructions Indication:BMI 20.0-20.9, adult Start:26-Jul-2021 Instruction Type:Provider Instructions for Treatment How to Access Health Informa tion Online using Patient Portal and [employer]rd [employer] Apps Indication:BMI 20.0-20.9, adult Start:26-Jul-2021 Instruction Type:Patient Education Patient Instructions Indication:Dry mouth Start:13-Mar-2021 Instruction Type:Provider Instructions for Treatment How to Access Health Informa tion Online using Patient Portal and [employer]rd [employer] Apps Indication:Dry mouth Start:13-Mar-2021 Instruction Type:Patient Education Patient Instructions Indication:B12 nutritional deficiency Start:02-Dec-2020 Instruction Type:Provider Instructions for Treatment How to Access Health Informa tion Online using Patient Portal and [employer]rd [employer] Apps Indication:Smoker Start:02-Dec-2020 Instruction Type:Patient Education Patient Instructions Indication:Hypothyroid Start:29-Aug-2020 Instruction Type:Provider Instructions for Treatment How to access health informa tion online Indication:BMI 23.0-23.9, adult Start:29-Aug-2020 Instruction Type:Patient Education How to access health informa tion online - Detail Indication:BMI 23.0-23.9, adult Start:29-Aug-2020 Instruction Type:Patient Education Patient Instructions Indication:BMI 23.0-23.9, adult Start:29-Aug-2020 Instruction Type:Provider Instructions for Treatment How to access health informa tion online Indication:Smoker Start:29-Jun-2020 Instruction Type:Patient Education How to access health informa tion online - Detail Indication:Smoker Start:29-Jun-2020 Instruction Type:Patient Education INSTRUCTIONS1 Indication:Smoker Start:29-Jun-2020 Instruction Type:Provider Instructions for Treatment How to access health informa tion online Indication:Smoker Start:14-Apr-2020 Instruction Type:Patient Education How to access health informa tion online - Detail Indication:Smoker Start:14-Apr-2020 Instruction Type:Patient Education Patient Instructions Indication:Smoker Start:14-Apr-2020 Instruction Type:Provider Instructions for Treatment How to access health informa tion online Indication:Smoker Start:14-Dec-2019 Instruction Type:Patient Education How to access health informa tion online - Detail Indication:Smoker Start:14-Dec-2019 Instruction Type:Patient Education Patient Instructions Indication:Smoker Start:14-Dec-2019 Instruction Type:Provider Instructions for Treatment How to access health informa tion online Indication:Smoker Start:02-Jan-2019 Instruction Type:Patient Education How to access health informa tion online - Detail Indication:Smoker Start:02-Jan-2019 Instruction Type:Patient Education Patient Instructions Indication:Smoker Start:02-Jan-2019 Instruction Type:Provider Instructions for Treatment How to access health informa tion online Indication:BMI 23.0-23.9, adult Start:15-Dec-2018 Instruction Type:Patient Education How to access health informa tion online - Detail Indication:BMI 23.0-23.9, adult Start:15-Dec-2018 Instruction Type:Patient Education Patient Instructions Indication:BMI 23.0-23.9, adult Start:15-Dec-2018 Instruction Type:Provider Instructions for Treatment [facility]; [facility] Work Phone: Instructions* Name Dates Details Patient Instructions Indication:BMI less than 19,adult Start:15-Feb-2022 Instruction Type:Provider Instructions for Treatment How to Access Health Informa tion Online using Patient Portal and [employer]rd [employer] Apps Indication:BMI less than 19,adult Start:15-Feb-2022 Instruction Type:Patient Education Patient Instructions Indication:Hypothyroid Start:15-Dec-2021 Instruction Type:Provider Instructions for Treatment How to Access Health Informa tion Online using Patient Portal and [employer]rd [employer] Apps Indication:Hypothyroid Start:15-Dec-2021 Instruction Type:Patient Education Patient Instructions Indication:Smoker Start:15-Aug-2021 Instruction Type:Provider Instructions for Treatment How to Access Health Informa tion Online using Patient Portal and [employer]rd [employer] Apps Indication:Smoker Start:15-Aug-2021 Instruction Type:Patient Education Patient Instructions Indication:BMI 20.0-20.9, adult Start:26-Jul-2021 Instruction Type:Provider Instructions for Treatment How to Access Health Informa tion Online using Patient Portal and [employer]rd [employer] Apps Indication:BMI 20.0-20.9, adult Start:26-Jul-2021 Instruction Type:Patient Education Patient Instructions Indication:Dry mouth Start:13-Mar-2021 Instruction Type:Provider Instructions for Treatment How to Access Health Informa tion Online using Patient Portal and [employer]rd [employer] Apps Indication:Dry mouth Start:13-Mar-2021 Instruction Type:Patient Education Patient Instructions Indication:B12 nutritional deficiency Start:02-Dec-2020 Instruction Type:Provider Instructions for Treatment How to Access Health Informa tion Online using Patient Portal and [employer]rd [employer] Apps Indication:Smoker Start:02-Dec-2020 Instruction Type:Patient Education Patient Instructions Indication:Hypothyroid Start:29-Aug-2020 Instruction Type:Provider Instructions for Treatment How to access health informa tion online Indication:BMI 23.0-23.9, adult Start:29-Aug-2020 Instruction Type:Patient Education How to access health informa tion online - Detail Indication:BMI 23.0-23.9, adult Start:29-Aug-2020 Instruction Type:Patient Education Patient Instructions Indication:BMI 23.0-23.9, adult Start:29-Aug-2020 Instruction Type:Provider Instructions for Treatment How to access health informa tion online Indication:Smoker Start:29-Jun-2020 Instruction Type:Patient Education How to access health informa tion online - Detail Indication:Smoker Start:29-Jun-2020 Instruction Type:Patient Education INSTRUCTIONS1 Indication:Smoker Start:29-Jun-2020 Instruction Type:Provider Instructions for Treatment How to access health informa tion online Indication:Smoker Start:14-Apr-2020 Instruction Type:Patient Education How to access health informa tion online - Detail Indication:Smoker Start:14-Apr-2020 Instruction Type:Patient Education Patient Instructions Indication:Smoker Start:14-Apr-2020 Instruction Type:Provider Instructions for Treatment How to access health informa tion online Indication:Smoker Start:14-Dec-2019 Instruction Type:Patient Education How to access health informa tion online - Detail Indication:Smoker Start:14-Dec-2019 Instruction Type:Patient Education Patient Instructions Indication:Smoker Start:14-Dec-2019 Instruction Type:Provider Instructions for Treatment How to access health informa tion online Indication:Smoker Start:02-Jan-2019 Instruction Type:Patient Education How to access health informa tion online - Detail Indication:Smoker Start:02-Jan-2019 Instruction Type:Patient Education Patient Instructions Indication:Smoker Start:02-Jan-2019 Instruction Type:Provider Instructions for Treatment How to access health informa tion online Indication:BMI 23.0-23.9, adult Start:15-Dec-2018 Instruction Type:Patient Education How to access health informa tion online - Detail Indication:BMI 23.0-23.9, adult Start:15-Dec-2018 Instruction Type:Patient Education Patient Instructions Indication:BMI 23.0-23.9, adult Start:15-Dec-2018 Instruction Type:Provider Instructions for Treatment [facility]; [facility] Work Phone: Instructions* Name Dates Details Patient Instructions Indication:BMI less than 19,adult Start:15-Feb-2022 Instruction Type:Provider Instructions for Treatment How to Access Health Informa tion Online using Patient Portal and [employer]rd [employer] Apps Indication:BMI less than 19,adult Start:15-Feb-2022 Instruction Type:Patient Education Patient Instructions Indication:Hypothyroid Start:15-Dec-2021 Instruction Type:Provider Instructions for Treatment How to Access Health Informa tion Online using Patient Portal and [employer]rd [employer] Apps Indication:Hypothyroid Start:15-Dec-2021 Instruction Type:Patient Education Patient Instructions Indication:Smoker Start:15-Aug-2021 Instruction Type:Provider Instructions for Treatment How to Access Health Informa tion Online using Patient Portal and [employer]rd [employer] Apps Indication:Smoker Start:15-Aug-2021 Instruction Type:Patient Education Patient Instructions Indication:BMI 20.0-20.9, adult Start:26-Jul-2021 Instruction Type:Provider Instructions for Treatment How to Access Health Informa tion Online using Patient Portal and [employer]rd [employer] Apps Indication:BMI 20.0-20.9, adult Start:26-Jul-2021 Instruction Type:Patient Education Patient Instructions Indication:Dry mouth Start:13-Mar-2021 Instruction Type:Provider Instructions for Treatment How to Access Health Informa tion Online using Patient Portal and [employer]rd [employer] Apps Indication:Dry mouth Start:13-Mar-2021 Instruction Type:Patient Education Patient Instructions Indication:B12 nutritional deficiency Start:02-Dec-2020 Instruction Type:Provider Instructions for Treatment How to Access Health Informa tion Online using Patient Portal and [employer]rd [employer] Apps Indication:Smoker Start:02-Dec-2020 Instruction Type:Patient Education Patient Instructions Indication:Hypothyroid Start:29-Aug-2020 Instruction Type:Provider Instructions for Treatment How to access health informa tion online Indication:BMI 23.0-23.9, adult Start:29-Aug-2020 Instruction Type:Patient Education How to access health informa tion online - Detail Indication:BMI 23.0-23.9, adult Start:29-Aug-2020 Instruction Type:Patient Education Patient Instructions Indication:BMI 23.0-23.9, adult Start:29-Aug-2020 Instruction Type:Provider Instructions for Treatment How to access health informa tion online Indication:Smoker Start:29-Jun-2020 Instruction Type:Patient Education How to access health informa tion online - Detail Indication:Smoker Start:29-Jun-2020 Instruction Type:Patient Education INSTRUCTIONS1 Indication:Smoker Start:29-Jun-2020 Instruction Type:Provider Instructions for Treatment How to access health informa tion online Indication:Smoker Start:14-Apr-2020 Instruction Type:Patient Education How to access health informa tion online - Detail Indication:Smoker Start:14-Apr-2020 Instruction Type:Patient Education Patient Instructions Indication:Smoker Start:14-Apr-2020 Instruction Type:Provider Instructions for Treatment How to access health informa tion online Indication:Smoker Start:14-Dec-2019 Instruction Type:Patient Education How to access health informa tion online - Detail Indication:Smoker Start:14-Dec-2019 Instruction Type:Patient Education Patient Instructions Indication:Smoker Start:14-Dec-2019 Instruction Type:Provider Instructions for Treatment How to access health informa tion online Indication:Smoker Start:02-Jan-2019 Instruction Type:Patient Education How to access health informa tion online - Detail Indication:Smoker Start:02-Jan-2019 Instruction Type:Patient Education Patient Instructions Indication:Smoker Start:02-Jan-2019 Instruction Type:Provider Instructions for Treatment How to access health informa tion online Indication:BMI 23.0-23.9, adult Start:15-Dec-2018 Instruction Type:Patient Education How to access health informa tion online - Detail Indication:BMI 23.0-23.9, adult Start:15-Dec-2018 Instruction Type:Patient Education Patient Instructions Indication:BMI 23.0-23.9, adult Start:15-Dec-2018 Instruction Type:Provider Instructions for Treatment [facility]; [facility] Work Phone: Instructions* Name Dates Details Patient Instructions Indication:Tobacco abuse, in remission Start:16-Jan-2023 Instruction Type:Provider Instructions for Treatment How to Access Health Informa tion Online using Patient Portal and [employer]rd [employer] Apps Indication:Tobacco abuse, in remission Start:16-Jan-2023 Instruction Type:Patient Education Patient Instructions Indication:BMI less than 19,adult Start:15-Feb-2022 Instruction Type:Provider Instructions for Treatment How to Access Health Informa tion Online using Patient Portal and [employer]rd [employer] Apps Indication:BMI less than 19,adult Start:15-Feb-2022 Instruction Type:Patient Education Patient Instructions Indication:Hypothyroid Start:15-Dec-2021 Instruction Type:Provider Instructions for Treatment How to Access Health Informa tion Online using Patient Portal and [employer]rd [employer] Apps Indication:Hypothyroid Start:15-Dec-2021 Instruction Type:Patient Education Patient Instructions Indication:Smoker Start:15-Aug-2021 Instruction Type:Provider Instructions for Treatment How to Access Health Informa tion Online using Patient Portal and [employer]rd [employer] Apps Indication:Smoker Start:15-Aug-2021 Instruction Type:Patient Education Patient Instructions Indication:BMI 20.0-20.9, adult Start:26-Jul-2021 Instruction Type:Provider Instructions for Treatment How to Access Health Informa tion Online using Patient Portal and [employer]rd [employer] Apps Indication:BMI 20.0-20.9, adult Start:26-Jul-2021 Instruction Type:Patient Education Patient Instructions Indication:Dry mouth Start:13-Mar-2021 Instruction Type:Provider Instructions for Treatment How to Access Health Informa tion Online using Patient Portal and [employer]rd [employer] Apps Indication:Dry mouth Start:13-Mar-2021 Instruction Type:Patient Education Patient Instructions Indication:B12 nutritional deficiency Start:02-Dec-2020 Instruction Type:Provider Instructions for Treatment How to Access Health Informa tion Online using Patient Portal and [employer]rd [employer] Apps Indication:Smoker Start:02-Dec-2020 Instruction Type:Patient Education Patient Instructions Indication:Hypothyroid Start:29-Aug-2020 Instruction Type:Provider Instructions for Treatment How to access health informa tion online Indication:BMI 23.0-23.9, adult Start:29-Aug-2020 Instruction Type:Patient Education How to access health informa tion online - Detail Indication:BMI 23.0-23.9, adult Start:29-Aug-2020 Instruction Type:Patient Education Patient Instructions Indication:BMI 23.0-23.9, adult Start:29-Aug-2020 Instruction Type:Provider Instructions for Treatment How to access health informa tion online Indication:Smoker Start:29-Jun-2020 Instruction Type:Patient Education How to access health informa tion online - Detail Indication:Smoker Start:29-Jun-2020 Instruction Type:Patient Education INSTRUCTIONS1 Indication:Smoker Start:29-Jun-2020 Instruction Type:Provider Instructions for Treatment How to access health informa tion online Indication:Smoker Start:14-Apr-2020 Instruction Type:Patient Education How to access health informa tion online - Detail Indication:Smoker Start:14-Apr-2020 Instruction Type:Patient Education Patient Instructions Indication:Smoker Start:14-Apr-2020 Instruction Type:Provider Instructions for Treatment How to access health informa tion online Indication:Smoker Start:14-Dec-2019 Instruction Type:Patient Education How to access health informa tion online - Detail Indication:Smoker Start:14-Dec-2019 Instruction Type:Patient Education Patient Instructions Indication:Smoker Start:14-Dec-2019 Instruction Type:Provider Instructions for Treatment How to access health informa tion online Indication:Smoker Start:02-Jan-2019 Instruction Type:Patient Education How to access health informa tion online - Detail Indication:Smoker Start:02-Jan-2019 Instruction Type:Patient Education Patient Instructions Indication:Smoker Start:02-Jan-2019 Instruction Type:Provider Instructions for Treatment How to access health informa tion online Indication:BMI 23.0-23.9, adult Start:15-Dec-2018 Instruction Type:Patient Education How to access health informa tion online - Detail Indication:BMI 23.0-23.9, adult Start:15-Dec-2018 Instruction Type:Patient Education Patient Instructions Indication:BMI 23.0-23.9, adult Start:15-Dec-2018 Instruction Type:Provider Instructions for Treatment [facility]; [facility] Work Phone: Instructions* Name Dates Details Patient Instructions Indication:Tobacco abuse, in remission Start:16-Jan-2023 Instruction Type:Provider Instructions for Treatment How to Access Health Informa tion Online using Patient Portal and [employer]rd [employer] Apps Indication:Tobacco abuse, in remission Start:16-Jan-2023 Instruction Type:Patient Education Patient Instructions Indication:BMI less than 19,adult Start:15-Feb-2022 Instruction Type:Provider Instructions for Treatment How to Access Health Informa tion Online using Patient Portal and [employer]rd [employer] Apps Indication:BMI less than 19,adult Start:15-Feb-2022 Instruction Type:Patient Education Patient Instructions Indication:Hypothyroid Start:15-Dec-2021 Instruction Type:Provider Instructions for Treatment How to Access Health Informa tion Online using Patient Portal and [employer]rd [employer] Apps Indication:Hypothyroid Start:15-Dec-2021 Instruction Type:Patient Education Patient Instructions Indication:Smoker Start:15-Aug-2021 Instruction Type:Provider Instructions for Treatment How to Access Health Informa tion Online using Patient Portal and [employer]rd [employer] Apps Indication:Smoker Start:15-Aug-2021 Instruction Type:Patient Education Patient Instructions Indication:BMI 20.0-20.9, adult Start:26-Jul-2021 Instruction Type:Provider Instructions for Treatment How to Access Health Informa tion Online using Patient Portal and [employer]rd [employer] Apps Indication:BMI 20.0-20.9, adult Start:26-Jul-2021 Instruction Type:Patient Education Patient Instructions Indication:Dry mouth Start:13-Mar-2021 Instruction Type:Provider Instructions for Treatment How to Access Health Informa tion Online using Patient Portal and [employer]rd [employer] Apps Indication:Dry mouth Start:13-Mar-2021 Instruction Type:Patient Education Patient Instructions Indication:B12 nutritional deficiency Start:02-Dec-2020 Instruction Type:Provider Instructions for Treatment How to Access Health Informa tion Online using Patient Portal and [employer]rd [employer] Apps Indication:Smoker Start:02-Dec-2020 Instruction Type:Patient Education Patient Instructions Indication:Hypothyroid Start:29-Aug-2020 Instruction Type:Provider Instructions for Treatment How to access health informa tion online Indication:BMI 23.0-23.9, adult Start:29-Aug-2020 Instruction Type:Patient Education How to access health informa tion online - Detail Indication:BMI 23.0-23.9, adult Start:29-Aug-2020 Instruction Type:Patient Education Patient Instructions Indication:BMI 23.0-23.9, adult Start:29-Aug-2020 Instruction Type:Provider Instructions for Treatment How to access health informa tion online Indication:Smoker Start:29-Jun-2020 Instruction Type:Patient Education How to access health informa tion online - Detail Indication:Smoker Start:29-Jun-2020 Instruction Type:Patient Education INSTRUCTIONS1 Indication:Smoker Start:29-Jun-2020 Instruction Type:Provider Instructions for Treatment How to access health informa tion online Indication:Smoker Start:14-Apr-2020 Instruction Type:Patient Education How to access health informa tion online - Detail Indication:Smoker Start:14-Apr-2020 Instruction Type:Patient Education Patient Instructions Indication:Smoker Start:14-Apr-2020 Instruction Type:Provider Instructions for Treatment How to access health informa tion online Indication:Smoker Start:14-Dec-2019 Instruction Type:Patient Education How to access health informa tion online - Detail Indication:Smoker Start:14-Dec-2019 Instruction Type:Patient Education Patient Instructions Indication:Smoker Start:14-Dec-2019 Instruction Type:Provider Instructions for Treatment How to access health informa tion online Indication:Smoker Start:02-Jan-2019 Instruction Type:Patient Education How to access health informa tion online - Detail Indication:Smoker Start:02-Jan-2019 Instruction Type:Patient Education Patient Instructions Indication:Smoker Start:02-Jan-2019 Instruction Type:Provider Instructions for Treatment How to access health informa tion online Indication:BMI 23.0-23.9, adult Start:15-Dec-2018 Instruction Type:Patient Education How to access health informa tion online - Detail Indication:BMI 23.0-23.9, adult Start:15-Dec-2018 Instruction Type:Patient Education Patient Instructions Indication:BMI 23.0-23.9, adult Start:15-Dec-2018 Instruction Type:Provider Instructions for Treatment [facility]; [facility] Work Phone: Instructions* Name Dates Details Patient Instructions Indication:Tobacco abuse, in remission Start:16-Jan-2023 Instruction Type:Provider Instructions for Treatment How to Access Health Informa tion Online using Patient Portal and [employer]rd [employer] Apps Indication:Tobacco abuse, in remission Start:16-Jan-2023 Instruction Type:Patient Education Patient Instructions Indication:BMI less than 19,adult Start:15-Feb-2022 Instruction Type:Provider Instructions for Treatment How to Access Health Informa tion Online using Patient Portal and [employer]rd [employer] Apps Indication:BMI less than 19,adult Start:15-Feb-2022 Instruction Type:Patient Education Patient Instructions Indication:Hypothyroid Start:15-Dec-2021 Instruction Type:Provider Instructions for Treatment How to Access Health Informa tion Online using Patient Portal and [employer]rd [employer] Apps Indication:Hypothyroid Start:15-Dec-2021 Instruction Type:Patient Education Patient Instructions Indication:Smoker Start:15-Aug-2021 Instruction Type:Provider Instructions for Treatment How to Access Health Informa tion Online using Patient Portal and [employer]rd [employer] Apps Indication:Smoker Start:15-Aug-2021 Instruction Type:Patient Education Patient Instructions Indication:BMI 20.0-20.9, adult Start:26-Jul-2021 Instruction Type:Provider Instructions for Treatment How to Access Health Informa tion Online using Patient Portal and [employer]rd [employer] Apps Indication:BMI 20.0-20.9, adult Start:26-Jul-2021 Instruction Type:Patient Education Patient Instructions Indication:Dry mouth Start:13-Mar-2021 Instruction Type:Provider Instructions for Treatment How to Access Health Informa tion Online using Patient Portal and [employer]rd [employer] Apps Indication:Dry mouth Start:13-Mar-2021 Instruction Type:Patient Education Patient Instructions Indication:B12 nutritional deficiency Start:02-Dec-2020 Instruction Type:Provider Instructions for Treatment How to Access Health Informa tion Online using Patient Portal and [employer]rd [employer] Apps Indication:Smoker Start:02-Dec-2020 Instruction Type:Patient Education Patient Instructions Indication:Hypothyroid Start:29-Aug-2020 Instruction Type:Provider Instructions for Treatment How to access health informa tion online Indication:BMI 23.0-23.9, adult Start:29-Aug-2020 Instruction Type:Patient Education How to access health informa tion online - Detail Indication:BMI 23.0-23.9, adult Start:29-Aug-2020 Instruction Type:Patient Education Patient Instructions Indication:BMI 23.0-23.9, adult Start:29-Aug-2020 Instruction Type:Provider Instructions for Treatment How to access health informa tion online Indication:Smoker Start:29-Jun-2020 Instruction Type:Patient Education How to access health informa tion online - Detail Indication:Smoker Start:29-Jun-2020 Instruction Type:Patient Education INSTRUCTIONS1 Indication:Smoker Start:29-Jun-2020 Instruction Type:Provider Instructions for Treatment How to access health informa tion online Indication:Smoker Start:14-Apr-2020 Instruction Type:Patient Education How to access health informa tion online - Detail Indication:Smoker Start:14-Apr-2020 Instruction Type:Patient Education Patient Instructions Indication:Smoker Start:14-Apr-2020 Instruction Type:Provider Instructions for Treatment How to access health informa tion online Indication:Smoker Start:14-Dec-2019 Instruction Type:Patient Education How to access health informa tion online - Detail Indication:Smoker Start:14-Dec-2019 Instruction Type:Patient Education Patient Instructions Indication:Smoker Start:14-Dec-2019 Instruction Type:Provider Instructions for Treatment How to access health informa tion online Indication:Smoker Start:02-Jan-2019 Instruction Type:Patient Education How to access health informa tion online - Detail Indication:Smoker Start:02-Jan-2019 Instruction Type:Patient Education Patient Instructions Indication:Smoker Start:02-Jan-2019 Instruction Type:Provider Instructions for Treatment How to access health informa tion online Indication:BMI 23.0-23.9, adult Start:15-Dec-2018 Instruction Type:Patient Education How to access health informa tion online - Detail Indication:BMI 23.0-23.9, adult Start:15-Dec-2018 Instruction Type:Patient Education Patient Instructions Indication:BMI 23.0-23.9, adult Start:15-Dec-2018 Instruction Type:Provider Instructions for Treatment [facility]; [facility] Work Phone: Instructions* Name Dates Details Patient Instructions Indication:Tobacco abuse, in remission Start:16-Jan-2023 Instruction Type:Provider Instructions for Treatment How to Access Health Informa tion Online using Patient Portal and [employer]rd [employer] Apps Indication:Tobacco abuse, in remission Start:16-Jan-2023 Instruction Type:Patient Education Patient Instructions Indication:BMI less than 19,adult Start:15-Feb-2022 Instruction Type:Provider Instructions for Treatment How to Access Health Informa tion Online using Patient Portal and [employer]rd [employer] Apps Indication:BMI less than 19,adult Start:15-Feb-2022 Instruction Type:Patient Education Patient Instructions Indication:Hypothyroid Start:15-Dec-2021 Instruction Type:Provider Instructions for Treatment How to Access Health Informa tion Online using Patient Portal and [employer]rd [employer] Apps Indication:Hypothyroid Start:15-Dec-2021 Instruction Type:Patient Education Patient Instructions Indication:Smoker Start:15-Aug-2021 Instruction Type:Provider Instructions for Treatment How to Access Health Informa tion Online using Patient Portal and [employer] Apps Indication:Smoker Start:15-Aug-2021 Instruction Type:Patient Education Patient Instructions Indication:BMI 20.0-20.9, adult Start:26-Jul-2021 Instruction Type:Provider Instructions for Treatment How to Access Health Informa tion Online using Patient Portal and [employer] Apps Indication:BMI 20.0-20.9, adult Start:26-Jul-2021 Instruction Type:Patient Education Patient Instructions Indication:Dry mouth Start:13-Mar-2021 Instruction Type:Provider Instructions for Treatment How to Access Health Informa tion Online using Patient Portal and [employer] Apps Indication:Dry mouth Start:13-Mar-2021 Instruction Type:Patient Education Patient Instructions Indication:B12 nutritional deficiency Start:02-Dec-2020 Instruction Type:Provider Instructions for Treatment How to Access Health Informa tion Online using Patient Portal and [employer] Apps Indication:Smoker Start:02-Dec-2020 Instruction Type:Patient Education Patient Instructions Indication:Hypothyroid Start:29-Aug-2020 Instruction Type:Provider Instructions for Treatment How to access health informa tion online Indication:BMI 23.0-23.9, adult Start:29-Aug-2020 Instruction Type:Patient Education How to access health informa tion online - Detail Indication:BMI 23.0-23.9, adult Start:29-Aug-2020 Instruction Type:Patient Education Patient Instructions Indication:BMI 23.0-23.9, adult Start:29-Aug-2020 Instruction Type:Provider Instructions for Treatment How to access health informa tion online Indication:Smoker Start:29-Jun-2020 Instruction Type:Patient Education How to access health informa tion online - Detail Indication:Smoker Start:29-Jun-2020 Instruction Type:Patient Education INSTRUCTIONS1 Indication:Smoker Start:29-Jun-2020 Instruction Type:Provider Instructions for Treatment How to access health informa tion online Indication:Smoker Start:14-Apr-2020 Instruction Type:Patient Education How to access health informa tion online - Detail Indication:Smoker Start:14-Apr-2020 Instruction Type:Patient Education Patient Instructions Indication:Smoker Start:14-Apr-2020 Instruction Type:Provider Instructions for Treatment How to access health informa tion online Indication:Smoker Start:14-Dec-2019 Instruction Type:Patient Education How to access health informa tion online - Detail Indication:Smoker Start:14-Dec-2019 Instruction Type:Patient Education Patient Instructions Indication:Smoker Start:14-Dec-2019 Instruction Type:Provider Instructions for Treatment How to access health informa tion online Indication:Smoker Start:02-Jan-2019 Instruction Type:Patient Education How to access health informa tion online - Detail Indication:Smoker Start:02-Jan-2019 Instruction Type:Patient Education Patient Instructions Indication:Smoker Start:02-Jan-2019 Instruction Type:Provider Instructions for Treatment How to access health informa tion online Indication:BMI 23.0-23.9, adult Start:15-Dec-2018 Instruction Type:Patient Education How to access health informa tion online - Detail Indication:BMI 23.0-23.9, adult Start:15-Dec-2018 Instruction Type:Patient Education Patient Instructions Indication:BMI 23.0-23.9, adult Start:15-Dec-2018 Instruction Type:Provider Instructions for Treatment [facility]; [facility] Work Phone: Instructions* Name Dates Details Patient Instructions Indication:Tobacco abuse, in remission Start:16-Jan-2023 Instruction Type:Provider Instructions for Treatment How to Access Health Informa tion Online using Patient Portal and [employer] Apps Indication:Tobacco abuse, in remission Start:16-Jan-2023 Instruction Type:Patient Education Patient Instructions Indication:BMI less than 19,adult Start:15-Feb-2022 Instruction Type:Provider Instructions for Treatment How to Access Health Informa tion Online using Patient Portal and [employer] Apps Indication:BMI less than 19,adult Start:15-Feb-2022 Instruction Type:Patient Education Patient Instructions Indication:Hypothyroid Start:15-Dec-2021 Instruction Type:Provider Instructions for Treatment How to Access Health Informa tion Online using Patient Portal and [employer] Apps Indication:Hypothyroid Start:15-Dec-2021 Instruction Type:Patient Education Patient Instructions Indication:Smoker Start:15-Aug-2021 Instruction Type:Provider Instructions for Treatment How to Access Health Informa tion Online using Patient Portal and [employer] Apps Indication:Smoker Start:15-Aug-2021 Instruction Type:Patient Education Patient Instructions Indication:BMI 20.0-20.9, adult Start:26-Jul-2021 Instruction Type:Provider Instructions for Treatment How to Access Health Informa tion Online using Patient Portal and [employer] Apps Indication:BMI 20.0-20.9, adult Start:26-Jul-2021 Instruction Type:Patient Education Patient Instructions Indication:Dry mouth Start:13-Mar-2021 Instruction Type:Provider Instructions for Treatment How to Access Health Informa tion Online using Patient Portal and [employer] Apps Indication:Dry mouth Start:13-Mar-2021 Instruction Type:Patient Education Patient Instructions Indication:B12 nutritional deficiency Start:02-Dec-2020 Instruction Type:Provider Instructions for Treatment How to Access Health Informa tion Online using Patient Portal and [employer] Apps Indication:Smoker Start:02-Dec-2020 Instruction Type:Patient Education Patient Instructions Indication:Hypothyroid Start:29-Aug-2020 Instruction Type:Provider Instructions for Treatment How to access health informa tion online Indication:BMI 23.0-23.9, adult Start:29-Aug-2020 Instruction Type:Patient Education How to access health informa tion online - Detail Indication:BMI 23.0-23.9, adult Start:29-Aug-2020 Instruction Type:Patient Education Patient Instructions Indication:BMI 23.0-23.9, adult Start:29-Aug-2020 Instruction Type:Provider Instructions for Treatment How to access health informa tion online Indication:Smoker Start:29-Jun-2020 Instruction Type:Patient Education How to access health informa tion online - Detail Indication:Smoker Start:29-Jun-2020 Instruction Type:Patient Education INSTRUCTIONS1 Indication:Smoker Start:29-Jun-2020 Instruction Type:Provider Instructions for Treatment How to access health informa tion online Indication:Smoker Start:14-Apr-2020 Instruction Type:Patient Education How to access health informa tion online - Detail Indication:Smoker Start:14-Apr-2020 Instruction Type:Patient Education Patient Instructions Indication:Smoker Start:14-Apr-2020 Instruction Type:Provider Instructions for Treatment How to access health informa tion online Indication:Smoker Start:14-Dec-2019 Instruction Type:Patient Education How to access health informa tion online - Detail Indication:Smoker Start:14-Dec-2019 Instruction Type:Patient Education Patient Instructions Indication:Smoker Start:14-Dec-2019 Instruction Type:Provider Instructions for Treatment How to access health informa tion online Indication:Smoker Start:02-Jan-2019 Instruction Type:Patient Education How to access health informa tion online - Detail Indication:Smoker Start:02-Jan-2019 Instruction Type:Patient Education Patient Instructions Indication:Smoker Start:02-Jan-2019 Instruction Type:Provider Instructions for Treatment How to access health informa tion online Indication:BMI 23.0-23.9, adult Start:15-Dec-2018 Instruction Type:Patient Education How to access health informa tion online - Detail Indication:BMI 23.0-23.9, adult Start:15-Dec-2018 Instruction Type:Patient Education Patient Instructions Indication:BMI 23.0-23.9, adult Start:15-Dec-2018 Instruction Type:Provider Instructions for Treatment [facility]; [facility] Work Phone: Instructions* Name Dates Details Patient Instructions Indication:Tobacco abuse, in remission Start:16-Jan-2023 Instruction Type:Provider Instructions for Treatment How to Access Health Informa tion Online using Patient Portal and [employer] Apps Indication:Tobacco abuse, in remission Start:16-Jan-2023 Instruction Type:Patient Education Patient Instructions Indication:BMI less than 19,adult Start:15-Feb-2022 Instruction Type:Provider Instructions for Treatment How to Access Health Informa tion Online using Patient Portal and [employer] Apps Indication:BMI less than 19,adult Start:15-Feb-2022 Instruction Type:Patient Education Patient Instructions Indication:Hypothyroid Start:15-Dec-2021 Instruction Type:Provider Instructions for Treatment How to Access Health Informa tion Online using Patient Portal and [employer] Apps Indication:Hypothyroid Start:15-Dec-2021 Instruction Type:Patient Education Patient Instructions Indication:Smoker Start:15-Aug-2021 Instruction Type:Provider Instructions for Treatment How to Access Health Informa tion Online using Patient Portal and [employer] Apps Indication:Smoker Start:15-Aug-2021 Instruction Type:Patient Education Patient Instructions Indication:BMI 20.0-20.9, adult Start:26-Jul-2021 Instruction Type:Provider Instructions for Treatment How to Access Health Informa tion Online using Patient Portal and [employer] Apps Indication:BMI 20.0-20.9, adult Start:26-Jul-2021 Instruction Type:Patient Education Patient Instructions Indication:Dry mouth Start:13-Mar-2021 Instruction Type:Provider Instructions for Treatment How to Access Health Informa tion Online using Patient Portal and [employer] Apps Indication:Dry mouth Start:13-Mar-2021 Instruction Type:Patient Education Patient Instructions Indication:B12 nutritional deficiency Start:02-Dec-2020 Instruction Type:Provider Instructions for Treatment How to Access Health Informa tion Online using Patient Portal and [employer] Apps Indication:Smoker Start:02-Dec-2020 Instruction Type:Patient Education Patient Instructions Indication:Hypothyroid Start:29-Aug-2020 Instruction Type:Provider Instructions for Treatment How to access health informa tion online Indication:BMI 23.0-23.9, adult Start:29-Aug-2020 Instruction Type:Patient Education How to access health informa tion online - Detail Indication:BMI 23.0-23.9, adult Start:29-Aug-2020 Instruction Type:Patient Education Patient Instructions Indication:BMI 23.0-23.9, adult Start:29-Aug-2020 Instruction Type:Provider Instructions for Treatment How to access health informa tion online Indication:Smoker Start:29-Jun-2020 Instruction Type:Patient Education How to access health informa tion online - Detail Indication:Smoker Start:29-Jun-2020 Instruction Type:Patient Education INSTRUCTIONS1 Indication:Smoker Start:29-Jun-2020 Instruction Type:Provider Instructions for Treatment How to access health informa tion online Indication:Smoker Start:14-Apr-2020 Instruction Type:Patient Education How to access health informa tion online - Detail Indication:Smoker Start:14-Apr-2020 Instruction Type:Patient Education Patient Instructions Indication:Smoker Start:14-Apr-2020 Instruction Type:Provider Instructions for Treatment How to access health informa tion online Indication:Smoker Start:14-Dec-2019 Instruction Type:Patient Education How to access health informa tion online - Detail Indication:Smoker Start:14-Dec-2019 Instruction Type:Patient Education Patient Instructions Indication:Smoker Start:14-Dec-2019 Instruction Type:Provider Instructions for Treatment How to access health informa tion online Indication:Smoker Start:02-Jan-2019 Instruction Type:Patient Education How to access health informa tion online - Detail Indication:Smoker Start:02-Jan-2019 Instruction Type:Patient Education Patient Instructions Indication:Smoker Start:02-Jan-2019 Instruction Type:Provider Instructions for Treatment How to access health informa tion online Indication:BMI 23.0-23.9, adult Start:15-Dec-2018 Instruction Type:Patient Education How to access health informa tion online - Detail Indication:BMI 23.0-23.9, adult Start:15-Dec-2018 Instruction Type:Patient Education Patient Instructions Indication:BMI 23.0-23.9, adult Start:15-Dec-2018 Instruction Type:Provider Instructions for Treatment [facility]; [facility] Work Phone: Instructions* Name Dates Details Patient Instructions Indication:BMI 20.0-20.9, adult Start:22-Jul-2023 Instruction Type:Provider Instructions for Treatment How to Access Health Informa tion Online using Patient Portal and [employer] Apps Indication:BMI 20.0-20.9, adult Start:22-Jul-2023 Instruction Type:Patient Education Patient Instructions Indication:Tobacco abuse, in remission Start:16-Jan-2023 Instruction Type:Provider Instructions for Treatment How to Access Health Informa tion Online using Patient Portal and [employer] Apps Indication:Tobacco abuse, in remission Start:16-Jan-2023 Instruction Type:Patient Education Patient Instructions Indication:BMI less than 19,adult Start:15-Feb-2022 Instruction Type:Provider Instructions for Treatment How to Access Health Informa tion Online using Patient Portal and [employer] Apps Indication:BMI less than 19,adult Start:15-Feb-2022 Instruction Type:Patient Education Patient Instructions Indication:Hypothyroid Start:15-Dec-2021 Instruction Type:Provider Instructions for Treatment How to Access Health Informa tion Online using Patient Portal and [employer] Apps Indication:Hypothyroid Start:15-Dec-2021 Instruction Type:Patient Education Patient Instructions Indication:Smoker Start:15-Aug-2021 Instruction Type:Provider Instructions for Treatment How to Access Health Informa tion Online using Patient Portal and [employer] Apps Indication:Smoker Start:15-Aug-2021 Instruction Type:Patient Education Patient Instructions Indication:BMI 20.0-20.9, adult Start:26-Jul-2021 Instruction Type:Provider Instructions for Treatment How to Access Health Informa tion Online using Patient Portal and [employer] Apps Indication:BMI 20.0-20.9, adult Start:26-Jul-2021 Instruction Type:Patient Education Patient Instructions Indication:Dry mouth Start:13-Mar-2021 Instruction Type:Provider Instructions for Treatment How to Access Health Informa tion Online using Patient Portal and [employer] Apps Indication:Dry mouth Start:13-Mar-2021 Instruction Type:Patient Education Patient Instructions Indication:B12 nutritional deficiency Start:02-Dec-2020 Instruction Type:Provider Instructions for Treatment How to Access Health Informa tion Online using Patient Portal and [employer] Apps Indication:Smoker Start:02-Dec-2020 Instruction Type:Patient Education Patient Instructions Indication:Hypothyroid Start:29-Aug-2020 Instruction Type:Provider Instructions for Treatment How to access health informa tion online Indication:BMI 23.0-23.9, adult Start:29-Aug-2020 Instruction Type:Patient Education How to access health informa tion online - Detail Indication:BMI 23.0-23.9, adult Start:29-Aug-2020 Instruction Type:Patient Education Patient Instructions Indication:BMI 23.0-23.9, adult Start:29-Aug-2020 Instruction Type:Provider Instructions for Treatment How to access health informa tion online Indication:Smoker Start:29-Jun-2020 Instruction Type:Patient Education How to access health informa tion online - Detail Indication:Smoker Start:29-Jun-2020 Instruction Type:Patient Education INSTRUCTIONS1 Indication:Smoker Start:29-Jun-2020 Instruction Type:Provider Instructions for Treatment How to access health informa tion online Indication:Smoker Start:14-Apr-2020 Instruction Type:Patient Education How to access health informa tion online - Detail Indication:Smoker Start:14-Apr-2020 Instruction Type:Patient Education Patient Instructions Indication:Smoker Start:14-Apr-2020 Instruction Type:Provider Instructions for Treatment How to access health informa tion online Indication:Smoker Start:14-Dec-2019 Instruction Type:Patient Education How to access health informa tion online - Detail Indication:Smoker Start:14-Dec-2019 Instruction Type:Patient Education Patient Instructions Indication:Smoker Start:14-Dec-2019 Instruction Type:Provider Instructions for Treatment How to access health informa tion online Indication:Smoker Start:02-Jan-2019 Instruction Type:Patient Education How to access health informa tion online - Detail Indication:Smoker Start:02-Jan-2019 Instruction Type:Patient Education Patient Instructions Indication:Smoker Start:02-Jan-2019 Instruction Type:Provider Instructions for Treatment How to access health informa tion online Indication:BMI 23.0-23.9, adult Start:15-Dec-2018 Instruction Type:Patient Education How to access health informa tion online - Detail Indication:BMI 23.0-23.9, adult Start:15-Dec-2018 Instruction Type:Patient Education Patient Instructions Indication:BMI 23.0-23.9, adult Start:15-Dec-2018 Instruction Type:Provider Instructions for Treatment [facility] Work Phone: reason for referral (narrative)* Reason for Referral: [facility]No reason for referral information available[facility] Work Phone: Instructions Name Dates Details BMI 23.0-23.9, adult : How t o access health information online Indication:BMI 23.0-23.9, adult BMI 23.0-23.9, adult : How t o access health information online - Detail Indication:BMI 23.0-23.9, adult BMI 23.0-23.9, adult : Patie nt Instructions Indication:BMI 23.0-23.9, adult Name Dates Details Smoker : How to access healt h information online Indication:Smoker Smoker : How to access healt h information online - Detail Indication:Smoker Smoker : Patient Instruction s Indication:Smoker BMI 23.0-23.9, adult : How t o access health information online Indication:BMI 23.0-23.9, adult BMI 23.0-23.9, adult : How t o access health information online - Detail Indication:BMI 23.0-23.9, adult BMI 23.0-23.9, adult : Patie nt Instructions Indication:BMI 23.0-23.9, adult Name Dates Details Smoker : How to access healt h information online Indication:Smoker Smoker : How to access healt h information online - Detail Indication:Smoker Smoker : Patient Instruction s Indication:Smoker BMI 23.0-23.9, adult : How t o access health information online Indication:BMI 23.0-23.9, adult BMI 23.0-23.9, adult : How t o access health information online - Detail Indication:BMI 23.0-23.9, adult BMI 23.0-23.9, adult : Patie nt Instructions Indication:BMI 23.0-23.9, adult Name Dates Details Smoker : How to access healt h information online Indication:Smoker Smoker : How to access healt h information online - Detail Indication:Smoker Smoker : Patient Instruction s Indication:Smoker BMI 23.0-23.9, adult : How t o access health information online Indication:BMI 23.0-23.9, adult BMI 23.0-23.9, adult : How t o access health information online - Detail Indication:BMI 23.0-23.9, adult BMI 23.0-23.9, adult : Patie nt Instructions Indication:BMI 23.0-23.9, adult Name Dates Details Smoker : How to access healt h information online Indication:Smoker Smoker : How to access healt h information online - Detail Indication:Smoker Smoker : Patient Instruction s Indication:Smoker BMI 23.0-23.9, adult : How t o access health information online Indication:BMI 23.0-23.9, adult BMI 23.0-23.9, adult : How t o access health information online - Detail Indication:BMI 23.0-23.9, adult BMI 23.0-23.9, adult : Patie nt Instructions Indication:BMI 23.0-23.9, adult Name Dates Details Instructions not documented Name Dates Details How to access health informa tion online Indication:Smoker Start:02-Jan-2019 Instruction Type:Patient Education How to access health informa tion online - Detail Indication:Smoker Start:02-Jan-2019 Instruction Type:Patient Education Patient Instructions Indication:Smoker Start:02-Jan-2019 Instruction Type:Provider Instructions for Treatment How to access health informa tion online Indication:BMI 23.0-23.9, adult Start:15-Dec-2018 Instruction Type:Patient Education How to access health informa tion online - Detail Indication:BMI 23.0-23.9, adult Start:15-Dec-2018 Instruction Type:Patient Education Patient Instructions Indication:BMI 23.0-23.9, adult Start:15-Dec-2018 Instruction Type:Provider Instructions for Treatment Name Dates Details How to access health informa tion online Indication:Smoker Start:02-Jan-2019 Instruction Type:Patient Education How to access health informa tion online - Detail Indication:Smoker Start:02-Jan-2019 Instruction Type:Patient Education Patient Instructions Indication:Smoker Start:02-Jan-2019 Instruction Type:Provider Instructions for Treatment How to access health informa tion online Indication:BMI 23.0-23.9, adult Start:15-Dec-2018 Instruction Type:Patient Education How to access health informa tion online - Detail Indication:BMI 23.0-23.9, adult Start:15-Dec-2018 Instruction Type:Patient Education Patient Instructions Indication:BMI 23.0-23.9, adult Start:15-Dec-2018 Instruction Type:Provider Instructions for Treatment Name Dates Details How to access health informa tion online Indication:Smoker Start:02-Jan-2019 Instruction Type:Patient Education How to access health informa tion online - Detail Indication:Smoker Start:02-Jan-2019 Instruction Type:Patient Education Patient Instructions Indication:Smoker Start:02-Jan-2019 Instruction Type:Provider Instructions for Treatment How to access health informa tion online Indication:BMI 23.0-23.9, adult Start:15-Dec-2018 Instruction Type:Patient Education How to access health informa tion online - Detail Indication:BMI 23.0-23.9, adult Start:15-Dec-2018 Instruction Type:Patient Education Patient Instructions Indication:BMI 23.0-23.9, adult Start:15-Dec-2018 Instruction Type:Provider Instructions for Treatment Name Dates Details How to access health informa tion online Indication:Smoker Start:02-Jan-2019 Instruction Type:Patient Education How to access health informa tion online - Detail Indication:Smoker Start:02-Jan-2019 Instruction Type:Patient Education Patient Instructions Indication:Smoker Start:02-Jan-2019 Instruction Type:Provider Instructions for Treatment How to access health informa tion online Indication:BMI 23.0-23.9, adult Start:15-Dec-2018 Instruction Type:Patient Education How to access health informa tion online - Detail Indication:BMI 23.0-23.9, adult Start:15-Dec-2018 Instruction Type:Patient Education Patient Instructions Indication:BMI 23.0-23.9, adult Start:15-Dec-2018 Instruction Type:Provider Instructions for Treatment Name Dates Details Instructions not documented Name Dates Details How to access health informa tion online Indication:Smoker Start:14-Apr-2020 Instruction Type:Patient Education How to access health informa tion online - Detail Indication:Smoker Start:14-Apr-2020 Instruction Type:Patient Education Patient Instructions Indication:Smoker Start:14-Apr-2020 Instruction Type:Provider Instructions for Treatment How to access health informa tion online Indication:Smoker Start:14-Dec-2019 Instruction Type:Patient Education How to access health informa tion online - Detail Indication:Smoker Start:14-Dec-2019 Instruction Type:Patient Education Patient Instructions Indication:Smoker Start:14-Dec-2019 Instruction Type:Provider Instructions for Treatment How to access health informa tion online Indication:Smoker Start:02-Jan-2019 Instruction Type:Patient Education How to access health informa tion online - Detail Indication:Smoker Start:02-Jan-2019 Instruction Type:Patient Education Patient Instructions Indication:Smoker Start:02-Jan-2019 Instruction Type:Provider Instructions for Treatment How to access health informa tion online Indication:BMI 23.0-23.9, adult Start:15-Dec-2018 Instruction Type:Patient Education How to access health informa tion online - Detail Indication:BMI 23.0-23.9, adult Start:15-Dec-2018 Instruction Type:Patient Education Patient Instructions Indication:BMI 23.0-23.9, adult Start:15-Dec-2018 Instruction Type:Provider Instructions for Treatment Name Dates Details How to access health informa tion online Indication:Smoker Start:14-Apr-2020 Instruction Type:Patient Education How to access health informa tion online - Detail Indication:Smoker Start:14-Apr-2020 Instruction Type:Patient Education Patient Instructions Indication:Smoker Start:14-Apr-2020 Instruction Type:Provider Instructions for Treatment How to access health informa tion online Indication:Smoker Start:14-Dec-2019 Instruction Type:Patient Education How to access health informa tion online - Detail Indication:Smoker Start:14-Dec-2019 Instruction Type:Patient Education Patient Instructions Indication:Smoker Start:14-Dec-2019 Instruction Type:Provider Instructions for Treatment How to access health informa tion online Indication:Smoker Start:02-Jan-2019 Instruction Type:Patient Education How to access health informa tion online - Detail Indication:Smoker Start:02-Jan-2019 Instruction Type:Patient Education Patient Instructions Indication:Smoker Start:02-Jan-2019 Instruction Type:Provider Instructions for Treatment How to access health informa tion online Indication:BMI 23.0-23.9, adult Start:15-Dec-2018 Instruction Type:Patient Education How to access health informa tion online - Detail Indication:BMI 23.0-23.9, adult Start:15-Dec-2018 Instruction Type:Patient Education Patient Instructions Indication:BMI 23.0-23.9, adult Start:15-Dec-2018 Instruction Type:Provider Instructions for Treatment Name Dates Details How to access health informa tion online Indication:Smoker Start:14-Apr-2020 Instruction Type:Patient Education How to access health informa tion online - Detail Indication:Smoker Start:14-Apr-2020 Instruction Type:Patient Education Patient Instructions Indication:Smoker Start:14-Apr-2020 Instruction Type:Provider Instructions for Treatment How to access health informa tion online Indication:Smoker Start:14-Dec-2019 Instruction Type:Patient Education How to access health informa tion online - Detail Indication:Smoker Start:14-Dec-2019 Instruction Type:Patient Education Patient Instructions Indication:Smoker Start:14-Dec-2019 Instruction Type:Provider Instructions for Treatment How to access health informa tion online Indication:Smoker Start:02-Jan-2019 Instruction Type:Patient Education How to access health informa tion online - Detail Indication:Smoker Start:02-Jan-2019 Instruction Type:Patient Education Patient Instructions Indication:Smoker Start:02-Jan-2019 Instruction Type:Provider Instructions for Treatment How to access health informa tion online Indication:BMI 23.0-23.9, adult Start:15-Dec-2018 Instruction Type:Patient Education How to access health informa tion online - Detail Indication:BMI 23.0-23.9, adult Start:15-Dec-2018 Instruction Type:Patient Education Patient Instructions Indication:BMI 23.0-23.9, adult Start:15-Dec-2018 Instruction Type:Provider Instructions for Treatment Name Dates Details How to access health informa tion online Indication:Smoker Start:14-Apr-2020 Instruction Type:Patient Education How to access health informa tion online - Detail Indication:Smoker Start:14-Apr-2020 Instruction Type:Patient Education Patient Instructions Indication:Smoker Start:14-Apr-2020 Instruction Type:Provider Instructions for Treatment How to access health informa tion online Indication:Smoker Start:14-Dec-2019 Instruction Type:Patient Education How to access health informa tion online - Detail Indication:Smoker Start:14-Dec-2019 Instruction Type:Patient Education Patient Instructions Indication:Smoker Start:14-Dec-2019 Instruction Type:Provider Instructions for Treatment How to access health informa tion online Indication:Smoker Start:02-Jan-2019 Instruction Type:Patient Education How to access health informa tion online - Detail Indication:Smoker Start:02-Jan-2019 Instruction Type:Patient Education Patient Instructions Indication:Smoker Start:02-Jan-2019 Instruction Type:Provider Instructions for Treatment How to access health informa tion online Indication:BMI 23.0-23.9, adult Start:15-Dec-2018 Instruction Type:Patient Education How to access health informa tion online - Detail Indication:BMI 23.0-23.9, adult Start:15-Dec-2018 Instruction Type:Patient Education Patient Instructions Indication:BMI 23.0-23.9, adult Start:15-Dec-2018 Instruction Type:Provider Instructions for Treatment Name Dates Details How to access health informa tion online Indication:Smoker Start:29-Jun-2020 Instruction Type:Patient Education How to access health informa tion online - Detail Indication:Smoker Start:29-Jun-2020 Instruction Type:Patient Education INSTRUCTIONS1 Indication:Smoker Start:29-Jun-2020 Instruction Type:Provider Instructions for Treatment How to access health informa tion online Indication:Smoker Start:14-Apr-2020 Instruction Type:Patient Education How to access health informa tion online - Detail Indication:Smoker Start:14-Apr-2020 Instruction Type:Patient Education Patient Instructions Indication:Smoker Start:14-Apr-2020 Instruction Type:Provider Instructions for Treatment How to access health informa tion online Indication:Smoker Start:14-Dec-2019 Instruction Type:Patient Education How to access health informa tion online - Detail Indication:Smoker Start:14-Dec-2019 Instruction Type:Patient Education Patient Instructions Indication:Smoker Start:14-Dec-2019 Instruction Type:Provider Instructions for Treatment How to access health informa tion online Indication:Smoker Start:02-Jan-2019 Instruction Type:Patient Education How to access health informa tion online - Detail Indication:Smoker Start:02-Jan-2019 Instruction Type:Patient Education Patient Instructions Indication:Smoker Start:02-Jan-2019 Instruction Type:Provider Instructions for Treatment How to access health informa tion online Indication:BMI 23.0-23.9, adult Start:15-Dec-2018 Instruction Type:Patient Education How to access health informa tion online - Detail Indication:BMI 23.0-23.9, adult Start:15-Dec-2018 Instruction Type:Patient Education Patient Instructions Indication:BMI 23.0-23.9, adult Start:15-Dec-2018 Instruction Type:Provider Instructions for Treatment Name Dates Details How to access health informa tion online Indication:Smoker Start:29-Jun-2020 Instruction Type:Patient Education How to access health informa tion online - Detail Indication:Smoker Start:29-Jun-2020 Instruction Type:Patient Education INSTRUCTIONS1 Indication:Smoker Start:29-Jun-2020 Instruction Type:Provider Instructions for Treatment How to access health informa tion online Indication:Smoker Start:14-Apr-2020 Instruction Type:Patient Education How to access health informa tion online - Detail Indication:Smoker Start:14-Apr-2020 Instruction Type:Patient Education Patient Instructions Indication:Smoker Start:14-Apr-2020 Instruction Type:Provider Instructions for Treatment How to access health informa tion online Indication:Smoker Start:14-Dec-2019 Instruction Type:Patient Education How to access health informa tion online - Detail Indication:Smoker Start:14-Dec-2019 Instruction Type:Patient Education Patient Instructions Indication:Smoker Start:14-Dec-2019 Instruction Type:Provider Instructions for Treatment How to access health informa tion online Indication:Smoker Start:02-Jan-2019 Instruction Type:Patient Education How to access health informa tion online - Detail Indication:Smoker Start:02-Jan-2019 Instruction Type:Patient Education Patient Instructions Indication:Smoker Start:02-Jan-2019 Instruction Type:Provider Instructions for Treatment How to access health informa tion online Indication:BMI 23.0-23.9, adult Start:15-Dec-2018 Instruction Type:Patient Education How to access health informa tion online - Detail Indication:BMI 23.0-23.9, adult Start:15-Dec-2018 Instruction Type:Patient Education Patient Instructions Indication:BMI 23.0-23.9, adult Start:15-Dec-2018 Instruction Type:Provider Instructions for Treatment Name Dates Details Patient Instructions Indication:Hypothyroid Start:29-Aug-2020 Instruction Type:Provider Instructions for Treatment How to access health informa tion online Indication:BMI 23.0-23.9, adult Start:29-Aug-2020 Instruction Type:Patient Education How to access health informa tion online - Detail Indication:BMI 23.0-23.9, adult Start:29-Aug-2020 Instruction Type:Patient Education Patient Instructions Indication:BMI 23.0-23.9, adult Start:29-Aug-2020 Instruction Type:Provider Instructions for Treatment How to access health informa tion online Indication:Smoker Start:29-Jun-2020 Instruction Type:Patient Education How to access health informa tion online - Detail Indication:Smoker Start:29-Jun-2020 Instruction Type:Patient Education INSTRUCTIONS1 Indication:Smoker Start:29-Jun-2020 Instruction Type:Provider Instructions for Treatment How to access health informa tion online Indication:Smoker Start:14-Apr-2020 Instruction Type:Patient Education How to access health informa tion online - Detail Indication:Smoker Start:14-Apr-2020 Instruction Type:Patient Education Patient Instructions Indication:Smoker Start:14-Apr-2020 Instruction Type:Provider Instructions for Treatment How to access health informa tion online Indication:Smoker Start:14-Dec-2019 Instruction Type:Patient Education How to access health informa tion online - Detail Indication:Smoker Start:14-Dec-2019 Instruction Type:Patient Education Patient Instructions Indication:Smoker Start:14-Dec-2019 Instruction Type:Provider Instructions for Treatment How to access health informa tion online Indication:Smoker Start:02-Jan-2019 Instruction Type:Patient Education How to access health informa tion online - Detail Indication:Smoker Start:02-Jan-2019 Instruction Type:Patient Education Patient Instructions Indication:Smoker Start:02-Jan-2019 Instruction Type:Provider Instructions for Treatment How to access health informa tion online Indication:BMI 23.0-23.9, adult Start:15-Dec-2018 Instruction Type:Patient Education How to access health informa tion online - Detail Indication:BMI 23.0-23.9, adult Start:15-Dec-2018 Instruction Type:Patient Education Patient Instructions Indication:BMI 23.0-23.9, adult Start:15-Dec-2018 Instruction Type:Provider Instructions for Treatment Name Dates Details Patient Instructions Indication:Hypothyroid Start:29-Aug-2020 Instruction Type:Provider Instructions for Treatment How to access health informa tion online Indication:BMI 23.0-23.9, adult Start:29-Aug-2020 Instruction Type:Patient Education How to access health informa tion online - Detail Indication:BMI 23.0-23.9, adult Start:29-Aug-2020 Instruction Type:Patient Education Patient Instructions Indication:BMI 23.0-23.9, adult Start:29-Aug-2020 Instruction Type:Provider Instructions for Treatment How to access health informa tion online Indication:Smoker Start:29-Jun-2020 Instruction Type:Patient Education How to access health informa tion online - Detail Indication:Smoker Start:29-Jun-2020 Instruction Type:Patient Education INSTRUCTIONS1 Indication:Smoker Start:29-Jun-2020 Instruction Type:Provider Instructions for Treatment How to access health informa tion online Indication:Smoker Start:14-Apr-2020 Instruction Type:Patient Education How to access health informa tion online - Detail Indication:Smoker Start:14-Apr-2020 Instruction Type:Patient Education Patient Instructions Indication:Smoker Start:14-Apr-2020 Instruction Type:Provider Instructions for Treatment How to access health informa tion online Indication:Smoker Start:14-Dec-2019 Instruction Type:Patient Education How to access health informa tion online - Detail Indication:Smoker Start:14-Dec-2019 Instruction Type:Patient Education Patient Instructions Indication:Smoker Start:14-Dec-2019 Instruction Type:Provider Instructions for Treatment How to access health informa tion online Indication:Smoker Start:02-Jan-2019 Instruction Type:Patient Education How to access health informa tion online - Detail Indication:Smoker Start:02-Jan-2019 Instruction Type:Patient Education Patient Instructions Indication:Smoker Start:02-Jan-2019 Instruction Type:Provider Instructions for Treatment How to access health informa tion online Indication:BMI 23.0-23.9, adult Start:15-Dec-2018 Instruction Type:Patient Education How to access health informa tion online - Detail Indication:BMI 23.0-23.9, adult Start:15-Dec-2018 Instruction Type:Patient Education Patient Instructions Indication:BMI 23.0-23.9, adult Start:15-Dec-2018 Instruction Type:Provider Instructions for Treatment Name Dates Details Patient Instructions Indication:Hypothyroid Start:29-Aug-2020 Instruction Type:Provider Instructions for Treatment How to access health informa tion online Indication:BMI 23.0-23.9, adult Start:29-Aug-2020 Instruction Type:Patient Education How to access health informa tion online - Detail Indication:BMI 23.0-23.9, adult Start:29-Aug-2020 Instruction Type:Patient Education Patient Instructions Indication:BMI 23.0-23.9, adult Start:29-Aug-2020 Instruction Type:Provider Instructions for Treatment How to access health informa tion online Indication:Smoker Start:29-Jun-2020 Instruction Type:Patient Education How to access health informa tion online - Detail Indication:Smoker Start:29-Jun-2020 Instruction Type:Patient Education INSTRUCTIONS1 Indication:Smoker Start:29-Jun-2020 Instruction Type:Provider Instructions for Treatment How to access health informa tion online Indication:Smoker Start:14-Apr-2020 Instruction Type:Patient Education How to access health informa tion online - Detail Indication:Smoker Start:14-Apr-2020 Instruction Type:Patient Education Patient Instructions Indication:Smoker Start:14-Apr-2020 Instruction Type:Provider Instructions for Treatment How to access health informa tion online Indication:Smoker Start:14-Dec-2019 Instruction Type:Patient Education How to access health informa tion online - Detail Indication:Smoker Start:14-Dec-2019 Instruction Type:Patient Education Patient Instructions Indication:Smoker Start:14-Dec-2019 Instruction Type:Provider Instructions for Treatment How to access health informa tion online Indication:Smoker Start:02-Jan-2019 Instruction Type:Patient Education How to access health informa tion online - Detail Indication:Smoker Start:02-Jan-2019 Instruction Type:Patient Education Patient Instructions Indication:Smoker Start:02-Jan-2019 Instruction Type:Provider Instructions for Treatment How to access health informa tion online Indication:BMI 23.0-23.9, adult Start:15-Dec-2018 Instruction Type:Patient Education How to access health informa tion online - Detail Indication:BMI 23.0-23.9, adult Start:15-Dec-2018 Instruction Type:Patient Education Patient Instructions Indication:BMI 23.0-23.9, adult Start:15-Dec-2018 Instruction Type:Provider Instructions for Treatment Name Dates Details Patient Instructions Indication:B12 nutritional deficiency Start:02-Dec-2020 Instruction Type:Provider Instructions for Treatment How to Access Health Informa tion Online using Patient Portal and [employer] Apps Indication:Smoker Start:02-Dec-2020 Instruction Type:Patient Education Patient Instructions Indication:Hypothyroid Start:29-Aug-2020 Instruction Type:Provider Instructions for Treatment How to access health informa tion online Indication:BMI 23.0-23.9, adult Start:29-Aug-2020 Instruction Type:Patient Education How to access health informa tion online - Detail Indication:BMI 23.0-23.9, adult Start:29-Aug-2020 Instruction Type:Patient Education Patient Instructions Indication:BMI 23.0-23.9, adult Start:29-Aug-2020 Instruction Type:Provider Instructions for Treatment How to access health informa tion online Indication:Smoker Start:29-Jun-2020 Instruction Type:Patient Education How to access health informa tion online - Detail Indication:Smoker Start:29-Jun-2020 Instruction Type:Patient Education INSTRUCTIONS1 Indication:Smoker Start:29-Jun-2020 Instruction Type:Provider Instructions for Treatment How to access health informa tion online Indication:Smoker Start:14-Apr-2020 Instruction Type:Patient Education How to access health informa tion online - Detail Indication:Smoker Start:14-Apr-2020 Instruction Type:Patient Education Patient Instructions Indication:Smoker Start:14-Apr-2020 Instruction Type:Provider Instructions for Treatment How to access health informa tion online Indication:Smoker Start:14-Dec-2019 Instruction Type:Patient Education How to access health informa tion online - Detail Indication:Smoker Start:14-Dec-2019 Instruction Type:Patient Education Patient Instructions Indication:Smoker Start:14-Dec-2019 Instruction Type:Provider Instructions for Treatment How to access health informa tion online Indication:Smoker Start:02-Jan-2019 Instruction Type:Patient Education How to access health informa tion online - Detail Indication:Smoker Start:02-Jan-2019 Instruction Type:Patient Education Patient Instructions Indication:Smoker Start:02-Jan-2019 Instruction Type:Provider Instructions for Treatment How to access health informa tion online Indication:BMI 23.0-23.9, adult Start:15-Dec-2018 Instruction Type:Patient Education How to access health informa tion online - Detail Indication:BMI 23.0-23.9, adult Start:15-Dec-2018 Instruction Type:Patient Education Patient Instructions Indication:BMI 23.0-23.9, adult Start:15-Dec-2018 Instruction Type:Provider Instructions for Treatment Name Dates Details BMI 23.0-23.9, adult : How t o access health information online Indication:BMI 23.0-23.9, adult BMI 23.0-23.9, adult : How t o access health information online - Detail Indication:BMI 23.0-23.9, adult BMI 23.0-23.9, adult : Patie nt Instructions Indication:BMI 23.0-23.9, adult Family History No Family History Records FoundUnknown Family Member Name Dates Details Family history of cerebrovas cular accident (CVA): Mother(V17.1, Z82.3) Status:Active Mother Name Dates Details Family history of cerebrovas cular accident (CVA)(V17.1, Z82.3) Status:Active Chief Complaint SCCa of oral cavitySCCa of oral cavitySCCa of oral cavitySCCa of oral cavitySCCa of oral cavitySCCa of oral cavitypost oppost op 11/10/21post opED follow upED follow upcancer follow upcancer follow upcancer follow upcancer follow upwound checkwound checkwound checkfollow up visitfollow uptrach changetrach changetrach changeHearing loss after chemo.Hearing aid evaluation.Hearing aid fitting. Hearing aid check. 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 Head and neck cancer Lung nodules Regional lymph node metastasis present Anemia Cancer related pain Dehydration Chief Complaint wound/HYPERBARIC O2 TX wound EVAL FOR RADIATION NECROSIS OF MANDIBLE 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 HEAD/NECK CA NEEDS SUCTIONED Oncology Referral wound Reason for Visit Delayed surgical wou nd healing History of head and neck cancer 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 Head and neck cancer Lung nodules Regional lymph node metastasis present Anemia Cancer related pain Dehydration Chief Complaint OTV OTV 1 WK - LABS - CARBO 1 WK - LABS - CARBO OTV Oncology 1 WK - LABS - CARBO OTV 1 WK - LABS - CARBO OTV HYPONATREMIA HYPONATREMIA HYPONATREMIA OTV HYPONATREMIA HYPONATREMIA 1 WK - LABS - CARBO OTV OTV CA two week f/u follow up 1 MONTH F/U Oncology Referral SQUAMOUS CELL CARCINOMA MANDIBULAR ALVEOLAR RIDGE MALIGNANT NEOPLASM OF MANDIBLE/RX HERE Reason for Visit Delayed surgical wou nd healing Sleep disturbance Head and neck cancer Lung nodules Head and neck cancer Lung nodules Encounter for chemotherapy management Head and neck cancer Lung nodules Head and neck cancer Lung nodules Acute bronchitis with bronchospasm Acute hyponatremia SIADH (syndrome of inappropriate ADH production) Head and neck cancer Lung nodules Head and neck cancer Lung nodules Anemia Cancer related pain Dehydration SIADH (syndrome of inappropriate ADH production) Head and neck cancer Lung nodules 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 Chief Complaint OTV 1 WK - LABS - CARBO 1 WK - LABS - CARBO OTV Oncology 1 WK - LABS - CARBO OTV 1 WK - LABS - CARBO OTV HYPONATREMIA HYPONATREMIA HYPONATREMIA OTV HYPONATREMIA HYPONATREMIA 1 WK - LABS - CARBO OTV OTV CA two week f/u follow up 1 MONTH F/U Oncology Referral SQUAMOUS CELL CARCINOMA MANDIBULAR ALVEOLAR RIDGE MALIGNANT NEOPLASM OF MANDIBLE/RX HERE Reason for Visit Delayed surgical wou nd healing Sleep disturbance Head and neck cancer Lung nodules Head and neck cancer Lung nodules Encounter for chemotherapy management Head and neck cancer Lung nodules Head and neck cancer Lung nodules Acute bronchitis with bronchospasm Acute hyponatremia SIADH (syndrome of inappropriate ADH production) Head and neck cancer Lung nodules Head and neck cancer Lung nodules Anemia Cancer related pain Dehydration SIADH (syndrome of inappropriate ADH production) Head and neck cancer Lung nodules 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 Chief Complaint HYPONATREMIA OTV HYPONATREMIA HYPONATREMIA 1 WK - LABS - CARBO OTV OTV two week f/u follow up 1 MONTH F/U Oncology Referral 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 wound wound CA 3 MO - LABS wound Reason for Visit Acute bronchitis wit h bronchospasm Acute hyponatremia SIADH (syndrome of inappropriate ADH production) Head and neck cancer Lung nodules SIADH (syndrome of inappropriate ADH production) Head and neck cancer Lung nodules 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 Delayed surgical wound healing Head and neck cancer Head and neck cancer Lung nodules Anemia Cancer related pain Dehydration SIADH (syndrome of inappropriate ADH production) Head and neck cancer Lung nodules Chief Complaint SQUAMOUS CELL CARCIN BEATRICE MANDIBULAR ALVEOLAR RIDGE 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 wound wound wound CA 3 MO - LABS wound wound wound wound Malignant neoplasm of mandible wound wound wound 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 wound HEAD/NECK CA Reason for Visit Floor of mouth squam ous cell carcinoma Delayed surgical wound healing Head and neck cancer Head and neck cancer Lung nodules Anemia Cancer related pain Dehydration SIADH (syndrome of inappropriate ADH production) Head and neck cancer Lung nodules Delayed surgical wound healing Nonhealing surgical wound Head and neck cancer Delayed surgical wound healing Nonhealing surgical wound Soft tissue radionecrosis Head and neck cancer Chief Complaint wound wound wound wound HEAD/NECK CA 3 mon f/u H/N wound wound wound wound wound wound wound wound wound 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 wound wound Reason for Visit Delayed surgical wou nd healing Nonhealing surgical wound Soft tissue radionecrosis Head and neck cancer Floor of mouth squamous cell carcinoma Delayed surgical wound healing Nonhealing surgical wound Soft tissue radionecrosis Head and neck cancer Delayed surgical wound healing Nonhealing surgical wound Soft tissue radionecrosis Head and neck cancer Delayed surgical wound healing Nonhealing surgical wound Soft tissue radionecrosis Head and neck cancer Chief Complaint HEAD/NECK CA 3 mon f/u H/N wound wound wound wound wound wound wound wound wound 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 wound wound wound 3 month f/u H/N wound wound wound Reason for Visit Floor of mouth squam ous cell carcinoma Delayed surgical wound healing Nonhealing surgical wound Soft tissue radionecrosis Head and neck cancer Delayed surgical wound healing Nonhealing surgical wound Soft tissue radionecrosis Head and neck cancer Delayed surgical wound healing Nonhealing surgical wound Soft tissue radionecrosis Head and neck cancer Floor of mouth squamous cell carcinoma Delayed surgical wound healing Nonhealing surgical wound Soft tissue radionecrosis Head and neck cancer Chief Complaint wound wound wound wound 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 wound wound wound 3 month f/u H/N wound wound wound 6 MO - LABS CA wound wound wound wound Reason for Visit Delayed surgical wou nd healing Nonhealing surgical wound Soft tissue radionecrosis Head and neck cancer Delayed surgical wound healing Nonhealing surgical wound Soft tissue radionecrosis Head and neck cancer Floor of mouth squamous cell carcinoma Delayed surgical wound healing Nonhealing surgical wound Soft tissue radionecrosis Head and neck cancer Head and neck cancer Lung nodules Head and neck cancer Lung nodules Anemia Cancer related pain Dehydration Delayed surgical wound healing Nonhealing surgical wound Soft tissue radionecrosis Head and neck cancer Chief Complaint wound wound wound wound 3 month f/u H/N wound wound wound 6 MO - LABS CA wound wound wound wound 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 wound wound wound Reason for Visit Delayed surgical wou nd healing Nonhealing surgical wound Soft tissue radionecrosis Head and neck cancer Floor of mouth squamous cell carcinoma Delayed surgical wound healing Nonhealing surgical wound Soft tissue radionecrosis Head and neck cancer Head and neck cancer Lung nodules Head and neck cancer Lung nodules Anemia Cancer related pain Dehydration Delayed surgical wound healing Nonhealing surgical wound Soft tissue radionecrosis Head and neck cancer Delayed surgical wound healing Nonhealing surgical wound Soft tissue radionecrosis Head and neck cancer Chief Complaint wound wound wound 3 month f/u H/N wound wound wound 6 MO - LABS CA wound wound wound wound 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 wound wound wound wound Personal history of malignant neoplasm of other or wound wound 3 month f/u H/N, review scans Reason for Visit Delayed surgical wou nd healing Nonhealing surgical wound Soft tissue radionecrosis Head and neck cancer Floor of mouth squamous cell carcinoma Delayed surgical wound healing Nonhealing surgical wound Soft tissue radionecrosis Head and neck cancer Head and neck cancer Lung nodules Head and neck cancer Lung nodules Anemia Cancer related pain Dehydration Delayed surgical wound healing Nonhealing surgical wound Soft tissue radionecrosis Head and neck cancer Delayed surgical wound healing Nonhealing surgical wound Soft tissue radionecrosis Head and neck cancer Delayed surgical wound healing Nonhealing surgical wound Soft tissue radionecrosis Head and neck cancer Floor of mouth squamous cell carcinoma Chief Complaint wound 3 month f/u H/N wound wound wound 6 MO - LABS CA wound wound wound wound 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 wound wound wound wound Personal history of malignant neoplasm of other or wound 3 month f/u H/N, review scans wound wound wound wound Reason for Visit Floor of mouth squam ous cell carcinoma Delayed surgical wound healing Nonhealing surgical wound Soft tissue radionecrosis Head and neck cancer Head and neck cancer Lung nodules Head and neck cancer Lung nodules Anemia Cancer related pain Dehydration Delayed surgical wound healing Nonhealing surgical wound Soft tissue radionecrosis Head and neck cancer Delayed surgical wound healing Nonhealing surgical wound Soft tissue radionecrosis Head and neck cancer Floor of mouth squamous cell carcinoma Delayed surgical wound healing Nonhealing surgical wound Soft tissue radionecrosis Head and neck cancer Chief Complaint wound wound wound wound 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 wound wound wound wound Personal history of malignant neoplasm of other or wound 3 month f/u H/N, review scans wound wound wound wound wound wound wound wound wound Reason for Visit Delayed surgical wou nd healing Nonhealing surgical wound Soft tissue radionecrosis Head and neck cancer Delayed surgical wound healing Nonhealing surgical wound Soft tissue radionecrosis Head and neck cancer Floor of mouth squamous cell carcinoma Delayed surgical wound healing Nonhealing surgical wound Soft tissue radionecrosis Head and neck cancer Delayed surgical wound healing Nonhealing surgical wound Soft tissue radionecrosis Head and neck cancer Chief Complaint wound wound wound wound wound wound wound wound Personal history of malignant neoplasm of other or wound 3 month f/u H/N, review scans wound wound wound wound wound wound wound wound wound wound wound 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 Reason for Visit Delayed surgical wou nd healing Nonhealing surgical wound Soft tissue radionecrosis Head and neck cancer Delayed surgical wound healing Nonhealing surgical wound Soft tissue radionecrosis Head and neck cancer Floor of mouth squamous cell carcinoma Delayed surgical wound healing Nonhealing surgical wound Soft tissue radionecrosis Head and neck cancer Delayed surgical wound healing Nonhealing surgical wound Soft tissue radionecrosis Head and neck cancer Delayed surgical wound healing Nonhealing surgical wound Soft tissue radionecrosis Head and neck cancer Chief Complaint wound wound wound 6 MO - NO LABS MALIGNANT NEOPLASM OF MANDIBLE/RX HERE CANCER Reason for Visit Delayed surgical wou nd healing Nonhealing surgical wound Soft tissue radionecrosis Head and neck cancer Head and neck cancer Lung nodules Chief Complaint 6 MO - NO LABS MALIGNANT NEOPLASM OF MANDIBLE/RX HERE CANCER 6 month f/u H/N review CT scans FLOOR OF MOUTH SQUAMOUS CELL CARCINOMA BOOTH CLEANER DYSPHAGIA Reason for Visit Head and neck cancer Lung nodules Floor of mouth squamous cell carcinoma Esophageal dysphagia Chief Complaint CANCER 6 month f/u H/N review CT scans FLOOR OF MOUTH SQUAMOUS CELL CARCINOMA BOOTH CLEANER DYSPHAGIA MALIGNANT NEOPLASM OF MANDIBLE/RX HERE Reason for Visit Floor of mouth squam ous cell carcinoma Esophageal dysphagia Chief Complaint Admit Date FOLLOW UP LUNG NODULE August 25, 2024 7:04am 3 MO - NO LABS - REVIEW CT August 1:32pm RUL LUNG NODULE/stat labs September 15, 2024 8:44am RUL LUNG NODULE/stat labs September 15, 2024 11:22am REVIEW BX RESULTS September 28, 2024 11 :59am FLOOR OF MOUTH SQUAMOUS CELL/RX SCANNED IN December 16, 2024 9:00am MOUTH CANCER December 17, 2024 9:0 0am Reason for Visit Admit Date Head and neck cancer September 07, 2024 1:32pm Lung nodules September 07, 2024 1:32pm Regional lymph node metastasis present D ecember 2023 1:32pm Right upper lobe pulmonary nodule Decemb er 2023 8:44am Head and neck cancer September 28, 2024 1 1:59am Lung nodules September 28, 2024 11 :59am Regional lymph node metastasis present J anuary 2024 11:59am Esophageal dysphagia October 21, 2024 5:27am Chief Complaint Admit Date 3 MO - NO LABS - REVIEW CT August 1:32pm RUL LUNG NODULE/stat labs September 15, 2024 8:44am RUL LUNG NODULE/stat labs September 15, 2024 11:22am REVIEW BX RESULTS September 28, 2024 11 :59am MOUTH CANCER December 17, 2024 9:0 0am abnormal finding of lung field December 8:01am FLOOR OF MOUTH SQUAMOUS CELL/RX SCANNED IN December 30, 2024 9:00am Chief Complaint Admit Date MOUTH CANCER December 17, 2024 9:0 0am abnormal finding of lung field December 8:01am [address] NO LABS January 05 10:58am FLOOR OF MOUTH SQUAMOUS CELL/RX SCANNED IN January 20, 2025 9:30am 6 MONTH F/U H/N February 02, 2025 9:28a m Reason for Visit Admit Date Esophageal dysphagia October 21, 2024 5:27am Head and neck cancer January 05, 2025 10 :58am Lung nodules January 05, 2025 10: 58am Regional lymph node metastasis present A pril 2024 10:58am Chief Complaint Admit Date MOUTH CANCER December 17, 2024 9:0 0am abnormal finding of lung field December 8:01am [address] NO LABS January 05 10:58am FLOOR OF MOUTH SQUAMOUS CELL/RX SCANNED IN January 20, 2025 9:30am 6 MONTH F/U H/N February 02, 2025 9:28a m ONC MNT February 02, 2025 10:37 am FU February 11, 2025 7:56a m Reason for Visit Admit Date Head and neck cancer January 05, 2025 10 :58am Lung nodules January 05, 2025 10: 58am Regional lymph node metastasis present A pril 2024 10:58am History of head and neck cancer January 9:28am Esophageal dysphagia February 11, 2025 7:56 am Chief Complaint Admit Date MOUTH CANCER December 17, 2024 9:0 0am abnormal finding of lung field December 8:01am [address] NO LABS January 05 10:58am FLOOR OF MOUTH SQUAMOUS CELL/RX SCANNED IN January 20, 2025 9:30am 6 MONTH F/U H/N February 02, 2025 9:28a m ONC MNT February 02, 2025 10:37 am FU February 11, 2025 7:56a m Paresthesia of skin March 03, 2025 1:45 pm Paresthesia of skin March 03, 2025 3:19 pm Advance Directives No Advanced Directives Records Found Advance Directive Response Recorded Date/ Time Advance Directives on File Yes 2018 1:06pm Advance Directives No December 07, 2:14pm Living Will Yes December 10, 2021 5:19pm Power of Rag Room Supervisor No December 10 5:19pm Advance Directive Response Recorded Date/ Time Advance Directives on File Yes 2018 1:06pm Advance Directives No December 07, 022 2:14pm Living Will No December 15, 2021 12:08pm Power of Rag Room Supervisor No December 15 12:08pm Advance Directive Response Recorded Date/ Time Advance Directives No December 20 10:23am Living Will No December 20, 2021 10:23am Power of Rag Room Supervisor No December 20 10:23am Advance Directive Response Recorded Date/ Time Advance Directives No January 10 11:06am Living Will No January 10, 2022 11:06am Power of Rag Room Supervisor No January 10 11:06am Advance Directive Response Recorded Date/ Time Advance Directives on File Yes January 17, 2022 9:59am Advance Directives No January 17 9:59am Living Will No January 22, 2022 10 :45pm Power of Rag Room Supervisor No January 22, 2022 10:45pm Advance Directive Response Recorded Date/ Time Advance Directives No January 31 9:09am Living Will No January 31, 2022 9 :09am Power of Rag Room Supervisor No January 31, 2022 9:09am Advance Directives on File Yes January 17, 2022 9:59am Advance Directive Response Recorded Date/ Time Advance Directives on File Yes January 17, 2022 9:59am Advance Directives No January 31 9:09am Living Will No January 31, 2022 9 :09am Power of Rag Room Supervisor No January 31, 2022 9:09am Advance Directive Response Recorded Date/ Time Advance Directives on File Yes January 17, 2022 8:59am Advance Directives No January 31 8:09am Living Will No January 31, 2022 8 :09am Power of Rag Room Supervisor No January 31, 2022 8:09am Advance Directive Response Recorded Date/ Time Advance Directives No January 31 8:09am Living Will No January 31, 2022 8 :09am Power of Rag Room Supervisor No January 31, 2022 8:09am Advance Directive Response Recorded Date/ Time Advance Directives No January 31 9:09am Living Will No January 31, 2022 9 :09am Power of Rag Room Supervisor No January 31, 2022 9:09am Advance Directive Response Recorded Date/ Time Name of Medical Power of Rag Room Supervisor DAUGHTER September 02, 2023 9:21am Advance Directives No January 31 8:09am Living Will Yes September 02 023 9:21am Power of Rag Room Supervisor Yes September 02, 2023 9:21am Advance Directive Response Recorded Date/ Time Living Will Yes February 13, 2024 1 0:29am Do you have a Healthcare Power of Rag Room Supervisor? Yes February 13, 2024 10:29am Living Will Yes October 20 12:36pm Do you have a Healthcare Power of Rag Room Supervisor? Yes October 20, 2024 12:36pm Name of Medical Power of Rag Room Supervisor DAUGHTER October 20, 2024 12:36pm Advance Directives No January 31 9:09am Advance Directive Response Recorded Date/ Time Living Will Yes February 13, 2024 1 0:29am Do you have a Healthcare Power of Rag Room Supervisor? 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 Section Author: Lalita Jaramillo PROHIBITION ON REDISCLOSURE OF CONFIDENTIAL INFORMATION This notice accompanies a disclosure of information concerning a client made to you with the consent of such client. Goals (unrecognized section and content) Goals may be documented in a n alternate sectionGoals may be documented in an alternate sectionGoals may be documented in an alternate sectionGoals may be documented in an alternate sectionGoals may be documented in an alternate sectionGoals may be documented in an alternate sectionGoals may be documented in an alternate sectionGoals may be documented in an alternate sectionGoals may be documented in an alternate sectionGoals may be documented in an alternate sectionGoals may be documented in an alternate sectionGoals may be documented in an alternate sectionGoals may be documented in an alternate sectionGoals may be documented in an alternate sectionGoals may be documented in an alternate sectionGoals may be documented in an alternate sectionGoals may be documented in an alternate sectionGoals may be documented in an alternate sectionGoals may be documented in an alternate sectionGoals may be documented in an alternate sectionGoals may be documented in an alternate section (unrecognized sect ion and content) No Status Records FoundNo Status Records FoundNo Status Records FoundNo Status Records FoundNo Status Records FoundNo Status Records FoundNo Status Records Found INFORMATION SOURCE (unrecogn ized section and content) DATE CREATED AUTHOR 12/14/2021 [facility] DATE CREATED AUTHOR AUTHOR'S ORGANIZ ATION 01/17/2023 [facility] DATE CREATED AUTHOR AUTHOR'S ORGANIZ ATION 04/26/2023 [facility] DATE CREATED AUTHOR AUTHOR'S ORGANIZ ATION 04/26/2023 [employer] DATE CREATED AUTHOR AUTHOR'S ORGANIZ ATION 08/08/2024 [facility] DATE CREATED AUTHOR AUTHOR'S ORGANIZ ATION 03/15/2025 [facility] DATE CREATED AUTHOR AUTHOR'S ORGANIZ ATION [facility] Care Teams (unrecognized sec tion and content) Team Status: Active Member Role Status Dates Kya Gonzalez BOOTH CLEANER, BOOTH CLEANER-C Family Provider Active Kya Gonzalez BOOTH CLEANER, BOOTH CLEANER-C Primary Care Provider Active Team Status: Inactive Member Role Status Dates Kya Gonzalez NP, BOOTH CLEANER-C Primary Care Provider Active Dr. Santiago Sellers , Attending Provider Active Team Status: Active Member Role Status Dates Kya Gonzalez BOOTH CLEANER, BOOTH CLEANER-C Primary Care Provider Active Joya Galvez NP, BOOTH CLEANER-C Attending Provider, Other Pro vider Active Team Status: Active Member Role Status Dates Kya Gonzalez NP, BOOTH CLEANER-C Primary Care Provider Active Joya Galvez BOOTH CLEANER, BOOTH CLEANER-C Attending Provi brittany, Referring Provider, Other Provider Active Team Status: Active Member Role Status Dates Kya Gonzalez NP, BOOTH CLEANER-C Primary Care Provider Active Dr. Santiago Sellers DO Attending Provider, Referring P bhumi Active Team Status: Inactive Member Role Status Dates Kya Gonzalez NP, BOOTH CLEANER-C Primary Care Provider Active Dr. Quincy Simpson MD Attending Provider Active Team Status: Inactive Member Role Status Dates Kya Gonzalez BOOTH CLEANER, BOOTH CLEANER-C Primary Care Provider Active Joya Galvez BOOTH CLEANER, BOOTH CLEANER-C Attending Provider, Referring Provider Active Team Status: Inactive Member Role Status Dates Kya Gonzalez BOOTH CLEANER, BOOTH CLEANER-C Primary Care Provider, Referring P rovider Active Dr. Quincy Simpson MD Attending Provider Active Team Status: Active Member Role Status Dates Kya Gonzalez BOOTH CLEANER, BOOTH CLEANER-C Primary Care Provide r, Family Provider, Referring Provider Active Dr. Quincy Simpson MD Attending Provider Active Dr. Santiago Sellers DO Active Marce Maxwell BOOTH CLEANER, BOOTH CLEANER-C Active Team Status: Inactive Member Role Status Dates Kya Gonzalez BOOTH CLEANER, BOOTH CLEANER-C Primary Care Provider, Referring P rovider Active Dr. Santiago Sellers DO Attending Provider Active Team Status: Inactive Member Role Status Dates Dr. Santiago Sellers DO Attending Provider, Referring P rovider Active Sadie Santiago BOOTH CLEANER-C Primary Care Provider Active Team Status: Active Member Role Status Dates Kya Gonzalez BOOTH CLEANER, BOOTH CLEANER-C Primary Care Provider Active Joay Gavlez BOOTH CLEANER, BOOTH CLEANER-C Attending Provider, Referring Provider Active Team Status: Inactive Member Role Status Dates Kya Gonzalez BOOTH CLEANER, BOOTH CLEANER-C Primary Care Provider Active Dr. Quincy Simpson MD Attending Provider, Referrin g Provider Active Astrochemist Relationship Specialty Start Date End Date Kya Gonzalez, UNDERGROUND REPAIRER-FISH CLEANER, UNDERGROUND REPAIRER-MOLDING PROCESS TECHNICIAN [address] [phone] PCP - General 01/19/19 Jeana Gaspar DO [address] [facility] [address] [place] [address] PCP - [facility] PCP 09/23/21 Team Status: Inactive Member Role Status Dates Kya Gonzalez BOOTH CLEANER, BOOTH CLEANER-C Primary Care Provider, Referring P rovider Active Dr. Elliott Akhtar DO Attending Provider Active Team Status: Active Member Role Status Dates Kya Gonzalez BOOTH CLEANER, BOOTH CLEANER-C Primary Care Provider, Referring P rovider Active Dr. Elliott Akhtar DO Attending Provider, Other Prov ider Active Team Status: Inactive Member Role Status Dates Kya Gonzalez BOOTH CLEANER, BOOTH CLEANER-C Primary Care Provider Active Dr. Santiago Sellers , Attending Provider, Roney tripathi Active Astrochemist Relationship Specialty Start Date End Date Kya Gonzalez, UNDERGROUND REPAIRER-FISH CLEANER, UNDERGROUND REPAIRER-MOLDING PROCESS TECHNICIAN [id number] [place] [phone] PCP - General 01/19/19 Jeana Gaspar DO [address] [facility] [address] [place], [place] [id number] PCP - [facility] PCP 09/23/21 Astrochemist Relationship Specialty Start Date End Date Kya Gonzalez, UNDERGROUND REPAIRER-FISH CLEANER, UNDERGROUND REPAIRER-MOLDING PROCESS TECHNICIAN [address] [id number] [place] [phone] PCP - General 01/19/19 Jeana Gaspar DO [address] [facility] [address] [place] [address] PCP - [facility] PCP 09/23/21 Astrochemist Relationship Specialty Start Date End Date Kya Gonzalez, UNDERGROUND REPAIRER-FISH CLEANER, UNDERGROUND REPAIRER-MOLDING PROCESS TECHNICIAN [id number] [place] [id number] PCP - General 01/19/19 Jeana Gaspar DO [address] [facility] [address] [place] [address] PCP - [facility] PCP 09/23/21 Team Status: Active Member Role Status Dates Sadie Santiago , BOOTH CLEANER-C Primary Care Provider Active Team Status: Inactive Member Role Status Dates Dr. Quincy Simpson MD Attending Provider Active Start: August 25, 2024 End: August 25, 2024 Dr. Quincy Simpson MD Referring Provider Active Start: August 25, 2024 End: August 25, 2024 YARI Santillan Primary Care Provider Active Start: August 25, 2024 End: August 25, 2024 Team Status: Inactive Member Role Status Dates Dr. Quincy Simpson MD Attending Provider Active Start: September 07, 2024 End: September 07, 2024 Sadie Santiago NP-C Primary Care Provider Active Start: September 07, 2024 End: September 07, 2024 Sadie Santiago NP-C Referring Provider Active Start: September 07, 2024 End: September 07, 2024 Team Status: Inactive Member Role Status Dates YARI Santillan Primary Care Provider Active Start: September 15, 2024 End: September 15, 2024 Dr. Quincy Simpson MD Attending Provider Active Start: September 15, 2024 End: September 15, 2024 Dr. Quincy Simpson MD Referring Provider Active Start: September 15, 2024 End: September 15, 2024 YARI Nguyen Other Provider Active Sta rt: September 15, 2024 End: September 15, 2024 Team Status: Active Member Role Status Dates YARI Santillan Primary Care Provider Active Start: September 15, 2024 Dr. Quincy Simpson MD Referring Provider Active Start: September 15, 2024 Dr. Quincy Simpson MD Other Provider Active Start: September 15, 2024 ERWIN NguyenC Attending Provider Active Start: September 15, 2024 YARI Nguyen Other Provider Active Sta rt: September 15, 2024 Team Status: Inactive Member Role Status Dates ERWIN SantillanC Primary Care Provider Active Start: September 28, 2024 End: September 28, 2024 YARI Santillan Referring Provider Active Start: September 28, 2024 End: September 28, 2024 Dr. Quincy Simpson MD Attending Provider Active Start: September 28, 2024 End: September 28, 2024 Team Status: Inactive Member Role Status Dates Dr. Elliott Akhtar DO Attending Provider Active Start: October 21, 2024 End: October 21, 2024 Sadie Santiago BOOTH CLEANER-C Primary Care Provider Active Start: October 21, 2024 End: October 21, 2024 Sadie Santiago BOOTH CLEANER-C Referring Provider Active Start: October 21, 2024 End: October 21, 2024 Team Status: Active Member Role Status Dates Dr. Elliott Akhtar DO Attending Provider Active Start: October 21, 2024 Dr. Elliott Akhtar DO Other Provider Active St art: October 21, 2024 Sadie Santiago BOOTH CLEANER-C Primary Care Provider Active Start: October 21, 2024 Sadie Santiago BOOTH CLEANER-C Referring Provider Active Start: October 21, 2024 Team Status: Active Member Role Status Dates Kya Gonzalez BOOTH CLEANER, BOOTH CLEANER-C Primary Care Provider Active Start: December 16, 2024 Dr. Santiago Sellers DO Attending Provider Active Start: December 16, 2024 Dr. Santiago Sellers DO Referring Provider Active Start: December 16, 2024 Team Status: Inactive Member Role Status Dates Sadie Santiago BOOTH CLEANER-C Primary Care Provider Active Start: December 17, 2024 End: December 17, 2024 Dr. Santiago Sellers DO Attending Provider Active Start: December 17, 2024 End: December 17, 2024 Dr. Santiago Sellers DO Referring Provider Active Start: December 17, 2024 End: December 17, 2024 Team Status: Inactive Member Role Status Dates Sadie Santiago BOOTH CLEANER-C Primary Care Provider Active Start: December 29, 2024 End: December 29, 2024 Dr. Quincy Simpson MD Attending Provider Active Start: December 29, 2024 End: December 29, 2024 Dr. Quincy Simpson MD Referring Provider Active Start: December 29, 2024 End: December 29, 2024 Team Status: Active Member Role Status Dates Kya Gonzalez BOOTH CLEANER, BOOTH CLEANER-C Primary Care Provider Active Start: December 30, 2024 Dr. Santiago Sellers DO Attending Provider Active Start: December 30, 2024 Dr. Santiago Sellers DO Referring Provider Active Start: December 30, 2024 Team Status: Inactive Member Role Status Dates Sadie Santiago BOOTH CLEANER-C Primary Care Provider Active Start: January 05, 2025 End: January 05, 2025 Sadie Jack , BOOTH CLEANER-C Referring Provider Active Start: January 05, 2025 End: January 05, 2025 Dr. Quincy Simpson MD Attending Provider Active Start: January 05, 2025 End: January 05, 2025 Team Status: Active Member Role Status Dates Kya Gonzalez AJAY, BOOTH CLEANER-C Primary Care Provider Active Start: January 20, 2025 Dr. Santiago Sellers DO Attending Provider Active Start: January 20, 2025 Dr. Santiago Sellers DO Referring Provider Active Start: January 20, 2025 Team Status: Inactive Member Role Status Dates Sadie Santiago , BOOTH CLEANER-C Primary Care Provider Active Start: February 02, 2025 End: February 02, 2025 Sadie Santiago , BOOTH CLEANER-C Referring Provider Active Start: February 02, 2025 End: February 02, 2025 Dr. Santiago Sellers DO Attending Provider Active Start: February 02, 2025 End: February 02, 2025 Team Status: Inactive Member Role Status Dates Sadie Santiago , BOOTH CLEANER-C Primary Care Provider Active Start: February 02, 2025 End: February 20, 2025 Dr. Santiago Sellers DO Attending Provider Active Start: February 02, 2025 End: February 20, 2025 Team Status: Inactive Member Role Status Dates Sadie Santiago , BOOTH CLEANER-C Primary Care Provider Active Start: February 11, 2025 End: February 11, 2025 Sadie Santiago , BOOTH CLEANER-C Referring Provider Active Start: February 11, 2025 End: February 11, 2025 Dr. Elliott Akhtar DO Attending Provider Active Start: February 11, 2025 End: February 11, 2025 Team Status: Inactive Member Role Status Dates Sadie Santiago , BOOTH CLEANER-C Primary Care Provider Active Start: March 03, 2025 End: March 03, 2025 Dr. James Stephens DO Attending Provider Active Start: March 03, 2025 End: March 03, 2025 Dr. James Stephens DO Referring Provider Active Start: March 03, 2025 End: March 03, 2025 Team Status: Active Member Role Status Dates Sadie Santiago BOOTH CLEANER-C Primary Care Provider Active Start: March 03, 2025 Dr. James Stephens DO Referring Provider Active Start: March 03, 2025 Dr. James Stephens , Other Provider Active Start: March 03, 2025 Dr. Loretta Rausch MD Attending Provider Active S tart: March 03, 2025 Astrochemist Relationship Specialty Start Date End Date Kya Gonzalez, UNDERGROUND REPAIRER-FISH CLEANER, UNDERGROUND REPAIRER-MOLDING PROCESS TECHNICIAN [id number] [place] [phone] PCP - General 01/19/19 Reason for Visit (unrecogniz ed section and content) Reason Comments Follow-up Reason Comments Head And Neck Cancer Follow up FOR RECORDS PERTAINING TO PATIENTS WHO ARE OR HAVE BEEN ENROLLED IN A CHEMICAL DEPENDENCY/SUBSTANCEABUSE PROGRAM, SOME INFORMATION MAY BE OMITTED. This clinical summary was aggregated from multiple sources. Caution should be exercised in using it in the provision of clinical care. This summary normalizes information from multiple sources, and as a consequence, information in this document may materially change the coding, format and clinical context of patient data. In addition, data may be omitted in some cases. CLINICAL DECISIONS SHOULD BE BASED ON THE PRIMARY CLINICAL RECORDS. [facility]. provides no warranty or guarantee of the accuracy or completeness of information in this document.
== END | disposition home or self-care (01) ==
LOC: PSN 07:05
PROVIDERS: PCP Nurse Practitioner Family; Referring Provider Student in an Organized Health Care Education/Training Program; Visit Provider Student in an Organized Health Care Education/Training Program
DX: R20.2 Paresthesia of skin (principal)
CPT/HCPCS: 95886; 95909

== ENCOUNTER 2025-04-15 07:13 | Day surgery (SDC) | payer MEDICARE, SELFPAY ==
[2022-01-31 09:09] VITALS: BMI 22.6
[2025-04-15] VITALS (9 sets, daily range): BP systolic 75–167; BP diastolic 48–70; PULSE 57–100; RESP 16; TEMP 36.6; O2SAT 98–100; BMI 19.8
--- OUTSIDE RECORDS SUMMARY | 2025-04-15 07:20 | XMS RPT_ITS | CCD ---
Author Organization [facility] CliniSymi Care Team Providers Care [employer] Supervisor Name Role Phone Katharinaa Archana Unavailable Shane Gallo Unavailable Xavier Myers Unavailable Unavailable Unavailable Unavailable One Eighty Unavailable Eighty, One Unavailable Rachel Brooks Unavailable Unavailable Josefaeschioma Archana Unavailable Unavailable Jeana Gaspar Unavailable aCridad Gomez Unavailable Unavailable Lina Pretty Unavailable Unavailable Xavier Ponce Unavailable Unavailable Shane Gallo Unavailable Cieschioma ORNELAS Archana Unavailable Shane Gallo MD Unavailable Eighty, One Unavailable Xavier Ponce LPN Unavailable Unavailable Caridad Gomez LPN Unavailable Unavailable Unavailable Unavailable Ciesa Archana Unavailable Unavailable Unavailable Ciesa, Archana Unavailable Sidagam, Brayan Unavailable Unavailable Rachel Brooks Unavailable BrandenAvinash zheng Unavailable Unavailable Ciesa MACHINE ROOM ENGINEER, MACHINE ROOM ENGINEER-C Kya Primary Care Provider Cidanya MACHINE ROOM ENGINEER, MACHINE ROOM ENGINEER-C Kya Referring Provider Dr. Santiago Sellers Attending Provider Dr. Santiago Sellers Referring Provider Dr. Quincy Simpson Attending Provider Dr. Donaldo Nichole Attending Provider Dr. Quincy Simpson Referring Provider Alissa MACHINE ROOM ENGINEER, MACHINE ROOM ENGINEER-C Marce Attending Provider Dr. Cesar Mcbride Emergency Provider Dr. Sonu Lee Admit Provider Dr. Sonu Lee Other Provider Katerin, MACHINE ROOM ENGINEER-C Rehana Attending Provider Unavail able Dr. Dalila Melvin Attending Provider Dr. Dalila Melvin Other Provider Dr. Alan Miller Other Provider Ciesa, Kya Unavailable Unavailable Unavailable Gravius PHOTOENGRAVING FINISHER, Li Unavailable Unavailable Hubert DO, Jeana Unavailable Slarb CAN MARKER, Mirna Unavailable Unavailable Ciesa, Kya Unavailable Jack DIRECTOR [facility] [facility], Sadie Unavailable Jack DIRECTOR [facility] [facility], Sadie Unavailable Unavailable Unavailable Ciesa MACHINE ROOM ENGINEER, MACHINE ROOM ENGINEER-C [facility] Primary Care Provider Dr. Santiago Sellers Attending Provider Dr. Santiago Sellers Referring Provider Ciesa MACHINE ROOM ENGINEER, MACHINE ROOM ENGINEER-C [facility] Referring Provider Dr. Quincy Simpson Attending Provider Cidanya MACHINE ROOM ENGINEER, MACHINE ROOM ENGINEER-C [facility] Primary Care Provider Dr. Santiago Sellers Attending Provider Dr. Santiago Sellers Referring Provider Cidanya MACHINE ROOM ENGINEER, MACHINE ROOM ENGINEER-C [facility] Primary Care Provider Dr. Santiago Sellers Attending Provider Dr. Santiago Sellers Referring Provider Dr. Cesar Mcbride Emergency Provider Dr. Sonu Lee Admit Provider Dr. Sonu Lee Other Provider Dr. Dalila Melvin Attending Provider [phone] Dr. Dalila Melvin Other Provider Dr. Alan Miller Other Provider Ciesa MACHINE ROOM ENGINEER, MACHINE ROOM ENGINEER-C [facility] Referring Provider Dr. Quincy Simpson Attending Provider Ciesa MACHINE ROOM ENGINEER, MACHINE ROOM ENGINEER-C [facility] Primary Care Provider Ciesa MACHINE ROOM ENGINEER, MACHINE ROOM ENGINEER-C [facility] Referring Provider Dr. Santiago Sellers Attending Provider Dr. Quincy Simpson Attending Provider Ciesa MACHINE ROOM ENGINEER, MACHINE ROOM ENGINEER-C [facility] Primary Care Provider Ciesa MACHINE ROOM ENGINEER, MACHINE ROOM ENGINEER-C [facility] Referring Provider Dr. Santiago Sellers Attending Provider Ciesa MACHINE ROOM ENGINEER, MACHINE ROOM ENGINEER-C [facility] Primary Care Provider Ciesa MACHINE ROOM ENGINEER, MACHINE ROOM ENGINEER-C [facility] Referring Provider Dr. Santiago Sellers Attending Provider Dr. Quincy Simpson Attending Provider Jack DIRECTOR [facility], Sadie Unavailable Jack DIRECTOR [facility] [facility], Sadie Unavailable Sabino QUESADA, Shane Paniagua Unavailable Eighty, One Unavailable Gravius PHOTOENGRAVING FINISHER, Li Unavailable Unavailable Jason CAN MARKER, Caridad Unavailable Unavailable Kris CAN MARKER, Xavier Unavailable Unavailable Hubert DO, Jeana Unavailable Haleigh CAN MARKER, Mirna Unavailable Unavailable Unavailable Unavailable Ciesa MACHINE ROOM ENGINEER, MACHINE ROOM ENGINEER-C [facility] Primary Care Provider Dr. Santiago Sellers Attending Provider Ciesa MACHINE ROOM ENGINEER, MACHINE ROOM ENGINEER-C [facility] Primary Care Provider Dr. Santiago Sellers Attending Provider Ciesa MACHINE ROOM ENGINEER, MACHINE ROOM ENGINEER-C [facility] Referring Provider [phone] Dr. Quincy Simpson Attending Provider Cathy ALONZO Koki Unavailable Unavailable Jack DIRECTOR [facility] [facility], Sadie Attending Unavailable Jack DIRECTOR [facility] [facility], Sadie Referring Unavailable Jack DIRECTOR [facility] [facility], Sadie Consulting Unavailable Ciesa MACHINE ROOM ENGINEER, MACHINE ROOM ENGINEER-C [facility] Primary Care Provider Ciesa MACHINE ROOM ENGINEER, MACHINE ROOM ENGINEER-C [facility] Referring Provider [phone] Dr. Santiago Sellers [...] De La Cruz Referring Unava ilable Ciesa MACHINE ROOM ENGINEER, MACHINE ROOM ENGINEER-C [facility] Primary Care Provider Ciesa MACHINE ROOM ENGINEER, MACHINE ROOM ENGINEER-C [facility] Referring Provider [phone] Dr. Quincy Simpson Attending Provider Ciesa ADMINISTRATIVE PROFESSIONAL-DIRECTOR [facility], ADMINISTRATIVE PROFESSIONAL-SMALL STOCK FACER, [facility] Primary Care Pr ovider Jeana Gaspar DO Unavailable Dr. Santiago Sellers Attending Provider Dr. Elliott Akhtar Attending Provider Dr. Elliott Akhtar Other Provider Ciesa MACHINE ROOM ENGINEER, MACHINE ROOM ENGINEER-C [facility] Primary Care Provider Ciesa MACHINE ROOM ENGINEER, MACHINE ROOM ENGINEER-C [facility] Referring Provider RACHEL BROOKS Referring Unavailable CIESA, [facility] Primary Care Unavailable Dr. Quincy Simpson MD Attending Provider Dr. Quincy Simpson MD Referring Provider Jack MACHINE ROOM ENGINEER-C, Sadie Primary Care Provider Jack MACHINE ROOM ENGINEER-CSadie Referring Provider Kalie MACHINE ROOM ENGINEER-C, Loretta A Other Provider Dr. Quincy Simpson MD Other Provider Kalie MACHINE ROOM ENGINEER-C, Loretta Murrell Attending Provider Dr. Elliott Akhtar DO Attending Provider Dr. Elliott Akhtar DO Other Provider Monica MACHINE ROOM ENGINEER-C, [facility] Primary Care Provider Unavailab le Dr. Santiago Sellers DO Attending Provider Dr. Santiago Sellers DO Referring Provider Dr. Quincy Simpson MD Attending Provider Jack MACHINE ROOM ENGINEER-C, Sadie Primary Care Provider Dr. Quincy Simpson MD Referring Provider Dr. Santiago Sellers DO Attending Provider Dr. Santiago Sellers DO Referring Provider Monica MACHINE ROOM ENGINEER-C, [facility] Primary Care Provider Unavailab le Jack MACHINE ROOM ENGINEER-C, Sadie Primary Care Provider Jack MACHINE ROOM ENGINEER-C, Sadie Referring Provider Tatiana QUESADA, Dr. Mathew Attending Provider Tatiana QUESADA, Dr. Mathew Referring Provider Ciesa MACHINE ROOM ENGINEER-C, [facility] Primary Care Provider Unavailab le Jack MACHINE ROOM ENGINEER-C, Sadie Primary Care Provider Jack MACHINE ROOM ENGINEER-C, Sadie Referring Provider Giovana REN, Dr. Gallagher Attending Provider Angelo REN, Dr. Ramirez Attending Provider Angelo REN, Dr. Ramirez Referring Provider Angelo REN, Dr. Ramirez Other Provider Shalom QUESADA, Dr. Burgos Attending Provider Ciesa ADMINISTRATIVE PROFESSIONAL-DIRECTOR [facility], ADMINISTRATIVE PROFESSIONAL-SMALL STOCK FACER, Archana Primary Care Pr ovider JAELYN PATRICK Attending Unavailable CIESA, ARCHANA Primary Care Unavailable JAELYN PATRICK Attending Unavailable CIESA, ARCHANA Primary Care Unavailable RACHEL BROOKS Attending Unavailable CIESA, ARCHANA Primary Care Unavailable RACHEL BROOKS Attending Unavailable CIESA, ARCHANA Primary Care Unavailable RACHEL BROOKS Attending Unavailable CIESA, ARCHANA Primary Care Unavailable Ciesa MACHINE ROOM ENGINEER-C, [facility] Primary Care Provider Unavailab Santiago Levine Attending Unavailable Jack, Sadie Primary Care Unavailable Loretta Jade Consulting Unavailable Isckarus, Carmitaour Referring Unavailable Isckarus, Carmitaour Attending Unavailable Jack, Sadie Primary Care Unavailable Jack, Sadie Primary Care Unavailable Isckarus, Mansour Attending Unavailable Isckarus, Mansour Referring Unavailable Jack, Sadie Primary Care Unavailable Jack, Sadie Referring Unavailable Isckarus, Mansour Attending Unavailable Jack, Sadie Referring Unavailable Isckarus, Carmitaour Attending Unavailable Jack, Sadie Primary Care Unavailable James Stephens Consulting Unavailable Spittle, James Referring Unavailable Jack, Sadie Primary Care Unavailable Ahmad, Loretta Attending Unavailable Spittle, James Referring Unavailable Spittle, James Consulting Unavailable Jack, Sadie Primary Care Unavailable Ahmad, Leónal Attending Unavailable Jack, Sadie Referring Unavailable Jack, Sadie Primary Care Unavailable Giovana, Elliott Attending Unavailable Isckarus, Quincy Attending Unavailable Isckarus, Carmitaour Referring Unavailable Jack, Sadie Primary Care Unavailable Tobi Sellerse Attending Unavailable Jack, Sadie Primary Care Unavailable Jack, Sadie Primary Care Unavailable Ciesa MACHINE ROOM ENGINEER, Kya Referring Unavailable Friend, Elliott Attending Unavailable Loretta Jade Consulting Unavailable Loretta Jade Attending Unavailable Isckarus, Mansour Referring Unavailable Jack, Sadie Primary Care Unavailable Isckarus, Mansour Consulting Unavailable Jack, Sadie Primary Care Unavailable Jack, Sadie Referring Unavailable Friend, Elliott Consulting Unavailable FriendElliott Attending Unavailable Jack, Sadie Referring Unavailable Jack, Sadie Primary Care Unavailable Isckarus, Carmitaour Attending Unavailable Jack, Sadie Referring Unavailable Jack, Sadie Primary Care Unavailable Isckarus, Carmitaour Attending Unavailable Armandottle, James Attending Unavailable Spittle, James Referring Unavailable Jack, Sadie Primary Care Unavailable Santiago Sellers Attending Unavailable Tobi Sellerse Referring Unavailable Jack, Sadie Primary Care Unavailable Jack, Sadie Primary Care Unavailable Isckarus, Carmitaour Attending Unavailable Isckarus, Carmitaour Referring Unavailable Jack, Sadie Referring Unavailable Jack, Sadie Primary Care Unavailable FriendElliott Attending Unavailable Santiago Sellers Attending Unavailable Jack, Sadie Primary Care Unavailable Santiago Sellers Attending Unavailable Jack, Sadie Primary Care Unavailable Tobi Sellerse Referring Unavailable VeritoTobi rivase Attending Unavailable Jack, Sadie Primary Care Unavailable Jack, Sadie Referring Unavailable Jack, Sadie Primary Care Unavailable FriendElliott Attending Unavailable Isckarus, Quincy Attending Unavailable Ciesa MACHINE ROOM ENGINEER, [facility] Primary Care Unavailable Ciesa MACHINE ROOM ENGINEER, Kya Referring Unavailable Santiago Sellers Attending Unavailable Santiago Sellers Referring Unavailable Ciesa MACHINE ROOM ENGINEER, [facility] Primary Care Unavailable Santiago Sellers Attending Unavailable Jack, Sadie Referring Unavailable Jack, Sadie Primary Care Unavailable Spittle, James Attending Unavailable James Stephens Referring Unavailable Sadie Santiago Primary Care Unavailable Medications Current Medications Medication Drug Class(es) Dates Sig (Normalized) Sig (Original) acetaminophen 32 mg/ml oral solution (10 sources) Start: 11-13-2021 acetaminophen 160 mg/5 mL oral liquid ; 15 by gastrostomy tube every 8 hours Quantity: 0 Refills: 0 Ordered: 13-Nov-2021 Sam Baeza Start: 13-Nov-2021 Generic Substitution Allowed Start: 11-13-2021 [...] every six hours for pain RA Fever Dictaphone Transcriber/Pain Reliever 160 MG/5ML Oral Suspension take 20 milliliters by mouth every 6 hours if needed for pain Quantity: 480 Refills: 0 Start : 30-Jan-2019 Active acetaminophen 325 mg / HYDROcodone bitartrate 5 mg oral tablet (3 sources) Opioid Agonist Start: 12-15-2021 take 1 tablet by mouth every six hours as needed Hydrocodone-Acetaminophen Active 1 TABLET PO EVERY 6 HOURS NEEDED 10 December 15, 2021 1:43pm Start: 01-13-2019 take 1 [...] 31, 2019 12:00am February 01, 2019 12:07am Encounter for adjustment and management of vascular access device Start: 01-26-2019 End: 02-01-2019 take 1 tablet by mouth every four hours as needed Oxycodone-Acetaminophen Discontinued 1 - 2 TABLET PO EVERY 4 HOURS NEEDED 22 03January 25, 2019 11:00pm January 31, 2019 11:07pm amLODIPine 5 mg oral tablet (20 sources) Dihydropyridine Calcium Channel Syeda Start: 08-15-2021 take 1 tablet by mouth once daily Amlodipine 5 mg Tablet Active 5 mg PO DAILY January 23, 2022 12:00am bp Start: 08-15-2021 amLODIPine Bes ylate 5 MG [...] DAILY January 22, 2022 11:00pm Start: 09-26-2021 Fluticasone Pr opionate 50 mcg/actuation [place],Suspension Active 1 NMA INTRANASAL DAILY as needed for health maintenance January 23, 2022 12:00am Start: 09-26-2021 End: 03-06-2023 Fluticasone Propionate 50 [...] ug PO DAILY January 31, 2023 10:00am thyroid PATIENT DOESN'T KNOW THE STRENGTH. Start: 01-31-2023 [...] Quantity: 30 {Tablet} Refills: 0 Ordered: 29-Mar-2022 Jeana Gaspar DO Start : 29-Mar-2022 Active Start: 12-31-2020 Levothyroxine [...] 25, 2020 1:00am January 31, 2023 10:00am thyroid PATIENT DOESN'T KNOW THE STRENGTH. Start: 08-25-2020 [...] 2 Ordered: 29-Jun-2020 Kya Gonzalez CNP, CNP, Mary E Start : 29-Jun-2020 Active Comments: New dose [...] 2 of the 50mcg q MWa nd Fidays and 1 the other days, metroNIDAZOLE 250 [...] : 31-Oct-2021 End : 29-Dec-2021 Complete nystatin 156780 unt/ml oral suspension (20 sources) Polyene Antifungal [...] mL by mouth three times daily Nystatin 473896 UNIT/ML Mouth/Throat Suspension 5ml swish and spit three times a day for 14 days Quantity: 210 Refills: 0 Ordered: 12-Feb-2022 Rachel Brooks MD Start : 12-Feb-2022 End : 18-Jun-2022 Complete Start: 01-03-2022 Nystatin 01824 0 UNIT/ML Mouth/Throat Suspension Quantity: 112 Refills: 0 Ordered: 03-Jan-2022 DO Start : 03-Jan-2022 Active oxyCODONE hydrochloride 5 mg oral tablet (20 sources) Opioid Agonist Start: 05-23-2022 take 1 tablet by mouth twice daily as needed for pain Oxycodone 5 mg tablet Active 5 mg PO TWICE A DAY as needed for pain 0 May 23, 2022 12:00am Start: 05-03-2022 End: 05-10-2022 take 1 tablet by mouth every four hours as needed for pain Oxycodone 5 mg capsule Discontinued 5 mg PO Q4H as needed for pain 32 7 0 May 03, 2022 May 09, 2022 12:00am May 10, 2022 12:03am Malignant neoplasm of head and neck Malignant neoplasm of head, face and neck take one tab PO q4 hrs prn pain Start: 02-27-2022 End: 04-26-2022 take 1 tablet by mouth twice daily as needed for pain Oxycodone 5 mg capsule Discontinued 5 mg PO TWICE A DAY as needed for pain 60 30 0 March 27, 2022 April 25, 2022 12:00am April 26, 2022 12:04am 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 take one tab bid prn pain Start: 01-24-2022 End: 02-14-2022 take 1 tablet by mouth twice daily as needed for pain Oxycodone 5 mg capsule Discontinued 5 mg PO TWICE A DAY as needed for Mouth Pain 42 21 0 January 24, 2022 February 13, 2022 12:00am February 14, 2022 12:03am Malignant neoplasm of head and neck Malignant neoplasm of head, face and neck take one tab twice daily as needed for pain Start: 01-10-2022 End: 01-24-2022 take 1 tablet by mouth every four to six hours as needed for pain Oxycodone 5 mg capsule Discontinued 5 mg PO TWICE A DAY as needed for Mouth Pain 30 14 0 January 10, 2022 January 23, 2022 12:00am January 24, 2022 10:54am Malignant neoplasm of head and neck Malignant neoplasm of head, face and neck take one tab PO q4-6 hrs as needed for pain Start: 01-03-2022 End: 01-10-2022 take 1 capsule by mouth twice daily as needed for pain Oxycodone 5 mg Capsule Discontinued 5 mg PO TWICE A DAY as needed for Mouth Pain 14 7 0 January 03, 2022 January 10, 2022 11:59am Malignant neoplasm of head and neck Malignant neoplasm of head, face and neck Start: 11-13-2021 oxyCODONE ; 5 milligram(s) by [...] A DAY as needed for pain 30 14 0 December 20, 2021 January 02, 2022 12:00am January 03, 2022 12:03am 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 take one tab PO bid prn pain [...] Substitution Allowed Petrolatum (2 sources) Start: 11-13-19 petrolatum topical ; 1 application topically 3 times a day - to Incisions Quantity: 0 Refills: 0 Ordered: 13-Nov-2021 La Baez Start: 13-Nov-2021 Generic Substitution Allowed polyethylene glycol 3350 39542 mg powder for oral solution (7 sources) [...] 03/27/2022 Active Start: 03-27-2022 SSD 1 % Family Law Mediator al Cream Quantity: 85 Refills: 0 Ordered: 27-Mar-2022 DO Start : 27-Mar-2022 Active Start: 02-06-2022 End: 09-02-2023 Silver Sulfadiazine 1 % crea m Discontinued 1 NMA TOPICAL TWICE A DAY 85 March 27, 2022 9:39am September 02, 2023 10:20am Radiation dermatitis Radiodermatitis, unspecified skin peeling apply a 1.5 mm thickness to area [...] Active 3 g PO TWICE A DAY 60 January 25, 2022 12:00am Start: 01-25-2022 take 3 g by mouth twice daily Sodium Chloride Active 3 GM PO TWICE A DAY 60 January 24, 2022 11:00pm Terazosin (7 sources) [...] 02-26-2022 Start: 02-26-2022 take 1 capsule by mo [facility] once daily Vitamin E 400 UNIT Oral Capsule 1 (one) Capsule daily for 30 days Quantity: 30 {Capsule} Refills: 2 Ordered: 26-Feb-2022 Mirna Ricardo LPN Start : 26-Feb-2022 Active Start: 05-17-2021 End: 07-31-2022 take 1 tablet by mouth once daily Vitamin E Mixed 1,000 unit capsule Discontinued 1000 U PO DAILY 30 May 17, 2021 12:00am July 31, 2022 11:01am Radiation fibrosis radiation fibrosis take 1 tab PO daily VItamin E Active Completed/Discontinued Medications Medication Drug [...] Quantity: 1 {Each} Refills: 0 Ordered: 26-Feb-2022 Mirna Ricardo LPN Start : 26-Feb-2022 Active Comments: Please give one box Start: 12-10-2021 take 1.25 mg by inha lation every four hours as needed Albuterol Sulfate 1.25 mg/3 mL solution for nebulization Active 1.25 mg INHALATION Q4H as needed for bronchospasm 90 0 December 10, 2021 6:08pm albuterol 1.25 m [...] Start: 01-05-2019 take 2 tablets by mo ut once daily in the morning Disulfiram 250 [...] 100 mg PO TWICE A DAY 280 0 December 27, 2021 12:00am January 10, 2022 9:51am Cellulitis Delayed surgical wound healing Cellulitis, unspecified guaiFENesin 20 mg/ml oral solution (20 sources) Start: 04-30-2022 End: 02-13-2024 take 10 mL by mouth every four hours as needed for congestion Guaifenesin 100 mg/5 mL liquid Discontinued 200 mg PO Q4H as needed for congestion 473 6 April 30, 2022 12:00am February 13, 2024 [...] Amide Local Anesthetic Start: 01-05-2019 End: 04-05-2019 Start: 01-05-2019 End: 04-05-2019 Lidocaine-Prilocaine Discont inued [...] 25, 2019 12:00am May 19, 2019 11:46am Mucositis due to radiation therapy Malignant neoplasm of head and neck Oral mucositis (ulcerative) due to radiation Malignant neoplasm of head, face and neck Pharmacist: Compound with equal parts DiphenhydrAMINE, Mylanta, [...] Quantity: 42 {Patch} Refills: 0 Ordered: 05-Jan-2019 Kya Gonzalez Start : 05-Jan-2019 End : 16-Feb-2019 Inactive [...] 20 mg PO TWICE A DAY 60 30 10 April 28, 2018 12:00am December 19, 2018 9:06am ondansetron 8 mg disintegrating oral tablet (20 sources) Serotonin-3 Receptor Antagonist Start: 01-05-2019 End: 02-14-2019 take 1 tablet by mouth every eight hours as needed for nausea Oxycodone 5mg- 1-2 tabs Q 4-6hrs PRN [...] release oral tablet (20 sources) Blood Viscosity Dictaphone Transcriber Start: 10-20-2024 End: 02-02-2025 take 1 tablet by mouth twice daily at mealtime Pentoxifylline 400 mg tablet extended release Discontinued 400 mg PO TWICE A DAY October 20, 2024 1:00am February 02, 2025 9:32am radiation fibrosis must administer with a meal/food Start: 06-10-2023 Start: 04-22-2023 Start: 05-22-2022 Start: 04-23-2022 take 1 tablet by evgeny th once daily Pentoxifylline ER 400 MG Oral Tablet Extended Release 1 (one) Tablet daily for 0 days Quantity: 30 {Tablet} Refills: 0 Ordered: 24-Apr-2022 Corinne Santiago CNPyn Start : 24-Apr-2022 Active Start: 02-26-2022 take 1 tablet by evgeny th once daily Pentoxifylline ER 400 MG Oral Tablet Extended Release 1 (one) Tablet daily for 0 days Quantity: 30 {Tablet} Refills: 0 Ordered: 26-Feb-2022 Hubert DO Jeana Start : 26-Feb-2022 Active Start: 12-15-2021 take 1 tablet by evgeny th once daily Pentoxifylline ER 400 MG Oral Tablet Extended Release 1 (one) Tablet daily for 0 days Quantity: 30 {Tablet} Refills: 0 Ordered: 15-Dec-2021 Monica Kya Josefadanya Kya Start : 15-Dec-2021 Active Start: 05-17-2021 Pentoxifylline ER 400 MG Oral Tablet Extended Release Quantity: 90 Refills: 0 Ordered: 27-Sep-2021 DO Start : 17-May-2021 Active Start: 05-17-2021 End: 10-20-2024 take 1 tablet by mouth three times daily at mealtime Pentoxifylline 400 mg tablet extended release Discontinued 400 mg PO THREE TIMES A DAY 90 July 31, 2022 11:01am October 20, 2024 12:35pm Radiation fibrosis radiation fibrosis must administer with a meal/food pentoxifylline ( Trental) 400 mg ER tablet every 12 hours. Active take 1 tablet by evgeny once daily pentoxifylline 400 mg oral tablet, extended release ; 1 tab(s) oral once a day Quantity: 0 Refills: 0 Ordered: 31-Oct-2021 Tova Donahue Generic Substitution Allowed pilocarpine hydrochloride 5 mg oral tablet (20 sources) Cholinergic Receptor Agonist Start: 11-01-2022 End: 08-06-2024 take 1 tablet by mouth three times daily Pilocarpine Hcl 5 mg tablet Discontinued 5 mg PO THREE TIMES A DAY 90 5 November 01, 2022 1:00am August 06, 2024 10:40am Xerostomia due to radiotherapy Disturbances of salivary secretion xerostomia take one tab PO tid prochlorperazine 10 mg oral tablet (20 sources) Phenothiazine Start: 01-05-2019 End: 02-14-2019 take 1 tablet by mouth every six hours as needed for nausea RA Natural Vitamin E 268 MG (400 [...] Reductase Inhibitor Antibacterial, Sulfonamide Antimicrobial Start: 12-15-2021 Sulfamethoxazole- Trimethoprim 200-40 MG/5ML Oral Suspension Quantity: 120 Refills: 0 Ordered: 15-Dec-2021 DO Start : 15-Dec-2021 Active Start: 12-15-2021 End: 01-03-2022 Sulfamethoxazole-Trimethopri m 200-40 mg/5 mL suspension Discontinued 20 mL feeding tube TWICE A DAY 120 3 0 December 15, 2021 12:00am January 03, 2022 [...] Quantity: 30 {Capsule} Refills: 3 Ordered: 14-Dec-2019 Kris AUTUMNXavier Start : 02-Jan-2019 End : 14-Dec-2019 Inactive [...] anterior floor of mouth and madibleSurgeon Rachel Brooks, with flap Donor site from left fibula and Left Alt, (2-22) Cancer; other and unspecified primary (20 sources) [...] 97.7 Other lower respiratory disease (20 sources) Multiple [...] of skin; Translations: [Paresthesia of skin] Onset: 04-08-2025 Episodic Other nutritional; endocrine; and metabolic disorders (20 sources) Body mass index less than 20; Translations: [Body mass index (BMI) of 19.0-19.9 in adult] 03-13-2021 Episodic Other nutritional; endocrine; and metabolic disorders (20 sources) Decreased body mass index; Translations: [Body mass index [BMI] 19.9 or less, adult] 12-15-2021 Episodic Other nutritional; endocrine; and metabolic disorders (6 sources) Weight decreased; Translations: [Abnormal weight loss] [...] 04-13-2024 08-31-2024 Chronic Other upper respiratory disease (4 sources) Dysphonia; Translations: [Dysphonia] 01-18-2025 Episodic Residual [...] Resolved: 01-16-2023 03-13-2021 Episodic Comment on above: 2019 Secondary malignancies (20 sources) 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 Repeat labs Oct 06ne dx 7/20 Changing dose to 75 mcg dailynew dx 7/20 Changing dose to 75 mcg daily, repeat lab at Aug apt Sep 13new dx 7/20 Unclassified (20 sources) BMI 23.0-23.9, adult; Translations: [...] Radiation injury; 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] 05-17-2021 Unclassified (6 sources) Radiation fibrosis 05-17-2021 Past or Other [...] specified aftercare] Onset: 08-29-2023 08-31-2024 Episodic Other lower respiratory disease (20 sources) Solitary pulmonary nodule; Translations: [Nodule of lung] Onset: 10-20-2024 04-14-2020 Episodic Comment on above: repeat CT in a year November 2019 Other lower respiratory disease (20 sources) Other nonspecific abnormal finding of lung field; Translations: [Other nonspecific abnormal finding of lung field] Onset: 10-20-2024 Episodic Other non-traumatic joint disorders (20 sources) [...] and/or EMG Patienton NCS and/or EMG Patient [facility] Pulmonary Services/Neurology [address] [place] [address] MR#: [id number] Acct: [id number] Name: MY JAMA Rep #: [id number] : 1960 64 From: Loretta Rausch MD Referring Dr: James Stephens DO Status: REG C LI Location: [facility] Date: 03/31/25 Sex: M C NCS and/or EMG Patient Report Ordering Doctor: James Stephens DATE OF SERVICE: 03/31/25 My presents for electrodiagnostic testing of the right lower limb. He does not report any significant symptoms but requires further evaluation for polyneuropathy. Electrodiagnostic findings: Absent right peroneal and tibial motor responses. Absent right sural and superficial peroneal responses. H???reflexes prolonged bilaterally. Needle EMG testing was performed in the right lower limb. 1+ fibrillations noted in the right gastrocnemius. Electrodiagnostic impression: This is an abnormal study. 1. 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 Today's study is evaluated in conjunction with upper extremity testing which was performed on March 03, 2025. 2. There is no electrodiagnostic evidence for lumbosacral radiculopathy Multi Select Codes Neurology Neurology Interp Codes: 71211-56 Musc test done w/n test comp (interp) and 06398-27 Nrv cndj tst 5-6 studies (interp) 03/31/25 1533 Date Loretta Rausch MD CC: MACHINE ROOM ENGINEER-C Sadie Santiago; Dr. Loretta Rausch MD; Dr. James Stephens, Date Dictated: 03/31/251529 Date Transcribed: 03/31/251529 Leasing Professional: BROCK Signed Normal [facility] SP/HP.Ralph 03-29-2025 SP/HP.[facility] Speech Pathology [facility] [address] [place] [address] [address] [place] [id number] / REEVALUATION / MEDICARE RECERTIFICATION SPEECH THERAPY MR#: [id number] Acct: [id number] Name: MY JAMA Rep #: [id number] : 1960 64 From: Latosha Boyer M.A., [facility]-VACUUM DRIER OPERATOR Referring DrBianca: Dr. Santiago Sellers DO Insurance: AN[employer]M MEDICARE S[employer]IOR [employer] SELF PAY INSURANCE Visit History Visit Info Date of Eval: 03/17/24 Today is Visit #: 41 Insurance Date Limit: 03/25/25 Custom Furrier: SURJIT History Attending Doctor: Referring Doctor: Reason [...] intake. Hx of esophageal dysphagia managed by furniture packer, Dr. Akhtar, s/p EGD w/ botox injection [...] to pt reporting sensation of decreased neck ROM, increased stiffness of neck, and worsening swallow function. He has participated in 41 visits during this POC with implementation of myofascial release and jaw massage in junction w/ oropharyngeal strengthening, neck ROM, and jaw ROM exercise programs. The patient has progressed from full liquidized puree / thin liquid diet to liquidized purees with small lumps / thin liquids. He has demonstrated progress in neck ROM w/ left rotation at 43 degrees (improved 15 degrees since 03/19/2024) and right neck rotation at 42 degrees (improved 14 degrees from 03/19/2024). Pt has also improved jaw ROM (currently 45mm) by 4 degrees since 07/02/2024 w/ jaw stretching, massage, and myofascial release. In the past 5 visits, the patient has improved 4 degrees in R head rotation (03/17/2025 - 38 degrees, 03/25/2025 - 42 degrees), 6 degrees in L head rotation (03/17/2025 - 37 degrees, 03/25/2025 - 43 degrees), and 1mm in jaw opening (03/17/2025 - 45mm, 03/25/2025 - 46mm). VACUUM DRIER OPERATOR is completing this re- evaluation to request additional dysphagia therapy visits as pt has reached his insurance end date for authorized visits. He missed 1 visit due to unexpected plans coming up. 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 Normal [facility] NCS and/or EMG Patienton NCS and/or EMG Patient [facility] Pulmonary Services/Neurology [address] [place] [address] MR#: [id number] Acct: [id number] Name: MY JAMA Rep #: [id number] : 1960 64 From: Loretta Rausch MD Referring Dr: James Stephens DO Status: REG C LI Location: [facility] Date: 03/03/25 Sex: M C NCS [...] Multi Select Codes Neurology Neurology Interp Codes: 60383-75 Musc test done w/n test comp (interp) (2) and 86216-08 Nrv cndj test 11-12 studies (interp) 03/03/25 1528 Date Loretta Rausch MD CC: MACHINE ROOM ENGINEER-C Sadie Santiago; Dr. Loretta Rausch MD; Dr. James Stephens DO Date Dictated: 03/03/25 151 Date Transcribed: 03/03/251518 Leasing Professional: AA Signed Normal [facility] Gastroenterology Visit Repor [facility] 02-11-2025 Gastroenterology Visit Report [facility] Gastroenterology [address] [place] [address] OFFICE VISIT Date of Service: 02/11/25 MR#: [id number] Acct: [id number] Name: MY JAMA Rep #: [id number] : 1960 Provider: Elliott Akhtar DO Age/Sex: 64/M Location: [facility] Status: Signed Intake Vital Signs 01/05/25 11:22 [...] any questions or concerns at this time. [facility] Medical History Wears hearing aid Wears glasses [...] to the office today for follow up. 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 Normal [facility] Radiation Oncology Visiton 0 02-02-2025 Radiation Oncology Visit [facility] [address] [place] [address]. [place] [address] OFFICE VISIT Date of Service: 02/02/25928 MR#: [id number] Acct: [id number] Name: MY JAMA Rep #: [id number] : 1960 From: Santiago Sellers DO Age/Sex: 64/M Location: [facility] Status: Signed Intake Vital Signs 08/06/24 09:41 [...] 02/10/2019 ??? (more content not included)... Normal [facility] SP/HP.SPREEVon 01-21-2025 SP/HP.SPREEV [facility] Speech Pathology [facility] [address] [place] [address] / REEVALUATION / MEDICARE RECERTIFICATION SPEECH THERAPY MR#: [id number] Acct: [id number] Name: MY JAMA Rep #: [id number] : 1960 64 From: Latosha Boyer M.A., [facility]-VACUUM DRIER OPERATOR Referring Dr.: Dr. Santiago Sellers, Insurance: [employer]M MEDICARE S[employer]IOR [employer] SELF PAY INSURANCE Visit History Visit Info Date of Eval: 03/17/24 Visit: 1 Insurance Date Limit: 12/26/24 Custom Furrier: SURJIT Pascual Attending Doctor: Referring Doctor: Reason for Referral: [...] intake. Hx of esophageal dysphagia managed by furniture packer, Dr. Akhtar, s/p EGD w/ botox injection [...] current prescribed condition?: No Personal Preferred language: Citizen Of [place] Patient Allergies Allergies Allergies: Allergies No Known [...] measured fro (more content not included)... Normal [facility] Oncology Visit Reporton 12-22 Oncology Visit Report [facility] [address] [place] [address]. [place] [address] OFFICE VISIT Date of Service: 01/05/25 1103 MR#: [id number] Acct: [id number] Name: MY JAMA Rep #: [id number] : 1960 From: Quincy Simpson MD Age/Sex: 64/M Location: [facility] Status: Signed HPI Subjective Date of Service [...] FINDINGS: Supraclavicular: No acute process within the xjeyj-wr-ppbb. Body wall soft tissues: No acute process. [...] AE1-3 (AE1/AE3/PCK26) positive CK7 (OV-TL12/30) negative CK8 (86rkwiM41) positive, weak CK20 (KS20.8) negative TTF-1 (8G7G3/1) [...] 2019 PE (more content not included)... Normal [facility] Chest WITH Contraston 2024 Chest WITH Contrast [facility] Imaging Services [address] [place] [address]3051 Chest WITH Contrast MR#: [id number] Acct: [id number] Name: MY JAMA Rep #: [id number] : 1960 M 64 From: Nayely Whyte MD PCP: YARI Santillan Status: REG CLI Study: Chest WITH Contrast Date of Exam: 12/29/24 Exam# [id number] Ordering Dr: Quincy Simpson MD PROCEDURE: CHEST [...] within the right upper lobe. Reading Location: [facility] CC: YARI Santiago; Dr. Quincy Simpson MD Leasing Professional: Signed Normal [facility] Modified Barium Swallow [facility] 12-17-2024 Modified Barium Swallow Study [facility] Speech Pathology [address] [place] [address] Modified Barium Swallow Study MR#: [id number] Acct: [id number] Name: MY JAMA Rep #: [id number] : 1960 64 From: Latosha Boyer M.A. [facility]-VACUUM DRIER OPERATOR Verbal discussion with patient about POC 12/18/2024: VACUUM DRIER OPERATOR attempted to call the patient 12/17/[address] POC after interpretation of MBSS, but pt had phone difficulties. Pt came into the office 12/18/2024 for this discussion. Unfortunately, the patient is not a candidate for participation in [facility] (MDTP) following results of MBSS revealing silent aspiration. Pt also has contraindications including severe fibrosis, presence of trach, and esophageal dysphagia. VACUUM DRIER OPERATOR recommended continuing with therapy 3- 4X/week, X3-5 weeks for implementation of oropharyngeal strengthening, jaw ROM, and neck ROM exercises in junction w/ myofascial release. Pt is unable to attend therapy this coming Saturday, and the VACUUM DRIER OPERATOR is out of the office this upcoming Saturday. Myofascial release is best completed in a more intensive therapy model (VACUUM DRIER OPERATOR recommends 3-4X/week, X3-5 weeks) to be effective. Pt requested resuming dysphagia therapy after VACUUM DRIER OPERATOR submits re-evaluation as he would only be [...] intake. Hx of esophageal dysphagia managed by furniture packer, Dr. Akhtar, s/p EGD w/ botox injection [...] patient was interested in the program, so VACUUM DRIER OPERATOR recommended this MBSS as re- (more content not included)... Normal [facility] EGD Reporton 10-21-2024 EGD Report [facility] Medical Records Department [address] [place] [address] EGD Report MR#: [id number] Acct: [id number] Name: MY JAMA Rep #: [id number] : 1960 64 From: Elliott Akhtar DO PCP: Sadie Santiago, MACHINE ROOM ENGINEER-C Status:REG [facility] Patient Name: My Jama Procedure Date: 10/21/2024 [...] present medications. Procedure Code(s): --- Professional --- 55305, Esophagogastroduodenosc opy, flexible, transoral; with insertion of guide wire followed by passage of dilator(s) through esophagus over guide wire CPT copyright 2021 [employer]. All rights reserved. The codes documented in this report are preliminary and upon medical coder review may be revised to meet current compliance requirements. Elliott Akhtar DO 10/21/2024 7:30:22 AM This report has been signed electronically. Number of Addenda: 0 Note Initiated On: 10/21/2024 6:29 AM 10/21/24730 Date Elliott Akhtar DO Cosigner Signature: Date (if indicated) CC: MACHINE ROOM ENGINEERLulu Santiago; Elliott Akhtar DO Date Dictated: 10/21/24628 Date Transcribed: Leasing Professional: BK Signed [facility] MR/POSTOP.Bebo 10-21-2024 MR/POSTOP.[facility] Medical Records Department [address] [place] [address] Anesthesia Postop Eval I 10/21/24730 MR#: [id number] Acct: [id number] Name: MY JAMA Rep #: [id number] : 1960 64 From: Romulo OTT: YARI Santillan Status:[facility] Y Race: C Location: [address] Anesthesia: Postop Eval I Current Vital Signs [...] Eval 1 completed: Yes 10/21/24731 Date Romulo Manley Signature: Date CC: Signed Normal [facility] MR/DTSHTHXL2wz 10-21-2024 [facility] Medical Records Department [address] [place] [address] Anesthesia Postop Eval II 10/21/2433 MR#: [id number] Acct: [id number] Name: MY JAMA Rep #: [id number] : 1960 64 From: Ankit Clarke MD PCP: AYRI Santillan Status:[facility] Y Race: C Location: EN Anesthesia Postop [...] MD Cosigner Signature: Date CC: Signed Normal [facility] Oncology Visit Reporton Oncology Visit Report [facility] [address] [place] [address] OFFICE VISIT Date of Service: 09/28/24 1202 MR#: [id number] Acct: [id number] Name: MY JAMA Rep #: [id number] : 1960 From: Quincy Simpson MD Age/Sex: 64/M Location: [facility] Status: Signed HPI Subjective Date of Service [...] FINDINGS: Supraclavicular: No acute process within the jxcpc-oc-xets. Body wall soft tissues: No acute process. [...] AE1-3 (AE1/AE3/PCK26) positive CK7 (OV-TL12/30) negative CK8 (02gjlpR63) positive, weak CK20 (KS20.8) negative TTF-1 (8G7G3/1) [...] 2019 PE (more content not included)... Normal [facility] SP/HP.CECYSam 09-22-2024 SP[facility]HP.[facility] Speech Pathology [facility] [address] [place] [address]. [address] [place] [id number] / REEVALUATION / MEDICARE RECERTIFICATION SPEECH THERAPY MR#: [id number] Acct: [id number] Name: MY JAMA Rep #: [id number] : 1960 64 From: Latosha Boyer M.A., [facility]-VACUUM DRIER OPERATOR Referring DrBianca: Dr. Santiago Sellers DO Insurance: [employer]M MEDICARE S[employer]IOR [employer] SELF PAY INSURANCE Visit History Visit Info Date of Eval: 03/17/24 Visit: 23 Insurance Date Limit: 09/22/24 Custom Furrier: SURJIT History Attending Doctor: Referring Doctor: Reason [...] intake. Hx of esophageal dysphagia managed by furniture packer, Dr. Akhtar, s/p EGD w/ botox injection [...] current prescribed condition?: No Personal Preferred language: Citizen [place] Patient Allergies Allergies Allergies: Allergies No Known [...] patient will complete neck ROM exercises in [place] with myofascial release to improve and (more content not included)... Normal [facility] Chest Insp/Exp 2 Viewon 12-2 Chest Insp/Exp 2 View [facility] Imaging Services [address] [place], [place] [id number] Chest Insp/Exp 2 View MR#: [id number] Acct: [id number] Name: MY JAMA W Rep #: [id number] : 1960 M 64 From: Narendra Kincaid MD PCP: YARI Santillan Status: REG CLI Study: Chest Insp/Exp 2 View Date of Exam: 09/15/24 Exam# [id number] Ordering Dr: Loretta Jade [id number] STUDY: X-RAY CHEST REASON FOR EXAM: Male, [...] EST , CC: YARI Santiago; YARI Jade Leasing Professional: Signed Normal [facility] Chest Insp/Exp 2 View [facility] Imaging Services [address] [place] [address] Chest Insp/Exp 2 View MR#: [id number] Acct: [id number] Name: MY JAMA Rep #: [id number] : 1960 M 64 From: Narendra Kincaid MD PCP: YARI Santillan Status: REG CLI Study: Chest Insp/Exp 2 View Date of Exam: 09/15/24 Exam# [id number] Ordering Dr: Loretta Jade [id number] STUDY: X-RAY CHEST REASON FOR EXAM: Male, [...] EST , CC: YARI Santiago; YARI Jade Leasing Professional: Signed Normal [facility] International normalized rat io (INR) calculationOrdered By: Loretta Jade on 09-15-2024 INR Coag (Bld) [Relative time] 1.0 {INR} [facility] Operative Reporton Operative Report [facility] Medical Records Department [address] [place] [address] Operative Report 09/15/24 1122 MR#: [id number] Acct: [id number] Name: MY JAMA Rep #: [id number] : 1960 64 From: Loretta Jade MACHINE ROOM ENGINEER-C PCP: YARI Santillan Status:REG CLI Location: CT Problems Associated Problem List Diagnoses (1) Right upper lobe pulmonary nodule: Procedures Radiology Radiology CT Procedures: 57319 Biopsy Lung Operative Report (Standard) Operative Information Date of Procedure: 09/15/24 Pre-Operative Diagnosis: right upper lobe lung nodule Post-Operative Diagnosis: right upper lobe lung nodule Surgery/Procedure Performed: ct guided lung biopsy irrigation installation specialist: No Type of Anesthesia: IV Sedation Procedure [...] Jade; Dr. Quincy Simpson MD Signed Normal [facility] Partial Thromboplast Timeon 09-15-2024 aPTT Coag (Bld) [Time] 31.3 s Normal 24.1-36.2 [facility] Comment on above: Performed By: #### L 100.1900, L300.3900, L300.4310 ####[facility] [address] [place], [place], [id number] Platelet countOrdered By: Christal Jade on 09-15-2024 Platelets (Bld) [#/Vol] 291 10*3/uL Normal 150-450 [facility] Comment on above: Performed By: #### L 100.1900, L300.3900, L300.4310 ####[facility] [address] [place], [address] Prothrombin Time w/INRon INR Coag (PPP) [Relative time] 1.0 {INR} Normal [facility] Comment on above: Performed By: #### L 100.1900, L300.3900, L300.4310 ####[facility] [address] [place], [address] PT Coag (PPP) [Time] 12.8 s Normal 11.7-14.9 [facility] Comment on above: Performed By: #### L 100.1900, L300.3900, L300.4310 ####[facility] [address] [place], [address] Prothrombin timeOrdered By: Loretta Jade on 09-15-2024 PT Coag (PPP) [Time] 12.8 s 11.7-14.9 [facility] Special Stain Group IIon Special Stain Group II ------ Patient Age/Sex Location Account Attending Physician MY JAMA 64/M CT [id number] Dr. Quincy Simpson MD Specimen: [id number] Received: 09/15/24-1024 Status: ALEX Manley Num: [id number] Spec Type: ASP RAD Subm Dr: Dr. [...] Negative for malignant cells. Report called to Bianca Loretta Jade at 1025am on 09/15/24 Interstitial fibrosis and chronic inflammation are noted. Correlation with clinical, radiologic findings and appropriate follow up are necessary. MICROSCOPIC DESCRIPTION Slides are reviewed. GROSS DESCRIPTION Received is one container labeled with the patient name and designated "right upper lung nodule." The specimen consists of multiple irregular fragments of light mcmahon soft tissue that in aggregate measure 0.5 x .1 x <0.1 cm. Two touch imprints are also prepared at time of core biopsy. The specimen is totally submitted in one cassette. /SJ:twin 09/15/24 TC:5 [facility] [address], [address]: Patient Age/Sex Location Account Attending Physician MY JAMA 64/M CT [id number] Dr. Quincy Simpson MD Signed (signature on file) Dr. Laurent Cope MD 09/17/24 1223 Normal [facility] Comment on above: Performed By: #### P SSII ####[facility] [address] [place], [place], [id number] aPTT Coag (PPP) [Time]Ericka tyler By: Loretta Jade on 09-15-2024 aPTT Coag (Bld) [Time] 31.3 s 24.1-36.2 [facility] Oncology Visit Reporton 08-23 Oncology Visit Report [facility] [address] [place] [address] OFFICE VISIT Date of Service: 09/07/24 1341 MR#: [id number] Acct: [id number] Name: MY JAMA Rep #: [id number] : 1960 From: Quincy Simpson MD Age/Sex: 64/M Location: [facility] Status: Signed HPI Subjective Date of Service [...] FINDINGS: Supraclavicular: No acute process within the eilhl-ag-ewhu. Body wall soft tissues: No acute process. [...] AE1-3 (AE1/AE3/PCK26) positive CK7 (OV-TL12/30) negative CK8 (65qqfsX65) positive, weak CK20 (KS20.8) negative TTF-1 (8G7G3/1) [...] 2019 PE (more content not included)... Normal [facility] CREATININE FINGERSTICKon CREATININE WB < 1.0 Normal 0.70-1.30 [facility] Comment on above: Performed By: #### L 9100.0200 ####[facility] [address] [place], [address] EGFR WB > 60.0000 Normal >60 [facility] Comment on above: Performed By: #### L 9100.0200 ####[facility] [address] [place], [address] Chest WITH Contraston 2023 Chest WITH Contrast [facility] Imaging Services [address] [place] [address] Chest WITH Contrast MR#: [id number] Acct: [id number] Name: MY JAMA Rep #: [id number] : 1960 M 64 From: Bib ghosh MD PCP: Sadie Santiago, MACHINE ROOM ENGINEER-C Status: REG CLI Study: Chest WITH Contrast Date of Exam: 08/25/24 Exam# [id number] Ordering Dr: [place] [id number] STUDY: CT CHEST WITH CONTRAST REASON FOR [...] CC: YARI Santiago; Dr. Quincy Simpson MD Leasing Professional: Signed Normal [facility] Creatinine measurement at dsideOrdered By: Quincy Simpson on 08-25-2024 Bedside Creatinine < 1.0 mg/dL 0.70-1.30 [facility] EGFROrdered By: Quincy peters on 08-25-2024 Bedside Estimated GFR (eGFR) > 60.0000 mL/min >60 [facility] Gastroenterology Visit Repor ton 08-14-2024 Gastroenterology Visit Report [facility] [place] [facility] [address] [place] [address] OFFICE VISIT Date of Service: 08/14/24 MR#: [id number] Acct: [id number] Name: MY JAMA Rep #: [id number] : 1960 Provider: Elliott Friend, DO Age/Sex: 64/M Location: [facility] Status: Signed Intake Vital Signs 02/03/24 [...] to the office today for follow up. 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 No specimens collected. Modified Barium Swallow .11.16 Severe oropharyngeal dysphagia OV 08.14.24 pt reports continued difficulty swallowing, denies other GI symptoms of concern at this time. Exam Const General: cooperative and comfortable Nutritional Appearance: average body habitus a (more content not included)... Normal [facility] Radiation Oncology Visiton 1 10-06-2023 Radiation Oncology Visit [facility] [address] OFFICE VISIT Date of Service: 08/06/24937 MR#: [id number] Acct: [id number] Name: MY JAMA Rep #: [id number] : 1960 From: Santiago Sellers DO Age/Sex: 64/M Location: [facility] Status: Signed Intake Vital Signs 02/03/24 14:06 [...] 6996 cG (more content not included)... Normal [facility] SP/HP.CECYEEVosae 07-17-2024 SP/HP.SPRSANJIVV [facility] Speech Pathology [facility] [address] [place] [address]. [address] [place] [address] / REEVALUATION / MEDICARE RECERTIFICATION SPEECH THERAPY MR#: [id number] Acct: [id number] Name: MY JAMA Rep #: [id number] : 1960 64 From: Latosha Boyer M.A., [facility]-VACUUM DRIER OPERATOR Referring Dr.: Dr. Santiago Sellers DO Insurance: [employer]M MEDICARE S[employer] SELF PAY INSURANCE Visit History Visit Info Date of Eval: 03/17/24 Visit: 1 Custom Furrier: SURJIT History Attending Doctor: Referring Doctor: Reason [...] intake. Hx of esophageal dysphagia managed by furniture packer, Dr. Akhtar, s/p EGD w/ botox injection [...] current prescribed condition?: No Personal Preferred language: Citizen Of [place] Patient Allergies Allergies Allergies: Allergies No Known [...] 3- 5 (more content not included)... Normal [facility] Modified Barium Swallow Stud yon 06-24-2024 Modified Barium Swallow Study [facility] Speech Pathology [address] [place] [address] Modified Barium Swallow Study MR#: [id number] Acct: [id number] Name: MY JAMA Rep #: [id number] : 1960 64 From: Latosha Boyer M.A., [facility] Modified Barium Swallow Patient Information Study Date: [...] Result: 3= enters airways/above vocal folds/not ejected [place] Thick Liquid via small single sip: cup: [...] Tongue Contro (more content not included)... Normal [facility] PET/CT Tumor Base -Thigh Sub son 05-19-2024 PET/CT Tumor Base -Thigh Subs [facility] Imaging Services [address] [place], [place] [id number] PET/CT Tumor Base -Thigh Subs MR#: [id number] Acct: [id number] Name: MY JAMA Rep #: [id number] : 1960 M 63 From: Narendra Seay PCP: Status: REG RCR Study: PET/CT Tumor Base -Thigh Subs Date of Exam: Exam# [id number] Ordering Dr: [place] [id number] EXAMINATION: FDG PET CT HISTORY: 63-year-old male [...] this report are calculated using the exclusive [employer]. ([place].S. Patent No. [phone] B2 [phone] patent [phone]). Standardization and correction of the FDG SUV metric via [employer] technology allow for vendor non-specific objective quantitative examination comparison and optimization of the sensitivity and specificity of the FDG PET-CT examination. . [email or web address] Electronically Signed: Narendra Weathers DO at 9:51 EDT , CC: Dr. Quincy Simpson MD Leasing Professional: Signed Normal [facility] CBC W/Diff, Automatedon 04-24 Absolute Lymph 1.76 X10 3/uL Normal 0.83-4.51 [facility] Comment on above: Performed By: #### L 100.0100, L501.9520, L506.0400, L500.4050 #### [facility] Laboratory [address] [place], [address] Absolute Neut 5.0 X10 3/uL Normal 2.0-7.7 [facility] Comment on above: Performed By: #### L 100.0100, L501.9520, L506.0400, L500.4050 #### [facility] Laboratory [address] [place], [address] Basophils/100 WBC (Bld) 0.4 % Normal 0-1 [facility] Comment on above: Performed By: #### L 100.0100, L501.9520, L506.0400, L500.4050 #### [facility] Laboratory [address] [place], [address] Eosinophils/100 WBC (Bld) 0.5 % Normal 0-5 [facility] Comment on above: Performed By: #### L 100.0100, L501.9520, L506.0400, L500.4050 #### [facility] Laboratory [address] [place], [address] Erythrocyte distribution width (RBC) [Ratio] 13.2 % Normal 11.6-14.6 [facility] Comment on above: Performed By: #### L 100.0100, L501.9520, L506.0400, L500.4050 #### [facility] Laboratory [address] [place], [address] Hematocrit (Bld) [Volume fraction] 44.3 % Normal 40-54 [facility] Comment on above: Performed By: #### L 100.0100, L501.9520, L506.0400, L500.4050 #### [facility] Laboratory [address] [place], [address] Hemoglobin (Bld) [Mass/Vol] 14.6 g/dL Normal 13.0-16.5 [facility] Comment on above: Performed By: #### L 100.0100, L501.9520, L506.0400, L500.4050 #### [facility] Laboratory [address] [place], [address] IG% 0.400 Normal 0.0-0.9 [facility] Comment on above: Result Comment: IG% - Immature Granulocytes (promyelocytes, myelocytes and metamyelocytes) > 1% indicates that a LEFT SHIFT is Present. Performed By: #### L 100.0100, L501.9520, L506.0400, L500.4050 #### [facility] Laboratory [address] [place], [address] Lymphocytes/100 WBC (Bld) 23.6 % Normal 19-41 [facility] Comment on above: Performed By: #### L 100.0100, L501.9520, L506.0400, L500.4050 #### [facility] Laboratory [address] [place], [address] MCH (RBC) [Entitic mass] 30.2 pg Normal 27.0-32.0 [facility] Comment on above: Performed By: #### L 100.0100, L501.9520, L506.0400, L500.4050 #### [facility] Laboratory [address] [place], [address] MCHC (RBC) [Mass/Vol] 33.0 g/dL Normal 32-36 [facility] Comment on above: Performed By: #### L 100.0100, L501.9520, L506.0400, L500.4050 #### [facility] Laboratory [address] [place], [address] MCV (RBC) [Entitic vol] 91.7 fL Normal 80-94 [facility] Comment on above: Performed By: #### L 100.0100, L501.9520, L506.0400, L500.4050 #### [facility] Laboratory [address] [place], [address] Monocytes/100 WBC (Bld) 8.2 % Normal 0-10 [facility] Comment on above: Performed By: #### L 100.0100, L501.9520, L506.0400, L500.4050 #### [facility] [address] [place], [address] Neutrophils/100 WBC (Bld) 66.9 % Normal 47-70 [facility] Comment on above: Performed By: #### L 100.0100, L501.9520, L506.0400, L500.4050 #### [facility] [address] [place], [address] Nucleated RBC (Bld) [#/Vol] 0 10*3/uL Normal 0-5 [facility] Comment on above: Performed By: #### L 100.0100, L501.9520, L506.0400, L500.4050 #### [facility] Laboratory [address] [place], [address] Platelet mean volume (Bld) [Entitic vol] 9.8 fL Normal 6.2-12.0 [facility] Comment on above: Performed By: #### L 100.0100, L501.9520, L506.0400, L500.4050 #### [facility] Laboratory [address] [place], [address] Platelets (Bld) [#/Vol] 339 10*3/uL Normal 150-450 [facility] Comment on above: Performed By: #### L 100.0100, L501.9520, L506.0400, L500.4050 #### [facility] Laboratory [address] [place], [address] RBC (Bld) [#/Vol] 4.83 10*6/uL Normal 4.6-6.2 [facility] Comment on above: Performed By: #### L 100.0100, L501.9520, L506.0400, L500.4050 #### [facility] Laboratory [address] [place], [address] RDW SD 44.9 fl High 35.1-43.9 [facility] Comment on above: Performed By: #### L 100.0100, L501.9520, L506.0400, L500.4050 #### [facility] Laboratory [address] [place], [address] WBC (Bld) [#/Vol] 7.5 10*3/uL Normal 4.4-11.0 [facility] Comment on above: Performed By: #### L 100.0100, L501.9520, L506.0400, L500.4050 #### [facility] Laboratory [address] [place], [address] Comprehensive Metabolic Prof ilon 05-13-2024 Albumin [Mass/Vol] 3.3 g/dL Normal 3.2-5.0 [facility] Comment on above: Performed By: #### L 100.0100, L501.9520, L506.0400, L500.4050 #### [facility] [address] [place], [address] Albumin/Globulin [Mass ratio] 0.7 {ratio} Low 0.9-2.4 [facility] Comment on above: Performed By: #### L 100.0100, L501.9520, L506.0400, L500.4050 #### [facility] Laboratory [address] [place], [address] ALK P 92 U/L Normal 45-117 [facility] Comment on above: Performed By: #### L 100.0100, L501.9520, L506.0400, L500.4050 #### [facility] [address] [place], [address] ALT [Catalytic activity/Vol] 20 U/L Normal 16-61 [facility] Comment on above: Performed By: #### L 100.0100, L501.9520, L506.0400, L500.4050 #### [facility] [address] [place], [address] AST [Catalytic activity/Vol] 20 U/L Normal 15-37 [facility] Comment on above: Performed By: #### L 100.0100, L501.9520, L506.0400, L500.4050 #### [facility] Laboratory [address] [place], [address] Bilirubin [Mass/Vol] 0.40 mg/dL Normal 0.20-1.00 [facility] Comment on above: Result Comment: For patients on eltrombopag therapy, use of Dimension [place] TBIL is not recommended. Performed By: #### L 100.0100, L501.9520, L506.0400, L500.4050 #### [facility] Laboratory [address] [place], [address] BUN/CRE 21.5 RATIO High 10-20 [facility] Comment on above: Performed By: #### L 100.0100, L501.9520, L506.0400, L500.4050 #### [facility] [address] [place], [address] CA,Total 9.4 mg/dL Normal 8.5-10.1 [facility] Comment on above: Performed By: #### L 100.0100, L501.9520, L506.0400, L500.4050 #### [facility] [address] [place], [address] Chloride [Moles/Vol] 102 mmol/L Normal 98-107 [facility] Comment on above: Performed By: #### L 100.0100, L501.9520, L506.0400, L500.4050 #### [facility] [address] [place], [address] CO2 [Moles/Vol] 31.0 mmol/L Normal 21.0-32.0 [facility] Comment on above: Performed By: #### L 100.0100, L501.9520, L506.0400, L500.4050 #### [facility] Laboratory [address] [place], [address] Creatinine [Mass/Vol] 0.46 mg/dL Low 0.70-1.30 [facility] Comment on above: Result Comment: The validity of the calculated GFR GFRAA in patients over 70 years has not been determined. Clinical correlation is essential. Performed By: #### L 100.0100, L501.9520, L506.0400, L500.4050 #### [facility] Laboratory [address] [place], [address] ECRCL 141.87 ml/min Normal [facility] Comment on above: Performed By: #### L 100.0100, L501.9520, L506.0400, L500.4050 #### [facility] [address] [place], [address] EST GFR - AA 236 mL/min Normal >60 [facility] Comment on above: Result Comment: Afri can Colombian GFR Calc Performed By: #### L 100.0100, L501.9520, L506.0400, L500.4050 #### [facility] Laboratory [address] [place], [address] GAP 3 Low 5-15 [facility] Comment on above: Performed By: #### L 100.0100, L501.9520, L506.0400, L500.4050 #### [facility] Laboratory [address] [place], [address] GFR/1.73 sq M.predicted among non-blacks MDRD (S/P/Bld) [Vol rate/Area] 195 mL/min/{1.73_m2} Normal >60 [facility] Comment on above: Result Comment: Non- GFR Calc Performed By: #### L 100.0100, L501.9520, L506.0400, L500.4050 #### [facility] Laboratory [address] [place], [address] Globulin (S) [Mass/Vol] 4.8 g/dL High 2.2-4.2 [facility] Comment on above: Performed By: #### L 100.0100, L501.9520, L506.0400, L500.4050 #### [facility] [address] [place], [address] Glucose [Mass/Vol] 110 mg/dL High 74-106 [facility] Comment on above: Result Comment: Fast ing Glucose result from 100 to 125 mg/dL suggests IMPAIRED HOMEOSTASIS per A.D.A. criteria. Performed By: #### L 100.0100, L501.9520, L506.0400, L500.4050 #### [facility] [address] [place], [address] Potassium [Moles/Vol] 3.9 mmol/L Normal 3.5-5.1 [facility] Comment on above: Performed By: #### L 100.0100, L501.9520, L506.0400, L500.4050 #### [facility] [address] [place], [address] Sodium [Moles/Vol] 136 mmol/L Normal 136-145 [facility] Comment on above: Performed By: #### L 100.0100, L501.9520, L506.0400, L500.4050 #### [facility] Laboratory [address] [place], [address] T PROT 8.1 g/dL Normal 6.4-8.2 [facility] Comment on above: Performed By: #### L 100.0100, L501.9520, L506.0400, L500.4050 #### [facility] Laboratory [address] [place], [address] Urea nitrogen [Mass/Vol] 10 mg/dL Normal 7-18 [facility] Comment on above: Performed By: #### L 100.0100, L501.9520, L506.0400, L500.4050 #### [facility] Laboratory [address] [place], [address] Oncology Visit Reporton 04-24 Oncology Visit Report [facility] [address] [place] [address] OFFICE VISIT Date of Service: 05/13/24 1141 MR#: [id number] Acct: [id number] Name: MY JAMA Rep #: [id number] : 1960 From: Quincy Simpson MD Age/Sex: 63/M Location: [facility] Status: Signed HPI Subjective Date of Service [...] FINDINGS: Supraclavicular: No acute process within the ixzim-vw-hwbm. Body wall soft tissues: No acute process. [...] AE1-3 (AE1/AE3/PCK26) positive CK7 (OV-TL12/30) negative CK8 (51oyarN15) positive, weak CK20 (KS20.8) negative TTF-1 (8G7G3/1) [...] exam June (more content not included)... Normal [facility] T4 Free Directon 05-13-2024 T4 FREE DIRECT 1.18 ng/dL Normal 0.76-1.46 [facility] Comment on above: Performed By: #### L 100.0100, L501.9520, L506.0400, L500.4050 ####[facility] [address] [place], [address] Thyroid Stim Hormone (TSH)on 05-13-2024 TSH 2.570 uIU/mL Normal 0.358-3.74 0 [facility] Comment on above: Performed By: #### L 100.0100, L501.9520, L506.0400, L500.4050 #### [facility] Laboratory [address] [place], [address] CREATININE FINGERSTICKon CREATININE WB < 1.0 Normal 0.70-1.30 [facility] Comment on above: Performed By: #### L 9100.0200 ####[facility] [address] [place], [address] EGFR WB > 60.0000 Normal >60 [facility] Comment on above: Performed By: #### L 9100.0200 ####[facility] [address] [place], [address] Chest WITH Contraston 2023 Chest WITH Contrast [facility] Imaging Services [address] [place] [address] Chest WITH Contrast MR#: [id number] Acct: [id number] Name: MY JAMA Rep #: [id number] : 1960 M 63 From: Bib ghosh MD PCP: Sadie Santiago NP-C Status: REG CLI Study: Chest WITH Contrast Date of Exam: 05/06/24 Exam# [id number] Ordering Dr: [place] [id number] STUDY: CT CHEST WITH CONTRAST REASON FOR [...] Reeves MD at 15:44 EDT , CC: MACHINE ROOM ENGINEERLulu Santiago; Dr. Quincy Simpson MD Leasing Professional: Signed Normal [facility] Soft Tissue Neck WITH Contra ston 05-06-2024 Soft Tissue Neck WITH Contrast [facility] Imaging Services [address] [place] [address] Soft Tissue Neck WITH Contrast MR#: [id number] Acct: [id number] Name: MY JAMA Rep #: [id number] : 1960 M 63 From: Bib ghosh MD PCP: Sadie Santiago NP-C Status: REG CLI Study: Soft Tissue Neck WITH Contrast Date of Exam: 0 05/06/24 Exam# [id number] Ordering Dr: [place] [id number] STUDY: CT SOFT TISSUE NECK WITH CONTRAST [...] face. Normal bilateral parotid glands. Normal bilateral storage management consultant spaces. Normal bilateral parapharyngeal spaces. Normal bilateral [...] CC: YARI Santiago; Dr. Quincy Simpson MD Leasing Professional: Signed [facility] XR CHEST 2 VIEWSon XR CHEST 2 VIEWS Interpreted By: Asa Macdonald, STUDY: XR CHEST 2 VIEWS INDICATION: Signs/Symptoms:cancer surveillance, aspiration. COMPARISON: November 13, 2021 ACCESSION NUMBER(S): [id number] ORDERING CLINICIAN: RACHEL BROOKS FINDINGS: No consolidation, effusion, edema, or pneumothorax. Tracheostomy tube again noted. IMPRESSION: No evidence of acute intrathoracic abnormality. Signed by: Asa Joshi 09/05/2023 1:51 PM Dictation workstation: [id number] [facility] Basophil percentageOrdered B y: Quincy Simpson on 07-29-2023 Basophil percentage < 0.9 mg/dL 0.70-1.30 [facility] No Panel InformationOrdered By: Quincy Simpson on 07-29-2023 Bedside Estimated GFR (eGFR) > 60.0000 mL/min >60 [facility] CBC, PLATELETS & AUT DIFF ([phone])Ordered By: Financial Processing Clerk on 07-22-2023 Basophils (Bld) [#/Vol] 0.0 10*3/uL [...] MCHC (RBC) [Mass/Vol] 33.5 g/dL Normal 31.5-35.7 [facility]; [facility] Work Phone: MCV (RBC) [Entitic vol] 92 fL Normal 79-97 [facility]; [facility] Work Phone: Monocytes (Bld) [#/Vol] 0.5 10*3/uL Normal 0.1-0.9 [facility]; [facility] Work Phone: Monocytes/100 WBC (Bld) 8 % Normal [facility]; [facility] Work Phone: Neutrophils (Bld) [#/Vol] 4.2 10*3/uL Normal 1.4-7.0 [facility]; [facility] Work Phone: Neutrophils/100 WBC (Bld) 70 % Normal [facility] Internal Medicine; [facility] Work Phone: Platelets (Bld) [#/Vol] 284 10*3/uL Normal 150-450 [facility]; [facility] Work Phone: RBC (Bld) [#/Vol] 4.29 10*6/uL Normal 4.14-5.80 [facility]; [facility] Work Phone: WBC (Bld) [#/Vol] 6.0 10*3/uL Normal 3.4-10.8 [facility] Internal Medicine; [facility] Work Phone: METABOLIC PANEL, COMPREHENSI VE ([phone])Ordered By: Financial Processing Clerk on 07-22-2023 Albumin [Mass/Vol] 4.2 g/dL Normal 3.9-4.9 [facility] Internal [facility]; [facility] Work Phone: Albumin/Globulin [Mass ratio] 1.4 {ratio} Normal 1.2-2.2 [facility]; [facility] Work Phone: ALP [Catalytic activity/Vol] 103 U/L Normal 44-121 [facility]; [facility] Work Phone: ALT [Catalytic activity/Vol] 15 U/L Normal 0-44 [facility]; [facility] Internal Medicine Work Phone: AST [Catalytic activity/Vol] 20 U/L Normal 0-40 [facility] Internal Medicine; [facility] Medicine Work Phone: Bilirubin [Mass/Vol] 0.4 mg/dL Normal 0.0-1.2 [facility]; [facility] Work Phone: Calcium [Mass/Vol] 9.4 mg/dL Normal 8.6-10.2 [facility] Internal Medicine; [facility] Internal Medicine Work Phone: Chloride [Moles/Vol] 101 mmol/L Normal 96-106 [facility] Internal Medicine; [facility] Medicine Work Phone: CO2 [Moles/Vol] 26 mmol/L Normal 20-29 [facility] Internal Medicine; [facility] Internal Medicine Work Phone: Creatinine [Mass/Vol] 0.49 mg/dL Abnormal 0.76-1.27 [facility] [place] Internal Medicine; [facility] Internal Medicine Work Phone: Globulin (S) [Mass/Vol] 2.9 g/dL Normal 1.5-4.5 [facility]; [facility] Internal Medicine Work Phone: Glucose [Mass/Vol] 108 mg/dL Abnormal 70-99 [facility] Internal Medicine; [facility] Internal Medicine Work Phone: Potassium [Moles/Vol] 4.4 mmol/L Normal 3.5-5.2 [facility] [place] Internal Medicine; [facility] Internal Medicine Work Phone: Protein [Mass/Vol] 7.1 g/dL Normal 6.0-8.5 [facility] Internal Medicine; [facility] Internal Medicine Work Phone: Sodium [Moles/Vol] 140 mmol/L Normal 134-144 [facility] Internal Medicine; [facility] Internal Medicine Work Phone: Urea nitrogen [Mass/Vol] 14 mg/dL Normal 8-27 [facility] Internal Medicine; [facility] Work Phone: Urea nitrogen/Creatinine [Mass ratio] 29 mg/mg Abnormal 10-24 [facility] Internal Medicine; [facility] Internal Medicine Work Phone: METABOLIC PANEL, COMPREHENSIVE ([phone]) 117 mL/min/1.73 Normal [facility]; [facility] Work Phone: THYROXINE FREE ([phone])Ordere d By: Financial Processing Clerk on 07-22-2023 Free T4 [Mass/Vol] 1.44 ng/dL Normal 0.82-1.77 Compre [facility] Internal Medicine; [facility] Work Phone: TSH (THYROID STIMULATING HOR NIK) ([id number])Ordered By: Financial Processing Clerk on 07-22-2023 TSH Qn 2.430 {uIU/mL} Normal 0.450-4.50 0 [facility]; [facility] Work Phone: Office Visit (Audiology)on 04-25-2023 Follow-up visit Diagnoses/Problems Bilateral sensorineural hearing [...] Allergies No Known Drug Allergies Recorded By: Chritsine Boucher; 01/19/2019 9:58:46 AM Current Meds Medication [...] Apr 25 2023 4:16PM EST (Author) Normal [facility] Office Visit (Audiology)on 04-04-2023 Follow-up visit Diagnoses/Problems [...] Nom (Unsp spec) No anaerobic bacteria isolated. [facility] Gram stain for investigation of transfusion reactionOrdered By: Joya Galvez on 04-03-2023 Microscopic observation Gram stain Nom (Unsp spec) [facility] Routine wound cultureOrdered By: Joya Galvez on 04-03-2023 Bacteria identified Cx Nom (Wound) No growth aerobically. [facility] Office Visit (Audiology)on 0 03-14-2023 Follow-up visit [...] Mar 14 2023 2:08PM EST (Author) Normal [facility] Initial Visit (Otolaryngolog y)on 03-06-2023 Initial Visit [...] as other doctors in his home in [place]. He has had routine follow-ups on his [...] Capsule Vitals Vital Signs Recorded: 06Mar2023 08:52AM Qvjoiflxutm38.4 F Heart Rate76 Jbkypffz986 Uagfgdhuw34 Height5 ft 5.5 in Gpgigb909 lb BMI Dwjwdntxev03.48 kg/m2 BSA Calculated1.63 Tobacco Useb) No Falls [...] conjunctivitis. EAR (more content not included)... Normal [facility] Office Visit (Audiology)on 03-06-2023 Follow-up visit Diagnoses/Problems [...] hearing loss for both ears. Speech: Speech receptionist thresholds were in good agreement with pure tone testing. Speech discrimination results were good at elevated presentation levels. Signatures Electronically signed by : Aleks Quiroz; Mar 06 2023 9:30AM EST (Author) Normal [facility] Tobacco Screening.on 023 Fall risk assessment a) No falls within the last year [facility] Work Phone: Tobacco use status CP b) No M [facility] Work Phone: Established Visit (Otolaryng ology)on 02-25-2023 [...] here for cancer follow up. He has E2A5zH1 oral cavity SCCa s/p triple, trach, PEG, [...] He continues to be followed at the [place] wound clinic. Continues with [facility] XLT, caps during day. Wound has continued to heal very slowly but is smaller. He comes in today with a new XLT trach for his trach change since we didn't have one in clinic last month. No other concerns. Overall doing ok. 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 Patient completed adjuvant chemoradiation on 02/06/22. History: Dx1: OeQ9jC2 left neck (unknown primary) 2018 Dx2: [id number] SCCa of the oral cavity 202004/28/18: +odynophagia, [...] no lymphadenopathy 09/12: Oral cavity biopsy at [facility] +SCCa 10/14: PET FDG avid oral cavity [...] entries m (more content not included)... Normal [employer] Tobacco Screening.on 023 Adult depression screening assessment No MG-Otolaryn gol [employer] Work Phone: Fall risk assessment a) No falls within the last year MG-Otolaryngol [employer] Work Phone: Tobacco use status CPHS b) No M G-Otolaryngol [employer] Work Phone: Anaerobic cultureOrdered By: Joya Galvez on 02-17-2023 Bacteria identified Anaer cx Nom (Unsp spec) No anaerobic bacteria isolated. [facility] Bacteria identified Cx Nom ( Wound)Ordered By: Joya Galvez on 02-15-2023 Wound Culture Staphylococcus aureus [facility] Gram stain for investigation of transfusion reactionOrdered By: Joya Galvez on 02-14-2023 Microscopic observation Gram stain Nom (Unsp spec) [facility] Anaerobic cultureOrdered By: Joya Galvez on 02-13-2023 Bacteria identified Anaer cx Nom (Unsp spec) No anaerobic bacteria isolated. [facility] Bacteria identified Cx Nom ( Wound)Ordered By: Joya Galvez on 02-13-2023 Wound Culture Staphylococcus aureus [facility] Gram stain for investigation of transfusion reactionOrdered By: Joya Galvez on 02-13-2023 Microscopic observation Gram stain Nom (Unsp spec) [facility] Basophil percentageOrdered B y: Dr. 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 MY JAMA, is here for cancer follow up. He has D2V6mX5 oral cavity SCCa s/p triple, trach, PEG, [...] Chief Complaint follow up History of Present IllnessMr. MY JAMA, is a 62 year old male here for a followup regarding his open anterior neck wound. Last seen 06/14. He continues to be followed at the [place] wound clinic. Continues with Amber SCOTT caps during day. Wound has continued to heal very slowly but is smaller. 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 Patient completed adjuvant chemoradiation on 02/06/22. History: Dx1: [id number] left neck (unknown primary) 2018 Dx2: [id number] SCCa of the oral cavity 202004/28/18: +odynophagia, [...] no lymphadenopathy 09/12: Oral cavity biopsy at [facility] +SCCa 10/14: PET FDG avid oral cavity [...] daughter By signing my name below, I, Violeta Bradenibe, attest that this documentation has been prepared under the direction and in the presence of Dr. Rachel Brooks MD. All medical record entries made by the Scribe were at my direction and personally dictated by me, Dr. Siegel (more content not included)... Normal [employer] [facility] No Panel InformationOrdered By: Dr. Sellers on 01-28-2023 Bedside Estimated GFR (eGFR) > 60.0000 mL/min >60 [facility] Tobacco Screening.on 023 Fall risk assessment a) No falls within the last year [facility]-Otolaryngol [facility] [facility] Work Phone: Tobacco use status CPHS b) No M G-Otolaryngol [facility] [facility] Work Phone: LIPID PANEL ([id number])Ordered B y: Financial Processing Clerk on 01-17-2023 Cholesterol [Mass/Vol] 130 mg/dL Normal 100-199 [facility] Work Phone: Cholesterol in HDL [Mass/Vol] 43 mg/dL Normal [facility]; [facility] Work Phone: Triglyceride [Mass/Vol] 59 mg/dL Normal 0-149 [facility] Work Phone: LIPID PANEL ([phone]) 13 mg/dL Normal 5-40 [facility]; [facility] Work Phone: LIPID PANEL ([id number]) 74 mg/dL Normal 0-99 [facility] Work Phone: LIPID PANEL ([id number]) 1.7 {ratio} Normal 0.0-3.6 [facility]; [facility] Work Phone: THIAMINE (B-1) ([id number])Ordere d By: Financial Processing Clerk on 01-17-2023 Thiamine (Bld) [Moles/Vol] 148.3 nmol/L Normal 66.5-200.0 [facility] Work Phone: TSH (THYROID STIMULATING HOR NIK) ([id number])Ordered By: Financial Processing Clerk on 01-17-2023 TSH Qn 0.172 {uIU/mL} Abnormal 0.450-4.50 0 [facility] Work Phone: VITAMIN B12 AND FOLATES ([phone])Ordered By: Financial Processing Clerk on 01-17-2023 Cobalamin (Vitamin B12) [Mass/Vol] 640 pg/mL Normal 232-1245 [facility]; [facility] Work Phone: Folate [Mass/Vol] ng/mL Normal [facility]; [facility] Work Phone: Bacteria identified Anaer cx Nom (Unsp spec)Ordered By: Joya Galvez on 01-13-2023 Anaerobic Culture Anaerobic cocci [facility] Bacteria identified Cx Nom ( Wound)Ordered By: Joya Galvez on 01-12-2023 Wound Culture Pseudomonas aeruginosa [facility] Wound Culture Meth. resistant Stap h. aureus [facility] Gram stain for investigation of transfusion reactionOrdered By: Joya Galvez on 01-10-2023 Microscopic observation Gram stain Nom (Unsp spec) [facility] Bacteria identified Anaer cx Nom (Unsp spec)Ordered By: Joya Galvez on 01-09-2023 Anaerobic Culture Anaerobic cocci [facility] Bacteria identified Cx Nom ( Wound)Ordered By: Joya Galvez on 01-09-2023 Wound Culture Pseudomonas aeruginosa [facility] Wound Culture Meth. resistant Stap h. aureus [facility] Gram stain for investigation of transfusion reactionOrdered By: Joya Galvez on 01-09-2023 Microscopic observation Gram stain Nom (Unsp spec) [facility] Absolute lymphocyte countOrd ered By: Dr. Simpson on 11-21-2022 Lymphocytes Auto (Unsp spec) [#/Vol] 1.62 10*3/uL 0.83-4.51 [facility] Basophil percentageOrdered B y: Dr. Simpson on 11-21-2022 Basophils/100 WBC (Bld) 0.4 % 0-1 [facility] Bilirubin [Mass/Vol] 0.20 mg/dL 0.20-1.00 [facility] Comment on above: For patients on eltr ombopag therapy, use of Dimension [place] TBIL is not recommended. Chloride [Moles/Vol] 103 mmol/L 98-107 [facility] Eosinophils/100 WBC (Bld) 0.6 % 0-5 [facility] Glucose [Mass/Vol] 105 mg/dL 74-106 [facility] Comment on above: Fasting Glucose resu lt from 100 to 125 mg/dL suggests IMPAIRED HOMEOSTASIS per A.D.A. criteria. Neutrophils (Bld) [#/Vol] 3.2 10*3/uL 2.0-7.7 [facility] Neutrophils/100 WBC (Bld) 58.7 % 47-70 [facility] Potassium [Moles/Vol] 4.3 mmol/L 3.5-5.1 [facility] Protein [Mass/Vol] 7.8 g/dL 6.4-8.2 [facility] Sodium [Moles/Vol] 139 mmol/L 136-145 [facility] WBC (Bld) [#/Vol] 5.4 10*3/uL 4.4-11.0 [facility] Blood erythrocytes count (nu mber/volume)Ordered By: Dr. Simpson on 11-21-2022 RBC (Bld) [#/Vol] 4.37 10*6/uL 4.6-6.2 [facility] Blood hemoglobin measurement (mass/volume)Ordered By: Dr. Simpson on 11-21-2022 Hemoglobin (Bld) [Mass/Vol] 12.8 g/dL 13.0-16.5 [facility] Blood lymphocytes/100 leukoc ytesOrdered By: Dr. Simpson on 11-21-2022 Lymphocytes/100 WBC (Bld) 29.8 % 19-41 [facility] Blood monocytes/100 leukocyt esOrdered By: Dr. Simpson on 11-21-2022 Monocytes/100 WBC (Bld) 10.1 % 0-10 [facility] Blood platelet mean volumeOr dered By: Dr. Simpson on 11-21-2022 Platelet mean volume (Bld) [Entitic vol] 10.7 fL 6.2-12.0 [facility] Determination of erythrocyte mean corpuscular volume (MCV)Ordered By: Dr. Simpson on 11-21-2022 MCV (RBC) [Entitic vol] 92.2 fL 80-94 [facility] Hematocrit Auto (Bld) [Volum e fraction]Ordered By: Dr. Simpson on 11-21-2022 Hematocrit (Bld) [Volume fraction] 40.3 % 40-54 [facility] Laboratory - Chemistry and C hemistry - challengeOrdered By: Dr. Simpson on 11-21-2022 ALP [Catalytic activity/Vol] 108 U/L 45-117 [facility] ALT [Catalytic activity/Vol] 26 U/L 16-61 [facility] CO2 [Moles/Vol] 31.0 mmol/L 21.0-32.0 [facility] Globulin (S) [Mass/Vol] 4.4 g/dL 2.2-4.2 [facility] Urea nitrogen/Creatinine [Mass ratio] 39.5 mg/mg 10-20 [facility] Laboratory - Hematology and Cell countsOrdered By: Dr. Simpson on 11-21-2022 Erythrocyte distribution width (RBC) [Entitic vol] 47.3 fL 35.1-43.9 [facility] Erythrocyte distribution width (RBC) [Ratio] 13.9 % 11.6-14.6 [facility] Immature granulocytes/100 WBC (Bld) 0.400 % 0.0-0.9 [facility] Comment on above: IG% - Immature Granu locytes (promyelocytes, myelocytes and metamyelocytes) > 1% indicates that a LEFT SHIFT is Present. MCH (RBC) [Entitic mass] 29.3 pg 27.0-32.0 [facility] Nucleated RBC/100 WBC (Bld) [Ratio] 0 % 0-5 [facility] MCHC Auto (RBC) [Mass/Vol]Or dered By: Dr. Simpson on 11-21-2022 MCHC (RBC) [Mass/Vol] 31.8 g/dL 32-36 [facility] No Panel InformationOrdered By: Dr. Simpson on 11-21-2022 Estimated Creatinine Clearance Calc 139.13 ml/min [facility] Estimated GFR (MDRD) Amer 242 mL/min >60 [facility] Comment on above: GFR Calc Estimated GFR (MDRD) Non-Af Amer 200 mL/min >60 [facility] Comment on above: Non- GFR Calc Platelets bldOrdered By: Dr. Simpson on 11-21-2022 Platelets (Bld) [#/Vol] 270 10*3/uL 150-450 [facility] Serum or plasma albumin yesi urement (mass/volume)Ordered By: Dr. Simpson on 11-21-2022 Albumin [Mass/Vol] 3.4 g/dL 3.2-5.0 [facility] Serum or plasma albumin/glob ulin mass ratioOrdered By: Dr. Simpson on 11-21-2022 Albumin/Globulin [Mass ratio] 0.8 {ratio} 0.9-2.4 [facility] Serum or plasma calcium yesi urement (mass/volume)Ordered By: Dr. Simpson on 11-21-2022 Calcium [Mass/Vol] 9.2 mg/dL 8.5-10.1 [facility] Serum or plasma creatinine m easurement (mass/volume)Ordered By: Dr. Simpson on 11-21-2022 Creatinine [Mass/Vol] 0.46 mg/dL 0.70-1.30 [facility] Comment on above: The validity of the calculated GFR & GFRAA in patients over 70 years has not been determined. Clinical correlation is essential. Serum or plasma urea nitroge n measurement (mass/volume)Ordered By: Dr. Simpson on 11-21-2022 Urea nitrogen [Mass/Vol] 18 mg/dL 7-18 [facility] Thin prep Papanicolaou smear with manual screeningOrdered By: Dr. Simpson on 11-21-2022 Thin prep Papanicolaou smear with manual screening 17 U/L 15-37 [facility] Thin prep Papanicolaou smear with manual screening 5 5-15 [facility] Anaerobic cultureOrdered By: Joya Galvez on 11-17-2022 Bacteria identified Anaer cx Nom (Unsp spec) No anaerobic bacteria isolated. [facility] Bacteria identified Cx Nom ( Wound)Ordered By: Joya Galvez on 11-16-2022 Wound Culture Escherichia coli [facility] Wound Culture Pseudomonas aeroginosa [facility] Gram stain for investigation of transfusion reactionOrdered By: Joya Galvez on 11-14-2022 Microscopic observation Gram stain Nom (Unsp spec) [facility] Bacteria identified Anaer cx Nom (Unsp spec)Ordered By: Joya Galvez on 10-06-2022 Anaerobic Culture Anaerobic cocci [facility] Bacteria identified Cx Nom ( Wound)Ordered By: Joya Galvez on 10-05-2022 Wound Culture Meth. resistant Stap h. aureus [facility] Gram stain for investigation of transfusion reactionOrdered By: Joya Galvez on 10-03-2022 Microscopic observation Gram stain Nom (Unsp spec) [facility] TSHon 08-06-2022 TSH Qn 0.30 m[IU]/L Low 0.44 - 3.98 [facility] Comment on above: Result Comment: TSH testing is performed using different testing methodology at [facility] than at other [facility]. Direct result comparisons should only be made within the same method. Performed By: #### T SH2 #### [facility] [address] [place] [address] TSH - Thyroid Stimulating Ho Luis lemoson 08-06-2022 TSH Qn 0.30 m[IU]/L below low threshold See Below MG-Otolaryngol ogy-Admin [place] [address] Work Phone: Comment on above: Reference Range: 0.4 4 - 3.98 TSH testing is performed using different testing methodology at [facility] than at other [facility]. Direct result comparisons should only be made within the same method. Basophil percentageOrdered B y: Dr. Simpson on 07-24-2022 Basophil percentage < 0.9 mg/dL 0.70-1.30 [facility] No Panel InformationOrdered By: Dr. Simpson on 07-24-2022 Bedside Estimated GFR (eGFR) > 60.0000 mL/min >60 [facility] Bacteria identified Cx Nom ( Wound)Ordered By: Joya Galvez on 07-14-2022 Wound Culture Pseudomonas aeroginosa [facility] Wound Culture Streptococcus agalactiae (B) [facility] Bacteria identified Anaer cx Nom (Unsp spec)Ordered By: Joya Galvez on 07-13-2022 Anaerobic Culture Anaerobic cocci [facility] Gram stain for investigation of transfusion reactionOrdered By: Joya Galvez on 07-11-2022 Microscopic observation Gram stain Nom (Unsp spec) [facility] Established Visit (Otolaryng ology)on 06-18-2022 Established Visit (Otolaryngology) Diagnoses/Problems Xerostomia (527.7) (K11.7) Oropharyngeal dysphagia (787.22) (R13.12) Open wound of neck, subsequent encounter (V58.89,874.8) (S11.90XD) 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 MY JAMA, is here for cancer follow up. He has D3T8sB6 oral cavity SCCa s/p triple, trach, PEG, [...] has going to weekly wound clinic at [place]. They have been doing weekly debridements and then placed integra. There is a smell. He returns in 2 days. He is 4 months out from radiation now. 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 Patient completed adjuvant chemoradiation on 02/06/22. History: Dx1: [id number] left neck (unknown primary) 2018 Dx2: [id number] SCCa of the oral cavity 202004/28/18: +odynophagia, [...] no lymphadenopathy 09/12: Oral cavity biopsy at [facility] +SCCa 10/14: PET FDG avid oral cavity [...] Qn 4.66 m[IU]/L High 0.44 - 3.98 [facility] Comment on above: Result Comment: TSH testing is performed using different testing methodology at [facility] than at other [facility]. Direct result comparisons should only be made within the same method. Performed By: #### T SH2 #### [facility] [address] [address] TSH - Thyroid Stimulating Ho rmone, Serumon 06-18-2022 TSH Qn 4.66 m[IU]/L above high threshold See Below MG-Otolaryngol ogy-Admin [place] [address] Work Phone: Comment on above: Reference Range: 0.4 4 - 3.98 TSH testing is performed using different testing methodology at [facility] than at other [facility]. Direct result comparisons should only be made within the same method. Absolute lymphocyte counton 05-23-2022 Lymphocytes Auto (Unsp spec) [#/Vol] 1.03 10*3/uL 0.83-4.51 [facility] Work Phone: Basophil percentageOrdered B y: Dr. Simpson on 05-23-2022 Basophil percentage 3.9 mg/dL 2.5-4.9 [facility] Basophil percentageon 2021 Basophils/100 WBC (Bld) 0.4 % 0-1 [facility] Work Phone: Bilirubin [Mass/Vol] 0.20 mg/dL 0.20-1.00 [facility] Work Phone: Comment on above: For patients on eltr ombopag therapy, use of Dimension [place] TBIL is not recommended. Chloride [Moles/Vol] 99 mmol/L 98-107 [facility] Work Phone: Eosinophils/100 WBC (Bld) 0.4 % 0-5 [facility] Work Phone: Glucose [Mass/Vol] 105 mg/dL 74-106 [facility] Work Phone: Comment on above: Fasting Glucose resu lt from 100 to 125 mg/dL suggests IMPAIRED HOMEOSTASIS per A.D.A. criteria. Neutrophils (Bld) [#/Vol] 6.1 10*3/uL 2.0-7.7 [facility] Work Phone: Neutrophils/100 WBC (Bld) 76.7 % 47-70 [facility] Work Phone: Potassium [Moles/Vol] 4.1 mmol/L 3.5-5.1 [facility] Work Phone: Protein [Mass/Vol] 8.4 g/dL 6.4-8.2 [facility] Work Phone: Sodium [Moles/Vol] 135 mmol/L 136-145 [facility] Work Phone: WBC (Bld) [#/Vol] 7.9 10*3/uL 4.4-11.0 [facility] Work Phone: Blood erythrocytes count (nu mber/volume)on 05-23-2022 RBC (Bld) [#/Vol] 4.08 10*6/uL 4.6-6.2 [facility] Work Phone: Blood hemoglobin measurement (mass/volume)on 05-23-2022 Hemoglobin (Bld) [Mass/Vol] 11.0 g/dL 13.0-16.5 [facility] Work Phone: Blood lymphocytes/100 leukoc yteson 05-23-2022 Lymphocytes/100 WBC (Bld) 13.1 % 19-41 [facility] Work Phone: Blood monocytes/100 leukocyt eson 05-23-2022 Monocytes/100 WBC (Bld) 9.0 % 0-10 [facility] Work Phone: Blood platelet mean volumeon 05-23-2022 Platelet mean volume (Bld) [Entitic vol] 9.2 fL 6.2-12.0 [facility] Work Phone: Determination of erythrocyte mean corpuscular volume (MCV)on 05-23-2022 MCV (RBC) [Entitic vol] 86.8 fL 80-94 [facility] Work Phone: Hematocrit Auto (Bld) [Volum e fraction]on 05-23-2022 Hematocrit (Bld) [Volume fraction] 35.4 % 40-54 [facility] Work Phone: Laboratory - Chemistry and C hemistry - challengeon 05-23-2022 ALP [Catalytic activity/Vol] 109 U/L 45-117 [facility] Work Phone: ALT [Catalytic activity/Vol] 29 U/L 16-61 [facility] Work Phone: CO2 [Moles/Vol] 30.0 mmol/L 21.0-32.0 [facility] Work Phone: Globulin (S) [Mass/Vol] 4.9 g/dL 2.2-4.2 [facility] Work Phone: Urea nitrogen/Creatinine [Mass ratio] 31.7 mg/mg 10-20 [facility] Work Phone: Laboratory - Chemistry and C hemistry - challengeOrdered By: Dr. Simpson on 05-23-2022 Magnesium [Mass/Vol] 1.9 mg/dL 1.6-2.6 [facility] Laboratory - Hematology and Cell countson 05-23-2022 Erythrocyte distribution width (RBC) [Entitic vol] 51.3 fL 35.1-43.9 [facility] Work Phone: Erythrocyte distribution width (RBC) [Ratio] 16.1 % 11.6-14.6 [facility] Work Phone: Immature granulocytes/100 WBC (Bld) 0.400 % 0.0-0.9 [facility] Work Phone: Comment on above: IG% - Immature Granu locytes (promyelocytes, myelocytes and metamyelocytes) > 1% indicates that a LEFT SHIFT is Present. MCH (RBC) [Entitic mass] 27.0 pg 27.0-32.0 [facility] Work Phone: Nucleated RBC/100 WBC (Bld) [Ratio] 0 % 0-5 [facility] Work Phone: MCHC Auto (RBC) [Mass/Vol]on 05-23-2022 MCHC (RBC) [Mass/Vol] 31.1 g/dL 32-36 [facility] Work Phone: No Panel Informationon 05-23 Estimated Creatinine Clearance Calc 137.87 ml/min [facility] Work Phone: Estimated GFR (MDRD) Amer 233 mL/min >60 [facility] Work Phone: Comment on above: GFR Calc Estimated GFR (MDRD) Non-Af Amer 192 mL/min >60 [facility] Work Phone: Comment on above: Non- GFR Calc Platelets bldon 05-23-2022 Platelets (Bld) [#/Vol] 420 10*3/uL 150-450 [facility] Work Phone: Serum or plasma albumin yesi urement (mass/volume)on 05-23-2022 Albumin [Mass/Vol] 3.5 g/dL 3.2-5.0 [facility] Work Phone: Serum or plasma albumin/glob ulin mass ratioon 05-23-2022 Albumin/Globulin [Mass ratio] 0.7 {ratio} 0.9-2.4 [facility] Work Phone: Serum or plasma calcium yesi urement (mass/volume)on 05-23-2022 Calcium [Mass/Vol] 9.1 mg/dL 8.5-10.1 [facility] Work Phone: Serum or plasma creatinine m easurement (mass/volume)on 05-23-2022 Creatinine [Mass/Vol] 0.47 mg/dL 0.70-1.30 [facility] Work Phone: Comment on above: The validity of the calculated GFR & GFRAA in patients over 70 years has not been determined. Clinical correlation is essential. Serum or plasma urea nitroge n measurement (mass/volume)on 05-23-2022 Urea nitrogen [Mass/Vol] 15 mg/dL 7-18 [facility] Work Phone: Thin prep Papanicolaou smear with manual screeningon 05-23-2022 Thin prep Papanicolaou smear with manual screening 18 U/L 15-37 [facility] Work Phone: Thin prep Papanicolaou smear with manual screening 6 5-15 [facility] Work Phone: Established Visit (Otolaryng ology)on 05-14-2022 Established Visit (Otolaryngology) Diagnoses/Problems Former smoker (V15.82) (Z87.891) Adverse effect of radiation therapy, subsequent encounter (V58.89) (T66.XXXD) 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 Brooks evaluated you today. Your care plan is outlined below: -- You should have a PET scan now. have the med onc order it. -- Follow up with Dr. Brooks in 1 month. This appointment was scheduled at the end of your visit today. If you need to reschedule, please call the office at [phone]. Please keep in mind that last minute cancellations often result in delayed follow-up appointments. General appointment line please call [phone] For general questions or scheduling issues please call [phone] option #2 For medical questions or surgery scheduling please call [phone]. Please be sure to leave a voice [...] here for cancer follow up. He has T3X8tD4 oral cavity SCCa s/p triple, trach, PEG, [...] been referred to the wound clinic at [place]. He goes once a week and they deride the wound. He has his trach capped today. He is currently on Levaquin for 14 days. He has been seen by [employer] and is advancing his diet. He is [...] last script. 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 Patient completed adjuvant chemoradiation on 02/06/22. History: Dx1: [id number] left neck (unknown primary) 2018 Dx2: [id number] SCCa of the oral cavity 202004/28/18: +odynophagia, [...] no lymphadenopathy 09/12: Oral cavity biopsy at [facility] +SCCa 10/14: PET FDG avid oral cavity mass w/bone involvement SUV12, no lymphadenopathy or distant meta (more content not included)... Normal [employer] Tobacco Screening.on 022 Fall risk assessment a) No falls within the last year [facility]tol[facility]ol [employer] Work Phone: Tobacco use status [facility] b) No M P-Otolaryngol [facility] Work Phone: Tobacco Screening.on Fall risk assessment a) No falls within the last year [facility]tol[facility]ol [facility] Work Phone: Tobacco use status [facility] b) No M P-Otolaryngol [facility] Work Phone: Cult, Misc + smearon Bacteria identified Cx Nom (Unsp spec) Abnormal MG-Otolaryngol o[facility] Work Phone: Tobacco Screening.on Fall risk assessment a) No falls within the last year [facility] Work Phone: Tobacco use status [facility] b) No M G-Otolaryngol ogy-[place] Work Phone: Metabolic Panel, Basic (8004 8)Ordered By: Financial Processing Clerk on 02-22-2022 Calcium [Mass/Vol] 8.7 mg/dL Normal 8.7-10.2 [facility]; [facility] Work Phone: Comment on above: PATIENT NOT FASTINGP ERFORMED BY: [id number] [facility]Car[facility]Mont [facility] [id number] Chloride [Moles/Vol] 91 mmol/L Abnormal 96-106 Comp rehensive Internal Medicine; [facility] Work Phone: Comment on above: PATIENT NOT FASTINGP ERFORMED BY: [id number] [facility]oundFrank[facility] [id number] CO2 [Moles/Vol] 25 mmol/L Normal 20-[address] [facility]; [facility] Work Phone: Comment on above: PATIENT NOT FASTINGP ERFORMED BY: [id number] SwogoCaroMont [facility] [id number] Creatinine [Mass/Vol] 0.35 mg/dL Abnormal 0.76-1.27 [facility] prehensive Internal Medicine; [facility] Work Phone: Comment on above: PATIENT NOT FASTINGP ERFORMED BY: CB [facility] [id number] Dick RoadDublin [place] [id number] GFR/1.73 sq M.predicted among non-blacks MDRD (S/P/Bld) [Vol rate/Area] 131 mL/min/{1.73_m2} Normal Comprehensi Internal Medicine; [facility] Work Phone: Comment on above: PATIENT NOT FASTINGP ERFORMED BY: CB [facility] [id number] Dick RoadDublin [place] [id number] Glucose [Mass/Vol] 77 mg/dL Normal 65-99 [facility] Internal Medicine; [facility] Work Phone: Comment on above: PATIENT NOT FASTINGP ERFORMED BY: CB [facility] [id number] Dick RoadDublin [place] [id number] Potassium [Moles/Vol] 4.7 mmol/L Normal 3.5-5.2 [facility]; [facility] Work Phone: Comment on above: PATIENT NOT FASTINGP ERFORMED BY: CB [facility] [id number] Dick RoadDublin [place] [id number] Sodium [Moles/Vol] 130 mmol/L Abnormal 134-144 [facility] [place] Internal Medicine; [facility] Work Phone: Comment on above: PATIENT NOT FASTINGP ERFORMED BY: CB [facility] [id number] Dick RoadDublin [place] [id number] Urea nitrogen [Mass/Vol] 13 mg/dL Normal 6-24 [facility]; [facility] Work Phone: Comment on above: PATIENT NOT FASTINGP ERFORMED BY: CB [facility] [id number] Dick RoadDublin [place] [id number] Urea nitrogen/Creatinine [Mass ratio] 37 mg/mg Abnormal 9-20 [facility]; [facility] Work Phone: Comment on above: PATIENT NOT FASTINGP ERFORMED BY: CB [facility] [id number] Dick RoadDublin [place] [id number] Metabolic Panel, Basic (92776) 131 mL/min/1.73 Normal [facility]; [facility] Work Phone: Metabolic Panel, Basic (8004 8)Ordered By: Financial Processing Clerk on 02-15-2022 Calcium [Mass/Vol] 8.9 mg/dL Normal 8.7-10.2 [facility]; [facility] Work Phone: Comment on above: PATIENT NOT FASTINGP ERFORMED BY: CB [facility] [id number] Dick RoadDublin [place] [id number] Chloride [Moles/Vol] 92 mmol/L Abnormal 96-106 [facility]; [facility] Work Phone: Comment on above: PATIENT NOT FASTINGP ERFORMED BY: CB [facility] [id number] [address] RoadDublin [place] [id number] CO2 [Moles/Vol] 23 mmol/L Normal 20-[address] [facility] Internal [facility]; [facility] Work Phone: Comment on above: PATIENT NOT FASTINGP ERFORMED BY: CB [facility] [id number] Dick RoadDublin [place] [id number] Creatinine [Mass/Vol] 0.43 mg/dL Abnormal 0.76-1.27 [facility]; [facility] Work Phone: Comment on above: PATIENT NOT FASTINGP ERFORMED BY: CB [facility] [id number] [address] RoadDublin [place] [id number] GFR/1.73 sq M.predicted among non-blacks MDRD (S/P/Bld) [Vol rate/Area] 123 mL/min/{1.73_m2} Normal Comprehensi Internal Medicine; [facility] Work Phone: Comment on above: PATIENT NOT FASTINGP ERFORMED BY: CB [facility] [id number] Dick RoadDublin [place] [id number] Glucose [Mass/Vol] 87 mg/dL Normal 65-99 [facility] Internal Medicine; [facility] Work Phone: Comment on above: PATIENT NOT FASTINGP ERFORMED BY: CB [facility] [id number] Dick RoadDublin [place] [id number] Potassium [Moles/Vol] 5.2 mmol/L Normal 3.5-5.2 [facility] prehensive Internal Medicine; [facility] Work Phone: Comment on above: PATIENT NOT FASTINGP ERFORMED BY: SAGRARIO [facility] [id number] Dick BrazzleboxCone Health Alam[facility] Regional [id number] Sodium [Moles/Vol] 131 mmol/L Abnormal 134-144 [facility] Internal Medicine; [facility] Work Phone: Comment on above: PATIENT NOT FASTINGP ERFORMED BY: SAGRARIO LabcoCare [facility] at [facility] Medical CenterQzaleg7311 [facility] [id number] Urea nitrogen [Mass/Vol] 15 mg/dL Normal 6-24 [facility]; [facility] Work Phone: Comment on above: PATIENT NOT FASTINGP ERFORMED BY: SAGRARIO [facility] [id number] Dick BrazzleboxCone Health Al[facility] Regional [id number] Urea nitrogen/Creatinine [Mass ratio] 35 mg/mg Abnormal 9-20 [facility]; [facility] Work Phone: Comment on above: PATIENT NOT FASTINGP ERFORMED BY: LabcoCare [facility] Medical CenterIpalse8336 [facility] [id number] Metabolic Panel, Basic (63994) 123 mL/min/1.73 Normal [facility]; [facility] Work Phone: Absolute lymphocyte counton 02-14-2022 Lymphocytes Auto (Unsp spec) [#/Vol] 0.86 10*3/uL 0.83-4.51 [facility] Basophil percentageon 2021 Basophil percentage 3.4 mg/dL 2.5-4.[address] [facility] er [facility] Basophils/100 WBC (Bld) 0.3 % 0-1 [facility] Bilirubin [Mass/Vol] 0.20 mg/dL 0.20-1.00 [facility] Comment on above: For patients on eltr ombopag therapy, use of Dimension [place] TBIL is not recommended. Chloride [Moles/Vol] 93 mmol/L 98-107 [facility] Eosinophils/100 WBC (Bld) 0.7 % 0-5 [facility] Glucose [Mass/Vol] 82 mg/dL 74-106 [facility] Neutrophils (Bld) [#/Vol] 4.3 10*3/uL 2.0-7.7 [facility] Neutrophils/100 WBC (Bld) 71.4 % 47-70 [facility] Potassium [Moles/Vol] 4.2 mmol/L 3.5-5.1 [facility] Protein [Mass/Vol] 8.1 g/dL 6.4-8.2 [facility] Sodium [Moles/Vol] 129 mmol/L 136-145 [facility] WBC (Bld) [#/Vol] 6.1 10*3/uL 4.4-11.0 [facility] Blood erythrocytes count (nu mber/volume)on 02-14-2022 RBC (Bld) [#/Vol] 3.44 10*6/uL 4.6-6.2 [facility] Blood hemoglobin measurement (mass/volume)on 02-14-2022 Hemoglobin (Bld) [Mass/Vol] 10.6 g/dL 13.0-16.5 [facility] Blood lymphocytes/100 leukoc yteson 02-14-2022 Lymphocytes/100 WBC (Bld) 14.2 % 19-41 [facility] Blood monocytes/100 leukocyt eson 02-14-2022 Monocytes/100 WBC (Bld) 12.7 % 0-10 [facility] Blood platelet mean volumeon 02-14-2022 Platelet mean volume (Bld) [Entitic vol] 8.1 fL 6.2-12.0 [facility] Determination of erythrocyte mean corpuscular volume (MCV)on 02-14-2022 MCV (RBC) [Entitic vol] 91.6 fL 80-94 [facility] Hematocrit Auto (Bld) [Volum e fraction]on 02-14-2022 Hematocrit (Bld) [Volume fraction] 31.5 % 40-54 [facility] Laboratory - Chemistry and C hemistry - challengeon 02-14-2022 ALP [Catalytic activity/Vol] 97 U/L 45-117 [facility] ALT [Catalytic activity/Vol] 26 U/L 16-61 [facility] CO2 [Moles/Vol] 31.0 mmol/L 21.0-32.0 [facility] Globulin (S) [Mass/Vol] 4.7 g/dL 2.2-4.2 [facility] Magnesium [Mass/Vol] 1.9 mg/dL 1.6-2.6 [facility] Urea nitrogen/Creatinine [Mass ratio] 52.9 mg/mg 10-20 [facility] Laboratory - Hematology and Cell countson 02-14-2022 Erythrocyte distribution width (RBC) [Entitic vol] 49.9 fL 35.1-43.9 [facility] Erythrocyte distribution width (RBC) [Ratio] 14.9 % 11.6-14.6 [facility] Immature granulocytes/100 WBC (Bld) 0.700 % 0.0-0.9 [facility] Comment on above: IG% - Immature Granu locytes (promyelocytes, myelocytes and metamyelocytes) > 1% indicates that a LEFT SHIFT is Present. MCH (RBC) [Entitic mass] 30.8 pg 27.0-32.0 [facility] Nucleated RBC/100 WBC (Bld) [Ratio] 0 % 0-5 [facility] MCHC Auto (RBC) [Mass/Vol]on 02-14-2022 MCHC (RBC) [Mass/Vol] 33.7 g/dL 32-36 [facility] No Panel Informationon 02-14 Estimated GFR (MDRD) Amer 302 mL/min >60 [facility] Comment on above: GFR Calc Estimated GFR (MDRD) Non-Af Amer 249 mL/min >60 [facility] Comment on above: Non- GFR Calc Platelets bldon 02-14-2022 Platelets (Bld) [#/Vol] 464 10*3/uL 150-450 [facility] Serum or plasma albumin yesi urement (mass/volume)on 02-14-2022 Albumin [Mass/Vol] 3.4 g/dL 3.2-5.0 [facility] Serum or plasma albumin/glob ulin mass ratioon 02-14-2022 Albumin/Globulin [Mass ratio] 0.7 {ratio} 0.9-2.4 [facility] Serum or plasma calcium yesi urement (mass/volume)on 02-14-2022 Calcium [Mass/Vol] 9.0 mg/dL 8.5-10.1 [facility] Serum or plasma creatinine m easurement (mass/volume)on 02-14-2022 Creatinine [Mass/Vol] 0.38 mg/dL 0.70-1.30 [facility] Comment on above: The validity of the calculated GFR & GFRAA in patients over 70 years has not been determined. Clinical correlation is essential. Serum or plasma urea nitroge n measurement (mass/volume)on 02-14-2022 Urea nitrogen [Mass/Vol] 20 mg/dL 7-18 [facility] Thin prep Papanicolaou smear with manual screeningon 02-14-2022 Thin prep Papanicolaou smear with manual screening 12 U/L 15-37 [facility] Thin prep Papanicolaou smear with manual screening 5 5-15 [facility] Tobacco Screening.on 022 Fall risk assessment a) No falls within the last year [facility]Otol[facility] Work Phone: Tobacco use status [facility] b) No M P-Otolaryngol [facility] Work Phone: Absolute lymphocyte counton 01-31-2022 Lymphocytes Auto (Unsp spec) [#/Vol] 0.66 10*3/uL 0.83-4.51 [facility] Work Phone: Basophil percentageon 2021 Basophil percentage 3.9 mg/dL 2.5-4.9 [facility] Work Phone: Basophils/100 WBC (Bld) 0.2 % 0-1 [facility] Work Phone: Chloride [Moles/Vol] 96 mmol/L 98-107 [facility] Work Phone: Eosinophils/100 WBC (Bld) 0.7 % 0-5 [facility] Work Phone: Glucose [Mass/Vol] 78 mg/dL 74-106 [facility] Work Phone: Neutrophils (Bld) [#/Vol] 4.5 10*3/uL 2.0-7.7 [facility] Work Phone: Neutrophils/100 WBC (Bld) 75.6 % 47-70 [facility] Work Phone: Potassium [Moles/Vol] 3.8 mmol/L 3.5-5.1 [facility] Work Phone: Sodium [Moles/Vol] 132 mmol/L 136-145 [facility] Work Phone: WBC (Bld) [#/Vol] 5.9 10*3/uL 4.4-11.0 [facility] Work Phone: Blood erythrocytes count (nu mber/volume)on 01-31-2022 RBC (Bld) [#/Vol] 3.13 10*6/uL 4.6-6.2 [facility] Work Phone: Blood hemoglobin measurement (mass/volume)on 01-31-2022 Hemoglobin (Bld) [Mass/Vol] 9.7 g/dL 13.0-16.5 [facility] Work Phone: Blood lymphocytes/100 leukoc yteson 01-31-2022 Lymphocytes/100 WBC (Bld) 11.2 % 19-41 [facility] Work Phone: Blood monocytes/100 leukocyt eson 01-31-2022 Monocytes/100 WBC (Bld) 12.1 % 0-10 [facility] Work Phone: Blood platelet mean volumeon 01-31-2022 Platelet mean volume (Bld) [Entitic vol] 8.1 fL 6.2-12.0 [facility] Work Phone: Determination of erythrocyte mean corpuscular volume (MCV)on 01-31-2022 MCV (RBC) [Entitic vol] 93.9 fL 80-94 [facility] Work Phone: Hematocrit Auto (Bld) [Volum e fraction]on 01-31-2022 Hematocrit (Bld) [Volume fraction] 29.4 % 40-54 [facility] Work Phone: Laboratory - Chemistry and C hemistry - challengeon 01-31-2022 CO2 [Moles/Vol] 31.0 mmol/L 21.0-32.0 [facility] Work Phone: Magnesium [Mass/Vol] 1.6 mg/dL 1.6-2.6 [facility] Work Phone: Urea nitrogen/Creatinine [Mass ratio] 43.5 mg/mg 10-20 [facility] Work Phone: Laboratory - Hematology and Cell countson 01-31-2022 Erythrocyte distribution width (RBC) [Entitic vol] 53.1 fL 35.1-43.9 [facility] Work Phone: Erythrocyte distribution width (RBC) [Ratio] 15.3 % 11.6-14.6 [facility] Work Phone: Immature granulocytes/100 WBC (Bld) 0.200 % 0.0-0.9 [facility] Work Phone: Comment on above: IG% - Immature Granu locytes (promyelocytes, myelocytes and metamyelocytes) > 1% indicates that a LEFT SHIFT is Present. MCH (RBC) [Entitic mass] 31.0 pg 27.0-32.0 [facility] Work Phone: Nucleated RBC/100 WBC (Bld) [Ratio] 0 % 0-5 [facility] Work Phone: MCHC Auto (RBC) [Mass/Vol]on 01-31-2022 MCHC (RBC) [Mass/Vol] 33.0 g/dL 32-36 [facility] Work Phone: No Panel Informationon 01-31 Estimated Creatinine Clearance Calc 194.55 ml/min [facility] Work Phone: Estimated GFR (MDRD) Amer 363 mL/min >60 [facility] Work Phone: Comment on above: GFR Calc Estimated GFR (MDRD) Non-Af Amer 300 mL/min >60 [facility] Work Phone: Comment on above: Non- GFR Calc Platelets bldon 01-31-2022 Platelets (Bld) [#/Vol] 303 10*3/uL 150-450 [facility] Work Phone: Serum or plasma calcium yesi urement (mass/volume)on 01-31-2022 Calcium [Mass/Vol] 9.0 mg/dL 8.5-10.1 [facility] Work Phone: Serum or plasma creatinine m easurement (mass/volume)on 01-31-2022 Creatinine [Mass/Vol] 0.32 mg/dL 0.70-1.30 [facility] Work Phone: Comment on above: The validity of the calculated GFR & GFRAA in patients over 70 years has not been determined. Clinical correlation is essential. Serum or plasma urea nitroge n measurement (mass/volume)on 01-31-2022 Urea nitrogen [Mass/Vol] 14 mg/dL 7-18 [facility] Work Phone: Thin prep Papanicolaou smear with manual screeningon 01-31-2022 Thin prep Papanicolaou smear with manual screening 5 5-15 [facility] Work Phone: Absolute lymphocyte counton 01-25-2022 Lymphocytes Auto (Unsp spec) [#/Vol] 0.60 10*3/uL 0.83-4.51 [facility] Work Phone: Basophil percentageon 2021 Basophils/100 WBC (Bld) 0.2 % 0-1 [facility] Work Phone: Chloride [Moles/Vol] 96 mmol/L 98-107 [facility] Work Phone: Eosinophils/100 WBC (Bld) 0.2 % 0-5 [facility] Work Phone: Glucose [Mass/Vol] 109 mg/dL 74-106 [facility] Work Phone: Comment on above: Fasting Glucose resu lt from 100 to 125 mg/dL suggests IMPAIRED HOMEOSTASIS per A.D.A. criteria. Neutrophils (Bld) [#/Vol] 4.4 10*3/uL 2.0-7.7 [facility] Work Phone: Neutrophils/100 WBC (Bld) 74.7 % 47-70 [facility] Work Phone: Potassium [Moles/Vol] 4.3 mmol/L 3.5-5.1 [facility] Work Phone: Sodium [Moles/Vol] 129 mmol/L 136-145 [facility] Work Phone: WBC (Bld) [#/Vol] 5.8 10*3/uL 4.4-11.0 [facility] Work Phone: Blood erythrocytes count (nu mber/volume)on 01-25-2022 RBC (Bld) [#/Vol] 3.25 10*6/uL 4.6-6.2 [facility] Work Phone: Blood hemoglobin measurement (mass/volume)on 01-25-2022 Hemoglobin (Bld) [Mass/Vol] 10.2 g/dL 13.0-16.5 [facility] Work Phone: Blood lymphocytes/100 leukoc yteson 01-25-2022 Lymphocytes/100 WBC (Bld) 10.3 % 19-41 [facility] Work Phone: Blood monocytes/100 leukocyt eson 01-25-2022 Monocytes/100 WBC (Bld) 13.9 % 0-10 [facility] Work Phone: Blood platelet mean volumeon 01-25-2022 Platelet mean volume (Bld) [Entitic vol] 7.9 fL 6.2-12.0 [facility] Work Phone: Determination of erythrocyte mean corpuscular volume (MCV)on 01-25-2022 MCV (RBC) [Entitic vol] 90.2 fL 80-94 [facility] Work Phone: Hematocrit Auto (Bld) [Volum e fraction]on 05-05-2022 Hematocrit (Bld) [Volume fraction] 29.3 % 40-54 [facility] Work Phone: Laboratory - Chemistry and C hemistry - challengeon 01-25-2022 CO2 [Moles/Vol] 28.0 mmol/L 21.0-32.0 [facility] Work Phone: Urea nitrogen/Creatinine [Mass ratio] 43.4 mg/mg 10-20 [facility] Work Phone: Laboratory - Hematology and Cell countson 01-25-2022 Erythrocyte distribution width (RBC) [Entitic vol] 51.0 fL 35.1-43.9 [facility] Work Phone: Erythrocyte distribution width (RBC) [Ratio] 15.5 % 11.6-14.6 [facility] Work Phone: Immature granulocytes/100 WBC (Bld) 0.700 % 0.0-0.9 [facility] Work Phone: Comment on above: IG% - Immature Granu locytes (promyelocytes, myelocytes and metamyelocytes) > 1% indicates that a LEFT SHIFT is Present. MCH (RBC) [Entitic mass] 31.4 pg 27.0-32.0 [facility] Work Phone: Nucleated RBC/100 WBC (Bld) [Ratio] 0 % 0-5 [facility] Work Phone: MCHC Auto (RBC) [Mass/Vol]on 01-25-2022 MCHC (RBC) [Mass/Vol] 34.8 g/dL 32-36 [facility] Work Phone: No Panel Informationon 01-25 Estimated Creatinine Clearance Calc 172.09 ml/min [facility] Work Phone: Estimated GFR (MDRD) Amer 310 mL/min >60 [facility] Work Phone: Comment on above: GFR Calc Estimated GFR (MDRD) Non-Af Amer 256 mL/min >60 [facility] Work Phone: Comment on above: Non- GFR Calc Platelets bldon 01-25-2022 Platelets (Bld) [#/Vol] 298 10*3/uL 150-450 [facility] Work Phone: Serum or plasma calcium yesi urement (mass/volume)on 01-25-2022 Calcium [Mass/Vol] 8.5 mg/dL 8.5-10.1 [facility] Work Phone: Serum or plasma creatinine m easurement (mass/volume)on 01-25-2022 Creatinine [Mass/Vol] 0.37 mg/dL 0.70-1.30 [facility] Work Phone: Comment on above: The validity of the calculated GFR & GFRAA in patients over 70 years has not been determined. Clinical correlation is essential. Serum or plasma urea nitroge n measurement (mass/volume)on 01-25-2022 Urea nitrogen [Mass/Vol] 16 mg/dL 7-18 [facility] Work Phone: Thin prep Papanicolaou smear with manual screeningon 01-25-2022 Thin prep Papanicolaou smear with manual screening 5 5-15 [facility] Work Phone: Absolute lymphocyte counton 01-23-2022 Lymphocytes Auto (Unsp spec) [#/Vol] 0.28 10*3/uL 0.83-4.51 [facility] Work Phone: Basophil percentageon 2021 Chloride [Moles/Vol] 91 mmol/L 98-107 [facility] Work Phone: Glucose [Mass/Vol] 100 mg/dL 74-106 [facility] Work Phone: Comment on above: Fasting Glucose resu lt from 100 to 125 mg/dL suggests IMPAIRED HOMEOSTASIS per A.D.A. criteria. Potassium [Moles/Vol] 4.0 mmol/L 3.5-5.1 [facility] Work Phone: Sodium [Moles/Vol] 123 mmol/L 136-145 [facility] Work Phone: Basophils/100 WBC (Bld) 0.0 % 0-1 [facility] Work Phone: Eosinophils/100 WBC (Bld) 0.0 % 0-5 [facility] Work Phone: Neutrophils (Bld) [#/Vol] 7.7 10*3/uL 2.0-7.7 [facility] Work Phone: Neutrophils/100 WBC (Bld) 94.5 % 47-70 [facility] Work Phone: WBC (Bld) [#/Vol] 8.2 10*3/uL 4.4-11.0 [facility] Work Phone: Blood erythrocytes count (nu mber/volume)on 01-23-2022 RBC (Bld) [#/Vol] 3.18 10*6/uL 4.6-6.2 [facility] Work Phone: Blood hemoglobin measurement (mass/volume)on 01-23-2022 Hemoglobin (Bld) [Mass/Vol] 9.8 g/dL 13.0-16.5 [facility] Work Phone: Blood lymphocytes/100 leukoc yteson 01-23-2022 Lymphocytes/100 WBC (Bld) 3.4 % 19-41 [facility] Work Phone: Blood manual differential co mment interpretation (narrative result)on 01-23-2022 Manual differential comment Allen (Bld) [Interp] SCANNED [facility] Work Phone: Comment on above: LYMPHOPENIA NOTED Blood monocytes/100 leukocyt eson 01-23-2022 Monocytes/100 WBC (Bld) 1.6 % 0-10 [facility] Work Phone: Blood platelet mean volumeon 01-23-2022 Platelet mean volume (Bld) [Entitic vol] 8.9 fL 6.2-12.0 [facility] Work Phone: Determination of erythrocyte mean corpuscular volume (MCV)on 01-23-2022 MCV (RBC) [Entitic vol] 87.4 fL 80-94 [facility] Work Phone: Hematocrit Auto (Bld) [Volum e fraction]on 01-23-2022 Hematocrit (Bld) [Volume fraction] 27.8 % 40-54 [facility] Work Phone: Laboratory - Chemistry and C hemistry - challengeon 01-23-2022 CO2 [Moles/Vol] 25.0 mmol/L 21.0-32.0 [facility] Work Phone: Urea nitrogen/Creatinine [Mass ratio] 23.1 mg/mg 10-20 [facility] Work Phone: Sodium (U) [Moles/Vol] 42 mmol/L Not Establ. [facility] Work Phone: Laboratory - Hematology and Cell countson 01-23-2022 Erythrocyte distribution width (RBC) [Entitic vol] 46.2 fL 35.1-43.9 [facility] Work Phone: Erythrocyte distribution width (RBC) [Ratio] 14.3 % 11.6-14.6 [facility] Work Phone: Immature granulocytes/100 WBC (Bld) 0.500 % 0.0-0.9 [facility] Work Phone: Comment on above: IG% - Immature Granu locytes (promyelocytes, myelocytes and metamyelocytes) > 1% indicates that a LEFT SHIFT is Present. MCH (RBC) [Entitic mass] 30.8 pg 27.0-32.0 [facility] Work Phone: Nucleated RBC/100 WBC (Bld) [Ratio] 0 % 0-5 [facility] Work Phone: Laboratory - Microbiology an d Antimicrobial susceptibilityon 01-23-2022 SARS-CoV-2 (COVID-19) RNA PEDRO+probe Ql (Unsp spec) Not detected Not Detect [facility] Work Phone: Comment on above: Normal Reference Ran ge: Not DetectedMethod:(RT-PCR) real-time reverse transcriptase PCRLuKO-SU Instrument*The Food and Drug Administration (FDA) has issued an Emergency Use Authorization (EAU) for the [employer] SARS-CoV-2 Assay for the rapid detection of [...] 01-23-2022 MCHC (RBC) [Mass/Vol] 35.3 g/dL 32-36 [facility] Work Phone: No Panel Informationon 01-23 Estimated Creatinine Clearance Calc 163.56 ml/min [facility] Work Phone: Estimated GFR (MDRD) Amer 291 mL/min >60 [facility] Work Phone: Comment on above: GFR Calc Estimated GFR (MDRD) Non-Af Amer 241 mL/min >60 [facility] Work Phone: Comment on above: Non- GFR Calc Platelets bldon 01-23-2022 Platelets (Bld) [#/Vol] 315 10*3/uL 150-450 [facility] Work Phone: Serum or plasma calcium yesi urement (mass/volume)on 01-23-2022 Calcium [Mass/Vol] 9.0 mg/dL 8.5-10.1 [facility] Work Phone: Serum or plasma creatinine m easurement (mass/volume)on 01-23-2022 Creatinine [Mass/Vol] 0.39 mg/dL 0.70-1.30 [facility] Work Phone: Comment on above: The validity of the calculated GFR & GFRAA in patients over 70 years has not been determined. Clinical correlation is essential. Serum or plasma urea nitroge n measurement (mass/volume)on 01-23-2022 Urea nitrogen [Mass/Vol] 9 mg/dL 7-18 [facility] Work Phone: Thin prep Papanicolaou smear with manual screeningon 01-23-2022 Thin prep Papanicolaou smear with manual screening 7 5-15 [facility] Work Phone: Urine osmolality measurement on 01-23-2022 Osmolality (U) [Osmolality] 229 mOsm/KG >50 [facility] Work Phone: Comment on above: Normal Urine Referen ce Ranges Random: 50 - 1200 mOsm/kg H20 depending on fluid intake Random: >850 mOsm/kg after 12 hour fluid restriction 24 hour: ~300 - 900 mOsm/kg H2O No Panel Informationon 01-22 Thyroid Stimulating Hormone (TSH) 2.09 uIU/mL 0.358-3.74 [facility] Work Phone: Serum or plasma cortisol davey surement (mass/volume)on 01-22-2022 Cortisol [Mass/Vol] 47.00 ug/dL 3.44-22.45 [facility] Work Phone: Comment on above: Adult (AM) 5.27 - 22 .45 ug/dL Adult (PM) 3.44 - 16.76 ug/dLPlease note revised CORTISOL reference range effective 2019. Thin prep Papanicolaou smear with manual screeningon 01-22-2022 Thin prep Papanicolaou smear with manual screening 238 mOsm/KG 275-295 [facility] Work Phone: Absolute lymphocyte counton 01-17-2022 Lymphocytes Auto (Unsp spec) [#/Vol] 0.68 10*3/uL 0.83-4.51 [facility] Work Phone: Basophil percentageon 2021 Basophil percentage 3.5 mg/dL 2.5-4.9 [facility] Work Phone: Basophils/100 WBC (Bld) 0.5 % 0-1 [facility] Work Phone: Chloride [Moles/Vol] 93 mmol/L 98-107 [facility] Work Phone: Eosinophils/100 WBC (Bld) 0.8 % 0-5 [facility] Work Phone: Glucose [Mass/Vol] 83 mg/dL 74-106 [facility] Work Phone: Neutrophils (Bld) [#/Vol] 4.6 10*3/uL 2.0-7.7 [facility] Work Phone: Neutrophils/100 WBC (Bld) 73.7 % 47-70 [facility] Work Phone: Potassium [Moles/Vol] 3.7 mmol/L 3.5-5.1 [facility] Work Phone: Sodium [Moles/Vol] 130 mmol/L 136-145 [facility] Work Phone: WBC (Bld) [#/Vol] 6.3 10*3/uL 4.4-11.0 [facility] Work Phone: Blood erythrocytes count (nu mber/volume)on 01-17-2022 RBC (Bld) [#/Vol] 3.31 10*6/uL 4.6-6.2 [facility] Work Phone: Blood hemoglobin measurement (mass/volume)on 01-17-2022 Hemoglobin (Bld) [Mass/Vol] 10.3 g/dL 13.0-16.5 [facility] Work Phone: Blood lymphocytes/100 leukoc yteson 01-17-2022 Lymphocytes/100 WBC (Bld) 10.8 % 19-41 [facility] Work Phone: Blood monocytes/100 leukocyt eson 01-17-2022 Monocytes/100 WBC (Bld) 13.6 % 0-10 [facility] Work Phone: Blood platelet mean volumeon 01-17-2022 Platelet mean volume (Bld) [Entitic vol] 8.6 fL 6.2-12.0 [facility] Work Phone: Determination of erythrocyte mean corpuscular volume (MCV)on 01-17-2022 MCV (RBC) [Entitic vol] 91.5 fL 80-94 [facility] Work Phone: Hematocrit Auto (Bld) [Volum e fraction]on 01-17-2022 Hematocrit (Bld) [Volume fraction] 30.3 % 40-54 [facility] Work Phone: Laboratory - Chemistry and C hemistry - challengeon 01-17-2022 CO2 [Moles/Vol] 29.0 mmol/L 21.0-32.0 [facility] Work Phone: Magnesium [Mass/Vol] 1.7 mg/dL 1.6-2.6 [facility] Work Phone: Urea nitrogen/Creatinine [Mass ratio] 21.0 mg/mg 10-20 [facility] Work Phone: Laboratory - Hematology and Cell countson 01-17-2022 Erythrocyte distribution width (RBC) [Entitic vol] 49.4 fL 35.1-43.9 [facility] Work Phone: Erythrocyte distribution width (RBC) [Ratio] 14.8 % 11.6-14.6 [facility] Work Phone: Immature granulocytes/100 WBC (Bld) 0.600 % 0.0-0.9 [facility] Work Phone: Comment on above: IG% - Immature Granu locytes (promyelocytes, myelocytes and metamyelocytes) > 1% indicates that a LEFT SHIFT is Present. MCH (RBC) [Entitic mass] 31.1 pg 27.0-32.0 [facility] Work Phone: Nucleated RBC/100 WBC (Bld) [Ratio] 0 % 0-5 [facility] Work Phone: MCHC Auto (RBC) [Mass/Vol]on 01-17-2022 MCHC (RBC) [Mass/Vol] 34.0 g/dL 32-36 [facility] Work Phone: No Panel Informationon 01-17 Estimated Creatinine Clearance Calc 193.58 ml/min [facility] Work Phone: Estimated GFR (MDRD) Amer 348 mL/min >60 [facility] Work Phone: Comment on above: GFR Calc Estimated GFR (MDRD) Non-Af Amer 288 mL/min >60 [facility] Work Phone: Comment on above: Non- GFR Calc Platelets bldon 01-17-2022 Platelets (Bld) [#/Vol] 350 10*3/uL 150-450 [facility] Work Phone: Serum or plasma calcium yesi urement (mass/volume)on 01-17-2022 Calcium [Mass/Vol] 9.1 mg/dL 8.5-10.1 [facility] Work Phone: Serum or plasma creatinine m easurement (mass/volume)on 01-17-2022 Creatinine [Mass/Vol] 0.33 mg/dL 0.70-1.30 [facility] Work Phone: Comment on above: The validity of the calculated GFR & GFRAA in patients over 70 years has not been determined. Clinical correlation is essential. Serum or plasma urea nitroge n measurement (mass/volume)on 01-17-2022 Urea nitrogen [Mass/Vol] 7 mg/dL 7-18 [facility] Work Phone: Thin prep Papanicolaou smear with manual screeningon 01-17-2022 Thin prep Papanicolaou smear with manual screening 8 5-15 [facility] Work Phone: Tobacco Screening.on 022 Fall risk assessment a) No falls within the last year [facility] Work Phone: Tobacco use status CPHS a) Yes [facility] Work Phone: Tobacco Screening. Yes [facility] [facility] Work Phone: Absolute lymphocyte counton 01-10-2022 Lymphocytes Auto (Unsp spec) [#/Vol] 0.73 10*3/uL 0.83-4.51 [facility] Work Phone: Basophil percentageon 2021 Basophil percentage 3.9 mg/dL 2.5-4.9 [facility] Work Phone: Basophils/100 WBC (Bld) 0.2 % 0-1 [facility] Work Phone: Chloride [Moles/Vol] 94 mmol/L 98-107 [facility]: Eosinophils/100 WBC (Bld) 0.7 % 0-5 [facility] Work Phone: Glucose [Mass/Vol] 90 mg/dL 74-106 [facility] Work Phone: Neutrophils (Bld) [#/Vol] 4.4 10*3/uL 2.0-7.7 [facility] Work Phone: Neutrophils/100 WBC (Bld) 72.5 % 47-70 [facility] Work Phone: Potassium [Moles/Vol] 3.8 mmol/L 3.5-5.1 [facility] Work Phone: Sodium [Moles/Vol] 131 mmol/L 136-145 [facility] Work Phone: WBC (Bld) [#/Vol] 6.0 10*3/uL 4.4-11.0 [facility] Work Phone: Blood erythrocytes count (nu mber/volume)on 01-10-2022 RBC (Bld) [#/Vol] 3.34 10*6/uL 4.6-6.2 [facility] Work Phone: Blood hemoglobin measurement (mass/volume)on 01-10-2022 Hemoglobin (Bld) [Mass/Vol] 10.4 g/dL 13.0-16.5 [facility] Work Phone: Blood lymphocytes/100 leukoc yteson 01-10-2022 Lymphocytes/100 WBC (Bld) 12.2 % 19-41 [facility] Work Phone: Blood monocytes/100 leukocyt eson 01-10-2022 Monocytes/100 WBC (Bld) 13.4 % 0-10 [facility] Work Phone: Blood platelet mean volumeon 01-10-2022 Platelet mean volume (Bld) [Entitic vol] 8.0 fL 6.2-12.0 [facility] Work Phone: Determination of erythrocyte mean corpuscular volume (MCV)on 01-10-2022 MCV (RBC) [Entitic vol] 92.2 fL 80-94 [facility] Work Phone: Hematocrit Auto (Bld) [Volum e fraction]on 01-10-2022 Hematocrit (Bld) [Volume fraction] 30.8 % 40-54 [facility] Work Phone: Laboratory - Chemistry and C hemistry - challengeon 01-10-2022 CO2 [Moles/Vol] 29.0 mmol/L 21.0-32.0 [facility] Work Phone: Magnesium [Mass/Vol] 1.9 mg/dL 1.6-2.6 [facility] Work Phone: Urea nitrogen/Creatinine [Mass ratio] 25.3 mg/mg 10-20 [facility] Work Phone: Laboratory - Hematology and Cell countson 01-10-2022 Erythrocyte distribution width (RBC) [Entitic vol] 48.8 fL 35.1-43.9 [facility] Work Phone: Erythrocyte distribution width (RBC) [Ratio] 14.6 % 11.6-14.6 [facility] Work Phone: Immature granulocytes/100 WBC (Bld) 1.000 % 0.0-0.9 [facility] Work Phone: Comment on above: IG% - Immature Granu locytes (promyelocytes, myelocytes and metamyelocytes) > 1% indicates that a LEFT SHIFT is Present. MCH (RBC) [Entitic mass] 31.1 pg 27.0-32.0 [facility] Work Phone: Nucleated RBC/100 WBC (Bld) [Ratio] 0 % 0-5 [facility] Work Phone: MCHC Auto (RBC) [Mass/Vol]on 01-10-2022 MCHC (RBC) [Mass/Vol] 33.8 g/dL 32-36 [facility] Work Phone: No Panel Informationon 01-10 Estimated Creatinine Clearance Calc 162.02 ml/min [facility] Work Phone: Estimated GFR (MDRD) Amer 286 mL/min >60 [facility] Work Phone: Comment on above: GFR Calc Estimated GFR (MDRD) Non-Af Amer 236 mL/min >60 [facility] Work Phone: Comment on above: Non- GFR Calc Platelets bldon 01-10-2022 Platelets (Bld) [#/Vol] 377 10*3/uL 150-450 [facility] Work Phone: Serum or plasma calcium yesi urement (mass/volume)on 01-10-2022 Calcium [Mass/Vol] 8.5 mg/dL 8.5-10.1 [facility] Work Phone: Serum or plasma creatinine m easurement (mass/volume)on 01-10-2022 Creatinine [Mass/Vol] 0.40 mg/dL 0.70-1.30 [facility] Work Phone: Comment on above: The validity of the calculated GFR & GFRAA in patients over 70 years has not been determined. Clinical correlation is essential. Serum or plasma urea nitroge n measurement (mass/volume)on 01-10-2022 Urea nitrogen [Mass/Vol] 10 mg/dL 7-18 [facility] Work Phone: Thin prep Papanicolaou smear with manual screeningon 01-10-2022 Thin prep Papanicolaou smear with manual screening 8 5-15 [facility] Work Phone: Tobacco Screening.on 022 Fall risk assessment a) No falls within the last year [facility] Work Phone: Tobacco use status CPHS b) No [facility] Work Phone: Absolute lymphocyte counton 12-18-2021 Lymphocytes Auto (Unsp spec) [#/Vol] 1.35 10*3/uL 0.83-4.51 [facility] Work Phone: Basophil percentageon 2021 Basophils/100 WBC (Bld) 0.3 % 0-1 [facility] Work Phone: Bilirubin [Mass/Vol] 0.30 mg/dL 0.20-1.00 [facility] Work Phone: Comment on above: For patients on eltr ombopag therapy, use of Dimension [place] TBIL is not recommended. Chloride [Moles/Vol] 94 mmol/L 98-107 [facility] Work Phone: Eosinophils/100 WBC (Bld) 0.6 % 0-5 [facility] Work Phone: Glucose [Mass/Vol] 106 mg/dL 74-106 [facility] Work Phone: Comment on above: Fasting Glucose resu lt from 100 to 125 mg/dL suggests IMPAIRED HOMEOSTASIS per A.D.A. criteria. Neutrophils (Bld) [#/Vol] 6.3 10*3/uL 2.0-7.7 [facility] Work Phone: Neutrophils/100 WBC (Bld) 69.8 % 47-70 [facility] Work Phone: Potassium [Moles/Vol] 3.8 mmol/L 3.5-5.1 [facility] Work Phone: Protein [Mass/Vol] 7.2 g/dL 6.4-8.2 [facility] Work Phone: Sodium [Moles/Vol] 129 mmol/L 136-145 [facility] Work Phone: WBC (Bld) [#/Vol] 9.0 10*3/uL 4.4-11.0 [facility] Work Phone: Blood erythrocytes count (nu mber/volume)on 12-18-2021 RBC (Bld) [#/Vol] 3.40 10*6/uL 4.6-6.2 [facility] Work Phone: Blood hemoglobin measurement (mass/volume)on 12-18-2021 Hemoglobin (Bld) [Mass/Vol] 11.0 g/dL 13.0-16.5 [facility] Work Phone: Blood lymphocytes/100 leukoc yteson 12-18-2021 Lymphocytes/100 WBC (Bld) 15.0 % 19-41 [facility] Work Phone: Blood monocytes/100 leukocyt eson 12-18-2021 Monocytes/100 WBC (Bld) 13.7 % 0-10 [facility] Work Phone: Blood platelet mean volumeon 12-18-2021 Platelet mean volume (Bld) [Entitic vol] 8.5 fL 6.2-12.0 [facility] Work Phone: Determination of erythrocyte mean corpuscular volume (MCV)on 12-18-2021 MCV (RBC) [Entitic vol] 91.8 fL 80-94 [facility] Work Phone: Hematocrit Auto (Bld) [Volum e fraction]on 12-18-2021 Hematocrit (Bld) [Volume fraction] 31.2 % 40-54 [facility] Work Phone: Iron measurement (mass/mass) on 12-18-2021 Iron (Unsp spec) [Mass/Mass] 34 ug/dL 65-175 [facility] Laboratory - Chemistry and C hemistry - challengeon 12-18-2021 ALP [Catalytic activity/Vol] 92 U/L 45-117 [facility] Work Phone: ALT [Catalytic activity/Vol] 24 U/L 16-61 [facility] Work Phone: CO2 [Moles/Vol] 30.0 mmol/L 21.0-32.0 [facility] Work Phone: Globulin (S) [Mass/Vol] 4.0 g/dL 2.2-4.2 [facility] Work Phone: Magnesium [Mass/Vol] 2.0 mg/dL 1.6-2.6 [facility] Work Phone: Urea nitrogen/Creatinine [Mass ratio] 18.5 mg/mg 10-20 [facility] Work Phone: Laboratory - Hematology and Cell countson 12-18-2021 Erythrocyte distribution width (RBC) [Entitic vol] 46.4 fL 35.1-43.9 [facility] Work Phone: Erythrocyte distribution width (RBC) [Ratio] 13.8 % 11.6-14.6 [facility] Work Phone: Immature granulocytes/100 WBC (Bld) 0.600 % 0.0-0.9 [facility] Work Phone: Comment on above: IG% - Immature Granu locytes (promyelocytes, myelocytes and metamyelocytes) > 1% indicates that a LEFT SHIFT is Present. MCH (RBC) [Entitic mass] 32.4 pg 27.0-32.0 [facility] Work Phone: Nucleated RBC/100 WBC (Bld) [Ratio] 0 % 0-5 [facility] Work Phone: MCHC Auto (RBC) [Mass/Vol]on 12-18-2021 MCHC (RBC) [Mass/Vol] 35.3 g/dL 32-36 [facility] Work Phone: No Panel Informationon 12-18 Estimated Creatinine Clearance Calc 133.30 ml/min [facility] Work Phone: Estimated GFR (MDRD) Amer 225 mL/min >60 [facility] Work Phone: Comment on above: GFR Calc Estimated GFR (MDRD) Non-Af Amer 186 mL/min >60 [facility] Work Phone: Comment on above: Non- GFR Calc Thyroid Stimulating Hormone (TSH) 5.67 uIU/mL 0.358-3.74 [facility] Total Iron Binding Capacity 286 ug/dL 250-450 [facility] Platelets bldon 12-18-2021 Platelets (Bld) [#/Vol] 413 10*3/uL 150-450 [facility] Work Phone: Serum or plasma albumin yesi urement (mass/volume)on 12-18-2021 Albumin [Mass/Vol] 3.2 g/dL 3.2-5.0 [facility] Work Phone: Serum or plasma albumin/glob ulin mass ratioon 12-18-2021 Albumin/Globulin [Mass ratio] 0.8 {ratio} 0.9-2.4 [facility] Work Phone: Serum or plasma calcium yesi urement (mass/volume)on 12-18-2021 Calcium [Mass/Vol] 8.7 mg/dL 8.5-10.1 [facility] Work Phone: Serum or plasma creatinine m easurement (mass/volume)on 12-18-2021 Creatinine [Mass/Vol] 0.49 mg/dL 0.70-1.30 [facility] Work Phone: Comment on above: The validity of the calculated GFR & GFRAA in patients over 70 years has not been determined. Clinical correlation is essential. Serum or plasma ferritin davey surement (mass/volume)on 12-18-2021 Ferritin [Mass/Vol] 284 ng/mL 26-388 [facility] Serum or plasma iron saturat ion measurement (mass fraction)on 12-18-2021 Iron saturation [Mass fraction] 11.9 % 15.0-55.0 [facility] Serum or plasma urea nitroge n measurement (mass/volume)on 12-18-2021 Urea nitrogen [Mass/Vol] 9 mg/dL 7-18 [facility] Work Phone: Thin prep Papanicolaou smear with manual screeningon 12-18-2021 Thin prep Papanicolaou smear with manual screening 12 U/L 15-37 [facility] Work Phone: Thin prep Papanicolaou smear with manual screening 5 5-15 [facility] Work Phone: Tobacco Screening.on 022 Fall risk assessment a) No falls within the last year [facility] Work Phone: Tobacco use status CPHS b) No [facility] Work Phone: Absolute lymphocyte counton 12-15-2021 Lymphocytes Auto (Unsp spec) [#/Vol] 0.82 10*3/uL 0.83-4.51 [facility] Work Phone: Basophil percentageon 2021 Basophils/100 WBC (Bld) 0.4 % 0-1 [facility] Work Phone: Eosinophils/100 WBC (Bld) 0.4 % 0-5 [facility] Work Phone: Neutrophils (Bld) [#/Vol] 5.6 10*3/uL 2.0-7.7 [facility] Work Phone: Neutrophils/100 WBC (Bld) 75.7 % 47-70 [facility] Work Phone: WBC (Bld) [#/Vol] 7.4 10*3/uL 4.4-11.0 [facility] Work Phone: Blood erythrocytes count (nu mber/volume)on 12-15-2021 RBC (Bld) [#/Vol] 3.93 10*6/uL 4.6-6.2 [facility] Work Phone: Blood hemoglobin measurement (mass/volume)on 12-15-2021 Hemoglobin (Bld) [Mass/Vol] 12.5 g/dL 13.0-16.5 [facility] Work Phone: Blood lymphocytes/100 leukoc yteson 12-15-2021 Lymphocytes/100 WBC (Bld) 11.1 % 19-41 [facility] Work Phone: Blood monocytes/100 leukocyt eson 12-15-2021 Monocytes/100 WBC (Bld) 11.9 % 0-10 [facility] Work Phone: Blood platelet mean volumeon 12-15-2021 Platelet mean volume (Bld) [Entitic vol] 8.6 fL 6.2-12.0 [facility] Work Phone: Determination of erythrocyte mean corpuscular volume (MCV)on 12-15-2021 MCV (RBC) [Entitic vol] 90.8 fL 80-94 [facility] Work Phone: Hematocrit Auto (Bld) [Volum e fraction]on 12-15-2021 Hematocrit (Bld) [Volume fraction] 35.7 % 40-54 [facility] Work Phone: Laboratory - Hematology and Cell countson 12-15-2021 Erythrocyte distribution width (RBC) [Entitic vol] 45.6 fL 35.1-43.9 [facility] Work Phone: Erythrocyte distribution width (RBC) [Ratio] 13.4 % 11.6-14.6 [facility] Work Phone: Immature granulocytes/100 WBC (Bld) 0.500 % 0.0-0.9 [facility] Work Phone: Comment on above: IG% - Immature Granu locytes (promyelocytes, myelocytes and metamyelocytes) > 1% indicates that a LEFT SHIFT is Present. MCH (RBC) [Entitic mass] 31.8 pg 27.0-32.0 [facility] Work Phone: Nucleated RBC/100 WBC (Bld) [Ratio] 0 % 0-5 [facility] Work Phone: MCHC Auto (RBC) [Mass/Vol]on 12-15-2021 MCHC (RBC) [Mass/Vol] 35.0 g/dL 32-36 [facility] Work Phone: Platelets bldon 12-15-2021 Platelets (Bld) [#/Vol] 450 10*3/uL 150-450 [facility] Work Phone: Falls Risk Screeningon 12-04 Fall risk assessment a) No falls within the last year [facility] Work Phone: Tobacco use status [facility] b) No M [facility] Work Phone: Tobacco Screening.on 022 Fall risk assessment a) No falls within the last year [facility] Work Phone: Tobacco use status [facility] b) No M [facility] Work Phone: Absolute lymphocyte counton 11-20-2021 Lymphocytes Auto (Unsp spec) [#/Vol] 0.53 10*3/uL 0.83-4.51 [facility] Work Phone: Basophil percentageon 2021 Basophils/100 WBC (Bld) 0.2 % 0-1 [facility] Work Phone: Chloride [Moles/Vol] 95 mmol/L 98-107 [facility] Work Phone: Eosinophils/100 WBC (Bld) 0.8 % 0-5 [facility] Work Phone: Glucose [Mass/Vol] 151 mg/dL 74-106 [facility] Work Phone: Comment on above: Fasting Glucose resu lt greater than or equal to 126 mg/dL suggests DIABETES MELLITUS per A.D.A. criteria. Neutrophils (Bld) [#/Vol] 6.8 10*3/uL 2.0-7.7 [facility] Work Phone: Neutrophils/100 WBC (Bld) 81.2 % 47-70 [facility] Work Phone: Potassium [Moles/Vol] 4.3 mmol/L 3.5-5.1 [facility] Work Phone: Sodium [Moles/Vol] 130 mmol/L 136-145 [facility] Work Phone: WBC (Bld) [#/Vol] 8.4 10*3/uL 4.4-11.0 [facility] Work Phone: Blood erythrocytes count (nu mber/volume)on 11-20-2021 RBC (Bld) [#/Vol] 3.07 10*6/uL 4.6-6.2 [facility] Work Phone: Blood hemoglobin measurement (mass/volume)on 11-20-2021 Hemoglobin (Bld) [Mass/Vol] 10.0 g/dL 13.0-16.5 [facility] Work Phone: Blood lymphocytes/100 leukoc yteson 11-20-2021 Lymphocytes/100 WBC (Bld) 6.3 % 19-41 [facility] Work Phone: Blood monocytes/100 leukocyt eson 11-20-2021 Monocytes/100 WBC (Bld) 10.4 % 0-10 [facility] Work Phone: Blood platelet mean volumeon 11-20-2021 Platelet mean volume (Bld) [Entitic vol] 9.3 fL 6.2-12.0 [facility] Work Phone: Determination of erythrocyte mean corpuscular volume (MCV)on 11-20-2021 MCV (RBC) [Entitic vol] 93.5 fL 80-94 [facility] Work Phone: Hematocrit Auto (Bld) [Volum e fraction]on 11-20-2021 Hematocrit (Bld) [Volume fraction] 28.7 % 40-54 [facility] Work Phone: Laboratory - Chemistry and C hemistry - challengeon 11-20-2021 CO2 [Moles/Vol] 28.0 mmol/L 21.0-32.0 [facility] Work Phone: Cobalamin (Vitamin B12) [Mass/Vol] 486 pg/mL 211-911 [facility] Work Phone: Urea nitrogen/Creatinine [Mass ratio] 33.2 mg/mg 10-20 [facility] Work Phone: Laboratory - Hematology and Cell countson 11-20-2021 Erythrocyte distribution width (RBC) [Entitic vol] 48.7 fL 35.1-43.9 [facility] Work Phone: Erythrocyte distribution width (RBC) [Ratio] 14.2 % 11.6-14.6 [facility] Work Phone: Immature granulocytes/100 WBC (Bld) 1.100 % 0.0-0.9 [facility] Work Phone: Comment on above: IG% - Immature Granu locytes (promyelocytes, myelocytes and metamyelocytes) > 1% indicates that a LEFT SHIFT is Present. MCH (RBC) [Entitic mass] 32.6 pg 27.0-32.0 [facility] Work Phone: Nucleated RBC/100 WBC (Bld) [Ratio] 0 % 0-5 [facility] Work Phone: MCHC Auto (RBC) [Mass/Vol]on 11-20-2021 MCHC (RBC) [Mass/Vol] 34.8 g/dL 32-36 [facility] Work Phone: No Panel Informationon 11-20 Estimated GFR (MDRD) Amer 290 mL/min >60 [facility] Work Phone: Comment on above: GFR Calc Estimated GFR (MDRD) Non-Af Amer 240 mL/min >60 [facility] Work Phone: Comment on above: Non- GFR Calc Thyroid Stimulating Hormone (TSH) 32.90 uIU/mL 0.358-3.74 [facility] Work Phone: Platelets bldon 11-20-2021 Platelets (Bld) [#/Vol] 614 10*3/uL 150-450 [facility] Work Phone: Serum or plasma calcium yesi urement (mass/volume)on 11-20-2021 Calcium [Mass/Vol] 8.2 mg/dL 8.5-10.1 [facility] Work Phone: Serum or plasma creatinine m easurement (mass/volume)on 11-20-2021 Creatinine [Mass/Vol] 0.39 mg/dL 0.70-1.30 [facility] Work Phone: Comment on above: The validity of the calculated GFR & GFRAA in patients over 70 years has not been determined. Clinical correlation is essential. Serum or plasma transthyreti n measurement (mass/volume)on 11-20-2021 Prealbumin [Mass/Vol] 20.9 mg/dL 20.0-40.0 [facility] Work Phone: Serum or plasma urea nitroge n measurement (mass/volume)on 11-20-2021 Urea nitrogen [Mass/Vol] 13 mg/dL 7-18 [facility] Work Phone: Thin prep Papanicolaou smear with manual screeningon 11-20-2021 Thin prep Papanicolaou smear with manual screening 7 5-15 [facility] Work Phone: Coronavirus 2019 RNA by PCR, Screening Asymptomticon 11-17-2021 Coronavirus 2019 RNA by PCR, Screening Asymptomtic Not detected Normal See Below [facility] Work Phone: Comment on above: SOURCE: Nasal, Nasop haryngealReference Range: Not Detected.This test has received FDA Emergency Use Authorization (EUA) and has been verified by [facility] ([facility]). This test is only authorized for the duration of time that circumstances exist to justify the authorization of the emergency use of in vitro diagnostic tests for the detection of SARS-CoV-2 virus and/or diagnosis of COVID-19 infection under section 564(b)(1) of the Act, 21 U.S.C. 360bbb-3(b)(1), unless the authorization is terminated or revoked sooner. [facility] is certified under CLIA-88 as qualified to perform high complexity testing. Testing is performed in the [facility] located at [address] [place] [address].SARS-CoV-2/Flu/RSV Multiplex Test: Fact sheet for providers: https://www.fda.gov/media/737269/downloadFact sheet for patients: https://www.fda.gov/media/128502/download Renal Function Panelon 11-17 Albumin BCP dye [Mass/Vol] 3.1 g/dL below low threshold 3.4 - 5.0 [facility] Work Phone: Anion gap [Moles/Vol] 12 mmol/L 10 - 20 [facility] Work Phone: Calcium [Mass/Vol] 8.7 mg/dL 8.6 - 10.6 [facility] Work Phone: Chloride [Moles/Vol] 96 mmol/L below low threshold 98 - 107 MG-Otolaryngol [facility] Work Phone: CO2 [Moles/Vol] 29 mmol/L 21 - 32 MG-Otolar yngol [facility] Work Phone: Creatinine [Mass/Vol] 0.34 mg/dL below low threshold See Below MG-Otolaryngol [facility] Work Phone: Comment on above: Reference Range: 0.5 0 - 1.30 Glucose [Mass/Vol] 78 mg/dL 74 - 99 [facility]-[place] laryngol [facility] Work Phone: Phosphate [Mass/Vol] 3.8 mg/dL 2.5 [...] 4.8 mmol/L 3.5 - 5.3 MG- Otolaryngol [employer] Work Phone: Sodium [Moles/Vol] 132 mmol/L below low threshold 136 - 145 MG-Otolaryngol [facility] Work Phone: Urea nitrogen [Mass/Vol] 11 mg/dL 6 - 23 MG-Otolaryngol [facility] Work Phone: Renal Function Panel >90 >90 MG-O tolaryngol [email or web address] Work Phone: Comment on above: CALCULATIONS OF JORGE MATED GFR ARE PERFORMED USING THE 2020 CKD-EPI STUDY REFIT EQUATION WITHOUT THE RACE VARIABLE FOR THE IDMS-TRACEABLE CREATININE METHODS.https://jasn.asnjournals.org/content// ASN.0372659951 Vitamin D 25-Hydroxyon 11-17 25-hydroxyvitamin D3 [Mass/Vol] 23 ng/mL Abnormal MG-Otolaryngol ITYZ-[facility] Work Phone: Comment on above: .DEFICIENCY: < 20 NG /MLINSUFFICIENCY: 20-29 NG/MLSUFFICIENCY: 30-100 NG/MLTHIS ASSAY ACCURATELY QUANTIFIES THE SUM OFVITAMIN D3, 25-HYDROXY AND VIT D2,25-HYDROXY. Laboratory - Hematology and Cell countson 11-16-2021 Erythrocyte distribution width (RBC) [Ratio] 14.7 % above high threshold See Below MG-Otolaryngol [facility] Work Phone: Comment on above: Reference Range: 11. 5 - 14.5 Hematocrit (Bld) [Volume fraction] 32.3 % below low threshold See Below [facility]-Otolaryngol [facility] Work Phone: Comment on above: Reference Range: 41. 0 - 52.0 Hemoglobin (Bld) [Mass/Vol] 10.5 g/dL below low threshold See Below MG-Otolaryngol [facility] Work Phone: Comment on above: Reference Range: 13. 5 - 17.5 MCHC (RBC) [Mass/Vol] 32.5 g/dL See Below MG- Otolaryngol [facility] Work Phone: Comment on above: Reference Range: 32. 0 - 36.0 MCV (RBC) [Entitic vol] 99 fL 80 - 100 M G-Otolaryngol [facility] Work Phone: Platelets (Bld) [#/Vol] 560 10*3/uL above hi gh threshold 150 - 450 MG-Otolaryngol [facility] Work Phone: RBC (Bld) [#/Vol] 3.27 {x10E12/L} below low threshold See Below MG-Otolaryngol [facility] Work Phone: Comment on above: Reference Range: 4.5 0 - 5.90 WBC (Bld) [#/Vol] 6.6 10*3/uL 4.4 - 11.3 MG-Aniket laryngol [employer] Work Phone: Magnesium, Serumon 2 Magnesium [Mass/Vol] 1.97 mg/dL See Below MG-O tolaryngol ITYZ-[facility] Work Phone: Comment on above: Reference Range: 1.6 0 - 2.40 No Panel Informationon 11-16 0.0 {/100_WBC} 0.0-0.0 MG-Otolary ngol [employer] Work Phone: Renal Function Panelon 11-16 Albumin [...] 107 MG-Otolaryngol [facility] Work Phone: CO2 [Moles/Vol] 26 mmol/L 21 - 32 MG-Otolar yngol [facility] Work Phone: Creatinine [Mass/Vol] 0.32 mg/dL below low threshold See Below [facility]-Otolaryngol [facility] Work Phone: Comment on above: Reference Range: 0.5 0 - 1.30 Glucose [Mass/Vol] 96 mg/dL 74 - 99 MG-Aniket laryngol [facility] Work Phone: Phosphate [Mass/Vol] 3.8 mg/dL 2.5 - 4.9 MG-O tolaryngol [facility] Work Phone: Comment on above: The performance adryan acteristics of phosphorus testing in heparinized plasma have been validated by the individual laboratory site where testing is performed. Testing on heparinized plasma is not approved by the FDA; however, such approval is not necessary. Potassium [Moles/Vol] 4.9 mmol/L 3.5 - 5.3 MG- Otolaryngol [facility] Work Phone: Sodium [Moles/Vol] 131 mmol/L below low threshold 136 - 145 [facility]-Otolaryngol [facility] Work Phone: Urea nitrogen [Mass/Vol] 12 mg/dL 6 - 23 MG-Otolaryngol [facility] Work Phone: Renal Function Panel >90 >90 MG-O tolaryngol [facility] Work Phone: Comment on above: CALCULATIONS OF JORGE MATED GFR ARE PERFORMED USING THE 2020 CKD-EPI STUDY REFIT EQUATION WITHOUT THE RACE VARIABLE FOR THE IDMS-TRACEABLE CREATININE METHODS.https://jasn.asnjournals.org/content// ASN.2505833848 Renal Function Panelon 11-15 Albumin BCP dye [Mass/Vol] 3.2 g/dL below low threshold 3.4 - 5.0 MG-Otolaryngol [facility] Work Phone: Anion gap [Moles/Vol] 14 mmol/L 10 - 20 MG- Otolaryngol [facility] Work Phone: Calcium [Mass/Vol] 8.3 mg/dL below low threshold 8.6 - 10.6 MG-Otolaryngol [facility] Work Phone: Chloride [Moles/Vol] 99 mmol/L 98 - 107 MG-O tolaryngol [facility] Work Phone: CO2 [Moles/Vol] 23 mmol/L 21 - 32 MG-Otolar yngol [facility] Work Phone: Creatinine [Mass/Vol] 0.28 mg/dL below low threshold See Below MG-Otolaryngol [facility] Work Phone: Comment on above: Reference Range: 0.5 0 - 1.30 Glucose [Mass/Vol] 102 mg/dL above high threshold 74 - 99 MG-Otolaryngol [facility] Work Phone: Phosphate [Mass/Vol] 3.8 mg/dL 2.5 [...] above high threshold 3.5 - 5.3 MG-Otolaryngol [facility] Work Phone: Comment on above: MILD HEMOLYSIS DETEC ISABELL. The result may be falsely elevated due tohemolysis or other interferents. Clinical correlation is recommended.Repeat testing may be considered. Sodium [Moles/Vol] 130 mmol/L below low threshold 136 - 145 MG-Otolaryngol [facility] Work Phone: Urea nitrogen [Mass/Vol] 14 mg/dL 6 - 23 MG-Otolaryngol [employer]-[facility] Work Phone: Renal Function Panel >90 >90 MG-O tolaryngol [email or web address] Work Phone: Comment on above: CALCULATIONS OF JORGE MATED GFR ARE PERFORMED USING THE 2020 CKD-EPI STUDY REFIT EQUATION WITHOUT THE RACE VARIABLE FOR THE IDMS-TRACEABLE CREATININE METHODS.https://jasn.asnjournals.org/content// ASN.1129808676 Laboratory - Chemistry and C hemistry - challengeon 11-14-2021 Creatinine (U) [Mass/Vol] 48.6 mg/dL See Below MG-Otolaryngol [facility] Work Phone: Comment on above: Reference Range: 20. 0 - 370.0 Osmolality (U) [Osmolality] 474 mosm/kg 200 - 1200 MG-Otolaryngol [facility] Work Phone: Potassium (U) [Moles/Vol] 21 mmol/L See Below MG-Otolaryngol [facility] Work Phone: Comment on above: Reference Range: Not Established Potassium/Creatinine (U) [Molar ratio] 43 {mmol/g_Creat} See Below MG-Otolaryng ol [facility] Work Phone: Comment on above: Reference Range: Not Established Sodium (U) [Moles/Vol] 79 mmol/L See Below MG -Otolaryngol [facility] Work Phone: Comment on above: Reference Range: Not Established Sodium/Creatinine (U) [Ratio] 163 {mmol/g_Creat} See Below MG-Otolaryngo l [employer] Work Phone: Comment on above: Reference Range: Not Established Urea nitrogen (U) [Mass/Vol] 627 mg/dL See Below [employer]Otolaryngol [employer]rummer[employer]yn[employer] Work Phone: Comment on above: Reference Range: Not Established Urea/Creatinine (U) [Molar ratio] 12.9 {g/g_Creat} See Below MG-Otolaryngol tvCompassamandaRedDrummerZeynep Work Phone: Comment on above: Reference Range: Not Established Laboratory - Hematology and Cell countson 11-14-2021 Erythrocyte distribution width (RBC) [Ratio] 14.7 % above high threshold See Below [employer]-Otolaryngol tvCompassamandaRedDrummerZeynep Work Phone: Comment on above: Reference Range: 11. 5 - 14.5 Hematocrit (Bld) [Volume fraction] 34.2 % below low threshold See Below [employer]-Otolaryngol tvCompassamandaRedDrummerZeynep Work Phone: Comment on above: Reference Range: 41. 0 - 52.0 Hemoglobin (Bld) [Mass/Vol] 11.3 g/dL below low threshold See Below [employer]-Otolaryngol [employer] Work Phone: Comment on above: Reference Range: 13. 5 - 17.5 MCHC (RBC) [Mass/Vol] 33.0 g/dL See Below [employer] Otolaryngol [employer]Zeyn[facility] Work Phone: Comment on above: Reference Range: 32. 0 - 36.0 MCV (RBC) [Entitic vol] 97 fL 80 - 100 M G-Otolaryngol [employer]amandaAmarant[employer] [facility] Work Phone: Platelets (Bld) [#/Vol] 421 10*3/uL 150 - 450 MG-Otolaryngol tvCompassamandaRedDrummerT[place] Work Phone: RBC (Bld) [#/Vol] 3.53 {x10E12/L} below low threshold See Below MG-Otolaryngol [employer] Work Phone: Comment on above: Reference Range: 4.5 0 - 5.90 WBC (Bld) [#/Vol] 8.0 10*3/uL 4.4 - 11.3 MG-Aniket laryngol [facility] Work Phone: Magnesium, Serumon Magnesium [Mass/Vol] 1.93 mg/dL See Below MG-O tolaryngol [facility]gy-[place] Work Phone: Comment on above: Reference Range: 1.6 0 - 2.40 No Panel Informationon 11-14 128 {mmol/g_Creat} 23 - 275 MG-Anik[place] laryngol [facility] Work Phone: 62 mmol/L See Below MG-Otolaryngol [facility] Work Phone: Comment on above: Reference Range: Not Established 0.0 {/100_WBC} 0.0-0.0 MG-Otolary ngol [facility] Work Phone: Renal Function Panelon 11-14 Albumin BCP dye [Mass/Vol] 2.7 g/dL below low threshold 3.4 - 5.0 MG-Otolaryngol [facility] Work Phone: Anion gap [Moles/Vol] 13 mmol/L 10 - 20 MG- Otolaryngol [facility] Work Phone: Calcium [Mass/Vol] 7.7 mg/dL below low threshold 8.6 - 10.6 MG-Otolaryngol [facility] Work Phone: Chloride [Moles/Vol] 98 mmol/L 98 - 107 MG-O tolaryngol [facility] Work Phone: CO2 [Moles/Vol] 23 mmol/L 21 - 32 MG-Otolar yngol [facility] Work Phone: Creatinine [Mass/Vol] 0.33 mg/dL below low threshold See Below MG-Otolaryngol [facility] Work Phone: Comment on above: Reference Range: 0.5 0 - 1.30 Glucose [Mass/Vol] 109 mg/dL above high threshold 74 - 99 MG-Otolaryngol [facility] Work Phone: Phosphate [Mass/Vol] 3.4 mg/dL 2.5 [...] 4.2 mmol/L 3.5 - 5.3 MG- Otolaryngol [facility] Work Phone: Sodium [Moles/Vol] 130 mmol/L below low threshold 136 - 145 MG-Otolaryngol [facility] Work Phone: Urea nitrogen [Mass/Vol] 15 mg/dL 6 - 23 MG-Otolaryngol [facility] Work Phone: Renal Function Panel >90 >90 MG-O tolaryngol ogy[facility] Work Phone: Comment on above: CALCULATIONS OF JORGE MATED GFR ARE PERFORMED USING THE 2020 CKD-EPI STUDY REFIT EQUATION WITHOUT THE RACE VARIABLE FOR THE IDMS-TRACEABLE CREATININE METHODS.https://jasn.asnjournals.org/content/early/ ASN.6257337972 Laboratory - Chemistry and C hemistry - challengeon 11-13-2021 Glucose [Mass/Vol] 83 mg/dL 74 - 99 MG-Aniket laryngol [facility] Work Phone: Laboratory - Hematology and Cell countson 11-13-2021 Erythrocyte distribution width (RBC) [Ratio] 14.5 % See Below MG-Otolaryngol [facility] Work Phone: Comment on above: Reference Range: 11. 5 - 14.5 Hematocrit (Bld) [Volume fraction] 32.7 % below low threshold See Below MG-Otolaryngol [facility] Work Phone: Comment on above: Reference Range: 41. 0 - 52.0 Hemoglobin (Bld) [Mass/Vol] 11.1 g/dL below low threshold See Below MG-Otolaryngol [facility] Work Phone: Comment on above: Reference Range: 13. 5 - 17.5 MCHC (RBC) [Mass/Vol] 33.9 g/dL See Below MG- Otolaryngol [employer]-[facility] Work Phone: Comment on above: Reference Range: 32. 0 - 36.0 MCV (RBC) [Entitic vol] 95 fL 80 - 100 M G-Otolaryngol [employer] Work Phone: Platelets (Bld) [#/Vol] 381 10*3/uL 150 - 450 MG-Otolaryngol [facility] Work Phone: RBC (Bld) [#/Vol] 3.46 {x10E12/L} below low threshold See Below MG-Otolaryngol [employer] Work Phone: Comment on above: Reference Range: 4.5 0 - 5.90 WBC (Bld) [#/Vol] 9.3 10*3/uL 4.4 - 11.3 MG-[place] laryngol [employer] Work Phone: Magnesium, Serumon Magnesium [Mass/Vol] 1.96 mg/dL See Below MG-O tolaryngol [facility] Work Phone: Comment on above: Reference Range: 1.6 0 - 2.40 No Panel Informationon 11-13 0.0 {/100_WBC} 0.0-0.0 MG-Otolary ngol [facility] Work Phone: Radiologyon 11-13-2021 XR Chest Single view Normal MG-O tolaryngol ogy[facility] Work Phone: Renal Function Panelon 11-13 Albumin BCP dye [Mass/Vol] 2.8 g/dL below low threshold 3.4 - 5.0 MG-Otolaryngol [facility] Work Phone: Anion gap [Moles/Vol] 12 mmol/L 10 - 20 MG- Otolaryngol [facility] Work Phone: Calcium [Mass/Vol] 7.9 mg/dL below low threshold 8.6 - 10.6 MG-Otolaryngol [facility] Work Phone: Chloride [Moles/Vol] 98 mmol/L 98 - 107 MG-O tolaryngol ogy-[place] Work Phone: CO2 [Moles/Vol] 26 mmol/L 21 - 32 MG-Otolar yngol [facility] Work Phone: Creatinine [Mass/Vol] 0.32 mg/dL below low threshold See Below MG-Otolaryngol [facility] Work Phone: Comment on above: Reference Range: 0.5 0 - 1.30 Glucose [Mass/Vol] 94 mg/dL 74 - 99 [facility]-[place] laryng[facility] Work Phone: Phosphate [Mass/Vol] 3.4 mg/dL 2.5 [...] 4.6 mmol/L 3.5 - 5.3 MG- Otolaryngol [facility] Work Phone: Sodium [Moles/Vol] 131 mmol/L below low threshold 136 - 145 MG-Otolaryngol [facility] Work Phone: Urea nitrogen [Mass/Vol] 11 mg/dL 6 - 23 MG-Otolaryngol [facility] Work Phone: Renal Function Panel >90 >90 MG-O tolaryngol [facility] Work Phone: Comment on above: CALCULATIONS OF JORGE MATED GFR ARE PERFORMED USING THE 2020 CKD-EPI STUDY REFIT EQUATION WITHOUT THE RACE VARIABLE FOR THE IDMS-TRACEABLE CREATININE METHODS.https://jasn.asnjournals.org/content// ASN.7710169528 Laboratory - Chemistry and C hemistry - challengeon 11-12-2021 Glucose [Mass/Vol] 160 mg/dL above high threshold 74 - 99 MG-Otolaryngol [facility] Work Phone: Glucose [Mass/Vol] 100 mg/dL above [...] % below low threshold See Below MG-Otolaryngol [facility] Work Phone: Comment on above: Reference Range: 41. 0 - 52.0 Hemoglobin (Bld) [Mass/Vol] 10.4 g/dL below low threshold See Below MG-Otolaryngol [facility] Work Phone: Comment on above: Reference Range: 13. 5 - 17.5 MCHC (RBC) [Mass/Vol] 34.2 g/dL See Below MG- Otolaryngol [facility] Work Phone: Comment on above: Reference Range: 32. 0 - 36.0 MCV (RBC) [Entitic vol] 95 fL 80 - 100 M G-Otolaryngol [facility] Work Phone: Platelets (Bld) [#/Vol] 331 10*3/uL 150 - 450 MG-Otolaryngol [facility] Work Phone: RBC (Bld) [#/Vol] 3.21 {x10E12/L} below low threshold See Below MG-Otolaryngol [facility] Work Phone: Comment on above: Reference Range: 4.5 0 - 5.90 WBC (Bld) [#/Vol] 5.9 10*3/uL 4.4 - 11.3 [facility]-[place] laryng[facility] Work Phone: Magnesium, Serumon 2 Magnesium [Mass/Vol] 1.90 mg/dL See Below MG-O tolaryngol [facility] Work Phone: Comment on above: Reference Range: 1.6 0 - 2.40 No Panel Informationon 11-12 0.0 {/100_WBC} 0.0-0.0 MG-Otolary ngol [facility] Work Phone: Renal Function Panelon 11-12 Albumin BCP dye [Mass/Vol] 2.6 g/dL below low threshold 3.4 - 5.0 MG-Otolaryngol [facility] Work Phone: Anion gap [Moles/Vol] 12 mmol/L 10 - 20 MG- Otolaryngol [facility] Work Phone: Calcium [Mass/Vol] 7.6 mg/dL below low threshold 8.6 - 10.6 MG-Otolaryngol [facility] Work Phone: Chloride [Moles/Vol] 101 mmol/L 98 - 107 MG-O tolaryngol [facility] Work Phone: CO2 [Moles/Vol] 26 mmol/L 21 - 32 MG-Otolar yngol [facility] Work Phone: Creatinine [Mass/Vol] 0.27 mg/dL below low threshold See Below MG-Otolaryngol [facility] Work Phone: Comment on above: Reference Range: 0.5 0 - 1.30 Glucose [Mass/Vol] 99 mg/dL 74 - 99 MG-Aniket laryngol [facility] Work Phone: Phosphate [Mass/Vol] 2.6 mg/dL 2.5 - 4.9 MG-O tolaryngol [facility] Work Phone: Comment on above: The performance adryan acteristics of phosphorus testing in heparinized plasma have been validated by the individual laboratory site where testing is performed. Testing on heparinized plasma is not approved by the FDA; however, such approval is not necessary. Potassium [Moles/Vol] 4.0 mmol/L 3.5 - 5.3 MG- Otolaryngol [facility] Work Phone: Sodium [Moles/Vol] 135 mmol/L below low threshold 136 - 145 MG-Otolaryngol [facility] Work Phone: Urea nitrogen [Mass/Vol] 11 mg/dL 6 - 23 MG-Otolaryngol [facility] Work Phone: Renal Function Panel >90 >90 MG-O tolaryngol ogy-[place] Work Phone: Comment on above: CALCULATIONS OF JORGE MATED GFR ARE PERFORMED USING THE 2020 CKD-EPI STUDY REFIT EQUATION WITHOUT THE RACE VARIABLE FOR THE IDMS-TRACEABLE CREATININE METHODS.https://jasn.asnjournals.org/content// ASN.0768512533 Laboratory - Chemistry and C hemistry - challengeon 11-11-2021 Glucose [Mass/Vol] 154 mg/dL above high threshold 74 - 99 MG-Otolaryngol [facility] Work Phone: Glucose [Mass/Vol] 108 mg/dL above high threshold 74 - 99 MG-Otolaryngol [facility] Work Phone: Glucose [Mass/Vol] 140 mg/dL above high threshold 74 - 99 MG-Otolaryngol [facility] Work Phone: Glucose [Mass/Vol] 187 mg/dL above high threshold 74 - 99 MG-Otolaryngol [facility] Work Phone: Laboratory - Hematology and Cell countson 11-11-2021 Erythrocyte distribution width (RBC) [Ratio] 14.0 % See Below MG-Otolaryngol [facility]gy[facility] Work Phone: Comment on above: Reference Range: 11. 5 - 14.5 Hematocrit (Bld) [Volume fraction] 29.5 % below low threshold See Below MG-Otolaryngol [facility] Work Phone: Comment on above: Reference Range: 41. 0 - 52.0 Hemoglobin (Bld) [Mass/Vol] 9.9 g/dL below low threshold See Below MG-Otolaryngol [facility] Work Phone: Comment on above: Reference Range: 13. 5 - 17.5 MCHC (RBC) [Mass/Vol] 33.6 g/dL See Below MG- Otolaryngol [facility] Work Phone: Comment on above: Reference Range: 32. 0 - 36.0 MCV (RBC) [Entitic vol] 96 fL 80 - 100 M G-Otolaryngol [facility] Work Phone: Platelets (Bld) [#/Vol] 308 10*3/uL 150 - 450 MG-Otolaryngol [facility] Work Phone: RBC (Bld) [#/Vol] 3.06 {x10E12/L} below low threshold See Below MG-Otolaryngol [facility] Work Phone: Comment on above: Reference Range: 4.5 0 - 5.90 WBC (Bld) [#/Vol] 11.2 10*3/uL 4.4 - 11.3 MG-Ot olaryngol [facility] Work Phone: Magnesium, Serumon Magnesium [Mass/Vol] 1.90 [...] below low threshold 3.4 - 5.0 MG-Otolaryngol [facility] Work Phone: Anion gap [Moles/Vol] 11 mmol/L 10 - 20 MG- Otolaryngol [facility] Work Phone: Calcium [Mass/Vol] 7.5 mg/dL below low threshold 8.6 - 10.6 MG-Otolaryngol [facility] Work Phone: Chloride [Moles/Vol] 98 mmol/L 98 - 107 MG-O tolaryngol [facility] Work Phone: CO2 [Moles/Vol] 28 mmol/L 21 - 32 MG-Otolar yngol [facility]gy-[facility] Work Phone: Creatinine [Mass/Vol] 0.20 mg/dL below low threshold See Below MG-Otolaryngol [facility] Work Phone: Comment on above: Reference Range: 0.5 0 - 1.30 Glucose [Mass/Vol] 115 mg/dL above high threshold 74 - 99 MG-Otolaryngol [facility] Work Phone: Phosphate [Mass/Vol] 2.6 mg/dL 2.5 - 4.9 MG-O tolaryngol [facility] Work Phone: Comment on above: The performance adryan acteristics of phosphorus testing in heparinized plasma have been validated by the individual laboratory site where testing is performed. Testing on heparinized plasma is not approved by the FDA; however, such approval is not necessary. Potassium [Moles/Vol] 3.7 mmol/L 3.5 - 5.3 MG- Otolaryngol [facility]gy[facility] Work Phone: Sodium [Moles/Vol] 133 mmol/L below low threshold 136 - 145 MG-Otolaryngol [facility]gy[facility] Work Phone: Urea nitrogen [Mass/Vol] 10 mg/dL 6 - 23 MG-Otolaryngol [facility] Work Phone: Renal Function Panel >90 >90 MG-O tolaryngol ogy-[facility] Work Phone: Comment on above: CALCULATIONS OF JORGE MATED GFR ARE PERFORMED USING THE 2020 CKD-EPI STUDY REFIT EQUATION WITHOUT THE RACE VARIABLE FOR THE IDMS-TRACEABLE CREATININE METHODS.https://jasn.asnjournals.org/content/early/ ASN.3074621666 Laboratory - Chemistry and C hemistry - challengeon 11-10-2021 Glucose [Mass/Vol] 211 mg/dL above high threshold 74 - 99 MG-Otolaryngol [facility] Work Phone: Laboratory - Hematology and Cell countson 11-10-2021 Erythrocyte distribution width (RBC) [Ratio] 14.3 % See Below MG-Otolaryngol [facility] Work Phone: Comment on above: Reference Range: 11. 5 - 14.5 Hematocrit (Bld) [Volume fraction] 30.0 % below low threshold See Below MG-Otolaryngol [facility] Work Phone: Comment on above: Reference Range: 41. 0 - 52.0 Hemoglobin (Bld) [Mass/Vol] 10.4 g/dL below low threshold See Below MG-Otolaryngol [facility]gy[facility] Work Phone: Comment on above: Reference Range: 13. 5 - 17.5 MCHC (RBC) [Mass/Vol] 34.7 g/dL See Below MG- Otolaryngol [employer] Work Phone: Comment on above: Reference Range: 32. 0 - 36.0 MCV (RBC) [Entitic vol] 97 fL 80 - 100 M G-Otolaryngol [employer] Work Phone: Platelets (Bld) [#/Vol] 275 10*3/uL 150 - 450 MG-Otolaryngol [employer] Work Phone: RBC (Bld) [#/Vol] 3.10 {x10E12/L} below low threshold See Below MG-Otolaryngol [facility] Work Phone: Comment on above: Reference Range: 4.5 0 - 5.90 WBC (Bld) [#/Vol] 11.2 10*3/uL 4.4 - 11.3 MG-Ot olaryngol [employer] Work Phone: Magnesium, Serumon Magnesium [Mass/Vol] 1.90 mg/dL See Below MG-O tolaryngol [facility] Work Phone: Comment on above: Reference Range: 1.6 0 - 2.40 No Panel Informationon 11-10 0.0 {/100_WBC} 0.0-0.0 MG-Otolary ngol [employer] Work Phone: Renal Function Panelon 11-10 Albumin BCP dye [Mass/Vol] 2.6 g/dL below low threshold 3.4 - 5.0 MG-Otolaryngol [facility] Work Phone: Anion gap [Moles/Vol] 11 mmol/L 10 - 20 MG- Otolaryngol [facility] Work Phone: Calcium [Mass/Vol] 7.9 mg/dL below low threshold 8.6 - 10.6 MG-Otolaryngol [facility] Work Phone: Chloride [Moles/Vol] 98 mmol/L 98 - 107 MG-O tolaryngol [facility] Work Phone: CO2 [Moles/Vol] 30 mmol/L 21 - 32 MG-Otolar yngol [facility] Work Phone: Creatinine [Mass/Vol] 0.26 mg/dL below low threshold See Below MG-Otolaryngol [facility] Work Phone: Comment on above: Reference Range: 0.5 0 - 1.30 Glucose [Mass/Vol] 134 mg/dL above high threshold 74 - 99 MG-Otolaryngol [facility] Work Phone: Phosphate [Mass/Vol] 3.9 mg/dL 2.5 [...] 4.0 mmol/L 3.5 - 5.3 MG- Otolaryngol [facility] Work Phone: Sodium [Moles/Vol] 135 mmol/L below [...] RACE VARIABLE FOR THE IDMS-TRACEABLE CREATININE METHODS.https://jasn.asnjournals.org/content// ASN.9354701419 Laboratory - Chemistry and C hemistry - challengeon 11-09-2021 Glucose [Mass/Vol] 106 mg/dL above high threshold 74 - 99 MG-Otolaryngol [facility] Work Phone: Glucose [Mass/Vol] 149 mg/dL above high threshold 74 - 99 MG-Otolaryngol [facility] Work Phone: Glucose [Mass/Vol] 105 mg/dL above high threshold 74 - 99 MG-Otolaryngol [facility] Work Phone: Laboratory - Hematology and Cell countson 11-09-2021 Erythrocyte distribution width (RBC) [Ratio] 13.9 % See Below MG-Otolaryngol [facility] Work Phone: Comment on above: Reference Range: 11. 5 - 14.5 Hematocrit (Bld) [Volume fraction] 31.8 % below low threshold See Below MG-Otolaryngol [facility] Work Phone: Comment on above: Reference Range: 41. 0 - 52.0 Hemoglobin (Bld) [Mass/Vol] 11.1 g/dL below low threshold See Below MG-Otolaryngol [facility]gy-[facility] Work Phone: Comment on above: Reference Range: 13. 5 - 17.5 MCHC (RBC) [Mass/Vol] 34.9 g/dL See Below MG- Otolaryngol ogy-[facility] Work Phone: Comment on above: Reference Range: 32. 0 - 36.0 MCV (RBC) [Entitic vol] 94 fL 80 - 100 M G-Otolaryngol [facility]gy-[facility] Work Phone: Platelets (Bld) [#/Vol] 276 10*3/uL 150 - 450 MG-Otolaryngol ogy-[facility] Work Phone: RBC (Bld) [#/Vol] 3.38 {x10E12/L} below low threshold See Below MG-Otolaryngol [facility] Work Phone: Comment on above: Reference Range: 4.5 0 - 5.90 WBC (Bld) [#/Vol] 10.3 10*3/uL 4.4 - 11.3 MG-Ot olaryngol [facility] Work Phone: Magnesium, Serumon Magnesium [Mass/Vol] 1.76 mg/dL See Below MG-O tolaryngol ogy-[facility] Work Phone: Comment on above: Reference Range: 1.6 0 - 2.40 No Panel Informationon 11-09 0.0 {/100_WBC} 0.0-0.0 MG-Otolary ngol ogy-[facility] Work Phone: Renal Function Panelon 11-09 Albumin BCP dye [Mass/Vol] 2.8 g/dL below low threshold 3.4 - 5.0 MG-Otolaryngol [facility]gy[facility] Work Phone: Anion gap [Moles/Vol] 11 mmol/L 10 - 20 MG- Otolaryngol [facility] Work Phone: Calcium [Mass/Vol] 7.7 mg/dL below low threshold 8.6 - 10.6 MG-Otolaryngol ogy[facility] Work Phone: Chloride [Moles/Vol] 94 mmol/L below low threshold 98 - 107 MG-Otolaryngol [facility]gy[facility] Work Phone: CO2 [Moles/Vol] 29 mmol/L 21 - 32 MG-Otolar yngol ogy-[facility] Work Phone: Creatinine [Mass/Vol] mg/dL See Below MG- [facility] Work Phone: Comment on above: Reference Range: 0.5 0 - 1.30 Glucose [Mass/Vol] 112 mg/dL above high threshold 74 - 99 [facility] Work Phone: Phosphate [Mass/Vol] 2.2 mg/dL below low threshold 2.5 - 4.9 [facility] Work Phone: Comment on above: The performance adryan acteristics of phosphorus testing in heparinized plasma have been validated by the individual laboratory site where testing is performed. Testing on heparinized plasma is not approved by the FDA; however, such approval is not necessary. Potassium [Moles/Vol] 3.4 mmol/L below low threshold 3.5 - 5.3 [facility] Work Phone: Sodium [Moles/Vol] 131 mmol/L below low threshold 136 - 145 [facility] Work Phone: Urea nitrogen [Mass/Vol] 7 mg/dL 6 - 23 [facility] Work Phone: Renal Function Panel >90 >90 [facility] Work Phone: Comment on above: CALCULATIONS OF JORGE MATED GFR ARE PERFORMED USING THE 2020 CKD-EPI STUDY REFIT EQUATION WITHOUT THE RACE VARIABLE FOR THE IDMS-TRACEABLE CREATININE METHODS.https://jasn.asnjournals.org/content// ASN.7527509911 Laboratory - Chemistry and C hemistry - challengeon 11-08-2021 Glucose [Mass/Vol] 130 mg/dL above high threshold 74 - 99 MG-Otolaryngol ogy-[place] Work Phone: Glucose [Mass/Vol] 106 mg/dL above high threshold 74 - 99 MG-Otolaryngol ogy-[place] Work Phone: Glucose [Mass/Vol] 122 mg/dL above high threshold 74 - 99 MG-Otolaryngol ogy-[place] Work Phone: Laboratory - Hematology and Cell countson 11-08-2021 Erythrocyte distribution width (RBC) [Ratio] 14.1 % See Below MG-Otolaryngol ogy-[place] Work Phone: Comment on above: Reference Range: [...] [Mass/Vol] 34.1 g/dL See Below MG- Otolaryngol ogy-[place] Work Phone: Comment on above: Reference Range: 32. 0 - 36.0 MCV (RBC) [Entitic vol] 95 fL 80 - 100 M G-Otolaryngol tvCompassamanda-[place] Work Phone: Platelets (Bld) [#/Vol] 342 10*3/uL 150 - 450 MG-Otolaryngol ogy-[place] Work Phone: RBC (Bld) [#/Vol] 3.71 {x10E12/L} below low threshold See Below MG-Otolaryngol ogy-[place] Work Phone: Comment on above: Reference Range: 4.5 0 - 5.90 WBC (Bld) [#/Vol] 9.5 10*3/uL 4.4 - 11.3 MG-Aniket laryngol ITYZ-[place] Work Phone: Magnesium, Serumon 2 Magnesium [Mass/Vol] 1.67 mg/dL See Below MG-O tolaryngol ogy-[place] Work Phone: Comment on above: Reference Range: 1.6 0 - 2.40 No Panel Informationon 11-08 0.0 {/100_WBC} 0.0-0.0 MG-Otolary ngol ogy-[place] Work Phone: Renal Function Panelon 11-08 Albumin BCP dye [Mass/Vol] 3.6 g/dL 3.4 - 5.0 MG-Otolaryngol ogy[facility] Work Phone: Anion gap [Moles/Vol] 16 mmol/L 10 - 20 MG- Otolaryngol ogy-[place] Work Phone: Calcium [Mass/Vol] 8.3 mg/dL below low threshold 8.6 - 10.6 MG-Otolaryngol ogy-[place] Work Phone: Chloride [Moles/Vol] 93 mmol/L below low threshold 98 - 107 MG-Otolaryngol ogy[facility] Work Phone: CO2 [Moles/Vol] 27 mmol/L 21 - 32 MG-Otolar yngol ogy-[place] Work Phone: Creatinine [Mass/Vol] 0.38 mg/dL below low threshold See Below MG-Otolaryngol ogy-[place] Work Phone: Comment on above: Reference Range: 0.5 0 - 1.30 Glucose [Mass/Vol] 84 mg/dL 74 - 99 MG-Aniket laryngol ogy-[place] Work Phone: Phosphate [Mass/Vol] 2.8 mg/dL 2.5 [...] 3.9 mmol/L 3.5 - 5.3 MG- Otolaryngol ogy-[place] Work Phone: Sodium [Moles/Vol] 132 mmol/L below low threshold 136 - 145 MG-Otolaryngol ogy-[place] Work Phone: Urea nitrogen [Mass/Vol] 6 mg/dL 6 - 23 MG-Otolaryngol ogy-[place] Work Phone: Renal Function Panel >90 >90 MG-O tolaryngol ogy-[place] Work Phone: Comment on above: CALCULATIONS OF JORGE MATED GFR ARE PERFORMED USING THE 2020 CKD-EPI STUDY REFIT EQUATION WITHOUT THE RACE VARIABLE FOR THE IDMS-TRACEABLE CREATININE METHODS.https://jasn.asnjournals.org/content/early/ ASN.3064371395 Laboratory - Blood bankon ABO group Nom (Bld) A MG-Ot olaryngol ogy-[place] [address] Work Phone: Rh immune globulin screen (Bld) [Interp] Positive MG-Otolary ngol ogy-[place] [address] Work Phone: Laboratory - Chemistry and C hemistry - challengeon 11-07-2021 Anion gap (Bld) [Moles/Vol] 11 mmol/L 10 - 25 MG-Otolaryngol ogy-[place] [address] Work Phone: Calcium.ionized (Bld) [Moles/Vol] 1.09 mmol/L below low threshold See Below MG-Otolaryngol ogy-[place] [address] Work Phone: Comment on above: Reference Range: 1.1 0 - 1.33 Chloride [Moles/Vol] 96 mmol/L below low threshold 98 - 107 MG-Otolaryngol ogy-[place] [address] Work Phone: CO2 (Bld) [Partial pressure] 38 mm[Hg] 38 - 42 MG-Otolaryngol ogy-[place] [address] Work Phone: Glucose [Mass/Vol] 122 mg/dL above high threshold 74 - 99 MG-Otolaryngol ogy-[place] [address] Work Phone: HCO3 (Bld) [Moles/Vol] 25.8 mmol/L See Below M G-Otolaryngol ogy-[place] [address] Work Phone: Comment on above: Reference Range: 22. 0 - 26.0 Lactate [Moles/Vol] 0.9 mmol/L 0.4 - 2.0 MG-Ot olaryngol ogy-[place] [address] Work Phone: Oxygen (Bld) [Partial pressure] 190 mm[Hg] above high threshold 85 - 95 MG-Otolaryngol ogy-[place] [address] Work Phone: pH (Bld) 7.44 [pH] above high threshold See Below MG-Otolaryngol ogy-[place] [address] Work Phone: Comment on above: Reference Range: 7.3 8 - 7.42 Potassium [Moles/Vol] 3.7 mmol/L 3.5 - 5.3 MG- Otolaryngol ogy-[place] [address] Work Phone: Sodium [Moles/Vol] 129 mmol/L below low threshold 136 - 145 MG-Otolaryngol ogy-[place] [address] Work Phone: Anion gap (Bld) [Moles/Vol] 9 mmol/L below low threshold 10 - 25 MG-Otolaryngol ogy-[place] [address] Work Phone: Calcium.ionized (Bld) [Moles/Vol] 1.08 mmol/L below low threshold See Below MG-Otolaryngol ogy-[place] [address] Work Phone: Comment on above: Reference Range: 1.1 0 - 1.33 Chloride [Moles/Vol] 95 mmol/L below low threshold 98 - 107 MG-Otolaryngol ogy-[place] [address] Work Phone: CO2 (Bld) [Partial pressure] 37 mm[Hg] below low threshold 38 - 42 MG-Otolaryngol ogy-[place] [address] Work Phone: Glucose [Mass/Vol] 109 mg/dL above high threshold 74 - 99 MG-Otolaryngol ogy-[place] [address] Work Phone: HCO3 (Bld) [Moles/Vol] 26.9 mmol/L above hig h threshold See Below MG-Otolaryngol ogy-[place] [address] Work Phone: Comment on above: Reference Range: 22. 0 - 26.0 Lactate [Moles/Vol] 0.6 mmol/L 0.4 - 2.0 MG-Ot olaryngol ogy-[place] [address] Work Phone: Oxygen (Bld) [Partial pressure] 209 mm[Hg] above high threshold 85 - 95 MG-Otolaryngol ogy-[place] [address] Work Phone: pH (Bld) 7.47 [pH] above high threshold See Below MG-Otolaryngol ogy-[place] [address] Work Phone: Comment on above: Reference Range: 7.3 8 - 7.42 Potassium [Moles/Vol] 4.0 mmol/L 3.5 - 5.3 MG- Otolaryngol ogy-[place] [address] Work Phone: Sodium [Moles/Vol] 127 mmol/L below low threshold 136 - 145 MG-Otolaryngol ogy-[place] [address] Work Phone: Laboratory - Hematology and Cell countson 11-07-2021 Hematocrit (Bld) [Volume fraction] 36.0 % below low threshold See Below MG-Otolaryngol ogy-[place] [address] Work Phone: Comment on above: Reference Range: 41. 0 - 52.0 Hemoglobin (Bld) [Mass/Vol] 12.2 g/dL below low threshold See Below MG-Otolaryngol ogy-[place] [address] Work Phone: Comment on above: Reference Range: 13. 5 - 17.5 Hematocrit (Bld) [Volume fraction] 38.0 % below low threshold See Below MG-Otolaryngol ogy-[place] [address] Work Phone: Comment on above: Reference Range: 41. 0 - 52.0 Hemoglobin (Bld) [Mass/Vol] 12.9 g/dL below low threshold See Below MG-Otolaryngol ogy-[place] [address] Work Phone: Comment on above: Reference Range: 13. 5 - 17.5 No Panel Informationon 11-07 1.7 mmol/L -2.0 - 3.0 MG-Otolaryngol ogy-[place] [address] Work Phone: 100 % 94 - 100 MG-Otolaryngol ogy-[place] [address] Work Phone: 37.0 {degrees_C} MG-Otola ryngol ogy-[place] [address] Work Phone: Comment on above: NOTE: PATIENT RESULT S ARE NOT CORRECTED FOR TEMPERATURE. 3.2 mmol/L above high threshold -2.0 - 3.0 MG-Otolaryngol ogy-[place] [address] Work Phone: 100 % 94 - 100 MG-Otolaryngol ogy-[place] [address] Work Phone: 37.0 {degrees_C} MG-Otola ryngol ogy-[place] [address] Work Phone: Comment on above: NOTE: PATIENT RESULT S ARE NOT CORRECTED FOR TEMPERATURE. MG-Otolaryngol ogy-[place] Work Phone: Coronavirus 2019 RNA by PCR, Screening Asymptomticon 11-06-2021 Coronavirus 2019 RNA by PCR, Screening Asymptomtic Not detected Normal See Below MG-Otolaryngol ogy-[place] [address] Work Phone: Comment on above: SOURCE: [...] make patient management decisions.Fact sheet for providers: https://www.fda.gov/media/488575/downloadFact sheet for patients: https://www.fda.gov/media/433381/downloadThis test has received FDA Emergency Use Authorization (EUA) and has been verified by [facility] ([facility]). This test is only authorized for the duration of time that circumstances exist to justify the authorization of the emergency use of in vitro diagnostic tests for the detection of SARS-CoV-2 virus and/or diagnosis of COVID-19 infection under section 564(b)(1) of the Act, 21 U.S.C. 360bbb-3(b)(1), unless the authorization is terminated or revoked sooner. [facility] is certified under CLIA-88 as qualified to perform high complexity testing. Testing is performed in the [facility] laboratories located at [address] [place] [address]. Laboratory - Coagulationon 0 11-02-2021 aPTT Coag (PPP) [Time] 35 s 26 - 39 MG -Otolaryngol ogy-[place] Work Phone: Comment on above: Note new reference r xena as of 08/22/2021 at 10:00am. INR Coag (PPP) [Relative time] 1.0 {INR} 0.9 - 1.1 MG-Otolaryngol ogy-[place] Work Phone: PT Coag (PPP) [Time] 11.5 s 9.8 - 13.4 MG-O tolaryngol ogy-[place] Work Phone: Comment on above: Note new reference r xena as of 08/22/2021 at 10:00am. Tobacco Screening.on 022 Fall risk assessment a) No falls within the last year MG-Otolaryngol ogy-[place] Work Phone: Tobacco use status [facility] b) No M G-Otolaryngol ogy-[place] Work Phone: CT Neck with Contraston CT Neck W contrast IV Please click on th e link to view the study images Normal MG-Anesthesiol [facility]gy-[facility] Work Phone: CT Neck W contrast IV Normal MG- Otolaryngol ogy-Admin [place] [address] Work Phone: CTA ABD Aorta With Bilat Tamar ofem Extr Runoff w/wo Cont Post Procon 10-31-2021 CTA ABD Aorta With Bilat Iliofem Extr Runoff w/wo Cont Post Proc Please click on the link to view the study images Normal MG-Anesthesiol [facility]gy-[facility] Work Phone: CTA ABD Aorta With Bilat Iliofem Extr Runoff w/wo Cont Post Proc Normal MG-Otolaryngol ogy-Admin [place] [address] Work Phone: Complete Blood Count + [...] RACE VARIABLE FOR THE IDMS-TRACEABLE CREATININE METHODS.https://jasn.asnjournals.org/content// ASN.5412862732 http://UHMUSEPRDAIO0 1:8 080/marybeth/museweb .dll?RetrieveTestByDate Time?YqdfbkyPT=[id number] 2&Date=04-24-2022&Time= 14%3a18%3a57%3a00&TestT ype=ECG&Site=1&OutputTy pe=PDF&Ext=PDF MG-Otolaryngol ogy-[place] Work Phone: Normal sinus rhythm MG-Ot olaryngol ogy-[place] Work Phone: Borderline Abnormal MG-Ot olaryngol ogy-[place] Work Phone: 403 1 MG-Otolaryngol ogy-[place] Work Phone: 391 1 MG-Otolaryngol ogy-[place] Work Phone: 190 1 MG-Otolaryngol ogy-[place] Work Phone: 139 1 MG-Otolaryngol ogy-[place] Work Phone: 214 1 MG-Otolaryngol ogy-[place] Work Phone: 15 1 MG-Otolaryngol ogy-[place] Work Phone: 58 1 MG-Otolaryngol ogy-[place] Work Phone: 92 1 MG-Otolaryngol ogy-[place] Work Phone: 81 1 MG-Otolaryngol ogy-[place] Work Phone: 430 1 MG-Otolaryngol ogy-[place] Work Phone: 354 1 MG-Otolaryngol ogy-[place] Work Phone: 88 1 MG-Otolaryngol ogy-[place] Work Phone: 150 1 MG-Otolaryngol ogy-[place] Work Phone: 89 1 MG-Otolaryngol ogy-[place] Work Phone: Radiologyon 10-31-2021 XR Chest 2 Views Normal MG-Anest hesiol ogy-[facility] Work Phone: TSH - Thyroid Stimulating Ho rmone, Serumon 10-31-2021 TSH Qn 20.51 m[IU]/L above high threshold See Below MG-Anesthesiol ogy-[facility] Work Phone: Comment on above: Reference Range: 0.4 4 - 3.98 TSH testing is performed using different testing methodology at [facility] than at other [facility]. Direct result comparisons should only be made within the same method. Blood Urea Nitrogen, Serumon 10-25-2021 Urea nitrogen [Mass/Vol] 8 mg/dL 6 - 23 MG-Otolaryngol ogy-[facility] [place] [address] Work Phone: Creatinine, Serumon 10-25-19 Creatinine [Mass/Vol] 0.36 mg/dL below low threshold See Below MG-Otolaryngol ogy-[facility] [place] [address] Work Phone: Comment on above: Reference Range: 0.5 0 - 1.30 Creatinine, Serum >90 >90 MG-Otol aryngol ogy-Admin [place] [address] Work Phone: Comment on above: CALCULATIONS OF JORGE MATED GFR ARE PERFORMED USING THE 2020 CKD-EPI STUDY REFIT EQUATION WITHOUT THE RACE VARIABLE FOR THE IDMS-TRACEABLE CREATININE METHODS.https://jasn.asnjournals.org/content// ASN.7163136349 Tobacco Screening.on 022 Fall risk assessment a) No falls within the last year MP-Otolaryngol ogy-[place] Work Phone: Tobacco use status [facility] a) Yes M P-Otolaryngol ogy-[place] Work Phone: Tobacco Screening. Yes MP-[place] laryngol ogy-[place] Work Phone: CNPIrina 10-03-2021 CNPN Telephone (OTOLMM) MY JAMA ([id number]) 1960 M Date Time Provider Department 10/03/21 [...] to stop his hyperbaric oxygen therapy. ENT supply technician was messaged and will call the patient tomorrow. They had no further questions. Laurita Mabry MD Marcell Morris 10/04/2021 8:48 AM Signed Lul, A nurse from [facility] named Georgina called in this morning to [...] Rachel Brooks; ENT. Her telephone number is [phone] ([facility]) Just letting you guys know FOR Records Purposes: (PT wants us to fax them info) Their fax is [phone] I will fax what is needed. Renzo Pichardo MD 10/04/2021 11:14 AM Signed gregorio Chacko 10/04/2021 4:26 PM Signed [facility]- they have done radiation oncology in the past. 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 They are asking for OV notes, path results. Please fax to them at [phone]. Siobhan Eli Pss 10/05/2021 2:15 PM Signed [...] Encounter Status:Closed by LAURITA MABRY on [facility]/03/[facility]OTOLMM ) ANAMY THURMAN ([id number]) 1960 M Date Time Provider Department 10/02/21 3:00 PM JESIKA PICHARDO During your visit today, we recorded the following information about you: Jesika Pichardo MD 10/02/2021 3:45 PM Signed HPI My Encisomore is a 61 year old male who [...] electronic medical record. Referring Provider: JESIKA PICHARDO [[id number]] Allergies As of Date: 10/02/2021 (No Known [...] Encounter Status:Closed by JESIKA PICHARDO on 10/02/21 [facility] CNOVon 09-28-2021 CNOV Office Visit (OTOLMM ) MY JAMA ([id number]) 1960 M Date Time Provider Department 09/28/21 [...] waiting adequat (more content not included)... Normal [facility] SURGICAL PATHOLOGYon 022 SURGICAL PATHOLOGY Specimen originated from [facility] Specimen #: [id number] Submitting Physician: LAURITA MABRY FINAL DIAGNOSIS Gingiva, [...] in-situ hybridization tests have been determined by [facility]'s [facility] [place] [facility]) in a manner consistent with CLIA requirements. One or more of these tests have not been cleared or approved by the FDA. [facility] is regulated under CLIA as [...] GROSS DESCRIPTION A. Received in formalin labeled "gingiva mandible, biopsy" are two irregularly shaped and unoriented pieces of pink-mcmahno soft tissue that aggregate to 0.9 x 0.4 x 0.3 cm. The specimen is submitted in toto in formalin in cassette A1. JOAO/vic 09/29/2021 Gross examination performed at [facility], [address] [place] [address] Date of Report: 10/03/2021 Date of Procedure: 09/28/2021 Date of Receipt: 09/29/2021 Submitted by: LAURITA MABRY Location: OTOLMM Diagnostic interpretation performed at [facility], [address] [place] [address]. CLIA Number: [id number] Normal [facility] Urinalysis, Office ([id number])on 08-15-2021 Bilirubin Ql (U) Negative Normal Comprehe nsive Internal Medicine; [facility] Work Phone: Glucose Test strip (U) [Mass/Vol] Negative Normal [facility]; [facility] Work Phone: Hemoglobin Ql (U) non-hemolyzed trace Normal [facility]; [facility] Work Phone: Ketones Ql (U) Negative Normal [facility]; [facility] Work Phone: Leukocyte esterase Test strip Ql (U) Negative Normal [facility]; [facility] Work Phone: Nitrite Ql (U) Negative Normal [facility]; [facility] Work Phone: pH (U) 7 [pH] Normal [facility]; [facility] Work Phone: Protein Ql (U) Negative Normal [facility]; [facility] Work Phone: Specific gravity (U) [Rel density] 1.015 1 Normal [facility]; [facility] Work Phone: Urobilinogen (24H U) [Mass/Time] Normal Normal [facility] Internal Medicine; [facility] Work Phone: Metabolic Panel, [facility] ve ([id number])Ordered By: Financial Processing Clerk on 07-26-2021 Albumin [Mass/Vol] 4.3 g/dL Normal 3.8-4.9 [facility] Internal Medicine; [facility] Work Phone: Comment on above: PATIENT NOT FASTINGP ERFORMED BY: [id number] BrazzleboxCone Health Alamance Regional [id number] Albumin/Globulin [Mass ratio] 1.4 {ratio} Normal 1.2-2.2 [facility]; [facility] Work Phone: Comment on above: PATIENT NOT FASTINGP ERFORMED BY: [id number] KoalaDealCone Health Alam[facility] Regional [id number] ALP [Catalytic activity/Vol] 115 U/L Normal 44-121 [facility]; [facility] Work Phone: Comment on above: Please note refere nce interval change PATIENT NOT FASTINGP ERFORMED BY: CB [facility] [id number] Dikc RoadDublin [place] [id number] ALT [Catalytic activity/Vol] 12 U/L Normal 0-44 [facility]; [facility] Work Phone: Comment on above: PATIENT NOT FASTINGP ERFORMED BY: CB [facility] [id number] Dick RoadDublin [place] [id number] AST [Catalytic activity/Vol] 19 U/L Normal 0-40 [facility]; [facility] Work Phone: Comment on above: PATIENT NOT FASTINGP ERFORMED BY: CB [facility] [id number] Dick RoadDublin [place] [id number] Bilirubin [Mass/Vol] 0.2 mg/dL Normal 0.0-1.2 Comp rehensive Internal Medicine; [facility] Work Phone: Comment on above: PATIENT NOT FASTINGP ERFORMED BY: CB [facility] Eiomoy5657 Dick RoadDublin [place] [id number] Calcium [Mass/Vol] 9.4 mg/dL Normal 8.7-10.2 [facility]; [facility] Work Phone: Comment on above: PATIENT NOT FASTINGP ERFORMED BY: CB [facility] [id number] Dick RoadDublin [place] [id number] Chloride [Moles/Vol] 86 mmol/L Abnormal 96-106 Comp rehensive Internal Medicine; [facility] Work Phone: Comment on above: PATIENT NOT FASTINGP ERFORMED BY: CB [facility] Yzoidw3029 [address] RoadDublin [place] [id number] CO2 [Moles/Vol] 24 mmol/L Normal 20-29 [facility]prehcranston [facility] hospitale [facility]; [facility] Work Phone: Comment on above: PATIENT NOT FASTINGP ERFORMED BY: CB [facility] Ctasvq7056 Dick RoadDublin [place] [id number] Creatinine [Mass/Vol] 0.53 mg/dL Abnormal 0.76-1.27 [facility] prehensive Internal Medicine; [facility] Work Phone: Comment on above: PATIENT NOT FASTINGP ERFORMED BY: SAGRARIO Cuevas6370 Kapil [facility] MichiganGaryCaroMont [facility] [id number] GFR/1.73 sq M.predicted among blacks CKD-EPI (S/P/Bld) [Vol rate/Area] 134 mL/min/1.73 Normal [facility]; [facility] Work Phone: Comment on above: In accordance with recommendations from the NKF-ASN Task force, Alex is in the process of updating its eGFR calculation to the 2020 CKD-EPI creatinine equation that estimates kidney function without a race variable. PATIENT NOT FASTINGP ERFORMED BY: SAGRARIO Cuevas6370 DickCooper [facility] [place] [id number] GFR/1.73 sq M.predicted among non-blacks CKD-EPI (S/P/Bld) [Vol rate/Area] 116 mL/min/1.73 Normal [facility]; [facility] Work Phone: Comment on above: PATIENT NOT FASTINGP ERFORMED BY: SAGRARIO Gomezlin6370 [facility] [id number] Globulin (S) [Mass/Vol] 3.1 g/dL Normal 1.5-4.5 C [facility]; [facility] Work Phone: Comment on above: PATIENT NOT FASTINGP ERFORMED BY: SAGRARIO Cuevas6370 [facility] [id number] Glucose [Mass/Vol] 108 mg/dL Abnormal 65-99 [facility] Internal [facility]; [facility] Work Phone: Comment on above: PATIENT NOT FASTINGP ERFORMED BY: SAGRARIO Gomezlin6370 [facility] [place] [id number] Potassium [Moles/Vol] 4.5 mmol/L Normal 3.5-5.2 [facility] prehensive Internal Medicine; [facility] Work Phone: Comment on above: PATIENT NOT FASTINGP ERFORMED BY: SAGRARIO Gomezlin6370 [facility] [place] [id number] Protein [Mass/Vol] 7.4 g/dL Normal 6.0-8.5 [facility] Internal [facility]; [facility] Work Phone: Comment on above: PATIENT NOT FASTINGP ERFORMED BY: SAGRARIO LabConnie Cuevas6[address] RoadDublin [place] [id number] Sodium [Moles/Vol] 125 mmol/L Abnormal 134-144 [facility] Internal [facility]; [facility] Work Phone: Comment on above: PATIENT NOT FASTINGP ERFORMED BY: SAGRARIO [facility] Scqhch0224 Dick RoadDublin [place] [id number] Urea nitrogen [Mass/Vol] 7 mg/dL Normal 6-24 [facility]; [facility] Work Phone: Comment on above: PATIENT NOT FASTINGP ERFORMED BY: SAGRARIO LabConnie GomezXysnhl3296 Dick RoadDublin [place] [id number] Urea nitrogen/Creatinine [Mass ratio] 13 mg/mg Normal 9-20 [facility]; [facility] Work Phone: Comment on above: PATIENT NOT FASTINGP ERFORMED BY: SAGRARIO [facility] Wwdunc8642 [address] RoadDublin [place] [id number] TSH (THYROID STIMULATING HOR NIK) ([id number])Ordered By: Financial Processing Clerk on 07-26-2021 TSH Qn 34.100 {uIU/mL} Abnormal 0.450-4.50 0 [facility]; [facility] Work Phone: Comment on above: PATIENT NOT FASTINGP ERFORMED BY: SAGRARIO [facility] Neqmxe6511 Dick RoadDublin [place] [id number] VITAMIN B12 AND FOLATES (826 07)Ordered By: Financial Processing Clerk on 07-26-2021 Cobalamin (Vitamin B12) [Mass/Vol] 627 pg/mL Normal 232-1245 [facility]; [facility] Work Phone: Comment on above: PATIENT NOT FASTINGP ERFORMED BY: SAGRARIO [facility] Raznkq6657 [address] RoadDublin [place] [id number] Folate [Mass/Vol] 3.1 ng/mL Normal Compreh ensive Internal Medicine; [facility] Work Phone: Comment on above: A serum folate jan ntration of less than 3.1 ng/mL isconsidered to represent clinical deficiency. PATIENT NOT FASTINGP ERFORMED BY: [facility] Xtkxab6470 DickMicrobridge Technologies CanadaCone Health Al[facility] Regional [id number] TSH (THYROID STIMULATING HOR NIK) ([id number])Ordered By: Financial Processing Clerk on 11-28-2020 TSH Qn 18.000 {uIU/mL} Abnormal 0.450-4.50 0 [facility]; [facility] Work Phone: Comment on above: Oct 06 2020; PATIENT NOT FASTINGPERFORMED BY: [facility] [id number] Dick BrazzleboxCone Health Al[facility] Regional [id number] Absolute lymphocyte counton 08-25-2020 Lymphocytes Auto (Unsp spec) [#/Vol] 1.03 10*3/uL 0.83-4.51 [facility] Work Phone: Basophil percentageon 2019 Bilirubin [Mass/Vol] 0.40 mg/dL 0.20-1.00 [facility] Work Phone: Comment on above: For patients on eltr ombopag therapy, use of Dimension [place] TBIL is not recommended. Chloride [Moles/Vol] 91 mmol/L 98-107 [facility] Work Phone: Eosinophils/100 WBC (Bld) 1.5 % 0-5 [facility] Work Phone: Glucose [Mass/Vol] 94 mg/dL 74-106 [facility] Work Phone: Comment on above: Please note revised GLUCOSE reference range effective 2017. Neutrophils (Bld) [#/Vol] 3.5 10*3/uL 2.0-7.7 [facility] Work Phone: Potassium [Moles/Vol] 4.0 mmol/L 3.5-5.1 [facility] Work Phone: Protein [Mass/Vol] 7.7 g/dL 6.4-8.2 [facility] Health Work Phone: Sodium [Moles/Vol] 127 mmol/L 136-145 [facility] Work Phone: WBC (Bld) [#/Vol] 5.4 10*3/uL 4.4-11.0 [facility] Work Phone: Blood erythrocytes count (nu mber/volume)on 08-25-2020 RBC (Bld) [#/Vol] 3.99 10*6/uL 4.6-6.2 [facility]: Blood hemoglobin measurement (mass/volume)on 08-25-2020 Hemoglobin (Bld) [Mass/Vol] 13.1 g/dL 13.0-16.5 [facility] Work Phone: Blood lymphocytes/100 leukoc yteson 08-25-2020 Lymphocytes/100 WBC (Bld) 19.1 % 19-41 [facility] Work Phone: Blood monocytes/100 leukocyt eson 08-25-2020 Monocytes/100 WBC (Bld) 13.9 % 0-10 [facility] Work Phone: Blood platelet mean volumeon 08-25-2020 Platelet mean volume (Bld) [Entitic vol] 8.6 fL 6.2-12.0 [facility] Work Phone: Determination of erythrocyte mean corpuscular volume (MCV)on 08-25-2020 MCV (RBC) [Entitic vol] 92.7 fL 80-94 [facility] Work Phone: Hematocrit Auto (Bld) [Volum e fraction]on 08-25-2020 Hematocrit (Bld) [Volume fraction] 37.0 % 40-54 [facility] Work Phone: Laboratory - Chemistry and C hemistry - challengeon 08-25-2020 ALP [Catalytic activity/Vol] 112 U/L 45-117 [facility] Work Phone: ALT [Catalytic activity/Vol] 64 U/L 16-61 [facility] Work Phone: CO2 [Moles/Vol] 31.0 mmol/L 21.0-32.0 [facility] Work Phone: Globulin (S) [Mass/Vol] 4.0 g/dL 2.2-4.2 [facility] Work Phone: Urea nitrogen/Creatinine [Mass ratio] 24.4 mg/mg 10-20 [facility] Work Phone: Laboratory - Hematology and Cell countson 08-25-2020 Basophils/100 WBC (Unsp spec) 0.7 % 0-1 [facility] Work Phone: Erythrocyte distribution width (RBC) [Entitic vol] 44.8 fL 35.1-43.9 [facility] Work Phone: Erythrocyte distribution width (RBC) [Ratio] 13.1 % 11.6-14.6 [facility] Work Phone: Immature granulocytes/100 WBC (Bld) 0.600 % 0.0-0.9 [facility] Work Phone: Comment on above: IG% - Immature Granu locytes (promyelocytes, myelocytes and metamyelocytes) > 1% indicates that a LEFT SHIFT is Present. MCH (RBC) [Entitic mass] 32.8 pg 27.0-32.0 [facility] Work Phone: Neutrophils/100 WBC (Bld) 64.2 % 47-70 [facility] Work Phone: Nucleated RBC/100 WBC (Bld) [Ratio] 0 % 0-5 [facility] Work Phone: MCHC Auto (RBC) [Mass/Vol]on 08-25-2020 MCHC (RBC) [Mass/Vol] 35.4 g/dL 32-36 [facility] Work Phone: No Panel Informationon 08-25 Estimated Creatinine Clearance Calc 146.22 ml/min [facility] Work Phone: Estimated GFR (MDRD) Amer 247 mL/min >60 [facility] Work Phone: Comment on above: GFR Calc Estimated GFR (MDRD) Non-Af Amer 204 mL/min >60 [facility] Work Phone: Comment on above: Non- GFR Calc Thyroid Stimulating Hormone (TSH) 11.50 uIU/mL 0.358-3.74 [facility] Work Phone: Platelets bldon 08-25-2020 Platelets (Bld) [#/Vol] 272 10*3/uL 150-450 [facility] Work Phone: Serum or plasma albumin yesi urement (mass/volume)on 08-25-2020 Albumin [Mass/Vol] 3.7 g/dL 3.2-5.0 [facility] Work Phone: Serum or plasma albumin/glob ulin mass ratioon 08-25-2020 Albumin/Globulin [Mass ratio] 0.9 {ratio} 0.9-2.4 [facility] Work Phone: Serum or plasma calcium yesi urement (mass/volume)on 08-25-2020 Calcium [Mass/Vol] 9.2 mg/dL 8.5-10.1 [facility] Work Phone: Serum or plasma creatinine m easurement (mass/volume)on 08-25-2020 Creatinine [Mass/Vol] 0.45 mg/dL 0.70-1.30 [facility] Work Phone: Comment on above: The validity of the calculated GFR & GFRAA in patients over 70 years has not been determined. Clinical correlation is essential. Serum or plasma urea nitroge n measurement (mass/volume)on 08-25-2020 Urea nitrogen [Mass/Vol] 11 mg/dL 7-18 [facility] Work Phone: Thin prep Papanicolaou smear with manual screeningon 08-25-2020 Thin prep Papanicolaou smear with manual screening 67 U/L 15-37 [facility] Work Phone: Thin prep Papanicolaou smear with manual screening 5 5-15 [facility] Work Phone: TSH (THYROID STIMULATING HOR NIK) ([id number])Ordered By: Financial Processing Clerk on 08-15-2020 TSH Qn 20.900 {uIU/mL} Abnormal 0.450-4.50 0 [facility]; [facility] Work Phone: Comment on above: Aug 10; PATIENT NOT FASTINGPERFORMED BY: SAGRRAIO [facility] [facility] [id number] TSH (THYROID STIMULATING HOR NIK) ([id number])Ordered By: Financial Processing Clerk on 06-23-2020 TSH Qn 42.700 {uIU/mL} Abnormal 0.450-4.50 0 [facility] Work Phone: Comment on above: PATIENT NOT FASTINGP ERFORMED BY: SAGRARIO [facility] [facility] [id number] Anti TPO Antibody ([id number])Ord ered By: Financial Processing Clerk on 05-16-2020 TPO Ab Qn 17 {IU/mL} Normal 0-34 [facility] Work Phone: Comment on above: PATIENT NOT FASTINGP ERFORMED BY: SAGRARIO [facility] [facility] [id number] TPO Ab Qn 17 [IU]/mL Normal 0-34 [facility]; [facility] Internal Medicine Work Phone: Comment on above: PATIENT NOT FASTINGP ERFORMED BY: [facility] [facility] [id number] T3, FREE (TRIDOTHYRONINE) ([id number])Ordered By: Financial Processing Clerk on 05-16-2020 Free T3 [Mass/Vol] 2.6 pg/mL Normal 2.0-4.4 [facility] Work Phone: Comment on above: to be done 6weeks ( end april); PATIENT NOT FASTINGPERFORMED BY: [facility] [facility] [id number] T4, FREE (THYROXINE) ([id number]) Ordered By: Financial Processing Clerk on 05-16-2020 Free T4 [Mass/Vol] 1.13 ng/dL Normal 0.82-1.77 [facility] Internal [facility] Work Phone: Comment on above: to be done 6weeks ( end april ); PATIENT NOT FASTINGPERFORMED BY: [facility] Vlpnpm7608 Dick BrazzleboxCone Health [facility] [id number] TSH ([id number])Ordered By: Brooke carpio Bridge Crew Member on 05-16-2020 TSH Qn 27.800 {uIU/mL} Abnormal 0.450-4.50 0 [facility] Work Phone: Comment on above: to be done 6 weeks ( end april); PATIENT NOT FASTINGPERFORMED BY: [facility] Ovuuyl[address] BrazzleboxC[facility] [id number] Iron measurement (mass/mass) on 05-19-2019 Iron (Unsp spec) [Mass/Mass] 56 ug/dL 65-175 [facility] Work Phone: Laboratory - Chemistry and C hemistry - challengeon 05-19-2019 Cobalamin (Vitamin B12) [Mass/Vol] 697 pg/mL 211-911 [facility] Free T4 [Mass/Vol] 1.04 ng/dL 0.76-1.46 [facility] No Panel Informationon 05-19 Folate 23.40 ng/mL 3.1-55.4 [facility] Total Iron Binding Capacity 325 ug/dL 250-450 [facility] Work Phone: Serum or plasma ferritin davey surement (mass/volume)on 05-19-2019 Ferritin [Mass/Vol] 559 ng/mL 26-388 [facility] Work Phone: Serum or plasma iron saturat ion measurement (mass fraction)on 05-19-2019 Iron saturation [Mass fraction] 17.2 % 15.0-55.0 [facility] Work Phone: Basophil percentageon 2018 Basophil percentage 4.4 mg/dL 2.5-4.9 [facility] Work Phone: Laboratory - Chemistry and C hemistry - challengeon 04-28-2019 Magnesium [Mass/Vol] 1.8 mg/dL 1.6-2.6 [facility] Work Phone: Absolute reticulocyte counto n 04-13-2019 Reticulocytes (Bld) [#/Vol] 0.00 10*3/uL 0-5 [facility] Laboratory - Hematology and Cell countson 04-06-2019 Erythrocyte distribution width (RBC) [Ratio] 13.2 % 11.6-14.6 [facility] No Panel Informationon 04-06 Red Cell Distribution Width Diff 42.8 fl 35.1-43.9 [facility] Review by pathologiston 03-23 Pathologist review Allen (Unsp spec) [Interp] Reviewed [facility] Comment on above: Previous reported re sult: January craig Edited by: RGOARSENIO on 04/07/19:1024Leukopenia and neutropenia.Normocytic anemia.Clinical correlation necessary.Laurent Cope M.D. 04/07/19 AMENDED REPORT 04/07/19 1024 PATH REV previously reported as: January craig Total cell counton 9 Cells counted Molgen (Bld/Tiss) [#] Not Reportable [facility] - Microbiology an d Antimicrobial susceptibilityon 04-05-2019 Bacteria identified Cx Nom (Bld) No growth in 5 days. [facility] Bacteria identified Cx Nom (Bld) No growth in 5 days. [facility] - Microbiology an d Antimicrobial susceptibilityon 03-31-2019 Bacteria identified Cx Nom (Bld) No growth in 5 days. [facility] Work Phone: No Panel Informationon 03-30 Differential Comment COMMENT [facility] Comment on above: SLIDE SCANNED - LYMP KATHERINE. AMMONIA ([id number])on 01-02-2019 Ammonia mass conc (P) 20 ug/dL Abnormal 27-102 [facility] Work Phone: Comment on above: PATIENT NOT FASTINGP ERFORMED BY: SAGRARIO [facility] Qxlxtu6069 [facility]oundFrank[facility] [id number] Metabolic Panel, Comprehensi ve ([id number])on 01-02-2019 Albumin mass conc 4.4 g/dL Normal 3.5-5.5 [facility] Work Phone: Comment on above: PATIENT NOT FASTINGP ERFORMED BY: SAGRARIO [facility] DialecticaCaroMont [facility] [id number] Albumin/Globulin mass ratio 1.6 {ratio} Normal 1.2-2.2 [facility] Work Phone: Comment on above: PATIENT NOT FASTINGP ERFORMED BY: CB [facility] Hzlfms4661 Dick RoadDublin [place] [id number] ALP enzyme act/vol 60 [iU]/L Normal 39-117 Compre [facility] Internal Medicine Work Phone: Comment on above: PATIENT NOT FASTINGP ERFORMED BY: CB [facility] Dyxxks0629 Dick RoadDublin [place] [id number] ALT enzyme act/vol 21 [iU]/L Normal 0-44 [facility] Work Phone: Comment on above: PATIENT NOT FASTINGP ERFORMED BY: CB [facility] Olusij2569 Dick RoadDublin [place] [id number] AST enzyme act/vol 21 [iU]/L Normal 0-40 Compre [facility] Internal Medicine Work Phone: Comment on above: PATIENT NOT FASTINGP ERFORMED BY: CB [facility] Tqbhai2086 Dick RoadDublin [place] [id number] Bilirubin mass conc 0.5 mg/dL Normal 0.0-1.2 Compr [facility] Internal Medicine Work Phone: Comment on above: PATIENT NOT FASTINGP ERFORMED BY: CB [facility] Ckosgd3787 Dick RoadDublin [place] [id number] Calcium mass conc 9.0 mg/dL Normal 8.7-10.2 Compre[facility] ens[facility] Work Phone: Comment on above: PATIENT NOT FASTINGP ERFORMED BY: CB [facility] Xenxdk7899 Dick RoadDublin [place] [id number] Chloride molar conc 92 mmol/L Abnormal 96-106 Compr ens[facility] Work Phone: Comment on above: PATIENT NOT FASTINGP ERFORMED BY: CB [facility] Ohztlp0010 [address] RoadDublin [place] [id number] CO2 molar conc 22 mmol/L Normal 20-29 Comprehens sruthi Internal [facility] Work Phone: Comment on above: PATIENT NOT FASTINGP ERFORMED BY: CB [facility] Lipvso6623 Dick RoadDublin [place] [id number] Creatinine mass conc 0.56 mg/dL Abnormal 0.76-1.27 Comp rehensive [facility] Work Phone: Comment on above: PATIENT NOT FASTINGP ERFORMED BY: CB [facility] Hqdbct4217 Dick RoadDublin [place] [id number] GFR/1.73 sq M predicted among blacks CKD-EPI vol rate/area (S/P/Bld) 134 mL/min/1.73 Normal Comprehe nsive [facility] Work Phone: Comment on above: PATIENT NOT FASTINGP ERFORMED BY: CB [facility] Napwvz0287 Dick RoadDublin [place] [id number] GFR/1.73 sq M predicted among non-blacks CKD-EPI vol rate/area (S/P/Bld) 116 mL/min/1.73 Normal [facility] Work Phone: Comment on above: PATIENT NOT FASTINGP ERFORMED BY: CB [facility] Koeggq1521 Dick RoadDublin [place] [id number] Globulin mass conc (S) 2.8 g/dL Normal 1.5-4.5 Co mprehensive [facility] Work Phone: Comment on above: PATIENT NOT FASTINGP ERFORMED BY: CB [facility] Frmcmz0622 [address] RoadDublin [place] [id number] Glucose mass conc 101 mg/dL Abnormal 65-99 Compreh ens[facility] Work Phone: Comment on above: PATIENT NOT FASTINGP ERFORMED BY: CB [facility] Sikund3424 [address] RoadDublin [place] [id number] Potassium molar conc 4.6 mmol/L Normal 3.5-5.2 Comp rehens[facility] Work Phone: Comment on above: PATIENT NOT FASTINGP ERFORMED BY: CB [facility] Lhrjwo8831 Dick RoadDublin [place] [id number] Protein mass conc 7.2 g/dL Normal 6.0-8.5 Compreh ensive [facility] Work Phone: Comment on above: PATIENT NOT FASTINGP ERFORMED BY: SAGRARIO [facility] Lnazqj1056 Dick RoadDublin [place] [id number] Sodium molar conc 129 mmol/L Abnormal 134-144 Compreh ensive [facility] Work Phone: Comment on above: PATIENT NOT FASTINGP ERFORMED BY: CB [facility] Yntwvg1165 [address] RoadDublin [place] [id number] Urea nitrogen mass conc 6 mg/dL Normal 6-24 C omprehens[facility] Work Phone: Comment on above: PATIENT NOT FASTINGP ERFORMED BY: CB [facility] Jzdwes5495 [address] RoadD[address] [place] [id number] Urea nitrogen/Creatinine mass ratio 11 mg/mg Normal 9-20 [facility] Work Phone: Comment on above: PATIENT NOT FASTINGP ERFORMED BY: CB [facility] Ofzlph8235 [address] RoadDublin [place] [id number] Metabolic Panel, Comprehensi ve ([id number])Ordered By: Financial Processing Clerk on 01-02-2019 ALP [Catalytic activity/Vol] 60 U/L Normal 39-117 [facility]; [facility] Work Phone: Comment on above: PATIENT NOT FASTINGP ERFORMED BY: CB [facility] Snurnr0859 [address] RoadDublin [place] [id number] ALT [Catalytic activity/Vol] 21 U/L Normal 0-44 [facility]; [facility] Work Phone: Comment on above: PATIENT NOT FASTINGP ERFORMED BY: CB [facility] Qbucue7753 [address] RoadDublin [place] [id number] AST [Catalytic activity/Vol] 21 U/L Normal 0-40 [facility]; [facility] Work Phone: Comment on above: PATIENT NOT FASTINGP ERFORMED BY: CB [facility] Ulaocw8153 [address] RoadDublin [place] [id number] VITAMIN B12 AND FOLATES (826 07)on 01-02-2019 Cobalamin (Vitamin B12) mass conc 348 pg/mL Normal 232-1245 [facility] Work Phone: Comment on above: PATIENT NOT FASTINGP ERFORMED BY: [facility] Jntsdm9875 [facility] [id number] Folate mass conc 7.9 ng/mL Normal Comprehe nsive [facility] Work Phone: Comment on above: A serum folate jan ntration of less than 3.1 ng/mL isconsidered to represent clinical deficiency. PATIENT NOT FASTINGP ERFORMED BY: [facility] Mmtqqd6217 [facility] [id number] IMMUNOHISTOCHEMISTRYon 12-22 IMMUNOHISTOCHEMISTRY See Note Normal Comp rehensive [facility] Work Phone: Comment on above: Patient: DEANNE JAMA : 1960 (58/M) Acct Num: [id number] Phys: Paige QUESADA,Shane Unit Num: [id number] Loc: LABSPEC Specimen: [id number] Received: 12/23/181136 Spec Type: IMMUNO TISSUES 1 TISSUES: A. Neck, NOS SPECIMEN INFORMATION: Tissue Source: A - Left neck mass fine needle aspiration Clinical Info: Left neck mass Specimen Number: [id number] CPT code: 33979, 10105 x11 METHODOLOGY: Deparaffinized sections of prefer/formalin-fixed tissue or PAP/DQ stained slides are incubated with monoclonal/polyclonal antibodies/oligonucleotide probes. Localization is made via biotin free immunoperoxidase method. Appropriate controls are performed and reacted as expected. Results on target cell population are indicated in the following table: RESULTS: ANTIBODY / CLONE RESULT Block A AE1-3 (AE1/AE3/PCK26) positive CK7 (OV-TL12/30) negative CK8 (55zwnaU30) positive, weak CK20 (KS20.8) negative TTF-1 (8G7G3/1) negative Napsin A (Rabbit Polyclonal) negative HepPar (OCh1E5) negative RCC (PN-15) negative PSAP (PASE/4LJ) negative CK5-6 (D5 AND 1684) positive P16 (E6H4) negative P40 (BC28) positive, focal These tests were developed and their performance characteristics determined by [facility]. They may not have been cleared or approved by the U.S. Food and Drug Administration. The FDA has determined that such clearance or approval is not necessary. INTERPRETATION: A. 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 SJ:evy 12/24/18 PHYSICIAN AND INSTITUTION [facility] [address] [place], [place] [address] Signed Laurent Cope MD 12/24/18 [facility] spital Zhfhqsfsos1769 [facility] [place], [address] Patient: DEANNE JAMA : 1960 (58/M) Acct Num: [id number] Phys: Paige QUESADA,Shane Unit Num: [id number] Loc: LABSPEC Specimen: [id number] Received: 12/22/18 - 1254 Spec Type: Fluid TISSUES 1 TISSUES: A. Neck, NOS B. Neck, NOS COMMENT A. Immunohistochemistry ([id number]) supports the above diagnosis. Case has been reviewed in consultation with Dr. Del Real who concurs with the above diagnosis. IDC:AM CYTOLOGY GROSS A - Received is 2 ml of cloudy red fluid labeled with the patient's name and DOBand designated per the requisition as "left neck mass." Submitted for cytology preparation including cell block. B - Received are 12 smears labeled with the patient's name and designated per the requisition as "left neck mass." Submitted for staining. / 12/22/18 TC:0 CPT: 53819, 23644, 42699 CYTOLOGY STUDY Slides are reviewed. DIAGNOSIS CYTOLOGY [...] [facility] Work Phone: Comment on above: [facility] [address] [place], [address] Basophils/100 WBC (Bld) 0.4 % Normal 0-1 C omprehensive [facility] Work Phone: Comment on above: [facility] [address] [place], [place], [phone] Eosinophils/100 WBC (Bld) 0.4 % Normal 0-5 [facility] Work Phone: Comment on above: [facility] [address] [place], [place], [phone] Erythrocyte distribution width Ratio (RBC) 13.9 % Normal 11.6-14.6 [facility] Work Phone: Comment on above: [facility] [address] [place], [address] Hematocrit Volume Fraction (Bld) 38.8 % Abnormal 40-54 [facility] Work Phone: Comment on above: [facility] [address] [place], [place], [phone] Hemoglobin mass conc (Bld) 13.7 g/dL Normal 13.0-16.5 [facility] Work Phone: Comment on above: [facility] [address] [place], [place], [phone] IM GRAN % 0.100 % Normal 0.0-0.9 [facility] Work Phone: Comment on above: IG% - Immature Granu locytes (promyelocytes, myelocytes andmetamyelocytes) > 1% indicates that a LEFT SHIFT is Present. [facility] [address] [place], [address] Lymphocytes #/vol (Bld) 2.18 {X10_3/ul} Normal 0.83-4. 51 [facility] Work Phone: Comment on above: [facility] [address] [place], [address] Lymphocytes/100 WBC (Bld) 25.9 % Normal 19-41 [facility] Work Phone: Comment on above: [facility] [address] [place], [address] MCH Entitic mass (RBC) 32.2 pg Abnormal 27.0-32.0 [facility] systemehensive [facility] Work Phone: Comment on above: [facility] [address] [place], [address] MCHC mass conc (RBC) 35.3 {g/gl} Normal 32-36 [facility] prehensive Internal Medicine Work Phone: Comment on above: [facility] [address] [place], [address] MCV Entitic volume (RBC) 91.3 fL Normal 80-94 [facility] Work Phone: Comment on above: [facility] [address] [place], [address] Monocytes/100 WBC (Bld) 13.7 % Abnormal 0-10 C [facility]rehens[facility] Work Phone: Comment on above: [facility] [address] [place], [address] Neutrophils/100 WBC (Bld) 59.5 % Normal 47-70 [facility] Work Phone: Comment on above: [facility] [address] [place], [place], [phone] Platelet mean volume Entitic volume (Bld) 9.7 fL Normal 6.2-12.0 Comprehensi ve Internal Medicine Work Phone: Comment on above: [facility] [address] [place], [address] Platelets #/vol (Bld) 337 10*3/uL Normal 150-450 Co mprehensive [facility] Work Phone: Comment on above: [facility] [address] [place], [phone] RBC #/vol (Bld) 4.25 {M/mm3} Abnormal 4.6-6.2 Compreh ensive [facility] Work Phone: Comment on above: [facility] [address] [place], [address] RDW SD 45.5 fL Abnormal 35.1-43.9 [facility] Work Phone: Comment on above: [facility] [address] [place], [address] WBC #/vol (Bld) 8.4 10*3/uL Normal 4.4-11.0 Comprehe nsive [facility] Medicine Work Phone: Comment on above: [facility] [address] [place], [place], [phone] Comprehensive Metabolic Prof ilon 12-15-2018 Comprehensive metabolic 2000 panel 6 1 Normal 5-15 [facility] Work Phone: Comment on above: [facility] [address] [place], [place], [phone] Comprehensive metabolic 2000 panel 102 mg/dL Normal 74-106 [facility] Work Phone: Comment on above: Fasting Glucose resu lt from 100 to 125 mg/dLsuggests IMPAIRED HOMEOSTASIS per A.D.A. criteria.Please note revised GLUCOSE reference range bhyhgapwf87/02/2018. [facility] [address] [place], [address] Comprehensive metabolic 2000 panel 7 mg/dL Normal 7-18 [facility] Work Phone: Comment on above: [facility] [address] [place], [place], [phone] Comprehensive metabolic 2000 panel 0.57 mg/dL Abnormal 0.70-1.30 [facility] Work Phone: Comment on above: The validity of the calculated GFR AND GFRAA in patients over70 years has not been determined. Clinical correlation isessential. [facility] [address] [place], [address] Comprehensive metabolic 2000 panel 158 mL/min Normal [facility] Work Phone: Comment on above: Non- GFR Calc [facility] [address] [place], [address] Comprehensive metabolic 2000 panel 191 mL/min Normal [facility] Work Phone: Comment on above: GFR Calc [facility] [address] [place], [place], [address] Comprehensive metabolic 2000 panel 12.3 {RATIO} Normal 10-20 [facility] Work Phone: Comment on above: [facility] [address] [place], [address] Comprehensive metabolic 2000 panel 7.2 g/dL Normal 6.4-8.2 [facility] Work Phone: Comment on above: [facility] [address] [place], [address] Comprehensive metabolic 2000 panel 3.8 g/dL Normal 3.2-5.0 [facility] Work Phone: Comment on above: [facility] [address] [place], [place], [phone] Comprehensive metabolic 2000 panel 3.4 g/dL Normal 2.2-4.2 [facility] Work Phone: Comment on above: [facility] [address] [place], [address] Comprehensive metabolic 2000 panel 1.1 {RATIO} Normal 0.9-2.4 [facility] Work Phone: Comment on above: [facility] [id number] [place], [place], [address] Comprehensive metabolic 2000 panel 8.5 mg/dL Normal 8.5-10.1 [facility] Work Phone: Comment on above: [facility] [id number] [place], [place], [id number] Comprehensive metabolic 2000 panel 25 U/L Normal 15-37 [facility] Work Phone: Comment on above: [facility] [id number] [place], [address] Comprehensive metabolic 2000 panel 59 U/L Normal 45-117 [facility] Work Phone: Comment on above: [facility] [id number] [place], [place], [address] Comprehensive metabolic 2000 panel 31 U/L Normal 16-61 [facility] Work Phone: Comment on above: [facility] [id number] [place], [address] Comprehensive metabolic 2000 panel 0.50 mg/dL Normal 0.20-1.00 [facility] Work Phone: Comment on above: [facility] [id number] [place], [address] Comprehensive metabolic 2000 panel 132 mmol/L Abnormal 136-145 [facility] Work Phone: Comment on above: [facility] [id number] [place], [place], [address] Comprehensive metabolic 2000 panel 4.1 mmol/L Normal 3.5-5.1 [facility] Work Phone: Comment on above: [facility] [id number] [place], [address] Comprehensive metabolic 2000 panel 97 mmol/L Abnormal 98-107 [facility] Work Phone: Comment on above: [facility] [id number] [place], [address] Comprehensive metabolic 2000 panel 29.0 mmol/L Normal 21.0-32.0 [facility] Work Phone: Comment on above: [facility] [id number] [place], [place], [address] Bacteria identified Anaer cx Nom (Unsp spec) Anaerobic Culture Anaerobic cocci [facility] Work Phone: Anaerobic microbial culture No anaerobic bacteria isolated. [facility] Work Phone: Bacteria identified Cx Nom ( Wound) Wound Culture Proteus vulgaris [facility] Work Phone: Wound Culture Pseudomonas aeroginosa [facility] Work Phone: Wound Culture Meth. resistant Stap h. aureus [facility] Work Phone: Wound Culture Positive [facility] Work Phone: Wound Culture Streptococcus agalactiae (B) [facility] Work Phone: Gram stain for investigation of transfusion reaction Microscopic observation Gram stain Nom (Unsp spec) [facility] Work Phone: Laboratory - Microbiology an d Antimicrobial susceptibility Bacteria identified Cx Nom (Bld) No growth in 5 days. [facility] Work Phone: Vital Signs Date Time Vital Sign Value Performing Clinician Facility 03-01-2025 08:43-0400 Body height 167.6 cm Rachel Brooks MD Work Phone: [facility] 03-01-2025 08:43-0400 Body mass index (BMI) [Ratio] 18.72 kg/m2 Rachel Brooks MD Work Phone: [facility] 03-01-2025 08:43-0400 Body weight 52.62 kg Rachel Brooks MD Work Phone: [facility] 02-02-2025 10:41-0400 Body height 165.1 cm Sadie Jack MACHINE ROOM ENGINEER-C Work Phone: [facility] 02-02-2025 10:41-0400 Body weight 54.65 kg Sadie Jack MACHINE ROOM ENGINEER-C Work Phone: [facility] 02-02-2025 09:30-0400 Body height 165.1 cm Sadie Jack MACHINE ROOM ENGINEER-C Work Phone: [facility] 02-02-2025 09:30-0400 Body mass index (BMI) [Ratio] 20 kg/m2 Sadie Jack MACHINE ROOM ENGINEER-C Work Phone: [facility] 02-02-2025 09:30-0400 Body temperature 98.4 [degF] Sadie Jack MACHINE ROOM ENGINEER-C Work Phone: [facility] 02-02-2025 09:30-0400 Body weight 54.65 kg Sadie Jack MACHINE ROOM ENGINEER-C Work Phone: [facility] 02-02-2025 09:30-0400 Diastolic blood pressure 80 mm[Hg] Sadie Jack MACHINE ROOM ENGINEER-C Work Phone: [facility] 02-02-2025 09:30-0400 Heart rate 70 /min Sadie Jack MACHINE ROOM ENGINEER-C Work Phone: [facility] 02-02-2025 09:30-0400 Respiratory rate 18 /min Sadie Jack MACHINE ROOM ENGINEER-C Work Phone: [facility] 02-02-2025 09:30-0400 SaO2% (BldA) [Mass fraction] 100 % Sadie Jack MACHINE ROOM ENGINEER-C Work Phone: [facility] 02-02-2025 09:30-0400 Systolic blood pressure 148 mm[Hg] Sadie Jack MACHINE ROOM ENGINEER-C Work Phone: [facility] 01-05-2025 11:22-0400 Body weight 55.5 kg Sadie Jack MACHINE ROOM ENGINEER-C Work Phone: [facility] 01-05-2025 11:08-0400 Body mass index (BMI) [Ratio] 20.1 kg/m2 Sadie Jack MACHINE ROOM ENGINEER-C Work Phone: [facility] 01-05-2025 11:08-0400 Body temperature 99.7 [degF] Sadie Jack MACHINE ROOM ENGINEER-C Work Phone: [facility] 01-05-2025 11:08-0400 Body weight 54.88 kg Sadie Jack MACHINE ROOM ENGINEER-C Work Phone: [facility] 01-05-2025 11:08-0400 Diastolic blood pressure 71 mm[Hg] Sadie Jack MACHINE ROOM ENGINEER-C Work Phone: [facility] 01-05-2025 11:08-0400 Heart rate 91 /min Sadie Jack MACHINE ROOM ENGINEER-C Work Phone: [facility] 01-05-2025 11:08-0400 Respiratory rate 16 /min Sadie Jack MACHINE ROOM ENGINEER-C Work Phone: [facility] 01-05-2025 11:08-0400 SaO2% (BldA) [Mass fraction] 97 % Sadie Jack MACHINE ROOM ENGINEER-C Work Phone: [facility] 01-05-2025 11:08-0400 Systolic blood pressure 123 mm[Hg] Sadie Santiago MACHINE ROOM ENGINEER-C Work Phone: [facility] 10-21-2024 07:50-0500 Body temperature 97.1 [degF] Dr. Quincy Simpson MD Work Phone: [facility] 10-21-2024 07:50-0500 Diastolic blood pressure 62 mm[Hg] Dr. Quincy Simpson MD Work Phone: [facility] 10-21-2024 07:50-0500 Heart rate 58 /min Dr. Quincy Simpson MD Work Phone: [facility] 10-21-2024 07:50-0500 Respiratory rate 16 /min Dr. Quincy Simpson MD Work Phone: [facility] 10-21-2024 07:50-0500 SaO2% (BldA) [Mass fraction] 98 % Dr. Quincy Simpson MD Work Phone: 4(725)195-524761 [place] [address] 10-21-2024 07:50-0500 Systolic blood pressure 118 mm[Hg] Dr. Quincy Simpson MD Work Phone: 7(231)268-398885 [place] [address] 10-21-2024 05:51-0500 Body height 165.[address] Quincy Simpson MD Work Phone: 0(650)265-313485 [place] [address] 10-21-2024 05:51-0500 Body mass index (BMI) [Ratio] 19.8 kg/m2 Dr. Quincy Simpson MD Work Phone: 3(941)871-411961 [place] [address] 10-21-2024 05:51-0500 Body weight [address] Quincy Simpson MD Work Phone: 8(114)232-198985 [place] [address] 09-28-2024 12:06-0500 Body mass index (BMI) [Ratio] 19.8 kg/m2 Dr. Quincy Simpson MD Work Phone: 0(953)652-325061 [place] [address] 09-28-2024 12:06-0500 Body temperature 98.9 [degF] Dr. Quincy Simpson MD Work Phone: 4(528)052-385061 [place] [address] 09-28-2024 12:06-0500 Body weight 55.[address] Quincy Simpson MD Work Phone: 8(875)476-201085 [place] [address] 09-28-2024 12:06-0500 Diastolic blood pressure 72 mm[Hg] Dr. Quincy Simpson MD Work Phone: 3(196)702-158461 [place] [address] 09-28-2024 12:06-0500 Heart rate 85 /min Dr. Quincy Simpson MD Work Phone: [facility] 09-28-2024 12:06-0500 Respiratory rate 16 /min Dr. Quincy Simpson MD Work Phone: [facility] 09-28-2024 12:06-0500 SaO2% (BldA) [Mass fraction] 98 % Dr. Quincy Simpson MD Work Phone: [facility] 09-28-2024 12:06-0500 Systolic blood pressure 124 mm[Hg] Dr. Quincy Simpson MD Work Phone: [facility] 09-15-2024 10:15-0500 Diastolic blood pressure 58 mm[Hg] Dr. Quincy Simpson MD Work Phone: 9(974)332-545461 [place] [address] 09-15-2024 10:15-0500 Heart rate 68 /min Dr. Quincy Simpson MD Work Phone: 9(380)490-975061 [place] [address] 09-15-2024 10:15-0500 Respiratory rate 23 /min Dr. Quincy Simpson MD Work Phone: [facility] 09-15-2024 10:15-0500 Systolic blood pressure 124 mm[Hg] Dr. Quincy Simpson MD Work Phone: [facility] 09-15-2024 09:24-0500 Body mass index (BMI) [Ratio] 19.8 kg/m2 Dr. Quincy Simpson MD Work Phone: [facility] 09-15-2024 09:24-0500 Body temperature 98.5 [degF] Dr. Quincy Simpson MD Work Phone: [facility] 09-15-2024 09:24-0500 Body weight 56.[address] Quincy Simpson MD Work Phone: [facility] 09-15-2024 09:24-0500 SaO2% (BldA) [Mass fraction] 97 % Dr. Quincy Simpson MD Work Phone: [facility] 09-07-2024 14:03-0500 Body weight 55.[address] Quincy Simpson MD Work Phone: [facility] 09-07-2024 13:44-0500 Body mass index (BMI) [Ratio] 20.3 kg/m2 Dr. Quincy Simpson MD Work Phone: [facility] 09-07-2024 13:44-0500 Body temperature 97.5 [degF] Dr. Quincy Simpson MD Work Phone: [facility] 09-07-2024 13:44-0500 Body weight 55.[address] Quincy Simpson MD Work Phone: [facility] 09-07-2024 13:44-0500 Diastolic blood pressure 74 mm[Hg] Dr. Quincy Simpson MD Work Phone: [facility] 09-07-2024 13:44-0500 Heart rate 78 /min Dr. Quincy Simpson MD Work Phone: [facility] 09-07-2024 13:44-0500 Respiratory rate 16 /min Dr. Quincy Simpson MD Work Phone: [facility] 09-07-2024 13:44-0500 SaO2% (BldA) [Mass fraction] 97 % Dr. Quincy Simpson MD Work Phone: [facility] 09-07-2024 13:44-0500 Systolic blood pressure 146 mm[Hg] Dr. Quincy Simpson MD Work Phone: [facility] 08-31-2024 09:04-0500 Body mass index (BMI) [Ratio] 20.27 kg/m2 Rachel Brooks MD Work Phone: [facility] 08-31-2024 09:04-0500 Body weight 56.97 kg Rachel Brooks MD Work Phone: [facility] 08-31-2024 09:04-0500 Diastolic blood pressure 75 mm[Hg] Rachel Brooks MD Work Phone: [facility] 08-31-2024 09:04-0500 Heart rate 86 /min Rachel Brooks MD Work Phone: [facility] 08-31-2024 09:04-0500 Systolic blood pressure 151 mm[Hg] Rachel Brooks MD Work Phone: [facility] 04-13-2024 13:33-0400 Body height 167.6 cm Rachel Brooks MD Work Phone: [facility] 04-13-2024 13:33-0400 Body mass index (BMI) [Ratio] 20.98 kg/m2 Rachel Brooks MD Work Phone: [facility] 04-13-2024 13:33-0400 Body weight 58.97 kg Rachel Brooks MD Work Phone: [facility] 09-03-2023 14:50-0500 Body temperature 97.3 [degF] MACHINE ROOM ENGINEER-C Kya Ciesa MACHINE ROOM ENGINEER Work Phone: [facility] 09-03-2023 14:50-0500 Diastolic blood pressure 66 mm[Hg] MACHINE ROOM ENGINEER-C Kya Ciesa MACHINE ROOM ENGINEER Work Phone: [facility] 09-03-2023 14:50-0500 Heart rate 57 /min MACHINE ROOM ENGINEER-C Kya Ciesa MACHINE ROOM ENGINEER Work Phone: [facility] 09-03-2023 14:50-0500 Respiratory rate 16 /min MACHINE ROOM ENGINEER-C Kya Ciesa MACHINE ROOM ENGINEER Work Phone: [facility] 09-03-2023 14:50-0500 SaO2% (BldA) [Mass fraction] 100 % MACHINE ROOM ENGINEER-C Kya Ciesa MACHINE ROOM ENGINEER Work Phone: [facility] 09-03-2023 14:50-0500 Systolic blood pressure 105 mm[Hg] MACHINE ROOM ENGINEER-C Kya Ciesa MACHINE ROOM ENGINEER Work Phone: [facility] 09-03-2023 13:18-0500 Body height 165.1 cm MACHINE ROOM ENGINEER-C Kya Ciesa MACHINE ROOM ENGINEER Work Phone: [facility] 09-03-2023 13:18-0500 Body mass index (BMI) [Ratio] 20.9 kg/m2 MACHINE ROOM ENGINEER-C Kya Posadasa MACHINE ROOM ENGINEER Work Phone: [facility] 09-03-2023 13:18-0500 Body weight 57.1 kg MACHINE ROOM ENGINEER-C Kya Posadasa MACHINE ROOM ENGINEER Work Phone: [facility] 09-02-2023 13:55-0500 Body height 167.6 cm Rachel Brooks MD Work Phone: [facility] 09-02-2023 13:55-0500 Body mass index (BMI) [Ratio] 20.14 kg/m2 Rachel Brooks MD Work Phone: [facility] 09-02-2023 13:55-0500 Body weight 56.61 kg Rachel Brooks MD Work Phone: [facility] 08-05-2023 09:05-0500 Body mass index (BMI) [Ratio] 21.9 kg/m2 MACHINE ROOM ENGINEER-C Kya Posadasa MACHINE ROOM ENGINEER Work Phone: [facility] 08-05-2023 09:05-0500 Body temperature 98.6 [degF] MACHINE ROOM ENGINEER-C Kya Posadasa MACHINE ROOM ENGINEER Work Phone: [facility] 08-05-2023 09:05-0500 Body weight 57.86 kg MACHINE ROOM ENGINEER-C Kya Posadasa MACHINE ROOM ENGINEER Work Phone: [facility] 08-05-2023 09:05-0500 Diastolic blood pressure 75 mm[Hg] MACHINE ROOM ENGINEER-C Kya Posadasa MACHINE ROOM ENGINEER Work Phone: [facility] 08-05-2023 09:05-0500 Heart rate 74 /min MACHINE ROOM ENGINEER-C Kya Posadasa MACHINE ROOM ENGINEER Work Phone: [facility] 08-05-2023 09:05-0500 Respiratory rate 18 /min MACHINE ROOM ENGINEER-C Kya Posadasa MACHINE ROOM ENGINEER Work Phone: [facility] 08-05-2023 09:05-0500 SaO2% (BldA) [Mass fraction] 100 % MACHINE ROOM ENGINEER-C Kya Gonzalez MACHINE ROOM ENGINEER Work Phone: [facility] 08-05-2023 09:05-0500 Systolic blood pressure 138 mm[Hg] MACHINE ROOM ENGINEER-C Kya Gonzalez MACHINE ROOM ENGINEER Work Phone: [facility] 07-22-2023 07:57-0400 Body height 170.18 cm Koki [...] Phone: 05-22-2023 11:03-0400 Body height 162.56 cm MACHINE ROOM ENGINEER-C Kya Ciesa MACHINE ROOM ENGINEER Work Phone: [facility] 05-22-2023 11:03-0400 Body mass index (BMI) [Ratio] 21.8 kg/m2 MACHINE ROOM ENGINEER-C Kya Ciesa MACHINE ROOM ENGINEER Work Phone: [facility] 05-22-2023 11:03-0400 Body temperature 99.4 [degF] MACHINE ROOM ENGINEER-C Kya Ciesa MACHINE ROOM ENGINEER Work Phone: [facility] 05-22-2023 11:03-0400 Body weight 57.66 kg MACHINE ROOM ENGINEER-C Kya Ciesa MACHINE ROOM ENGINEER Work Phone: [facility] 05-22-2023 11:03-0400 Diastolic blood pressure 73 mm[Hg] MACHINE ROOM ENGINEER-C Kya Ciesa MACHINE ROOM ENGINEER Work Phone: [facility] 05-22-2023 11:03-0400 Heart rate 79 /min MACHINE ROOM ENGINEER-C Kya Ciesa MACHINE ROOM ENGINEER Work Phone: [facility] 05-22-2023 11:03-0400 Respiratory rate 18 /min MACHINE ROOM ENGINEER-C Kya Ciesa MACHINE ROOM ENGINEER Work Phone: [facility] 05-22-2023 11:03-0400 SaO2% (BldA) [Mass fraction] 100 % MACHINE ROOM ENGINEER-C Kya Ciesa MACHINE ROOM ENGINEER Work Phone: [facility] 05-22-2023 11:03-0400 Systolic blood pressure 144 mm[Hg] MACHINE ROOM ENGINEER-C Kya Ciesa MACHINE ROOM ENGINEER Work Phone: [facility] 04-10-2023 08:36-0400 Body mass index (BMI) [Ratio] 22.3 kg/m2 MACHINE ROOM ENGINEER-C Kya Ciesa MACHINE ROOM ENGINEER Work Phone: [facility] 04-10-2023 08:36-0400 Diastolic blood pressure 62 mm[Hg] MACHINE ROOM ENGINEER-C Kya Ciesa MACHINE ROOM ENGINEER Work Phone: [facility] 04-10-2023 08:36-0400 Heart rate 79 /min MACHINE ROOM ENGINEER-C Kya Ciesa MACHINE ROOM ENGINEER Work Phone: [facility] 04-10-2023 08:36-0400 Respiratory rate 16 /min MACHINE ROOM ENGINEER-C Kya Ciesa MACHINE ROOM ENGINEER Work Phone: [facility] 04-10-2023 08:36-0400 Systolic blood pressure 132 mm[Hg] MACHINE ROOM ENGINEER-C Kya Ciesa MACHINE ROOM ENGINEER Work Phone: [facility] 04-03-2023 08:38-0400 Body temperature 97.9 [degF] MACHINE ROOM ENGINEER-C Kya Riveroesa MACHINE ROOM ENGINEER Work Phone: [facility] 03-23-2023 00:56-0400 Body weight 58.96 kg MACHINE ROOM ENGINEER-C Kya Ciesa MACHINE ROOM ENGINEER Work Phone: [facility] 03-20-2023 09:07-0400 Body mass index (BMI) [Ratio] 22.3 kg/m2 MACHINE ROOM ENGINEER-C Kya Ciesa MACHINE ROOM ENGINEER Work Phone: [facility] 03-20-2023 09:07-0400 Diastolic blood pressure 62 mm[Hg] MACHINE ROOM ENGINEER-C Kya Ciesa MACHINE ROOM ENGINEER Work Phone: [facility] 03-20-2023 09:07-0400 Heart rate 62 /min MACHINE ROOM ENGINEER-C Kya Ciesa MACHINE ROOM ENGINEER Work Phone: [facility] 03-20-2023 09:07-0400 Respiratory rate 16 /min MACHINE ROOM ENGINEER-C Kya Ciesa MACHINE ROOM ENGINEER Work Phone: [facility] 03-20-2023 09:07-0400 Systolic blood pressure 113 mm[Hg] MACHINE ROOM ENGINEER-C Kya Gonzalez MACHINE ROOM ENGINEER Work Phone: [facility] 03-13-2023 09:28-0400 Body temperature 97.7 [degF] MACHINE ROOM ENGINEER-C Kya Gonzalez MACHINE ROOM ENGINEER Work Phone: [facility] 03-06-2023 08:52-0400 Body height 166.37 cm Kya Gonzalez Work Phone: OR-Crshipgynclskp-Jq [facility] Work Phone: 03-06-2023 08:52-0400 Body mass index (BMI) [Ratio] 20.48 kg/m2 Kya Gonzalez Work Phone: NR-Sxidydekicmlam-Rq [facility] Work Phone: 03-06-2023 08:52-0400 Body surface area Derived from formula 1.63 m2 Kya oGnzalez Work Phone: PD-Snklkeqvjbminr-Iy [facility] Work Phone: 03-06-2023 08:52-0400 Body temperature 97.4 [degF] Kya Gonzalez Work Phone: AC-Lthbownuwgcgsp-Ji [facility] Work Phone: 03-06-2023 08:52-0400 Body weight 56.7 kg Kya Gonzalez Work Phone: VU-Aeaqodoyuectgl-Fq [facility] Work Phone: 03-06-2023 08:52-0400 Diastolic blood pressure 79 mm[Hg] Kya Gonzalez Work Phone: CW-Bsdyhtjejbumit-Iq [facility] Work Phone: 03-06-2023 08:52-0400 Heart rate 76 /min Kya Gonzalez Work Phone: KX-Ewjxlwdgzndhip-Bx [facility] Work Phone: 06-14-2023 08:52-0400 Systolic blood pressure 132 mm[Hg] Kya Gonzalez Work Phone: AY-Djlokgmplezcze-Fk [facility] Work Phone: 02-25-2023 13:12-0400 Body mass index (BMI) [Ratio] 20.52 kg/m2 Kya Gonzalez Work Phone: DC-Aqkemtdnzqfqzz-De [place] Work Phone: 02-25-2023 13:12-0400 Body surface area Derived from formula 1.63 m2 Kya Gonzalez Work Phone: RF-Ojcbhanrieqlpm-Ke [place] Work Phone: 02-25-2023 13:12-0400 Body weight 56.79 kg Kya Gonzalez Work Phone: AW-Kzppzpgjbjuhis-Lw [place] Work Phone: 02-21-2023 00:25-0400 Body weight 58.96 kg MACHINE ROOM ENGINEER-C Kya Gonzalez MACHINE ROOM ENGINEER Work Phone: [facility] 02-20-2023 08:46-0400 Body mass index (BMI) [Ratio] 22.3 kg/m2 MACHINE ROOM ENGINEER-C Kya Gonzalez MACHINE ROOM ENGINEER Work Phone: [facility] 02-20-2023 08:46-0400 Body temperature 97.5 [degF] MACHINE ROOM ENGINEER-C Kya Gonzalez MACHINE ROOM ENGINEER Work Phone: [facility] 02-20-2023 08:46-0400 Diastolic blood pressure 60 mm[Hg] MACHINE ROOM ENGINEER-C Kya Gonzalez MACHINE ROOM ENGINEER Work Phone: [facility] 02-20-2023 08:46-0400 Heart rate 74 /min MACHINE ROOM ENGINEER-C Kya Gonzalez MACHINE ROOM ENGINEER Work Phone: [facility] 02-20-2023 08:46-0400 Respiratory rate 18 /min MACHINE ROOM ENGINEER-C Kya Gonzalez MACHINE ROOM ENGINEER Work Phone: [facility] 02-20-2023 08:46-0400 Systolic blood pressure 126 mm[Hg] MACHINE ROOM ENGINEER-C Kya Posadasa MACHINE ROOM ENGINEER Work Phone: [facility] 01-31-2023 10:04-0400 Body height 162.56 cm MACHINE ROOM ENGINEER-C Kya Ciesa MACHINE ROOM ENGINEER Work Phone: [facility] 01-31-2023 10:00-0400 Body mass index (BMI) [Ratio] 21.5 kg/m2 MACHINE ROOM ENGINEER-C Kya Ciesa MACHINE ROOM ENGINEER Work Phone: [facility] 01-31-2023 10:00-0400 Body temperature 96.8 [degF] MACHINE ROOM ENGINEER-C Kya Ciesa MACHINE ROOM ENGINEER Work Phone: [facility] 01-31-2023 10:00-0400 Body weight 56.86 kg MACHINE ROOM ENGINEER-C Kya Ciesa MACHINE ROOM ENGINEER Work Phone: [facility] 01-31-2023 10:00-0400 Diastolic blood pressure 80 mm[Hg] MACHINE ROOM ENGINEER-C Kya Ciesa MACHINE ROOM ENGINEER Work Phone: [facility] 01-31-2023 10:00-0400 Heart rate 81 /min MACHINE ROOM ENGINEER-C Kya Ciesa MACHINE ROOM ENGINEER Work Phone: [facility] 01-31-2023 10:00-0400 Respiratory rate 16 /min MACHINE ROOM ENGINEER-C Kya Ciesa MACHINE ROOM ENGINEER Work Phone: [facility] 01-31-2023 10:00-0400 Systolic blood pressure 121 mm[Hg] MACHINE ROOM ENGINEER-C Kya Ciesa MACHINE ROOM ENGINEER Work Phone: [facility] 01-30-2023 08:27-0400 Body mass index (BMI) [Ratio] 22.3 kg/m2 MACHINE ROOM ENGINEER-C Kya Ciesa MACHINE ROOM ENGINEER Work Phone: [facility] 01-30-2023 08:27-0400 Body temperature 99 [degF] MACHINE ROOM ENGINEER-C Kya Ciesa MACHINE ROOM ENGINEER Work Phone: [facility] 01-30-2023 08:27-0400 Diastolic blood pressure 62 mm[Hg] MACHINE ROOM ENGINEER-C Kya Ciesa MACHINE ROOM ENGINEER Work Phone: [facility] 01-30-2023 08:27-0400 Heart rate 72 /min MACHINE ROOM ENGINEER-C Kya Gonzalez MACHINE ROOM ENGINEER Work Phone: [facility] 01-30-2023 08:27-0400 Respiratory rate 18 /min MACHINE ROOM ENGINEER-C Kya Gonzalez MACHINE ROOM ENGINEER Work Phone: [facility] 01-30-2023 08:27-0400 Systolic blood pressure 115 mm[Hg] MACHINE ROOM ENGINEER-C Kya Gonzalez MACHINE ROOM ENGINEER Work Phone: [facility] 01-28-2023 16:16-0400 Body height 166.37 cm Kya Gonzalez Work Phone: UG-Vepzwrmayfyeni-Fr [address] [address] Work Phone: 01-28-2023 16:16-0400 Body mass index (BMI) [Ratio] 20.32 kg/m2 Kya Gonzalez Work Phone: SP-Cjqeftxzbvryhm-Gs [address] Work Phone: 01-28-2023 16:16-0400 Body surface area Derived from formula 1.62 m2 Kya Gonzalez Work Phone: IU-Aiebengzhflhgh-Vt [address] Work Phone: 01-28-2023 16:16-0400 Body weight 56.25 kg Kya Gonzalez Work Phone: MF-Sgzvfyokgaidws-Kw [address] Work Phone: 01-21-2023 00:26-0400 Body weight 58.96 kg MACHINE ROOM ENGINEER-C Kya Gonzalez MACHINE ROOM ENGINEER Work Phone: [facility] 01-16-2023 08:32-0400 Body mass index (BMI) [Ratio] 22.3 kg/m2 MACHINE ROOM ENGINEER-C Kya Gonzalez MACHINE ROOM ENGINEER Work Phone: [facility] 01-16-2023 08:32-0400 Body temperature 97 [degF] MACHINE ROOM ENGINEER-C Kya Gonzalez MACHINE ROOM ENGINEER Work Phone: [facility] 01-16-2023 08:32-0400 Diastolic blood pressure 55 mm[Hg] MACHINE ROOM ENGINEER-C Kya Gonzalez MACHINE ROOM ENGINEER Work Phone: [facility] 01-16-2023 08:32-0400 Heart rate 73 /min MACHINE ROOM ENGINEER-C Kya Gonzalez MACHINE ROOM ENGINEER Work Phone: [facility] 01-16-2023 08:32-0400 Respiratory rate 18 /min MACHINE ROOM ENGINEER-C Kya Gonzalez MACHINE ROOM ENGINEER Work Phone: [facility] 01-16-2023 08:32-0400 Systolic blood pressure 117 mm[Hg] MACHINE ROOM ENGINEER-C Kya Gonzalez MACHINE ROOM ENGINEER Work Phone: [facility] 01-16-2023 07:51-0400 Body height 170.18 cm Koki [...] Phone: 12-22-2022 01:22-0400 Body weight 58.96 kg MACHINE ROOM ENGINEER-C Kya Ciesa MACHINE ROOM ENGINEER Work Phone: [facility] 12-12-2022 08:52-0400 Body mass index (BMI) [Ratio] 22.3 kg/m2 MACHINE ROOM ENGINEER-C Kya Ciesa MACHINE ROOM ENGINEER Work Phone: [facility] 12-12-2022 08:52-0400 Body temperature 96.9 [degF] MACHINE ROOM ENGINEER-C Kya Ciesa MACHINE ROOM ENGINEER Work Phone: [facility] 12-12-2022 08:52-0400 Diastolic blood pressure 66 mm[Hg] MACHINE ROOM ENGINEER-C Kya Ciesa MACHINE ROOM ENGINEER Work Phone: [facility] 12-12-2022 08:52-0400 Heart rate 77 /min MACHINE ROOM ENGINEER-C Kya Ciesa MACHINE ROOM ENGINEER Work Phone: [facility] 12-12-2022 08:52-0400 Systolic blood pressure 113 mm[Hg] MACHINE ROOM ENGINEER-C Kya Ciesa MACHINE ROOM ENGINEER Work Phone: [facility] 11-28-2022 08:23-0500 Respiratory rate 18 /min MACHINE ROOM ENGINEER-C Kya Ciesa MACHINE ROOM ENGINEER Work Phone: [facility] 11-21-2022 13:10-0500 Body height 162.56 cm MACHINE ROOM ENGINEER-C Kya Ciesa MACHINE ROOM ENGINEER Work Phone: [facility] 11-21-2022 13:09-0500 Body mass index (BMI) [Ratio] 21.5 kg/m2 MACHINE ROOM ENGINEER-C Kya Ciesa MACHINE ROOM ENGINEER Work Phone: [facility] 11-21-2022 13:09-0500 Body temperature 98.4 [degF] MACHINE ROOM ENGINEER-C Kya Ciesa MACHINE ROOM ENGINEER Work Phone: [facility] 11-21-2022 13:09-0500 Body weight 56.86 kg MACHINE ROOM ENGINEER-C Kya Posadasa MACHINE ROOM ENGINEER Work Phone: [facility] 11-21-2022 13:09-0500 Diastolic blood pressure 76 mm[Hg] MACHINE ROOM ENGINEER-C Kya Ciesa MACHINE ROOM ENGINEER Work Phone: [facility] 11-21-2022 13:09-0500 Heart rate 78 /min MACHINE ROOM ENGINEER-C Kya Ciesa MACHINE ROOM ENGINEER Work Phone: [facility] 11-21-2022 13:09-0500 Respiratory rate 18 /min MACHINE ROOM ENGINEER-C Kya Ciesa MACHINE ROOM ENGINEER Work Phone: [facility] 11-21-2022 13:09-0500 SaO2% (BldA) [Mass fraction] 100 % MACHINE ROOM ENGINEER-C Kya Riveroesa MACHINE ROOM ENGINEER Work Phone: [facility] 11-21-2022 13:09-0500 Systolic blood pressure 129 mm[Hg] MACHINE ROOM ENGINEER-C Kya Posadasa MACHINE ROOM ENGINEER Work Phone: [facility] 11-21-2022 00:17-0500 Body weight 58.96 kg MACHINE ROOM ENGINEER-C Kya Posadasa MACHINE ROOM ENGINEER Work Phone: [facility] 11-14-2022 08:59-0500 Body mass index (BMI) [Ratio] 22.3 kg/m2 MACHINE ROOM ENGINEER-C Kya Posadasa MACHINE ROOM ENGINEER Work Phone: [facility] 11-14-2022 08:59-0500 Body temperature 97.6 [degF] MACHINE ROOM ENGINEER-C Kya Riveroesa MACHINE ROOM ENGINEER Work Phone: [facility] 11-14-2022 08:59-0500 Diastolic blood pressure 53 mm[Hg] MACHINE ROOM ENGINEER-C Kya Ciesa MACHINE ROOM ENGINEER Work Phone: [facility] 11-14-2022 08:59-0500 Heart rate 75 /min MACHINE ROOM ENGINEER-C Kya Ciesa MACHINE ROOM ENGINEER Work Phone: [facility] 11-14-2022 08:59-0500 Systolic blood pressure 113 mm[Hg] MACHINE ROOM ENGINEER-C Kya Posadasa MACHINE ROOM ENGINEER Work Phone: [facility] 11-05-2022 08:05-0500 Body height 162.56 cm MACHINE ROOM ENGINEER-C Kya Posadasa MACHINE ROOM ENGINEER Work Phone: [facility] 11-05-2022 08:05-0500 Body weight 57.6 kg MACHINE ROOM ENGINEER-C Kya Posadasa MACHINE ROOM ENGINEER Work Phone: [facility] 11-01-2022 09:33-0500 Body mass index (BMI) [Ratio] 21.8 kg/m2 MACHINE ROOM ENGINEER-C Kya Posadasa MACHINE ROOM ENGINEER Work Phone: [facility] 11-01-2022 09:33-0500 Body temperature 97.3 [degF] MACHINE ROOM ENGINEER-C Kya Posadasa MACHINE ROOM ENGINEER Work Phone: [facility] 11-01-2022 09:33-0500 Body weight 57.6 kg MACHINE ROOM ENGINEER-C Kya Posadasa MACHINE ROOM ENGINEER Work Phone: [facility] 11-01-2022 09:33-0500 Diastolic blood pressure 57 mm[Hg] MACHINE ROOM ENGINEER-C Kya Posadasa MACHINE ROOM ENGINEER Work Phone: [facility] 11-01-2022 09:33-0500 Heart rate 91 /min MACHINE ROOM ENGINEER-C Kya Posadasa MACHINE ROOM ENGINEER Work Phone: [facility] 11-01-2022 09:33-0500 Respiratory rate 18 /min MACHINE ROOM ENGINEER-C Kya Posadasa MACHINE ROOM ENGINEER Work Phone: [facility] 11-01-2022 09:33-0500 SaO2% (BldA) [Mass fraction] 94 % MACHINE ROOM ENGINEER-C Kya Posadasa MACHINE ROOM ENGINEER Work Phone: [facility] 11-01-2022 09:33-0500 Systolic blood pressure 117 mm[Hg] MACHINE ROOM ENGINEER-C Kya Posadasa MACHINE ROOM ENGINEER Work Phone: [facility] 10-24-2022 00:23-0500 Body weight 58.96 kg MACHINE ROOM ENGINEER-C Kya Posadasa MACHINE ROOM ENGINEER Work Phone: [facility] 10-24-2022 00:23-0500 Respiratory rate 16 /min MACHINE ROOM ENGINEER-C Kya Ciesa MACHINE ROOM ENGINEER Work Phone: [facility] 10-10-2022 08:29-0500 Body mass index (BMI) [Ratio] 22.3 kg/m2 MACHINE ROOM ENGINEER-C Kya Ciesa MACHINE ROOM ENGINEER Work Phone: [facility] 10-10-2022 08:29-0500 Body temperature 97.4 [degF] MACHINE ROOM ENGINEER-C Kya Ciesa MACHINE ROOM ENGINEER Work Phone: [facility] 10-10-2022 08:29-0500 Diastolic blood pressure 59 mm[Hg] MACHINE ROOM ENGINEER-C Kya Ciesa MACHINE ROOM ENGINEER Work Phone: [facility] 10-10-2022 08:29-0500 Heart rate 69 /min MACHINE ROOM ENGINEER-C Kya Ciesa MACHINE ROOM ENGINEER Work Phone: [facility] 10-10-2022 08:29-0500 Respiratory rate 16 /min MACHINE ROOM ENGINEER-C Kya Ciesa MACHINE ROOM ENGINEER Work Phone: [facility] 10-10-2022 08:29-0500 Systolic blood pressure 121 mm[Hg] MACHINE ROOM ENGINEER-C Kya Ciesa MACHINE ROOM ENGINEER Work Phone: [facility] 09-23-2022 00:13-0500 Body weight 58.96 kg MACHINE ROOM ENGINEER-C Kya Ciesa MACHINE ROOM ENGINEER Work Phone: [facility] 09-19-2022 08:29-0500 Body mass index (BMI) [Ratio] 22.3 kg/m2 MACHINE ROOM ENGINEER-C Kya Ciesa MACHINE ROOM ENGINEER Work Phone: [facility] 09-19-2022 08:29-0500 Body temperature 97.2 [degF] MACHINE ROOM ENGINEER-C Kya Ciesa MACHINE ROOM ENGINEER Work Phone: [facility] 09-19-2022 08:29-0500 Diastolic blood pressure 63 mm[Hg] MACHINE ROOM ENGINEER-C Kya Ciesa MACHINE ROOM ENGINEER Work Phone: [facility] 09-19-2022 08:29-0500 Heart rate 69 /min MACHINE ROOM ENGINEER-C Kya Ciesa MACHINE ROOM ENGINEER Work Phone: [facility] 09-19-2022 08:29-0500 Systolic blood pressure 116 mm[Hg] MACHINE ROOM ENGINEER-C Kya Riveroesa MACHINE ROOM ENGINEER Work Phone: [facility] 09-12-2022 08:25-0500 Respiratory rate 16 /min MACHINE ROOM ENGINEER-C Kya Riveroesa MACHINE ROOM ENGINEER Work Phone: [facility] 08-23-2022 00:14-0500 Body weight 58.96 kg MACHINE ROOM ENGINEER-C Kya Riveroesa MACHINE ROOM ENGINEER Work Phone: [facility] 08-22-2022 08:29-0500 Body mass index (BMI) [Ratio] 22.3 kg/m2 MACHINE ROOM ENGINEER-C Kya Riveroesa MACHINE ROOM ENGINEER Work Phone: [facility] 08-22-2022 08:29-0500 Body temperature 98.2 [degF] MACHINE ROOM ENGINEER-C Kya Riveroesa MACHINE ROOM ENGINEER Work Phone: [facility] 08-22-2022 08:29-0500 Diastolic blood pressure 58 mm[Hg] MACHINE ROOM ENGINEER-C Kya Riveroesa MACHINE ROOM ENGINEER Work Phone: [facility] 08-22-2022 08:29-0500 Heart rate 75 /min MACHINE ROOM ENGINEER-C Kya Riveroesa MACHINE ROOM ENGINEER Work Phone: [facility] 08-22-2022 08:29-0500 Respiratory rate 16 /min MACHINE ROOM ENGINEER-C Kya Riveroesa MACHINE ROOM ENGINEER Work Phone: [facility] 08-22-2022 08:29-0500 Systolic blood pressure 117 mm[Hg] MACHINE ROOM ENGINEER-C Kya Ciesa MACHINE ROOM ENGINEER Work Phone: [facility] 07-31-2022 09:11-0500 Body height 162.56 cm MACHINE ROOM ENGINEER-C Kya Ciesa MACHINE ROOM ENGINEER Work Phone: [facility] 07-31-2022 09:10-0500 Body mass index (BMI) [Ratio] 22.1 kg/m2 MACHINE ROOM ENGINEER-C Kya Ciesa MACHINE ROOM ENGINEER Work Phone: [facility] 07-31-2022 09:10-0500 Body temperature 97.9 [degF] MACHINE ROOM ENGINEER-C Kya Posadasa MACHINE ROOM ENGINEER Work Phone: [facility] 07-31-2022 09:10-0500 Body weight 58.62 kg MACHINE ROOM ENGINEER-C Kya Posadasa MACHINE ROOM ENGINEER Work Phone: [facility] 07-31-2022 09:10-0500 Diastolic blood pressure 65 mm[Hg] MACHINE ROOM ENGINEER-C Kya Posadasa MACHINE ROOM ENGINEER Work Phone: [facility] 07-31-2022 09:10-0500 Heart rate 88 /min MACHINE ROOM ENGINEER-C Kya Posadasa MACHINE ROOM ENGINEER Work Phone: [facility] 07-31-2022 09:10-0500 Respiratory rate 16 /min MACHINE ROOM ENGINEER-C Kya Riveroesa MACHINE ROOM ENGINEER Work Phone: [facility] 07-31-2022 09:10-0500 SaO2% (BldA) [Mass fraction] 98 % MACHINE ROOM ENGINEER-C Kya Posadasa MACHINE ROOM ENGINEER Work Phone: [facility] 07-31-2022 09:10-0500 Systolic blood pressure 113 mm[Hg] MACHINE ROOM ENGINEER-C Kya Posadasa MACHINE ROOM ENGINEER Work Phone: [facility] 07-24-2022 00:14-0400 Body weight 58.96 kg MACHINE ROOM ENGINEER-C Kya Posadasa MACHINE ROOM ENGINEER Work Phone: [facility] 07-18-2022 08:31-0400 Body mass index (BMI) [Ratio] 22.3 kg/m2 MACHINE ROOM ENGINEER-C Kya Posadasa MACHINE ROOM ENGINEER Work Phone: [facility] 07-18-2022 08:31-0400 Body temperature 96.9 [degF] MACHINE ROOM ENGINEER-C Kya Posadasa MACHINE ROOM ENGINEER Work Phone: [facility] 07-18-2022 08:31-0400 Diastolic blood pressure 57 mm[Hg] MACHINE ROOM ENGINEER-C Kya Riveroesa MACHINE ROOM ENGINEER Work Phone: [facility] 07-18-2022 08:31-0400 Heart rate 81 /min MACHINE ROOM ENGINEER-C Kya Ciesa MACHINE ROOM ENGINEER Work Phone: [facility] 07-18-2022 08:31-0400 Systolic blood pressure 133 mm[Hg] MACHINE ROOM ENGINEER-C Kya Gonzalez MACHINE ROOM ENGINEER Work Phone: [facility] 07-04-2022 08:19-0400 Respiratory rate 18 /min MACHINE ROOM ENGINEER-C Kya Gonzalez MACHINE ROOM ENGINEER Work Phone: [facility] 06-23-2022 00:29-0400 Body weight 58.96 kg MACHINE ROOM ENGINEER-C Kya Gonzalez MACHINE ROOM ENGINEER Work Phone: [facility] 06-20-2022 08:43-0400 Body mass index (BMI) [Ratio] 22.3 kg/m2 MACHINE ROOM ENGINEER-C Kya Gonzalez MACHINE ROOM ENGINEER Work Phone: [facility] Work Phone: 06-20-2022 08:43-0400 Body temperature 97.2 [degF] MACHINE ROOM ENGINEER-C Kya Gonzalez MACHINE ROOM ENGINEER Work Phone: [facility] Work Phone: 06-20-2022 08:43-0400 Diastolic blood pressure 63 mm[Hg] MACHINE ROOM ENGINEER-C Kya Gonzalez MACHINE ROOM ENGINEER Work Phone: [facility] Work Phone: 06-20-2022 08:43-0400 Heart rate 63 /min MACHINE ROOM ENGINEER-C Kya Gonzalez MACHINE ROOM ENGINEER Work Phone: [facility] Work Phone: 06-20-2022 08:43-0400 Systolic blood pressure 124 mm[Hg] MACHINE ROOM ENGINEER-C Kya Gonzalez MACHINE ROOM ENGINEER Work Phone: [facility] Work Phone: 06-18-2022 08:48-0400 Body mass index (BMI) [Ratio] 21.39 kg/m2 Kya Gonzalez Work Phone: RF-Tjkugnjlmbyrrz-Ax [facility] Work Phone: 06-18-2022 08:48-0400 Body surface area Derived from formula 1.66 m2 Kya Gonzalez Work Phone: PB-Oxlexkhvyyhnat-Ti [facility] Work Phone: 06-18-2022 08:48-0400 Body weight 59.19 kg Kya Gonzalez Work Phone: EQ-Tdxqbhminpdbzw-Go [facility] Work Phone: 06-13-2022 08:22-0400 Respiratory rate 16 /min MACHINE ROOM ENGINEER-C Kya Gonzalez MACHINE ROOM ENGINEER Work Phone: [facility] Work Phone: 05-24-2022 00:05-0400 Body weight 58.96 kg MACHINE ROOM ENGINEER-C Kya Posadasa MACHINE ROOM ENGINEER Work Phone: [facility] Work Phone: 05-23-2022 11:35-0400 Body height 162.56 cm MACHINE ROOM ENGINEER-C Kya Posadasa MACHINE ROOM ENGINEER Work Phone: [facility] Work Phone: 05-23-2022 11:35-0400 Body mass index (BMI) [Ratio] 21.9 kg/m2 MACHINE ROOM ENGINEER-C Kya Posadasa MACHINE ROOM ENGINEER Work Phone: [facility] Work Phone: 05-23-2022 11:35-0400 Body temperature 98.4 [degF] MACHINE ROOM ENGINEER-C Kya Posadasa MACHINE ROOM ENGINEER Work Phone: [facility] Work Phone: 05-23-2022 11:35-0400 Body weight 58.11 kg MACHINE ROOM ENGINEER-C Kya Posadasa MACHINE ROOM ENGINEER Work Phone: [facility] Work Phone: 05-23-2022 11:35-0400 Diastolic blood pressure 75 mm[Hg] MACHINE ROOM ENGINEER-C Kya Posadasa MACHINE ROOM ENGINEER Work Phone: [facility] Work Phone: 05-23-2022 11:35-0400 Heart rate 69 /min MACHINE ROOM ENGINEER-C Kya Ciesa MACHINE ROOM ENGINEER Work Phone: [facility] Work Phone: 05-23-2022 11:35-0400 Respiratory rate 16 /min MACHINE ROOM ENGINEER-C Kya Gonzalez MACHINE ROOM ENGINEER Work Phone: [facility] Work Phone: 05-23-2022 11:35-0400 SaO2% (BldA) [Mass fraction] 99 % MACHINE ROOM ENGINEER-C Kya Gonzalez MACHINE ROOM ENGINEER Work Phone: [facility] Work Phone: 05-23-2022 11:35-0400 Systolic blood pressure 152 mm[Hg] MACHINE ROOM ENGINEER-C Kya Gonzalez MACHINE ROOM ENGINEER Work Phone: [facility] Work Phone: 05-23-2022 09:23-0400 Body mass index (BMI) [Ratio] 22.3 kg/m2 MACHINE ROOM ENGINEER-C Kya Gonzalez MACHINE ROOM ENGINEER Work Phone: [facility] Work Phone: 05-23-2022 09:23-0400 Body temperature 97.3 [degF] MACHINE ROOM ENGINEER-C Kya Gonzalez MACHINE ROOM ENGINEER Work Phone: [facility] Work Phone: 05-23-2022 09:23-0400 Diastolic blood pressure 61 mm[Hg] MACHINE ROOM ENGINEER-C Kya Gonzalez MACHINE ROOM ENGINEER Work Phone: [facility] Work Phone: 05-23-2022 09:23-0400 Heart rate 67 /min MACHINE ROOM ENGINEER-C Kya Gonzalez MACHINE ROOM ENGINEER Work Phone: [facility] Work Phone: 05-23-2022 09:23-0400 Systolic blood pressure 125 mm[Hg] MACHINE ROOM ENGINEER-C Kya Gonzalez MACHINE ROOM ENGINEER Work Phone: [facility] Work Phone: 05-14-2022 08:51-0400 Body height 166.37 cm Kya Posadaschioma Work Phone: YU-Kqatdesdaqoxhh-Un [facility] Work Phone: 05-14-2022 08:51-0400 Body mass index (BMI) [Ratio] 21.55 kg/m2 Kya Gonzalez Work Phone: JR-Egdahsgikmsfmt-Oc [facility] Work Phone: 05-14-2022 08:51-0400 Body surface area Derived from formula 1.66 m2 Kya Gonzalez Work Phone: [facility] Work Phone: 05-14-2022 08:51-0400 Body weight 59.65 kg Kya Gonzalez Work Phone: DO-Xhmhjfvdogflax-Ix [facility] Work Phone: 05-02-2022 09:34-0400 Respiratory rate 18 /min MACHINE ROOM ENGINEER-C Kya Gonzalez MACHINE ROOM ENGINEER Work Phone: [facility] Work Phone: 04-30-2022 09:01-0400 Body mass index (BMI) [Ratio] 21.7 kg/m2 MACHINE ROOM ENGINEER-C Kya Gonzalez MACHINE ROOM ENGINEER Work Phone: [facility] Work Phone: 04-30-2022 09:01-0400 Body temperature 98 [degF] MACHINE ROOM ENGINEER-C Kya Posadasa MACHINE ROOM ENGINEER Work Phone: [facility] Work Phone: 04-30-2022 09:01-0400 Body weight 57.32 kg MACHINE ROOM ENGINEER-C Kya Posadasa MACHINE ROOM ENGINEER Work Phone: [facility] Work Phone: 04-30-2022 09:01-0400 Diastolic blood pressure 69 mm[Hg] MACHINE ROOM ENGINEER-C Kya Posadasa MACHINE ROOM ENGINEER Work Phone: [facility] Work Phone: 04-30-2022 09:01-0400 Heart rate 74 /min MACHINE ROOM ENGINEER-C Kya Ciesa MACHINE ROOM ENGINEER Work Phone: [facility] Work Phone: 04-30-2022 09:01-0400 Respiratory rate 18 /min MACHINE ROOM ENGINEER-C Kya Gonzalez MACHINE ROOM ENGINEER Work Phone: [facility] Work Phone: 04-30-2022 09:01-0400 SaO2% (BldA) [Mass fraction] 100 % MACHINE ROOM ENGINEER-C Kya Gonzalez MACHINE ROOM ENGINEER Work Phone: [facility] Work Phone: 04-30-2022 09:01-0400 Systolic blood pressure 126 mm[Hg] MACHINE ROOM ENGINEER-C Kya Gonzalez MACHINE ROOM ENGINEER Work Phone: [facility] Work Phone: 04-16-2022 10:45-0400 Body height 167.64 cm Kya Gonzalez Work Phone: LV-Hhdsnuwqjlkgev-Tq [facility] Work Phone: 04-16-2022 10:45-0400 Body mass index (BMI) [Ratio] 20.66 kg/m2 Kya Gonzalez Work Phone: ME-Arbaoblidxdvoi-La [facility] Work Phone: 04-16-2022 10:45-0400 Body surface area Derived from formula 1.65 m2 Kya Gonzalez Work Phone: ZO-Lcosalbsincqww-Us [facility] Work Phone: 04-16-2022 10:45-0400 Body weight 58.06 kg Kya Gonzalez Work Phone: NT-Suxfdzzmyeptmd-Zg [facility] Work Phone: 04-02-2022 09:01-0400 Body height 167.64 cm Kya Gonzalez Work Phone: KM-Kwhzqzmcurbaee-Kh [facility] Work Phone: 04-02-2022 09:01-0400 Body mass index (BMI) [Ratio] 20.4 kg/m2 Kya Gonzalez Work Phone: BW-Qbbcdnevvdxucf-Oc [facility] Work Phone: 04-02-2022 09:01-0400 Body surface area Derived from formula 1.65 m2 Kya Gonzalez Work Phone: RU-Tgiuebcnrjsozy-Lw [facility] Work Phone: 04-02-2022 09:01-0400 Body weight 57.33 kg Kya Gonzalez Work Phone: SQ-Othgozntrzqqkv-Am [facility] Work Phone: 03-28-2022 11:02-0400 Body height 162.56 cm MACHINE ROOM ENGINEER-C Kya Gonzalez MACHINE ROOM ENGINEER Work Phone: [facility] Work Phone: 03-28-2022 11:02-0400 Body weight 57.74 kg MACHINE ROOM ENGINEER-C Kya Gonzalez MACHINE ROOM ENGINEER Work Phone: [facility] Work Phone: 03-27-2022 09:25-0400 Body mass index (BMI) [Ratio] 21.8 kg/m2 MACHINE ROOM ENGINEER-C Kya Gonzalez MACHINE ROOM ENGINEER Work Phone: [facility] Work Phone: 03-27-2022 09:25-0400 Body temperature 97.9 [degF] MACHINE ROOM ENGINEER-C Kya Gonzalez MACHINE ROOM ENGINEER Work Phone: [facility] Work Phone: 03-27-2022 09:25-0400 Body weight 57.74 kg MACHINE ROOM ENGINEER-C Kya Gonzalez MACHINE ROOM ENGINEER Work Phone: [facility] Work Phone: 03-27-2022 09:25-0400 Diastolic blood pressure 69 mm[Hg] MACHINE ROOM ENGINEER-C Kya Posadasa MACHINE ROOM ENGINEER Work Phone: [facility] Work Phone: 03-27-2022 09:25-0400 Heart rate 78 /min MACHINE ROOM ENGINEER-C Kya Posadasa MACHINE ROOM ENGINEER Work Phone: [facility] Work Phone: 03-27-2022 09:25-0400 Respiratory rate 20 /min MACHINE ROOM ENGINEER-C Kya Posadasa MACHINE ROOM ENGINEER Work Phone: [facility] Work Phone: 03-27-2022 09:25-0400 SaO2% (BldA) [Mass fraction] 100 % MACHINE ROOM ENGINEER-C Kya Posadasa MACHINE ROOM ENGINEER Work Phone: [facility] Work Phone: 03-27-2022 09:25-0400 Systolic blood pressure 116 mm[Hg] MACHINE ROOM ENGINEER-C Kya Posadasa MACHINE ROOM ENGINEER Work Phone: [facility] Work Phone: 02-27-2022 10:05-0400 Body temperature 97 [degF] MACHINE ROOM ENGINEER-C Kya Posadasa MACHINE ROOM ENGINEER Work Phone: [facility] Work Phone: 02-27-2022 10:05-0400 Body weight 57.6 kg MACHINE ROOM ENGINEER-C Kya Posadasa MACHINE ROOM ENGINEER Work Phone: [facility] Work Phone: 02-27-2022 10:05-0400 Heart rate 71 /min MACHINE ROOM ENGINEER-C Kya Posadasa MACHINE ROOM ENGINEER Work Phone: [facility] Work Phone: 02-27-2022 10:05-0400 Respiratory rate 18 /min MACHINE ROOM ENGINEER-C Kya Posadasa MACHINE ROOM ENGINEER Work Phone: [facility] Work Phone: 02-27-2022 10:05-0400 SaO2% (BldA) [Mass fraction] 100 % MACHINE ROOM ENGINEER-C Kya Posadasa MACHINE ROOM ENGINEER Work Phone: [facility] Work Phone: 02-15-2022 12:03-0400 Body height 170.18 [...] Standard 02-14-2022 10:44-0400 Body height 162.56 cm MACHINE ROOM ENGINEER-C Kya Gonzalez MACHINE ROOM ENGINEER Work Phone: [facility] Work Phone: 02-14-2022 10:44-0400 Body mass index (BMI) [Ratio] 21.8 kg/m2 MACHINE ROOM ENGINEER-C Kya Gonzalez MACHINE ROOM ENGINEER Work Phone: [facility] Work Phone: 02-14-2022 10:38-0400 Body temperature 98.2 [degF] MACHINE ROOM ENGINEER-C Kya Gonzalez MACHINE ROOM ENGINEER Work Phone: [facility] Work Phone: 02-14-2022 10:38-0400 Body weight 57.71 kg MACHINE ROOM ENGINEER-C Kya Gonzalez MACHINE ROOM ENGINEER Work Phone: [facility] Work Phone: 02-14-2022 10:38-0400 Diastolic blood pressure 61 mm[Hg] MACHINE ROOM ENGINEER-C Kya Gonzalez MACHINE ROOM ENGINEER Work Phone: [facility] Work Phone: 02-14-2022 10:38-0400 Heart rate 77 /min MACHINE ROOM ENGINEER-C Kya Gonzalez MACHINE ROOM ENGINEER Work Phone: [facility] Work Phone: 02-14-2022 10:38-0400 Respiratory rate 17 /min MACHINE ROOM ENGINEER-C Kya Gonzalez MACHINE ROOM ENGINEER Work Phone: [facility] Work Phone: 02-14-2022 10:38-0400 SaO2% (BldA) [Mass fraction] 100 % MACHINE ROOM ENGINEER-C Kya Gonzalez MACHINE ROOM ENGINEER Work Phone: [facility] Work Phone: 02-14-2022 10:38-0400 Systolic blood pressure 107 mm[Hg] MACHINE ROOM ENGINEER-C Kya Gonzalez MACHINE ROOM ENGINEER Work Phone: [facility] Work Phone: 02-12-2022 11:25-0400 Body height 167.64 cm Kya Gonzalez Work Phone: ZR-Ulengsshjwzyxw-Ok [facility] Work Phone: 02-12-2022 11:25-0400 Body mass index (BMI) [Ratio] 20.4 kg/m2 Kya Gonzalez Work Phone: HG-Ogekgkaznbmjfv-Yw ron Work Phone: 02-12-2022 11:25-0400 Body surface area Derived from formula 1.65 m2 Kya Gonzalez Work Phone: IA-Aedordcxwibtch-Zg ron Work Phone: 02-12-2022 11:25-0400 Body weight 57.33 kg Kya Gonzalez Work Phone: SS-Laexhkngbvgbln-Sy ron Work Phone: 02-06-2022 08:50-0400 Body mass index (BMI) [Ratio] 20.4 kg/m2 MACHINE ROOM ENGINEER-C Kya Gonzalez MACHINE ROOM ENGINEER Work Phone: [facility] Work Phone: 02-06-2022 08:50-0400 Body temperature 97.8 [degF] MACHINE ROOM ENGINEER-C Kya Gonzalez MACHINE ROOM ENGINEER Work Phone: [facility] Work Phone: 02-06-2022 08:50-0400 Body weight 57.4 kg MACHINE ROOM ENGINEER-C Kya Gonzalez MACHINE ROOM ENGINEER Work Phone: [facility] Work Phone: 02-06-2022 08:50-0400 Diastolic blood pressure 69 mm[Hg] MACHINE ROOM ENGINEER-C Kya Gonzalez MACHINE ROOM ENGINEER Work Phone: [facility] Work Phone: 02-06-2022 08:50-0400 Heart rate 69 /min MACHINE ROOM ENGINEER-C Kya Gonzalez MACHINE ROOM ENGINEER Work Phone: [facility] Work Phone: 02-06-2022 08:50-0400 Respiratory rate 17 /min MACHINE ROOM ENGINEER-C Kya Posadasa MACHINE ROOM ENGINEER Work Phone: [facility] Work Phone: 02-06-2022 08:50-0400 SaO2% (BldA) [Mass fraction] 700 % MACHINE ROOM ENGINEER-C Kya Posadasa MACHINE ROOM ENGINEER Work Phone: [facility] Work Phone: 02-06-2022 08:50-0400 Systolic blood pressure 127 mm[Hg] MACHINE ROOM ENGINEER-C Kya Posadasa MACHINE ROOM ENGINEER Work Phone: [facility] Work Phone: 02-05-2022 09:38-0400 Body weight 57.6 kg MACHINE ROOM ENGINEER-C Kya Posadasa MACHINE ROOM ENGINEER Work Phone: [facility] 01-31-2022 08:40-0400 Body mass index (BMI) [Ratio] 20.2 kg/m2 MACHINE ROOM ENGINEER-C Kya Posadasa MACHINE ROOM ENGINEER Work Phone: [facility] Work Phone: 01-31-2022 08:40-0400 Body temperature 97.7 [degF] MACHINE ROOM ENGINEER-C Kya Posadasa MACHINE ROOM ENGINEER Work Phone: [facility] Work Phone: 01-31-2022 08:40-0400 Body weight 56.75 kg MACHINE ROOM ENGINEER-C Kya Posadasa MACHINE ROOM ENGINEER Work Phone: [facility] Work Phone: 01-31-2022 08:40-0400 Diastolic blood pressure 69 mm[Hg] MACHINE ROOM ENGINEER-C Kya Posadasa MACHINE ROOM ENGINEER Work Phone: [facility] Work Phone: 01-31-2022 08:40-0400 Heart rate 66 /min MACHINE ROOM ENGINEER-C Kya Posadasa MACHINE ROOM ENGINEER Work Phone: [facility] Work Phone: 01-31-2022 08:40-0400 Respiratory rate 18 /min MACHINE ROOM ENGINEER-C Kya Posadasa MACHINE ROOM ENGINEER Work Phone: [facility] Work Phone: 01-31-2022 08:40-0400 SaO2% (BldA) [Mass fraction] 99 % MACHINE ROOM ENGINEER-C Kya Posadasa MACHINE ROOM ENGINEER Work Phone: [facility] Work Phone: 01-31-2022 08:40-0400 Systolic blood pressure 119 mm[Hg] MACHINE ROOM ENGINEER-C Kya Posadasa MACHINE ROOM ENGINEER Work Phone: [facility] Work Phone: 01-25-2022 10:29-0400 Body temperature 98.2 [degF] MACHINE ROOM ENGINEER-C Kya Posadasa MACHINE ROOM ENGINEER Work Phone: [facility] Work Phone: 01-25-2022 10:29-0400 Diastolic blood pressure 74 mm[Hg] MACHINE ROOM ENGINEER-C Kya Riveroesa MACHINE ROOM ENGINEER Work Phone: [facility] Work Phone: 01-25-2022 10:29-0400 Heart rate 69 /min MACHINE ROOM ENGINEER-C Kya Posadasa MACHINE ROOM ENGINEER Work Phone: [facility] Work Phone: 01-25-2022 10:29-0400 Respiratory rate 18 /min MACHINE ROOM ENGINEER-C Kya Posadasa MACHINE ROOM ENGINEER Work Phone: [facility] Work Phone: 01-25-2022 10:29-0400 SaO2% (BldA) [Mass fraction] 100 % MACHINE ROOM ENGINEER-C Kya Posadasa MACHINE ROOM ENGINEER Work Phone: [facility] Work Phone: 01-25-2022 10:29-0400 Systolic blood pressure 126 mm[Hg] MACHINE ROOM ENGINEER-C Kya Riveroesa MACHINE ROOM ENGINEER Work Phone: [facility] Work Phone: 01-25-2022 05:43-0400 Body weight 56.6 kg MACHINE ROOM ENGINEER-C Kya Riveroesa MACHINE ROOM ENGINEER Work Phone: [facility] Work Phone: 01-24-2022 10:30-0400 Body mass index (BMI) [Ratio] 19.7 kg/m2 MACHINE ROOM ENGINEER-C Kya Posadasa MACHINE ROOM ENGINEER Work Phone: [facility] Work Phone: 01-24-2022 10:30-0400 Body temperature 98.1 [degF] MACHINE ROOM ENGINEER-C Kya Posadasa MACHINE ROOM ENGINEER Work Phone: [facility] Work Phone: 01-24-2022 10:30-0400 Body weight 55.42 kg MACHINE ROOM ENGINEER-C Kya Posadasa MACHINE ROOM ENGINEER Work Phone: [facility] Work Phone: 01-24-2022 10:30-0400 Diastolic blood pressure 61 mm[Hg] MACHINE ROOM ENGINEER-C Kya Posadasa MACHINE ROOM ENGINEER Work Phone: [facility] Work Phone: 01-24-2022 10:30-0400 Heart rate 73 /min MACHINE ROOM ENGINEER-C Kya Posadasa MACHINE ROOM ENGINEER Work Phone: [facility] Work Phone: 01-24-2022 10:30-0400 Respiratory rate 16 /min MACHINE ROOM ENGINEER-C Kya Posadasa MACHINE ROOM ENGINEER Work Phone: [facility] Work Phone: 01-24-2022 10:30-0400 SaO2% (BldA) [Mass fraction] 95 % MACHINE ROOM ENGINEER-C Kya Posadasa MACHINE ROOM ENGINEER Work Phone: [facility] Work Phone: 01-24-2022 10:30-0400 Systolic blood pressure 101 mm[Hg] MACHINE ROOM ENGINEER-C Kya Posadasa MACHINE ROOM ENGINEER Work Phone: [facility] Work Phone: 01-24-2022 10:30-0400 Body height 167.64 cm MACHINE ROOM ENGINEER-C Kya Posadasa MACHINE ROOM ENGINEER Work Phone: [facility] Work Phone: 01-24-2022 10:30-0400 Body mass index (BMI) [Ratio] 19.7 kg/m2 MACHINE ROOM ENGINEER-C Kya Posadasa MACHINE ROOM ENGINEER Work Phone: [facility] Work Phone: 01-24-2022 10:30-0400 Body temperature 98.1 [degF] MACHINE ROOM ENGINEER-C Kya Posadasa MACHINE ROOM ENGINEER Work Phone: [facility] Work Phone: 01-24-2022 10:30-0400 Body weight 55.42 kg MACHINE ROOM ENGINEER-C Kya Posadasa MACHINE ROOM ENGINEER Work Phone: [facility] Work Phone: 01-24-2022 10:30-0400 Diastolic blood pressure 61 mm[Hg] MACHINE ROOM ENGINEER-C Kya Posadasa MACHINE ROOM ENGINEER Work Phone: [facility] Work Phone: 01-24-2022 10:30-0400 Heart rate 73 /min MACHINE ROOM ENGINEER-C Kya Posadasa MACHINE ROOM ENGINEER Work Phone: [facility] Work Phone: 01-24-2022 10:30-0400 Respiratory rate 16 /min MACHINE ROOM ENGINEER-C Kya Posadasa MACHINE ROOM ENGINEER Work Phone: [facility] Work Phone: 01-24-2022 10:30-0400 SaO2% (BldA) [Mass fraction] 95 % MACHINE ROOM ENGINEER-C Kya Posadasa MACHINE ROOM ENGINEER Work Phone: [facility] Work Phone: 01-24-2022 10:30-0400 Systolic blood pressure 101 mm[Hg] MACHINE ROOM ENGINEER-C Kya Posadasa MACHINE ROOM ENGINEER Work Phone: [facility] Work Phone: 01-23-2022 21:34-0400 Body temperature 98 [degF] MACHINE ROOM ENGINEER-C Kya Posadasa MACHINE ROOM ENGINEER Work Phone: [facility] Work Phone: 01-23-2022 21:34-0400 Diastolic blood pressure 66 mm[Hg] MACHINE ROOM ENGINEER-C Kya Gonzalez MACHINE ROOM ENGINEER Work Phone: [facility] Work Phone: 01-23-2022 21:34-0400 Heart rate 72 /min MACHINE ROOM ENGINEER-C Kya Posadasa MACHINE ROOM ENGINEER Work Phone: [facility] Work Phone: 01-23-2022 21:34-0400 Respiratory rate 18 /min MACHINE ROOM ENGINEER-C Kya Posadasa MACHINE ROOM ENGINEER Work Phone: [facility] Work Phone: 01-23-2022 21:34-0400 SaO2% (BldA) [Mass fraction] 100 % MACHINE ROOM ENGINEER-C Kya Gonzalez MACHINE ROOM ENGINEER Work Phone: [facility] Work Phone: 01-23-2022 21:34-0400 Systolic blood pressure 115 mm[Hg] MACHINE ROOM ENGINEER-C Kya Gonzalez MACHINE ROOM ENGINEER Work Phone: [facility] Work Phone: 01-23-2022 11:23-0400 Body height 167.64 cm MACHINE ROOM ENGINEER-C Kya Gonzalez MACHINE ROOM ENGINEER Work Phone: [facility] Work Phone: 01-23-2022 11:23-0400 Body weight 56.7 kg MACHINE ROOM ENGINEER-C Kya Posadasa MACHINE ROOM ENGINEER Work Phone: [facility] Work Phone: 01-22-2022 22:45-0400 Body mass index (BMI) [Ratio] 20.1 kg/m2 MACHINE ROOM ENGINEER-C Kya Posadasa MACHINE ROOM ENGINEER Work Phone: [facility] Work Phone: 01-17-2022 11:57-0400 Body temperature 98 [degF] MACHINE ROOM ENGINEER-C Kya Posadasa MACHINE ROOM ENGINEER Work Phone: [facility] Work Phone: 01-17-2022 11:57-0400 Diastolic blood pressure 70 mm[Hg] MACHINE ROOM ENGINEER-C Kya Ciesa MACHINE ROOM ENGINEER Work Phone: [facility] Work Phone: 01-17-2022 11:57-0400 Heart rate 66 /min MACHINE ROOM ENGINEER-C Kya Posadasa MACHINE ROOM ENGINEER Work Phone: [facility] Work Phone: 01-17-2022 11:57-0400 Respiratory rate 16 /min MACHINE ROOM ENGINEER-C Kya Posadasa MACHINE ROOM ENGINEER Work Phone: [facility] Work Phone: 01-17-2022 11:57-0400 SaO2% (BldA) [Mass fraction] 100 % MACHINE ROOM ENGINEER-C Kya Posadasa MACHINE ROOM ENGINEER Work Phone: [facility] Work Phone: 01-17-2022 11:57-0400 Systolic blood pressure 127 mm[Hg] MACHINE ROOM ENGINEER-C Kya Posadasa MACHINE ROOM ENGINEER Work Phone: [facility] Work Phone: 01-17-2022 11:57-0400 Body temperature 98 [degF] MACHINE ROOM ENGINEER-C Kya Posadasa MACHINE ROOM ENGINEER Work Phone: [facility] Work Phone: 01-17-2022 11:57-0400 Diastolic blood pressure 70 mm[Hg] MACHINE ROOM ENGINEER-C Kya Posadasa MACHINE ROOM ENGINEER Work Phone: [facility] Work Phone: 01-17-2022 11:57-0400 Heart rate 66 /min MACHINE ROOM ENGINEER-C Kya Posadasa MACHINE ROOM ENGINEER Work Phone: [facility] Work Phone: 01-17-2022 11:57-0400 Respiratory rate 16 /min MACHINE ROOM ENGINEER-C Kya Posadasa MACHINE ROOM ENGINEER Work Phone: [facility] Work Phone: 01-17-2022 11:57-0400 SaO2% (BldA) [Mass fraction] 100 % MACHINE ROOM ENGINEER-C Kya Posadasa MACHINE ROOM ENGINEER Work Phone: [facility] Work Phone: 01-17-2022 11:57-0400 Systolic blood pressure 127 mm[Hg] MACHINE ROOM ENGINEER-C Kya Gonzalez MACHINE ROOM ENGINEER Work Phone: [facility] Work Phone: 01-17-2022 09:41-0400 Body mass index (BMI) [Ratio] 20.2 kg/m2 MACHINE ROOM ENGINEER-C Kya Posadasa MACHINE ROOM ENGINEER Work Phone: [facility] 01-17-2022 09:41-0400 Body weight 55.33 kg MACHINE ROOM ENGINEER-C Kya Posadasa MACHINE ROOM ENGINEER Work Phone: [facility] Work Phone: 01-17-2022 09:26-0400 Body mass index (BMI) [Ratio] 20.2 kg/m2 MACHINE ROOM ENGINEER-C Kya Posadasa MACHINE ROOM ENGINEER Work Phone: [facility] Work Phone: 01-17-2022 09:26-0400 Body temperature 98.5 [degF] MACHINE ROOM ENGINEER-C Kya Gonzalez MACHINE ROOM ENGINEER Work Phone: [facility] Work Phone: 01-17-2022 09:26-0400 Body weight 55.33 kg MACHINE ROOM ENGINEER-C Kya Gonzalez MACHINE ROOM ENGINEER Work Phone: [facility] Work Phone: 01-17-2022 09:26-0400 Diastolic blood pressure 76 mm[Hg] MACHINE ROOM ENGINEER-C Kya Posadasa MACHINE ROOM ENGINEER Work Phone: [facility] Work Phone: 01-17-2022 09:26-0400 Heart rate 69 /min MACHINE ROOM ENGINEER-C Kya Posadasa MACHINE ROOM ENGINEER Work Phone: [facility] Work Phone: 01-17-2022 09:26-0400 Respiratory rate 18 /min MACHINE ROOM ENGINEER-C Kya Posadasa MACHINE ROOM ENGINEER Work Phone: [facility] Work Phone: 01-17-2022 09:26-0400 SaO2% (BldA) [Mass fraction] 100 % MACHINE ROOM ENGINEER-C Kya Gonzalez MACHINE ROOM ENGINEER Work Phone: [facility] Work Phone: 01-17-2022 09:26-0400 Systolic blood pressure 123 mm[Hg] MACHINE ROOM ENGINEER-C Kya Gonzalez MACHINE ROOM ENGINEER Work Phone: [facility] Work Phone: 01-17-2022 09:26-0400 Body mass index (BMI) [Ratio] 20.2 kg/m2 MACHINE ROOM ENGINEER-C Kya Gonzalez MACHINE ROOM ENGINEER Work Phone: [facility] Work Phone: 01-17-2022 09:26-0400 Body temperature 98.5 [degF] MACHINE ROOM ENGINEER-C Kya Gonzalez MACHINE ROOM ENGINEER Work Phone: [facility] Work Phone: 01-17-2022 09:26-0400 Body weight 55.33 kg MACHINE ROOM ENGINEER-C Kya Gonzalez MACHINE ROOM ENGINEER Work Phone: [facility] Work Phone: 01-17-2022 09:26-0400 Diastolic blood pressure 76 mm[Hg] MACHINE ROOM ENGINEER-C Kya Gonzalez MACHINE ROOM ENGINEER Work Phone: [facility] Work Phone: 01-17-2022 09:26-0400 Heart rate 69 /min MACHINE ROOM ENGINEER-C Kya Gonzalez MACHINE ROOM ENGINEER Work Phone: [facility] Work Phone: 01-17-2022 09:26-0400 Respiratory rate 18 /min MACHINE ROOM ENGINEER-C Kya Gonzalez MACHINE ROOM ENGINEER Work Phone: [facility] Work Phone: 01-17-2022 09:26-0400 SaO2% (BldA) [Mass fraction] 100 % MACHINE ROOM ENGINEER-C Kya Gonzalez MACHINE ROOM ENGINEER Work Phone: [facility] Work Phone: 01-17-2022 09:26-0400 Systolic blood pressure 123 mm[Hg] MACHINE ROOM ENGINEER-C Kya Gonzalez MACHINE ROOM ENGINEER Work Phone: [facility] Work Phone: 01-15-2022 10:00-0400 Body height 167.64 cm Kya Gonzalez Work Phone: T[facility]Jfpcagwkojnflw[facility]i [facility] Work Phone: 01-15-2022 10:00-0400 Body mass index (BMI) [Ratio] 19.85 kg/m2 Kya Gonzalez Work Phone: ZG-Vwfnfojboqpugk-Bo [facility] Work Phone: 01-15-2022 10:00-0400 Body surface area Derived from formula 1.63 m2 Kya Gonzalez Work Phone: RB-Gfzhkhmnijnvyu-Jv [facility] Work Phone: 01-15-2022 10:00-0400 Body temperature 97.5 [degF] Kya Gonzalez Work Phone: TV-Oqrxvffixwdkob-Je [facility] Work Phone: 01-15-2022 10:00-0400 Body weight 55.79 kg Kya Gonzalez Work Phone: TY-Ahcdrabrustvhu-Em [facility] Work Phone: 01-10-2022 12:27-0400 Body temperature 97.4 [degF] MACHINE ROOM ENGINEER-C Kya Gonzalez MACHINE ROOM ENGINEER Work Phone: [facility] 01-10-2022 12:27-0400 Diastolic blood pressure 61 mm[Hg] MACHINE ROOM ENGINEER-C Kya Gonzalez MACHINE ROOM ENGINEER Work Phone: [facility] 01-10-2022 12:27-0400 Heart rate 64 /min MACHINE ROOM ENGINEER-C Kya Gonzalez MACHINE ROOM ENGINEER Work Phone: [facility] 01-10-2022 12:27-0400 Respiratory rate 18 /min MACHINE ROOM ENGINEER-C Kya Gonzalez MACHINE ROOM ENGINEER Work Phone: [facility] 01-10-2022 12:27-0400 SaO2% (BldA) [Mass fraction] 98 % MACHINE ROOM ENGINEER-C Kya Gonzalez MACHINE ROOM ENGINEER Work Phone: [facility] 01-10-2022 12:27-0400 Systolic blood pressure 118 mm[Hg] MACHINE ROOM ENGINEER-C Kya Posadasa MACHINE ROOM ENGINEER Work Phone: [facility] 01-10-2022 10:32-0400 Body height 165.1 cm MACHINE ROOM ENGINEER-C Kya Posadasa MACHINE ROOM ENGINEER Work Phone: [facility] Work Phone: 01-10-2022 10:32-0400 Body mass index (BMI) [Ratio] 20.8 kg/m2 MACHINE ROOM ENGINEER-C Kya Posadasa MACHINE ROOM ENGINEER Work Phone: [facility] Work Phone: 01-10-2022 10:32-0400 Body weight 56.78 kg MACHINE ROOM ENGINEER-C Kya Posadasa MACHINE ROOM ENGINEER Work Phone: [facility] Work Phone: 01-10-2022 09:15-0400 Body mass index (BMI) [Ratio] 20.8 kg/m2 MACHINE ROOM ENGINEER-C Kya Posadasa MACHINE ROOM ENGINEER Work Phone: [facility] Work Phone: 01-10-2022 09:15-0400 Body temperature 98.1 [degF] MACHINE ROOM ENGINEER-C Kya Posadasa MACHINE ROOM ENGINEER Work Phone: [facility] Work Phone: 01-10-2022 09:15-0400 Body weight 56.78 kg MACHINE ROOM ENGINEER-C Kya Posadasa MACHINE ROOM ENGINEER Work Phone: [facility] Work Phone: 01-10-2022 09:15-0400 Diastolic blood pressure 67 mm[Hg] MACHINE ROOM ENGINEER-C Kya Posadasa MACHINE ROOM ENGINEER Work Phone: [facility] Work Phone: 01-10-2022 09:15-0400 Heart rate 67 /min MACHINE ROOM ENGINEER-C Kya Posadasa MACHINE ROOM ENGINEER Work Phone: [facility] Work Phone: 01-10-2022 09:15-0400 Respiratory rate 16 /min MACHINE ROOM ENGINEER-C Kya Posadasa MACHINE ROOM ENGINEER Work Phone: [facility] Work Phone: 01-10-2022 09:15-0400 Systolic blood pressure 121 mm[Hg] MACHINE ROOM ENGINEER-C Kya Posadasa MACHINE ROOM ENGINEER Work Phone: [facility] Work Phone: 01-10-2022 09:15-0400 Body mass index (BMI) [Ratio] 20.8 kg/m2 MACHINE ROOM ENGINEER-C Kya Posadasa MACHINE ROOM ENGINEER Work Phone: [facility] Work Phone: 01-10-2022 09:15-0400 Body temperature 98.1 [degF] MACHINE ROOM ENGINEER-C Kya Posadasa MACHINE ROOM ENGINEER Work Phone: [facility] Work Phone: 01-10-2022 09:15-0400 Body weight 56.78 kg MACHINE ROOM ENGINEER-C Kya Posadasa MACHINE ROOM ENGINEER Work Phone: [facility] Work Phone: 01-10-2022 09:15-0400 Diastolic blood pressure 67 mm[Hg] MACHINE ROOM ENGINEER-C yKa Posadasa MACHINE ROOM ENGINEER Work Phone: [facility] Work Phone: 01-10-2022 09:15-0400 Heart rate 67 /min MACHINE ROOM ENGINEER-C Kya Posadasa MACHINE ROOM ENGINEER Work Phone: [facility] Work Phone: 01-10-2022 09:15-0400 Respiratory rate 16 /min MACHINE ROOM ENGINEER-C Kya Posadasa MACHINE ROOM ENGINEER Work Phone: [facility] Work Phone: 01-10-2022 09:15-0400 Systolic blood pressure 121 mm[Hg] MACHINE ROOM ENGINEER-C Kya Posadasa MACHINE ROOM ENGINEER Work Phone: [facility] Work Phone: 01-04-2022 08:57-0400 Body temperature 98.7 [degF] MACHINE ROOM ENGINEER-C Kya Gonzalez MACHINE ROOM ENGINEER Work Phone: [facility] Work Phone: 01-04-2022 08:57-0400 Body weight 56.44 kg MACHINE ROOM ENGINEER-C Kya Posadasa MACHINE ROOM ENGINEER Work Phone: [facility] Work Phone: 01-04-2022 08:57-0400 Diastolic blood pressure 64 mm[Hg] MACHINE ROOM ENGINEER-C Kya Posadasa MACHINE ROOM ENGINEER Work Phone: [facility] Work Phone: 01-04-2022 08:57-0400 Heart rate 70 /min MACHINE ROOM ENGINEER-C Kya Posadasa MACHINE ROOM ENGINEER Work Phone: [facility] Work Phone: 01-04-2022 08:57-0400 Respiratory rate 14 /min MACHINE ROOM ENGINEER-C Kya Posadasa MACHINE ROOM ENGINEER Work Phone: [facility] Work Phone: 01-04-2022 08:57-0400 SaO2% (BldA) [Mass fraction] 93 % MACHINE ROOM ENGINEER-C Kya Gonzalez MACHINE ROOM ENGINEER Work Phone: [facility] Work Phone: 01-04-2022 08:57-0400 Systolic blood pressure 118 mm[Hg] MACHINE ROOM ENGINEER-C Kya Posadasa MACHINE ROOM ENGINEER Work Phone: [facility] Work Phone: 01-04-2022 08:57-0400 Body temperature 98.7 [degF] MACHINE ROOM ENGINEER-C Kya Posadasa MACHINE ROOM ENGINEER Work Phone: [facility] Work Phone: 01-04-2022 08:57-0400 Body weight 56.44 kg MACHINE ROOM ENGINEER-C Kya Posadasa MACHINE ROOM ENGINEER Work Phone: [facility] Work Phone: 01-04-2022 08:57-0400 Diastolic blood pressure 64 mm[Hg] MACHINE ROOM ENGINEER-C Kya Posadasa MACHINE ROOM ENGINEER Work Phone: [facility] Work Phone: 01-04-2022 08:57-0400 Heart rate 70 /min MACHINE ROOM ENGINEER-C Kya Posadasa MACHINE ROOM ENGINEER Work Phone: [facility] Work Phone: 01-04-2022 08:57-0400 Respiratory rate 14 /min MACHINE ROOM ENGINEER-C Kya Posadasa MACHINE ROOM ENGINEER Work Phone: [facility] Work Phone: 01-04-2022 08:57-0400 SaO2% (BldA) [Mass fraction] 93 % MACHINE ROOM ENGINEER-C Kya Gonzalez MACHINE ROOM ENGINEER Work Phone: [facility] Work Phone: 01-04-2022 08:57-0400 Systolic blood pressure 118 mm[Hg] MACHINE ROOM ENGINEER-C Kya Gonzalez MACHINE ROOM ENGINEER Work Phone: [facility] Work Phone: 01-03-2022 09:38-0400 Body mass index (BMI) [Ratio] 21.1 kg/m2 MACHINE ROOM ENGINEER-C Kya Gonzalez MACHINE ROOM ENGINEER Work Phone: [facility] Work Phone: 01-03-2022 09:38-0400 Body temperature 99.2 [degF] MACHINE ROOM ENGINEER-C Kya Posadasa MACHINE ROOM ENGINEER Work Phone: [facility] Work Phone: 01-03-2022 09:38-0400 Body weight 57.6 kg MACHINE ROOM ENGINEER-C Kya Posadasa MACHINE ROOM ENGINEER Work Phone: [facility] Work Phone: 01-03-2022 09:38-0400 Diastolic blood pressure 64 mm[Hg] MACHINE ROOM ENGINEER-C Kya Posadasa MACHINE ROOM ENGINEER Work Phone: [facility] Work Phone: 01-03-2022 09:38-0400 Heart rate 77 /min MACHINE ROOM ENGINEER-C Kya Posadasa MACHINE ROOM ENGINEER Work Phone: [facility] Work Phone: 01-03-2022 09:38-0400 Respiratory rate 18 /min MACHINE ROOM ENGINEER-C Kya Posadasa MACHINE ROOM ENGINEER Work Phone: [facility] Work Phone: 01-03-2022 09:38-0400 SaO2% (BldA) [Mass fraction] 99 % MACHINE ROOM ENGINEER-C Kya Posadasa MACHINE ROOM ENGINEER Work Phone: [facility] Work Phone: 01-03-2022 09:38-0400 Systolic blood pressure 123 mm[Hg] MACHINE ROOM ENGINEER-C Kya Posadasa MACHINE ROOM ENGINEER Work Phone: [facility] Work Phone: 01-03-2022 09:38-0400 Body mass index (BMI) [Ratio] 21.1 kg/m2 MACHINE ROOM ENGINEER-C Kya Posadasa MACHINE ROOM ENGINEER Work Phone: [facility] Work Phone: 01-03-2022 09:38-0400 Body temperature 99.2 [degF] MACHINE ROOM ENGINEER-C Kya Posadasa MACHINE ROOM ENGINEER Work Phone: [facility] Work Phone: 01-03-2022 09:38-0400 Body weight 57.6 kg MACHINE ROOM ENGINEER-C Kya Posadasa MACHINE ROOM ENGINEER Work Phone: [facility] Work Phone: 01-03-2022 09:38-0400 Diastolic blood pressure 64 mm[Hg] MACHINE ROOM ENGINEER-C Kya Posadasa MACHINE ROOM ENGINEER Work Phone: [facility] Work Phone: 01-03-2022 09:38-0400 Heart rate 77 /min MACHINE ROOM ENGINEER-C Kya Posadasa MACHINE ROOM ENGINEER Work Phone: [facility] Work Phone: 01-03-2022 09:38-0400 Respiratory rate 18 /min MACHINE ROOM ENGINEER-C Kya Gonzalez MACHINE ROOM ENGINEER Work Phone: [facility] Work Phone: 01-03-2022 09:38-0400 SaO2% (BldA) [Mass fraction] 99 % MACHINE ROOM ENGINEER-C Kya Gonzalez MACHINE ROOM ENGINEER Work Phone: [facility] Work Phone: 01-03-2022 09:38-0400 Systolic blood pressure 123 mm[Hg] MACHINE ROOM ENGINEER-C Kya Gonzalez MACHINE ROOM ENGINEER Work Phone: [facility] Work Phone: 12-29-2021 15:44-0400 Body height 167.64 cm Kya Gonzalez Work Phone: TO-Nubnuwmsuvhjom-Nq [facility] Work Phone: 12-29-2021 15:44-0400 Body mass index (BMI) [Ratio] 20.51 kg/m2 Kya Gonzalez Work Phone: FE-Jtttwjdracinas-Bh [facility] Work Phone: 12-29-2021 15:44-0400 Body surface area Derived from formula 1.65 m2 Kya Gonzalez Work Phone: XS-Drmvdqbppjumya-Oi [facility] Work Phone: 12-29-2021 15:44-0400 Body weight 57.63 kg Kya Gonzalez Work Phone: DS-Jhavlotwqggqvu-Bs [facility] Work Phone: 12-27-2021 08:59-0400 Body mass index (BMI) [Ratio] 20.5 kg/m2 MACHINE ROOM ENGINEER-C Kya Gonzalez MACHINE ROOM ENGINEER Work Phone: [facility] Work Phone: 12-27-2021 08:59-0400 Body temperature 98.4 [degF] MACHINE ROOM ENGINEER-C Kya Gonzalez MACHINE ROOM ENGINEER Work Phone: [facility] Work Phone: 12-27-2021 08:59-0400 Body weight 55.9 kg MACHINE ROOM ENGINEER-C Kya Gonzalez MACHINE ROOM ENGINEER Work Phone: [facility] Work Phone: 12-27-2021 08:59-0400 Diastolic blood pressure 72 mm[Hg] MACHINE ROOM ENGINEER-C Kya Gonzalez MACHINE ROOM ENGINEER Work Phone: [facility] Work Phone: 12-27-2021 08:59-0400 Heart rate 70 /min MACHINE ROOM ENGINEER-C Kya Gonzalez MACHINE ROOM ENGINEER Work Phone: [facility] Work Phone: 12-27-2021 08:59-0400 Respiratory rate 22 /min MACHINE ROOM ENGINEER-C Kya Gonzalez MACHINE ROOM ENGINEER Work Phone: [facility] Work Phone: 12-27-2021 08:59-0400 SaO2% (BldA) [Mass fraction] 96 % MACHINE ROOM ENGINEER-C Kya Gonzalez MACHINE ROOM ENGINEER Work Phone: [facility] Work Phone: 12-27-2021 08:59-0400 Systolic blood pressure 138 mm[Hg] MACHINE ROOM ENGINEER-C Kya Gonzalez MACHINE ROOM ENGINEER Work Phone: [facility] Work Phone: 12-27-2021 08:59-0400 Body mass index (BMI) [Ratio] 20.5 kg/m2 MACHINE ROOM ENGINEER-C Kya Gonzalez MACHINE ROOM ENGINEER Work Phone: [facility] Work Phone: 12-27-2021 08:59-0400 Body temperature 98.4 [degF] MACHINE ROOM ENGINEER-C Kya Gonzalez MACHINE ROOM ENGINEER Work Phone: [facility] Work Phone: 12-27-2021 08:59-0400 Body weight 55.9 kg MACHINE ROOM ENGINEER-C Kya Gonzalez MACHINE ROOM ENGINEER Work Phone: [facility] Work Phone: 12-27-2021 08:59-0400 Diastolic blood pressure 72 mm[Hg] MACHINE ROOM ENGINEER-C Kya Posadasa MACHINE ROOM ENGINEER Work Phone: [facility] Work Phone: 12-27-2021 08:59-0400 Heart rate 70 /min MACHINE ROOM ENGINEER-C Kya Posadasa MACHINE ROOM ENGINEER Work Phone: [facility] Work Phone: 12-27-2021 08:59-0400 Respiratory rate 22 /min MACHINE ROOM ENGINEER-C Kya Posadasa MACHINE ROOM ENGINEER Work Phone: [facility] Work Phone: 12-27-2021 08:59-0400 SaO2% (BldA) [Mass fraction] 96 % MACHINE ROOM ENGINEER-C Kya Posadasa MACHINE ROOM ENGINEER Work Phone: [facility] Work Phone: 12-27-2021 08:59-0400 Systolic blood pressure 138 mm[Hg] MACHINE ROOM ENGINEER-C Kya Posadasa MACHINE ROOM ENGINEER Work Phone: [facility] Work Phone: 12-20-2021 11:13-0400 Body temperature 98.3 [degF] MACHINE ROOM ENGINEER-C Kya Posadasa MACHINE ROOM ENGINEER Work Phone: [facility] Work Phone: 12-20-2021 11:13-0400 Heart rate 69 /min MACHINE ROOM ENGINEER-C Kya Posadasa MACHINE ROOM ENGINEER Work Phone: [facility] Work Phone: 12-20-2021 11:13-0400 Respiratory rate 18 /min MACHINE ROOM ENGINEER-C Kya Posadasa MACHINE ROOM ENGINEER Work Phone: [facility] Work Phone: 12-20-2021 11:13-0400 SaO2% (BldA) [Mass fraction] 98 % MACHINE ROOM ENGINEER-C Kya Riveroesa MACHINE ROOM ENGINEER Work Phone: [facility] Work Phone: 12-20-2021 11:13-0400 Body temperature 98.3 [degF] MACHINE ROOM ENGINEER-C Kya Josefaesa MACHINE ROOM ENGINEER Work Phone: [facility] Work Phone: 12-20-2021 11:13-0400 Heart rate 69 /min MACHINE ROOM ENGINEER-C Kya Posadasa MACHINE ROOM ENGINEER Work Phone: [facility] Work Phone: 12-20-2021 11:13-0400 Respiratory rate 18 /min MACHINE ROOM ENGINEER-C Kya Posadasa MACHINE ROOM ENGINEER Work Phone: [facility] Work Phone: 12-20-2021 11:13-0400 SaO2% (BldA) [Mass fraction] 98 % MACHINE ROOM ENGINEER-C Kya Posadasa MACHINE ROOM ENGINEER Work Phone: [facility] Work Phone: 12-20-2021 10:44-0400 Body height 165.1 cm MACHINE ROOM ENGINEER-C Kya Posadasa MACHINE ROOM ENGINEER Work Phone: [facility] Work Phone: 12-20-2021 10:44-0400 Body mass index (BMI) [Ratio] 20.6 kg/m2 MACHINE ROOM ENGINEER-C Kya Posadasa MACHINE ROOM ENGINEER Work Phone: [facility] Work Phone: 12-20-2021 10:44-0400 Body weight 56.24 kg MACHINE ROOM ENGINEER-C Kya Posadasa MACHINE ROOM ENGINEER Work Phone: [facility] Work Phone: 12-20-2021 10:27-0400 Body temperature 98.3 [degF] MACHINE ROOM ENGINEER-C Kya Posadasa MACHINE ROOM ENGINEER Work Phone: [facility] Work Phone: 12-20-2021 10:27-0400 Diastolic blood pressure 68 mm[Hg] MACHINE ROOM ENGINEER-C Kya Posadasa MACHINE ROOM ENGINEER Work Phone: [facility] Work Phone: 12-20-2021 10:27-0400 Heart rate 69 /min MACHINE ROOM ENGINEER-C Kya Posadasa MACHINE ROOM ENGINEER Work Phone: [facility] Work Phone: 12-20-2021 10:27-0400 Respiratory rate 18 /min MACHINE ROOM ENGINEER-C Kya Gonzalez MACHINE ROOM ENGINEER Work Phone: [facility] Work Phone: 12-20-2021 10:27-0400 SaO2% (BldA) [Mass fraction] 98 % MACHINE ROOM ENGINEER-C Kya Gonzalez MACHINE ROOM ENGINEER Work Phone: [facility] Work Phone: 12-20-2021 10:27-0400 Systolic blood pressure 118 mm[Hg] MACHINE ROOM ENGINEER-C Kya Gonzalez MACHINE ROOM ENGINEER Work Phone: [facility] Work Phone: 12-18-2021 15:55-0400 Body height 167.64 cm Kya Gonzalez Work Phone: SE-Sbgacsscralham-Pg [facility] Work Phone: 12-18-2021 15:55-0400 Body mass index (BMI) [Ratio] 19.89 kg/m2 Kya Gonzalez Work Phone: QO-Ynbtgbleqlxcbg-Mr al[facility] Work Phone: 12-18-2021 15:55-0400 Body surface area Derived from formula 1.63 m2 Kya Gonzalez Work Phone: EQ-Oavhjyqprnkptf-Pr al[facility] Work Phone: 12-18-2021 15:55-0400 Body weight 55.91 kg Kya Gonzalez Work Phone: UG-Jfnhsoewysraoz-Ef alisson Work Phone: 12-18-2021 08:53-0400 Body mass index (BMI) [Ratio] 20.2 kg/m2 MACHINE ROOM ENGINEER-C Kya Gonzalez MACHINE ROOM ENGINEER Work Phone: [facility] Work Phone: 12-18-2021 08:53-0400 Body temperature 98.4 [degF] MACHINE ROOM ENGINEER-C Kya Gonzalez MACHINE ROOM ENGINEER Work Phone: [facility] Work Phone: 12-18-2021 08:53-0400 Body weight 55.11 kg MACHINE ROOM ENGINEER-C Kya Posadasa MACHINE ROOM ENGINEER Work Phone: [facility] Work Phone: 12-18-2021 08:53-0400 Diastolic blood pressure 72 mm[Hg] MACHINE ROOM ENGINEER-C Kya Posadasa MACHINE ROOM ENGINEER Work Phone: [facility] Work Phone: 12-18-2021 08:53-0400 Heart rate 76 /min MACHINE ROOM ENGINEER-C Kya Posadasa MACHINE ROOM ENGINEER Work Phone: [facility] Work Phone: 12-18-2021 08:53-0400 Respiratory rate 18 /min MACHINE ROOM ENGINEER-C Kya Posadasa MACHINE ROOM ENGINEER Work Phone: [facility] Work Phone: 12-18-2021 08:53-0400 SaO2% (BldA) [Mass fraction] 97 % MACHINE ROOM ENGINEER-C Kya Gonzalez MACHINE ROOM ENGINEER Work Phone: [facility] Work Phone: 12-18-2021 08:53-0400 Systolic blood pressure 135 mm[Hg] MACHINE ROOM ENGINEER-C Kya Posadasa MACHINE ROOM ENGINEER Work Phone: [facility] Work Phone: 12-18-2021 08:53-0400 Body mass index (BMI) [Ratio] 20.2 kg/m2 MACHINE ROOM ENGINEER-C Kya Posadasa MACHINE ROOM ENGINEER Work Phone: [facility] Work Phone: 12-18-2021 08:53-0400 Body temperature 98.4 [degF] MACHINE ROOM ENGINEER-C Kya Posadasa MACHINE ROOM ENGINEER Work Phone: [facility] Work Phone: 12-18-2021 08:53-0400 Body weight 55.11 kg MACHINE ROOM ENGINEER-C Kya Posadasa MACHINE ROOM ENGINEER Work Phone: [facility] Work Phone: 12-18-2021 08:53-0400 Diastolic blood pressure 72 mm[Hg] MACHINE ROOM ENGINEER-C Kya Posadasa MACHINE ROOM ENGINEER Work Phone: [facility] Work Phone: 12-18-2021 08:53-0400 Heart rate 76 /min MACHINE ROOM ENGINEER-C Kya Posadasa MACHINE ROOM ENGINEER Work Phone: [facility] Work Phone: 12-18-2021 08:53-0400 Respiratory rate 18 /min MACHINE ROOM ENGINEER-C Kya Posadasa MACHINE ROOM ENGINEER Work Phone: [facility] Work Phone: 12-18-2021 08:53-0400 SaO2% (BldA) [Mass fraction] 97 % MACHINE ROOM ENGINEER-C Kya Posadasa MACHINE ROOM ENGINEER Work Phone: [facility] Work Phone: 12-18-2021 08:53-0400 Systolic blood pressure 135 mm[Hg] MACHINE ROOM ENGINEER-C Kya Posadasa MACHINE ROOM ENGINEER Work Phone: [facility] Work Phone: 12-15-2021 10:53-0400 Body height 165.1 cm MACHINE ROOM ENGINEER-C Kya Posadasa MACHINE ROOM ENGINEER Work Phone: [facility] Work Phone: 12-15-2021 10:53-0400 Body mass index (BMI) [Ratio] 20.5 kg/m2 MACHINE ROOM ENGINEER-C Kya Posadasa MACHINE ROOM ENGINEER Work Phone: [facility] Work Phone: 12-15-2021 10:53-0400 Body temperature 96.9 [degF] MACHINE ROOM ENGINEER-C Kya Posadasa MACHINE ROOM ENGINEER Work Phone: [facility] Work Phone: 12-15-2021 10:53-0400 Body weight 55.79 kg MACHINE ROOM ENGINEER-C Kya Posadasa MACHINE ROOM ENGINEER Work Phone: [facility] Work Phone: 12-15-2021 10:53-0400 Diastolic blood pressure 64 mm[Hg] MACHINE ROOM ENGINEER-C Kya Posadasa MACHINE ROOM ENGINEER Work Phone: [facility] Work Phone: 12-15-2021 10:53-0400 Heart rate 73 /min MACHINE ROOM ENGINEER-C Kya Riveroesa MACHINE ROOM ENGINEER Work Phone: [facility] Work Phone: 12-15-2021 10:53-0400 Respiratory rate 17 /min MACHINE ROOM ENGINEER-C Kya Riveroesa MACHINE ROOM ENGINEER Work Phone: [facility] Work Phone: 12-15-2021 10:53-0400 SaO2% (BldA) [Mass fraction] 99 % MACHINE ROOM ENGINEER-C Kya Posadasa MACHINE ROOM ENGINEER Work Phone: [facility] Work Phone: 12-15-2021 10:53-0400 Systolic blood pressure 131 mm[Hg] MACHINE ROOM ENGINEER-C Kya Posadasa MACHINE ROOM ENGINEER Work Phone: [facility] Work Phone: 12-15-2021 08:45-0400 Body height 170.18 [...] Phone: 12-15-2021 08:45-0400 Body temperature 97.5 [degF] Xavier Ponce LPN [facility]; [...] Standard 12-11-2021 11:34-0400 Body weight 53.97 kg MACHINE ROOM ENGINEER-C Kya Gonzalez MACHINE ROOM ENGINEER Work Phone: [facility] Work Phone: 12-10-2021 18:23-0400 Heart rate 70 /min MACHINE ROOM ENGINEER-C Kya Gonzalez MACHINE ROOM ENGINEER Work Phone: [facility] Work Phone: 12-10-2021 18:23-0400 Respiratory rate 16 /min MACHINE ROOM ENGINEER-C Kya Gonzalez MACHINE ROOM ENGINEER Work Phone: [facility] Work Phone: 12-10-2021 18:23-0400 SaO2% (BldA) [Mass fraction] 99 % MACHINE ROOM ENGINEER-C Kya Gonzalez MACHINE ROOM ENGINEER Work Phone: [facility] Work Phone: 12-10-2021 16:40-0400 Body height 167.64 cm MACHINE ROOM ENGINEER-C Kya Posadasa MACHINE ROOM ENGINEER Work Phone: [facility] Work Phone: 12-10-2021 16:40-0400 Body mass index (BMI) [Ratio] 19.7 kg/m2 MACHINE ROOM ENGINEER-C Kya Posadasa MACHINE ROOM ENGINEER Work Phone: [facility] Work Phone: 12-10-2021 16:40-0400 Body temperature 97.8 [degF] MACHINE ROOM ENGINEER-C Kya Posadasa MACHINE ROOM ENGINEER Work Phone: [facility] Work Phone: 12-10-2021 16:40-0400 Body weight 55.33 kg MACHINE ROOM ENGINEER-C Kya Posadasa MACHINE ROOM ENGINEER Work Phone: [facility] Work Phone: 12-10-2021 16:40-0400 Diastolic blood pressure 70 mm[Hg] MACHINE ROOM ENGINEER-C Kya Posadasa MACHINE ROOM ENGINEER Work Phone: [facility] Work Phone: 12-10-2021 16:40-0400 Systolic blood pressure 144 mm[Hg] MACHINE ROOM ENGINEER-C Kya Posadasa MACHINE ROOM ENGINEER Work Phone: [facility] Work Phone: 12-07-2021 14:56-0400 Body weight 54.54 kg MACHINE ROOM ENGINEER-C Kya Posadasa MACHINE ROOM ENGINEER Work Phone: [facility] Work Phone: 12-07-2021 14:56-0400 Body weight 54.54 kg MACHINE ROOM ENGINEER-C Kya Posadasa MACHINE ROOM ENGINEER Work Phone: [facility] Work Phone: 12-07-2021 14:25-0400 Body temperature 98.2 [degF] MACHINE ROOM ENGINEER-C Kya Posadasa MACHINE ROOM ENGINEER Work Phone: [facility] Work Phone: 12-07-2021 14:25-0400 Diastolic blood pressure 76 mm[Hg] MACHINE ROOM ENGINEER-C Kya Posadasa MACHINE ROOM ENGINEER Work Phone: [facility] Work Phone: 12-07-2021 14:25-0400 Heart rate 75 /min MACHINE ROOM ENGINEER-C Kya Riveroesa MACHINE ROOM ENGINEER Work Phone: [facility] Work Phone: 12-07-2021 14:25-0400 Respiratory rate 14 /min MACHINE ROOM ENGINEER-C Kya Riveroesa MACHINE ROOM ENGINEER Work Phone: [facility] Work Phone: 12-07-2021 14:25-0400 SaO2% (BldA) [Mass fraction] 100 % MACHINE ROOM ENGINEER-C Kya Posadasa MACHINE ROOM ENGINEER Work Phone: [facility] Work Phone: 12-07-2021 14:25-0400 Systolic blood pressure 132 mm[Hg] MACHINE ROOM ENGINEER-C Kya Riveroesa MACHINE ROOM ENGINEER Work Phone: [facility] Work Phone: 12-07-2021 14:25-0400 Body temperature 98.2 [degF] MACHINE ROOM ENGINEER-C Kya Posadasa MACHINE ROOM ENGINEER Work Phone: [facility] Work Phone: 12-07-2021 14:25-0400 Diastolic blood pressure 76 mm[Hg] MACHINE ROOM ENGINEER-C Kya Posadasa MACHINE ROOM ENGINEER Work Phone: [facility] Work Phone: 12-07-2021 14:25-0400 Heart rate 75 /min MACHINE ROOM ENGINEER-C Kya Posadasa MACHINE ROOM ENGINEER Work Phone: [facility] Work Phone: 12-07-2021 14:25-0400 Respiratory rate 14 /min MACHINE ROOM ENGINEER-C Kya Riveroesa MACHINE ROOM ENGINEER Work Phone: [facility] Work Phone: 12-07-2021 14:25-0400 SaO2% (BldA) [Mass fraction] 100 % MACHINE ROOM ENGINEER-C Kya Posadasa MACHINE ROOM ENGINEER Work Phone: [facility] Work Phone: 12-07-2021 14:25-0400 Systolic blood pressure 132 mm[Hg] MACHINE ROOM ENGINEER-C Kya Gonzalez MACHINE ROOM ENGINEER Work Phone: [facility] Work Phone: 12-05-2021 15:28-0400 Diastolic blood pressure 91 mm[Hg] Kya Posadasa Other Phone: [facility] 12-05-2021 15:28-0400 Heart rate 69 /min Kya Posadasa Other Phone: [facility] 12-05-2021 15:28-0400 Respiratory rate 18 /min Kya Posadasa Other Phone: [facility] 12-05-2021 15:28-0400 SaO2% (BldA) [Mass fraction] 98 % Kya Gonzalez Other Phone: [facility] 12-05-2021 15:28-0400 Systolic blood pressure 133 mm[Hg] Kya Gonzalez Other Phone: [facility] 12-05-2021 13:05-0400 Body height 170.1 cm Kya Gonzalez Other Phone: [facility] 12-05-2021 13:05-0400 Body temperature 96.62 [degF] Kya Gonzalez Other Phone: [facility] 12-05-2021 13:05-0400 Body weight 55.8 kg Kya Gonzalez Other Phone: [facility] 12-04-2021 15:57-0400 Body height 167.64 cm Kya Posadasa Work Phone: JO-Ukijdnsbdxdpnf-Fi [facility] Work Phone: 12-04-2021 15:57-0400 Body mass index (BMI) [Ratio] 19.91 kg/m2 Kya Posadasa Work Phone: JX-Xtxslbgdwvneus-Wd [facility] Work Phone: 12-04-2021 15:57-0400 Body surface area Derived from formula 1.63 m2 Kya Gonzalez Work Phone: OW-Ryqqmokbkvwcsb-Zv al[facility] Work Phone: 12-04-2021 15:57-0400 Body weight 55.97 kg Kya Gonzalez Work Phone: FP-Osjzfsafltnixi-Da ron Work Phone: 11-29-2021 13:06-0500 Body height 167.64 cm Kya Gonzalez Work Phone: ID-Drjktjiklldkqh-Xk yoly Work Phone: 11-29-2021 13:06-0500 Body mass index (BMI) [Ratio] 20.19 kg/m2 Kya Gonzalez Work Phone: RR-Ktjjxpxkfsoehp-Wh yoly Work Phone: 11-29-2021 13:06-0500 Body surface area Derived from formula 1.64 m2 Kya Gonzalez Work Phone: WD-Zufjilqoqappkz-Fn idfermin Work Phone: 11-29-2021 13:06-0500 Body temperature 97.5 [degF] Kya Gonzalez Work Phone: EL-Abykvljcbpsefg-Rz idfermin Work Phone: 11-29-2021 13:06-0500 Body weight 56.75 kg Kya Gonzalez Work Phone: ZW-Fvehmjazoweuqe-Mq idfermin Work Phone: 11-07-2021 17:58-0500 SaO2% (BldA) [Mass fraction] 100 % Kya Gonzalez Work Phone: PY-Vloaaubxhcutpg-Mj ron Work Phone: 11-07-2021 15:25-0500 SaO2% (BldA) [Mass fraction] 100 % Kya Gonzalez Work Phone: YI-Vrcqnkzyrryfng-Ih al[facility] Work Phone: 11-01-2021 08:16-0500 Body height 167.64 cm Kya Gonzalez Work Phone: PI-Kjglkvopfaojil-Ku burban Work Phone: 11-01-2021 08:16-0500 Body mass index (BMI) [Ratio] 19.09 kg/m2 Kya Gonzalez Work Phone: IV-Cjdhapmsiszdyu-Ag burban Work Phone: 11-01-2021 08:16-0500 Body surface area Derived from formula 1.6 m2 Kya Gonzalez Work Phone: LC-Wsxjvomamiarxr-Yb bur[facility] Work Phone: 11-01-2021 08:16-0500 Body temperature 95.5 [degF] Kya Gonzalez Work Phone: CZ-Kftosshsuruicl-Yw burban Work Phone: 11-01-2021 08:16-0500 Body weight 53.64 kg Kya Gonzalez Work Phone: BN-Iwjeyqqeffheiu-Il burmarlys Work Phone: 10-16-2021 12:58-0500 Body height 167.64 cm Kya Gonzalez Work Phone: SV-Zlxcjsoqchtfox-Ui alisson Work Phone: 10-16-2021 12:58-0500 Body mass index (BMI) [Ratio] 20.34 kg/m2 Kya Gonzalez Work Phone: CK-Qshoomzhxaycym-Pv alisson Work Phone: 10-16-2021 12:58-0500 Body surface area Derived from formula 1.64 m2 Kya Gonzalez Work Phone: DW-Npepsuimnoriwk-Ki alisson Work Phone: 10-16-2021 12:58-0500 Body weight 57.15 kg Kya Gonzalez Work Phone: CU-Odjlmzoapivrhf-Ec alisson Work Phone: 09-23-2021 00:06-0500 Body weight 58.96 kg MACHINE ROOM ENGINEER-C Kya Gonzalez MACHINE ROOM ENGINEER Work Phone: [facility] Work Phone: 08-23-2021 07:11-0500 Body mass index (BMI) [Ratio] 22.3 kg/m2 MACHINE ROOM ENGINEER-C Kya Gonzalez MACHINE ROOM ENGINEER Work Phone: [facility] Work Phone: 08-23-2021 07:11-0500 Body temperature 98 [degF] MACHINE ROOM ENGINEER-C Kya Gonzalez MACHINE ROOM ENGINEER Work Phone: [facility] Work Phone: 08-23-2021 07:11-0500 Body weight 58.96 kg MACHINE ROOM ENGINEER-C yKa Gonzalez MACHINE ROOM ENGINEER Work Phone: [facility] Work Phone: 08-23-2021 07:11-0500 Diastolic blood pressure 88 mm[Hg] MACHINE ROOM ENGINEER-C Kya Gonzalez MACHINE ROOM ENGINEER Work Phone: [facility] Work Phone: 08-23-2021 07:11-0500 Heart rate 95 /min MACHINE ROOM ENGINEER-C Kya Gonzalez MACHINE ROOM ENGINEER Work Phone: [facility] Work Phone: 08-23-2021 07:11-0500 Systolic blood pressure 152 mm[Hg] MACHINE ROOM ENGINEER-C Kya Gonzalez MACHINE ROOM ENGINEER Work Phone: [facility] Work Phone: 08-15-2021 09:45-0500 Body height 170.18 cm Caridad Gomez LPN [facility]; [facility] Work Phone: 08-15-2021 09:45-0500 Body mass index (BMI) [Ratio] 20.09 kg/m2 Caridad Gomez LPN [facility]; [facility] Work Phone: 08-15-2021 09:45-0500 Body surface area Derived from formula 1.67 m2 Caridad Gomez CAN MARKER [facility]; [facility] Work Phone: 08-15-2021 09:45-0500 Body temperature 97.8 [degF] Caridad Gomez LPN [facility]; [facility] Work Phone: Comment on above: Method: Temporal 08-15-2021 09:45-0500 Body weight 58.17 kg Caridad Gomez LPN [facility]; [facility] Work Phone: 08-15-2021 09:45-0500 Diastolic blood pressure 90 mm[Hg] Caridad Gomez LPN [facility]; [facility] Work Phone: Comment on above: Patient Position: Sitting; Cuff Location : Left Arm; Cuff Size: Standard 08-15-2021 09:45-0500 Heart rate 88 /min Caridad Gomez LPN [facility]; [facility] Work Phone: Comment on above: Pattern: Regular 08-15-2021 09:45-0500 Respiratory rate 16 /min Caridad Gomez LPN [facility]; [facility] Work Phone: Comment on above: Pattern: Unlabored 08-15-2021 09:45-0500 SaO2% (BldA) [Mass fraction] 99 % Caridad Gomez LPN [facility]; [facility] Work Phone: Comment on above: Room air 08-15-2021 09:45-0500 Systolic blood pressure 170 mm[Hg] Caridad Gomez LPN [facility]; [facility] Work Phone: Comment on above: Patient Position: Sitting; Cuff Location : Left Arm; Cuff Size: Standard 07-26-2021 10:47-0400 Body height 170.18 cm Xavier Kris CAN MARKER [facility]; [facility] Work Phone: 07-26-2021 10:47-0400 Body mass index (BMI) [Ratio] 20.42 kg/m2 Xavier Ponce LPN [facility]; [facility] Work Phone: 07-26-2021 10:47-0400 Body surface area Derived from formula 1.69 m2 Xvaier Ponce LPN [facility]; [facility] [...] Body mass index (BMI) [Ratio] 20 kg/m2 MACHINE ROOM ENGINEER-C Kya Ciesa MACHINE ROOM ENGINEER Work Phone: [facility] Work Phone: 12-02-2020 13:20-0500 BMI (Body Mass [...] air 11-28-2020 14:34-0500 Body temperature 98.6 [degF] MACHINE ROOM ENGINEER-C Kya Ciesa MACHINE ROOM ENGINEER Work Phone: [facility] Work Phone: 11-28-2020 14:34-0500 Body weight 58.05 kg MACHINE ROOM ENGINEER-C Kya Ciesa MACHINE ROOM ENGINEER Work Phone: [facility] Work Phone: 11-28-2020 14:34-0500 Diastolic blood pressure 84 mm[Hg] MACHINE ROOM ENGINEER-C Kya Ciesa MACHINE ROOM ENGINEER Work Phone: [facility] Work Phone: 11-28-2020 14:34-0500 Heart rate 76 /min MACHINE ROOM ENGINEER-C Kya Ciesa MACHINE ROOM ENGINEER Work Phone: [facility] Work Phone: 11-28-2020 14:34-0500 Respiratory rate 16 /min MACHINE ROOM ENGINEER-C Kya Ciesa MACHINE ROOM ENGINEER Work Phone: [facility] Work Phone: 11-28-2020 14:34-0500 SaO2% (BldA) [Mass fraction] 99 % MACHINE ROOM ENGINEER-C Kya Ciesa MACHINE ROOM ENGINEER Work Phone: [facility] Work Phone: 11-28-2020 14:34-0500 Systolic blood pressure 149 mm[Hg] MACHINE ROOM ENGINEER-C Kya Ciesa MACHINE ROOM ENGINEER Work Phone: [facility] Work Phone: 08-29-2020 14:50-0500 BMI (Body Mass Index) 23.02 kg/m2 Xavier Ponce LPN [facility]; [facility] Work Phone: 08-29-2020 14:50-0500 Body weight 66.68 kg Xavier Ponce LPN [facility]; [facility] Work Phone: 08-29-2020 14:50-0500 BSA (Body Surface Area) 1.77 m2 [facility]; [facility] Work Phone: 08-29-2020 14:50-0500 Height 170.18 cm [facility]; [facility] Work Phone: 06-29-2020 13:46-0400 BMI (Body Mass Index) 23.02 kg/m2 Kya Gonzalez DIRECTOR [employer] Work Phone: [facility] Work Phone: 06-29-2020 13:46-0400 Body Temperature 96.9 [degF] Kya Gonzalez DIRECTOR [employer] Work Phone: [facility] Work Phone: 06-29-2020 13:46-0400 Body weight 66.68 kg Kya Gonzalez [employer]OR [employer] Work Phone: [facility] Work Phone: 06-29-2020 13:46-0400 BP Diastolic 80 mm[Hg] Kya Gonzalez DIRECTOR [employer] Work Phone: [facility] Work Phone: Comment on above: Patient Position: Supine; Cuff Location: Right Arm; Cuff Size: Standard 06-29-2020 13:46-0400 BP Systolic 132 mm[Hg] Kya Gonzalez DIRECTOR [employer] Work Phone: [facility] Work Phone: Comment on above: Patient Position: Supine; Cuff Location: Right Arm; Cuff Size: Standard 06-29-2020 13:46-0400 BSA (Body Surface Area) 1.77 m2 Kya Gonzalez [employer]OR [employer] Work Phone: [facility] Work Phone: 06-29-2020 13:46-0400 Height 170.18 cm Kya Gonzalez [employer]OR [employer] Work Phone: [facility] Work Phone: 06-29-2020 13:46-0400 Pulse (Heart Rate) 82 /min Kya Gonzalez DIRECTOR [employer] Work Phone: [facility] Work Phone: Comment on above: Pattern: Regular 06-29-2020 13:46-0400 Pulse Oximetry 100 % Kya Gonzalez [facility] Work Phone: Comment on above: Room air 06-29-2020 13:46-0400 SaO2% (BldA) [Mass fraction] 100 % Kya Gonzalez DIRECTOR [employer] Work Phone: [facility]; [facility] Work Phone: Comment on above: Room air 04-14-2020 13:54-0400 BMI (Body Mass Index) 23.02 kg/m2 Caridad Jason EATONN [facility] Work Phone: 04-14-2020 13:54-0400 Body weight 66.68 kg Caridad Gomez LPN [facility] Work Phone: 04-14-2020 13:54-0400 BSA (Body Surface Area) 1.77 m2 Caridad Jason CAN MARKER [facility] Work Phone: 04-14-2020 13:54-0400 Height 170.18 cm Caridad Gomez CAN MARKER [facility] Work Phone: 12-14-2019 11:11-0400 Body Temperature 97.7 [degF] Kya Gonzalez DIRECTOR [employer] Work Phone: [facility] Work Phone: 12-14-2019 10:50-0400 BMI (Body Mass Index) 23.02 kg/m2 Xavier Ponce LPN [facility] Work Phone: 12-14-2019 10:50-0400 Body weight 66.68 kg Xavier Ponce LPN [facility] Work Phone: 12-14-2019 10:50-0400 BSA (Body Surface Area) 1.77 m2 Xavier Ponce LPN [facility] Work Phone: 12-14-2019 10:50-0400 Height 170.18 cm Xavier Ponce LPN [facility] Work Phone: 06-15-2019 17:18-0400 BMI (Body Mass Index) 20.26 kg/m2 Rachel Brooks MQ-Avvpwghdbmmfhc-Gc min [place] [address] Work Phone: 06-15-2019 17:18-0400 Body weight 56.93 kg Rachel Brooks MG-Otolaryngolog y-Ad min [place] [address] Work Phone: 06-15-2019 17:18-0400 BP Diastolic 77 mm[Hg] Rachel Brooks MG-Otolaryngolog y-Ad min [place] [address] Work Phone: 06-15-2019 17:18-0400 BP Systolic 145 mm[Hg] Rachel Brooks MG-Otolaryngolog y-Ad min [place] [address] Work Phone: 06-15-2019 17:18-0400 BSA (Body Surface Area) 1.64 m2 Rachel Brooks BF-Azfyzxhhglopax-Vq min [place] [address] Work Phone: 06-15-2019 17:18-0400 Height 167.64 cm Rachel Brooks MG-Otolaryngolog y-Ad min [place] [address] Work Phone: 06-15-2019 17:18-0400 Pulse (Heart Rate) 82 /min Rachel Brooks MG-Otolaryngo logy-Ad min [place] [address] Work Phone: 06-15-2019 17:18-0400 Respiratory Rate 18 /min Rachel Brooks MG-Otolaryngolo gy-Ad min [place] [address] Work Phone: 01-19-2019 11:54-0400 BMI (Body Mass Index) 22.84 kg/m2 Rachel Brooks TA-Tfjqpjvuesacwe-Xl min [place] [address] Work Phone: 01-19-2019 11:54-0400 BP Diastolic 87 mm[Hg] Rachel Brooks MG-Otolaryngolog y-Ad min [place] [address] Work Phone: 01-19-2019 11:54-0400 BP Systolic 180 mm[Hg] Racheldillan Brooks MG-Otolaryngolog y-Ad min [place] [address] Work Phone: 01-19-2019 11:54-0400 BSA (Body Surface Area) 1.73 m2 Rachel Brooks SF-Nsghbbkkovfbrv-Im min [place] [id number] Work Phone: 01-19-2019 11:54-0400 Height 167.64 cm Rachel Brooks MG-Otolaryngolog y-Ad min [place] [id number] Work Phone: 01-19-2019 11:54-0400 Pulse (Heart Rate) 91 /min Racheldillan Brooks MG-Otolaryngo logy-Ad min [place] [id number] Work Phone: 01-19-2019 11:54-0400 Weight 64.18 kg Rachel Brooks MG-Otolaryngolog y-Ad min [place] [id number] Work Phone: 01-02-2019 11:29-0400 BMI (Body Mass Index) 23.02 kg/m2 Xavier Ponce [facility] Work Phone: 01-02-2019 11:29-0400 Body Temperature 99 [degF] Xavier Ponce [facility] Work Phone: Comment on above: Method: 01-02-2019 11:29-0400 Body weight 66.68 kg Xavier Ponce [facility] Work Phone: 01-02-2019 11:29-0400 BP Diastolic 82 mm[Hg] Xavier Ponce [facility] Work Phone: Comment on above: Patient Position: Sitting; Cuff Location : Left Arm; Cuff Size: Standard 01-02-2019 11:29-0400 BP Systolic 144 mm[Hg] Xavier Ponce [facility] Work Phone: Comment on above: Patient Position: Sitting; Cuff Location : Left Arm; Cuff Size: Standard 01-02-2019 11:29-0400 BSA (Body Surface Area) 1.77 m2 Xavier Ponce LPN [facility] Work Phone: 01-02-2019 11:29-0400 Height 170.18 cm Xavier Ponce LPN [facility] Work Phone: 01-02-2019 11:29-0400 Pulse (Heart Rate) 80 /min Xavier Ponce LPN [facility] Work Phone: Comment on above: Pattern: Regular 01-02-2019 11:29-0400 Pulse Oximetry 98 % Kya Riveromeganchioma [facility] Work Phone: Comment on above: Room air 01-02-2019 11:29-0400 Respiratory Rate 17 /min Xavier Ponce LPN [facility] Work Phone: Comment on above: Pattern: Unlabored 01-02-2019 11:29-0400 SaO2% (BldA) [Mass fraction] 98 % Xavier Ponce LPN [facility]; [facility] Work Phone: Comment on above: Room air 01-02-2019 11:29-0400 Weight 66.68 kg Kya Gonzalez [facility] Internal Medicine Work Phone: 12-15-2018 14:23-0400 BMI (Body Mass Index) 23.02 kg/m2 Xavier Ponce LPN [facility] Internal Medicine Work Phone: 12-15-2018 14:23-0400 Body Temperature 98.7 [degF] Xavier Ponce LPN [facility] Internal Medicine Work Phone: Comment on above: Method: Temporal 12-15-2018 14:23-0400 Body weight 66.68 kg Xavier Ponce LPN [facility] Internal Medicine Work Phone: 12-15-2018 14:23-0400 BP Diastolic 82 mm[Hg] Xavier Ponce LPN [facility] Internal Medicine Work Phone: Comment on above: Patient Position: Sitting; Cuff Location : Left Arm; Cuff Size: Standard 12-15-2018 14:23-0400 BP Systolic 160 mm[Hg] Xavier Ponce LPN [facility] Internal Medicine Work Phone: [...] 14:23-0400 Pulse Oximetry 98 % Kya Monica [facility] Internal Medicine Work Phone: Comment on above: Room air 12-15-2018 14:23-0400 Respiratory Rate 18 /min Xavier Ponce LPN [facility] Work Phone: Comment on above: Pattern: Unlabored 12-15-2018 14:23-0400 SaO2% (BldA) [Mass fraction] 98 % Xavier Ponce LPN [facility]; [facility] Work Phone: Comment on above: Room air 12-15-2018 14:23-0400 Weight 66.68 kg Kya Gonzalez [facility] Internal Medicine Work Phone: Encounters Encounter Date Encounter Type Care Provider Facility Start: 04-15-2025 ambulatory Sadie Santiago Facility :[facility] Start: 03-31-2025 ambulatory James Stephens Facili ty:[facility] Start: 03-31-2025 Non-patient / Non-visit Dr. Loretta villar MD -[facility] Start: 03-31-2025 End: 03-31-2025 ambulatory Sadie Santiago MACHINE ROOM ENGINEER-C Work Phone: -Pulmonary Services/Neurology Start: 03-31-2025 End: 03-31-[address] Jamse Stephens DO -Pulmonary Services/Neurology Work Phone: Start: 03-31-2025 End: 03-31-2025 ambulatory James Stephens Facility:[facility] Start: 03-25-2025 ambulatory Santiago Sellers Facility: [facility] Start: 03-25-[address] Santiago Sellers DO -Speech Therapy Work Phone: Start: 03-03-2025 ambulatory James Tejeda ty:[facility] Start: 03-03-2025 Non-patient / Non-visit Dr. Loretta villar MD -[facility] Start: 03-03-2025 End: 03-03-2025 ambulatory Sadie Santiago MACHINE ROOM ENGINEER-C Work Phone: [facility] Work Phone: Start: 03-03-2025 End: 03-03-[address] 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; Cancer of oral cavity (Multi); Tracheostomy dependence (Multi); Acquired hypothyroidism; Oropharyngeal dysphagia; Adverse effect of radiation therapy, subsequent encounter; Open wound of neck, subsequent encounter Start: 03-01-2025 End: 03-01-2025 ambulatory [facility] Ambulatory Start: 02-11-2025 End: 02-11-2025 Patient encounter procedure Elliott Akhtar DO [facility] G[facility]ology Work Phone: Start: 02-11-2025 End: 02-11-2025 ambulatory Sadie Santiago Facility:[facility] Start: 02-02-2025 End: 02-20-[address] Santiago Sellers DO -Nutritional Services Work Phone: Start: 02-02-2025 End: 02-20-2025 ambulatory Sadie Santiago MACHINE ROOM ENGINEER-C Work Phone: [facility] Work Phone: Start: 02-02-2025 End: 02-02-[address] Santiago Sellers DO -[facility] Work Phone: Start: 02-02-2025 End: 02-02-2025 ambulatory Sadie Santiago MACHINE ROOM ENGINEER-C Work Phone: [facility] Work Phone: Start: 01-20-[address] Santiago Sellers DO -Speech Therapy Work Phone: Start: 01-05-2025 End: 01-05-[address] Quincy Simpson MD -[facility] Work Phone: Start: 01-05-2025 End: 01-05-2025 ambulatory Sadie Benton Facility:[facility] Start: 12-30-[address] Santiago Sellers DO -Speech Therapy Work Phone: Start: 12-29-2024 End: 12-29-2024 ambulatory Sadie Santiago MACHINE ROOM ENGINEER-C Work Phone: [facility] Work Phone: Start: 12-29-2024 End: 12-29-[address] [facility] Start: 12-29-2024 End: 12-29-2024 ambulatory Sadie Jack Facility:[facility] Start: 12-17-2024 End: 12-17-[address] Quincy Simpson MD Work Phone: [facility] Work Phone: Start: 12-17-2024 End: 12-17-[address] Santiago Sellers DO -Radiology, [facility] Work Phone: Start: 12-17-2024 End: 12-17-2024 ambulatory Santiago Sellers Facility:[facility] Start: 12-16-[address] Santiago Sellers DO -Speech Therapy Work Phone: Start: 10-21-2024 ambulatory Sadie Jack Facility :[facility] Start: 10-21-2024 Non-patient / Non-visit Elliott Mijares nd DO -[facility] Start: 10-21-2024 End: 10-21-2024 Admission to same day surgery center Elliott Akhtar -Endoscopy Work Phone: Start: 10-21-2024 End: 10-21-2024 ambulatory [facility] Facility:[facility] Start: 10-20-2024 Encounter for other preprocedural examination Loretta Jade [facility] Start: 09-28-2024 End: 09-28-[address] Quincy Simpson MD -[facility] Work Phone: Start: 09-28-2024 End: 09-28-2024 ambulatory Sadie Santiago Facility:[facility] Start: 09-15-2024 ambulatory Loretta Jade Facilit y:[facility] Start: 09-15-2024 Non-patient / Non-visit Loretta Jade MACHINE ROOM ENGINEER-C -[facility] Start: 09-15-2024 End: 09-15-[address] Quincy Simpson MD -Cat Scan, [facility] Work Phone: Start: 09-15-2024 End: 09-15-2024 ambulatory Loretta Jade Facility:[facility] Start: 09-07-2024 End: 09-07-[address] 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 Quincy Simpson MD -Cat Scan, [facility] Work Phone: Start: 08-25-2024 End: 08-25-2024 ambulatory Quincy Simpson Facility:[facility] Start: 08-14-2024 End: 08-14-2024 ambulatory Sadie Benton Facility:[facility] Start: 08-06-2024 End: 08-22-2024 ambulatory [facility] Facility:[facility] Start: 08-06-2024 End: 08-06-2024 ambulatory [facility] Facility:[facility] Start: 06-24-2024 End: 06-24-2024 ambulatory [facility] Facility:[facility] Start: 05-19-2024 ambulatory Quincy Simpson Facili ty:[facility] Start: 05-13-2024 End: 05-13-2024 ambulatory [facility] Facility:[facility] Start: 05-06-2024 End: 05-06-2024 ambulatory [facility] Facility:[facility] Start: 04-13-2024 End: 04-13-2024 Office outpatient visit 25 minutes Rachel Brooks MD Work Phone: [facility] Comment on above: Oropharyngeal dyspha lizzie (Primary Dx); Sensorineural hearing loss (SNHL) of both ears; Acquired hypothyroidism; Cancer of oral cavity (Multi); 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); Cancer of oral cavity (CMS/HCC) Start: 08-30-2023 End: 08-30-2023 Patient encounter procedure MACHINE ROOM ENGINEER-C Kya Gonzalez MACHINE ROOM ENGINEER Work Phone: [facility] Gastro[facility] Work Phone: Start: 08-05-2023 End: 08-05-2023 Patient encounter procedure MACHINE ROOM ENGINEER-C Kya Gonzalez MACHINE ROOM ENGINEER Work Phone: [facility]-Radiology, [facility] Work Phone: Start: 08-05-2023 End: 08-05-2023 Patient encounter procedure MACHINE ROOM ENGINEER-C Kya Gonzalez MACHINE ROOM ENGINEER Work Phone: [facility] Work Phone: Start: 07-29-2023 End: 07-29-2023 ambulatory MACHINE ROOM ENGINEER-C Kya Gonzalez MACHINE ROOM ENGINEER Work Phone: [facility] Work Phone: Start: 07-29-2023 End: 07-29-2023 Patient encounter procedure MACHINE ROOM ENGINEER-C Kya Gonzalez MACHINE ROOM ENGINEER Work Phone: [facility] Work Phone: Start: 07-22-2023 End: 07-24-2023 Office outpatient visit 15 minutes Sadie Santiago DIRECTOR [employer] Work Phone: [facility] Start: 07-22-2023 Sadie Santiago DIRECTOR [employer] Work Phone: [facility] Start: 07-10-2023 Registered Recurring MACHINE ROOM ENGINEER-C Kya Gonzalez MACHINE ROOM ENGINEER Work Phone: [facility]-Speech Therapy Work Phone: Start: 05-22-2023 End: 05-22-2023 Patient encounter procedure MACHINE ROOM ENGINEER-C Kya Gonzalez MACHINE ROOM ENGINEER Work Phone: [facility] Work Phone: Start: 04-25-2023 Patient encounter procedure Kya Gonzalez Work Phone: [facility]-Fchppnlvxxhsoa-Samjj Work Phone: Start: 04-25-2023 ambulatory Ms. Kya Gonzalez Facili ty:[id number] Start: 04-12-2023 End: 04-12-2023 Sadie Santiago DIRECTOR [employer] Work Phone: [facility] Start: 04-10-2023 Non-patient / Non-visit MACHINE ROOM ENGINEER-C Mack glory [place] MACHINE ROOM ENGINEER Work Phone: [facility] Start: 04-10-2023 Registered Recurring MACHINE ROOM ENGINEER-C Kya Posadasa MACHINE ROOM ENGINEER Work Phone: [facility]-Speech Therapy Work Phone: Start: 04-10-2023 End: 04-10-2023 ambulatory MACHINE ROOM ENGINEER-C Kya Gonzalez MACHINE ROOM ENGINEER Work Phone: [facility] Work Phone: Start: 04-10-2023 End: 04-10-2023 Discharged Recurring MACHINE ROOM ENGINEER-C Kya Posadasa MACHINE ROOM ENGINEER Work Phone: [facility] Work Phone: Start: 04-04-2023 Patient encounter procedure Kya Gonzalez Work Phone: [facility] Work Phone: Start: 04-04-2023 ambulatory Ms. Kya Lotti ty:[id number] Start: 04-03-2023 Non-patient / Non-visit MACHINE ROOM ENGINEER-C M glroy Ciesa MACHINE ROOM ENGINEER Work Phone: [facility] Start: 03-27-2023 Non-patient / Non-visit MACHINE ROOM ENGINEER-C M glory Ciesa MACHINE ROOM ENGINEER Work Phone: [facility] Start: 03-20-2023 Non-patient / Non-visit MACHINE ROOM ENGINEER-C M glory Ciesa MACHINE ROOM ENGINEER Work Phone: [facility] Start: 03-20-2023 End: 03-22-2023 ambulatory MACHINE ROOM ENGINEER-C Kya Posadasa MACHINE ROOM ENGINEER Work Phone: [facility] Work Phone: Start: 03-20-2023 End: 03-22-2023 Discharged Recurring MACHINE ROOM ENGINEER-C Kya Gonzalez MACHINE ROOM ENGINEER Work Phone: [facility] Work Phone: Start: 03-14-2023 Patient encounter procedure Kya Gonzalez Work Phone: DI-Sgnptbaqkbswoa-[facility]ais Work Phone: Start: 03-14-2023 [address] Mr[address] Segundo Chamorro Facility:[id number] Start: 03-13-2023 Non-patient / Non-visit MACHINE ROOM ENGINEER-C M glory Ciesa MACHINE ROOM ENGINEER Work Phone: After Hours [facility] Start: 03-06-2023 Non-patient / Non-visit MACHINE ROOM ENGINEER-C M glory Ciesa MACHINE ROOM ENGINEER Work Phone: After Hours [facility] Start: 03-06-2023 Office outpatient ne w 30 minutes Kya Posadasa Work Phone: PY-Gbjdrshtpnzzib-Qjjcd Work Phone: Start: 03-06-[address] Rachel Brooks Facility:[id number] Start: 02-27-2023 Non-patient / Non-visit MACHINE ROOM ENGINEER-C M glory Ciesa MACHINE ROOM ENGINEER Work Phone: After Hours [facility] Start: 02-25-2023 Office outpatient vi sit 15 minutes Kya Posadasa Work Phone: OV-Vyufodwvobwhaf-Yigraji rg Work Phone: Start: 02-25-2023 Patient encounter procedure Kya Posadasa Work Phone: HP-Qshrshekhnrszb-Jgnncmi rg Work Phone: Start: 02-25-[address] Rachel Brooks Facility:[id number] Start: 02-20-2023 Non-patient / Non-visit MACHINE ROOM ENGINEER-C Mack Riveroesa MACHINE ROOM ENGINEER Work Phone: [facility] Start: 02-20-2023 End: 02-20-2023 ambulatory MACHINE ROOM ENGINEER-C Kya Posadasa MACHINE ROOM ENGINEER Work Phone: [facility] Work Phone: Start: 02-20-2023 End: 02-20-2023 Discharged Recurring MACHINE ROOM ENGINEER-C Kya Riveroesa MACHINE ROOM ENGINEER Work Phone: [facility] Healing [facility] Start: 02-13-2023 Non-patient / Non-visit MACHINE ROOM ENGINEER-C M glory Ciesa MACHINE ROOM ENGINEER Work Phone: [facility] Start: 02-06-2023 Non-patient / Non-visit MACHINE ROOM ENGINEER-C Mack Gonzalez MACHINE ROOM ENGINEER Work Phone: [facility] Start: 01-31-2023 End: 01-31-2023 Patient encounter procedure MACHINE ROOM ENGINEER-C Kya Gonzalez MACHINE ROOM ENGINEER Work Phone: [facility] Start: 01-30-2023 Non-patient / Non-visit MACHINE ROOM ENGINEER-C Mack Gonzalez MACHINE ROOM ENGINEER Work Phone: [facility] Start: 01-30-2023 Registered Recurring MACHINE ROOM ENGINEER-C Kya Gonzalez MACHINE ROOM ENGINEER [facility] Phone[facility] Start: 01-28-[address] Rachel Brooks Facility:[id number] Start: 01-28-2023 End: 01-28-2023 ambulatory MACHINE ROOM ENGINEER-C Kya Gonzalez MACHINE ROOM ENGINEER Work Phone: [facility] Work Phone: Start: 01-28-2023 End: 01-28-2023 Patient encounter procedure Kya Gonzalez Work Phone: [facility] Start: 01-23-2023 Non-patient / Non-visit MACHINE ROOM ENGINEER-C Mack Gonzalez MACHINE ROOM ENGINEER Work Phone: [facility] Start: 01-21-2023 End: 01-21-2023 Sadie Santiago CNP Work Phone: [facility] Start: 01-16-2023 ambulatory Sadie Santiago CNP [facility] Start: 01-16-2023 Non-patient / Non-visit MACHINE ROOM ENGINEER-C Mack Gonzalez MACHINE ROOM ENGINEER Work Phone: [facility] Start: 01-16-2023 End: 01-21-2023 Office outpatient visit 15 minutes Sadie Santiago CNP Work Phone: [facility] Start: 01-16-2023 Sadie Santiago DIRECTOR [employer] Work Phone: [facility] Start: 01-16-2023 End: 01-20-2023 ambulatory MACHINE ROOM ENGINEER-C Kya Gonzalez MACHINE ROOM ENGINEER Work Phone: [facility] Work Phone: Start: 01-16-2023 End: 01-20-2023 Discharged Recurring MACHINE ROOM ENGINEER-C Kya Gonzalez MACHINE ROOM ENGINEER Work Phone: [facility] Start: 01-09-2023 Non-patient / Non-visit MACHINE ROOM ENGINEER-C M glory Ciesa MACHINE ROOM ENGINEER Work Phone: [facility] Start: 01-02-2023 Non-patient / Non-visit MACHINE ROOM ENGINEER-C M glory Ciesa MACHINE ROOM ENGINEER Work Phone: [facility] Start: 12-26-2022 Registered Recurring MACHINE ROOM ENGINEER-C Kya Posadasa MACHINE ROOM ENGINEER Work Phone: [facility]-Speech Therapy Start: 12-26-2022 Non-patient / Non-visit MACHINE ROOM ENGINEER-C M glory Ciesa MACHINE ROOM ENGINEER Work Phone: [facility] Start: 12-12-2022 Non-patient / Non-visit MACHINE ROOM ENGINEER-C M glory Ciesa MACHINE ROOM ENGINEER Work Phone: [facility] Start: 12-12-2022 End: 12-21-2022 ambulatory MACHINE ROOM ENGINEER-C Kya Posadasa MACHINE ROOM ENGINEER Work Phone: [facility] Work Phone: Start: 12-12-2022 End: 12-21-2022 Discharged Recurring MACHINE ROOM ENGINEER-C Kya Cimegana MACHINE ROOM ENGINEER Work Phone: [facility] Start: 12-05-2022 Non-patient / Non-visit MACHINE ROOM ENGINEER-C M glory Ciesa MACHINE ROOM ENGINEER Work Phone: [facility] Start: 11-28-2022 Non-patient / Non-visit MACHINE ROOM ENGINEER-C M glory Ciesa MACHINE ROOM ENGINEER Work Phone: [facility] Start: 11-21-2022 Registered Recurring MACHINE ROOM ENGINEER-C Kya Gonzalez MACHINE ROOM ENGINEER Work Phone: [facility] Start: 11-21-2022 End: 11-21-2022 Patient encounter procedure MACHINE ROOM ENGINEER-C Kya Gonzalez MACHINE ROOM ENGINEER Work Phone: [facility] Start: 11-14-2022 Non-patient / Non-visit MACHINE ROOM ENGINEER-C M glory Posadasa MACHINE ROOM ENGINEER Work Phone: [facility] Start: 11-14-2022 End: 11-20-2022 ambulatory MACHINE ROOM ENGINEER-C Kya Gonzalez MACHINE ROOM ENGINEER Work Phone: [facility] Work Phone: Start: 11-14-2022 End: 11-20-2022 Discharged Recurring MACHINE ROOM ENGINEER-C Kya Gonzalez MACHINE ROOM ENGINEER Work Phone[facility] Start: 11-07-2022 Non-patient / Non-visit MACHINE ROOM ENGINEER-C M glory Posadasa MACHINE ROOM ENGINEER Work Phone: [facility] Start: 11-01-2022 End: 11-01-2022 Patient encounter procedure MACHINE ROOM ENGINEER-C Kya Gonzalez MACHINE ROOM ENGINEER Work Phone: [facility] Start: 10-24-2022 Non-patient / Non-visit MACHINE ROOM ENGINEER-C M glory Posadasa MACHINE ROOM ENGINEER Work Phone: [facility] Start: 10-10-2022 Non-patient / Non-visit MACHINE ROOM ENGINEER-C M glory Posadasa MACHINE ROOM ENGINEER Work Phone: [facility] Start: 10-10-2022 End: 10-23-2022 ambulatory MACHINE ROOM ENGINEER-C Kya Gonzalez MACHINE ROOM ENGINEER Work Phone: [facility] Work Phone: Start: 10-10-2022 End: 10-23-2022 Discharged Recurring MACHINE ROOM ENGINEER-C Kya Gonzalez MACHINE ROOM ENGINEER Work Phone: [facility] Start: 10-03-2022 Non-patient / Non-visit MACHINE ROOM ENGINEER-C M glory Ciesa MACHINE ROOM ENGINEER Work Phone: [facility] Start: 09-26-2022 Registered Recurring MACHINE ROOM ENGINEER-C Kya Posadasa MACHINE ROOM ENGINEER Work Phone: [facility]-Speech Therapy Start: 09-19-2022 Non-patient / Non-visit MACHINE ROOM ENGINEER-C M glory Ciesa MACHINE ROOM ENGINEER Work Phone: [facility] Start: 09-19-2022 End: 09-22-2022 Discharged Recurring MACHINE ROOM ENGINEER-C Kya Posadasa MACHINE ROOM ENGINEER Work Phone: [facility] Start: 09-12-2022 Non-patient / Non-visit MACHINE ROOM ENGINEER-C M glory Ciesa MACHINE ROOM ENGINEER Work Phone: [facility] Start: 09-05-2022 Non-patient / Non-visit MACHINE ROOM ENGINEER-C M glory Ciesa MACHINE ROOM ENGINEER Work Phone: [facility] Start: 08-29-2022 Non-patient / Non-visit MACHINE ROOM ENGINEER-C M glory Ciesa MACHINE ROOM ENGINEER Work Phone: [facility] Start: 08-22-2022 Non-patient / Non-visit MACHINE ROOM ENGINEER-C M glory Ciesa MACHINE ROOM ENGINEER Work Phone: [facility] Start: 08-22-2022 End: 08-22-2022 Discharged Recurring MACHINE ROOM ENGINEER-C Kya Katharinaa MACHINE ROOM ENGINEER Work Phone: [facility] Start: 08-15-2022 Non-patient / Non-visit MACHINE ROOM ENGINEER-C M glory Ciesa MACHINE ROOM ENGINEER Work Phone: [facility] Start: 08-08-2022 Non-patient / Non-visit MACHINE ROOM ENGINEER-C M glory Ciesa MACHINE ROOM ENGINEER Work Phone: [facility] Start: 08-07-2022 Chart Update Kya Gonzalez Work Phone: DO-Qqphmbnoxhiwqh-[facility] [id number] Work Phone: Start: 08-01-2022 Non-patient / Non-visit MACHINE ROOM ENGINEER-C M glory Ciesa MACHINE ROOM ENGINEER Work Phone: [facility] Start: 07-31-2022 End: 07-31-2022 Patient encounter procedure MACHINE ROOM ENGINEER-C Kya Posadasa MACHINE ROOM ENGINEER Work Phone: [facility] Start: 07-24-2022 End: 07-24-2022 ambulatory MACHINE ROOM ENGINEER-C Kya Posadasa MACHINE ROOM ENGINEER Work Phone: [facility] Work Phone: Start: 07-24-2022 End: 07-24-2022 Patient encounter procedure MACHINE ROOM ENGINEER-C Kya Posadasa MACHINE ROOM ENGINEER Work Phone: [facility] Start: 07-18-2022 Non-patient / Non-visit MACHINE ROOM ENGINEER-C M glory Ciesa MACHINE ROOM ENGINEER Work Phone: [facility] Start: 07-18-2022 End: 07-23-2022 ambulatory MACHINE ROOM ENGINEER-C Kya Posadasa MACHINE ROOM ENGINEER Work Phone: [facility] Work Phone: Start: 07-18-2022 End: 07-23-2022 Discharged Recurring MACHINE ROOM ENGINEER-C Kya Posadasa MACHINE ROOM ENGINEER Work Phone: [facility] Start: 07-04-2022 Registered Recurring MACHINE ROOM ENGINEER-C Kya Posadasa MACHINE ROOM ENGINEER Work Phone: [facility]-Speech Therapy Start: 07-04-2022 Non-patient / Non-visit MACHINE ROOM ENGINEER-C M glory Ciesa MACHINE ROOM ENGINEER Work Phone: [facility] Start: 06-27-2022 Non-patient / Non-visit MACHINE ROOM ENGINEER-C M glory Ciesa MACHINE ROOM ENGINEER Work Phone: [facility] Start: 06-21-2022 AUDIT Kya Gonzalez Work Phone: OX-Bwztgomjdzauqx-Sorvn [place] [address] Work Phone: Start: 06-21-2022 Chart Update Kya Posadasa Work Phone: JF-Lsfnuqsrzfelxg-Rqkxr [place] [address] Work Phone: Start: 06-20-2022 Non-patient / Non-visit MACHINE ROOM ENGINEER-C Mack Posadasa MACHINE ROOM ENGINEER Work Phone: [facility] Start: 06-20-2022 Registered Recurring MACHINE ROOM ENGINEER-C Kya Josefamegana MACHINE ROOM ENGINEER Work Phone: [facility] Start: 06-20-2022 End: 2022 Discharged Recurring MACHINE ROOM ENGINEER-C Kya Posadasa MACHINE ROOM ENGINEER Work Phone: [facility] Start: 06-20-2022 Registered Recurring MACHINE ROOM ENGINEER-C Kya Josefamgeana MACHINE ROOM ENGINEER Work Phone: [facility] Start: 06-18-[address] Rachel Brooks Facility:[id number] Start: 06-18-2022 Office outpatient vi sit 15 minutes Kya Browning Josefameganchioma Work Phone: CY-Uhhormqjuwqvno-Sfyqj Work Phone: Start: 06-15-2022 End: 06-15-2022 ambulatory MACHINE ROOM ENGINEER-C Kya Josefamegana MACHINE ROOM ENGINEER Work Phone: [facility] Work Phone: Start: 06-15-2022 End: 06-15-2022 Patient encounter procedure MACHINE ROOM ENGINEER-C Kya Posadasa MACHINE ROOM ENGINEER Work Phone: [facility] Start: 06-13-2022 Non-patient / Non-visit MACHINE ROOM ENGINEER-C Mack Riveroesa MACHINE ROOM ENGINEER Work Phone: [facility] Start: 06-06-2022 Non-patient / Non-visit MACHINE ROOM ENGINEER-C M glory Ciesa MACHINE ROOM ENGINEER Work Phone: [facility] Start: 05-30-2022 Non-patient / Non-visit MACHINE ROOM ENGINEER-C M glory Ciesa MACHINE ROOM ENGINEER Work Phone: [facility] Start: 05-23-2022 Non-patient / Non-visit MACHINE ROOM ENGINEER-C M glory Ciesa MACHINE ROOM ENGINEER Work Phone: [facility] Start: 05-23-2022 End: 05-23-2022 Patient encounter procedure MACHINE ROOM ENGINEER-C Kya Gonzalez MACHINE ROOM ENGINEER Work Phone: [facility] Start: 05-23-2022 Registered Recurring MACHINE ROOM ENGINEER-C Kya Josefadanya MACHINE ROOM ENGINEER Work Phone: [facility] Start: 05-23-2022 End: 05-23-2022 ambulatory MACHINE ROOM ENGINEER-C Kya Josefadanya MACHINE ROOM ENGINEER Work Phone: [facility] Work Phone: Start: 05-23-2022 End: 05-23-2022 Discharged Recurring MACHINE ROOM ENGINEER-C Kya Posadaschioma MACHINE ROOM ENGINEER Work Phone: [facility] Start: 05-16-2022 AUDIT Kya Gonzalez Work Phone: CM-Oqfbkhkebehwrg-Xwzdeao Work Phone: Start: 05-16-2022 Non-patient / Non-visit MACHINE ROOM ENGINEER-C M glory Ciesa MACHINE ROOM ENGINEER Work Phone: [facility] Start: 05-14-[address] Rachel Brooks Facility:[id number] Start: 05-14-2022 Office outpatient vi sit 15 minutes Kya Gonzalez Work Phone: ME-Whjucisbewywum-Klrou Work Phone: Start: 05-09-2022 Non-patient / Non-visit MACHINE ROOM ENGINEER-C M glory Ciesa MACHINE ROOM ENGINEER Work Phone: [facility] Start: 05-08-2022 Registered Recurring MACHINE ROOM ENGINEER-C Kya Posadasa MACHINE ROOM ENGINEER Work Phone: [facility] Start: 05-02-2022 Non-patient / Non-visit MACHINE ROOM ENGINEER-C M glory Ciesa MACHINE ROOM ENGINEER Work Phone: [facility] Start: 04-30-2022 End: 04-30-2022 Patient encounter procedure MACHINE ROOM ENGINEER-C Kya Posadasa MACHINE ROOM ENGINEER Work Phone: [facility] Start: 04-25-2022 Non-patient / Non-visit MACHINE ROOM ENGINEER-C Mack holder Ciesa MACHINE ROOM ENGINEER Work Phone: [facility] Start: 04-17-2022 Registered Recurring MACHINE ROOM ENGINEER-C Kya Posadasa MACHINE ROOM ENGINEER Work Phone: [facility] Start: 04-16-2022 Postop follow up vis it related to original px Kya Browning Josefameganchioma Work Phone: MH-Styxwbngomvuhj-Vhikn Work Phone: Start: 04-13-2022 End: 04-13-2022 Patient encounter procedure MACHINE ROOM ENGINEER-C Kya Posadasa MACHINE ROOM ENGINEER Work Phone: [facility] Start: 04-11-2022 Chart Update Archana Josefameganchioma Work Phone: RM-Hwuxsamyysatgo-Rraivha Work Phone: Start: 03-28-2022 End: 04-22-2022 Discharged Recurring MACHINE ROOM ENGINEER-C Kya Posadasa MACHINE ROOM ENGINEER Work Phone: [facility] Start: 03-28-2022 Registered Recurring MACHINE ROOM ENGINEER-C Kya Posadasa MACHINE ROOM ENGINEER Work Phone: [facility] Start: 03-27-2022 End: 03-27-2022 Patient encounter procedure MACHINE ROOM ENGINEER-C Kya Posadasa MACHINE ROOM ENGINEER Work Phone: [facility] Start: 03-14-2022 Registered Recurring MACHINE ROOM ENGINEER-C Kya Gonzalez MACHINE ROOM ENGINEER Work Phone: [facility] Start: 02-27-2022 End: 02-27-2022 Patient encounter procedure MACHINE ROOM ENGINEER-C Kya Gonzalez MACHINE ROOM ENGINEER Work Phone: [facility] Start: 02-26-2022 End: 02-26-2022 Annotation/Addendum Kya Gonzalez Work Phone: [facility] Start: 02-26-2022 End: 02-26-2022 Sadie Santiago DIRECTOR GLOBAL MED[employer] AFFAIRS Work Phone: [facility] Start: 02-22-2022 Review Kya Gonzalez Work Phone: [facility] Start: 02-16-2022 End: 02-16-2022 Annotation/Addendum Kya Gonzalez Work Phone: [facility] Start: 02-16-2022 End: 02-16-2022 Sadie Santiago DIRECTOR [employer]LO[employer]FFAIRS Work Phone: [facility] Start: 02-15-2022 End: 02-15-2022 Office outpatient visit 25 minutes Kya Gonzalez Work Phone: [facility] Start: 02-14-2022 End: 02-14-2022 Patient encounter procedure MACHINE ROOM ENGINEER-C Kya Gonzalez MACHINE ROOM ENGINEER Work Phone: [facility] Start: 02-12-2022 Office outpatient vi sit 15 minutes Kya Gonzalez Work Phone: GC-Gohosfvdstvqol-Kiljq [place] [address] Work Phone: Start: 02-12-2022 Patient encounter procedure Kya Gonzalez Work Phone: DN-Lxdqqmhjnxbphp-Netom Work Phone: Start: 02-06-2022 Registered Recurring MACHINE ROOM ENGINEER-C Kya Gonzalez MACHINE ROOM ENGINEER Work Phone: [facility] Start: 02-06-2022 End: 02-06-2022 Patient encounter procedure MACHINE ROOM ENGINEER-C Kya Posadaschioma MACHINE ROOM ENGINEER Work Phone: [facility] Start: 01-31-2022 End: 01-31-2022 Patient encounter procedure MACHINE ROOM ENGINEER-C Kya Posadashcioma MACHINE ROOM ENGINEER Work Phone: [facility] Start: 01-25-2022 Non-patient / Non-visit MACHINE ROOM ENGINEER-C M glory Posadasa MACHINE ROOM ENGINEER Work Phone: [facility] Start: 01-25-2022 Registered Recurring MACHINE ROOM ENGINEER-C Kya Gonzalez MACHINE ROOM ENGINEER Work Phone: [facility] Start: 01-24-2022 Non-patient / Non-visit MACHINE ROOM ENGINEER-C M glory Ciesa MACHINE ROOM ENGINEER Work Phone: [facility] Start: 01-24-2022 End: 01-24-2022 Patient encounter procedure MACHINE ROOM ENGINEER-C Kya Posadaschioma MACHINE ROOM ENGINEER Work Phone: [facility] Start: 01-23-2022 Non-patient / Non-visit MACHINE ROOM ENGINEER-C M glory Ciesa MACHINE ROOM ENGINEER Work Phone: [facility] Start: 01-23-2022 Registered Recurring MACHINE ROOM ENGINEER-C Kya Gonzalez MACHINE ROOM ENGINEER Work Phone: [facility] Start: 01-22-2022 Non-patient / Non-visit MACHINE ROOM ENGINEER-C M glory Ciesa MACHINE ROOM ENGINEER Work Phone: [facility] Start: 01-22-2022 End: 01-25-2022 Evaluation and management of inpatient MACHINE ROOM ENGINEER-C Kya Gonzalez MACHINE ROOM ENGINEER Work Phone: [facility]Pro[facility] Start: 01-17-2022 Registered Recurring MACHINE ROOM ENGINEER-C Kya Gonzalez MACHINE ROOM ENGINEER Work Phone: [facility] Start: 01-17-2022 End: 01-17-2022 Patient encounter procedure MACHINE ROOM ENGINEER-C Kya Gonzalez MACHINE ROOM ENGINEER Work Phone: [facility] Start: 01-15-2022 Patient encounter procedure Kya Gonzalez Work Phone: EA-Orjmiinozihvyc-Yksyz Work Phone: Start: 01-15-2022 Postop follow up vis it related to original px Kya Gonzalez Work Phone: HJ-Oyitwxxpntmdwt-Nqgok [place] [address] Work Phone: Start: 01-12-2022 Registered Recurring MACHINE ROOM ENGINEER-C Kya Gonzalez MACHINE ROOM ENGINEER Work Phone: [facility] Start: 01-10-2022 Registered Recurring MACHINE ROOM ENGINEER-C Kya Gonzalez MACHINE ROOM ENGINEER Work Phone: [facility] Start: 01-10-2022 End: 01-10-2022 Patient encounter procedure MACHINE ROOM ENGINEER-C Kya Gonzalez MACHINE ROOM ENGINEER Work Phone: [facility] Start: 01-10-2022 End: 01-10-2022 Patient encounter procedure MACHINE ROOM ENGINEER-C Kya Gonzalez MACHINE ROOM ENGINEER Work Phone: [facility] Start: 01-08-2022 End: 01-08-2022 Patient encounter procedure MACHINE ROOM ENGINEER-C Kay Gonzalez MACHINE ROOM ENGINEER Work Phone: [facility]Rad[facility], [facility] Start: 01-04-2022 End: 01-04-2022 Patient encounter procedure MACHINE ROOM ENGINEER-C Kya Gonzalez MACHINE ROOM ENGINEER Work Phone: [facility] Start: 01-03-2022 End: 01-03-2022 Patient encounter procedure MACHINE ROOM ENGINEER-C Kya Gonzalez MACHINE ROOM ENGINEER Work Phone: [facility] Start: 12-29-2021 Patient encounter procedure Kya Gonzalez Work Phone: FD-Daebavxlsrxcqx-Xbpckta Work Phone: Start: 12-27-2021 End: 12-27-2021 Patient encounter procedure MACHINE ROOM ENGINEER-C Kya Gonzalez MACHINE ROOM ENGINEER Work Phone: [facility] Start: 12-22-2021 Registered Recurring MACHINE ROOM ENGINEER-C Kya Posadasa MACHINE ROOM ENGINEER Work Phone: [facility] Start: 12-21-2021 Registered Recurring MACHINE ROOM ENGINEER-C Kya Posadasa MACHINE ROOM ENGINEER Work Phone: [facility] Start: 12-20-2021 Registered Recurring MACHINE ROOM ENGINEER-C Kya Posadasa MACHINE ROOM ENGINEER Work Phone: [facility] Start: 12-20-2021 End: 12-20-2021 Patient encounter procedure MACHINE ROOM ENGINEER-C Kya Posadasa MACHINE ROOM ENGINEER Work Phone: [facility] Start: 12-19-2021 End: 12-19-2021 Annotation/Addendum Kya Gonzalez Work Phone: [facility] Start: 12-19-2021 End: 12-19-2021 Sadie Jack DIRECTOR [employer]LOBAL MED[employer] AFFAIRS Work Phone: [facility] Start: 12-18-2021 Postop follow up vis it related to original px Kya Gonzalez Work Phone: XO-Ikuwhwivkhotbv-Xkgjx Work Phone: Start: 12-18-2021 Non-patient / Non-visit MACHINE ROOM ENGINEER-C Mack Gonzalez MACHINE ROOM ENGINEER Work Phone: [facility] Start: 12-18-2021 End: 12-18-2021 Patient encounter procedure MACHINE ROOM ENGINEER-C Kya Posadasa MACHINE ROOM ENGINEER Work Phone: [facility]Cardi[facility] Services Start: 12-18-2021 End: 12-18-2021 Patient encounter procedure MACHINE ROOM ENGINEER-C Kya Josefamegana MACHINE ROOM ENGINEER Work Phone: [facility] Start: 12-15-2021 Non-patient / Non-visit MACHINE ROOM ENGINEER-C Mack Gonzalez MACHINE ROOM ENGINEER Work Phone: [facility] Start: 12-15-2021 Telephone encounter Kya Browning Cie Work Phone: YX-Ozeefxijxnjskc-Qpuwrmi Work Phone: Start: 12-15-2021 End: 12-15-2021 Emergency department patient visit MACHINE ROOM ENGINEER-C Kya Riverodanya MACHINE ROOM ENGINEER Work Phone: [facility]Emergency Department Start: 12-15-2021 End: 12-15-2021 Office outpatient visit 25 minutes Kya Gonzalez Work Phone: [facility] Start: 12-14-2021 Non-patient / Non-visit MACHINE ROOM ENGINEER-C M glory Posadasa MACHINE ROOM ENGINEER Work Phone: [facility] Start: 12-11-2021 End: 12-21-2021 Discharged Recurring MACHINE ROOM ENGINEER-C Kya Josefadanya MACHINE ROOM ENGINEER Work Phone: [facility] Start: 12-11-2021 Registered Recurring MACHINE ROOM ENGINEER-C Kya Posadaschioma MACHINE ROOM ENGINEER Work Phone: [facility] Start: 12-10-2021 End: 12-10-2021 Emergency department patient visit MACHINE ROOM ENGINEER-C Kya Posadaschioma MACHINE ROOM ENGINEER Work Phone: [facility]Emergency Department Start: 12-08-2021 Non-patient / Non-visit MACHINE ROOM ENGINEER-C M glory Posadasa MACHINE ROOM ENGINEER Work Phone: [facility] Start: 12-07-2021 AUDIT Archana Josefameganchioma Work Phone: WK-Pesnwfumadpdek-Zahna [place] [address] Work Phone: Start: 12-07-2021 Non-patient / Non-visit MACHINE ROOM ENGINEER-C M glory Katharinaa MACHINE ROOM ENGINEER Work Phone: [facility] Start: 12-07-2021 Registered Recurring MACHINE ROOM ENGINEER-C Kya Posadasa MACHINE ROOM ENGINEER Work Phone: [facility] Start: 12-07-2021 End: 12-07-2021 Patient encounter procedure MACHINE ROOM ENGINEER-C Kya Gonzalez MACHINE ROOM ENGINEER Work Phone: [facility] Start: 12-06-2021 AUDIT Kya Gonzalez Work Phone: AP-Hfdrshrcbgkuhc-Kzstt [place] [address] Work Phone: Start: 12-05-2021 End: 12-05-2021 Emergency department patient visit Avinash Otero [facility] Adult [facility] [address] Start: 12-05-2021 End: 12-05-2021 Emergency department patient visit MACHINE ROOM ENGINEER-C Kya Gonzalez MACHINE ROOM ENGINEER Work Phone: [facility] Start: 12-04-2021 Patient encounter procedure Kya Gonzalez Work Phone: NN-Pkumexphspkrpg-Wvcyt Work Phone: Start: 11-29-2021 Patient encounter procedure Kya Gonzalez Work Phone: RT-Gzmqkpknfvqxye-Lbsiukc Work Phone: Start: 11-29-2021 Postop follow up vis it related to original px Kya Gonzalez Work Phone: CL-Pbbxkwawqsqdyv-Aojtx [place] [address] Work Phone: Start: 11-21-2021 Chart Update Kya Gonzalez Work Phone: YU-Qrahosdrfuvtzf-Pfijbqy e Work Phone: Start: 11-20-2021 End: 11-20-2021 Departed Referred MACHINE ROOM ENGINEER-C Kya Gonzalez MACHINE ROOM ENGINEER Work Phone: [place] [address] Start: 11-20-2021 Registered Referred MACHINE ROOM ENGINEER-C Kya Gonzalez MACHINE ROOM ENGINEER Work Phone: [place] [address] Start: 11-07-2021 Chart Update Kya Gonzalez Work Phone: FI-Aeomlducfiibmc-Uhfjj [address] Work Phone: Start: 11-07-2021 Chart Update Kya Gonzalez Work Phone: YW-Xxosehsqmjzqaf-Vzhsw [address] Work Phone: Start: 11-07-2021 End: 11-18-2021 Evaluation and management of inpatient Rachel Morales 5 Rm [id number] Start: 11-03-2021 Chart Update Kya Gonzalez Work Phone: VX-Qcnvxeakpopnsk-Jcyym [place] [address] Work Phone: Start: 11-03-2021 Chart Update Kya Gonzalez Work Phone: IP-Wboheihisxpimd-Gzsmmoa e Work Phone: Start: 11-01-2021 AUDIT Kya Gonzalez Work Phone: MJ-Cbjyymjfpvnrmh-Zqywjbx e Work Phone: Start: 11-01-2021 FUV, Provider: Willie Smith, Status: Pen, Time: 8:00 AM Kya Gonzalez Work Phone: GZ-Evuciosstefakm-Iub for Perioperative Med Work Phone: Start: 11-01-2021 Office outpatient vi sit 25 minutes Kya Gonzalez Work Phone: ZG-Lmhgjukmchxqtm-Qrgzvku n Work Phone: Start: 10-31-2021 AUDIT Kya Gonzalez Work Phone: LX-Oesqdboltgeyds-Faj for Perioperative Med Work Phone: Start: 10-25-2021 Chart Update Kya Gonzalez Work Phone: JO-Ucptzveveeurtn-Koihb [place] [address] Work Phone: Start: 10-16-2021 Office outpatient vi sit 40 minutes Kya Gonzalez Work Phone: LE-Klwzvcaixrrppv-Snrqx [place] [address] Work Phone: Start: 10-16-2021 Patient encounter procedure Kya Gonzalez Work Phone: NQ-Jlzbmzfttfyjez-Pnrnh Work Phone: Start: 08-23-2021 Patient encounter procedure MACHINE ROOM ENGINEER-C Kya Posadaschioma MACHINE ROOM ENGINEER Work Phone: [facility] Start: 08-23-2021 Non-patient / Non-visit MACHINE ROOM ENGINEER-C Mack mauricioy Monica MACHINE ROOM ENGINEER Work Phone: [facility] Start: 08-23-2021 End: 09-22-2021 Discharged Recurring MACHINE ROOM ENGINEER-C Kya Posadaschioma MACHINE ROOM ENGINEER Work Phone: [facility] Start: 08-15-2021 End: 08-15-2021 Office outpatient visit 25 minutes Kya Katharinachioma DIRECTOR [employer] Work Phone: [facility] Start: 07-26-2021 End: 07-26-2021 Office outpatient visit 15 minutes Kya Posadaschioma DIRECTOR [employer] Work Phone: [facility] Start: 03-13-2021 Review Kya Posadaschioma DIRECTOR [employer]FFAIRS Work Phone: [facility] Start: 03-13-2021 End: 03-13-2021 Office outpatient visit 25 minutes Kya Gonzalez DIRECTOR [employer] Work Phone: [facility] Start: 12-02-2020 End: 12-02-2020 Office outpatient visit 15 minutes Kya Gonzalez [facility] Start: 11-28-2020 Review Kya Brady sruthi [facility] Start: 08-29-2020 Review Kya Brady sruthi [facility] Start: 08-29-2020 End: 08-29-2020 Office outpatient visit 15 minutes Kya Gonzalez [facility] Start: 06-29-2020 End: 06-29-2020 Office outpatient visit 15 minutes Kya Gonzalez [facility] Start: 06-29-2020 Review Kya Yipens sr[facility]i [facility] Start: 05-19-2020 End: 05-19-2020 Lab Order Kya Gonzalez [facility] Start: 05-19-2020 End: 05-19-2020 Sadie Santiago CNP Work Phone: [facility] Start: 04-14-2020 End: 04-14-2020 Office outpatient visit 15 minutes Kya Gonzalez [facility] Start: 12-14-2019 End: 12-14-2019 Office outpatient visit 15 minutes Kya Gonzalez [facility] Start: 06-15-2019 Patient encounter procedure Rachel Brooks IZ-Ldcrbtpyeuipjq-Fhikx [place] [address] Work Phone: Start: 04-13-2019 Patient encounter procedure Rachel Brooks SY-Cdnxflntsvehoq-Acklb [place] [address] Work Phone: Start: 03-16-2019 Patient encounter procedure Rachel Brooks RS-Ffjevkzvtnewoc-Nmquc [place] [address] Work Phone: Start: 01-19-2019 Patient encounter procedure Rachel Brooks EH-Stytjfmlsscnhk-Heaqu [place] [address] Work Phone: Start: 01-05-2019 End: 01-05-2019 Annotation/Addendum Kya Gonzalez [facility] Start: 01-05-2019 End: 01-05-2019 Sadie Santiago CNP Work Phone: [facility] Start: 01-02-2019 End: 01-02-2019 Annotation/Addendum Kay Gonzalez [facility] Start: 01-02-2019 End: 01-02-2019 Sadie Santiago CNP Work Phone: [facility] Start: 01-02-2019 End: 01-02-2019 Office outpatient visit 25 minutes Kya Gonzalez [facility] Start: 01-02-2019 Review Kya Gonzalez Comprehens sruthi [facility] Start: 12-19-2018 End: 12-19-2018 Annotation/Addendum Kya Gonzalez [facility] Start: 12-19-2018 End: 12-19-2018 Sadie Santiago CNP Work Phone: [facility] Start: 12-15-2018 Review Kya Gonzalez Comprehens sruthi [facility] Start: 12-15-2018 End: 12-15-2018 Office outpatient new 45 minutes Kya Gonzalez [facility] Patient encounter status Kya Gonzalez Work Phone: TM-Msrmnnhtbceezz-Llffg Work Phone: Procedures Date Procedure Procedure Detail Performing Clinician Start: 12-29-2024 CT of thorax with contrast Sadie Santiago MACHINE ROOM ENGINEER-C Work Phone: Start: 12-17-[address] Quincy [...] Phone: Start: 04-13-2024 Follow-up visit Follow-up RACHEL BROOKS Start: 09-04-2023 XR CHEST 2 VIEWS RACHEL BROOKS Start: 09-03-2023 Esophagogastroduodenoscopy MACHINE ROOM ENGINEER-C Kya Gonzalez MACHINE ROOM ENGINEER Work Phone: Start: 08-05-2023 Videoswallow MACHINE ROOM ENGINEER-C Kya Gonzalez MACHINE ROOM ENGINEER Work Phone: Start: 07-29-2023 CT of soft tissues of neck with contrast MACHINE ROOM ENGINEER-C Kya Gonzalez MACHINE ROOM ENGINEER Work Phone: Start: 07-29-2023 CT of thorax with contrast MACHINE ROOM ENGINEER-C Kya Gonzalez MACHINE ROOM ENGINEER Work Phone: Start: 05-22-2023 End: 05-22-2023 Procedure Note: See Note; NOTES: [facility] [address] [place] [id number] OFFICE VISIT Date of Service: 05/22/23 1102 MR#: [id number] Acct: [id number] Name: MY JAMA Rep #: [id number] : 1960 From: Quincy Simpson MD Age/Sex: 62/M Location: [facility] [place] Status: Signed HPI Subjective Date of Service [...] FINDINGS: Supraclavicular: No acute process within the xfcyj-lj-gipy. Body wall soft tissues: No acute process. [...] AE1-3 (AE1/AE3/PCK26) positive CK7 (OV-TL12/30) negative CK8 ([id number]) positive, weak CK20 (KS20.8) negative TTF-1 (8G7G3/1) [...] Treatment: 12/20/2021 Date of Last Treatment: 02/06/2022 [facility] Medical History Acid reflux Anemia Cancer related [...] of first interosseous muscles. Coordination / Balance: uuyenm-vf-kemj test normal Speech: speech abnormal Gait (Neuro): [...] reviewed with patient . Quincy Simpson MD Divisional Merchandising Manager, [facility] Divisions of Medical Oncology Hematology Department of Internal Medicine [place] [id number] This note was generated using a voice recognition system software. Although it was reviewed by the author prior to finalization, it may still contain incorrect words, spelling, and punctuation that were not noted when reviewing prior to saving. If a clinically significant typo or inaccurately typed phrase is noted, please notify the author. 05/22/23 1130 <Electronically signed by Quincy Simpson MD> Date Quincy Simpson MD Cosign Signature: Date (if applicable) CC: Sadie Santiago DIRECTOR [employer]LO[employer] AFFAIRS Work Phone: Start: 07-12-2023 Anaerobic microbial culture MACHINE ROOM ENGINEER-C Kya Gonzalez MACHINE ROOM ENGINEER Work Phone: Start: 04-03-2023 Investigation of transfusion reaction MACHINE ROOM ENGINEER-C Kya Gonzalez MACHINE ROOM ENGINEER Work Phone: Start: 04-03-2023 Microbial culture, routine MACHINE ROOM ENGINEER-C Kya Gonzalez MACHINE ROOM ENGINEER Work Phone: Start: 02-13-2023 Anaerobic microbial culture MACHINE ROOM ENGINEER-C Kya Gonzalez MACHINE ROOM ENGINEER Work Phone: Start: 02-13-2023 Investigation of transfusion reaction MACHINE ROOM ENGINEER-C Kya Gonzalez MACHINE ROOM ENGINEER Work Phone: Start: 02-13-2023 Microbial culture, routine MACHINE ROOM ENGINEER-C Kya Gonzalez MACHINE ROOM ENGINEER Work Phone: Start: 01-31-2023 End: 01-31-2023 Procedure Note: See Note; NOTES: [facility] [address] [address] OFFICE VISIT Date of Service: 01/31/23956 MR#: [id number] Acct: [id number] Name: MY JAMA Rep #: [id number] : 1960 From: Santiago Sellers DO Age/Sex: 62/M Location: [facility] [place] Status: Signed Intake Vital Signs 11/01/22 09:37 [...] discussion with ENT. Continue follow up with VACUUM DRIER OPERATOR. He will continue to see ENT every [...] at any time. 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 01/31/23 1024 <Electronically signed by Santiago Sellers DO> Date Santiago Sellers DO Cosigner Signature: Date (if applicable) CC: MACHINE ROOM ENGINEER-C Kya Gonzalez; MD Sadie Agustin DIRECTOR [employer]AIRS Work Phone: Start: 01-28-2023 CT of soft tissues of neck with contrast MACHINE ROOM ENGINEER-C Kya Gonzalez MACHINE ROOM ENGINEER Work Phone: Start: 01-28-2023 CT of thorax with contrast MACHINE ROOM ENGINEER-C Kya Gonzalez MACHINE ROOM ENGINEER Work Phone: Start: 01-28-2023 End: 01-28-2023 Procedure Note: See Note; NOTES: [facility] Imaging Services [address] [place] [address] Chest WITH Contrast MR#: [id number] Acct: [id number] Name: MY JAMA Rep #: [id number] : 1960 M 62 From: Bib ghosh MD PCP: Sadie Santiago NP-C Status: REG CLI Study: Chest WITH Contrast Date of Exam: 01/28/23 Exam# [id number] Ordering Dr: Santiago Sellers DO STUDY: CT [...] 12:48 EDT Reading Location ID and State: [facility] / [place] , Service support , CC: YARI Santiago; Dr. Santiago Sellers DO Leasing Professional: Signed Sadie Santiago [facility] Work Phone: Start: 01-28-2023 End: 01-28-2023 Procedure Note: See Note; NOTES: [facility] Imaging Services [address] [place] [address] Soft Tissue Neck WITH Contrast MR#: [id number] Acct: [id number] Name: MY JAMA Rep #: [id number] : 1960 M 62 From: Bib ghosh MD PCP: YARI Santillan Status: REG CLI Study: Soft Tissue Neck WITH Contrast Date of Exam: 0 01/28/23 Exam# [id number] Ordering Dr: Santiago Sellers DO STUDY: CT [...] seen. Normal bilateral parotid glands. Normal bilateral storage management consultant spaces. Normal bilateral parapharyngeal spaces. Normal bilateral [...] Signed: Bib Reeves MD at 12:44 EDT Reading Location ID and State: [facility] / [place] , Service support , CC: MACHINE ROOM ENGINEER-C Sadie Santiago; Dr. Santiago Sellers DO Leasing Professional: Signed Sadie Santiago [facility] Work Phone: Start: 01-09-2023 Anaerobic microbial culture MACHINE ROOM ENGINEER-C Kya Posadaschioma MACHINE ROOM ENGINEER Work Phone: Start: 01-09-2023 Investigation of transfusion reaction MACHINE ROOM ENGINEER-C Kya Posadaschioma MACHINE ROOM ENGINEER Work Phone: Start: 01-09-2023 Microbial culture, routine MACHINE ROOM ENGINEER-C Kya Posadaschioma MACHINE ROOM ENGINEER Work Phone: Start: 11-21-2022 End: 11-21-2022 Procedure Note: See Note; NOTES: [facility] [address] [place] [address] OFFICE VISIT Date of Service: 11/21/22 1303 MR#: [id number] Acct: [id number] Name: MY JAMA Rep #: [id number] : 1960 From: Quincy Simpson MD Age/Sex: 62/M [place] [facility] [place] Status: Signed HPI Subjective Date of Service [...] FINDINGS: Supraclavicular: No acute process within the xmyvt-eq-obox. Body wall soft tissues: No acute process. [...] AE1-3 (AE1/AE3/PCK26) positive CK7 (OV-TL12/30) negative CK8 (30zggiI76) positive, weak CK20 (KS20.8) negative TTF-1 (8G7G3/1) [...] Treatment: 12/20/2021 Date of Last Treatment: 02/06/2022 [facility] Medical History Acid reflux Anemia Cancer related [...] of first interosseous muscles. Coordination / Balance: qewjho-mb-hfse test normal Speech: speech abnormal Gait (Neuro): [...] reviewed with patient . Quincy Simpson MD Divisional Merchandising Manager, [facility] Divisions of Medical Oncology Hematology Department of Internal Medicine [address] [address] This note was generated using a voice [...] MD Cosigner Signature: Date (if applicable) CC: MACHINE ROOM ENGINEERLulu Sunyn Jack [facility] Work Phone: Start: 11-01-2022 End: 11-01-2022 Procedure Note: See Note; NOTES: [place] [id number] OFFICE VISIT Date of Service: 11/01/22929 MR#: [id number] Acct: [id number] Name: MY JAMA Rep #: [id number] : 1960 From: Santiago Sellers DO Age/Sex: 62/M Location: [facility] [place] Status: Signed Intake Vital Signs 07/31/22 09:11 [...] fibrosis #30 caps 07/31/22 [Rx Confirmed 11/01/22] [facility] Medical History Acid reflux Anemia Cancer related [...] at any time. 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 11/01/22 1006 <Electronically signed by Santiago Sellers DO> Date Santiago Sellers DO Cosigner Signature: Date (if applicable) CC: MACHINE ROOM ENGINEER-C Kya Gonzalez; MD Sadie Agustin [facility] Work Phone: Start: 08-06-2022 Thyrotropin [Units/volume] in Serum or Plasma Rachel Brooks MD Work Phone: Start: 07-31-2022 End: 07-31-2022 Procedure Note: See Note; NOTES: [facility] [place] [address] OFFICE VISIT Date of Service: 07/31/2204 MR#: [id number] Acct: [id number] Name: MY JMAA Yamilet Rep #: [id number] : 1960 From: Santiago Verito DO Age/Sex: 62/M Location: [facility] [place] Status: Signed Intake Vital Signs 04/30/22 09:03 [...] removal of the remaining teeth lower teeth ???28. Patient was treated with antibiotics for slowly [...] at any time. 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 07/31/22 1000 <Electronically signed by Santiago Sellers DO> Date Santiago Sellers DO Cosigner Signature: Date (if applicable) CC: MACHINE ROOM ENGINEER-C Kya Gonzalez; MD Sadie Agustin [facility] Work Phone: Start: 07-24-2022 CT of soft tissues of neck with contrast MACHINE ROOM ENGINEER-C Kya Gonzalez MACHINE ROOM ENGINEER Work Phone: Start: 07-24-2022 CT of thorax with contrast MACHINE ROOM ENGINEER-C Kya Gonzalez MACHINE ROOM ENGINEER Work Phone: Start: 07-24-2022 End: 07-25-2022 Procedure Note: See Note; NOTES: [facility] Imaging Services [address] [place] [address] Chest WITH Contrast MR#: [id number] Acct: [id number] Name: MY JAMA Rep #: [id number] : 1960 M 62 From: Bib ghosh MD PCP: YARI Pardo Status: REG CLI Study: Chest WITH Contrast Date of Exam: 07/24/22 Exam# [id number] Ordering Dr: Quincy Simpson MD STUDY: CT [...] 13:10 EDT Reading Location ID and State: [address] [place] [address] , Service support , CC: YARI Gonzalez; Dr. Quincy Simpson MD Leasing Professional: Signed Sadie Santiago CNP Work Phone: Start: 07-24-2022 End: 07-24-2022 Procedure Note: See Note; NOTES: [facility] Imaging Services [address] [place] [address] Soft Tissue Neck WITH Contrast MR#: [id number] Acct: [id number] Name: MY JAMA Yamilet Rep #: [id number] : 1960 M 62 From: Bib ghosh MD PCP: Kya Gonzalez, MACHINE ROOM ENGINEER-C Status: REG CLI Study: Soft Tissue Neck WITH Contrast Date of Exam: 09/23/21 Exam# [id number] Ordering Dr: Quincy Simpson MD STUDY: CT [...] region. Normal bilateral parotid glands. Normal bilateral storage management consultant spaces. Normal bilateral parapharyngeal spaces. Normal bilateral [...] CC: YARI Gonzalez; Dr. 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 He received courses of chemotherapy followed by radiation treatments, which were concluded by the end of 2018. He recently underwent oral surgery and had 8 teeth extracted. Two extraction sites have failed to heal. On November 07, 2021, the patient underwent reconstruction of the jaw using bone from his left lower leg. 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 [facility] Medical History (Updated 07/10/22 @ 13:00 by [...] Recorded Date Recorded By Document 06/27/22 08:32 KR [id number] 06/27/22 08:38 KR Document 07/04/22 08:19 PL [id number] 07/04/22 08:21 PL Document 07/10/22 08:41 KR [id number] 07/10/22 08:45 KR 06/27/22 07/04/22 07/10/22 08:32 08:19 08:41 - Today's Visit Information Type of service Follow-up Visit Follow-up Visit Follow-up Visit (Physician/DIRECTOR [facility] [facility] (Physician/DIRECTOR [facility] [facility] (Physician/DIRECTOR [facility] [facility] ) ) ) Arrival Mode Ambulatory Ambulatory [...] Recorded Date Recorded By Document 06/27/22 08:32 KR [id number] 06/27/22 08:38 KR Document 07/10/22 08:41 KR [id number] 07/10/22 08:45 KR 06/27/22 07/10/22 08:32 08:41 Wound Center Nurse 1 #2- L LAT LE -Current Size (cm) - Length 0.1 -Current Size (cm) - Width 0.1 -Current Size (cm) - Depth 0.1 -Total Square Cm 0.01 -Exudate Amt Medium -Exudate Type Serosanguineous -Wound Margin Distinct, Outline Attached -Granulation Amt Medium (34-66%) -Granulation [place] -Necrosis Amt Small (1-33%) -Necrotic Tissue Type [...] (34-66%) None Present (0 %) -Granulation [place] -Necrosis Amt Medium (34-66%) Large (67-100%) -Necrotic [...] Date Recorded By Document 06/27/22 08:44 MW [id number] 06/27/22 08:50 MW Document 07/04/22 08:45 MW [id number] 07/04/22 08:49 MW Document 07/10/22 10:59 PL [id number] 07/10/22 10:59 PL 06/27/22 07/04/22 07/10/22 08:44 [...] Date Recorded By Document 06/27/22 09:01 MW [id number] 06/27/22 09:02 MW Document 07/04/22 08:55 PL [id number] 07/04/22 08:56 PL Document 07/10/22 09:14 KR [id number] 07/10/22 09:14 KR 06/27/22 07/04/22 07/10/22 09:01 [...] Signature (if applicable): CC: Signed Sadie Santiago [facility] Work Phone: Start: 06-15-2022 End: 06-15-2022 Modified Barium Swallow Study Procedure Note: See Note ; NOTES: [facility] Speech Pathology [address] [place] [address] Modified Barium Swallow Study MR#: [id number] Acct: [id number] Name: MY JAMA Rep #: [id number] : 1960 61 From: Latosha Boyer M.A., [facility]-VACUUM DRIER OPERATOR Modified Barium Swallow - Patient Information Study [...] purees due to increased difficulty swallowing solids. VACUUM DRIER OPERATOR recommended repeat MBSS to reassess swallow function [...] clearing trace residues lining the laryngeal vestibule. [place] Thick Liquid via small single sip from [...] aspiration observed during the study; however, the VACUUM DRIER OPERATOR could not definitively rule out aspiration of [...] regarding diet recommendations, [place] Free Water Protocol (VACUUM DRIER OPERATOR provided pt and daughter handout after MBSS), [...] Active ST Patient: Active - Contact Information [facility] Speech Therapy:: Latosha Boyer M.A. CCC-VACUUM DRIER OPERATOR Speech-Language Pathologist [facility] [address] [place] [address] [email or web address] [phone] 06/15/22 14:26 06/15/22 1518 <Electronically signed by Latosha Boyer M.A., CCC-S LP> Date/Time Latosha Boyer M.A., MARCIA-VACUUM DRIER OPERATOR Co-Signature Required for all Medicare patients Date/Time Co-Signature CC: Sadie Santiago DIRECTOR [facility] Work Phone: Start: 06-15-2022 Timmy MACHINE ROOM ENGINEER-C Kya Gonzalez MACHINE ROOM ENGINEER Work Phone: Start: 05-23-2022 End: 05-23-2022 Oncology Visit Report Procedure Note: See Note; NOTES: [facility] [place] [address] OFFICE VISIT Date of Service: 05/23/22 1126 MR#: [id number] Acct: [id number] Name: MY JAMA Rep #: [id number] : 1960 From: Quincy Simpson MD Age/Sex: 61/M Location: [facility] [place] Status: Signed HPI Subjective Date of Service [...] FINDINGS: Supraclavicular: No acute process within the gffha-rc-dywu. Body wall soft tissues: No acute process. [...] AE1-3 (AE1/AE3/PCK26) positive CK7 (OV-TL12/30) negative CK8 (16hqwxM28) positive, weak CK20 (KS20.8) negative TTF-1 (8G7G3/1) [...] Treatment: 12/20/2021 Date of Last Treatment: 02/06/2022 [facility] Medical History Acid reflux Anemia Cancer related [...] of first interosseous muscles. Coordination / Balance: vooznn-tf-ntqi test normal Speech: speech abnormal Gait (Neuro): [...] reviewed with patient . Quincy Simpson MD Divisional Merchandising Manager, [facility] Divisions of Medical Oncology Hematology Department of Internal Medicine [place] [address] This note was generated using a voice recognition system software. Although it was reviewed by the author prior to finalization, it may still contain incorrect words, spelling, and punctuation that were not noted when reviewing prior to saving. If a clinically significant typo or inaccurately typed phrase is noted, please notify the author. 05/23/22 7852 <Electronically signed by Quincy Simpson MD> Date Quincy Manley Signature: Date (if applicable) CC: MACHINE ROOM ENGINEERLulu Riveromeganchioma Sadie Jack DIRECTOR [facility] Work Phone: Start: 04-30-2022 End: 04-30-2022 Radiation Oncology Visit Procedure Note: See Note; NOTES: [facility] [address] [place] [address] OFFICE VISIT Date of Service: 04/30/22856 MR#: [id number] Acct: [id number] Name: MY JAMA Rep #: [id number] : 1960 From: Santiago Sellers DO Age/Sex: 61/M Location: [facility] [place] Status: Signed Intake Vital Signs 03/27/22 09:27 [...] at any time. 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 Quincy Simpson MD; MD Sadie Agustin [facility] Work Phone: Start: 04-25-2022 End: 04-25-2022 Wound Ctr History AND Physical Comments: See Note; NOTES: [facility] [address] [place] [address] H P Exam - Wound Care 04/25/22 0958 MR#: [id number] Acct: [id number] Name: MY JAMA Rep #: [id number] : 1960 61 From: Joya BUNN PCP: YARI Pardo Status:REG RCR Location: History of Present Illness Date of Service: 04/25/22 Chief Complaint: Follow-up open surgical wound from cancer of the jaw. History of Wound: Hx of Throat cancer back in 2018 received chemo and then radiation treatments and finished it up but by the end of 2017.Recently was seen by oral surgery and had 8 teeth extracted 2 teeth have still not healed. Most recent surgery is November 07, 2021 reconstruction of the jaw using bone from his left lower leg but left the neck area open for healing. [facility] Medical History Acid reflux Anemia Cancer related [...] Date Recorded By Document 04/25/22 08:55 VIC [id number] 04/25/22 09:04 VIC 04/25/22 08:55 - Today's Visit Information Type of service [...] Recorded Date Recorded By Document 04/25/22 08:55 KR [id number] 04/25/22 09:04 KR 04/25/22 08:55 Wound Center Nurse 1 #1 [...] Date Recorded By Document 04/25/22 09:49 PL [id number] 04/25/22 09:51 PL 04/25/22 09:49 Wound Center [...] Recorded Date Recorded By Document 04/25/22 09:21 [facility] [id number] 04/25/22 09:23 [facility] 04/25/22 09:21 Wound Care Nurse 3 #1 Chin -Ulcer Cleansing Rinsed/ Irrigated with Saline -Foul Odor after Cleansing No -Primary Dressing Applied Aquacel Extra -Primary Dressing Covered/Secured with Dry Gauze, Secured with Tape -Other Covering DRSG PER [place] CAN MARKER , PT TO USE SANTYL AT HOME -Aquacel Extra 1 Treatment Response Procedure Tolerated Well Pain Scale: 0-10 Numeric Is Patient Pain Free? Yes - Visit Discharge Discharge Condition Stable Transportation [...] 1007 <Electronically signed by Joya Galvez NP MACHINE ROOM ENGINEER-C> Cosigner Signature (if applicable): CC: Signed Sadie Santiago JOHNSON Work Phone: Start: 04-13-2022 End: 04-17-2022 Modified Barium Swallow Study Comments: See Note; NOTES: [facility] Speech Pathology [address] [place] [address] Modified Barium Swallow Study MR#: [id number] Acct: [id number] Name: MY JAMA Rep #: [id number] : 1960 61 From: Latosha Boyer M.A., [facility]-VACUUM DRIER OPERATOR Modified Barium Swallow - Patient Information Study [...] his beverage being expectorated from his trach. VACUUM DRIER OPERATOR recommended repeat MBS study to reassess swallow [...] Result: 3= enters airways/above vocal folds/not ejected [place] Thick Liquid via small single sip from cup Result: 1= does not enter airway Honey Thick Liquid via small single sip from cup Result: 1= does not enter airway - Cued the patient for cough and re-swallow to clear the laryngeal vestibule of trace residues from the sequential sips of thin via cup. VACUUM DRIER OPERATOR recommended placing PMSV and cleaned the valve [...] Active ST Patient: Active - Contact Information [facility] Speech Therapy:: Latosha Boyer M.A. CCC-VACUUM DRIER OPERATOR Speech-Language Pathologist [address] [address] [email or web address] [phone] 04/13/22 12:15 04/13/22 1248 <Electronically signed by Latosha Boyer M.A., CCC-S LP> Date/Time Latosha Boyer M.A., MARCIA-VACUUM DRIER OPERATOR Co-Signature Required for all Medicare patients Date/Time Co-Signature CC: Sadie Santiago DIRECTOR [facility] Work Phone: Start: 04-13-2022 Timmy Gonzalez MACHINE ROOM ENGINEER Work Phone: Start: 03-27-2022 End: 03-27-2022 Radiation Oncology Visit Comments: See Note; NOTES: [facility] [address] [place] [address] OFFICE VISIT Date of Service: 03/27/22924 MR#: [id number] Acct: [id number] Name: MY JAMA Rep #: [id number] : 1960 From: Santiago Sellers DO Age/Sex: 61/M Location: [facility] [place] Status: Signed Intake Vital Signs 03/27/22 09:25 [...] peeling #85 grams 03/27/22 [Rx Confirmed 03/27/22] [facility] Medical History (Updated 02/27/22 @ 10:29 by [...] removal of the remaining teeth lower teeth ???28. Patient was treated with antibiotics for slowly [...] at any time. 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 Quincy Simpson MD; MD Kya Agustin Work Phone: Start: 02-27-2022 End: 02-27-2022 Radiation Oncology Visit Comments: See Note; NOTES: [facility] [address] [place] [place] [address] OFFICE VISIT Date of Service: 02/27/22957 MR#: [id number] Acct: [id number] Name: MY JAAM Rep #: [id number] : 1960 From: Santiago Sellers Age/Sex: 61/M Location: [facility] [place] Status: Signed Intake Vital Signs 02/27/22 10:05 [...] Days #60 cap 02/27/22 [Rx Confirmed 02/27/22] [facility] Medical History (Updated 02/27/22 @ 10:29 by [...] at any time. 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 [address] OFFICE VISIT Date of Service: 02/14/22 1042 MR#: [id number] Acct: [id number] Name: MY JAMA Rep #: [id number] : 1960 From: Quincy Simpson MD Age/Sex: 61/M Location: [facility] [place] Status: Signed HPI Subjective Date of Service [...] FINDINGS: Supraclavicular: No acute process within the czrmn-ra-cqoq. Body wall soft tissues: No acute process. [...] AE1-3 (AE1/AE3/PCK26) positive CK7 (OV-TL12/30) negative CK8 (01nideA61) positive, weak CK20 (KS20.8) negative TTF-1 (8G7G3/1) [...] Treatment: 12/20/2021 Date of Last Treatment: 02/06/2022 [facility] Medical History Acid reflux Anemia Cancer related [...] of first interosseous muscles. Coordination / Balance: ockrno-op-dzmd test normal Speech: speech abnormal Gait (Neuro): [...] reviewed with patient . Quincy Simpson MD Divisional Merchandising Manager, [facility] Divisions of Medical Oncology Hematology Department of Internal Medicine [place] [address] This note was generated using a voice [...] MD Cosigner Signature: Date (if applicable) CC: MACHINE ROOM ENGINEERLulu Gonzalez; Dr. Santiago Sellers, DO Kya Gonzalez Work Phone: Start: 02-14-2022 End: 02-14-2022 Radiation Oncology Visit Comments: See Note; NOTES: [facility] [address] [address] OFFICE VISIT Date of Service: 02/14/22 1038 MR#: [id number] Acct: [id number] Name: MY JAMA Rep #: [id number] : 1960 From: Santiago Sellers DO Age/Sex: 61/M Location: [facility] [place] Status: Signed Intake Vital Signs 02/14/22 10:38 [...] at any time. 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 Quincy Simpson MD; MD Kya Agustin Work Phone: Start: 02-06-2022 End: 02-06-2022 Radiation Oncology Visit Comments: See Note; NOTES: [facility] [address] [place] [address] OFFICE VISIT Date of Service: 02/06/22924 MR#: [id number] Acct: [id number] Name: MY JAMA Rep #: [id number] : 1960 From: Santiago Verito REN Age/Sex: 61/M Location: [facility] Status: Signed End of Treatment Summary: Diagnosis: [...] this patient. Sincerely, Santiago Sellers DO, MS Divisional Merchandising Manager, Department of Radiation Oncology [facility] 02/06/22 0941 <Electronically signed by Santiago Sellers DO> Date Santiago Sellers DO Cosigner Signature: Date (if applicable) CC: MACHINE ROOM ENGINEER-C Kya Gonzalez; Dr. Quincy Simpson MD; MD Kya Agustin Work Phone: Start: 01-31-2022 End: 01-31-2022 Radiation Oncology Visit Comments: See Note; NOTES: [facility] [address] [address] OFFICE VISIT Date of Service: 01/31/22 0847 MR#: [id number] Acct: [id number] Name: MY JAMA Rep #: [id number] : 1960 From: Santiago Sellers DO Age/Sex: 61/M Location: [facility] Status: Signed Intake Intake Visit Reasons: OTV Is patient in pain?: No Allergies No Known Allergies Allergy (Verified 01/31/22 08:38) PFSH PFS Medical History Acid reflux Anemia [...] follow up, weight stable to slightly decreased VACUUM DRIER OPERATOR: continue following during XRT Rinses: continue recommended baking soda/salt rinses 4-6/d, green tea rinses 2-3/d Follow up in 2 weeks or sooner if needed. Thank you for allowing me to participate in the management and care of your patient. If I may answer any questions in the interim, please do not hesitate to contact me at any time. 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 [place] [address] OFFICE VISIT Date of Service: 01/31/2230 MR#: [id number] Acct: [id number] Name: MY JAMA Rep #: [id number] : 1960 From: Quincy Simpson MD Age/Sex: 61/M Location: [facility] [place] Status: Signed HPI Subjective Date of Service [...] FINDINGS: Supraclavicular: No acute process within the qdkjf-qf-cxws. Body wall soft tissues: No acute process. 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 [facility] Medical History Acid reflux Anemia Cancer related [...] of first interosseous muscles. Coordination / Balance: xogqhp-cn-robz test normal Speech: speech abnormal Gait (Neuro): [...] reviewed with patient . Quincy Simpson MD Divisional Merchandising Manager, [facility] Divisions of Medical Oncology Hematology Department of Internal Medicine [place] [facility] [address] [address] This note was generated using a voice [...] Radiation Oncology Visit Comments: See Note; NOTES: [facility] Cancer [address] [address] OFFICE VISIT Date of Service: 01/24/22 1029 MR#: [id number] Acct: [id number] Name: MY JAMA Yamilet Rep #: [id number] : 1960 From: Santiago Sellers DO Age/Sex: 61/M Location[place] [facility] [place] Status: Signed Intake Vital Signs 01/24/22 10:30 [...] Days #42 cap 01/24/22 [Rx Confirmed 01/24/22] [facility] Medical History Acid reflux Anemia Cancer related [...] follow up, weight stable to slightly decreased VACUUM DRIER OPERATOR: continue following during XRT Rinses: continue recommended baking soda/salt rinses 4-6/d, green tea rinses 2-3/d Follow up next week or sooner if needed. Thank you for allowing me to participate in the management and care of your patient. If I may answer any questions in the interim, please do not hesitate to contact me at any time. 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 01/24/22 1059 <Electronically signed by Santiago Sellers DO> Date Santiago Sellers [facility] Signature: Date (if applicable) CC: Kya Monica Work Phone: Start: 01-22-2022 End: 01-22-2022 Chest PA and Lateral Comments: See Note; NOTES: [facility] Imaging Services [address] [place] [address] Chest PA and Lateral MR#: [id number] Acct: [id number] Name: MY JAMA Rep #: [id number] : 1960 M 61 From: Charles Tyler PCP: Kya Gonzalez, MACHINE ROOM ENGINEER-C Status: REG ER Study: Chest PA and Lateral Date of Exam: 01/22/22 Exam# [id number] Ordering Dr: Cesar Mcbride MD STUDY: X-RAY [...] 21:32 EDT Reading Location ID and State: [facility] / [place] , Service support , CC: YARI Gonzalez; Dr. Cesar Mcbride MD Leasing Professional: Signed Kya Gonzalez Work Phone: Start: 01-22-2022 Plain chest X-ray MACHINE ROOM ENGINEER-C Kya Gonzalez MACHINE ROOM ENGINEER Work Phone: Start: 01-22-2022 End: 01-22-2022 Emergency Department Summary Comments: See Note; NOTES: [facility] Medical Records Department [address] [place] [address] Emergency Department Summary 01/22/22 MR#: [id number] Acct: [id number] Name: MY JAMA Rep #: [id number] : 1960 61 From: Cesar Mcbride MD PCP: YARI Pardo Status:REG ER Location: ED HPI History of [...] undergoing chemotherapy. He is status post tracheostomy. [facility] Medical History Acid reflux Anemia Cancer related [...] oriented x3 and CN's II-XII intact bilaterally [place] Coma Scale: document GCS findings Spontaneous Obeys Commands Oriented 15 Sensorium / Orientation: alert Psych mental status grossly normal Thought Process: normal thought process Skin No no wounds Skin Narrative: Wound previously described left calf General Skin Exam: Negative for jaundice or pallor Lesions: No no lesions Rashes: No no rashes [facility] Lab Data Attestation: I reviewed the patient's [...] 80.0 H Lymph % (Auto) 7.4 L [place] % (Auto) 11.7 H Eos % (Auto) [...] Signed: Charles Ayala MD at 21:32 EDT , EKG Initial EKG: Attestation: I personally reviewed and interpreted this EKG as follows: Interpretation: Sinus Rhythm (Rate is 70. The EKG is normal. WA interval 70 ms. QRS duration is 170 ms. QRS durations 90 ms. QT duration 394 ms. 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 Call Doctors [facility] ([phone]) or report to the closest Emergency Room. Call 911 if necessary. 01/22/222146 <Electronically signed by Cesar Mcbride MD> Cosigner Signature (if applicable): CC: MACHINE ROOM ENGINEERLulu Gonzalez Signed Kya Gonzalez Work Phone: Start: 01-17-2022 End: 01-24-2022 Radiation Oncology Visit Comments: See Note; NOTES: [facility] [address] [place] [address] OFFICE VISIT Date of Service: 01/17/2246 MR#: [id number] Acct: [id number] Name: MY JAMA Rep #: [id number] : 1960 From: Santiago Sellers DO Age/Sex: 61/M Location: [facility] [place] Status: Signed Intake Vital Signs 01/17/22 11:57 BP 127/70 H Blood Pressure Location Rt brachial Position Sitting Respiration 16 Pulse 66 Pulse Source Monitor Temp 98 F Temperature Source Tympanic Pulse Oximetry (%) 100 Oxygen Delivery Method room air Intake Visit Reasons: OTV Chief Complaint: Recurrent squamous cell cancer of the head and neck on treatment Tunnel Heading Inspector Required: No Is patient in pain?: No Allergies No Known Allergies Allergy (Verified 01/17/22 09:25) [facility] Medical History Acid reflux Anemia Cancer related [...] via PEG, continue follow up, weight stable VACUUM DRIER OPERATOR: continue following during XRT Rinses: continue recommended [...] by Santiago Sellers DO> Date Santiago Verito REN 01/17/22 1206<Electronically signed by Segundo Goldberg MD> Cosigner Signature: Date (if applicable) Segundo Goldberg MD CC: Kya Gonzalez Work Phone: Start: 01-10-2022 End: 01-10-2022 Radiation Oncology Visit Comments: See Note; NOTES: [facility] Cancer [address] [address] OFFICE VISIT Date of Service: 01/10/22 1033 MR#: [id number] Acct: [id number] Name: MY JAMA Rep #: [id number] : 1960 From: Santiago Verito REN Age/Sex: 61/M Location: [facility] [place] Status: Signed Intake Intake Visit Reasons: OTV Chief Complaint: Recurrent squamous cell cancer of the head and neck on treatment Tunnel Heading Inspector Required: No Is patient in pain?: Yes (chin and jaw at night) Pain scale (1-10): 6 Allergies No Known Allergies Allergy (Verified 01/10/22 09:14) PFSH PFSH Medical History (Updated 01/10/22 @ 10:14 by Marce Maxwell MACHINE ROOM ENGINEER, MACHINE ROOM ENGINEER-C) Acid reflux Anemia Cancer related pain Cellulitis [...] via PEG, continue follow up, weight stable VACUUM DRIER OPERATOR: continue following during XRT Rinses: continue recommended baking soda/salt rinses 4-6/d, green tea rinses 2-3/d Follow up next week or sooner if needed. Thank you for allowing me to participate in the management and care of your patient. If I may answer any questions in the interim, please do not hesitate to contact me at any time. 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 01/10/22 1221 <Electronically signed by Santiago Sellers DO> Date Santiago Sellers DO Cosigner Signature: Date (if applicable) CC: Kya Gonzalez Work Phone: Start: 01-10-2022 End: 01-10-2022 Oncology Visit Report Comments: See Note; NOTES: [facility] [address] [place] [address] OFFICE VISIT Date of Service: 01/10/22911 MR#: [id number] Acct: [id number] Name: MY JAMA Rep #: [id number] : 1960 From: Marce Maxwell NP MACHINE ROOM ENGINEER -C Age/Sex: 61/M Location: [facility] [place] Status: Signed HPI Subjective Date of Service [...] FINDINGS: Supraclavicular: No acute process within the pnvyp-ez-hgft. Body wall soft tissues: No acute process. [...] AE1-3 (AE1/AE3/PCK26) positive CK7 (OV-TL12/30) negative CK8 (93zfcxX35) positive, weak CK20 (KS20.8) negative TTF-1 (8G7G3/1) [...] abd pain, nausea, Chronic exertional dyspnea unchanged. [facility] Medical History (Updated 01/10/22 @ 10:14 by Marce Maxwell MACHINE ROOM ENGINEER, MACHINE ROOM ENGINEER-C) Acid reflux Anemia Cancer related pain Cellulitis [...] management: Status: Acute Plan - Marce Maxwell MACHINE ROOM ENGINEER, MACHINE ROOM ENGINEER-C: 60-year-old male ex-smoker, in addition to excessive [...] 1014 <Electronically signed by Marce Maxwell NP MACHINE ROOM ENGINEER-C> Date Marce Maxwell NP MACHINE ROOM ENGINEER-C Cosigner Signature: Date (if applicable) CC: Kya Gonzalez Work Phone: Start: 01-08-2022 End: 01-08-2022 Modified Barium Swallow Study Comments: See Note; NOTES: [facility] Speech Pathology [address] [place] [address] Modified Barium Swallow Study MR#: [id number] Acct: [id number] Name: MY JAMA Rep #: [id number] : 1960 61 From: Latosha Boyer M.A., [facility]-VACUUM DRIER OPERATOR Modified Barium Swallow - Patient Information Study [...] Result: 3= enters airways/above vocal folds/not ejected [place] Thick Liquid via small single sip from [...] Active ST Patient: Active - Contact Information [facility] Speech Therapy:: Latosha Boyer M.A. CCC-VACUUM DRIER OPERATOR Speech-Language Pathologist [address] [address] [email or web address] [phone] 01/08/22 17:21 01/08/22 1739 <Electronically signed by Latosha Boyer M.A., CCC-S LP> Date/Time Latosha Boyer M.A., MARCIA-VACUUM DRIER OPERATOR Co-Signature Required for all Medicare patients Date/Time Co-Signature CC: Kya Gonzalez Work Phone: Start: 01-08-2022 Videoswallow MACHINE ROOM ENGINEER-C Kya Gonzalez MACHINE ROOM ENGINEER Work Phone: Start: 01-04-2022 End: 01-08-2022 Radiation Oncology Visit Comments: See Note; NOTES: [facility] [address] [place] [address] OFFICE VISIT Date of Service: 01/04/22856 MR#: [id number] Acct: [id number] Name: MY JAMA Rep #: [id number] : 1960 From: Santiago Sellers DO Age/Sex: 61/M Location: [facility] [place] Status: Signed Intake Vital Signs 01/04/22 08:57 Weight: 124 lb 7 oz BP 118/64 Blood Pressure Location Rt brachial Position Sitting Respiration 14 Pulse 70 Pulse Source Monitor Temp 98.7 F Temperature Source Tympanic Pulse Oximetry (%) 93 Oxygen Delivery Method room air Intake Visit Reasons: OTV Chief Complaint: Recurrent squamous cell cancer of the head and neck on treatment Tunnel Heading Inspector Required: No Is patient in pain?: No [...] number: Chemotherapy: weekly carboplatin Subjective: Pain: 2-3 10, jaw and leg (flap donor site) [...] Sellers DO> Date Santiago Sellers DO 01/04/22 09<Electronically signed by Chago Junior MD> Cosigner Signature: Date (if applicable) Chago Junior MD CC: Kya Gonzalez Work Phone: Start: 01-03-2022 End: 01-03-2022 Oncology Visit Report Comments: See Note; NOTES: [facility] [address] [place] [address]. [place] [address] OFFICE VISIT Date of Service: 01/03/22919 MR#: [id number] Acct: [id number] Name: MY JAMA Rep #: [id number] : 1960 From: Quincy Simpson MD Age/Sex: 61/M Location: [facility] [place] Status: Signed HPI Subjective Date of Service [...] FINDINGS: Supraclavicular: No acute process within the uxwle-bq-fwbc. Body wall soft tissues: No acute process. [...] AE1-3 (AE1/AE3/PCK26) positive CK7 (OV-TL12/30) negative CK8 (65syinH48) positive, weak CK20 (KS20.8) negative TTF-1 (8G7G3/1) [...] with carboplatin AUC 2 December 20, 2021-. [facility] Medical History Acid reflux Anemia Cancer related [...] of first interosseous muscles. Coordination / Balance: wqxfhs-zz-zhgd test normal Speech: speech abnormal Gait (Neuro): [...] reviewed with patient . Quincy Simpson MD Divisional Merchandising Manager, [facility] Divisions of Medical Oncology Hematology Department of Internal Medicine [place] [id number] This note was generated using a voice [...] Radiation Oncology Visit Comments: See Note; NOTES: [facility] Cancer [address] [place] [address] OFFICE VISIT Date of Service: 12/27/21 1048 MR#: [id number] Acct: [id number] Name: MY JAMA Rep #: [id number] : 1960 From: Santiago Sellers DO Age/Sex: 61/M Location: [facility] [place] Status: Signed Intake Intake Visit Reasons: OTV [...] delivered to infusion today per med onc MACHINE ROOM ENGINEER Nutrition/weight: Weight stable. Small volume mostly soft [...] and RT today. Discussed with Med Onc MACHINE ROOM ENGINEER Plan: Continue treatment as planned. I have [...] (if applicable) Chago Junior MD CC: Kya Josefameganchioma Work Phone: Start: 12-27-2021 End: 12-27-2021 Oncology Visit Report Comments: See Note; NOTES: [facility] [address] [place] [address] OFFICE VISIT Date of Service: 12/27/21 0858 MR#: [id number] Acct: [id number] Name: MY JAMA Rep #: [id number] : 1960 From: Marce Maxwell NP MACHINE ROOM ENGINEER -C Age/Sex: 61/M Location: [facility] [place] Status: Signed HPI Subjective Date of Service [...] FINDINGS: Supraclavicular: No acute process within the bdsww-bv-rial. Body wall soft tissues: No acute process. [...] AE1-3 (AE1/AE3/PCK26) positive CK7 (OV-TL12/30) negative CK8 (00fbvuJ07) positive, weak CK20 (KS20.8) negative TTF-1 (8G7G3/1) [...] atb was going to be called to [facility] in [place] last week, however pharmacy stated they never [...] abd pain, nausea, Chronic exertional dyspnea unchanged. [facility] Medical History (Updated 12/27/21 @ 12:21 by Marce Maxwell MACHINE ROOM ENGINEER, MACHINE ROOM ENGINEER-C) Acid reflux Anemia Cancer related pain Cellulitis [...] 96 Oxygen Delivery Method room air Intake Tunnel Heading Inspector Required: No Accompanied by: self Is patient [...] mL 0RF T81.89XD Plan - Marce Maxwell MACHINE ROOM ENGINEER, MACHINE ROOM ENGINEER-C: 61-year-old male ex-smoker, in addition to excessive [...] will send rx for doxycycline. Will have [facility] retail deliver to confirm patient goes home [...] 12/27/21 1222 <Electronically signed by Marce Maxwell NP, NP-C> Date Marce Maxwell NP MACHINE ROOM ENGINEER-C Cosigner Signature: Date (if applicable) CC: MACHINE ROOM ENGINEER-C Kya Gonzalez Work Phone: Start: 12-20-2021 End: 12-20-2021 Radiation Oncology Visit Comments: See Note; NOTES: [facility] [address] [place], [place] [address] [place] [address] OFFICE VISIT Date of Service: 12/20/21 1113 MR#: [id number] Acct: [id number] Name: MY JAMA Rep #: [id number] : 1960 From: Santiago Sellers DO Age/Sex: 61/M Location: [facility] [place] Status: Signed Intake Vital Signs 12/20/21 11:13 Blood Pressure Location Rt brachial Position Sitting Respiration 18 Pulse 69 Pulse Source Monitor Temp 98.3 F Temperature Source Tympanic Pulse Oximetry (%) 98 Oxygen Delivery Method room air Intake Visit Reasons: OTV Chief Complaint: Recurrent squamous cell cancer of the head and neck on treatment Tunnel Heading Inspector Required: No Is patient in pain?: Yes [...] Days #30 tab 12/20/21 [Rx Confirmed 12/20/21] PFSH PFSH Medical History Acid reflux Anemia [...] at any time. 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 [place] [address] / REHABILITATION SERVICES INITIAL EVALUATION MR#: [id number] Acct: [id number] Name: MY JAMA Rep #: [id number] : 1960 61 From: Latosha Boyer M.A., [facility]-VACUUM DRIER OPERATOR Referring Dr.: Dr. 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 [facility]-VACUUM DRIER OPERATOR> 12/20/21 1108 CC: YARI Gonzalez; Dr. Santiago Sellers, MW Signed Kya Gonzalez Work Phone: Start: 12-18-2021 End: 12-18-2021 Venous Duplex US, Unilateral Comments: See Note; NOTES: [facility] Cardiovascular Services [address] [place] [address] Venous Duplex US, Unilateral 12/18/2158 MR#: [id number] Acct: [id number] Name: MY JAMA Rep #: [id number] : 1960 61 From: Donaldo Nichole MD [...] RVT 12/18/211919 Date Donaldo Nichole MD CC: MACHINE ROOM ENGINEER-C Kya Gonzalez; Dr. Quincy Simpson MD Date Dictated: 12/18/21957 Date Transcribed: 12/18/211919 Leasing Professional: Signed Kya Gonzalez Work Phone: Start: 12-18-2021 End: 12-18-2021 Oncology Visit Report Comments: See Note; NOTES: [facility] [address] [place] [address] OFFICE VISIT Date of Service: 12/18/2148 MR#: [id number] Acct: [id number] Name: MY JAMA Rep #: [id number] : 1960 From: Quincy Simpson MD Age/Sex: 61/M Location: [facility] [place] Status: Signed HPI Subjective Date of Service [...] FINDINGS: Supraclavicular: No acute process within the jemaa-nl-veaf. Body wall soft tissues: No acute process. [...] AE1-3 (AE1/AE3/PCK26) positive CK7 (OV-TL12/30) negative CK8 (59bojmG10) positive, weak CK20 (KS20.8) negative TTF-1 (8G7G3/1) [...] radiation planned to start December 20, 2021. [facility] Medical History Acid reflux Anemia Cancer related [...] this report are calculated using the exclusive [employer]. (U.S. Patent No. [id number] [id number] 983). [...] of first interosseous muscles. Coordination / Balance: gtwznz-oa-qxga test normal Speech: speech abnormal Gait (Neuro): [...] reviewed with patient . Quincy Simpson MD Divisional Merchandising Manager, [facility] Divisions of Medical Oncology Hematology Department of Internal Medicine [place] [phone] This note was generated using a voice [...] MD Cosigner Signature: Date (if applicable) CC: MACHINE ROOM ENGINEERLulu Gonzalez; Dr. Santiago Sellers, DO Kya Gonzalez Work Phone: Start: 12-15-2021 End: 12-15-2021 Emergency Department Summary Comments: See Note; NOTES: [facility] Medical Records Department [address] [place] [address] Emergency Department Summary 12/15/21 MR#: [id number] Acct: [id number] Name: MY JAMA Rep #: [id number] : 1960 61 From: Rayray Perez DO PCP: Kya Ciesa, MACHINE ROOM ENGINEER-C Status:DEP ER Location: ED HPI History of [...] worse. Patient denies any fevers or chills. PFSH [facility] Medical History Acid reflux Anemia Cancer related [...] a prescription for a short course of [place]. Patient was instructed to follow-up with Dr. [...] 75.7 H Lymph % (Auto) 11.1 L [place] % (Auto) 11.9 H Eos % (Auto) [...] NP Referrals: Rachel Brooks MD [NON-STAFF] - Ciesa,Kya MACHINE ROOM ENGINEER, MACHINE ROOM ENGINEER-C [Primary Care Provider] - Disposition Disposition: Home, Self Care What to do if you have Problems For any increased pain, shortness of breath, bleeding, nausea or vomiting, chest pain, or any unexpected problems, contact your Primary Care Provider. Call Doctors Registry ([phone]) or report to the closest Emergency Room. Call 911 if necessary. 12/15/212211 <Electronically signed by Rayray Perez DO> Cosigner Signature (if applicable): CC: MACHINE ROOM ENGINEER-C Kya Gonzalez Signed Kya Gonzalez Work Phone: Start: 12-10-2021 End: 12-10-2021 Emergency Department Summary Comments: See Note; NOTES: [facility] Medical Records Department [address] [facility] [place] [address] Emergency Department Summary 12/10/21 MR#: [id number] Acct: [id number] Name: MY JAMA Rep #: [id number] : 1960 61 From: Aiden Pierre DO PCP: YARI Pardo Status:REG ER Location: ED HPI History of Present Illness Chief Complaint: Shortness of Breath Narrative Narrative: as well as history of tracheostomy presenting [id number]-hsy male with history of head and neck [...] is unable to contact anybody on Saturday. [facility] Medical History Acid reflux Anemia Cancer related [...] Provider: Kya Gonzalez NP Referrals: Kya Gonzalez MACHINE ROOM ENGINEER, MACHINE ROOM ENGINEER-C [Primary Care Provider] - Disposition Disposition: Home, Self Care What to do if you have Problems For any increased pain, shortness of breath, bleeding, nausea or vomiting, chest pain, or any unexpected problems, contact your Primary Care Provider. Call Doctors Registry ([phone]) or report to the closest Emergency Room. Call 911 if necessary. 12/10/211821 <Electronically signed by Aiden Pierre DO> Cosigner Signature (if applicable): CC: MACHINE ROOM ENGINEER-C Kya Gonzalez Signed Kya Gonzalez Work Phone: Start: 12-07-2021 End: 12-07-2021 Radiation Oncology Visit Comments: See Note; NOTES: [facility] [place] [place] [address] OFFICE VISIT Date of Service: 12/07/21 1424 MR#: [id number] Acct: [id number] Name: MY JAMA Rep #: [id number] : 1960 From: Santiago Sellers DO Age/Sex: 61/M Location: [facility] [place] Status: Signed Intake Vital Signs 12/07/21 14:25 [...] #30 cap 05/17/21 [Rx Confirmed 12/07/21] PFSH PFSH Medical History Acid reflux Anemia [...] lbs 4 oz (weight at end of CLUBHOUSE ATTENDANT 03/25/2019: 126.6 lbs) ECO KARNOFSKY SCORE: 80% [...] at any time. 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 Quincy Simpson MD; Dr. Rachel Brooks MD; MD Kya Felix Work Phone: Start: 12-05-2021 End: 12-18-2021 Emergency Department Summary Comments: See Note; NOTES: [facility] Medical Records Department [address] [place] [address] Emergency Department Summary 12/05/21 MR#: [id number] Acct: [id number] Name: MY JAMA Rep #: [id number] : 1960 61 From: Avinash Rod DO PCP: YARI Pardo Status:REG ER Location: ED HPI Narrative Narrative: Patient is a 61-year-old male who has a history of jaw/throat cancer. He was recently at the [facility] for surgery of this jaw/throat cancer and [...] done with his recent stay at the [facility] and therefore does not want them obtained [...] Provider: Kya Gonzalez NP Referrals: Kya Gonzalez NP, MACHINE ROOM ENGINEER-C [Primary Care Provider] - Disposition Disposition: Home, Self Care What to do if you have Problems For any increased pain, shortness of breath, bleeding, nausea or vomiting, chest pain, or any unexpected problems, contact your Primary Care Provider. Call [facility] ([phone]) or report to the closest Emergency Room. Call 911 if necessary. 12/05/21 0516 <Electronically signed by Avinash Rod DO> Cosigner Signature (if applicable): CC: YARI Gonzalez Signed Kya Gonzalez Work Phone: Start: 10-11-2021 End: 10-13-2021 PET/CT Tumor Base -Thigh Subs Comments: See Note; NOTES: [facility] Imaging Services [address] [place] [address] PET/CT Tumor Base -Thigh Subs MR#: [id number] Acct: [id number] Name: MY JAMA Rep #: [id number] : 1960 M 61 From: Narendra Seay PCP: YARI Pardo Status: REG RCR Study: PET/CT Tumor Base -Thigh Subs Date of Exam: Exam# [id number] Ordering Dr: Quincy Simpson MD EXAMINATION: FDG [...] this report are calculated using the exclusive [employer]. (U.S. Patent No. 10, 674, 983). Standardization and correction of the FDG SUV metric via ACCUQUAN technology allow for vendor non-specific objective quantitative examination comparison and optimization of the sensitivity and specificity of the FDG PET-CT examination. Electronically Signed: Narendra Weathers DO at 22:31 EST Tel , Service support , CC: YARI Gonzalez; Dr. Quincy Simpson MD Leasing Professional: Signed Kya Gonzalez DIRECTOR [facility] [facility] Work Phone: Start: 10-11-2021 PET/CT Tumor Base -Thigh Subs MACHINE ROOM ENGINEER-Damaris Gonzalez MACHINE ROOM ENGINEER Work Phone: Start: 08-23-2021 CT of soft tissues of neck with contrast MACHINE ROOM ENGINEER-Damaris Gonzalez MACHINE ROOM ENGINEER Work Phone: Start: 08-23-2021 End: 08-24-2021 Chest PA and Lateral Comments: See Note; NOTES: [facility] Imaging Services [address] [place] [address] Chest PA and Lateral MR#: [id number] Acct: [id number] Name: MY JAMA Rep #: [id number] : 1960 M 61 From: Bib ghosh MD PCP: YARI Pardo Status: REG RCR Study: Chest PA and Lateral Date of Exam: 08/23/21 Exam# [id number] Ordering Dr: Joya Galvez NP P-C STUDY: X-RAY CHEST REASON FOR EXAM: [...] support , CC: YARI Galvez; YARI Gonzalez Leasing Professional: Signed Kya Gonzalez DIRECTOR [employer] Work Phone: Start: 08-23-2021 Plain chest X-ray MACHINE ROOM ENGINEERLulu Gonzalez MACHINE ROOM ENGINEER Work Phone: Start: 08-23-2021 End: 08-24-2021 Soft Tissue Neck WITH Contrast Comments: See Note; NOTES: [facility] Imaging Services [address] [place] [address] Soft Tissue Neck WITH Contrast MR#: [id number] Acct: [id number] Name: MY JAMA Rep #: [id number] : 1960 M 61 From: Bib ghosh MD PCP: ERWIN PardoC Status: REG CLI Study: Soft Tissue Neck WITH Contrast Date of Exam: 10/24/20 Exam# [id number] Ordering Dr: Santiago Sellers DO STUDY: CT [...] destruction involving the mid anterior aspect of the". The transverse dimension of the destruction measures 2.1 cm. I suspect a 2.6 cm x 3.7 cm soft tissue mass overlying the anterior aspect of the midportion of the mandible. A neoplastic process should be. Normal bilateral parotid glands. Normal bilateral storage management consultant spaces. Normal bilateral parapharyngeal spaces. Normal bilateral [...] CC: YARI Gonzalez; Dr. Santiago Sellers DO Leasing Professional: Signed Kya Gonzalez CNP Work Phone: Start: 08-23-2021 End: 08-23-2021 [facility] Consult Comments: See Note; NOTES: [facility] [address] [place] [address] Consultation - Wound Care [facility] 08/23/21 0904 MR#: [id number] Acct: [id number] Name: MY JAMA Rep #: [id number] : 1960 61 From: Joya BUNN PCP: YARI Pardo Status:REG RCR Location: Assessment Plan Assessment/Plan (1) Necrosis of tissue [...] 1 treatment per day for 30 days [facility] Medical History Acid reflux Anemia Cancer related [...] Start: 08/23/21 08:10 Freq: Status: Active Protocol: BRANDAN Activity Type Activity Date Activity User E-Sign Co-Sign Detail Recorded Client Recorded Date Recorded By Document 08/23/21 08:11 VIC [id number] 08/23/21 08:25 VIC 08/23/21 08:11 WC - Today's Visit Information Type of [...] Mean (mm Hg) 109 Source Manual 08/23/21 09 <Electronically signed by Joya Galvez NP MACHINE ROOM ENGINEER-C> Cosigner Signature (if applicable): CC: Signed Kya Gonzalez [facility] Work Phone: Start: 08-11-2021 End: 08-11-2021 Radiation Oncology Visit Comments: See Note; NOTES: [facility] Cancer Care [address] [place] [address] OFFICE VISIT Date of Service: 08/11/21 1036 MR#: [id number] Acct: [id number] Name: MY JAMA Rep #: [id number] : 1960 From: Santiago Sellers DO Age/Sex: 61/M [place] [facility] [place]: Signed Intake Vital Signs 08/11/21 10:36 Weight: 129 lb 2 oz BP 181/82 H Blood Pressure Location Lt brachial Position Sitting Respiration 14 Pulse 82 Pulse Source Monitor Temp 98.2 F Temperature Source Tympanic Pulse Oximetry (%) 100 Oxygen Delivery Method room air Intake Visit Reasons: FOLLOWUP HEAD/NECK Chief Complaint: squamous cell cancer of the head and neck follow-up Tunnel Heading Inspector Required: No Is patient in pain?: No [...] lbs 2 oz (weight at end of CLUBHOUSE ATTENDANT 03/25/2019: 126.6 lbs) ECO KARNOFSKY SCORE: 80% [...] He will also continue to follow-up with VACUUM DRIER OPERATOR as indicated but is swallowing well. He [...] at any time. Santiago Sellers DO, MS Divisional Merchandising Manager, Department of Radiation Oncology [facility] Coding Level of Care Code Off vis,est,level 3 Diagnoses History of head and neck cancer Z85.89 08/11/21 1124 <Electronically signed by Santiago Sellers DO> Date Santiago Sellers DO Cosigner Signature: Date (if applicable) CC: YARI Gonzalez; Dr. Renny Burgos MD; Dr. Quincy Simpson MD; Dr. Crescencio Morales DDS Kya Gonzalez CNP Work Phone: Start: 07-18-2021 End: 07-19-2021 Emergency Department Summary Comments: See Note; NOTES: [facility] Medical Records Department [address] [place] [address] Emergency Department Summary 07/18/21 MR#: [id number] Acct: [id number] Name: MY JAMA Rep #: [id number] : 1960 61 From: Jason Robles DO PCP: ERWIN PardoC Status:DEP ER Location: ED HPI History of [...] was concerned about potential for systemic infection. [facility] Medical History (Updated 07/18/21 @ 15:[address] Jason Robles DO) Acid reflux Anemia Cancer related pain [...] % (Auto) 65.9 Lymph % (Auto) 20.1 [place] % (Auto) 11.9 H Eos % (Auto) [...] Provider: Kya Gonzalez NP Referrals: Kya Gonzalez NP, MACHINE ROOM ENGINEER-C [Primary Care Provider] - 3-5 Days Disposition Disposition: Home, Self Care What to do if you have Problems For any increased pain, shortness of breath, bleeding, nausea or vomiting, chest pain, or any unexpected problems, contact your Primary Care Provider. Call [facility] ([phone]) or report to the closest Emergency Room. Call 911 if necessary. 07/18/21 1554 <Electronically signed by Jason Robles DO> Cosigner Signature (if applicable): CC: MACHINE ROOM ENGINEER-Damaris Gonzalez Signed Kya Gonzalez DIRECTOR [employer] Work Phone: Start: 07-18-2021 End: 07-18-2021 CTA Head AND Neck W/ Contrast Comments: See Note; NOTES: [facility] Imaging Services [address] [place] [address] CTA Head AND Neck W/ Contrast MR#: [id number] Acct: [id number] Name: MY JAMA Rep #: [id number] : 1960 M 61 From: Bib ghosh MD PCP: Kya Ciesa, MACHINE ROOM ENGINEER-C Status: REG ER Study: CTA Head AND Neck W/ Contrast Date of Exam: Exam# [id number] Ordering Dr: Jason Robles DO STUDY: CTA [...] There is no demonstrated aneurysm of the [place] of [place]. A tiny lacuna is seen [...] CC: YARI Gonzalez; Dr. Jason Robles DO Leasing Professional: Signed Kya Gonzalez CNP Work Phone: Start: 05-15-2021 End: 05-15-2021 Radiation Oncology Visit Comments: See Note; NOTES: [facility] Care [address] [place] [address] OFFICE VISIT Date of Service: 05/15/21 1058 MR#: [id number] Acct: [id number] Name: MY JAMA Rep #: [id number] : 1960 From: Santiago Sellers DO Age/Sex: 60/M Location[place] [facility] [place] Status: Signed Intake Vital Signs 05/15/21 10:58 Weight: 124 lb BP 166/85 H Blood Pressure Location Lt brachial Position Sitting Respiration 14 Pulse 86 Pulse Source Monitor Temp 98.2 F Temperature Source Tympanic Pulse Oximetry (%) 98 Oxygen Delivery Method room air Intake Visit Reasons: FOLLOWUP HEAD/NECK CANCER Chief Complaint: squamous cell cancer of the head and neck follow-up Tunnel Heading Inspector Required: No Is patient in pain?: No Allergies No Known Allergies Allergy (Verified 05/15/21 11:01) Medications Levothyroxine PO 08/25/20 [History Confirmed 05/15/21] [facility] Medical History (Updated 03/20/21 @ 11:52 by [...] Weight: 124 lbs (weight at end of CLUBHOUSE ATTENDANT 03/25/2019: 126.6 lbs) ECO KARNOFSKY SCORE: 80% [...] He will also continue to follow-up with VACUUM DRIER OPERATOR as indicated but is swallowing well. He [...] at any time. Santiago Sellers DO, MS Divisional Merchandising Manager, Department of Radiation Oncology [facility] Coding Level of Care Code Off vis,est,level 3 Diagnoses History of head and neck cancer Z85.89 05/15/21 1124 <Electronically signed by Santiago Sellers DO> Date Santiago Sellers DO Cosigner Signature: Date (if applicable) CC: MACHINE ROOM ENGINEER-C Kya Gonzalez; Dr. Renny Burgos MD; MD Kya Zaman DIRECTOR [employer] Work Phone: Start: 03-20-2021 End: 03-20-2021 Radiation Oncology Visit Comments: See Note; NOTES: [facility] Care [address] [place] [address] OFFICE VISIT Date of Service: 03/20/21 1101 MR#: [id number] Acct: [id number] Name: ANAMY W Rep #: [id number] : 1960 From: Santiago Sellers DO Age/Sex: 60/M Location[place] [facility] [place] Status: Signed Intake Vital Signs 03/20/21 11:01 Weight: 122 lb BP 156/84 H Blood Pressure Location Rt brachial Respiration 14 Pulse 101 H Pulse Source Monitor Temp 98 F Temperature Source Tympanic Pulse Oximetry (%) 95 Oxygen Delivery Method room air Intake Visit Reasons: [place] Chief Complaint: squamous cell cancer of the head and neck follow-up Tunnel Heading Inspector Required: No Is patient in pain?: No Allergies No Known Allergies Allergy (Verified 03/20/21 11:04) Medications Levothyroxine PO 08/25/20 [History Confirmed 03/20/21] PFSH PFSH Medical History (Updated 03/20/21 @ 11:[address] Santiago Sellers, ) Acid reflux Anemia Cancer related pain [...] Weight: 122 lbs (weight at end of CLUBHOUSE ATTENDANT 03/25/2019: 126.6 lbs) ECO KARNOFSKY SCORE: 80% [...] He will also continue to follow-up with VACUUM DRIER OPERATOR as indicated but is swallowing well. He [...] at any time. Santiago Sellers DO, MS Divisional Merchandising Manager, Department of Radiation Oncology [facility] Coding Level of Care Code Off vis,est,level 3 Diagnoses History of head and neck cancer Z85.89 03/20/21 1202 <Electronically signed by Santiago Sellers DO> Date Santiago Sellers DO Cosigner Signature: Date (if applicable) CC: YARI Gonzalez; Dr. Renny Burgos MD; MD Kya Zaman DIRECTOR [employer] Work Phone: Start: 03-08-2021 End: 03-08-2021 Oncology Visit Report Comments: See Note; NOTES: [facility] [address] [place] [address] OFFICE VISIT Date of Service: 03/08/21 0950 MR#: [id number] Acct: [id number] Name: MY AJMA Rep #: [id number] : 1960 From: Quincy Simpson MD Age/Sex: 60/M Location: [facility] [place] Status: Signed HPI Subjective Date of Service [...] FINDINGS: Supraclavicular: No acute process within the kcbye-lx-bozi. Body wall soft tissues: No acute process. [...] AE1-3 (AE1/AE3/PCK26) positive CK7 (OV-TL12/30) negative CK8 (08zntbI54) positive, weak CK20 (KS20.8) negative TTF-1 (8G7G3/1) [...] Treatment: 02/10/2019 Date of Last Treatment: 03/25/2019 [facility] Medical History (Updated 03/08/21 @ 10:22 by [...] 100 Oxygen Delivery Method room air Intake Tunnel Heading Inspector Required: No Accompanied by: Self Is patient [...] no focal motor deficits Coordination / Balance: npling-pz-rqah test normal Speech: speech normal Gait (Neuro): [...] reviewed with patient . Quincy Simpson MD Divisional Merchandising Manager, [facility] Divisions of Medical Oncology Hematology Department of Internal Medicine [place] [address] This note was generated using a voice [...] MD Cosigner Signature: Date (if applicable) CC: MACHINE ROOM ENGINEER-C Kya Gonzalez DIRECTOR [employer] Work Phone: Start: 02-27-2021 End: 02-27-2021 Chest WITH Contrast Comments: See Note; NOTES: [facility] Imaging Services [address] [place] [address] Chest WITH Contrast MR#: [id number] Acct: [id number] Name: MY JAMA Rep #: [id number] : 1960 M 60 From: Bib ghosh MD PCP: YARI Pardo Status: REG CLI Study: Chest WITH Contrast Date of Exam: 02/27/21 Exam# [id number] Ordering Dr: Quincy Simpson MD STUDY: CT [...] CC: YARI Gonzalez; Dr. Quincy Simpson MD Leasing Professional: Signed Kya Gonzalez CNP Work Phone: Start: 11-28-2020 End: 11-28-2020 Oncology Visit Report Comments: See Note; NOTES: [facility] [address] [place] [address] OFFICE VISIT Date of Service: 11/28/20 1544 MR#: [id number] Acct: [id number] Name: MY JAMA Rep #: [id number] : 1960 From: Quincy Simpson MD Age/Sex: [...] FINDINGS: Supraclavicular: No acute process within the jssct-mr-xgdl. Body wall soft tissues: No acute process. [...] AE1-3 (AE1/AE3/PCK26) positive CK7 (OV-TL12/30) negative CK8 (27yfhsP28) positive, weak CK20 (KS20.8) negative TTF-1 (8G7G3/1) [...] reviewed with patient . Quincy Simpson MD Divisional Merchandising Manager, [facility] Divisions of Medical Oncology Hematology Department of Internal Medicine [place] [address] This note was generated using a voice [...] MD Cosigner Signature: Date (if applicable) CC: MACHINE ROOM ENGINEERLulu Gonzalez Start: 10-31-2020 End: 10-31-2020 Oncology Follow-Up Visit Comments: See Note; NOTES: [facility] Medical Records Department [address] [place] [address] Oncology Follow-Up Visit 10/31/20 1611 MR#: [id number] Acct: [id number] Name: MY JAMA Rep #: [id number] : 1960 60 From: Santiago Sellers DO PCP: Kya Gonzalez NP-C Status:REG RCR Y Location: [facility] Date of Service: 10/31/20 Last Clinic Visit: [...] Weight: 128.2 lbs (weight at end of CLUBHOUSE ATTENDANT 03/25/2019: 126.6 lbs) Vital Signs Temperature 99.4 [...] will also continue to follow- up with VACUUM DRIER OPERATOR as indicated but is swallowing well. He [...] in the interim. Santiago Sellers DO, MS Divisional Merchandising Manager, Department of Radiation Oncology [facility] 10/31/20 1622 <Electronically signed by Santiago Sellers DO> Date Santiago Sellers DO CC: Dr. Renny Burgos MD; Dr. Quincy Simpson MD Signed Kya Gonzalez Start: 09-02-2020 End: 09-02-2020 Chest WITH Contrast Comments: See Note; NOTES: [facility] Imaging Services [address] [facility] [address] Chest WITH Contrast MR#: [id number] Acct: [id number] Name: MY JAMA Rep #: [id number] : 1960 M 60 From: Gin Tyler PCP: ERWIN PardoC Status: REG CLI Study: Chest WITH Contrast Date of Exam: 09/02/20 Exam# [id number] Ordering Dr: Quincy Simpson MD STUDY: CT [...] EST Tel , Service support , CC: YARI Gonzalez; Dr. Quincy Simpson MD Leasing Professional: Signed Kya Gonzalez Start: 08-25-2020 End: 08-25-2020 Oncology Visit Report Comments: See Note; NOTES: [facility] Cancer [address] [address] OFFICE VISIT Date of Service: 08/25/20 1506 MR#: [id number] Acct: [id number] Name: MY JAMA Rep #: [id number] : 1960 From: Quincy Simpson MD Age/Sex: [...] FINDINGS: Supraclavicular: No acute process within the ewzbq-ro-cane. Body wall soft tissues: No acute process. [...] AE1-3 (AE1/AE3/PCK26) positive CK7 (OV-TL12/30) negative CK8 (63iaygS76) positive, weak CK20 (KS20.8) negative TTF-1 (8G7G3/1) [...] Dysphagia - Certain food items such as "hamburger" need help with sips of liquid. Denies: [...] reviewed with patient . Quincy Simpson MD Divisional Merchandising Manager, [facility] Divisions of Medical Oncology Hematology Department of Internal Medicine [place] [facility] [place] [address] This note was generated using a voice [...] MD Cosigner Signature: Date (if applicable) CC: Dr. Renny Burgos MD; Dr. Santiago Sellers, DO Kya Gonzalez Start: 04-13-2020 End: 04-14-2020 Oncology Visit Report Comments: See Note; NOTES: [facility] [place] [address] OFFICE VISIT Date of Service: 04/13/20 1512 MR#: [id number] Acct: [id number] Name: MY JAMA Rep #: [id number] : 1960 From: Quincy Simpson MD Age/Sex: [...] FINDINGS: Supraclavicular: No acute process within the eboey-bv-jbcb. Body wall soft tissues: No acute process. [...] AE1-3 (AE1/AE3/PCK26) positive CK7 (OV-TL12/30) negative CK8 (90iyakM09) positive, weak CK20 (KS20.8) negative TTF-1 (8G7G3/1) [...] reviewed with patient . Quincy Simpson MD Divisional Merchandising Manager, [facility] Divisions of Medical Oncology Hematology Department of Internal Medicine [address] [address] This note was generated using a voice [...] Oncology Follow-Up Visit Comments: See Note; NOTES: [facility] Medical Records Department [address] [place] [address] Oncology Follow-Up Visit 04/12/20 1543 MR#: [id number] Acct: [id number] Name: MY JAMA Rep #: [id number] : 1960 59 From: Santiago Sellers DO PCP: YARI Pardo Status:REG RCR Y Location: [facility] Date of Service: 04/12/20 Last Clinic Visit: [...] Weight: 128.8 lbs (weight at end of CLUBHOUSE ATTENDANT 03/25/2019: 126.6 lbs) Vital Signs Temperature 97.3 [...] He will also continue to follow-up with VACUUM DRIER OPERATOR for continued improvement of his swallowing, he [...] concerns in the interim. Santiago Sellers DO, Divisional Merchandising Manager, Department of Radiation Oncology [facility] 04/12/20 9453 <Electronically signed by Santiago Sellers DO> Date Santiago Sellers DO CC: Dr. Renny Burgos MD; Dr. Quincy Simpson MD Signed Kya Gonzalez Start: 04-06-2020 End: 04-06-2020 Chest WITH Contrast Comments: See Note; NOTES: [facility] Imaging Services [address] [place] [address] Chest WITH Contrast MR#: [id number] Acct: [id number] Name: MY JAMA Rep #: [id number] : 1960 59 From: Jono Ackerman i, MD PCP: Kya Gonzalez, MACHINE ROOM ENGINEER-C Status: REG CLI Study: Chest WITH Contrast Date of Exam: 04/06/20 Exam# [id number] Ordering Dr: Quincy Simpson MD STUDY: CT [...] CC: YARI Gonzalez; Dr. Quincy Simpson MD Leasing Professional: Signed Kya Gonzalez Start: 03-30-2020 End: 03-30-2020 Modified Barium Swallow Study Comments: See Note; NOTE S: [facility] Speech Pathology [address] [place] [address] Modified Barium Swallow Study MR#: [id number] Acct: [id number] Name: MY JAMA Rep #: [id number] : 1960 59 From: Diomedes Bentley M.A., [facility]-VACUUM DRIER OPERATOR PRIMARY / SECONDARY DIAGNOSIS: dysphagia (R13.12) CURRENT [...] with purees. IMAGE COUNT: Diomedes Bentley M.A., [facility]-VACUUM DRIER OPERATOR, CBIS MBSImP Certified, LSVT Certified [facility] Speech-Language Pathology Department Email: [email or web address] 03/30/201800 <Electronically signed by Diomedes Bentley M.A., [facility]-S LP> Date Diomedes Tia Bentley M.A., CCC-VACUUM DRIER OPERATOR Co-Signature Required for all Medicare patients Date/Time _ Co-Signature CC: Kya Gonzalez Start: 01-13-2020 End: 01-13-2020 Oncology Visit Report Comments: See Note; NOTES: [facility] [address] [place] [address] OFFICE VISIT Date of Service: 01/13/20 1307 MR#: [id number] Acct: [id number] Name: MY JAMA Rep #: [id number] : 1960 From: Quincy Simpson MD Age/Sex: [...] FINDINGS: Supraclavicular: No acute process within the yikrh-an-inud. Body wall soft tissues: No acute process. [...] AE1-3 (AE1/AE3/PCK26) positive CK7 (OV-TL12/30) negative CK8 (62htokE63) positive, weak CK20 (KS20.8) negative TTF-1 (8G7G3/1) [...] reviewed with patient . Quincy Simpson MD Divisional Merchandising Manager, [facility] Divisions of Medical Oncology AND Hematology Department of Internal Medicine [place] [address] This note was generated using a voice [...] Oncology Visit Report Comments: See Note; NOTES: [facility] [address] [place] [address] OFFICE VISIT Date of Service: 10/14/19 1303 MR#: [id number] Acct: [id number] Name: MY JAMA Rep #: [id number] : 1960 From: Quincy Simpson MD Age/Sex: [...] FINDINGS: Supraclavicular: No acute process within the kqiqg-hu-bcew. Body wall soft tissues: No acute process. [...] AE1-3 (AE1/AE3/PCK26) positive CK7 (OV-TL12/30) negative CK8 (03ikipY60) positive, weak CK20 (KS20.8) negative TTF-1 (8G7G3/1) [...] of the first interosseous space muscles predating [place] therapy Skin:: Negative for: Lesions, Rash, Petechiae, [...] reviewed with patient . Quincy Simpson MD Divisional Merchandising Manager, [facility] Divisions of Medical Oncology AND Hematology Department of Internal Medicine [place] [address] This note was generated using a voice [...] Provider: Kya Gonzalez NP Referring Provider: 10/14/19 9051 <Electronically signed by Quincy Simpson MD> Date Quincy Simpson MD Cosigner Signature: Date (if applicable) CC: Santiago Verito, DO Kya Gonzalez Start: 10-07-2019 End: 10-07-2019 Chest WITH Contrast Comments: See Note; NOTES: [facility] Imaging Services [address] [address] Chest WITH Contrast MR#: [id number] Acct: [id number] Name: MY JAMA Rep #: [id number] : 1960 M 59 From: Primo Medina DO PCP: ERWIN PardoC Status: REG CLI Study: Chest WITH Contrast Date of Exam: 10/07/19 Exam# [id number] Ordering Dr: Quincy Simpson MD STUDY: CT [...] Primo Medina DO at 22:52 EST Tel [phone], Service support , CC: YARI Gonzalez; Quincy Simpson MD Leasing Professional: Signed Kya Katharinachioma Start: 10-01-2019 End: 10-01-2019 Oncology Follow-Up Visit Comments: See Note; NOTES: [facility] Medical Records Department [address] [place] [address] Oncology Follow-Up Visit 10/01/19 1541 MR#: [id number] Acct: [id number] Name: MY JAMA Rep #: [id number] : 1960 59 From: Santiago Sellers DO PCP: YARI Pardo Status: REG RCR Y Location: [facility] Date of Service: 10/01/19 Last Clinic Visit: [...] Weight: 124 lbs (weight at end of CLUBHOUSE ATTENDANT 03/25/2019: 126.6 lbs) Vital Signs Temperature 99 [...] He will also continue to follow-up with VACUUM DRIER OPERATOR for continued improvement of his swallowing. He [...] further questions or concerns in the interim. Santigao Sellers DO, MS Divisional Merchandising Manager, Department of Radiation Oncology [facility] 10/01/19 0012 <Electronically signed by Santiago Sellers DO> Date Santiago Sellers DO CC: Rachel Brooks MD; Jim Burgos MD; Quincy Simpson MD Signed Kya Gonzalez Start: 07-16-2019 End: 07-16-2019 Oncology Visit Report Comments: See Note; NOTES: [facility] [address] [place] [address] OFFICE VISIT Date of Service: 07/16/19 1356 MR#: [id number] Acct: [id number] Name: MY JAMA Rep #: [id number] : 1960 From: Quincy Simpson MD Age/Sex: [...] FINDINGS: Supraclavicular: No acute process within the fyagx-iz-iomr. Body wall soft tissues: No acute process. [...] AE1-3 (AE1/AE3/PCK26) positive CK7 (OV-TL12/30) negative CK8 (78dbnqL89) positive, weak CK20 (KS20.8) negative TTF-1 (8G7G3/1) [...] reviewed with patient . Quincy Simpson MD Divisional Merchandising Manager, [facility] Divisions of Medical Oncology AND Hematology Department of Internal Medicine [facility] [place] [address] This note was generated using a voice [...] <Electronically signed by Quincy Simpson MD> Date Qunicy Simpson MD Cosigner Signature: Date (if applicable) CC: Kya Gonzalez Start: 07-02-2019 End: 07-02-2019 Oncology Follow-Up Visit Comments: See Note; NOTES: [facility] Medical Records Department [address] [place] [address] Oncology Follow-Up Visit 07/02/19 1412 MR#: [id number] Acct: [id number] Name: MY JAMA Rep #: [id number] : 1960 59 From: Santiago Sellers PCP: Kya Gonzalez, MACHINE ROOM ENGINEER-C Status: REG RCR Y Location: [facility] Date of Service: 07/02/19 Last Clinic Visit: [...] Weight: 121 lbs (weight at end of CLUBHOUSE ATTENDANT 03/25/2019: 126.6 lbs) Vital Signs Temperature 100.3 [...] the clinical situation. PROCEDURE PERFORMED: Right Flexible Aadt-Silwdwcc-Zwnrhpdplrhk. CONSENT: Verbal informed consent was obtained prior [...] He will also continue to follow-up with VACUUM DRIER OPERATOR for continued improvement of his swallowing. He [...] in the interim. Santiago Sellers DO, MS Divisional Merchandising Manager, Department of Radiation Oncology [facility] 07/02/19 0160 <Electronically signed by Santiago Sellers DO> Date Santiago Sellers DO CC: Rachel Brooks MD; Jim Burgos MD; Quincy Simpson MD Signed Kya Gonzalez Start: 06-29-2019 PET/CT Tumor Base -Thigh Subs MACHINE ROOM ENGINEER-C Kya Gonzalez MACHINE ROOM ENGINEER Work Phone: Start: 06-26-2019 End: 06-26-2019 Modified Barium Swallow Study Comments: See Note; NOTE S: [facility] Speech Pathology [address] [place] [address] Modified Barium Swallow Study MR#: [id number] Acct: [id number] Name: MY JAMA Rep #: [id number] : 1960 59 From: Diomedes Bentley M.A., [facility]-VACUUM DRIER OPERATOR PRIMARY / SECONDARY DIAGNOSIS: dysphagia (R13.12) REFERRING [...] Thin liquids via straw (chin tuck): 1 [place] thickened liquids via straw (single sip): 1 [place] thickened liquids via straw (single sip): 1 [place] thickened liquids via straw (single sip): 1 [...] at a time with purees. IMAGE COUNT: [id number] Diomedes Bentley M.A., MARCIA-VACUUM DRIER OPERATOR, CBIS MBSImP Certified, LSVT Certified [facility] Speech-Language Pathology Department [email or web address] 06/26/194 <Electronically signed by Diomedes Bentley M.A., CCC-VACUUM DRIER OPERATOR> Date Diomedes Bentley M.A., CCC-VACUUM DRIER OPERATOR Co-Signature Required for all Medicare patients Date/Time _ Co-Signature CC: Kya Gonzalez Start: 06-26-2019 End: 06-26-2019 Swallowing Function w/Video Comments: See Note; NOTES: [facility] Imaging Services [address] [place] [address] Swallowing Function w/Video MR#: [id number] Acct: [id number] Name: MY JAMA Yamilet Rep #: [id number] : 1960 M 59 From: Bib Reeves MD PCP: Kya Gonzalez, MACHINE ROOM ENGINEER-C Status: REG CLI Study: Swallowing Function w/Video Date of Exam: 06/26/19 Exam# [id number] Ordering Dr: Santiago Sellers DO STUDY: SWALLOWING [...] more information and recommendations. Electronically Signed: Bib Reeves, at 14:50 EDT , Service support , CC: YARI Gonzalez; Santiago Sellers DO Leasing Professional: Signed Kya Gonzalez Start: 06-26-2019 End: 06-30-2019 PET/CT Tumor Base -Thigh Subs Comments: See Note; NOTE S: [facility] Imaging Services [address] [place] [address] PET/CT Tumor Base -Thigh Subs MR#: [id number] Acct: [id number] Name: MY JAMA Rep #: [id number] : 1960 M 59 From: Narendra Weathers DO PCP: YARI Pardo Status: REG RCR Study: PET/CT Tumor Base -Thigh Subs Date of Exam: 06/29/19 Exam# [id number] Ordering Dr: Quincy Simpson MD EXAMINATION: FDG [...] change attributed to apparent feeding tube placement. Pdfz-N-Whxe-MediPort placement is noted. The prior defined morphologic-anatomic [...] , CC: YARI Gonzalez; Quincy Simpson MD Leasing Professional: Signed Kya Gonzalez Start: 06-08-2019 End: 06-08-2019 Oncology Visit Report Comments: See Note; NOTES: [facility] [address] [place] [address] OFFICE VISIT Date of Service: 06/08/19 1312 MR#: [id number] Acct: [id number] Name: MY JAMA Rep #: [id number] : 1960 From: Marce BUNN Age/Sex: 58/M [...] FINDINGS: Supraclavicular: No acute process within the rvkve-ss-ssms. Body wall soft tissues: No acute process. [...] AE1-3 (AE1/AE3/PCK26) positive CK7 (OV-TL12/30) negative CK8 (07tvkjL97) positive, weak CK20 (KS20.8) negative TTF-1 (8G7G3/1) [...] team. Engaged in lengthy conversation regarding potential terminal worker/late side effects associated with chemotherapy exposure, recommendations [...] end of his treatment. Accepts referral to [facility] Tobacco Cessation Program. RTO on 07/16/19 to review results of PET/CT with Dr. 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 Marce Maxwell, ADMINISTRATIVE PROFESSIONAL-DIRECTOR [employer], AOCNP Medications: Prescriptions This Visit Medication Instructions [...] of Treatment Summary Comments: See Note; NOTES: [facility] [address] [facility] [place], [place] [address] End of Treatment Summary Date of Service: 05/27/19 1618 MR#: [id number] Acct: [id number] Name: MY JAMA Rep #: [id number] : 1960 From: Marce BUNN Age/Sex: 58/M [...] 6-12 months Coordination Provider:: Quincy Simpson - Nathaly July 2020 When/How often:: CT chest for [...] Cosigner Signature: Date (if applicable) CC: YARI Riveromeganchioma Start: 05-19-2019 End: 05-19-2019 Oncology Visit Report Comments: See Note; NOTES: [facility] [address] [place] [address] OFFICE VISIT Date of Service: 05/19/19 1136 MR#: [id number] Acct: [id number] Name: MY JAMA Rep #: [id number] : 1960 From: Quincy Simpson MD Age/Sex: [...] FINDINGS: Supraclavicular: No acute process within the blssh-tf-hhbn. Body wall soft tissues: No acute process. [...] AE1-3 (AE1/AE3/PCK26) positive CK7 (OV-TL12/30) negative CK8 (69ghtxU31) positive, weak CK20 (KS20.8) negative TTF-1 (8G7G3/1) [...] with patient and family. Quincy Simpson MD Divisional Merchandising Manager, [facility] Divisions of Medical Oncology AND Hematology Department of Internal Medicine [place] [phone] This note was generated using a voice [...] Provider: Kya Gonzalez NP Referring Provider: 05/19/19 1156 <Electronically signed by Quincy Simpson MD> Date Quincy Simpson MD Cosigner Signature: Date (if applicable) CC: DO Kya Jorgensen Start: 05-13-2019 End: 05-14-2019 Chest WITH Contrast Comments: See Note; NOTES: [facility] Imaging Services [address] [place] [address] Chest WITH Contrast MR#: [id number] Acct: [id number] Name: MY JAMA Rep #: [id number] : 1960 M 58 From: Ric Pelaez MD PCP: Kya Gonzalez NP-C Status: REG CLI Study: Chest WITH Contrast Date of Exam: 05/13/19 Exam# [id number] Ordering Dr: Quincy Simpson MD STUDY: CT [...] , CC: YARI Gonzalez; Quincy Simpson MD Leasing Professional: Signed Kya Gonzalez Start: 04-28-2019 End: 04-28-2019 Oncology Visit Report Comments: See Note; NOTES: [facility] [address] [place] [address]. [place] [address] OFFICE VISIT Date of Service: 04/28/19 1148 MR#: [id number] Acct: [id number] Name: MY JAMA Rep #: [id number] : 1960 From: Quincy Simpson MD Age/Sex: [...] FINDINGS: Supraclavicular: No acute process within the wktmg-xf-xmes. Body wall soft tissues: No acute process. [...] AE1-3 (AE1/AE3/PCK26) positive CK7 (OV-TL12/30) negative CK8 (18zlzyI08) positive, weak CK20 (KS20.8) negative TTF-1 (8G7G3/1) [...] reviewed with patient . Quincy Simpson MD Divisional Merchandising Manager, [facility] Divisions of Medical Oncology AND Hematology Department of Internal Medicine [place] [address] This note was generated using a voice [...] Oncology Visit Report Comments: See Note; NOTES: [facility] [address] [place] [address] OFFICE VISIT Date of Service: 04/21/19 1142 MR#: [id number] Acct: [id number] Name: MY JAMA Rep #: [id number] : 1960 From: Quincy Simpson MD Age/Sex: [...] FINDINGS: Supraclavicular: No acute process within the fygfp-sg-qmsd. Body wall soft tissues: No acute process. [...] AE1-3 (AE1/AE3/PCK26) positive CK7 (OV-TL12/30) negative CK8 (83sbtxY98) positive, weak CK20 (KS20.8) negative TTF-1 (8G7G3/1) [...] reviewed with patient . Quincy Simpson MD Divisional Merchandising Manager, [facility] Divisions of Medical Oncology AND Hematology Department of Internal Medicine [address] [address] This note was generated using a voice [...] 1,000 ml Med 04/21/19 11:30 Active IV TuTh Primary Care Provider: Kya Gonzalez NP Referring Provider: 04/21/19 1144 <Electronically signed by Quincy Simpson MD> Date Quincy Simpson MD Cosigner Signature: Date (if applicable) CC: Kya Gonzalez Start: 04-13-2019 End: 04-13-2019 Oncology Visit Report Comments: See Note; NOTES: [facility] [address] [id number] OFFICE VISIT Date of Service: 04/13/19 0940 MR#: [id number] Acct: [id number] Name: MY JAMA Rep #: [id number] : 1960 From: Quincy Simpson MD Age/Sex: [...] FINDINGS: Supraclavicular: No acute process within the kdfzt-wd-jlov. Body wall soft tissues: No acute process. [...] AE1-3 (AE1/AE3/PCK26) positive CK7 (OV-TL12/30) negative CK8 (20gguyD78) positive, weak CK20 (KS20.8) negative TTF-1 (8G7G3/1) [...] reviewed with patient . Quincy Simpson MD Divisional Merchandising Manager, [facility] Divisions of Medical Oncology AND Hematology Department of Internal Medicine [facility] [place] [phone] This note was generated using a voice [...] Quincy Simpson MD> Date Quincy Simpson MD [facility] Signature: Date (if applicable) CC: Kya Gonzalez Start: 04-06-2019 End: 04-06-2019 Oncology Follow-Up Visit Comments: See Note; NOTES: [facility] Medical Records Department [address] [place] [address] Oncology Follow-Up Visit 04/06/19 1053 MR#: [id number] Acct: [id number] Name: MY JAMA Rep #: [id number] : 1960 58 From: Santiago Sellers DO PCP: Kya Gonzalez NP Status: REG RCR Y Location: [facility] Date of Service: 04/06/19 Last Clinic Visit: [...] Weight: 121 lbs (weight at end of CLUBHOUSE ATTENDANT 03/25/2019: 126.6 lbs) Vital Signs Temperature 100.3 F H 07/15/19 10:24 Temperature Source Oral 04/06/19 10:24 Pulse [...] in the interim. Santiago Sellers DO, MS Divisional Merchandising Manager, Department of Radiation Oncology [facility] 04/06/19 7772 <Electronically signed by Santiago Sellers DO> Date Santiago Sellers DO CC: Rachel Brooks MD; Quincy Simpson MD Signed Kya Gonzalez Start: 04-06-2019 End: 04-06-2019 Oncology Visit Report Comments: See Note; NOTES: [facility] [address] [place] [address] OFFICE VISIT Date of Service: 04/06/19 1030 MR#: [id number] Acct: [id number] Name: MY JAMA Rep #: [id number] : 1960 From: Quincy Simpson MD Age/Sex: [...] FINDINGS: Supraclavicular: No acute process within the jngyp-jl-yxxp. Body wall soft tissues: No acute process. [...] AE1-3 (AE1/AE3/PCK26) positive CK7 (OV-TL12/30) negative CK8 (96capeR97) positive, weak CK20 (KS20.8) negative TTF-1 (8G7G3/1) [...] reviewed with patient . Quincy Simpson MD Divisional Merchandising Manager, [facility] Divisions of Medical Oncology AND Hematology Department of Internal Medicine [place] [phone] This note was generated using a voice [...] 03-31-2019 Bacteria identified in Blood by Culture MACHINE ROOM ENGINEER-C Kya Gonzalez NP Work Phone: Start: 03-30-2019 End: 03-30-2019 Oncology Visit Report Comments: See Note; NOTES: [facility] [address] [place] [address] [place] [address] OFFICE VISIT Date of Service: 03/30/19 0941 MR#: [id number] Acct: [id number] Name: MY JAMA Yamilet Rep #: [id number] : 1960 From: Quincy Simpson MD Age/Sex: [...] FINDINGS: Supraclavicular: No acute process within the eyoyq-zz-smbz. Body wall soft tissues: No acute process. [...] AE1-3 (AE1/AE3/PCK26) positive CK7 (OV-TL12/30) negative CK8 (42zyqcT83) positive, weak CK20 (KS20.8) negative TTF-1 (8G7G3/1) [...] Right thumb, appears to be induced by "opening cans". Denies: Rash, Wounds Neurological:: Reports: Paresthesias - [...] patient and his daughter. Quincy Simpson MD Divisional Merchandising Manager, [facility] Divisions of Medical Oncology AND Hematology Department of Internal Medicine [facility] [place] [address] This note was generated using a voice [...] of Treatment Summary Comments: See Note; NOTES: [facility] [address] [place] [address] End of Treatment Summary Date of Service: 03/25/19 1125 MR#: [id number] Acct: [id number] Name: MY JAMA Rep #: [id number] : 1960 From: Santiago Verito REN Age/Sex: 58/M Location: [facility] Status: Signed End [...] this patient. Sincerely, Santiago Sellers DO, MS Divisional Merchandising Manager, Department of Radiation Oncology [facility] 03/25/19 1146 <Electronically signed by Santiago Sellers DO> Date Santiago Sellers DO [facility] Signature: Date (if applicable) CC: AJAY Gonzalez; Rachel Brooks MD; Jim Burgos MD; MD Kya Hall Start: 03-25-2019 End: 03-25-2019 Radiation Oncology Visit Comments: See Note; NOTES: [facility] [address] [address] OFFICE VISIT Date of Service: 03/25/19 1118 MR#: [id number] Acct: [id number] Name: MY JAMA Rep #: [id number] : 1960 From: Santiago Sellers DO Age/Sex: [...] and approved. Dysgeusia: severe Odynophagia: grade 2, 7-8/10, reduced intake secondary [...] evidence of withdrawl Continue follow up with VACUUM DRIER OPERATOR and Nutrition Services, will follow up in 2 weeks, continue fluids as planned by med onc Thank you for allowing me to participate in the management and care of your patient. If I may answer any questions in the interim, please do not hesitate to contact me at any time. Santiago Sellers DO Department of Radiation Oncology [facility] 03/25/19 1125 <Electronically signed by Santiago Sellers DO> Date Santiago Sellers DO Cosigner Signature: Date (if applicable) CC: Kya Gonzalez Start: 03-23-2019 End: 03-23-2019 Oncology Visit Report Comments: See Note; NOTES: [facility] [address] [place] [address] OFFICE VISIT Date of Service: 03/23/19 0933 MR#: [id number] Acct: [id number] Name: MY JAMA Rep #: [id number] : 1960 From: Quincy Simpson MD Age/Sex: [...] FINDINGS: Supraclavicular: No acute process within the kbfsg-ld-dovd. Body wall soft tissues: No acute process. [...] AE1-3 (AE1/AE3/PCK26) positive CK7 (OV-TL12/30) negative CK8 (86trhgH37) positive, weak CK20 (KS20.8) negative TTF-1 (8G7G3/1) [...] the combined modality phase Quincy Simpson MD Divisional Merchandising Manager, [facility] Divisions of Medical Oncology AND Hematology Department of Internal Medicine [place] [phone] This note was generated using a voice [...] Radiation Oncology Visit Comments: See Note; NOTES: [facility] [address] [address] OFFICE VISIT Date of Service: 03/18/19 1353 MR#: [id number] Acct: [id number] Name: MY JAMA Rep #: [id number] : 1960 From: Santiago Sellers DO Age/Sex: [...] moist desquamation. No rash Fatigue: mild Pain: -03/02, mostly with swallowing, [...] evidence of withdrawl Continue follow up with VACUUM DRIER OPERATOR and Nutrition Services Thank you for allowing me to participate in the management and care of your patient. If I may answer any questions in the interim, please do not hesitate to contact me at any time. Santiago Sellers DO Department of Radiation Oncology [facility] 03/18/19 6568 <Electronically signed by Santiago Sellers DO> Date Santiago Hess Signature: Date (if applicable) CC: Kya Gonzalez Start: 03-16-2019 End: 03-16-2019 Oncology Visit Report Comments: See Note; NOTES: [facility] [place] [address] [place] [address] OFFICE VISIT Date of Service: 03/16/199[address] MR#: [id number] Acct: [id number] Name: MY JAMA Rep #: [id number] : 1960 From: Quincy Simpson MD Age/Sex: [...] FINDINGS: Supraclavicular: No acute process within the rxdaz-mt-piey. Body wall soft tissues: No acute process. [...] AE1-3 (AE1/AE3/PCK26) positive CK7 (OV-TL12/30) negative CK8 (34fqivU26) positive, weak CK20 (KS20.8) negative TTF-1 (8G7G3/1) [...] the combined modality phase Quincy Simpson MD Divisional Merchandising Manager, [facility] Divisions of Medical Oncology AND Hematology Department of Internal Medicine [place] [phone] This note was generated using a voice [...] signed by Quincy Simpson MD> Date Quincy Glasgow Signature: Date (if applicable) CC: Kya Gonzalez Start: 03-11-2019 End: 03-11-2019 Radiation Oncology Visit Comments: See Note; NOTES: [facility] [address] [place] [address] OFFICE VISIT Date of Service: 03/11/19 1020 MR#: [id number] Acct: [id number] Name: MY JAMA Rep #: [id number] : 1960 From: Donaldo Gibbs MD Age/Sex: 58/M Location: [facility] Status: Signed with Addenda ADDENDUM by Donaldo [...] evidence of withdrawl Continue follow up with VACUUM DRIER OPERATOR and Nutrition Services Thank you for allowing me to participate in the management and care of your patient. If I may answer any questions in the interim, please do not hesitate to contact me at any time. Donaldo Gibbs MD Department of Radiation Oncology [facility] 03/11/19 7406 <Electronically signed by Donaldo Gibbs MD> Date Donaldo Gibbs MD Cosigner Signature: Date (if applicable) CC: Kya Gonzalez Start: 03-09-2019 End: 03-09-2019 Oncology Visit Report Comments: See Note; NOTES: [facility] [place] [address] OFFICE VISIT Date of Service: 03/09/19 1014 MR#: [id number] Acct: [id number] Name: MY JAMA Rep #: [id number] : 1960 From: Marce BUNN Age/Sex: 58/M [...] FINDINGS: Supraclavicular: No acute process within the pbxrk-yy-nwfa. Body wall soft tissues: No acute process. [...] AE1-3 (AE1/AE3/PCK26) positive CK7 (OV-TL12/30) negative CK8 (31muatC17) positive, weak CK20 (KS20.8) negative TTF-1 (8G7G3/1) [...] this cycle, now improving. Rates throat pain 8/10, MMW not helpful. Using baking soda/salt water, [...] 03/08/19. Cough productive, describes sputum as clear, "sticky". Overall unchanged. Nausea mild, did not result [...] 3 Cisplatin, sooner if issues arise. Marce Maxwell, ADMINISTRATIVE PROFESSIONAL-DIRECTOR [employer], AOCNP Medications: Prescriptions This Visit Medication Instructions Recorded Lidocaine/Prilocaine 1 applicatio TP DAILY PRN PRN 30 01/05/19 [Lidocaine-Prilocaine Cream] Days #1 tube Primary Care Provider: Kya Gonzalez NP Referring Provider: - Problem List (1) Regional lymph node metastasis present Status: Acute (2) Head and neck cancer Status: Acute (3) Dehydration Status: Acute (4) Cancer related pain Status: Acute 03/09/19 1101 <Electronically signed by Marce BUNN> Date Marce BUNN Cosigner Signature: Date (if applicable) CC: Kya Gonzalez Start: 03-04-2019 End: 03-04-2019 Radiation Oncology Visit Comments: See Note; NOTES: [facility] [address] [place] [address] OFFICE VISIT Date of Service: 03/04/19 1453 MR#: [id number] Acct: [id number] Name: MY JAMA Rep #: [id number] : 1960 From: Santiago Sellers DO Age/Sex: 58/M Location: [facility] Status: Signed Date of Service: 03/04/19 Diagnosis: My Jama is a 58-year-old male [...] No rash or desquamation Fatigue: mild Pain: 5-03/02, mostly with swallowing, using MMW but not [...] evidence of withdrawl Continue follow up with VACUUM DRIER OPERATOR and Nutrition Services Thank you for allowing me to participate in the management and care of your patient. If I may answer any questions in the interim, please do not hesitate to contact me at any time. Santiago Sellers DO, MS Divisional Merchandising Manager, Department of Radiation Oncology [facility] 03/04/19 6726 <Electronically signed by Santiago Sellers DO> Date Santiago Royanette Signature: Date (if applicable) CC: Kya Gonzalez Start: 03-02-2019 End: 03-02-2019 Oncology Visit Report Comments: See Note; NOTES: [facility] [address] [facility] [place] [address] OFFICE VISIT Date of Service: 03/02/19919 MR#: [id number] Acct: [id number] Name: MY JAMA Rep #: [id number] : 1960 From: Quincy Simpson MD Age/Sex: 58/M Location: [facility] Status: Signed - Problem List (1) Head [...] FINDINGS: Supraclavicular: No acute process within the cghxw-oh-hlux. Body wall soft tissues: No acute process. [...] AE1-3 (AE1/AE3/PCK26) positive CK7 (OV-TL12/30) negative CK8 (03bglqR24) positive, weak CK20 (KS20.8) negative TTF-1 (8G7G3/1) [...] the combined modality phase Quincy Simpson MD Divisional Merchandising Manager, [facility] Divisions of Medical Oncology AND Hematology Department of Internal Medicine [place] [phone] This note was generated using a voice [...] Radiation Oncology Visit Comments: See Note; NOTES: [facility] [address] [address] OFFICE VISIT Date of Service: 02/25/19 1033 MR#: [id number] Acct: [id number] Name: MY JAMA Rep #: [id number] : 1960 From: Santiago Sellers DO Age/Sex: 58/M Location: [facility] Status: Signed Date of Service: 02/25/19 Diagnosis: [...] evidence of withdrawl Continue follow up with VACUUM DRIER OPERATOR and Nutrition Services Thank you for allowing me to participate in the management and care of your patient. If I may answer any questions in the interim, please do not hesitate to contact me at any time. Santiago Sellers DO, MS Divisional Merchandising Manager, Department of Radiation Oncology [facility] 02/25/19 1042 <Electronically signed by Santiago Sellers DO> Date Santiago Sellers DO Cosign Signature: Date (if applicable) CC: Kya Gonzalez Start: 02-23-2019 End: 02-23-2019 Oncology Visit Report Comments: See Note; NOTES: [facility] [address] [place] [address]. [place], [place] [address] OFFICE VISIT Date of Service: 02/23/19 1008 MR#: [id number] Acct: [id number] Name: MY JAMA Rep #: [id number] : 1960 From: Marce BUNN Age/Sex: 58/M [...] FINDINGS: Supraclavicular: No acute process within the ennvg-bc-rsot. Body wall soft tissues: No acute process. [...] AE1-3 (AE1/AE3/PCK26) positive CK7 (OV-TL12/30) negative CK8 (90crhjG26) positive, weak CK20 (KS20.8) negative TTF-1 (8G7G3/1) [...] Cisplatin, sooner if issues arise. Marce Maxwell, ADMINISTRATIVE PROFESSIONAL-DIRECTOR [employer], AOCNP Medications: Prescriptions This Visit Medication Instructions Recorded Primary Care Provider: Kya Gonzalez NP Referring Provider: - Problem List (1) Regional lymph node metastasis present Status: Acute (2) Head and neck cancer Status: Acute 02/23/19 1101 <Electronically signed by Marce HOODC> Date Marce BUNN Cosigner Signature: Date (if applicable) CC: Kya Gonzalez Start: 02-19-2019 End: 02-19-2019 SP Initial Evaluation Comments: See Note; NOTES: [facility] Speech Pathology [facility] [address] [place] [address]. [address] [place] [address] / REHABILITATION SERVICES INITIAL EVALUATION MR#: [id number] Acct: [id number] Name: MY JAMA Rep #: [id number] : 1960 58 From: Diomedes Bentley M.A., CFY-VACUUM DRIER OPERATOR Referring DrBianca: Santiago Sellers, Status: REG R Insurance: [facility] [address] Eval Date: SELF PAY INSURANCE REASON FOR REFERRAL: The Patient is a 58 year old male referred for a clinical assessment of the swallow function at [facility] on 02/13/2019 secondary to recently diagnosed clinical [...] for Xerostomia: Acute Reactions: Grade 0 (no tar heat exchanger cleaner baseline) [facility] Xerostomia Questionnaire: Sialorrhea Scoring Scale (SSS): 1/9 (dry, never drools) MD Feng Dysphagia Inventory (MDADI): Global: 4/5 Physical: 34/40 Emotional: 25/30 Functional: Composite score: 82 Mean Point Score: 4.31 [...] normal activity; minor impact) Ndiaye Index of [place] in Activities of Daily Livin/6 (independent) Bathin Dressin Toiletin Transferrin Continence: 1 Feedin Amadeo Rolando Instrumental Activities of Daily Living Scale (IADL): [...] as needed post MBS Diomedes Bentley M.A., CCC-VACUUM DRIER OPERATOR MBSImP Certified, LSVT Certified [facility] Speech-Language Pathology Department [email or web address] <Electronically signed by Diomedes Bentley M.A., CFY-VACUUM DRIER OPERATOR> 02/19/19 6892 CC: [facility] Signed For Medicare only, by signing this I certify the plan of care. Physicians Signature Date Kya Gonzalez Start: 02-18-2019 End: 02-18-2019 Radiation Oncology Visit Comments: See Note; NOTES: [facility] [address] [place] [address] OFFICE VISIT Date of Service: 02/18/19 1104 MR#: [id number] Acct: [id number] Name: MY JAMA Rep #: [id number] : 1960 From: Santiago Sellers DO Age/Sex: 58/M Location: [facility] Status: Signed Date of Service: 02/18/19 Diagnosis: [...] evidence of withdrawl Continue follow up with VACUUM DRIER OPERATOR and Nutrition Services Thank you for allowing me to participate in the management and care of your patient. If I may answer any questions in the interim, please do not hesitate to contact me at any time. Santiago Sellers DO, MS Divisional Merchandising Manager, Department of Radiation Oncology [facility] 02/18/19 1106 <Electronically signed by Santiago Sellers DO> Date Santiago Sellers DO Manley Signature: Date (if applicable) CC: Kya Gonzalez Start: 02-17-2019 End: 02-17-2019 Oncology Visit Report Comments: See Note; NOTES: [facility] [address] [place] [address] OFFICE VISIT Date of Service: 02/17/19 1212 MR#: [id number] Acct: [id number] Name: MY JAMA Rep #: [id number] : 1960 From: Quincy Simpson MD Age/Sex: [...] FINDINGS: Supraclavicular: No acute process within the pfzww-on-iuzi. Body wall soft tissues: No acute process. [...] AE1-3 (AE1/AE3/PCK26) positive CK7 (OV-TL12/30) negative CK8 (10xhsxZ46) positive, weak CK20 (KS20.8) negative TTF-1 (8G7G3/1) [...] the combined modality phase Quincy Simpson MD Divisional Merchandising Manager, [facility] Divisions of Medical Oncology AND Hematology Department of Internal Medicine [place] [facility] [place] [address] This note was generated using a voice [...] Radiation Oncology Visit Comments: See Note; NOTES: [facility] [address] [address] OFFICE VISIT Date of Service: 02/11/19 0938 MR#: [id number] Acct: [id number] Name: MY JAMA Rep #: [id number] : 1960 From: Santiago Sellers DO Age/Sex: [...] evidence of withdrawl Continue follow up with VACUUM DRIER OPERATOR and Nutrition Services Thank you for allowing me to participate in the management and care of your patient. If I may answer any questions in the interim, please do not hesitate to contact me at any time. Santiago Sellers DO, MS Divisional Merchandising Manager, Department of Radiation Oncology [facility] 02/11/19 1110 <Electronically signed by Santiago Sellers DO> Date Santiago Sellers DO Cosigner Signature: Date (if applicable) CC: Kya Gonzalez Start: 02-10-2019 End: 02-10-2019 Oncology Visit Report Comments: See Note; NOTES: [facility] [address] [place] [address] OFFICE VISIT Date of Service: 02/10/19 0957 MR#: [id number] Acct: [id number] Name: MY JAMA Rep #: [id number] : 1960 From: Quincy Simpson MD Age/Sex: [...] FINDINGS: Supraclavicular: No acute process within the xbqjc-se-melb. Body wall soft tissues: No acute process. [...] AE1-3 (AE1/AE3/PCK26) positive CK7 (OV-TL12/30) negative CK8 (59nussO16) positive, weak CK20 (KS20.8) negative TTF-1 (8G7G3/1) [...] the combined modality phase Quincy Simpson MD Divisional Merchandising Manager, [facility] Divisions of Medical Oncology AND Hematology Department of Internal Medicine [place] [facility] [place] [address] This note was generated using a voice [...] Oncology Follow-Up Visit Comments: See Note; NOTES: [facility] Medical Records Department [address] [facility] [address] Oncology Follow-Up Visit 02/05/19 1145 MR#: [id number] Acct: [id number] Name: MY JAMA Rep #: [id number] : 1960 58 From: Santiago Sellers DO PCP: Kya Gonzalez NP Status: REG RCR Y Location: [facility] Date of Service: 02/05/19 Last Clinic Visit: [...] in the interim. Santiago Sellers DO, MS Divisional Merchandising Manager, Department of Radiation Oncology [facility] 02/05/19 1319 <Electronically signed by Santiago Sellers DO> Date Santiago Sellers DO CC: Rachel Brooks MD; Quincy Simpson MD Signed Kya Gonzalez Start: 02-04-2019 End: 02-04-2019 Surgery Visit Report Comments: See Note; NOTES: [facility] [address] [place] [address] OFFICE VISIT Date of Service: 02/03/19 MR#: [id number] Acct: [id number] Name: MY JAMA Rep #: [id number] : 1960 Provider: Nimo Ledesma PA-C Age/Sex: 58/M Location: [facility] Status: Signed Intake Intake Visit Reasons: Port Placement AND Feeding Tube 01/26 Chief Complaint: Neck mass Tunnel Heading Inspector Required: No Is patient in pain?: No [...] PA-C Cosigner Signature: Date (if applicable) CC: MACHINE ROOM ENGINEER Kya Gonzalez Start: 02-03-2019 End: 02-03-2019 Operative Report Comments: See Note; NOTES: [facility] Medical Records Department [address] [place] [address] Operative Report 01/26/19 1045 MR#: [id number] Acct: [id number] Name: MY JAMA Rep #: [id number] : 1960 58 From: Shane Gibson MD PCP: Kya Gonzalez NP Status: [facility] Y Location: [facility] Problem List (1) Encounter for adjustment or [...] Gibson MD> Date Shane Gibson MD CC: AJAY Gonzalez; Shane Gibson MD Signed Kya Gonzalez Start: 01-26-2019 End: 01-26-2019 Operative Report - Endoscopy Comments: See Note; NOTES : [facility] Medical Records Department [address] [place] [address] Operative Report - Endoscopy MR#: [id number] Acct: [id number] Name: MY JAMA Rep #: [id number] : 1960 58 From: Shane Gibson MD PCP: Kya Gonzalez NP Status: REG [facility] 01/26/2019 Kya Gonzalez NP [address] [place] [address] Re : Upper GI endoscopy procedure for My Jama Dear Ms. Gonzalez This procedure was performed on Saturday, January [...] me at Doctor phone number(s): , Fax: [phone], Work: . Sincerely, MD Shane Kuhn MD 01/26/2019 12:55:22 PM This report has been signed electronically. 01/26/19 1255 Date Shane Gibson MD [facility] Signature: Date (if indicated) CC: MACHINE ROOM ENGINEER Kya Gonzalez; Shane Gibson MD; OUT OF TOWN DOCTOR Date Dictated: 01/26/19 1200 Date Transcribed: Leasing Professional: DP Signed Kya Gonzalez Start: 01-26-2019 End: 01-26-2019 Discharge Instruction Comments: See Note; NOTES: [facility] Medical Records Department [address] [facility] [place] [address] Instructions for Home/Discharge Instructions 01/26/19 1158 MR#: [id number] Acct: [id number] Name: MY JAMA Rep #: [id number] : 1960 58 From: Shane Gibson MD PCP: Kya Gonzalez NP Status: REG [facility] Discharge Diet: No Restrictions - Pain medication [...] PRN Reason: Pain Primary Care Physician: Kya Gonzalez, MACHINE ROOM ENGINEER-C [Primary Care Provider] - Test Results: Test results from this visit will be discussed in further detail at your follow-up appointment, if applicable. Please Follow Up With: Shane Gibson MD - [phone] When: Please plan to follow up in 7 days in the office. 01/26/19 1159 <Electronically signed by Shane Gibson MD> Date Shane Gibson MD CC: AJAY Gonzalez Signed Kya Gonzalez Start: 01-26-2019 End: 01-26-2019 CXR for Line Placement Comments: See Note; NOTES: [facility] Imaging Services [address] [place] [address] CXR for Line Placement MR#: [id number] Acct: [id number] Name: MY JAMA Rep #: [id number] : 1960 M 58 From: Coy White DO PCP: Kya Gonzalez NP Status: REG [facility] Study: CXR for Line Placement Date of Exam: 01/26/19 Exam# [id number] Ordering Dr: Shane Gibson MD STUDY: X-RAY [...] , CC: AJAY Gonzalez; Shane Gibson MD Leasing Professional: Signed Kya Gonzalez Start: 01-26-2019 End: 01-26-2019 History and Physical Exam Comments: See Note; NOTES: [facility] Medical Records Department [address] [place] [address] History and Physical 01/26/19 1044 MR#: [id number] Acct: [id number] Name: MY JAMA Rep #: [id number] : 1960 58 From: Shane Gibson MD PCP: Kya Gonzalez MACHINE ROOM ENGINEER Status: REG SDC Y Location: [place] [address] History and Physical Date of Admission: 01/26/19 [facility] [address] [place] [address] OFFICE VISIT Date of Service: 01/02/19 MR#: [id number] Acct: [id number] Name: MY JAMA Rep #: [id number] : 1960 Provider: Shane Gibson MD Age/Sex: 58/M Location: [facility] Status: Signed Intake Vital Signs 01/02/19 Body Mass Index (BMI) 22.1 01/02/19 Height 5 ft 6.5 in 01/02/19 Weight: 140 lb 01/02/19 Body Mass Index (BMI) 22.2 Intake Visit Reasons: PORT PLACEMENT AND PEG TUBE Chief Complaint: Neck mass Tunnel Heading Inspector Required: No Is patient in pain?: No Allergies No Known Allergies Allergy (Verified 01/02/19 10:15) Medications NK 12/19/18 [History Confirmed 01/02/19] [facility] Medical History Acid reflux (Acute) Difficulty swallowing [...] person, oriented to place, oriented to time [facility] Head: normocephalic, atraumatic Ears: external ears normal [...] signed by Shane Gibson MD> Date Shane [place] Signature: Date (if applicable) CC: MACHINE ROOM ENGINEER Kya Gonzalez; Shane Gibson MD Signed Kya Gonzalez Start: 01-21-2019 Basic metabolic 1998 panel - Serum or Plasma Rachel Brooks Start: 01-21-2019 CBC W Auto Differential panel - Blood Rachel Brooks Start: 01-21-2019 Coagulation Screen Rachel Brooks Start: 01-08-2019 End: 01-08-2019 Consultation Comments: See Note; NOTES: [facility] Medical Records Department [address] [place] [address] Consultation 01/08/19 1328 MR#: [id number] Acct: [id number] Name: YM JAMA Rep #: [id number] : 1960 58 From: Santiago Sellers DO PCP: Kya Gonzalez NP Status: REG RCR Y Location: [facility] Date of Service: 01/08/19 Referring Provider: Quincy [facility] vacation is [facility] and so like is staring screens so he is trying brain to check 4months vacation a week at [facility] on spring so expensive man is disease [...] (Last Reviewed 01/08/19 @ 12:27 by Georgina Reardon, KT) history of biopsy neck (Acute) Social History [...] me at any time. Santiago Sellers DO, Divisional Merchandising Manager, Department of Radiation Oncology [facility] Code Visit Office Visits / Consults: [id number] OV L4 New 01/08/19 2725 <Electronically signed by Santiago Sellers DO> Date Santiago Doe Signature (if applicable): Date CC: AJAY Gonzalez; Jim Burgos MD; Shane Gibson MD; Quincy Simpson MD Signed Kya Gonzalez Start: 01-08-2019 End: 01-08-2019 Oncology Visit Report Comments: See Note; NOTES: [facility] Medical Oncology [address] [place] [address] OFFICE VISIT Date of Service: 01/08/19 1132 MR#: [id number] Acct: [id number] Name: MY JAMA Rep #: [id number] : 1960 From: Quincy Simpson MD Age/Sex: [...] FINDINGS: Supraclavicular: No acute process within the xjvbc-nf-izvh. Body wall soft tissues: No acute process. [...] AE1-3 (AE1/AE3/PCK26) positive CK7 (OV-TL12/30) negative CK8 (37vrwcP87) positive, weak CK20 (KS20.8) negative TTF-1 (8G7G3/1) [...] visible anatomic abnormality, will defer to Dr. Alvarez/ Verito whether repeat endoscopy with focus on [...] Provider: Kya Gonzalez NP Referring Provider: 01/08/19 1218 <Electronically signed by Quincy Simpson MD> Date Quincy Simpson MD Cosigner Signature: Date (if applicable) CC: Kya Gonzalez Start: 01-05-2019 End: 01-05-2019 Oncology Visit Report Comments: See Note; NOTES: [facility] Medical Oncology [address] [facility] [place] [address] OFFICE VISIT Date of Service: 01/05/196 MR#: [id number] Acct: [id number] Name: MY JAMA Rep #: [id number] : 1960 From: Marce BUNN Age/Sex: 58/M [...] FINDINGS: Supraclavicular: No acute process within the awpus-cr-wdgr. Body wall soft tissues: No acute process. [...] AE1-3 (AE1/AE3/PCK26) positive CK7 (OV-TL12/30) negative CK8 (45auaqA59) positive, weak CK20 (KS20.8) negative TTF-1 (8G7G3/1) [...] week. Per patient, was told on examination "nothing is there" referring to an area for biopsy. Met [...] will commence with cycle 1[facility]. E[facility] evaluation with henry endoscopy- On Saturday01/02/19. No biopsies were obtained. Per patient "didn't find anything". 2. PET CT for initial staging- Scheduled [...] Dr. Simpson as previously planned. Marce Maxwell, ADMINISTRATIVE PROFESSIONAL-DIRECTOR [employer], AOCNP Primary Care Provider: Kya Gonzalez NP Referring Provider: - Problem List (1) Carcinoma of unknown primary Status: Acute (2) Regional lymph node metastasis present Status: Acute (3) Encounter for education Status: Acute 01/05/19 1315 <Electronically signed by Marce Maxwell NP-C> Date Marce Alissa MACHINE ROOM ENGINEER-C Peeer Signature: Date (if applicable) CC: Kya Gonzalez Start: 01-05-2019 PET/CT Tumor Base -Thigh Init MACHINE ROOM ENGINEER-C Kya Gonzalez MACHINE ROOM ENGINEER Work Phone: Start: 01-04-2019 End: 01-04-2019 Surgery Visit Report Comments: See Note; NOTES: [facility] [address] [place], [place] [address]. [address] [place] [address] OFFICE VISIT Date of Service: 01/02/19 MR#: [id number] Acct: [id number] Name: MY JAMA Yamilet Rep #: [id number] : 1960 Provider: Shane Gibson MD Age/Sex: 58/M Location: [facility] Status: Signed Intake Vital Signs01/02/19 Body Mass Index (BMI) 22.1 01/02/19 Height 5 ft 6.5 in 01/02/19 Weight: 140 lb 01/02/19 Body Mass Index (BMI) 22.2 Intake Visit Reasons: PORT PLACEMENT AND PEG TUBE Chief Complaint: Neck mass Tunnel Heading Inspector Required: No Is patient in pain?: No Allergies No Known Allergies Allergy (Verified 01/02/19 10:15) Medications NK 12/19/18 [History Confirmed 01/02/19] [facility] Medical History Acid reflux (Acute) Difficulty swallowing [...] person, oriented to place, oriented to time [facility] Head: normocephalic, atraumatic Ears: external ears normal [...] -Thigh Init Comments: See Note; NOTE S: [facility] Imaging Services [address] [place] [address] PET/CT Tumor Base -Thigh Init MR#: [id number] Acct: [id number] Name: MY JAMA Rep #: [id number] : 1960 M 58 From: Narendra Weathers DO PCP: Kya Gonzalez, MACHINE ROOM ENGINEER Status: REG RCR Study: PET/CT Tumor Base -Thigh Init Date of Exam: 01/05/19 Exam# [id number] Ordering Dr: Quincy Simpson MD EXAMINATION: FDG [...] , CC: AJAY Gonzalez; Quincy Simpson MD Leasing Professional: Signed Kya Gonzalez Start: 12-31-2018 End: 12-31-2018 Oncology History and Physical Comments: See Note; NOTE S: [facility] Medical Records Department [address] [place] [address] History and Physical 12/31/18 0914 MR#: [id number] Acct: [id number] Name: MY JAMA Rep #: [id number] : 1960 58 From: Quincy Simpson MD [...] FINDINGS: Supraclavicular: No acute process within the obicn-cf-haax. Body wall soft tissues: No acute process. [...] AE1-3 (AE1/AE3/PCK26) positive CK7 (OV-TL12/30) negative CK8 (63xmqdP85) positive, weak CK20 (KS20.8) negative TTF-1 (8G7G3/1) negative Napsin A (Rabbit Polyclonal) negative HepPar (OCh1E5) negative RCC (PN-15) negative PSAP (PASE/4LJ) negative CK5-6 (D5 AND 1684) positive P16 (E6H4) negative P40 (BC28) positive, focal Power of Service Bar Cashier: No Living Will: Yes Health History: Past [...] drinking: Has the patient needed an eye medical instrument cable fabricator in the mornings: Comments: Review of Systems [...] placement. 5. Formal chemo teaching appointment with MACHINE ROOM ENGINEER to schedule. 6. Appointment with PCP to [...] Signature: Date (if applicable) CC: Kya Gonzalez NP; Kya gonzalez; Jim Burgos MD; Shane Gibson MD; Quincy Simpson MD; Santiago Sellers DO Signed Kya Gonzalez Start: 12-25-2018 End: 12-25-2018 Surgery Visit Report Comments: See Note; NOTES: [facility] [address] [place] [address] OFFICE VISIT Date of Service: 12/19/18 MR#: [id number] Acct: [id number] Name: MY JAMA Rep #: [id number] : 1960 Provider: Shane Gibson MD Age/Sex: 58/M Location: [facility] Status: Signed Intake Vital Signs12/19/18 Height 5 ft 6 in 12/19/18 Weight: 144 lb Intake Visit Reasons: NECK MASS/XRAY @ [facility] Tunnel Heading Inspector Required: No Is patient in pain?: No Allergies No Known Allergies Allergy (Verified 12/22/18 09:19) Medications NK 12/19/18 [History Confirmed 12/19/18] [facility] Medical History Acid reflux (Acute) Difficulty swallowing [...] person, oriented to place, oriented to time [facility] Head: normocephalic, atraumatic Ears: external ears normal [...] Chest WITH Contrast Comments: See Note; NOTES: [facility] Imaging Services [address] [place] [address] Chest WITH Contrast MR#: [id number] Acct: [id number] Name: MY JAMA Rep #: [id number] : 1960 M 58 From: Narendra Romero MD PCP: Kya Gonzalez NP Status: REG CLI Study: Chest WITH Contrast Date of Exam: 12/17/18 Exam# [id number] Ordering Dr: Kya Gonzalez MACHINE ROOM ENGINEER-C STUDY: CT CHEST WITH CONTRAST REASON FOR [...] FINDINGS: Supraclavicular: No acute process within the bqcsv-ix-vnqz. Body wall soft tissues: No acute process. [...] Service support , CC: Kya Gonzalez NP Leasing Professional: Signed Kya Gonzalez Work Phone: Start: 12-17-2018 End: 12-18-2018 Soft Tissue Neck WITH Contrast Comments: See Note; NOTES: [facility] Imaging Services [address] [place] [address] Soft Tissue Neck WITH Contrast MR#: [id number] Acct: [id number] Name: MY JAMA Rep #: [id number] : 1960 M 58 From: Narendra Romero MD PCP: Kya Gonzalez NP Status: REG CLI Study: Soft Tissue Neck WITH Contrast Date of Exam: 12/17/18 Exam# [id number] Ordering Dr: Kya Gonzalez MACHINE ROOM ENGINEER-C STUDY: CT SOFT TISSUE NECK WITH CONTRAST [...] Tel , Service support , CC: Kya Katharinachioma MOSS Leasing Professional: Signed Kya Gonzalez Work Phone: Start: 12-15-2018 End: 12-15-2018 No Known Past Surgical History Xavier Myers Anaerobic microbial culture MACHINE ROOM ENGINEER-C Kya Gonzalez MACHINE ROOM ENGINEER Work Phone: [phone] Anaerobic microbial culture MACHINE ROOM ENGINEER-C Kya Gonzalez MACHINE ROOM ENGINEER Work Phone: [phone] Anaerobic microbial culture MACHINE ROOM ENGINEER-C Kya Gonzalez MACHINE ROOM ENGINEER Work Phone: [phone] Anaerobic microbial culture MACHINE ROOM ENGINEER-C Kya Gonzalez MACHINE ROOM ENGINEER Work Phone: [phone] Anaerobic microbial culture MACHINE ROOM ENGINEER-C Kya Gonzalez MACHINE ROOM ENGINEER Work Phone: [phone] Anaerobic microbial culture MACHINE ROOM ENGINEER-C Kya Gonzalez MACHINE ROOM ENGINEER Work Phone: [phone] Bacteria identified in Blood by Culture MACHINE ROOM ENGINEER-C Kya Gonzalez MACHINE ROOM ENGINEER Work Phone: [phone] Bacteria identified in Blood by Culture MACHINE ROOM ENGINEER-C Kya Gonzalez MACHINE ROOM ENGINEER Work Phone: [phone] H/O: tracheostomy Status post tracheostom y Kya Gonzalez Work Phone: [phone] Investigation of tra nsfusion reaction MACHINE ROOM ENGINEER-C Kya Gonzalez MACHINE ROOM ENGINEER Work Phone: [phone] Investigation of tra nsfusion reaction MACHINE ROOM ENGINEER-C Kya Gonzalez MACHINE ROOM ENGINEER Work Phone: [phone] Investigation of tra nsfusion reaction MACHINE ROOM ENGINEER-C Kya Ciesa MACHINE ROOM ENGINEER Work Phone: [phone] Investigation of tra nsfusion reaction MACHINE ROOM ENGINEER-C Kya Ciesa MACHINE ROOM ENGINEER Work Phone: [phone] Investigation of tra nsfusion reaction MACHINE ROOM ENGINEER-C Kya Ciesa MACHINE ROOM ENGINEER Work Phone: [phone] Investigation of tra nsfusion reaction MACHINE ROOM ENGINEER-C Kya Ciesa MACHINE ROOM ENGINEER Work Phone: [phone] Microbial culture, routine N P-C Kya Ciesa MACHINE ROOM ENGINEER Work Phone: [phone] Microbial culture, routine N P-C Kya Ciesa MACHINE ROOM ENGINEER Work Phone: [phone] Microbial culture, routine N P-C Kya Ciesa MACHINE ROOM ENGINEER Work Phone: [phone] Microbial culture, routine N P-C Kya Ciesa MACHINE ROOM ENGINEER Work Phone: [phone] Microbial culture, routine N P-C Kya Ciesa MACHINE ROOM ENGINEER Work Phone: [phone] Microbial culture, routine N P-C Kya Ciesa MACHINE ROOM ENGINEER Work Phone: [phone] NEGATED: Highlighted row has not occurred! Denies No history of surgery Kya Posadas a Work Phone: [phone] Plan of Treatment Date Care Activity Detail Author Start: 05-24-2025 Influenza vaccination Influenz a Vaccine (Season Ended) [facility] Start: 03-01-2025 End: 03-01-2025 Patient encounter procedure 03/01/2025 8:30 AM EDT Office Visit [address] [address] [place] [address] [place] [address] [facility] Start: 10-21-2024 Egd insert guide wir e dilator passage esophagus EGD GUIDE WIRE INSERTION [facility] Start: 10-21-2024 Patient discharge [facility] Start: 09-15-2024 CORE NDL BX LNG/MED PERQ CORE NDL BX LNG/MED PERQ [facility] Start: 09-15-2024 Following clinical pathway protocol [facility] Start: 09-15-2024 Catheterization of vein [facility] Start: 09-15-2024 Oxygen therapy [facility] Start: 09-15-2024 Patient discharge [facility] Start: 09-15-2024 Vital signs measurements [facility] Start: 05-24-2024 COVID-19 Vaccine ( season) COVID-19 Vaccine () [facility] Start: 05-24-2024 Influenza vaccination [facility] Start: 02-03-2024 End: 02-03-2024 Clinical Support 02/03/2024 11:30 AM EDT Clinical Support [address] [address] Jaelyn Patrick, AuD [address] [place], [place] [id number] Sensorineural hearing loss (SNHL) of both ears (Primary Dx) [facility] Comment on above: Sensorineural hearin g loss (SNHL) of both ears (Primary Dx) Start: 02-03-2024 End: 02-03-2024 Patient encounter procedure 02/03/2024 8:45 AM EDT Office Visit [address] [address] [place] [address] [facility] [place] [address] [facility] Start: 11-07-2023 DECLAN, Provider: Segundo Chamorro, Status: Pen, Time: 9:30 AM DECLAN Provider: Segundo Chamorro, Status: Pen, Time: 9:30 AM MK-Fmmjnucgpbjnyg-Drs on Work Phone: Start: 11-07-2023 End: 11-07-2023 Clinical Support 11/07/2023 9:30 AM EST Clinical Support [address] [address] Gilger, Jaelyn L, AuD [address] [place] [address] [facility] Start: 09-03-2023 Egd insert guide wir e dilator passage esophagus EGD GUIDE WIRE INSERTION [facility] Start: 09-03-2023 Egd transoral biopsy single/multiple EGD BIOPSY SINGLE/MULTIPLE [facility] Start: 09-03-2023 [facility] Start: 09-02-2023 End: 09-02-2024 Thyrotropin [Units/volume] in Serum or Plasma Thyroid Stimulating Hormone Lab Routine Acquired hypothyroidism Expected: 09/02/2023 (Approximate), Expires: 09/02/2024 [facility] Service Area Work Phone: Comment on above: Expected: 09/02/2023 (Approximate), Expires: 09/02/2024 Start: 09-02-2023 End: 09-02-2024 XR Chest 2 Views XR chest 2 views Imaging Routine 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) Expected: 09/02/2023 (Approximate), Expires: 09/02/2024 [facility] Work Phone: Comment on above: Expected: 09/02/2023 (Approximate), Expires: 09/02/2024 Start: 08-06-2023 Thyroid stimulating hormone measurement TSH Level [facility] Start: 08-05-2023 Patient referral [facility] Work Phone: Start: 07-22-2023 Procedure Education [facility] Work Phone: Start: 07-22-2023 Assay of free thyroxine [facility] Work Phone: Start: 07-22-2023 Assay of thyroid stimulating hormone tsh [facility]; [facility] Work Phone: Start: 05-24-2023 COVID-19 Vaccine ( season) COVID-19 Vaccine ( season) [facility] Start: 05-24-2023 Influenza vaccination Influenza Vacc ine (#1) [facility] Start: 04-18-2023 DECLAN, Provider: Segundo Chamorro, Status: Pen, Time: 3:45 PM DECLAN, Provider: Segundo Chamorro, Status: Pen, Time: 3:45 PM VI-Kujvunxduoxhin-Ezf on Work Phone: Start: 04-04-2023 HAFIT, Provider: Segundo Chamorro, Status: Pen, Time: 11:00 AM HAFIT, Provider: Segundo Chamorro, Status: Pen, Time: 11:00 AM CA-Nlfcnjrahymvwf-Ymk on Work Phone: Start: 03-14-2023 HASAQIB, Provider: Segundo Chamorro, Status: Pen, Time: 1:00 PM HAEVAL, Provider: Segundo Chamorro, Status: Pen, Time: 1:00 PM RI-Yubxolmtqztjkh-Crw on Work Phone: Start: 03-06-2023 DUALMASOOD, Provider: Gertrude Howard, Status: Pen, Time: 9:00 AM DUALAUDIO, Provider: Gertrude Howard, Status: Pen, Time: 9:00 AM MI-Helyqvkcidgdcy-[place] Work Phone: Start: 03-06-2023 EPV, Provider: True Kumar, Status: Pen, Time: 9:00 AM EPV, Provider: True Kumar, Status: Pen, Time: 9:00 AM WS-Karqxxqnlvdqlk-Ewm on [address] Work Phone: Start: 03-06-2023 SUSHILA, Provider: Segundo Chamorro, Status: Pen, Time: 8:30 AM DUALAUDIO, Provider: Segundo Chamorro, Status: Pen, Time: 8:30 AM XX-Fhkjcjuqtathmk-Lrn on [address] Work Phone: Start: 01-21-2023 Assay [...] (1 - Risk 60-74 years 1-dose series) [facility] Start: 2022 RSV patient s and/or patients aged 60+ years (1 - 1-dose 60+ series) RSV patients and/or patients aged 60+ years (1 - 1-dose 60+ series) [facility] Start: 06-18-2022 FUV, Provider: Rachel Brooks, Status: Pen, Time: 8:45 AM FUV, Provider: Rachel Brooks, Status: Pen, Time: 8:45 AM ZJ-Urbkqrqlyjfsfk-Qdr on Work Phone: Start: 05-14-2022 FUV, Provider: Rachel Brooks, Status: Pen, Time: 8:30 AM FUV, Provider: Rachel Brooks, Status: Deon, Time: 8:30 AM QI-Mkajomrxryttes-Rip on Work Phone: Start: 04-16-2022 FUV, Provider: Rachel Brooks, Status: Pen, Time: 9:45 AM FUV, Provider: Rachel Brooks, Status: Deon, Time: 9:45 AM VR-Uomptjbcceivgh-Chs dman Work Phone: Start: 04-02-2022 FUV, Provider: Rachel Brooks, Status: Pen, Time: 8:45 AM FUV, Provider: Rachel Brooks, Status: Pen, Time: 8:45 AM LF-Dnzquxeoqgherj-Epn on Work Phone: Start: 02-22-2022 Basic metabolic pane l calcium total Metabolic Panel, Basic (13104) [facility] Work Phone: Start: 02-16-2022 Basic metabolic pane l calcium total [facility]; [facility] Work Phone: Start: 02-15-2022 Basic metabolic pane l calcium total Metabolic Panel, Basic (72285) [facility]; [facility] Work Phone: Start: 02-15-2022 Procedure Education [facility]; [facility] Work Phone: Start: 02-12-2022 FUV, Provider: Rachel Brooks, Status: Pen, Time: 11:15 AM FUV, Provider: Rachel Brooks, Status: Pen, Time: 11:15 AM HW-Hypummtauaggia-Lbi on Work Phone: Start: 01-31-2022 Patient referral [facility] Work Phone: Start: 01-25-2022 Patient discharge [facility] Work Phone: Start: 01-25-2022 Chemotherapy care management [facility] Work Phone: Start: 01-24-2022 [facility] Work Phone: Start: 01-24-2022 Care planning and problem solving actions [facility] Work Phone: Start: 01-24-2022 Speech therapy assessment [facility] Work Phone: Start: 01-24-2022 [facility] Work Phone: Start: 01-23-2022 Referral to bologna lacer [facility] Work Phone: Start: 01-22-2022 End: 01-23-2022 [facility] Work Phone: Start: 01-22-2022 Following clinical pathway protocol [facility] Work Phone: Start: 01-22-2022 Ambulation without limitation [facility] Work Phone: Start: 01-22-2022 Application of intermittent pneumatic compression device [facility] Work Phone: Start: 01-22-2022 Assessment of risk o f venous thromboembolism [facility] Work Phone: Start: 01-22-2022 Consultation for treatment [facility] Work Phone: Start: 01-22-2022 Fluid restriction [facility] Work Phone: Start: 01-22-2022 Inhalation therapy procedure [facility] Work Phone: Start: 01-22-2022 Insertion of cathete r into peripheral vein [facility] Work Phone: Start: 01-22-2022 Measuring intake and output [facility] Work Phone: Start: 01-22-2022 Providing care according to standard [facility] Work Phone: Start: 01-22-2022 Wound care [facility] Work Phone: Start: 01-22-2022 Admission procedure [facility] Work Phone: Start: 01-22-2022 Patient referral to dietitian [facility] Work Phone: Start: 01-15-2022 FUV, Provider: Rachel Brooks, Status: Pen, Time: 9:45 AM FUV, Provider: Rachel Brooks, Status: Pen, Time: 9:45 AM PJ-Kwgqllsjivxpqw-Bzi on Work Phone: Start: 01-15-2022 Patient encounter procedure [facility] [place] Start: 12-18-2021 FUV, Provider: Rachel Brooks, Status: Pen, Time: 3:45 PM FUV, Provider: Rachel Brooks, Status: Pen, Time: 3:45 PM EI-Bbvyfpjjvfhnbg-Yzm dman Work Phone: Start: 12-15-2021 Procedure Education [facility]; [facility] Work Phone: Start: 12-15-2021 FUV, Provider: Willie Smith, Status: Deon, Time: 10:30 AM FUV, Provider: Willie Smith, Status: Deon, Time: 10:30 AM MD-Allziywpemqjel-Wwz in [place] [address] Work Phone: Start: 12-10-2021 Airway suction technique [facility] Work Phone: Start: 12-08-2021 Patient referral [facility] Work Phone: Start: 12-05-2021 End: 12-06-2022 Lidocaine 1% - EPINEPHrine 1:100,000 Injectable SubCutaneous Once ; DOSE = 2 mL SubCutaneous Once Start: 05-Dec-2021 End: 05-Dec-2022 Ordered: 05-Dec-2021 Branden, Avinash Intent [facility] Start: 12-04-2021 FUV, Provider: Rachel Brooks, Status: Pen, Time: 3:45 PM FUV, Provider: Rachel Brooks, Status: Pen, Time: 3:45 PM XN-Jqkdctwlgwppgy-Xlb dman Work Phone: Start: 11-29-2021 Patient encounter procedure [facility] Start: 11-29-2021 POV, Provider: Rachel Brooks, Status: Pen, Time: 1:15 PM POV, Provider: Rachel Brooks, Status: Pen, Time: 1:15 PM YX-Yoveygqdotbozn-[place]bb [place] Work Phone: Start: 11-13-2021 End: 11-14-2022 Magnesium Hydroxide Oral Liquid CONCENTRATE 10 mL Oral Every 24 Hours PRN ; (MILK OF MAGNESIA)DOSE = 10 mL PEG Tube Every 24 Hours Start: 13-Nov-2021 End: 13-Nov-2022 Ordered: 13-Nov-[address] [facility] Start: 11-11-2021 End: 11-12-2022 Albuterol 2.5 mg - Ipratropium 0.5 mg/ 3 mL Neb Soln 3 mL Inhalation Every 4 Hours ; (DUONEB)DOSE = 3 mL Inhalation Every 4 Hours via Nebulizer, PRN Shortness of Breath Start: 11-Nov-2021 End: 11-Nov-2022 Ordered: 11-Nov-[address] [facility] Start: 11-07-2021 [facility], Provider: Rachel Brooks, Status: Pen, Time: 8:00 AM [facility], Provider: Rachel Brooks, Status: Pen, Time: 8:00 AM EX-Yfxrkhrlrtvgnm-Oou dman Work Phone: Start: 11-07-2021 [facility], Provider: Willie Smith, Status: Pen, Time: 8:00 AM [facility], Provider: Willie Smith, Status: Pen, Time: 8:00 AM WL-Mwrerhcgiixtsg-Yoz dman Work Phone: Start: 11-01-2021 FUV, Provider: Willie Smith, Status: Pen, Time: 8:00 AM FUV, Provider: Willie Smith, Status: Pen, Time: 8:00 AM GF-Sssxkkfeyptpmq-Wxr in [place] [address] Work Phone: Start: 10-27-2021 FUV, Provider: Willie Smith, Status: Pen, Time: 9:15 AM FUV, Provider: Willie Smith, Status: Pen, Time: 9:15 AM NV-Xnipdzgtgcvrur-Tvi dman Work Phone: Start: 09-13-2021 Assay of [...] B 12) [Mass/Vol] VITAMIN B12 AND FOLATES (04844) [facility]; [facility] Work Phone: Start: 01-17-2021 Cyanocobalamin vitam in b-12 [facility]; [facility] Work Phone: Start: 01-17-2021 Assay of thyroid stimulating hormone tsh [facility]; [facility] Work Phone: Start: 01-17-2021 TSH Qn TSH (THYROID STIMULATING HORMONE) (98321) [facility]; [facility] Work Phone: Start: 12-02-2020 Procedure Education [facility]; [facility] Work Phone: Start: 12-02-2020 Provider Instruction s for Treatment [facility]; [facility] Work Phone: Start: 08-29-2020 TSH Qn TSH (THYROID STIMULATING HORMONE) (04617) [facility]; [facility] Work Phone: Comment on above: Oct 06 2020 Start: 08-29-2020 Procedure Education [facility]; [facility] Work Phone: Start: 08-29-2020 Provider Instruction s for Treatment [facility]; [facility] Work Phone: Start: 06-29-2020 TSH Qn TSH (THYROID STIMULATING HORMONE) (86296) [facility] Work Phone: Comment on above: Aug 10 Start: 06-29-2020 Procedure Education [facility] Work Phone: Start: 06-29-2020 Provider Instruction s for Treatment [facility] Work Phone: Start: 05-19-2020 TSH Qn TSH (THYROID STIMULATING HORMONE) (82535) [facility] Work Phone: Start: 04-14-2020 Free T4 [Mass/Vol] T4, FREE (T HYROXINE) (44482) [facility] Work Phone: Comment on above: to be done 6weeks ( end april ) Start: 04-14-2020 TSH Qn TSH (62291) [facility] Work Phone: Comment on above: to be done 6 weeks ( end april) Start: 04-14-2020 Free T3 [Mass/Vol] T3, FREE (TRIDOTHYRONINE) (08685) [facility] Work Phone: Comment on above: to be done 6weeks ( end april) Start: 04-14-2020 Microsomal antibodie s each Anti TPO Antibody (42501) [facility] Work Phone: Start: 04-14-2020 Procedure Education [facility] Work Phone: Start: 12-14-2019 Procedure Education [facility] Work Phone: Start: 06-18-2019 Flushing of Port-a-cath [facility] Start: 06-18-2019 Irrigation of vascul ar catheter [facility] Start: 05-27-2019 [facility] Start: 03-31-2019 [facility] Start: 03-18-2019 [facility] Start: 02-05-2019 [facility] Start: 02-04-2019 [facility] Start: 01-21-2019 [facility] Start: 01-09-2019 [facility] Start: 01-05-2019 [facility] Start: 01-02-2019 Procedure Education [facility] Work Phone: Start: 01-02-2019 Provider Instruction s for Treatment [facility] Work Phone: Start: 01-02-2019 Comprehensive metabo lic panel Metabolic Panel, Comprehensive (82751) [facility] Work Phone: Start: 01-02-2019 Cobalamin (Vitamin B 12) mass conc VITAMIN B12 AND FOLATES (72187) [facility] Work Phone: Start: 01-02-2019 Ammonia mass conc (P) AMMONIA (50676 ) [facility] Work Phone: Start: [...] f 2) Zoster Vaccines (1 of 2) [facility] Start: 1984 DTaP/Tdap/Td Vaccine s (1 - Tdap) DTaP/Tdap/Td Vaccines (1 - Tdap) [facility] Start: 1981 Pneumococcal vaccination Pneumococcal Vaccine (1 of 2 - PCV) [facility] Start: 1980 Hepatitis C screening Hepatitis C [facility] Start: 1968 Pneumococcal Vaccine : Pediatrics (0 to 5 Years) and At-Risk Patients (6 to 64 Years) (1 - PCV) Pneumococcal Vaccine: Pediatrics (0 to 5 Years) and At-Risk Patients (6 to 64 Years) (1 - PCV) [facility] Start: 1968 Pneumococcal Vaccine : Pediatrics (0 to 5 Years) and At-Risk Patients (6 to 64 Years) (1 of 2 - PCV) Pneumococcal Vaccine: Pediatrics (0 to 5 Years) and At-Risk Patients (6 to 64 Years) (1 of 2 - PCV) [facility] Start: 1963 MMR Vaccines (1 of 1 - Standard series) MMR Vaccines (1 of 1 - Standard series) [facility] Start: 1962 COVID-19 Vaccine (#1) COVID-19 Vacci ne (#1) [facility] Start: 1962 Annual wellness visit Welcome to Medicare Visit [facility] Start: 1962 HIV screening HIV Screening [facility] Start: 1962 Lipid panel Lipid Panel [facility] Start: 1962 Screening for malign ant neoplasm of colon [facility] Start: 1962 Yearly Adult Physical Yearly Adult P hysical [facility] CBC W Auto Different ial panel - Blood [facility] Work Phone: CT Chest W contrast IV [facility] Work Phone: [facility] Neck W contrast IV [facility] Work Phone: CT Neck W contrast IV [facility] Magnesium [Mass/volu me] in Serum or Plasma [facility] Work Phone: Patient Education [facility] Work Phone: Patient referral [facility] Work Phone: Patient referral to dietitian [facility] Work Phone: [facility] Work Phone: [facility] Work Phone: [facility] Work Phone: [facility] Work Phone: [facility] Work Phone: [facility] Work Phone: [facility] [place]: Highlighted row has been ruled out! Planned Goals not documented [place]-Hitpbpvveejfnh-Iuu in [place] [address] Work Phone: Payers Date Payer Category Payer Medicare (Managed Care) [employer] [id number] 2020 Managed Care (Private) [facility] [employer] [id number] 2020 Private Health Insurance [facility] [id number] 2020-Present Siva Braga [address] [place] [address] [id number]. [id number] 2019 Unknown 2019 Unknown [id number] 2018 Medicare [id number] 2018 Self-pay [id number] 2018 Private Health Insurance [id number] 1962 Unknown [id number] 2.840.1.816716.3.579. 2.716 1962 Unknown [id number] 2.840.1.218151.3.579. 2. 1962 Unknown [id number] 2.840.1.999420.3.579. 2. 1962 Unknown [id number] 2.16840.1.617722.3.579. 2.356 1962 Unknown [id number] 2.16840.1.646545.3.579. 2. 1962 Unknown [id number] 2.16.840.1.125083.3.579. 2.356 1962 Unknown [id number] 2.16840.1.078097.3.579. 2.356 1962 Unknown [id number] 2.16.840.1.141052.3.579. 2.356 1962 Unknown [id number] 2..840.1.680559.3.579. 2.356 1962 Unknown [id number] 2..840.1.316794.3.579. 2.1245 1962 Unknown [id number] 2..840.1.788521.3.579. 2.1244 1962 Unknown [id number] 2.840.1.480591.3.579. 2.1244 1962 Unknown [id number] 2.840.1.269412.3.579. 2.124 1962 Unknown [id number] 2.840.1.262782.3.579. 2.124 1962 Unknown [id number] 2.840.1.943701.3.579. 2.1244 Private Health Insurance [id number] Unknown [id number] Unknown [id number] 2.840.1.533824.3.579. 2.462 Unknown [id number] 2.840.1.060681.3.579. 2.462 Unknown [id number] 2.840.1.207030.3.579. 2.462 Unknown [id number] 2.840.1.303704.3.579. 2.462 Unknown [id number] 2.840.1.170230.3.579. 2.462 Unknown [id number] 2.840.1.780992.3.579. 2.462 Unknown [id number] 2.840.1.495471.3.579. 2.462 Unknown [id number] 2.840.1.759735.3.579. 2.462 Unknown [id number] 2.16.840.1.793611.3.579. 2.462 Unknown [id number] 2.16.840.1.911396.3.579. 2.462 Unknown [id number] 2.16.840.1.346229.3.579. 2.462 Unknown [id number] 2.16.840.1.857822.3.579. 2.462 Unknown [id number] 2.16.840.1.933831.3.579. 2.462 Unknown [id number] 2.16.840.1.509906.3.579. 2.462 Unknown [id number] 2.840.1.639918.3.579. 2.462 Unknown [id number] 2.840.1.770587.3.579. 2.462 Unknown [id number] 2.840.1.719852.3.579. 2.462 Unknown [id number] 2.840.1.545650.3.579. 2.462 Unknown [id number] 2.840.1.139949.3.579. 2.462 Unknown [id number] 2.840.1.113459.3.579. 2.462 Unknown [id number] 2.16840.1.863410.3.579. 2.462 Unknown [id number] 2.840.1.852431.3.579. 2.462 Unknown [id number] 2.16840.1.911615.3.579. 2.462 Unknown [id number] 2.16.840.1.264906.3.579. 2.462 Unknown [id number] 2.16.840.1.674524.3.579. 2.462 Unknown [id number] 2.16.840.1.078507.3.579. 2.462 Unknown [id number] 2.16840.1.225019.3.579. 2.462 Social History Date Type Detail Facility [...] 12-10-2021 End: 09-02-2023 Tobacco smoking consumption unknown [facility] Start: 11-28-2020 Cigarettes [facility] Start: 1960 Sex Assigned At Male [facility] Former smoker. [facility]; [facility] Work Phone: Start: 09-02-2023 End: 03-01-2025 Tobacco smoking status CAIS Never smoked tobacco [facility] Work Phone: Start: 09-02-2023 End: 03-01-2025 Tobacco use and exposure Smokeless tobacco non-user [facility] Work Phone: Start: 09-02-2023 End: 03-01-2025 Alcohol intake Lifetime non-drinker (finding) [facility] Work Phone: Start: 09-02-2023 End: 02-03-2024 Tobacco use panel [facility] Work Phone: Start: 1960 Sex Assigned At Not on file [facility] Work Phone: Start: 08-23-2023 End: 03-01-2025 Exposure to SARS-CoV-2 (event) Not sure [facility] Start: 10-20-2024 End: 07-09-2025 Tobacco smoking status NHIS Ex-smoker (finding) [facility] Start: 12-22-2024 End: 12-31-2024 Sex Male (finding) [facility] NEGATED: Highlighted row - MC-Bqdarmpxlljfyv-Ht min [place] [address] Work Phone: NEGATED: Highlighted rowStart: NINF History of tobacco use Passive smoker [facility] Work Phone: Medical Equipment Procedure Code Equipment [...] Pin, 2.7 X 80mm, 9mm Thread Case [id number] Start: 11-07-2021 Comment on above: Description: Convert ed from [facility]. Please see archived information for full log information. Peg Kit, Gastro, Standard, Push, 20 Fr, W/Xylocaine Ampule Case [id number]_[facility] Start: 11-07-2021 Comment on above: Description: Convert ed from [facility]. Please see archived information for full log information. Clamp, Cmf X-Fix , Connection Bar Cmf 3.2mm Pin Case [id number]_[facility] Start: 11-07-2021 Comment on above: Description: Convert ed from [facility]. Please see archived information for full log information. Device, Anasotmo tic 3.0mm Case [id number]_[facility] Start: 11-07-2021 Comment on above: Description: Convert ed from [facility]. Please see archived information for full log information. Probe, Flow Dopp ler Brenton Case [id number]_[facility] Start: 11-07-2021 Comment on above: Description: Convert ed from [facility]. Please see archived information for full log information. Probe, Flow Dopp ler Brenton Case [id number]_[facility] Start: 11-10-2021 Comment on above: Description: Convert ed from [facility]. Please see archived information for full log information. Screw, Lock 2.0 X 11 Maxdrv Ti Alloy Case [id number] Start: 11-07-2021 Comment on above: Description: Convert ed from [facility]. Please see archived information for full log information. Drill, Klsm 2.2 Case [id number] Start: 11-07-2021 Comment on above: Description: Convert ed from [facility]. Please see archived information for full log information. Plate Level One Cmf Case [id number] Start: 11-07-2021 Comment on above: Description: Convert ed from [facility]. Please see archived information for full log information. Additional Information:Plateper oracle jdr 11/08/2021 External Fixator Klever Case [id number] Start: 11-07-2021 Comment on above: Description: Convert ed from [facility]. Please see archived information for full log information. Additional Information:External Fixator Rodper range oracle jdr 11/08/2021 Screw, Lock 2.0 X 17 Maxdrv Ti Alloy Case [id number] Start: 11-07-2021 Comment on above: Description: Convert ed from [facility]. Please see archived information for full log information. Screw, Lock 2.0 X 13 Maxdrv Ti Alloy Case [id number] Start: 11-07-2021 Comment on above: Description: Convert ed from [facility]. Please see archived information for full log information. Screw, Lock 2.0 X 15 Maxdrv Ti Alloy Case [id number] Start: 11-07-2021 Comment on above: Description: Convert ed from [facility]. Please see archived information for full log information. Device, Anasotmo tic 2.5mm Case [id number] Start: 11-07-2021 Comment on above: Description: Convert ed from [facility]. Please see archived information for full log information. Probe, Flow Dopp ler Claude-Raz Case [id number] Start: 11-07-2021 Comment on above: Description: Convert ed from [facility]. Please see archived information for full log information. Goals Date Patient Goal Desired Activity /State Functional Status Date Assessment Result Facility 09-15-2024 Functional status Ambulates [facility] Work Phone: 01-25-2022 Functional status Ambulates;Up ad yaneth [facility] Work Phone: 01-23-2022 Functional status Ambulates;Up ad yaneth [facility] Work Phone: Bladder: fully continent [facility] NEGATED: Highlighted row Functional performance Functional status health issues are not documented Disease KL-Hyfkaslkpryldl-Gd min [place] [address] Work Phone: Mental Status Date Assessment Result Facility 10-21-2024 Cognitive function Level Of Cons ciousness Sedated [facility] Work Phone: 10-21-2024 Cognitive function Voice/Name [facility] Work Phone: 09-15-2024 Cognitive function Awake;Alert;A ppropriate ;Follows Commands [facility] Work Phone: 09-03-2023 Cognitive function Level Of Cons ciousness Follows Commands;Drowsy [facility] Work Phone: 09-03-2023 Cognitive function Voice/Name [facility] Work Phone: 01-25-2022 Cognitive function Voice/Name [facility] Work Phone: 01-23-2022 Cognitive function Voice/Name [facility] Work Phone: 11-09-2021 Cognitive functi ons [id number] [facility] 04-30-2019 Cognitive function Mood Descript ion Appropriate [facility] Work Phone: NEGATED: Highlighted row Cognitive function [Interpretation] Cognitive status health issues are not documented Disease IA-Zxyaeaqbcqvtso-M dmin [place] [address] Work Phone: Clinical Notes 05-24-2019 to 03-31-2025 Assessment & Plan Note - Rachel Brooks MD - 03/14/2025 3:32 PM EDTAssessment & Plan Note - Rachel Brooks MD - 03/14/2025 3:32 PM EDTRachel Brooks MD - 03/01/2025 8:30 AM EDT Note Date & Type Note Facility 03-31-2025 Procedure note [facility] 03-14-2025 Evaluation + Plan note Associated Problem(s): Open wound of neck This has been stable for several years, no change He has been seen at wound center and I referred him back at last visit [facility] Work Phone: 03-14-2025 Evaluation + Plan note Associated Problem(s): 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 No evidence of disease today [facility] Work Phone: 03-14-2025 Evaluation + Plan note Associated Problem(s): Cancer of oral cavity (Multi) No evidence of disease on exam or endoscopy today Follow up in 6 months with new H&N attending since I am leaving, discussed transition and offered encouragement [facility] Work Phone: 03-14-2025 Miscellaneous Notes Associated Problem(s): [...] for new speaking valve Will order from [place] 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 [...] a contributing factor documented in this encounter [facility] Work Phone: 03-03-2025 Procedure note [facility] 03-01-2025 Evaluation + Plan note Associated Problem(s): Oropharyngeal dysphagia Chronic, moderate to severe He is requiring repeated dilations every 6 months Discussed total laryngectomy (as described above) but has severe wound healing issues and Continue current diet and modifications Weight stable [facility] Work Phone: 03-01-2025 Evaluation + Plan note Associated Problem(s): Hypothyroidism Chronic, acquired Adverse effect of radiation Continue daily synthroid [facility] Work Phone: 03-01-2025 Evaluation + Plan note Associated Problem(s): Tracheostomy dependence (Multi) Discussed that his airway is too restricted to consider trach removal Continue trach care Uses finger to cap but is asking for new speaking valve Will order from [place] 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 He is going to consider this. [facility] Work Phone: 03-01-2025 Evaluation + Plan note Associated Problem(s): Sensorineural hearing loss (SNHL) of both ears Does well with bilateral BRENNAN Bilateral SNHL - Chemotherapy is a contributing factor [facility] Work Phone: 03-01-2025 History of Present illness Narrative Cancer follow up HPI: My Jama is a 64 y.o. male following up with me today for his A4W8xE0 oral cavity SCCa with chin involvement. Last seen 09/15. He has a history of T4O3zM4 oral cavity SCCa with chin involvement s/p [...] moderate. No new concerns today. 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 documented in this encounter [facility] Work Phone: 03-01-2025 Instructions Koki Schneider RN - 03/01/2025 8:[address] Brooks evaluated you today. Your care plan is outlined below: -- Follow up with Dr. Kim Jha in May. Call [phone] to schedule this appointment. General appointment line please call [phone] For general questions or scheduling issues please call [phone] option #2 For medical questions or surgery scheduling please call [phone] on Mondays, Wednesdays and or [phone] on Tuesdays and Fridays. Please be sure [...] appreciate your understanding. documented in this encounter [facility] Work Phone: 01-05-2025 Evaluation note Diagnosis Onset Date Resolution Head and neck cancer chronic Apri l 2024 10:58am Lung nodules chronic January 05, 2025 10:58am Regional lymph node metastasis present chronic January 05, 025 10:58am History of head and neck cancer acute February 02, 2025 9 :28am Esophageal dysphagia chronic February 11, 2025 7:56am [facility] Work Phone: 1(900) 205-152604-09-2025 Radiology Diagnostic study note [facility] Imaging Services [address] [place] [address] Chest WITH Contrast MR#: [id number] Acct: [id number] Name: MY JAMA Rep #: [id number] : 1960 M 64 From: Laney Centeno MD PCP: Sadie Santiago MACHINE ROOM ENGINEER-C Status: REG C LI Study:Chest WITH Contrast Date of Exam: 12/29/24 Exam# [id number] Ordering Dr: Quincy Simpson MD PROCEDURE: CHEST [...] within the right upper lobe. Reading Location: [facility] CC: YARI Santiago; Dr. Quincy Simpson MD ~ Leasing Professional: Signed [facility]03-28-2025 Procedure note [facility] Speech Pathology [address] [place] [address] Modified Barium Swallow Study MR#: [id number] Acct: [id number] Name: MY JAMA Rep #:[id number] : 1960 64 From: Latosha Verma [facility]-VACUUM DRIER OPERATOR Verbal discussion with patient about POC 12/18/2024: VACUUM DRIER OPERATOR attempted to call the patient 12/17/[address] POC after interpretation ofMBSS, but pt had phone difficulties. Pt came into the office 12/18/2024 for this discussion. Unfortunately, the patient is not a candidate for participation in [facility] (MDTP) following results ofMBSS revealing silent aspiration. Pt also has contraindications including severe fibrosis, presenceof trach, and esophageal dysphagia. VACUUM DRIER OPERATOR recommended continuing with therapy 3-4X/week, X3-5 weeks for implementation of oropharyngeal strengthening,jaw ROM, and neck ROM exercises in junction w/ myofascial release. Pt is unable to attend therapy this coming Saturday, and the VACUUM DRIER OPERATOR is out of the office this upcoming Saturday. Myofascial release is best completed in a more intensive therapy model (VACUUM DRIER OPERATOR recommends 3-4X/week, X3-5 weeks) to be effective. Pt requested resuming dysphagia therapy after VACUUM DRIER OPERATOR submits re-evaluation as he wouldonly be able [...] after POintake. Hx of esophageal dysphagiamanaged by furniture packer, Dr. Akhtar, s/p EGD w/ botox injection [...] patient was interested in the program, so VACUUM DRIER OPERATOR recommended this MBSS as re-evaluation to determine [...] Result: 8= enters airway/below vocal folds/no effort [place] Thick Liquid via teaspoon: Result: 3= enters airways/above vocal folds/not ejected [place] Thick Liquid via teaspoon Trial 2: Result: [...] Status Active ST Patient: Active Contact Information [facility] Speech Therapy:: Latosha Boyer M.A. CCC-VACUUM DRIER OPERATOR? Speech-Language Pathologist?? [facility] [address] [place] [address]? [email or web address]?? [phone] 12/17/24 Anjelica Boogie CCC-VACUUM DRIER OPERATOR> Date/Time Latosha Boyer M.A. CCC-VACUUM DRIER OPERATOR Co-Signature Required for all Medicare patients Date/Time Co-Signature CC: ~ [facility]01-29-2025 Evaluation note* Diagnosis Onset Date Resolution Status Admit Date Esophageal dysphagia chronic [place] glory 2024 5:27am Head and neck cancer chronic Apri l 2024 10:58am Lung nodules chronic January 05, 2025 10:58am Regional lymph node metastasis present chronic January 05, 025 10:58am [facility] Work Phone: 1(922) 464-315101-29-2025 [facility] Medical Records Department [address] [place] [address] History Physical Exam 10/21/24 0708 MR#: [id number] Acct: [id number] Name: MY JAMA Rep #: [id number] : 1960 64 From: Elliott Akhtar DO PCP: YARI Santillan Status:[facility] Location: [place] [address] HPI - General General Date of Admission: 10/21/24 Date of Service: 10/21/24 Chief Complaint: dysphagia HPI Narrative MY JAMA, is a 64 M who presents for esophageal dilation [facility] 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 Underwent radiation with concurrent carboplatin for head/neck cancer. At follow up it was noted he has dysphagia. ? Modified Barium 04.13.22 moderate oropharyngeal dysphagia, mild esophageal dysphasia. ? Modified Barium 06.15.22 moderate- severe oropharyngeal phase dysphagia, puree texture. [...] proximal esophagus with dilation up to 42 Thai savory dilator. He did well up until a month ago where he had a worsening swallowing. He will undergo repeat upper endoscopy with Botox injection and dilation of the esophagus. [facility] Medical History Wears hearing aid Wears glasses [...] Unknown Rx tablet nyst (more content not included)...[facility]12-16-2024 Evaluation note* Diagnosis Onset Date Resolution Status Admit Date Head and neck cancer chronic Dece mber 2023 1:32pm Lung nodules chronic August 1:32pm Regional lymph node metastasis present chronic August 1:32pm Right upper lobe pulmonary nodule acute September 15, 2 024 8:44am Head and neck cancer chronic [place] 2024 11:59am Lung nodules chronic September 28, 2024 11:59am Regional lymph node metastasis present chronic September 28, 2024 11:59am Esophageal dysphagia chronic [place] 2024 5:27am [facility] Work Phone: 1(262) 642-949812-09-2024 Evaluation + Plan note* Assessment & Plan Note - Rachel Brooks MD - 08/31/2024 9:59 AM ESTAssociated Problem(s): Open wound of neck Referral back to wound center [facility] Work Phone: 1(261) 601-592312-09-2024 Evaluation + Plan note* Assessment & Plan Note - Rachel Brooks MD - 08/31/2024 9:59 AM ESTAssociated Problem(s): 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) No evidence of disease today [facility] Work Phone: 1([phone]) 973-439512-09-2024 Evaluation + Plan note* Assessment & Plan Note - Rachel Brooks MD - 08/31/2024 9:59 AM ESTAssociated Problem(s): Cancer of oral cavity (Multi) No evidence of disease on exam or endoscopy today Follow up in 6 months [facility] Work Phone: 1(143) 860-935912-09-2024 Evaluation + Plan note* Assessment & Plan [...] Continue current diet and modifications Weight stable [facility] Work Phone: 1([phone]) 234-690812-09-2024 Miscellaneous Notes* Assessment & Plan Note - [...] is a contributing factor [facility] Work Phone: 1(310) 809-833112-09-2024 Evaluation + Plan note* Assessment & Plan Note - Rachel Brooks MD - 08/31/2024 9:58 AM ESTAssociated Problem(s): Hypothyroidism Chronic, acquired Adverse effect of radiation Continue daily synthroid [facility] Work Phone: 1([phone]) 332-246712-09-2024 Evaluation + Plan note* Assessment & Plan Note - Rachel Brooks MD - 08/31/2024 9:58 AM ESTAssociated Problem(s): Tracheostomy dependence (Multi) Discussed that his airway is too restricted to consider trach removal Continue trach care Uses finger to cap when speaking has difficulty even with speaking valve [facility] Work Phone: 1([phone]) 457-835612-09-2024 Evaluation + Plan note* Assessment & Plan Note - Rachel Brooks MD - 08/31/2024 9:57 AM ESTAssociated Problem(s): Sensorineural hearing loss (SNHL) of both ears Good response to BRENNAN - wearing them today and doing well Bilateral SNHL Chemotherapy is a contributing factor [facility] Work Phone: [phone]) 717-326112-09-2024 History of Present illness Narrative* Rachel Brooks MD - 08/31/2024 9:00 AM EST Cancer follow up HPI: My Jama is a 64 y.o. 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 Last seen 04/15. Continues with Amber SCOTT. Is no longer capping as much. Reports it is harder for him to breath when he caps it. Wound has remained open in the left neck despite yrs of wound care so he stopped seeing them. He has a history of H3U6sR0 oral cavity SCCa with chin involvement s/p [...] SNHL kizzy in high freq. History: Dx1: ZfV8uA1 left neck (unknown primary) 2018 Dx2: B3Z4dG6 SCCa of the oral cavity 2020 Dx3: [...] no lymphadenopathy 09/12: Oral cavity biopsy at [facility] +SCCa 10/14: PET FDG avid oral cavity [...] exam, discussion and plan. documented in this [facility] Work Phone: 1([phone]) 100-530812-09-2024 Instructions* Patient Instructions* Koki Schneider RN - 08/31/2024 9:[address] Brooks evaluated you today. Your care plan is outlined below: -- see wound care -- Follow up with Dr. Brooks in 6 mo. This appointment was scheduled at the end of your visit today. If you need to reschedule, please call the office at [phone]. Please keep in mind that last minute cancellations often result in delayed follow-up appointments. General appointment line please call [phone] For general questions or scheduling issues please call [phone] option #2 For medical questions or surgery scheduling please call [phone] on Mondays, Wednesdays and or [phone] on Tuesdays and Fridays. Please be sure [...] We appreciate your understanding. documented in this [facility] Work Phone: 1(632) 177-443907-22-2024 Evaluation + Plan note* Assessment & Plan Note - Rachel Brooks MD - 04/13/2024 2:34 PM EDTAssociated Problem(s): Tracheostomy dependence (Multi) Discussed that his airway is too restricted to consider trach removal Continue trach care Can use speaking valve during day [facility] Work Phone: 1(749) 617-494107-22-2024 Miscellaneous Notes* Assessment & Plan Note - [...] is a contributing factor documented in this [facility] Work Phone: 1([phone]) 360-616607-22-2024 Evaluation + Plan note* Assessment & Plan Note - Rachel Brooks MD - 04/13/2024 2:33 PM EDTAssociated Problem(s): 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 Akhtar 02/13 Continue current diet and modifications Weight stable [facility] Work Phone: 1(542) 188-991207-22-2024 Evaluation + Plan note* Assessment & Plan Note - Rachel Brooks MD - 04/13/2024 2:32 PM EDTAssociated Problem(s): Hypothyroidism Chronic, acquired Adverse effect of radiation Continue daily synthroid [facility] Work Phone: [phone]) 449-837207-22-2024 Evaluation + Plan note* Assessment & Plan Note - Rachel Brooks MD - 04/13/2024 2:31 PM EDTAssociated Problem(s): Sensorineural hearing loss (SNHL) of both ears Reviewed audiogram obtained today Has BRENNAN and is using these Chemotherapy is a contributing factor [facility] Work Phone: 1(160) 482-156507-22-2024 History of Present illness Narrative* Rachel Brooks MD - 04/13/2024 1:45 PM EDT Cancer follow up HPI: My Jama is a 63 y.o. male following up with me today for follow up of his M3H0fS2 oral cavity SCCa with chin involvement. Last seen 02/13. Continues with Amber SCOTT caps during day but he forgot it today. Wound has remained open in the left neck despite yrs of wound care. He has a history of W3R8vP2 oral cavity SCCa with chin involvement s/p triple, trach, PEG, composite resection, excision of skin and soft tissue, segmental mandibulectomy, right neck dissection, leftneck exploration for vessels, reconstruction with left ALT and left fibular free flap on 11/07/21. Patient completed adjuvant chemoradiation on 02/06/22. He is being see by Dr. Elliott Akhtar GI. Dr. Akhtar did an esoph/dilation with botox injection 02/13 which has helped with his chronic dysphagia. He doesn't have a PEG. He had follow up by audiology today and his BRENNAN are working well. Has bilateral SNHL kizzy in high freq. History: Dx1: PqI2iO2 left neck (unknown primary) 2018 Dx2: T2V3dY7 SCCa of the oral cavity 2020 Dx3: [...] no lymphadenopathy 09/12: Oral cavity biopsy at [facility] +SCCa 10/14: PET FDG avid oral cavity [...] exam, discussion and plan. 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) No evidence of dx [facility] Work Phone: 1([phone]) 684-263205-13-2024 Evaluation + Plan note* Assessment & Plan Note - Rachel Brooks MD - 02/03/2024 9:16 AM EDTAssociated Problem(s): Cancer of oral cavity (Multi) No evidence of dx Follow up in 6 months [facility] Work Phone: 1(659) 797-123005-13-2024 Evaluation + Plan note* Assessment & Plan Note - Rachel Brooks MD - 02/03/2024 9:16 AM EDTAssociated Problem(s): Oropharyngeal dysphagia Chronic, moderate, adverse effect of radiation Worsening over the last 1-2 months Has h/o prior esoph dilation by Dr. Akhtar since it's very hard for him to get to [place] Seeing Dr. Akhtar on Saturday He will likely need another esoph dilation Has failed MBS but is tolerating po without PNA and does not want PEG [facility] Work Phone: 1([phone]) 327-199705-13-2024 Miscellaneous Notes* Assessment & Plan Note - [...] very hard for him to get to [place] Seeing Dr. Akhtar on Saturday He will [...] to follow with audiology documented [facility] Work Phone: [phone]) 628-598905-13-2024 Evaluation + Plan note* Assessment & Plan Note - Rachel Brooks MD - 02/03/2024 9:15 AM EDTAssociated Problem(s): Hypothyroidism Acquired hypothyroidism Continue daily synthroid [facility] Work Phone: 1([phone]) 227-422005-13-2024 Evaluation + Plan note* Assessment & Plan Note - Rachel Brooks MD - 02/03/2024 9:15 AM EDTAssociated Problem(s): Sensorineural hearing loss (SNHL) of both ears BRENNAN check today, doing well Continue to follow with audiology [facility] Work Phone: 1(216) 688-895205-13-2024 History of Present illness Narrative* Rachel Brooks MD - 02/03/2024 8:45 AM EDT Cancer follow up TSH: Chest: HPI: My Jmaa is a 63 y.o. male following up with me today for follow up of his W5T9cW8 oral cavity SCCa with chin involvement. Last seen 09/14. He continues to be followed at the [place] wound clinic for his left neck chronic skin wound. Continues with Amber SCOTT caps during day. Wound has remained open in the left neck. He has a history of P7F6nS7 oral cavity SCCa with chin involvement s/p triple, trach, PEG, composite resection, excision of skin and soft tissue, segmental mandibulectomy, right neck dissection, leftneck exploration for vessels, reconstruction with left ALT and left fibular free flap on 11/07/21. Patient completed adjuvant chemoradiation on 02/06/22. He is being see by Dr. Elliott Akhtar GI. Dr. Akhtar did an esoph/dilation 09/14 which did help his swallowing for several weeks but then returned to previous baseline. He is seeing Dr. Akhtar on Saturday. ~1 month ago he started having to crush his medium-sized pills which is new. Seems like his dysphagia is worse. He doesn't have a PEG. He is seeing Dr. Soto (rad onc) today. History: Dx1: GcW1dK1 left neck (unknown primary) 2018 Dx2: Q0U5hJ9 SCCa of the oral cavity 2020 Dx3: [...] no lymphadenopathy 09/12: Oral cavity biopsy at [facility] +SCCa 10/14: PET FDG avid oral cavity [...] very hard for him to get to [place] Seeing Dr. Akhatr on Saturday He will likely need another [...] exam, discussion and plan. documented in [facility] encounterUniversity [facility] Work Phone: 1(787) 517-599412-12-2023 Procedure [facility] 09-03-2023 Procedure [facility]12-11-2023 Evaluation + Plan note* Assessment & Plan Note - Rachel Brooks MD - 09/02/2023 11:13 PM EST Associated Problem(s): Cancer of oral cavity (CMS/HCC) No evidence of recurrence Adverse effects of treatment including dysphagia Remains trach/PEG dependent Has chronic left neck wound Follow up in 3-4 months [facility] Work Phone: 1([phone]) 957-455312-11-2023 Miscellaneous Notes* Assessment & Plan Note - [...] is inconvenient to him documented in this encounterUniversity [facility] Work Phone: [phone]) 138-963712-11-2023 Evaluation + Plan note* Assessment & Plan Note - Rachel Brooks MD - 09/02/2023 11:12 PM ESTAssociated Problem(s): Hypothyroidism Needs updated TSH [facility] Work Phone: [phone]) [phone] Evaluation + Plan note* Assessment & Plan [...] in [place] which is inconvenient to him [facility] Work Phone: [phone]) 264-686312-11-2023 History of Present illness Narrative* Rachel Brooks MD - 09/02/2023 1:30 PM EST Cancer follow up TSH: Due today Chest: Due today HPI: My Jama is a 63 y.o. male following up with me today for follow up of his U6M0mC6 oral cavity SCCa with chin involvement. Last seen 03/15. He continues to be followed at the [place] wound clinic for his left neck chronic skin wound. Continues with Amber SCOTT caps during day. Wound has remained open in the left neck. He has a history of G4E9fH0 oral cavity SCCa with chin involvement s/p [...] Patient has also been told he has "no voice box" but he has his voice box so there is certainly some misunderstanding of his history. He has his trach in place and speaks with his speaking valve. History: Dx1: UaV4rY7 left neck (unknown primary) 2018 Dx2: G3A5rH0 SCCa of the oral cavity 202004/28/18: +odynophagia, [...] no lymphadenopathy 09/12: Oral cavity biopsy at [facility] +SCCa 10/14: PET FDG avid oral cavity [...] size: 6 mm; Tracheostomy tube type: shiley; [place] speaking valve present; Neck comments: Superficial left [...] exam, discussion and plan. documented in this [facility] Work Phone: 1(753) 971-566111-01-2023 Instructions* Name Dates Details Follow up in [...] Internal Medicine; [facility] Work Phone: 1(510) 581-325007-19-2023 Progress note Author Joya Galvez [facility] April 10, 2023 10:05am Note Date/Time April 10, 2023 10:0 5am [facility] [address] [place] [address] Progress Note - Wound Care 04/10/23 1002 MR#: [id number] Acct: [id number] Name: MY JAMA Rep #:[id number] : 1960 62 From: Joya Galvez NP MACHINE ROOM ENGINEER-C PCP: YARI Pardo Status:REG RCR Location: History [...] of first interosseous muscles. Coordination / Balance: qvvmwk-ji-smpn test normal Speech: speech abnormal Gait (Neuro): normal gait Psych mental status grossly normal, thought process normal, cooperative and affect normal Debridement Note Debridement Note No debridement was completed: No debridement was completed today Post-Debridement Measurements and Additional Note: Post-Debridement Measurements/Treatment WC - Nurse 1 - General Ulcer Assessment Start: 03/27/23 09:10 Freq: Status: Active Protocol: WC.LOWEXT Activity Type Activity Date Activity User E-sign Co-sign Detail Recorded Client Recorded Date Recorded By Document 03/27/23 09:11 [facility] [id number] 03/27/23 09:17 BMF Document 04/03/23 08:38 [facility] [id number] 04/03/23 08:45 BM Document 04/10/23 08:36 [facility] [id number] 04/10/23 08:41 BMF 03/27/23 04/03/23 04/10/23 09:11 08:38 08:36 WC - Today's Visit Information Type of service Follow-up Visit Follow-up Visit Follow-up Visit (Physician/[facility] (Physician/[facility] (Physician/[facility] ) ) ) Arrival Mode Ambulatory Ambulatory [...] Recorded Date Recorded By Document 03/27/23 09:11 [facility] [id number] 03/27/23 09:17 BM Document 04/03/23 08:38 [facility] [id number] 04/03/23 08:45 BM Document 04/10/23 08:36 [facility] [id number] 04/10/23 08:41 BMF 03/27/23 04/03/23 04/10/23 09:11 08:38 08:36 Wound [...] Attached -Granulation Amt Small (1-33%) -Granulation Quality [place] -Slough/Fibrin Yes -Necrosis Amt Large (67-100%) -Necrotic [...] 5% Lidocaine 5% Lidocaine Gel Gel Gel DHAVAL - Nurse 2 - General Ulcer CM Notes Start: 03/27/23 09:10 Freq: Status: Active Protocol: Activity Type Activity Date Activity User E-sign Co-sign Detail Recorded Client Recorded Date Recorded By Document 03/27/23 09:34 MW [id number] 03/27/23 09:36 MW Document 04/03/23 08:56 MW [id number] 04/03/23 08:59 MW Document 04/10/23 08:48 MW [id number] 04/10/23 08:51 MW 03/27/23 04/03/23 04/10/23 09:34 [...] Date Recorded By Document 03/27/23 09:40 MW [id number] 03/27/23 09:40 MW Document 04/03/23 08:59 MW [id number] 04/03/23 09:00 MW Document 04/10/23 08:51 MW [id number] 04/10/23 08:52 MW 03/27/23 04/03/23 04/10/23 09:40 [...] 1005 <Electronically signed by Joya Galvez NP MACHINE ROOM ENGINEER-C> Cosigner Signature (if applicable): CC: ~ Signed [facility] Work Phone: 1(180) [phone] Progress note Author Joya Galvez [facility] April 03, 2023 10:07am Note Date/Time April 03, 2023 9:51 am [facility] [address] [place] [address] Progress Note - Wound Care 04/03/23 0950 MR#: [id number] Acct: [id number] Name: MY JAMA Rep #:[id number] : 1960 62 From: Joya Galvez NP MACHINE ROOM ENGINEER-C PCP: YARI Pardo Status:REG RCR Location: History [...] of first interosseous muscles. Coordination / Balance: oegpee-px-bzmk test normal Speech: speech abnormal Gait (Neuro): [...] Recorded Date Recorded By Document 03/27/23 09:11 [facility] [id number] 03/27/23 09:17 [facility] Document 04/03/23 08:38 [facility] [id number] 04/03/23 08:45 [facility] 03/27/23 04/03/23 09:11 08:38 - Today's Visit Information Type of service Follow-up Visit Follow-up Visit (Physician/[facility] (Physician/[facility] ) ) Arrival Mode Ambulatory Ambulatory Transfer [...] Recorded Date Recorded By Document 03/27/23 09:11 [facility] [id number] 03/27/23 09:17 [facility] Document 04/03/23 08:38 [facility] [id number] 04/03/23 08:45 BM 03/27/23 04/03/23 09:11 08:38 Wound Center Nurse [...] Attached -Granulation Amt Small (1-33%) -Granulation Quality [place] -Slough/Fibrin Yes -Necrosis Amt Large (67-100%) -Necrotic [...] Used 5% Lidocaine 5% Lidocaine Gel Gel DHAVAL - Nurse 2 - General Ulcer CM Notes Start: 03/27/23 09:10 Freq: Status: Active Protocol: Activity Type Activity Date Activity User E-sign Co-sign Detail Recorded Client Recorded Date Recorded By Document 03/27/23 09:34 MW [id number] 03/27/23 09:36 MW Document 04/03/23 08:56 MW [id number] 04/03/23 08:59 MW 03/27/23 04/03/23 09:34 08:56 [...] Date Recorded By Document 03/27/23 09:40 MW [id number] 03/27/23 09:40 MW Document 04/03/23 08:59 MW [id number] 04/03/23 09:00 MW 03/27/23 04/03/23 09:40 08:59 [...] 1007 <Electronically signed by Joya Galvez NP MACHINE ROOM ENGINEER-C> Cosigner Signature (if applicable): CC: ~ Signed [facility] Work Phone: 1(540) 268-628307-05-2023 Progress note Author Joya Galvez [facility] March 27, 2023 12:15pm Note Date/Time March 27, 2023 12:15 pm [facility] [address] [place] [address] Progress Note - Wound Care 03/27/23 1212 MR#: [id number] Acct: [id number] Name: MY JAMA Rep #:[id number] : 1960 62 From: Joya Galvez NP MACHINE ROOM ENGINEER-C PCP: YARI Pardo Status:REG RCR Location: History [...] of first interosseous muscles. Coordination / Balance: gtrhcn-ay-exxx test normal Speech: speech abnormal Gait (Neuro): [...] Recorded Date Recorded By Document 03/27/23 09:11 [facility] [id number] 03/27/23 09:17 [facility] 03/27/23 09:11 - Today's Visit Information Type of service Follow-up Visit (Physician/[facility] ) Arrival Mode Ambulatory Transfer Assistance None [...] Recorded Date Recorded By Document 03/27/23 09:11 [facility] [id number] 03/27/23 09:17 [facility] 03/27/23 09:11 Wound Center Nurse 1 [...] Date Recorded By Document 03/27/23 09:34 MW [id number] 03/27/23 09:36 MW 03/27/23 09:34 Wound Center [...] Date Recorded By Document 03/27/23 09:40 MW [id number] 03/27/23 09:40 MW 03/27/23 09:40 Wound Care [...] at the time of the procedure 03/27/23 1215 <Electronically signed by Joya Galvez NP MACHINE ROOM ENGINEER-C> Cosigner Signature (if applicable): CC: ~ Signed [facility] Work Phone: 1(158) 131-909306-28-2023 Progress note Author Joya Galvez [facility] March 20, 2023 11:22am Note Date/Time March 20, 2023 11:2 2am [facility] [address] [place] [address] Progress Note - Wound Care 03/20/23 1119 MR#: [id number] Acct: [id number] Name: MY JAMA Rep #:[id number] : 1960 62 From: Joya Galvez NP MACHINE ROOM ENGINEER-C PCP: YARI Pardo Status:REG RCR Location: History [...] of first interosseous muscles. Coordination / Balance: bknmjj-ut-pmck test normal Speech: speech abnormal Gait (Neuro): [...] Start: 02/27/23 09:26 Freq: Status: Active Protocol: NEYMART Activity Type Activity Date Activity User E-sign Co-sign Detail Recorded Client Recorded Date Recorded By Document 02/27/23 10:23 AK [id number] 02/27/23 10:25 AK Document 03/06/23 11:03 [facility] [id number] 03/06/23 11:07 BM Document 03/13/23 09:28 [facility] [id number] 03/13/23 09:33 [facility] Document 03/20/23 09:07 [facility] [id number] 03/20/23 09:08 BMF 02/27/23 03/06/23 03/13/23 10:23 11:03 09:28 - Today's Visit Information Type of service Follow-up Visit Follow-up Visit Follow-up Visit (Physician/[facility] (Physician/[facility] (Physician/[facility] ) ) ) Arrival Mode Ambulatory Ambulatory [...] Visit Information Type of service Follow-up Visit (Physician/[facility] ) Arrival Mode Ambulatory Transfer Assistance None [...] Recorded Date Recorded By Document 02/27/23 10:23 AK [id number] 02/27/23 10:25 AK Document 03/06/23 11:03 [facility] [id number] 03/06/23 11:07 [facility] Document 03/13/23 09:28 [facility] [id number] 03/13/23 09:33 BM Document 03/20/23 09:07 [facility] [id number] 03/20/23 09:08 [facility] 02/27/23 03/06/23 03/13/23 10:23 11:03 09:28 [...] (1-33%) Small (1-33%) Small (1-33%) -Granulation Quality [place] -Slough/Fibrin Yes Yes Yes -Necrosis Amt Large [...] Intact -Granulation Amt Medium (34-66%) -Granulation Quality [place] -Slough/Fibrin Yes -Necrosis Amt Medium (34-66%) -Necrotic [...] 02/27/23 09:27 MW Document 03/06/23 11:10 MW [id number] 03/06/23 11:25 MW Document 03/13/23 09:49 MW [id number] 03/13/23 09:50 MW 02/27/23 03/06/23 03/13/23 09:27 11:10 09:49 Wound Center Nurse 2 #1 Chin -Time : 11:10 09:50 -Correct Patient Yes Yes Yes [...] 02/27/23 09:31 MW Document 03/06/23 11:20 MW [id number] 03/06/23 11:29 MW Document 03/13/23 09:55 MW [id number] 03/13/23 09:56 MW Document 03/20/23 11:08 NE [id number] 03/20/23 11:09 AK 02/27/23 03/06/23 03/13/23 09:30 [...] misadventure at the time of the procedure 03/20/231121 <Electronically signed by Joya Galvez NP MACHINE ROOM ENGINEER-C> Cosigner Signature (if applicable): CC: ~ Signed [facility] Work Phone: 1(577) 354-943706-21-2023 Progress note Author Joya Galvez [facility] March 13, 2023 11:25am Note Date/Time March 13, 2023 11:2 5am [facility] [address] [place] [address] Progress Note - Wound Care 03/13/231122 MR#: [id number] Acct: [id number] Name: MY JAMA Rep #:[id number] : 1960 62 From: Joya Galvez NP MACHINE ROOM ENGINEER-C PCP: YARI Pardo Status:REG RCR Location: History [...] of first interosseous muscles. Coordination / Balance: qytwtc-jm-fkpm test normal Speech: speech abnormal Gait (Neuro): [...] Recorded Date Recorded By Document 02/27/23 10:23 NE [id number] 02/27/23 10:25 NE Document 03/06/23 11:03 [facility] [id number] 03/06/23 11:07 [facility] Document 03/13/23 09:28 [facility] [id number] 03/13/23 09:33 [facility] 02/27/23 03/06/23 03/13/23 10:23 11:03 09:28 - Today's Visit Information Type of service Follow-up Visit Follow-up Visit Follow-up Visit (Physician/[facility] (Physician/[facility] (Physician/[facility] ) ) ) Arrival Mode Ambulatory Ambulatory [...] Recorded Date Recorded By Document 02/27/23 10:23 NE [id number] 02/27/23 10:25 AK Document 03/06/23 11:03 [facility] [id number] 03/06/23 11:07 [facility] Document 03/13/23 09:28 [facility] [id number] 03/13/23 09:33 [facility] 02/27/23 03/06/23 03/13/23 10:23 11:03 09:28 [...] (1-33%) Small (1-33%) Small (1-33%) -Granulation Quality [place] -Slough/Fibrin Yes Yes Yes -Necrosis Amt Large [...] Recorded By Document 02/27/23 09:27 MW Desktop 06/07/23 09:27 MW Document 03/06/23 11:10 MW [id number] 03/06/23 11:25 MW Document 03/13/23 09:49 MW [id number] 03/13/23 09:50 MW 02/27/23 03/06/23 03/13/23 09:27 [...] 02/27/23 09:31 MW Document 03/06/23 11:20 MW [id number] 03/06/23 11:29 MW Document 03/13/23 09:55 MW [id number] 03/13/23 09:56 MW 02/27/23 03/06/23 03/13/23 09:30 [...] 1125 <Electronically signed by Joya Galvez NP MACHINE ROOM ENGINEER-C> Cosigner Signature (if applicable): CC: ~ Signed [facility] Work Phone: 1(887) 321-711006-14-2023 Progress note Author Joya Galvez [facility] March 06, 2023 11:39am Note Date/Time March 06, 2023 11:3 9am [facility] [address] [place] [address] Progress Note - Wound Care 03/06/23 1135 MR#: [id number] Acct: [id number] Name: MY JAMA Rep #:[id number] : 1960 62 From: Joya Galvez NP MACHINE ROOM ENGINEER-C PCP: YARI Pardo Status:REG RCR Location: History [...] of first interosseous muscles. Coordination / Balance: sudtfo-zh-bwnp test normal Speech: speech abnormal Gait (Neuro): [...] Recorded Date Recorded By Document 02/27/23 10:23 NE [id number] 02/27/23 10:25 NE Document 03/06/23 11:03 [facility] [id number] 03/06/23 11:07 [facility] 02/27/23 03/06/23 10:23 11:03 - Today's Visit Information Type of service Follow-up Visit Follow-up Visit (Physician/[facility] (Physician/[facility] ) ) Arrival Mode Ambulatory Ambulatory Transfer [...] Date Recorded By Document 02/27/23 10:23 SHANTELL [id number] 02/27/23 10:25 NE Document 03/06/23 11:03 [facility] [id number] 03/06/23 11:07 [facility] 02/27/23 03/06/23 10:23 11:03 Wound Center [...] Amt Small (1-33%) Small (1-33%) -Granulation Quality Pale,[place] Red -Slough/Fibrin Yes Yes -Necrosis Amt Large [...] 02/27/23 09:27 MW Document 03/06/23 11:10 MW [id number] 03/06/23 11:25 MW 02/27/23 03/06/23 09:27 11:10 Wound Center Nurse 2 #1 Chin -Time 09: 11:10 -Correct Patient Yes Yes -Correct Side, [...] 02/27/23 09:31 MW Document 03/06/23 11:20 MW [id number] 03/06/23 11:29 MW 02/27/23 03/06/23 09:30 11:20 [...] 1139 <Electronically signed by Joya Galvez NP MACHINE ROOM ENGINEER-C> Cosigner Signature (if applicable): CC: ~ Signed [facility] Work Phone: 1(721) 155-498506-07-2023 Progress note Author Joya Galvez [facility] February 27, 2023 10:07am Note Date/Time February 27, 2023 10:05 am [facility] [address] [place] [address] Progress Note - Wound Care 02/27/23 1003 MR#: [id number] Acct: [id number] Name: MY JAMA Rep #:[id number] : 1960 62 From: Joya Galvez NP MACHINE ROOM ENGINEER-C PCP: YARI Pardo Status:REG RCR Location: History [...] of first interosseous muscles. Coordination / Balance: wfnbly-ko-ciey test normal Speech: speech abnormal Gait (Neuro): [...] Document 02/27/23 09:30 MW Desktop 02/27/23 09:31 02/27/23 09:30 Wound Care Center Nurse 3 [...] 1007 <Electronically signed by Joya Galvez NP MACHINE ROOM ENGINEER-C> Cosigner Signature (if applicable): CC: ~ Signed [facility] Work Phone: 1(528) 314-869005-31-2023 Progress note Author Joya Galvez [facility] February 20, 2023 9:05am Note Date/Time February 20, 2023 9:05a [facility] [address] [place] [address] Progress Note - Wound Care 02/20/23901 MR#: [id number] Acct: [id number] Name: MY JAMA Rep #:[id number] : 1960 62 From: Joya Galvez NP MACHINE ROOM ENGINEER-C PCP: YARI Pardo Status:REG RCR Location: History [...] of first interosseous muscles. Coordination / Balance: jxkhok-iq-ruye test normal Speech: speech abnormal Gait (Neuro): [...] Recorded Date Recorded By Document 01/23/23 08:17 [facility] [id number] 01/23/23 08:26 [facility] Document 01/30/23 08:27 [facility] [id number] 01/30/23 08:33 [facility] Document 02/06/23 08:18 [facility] [id number] 02/06/23 08:23 BM Document 02/13/23 08:33 BM [id number] 02/13/23 08:40 [facility] Document 02/20/23 08:46 MW [id number] 02/20/23 08:49 MW 01/23/23 01/30/23 02/06/23 08:17 08:27 08:18 WC - Today's Visit Information Type of service Follow-up Visit Follow-up Visit Follow-up Visit (Physician/[facility] (Physician/[facility] (Physician/[facility] ) ) ) Arrival Mode Ambulatory Ambulatory [...] Yes Yes Yes 02/13/23 02/20/23 08:33 08:46 - Today's Visit Information Type of service Follow-up Visit Follow-up Visit (Physician/[facility] (Physician/[facility] ) ) Arrival Mode Ambulatory Ambulatory Transfer [...] Recorded Date Recorded By Document 01/23/23 08:17 [facility] [id number] 01/23/23 08:26 [facility] Document 01/30/23 08:27 [facility] [id number] 01/30/23 08:33 [facility] Document 02/06/23 08:18 [facility] [id number] 02/06/23 08:23 BM Document 02/13/23 08:33 [facility] [id number] 02/13/23 08:40 BMF Document 02/20/23 08:46 MW [id number] 02/20/23 08:49 MW 01/23/23 01/30/23 02/06/23 08:17 [...] (1-33%) Medium (34-66%) Small (1-33%) -Granulation Quality [place] -Slough/Fibrin Yes Yes Yes -Necrosis Amt [...] Present (0 Small (1-33%) %) -Granulation Quality [place] -Slough/Fibrin Yes Yes -Necrosis Amt Large (67-100%) Medium (34-66%) -Necrotic Tissue Type Adherent Slough Adherent Slough -Structure Exposed N/A -Texture (Candace-wound Skin Appearance) Assessed, Assessed, Scarring Excoriation, Scarring -Moisture (Candace-wound Skin Appearance) Assessed Assessed [...] Date Recorded By Document 01/23/23 08:48 MW [id number] 01/23/23 08:50 MW Document 01/30/23 08:46 MW [id number] 01/30/23 08:47 MW Document 02/06/23 08:39 PL [id number] 02/06/23 08:40 PL Document 02/13/23 08:45 MW [id number] 02/13/23 08:52 MW Document 02/20/23 08:49 MW [id number] 02/20/23 08:55 MW 01/23/23 01/30/23 02/06/23 08:48 [...] Recorded Date Recorded By Document 01/23/23 08:56 BMF [id number] 01/23/23 08:57 BMF Document 01/30/23 08:47 MW [id number] 01/30/23 08:48 MW Document 02/06/23 08:41 RB [id number] 02/06/23 08:41 RB Document 02/13/23 08:54 MW [id number] 02/13/23 08:54 MW Document 02/20/23 08:55 MW [id number] 02/20/23 08:56 MW 01/23/23 01/30/23 02/06/23 08:56 [...] misadventure at the time of the procedure 02/20/23904 <Electronically signed by Joya Galvez NP, NP-C> Cosigner Signature (if applicable): CC: ~ Signed [facility] Work Phone: 1(842) 254-646105-24-2023 Progress note Author Joya Galvez [facility] February 13, 2023 11:51am Note Date/Time February 13, 2023 11:51 am [facility] [address] [place] [address] Progress Note - Wound Care 02/13/23 1147 MR#: [id number] Acct: [id number] Name: MY JAMA Rep #:[id number] : 1960 62 From: Joya BUNN PCP: [...] of first interosseous muscles. Coordination / Balance: gihcmy-ns-mwyn test normal Speech: speech abnormal Gait (Neuro): [...] Start: 01/23/23 08:16 Freq: Status: Active Protocol: WC.LOWEXT Activity Type Activity Date Activity User E-sign Co-sign Detail Recorded Client Recorded Date Recorded By Document 01/23/23 08:17 [facility] [id number] 01/23/23 08:26 BM Document 01/30/23 08:27 [facility] [id number] 01/30/23 08:33 [facility] Document 02/06/23 08:18 [facility] [id number] 02/06/23 08:23 BM Document 02/13/23 08:33 [facility] [id number] 02/13/23 08:40 [facility] 01/23/23 01/30/23 02/06/23 08:17 08:27 08:18 - Today's Visit Information Type of service Follow-up Visit Follow-up Visit Follow-up Visit (Physician/[facility] (Physician/[facility] (Physician/[facility] ) ) ) Arrival Mode Ambulatory Ambulatory [...] Pain Free? Yes Yes Yes 02/13/23 08:33 - Today's Visit Information Type of service Follow-up Visit (Physician/[facility] ) Arrival Mode Ambulatory Transfer Assistance None [...] Recorded Date Recorded By Document 01/23/23 08:17 [facility] [id number] 01/23/23 08:26 [facility] Document 01/30/23 08:27 [facility] [id number] 01/30/23 08:33 [facility] Document 02/06/23 08:18 [facility] [id number] 02/06/23 08:23 [facility] Document 02/13/23 08:33 [facility] [id number] 02/13/23 08:40 BMF 01/23/23 01/30/23 02/06/23 08:17 08:27 08:18 Wound [...] (1-33%) Medium (34-66%) Small (1-33%) -Granulation Quality [place] Red -Slough/Fibrin Yes Yes Yes -Necrosis Amt [...] Date Recorded By Document 01/23/23 08:48 MW [id number] 01/23/23 08:50 MW Document 01/30/23 08:46 MW [id number] 01/30/23 08:47 MW Document 02/06/23 08:39 PL [id number] 02/06/23 08:40 PL Document 02/13/23 08:45 MW [id number] 02/13/23 08:52 MW 01/23/23 01/30/23 02/06/23 08:48 [...] Recorded Date Recorded By Document 01/23/23 08:56 [facility] [id number] 01/23/23 08:57 BMF Document 01/30/23 08:47 MW [id number] 01/30/23 08:48 MW Document 02/06/23 08:41 RB [id number] 02/06/23 08:41 RB Document 02/13/23 08:54 MW [id number] 02/13/23 08:54 MW 01/23/23 01/30/23 02/06/23 08:56 [...] 1151 <Electronically signed by Joya Galvez NP MACHINE ROOM ENGINEER-C> Cosigner Signature (if applicable): CC: ~ Signed [facility] Work Phone: 1(750) 200-742005-23-2023 History of Present illness Narrative* Mr. MY JAMA, is a 62 year old male here for a trach change. Last seen 02/12. He continues to be followed at the [place] wound clinic. Continues with Shiley XLT, caps during day. Wound has continued to heal very slowly but is smaller. He comes in today with a new XLT trach for his trach changesince we didn't have one in clinic last month. No other concerns. Overall doing ok. 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 Patient completed adjuvant chemoradiation on 02/06/22. * History: * Dx1: [id number] left neck (unknown primary) 2018 * Dx2: [id number] SCCa of the oral cavity 2020 * [...] lymphadenopathy * 09/12: Oral cavity biopsy at [facility] +SCCa * 10/14: PET FDG avid oral [...] the history, physical exam, discussion and plan. [id number]-[id number] [place] [address] Work Phone: 1(332) 318-674805-17-2023 Progress note Author Joya Galvez [facility] February 06, 2023 8:54am Note Date/Time February 06, 2023 8:54a m [facility] [address] [place] [address] Progress Note - Wound Care 02/06/23 0851 MR#: [id number] Acct: [id number] Name: MY JAMA Rep #:[id number] : 1960 62 From: Joya Galvez NP MACHINE ROOM ENGINEER-C PCP: YARI Pardo Status:REG RCR Location: History [...] of first interosseous muscles. Coordination / Balance: dlcsah-zo-yufq test normal Speech: speech abnormal Gait (Neuro): [...] Start: 01/23/23 08:16 Freq: Status: Active Protocol: DHAVALDimple DoughFRANK Activity Type Activity Date Activity User E-sign Co-sign Detail Recorded Client Recorded Date Recorded By Document 01/23/23 08:17 [facility] [id number] 01/23/23 08:26 [facility] Document 01/30/23 08:27 [facility] [id number] 01/30/23 08:33 [facility] Document 02/06/23 08:18 [facility] [id number] 02/06/23 08:23 [facility] 01/23/23 01/30/23 02/06/23 08:17 08:27 08:18 - Today's Visit Information Type of service Follow-up Visit Follow-up Visit Follow-up Visit (Physician/[facility] (Physician/[facility] (Physician/[facility] ) ) ) Arrival Mode Ambulatory Ambulatory [...] Recorded Date Recorded By Document 01/23/23 08:17 [facility] [id number] 01/23/23 08:26 [facility] Document 01/30/23 08:27 [facility] [id number] 01/30/23 08:33 [facility] Document 02/06/23 08:18 [facility] [id number] 02/06/23 08:23 BM 01/23/23 01/30/23 02/06/23 08:17 08:27 08:18 Wound [...] (1-33%) Medium (34-66%) Small (1-33%) -Granulation Quality [place] Red -Slough/Fibrin Yes Yes Yes -Necrosis Amt [...] Date Recorded By Document 01/23/23 08:48 MW [id number] 01/23/23 08:50 MW Document 01/30/23 08:46 MW [id number] 01/30/23 08:47 MW Document 02/06/23 08:39 PL [id number] 02/06/23 08:40 PL 01/23/23 01/30/23 02/06/23 08:48 [...] Recorded Date Recorded By Document 01/23/23 08:56 [facility] [id number] 01/23/23 08:57 [facility] Document 01/30/23 08:47 MW [id number] 01/30/23 08:48 MW Document 02/06/23 08:41 RB [id number] 02/06/23 08:41 RB 01/23/23 01/30/23 02/06/23 08:56 [...] 0854 <Electronically signed by Joya Galvez NP MACHINE ROOM ENGINEER-C> Cosigner Signature (if applicable): CC: ~ Signed [facility] Work Phone: 1(928) 645-692005-10-2023 Progress note Author Joya Galvez [facility] January 30, 2023 9:56am Note Date/Time January 30, 2023 9:56a m [facility] [address] [place] [address] Progress Note - Wound Care 01/30/2353 MR#: [id number] Acct: [id number] Name: MY JAMA Rep #:[id number] : 1960 62 From: Joya Galvez NP MACHINE ROOM ENGINEER-C PCP: YARI Pardo Status:REG RCR Location: History [...] of first interosseous muscles. Coordination / Balance: dfmren-xg-guwc test normal Speech: speech abnormal Gait (Neuro): [...] Recorded Date Recorded By Document 01/23/23 08:17 [facility] [id number] 01/23/23 08:26 [facility] Document 01/30/23 08:27 [facility] [id number] 01/30/23 08:33 [facility] 01/23/23 01/30/23 08:17 08:27 - Today's Visit Information Type of service Follow-up Visit Follow-up Visit (Physician/[facility] (Physician/[facility] ) ) Arrival Mode Ambulatory Ambulatory Transfer [...] Recorded Date Recorded By Document 01/23/23 08:17 [facility] [id number] 01/23/23 08:26 [facility] Document 01/30/23 08:27 [facility] [id number] 01/30/23 08:33 BMF 01/23/23 01/30/23 08:17 08:27 [...] Amt Small (1-33%) Medium (34-66%) -Granulation Quality [place] -Slough/Fibrin Yes Yes -Necrosis Amt Large (67-100%) [...] Date Recorded By Document 01/23/23 08:48 MW [id number] 01/23/23 08:50 MW Document 01/30/23 08:46 MW [id number] 01/30/23 08:47 MW 01/23/23 01/30/23 08:48 08:46 [...] Recorded Date Recorded By Document 01/23/23 08:56 BMF [id number] 01/23/23 08:57 BM Document 01/30/23 08:47 MW [id number] 01/30/23 08:48 MW 01/23/23 01/30/23 08:56 08:47 [...] 0956 <Electronically signed by Joya Galvez NP MACHINE ROOM ENGINEER-C> Cosigner Signature (if applicable): CC: ~ Signed [facility] Work Phone: 1(882) 133-971705-03-2023 Progress note Author Joya Galvez [facility] January 23, 2023 9:45am Note Date/Time January 23, 2023 9:45am [facility] [address] [place] [address] Progress Note - Wound Care 01/23/23 0942 MR#: [id number] Acct: [id number] Name: MY JAMA Rep #:[id number] : 1960 62 From: Joya Galvez NP MACHINE ROOM ENGINEER-C PCP: YARI Pardo Status:REG RCR Location: History [...] of first interosseous muscles. Coordination / Balance: qfboho-sr-srsy test normal Speech: speech abnormal Gait (Neuro): [...] Recorded Date Recorded By Document 01/23/23 08:17 [facility] [id number] 01/23/23 08:26 [facility] 01/23/23 08:17 - Today's Visit Information Type of service Follow-up Visit (Physician/[facility] ) Arrival Mode Ambulatory Transfer Assistance None [...] Recorded Date Recorded By Document 01/23/23 08:17 [facility] [id number] 01/23/23 08:26 [facility] 01/23/23 08:17 Wound Center Nurse 1 [...] Attached -Granulation Amt Small (1-33%) -Granulation Quality [place] -Slough/Fibrin Yes -Necrosis Amt Large (67-100%) -Necrotic [...] Date Recorded By Document 01/23/23 08:48 MW [id number] 01/23/23 08:50 MW 01/23/23 08:48 Wound Center [...] Recorded Date Recorded By Document 01/23/23 08:56 [facility] [id number] 01/23/23 08:57 BM 01/23/23 08:56 Wound Care Center Nurse 3 [...] 0945 <Electronically signed by Joya Galvez NP MACHINE ROOM ENGINEER-C> Cosigner Signature (if applicable): CC: ~ Signed [facility] Work Phone: 1(848) 946-163404-26-2023 Progress note Author Joya Galvez [facility] January 16, 2023 10:57am Note Date/Time January 16, 2023 10: 43am [facility] [address] [place] [address] Progress Note - Wound Care 01/16/23 1040 MR#: [id number] Acct: [id number] Name: MY JAMA Rep #:[id number] : 1960 62 From: Joya Galvez NP MACHINE ROOM ENGINEER-C PCP: YARI Pardo Status:REG RCR Location: History [...] of first interosseous muscles. Coordination / Balance: irluol-os-zcfb test normal Speech: speech abnormal Gait (Neuro): [...] Date Recorded By Document 12/26/22 08:31 PL [id number] 12/26/22 08:39 PL Document 01/02/23 08:29 JF [id number] 01/02/23 08:33 JF Document 01/09/23 08:38 RB [id number] 01/09/23 08:47 RB Document 01/16/23 08:32 RB [id number] 01/16/23 08:34 RB 12/26/22 01/02/23 01/09/23 08:31 08:29 08:38 - Today's Visit Information Type of service Follow-up Visit Follow-up Visit Follow-up Visit (Physician/[facility] (Physician/[facility] (Physician/[facility] ) ) ) Arrival Mode Ambulatory Ambulatory [...] Visit Information Type of service Follow-up Visit (Physician/[facility] ) Arrival Mode Ambulatory Transfer Assistance None [...] Date Recorded By Document 12/26/22 08:31 PL [id number] 12/26/22 08:39 PL Document 01/02/23 08:29 JF [id number] 01/02/23 08:33 JF Document 01/09/23 08:38 RB [id number] 01/09/23 08:47 RB Document 01/16/23 08:32 RB [id number] 01/16/23 08:34 RB 12/26/22 01/02/23 01/09/23 08:31 [...] (34-66%) Medium (34-66%) Medium (34-66%) -Granulation Quality [place] -Slough/Fibrin Yes Yes Yes -Necrosis Amt Medium [...] Gel Gel Gel Lower Limb Edema Present 01/16/23 08:32 Wound Center Nurse 1 #1 Chin -Combined with other wound No -Current Size (cm) - Length 2.2 -Current Size (cm) - Width 2 -Current Size (cm) - Depth 0.5 -Total Square Cm 4.4 -Photo Taken -Epithelialization -Tunneling No -Undermining/Tunneling No -Circular Undermining No -Exudate Amt Medium -Exudate Type Serosanguineous -Wound Margin Distinct, Outline Attached -Granulation Amt Medium (34-66%) -Granulation Quality [place] -Slough/Fibrin Yes -Necrosis Amt Medium (34-66%) -Necrotic [...] Date Recorded By Document 12/26/22 08:43 MW [id number] 12/26/22 08:45 MW Document 01/02/23 08:47 MW [id number] 01/02/23 08:50 MW Document 01/09/23 08:59 MW [id number] 01/09/23 09:01 MW Document 01/16/23 08:37 MW [id number] 01/16/23 08:40 MW 12/26/22 01/02/23 01/09/23 08:43 [...] Date Recorded By Document 12/26/22 08:49 MW [id number] 12/26/22 08:49 MW Document 01/02/23 08:51 MW [id number] 01/02/23 08:51 MW Document 01/09/23 09:07 MW [id number] 01/09/23 09:08 MW Document 01/16/23 08:40 MW [id number] 01/16/23 08:41 MW 12/26/22 01/02/23 01/09/23 08:49 [...] 1057 <Electronically signed by Joya Galvez NP MACHINE ROOM ENGINEER-C> Cosigner Signature (if applicable): CC: ~ Signed [facility] Work Phone: 1(273) 593-819504-19-2023 Progress note Author Joya Galvez [facility] January 09, 2023 9:35am Note Date/Time January 09, 2023 9:3 5am [facility] [address] [place] [address] Progress Note - Wound Care 01/09/23931 MR#: [id number] Acct: [id number] Name: MY JAMA Rep #:[id number] : 1960 62 From: Joya Galvez NP MACHINE ROOM ENGINEER-C PCP: YARI Pardo Status:REG RCR Location: History [...] with results Objective Data Objective Data Wound Tabriz easily bleeds easily the right side of [...] of first interosseous muscles. Coordination / Balance: tpcbgx-yp-otix test normal Speech: speech abnormal Gait (Neuro): [...] Date Recorded By Document 12/26/22 08:31 PL [id number] 12/26/22 08:39 PL Document 01/02/23 08:29 JF [id number] 01/02/23 08:33 JF Document 01/09/23 08:38 RB [id number] 01/09/23 08:47 RB 12/26/22 01/02/23 01/09/23 08:31 08:29 08:38 - Today's Visit Information Type of service Follow-up Visit Follow-up Visit Follow-up Visit (Physician/[facility] (Physician/[facility] (Physician/[facility] ) ) ) Arrival Mode Ambulatory Ambulatory [...] Date Recorded By Document 12/26/22 08:31 PL [id number] 12/26/22 08:39 PL Document 01/02/23 08:29 JF [id number] 01/02/23 08:33 JF Document 01/09/23 08:38 RB [id number] 01/09/23 08:47 RB 12/26/22 01/02/23 01/09/23 08:31 [...] (34-66%) Medium (34-66%) Medium (34-66%) -Granulation Quality [place] -Slough/Fibrin Yes Yes Yes -Necrosis Amt Medium [...] Date Recorded By Document 12/26/22 08:43 MW [id number] 12/26/22 08:45 MW Document 01/02/23 08:47 MW [id number] 01/02/23 08:50 MW Document 01/09/23 08:59 MW [id number] 01/09/23 09:01 MW 12/26/22 01/02/23 01/09/23 08:43 [...] Date Recorded By Document 12/26/22 08:49 MW [id number] 12/26/22 08:49 MW Document 01/02/23 08:51 MW [id number] 01/02/23 08:51 MW Document 01/09/23 09:07 MW [id number] 01/09/23 09:08 MW 12/26/22 01/02/23 01/09/23 08:49 [...] misadventure at the time of the procedure 04/19/23 0935 <Electronically signed by Joya Galvez NP, NP-C> Cosigner Signature (if applicable): CC: ~ Signed [facility] Work Phone: 1(609) 331-906404-12-2023 Progress note Author Joya Galvez [facility] January 02, 2023 12:07pm Note Date/Time January 02, 2023 12: 07pm [facility] [address] [place] [address] Progress Note - Wound Care 01/02/23 1205 MR#: [id number] Acct: [id number] Name: MY JAMA Rep #:[id number] : 1960 62 From: Joya BUNN PCP: [...] of first interosseous muscles. Coordination / Balance: iqmgla-tu-qxec test normal Speech: speech abnormal Gait (Neuro): [...] Date Recorded By Document 12/26/22 08:31 PL [id number] 12/26/22 08:39 PL Document 01/02/23 08:29 DEVIN [id number] 01/02/23 08:33 JF 12/26/22 01/02/23 08:31 08:29 - Today's Visit Information Type of service Follow-up Visit Follow-up Visit (Physician/[facility] (Physician/[facility] ) ) Arrival Mode Ambulatory Ambulatory Transfer [...] Date Recorded By Document 12/26/22 08:31 PL [id number] 12/26/22 08:39 PL Document 01/02/23 08:29 JF [id number] 01/02/23 08:33 JF 12/26/22 01/02/23 08:31 08:29 [...] Amt Medium (34-66%) Medium (34-66%) -Granulation Quality [place] -Slough/Fibrin Yes Yes -Necrosis Amt Medium (34-66%) [...] Date Recorded By Document 12/26/22 08:43 MW [id number] 12/26/22 08:45 MW Document 01/02/23 08:47 MW [id number] 01/02/23 08:50 MW 12/26/22 01/02/23 08:43 08:47 [...] Date Recorded By Document 12/26/22 08:49 MW [id number] 12/26/22 08:49 MW Document 01/02/23 08:51 MW [id number] 01/02/23 08:51 MW 12/26/22 01/02/23 08:49 08:51 [...] 1207 <Electronically signed by Joya Galvez NP MACHINE ROOM ENGINEER-C> Cosigner Signature (if applicable): CC: ~ Signed [facility] Work Phone: 1(860) 214-513304-05-2023 Progress note Author Joya Galvez [facility] December 26, 2022 8:50am Note Date/Time December 26, 2022 8:50 am [facility] [address] [place] [address] Progress Note - Wound Care 12/26/22 0847 MR#: [id number] Acct: [id number] Name: MY JAAM Rep #:[id number] : 1960 62 From: Joya Galvez NP MACHINE ROOM ENGINEER-C PCP: YARI Pardo Status:REG RCR Location: History [...] of first interosseous muscles. Coordination / Balance: nqrcqa-eg-orcp test normal Speech: speech abnormal Gait (Neuro): [...] Date Recorded By Document 12/26/22 08:31 PL [id number] 12/26/22 08:39 PL 12/26/22 08:31 - Today's Visit Information Type of service Follow-up Visit (Physician/[facility] ) Arrival Mode Ambulatory Transfer Assistance None [...] Date Recorded By Document 12/26/22 08:31 PL [id number] 12/26/22 08:39 PL 12/26/22 08:31 Wound Center Nurse 1 #1 Chin -Combined with other wound No -Current Size (cm) - Length 2.0 -Current Size (cm) - Width 3.0 -Current Size (cm) - Depth 0.2 -Total Square Cm 6.00 -Photo Taken No -Epithelialization Medium 34-66% -Exudate Amt Medium -Exudate Type Serosanguineous -Granulation Amt Medium (34-66%) -Granulation Quality [place] -Slough/Fibrin Yes -Necrosis Amt Medium (34-66%) -Necrotic [...] Date Recorded By Document 12/26/22 08:43 MW [id number] 12/26/22 08:45 MW 12/26/22 08:43 Wound Center [...] 0850 <Electronically signed by Joya Galvez NP MACHINE ROOM ENGINEER-C> Cosigner Signature (if applicable): CC: ~ Signed [facility] Work Phone: 1(707) 209-131703-22-2023 Progress note Author Joya Galvez [facility] December 12, 2022 11:57am Note Date/Time December 12, 2022 11: 57am [facility] [address] [place] [address] Progress Note - Wound Care 12/12/22 1155 MR#: [id number] Acct: [id number] Name: MY JAMA Rep #:[id number] : 1960 62 From: Joya Galvez NP MACHINE ROOM ENGINEER-C PCP: YARI Pardo Status:REG RCR Location: History [...] of first interosseous muscles. Coordination / Balance: qjkazf-kv-pzas test normal Speech: speech abnormal Gait (Neuro): [...] Recorded Date Recorded By Document 11/28/22 08:23 [facility] [id number] 11/28/22 08:25 BM Document 12/05/22 08:22 [facility] [id number] 12/05/22 08:27 BM Document 12/12/22 08:52 AK [id number] 12/12/22 08:55 AK 11/28/22 12/05/22 12/12/22 08:23 08:22 08:52 - Today's Visit Information Type of service Follow-up Visit Follow-up Visit Follow-up Visit (Physician/[facility] (Physician/[facility] (Physician/[facility] ) ) ) Arrival Mode Ambulatory Ambulatory [...] Recorded Date Recorded By Document 11/28/22 08:23 [facility] [id number] 11/28/22 08:25 BM Document 12/05/22 08:22 BM [id number] 12/05/22 08:27 BM Document 12/12/22 08:52 AK [id number] 12/12/22 08:55 AK 11/28/22 12/05/22 12/12/22 08:23 [...] Date Recorded By Document 11/28/22 11:23 PL [id number] 11/28/22 11:23 PL Document 12/05/22 08:45 MW [id number] 12/05/22 08:48 MW Document 12/12/22 08:56 MW [id number] 12/12/22 09:00 MW 11/28/22 12/05/22 12/12/22 11:23 [...] Recorded Date Recorded By Document 11/28/22 08:49 [facility] [id number] 11/28/22 08:49 [facility] Document 12/05/22 08:53 [facility] [id number] 12/05/22 08:54 BM Document 12/12/22 09:20 AK [id number] 12/12/22 09:21 AK 11/28/22 12/05/22 12/12/22 08:49 [...] Patient Pain Free? Yes Yes Yes - Visit Discharge Discharge Condition [...] at the time of the procedure 12/12/22 1157 <Electronically signed by Joya Galvez NP MACHINE ROOM ENGINEER-C> Cosigner Signature (if applicable): CC: ~ Signed [facility] Work Phone: 1(956) [phone] Progress note Author Joya Galvez [facility] December 05, 2022 10:21am Note Date/Time December 05, 2022 10: 21am [facility] [address] [place] [address] Progress Note - Wound Care 12/05/22 1018 MR#: [id number] Acct: [id number] Name: MY JAMA Rep #:[id number] : 1960 62 From: Joya Galvez NP MACHINE ROOM ENGINEER-C PCP: YARI Pardo Status:REG RCR Location: History [...] of first interosseous muscles. Coordination / Balance: yidipk-bc-ncdg test normal Speech: speech abnormal Gait (Neuro): [...] Recorded Date Recorded By Document 11/28/22 08:23 [facility] [id number] 11/28/22 08:25 [facility] Document 12/05/22 08:22 [facility] [id number] 12/05/22 08:27 [facility] 11/28/22 12/05/22 08:23 08:22 - Today's Visit Information Type of service Follow-up Visit Follow-up Visit (Physician/[facility] (Physician/[facility] ) ) Arrival Mode Ambulatory Ambulatory Transfer [...] Recorded Date Recorded By Document 11/28/22 08:23 [facility] [id number] 11/28/22 08:25 BM Document 12/05/22 08:22 [facility] [id number] 12/05/22 08:27 [facility] 11/28/22 12/05/22 08:23 08:22 Wound Center Nurse [...] Date Recorded By Document 11/28/22 11:23 PL [id number] 11/28/22 11:23 PL Document 12/05/22 08:45 MW [id number] 12/05/22 08:48 MW 11/28/22 12/05/22 11:23 08:45 [...] Recorded Date Recorded By Document 11/28/22 08:49 [facility] [id number] 11/28/22 08:49 [facility] Document 12/05/22 08:53 [facility] [id number] 12/05/22 08:54 [facility] 11/28/22 12/05/22 08:49 08:53 Wound Care [...] 1021 <Electronically signed by Joya Galvez NP MACHINE ROOM ENGINEER-C> Cosigner Signature (if applicable): CC: ~ Signed [facility] Work Phone: 1(248) 625-909103-08-2023 Progress note Author Joya Galvez [facility] November 28, 2022 10:58am Note Date/Time November 28, 2022 10:5 8am [facility] [address] [place] [address] Progress Note - Wound Care 11/28/22 1051 MR#: [id number] Acct: [id number] Name: MY JAMA Rep #:[id number] : 1960 62 From: Joya Galvez NP, [...] 18 115/56 L Room Air 11/28/22 08:23 03 08:23 11/28/22 08:23 11/28/22 08:23 11/28/22 08:23 [...] of first interosseous muscles. Coordination / Balance: nsvmnw-sz-zmpz test normal Speech: speech abnormal Gait (Neuro): [...] Recorded Date Recorded By Document 11/28/22 08:23 [facility] [id number] 11/28/22 08:25 [facility] 11/28/22 08:23 WC - Today's Visit Information Type of service Follow-up Visit (Physician/[facility] ) Arrival Mode Ambulatory Transfer Assistance None [...] Recorded Date Recorded By Document 11/28/22 08:23 [facility] [id number] 11/28/22 08:25 [facility] 11/28/22 08:23 Wound Center Nurse 1 [...] Recorded Date Recorded By Document 11/28/22 08:49 [facility] [id number] 11/28/22 08:49 [facility] 11/28/22 08:49 Wound Care Center Nurse [...] 11/28/22 1058 <Electronically signed by Joya Galvez NP, NP-C> Cosigner Signature (if applicable): CC: ~ Signed [facility] Work Phone: 1(436) 504-452202-22-2023 Progress note Author Joya Galvez [facility] November 14, 2022 12:06pm Note Date/Time November 14, 2022 12:06pm [facility] [address] [place] [address] Progress Note - Wound Care 11/14/22 1202 MR#: [id number] Acct: [id number] Name: MY JAMA Rep #:[id number] : 1960 62 From: Joya Galvez NP, [...] Date Recorded By Document 10/24/22 08:23 SHANTELL [id number] 10/24/22 08:25 AK Document 11/07/22 08:27 AK Desktop 11/07/22 08:28 AK Document 11/14/22 08:59 NE [id number] 11/14/22 09:00 AK 10/24/22 11/07/22 11/14/22 08:23 08:27 08:59 - Today's Visit Information Type of service Follow-up Visit Follow-up Visit Follow-up Visit (Physician/[facility] (Physician/[facility] (Physician/[facility] ) ) ) Arrival Mode Ambulatory Ambulatory [...] Date Recorded By Document 10/24/22 08:23 AK [id number] 10/24/22 08:25 AK Document 11/07/22 08:27 AK Desktop 11/07/22 08:28 AK Document 11/14/22 08:59 AK [id number] 11/14/22 09:00 AK 10/24/22 11/07/22 11/14/22 08:23 [...] (1-33%) Small (1-33%) Small (1-33%) -Granulation Quality [place] -Slough/Fibrin Yes Yes Yes -Necrosis Amt Large [...] Date Recorded By Document 10/24/22 09:02 MW [id number] 10/24/22 09:04 MW Document 11/07/22 08:44 MW [id number] 11/07/22 08:46 MW Document 11/14/22 08:52 MW [id number] 11/14/22 08:53 MW 10/24/22 11/07/22 11/14/22 09:02 [...] Recorded Date Recorded By Document 10/24/22 10:43 [facility] [id number] 10/24/22 10:44 [facility] Document 11/07/22 08:52 ML [id number] 11/07/22 08:55 ML Document 11/14/22 09:05 [facility] [id number] 11/14/22 09:05 BMF 10/24/22 11/07/22 11/14/22 10:43 08:52 09:05 Wound [...] 11/14/22 1206 <Electronically signed by Joya Galvez NP MACHINE ROOM ENGINEER-C> Cosigner Signature (if applicable): CC: ~ Signed [facility] Work Phone: 1(774) 275-562302-15-2023 Progress note Author Joya Galvez [facility] November 07, 2022 9:38am Note Date/Time November 07, 2022 9:22am [facility] [address] [place] [address] Progress Note - Wound Care 11/07/22 0920 MR#: [id number] Acct: [id number] Name: MY JAMA Rep #:[id number] : 1960 62 From: Joya HOODC PCP: [...] H 11/07/22 08:27 11/07/22 08:27 10/24/22 00:23 11/07/22 08:27 Weight: 130 lb Body Mass Index [...] Recorded Date Recorded By Document 10/24/22 08:23 NE [id number] 10/24/22 08:25 AK Document 11/07/22 08:27 AK Desktop 11/07/22 08:28 AK 10/24/22 11/07/22 08:23 08:27 - Today's Visit Information Type of service Follow-up Visit Follow-up Visit (Physician/[facility] (Physician/[facility] ) ) Arrival Mode Ambulatory Ambulatory Patient [...] Date Recorded By Document 10/24/22 08:23 AK [id number] 10/24/22 08:25 AK Document 11/07/22 08:27 AK Desktop 11/07/22 08:28 AK 10/24/22 11/07/22 08:23 08:27 Wound Center Nurse [...] Amt Small (1-33%) Small (1-33%) -Granulation Quality [place]/Fibrin Yes Yes -Necrosis Amt Large (67-100%) [...] Used 4% Lidocaine 4% Lidocaine Solution Solution - Nurse 2 - General Ulcer CM Notes Start: 10/24/22 08:18 Freq: Status: Active Protocol: Activity Type Activity Date Activity User E-sign Co-sign Detail Recorded Client Recorded Date Recorded By Document 10/24/22 09:02 MW [id number] 10/24/22 09:04 MW Document 11/07/22 08:44 MW [id number] 11/07/22 08:46 MW 10/24/22 11/07/22 09:02 08:44 [...] Recorded Date Recorded By Document 10/24/22 10:43 [facility] [id number] 10/24/22 10:44 [facility] Document 11/07/22 08:52 ML [id number] 11/07/22 08:55 ML 10/24/22 11/07/22 10:43 08:52 [...] Patient Pain Free? Yes Yes WC - Visit Discharge Discharge [...] procedure 11/07/22 0938 <Electronically signed by Joya Galvez NP MACHINE ROOM ENGINEER-C> Cosigner Signature (if applicable): CC: ~ Signed [facility] Work Phone: [phone]) 116-197602-01-2023 Progress note Author Joya Galvez [facility] October 24, 2022 11:45am Note Date/Time October 24, 2022 1 1:09am [facility] [address] [place] [address] Progress Note - Wound Care 10/24/22 1106 MR#: [id number] Acct: [id number] Name: MY JAMA Rep #:[id number] : 1960 62 From: Joya Galvez NP MACHINE ROOM ENGINEER-C PCP: YARI Pardo Status:REG RCR Location: WC ADDENDUM by YARI Galvez on 10/24/22 at [...] cancer: 10/24/22 1145<Electronically signed by Joya Galvez NP MACHINE ROOM ENGINEER-C> Cosigner Signature (if applicable): cc: ~* Signed [...] Date Recorded By Document 10/24/22 08:23 AK [id number] 10/24/22 08:25 NE 10/24/22 08:23 - Today's Visit Information Type of service Follow-up Visit (Physician/[facility] ) Arrival Mode Ambulatory Patient Identification Verified [...] Recorded Date Recorded By Document 10/24/22 08:23 NE [id number] 10/24/22 08:25 NE 10/24/22 08:23 Wound Center Nurse 1 #1 [...] Attached -Granulation Amt Small (1-33%) -Granulation [place] -Slough/Fibrin Yes -Necrosis Amt Large (67-100%) -Necrotic [...] Cleansing No -Anesthetic Used 4% Lidocaine Solution DHAVAL - Nurse 2 - General Ulcer CM Notes Start: 10/24/22 08:18 Freq: Status: Active Protocol: Activity Type Activity Date Activity User E-sign Co-sign Detail Recorded Client Recorded Date Recorded By Document 10/24/22 09:02 MW [id number] 10/24/22 09:04 MW 10/24/22 09:02 Wound Center [...] Recorded Date Recorded By Document 10/24/22 10:43 [facility] [id number] 10/24/22 10:44 [facility] 10/24/22 10:43 Wound Care Center Nurse [...] 1109 <Electronically signed by Joya Galvez NP MACHINE ROOM ENGINEER-C> Cosigner Signature (if applicable): CC: ~ Signed [facility] Work Phone: 1(330) 665-341901-18-2023 Progress note Author Joya Galvez [facility] October 10, 2022 10:10am Note Date/Time October 10, 2022 1 0:10am [facility] [address] [place] [address] Progress Note - Wound Care 10/10/22 1006 MR#: [id number] Acct: [id number] Name: MY JAMA Rep #:[id number] : 1960 62 From: Joya Galvez NP MACHINE ROOM ENGINEER-C PCP: YARI Pardo Status:REG RCR Location: History [...] on cultures for MRSA we will continue Kathy seems to be doing well with that [...] Start: 10/03/22 08:22 Freq: Status: Active Protocol: DHAVALDimple DoughFRANK Activity Type Activity Date Activity User E-sign Co-sign Detail Recorded Client Recorded Date Recorded By Document 10/03/22 08:22 [facility] [id number] 10/03/22 08:25 [facility] Document 10/10/22 08:29 [facility] [id number] 10/10/22 08:32 [facility] 10/03/22 10/10/22 08:22 08:29 - Today's Visit Information Type of service Follow-up Visit Follow-up Visit (Physician/[facility] (Physician/[facility] ) ) Arrival Mode Ambulatory Ambulatory Transfer [...] Recorded Date Recorded By Document 10/03/22 08:22 [facility] [id number] 10/03/22 08:25 BM Document 10/10/22 08:29 [facility] [id number] 10/10/22 08:32 BMF 10/03/22 10/10/22 08:22 08:29 [...] Used 5% Lidocaine 5% Lidocaine Gel Gel - Nurse 2 - General Ulcer CM Notes Start: 10/03/22 08:22 Freq: Status: Active Protocol: Activity Type Activity Date Activity User E-sign Co-sign Detail Recorded Client Recorded Date Recorded By Document 10/03/22 08:32 MW [id number] 10/03/22 08:37 MW Document 10/10/22 08:39 MW [id number] 10/10/22 08:42 MW 10/03/22 10/10/22 08:32 08:39 [...] Recorded Date Recorded By Document 10/03/22 08:43 [facility] [id number] 10/03/22 08:43 BM Document 10/10/22 08:47 AK [id number] 10/10/22 08:48 [place] 10/03/22 10/10/22 08:43 08:47 Wound Care Nurse [...] Patient Pain Free? Yes Yes WC - Visit Discharge Discharge [...] 1010 <Electronically signed by Joya Galvez NP MACHINE ROOM ENGINEER-C> Cosigner Signature (if applicable): CC: ~ Signed [facility] Work Phone: 1(230) 503-843101-11-2023 Progress note Author Joya Galvez [facility] October 03, 2022 10:35am Note Date/Time October 03, 2022 1 0:35am [facility] [address] [place] [address] Progress Note - Wound Care 10/03/22 1032 MR#: [id number] Acct: [id number] Name: MY JAMA Rep #:[id number] : 1960 62 From: Joya Galvez NP MACHINE ROOM ENGINEER-C PCP: YARI Pardo Status:REG RCR Location: History [...] Start: 10/03/22 08:22 Freq: Status: Active Protocol: DHAVAL.LOWFRANK Activity Type Activity Date Activity User E-sign Co-sign Detail Recorded Client Recorded Date Recorded By Document 10/03/22 08:22 [facility] [id number] 10/03/22 08:25 [facility] 10/03/22 08:22 - Today's Visit Information Type of service Follow-up Visit (Physician/[facility] [employer] ) Arrival Mode Ambulatory Transfer Assistance None [...] Recorded Date Recorded By Document 10/03/22 08:22 [facility] [id number] 10/03/22 08:25 [facility] 10/03/22 08:22 Wound Center Nurse 1 #1 [...] Date Recorded By Document 10/03/22 08:32 MW [id number] 10/03/22 08:37 MW 10/03/22 08:32 Wound Center [...] Recorded Date Recorded By Document 10/03/22 08:43 [facility] [id number] 10/03/22 08:43 [facility] 10/03/22 08:43 Wound Care Nurse 3 [...] 10/03/22 1035 <Electronically signed by Joya Galvez NP, NP-C> Cosigner Signature (if applicable): CC: ~ Signed [facility] Work Phone: 1(852) 683-285707-25-2022 History of Present illness Narrative* Mr. MY JAMA, is a 61 year old male here for a followup regarding his open anterior chin wound. Last seen 04/16/22. He has been referred to the wound clinic at [place]. He goes once a week and they deride the wound. He has his trach capped today. He is currently on Levaquin for 14 days. He hasbeen seen by [facility] [employer] [facility] and is advancing his diet. He is [...] script. 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 Patient completed adjuvant chemoradiation on 02/06/22. * History: * Dx1: YtF4tV8 left neck (unknown primary) 2018 * Dx2: T9G4bG8 SCCa of the oral cavity 2020 * [...] lymphadenopathy * 09/12: Oral cavity biopsy at [facility] +SCCa * 10/14: PET FDG avid oral [...] the history, physical exam, discussion and plan. GX-Nyvrwueojszdww-Ybgow Work Phone: 1(118) 340-559307-25-2022 History of Present illness Narrative* Mr. MY JAMA, is a 61 year old male here for a followup regarding his open anterior chin wound. Last seen 04/16/22. He has been referred to the wound clinic at [place]. He goes once a week and they deride the wound. He has his trach capped today. He is currently on Levaquin for 14 days. He hasbeen seen by [facility] [employer]PERATOR and is advancing his diet. He is 3 months out from his cancer treatment. He is duefor his 3 month post treatment now. He is being seen by his med onc next week. He has been referredto pain clinic but doesn't have a date for his appointment yet. He is out of pain meds. Dr. Alvarezve him the last script. 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 Patient completed adjuvant chemoradiation on 02/06/22. * History: * Dx1: AeI1kF2 left neck (unknown primary) 2018 * Dx2: M5Z2fY9 SCCa of the oral cavity 2020 * [...] lymphadenopathy * 09/12: Oral cavity biopsy at [facility] +SCCa * 10/14: PET FDG avid oral [...] the history, physical exam, discussion and plan. TG-Oxengbpuxvdnun-Fubxb Work Phone: 1([phone]) 965-883907-11-2022 History of Present illness Narrative* Mr. MY [...] been referred to the wound clinic at [place]. He is seeing the wound care clinic next week. He has his trach capped today. He had an MBS w/ speech. 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 Patient completed adjuvant chemoradiation on 02/06/22. * History: * Dx1: CrN8tQ8 left neck (unknown primary) 2018 * Dx2: Z3P2dH9 SCCa of the oral cavity 2020 * [...] lymphadenopathy * 09/12: Oral cavity biopsy at [facility] +SCCa * 10/14: PET FDG avid oral [...] the history, physical exam, discussion and plan. WT-Ftawbrnwgiaxul-Iyayp Work Phone: 1(994) 332-994702-15-2022 History of Present illness Narrative* Mr. MY [...] Recommendation is for * History: * Dx1: WdP9aU0 left neck (unknown primary) 2018 * Dx2: [...] lymphadenopathy * 09/12: Oral cavity biopsy at [facility] +SCCa * 10/14: PET FDG avid oral [...] the history, physical exam, discussion and plan. IM-Xusbcpildwnszq-Uvuhddm Work Phone: 1([phone]) 121-946002-15-2022 History of Present illness Narrative* Mr. MY [...] reports he has had the trach capped 24/7 for the past few days. Patient [facility]. He is currently on Bactrim for leg cellulitis. He has been seen by Dr. Sellers for adjuvant radiation. * History: * Dx1: CtF0wC8 left neck (unknown primary) 2018 * Dx2: [...] lymphadenopathy * 09/12: Oral cavity biopsy at [facility] +SCCa * 10/14: PET FDG avid oral cavity mass w/bone involvement SUV12, no lymphadenopathy or distant metastasis * 11/07/21: S/p triple, trach, PEG, composite resection, excision of skin and soft tissue, segmental mandibulectomy, right neck dissection, left neck exploration for vessels, reconstruction with left ALT and left fibular free flap on 11/07/21. Path + 6.5cm SCCa, 12/11 lymph nodes + * 11/24/21: Tumor board [...] the history, physical exam, discussion and plan. MW-Jgnuwtuqyskrvg-Bdule Work Phone: 1([phone]) 276-369702-15-2022 History of Present illness Narrative* Mr. MY [...] his speaking valve. * History: * Dx1: YwZ7iF3 left neck (unknown primary) 2018 * Dx2: B3U1zU7 SCCa of the oral cavity 2020 * [...] lymphadenopathy * 09/12: Oral cavity biopsy at [facility] +SCCa * 10/14: PET FDG avid oral [...] the history, physical exam, discussion and plan. MJ-Rhkhhwkewtzzmy-Qpimv [facility] [address] Work Phone: 1([phone]) [phone] History of Present illness Narrative* Mr. MY JAMA, is a 61 year old male here for a third post op visit for his V6A3pP1 oral cavity SCCa with chin involvement s/p [...] ENT complaints today. * History: * Dx1: BhN8mP6 left neck (unknown primary) 2018 * Dx2: P3Y0oP3 SCCa of the oral cavity 2020 * [...] lymphadenopathy * 09/12: Oral cavity biopsy at [facility] +SCCa * 10/14: PET FDG avid oral [...] the history, physical exam, discussion and plan. TL-Ppariqqyvscjqn-Ienof Work Phone: 1([phone]) [phone] History of Present illness Narrative* Mr. MY JAMA, is a 61 year old male here for a third post op visit for his P2V1nW6 oral cavity SCCa with chin involvement s/p [...] chemoradiation therapy daily. * History: * Dx1: ZxF1fG7 left neck (unknown primary) 2018 * Dx2: Q7V8fA7 SCCa of the oral cavity 2020 * [...] lymphadenopathy * 09/12: Oral cavity biopsy at [facility] +SCCa * 10/14: PET FDG avid oral [...] the history, physical exam, discussion and plan. CX-Eswxfniaxeicqj-Mxsyz [place] [address] Work Phone: 1([phone] 242-881802-15-2022 History of Present illness Narrative* Mr. MY JAMA, is a 61 year old male here for a cancer follow up. He has a history of A0W9tB1 oral cavity SCCa with chin involvement s/p [...] this. He is currently getting chemoradiation in [place]. He has 3 more weeks left. * History: * Dx1: DdB1zF6 left neck (unknown primary) 2018 * Dx2: V8A8aT5 SCCa of the oral cavity 2020 * [...] lymphadenopathy * 09/12: Oral cavity biopsy at [facility] +SCCa * 10/14: PET FDG avid oral [...] the history, physical exam, discussion and plan. ZI-Dkgxbrmvouuteg-Immsj Work Phone: 1([phone]) 361-480602-15-2022 History of Present illness Narrative* Mr. MY JAMA, is a 61 year old male here for a cancer follow up. 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 He is currently getting chemoradiation in [place]. He has 3 more weeks left with 2 more chemo treatments. He is tolerating daily therapy. He is coughing up more blood clots recently. Daughters report he is always cold and sits by an electric heater all day. 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 WV-Tfdtiprxyombnx-Equwb [place] [address] Work Phone: [phone]) 518-695702-15-2022 History of Present illness Narrative* Mr. MY JAMA, is a 61 year old male here for a cancer follow up. 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 VR-Nlotrtorhyenbg-Dalrr Work Phone: [phone] History of Present illness Narrative* Mr. MY JAMA, is a 61 year old male here for a cancer follow up. He has a history of S0T1kR1 oral cavity SCCa with chin involvement s/p [...] capping the trach * History: * Dx1: WsY4oS2 left neck (unknown primary) 2018 * Dx2: V7V0nL5 SCCa of the oral cavity 2020 * [...] lymphadenopathy * 09/12: Oral cavity biopsy at [facility] +SCCa * 10/14: PET FDG avid oral [...] the history, physical exam, discussion and plan. XJ-Nolydiegfcejbm-Jvynu [place] [address] Work Phone: 1(142) 523-219802-01-2022 History of Present illness NarrativeThis gentleman is a patient of one of my partners. He was first treated back in 2018 for metastaticdisease to his left neck from [...] face. There is no obvious of metastatic disease.DD-Jnlbacgkxjlkfg-Yqglwxux Work Phone: 1([phone] NoteHNO ID: [id number] Author: Laurita Mabry MD Service: ? Author Type: Physician Type: Progress Notes Filed: 10/03/2021 2:06 PM Note Text: I called the patient on the phone number on his [employer] account and went to voicemail. I left voicemail for him to call me back and I left him my cell phone number. Laurita Mabry, [facility]01-10-2022 NoteHNO ID: [id number] Author: Jesika Pichardo MD Service: ? Author Type: Physician Type: Progress Notes Filed: 10/02/2021 3:45 PM Note Text: DELANEY Jama is a 61 year old male [...] referring physician via mail or electronic medical record.[facility]01-06-2022 NoteHNO ID: [id number] Author: Laurita Mabry MD Service: ? Author [...] cauterized using silver nitrat (more content not included)...[facility]09-01-2019 History of Present illness Narrative* Mr. MY [...] to ETD. Patient seen by ENT at [facility] and had PE tubes placed. Patient was noted to have a lesion in the oral cavity near dental extraction site. Punch biopsy was obtained and path + SCCa. Patient seen by his radiation oncologist, Dr. Sellers. Patient had a PET scan on 10/11/21. I do have access to the report, but not theimages. * Patient with a history of OcZ1pZ7 left neck (unknown primary) head and neck [...] the history, physical exam, discussion and plan. ZZ-Lapopssqdutixk-Ibwqt Work Phone: 1([phone]) 272-181809-01-2019 History of Present illness Narrative* Mr. MY [...] to ETD. Patient seen by ENT at [facility] and had PE tubes placed. Patient was noted to have a lesion in the oral cavity near dental extraction site. Punch biopsy was obtained and path + SCCa. Patient seen by his radiation oncologist, Dr. Sellers. Patient had a PET scan on 10/11/21. I do have access to the report, but not theimages. * Patient with a history of HsY5nJ1 left neck (unknown primary) head and neck [...] the history, physical exam, discussion and plan. KF-Ujszultnkcjngw-Xckml [place] [address] Work Phone: 1([phone]) 440-901309-01-2019 History of Present illness Narrative* Mr. MY [...] to ETD. Patient seen by ENT at [facility] and had PE tubes placed. Patient was noted to have a lesion in the oral cavity near dental extraction site. Punch biopsy was obtained and path + SCCa. Patient seen by his radiation oncologist, Dr. Sellers. Patient had a PET scan on 10/11/21. I do have access to the report, but not theimages. * Patient with a history of DlB7eE7 left neck (unknown primary) head and neck [...] the history, physical exam, discussion and plan. ZT-Sgsnbehjadpemw-Vsjoqex Work Phone: [phone]) [phone] History of Present illness Narrative* Mr. MY JAMA, is a 61 year old male here today for a newly diagnosed SCCa of the oral cavity.Patient last seen by me 05/2019. At that time he was seen in follow up of his KtZ7jV5 unknown primary left neck for which he had received chemoradiation therapy. Patient has been lost to follow up. Patient seen by his dentist in August 2021 and had a tooth removed. Patient was thought to have early ORN following the dental extraction. Patient was started on HBO treatments, but could not toleratethem due to ETD. Patient seen by ENT at [facility] and had PE tubes placed. Patient was [...] overlying his chin. * History: * Dx1: SsP2xM5 left neck (unknown primary) 2018 * Dx2: [...] lymphadenopathy * 09/12: Oral cavity biopsy at [facility] +SCCa * 10/14: PET FDG avid oral [...] the history, physical exam, discussion and plan. OO-Rwlaatctjznuit-Tuigj [facility] [address] Work Phone: Chief complaint Narrative - ReportedConsultation for some help in the management of an oral cavity qjocbwPL-Zausjdnamhupcn-Dakwpajy Work Phone: chief complaint+Reason for visit Narrative* [...] metastasis present Anemia Cancer related pain Dehydration [facility] Work Phone: Chief complaint+Reason for visit Narrative* [...] metastasis present Anemia Cancer related pain Dehydration [facility] Work Phone: Chief complaint+Reason for visit Narrative* [...] metastasis present Anemia Cancer related pain Dehydration [facility] Work Phone: Chief complaint+Reason for visit Narrative* [...] metastasis present Anemia Cancer related pain Dehydration [facility] Work Phone: Chief complaint+Reason for visit Narrative* [...] carcinoma Floor of mouth squamous cell carcinoma [facility] Work Phone: Chief complaint+Reason for visit Narrative* [...] Nonhealing surgical wound Head and neck cancer [facility] Work Phone: Chief complaint+Reason for visit Narrative* [...] Soft tissue radionecrosis Head and neck cancer [facility] Work Phone: Evaluation note* Constitutional: Awake/alert/oriented x3, [...] nerves grossly intactPsychological: Appropriate mood and behavior 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 Head and neck cancer chronic Lung nodules chronic 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 Head and neck cancer chronic Lung nodules chronic Regional lymph node metastasis present chronic Anemia resolved Cancer related pain resolved Dehydration resolved [facility] Work Phone: Evaluation note* Diagnosis Onset Date [...] resolved Cancer related pain resolved Dehydration resolved [facility] Work Phone: evaluation note* Diagnosis Onset Date Resolution Status Squamous [...] resolved Cancer related pain resolved Dehydration resolved [facility] Work Phone: Evaluation note* Diagnosis Onset Date [...] resolved Cancer related pain resolved Dehydration resolved [facility] Work Phone: Evaluation note* Diagnosis Onset Date [...] 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 [facility] Work Phone: Evaluation note* Diagnosis Onset Date [...] 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 [facility] Work Phone: Evaluation note* Diagnosis Onset Date [...] and neck cancer chronic Lung nodules chronic [facility] Work Phone: Evaluation note* Diagnosis Onset Date [...] wound healing acute Nonhealing surgical wound ac ruby Head and neck cancer chronic [facility] Work Phone: Evaluation note* Diagnosis Onset Date [...] wound healing acute Nonhealing surgical wound ac ruby Head and neck cancer chronic Delayed surgical wound healing acute Nonhealing surgical wound ac ruby Soft tissue radionecrosis ac ruby Head and neck cancer chronic [facility] Work Phone: Evaluation note* Diagnosis Onset Date [...] wound healing acute Nonhealing surgical wound ac ruby Head and neck cancer chronic Delayed surgical wound healing acute Nonhealing surgical wound ac ruby Soft tissue radionecrosis ac ruby Head and neck cancer chronic [facility] Work Phone: Evaluation note* Diagnosis Onset Date Resolution Status Delayed surgical wound healing acute Nonhealing surgical wound ac ruby Soft tissue radionecrosis ac ruby 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 Delayed surgical wound healing acute Nonhealing surgical wound ac ruby Soft tissue radionecrosis ac ruby Head and neck cancer chronic Delayed surgical wound healing acute Nonhealing surgical wound ac ruby Soft tissue radionecrosis ac ruby Head and neck cancer chronic Delayed surgical wound healing acute Nonhealing surgical wound ac ruby Soft tissue radionecrosis ac ruby Head and neck cancer chronic [facility] Work Phone: Evaluation note* Diagnosis Onset Date Resolution Status 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 Delayed surgical wound healing acute Nonhealing surgical wound ac ruby Soft tissue radionecrosis ac ruby Head and neck cancer chronic Delayed surgical wound healing acute Nonhealing surgical wound ac ruby Soft tissue radionecrosis ac ruby Head and neck cancer chronic Delayed surgical wound healing acute Nonhealing surgical wound ac ruby Soft tissue radionecrosis ac ruby 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 Delayed surgical wound healing acute Nonhealing surgical wound ac ruby Soft tissue radionecrosis ac ruby Head and neck cancer chronic [facility] Work Phone: Evaluation note* Diagnosis Onset Date Resolution Status Delayed surgical wound healing acute Nonhealing surgical wound ac ruby Soft tissue radionecrosis ac ruby Head and neck cancer chronic Delayed surgical wound healing acute Nonhealing surgical wound ac ruby Soft tissue radionecrosis ac ruby 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 Delayed surgical wound healing acute Nonhealing surgical wound ac ruby Soft tissue radionecrosis ac ruby 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 Lung nodules chronic Head and neck cancer chronic Lung nodules chronic Anemia resolved Cancer related pain resolved Dehydration resolved Delayed surgical wound healing acute Nonhealing surgical wound ac ruby Soft tissue radionecrosis ac ruby Head and neck cancer chronic [facility] Work Phone: Evaluation note* Diagnosis Onset Date Resolution Status Delayed surgical wound healing acute Nonhealing surgical wound ac ruby Soft tissue radionecrosis ac ruby 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 Delayed surgical wound healing acute Nonhealing surgical wound ac ruby Soft tissue radionecrosis ac ruby 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 Lung nodules chronic Head and neck cancer chronic Lung nodules chronic Anemia resolved Cancer related pain resolved Dehydration resolved Delayed surgical wound healing acute Nonhealing surgical wound ac ruby Soft tissue radionecrosis ac ruby Head and neck cancer chronic Delayed surgical wound healing acute Nonhealing surgical wound ac ruby Soft tissue radionecrosis ac ruby Head and neck cancer chronic [facility] Work Phone: Evaluation note* Diagnosis Onset Date Resolution Status Delayed surgical wound healing acute Nonhealing surgical wound ac ruby Soft tissue radionecrosis ac ruby 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 Delayed surgical wound healing acute Nonhealing surgical wound ac ruby Soft tissue radionecrosis ac ruby 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 Lung nodules chronic Head and neck cancer chronic Lung nodules chronic Anemia resolved Cancer related pain resolved Dehydration resolved Delayed surgical wound healing acute Nonhealing surgical wound ac ruby Soft tissue radionecrosis ac ruby Head and neck cancer chronic Delayed surgical wound healing acute Nonhealing surgical wound ac ruby Soft tissue radionecrosis ac ruby Head and neck cancer chronic Delayed surgical wound healing acute Nonhealing surgical wound ac ruby Soft tissue radionecrosis ac ruby 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 [facility] Work Phone: Evaluation note* Diagnosis Onset Date Resolution Status 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 Delayed surgical wound healing acute Nonhealing surgical wound ac ruby Soft tissue radionecrosis ac ruby 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 Lung nodules chronic Head and neck cancer chronic Lung nodules chronic Anemia resolved Cancer related pain resolved Dehydration resolved Delayed surgical wound healing acute Nonhealing surgical wound ac ruby Soft tissue radionecrosis ac ruby Head and neck cancer chronic Delayed surgical wound healing acute Nonhealing surgical wound ac ruby Soft tissue radionecrosis ac ruby 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 Delayed surgical wound healing acute Nonhealing surgical wound ac ruby Soft tissue radionecrosis ac ruby Head and neck cancer chronic [facility] Work Phone: Evaluation note* Diagnosis Onset Date Resolution Status Delayed surgical wound healing acute Nonhealing surgical wound ac ruby Soft tissue radionecrosis ac ruby Head and neck cancer chronic Delayed surgical wound healing acute Nonhealing surgical wound ac ruby Soft tissue radionecrosis ac ruby 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 Delayed surgical wound healing acute Nonhealing surgical wound ac ruby Soft tissue radionecrosis ac ruby Head and neck cancer chronic Delayed surgical wound healing acute Nonhealing surgical wound ac ruby Soft tissue radionecrosis ac ruby Head and neck cancer chronic [facility] Work Phone: Evaluation note* Diagnosis Onset Date Resolution Status Delayed surgical wound healing acute Nonhealing surgical wound ac ruby Soft tissue radionecrosis ac ruby Head and neck cancer chronic Delayed surgical wound healing acute Nonhealing surgical wound ac ruby Soft tissue radionecrosis ac ruby 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 Delayed surgical wound healing acute Nonhealing surgical wound ac ruby Soft tissue radionecrosis ac ruby Head and neck cancer chronic Delayed surgical wound healing acute Nonhealing surgical wound ac ruby Soft tissue radionecrosis ac ruby Head and neck cancer chronic Delayed surgical wound healing acute Nonhealing surgical wound ac ruby Soft tissue radionecrosis ac ruby Head and neck cancer chronic [facility] Work Phone: Evaluation note* Diagnosis Onset Date Resolution Status Delayed surgical wound healing acute Nonhealing surgical wound ac ruby Soft tissue radionecrosis ac ruby 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 Lung nodules chronic [facility] Work Phone: Evaluation note* Diagnosis Acquired hypothyroidism- Primary Unspecified hypothyroidism Oropharyngeal dysphagia Dysphagia, oropharyngeal phase 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) Malignant neoplasm of mouth, unspecified site documented in this encounter [facility] Work Phone: Evaluation note* Diagnosis Onset Date Resolution Status Head and neck cancer chronic Lung nodules chronic 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 Esophageal dysphagia chronic [facility] Work Phone: Evaluation note* Diagnosis Onset Date Resolution Status 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 Esophageal dysphagia chronic [facility] Work Phone: Evaluation note* Diagnosis Oropharyngeal dysphagia- Primary Dysphagia, oropharyngeal phase Sensorineural hearing loss (SNHL) of both ears Cancer of oral cavity (Multi) Malignant neoplasm of mouth, unspecified site 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) Adverse effect of radiation therapy, subsequent encounter Sensorineural hearing loss (SNHL) of both ears- Primary documented in this encounter [facility] Work Phone: Evaluation note* Diagnosis Acquired hypothyroidism- [...] hypothyroidism Unspecified hypothyroidism documented in this encounter [facility] Work Phone: Evaluation note* Diagnosis Acquired hypothyroidism- [...] (Multi) Tracheostomy status documented in this encounter [facility] Work Phone: Evaluation note* Diagnosis Acquired hypothyroidism- [...] neck, subsequent encounter documented in this encounter [facility] Work Phone: History and physical note Author Elliott Akhtar [facility] September 03, 2023 2:00pm Note Date/Time September 03, 2023 2:00pm [facility] Medical Records Department [address] [place] [id number] History & Physical Exam 09/03/23 1400 MR#: [id number] Acct: [id number] Name: MY JAMA Rep #:[id number] : 1960 63 From: Elliott Akhtar DO PCP: YARI Pardo Status:[facility] Location: [place] [address] History and Physical Date of Admission: 09/03/23 MY JAMA, is a 63 M who presents to the office today for C established for management of mouth squamous [...] Appearance: average body habitus and well nourished [facility] Head: normal to inspection Ears: hearing grossly [...] Affect: normal affect Quality Reporting Tobacco Screening ([facility] 138) Smoking Status: Former smoker Assessment and [...] exam. 09/03/23 1400 <Electronically signed by Elliott Friend DO> Cosigner Signature (if applicable): CC: YARI Gonzalez; Elliott Friend, ~ Signed [facility] Work Phone: History of Present illness Narrative* Mr. MY JAMA, is a 62 year old male here for a followup regarding his open anterior neck wound. Last seen 06/14. He is currently seeing the wound clinic at [place]. He still has his Shiley XLT in. He wears his cap on all day. He only uncaps the trach at night time when he lays flat. He has nothad his trach changed. * He has a history of X1C7hA8 oral cavity SCCa with chin involvement s/p triple, trach, PEG, composite resection, excision of skin and soft tissue, segmental mandibulectomy, right neck dissection, leftneck exploration for vessels, reconstruction with left ALT and left fibular free flap on 11/07/21. Patient completed adjuvant chemoradiation on 02/06/22. * History: * Dx1: GaP2sN3 left neck (unknown primary) 2018 * Dx2: K5T1mG9 SCCa of the oral cavity 2020 * [...] lymphadenopathy * 09/12: Oral cavity biopsy at [facility] +SCCa * 10/14: PET FDG avid oral [...] the history, physical exam, discussion and plan. [id number]-Ihyewhqqfsaqdc-Vkdws [id number] Work Phone: History of Present illness Narrative* Mr. MY JAMA, is a 62 year old male here for a trach change. Last seen 06/14. He continues to be followed at the [place] wound clinic. Continues with Amber SCOTT, caps during day. Wound has continued to heal very slowly but is smaller. * He has a history of N0V4dN8 oral cavity SCCa with chin involvement s/p triple, trach, PEG, composite resection, excision of skin and soft tissue, segmental mandibulectomy, right neck dissection, leftneck exploration for vessels, reconstruction with left ALT and left fibular free flap on 11/07/21. Patient completed adjuvant chemoradiation on 02/06/22. * History: * Dx1: AkP6xT6 left neck (unknown primary) 2018 * Dx2: B1I8cL1 SCCa of the oral cavity 2020 * [...] lymphadenopathy * 09/12: Oral cavity biopsy at [facility] +SCCa * 10/14: PET FDG avid oral [...] the history, physical exam, discussion and plan. UV-Mlksiobatqznen-Hqiygxhnt Work Phone: History of Present illness Narrative* Mr. MY JAMA, is a 62 year old male here for a trach change. Last seen 06/14. He continues to be followed at the [place] wound clinic. Continues with Amber SCOTT caps during day. Wound has continued to heal very slowly but is smaller. * He has a history of U3B2dF9 oral cavity SCCa with chin involvement s/p triple, trach, PEG, composite resection, excision of skin and soft tissue, segmental mandibulectomy, right neck dissection, leftneck exploration for vessels, reconstruction with left ALT and left fibular free flap on 11/07/21. Patient completed adjuvant chemoradiation on 02/06/22. * History: * Dx1: LjW1nL9 left neck (unknown primary) 2018 * Dx2: S4W0iC1 SCCa of the oral cavity 2020 * [...] lymphadenopathy * 09/12: Oral cavity biopsy at [facility] +SCCa * 10/14: PET FDG avid oral [...] the history, physical exam, discussion and plan. RP-Nezaborsnqutqg-Onjpzzxvi Work Phone: History of Present illness NarrativeThis [...] as other doctors in his home in [place].He has had routine follow-ups on his cancer with no recurrence to date. He has had progressive hearing loss that may have been influenced by chemotherapy. He has completed all of his therapy at this point and is now on cancer surveillance exams. He has had no ear pain or drainage. Unfortunately there are no old hearing test to review. AS-Wwpmzzyiamrjko-Xztfw Work Phone: Hospital Discharge instructions* Activity:activity as [...] Therapy Orders:Occupational Therapy Orders: Eval and Treat ([facility]), dailyPhysical Therapy Orders: Eval and Treat ([facility]), dailySpeech Therapy Orders: Eval and Treat ([facility]), 1-3 times/week, NO ORAL LIQUIDS OR FOODS UNTIL CLEARED BY SURGICAL ATTENDING * Provider Follow Up:Physician To Follow at Skilled/Rehab: Attending Physician at [facility] * Follow Up Appointment 1:Physician/Dept/Service: Dr. Rachel Machuca for Referral: POVScheduled Date/Time: 29-Nov-2021 13:15Location: [facility] 1st Floor Desk BPhone Number:[phone] with questionsComments: Please arrive 10-15 minutes early, [...] Size (#) and Type: 6UN75R (6.0) cuffless Diannaley. Suction Catheter Size/Type 14 polish. Date Trach Inserted/Changed: 11/07/21;11/12/21. * PEG Tube [...] * Skilled Facility Instructions:FOR PATIENTS GOING TO HALFWAY FACILITY: Please make sure thispatient has all suctioning, dressing, trach care and tube feeding supplies in their home prior to leaving the snf facility. [facility] Name Dates Details Patient Instructions Indication:B12 nutritional deficiency Start:02-Dec-2020 Instruction Type:Provider Instructions for Treatment How to Access Health Informa tion Online using Patient Portal and [employer] Apps Indication:Smoker Start:02-Dec-2020 Instruction Type:Patient Education [...] Informa tion Online using Patient Portal and [employer] Apps Indication:Dry mouth Start:13-Mar-2021 Instruction Type:Patient Education Patient Instructions Indication:B12 nutritional deficiency Start:02-Dec-2020 Instruction Type:Provider Instructions for Treatment How to Access Health Informa tion Online using Patient Portal and [employer] Apps Indication:Smoker Start:02-Dec-2020 Instruction Type:Patient Education [...] Informa tion Online using Patient Portal and [email or web address] Apps Indication:Smoker Start:15-Aug-2021 Instruction Type:Patient Education Patient Instructions Indication:BMI 20.0-20.9, adult Start:26-Jul-2021 Instruction Type:Provider Instructions for Treatment How to Access Health Informa tion Online using Patient Portal and [employer] Apps Indication:BMI 20.0-20.9, adult Start:26-Jul-2021 Instruction Type:Patient Education Patient Instructions Indication:Dry mouth Start:13-Mar-2021 Instruction Type:Provider Instructions for Treatment How to Access Health Informa tion Online using Patient Portal and [employer] Apps Indication:Dry mouth Start:13-Mar-2021 Instruction Type:Patient [...] Informa tion Online using Patient Portal and [employer] Apps Indication:BMI less than 19,adult Start:15-Feb-2022 [...] Informa tion Online using Patient Portal and [employer] Apps Indication:Smoker Start:15-Aug-2021 Instruction Type:Patient Education [...] Patient Portal and [employer] Apps Indication:Hypothyroid Start:25-Mar-2022 Instruction Type:Patient Education Patient Instructions Indication:Smoker Start:15-Aug-2021 [...] Informa tion Online using Patient Portal and [email or web address] Apps Indication:Hypothyroid Start:15-Dec-2021 Instruction Type:Patient Education Patient Instructions Indication:Smoker Start:15-Aug-2021 Instruction Type:Provider Instructions for Treatment How to Access Health Informa tion Online using Patient Portal and [email or web address] Apps Indication:Smoker Start:15-Aug-2021 Instruction Type:Patient Education Patient Instructions Indication:BMI 20.0-20.9, adult Start:26-Jul-2021 Instruction Type:Provider Instructions for Treatment How to Access Health Informa tion Online using Patient Portal and [email or web address] Apps Indication:BMI 20.0-20.9, adult Start:26-Jul-2021 Instruction Type:Patient Education Patient Instructions Indication:Dry mouth Start:13-Mar-2021 Instruction Type:Provider Instructions for Treatment How to Access Health Informa tion Online using Patient Portal and [email or web address] Apps Indication:Dry mouth Start:13-Mar-2021 Instruction Type:Patient Education Patient Instructions Indication:B12 nutritional deficiency Start:02-Dec-2020 Instruction Type:Provider Instructions for Treatment How to Access Health Informa tion Online using Patient Portal and [email or web address] Apps Indication:Smoker Start:02-Dec-2020 Instruction Type:Patient Education Patient [...] Informa tion Online using Patient Portal and [employer] Apps Indication:Dry mouth Start:13-Mar-2021 Instruction Type:Patient Education Patient Instructions Indication:B12 nutritional deficiency Start:02-Dec-2020 Instruction Type:Provider Instructions for Treatment How to Access Health Informa tion Online using Patient Portal and [email or web address] Apps Indication:Smoker Start:02-Dec-2020 Instruction Type:Patient Education Patient [...] (narrative)* Reason for Referral: Speaking valve placement. [facility] (narrative)No reason for referral information availableDiley Ridge Medical Center Work Phone: Instructions Name Dates Details BMI [...] scans FLOOR OF MOUTH SQUAMOUS CELL CARCINOMA MACHINE ROOM ENGINEER DYSPHAGIA Reason for Visit Head and neck cancer Lung nodules Floor of mouth squamous cell carcinoma Esophageal dysphagia Chief Complaint CANCER 6 month f/u H/N review CT scans FLOOR OF MOUTH SQUAMOUS CELL CARCINOMA MACHINE ROOM ENGINEER DYSPHAGIA MALIGNANT NEOPLASM OF MANDIBLE/RX HERE Reason [...] of skin March 03, 2025 3:19 pm Chief Complaint Admit Date MOUTH CANCER December 17, 2024 9:0 0am abnormal finding of lung field December 8:01am [address] NO LABS January 05 10:58am 6 MONTH F/U H/N February 02, 2025 9:28a m ONC MNT February 02, 2025 10:37 am FU February 11, 2025 7:56a m Paresthesia of skin March 03, 2025 1:45 pm Paresthesia of skin March 03, 2025 3:19 pm FLOOR OF MOUTH SQUAMOUS CELL/RX SCANNED IN March 25, 2025 8:30am BLE; PARESTHESIA March 31, 2025 7:02a m BLE; PARESTHESIA March 31, 2025 3:30p m Advance Directives No Advanced Directives Records Found Advance Directive Response Recorded Date/ Time Advance Directives on File Yes Aprus 2018 1:06pm Advance Directives No December 07, 2 2:14pm Living Will Yes December 10, 2021 5:19pm Power of Service Bar Cashier No December 10 5:19pm Advance Directive Response Recorded Date/ Time Advance Directives on File Yes Aprus 2018 1:06pm Advance Directives No December 07, 2:14pm Living Will No December 15, 2021 12:08pm Power of Service Bar Cashier No December 15 12:08pm Advance Directive Response Recorded Date/ Time Advance Directives No December 20 10:23am Living Will No December 20, 2021 10:23am Power of Service Bar Cashier No December 20 10:23am Advance Directive Response Recorded Date/ Time Advance Directives No January 10 11:06am Living Will No January 10, 2022 11:06am Power of Service Bar Cashier No January 10 11:06am Advance Directive Response Recorded Date/ Time Advance Directives on File Yes January 17, 2022 9:59am Advance Directives No January 17 9:59am Living Will No January 22, 2022 10 :45pm Power of Service Bar Cashier No January 22, 2022 10:45pm Advance Directive Response Recorded Date/ Time Advance Directives No January 31 9:09am Living Will No January 31, 2022 9 :09am Power of Service Bar Cashier No January 31, 2022 9:09am Advance Directives on File Yes January 17, 2022 9:59am Advance Directive Response Recorded Date/ Time Advance Directives on File Yes January 17, 2022 9:59am Advance Directives No January 31 9:09am Living Will No January 31, 2022 9 :09am Power of Service Bar Cashier No January 31, 2022 9:09am Advance Directive Response Recorded Date/ Time Advance Directives on File Yes January 17, 2022 8:59am Advance Directives No January 31 8:09am Living Will No January 31, 2022 8 :09am Power of Service Bar Cashier No January 31, 2022 8:09am Advance Directive Response Recorded Date/ Time Advance Directives No January 31 8:09am Living Will No January 31, 2022 8 :09am Power of Service Bar Cashier No January 31, 2022 8:09am Advance Directive Response Recorded Date/ Time Advance Directives No January 31 9:09am Living Will No January 31, 2022 9 :09am Power of Service Bar Cashier No January 31, 2022 9:09am Advance Directive Response Recorded Date/ Time Name of Medical Power of Service Bar Cashier DAUGHTER September 02, 2023 9:21am Advance Directives No January 31 8:09am Living Will Yes September 02 023 9:21am Power of Service Bar Cashier Yes September 02, 2023 9:21am Advance Directive Response Recorded Date/ Time Living Will Yes February 13, 2024 1 0:29am Do you have a Healthcare Power of Service Bar Cashier? Yes February 13, 2024 10:29am Living Will Yes October 20 12:36pm Do you have a Healthcare Power of Service Bar Cashier? Yes October 20, 2024 12:36pm Name of Medical Power of Service Bar Cashier DAUGHTER October 20, 2024 12:36pm Advance Directives No January 31 9:09am Advance Directive Response Recorded Date/ Time Living Will Yes February 13, 2024 1 0:29am Do you have a Healthcare Power of Service Bar Cashier? 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 DATE CREATED AUTHOR AUTHOR'S ORGANIZ ATION 04/26/2023 [facility] DATE CREATED AUTHOR AUTHOR'S ORGANIZ ATION 08/08/2024 [facility] DATE CREATED AUTHOR AUTHOR'S ORGANIZ ATION 03/15/2025 [facility] DATE CREATED AUTHOR AUTHOR'S ORGANIZ ATION 04/13/[address] [facility] Care Teams (unrecognized sec tion and content) Team Status: Active Member Role Status Dates Kya Gonzalez MACHINE ROOM ENGINEER, MACHINE ROOM ENGINEER-C Family Provider Active Kya Gonzalez MACHINE ROOM ENGINEER, MACHINE ROOM ENGINEER-C Primary Care Provider Active Team Status: Inactive Member Role Status Dates Kya Gonzalez MACHINE ROOM ENGINEER, MACHINE ROOM ENGINEER-C Primary Care Provider Active Dr. Santiago Sellers DO Attending Provider Active Team Status: Active Member Role Status Dates Kya Gonzalez MACHINE ROOM ENGINEER, MACHINE ROOM ENGINEER-C Primary Care Provider Active Joya Galvez NP, MACHINE ROOM ENGINEER-C Attending Provider, Other Pro vider Active Team Status: Active Member Role Status Dates Kya Gonzalez MACHINE ROOM ENGINEER, MACHINE ROOM ENGINEER-C Primary Care Provider Active Joya Galvez NP, MACHINE ROOM ENGINEER-C Attending Provi brittany, Referring Provider, Other Provider Active Team Status: Active Member Role Status Dates Kya Gonzalez MACHINE ROOM ENGINEER, MACHINE ROOM ENGINEER-C Primary Care Provider Active Dr. Santiago Sellers DO Attending Provider, Referring P rovider Active Team Status: Inactive Member Role Status Dates Kya Gonzalez MACHINE ROOM ENGINEER, MACHINE ROOM ENGINEER-C Primary Care Provider Active Dr. Quincy Simpson MD Attending Provider Active Team Status: Inactive Member Role Status Dates Kya Gonzalez MACHINE ROOM ENGINEER, MACHINE ROOM ENGINEER-C Primary Care Provider Active Joya Galvez NP, MACHINE ROOM ENGINEER-C Attending Provider, Referring Provider Active Team Status: Inactive Member Role Status Dates Kya Gonzalez NP, MACHINE ROOM ENGINEER-C Primary Care Provider, Referring P rovider Active Dr. Quincy Simpson MD Attending Provider Active Team Status: Active Member Role Status Dates Kya Gonzalez MACHINE ROOM ENGINEER, MACHINE ROOM ENGINEER-C Primary Care Provide r, Family Provider, Referring Provider Active Dr. Quincy Simpson MD Attending Provider Active Dr. Santiago Sellers DO Active Marce Maxwell MACHINE ROOM ENGINEER, MACHINE ROOM ENGINEER-C Active Team Status: Inactive Member Role Status Dates Kya Gonzalez MACHINE ROOM ENGINEER, MACHINE ROOM ENGINEER-C Primary Care Provider, Referring P rovider Active Dr. Santiago Sellers DO Attending Provider Active Team Status: Inactive Member Role Status Dates Dr. Santiago Sellers DO Attending Provider, Referring P rovider Active Sadie Santiago NP-C Primary Care Provider Active Team Status: Active Member Role Status Dates Kya Gonzalez MACHINE ROOM ENGINEER, MACHINE ROOM ENGINEER-C Primary Care Provider Active Joya Galvez MACHINE ROOM ENGINEER, MACHINE ROOM ENGINEER-C Attending Provider, Referring Provider Active Team Status: Inactive Member Role Status Dates Kya Gonzalez MACHINE ROOM ENGINEER, MACHINE ROOM ENGINEER-C Primary Care Provider Active Dr. Quincy Simpson MD Attending Provider, Referrin g Provider Active [employer] Supervisor Relationship Specialty Start Date End Date Kya Gonzalez, ADMINISTRATIVE PROFESSIONAL-DIRECTOR [employer], ADMINISTRATIVE PROFESSIONAL-SMALL STOCK FACER [id number] [place] [id number] PCP - General 01/19/19 Jeana Gaspar DO [address] [address] [facility] Team Status: Inactive Member Role Status Dates Kya Gonzalez MACHINE ROOM ENGINEER, MACHINE ROOM ENGINEER-C Primary Care Provider, Referring P rovider Active Dr. Elliott Akhtar DO Attending Provider Active Team Status: Active Member Role Status Dates Kya Gonzalez MACHINE ROOM ENGINEER, MACHINE ROOM ENGINEER-C Primary Care Provider, Referring P rovider Active Dr. Elliott Akhtar DO Attending Provider, Other Prov ider Active Team Status: Inactive Member Role Status Dates Kya Gonzalez MACHINE ROOM ENGINEER, MACHINE ROOM ENGINEER-C Primary Care Provider Active Dr. Santiago Sellers DO Attending Provider, Referring P rovider Active [employer] Supervisor Relationship Specialty Start Date End Date Kya Gonzalez, ADMINISTRATIVE PROFESSIONAL-DIRECTOR [employer], ADMINISTRATIVE PROFESSIONAL-SMALL STOCK FACER [id number] [place] [id number] PCP - General 01/19/19 Jeana Gaspar DO [address] [facility] [address] [place] [address] PCP - [facility] PCP 09/23/21 [employer] Supervisor Relationship Specialty Start Date End Date Kya Gonzalez, ADMINISTRATIVE PROFESSIONAL-DIRECTOR [employer], ADMINISTRATIVE PROFESSIONAL-SMALL STOCK FACER [id number] [place] [phone] PCP - General 01/19/19 Jeana Gaspar DO [address] [facility] [address] [place] [address] PCP - [facility] PCP 09/23/21 [employer] Supervisor Relationship Specialty Start Date End Date Kya Gonzalez, ADMINISTRATIVE PROFESSIONAL-DIRECTOR [employer], ADMINISTRATIVE PROFESSIONAL-SMALL STOCK FACER [id number] [place] [phone] PCP - General 01/19/19 Jeana Gaspar DO [address] [facility] [address] [place] [address] PCP - [facility] PCP 09/23/21 Team Status: Active Member Role Status Dates Sadie Santiago NP-C Primary Care Provider Active Team Status: Inactive Member Role Status Dates Dr. Quincy Simpson MD Attending Provider Active Start: August 25, 2024 End: August 25, 2024 Dr. Quincy Simpson MD Referring Provider Active Start: August 25, 2024 End: August 25, 2024 ERWIN SantillanC Primary Care Provider Active Start: August 25, [...] Inactive Member Role Status Dates Sadie Santiago MACHINE ROOM ENGINEER-C Primary Care Provider Active Start: September 15, [...] Active Member Role Status Dates Sadie Santiago NP-C Primary Care Provider Active Start: September 15, 2024 Dr. Quincy Simpson MD Referring Provider Active Start: September 15, 2024 Dr. Quincy Simpson MD Other Provider Active Start: September 15, 2024 Loretta Jade NP-C Attending Provider Active Start: September 15, 2024 YARI Nguyen Other Provider Active Sta rt: September 15, 2024 Team Status: Inactive Member Role Status Dates Sadie Santiago NP-C Primary Care Provider Active Start: September 28, 2024 End: September 28, 2024 Sadie Santiago NP-C Referring Provider Active Start: September 28, 2024 End: September 28, 2024 Dr. Quincy Simpson MD Attending Provider Active Start: September 28, 2024 End: September 28, 2024 Team Status: Inactive Member Role Status Dates Dr. Elliott Akhtar DO Attending Provider Active Start: October 21, 2024 End: October 21, 2024 Sadie Santiago NP-C Primary Care Provider Active Start: October 21, 2024 End: October 21, 2024 Sadie Santiago NP-C Referring Provider Active Start: October 21, 2024 End: October 21, 2024 Team Status: Active Member Role Status Dates Dr. Elliott Akhtar DO Attending Provider Active Start: October 21, 2024 Dr. Elliott Akhtar DO Other Provider Active St art: October 21, 2024 Sadie Santiago , MACHINE ROOM ENGINEER-C Primary Care Provider Active Start: October 21, 2024 Sadie Santiago MACHINE ROOM ENGINEER-C Referring Provider Active Start: October 21, 2024 Team Status: Active Member Role Status Dates Kya Gonzalez MACHINE ROOM ENGINEER, MACHINE ROOM ENGINEER-C Primary Care Provider Active Start: December 16, 2024 Dr. Santiago Sellers DO Attending Provider Active Start: December 16, 2024 Dr. Santiago Sellers DO Referring Provider Active Start: December 16, 2024 Team Status: Inactive Member Role Status Dates Sadie Santiago MACHINE ROOM ENGINEER-C Primary Care Provider Active Start: December 17, 2024 End: December 17, 2024 Dr. Santiago Sellers DO Attending Provider Active Start: December 17, 2024 End: December 17, 2024 Dr. Santiago Sellers DO Referring Provider Active Start: December 17, 2024 End: December 17, 2024 Team Status: Inactive Member Role Status Dates Sadie Santiago MACHINE ROOM ENGINEER-C Primary Care Provider Active Start: December 29, 2024 End: December 29, 2024 Dr. Quincy Simpson MD Attending Provider Active Start: December 29, 2024 End: December 29, 2024 Dr. Quincy Simpson MD Referring Provider Active Start: December 29, 2024 End: December 29, 2024 Team Status: Active Member Role Status Dates Kya Gonzalez MACHINE ROOM ENGINEER, MACHINE ROOM ENGINEER-C Primary Care Provider Active Start: December 30, 2024 Dr. Santiago Sellers DO Attending Provider Active Start: December 30, 2024 Dr. Santiago Sellers DO Referring Provider Active Start: December 30, 2024 Team Status: Inactive Member Role Status Dates Sadie Santiago MACHINE ROOM ENGINEER-C Primary Care Provider Active Start: January 05, 2025 End: January 05, 2025 Sadie Santiago MACHINE ROOM ENGINEER-C Referring Provider Active Start: January 05, 2025 End: January 05, 2025 Dr. Quincy Simpson MD Attending Provider Active Start: January 05, 2025 End: January 05, 2025 Team Status: Active Member Role Status Dates Kya Gonzalez MACHINE ROOM ENGINEER, MACHINE ROOM ENGINEER-C Primary Care Provider Active Start: January 20, 2025 Dr. Santiago Sellers DO Attending Provider Active Start: January 20, 2025 Dr. Santiago Sellers DO Referring Provider Active Start: January 20, 2025 Team Status: Inactive Member Role Status Dates Sadie Santiago MACHINE ROOM ENGINEER-C Primary Care Provider Active Start: February 02, 2025 End: February 02, 2025 Sadie Santiago MACHINE ROOM ENGINEER-C Referring Provider Active Start: February 02, 2025 End: February 02, 2025 Dr. Santiago Sellers DO Attending Provider Active Start: February 02, 2025 End: February 02, 2025 Team Status: Inactive Member Role Status Dates Sadie Santiago MACHINE ROOM ENGINEER-C Primary Care Provider Active Start: February 02, 2025 End: February 20, 2025 Dr. Santiago Sellers DO Attending Provider Active Start: February 02, 2025 End: February 20, 2025 Team Status: Inactive Member Role Status Dates Sadie Santiago MACHINE ROOM ENGINEER-C Primary Care Provider Active Start: February 11, 2025 End: February 11, 2025 Sadie Santiago MACHINE ROOM ENGINEER-C Referring Provider Active Start: February 11, 2025 End: February 11, 2025 Dr. Elliott Akhtar DO Attending Provider Active Start: February 11, 2025 End: February 11, 2025 Team Status: Inactive Member Role Status Dates Sadie Santiago MACHINE ROOM ENGINEER-C Primary Care Provider Active Start: March 03, 2025 End: March 03, 2025 Dr. James Stephens DO Attending Provider Active Start: March 03, 2025 End: March 03, 2025 Dr. James Stephens DO Referring Provider Active Start: March 03, 2025 End: March 03, 2025 Team Status: Active Member Role Status Dates Sadie Santiago MACHINE ROOM ENGINEER-C Primary Care Provider Active Start: March 03, 2025 Dr. James Stephens DO Referring Provider Active Start: March 03, 2025 Dr. James Stephens DO Other Provider Active Start: March 03, 2025 Dr. Loretta Rausch MD Attending Provider Active S tart: March 03, 2025 [employer] Supervisor Relationship Specialty Start Date End Date Kya Gonzalez, ADMINISTRATIVE PROFESSIONAL-DIRECTOR [employer], ADMINISTRATIVE PROFESSIONAL-SMALL STOCK FACER [address] [place] [phone] PCP - General 01/19/19 Team Status: Active Member Role/Relationship Status Dates Sadie Santiago MACHINE ROOM ENGINEER-C Primary Care Provider Active Team Status: Inactive Member Role/Relationship Status Dates Sadie Santiago MACHINE ROOM ENGINEER-C Primary Care Provider Active Start: December 17, 2024 End: December 17, 2024 Dr. Santiago Sellers DO Attending Provider Active Start: December 17, 2024 End: December 17, 2024 Dr. Santiago Sellers DO Referring Provider Active Start: December 17, 2024 End: December 17, 2024 Team Status: Inactive Member Role/Relationship Status Dates Sadie Santiago MACHINE ROOM ENGINEER-C Primary Care Provider Active Start: December 29, 2024 End: December 29, 2024 Dr. Quincy Simpson MD Attending Provider Active Start: December 29, 2024 End: December 29, 2024 Dr. Quincy Simpson MD Referring Provider Active Start: December 29, 2024 End: December 29, 2024 Team Status: Inactive Member Role/Relationship Status Dates Sadie Santiago MACHINE ROOM ENGINEER-C Primary Care Provider Active Start: January 05, 2025 End: January 05, 2025 Sadie Santiago MACHINE ROOM ENGINEER-C Referring Provider Active Start: January 05, 2025 End: January 05, 2025 Dr. Quincy Simpson MD Attending Provider Active Start: January 05, 2025 End: January 05, 2025 Team Status: Inactive Member Role/Relationship Status Dates Sadie Santiago MACHINE ROOM ENGINEER-C Primary Care Provider Active Start: February 02, 2025 End: February 02, 2025 Sadie Santiago MACHINE ROOM ENGINEER-C Referring Provider Active Start: February 02, 2025 End: February 02, 2025 Dr. Santiago Sellers DO Attending Provider Active Start: February 02, 2025 End: February 02, 2025 Team Status: Inactive Member Role/Relationship Status Dates Sadie Santiago MACHINE ROOM ENGINEER-C Primary Care Provider Active Start: February 02, 2025 End: February 20, 2025 Dr. Santiago Sellers DO Attending Provider Active Start: February 02, 2025 End: February 20, 2025 Team Status: Inactive Member Role/Relationship Status Dates Sadie Jack , MACHINE ROOM ENGINEER-C Primary Care Provider Active Start: February 11, 2025 End: February 11, 2025 Sadie Santiago MACHINE ROOM ENGINEER-C Referring Provider Active Start: February 11, 2025 End: February 11, 2025 Dr. Elliott Akhtar DO Attending Provider Active Start: February 11, 2025 End: February 11, 2025 Team Status: Inactive Member Role/Relationship Status Dates Sadie Santiago , MACHINE ROOM ENGINEER-C Primary Care Provider Active Start: March 03, 2025 End: March 03, 2025 Dr. James Stephens DO Attending Provider Active Start: March 03, 2025 End: March 03, 2025 Dr. James Stephens DO Referring Provider Active Start: March 03, 2025 End: March 03, 2025 Team Status: Active Member Role/Relationship Status Dates Sadie Santiago , MACHINE ROOM ENGINEER-C Primary Care Provider Active Start: March 03, 2025 Dr. James Stephens DO Referring Provider Active Start: March 03, 2025 Dr. James Stephens DO Other Provider Active Start: March 03, 2025 Dr. Loretta Rausch MD Attending Provider Active S tart: March 03, 2025 Team Status: Active Member Role/Relationship Status Dates Kya Posadaschioma MOSS, MACHINE ROOM ENGINEER-C Primary Care Provider Active Start: March 25, 2025 Dr. Santiago Sellers DO Attending Provider Active Start: March 25, 2025 Dr. Santiago Sellers DO Referring Provider Active Start: March 25, 2025 Team Status: Inactive Member Role/Relationship Status Dates Sadie Santiago MACHINE ROOM ENGINEER-C Primary Care Provider Active Start: March 31, 2025 End: March 31, 2025 Dr. James Stephens DO Attending Provider Active Start: March 31, 2025 End: March 31, 2025 Dr. James Stephens DO Referring Provider Active Start: March 31, 2025 End: March 31, 2025 Team Status: Active Member Role/Relationship Status Dates Sadie Santiago MACHINE ROOM ENGINEER-C Primary Care Provider Active Start: March 31, 2025 Dr. James Stephens DO Referring Provider Active Start: March 31, 2025 Dr. James Spittle , DO Other Provider Active Start: March 31, 2025 Dr. Loretta Rausch MD Attending Provider Active S tart: March 31, 2025 Reason for Visit (unrecogniz ed section and [...] BE BASED ON THE PRIMARY CLINICAL RECORDS. [employer] provides no warranty or guarantee of the accuracy or completeness of information in this document.
--- NOTE | 2025-04-15 07:39 | PCM.HP.STD ---
HPI - General General Date of Admission: 04/15/25 Date of Service: 04/15/25 Chief Complaint: Esophageal dysphagia HPI Narrative MY PEREZ, is a 64 M who presents for an upper endoscopy regarding severe esophageal dysphagia secondary to radiation. 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 Underwent radiation with concurrent carboplatin for head/neck cancer. At follow up it was noted he has dysphagia. Modified Barium 7.22.22 moderate oropharyngeal dysphagia, mild esophageal dysphasia. Modified Barium 9..22 moderate-severe oropharyngeal phase dysphagia, puree texture. Modified Barium 11..23 severe oropharyngeal phase dysphagia, recommend puree texture. High risk for aspiration *[facility] established 08.30.23 he has had a tracheostomy for the last two years. He has been having difficulty swallowing foods with history as above. Daughter is concerned regarding frequent pneumonia during the winter months. EGD 09.03.23 Expiratory glottic narrowing was found.The nasopharynx and oropharynx are abnormal. Surgically absent larynx. Esophageal mucosal changes suggestive of eosinophilic esophagitis. Benign-appearing esophageal stenosis. Dilated. Small hiatal hernia. No gross lesions in the entire stomach. No gross lesions in the first portion of the duodenum. Biopsies were taken with a cold forceps for evaluation of eosinophilic esophagitis. OV 5.21.24 pt reports continued difficulty swallowing. EGD 5.30.24 The nasopharynx and oropharynx are abnormal. Benign-appearing esophageal stenosis. Dilated. Injected with botulinum toxin. No gross lesions in the entire stomach. No gross lesions in the duodenal bulb. No specimens collected. Modified Barium Swallow 10.2.24 Severe oropharyngeal dysphagia OV 11.22.24 pt reports continued difficulty swallowing, denies other GI symptoms of concern at this time. EGD 1..25 Benign-appearing esophageal stenosis. Dilated. Small hiatal hernia. No gross lesions in the duodenal bulb. No specimens collected. Modified Barium Swallow 3.27.25 severe oropharyngeal dysphagia OV 5.22.25 pt reports that he is feeling well overall and denies GI symptoms of concern, but would like to schedule his next EGD. 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 peg tube removed Anemia Cancer related pain 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 cell carcinoma lt neck Hypertension Mass of left side of neck Difficulty swallowing Home Medications Medication Instructions Recorded Last Taken Type albuterol sulfate 1.25 mg/3 mL 1.25 mg (3 mL) inhalation Q4H PRN 12/10/21 Unknown Rx solution for nebulization bronchospasm #90 mL amlodipine 5 mg tablet 5 mg PO DAILY bp 01/23/22 04/14/25 History sodium chloride 1,000 mg soluble 3 g PO BID #60 tabs 01/25/22 04/14/25 Rx tablet nystatin 100,000 unit/mL oral 1 ml PO Q6H PRN mouth irritation 02/14/22 Unknown History suspension oxycodone 5 mg tablet 5 mg PO BID PRN pain 05/23/22 04/15/25 History Levothyroxine 100 mcg PO DAILY thyroid 01/31/23 04/15/25 History folic acid 400 mcg tablet 0.4 mg PO DAILY 09/15/24 04/14/25 History cholecalciferol (vitamin D3) 50 50 mcg PO DAILY 04/12/25 04/14/25 History mcg (2,000 unit) capsule (Vitamin D3) mecobalamin (vitamin B12) 1,000 1,000 mcg PO DAILY 04/12/25 04/14/25 History mcg chewable tablet pentoxifylline 400 mg 400 mg PO TID 04/12/25 04/14/25 History tablet,extended release pilocarpine HCl 5 mg tablet 5 mg PO TID 04/12/25 04/14/25 History Allergy/AdvReac Type Severity Reaction Status Date / Time No Known Allergies Allergy Verified 04/15/25 07:36 Family History Mother CVA (cerebral vascular accident) Surgical History History of esophagogastroduodenoscopy (EGD) History of mandibular surgery Hx of tonsillectomy History of removal of Port-a-Cath s/p port placement (~01/26/19) S/P percutaneous endoscopic gastrostomy (PEG) tube placement (~01/26/19) history of biopsy neck Social History Smoking Status: Former smoker quit date: 09/16/21 Tobacco: How many years used: 30 how long ago did patient quit smokin-4 months ago second hand exposure: Yes alcohol intake: former details: August 2021 substance use type: does not use diet: other well-balanced diet: other details: on a soft food diet, hasn't used feeding tube since early October 2022 seatbelt use: sometimes do you feel safe at home: Yes ROS Constitutional Constitutional: Denies fatigue, fever(s), poor appetite, weight gain or weight loss Gastrointestinal Gastrointestinal: Denies belching, bloating, change in bowel habits, change in stool character, chewing difficulty, coffee ground emesis, constipation, cramping, diarrhea, dyspepsia, dysphagia, early satiety, excessive flatus, fecal incontinence, heartburn, hematemesis, hematochezia, hemorrhoids, loose stools, melena, nausea, odynophagia, rectal bleeding, tenesmus, vomiting or weight changes Physical Exam Const alert, oriented x3, no apparent distress and healthy appearing General Appearance: cooperative GI normal to inspection, nondistended, normoactive bowel sounds, soft to palpation, non-tender and non-distended Percussion: normal to percussion Rectal Exam: deferred Assessment & Plan Assessment/Plan (1) Esophageal dysphagia: PLAN: Assessment and Plan Assessment and Plan (1) Esophageal dysphagia: Status: Chronic Plan: 62-year-old male with a diagnosis of 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 Patient is status post tonsillectomies and uveal excision yet no primary identified. Received concomitant chemoradiation January through March 2019 tolerated with expected but no excessive toxicities. He was in complete remission went on surveillance with no evidence to suggest cancer recurrence until August 2021. Indeterminate too small to further characterize lung nodules on initial staging chest CT of November 2018 remains stable for 2 years on imaging through February 2021. 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 Restaging did not suggest systemic disease. October 2021 he underwent radical surgery. Received adjuvant combined modality therapy with radiation and weekly carboplatin chemosensitization November–January. 11/07/2021: PEG tube placement, tracheostomy, composite resection of oral cavity, excision of skin and soft tissue, segmental mandibulectomy, right selective neck dissection and left neck exploration for vessels. Reconstruction was thigh free flap and had complex neck closure with split thickness skin graft. Trach was removed following surgery on 12/05/2021 with the trach re-inserted due to difficulty breathing when lying flat. Pt has followed with OP ST during and after radiation treatment. Most recent MBSS 06/15/22 recommended moist puree textures / thin liquids with strict aspiration precautions and GI consult for dilation, very narrow and decreased opening/duration of upper esophageal sphincter. We will repeat his upper endoscopy to evaluate his upper GI tract. He had a severe at the level of the cricopharyngeus muscle involving the upper esophageal sphincter into the proximal esophagus with dilation up to 42 Faroese savory dilator. He did well up until a month ago where he had a worsening swallowing. He will undergo repeat upper endoscopy with Botox injection and dilation of the esophagus.
[2025-04-15] MEDS: Lactated Ringers 1,000 ML 15 ML IV (07:46)
--- NOTE | 2025-04-15 08:00 | PCM.PRE.AN2 ---
ASA Classification* ASA Classification ASA Classification: 3 Assessment & Plan Anesthesia* Anesthesia Assessment Anesthesia Assessment: Discussed sedation and/or anesthesia options, risks, benefits, and alternatives with patient/parents/legal guardian/POA. Questions invited. The patient/parents/legal guardian/POA seems to understand and agrees to proceed with anesthesia plan. Reviewed the physical assessment, medical history, allergy history and patient home medications list prior to surgery/procedure/anesthetic and documented any changes. Performed airway and anesthesia risk assessments. Anesthesia Type Anesthesia Type: General and MAC History Source History Obtained from:: Patient and Chart Anesthesia Focused Assessment* Temperature: 97.9 F Pulse Rate: 67 Blood Pressure: 167/70 Respiratory Rate: 16 Pulse Ox: 99 Airway Assessment Mouth opens: 2 cm Mallampati Score: IV Teeth Condition: Full and Missing Neck Range of motion (ROM): Limited ROM Comment: Has a trach Labs Anesthesia Preop lab: CBC WBC 7.5 K/mm3 (4.4-11.0) 05/13/24 10:47 05/13/24 RBC 4.83 M/mm3 (4.6-6.2) 05/13/24 10:47 05/13/24 Hgb 14.6 g/dL (13.0-16.5) 05/13/24 10:47 05/13/24 Hct 44.3 % (40-54) 05/13/24 10:47 05/13/24 Plt Count 291 K/mm3 (150-450) 09/15/24 08:52 09/15/24 CHEMISTRY Potassium 3.9 mmol/L (3.5-5.1) 05/13/24 10:47 05/13/24 Sodium 136 mmol/L (136-145) 05/13/24 10:47 05/13/24 Magnesium 1.9 mg/dL (1.6-2.6) 05/23/22 11:05 05/23/22 Phosphorus 3.9 mg/dL (2.5-4.9) 05/23/22 11:05 05/23/22 BUN 10 mg/dL (7-18) 05/13/24 10:47 05/13/24 Creatinine 0.46 mg/dL (0.70-1.30) L 05/13/24 10:47 05/13/24 Glucose 110 mg/dL (74-106) H 05/13/24 10:47 05/13/24 TSH 2.570 uIU/mL (0.358-3.740) 05/13/24 10:47 05/13/24 COAG PT 12.8 SECONDS (11.7-14.9) 09/15/24 08:52 09/15/24 Pre-Assessment Diagnosis/Proposed Procedure Planned Operative Procedure(s): EGD Anesthesia History Anesthesia History - voice network administrator: Anesthesia History - voice network administrator Hx Hospitalization No 04/12/25 11:13 Any Problems With Anesthesia No 04/12/25 11:13 Cholinesterase deficiency No 04/12/25 11:13 You/Your Family Experience No 04/12/25 11:13 fever (hyperthermia) with Relationship Recent Exposure to Contagious No 04/15/25 07:40 Disease Does patient have nerve No 04/12/25 11:13 stimulator Patient instructed to have device shut off --Does patient have Pacemaker No 04/15/25 07:40 or ICD? When Was Last Pacemaker Check QUESTION #4 FULL TEXT: You/Your Family Experience fever (hyperthermia) with Anesthesia Last Oral Intake Last Oral intake: Last Oral Intake NPO since 00:01 04/15/25 07:40 Meds taken in AM with sips of No 04/15/25 07:40 water? Meds patient instructed to take am of surgery PONV PONV - voice network administrator: PONV - voice network administrator Female No 04/12/25 11:13 HX of Motion Sickness No 04/12/25 11:13 HX of N/V After Surgery No 04/12/25 11:13 Non-Smoker Yes 04/12/25 11:13 Duration of Surgery greater No 04/12/25 11:13 than 60 minutes Number of Risk Factors 1 04/12/25 11:13 PONV Score Low Risk 04/12/25 11:13 Height & Weight Height & Weight: Anesthesia: Height & Weight Height 5 ft 5 in 04/15/25 07:40 Weight: 54 kg 04/15/25 07:40 Body Mass Index (BMI) 19.8 04/15/25 07:40 Respiratory Assessment Respiratory Assessment - voice network administrator: Respiratory Tract Infection Hx - voice network administrator Hx Respiratory Tract Infection No 04/12/25 11:13 STOP Sleep Apnea STOP Sleep Apnea - voice network administrator: STOP Sleep Apnea - voice network administrator Hx Hypertension Yes: CONTROLLED WITH MED 04/12/25 11:13 Hx Sleep Apnea No 04/12/25 11:13 CPAP BIPAP Do you snore loudly (louder No 04/12/25 11:13 than talking or can be heard Do you often feel tired/ No 04/12/25 11:13 fatigued/ sleepy during daytime? Has anyone observed you stop No 04/12/25 11:13 breathing during sleep? STOP Results Negative 04/12/25 11:13 QUESTION #5 FULL TEXT : Do you snore loudly (louder than talking or can be heard through closed doors)? 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 Specify any problems Hx of Preganancy in last 3 N/A 04/12/25 11:13 Months Nurse Filling Out Transfusion NBUCHER 04/12/25 11:13 & Questions: Date: 04/12/25 04/12/25 11:13 Time: 11:14 04/12/25 11:13 Patient unable to answer at this time (ie. confused, unrespo /Reproduction History /Reproductive History - voice network administrator: /Reproductive Hx- voice network administrator Hx Now Gestational Age (in weeks): EDC: Hx Hx Para Hx Section SAB No 04/12/25 11:13 Active Medications Active Medications: Current Medications Generic Name Dose Route Start Last Admin Trade Name Freq PRN Reason Stop Dose Admin Lactated Ringer's 1,000 mls @ 15 mls/hr 04/15/25 07:30 04/15/25 07:46 IV 15 mls/hr .Q48H ZEENAT Administration PFSH Medical History Wears hearing aid Wears glasses MRSA infection Cancer Alcohol use Open neck wound Thyroid disease Dietary restriction Former smoker Soft tissue radionecrosis Encounter for chemotherapy management Thrush, oral Sleep disturbance Cellulitis 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 peg tube removed Anemia Cancer related pain 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 cell carcinoma lt neck Hypertension Mass of left side of neck Difficulty swallowing Home Medications Medication Instructions Recorded Last Taken Type albuterol sulfate 1.25 mg/3 mL 1.25 mg (3 mL) inhalation Q4H PRN 12/10/21 Unknown Rx solution for nebulization bronchospasm #90 mL amlodipine 5 mg tablet 5 mg PO DAILY bp 01/23/22 04/14/25 History sodium chloride 1,000 mg soluble 3 g PO BID #60 tabs 01/25/22 04/14/25 Rx tablet nystatin 100,000 unit/mL oral 1 ml PO Q6H PRN mouth irritation 02/14/22 Unknown History suspension oxycodone 5 mg tablet 5 mg PO BID PRN pain 05/23/22 04/15/25 History Levothyroxine 100 mcg PO DAILY thyroid 01/31/23 04/15/25 History folic acid 400 mcg tablet 0.4 mg PO DAILY 09/15/24 04/14/25 History cholecalciferol (vitamin D3) 50 50 mcg PO DAILY 04/12/25 04/14/25 History mcg (2,000 unit) capsule (Vitamin D3) mecobalamin (vitamin B12) 1,000 1,000 mcg PO DAILY 04/12/25 04/14/25 History mcg chewable tablet pentoxifylline 400 mg 400 mg PO TID 04/12/25 04/14/25 History tablet,extended release pilocarpine HCl 5 mg tablet 5 mg PO TID 04/12/25 04/14/25 History Allergy/AdvReac Type Severity Reaction Status Date / Time No Known Allergies Allergy Verified 04/15/25 07:36 Family History Mother CVA (cerebral vascular accident) Surgical History History of esophagogastroduodenoscopy (EGD) History of mandibular surgery Hx of tonsillectomy History of removal of Port-a-Cath s/p port placement (~01/26/19) S/P percutaneous endoscopic gastrostomy (PEG) tube placement (~01/26/19) history of biopsy neck Social History Smoking Status: Former smoker quit date: 09/16/21 Tobacco: How many years used: 30 how long ago did patient quit smokin-4 months ago second hand exposure: Yes alcohol intake: former details: August 2021 substance use type: does not use diet: other well-balanced diet: other details: on a soft food diet, hasn't used feeding tube since early October 2022 seatbelt use: sometimes do you feel safe at home: Yes Review of Systems (Anesthesia) ROS Narrative System reviewed and no additional complaints, except as documented.
[2025-04-15] MEDS: 0.9% Normal Saline (Pres. free 10 ML Vial (08:44)
--- NOTE | 2025-04-15 08:57 | OP.EGD_ITS ---
Patient Name: Dread Jama Procedure Date: 04/15/2025 8:26 AM Date of : 1960 Age: 64 Procedure: Upper GI endoscopy Indications: Dysphagia Providers: Elliott Akhtar DO Referring MD: Yari Santillan Medicines: Monitored Anesthesia Care Patient Profile: This is a 64 year old male. Refer to note in patient chart for documentation of history and physical. Patient has symptoms of dysphagia with both liquids and solids. Complications: No immediate complications. Procedure: Pre-Anesthesia Assessment: - Prior to the procedure, a History and Physical was performed, and patient medications and allergies were reviewed. The patient is competent. The risks and benefits of the procedure and the sedation options and risks were discussed with the patient. All questions were answered and informed consent was obtained. Patient identification and proposed procedure were verified by the physician in the pre-procedure area. Mental Status Examination: alert and oriented. Airway Examination: normal oropharyngeal airway and neck mobility. Respiratory Examination: clear to auscultation. CV Examination: normal. Prophylactic Antibiotics: The patient does not require prophylactic antibiotics. Prior Anticoagulants: The patient has taken no anticoagulant or antiplatelet agents except for NSAID medication. ASA Grade Assessment: II - A patient with mild systemic disease. After reviewing the risks and benefits, the patient was deemed in satisfactory condition to undergo the procedure. The anesthesia plan was to use monitored anesthesia care (MAC). Immediately prior to administration of medications, the patient was re-assessed for adequacy to receive sedatives. The heart rate, respiratory rate, oxygen saturations, blood pressure, adequacy of pulmonary ventilation, and response to care were monitored throughout the procedure. The physical status of the patient was re-assessed after the procedure. After obtaining informed consent, the endoscope was passed under direct vision. Throughout the procedure, the patient's blood pressure, pulse, and oxygen saturations were monitored continuously. The Endoscope was introduced through the mouth, and advanced to the second part of duodenum. The upper GI endoscopy was accomplished without difficulty. The patient tolerated the procedure well. Scope In: 8:40:45 AM Scope Out: 8:51:57 AM Total Procedure Duration Time 0 hours 11 minutes 12 seconds Findings: One benign-appearing, intrinsic severe stenosis was found 18 to 24 cm from the incisors. This stenosis measured 5 mm (inner diameter) x 6 cm (in length). The stenosis was traversed after dilation. A guidewire was placed and the scope was withdrawn. Dilation was performed with a Savary dilator with no resistance at 51 Fr. The dilation site was examined following endoscope reinsertion and showed moderate improvement in luminal narrowing. Estimated blood loss: none. One benign-appearing, intrinsic moderate (circumferential scarring or stenosis; an endoscope may pass) stenosis was found 20 to 25 cm from the incisors. The stenosis was traversed. Area was successfully injected with 100 units botulinum toxin. The entire examined stomach was normal. No gross lesions were noted in the entire examined duodenum. Impression: - Benign-appearing esophageal stenosis. Dilated. - Benign-appearing esophageal stenosis. Injected with botulinum toxin. - Normal stomach. - No gross lesions in the entire examined duodenum. - No specimens collected. Recommendation: - Discharge patient to home. - Resume previous diet. - Continue present medications. Procedure Code(s): --- Professional --- 12343, Esophagogastroduodenoscopy, flexible, transoral; with insertion of guide wire followed by passage of dilator(s) through esophagus over guide wire 41548, 59,51, Esophagogastroduodenoscopy, flexible, transoral; with directed submucosal injection(s), any substance CPT copyright 2021 [employer]. All rights reserved. The codes documented in this report are preliminary and upon [employer] mainframe systems programmer review may be revised to meet current compliance requirements. Elliott Akhtar DO 04/15/2025 8:56:45 AM This report has been signed electronically. Number of Addenda: 0 Note Initiated On: 04/15/2025 8:26 AM
--- NOTE | 2025-04-15 08:57 | OP.CCLET_ITS ---
04/15/2025 Yari Santillan Re : Upper GI endoscopy procedure for Dread Jama Dear Jack This procedure was performed on March. My impressions and recommendations are as follows: Impressions : - Benign-appearing esophageal stenosis. Dilated. - Benign-appearing esophageal stenosis. Injected with botulinum toxin. - Normal stomach. - No gross lesions in the entire examined duodenum. - No specimens collected. Recommendations : - Discharge patient to home. - Resume previous diet. - Continue present medications. My findings are described in the full procedure note, which is enclosed. If I can be of further assistance, please feel free to contact me at . Sincerely, Elliott Akhtar, 04/15/2025 8:56:45 AM This report has been signed electronically.
--- NOTE | 2025-04-15 09:01 | PCM.POST.ANE ---
Anesthesia: Postop Eval I Current Vital Signs Temperature: 97.9 F Pulse Rate: 100 Blood Pressure: 87/59 Respiratory Rate: 16 Pulse Ox: 100 Oxygen Delivery Method: Room Air Assessment Airway patent: Yes Spontaneous unlabored respirations: Yes Mental status: Asleep nausea: No Vomiting: No Anesthesia Complication: No Fluid Hydration Crystalloid volume administer (ml): 300 Total IV fluid infused: 300 Progress Note Anesthesia document: Postop Eval 1 completed: Yes
--- NOTE | 2025-04-15 10:25 | PCM.POSTANE2 ---
Anesthesia Postop Eval I Sum Postop Eval Completion status Anesthesia document: Postop Eval 1 completed: Yes Anesthesia Postop Eval I Summary Anesthesia Postop Eval I Summary: Anesthesia Postop Eval I: Assessment Summary Airway patent Yes 04/15/25 09:02 [email or web address] Spontaneous unlabored Yes 04/15/25 09:02 [email or web address] respirations Mental status Asleep 04/15/25 09:02 [email or web address] nausea No 04/15/25 09:02 [email or web address] Vomiting No 04/15/25 09:02 [email or web address] Anesthesia Postop Eval I: Fluid Summary Crystalloid volume administer 300 04/15/25 09:02 [email or web address] (ml) Colloids volume administered ( ml) Blood Product volume administered (ml) Total IV fluid infused 300 04/15/25 09:02 [email or web address] Anesthesia Postop Eval I: Summary Notes Anesthesia Complication No 04/15/25 09:02 [email or web address] Anesthesia Complication Comment: Post-operative progress note Anesthesia: Postop Eval II Evaluation Mental status: Awake Pain Level: 1 nausea: No Vomiting: No Complications Anesthesia Complication: No
== END 2025-04-15 09:37 | disposition home or self-care (01) ==
LOC: EN 07:13 → AC 07:17
PROVIDERS: PCP Nurse Practitioner Family; Referring Provider Nurse Practitioner Family; Visit Provider Internal Medicine Gastroenterology
PROC: 0DJ08ZZ Inspection of Upper Intestinal Tract, Via Natural or Artificial Opening Endoscopic (ICD-10-PCS; CPT 43235; principal; 2025-04-15 08:10)
DX: R13.19 Other dysphagia (principal); Z93.1 Gastrostomy status; Z92.3 Personal history of irradiation; Z87.891 Personal history of nicotine dependence; Z90.02 Acquired absence of larynx; I10 Essential (primary) hypertension; K22.2 Esophageal obstruction; T66.XXXA Radiation sickness, unspecified, initial encounter; Z79.899 Other long term (current) drug therapy; Z85.89 Personal history of malignant neoplasm of other organs and systems
CPT/HCPCS: 43248; 43236; A4216; C1769; J0585; J2405

== ENCOUNTER 2025-05-14 10:00 | Outpatient (RCR) | payer MEDICARE, OTHER, SELFPAY ==
[2022-01-31 09:09] VITALS: BMI 22.6
--- NOTE | 2024-03-17 12:44 | HP.SP.EVAL ---
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 From 02/10/2019 – 03/25/2019 he received definitive chemoradiation therapy. 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 11/07/2021: PEG tube placement, tracheostomy, composite resection of oral cavity, excision of skin and soft tissue, segmental mandibulectomy, right selective neck dissection and left neck exploration for vessels. Reconstruction was thigh free flap and had complex neck closure with split thickness skin graft. Trach was removed following surgery on 12/05/2021 with the trach re-inserted due to difficulty breathing when lying flat. Pt has followed with OP ST during and after radiation treatment. Most recent MBSS 08/15/23 recommended moist puree textures / thin liquids with strict aspiration precautions and GI consult. Of note, he participated in myofascial release in junction with oropharyngeal strengthening and neck ROM exercises from 08/2023-10/2023 with improvements in swallowing, inlcuding advancing diet from purees to foods with soft, solid lumps (soups with small lumps), and improved neck ROM (L head rotation improved from 16 degrees to 37 degrees, R head rotation improved from 19 degrees to 35 degrees). Currently, he reports increased difficulty swallowing pills with some improvement s/p recent botox injection and dialtion of esophageal stenosis by GI during EGD 02/20/24. He also reports sensation of decreased neck ROM and increased stiffness of neck. Smoking Status: Former smoker Pain Is pain an issue with your current prescribed condition?: No Personal Preferred language: Wolof Patient Allergies Allergies Allergies: Allergies No Known Allergies Allergy (Verified 02/20/24 05:48) Subjective Dysphagia Symptoms Reported Symptoms/Problems with: Difficulty Swallowing Solids, Difficulty Swallowing Pills and Xerostomia Other: Coughs phlegm tinged with drinks from trach daily Current Diet Solids Current Diet: Minced Other: Soft soups blended with small lumps Current Diet Liquids Current Liquids: Thin Comments Subjective reports: -: Mild-severe xerostomia managed by biotene spray and hydrating. Taste WNL. No odynophagia. Drinks tube feeding supplements (5-6 cartons) - AUTOMOTIVE ELECTRICIAN HELPER recommended commissioner public works consult to discuss oral supplements. He is concerned Ensure is too expensive, but he does buy it occasionally. Pt agreeable to commissioner public works consult. Oral care 3-4X daily. No respiratory infection. Objective Dysphagia Administered by Administered by: Self Thin Liquids Administred via: Cup Oral Transit: Delay > 1 seconds Bolus clearance: fully cleared Cough: none observed/unable to assess Pharyngeal phase: elevation incomplete Patient Report: Pt reports not much coughing during his eating/drinking. Comments: Difficult to palpate laryngeal elevation given fibrosis of anterior neck. Today, he trialed thin water via cup with independent use of single, small sips, multiple swallows with no overt s/s of aspiration. Pureed Administered via: Spoon Oral Preparation: WNL Oral Transit: Delay > 1 seconds Bolus clearance: significant clearance/minimal residue Cough: none observed/unable to assess Pharyngeal phase: elevation incomplete Comments: Difficult to palpate laryngeal elevation given fibrosis of anterior neck. No overt s/s of aspiration consuming full serving of applesauce via tsp bites. Swallowing Impairment Contributing Factors to Swallowing Impairment: Mastication Inefficiency, Delayed Swallow Initiation and Reduced Laryngeal Excursion Impact Impact on Safety & Functioning: Risk for Aspiration and Risk for Inadequate Nutrition/Hydration Recommendations Modified Barium Swallow/Cookie Swallow Recommended: Yes Swallowing Treatment: Yes Diet Texture Recommendations Solids: Minced & Moist (Level 5, Mechanical Soft) Liquids: Thin (Level 0) [place] free water Protocol: Yes Other: Railroad Design Consultant Consult - AUTOMOTIVE ELECTRICIAN HELPER informed Dr. Verito Woody Other: Oral care throughout the day, including before and after every meal. Compensatory Strategies: Liquid by Teaspoon Only (Cough and re-swallow after EVERY sip), Slow Rate, Multiple Swallows, Alternate bites/solids and sips/liquids, Sitting upright and Remain sitting upright for 30 minutes after PO intake. Results Swallowing Within Normal Limits: Yes Swallowing Diagnosis: Oropharyngeal Phase Dysphagia (R13.12) Severity: Moderate Subjective Oral Motor Subjective Patient Reports: Drooling Comments Comments: No oral motor concerns other than fluctuating swelling in cheeks, which impacts his ability to close and open his jaw. He can never make his gums touch, which impacts his ability to chew. AUTOMOTIVE ELECTRICIAN HELPER recommended considering seeing a dentist about placement of upper dentures. Lower dentures are not possible s/p FOM resection. Objective Oral Motor Oral Status Dentition: Missing Teeth Additional: FOM resection unable to have lower dentures Labial Impairment: Moderate Closure: Drooling Pucker: Moderate Retraction: WFL Alternating Pucker/Retraction: Mild Labial Comments Comments: Incomplete labial seal Lingual Impairment: Mild Protrusion: Mild Retraction: Mild Lateralization: Mild Lingual Comments Comments: Mild generalized weakness Jaw Impairment: Moderate Opening: Mild Closing: Moderate Opening Measurement: 42mm measured lip to lip Oral Motor Comments Comments: Neck ROM: 27 degrees L head rotation, 28 degrees R head rotation, which worsened since discharge from OP ST on 11/04/23 (37 degrees L head rotation, 35 degrees R head rotation). Respiratory Status Respiratory Status: Trach Swallowing Performance Scale Swallowing Performance Scale Swallowing Performance Scale Result: 5 Moderate Reference: Neuro-QoL instrument Radiation Oncology Patient FOIS Functional Oral Intake Scale Total oral diet with multiple consistencies, but requiring special preparation or compensations: Level 5 Plan Plan Plan: Will recommend OP dysphagia treatment to instruct and provide myofascial release in junction with oropharyngeal exercise program and neck ROM exercise program as the patient is reporting increased difficulty swallowing medication and he has significantly decreased neck ROM concerning for worsening fibrosis s/p chemoradiation treatment. Without skilled ST services, he is at risk for worsening dysphagia, aspiration risk, and weight loss. Dr. Sellers has cleared the patient for pariticipation in continued myofascial release in junction with oropharyngeal and neck ROM exercises. Recommendations Treatment Warranted: Yes Treatment Warranted: Dysphagia Comment: Repeat MBSS 07/2024 unless increased concern for aspiration prior to this planned MBSS. Progress Prognosis: Good Frequency Frequency: 2-3x /Week Additional (Frequency): 3X/week for myofascial release in junction with oropharyngeal exercises and neck ROM exercises Duration: 2-4 Months Goals that are Established Determination:: Goals will be added/modified as deemed necessary and appropriate. Therapy will be discontinued when results of re-evaluation indicate therapy is no longer needed or lack of progress has been documented. Goal #1-5 Goal #1: The patient will consume least restrictive diet textures without overt s/s of aspiration with minimal verbal cues for use of compensatory strategies to decrease risk for aspiration. Goal #2: The patient will complete neck ROM exercises in junction with myofascial release to improve and maintain neck mobility for optimal swallow functioning (X10 repetitions, 3-5X daily). Goal #3: The patient will complete an oropharyngeal exercise program in junction with myofascial release to improve and maintain optimal swallow functioning s/p chemoradiation treatment to improve and maintain strength, ROM, and coordination of swallowing mechanism (X10 repetitions, 3-5X daily). Education Patient has Indicated that the Following Identified Educational Needs: None The Patient has indicated that they have no educational or learning abilities that may effect their care.: Yes Patient Instruction Patient Education: Diagnosis, Treatment Plan, Goals, Safety Precautions, Diet Level and Home Exercise Program Person Taught: Patient Teaching Method: Discussion Response to teaching: Verbalize understanding and Reinforcement needed
--- NOTE | 2024-04-15 13:35 | NS ---
04/15/24: Called patient to follow-up about eating. Left voicemail for patient to call back. Koki Prince RDN, LD
--- NOTE | 2024-06-24 13:21 | SP.MBSS_ITS ---
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 Medical History: The pt is a 64-year-old male diagnosed with clinical stage NOREEN (cTx cN2b M0) p16 negative SCC of unknown primary with left neck adenopathy in level 2-[address] neck and chest (12/17/2018), ultrasound-guided FNA of the left neck mass (12/22/2018), PET scan (01/05/2019), triple endoscopy with targeted left tonsillectomy (01/30/2019). From 02/10/2019 – 03/25/2019 he received definitive chemoradiation therapy. 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 11/07/2021: PEG tube placement, tracheostomy, composite resection of oral cavity, excision of skin and soft tissue, segmental mandibulectomy, right selective neck dissection and left neck exploration for vessels. Reconstruction was thigh free flap and had complex neck closure with split thickness skin graft. Trach was removed following surgery on 12/05/2021 with the trach re-inserted due to difficulty breathing when lying flat. Pt has followed with OP ST during and after radiation treatment. Most recent MBSS 08/15/23 recommended moist puree textures / thin liquids with strict aspiration precautions and GI consult. Of note, he participated in myofascial release in junction with oropharyngeal strengthening and neck ROM exercises from 08/2023-10/2023 with improvements in swallowing, including advancing diet from purees to foods with soft, solid lumps (soups with small lumps), and improved neck ROM (L head rotation improved from 16 degrees to 37 degrees, R head rotation improved from 19 degrees to 35 degrees). He returned to dysphagia therapy 06/19/2024 for continued myofascial release in junction with oropharyngeal strengthening and neck ROM exercises. He is participating in this treatment 3X/week. Currently, he reports increased difficulty swallowing pills with some improvement s/p recent botox injection and dilation of esophageal stenosis by GI during EGD 02/20/24. He is planned for annual MBSS to re-assess swallow function, aspiration risk s/p chemoradiation for cancer hx above. Current Diet Ordered: Liquidized purees (some small lumps per pt) / Thin Dentition: Edentulous Mental Status: WNL Respiratory Status: Oxygenating on Room Air (Trach) Penetration-Aspiration Scale Penetration-Aspiration Scale: OBJECTIVE ASSESSMENT OF SWALLOW FUNCTION (QUANTITATIVE – PER TRIAL): PENETRATION / ASPIRATION SCALE (SENIOR): 1 = does not enter airway 2 = enters airway/above vocal folds/ejected 3 = enters airway/above vocal folds/not ejected 4 = enters airway/contacts vocal folds/ejected 5 = enters airway/contacts vocal folds/not ejected 6 = enters airway/below vocal folds/ejected 7 = enters airway/below vocal folds/not ejected despite effort 8 = enters airway/below vocal folds/no effort VIDEOFLOROSCOPIC SCALE SCORE (SENIOR): Grade I = aspiration of material that has penetrated into the laryngeal vestibule, intact cough reflex Grade II = aspiration < 10 % of the bolus, intact cough reflex Grade III = aspiration of < 10 % of the bolus, reduced cough reflex or aspiration of > 10 % of the bolus, intact cough reflex Grade IV = aspiration of > 10 % of the bolus, reduced cough reflex Penetration-Aspiration Scale Score Thin Liquid via teaspoon: Result: 3= enters airways/above vocal folds/not ejected Thin Liquid via sequential sips: cup: Result: 3= enters airways/above vocal folds/not ejected [place] Thick Liquid via small single sip: cup: Result: 3= enters airways/above vocal folds/not ejected Comment: SILENT post prandial aspiration of thin liquids from previous trial Honey Thick Liquid via small single sip: cup: Result: 3= enters airways/above vocal folds/not ejected Applesauce w/ Honey thick barium to liquidize (50/50): Result: 3= enters airways/above vocal folds/not ejected Thin Liquid via small single sip: cup: Result: 3= enters airways/above vocal folds/not ejected Thin Liquid via sequential sips: cup Trial 2: Result: 7= enters airways/below vocal folds/not ejected despite effort Comment: Cued cough and re-swallow = somewhat effective. Oral Phase Labial Seal: Escape beyond mid-chin Tongue Control During Bolus Hold: Posterior escape of less than half of bolus Bolus Transport/Lingual Motion: Delayed initiation of tongue motion Oral Residue: Residue collection on oral structures Pharyngeal Phase Initiation of Pharyngeal Swallow: Bolus head in pyriforms Soft Palate Elevation: Trace column of contrast/air between soft palate and pharyngeal wall Laryngeal Elevation: Partial superior movement thyroid cart/partial apprx aryt- epig petiole Anterior Hyoid Excursion: No anterior movement (very minimal) Epiglottic Movement: No inversion Laryngeal Vestibule Closure at Height of Swallow: Incomplete; narrow column of air/contrast in laryngeal vestibule Pharyngeal Stripping Wave: Present - diminished (minimal) Pharyngoesophageal Segment Opening: Minimal distension and minimal duration; marked obstruction of flow Tongue Base Retraction: Wide column of contrast between tongue base & post. pharyngeal wall Pharyngeal Residue: Majority of contrast within or on pharyngeal structures Esophageal Phase Esophageal Clearance: Esophageal retention (trace retention in UES, complete clearance during esophageal screens (honey and sequential thin 2)) Diagnosis/Impression Diagnosis: Severe oropharyngeal dysphagia R13.12 Impression: The oral phase is primarily marked by... -Delayed initiation of tongue motion for AP transport. -Decreased bolus control w/ loss of <1/2 the bolus to the pyriforms prior to swallow onset. -Did not assess mastication as he is not appropriate for solid trials due to deficits in pharyngeal motility, edentulous status, and bolus control. The pharyngeal phase is primarily marked by... -Severely decreased tongue base retraction, pharyngeal stripping wave (minimal to no movement), and UES opening/duration resulting in moderate pharyngeal residues requiring 3-4 swallows to mostly clear. -Decreased airway closure due to minimal anterior hyoid excursion and decreased laryngeal elevation. -Consistent laryngeal penetration across all consistencies that does not fully eject after the swallow. Silent and overt s/s of aspiration observed w/ thin liquids consumed sequentially. Cough and re-swallow is somewhat effective in decreasing aspiration risk. The patient must nourish/hydrate via thin liquids and liquidized purees due to poor pharyngeal motility. COMFORT ADVISOR recommends using multiple swallows w/ cough and re-swallow immediately following sips (single or sequential). Recommendations Diet: Puree Textures (Finely blended, liquidized purees) and Thin Liquids Comment: Frequent oral care, Cough and re-swallow after each sip Compensatory Strategies: Small Bites, Multiple Swallows, Alternate bites/solids and sips/liquids, Sitting upright and Remain sitting upright for 30 minutes after PO intake Recommend Repeat Modified Barium Swallow: Yes Comment: Repeat MBS study in 6-12 months to monitor swallow function as the patient is at risk for worsening dysphagia and aspiration risk s/p chemoradiation treatment. Need for Skilled Speech Therapy Services: Yes Comment: Continue with current OP ST POC for oropharyngeal strengthening and neck ROM exercises in junction w/ myofascial release. Education Completed: 1. Described result of evaluation. Status Active ST Patient: Active Contact Information [facility] Speech Therapy:: Latosha Boyer M.A. [facility] Speech-Language Pathologist [facility] [address] [place] [address] [email or web address] [phone]
--- NOTE | 2024-07-17 15:25 | HP.SPREEV_ITS ---
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 From 02/10/2019 – 03/25/2019 he received definitive chemoradiation therapy. 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 11/07/2021: PEG tube placement, tracheostomy, composite resection of oral cavity, excision of skin and soft tissue, segmental mandibulectomy, right selective neck dissection and left neck exploration for vessels. Reconstruction was thigh free flap and had complex neck closure with split thickness skin graft. Trach was removed following surgery on 12/05/2021 with the trach re-inserted due to difficulty breathing when lying flat. Dysphagia History: Pt has followed with OP ST during and intermittently after radiation treatment to manage severe oropharyngeal dysphagia. PEG tube was removed summer. He sustains himself fully on oral diet of liquidized purees / thin liquids. Pt has participated in 7 MBSS (06/26/2019, 03/30/2020, 01/08/2022, 04/13/2022, 06/15/2022, 08/05/2023, 06/24/2024). Most recent MBSS 06/24/224 revealed severe oropharyngeal dysphagia and recommended liquidized purees / thin liquids w/ use of recommended moist puree textures / thin liquids with frequent oral care and the following strategies: Cough and re-swallow after each sip, Small Bites, Multiple Swallows, Alternate bites/solids and sips/liquids, Sitting upright and Remain sitting upright for 30 minutes after PO intake. Hx of esophageal dysphagia managed by vp construction, Dr. Akhtar, s/p EGD w/ botox injection and esophageal dilation of esophageal stenosis 02/03/2024. He participated in OP ST for myofascial release in junction with oropharyngeal strengthening and neck ROM exercises from 08/2023-10/2023 with improvements in swallowing, including advancing diet from purees to foods with soft, solid lumps (soups with small lumps), and improved neck ROM (L head rotation improved from 16 degrees to 37 degrees, R head rotation improved from 19 degrees to 35 degrees). He returned to ST 03/17/2024 for continued dysphagia therapy for myofascial release in junction w/ neck ROM exercises due to pt reporting sensation of decreased neck ROM and increased stiffness of neck. Diagnosis Diagnosis: SCC of mandibular alveolar ridge C41.1 Pain Is pain an issue with your current prescribed condition?: No Personal Preferred language: Romanian Patient Allergies Allergies Allergies: Allergies No Known Allergies Allergy (Verified 05/13/24 11:44) Previous/Current Goals Goals 1-5 Previous Goal #1: The patient will consume least restrictive diet textures without overt s/s of aspiration with minimal verbal cues for use of compensatory strategies to decrease risk for aspiration. Goal 1 Status: Limited progress - Continued consumption of liquidized purees / thin liquids. Pt is well-aware of compensatory strategies to decrease risk for aspiration. He is completing oral care throughout his day to decrease risk for aspiration related illness. Previous Goal #2: The patient will complete neck ROM exercises in junction with myofascial release to improve and maintain neck mobility for optimal swallow functioning (X10 repetitions, 3-5X daily). Goal 2 Status: PROGRESSING - Currently, pt has neck ROM w/ left rotation at 40 degrees (improved 12 degrees since 03/19/2024 and right neck rotation at 38 degrees (improved 10 degrees from 03/19/2024). Previous Goal #3: The patient will complete an oropharyngeal exercise program in junction with myofascial release to improve and maintain optimal swallow functioning s/p chemoradiation treatment to improve and maintain strength, ROM, and coordination of swallowing mechanism (X10 repetitions, 3-5X daily). Goal 3 Status: PROGRESSING - During 07/03/2024 visit, the patient demonstrated the ability to complete Ara X72 reps, Rosalinda maneuver X38 reps, and effortful swallow X68 reps, while intermittently completing neck ROM exercises and while [employer] applied myofascial release. Swallowing Performance Scale Swallowing Performance Scale Swallowing Performance Scale Result: 5 Moderate Reference: Neuro-QoL instrument Radiation Oncology Patient FOIS Functional Oral Intake Scale Total oral diet with multiple consistencies, but requiring special preparation or compensations: Level 5 Other Other Summary of Progress from current POC: -: He has participated in 17 visits during this POC with implementation of myofascial release and jaw massage in junction w/ oropharyngeal strengthening, neck ROM, and jaw ROM exercise programs. The patient has maintained consumption of liquidized purees / thin liquids. He has demonstrated progress in neck ROM w/ left rotation at 40 degrees (improved 12 degrees since 03/19/2024 and right neck rotation at 38 degrees (improved 10 degrees from 03/19/2024). Pt has also improved jaw ROM (currently 43mm) by 2 degrees since 07/02/2024 w/ jaw stretching, massage, and myofascial as he recently reported sensation of increased jaw tightness. Plan Plan Plan: [employer] is recommending additional dysphagia therapy services for continued myofascial release in junction w/ neck ROM exercises, oropharyngeal exercises, and jaw ROM exercises as the patient has been demonstrating excellent progress towards increasing neck ROM, as well as jaw ROM. Increasing neck ROM indicates improved mobility of his anterior neck, which is beneficial to maintaining swallow function given significant radiation fibrosis secondary to hx of SCC of unknown primary with left neck adenopathy s/p left tonsillectomy (01/30/2019) and definitive chemoradiation therapy (02/10/2019 – 03/25/2019), as well as SCC of the FOM s/p composite resection/reconstruction (11/07/2021) and reirradiation with concurrent chemotherapy (12/20/2021 – 02/06/2022). [employer] discussed recommendations w/ radiation oncologist, Dr. Sellers, who cleared the patient for additional myofascial release for management of chronic dysphagia. The patient is at high risk for progressively worsening dysphagia given his extensive hx of head and neck cancer w/ chemoradiation treatment 2X (mentioned above). Additionally, this patient is very motivated and has excellent participation in therapy and excellent follow-though w/ home exercise programs. Recommendations Treatment Warranted: Yes Treatment Warranted: Dysphagia Progress Prognosis: Good Frequency Additional (Frequency): 3-4X/week Duration: 2-4 Months Goals that are Established Determination:: Goals will be added/modified as deemed necessary and appropriate. Therapy will be discontinued when results of re-evaluation indicate therapy is no longer needed or lack of progress has been documented. Goal #1-5 Goal #1: The patient will consume least restrictive diet textures without overt s/s of aspiration with 90% acc with independent use of strategies to decrease risk for aspiration. Goal #2: The patient will complete jaw strength, coordination, and ROM exercises in junction w/ jaw massage and myofascial release s/p chemoradiation treatment to improve mastication abilities (X10 repetitions, 3-5X daily). Goal #3: The patient will complete neck ROM exercises in junction with myofascial release to improve and maintain neck mobility for optimal swallow functioning (X20 repetitions, 3-5X daily). Goal #4: The patient will complete an oropharyngeal exercise program in junction with myofascial release to improve and maintain optimal swallow functioning s/p chemoradiation treatment to improve and maintain strength, ROM, and coordination of swallowing mechanism (X20 repetitions, 3-5X daily) Education Patient has Indicated that the Following Identified Educational Needs: None The Patient has indicated that they have no educational or learning abilities that may effect their care.: Yes Patient Instruction Patient Education: Diagnosis, Treatment Plan, Goals, Safety Precautions, Diet Level and Home Exercise Program Person Taught: Patient Teaching Method: Discussion and Demonstration Response to teaching: Return Demonstration, Verbalize Understanding, Reinforcement Needed and Has Prior Knowledge
--- NOTE | 2024-09-22 12:42 | HP.SP.REEV ---
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 From 02/10/2019 – 03/25/2019 he received definitive chemoradiation therapy. 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 11/07/2021: PEG tube placement, tracheostomy, composite resection of oral cavity, excision of skin and soft tissue, segmental mandibulectomy, right selective neck dissection and left neck exploration for vessels. Reconstruction was thigh free flap and had complex neck closure with split thickness skin graft. Trach was removed following surgery on 12/05/2021 with the trach re-inserted due to difficulty breathing when lying flat. Dysphagia History: Pt has followed with OP ST during and intermittently after radiation treatment to manage severe oropharyngeal dysphagia. PEG tube was removed summer. He sustains himself fully on oral diet of liquidized purees / thin liquids. Pt has participated in 7 MBSS (06/26/2019, 03/30/2020, 01/08/2022, 04/13/2022, 06/15/2022, 08/05/2023, 06/24/2024). Most recent MBSS 06/24/224 revealed severe oropharyngeal dysphagia and recommended liquidized purees / thin liquids w/ use of recommended moist puree textures / thin liquids with frequent oral care and the following strategies: Cough and re-swallow after each sip, Small Bites, Multiple Swallows, Alternate bites/solids and sips/liquids, Sitting upright and Remain sitting upright for 30 minutes after PO intake. Hx of esophageal dysphagia managed by brick burner head, Dr. Akhtar, s/p EGD w/ botox injection and esophageal dilation of esophageal stenosis 02/03/2024. He participated in OP ST for myofascial release in junction with oropharyngeal strengthening and neck ROM exercises from 08/2023-10/2023 with improvements in swallowing, including advancing diet from purees to foods with soft, solid lumps (soups with small lumps), and improved neck ROM (L head rotation improved from 16 degrees to 37 degrees, R head rotation improved from 19 degrees to 35 degrees). He returned to ST 03/17/2024 for continued dysphagia therapy for myofascial release in junction w/ neck ROM exercises due to pt reporting sensation of decreased neck ROM and increased stiffness of neck. He has participated in 23 dysphagia treatment sessions during this POC. Diagnosis Diagnosis: SCC of mandibular alveolar ridge C41.1 Pain Is pain an issue with your current prescribed condition?: No Personal Preferred language: Amharic Patient Allergies Allergies Allergies: Allergies No Known Allergies Allergy (Verified 09/15/24 09:19) Previous/Current Goals Goals 1-5 Previous Goal #1: The patient will consume least restrictive diet textures without overt s/s of aspiration with 90% acc with independent use of strategies to decrease risk for aspiration. Goal 1 Status: Limited progress - Continued consumption of liquidized purees / thin liquids. Pt is well-aware of compensatory strategies to decrease risk for aspiration. He continues completing oral care throughout his day to decrease risk for aspiration related illness. Of note, his xerostomia has improved and he no longer requires medication to manage xerostomia. Previous Goal #2: The patient will complete jaw strength, coordination, and ROM exercises in junction w/ jaw massage and myofascial release s/p chemoradiation treatment to improve mastication abilities (X10 repetitions, 3-5X daily). Goal 2 Status: PROGRESSING - Pt has also improved jaw ROM (currently 44mm) by 3 degrees since 07/02/2024 w/ jaw stretching, massage, and myofascial release. Previous Goal #3: The patient will complete neck ROM exercises in junction with myofascial release to improve and maintain neck mobility for optimal swallow functioning (X20 repetitions, 3-5X daily). Goal 3 Status: PROGRESSING - Currently, pt has neck ROM w/ left rotation at 41 degrees (improved 13 degrees since 03/19/2024 and right neck rotation at 43 degrees (improved 15 degrees from 03/19/2024). Previous Goal #4: The patient will complete an oropharyngeal exercise program in junction with myofascial release to improve and maintain optimal swallow functioning s/p chemoradiation treatment to improve and maintain strength, ROM, and coordination of swallowing mechanism (X20 repetitions, 3-5X daily) Goal 4 Status: PROGRESSING - During 09/18/2024 visit, the patient demonstrated the ability to complete Effortful swallows X78 reps, Rosalinda X28 reps, and Ara X75 reps, while intermittently completing neck ROM exercises and while BOOKKEEPING TEACHER applied myofascial release. Swallowing Performance Scale Swallowing Performance Scale Swallowing Performance Scale Result: 5 Moderate Reference: Neuro-QoL instrument Radiation Oncology Patient FOIS Functional Oral Intake Scale Total oral diet with multiple consistencies, but requiring special preparation or compensations: Level 5 Other Other Summary of Progress from current POC: -: He has participated in 23 visits during this POC with implementation of myofascial release and jaw massage in junction w/ oropharyngeal strengthening, neck ROM, and jaw ROM exercise programs. The patient has maintained consumption of liquidized purees / thin liquids. He has demonstrated progress in neck ROM w/ left rotation at 41 degrees (improved 13 degrees since 03/19/2024 and right neck rotation at 43 degrees (improved 15 degrees from 03/19/2024). Pt has also improved jaw ROM (currently 44mm) by 3 degrees since 07/02/2024 w/ jaw stretching, massage, and myofascial release. Plan Plan Plan: BOOKKEEPING TEACHER is recommending additional dysphagia therapy services for continued myofascial release in junction w/ neck ROM exercises, oropharyngeal exercises, and jaw ROM exercises as the patient has been demonstrating good progress towards increasing neck ROM, as well as jaw ROM. Increasing neck ROM indicates improved mobility of his anterior neck, which is beneficial to maintaining swallow function given significant radiation fibrosis secondary to hx of SCC of unknown primary with left neck adenopathy s/p left tonsillectomy (01/30/2019) and definitive chemoradiation therapy (02/10/2019 – 03/25/2019), as well as SCC of the FOM s/p composite resection/reconstruction (11/07/2021) and reirradiation with concurrent chemotherapy (12/20/2021 – 02/06/2022). BOOKKEEPING TEACHER discussed recommendations w/ radiation oncologist, Dr. Sellers, who cleared the patient for additional myofascial release for management of chronic dysphagia. The patient is at high risk for progressively worsening dysphagia given his extensive hx of head and neck cancer w/ chemoradiation treatment 2X (mentioned above). Additionally, this patient is very motivated and has excellent participation in therapy and excellent follow-though w/ home exercise programs. Recommendations Treatment Warranted: Yes Treatment Warranted: Dysphagia Comment: Annual MBSS recommended 05/2025 Progress Prognosis: Fair Frequency Additional (Frequency): 3-4X/week Duration: 4-6 Months Goals that are Established Determination:: Goals will be added/modified as deemed necessary and appropriate. Therapy will be discontinued when results of re-evaluation indicate therapy is no longer needed or lack of progress has been documented. Goal #1-5 Goal #1: The patient will consume least restrictive diet textures without overt s/s of aspiration with 90% acc with independent use of strategies to decrease risk for aspiration. Goal #2: The patient will complete jaw strength, coordination, and ROM exercises in junction w/ jaw massage and myofascial release s/p chemoradiation treatment to improve mastication abilities (X10 repetitions, 3-5X daily). Goal #3: The patient will complete neck ROM exercises in junction with myofascial release to improve and maintain neck mobility for optimal swallow functioning (X20 repetitions, 3-5X daily). Goal #4: The patient will complete an oropharyngeal exercise program in junction with myofascial release to improve and maintain optimal swallow functioning s/p chemoradiation treatment to improve and maintain strength, ROM, and coordination of swallowing mechanism (X20 repetitions, 3-5X daily) Education Patient has Indicated that the Following Identified Educational Needs: None The Patient has indicated that they have no educational or learning abilities that may effect their care.: Yes Patient Instruction Patient Education: Safety Precautions, Diet Level and Home Exercise Program Person Taught: Patient Teaching Method: Discussion and Demonstration Response to teaching: Return Demonstration, Verbalize Understanding and Has Prior Knowledge
--- NOTE | 2025-01-21 10:05 | HP.SP.REEV ---
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 From 02/10/2019 – 03/25/2019 he received definitive chemoradiation therapy. 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 He participated in additional chemoradiation therapy from 12/20/2021 – 02/06/2022. 11/07/2021: PEG tube placement, tracheostomy, composite resection of oral cavity, excision of skin and soft tissue, segmental mandibulectomy, right selective neck dissection and left neck exploration for vessels. Reconstruction was thigh free flap and had complex neck closure with split thickness skin graft. Trach was removed following surgery on 12/05/2021 with the trach re-inserted due to difficulty breathing when lying flat. Trach is chronic. Dysphagia History: Pt has followed with OP ST during and intermittently after radiation treatment to manage severe oropharyngeal dysphagia. PEG tube was removed summer. He sustains himself fully on oral diet of liquidized purees / thin liquids. Pt has participated in 8 MBSS (06/26/2019, 03/30/2020, 01/08/2022, 04/13/2022, 06/15/2022, 08/05/2023, 06/24/2024, 12/17/2024). Most recent MBSS 12/17/2024 revealed severe oropharyngeal dysphagia and recommended liquidized purees (ok for small, minced lumps) / thin liquids w/ recommendation for frequent oral care and the following strategies: Intermittent cough and re-swallow, Small Bites, Multiple Swallows, Alternate bites/solids and sips/liquids, Sitting upright and Remain sitting upright for 30 minutes after PO intake. Hx of esophageal dysphagia managed by social sciences research scientist, Dr. Akhtar, s/p EGD w/ botox injection and esophageal dilation of esophageal stenosis 02/03/2024. He participated in OP ST for myofascial release in junction with oropharyngeal strengthening and neck ROM exercises from 08/2023-10/2023 with improvements in swallowing, including advancing diet from purees to foods with soft, solid lumps (soups with small lumps), and improved neck ROM (L head rotation improved from 16 degrees to 37 degrees, R head rotation improved from 19 degrees to 35 degrees). He returned to OP ST 03/17/2024 for continued dysphagia therapy for myofascial release in junction w/ neck ROM exercises due to pt reporting sensation of decreased neck ROM and increased stiffness of neck. He has participated in 36 visits during this POC with implementation of myofascial release and jaw massage in junction w/ oropharyngeal strengthening, neck ROM, and jaw ROM exercise programs. The patient has progressed from full liquidized puree / thin liquid diet to liquidized purees with small lumps / thin liquids. He has demonstrated progress in neck ROM w/ left rotation at 42 degrees (improved 14 degrees since 03/19/2024 and right neck rotation at 43 degrees (improved 15 degrees from 03/19/2024). Pt has also improved jaw ROM (currently 43mm) by 2 degrees since 07/02/2024 w/ jaw stretching, massage, and myofascial release. Diagnosis Diagnosis: SCC of mandibular alveolar ridge C41.1 Pain Is pain an issue with your current prescribed condition?: No Personal Preferred language: Turkmen Patient Allergies Allergies Allergies: Allergies No Known Allergies Allergy (Verified 01/05/25 11:07) Previous/Current Goals Goals 1-5 Previous Goal #1: The patient will consume least restrictive diet textures without overt s/s of aspiration with 90% acc with independent use of strategies to decrease risk for aspiration. Goal 1 Status: GOAL MET. Previous Goal #2: The patient will complete jaw strength, coordination, and ROM exercises in junction w/ jaw massage and myofascial release s/p chemoradiation treatment to improve mastication abilities (X10 repetitions, 3-5X daily). Goal 2 Status: PROGRESSING - Currently 43mm of jaw opening measured from top to bottom lip. Previous Goal #3: The patient will complete neck ROM exercises in junction with myofascial release to improve and maintain neck mobility for optimal swallow functioning (X20 repetitions, 3-5X daily). Goal 3 Status: PROGRESSING - Continued participation in myofascial release w/ L and R head rotations and L and R head tilts. Previous Goal #4: The patient will complete an oropharyngeal exercise program in junction with myofascial release to improve and maintain optimal swallow functioning s/p chemoradiation treatment to improve and maintain strength, ROM, and coordination of swallowing mechanism (X20 repetitions, 3-5X daily) Goal 4 Status: PROGRESSING - Pt completes ~70-80 Effortful swallows, ~70-80 Ara, and ~30-40 Rosalinda in junction with myofascial release each session. He completes oropharyngeal exercises at home 3-4X/day. Swallowing Performance Scale Swallowing Performance Scale Swallowing Performance Scale Result: 5 Moderate Reference: Neuro-QoL instrument Radiation Oncology Patient FOIS Functional Oral Intake Scale Total oral diet with multiple consistencies, but requiring special preparation or compensations: Level 5 Plan Plan Plan: The patient has utilized his 12 authorized visits. WEIGHT REDUCING TECHNICIAN is completing this re-evaluation to request additional dysphagia visits to manage chronic severe oropharyngeal dysphagia for participation in myofascial release in junction w/ neck ROM exercises and oropharyngeal exercises. Of note, he can’t apply myofascial release techniques himself due to fine motor deficits of BL upper extremities. During the past 12 visits, he has demonstrated improved use of compensatory strategies to decrease risk for aspiration consuming his diet of thin liquids and liquidized purees w/ small lumps. He has improved jaw ROM by 2mm. He has also improved neck ROM, improving R head rotation by 5 degrees and L head rotation by 1 degree (limited ability to complete certain neck ROM exercises due to healing wound on anterior neck). He would benefit from ongoing dysphagia therapy to maintain his ability to consume a full oral diet. Given his hx of SCC of unknown primary with left neck adenopathy s/p chemoradiation therapy (02/10/2019 – 03/25/2019) and SCC of FOM FOM s/p composite resection and reconstruction (11/07/2021) and chemoradiation therapy (12/20/2021 – 02/06/2022) w/ chronic tracheostomy and current severe oropharyngeal dysphagia, the patient is at increased risk for worsening dysphagia and aspiration. Additionally, WEIGHT REDUCING TECHNICIAN is recommending upcoming voice evaluation and treatment to trial ATOS Tracoe PhonAssist 1 and Trachphone HMEs to address dysphonia as the patient is unable to tolerate his Passy Eliane Speaking Valve. Recommendations Treatment Warranted: Yes Treatment Warranted: Dysphagia Comment: Voice evaluation planned, as well. Order obtained. WEIGHT REDUCING TECHNICIAN is awaiting the patient to receive his prescribed ATOS TrachPhon and ATOS Tracoe PhonAssist 1. Progress Prognosis: Good Frequency Additional (Frequency): 3-5X/week Duration: 2-4 Months Goals that are Established Determination:: Goals will be added/modified as deemed necessary and appropriate. Therapy will be discontinued when results of re-evaluation indicate therapy is no longer needed or lack of progress has been documented. Goal #1-5 Goal #1: The patient will complete jaw strength, coordination, and ROM exercises in junction w/ jaw massage and myofascial release s/p chemoradiation treatment to improve mastication abilities (X10 repetitions, 3-5X daily). Goal #2: The patient will complete neck ROM exercises in junction with myofascial release to improve and maintain neck mobility for optimal swallow functioning (X20 repetitions, 3-5X daily). Goal #3: The patient will complete an oropharyngeal exercise program in junction with myofascial release to improve and maintain optimal swallow functioning s/p chemoradiation treatment to improve and maintain strength, ROM, and coordination of swallowing mechanism (X20 repetitions, 3-5X daily) Goal #4: The patient will participate in voice evaluation to set additional goals to POC as warranted. Education Patient has Indicated that the Following Identified Educational Needs: None The Patient has indicated that they have no educational or learning abilities that may effect their care.: Yes Patient Instruction Patient Education: Goals, Safety Precautions, Diet Level and Home Exercise Program Person Taught: Patient Teaching Method: Discussion Response to teaching: Verbalize Understanding and Has Prior Knowledge
--- NOTE | 2025-03-29 11:29 | HP.SPREEV_ITS ---
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 From 02/10/2019 – 03/25/2019 he received definitive chemoradiation therapy. 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 He participated in additional chemoradiation therapy from 12/20/2021 – 02/06/2022. 11/07/2021: PEG tube placement, tracheostomy, composite resection of oral cavity, excision of skin and soft tissue, segmental mandibulectomy, right selective neck dissection and left neck exploration for vessels. Reconstruction was thigh free flap and had complex neck closure with split thickness skin graft. Trach was removed following surgery on 12/05/2021 with the trach re-inserted due to difficulty breathing when lying flat. Trach is chronic. Dysphagia History: Pt has followed with OP ST during and intermittently after radiation treatment to manage severe oropharyngeal dysphagia. PEG tube was removed summer. He sustains himself fully on oral diet of liquidized purees / thin liquids. Pt has participated in 8 MBSS (06/26/2019, 03/30/2020, 01/08/2022, 04/13/2022, 06/15/2022, 08/05/2023, 06/24/2024, 12/17/2024). Most recent MBSS 12/17/2024 revealed severe oropharyngeal dysphagia and recommended liquid ized purees (ok for small, minced lumps) / thin liquids w/ recommendation for frequent oral care and the following strategies: Intermittent cough and re- swallow, Small Bites, Multiple Swallows, Alternate bites/solids and sips/liquids, Sitting upright and Remain sitting upright for 30 minutes after PO intake. Hx of esophageal dysphagia managed by metal die finisher, Dr. Akhtar, s/p EGD w/ botox injection and esophageal dilation of esophageal stenosis 02/03/2024. He participated in OP ST for myofascial release in junction with oropharyngeal strengthening and neck ROM exercises from 08/2023-10/2023 with improvements in swallowing, including advancing diet from purees to foods with soft, solid lumps (soups with small lumps), and improved neck ROM (L head rotation improved from 16 degrees to 37 degrees, R head rotation improved from 19 degrees to 35 degrees). He returned to OP ST 03/17/2024 for continued dysphagia therapy for myofascial release in junction w/ neck ROM exercises due to pt reporting sensation of decreased neck ROM, increased stiffness of neck, and worsening swallow function. He has participated in 41 visits during this POC with implementation of myofascial release and jaw massage in junction w/ oropharyngeal strengthening, neck ROM, and jaw ROM exercise programs. The patient has progressed from full liquidized puree / thin liquid diet to liquidized purees with small lumps / thin liquids. He has demonstrated progress in neck ROM w/ left rotation at 43 degrees (improved 15 degrees since 03/19/2024) and right neck rotation at 42 degrees (improved 14 degrees from 03/19/2024). Pt has also improved jaw ROM (currently 45mm) by 4 degrees since 07/02/2024 w/ jaw stretching, massage, and myofascial release. In the past 5 visits, the patient has improved 4 degrees in R head rotation (03/17/2025 - 38 degrees, 03/25/2025 - 42 degrees), 6 degrees in L head rotation (03/17/2025 - 37 degrees, 03/25/2025 - 43 degrees), and 1mm in jaw opening (03/17/2025 - 45mm, 03/25/2025 - 46mm). SECURITIES COUNSELOR is completing this re-evaluation to request additional dysphagia therapy visits as pt has reached his insurance end date for authorized visits. He missed 1 visit due to unexpected plans coming up. Diagnosis Diagnosis: SCC of mandibular alveolar ridge C41.1 Pain Is pain an issue with your current prescribed condition?: No Personal Preferred language: Polish Patient Allergies Allergies Allergies: Allergies No Known Allergies Allergy (Verified 02/02/25 09:31) Previous/Current Goals Goals 1-5 Previous Goal #1: The patient will complete jaw strength, coordination, and ROM exercises in junction w/ jaw massage and myofascial release s/p chemoradiation treatment to improve mastication abilities (X10 repetitions, 3-5X daily). Goal 1 Status: PROGRESSING - Pt has improved 1 degree in jaw ROM (03/17/2025 - 45mm, 03/25/2025 - 46mm). Of note, on 03/19/25 he achieved 48mm of jaw opening. Previous Goal #2: The patient will complete neck ROM exercises in junction with myofascial release to improve and maintain neck mobility for optimal swallow functioning (X20 repetitions, 3-5X daily). Goal 2 Status: PROGRESSING - Patient has improved 4 degrees in R head rotation (03/17/2025 - 38 degrees, 03/25/2025 - 42 degrees), 6 degrees in L head rotation (03/17/2025 - 37 degrees, 03/25/2025 - 43 degrees). Previous Goal #3: The patient will complete an oropharyngeal exercise program in junction with myofascial release to improve and maintain optimal swallow functioning s/p chemoradiation treatment to improve and maintain strength, ROM, and coordination of swallowing mechanism (X20 repetitions, 3-5X daily) Goal 3 Status: PROGRESSING - Pt has resumed home exercise program. He completes Rosalinda, Ara, and effortful swallows >50 reps during sessions w/ myofascial release. Previous Goal #4: The patient will participate in voice evaluation to set additional goals to POC as warranted. Goal 4 Status: ON HOLD UNTIL SPECIAL ORDER TRACH VOICING SUPPLIES ARE OBTAINED. Pt is tolerating PMSV, but cannot utilize it when he is lying back. Swallowing Performance Scale Swallowing Performance Scale Swallowing Performance Scale Result: 5 Moderate Reference: Neuro-QoL instrument Radiation Oncology Patient FOIS Functional Oral Intake Scale Total oral diet with multiple consistencies, but requiring special preparation or compensations: Level 5 Plan Plan Plan: Will recommend continued myofascial release in junction w/ oropharyngeal, neck ROM, and jaw ROM exercises, 3-4X/week to address ongoing severe oropharyngeal dysphagia. 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 Given his hx of SCC of unknown primary with left neck adenopathy s/p chemoradiation therapy (02/10/2019 – 03/25/2019) and SCC of FOM s/p composite resection and reconstruction (11/07/2021) and chemoradiation therapy (12/20/2021 – 02/06/2022) w/ chronic tracheostomy and current severe oropharyngeal dysphagia, the patient is at increased risk for worsening dysphagia and aspiration. Pt does have an order for voice evaluation to trial special order trach voicing valve ([employer] 1) w/ SECURITIES COUNSELOR, but SECURITIES COUNSELOR has been unable to obtain this special order. If SECURITIES COUNSELOR obtains special order trach supplies, will proceed w/ voice evaluation, which is deferred until supplies are obtained. Recommendations Treatment Warranted: Yes Treatment Warranted: Dysphagia Comment: Annual MBSS recommended (most recent 11/2024). Progress Prognosis: Fair Frequency Frequency: 3-5X/week Duration: 2-4 Months Patient/Family Goal Patient/Family Goal: Improve neck ROM, improve swallowing, advance diet textures Goals that are Established Determination:: Goals will be added/modified as deemed necessary and appropriate. Therapy will be discontinued when results of re-evaluation indicate therapy is no longer needed or lack of progress has been documented. Goal #1-5 Goal #1: The patient will complete jaw strength, coordination, and ROM exercises in junction w/ jaw massage and myofascial release s/p chemoradiation treatment to improve mastication abilities (X10 repetitions, 3-5X daily). Goal #2: The patient will complete neck ROM exercises in junction with myof ascial release to improve neck mobility s/p chemoradiation treatment for optimal swallow functioning (X20 repetitions, 3-5X daily). Goal #3: The patient will complete an oropharyngeal exercise program in junction with myofascial release to improve and/or maintain optimal swallow functioning s/p chemoradiation treatment to improve and maintain strength, ROM, and coordination of swallowing mechanism (X20 repetitions, 3-5X daily) Goal #4: The patient will participate in voice evaluation to set additional goals to POC as warranted. (ON HOLD UNTIL SPECIAL ORDER TRACH VOICING SUPPLIES ARE OBTAINED). Education Patient has Indicated that the Following Identified Educational Needs: None The Patient has indicated that they have no educational or learning abilities that may effect their care.: Yes Patient Instruction Patient Education: Goals, Safety Precautions and Home Exercise Program Person Taught: Patient Teaching Method: Discussion Response to teaching: Verbalize Understanding and Has Prior Knowledge
--- NOTE | 2025-04-22 08:15 | HP.SPREEV_ITS ---
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 From 02/10/2019 – 03/25/2019 he received definitive chemoradiation therapy. 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 He participated in additional chemoradiation therapy from 12/20/2021 – 02/06/2022. 11/07/2021: PEG tube placement, tracheostomy, composite resection of oral cavity, excision of skin and soft tissue, segmental mandibulectomy, right selective neck dissection and left neck exploration for vessels. Reconstruction was thigh free flap and had complex neck closure with split thickness skin graft. Trach was removed following surgery on 12/05/2021 with the trach re-inserted due to difficulty breathing when lying flat. Trach is chronic. Dysphagia History: Pt has followed with OP ST during and intermittently after radiation treatment to manage severe oropharyngeal dysphagia. PEG tube was removed summer. He sustains himself fully on oral diet of liquidized purees / thin liquids. Pt has participated in 8 MBSS (06/26/2019, 03/30/2020, 01/08/2022, 04/13/2022, 06/15/2022, 08/05/2023, 06/24/2024, 12/17/2024). Most recent MBSS 12/17/2024 revealed severe oropharyngeal dysphagia and recommended liquidized purees (ok for small, minced lumps) / thin liquids w/ recommendation for frequent oral care and the following strategies: Intermittent cough and re- swallow, Small Bites, Multiple Swallows, Alternate bites/solids and sips/liquids, Sitting upright and Remain sitting upright for 30 minutes after PO intake. Hx of esophageal dysphagia managed by air saw operator, Dr. Akhtar, s/p EGD w/ botox injection and esophageal dilation of esophageal stenosis 02/03/2024. He participated in OP ST for myofascial release in junction with oropharyngeal strengthening and neck ROM exercises from 08/2023-10/2023 with improvements in swallowing, including advancing diet from purees to foods with soft, solid lumps (soups with small lumps), and improved neck ROM (L head rotation improved from 16 degrees to 37 degrees, R head rotation improved from 19 degrees to 35 degrees). He returned to OP ST 03/17/2024 for continued dysphagia therapy for myofascial release in junction w/ neck ROM exercises due to pt reporting sensation of decreased neck ROM, increased stiffness of neck, and worsening swallow function. He has participated in 41 visits during this POC with implementation of myofascial release and jaw massage in junction w/ oropharyngeal strengthening, neck ROM, and jaw ROM exercise programs. The patient has progressed from full liquidized puree / thin liquid diet to liquidized purees with small lumps / thin liquids. He has demonstrated progress in neck ROM and jaw ROM w/ jaw stretching, massage, and myofascial release during this POC of 45 visits. Baseline neck ROM and jaw opening values from 09/27/2023: Left neck rotation - 16 degrees, Right neck rotation – 19 degrees; 09/20/2023 Jaw opening – 36mm. Smoking Status: Former smoker Diagnosis Diagnosis: SCC of mandibular alveolar ridge C41.1 Pain Is pain an issue with your current prescribed condition?: No Personal Preferred language: Mongolian Patient Allergies Allergies Allergies: Allergies No Known Allergies Allergy (Verified 04/15/25 07:36) Previous/Current Goals Goals 1-5 Previous Goal #1: The patient will complete jaw strength, coordination, and ROM exercises in junction w/ jaw massage and myofascial release s/p chemoradiation treatment to improve mastication abilities (X10 repetitions, 3-5X daily). He gained 2mm of jaw opening during these past 4 sessions. Goal 1 Status: PROGRESSING - Pt completes jaw opening as CHEMISTRY PHYSICS TEACHER applies MFR techniques to pt's masseter and pterygoids for 2-3 min durations each side during sessions. Previous Goal #2: The patient will complete neck ROM exercises in [place] with myofascial release to improve neck mobility s/p chemoradiation treatment for optimal swallow functioning (4min sustained neck stretching for rotation and flexion w/ 30-60 seconds of passive ROM stretching for rotation and flexion). Goal 2 Status: PROGRESSING - During this POC, pt provided CHEMISTRY PHYSICS TEACHER feedback that sustained neck exercises (passive and active ROM) felt as if they provided him a deeper stretch. Pt completed neck ROM exercises for 4min durations for BL neck rotation, BL neck flexion, and neck extension. Active ROM stretches were completed in junction w/ CHEMISTRY PHYSICS TEACHER applying myofascial release. Pt made excellent gains in neck ROM. Please see "Summary of progress of current POC" below for more details. Previous Goal #3: The patient will complete an oropharyngeal exercise program in [place] with myofascial release to improve and/or maintain optimal swallow functioning s/p chemoradiation treatment to improve and maintain strength, ROM, and coordination of swallowing mechanism (X20 repetitions, 3-5X daily) Goal 3 Status: PROGRESSING - Pt completed ~70-80 reps of Ara, Rosalinda, and effortful swallows each session in [place] w/ oropharyngeal strengthening and sustained neck extension during this POC. Previous Goal #4: The patient will participate in voice evaluation to set additional goals to POC as warranted. (ON HOLD UNTIL SPECIAL ORDER TRACH VOICING SUPPLIES ARE OBTAINED). Goal 4 Status: CHEMISTRY PHYSICS TEACHER has continued to reach out to brand sales consultant to obtain HMEs and trach voicing supplies; however, no local DMEs will special order supplies at this time. Swallowing Performance Scale Swallowing Performance Scale Swallowing Performance Scale Result: 5 Moderate Reference: Neuro-QoL instrument Radiation Oncology Patient FOIS Functional Oral Intake Scale Total oral diet with multiple consistencies, but requiring special preparation or compensations: Level 5 (liquidized purees w/ small lumps) Other Other Summary of progress from current POC: -: Pt participated in 4 dysphagia therapy visits w/ participation in neck ROM and oropharyngeal exercises in [place] w/ myofascial release, applied by CHEMISTRY PHYSICS TEACHER due to pt's BUE fine motor impairments. The following data was obtained from 04/21/2025 session to measure progress... Right neck rotation - 44 degrees, increased 4 degrees from 04/16/2025 session. Left neck rotation - 43 degrees, increased 5 degrees from 04/16/2025 session. Right neck flexion - 25 degrees, increased 9 degrees from 04/16/2025 session. Left neck flexion - 21 degrees, increased 1 degree from 04/16/2025 session. Neck extension - 28 degrees, increased 14 degrees from 04/16/2025 session. Jaw opening - 45mm (measured from top to bottom lip), increased 2mm from 04/16/2025 session. Plan Plan Plan: Will recommend continued myofascial release in junction w/ oropharyngeal, neck ROM, and jaw ROM exercises, 3-4X/week to address ongoing severe oropharyngeal dysphagia. 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 Given his hx of SCC of unknown primary with left neck adenopathy s/p chemoradiation therapy (02/10/2019 – 03/25/2019) and SCC of FOM s/p composite resection and reconstruction (11/07/2021) and chemoradiation therapy (12/20/2021 – 02/06/2022) w/ chronic tracheostomy and current severe oropharyngeal dysphagia, the patient is at increased risk for worsening dysphagia and aspiration risk. He demonstrated excellent progress these past 4 sessions in increasing neck ROM and jaw opening. Continuing therapy to improve neck ROM is recommended to maintain optimal mobility of pt's swallowing mechanism, as well as to maintain optimal posture for safe swallowing. Pt does have an order for voice evaluation to trial special order trach voicing valve ([employer] 1) w/ CHEMISTRY PHYSICS TEACHER, but CHEMISTRY PHYSICS TEACHER has been unable to obtain this special order from any local DMEs. If CHEMISTRY PHYSICS TEACHER obtains special order trach supplies, will proceed w/ voice evaluation, which is still deferred until supplies are obtained. Recommendations Treatment Warranted: Yes Treatment Warranted: Dysphagia Comment: Annual MBSS recommended (most recent 11/2024). Progress Prognosis: Fair Frequency Frequency: 3-5X/week Additional (Frequency): 3-5X/week Duration: 3-5 weeks Visits in this POC: 3-5 weeks Patient/Family Goal Patient/Family Goal: Improve neck ROM, improve swallowing, advance diet textures Goals that are Established Determination:: Goals will be added/modified as deemed necessary and appropriate. Therapy will be discontinued when results of re-evaluation indicate therapy is no longer needed or lack of progress has been documented. Goal #1-5 Goal #1: The patient will complete jaw strength, coordination, and ROM exercises in junction w/ jaw massage and myofascial release s/p chemoradiation treatment to improve mastication abilities (Sustained holds X4-8 repetitions, 3-5X daily). Goal #2: The patient will complete neck ROM exercises in junction with myofascial release to improve neck mobility s/p chemoradiation treatment for optimal swallow functioning (4min sustained neck stretching for neck rotation, neck flexion, and neck extension w/ passive ROM stretching for rotation, flexion, and extension). Goal #3: The patient will complete an oropharyngeal exercise program in junction with myofascial release to improve and/or maintain optimal swallow functioning s/p chemoradiation treatment to improve and maintain strength, ROM, and coordination of swallowing mechanism (X70-80 repetitions per session) Goal #4: The patient will participate in voice evaluation to set additional goals to POC as warranted. (ON HOLD UNTIL SPECIAL ORDER TRACH VOICING SUPPLIES ARE OBTAINED). Education Patient has Indicated that the Following Identified Educational Needs: None The Patient has indicated that they have no educational or learning abilities that may effect their care.: Yes Patient Instruction Patient Education: Goals, Safety Precautions and Home Exercise Program Person Taught: Patient Teaching Method: Discussion Response to teaching: Verbalize Understanding and Has Prior Knowledge
--- NOTE | 2025-05-14 14:38 | HP.SP.REEV ---
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 From 02/10/2019 – 03/25/2019 he received definitive chemoradiation therapy. 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 He participated in additional chemoradiation therapy from 12/20/2021 – 02/06/2022. 11/07/2021: PEG tube placement, tracheostomy, composite resection of oral cavity, excision of skin and soft tissue, segmental mandibulectomy, right selective neck dissection and left neck exploration for vessels. Reconstruction was thigh free flap and had complex neck closure with split thickness skin graft. Trach was removed following surgery on 12/05/2021 with the trach re-inserted due to difficulty breathing when lying flat. Trach is chronic. Dysphagia History: Pt has followed with OP ST during and intermittently after radiation treatment to manage severe oropharyngeal dysphagia. PEG tube was removed summer. He sustains himself fully on oral diet of liquidized purees / thin liquids. Pt has participated in 8 MBSS (06/26/2019, 03/30/2020, 01/08/2022, 04/13/2022, 06/15/2022, 08/05/2023, 06/24/2024, 12/17/2024). Most recent MBSS 12/17/2024 revealed severe oropharyngeal dysphagia and recommended liquidized purees (ok for small, minced lumps) / thin liquids w/ recommendation for frequent oral care and the following strategies: Intermittent cough and re-swallow, Small Bites, Multiple Swallows, Alternate bites/solids and sips/liquids, Sitting upright and Remain sitting upright for 30 minutes after PO intake. Hx of esophageal dysphagia managed by roller varnisher, Dr. Akhtar, s/p EGD w/ botox injection and esophageal dilation of esophageal stenosis 02/03/2024. He participated in OP ST for myofascial release in junction with oropharyngeal strengthening and neck ROM exercises from 08/2023-10/2023 with improvements in swallowing, including advancing diet from purees to foods with soft, solid lumps (soups with small lumps), and improved neck ROM (L head rotation improved from 16 degrees to 37 degrees, R head rotation improved from 19 degrees to 35 degrees). He returned to OP ST 03/17/2024 for continued dysphagia therapy for myofascial release in junction w/ neck ROM exercises due to pt reporting sensation of decreased neck ROM, increased stiffness of neck, and worsening swallow function. He has participated in 49 visits during this POC with implementation of myofascial release and jaw massage in junction w/ oropharyngeal strengthening, neck ROM, and jaw ROM exercise programs. The patient has progressed from full liquidized puree / thin liquid diet to liquidized purees with small lumps / thin liquids. He has demonstrated progress in neck ROM and jaw ROM w/ jaw stretching, massage, and myofascial release during this POC of 49 visits. Baseline neck ROM and jaw opening values from 09/27/2023: Left neck rotation - 16 degrees, Right neck rotation – 19 degrees; 09/20/2023 Jaw opening – 36mm. 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 Goal 1 Status: NOT MET. Patient's jaw opening remained the same (44mm measured from upper to lower lip) during the past 4 sessions. Previous Goal #2: The patient will complete neck ROM exercises in junction with myofascial release to improve neck mobility s/p chemoradiation treatment for optimal swallow functioning (4min sustained neck stretching for neck rotation, neck flexion, and neck extension w/ passive ROM stretching for rotation, flexion, and extension). Goal 2 Status: PROGRESSING - See data from 05/14/2025 session below. Right neck rotation - 45 degrees, increased 3 degrees from 05/10/2025 session (42 degrees). Left neck rotation - 44 degrees, increased 1 degree from 05/10/2025 session (43 degrees). Right neck flexion - 27 degrees, increased 4 degrees from 05/10/2025 session (23 degrees). Left neck flexion - 23 degrees, increased 1 degree from 05/10/2025 session (22 degrees). Neck extension - 30 degrees, increased 4 degrees from 05/10/2025 session (26 degrees). Previous Goal #3: The patient will complete an oropharyngeal exercise program in junction with myofascial release to improve and/or maintain optimal swallow functioning s/p chemoradiation treatment to improve and maintain strength, ROM, and coordination of swallowing mechanism (X70-80 repetitions per session) Goal 3 Status: PROGRESSING - Pt completes effortful swallows X72-80 reps as MOTOR EQUIPMENT COMMANDING OFFICER applies MFR during sessions. Pt completes Ara X72-80 reps as MOTOR EQUIPMENT COMMANDING OFFICER applies MFR during sessions. Pt completes Rosalinda X39-42 reps as MOTOR EQUIPMENT COMMANDING OFFICER applies MFR during sessions. Previous Goal #4: The patient will participate in voice evaluation to set additional goals to POC as warranted. (ON HOLD UNTIL SPECIAL ORDER TRACH VOICING SUPPLIES ARE OBTAINED). Goal 4 Status: NOT MET - No local DMEs will supply special order trach supplies. Will defer voice evaluation at this time. Swallowing Performance Scale Swallowing Performance Scale Swallowing Performance Scale Result: 5 Moderate Reference: Neuro-QoL instrument Radiation Oncology Patient FOIS Functional Oral Intake Scale Total oral diet with multiple consistencies, but requiring special preparation or compensations: Level 5 (liquidized purees w/ small lumps) Other Other Summary of progress from current POC: -: Pt participated in 4 additional dysphagia therapy visits w/ participation in neck ROM and oropharyngeal exercises in junction w/ myofascial release, applied by MOTOR EQUIPMENT COMMANDING OFFICER due to pt's BUE fine motor impairments. The following data was obtained from 05/14/2025 session to measure progress... Right neck rotation - 45 degrees, increased 3 degrees from 05/10/2025 session (42 degrees). Left neck rotation - 44 degrees, increased 1 degree from 05/10/2025 session (43 degrees). Right neck flexion - 27 degrees, increased 4 degrees from 05/10/2025 session (23 degrees). Left neck flexion - 23 degrees, increased 1 degree from 05/10/2025 session (22 degrees). Neck extension - 30 degrees, increased 4 degrees from 05/10/2025 session (26 degrees). Jaw opening - 44mm (measured from top to bottom lip), remained the same from 05/10/2025 session (44mm). Plan Plan Plan: Will recommend continued myofascial release in junction w/ oropharyngeal, neck ROM, and jaw ROM exercises, 3-4X/week to address ongoing severe oropharyngeal dysphagia. 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 Given his hx of SCC of unknown primary with left neck adenopathy s/p chemoradiation therapy (02/10/2019 – 03/25/2019) and SCC of FOM s/p composite resection and reconstruction (11/07/2021) and chemoradiation therapy (12/20/2021 – 02/06/2022) w/ chronic tracheostomy and current severe oropharyngeal dysphagia, the patient is at increased risk for worsening dysphagia and aspiration risk. He demonstrated good progress these past 4 sessions in increasing neck ROM and in completing oropharyngeal exercises in junction w/ MFR. Continuing therapy to improve neck ROM is recommended to maintain optimal mobility of pt's swallowing mechanism, as well as to maintain optimal posture for safe swallowing. Voice evaluation deferred at this time due to no local DMEs being able to special order trach voicing supplies. MOTOR EQUIPMENT COMMANDING OFFICER to explore other product options for voicing. In the meantime, pt it tolerating use of [place] Speaking Valve at home as long as he is not lying flat. Recommendations Treatment Warranted: Yes Treatment Warranted: Dysphagia Comment: Annual MBSS to monitor swallow function and risk for aspiration s/p chemoradiation treatment for hx of HNC planned for November of 2025. Progress Prognosis: Fair Frequency Frequency: 4-5x /Week Additional (Frequency): 3-5X/week Duration: 2-4 Weeks Visits in this POC: 3-5 weeks Patient/Family Goal Patient/Family Goal: Improve neck ROM, improve swallowing, advance diet textures Goals that are Established Determination:: Goals will be added/modified as deemed necessary and appropriate. Therapy will be discontinued when results of re-evaluation indicate therapy is no longer needed or lack of progress has been documented. Goal #1-5 Goal #1: The patient will complete neck ROM exercises in junction with myofascial release to improve neck mobility s/p chemoradiation treatment for optimal swallow functioning and to achieve optimal posture for safe swallowing (4min sustained neck stretching for neck rotation, neck flexion, and neck extension w/ passive ROM stretching for neck rotation, flexion, and extension). Goal #2: The patient will complete an oropharyngeal exercise program in junction with myofascial release to improve pharyngeal clearance and airway closure during the swallow for safe consumption of liquids and liquidized puree textures (X70-80 repetitions per session). Goal #3: . Goal #4: . Education Patient has Indicated that the Following Identified Educational Needs: None The Patient has indicated that they have no educational or learning abilities that may effect their care.: Yes Patient Instruction Patient Education: Goals and Home Exercise Program Person Taught: Patient Teaching Method: Discussion Response to teaching: Verbalize Understanding and Has Prior Knowledge
--- NOTE | 2025-06-15 15:39 | HP.SP.DC ---
ST Discharge Summary Discharged: Discharge: The patient was evaluated for dysphagia on 03/17/2025 and participated in 49 visits to address severe oropharyngeal dysphagia secondary to hx of SCC of unknown primary with left neck adenopathy s/p chemoradiation therapy (02/10/2019 – 03/25/2019) and SCC of FOM s/p composite resection and reconstruction (11/07/2021) and chemoradiation therapy (12/20/2021 – 02/06/2022) w/ chronic tracheostomy. POC included ongoing assessment of diet tolerance, training in oropharyngeal exercises and neck ROM exercises in junction with myofascial release techniques, and jaw ROM exercise in junction with myofascial release techniques. He demonstrated good progress improving neck ROM and he completes home exercise program daily. Due to deficits in fine motor abilities of hands (bilaterally), he is unable to apply myofascial release techniques himself and the patient lives alone so no family training was able to be provided for completion of myofascial release. He currently tolerates a full oral diet of liquidized purees w/ small lumps and thin liquids, but he is at high risk for aspiration. Pt completes oral care frequently throughout the day to decrease his risk for aspiration related illnesses. The patient’s insurance is not authorizing additional visits at this time; however, if concern for worsening swallow function please re-consult ST for re-evaluation. He is at high risk for worsening swallow function given his hx of HNC described above.
== END 2025-05-14 19:00 | disposition home or self-care (01) ==
LOC: SP 10:00
PROVIDERS: PCP Nurse Practitioner; Referring Provider Student in an Organized Health Care Education/Training Program; Visit Provider Student in an Organized Health Care Education/Training Program
DX: C04.9 Malignant neoplasm of floor of mouth, unspecified (principal); C41.1 Malignant neoplasm of mandible; R13.10 Dysphagia, unspecified
CPT/HCPCS: 92526; 92610; 92611; 97802; 97803

== ENCOUNTER → 2025-06-28 | Outpatient (CLI) | payer MEDICARE, SELFPAY ==
[2022-01-31 09:09] VITALS: BMI 22.6
--- NOTE | 2025-06-28 06:50 | CT_ITS ---
EXAM: CT Chest With Intravenous Contrast CLINICAL INDICATION: F/U RUL NODULE TECHNIQUE: Axial computed tomography images of the chest with intravenous contrast. This CT exam was performed using one or more of the following dose reduction techniques: automated exposure control, adjustment of the mA and/or kV according to patient size, and/or use of iterative reconstruction technique. COMPARISON: CT Chest dated 12/29/2024 FINDINGS: LUNGS AND PLEURAL SPACES: Emphysematous lung changes with bilateral apical scarring, stable. Stable nodules of right upper lobe measuring up to 2 mm. No new suspicious pulmonary nodules. No consolidation. No significant effusion. No pneumothorax. HEART: Unremarkable. No cardiomegaly. No significant pericardial effusion. No significant coronary artery calcifications. BONES/JOINTS: Unremarkable. No acute fracture. SOFT TISSUES: Unremarkable. VASCULATURE: Unremarkable. No thoracic aortic aneurysm. LYMPH NODES: Unremarkable. No enlarged lymph nodes. LIVER: Fatty infiltration of the liver. TUBES, LINES AND DEVICES: Tracheostomy tube in satisfactory position. CT/Chest WITH Contrast IMPRESSION: 1. Emphysematous lung changes with bilateral apical scarring, stable. 2. Stable nodules of right upper lobe measuring up to 2 mm. No new suspicious pulmonary nodules. 3. Continue low-dose CT scan of the chest in 12 months is recommended. Reading Location: [id number]
--- OUTSIDE RECORDS SUMMARY | 2025-06-28 06:52 | XMS RPT_ITS | CCD ---
Author Organization [facility] Care Team Providers Care Machine Wedger Name Role Phone Kya Gonzalez E Unavailable Shane Gallo Unavailable Xavier Myers Unavailable Unavailable Unavailable Unavailable One Eighty Unavailable Eighty, One Unavailable Rachel Brooks Unavailable Unavailable Kya Gonzalez Unavailable Unavailable Jeana Gaspar Unavailable Caridad Gomez Unavailable Unavailable Lina Pretty Unavailable Unavailable Xavier Ponce Unavailable Unavailable Shane Gallo Unavailable Kya Gonzalez CNP Unavailable Shane Gallo MD Unavailable Eighty, One Unavailable Xavier Ponce LPN Unavailable Unavailable Caridad Gomez LPN Unavailable Unavailable Unavailable Unavailable Monica Archana Unavailable Unavailable Unavailable Ciesa Archana Unavailable Sidagam, Brayan Unavailable Unavailable Rachel Brooks Unavailable Avinash Otero Unavailable Unavailable Monica LOADER MAGAZINE GRINDER, 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 Kya Primary Care Provider Monica LOADER MAGAZINE GRINDER, 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 Kya Referring Provider Dr. Santiago Sellers Attending Provider [phone] Dr. Santiago Sellers Referring Provider Dr. Quicny Simpson Attending Provider Dr. Donaldo Nichole Attending Provider Dr. Quincy Simpson Referring Provider Alissa LOADER MAGAZINE GRINDER, 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 Marce Attending Provider Dr. Cesar Mcbride Emergency Provider Dr. Sonu Lee Admit Provider Dr. Sonu Lee Other Provider Katerin, 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 Rehana Attending Provider Unavail able Dr. Dalila Melvin Attending Provider Dr. Dalila Melvin Other Provider Dr. Alan Miller Other Provider Ciesa, Kya Unavailable Unavailable Unavailable Gravius FIELD WORKER, Li Unavailable Unavailable Hubert DO, Jeana Unavailable Slarb SUPERVISOR NUTRITIONAL YEAST, Mirna Unavailable Unavailable Ciesa, Kya Unavailable Jack PHYSICIST SOLID EARTH, Sadie Unavailable Jack PHYSICIST SOLID EARTH, Sadie Unavailable Unavailable Unavailable Ciesa LOADER MAGAZINE GRINDER, 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 [facility] Primary Care Provider Dr. Santiago Sellers Attending Provider Dr. Santiago Sellers Referring Provider Cimegana LOADER MAGAZINE GRINDER, 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 [facility] Referring Provider Dr. Quincy Simpson Attending Provider Cidanya LOADER MAGAZINE GRINDER, 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 [facility] Primary Care Provider Dr. Santiago Sellers Attending Provider Dr. Santiago Sellers Referring Provider Cieschioma LOADER MAGAZINE GRINDER, 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 [facility] Primary Care Provider Dr. Santiago Sellers Attending Provider Dr. Santiago Slelers Referring Provider Dr. Cesar Mcbride Emergency Provider Dr. Sonu Lee Admit Provider Dr. Sonu Lee Other Provider Dr. Dalila Melvin Attending Provider Dr. Dalila Melvin Other Provider Dr. Alan Miller Other Provider Ciesa LOADER MAGAZINE GRINDER, 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 [facility] Referring Provider Dr. Quincy Simpson Attending Provider Ciesa LOADER MAGAZINE GRINDER, 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 [facility] Primary Care Provider Ciesa LOADER MAGAZINE GRINDER, 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 [facility] Referring Provider Dr. Santiago Sellers Attending Provider Dr. Quincy Simpson Attending Provider Ciesa LOADER MAGAZINE GRINDER, 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 [facility] Primary Care Provider Ciesa LOADER MAGAZINE GRINDER, 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 [facility] Referring Provider Dr. Santiago Sellers Attending Provider Ciesa LOADER MAGAZINE GRINDER, 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 [facility] Primary Care Provider Ciesa LOADER MAGAZINE GRINDER, 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 [facility] Referring Provider Dr. Santiago Sellers Attending Provider Dr. Quincy Simpson Attending Provider Jack PHYSICIST SOLID EARTH, Sadie Unavailable Jack PHYSICIST SOLID EARTH, Sadie Unavailable Sabino QUESADA, Shane Paniagua Unavailable Eighty, One Unavailable Gravius FIELD WORKER, Li Unavailable Unavailable Jason SUPERVISOR NUTRITIONAL YEAST, Caridad Unavailable Unavailable Kris SUPERVISOR NUTRITIONAL YEAST, Xavier Unavailable Unavailable Hubert DO, Jeana Unavailable Slarb SUPERVISOR NUTRITIONAL YEAST, Mirna Unavailable Unavailable Unavailable Unavailable Ciesa LOADER MAGAZINE GRINDER, 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 [facility] Primary Care Provider Dr. Santiago Sellers Attending Provider Ciesa LOADER MAGAZINE GRINDER, 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 [facility] Primary Care Provider Dr. Santiago Sellers Attending Provider Ciesa LOADER MAGAZINE GRINDER, 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 [facility] Referring Provider Dr. Quincy Simpson Attending Provider Koki Morgan MA Unavailable Unavailable Jack PHYSICIST SOLID EARTH, Sadie Attending Unavailable Jack PHYSICIST SOLID EARTH, Sadie Referring Unavailable Jack PHYSICIST SOLID EARTH, Sadie Consulting Unavailable Ciesa LOADER MAGAZINE GRINDER, 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 [facility] Primary Care Provider Ciesa LOADER MAGAZINE GRINDER, 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 [facility] Referring Provider Dr. Santiago Sellers Attending Provider Pedro Pablo, Mr. Segundo Ocampo Attending Unavailab le Ciesa, Ms. Archana Primary Care Unavailable Stacy, Dr. True De La Cruz Referring Unava ilable Brooks, Dr. Rachel Mancia Attending Brittaney vailable Rbooks, Dr. Rachel Mancia Referring Brittaney vailable Ciesa, Ms. Archana Primary Care Unavailable Brooks, Dr. Rachel Mancia Attending Brittaney vailable Ciesa, Ms. Archana Primary Care Unavailable Ciesa, Ms. Archana Referring Unavailable Brooks, Dr. Rachel Mancia Attending Brittaney vailable Todd, Dr. Rachel Mancia Referring Brittaney vailable Ciesa, Ms. Archana Primary Care Unavailable Brooks, Dr. Rachel Mancia Attending Brittaney vailable Brooks, Dr. Rachel Mancia Referring Brittaney vailable Ciesa, Ms. Archana Primary Care Unavailable Brooks, Dr. Rachel Mancia Referring Brittaney vailable Ciesa, Ms. Archana Primary Care Unavailable Stacy, Dr. True De La Cruz Attending Unava ilable Ciesa, Ms. Archana Primary Care Unavailable Chamorro, Mr. Segundo Ocampo Attending Unavailab dillan Kumar, Dr. True De La Cruz Referring Unava ilable Ciesa, Ms. Archana Primary Care Unavailable Pedro Pablo, Mr. Segundo Ocampo Attending Unavailab dillan Kumar, Dr. True De La Cruz Referring Unava ilable Ciesa LOADER MAGAZINE GRINDER, 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 [facility] Primary Care Provider Ciesa LOADER MAGAZINE GRINDER, 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 Kya Referring Provider Dr. Quincy Simpson Attending Provider Ciesa JOB DEVELOPER FOR DEAF ADULTS-PHYSICIST SOLID EARTH, JOB DEVELOPER FOR DEAF ADULTS-POLLS OR SURVEYS INTERVIEWER, Archana Primary Care Pr ovider Hubert REN, Jeana Lucas Unavailable Dr. Santiago Sellers Attending Provider Dr. Elliott Akhtar Attending Provider Dr. Elliott Akhtar Other Provider Ciesa LOADER MAGAZINE GRINDER, 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 [facility] Primary Care Provider Ciesa LOADER MAGAZINE GRINDER, 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 [facility] Referring Provider RACHEL BROOKS Referring Unavailable CIESA, [facility] Primary Care Unavailable Dr. Quincy Simpson MD Attending Provider Dr. Quincy Simpson MD Referring Provider Jack 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, Sadie Primary Care Provider Jack 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, Sadie Referring Provider Kalie 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, Loretta A Other Provider Dr. Quincy Simpson MD Other Provider Kalie 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, Loretta Murrell Attending Provider Dr. Elliott Akhtar DO Attending Provider Dr. Elliott Akhtar DO Other Provider Josefaesa 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, [facility] Primary Care Provider Unavailab le Dr. Santiago Sellers DO Attending Provider Dr. Santiago Sellers DO Referring Provider Dr. Quincy Simpson MD Attending Provider Jack 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, Sadie Primary Care Provider Dr. Quinyc Simpson MD Referring Provider Dr. Santiago Sellers DO Attending Provider Dr. Santiago Sellers DO Referring Provider Ciesa 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, [facility] Primary Care Provider Unavailab le Jack 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, Sadie Primary Care Provider Jack 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, Sadie Referring Provider Tatiana QUESADA, Dr. Mathew Attending Provider Dr. Quincy Simpson MD Referring Provider Ciesa 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, [facility] Primary Care Provider Unavailab le Jack 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, Sadie Primary Care Provider Jack 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, Sadie Referring Provider Giovana REN, Dr. Gallagher Attending Provider Dr. James Stephens DO Attending Provider Angelo REN, Dr. Ramirez Referring Provider Dr. James Stephens DO Other Provider Shalom QUESADA, Dr. Burgos Attending Provider Ciesa JOB DEVELOPER FOR DEAF ADULTS-PHYSICIST SOLID EARTH, JOB DEVELOPER FOR DEAF ADULTS-POLLS OR SURVEYS INTERVIEWER, Archana Primary Care Pr ovider Ciesa 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, [facility] Care Provider Unavailab dillan Akhtar DO, Dr. Gallagher Other Provider Roman Morales MD Unavailable James Stephens DO Unavailable [phone] Jack PHYSICIST SOLID EARTH, Sadie Unavailable DAYAMI JHA Attending Unavailable CIESA, ARCHANA Primary Care Unavailable RACHEL BROOKS Attending Unavailable CIESA, ARCHANA Primary Care Unavailable RACHEL BROOKS Attending Unavailable CIESA, ARCHANA Primary Care Unavailable Jack 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, Sadie Primary Care Physician Dr. James Stephens DO Attending Physician Dr. James Stephens DO Nurse Practitioner [phone] Shalom QUESADA, Dr. Burgos Attending Physician Jack 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, Sadie Referring Provider Giovana REN, Dr. Gallagher Attending Physician Giovana REN, Dr. Gallagher Nurse Practitioner Monica 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, [facility] Primary Care Physician Unavaila ble Verito REN, Dr. Henderson Attending Physician Verito REN, Dr. Henderson Referring Provider Jack, Sadie Referring Unavailable Isckarus, Carmitaour Attending Unavailable Jack, Sadie Primary Care Unavailable Jack, Sadie Primary Care Unavailable Spittle, James Referring Unavailable Loretta Rausch Attending Unavailable Spittle, James Consulting Unavailable Jack, Sadie Primary Care Unavailable Jack, Sadie Referring Unavailable Elliott Akhtar Attending Unavailable Elliott Akhtar Consulting Unavailable Spittle, James Referring Unavailable Spittle, James Consulting Unavailable AhmaLoretta tyler Attending Unavailable Jack, Sadie Primary Care Unavailable Jack, Sadie Primary Care Unavailable Spittle, James Attending Unavailable Spittle, James Referring Unavailable Jack, Sadie Primary Care Unavailable Isckarus, Carmitaour Referring Unavailable Isckarus, Carmitaour Attending Unavailable Jack, Sadie Referring Unavailable Isckarus, Mansour Attending Unavailable Jack, Sadie Primary Care Unavailable Jack, Sadie Primary Care Unavailable Jack, Sadie Referring Unavailable VeritoTobie Attending Unavailable Jack, Sadie Referring Unavailable Jack, Sadie Primary Care Unavailable Isckarus, Mansour Attending Unavailable Jack, Sadie Referring Unavailable Elliott Akhtar Attending Unavailable Jack, Sadie Primary Care Unavailable Jack, Sadie Primary Care Unavailable Verito Santiago Attending Unavailable Jack, Sadie Primary Care Unavailable Verito Santiago Referring Unavailable Verito Santiago Attending Unavailable Jack, Sadie Primary Care Unavailable Isckarus, Mansour Referring Unavailable Isckarus, Carmitaour Attending Unavailable Jack, Sadie Primary Care Unavailable Isckarus, Mansour Referring Unavailable Loretta Jade Consulting Unavailable Isckarus, Carmitaour Attending Unavailable Jack, Sadie Referring Unavailable Ra Giovanahsaan Attending Unavailable Jack, Sadie Primary Care Unavailable Santiago Sellers Attending Unavailable Jack, Sadie Primary Care Unavailable Santiago Sellers Attending Unavailable Santiago Sellers Referring Unavailable Monica LOADER MAGAZINE GRINDER, [facility] Primary Care Unavailable Jack, Sadie Primary Care Unavailable Friend, Elliott Attending Unavailable Monica LOADER MAGAZINE GRINDER, Kya Referring Unavailable Jack, Sadie Referring Unavailable Friend, Elliott Attending Unavailable Jack, Sadie Primary Care Unavailable Jack, Sadie Primary Care Unavailable ItalokarusQuincy Referring Unavailable Quincy Simpson Attending Unavailable ArmandottleJames Referring Unavailable SpittleJames Attending Unavailable Jack, Sadie Primary Care Unavailable Santiago Sellers Attending Unavailable Jack, Sadie Primary Care Unavailable Jack, Sadie Primary Care Unavailable Jack, Sadie Referring Unavailable Friend, Elliott Consulting Unavailable Friend, Elliott Attending Unavailable Jack, Sadie Primary Care Unavailable Isckarus, Quincy Referring Unavailable Loretta Jade Attending Unavailable Loretta Jade Consulting Unavailable ItalokarusQuincy Consulting Unavailable Santiago Sellers Attending Unavailable Jack, Sadie Primary Care Unavailable Medications Current Medications Medication Drug Class(es) Dates Sig (Normalized) Sig (Original) acetaminophen 32 mg/ml oral solution (11 sources) Start: 11-13-2021 acetaminophen 160 mg/5 mL [...] every six hours for pain RA Fever Cdl Truck Driver/Pain Reliever 160 MG/5ML Oral Suspension take 20 [...] take 1 tablet by mouth once daily Start: 08-15-2021 amLODIPine Bes ylate 5 MG [...] day Quantity: 0 Refills: 0 Ordered: 31-Oct-2021 Ousmane Donahuessica Generic Substitution Allowed Vitamin C Active Aspirin (2 sources) Platelet Aggregation Inhibitor, Nonsteroidal Anti-inflammatory Drug Start: 11-13-2021 End: 12-05-2021 aspirin ; 325 milligram(s) once a day - PEG Tube Quantity: 0 Refills: 0 Ordered: 13-Nov-2021 La Baez Start: 13-Nov-2021 End: 05-Dec-2021 Generic Substitution Allowed calcitriol 0.001 mg/ml oral solution (1 source) Vitamin D3 Analog calcitriol 1 mcg/mL oral solution active Tracy Seals MA [place] cefdinir 300 mg oral capsule (6 sources) Cephalosporin Antibacterial Start: 11-16-2022 take 1 [...] Start : 31-Oct-2021 End : 29-Dec-2021 Complete cholecalciferol 0.05 mg oral capsule (2 sources) Vitamin D Start: 04-12-2025 take 1 capsule by mouth once daily ciprofloxacin 3 mg/ml / dexamethasone 1 mg/ml otic suspension (1 source) Corticosteroid, Quinolone Antimicrobial ciprofloxacin 0.3 %-dexamethasone 0.1 % ear drops,suspension active Tracy Seals MA [place] collagenase 0.25 unt/mg topical ointment (17 sources) Collagen-specific Enzyme Start: 04-25-2022 collagenase (SantyL) 250 unit/gram ointment Santyl 250 UNIT/GM External Ointment Quantity: 90 Refills: 0 Start : 25-Apr-2022 Active 04/25/2022 Active Start: 04-25-2022 collagenase (S antyL) 250 unit/gram ointment Santyl 250 UNIT/GM External Ointment Quantity: 90 Refills: 0 Start : 25-Apr-2022 Active 0 04/25/2022 Active folic acid 0.4 mg oral table t (20 sources) Start: 09-15-2024 take 0.4 mg by mouth once jewels y Start: 10-16-2021 Folic Acid 400 MCG Oral Tablet Quantity: 0 Refills: 0 Ordered: 16-Oct-2021 DO Start : 16-Oct-2021 Active Start: 08-15-2021 take 1 tablet by evgeny th once daily folic acid 0.4 mg oral tablet ; 1 tab(s) oral once a day Quantity: 0 Refills: 0 Ordered: 31-Oct-2021 Tova Donahue Generic Substitution Allowed hydrogen peroxide 30 mg/ml topical solution (8 sources) Start: 11-13-2021 hydrogen perox merary 3 % external solution Apply topically. 11/13/2021 Active levothyroxine sodium 0.1 mg oral tablet (20 sources) l-Thyroxine Start: 04-12-2023 Start: 01-31-2023 take 100 ug by mouth once jewels y Start: 01-31-2023 take 100 ug by mouth [...] 1 tablet by evgeny th once daily levothyroxine (Synthroid, Levoxyl) 100 mcg tablet Take 1 tablet (100 mcg) by mouth once daily. 08/06/2023 Active Start: 01-21-2023 Start: 08-31-2022 Start: 05-22-2022 [...] Start: 12-02-2020 take 1 tablet by evgeny th once daily Synthroid 75 MCG Oral Tablet [...] nd Fidays and 1 the other days, mecobalamin 1 mg chewable tablet (2 sources) Start: 04-12-20 25 take 1 tablet by mouth once daily metroNIDAZOLE 250 mg oral tablet (6 sources) Nitroimidazole Antimicrobial Start: 01-15-20 23 take 1 tablet by mouth three times daily metroNIDAZOLE (Flagyl) 250 mg tablet Take 1 tablet (250 mg) by mouth 3 times a day. 01/14/2023 Active mineral oil-hydrophilic petrolatum (petrolatum) ointment (6 sources) Start: 11-13-19 mineral oil-hydrophilic petrolatum (petrolatum) ointment Apply topically. 11/13/2021 Active Start: 11-13-2021 mineral oil-hy drophilic petrolatum (petrolatum) ointment Apply topically. 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 Brooks's office Start: 02-12-2022 End: 06-18-2022 take 5 mL by mouth three times daily Nystatin 796265 UNIT/ML Mouth/Throat Suspension 5ml swish and spit three times a day for 14 days Quantity: 210 Refills: 0 Ordered: 12-Feb-2022 Rachel Brooks MD Start : 12-Feb-2022 End : 18-Jun-2022 Complete Start: 01-03-2022 Nystatin 99081 0 UNIT/ML Mouth/Throat Suspension Quantity: 112 Refills: 0 Ordered: 03-Jan-2022 DO Start : 03-Jan-2022 Active oxyCODONE hydrochloride 5 mg oral tablet (20 sources) Opioid Agonist Start: 05-23-2022 take 1 tablet by mouth twice daily as needed for pain Start: 05-03-2022 End: 05-10-2022 take 1 tablet [...] Start: 13-Nov-2021 End: 12-Dec-2021 Generic Substitution Allowed pentoxifylline 400 mg extended release oral tablet (20 sources) Blood Viscosity Cdl Truck Driver Start: 04-12-20 take 1 tablet by mouth three times daily Start: 10-20-2024 End: 02-02-2025 take 1 tablet by mouth twice daily at mealtime Pentoxifylline 400 mg tablet extended release Discontinued 400 mg PO TWICE A DAY October 20, 2024 1:00am February 02, 2025 9:32am radiation fibrosis must administer with a meal/food Start: 05-22-2022 Start: 04-23-2022 take 1 tablet by vegeny once daily Pentoxifylline ER 400 MG Oral Tablet Extended Release 1 (one) Tablet daily for 0 days Quantity: 30 {Tablet} Refills: 0 Ordered: 24-Apr-2022 Sadie Santiago CNP Start : 24-Apr-2022 Active Start: 02-26-2022 take 1 tablet by evgeny once daily [...] hours. Active take 1 tablet by evgeny th once daily pentoxifylline 400 mg oral tablet, extended release ; 1 tab(s) oral once a day Quantity: 0 Refills: 0 Ordered: 31-Oct-2021 Tova Donahue Generic Substitution Allowed Petrolatum (2 sources) Start: 11-13-2021 petrolatum top ical ; 1 application topically 3 times a day - to Incisions Quantity: 0 Refills: 0 Ordered: 13-Nov-2021 La Baez Start: 13-Nov-2021 Generic Substitution Allowed pilocarpine hydrochloride 5 mg oral tablet (20 sources) Cholinergic Receptor Agonist Start: 04-12-2025 take 1 tablet by mouth three times daily Start: 11-01-2022 End: 08-06-2024 take 1 tablet by mouth three times daily Pilocarpine Hcl 5 mg tablet Discontinued 5 mg PO THREE TIMES A DAY 90 November 01, 2022 1:00am August 06, 2024 10:40am 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 11/13/2021 Active Start: 11-13-2021 polyethylene g lycol (Glycolax, Miralax) 17 gram/dose powder Take 17 g by mouth. 11/13/2021 Active sodium chloride 1000 mg oral tablet (20 sources) Start: 01-25-2022 sodium chlorid e 1,000 mg tablet Take by mouth. 01/25/2022 Active Start: 01-25-2022 Sodium Chlorid e 1 GM Oral Tablet Quantity: 60 Refills: 0 Ordered: 14-Feb-2022 DO Start : 25-Jan-2022 Active Start: 01-25-2022 take 3 g by mouth twice daily Start: 01-25-2022 take 3 g by mouth twice daily Sodium Chloride Active 3 GM PO TWICE A DAY 60 January 24, 2022 11:00pm Terazosin (8 sources) alpha-Adrenergic Syeda Start: 11-13-2021 teraz osin ; 2 milligram(s) by PEG tube once (at bedtime) - PEG Tube Quantity: 0 Refills: 0 Ordered: 13-Nov-2021 Tia Baezsea Start: 13-Nov-2021 Generic Substitution Allowed Start: 11-13-2021 terazosin HCl (TERAZOSIN ORAL) 2 mg. 11/13/2021 Active vitamin e 180 mg oral capsule (20 sources) Start: 02-26-2022 take 1 capsule by mouth once daily vitamin E mixed 400 unit capsule Take 1 capsule by mouth once daily. 02/26/2022 Active Start: 02-26-2022 Start: 02-26-2022 Start: 02-26-2022 take 1 capsule by [facility] once daily Vitamin E 400 UNIT [...] inha lation every four hours as needed albuterol 1.25 m g/3 mL nebulizer solution [...] Cellulitis Delayed surgical wound healing Cellulitis, unspecified fluticasone propionate 0.05 mg/actuat metered dose nasal spray (20 sources) Corticosteroid Start: 01-23-2022 Fluticasone Pr opionate Active 1 SPRAY INTRANASAL DAILY January 22, 2022 11:00pm Start: 09-26-2021 End: 04-12-2025 Fluticasone Propionate 50 mc g/actuation [place],Suspension Discontinued 1 NMA INTRANASAL DAILY as needed for health maintenance January 23, 2022 12:00am April 12, 2025 11:09am Start: 09-26-2021 End: 03-06-2023 Fluticasone Propionate 50 MC G/ACT Nasal Suspension Quantity: 16 Refills: 0 Ordered: 27-Sep-2021 DO Start : 26-Sep-2021 End : 06-Mar-2023 Complete guaiFENesin 20 mg/ml oral solution (20 sources) [...] HOURS NEEDED as needed for Pain 240 5 February 25, 2019 12:00am May 19, 2019 [...] Viscous. metroNIDAZOLE compounding ki t (8 sources) Mupirocin 2% external ointme nt (12 sources) [...] Quantity: 42 {Patch} Refills: 0 Ordered: 05-Jan-2019 Josefadanya Kya Start : 05-Jan-2019 End : 16-Feb-2019 [...] 4-6hrs PRN pain (12 sources) Oxycodone 5mg- 1-2 tabs Q 4-6hrs PRN pain Active penicillin v potassium 500 mg oral tablet (8 sources) Start: 01-08-2019 End: 10-16-2021 take 1 tablet by mouth every six hours Penicillin V Potassium 500 MG Oral Tablet TAKE 1 TABLET BY MOUTH EVERY 6 HOURS to completion Quantity: 28 Refills: 0 Ordered: 08-Jan-2019 DO Start : 08-Jan-2019 End : 16-Oct-2021 Complete prochlorperazine 10 mg oral tablet (20 sources) [...] Ordered: 26-Feb-2022 DO Start : 26-Feb-2022 Active silver sulfADIAZINE 10 mg/ml topical cream (20 sources) Sulfonamide Antibacterial Start: 03-27-2022 silver sulfADIAZINE (SSD) 1 % cream SSD 1 % External Cream Quantity: 85 Refills: 0 Start : 27-Mar-2022 Active 03/27/2022 Active Start: 03-27-2022 SSD 1 % Seam Taper Machine al Cream Quantity: 85 Refills: 0 Ordered: 27-Mar-2022 DO Start : 27-Mar-2022 Active Start: 02-06-2022 End: 04-12-2025 Silver Sulfadiazine 1 % crea m Discontinued 1 NMA TOPICAL TWICE A DAY as needed for skin peeling September 02, 2023 1:00am April 12, 2025 11:10am apply a 1.5 mm thickness to area of peeling sulfamethoxazole 40 mg/ml / trimethoprim 8 mg/ml oral suspension (20 sources) Dihydrofolate Reductase Inhibitor Antibacterial, Sulfonamide Antimicrobial Start: 12-15-2021 Sulfamethoxazole-Trimethopri m 200-40 MG/5ML Oral Suspension Quantity: 120 Refills: [...] Vitamin C TABS (20 sources) Start: 10-16-2021 Vitamin C T ABS Quantity: 0 Refills: [...] anterior floor of mouth and madibleSurgeon Rachel Izaguirrewler, with flap Donor site from left fibula and Left Alt, (11-14) Cancer of head and neck (1 source) History of malignant neoplasm of oral cavity; Translations: [Personal history 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, oral cavity, and pharynx] 06-14-2025 Episodic Cancer; other and unspecified primary (20 sources) [...] Translations: [B12 nutritional deficiency] 01-02-2019 Episodic Other circulatory disease (1 source) Vascular disorder; Translations: [Other disorders of arteries, arterioles and capillaries in diseases classified elsewhere] 06-10-2025 Chronic Other circulatory disease (1 source) Vascular disorder 06-14-2025 Episodic Other ear and sense organ disorders (13 sources) Sensorineural hearing loss, bilateral; Translations: [Sensorineural [...] dysphagia; Translations: [Other dysphagia] 04-13-2022 Episodic Other gastrointestinal disorders (4 sources) Other dysphagia; Translations: [Other dysphagia] Onset: 05-18-2025 08-30-2023 Episodic Other infections; including parasitic (20 sources) Disorder due to infection; Translations: [Infection] Resolved: 07-22-2023 12-15-2021 Episodic Comment on above: Pt asking for antibi otic and pain med Other injuries and conditions due to external causes (1 source) Radiation sickness, unspecified, sequela; Translations: [Late effect of radiation] 06-10-2025 Episodic Other lower respiratory disease (10 sources) Lung [...] nonspecific abnormal finding of lung field] Onset: 01-05-2025 Episodic Other lower respiratory disease (20 sources) Dyspnea; Translations: [Dyspnea, unspecified] 12-18-2021 Episodic Other nervous system disorders (20 sources) Pain due to neoplastic disease; Translations: [Neoplasm related pain (acute) (chronic)] 03-08-2021 Chronic Other nervous system disorders (18 sources) Neoplasm related pain (acute) (chronic); Translations: [Neoplasm related pain (acute) (chronic)] Chronic Other nervous system disorders (2 sources) Ulnar neuropathy; Translations: [Lesion of ulnar nerve, unspecified upper limb] Onset: 05-07-2025 05-07-2025 Chronic Other nervous system disorders (20 sources) Taste sense altered; Translations: [Disturbances of sensation of smell and taste] Episodic Other nervous system disorders (2 sources) Paresthesia of skin; Translations: [Paresthesia of skin] Onset: 05-11-2025 Episodic Other nutritional; endocrine; and metabolic disorders (20 sources) Body mass index less than 20; Translations: [Body mass index (BMI) of 19.0-19.9 in adult] 03-13-2021 Episodic Other nutritional; endocrine; and metabolic disorders (20 sources) Decreased body mass index; Translations: [Body mass index [BMI] 19.9 or less, adult] 12-15-2021 Episodic Other nutritional; endocrine; and metabolic disorders (8 sources) Weight decreased; Translations: [Abnormal weight loss] [...] breakdown] 07-24-2023 Episodic Other upper respiratory disease (7 sources) Tracheostomy present; Translations: [Tracheostomy status] Onset: 04-13-2024 08-31-2024 Chronic Other upper respiratory disease (6 sources) Dysphonia; Translations: [Dysphonia] 01-18-2025 Episodic Residual [...] daily, repeat lab at Aug apt Sep 13ne dx 7 Unclassified (20 sources) BMI 23.0-23.9, adult; Translations: [...] Radiation injury; 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] 05-17-2021 Unclassified (8 sources) Radiation fibrosis 05-17-2021 Past or Other Problems Problem Classification Problem Date Documented Da te Episodic/Chronic Open wounds of head; neck; and trunk (20 sources) Open wound of chin; Translations: [Open wound of jaw, without mention of complication] Onset: 08-31-2024 08-31-2024 Episodic Other gastrointestinal disorders (2 sources) Dysphagia, oropharyngeal phase; Translations: [Dysphagia, oropharyngeal phase] Onset: 09-02-2023 Episodic Other gastrointestinal disorders (1 source) Dysphagia, unspecified; Translations: [Dysphagia, unspecified] Onset: 11-10-2024 Episodic Other injuries and conditions due to external causes (20 sources) Adverse effect of radiation therapy; Translations: [Other specified aftercare] Onset: 08-29-2023 08-29-2023 Episodic Other injuries and conditions due to external causes (7 sources) Radiation sickness, unspecified, subsequent encounter; Translations: [Other specified aftercare] Onset: 08-29-2023 08-31-2024 Episodic Other lower respiratory disease (20 sources) Solitary pulmonary nodule; Translations: [Nodule of lung] Onset: 10-20-2024 04-14-2020 Episodic Comment on above: repeat CT in a year November 2019 Other non-traumatic joint disorders (20 sources) Joint [...] sources) s/p port placement Onset: 01-21-2019 04-22-2022 Unclassified (1 source) Adverse effect of radiation, sequela 06-14-2025 NEGATED: Highlighted row has not occurred!Residual codes; unclassified (5 sources) Disease Episodic Results Test Name Value Interpretation Reference Range Facility D/C Summary- SPon 06-15-2025 D/C Summary- SP [facility] Speech Pathology [facility] [address] [place] [address] / REHABILITATION SERVICES DISCHARGE SUMMARY MR#: [id number] Acct: [id number] Name: MY JAMA Rep #: [id number] : 1960 64 From: Latosha Boyer M.A., CCC-BUSINESS OBJECTS DEVELOPER Referring Dr.: Dr. 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 02/06/2022) w/ chronic tracheostomy. POC included ongoing assessment of diet tolerance, training in oropharyngeal exercises and neck ROM exercises in junction with myofascial release techniques, and jaw ROM exercise in junction with myofascial release techniques. He demonstrated good progress improving neck ROM and he completes home exercise program daily. Due to deficits in fine motor abilities of hands (bilaterally), he is unable to apply myofascial release techniques himself and the patient lives alone so no family training was able to be provided for completion of myofascial release. He currently tolerates a full oral diet of liquidized purees w/ small lumps and thin liquids, but he is at high risk for aspiration. Pt completes oral care frequently throughout the day to decrease his risk for aspiration related illnesses. The patient???s insurance is not authorizing additional visits at this time; however, if concern for worsening swallow function please re-consult ST for re- evaluation. He is at high risk for worsening swallow function given his hx of HNC described above. 06/15/25 1540 CC: YARI Gonzalez; Dr. Santiago Sellers, MW Signed [facility] SP/HP.SPREEVon 05-14-2025 SP/HP.SPREEV [facility] [address] [place] [address]. [address] [place] [address] / REEVALUATION / MEDICARE RECERTIFICATION SPEECH THERAPY MR#: [id number] Acct: [id number] Name: MY JAMA Rep #: [id number] : 1960 64 From: Latosha Boyer M.A., [facility]3]-BUSINESS OBJECTS DEVELOPER Referring Dr.: Dr. Santiago Sellers DO Insurance: [employer] SELF PAY INSURANCE Visit History Visit Info Date of Eval: 04/22/25 Today is Visit #: 49 Patient's Approved Number of Visits: 4 Insurance Date Limit: 05/29/25 Watch Assembly Instructor: SURJIT History Attending Doctor: Referring Doctor: Reason [...] tube was removed summer. He sustains himself fu lly on oral diet of liquidized purees / [...] intake. Hx of esophageal dysphagia managed by raw products director, Dr. Akhtar, s/p EGD w/ botox injection [...] worsening swallow function. He has participated in 49 visits during this POC with implementation of myofascial release and jaw massage in junction w/ oropharyngeal strengthening, neck ROM, and jaw ROM exercise programs. The patient has progressed from full liquidized puree / thin liquid diet to liquidized purees with small lumps / thin liquids. He has demonstrated progress in neck ROM and jaw ROM w/ jaw stretching, massage, and myofascial release during this POC of 49 visits. Baseline neck ROM and jaw opening values from 09/27/2023: Left neck rotation - 16 degrees, Right neck rotation ??? 19 degrees; 09/20/2023 Jaw opening ??? 36mm. 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 Goal 1 Status: NOT MET. Patient's jaw opening remained the same (44mm measured from upper to lower lip) during the past 4 sessions. Previous Goal #2: The patient will complete n (more content not included)... [facility] Relevant diagnostic tests/la boratory data Narrativeon 05-07-2025 Fall risk assessment no [employer] Work Phone: MEDS REVIEW Documentation of current medications (procedure) [facility] Work Phone: MEDS REVIEWD Medications reviewed with changes [employer]. Work Phone: XRAY HX of the bilateral brooks ds on 02/18/2025 at [facility]. Work Phone: SP/HP.SPREEVon 07-31-2025 SP/HP.SPREEV [facility] [address] [place] [address] / REEVALUATION / MEDICARE RECERTIFICATION SPEECH THERAPY MR#: [id number] Acct: [id number] Name: MY JAMA Rep #: [id number] : 1960 64 From: Latosha Boyer M.A., [facility]3]-BUSINESS OBJECTS DEVELOPER Referring Dr.: Dr. Santiago Sellers, DO Insurance: [employer] SELF PAY INSURANCE Visit History Visit Info Date of Eval: 04/22/25 Today is Visit #: 45 Patient's Approved Number of Visits: 4 Insurance Date Limit: 04/28/25 Watch Assembly Instructor: SURJIT History Attending Doctor: Referring Doctor: Reason [...] intake. Hx of esophageal dysphagia managed by raw products director, Dr. Akhtar, s/p EGD w/ botox injection [...] He has demonstrated progress in neck ROM and jaw ROM w/ jaw stretching, massage, and myofascial release during this POC of 45 visits. Baseline neck ROM and jaw opening values from 09/27/2023: Left neck rotation - 16 degrees, Right neck rotation ??? 19 degrees; 09/20/2023 Jaw opening ??? 36mm. Smoking Status: Former smoker Diagnosis Diagnosis: SCC of mandibular alveolar ridge C41.1 Pain Is pain an issue with your current prescribed condition?: No Personal Preferred language: Danish Patient Allergies Allergies Allergies: Allergies No Known Allergies Allergy (Verified 04/15/25 07:36) Previous/Current Goals Goals 1-5 Previous Goal #1: The patient will complete jaw strength, coordination, and ROM exercises in junction w/ jaw massage and myofascial release s/p chemoradiation treatment to improve mastication abilities (X10 repetitions, 3-5X daily). He gained 2mm of jaw opening during these past 4 sessions. Goal 1 Status: PROGRESSING - Pt completes jaw opening as BUSINESS OBJECTS DEVELOPER applies MFR techniques to pt's masseter and pterygoids for 2-3 min du (more content not included)... [facility] EGD Reporton 04-15-2025 EGD Report [facility] Medical Records Department [address] [place] [address] EGD Report MR#: [id number] Acct: [id number] Name: MY JAMA Rep #: [id number] : 1960 64 From: Elliott Akhtar DO PCP: YARI Santillan Status:REG [facility] Patient Name: My Jama Procedure Date: 04/15/2025 8:26 AM Date of : 1960 Age: 64 Procedure: Upper GI endoscopy Indications: Dysphagia Providers: Elliott Akhtar DO Referring MD: Yari Santillan Medicines: Monitored Anesthesia Care Patient Profile: This is a 64 year old male. Refer to note in patient chart for documentation of history and physical. Patient has symptoms of dysphagia with both liquids and solids. Complications: [...] patient has taken no anticoagulant or antiplatelet agents except for NSAID medication. ASA Grade Assessment: II - A patient [...] and oxygen saturations were monitored continuously. The Endoscope was introduced through the mouth, and advanced to the second part of duodenum. The upper GI endoscopy was accomplished without difficulty. The patient tolerated the procedure well. Scope In: 8:40:45 AM Scope Out: 8:51:57 AM Total Procedure Duration Time 0 hours 11 minutes 12 seconds Findings: One benign-appearing, intrinsic severe stenosis was found 18 to 24 cm from the incisors. This stenosis measured 5 mm (inner diameter) x 6 cm (in length). The stenosis was traversed after dilation. A guidewire was placed and the scope was withdrawn. Dilation was performed with a Savary dilator with no resistance at 51 Fr. The dilation site was examined following endoscope reinsertion and showed moderate improvement in luminal narrowing. Estimated blood loss: none. One benign-appearing, intrinsic moderate (circumferential scarring or stenosis; an endoscope may pass) stenosis was found 20 to 25 cm from the incisors. The stenosis was traversed. Area was successfully injected with 100 units botulinum toxin. The entire examined stomach was normal. No gross lesions were noted in the entire examined duodenum. Impression: - Benign-appearing esophageal stenosis. Dilated. - Benign-appearing esophageal stenosis. Injected with botulinum toxin. - Normal stomach. - No gross lesions in the entire examined duodenum. - No specimens collected. Recommendation: - Discharge patient to home. - Resume previous diet. - Continue present medications. Procedure Code(s): --- Professional --- 64415, Esophagogastroduodenosc opy, flexible, transoral; with insertion of guide wire followed by passage of dilator(s) through esophagus over guide wire 41736, 59,51, Esophagogastroduodenosc opy, flexible, transoral; with directed submucosal injection(s), any substance CPT copyright 2021 [employer]. All rights reserved. The codes documented in this report are preliminary and upon building materials sales attendant review may be revised to meet current compliance requirements. Elliott Akhtar DO 04/15/2025 8:56:45 AM This report has been signed electronically. Number of Addenda: 0 Note Initiated On: 04/15/2025 8:26 AM 04/15/2557 Date Elliott Akhtar DO Cosigner Signature: Date (if indicated) CC: 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 Sadie Santiago; Elliott Akhtar, (more content not included)... [facility] MR/POSTOP.[facility] 04-15-2025 MR/POSTOP.[facility] Medical Records Department [address] [place] [address] Anesthesia Postop Eval I 04/15/25900 MR#: [id number] Acct: [id number] Name: MY JAMA Rep #: [id number] : 1960 64 From: Romulo Lockett PCP: Sadie Santiago, 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 Status:REG SDC Y Race: C Location: [place] [address] Anesthesia: Postop Eval I Current Vital Signs Temperature: 97.9 F Pulse Rate: 100 Blood Pressure: 87/59 Respiratory Rate: 16 Pulse Ox: 100 Oxygen Delivery Method: Room Air Assessment Airway patent: Yes Spontaneous unlabored respirations: Yes Mental status: Asleep nausea: No Vomiting: No Anesthesia Complication: No Fluid Hydration Crystalloid volume administer (ml): 300 Total IV fluid infused: 300 Progress Note Anesthesia document: Postop Eval 1 completed: Yes 07/24/25 0902 Date Romulo Manley Signature: Date CC: Signed [facility] MR/[id number] 04-15-2025 MR/POSTOPAN2 [facility] Medical Records Department [address] [address] Anesthesia Postop Eval II 04/15/25 102 MR#: [id number] Acct: [id number] Name: MY JAMA Rep #: [id number] : 1960 64 From: Roz Collins MD PCP: Sadie Santiago 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 Status:[facility] Y Race: C Location: [place] Anesthesia Postop Eval I Sum Postop Eval Completion status Anesthesia document: Postop Eval 1 completed: Yes Anesthesia Postop Eval I Summary Anesthesia Postop Eval I Summary: Anesthesia Postop Eval I: Assessment Summary Airway patent Yes 04/15/25 09:02 [email or web address] Spontaneous unlabored Yes 04/15/25 09:02 [email or web address] respirations Mental status Asleep 04/15/25 09:02 [email or web address] nausea No 04/15/25 09:02 [email or web address] Vomiting No 04/15/25 09:02 [email or web address] Anesthesia Postop Eval I: Fluid Summary Crystalloid volume administer 300 04/15/25 09:02 [email or web address] (ml) Colloids volume administered ( ml) Blood Product volume administered (ml) Total IV fluid infused 300 04/15/25 09:02 [email or web address] Anesthesia Postop Eval I: Summary Notes Anesthesia Complication No 04/15/25 09:02 [email or web address] Anesthesia Complication Comment: Post-operative progress note Anesthesia: Postop Eval II Evaluation Mental status: Awake Pain Level: 1 nausea: No Vomiting: No Complications Anesthesia Complication: No 04/15/25 102 Date Roz Collins MD Cosignallison Signature: Date CC: Signed [facility] NCS and/or EMG Patienton NCS and/or EMG Patient [facility] Pulmonary Services/Neurology [address] [place] [address] MR#: [id number] Acct: [id number] Name: MY JAMA Rep #: [id number] : 1960 64 From: Loretta Rausch MD Referring Dr: James Stephens DO Status: REG C LI Location: [facility] Date: 03/31/25 Sex: M C NCS [...] Multi Select Codes Neurology Neurology Interp Codes: 56616-88 Musc test done w/n test comp (interp) and 86749-23 Nrv cndj tst 5-6 studies (interp) 03/31/25 1533 Date Loretta Rausch MD CC: 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 Sadie Santiago; Dr. Loretta Rausch MD; Dr. James Stephens, DO Date Dictated: 03/31/25 1530 Date Transcribed: 03/31/251529 Radio Communications Superintendent: BROCK Signed [facility] SP/HP.SPREEVosae 03-29-2025 SP/HP.SPREEV [facility] Speech [facility] [address] [place] [address] / REEVALUATION / MEDICARE RECERTIFICATION SPEECH THERAPY MR#: [id number] Acct: [id number] Name: MY JAMA Rep #: [id number] : 1960 64 From: Latosha Boyer M.A., [facility]3]-BUSINESS OBJECTS DEVELOPER Referring Dr.: Dr. Santiago Sellers, Insurance: [facility] Visit History Visit Info Date of Eval: 03/17/24 Today is Visit #: 41 Insurance Date Limit: 03/25/25 Watch Assembly Instructor: SURJIT History Attending Doctor: Referring Doctor: Reason [...] intake. Hx of esophageal dysphagia managed by raw products director, Dr. Akhtar, s/p EGD w/ botox injection [...] opening (03/17/2025 - 45mm, 03/25/2025 - 46mm). BUSINESS OBJECTS DEVELOPER is completing this re- evaluation to request additional dysphagia therapy visits as pt has reached his insurance end date for authorized visits. He missed 1 visit due to unexpected plans coming up. Diagnosis Diagnosis: SCC of mandibular alveolar ridge C41.1 Pain Is pain an issue with your current prescribed condition?: No Personal Preferred language: Danish Patient Allergies Allergies Allergies: Allergies No Known Allergies Allergy (Verified 02/02/25 09:31) Previous/Current Goals Goals 1-5 Previous Goa (more content not included)... [facility] NCS and/or EMG Patienton NCS and/or EMG Patient [facility] Pulmonary Services/Neurology [address] [place] [address] MR#: [id number] Acct: [id number] Name: MY JAMA Rep #: [id number] : 1960 64 From: Loretta Rausch MD Referring Dr: James Stephens DO Status: REG C LI Location: [facility] Date: 03/03/25 Sex: M C NCS and/or [...] Multi Select Codes Neurology Neurology Interp Codes: 82510-71 Musc test done w/n test comp (interp) (2) and 69979-92 Nrv cndj test 11-12 studies (interp) 03/03/25 1528 Date Loretta Rausch MD CC: 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 Sadie Santiago; Dr. Loretta Rausch MD; Dr. James Stephens, Date Dictated: 03/03/25 151 Date Transcribed: 03/03/251518 Radio Communications Superintendent: BROCK Signed [facility] Gastroenterology Visit Repor ton 02-11-2025 Gastroenterology Visit Report [facility] Gastroenterology [address] [place] [address] OFFICE VISIT Date of Service: 02/11/25 MR#: [id number] Acct: [id number] Name: MY JAMA Rep #: [id number] : 1960 Provider: Elliott Akhtar DO Age/Sex: 64/M Location: [facility] Status: Signed Intake Vital Signs 01/05/25 11:22 [...] or concerns at this time. [facility] Medical History Wears hearing aid [...] to the office today for follow up. 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 [facility] Radiation Oncology Visiton 0 02-02-2025 Radiation Oncology Visit [facility] [address] [place] [address] OFFICE VISIT Date of Service: 02/02/25928 MR#: [id number] Acct: [id number] Name: MY JAMA Rep #: [id number] : 1960 From: Santiago Sellers DO Age/Sex: 64/M Location: [facility] Status: Signed Intake Vital Signs 08/06/24 09:41 [...] targeted left tonsillectomy (01/30/2019). From 02/10/2019 ??? 03/25/ (more content not included)... [facility] SP/HP.SPREEVon 01-21-2025 SP/HP.SPREEV [facility] [address] [place] [address]. [address] [place] [address] / REEVALUATION / MEDICARE RECERTIFICATION SPEECH THERAPY MR#: [id number] Acct: [id number] Name: MY JAMA Rep #: [id number] : 1960 64 From: Latosha Boyer M.A., [facility]3]-BUSINESS OBJECTS DEVELOPER Referring Dr.: Dr. Santiago Sellers, DO Insurance: [employer] SELF PAY INSURANCE Visit History Visit Info Date of Eval: 03/17/24 Visit: 1 Insurance Date Limit: 12/26/24 Watch Assembly Instructor: SURJIT History Attending Doctor: Referring Doctor: Reason [...] intake. Hx of esophageal dysphagia managed by raw products director, Dr. Akhtar, s/p EGD w/ botox injection [...] current prescribed condition?: No Personal Preferred language: Danish Patient Allergies Allergies Allergies: Allergies No Known [...] measured fro (more content not included)... [facility] Oncology Visit Reporton 12-22 Oncology Visit Report [facility] [address] [place] [address] OFFICE VISIT Date of Service: 01/05/25 1103 MR#: [id number] Acct: [id number] Name: MY JAMA Rep #: [id number] : 1960 From: Quincy Simpson MD Age/Sex: 64/M Location: [facility] Status: Signed HPI Subjective Date of Service [...] FINDINGS: Supraclavicular: No acute process within the duqzm-dj-thim. Body wall soft tissues: No acute process. [...] AE1-3 (AE1/AE3/PCK26) positive CK7 (OV-TL12/30) negative CK8 (51dckcT95) positive, weak CK20 (KS20.8) negative TTF-1 (8G7G3/1) [...] 2019 PE (more content not included)... [facility] Chest WITH Contraston 2024 Chest WITH Contrast [facility] Imaging Services [address] [address] Chest WITH Contrast MR#: [id number] Acct: [id number] Name: MY JAMA Rep #: [id number] : 1960 M 64 From: Nayely Whyte MD PCP: Sadie Santiago, 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 Status: REG CLI Study: Chest WITH Contrast Date of Exam: 12/29/24 Exam# [id number] Ordering Dr: Quincy Simpson MD PROCEDURE: CHEST [...] within the right upper lobe. Reading Location: [facility] CC: YARI Santiago; Dr. Quincy Simpson MD Radio Communications Superintendent: Signed Normal [facility] Modified Barium Swallow Stud yon 12-17-2024 Modified Barium Swallow Study [facility] Speech Pathology [address] [place] [address] Modified Barium Swallow Study MR#: [id number] Acct: [id number] Name: MY JAMA Rep #: [id number] : 1960 64 From: Latosha Boyer M.A., [facility]3]-BUSINESS OBJECTS DEVELOPER Verbal discussion with patient about POC 12/18/2024: BUSINESS OBJECTS DEVELOPER attempted to call the patient 12/17/[address] POC after interpretation of MBSS, but pt had phone difficulties. Pt came into the office 12/18/2024 for this discussion. Unfortunately, the patient is not a candidate for participation in [facility] (MDTP) following results of MBSS revealing silent aspiration. Pt also has contraindications including severe fibrosis, presence of trach, and esophageal dysphagia. BUSINESS OBJECTS DEVELOPER recommended continuing with therapy 3- 4X/week, X3-5 weeks for implementation of oropharyngeal strengthening, jaw ROM, and neck ROM exercises in junction w/ myofascial release. Pt is unable to attend therapy this coming Saturday, and the BUSINESS OBJECTS DEVELOPER is out of the office this upcoming Saturday. Myofascial release is best completed in a more intensive therapy model (BUSINESS OBJECTS DEVELOPER recommends 3-4X/week, X3-5 weeks) to be effective. Pt requested resuming dysphagia therapy after BUSINESS OBJECTS DEVELOPER submits re-evaluation as he would only be [...] intake. Hx of esophageal dysphagia managed by raw products director, Dr. Akhtar, s/p EGD w/ botox injection [...] patient was interested in the program, so BUSINESS OBJECTS DEVELOPER recommended this MBSS as re- (more content not included)... Normal [facility] EGD Reporton 10-21-2024 EGD Report [facility] Medical Records Department [address] [facility] [place] [address] EGD Report MR#: [id number] Acct: [id number] Name: MY JAMA Rep #: [id number] : 1960 64 From: Elliott Akhtar DO PCP: YARI Santillan Status:REG [facility] Patient Name: My Jama Procedure Date: 10/21/2024 [...] present medications. Procedure Code(s): --- Professional --- 09571, Esophagogastroduodenosc opy, flexible, transoral; with insertion of guide wire followed by passage of dilator(s) through esophagus over guide wire CPT copyright 2021 [employer]. All rights reserved. The codes documented in this report are preliminary and upon building materials sales attendant review may be revised to meet current compliance requirements. Elliott Akhtar DO 10/21/2024 7:30:22 AM This report has been signed electronically. Number of Addenda: 0 Note Initiated On: 10/21/2024 6:29 AM 10/21/24730 Date Elliott Doe Signature: Date (if indicated) CC: YARI Santiago; Elliott Akhtar DO Date Dictated: 10/21/24628 Date Transcribed: Radio Communications Superintendent: BK Signed [facility] MR/POSTOP.[facility] 10-21-2024 MR/POSTOP.[facility] Medical Records Department [address] [place] [address] Anesthesia Postop Eval I 10/21/24730 MR#: [id number] Acct: [id number] Name: MY JAMA Rep #: [id number] : 1960 64 From: Romulo Lockett PCP: YARI Santillan Status:REG SDC Y Race: C Location: [place] [address] Anesthesia: Postop Eval I Current Vital Signs [...] Romulo Manley Signature: Date CC: Signed Normal [facility] MR/WDEBSTJF7hm 10-21-2024 MR/POSTOPAN2 [facility] Medical Records Department [address] [place] [address] Anesthesia Postop Eval II 10/21/2433 MR#: [id number] Acct: [id number] Name: MY JAMA Rep #: [id number] : 1960 64 From: Ankit Clarke MD PCP: Sadie Santiago, 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 Status:[facility] Y Race: C Location: EN Anesthesia Postop [...] No Vomiting: No Complications Anesthesia Complication: No 10/22/24714 Date Ankit Clarke MD Cosigner Signature: Date CC: Signed Normal [facility] Oncology Visit Reporton Oncology Visit Report [facility] [address] [address] OFFICE VISIT Date of Service: 09/28/24 1202 MR#: [id number] Acct: [id number] Name: MY JAMA Rep #: [id number] : 1960 From: Quincy Simpson MD Age/Sex: 64/M Location: [facility] Status: Signed HPI Subjective Date of Service [...] FINDINGS: Supraclavicular: No acute process within the qwlom-an-otcj. Body wall soft tissues: No acute process. [...] AE1-3 (AE1/AE3/PCK26) positive CK7 (OV-TL12/30) negative CK8 (94aixzD50) positive, weak CK20 (KS20.8) negative TTF-1 (8G7G3/1) [...] 2019 PE (more content not included)... Normal [facility] SP/HP.SPREEVon 09-22-2024 SP/HP.SPREEV [facility] Speech Pathology [facility] [address] [place] [address] / REEVALUATION / MEDICARE RECERTIFICATION SPEECH THERAPY MR#: [id number] Acct: [id number] Name: MY JAMA Rep #: [id number] : 1960 64 From: Latosha Boyer M.A., [facility]3]-BUSINESS OBJECTS DEVELOPER Referring Dr.: Dr. Santiago Sellers, Insurance: [employer] S[employer] SELF PAY INSURANCE Visit History Visit Info Date of Eval: 03/17/24 Visit: 23 Insurance Date Limit: 09/22/24 Watch Assembly Instructor: SURJIT History Attending Doctor: Referring Doctor: Reason [...] intake. Hx of esophageal dysphagia managed by raw products director, Dr. Akhtar, s/p EGD w/ botox injection [...] current prescribed condition?: No Personal Preferred language: Danish Patient Allergies Allergies Allergies: Allergies No Known [...] junction with myofascial release to improve and (more content not included)... Normal [facility] Chest Insp/Exp 2 Viewon 12-2 Chest Insp/Exp 2 View [facility] Imaging Services [address] [place], [place] [address] Chest Insp/Exp 2 View MR#: [id number] Acct: [id number] Name: MY JAMA Rep #: [id number] : 1960 64 From: Narendra Kincaid MD PCP: YARI Santillan Status: REG CLI Study: Chest Insp/Exp 2 View Date of Exam: 09/15/24 Exam# [id number] Ordering Dr: Loretta Jade NP-Damaris [id number] STUDY: X-RAY CHEST REASON FOR EXAM: Male, [...] EST , CC: YARI Santiago; YARI Jade Radio Communications Superintendent: Signed Normal [facility] Chest Insp/Exp 2 View [facility] Imaging Services [address] [place] [address] 833901 Chest Insp/Exp 2 View MR#: [id number] Acct: [id number] Name: MY JAMA Rep #: [id number] : 1960 64 From: Narendra Kincaid MD PCP: YARI Santillan Status: REG CLI Study: Chest Insp/Exp 2 View Date of Exam: 09/15/24 Exam# [id number] Ordering Dr: Loretta Jade [id number] STUDY: X-RAY CHEST REASON FOR EXAM: Male, [...] EST , CC: YARI Santiago; YARI Jade Radio Communications Superintendent: Signed Normal [facility] International normalized rat io (INR) calculationOrdered By: Loretta Jade on 09-15-2024 INR Coag (Bld) [Relative time] 1.0 {INR} [facility] Operative Reporton Operative Report [facility] Medical Records Department [address] [place] [address] Operative Report 09/15/24 1122 MR#: [id number] Acct: [id number] Name: MY JAMA Rep #: [id number] : 1960 64 From: Loretta BUNN PCP: YARI Santillan Status:REG CLI Location: CT Problems Associated Problem List Diagnoses (1) Right upper lobe pulmonary nodule: Procedures Radiology Radiology CT Procedures: 56723 Biopsy Lung Operative Report (Standard) Operative Information Date of Procedure: 09/15/24 Pre-Operative Diagnosis: right upper lobe lung nodule Post-Operative Diagnosis: right upper lobe lung nodule Surgery/Procedure Performed: ct guided lung biopsy deli cook: No Type of Anesthesia: IV Sedation Procedure Start Time: 09:54 Procedure Stop Time: 10:18 Select all DRAINS/GRAFTS/IMPLANTS that apply: None Estimated Blood Loss: scant Specimen collected: Yes Description of specimen(s) removed: 6 biopsy cores Description of surgery: PROCEDURE: CT GUIDED CORE NEEDLE LUNG BIOPSY ORDERING PROVIDER: Dr. Simpson INDICATION: Male, 64 years old. Right upper lobe lung nodule. PROVIDER: DORIS Trujillo CONSENT: Written informed consent was obtained having [...] Jade; Dr. Quincy Simpson MD Signed Normal [facility] Partial Thromboplast Timeon 09-15-2024 aPTT Coag (Bld) [Time] 31.3 s Normal 24.1-36.2 [facility] Comment on above: Performed By: #### L 100.1900, L300.3900, L300.4310 ####[facility] [address] [place], [address] Platelet countOrdered By: Christal Jade on 09-15-2024 Platelets (Bld) [#/Vol] 291 10*3/uL Normal 150-450 [facility] Comment on above: Performed By: #### L 100.1900, L300.3900, L300.4310 #### [facility] Laboratory [address] [place], [address] Prothrombin Time w/INRon INR Coag (PPP) [Relative time] 1.0 {INR} Normal [facility] Comment on above: Performed By: #### L 100.1900, L300.3900, L300.4310 ####[facility] [address] [place], [address] PT Coag (PPP) [Time] 12.8 s Normal 11.7-14.9 [facility] Comment on above: Performed By: #### L 100.1900, L300.3900, L300.4310 ####[facility] [address] [place], [address] Prothrombin timeOrdered By: Loretta Jade on 09-15-2024 PT Coag (PPP) [Time] 12.8 s 11.7-14.9 [facility] Special Stain Group IIon Special Stain Group II ------ Patient Age/Sex Location Account Attending Physician MY JAMA 64/M CT [id number] Dr. Quincy Simpson MD Specimen: [id number] Received: 09/15/24 Status: ALEX Sindhu Num: [id number] Spec Type: ASP RAD Subm Dr: Dr. [...] specimen is totally submitted in one cassette. /SJ:cc 09/15/24 TC:5 [facility] [address], [address]: Patient Age/Sex Location Account Attending Physician MY JAMA 64/M CT [id number] Dr. Quincy Simpson MD Signed (signature on file) Dr. Laurent Cope MD 09/17/24 1223 Normal [facility] Comment on above: Performed By: #### P SSII ####[facility] [address] [place], [address] aPTT Coag (PPP) [Time]Ordere d By: Loretta Jade on 09-15-2024 aPTT Coag (Bld) [Time] 31.3 s 24.1-36.2 [facility] Oncology Visit Reporton 08-23 Oncology Visit Report [facility] [address] [place] [address] OFFICE VISIT Date of Service: 09/07/24 1341 MR#: [id number] Acct: [id number] Name: MY JAMA Yamilet Rep #: [id number] : 1960 From: Quincy Simpson MD Age/Sex: 64/M Location: [facility] Status: Signed HPI Subjective Date of Service [...] FINDINGS: Supraclavicular: No acute process within the yqsck-ea-clbp. Body wall soft tissues: No acute process. [...] AE1-3 (AE1/AE3/PCK26) positive CK7 (OV-TL12/30) negative CK8 (53jlxlJ38) positive, weak CK20 (KS20.8) negative TTF-1 (8G7G3/1) [...] 2019 PE (more content not included)... Normal [facility] CREATININE FINGERSTICKon CREATININE WB < 1.0 Normal 0.70-1.30 [facility] Comment on above: Performed By: #### L 9100.0200 ####[facility] [address] [place], [address] EGFR WB > 60.0000 Normal >60 [facility] Comment on above: Performed By: #### L 9100.0200 ####[facility] [address] [place], [address] Chest WITH Contraston 2023 Chest WITH Contrast [facility] Imaging Services [address] [place] [address] Chest WITH Contrast MR#: [id number] Acct: [id number] Name: MY JAMA Rep #: [id number] : 1960 M 64 From: Bib ghosh MD PCP: Sadie Santiago, 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 Status: REG CLI Study: Chest WITH Contrast Date of Exam: 08/25/24 Exam# [id number] Ordering Dr: [place] [id number] STUDY: CT CHEST WITH CONTRAST REASON FOR [...] CC: YARI Santiago; Dr. Quincy Simpson MD Radio Communications Superintendent: Signed Normal [facility] Creatinine measurement at dsideOrdered By: Quincy Simpson on 08-25-2024 Bedside Creatinine < 1.0 mg/dL 0.70-1.30 [facility] EGFROrdered By: Quincy peters on 08-25-2024 Bedside Estimated GFR (eGFR) > 60.0000 mL/min >60 [facility] Gastroenterology Visit Repor ton 08-14-2024 Gastroenterology Visit Report [facility] Gastroenterology [address] [place] [address] OFFICE VISIT Date of Service: 08/14/24 MR#: [id number] Acct: [id number] Name: MY JAMA Rep #: [id number] : 1960 Provider: Elliott Akhtar DO Age/Sex: 64/M Location: [facility] Status: Signed Intake Vital Signs 02/03/24 14:06 [...] to the office today for follow up. 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 Normal [facility] Radiation Oncology Visiton 1 10-06-2023 Radiation Oncology Visit [facility] [place] [address] OFFICE VISIT Date of Service: 08/06/2438 MR#: [id number] Acct: [id number] Name: MY JAMA Rep #: [id number] : 1960 From: Santiago Sellers DO Age/Sex: 64/M Location: [facility] Status: Signed Intake Vital Signs [...] 6996 cG (more content not included)... Normal [facility] SP/HP.SPREEVon 07-17-2024 SP/HP.SPRV [facility] Speech Pathology [facility] [address] [place] [address]. [address] [place] [address] / REEVALUATION / MEDICARE RECERTIFICATION SPEECH THERAPY MR#: [id number] Acct: [id number] Name: MY JAMA Rep #: [id number] : 1960 64 From: Latosha Boyer M.A., [facility]3]-BUSINESS OBJECTS DEVELOPER Referring Dr.: Dr. Santiago Sellers, Insurance: [employer] S[employer]IOR [employer] SELF PAY INSURANCE Visit History Visit Info Date of Eval: 03/17/24 Visit: 1 Watch Assembly Instructor: SURJIT History Attending Doctor: Referring Doctor: Reason [...] intake. Hx of esophageal dysphagia managed by raw products director, Dr. Akhtar, s/p EGD w/ botox injection [...] current prescribed condition?: No Personal Preferred language: Danish Patient Allergies Allergies Allergies: Allergies No Known [...] 3- 5 (more content not included)... Normal [facility] XR CHEST 2 VIEWSon XR CHEST 2 VIEWS Interpreted By: Asa Macdonald, STUDY: XR CHEST 2 VIEWS INDICATION: Signs/Symptoms:cancer surveillance, aspiration. COMPARISON: November 13, 2021 ACCESSION NUMBER(S): [id number] ORDERING CLINICIAN: RACHEL BROOKS FINDINGS: No consolidation, effusion, edema, or pneumothorax. Tracheostomy tube again noted. IMPRESSION: No evidence of acute intrathoracic abnormality. Signed by: Asa Joshi 09/05/2023 1:51 PM Dictation workstation: [id number] [facility] Basophil percentageOrdered B y: Quincy Simpson on 07-29-2023 Basophil percentage < 0.9 mg/dL 0.70-1.30 [facility] No Panel InformationOrdered By: Quincy Simpson on 07-29-2023 Bedside Estimated GFR (eGFR) > 60.0000 mL/min >60 [facility] CBC, PLATELETS & AUT DIFF (0 0477)Ordered By: Public Services Assistant on 07-22-2023 Basophils (Bld) [#/Vol] 0.0 10*3/uL [...] MCHC (RBC) [Mass/Vol] 33.5 g/dL Normal 31.5-35.7 [facility] Work Phone: MCV (RBC) [Entitic vol] 92 fL Normal 79-97 [facility]; [facility] Work Phone: Monocytes (Bld) [#/Vol] 0.5 10*3/uL Normal 0.1-0.9 [facility] Internal Medicine; [facility] Work Phone: Monocytes/100 WBC (Bld) 8 % Normal [facility]; [facility] Work Phone: Neutrophils (Bld) [#/Vol] 4.2 10*3/uL Normal 1.4-7.0 [facility] Internal Medicine; [facility] Work Phone: Neutrophils/100 WBC (Bld) 70 % Normal [facility] Internal Medicine; [facility] Work Phone: Platelets (Bld) [#/Vol] 284 10*3/uL Normal 150-450 [facility] Internal Medicine; [facility] Work Phone: RBC (Bld) [#/Vol] 4.29 10*6/uL Normal 4.14-5.80 [facility] Internal Medicine; [facility] Work Phone: WBC (Bld) [#/Vol] 6.0 10*3/uL Normal 3.4-10.8 [facility] Internal Medicine; [facility] Work Phone: METABOLIC PANEL, COMPREHENSI VE ([id number])Ordered By: Public Services Assistant on 07-22-2023 Albumin [Mass/Vol] 4.2 g/dL Normal 3.9-4.9 [facility] Internal Medicine; [facility] Work Phone: Albumin/Globulin [Mass ratio] 1.4 {ratio} Normal 1.2-2.2 [facility] Internal Medicine; [facility] Work Phone: ALP [Catalytic activity/Vol] 103 U/L Normal 44-121 [facility]; [facility] Internal Medicine Work Phone: ALT [Catalytic activity/Vol] 15 U/L Normal 0-44 [facility] Internal Medicine; [facility] Internal Medicine Work Phone: AST [Catalytic activity/Vol] 20 U/L Normal 0-40 [facility] Internal Medicine; [facility] Internal Medicine Work Phone: Bilirubin [Mass/Vol] 0.4 mg/dL Normal 0.0-1.2 [facility]; [facility] Internal Medicine Work Phone: Calcium [Mass/Vol] 9.4 mg/dL Normal 8.6-10.2 [facility] Internal Medicine; [facility] Internal Medicine Work Phone: Chloride [Moles/Vol] 101 mmol/L Normal 96-106 [facility] Internal Medicine; [facility] Internal Medicine Work Phone: CO2 [Moles/Vol] 26 mmol/L Normal 20-29 [facility] Internal Medicine; [facility] Internal Medicine Work Phone: Creatinine [Mass/Vol] 0.49 mg/dL Abnormal 0.76-1.27 [facility] Internal Medicine; [facility] Internal Medicine Work Phone: Globulin (S) [Mass/Vol] 2.9 g/dL Normal 1.5-4.5 [facility] Internal Medicine; [facility] Internal Medicine Work Phone: Glucose [Mass/Vol] 108 mg/dL Abnormal 70-99 [facility] Internal Medicine; [facility] Internal Medicine Work Phone: Potassium [Moles/Vol] 4.4 mmol/L Normal 3.5-5.2 [facility] Internal Medicine; [facility] Internal Medicine Work Phone: Protein [Mass/Vol] 7.1 g/dL Normal 6.0-8.5 [facility] Internal Medicine; [facility] Internal Medicine Work Phone: Sodium [Moles/Vol] 140 mmol/L Normal 134-144 [facility] Internal Medicine; [facility] Internal Medicine Work Phone: Urea nitrogen [Mass/Vol] 14 mg/dL Normal 8-27 [facility] Internal Medicine; [facility] Internal Medicine Work Phone: Urea nitrogen/Creatinine [Mass ratio] 29 mg/mg Abnormal 10- [facility]; [facility] Work Phone: METABOLIC PANEL, COMPREHENSIVE ([phone]) 117 mL/min/1.73 Normal [facility] Internal Medicine; [facility] Work Phone: THYROXINE FREE ([phone])Ordere d By: Public Services Assistant on 07-22-2023 Free T4 [Mass/Vol] 1.44 ng/dL Normal 0.82-1.77 Compre hensive Internal Medicine; [facility] Work Phone: TSH (THYROID STIMULATING HOR NIK) ([phone])Ordered By: Public Services Assistant on 07-22-2023 TSH Qn 2.430 {uIU/mL} Normal [...] Apr 25 2023 4:16PM EST (Author) Normal [facility] Office Visit (Audiology)on 04-04-2023 Follow-up visit Diagnoses/Problems [...] Nom (Unsp spec) No anaerobic bacteria isolated. [facility] Gram stain for investigation of transfusion reactionOrdered By: Joya Galvez on 04-03-2023 Microscopic observation Gram stain Nom (Unsp spec) [facility] Routine wound cultureOrdered By: Joya Galvez on 04-03-2023 Bacteria identified Cx Nom (Wound) No growth aerobically. [facility] Office Visit (Audiology)on 03-14-2023 Follow-up visit Diagnoses/Problems Bilateral sensorineural hearing [...] pricing and styles. Will order binaural Phonak [employer] L50-R hearing aids in color P5 with size 2 M receivers. Will use the small vented domes. 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 He has had routine follow-ups on his [...] Capsule Vitals Vital Signs Recorded: 06Mar2023 08:52AM Cwwvhftkwid98.4 F Heart Rate76 Ninfjqup213 Opeviuxhe02 Height5 ft 5.5 in Ofwadp671 lb BMI Xknetukkia92.48 kg/m2 BSA Calculated1.63 Tobacco Useb) No Falls [...] conjunctivitis. EAR (more content not included)... Normal [facility] Office Visit (Audiology)on 03-06-2023 Follow-up visit [...] hearing loss for both ears. Speech: Speech supervisor waterworks thresholds were in good agreement with pure tone testing. Speech discrimination results were good at elevated presentation levels. Signatures Electronically signed by : Aleks Quiroz; Mar 06 2023 9:30AM EST (Author) Normal [facility] Tobacco Screening.on 023 Fall risk assessment a) No falls within the last year [facility] Work Phone: Tobacco use status [facility] b) No M [facility] Work Phone: Established Visit (Otolaryng ology)on 02-25-2023 [...] here for cancer follow up. He has R4U6lV8 oral cavity SCCa s/p triple, trach, PEG, [...] Chief Complaint trach change History of Present IllnessMrBianca JAMA, is a 62 year old male here for a trach change. Last seen 02/12. He continues to be followed at the [place] [facility]. Continues with Shiley XLT, caps during day. Wound has continued to heal very slowly but is smaller. He comes in today with a new XLT trach for his trach change since we didn't have one in clinic last month. No other concerns. Overall doing ok. 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 Patient completed adjuvant chemoradiation on 02/06/22. History: Dx1: VeU2yG7 left neck (unknown primary) 2018 Dx2: Z9S6xY9 SCCa of the oral cavity 202004/28/18: +odynophagia, [...] entries m (more content not included)... Normal [facility] Tobacco Screening.on 023 Adult depression screening assessment No [facility] [place] Work Phone: Fall risk assessment a) No falls within the last year [facility] [place] Work Phone: Tobacco use status [facility] b) No M G-Otolaryngol [place] Work Phone: Anaerobic cultureOrdered By: Joya Galvez on 02-17-2023 Bacteria identified Anaer cx Nom (Unsp spec) No anaerobic bacteria isolated. [facility] Bacteria identified Cx Nom ( Wound)Ordered By: Joya Galvez on 02-15-2023 Wound Culture Staphylococcus aureus [facility] Gram stain for investigation of transfusion reactionOrdered By: Joya Galvez on 05-25-2023 Microscopic observation Gram stain Nom (Unsp spec) [facility] Anaerobic cultureOrdered By: Joya Galvez on 02-13-2023 Bacteria identified Anaer cx Nom (Unsp spec) No anaerobic bacteria isolated. [facility] Bacteria identified Cx Nom ( Wound)Ordered By: Joya Galvez on 02-13-2023 Wound Culture Staphylococcus aureus [facility] Gram stain for investigation of transfusion reactionOrdered By: Joya Galvez on 02-13-2023 Microscopic observation Gram stain Nom (Unsp spec) [facility] Basophil percentageOrdered B y: Dr. 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 MY JAMA, is here for cancer follow up. He has [id number] oral cavity SCCa s/p triple, trach, PEG, [...] He continues to be followed at the [place] wound clinic. Continues with Amber SCOTT, caps during day. Wound has continued to heal very slowly but is smaller. 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 Patient completed adjuvant chemoradiation on 02/06/22. History: Dx1: [id number] left neck (unknown primary) 2018 Dx2: [id number] SCCa of the oral cavity 202004/28/18: +odynophagia, [...] Estimated GFR (eGFR) > 60.0000 mL/min >60 [facility] Tobacco Screening.on 023 Fall risk assessment a) No falls within the last year [facility] [address] Work Phone: Tobacco use status [facility] b) No M G-Otolaryngol [place] [address] Work Phone: LIPID PANEL ([id number])Ordered B y: Public Services Assistant on 01-17-2023 Cholesterol [Mass/Vol] 130 mg/dL Normal 100-199 [facility] Work Phone: Cholesterol in HDL [Mass/Vol] 43 mg/dL Normal [facility]; [facility] Work Phone: Triglyceride [Mass/Vol] 59 mg/dL Normal 0-149 [facility]; [facility] Work Phone: LIPID PANEL ([id number]) 13 mg/dL Normal 5-40 [facility]; [facility] Work Phone: LIPID PANEL ([phone]) 74 mg/dL Normal 0-99 [facility]; [facility] Work Phone: LIPID PANEL ([phone]) 1.7 {ratio} Normal 0.0-3.6 [facility]; [facility] Work Phone: THIAMINE (B-1) ([id number])Ordere d By: Public Services Assistant on 01-17-2023 Thiamine (Bld) [Moles/Vol] 148.3 nmol/L Normal 66.5-200.0 [facility]; [facility] Work Phone: TSH (THYROID STIMULATING HOR NIK) ([phone])Ordered By: Public Services Assistant on 01-17-2023 TSH Qn 0.172 {uIU/mL} Abnormal 0.450-4.50 0 [facility]; [facility] Work Phone: VITAMIN B12 AND FOLATES ([phone])Ordered By: Public Services Assistant on 01-17-2023 Cobalamin (Vitamin B12) [Mass/Vol] 640 pg/mL Normal 232-1245 [facility]; [facility] Work Phone: Folate [Mass/Vol] ng/mL Normal Compreh ens[facility]; [facility] Work Phone: Bacteria identified Anaer cx Nom (Unsp spec)Ordered By: Joya Galvez on 01-13-2023 Anaerobic Culture Anaerobic cocci [facility] Bacteria identified Cx Nom ( Wound)Ordered By: Joya Galvez on 01-12-2023 Wound Culture Pseudomonas aeruginosa [facility] Wound Culture Meth. resistant Stap h. aureus [facility] Gram stain for investigation of transfusion reactionOrdered By: Joya Galvez on 01-10-2023 Microscopic observation Gram stain Nom (Unsp spec) [facility] Bacteria identified Anaer cx Nom (Unsp spec)Ordered By: Joya Galvez on 01-09-2023 Anaerobic Culture Anaerobic cocci [facility] Bacteria identified Cx Nom ( Wound)Ordered By: Joya Galvez on 01-09-2023 Wound Culture Pseudomonas aeruginosa [facility] Wound Culture Meth. resistant Stap h. aureus [facility] Gram stain for investigation of transfusion reactionOrdered By: Joya Galvez on 01-09-2023 Microscopic observation Gram stain Nom (Unsp spec) [facility] Absolute lymphocyte countOrd ered By: Dr. Simpson on 11-21-2022 Lymphocytes Auto (Unsp spec) [#/Vol] 1.62 10*3/uL 0.83-4.51 [facility] Basophil percentageOrdered B y: Dr. Simpson on 11-21-2022 Basophils/100 WBC (Bld) 0.4 % 0-1 [facility] Bilirubin [Mass/Vol] 0.20 mg/dL 0.20-1.00 [facility] Comment on above: For patients on eltr ombopag therapy, use of Dimension [place] TBIL is not recommended. Chloride [Moles/Vol] 103 mmol/L 98-107 [facility] Eosinophils/100 WBC (Bld) 0.6 % 0-5 [facility] Glucose [Mass/Vol] 105 mg/dL 74-106 [facility] Comment on above: Fasting Glucose resu lt from 100 to 125 mg/dL suggests IMPAIRED HOMEOSTASIS per A.D.A. criteria. Neutrophils (Bld) [#/Vol] 3.2 10*3/uL 2.0-7.7 [facility] Neutrophils/100 WBC (Bld) 58.7 % 47-70 [facility] Potassium [Moles/Vol] 4.3 mmol/L 3.5-5.1 [facility] Protein [Mass/Vol] 7.8 g/dL 6.4-8.2 [facility] Sodium [Moles/Vol] 139 mmol/L 136-145 [facility] WBC (Bld) [#/Vol] 5.4 10*3/uL 4.4-11.0 [facility] Blood erythrocytes count (nu mber/volume)Ordered By: Dr. Simpson on 11-21-2022 RBC (Bld) [#/Vol] 4.37 10*6/uL 4.6-6.2 [facility] Blood hemoglobin measurement (mass/volume)Ordered By: Dr. Simpson on 11-21-2022 Hemoglobin (Bld) [Mass/Vol] 12.8 g/dL 13.0-16.5 [facility] Blood lymphocytes/100 leukoc ytesOrdered By: Dr. Simpson on 11-21-2022 Lymphocytes/100 WBC (Bld) 29.8 % 19-41 [facility] Blood monocytes/100 leukocyt esOrdered By: Dr. Simpson on 11-21-2022 Monocytes/100 WBC (Bld) 10.1 % 0-10 [facility] Blood platelet mean volumeOr dered By: Dr. Simpson on 11-21-2022 Platelet mean volume (Bld) [Entitic vol] 10.7 fL 6.2-12.0 [facility] Determination of erythrocyte mean corpuscular volume (MCV)Ordered By: Dr. Simpson on 11-21-2022 MCV (RBC) [Entitic vol] 92.2 fL 80-94 [facility] Hematocrit Auto (Bld) [Volum e fraction]Ordered By: Dr. Simpson on 11-21-2022 Hematocrit (Bld) [Volume fraction] 40.3 % 40-54 [facility] Laboratory - Chemistry and C hemistry - challengeOrdered By: Dr. Simpson on 11-21-2022 ALP [Catalytic activity/Vol] 108 U/L 45-117 [facility] ALT [Catalytic activity/Vol] 26 U/L 16-61 [facility] CO2 [Moles/Vol] 31.0 mmol/L 21.0-32.0 [facility] Globulin (S) [Mass/Vol] 4.4 g/dL 2.2-4.2 [facility] Urea nitrogen/Creatinine [Mass ratio] 39.5 mg/mg 10-20 [facility] Laboratory - Hematology and Cell countsOrdered By: Dr. Simpson on 11-21-2022 Erythrocyte distribution width (RBC) [Entitic vol] 47.3 fL 35.1-43.9 [facility] Erythrocyte distribution width (RBC) [Ratio] 13.9 % 11.6-14.6 [facility] Immature granulocytes/100 WBC (Bld) 0.400 % 0.0-0.9 [facility] Comment on above: IG% - Immature Granu locytes (promyelocytes, myelocytes and metamyelocytes) > 1% indicates that a LEFT SHIFT is Present. MCH (RBC) [Entitic mass] 29.3 pg 27.0-32.0 [facility] Nucleated RBC/100 WBC (Bld) [Ratio] 0 % 0-5 [facility] MCHC Auto (RBC) [Mass/Vol]Or dered By: Dr. Simpson on 11-21-2022 MCHC (RBC) [Mass/Vol] 31.8 g/dL 32-36 [facility] No Panel InformationOrdered By: Dr. Simpson on 11-21-2022 Estimated Creatinine Clearance Calc 139.13 ml/min [facility] Estimated GFR (MDRD) Amer 242 mL/min >60 [facility] Comment on above: GFR Calc Estimated GFR (MDRD) Non-Af Amer 200 mL/min >60 [facility] Comment on above: Non- GFR Calc Platelets bldOrdered By: Dr. Simpson on 11-21-2022 Platelets (Bld) [#/Vol] 270 10*3/uL 150-450 [facility] Serum or plasma albumin yesi urement (mass/volume)Ordered By: Dr. Simpson on 11-21-2022 Albumin [Mass/Vol] 3.4 g/dL 3.2-5.0 [facility] Serum or plasma albumin/glob ulin mass ratioOrdered By: Dr. Simpson on 11-21-2022 Albumin/Globulin [Mass ratio] 0.8 {ratio} 0.9-2.4 [facility] Serum or plasma calcium yesi urement (mass/volume)Ordered By: Dr. Simpson on 11-21-2022 Calcium [Mass/Vol] 9.2 mg/dL 8.5-10.1 [facility] Serum or plasma creatinine m easurement (mass/volume)Ordered By: Dr. Simpson on 11-21-2022 Creatinine [Mass/Vol] 0.46 mg/dL 0.70-1.30 [facility] Comment on above: The validity of the calculated GFR & GFRAA in patients over 70 years has not been determined. Clinical correlation is essential. Serum or plasma urea nitroge n measurement (mass/volume)Ordered By: Dr. Simpson on 11-21-2022 Urea nitrogen [Mass/Vol] 18 mg/dL 7-18 [facility] Thin prep Papanicolaou smear with manual screeningOrdered By: Dr. Simpson on 11-21-2022 Thin prep Papanicolaou smear with manual screening 17 U/L 15-37 [facility] Thin prep Papanicolaou smear with manual screening 5 5-15 [facility] Anaerobic cultureOrdered By: Joya Galvez on 11-17-2022 Bacteria identified Anaer cx Nom (Unsp spec) No anaerobic bacteria isolated. [facility] Bacteria identified Cx Nom ( Wound)Ordered By: Joya Galvez on 11-16-2022 Wound Culture Escherichia coli [facility] Wound Culture Pseudomonas aeroginosa [facility] Gram stain for investigation of transfusion reactionOrdered By: Joya Galvez on 11-14-2022 Microscopic observation Gram stain Nom (Unsp spec) [facility] Bacteria identified Anaer cx Nom (Unsp spec)Ordered By: Joya Galvez on 10-06-2022 Anaerobic Culture Anaerobic cocci [facility] Bacteria identified Cx Nom ( Wound)Ordered By: Joya Galvez on 10-05-2022 Wound Culture Meth. resistant Stap h. aureus [facility] Gram stain for investigation of transfusion reactionOrdered By: Joya Galvez on 10-03-2022 Microscopic observation Gram stain Nom (Unsp spec) [facility] TSHon 08-06-2022 TSH Qn 0.30 m[IU]/L Low 0.44 - 3.98 [facility] Comment on above: Result Comment: TSH testing is performed using different testing methodology at [facility] than at other system [facility]. Direct result comparisons should only be made within the same method. Performed By: #### T SH2 #### [facility] [address] [place] [address] TSH - Thyroid Stimulating Ho Luis lemoson 08-06-2022 TSH Qn 0.30 m[IU]/L below low threshold See Below MG-Otolaryngol ogy-Admin [place] [address] Work Phone: Comment on above: Reference Range: 0.4 4 - 3.98 TSH testing is performed using different testing methodology at [facility] than at other [facility] hospitals. Direct result comparisons should only be made within the same method. Basophil percentageOrdered B y: Dr. Simpson on 07-24-2022 Basophil percentage < 0.9 mg/dL 0.70-1.30 [facility] No Panel InformationOrdered By: Dr. Simpson on 07-24-2022 Bedside Estimated GFR (eGFR) > 60.0000 mL/min >60 [facility] Bacteria identified Cx Nom ( Wound)Ordered By: Joya Galvez on 07-14-2022 Wound Culture Pseudomonas aeroginosa [facility] Wound Culture Streptococcus agalactiae (B) [facility] Bacteria identified Anaer cx Nom (Unsp spec)Ordered By: Joya Galvez on 07-13-2022 Anaerobic Culture Anaerobic cocci [facility] Gram stain for investigation of transfusion reactionOrdered By: Joya Galvez on 07-11-2022 Microscopic observation Gram stain Nom (Unsp spec) [facility] Established Visit (Otolaryng ology)on 06-18-2022 Established Visit (Otolaryngology) Diagnoses/Problems Xerostomia (527.7) (K11.7) Oropharyngeal dysphagia (787.22) (R13.12) Open wound of neck, subsequent encounter (V58.89,874.8) (S11.90XD) 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 MY JAMA, is here for cancer follow up. He has [id number] oral cavity SCCa s/p triple, trach, PEG, [...] has going to weekly wound clinic at [place]. They have been doing weekly debridements and then placed integra. There is a smell. He returns in 2 days. He is 4 months out from radiation now. 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 Patient completed adjuvant chemoradiation on 02/06/22. History: Dx1: [id number] left neck (unknown primary) 2018 Dx2: [id number] SCCa of the oral cavity 202004/28/18: +odynophagia, [...] no lymphadenopathy 09/12: Oral cavity biopsy at [facility] +SCCa 10/14: PET FDG avid oral cavity [...] 4.66 m[IU]/L High 0.44 - 3.98 [facility] Comment on above: Result Comment: TSH testing is performed using different testing methodology at [facility] than at other [facility]. Direct result comparisons should only be made within the same method. Performed By: #### T SH2 #### [facility] [address] [place] [address] TSH - Thyroid Stimulating Ho rmone, Serumon 06-18-2022 TSH Qn 4.66 m[IU]/L above high threshold See Below MG-Otolaryngol ogy-Admin [place] [address] Work Phone: Comment on above: Reference Range: 0.4 4 - 3.98 TSH testing is performed using different testing methodology at [facility] than at other [facility]. Direct result comparisons should only be made within the same method. Absolute lymphocyte counton 05-23-2022 Lymphocytes Auto (Unsp spec) [#/Vol] 1.03 10*3/uL 0.83-4.51 [facility] Work Phone: Basophil percentageOrdered B y: Dr. Simpson on 05-23-2022 Basophil percentage 3.9 mg/dL 2.5-4.9 [facility] Basophil percentageon 2021 Basophils/100 WBC (Bld) 0.4 % 0-1 [facility] Work Phone: Bilirubin [Mass/Vol] 0.20 mg/dL 0.20-1.00 [facility] Work Phone: Comment on above: For patients on eltr ombopag therapy, use of Dimension [place] TBIL is not recommended. Chloride [Moles/Vol] 99 mmol/L 98-107 [facility] Work Phone: Eosinophils/100 WBC (Bld) 0.4 % 0-5 [facility] Work Phone: Glucose [Mass/Vol] 105 mg/dL 74-106 [facility] Work Phone: Comment on above: Fasting Glucose resu lt from 100 to 125 mg/dL suggests IMPAIRED HOMEOSTASIS per A.D.A. criteria. Neutrophils (Bld) [#/Vol] 6.1 10*3/uL 2.0-7.7 [facility] Work Phone: Neutrophils/100 WBC (Bld) 76.7 % 47-70 [facility] Work Phone: Potassium [Moles/Vol] 4.1 mmol/L 3.5-5.1 [facility] Work Phone: Protein [Mass/Vol] 8.4 g/dL 6.4-8.2 [facility] Work Phone: Sodium [Moles/Vol] 135 mmol/L 136-145 [facility] Work Phone: WBC (Bld) [#/Vol] 7.9 10*3/uL 4.4-11.0 [facility] Work Phone: Blood erythrocytes count (nu mber/volume)on 05-23-2022 RBC (Bld) [#/Vol] 4.08 10*6/uL 4.6-6.2 [facility] Work Phone: Blood hemoglobin measurement (mass/volume)on 05-23-2022 Hemoglobin (Bld) [Mass/Vol] 11.0 g/dL 13.0-16.5 [facility] Work Phone: Blood lymphocytes/100 leukoc yteson 05-23-2022 Lymphocytes/100 WBC (Bld) 13.1 % 19-41 [facility] Work Phone: Blood monocytes/100 leukocyt eson 05-23-2022 Monocytes/100 WBC (Bld) 9.0 % 0-10 [facility] Work Phone: Blood platelet mean volumeon 05-23-2022 Platelet mean volume (Bld) [Entitic vol] 9.2 fL 6.2-12.0 [facility] Work Phone: Determination of erythrocyte mean corpuscular volume (MCV)on 05-23-2022 MCV (RBC) [Entitic vol] 86.8 fL 80-94 [facility] Work Phone: Hematocrit Auto (Bld) [Volum e fraction]on 05-23-2022 Hematocrit (Bld) [Volume fraction] 35.4 % 40-54 [facility] Work Phone: Laboratory - Chemistry and C hemistry - challengeon 05-23-2022 ALP [Catalytic activity/Vol] 109 U/L 45-117 [facility] Work Phone: ALT [Catalytic activity/Vol] 29 U/L 16-61 [facility] Work Phone: CO2 [Moles/Vol] 30.0 mmol/L 21.0-32.0 [facility] Work Phone: Globulin (S) [Mass/Vol] 4.9 g/dL 2.2-4.2 [facility] Work Phone: Urea nitrogen/Creatinine [Mass ratio] 31.7 mg/mg 10-20 [facility] Work Phone: Laboratory - Chemistry and C hemistry - challengeOrdered By: Dr. Simpson on 05-23-2022 Magnesium [Mass/Vol] 1.9 mg/dL 1.6-2.6 [facility] Laboratory - Hematology and Cell countson 05-23-2022 Erythrocyte distribution width (RBC) [Entitic vol] 51.3 fL 35.1-43.9 [facility] Work Phone: Erythrocyte distribution width (RBC) [Ratio] 16.1 % 11.6-14.6 [facility] Work Phone: Immature granulocytes/100 WBC (Bld) 0.400 % 0.0-0.9 [facility] Work Phone: Comment on above: IG% - Immature Granu locytes (promyelocytes, myelocytes and metamyelocytes) > 1% indicates that a LEFT SHIFT is Present. MCH (RBC) [Entitic mass] 27.0 pg 27.0-32.0 [facility] Work Phone: Nucleated RBC/100 WBC (Bld) [Ratio] 0 % 0-5 [facility] Work Phone: MCHC Auto (RBC) [Mass/Vol]on 05-23-2022 MCHC (RBC) [Mass/Vol] 31.1 g/dL 32-36 [facility] Work Phone: No Panel Informationon 05-23 Estimated Creatinine Clearance Calc 137.87 ml/min [facility] Work Phone: Estimated GFR (MDRD) Amer 233 mL/min >60 [facility] Work Phone: Comment on above: GFR Calc Estimated GFR (MDRD) Non-Af Amer 192 mL/min >60 [facility] Work Phone: Comment on above: Non- GFR Calc Platelets bldon 05-23-2022 Platelets (Bld) [#/Vol] 420 10*3/uL 150-450 [facility] Work Phone: Serum or plasma albumin yesi urement (mass/volume)on 05-23-2022 Albumin [Mass/Vol] 3.5 g/dL 3.2-5.0 [facility] Work Phone: Serum or plasma albumin/glob ulin mass ratioon 05-23-2022 Albumin/Globulin [Mass ratio] 0.7 {ratio} 0.9-2.4 [facility] Work Phone: Serum or plasma calcium yesi urement (mass/volume)on 05-23-2022 Calcium [Mass/Vol] 9.1 mg/dL 8.5-10.1 [facility] Work Phone: Serum or plasma creatinine m easurement (mass/volume)on 05-23-2022 Creatinine [Mass/Vol] 0.47 mg/dL 0.70-1.30 [facility] Work Phone: Comment on above: The validity of the calculated GFR & GFRAA in patients over 70 years has not been determined. Clinical correlation is essential. Serum or plasma urea nitroge n measurement (mass/volume)on 05-23-2022 Urea nitrogen [Mass/Vol] 15 mg/dL 7-18 [facility] Work Phone: Thin prep Papanicolaou smear with manual screeningon 05-23-2022 Thin prep Papanicolaou smear with manual screening 18 U/L 15-37 [facility] Work Phone: Thin prep Papanicolaou smear with manual screening 6 5-15 [facility] Work Phone: Established Visit (Otolaryng ology)on 05-14-2022 Established Visit (Otolaryngology) Diagnoses/Problems Former smoker (V15.82) (Z87.891) Adverse effect of radiation therapy, subsequent encounter (V58.89) (T66.XXXD) 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 Brooks evaluated you today. Your care plan is outlined below: -- You should have a PET scan now. have the med onc order it. -- Follow up with Dr. Brooks in 1 month. This appointment was scheduled at the end of your visit today. If you need to reschedule, please call the office at [phone]. Please keep in mind that last minute cancellations often result in delayed follow-up appointments. General appointment line please call [phone] For general questions or scheduling issues please call [phone] option #2 For medical questions or surgery scheduling please call [phone]. Please be sure to leave a voice [...] here for cancer follow up. He has [id number] oral cavity SCCa s/p triple, trach, PEG, [...] been referred to the wound clinic at [place]. He goes once a week and they deride the wound. He has his trach capped today. He is currently on Levaquin for 14 days. He has been seen by [employer] and is advancing his diet. He is [...] last script. 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 Patient completed adjuvant chemoradiation on 02/06/22. History: Dx1: [id number] left neck (unknown primary) 2018 Dx2: [id number] SCCa of the oral cavity 202004/28/18: +odynophagia, [...] no lymphadenopathy 09/12: Oral cavity biopsy at [facility] +SCCa 10/14: PET FDG avid oral cavity mass w/bone involvement SUV12, no lymphadenopathy or distant meta (more content not included)... Normal [facility] Tobacco Screening.on 022 Fall risk assessment a) No falls within the last year [facility] Work Phone: Tobacco use status [facility] b) No M P-Otol[facility]ol [facility] Work Phone: Tobacco Screening.on Fall risk assessment a) No falls within the last year [facility] Work Phone: Tobacco use status [facility] b) No M [facility]Otol[facility]ol [facility] Work Phone: Cult, Misc + smearon Bacteria identified Cx Nom (Unsp spec) Abnormal [facility]-Otolaryngol [facility] Work Phone: Tobacco Screening.on Fall risk assessment a) No falls within the last year [facility]ol [facility] Work Phone: Tobacco use status [facility] b) No M G-Otolaryngol [facility] Work Phone: Metabolic Panel, Basic ([phone])Ordered By: Public Services Assistant on 02-22-2022 Calcium [Mass/Vol] 8.7 mg/dL Normal 8.7-10.2 [facility]; [facility] Work Phone: Comment on above: PATIENT NOT FASTINGP ERFORMED BY: CB [facility] [id number] Dick [employer] [facility] [id number] Chloride [Moles/Vol] 91 mmol/L Abnormal 96-106 Comp rehensive [facility]; [facility] Work Phone: Comment on above: PATIENT NOT FASTINGP ERFORMED BY: CB [facility] [id number] Dick [employer] [facility] [id number] CO2 [Moles/Vol] 25 mmol/L Normal 20-29 Comprehen [facility]; [facility] Work Phone: Comment on above: PATIENT NOT FASTINGP ERFORMED BY: [employer] [facility] [id number] Dick [employer] [facility] [id number] Creatinine [Mass/Vol] 0.35 mg/dL Abnormal 0.76-1.27 [facility] prehensive Internal Medicine; [facility] Work Phone: Comment on above: PATIENT NOT FASTINGP ERFORMED BY: SAGRARIO [id number] [facility] [id number] GFR/1.73 sq M.predicted among non-blacks MDRD (S/P/Bld) [Vol rate/Area] 131 mL/min/{1.73_m2} Normal Comprehensi ve Internal Medicine; [facility] Work Phone: Comment on above: PATIENT NOT FASTINGP ERFORMED BY: SAGRARIO Labco [id number] [facility] [id number] Glucose [Mass/Vol] 77 mg/dL Normal 65-99 [facility] Internal Medicine; [facility] Work Phone: Comment on above: PATIENT NOT FASTINGP ERFORMED BY: SAGRARIO Lablouisa [id number] [facility] [id number] Potassium [Moles/Vol] 4.7 mmol/L Normal 3.5-5.2 [facility] prehensive Internal Medicine; [facility] Work Phone: Comment on above: PATIENT NOT FASTINGP ERFORMED BY: SAGRARIO Andi Cuevas6370 [facility] [id number] Sodium [Moles/Vol] 130 mmol/L Abnormal 134-144 [facility] Internal Medicine; [facility] Work Phone: Comment on above: PATIENT NOT FASTINGP ERFORMED BY: SAGRARIO Lablouisa [id number] [facility] [id number] Urea nitrogen [Mass/Vol] 13 mg/dL Normal 6-24 [facility]; [facility] Work Phone: Comment on above: PATIENT NOT FASTINGP ERFORMED BY: SAGRARIO Lablouisa [id number] [facility] [id number] Urea nitrogen/Creatinine [Mass ratio] 37 mg/mg Abnormal 9-20 [facility]; [facility] Work Phone: Comment on above: PATIENT NOT FASTINGP ERFORMED BY: SAGRARIO [facility] [id number] [address] RoadDublin [place] [id number] Metabolic Panel, Basic (51740) 131 mL/min/1.73 Normal [facility]; [facility] Work Phone: Metabolic Panel, Basic (8000 [id number])Ordered By: Public Services Assistant on 02-15-2022 Calcium [Mass/Vol] 8.9 mg/dL Normal 8.7-10.2 [facility]; [facility] Work Phone: Comment on above: PATIENT NOT FASTINGP ERFORMED BY: CB [facility] [id number] Dick RoadDublin [place] [id number] Chloride [Moles/Vol] 92 mmol/L Abnormal 96-106 [facility]; [facility] Work Phone: Comment on above: PATIENT NOT FASTINGP ERFORMED BY: CB [facility] [id number] RoadDublin [place] [id number] CO2 [Moles/Vol] 23 mmol/L Normal 20-29 Comprehen [facility]; [facility] Work Phone: Comment on above: PATIENT NOT FASTINGP ERFORMED BY: CB [facility] [id number] [address] RoadDublin [place] [id number] Creatinine [Mass/Vol] 0.43 mg/dL Abnormal 0.76-1.27 [facility]; [facility] Work Phone: Comment on above: PATIENT NOT FASTINGP ERFORMED BY: CB [facility] [id number] [address] RoadDublin [place] [id number] GFR/1.73 sq M.predicted among non-blacks MDRD (S/P/Bld) [Vol rate/Area] 123 mL/min/{1.73_m2} Normal [facility]; [facility] Work Phone: Comment on above: PATIENT NOT FASTINGP ERFORMED BY: CB [facility] [id number] [address] RoadDublin [place] [id number] Glucose [Mass/Vol] 87 mg/dL Normal 65-99 [facility]; [facility] Work Phone: Comment on above: PATIENT NOT FASTINGP ERFORMED BY: SAGRARIO Gomezlin6370 [facility] [id number] Potassium [Moles/Vol] 5.2 mmol/L Normal 3.5-5.2 [facility] prehensive Internal Medicine; [facility] Work Phone: Comment on above: PATIENT NOT FASTINGP ERFORMED BY: SAGRARIO Labasael [id number] [facility] [id number] Sodium [Moles/Vol] 131 mmol/L Abnormal 134-144 [facility] Internal Medicine; [facility] Work Phone: Comment on above: PATIENT NOT FASTINGP ERFORMED BY: SAGRARIO Gomezlin6370 [facility] [id number] Urea nitrogen [Mass/Vol] 15 mg/dL Normal 6-24 [facility]; [facility] Work Phone: Comment on above: PATIENT NOT FASTINGP ERFORMED BY: SAGRARIO Gomezlin6370 [facility] [id number] Urea nitrogen/Creatinine [Mass ratio] 35 mg/mg Abnormal 9-20 [facility]; [facility] Work Phone: Comment on above: PATIENT NOT FASTINGP ERFORMED BY: SAGRARIO Gomezlin6370 [facility] [id number] Metabolic Panel, Basic ([id number]) 123 mL/min/1.73 Normal [facility]; [facility] Work Phone: Absolute lymphocyte counton 02-14-2022 Lymphocytes Auto (Unsp spec) [#/Vol] 0.86 10*3/uL 0.83-4.51 [facility] Basophil percentageon 2021 Basophil percentage 3.4 mg/dL 2.5-4.9 [facility] Basophils/100 WBC (Bld) 0.3 % 0-1 [facility] Bilirubin [Mass/Vol] 0.20 mg/dL 0.20-1.00 [facility] Comment on above: For patients on eltr ombopag therapy, use of Dimension [place] TBIL is not recommended. Chloride [Moles/Vol] 93 mmol/L 98-107 [facility] Eosinophils/100 WBC (Bld) 0.7 % 0-5 [facility] Glucose [Mass/Vol] 82 mg/dL 74-106 [facility] Neutrophils (Bld) [#/Vol] 4.3 10*3/uL 2.0-7.7 [facility] Neutrophils/100 WBC (Bld) 71.4 % 47-70 [facility] Potassium [Moles/Vol] 4.2 mmol/L 3.5-5.1 [facility] Protein [Mass/Vol] 8.1 g/dL 6.4-8.2 [facility] Sodium [Moles/Vol] 129 mmol/L 136-145 [facility] WBC (Bld) [#/Vol] 6.1 10*3/uL 4.4-11.0 [facility] Blood erythrocytes count (nu mber/volume)on 02-14-2022 RBC (Bld) [#/Vol] 3.44 10*6/uL 4.6-6.2 [facility] Blood hemoglobin measurement (mass/volume)on 02-14-2022 Hemoglobin (Bld) [Mass/Vol] 10.6 g/dL 13.0-16.5 [facility] Blood lymphocytes/100 leukoc yteson 02-14-2022 Lymphocytes/100 WBC (Bld) 14.2 % 19-41 [facility] Blood monocytes/100 leukocyt eson 02-14-2022 Monocytes/100 WBC (Bld) 12.7 % 0-10 [facility] Blood platelet mean volumeon 02-14-2022 Platelet mean volume (Bld) [Entitic vol] 8.1 fL 6.2-12.0 [facility] Determination of erythrocyte mean corpuscular volume (MCV)on 02-14-2022 MCV (RBC) [Entitic vol] 91.6 fL 80-94 [facility] Hematocrit Auto (Bld) [Volum e fraction]on 02-14-2022 Hematocrit (Bld) [Volume fraction] 31.5 % 40-54 [facility] Laboratory - Chemistry and C hemistry - challengeon 02-14-2022 ALP [Catalytic activity/Vol] 97 U/L 45-117 [facility] ALT [Catalytic activity/Vol] 26 U/L 16-61 [facility] CO2 [Moles/Vol] 31.0 mmol/L 21.0-32.0 [facility] Globulin (S) [Mass/Vol] 4.7 g/dL 2.2-4.2 [facility] Magnesium [Mass/Vol] 1.9 mg/dL 1.6-2.6 [facility] Urea nitrogen/Creatinine [Mass ratio] 52.9 mg/mg 10-20 [facility] Laboratory - Hematology and Cell countson 02-14-2022 Erythrocyte distribution width (RBC) [Entitic vol] 49.9 fL 35.1-43.9 [facility] Erythrocyte distribution width (RBC) [Ratio] 14.9 % 11.6-14.6 [facility] Immature granulocytes/100 WBC (Bld) 0.700 % 0.0-0.9 [facility] Comment on above: IG% - Immature Granu locytes (promyelocytes, myelocytes and metamyelocytes) > 1% indicates that a LEFT SHIFT is Present. MCH (RBC) [Entitic mass] 30.8 pg 27.0-32.0 [facility] Nucleated RBC/100 WBC (Bld) [Ratio] 0 % 0-5 [facility] MCHC Auto (RBC) [Mass/Vol]on 02-14-2022 MCHC (RBC) [Mass/Vol] 33.7 g/dL 32-36 [facility] No Panel Informationon 02-14 Estimated GFR (MDRD) Amer 302 mL/min >60 [facility] Comment on above: GFR Calc Estimated GFR (MDRD) Non-Af Amer 249 mL/min >60 [facility] Comment on above: Non- GFR Calc Platelets bldon 02-14-2022 Platelets (Bld) [#/Vol] 464 10*3/uL 150-450 [facility] Serum or plasma albumin yesi urement (mass/volume)on 02-14-2022 Albumin [Mass/Vol] 3.4 g/dL 3.2-5.0 [facility] Serum or plasma albumin/glob ulin mass ratioon 02-14-2022 Albumin/Globulin [Mass ratio] 0.7 {ratio} 0.9-2.4 [facility] Serum or plasma calcium yesi urement (mass/volume)on 02-14-2022 Calcium [Mass/Vol] 9.0 mg/dL 8.5-10.1 [facility] Serum or plasma creatinine m easurement (mass/volume)on 02-14-2022 Creatinine [Mass/Vol] 0.38 mg/dL 0.70-1.30 [facility] Comment on above: The validity of the calculated GFR & GFRAA in patients over 70 years has not been determined. Clinical correlation is essential. Serum or plasma urea nitroge n measurement (mass/volume)on 02-14-2022 Urea nitrogen [Mass/Vol] 20 mg/dL 7-18 [facility] Thin prep Papanicolaou smear with manual screeningon 02-14-2022 Thin prep Papanicolaou smear with manual screening 12 U/L 15-37 [facility] Thin prep Papanicolaou smear with manual screening 5 5-15 [facility] Tobacco Screening.on 022 Fall risk assessment a) No falls within the last year [facility] Work Phone: Tobacco use status CPHS b) No M [facility] Work Phone: Absolute lymphocyte counton 01-31-2022 Lymphocytes Auto (Unsp spec) [#/Vol] 0.66 10*3/uL 0.83-4.51 [facility] Work Phone: Basophil percentageon 2021 Basophil percentage 3.9 mg/dL 2.5-4.9 [facility] Work Phone: Basophils/100 WBC (Bld) 0.2 % 0-1 [facility] Work Phone: Chloride [Moles/Vol] 96 mmol/L 98-107 [facility] Work Phone: Eosinophils/100 WBC (Bld) 0.7 % 0-5 [facility] Work Phone: Glucose [Mass/Vol] 78 mg/dL 74-106 [facility] Work Phone: Neutrophils (Bld) [#/Vol] 4.5 10*3/uL 2.0-7.7 [facility] Work Phone: Neutrophils/100 WBC (Bld) 75.6 % 47-70 [facility] Work Phone: Potassium [Moles/Vol] 3.8 mmol/L 3.5-5.1 [facility] [place] Work Phone: Sodium [Moles/Vol] 132 mmol/L 136-145 [facility] Work Phone: WBC (Bld) [#/Vol] 5.9 10*3/uL 4.4-11.0 [facility] Work Phone: Blood erythrocytes count (nu mber/volume)on 01-31-2022 RBC (Bld) [#/Vol] 3.13 10*6/uL 4.6-6.2 [facility] Work [facility]: Blood hemoglobin measurement (mass/volume)on 01-31-2022 Hemoglobin (Bld) [Mass/Vol] 9.7 g/dL 13.0-16.5 [facility] Work Phone: Blood lymphocytes/100 leukoc yteson 01-31-2022 Lymphocytes/100 WBC (Bld) 11.2 % 19-41 [facility] Work Phone: Blood monocytes/100 leukocyt eson 01-31-2022 Monocytes/100 WBC (Bld) 12.1 % 0-10 [facility] Work Phone: Blood platelet mean volumeon 01-31-2022 Platelet mean volume (Bld) [Entitic vol] 8.1 fL 6.2-12.0 [facility] Work Phone: Determination of erythrocyte mean corpuscular volume (MCV)on 01-31-2022 MCV (RBC) [Entitic vol] 93.9 fL 80-94 [facility] Work Phone: Hematocrit Auto (Bld) [Volum e fraction]on 01-31-2022 Hematocrit (Bld) [Volume fraction] 29.4 % 40-54 [facility] Work Phone: Laboratory - Chemistry and C hemistry - challengeon 01-31-2022 CO2 [Moles/Vol] 31.0 mmol/L 21.0-32.0 [facility] Work Phone: Magnesium [Mass/Vol] 1.6 mg/dL 1.6-2.6 [facility] Work Phone: Urea nitrogen/Creatinine [Mass ratio] 43.5 mg/mg 10-20 [facility] Work Phone: Laboratory - Hematology and Cell countson 01-31-2022 Erythrocyte distribution width (RBC) [Entitic vol] 53.1 fL 35.1-43.9 [facility] Work Phone: Erythrocyte distribution width (RBC) [Ratio] 15.3 % 11.6-14.6 [facility] Work Phone: Immature granulocytes/100 WBC (Bld) 0.200 % 0.0-0.9 [facility] Work Phone: Comment on above: IG% - Immature Granu locytes (promyelocytes, myelocytes and metamyelocytes) > 1% indicates that a LEFT SHIFT is Present. MCH (RBC) [Entitic mass] 31.0 pg 27.0-32.0 [facility] Work Phone: Nucleated RBC/100 WBC (Bld) [Ratio] 0 % 0-5 [facility] Work Phone: MCHC Auto (RBC) [Mass/Vol]on 01-31-2022 MCHC (RBC) [Mass/Vol] 33.0 g/dL 32-36 [facility] Work Phone: No Panel Informationon 01-31 Estimated Creatinine Clearance Calc 194.55 ml/min [facility] Work Phone: Estimated GFR (MDRD) Amer 363 mL/min >60 [facility] Work Phone: Comment on above: GFR Calc Estimated GFR (MDRD) Non-Af Amer 300 mL/min >60 [facility] Work Phone: Comment on above: Non- GFR Calc Platelets bldon 01-31-2022 Platelets (Bld) [#/Vol] 303 10*3/uL 150-450 [facility] Work Phone: Serum or plasma calcium yesi urement (mass/volume)on 01-31-2022 Calcium [Mass/Vol] 9.0 mg/dL 8.5-10.1 [facility] Work Phone: Serum or plasma creatinine m easurement (mass/volume)on 01-31-2022 Creatinine [Mass/Vol] 0.32 mg/dL 0.70-1.30 [facility] Work Phone: Comment on above: The validity of the calculated GFR & GFRAA in patients over 70 years has not been determined. Clinical correlation is essential. Serum or plasma urea nitroge n measurement (mass/volume)on 01-31-2022 Urea nitrogen [Mass/Vol] 14 mg/dL 7-18 [facility] Work Phone: Thin prep Papanicolaou smear with manual screeningon 01-31-2022 Thin prep Papanicolaou smear with manual screening 5 5-15 [facility] Work Phone: Absolute lymphocyte counton 01-25-2022 Lymphocytes Auto (Unsp spec) [#/Vol] 0.60 10*3/uL 0.83-4.51 [facility] Work Phone: Basophil percentageon 2021 Basophils/100 WBC (Bld) 0.2 % 0-1 [facility] Work Phone: Chloride [Moles/Vol] 96 mmol/L 98-107 [facility] Work Phone: Eosinophils/100 WBC (Bld) 0.2 % 0-5 [facility] Work Phone: Glucose [Mass/Vol] 109 mg/dL 74-106 [facility] Work Phone: Comment on above: Fasting Glucose resu lt from 100 to 125 mg/dL suggests IMPAIRED HOMEOSTASIS per A.D.A. criteria. Neutrophils (Bld) [#/Vol] 4.4 10*3/uL 2.0-7.7 [facility] Work Phone: Neutrophils/100 WBC (Bld) 74.7 % 47-70 [facility] Work Phone: Potassium [Moles/Vol] 4.3 mmol/L 3.5-5.1 [facility] Work Phone: Sodium [Moles/Vol] 129 mmol/L 136-145 [facility] Work Phone: WBC (Bld) [#/Vol] 5.8 10*3/uL 4.4-11.0 [facility] Work Phone: Blood erythrocytes count (nu mber/volume)on 01-25-2022 RBC (Bld) [#/Vol] 3.25 10*6/uL 4.6-6.2 [facility] Work Phone: Blood hemoglobin measurement (mass/volume)on 01-25-2022 Hemoglobin (Bld) [Mass/Vol] 10.2 g/dL 13.0-16.5 [facility] Work Phone: Blood lymphocytes/100 leukoc yteson 01-25-2022 Lymphocytes/100 WBC (Bld) 10.3 % 19-41 [facility] Work Phone: Blood monocytes/100 leukocyt eson 01-25-2022 Monocytes/100 WBC (Bld) 13.9 % 0-10 [facility] Work Phone: Blood platelet mean volumeon 01-25-2022 Platelet mean volume (Bld) [Entitic vol] 7.9 fL 6.2-12.0 [facility] Work Phone: Determination of erythrocyte mean corpuscular volume (MCV)on 01-25-2022 MCV (RBC) [Entitic vol] 90.2 fL 80-94 [facility] Work Phone: Hematocrit Auto (Bld) [Volum e fraction]on 01-25-2022 Hematocrit (Bld) [Volume fraction] 29.3 % 40-54 [facility] Work Phone: Laboratory - Chemistry and C hemistry - challengeon 01-25-2022 CO2 [Moles/Vol] 28.0 mmol/L 21.0-32.0 [facility] Work Phone: Urea nitrogen/Creatinine [Mass ratio] 43.4 mg/mg 10-20 [facility] Work Phone: Laboratory - Hematology and Cell countson 01-25-2022 Erythrocyte distribution width (RBC) [Entitic vol] 51.0 fL 35.1-43.9 [facility] Work Phone: Erythrocyte distribution width (RBC) [Ratio] 15.5 % 11.6-14.6 [facility] Work Phone: Immature granulocytes/100 WBC (Bld) 0.700 % 0.0-0.9 [facility] Work Phone: Comment on above: IG% - Immature Granu locytes (promyelocytes, myelocytes and metamyelocytes) > 1% indicates that a LEFT SHIFT is Present. MCH (RBC) [Entitic mass] 31.4 pg 27.0-32.0 [facility] Work Phone: Nucleated RBC/100 WBC (Bld) [Ratio] 0 % 0-5 [facility] Work Phone: MCHC Auto (RBC) [Mass/Vol]on 01-25-2022 MCHC (RBC) [Mass/Vol] 34.8 g/dL 32-36 [facility] Work Phone: No Panel Informationon 01-25 Estimated Creatinine Clearance Calc 172.09 ml/min [facility] Work Phone: Estimated GFR (MDRD) Amer 310 mL/min >60 [facility] Work Phone: Comment on above: GFR Calc Estimated GFR (MDRD) Non-Af Amer 256 mL/min >60 [facility] Work Phone: Comment on above: Non- GFR Calc Platelets bldon 01-25-2022 Platelets (Bld) [#/Vol] 298 10*3/uL 150-450 [facility] Work Phone: Serum or plasma calcium yesi urement (mass/volume)on 01-25-2022 Calcium [Mass/Vol] 8.5 mg/dL 8.5-10.1 [facility] Work Phone: Serum or plasma creatinine m easurement (mass/volume)on 01-25-2022 Creatinine [Mass/Vol] 0.37 mg/dL 0.70-1.30 [facility] Work Phone: Comment on above: The validity of the calculated GFR & GFRAA in patients over 70 years has not been determined. Clinical correlation is essential. Serum or plasma urea nitroge n measurement (mass/volume)on 01-25-2022 Urea nitrogen [Mass/Vol] 16 mg/dL 7-18 [facility] Work Phone: Thin prep Papanicolaou smear with manual screeningon 01-25-2022 Thin prep Papanicolaou smear with manual screening 5 5-15 [facility] Work Phone: Absolute lymphocyte counton 01-23-2022 Lymphocytes Auto (Unsp spec) [#/Vol] 0.28 10*3/uL 0.83-4.51 [facility] Work Phone: Basophil percentageon 2021 Chloride [Moles/Vol] 91 mmol/L 98-107 [facility] Work Phone: Glucose [Mass/Vol] 100 mg/dL 74-106 [facility] Work Phone: Comment on above: Fasting Glucose resu lt from 100 to 125 mg/dL suggests IMPAIRED HOMEOSTASIS per A.D.A. criteria. Potassium [Moles/Vol] 4.0 mmol/L 3.5-5.1 [facility] Work Phone: Sodium [Moles/Vol] 123 mmol/L 136-145 [facility] Work Phone: Basophils/100 WBC (Bld) 0.0 % 0-1 [facility] Work Phone: Eosinophils/100 WBC (Bld) 0.0 % 0-5 [facility] Work Phone: Neutrophils (Bld) [#/Vol] 7.7 10*3/uL 2.0-7.7 [facility] Work Phone: Neutrophils/100 WBC (Bld) 94.5 % 47-70 [facility] Work Phone: WBC (Bld) [#/Vol] 8.2 10*3/uL 4.4-11.0 [facility] Work Phone: Blood erythrocytes count (nu mber/volume)on 01-23-2022 RBC (Bld) [#/Vol] 3.18 10*6/uL 4.6-6.2 [facility] Work Phone: Blood hemoglobin measurement (mass/volume)on 01-23-2022 Hemoglobin (Bld) [Mass/Vol] 9.8 g/dL 13.0-16.5 [facility] Work Phone: Blood lymphocytes/100 leukoc yteson 01-23-2022 Lymphocytes/100 WBC (Bld) 3.4 % 19-41 [facility] Work Phone: Blood manual differential co mment interpretation (narrative result)on 01-23-2022 Manual differential comment Allen (Bld) [Interp] SCANNED [facility] Work Phone: Comment on above: LYMPHOPENIA NOTED Blood monocytes/100 leukocyt eson 01-23-2022 Monocytes/100 WBC (Bld) 1.6 % 0-10 [facility] Work Phone: Blood platelet mean volumeon 01-23-2022 Platelet mean volume (Bld) [Entitic vol] 8.9 fL 6.2-12.0 [facility] Work Phone: Determination of erythrocyte mean corpuscular volume (MCV)on 01-23-2022 MCV (RBC) [Entitic vol] 87.4 fL 80-94 [facility] Work Phone: Hematocrit Auto (Bld) [Volum e fraction]on 01-23-2022 Hematocrit (Bld) [Volume fraction] 27.8 % 40-54 [facility] Work Phone: Laboratory - Chemistry and C hemistry - challengeon 01-23-2022 CO2 [Moles/Vol] 25.0 mmol/L 21.0-32.0 [facility] Work Phone: Urea nitrogen/Creatinine [Mass ratio] 23.1 mg/mg 10-20 [facility] Work Phone: Sodium (U) [Moles/Vol] 42 mmol/L Not Establ. [facility] Work Phone: Laboratory - Hematology and Cell countson 01-23-2022 Erythrocyte distribution width (RBC) [Entitic vol] 46.2 fL 35.1-43.9 [facility] Work Phone: Erythrocyte distribution width (RBC) [Ratio] 14.3 % 11.6-14.6 [facility] Work Phone: Immature granulocytes/100 WBC (Bld) 0.500 % 0.0-0.9 [facility] Work Phone: Comment on above: IG% - Immature Granu locytes (promyelocytes, myelocytes and metamyelocytes) > 1% indicates that a LEFT SHIFT is Present. MCH (RBC) [Entitic mass] 30.8 pg 27.0-32.0 [facility] Work Phone: Nucleated RBC/100 WBC (Bld) [Ratio] 0 % 0-5 [facility] Work Phone: Laboratory - Microbiology an d Antimicrobial susceptibilityon 01-23-2022 SARS-CoV-2 (COVID-19) RNA PEDRO+probe Ql (Unsp spec) Not detected Not Detect [facility] Work Phone: Comment on above: Normal Reference [...] 01-23-2022 MCHC (RBC) [Mass/Vol] 35.3 g/dL 32-36 [facility] Work Phone: No Panel Informationon 01-23 Estimated Creatinine Clearance Calc 163.56 ml/min [facility] Work Phone: Estimated GFR (MDRD) Amer 291 mL/min >60 [facility] Work Phone: Comment on above: GFR Calc Estimated GFR (MDRD) Non-Af Amer 241 mL/min >60 [facility] Work Phone: Comment on above: Non- GFR Calc Platelets bldon 01-23-2022 Platelets (Bld) [#/Vol] 315 10*3/uL 150-450 [facility] Work Phone: Serum or plasma calcium yesi urement (mass/volume)on 01-23-2022 Calcium [Mass/Vol] 9.0 mg/dL 8.5-10.1 [facility] Work Phone: Serum or plasma creatinine m easurement (mass/volume)on 01-23-2022 Creatinine [Mass/Vol] 0.39 mg/dL 0.70-1.30 [facility] Work Phone: Comment on above: The validity of the calculated GFR & GFRAA in patients over 70 years has not been determined. Clinical correlation is essential. Serum or plasma urea nitroge n measurement (mass/volume)on 01-23-2022 Urea nitrogen [Mass/Vol] 9 mg/dL 7-18 [facility] Work Phone: Thin prep Papanicolaou smear with manual screeningon 01-23-2022 Thin prep Papanicolaou smear with manual screening 7 5-15 [facility] Work Phone: Urine osmolality measurement on 01-23-2022 Osmolality (U) [Osmolality] 229 mOsm/KG >50 [facility] Work Phone: Comment on above: Normal Urine Referen ce Ranges Random: 50 - 1200 mOsm/kg H20 depending on fluid intake Random: >850 mOsm/kg after 12 hour fluid restriction 24 hour: ~300 - 900 mOsm/kg H2O No Panel Informationon 01-22 Thyroid Stimulating Hormone (TSH) 2.09 uIU/mL 0.358-3.74 [facility] Work Phone: Serum or plasma cortisol davey surement (mass/volume)on 01-22-2022 Cortisol [Mass/Vol] 47.00 ug/dL 3.44-22.45 [facility] Work Phone: Comment on above: Adult (AM) 5.27 - 22 .45 ug/dL Adult (PM) 3.44 - 16.76 ug/dLPlease note revised CORTISOL reference range effective 2019. Thin prep Papanicolaou smear with manual screeningon 01-22-2022 Thin prep Papanicolaou smear with manual screening 238 mOsm/KG 275-295 [facility] Work Phone: Absolute lymphocyte counton 01-17-2022 Lymphocytes Auto (Unsp spec) [#/Vol] 0.68 10*3/uL 0.83-4.51 [facility] Work Phone: Basophil percentageon 2021 Basophil percentage 3.5 mg/dL 2.5-4.9 [facility] Work Phone: Basophils/100 WBC (Bld) 0.5 % 0-1 [facility] Work Phone: Chloride [Moles/Vol] 93 mmol/L 98-107 [facility] Work Phone: Eosinophils/100 WBC (Bld) 0.8 % 0-5 [facility] Work Phone: Glucose [Mass/Vol] 83 mg/dL 74-106 [facility] Work Phone: Neutrophils (Bld) [#/Vol] 4.6 10*3/uL 2.0-7.7 [facility] Work Phone: Neutrophils/100 WBC (Bld) 73.7 % 47-70 [facility] Work Phone: Potassium [Moles/Vol] 3.7 mmol/L 3.5-5.1 [facility] Work Phone: Sodium [Moles/Vol] 130 mmol/L 136-145 [facility] Work Phone: WBC (Bld) [#/Vol] 6.3 10*3/uL 4.4-11.0 [facility] Work Phone: Blood erythrocytes count (nu mber/volume)on 01-17-2022 RBC (Bld) [#/Vol] 3.31 10*6/uL 4.6-6.2 [facility] Work Phone: Blood hemoglobin measurement (mass/volume)on 01-17-2022 Hemoglobin (Bld) [Mass/Vol] 10.3 g/dL 13.0-16.5 [facility] Work Phone: Blood lymphocytes/100 leukoc yteson 01-17-2022 Lymphocytes/100 WBC (Bld) 10.8 % 19-41 [facility] Work Phone: Blood monocytes/100 leukocyt eson 01-17-2022 Monocytes/100 WBC (Bld) 13.6 % 0-10 [facility] Work Phone: Blood platelet mean volumeon 01-17-2022 Platelet mean volume (Bld) [Entitic vol] 8.6 fL 6.2-12.0 [facility] Work Phone: Determination of erythrocyte mean corpuscular volume (MCV)on 01-17-2022 MCV (RBC) [Entitic vol] 91.5 fL 80-94 [facility] Work Phone: Hematocrit Auto (Bld) [Volum e fraction]on 01-17-2022 Hematocrit (Bld) [Volume fraction] 30.3 % 40-54 [facility] Work Phone: Laboratory - Chemistry and C hemistry - challengeon 01-17-2022 CO2 [Moles/Vol] 29.0 mmol/L 21.0-32.0 [facility] Work Phone: Magnesium [Mass/Vol] 1.7 mg/dL 1.6-2.6 [facility] Work Phone: Urea nitrogen/Creatinine [Mass ratio] 21.0 mg/mg 10-20 [facility] Work Phone: Laboratory - Hematology and Cell countson 01-17-2022 Erythrocyte distribution width (RBC) [Entitic vol] 49.4 fL 35.1-43.9 [facility] Work Phone: Erythrocyte distribution width (RBC) [Ratio] 14.8 % 11.6-14.6 [facility] Work Phone: Immature granulocytes/100 WBC (Bld) 0.600 % 0.0-0.9 [facility] Work Phone: Comment on above: IG% - Immature Granu locytes (promyelocytes, myelocytes and metamyelocytes) > 1% indicates that a LEFT SHIFT is Present. MCH (RBC) [Entitic mass] 31.1 pg 27.0-32.0 [facility] Work Phone: Nucleated RBC/100 WBC (Bld) [Ratio] 0 % 0-5 [facility] Work Phone: MCHC Auto (RBC) [Mass/Vol]on 01-17-2022 MCHC (RBC) [Mass/Vol] 34.0 g/dL 32-36 [facility] Work Phone: No Panel Informationon 01-17 Estimated Creatinine Clearance Calc 193.58 ml/min [facility] Work Phone: Estimated GFR (MDRD) Amer 348 mL/min >60 [facility] Work Phone: Comment on above: GFR Calc Estimated GFR (MDRD) Non-Af Amer 288 mL/min >60 [facility] Work Phone: Comment on above: Non- GFR Calc Platelets bldon 01-17-2022 Platelets (Bld) [#/Vol] 350 10*3/uL 150-450 [facility] Work Phone: Serum or plasma calcium yesi urement (mass/volume)on 01-17-2022 Calcium [Mass/Vol] 9.1 mg/dL 8.5-10.1 [facility] Work Phone: Serum or plasma creatinine m easurement (mass/volume)on 01-17-2022 Creatinine [Mass/Vol] 0.33 mg/dL 0.70-1.30 [facility] Work Phone: Comment on above: The validity of the calculated GFR & GFRAA in patients over 70 years has not been determined. Clinical correlation is essential. Serum or plasma urea nitroge n measurement (mass/volume)on 01-17-2022 Urea nitrogen [Mass/Vol] 7 mg/dL 7-18 [facility] Work Phone: Thin prep Papanicolaou smear with manual screeningon 01-17-2022 Thin prep Papanicolaou smear with manual screening 8 5-15 [facility] Work Phone: Tobacco Screening.on 022 Fall risk assessment a) No falls within the last year [facility] Work Phone: Tobacco use status CPHS a) Yes [facility] Work Phone: Tobacco Screening. Yes [facility] [facility] Work Phone: Absolute lymphocyte counton 01-10-2022 Lymphocytes Auto (Unsp spec) [#/Vol] 0.73 10*3/uL 0.83-4.51 [facility] Work Phone: Basophil percentageon 2021 Basophil percentage 3.9 mg/dL 2.5-4.9 [facility]: Basophils/100 WBC (Bld) 0.2 % 0-1 [facility] Work Phone: Chloride [Moles/Vol] 94 mmol/L 98-107 [facility] Work Phone: Eosinophils/100 WBC (Bld) 0.7 % 0-5 [facility] Work Phone: Glucose [Mass/Vol] 90 mg/dL 74-106 [facility] Work Phone: Neutrophils (Bld) [#/Vol] 4.4 10*3/uL 2.0-7.7 [facility] Work Phone: Neutrophils/100 WBC (Bld) 72.5 % 47-70 [facility] Work Phone: Potassium [Moles/Vol] 3.8 mmol/L 3.5-5.1 [facility] Work Phone: Sodium [Moles/Vol] 131 mmol/L 136-145 [facility] Work Phone: WBC (Bld) [#/Vol] 6.0 10*3/uL 4.4-11.0 [facility] Work Phone: Blood erythrocytes count (nu mber/volume)on 01-10-2022 RBC (Bld) [#/Vol] 3.34 10*6/uL 4.6-6.2 [facility] Work Phone: Blood hemoglobin measurement (mass/volume)on 01-10-2022 Hemoglobin (Bld) [Mass/Vol] 10.4 g/dL 13.0-16.5 [facility] Work Phone: Blood lymphocytes/100 leukoc yteson 01-10-2022 Lymphocytes/100 WBC (Bld) 12.2 % 19-41 [facility] Work Phone: Blood monocytes/100 leukocyt eson 01-10-2022 Monocytes/100 WBC (Bld) 13.4 % 0-10 [facility] Work Phone: Blood platelet mean volumeon 01-10-2022 Platelet mean volume (Bld) [Entitic vol] 8.0 fL 6.2-12.0 [facility] Work Phone: Determination of erythrocyte mean corpuscular volume (MCV)on 01-10-2022 MCV (RBC) [Entitic vol] 92.2 fL 80-94 [facility] Work Phone: Hematocrit Auto (Bld) [Volum e fraction]on 01-10-2022 Hematocrit (Bld) [Volume fraction] 30.8 % 40-54 [facility] Work Phone: Laboratory - Chemistry and C hemistry - challengeon 01-10-2022 CO2 [Moles/Vol] 29.0 mmol/L 21.0-32.0 [facility] Work Phone: Magnesium [Mass/Vol] 1.9 mg/dL 1.6-2.6 [facility] Work Phone: Urea nitrogen/Creatinine [Mass ratio] 25.3 mg/mg 10-20 [facility] Work Phone: Laboratory - Hematology and Cell countson 01-10-2022 Erythrocyte distribution width (RBC) [Entitic vol] 48.8 fL 35.1-43.9 [facility] Work Phone: Erythrocyte distribution width (RBC) [Ratio] 14.6 % 11.6-14.6 [facility] Work Phone: Immature granulocytes/100 WBC (Bld) 1.000 % 0.0-0.9 [facility] Work Phone: Comment on above: IG% - Immature Granu locytes (promyelocytes, myelocytes and metamyelocytes) > 1% indicates that a LEFT SHIFT is Present. MCH (RBC) [Entitic mass] 31.1 pg 27.0-32.0 [facility] Work Phone: Nucleated RBC/100 WBC (Bld) [Ratio] 0 % 0-5 [facility] Work Phone: MCHC Auto (RBC) [Mass/Vol]on 01-10-2022 MCHC (RBC) [Mass/Vol] 33.8 g/dL 32-36 [facility] Work Phone: No Panel Informationon 01-10 Estimated Creatinine Clearance Calc 162.02 ml/min [facility] Work Phone: Estimated GFR (MDRD) Amer 286 mL/min >60 [facility] Work Phone: Comment on above: GFR Calc Estimated GFR (MDRD) Non-Af Amer 236 mL/min >60 [facility] Work Phone: Comment on above: Non- GFR Calc Platelets bldon 01-10-2022 Platelets (Bld) [#/Vol] 377 10*3/uL 150-450 [facility] Work Phone: Serum or plasma calcium yesi urement (mass/volume)on 01-10-2022 Calcium [Mass/Vol] 8.5 mg/dL 8.5-10.1 [facility] Work Phone: Serum or plasma creatinine m easurement (mass/volume)on 01-10-2022 Creatinine [Mass/Vol] 0.40 mg/dL 0.70-1.30 [facility] Work Phone: Comment on above: The validity of the calculated GFR & GFRAA in patients over 70 years has not been determined. Clinical correlation is essential. Serum or plasma urea nitroge n measurement (mass/volume)on 01-10-2022 Urea nitrogen [Mass/Vol] 10 mg/dL 7-18 [facility] Work Phone: Thin prep Papanicolaou smear with manual screeningon 01-10-2022 Thin prep Papanicolaou smear with manual screening 8 5-15 [facility] Work Phone: Tobacco Screening.on 022 Fall risk assessment a) No falls within the last year [facility] Work Phone: Tobacco use status CP b) No M [facility] Work Phone: Absolute lymphocyte counton 12-18-2021 Lymphocytes Auto (Unsp spec) [#/Vol] 1.35 10*3/uL 0.83-4.51 [facility] Work Phone: Basophil percentageon 2021 Basophils/100 WBC (Bld) 0.3 % 0-1 [facility] Work Phone: Bilirubin [Mass/Vol] 0.30 mg/dL 0.20-1.00 [facility] Work Phone: Comment on above: For patients on eltr ombopag therapy, use of Dimension [place] TBIL is not recommended. Chloride [Moles/Vol] 94 mmol/L 98-107 [facility] Work Phone: Eosinophils/100 WBC (Bld) 0.6 % 0-5 [facility] Work Phone: Glucose [Mass/Vol] 106 mg/dL 74-106 [facility] Work Phone: Comment on above: Fasting Glucose resu lt from 100 to 125 mg/dL suggests IMPAIRED HOMEOSTASIS per A.D.A. criteria. Neutrophils (Bld) [#/Vol] 6.3 10*3/uL 2.0-7.7 [facility] Work Phone: Neutrophils/100 WBC (Bld) 69.8 % 47-70 [facility] Work Phone: Potassium [Moles/Vol] 3.8 mmol/L 3.5-5.1 [facility] Work Phone: Protein [Mass/Vol] 7.2 g/dL 6.4-8.2 [facility] Work Phone: Sodium [Moles/Vol] 129 mmol/L 136-145 [facility] Work Phone: WBC (Bld) [#/Vol] 9.0 10*3/uL 4.4-11.0 [facility] Work Phone: Blood erythrocytes count (nu mber/volume)on 12-18-2021 RBC (Bld) [#/Vol] 3.40 10*6/uL 4.6-6.2 [facility] Work Phone: Blood hemoglobin measurement (mass/volume)on 12-18-2021 Hemoglobin (Bld) [Mass/Vol] 11.0 g/dL 13.0-16.5 [facility] Work Phone: Blood lymphocytes/100 leukoc yteson 12-18-2021 Lymphocytes/100 WBC (Bld) 15.0 % 19-41 [facility] Work Phone: Blood monocytes/100 leukocyt eson 12-18-2021 Monocytes/100 WBC (Bld) 13.7 % 0-10 [facility] Work Phone: Blood platelet mean volumeon 12-18-2021 Platelet mean volume (Bld) [Entitic vol] 8.5 fL 6.2-12.0 [facility] Work Phone: Determination of erythrocyte mean corpuscular volume (MCV)on 12-18-2021 MCV (RBC) [Entitic vol] 91.8 fL 80-94 [facility] Work Phone: Hematocrit Auto (Bld) [Volum e fraction]on 12-18-2021 Hematocrit (Bld) [Volume fraction] 31.2 % 40-54 [facility] Work Phone: Iron measurement (mass/mass) on 12-18-2021 Iron (Unsp spec) [Mass/Mass] 34 ug/dL 65-175 [facility] Laboratory - Chemistry and C hemistry - challengeon 12-18-2021 ALP [Catalytic activity/Vol] 92 U/L 45-117 [facility] Work Phone: ALT [Catalytic activity/Vol] 24 U/L 16-61 [facility] Work Phone: CO2 [Moles/Vol] 30.0 mmol/L 21.0-32.0 [facility] Work Phone: Globulin (S) [Mass/Vol] 4.0 g/dL 2.2-4.2 [facility] Work Phone: Magnesium [Mass/Vol] 2.0 mg/dL 1.6-2.6 [facility] Work [facility]: Urea nitrogen/Creatinine [Mass ratio] 18.5 mg/mg 10-20 [facility] Work Phone: Laboratory - Hematology and Cell countson 12-18-2021 Erythrocyte distribution width (RBC) [Entitic vol] 46.4 fL 35.1-43.9 [facility] Work Phone: Erythrocyte distribution width (RBC) [Ratio] 13.8 % 11.6-14.6 [facility] Work Phone: Immature granulocytes/100 WBC (Bld) 0.600 % 0.0-0.9 [facility] Work Phone: Comment on above: IG% - Immature Granu locytes (promyelocytes, myelocytes and metamyelocytes) > 1% indicates that a LEFT SHIFT is Present. MCH (RBC) [Entitic mass] 32.4 pg 27.0-32.0 [facility] Work Phone: Nucleated RBC/100 WBC (Bld) [Ratio] 0 % 0-5 [facility] Work Phone: MCHC Auto (RBC) [Mass/Vol]on 12-18-2021 MCHC (RBC) [Mass/Vol] 35.3 g/dL 32-36 [facility] Work [facility]: No Panel Informationon 12-18 Estimated Creatinine Clearance Calc 133.30 ml/min [facility] Work Phone: Estimated GFR (MDRD) Amer 225 mL/min >60 [facility] Work Phone: Comment on above: GFR Calc Estimated GFR (MDRD) Non-Af Amer 186 mL/min >60 [facility] Work Phone: Comment on above: Non- GFR Calc Thyroid Stimulating Hormone (TSH) 5.67 uIU/mL 0.358-3.74 [facility] Total Iron Binding Capacity 286 ug/dL 250-450 [facility] Platelets bldon 12-18-2021 Platelets (Bld) [#/Vol] 413 10*3/uL 150-450 [facility] Work Phone: Serum or plasma albumin yesi urement (mass/volume)on 12-18-2021 Albumin [Mass/Vol] 3.2 g/dL 3.2-5.0 [facility] Work Phone: Serum or plasma albumin/glob ulin mass ratioon 12-18-2021 Albumin/Globulin [Mass ratio] 0.8 {ratio} 0.9-2.4 [facility] Work Phone: Serum or plasma calcium yesi urement (mass/volume)on 12-18-2021 Calcium [Mass/Vol] 8.7 mg/dL 8.5-10.1 [facility] Work Phone: Serum or plasma creatinine m easurement (mass/volume)on 12-18-2021 Creatinine [Mass/Vol] 0.49 mg/dL 0.70-1.30 [facility] Work Phone: Comment on above: The validity of the calculated GFR & GFRAA in patients over 70 years has not been determined. Clinical correlation is essential. Serum or plasma ferritin davey surement (mass/volume)on 12-18-2021 Ferritin [Mass/Vol] 284 ng/mL 26-388 [facility] Serum or plasma iron saturat ion measurement (mass fraction)on 12-18-2021 Iron saturation [Mass fraction] 11.9 % 15.0-55.0 [facility] Serum or plasma urea nitroge n measurement (mass/volume)on 12-18-2021 Urea nitrogen [Mass/Vol] 9 mg/dL 7-18 [facility] Work Phone: Thin prep Papanicolaou smear with manual screeningon 12-18-2021 Thin prep Papanicolaou smear with manual screening 12 U/L 15-37 [facility] Work Phone: Thin prep Papanicolaou smear with manual screening 5 5-15 [facility] Work Phone: Tobacco Screening.on 022 Fall risk assessment a) No falls within the last year [facility] Work Phone: Tobacco use status CPHS b) No [facility] Work Phone: Absolute lymphocyte counton 12-15-2021 Lymphocytes Auto (Unsp spec) [#/Vol] 0.82 10*3/uL 0.83-4.51 [facility] Work Phone: Basophil percentageon 2021 Basophils/100 WBC (Bld) 0.4 % 0-1 [facility] Work Phone: Eosinophils/100 WBC (Bld) 0.4 % 0-5 [facility] Work Phone: Neutrophils (Bld) [#/Vol] 5.6 10*3/uL 2.0-7.7 [facility] Work Phone: Neutrophils/100 WBC (Bld) 75.7 % 47-70 [facility] Work Phone: WBC (Bld) [#/Vol] 7.4 10*3/uL 4.4-11.0 [facility] Work Phone: Blood erythrocytes count (nu mber/volume)on 12-15-2021 RBC (Bld) [#/Vol] 3.93 10*6/uL 4.6-6.2 [facility] Work Phone: Blood hemoglobin measurement (mass/volume)on 12-15-2021 Hemoglobin (Bld) [Mass/Vol] 12.5 g/dL 13.0-16.5 [facility] Work Phone: Blood lymphocytes/100 leukoc yteson 12-15-2021 Lymphocytes/100 WBC (Bld) 11.1 % 19-41 [facility] Work Phone: Blood monocytes/100 leukocyt eson 12-15-2021 Monocytes/100 WBC (Bld) 11.9 % 0-10 [facility] Work Phone: Blood platelet mean volumeon 12-15-2021 Platelet mean volume (Bld) [Entitic vol] 8.6 fL 6.2-12.0 [facility] Work Phone: Determination of erythrocyte mean corpuscular volume (MCV)on 12-15-2021 MCV (RBC) [Entitic vol] 90.8 fL 80-94 [facility] Work Phone: Hematocrit Auto (Bld) [Volum e fraction]on 12-15-2021 Hematocrit (Bld) [Volume fraction] 35.7 % 40-54 [facility] Work Phone: Laboratory - Hematology and Cell countson 12-15-2021 Erythrocyte distribution width (RBC) [Entitic vol] 45.6 fL 35.1-43.9 [facility] Work Phone: Erythrocyte distribution width (RBC) [Ratio] 13.4 % 11.6-14.6 [facility] Work Phone: Immature granulocytes/100 WBC (Bld) 0.500 % 0.0-0.9 [facility] Work Phone: Comment on above: IG% - Immature Granu locytes (promyelocytes, myelocytes and metamyelocytes) > 1% indicates that a LEFT SHIFT is Present. MCH (RBC) [Entitic mass] 31.8 pg 27.0-32.0 [facility] Work Phone: Nucleated RBC/100 WBC (Bld) [Ratio] 0 % 0-5 [facility] Work Phone: MCHC Auto (RBC) [Mass/Vol]on 12-15-2021 MCHC (RBC) [Mass/Vol] 35.0 g/dL 32-36 [facility] Work Phone: Platelets bldon 12-15-2021 Platelets (Bld) [#/Vol] 450 10*3/uL 150-450 [facility] Work Phone: Falls Risk Screeningon 12-04 Fall risk assessment a) No falls within the last year [facility] Work Phone: Tobacco use status [facility] b) No M [facility] Work Phone: Tobacco Screening.on 022 Fall risk assessment a) No falls within the last year [facility] Work Phone: Tobacco use status [facility] b) No M [facility] Work Phone: Absolute lymphocyte counton 11-20-2021 Lymphocytes Auto (Unsp spec) [#/Vol] 0.53 10*3/uL 0.83-4.51 [facility] Work Phone: Basophil percentageon 2021 Basophils/100 WBC (Bld) 0.2 % 0-1 [facility] Work Phone: Chloride [Moles/Vol] 95 mmol/L 98-107 [facility] Work Phone: Eosinophils/100 WBC (Bld) 0.8 % 0-5 [facility] Work Phone: Glucose [Mass/Vol] 151 mg/dL 74-106 [facility] Work Phone: Comment on above: Fasting Glucose resu lt greater than or equal to 126 mg/dL suggests DIABETES MELLITUS per A.D.A. criteria. Neutrophils (Bld) [#/Vol] 6.8 10*3/uL 2.0-7.7 [facility] Work Phone: Neutrophils/100 WBC (Bld) 81.2 % 47-70 [facility] Work Phone: Potassium [Moles/Vol] 4.3 mmol/L 3.5-5.1 [facility] Work Phone: Sodium [Moles/Vol] 130 mmol/L 136-145 [facility] Work Phone: WBC (Bld) [#/Vol] 8.4 10*3/uL 4.4-11.0 [facility] Work Phone: Blood erythrocytes count (nu mber/volume)on 11-20-2021 RBC (Bld) [#/Vol] 3.07 10*6/uL 4.6-6.2 [facility] Work Phone: Blood hemoglobin measurement (mass/volume)on 11-20-2021 Hemoglobin (Bld) [Mass/Vol] 10.0 g/dL 13.0-16.5 [facility] Work Phone: Blood lymphocytes/100 leukoc yteson 11-20-2021 Lymphocytes/100 WBC (Bld) 6.3 % 19-41 [facility] Work Phone: Blood monocytes/100 leukocyt eson 11-20-2021 Monocytes/100 WBC (Bld) 10.4 % 0-10 [facility] Work Phone: Blood platelet mean volumeon 11-20-2021 Platelet mean volume (Bld) [Entitic vol] 9.3 fL 6.2-12.0 [facility] Work Phone: Determination of erythrocyte mean corpuscular volume (MCV)on 11-20-2021 MCV (RBC) [Entitic vol] 93.5 fL 80-94 [facility] Work Phone: Hematocrit Auto (Bld) [Volum e fraction]on 11-20-2021 Hematocrit (Bld) [Volume fraction] 28.7 % 40-54 [facility] Work Phone: Laboratory - Chemistry and C hemistry - challengeon 11-20-2021 CO2 [Moles/Vol] 28.0 mmol/L 21.0-32.0 [facility] Work Phone: Cobalamin (Vitamin B12) [Mass/Vol] 486 pg/mL 211-911 [facility] Work Phone: Urea nitrogen/Creatinine [Mass ratio] 33.2 mg/mg 10-20 [facility] Work Phone: Laboratory - Hematology and Cell countson 11-20-2021 Erythrocyte distribution width (RBC) [Entitic vol] 48.7 fL 35.1-43.9 [facility] Work Phone: Erythrocyte distribution width (RBC) [Ratio] 14.2 % 11.6-14.6 [facility] Work Phone: Immature granulocytes/100 WBC (Bld) 1.100 % 0.0-0.9 [facility] Work Phone: Comment on above: IG% - Immature Granu locytes (promyelocytes, myelocytes and metamyelocytes) > 1% indicates that a LEFT SHIFT is Present. MCH (RBC) [Entitic mass] 32.6 pg 27.0-32.0 [facility] Work Phone: Nucleated RBC/100 WBC (Bld) [Ratio] 0 % 0-5 [facility] Work Phone: MCHC Auto (RBC) [Mass/Vol]on 11-20-2021 MCHC (RBC) [Mass/Vol] 34.8 g/dL 32-36 [facility] Work Phone: No Panel Informationon 11-20 Estimated GFR (MDRD) Amer 290 mL/min >60 [facility] Work Phone: Comment on above: GFR Calc Estimated GFR (MDRD) Non-Af Amer 240 mL/min >60 [facility] Work Phone: Comment on above: Non- GFR Calc Thyroid Stimulating Hormone (TSH) 32.90 uIU/mL 0.358-3.74 [facility] Work Phone: Platelets bldon 11-20-2021 Platelets (Bld) [#/Vol] 614 10*3/uL 150-450 [facility] Work Phone: Serum or plasma calcium yesi urement (mass/volume)on 11-20-2021 Calcium [Mass/Vol] 8.2 mg/dL 8.5-10.1 [facility] Work Phone: Serum or plasma creatinine m easurement (mass/volume)on 11-20-2021 Creatinine [Mass/Vol] 0.39 mg/dL 0.70-1.30 [facility] Work Phone: Comment on above: The validity of the calculated GFR & GFRAA in patients over 70 years has not been determined. Clinical correlation is essential. Serum or plasma transthyreti n measurement (mass/volume)on 11-20-2021 Prealbumin [Mass/Vol] 20.9 mg/dL 20.0-40.0 [facility] Work Phone: Serum or plasma urea nitroge n measurement (mass/volume)on 11-20-2021 Urea nitrogen [Mass/Vol] 13 mg/dL 7-18 [facility] Work Phone: Thin prep Papanicolaou smear with manual screeningon 11-20-2021 Thin prep Papanicolaou smear with manual screening 7 5-15 [facility] Work Phone: Coronavirus 2019 RNA by PCR, Screening Asymptomticon 11-17-2021 Coronavirus 2019 RNA by PCR, Screening Asymptomtic Not detected Normal See Below [facility] Work Phone: Comment on above: SOURCE: Nasal, Nasop haryngealReference Range: Not Detected.This test has received FDA Emergency Use Authorization (EUA) and has been verified by [facility] ([facility]). This test is only authorized for the duration of time that circumstances exist to justify the authorization of the emergency use of in vitro diagnostic tests for the detection of SARS-CoV-2 virus and/or diagnosis of COVID-19 infection under section 564(b)(1) of the Act, 21 U.S.C. 360bbb-3(b)(1), unless the authorization is terminated or revoked sooner. [facility] is certified under CLIA-88 as qualified to perform high complexity testing. Testing is performed in the [facility] located at [address] [place] [address].SARS-CoV-2/Flu/RSV Multiplex Test: Fact sheet for providers: https://www.fda.gov/media/205249/downloadFact sheet for patients: https://www.fda.gov/media/766972/download Renal Function Panelon 11-17 Albumin BCP dye [Mass/Vol] 3.1 g/dL below low threshold 3.4 - 5.0 [facility] Work Phone: Anion gap [Moles/Vol] 12 mmol/L 10 - 20 [facility] Work Phone: Calcium [Mass/Vol] 8.7 mg/dL 8.6 - 10.6 [facility] [facility] Work Phone: Chloride [Moles/Vol] 96 mmol/L below low threshold 98 - 107 [facility] Work Phone: CO2 [Moles/Vol] 29 mmol/L 21 - 32 [facility] Work Phone: Creatinine [Mass/Vol] 0.34 mg/dL below low threshold See Below [facility] Work Phone: Comment on above: Reference Range: 0.5 0 - 1.30 Glucose [Mass/Vol] 78 mg/dL 74 - 99 [facility] [facility] Work Phone: Phosphate [Mass/Vol] 3.8 mg/dL 2.5 [...] 4.8 mmol/L 3.5 - 5.3 [facility] Work Phone: Sodium [Moles/Vol] 132 mmol/L below low threshold 136 - 145 [facility] Work Phone: Urea nitrogen [Mass/Vol] 11 mg/dL 6 - 23 [facility] Work Phone: Renal Function Panel >90 >90 [facility] Work Phone: Comment on above: CALCULATIONS OF JORGE MATED GFR ARE PERFORMED USING THE 2020 CKD-EPI STUDY REFIT EQUATION WITHOUT THE RACE VARIABLE FOR THE IDMS-TRACEABLE CREATININE METHODS.https://jasn.asnjournals.org/content/early/ ASN.7488478376 Vitamin D 25-Hydroxyon 11-17 25-hydroxyvitamin D3 [Mass/Vol] 23 ng/mL Abnormal [facility] Work Phone: Comment on above: .DEFICIENCY: < [...] % below low threshold See Below [facility] Work Phone: Comment on above: Reference Range: [...] 99 fL 80 - 100 [facility] Work Phone: Platelets (Bld) [#/Vol] 560 10*3/uL above hi gh threshold 150 - 450 [facility] Work Phone: RBC (Bld) [#/Vol] 3.27 {x10E12/L} below low threshold See Below [facility] Work Phone: Comment on above: Reference Range: 4.5 0 - 5.90 WBC (Bld) [#/Vol] 6.6 10*3/uL 4.4 - 11.3 [facility] Work Phone: Magnesium, Serumon 2 Magnesium [Mass/Vol] 1.97 mg/dL See Below [facility] [place] Work Phone: Comment on above: Reference Range: 1.6 0 - 2.40 No Panel Informationon 11-16 0.0 {/100_WBC} 0.0-0.0 [facility]tol[facility] ngol [facility] Work Phone: Renal Function Panelon 11-16 Albumin BCP dye [Mass/Vol] 2.9 g/dL below low threshold 3.4 - 5.0 [facility]tolaryngol [facility] Work Phone: Anion gap [Moles/Vol] 13 mmol/L 10 - 20 [facility]- Otolaryngol [facility] Work Phone: Calcium [Mass/Vol] 8.1 mg/dL below low threshold 8.6 - 10.6 [facility] Work Phone: Chloride [Moles/Vol] 97 mmol/L below low threshold 98 - 107 [facility]tolaryngol [facility] Work Phone: CO2 [Moles/Vol] 26 mmol/L 21 - 32 MG-Otolar yngol [facility] Work Phone: Creatinine [Mass/Vol] 0.32 mg/dL below low threshold See Below [facility]tolaryng[facility] Work Phone: Comment on above: Reference Range: 0.5 0 - 1.30 Glucose [Mass/Vol] 96 mg/dL 74 - 99 [facility] laryngol [facility]-[place] Work Phone: Phosphate [Mass/Vol] 3.8 [...] 4.9 mmol/L 3.5 - 5.3 [facility]- Otolaryngol [facility] Work Phone: Sodium [Moles/Vol] 131 mmol/L below low threshold 136 - 145 [facility] Work Phone: Urea nitrogen [Mass/Vol] 12 mg/dL 6 - 23 [facility] Work Phone: Renal Function Panel >90 >90 [facility]-O tolaryngol [facility]-[place] Work Phone: Comment on above: CALCULATIONS OF JORGE MATED GFR ARE PERFORMED USING THE 2020 CKD-EPI STUDY REFIT EQUATION WITHOUT THE RACE VARIABLE FOR THE IDMS-TRACEABLE CREATININE METHODS.https://jasn.asnjournals.org/content// ASN.9613373764 Renal Function Panelon 11-15 Albumin BCP dye [Mass/Vol] 3.2 g/dL below low threshold 3.4 - 5.0 MG-Otolaryngol [facility] Work Phone: Anion gap [Moles/Vol] 14 mmol/L 10 - 20 MG- Otolaryngol [facility] Work Phone: Calcium [Mass/Vol] 8.3 mg/dL below low threshold 8.6 - 10.6 [facility]aryng[facility] Work Phone: Chloride [Moles/Vol] 99 mmol/L 98 - 107 [facility]ol [facility] Work Phone: CO2 [Moles/Vol] 23 mmol/L 21 - 32 MG-Otolar yngol ogy-[place] Work Phone: Creatinine [Mass/Vol] 0.28 mg/dL below low threshold See Below [facility]tolaryngol [facility] Work Phone: Comment on above: Reference Range: 0.5 0 - 1.30 Glucose [Mass/Vol] 102 mg/dL above high threshold 74 - 99 [facility] Work Phone: Phosphate [Mass/Vol] 3.8 mg/dL 2.5 - 4.9 [facility]laryngol [facility] Work Phone: Comment on above: The performance [...] above high threshold 3.5 - 5.3 [facility]tolaryng[facility] Work Phone: Comment on above: MILD HEMOLYSIS DETEC ISABELL. The result may be falsely elevated due tohemolysis or other interferents. Clinical correlation is recommended.Repeat testing may be considered. Sodium [Moles/Vol] 130 mmol/L below low threshold 136 - 145 [facility]tolaryngol [facility] Work Phone: Urea nitrogen [Mass/Vol] 14 mg/dL 6 - 23 [facility]tolaryngol [facility] Work Phone: Renal Function Panel >90 >90 [facility]laryngol [facility] Work Phone: Comment on above: CALCULATIONS OF JORGE MATED GFR ARE PERFORMED USING THE 2020 CKD-EPI STUDY REFIT EQUATION WITHOUT THE RACE VARIABLE FOR THE IDMS-TRACEABLE CREATININE METHODS.https://jasn.asnjournals.org/content/early/ ASN.6582650146 Laboratory - Chemistry and C hemistry - challengeon 11-14-2021 Creatinine (U) [Mass/Vol] 48.6 mg/dL See Below [facility]-Otolaryngol [facility] Work Phone: Comment on above: Reference Range: 20. 0 - 370.0 Osmolality (U) [Osmolality] 474 mosm/kg 200 - 1200 [facility]-Otolaryngol [facility] Work Phone: Potassium (U) [Moles/Vol] 21 mmol/L See Below [facility]-Otolaryngol [facility] Work Phone: Comment on above: Reference Range: Not Established Potassium/Creatinine (U) [Molar ratio] 43 {mmol/g_Creat} See Below [facility]-Otolaryng ol [facility] Work Phone: Comment on above: Reference Range: Not Established Sodium (U) [Moles/Vol] 79 mmol/L See Below [facility] -Otolaryngol [facility] Work Phone: Comment on above: Reference Range: Not Established Sodium/Creatinine (U) [Ratio] 163 {mmol/g_Creat} See Below MG-Otolaryngo l [employer] Work Phone: Comment on above: Reference Range: Not Established Urea nitrogen (U) [Mass/Vol] 627 mg/dL See Below MG-Otolaryngol [email or web address] Work Phone: Comment on above: Reference Range: Not Established Urea/Creatinine (U) [Molar ratio] 12.9 {g/g_Creat} See Below MG-Otolaryngol [email or web address] Work Phone: Comment on above: Reference Range: Not Established Laboratory - Hematology and Cell countson 11-14-2021 Erythrocyte distribution width (RBC) [Ratio] 14.7 % above high threshold See Below MG-Otolaryngol [email or web address] Work Phone: Comment on above: Reference Range: 11. 5 - 14.5 Hematocrit (Bld) [Volume fraction] 34.2 % below low threshold See Below MG-Otolaryngol [email or web address] Work Phone: Comment on above: Reference Range: 41. 0 - 52.0 Hemoglobin (Bld) [Mass/Vol] 11.3 g/dL below low threshold See Below MG-Otolaryngol [email or web address] Work Phone: Comment on above: Reference Range: 13. 5 - 17.5 MCHC (RBC) [Mass/Vol] 33.0 g/dL See Below MG- Otolaryngol [email or web address] Work Phone: Comment on above: Reference Range: 32. 0 - 36.0 MCV (RBC) [Entitic vol] 97 fL 80 - 100 M G-Otolaryngol [email or web address] Work Phone: Platelets (Bld) [#/Vol] 421 10*3/uL 150 - 450 MG-Otolaryngol [email or web address] Work Phone: RBC (Bld) [#/Vol] 3.53 {x10E12/L} below low threshold See Below [facility]tolaryngol [facility] Work Phone: Comment on above: Reference Range: 4.5 0 - 5.90 WBC (Bld) [#/Vol] 8.0 10*3/uL 4.4 - 11.3 MG-[place] laryngol [facility]-[place] Work Phone: Magnesium, Serumon Magnesium [Mass/Vol] 1.93 mg/dL See Below [facility]ol [facility] Work Phone: Comment on above: Reference Range: 1.6 0 - 2.40 No Panel Informationon 11-14 128 {mmol/g_Creat} 23 - 275 MG-[facility] laryngol [facility] Work Phone: 62 mmol/L See Below [facility]tolaryngol [facility] Work Phone: Comment on above: Reference Range: Not Established 0.0 {/100_WBC} 0.0-0.0 [facility]ary [facility]ol [facility] Work Phone: Renal Function Panelon 11-14 Albumin BCP dye [Mass/Vol] 2.7 g/dL below low threshold 3.4 - 5.0 [facility]tolaryngol [facility] Work Phone: Anion gap [Moles/Vol] 13 mmol/L 10 - 20 MG- Otolaryngol [facility] Work Phone: Calcium [Mass/Vol] 7.7 mg/dL below [...] 3.4 mg/dL 2.5 - 4.9 [facility] tolaryngol [facility] Work Phone: Comment on above: The performance [...] below low threshold 136 - 145 [facility]tolaryngol [facility] Work Phone: Urea nitrogen [Mass/Vol] 15 mg/dL 6 - 23 [facility]tolaryngol [facility] Work Phone: Renal Function Panel >90 >90 [facility]laryngol [facility] Work Phone: Comment on above: CALCULATIONS OF JORGE MATED GFR ARE PERFORMED USING THE 2020 CKD-EPI STUDY REFIT EQUATION WITHOUT THE RACE VARIABLE FOR THE IDMS-TRACEABLE CREATININE METHODS.https://jasn.asnjournals.org/content// ASN.8915352856 Laboratory - Chemistry and C hemistry - challengeon 11-13-2021 Glucose [Mass/Vol] 83 mg/dL 74 - 99 [facility] laryngol [facility] Work Phone: Laboratory - Hematology and Cell countson 11-13-2021 Erythrocyte distribution width (RBC) [Ratio] 14.5 % See Below MG-Otolaryngol [employer] Work Phone: Comment on above: Reference Range: 11. 5 - 14.5 Hematocrit (Bld) [Volume fraction] 32.7 % below low threshold See Below MG-Otolaryngol [employer] Work Phone: Comment on above: Reference Range: 41. 0 - 52.0 Hemoglobin (Bld) [Mass/Vol] 11.1 g/dL below low threshold See Below MG-Otolaryngol [employer] Work Phone: Comment on above: Reference Range: 13. 5 - 17.5 MCHC (RBC) [Mass/Vol] 33.9 g/dL See Below MG- Otolaryngol [employer] Work Phone: Comment on above: Reference Range: 32. 0 - 36.0 MCV (RBC) [Entitic vol] 95 fL 80 - 100 M G-Otolaryngol [employer] Work Phone: Platelets (Bld) [#/Vol] 381 10*3/uL 150 - 450 MG-Otolaryngol [place] Work Phone: RBC (Bld) [#/Vol] 3.46 {x10E12/L} below low threshold See Below MG-Otolaryngol [place] Work Phone: Comment on above: Reference Range: 4.5 0 - 5.90 WBC (Bld) [#/Vol] 9.3 10*3/uL 4.4 - 11.3 MG-[facility]ik[place] laryngol [employer] Work Phone: Magnesium, Serumon Magnesium [Mass/Vol] 1.96 mg/dL See Below MG-O tolaryngol [employer] Work Phone: Comment on above: Reference Range: 1.6 0 - 2.40 No Panel Informationon 11-13 0.0 {/100_WBC} 0.0-0.0 [facility]tol[facility] ngol [facility] Work Phone: Radiologyon 11-13-2021 XR Chest Single [...] 98 mmol/L 98 - 107 [facility]laryngol [facility] Work Phone: CO2 [Moles/Vol] 26 mmol/L 21 - 32 MG-Otolar yngol ogy-[place] Work Phone: Creatinine [Mass/Vol] 0.32 mg/dL below low threshold See Below MG-Otolaryngol [facility] Work Phone: Comment on above: Reference Range: 0.5 0 - 1.30 Glucose [Mass/Vol] 94 mg/dL 74 - 99 [facility] [facility] Work Phone: Phosphate [Mass/Vol] 3.4 mg/dL 2.5 [...] 4.6 mmol/L 3.5 - 5.3 MG- Otolaryngol [facility] Work Phone: Sodium [Moles/Vol] 131 mmol/L below [...] RACE VARIABLE FOR THE IDMS-TRACEABLE CREATININE METHODS.https://jasn.asnjournals.org/content// ASN.7768558918 Laboratory - Chemistry and C hemistry - challengeon 11-12-2021 Glucose [Mass/Vol] 160 mg/dL above high threshold 74 - 99 MG-Otolaryngol [facility] Work Phone: Glucose [Mass/Vol] 100 mg/dL above high threshold 74 - 99 [facility]-Otolaryngol [facility] Work Phone: Glucose [Mass/Vol] 69 mg/dL below low threshold 74 - 99 MG-Otolaryngol [facility] Work Phone: Glucose [Mass/Vol] 120 mg/dL above high threshold 74 - 99 [facility]tolaryngol [facility] Work Phone: Laboratory - Hematology and Cell countson 11-12-2021 Erythrocyte distribution width (RBC) [Ratio] 14.4 % See Below [facility]tolaryngol [facility] Work Phone: Comment on above: Reference Range: 11. 5 - 14.5 Hematocrit (Bld) [Volume fraction] 30.4 % below low threshold See Below [facility]-Otolaryngol [facility] Work Phone: Comment on above: Reference Range: [...] [#/Vol] 331 10*3/uL 150 - 450 MG-Otolaryngol [facility] Work Phone: RBC (Bld) [#/Vol] 3.21 {x10E12/L} below low threshold See Below [facility]-Otolaryngol [facility] Work Phone: Comment on above: Reference Range: 4.5 0 - 5.90 WBC (Bld) [#/Vol] 5.9 10*3/uL 4.4 - 11.3 MG-[facility] laryngol [facility] Work Phone: Magnesium, Serumon 2 Magnesium [Mass/Vol] 1.90 mg/dL See Below MG-O tolaryngol [facility] Work Phone: Comment on above: Reference Range: 1.6 0 - 2.40 No Panel Informationon 11-12 0.0 {/100_WBC} 0.0-0.0 MG-Otolary ngol [facility] Work Phone: Renal Function Panelon 11-12 Albumin BCP dye [Mass/Vol] 2.6 g/dL below low threshold 3.4 - 5.0 MG-Otolaryngol [facility] Work Phone: Anion gap [Moles/Vol] 12 mmol/L 10 - 20 MG- Otolaryngol [facility] Work Phone: Calcium [Mass/Vol] 7.6 mg/dL below low threshold 8.6 - 10.6 MG-Otolaryngol [facility] Work Phone: Chloride [Moles/Vol] 101 mmol/L 98 - 107 [facility] tolaryngol [facility] Work Phone: CO2 [Moles/Vol] 26 mmol/L 21 - 32 MG-Otolar yngol ogy-[place] Work Phone: Creatinine [Mass/Vol] 0.27 mg/dL below low threshold See Below [facility]-Otolaryngol [facility] Work Phone: Comment on above: Reference Range: 0.5 0 - 1.30 Glucose [Mass/Vol] 99 mg/dL 74 - 99 MG-[facility] laryngol [facility] Work Phone: Phosphate [Mass/Vol] 2.6 mg/dL 2.5 - 4.9 MG-[facility] tolaryngol [facility] Work Phone: Comment on above: The performance adryan acteristics of phosphorus testing in heparinized plasma have been validated by the individual laboratory site where testing is performed. Testing on heparinized plasma is not approved by the FDA; however, such approval is not necessary. Potassium [Moles/Vol] 4.0 mmol/L 3.5 - 5.3 MG- Otolaryngol [facility] Work Phone: Sodium [Moles/Vol] 135 mmol/L below [...] RACE VARIABLE FOR THE IDMS-TRACEABLE CREATININE METHODS.https://jasn.asnjournals.org/content// ASN.1230781257 Laboratory - Chemistry and C hemistry - challengeon 11-11-2021 Glucose [Mass/Vol] 154 mg/dL above high threshold 74 - 99 MG-Otolaryngol [facility] Work Phone: Glucose [Mass/Vol] 108 mg/dL above high threshold 74 - 99 MG-Otolaryngol [facility] Work Phone: Glucose [Mass/Vol] 140 mg/dL above high threshold 74 - 99 [facility]-Otolaryngol [facility] Work Phone: Glucose [Mass/Vol] 187 mg/dL above high threshold 74 - 99 [facility]-Otolaryngol [facility] Work Phone: Laboratory - Hematology and Cell countson 11-11-2021 Erythrocyte distribution width (RBC) [Ratio] 14.0 % See Below MG-Otolaryngol [facility] Work Phone: Comment on above: Reference Range: 11. 5 - 14.5 Hematocrit (Bld) [Volume fraction] 29.5 % below low threshold See Below [facility]-Otolaryngol [facility] Work Phone: Comment on above: Reference Range: 41. 0 - 52.0 Hemoglobin (Bld) [Mass/Vol] 9.9 g/dL below low threshold See Below [facility]-Otolaryngol [facility] Work Phone: Comment on above: Reference Range: 13. 5 - 17.5 MCHC (RBC) [Mass/Vol] 33.6 g/dL See Below MG- Otolaryngol [facility] Work Phone: Comment on above: Reference Range: 32. 0 - 36.0 MCV (RBC) [Entitic vol] 96 fL 80 - 100 M G-Otolaryngol [facility] Work Phone: Platelets (Bld) [#/Vol] 308 10*3/uL 150 - 450 MG-Otolaryngol [facility] Work Phone: RBC (Bld) [#/Vol] 3.06 {x10E12/L} below low threshold See Below MG-Otolaryngol [facility] Work Phone: Comment on above: Reference Range: 4.5 0 - 5.90 WBC (Bld) [#/Vol] 11.2 10*3/uL 4.4 - 11.3 MG-Ot olaryngol [facility] Work Phone: Magnesium, Serumon Magnesium [Mass/Vol] 1.90 [...] below low threshold 3.4 - 5.0 MG-Otolaryngol [facility] Work Phone: Anion gap [Moles/Vol] 11 mmol/L 10 - 20 MG- Otolaryngol [facility] Work Phone: Calcium [Mass/Vol] 7.5 mg/dL below low threshold 8.6 - 10.6 MG-Otolaryngol [facility] Work Phone: Chloride [Moles/Vol] 98 mmol/L 98 - 107 MG-O tolaryngol [facility] Work Phone: CO2 [Moles/Vol] 28 mmol/L 21 - 32 MG-Otolar yngol ogy[facility] Work Phone: Creatinine [Mass/Vol] 0.20 mg/dL below low threshold See Below MG-Otolaryngol [facility] Work Phone: Comment on above: Reference Range: 0.5 0 - 1.30 Glucose [Mass/Vol] 115 mg/dL above high threshold 74 - 99 MG-Otolaryngol [facility] Work Phone: Phosphate [Mass/Vol] 2.6 mg/dL 2.5 [...] 3.7 mmol/L 3.5 - 5.3 MG- Otolaryngol [facility] Work Phone: Sodium [Moles/Vol] 133 mmol/L below low threshold 136 - 145 MG-Otolaryngol [facility] Work Phone: Urea nitrogen [Mass/Vol] 10 mg/dL 6 - 23 MG-Otolaryngol [facility] Work Phone: Renal Function Panel >90 >90 MG-O tolaryngol [facility] Work Phone: Comment on above: CALCULATIONS OF JORGE MATED GFR ARE PERFORMED USING THE 2020 CKD-EPI STUDY REFIT EQUATION WITHOUT THE RACE VARIABLE FOR THE IDMS-TRACEABLE CREATININE METHODS.https://jasn.asnjournals.org/content// ASN.1732676385 Laboratory - Chemistry and C hemistry - [...] [Mass/Vol] 34.7 g/dL See Below MG- Otolaryngol [facility] Work Phone: Comment on above: Reference Range: 32. 0 - 36.0 MCV (RBC) [Entitic vol] 97 fL 80 - 100 M G-Otolaryngol [employer] Work Phone: Platelets (Bld) [#/Vol] 275 10*3/uL 150 - 450 MG-Otolaryngol [facility] Work Phone: RBC (Bld) [#/Vol] 3.10 {x10E12/L} below low threshold See Below MG-Otolaryngol [facility] Work Phone: Comment on above: Reference Range: 4.5 0 - 5.90 WBC (Bld) [#/Vol] 11.2 10*3/uL 4.4 - 11.3 MG-Ot olaryngol [employer] Work Phone: Magnesium, Serumon Magnesium [Mass/Vol] 1.90 mg/dL See Below MG-O tolaryngol [facility] Work Phone: Comment on above: Reference Range: 1.6 0 - 2.40 No Panel Informationon 11-10 0.0 {/100_WBC} 0.0-0.0 MG-Otolary ngol ogy[facility] Work Phone: Renal Function Panelon 11-10 Albumin BCP dye [Mass/Vol] 2.6 g/dL below low threshold 3.4 - 5.0 MG-Otolaryngol [facility] Work Phone: Anion gap [Moles/Vol] 11 mmol/L 10 - 20 MG- Otolaryngol [facility] Work Phone: Calcium [Mass/Vol] 7.9 mg/dL below low threshold 8.6 - 10.6 MG-Otolaryngol [facility] Work Phone: Chloride [Moles/Vol] 98 mmol/L 98 - 107 MG-O tolaryngol [facility] Work Phone: CO2 [Moles/Vol] 30 mmol/L 21 - 32 MG-Otolar yngol ogy-[place] Work Phone: Creatinine [Mass/Vol] 0.26 mg/dL below low threshold See Below MG-Otolaryngol [facility] Work Phone: Comment on above: Reference Range: 0.5 0 - 1.30 Glucose [Mass/Vol] 134 mg/dL above high threshold 74 - 99 MG-Otolaryngol [facility] Work Phone: Phosphate [Mass/Vol] 3.9 mg/dL 2.5 - 4.9 MG-O tolaryngol [facility] Work Phone: Comment on above: The performance adryan acteristics of phosphorus testing in heparinized plasma have been validated by the individual laboratory site where testing is performed. Testing on heparinized plasma is not approved by the FDA; however, such approval is not necessary. Potassium [Moles/Vol] 4.0 mmol/L 3.5 - 5.3 MG- Otolaryngol ogy[facility] Work Phone: Sodium [Moles/Vol] 135 mmol/L below low threshold 136 - 145 MG-Otolaryngol [facility] Work Phone: Urea nitrogen [Mass/Vol] 7 mg/dL 6 - 23 MG-Otolaryngol [facility] Work Phone: Renal Function Panel >90 >90 MG-O tolaryngol [facility] Work Phone: Comment on above: CALCULATIONS OF JORGE MATED GFR ARE PERFORMED USING THE 2020 CKD-EPI STUDY REFIT EQUATION WITHOUT THE RACE VARIABLE FOR THE IDMS-TRACEABLE CREATININE METHODS.https://jasn.asnjournals.org/content/early/ ASN.7539652736 Laboratory - Chemistry and C hemistry - challengeon 11-09-2021 Glucose [Mass/Vol] 106 mg/dL above high threshold 74 - 99 MG-Otolaryngol [facility] Work Phone: Glucose [Mass/Vol] 149 mg/dL above high threshold 74 - 99 MG-Otolaryngol [facility] Work Phone: Glucose [Mass/Vol] 105 mg/dL above high threshold 74 - 99 MG-Otolaryngol [facility] Work Phone: Laboratory - Hematology and Cell countson 11-09-2021 Erythrocyte distribution width (RBC) [Ratio] 13.9 % See Below MG-Otolaryngol [facility] Work Phone: Comment on above: Reference Range: 11. 5 - 14.5 Hematocrit (Bld) [Volume fraction] 31.8 % below low threshold See Below MG-Otolaryngol [facility] Work Phone: Comment on above: Reference Range: 41. 0 - 52.0 Hemoglobin (Bld) [Mass/Vol] 11.1 g/dL below low threshold See Below MG-Otolaryngol [facility] Work Phone: Comment on above: Reference Range: 13. 5 - 17.5 MCHC (RBC) [Mass/Vol] 34.9 g/dL See Below MG- Otolaryngol ogy[facility] Work Phone: Comment on above: Reference Range: 32. 0 - 36.0 MCV (RBC) [Entitic vol] 94 fL 80 - 100 M G-Otolaryngol [facility] Work Phone: Platelets (Bld) [#/Vol] 276 10*3/uL 150 - 450 MG-Otolaryngol o[facility] Work Phone: RBC (Bld) [#/Vol] 3.38 {x10E12/L} below low threshold See Below MG-Otolaryngol o[facility] Work Phone: Comment on above: Reference Range: 4.5 0 - 5.90 WBC (Bld) [#/Vol] 10.3 10*3/uL 4.4 - 11.3 MG-Ot olaryngol ogy-[place] Work Phone: Magnesium, Serumon Magnesium [Mass/Vol] 1.76 mg/dL See Below MG-O tolaryngol ogy-[place] Work Phone: Comment on above: Reference Range: 1.6 0 - 2.40 No Panel Informationon 11-09 0.0 {/100_WBC} 0.0-0.0 MG-Otolary ngol ogy-[place] Work Phone: Renal Function Panelon 11-09 Albumin BCP dye [Mass/Vol] 2.8 g/dL below low threshold 3.4 - 5.0 MG-Otolaryngol ogy[facility] Work Phone: Anion gap [Moles/Vol] 11 mmol/L 10 - 20 MG- Otolaryngol ogy[facility] Work Phone: Calcium [Mass/Vol] 7.7 mg/dL below low threshold 8.6 - 10.6 MG-Otolaryngol o[facility] Work Phone: Chloride [Moles/Vol] 94 mmol/L below low threshold 98 - 107 MG-Otolaryngol [facility] Work Phone: CO2 [Moles/Vol] 29 mmol/L 21 - 32 MG-Otolar yngol ogy-[place] Work Phone: Creatinine [Mass/Vol] mg/dL See Below MG- Otolaryngol ogy[facility] Work Phone: Comment on above: Reference Range: 0.5 0 - 1.30 Glucose [Mass/Vol] 112 mg/dL above high threshold 74 - 99 MG-Otolaryngol [facility] Work Phone: Phosphate [Mass/Vol] 2.2 mg/dL below low threshold 2.5 - 4.9 MG-Otolaryngol [facility] Work Phone: Comment on above: The performance [...] below low threshold 136 - 145 MG-Otolaryngol [facility] Work Phone: Urea nitrogen [Mass/Vol] 7 mg/dL 6 - 23 MG-Otolaryngol [facility] Work Phone: Renal Function Panel >90 >90 MG-O tolaryngol [facility] Work Phone: Comment on above: CALCULATIONS OF JORGE MATED GFR ARE PERFORMED USING THE 2020 CKD-EPI STUDY REFIT EQUATION WITHOUT THE RACE VARIABLE FOR THE IDMS-TRACEABLE CREATININE METHODS.https://jasn.asnjournals.org/content// ASN.7785576564 Laboratory - Chemistry and C hemistry - challengeon 11-08-2021 Glucose [Mass/Vol] 130 mg/dL above high threshold 74 - 99 MG-Otolaryngol [facility] Work Phone: Glucose [Mass/Vol] 106 mg/dL above high threshold 74 - 99 MG-Otolaryngol [facility] Work Phone: Glucose [Mass/Vol] 122 mg/dL above high threshold 74 - 99 MG-Otolaryngol [facility] Work Phone: Laboratory - Hematology and Cell countson 11-08-2021 Erythrocyte distribution width (RBC) [Ratio] 14.1 % See Below MG-Otolaryngol ogy[facility] Work Phone: Comment on above: Reference Range: 11. 5 - 14.5 Hematocrit (Bld) [Volume fraction] 35.2 % below low threshold See Below MG-Otolaryngol [facility] Work Phone: Comment on above: Reference Range: 41. 0 - 52.0 Hemoglobin (Bld) [Mass/Vol] 12.0 g/dL below low threshold See Below MG-Otolaryngol [facility] Work Phone: Comment on above: Reference Range: 13. 5 - 17.5 MCHC (RBC) [Mass/Vol] 34.1 g/dL See Below MG- Otolaryngol [facility] Work Phone: Comment on above: Reference Range: 32. 0 - 36.0 MCV (RBC) [Entitic vol] 95 fL 80 - 100 M G-Otolaryngol [facility] Work Phone: Platelets (Bld) [#/Vol] 342 10*3/uL 150 - 450 MG-Otolaryngol [facility] Work Phone: RBC (Bld) [#/Vol] 3.71 {x10E12/L} below low threshold See Below MG-Otolaryngol [facility] Work Phone: Comment on above: Reference Range: 4.5 0 - 5.90 WBC (Bld) [#/Vol] 9.5 10*3/uL 4.4 - 11.3 MG-[facility] laryngol o[facility] Work Phone: Magnesium, Serumon 2 Magnesium [Mass/Vol] 1.67 mg/dL See Below MG-O tolaryngol [facility]-[place] Work Phone: Comment on above: Reference Range: 1.6 0 - 2.40 No Panel Informationon 11-08 0.0 {/100_WBC} 0.0-0.0 MG-Otolary ngol ogy-[place] Work Phone: Renal Function Panelon 11-08 Albumin BCP dye [Mass/Vol] 3.6 g/dL 3.4 - 5.0 MG-Otolaryngol [facility] Work Phone: Anion gap [Moles/Vol] 16 mmol/L 10 - 20 MG- Otolaryngol [facility] Work Phone: Calcium [Mass/Vol] 8.3 mg/dL below low threshold 8.6 - 10.6 MG-Otolaryngol [facility] Work Phone: Chloride [Moles/Vol] 93 mmol/L below low threshold 98 - 107 MG-Otolaryngol [facility] Work Phone: CO2 [Moles/Vol] 27 mmol/L 21 - 32 MG-Otolar yngol ogy-[place] Work Phone: Creatinine [Mass/Vol] 0.38 mg/dL below low threshold See Below MG-Otolaryngol [facility] Work Phone: Comment on above: Reference Range: 0.5 0 - 1.30 Glucose [Mass/Vol] 84 mg/dL 74 - 99 MG-Anik[facility] laryngol o[facility] Work Phone: Phosphate [Mass/Vol] 2.8 mg/dL 2.5 - 4.9 MG-O tolaryngol [facility]gy[facility] Work Phone: Comment on above: The performance adryan acteristics of phosphorus testing in heparinized plasma have been validated by the individual laboratory site where testing is performed. Testing on heparinized plasma is not approved by the FDA; however, such approval is not necessary. Potassium [Moles/Vol] 3.9 mmol/L 3.5 - 5.3 MG- Otolaryngol ogy[facility] Work Phone: Sodium [Moles/Vol] 132 mmol/L below low threshold 136 - 145 MG-Otolaryngol [facility] Work Phone: Urea nitrogen [Mass/Vol] 6 mg/dL 6 - 23 MG-Otolaryngol [facility] Work Phone: Renal Function Panel >90 >90 MG-O tolaryngol [facility] Work Phone: Comment on above: CALCULATIONS OF JORGE MATED GFR ARE PERFORMED USING THE 2020 CKD-EPI STUDY REFIT EQUATION WITHOUT THE RACE VARIABLE FOR THE IDMS-TRACEABLE CREATININE METHODS.https://jasn.asnjournals.org/content/early// ASN.5263761678 Laboratory - Blood bankon ABO group Nom (Bld) A MG-Ot olaryngol ogy-[place] [facility] Work Phone: Rh immune globulin screen (Bld) [Interp] Positive MG-Otolary ngol ogy-[place] [facility] Work Phone: Laboratory - Chemistry and C hemistry - challengeon 11-07-2021 Anion gap (Bld) [Moles/Vol] 11 mmol/L 10 - 25 MG-Otolaryngol o[facility]-[place] [facility] Work Phone: Calcium.ionized (Bld) [Moles/Vol] 1.09 mmol/L below low threshold See Below MG-Otol[facility] [facility] Work Phone: Comment on above: Reference Range: 1.1 0 - 1.33 Chloride [Moles/Vol] 96 mmol/L below low threshold 98 - 107 [facility] [facility] Work Phone: CO2 (Bld) [Partial pressure] 38 mm[Hg] 38 - 42 [facility] [facility] Work Phone: Glucose [Mass/Vol] 122 mg/dL above high threshold 74 - 99 [facility] [facility] Work Phone: HCO3 (Bld) [Moles/Vol] 25.8 mmol/L See Below M [facility] [facility] Work Phone: Comment on above: Reference Range: 22. 0 - 26.0 Lactate [Moles/Vol] 0.9 mmol/L 0.4 - 2.0 [facility] ol[facility]ol [facility] [facility] Work Phone: Oxygen (Bld) [Partial pressure] 190 mm[Hg] above high threshold 85 - 95 [facility]ol [facility] [facility] Work Phone: pH (Bld) 7.44 [pH] above high threshold See Below [facility] [facility] Work Phone: Comment on above: Reference Range: 7.3 8 - 7.42 Potassium [Moles/Vol] 3.7 mmol/L 3.5 - 5.3 [facility]- Otolaryngol [facility] [facility] Work Phone: Sodium [Moles/Vol] 129 mmol/L below low threshold 136 - 145 [facility] [facility] Work Phone: Anion gap (Bld) [Moles/Vol] 9 mmol/L below low threshold 10 - 25 [facility] [facility] Work Phone: Calcium.ionized (Bld) [Moles/Vol] 1.08 mmol/L below low threshold See Below [facility] [facility] Work Phone: Comment on above: Reference Range: 1.1 0 - 1.33 Chloride [Moles/Vol] 95 mmol/L below low threshold 98 - 107 [facility] [facility] Work Phone: CO2 (Bld) [Partial pressure] 37 mm[Hg] below low threshold 38 - 42 [facility] [facility] Work Phone: Glucose [Mass/Vol] 109 mg/dL above high threshold 74 - 99 [facility] [facility] Work Phone: HCO3 (Bld) [Moles/Vol] 26.9 mmol/L above hig h threshold See Below [facility] [facility] Work Phone: Comment on above: Reference Range: 22. 0 - 26.0 Lactate [Moles/Vol] 0.6 mmol/L 0.4 - 2.0 MG-Ot olaryngol [facility]-[place] [facility] Work Phone: Oxygen (Bld) [Partial pressure] 209 mm[Hg] above high threshold 85 - 95 [facility] [facility] Work Phone: pH (Bld) 7.47 [pH] above high threshold See Below [facility] [facility] Work Phone: Comment on above: Reference Range: 7.3 8 - 7.42 Potassium [Moles/Vol] 4.0 mmol/L 3.5 - 5.3 [facility]- [facility]ol [facility] [facility] Work Phone: Sodium [Moles/Vol] 127 mmol/L below low threshold 136 - 145 [facility] [facility] Work Phone: Laboratory - Hematology and Cell countson 11-07-2021 Hematocrit (Bld) [Volume fraction] 36.0 % below low threshold See Below [facility] [facility] Work Phone: Comment on above: Reference Range: 41. 0 - 52.0 Hemoglobin (Bld) [Mass/Vol] 12.2 g/dL below low threshold See Below [facility] [facility] Work Phone: Comment on above: Reference Range: 13. 5 - 17.5 Hematocrit (Bld) [Volume fraction] 38.0 % below low threshold See Below [facility] [facility] Work Phone: Comment on above: Reference Range: 41. 0 - 52.0 Hemoglobin (Bld) [Mass/Vol] 12.9 g/dL below low threshold See Below [facility] [facility] Work Phone: Comment on above: Reference Range: 13. 5 - 17.5 No Panel Informationon 11-07 1.7 mmol/L -2.0 - 3.0 [facility] [facility] Work Phone: 100 % 94 - 100 [facility] [facility] Work Phone: 37.0 {degrees_C} MG-Otola ryngol ogy-[place] [facility] Work Phone: Comment on above: NOTE: PATIENT RESULT S ARE NOT CORRECTED FOR TEMPERATURE. 3.2 mmol/L above high threshold -2.0 - 3.0 [facility] [facility] Work Phone: 100 % 94 - 100 [facility] [facility] Work Phone: 37.0 {degrees_C} MG-Otola ryngol ogy-[place] [facility] Work Phone: Comment on above: NOTE: PATIENT RESULT S ARE NOT CORRECTED FOR TEMPERATURE. [facility]tolaryngol [facility]-[place] Work Phone: Coronavirus 2019 RNA by PCR, Screening Asymptomticon 11-06-2021 Coronavirus 2019 RNA by PCR, Screening Asymptomtic Not detected Normal See Below [facility] [facility] Work Phone: Comment on above: SOURCE: [...] make patient management decisions.Fact sheet for providers: https://www.fda.gov/media/397182/downloadFact sheet for patients: https://www.fda.gov/media/014863/downloadThis test has received FDA Emergency Use Authorization (EUA) and has been verified by [facility] ([facility]). This test is only authorized for the duration of time that circumstances exist to justify the authorization of the emergency use of in vitro diagnostic tests for the detection of SARS-CoV-2 virus and/or diagnosis of COVID-19 infection under section 564(b)(1) of the Act, 21 U.S.C. 360bbb-3(b)(1), unless the authorization is terminated or revoked sooner. [facility] is certified under CLIA-88 as qualified to perform high complexity testing. Testing is performed in the [facility] laboratories located at [address] [place] [address]. Laboratory - Coagulationon 0 11-02-2021 aPTT Coag (PPP) [Time] 35 s 26 - 39 [facility] -[facility]tolaryngol [facility]-[place] Work Phone: Comment on above: Note new reference facundo mccallum as of 08/22/2021 at 10:00am. INR Coag (PPP) [Relative time] 1.0 {INR} 0.9 - 1.1 [facility] Work Phone: PT Coag (PPP) [Time] 11.5 s 9.8 - 13.4 [facility]-O tolaryngol ogy-[place] Work Phone: Comment on above: Note new reference facundo mccallum as of 08/22/2021 at 10:00am. Tobacco Screening.on 022 Fall risk assessment a) No falls within the last year [facility] Work [facility]: Tobacco use status [facility] b) No [facility]: CT Neck with Contraston CT Neck W contrast IV Please click on e link to view the study images Normal [facility]iol [facility] Work Phone: CT Neck W contrast IV Normal MG- Otolaryngol ogy-[facility] [place] [facility] Work Phone: CTA ABD Aorta With Bilat Tamar ofem Extr Runoff w/wo Cont Post Procon 10-31-2021 CTA ABD Aorta With Bilat Iliofem Extr Runoff w/wo Cont Post Proc Please click on the link to view the study images Normal [facility] Work Phone: CTA ABD Aorta With Bilat Iliofem Extr Runoff w/wo Cont Post Proc Normal [facility]-Otolaryngol o[facility] [place] [facility] Work Phone: Complete Blood Count + [...] facundo mccallum as of 08/22/2021 at 10:00am. INR Coag (PPP) [Relative time] Canceled [facility]iol [facility] Work Phone: PT Coag (PPP) [Time] Canceled MG-A nesthesiol ogy-[facility] Work Phone: Comment on above: Note new reference facundo mccallum as of 08/22/2021 at 10:00am. MRSA Screenon 10-31-2021 Staphylococcus sp identified Org specific cx Nom (Unsp spec) Abnormal [facility]-Otolaryngo l [facility] Work Phone: No Panel Informationon 10-31 >90 >90 [facility] Work Phone: Comment on above: CALCULATIONS OF JORGE MATED GFR ARE PERFORMED USING THE 2020 CKD-EPI STUDY REFIT EQUATION WITHOUT THE RACE VARIABLE FOR THE IDMS-TRACEABLE CREATININE METHODS.https://jasn.asnjournals.org/content// ASN.3238089278 http://UHMUSEPRDAIO0 1:8 080/musescripts/museweb .dll?RetrieveTestByDate Time?VxpfybbSE=[id number] 2&Date=04-24-2022&Time= 14%3a18%3a57%3a00&TestT ype=ECG&Site=1&OutputTy pe=PDF&Ext=PDF [facility] Work Phone: Normal sinus rhythm MG-Ot olaryngol ogy-[place] Work Phone: Borderline Abnormal MG-Ot olaryngol [facility]-[place] Work Phone: 403 1 [facility] Work Phone: 391 1 [facility] Work Phone: 190 1 [facility] Work Phone: 139 1 [facility] Work Phone: 214 1 [facility] Work Phone: 15 1 [facility] Work Phone: 58 1 [facility] Work Phone: 92 1 [facility] Work Phone: 81 1 [facility] Work Phone: 430 1 [facility] Work Phone: 354 1 [facility] Work Phone: 88 1 [facility] Work Phone: 150 1 [facility] Work Phone: 89 1 [facility] Work Phone: Radiologyon 10-31-2021 XR Chest 2 Views Normal MG-Anest hesiol [facility]gy-[facility] Work Phone: TSH - Thyroid Stimulating Ho rmone, Serumon 10-31-2021 TSH Qn 20.51 m[IU]/L above high threshold See Below [facility]-Anesthesiol [facility] Work Phone: Comment on above: Reference Range: 0.4 4 - 3.98 TSH testing is performed using different testing methodology at [facility] than at other [facility] hospitals. Direct result comparisons should only be made within the same method. Blood Urea Nitrogen, Serumon 10-25-2021 Urea nitrogen [Mass/Vol] 8 mg/dL 6 - 23 [facility]ol [facility] [place] [facility] Work Phone: Creatinine, Serumon 10-25-19 Creatinine [Mass/Vol] 0.36 mg/dL below low threshold See Below [facility]tolaryngol [facility] [place] [facility] Work Phone: Comment on above: Reference Range: 0.5 0 - 1.30 Creatinine, Serum >90 >90 MG-Otol aryngol ogy-[facility] [place] [facility] Work Phone: Comment on above: CALCULATIONS OF JORGE MATED GFR ARE PERFORMED USING THE 2020 CKD-EPI STUDY REFIT EQUATION WITHOUT THE RACE VARIABLE FOR THE IDMS-TRACEABLE CREATININE METHODS.https://jasn.asnjournals.org/content// ASN.6758161735 Tobacco Screening.on 022 Fall risk assessment a) No falls within the last year [facility] Work Phone: Tobacco use status [facility] a) Yes M P-Otol[facility]ol [facility] Work Phone: Tobacco Screening. Yes MP-Aniket laryngol ogy-[place] Work Phone: CNPIrina 10-03-2021 CNPN Telephone (OTOLMM) MY JAMA ([id number]) 1960 M Date Time Provider Department 10/03/21 [...] to stop his hyperbaric oxygen therapy. ENT production control scheduler was messaged and will call the patient tomorrow. They had no further questions. MD Marcell Shanks 10/04/2021 8:48 AM Signed Lul, A nurse from [employer] named Georgina called in this morning to [...] Rachel Brooks; ENT. Her telephone number is [phone] (Pat) Just letting you guys know FOR Records Purposes: (PT wants us to fax them info) Their fax is [phone] I will fax what is needed. 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 They are asking for OV notes, path results. Please fax to them at [phone]. Siobhan Eli Pss 10/05/2021 2:15 PM Signed [...] Encounter Status:Closed by LAURITA MABRY on 10/03/21 [facility] CNCorwin 10-02-2021 CNOV Office Visit (OTOLMM ) MY JAMA ([id number]) 1960 M Date Time Provider Department 10/02/21 3:00 PM JESIKA PICHARDO OTOLMM During your visit today, we recorded [...] electronic medical record. Referring Provider: JESIKA PICHARDO [[id number]] Allergies As of Date: 10/02/2021 (No Known [...] Encounter Status:Closed by JESIKA PICHARDO on 10/02/21 [facility] CNOVon 09-28-2021 CNOV Office Visit (OTOLMM ) MY JAMA ([id number]) 1960 M Date Time Provider Department 09/28/21 [...] waiting adequat (more content not included)... Normal [facility] SURGICAL PATHOLOGYon 022 SURGICAL PATHOLOGY Specimen originated from [facility] Specimen #: [id number] Submitting Physician: LAURITA MABRY FINAL DIAGNOSIS Gingiva, [...] in-situ hybridization tests have been determined by [facility]'s [facility] Pathology and Laboratory Medicine [place] [facility]) in a manner consistent with CLIA requirements. One or more of these tests have not been cleared or approved by the FDA. [facility] is regulated under CLIA as qualified to [...] A1. JOAO/vic 09/29/2021 Gross examination performed at [facility] [place] [address] Date of Report: 10/03/2021 Date of Procedure: 09/28/2021 Date of Receipt: 09/29/2021 Submitted by: LAURITA MABRY Location: OTOL Diagnostic interpretation performed at [facility], [facility] [place] [address]. CLIA Number: [id number] Normal [facility] Urinalysis, Office ([id number])on 08-15-2021 Bilirubin Ql (U) Negative Normal Comprehe [...] (U) Negative Normal Comprehens sruthi Internal Medicine; [facility] Internal Medicine Work Phone: pH (U) 7 [...] Medicine Work Phone: Metabolic Panel, Comprehensi ve ([id number])Ordered By: Public Services Assistant on 07-26-2021 Albumin [Mass/Vol] 4.3 g/dL Normal 3.8-4.9 [facility]; [facility] Work Phone: Comment on above: PATIENT NOT FASTINGP ERFORMED BY: Eye-Q6370 [employer]formerly [facility] [id number] Albumin/Globulin [Mass ratio] 1.4 {ratio} Normal 1.2-2.2 [facility]; [facility] Work Phone: Comment on above: PATIENT NOT FASTINGP ERFORMED BY: Eye-[id number] [employer] Holdingsformerly [facility] [id number] ALP [Catalytic activity/Vol] 115 U/L Normal 44-121 [facility]; [facility] Work Phone: Comment on above: Please note refere nce interval change PATIENT NOT FASTINGP ERFORMED BY: CB [facility] [id number] Dick RoadDublin [place] [id number] ALT [Catalytic activity/Vol] 12 U/L Normal 0-44 [facility]; [facility] Work Phone: Comment on above: PATIENT NOT FASTINGP ERFORMED BY: CB [facility] [id number] Dick RoadDublin [place] [id number] AST [Catalytic activity/Vol] 19 U/L Normal 0-40 [facility]; [facility] Work Phone: Comment on above: PATIENT NOT FASTINGP ERFORMED BY: CB [facility] [id number] Dick RoadDublin [place] [id number] Bilirubin [Mass/Vol] 0.2 mg/dL Normal 0.0-1.2 Comp rehensive Internal Medicine; [facility] Work Phone: Comment on above: PATIENT NOT FASTINGP ERFORMED BY: CB [facility] [id number] Dick RoadDublin [place] [id number] Calcium [Mass/Vol] 9.4 mg/dL Normal 8.7-10.2 [facility] Internal [facility]; [facility] Work Phone: Comment on above: PATIENT NOT FASTINGP ERFORMED BY: CB [facility] [id number] Dick RoadDublin [place] [id number] Chloride [Moles/Vol] 86 mmol/L Abnormal 96-106 Comp rehensive Internal Medicine; [facility] Work Phone: Comment on above: PATIENT NOT FASTINGP ERFORMED BY: CB [facility] [id number] [address] RoadDublin [place] [id number] CO2 [Moles/Vol] 24 mmol/L Normal 20-29 Comprehen [facility] Internal Medicine; [facility] Work Phone: Comment on above: PATIENT NOT FASTINGP ERFORMED BY: CB [facility] [id number] Dick RoadDublin [place] [id number] Creatinine [Mass/Vol] 0.53 mg/dL Abnormal 0.76-1.27 [facility] prehensive Internal Medicine; [facility] Work Phone: Comment on above: PATIENT NOT FASTINGP ERFORMED BY: SAGRARIO Cuevas[address] [place] [id number] GFR/1.73 sq M.predicted among blacks CKD-EPI (S/P/Bld) [...] NOT FASTINGP ERFORMED BY: SAGRARIO Cuevas6370 Kap[address] Uribeformerly [facility] [id number] GFR/1.73 sq M.predicted among non-blacks CKD-EPI (S/P/Bld) [Vol rate/Area] 116 mL/min/1.73 Normal [facility]; [facility] Work Phone: Comment on above: PATIENT NOT FASTINGP ERFORMED BY: SAGRARIO Cuevas6[address] DarwinKind[facility] [id number] Globulin (S) [Mass/Vol] 3.1 g/dL Normal 1.5-4.5 [facility]; [facility] Work Phone: Comment on above: PATIENT NOT FASTINGP ERFORMED BY: SAGRARIO Cuevas6370 [facility] [id number] Glucose [Mass/Vol] 108 mg/dL Abnormal 65-99 [facility] Internal [facility]; [facility] Work Phone: Comment on above: PATIENT NOT FASTINGP ERFORMED BY: SAGRARIO Cuevas6370 DickColumb[facility] Hospital [id number] Potassium [Moles/Vol] 4.5 mmol/L Normal 3.5-5.2 [facility] prehensive Internal Medicine; [facility] Work Phone: Comment on above: PATIENT NOT FASTINGP ERFORMED BY: SAGRARIO Gomezlin6[address] RoadDublin [place] [id number] Protein [Mass/Vol] 7.4 g/dL Normal 6.0-8.5 [facility] Internal Medicine; [facility] Work Phone: Comment on above: PATIENT NOT FASTINGP ERFORMED BY: SAGRARIO [facility] [id number] [address] RoadDublin [place] [id number] Sodium [Moles/Vol] 125 mmol/L Abnormal 134-144 [facility] Internal Medicine; [facility] Work Phone: Comment on above: PATIENT NOT FASTINGP ERFORMED BY: SAGRARIO [facility] [id number] Dick RoadDublin [place] [id number] Urea nitrogen [Mass/Vol] 7 mg/dL Normal 6-24 [facility]; [facility] Work Phone: Comment on above: PATIENT NOT FASTINGP ERFORMED BY: SAGRARIO LabLouisa GomezLpicfq6179 [address] RoadDublin [place] [id number] Urea nitrogen/Creatinine [Mass ratio] 13 mg/mg Normal 9-20 [facility]; [facility] Work Phone: Comment on above: PATIENT NOT FASTINGP ERFORMED BY: SAGRARIO LabLouisa [id number] [address] RoadDublin [place] [id number] TSH (THYROID STIMULATING HOR NIK) ([id number])Ordered By: Public Services Assistant on 07-26-2021 TSH Qn 34.100 {uIU/mL} Abnormal 0.450-4.50 0 [facility]; [facility] Work Phone: Comment on above: PATIENT NOT FASTINGP ERFORMED BY: SAGRARIO [facility] [id number] Dick RoadDublin [place] [id number] VITAMIN B12 AND FOLATES (826 [id number])Ordered By: Public Services Assistant on 07-26-2021 Cobalamin (Vitamin B12) [Mass/Vol] 627 pg/mL Normal 232-1245 [facility]; [facility] Work Phone: Comment on above: PATIENT NOT FASTINGP ERFORMED BY: SAGRARIO LabCoshelia GomezMtxllt8[address] RoadDublin [place] [id number] Folate [Mass/Vol] 3.1 ng/mL Normal Compreh ensive Internal Medicine; [facility] Work Phone: Comment on above: A serum folate jan ntration of less than 3.1 ng/mL isconsidered to represent clinical deficiency. PATIENT NOT FASTINGP ERFORMED BY: [facility] [id number] Dick ozukeKindred Hospital [facility] [id number] TSH (THYROID STIMULATING HOR NIK) ([id number])Ordered By: Public Services Assistant on 11-28-2020 TSH Qn 18.000 {uIU/mL} Abnormal 0.450-4.50 0 [facility]; [facility] Work Phone: Comment on above: Oct 06 2020; PATIENT NOT FASTINGPERFORMED BY: [facility] [id number] [facility] [id number] Absolute lymphocyte counton 08-25-2020 Lymphocytes Auto (Unsp spec) [#/Vol] 1.03 10*3/uL 0.83-4.51 [facility] Work Phone: Basophil percentageon 2019 Bilirubin [Mass/Vol] 0.40 mg/dL 0.20-1.00 [facility] Work Phone: Comment on above: For patients on eltr ombopag therapy, use of Dimension [place] TBIL is not recommended. Chloride [Moles/Vol] 91 mmol/L 98-107 [facility] Work Phone: Eosinophils/100 WBC (Bld) 1.5 % 0-5 [facility] Work Phone: Glucose [Mass/Vol] 94 mg/dL 74-106 [facility] Work Phone: Comment on above: Please note revised GLUCOSE reference range effective 2017. Neutrophils (Bld) [#/Vol] 3.5 10*3/uL 2.0-7.7 [facility] Work Phone: Potassium [Moles/Vol] 4.0 mmol/L 3.5-5.1 [facility] Work Phone: Protein [Mass/Vol] 7.7 g/dL 6.4-8.2 [facility] Work Phone: Sodium [Moles/Vol] 127 mmol/L 136-145 [facility] Work Phone: WBC (Bld) [#/Vol] 5.4 10*3/uL 4.4-11.0 [facility] Work Phone: Blood erythrocytes count (nu mber/volume)on 08-25-2020 RBC (Bld) [#/Vol] 3.99 10*6/uL 4.6-6.2 [facility] Work Phone: Blood hemoglobin measurement (mass/volume)on 08-25-2020 Hemoglobin (Bld) [Mass/Vol] 13.1 g/dL 13.0-16.5 [facility] Work Phone: Blood lymphocytes/100 leukoc yteson 08-25-2020 Lymphocytes/100 WBC (Bld) 19.1 % 19-41 [facility] Work Phone: Blood monocytes/100 leukocyt eson 08-25-2020 Monocytes/100 WBC (Bld) 13.9 % 0-10 [facility] Work Phone: Blood platelet mean volumeon 08-25-2020 Platelet mean volume (Bld) [Entitic vol] 8.6 fL 6.2-12.0 [facility] Work Phone: Determination of erythrocyte mean corpuscular volume (MCV)on 08-25-2020 MCV (RBC) [Entitic vol] 92.7 fL 80-94 [facility] Work Phone: Hematocrit Auto (Bld) [Volum e fraction]on 08-25-2020 Hematocrit (Bld) [Volume fraction] 37.0 % 40-54 [facility] Work Phone: Laboratory - Chemistry and C hemistry - challengeon 08-25-2020 ALP [Catalytic activity/Vol] 112 U/L 45-117 [facility] Work Phone: ALT [Catalytic activity/Vol] 64 U/L 16-61 [facility] Work Phone: CO2 [Moles/Vol] 31.0 mmol/L 21.0-32.0 [facility] Work Phone: Globulin (S) [Mass/Vol] 4.0 g/dL 2.2-4.2 [facility] Work Phone: Urea nitrogen/Creatinine [Mass ratio] 24.4 mg/mg 10-20 [facility] Work Phone: Laboratory - Hematology and Cell countson 08-25-2020 Basophils/100 WBC (Unsp spec) 0.7 % 0-1 [facility] Work Phone: Erythrocyte distribution width (RBC) [Entitic vol] 44.8 fL 35.1-43.9 [facility] Work Phone: Erythrocyte distribution width (RBC) [Ratio] 13.1 % 11.6-14.6 [facility] Work Phone: Immature granulocytes/100 WBC (Bld) 0.600 % 0.0-0.9 [facility] Work Phone: Comment on above: IG% - Immature Granu locytes (promyelocytes, myelocytes and metamyelocytes) > 1% indicates that a LEFT SHIFT is Present. MCH (RBC) [Entitic mass] 32.8 pg 27.0-32.0 [facility] Work Phone: Neutrophils/100 WBC (Bld) 64.2 % 47-70 [facility] Work Phone: Nucleated RBC/100 WBC (Bld) [Ratio] 0 % 0-5 [facility] Work Phone: MCHC Auto (RBC) [Mass/Vol]on 08-25-2020 MCHC (RBC) [Mass/Vol] 35.4 g/dL 32-36 [facility] Work Phone: No Panel Informationon 08-25 Estimated Creatinine Clearance Calc 146.22 ml/min [facility] Work Phone: Estimated GFR (MDRD) Amer 247 mL/min >60 [facility] Work Phone: Comment on above: GFR Calc Estimated GFR (MDRD) Non-Af Amer 204 mL/min >60 [facility] Work Phone: Comment on above: Non- GFR Calc Thyroid Stimulating Hormone (TSH) 11.50 uIU/mL 0.358-3.74 [facility] Work Phone: Platelets bldon 08-25-2020 Platelets (Bld) [#/Vol] 272 10*3/uL 150-450 [facility] Work Phone: Serum or plasma albumin yesi urement (mass/volume)on 08-25-2020 Albumin [Mass/Vol] 3.7 g/dL 3.2-5.0 [facility] Work Phone: Serum or plasma albumin/glob ulin mass ratioon 08-25-2020 Albumin/Globulin [Mass ratio] 0.9 {ratio} 0.9-2.4 [facility] Work Phone: Serum or plasma calcium yesi urement (mass/volume)on 08-25-2020 Calcium [Mass/Vol] 9.2 mg/dL 8.5-10.1 [facility] Work Phone: Serum or plasma creatinine m easurement (mass/volume)on 08-25-2020 Creatinine [Mass/Vol] 0.45 mg/dL 0.70-1.30 [facility] Work Phone: Comment on above: The validity of the calculated GFR & GFRAA in patients over 70 years has not been determined. Clinical correlation is essential. Serum or plasma urea nitroge n measurement (mass/volume)on 08-25-2020 Urea nitrogen [Mass/Vol] 11 mg/dL 7-18 [facility] Work Phone: Thin prep Papanicolaou smear with manual screeningon 08-25-2020 Thin prep Papanicolaou smear with manual screening 67 U/L 15-37 [facility] Work Phone: Thin prep Papanicolaou smear with manual screening 5 5-15 [facility] Work Phone: TSH (THYROID STIMULATING HOR NIK) ([id number])Ordered By: Public Services Assistant on 08-15-2020 TSH Qn 20.900 {uIU/mL} Abnormal 0.450-4.50 0 [facility]; [facility] Work Phone: Comment on above: Aug 10; PATIENT NOT FASTINGPERFORMED BY: SAGRARIO [facility] [facility] [id number] [facility] Hospitalbl[facility] [place] [id number] TSH (THYROID STIMULATING HOR NIK) ([id number])Ordered By: Public Services Assistant on 06-23-2020 TSH Qn 42.700 {uIU/mL} Abnormal 0.450-4.50 0 [facility] Work Phone: Comment on above: PATIENT NOT FASTINGP ERFORMED BY: SAGRARIO [facility]B[employer] [facility] [id number] Dick ozukeKindred Hospital [facility] [id number] Anti TPO Antibody ([id number])Ord ered By: Public Services Assistant on 05-16-2020 TPO Ab Qn 17 {IU/mL} Normal 0-34 [facility] Work Phone: Comment on above: PATIENT NOT FASTINGP ERFORMED BY: SAGRARIO [facility] [id number] Idck [facility] [place] [id number] TPO Ab Qn 17 [IU]/mL Normal 0-34 [facility]; [facility] Work Phone: Comment on above: PATIENT NOT FASTINGP ERFORMED BY: [employer] Xkclke9486 Dick [facility] [id number] T3, FREE (TRIDOTHYRONINE) ([id number])Ordered By: Public Services Assistant on 05-16-2020 Free T3 [Mass/Vol] 2.6 pg/mL Normal 2.0-4.4 [facility] Internal Medicine Work Phone: Comment on above: to be done 6weeks ( end april); PATIENT NOT FASTINGPERFORMED BY: SAGRARIO [facility] Xfrrxs7343 Dick [facility] [place] [id number] T4, FREE (THYROXINE) ([id number]) Ordered By: Public Services Assistant on 05-16-2020 Free T4 [Mass/Vol] 1.13 ng/dL Normal 0.82-1.77 [facility] Work Phone: Comment on above: to be done 6weeks ( end april ); PATIENT NOT FASTINGPERFORMED BY: [facility]CoSt. [facility] Regional Medical CenterQaciwj5514 [facility] [id number] TSH ([id number])Ordered By: Brooke carpio [employer] Secretary on 05-16-2020 TSH Qn 27.800 {uIU/mL} Abnormal 0.450-4.50 0 [facility] Work Phone: Comment on above: to be done 6 weeks ( end april); PATIENT NOT FASTINGPERFORMED BY: [facility] Kgsedg0606 [facility] [id number] Iron measurement (mass/mass) on 05-19-2019 Iron (Unsp spec) [Mass/Mass] 56 ug/dL 65-175 [facility] Work Phone: Laboratory - Chemistry and C hemistry - challengeon 05-19-2019 Cobalamin (Vitamin B12) [Mass/Vol] 697 pg/mL 211-911 [facility] Free T4 [Mass/Vol] 1.04 ng/dL 0.76-1.46 [facility] No Panel Informationon 05-19 Folate 23.40 ng/mL 3.1-55.4 [facility] Total Iron Binding Capacity 325 ug/dL 250-450 [facility] Work Phone: Serum or plasma ferritin davey surement (mass/volume)on 05-19-2019 Ferritin [Mass/Vol] 559 ng/mL 26-388 [facility] Work Phone: Serum or plasma iron saturat ion measurement (mass fraction)on 05-19-2019 Iron saturation [Mass fraction] 17.2 % 15.0-55.0 [facility] Work Phone: Basophil percentageon 2018 Basophil percentage 4.4 mg/dL 2.5-4.9 [facility] Work Phone: Laboratory - Chemistry and C hemistry - challengeon 04-28-2019 Magnesium [Mass/Vol] 1.8 mg/dL 1.6-2.6 [facility] Work Phone: Absolute reticulocyte counto n 04-13-2019 Reticulocytes (Bld) [#/Vol] 0.00 10*3/uL 0-5 [facility] Laboratory - Hematology and Cell countson 04-06-2019 Erythrocyte distribution width (RBC) [Ratio] 13.2 % 11.6-14.6 [facility] No Panel Informationon 04-06 Red Cell Distribution Width Diff 42.8 fl 35.1-43.9 [facility] Review by pathologiston 03-23 Pathologist review Allen (Unsp spec) [Interp] Reviewed [facility] Comment on above: Previous reported re sult: Camille srinivasan Edited by: KAREN on 04/07/19:1024Leukopenia and neutropenia.Normocytic anemia.Clinical correlation necessary.Laurent Cope M.D. 04/07/19 AMENDED REPORT 04/07/19 1024 PATH REV previously reported as: Camille srinivasan Total cell counton 9 Cells counted Molgen (Bld/Tiss) [#] Not Reportable [facility] Laboratory - Microbiology an d Antimicrobial susceptibilityon 04-05-2019 Bacteria identified Cx Nom (Bld) No growth in 5 days. [facility] Bacteria identified Cx Nom (Bld) No growth in 5 days. [facility] Laboratory - Microbiology an d Antimicrobial susceptibilityon 03-31-2019 Bacteria identified Cx Nom (Bld) No growth in 5 days. [facility] Work Phone: No Panel Informationon 03-30 Differential Comment COMMENT [facility] Comment on above: SLIDE SCANNED - LYMP HOPENIA. AMMONIA ([id number])on 01-02-2019 Ammonia mass conc (P) 20 ug/dL Abnormal 27-102 Com [facility]hens[facility] Work Phone: Comment on above: PATIENT NOT FASTINGP ERFORMED BY: SAGRARIO [facility] Pmptgx9470 [facility] [id number] Metabolic Panel, Comprehensi ve (50069)on 01-02-2019 Albumin mass conc 4.4 g/dL Normal 3.5-5.5 Compreh ensive Internal Medicine Work Phone: Comment on above: PATIENT NOT FASTINGP ERFORMED BY: SAGRARIO [facility] Kierik7686 Dick RoadDublin [place] [id number] Albumin/Globulin mass ratio 1.6 {ratio} Normal 1.2-2.2 [facility] Work Phone: Comment on above: PATIENT NOT FASTINGP ERFORMED BY: CB [facility] Herjtm7510 Dick RoadDublin [place] [id number] ALP enzyme act/vol 60 [iU]/L Normal 39-117 [facility] Internal Medicine Work Phone: Comment on above: PATIENT NOT FASTINGP ERFORMED BY: CB [facility] Ntsrtn1677 Dick RoadDublin [place] [id number] ALT enzyme act/vol 21 [iU]/L Normal 0-44 [facility] Work Phone: Comment on above: PATIENT NOT FASTINGP ERFORMED BY: CB [facility] Lrcymb7197 Dick RoadDublin [place] [id number] AST enzyme act/vol 21 [iU]/L Normal 0-40 [facility] Internal Medicine Work Phone: Comment on above: PATIENT NOT FASTINGP ERFORMED BY: SAGRARIO [facility] Ynmxvg3325 Dick RoadDublin [place] [id number] Bilirubin mass conc 0.5 mg/dL Normal 0.0-1.2 [facility] Internal Medicine Work Phone: Comment on above: PATIENT NOT FASTINGP ERFORMED BY: CB [facility] Vajtrq8660 Dick RoadDublin [place] [id number] Calcium mass conc 9.0 mg/dL Normal 8.7-10.2 [facility] Internal Medicine Work Phone: Comment on above: PATIENT NOT FASTINGP ERFORMED BY: CB [facility] Iwgfvh1701 Dick RoadDublin [place] [id number] Chloride molar conc 92 mmol/L Abnormal 96-106 Compr [facility] Internal Medicine Work Phone: Comment on above: PATIENT NOT FASTINGP ERFORMED BY: CB [facility] Nlrbza1394 Dick RoadDublin [place] [id number] CO2 molar conc 22 mmol/L Normal 20-29 Comprehens sruthi Internal Medicine Work Phone: Comment on above: PATIENT NOT FASTINGP ERFORMED BY: SAGRARIO Cuevas6370 [facility] [id number] Creatinine mass conc 0.56 mg/dL Abnormal 0.76-1.27 Comp rehensive [facility] Work Phone: Comment on above: PATIENT NOT FASTINGP ERFORMED BY: SAGRARIO Andi Gomezlin6370 [facility] [id number] GFR/1.73 sq M predicted among blacks CKD-EPI vol rate/area (S/P/Bld) 134 mL/min/1.73 Normal Comprehe nsive Internal Medicine Work Phone: Comment on above: PATIENT NOT FASTINGP ERFORMED BY: SAGRARIO Nishant Iyfcvj1571 [facility] [id number] GFR/1.73 sq M predicted among non-blacks CKD-EPI vol rate/area (S/P/Bld) 116 mL/min/1.73 Normal [facility] Work Phone: Comment on above: PATIENT NOT FASTINGP ERFORMED BY: SAGRARIO Andi Cuevas6370 [facility] [id number] Globulin mass conc (S) 2.8 g/dL Normal 1.5-4.5 Co mprehensive Internal Medicine Work Phone: Comment on above: PATIENT NOT FASTINGP ERFORMED BY: SAGRARIO LabCoshelia GomezDbuodm5487 [facility] [id number] Glucose mass conc 101 mg/dL Abnormal 65-99 Compreh ensive Internal Medicine Work Phone: Comment on above: PATIENT NOT FASTINGP ERFORMED BY: SAGRARIO [facility] Mnaclo5493 [facility] [id number] Potassium molar conc 4.6 mmol/L Normal 3.5-5.2 Comp rehensive Internal Medicine Work Phone: Comment on above: PATIENT NOT FASTINGP ERFORMED BY: SAGRARIO [facility] Jddcbd2177 [facility] [id number] Protein mass conc 7.2 g/dL Normal 6.0-8.5 Compreh ensive Internal Medicine Work Phone: Comment on above: PATIENT NOT FASTINGP ERFORMED BY: SAGRARIO LabCoshelia GomezVlmiwf0167 Dick RoadDublin [place] [id number] Sodium molar conc 129 mmol/L Abnormal 134-144 Compreh ensive Internal Medicine Work Phone: Comment on above: PATIENT NOT FASTINGP ERFORMED BY: SAGRARIO [facility] Myycto0257 Dick RoadDublin [place] [id number] Urea nitrogen mass conc 6 mg/dL Normal 6-24 C omprehensive Internal Medicine Work Phone: Comment on above: PATIENT NOT FASTINGP ERFORMED BY: SAGRARIO LabCoshelia GomezMkpfws1963 [address] RoadDublin [place] [id number] Urea nitrogen/Creatinine mass ratio 11 mg/mg Normal 9-20 [facility] Work Phone: Comment on above: PATIENT NOT FASTINGP ERFORMED BY: SAGRARIO [facility] Mfcywr7022 [address] RoadDublin [place] [id number] Metabolic Panel, Comprehensi ve (83201)Ordered By: Public Services Assistant on 01-02-2019 ALP [Catalytic activity/Vol] 60 U/L Normal 39-117 [facility]; [facility] Work Phone: Comment on above: PATIENT NOT FASTINGP ERFORMED BY: SAGRARIO [facility] Tmuybz3859 [address] RoadDublin [place] [id number] ALT [Catalytic activity/Vol] 21 U/L Normal 0-44 [facility]; [facility] Work Phone: Comment on above: PATIENT NOT FASTINGP ERFORMED BY: CB [facility] Wimmjq0142 [address] RoadDublin [place] [id number] AST [Catalytic activity/Vol] 21 U/L Normal 0-40 [facility]; [facility] Work Phone: Comment on above: PATIENT NOT FASTINGP ERFORMED BY: SAGRARIO [facility] Yrbxja4384 [address] RoadDublin [place] [id number] VITAMIN B12 AND FOLATES (826 07)on 01-02-2019 Cobalamin (Vitamin B12) mass conc 348 pg/mL Normal 232-1245 [facility] Work Phone: Comment on above: PATIENT NOT FASTINGP ERFORMED BY: [facility] Iovxxc4892 [address] [place] [id number] Folate mass conc 7.9 ng/mL Normal Comprehe nsive Internal Medicine Work Phone: Comment on above: A serum folate jan ntration of less than 3.1 ng/mL isconsidered to represent clinical deficiency. PATIENT NOT FASTINGP ERFORMED BY: [facility] Okoevg5414 Dcik RoadDublin [place] [id number] IMMUNOHISTOCHEMISTRYon 12-22 IMMUNOHISTOCHEMISTRY See Note Normal Comp rehensive Internal Medicine Work Phone: Comment on above: Patient: DEANNE JAMA : 1960 (58/M) Acct Num: [id number] Phys: Shane Gibson MD Unit Num: [id number] Loc: LABSPEC Specimen: [id number] Received: 12/23/181136 Spec Type: IMMUNO TISSUES 1 TISSUES: A. Neck, NOS SPECIMEN INFORMATION: Tissue Source: A - Left neck mass fine needle aspiration Clinical Info: Left neck mass Specimen Number: [id number] CPT code: 30546, 53881 x11 METHODOLOGY: Deparaffinized sections of prefer/formalin-fixed tissue or PAP/DQ stained slides are incubated with monoclonal/polyclonal antibodies/oligonucleotide probes. Localization is made via biotin free immunoperoxidase method. Appropriate controls are performed and reacted as expected. Results on target cell population are indicated in the following table: RESULTS: ANTIBODY / CLONE RESULT Block A AE1-3 (AE1/AE3/PCK26) positive CK7 (OV-TL12/30) negative CK8 (52btepM53) positive, weak CK20 (KS20.8) negative TTF-1 (8G7G3/1) negative Napsin A (Rabbit Polyclonal) negative HepPar (OCh1E5) negative RCC (PN-15) negative PSAP (PASE/4LJ) negative CK5-6 (D5 AND 1684) positive P16 (E6H4) negative P40 (BC28) positive, focal These tests were developed and their performance characteristics determined by [facility]. They may not have been cleared or approved by the U.S. Food and Drug Administration. The FDA has determined that such clearance or approval is not necessary. INTERPRETATION: A. 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 SJ:evy 12/24/18 PHYSICIAN AND INSTITUTION [facility] [address] [place], [place] [address] Signed Laurent Cope MD 12/24/18 [facility] [address] [place], [address] Patient: DEANNE JAMA : 1960 (58/M) Acct Num: [id number] Phys: Paige QUESADA,Shane Unit Num: [id number] Loc: LABSPEC Specimen: [id number] Received: 12/22/18 - 1254 Spec Type: Fluid TISSUES 1 TISSUES: A. Neck, NOS B. Neck, NOS COMMENT A. Immunohistochemistry ([id number]) supports the above diagnosis. Case has been [...] Submitted for staining. / 12/22/18 TC:0 CPT: 38421, 83120, 73306 CYTOLOGY STUDY Slides are reviewed. DIAGNOSIS CYTOLOGY [...] Laurent Cope MD 12/23/18 CBC W/Diff, Automatedon 03-2 Absolute Neut 5.0 {X10_3/uL} Normal 2.0-7.7 Compreh ensive Internal Medicine Work Phone: Comment on above: [facility] spital [address] [place], [place], [phone] Basophils/100 WBC (Bld) 0.4 % Normal 0-1 C omprehensive Internal Medicine Work Phone: Comment on above: [facility] [address]pezfx[address] [place], [place], [phone] Eosinophils/100 WBC (Bld) 0.4 % Normal 0-5 [facility] Work Phone: Comment on above: [facility] Jrwuremtsd[address] [place], [place], [phone] Erythrocyte distribution width Ratio (RBC) 13.9 % Normal 11.6-14.6 [facility] Work Phone: Comment on above: [facility] [address]hrq[address] [place], [place], [phone] Hematocrit Volume Fraction (Bld) 38.8 % Abnormal 40-54 [facility] Work Phone: Comment on above: [facility] [address] [place], [place], [phone] Hemoglobin mass conc (Bld) 13.7 g/dL Normal 13.0-16.5 [facility] Work Phone: Comment on above: [facility] [address] [place], [place], [phone] IM GRAN % 0.100 % Normal 0.0-0.9 [facility] Work Phone: Comment on above: IG% - Immature Granu locytes (promyelocytes, myelocytes andmetamyelocytes) > 1% indicates that a LEFT SHIFT is Present. [facility] [address]qcwc[address] [place], [place], [phone] Lymphocytes #/vol (Bld) 2.18 {X10_3/ul} Normal 0.83-4. 51 [facility] Work Phone: Comment on above: [facility] [address] [place], [address] Lymphocytes/100 WBC (Bld) 25.9 % Normal 19-41 [facility] Work Phone: Comment on above: [facility] [address] [place], [address] MCH Entitic mass (RBC) 32.2 pg Abnormal 27.0-32.0 Co [facility] Work Phone: Comment on above: [facility] [address]zd[address] [place], [address] MCHC mass conc (RBC) 35.3 {g/gl} Normal 32-36 [facility] Work Phone: Comment on above: [facility] [address] [place], [address] MCV Entitic volume (RBC) 91.3 fL Normal 80-94 [facility] Work Phone: Comment on above: [facility] [address] [place], [address] Monocytes/100 WBC (Bld) 13.7 % Abnormal 0-10 C [facility]erens[facility] Work Phone: Comment on above: [facility] [address]ags[address] [place], [address] Neutrophils/100 WBC (Bld) 59.5 % Normal 47-70 [facility] Work Phone: Comment on above: [facility] [address]ou[address] [place], [place], [phone] Platelet mean volume Entitic volume (Bld) 9.7 fL Normal 6.2-12.0 Comprehensi ve Internal Medicine Work Phone: Comment on above: [facility] [address]bf[address] [place], [place], [phone] Platelets #/vol (Bld) 337 10*3/uL Normal 150-450 Co mprehensive [facility] Medicine Work Phone: Comment on above: [facility] [address] [place], [place], [phone] RBC #/vol (Bld) 4.25 {M/mm3} Abnormal 4.6-6.2 Compreh ensive Internal Medicine Work Phone: Comment on above: [facility] [address] [place], [place], [phone] RDW SD 45.5 fL Abnormal 35.1-43.9 [facility] Work Phone: Comment on above: [facility] [address] [place], [place], [phone] WBC #/vol (Bld) 8.4 10*3/uL Normal 4.4-11.0 Comprehe nsive Internal Medicine Work Phone: Comment on above: [facility] [address] [place], [place], [phone] Comprehensive Metabolic Prof wvon 12-15-2018 Comprehensive metabolic 2000 panel 6 1 Normal 5-15 [facility] Work Phone: Comment on above: [facility] [address] [place], [place], [phone] [facility] 2000 panel 102 mg/dL Normal 74-106 [facility] Work Phone: Comment on above: Fasting Glucose resu lt from 100 to 125 mg/dLsuggests IMPAIRED HOMEOSTASIS per A.D.A. criteria.Please note revised GLUCOSE reference range butskaozp83/02/2018. [facility] [address] [place], [place], [address] Comprehensive metabolic 2000 panel 7 mg/dL Normal 7-18 [facility] Work Phone: Comment on above: [facility] [address] [place], [place], [address] Comprehensive metabolic 2000 panel 0.57 mg/dL Abnormal 0.70-1.30 [facility] Work Phone: Comment on above: The validity of the calculated GFR AND GFRAA in patients over70 years has not been determined. Clinical correlation isessential. [facility] [address] [place], [place], [phone] [facility] 2000 panel 158 mL/min Normal [facility] Work Phone: Comment on above: Non- GFR Calc [facility] [address] [place], [address] Comprehensive metabolic 2000 panel 191 mL/min Normal [facility] Work Phone: Comment on above: GFR Calc [facility] [address] [place], [place], [address] Comprehensive metabolic 2000 panel 12.3 {RATIO} Normal 10-20 [facility] Work Phone: Comment on above: [facility] [address] [place], [place], [address] Comprehensive metabolic 2000 panel 7.2 g/dL Normal 6.4-8.2 [facility] Work Phone: Comment on above: [facility] [address] [place], [place], [address] Comprehensive metabolic 2000 panel 3.8 g/dL Normal 3.2-5.0 [facility] Work Phone: Comment on above: [facility] [address] [place], [address] Comprehensive metabolic 2000 panel 3.4 g/dL Normal 2.2-4.2 [facility] Work Phone: Comment on above: [facility] [address]uh[address] [place], [address] Comprehensive metabolic 2000 panel 1.1 {RATIO} Normal 0.9-2.4 [facility] Work Phone: Comment on above: [facility] [address] [place], [address] Comprehensive metabolic 2000 panel 8.5 mg/dL Normal 8.5-10.1 [facility] Work Phone: Comment on above: [facility] [address] [place], [address] Comprehensive metabolic 2000 panel 25 U/L Normal 15-37 [facility] Work Phone: Comment on above: [facility] [address] [place], [address] Comprehensive metabolic 2000 panel 59 U/L Normal 45-117 [facility] Work Phone: Comment on above: [facility] [address] [place], [address] Comprehensive metabolic 2000 panel 31 U/L Normal 16-61 [facility] Work Phone: Comment on above: [facility] [address]hu[address] [place], [address] Comprehensive metabolic 2000 panel 0.50 mg/dL Normal 0.20-1.00 [facility] Work Phone: Comment on above: [facility] spital [address] [place], [address] Comprehensive metabolic 2000 panel 132 mmol/L Abnormal 136-145 [facility] Work Phone: Comment on above: [facility] [address] [place], [place], [address] Comprehensive metabolic 2000 panel 4.1 mmol/L Normal 3.5-5.1 [facility] Work Phone: Comment on above: [facility] [address] [place], [place], [address] Comprehensive metabolic 2000 panel 97 mmol/L Abnormal 98-107 [facility] Work Phone: Comment on above: [facility] [address] [place], [place], [address] Comprehensive metabolic 2000 panel 29.0 mmol/L Normal 21.0-32.0 [facility] Work Phone: Comment on above: [facility] [address] [place], [place], [phone] Bacteria identified Anaer cx Nom (Unsp spec) Anaerobic Culture Anaerobic cocci [facility] Work Phone: Anaerobic microbial culture No anaerobic bacteria isolated. [facility] Work Phone: Bacteria identified Cx Nom ( Wound) Wound Culture Proteus vulgaris [facility] Work Phone: Wound Culture Pseudomonas aeroginosa [facility] Work Phone: Wound Culture Meth. resistant Stap h. aureus [facility] Work Phone: Wound Culture Positive [facility] Work Phone: Wound Culture Streptococcus agalactiae (B) [facility] Work Phone: Gram stain for investigation of transfusion reaction Microscopic observation Gram stain Nom (Unsp spec) [facility] Work Phone: Laboratory - Microbiology an d Antimicrobial susceptibility Bacteria identified Cx Nom (Bld) No growth in 5 days. [facility] Work Phone: Vital Signs Date Time Vital Sign Value Performing Clinician Facility 06-10-2025 09:59-0400 Body mass index (BMI) [Ratio] 18.4 kg/m2 Dayami Jha MD Work Phone: [facility] 06-10-2025 09:59-0400 Body weight 51.71 kg Dayami Jha MD Work Phone: [facility] 05-07-2025 10:44-0400 Body height 166 cm Roman Morales MD Work Phone: [place] 05-07-2025 10:44-0400 Body height 166.37 cm Roman Morales MD Work Phone: [place] 05-07-2025 10:44-0400 Body mass index (BMI) [Ratio] 19.57 kg/m2 Roman Morales MD Work Phone: [place] 05-07-2025 10:44-0400 Body weight 54 kg Roman Morales MD Work Phone: [place] 05-07-2025 10:44-0400 Body weight 53.98 kg Roman Morales MD Work Phone: [place] 05-07-2025 10:44-0400 BP SITE #1 Roman Morales MD Work Phone: [place] 05-07-2025 10:44-0400 BP SITE #2 Roman Morales MD Work Phone: [place] 05-07-2025 10:44-0400 Diastolic blood pressure 71 mm[Hg] Roman Morales MD Work Phone: [place] 05-07-2025 10:44-0400 Diastolic blood pressure 77 mm[Hg] Roman Morales MD Work Phone: [place] 05-07-2025 10:44-0400 Heart rate 79 /min Roman Morales MD Work Phone: [place] 05-07-2025 10:44-0400 HGHTCHNVIS Roman Morales MD Work Phone: [place] 05-07-2025 10:44-0400 Systolic blood pressure 169 mm[Hg] Roman Morales MD Work Phone: [place] 05-07-2025 10:44-0400 Systolic blood pressure 161 mm[Hg] Roman Morales MD Work Phone: [place] 05-07-2025 10:44-0400 VITALSDONE Roman Morales MD Work Phone: [place] 04-15-2025 09:12-0400 Body temperature 97.9 [degF] Sadie Santiago 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 Work Phone: [facility] 04-15-2025 09:12-0400 Diastolic blood pressure 64 mm[Hg] Sadie Santiago 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 Work Phone: [facility] 04-15-2025 09:12-0400 Heart rate 57 /min Sadie Santiago 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 Work Phone: [facility] 04-15-2025 09:12-0400 Respiratory rate 16 /min Sadie Santiago 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 Work Phone: [facility] 04-15-2025 09:12-0400 SaO2% (BldA) [Mass fraction] 98 % Sadie Santiago 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 Work Phone: [facility] 04-15-2025 09:12-0400 Systolic blood pressure 108 mm[Hg] Sadie Santiago 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 Work Phone: [facility] 04-15-2025 07:40-0400 Body height 165.1 cm Sadie Santiago 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 Work Phone: [facility] 04-15-2025 07:40-0400 Body mass index (BMI) [Ratio] 19.8 kg/m2 Sadie Wolffam 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 Work Phone: [facility] 04-15-2025 07:40-0400 Body weight 54 kg Sadie Wolffam 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 Work Phone: [facility] 03-01-2025 08:43-0400 Body height 167.6 cm Rachel Brooks MD Work Phone: [facility] 03-01-2025 08:43-0400 Body mass index (BMI) [Ratio] 18.72 kg/m2 Rachel Brooks MD Work Phone: [facility] 03-01-2025 08:43-0400 Body weight 52.62 kg Rachel Brooks MD Work Phone: [facility] 02-02-2025 10:41-0400 Body height 165.1 cm Sadie Wolffam 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 Work Phone: [facility] 02-02-2025 10:41-0400 Body weight 54.65 kg Sadie Wolffam 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 Work Phone: [facility] 02-02-2025 09:30-0400 Body height 165.1 cm Sadie Wolffam 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 Work Phone: [facility] 02-02-2025 09:30-0400 Body mass index (BMI) [Ratio] 20 kg/m2 Sadie Wolffam 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 Work Phone: [facility] 02-02-2025 09:30-0400 Body temperature 98.4 [degF] Sadie Wolffam 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 Work Phone: [facility] 02-02-2025 09:30-0400 Body weight 54.65 kg Sadie Wolffam 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 Work Phone: [facility] 02-02-2025 09:30-0400 Diastolic blood pressure 80 mm[Hg] Sadie Santiago 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 Work Phone: [facility] 02-02-2025 09:30-0400 Heart rate 70 /min Sadie Jack 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 Work Phone: [facility] 02-02-2025 09:30-0400 Respiratory rate 18 /min Sadie Jack 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 Work Phone: [facility] 02-02-2025 09:30-0400 SaO2% (BldA) [Mass fraction] 100 % Sadie Jack 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 Work Phone: [facility] 02-02-2025 09:30-0400 Systolic blood pressure 148 mm[Hg] Sadie Jack 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 Work Phone: [facility] 01-05-2025 11:22-0400 Body weight 55.5 kg Sadie Jack 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 Work Phone: [facility] 01-05-2025 11:08-0400 Body mass index (BMI) [Ratio] 20.1 kg/m2 Sadie Jack 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 Work Phone: [facility] 01-05-2025 11:08-0400 Body temperature 99.7 [degF] Sadie Jack 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 Work Phone: [facility] 01-05-2025 11:08-0400 Body weight 54.88 kg Sadie Jack 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 Work Phone: [facility] 01-05-2025 11:08-0400 Diastolic blood pressure 71 mm[Hg] Sadie Jack 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 Work Phone: [facility] 01-05-2025 11:08-0400 Heart rate 91 /min Sadie Jack 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 Work Phone: [facility] 01-05-2025 11:08-0400 Respiratory rate 16 /min Sadie Jack 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 Work Phone: [facility] 01-05-2025 11:08-0400 SaO2% (BldA) [Mass fraction] 97 % Sadie Jack 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 Work Phone: [facility] 01-05-2025 11:08-0400 Systolic blood pressure 123 mm[Hg] Sadie Jack BUNN Work Phone: [facility] 10-21-2024 07:50-0500 Body temperature 97.1 [degF] Dr. Quincy Simpson MD Work Phone: [facility] 10-21-2024 07:50-0500 Diastolic blood pressure 62 mm[Hg] Dr. Quincy Simpson MD Work Phone: [facility] 10-21-2024 07:50-0500 Heart rate 58 /min Dr. Quincy Simpson MD Work Phone: [facility] 10-21-2024 07:50-0500 Respiratory rate 16 /min Dr. Quincy Simpson MD Work Phone: [facility] 10-21-2024 07:50-0500 SaO2% (BldA) [Mass fraction] 98 % Dr. Quincy Simpson MD Work Phone: [facility] 10-21-2024 07:50-0500 Systolic blood pressure 118 mm[Hg] Dr. Quincy Simpson MD Work Phone: [facility] 10-21-2024 05:51-0500 Body height 165.[address] Quincy Simpson MD Work Phone: [facility] 10-21-2024 05:51-0500 Body mass index (BMI) [Ratio] 19.8 kg/m2 Dr. Quincy Simpson MD Work Phone: [facility] 10-21-2024 05:51-0500 Body weight [address] Quincy Simpson MD Work Phone: [facility] 09-28-2024 12:06-0500 Body mass index (BMI) [Ratio] 19.8 kg/m2 Dr. Quincy Simpson MD Work Phone: [facility] 09-28-2024 12:06-0500 Body temperature 98.9 [degF] Dr. Quincy Simpson MD Work Phone: [facility] 09-28-2024 12:06-0500 Body weight 55.[address] Quincy Simpson MD Work Phone: [facility] 09-28-2024 12:06-0500 Diastolic blood pressure 72 mm[Hg] Dr. Quincy Simpson MD Work Phone: [facility] 09-28-2024 12:06-0500 Heart rate 85 /min Dr. Quincy Simpson MD Work Phone: [facility] 09-28-2024 12:06-0500 Respiratory rate 16 /min Dr. Quincy Simpson MD Work Phone: [facility] 09-28-2024 12:06-0500 SaO2% (BldA) [Mass fraction] 98 % Dr. Quincy Simspon MD Work Phone: [facility] 09-28-2024 12:06-0500 Systolic blood pressure 124 mm[Hg] Dr. Quincy Simpson MD Work Phone: [facility] 09-15-2024 10:15-0500 Diastolic blood pressure 58 mm[Hg] Dr. Quincy Simpson MD Work Phone: [facility] 09-15-2024 10:15-0500 Heart rate 68 /min Dr. Quincy Simpson MD Work Phone: [facility] 09-15-2024 10:15-0500 Respiratory rate 23 /min Dr. Quincy Simpson MD Work Phone: [facility] 09-15-2024 10:15-0500 Systolic blood pressure 124 mm[Hg] Dr. Quincy Simpson MD Work Phone: [facility] 09-15-2024 09:24-0500 Body mass index (BMI) [Ratio] 19.8 kg/m2 Dr. Quincy Simpson MD Work Phone: [facility] 09-15-2024 09:24-0500 Body temperature 98.5 [degF] Dr. Quincy Simpson MD Work Phone: [facility] 09-15-2024 09:24-0500 Body weight 56.[address] Quincy Simpson MD Work Phone: [facility] 09-15-2024 09:24-0500 SaO2% (BldA) [Mass fraction] 97 % Dr. Quincy Simpson MD Work Phone: [facility] 09-07-2024 14:03-0500 Body weight 55.[address] Quincy Simpson MD Work Phone: [phone] [address] 09-07-2024 13:44-0500 Body mass index (BMI) [Ratio] 20.3 kg/m2 Dr. Quincy Simpson MD Work Phone: [phone] [address] 09-07-2024 13:44-0500 Body temperature 97.5 [degF] Dr. Quincy Simpson MD Work Phone: [phone] [place] [address] 09-07-2024 13:44-0500 Body weight 55.[address] Quincy Simpson MD Work Phone: [facility] 09-07-2024 13:44-0500 Diastolic blood pressure 74 mm[Hg] Dr. Quincy Simpson MD Work Phone: [facility] 09-07-2024 13:44-0500 Heart rate 78 /min Dr. Quincy Simpson MD Work Phone: [facility] 09-07-2024 13:44-0500 Respiratory rate 16 /min Dr. Quincy Simpson MD Work Phone: [facility] 09-07-2024 13:44-0500 SaO2% (BldA) [Mass fraction] 97 % Dr. Quincy Simpson MD Work Phone: [facility] 09-07-2024 13:44-0500 Systolic blood pressure 146 mm[Hg] Dr. Quincy Simpson MD Work Phone: [facility] 08-31-2024 09:04-0500 Body mass index (BMI) [Ratio] 20.27 kg/m2 Rachel Brooks MD Work Phone: [facility] 08-31-2024 09:04-0500 Body weight 56.97 kg Rachel Brooks MD Work Phone: [facility] 08-31-2024 09:04-0500 Diastolic blood pressure 75 mm[Hg] Rachel Brooks MD Work Phone: [facility] 08-31-2024 09:04-0500 Heart rate 86 /min Rachel Brooks MD Work Phone: [facility] 08-31-2024 09:04-0500 Systolic blood pressure 151 mm[Hg] Rachel Brooks MD Work Phone: [facility] 04-13-2024 13:33-0400 Body height 167.6 cm Rachel Brooks MD Work Phone: [facility] 04-13-2024 13:33-0400 Body mass index (BMI) [Ratio] 20.98 kg/m2 Rachel Brooks MD Work Phone: [facility] 04-13-2024 13:33-0400 Body weight 58.97 kg Rachel Brooks MD Work Phone: [facility] 09-03-2023 14:50-0500 Body temperature 97.3 [degF] 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 Kya Posadasa [employer] Work Phone: [facility] 09-03-2023 14:50-0500 Diastolic blood pressure 66 mm[Hg] 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 Kya Ciesa [employer] Work Phone: [facility] 09-03-2023 14:50-0500 Heart rate 57 /min 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 Kya Riveroesa [employer] Work Phone: [facility] 09-03-2023 14:50-0500 Respiratory rate 16 /min 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 Kya Ciesa [employer] Work Phone: [facility] 09-03-2023 14:50-0500 SaO2% (BldA) [Mass fraction] 100 % 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 Kya Gonzalez [employer] Work Phone: [facility] 09-03-2023 14:50-0500 Systolic blood pressure 105 mm[Hg] 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 Kya Gonzalez [employer] Work Phone: [facility] 09-03-2023 13:18-0500 Body height 165.1 cm 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 Kya Gonzalez [employer] Work Phone: [facility] 09-03-2023 13:18-0500 Body mass index (BMI) [Ratio] 20.9 kg/m2 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 Kya Gonzalez [employer] Work Phone: [facility] 09-03-2023 13:18-0500 Body weight 57.1 kg 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 Kya Gonzalez [employer] Work Phone: [facility] 09-02-2023 13:55-0500 Body height 167.6 cm Rachel Brooks MD Work Phone: [facility] 09-02-2023 13:55-0500 Body mass index (BMI) [Ratio] 20.14 kg/m2 Rachel Brooks MD Work Phone: [facility] 09-02-2023 13:55-0500 Body weight 56.61 kg Rachel Brooks MD Work Phone: [facility] 08-05-2023 09:05-0500 Body mass index (BMI) [Ratio] 21.9 kg/m2 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 Kya Gonzalez [employer] Work Phone: [facility] 08-05-2023 09:05-0500 Body temperature 98.6 [degF] 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 Kya Gonzalez [employer] Work Phone: [facility] 08-05-2023 09:05-0500 Body weight 57.86 kg 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 Kya Gonzalez [employer] Work Phone: [facility] 08-05-2023 09:05-0500 Diastolic blood pressure 75 mm[Hg] 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 Kya Posadasa [employer] Work Phone: [facility] 08-05-2023 09:05-0500 Heart rate 74 /min 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 Kya Posadasa [employer] Work Phone: [facility] 08-05-2023 09:05-0500 Respiratory rate 18 /min 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 Kya Posadasa [employer] Work Phone: [facility] 08-05-2023 09:05-0500 SaO2% (BldA) [Mass fraction] 100 % 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 Kya Posadasa [employer] Work Phone: [facility] 08-05-2023 09:05-0500 Systolic blood pressure 138 mm[Hg] 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 Kya Posadasa [employer] Work Phone: [facility] 07-22-2023 07:57-0400 Body height 170.18 cm Koki [...] Phone: 05-22-2023 11:03-0400 Body height 162.56 cm 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 Kya Gonzalez [employer] Work Phone: [facility] 05-22-2023 11:03-0400 Body mass index (BMI) [Ratio] 21.8 kg/m2 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 Kya Posadasa [employer] Work Phone: [facility] 05-22-2023 11:03-0400 Body temperature 99.4 [degF] 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 Kya Posadasa [employer] Work Phone: [facility] 05-22-2023 11:03-0400 Body weight 57.66 kg 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 Kya Posadasa [employer] Work Phone: [facility] 05-22-2023 11:03-0400 Diastolic blood pressure 73 mm[Hg] 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 Kya Posadasa [employer] Work Phone: [facility] 05-22-2023 11:03-0400 Heart rate 79 /min 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 Kya Ciesa [employer] Work Phone: [facility] 05-22-2023 11:03-0400 Respiratory rate 18 /min 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 Kya Posadasa [employer] Work Phone: [facility] 05-22-2023 11:03-0400 SaO2% (BldA) [Mass fraction] 100 % 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 Kya Posadasa [employer] Work Phone: [facility] 05-22-2023 11:03-0400 Systolic blood pressure 144 mm[Hg] 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 Kya Posadasa [employer] Work Phone: [facility] 04-10-2023 08:36-0400 Body mass index (BMI) [Ratio] 22.3 kg/m2 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 Kya Posadasa [employer] Work Phone: [facility] 04-10-2023 08:36-0400 Diastolic blood pressure 62 mm[Hg] 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 Kya Posadasa [employer] Work Phone: [facility] 04-10-2023 08:36-0400 Heart rate 79 /min 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 Kya Posadasa [employer] Work Phone: [facility] 04-10-2023 08:36-0400 Respiratory rate 16 /min 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 Kya Posadasa [employer] Work Phone: [facility] 04-10-2023 08:36-0400 Systolic blood pressure 132 mm[Hg] 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 Kya Posadasa [employer] Work Phone: [facility] 04-03-2023 08:38-0400 Body temperature 97.9 [degF] 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 Kya Posadasa [employer] Work Phone: [facility] 03-23-2023 00:56-0400 Body weight 58.96 kg 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 Kya Posadasa [employer] Work Phone: [facility] 03-20-2023 09:07-0400 Body mass index (BMI) [Ratio] 22.3 kg/m2 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 Kya Posadasa [employer] Work Phone: [facility] 03-20-2023 09:07-0400 Diastolic blood pressure 62 mm[Hg] 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 Kya Gonzalez [employer] Work Phone: [facility] 03-20-2023 09:07-0400 Heart rate 62 /min 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 Kya Gonzalez [employer] Work Phone: [facility] 03-20-2023 09:07-0400 Respiratory rate 16 /min 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 Kya Gonzalez [employer] Work Phone: [facility] 03-20-2023 09:07-0400 Systolic blood pressure 113 mm[Hg] 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 Kya Gonzalez [employer] Work Phone: [facility] 03-13-2023 09:28-0400 Body temperature 97.7 [degF] 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 Kya Gonzalez [employer] Work Phone: [facility] 03-06-2023 08:52-0400 Body height 166.37 cm Kya Gonzalez Work Phone: VV-Nkxhowthhbjorn-Zq mike Work Phone: 03-06-2023 08:52-0400 Body mass index (BMI) [Ratio] 20.48 kg/m2 Kya Gonzalez Work Phone: MT-Oyifvlhmyfuanc-Sq mike Work Phone: 03-06-2023 08:52-0400 Body surface area Derived from formula 1.63 m2 Kya Gonzalez Work Phone: DW-Kwlabroiptjigz-Gb mike Work Phone: 03-06-2023 08:52-0400 Body temperature 97.4 [degF] Kya Gonzalez Work Phone: QV-Aojegorkmclexw-Np mike Work Phone: 03-06-2023 08:52-0400 Body weight 56.7 kg Kya Gonzalez Work Phone: QW-Hviwkszwvhexdb-Bx mike Work Phone: 03-06-2023 08:52-0400 Diastolic blood pressure 79 mm[Hg] Kya Gonzalez Work Phone: ND-Zvwnwtyzaunegj-Uo mike Work Phone: 03-06-2023 08:52-0400 Heart rate 76 /min Kya Gonzalez Work Phone: ZU-Jelezaovgnehuh-Pb mike Work Phone: 03-06-2023 08:52-0400 Systolic blood pressure 132 mm[Hg] Kya Gonzalez Work Phone: CG-Uyyhsvnpcihsma-Ik ron Work Phone: 02-25-2023 13:12-0400 Body mass index (BMI) [Ratio] 20.52 kg/m2 Kya Gonzalez Work Phone: OA-Zkuelrzakmcpfu-Hr [place] Work Phone: 02-25-2023 13:12-0400 Body surface area Derived from formula 1.63 m2 Kya Gonzalez Work Phone: TI-Nvxyahryyfofcu-Qk [place] Work Phone: 02-25-2023 13:12-0400 Body weight 56.79 kg Kya Gonzalez Work Phone: ZY-Tdflvajqgmmejz-Ob [place] Work Phone: 02-21-2023 00:25-0400 Body weight 58.96 kg 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 Kya Gonzalez [employer] Work Phone: [facility] 02-20-2023 08:46-0400 Body mass index (BMI) [Ratio] 22.3 kg/m2 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 Kya Posadasa [employer] Work Phone: [facility] 02-20-2023 08:46-0400 Body temperature 97.5 [degF] 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 Kya Posadasa [employer] Work Phone: [facility] 02-20-2023 08:46-0400 Diastolic blood pressure 60 mm[Hg] 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 Kya Ciesa [employer] Work Phone: [facility] 02-20-2023 08:46-0400 Heart rate 74 /min 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 Kya Ciesa [employer] Work Phone: [facility] 02-20-2023 08:46-0400 Respiratory rate 18 /min 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 Kya Ciesa [employer] Work Phone: [facility] 02-20-2023 08:46-0400 Systolic blood pressure 126 mm[Hg] 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 Kya Ciesa [employer] Work Phone: [facility] 01-31-2023 10:04-0400 Body height 162.56 cm 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 Kya Ciesa [employer] Work Phone: [facility] 01-31-2023 10:00-0400 Body mass index (BMI) [Ratio] 21.5 kg/m2 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 Kya Ciesa [employer] Work Phone: [facility] 01-31-2023 10:00-0400 Body temperature 96.8 [degF] 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 Kya Ciesa [employer] Work Phone: [facility] 01-31-2023 10:00-0400 Body weight 56.86 kg 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 Kya Ciesa [employer] Work Phone: [facility] 01-31-2023 10:00-0400 Diastolic blood pressure 80 mm[Hg] 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 Kya Ciesa [employer] Work Phone: [facility] 01-31-2023 10:00-0400 Heart rate 81 /min 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 Kya Ciesa [employer] Work Phone: [facility] 01-31-2023 10:00-0400 Respiratory rate 16 /min 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 Kya Ciesa [employer] Work Phone: [facility] 01-31-2023 10:00-0400 Systolic blood pressure 121 mm[Hg] 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 Kya Ciesa [employer] Work Phone: [facility] 01-30-2023 08:27-0400 Body mass index (BMI) [Ratio] 22.3 kg/m2 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 Kya Gonzalez [employer] Work Phone: [facility] 01-30-2023 08:27-0400 Body temperature 99 [degF] 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 Kya Gonzalez [employer] Work Phone: [facility] 01-30-2023 08:27-0400 Diastolic blood pressure 62 mm[Hg] 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 Kya Gonzalez [employer] Work Phone: [facility] 01-30-2023 08:27-0400 Heart rate 72 /min 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 Kya Posadasa [employer] Work Phone: [facility] 01-30-2023 08:27-0400 Respiratory rate 18 /min 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 Kya Gonzalez [employer] Work Phone: [facility] 01-30-2023 08:27-0400 Systolic blood pressure 115 mm[Hg] 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 Kya Gonzalez [employer] Work Phone: [facility] 01-28-2023 16:16-0400 Body height 166.37 cm Kya Gonzalez Work Phone: FK-Eknmldmpjiuxle-Zt mike [address] Work Phone: 01-28-2023 16:16-0400 Body mass index (BMI) [Ratio] 20.32 kg/m2 Kya Gonzalez Work Phone: LD-Ibvdscabrxwinb-Bx mike [address] Work Phone: 01-28-2023 16:16-0400 Body surface area Derived from formula 1.62 m2 Kya Gonzalez Work Phone: RF-Mitgwwesluvgjz-Cc mike [address] Work Phone: 01-28-2023 16:16-0400 Body weight 56.25 kg Kya Gonzalez Work Phone: JM-Ycvvlmadbdrjpu-Mq mike [address] Work Phone: 01-21-2023 00:26-0400 Body weight 58.96 kg 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 Kya Posadasa [employer] Work Phone: [facility] 01-16-2023 08:32-0400 Body mass index (BMI) [Ratio] 22.3 kg/m2 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 Kya Ciesa [employer] Work Phone: [facility] 01-16-2023 08:32-0400 Body temperature 97 [degF] 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 Kya Ciesa [employer] Work Phone: [facility] 01-16-2023 08:32-0400 Diastolic blood pressure 55 mm[Hg] 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 Kya Ciesa [employer] Work Phone: [facility] 01-16-2023 08:32-0400 Heart rate 73 /min 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 Kya Ciesa [employer] Work Phone: [facility] 01-16-2023 08:32-0400 Respiratory rate 18 /min 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 Kya Josefaesa [employer] Work Phone: [facility] 01-16-2023 08:32-0400 Systolic blood pressure 117 mm[Hg] 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 Kya Ciesa [employer] Work Phone: [facility] 01-16-2023 07:51-0400 Body height 170.18 cm Koki [...] Phone: 12-22-2022 01:22-0400 Body weight 58.96 kg 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 Kya Ciesa [employer] Work Phone: [facility] 12-12-2022 08:52-0400 Body mass index (BMI) [Ratio] 22.3 kg/m2 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 Kya Ciesa [employer] Work Phone: [facility] 12-12-2022 08:52-0400 Body temperature 96.9 [degF] 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 Kya Ciesa [employer] Work Phone: [facility] 12-12-2022 08:52-0400 Diastolic blood pressure 66 mm[Hg] 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 Kya Ciesa [employer] Work Phone: [facility] 12-12-2022 08:52-0400 Heart rate 77 /min 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 Kya Ciesa [employer] Work Phone: [facility] 12-12-2022 08:52-0400 Systolic blood pressure 113 mm[Hg] 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 Kya Ciesa [employer] Work Phone: [facility] 11-28-2022 08:23-0500 Respiratory rate 18 /min 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 Kya Ciesa [employer] Work Phone: [facility] 11-21-2022 13:10-0500 Body height 162.56 cm 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 Kya Posadasa [employer] Work Phone: [facility] 11-21-2022 13:09-0500 Body mass index (BMI) [Ratio] 21.5 kg/m2 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 Kya Posadasa [employer] Work Phone: [facility] 11-21-2022 13:09-0500 Body temperature 98.4 [degF] 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 Kya Posadasa [employer] Work Phone: [facility] 11-21-2022 13:09-0500 Body weight 56.86 kg 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 Kya Posadasa [employer] Work Phone: [facility] 11-21-2022 13:09-0500 Diastolic blood pressure 76 mm[Hg] 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 Kya Posadasa [employer] Work Phone: [facility] 11-21-2022 13:09-0500 Heart rate 78 /min 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 Kya Posadasa [employer] Work Phone: [facility] 11-21-2022 13:09-0500 Respiratory rate 18 /min 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 Kya Posadasa [employer] Work Phone: [facility] 11-21-2022 13:09-0500 SaO2% (BldA) [Mass fraction] 100 % 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 Kya Posadasa [employer] Work Phone: [facility] 11-21-2022 13:09-0500 Systolic blood pressure 129 mm[Hg] 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 Kya Posadasa [employer] Work Phone: [facility] 11-21-2022 00:17-0500 Body weight 58.96 kg 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 Kya Posadasa [employer] Work Phone: [facility] 11-14-2022 08:59-0500 Body mass index (BMI) [Ratio] 22.3 kg/m2 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 Kya Posadasa [employer] Work Phone: [facility] 11-14-2022 08:59-0500 Body temperature 97.6 [degF] 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 Kya Riveroesa [employer] Work Phone: [facility] 11-14-2022 08:59-0500 Diastolic blood pressure 53 mm[Hg] 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 Kay Ciesa [employer] Work Phone: [facility] 11-14-2022 08:59-0500 Heart rate 75 /min 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 Kya Ciesa [employer] Work Phone: [facility] 11-14-2022 08:59-0500 Systolic blood pressure 113 mm[Hg] 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 Kya Ciesa [employer] Work Phone: [facility] 11-05-2022 08:05-0500 Body height 162.56 cm 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 Kya Ciesa [employer] Work Phone: [facility] 11-05-2022 08:05-0500 Body weight 57.6 kg 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 Kya Josefaesa [employer] Work Phone: [facility] 11-01-2022 09:33-0500 Body mass index (BMI) [Ratio] 21.8 kg/m2 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 Kya Ciesa [employer] Work Phone: [facility] 11-01-2022 09:33-0500 Body temperature 97.3 [degF] 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 Kya Riveroesa [employer] Work Phone: [facility] 11-01-2022 09:33-0500 Body weight 57.6 kg 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 Kya Ciesa [employer] Work Phone: [facility] 11-01-2022 09:33-0500 Diastolic blood pressure 57 mm[Hg] 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 Kya Ciesa [employer] Work Phone: [facility] 11-01-2022 09:33-0500 Heart rate 91 /min 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 Kya Ciesa [employer] Work Phone: [facility] 11-01-2022 09:33-0500 Respiratory rate 18 /min 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 Kya Ciesa [employer] Work Phone: [facility] 11-01-2022 09:33-0500 SaO2% (BldA) [Mass fraction] 94 % 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 Kya Posadasa [employer] Work Phone: [facility] 11-01-2022 09:33-0500 Systolic blood pressure 117 mm[Hg] 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 Kya Ciesa [employer] Work Phone: [facility] 10-24-2022 00:23-0500 Body weight 58.96 kg 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 Kya Ciesa [employer] Work Phone: [facility] 10-24-2022 00:23-0500 Respiratory rate 16 /min 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 Kya Ciesa [employer] Work Phone: [facility] 10-10-2022 08:29-0500 Body mass index (BMI) [Ratio] 22.3 kg/m2 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 Kya Ciesa [employer] Work Phone: [facility] 10-10-2022 08:29-0500 Body temperature 97.4 [degF] 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 Kya Riveroesa [employer] Work Phone: [facility] 10-10-2022 08:29-0500 Diastolic blood pressure 59 mm[Hg] 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 Kya Riveroesa [employer] Work Phone: [facility] 10-10-2022 08:29-0500 Heart rate 69 /min 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 Kya Ciesa [employer] Work Phone: [facility] 10-10-2022 08:29-0500 Respiratory rate 16 /min 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 Kya Ciesa [employer] Work Phone: [facility] 10-10-2022 08:29-0500 Systolic blood pressure 121 mm[Hg] 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 Kya Ciesa [employer] Work Phone: [facility] 09-23-2022 00:13-0500 Body weight 58.96 kg 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 Kya Ciesa [employer] Work Phone: [facility] 09-19-2022 08:29-0500 Body mass index (BMI) [Ratio] 22.3 kg/m2 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 Kya Ciesa [employer] Work Phone: [facility] 09-19-2022 08:29-0500 Body temperature 97.2 [degF] 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 Kya Ciesa [employer] Work Phone: [facility] 09-19-2022 08:29-0500 Diastolic blood pressure 63 mm[Hg] 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 Kya Ciesa [employer] Work Phone: [facility] 09-19-2022 08:29-0500 Heart rate 69 /min 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 Kya Ciesa [employer] Work Phone: [facility] 09-19-2022 08:29-0500 Systolic blood pressure 116 mm[Hg] 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 Kya Ciesa [employer] Work Phone: [facility] 09-12-2022 08:25-0500 Respiratory rate 16 /min 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 Kya Ciesa [employer] Work Phone: [facility] 08-23-2022 00:14-0500 Body weight 58.96 kg 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 Kya Ciesa [employer] Work Phone: [facility] 08-22-2022 08:29-0500 Body mass index (BMI) [Ratio] 22.3 kg/m2 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 Kya Ciesa [employer] Work Phone: [facility] 08-22-2022 08:29-0500 Body temperature 98.2 [degF] 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 Kya Ciesa [employer] Work Phone: [facility] 08-22-2022 08:29-0500 Diastolic blood pressure 58 mm[Hg] 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 Kya Ciesa [employer] Work Phone: [facility] 08-22-2022 08:29-0500 Heart rate 75 /min 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 Kya Ciesa [employer] Work Phone: [facility] 08-22-2022 08:29-0500 Respiratory rate 16 /min 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 Kya Ciesa [employer] Work Phone: [facility] 08-22-2022 08:29-0500 Systolic blood pressure 117 mm[Hg] 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 Kya Posadasa [employer] Work Phone: [facility] 07-31-2022 09:11-0500 Body height 162.56 cm 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 Kya Posadasa [employer] Work Phone: [facility] 07-31-2022 09:10-0500 Body mass index (BMI) [Ratio] 22.1 kg/m2 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 Kya Posadasa [employer] Work Phone: [facility] 07-31-2022 09:10-0500 Body temperature 97.9 [degF] 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 Kya Posadasa [employer] Work Phone: [facility] 07-31-2022 09:10-0500 Body weight 58.62 kg [employer] Kya Posadasa [employer] Work Phone: [facility] 07-31-2022 09:10-0500 Diastolic blood pressure 65 mm[Hg] [employer] Kya Posadasa [employer] Work Phone: [facility] 07-31-2022 09:10-0500 Heart rate 88 /min [employer] Kya Posadasa [employer] Work Phone: [facility] 07-31-2022 09:10-0500 Respiratory rate 16 /min [employer] Kya Posadasa [employer] Work Phone: [facility] 07-31-2022 09:10-0500 SaO2% (BldA) [Mass fraction] 98 % [employer] Kya Posadasa [employer] Work Phone: [facility] 07-31-2022 09:10-0500 Systolic blood pressure 113 mm[Hg] [employer] Kya Posadasa [employer] Work Phone: [facility] 07-24-2022 00:14-0400 Body weight 58.96 kg [employer] Kya Posadasa [employer] Work Phone: [facility] 07-18-2022 08:31-0400 Body mass index (BMI) [Ratio] 22.3 kg/m2 [employer] yKa Posadasa [employer] Work Phone: [facility] 07-18-2022 08:31-0400 Body temperature 96.9 [degF] [employer] Kya Riveroesa [employer] Work Phone: [facility] 07-18-2022 08:31-0400 Diastolic blood pressure 57 mm[Hg] [employer] Kya Josefaesa [employer] Work Phone: [facility] 07-18-2022 08:31-0400 Heart rate 81 /min [employer] Kya Riveroesa [employer] Work Phone: [facility] 07-18-2022 08:31-0400 Systolic blood pressure 133 mm[Hg] [employer] Kya Josefaesa [employer] Work Phone: [facility] 07-04-2022 08:19-0400 Respiratory rate 18 /min [employer] Kya Riveroesa [employer] Work Phone: [facility] 06-23-2022 00:29-0400 Body weight 58.96 kg [employer] Kya Posadasa [employer] Work Phone: [facility] 06-20-2022 08:43-0400 Body mass index (BMI) [Ratio] 22.3 kg/m2 [employer] Kya Riveroesa [employer] Work Phone: [facility] Work Phone: 06-20-2022 08:43-0400 Body temperature 97.2 [degF] [employer] Kya Riveroesa [employer] Work Phone: [facility] Work Phone: 06-20-2022 08:43-0400 Diastolic blood pressure 63 mm[Hg] [employer] Kya Riveroesa [employer] Work Phone: [facility] Work Phone: 06-20-2022 08:43-0400 Heart rate 63 /min [employer] Kya Ciesa [employer] Work Phone: [facility] Work Phone: 06-20-2022 08:43-0400 Systolic blood pressure 124 mm[Hg] [employer] Kya Gonzalez [employer] Work Phone: [facility] Work Phone: 06-18-2022 08:48-0400 Body mass index (BMI) [Ratio] 21.39 kg/m2 Kya Gonzalez Work Phone: ZD-Kwdigjgklwamcu-Ol mike Work Phone: 06-18-2022 08:48-0400 Body surface area Derived from formula 1.66 m2 Kya Gonzalez Work Phone: SA-Ikrclokeihztoq-Qk mike Work Phone: 06-18-2022 08:48-0400 Body weight 59.19 kg Kya Gonzalez Work Phone: DP-Exgjopfplbjghn-Da mike Work Phone: 06-13-2022 08:22-0400 Respiratory rate 16 /min [employer] Kya Gonzalez [employer] Work Phone: [facility] Work Phone: 05-24-2022 00:05-0400 Body weight 58.96 kg [employer] Kya Gonzalez [employer] Work Phone: [facility] Work Phone: 05-23-2022 11:35-0400 Body height 162.56 cm [employer] Kya Gonzalez [employer] Work Phone: [facility] Work Phone: 05-23-2022 11:35-0400 Body mass index (BMI) [Ratio] 21.9 kg/m2 [employer] Kya Gonzalez [employer] Work Phone: [facility] Work Phone: 05-23-2022 11:35-0400 Body temperature 98.4 [degF] [employer] Kya Posadasa [employer] Work Phone: [facility] Work Phone: 05-23-2022 11:35-0400 Body weight 58.11 kg [employer] Kya Posadasa [employer] Work Phone: [facility] Work Phone: 05-23-2022 11:35-0400 Diastolic blood pressure 75 mm[Hg] [employer] Kya Posadasa [employer] Work Phone: [facility] Work Phone: 05-23-2022 11:35-0400 Heart rate 69 /min [employer] Kya Posadasa [employer] Work Phone: [facility] Work Phone: 05-23-2022 11:35-0400 Respiratory rate 16 /min [employer] Kya Posadasa [employer] Work Phone: [facility] Work Phone: 05-23-2022 11:35-0400 SaO2% (BldA) [Mass fraction] 99 % [employer] Kya Posadasa [employer] Work Phone: [facility] Work Phone: 05-23-2022 11:35-0400 Systolic blood pressure 152 mm[Hg] [employer] Kya Posadasa [employer] Work Phone: [facility] Work Phone: 05-23-2022 09:23-0400 Body mass index (BMI) [Ratio] 22.3 kg/m2 [employer] Kya Posadasa [employer] Work Phone: [facility] Work Phone: 05-23-2022 09:23-0400 Body temperature 97.3 [degF] [employer] Kya Posadasa [employer] Work Phone: [facility] Work Phone: 05-23-2022 09:23-0400 Diastolic blood pressure 61 mm[Hg] [employer] Kya Posadasa [employer] Work Phone: [facility] Work Phone: 05-23-2022 09:23-0400 Heart rate 67 /min [employer] Kya Gonzalez [employer] Work Phone: [facility] Work Phone: 05-23-2022 09:23-0400 Systolic blood pressure 125 mm[Hg] [employer] Kya Gonzalez [employer] Work Phone: [facility] Work Phone: 05-14-2022 08:51-0400 Body height 166.37 cm Kya Gonzalez Work Phone: JI-Nphgdhinmnmdyc-Iq mike Work Phone: 05-14-2022 08:51-0400 Body mass index (BMI) [Ratio] 21.55 kg/m2 Kya Gonzalez Work Phone: BU-Ngebjksxagjopl-Av mike Work Phone: 05-14-2022 08:51-0400 Body surface area Derived from formula 1.66 m2 Kya Gonzalez Work Phone: SJ-Ssmepcjrxzwxuw-Ip mike Work Phone: 05-14-2022 08:51-0400 Body weight 59.65 kg Kya Gonzalez Work Phone: YT-Hscqebvxgbcytz-Az mike Work Phone: 05-02-2022 09:34-0400 Respiratory rate 18 /min [employer] Kya Gonzalez [employer] Work Phone: [facility] Work Phone: 04-30-2022 09:01-0400 Body mass index (BMI) [Ratio] 21.7 kg/m2 [employer] Kya Gonzalez [employer] Work Phone: [facility] Work Phone: 04-30-2022 09:01-0400 Body temperature 98 [degF] [employer] Kya Gonzalez [employer] Work Phone: [facility] Work Phone: 04-30-2022 09:01-0400 Body weight 57.32 kg [employer] Kya Gonzalez [employer] Work Phone: [facility] Work Phone: 04-30-2022 09:01-0400 Diastolic blood pressure 69 mm[Hg] [employer] Kya Gonzalez [employer] Work Phone: [facility] Work Phone: 04-30-2022 09:01-0400 Heart rate 74 /min [employer] Kya Gonzalez [employer] Work Phone: [facility] Work Phone: 04-30-2022 09:01-0400 Respiratory rate 18 /min [employer] Kya Gonzalez [employer] Work Phone: [facility] Work Phone: 04-30-2022 09:01-0400 SaO2% (BldA) [Mass fraction] 100 % [employer] Kya Gonzalez [employer] Work Phone: [facility] Work Phone: 04-30-2022 09:01-0400 Systolic blood pressure 126 mm[Hg] [employer] Kya Gonzalez [employer] Work Phone: [facility] Work Phone: 04-16-2022 10:45-0400 Body height 167.64 cm Kya Gonzalez Work Phone: LD-Frborifixjtrgf-Bl mike Work Phone: 04-16-2022 10:45-0400 Body mass index (BMI) [Ratio] 20.66 kg/m2 Kya Gonzalez Work Phone: NH-Nqojfgobixlvmd-Hl mike Work Phone: 04-16-2022 10:45-0400 Body surface area Derived from formula 1.65 m2 Kya Gonzalez Work Phone: QH-Fvmrakpbnjdavz-Gr mike Work Phone: 04-16-2022 10:45-0400 Body weight 58.06 kg Kya Gonzalez Work Phone: YQ-Puzuqltgwqcfwt-Om mike Work Phone: 04-02-2022 09:01-0400 Body height 167.64 cm Kya Gonzalez Work Phone: HO-Eggxouneaiapzz-Jc yoly Work Phone: 04-02-2022 09:01-0400 Body mass index (BMI) [Ratio] 20.4 kg/m2 Kya Gonzalez Work Phone: DF-Gbfnfvzwoqwsud-Va yoly Work Phone: 04-02-2022 09:01-0400 Body surface area Derived from formula 1.65 m2 Kya Gonzalez Work Phone: EV-Jowtfbktcnybdc-Ls yoly Work Phone: 04-02-2022 09:01-0400 Body weight 57.33 kg Kya Gonzalez Work Phone: RH-Nbkbfuqfnjgplg-Vb yoly Work Phone: 03-28-2022 11:02-0400 Body height 162.56 cm [employer] Kya Gonzalez [employer] Work Phone: [facility] Work Phone: 03-28-2022 11:02-0400 Body weight 57.74 kg [employer] Kya Posadasa [employer] Work Phone: [facility] Work Phone: 03-27-2022 09:25-0400 Body mass index (BMI) [Ratio] 21.8 kg/m2 [employer] Kya Posadasa [employer] Work Phone: [facility] Work Phone: 03-27-2022 09:25-0400 Body temperature 97.9 [degF] [employer] Kya Gonzalez [employer] Work Phone: [facility] Work Phone: 03-27-2022 09:25-0400 Body weight 57.74 kg [employer] Kya Posadasa [employer] Work Phone: [facility] Work Phone: 03-27-2022 09:25-0400 Diastolic blood pressure 69 mm[Hg] [employer] Kya Posadasa [employer] Work Phone: [facility] Work Phone: 03-27-2022 09:25-0400 Heart rate 78 /min [employer] Kya Posadasa [employer] Work Phone: [facility] Work Phone: 03-27-2022 09:25-0400 Respiratory rate 20 /min [employer] Kya Posadasa [employer] Work Phone: [facility] Work Phone: 03-27-2022 09:25-0400 SaO2% (BldA) [Mass fraction] 100 % [employer] Kya Posadasa [employer] Work Phone: [facility] Work Phone: 03-27-2022 09:25-0400 Systolic blood pressure 116 mm[Hg] [employer] Kya Posadasa [employer] Work Phone: [facility] Work Phone: 02-27-2022 10:05-0400 Body temperature 97 [degF] [employer] Kya Posadasa [employer] Work Phone: [facility] Work Phone: 02-27-2022 10:05-0400 Body weight 57.6 kg [employer] Kya Posadasa [employer] Work Phone: [facility] Work Phone: 02-27-2022 10:05-0400 Heart rate 71 /min [employer] Kya Posadasa [employer] Work Phone: [facility] Work Phone: 02-27-2022 10:05-0400 Respiratory rate 18 /min [employer] Kya Gonzalez [employer] Work Phone: [facility] Work Phone: 02-27-2022 10:05-0400 SaO2% (BldA) [Mass fraction] 100 % [employer] Kya Gonzalez [employer] Work Phone: [facility] Work Phone: 02-15-2022 12:03-0400 Body height 170.18 cm Caridad Gomez [employer] [facility] Work Phone: 02-15-2022 12:03-0400 Body mass index (BMI) [Ratio] 19.48 kg/m2 Craidad Gomez LPN [facility]; [facility] [...] (BldA) [Mass fraction] 98 % Caridad Gomez [employer] [facility]; [facility] Work Phone: Comment on above: Room air 02-15-2022 12:03-0400 Systolic blood pressure 104 mm[Hg] Caridad Gomez [employer] [facility]; [facility] Work Phone: Comment on above: Patient Position: Sitting; Cuff Location : Left Arm; Cuff Size: Standard 02-14-2022 10:44-0400 Body height 162.56 cm [employer] Kya Posadasa [employer] Work Phone: [facility] Work Phone: 02-14-2022 10:44-0400 Body mass index (BMI) [Ratio] 21.8 kg/m2 [employer] Kya Posadasa [employer] Work Phone: [facility] Work Phone: 02-14-2022 10:38-0400 Body temperature 98.2 [degF] [employer] Kya Posadasa [employer] Work Phone: [facility] Work Phone: 02-14-2022 10:38-0400 Body weight 57.71 kg [employer] Kya Posadasa [employer] Work Phone: [facility] Work Phone: 02-14-2022 10:38-0400 Diastolic blood pressure 61 mm[Hg] [employer] Kya Posadasa [employer] Work Phone: [facility] Work Phone: 02-14-2022 10:38-0400 Heart rate 77 /min [employer] Kya Posadasa [employer] Work Phone: [facility] Work Phone: 02-14-2022 10:38-0400 Respiratory rate 17 /min [employer] Kya Posadasa [employer] Work Phone: [facility] Work Phone: 02-14-2022 10:38-0400 SaO2% (BldA) [Mass fraction] 100 % [employer] Kya Gonzalez [employer] Work Phone: [facility] Work Phone: 02-14-2022 10:38-0400 Systolic blood pressure 107 mm[Hg] [employer] Kya Gonzalez [employer] Work Phone: [facility] Work Phone: 02-12-2022 11:25-0400 Body height 167.64 cm Kya Gonzalez Work Phone: DC-Pxrtrrnmsgbizq-Fu mike Work Phone: 02-12-2022 11:25-0400 Body mass index (BMI) [Ratio] 20.4 kg/m2 Kya Gonzalez Work Phone: JY-Dymcyknsjvhwhp-Qd mike Work Phone: 02-12-2022 11:25-0400 Body surface area Derived from formula 1.65 m2 Kya Gonzalez Work Phone: IZ-Cmlvzrnoavpdha-Ol mike Work Phone: 02-12-2022 11:25-0400 Body weight 57.33 kg Kya Gonzalez Work Phone: OL-Fvzxcuoyxjfjnf-Hs mike Work Phone: 02-06-2022 08:50-0400 Body mass index (BMI) [Ratio] 20.4 kg/m2 [employer] Kya Gonzalez [employer] Work Phone: [facility] Work Phone: 02-06-2022 08:50-0400 Body temperature 97.8 [degF] [employer] Kya Gonzalez [employer] Work Phone: [facility] Work Phone: 02-06-2022 08:50-0400 Body weight 57.4 kg [employer] Kya Gonzalez [employer] Work Phone: [facility] Work Phone: 02-06-2022 08:50-0400 Diastolic blood pressure 69 mm[Hg] [employer] Kya Posadasa [employer] Work Phone: [facility] Work Phone: 02-06-2022 08:50-0400 Heart rate 69 /min [employer] Kya Josefaesa [employer] Work Phone: [facility] Work Phone: 02-06-2022 08:50-0400 Respiratory rate 17 /min [employer] Kya Posadasa [employer] Work Phone: [facility] Work Phone: 02-06-2022 08:50-0400 SaO2% (BldA) [Mass fraction] 700 % [employer] Kya Posadasa [employer] Work Phone: [facility] Work Phone: 02-06-2022 08:50-0400 Systolic blood pressure 127 mm[Hg] [employer] Kya Posadasa [employer] Work Phone: [facility] Work Phone: 02-05-2022 09:38-0400 Body weight 57.6 kg [employer] Kya Posadasa [employer] Work Phone: [facility] 01-31-2022 08:40-0400 Body mass index (BMI) [Ratio] 20.2 kg/m2 [employer] Kya Posadasa [employer] Work Phone: [facility] Work Phone: 01-31-2022 08:40-0400 Body temperature 97.7 [degF] [employer] Kya Riveroesa [employer] Work Phone: [facility] Work Phone: 01-31-2022 08:40-0400 Body weight 56.75 kg [employer] Kya Josefaesa [employer] Work Phone: [facility] Work Phone: 01-31-2022 08:40-0400 Diastolic blood pressure 69 mm[Hg] [employer] Kya Posadasa [employer] Work Phone: [facility] Work Phone: 01-31-2022 08:40-0400 Heart rate 66 /min [employer] Kya Posadasa [employer] Work Phone: [facility] Work Phone: 01-31-2022 08:40-0400 Respiratory rate 18 /min [employer] Kya Posadasa [employer] Work Phone: [facility] Work Phone: 01-31-2022 08:40-0400 SaO2% (BldA) [Mass fraction] 99 % [employer] Kya Posadasa [employer] Work Phone: [facility] Work Phone: 01-31-2022 08:40-0400 Systolic blood pressure 119 mm[Hg] [employer] Kya Posadasa [employer] Work Phone: [facility] Work Phone: 01-25-2022 10:29-0400 Body temperature 98.2 [degF] [employer] Kya Posadasa [employer] Work Phone: [facility] Work Phone: 01-25-2022 10:29-0400 Diastolic blood pressure 74 mm[Hg] [employer] Kya Posadasa [employer] Work Phone: [facility] Work Phone: 01-25-2022 10:29-0400 Heart rate 69 /min [employer] Kya Posadasa [employer] Work Phone: [facility] Work Phone: 01-25-2022 10:29-0400 Respiratory rate 18 /min [employer] Kya Posadasa [employer] Work Phone: [facility] Work Phone: 01-25-2022 10:29-0400 SaO2% (BldA) [Mass fraction] 100 % [employer] Kya Gonzalez [employer] Work Phone: [facility] Work Phone: 01-25-2022 10:29-0400 Systolic blood pressure 126 mm[Hg] [employer] Kya Gonzalez [employer] Work Phone: [facility] Work Phone: 01-25-2022 05:43-0400 Body weight 56.6 kg [employer] Kya Posadasa [employer] Work Phone: [facility] Work Phone: 01-24-2022 10:30-0400 Body mass index (BMI) [Ratio] 19.7 kg/m2 [employer] Kya Posadasa [employer] Work Phone: [facility] Work Phone: 01-24-2022 10:30-0400 Body temperature 98.1 [degF] [employer] Kya Gonzalez [employer] Work Phone: [facility] Work Phone: 01-24-2022 10:30-0400 Body weight 55.42 kg [employer]C Kya Gonzalez [employer] Work Phone: [facility] Work Phone: 01-24-2022 10:30-0400 Diastolic blood pressure 61 mm[Hg] [employer]C Kya Posadasa [employer] Work Phone: [facility] Work Phone: 01-24-2022 10:30-0400 Heart rate 73 /min [employer] Kya Gonzalez [employer] Work Phone: [facility] Work Phone: 01-24-2022 10:30-0400 Respiratory rate 16 /min [employer] Kya Posadasa [employer] Work Phone: [facility] Work Phone: 01-24-2022 10:30-0400 SaO2% (BldA) [Mass fraction] 95 % [employer] Kya Ciesa [employer] Work Phone: [facility] Work Phone: 01-24-2022 10:30-0400 Systolic blood pressure 101 mm[Hg] [employer]C Kya Gonzalez [employer] Work Phone: [facility] Work Phone: 01-24-2022 10:30-0400 Body height 167.64 cm [employer]ER [employer]C Kya Gonzalez [employer] Work Phone: [facility] Work Phone: 01-24-2022 10:30-0400 Body mass index (BMI) [Ratio] 19.7 kg/m2 [employer] Kya Gonzalez [employer] Work Phone: [facility] Work Phone: 01-24-2022 10:30-0400 Body temperature 98.1 [degF] [employer] Kya Gonzalez [employer] Work Phone: [facility] Work Phone: 01-24-2022 10:30-0400 Body weight 55.42 kg [employer] Kya Gonzalez [employer] Work Phone: [facility] Work Phone: 01-24-2022 10:30-0400 Diastolic blood pressure 61 mm[Hg] [employer] Kya Gonzalez [employer] Work Phone: [facility] Work Phone: 01-24-2022 10:30-0400 Heart rate 73 /min [employer] Kya Gonzalez [employer] Work Phone: [facility] Work Phone: 01-24-2022 10:30-0400 Respiratory rate 16 /min [employer] Kya Gonzalez [employer] Work Phone: [facility] Work Phone: 01-24-2022 10:30-0400 SaO2% (BldA) [Mass fraction] 95 % [employer] Kya Gonzalez [employer] Work Phone: [facility] Work Phone: 01-24-2022 10:30-0400 Systolic blood pressure 101 mm[Hg] [employer] Kya Posadasa [employer] Work Phone: [facility] Work Phone: 01-23-2022 21:34-0400 Body temperature 98 [degF] [employer] Kya Riveroesa [employer] Work Phone: [facility] Work Phone: 01-23-2022 21:34-0400 Diastolic blood pressure 66 mm[Hg] [employer] Kya Ciesa [employer] Work Phone: [facility] Work Phone: 01-23-2022 21:34-0400 Heart rate 72 /min [employer] Kya Riveroesa [employer] Work Phone: [facility] Work Phone: 01-23-2022 21:34-0400 Respiratory rate 18 /min [employer] Kya Posadasa [employer] Work Phone: [facility] Work Phone: 01-23-2022 21:34-0400 SaO2% (BldA) [Mass fraction] 100 % [employer] Kya Posadasa [employer] Work Phone: [facility] Work Phone: 01-23-2022 21:34-0400 Systolic blood pressure 115 mm[Hg] [employer] Kya Riveroesa [employer] Work Phone: [facility] Work Phone: 01-23-2022 11:23-0400 Body height 167.64 cm [employer] Kya Riveroesa [employer] Work Phone: [facility] Work Phone: 01-23-2022 11:23-0400 Body weight 56.7 kg [employer] Kya Riveroesa [employer] Work Phone: [facility] Work Phone: 01-22-2022 22:45-0400 Body mass index (BMI) [Ratio] 20.1 kg/m2 [employer] Kya Posadasa [employer] Work Phone: [facility] Work Phone: 01-17-2022 11:57-0400 Body temperature 98 [degF] [employer] Kya Posadasa [employer] Work Phone: [facility] Work Phone: 01-17-2022 11:57-0400 Diastolic blood pressure 70 mm[Hg] [employer] Kya Riveroesa [employer] Work Phone: [facility] Work Phone: 01-17-2022 11:57-0400 Heart rate 66 /min [employer] Kya Posadasa [employer] Work Phone: [facility] Work Phone: 01-17-2022 11:57-0400 Respiratory rate 16 /min [employer] Kya Posadasa [employer] Work Phone: [facility] Work Phone: 01-17-2022 11:57-0400 SaO2% (BldA) [Mass fraction] 100 % [employer] Kya Posadasa [employer] Work Phone: [facility] Work Phone: 01-17-2022 11:57-0400 Systolic blood pressure 127 mm[Hg] [employer] Kya Posadasa [employer] Work Phone: [facility] Work Phone: 01-17-2022 11:57-0400 Body temperature 98 [degF] [employer] Kya Ciesa [employer] Work Phone: [facility] Work Phone: 01-17-2022 11:57-0400 Diastolic blood pressure 70 mm[Hg] [employer] Kya Riveroesa [employer] Work Phone: [facility] Work Phone: 01-17-2022 11:57-0400 Heart rate 66 /min [employer] Kya Posadasa [employer] Work Phone: [facility] Work Phone: 01-17-2022 11:57-0400 Respiratory rate 16 /min [employer] Kya oPsadasa [employer] Work Phone: [facility] Work Phone: 01-17-2022 11:57-0400 SaO2% (BldA) [Mass fraction] 100 % [employer] Kya Posadasa [employer] Work Phone: [facility] Work Phone: 01-17-2022 11:57-0400 Systolic blood pressure 127 mm[Hg] [employer] Kya Posadasa [employer] Work Phone: [facility] Work Phone: 01-17-2022 09:41-0400 Body mass index (BMI) [Ratio] 20.2 kg/m2 [employer] Kya Posadasa [employer] Work Phone: [facility] 01-17-2022 09:41-0400 Body weight 55.33 kg [employer] Kya Posadasa [employer] Work Phone: [facility] Work Phone: 01-17-2022 09:26-0400 Body mass index (BMI) [Ratio] 20.2 kg/m2 [employer] Kya Posadasa [employer] Work Phone: [facility] Work Phone: 01-17-2022 09:26-0400 Body temperature 98.5 [degF] [employer] Kya Posadasa [employer] Work Phone: [facility] Work Phone: 01-17-2022 09:26-0400 Body weight 55.33 kg [employer] Kya Posadasa [employer] Work Phone: [facility] Work Phone: 01-17-2022 09:26-0400 Diastolic blood pressure 76 mm[Hg] [employer] Kya Ciesa [employer] Work Phone: [facility] Work Phone: 01-17-2022 09:26-0400 Heart rate 69 /min [employer] Kya Posadasa [employer] Work Phone: [facility] Work Phone: 01-17-2022 09:26-0400 Respiratory rate 18 /min [employer] Kya Posadasa [employer] Work Phone: [facility] Work Phone: 01-17-2022 09:26-0400 SaO2% (BldA) [Mass fraction] 100 % [employer] Kya Posadasa [employer] Work Phone: [facility] Work Phone: 01-17-2022 09:26-0400 Systolic blood pressure 123 mm[Hg] [employer] Kya Posadasa [employer] Work Phone: [facility] Work Phone: 01-17-2022 09:26-0400 Body mass index (BMI) [Ratio] 20.2 kg/m2 [employer] Kya Posadasa [employer] Work Phone: [facility] Work Phone: 01-17-2022 09:26-0400 Body temperature 98.5 [degF] [employer] Kya Posadasa [employer] Work Phone: [facility] Work Phone: 01-17-2022 09:26-0400 Body weight 55.33 kg [employer] Kya Posadasa [employer] Work Phone: [facility] Work Phone: 01-17-2022 09:26-0400 Diastolic blood pressure 76 mm[Hg] [employer] Kya Posadasa [employer] Work Phone: [facility] Work Phone: 01-17-2022 09:26-0400 Heart rate 69 /min [employer] Kya Riveroesa [employer] Work Phone: [facility] Work Phone: 01-17-2022 09:26-0400 Respiratory rate 18 /min [employer] Kya Gonzalez [employer] Work Phone: [facility] Work Phone: 01-17-2022 09:26-0400 SaO2% (BldA) [Mass fraction] 100 % [employer] Kya Gonzalez [employer] Work Phone: [facility] Work Phone: 01-17-2022 09:26-0400 Systolic blood pressure 123 mm[Hg] [employer] Kya Gonzalez [employer] Work Phone: [facility] Work Phone: 01-15-2022 10:00-0400 Body height 167.64 cm Kya Gonzalez Work Phone: [facility]Bianihothumtbg[facility]v [facility] Work Phone: 01-15-2022 10:00-0400 Body mass index (BMI) [Ratio] 19.85 kg/m2 Kya Gonzalez Work Phone: EK-Kldkcayxzvfyvx-Cc [facility] Work Phone: 01-15-2022 10:00-0400 Body surface area Derived from formula 1.63 m2 Kya Gonzalez Work Phone: EO-Xevzvbrvwsjxoe-Hg [facility] Work Phone: 01-15-2022 10:00-0400 Body temperature 97.5 [degF] Kya Gonzalez Work Phone: LJ-Qohsktdkmbkiib-Ky [facility] Work Phone: 01-15-2022 10:00-0400 Body weight 55.79 kg Kya Gonzalez Work Phone: WS-Tswzrpndjnzjea-Zb [facility]ike Work Phone: 01-10-2022 12:27-0400 Body temperature 97.4 [degF] [employer] Kya Gonzalez [employer] Work Phone: [facility] 01-10-2022 12:27-0400 Diastolic blood pressure 61 mm[Hg] [employer] Kya Posadasa [employer] Work Phone: [facility] 01-10-2022 12:27-0400 Heart rate 64 /min [employer] Kya Posadasa [employer] Work Phone: [facility] 01-10-2022 12:27-0400 Respiratory rate 18 /min [employer] Kya Gonzalez [employer] Work Phone: [facility] 01-10-2022 12:27-0400 SaO2% (BldA) [Mass fraction] 98 % [employer] Kya Gonzalez [employer] Work Phone: [facility] 01-10-2022 12:27-0400 Systolic blood pressure 118 mm[Hg] [employer] Kya Posadasa [employer] Work Phone: [facility] 01-10-2022 10:32-0400 Body height 165.1 cm [employer] Kya Posadasa [employer] Work Phone: [facility] Work Phone: 01-10-2022 10:32-0400 Body mass index (BMI) [Ratio] 20.8 kg/m2 [employer] Kya Gonzalez [employer] Work Phone: [facility] Work Phone: 01-10-2022 10:32-0400 Body weight 56.78 kg [employer] Kya Gonzalez [employer] Work Phone: [facility] Work Phone: 01-10-2022 09:15-0400 Body mass index (BMI) [Ratio] 20.8 kg/m2 [employer] Kya Posadasa [employer] Work Phone: [facility] Work Phone: 01-10-2022 09:15-0400 Body temperature 98.1 [degF] [employer] Kya Posadasa [employer] Work Phone: [facility] Work Phone: 01-10-2022 09:15-0400 Body weight 56.78 kg [employer] Kya Posadasa [employer] Work Phone: [facility] Work Phone: 01-10-2022 09:15-0400 Diastolic blood pressure 67 mm[Hg] [employer] Kya Ciesa [employer] Work Phone: [facility] Work Phone: 01-10-2022 09:15-0400 Heart rate 67 /min [employer] Kya Ciesa [employer] Work Phone: [facility] Work Phone: 01-10-2022 09:15-0400 Respiratory rate 16 /min [employer] Kya Ciesa [employer] Work Phone: [facility] Work Phone: 01-10-2022 09:15-0400 Systolic blood pressure 121 mm[Hg] [employer] Kya Riveroesa [employer] Work Phone: [facility] Work Phone: 01-10-2022 09:15-0400 Body mass index (BMI) [Ratio] 20.8 kg/m2 [employer] Kya Riveroesa [employer] Work Phone: [facility] Work Phone: 01-10-2022 09:15-0400 Body temperature 98.1 [degF] [employer] Kya Riveroesa [employer] Work Phone: [facility] Work Phone: 01-10-2022 09:15-0400 Body weight 56.78 kg [employer] Kya Ciesa [employer] Work Phone: [facility] Work Phone: 01-10-2022 09:15-0400 Diastolic blood pressure 67 mm[Hg] [employer] Kya Ciesa [employer] Work Phone: [facility] Work Phone: 01-10-2022 09:15-0400 Heart rate 67 /min [employer] Kya Posadasa [employer] Work Phone: [facility] Work Phone: 01-10-2022 09:15-0400 Respiratory rate 16 /min [employer] Kya Riveroesa [employer] Work Phone: [facility] Work Phone: 01-10-2022 09:15-0400 Systolic blood pressure 121 mm[Hg] [employer] Kya Posadasa [employer] Work Phone: [facility] Work Phone: 01-04-2022 08:57-0400 Body temperature 98.7 [degF] [employer] Kya Posadasa [employer] Work Phone: [facility] Work Phone: 01-04-2022 08:57-0400 Body weight 56.44 kg [employer] Kya Posadasa [employer] Work Phone: [facility] Work Phone: 01-04-2022 08:57-0400 Diastolic blood pressure 64 mm[Hg] [employer] Kya Posadasa [employer] Work Phone: [facility] Work Phone: 01-04-2022 08:57-0400 Heart rate 70 /min [employer] Kya Riveroesa [employer] Work Phone: [facility] Work Phone: 01-04-2022 08:57-0400 Respiratory rate 14 /min [employer] Kya Posadasa [employer] Work Phone: [facility] Work Phone: 01-04-2022 08:57-0400 SaO2% (BldA) [Mass fraction] 93 % [employer] Kya Posadasa [employer] Work Phone: [facility] Work Phone: 01-04-2022 08:57-0400 Systolic blood pressure 118 mm[Hg] [employer] Kya Gonzalez [employer] Work Phone: [facility] Work Phone: 01-04-2022 08:57-0400 Body temperature 98.7 [degF] [employer] Kya Posadasa [employer] Work Phone: [facility] Work Phone: 01-04-2022 08:57-0400 Body weight 56.44 kg [employer] Kya Posadasa [employer] Work Phone: [facility] Work Phone: 01-04-2022 08:57-0400 Diastolic blood pressure 64 mm[Hg] [employer] Kya Posadasa [employer] Work Phone: [facility] Work Phone: 01-04-2022 08:57-0400 Heart rate 70 /min [employer] Kya Posadasa [employer] Work Phone: [facility] Work Phone: 01-04-2022 08:57-0400 Respiratory rate 14 /min [employer] Kya Posadasa [employer] Work Phone: [facility] Work Phone: 01-04-2022 08:57-0400 SaO2% (BldA) [Mass fraction] 93 % [employer] Kya Posadasa [employer] Work Phone: [facility] Work Phone: 01-04-2022 08:57-0400 Systolic blood pressure 118 mm[Hg] [employer] Kya Posadasa [employer] Work Phone: [facility] Work Phone: 01-03-2022 09:38-0400 Body mass index (BMI) [Ratio] 21.1 kg/m2 [employer] Kya Posadasa [employer] Work Phone: [facility] Work Phone: 01-03-2022 09:38-0400 Body temperature 99.2 [degF] [employer] Kya Ciesa [employer] Work Phone: [facility] Work Phone: 01-03-2022 09:38-0400 Body weight 57.6 kg [employer] Kya Posadasa [employer] Work Phone: [facility] Work Phone: 01-03-2022 09:38-0400 Diastolic blood pressure 64 mm[Hg] [employer] Kya Posadasa [employer] Work Phone: [facility] Work Phone: 01-03-2022 09:38-0400 Heart rate 77 /min [employer] Kya Posadasa [employer] Work Phone: [facility] Work Phone: 01-03-2022 09:38-0400 Respiratory rate 18 /min [employer] Kya Posadasa [employer] Work Phone: [facility] Work Phone: 01-03-2022 09:38-0400 SaO2% (BldA) [Mass fraction] 99 % [employer] Kya Posadasa [employer] Work Phone: [facility] Work Phone: 01-03-2022 09:38-0400 Systolic blood pressure 123 mm[Hg] [employer] Kya Posadasa [employer] Work Phone: [facility] Work Phone: 01-03-2022 09:38-0400 Body mass index (BMI) [Ratio] 21.1 kg/m2 [employer] Kya Posadasa [employer] Work Phone: [facility] Work Phone: 01-03-2022 09:38-0400 Body temperature 99.2 [degF] [employer] Kya Posadasa [employer] Work Phone: [facility] Work Phone: 01-03-2022 09:38-0400 Body weight 57.6 kg [employer] Kya Posadasa [employer] Work Phone: [facility] Work Phone: 01-03-2022 09:38-0400 Diastolic blood pressure 64 mm[Hg] [employer] Kya Gonzalez [employer] Work Phone: [facility] Work Phone: 01-03-2022 09:38-0400 Heart rate 77 /min [employer] Kya Posadasa [employer] Work Phone: [facility] Work Phone: 01-03-2022 09:38-0400 Respiratory rate 18 /min [employer] Kya Posadasa [employer] Work Phone: [facility] Work Phone: 01-03-2022 09:38-0400 SaO2% (BldA) [Mass fraction] 99 % [employer] Kya Posadasa [employer] Work Phone: [facility] Work Phone: 01-03-2022 09:38-0400 Systolic blood pressure 123 mm[Hg] [employer] Kya Gonzalez [employer] Work Phone: [facility] Work Phone: 12-29-2021 15:44-0400 Body height 167.64 cm Kya Gonzalez Work Phone: ZI[facility]Uccgrkgaxgotlo-Dt [facility] Work Phone: 12-29-2021 15:44-0400 Body mass index (BMI) [Ratio] 20.51 kg/m2 Kya Gonzalez Work Phone: PJ-Otevbhefcsvkvx-Cl [facility] Work Phone: 12-29-2021 15:44-0400 Body surface area Derived from formula 1.65 m2 Kya Gonzalez Work Phone: WE-Awzxchelecuyot-Fo [facility] Work Phone: 12-29-2021 15:44-0400 Body weight 57.63 kg Kya Gonzalez Work Phone: XN-Kdjuwesggftqem-Ca [facility] Work Phone: 12-27-2021 08:59-0400 Body mass index (BMI) [Ratio] 20.5 kg/m2 [employer] Kya Posadasa [employer] Work Phone: [facility] Work Phone: 12-27-2021 08:59-0400 Body temperature 98.4 [degF] [employer] Kya Posadasa [employer] Work Phone: [facility] Work Phone: 12-27-2021 08:59-0400 Body weight 55.9 kg [employer] Kya Posadasa [employer] Work Phone: [facility] Work Phone: 12-27-2021 08:59-0400 Diastolic blood pressure 72 mm[Hg] [employer] Kya Riveroesa [employer] Work Phone: [facility] Work Phone: 12-27-2021 08:59-0400 Heart rate 70 /min [employer] Kya Riveroesa [employer] Work Phone: [facility] Work Phone: 12-27-2021 08:59-0400 Respiratory rate 22 /min [employer] Kya Posadasa [employer] Work Phone: [facility] Work Phone: 12-27-2021 08:59-0400 SaO2% (BldA) [Mass fraction] 96 % [employer] Kya Posadasa [employer] Work Phone: [facility] Work Phone: 12-27-2021 08:59-0400 Systolic blood pressure 138 mm[Hg] [employer] Kya Riveroesa [employer] Work Phone: [facility] Work Phone: 12-27-2021 08:59-0400 Body mass index (BMI) [Ratio] 20.5 kg/m2 [employer] Kya Ciesa [employer] Work Phone: [facility] Work Phone: 12-27-2021 08:59-0400 Body temperature 98.4 [degF] [employer] Kya Posadasa [employer] Work Phone: [facility] Work Phone: 12-27-2021 08:59-0400 Body weight 55.9 kg [employer] Kya Posadasa [employer] Work Phone: [facility] Work Phone: 12-27-2021 08:59-0400 Diastolic blood pressure 72 mm[Hg] [employer] Kya Posadasa [employer] Work Phone: [facility] Work Phone: 12-27-2021 08:59-0400 Heart rate 70 /min [employer] Kya Posadasa [employer] Work Phone: [facility] Work Phone: 12-27-2021 08:59-0400 Respiratory rate 22 /min [employer] Kya Posadasa [employer] Work Phone: [facility] Work Phone: 12-27-2021 08:59-0400 SaO2% (BldA) [Mass fraction] 96 % [employer] Kya Posadasa [employer] Work Phone: [facility] Work Phone: 12-27-2021 08:59-0400 Systolic blood pressure 138 mm[Hg] [employer] Kya Posadasa [employer] Work Phone: [facility] Work Phone: 12-20-2021 11:13-0400 Body temperature 98.3 [degF] [employer] Kya Posadasa [employer] Work Phone: [facility] Work Phone: 12-20-2021 11:13-0400 Heart rate 69 /min [employer] yKa Riveroesa [employer] Work Phone: [facility] Work Phone: 12-20-2021 11:13-0400 Respiratory rate 18 /min [employer] Kya Posadasa [employer] Work Phone: [facility] Work Phone: 12-20-2021 11:13-0400 SaO2% (BldA) [Mass fraction] 98 % [employer] Kya Posadasa [employer] Work Phone: [facility] Work Phone: 12-20-2021 11:13-0400 Body temperature 98.3 [degF] [employer] Kya Posadasa [employer] Work Phone: [facility] Work Phone: 12-20-2021 11:13-0400 Heart rate 69 /min [employer] Kya Posadasa [employer] Work Phone: [facility] Work Phone: 12-20-2021 11:13-0400 Respiratory rate 18 /min [employer] Kya Posadasa [employer] Work Phone: [facility] Work Phone: 12-20-2021 11:13-0400 SaO2% (BldA) [Mass fraction] 98 % [employer] Kya Posadasa [employer] Work Phone: [facility] Work Phone: 12-20-2021 10:44-0400 Body height 165.1 cm [employer] Kya Posadasa [employer] Work Phone: [facility] Work Phone: 12-20-2021 10:44-0400 Body mass index (BMI) [Ratio] 20.6 kg/m2 [employer] Kya Posadasa [employer] Work Phone: [facility] Work Phone: 12-20-2021 10:44-0400 Body weight 56.24 kg [employer] Kya Posadasa [employer] Work Phone: [facility] Work Phone: 12-20-2021 10:27-0400 Body temperature 98.3 [degF] [employer] Kya Gonzalez [employer] Work Phone: [facility] Work Phone: 12-20-2021 10:27-0400 Diastolic blood pressure 68 mm[Hg] [employer] Kya Gonzalez [employer] Work Phone: [facility] Work Phone: 12-20-2021 10:27-0400 Heart rate 69 /min [employer] Kya Gonzalez [employer] Work Phone: [facility] Work Phone: 12-20-2021 10:27-0400 Respiratory rate 18 /min [employer] Kya Gonzalez [employer] Work Phone: [facility] Work Phone: 12-20-2021 10:27-0400 SaO2% (BldA) [Mass fraction] 98 % [employer] Kya Gonzalez [employer] Work Phone: [facility] Work Phone: 12-20-2021 10:27-0400 Systolic blood pressure 118 mm[Hg] [employer] Kya Gonzalez [employer] Work Phone: [facility] Work Phone: 12-18-2021 15:55-0400 Body height 167.64 cm Kya Gonzalez Work Phone: SM-Bfeddlmdhjetbo-Uk [facility]ike Work Phone: 12-18-2021 15:55-0400 Body mass index (BMI) [Ratio] 19.89 kg/m2 Kya Gonzalez Work Phone: HT-Nzsmcbudcixdhj-Xe [facility]ike Work Phone: 12-18-2021 15:55-0400 Body surface area Derived from formula 1.63 m2 Kya Gonzalez Work Phone: DD-Cysqlwtgpogkts-Sl [facility]ike Work Phone: 12-18-2021 15:55-0400 Body weight 55.91 kg Kya Gonzalez Work Phone: WF-Mnszzbzxstasev-Wh mike Work Phone: 12-18-2021 08:53-0400 Body mass index (BMI) [Ratio] 20.2 kg/m2 [employer] Kya Posadasa [employer] Work Phone: [facility] Work Phone: 12-18-2021 08:53-0400 Body temperature 98.4 [degF] [employer] Kya Posadasa [employer] Work Phone: [facility] Work Phone: 12-18-2021 08:53-0400 Body weight 55.11 kg [employer] Kya Posadasa [employer] Work Phone: [facility] Work Phone: 12-18-2021 08:53-0400 Diastolic blood pressure 72 mm[Hg] [employer] Kya Posadasa [employer] Work Phone: [facility] Work Phone: 12-18-2021 08:53-0400 Heart rate 76 /min [employer] Kya Posadasa [employer] Work Phone: [facility] Work Phone: 12-18-2021 08:53-0400 Respiratory rate 18 /min [employer] Kya Posadasa [employer] Work Phone: [facility] Work Phone: 12-18-2021 08:53-0400 SaO2% (BldA) [Mass fraction] 97 % [employer] Kya Posadasa [employer] Work Phone: [facility] Work Phone: 12-18-2021 08:53-0400 Systolic blood pressure 135 mm[Hg] [employer] Kya Posadasa [employer] Work Phone: [facility] Work Phone: 12-18-2021 08:53-0400 Body mass index (BMI) [Ratio] 20.2 kg/m2 [employer] Kya Posadasa [employer] Work Phone: [facility] Work Phone: 12-18-2021 08:53-0400 Body temperature 98.4 [degF] [employer] Kya Posadasa [employer] Work Phone: [facility] Work Phone: 12-18-2021 08:53-0400 Body weight 55.11 kg [employer] Kya Posadasa [employer] Work Phone: [facility] Work Phone: 12-18-2021 08:53-0400 Diastolic blood pressure 72 mm[Hg] [employer] Kya Gonzalez [employer] Work Phone: [facility] Work Phone: 12-18-2021 08:53-0400 Heart rate 76 /min [employer] Kya Posadasa [employer] Work Phone: [facility] Work Phone: 12-18-2021 08:53-0400 Respiratory rate 18 /min [employer] Kya Gonzalez [employer] Work Phone: [facility] Work Phone: 12-18-2021 08:53-0400 SaO2% (BldA) [Mass fraction] 97 % [employer] Kya Posadasa [employer] Work Phone: [facility] Work Phone: 12-18-2021 08:53-0400 Systolic blood pressure 135 mm[Hg] [employer]-C Kya Posadasa [employer] Work Phone: [facility] Work Phone: 12-15-2021 10:53-0400 Body height 165.1 cm [employer]-C Kya Posadasa [employer] Work Phone: [facility] Work Phone: 12-15-2021 10:53-0400 Body mass index (BMI) [Ratio] 20.5 kg/m2 [employer]-C Kya Gonzalez [employer] Work Phone: [facility] Work Phone: 12-15-2021 10:53-0400 Body temperature 96.9 [degF] [employer]-C Kya Gonzalez [employer] Work Phone: [facility] Work Phone: 12-15-2021 10:53-0400 Body weight 55.79 kg LO[employer]ER [employer]-C Kya Gonzalez [employer] Work Phone: [facility] Work Phone: 12-15-2021 10:53-0400 Diastolic blood pressure 64 mm[Hg] LO[employer]-C Kya Posadasa [employer] Work Phone: [facility] Work Phone: 12-15-2021 10:53-0400 Heart rate 73 /min [employer]C Kya Posadasa [employer] Work Phone: [facility] Work Phone: 12-15-2021 10:53-0400 Respiratory rate 17 /min [employer]-C Kya Gonzalez [employer] Work Phone: [facility] Work Phone: 12-15-2021 10:53-0400 SaO2% (BldA) [Mass fraction] 99 % [employer]-C Kya Posadasa [employer] Work Phone: [facility] Work Phone: 12-15-2021 10:53-0400 Systolic blood pressure 131 mm[Hg] LO[employer]-C Kya Posadasa [employer] Work Phone: [facility] Work Phone: 12-15-2021 08:45-0400 Body height 170.18 cm Xavier Ponce [employer] [facility] Work Phone: 12-15-2021 08:45-0400 Body mass index (BMI) [Ratio] 19.48 kg/m2 Xavier Ponce [employer] [facility] Work [...] Standard 12-11-2021 11:34-0400 Body weight 53.97 kg [employer]-C Kya Gonzalez [employer] Work Phone: [facility] Work Phone: 12-10-2021 18:23-0400 Heart rate 70 /min [employer]C Kya Gonzalez [employer] Work Phone: [facility] Work Phone: 12-10-2021 18:23-0400 Respiratory rate 16 /min [employer]C Kya Posadasa [employer] Work Phone: [facility] Work Phone: 12-10-2021 18:23-0400 SaO2% (BldA) [Mass fraction] 99 % [employer]-C Kya Posadasa [employer] Work Phone: [facility] Work Phone: 12-10-2021 16:40-0400 Body height 167.64 cm LO[employer]ER [employer]-C Kya Posadasa [employer] Work Phone: [facility] Work Phone: 12-10-2021 16:40-0400 Body mass index (BMI) [Ratio] 19.7 kg/m2 [employer]-C Kya Posadasa [employer] Work Phone: [facility] Work Phone: 12-10-2021 16:40-0400 Body temperature 97.8 [degF] [employer]-C Kya Posadasa [employer] Work Phone: [facility] Work Phone: 12-10-2021 16:40-0400 Body weight 55.33 kg [employer]-C Kya Posadasa [employer] Work Phone: [facility] Work Phone: 12-10-2021 16:40-0400 Diastolic blood pressure 70 mm[Hg] LO[employer]-C Kya Riveroesa [employer] Work Phone: [facility] Work Phone: 12-10-2021 16:40-0400 Systolic blood pressure 144 mm[Hg] LO[employer]-C Kya Riveroesa [employer] Work Phone: [facility] Work Phone: 12-07-2021 14:56-0400 Body weight 54.54 kg [employer]-C Kya Riveroesa [employer] Work Phone: [facility] Work Phone: 12-07-2021 14:56-0400 Body weight 54.54 kg [employer]C Kya Posadasa [employer] Work Phone: [facility] Work Phone: 12-07-2021 14:25-0400 Body temperature 98.2 [degF] [employer]-C Kya Posadasa [employer] Work Phone: [facility] Work Phone: 12-07-2021 14:25-0400 Diastolic blood pressure 76 mm[Hg] [employer]-C Kya Posadasa [employer] Work Phone: [facility] Work Phone: 12-07-2021 14:25-0400 Heart rate 75 /min [employer]C Kya Posadasa [employer] Work Phone: [facility] Work Phone: 12-07-2021 14:25-0400 Respiratory rate 14 /min [employer]C Kya Posadasa [employer] Work Phone: [facility] Work Phone: 12-07-2021 14:25-0400 SaO2% (BldA) [Mass fraction] 100 % [employer]C Kya Posadasa [employer] Work Phone: [facility] Work Phone: 12-07-2021 14:25-0400 Systolic blood pressure 132 mm[Hg] [employer]-C Kya Posadasa [employer] Work Phone: [facility] Work Phone: 12-07-2021 14:25-0400 Body temperature 98.2 [degF] LO[employer]-C Kya Riveroesa [employer] Work Phone: [facility] Work Phone: 12-07-2021 14:25-0400 Diastolic blood pressure 76 mm[Hg] LO[employer]-C Kya Riveroesa [employer] Work Phone: [facility] Work Phone: 12-07-2021 14:25-0400 Heart rate 75 /min [employer]C Kya Riveroesa [employer] Work Phone: [facility] Work Phone: 12-07-2021 14:25-0400 Respiratory rate 14 /min [employer]C Kya Riveroesa [employer] Work Phone: [facility] Work Phone: 12-07-2021 14:25-0400 SaO2% (BldA) [Mass fraction] 100 % [employer]-C Kya Posadasa [employer] Work Phone: [facility] Work Phone: 12-07-2021 14:25-0400 Systolic blood pressure 132 mm[Hg] [employer]-C Kya Riveroesa [employer] Work Phone: [facility] Work Phone: 12-05-2021 15:28-0400 Diastolic blood pressure 91 mm[Hg] Kya Posadasa Other Phone: [facility] 12-05-2021 15:28-0400 Heart rate 69 /min Kya Riveroesa Other Phone: [facility] 12-05-2021 15:28-0400 Respiratory rate 18 /min Kya Riveroesa Other Phone: [facility] 12-05-2021 15:28-0400 SaO2% (BldA) [Mass fraction] 98 % Kya Riveroesa Other Phone: [facility] 12-05-2021 15:28-0400 Systolic blood pressure 133 mm[Hg] Kya Riveroesa Other Phone: [facility] 12-05-2021 13:05-0400 Body height 170.1 cm Kya Riveroesa Other Phone: [facility] 12-05-2021 13:05-0400 Body temperature 96.62 [degF] Kya Riveroesa Other Phone: [facility] 12-05-2021 13:05-0400 Body weight 55.8 kg Kya Gonzalez Other Phone: [facility] 12-04-2021 15:57-0400 Body height 167.64 cm Kya Gonzalez Work Phone: OB-Wxmrilqcamqpyy-Ov mike Work Phone: 12-04-2021 15:57-0400 Body mass index (BMI) [Ratio] 19.91 kg/m2 Kya Gonzalez Work Phone: KE-Qkoazicepvjrxb-Ts ron Work Phone: 12-04-2021 15:57-0400 Body surface area Derived from formula 1.63 m2 Kya Gonzalez Work Phone: UX-Iigkadpnipzpjx-Vp ron Work Phone: 12-04-2021 15:57-0400 Body weight 55.97 kg Kya Gonzalez Work Phone: BC-Hgryfjuozziefl-On ron Work Phone: 11-29-2021 13:06-0500 Body height 167.64 cm Kya Gonzalez Work Phone: RC-Dtazuzgxafbtpl-Bx yoly Work Phone: 11-29-2021 13:06-0500 Body mass index (BMI) [Ratio] 20.19 kg/m2 Kya Gonzalez Work Phone: AN-Fgfvealldxoghu-Ht idman Work Phone: 11-29-2021 13:06-0500 Body surface area Derived from formula 1.64 m2 Kya Gonzalez Work Phone: WS-Jcsjjfrnbvutwx-Ha idman Work Phone: 11-29-2021 13:06-0500 Body temperature 97.5 [degF] Kya Gonzalez Work Phone: IP-Kzbilkkfsnqwly-Md idman Work Phone: 11-29-2021 13:06-0500 Body weight 56.75 kg Kya Gonzalez Work Phone: ZC-Wllbnfoofdmwiq-Sv yoly Work Phone: 11-07-2021 17:58-0500 SaO2% (BldA) [Mass fraction] 100 % Kya Gonzalez Work Phone: QB-Okgtgucmtjzjin-Pf ron Work Phone: 11-07-2021 15:25-0500 SaO2% (BldA) [Mass fraction] 100 % Kya Gonzalez Work Phone: GY-Ztqinvwlxhrvjp-Xl ron Work Phone: 11-01-2021 08:16-0500 Body height 167.64 cm Kya Gonzalez Work Phone: HU-Qcrzofmavmlmvv-Ox burban Work Phone: 11-01-2021 08:16-0500 Body mass index (BMI) [Ratio] 19.09 kg/m2 Kya Gonzalez Work Phone: GH-Iabaghigjzxgnz-Tq burban Work Phone: 11-01-2021 08:16-0500 Body surface area Derived from formula 1.6 m2 Kya Gonzalez Work Phone: KA-Olhgqeetkxaonj-Fk [place]ban Work Phone: 11-01-2021 08:16-0500 Body temperature 95.5 [degF] Kya Gonzalez Work Phone: BL-Byfxjrxggbbtxw-Dr [place] Work Phone: 11-01-2021 08:16-0500 Body weight 53.64 kg Kya Gonzalez Work Phone: CQ-Djwifrpyygfuxk-Kf burban Work Phone: 10-16-2021 12:58-0500 Body height 167.64 cm Kya Gonzalez Work Phone: LT-Vpxecuvqpfielb-Ob mike Work Phone: 10-16-2021 12:58-0500 Body mass index (BMI) [Ratio] 20.34 kg/m2 Kya Gonzalez Work Phone: TV-Bivzcenvyryrzm-Os mike Work Phone: 10-16-2021 12:58-0500 Body surface area Derived from formula 1.64 m2 Kya Gonzalez Work Phone: LG-Ayedebzefzqzpt-Cc mike Work Phone: 10-16-2021 12:58-0500 Body weight 57.15 kg Kya Gonzalez Work Phone: TB-Wgnsqcqmzzblsv-Wk mike Work Phone: 09-23-2021 00:06-0500 Body weight 58.96 kg [employer]-C Kya Gonzalez [employer] Work Phone: [facility] Work Phone: 08-23-2021 07:11-0500 Body mass index (BMI) [Ratio] 22.3 kg/m2 [employer]-C Kya Gonzalez [employer] Work Phone: [facility] Work Phone: 08-23-2021 07:11-0500 Body temperature 98 [degF] [employer]-C Kya Gonzalez [employer] Work Phone: [facility] Work Phone: 08-23-2021 07:11-0500 Body weight 58.96 kg [employer]-C Kya Gonzalez [employer] Work Phone: [facility] Work Phone: 08-23-2021 07:11-0500 Diastolic blood pressure 88 mm[Hg] [employer]-C Kya Gonzalez [employer] Work Phone: [facility] Work Phone: 08-23-2021 07:11-0500 Heart rate 95 /min [employer]-C Kya Gonzalez [employer] Work Phone: [facility] Work Phone: 08-23-2021 07:11-0500 Systolic blood pressure 152 mm[Hg] LO[employer]-C Kya Gonzalez [employer] Work Phone: [facility] Work Phone: 08-15-2021 09:45-0500 Body height 170.18 cm Caridad Gomez LPN [facility] Work Phone: 08-15-2021 09:45-0500 Body mass index (BMI) [Ratio] 20.09 kg/m2 Caridad Gomez LPN [facility]; [facility] Work Phone: 08-15-2021 09:45-0500 Body surface area Derived from formula 1.67 m2 Caridad Gomez LPN [facility]; [...] 08-15-2021 09:45-0500 Systolic blood pressure 170 mm[Hg] Caridadcolumba Hufermin LEYVA [facility]; [facility] Work [...] Body mass index (BMI) [Ratio] 20 kg/m2 [employer]-Damaris Gonzalez NP Work Phone: [facility] Work Phone: 12-02-2020 13:20-0500 BMI (Body Mass [...] air 11-28-2020 14:34-0500 Body temperature 98.6 [degF] [employer]-C Kya Gonzalez [employer] Work Phone: [facility] Work Phone: 11-28-2020 14:34-0500 Body weight 58.05 kg [employer]-C Kya Posadasa [employer] Work Phone: [facility] Work Phone: 11-28-2020 14:34-0500 Diastolic blood pressure 84 mm[Hg] [employer]-C Kya Posadasa [employer] Work Phone: [facility] Work Phone: 11-28-2020 14:34-0500 Heart rate 76 /min [employer]C Kya Posadasa [employer] Work Phone: [facility] Work Phone: 11-28-2020 14:34-0500 Respiratory rate 16 /min [employer]-C Kya Posadasa [employer] Work Phone: [facility] Work Phone: 11-28-2020 14:34-0500 SaO2% (BldA) [Mass fraction] 99 % [employer]-C Kya Posadasa [employer] Work Phone: [facility] Work Phone: 11-28-2020 14:34-0500 Systolic blood pressure 149 mm[Hg] [employer]-C Kya Gonzalez [employer] Work Phone: [facility] Work Phone: 08-29-2020 14:50-0500 BMI (Body Mass Index) 23.02 kg/m2 Xavier [facility] Work Phone: 08-29-2020 14:50-0500 Body weight 66.68 kg [facility] Work Phone: 08-29-2020 14:50-0500 BSA (Body Surface Area) 1.77 m2 [facility] Work Phone: 08-29-2020 14:50-0500 Height 170.18 cm Xavier [facility] Work Phone: 06-29-2020 13:46-0400 BMI (Body Mass Index) 23.02 kg/m2 Kya Posadasa [employer] Work Phone: [facility] Work Phone: 06-29-2020 13:46-0400 Body Temperature 96.9 [degF] Kya Posadasa [employer] Work Phone: [facility] Work Phone: 06-29-2020 13:46-0400 Body weight 66.68 kg Kya Posadasa [employer] Work Phone: [facility] Work Phone: 06-29-2020 13:46-0400 BP Diastolic 80 mm[Hg] Kya Posadasa [employer] Work Phone: [facility] Work Phone: Comment on above: Patient Position: Supine; Cuff Location: Right Arm; Cuff Size: Standard 06-29-2020 13:46-0400 BP Systolic 132 mm[Hg] Kya Posadasa [employer] Work Phone: [facility] Work Phone: Comment on above: Patient Position: Supine; Cuff Location: Right Arm; Cuff Size: Standard 06-29-2020 13:46-0400 BSA (Body Surface Area) 1.77 m2 Kya Gonzalez [employer] Work Phone: [facility] Work Phone: 06-29-2020 13:46-0400 Height 170.18 cm Kya Gonzalez [employer] Work Phone: [facility] Work Phone: 06-29-2020 13:46-0400 Pulse (Heart Rate) 82 /min Kya Gonzalez [employer] Work Phone: [facility] Work Phone: Comment on above: Pattern: Regular 06-29-2020 13:46-0400 Pulse Oximetry 100 % Kya Gonzalez [facility] Work Phone: Comment on above: Room air 06-29-2020 13:46-0400 SaO2% (BldA) [Mass fraction] 100 % Kya Gonzalez [employer] Work Phone: [facility]; [facility] Work Phone: Comment on above: Room air 04-14-2020 13:54-0400 BMI (Body Mass Index) 23.02 kg/m2 Caridad Gomez [employer] [facility] Work Phone: 04-14-2020 13:54-0400 Body weight 66.68 kg Caridad Gomez [employer] [facility] Work Phone: 04-14-2020 13:54-0400 BSA (Body Surface Area) 1.77 m2 Caridad Gomez [employer] [facility] Work Phone: 04-14-2020 13:54-0400 Height 170.18 cm Caridad Gomez [employer] [facility] Work Phone: 12-14-2019 11:11-0400 Body Temperature 97.7 [degF] Kya Gonzalez [employer] Work Phone: [facility] Work Phone: 12-14-2019 10:50-0400 BMI (Body Mass Index) 23.02 kg/m2 Xavier Ponce [facility] Work Phone: 12-14-2019 10:50-0400 Body weight 66.68 kg Xavier Ponce [facility] Work Phone: 12-14-2019 10:50-0400 BSA (Body Surface Area) 1.77 m2 Xavier Ponce [facility] Work Phone: 12-14-2019 10:50-0400 Height 170.18 cm Xavier Ponce [facility] Work Phone: 06-15-2019 17:18-0400 BMI (Body Mass Index) 20.26 kg/m2 Rachel Brooks FK-Thjqtgzwjtrtdd-Wz min [place] [address] Work Phone: 06-15-2019 17:18-0400 Body weight 56.93 kg Rachel Brooks MG-Otolaryngolog y-Ad min [place] [address] Work Phone: 06-15-2019 17:18-0400 BP Diastolic 77 mm[Hg] Rachel Brooks MG-Otolaryngolog y-Ad min [place] [address] Work Phone: 06-15-2019 17:18-0400 BP Systolic 145 mm[Hg] Rachel Brooks MG-Otolaryngolog y-Ad min [place] [address] Work Phone: 06-15-2019 17:18-0400 BSA (Body Surface Area) 1.64 m2 Rachel Brooks VX-Ovtmhsfgwejemb-Aa min [place] [address] Work Phone: 06-15-2019 17:18-0400 Height 167.64 cm Rachel Brooks MG-Otolaryngolog y-Ad min [place] [address] Work Phone: 06-15-2019 17:18-0400 Pulse (Heart Rate) 82 /min Rachel Brooks MG-Otolaryngo logy-Ad min [place] [address] Work Phone: 06-15-2019 17:18-0400 Respiratory Rate 18 /min Rachel Brooks MG-Otolaryngolo gy-Ad min [place] [address] Work Phone: 01-19-2019 11:54-0400 BMI (Body Mass Index) 22.84 kg/m2 Rachel Brooks SZ-Bumlcqvgtcqbrn-Ye min [place] [address] Work Phone: 01-19-2019 11:54-0400 BP Diastolic 87 mm[Hg] Rachel Brooks MG-Otolaryngolog y-Ad min [place] [address] Work Phone: 01-19-2019 11:54-0400 BP Systolic 180 mm[Hg] Rachel Brooks MG-Otolaryngolog y-Ad min [place] [address] Work Phone: 01-19-2019 11:54-0400 BSA (Body Surface Area) 1.73 m2 Rachel Brooks LU-Qhjsdsyplvtayf-Os min [place] [address] Work Phone: 01-19-2019 11:54-0400 Height 167.64 cm Rachel Brooks MG-Otolaryngolog y-Ad min [place] [address] Work Phone: 01-19-2019 11:54-0400 Pulse (Heart Rate) 91 /min Rachel Brooks MG-Otolaryngo logy-Ad min [place] [address] Work Phone: 01-19-2019 11:54-0400 Weight 64.18 kg Rachel Brooks MG-Otolaryngolog y-Ad min [place] [address] Work Phone: 01-02-2019 11:29-0400 BMI (Body Mass Index) 23.02 kg/m2 Xavier Ponce LPN [facility] Work Phone: 01-02-2019 11:29-0400 Body Temperature 99 [degF] Xavier Ponce LPN [facility] Work Phone: Comment on above: Method: Temporal 01-02-2019 11:29-0400 Body weight 66.68 kg Xavier Ponce LPN [facility] Work Phone: 01-02-2019 11:29-0400 BP Diastolic 82 mm[Hg] Xavier Ponce LPN [facility] Work Phone: Comment on above: Patient Position: Sitting; Cuff Location : Left Arm; Cuff Size: Standard 01-02-2019 11:29-0400 BP Systolic 144 mm[Hg] Xavier Ponce LPN [facility] Work Phone: Comment on above: Patient Position: Sitting; Cuff Location : Left Arm; Cuff Size: Standard 01-02-2019 11:29-0400 BSA (Body Surface Area) 1.77 m2 Xavier Ponce LPN [facility] Work Phone: 01-02-2019 11:29-0400 Height 170.18 cm Xavier Ponce LPN [facility] Work Phone: 01-02-2019 11:29-0400 Pulse (Heart Rate) 80 /min Xavier Ponce LPN [facility] Work Phone: Comment on above: Pattern: Regular 01-02-2019 11:29-0400 Pulse Oximetry 98 % Kya Monica [facility] Work Phone: Comment on above: Room air 01-02-2019 11:29-0400 Respiratory Rate 17 /min Xavier Ponce LPN [facility] Work Phone: Comment on above: Pattern: Unlabored 01-02-2019 11:29-0400 SaO2% (BldA) [Mass fraction] 98 % Xavier Ponce LPN [facility]; [facility] Work Phone: Comment on above: Room air 01-02-2019 11:29-0400 Weight 66.68 kg Kya Riverodanya [facility] Work Phone: 12-15-2018 14:23-0400 BMI (Body Mass Index) 23.02 kg/m2 Xavier Ponce LPN [facility] Work Phone: 12-15-2018 14:23-0400 Body Temperature 98.7 [degF] Xavier Ponce LPN [facility] Work Phone: Comment on above: Method: Temporal 12-15-2018 14:23-0400 Body weight 66.68 kg Xavier Ponce LPN [facility] Work Phone: 12-15-2018 14:23-0400 BP Diastolic 82 mm[Hg] Xavier Ponce LPN [facility] Work Phone: Comment on above: Patient Position: Sitting; Cuff Location : Left Arm; Cuff Size: Standard 12-15-2018 14:23-0400 BP Systolic 160 mm[Hg] Xavier Ponce LPN [facility] Work Phone: Comment on above: [...] 12-15-2018 14:23-0400 Pulse Oximetry 98 % Kya Gonzalez [facility] Work Phone: Comment on above: Room air 12-15-2018 14:23-0400 Respiratory Rate 18 /min Xavier Ponce LPN [facility] Work Phone: Comment on above: Pattern: Unlabored 12-15-2018 14:23-0400 SaO2% (BldA) [Mass fraction] 98 % Xavier Ponce LPN [facility]; [facility] Work Phone: Comment on above: Room air 12-15-2018 14:23-0400 Weight 66.68 kg Kya Monica [facility] Work Phone: Encounters Encounter Date Encounter Type Care Provider Facility Start: 06-28-2025 ambulatory Sadie Santiago Facility :[facility] Start: 06-10-2025 End: 06-10-2025 Office outpatient visit 40 minutes Dayami Jha MD Work Phone: [facility] Comment on above: History of malignant neoplasm of oral cavity (Primary Dx); 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 Santiago Sellers DO -Speech Therapy Work Phone: Start: 05-07-2025 In-person encounter Roman eli MD Work Phone: [place] Work Phone: Start: 05-07-2025 Visit out of hours Roman seay MD Work Phone: [facility]. Work Phone: Start: 04-15-2025 Non-patient / Non-visit Elliott Mijares nd DO -[facility] Start: 04-15-2025 End: 04-15-2025 Admission to same day surgery center Elliott Akhtar DO -Endoscopy Work Phone: Start: 04-15-2025 End: 04-15-2025 ambulatory Sadie Santiago NP-C Work Phone: -Endoscopy Start: 03-31-2025 ambulatory James Stephens Facili ty:[facility] Start: 03-31-2025 Non-patient / Non-visit Dr. Loretta villar MD -[facility] Start: 03-31-2025 End: 03-31-2025 ambulatory Sadie Sanitago [employer]-C Work Phone: -Pulmonary Services/Neurology Start: 03-31-2025 End: 03-31-[address] James Stephens DO -Pulmonary Services/Neurology Work Phone: Start: 03-31-2025 End: 03-31-2025 ambulatory Sadie Santiago Facility:[facility] Start: 03-25-[address] Santiago Sellers DO -Speech Therapy Work Phone: Start: 03-03-2025 ambulatory Sadie Santiago Facility :[facility] Start: 03-03-2025 Non-patient / Non-visit Dr. Loretta villar MD -[facility] Start: 03-03-2025 End: 03-03-2025 ambulatory Sadie Santiago [employer]-C Work Phone: [facility] Work Phone: Start: 03-03-2025 End: 03-03-[address] 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; Cancer of oral cavity (Multi); Tracheostomy dependence (Multi); Acquired hypothyroidism; Oropharyngeal dysphagia; Adverse effect of radiation therapy, subsequent encounter; Open wound of neck, subsequent encounter Start: 03-01-2025 End: 03-01-2025 ambulatory [facility] Start: 02-11-2025 End: 02-11-2025 Patient encounter procedure Elliott Akhtar DO [facility] Work Phone: Start: 02-11-2025 End: 02-11-2025 ambulatory Sadie Santiago Facility:[facility] Start: 02-02-2025 End: 02-20-[address] Santiago Sellers DO -Nutritional Services Work Phone: Start: 02-02-2025 End: 02-20-2025 ambulatory Sadie Santiago [employer]-C Work Phone: [facility] Work Phone: Start: 02-02-2025 End: 02-02-[address] Santiago Sellers DO -[facility] Work Phone: Start: 02-02-2025 End: 02-02-2025 ambulatory Sadie Santiago LOADER [employer]INE [employer]ER-C Work Phone: [facility] Work Phone: Start: 01-20-[address] Santiago Sellers DO -Speech Therapy Work Phone: Start: 01-05-2025 End: 01-05-[address] Quincy Simpson MD -[facility] Work Phone: Start: 01-05-2025 End: 01-05-2025 ambulatory Sadie Jack Facility:[facility] Start: 12-30-[address] Santiago Sellers DO -Speech Therapy Work Phone: Start: 12-29-2024 End: 12-29-2024 ambulatory Sadie Santiago LOADER [employer]AZINE [employer]ER-C Work Phone: [facility] Work Phone: Start: 12-29-2024 End: 12-29-[address] Quincy Simpson MD -Cat Scan, [facility] Work Phone: Start: 12-29-2024 End: 12-29-2024 ambulatory Sadie [place] Facility:[facility] Start: 12-17-2024 End: 12-17-[address] Quincy Simpson MD Work Phone: [facility] Work Phone: Start: 12-17-2024 End: 12-17-[address] Santiago Sellers DO -Radiology, [facility] Work Phone: Start: 12-17-2024 End: 12-17-2024 ambulatory Sadie Jack Facility:[facility] Start: 12-16-[address] Santiago DUFFSpeech Therapy Work Phone: Start: 10-21-2024 ambulatory [facility] Start: 10-21-2024 Non-patient / Non-visit Elliott Mijares pratima DO -[facility] Start: 10-21-2024 End: 10-21-2024 Admission to same day surgery center Elliott Akhtar -Endoscopy Work Phone: Start: 10-21-2024 End: 10-21-2024 ambulatory [facility] Facility:[facility] Start: 10-20-2024 Encounter for other preprocedural examination Loretta Jade [facility] Start: 09-28-2024 End: 09-28-[address] Quincy Simpson MD -[facility] Work Phone: Start: 09-28-2024 End: 09-28-2024 ambulatory [facility] Start: 09-15-2024 ambulatory [facility] Start: 09-15-2024 Non-patient / Non-visit Loretta Jade NP-C -[facility] Start: 09-15-2024 End: 09-15-[address] Quincy Simpson MD -[facility] Work Phone: Start: 09-15-2024 End: 09-15-2024 ambulatory [facility] Facility:[facility] Start: 09-07-2024 End: 09-07-[address] 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 Quincy Simpson MD -Cat Scan, [facility] Work Phone: Start: 08-25-2024 End: 08-25-2024 ambulatory Sadie [place] Facility:[facility] Start: 08-14-2024 End: 08-14-2024 ambulatory [facility] Facility:[facility] Start: 08-06-2024 End: 08-22-2024 ambulatory [facility] Facility:[facility] Start: 08-06-2024 End: 08-06-2024 ambulatory [facility] Facility:[facility] Start: 04-13-2024 End: 04-13-2024 Office outpatient visit 25 minutes Rachel Brooks MD Work Phone: [facility] Comment on above: Oropharyngeal dyspha lizzie (Primary Dx); Sensorineural hearing loss (SNHL) of both ears; Acquired hypothyroidism; Cancer of oral cavity (Multi); 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); Adverse effect of radiation therapy, subsequent encounter; Tracheostomy dependence (Multi) Start: 02-03-2024 End: 02-03-2024 Office outpatient visit 25 minutes Rachel Brooks MD Work Phone: [facility] Comment on above: Oropharyngeal dyspha lizzie (Primary Dx); Sensorineural hearing loss (SNHL) of both ears; Cancer of oral cavity (Multi); 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); Adverse effect of radiation therapy, subsequent encounter Start: 11-01-2023 End: 11-01-2023 ambulatory LOAD[employer]-C Kya Gonzalez LOADER [employer]INE GRINDER Work Phone: [facility] Work Phone: Start: 11-01-2023 End: 11-01-2023 Discharged Recurring LO[employer]ER [employer]ER-C Kya Gonzalez LOADER [employer]INE GRINDER Work Phone: [facility]-Speech Therapy Work Phone: Start: 09-04-2023 End: 09-04-2023 ambulatory RACHEL BROOKS [facility] Start: 09-03-2023 Non-patient / Non-visit LO[employer]-C Mack Gonzalez LOADER [employer]AZINE GRINDER Work Phone: [facility] Start: 09-03-2023 End: 09-03-2023 Admission to same day surgery center [employer]-C Kya Gonzalez LOADER [employer]INE GRINDER Work Phone: [facility]-Endoscopy Work Phone: Start: 09-03-2023 End: 09-03-2023 ambulatory LOAD[employer]-C Kya Gonzalez LOADER [employer]INE GR[employer]ER Work Phone: [facility] Work Phone: Start: 09-02-2023 End: 09-02-2023 Office outpatient visit 25 minutes Rachel Brooks MD Work Phone: [facility] Comment on above: Acquired hypothyroid ism (Primary Dx); Oropharyngeal dysphagia; 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); Cancer of oral cavity ([facility]/HCC) Start: 08-30-2023 End: 08-30-2023 Patient encounter procedure LOADER [employer]ER-C Kya Gonzalez LOADER [employer]AZINE GRINDER Work Phone: [facility] Work Phone: Start: 08-05-2023 End: 08-05-2023 Patient encounter procedure LOADER [employer]AZINE [employer]ER-C Kya Gonzalez LOADER [employer]INE GRINDER Work Phone: [facility] Work Phone: Start: 08-05-2023 End: 08-05-2023 Patient encounter procedure LOADER [employer]-C Kya Gonzalez LOADER [employer]AZINE GRINDER Work Phone: [facility] Work Phone: Start: 07-29-2023 End: 07-29-2023 ambulatory LOADER [employer]ER-C Kya Posadasa LOADER [employer]INE GRINDER Work Phone: [facility] Work Phone: Start: 07-29-2023 End: 07-29-2023 Patient encounter procedure LO[employer]ER [employer]-C Kya Posadasa LOADER [employer]AZINE GRINDER Work Phone: [facility] Work Phone: Start: 07-22-2023 End: 07-24-2023 Office outpatient visit 15 minutes Sadie Santiago CNP Work Phone: [facility] Start: 07-22-2023 Sadie Santiago PHYSICIST [place] [place] Work Phone: [facility] Start: 07-10-2023 Registered Recurring LOADER [employer]ER-C Kya Josefadanya LOADER [employer]INE GRINDER Work Phone: [facility]-Speech Therapy Work Phone: Start: 05-22-2023 End: 05-22-2023 Patient encounter procedure LO[employer]-C Kya Josefamegana LOADER MAGAZINE GRINDER Work Phone: [facility] [place] [facility] Work Phone: Start: 04-25-2023 Patient encounter procedure Kya Gonzalez Work Phone: KQ-Zhecpbzuprgsee-Nncgn Work Phone: Start: 04-25-2023 ambulatory Ms. Kya Gonzalez Facili ty:[id number] Start: 04-12-2023 End: 04-12-2023 Sadie Santiago PHYSICIST [place] Work Phone: [facility] Start: 04-10-2023 Non-patient / Non-visit LOADER [employer]ER-C Mack glory Monica LOADER MAGAZINE GRINDER Work Phone: [facility] Start: 04-10-2023 Registered Recurring LOADER MAGAZINE GRINDER-C Kya Posadasa LOADER [employer]AZINE GRINDER Work Phone: [facility]-Speech Therapy Work Phone: Start: 04-10-2023 End: 04-10-2023 ambulatory LOADER [employer] GR[employer]ER-C Kya Posadasa LOADER [employer]INE GRINDER Work Phone: [facility] Work Phone: Start: 04-10-2023 End: 04-10-2023 Discharged Recurring LOADER MAGAZINE GRINDER-C Kya Posadasa LOADER [employer]AZINE GRINDER Work Phone: [facility] Work Phone: Start: 04-04-2023 Patient encounter procedure Kya Gonzalez Work Phone: NL-Ajtewbapbzaypc-Fvqgo Work Phone: Start: 04-04-2023 ambulatory Ms. Kya Tejeda ty:[id number] Start: 04-03-2023 Non-patient / Non-visit LOADER [employer]AZINE [employer]INDER-C M glory Ciesa LOADER MAGAZINE GRINDER Work Phone: [facility] Start: 03-27-2023 Non-patient / Non-visit LO[employer]ER-C M glory Ciesa LOADER [employer]INE GRINDER Work Phone: [facility] Start: 03-20-2023 Non-patient / Non-visit LOADER [employer]AZINE GR[employer]ER-C M glory Ciesa LOADER [employer]AZINE GRINDER Work Phone: [facility] Start: 03-20-2023 End: 03-22-2023 ambulatory LOADER [employer]AZINE GR[employer]ER-C Kya Gonzalez LOADER MAGAZINE GRINDER Work Phone: [facility] Work Phone: Start: 03-20-2023 End: 03-22-2023 Discharged Recurring LOADER MAGAZINE GRINDER-C Kya Gonzalez LOADER MAGAZINE GRINDER [facility] Work Phone: Start: 03-14-2023 Patient encounter procedure Kya Gonzalez Work Phone: GY-Htqiddmzvaclza-Ckzis Work Phone: Start: 03-14-2023 [address] Mr. Segundo Chamorro Facility:[id number] Start: 03-13-2023 Non-patient / Non-visit [employer]-C Mack holder Ciesa LOADER MAGAZINE GRINDER Work Phone: [facility] Start: 03-06-2023 Non-patient / Non-visit LOADER [employer]AZINE GR[employer]ER-C M glory Ciesa LOADER [employer]AZINE GRINDER Work Phone: [facility] Start: 03-06-2023 Office outpatient ne w 30 minutes Kya Gonzalez Work Phone: ZB-Twzwhaqkdqdyyc-Sfkmk Work Phone: Start: 03-06-[address] Rachel Brooks Facility:[id number] Start: 02-27-2023 Non-patient / Non-visit LOADER MAGAZINE GR[employer]ER-C M glory Ciesa LOADER MAGAZINE GRINDER Work Phone: After Hours [facility] Start: 02-25-2023 Office outpatient vi sit 15 minutes Kya Posadasa Work Phone: EV-Zidwmbhxgbreal-Sgshtgp rg Work Phone: Start: 02-25-2023 Patient encounter procedure Kya Gonzalez Work Phone: ZF-Ldobbywxqxnykx-Wcuyqab rg Work Phone: Start: 02-25-[address] Rachel Brooks Facility:[id number] Start: 02-20-2023 Non-patient / Non-visit LOADER [employer]AZINE GR[employer]ER-C M glory Ciesa LOADER MAGAZINE GRINDER Work Phone: [place] Start: 02-20-2023 End: 02-20-2023 ambulatory LOADER MAGAZINE GRINDER-C Kya Posadaschioma LOADER MAGAZINE GRINDER Work Phone: [facility] Work Phone: Start: 02-20-2023 End: 02-20-2023 Discharged Recurring LOADER MAGAZINE GRINDER-C Kya Posadasa LOADER MAGAZINE GRINDER Work Phone: [facility] Start: 02-13-2023 Non-patient / Non-visit LOADER MAGAZINE GRINDER-C M glory Ciesa LOADER MAGAZINE GRINDER Work Phone: [place] Start: 02-06-2023 Non-patient / Non-visit LOADER MAGAZINE GRINDER-C M glory Ciesa LOADER MAGAZINE GRINDER Work Phone: [place] Start: 01-31-2023 End: 01-31-2023 Patient encounter procedure LOADER MAGAZINE GRINDER-C Kya Posadasa LOADER MAGAZINE GRINDER Work Phone: [facility] Start: 01-30-2023 Non-patient / Non-visit LOADER MAGAZINE GRINDER-C Mack Gonzalez LOADER MAGAZINE GRINDER Work Phone: [place] Start: 01-30-2023 Registered Recurring LOADER MAGAZINE GRINDER-C Kya Gonzalez LOADER MAGAZINE GRINDER [facility] [place] Start: 01-28-[address] Rachel Brooks [facility]:[id number] Start: 01-28-2023 End: 01-28-2023 ambulatory LOADER MAGAZINE GRINDER-C Kya Gonzalez LOADER MAGAZINE GRINDER Work Phone: [facility] Work Phone: Start: 01-28-2023 End: 01-28-2023 Patient encounter procedure Kya Gonzalez Work Phone: [facility] Start: 01-23-2023 Non-patient / Non-visit LO[employer]ER [employer]INE [employer]ER-C Mack Gonzalez LOADER MAGAZINE GRINDER Work Phone: [place] Start: 01-21-2023 End: 01-21-2023 Sadie Santiago CNP Work Phone: [facility] Start: 01-16-2023 ambulatory Sadie Santiago CNP [facility] Start: 01-16-2023 Non-patient / Non-visit LO[employer]ER-C Mack Gonzalez LOADER MAGAZINE GRINDER Work Phone: [place] Start: 01-16-2023 End: 01-21-2023 Office outpatient visit 15 minutes Sadie Santiago CNP Work Phone: [facility] Start: 01-16-2023 Sadie Santiago CNP Work Phone: [facility] Start: 01-16-2023 End: 01-20-2023 ambulatory LOADER [employer]AZINE GR[employer]ER-C Kya Gonzalez LOADER MAGAZINE GRINDER Work Phone: [facility] Work Phone: Start: 01-16-2023 End: 01-20-2023 Discharged Recurring LOADER MAGAZINE GRINDER-C Kya Gonzalez LOADER MAGAZINE GRINDER [facility] Start: 01-09-2023 Non-patient / Non-visit LOADER MAGAZINE GRINDER-C M glory Ciesa LOADER MAGAZINE GRINDER Work Phone: [place] Start: 01-02-2023 Non-patient / Non-visit LOADER MAGAZINE GRINDER-C M glory Ciesa LOADER MAGAZINE GRINDER Work Phone: [place] Start: 12-26-2022 Registered Recurring LOADER MAGAZINE GRINDER-C Kya Gonzalez LOADER MAGAZINE GRINDER Work Phone: [facility]-Speech Therapy Start: 12-26-2022 Non-patient / Non-visit LOADER MAGAZINE GRINDER-C M glory Ciesa LOADER MAGAZINE GRINDER Work Phone: [place] Start: 12-12-2022 Non-patient / Non-visit LOADER MAGAZINE GRINDER-C M glory Ciesa LOADER MAGAZINE GRINDER Work Phone: [place] Start: 12-12-2022 End: 12-21-2022 ambulatory LOADER MAGAZINE GRINDER-C Kya Gonzalez LOADER MAGAZINE GRINDER Work Phone: [facility] Work Phone: Start: 12-12-2022 End: 12-21-2022 Discharged Recurring LOADER MAGAZINE GRINDER-C Kya Gonzalez LOADER MAGAZINE GRINDER Work Phone: [facility] Start: 12-05-2022 Non-patient / Non-visit LOADER MAGAZINE GRINDER-C M glory Ciesa LOADER MAGAZINE GRINDER Work Phone: [place] Start: 11-28-2022 Non-patient / Non-visit LOADER MAGAZINE GRINDER-C M glory Ciesa LOADER MAGAZINE GRINDER Work Phone: [place] Start: 11-21-2022 Registered Recurring LOADER MAGAZINE GRINDER-C Kya Posadasa LOADER MAGAZINE GRINDER Work Phone: [facility] Start: 11-21-2022 End: 11-21-2022 Patient encounter procedure LOADER MAGAZINE GRINDER-C Kya Gonzalez LOADER MAGAZINE GRINDER Work Phone: [facility] Start: 11-14-2022 Non-patient / Non-visit LOADER MAGAZINE GRINDER-C M glory Posadasa LOADER MAGAZINE GRINDER Work Phone: [place] Start: 11-14-2022 End: 11-20-2022 ambulatory LOADER MAGAZINE GRINDER-C Kya Gonzalez LOADER MAGAZINE GRINDER Work Phone: [facility] Work Phone: Start: 11-14-2022 End: 11-20-2022 Discharged Recurring LOADER MAGAZINE GRINDER-C Kya Gonzalez LOADER MAGAZINE GRINDER [facility] [place] Start: 11-07-2022 Non-patient / Non-visit LOADER MAGAZINE GRINDER-C M glory Posadasa LOADER MAGAZINE GRINDER Work Phone: [place] Start: 11-01-2022 End: 11-01-2022 Patient encounter procedure LOADER MAGAZINE GRINDER-C Kya Gonzalez LOADER MAGAZINE GRINDER Work Phone: [facility] Start: 10-24-2022 Non-patient / Non-visit LOADER MAGAZINE GRINDER-C M glory Posadasa LOADER MAGAZINE GRINDER Work Phone: [place] Start: 10-10-2022 Non-patient / Non-visit LOADER MAGAZINE GRINDER-C M glory Posadasa LOADER MAGAZINE GRINDER Work Phone: [place] Start: 10-10-2022 End: 10-23-2022 ambulatory LOADER MAGAZINE GRINDER-C Kya Gonzalez LOADER MAGAZINE GRINDER Work Phone: [facility] Work Phone: Start: 10-10-2022 End: 10-23-2022 Discharged Recurring LOADER MAGAZINE GRINDER-C Kya Josefadanya LOADER MAGAZINE GRINDER Work Phone: [facility] Start: 10-03-2022 Non-patient / Non-visit LOADER MAGAZINE GRINDER-C M glory Posadasa LOADER MAGAZINE GRINDER Work Phone: [place] Start: 09-26-2022 Registered Recurring LOADER MAGAZINE GRINDER-C Kya Gonzalez LOADER MAGAZINE GRINDER Work Phone: [facility] Start: 09-19-2022 Non-patient / Non-visit LOADER MAGAZINE GRINDER-C M glory Ciesa LOADER MAGAZINE GRINDER Work Phone: [place] Start: 09-19-2022 End: 09-22-2022 Discharged Recurring LOADER MAGAZINE GRINDER-C Kya Riverodanya LOADER MAGAZINE GRINDER [facility] Start: 09-12-2022 Non-patient / Non-visit LOADER MAGAZINE GRINDER-C M glory Ciesa LOADER MAGAZINE GRINDER Work Phone: [place] Start: 09-05-2022 Non-patient / Non-visit LOADER MAGAZINE GRINDER-C M glory Ciesa LOADER MAGAZINE GRINDER Work Phone: [place] Start: 08-29-2022 Non-patient / Non-visit LOADER MAGAZINE GRINDER-C M glory Ciesa LOADER MAGAZINE GRINDER Work Phone: [place] Start: 08-22-2022 Non-patient / Non-visit LOADER MAGAZINE GRINDER-C M glory Ciesa LOADER MAGAZINE GRINDER Work Phone: [place] Start: 08-22-2022 End: 08-22-2022 Discharged Recurring LOADER MAGAZINE GRINDER-C Kya Riverodanya LOADER MAGAZINE GRINDER Work Phone: [facility] Start: 08-15-2022 Non-patient / Non-visit LOADER MAGAZINE GRINDER-C M glory Ciesa LOADER MAGAZINE GRINDER Work Phone: [place] Start: 08-08-2022 Non-patient / Non-visit LOADER MAGAZINE GRINDER-C M glory Ciesa LOADER MAGAZINE GRINDER Work Phone: [place] Start: 08-07-2022 Chart Update Kya Gonzalez Work Phone: EB-Nrqujjnoclwmwy-[place] [address] Work Phone: Start: 08-01-2022 Non-patient / Non-visit LOADER MAGAZINE GRINDER-C M glory Ciesa LOADER MAGAZINE GRINDER Work Phone: [place] Start: 07-31-2022 End: 07-31-2022 Patient encounter procedure LOADER MAGAZINE GRINDER-C Kya Gonzalez LOADER MAGAZINE GRINDER Work Phone: [facility] Start: 07-24-2022 End: 07-24-2022 ambulatory LOADER MAGAZINE GRINDER-C Kya Posadasa LOADER MAGAZINE GRINDER Work Phone: [facility] Work Phone: Start: 07-24-2022 End: 07-24-2022 Patient encounter procedure LOADER MAGAZINE GRINDER-C Kya Gonzalez LOADER MAGAZINE GRINDER Work Phone: [facility] Start: 07-18-2022 Non-patient / Non-visit LOADER MAGAZINE GRINDER-C M glory Cimegana LOADER MAGAZINE GRINDER Work Phone: [place] Start: 07-18-2022 End: 07-23-2022 ambulatory LOADER MAGAZINE GRINDER-C Kya Posadasa LOADER MAGAZINE GRINDER Work Phone: [facility] Work Phone: Start: 07-18-2022 End: 07-23-2022 Discharged Recurring LOADER MAGAZINE GRINDER-C Kya Gonzalez LOADER MAGAZINE GRINDER [facility] Start: 07-04-2022 Registered Recurring LOADER MAGAZINE GRINDER-C Kya Gonzalez LOADER MAGAZINE GRINDER Work Phone: [facility] Start: 07-04-2022 Non-patient / Non-visit LOADER MAGAZINE GRINDER-C M glory Ciesa LOADER MAGAZINE GRINDER Work Phone: [place] Start: 06-27-2022 Non-patient / Non-visit LOADER MAGAZINE GRINDER-C M glory Ciesa LOADER MAGAZINE GRINDER Work Phone: [place] Start: 06-21-2022 AUDIT Kya Gonzalez Work Phone: GZ-Hxchyiojktqrxf-Wpgbd [place] [address] Work Phone: Start: 06-21-2022 Chart Update Kya Gonzalez Work Phone: XF-Ovogsqykagutsd-Ujtsh [place] [address] Work Phone: Start: 06-20-2022 Non-patient / Non-visit LOADER MAGAZINE GRINDER-C M glory Ciesa LOADER MAGAZINE GRINDER Work Phone: [place] Start: 06-20-2022 Registered Recurring LOADER MAGAZINE GRINDER-C Kya Posadasa LOADER MAGAZINE GRINDER Work Phone: [facility] Start: 06-20-2022 End: 2022 Discharged Recurring LOADER MAGAZINE GRINDER-C Kya Riveroesa LOADER MAGAZINE GRINDER Work [facility]: [facility] [place] Start: 06-20-2022 Registered Recurring LOADER MAGAZINE GRINDER-C Kya Riveroesa LOADER MAGAZINE GRINDER [facility] Phone[facility] Start: 06-18-[address] Rachel Mancia [place] Facility:[id number] Start: 06-18-2022 Office outpatient vi sit 15 minutes Archana Monica Work Phone: WW-Zhgxhbaosirmra-Pboyi Work Phone: Start: 06-15-2022 End: 06-15-2022 ambulatory LOADER MAGAZINE GRINDER-C Kya Posadasa LOADER MAGAZINE GRINDER Work Phone: [facility] Work Phone: Start: 06-15-2022 End: 06-15-2022 Patient encounter procedure LOADER MAGAZINE GRINDER-C Kya Posadasa LOADER MAGAZINE GRINDER Work Phone: [facility] Start: 06-13-2022 Non-patient / Non-visit LOADER MAGAZINE GRINDER-C M glory Ciesa LOADER MAGAZINE GRINDER Work Phone: [place] Start: 06-06-2022 Non-patient / Non-visit LOADER MAGAZINE GRINDER-C M glory Ciesa LOADER MAGAZINE GRINDER Work Phone: [place] Start: 05-30-2022 Non-patient / Non-visit LOADER MAGAZINE GRINDER-C M glory Ciesa LOADER MAGAZINE GRINDER Work Phone: [place] Start: 05-23-2022 Non-patient / Non-visit LOADER MAGAZINE GRINDER-C M glory Ciesa LOADER MAGAZINE GRINDER Work Phone: [place] Start: 05-23-2022 End: 05-23-2022 Patient encounter procedure LOADER MAGAZINE GRINDER-C Kya Posadaschioma LOADER MAGAZINE GRINDER Work Phone: [facility] Start: 05-23-2022 Registered Recurring LOADER MAGAZINE GRINDER-C Kya Posadasa LOADER MAGAZINE GRINDER Work Phone: [facility] Start: 05-23-2022 End: 05-23-2022 ambulatory LOADER MAGAZINE GRINDER-C Kya Posadasa LOADER MAGAZINE GRINDER Work Phone: [facility] Work Phone: Start: 05-23-2022 End: 05-23-2022 Discharged Recurring LOADER MAGAZINE GRINDER-C Kya Posadasa LOADER MAGAZINE GRINDER [facility] Start: 05-16-2022 AUDIT Kya Gonzalez Work Phone: BO-Pyuegxhsooxdkc-Aewbqwj Work Phone: Start: 05-16-2022 Non-patient / Non-visit LOADER MAGAZINE GRINDER-C M glory Ciesa LOADER MAGAZINE GRINDER Work Phone: [place] Start: 05-14-[address] Rachel Brooks Facility:[id number] Start: 05-14-2022 Office outpatient vi sit 15 minutes Kya Gonzalez Work Phone: FQ-Ybrhgbsxqgcnhs-Uhwuh Work Phone: Start: 05-09-2022 Non-patient / Non-visit LOADER MAGAZINE GRINDER-C M glory Ciesa LOADER MAGAZINE GRINDER Work Phone: [place] Start: 05-08-2022 Registered Recurring LOADER MAGAZINE GRINDER-C Kya Katharinaa LOADER MAGAZINE GRINDER Work Phone: [facility] Start: 05-02-2022 Non-patient / Non-visit LOADER MAGAZINE GRINDER-C M glory Ciesa LOADER MAGAZINE GRINDER Work Phone: [place] Start: 04-30-2022 End: 04-30-2022 Patient encounter procedure LOADER MAGAZINE GRINDER-C Kya Gonzalez LOADER MAGAZINE GRINDER Work Phone: [facility] Start: 04-25-2022 Non-patient / Non-visit LOADER MAGAZINE GRINDER-C Mack Gonzalez LOADER MAGAZINE GRINDER Work Phone: [facility] Start: 04-17-2022 Registered Recurring LOADER MAGAZINE GRINDER-C Kya Gonzalez LOADER MAGAZINE GRINDER Work Phone: [facility] Start: 04-16-2022 Postop follow up vis it related to original px Kya Gonzalez Work Phone: IC-Qmcmsoeffqtiiy-Cnapx Work Phone: Start: 04-13-2022 End: 04-13-2022 Patient encounter procedure LOADER MAGAZINE GRINDER-C Kya Gonzalez LOADER MAGAZINE GRINDER Work Phone: [facility] Start: 04-11-2022 Chart Update Kya Gonzalez Work Phone: DA-Rqmdrcwlejilme-Snrmlav Work Phone: Start: 03-28-2022 End: 04-22-2022 Discharged Recurring LOADER MAGAZINE GRINDER-C Kya Gonzalez LOADER MAGAZINE GRINDER [facility] Start: 03-28-2022 Registered Recurring LOADER MAGAZINE GRINDER-C Kya Gonzalez LOADER MAGAZINE GRINDER [facility] Start: 03-27-2022 End: 03-27-2022 Patient encounter procedure LOADER MAGAZINE GRINDER-C Kya Gonzalez LOADER MAGAZINE GRINDER Work Phone: [facility] Start: 03-14-2022 Registered Recurring LOADER MAGAZINE GRINDER-C Kya Gonzalez LOADER MAGAZINE GRINDER Work Phone: [facility] Start: 02-27-2022 End: 02-27-2022 Patient encounter procedure LOADER MAGAZINE GRINDER-C Kya Gonzalez LOADER MAGAZINE GRINDER Work Phone: [facility] Start: 02-26-2022 End: 02-26-2022 Annotation/Addendum Kya Gonzalez Work Phone: [facility] Start: 02-26-2022 End: 02-26-2022 Sadie Santiago PHYSICIST [employer] Work Phone: [facility] Start: 02-22-2022 Review Kya Gonzalez Work Phone: [facility] Start: 02-16-2022 End: 02-16-2022 Annotation/Addendum Kya Gonzalez Work Phone: [facility] Start: 02-16-2022 End: 02-16-2022 Sadie Jack PHYSICIST [employer] Work Phone: [facility] Start: 02-15-2022 End: 02-15-2022 Office outpatient visit 25 minutes Kya Gonzalez Work Phone: [facility] Start: 02-14-2022 End: 02-14-2022 Patient encounter procedure LOADER MAGAZINE GRINDER-C Kya Gonzalez LOADER MAGAZINE GRINDER Work Phone: [facility] Start: 02-12-2022 Office outpatient vi sit 15 minutes Kya Gonzalez Work Phone: LJ-Iyfiyqfbegdeam-Oquow [place] [address] Work Phone: Start: 02-12-2022 Patient encounter procedure Kya Gonzalez Work Phone: JA-Kiljnothiwyqvy-Tmhrp Work Phone: Start: 02-06-2022 Registered Recurring LOADER MAGAZINE GRINDER-C Kya Gonzalez LOADER MAGAZINE GRINDER Work Phone: [facility] Start: 02-06-2022 End: 02-06-2022 Patient encounter procedure LOADER MAGAZINE GRINDER-C Kya Posadaschioma LOADER MAGAZINE GRINDER Work Phone: [facility] Start: 01-31-2022 End: 01-31-2022 Patient encounter procedure LOADER MAGAZINE GRINDER-C Kya Posadaschioma LOADER MAGAZINE GRINDER Work Phone: [facility] Start: 01-25-2022 Non-patient / Non-visit LOADER MAGAZINE GRINDER-C M glory Ciesa LOADER MAGAZINE GRINDER Work Phone: [facility] Start: 01-25-2022 Registered Recurring LOADER MAGAZINE GRINDER-C Kya Posadaschioma LOADER MAGAZINE GRINDER [facility] Start: 01-24-2022 Non-patient / Non-visit LOADER MAGAZINE GRINDER-C M glory Ciesa LOADER MAGAZINE GRINDER Work Phone: [facility] Start: 01-24-2022 End: 01-24-2022 Patient encounter procedure LOADER MAGAZINE GRINDER-C Kya Gonzalez LOADER MAGAZINE GRINDER Work Phone: [facility] Start: 01-23-2022 Non-patient / Non-visit LOADER MAGAZINE GRINDER-C M glory Posadasa LOADER MAGAZINE GRINDER Work Phone: [facility] Start: 01-23-2022 Registered Recurring LOADER MAGAZINE GRINDER-C Kya Posadaschioma LOADER MAGAZINE GRINDER [facility] Start: 01-22-2022 Non-patient / Non-visit LOADER MAGAZINE GRINDER-C M glory Posadasa LOADER MAGAZINE GRINDER Work Phone: [facility] Start: 01-22-2022 End: 01-25-2022 Evaluation and management of inpatient LOADER MAGAZINE GRINDER-C Kya Gonzalez LOADER MAGAZINE GRINDER Work Phone: [facility] Start: 01-17-2022 Registered Recurring LOADER MAGAZINE GRINDER-C Kya Gonzalez LOADER MAGAZINE GRINDER Work Phone: [facility] Start: 01-17-2022 End: 01-17-2022 Patient encounter procedure LOADER MAGAZINE GRINDER-C Kya Gonzalez LOADER MAGAZINE GRINDER Work Phone: [facility] Start: 01-15-2022 Patient encounter procedure Kya Gonzalez Work Phone: ME-Tfscamgidnlxig-Zowxe Work Phone: Start: 01-15-2022 Postop follow up vis it related to original px Archana Katharinachioma Work Phone: ZG-Eyvhptbddqkypt-Uvcjh [place] [address] Work Phone: Start: 01-12-2022 Registered Recurring LOADER MAGAZINE GRINDER-C Kya Posadasa LOADER MAGAZINE GRINDER [facility] Start: 01-10-2022 Registered Recurring LOADER MAGAZINE GRINDER-C Kya Posadasa LOADER MAGAZINE GRINDER Work Phone: [facility] Start: 01-10-2022 End: 01-10-2022 Patient encounter procedure LOADER MAGAZINE GRINDER-C Kya Posadasa LOADER MAGAZINE GRINDER Work Phone: [facility] Start: 01-10-2022 End: 01-10-2022 Patient encounter procedure LOADER MAGAZINE GRINDER-C Kya Posadasa LOADER MAGAZINE GRINDER Work Phone: [facility] Start: 01-08-2022 End: 01-08-2022 Patient encounter procedure LOADER MAGAZINE GRINDER-C Kya Posadasa LOADER MAGAZINE GRINDER Work Phone: [facility] Start: 01-04-2022 End: 01-04-2022 Patient encounter procedure LOADER MAGAZINE GRINDER-C Kya Posadasa LOADER MAGAZINE GRINDER Work Phone: [facility] Start: 01-03-2022 End: 01-03-2022 Patient encounter procedure LOADER MAGAZINE GRINDER-C Kya Posadasa LOADER MAGAZINE GRINDER Work Phone: [facility] Start: 12-29-2021 Patient encounter procedure Kya Gonzalez Work Phone: KK-Cexxzzvepyyhjk-Efnqcit Work Phone: Start: 12-27-2021 End: 12-27-2021 Patient encounter procedure LOADER MAGAZINE GRINDER-C Kya Posadasa LOADER MAGAZINE GRINDER Work Phone: [facility] Start: 12-22-2021 Registered Recurring LOADER MAGAZINE GRINDER-C Kya Posadasa LOADER MAGAZINE GRINDER [facility] Start: 12-21-2021 Registered Recurring LOADER MAGAZINE GRINDER-C Kya Posadasa LOADER MAGAZINE GRINDER [facility] Start: 12-20-2021 Registered Recurring LOADER MAGAZINE GRINDER-C Kya Gonzalez LOADER MAGAZINE GRINDER Work Phone: [facility] Start: 12-20-2021 End: 12-20-2021 Patient encounter procedure LOADER MAGAZINE GRINDER-C Kya Gonzalez LOADER MAGAZINE GRINDER Work Phone: [facility] Start: 12-19-2021 End: 12-19-2021 Annotation/Addendum Kya Gonzalez Work Phone: [facility] Start: 12-19-2021 End: 12-19-2021 Sadie Santiago PHYSICIST [employer] Work Phone: [facility] Start: 12-18-2021 Postop follow up vis it related to original px Kya Gonzalez Work Phone: FN-Wzbqcbluydtysv-Ybmja Work Phone: Start: 12-18-2021 Non-patient / Non-visit LOADER MAGAZINE GRINDER-C Mack Gonzalez LOADER MAGAZINE GRINDER Work Phone: [facility] Start: 12-18-2021 End: 12-18-2021 Patient encounter procedure LOADER MAGAZINE GRINDER-C Kya Posadaschioma LOADER MAGAZINE GRINDER Work Phone: [facility] Start: 12-18-2021 End: 12-18-2021 Patient encounter procedure LOADER MAGAZINE GRINDER-C Kya Posadaschioma LOADER MAGAZINE GRINDER Work Phone: [facility] Start: 12-15-2021 Non-patient / Non-visit LOADER MAGAZINE GRINDER-C Mack mauricioy Monica LOADER MAGAZINE GRINDER Work Phone: [facility] Start: 12-15-2021 Telephone encounter Kya Browning Cie, sa Work Phone: DD-Ehaqmfpatfncnp-Fjxspym Work Phone: Start: 12-15-2021 End: 12-15-2021 Emergency department patient visit LOADER MAGAZINE GRINDER-C Kya Josefadanya LOADER MAGAZINE GRINDER Work Phone: [facility] Start: 12-15-2021 End: 12-15-2021 Office outpatient visit 25 minutes Kya Gonzalez Work Phone: [facility] Start: 12-14-2021 Non-patient / Non-visit LOADER MAGAZINE GRINDER-C M glory Monica LOADER MAGAZINE GRINDER Work Phone: [facility] Start: 12-11-2021 End: 12-21-2021 Discharged Recurring LOADER MAGAZINE GRINDER-C Kya Posadaschioma LOADER MAGAZINE GRINDER [facility] Start: 12-11-2021 Registered Recurring LOADER MAGAZINE GRINDER-C Kya Posadaschioma LOADER MAGAZINE GRINDER [facility] Start: 12-10-2021 End: 12-10-2021 Emergency department patient visit LOADER MAGAZINE GRINDER-C Kya Posadaschioma LOADER MAGAZINE GRINDER Work Phone: [facility] Start: 12-08-2021 Non-patient / Non-visit LOADER MAGAZINE GRINDER-C M glory Katharinaa LOADER MAGAZINE GRINDER Work Phone: [facility] Start: 12-07-2021 AUDIT Archana Katharinaa Work Phone: FS-Vxuujtabpbhkek-Qywnp [place] [address] Work Phone: Start: 12-07-2021 Non-patient / Non-visit LOADER MAGAZINE GRINDER-C Mack gloryamanda Riverodanya LOADER MAGAZINE GRINDER Work Phone: [facility] Start: 12-07-2021 Registered Recurring LOADER MAGAZINE GRINDER-C Kya Posadaschioma LOADER MAGAZINE GRINDER [facility] Start: 12-07-2021 End: 12-07-2021 Patient encounter procedure LOADER MAGAZINE GRINDER-C Kya Posadaschioma LOADER MAGAZINE GRINDER Work Phone: [facility] Start: 12-06-2021 AUDIT Archana Ciesa Work Phone: OL-Kfsuehvtdmpcdg-Rmayp [place] [address] Work Phone: Start: 12-05-2021 End: 12-05-2021 Emergency department patient visit Avinash Mandelx [facility] Adult ED [address] Start: 12-05-2021 End: 12-05-2021 Emergency department patient visit LOADER MAGAZINE GRINDER-C Kya Gonzalez LOADER MAGAZINE GRINDER Work Phone: [facility] Start: 12-04-2021 Patient encounter procedure Kay Gonzalez Work Phone: BR-Blyfwrychiaiyq-Txnnj Work Phone: Start: 11-29-2021 Patient encounter procedure Kya Gonzalez Work Phone: IO-Iajavrlvftwzvl-Nftofkq Work Phone: Start: 11-29-2021 Postop follow up vis it related to original px Kya Gonzalez Work Phone: CS-Rennrrcurqvuyo-Eaadb [place] [address] Work Phone: Start: 11-21-2021 Chart Update Kya Gonzalez Work Phone: JN-Jqpynhuurdfjgo-Yqlovrh e Work Phone: Start: 11-20-2021 End: 11-20-2021 Departed Referred LOADER MAGAZINE GRINDER-C Kya Gonzalez LOADER MAGAZINE GRINDER Work Phone: [place] [address] Start: 11-20-2021 Registered Referred LOADER MAGAZINE GRINDER-C Kya Gonzalez LOADER MAGAZINE GRINDER Work Phone: [place] [address] Start: 11-07-2021 Chart Update Kya Gonzalez Work Phone: CP-Decademzxdewit-Wqfbp [address] Work Phone: Start: 11-07-2021 Chart Update Kya Gonzalez Work Phone: QM-Wfraxzbrarywsp-Xyyrs [address] Work Phone: Start: 11-07-2021 End: 11-18-2021 Evaluation and management of inpatient Rachel Morales 5 Rm [id number] Start: 11-03-2021 Chart Update Kya Gonzalez Work Phone: KG-Embztpngkrdzvc-Wkeip [place] [address] Work Phone: Start: 11-03-2021 Chart Update Kya Gonzalez Work Phone: NT-Qpuylhkckptnbq-Mejombm e Work Phone: Start: 11-01-2021 AUDIT Kya Gonzalez Work Phone: WB-Csceiyotaznfbp-Lnzyogd e Work Phone: Start: 11-01-2021 FUV, Provider: Willie Smith, Status: Pen, Time: 8:00 AM Kya Gonzalez Work Phone: FV-Znuvftsjafliyn-Qma for Perioperative Med Work Phone: Start: 11-01-2021 Office outpatient vi sit 25 minutes Kya Gonzalez Work Phone: NL-Tbmkgprobrcvht-Udakrgl n Work Phone: Start: 10-31-2021 AUDIT Kya Gonzalez Work Phone: HM-Oixafqhdfmfnfj-Fub for Perioperative Med Work Phone: Start: 10-25-2021 Chart Update Kya Gonzalez Work Phone: MC-Ptuykbkohbfcds-Dswgu [place] [address] Work Phone: Start: 10-16-2021 Office outpatient vi sit 40 minutes Kya Gonzalez Work Phone: FT-Tvcepjdzsjbvli-Asbdo [place] [address] Work Phone: Start: 10-16-2021 Patient encounter procedure Kya Gonzalez Work Phone: OR-Ansffhjrixtetd-Vwblf Work Phone: Start: 08-23-2021 Patient encounter procedure LOADER MAGAZINE GRINDER-C Kya Gonzalez LOADER MAGAZINE GRINDER Work Phone: [facility] Start: 08-23-2021 Non-patient / Non-visit LOADER MAGAZINE GRINDER-C Mack Gonzalez LOADER MAGAZINE GRINDER Work Phone: [place] Start: 08-23-2021 End: 09-22-2021 Discharged Recurring LOADER MAGAZINE GRINDER-C Kya Gonzalez LOADER MAGAZINE GRINDER [facility] Start: 08-15-2021 End: 08-15-2021 Office outpatient visit 25 minutes Kya Posadaschioma PHYSICIST [employer] Work Phone: [facility] Start: 07-26-2021 End: 07-26-2021 Office outpatient visit 15 minutes Kya Posadascihoma PHYSICIST [employer] Work Phone: [facility] Start: 03-13-2021 Review Kya Posadaschioma PHYSICIST [employer] Work Phone: [facility] Start: 03-13-2021 End: 03-13-2021 Office outpatient visit 25 minutes Kya Posadaschioma PHYSICIST [employer] Work Phone: [facility] Start: 12-02-2020 End: 12-02-2020 Office outpatient visit 15 minutes Kya Katharinachioma [facility] Start: 11-28-2020 Review Kya Posadaschioma Compreh [facility] Start: 08-29-2020 Review Kya Gonzalez Comprehens [facility] Start: 08-29-2020 End: 08-29-2020 Office outpatient visit 15 minutes Kya Riveromeganchioma [facility] Start: 06-29-2020 End: 06-29-2020 Office outpatient visit 15 minutes Kya Gonzalez [facility] Start: 06-29-2020 Review Kya Gonzalez Comprehens [facility] Start: 05-19-2020 End: 05-19-2020 Lab Order Kya Posadaschioma [facility] Start: 05-19-2020 End: 05-19-2020 Sadie Santiago PHYSICIST [employer] Work Phone: [facility] Start: 04-14-2020 End: 04-14-2020 Office outpatient visit 15 minutes Kya Gonzalez [facility] Start: 12-14-2019 End: 12-14-2019 Office outpatient visit 15 minutes Kya Gonzalez [facility] Start: 06-15-2019 Patient encounter procedure Rachel Brooks HS-Vmdelpxxqcocbl-Mkioh [place] [address] Work Phone: Start: 04-13-2019 Patient encounter procedure Rachel Brooks JD-Vfnejtxwbhepdj-Deyjs [place] [address] Work Phone: Start: 03-16-2019 Patient encounter procedure Rachel ELLERFL-Lderndupxlkdjv-Cuafv [place] [address] Work Phone: Start: 01-19-2019 Patient encounter procedure Rachel ELLEREC-Lwldmrthrwsmmd-Ctklh [place] [id number] Work Phone: Start: 01-05-2019 End: 01-05-2019 Annotation/Addendum Kya Monica [facility] Start: 01-05-2019 End: 01-05-2019 Sadie Santiago CNP Work Phone: [facility] Start: 01-02-2019 End: 01-02-2019 Annotation/Addendum Kya Monica [facility] Start: 01-02-2019 End: 01-02-2019 Sadie Santiago CNP Work Phone: [facility] Start: 01-02-2019 End: 01-02-2019 Office outpatient visit 25 minutes Kya Gonzalez [facility] Start: 01-02-2019 Review Kya Yipens [facility] Start: 12-19-2018 End: 12-19-2018 Annotation/Addendum Kya Gonzalez [facility] Start: 12-19-2018 End: 12-19-2018 Sadie Santiago CNP Work Phone: [facility] Start: 12-15-2018 Review Kya Gonzalez Comprehens [facility] Start: 12-15-2018 End: 12-15-2018 Office outpatient new 45 minutes Kya Katharinachioma [facility] Patient encounter status Kya Gonzalez Work Phone: DH-Dwlgougrzcespj-Rfvdn Work Phone: Procedures Date Procedure Procedure Detail Performing Clinician Start: 05-07-2025 Blood pressure outside of normal parameters - follow-up documented Roman Morales MD Work Phone: Start: 05-07-2025 Current tobacco non-user cad cap copd pv dm Roman Morales MD Work Phone: Start: 05-07-2025 Documentation of current medications Roman Morales MD Work Phone: Start: 05-07-2025 Pain assessment documented as negative - follow-up not required Roman Morales MD Work Phone: Start: 04-15-2025 Esophagogastroduodenoscopy Sadie Santiago LOADER MAGAZINE GRINDER-C Work Phone: [phone] Start: 12-29-2024 CT of thorax with contrast Sadie Santiago LOADER MAGAZINE GRINDER-C Work Phone: [phone] Start: 12-17-[address] Quincy Simpson MD Work Phone: Start: 09-15-2024 Plain chest X-ray Dr. Quincy Simpson MD Work Phone: Start: 09-15-2024 Plain chest X-ray Dr. Quincy Simpson MD Work Phone: Start: 09-15-2024 Biopsy/Inj or Needle Placement Dr. Quincy Simpson MD Work Phone: Start: 08-25-2024 CT of thorax with contrast Dr. Quincy Simpson MD Work Phone: Start: 09-04-2023 XR CHEST 2 VIEWS RACHEL BROOKS Start: 09-03-2023 Esophagogastroduodenoscopy LOADER MAGAZINE GRINDER-C Kya Posadasa LOADER MAGAZINE GRINDER Work Phone: [phone] Start: 08-05-2023 Videoswallow LOADER MAGAZINE GRINDER-C Kya Posadasa LOADER MAGAZINE GRINDER Work Phone: [phone] Start: 07-29-2023 CT of soft tissues of neck with contrast LOADER MAGAZINE GRINDER-C Kya Posadasa LOADER MAGAZINE GRINDER Work Phone: [phone] Start: 07-29-2023 CT of thorax with contrast LOADER MAGAZINE GRINDER-C Kya Posadasa LOADER MAGAZINE GRINDER Work Phone: [phone] Start: 05-22-2023 End: 05-22-2023 Procedure Note: See Note; NOTES: [facility] [place] [facility] [place] [address] OFFICE VISIT Date of Service: 05/22/23 1102 MR#: [id number] Acct: [id number] Name: MY JAMA Rep #: [id number] : 1960 From: Quincy Simpson MD Age/Sex: 62/M Location: [facility] Status: Signed HPI Subjective Date of Service [...] FINDINGS: Supraclavicular: No acute process within the ybcla-wy-ljgh. Body wall soft tissues: No acute process. [...] AE1-3 (AE1/AE3/PCK26) positive CK7 (OV-TL12/30) negative CK8 (85xfttV54) positive, weak CK20 (KS20.8) negative TTF-1 (8G7G3/1) [...] Date of Last Treatment: 02/06/2022 [facility] Medical History Acid reflux Anemia [...] of first interosseous muscles. Coordination / Balance: zolpnu-it-msje test normal Speech: speech abnormal Gait (Neuro): [...] reviewed with patient . Quincy Simpson MD Talent Specialist, [facility] Divisions of Medical Oncology Hematology Department of Internal Medicine [place] [address] This note was generated using a voice recognition system software. Although it was reviewed by the author prior to finalization, it may still contain incorrect words, spelling, and punctuation that were not noted when reviewing prior to saving. If a clinically significant typo or inaccurately typed phrase is noted, please notify the author. 05/22/23 1715 <Electronically signed by Quincy Simpson MD> Date Quincy Simpson MD Cosigner Signature: Date (if applicable) CC: Sadie Santiago PHYSICIST [employer] Work Phone: Start: 04-03-2023 Anaerobic microbial culture LOADER MAGAZINE GRINDER-C Kya Gonzalez LOADER MAGAZINE GRINDER Work Phone: [phone] Start: 04-03-2023 Investigation of transfusion reaction LOADER MAGAZINE GRINDER-C Kya Gonzalez LOADER MAGAZINE GRINDER Work Phone: [phone] Start: 04-03-2023 Microbial culture, routine LOADER MAGAZINE GRINDER-C Kya Gonzalez LOADER MAGAZINE GRINDER Work Phone: [phone] Start: 02-13-2023 Anaerobic microbial culture LOADER MAGAZINE GRINDER-C Kya Gonzalez LOADER MAGAZINE GRINDER Work Phone: [phone] Start: 02-13-2023 Investigation of transfusion reaction LOADER MAGAZINE GRINDER-C Kya Gonzalez LOADER MAGAZINE GRINDER Work Phone: [phone] Start: 02-13-2023 Microbial culture, routine LOADER MAGAZINE GRINDER-C Kya Gonzalez LOADER MAGAZINE GRINDER Work Phone: [phone] Start: 01-31-2023 End: 01-31-2023 Procedure Note: See Note; NOTES: [facility] [address] [address] OFFICE VISIT Date of Service: 01/31/23956 MR#: [id number] Acct: [id number] Name: MY JAMA Rep #: [id number] : 1960 From: Santiago Sellers DO Age/Sex: 62/M Location[place] [facility] Status: Signed Intake Vital Signs 11/01/22 09:37 [...] discussion with ENT. 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 He will continue to see ENT every [...] at any time. 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 01/31/23 1024 <Electronically signed by Santiago Sellers DO> Date Santiago Sellers DO Cosigner Signature: Date (if applicable) CC: LOADER MAGAZINE GRINDER-C Kya Gonzalez; MD Sadie Agustin PHYSICIST [employer] Work Phone: Start: 01-28-2023 CT of soft tissues of neck with contrast LOADER MAGAZINE GRINDER-C Kya Gonzalez LOADER MAGAZINE GRINDER Work Phone: Start: 01-28-2023 CT of thorax with contrast LOADER MAGAZINE GRINDER-C Kya Gonzalez LOADER MAGAZINE GRINDER Work Phone: Start: 01-28-2023 End: 01-28-2023 Procedure Note: See Note; NOTES: [facility] Imaging Services [address] [place] [address] Chest WITH Contrast MR#: [id number] Acct: [id number] Name: MY JAMA Rep #: [id number] : 1960 M 62 From: Bib gohsh MD PCP: YARI Santillan Status: REG CLI Study: Chest WITH Contrast Date of Exam: 01/28/23 Exam# [id number] Ordering Dr: Santiago Sellers DO STUDY: CT [...] 12:48 EDT Reading Location ID and State: [address] [place] [address] , Service support , CC: YARI Santiago; Dr. Santiago Sellers DO Radio Communications Superintendent: Signed Sadie Santiago CNP Work Phone: Start: 01-28-2023 End: 01-28-2023 Procedure Note: See Note; NOTES: [facility] Imaging Services [address] [place] [address] Soft Tissue Neck WITH Contrast MR#: [id number] Acct: [id number] Name: MY JAMA Rep #: [id number] : 1960 M 62 From: Bib ghosh MD PCP: Sadie Santiago NP-Damaris Status: REG CLI Study: Soft Tissue Neck WITH Contrast Date of Exam: 0 01/28/23 Exam# [id number] Ordering Dr: Santiago Sellers DO STUDY: CT [...] seen. Normal bilateral parotid glands. Normal bilateral executive consultant spaces. Normal bilateral parapharyngeal spaces. Normal [...] Reeves MD at 12:44 EDT , CC: LOADER MAGAZINE GRINDER-C Sadie Santiago; Dr. Santiago Sellers DO Radio Communications Superintendent: Signed Sadie Santiago PHYSICIST [employer] Work Phone: Start: 01-09-2023 Anaerobic microbial culture LOADER MAGAZINE GRINDER-C Kya Posadaschioma LOADER MAGAZINE GRINDER Work Phone: Start: 01-09-2023 Investigation of transfusion reaction LOADER MAGAZINE GRINDER-C Kya Posadaschioma LOADER MAGAZINE GRINDER Work Phone: Start: 01-09-2023 Microbial culture, routine LOADER MAGAZINE GRINDER-C Kya Gonzalez LOADER MAGAZINE GRINDER Work Phone: Start: 11-21-2022 End: 11-21-2022 Procedure Note: See Note; NOTES: [facility] [address] [place] [address] OFFICE VISIT Date of Service: 11/21/22 1303 MR#: [id number] Acct: [id number] Name: MY JAMA Yamilet Rep #: [id number] : 1960 From: Quincy Simpson MD Age/Sex: 62/M Location: [facility] Status: Signed HPI Subjective Date of Service [...] FINDINGS: Supraclavicular: No acute process within the niedp-rs-hevy. Body wall soft tissues: No acute process. [...] AE1-3 (AE1/AE3/PCK26) positive CK7 (OV-TL12/30) negative CK8 (92btogP36) positive, weak CK20 (KS20.8) negative TTF-1 (8G7G3/1) [...] Date of Last Treatment: 02/06/2022 [facility] Medical History Acid reflux Anemia [...] of first interosseous muscles. Coordination / Balance: ugaieq-qq-hcoe test normal Speech: speech abnormal Gait (Neuro): [...] therapy with radiation and weekly carboplatin chemosensitization November???May , 2022. Recovered well from second line treatment, although [...] reviewed with patient . Quincy Simpson MD Talent Specialist, [facility] Divisions of Medical Oncology Hematology Department of Internal Medicine [place] [address] This note was generated using a voice recognition system software. Although it was reviewed by the author prior to finalization, it may still contain incorrect words, spelling, and punctuation that were not noted when reviewing prior to saving. If a clinically significant typo or inaccurately typed phrase is noted, please notify the author. 11/21/22 0876 <Electronically signed by Quincy Simpson MD> Date Quincy Simpson MD Cosigner Signature: Date (if applicable) CC: LOADER MAGAZINE GRINDERLulu Santiago [facility] Work Phone: Start: 11-01-2022 End: 11-01-2022 Procedure Note: See Note; NOTES: [place] [address] OFFICE VISIT Date of Service: 11/01/22929 MR#: [id number] Acct: [id number] Name: MY JAMA Rep #: [id number] : 1960 From: Santiago Sellers DO Age/Sex: 62/M Location: [facility] Status: Signed Intake Vital Signs 07/31/22 09:11 [...] fibrosis #30 caps 07/31/22 [Rx Confirmed 11/01/22] PFSH PFSH Medical History Acid reflux Anemia [...] at any time. 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 11/01/22 1006 <Electronically signed by Santiago Sellers DO> Date Santiago Sellers DO Cosigner Signature: Date (if applicable) CC: LOADER MAGAZINE GRINDER-C Kya Gonzalez; MD Sadie Agustin [facility] Work Phone: Start: 08-06-2022 Thyrotropin [Units/volume] in Serum or Plasma Rachel Brooks MD Work Phone: Start: 07-31-2022 End: 07-31-2022 Procedure Note: See Note; NOTES: [facility] [address] [place] [address] OFFICE VISIT Date of Service: 07/31/22903 MR#: [id number] Acct: [id number] Name: YM JAMA Rep #: [id number] : 1960 From: Santiago Sellers DO Age/Sex: 62/M Location: [facility] Status: Signed Intake Vital Signs 04/30/22 09:03 [...] at any time. 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 07/31/22 1000 <Electronically signed by Santiago Sellers DO> Date Santiago Sellers DO Cosigner Signature: Date (if applicable) CC: LOADER MAGAZINE GRINDER-C Kya Gonzalez; MD Sadie Agustin [facility] Work Phone: Start: 07-24-2022 CT of soft tissues of neck with contrast LOADER MAGAZINE GRINDER-C Kya Gonzalez [employer] Work Phone: Start: 07-24-2022 CT of thorax with contrast LOADER MAGAZINE GRINDER-C Kya Gonzalez [employer] Work Phone: Start: 07-24-2022 End: 07-25-2022 Procedure Note: See Note; NOTES: [facility] Imaging Services [address] [place] [address] Chest WITH Contrast MR#: [id number] Acct: [id number] Name: MY JAMA Rep #: [id number] : 1960 M 62 From: Bib ghosh MD PCP: YARI Pardo Status: REG CLI Study: Chest WITH Contrast Date of Exam: 07/24/22 Exam# [id number] Ordering Dr: Quincy Simpson MD STUDY: CT [...] Signed: Bib Reeves MD at 13:10 EDT , CC: YARI Gonzalez; Dr. Quincy Simpson MD Radio Communications Superintendent: Signed Sadie Jack ORNELAS Work Phone: Start: 07-24-2022 End: 07-24-2022 Procedure Note: See Note; NOTES: [facility] Imaging Services [address] [place] [address] Soft Tissue Neck WITH Contrast MR#: [id number] Acct: [id number] Name: MY JAMA Rep #: [id number] : 1960 M 62 From: Bib ghosh MD PCP: Kya Gonzalez, LOADER MAGAZINE GRINDER-C Status: REG CLI Study: Soft Tissue Neck WITH Contrast Date of Exam: 09/23/21 Exam# [id number] Ordering Dr: Quincy Simpson MD STUDY: CT [...] region. Normal bilateral parotid glands. Normal bilateral executive consultant spaces. Normal bilateral parapharyngeal spaces. Normal [...] Signed: Bib Reeves MD at 15:31 EDT Reading Location ID and State: [facility] / [place] , Service support , CC: YARI Gonzalez; Dr. Quincy Simpson MD Radio Communications Superintendent: Signed Sadie Santiago CNP Work Phone: Start: 07-10-2022 End: 07-10-2022 Procedure Note: See Note; NOTES: [facility] [address] [place] [address] H P Exam - Wound Care 07/10/22 1242 MR#: [id number] Acct: [id number] Name: MY JAMA Rep #: [id number] : 1960 62 From: Maurice Spaulding MD [...] in the left sub-mandibular area. [facility] Medical History (Updated 07/10/22 @ [...] Date Recorded By Document 06/27/22 08:32 KR [id number] 06/27/22 08:38 KR Document 07/04/22 08:19 PL [id number] 07/04/22 08:21 PL Document 07/10/22 08:41 KR [id number] 07/10/22 08:45 KR 06/27/22 07/04/22 07/10/22 08:32 08:19 08:41 - Today's Visit Information Type of service Follow-up Visit Follow-up Visit Follow-up Visit (Physician/PHYSICIST [facility] (Physician/PHYSICIST [facility] (Physician/PHYSICIST [facility] ) ) ) Arrival Mode Ambulatory Ambulatory [...] Date Recorded By Document 06/27/22 08:32 VIC [id number] 06/27/22 08:38 KR Document 07/10/22 08:41 KR [id number] 07/10/22 08:45 KR 06/27/22 07/10/22 08:32 08:41 Wound Center Nurse 1 #2- L LAT LE -Current Size (cm) - Length 0.1 -Current Size (cm) - Width 0.1 -Current Size (cm) - Depth 0.1 -Total Square Cm 0.01 -Exudate Amt Medium -Exudate Type Serosanguineous -Wound Margin Distinct, Outline Attached -Granulation Amt Medium (34-66%) -Granulation Quality [place] -Necrosis Amt Small (1-33%) -Necrotic Tissue Type [...] (34-66%) None Present (0 %) -Granulation Quality [place] -Necrosis Amt Medium (34-66%) Large (67-100%) -Necrotic [...] Date Recorded By Document 06/27/22 08:44 MW [id number] 06/27/22 08:50 MW Document 07/04/22 08:45 MW [id number] 07/04/22 08:49 MW Document 07/10/22 10:59 PL [id number] 07/10/22 10:59 PL 06/27/22 07/04/22 07/10/22 08:44 [...] Date Recorded By Document 06/27/22 09:01 MW [id number] 06/27/22 09:02 MW Document 07/04/22 08:55 PL [id number] 07/04/22 08:56 PL Document 07/10/22 09:14 KR [id number] 07/10/22 09:14 KR 06/27/22 07/04/22 07/10/22 09:01 [...] Discussion, Demonstration -Response to teaching Verbalize understanding - Visit Discharge Discharge Condition Stable Stable [...] Signature (if applicable): CC: Signed Sadie Santiago [facility] Work Phone: Start: 06-15-2022 End: 06-15-2022 Modified Barium Swallow Study Procedure Note: See Note ; NOTES: [facility] Speech Pathology [address] [place] [address] Modified Barium Swallow Study MR#: [id number] Acct: [id number] Name: MY JAMA Rep #: [id number] : 1960 61 From: Latosha Boyer M.A., [facility]3]-BUSINESS OBJECTS DEVELOPER Modified Barium Swallow - Patient Information Study [...] purees due to increased difficulty swallowing solids. BUSINESS OBJECTS DEVELOPER recommended repeat MBSS to reassess swallow function [...] clearing trace residues lining the laryngeal vestibule. Clinton Thick Liquid via small single sip from [...] aspiration observed during the study; however, the BUSINESS OBJECTS DEVELOPER could not definitively rule out aspiration of [...] regarding diet recommendations, [place] Free Water Protocol (BUSINESS OBJECTS DEVELOPER provided pt and daughter handout after MBSS), [...] Active ST Patient: Active - Contact Information [facility] Speech Therapy:: Latosha Boyer M.A. CCC-BUSINESS OBJECTS DEVELOPER Speech-Language Pathologist [facility] [address] [place] [address] [email or web address] [phone] 06/15/22 14:26 06/15/22 1518 <Electronically signed by Latosha Boyer M.A., MARCIA-S LP> Date/Time Latosha Boyer M.A., CCC-BUSINESS OBJECTS DEVELOPER Co-Signature Required for all Medicare patients Date/Time Co-Signature CC: Sadie Santiago PHYSICIST [facility] Work Phone: Start: 06-15-2022 Timmy Gonzalez LOADER [employer]AZINE GRINDER Work Phone: Start: 05-23-2022 End: 05-23-2022 Oncology Visit Report Procedure Note: See Note; NOTES: [facility] [place] [address] [place] [address] OFFICE VISIT Date of Service: 05/23/22 1126 MR#: [id number] Acct: [id number] Name: MY JAMA Rep #: [id number] : 1960 From: Quincy Simpson MD Age/Sex: 61/M [place] [facility] Status: Signed HPI Subjective Date of Service [...] FINDINGS: Supraclavicular: No acute process within the obcfb-tw-ndon. Body wall soft tissues: No acute process. [...] AE1-3 (AE1/AE3/PCK26) positive CK7 (OV-TL12/30) negative CK8 (61zrunG40) positive, weak CK20 (KS20.8) negative TTF-1 (8G7G3/1) [...] Date of Last Treatment: 02/06/2022 [facility] Medical History Acid reflux Anemia [...] of first interosseous muscles. Coordination / Balance: bsppes-bl-oicw test normal Speech: speech abnormal Gait (Neuro): [...] reviewed with patient . Quincy Simpson MD Talent Specialist, [facility] Divisions of Medical Oncology Hematology Department of Internal Medicine [place] [address] This note was generated using a voice [...] Quincy Manley Signature: Date (if applicable) CC: YARI Santiago PHYSICIST [facility] Work Phone: Start: 04-30-2022 End: 04-30-2022 Radiation Oncology Visit Procedure Note: See Note; NOTES: [facility] [address] [address] OFFICE VISIT Date of Service: 04/30/22856 MR#: [id number] Acct: [id number] Name: MY JAMA Rep #: [id number] : 1960 From: Santiago Sellers DO Age/Sex: 61/M [place] [facility] Status: Signed Intake Vital Signs 03/27/22 09:27 [...] at any time. 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 Quincy Simpson MD; MD Sadie Agustin [facility] Work Phone: Start: 04-25-2022 End: 04-25-2022 Wound Ctr History AND Physical Comments: See Note; NOTES: [facility] [address] [place] [address] H P Exam - Wound Care 04/25/22 0958 MR#: [id number] Acct: [id number] Name: MY JAMA Rep #: [id number] : 1960 61 From: Joya BUNN PCP: [...] neck area open for healing. [facility] Medical History Acid reflux Anemia [...] Start: 04/25/22 08:52 Freq: Status: Active Protocol: DHAVAL.GILBERTOT Activity Type Activity Date Activity User E-sign Co-sign Detail Recorded Client Recorded Date Recorded By Document 04/25/22 08:55 [id number] 04/25/22 09:04 04/25/22 08:55 - Today's Visit Information Type [...] Date Recorded By Document 04/25/22 08:55 VIC [id number] 04/25/22 09:04 KR 04/25/22 08:55 Wound Center [...] Date Recorded By Document 04/25/22 09:49 PL [id number] 04/25/22 09:51 PL 04/25/22 09:49 Wound Center [...] Recorded Date Recorded By Document 04/25/22 09:21 [facility] [id number] 04/25/22 09:23 [facility] 04/25/22 09:21 Wound Care Nurse 3 #1 Chin -Ulcer Cleansing Rinsed/ Irrigated with Saline -Foul Odor after Cleansing No -Primary Dressing Applied Aquacel Extra -Primary Dressing Covered/Secured with Dry Gauze, Secured with Tape -Other Covering DRSG PER [place] SUPERVISOR NUTRITIONAL YEAST , PT TO USE SANTYL AT HOME [...] 1007 <Electronically signed by Joya Galvez NP LOADER MAGAZINE GRINDER-C> Cosigner Signature (if applicable): CC: Signed Sadie Santiago JOHNSON Work Phone: Start: 04-13-2022 End: 04-17-2022 Modified Barium Swallow Study Comments: See Note; NOTES: [facility] Speech Pathology [address] [place] [address] Modified Barium Swallow Study MR#: [id number] Acct: [id number] Name: MY JAMA Rep #: [id number] : 1960 61 From: Latosha Boyer M.A., [facility]3]-BUSINESS OBJECTS DEVELOPER Modified Barium Swallow - Patient Information Study [...] his beverage being expectorated from his trach. BUSINESS OBJECTS DEVELOPER recommended repeat MBS study to reassess swallow [...] Result: 3= enters airways/above vocal folds/not ejected [place] Thick Liquid via small single sip from cup Result: 1= does not enter airway Honey Thick Liquid via small single sip from cup Result: 1= does not enter airway - Cued the patient for cough and re-swallow to clear the laryngeal vestibule of trace residues from the sequential sips of thin via cup. BUSINESS OBJECTS DEVELOPER recommended placing PMSV and cleaned the valve [...] Active ST Patient: Active - Contact Information [facility] Speech Therapy:: Latosha Boyer M.A. CCC-BUSINESS OBJECTS DEVELOPER Speech-Language Pathologist [facility] [address] [place] [address] [email or web address] [phone] 04/13/22 12:15 04/13/22 1248 <Electronically signed by Latosha Boyer M.A., CCC-S LP> Date/Time Latosha Boyer M.A., CCC-BUSINESS OBJECTS DEVELOPER Co-Signature Required for all Medicare patients Date/Time Co-Signature CC: Sadie Santiago PHYSICIST [facility] Work Phone: Start: 04-13-2022 Timmy Gonzalez LOADER MAGAZINE GRINDER Work Phone: Start: 03-27-2022 End: 03-27-2022 Radiation Oncology Visit Comments: See Note; NOTES: [facility] [address] [place] [address] OFFICE VISIT Date of Service: 03/27/22924 MR#: [id number] Acct: [id number] Name: MY JAMA Rep #: [id number] : 1960 From: Santiago Sellers DO Age/Sex: 61/M [place] [facility] Status: Signed Intake Vital Signs 03/27/22 09:25 [...] peeling #85 grams 03/27/22 [Rx Confirmed 03/27/22] [facility] Medical History (Updated 02/27/22 @ 10:29 [...] at any time. 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 Quincy Simpson MD; MD Kya Agustin Work Phone: Start: 02-27-2022 End: 02-27-2022 Radiation Oncology Visit Comments: See Note; NOTES: [facility] [address] [address] OFFICE VISIT Date of Service: 02/27/22957 MR#: [id number] Acct: [id number] Name: MY JAMA Rep #: [id number] : 1960 From: Santiago Sellers Age/Sex: 61/M Location: [facility] Status: Signed Intake Vital Signs 02/27/22 10:05 [...] Days #60 cap 02/27/22 [Rx Confirmed 02/27/22] PFS PFS Medical History (Updated 02/27/22 @ 10:29 [...] at any time. 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 02/27/22 1101 <Electronically signed by Santiago Sellers DO> Date Santiago Royignallison Signature: Date (if applicable) CC: Kya Gonzalez Work Phone: Start: 02-14-2022 End: 02-14-2022 Oncology Visit Report Comments: See Note; NOTES: [facility] [address] [place] [address] OFFICE VISIT Date of Service: 02/14/22 1042 MR#: [id number] Acct: [id number] Name: MY JAMA Rep #: [id number] : 1960 From: Quincy Simpson MD Age/Sex: 61/M [place] [facility] Status: Signed HPI Subjective Date of Service [...] FINDINGS: Supraclavicular: No acute process within the ehrgm-ba-fwku. Body wall soft tissues: No acute process. [...] AE1-3 (AE1/AE3/PCK26) positive CK7 (OV-TL12/30) negative CK8 (25eaqfO98) positive, weak CK20 (KS20.8) negative TTF-1 (8G7G3/1) [...] Date of Last Treatment: 02/06/2022 [facility] Medical History Acid reflux Anemia [...] of first interosseous muscles. Coordination / Balance: cgbwnb-lj-zdng test normal Speech: speech abnormal Gait (Neuro): [...] reviewed with patient . Quincy Simpson MD Talent Specialist, [facility] Divisions of Medical Oncology Hematology Department of Internal Medicine [place] [address] This note was generated using a voice [...] Date (if applicable) CC: YARI Gonzalez; Dr. Santiago Sellers, DO Kya Gonzalez Work Phone: Start: 02-14-2022 End: 02-14-2022 Radiation Oncology Visit Comments: See Note; NOTES: [facility] [address] [address] OFFICE VISIT Date of Service: 02/14/22 1038 MR#: [id number] Acct: [id number] Name: MY JAMA Rep #: [id number] : 1960 From: Santiago Sellers DO Age/Sex: 61/M [place] [facility] Status: Signed Intake Vital Signs 02/14/22 10:38 [...] at any time. 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 Quincy Simpson MD; MD Kya Agustin Work Phone: Start: 02-06-2022 End: 02-06-2022 Radiation Oncology Visit Comments: See Note; NOTES: [facility] [address] [place] [address] OFFICE VISIT Date of Service: 02/06/22924 MR#: [id number] Acct: [id number] Name: MY JAMA Rep #: [id number] : 1960 From: Santiago Sellers DO Age/Sex: 61/M Location: [facility] Status: Signed End of Treatment Summary: Diagnosis: [...] this patient. Sincerely, Santiago Sellers DO, MS Talent Specialist, Department of Radiation Oncology [facility] 02/06/22 0941 <Electronically signed by Santiago Sellers DO> Date Santiago Sellers DO Cosigner Signature: Date (if applicable) CC: LOADER MAGAZINE GRINDER-Damaris Gonzalez; Dr. Quincy Simpson MD; MD Kya Agustin Work Phone: Start: 01-31-2022 End: 01-31-2022 Radiation Oncology Visit Comments: See Note; NOTES: [facility] [address] [address] OFFICE VISIT Date of Service: 01/31/22 0847 MR#: [id number] Acct: [id number] Name: MY JAMA Rep #: [id number] : 1960 From: Santiago Sellers DO Age/Sex: 61/M Location: [facility] Status: Signed Intake Intake Visit Reasons: OTV [...] follow up, weight stable to slightly decreased BUSINESS OBJECTS DEVELOPER: continue following during XRT Rinses: continue recommended baking soda/salt rinses 4-6/d, green tea rinses 2-3/d Follow up in 2 weeks or sooner if needed. Thank you for allowing me to participate in the management and care of your patient. If I may answer any questions in the interim, please do not hesitate to contact me at any time. 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 [address] OFFICE VISIT Date of Service: 01/31/22829 MR#: [id number] Acct: [id number] Name: MY JAMA Rep #: [id number] : 1960 From: Quincy Simpson MD Age/Sex: 61/M Location: [facility] Status: Signed HPI Subjective Date of Service [...] FINDINGS: Supraclavicular: No acute process within the ooofp-uf-phfd. Body wall soft tissues: No acute process. 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 [facility] Medical History Acid reflux Anemia [...] of first interosseous muscles. Coordination / Balance: cimuzc-ij-tbeu test normal Speech: speech abnormal Gait (Neuro): [...] reviewed with patient . Quincy Simpson MD Talent Specialist, [facility] Divisions of Medical Oncology Hematology Department of Internal Medicine [place] [facility] [address] [address] This note was generated using a voice [...] Radiation Oncology Visit Comments: See Note; NOTES: [facility] [place] [address] OFFICE VISIT Date of Service: 01/24/22 1029 MR#: [id number] Acct: [id number] Name: MY JAMA Rep #: [id number] : 1960 From: Santiago Sellers DO Age/Sex: 61/M [place] [facility]: Signed Intake Vital Signs 01/24/22 10:30 [...] follow up, weight stable to slightly decreased BUSINESS OBJECTS DEVELOPER: continue following during XRT Rinses: continue recommended baking soda/salt rinses 4-6/d, green tea rinses 2-3/d Follow up next week or sooner if needed. Thank you for allowing me to participate in the management and care of your patient. If I may answer any questions in the interim, please do not hesitate to contact me at any time. 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 01/24/22 1052 <Electronically signed by Santiago PADILLA Date Santiago Royignallison Signature: Date (if applicable) CC: Kya Gonzalez Work Phone: Start: 01-22-2022 End: 01-22-2022 Chest PA and Lateral Comments: See Note; NOTES: [facility] Imaging Services [address] [place] [address] Chest PA and Lateral MR#: [id number] Acct: [id number] Name: MY JAMA Rep #: [id number] : 1960 M 61 From: Charles Tyler PCP: Kya Gonzalez, LOADER MAGAZINE GRINDER-C Status: REG ER Study: Chest PA and Lateral Date of Exam: 01/22/22 Exam# [id number] Ordering Dr: Cesar Mcbride MD STUDY: X-RAY CHEST REASON FOR EXAM: Male, 61 years old. Productive cough, wheezing, shortness of breath TECHNIQUE: XR Chest 2 Views COMPARISON: 08.23.21 FINDINGS: There is no demonstrated pleural abnormality. [...] Charles Ayala MD at 21:32 EDT , CC: LOADER MAGAZINE GRINDERLulu Gonzalez; Dr. Cesar Mcbride MD Radio Communications Superintendent: Signed Kya Gonzalez Work Phone: Start: 01-22-2022 Plain chest X-ray LOADER MAGAZINE GRINDER-C Kya Gonzalez [employer]ER Work Phone: Start: 01-22-2022 End: 01-22-2022 Emergency Department Summary Comments: See Note; NOTES: [facility] Medical Records Department [address] [place] [address] Emergency Department Summary 01/22/22 MR#: [id number] Acct: [id number] Name: MY JAMA Rep #: [id number] : 1960 61 From: Cesar Mcbride MD [...] undergoing chemotherapy. He is status post tracheostomy. [facility] Medical History Acid reflux Anemia Cancer [...] oriented x3 and CN's II-XII intact bilaterally Niland Coma Scale: document GCS findings Spontaneous Obeys Commands Oriented 15 Sensorium / Orientation: alert Psych mental status grossly normal Thought Process: normal thought process Skin No no wounds Skin Narrative: Wound previously described left calf General Skin Exam: Negative for jaundice or pallor Lesions: No no lesions Rashes: No no rashes [facility] MDM Lab Data Attestation: I reviewed the [...] 80.0 H Lymph % (Auto) 7.4 L Lyon % (Auto) 11.7 H Eos % (Auto) [...] (Rate is 70. The EKG is normal. HI interval 70 ms. QRS duration is 170 ms. QRS durations 90 ms. QT duration 394 ms. 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 Call [facility] ([phone]) or report to the closest Emergency Room. Call 911 if necessary. 01/22/222146 <Electronically signed by Cesar Mcbride MD> Cosigner Signature (if applicable): CC: YARI Gonzalez Signed Kya Gonzalez Work Phone: Start: 01-17-2022 End: 01-24-2022 Radiation Oncology Visit Comments: See Note; NOTES: [facility] [address] [place] [address] OFFICE VISIT Date of Service: 01/17/22 0846 MR#: [id number] Acct: [id number] Name: MY JAMA Rep #: [id number] : 1960 From: Santiago Sellers DO Age/Sex: 61/M [place] [facility] Status: Signed Intake Vital Signs 01/17/22 11:57 BP 127/70 H Blood Pressure Location Rt brachial Position Sitting Respiration 16 Pulse 66 Pulse Source Monitor Temp 98 F Temperature Source Tympanic Pulse Oximetry (%) 100 Oxygen Delivery Method room air Intake Visit Reasons: OTV Chief Complaint: Recurrent squamous cell cancer of the head and neck on treatment Chronometer Assembler And Adjuster Required: No Is patient in pain?: No Allergies No Known Allergies Allergy (Verified 01/17/22 09:25) [facility] Medical History Acid reflux Anemia Cancer [...] via PEG, continue follow up, weight stable BUSINESS OBJECTS DEVELOPER: continue following during XRT Rinses: continue recommended [...] Radiation Oncology Visit Comments: See Note; NOTES: [facility] [address] [address] OFFICE VISIT Date of Service: 01/10/22 1033 MR#: [id number] Acct: [id number] Name: MY JAMA Rep #: [id number] : 1960 From: Santiago Sellers DO Age/Sex: 61/M Location: [facility] Status: Signed Intake Intake Visit Reasons: OTV Chief Complaint: 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 Thank you for allowing me to participate in the management and care of your patient. If I may answer any questions in the interim, please do not hesitate to contact me at any time. 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 [address] OFFICE VISIT Date of Service: 01/10/22911 MR#: [id number] Acct: [id number] Name: MY JAMA Rep #: [id number] : 1960 From: Marce Maxwell NP LOADER MAGAZINE GRINDER ChristineC Age/Sex: 61/M Location: [facility] Status: Signed HPI Subjective Date of Service [...] FINDINGS: Supraclavicular: No acute process within the saawo-qp-fobb. Body wall soft tissues: No acute process. [...] AE1-3 (AE1/AE3/PCK26) positive CK7 (OV-TL12/30) negative CK8 (77pffpT35) positive, weak CK20 (KS20.8) negative TTF-1 (8G7G3/1) [...] nausea, Chronic exertional dyspnea unchanged. [facility] Medical History (Updated 01/10/22 @ 10:14 by Marce Maxwell LOADER MAGAZINE GRINDER, LOADER MAGAZINE GRINDER-C) Acid reflux Anemia Cancer related pain Cellulitis [...] management: Status: Acute Plan - Marce Maxwell LOADER MAGAZINE GRINDER, LOADER MAGAZINE GRINDER-C: 60-year-old male ex-smoker, in addition to excessive [...] 01/10/22 1014 <Electronically signed by Marce Maxwell NP, NP-C> Date Marce Maxwell NP, NP-C Cosigner Signature: Date (if applicable) CC: Kya Gonzalez Work Phone: Start: 01-08-2022 End: 01-08-2022 Modified Barium Swallow Study Comments: See Note; NOTES: [facility] Speech Pathology [address] [place] [address] Modified Barium Swallow Study MR#: [id number] Acct: [id number] Name: ANAMY Yamilet Rep #: [id number] : 1960 61 From: Latosha Boyer M.A., [facility]3]-BUSINESS OBJECTS DEVELOPER Modified Barium Swallow - Patient Information Study [...] Result: 3= enters airways/above vocal folds/not ejected Clinton Thick Liquid via small single sip from [...] Active ST Patient: Active - Contact Information [facility] Speech Therapy:: Latosha Boyer M.A. CCC-BUSINESS OBJECTS DEVELOPER Speech-Language Pathologist [facility] [address] [place] [address] [email or web address] [phone] 01/08/22 17:21 01/08/22 1739 <Electronically signed by Latosha Boyer M.A., CCC-S LP> Date/Time Latosha Boyer M.A., CCC-BUSINESS OBJECTS DEVELOPER Co-Signature Required for all Medicare patients Date/Time Co-Signature CC: Kya Gonzalez Work Phone: Start: 01-08-2022 Videoswallow LOADER MAGAZINE GRINDER-C Kya Gonzalez LOADER MAGAZINE GRINDER Work Phone: Start: 01-04-2022 End: 01-08-2022 Radiation Oncology Visit Comments: See Note; NOTES: [facility] [address] [place] [address] OFFICE VISIT Date of Service: 01/04/22 0857 MR#: [id number] Acct: [id number] Name: MY JAMA Rep #: [id number] : 1960 From: Santiago Verito REN Age/Sex: 61/M [place] [facility] Status: Signed Intake Vital Signs 01/04/22 08:57 Weight: 124 lb 7 oz BP 118/64 Blood Pressure Location Rt brachial Position Sitting Respiration 14 Pulse 70 Pulse Source Monitor Temp 98.7 F Temperature Source Tympanic Pulse Oximetry (%) 93 Oxygen Delivery Method room air Intake Visit Reasons: OTV Chief Complaint: 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 Body wall soft tissues: No acute process. [...] AE1-3 (AE1/AE3/PCK26) positive CK7 (OV-TL12/30) negative CK8 (28dmwgZ85) positive, weak CK20 (KS20.8) negative TTF-1 (8G7G3/1) [...] AUC 2 December 20, 2021-. [facility] Medical History Acid reflux Anemia [...] of first interosseous muscles. Coordination / Balance: cgyybi-wp-nwsk test normal Speech: speech abnormal Gait (Neuro): [...] reviewed with patient . Quincy Simpson MD Talent Specialist, [facility] Divisions of Medical Oncology Hematology Department of Internal Medicine [place] [address] This note was generated using a voice [...] Radiation Oncology Visit Comments: See Note; NOTES: [facility] [address] [address] OFFICE VISIT Date of Service: 12/27/21 1048 MR#: [id number] Acct: [id number] Name: MY JAMA Rep #: [id number] : 1960 From: Santiago Sellers DO Age/Sex: 61/M Location: [facility] Status: Signed Intake Intake Visit Reasons: OTV Chief Complaint: 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 Small volume mostly soft [...] and RT today. Discussed with Med Onc LOADER MAGAZINE GRINDER Plan: Continue treatment as planned. I have [...] Oncology Visit Report Comments: See Note; NOTES: [facility] [place] [address] [place] [address] OFFICE VISIT Date of Service: 12/27/21 0858 MR#: [id number] Acct: [id number] Name: MY JAMA Rep #: [id number] : 1960 From: Marce Maxwell NP LOADER MAGAZINE GRINDER -C Age/Sex: 61/M Location: [facility] Status: Signed HPI Subjective Date of Service [...] FINDINGS: Supraclavicular: No acute process within the jgsof-mp-oqag. Body wall soft tissues: No acute process. [...] AE1-3 (AE1/AE3/PCK26) positive CK7 (OV-TL12/30) negative CK8 (27pbmkT54) positive, weak CK20 (KS20.8) negative TTF-1 (8G7G3/1) [...] atb was going to be called to [facility] in [place] last week, however pharmacy stated they never [...] nausea, Chronic exertional dyspnea unchanged. [facility] Medical History (Updated 12/27/21 @ 12:21 by Marce Maxwell LOADER MAGAZINE GRINDER, LOADER MAGAZINE GRINDER-C) Acid reflux Anemia Cancer related pain Cellulitis [...] 96 Oxygen Delivery Method room air Intake Chronometer Assembler And Adjuster Required: No Accompanied by: self Is patient [...] mL 0RF T81.89XD Plan - Marce Maxwell LOADER MAGAZINE GRINDER, LOADER MAGAZINE GRINDER-C: 61-year-old male ex-smoker, in addition to excessive [...] will send rx for doxycycline. Will have [facility] retail deliver to confirm patient goes [...] 1222 <Electronically signed by Marce Maxwell NP LOADER MAGAZINE GRINDER-C> Date Marce Maxwell NP LOADER MAGAZINE GRINDER-C Cosigner Signature: Date (if applicable) CC: LOADER MAGAZINE GRINDER-C Kya Riveromeganchioma Work Phone: Start: 12-20-2021 End: 12-20-2021 Radiation Oncology Visit Comments: See Note; NOTES: [facility] [place] [address] OFFICE VISIT Date of Service: 12/20/21 1113 MR#: [id number] Acct: [id number] Name: MY JAMA Rep #: [id number] : 1960 From: Santiago Sellers DO Age/Sex: 61/M Location[place] [facility] Status: Signed Intake Vital Signs 12/20/21 11:13 Blood Pressure Location Rt brachial Position Sitting Respiration 18 Pulse 69 Pulse Source Monitor Temp 98.3 F Temperature Source Tympanic Pulse Oximetry (%) 98 Oxygen Delivery Method room air Intake Visit Reasons: OTV Chief Complaint: 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 [place] [address] / REHABILITATION SERVICES INITIAL EVALUATION MR#: [id number] Acct: [id number] Name: MY JAMA Rep #: [id number] : 1960 61 From: Latosha Boyer M.A., CCC-BUSINESS OBJECTS DEVELOPER Referring Dr.: Dr. 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 Santiago Sellers DO MW Signed Kya Gonzalez Work Phone: Start: 12-18-2021 End: 12-18-2021 Venous Duplex US, Unilateral Comments: See Note; NOTES: [facility] Cardiovascular Services [address] [place] [address] Venous Duplex US, Unilateral 12/18/21 0958 MR#: [id number] Acct: [id number] Name: MY JAMA Rep #: [id number] : 1960 61 From: Donaldo Nichole MD [...] _ Ordering Physician: Quincy Simpson Referring Physician: yKa Gonzalez Performed By: Janette Gaffney RVT 12/18/211919 Date Donaldo Nichole MD CC: LOADER MAGAZINE GRINDER-C Kya Gonzalez; Dr. Quincy Simpson MD Date Dictated: 12/18/21957 Date Transcribed: 12/18/211919 Radio Communications Superintendent: Signed Kya Gonzalez Work Phone: Start: 12-18-2021 End: 12-18-2021 Oncology Visit Report Comments: See Note; NOTES: [facility] [address] [place] [address]. [place] [address] OFFICE VISIT Date of Service: 12/18/21847 MR#: [id number] Acct: [id number] Name: MY JAMA Rep #: [id number] : 1960 From: Quincy Simpson MD Age/Sex: 61/M Location[place] [facility] Status: Signed HPI Subjective Date of Service [...] FINDINGS: Supraclavicular: No acute process within the kucdk-fs-fdwy. Body wall soft tissues: No acute process. [...] AE1-3 (AE1/AE3/PCK26) positive CK7 (OV-TL12/30) negative CK8 (35kexsB55) positive, weak CK20 (KS20.8) negative TTF-1 (8G7G3/1) [...] to start December 20, 2021. [facility] Medical History Acid reflux Anemia [...] this report are calculated using the exclusive [employer] Technology. (U.S. Patent No. 10, 674, 983). [...] of first interosseous muscles. Coordination / Balance: dzxvxf-vj-govb test normal Speech: speech abnormal Gait (Neuro): [...] reviewed with patient . Quincy Simpson MD Talent Specialist, [facility] Divisions of Medical Oncology Hematology Department of Internal Medicine [place] [phone] This note was generated using a voice [...] Date (if applicable) CC: YARI Gonzalez; Dr. Santiago Sellers, DO Kya Gonzalez Work Phone: Start: 12-15-2021 End: 12-15-2021 Emergency Department Summary Comments: See Note; NOTES: [facility] Medical Records Department [address] [place] [address] Emergency Department Summary 12/15/21 MR#: [id number] Acct: [id number] Name: MY JAMA Rep #: [id number] : 1960 61 From: Rayray Perez DO [...] Patient denies any fevers or chills. PFSH PFSH Medical History Acid reflux Anemia [...] a prescription for a short course of [place]. Patient was instructed to follow-up with Dr. [...] 75.7 H Lymph % (Auto) 11.1 L Lyon % (Auto) 11.9 H Eos % (Auto) [...] Brooks MD [NON-STAFF] - Kya Gonzalez NP, LOADER MAGAZINE GRINDER-C [Primary Care Provider] - Disposition Disposition: Home, Self Care What to do if you have Problems For any increased pain, shortness of breath, bleeding, nausea or vomiting, chest pain, or any unexpected problems, contact your Primary Care Provider. Call [facility] ([phone]) or report to the closest Emergency Room. Call 911 if necessary. 12/15/212211 <Electronically signed by Rayray Perez DO> Cosigner Signature (if applicable): CC: LOADER MAGAZINE GRINDER-C Kya Gonzalez Signed Kya Gonzalez Work Phone: Start: 12-10-2021 End: 12-10-2021 Emergency Department Summary Comments: See Note; NOTES: [facility] Medical Records Department [address] [place] [address] Emergency Department Summary 12/10/21 MR#: [id number] Acct: [id number] Name: MY JAMA Rep #: [id number] : 1960 61 From: Aiden Pierre DO PCP: YARI Pardo Status:REG ER Location: ED HPI History of Present Illness Chief Complaint: Shortness of Breath Narrative Narrative: as well as history of tracheostomy presenting bsb86-svyg-qvq male with history of head and neck [...] is unable to contact anybody on Saturday. [facility] Medical History Acid reflux Anemia Cancer [...] Provider: Kya Gonzalez NP Referrals: Kya Gonzalez LOADER MAGAZINE GRINDER, LOADER MAGAZINE GRINDER-C [Primary Care Provider] - Disposition Disposition: Home, Self Care What to do if you have Problems For any increased pain, shortness of breath, bleeding, nausea or vomiting, chest pain, or any unexpected problems, contact your Primary Care Provider. Call [facility] ([phone]) or report to the closest Emergency Room. Call 911 if necessary. 12/10/211821 <Electronically signed by Aiden Pierre DO> Cosigner Signature (if applicable): CC: LOADER MAGAZINE GRINDER-C Kya Gonzalez Signed Kya Gonzalez Work Phone: Start: 12-07-2021 End: 12-07-2021 Radiation Oncology Visit Comments: See Note; NOTES: [facility] [address] [place] [address] OFFICE VISIT Date of Service: 12/07/21 1424 MR#: [id number] Acct: [id number] Name: MY JAMA Rep #: [id number] : 1960 From: Santiago Sellers Age/Sex: 61/M [place] [facility] Status: Signed Intake Vital Signs 12/07/21 14:25 [...] lbs 4 oz (weight at end of BREAD STACKER 03/25/2019: 126.6 lbs) ECO KARNOFSKY SCORE: 80% [...] at any time. 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 Quincy Simpson MD; Dr. Rachel Brooks MD; MD Kya Felix Work Phone: Start: 12-05-2021 End: 12-18-2021 Emergency Department Summary Comments: See Note; NOTES: [facility] Medical Records Department [address] [place] [address] Emergency Department Summary 12/05/21 MR#: [id number] Acct: [id number] Name: MY JAMA Rep #: [id number] : 1960 61 From: Avinash Rod DO PCP: YARI Pardo Status:REG ER Location: ED HPI Narrative Narrative: Patient is a 61-year-old male who has a history of jaw/throat cancer. He was recently at the [facility] for surgery of this jaw/throat cancer [...] done with his recent stay at the [facility] and therefore does not want them [...] Kya Gonzalez NP Referrals: Kya Gonzalez NP, AJAY-Damaris [Primary Care Provider] - Disposition Disposition: Home, Self Care What to do if you have Problems For any increased pain, shortness of breath, bleeding, nausea or vomiting, chest pain, or any unexpected problems, contact your Primary Care Provider. Call [facility] ([phone]) or report to the closest Emergency Room. Call 911 if necessary. 12/05/21 0516 <Electronically signed by Avinash Rod DO> Cosigner Signature (if applicable): CC: YARI Gonzalez Signed Kya Gonzalez Work Phone: Start: 10-11-2021 End: 10-13-2021 PET/CT Tumor Base -Thigh Subs Comments: See Note; NOTES: [facility] Imaging Services [address] [place] [address] PET/CT Tumor Base -Thigh Subs MR#: [id number] Acct: [id number] Name: MY JAMA Rep #: [id number] : 1960 M 61 From: Narendra Seay PCP: YARI Pardo Status: REG RCR Study: PET/CT Tumor Base -Thigh Subs Date of Exam: Exam# [id number] Ordering Dr: Quincy Simpson MD EXAMINATION: FDG [...] this report are calculated using the exclusive [employer] Technology. (U.S. Patent No. 10, 674, 983). Standardization and correction of the FDG SUV metric via ACCUQUAN technology allow for vendor non-specific objective quantitative examination comparison and optimization of the sensitivity and specificity of the FDG PET-CT examination. Electronically Signed: Narendra Weathers DO at 22:31 EST Tel , Service support , CC: YARI Gonzalez; Dr. Quincy Simpson MD Radio Communications Superintendent: Signed Kya Gonzalez PHYSICIST [employer] Work Phone: Start: 10-11-2021 PET/CT Tumor Base -Thigh Subs LOADER MAGAZINE GRINDER-Damaris Gonzalez LOADER MAGAZINE GRINDER Work Phone: Start: 08-23-2021 CT of soft tissues of neck with contrast LOADER MAGAZINE GRINDER-Damaris Gonzalez LOADER MAGAZINE GRINDER Work Phone: Start: 08-23-2021 End: 08-24-2021 Chest PA and Lateral Comments: See Note; NOTES: [facility] Imaging Services [address] [place] [address] Chest PA and Lateral MR#: [id number] Acct: [id number] Name: MY JAMA Rep #: [id number] : 1960 M 61 From: Bib ghosh MD PCP: YARI Pardo Status: REG RCR Study: Chest PA and Lateral Date of Exam: 08/23/21 Exam# [id number] Ordering Dr: Joya Galvez NP N P-C [...] support , CC: YARI Galvez; YARI Gonzalez Radio Communications Superintendent: Signed Kya Gonzalez CNP Work Phone: Start: 08-23-2021 Plain chest X-ray LOADER MAGAZINE GRINDERLulu Gonzalez LOADER MAGAZINE GRINDER Work Phone: Start: 08-23-2021 End: 08-24-2021 Soft Tissue Neck WITH Contrast Comments: See Note; NOTES: [facility] Imaging Services [address] [place] [address] Soft Tissue Neck WITH Contrast MR#: [id number] Acct: [id number] Name: MY JAMA Rep #: [id number] : 1960 M 61 From: Bib ghosh MD PCP: Kya Gonzalez, LOADER MAGAZINE GRINDER-C Status: REG CLI Study: Soft Tissue Neck WITH Contrast Date of Exam: 10/24/20 Exam# [id number] Ordering Dr: Santiago Sellers DO STUDY: CT [...] be. Normal bilateral parotid glands. Normal bilateral executive consultant spaces. Normal bilateral parapharyngeal spaces. Normal [...] CC: YARI Gonzalez; Dr. 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: PLAN: [facility] preauthorization with insurance [employer] 2 YARELIS for 90 minutes without air [...] per day for 30 days [facility] Medical History Acid reflux Anemia [...] Date Recorded By Document 08/23/21 08:11 VIC [id number] 08/23/21 08:25 VIC 08/23/21 08:11 WC - [...] Manual 08/23/21 0918 <Electronically signed by Joya Galevz NP LOADER MAGAZINE GRINDER-C> Cosigner Signature (if applicable): CC: Signed Kya Gonzalez JOHNSON Work Phone: Start: 08-11-2021 End: 08-11-2021 Radiation Oncology Visit Comments: See Note; NOTES: [facility] [address] [place] [address] OFFICE VISIT Date of Service: 08/11/21 1036 MR#: [id number] Acct: [id number] Name: MY JAMA Rep #: [id number] : 1960 From: Santiago Sellers DO Age/Sex: 61/M [place] [facility] Status: Signed Intake Vital Signs 08/11/21 10:36 Weight: 129 lb 2 oz BP 181/82 H Blood Pressure Location Lt brachial Position Sitting Respiration 14 Pulse 82 Pulse Source Monitor Temp 98.2 F Temperature Source Tympanic Pulse Oximetry (%) 100 Oxygen Delivery Method room air Intake Visit Reasons: FOLLOWUP HEAD/NECK Chief Complaint: squamous cell cancer of the head and neck follow-up Chronometer Assembler And Adjuster Required: No Is patient in pain?: No [...] lbs 2 oz (weight at end of BREAD STACKER 03/25/2019: 126.6 lbs) ECO KARNOFSKY SCORE: 80% [...] He will also continue to follow-up with BUSINESS OBJECTS DEVELOPER as indicated but is swallowing well. He [...] at any time. Santiago Sellers DO, MS Talent Specialist, Department of Radiation Oncology [facility] Coding Level of Care Code Off vis,est,level 3 Diagnoses History of head and neck cancer Z85.89 08/11/21 1124 <Electronically signed by Santiago Sellers DO> Date Santiago Sellers DO Cosigner Signature: Date (if applicable) CC: LOADER MAGAZINE GRINDER-C Kya Gonzalez; Dr. Renny Burgos MD; Dr. Quincy Simpson MD; DEYSI Puentes CNP Work Phone: Start: 07-18-2021 End: 07-19-2021 Emergency Department Summary Comments: See Note; NOTES: [facility] Medical Records Department [address] [place] [address] Emergency Department Summary 07/18/21 MR#: [id number] Acct: [id number] Name: MY JAMA Rep #: [id number] : 1960 61 From: Jason Robles DO [...] was concerned about potential for systemic infection. [facility] Medical History (Updated 07/18/21 @ 15:19 [...] % (Auto) 65.9 Lymph % (Auto) 20.1 Lyon % (Auto) 11.9 H Eos % (Auto) [...] Provider: Kya Gonzalez NP Referrals: Kya Gonzalez LOADER MAGAZINE GRINDER, LOADER MAGAZINE GRINDER-C [Primary Care Provider] - 3-5 Days Disposition Disposition: Home, Self Care What to do if you have Problems For any increased pain, shortness of breath, bleeding, nausea or vomiting, chest pain, or any unexpected problems, contact your Primary Care Provider. Call [facility] ([phone]) or report to the closest Emergency Room. Call 911 if necessary. 07/18/21 1554 <Electronically signed by Jason Robles DO> Cosigner Signature (if applicable): CC: LOADER MAGAZINE GRINDER-Damaris Gonzalez Signed Kya Gonzalez CNP Work Phone: Start: 07-18-2021 End: 07-18-2021 CTA Head AND Neck W/ Contrast Comments: See Note; NOTES: [facility] Imaging Services [address] [place] [address] CTA Head AND Neck W/ Contrast MR#: [id number] Acct: [id number] Name: ANAMY W Rep #: [id number] : 1960 M 61 From: Bib ghosh MD PCP: Kya Gonzalez LOADER MAGAZINE GRINDERChristineC Status: REG ER Study: CTA Head AND Neck W/ Contrast Date of Exam: Exam# [id number] Ordering Dr: Jason Robles DO STUDY: CTA [...] There is no demonstrated aneurysm of the jamul of Flynn. A tiny lacuna is seen [...] CC: YARI Gonzalez; Dr. Jason Robles DO Radio Communications Superintendent: Signed Kya Gonzalez CNP Work Phone: Start: 05-15-2021 End: 05-15-2021 Radiation Oncology Visit Comments: See Note; NOTES: [facility] [address] [place] [address] OFFICE VISIT Date of Service: 05/15/21 1058 MR#: [id number] Acct: [id number] Name: MY JAMA Yamilet Rep #: [id number] : 1960 From: Santiago Sellers DO Age/Sex: 60/M [place] [facility] [place]: Signed Intake Vital Signs 05/15/21 10:58 Weight: 124 lb BP 166/85 H Blood Pressure Location Lt brachial Position Sitting Respiration 14 Pulse 86 Pulse Source Monitor Temp 98.2 F Temperature Source Tympanic Pulse Oximetry (%) 98 Oxygen Delivery Method room air Intake Visit Reasons: FOLLOWUP HEAD/NECK CANCER Chief Complaint: squamous cell cancer of the head and neck follow-up Chronometer Assembler And Adjuster Required: No Is patient in pain?: No Allergies No Known Allergies Allergy (Verified 05/15/21 11:01) Medications Levothyroxine PO 08/25/20 [History Confirmed 05/15/21] PFSH PFS Medical History (Updated 03/20/21 @ [...] Weight: 124 lbs (weight at end of BREAD STACKER 03/25/2019: 126.6 lbs) ECO KARNOFSKY SCORE: 80% [...] He will also continue to follow-up with BUSINESS OBJECTS DEVELOPER as indicated but is swallowing well. He [...] me at any time. Santiago Sellers DO, Talent Specialist, Department of Radiation Oncology [facility] Coding Level of Care Code Off vis,est,level 3 Diagnoses History of head and neck cancer Z85.89 05/15/21 1124 <Electronically signed by Santiago Sellers DO> Date Santiago Sellers DO Cosigner Signature: Date (if applicable) CC: LOADER MAGAZINE GRINDER-C Kya Gonzalez; Dr. Renny Burgos MD; MD Kya Zaman PHYSICIST [employer] Work Phone: Start: 03-20-2021 End: 03-20-2021 Radiation Oncology Visit Comments: See Note; NOTES: [facility] [address] 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 He [...] at any time. Santiago Sellers DO, MS Talent Specialist, Department of Radiation Oncology [facility] Coding Level of Care Code Off vis,est,level 3 Diagnoses History of head and neck cancer Z85.89 03/20/21 1202 <Electronically signed by Santiago Sellers DO> Date Santiago Sellers DO Cosigner Signature: Date (if applicable) CC: LOADER MAGAZINE GRINDER-C Kya Gonzalez; Dr. Renny Burgos MD; MD Kya Zaman PHYSICIST [employer] Work Phone: Start: 03-08-2021 End: 03-08-2021 Oncology Visit Report Comments: See Note; NOTES: [facility] [address] [place] [address] OFFICE VISIT Date of Service: 03/08/21 0950 MR#: [id number] Acct: [id number] Name: MY JAMA Rep #: [id number] : 1960 From: Quincy Simpson MD Age/Sex: 60/M Location: [facility] [place] Status: Signed HPI Subjective Date of Service [...] FINDINGS: Supraclavicular: No acute process within the vhnka-yy-ippv. Body wall soft tissues: No acute process. [...] AE1-3 (AE1/AE3/PCK26) positive CK7 (OV-TL12/30) negative CK8 (96nohaP75) positive, weak CK20 (KS20.8) negative TTF-1 (8G7G3/1) [...] Date of Last Treatment: 03/25/2019 [facility] Medical History (Updated 03/08/21 @ [...] 100 Oxygen Delivery Method room air Intake Chronometer Assembler And Adjuster Required: No Accompanied by: Self Is patient [...] no focal motor deficits Coordination / Balance: jlvcmj-ye-tksa test normal Speech: speech normal Gait (Neuro): [...] reviewed with patient . Quincy Simpson MD Talent Specialist, [facility] Divisions of Medical Oncology Hematology Department of Internal Medicine [place] [phone] This note was generated using a voice [...] MD Cosigner Signature: Date (if applicable) CC: LOADER MAGAZINE GRINDER-Damaris Gonzalez [facility] Work Phone: Start: 02-27-2021 End: 02-27-2021 Chest WITH Contrast Comments: See Note; NOTES: [facility] Imaging Services [address] [place] [address] Chest WITH Contrast MR#: [id number] Acct: [id number] Name: MY JAMA Rep #: [id number] : 1960 60 From: Bib ghosh MD PCP: YARI Pardo Status: REG CLI Study: Chest WITH Contrast Date of Exam: 02/27/21 Exam# [id number] Ordering Dr: Quincy Simpson MD STUDY: CT [...] CC: YARI Gonzalez; Dr. Quincy Simpson MD Radio Communications Superintendent: Signed Kya Gonzalez PHYSICIST [employer] Work Phone: Start: 11-28-2020 End: 11-28-2020 Oncology Visit Report Comments: See Note; NOTES: [facility] [address] [place] [address] OFFICE VISIT Date of Service: 11/28/20 1544 MR#: [id number] Acct: [id number] Name: MY JAMA Rep #: [id number] : 1960 From: Quincy Simpson MD Age/Sex: [...] FINDINGS: Supraclavicular: No acute process within the vvgft-jf-hgcl. Body wall soft tissues: No acute process. [...] AE1-3 (AE1/AE3/PCK26) positive CK7 (OV-TL12/30) negative CK8 (66mckcO81) positive, weak CK20 (KS20.8) negative TTF-1 (8G7G3/1) [...] reviewed with patient . Quincy Simpson MD Talent Specialist, [facility] Divisions of Medical Oncology Hematology Department of Internal Medicine [place] [address] This note was generated using a voice [...] Provider: Kya Gonzalez NP Referring Provider: 11/28/20 6949 <Electronically signed by Quincy Simpson MD> Date Quincy Simpson MD Cosigner Signature: Date (if applicable) CC: YARI Gonzalez Start: 10-31-2020 End: 10-31-2020 Oncology Follow-Up Visit Comments: See Note; NOTES: [facility] Medical Records Department [address] [place] [address] Oncology Follow-Up Visit 10/31/20 1611 MR#: [id number] Acct: [id number] Name: MY JAMA Rep #: [id number] : 1960 60 From: Santiago Verito REN PCP: YARI Pardo Status:REG RCR Y Location: [facility] Date of Service: 10/31/20 Last Clinic Visit: [...] Weight: 128.2 lbs (weight at end of BREAD STACKER 03/25/2019: 126.6 lbs) Vital Signs Temperature 99.4 [...] will also continue to follow- up with BUSINESS OBJECTS DEVELOPER as indicated but is swallowing well. He [...] in the interim. Santiago Sellers DO, MS Talent Specialist, Department of Radiation Oncology [facility] 10/31/20 1622 <Electronically signed by Santiago Sellers DO> Date Santiago Sellers DO CC: Dr. Renny Burgos MD; Dr. Quincy Simpson MD Signed Kya Gonzalez Start: 09-02-2020 End: 09-02-2020 Chest WITH Contrast Comments: See Note; NOTES: [facility] Imaging Services [address] [place] [address] Chest WITH Contrast MR#: [id number] Acct: [id number] Name: MY JAMA Rep #: [id number] : 1960 M 60 From: Gin Tyler PCP: Kya Gonzalez LOADER MAGAZINE GRINDER-C Status: REG CLI Study: Chest WITH Contrast Date of Exam: 09/02/20 Exam# [id number] Ordering Dr: Quincy Simpson MD STUDY: CT [...] in one year is advised. Electronically Signed: Tamarernie Gina, at 21:42 EST Tel , Service support , CC: YARI Gonzalez; Dr. Quincy Smipson MD Radio Communications Superintendent: Signed Kya Gonzalez Start: 08-25-2020 End: 08-25-2020 Oncology Visit Report Comments: See Note; NOTES: [facility] [address] [place] [address] OFFICE VISIT Date of Service: 08/25/20 1506 MR#: [id number] Acct: [id number] Name: MY JAMA Rep #: [id number] : 1960 From: Quincy Simpson MD Age/Sex: [...] FINDINGS: Supraclavicular: No acute process within the dobll-wi-ewge. Body wall soft tissues: No acute process. [...] AE1-3 (AE1/AE3/PCK26) positive CK7 (OV-TL12/30) negative CK8 (99ubjqS30) positive, weak CK20 (KS20.8) negative TTF-1 (8G7G3/1) [...] reviewed with patient . Quincy Simpson MD Talent Specialist, [facility] Divisions of Medical Oncology Hematology Department of Internal Medicine [facility] [address] [place] [address] This note was generated using a voice [...] Oncology Visit Report Comments: See Note; NOTES: [facility] [address] [place] [address] OFFICE VISIT Date of Service: 04/13/20 1512 MR#: [id number] Acct: [id number] Name: MY JAMA Rep #: [id number] : 1960 From: Quincy Simpson MD Age/Sex: [...] FINDINGS: Supraclavicular: No acute process within the obneb-cb-szvk. Body wall soft tissues: No acute process. [...] AE1-3 (AE1/AE3/PCK26) positive CK7 (OV-TL12/30) negative CK8 (40udwnC96) positive, weak CK20 (KS20.8) negative TTF-1 (8G7G3/1) [...] reviewed with patient . Quincy Simpson MD Talent Specialist, [facility] Divisions of Medical Oncology Hematology Department of Internal Medicine [address] [address] This note was generated using a voice [...] Oncology Follow-Up Visit Comments: See Note; NOTES: [facility] Medical Records Department [address] [place] [address] Oncology Follow-Up Visit 04/12/20 1543 MR#: [id number] Acct: [id number] Name: MY JAMA Rep #: [id number] : 1960 59 From: Santiago Sellers DO PCP: Kya Gonzalez, LOADER MAGAZINE GRINDER-C Status:REG RCR Y Location: [facility] Date of Service: 04/12/20 Last Clinic Visit: [...] Weight: 128.8 lbs (weight at end of BREAD STACKER 03/25/2019: 126.6 lbs) Vital Signs Temperature 97.3 [...] He will also continue to follow-up with BUSINESS OBJECTS DEVELOPER for continued improvement of his swallowing, he [...] in the interim. Santiago Sellers DO, MS Talent Specialist, Department of Radiation Oncology [facility] 04/12/20 5532 <Electronically signed by Santiago Sellers DO> Date Santiago Sellers DO CC: Dr. Renny Burgos MD; Dr. Quincy Simpson MD Signed Kya Gonzalez Start: 04-06-2020 End: 04-06-2020 Chest WITH Contrast Comments: See Note; NOTES: [facility] Imaging Services [address] [place] [address] Chest WITH Contrast MR#: [id number] Acct: [id number] Name: MY JAMA Rep #: [id number] : 1960 M 59 From: Jono Ackerman i, MD PCP: Kya Gonzalez LOADER MAGAZINE GRINDER-C Status: REG CLI Study: Chest WITH Contrast Date of Exam: 04/06/20 Exam# [id number] Ordering Dr: Quincy Simpson MD STUDY: CT [...] CC: YARI Gonzalez; Dr. Quincy Simpson MD Radio Communications Superintendent: Signed Kya Gonzalez Start: 03-30-2020 End: 03-30-2020 Modified Barium Swallow Study Comments: See Note; NOTE S: [facility] Speech Pathology [address] [place] [address] Modified Barium Swallow Study MR#: [id number] Acct: [id number] Name: MY JAMA Rep #: [id number] : 1960 59 From: Diomedes Bentley M.A., CCC-BUSINESS OBJECTS DEVELOPER PRIMARY / SECONDARY DIAGNOSIS: dysphagia (R13.12) CURRENT [...] with purees. IMAGE COUNT: Diomedes Bentley M.A., MARCIA-BUSINESS OBJECTS DEVELOPER, CBIS MBSImP Certified, LSVT Certified [facility] Speech-Language Pathology Department Email: [email or web address] 03/30/20 1801 <Electronically signed by Diomedes Bentley M.A., DANAES LP> Date Diomedes Bentley M.A., CCC-BUSINESS OBJECTS DEVELOPER Co-Signature Required for all Medicare patients Date/Time _ Co-Signature CC: Kya Gonzalez Start: 01-13-2020 End: 01-13-2020 Oncology Visit Report Comments: See Note; NOTES: [facility] [address] [place] [address] OFFICE VISIT Date of Service: 01/13/20 1307 MR#: [id number] Acct: [id number] Name: MY JAMA Rep #: [id number] : 1960 From: Quincy Simpson MD Age/Sex: [...] FINDINGS: Supraclavicular: No acute process within the apprg-pd-ghog. Body wall soft tissues: No acute process. [...] AE1-3 (AE1/AE3/PCK26) positive CK7 (OV-TL12/30) negative CK8 (21lcjgQ38) positive, weak CK20 (KS20.8) negative TTF-1 (8G7G3/1) [...] reviewed with patient . Quincy Simpson MD Talent Specialist, [facility] Divisions of Medical Oncology AND Hematology Department of Internal Medicine [facility] [place] [address] This note was generated using a voice [...] Oncology Visit Report Comments: See Note; NOTES: [facility] [address] [place] [address] OFFICE VISIT Date of Service: 10/14/19 1303 MR#: [id number] Acct: [id number] Name: MY JAMA Rep #: [id number] : 1960 From: Quincy Simpson MD Age/Sex: [...] FINDINGS: Supraclavicular: No acute process within the etkgh-ex-ggyo. Body wall soft tissues: No acute process. [...] AE1-3 (AE1/AE3/PCK26) positive CK7 (OV-TL12/30) negative CK8 (31tkoyU24) positive, weak CK20 (KS20.8) negative TTF-1 (8G7G3/1) [...] of the first interosseous space muscles predating port gamble therapy Skin:: Negative for: Lesions, Rash, Petechiae, [...] reviewed with patient . Quincy Simpson MD Talent Specialist, [facility] Divisions of Medical Oncology AND Hematology Department of Internal Medicine [place] [address] This note was generated using a voice [...] Quincy Simpson MD> Date Quincy Simpson MD [facility] Signature: Date (if applicable) CC: DO Kya Jorgensen Start: 10-07-2019 End: 10-07-2019 Chest WITH Contrast Comments: See Note; NOTES: [facility] Imaging Services [address] [place] [address] Chest WITH Contrast MR#: [id number] Acct: [id number] Name: MY JAMA Rep #: [id number] : 1960 M 59 From: Primo Medina DO PCP: ERWIN PardoC Status: REG CLI Study: Chest WITH Contrast Date of Exam: 10/07/19 Exam# [id number] Ordering Dr: Quincy Simpson MD STUDY: CT [...] enhanced CT Chest examination. Electronically Signed: Primo MedinaDO at 22:52 EST Tel [phone], Service support , CC: YARI Gonzalez; Quincy Simpson MD Radio Communications Superintendent: Signed Kya Gonzalez Start: 10-01-2019 End: 10-01-2019 Oncology Follow-Up Visit Comments: See Note; NOTES: [facility] Medical Records Department [address] [place] [address] Oncology Follow-Up Visit 10/01/19 1541 MR#: [id number] Acct: [id number] Name: MY JAMA Rep #: [id number] : 1960 59 From: Santiago Sellers DO PCP: YARI Pardo Status: REG RCR Y Location: [facility] Date of Service: 10/01/19 Last Clinic Visit: [...] Weight: 124 lbs (weight at end of BREAD STACKER 03/25/2019: 126.6 lbs) Vital Signs Temperature 99 [...] He will also continue to follow-up with BUSINESS OBJECTS DEVELOPER for continued improvement of his swallowing. He [...] in the interim. Santiago Sellers DO, MS Talent Specialist, Department of Radiation Oncology [facility] 10/01/19 2923 <Electronically signed by Santiago Sellers DO> Date Santiago Sellers DO CC: Rachel Brooks MD; Jim Burgos MD; Quincy Simpson MD Signed Kya Gonzalez Start: 07-16-2019 End: 07-16-2019 Oncology Visit Report Comments: See Note; NOTES: [facility] [address] [place] [address]. [place] [address] OFFICE VISIT Date of Service: 07/16/19 1356 MR#: [id number] Acct: [id number] Name: MY JAMA Rep #: [id number] : 1960 From: Quincy Simpson MD Age/Sex: [...] FINDINGS: Supraclavicular: No acute process within the sbtjl-dr-pxud. Body wall soft tissues: No acute process. [...] AE1-3 (AE1/AE3/PCK26) positive CK7 (OV-TL12/30) negative CK8 (31julyL77) positive, weak CK20 (KS20.8) negative TTF-1 (8G7G3/1) [...] reviewed with patient . Quincy Simpson MD Talent Specialist, [facility] Divisions of Medical Oncology AND Hematology Department of Internal Medicine [place] [address] This note was generated using a voice [...] Oncology Follow-Up Visit Comments: See Note; NOTES: [facility] Medical Records Department [address] [place] [address] Oncology Follow-Up Visit 07/02/19 1412 MR#: [id number] Acct: [id number] Name: MY JAMA Rep #: [id number] : 1960 59 From: Santiago Sellers DO PCP: Kya Gonzalez, LOADER MAGAZINE GRINDER-C Status: REG RCR Y Location: [facility] Date of Service: 07/02/19 Last Clinic Visit: [...] Weight: 121 lbs (weight at end of BREAD STACKER 03/25/2019: 126.6 lbs) Vital Signs Temperature 100.3 [...] the clinical situation. PROCEDURE PERFORMED: Right Flexible Ixsl-Uakdndag-Hfaonkdbdmdf. CONSENT: Verbal informed consent was obtained prior [...] He will also continue to follow-up with BUSINESS OBJECTS DEVELOPER for continued improvement of his swallowing. He [...] in the interim. Santiago Sellers DO, MS Talent Specialist, Department of Radiation Oncology [facility] 07/02/19 5076 <Electronically signed by Santiago Sellers DO> Date Santiago Sellers DO CC: Rachel Brooks MD; Jim Burgos MD; Quincy Simpson MD Signed Kya Gonzalez Start: 06-29-2019 PET/CT Tumor Base -Thigh Subs LOADER MAGAZINE GRINDER-C Kya Gonzalez LOADER MAGAZINE GRINDER Work Phone: Start: 06-26-2019 End: 06-26-2019 Modified Barium Swallow Study Comments: See Note; NOTE S: [facility] Speech Pathology [address] [place] [address] Modified Barium Swallow Study MR#: [id number] Acct: [id number] Name: MY JAMA Rep #: [id number] : 1960 59 From: Diomedes Bentley M.A. [facility]3]-BUSINESS OBJECTS DEVELOPER PRIMARY / SECONDARY DIAGNOSIS: dysphagia (R13.12) REFERRING [...] Thin liquids via straw (chin tuck): 1 [place] thickened liquids via straw (single sip): 1 [place] thickened liquids via straw (single sip): 1 [place] thickened liquids via straw (single sip): 1 [...] at a time with purees. IMAGE COUNT: [id number] Diomedes Bentley M.A., MARCIA-BUSINESS OBJECTS DEVELOPER, CBIS MBSImP Certified, LSVT Certified [facility] Speech-Language Pathology Department [email or web address] 06/26/191817 <Electronically signed by Diomedes Bentley M.A., CCC-BUSINESS OBJECTS DEVELOPER> Date Diomedes Bentley M.A. CCC-BUSINESS OBJECTS DEVELOPER Co-Signature Required for all Medicare patients Date/Time _ Co-Signature CC: Kya Gonzalez Start: 06-26-2019 End: 06-26-2019 Swallowing Function w/Video Comments: See Note; NOTES: [facility] Imaging Services [address] [place] [address] Swallowing Function w/Video MR#: [id number] Acct: [id number] Name: MY JAMA Rep #: [id number] : 1960 M 59 From: Bib Reeves MD PCP: Kya Gonzalez, LOADER MAGAZINE GRINDER-C Status: REG CLI Study: Swallowing Function w/Video Date of Exam: 06/26/19 Exam# [id number] Ordering Dr: Santiago Sellers DO STUDY: SWALLOWING [...] , CC: YARI Gonzalez; Santiago Sellers DO Radio Communications Superintendent: Signed Kya Gonzalez Start: 06-26-2019 End: 06-30-2019 PET/CT Tumor Base -Thigh Subs Comments: See Note; NOTE S: [facility] Imaging Services [address] [place] [address] PET/CT Tumor Base -Thigh Subs MR#: [id number] Acct: [id number] Name: MY JAMA Rep #: [id number] : 1960 M 59 From: Narendra Weathers DO PCP: Kya Ciesa, LOADER MAGAZINE GRINDER-C Status: REG RCR Study: PET/CT Tumor Base -Thigh Subs Date of Exam: 06/29/19 Exam# [id number] Ordering Dr: Quincy Simpson MD EXAMINATION: FDG [...] change attributed to apparent feeding tube placement. Niuu-K-Jtfb-MediPort placement is noted. The prior defined morphologic-anatomic [...] , CC: YARI Gonzalez; Quincy Simpson MD Radio Communications Superintendent: Signed Kya Gonzalez Start: 06-08-2019 End: 06-08-2019 Oncology Visit Report Comments: See Note; NOTES: [facility] [address] [place] [address] OFFICE VISIT Date of Service: 06/08/19 1312 MR#: [id number] Acct: [id number] Name: MY JAMA Rep #: [id number] : 1960 From: Marce BUNN Age/Sex: 58/M [...] FINDINGS: Supraclavicular: No acute process within the lqoww-dm-jnxf. Body wall soft tissues: No acute process. [...] AE1-3 (AE1/AE3/PCK26) positive CK7 (OV-TL12/30) negative CK8 (17ckmsQ80) positive, weak CK20 (KS20.8) negative TTF-1 (8G7G3/1) [...] team. Engaged in lengthy conversation regarding potential prison/late side effects associated with chemotherapy exposure, recommendations [...] end of his treatment. Accepts referral to [facility] Cessation [facility]. RTO on 07/16/19 to review results of PET/CT with Dr. 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 Marce Maxwell, JOB DEVELOPER FOR [employer]-PHYSICIST [employer], AOCNP Medications: Prescriptions This Visit Medication Instructions [...] Resolved 06/08/19 1416 <Electronically signed by Marce HOODC> Date Marce BUNN Cosigner Signature: Date (if applicable) CC: Kya Gonzalez Start: 06-08-2019 End: 06-08-2019 End of Treatment Summary Comments: See Note; NOTES: [facility] [address] [place] [address] End of Treatment Summary Date of Service: 05/27/19 1618 MR#: [id number] Acct: [id number] Name: MY JAMA Rep #: [id number] : 1960 From: Marce BUNN Age/Sex: 58/M [...] activity Other comments:: Prepared by VINCE Shirley, AOJONNP. Delivered on 06/08/19 06/08/19 1400 <Electronically signed by Marce BUNN> Date Marce BUNN Cosigner Signature: Date (if applicable) CC: YARI Boland Monica Gonzalez Start: 05-19-2019 End: 05-19-2019 Oncology Visit Report Comments: See Note; NOTES: [facility] [place] [address] OFFICE VISIT Date of Service: 05/19/19 1136 MR#: [id number] Acct: [id number] Name: MY JAMA Rep #: [id number] : 1960 From: Quincy Simpson MD Age/Sex: [...] FINDINGS: Supraclavicular: No acute process within the vpfww-ps-dqcb. Body wall soft tissues: No acute process. [...] AE1-3 (AE1/AE3/PCK26) positive CK7 (OV-TL12/30) negative CK8 (91lrmmD43) positive, weak CK20 (KS20.8) negative TTF-1 (8G7G3/1) [...] with patient and family. Quincy Simpson MD Talent Specialist, [facility] Divisions of Medical Oncology AND Hematology Department of Internal Medicine [place] [address] This note was generated using a voice [...] Chest WITH Contrast Comments: See Note; NOTES: [facility] Imaging Services [address] [place] [address] Chest WITH Contrast MR#: [id number] Acct: [id number] Name: MY JAMA Rep #: [id number] : 1960 58 From: Ric Pelaez MD PCP: Kya Gonzalez NP-C Status: REG CLI Study: Chest WITH Contrast Date of Exam: 05/13/19 Exam# [id number] Ordering Dr: Quincy Simpson MD STUDY: CT [...] , CC: YARI Gonzalez; Quincy Simpson MD Radio Communications Superintendent: Signed Kya Gonzalez Start: 04-28-2019 End: 04-28-2019 Oncology Visit Report Comments: See Note; NOTES: [facility] [address] [facility] [place] [address] OFFICE VISIT Date of Service: 04/28/19 1148 MR#: [id number] Acct: [id number] Name: MY JAMA Rep #: [id number] : 1960 From: Quincy Simpson MD Age/Sex: [...] FINDINGS: Supraclavicular: No acute process within the xeuzq-qe-vdve. Body wall soft tissues: No acute process. [...] AE1-3 (AE1/AE3/PCK26) positive CK7 (OV-TL12/30) negative CK8 (93ycmbO95) positive, weak CK20 (KS20.8) negative TTF-1 (8G7G3/1) [...] reviewed with patient . Quincy Simpson MD Talent Specialist, [facility] Divisions of Medical Oncology AND Hematology Department of Internal Medicine [place] [address] This note was generated using a voice [...] Oncology Visit Report Comments: See Note; NOTES: [facility] [address] [place] [address] OFFICE VISIT Date of Service: 04/21/19 1142 MR#: [id number] Acct: [id number] Name: MY JAMA Rep #: [id number] : 1960 From: Quincy Simpson MD Age/Sex: [...] FINDINGS: Supraclavicular: No acute process within the haadr-el-pueu. Body wall soft tissues: No acute process. [...] AE1-3 (AE1/AE3/PCK26) positive CK7 (OV-TL12/30) negative CK8 (93klzgK81) positive, weak CK20 (KS20.8) negative TTF-1 (8G7G3/1) [...] reviewed with patient . Quincy Simpson MD Talent Specialist, [facility] Divisions of Medical Oncology AND Hematology Department of Internal Medicine [address] [address] This note was generated using a voice [...] Oncology Visit Report Comments: See Note; NOTES: [address] [place] [address] OFFICE VISIT Date of Service: 04/13/1940 MR#: [id number] Acct: [id number] Name: MY JAMA Rep #: [id number] : 1960 From: Quincy Simpson MD Age/Sex: [...] FINDINGS: Supraclavicular: No acute process within the gylub-bl-epmh. Body wall soft tissues: No acute process. [...] AE1-3 (AE1/AE3/PCK26) positive CK7 (OV-TL12/30) negative CK8 (95fbccZ25) positive, weak CK20 (KS20.8) negative TTF-1 (8G7G3/1) [...] reviewed with patient . Quincy Simpson MD Talent Specialist, [facility] Divisions of Medical Oncology AND Hematology Department of Internal Medicine [place] [facility] [place] [phone] This note was generated using a voice [...] Oncology Follow-Up Visit Comments: See Note; NOTES: [facility] Medical Records Department [address] [place], [place] [id number] Oncology Follow-Up Visit 04/06/19 1053 MR#: [id number] Acct: [id number] Name: MY JAMA Rep #: [id number] : 1960 58 From: Santiago Sellers DO PCP: Kya Gonzalez NP Status: REG RCR Y Location: [facility] Date of Service: 04/06/19 Last Clinic Visit: [...] Weight: 121 lbs (weight at end of BREAD STACKER 03/25/2019: 126.6 lbs) Vital Signs Temperature 100.3 [...] in the interim. Santiago Sellers DO, MS Talent Specialist, Department of Radiation Oncology [facility] 04/06/19 1108 <Electronically signed by Santiago Sellers DO> Date Santiago Sellers DO CC: Rachel Brooks MD; Quincy Simpson MD Signed Kya Gonzalez Start: 04-06-2019 End: 04-06-2019 Oncology Visit Report Comments: See Note; NOTES: [facility] [address] [place] [address] OFFICE VISIT Date of Service: 04/06/19 1030 MR#: [id number] Acct: [id number] Name: MY JAMA Rep #: [id number] : 1960 From: Quincy Simpson MD Age/Sex: [...] FINDINGS: Supraclavicular: No acute process within the bhoze-rn-yxko. Body wall soft tissues: No acute process. [...] AE1-3 (AE1/AE3/PCK26) positive CK7 (OV-TL12/30) negative CK8 (34cshkL82) positive, weak CK20 (KS20.8) negative TTF-1 (8G7G3/1) [...] reviewed with patient . Quincy Simpson MD Talent Specialist, [facility] Divisions of Medical Oncology AND Hematology Department of Internal Medicine [place] [facility] [address] [address] This note was generated using a voice [...] 03-31-2019 Bacteria identified in Blood by Culture LOADER MAGAZINE GRINDER-C Kya Gonzalez LOADER MAGAZINE GRINDER Work Phone: Start: 03-30-2019 End: 03-30-2019 Oncology Visit Report Comments: See Note; NOTES: [facility] [address] [place], [place] [address] OFFICE VISIT Date of Service: 03/30/19 0941 MR#: [id number] Acct: [id number] Name: MY JAMA Rep #: [id number] : 1960 From: Quincy Simpson MD Age/Sex: [...] FINDINGS: Supraclavicular: No acute process within the dpheo-lv-wtih. Body wall soft tissues: No acute process. [...] AE1-3 (AE1/AE3/PCK26) positive CK7 (OV-TL12/30) negative CK8 (06pnjeW84) positive, weak CK20 (KS20.8) negative TTF-1 (8G7G3/1) [...] patient and his daughter. Quincy Simpson MD Talent Specialist, [facility] Divisions of Medical Oncology AND Hematology Department of Internal Medicine [place] [address] This note was generated using a voice [...] of Treatment Summary Comments: See Note; NOTES: [facility] [address] [address] End of Treatment Summary Date of Service: 03/25/19 1125 MR#: [id number] Acct: [id number] Name: MY JAMA Rep #: [id number] : 1960 From: Santiago Sellers DO Age/Sex: [...] this patient. Sincerely, Santiago Sellers DO, MS Talent Specialist, Department of Radiation Oncology [facility] 03/25/19 3566 <Electronically signed by Santiago Sellers DO> Date Santiago [facility]ellers DO [facility] Signature: Date (if applicable) CC: AJAY Gonzalez; Rachel Brooks MD; Jim Burgos MD; MD Kya Hall Start: 03-25-2019 End: 03-25-2019 Radiation Oncology Visit Comments: See Note; NOTES: [facility] [address] [place] [address]. [place] [address] OFFICE VISIT Date of Service: 03/25/19 1118 MR#: [id number] Acct: [id number] Name: MY JAMA Rep #: [id number] : 1960 From: Santiago Sellers DO Age/Sex: [...] moist desquamation. No rash Fatigue: mild Pain: 5-8/10, mostly with swallowing, using MMW/oxycodone Dysgeusia: 100% [...] evidence of withdrawl Continue follow up with BUSINESS OBJECTS DEVELOPER and Nutrition Services, will follow up in 2 weeks, continue fluids as planned by med onc Thank you for allowing me to participate in the management and care of your patient. If I may answer any questions in the interim, please do not hesitate to contact me at any time. Santiago Sellers DO Department of Radiation Oncology [facility] 03/25/19 6050 <Electronically signed by Santiago Sellers DO> Date Santiago Roynoe Signature: Date (if applicable) CC: Kya Gonzalez Start: 03-23-2019 End: 03-23-2019 Oncology Visit Report Comments: See Note; NOTES: [facility] [address] [place] [address] OFFICE VISIT Date of Service: 03/23/19 0933 MR#: [id number] Acct: [id number] Name: MY JAMA Rep #: [id number] : 1960 From: Quincy Simpson MD Age/Sex: [...] FINDINGS: Supraclavicular: No acute process within the djfkg-ua-vwtu. Body wall soft tissues: No acute process. [...] AE1-3 (AE1/AE3/PCK26) positive CK7 (OV-TL12/30) negative CK8 (09ggozO41) positive, weak CK20 (KS20.8) negative TTF-1 (8G7G3/1) [...] the combined modality phase Quincy Simpson MD Talent Specialist, [facility] Divisions of Medical Oncology AND Hematology Department of Internal Medicine [place] [facility] [place] [address] This note was generated using a voice [...] Quincy Simpson MD> Date Quincy Simpson MD [facility] Signature: Date (if applicable) CC: Kya Gonzalez Start: 03-18-2019 End: 03-18-2019 Radiation Oncology Visit Comments: See Note; NOTES: [facility] [place] [address] OFFICE VISIT Date of Service: 03/18/19 1353 MR#: [id number] Acct: [id number] Name: MY JAMA Rep #: [id number] : 1960 From: Santiago Sellers DO Age/Sex: [...] evidence of withdrawl Continue follow up with BUSINESS OBJECTS DEVELOPER and Nutrition Services Thank you for allowing me to participate in the management and care of your patient. If I may answer any questions in the interim, please do not hesitate to contact me at any time. Santiago Sellers DO Department of Radiation Oncology [facility] 03/18/19 6691 <Electronically signed by Santiago Sellers DO> Date Santiago Sellers DO Cosignallison Signature: Date (if applicable) CC: Kya Riveromeganchioma Start: 03-16-2019 End: 03-16-2019 Oncology Visit Report Comments: See Note; NOTES: [facility] [address] [place] [address]. [place] [address] OFFICE VISIT Date of Service: 03/16/19929 MR#: [id number] Acct: [id number] Name: MY JAMA Rep #: [id number] : 1960 From: Quincy Simpson MD Age/Sex: [...] FINDINGS: Supraclavicular: No acute process within the ujrga-ma-smct. Body wall soft tissues: No acute process. [...] AE1-3 (AE1/AE3/PCK26) positive CK7 (OV-TL12/30) negative CK8 (90budiM16) positive, weak CK20 (KS20.8) negative TTF-1 (8G7G3/1) [...] the combined modality phase Quincy Simpson MD Talent Specialist, [facility] Divisions of Medical Oncology AND Hematology Department of Internal Medicine [place] [address] This note was generated using a voice [...] Radiation Oncology Visit Comments: See Note; NOTES: [facility] [address] [place] [address] OFFICE VISIT Date of Service: 03/11/19 1020 MR#: [id number] Acct: [id number] Name: MY JAMA Rep #: [id number] : 1960 From: Donaldo Gibbs MD Age/Sex: 58/M Location: [facility] Status: Signed with Addenda ADDENDUM by Donaldo [...] evidence of withdrawl Continue follow up with BUSINESS OBJECTS DEVELOPER and Nutrition Services Thank you for allowing me to participate in the management and care of your patient. If I may answer any questions in the interim, please do not hesitate to contact me at any time. Donaldo Gibbs MD Department of Radiation Oncology [facility] 03/11/19 4108 <Electronically signed by Donaldo Gibbs MD> Date Donaldo Gibbs MD [facility] Signature: Date (if applicable) CC: Kya Gonzalez Start: 03-09-2019 End: 03-09-2019 Oncology Visit Report Comments: See Note; NOTES: [facility] [place] [address] OFFICE VISIT Date of Service: 03/09/19 1014 MR#: [id number] Acct: [id number] Name: MY JAMA Rep #: [id number] : 1960 From: Marce BUNN Age/Sex: 58/M [...] FINDINGS: Supraclavicular: No acute process within the vlrtu-ll-bjho. Body wall soft tissues: No acute process. [...] AE1-3 (AE1/AE3/PCK26) positive CK7 (OV-TL12/30) negative CK8 (07jtljP69) positive, weak CK20 (KS20.8) negative TTF-1 (8G7G3/1) [...] Cisplatin, sooner if issues arise. Marce Maxwell, JOB DEVELOPER FOR DEAF ADULTS-PHYSICIST SOLID EARTH, AOCNP Medications: Prescriptions This Visit Medication Instructions [...] Radiation Oncology Visit Comments: See Note; NOTES: [facility] [address] [place] [address] OFFICE VISIT Date of Service: 03/04/19 1453 MR#: [id number] Acct: [id number] Name: MY JAMA Rep #: [id number] : 1960 From: Santiago Sellers DO Age/Sex: 58/M Location: [facility] Status: Signed Date of Service: 03/04/19 Diagnosis: [...] Rate 74 03/04/19 11:41 Respiratory Rate 16 06/12/19 11:41 Objective: Gen: NAD ENT: moderate pharyngeal [...] evidence of withdrawl Continue follow up with BUSINESS OBJECTS DEVELOPER and Nutrition Services Thank you for allowing me to participate in the management and care of your patient. If I may answer any questions in the interim, please do not hesitate to contact me at any time. Santiago Sellers DO, MS Talent Specialist, Department of Radiation Oncology [facility] 03/04/19 2350 <Electronically signed by Santiago Sellers DO> Date Santiago Sellers DO Manley Signature: Date (if applicable) CC: Kya Gonzalez Start: 03-02-2019 End: 03-02-2019 Oncology Visit Report Comments: See Note; NOTES: [facility] [address] [place] [address] OFFICE VISIT Date of Service: 03/02/19919 MR#: [id number] Acct: [id number] Name: MY JAMA Rep #: [id number] : 1960 From: Quincy Simpson MD Age/Sex: 58/M Location: [facility] Status: Signed - Problem List (1) Head [...] FINDINGS: Supraclavicular: No acute process within the bsnhh-nu-ctxv. Body wall soft tissues: No acute process. [...] AE1-3 (AE1/AE3/PCK26) positive CK7 (OV-TL12/30) negative CK8 (69gnjaU29) positive, weak CK20 (KS20.8) negative TTF-1 (8G7G3/1) [...] the combined modality phase Quincy Simpson MD Talent Specialist, [facility] Divisions of Medical Oncology AND Hematology Department of Internal Medicine [place] [address] This note was generated using a voice [...] Radiation Oncology Visit Comments: See Note; NOTES: [facility] [address] [address] OFFICE VISIT Date of Service: 02/25/19 1033 MR#: [id number] Acct: [id number] Name: MY JAMA Rep #: [id number] : 1960 From: Santiago Sellers DO Age/Sex: 58/M Location: [facility] Status: Signed Date of Service: 02/25/19 Diagnosis: [...] evidence of withdrawl Continue follow up with BUSINESS OBJECTS DEVELOPER and Nutrition Services Thank you for allowing me to participate in the management and care of your patient. If I may answer any questions in the interim, please do not hesitate to contact me at any time. Santiago Sellers DO, MS Talent Specialist, Department of Radiation Oncology [facility] 02/25/19 1043 <Electronically signed by Santiago Sellers DO> Date Santiago Sellers DO Cosigner Signature: Date (if applicable) CC: Kya Gonzalez Start: 02-23-2019 End: 02-23-2019 Oncology Visit Report Comments: See Note; NOTES: [facility] [address] [place] [address] OFFICE VISIT Date of Service: 02/23/19 1008 MR#: [id number] Acct: [id number] Name: MY JAMA Yamilet Rep #: [id number] : 1960 From: Marce BUNN Age/Sex: 58/M [...] FINDINGS: Supraclavicular: No acute process within the nhfru-ff-yhcm. Body wall soft tissues: No acute process. [...] AE1-3 (AE1/AE3/PCK26) positive CK7 (OV-TL12/30) negative CK8 (10wpheN65) positive, weak CK20 (KS20.8) negative TTF-1 (8G7G3/1) [...] Cisplatin, sooner if issues arise. Marce Maxwell, JOB DEVELOPER FOR DEAF ADULTS-PHYSICIST SOLID EARTH, AOCNP Medications: Prescriptions This Visit Medication Instructions Recorded Primary Care Provider: Kya Gonzalez NP Referring Provider: - Problem List (1) Regional lymph node metastasis present Status: Acute (2) Head and neck cancer Status: Acute 02/23/19 1101 <Electronically signed by Marce HOODC> Date Marce BUNN Cosigner Signature: Date (if applicable) CC: Kya Gonzalez Start: 02-19-2019 End: 02-19-2019 SP Initial Evaluation Comments: See Note; NOTES: [facility] Speech Pathology [facility] [address] [place] [address] / REHABILITATION SERVICES INITIAL EVALUATION MR#: [id number] Acct: [id number] Name: MY JAMA Rep #: [id number] : 1960 58 From: Diomedes Bentley M.A., CFY-BUSINESS OBJECTS DEVELOPER Referring Dr.: Santiago Sellers, DO Status: REG RCR Insurance: [facility] [place] [id number] Eval Date: SELF PAY INSURANCE REASON FOR REFERRAL: The Patient is a 58 year old male referred for a clinical assessment of the swallow function at [facility] on 02/13/2019 secondary to recently diagnosed clinical [...] for Xerostomia: Acute Reactions: Grade 0 (no shredding machine knife 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) [facility] Xerostomia Questionnaire: Sialorrhea Scoring Scale (SSS): /9 (dry, never drools) MD Feng Dysphagia Inventory (MDADI): Global: 4/5 Physical: 34/40 Emotional: 30 Functional: Composite score: 82 Mean Point Score: [...] normal activity; minor impact) Ndiaye Index of [place] in Activities of Daily Livin/6 (independent) Bathin Dressin Toiletin Transferrin Continence: 1 Feedin [place] Rolando Instrumental Activities of Daily Living Scale [...] as needed post MBS Diomedes Bentley M.A., CCC-BUSINESS OBJECTS DEVELOPER MBSImP Certified, LSVT Certified [facility] Speech-Language Pathology Department [email or web address] <Electronically signed by Diomedes Bentley M.A., CFY-BUSINESS OBJECTS DEVELOPER> 02/19/19 1829 CC: [facility] Signed For Medicare only, by signing this I certify the plan of care. Physicians Signature Date Kya Gonzalez Start: 02-18-2019 End: 02-18-2019 Radiation Oncology Visit Comments: See Note; NOTES: [facility] [address] [place] [address] OFFICE VISIT Date of Service: 02/18/19 1104 MR#: [id number] Acct: [id number] Name: MY JAMA Rep #: [id number] : 1960 From: Santiago Sellers DO Age/Sex: 58/M Location: [facility] Status: Signed Date of Service: 02/18/19 Diagnosis: [...] evidence of withdrawl Continue follow up with BUSINESS OBJECTS DEVELOPER and Nutrition Services Thank you for allowing me to participate in the management and care of your patient. If I may answer any questions in the interim, please do not hesitate to contact me at any time. Santiago Sellers DO, MS Talent Specialist, Department of Radiation Oncology [facility] 02/18/19 1106 <Electronically signed by Santiago Sellers DO> Date Santiago Doe Signature: Date (if applicable) CC: Kya Gonzalez Start: 02-17-2019 End: 02-17-2019 Oncology Visit Report Comments: See Note; NOTES: [facility] [address] [place], [place] [address]. [place] [address] OFFICE VISIT Date of Service: 02/17/19 1212 MR#: [id number] Acct: [id number] Name: MY JAMA Rep #: [id number] : 1960 From: Quincy Simpson MD Age/Sex: [...] FINDINGS: Supraclavicular: No acute process within the wazge-wa-wgdp. Body wall soft tissues: No acute process. [...] AE1-3 (AE1/AE3/PCK26) positive CK7 (OV-TL12/30) negative CK8 (96kaccR29) positive, weak CK20 (KS20.8) negative TTF-1 (8G7G3/1) [...] the combined modality phase Quincy Simpson MD Talent Specialist, [facility] Divisions of Medical Oncology AND Hematology Department of Internal Medicine [place] [address] This note was generated using a voice [...] Radiation Oncology Visit Comments: See Note; NOTES: [facility] [address] [place] [address] OFFICE VISIT Date of Service: 02/11/19 0938 MR#: [id number] Acct: [id number] Name: MY JAMA Rep #: [id number] : 1960 From: Santiago Sellers DO Age/Sex: [...] evidence of withdrawl Continue follow up with BUSINESS OBJECTS DEVELOPER and Nutrition Services Thank you for allowing me to participate in the management and care of your patient. If I may answer any questions in the interim, please do not hesitate to contact me at any time. Santiago Sellers DO, MS Talent Specialist, Department of Radiation Oncology [facility] 02/11/19 1110 <Electronically signed by Santiago Sellers DO> Date Santiago Sellers DO [place] Signature: Date (if applicable) CC: Kya Gonzalez Start: 02-10-2019 End: 02-10-2019 Oncology Visit Report Comments: See Note; NOTES: [facility] [address] [place] [address] OFFICE VISIT Date of Service: 02/10/19 0957 MR#: [id number] Acct: [id number] Name: MY JAMA Rep #: [id number] : 1960 From: Quincy Simpson MD Age/Sex: [...] FINDINGS: Supraclavicular: No acute process within the twwcq-il-egtw. Body wall soft tissues: No acute process. [...] AE1-3 (AE1/AE3/PCK26) positive CK7 (OV-TL12/30) negative CK8 (38qyrzP09) positive, weak CK20 (KS20.8) negative TTF-1 (8G7G3/1) [...] the combined modality phase Quincy Simpson MD Talent Specialist, [facility] Divisions of Medical Oncology AND Hematology Department of Internal Medicine [place] [facility] [place] [address] This note was generated using a voice [...] Oncology Follow-Up Visit Comments: See Note; NOTES: [facility] Medical Records Department [address] [place] [address] Oncology Follow-Up Visit 02/05/19 1145 MR#: [id number] Acct: [id number] Name: MY JAMA Rep #: [id number] : 1960 58 From: Santiago Sellers DO PCP: Kya Gonzalez NP Status: REG RCR Y Location: [facility] Date of Service: 02/05/19 Last Clinic Visit: [...] in the interim. Santiago Sellers DO, MS Talent Specialist, Department of Radiation Oncology [facility] 02/05/19 0218 <Electronically signed by Santiago Sellers DO> Date Santiago Sellers DO CC: Rachel Brooks MD; Quincy Simpson MD Signed Kya Gonzalez Start: 02-04-2019 End: 02-04-2019 Surgery Visit Report Comments: See Note; NOTES: [facility] [address] [place] [address] OFFICE VISIT Date of Service: 02/03/19 MR#: [id number] Acct: [id number] Name: MY JAMA Rep #: [id number] : 1960 Provider: Nimo Ledesma PA-C Age/Sex: 58/M Location: [facility] Status: Signed Intake Intake Visit Reasons: Port Placement AND Feeding Tube 01/26 Chief Complaint: Neck mass Chronometer Assembler And Adjuster Required: No Is patient in pain?: No [...] PA-C Cosigner Signature: Date (if applicable) CC: LOADER MAGAZINE GRINDER Kya Gonzalez Start: 02-03-2019 End: 02-03-2019 Operative Report Comments: See Note; NOTES: [facility] Medical Records Department [address] [place] [address] Operative Report 01/26/19 1045 MR#: [id number] Acct: [id number] Name: MY JAMA Rep #: [id number] : 1960 58 From: Shane Gibson MD PCP: Kya Gonzalez NP Status: [facility] Y Location: [facility] Problem List (1) Encounter for adjustment or [...] - Endoscopy Comments: See Note; NOTES : [facility] Medical Records Department [address] [place] [address] Operative Report - Endoscopy MR#: [id number] Acct: [id number] Name: MY JAMA W Rep #: [id number] : 1960 58 From: Shane Gibson MD PCP: Kya Gonzalez NP Status: REG [facility] 01/26/2019 Kya Gonzalez NP [address] [place] [address] Re : Upper GI endoscopy procedure for [...] me at Doctor phone number(s): , Fax: [phone], Work: . Sincerely, MD Shane Kuhn MD 01/26/2019 12:55:22 PM This report has been signed electronically. 01/26/19 1255 Date Shane Gibson MD [facility] Signature: Date (if indicated) CC: LOADER MAGAZINE GRINDER Kya Gonzalez; Shane Gibson MD; OUT OF TOWN DOCTOR Date Dictated: 01/26/19 1200 Date Transcribed: Radio Communications Superintendent: MICHELLE Signed Kya Gonzalez Start: 01-26-2019 End: 01-26-2019 Discharge Instruction Comments: See Note; NOTES: [facility] Medical Records Department [address] [place] [address] Instructions for Home/Discharge Instructions 01/26/19 1158 MR#: [id number] Acct: [id number] Name: MY JAMA W Rep #: [id number] : 1960 58 From: Shane Gibson MD PCP: Kya Gonzalez NP Status: REG [facility] Discharge Diet: No Restrictions - Pain medication [...] Reason: Pain Primary Care Physician: Kya Gonzalez, AJAY-C [Primary Care Provider] - Test Results: Test results from this visit will be discussed in further detail at your follow-up appointment, if applicable. Please Follow Up With: Shane Gibson MD - [phone] When: Please plan to follow up in 7 days in the office. 01/26/19 8358 <Electronically signed by Shane Gibson MD> Date Shane Gibson MD CC: LOADER MAGAZINE GRINDER yKa Gonzalez Signed Kya Gonzalez Start: 01-26-2019 End: 01-26-2019 CXR for Line Placement Comments: See Note; NOTES: [facility] Imaging Services [address] [place] [address] CXR for Line Placement MR#: [id number] Acct: [id number] Name: MY JAMA Rep #: [id number] : 1960 M 58 From: Coy White DO PCP: Kya Gonzalez NP Status: [facility] Study: CXR for Line Placement Date of Exam: 01/26/19 Exam# [id number] Ordering Dr: Shane Gibson MD STUDY: X-RAY [...] , CC: AJAY Gonzalez; Shane Gibson MD Radio Communications Superintendent: Signed Kya Gonzalez Start: 01-26-2019 End: 01-26-2019 History and Physical Exam Comments: See Note; NOTES: [facility] Medical Records Department [address] [place] [address] History and Physical 01/26/19 1044 MR#: [id number] Acct: [id number] Name: MY JAMA Rep #: [id number] : 1960 58 From: Shane Gibson MD PCP: Kya Gonzalez LOADER MAGAZINE GRINDER Status: REG SDC Y Location: [place] [address] History and Physical Date of Admission: 01/26/19 [facility] [address] [place] [address] OFFICE VISIT Date of Service: 01/02/19 MR#: [id number] Acct: [id number] Name: MY JAMA Rep #: [id number] : 1960 Provider: Shane Gibson MD Age/Sex: 58/M Location: [facility] Status: Signed Intake Vital Signs 01/02/19 Body Mass Index (BMI) 22.1 01/02/19 Height 5 ft 6.5 in 01/02/19 Weight: 140 lb 01/02/19 Body Mass Index (BMI) 22.2 Intake Visit Reasons: PORT PLACEMENT AND PEG TUBE Chief Complaint: Neck mass Chronometer Assembler And Adjuster Required: No Is patient in pain?: No Allergies No Known Allergies Allergy (Verified 01/02/19 10:15) Medications NK 12/19/18 [History Confirmed 01/02/19] [facility] Medical History Acid reflux (Acute) [...] person, oriented to place, oriented to time [facility] Head: normocephalic, atraumatic Ears: external ears [...] Vascular catheter fitting or adjustment Z45.2 01/04/19 6824 <Electronically signed by Shane Gibson MD> Date Shane Gibson MD Cosigner Signature: Date (if applicable) CC: I have re-examined the patient. There are no clinical changes since date of exam. 01/26/19 1045 <Electronically signed by Shane Gibson MD> Date Shane Gibson MD Cosigner Signature: Date (if applicable) CC: LOADER MAGAZINE GRINDER Kya Gonzalez; Shane Gibson MD Signed Kya Gonzalez Start: 01-21-2019 Basic metabolic 1998 panel - Serum or Plasma Rachel Brooks Start: 01-21-2019 CBC W Auto Differential panel - Blood Rachel Brooks Start: 01-21-2019 Coagulation Screen Racehl Brooks Start: 01-08-2019 End: 01-08-2019 Consultation Comments: See Note; NOTES: [facility] Medical Records Department [address] [place] [address] Consultation 01/08/19 1328 MR#: [id number] Acct: [id number] Name: MY JAMA Rep #: [id number] : 1960 58 From: Santiago Sellers DO PCP: Kya Gonzalez NP Status: REG RCR Y Location: [facility] Date of Service: 01/08/19 Referring Provider: Quincy [facility] vacation is [facility] and so like is staring screens so he is trying brain to check 4months vacation a week at [facility] on spring so expensive man is disease [...] at any time. Santiago Sellers DO, MS Talent Specialist, Department of Radiation Oncology [facility] Code Visit Office Visits / Consults: [id number] OV L4 New 01/08/19 1456 <Electronically signed by Santiago Sellers DO> Date Santiago Sellers DO Cosigner Signature (if applicable): Date CC: LOADER MAGAZINE GRINDER Kya Gonzalez; Jim Burgos MD; Shane Gibson MD; Quincy Simpson MD Signed Kya Gonzalez Start: 01-08-2019 End: 01-08-2019 Oncology Visit Report Comments: See Note; NOTES: [facility] [address] [facility] [place] [address] OFFICE VISIT Date of Service: 01/08/19 1132 MR#: [id number] Acct: [id number] Name: MY JAMA Rep #: [id number] : 1960 From: Quincy Simpson MD Age/Sex: [...] FINDINGS: Supraclavicular: No acute process within the vplul-ng-fnlp. Body wall soft tissues: No acute process. [...] AE1-3 (AE1/AE3/PCK26) positive CK7 (OV-TL12/30) negative CK8 (29vfvgD47) positive, weak CK20 (KS20.8) negative TTF-1 (8G7G3/1) [...] Oncology Visit Report Comments: See Note; NOTES: [facility] [address] [place] [address] OFFICE VISIT Date of Service: 01/05/19 1126 MR#: [id number] Acct: [id number] Name: MY JAMA Yamilet Rep #: [id number] : 1960 From: Marce BUNN Age/Sex: 58/M [...] FINDINGS: Supraclavicular: No acute process within the pqmea-tp-lnvw. Body wall soft tissues: No acute process. [...] AE1-3 (AE1/AE3/PCK26) positive CK7 (OV-TL12/30) negative CK8 (50oqyeU36) positive, weak CK20 (KS20.8) negative TTF-1 (8G7G3/1) [...] will commence with cycle 1: TBD by kathy. 1. ENT evaluation with henry endoscopy- On [...] Dr. Simpson as previously planned. Marce Maxwell, JOB DEVELOPER FOR DEAF ADULTS-PHYSICIST [employer], AOCNP Primary Care Provider: Kya Gonzalez NP Referring Provider: - Problem List (1) Carcinoma of unknown primary Status: Acute (2) Regional lymph node metastasis present Status: Acute (3) Encounter for education Status: Acute 01/05/19 1315 <Electronically signed by Marce BUNN> Date Marce BUNN Cosigner Signature: Date (if applicable) CC: Kya Gonzalez Start: 01-05-2019 PET/CT Tumor Base -Thigh Init LOADER MAGAZINE GRINDER-C Kya Gonzalez LOADER MAGAZINE GRINDER Work Phone: Start: 01-04-2019 End: 01-04-2019 Surgery Visit Report Comments: See Note; NOTES: [facility] [address] [facility] [place] [address] OFFICE VISIT Date of Service: 01/02/19 MR#: [id number] Acct: [id number] Name: MY JAMA Rep #: [id number] : 1960 Provider: Shane Gibson MD Age/Sex: 58/M Location: [facility] Status: Signed Intake Vital Signs01/02/19 Body Mass Index (BMI) 22.1 01/02/19 Height 5 ft 6.5 in 01/02/19 Weight: 140 lb 01/02/19 Body Mass Index (BMI) 22.2 Intake Visit Reasons: PORT PLACEMENT AND PEG TUBE Chief Complaint: Neck mass Chronometer Assembler And Adjuster Required: No Is patient in pain?: No Allergies No Known Allergies Allergy (Verified 01/02/19 10:15) Medications NK 12/19/18 [History Confirmed 01/02/19] [facility] Medical History Acid reflux (Acute) [...] person, oriented to place, oriented to time [facility] Head: normocephalic, atraumatic Ears: external ears [...] Vascular catheter fitting or adjustment Z45.2 01/04/19 3034 <Electronically signed by Shane Gibson MD> Date Shane Gibson MD Cosigner Signature: Date (if applicable) CC: Kya Gonzalez Start: 01-02-2019 End: 01-07-2019 PET/CT Tumor Base -Thigh Init Comments: See Note; NOTE S: [facility] Imaging Services [address] [place] [address] PET/CT Tumor Base -Thigh Init MR#: [id number] Acct: [id number] Name: MY JAMA Rep #: [id number] : 1960 M 58 From: Narendra Weathers DO PCP: Kya Gonzalez NP Status: REG RCR Study: PET/CT Tumor Base -Thigh Init Date of Exam: 01/05/19 Exam# [id number] Ordering Dr: Quincy Simpson MD EXAMINATION: FDG [...] , CC: AJAY Gonzalez; Quincy Simpson MD Radio Communications Superintendent: Signed Kya Monica Start: 12-31-2018 End: 12-31-2018 Oncology History and Physical Comments: See Note; NOTE S: [facility] Medical Records Department [address] [place] [address] History and Physical 12/31/18913 MR#: [id number] Acct: [id number] Name: MY JAMA Rep #: [id number] : 1960 58 From: Quincy Simpson MD [...] FINDINGS: Supraclavicular: No acute process within the tuewi-ub-ypbk. Body wall soft tissues: No acute process. [...] AE1-3 (AE1/AE3/PCK26) positive CK7 (OV-TL12/30) negative CK8 (39payhG03) positive, weak CK20 (KS20.8) negative TTF-1 (8G7G3/1) negative Napsin A (Rabbit Polyclonal) negative HepPar (OCh1E5) negative RCC (PN-15) negative PSAP (PASE/4LJ) negative CK5-6 (D5 AND 1684) positive P16 (E6H4) negative P40 (BC28) positive, focal Power of Wafer Abrading Machine Tender: No Living Will: Yes Health History: Past [...] drinking: Has the patient needed an eye oracle fusion middleware architect in the mornings: Comments: Review of Systems [...] placement. 5. Formal chemo teaching appointment with LOADER MAGAZINE GRINDER to schedule. 6. Appointment with PCP to [...] MD Cosign Signature: Date (if applicable) CC: Kya Gonzalez NP; Kya gonzalez; Jim Burgos MD; Shane Gibson MD; Quincy Simpson MD; Santiago Sellers DO Signed Kya Gonzalez Start: 12-25-2018 End: 12-25-2018 Surgery Visit Report Comments: See Note; NOTES: [facility] [address] [place], [place] 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 Adjuster Required: No Is patient in pain?: No Allergies No Known Allergies Allergy (Verified 12/22/18 09:19) Medications NK 12/19/18 [History Confirmed 12/19/18] [facility] Medical History Acid reflux (Acute) [...] person, oriented to place, oriented to time [facility] Head: normocephalic, atraumatic Ears: external ears [...] Shane Manley Signature: Date (if applicable) CC: Kya Gonzalez Start: 12-17-2018 End: 12-18-2018 Chest WITH Contrast Comments: See Note; NOTES: [facility] Imaging Services [address] [address] Chest WITH Contrast MR#: [id number] Acct: [id number] Name: MY JAMA Rep #: [id number] : 1960 58 From: Narendra Romero MD PCP: Kya Gonzalez NP Status: REG CLI Study: Chest WITH Contrast Date of Exam: 12/17/18 Exam# [id number] Ordering Dr: Kya Gonzalez LOADER MAGAZINE GRINDER-C STUDY: CT CHEST WITH CONTRAST REASON FOR [...] FINDINGS: Supraclavicular: No acute process within the gcgob-kg-wqpy. Body wall soft tissues: No acute process. [...] Service support , CC: Kya Gonzalez NP Radio Communications Superintendent: Signed Kya Gonzalez Work Phone: Start: 12-17-2018 End: 12-18-2018 Soft Tissue Neck WITH Contrast Comments: See Note; NOTES: [facility] Imaging Services [address] [place] [address] Soft Tissue Neck WITH Contrast MR#: [id number] Acct: [id number] Name: MY JAMA Rep #: [id number] : 1960 M 58 From: Narendra Romero MD PCP: Kya Gonzalez NP Status: REG CLI Study: Soft Tissue Neck WITH Contrast Date of Exam: 12/17/18 Exam# [id number] Ordering Dr: Kya Gonzalez LOADER MAGAZINE GRINDER-C STUDY: CT SOFT TISSUE NECK WITH CONTRAST [...] Tel , Service support , CC: Kya Riveromeganchioma MOSS Radio Communications Superintendent: Signed Kya Gonzalez Work Phone: Start: 12-15-2018 End: 12-15-2018 No Known Past Surgical History Xavier Myers Anaerobic microbial culture LOADER MAGAZINE GRINDER-C Kya Gonzalez LOADER MAGAZINE GRINDER Work Phone: [phone] Anaerobic microbial culture LOADER MAGAZINE GRINDER-C Kya Gonzalez LOADER MAGAZINE GRINDER Work Phone: [phone] Anaerobic microbial culture LOADER MAGAZINE GRINDER-C Kya Gonzalez LOADER MAGAZINE GRINDER Work Phone: [phone] Anaerobic microbial culture LOADER MAGAZINE GRINDER-C Kya Gonzalez LOADER MAGAZINE GRINDER Work Phone: [phone] Anaerobic microbial culture LOADER MAGAZINE GRINDER-C Kya Gonzalez LOADER MAGAZINE GRINDER Work Phone: [phone] Anaerobic microbial culture LOADER MAGAZINE GRINDER-C Kya Gonzalez LOADER MAGAZINE GRINDER Work Phone: [phone] Bacteria identified in Blood by Culture LOADER MAGAZINE GRINDER-C Kay Gonzalez LOADER MAGAZINE GRINDER Work Phone: [phone] Bacteria identified in Blood by Culture LOADER MAGAZINE GRINDER-C Kya Gonzalez LOADER MAGAZINE GRINDER Work Phone: [phone] H/O: tracheostomy Status post tracheostom y Kya Gonzalez Work Phone: [phone] Investigation of tra nsfusion reaction LOADER MAGAZINE GRINDER-C Kya Ciesa LOADER MAGAZINE GRINDER Work Phone: [phone] Investigation of tra nsfusion reaction LOADER MAGAZINE GRINDER-C Kya Ciesa LOADER MAGAZINE GRINDER Work Phone: [phone] Investigation of tra nsfusion reaction LOADER MAGAZINE GRINDER-C Kya Ciesa LOADER MAGAZINE GRINDER Work Phone: [phone] Investigation of tra nsfusion reaction LOADER MAGAZINE GRINDER-C Kya Ciesa LOADER MAGAZINE GRINDER Work Phone: [phone] Investigation of tra nsfusion reaction LOADER MAGAZINE GRINDER-C Kya Ciesa LOADER MAGAZINE GRINDER Work Phone: [phone] Investigation of tra nsfusion reaction LOADER MAGAZINE GRINDER-C Kya Ciesa LOADER MAGAZINE GRINDER Work Phone: [phone] Microbial culture, routine N P-C Kya Ciesa LOADER MAGAZINE GRINDER Work Phone: [phone] Microbial culture, routine N P-C Kya Ciesa LOADER MAGAZINE GRINDER Work Phone: [phone] Microbial culture, routine N P-C Kya Ciesa LOADER MAGAZINE GRINDER Work Phone: [phone] Microbial culture, routine N P-C Kya Ciesa LOADER MAGAZINE GRINDER Work Phone: [phone] Microbial culture, routine N P-C Kya Ciesa LOADER MAGAZINE GRINDER Work Phone: [phone] Microbial culture, routine N P-C Kya Ciesa LOADER MAGAZINE GRINDER Work Phone: [phone] NEGATED: Highlighted row has not occurred! 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 Expected: 06/10/2025 (Approximate), Expires: 06/10/2026 [facility] Work Phone: Comment on above: Expected: 06/10/2025 (Approximate), Expires: 06/10/2026 Start: 06-10-2025 End: 06-10-2026 CT Chest W contrast IV CT chest w IV contrast Imaging Routine 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 Expected: 06/10/2025, Expires: 06/10/2026 [facility] Work Phone: Comment on above: Expected: 06/10/2025 , Expires: 06/10/2026 Start: 06-10-2025 End: 06-10-2026 CT Neck W contrast IV CT soft tissue neck w IV contrast Imaging Routine 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 Expected: 06/10/2025, Expires: 06/10/2026 [facility] Work Phone: Comment on above: Expected: 06/10/2025 , Expires: 06/10/2026 Start: 06-10-2025 End: 06-10-2026 TSH with reflex to Free T4 if abnormal TSH with reflex to Free T4 if abnormal Lab Routine Acquired hypothyroidism Expected: 06/10/2025 (Approximate), Expires: 06/10/2026 [facility] Work Phone: Comment on above: Expected: 06/10/2025 (Approximate), Expires: 06/10/2026 Start: 06-10-2025 End: 06-10-2027 US.doppler Carotid arteries - bilateral Vascular US Carotid Artery Duplex Bilateral Vascular Ultrasound Routine Adverse effect of radiation, sequela Other disorders of arteries, arterioles and capillaries in diseases classified elsewhere Expected: 06/10/2025 (Approximate), Expires: 06/10/2027 [facility] Service Area Work Phone: Comment on above: Expected: 06/10/2025 (Approximate), Expires: 06/10/2027 Start: 05-24-2025 COVID-19 Vaccine () COVID-19 Vaccine () [facility] Start: 05-24-2025 Influenza vaccination [facility] Start: 04-15-2025 Patient discharge [facility] Start: 03-01-2025 End: 03-01-2025 Patient encounter procedure 03/01/2025 8:30 AM EDT Office Visit [address] [phone] [place] [address] Department of Otolaryngology [place] [id number] [facility] Start: 10-21-2024 Egd insert guide wir e dilator passage esophagus EGD GUIDE WIRE INSERTION [facility] Start: 10-21-2024 Patient discharge [facility] Start: 09-15-2024 CORE NDL BX LNG/MED PERQ CORE NDL BX LNG/MED PERQ [facility] Start: 09-15-2024 Following clinical pathway protocol [facility] Start: 09-15-2024 Catheterization of vein [facility] Start: 09-15-2024 Oxygen therapy [facility] Start: 09-15-2024 Patient discharge [facility] Start: 09-15-2024 Vital signs measurements [facility] Start: 05-24-2024 COVID-19 Vaccine ( season) COVID-19 Vaccine ( season) [facility] Start: 05-24-2024 Influenza vaccination [facility] Start: 02-03-2024 End: 02-03-2024 Clinical Support 02/03/2024 11:30 AM EDT Clinical Support [address] [phone] Jaelyn Patrick, Aleks [address] [place] [address] Sensorineural hearing loss (SNHL) of both ears (Primary Dx) [facility] Comment on above: Sensorineural hearin g loss (SNHL) of both ears (Primary Dx) Start: 02-03-2024 End: 02-03-2024 Patient encounter procedure 02/03/2024 8:45 AM EDT Office Visit [address] [phone] [place] [address] [address] [place] [address] [facility] Start: 11-07-2023 DECLAN, Provider: Segundo Chamorro, Status: Pen, Time: 9:30 AM DECLAN, Provider: Segundo Chamorro, Status: Pen, Time: 9:30 AM LH-Phxzdvjdlxyvpy-Oyq on Work Phone: Start: 11-07-2023 End: 11-07-2023 Clinical Support 11/07/2023 9:30 AM EST Clinical Support [place] [address] [place] [phone] [address] [facility] Start: 09-03-2023 Egd insert guide wir e dilator passage esophagus EGD GUIDE WIRE INSERTION [facility] Start: 09-03-2023 Egd transoral biopsy single/multiple EGD BIOPSY SINGLE/MULTIPLE [facility] Start: 09-03-2023 Patient discharge [facility] Start: 09-02-2023 End: 09-02-2024 Thyrotropin [Units/volume] in Serum or Plasma Thyroid Stimulating Hormone Lab Routine Acquired hypothyroidism Expected: 09/02/2023 (Approximate), Expires: 09/02/2024 [facility] Service Area Work Phone: Comment on above: Expected: 09/02/2023 (Approximate), Expires: 09/02/2024 Start: 09-02-2023 End: 09-02-2024 XR Chest 2 Views XR chest 2 views Imaging Routine 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) Expected: 09/02/2023 (Approximate), Expires: 09/02/2024 [facility] Work Phone: Comment on above: Expected: 09/02/2023 (Approximate), Expires: 09/02/2024 Start: 08-06-2023 Thyroid stimulating hormone measurement TSH Level [facility] Start: 08-05-2023 Patient referral [facility] Work Phone: Start: 07-22-2023 Procedure Education Com prehens[facility] Internal [facility]; [facility] Work Phone: Start: 07-22-2023 Assay of free thyroxine [facility] Work Phone: Start: 07-22-2023 Assay of thyroid stimulating hormone tsh [facility] Work Phone: Start: 05-24-2023 COVID-19 Vaccine () COVID-19 Vaccine () [facility] Start: 05-24-2023 Influenza vaccination Influenza Vacc ine (#1) [facility] Start: 04-18-2023 DECLAN, Provider: Segundo Chamorro, Status: Pen, Time: 3:45 PM DECLAN, Provider: Segundo Chamorro, Status: Pen, Time: 3:45 PM PR-Pduojxpdztivpg-Vwt on Work Phone: Start: 04-04-2023 BASILIO, Provider: Segundo Chamorro, Status: Pen, Time: 11:00 AM HAFRANCI, Provider: Segundo Chamorro, Status: Pen, Time: 11:00 AM CY-Ayujvaqqoriigl-Pxq on Work Phone: Start: 03-14-2023 TOVA, Provider: Segundo Chamorro, Status: Pen, Time: 1:00 PM TOVA, Provider: Segundo Chamorro, Status: Pen, Time: 1:00 PM GY-Ayasqcflklomdr-Bgn on Work Phone: Start: 03-06-2023 SUSHILA, Provider: Gertrude Howard, Status: Pen, Time: 9:00 AM DUALMASOOD, Provider: Gertrude Howard, Status: Pen, Time: 9:00 AM GE-Thllohlxdbbnqd-Zqv [place] Work Phone: Start: 03-06-2023 EPV, Provider: True Kumar, Status: Pen, Time: 9:00 AM EPV, Provider: True Kumar, Status: Pen, Time: 9:00 AM SU-Fvmakgndyvepgv-Uvb on [address] Work Phone: Start: 03-06-2023 DUALMASOOD, Provider: Segundo Chamorro, Status: Pen, Time: 8:30 AM DUALAUDIO, Provider: Segundo Chamorro, Status: Pen, Time: 8:30 AM BO-Jgcesfepujefty-Own on [address] Work Phone: Start: 01-21-2023 Assay [...] (1 - Risk 60-74 years 1-dose series) [facility] Start: 2022 RSV patient s and/or patients aged 60+ years (1 - 1-dose 60+ series) RSV patients and/or patients aged 60+ years (1 - 1-dose 60+ series) [facility] Start: 06-18-2022 FUV, Provider: Rachel Brooks, Status: Pen, Time: 8:45 AM FUV, Provider: Rachel Brooks, Status: Pen, Time: 8:45 AM ND-Tcflzapgqtzvjy-Aet on Work Phone: Start: 05-14-2022 FUV, Provider: Rachel Brooks, Status: Pen, Time: 8:30 AM FUV, Provider: Rachel Brooks, Status: Pen, Time: 8:30 AM TM-Wllddqqfyxmrlq-Iaw on Work Phone: Start: 04-16-2022 FUV, Provider: Rachel Brooks, Status: Pen, Time: 9:45 AM FUV, Provider: Rachel Brooks, Status: Pen, Time: 9:45 AM MY-Cfsvrugdgeexsp-Snn dman Work Phone: Start: 04-02-2022 FUV, Provider: Rachel Brooks, Status: Pen, Time: 8:45 AM FUV, Provider: Rachel Brooks, Status: Pen, Time: 8:45 AM JE-Uordomehmeidvm-Wov on Work Phone: Start: 02-22-2022 Basic metabolic pane l calcium total Metabolic Panel, Basic (41188) [facility] Work Phone: Start: 02-16-2022 Basic metabolic pane l calcium total [facility]; [facility] Work Phone: Start: 02-15-2022 Basic metabolic pane l calcium total Metabolic Panel, Basic (19215) [facility]; [facility] Work Phone: Start: 02-15-2022 Procedure Education Com prehensive Internal Medicine; [facility] Work Phone: Start: 02-12-2022 FUV, Provider: Rachel Brooks, Status: Pen, Time: 11:15 AM FUV, Provider: Rachel Brooks, Status: Pen, Time: 11:15 AM SL-Bzmpetwrdwsaau-Vzq on Work Phone: Start: 01-31-2022 Patient referral [facility] Work Phone: Start: 01-25-2022 Patient discharge [facility] Work Phone: Start: 01-25-2022 Chemotherapy care management [facility] Work Phone: Start: 01-24-2022 [facility] Work Phone: Start: 01-24-2022 Care planning and problem solving actions [facility] Work Phone: Start: 01-24-2022 Speech therapy assessment [facility] Work Phone: Start: 01-24-2022 [facility] Work Phone: Start: 01-23-2022 Referral to systems analysis manager [facility] Work Phone: Start: 01-22-2022 End: 01-23-2022 [facility] Work Phone: Start: 01-22-2022 Following clinical pathway protocol [facility] Work Phone: Start: 01-22-2022 Ambulation without limitation [facility] Work Phone: Start: 01-22-2022 Application of intermittent pneumatic compression device [facility] Work Phone: Start: 01-22-2022 Assessment of risk o f venous thromboembolism [facility] Work Phone: Start: 01-22-2022 Consultation for treatment [facility] Work Phone: Start: 01-22-2022 Fluid restriction [facility] Work Phone: Start: 01-22-2022 Inhalation therapy procedure [facility] Work Phone: Start: 01-22-2022 Insertion of cathete r into peripheral vein [facility] Work Phone: Start: 01-22-2022 Measuring intake and output [facility] Work Phone: Start: 01-22-2022 Providing care according to standard [facility] Work Phone: Start: 01-22-2022 Wound care [facility] Work Phone: Start: 01-22-2022 Admission procedure [facility] Work Phone: Start: 01-22-2022 Patient referral to dietitian [facility] Work Phone: Start: 01-15-2022 FUV, Provider: Rachel Brooks, Status: Pen, Time: 9:45 AM FUV, Provider: Rachel Brooks, Status: Pen, Time: 9:45 AM MV-Tjghagnfscjrct-Mcr on Work Phone: Start: 01-15-2022 Patient encounter procedure [facility] [place] Start: 12-18-2021 FUV, Provider: Rachel Brooks, Status: Pen, Time: 3:45 PM FUV, Provider: Rachel Brooks, Status: Pen, Time: 3:45 PM PX-Uwqhqkfpjrkbsl-Tqx dman Work Phone: Start: 12-15-2021 Procedure Education Com prehensive [facility]; [facility] Work Phone: Start: 12-15-2021 FUV, Provider: Willie Smith, Status: Pen, Time: 10:30 AM FUV, Provider: Willie Smith, Status: Pen, Time: 10:30 AM FY-Kmeoxcdstnjhde-Fqx in [place] [address] Work Phone: Start: 12-10-2021 Airway suction technique [facility] Work Phone: Start: 12-08-2021 Patient referral [facility] Work Phone: Start: 12-05-2021 End: 12-06-2022 Lidocaine 1% - EPINEPHrine 1:100,000 Injectable SubCutaneous Once ; DOSE = 2 mL SubCutaneous Once Start: 05-Dec-2021 End: 05-Dec-2022 Ordered: 05-Dec-2021 Branden Avinash Intent [facility] Start: 12-04-2021 FUV, Provider: Rachel Brooks, Status: Pen, Time: 3:45 PM FUV, Provider: Rachel Brooks, Status: Pen, Time: 3:45 PM PG-Qzkojnbkxucccf-Nsz dman Work Phone: Start: 11-29-2021 Patient encounter procedure [facility] Start: 11-29-2021 POV, Provider: Rachel Brooks, Status: Deon, Time: 1:15 PM POV, Provider: Rachel Brooks, Status: Pen, Time: 1:15 PM AC-Qidnquznoiadlj-Qoz tlake Work Phone: Start: 11-13-2021 End: 11-14-2022 Magnesium Hydroxide Oral Liquid CONCENTRATE 10 mL Oral Every 24 Hours PRN ; (MILK OF MAGNESIA)DOSE = 10 mL PEG Tube Every 24 Hours Start: 13-Nov-2021 End: 13-Nov-2022 Ordered: 13-Nov-2021 La Baez Intent [facility] Start: 11-11-2021 End: 11-12-2022 Albuterol 2.5 mg - Ipratropium 0.5 mg/ 3 mL Neb Soln 3 mL Inhalation Every 4 Hours ; (DUONEB)DOSE = 3 mL Inhalation Every 4 Hours via Nebulizer, PRN Shortness of Breath Start: 11-Nov-2021 End: 11-Nov-2022 Ordered: 11-Nov-2021 Chevy Corrales Intent [facility] Start: 11-07-2021 [facility] Provider: Rachel Brooks, Status: Deon, Time: 8:00 AM [facility] Provider: Rachel Brooks, Status: Deon, Time: 8:00 AM RI-Oupyafrotdmtqt-Hkk dman Work Phone: Start: 11-07-2021 [facility] Provider: Willie Smith, Status: Pen, Time: 8:00 AM [facility], Provider: Willie Smith, Status: Pen, Time: 8:00 AM SC-Bjfdwasdnoxihy-Kfj dman Work Phone: Start: 11-01-2021 FUV, Provider: Willie Smith, Status: Pen, Time: 8:00 AM FUV, Provider: Willie Smith, Status: Pen, Time: 8:00 AM NG-Ugswkjmmphbgiv-Gju in [place] [address] Work Phone: Start: 10-27-2021 FUV, Provider: Willie Smith, Status: Pen, Time: 9:15 AM FUV, Provider: Willie Smith, Status: Pen, Time: 9:15 AM UC-Nsryyggdfkvhsk-Kol dman Work Phone: Start: 09-13-2021 Assay of [...] B 12) [Mass/Vol] VITAMIN B12 AND FOLATES (79761) [facility] Work Phone: Start: 01-17-2021 Cyanocobalamin vitam in b-12 [facility] Work Phone: Start: 01-17-2021 Assay of thyroid stimulating hormone tsh [facility] Work Phone: Start: 01-17-2021 TSH Qn TSH (THYROID STIMULATING HORMONE) ([id number]) [facility] Work Phone: Start: 12-02-2020 Procedure Education [facility] Work Phone: Start: 12-02-2020 Provider Instruction s for Treatment [facility] Work Phone: Start: 08-29-2020 TSH Qn TSH (THYROID STIMULATING HORMONE) ([id number]) [facility]; [facility] Work Phone: Comment on above: Oct 06 2020 Start: 08-29-2020 Procedure Education [facility] Work Phone: Start: 08-29-2020 Provider Instruction s for Treatment [facility]; [facility] Work Phone: Start: 06-29-2020 TSH Qn TSH (THYROID STIMULATING HORMONE) ([id number]) [facility] Work Phone: Comment on above: Aug 10 Start: 06-29-2020 Procedure [facility] Work Phone: Start: 06-29-2020 Provider Instruction s for Treatment [facility] Work Phone: Start: 05-19-2020 TSH Qn TSH (THYROID STIMULATING HORMONE) (75438) [facility] Work Phone: Start: 04-14-2020 Free T4 [Mass/Vol] T4, FREE (T HYROXINE) (43264) [facility] Work Phone: Comment on above: to be done 6weeks ( end april ) Start: 04-14-2020 TSH Qn TSH ([id number]) [facility] Work Phone: Comment on above: to be done 6 weeks ( end april) Start: 04-14-2020 Free T3 [Mass/Vol] T3, FREE (TRIDOTHYRONINE) (33714) [facility] Work Phone: Comment on above: to be done 6weeks ( end april) Start: 04-14-2020 Microsomal antibodie s each Anti TPO Antibody ([id number]) [facility] Work Phone: Start: 04-14-2020 Procedure [facility] Work Phone: Start: 12-14-2019 Procedure Education [facility] Work Phone: Start: 06-18-2019 Flushing of Port-a-cath [facility] Start: 06-18-2019 Irrigation of vascul ar catheter [facility] Start: 05-27-2019 [facility] Start: 03-31-2019 [facility] Start: 03-18-2019 [facility] Start: 02-05-2019 [facility] Start: 02-04-2019 [facility] Start: 01-21-2019 [facility] Start: 01-09-2019 [facility] Start: 01-05-2019 [facility] Start: 01-02-2019 Procedure [facility] Work Phone: Start: 01-02-2019 Provider Instruction s for Treatment [facility] Work Phone: Start: 01-02-2019 Comprehensive metabo lic panel Metabolic Panel, Comprehensive (09573) [facility] Work Phone: Start: 01-02-2019 Cobalamin (Vitamin B 12) mass conc VITAMIN B12 AND FOLATES ([id number]) [facility] Work Phone: Start: 01-02-2019 Ammonia mass conc (P) AMMONIA (92811 ) [facility] Work Phone: Start: 12-15-2018 Blood count complete auto&auto difrntl wbc [facility] Work Phone: Start: 12-15-2018 Comprehensive metabo lic panel [facility] Work Phone: Start: 12-15-2018 Procedure [facility] Work Phone: Start: 12-15-2018 Provider Instruction s for Treatment [facility] Work Phone: Start: 2012 Prostate specific antigen measurement PSA Prostate Cancer Screening [facility] Start: 2012 Zoster Vaccines (1 o f 2) Zoster Vaccines (1 of 2) [facility] Start: 1984 DTaP/Tdap/Td Vaccine s (1 - Tdap) DTaP/Tdap/Td Vaccines (1 - Tdap) [facility] Start: 1981 Pneumococcal vaccination Pneumococcal Vaccine (1 of 2 - PCV) [facility] Start: 1980 Hepatitis C screening Hepatitis C [facility] Start: 1968 Pneumococcal Vaccine : Pediatrics (0 to 5 Years) and At-Risk Patients (6 to 64 Years) (1 - PCV) Pneumococcal Vaccine: Pediatrics (0 to 5 Years) and At-Risk Patients (6 to 64 Years) (1 - PCV) [facility] Start: 1968 Pneumococcal Vaccine : Pediatrics (0 to 5 Years) and At-Risk Patients (6 to 64 Years) (1 of 2 - PCV) Pneumococcal Vaccine: Pediatrics (0 to 5 Years) and At-Risk Patients (6 to 64 Years) (1 of 2 - PCV) [facility] Start: 1963 MMR Vaccines (1 of 1 - Standard series) MMR Vaccines (1 of 1 - Standard series) [facility] Start: 1962 COVID-19 Vaccine (#1) COVID-19 Vacci ne (#1) [facility] Start: 1962 Annual wellness visit Welcome to Medicare Visit [facility] Start: 1962 HIV screening HIV Screening [facility] Start: 1962 Lipid panel Lipid Panel [facility] Start: 1962 Screening for malign ant neoplasm of colon [facility] Start: 1962 Yearly Adult Physical Yearly Adult P hysical [facility] CBC W Auto Different ial panel - Blood [facility] Work Phone: CT Chest W contrast IV [facility] Work Phone: CT Chest W contrast IV [facility] CT Chest W contrast IV [facility] CT Chest W contrast IV [facility] CT Neck W contrast IV [facility] Work Phone: CT Neck W contrast IV [facility] Magnesium [Mass/volu me] in Serum or Plasma [facility] Work Phone: Patient Education [facility] Work Phone: Patient referral [facility] Work Phone: Patient referral to dietitian [facility] Work Phone: Patient referral to dietitian [facility] Work Phone: [facility] Work Phone: [facility] Work Phone: [facility] Work Phone: [facility] Work Phone: [facility] Work Phone: [facility] NEGATED: Highlighted row has been ruled out! Planned Goals not documented XC-Vrpqhcbjnucdbs-Suz in [place] [address] Work Phone: Payers Date Payer Category Payer Medicare (Managed Care) [employer] [id number] 2024 Self-pay [id number] 2024 Medicare [id number] 2020 Managed Care (Private) [facility] [id number] 2020 Private Health Insurance [facility] [id number] 2020-Present [address] [address] [place] [address] [id number]. [id number] 2019 Unknown 2019 Unknown [id number] 2018 Private Health Insurance [id number] 1960 Unknown [id number] 2.16.840.1.027782.3.579. 2.716 1962 Unknown [id number] 2.16.840.1.920313.3.579. 2.356 1962 Unknown [id number] 2.16.840.1.359585.3.579. 2.356 1962 Unknown [id number] 2.16.840.1.093459.3.579. 2.356 1962 Unknown [id number] 2.16.840.1.761232.3.579. 2.356 1962 Unknown [id number] 2.16.840.1.962596.3.579. 2.356 1962 Unknown [id number] 2.16.840.1.008833.3.579. 2.356 1962 Unknown [id number] 2.16.840.1.035883.3.579. 2.356 1962 Unknown [id number] 2.16.840.1.100063.3.579. 2.356 1962 Unknown [id number] 2.16.840.1.249899.3.579. 2.1245 1962 Unknown [id number] 2.16.840.1.969182.3.579. 2.1244 1962 Unknown [id number] 2.16.840.1.833180.3.579. 2.1244 1962 Unknown [id number] 2.16.840.1.431770.3.579. 2.1244 Private Health Insurance [id number] Unknown [id number] Unknown [id number] 2.16.840.1.832783.3.579. 2.462 Unknown [id number] 2.16.840.1.974926.3.579. 2.462 Unknown [id number] 2.16840.1.116508.3.579. 2.462 Unknown [id number] 2.16840.1.213559.3.579. 2.462 Unknown [id number] 2.840.1.758689.3.579. 2.462 Unknown [id number] 2.840.1.110609.3.579. 2.462 Unknown [id number] 2.840.1.933402.3.579. 2.462 Unknown [id number] 2.840.1.779429.3.579. 2.462 Unknown [id number] 2.840.1.833653.3.579. 2.462 Unknown [id number] 2.840.1.961619.3.579. 2.462 Unknown [id number] 2.840.1.499638.3.579. 2.462 Unknown [id number] 2.840.1.731053.3.579. 2.462 Unknown [id number] 2.840.1.988411.3.579. 2.462 Unknown [id number] 2.840.1.442864.3.579. 2.462 Unknown [id number] 2.840.1.509612.3.579. 2.462 Unknown [id number] 2.840.1.873294.3.579. 2.462 Unknown [id number] 2.840.1.745274.3.579. 2.462 Unknown [id number] 2.840.1.455833.3.579. 2.462 Unknown [id number] 2.840.1.040429.3.579. 2.462 Unknown [id number] 2.16.840.1.584564.3.579. 2.462 Unknown [id number] 2.16.840.1.695531.3.579. 2.462 Unknown [id number] 2.16.840.1.903026.3.579. 2.462 Unknown [id number] 2.16.840.1.747471.3.579. 2.462 Unknown [id number] 2.16.840.1.368187.3.579. 2.462 Unknown [id number] 2.16.840.1.308123.3.579. 2.462 Social History Date Type Detail Facility [...] 1 pack a day Start: 12-10-2021 End: 05-14-2025 Tobacco smoking consumption unknown [facility] Start: 11-28-2020 Cigarettes [facility] Start: 1960 Sex Assigned At Male [facility] Former smoker. [facility] Work Phone: Start: 09-02-2023 End: 03-01-2025 Tobacco smoking status NHIS Never smoked tobacco [facility] Work Phone: Start: 09-02-2023 End: 03-01-2025 Tobacco use and exposure Smokeless tobacco non-user [facility] Work Phone: Start: 09-02-2023 End: 06-10-2025 Alcohol intake Lifetime non-drinker (finding) [facility] Work Phone: Start: 09-02-2023 End: 02-03-2024 Tobacco use panel [facility] Work Phone: Start: 1960 Sex Assigned At Not on file [facility] Work Phone: Start: 08-23-2023 End: 03-01-2025 Exposure to SARS-CoV-2 (event) Not sure [facility] Start: 10-20-2024 End: 04-12-2025 Tobacco smoking status NHIS Ex-smoker (finding) [facility] Start: 12-22-2024 End: 12-31-2024 Sex Male (finding) [facility] Start: 08-18-2022 Sex Male [facility] NEGATED: Highlighted row - QC-Tzyqdyonvibvvx-Kd min [place] [address] Work Phone: NEGATED: Highlighted rowStart: MICHELLEF History of tobacco use Passive smoker [facility] Work Phone: Medical Equipment Procedure Code [...] Pin, 2.7 X 80mm, 9mm Thread Case [id number] Start: 11-07-2021 Comment on above: Description: Convert ed from [facility]. Please see archived information for full log information. Peg Kit, Gastro, Standard, Push, 20 Fr, W/Xylocaine Ampule Case [id number] Start: 11-07-2021 Comment on above: Description: Convert ed from [facility]. Please see archived information for full log information. Clamp, Cmf X-Fix , Connection Bar Cmf 3.2mm Pin Case [id number] Start: 11-07-2021 Comment on above: Description: Convert ed from [facility]. Please see archived information for full log information. Device, Anasotmo tic 3.0mm Case [id number] Start: 11-07-2021 Comment on above: Description: Convert ed from [facility]. Please see archived information for full log information. Probe, Flow Dopp ler Brenton Case [id number] Start: 11-07-2021 Comment on above: Description: Convert ed from [facility]. Please see archived information for full log information. Probe, Flow Dopp ler Brenton Case [id number] Start: 11-10-2021 Comment on above: Description: Convert ed from [facility]. Please see archived information for full log information. Screw, Lock 2.0 X 11 Maxdrv Ti Alloy Case [id number] Start: 11-07-2021 Comment on above: Description: Convert ed from [facility]. Please see archived information for full log information. Drill, Klsm 2.2 Case [id number] Start: 11-07-2021 Comment on above: Description: Convert ed from [facility]. Please see archived information for full log information. Plate Level One Cmf Case [id number] Start: 11-07-2021 Comment on above: Description: Convert ed from [facility]. Please see archived information for full log information. Additional Information:Plateper oracle [facility] 11/08/2021 External Fixator Klever Case [id number] Start: 11-07-2021 Comment on above: Description: Convert ed from [facility]. Please see archived information for full log information. Additional Information:External Fixator Rodper range [facility] 11/08/2021 Screw, Lock 2.0 X 17 Maxdrv Ti Alloy Case [id number] Start: 11-07-2021 Comment on above: Description: Convert ed from [facility]. Please see archived information for full log information. Screw, Lock 2.0 X 13 Maxdrv Ti Alloy Case [id number] Start: 11-07-2021 Comment on above: Description: Convert ed from [facility]. Please see archived information for full log information. Screw, Lock 2.0 X 15 Maxdrv Ti Alloy Case [id number] Start: 11-07-2021 Comment on above: Description: Convert ed from [facility]. Please see archived information for full log information. Device, Anasotmo tic 2.5mm Case [id number] Start: 11-07-2021 Comment on above: Description: Convert ed from [facility]. Please see archived information for full log information. Probe, Flow Dopp ler Claude-Raz Case [id number] Start: 11-07-2021 Comment on above: Description: Convert ed from [facility]. Please see archived information for full log information. Goals Date Patient Goal Desired Activity /State Functional Status Date Assessment Result Facility 09-15-2024 Functional status Ambulates [facility] Work Phone: 01-25-2022 Functional status Ambulates;Up ad yaneth [facility] Work Phone: 01-23-2022 Functional status Ambulates;Up ad yaneth [facility] Work Phone: Bladder: fully continent [facility] NEGATED: Highlighted row Functional performance Functional status health issues are not documented Disease YS-Avvqqlyceyenin-Aj min [place] [address] Work Phone: Mental Status Date Assessment Result Facility 05-07-2025 Cognitive Function house [facility] Work Phone: 04-15-2025 Cognitive function Voice/Name [facility] Work Phone: 10-21-2024 Cognitive function Level Of Cons ciousness Sedated [facility] Work Phone: 10-21-2024 Cognitive function Voice/Name [facility] Work Phone: 09-15-2024 Cognitive function Awake;Alert;A ppropriate ;Follows Commands [facility] Work Phone: 09-03-2023 Cognitive function Level Of Cons ciousness Follows Commands;Drowsy [facility] Work Phone: 09-03-2023 Cognitive function Voice/Name [facility] Work Phone: 01-25-2022 Cognitive function Voice/Name [facility] Work Phone: 01-23-2022 Cognitive function Voice/Name [facility] Work Phone: 11-09-2021 Cognitive functi ons [id number] [facility] 04-30-2019 Cognitive function Mood Descript ion Appropriate [facility] Work Phone: NEGATED: Highlighted row Cognitive function [Interpretation] Cognitive status health issues are not documented Disease SL-Yfbrqaciwfaysz-I dmin [place] [address] Work Phone: Clinical Notes 05-24-2019 to 06-10-2025 Dayami Jha MD - 06/10/2025 10:00 AM EDTPatient Instructions Note Date & Type Note Facility 06-10-2025 History of Presen t illness Narrative [facility] Department of Otolaryngology-Head and Neck Surgery Head and Neck Surgical Oncology Consultation Patient Name: My Jama : 1960 Referring Physician: No ref. provider found Reason For Consult: Establish head and neck oncologic care and surveillance Oncologic History: Hx [id number] SCCa left neck of unknown primary 12/22/18: FNA of left neck mass, +SCCa, p16- 01/05/19: PET CT w two hypermetabolic foci in left neck and increased avidity in left pharynx 01/30/19: triple endoscopy, left tonsillectomy, uvulectomy. Path without malignancy or high-grade dysplasia 03/23/19: completed definitive BREAD STACKER Hx [id number] oral cavity SCCa 11/07/21: s/p triple, trach, PEG, composite resection, excision of skin and soft tissue, segmental mandibulectomy, right neck dissection, left neck exploration for vessels, reconstruction with left ALT and left fibular free flap 02/06/22: completed adjuvant BREAD STACKER 04/02/22: increasing size of left neck wound; cultures obtained with +MRSA 04/2022: underwent serial debridements of left neck wound 05/2022: Integra placed over neck wound without take 09/03/23: Esophagoscopy and dilation by Dr. Akhtar (GI) 01/2024: Esoph & dilation, botox by Dr. Akhtar 07/2024: Esoph and dilation, botox by Dr. 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 Akhtar 04/2025: repeat dilation and botox injection by Dr. kAhtar History Of Present Illness My Jama is a 64 y.o. 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 He developed a chronic left neck wound which has never entirely healed and has previously undergone serial debridements and failed Integra placement. Remains trach-dependent with chronic dysphagia s/p frequent esophageal dilations with GI. Last seen by Dr. Brooks 03/01/2025. Reports he is overall doing ok. He had another dilation and CP botox injection w Dr. Akhtar last month with a transient benefit lasting a couple weeks but swallowing is back to where it was before. Has to grind everything up in order to eat. Weight is overall stable, around 120 lbs. Denies odynophagia, hemoptysis, neck lumps or bumps. No recent change in chronic left neck wound including progression, pain, or new drainage. 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 Review of Systems A 12-point review of systems was performed and noted be negative except for that which was mentioned in the history of present illness Physical Exam: Vitals: There were no vitals taken for this visit. Constitutional: No acute distress Voice: able to speak with finger-capping of tracheostomy tube; voice is breathing and somewhat strangled but intelligible Respiration: Breathing comfortably, no stridor Cardiovascular: No clubbing/cyanosis/edema in hands Eyes: EOM intact, sclera normal Neuro: Alert and oriented times 3, Cranial nerves II-XII grossly intact and symmetric bilaterally Head and Face: Symmetric facial features, no masses or lesions Salivary Glands: no palpable parotid or submandibular masses Ears: Normal external ears, external auditory canals normal caliber and patent, TMs intact with clear middle ear spaces. Hearing aids removed for exam; must speak at higher volume than normal to be heard. Nose: External nose midline, anterior rhinoscopy is normal with limited visualization to the anterior aspect of the interior turbinates, no bleeding or drainage, no lesions Oral Cavity: ~3 finger-breadth mouth opening. Edentulous. Well-integrated free flap along anterior floor of mouth and chin with tethered tongue anteriorly. Tongue is soft without palpable masses. No suspicious oral cavity lesions or mucosal changes. Oropharynx: There are no mucosal abnormalities noted within the oropharynx. Uvula surgically absent with intact scar extending along left soft palate and lateral pharyngeal wall. Soft to palpation along base of tongue and lateral pharyngeal johnson. Neck/Lymph: 6.0 Shiley tracheostomy tube in place with ties; mild burden of thin secretions. Severe postradiation fibrosis without palpable neck masses. ~3 cm dry wound superior and to left of tracheostoma consistent with known focus of soft tissue necrosis. Trachea midline Skin: neck incisions healed, no palpable mass Psych: Alert and oriented with appropriate mood and affect Procedure Note: Diagnostic Flexible Laryngoscopy (34883) Indication: patient symptoms requiring evaluation of pharyngeal/laryngeal/hypophary ngeal structures Surgeon: Dayami Jha MD Informed Consent: The procedure, risks, and benefits were discussed with the patient and verbal consent obtained to proceed. Procedure: Topical anesthesia (lidocaine) was used to spray the nasal mucosa. A flexible laryngoscope was inserted through the nasal cavity. The scope was then passed through the nasopharynx, oropharynx, and supraglottis. The vallecula, hypopharynx, supraglottis, glottis and subglottis were then visualized. The scope was then removed. The patient tolerated the procedure with no complications. Findings: Difficult visualization of posterior oropharynx and larynx due to extent of posttreatment edema and secretion burden. Severe edema of laryngeal inlet without clear view of true vocal folds. Unable to assess true vocal fold mobility. No obvious suspicious masses or lesions. Attestation: I performed the procedure in its entirety, or was present with the resident/fellow for the entirety of the procedure. Medications: Scheduled medications Scheduled Medications[4] PRN medications PRN Medications[5] Recent Labs: No results found for this or any previous visit (from the past 24 hours). Imaging: no recent imaging to review Assessment and Plan: My Jama is a 64 y.o. male with a complex head and neck oncologic history including [id number] p16- SCCa left neck of unknown primary s/p definitive BREAD STACKER completed 03/23/2019 followed by [id number] oral cavity SCCa s/p composite resection with segmental mandibulectomy, R neck dissection, and left ALT and fibula free flap reconstruction on 10/28/21 followed by adjuvant BREAD STACKER completed 02/06/22 who presents in follow up . His posttreatment course has been notable for soft tissue necrosis of the left neck with a stable chronic wound which is dry on examination today. He remains tracheostomy dependent with chronic dysphagia requiring serial esophageal dilations however enteral intake is PO. Exam today is reassuring without evidence of disease recurrence. At his previous visit with Dr. Brooks. The possibility of a functional laryngectomy to address his nonfunctional larynx and improve his dysphagia was discussed. We readdressed this today, and the potential risks and benefits of surgery were reviewed. He would require pedicled or free tissue transfer given his extensive treatment history including radiation x 2 and two prior free flaps. I do worry about his potential to heal another large surgical wound given the chronic soft tissue necrosis in his neck. We will further evaluate his anatomy with CT imaging, facilitate BUSINESS OBJECTS DEVELOPER pre-laryngectomy counseling, and the patient will take time to consider his options. 1. Oncologic surveillance / second primary screening: - No evidence of locoregional disease on exam - CT neck and chest w contrast - follow up in 3 months 2. Radiation Fibrosis: - severe - cont massage and neck/shoulder exercises 3. Radiation associated xerostomia - present - cont hydration and oral care 4. Lymphedema - present - cont massage and neck exercises 5. Radiation/surgery associated hypothyroidism - needs updated TSH 6. Dysphagia - chronic, severe - prior MBS in 2022 with aspiration - remains PO dependent - referral to BUSINESS OBJECTS DEVELOPER for pre-laryngectomy counseling 7. Carotid stenosis screening: - duplex scan ordered 8. Soft tissue necrosis of left neck - stable per chart review, patient report - start Vitamin E and trental Dayami Jha MD I spent approximately 45 minutes on the care of this patient with >50% dedicated to counseling and coordination of care given the higher complexity of the decision making in planning for their care. This time was spent reviewing old records and educating the patient about their disease processes, treatment, prognosis, and possible side effects/complications. 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 Hypothyroidism Oropharyngeal dysphagia Sensorineural hearing loss (SNHL) of both ears Tracheostomy dependence (Multi) Open wound of neck [2] Past Medical History: Diagnosis Date Immunization not carried out for unspecified reason COVID-19 vaccination not done Other specified health status No pertinent past medical history [3] Past Surgical History: Procedure Laterality Date CT ANGIO AORTA AND BILATERAL ILIOFEMORAL RUN OFF INCLUDING WITHOUT CONTRAST IF PERFORMED 10/31/2021 CT AORTA AND BILATERAL ILIOFEMORAL RUNOFF ANGIOGRAM W AND/OR WO IV CONTRAST 10/31/2021 [facility] [place] [facility]CILL[facility] LEGACY [4] [5] documented in this encounter [facility] Work Phone: 06-10-2025 Instructions Latosha Guerra RN - 06/10/2025 10:00 AM EDT documented in this encounter [facility] Work Phone: 04-15-2025 Evaluation note Diagnosis Onset Date Resolution Esophageal dysphagia chronic April 15, 2025 7:13am [facility] Work Phone: 1(293) 680-834007-24-2025 Consult note [facility] Medical Records Department [address] [address] Anesthesia Postop Eval I 04/15/25900 MR#: [id number] Acct: [id number] Name: MY JAMA W Rep #:[id number] : 1960 64 From: Romulo Lockett PCP: Sadie Santiago 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 Status:REG S DC Y Race: C Location: [place] [address] Anesthesia: Postop Eval I Current Vital Signs Temperature: 97.9 F Pulse Rate: 100 Blood Pressure: 87/59 Respiratory Rate: 16 Pulse Ox: 100 Oxygen Delivery Method: Room Air Assessment Airway patent: Yes Spontaneous unlabored respirations: Yes Mental status: Asleep nausea: No Vomiting: No Anesthesia Complication: No Fluid Hydration Crystalloid volume administer (ml): 300 Total IV fluid infused: 300 Progress Note Anesthesia document: Postop Eval 1 completed: Yes 04/15/25901 > Date _ Romulo Manley Signature: Date CC: ~ Signed [facility]07-24-2025 Procedure note [facility] Medical Records Department [address] [address] EGD Report MR#: [id number] Acct: [id number] Name: MY JAMA W Rep #:[id number] : 1960 64 From: Elliott Akhtar DO PCP: ERWIN SantillanC Status:REG S DC Patient Name: My Jama Procedure Date: 04/15/2025 8:26 AM Date of : 1960 Age: 64 Procedure: Upper GI endoscopy Indications: Dysphagia Providers: Elliott Akhtar DO Referring MD: Sadie Santiago Np-damaris Medicines: Monitored Anesthesia Care Patient Profile: This is a 64 year old male. Refer to note in patient chart for documentation of history and physical. Patient has symptoms of dysphagia with both liquids and solids. Complications: [...] patient has taken no anticoagulant or antiplatelet agents except for NSAID medication. ASA Grade Assessment: II - A patient [...] and oxygen saturations were monitored continuously. The Endoscope was introduced through the mouth, and advanced to the second part of duodenum. The upper GI endoscopy was accomplished without difficulty. The patient tolerated the procedure well. Scope In: 8:40:45 AM Scope Out: 8:51:57 AM Total Procedure Duration Time 0 hours 11 minutes 12 seconds Findings: One benign-appearing, intrinsic severe stenosis was found 18 to 24 cm from the incisors. This stenosis measured 5 mm (inner diameter) x 6 cm (in length). The stenosis was traversed after dilation. A guidewire was placed and the scope was withdrawn. Dilation was performed with a Savary dilator with no resistance at 51 Fr. The dilation site was examined following endoscope reinsertion and showed moderate improvement in luminal narrowing. Estimated blood loss: none. One benign-appearing, intrinsic moderate (circumferential scarring or stenosis; an endoscope may pass) stenosis was found 20 to 25 cm from the incisors. The stenosis was traversed. Area was successfully injected with 100 units botulinum toxin. The entire examined stomach was normal. No gross lesions were noted in the entire examined duodenum. Impression: - Benign-appearing esophageal stenosis. Dilated. - Benign-appearing esophageal stenosis. Injected with botulinum toxin. - Normal stomach. - No gross lesions in the entire examined duodenum. - No specimens collected. Recommendation: - Discharge patient to home. - Resume previous diet. - Continue present medications. Procedure Code(s): --- Professional --- 29548, Esophagogastroduodenoscopy, flexible, transoral; with insertion of guide wire followed by passage of dilator(s) through esophagus over guide wire 55024, 59,51, Esophagogastroduodenoscopy, flexible, transoral; with directed submucosal injection(s), any substance CPT copyright 2021 [employer]. All rights reserved. The codes documented in this report are preliminary and upon building materials sales attendant review may be revised to meet current compliance requirements. Elliott Akhtar DO 04/15/2025 8:56:45 AM This report has been signed electronically. Number of Addenda: 0 Note Initiated On: 04/15/2025 8:26 AM 04/15/25856 Date _ Elliott Akhtar DO Cosigner Signature: Date (if indicated) CC: LOADER MAGAZINE GRINDERChristineC Sadie Santiago; Elliott Akhtar DO ~ Date Dictated: 04/15/25825 Date Transcribed: Radio Communications Superintendent: RF Signed [facility]07-24-2025 Procedure note [facility] Medical Records Department [address] [place] [address] Operative Report - CC Letter MR#: [id number] Acct: [id number] Name: MY JAMA W Rep #:[id number] : 1960 64 From: Elliott Akhtar DO PCP: YARI Santillan Status:REG S DC 04/15/2025 Yari Santillan Re : Upper GI endoscopy procedure for My Jama Deafacundo Santiago This procedure was performed on March. My impressions and recommendations are as follows: Impressions : - Benign-appearing esophageal stenosis. Dilated. - Benign-appearing esophageal stenosis. Injected with botulinum toxin. - Normal stomach. - No gross lesions in the entire examined duodenum. - No specimens collected. Recommendations : - Discharge patient to home. - Resume previous diet. - Continue present medications. My findings are described in the full procedure note, which is enclosed. If I can be of further assistance, please feel free to contact me at . Sincerely, Elliott Akhtar DO 04/15/2025 8:56:45 AM This report has been signed electronically. 04/15/25856 Date _ Elliott Akhtar DO Cosigner Signature: Date (if indicated) CC: LOADER MAGAZINE GRINDER-C Sadie Santiago; Elliott Akhtar DO ~ Date Dictated: 04/15/25825 Date Transcribed: Radio Communications Superintendent: RF Signed [facility]07-24-2025 Consult note [facility] Medical Records Department [address] [place] [address] Pre-Anesthesia Evaluation 04/15/25 08 MR#: [id number] Acct: [id number] Name: MY JAMA Rep #:[id number] : 1960 64 From: Roz dow MD PCP: YARI Santillan Status:REG S DC Y Race: C Location: AC AC18-1 ASA Classification* ASA Classification ASA Classification: 3 Assessment & Plan Anesthesia* Anesthesia Assessment Anesthesia Assessment: Discussed sedation and/or anesthesia options, risks, benefits, and alternatives with patient/parents/legal guardian/POA. Questions invited. The patient/parents/legal guardian/POA seems to understand and agrees to proceedwith anesthesia plan. Reviewed the physical assessment, medical history, allergy history and patient home medications list prior to surgery/procedure/anesthetic and documented any changes. Performed airway and anesthesia risk assessments. Anesthesia Type Anesthesia Type: General and MAC History Source History Obtained from:: Patient and Chart Anesthesia Focused Assessment* Temperature: 97.9 F Pulse Rate: 67 Blood Pressure: 167/70 Respiratory Rate: 16 Pulse Ox: 99 Airway Assessment Mouth opens: 2 cm Mallampati Score: IV Teeth Condition: Full and Missing Neck Range of motion (ROM): Limited ROM Comment: Has a trach Labs Anesthesia Preop lab: CBC WBC 7.5 K/mm3 (4.4-11.0) 05/13/24 10:47 05/13/24 RBC 4.83 M/mm3 (4.6-6.2) 05/13/24 10:47 05/13/24 Hgb 14.6 g/dL (13.0-16.5) 05/13/24 10:47 05/13/24 Hct 44.3 % (40-54) 05/13/24 10:47 05/13/24 Plt Count 291 K/mm3 (150-450) 09/15/24 08:52 09/15/24 CHEMISTRY Potassium 3.9 mmol/L (3.5-5.1) 05/13/24 10:47 05/13/24 Sodium 136 mmol/L (136-145) 05/13/24 10:47 05/13/24 Magnesium 1.9 mg/dL (1.6-2.6) 05/23/22 11:05 05/23/22 Phosphorus 3.9 mg/dL (2.5-4.9) 05/23/22 11:05 05/23/22 BUN 10 mg/dL (7-18) 05/13/24 10:47 05/13/24 Creatinine 0.46 mg/dL (0.70-1.30) L 05/13/24 10:47 Glucose 110 mg/dL (74-106) H 05/13/24 10:47 05/13/24 TSH 2.570 uIU/mL (0.358-3.740) 05/13/24 10:47 04/24 10/16 COAG PT 12.8 SECONDS (11.7-14.9) 09/15/24 08:52 Pre-Assessment Diagnosis/Proposed Procedure Planned Operative Procedure(s): EGD Anesthesia History Anesthesia History - staff services manager: Anesthesia History - staff services manager Hx Hospitalization No 04/12/25 11:13 Any Problems With Anesthesia No 04/12/25 11:13 Cholinesterase deficiency No 04/12/25 11:13 You/Your Family Experience No 04/12/25 11:13 fever (hyperthermia) with Relationship Recent Exposure to Contagious No 04/15/25 07:40 Disease Does patient have nerve No 04/12/25 11:13 stimulator Patient instructed to have device shut off --Does patient have Pacemaker No 04/15/25 07:40 or ICD? When Was Last Pacemaker Check QUESTION #4 FULL TEXT: You/Your Family Experience fever (hyperthermia) with Anesthesia Last Oral Intake Last Oral intake: Last Oral Intake NPO since 00:01 04/15/25 07:40 Meds taken in AM with sips of No 04/15/25 07:40 water? Meds patient instructed to take am of surgery PONV PONV - staff services manager: PONV - staff services manager Female No 04/12/25 11:13 HX of Motion Sickness No 04/12/25 11:13 HX of N/V After Surgery No 04/12/25 11:13 Non-Smoker Yes 04/12/25 11:13 Duration of Surgery greater No 04/12/25 11:13 than 60 minutes Number of Risk Factors 1 04/12/25 11:13 PONV Score Low Risk 04/12/25 11:13 Height & Weight Height & Weight: Anesthesia: Height & Weight Height 5 ft 5 in 04/15/25 07:40 Weight: 54 kg 04/15/25 07:40 Body Mass Index (BMI) 19.8 04/15/25 07:40 Respiratory Assessment Respiratory Assessment - staff services manager: Respiratory Tract Infection Hx - staff services manager Hx Respiratory Tract Infection No 04/12/25 11:13 STOP Sleep Apnea STOP Sleep Apnea - staff services manager: STOP Sleep Apnea - staff services manager Hx Hypertension Yes: CONTROLLED WITH MED 04/12/25 11:13 Hx Sleep Apnea No 04/12/25 11:13 CPAP BIPAP Do you snore loudly (louder No 04/12/25 11:13 than talking or can be heard Do you often feel tired/ No 04/12/25 11:13 fatigued/ sleepy during daytime? Has anyone observed you stop No 04/12/25 11:13 breathing during sleep? STOP Results Negative 04/12/25 11:13 QUESTION #5 FULL TEXT : Do you snore loudly (louder than talking or can be heard through closeddoors)? Tobacco Use History Tobacco Use History - staff services manager: Tobacco Use History - staff services manager Tobacco Use Smoking Status Former smoker 04/12/25 11:13 Hx Tobacco Use No 04/12/25 11:13 Years Smoking Packs Smoked per Day Smoking Cessation Date was Yes - quit smoking within 15 04/12/25 11:13 within the last 15 years years Hx Smoking Cessation Date 07/24/21 04/12/25 11:13 Hx Smoking Cessation Counseling Hematologic Medial History Hematologic Hx - staff services manager: Hematologic Medical Hx - putty glazer Hx of Blood Transfusion No 04/12/25 11:13 Hx of Transfusion in last 3 No 04/12/25 11:13 Months Date of Last Transfusion (if within last 3 months) Ever experience any problems No 04/12/25 11:13 with transfusion(s)? Specify any problems Hx of Preganancy in last 3 N/A 04/12/25 11:13 Months Nurse Filling Out Transfusion NBUCHER 04/12/25 11:13 & Questions: Date: 04/12/25 04/12/25 11:13 Time: 11:14 04/12/25 11:13 Patient unable to answer at this time (ie. confused, unrespo /Reproduction History /Reproductive History - staff services manager: /Reproductive Hx- staff services manager Hx Now Gestational Age (in weeks): EDC: Hx Hx Para Hx Section SAB No 04/12/25 11:13 Active Medications Active Medications: Current Medications Generic Name Dose Route Start Last Admin Trade Name Freq PRN Reason Stop Dose Admin Lactated Ringer's 1,000 mls @ 15 mls/hr 04/15/25 07:30 04/15/25 07:46 IV 15 mls/hr .Q48H ZEENAT Administration PFSH Medical History Wears hearing aid Wears [...] side of neck Difficulty swallowing Home Medications ?Medication ?Instructions ?Recorded ?Last Taken ?Type albuterol sulfate 1.25 mg/3 mL 1.25 mg (3 mL) inhalati on Q4H PRN 12/10/21 Unknown Rx solution for nebulization bronchospasm #90 mL amlodipine 5 mg tablet 5 mg PO DAILY bp 01/23/22 History sodium chloride 1,000 mg soluble 3 g PO BID #60 tabs 0 01/25/22 04/14/25 Rx tablet nystatin 100,000 unit/mL oral 1 ml PO Q6H PRN mouth ir ritation 02/14/22 Unknown History suspension oxycodone 5 mg tablet 5 mg PO BID PRN pain 2 04/15/25 History Levothyroxine 100 mcg PO DAILY thyroid 08/1504/15/25 History folic acid 400 mcg tablet 0.4 mg PO DAILY 09/15/24 History cholecalciferol (vitamin D3) 50 50 mcg PO DAILY 04/14/25 History mcg (2,000 unit) capsule (Vitamin D3) mecobalamin (vitamin B12) 1,000 1,000 mcg PO DAILY 04/14/25 History mcg chewable tablet pentoxifylline 400 mg 400 mg PO TID 04/12/2504/14 History tablet,extended release pilocarpine HCl 5 mg tablet 5 mg PO TID 04/12/2504/14 History Allergy/AdvReac Type Severity Reaction Status Date / Time No Known Allergies Allergy Verified 04/15/25 07:36 Family History Mother CVA (cerebral vascular accident) Surgical History History of esophagogastroduodenoscopy (EGD) History of mandibular surgery Hx of tonsillectomy History of removal of Port-a-Cath s/p port placement (~01/26/19) S/P percutaneous endoscopic gastrostomy (PEG) tube placement (~01/26/19) history of biopsy neck Social History Smoking [...] do you feel safe at home: Yes Review of Systems (Anesthesia) ROS Narrative System reviewed and no additional complaints, except as documented. 04/15/25 0802 reyes QUESADA> Date _ Roz Collins MD Cosigner Signature: Date CC: ~ Signed [facility]07-24-2025 History and physical note [facility] Medical Records Department [address] [place] [address] History & Physical Exam 04/15/25 0739 MR#: [id number] Acct: [id number] Name: MY JAMA Rep #:[id number] : 1960 64 From: Elliott Friend DO PCP: YARI Santillan Status:REG S DC Location: [facility] AC18-1 HPI - General General Date of Admission: 04/15/25 Date of Service: 04/15/25 Chief Complaint: Esophageal dysphagia HPI Narrative MY JAMA, is a 64 M who presents for an upper endoscopy regarding severe esophageal dysphagiasecondary to radiation. 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 Underwent radiation with concurrent carboplatin for head/neck cancer. At follow up it was noted he has dysphagia. ? Modified Barium 7 moderate oropharyngeal dysphagia, mild esophageal dysphasia. ? Modified Barium 06.15.22 moderate-severe oropharyngeal phase dysphagia, puree texture. ? Modified Barium 08.05.23 severe oropharyngeal phase dysphagia, recommend puree texture. High risk for aspiration *I established 08.30.23 he has had a tracheostomy [...] forceps for evaluation of eosinophilic esophagitis. OV 5.21.24 pt reports continued difficulty swallowing. EGD 5.24 The nasopharynx and oropharynx are abnormal. Benign-appearing esophageal stenosis. Dilated. Injected with botulinum toxin. No gross lesions inthe entire stomach. No gross lesions in the duodenal bulb. No specimens collected. Modified Barium Swallow 10..24 Severe oropharyngeal dysphagia OV 11.22.24 pt reports continued difficulty swallowing, denies other GI symptomsof concern at this time. EGD 10.21.25 Benign-appearing esophageal stenosis. Dilated. Small hiatal hernia. No gross lesions inthe duodenal bulb. No specimens collected. Modified Barium Swallow 3.25 severe oropharyngeal dysphagia OV 5.22.25 pt reports that he is feeling well overall and denies GI symptoms of concern, but would like to schedule his next EGD. [facility] Medical History Wears hearing aid [...] side of neck Difficulty swallowing Home Medications ?Medication ?Instructions ?Recorded ?Last Taken ?Type albuterol sulfate 1.25 mg/3 mL 1.25 mg (3 mL) inhalati on Q4H PRN 12/10/21 Unknown Rx solution for nebulization bronchospasm #90 mL amlodipine 5 mg tablet 5 mg PO DAILY bp 01/23/22 History sodium chloride 1,000 mg soluble 3 g PO BID #60 tabs 0 01/25/22 04/14/25 Rx tablet nystatin 100,000 unit/mL oral 1 ml PO Q6H PRN mouth ir ritation 02/14/22 Unknown History suspension oxycodone 5 mg tablet 5 mg PO BID PRN pain 2 04/15/25 History Levothyroxine 100 mcg PO DAILY thyroid 08/1504/15/25 History folic acid 400 mcg tablet 0.4 mg PO DAILY 09/15/24 History cholecalciferol (vitamin D3) 50 50 mcg PO DAILY 04/14/25 History mcg (2,000 unit) capsule (Vitamin D3) mecobalamin (vitamin B12) 1,000 1,000 mcg PO DAILY 04/14/25 History mcg chewable tablet pentoxifylline 400 mg 400 mg PO TID 04/12/2504/14 History tablet,extended release pilocarpine HCl 5 mg tablet 5 mg PO TID 04/12/2504/14 History Allergy/AdvReac Type Severity Reaction Status Date / Time No Known Allergies Allergy Verified 04/15/25 07:36 Family History Mother CVA (cerebral vascular accident) Surgical History History of esophagogastroduodenoscopy (EGD) History of mandibular surgery Hx of tonsillectomy History of removal of Port-a-Cath s/p port placement (~01/26/19) S/P percutaneous endoscopic gastrostomy (PEG) tube placement (~01/26/19) history of biopsy neck Social History Smoking [...] safe at home: Yes ROS Constitutional Constitutional: Denies fatigue, fever(s), poor appetite, weight gain or weight loss Gastrointestinal Gastrointestinal: Denies belching, bloating, change in bowel habits, change in stool character, chewing difficulty, coffee ground emesis, constipation, cramping, diarrhea, dyspepsia, dysphagia, earlysatiety, excessive flatus, fecalincontinence, heartburn, hematemesis, hematochezia, hemorrhoids, loose stools, melena, nausea, odynophagia, rectal bleeding, tenesmus, vomiting or weight changes Physical Exam Const alert, oriented x3, no apparent distress and healthy appearing General Appearance: cooperative GI normal to inspection, nondistended, normoactive bowel sounds, soft to palpation,non-tender and non-distended Percussion: normal to percussion Rectal Exam: deferred Assessment & Plan Assessment/Plan (1) Esophageal dysphagia: PLAN: Assessment and Plan Assessment and Plan (1) [...] therapy with radiation and weekly carboplatin chemosensitization 2021. 11/07/2021: PEG tube placement, tracheostomy, composite resection of oral cavity,excision of skin and soft tissue, segmental mandibulectomy, right selective neckdissection and left neck exploration for vessels. Reconstruction was thigh free flap and had complex neck closure with split thickness skingraft. Trach was removed following surgery on 12/05/2021 with the trach re-inserted dueto difficulty breathing when lying flat. Pt has followed with OP ST during and after radiation treatment. Most recent MBSS 06/15/22 recommended moist puree textures / thin liquids with strict aspiration precautions and GIconsult for dilation, very narrow and decreased opening/duration of upper esophageal sphincter. We will repeat his upper endoscopy to evaluate his upper GI tract. He had a severe at the level of the cricopharyngeus muscle involving the upper esophagealsphincter into the proximal esophagus with dilation up to 42 [place] savory dilator. He did well up until a month ago where he had a worsening sw allowing. He will undergo repeat upper endoscopy with Botox injection and dilation of the esophagus. 04/15/25 0741 Cosigner Signature (if applicable): CC: LOADER MAGAZINE GRINDER-C Sadie Santiago; Elliott Akhtar, ~ Signed [facility]07-24-2025 [facility] Medical Records Department [address] [place] [address] History Physical Exam 04/15/25 0739 MR#: [id number] Acct: [id number] Name: MY JAMA Rep #: [id number] : 1960 64 From: Elliott Akhtar DO PCP: YARI Santillan Status:REG [facility] [place] Location: [place] [address] HPI - General General Date of Admission: 04/15/25 Date of Service: 04/15/25 Chief Complaint: Esophageal dysphagia HPI Narrative MY JAMA, is a 64 M who presents for an upper endoscopy regarding severe esophageal dysphagia secondary to radiation. 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 Underwent radiation with concurrent carboplatin for head/neck cancer. At follow up it was noted he has dysphagia. ? Modified Barium 04.13.22 moderate oropharyngeal dysphagia, mild esophageal dysphasia. ? Modified Barium 06.15.22 moderate- severe oropharyngeal phase dysphagia, puree texture. ? Modified Barium 08.05.23 severe oropharyngeal phase dysphagia, recommend puree texture. High risk for aspiration *[facility] established 08.30.23 he has had a tracheostomy [...] forceps for evaluation of eosinophilic esophagitis. OV 5 pt reports continued difficulty swallowing. EGD 02.20.24 The nasopharynx and oropharynx are abnormal. Benign-appearing esophageal stenosis. Dilated. Injected with botulinum toxin. No gross lesions in the entire stomach. No gross lesions in the duodenal bulb. No specimens collected. Modified Barium Swallow 10.24 Severe oropharyngeal dysphagia OV 08.14.24 pt reports continued difficulty swallowing, denies other GI symptoms of concern at this time. EGD 10.21.24 Benign-appearing esophageal stenosis. Dilated. Small hiatal hernia. No gross lesions in the duodenal bulb. No specimens collected. Modified Barium Swallow 3 severe oropharyngeal dysphagia OV 5 pt reports that he is feeling well overall and denies GI symptoms of concern, but would like to schedule his next EGD. [facility] Medical History Wears hearing aid [...] tablet 5 mg PO DAILY bp 01/23/22 04/14/25 History sodium chloride 1,000 mg soluble 3 g PO BID #60 tabs 01/25/2204/14 Rx tablet nystatin 100,000 unit/mL oral 1 ml PO Q6H PRN mouth irritation 0 02/14/22 Unknown History suspension oxycodone 5 mg tablet 5 mg PO BID PRN pain 05/23/2203/24 History Levothyroxine 100 mcg PO DAILY thyroid 01/31/23 04/15/25 History folic acid 400 mcg tablet 0.4 mg PO DAILY 09/15/24 04/14/25 History cholecalciferol (vitamin D3) 50 50 mcg PO DAILY 04/12/25 04/14/25 History mcg (2,000 unit) capsule (Vitamin D3) mecobalamin (vitamin B12) 1,000 1,000 mcg PO DAILY 04/12/25 History mcg chewable tablet pentoxifylline 400 mg 400 mg PO TID 04/12/25 04/14/25 Hi story tablet,extended release pilocarpine HCl 5 mg tablet 5 mg PO TID 04/12/25 04/14/25 Hist ory Allergy/AdvReac Type Severity Reaction Status Date / Time No Known Allergies Allergy Verified 04/15/25 07:36 Family History Mother CVA (cerebral vascular accident) Surgical History History of esophagogastroduodenoscopy (EGD) History of mandibular surgery Hx of tonsillectomy History of removal of Port-a-Cath s/p port placement ( 01/26/19) S/P percuta (more content not included)...[facility]07-09[facility]2025 Procedure note [facility] Pulmonary Services/Neurology [address] [place] [address] MR#: [id number] Acct: [id number] Name: MY JAMA Rep #:[id number] : 1960 64 From: Loretta Rausch MD Referring Dr: James Stephens tatus: REG CLI Location: [facility] Date: 03/31/25 Sex: M C NCS and/or EMG Patient Report Ordering Doctor: James Stephens DATE OF SERVICE: 03/31/25 My presents for electrodiagnostic testing of the right lower limb. He does not report any significant symptoms but requires further evaluation for polyneuropathy. Electrodiagnostic findings: Absent right peroneal and tibial motor responses. Absent right sural and superficial peroneal responses. H?reflexes prolonged bilaterally. Needle EMG testing was performedin the right lower limb. 1+ fibrillations noted [...] Multi Select Codes Neurology Neurology Interp Codes: 72144-00 Musc test done w/n test comp (interp) and 45451-87 Nrv cndj tst 5-6 studies (interp) 03/31/25 1533 D> Date _ Loretta Rausch MD CC: LOADER MAGAZINE GRINDERLulu Santiago; Dr. Loretta Rausch MD; Dr. 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 No evidence of disease today [facility] Work Phone: 1(881) 606-606206-22-2025 Evaluation + Plan note* Assessment & Plan Note - Rachel Brooks MD - 03/14/2025 3:32 PM EDTAssociated Problem(s): Cancer of oral cavity (Multi) No evidence of disease on exam or endoscopy today Follow up in 6 months with new H&N attending since I am leaving, discussed transition and offered encouragement [facility] Work Phone: 1([phone]) 544-655606-22-2025 Miscellaneous Notes* Assessment & Plan Note - Rachel Brooks MD - 03/14/2025 3:32 PM EDTAssociated Problem(s): Open wound of neck This has been stable for several years, no change He has been seen at wound center and I referred him back at last visit * Assessment & Plan Note - Rachel Brooks MD - 03/14/2025 3:32 PM EDT Associated Problem(s): 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 No evidence of disease today * Assessment & Plan Note - Rachel Brooks MD - 03/14/2025 3:32 PM EDT Associated Problem(s): Cancer of oral cavity (Multi) No evidence of disease on exam or endoscopy today Follow up in 6 months with new H&N attending since I am leaving, discussed transition and offered encouragement * Assessment & Plan Note - Rachel Brooks MD - 03/01/2025 11:39 AM EDT Associated Problem(s): Oropharyngeal dysphagia Chronic, moderate to severe He is requiring repeated dilations every 6 months Discussed total laryngectomy (as described above) but has severe wound healing issues and Continue current diet and modifications Weight stable * Assessment & Plan Note - Rachel Brooks MD - 03/01/2025 11:01 AM EDT Associated Problem(s): Hypothyroidism Chronic, acquired Adverse effect of radiation Continue daily synthroid * Assessment & Plan Note - Rachel Brooks MD - 03/01/2025 10:56 AM EDT Associated Problem(s): Tracheostomy dependence (Multi) Discussed that his airway is too restricted to consider trach removal Continue trach care Uses finger to cap but is asking for new speaking valve Will order from [facility] 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 He is going to consider this. * Assessment & Plan Note - Rachel Brooks MD - 03/01/2025 10:56 AM EDT Associated Problem(s): Sensorineural hearing loss (SNHL) of both ears Does well with bilateral BRENNAN Bilateral SNHL - Chemotherapy is a contributing factor documented in this [facility] Work Phone: 1(283) 951-444606-11-2025 Procedure note [facility] Pulmonary Services/Neurology [address] [place] [address] MR#: [id number] Acct: [id number] Name: MY JAMA Rep #:[id number] : 1960 64 From: Loretta Rausch MD Referring Dr: James Stephens tatus: REG CLI Location: [facility] Date: 03/03/25 Sex: M C NCS and/or [...] reduced conduction velocities. Borderline prolonged median ulnar F?waves.Sensory responses were not obtainable. Needle EMG examination was performed in the upper limbs. Decreased recruitment pattern was noted in the first dorsal interosseous bilaterally and in the right triceps. Electrodiagnostic impression: This is an abnormal study in the upper limbs 1. Electrodiagnostic findings are suggestive of peripheral polyneuropathy, withmotor and sensory nerve involvement and evidence of axonal loss. Would recommend correlation with the testing of the lower limbs for more accurate polyneuropathy diagnosis. 2. No electrodiagnostic evidence is noted for cervical radiculopathy Multi Select Codes Neurology Neurology Interp Codes: 51664-49 Musc test done w/n test comp (interp) (2) and 33218-33 Nrv cndj test 11-12 studies (interp) 03/03/25 1528 D> Date _ Loretta Rausch MD CC: LOADER MAGAZINE GRINDER-C Sadie Santiago; Dr. Loretta Rausch MD; Dr. James Stephens, DO ~ Date Dictated: 03/03/251518 Date Transcribed: 03/03/251518 Radio Communications Superintendent: AA Signed [facility]06-09-2025 Evaluation + Plan note* Assessment & Plan Note - Rachel Brooks MD - 03/01/2025 11:39 AM EDTAssociated Problem(s): Oropharyngeal dysphagia Chronic, moderate to severe He is requiring repeated dilations every 6 months Discussed total laryngectomy (as described above) but has severe wound healing issues and Continue current diet and modifications Weight stable [facility] Work Phone: 1([phone]) 875-637206-09-2025 Evaluation + Plan note* Assessment & Plan Note - Rachel Brooks MD - 03/01/2025 11:01 AM EDTAssociated Problem(s): Hypothyroidism Chronic, acquired Adverse effect of radiation Continue daily synthroid [facility] Work Phone: 1([phone]) 221-828206-09-2025 Evaluation + Plan note* Assessment & Plan Note - Rachel Brooks MD - 03/01/2025 10:56 AM EDTAssociated Problem(s): Tracheostomy dependence (Multi) Discussed that his airway is too restricted to consider trach removal Continue trach care Uses finger to cap but is asking for new speaking valve Will order from [place] 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 He is going to consider this. [facility] Work Phone: 1([phone]) 365-966906-09-2025 Evaluation + Plan note* Assessment & Plan Note - Rachel Brooks MD - 03/01/2025 10:56 AM EDTAssociated Problem(s): Sensorineural hearing loss (SNHL) of both ears Does well with bilateral BRENNAN Bilateral SNHL - Chemotherapy is a contributing factor [facility] Work Phone: [phone]) 387-326906-09-2025 History of Present illness Narrative* Rachel Brooks MD - 03/01/2025 8:30 AM EDT Cancer follow up HPI: My Jama is a 64 y.o. male following up with me today for his [id number] oral cavity SCCa withchin involvement. Last seen 09/15. He has a history of L0L3eH1 oral cavity SCCa with chin involvement s/p [...] moderate. No new concerns today. 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 [facility] Work Phone: 1([phone]) 457-606706-09-2025 Instructions* Patient Instructions* Koki Schneider RN - 03/01/2025 8:[address] Brooks evaluated you today. Your care plan is outlined below: -- Follow up with Dr. Dayami Jha in May. Call [phone] to schedule this appointment. General appointment line please call [phone] For general questions or scheduling issues please call [phone] option #2 For medical questions or surgery scheduling please call [phone] on Mondays, Wednesdays and or [phone] on Tuesdays and Fridays. Please be sure [...] We appreciate your understanding. 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 January 05, 2025 10:58am History of head and neck cancer acute February 02, 2025 9 :28am Esophageal dysphagia chronic February 11, 2025 7:56am [facility] Work Phone: 1([phone]) 115-917204-15-2025 Evaluation note* Diagnosis Onset Date Resolution Status Admit Date Head and neck cancer chronic Apri l 2024 10:58am Lung nodules chronic January 05, 2025 10:58am 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 January 05, 2025 10:58am History of head and neck cancer acute February 02, 2025 9 :28am Esophageal dysphagia chronic February 11, 2025 7:56am Esophageal dysphagia chronic April 15, 2025 7:13am [facility] Work Phone: 1([phone]) 577-144204-09-2025 Radiology Diagnostic study note [facility] Imaging Services [address], [place] [address] Chest WITH Contrast MR#: [id number] Acct: [id number] Name: MY JAMA Rep #: [id number] : 1960 M 64 From: Laney Centeno MD PCP: Sadie Santiago 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 Reading Location: [facility] CC: LOADER MAGAZINE GRINDERLulu Santiago; Dr. Quincy Simpson MD ~ Radio Communications Superintendent: Signed [facility]03-28-2025 Procedure note [facility] Speech Pathology [address] [place] [address] Modified Barium Swallow Study MR#: [id number] Acct: [id number] Name: MY JAMA Rep #:[id number] : 1960 64 From: Latosha Verma CCC-BUSINESS OBJECTS DEVELOPER Verbal discussion with patient about POC 12/18/2024: BUSINESS OBJECTS DEVELOPER attempted to call the patient 12/17/[address] POC after interpretation ofMBSS, but pt had phone difficulties. Pt came into the office 12/18/2024 for this discussion. Unfortunately, the patient is not a candidate for participation in [facility] (MDTP) following results ofMBSS revealing silent aspiration. Pt also has contraindications including severe fibrosis, presenceof trach, and esophageal dysphagia. BUSINESS OBJECTS DEVELOPER recommended continuing with therapy 3-4X/week, X3-5 weeks for implementation of oropharyngeal strengthening,jaw ROM, and neck ROM exercises in junction w/ myofascial release. Pt is unable to attend therapy this coming Saturday, and the BUSINESS OBJECTS DEVELOPER is out of the office this upcoming Saturday. Myofascial release is best completed in a more intensive therapy model (BUSINESS OBJECTS DEVELOPER recommends 3-4X/week, X3-5 weeks) to be effective. Pt requested resuming dysphagia therapy after BUSINESS OBJECTS DEVELOPER submits re-evaluation as he wouldonly be able [...] after POintake. Hx of esophageal dysphagiamanaged by raw products director, Dr. Akhtar, s/p EGD w/ botox injection [...] to discuss candidacy for participation in the [facility] (MDTP), an evidence, based, intensive, systematic exercise approach to dysphagia treatment. The patient was interested in the program, so BUSINESS OBJECTS DEVELOPER recommended this MBSS as re-evaluation to determine [...] Result: 8= enters airway/below vocal folds/no effort Clinton Thick Liquid via teaspoon: Result: 3= enters airways/above vocal folds/not ejected Clinton Thick Liquid via teaspoon Trial 2: Result: [...] agree w/ goals & tx plan. (Called daughterRox, w/ results of evaluation.) Status Active ST Patient: Active Contact Information [facility] Speech Therapy:: Latosha Boyer M.A. CCC-BUSINESS OBJECTS DEVELOPER? Speech-Language Pathologist?? [facility] [address] [place] [address]? [email or web address]?? [phone] 12/17/24 1628 Chuyita CCC-BUSINESS OBJECTS DEVELOPER> Date/Time Latosha Boyer M.A. CCC-BUSINESS OBJECTS DEVELOPER Co-Signature Required for all Medicare patients Date/Time Co-Signature CC: ~ [facility]01-29-2025 Evaluation note* Diagnosis Onset Date Resolution Status Admit Date Esophageal dysphagia chronic Aquiles glory 2024 5:27am Head and neck cancer chronic Apri l 2024 10:58am Lung nodules chronic January 05, 2025 10:58am Regional lymph node metastasis present chronic January 05, 025 10:58am [facility] Work Phone: 1([phone]) [phone] [facility] Medical Records Department [address] [place] [address] History Physical Exam 10/21/24 0708 MR#: [id number] Acct: [id number] Name: MY JAMA Rep #: [id number] : 1960 64 From: Elliott Friend DO PCP: YARI Santillan Status:REG [facility] Location: AC10-1 HPI - General General Date of Admission: 10/21/24 Date of Service: 10/21/24 Chief Complaint: dysphagia HPI Narrative MY JAMA, is a 64 M who presents for esophageal dilation [facility] 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 Underwent radiation with concurrent carboplatin for head/neck cancer. At follow up it was noted he has dysphagia. ? Modified Barium 04.13.22 moderate oropharyngeal dysphagia, mild esophageal dysphasia. ? Modified Barium 06.15.22 moderate- severe oropharyngeal phase dysphagia, puree texture. ? Modified Barium 08.05.23 severe oropharyngeal phase dysphagia, recommend puree texture. High risk for aspiration *I established 08.30.23 he has had a tracheostomy [...] forceps for evaluation of eosinophilic esophagitis. OV 02.10. pt reports continued difficulty swallowing. EGD 02.20.24 The nasopharynx and oropharynx are abnormal. Benign-appearing esophageal stenosis. Dilated. Injected with botulinum toxin. No gross lesions in the entire stomach. No gross lesions in the duodenal bulb. No specimens collected. Modified Barium Swallow .24 Severe oropharyngeal dysphagia OV 24 pt reports continued difficulty swallowing, denies other [...] proximal esophagus with dilation up to 42 Kazakh savory dilator. He did well up until a month ago where he had a worsening swallowing. He will undergo repeat upper endoscopy with Botox injection and dilation of the esophagus. [facility] Medical History Wears hearing aid [...] Unknown Rx tablet nyst (more content not included)...[facility] Evaluation note* Diagnosis Onset Date Resolution Status Admit Date Head and neck cancer chronic Dece mber 2023 1:32pm Lung nodules chronic August 1:32pm Regional lymph node metastasis present chronic August 1:32pm Right upper lobe pulmonary nodule acute September 15, 2 024 8:44am Head and neck cancer chronic 2024 11:59am Lung nodules chronic September 28, 2024 11:59am Regional lymph node metastasis present chronic September 28, 2024 11:59am Esophageal dysphagia chronic 2024 5:27am [facility] Work Phone: 1([phone]) [phone] Evaluation + Plan note* Assessment & Plan Note - Rachel Brooks MD - 08/31/2024 9:59 AM ESTAssociated Problem(s): Open wound of neck Referral back to wound center [facility] Work Phone: [phone]) 151-981312-09-2024 Evaluation + Plan note* Assessment & Plan Note - Rachel Brooks MD - 08/31/2024 9:59 AM ESTAssociated Problem(s): 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) No evidence of disease today [facility] Work Phone: [phone] 522-334412-09-2024 Evaluation + Plan note* Assessment & Plan Note - Rachel Brooks MD - 08/31/2024 9:59 AM ESTAssociated Problem(s): Cancer of oral cavity (Multi) No evidence of disease on exam or endoscopy today Follow up in 6 months [facility] Work Phone: [phone]) 230-235712-09-2024 Evaluation + Plan note* Assessment & Plan [...] Continue current diet and modifications Weight stable [facility] Work Phone: 1([phone]) 181-814412-09-2024 Miscellaneous Notes* Assessment & Plan Note - [...] is a contributing factor documented [facility] Work Phone: [phone]) 598-520812-09-2024 Evaluation + Plan note* Assessment & Plan Note - Rachel Brooks MD - 08/31/2024 9:58 AM ESTAssociated Problem(s): Hypothyroidism Chronic, acquired Adverse effect of radiation Continue daily synthroid [facility] Work Phone: 1([phone]) 327-518912-09-2024 Evaluation + Plan note* Assessment & Plan Note - Rachel Brooks MD - 08/31/2024 9:58 AM ESTAssociated Problem(s): Tracheostomy dependence (Multi) Discussed that his airway is too restricted to consider trach removal Continue trach care Uses finger to cap when speaking has difficulty even with speaking valve [facility] Work Phone: [phone]) 831-519312-09-2024 Evaluation + Plan note* Assessment & Plan Note - Rachel Brooks MD - 08/31/2024 9:57 AM ESTAssociated Problem(s): Sensorineural hearing loss (SNHL) of both ears Good response to BRENNAN - wearing them today and doing well Bilateral SNHL Chemotherapy is a contributing factor [facility] Work Phone: [phone]) 204-752412-09-2024 History of Present illness Narrative* Rachel Brooks MD - 08/31/2024 9:00 AM EST Cancer follow up HPI: My Jama is a 64 y.o. 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 Last seen 04/15. Continues with Amber MAGAÑAT. Is no longer capping as much. Reports it is harder for him to breath when he caps it. Wound has remained open in the left neck despite yrs of wound care so he stopped seeing them. He has a history of V8Y7uH8 oral cavity SCCa with chin involvement s/p [...] SNHL kizzy in high freq. History: Dx1: IvJ3gT0 left neck (unknown primary) 2018 Dx2: A3S7sT7 SCCa of the oral cavity 2020 Dx3: [...] no lymphadenopathy 09/12: Oral cavity biopsy at [facility] +SCCa 10/14: PET FDG avid oral cavity [...] normal; left auricle normal; Ear comments: Bilateral BRENANN Nose External Nose: nares patent bilaterally; external [...] exam, discussion and plan. documented in this [facility] Work Phone: 1([phone]) 425-229812-09-2024 Instructions* Patient Instructions* Koki Schneider RN - 08/31/2024 9:[address] Brooks evaluated you today. Your care plan is outlined below: -- see wound care -- Follow up with Dr. Brooks in 6 mo. This appointment was scheduled at the end of your visit today. If you need to reschedule, please call the office at [phone]. Please keep in mind that last minute cancellations often result in delayed follow-up appointments. General appointment line please call [phone] For general questions or scheduling issues please call [phone] option #2 For medical questions or surgery scheduling please call [phone] on Mondays, Wednesdays and or [phone] on Tuesdays and Fridays. Please be sure [...] We appreciate your understanding. 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 Medical History: The pt is a 64-year-old male diagnosed with clinical stage NOREEN (cTx cN2b M0) [id number] SCC of unknown primary with left neck [...] was thigh free flap and had complex neckclosure with split thickness skin graft. Trach was removed following surgery on 12/05/2021 with the trach re-inserted due to difficulty breathing when lying f lat. Pt has followed with OP ST during and after radiation treatment. Most recent MBSS 08/15/23 recommended moist puree textures / thin liquids with strictaspiration precautions and GI consult. Of note, he participated in myofascial release in junction with oropharyngeal strengthening and neck ROM e xercises from08/2023-10/2023 with improvements in swallowing, including advancing diet [...] is planned for annual MBSS to re-assess sw allow function, aspiration risk s/p chemoradiation for cancer [...] Result: 3= enters airways/above vocal folds/not ejected Clinton Thick Liquid via small single sip: cup: [...] Bolus head in pyriforms Soft Palate Elevation: Trace column of contrast/air between soft palate and pharyngeal wall Laryngeal [...] structures Esophageal Phase Esophageal Clearance: Esophageal retention (trace retention in UES, complete clearance during esophageal screens (honey and sequential thin 2)) Diagnosis/Impression Diagnosis: Severe oropharyngeal dysphagia R13.12 Impression: The oral phase is primarily marked by... -Delayed initiation of tongue motion for AP transport. -Decreased bolus control w/ loss of <1/2 the bolus to the pyriforms prior to swallow onset. -Did not assess mastication as he is not appropriate for solid trials due to deficits in pharyngealmotility, edentulous status, and bolus control. The pharyngeal phase is primarily marked by... -Severely decreased tongue base retraction, pharyngeal stripping wave (minimal to no movement), andUES opening/duration resulting in moderate pharyngeal residues requiring 3-4 swallows to mostly clear. -Decreased airway closure due to minimal anterior hyoid excursion and decreased laryngeal elevation. -Consistent laryngeal penetration across all consistencies that does not fully eject after the swallow. Silent and overt s/s of aspiration observed w/ thin liquids consumed sequentially. Cough and re-swallow is somewhat effective in decreasing aspiration risk. The patient must nourish/hydrate via thin liquids and liquidized purees due to poor pharyngeal motility. BUSINESS OBJECTS DEVELOPER recommends using multiple swallows w/ cough and re-swallow immediately following sips (single or sequential). Recommendations Diet: Puree Textures (Finely blended, liquidized purees) and Thin Liquids Comment: Frequent oral care, Cough and re-swallow after each sip Compensatory Strategies: Small Bites, Multiple Swallows, Alternate bites/solids and sips/liquids, Sitting upright and Remain sitting upright for 30 minutes after PO intake Recommend Repeat Modified Barium Swallow: Yes Comment: Repeat MBS study in 6-12 months to monitor swallow function as the patient is atrisk for worsening dysphagia and aspiration risk s/p chemoradiation treatment. Need for Skilled Speech Therapy Services: Yes Comment: Continue with current OP ST POC for oropharyngeal strengthening and neck ROM exercises in junction w/ myofascial release. Education Completed: 1. Described result of evaluation. Status Active ST Patient: Active Contact Information [facility] Speech Therapy:: Latosha Boyer M.A. CCC-BUSINESS OBJECTS DEVELOPER? Speech-Language Pathologist?? [facility] [address] [place] [address]? [email or web address]?? [phone] 06/24/24 1528 [address] CCC-BUSINESS OBJECTS DEVELOPER> Date/Time Latosha Boyer M.A. CCC-BUSINESS OBJECTS DEVELOPER Co-Signature Required for all Medicare patients Date/Time Co-Signature CC: ~ [facility]07-22-2024 Evaluation + Plan note* Assessment & Plan Note - Rachel Brooks MD - 04/13/2024 2:34 PM EDTAssociated Problem(s): Tracheostomy dependence (Multi) Discussed that his airway is too restricted to consider trach removal Continue trach care Can use speaking valve during day [facility] Work Phone: 1(132) [phone] Miscellaneous Notes* Assessment & Plan Note - [...] is a contributing factor [facility] Work [facility]: 1([phone]) 433-476307-22-2024 Evaluation + Plan note* Assessment & Plan Note - Rachel Brooks MD - 04/13/2024 2:33 PM EDTAssociated Problem(s): 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 Akhtar 02/13 Continue current diet and modifications Weight stable [facility] Work Phone: 1([phone]) 931-503007-22-2024 Evaluation + Plan note* Assessment & Plan Note - Rcahel Brooks MD - 04/13/2024 2:32 PM EDTAssociated Problem(s): Hypothyroidism Chronic, acquired Adverse effect of radiation Continue daily synthroid T [facility] Work Phone: 1(453) 159-317907-22-2024 Evaluation + Plan note* Assessment & Plan Note - Rachel Brooks MD - 04/13/2024 2:31 PM EDTAssociated Problem(s): Sensorineural hearing loss (SNHL) of both ears Reviewed audiogram obtained today Has BRENNAN and is using these Chemotherapy is a contributing factor T [facility] Work Phone: 1([phone]) 498-466507-22-2024 History of Present illness Narrative* Rachel Brooks MD - 04/13/2024 1:45 PM EDT Cancer follow up HPI: My Jama is a 63 y.o. male following up with me today for follow up of his T7O2gR5 oral cavity SCCa with chin involvement. Last seen 02/13. Continues with Amber SCOTT caps during day but he forgot it today. Wound has remained open in the left neck despite yrs of wound care. He has a history of C7S7gG7 oral cavity SCCa with chin involvement s/p [...] SNHL kizzy in high freq. History: Dx1: IrW2rP5 left neck (unknown primary) 2018 Dx2: J4K4nH1 SCCa of the oral cavity 2020 Dx3: [...] no lymphadenopathy 09/12: Oral cavity biopsy at [facility] +SCCa 10/14: PET FDG avid oral cavity [...] exam, discussion and plan. 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 Akhtar since it's very hard for him to get to [place] Seeing Dr. Akhtar on Saturday He will likely need another esoph dilation Has failed MBS but is tolerating po without PNA and does not want PEG T [facility] Work Phone: 1([phone]) 381-472705-13-2024 Miscellaneous Notes* Assessment & Plan Note - [...] very hard for him to get to [place] Seeing Dr. Akhtar on Saturday He will [...] to follow with audiology [facility] Work Phone: 1(885) 541-569505-13-2024 Evaluation + Plan note* Assessment & Plan Note - Rachel Brooks MD - 02/03/2024 9:15 AM EDTAssociated Problem(s): Hypothyroidism Acquired hypothyroidism Continue daily synthroid [facility] Work Phone: 1([phone]) 457-508005-13-2024 Evaluation + Plan note* Assessment & Plan Note - Rachel Brooks MD - 02/03/2024 9:15 AM EDTAssociated Problem(s): Sensorineural hearing loss (SNHL) of both ears BRENNAN check today, doing well Continue to follow with audiology [facility] Work Phone: 1([phone]) 229-468905-13-2024 History of Present illness Narrative* Rachel Brooks MD - 02/03/2024 8:45 AM EDT Cancer follow up TSH: Chest: HPI: My Jama is a 63 y.o. male following up with me today for follow up of his X4N3bI6 oral cavity SCCa with chin involvement. Last seen 09/14. He continues to be followed at the [place] wound clinic for his left neck chronic skin wound. Continues with Amber SCOTT caps during day. Wound has remained open in the left neck. He has a history of B8X6kK3 oral cavity SCCa with chin involvement s/p [...] Dr. Soto (rad onc) today. History: Dx1: DbC3mC0 left neck (unknown primary) 2018 Dx2: U6Q6mQ8 SCCa of the oral cavity 2020 Dx3: [...] no lymphadenopathy 09/12: Oral cavity biopsy at [facility] +SCCa 10/14: PET FDG avid oral cavity [...] Started chemoradiation therapy 12/18: Trach open #4 4/8/22: Urgent add on - trach upsized to [...] size: 6 mm; Tracheostomy tube type: shiley; Passy-Yunior speaking valve present; Neck comments: Superficial left [...] very hard for him to get to [place] Seeing Dr. Akhtar on Saturday He will [...] exam, discussion and plan. [facility] Work Phone: 1([phone]) [phone] Procedure [facility] 09-03-2023 Procedure [facility]12-11-2023 Evaluation + Plan note* Assessment & Plan Note - Rachel Brooks MD - 09/02/2023 11:13 PM EST Associated Problem(s): Cancer of oral cavity (CMS/HCC) No evidence of recurrence Adverse effects of treatment including dysphagia Remains trach/PEG dependent Has chronic left neck wound Follow up in 3-4 months [facility] Work Phone: 1([phone]) [phone] Miscellaneous Notes* Assessment & Plan Note - [...] is inconvenient to him [facility] Work Phone: 1([phone]) [phone] Evaluation + Plan note* Assessment & Plan Note - Rachel Brooks MD - 09/02/2023 11:12 PM ESTAssociated Problem(s): Hypothyroidism Needs updated TSH [facility] Work Phone: 1([phone]) [phone] Evaluation + Plan note* Assessment & Plan [...] in [place] which is inconvenient to him [facility] Work Phone: [phone] History of Present illness Narrative* Rachel Brokos MD - 09/02/2023 1:30 PM EST Cancer follow up TSH: Due today Chest: Due today HPI: My Jama is a 63 y.o. male following up with me today for follow up of his I6Y6rU1 oral cavity SCCa with chin involvement. Last seen 03/15. He continues to be followed at the [place] wound clinic for his left neck chronic skin wound. Continues with Amber XLT, caps during day. Wound has remained open in the left neck. He has a history of R2U1kK3 oral cavity SCCa with chin involvement s/p [...] speaks with his speaking valve. History: Dx1: YhI8jT0 left neck (unknown primary) 2018 Dx2: M6B9nH1 SCCa of the oral cavity 202004/28/18: +odynophagia, [...] no lymphadenopathy 09/12: Oral cavity biopsy at [facility] +SCCa 10/14: PET FDG avid oral cavity [...] size: 6 mm; Tracheostomy tube type: shiley; Passy-Yunior speaking valve present; Neck comments: Superficial left [...] exam, discussion and plan. documented in this [facility] Work Phone: [phone]) [phone] Instructions* Name Dates Details Follow up in 4-6 months Indication:Hypertension Start:22-Jul-2023 Instruction Type:Provider Instructions for Treatment Patient Instructions Indication:BMI 20.0-20.9, adult Start:22-Jul-2023 Instruction Type:Provider Instructions for Treatment How to Access Health Informa tion Online using Patient Portal and 3rd [employer] Apps Indication:BMI 20.0-20.9, adult Start:22-Jul-2023 Instruction Type:Patient Education Patient Instructions Indication:Tobacco abuse, in remission Start:16-Jan-2023 Instruction Type:Provider Instructions for Treatment How to Access Health Informa tion Online using Patient Portal and 3rd [employer] Apps Indication:Tobacco abuse, in remission Start:16-Jan-2023 Instruction Type:Patient Education Patient Instructions Indication:BMI less than 19,adult Start:15-Feb-2022 Instruction Type:Provider Instructions for Treatment How to Access Health Informa tion Online using Patient Portal and 3rd [employer] Apps Indication:BMI less than 19,adult Start:15-Feb-2022 Instruction Type:Patient Education Patient Instructions Indication:Hypothyroid Start:15-Dec-2021 Instruction Type:Provider Instructions for Treatment How to Access Health Informa tion Online using Patient Portal and 3rd [employer] Apps Indication:Hypothyroid Start:15-Dec-2021 Instruction Type:Patient Education Patient Instructions Indication:Smoker Start:15-Aug-2021 Instruction Type:Provider Instructions for Treatment How to Access Health Informa tion Online using Patient Portal and 3rd [employer] Apps Indication:Smoker Start:15-Aug-2021 Instruction Type:Patient Education Patient Instructions Indication:BMI 20.0-20.9, adult Start:26-Jul-2021 Instruction Type:Provider Instructions for Treatment How to Access Health Informa tion Online using Patient Portal and 3rd [employer] Apps Indication:BMI 20.0-20.9, adult Start:26-Jul-2021 Instruction Type:Patient Education Patient Instructions Indication:Dry mouth Start:13-Mar-2021 Instruction Type:Provider Instructions for Treatment How to Access Health Informa tion Online using Patient Portal and 3rd [employer] Apps Indication:Dry mouth Start:13-Mar-2021 Instruction Type:Patient Education Patient Instructions Indication:B12 nutritional deficiency Start:02-Dec-2020 Instruction Type:Provider Instructions for Treatment How to Access Health Informa tion Online using Patient Portal and 3rd [employer] Apps Indication:Smoker Start:02-Dec-2020 Instruction Type:Patient Education Patient [...] Internal Medicine; [facility] Work Phone: 1([phone]) 918-847007-19-2023 Progress note [facility] April 10, 2023 10:05am Note Date/Time April 10, 2023 10:0 5am [facility] [address] [place] [address] Progress Note - Wound Care 04/10/23 1002 MR#: [id number] Acct: [id number] Name: MY JAMA Rep #:[id number] : 1960 62 From: Joya Galvez NP 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 Coordination / Balance: zhhrzd-un-bzir test normal Speech: speech abnormal Gait (Neuro): [...] Recorded Date Recorded By Document 03/27/23 09:11 [facility] [id number] 03/27/23 09:17 [facility] Document 04/03/23 08:38 [facility] [id number] 04/03/23 08:45 [facility] Document 04/10/23 08:36 [facility] [id number] 04/10/23 08:41 [facility] 03/27/23 04/03/23 04/10/23 09:11 08:38 08:36 - Today's Visit Information Type of service Follow-up Visit Follow-up Visit Follow-up Visit (Physician/PHYSICIST [facility] (Physician/PHYSICIST [facility] (Physician/PHYSICIST [facility] [facility] ) ) ) Arrival Mode Ambulatory Ambulatory [...] Recorded Date Recorded By Document 03/27/23 09:11 [facility] [id number] 03/27/23 09:17 [facility] Document 04/03/23 08:38 [facility] [id number] 04/03/23 08:45 [facility] Document 04/10/23 08:36 [facility] [id number] 04/10/23 08:41 [facility] 03/27/23 04/03/23 04/10/23 09:11 08:38 08:36 [...] Attached -Granulation Amt Small (1-33%) -Granulation Quality [place] -Slough/Fibrin Yes -Necrosis Amt Large (67-100%) -Necrotic [...] Date Recorded By Document 03/27/23 09:34 MW [id number] 03/27/23 09:36 MW Document 04/03/23 08:56 MW [id number] 04/03/23 08:59 MW Document 04/10/23 08:48 MW [id number] 04/10/23 08:51 MW 03/27/23 04/03/23 04/10/23 09:34 [...] Date Recorded By Document 03/27/23 09:40 MW [id number] 03/27/23 09:40 MW Document 04/03/23 08:59 MW [id number] 04/03/23 09:00 MW Document 04/10/23 08:51 MW [id number] 04/10/23 08:52 MW 03/27/23 04/03/23 04/10/23 09:40 [...] 1005 <Electronically signed by Joya Galvez NP LOADER MAGAZINE GRINDER-C> Cosigner Signature (if applicable): CC: ~ Signed [facility] Work Phone: 1(238) 689-603507-12-2023 Progress note Author Joya Galvez [facility] April 03, 2023 10:07am Note Date/Time April 03, 2023 9:51 am [facility] [address] [place] [address] Progress Note - Wound Care 04/03/23 0950 MR#: [id number] Acct: [id number] Name: MY JAMA Rep #:[id number] : 1960 62 From: Joya Galvez NP, [...] of first interosseous muscles. Coordination / Balance: aavkij-wg-xkrm test normal Speech: speech abnormal Gait (Neuro): [...] Recorded Date Recorded By Document 03/27/23 09:11 [facility] [id number] 03/27/23 09:17 [facility] Document 04/03/23 08:38 [facility] [id number] 04/03/23 08:45 [facility] 03/27/23 04/03/23 09:11 08:38 - Today's Visit Information Type of service Follow-up Visit Follow-up Visit (Physician/PHYSICIST [facility] (Physician/PHYSICIST [facility] ) ) Arrival Mode Ambulatory Ambulatory Transfer [...] Recorded Date Recorded By Document 03/27/23 09:11 [facility] [id number] 03/27/23 09:17 [facility] Document 04/03/23 08:38 [facility] [id number] 04/03/23 08:45 [facility] 03/27/23 04/03/23 09:11 08:38 Wound Center [...] Attached -Granulation Amt Small (1-33%) -Granulation Quality [place] -Slough/Fibrin Yes -Necrosis Amt Large (67-100%) -Necrotic [...] Date Recorded By Document 03/27/23 09:34 MW [id number] 03/27/23 09:36 MW Document 04/03/23 08:56 MW [id number] 04/03/23 08:59 MW 03/27/23 04/03/23 09:34 08:56 [...] Date Recorded By Document 03/27/23 09:40 MW [id number] 03/27/23 09:40 MW Document 04/03/23 08:59 MW [id number] 04/03/23 09:00 MW 03/27/23 04/03/23 09:40 08:59 [...] 1007 <Electronically signed by Joya Galvez NP [employer] GR[employer]ER-C> Cosigner Signature (if applicable): CC: ~ Signed [facility] Work Phone: 1(780) 999-202707-05-2023 Progress note Author Joya Galvez [facility] March 27, 2023 12:15pm Note Date/Time March 27, 2023 12:15 pm [facility] [address] [place] [id number] Progress Note - Wound Care 03/27/23 1212 MR#: [id number] Acct: [id number] Name: MY JAMA Rep #:[id number] : 1960 62 From: Joya Galvez NP 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 Coordination / Balance: heljjb-ar-xkuz test normal Speech: speech abnormal Gait (Neuro): [...] Recorded Date Recorded By Document 03/27/23 09:11 [facility] [id number] 03/27/23 09:17 [facility] 03/27/23 09:11 WC - Today's Visit Information Type of service Follow-up Visit (Physician/PHYSICIST [facility] ) Arrival Mode Ambulatory Transfer Assistance None [...] Recorded Date Recorded By Document 03/27/23 09:11 [facility] [id number] 03/27/23 09:17 [facility] 03/27/23 09:11 Wound Center Nurse 1 [...] Date Recorded By Document 03/27/23 09:34 MW [id number] 03/27/23 09:36 MW 03/27/23 09:34 Wound Center [...] Date Recorded By Document 03/27/23 09:40 MW [id number] 03/27/23 09:40 MW 03/27/23 09:40 Wound Care [...] 1215 <Electronically signed by Joya Galvez NP [employer] GR[employer]ER-C> Cosigner Signature (if applicable): CC: ~ Signed [facility] Work Phone: 1(688) 948-973906-28-2023 Progress note Author Joya Galvez [facility] March 20, 2023 11:22am Note Date/Time March 20, 2023 11:2 2am [facility] [address] [place] [address] Progress Note - Wound Care 03/20/23 1119 MR#: [id number] Acct: [id number] Name: MY JAMA Rep #:[id number] : 1960 62 From: Joya Galvez NP 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 Coordination / Balance: ydvzgy-sb-ysmu test normal Speech: speech abnormal Gait (Neuro): [...] Date Recorded By Document 02/27/23 10:23 [place] [id number] 02/27/23 10:25 [place] Document 03/06/23 11:03 [facility] [id number] 03/06/23 11:07 [facility] Document 03/13/23 09:28 [facility] [id number] 03/13/23 09:33 [facility] Document 03/20/23 09:07 [facility] [id number] 03/20/23 09:08 [facility] 02/27/23 03/06/23 03/13/23 10:23 11:03 09:28 WC - Today's Visit Information Type of service Follow-up Visit Follow-up Visit Follow-up Visit (Physician/PHYSICIST [facility] (Physician/PHYSICIST [facility] (Physician/PHYSICIST [facility] ) ) ) Arrival Mode Ambulatory Ambulatory [...] Pain Free? Yes Yes Yes 03/20/23 09:07 WC - Today's Visit Information Type of service Follow-up Visit (Physician/PHYSICIST [facility] ) Arrival Mode Ambulatory Transfer Assistance None [...] Recorded Date Recorded By Document 02/27/23 10:23 [place] [id number] 02/27/23 10:25 [place] Document 03/06/23 11:03 [facility] [id number] 03/06/23 11:07 [facility] Document 03/13/23 09:28 [facility] [id number] 03/13/23 09:33 [facility] Document 03/20/23 09:07 [facility] [id number] 03/20/23 09:08 [facility] 02/27/23 03/06/23 03/13/23 10:23 11:03 09:28 [...] (1-33%) Small (1-33%) Small (1-33%) -Granulation Quality Pale,[place] Red [place] -Slough/Fibrin Yes Yes Yes -Necrosis Amt Large [...] Intact -Granulation Amt Medium (34-66%) -Granulation Quality [place] -Slough/Fibrin Yes -Necrosis Amt Medium (34-66%) -Necrotic [...] 02/27/23 09:27 MW Document 03/06/23 11:10 MW [id number] 03/06/23 11:25 MW Document 03/13/23 09:49 MW [id number] 03/13/23 09:50 MW 02/27/23 03/06/23 03/13/23 09:27 [...] 02/27/23 09:31 MW Document 03/06/23 11:20 MW [id number] 03/06/23 11:29 MW Document 03/13/23 09:55 MW [id number] 03/13/23 09:56 MW Document 03/20/23 11:08 [place] [id number] 03/20/23 11:09 [place] 02/27/23 03/06/23 03/13/23 09:30 [...] 1122 <Electronically signed by Joya Galvez NP [employer]-C> Cosigner Signature (if applicable): CC: ~ Signed [facility] Work Phone: 1(295) 152-575006-21-2023 Progress note Author Joya Galvez [facility] March 13, 2023 11:25am Note Date/Time March 13, 2023 11:2 5am [facility] [address] [place] [address] Progress Note - Wound Care 03/13/23 1123 MR#: [id number] Acct: [id number] Name: MY JAMA Rep #:[id number] : 1960 62 From: Joya Galvez NP [employer]-C PCP: Kya Gonzalez LO[employer] GR[employer]ER-C Status:REG RCR Location: History of Present Illness [...] of first interosseous muscles. Coordination / Balance: atcxex-qp-zsjy test normal Speech: speech abnormal Gait (Neuro): [...] Recorded Date Recorded By Document 02/27/23 10:23 [place] [id number] 02/27/23 10:25 [place] Document 03/06/23 11:03 [facility] [id number] 03/06/23 11:07 [facility] Document 03/13/23 09:28 [facility] [id number] 03/13/23 09:33 [facility] 02/27/23 03/06/23 03/13/23 10:23 11:03 09:28 - Today's Visit Information Type of service Follow-up Visit Follow-up Visit Follow-up Visit (Physician/PHYSICIST [facility] (Physician/PHYSICIST [facility] (Physician/PHYSICIST [facility] ) ) ) Arrival Mode Ambulatory Ambulatory [...] Recorded Date Recorded By Document 02/27/23 10:23 [place] [id number] 02/27/23 10:25 [place] Document 03/06/23 11:03 [facility] [id number] 03/06/23 11:07 [facility] Document 03/13/23 09:28 [facility] [id number] 03/13/23 09:33 [facility] 02/27/23 03/06/23 03/13/23 10:23 11:03 09:28 [...] (1-33%) Small (1-33%) Small (1-33%) -Granulation Quality Pale,[place] Red [place] -Slough/Fibrin Yes Yes Yes -Necrosis Amt Large [...] 02/27/23 09:27 MW Document 03/06/23 11:10 MW [id number] 03/06/23 11:25 MW Document 03/13/23 09:49 MW [id number] 03/13/23 09:50 MW 02/27/23 03/06/23 03/13/23 09:27 [...] 02/27/23 09:31 MW Document 03/06/23 11:20 MW [id number] 03/06/23 11:29 MW Document 03/13/23 09:55 MW [id number] 03/13/23 09:56 MW 02/27/23 03/06/23 03/13/23 09:30 [...] 1125 <Electronically signed by Joya Galvez NP [employer]-C> Cosigner Signature (if applicable): CC: ~ Signed [facility] Work Phone: 1(876) 719-786906-14-2023 Progress note Author Joya Galvez [facility] March 06, 2023 11:39am Note Date/Time March 06, 2023 11:3 9am [facility] [address] [place] [address] Progress Note - Wound Care 03/06/23 1135 MR#: [id number] Acct: [id number] Name: MY JAMA Rep #:[id number] : 1960 62 From: Joya Galvez NP 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 Coordination / Balance: upkula-kj-jwug test normal Speech: speech abnormal Gait (Neuro): [...] Recorded Date Recorded By Document 02/27/23 10:23 [place] [id number] 02/27/23 10:25 [place] Document 03/06/23 11:03 [facility] [id number] 03/06/23 11:07 [facility] 02/27/23 03/06/23 10:23 11:03 - Today's Visit Information Type of service Follow-up Visit Follow-up Visit (Physician/PHYSICIST [facility] (Physician/PHYSICIST [facility] ) ) Arrival Mode Ambulatory Ambulatory Transfer [...] Recorded Date Recorded By Document 02/27/23 10:23 [place] [id number] 02/27/23 10:25 [place] Document 03/06/23 11:03 [facility] [id number] 03/06/23 11:07 [facility] 02/27/23 03/06/23 10:23 11:03 Wound Center [...] Amt Small (1-33%) Small (1-33%) -Granulation Quality Pale,[place] Red -Slough/Fibrin Yes Yes -Necrosis Amt Large (67-100%) Large (67-100%) -Necrotic Tissue Type Adherent Slough Adherent Slough -Structure Exposed N/A -Texture (Candace-wound Skin Appearance) No Abnormality, Assessed, Assessed Scarring -Moisture (Acndace-wound Skin Appearance) No Abnormality, Assessed Assessed -Color [...] 02/27/23 09:27 MW Document 03/06/23 11:10 MW [id number] 03/06/23 11:25 MW 02/27/23 03/06/23 09:27 11:10 [...] 02/27/23 09:31 MW Document 03/06/23 11:20 MW [id number] 03/06/23 11:29 MW 02/27/23 03/06/23 09:30 11:20 [...] 1139 <Electronically signed by Joya Galvez NP [employer]-C> Cosigner Signature (if applicable): CC: ~ Signed [facility] Work Phone: 1(436) 313-668806-07-2023 Progress note Author Joya Galvez [facility] February 27, 2023 10:07am Note Date/Time February 27, 2023 10:05 am [facility] [address] [place] [address] Progress Note - Wound Care 02/27/23 1003 MR#: [id number] Acct: [id number] Name: MY JAMA Rep #:[id number] : 1960 62 From: Joya Galvez NP 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 Coordination / Balance: ihcbzy-cj-znuv test normal Speech: speech abnormal Gait (Neuro): [...] 1007 <Electronically signed by Joya Galvez NP [employer]-C> Cosigner Signature (if applicable): CC: ~ Signed [facility] Work Phone: 1(731) 842-590805-31-2023 Progress note Author Joya Galvez [facility] February 20, 2023 9:05am Note Date/Time February 20, 2023 9:05a [facility] [address] [place] [address] Progress Note - Wound Care 02/20/23 0902 MR#: [id number] Acct: [id number] Name: MY JAMA Rep #:[id number] : 1960 62 From: Joya Galvez NP 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 Coordination / Balance: oqoncf-hl-oydj test normal Speech: speech abnormal Gait (Neuro): [...] Recorded Date Recorded By Document 01/23/23 08:17 [facility] [id number] 01/23/23 08:26 [facility] Document 01/30/23 08:27 [facility] [id number] 01/30/23 08:33 [facility] Document 02/06/23 08:18 [facility] [id number] 02/06/23 08:23 [facility] Document 02/13/23 08:33 [facility] [id number] 02/13/23 08:40 [facility] Document 02/20/23 08:46 MW [id number] 02/20/23 08:49 MW 01/23/23 01/30/23 02/06/23 08:17 08:27 08:18 - Today's Visit Information Type of service Follow-up Visit Follow-up Visit Follow-up Visit (Physician/PHYSICIST [facility] (Physician/PHYSICIST [facility] (Physician/PHYSICIST [facility] ) ) ) Arrival Mode Ambulatory Ambulatory [...] Type of service Follow-up Visit Follow-up Visit (Physician/PHYSICIST [facility] (Physician/PHYSICIST [facility] ) ) Arrival Mode Ambulatory Ambulatory Transfer [...] Recorded Date Recorded By Document 01/23/23 08:17 [facility] [id number] 01/23/23 08:26 [facility] Document 01/30/23 08:27 [facility] [id number] 01/30/23 08:33 [facility] Document 02/06/23 08:18 [facility] [id number] 02/06/23 08:23 [facility] Document 02/13/23 08:33 [facility] [id number] 02/13/23 08:40 [facility] Document 02/20/23 08:46 MW [id number] 02/20/23 08:49 MW 01/23/23 01/30/23 02/06/23 08:17 [...] (1-33%) Medium (34-66%) Small (1-33%) -Granulation Quality [place] Red -Slough/Fibrin Yes Yes Yes -Necrosis Amt [...] Present (0 Small (1-33%) %) -Granulation Quality [place] -Slough/Fibrin Yes Yes -Necrosis Amt Large (67-100%) [...] Date Recorded By Document 01/23/23 08:48 MW [id number] 01/23/23 08:50 MW Document 01/30/23 08:46 MW [id number] 01/30/23 08:47 MW Document 02/06/23 08:39 PL [id number] 02/06/23 08:40 PL Document 02/13/23 08:45 MW [id number] 02/13/23 08:52 MW Document 02/20/23 08:49 MW [id number] 02/20/23 08:55 MW 01/23/23 01/30/23 02/06/23 08:48 [...] Recorded Date Recorded By Document 01/23/23 08:56 [facility] [id number] 01/23/23 08:57 BMF Document 01/30/23 08:47 MW [id number] 01/30/23 08:48 MW Document 02/06/23 08:41 RB [id number] 02/06/23 08:41 RB Document 02/13/23 08:54 MW [id number] 02/13/23 08:54 MW Document 02/20/23 08:55 MW [id number] 02/20/23 08:56 MW 01/23/23 01/30/23 02/06/23 08:56 [...] 0905 <Electronically signed by Joya Galvez NP [employer]-C> Cosigner Signature (if applicable): CC: ~ Signed [facility] Work Phone: 1(413) 582-601705-24-2023 Progress note Author Joya Galvez [facility] February 13, 2023 11:51am Note Date/Time February 13, 2023 11:51 am [facility] [address] [place] [address] [place] [address] Progress Note - Wound Care 02/13/23 1147 MR#: [id number] Acct: [id number] Name: MY JAMA Rep #:[id number] : 1960 62 From: Joya Galvez NP [employer]-C PCP: Kya Gonzalez NP-C Status:REG RCR Location: [...] of first interosseous muscles. Coordination / Balance: mngyec-gd-rljf test normal Speech: speech abnormal Gait (Neuro): [...] Recorded Date Recorded By Document 01/23/23 08:17 [facility] [id number] 01/23/23 08:26 [facility] Document 01/30/23 08:27 [facility] [id number] 01/30/23 08:33 [facility] Document 02/06/23 08:18 [facility] [id number] 02/06/23 08:23 [facility] Document 02/13/23 08:33 [facility] [id number] 02/13/23 08:40 BMF 01/23/23 01/30/23 02/06/23 08:17 08:27 08:18 WC - Today's Visit Information Type of service Follow-up Visit Follow-up Visit Follow-up Visit (Physician/PHYSICIST [facility] (Physician/PHYSICIST [facility] (Physician/PHYSICIST [facility] ) ) ) Arrival Mode Ambulatory Ambulatory [...] Visit Information Type of service Follow-up Visit (Physician/PHYSICIST [facility] ) Arrival Mode Ambulatory Transfer Assistance None [...] Recorded Date Recorded By Document 01/23/23 08:17 [facility] [id number] 01/23/23 08:26 [facility] Document 01/30/23 08:27 [facility] [id number] 01/30/23 08:33 [facility] Document 02/06/23 08:18 [facility] [id number] 02/06/23 08:23 [facility] Document 02/13/23 08:33 [facility] [id number] 02/13/23 08:40 [facility] 01/23/23 01/30/23 02/06/23 08:17 08:27 08:18 [...] (1-33%) Medium (34-66%) Small (1-33%) -Granulation Quality [place] Red -Slough/Fibrin Yes Yes Yes -Necrosis Amt [...] Date Recorded By Document 01/23/23 08:48 MW [id number] 01/23/23 08:50 MW Document 01/30/23 08:46 MW [id number] 01/30/23 08:47 MW Document 02/06/23 08:39 PL [id number] 02/06/23 08:40 PL Document 02/13/23 08:45 MW [id number] 02/13/23 08:52 MW 01/23/23 01/30/23 02/06/23 08:48 [...] Recorded Date Recorded By Document 01/23/23 08:56 [facility] [id number] 01/23/23 08:57 BM Document 01/30/23 08:47 MW [id number] 01/30/23 08:48 MW Document 02/06/23 08:41 RB [id number] 02/06/23 08:41 RB Document 02/13/23 08:54 MW [id number] 02/13/23 08:54 MW 01/23/23 01/30/23 02/06/23 08:56 [...] 1151 <Electronically signed by Joya Galvez NP [employer]-C> Cosigner Signature (if applicable): CC: ~ Signed [facility] Work Phone: 1(713) 777-969505-23-2023 History of Present illness Narrative* Mr. MY JAMA, is a 62 year old male here for a trach change. Last seen 02/12. He continues to be followed at the [place] wound [facility]. Continues with Amber XLT, caps during day. Wound has continued to heal very slowly but is smaller. He comes in today with a new XLT trach for his trach changesince we didn't have one in clinic last month. No other concerns. Overall doing ok. 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 Patient completed adjuvant chemoradiation on 02/06/22. 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 FM-Uwocbxmvtamxlp-[facility]flna [place] [facility] Work Phone: 1(467) 672-418005-17-2023 Progress note Author Joya Galvez [facility] February 06, 2023 8:54am Note Date/Time February 06, 2023 8:54a m [facility] [address] [place] [address] Progress Note - Wound Care 02/06/23 0851 MR#: [id number] Acct: [id number] Name: MY JAMA Rep #:[id number] : 1960 62 From: Joya Galvez NP 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 Coordination / Balance: zlckbo-ut-luxb test normal Speech: speech abnormal Gait (Neuro): [...] Recorded Date Recorded By Document 01/23/23 08:17 [facility] [id number] 01/23/23 08:26 [facility] Document 01/30/23 08:27 [facility] [id number] 01/30/23 08:33 [facility] Document 02/06/23 08:18 [facility] [id number] 02/06/23 08:23 [facility] 01/23/23 01/30/23 02/06/23 08:17 08:27 08:18 - Today's Visit Information Type of service Follow-up Visit Follow-up Visit Follow-up Visit (Physician/PHYSICIST [facility] (Physician/PHYSICIST [facility] (Physician/PHYSICIST [facility] ) ) ) Arrival Mode Ambulatory Ambulatory [...] Recorded Date Recorded By Document 01/23/23 08:17 [facility] [id number] 01/23/23 08:26 BM Document 01/30/23 08:27 [facility] [id number] 01/30/23 08:33 BM Document 02/06/23 08:18 [facility] [id number] 02/06/23 08:23 BMF 01/23/23 01/30/23 02/06/23 08:17 08:27 08:18 [...] (1-33%) Medium (34-66%) Small (1-33%) -Granulation Quality [place] Red -Slough/Fibrin Yes Yes Yes -Necrosis Amt [...] Date Recorded By Document 01/23/23 08:48 MW [id number] 01/23/23 08:50 MW Document 01/30/23 08:46 MW [id number] 01/30/23 08:47 MW Document 02/06/23 08:39 PL [id number] 02/06/23 08:40 PL 01/23/23 01/30/23 02/06/23 08:48 [...] Recorded Date Recorded By Document 01/23/23 08:56 [facility] [id number] 01/23/23 08:57 BMF Document 01/30/23 08:47 MW [id number] 01/30/23 08:48 MW Document 02/06/23 08:41 RB [id number] 02/06/23 08:41 RB 01/23/23 01/30/23 02/06/23 08:56 [...] 0854 <Electronically signed by Joya Galvez NP [employer]-C> Cosigner Signature (if applicable): CC: ~ Signed [facility] Work Phone: 1([phone]) 818-952305-10-2023 Progress note Author Joya Galvez [facility] January 30, 2023 9:56am Note Date/Time January 30, 2023 9:56a m [facility] [address] [place] [address] Progress Note - Wound Care 01/30/23 0953 MR#: [id number] Acct: [id number] Name: MY JAMA Rep #:[id number] : 1960 62 From: Joya Galvez NP [employer]-C PCP: YARI Pardo Status:REG R Location: History of Present Illness Date of [...] of first interosseous muscles. Coordination / Balance: cnpwpz-uz-vzjc test normal Speech: speech abnormal Gait (Neuro): [...] Recorded Date Recorded By Document 01/23/23 08:17 [facility] [id number] 01/23/23 08:26 [facility] Document 01/30/23 08:27 [facility] [id number] 01/30/23 08:33 [facility] 01/23/23 01/30/23 08:17 08:27 - Today's Visit Information Type of service Follow-up Visit Follow-up Visit (Physician/PHYSICIST [facility] (Physician/PHYSICIST [facility] ) ) Arrival Mode Ambulatory Ambulatory Transfer [...] Recorded Date Recorded By Document 01/23/23 08:17 [facility] [id number] 01/23/23 08:26 BMF Document 01/30/23 08:27 BM [id number] 01/30/23 08:33 F 01/23/23 01/30/23 08:17 08:27 Wound Center Nurse [...] Amt Small (1-33%) Medium (34-66%) -Granulation Quality [place] -Slough/Fibrin Yes Yes -Necrosis Amt Large (67-100%) [...] Date Recorded By Document 01/23/23 08:48 MW [id number] 01/23/23 08:50 MW Document 01/30/23 08:46 MW [id number] 01/30/23 08:47 MW 01/23/23 01/30/23 08:48 08:46 [...] Recorded Date Recorded By Document 01/23/23 08:56 [facility] [id number] 01/23/23 08:57 [facility] Document 01/30/23 08:47 MW [id number] 01/30/23 08:48 MW 01/23/23 01/30/23 08:56 08:47 [...] misadventure at the time of the procedure 01/30/2356 <Electronically signed by Joya Galvez NP [employer]-C> Cosigner Signature (if applicable): CC: ~ Signed [facility] Work Phone: 1(532) 903-715905-03-2023 Progress note Author Joya Galvez [facility] January 23, 2023 9:45am Note Date/Time January 23, 2023 9:45am [facility] [address] [place] [address] Progress Note - Wound Care 01/23/2342 MR#: [id number] Acct: [id number] Name: MY JAMA Rep #:[id number] : 1960 62 From: Joya Galvez NP [employer]-C PCP: Kya Gonzalez NP-C Status:REG RCR Location: [...] of first interosseous muscles. Coordination / Balance: ncxoly-bp-jyjy test normal Speech: speech abnormal Gait (Neuro): [...] Start: 01/23/23 08:16 Freq: Status: Active Protocol: DHAVAL.LOWALLISONT Activity Type Activity Date Activity User E-sign Co-sign Detail Recorded Client Recorded Date Recorded By Document 01/23/23 08:17 [facility] [id number] 01/23/23 08:26 [facility] 01/23/23 08:17 - Today's Visit Information Type of service Follow-up Visit (Physician/PHYSICIST [facility] ) Arrival Mode Ambulatory Transfer Assistance None [...] Recorded Date Recorded By Document 01/23/23 08:17 [facility] [id number] 01/23/23 08:26 [facility] 01/23/23 08:17 Wound Center Nurse 1 [...] Attached -Granulation Amt Small (1-33%) -Granulation Quality [place] -Slough/Fibrin Yes -Necrosis Amt Large (67-100%) -Necrotic [...] Date Recorded By Document 01/23/23 08:48 MW [id number] 01/23/23 08:50 MW 01/23/23 08:48 Wound Center [...] Recorded Date Recorded By Document 01/23/23 08:56 [facility] [id number] 01/23/23 08:57 [facility] 01/23/23 08:56 Wound Care Center Nurse [...] 0945 <Electronically signed by Joya Galvez NP [employer]-C> Cosigner Signature (if applicable): CC: ~ Signed [facility] Work Phone: 1(367) [phone] Progress note Author Joya Galvez [facility] January 16, 2023 10:57am Note Date/Time January 16, 2023 10: 43am [facility] [address] [place] [address] Progress Note - Wound Care 01/16/23 1040 MR#: [id number] Acct: [id number] Name: MY JAMA Rep #:[id number] : 1960 62 From: Joya Galvez NP 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 Coordination / Balance: bxfcoa-vy-necz test normal Speech: speech abnormal Gait (Neuro): [...] Date Recorded By Document 12/26/22 08:31 PL [id number] 12/26/22 08:39 PL Document 01/02/23 08:29 JF [id number] 01/02/23 08:33 JF Document 01/09/23 08:38 RB [id number] 01/09/23 08:47 RB Document 01/16/23 08:32 RB [id number] 01/16/23 08:34 RB 12/26/22 01/02/23 01/09/23 08:31 08:29 08:38 - Today's Visit Information Type of service Follow-up Visit Follow-up Visit Follow-up Visit (Physician/PHYSICIST [facility] (Physician/PHYSICIST [facility] (Physician/PHYSICIST [facility] [facility] ) ) ) Arrival Mode Ambulatory Ambulatory [...] Visit Information Type of service Follow-up Visit (Physician/PHYSICIST [facility] ) Arrival Mode Ambulatory Transfer Assistance None [...] Date Recorded By Document 12/26/22 08:31 PL [id number] 12/26/22 08:39 PL Document 01/02/23 08:29 JF [id number] 01/02/23 08:33 JF Document 01/09/23 08:38 RB [id number] 01/09/23 08:47 RB Document 01/16/23 08:32 RB [id number] 01/16/23 08:34 RB 12/26/22 01/02/23 01/09/23 08:31 [...] (34-66%) Medium (34-66%) Medium (34-66%) -Granulation Quality [place] -Slough/Fibrin Yes Yes Yes -Necrosis Amt Medium [...] Attached -Granulation Amt Medium (34-66%) -Granulation Quality [place] -Slough/Fibrin Yes -Necrosis Amt Medium (34-66%) -Necrotic [...] Date Recorded By Document 12/26/22 08:43 MW [id number] 12/26/22 08:45 MW Document 01/02/23 08:47 MW [id number] 01/02/23 08:50 MW Document 01/09/23 08:59 MW [id number] 01/09/23 09:01 MW Document 01/16/23 08:37 MW [id number] 01/16/23 08:40 MW 12/26/22 01/02/23 01/09/23 08:43 [...] Date Recorded By Document 12/26/22 08:49 MW [id number] 12/26/22 08:49 MW Document 01/02/23 08:51 MW [id number] 01/02/23 08:51 MW Document 01/09/23 09:07 MW [id number] 01/09/23 09:08 MW Document 01/16/23 08:40 MW [id number] 01/16/23 08:41 MW 12/26/22 01/02/23 01/09/23 08:49 [...] 1057 <Electronically signed by Joya Galvez NP [employer]-C> Cosigner Signature (if applicable): CC: ~ Signed [facility] Work Phone: 1(281) 227-885504-19-2023 Progress note Author Joya Galvez [facility] January 09, 2023 9:35am Note Date/Time January 09, 2023 9:3 5am [facility] [address] [place] [address] Progress Note - Wound Care 01/09/23 0932 MR#: [id number] Acct: [id number] Name: MY JAMA Rep #:[id number] : 1960 62 From: Joya Galvez NP 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 Coordination / Balance: zjjweb-oz-znnj test normal Speech: speech abnormal Gait (Neuro): [...] Date Recorded By Document 12/26/22 08:31 PL [id number] 12/26/22 08:39 PL Document 01/02/23 08:29 JF [id number] 01/02/23 08:33 JF Document 01/09/23 08:38 RB [id number] 01/09/23 08:47 RB 12/26/22 01/02/23 01/09/23 08:31 08:29 08:38 - Today's Visit Information Type of service Follow-up Visit Follow-up Visit Follow-up Visit (Physician/PHYSICIST [facility] (Physician/PHYSICIST [place] [place] (Physician/PHYSICIST [facility] [place] ) ) ) Arrival Mode Ambulatory Ambulatory [...] Date Recorded By Document 12/26/22 08:31 PL [id number] 12/26/22 08:39 PL Document 01/02/23 08:29 JF [id number] 01/02/23 08:33 JF Document 01/09/23 08:38 RB [id number] 01/09/23 08:47 RB 12/26/22 01/02/23 01/09/23 08:31 [...] (34-66%) Medium (34-66%) Medium (34-66%) -Granulation Quality [place] -Slough/Fibrin Yes Yes Yes -Necrosis Amt Medium [...] Date Recorded By Document 12/26/22 08:43 MW [id number] 12/26/22 08:45 MW Document 01/02/23 08:47 MW [id number] 01/02/23 08:50 MW Document 01/09/23 08:59 MW [id number] 01/09/23 09:01 MW 12/26/22 01/02/23 01/09/23 08:43 [...] Date Recorded By Document 12/26/22 08:49 MW [id number] 12/26/22 08:49 MW Document 01/02/23 08:51 MW [id number] 01/02/23 08:51 MW Document 01/09/23 09:07 MW [id number] 01/09/23 09:08 MW 12/26/22 01/02/23 01/09/23 08:49 [...] 0935 <Electronically signed by Joya Galvez NP [employer]-C> Cosigner Signature (if applicable): CC: ~ Signed [facility] Work Phone: 1(871) 501-257404-12-2023 Progress note Author Joya Galvez [facility] January 02, 2023 12:07pm Note Date/Time January 02, 2023 12: 07pm [facility] [address] [place] [address] Progress Note - Wound Care 01/02/23 1205 MR#: [id number] Acct: [id number] Name: MY JAMA Rep #:[id number] : 1960 62 From: Joya Galvez NP 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 Coordination / Balance: jxhuor-[id number]-[id number] test normal Speech: speech abnormal Gait (Neuro): [...] Date Recorded By Document 12/26/22 08:31 PL [id number] 12/26/22 08:39 PL Document 01/02/23 08:29 JF [id number] 01/02/23 08:33 JF 12/26/22 01/02/23 08:31 08:29 - Today's Visit Information Type of service Follow-up Visit Follow-up Visit (Physician/PHYSICIST [facility] (Physician/PHYSICIST [facility] ) ) Arrival Mode Ambulatory Ambulatory Transfer [...] Date Recorded By Document 12/26/22 08:31 PL [id number] 12/26/22 08:39 PL Document 01/02/23 08:29 JF [id number] 01/02/23 08:33 JF 12/26/22 01/02/23 08:31 08:29 [...] Amt Medium (34-66%) Medium (34-66%) -Granulation Quality [place]ough/Fibrin Yes Yes -Necrosis Amt Medium (34-66%) [...] Date Recorded By Document 12/26/22 08:43 MW [id number] 12/26/22 08:45 MW Document 01/02/23 08:47 MW [id number] 01/02/23 08:50 MW 12/26/22 01/02/23 08:43 08:47 [...] Pain Free? Yes Yes DHAVAL - Nurse 3 - General Ulcer D/C NN Start: 12/26/22 08:31 Freq: Status: Active Protocol: Activity Type Activity Date Activity User E-sign Co-sign Detail Recorded Client Recorded Date Recorded By Document 12/26/22 08:49 MW [id number] 12/26/22 08:49 MW Document 01/02/23 08:51 MW [id number] 01/02/23 08:51 MW 12/26/22 01/02/23 08:49 08:51 [...] 01/02/23 1207 <Electronically signed by Joya Galvez NP, NP-C> Cosigner Signature (if applicable): CC: ~ Signed [facility] Work Phone: 1(521) 974-819604-05-2023 Progress note Author Joya Galvez [facility] December 26, 2022 8:50am Note Date/Time December 26, 2022 8:50 am [facility] [address] [place] [address] Progress Note - Wound Care 12/26/22 0847 MR#: [id number] Acct: [id number] Name: MY JAMA Rep #:[id number] : 1960 62 From: Joya BUNN PCP: [...] of first interosseous muscles. Coordination / Balance: rrxczd-ko-mkku test normal Speech: speech abnormal Gait (Neuro): [...] Date Recorded By Document 12/26/22 08:31 PL [id number] 12/26/22 08:39 PL 12/26/22 08:31 DHAVAL - Today's Visit Information Type of service Follow-up Visit (Physician/PHYSICIST [facility] ) Arrival Mode Ambulatory Transfer Assistance None [...] Patient Pain Free? Yes DHAVAL - Nurse 1 - General Ulcer Measurement Start: 12/26/22 08:31 Freq: Status: Active Protocol: Activity Type Activity Date Activity User E-sign Co-sign Detail Recorded Client Recorded Date Recorded By Document 12/26/22 08:31 PL [id number] 12/26/22 08:39 PL 12/26/22 08:31 Wound Center Nurse 1 #1 Chin -Combined with other wound No -Current Size (cm) - Length 2.0 -Current Size (cm) - Width 3.0 -Current Size (cm) - Depth 0.2 -Total Square Cm 6.00 -Photo Taken No -Epithelialization Medium 34-66% -Exudate Amt Medium -Exudate Type Serosanguineous -Granulation Amt Medium (34-66%) -Granulation Quality [place] -Slough/Fibrin Yes -Necrosis Amt Medium (34-66%) -Necrotic Tissue Type Adherent Slough -Texture (Candace-wound Skin Appearance) No Abnormality -Moisture (Candace-wound Skin Appearance) No Abnormality -Color (Candace-wound Skin Appearance) No Abnormality -Ulcer Cleansing Rinsed/ Irrigated with Saline -Foul Odor after Cleansing No -Anesthetic Used 5% Lidocaine Gel DHAVAL - Nurse 2 - General Ulcer CM Notes Start: 12/26/22 08:31 Freq: Status: Active Protocol: Activity Type Activity Date Activity User E-sign Co-sign Detail Recorded Client Recorded Date Recorded By Document 12/26/22 08:43 MW [id number] 12/26/22 08:45 MW 12/26/22 08:43 Wound Center [...] 0850 <Electronically signed by Joya Galvez NP [employer]-C> Cosigner Signature (if applicable): CC: ~ Signed [facility] Work Phone: 1(240) 197-242103-22-2023 Progress note Author Joya Galvez [facility] December 12, 2022 11:57am Note Date/Time December 12, 2022 11: 57am [facility] [address] [place] [address] Progress Note - Wound Care 12/12/22 1155 MR#: [id number] Acct: [id number] Name: MY JAMA Rep #:[id number] : 1960 62 From: Joya BUNN PCP: [...] of first interosseous muscles. Coordination / Balance: qwbatn-xt-piyd test normal Speech: speech abnormal Gait (Neuro): [...] Start: 11/28/22 08:23 Freq: Status: Active Protocol: DHAVAL.ROXANA Activity Type Activity Date Activity User E-sign Co-sign Detail Recorded Client Recorded Date Recorded By Document 11/28/22 08:23 [facility] [id number] 11/28/22 08:25 BM Document 12/05/22 08:22 [facility] [id number] 12/05/22 08:27 BM Document 12/12/22 08:52 AK [id number] 12/12/22 08:55 AK 11/28/22 12/05/22 12/12/22 08:23 08:22 08:52 WC - Today's Visit Information Type of service Follow-up Visit Follow-up Visit Follow-up Visit (Physician/PHYSICIST [facility] (Physician/PHYSICIST [facility] (Physician/PHYSICIST [facility] ) ) ) Arrival Mode Ambulatory Ambulatory [...] Recorded Date Recorded By Document 11/28/22 08:23 [facility] [id number] 11/28/22 08:25 [facility] Document 12/05/22 08:22 [facility] [id number] 12/05/22 08:27 [facility] Document 12/12/22 08:52 AK [id number] 12/12/22 08:55 AK 11/28/22 12/05/22 12/12/22 08:23 [...] Date Recorded By Document 11/28/22 11:23 PL [id number] 11/28/22 11:23 PL Document 12/05/22 08:45 MW [id number] 12/05/22 08:48 MW Document 12/12/22 08:56 MW [id number] 12/12/22 09:00 MW 11/28/22 12/05/22 12/12/22 11:23 [...] Recorded Date Recorded By Document 11/28/22 08:49 [facility] [id number] 11/28/22 08:49 BM Document 12/05/22 08:53 [facility] [id number] 12/05/22 08:54 [facility] Document 12/12/22 09:20 [place] [id number] 12/12/22 09:21 AK 11/28/22 12/05/22 12/12/22 08:49 [...] 1157 <Electronically signed by Joya Galvez NP [employer]-C> Cosigner Signature (if applicable): CC: ~ Signed [facility] Work Phone: 1(913) 705-939403-15-2023 Progress note Author Joya Galevz [facility] December 05, 2022 10:21am Note Date/Time December 05, 2022 10: 21am [facility] [address] [place] [address] Progress Note - Wound Care 12/05/22 1018 MR#: [id number] Acct: [id number] Name: MY JAMA Rep #:[id number] : 1960 62 From: Joya Galvez NP 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 Coordination / Balance: ibkqrs-ru-biwn test normal Speech: speech abnormal Gait (Neuro): [...] Recorded Date Recorded By Document 11/28/22 08:23 [facility] [id number] 11/28/22 08:25 [facility] Document 12/05/22 08:22 [facility] [id number] 12/05/22 08:27 [facility] 11/28/22 12/05/22 08:23 08:22 - Today's Visit Information Type of service Follow-up Visit Follow-up Visit (Physician/PHYSICIST [facility] (Physician/PHYSICIST [facility] ) ) Arrival Mode Ambulatory Ambulatory Transfer [...] Recorded Date Recorded By Document 11/28/22 08:23 [facility] [id number] 11/28/22 08:25 [facility] Document 12/05/22 08:22 [facility] [id number] 12/05/22 08:27 [facility] 11/28/22 12/05/22 08:23 08:22 Wound Center [...] Date Recorded By Document 11/28/22 11:23 PL [id number] 11/28/22 11:23 PL Document 12/05/22 08:45 MW [id number] 12/05/22 08:48 MW 11/28/22 12/05/22 11:23 08:45 [...] Recorded Date Recorded By Document 11/28/22 08:49 [facility] [id number] 11/28/22 08:49 [facility] Document 12/05/22 08:53 [facility] [id number] 12/05/22 08:54 [facility] 11/28/22 12/05/22 08:49 08:53 Wound Care [...] 1021 <Electronically signed by Joya Galvez NP [employer]-C> Cosigner Signature (if applicable): CC: ~ Signed [facility] Work Phone: 1([phone]) 814-529903-08-2023 Progress note Author Joya Galvez [facility] November 28, 2022 10:58am Note Date/Time November 28, 2022 10:5 8am [facility] [address] [place] [address] Progress Note - Wound Care 11/28/22 1051 MR#: [id number] Acct: [id number] Name: MY JAMA Rep #:[id number] : 1960 62 From: Joya Galvez NP, [...] L Room Air 11/28/22 08:23 11/28/22 08:23 03 08:23 11/28/22 08:23 11/28/22 08:23 Oxygen Delivery [...] of first interosseous muscles. Coordination / Balance: mwswsa-ff-jzbs test normal Speech: speech abnormal Gait (Neuro): [...] Recorded Date Recorded By Document 11/28/22 08:23 [facility] [id number] 11/28/22 08:25 [facility] 11/28/22 08:23 - Today's Visit Information Type of service Follow-up Visit (Physician/PHYSICIST [facility] ) Arrival Mode Ambulatory Transfer Assistance None [...] Recorded Date Recorded By Document 11/28/22 08:23 [facility] [id number] 11/28/22 08:25 [facility] 11/28/22 08:23 Wound Center Nurse 1 [...] with Saline -Anesthetic Used 5% Lidocaine Gel - Nurse 3 - General Ulcer D/C NN Start: 11/28/22 08:23 Freq: Status: Active Protocol: Activity Type Activity Date Activity User E-sign Co-sign Detail Recorded Client Recorded Date Recorded By Document 11/28/22 08:49 [facility] [id number] 11/28/22 08:49 [facility] 11/28/22 08:49 Wound Care Center Nurse [...] 1058 <Electronically signed by Joya Galvez NP [employer]-C> Cosigner Signature (if applicable): CC: ~ Signed [facility] Work Phone: 1(580) 963-360302-22-2023 Progress note Author Joya Galvez [facility] November 14, 2022 12:06pm Note Date/Time November 14, 2022 12:06pm [facility] [address] [place] [address] Progress Note - Wound Care 11/14/22 1202 MR#: [id number] Acct: [id number] Name: MY JAMA Rep #:[id number] : 1960 62 From: Joya Galvez NP [employer]-C PCP: YARI Pardo Status:REG RCR Location: History [...] Start: 10/24/22 08:18 Freq: Status: Active Protocol: DHAVAL.LOWEXT Activity Type Activity Date Activity User E-sign Co-sign Detail Recorded Client Recorded Date Recorded By Document 10/24/22 08:23 SHANTELL [id number] 10/24/22 08:25 AK Document 11/07/22 08:27 AK Desktop 11/07/22 08:28 AK Document 11/14/22 08:59 AK [id number] 11/14/22 09:00 AK 10/24/22 11/07/22 11/14/22 08:23 08:27 08:59 - Today's Visit Information Type of service Follow-up Visit Follow-up Visit Follow-up Visit (Physician/PHYSICIST [facility] (Physician/PHYSICIST [facility] (Physician/PHYSICIST [facility] ) ) ) Arrival Mode Ambulatory Ambulatory [...] Date Recorded By Document 10/24/22 08:23 AK [id number] 10/24/22 08:25 AK Document 11/07/22 08:27 AK Desktop 11/07/22 08:28 AK Document 11/14/22 08:59 AK [id number] 11/14/22 09:00 AK 10/24/22 11/07/22 11/14/22 08:23 [...] (1-33%) Small (1-33%) Small (1-33%) -Granulation Quality [place] -Slough/Fibrin Yes Yes Yes -Necrosis Amt Large [...] Date Recorded By Document 10/24/22 09:02 MW [id number] 10/24/22 09:04 MW Document 11/07/22 08:44 MW [id number] 11/07/22 08:46 MW Document 11/14/22 08:52 MW [id number] 11/14/22 08:53 MW 10/24/22 11/07/22 11/14/22 09:02 [...] Recorded Date Recorded By Document 10/24/22 10:43 [facility] [id number] 10/24/22 10:44 [facility] Document 11/07/22 08:52 ML [id number] 11/07/22 08:55 ML Document 11/14/22 09:05 [facility] [id number] 11/14/22 09:05 [facility] 10/24/22 11/07/22 11/14/22 10:43 08:52 09:05 [...] 1206 <Electronically signed by Joya Galvez NP [employer]-C> Cosigner Signature (if applicable): CC: ~ Signed [facility] Work Phone: 1(707) 696-942502-15-2023 Progress note Author Joya Galvez [facility] November 07, 2022 9:38am Note Date/Time November 07, 2022 9:22am [facility] [address] [place] [address] Progress Note - Wound Care 11/07/22 0920 MR#: [id number] Acct: [id number] Name: MY JAMA Rep #:[id number] : 1960 62 From: Joya Galvez NP [employer]-C PCP: YARI Pardo Status:REG RCR Location: History [...] Date Recorded By Document 10/24/22 08:23 SHANTELL [id number] 10/24/22 08:25 AK Document 11/07/22 08:27 SHANTELL Desktop 11/07/22 08:28 AK 10/24/22 11/07/22 08:23 08:27 WC - Today's Visit Information Type of service Follow-up Visit Follow-up Visit (Physician/PHYSICIST [facility] (Physician/PHYSICIST [facility] ) ) Arrival Mode Ambulatory Ambulatory Patient [...] Is Patient Pain Free? Yes Yes DHAVAL King Nurse 1 - General Ulcer Measurement Start: 10/24/22 08:18 Freq: Status: Active Protocol: Activity Type Activity Date Activity User E-sign Co-sign Detail Recorded Client Recorded Date Recorded By Document 10/24/22 08:23 AK [id number] 10/24/22 08:25 AK Document 11/07/22 08:27 AK [...] Amt Small (1-33%) Small (1-33%) -Granulation Quality [place] -Slough/Fibrin Yes Yes -Necrosis Amt Large (67-100%) [...] Date Recorded By Document 10/24/22 09:02 MW [id number] 10/24/22 09:04 MW Document 11/07/22 08:44 MW [id number] 11/07/22 08:46 MW 10/24/22 11/07/22 09:02 08:44 [...] Recorded Date Recorded By Document 10/24/22 10:43 [facility] [id number] 10/24/22 10:44 [facility] Document 11/07/22 08:52 ML [id number] 11/07/22 08:55 ML 10/24/22 11/07/22 10:43 08:52 [...] at the time of the procedure 11/07/22 0943 <Electronically signed by Joya Galvez NP, NP-C> Cosigner Signature (if applicable): CC: ~ Signed [facility] Work Phone: 1([phone]) 408-652602-01-2023 Progress note Author Joya Galvez [facility] October 24, 2022 11:45am Note Date/Time October 24, 2022 1 1:09am [facility] [address] [place] [address] Progress Note - Wound Care 10/24/22 1106 MR#: [id number] Acct: [id number] Name: MY JAMA Yamilet Rep #:[id number] : 1960 62 From: Joya Galvez NP [employer]-C PCP: YARI Pardo Status:REG RCR Location: ADDENDUM [...] 10/24/22 1145<Electronically signed by Joya Galvez NP [employer]-C> Cosigner Signature (if applicable): cc: ~* Signed [...] Recorded Date Recorded By Document 10/24/22 08:23 [place] [id number] 10/24/22 08:25 AK 10/24/22 08:23 - Today's Visit Information Type of service Follow-up Visit (Physician/PHYSICIST [facility] [facility] ) Arrival Mode Ambulatory Patient Identification Verified [...] Patient Pain Free? Yes DHAVAL - Nurse 1 - General Ulcer Measurement Start: 10/24/22 08:18 Freq: Status: Active Protocol: Activity Type Activity Date Activity User E-sign Co-sign Detail Recorded Client Recorded Date Recorded By Document 10/24/22 08:23 SHANTELL [id number] 10/24/22 08:25 SHANTELL 10/24/22 08:23 Wound Center Nurse 1 #1 [...] Attached -Granulation Amt Small (1-33%) -Granulation Quality [place] -Slough/Fibrin Yes -Necrosis Amt Large (67-100%) -Necrotic [...] Recorded Date Recorded By Document 10/24/22 09:02 [id number] 10/24/22 09:04 MW 10/24/22 09:02 Wound Center [...] Recorded Date Recorded By Document 10/24/22 10:43 [facility] [id number] 10/24/22 10:44 [facility] 10/24/22 10:43 Wound Care Center Nurse [...] 1109 <Electronically signed by Joya Galvez NP [employer]-C> Cosigner Signature (if applicable): CC: ~ Signed [facility] Work Phone: 1([phone]) 150-729801-18-2023 Progress note Author Joya Galvez [facility] October 10, 2022 10:10am Note Date/Time October 10, 2022 1 0:10am [facility] [address] [place] [address] Progress Note - Wound Care 10/10/22 1006 MR#: [id number] Acct: [id number] Name: MY JAMA Rep #:[id number] : 1960 62 From: Joya Galvez NP [employer]-C PCP: YARI Pardo Status:REG RCR Location: History [...] Recorded Date Recorded By Document 10/03/22 08:22 [facility] [id number] 10/03/22 08:25 [facility] Document 10/10/22 08:29 [facility] [id number] 10/10/22 08:32 [facility] 10/03/22 10/10/22 08:22 08:29 - Today's Visit Information Type of service Follow-up Visit Follow-up Visit (Physician/PHYSICIST [facility] (Physician/PHYSICIST [employer] [facility] ) ) Arrival Mode Ambulatory Ambulatory Transfer [...] Recorded Date Recorded By Document 10/03/22 08:22 [facility] [id number] 10/03/22 08:25 [facility] Document 10/10/22 08:29 [facility] [id number] 10/10/22 08:32 BMF 10/03/22 10/10/22 08:22 08:29 [...] Date Recorded By Document 10/03/22 08:32 MW [id number] 10/03/22 08:37 MW Document 10/10/22 08:39 MW [id number] 10/10/22 08:42 MW 10/03/22 10/10/22 08:32 08:39 [...] Recorded Date Recorded By Document 10/03/22 08:43 [facility] [id number] 10/03/22 08:43 [facility] Document 10/10/22 08:47 [place] [id number] 10/10/22 08:48 [place] 10/03/22 10/10/22 08:43 08:47 Wound Care Nurse [...] 1010 <Electronically signed by Joya Galvez NP [employer]-C> Cosigner Signature (if applicable): CC: ~ Signed [facility] Work Phone: 1(336) 237-428201-11-2023 Progress note Author Joya Galvez [facility] October 03, 2022 10:35am Note Date/Time October 03, 2022 1 0:35am [facility] [address] [place] [address] Progress Note - Wound Care 10/03/22 1032 MR#: [id number] Acct: [id number] Name: MY JAMA Rep #:[id number] : 1960 62 From: Joya Galvez NP [employer]-C PCP: YARI Pardo Status:REG RCR Location: History [...] Recorded Date Recorded By Document 10/03/22 08:22 [facility] [id number] 10/03/22 08:25 [facility] 10/03/22 08:22 - Today's Visit Information Type of service Follow-up Visit (Physician/PHYSICIST [facility] [facility] ) Arrival Mode Ambulatory Transfer Assistance None [...] Recorded Date Recorded By Document 10/03/22 08:22 [facility] [id number] 10/03/22 08:25 BMF 10/03/22 08:22 Wound Center Nurse 1 #1 [...] Date Recorded By Document 10/03/22 08:32 MW [id number] 10/03/22 08:37 MW 10/03/22 08:32 Wound Center [...] Recorded Date Recorded By Document 10/03/22 08:43 [facility] [id number] 10/03/22 08:43 [facility] 10/03/22 08:43 Wound Care Nurse 3 [...] 1035 <Electronically signed by Joya Galvez NP [employer]-C> Cosigner Signature (if applicable): CC: ~ Signed [facility] Work Phone: 1([phone]) 167-826507-25-2022 History of Present illness Narrative* Mr. MY JAMA, is a 61 year old male here for a followup regarding his open anterior chin wound. Last seen 04/16/22. He has been referred to the wound clinic at [place]. He goes once a week and they deride the wound. He has his trach capped today. He is currently on Levaquin for 14 days. He hasbeen seen by [employer] and is advancing his diet. He is [...] script. 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 Patient completed adjuvant chemoradiation on 02/06/22. 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 TI-Xdzzrayklnhhyu-Mcxce Work Phone: 1(111) [phone] History of Present illness Narrative* Mr. MY JAMA, is a 61 year old male here for a followup regarding his open anterior chin wound. Last seen 04/16/22. He has been referred to the wound clinic at [place]. He goes once a week and they deride the wound. He has his trach capped today. He is currently on Levaquin for 14 days. He hasbeen seen by [employer] and is advancing his diet. He is [...] script. * He has a history of X3V0fF2 oral cavity SCCa with chin involvement s/p triple, trach, PEG, composite resection, excision of skin and soft tissue, segmental mandibulectomy, right neck dissection, leftneck exploration for vessels, reconstruction with left ALT and left fibular free flap on 11/07/21. Patient completed adjuvant chemoradiation on 02/06/22. * History: * Dx1: UcU4eX1 left neck (unknown primary) 2018 * Dx2: W6C5wZ3 SCCa of the oral cavity 2020 * [...] lymphadenopathy * 09/12: Oral cavity biopsy at [facility] +SCCa * 10/14: PET FDG avid oral [...] the history, physical exam, discussion and plan. PX-Utjbtojxmomefm-Ftqxh Work Phone: 1([phone]) [phone] History of Present illness Narrative* Mr. MY [...] been referred to the wound clinic at [place]. He is seeing the wound care clinic next week. He has his trach capped today. He had an MBS w/ speech. 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 Patient completed adjuvant chemoradiation on 02/06/22. 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 EQ-Qqqpkdixhrdbpa-Xpxjw Work Phone: 1(642) 303-852202-15-2022 History of Present illness Narrative* Mr. MY [...] Recommendation is for * History: * Dx1: IxE5rV2 left neck (unknown primary) 2018 * Dx2: [...] lymphadenopathy * 09/12: Oral cavity biopsy at [facility] +SCCa * 10/14: PET FDG avid oral [...] the history, physical exam, discussion and plan. UI-Pfloxhgcpkfyec-Kvxnvgi Work Phone: 1([phone]) 236-607502-15-2022 History of Present illness Narrative* Mr. MY [...] for adjuvant radiation. * History: * Dx1: AkD9jQ5 left neck (unknown primary) 2018 * Dx2: [...] lymphadenopathy * 09/12: Oral cavity biopsy at [facility] +SCCa * 10/14: PET FDG avid oral cavity mass w/bone involvement SUV12, no lymphadenopathy or distant metastasis * 11/07/21: S/p triple, trach, PEG, composite resection, excision of skin and soft tissue, segmental mandibulectomy, right neck dissection, left neck exploration for vessels, reconstruction with left ALT and left fibular free flap on 11/07/21. Path + 6.5cm SCCa, 3 lymph nodes + * 11/24/21: Tumor board [...] the history, physical exam, discussion and plan. BL-Schzlqjefxezxz-Xxhsk Work Phone: 1([phone]) 376-732802-15-2022 History of Present illness Narrative* Mr. MY JAMA, is a 61 year old male here for a post op visit s/p triple, trach, PEG, composite resection, excision of skin and soft tissue, segmental mandibulectomy, right neck dissection, leftneck exploration for vessels, reconstruction with left ALT and left fibular free flap on 11/07/21. Path + 6.5cm SCCa, 3 lymph nodes +. Patient was taken back [...] his speaking valve. * History: * Dx1: MnS8xJ8 left neck (unknown primary) 2018 * Dx2: L7N8vE9 SCCa of the oral cavity 2020 * [...] lymphadenopathy * 09/12: Oral cavity biopsy at [facility] +SCCa * 10/14: PET FDG avid oral [...] the history, physical exam, discussion and plan. LF-Ingzyuwlfpyqyp-Bokuh [place] [address] Work Phone: 1([phone]) [phone] History of Present illness Narrative* Mr. MY JAMA, is a 61 year old male here for a third post op visit for his W9Z7bA5 oral cavity SCCa with chin involvement s/p [...] ENT complaints today. * History: * Dx1: YxN4hV6 left neck (unknown primary) 2018 * Dx2: V5J1hX7 SCCa of the oral cavity 2020 * [...] lymphadenopathy * 09/12: Oral cavity biopsy at [facility] +SCCa * 10/14: PET FDG avid oral [...] the history, physical exam, discussion and plan. MS-Dyceatsvvcfocm-Yjsgd Work Phone: 1(441) 468-849602-15-2022 History of Present illness Narrative* Mr. MY JAMA, is a 61 year old male here for a third post op visit for his H2J5oZ4 oral cavity SCCa with chin involvement s/p [...] chemoradiation therapy daily. * History: * Dx1: OkX2cX9 left neck (unknown primary) 2018 * Dx2: Y6O7cP7 SCCa of the oral cavity 2020 * [...] lymphadenopathy * 09/12: Oral cavity biopsy at [facility] +SCCa * 10/14: PET FDG avid oral [...] the history, physical exam, discussion and plan. DP-Mqvkavmfevgpyb-Vbkde [facility] [address] Work Phone: 1([phone]) 360-274002-15-2022 History of Present illness Narrative* Mr. MY JAMA, is a 61 year old male here for a cancer follow up. He has a history of V1J0fU5 oral cavity SCCa with chin involvement s/p [...] this. He is currently getting chemoradiation in [place]. He has 3 more weeks left. * History: * Dx1: ViV3qG9 left neck (unknown primary) 2018 * Dx2: K2U1cB9 SCCa of the oral cavity 2020 * [...] lymphadenopathy * 09/12: Oral cavity biopsy at [facility] +SCCa * 10/14: PET FDG avid oral [...] the history, physical exam, discussion and plan. GT-Jkhjlrpkfiwwkz-Lggaj Work Phone: 1(285) 820-336502-15-2022 History of Present illness Narrative* Mr. MY JAMA, is a 61 year old male here for a cancer follow up. He has a history of Q7H8uO6 oral cavity SCCa with chin involvement s/p [...] this. He is currently getting chemoradiation in [place]. He has 3 more weeks left with 2 more chemo treatments. He is tolerating daily therapy. He is coughing up more blood clots recently. Daughters report he is always cold and sits by an electric heater all day. They are out of saline bullets for his trach * History: * Dx1: VbK9cF9 left neck (unknown primary) 2018 * Dx2: M7M6rC7 SCCa of the oral cavity 2020 * [...] lymphadenopathy * 09/12: Oral cavity biopsy at [facility] +SCCa * 10/14: PET FDG avid oral [...] the history, physical exam, discussion and plan. SX-Nufjardxlqkcdh-Knjen [facility] [address] Work Phone: 1([phone]) 703-858402-15-2022 History of Present illness Narrative* Mr. MY JAMA, is a 61 year old male here for a cancer follow up. He has a history of V2G7gO1 oral cavity SCCa with chin involvement s/p [...] capping the trach * History: * Dx1: AlZ6uD3 left neck (unknown primary) 2018 * Dx2: H2E4uP8 SCCa of the oral cavity 2020 * [...] lymphadenopathy * 09/12: Oral cavity biopsy at [facility] +SCCa * 10/14: PET FDG avid oral [...] the history, physical exam, discussion and plan. FQ-Fxjesxjzovsxro-Ciewe Work Phone: 1([phone]) 192-182602-15-2022 History of Present illness Narrative* Mr. MY JAMA, is a 61 year old male here for a cancer follow up. He has a history of F4W0lC9 oral cavity SCCa with chin involvement s/p [...] capping the trach * History: * Dx1: NvE3rC2 left neck (unknown primary) 2018 * Dx2: C9R9hN9 SCCa of the oral cavity 2020 * [...] lymphadenopathy * 09/12: Oral cavity biopsy at [facility] +SCCa * 10/14: PET FDG avid oral [...] the history, physical exam, discussion and plan. UR-Wizobjyxrlzuaz-Eetvr [facility] [address] Work Phone: 1(859) 160-278402-01-2022 History of Present illness NarrativeThis gentleman is [...] face. There is no obvious of metastatic disease.JH-Eupxpqxovoutjg-Xuzvlvsy Work Phone: 1(663) 285-447401-11-2022 NoteHNO ID: [id number] Author: Laurita Mabry MD Service: ? Author Type: Physician Type: Progress Notes Filed: 10/03/2021 2:06 PM Note Text: I called the patient on the phone number on his epic account and went to voicemail. I left voicemail for him to call me back and I left him my cell phone number. Laurita Mabry, [facility]01-10-2022 NoteHNO ID: [id number] Author: Jesika Pichardo MD Service: ? Author [...] referring physician via mail or electronic medical record.[facility]01-06-2022 NoteHNO ID: [id number] Author: Laurita Mabry MD Service: ? Author [...] cauterized using silver nitrat (more content not included)...[facility]09-01-2019 History of Present illness Narrative* Mr. [...] to ETD. Patient seen by ENT at [facility] and had PE tubes placed. Patient was noted to have a lesion in the oral cavity near dental extraction site. Punch biopsy was obtained and path + SCCa. Patient seen by his radiation oncologist, Dr. Sellers. Patient had a PET scan on 10/11/21. I do have access to the report, but not theimages. * Patient with a history of YsD4gE2 left neck (unknown primary) head and neck [...] the history, physical exam, discussion and plan. OD-Hpfrohwixxdrrn-Robqg Work Phone: 1([phone]) 627-566209-01-2019 History of Present illness Narrative* Mr. MY [...] to ETD. Patient seen by ENT at [facility] and had PE tubes placed. Patient was noted to have a lesion in the oral cavity near dental extraction site. Punch biopsy was obtained and path + SCCa. Patient seen by his radiation oncologist, Dr. Sellers. Patient had a PET scan on 10/11/21. I do have access to the report, but not theimages. * Patient with a history of VkY4xU1 left neck (unknown primary) head and neck [...] the history, physical exam, discussion and plan. QE-Afbscyinnfdkgu-Labot [place] [address] Work Phone: [phone]) 485-426009-01-2019 History of Present illness Narrative* Mr. MY [...] to ETD. Patient seen by ENT at [facility] and had PE tubes placed. Patient was noted to have a lesion in the oral cavity near dental extraction site. Punch biopsy was obtained and path + SCCa. Patient seen by his radiation oncologist, Dr. Sellers. Patient had a PET scan on 10/11/21. I do have access to the report, but not theimages. * Patient with a history of IaL1pL2 left neck (unknown primary) head and neck [...] the history, physical exam, discussion and plan. UN-Wcnwffcevfunsh-Zdjihmy Work Phone: [phone]) 156-983709-01-2019 History of Present illness Narrative* Mr. MY JAMA, is a 61 year old male here today for a newly diagnosed SCCa of the oral cavity.Patient last seen by me 05/2019. At that time he was seen in follow up of his DeO3cC6 unknown primary left neck for which he had received chemoradiation therapy. Patient has been lost to follow up. Patient seen by his dentist in August 2021 and had a tooth removed. Patient was thought to have early ORN following the dental extraction. Patient was started on HBO treatments, but could not toleratethem due to ETD. Patient seen by ENT at [facility] and had PE tubes placed. Patient was noted to have a lesion in the oral cavity near dental extraction site. Punch biopsy was obtained and path + SCCa. Kannan nt seen by his radiation oncologist, Dr. [...] overlying his chin. * History: * Dx1: ScD7xV5 left neck (unknown primary) 2018 * Dx2: [...] lymphadenopathy * 09/12: Oral cavity biopsy at [facility] +SCCa * 10/14: PET FDG avid oral [...] the history, physical exam, discussion and plan. YP-Wfkpqxsqpkchrg-Ephkz [facility] [address] Work Phone: Chief complaint Narrative - ReportedConsultation for some help in the management of an oral cavity hxwjvcIK-Kpxiuxdewdtdfh-Kxatzxdg Work Phone: chief complaint+Reason for visit Narrative* [...] metastasis present Anemia Cancer related pain Dehydration [facility] Work Phone: Chief complaint+Reason for visit Narrative* [...] metastasis present Anemia Cancer related pain Dehydration [facility] Work Phone: Chief complaint+Reason for visit Narrative* [...] metastasis present Anemia Cancer related pain Dehydration [facility] Work Phone: Chief complaint+Reason for visit Narrative* [...] metastasis present Anemia Cancer related pain Dehydration [facility] Work Phone: Chief complaint+Reason for visit Narrative* [...] carcinoma Floor of mouth squamous cell carcinoma [facility] Work Phone: Chief complaint+Reason for visit Narrative* [...] Nonhealing surgical wound Head and neck cancer [facility] Work Phone: Chief complaint+Reason for visit Narrative* [...] Soft tissue radionecrosis Head and neck cancer [facility] Work Phone: Consult note Author Roz Bugros e [facility] Note Date/Time April 15, 2025 8:02 am [facility] Medical Records Department [address] [place] [address] Pre-Anesthesia Evaluation 04/15/25 0800 MR#: [id number] Acct: [id number] Name: MY JAMA Rep #:[id number] : 1960 64 From: Roz dow MD PCP: Sadie Santiago NP-C Status:REG S DC Y Race: C Location: [place] [address] ASA Classification* ASA Classification ASA Classification: 3 Assessment & Plan Anesthesia* Anesthesia Assessment Anesthesia Assessment: Discussed sedation and/or anesthesia options, risks, benefits, and alternatives with patient/parents/legal guardian/POA. Questions invited. The patient/parents/legal guardian/POA seems to understand and agrees to proceedwith anesthesia plan. Reviewed the physical assessment, medical history, allergy history and patient home medications list prior to surgery/procedure/anesthetic and documented any changes. Performed airway and anesthesia risk assessments. Anesthesia Type Anesthesia Type: General and MAC History Source History Obtained from:: Patient and Chart Anesthesia Focused Assessment* Temperature: 97.9 F Pulse Rate: 67 Blood Pressure: 167/70 Respiratory Rate: 16 Pulse Ox: 99 Airway Assessment Mouth opens: 2 cm Mallampati Score: IV Teeth Condition: Full and Missing Neck Range of motion (ROM): Limited ROM Comment: Has a trach Labs Anesthesia Preop lab: CBC WBC 7.5 K/mm3 (4.4-11.0) 05/13/24 10:47 05/13/24 RBC 4.83 M/mm3 (4.6-6.2) 05/13/24 10:47 05/13/24 Hgb 14.6 g/dL (13.0-16.5) 05/13/24 10:47 05/13/24 Hct 44.3 % (40-54) 05/13/24 10:47 05/13/24 Plt Count 291 K/mm3 (150-450) 09/15/24 08:52 09/15/24 CHEMISTRY Potassium 3.9 mmol/L (3.5-5.1) 05/13/24 10:47 05/13/24 Sodium 136 mmol/L (136-145) 05/13/24 10:47 05/13/24 Magnesium 1.9 mg/dL (1.6-2.6) 05/23/22 11:05 05/23/22 Phosphorus 3.9 mg/dL (2.5-4.9) 05/23/22 11:05 05/23/22 BUN 10 mg/dL (7-18) 05/13/24 10:47 05/13/24 Creatinine 0.46 mg/dL (0.70-1.30) L 05/13/24 10:47 Glucose 110 mg/dL (74-106) H 05/13/24 10:47 05/13/24 TSH 2.570 uIU/mL (0.358-3.740) 05/13/24 10:47 04/24 10/16 COAG PT 12.8 SECONDS (11.7-14.9) 09/15/24 08:52 Pre-Assessment Diagnosis/Proposed Procedure Planned Operative Procedure(s): EGD Anesthesia History Anesthesia History - staff services manager: Anesthesia History - staff services manager Hx Hospitalization No 04/12/25 11:13 Any Problems With Anesthesia No 04/12/25 11:13 Cholinesterase deficiency No 04/12/25 11:13 You/Your Family Experience No 04/12/25 11:13 fever (hyperthermia) with Relationship Recent Exposure to Contagious No 04/15/25 07:40 Disease Does patient have nerve No 04/12/25 11:13 stimulator Patient instructed to have device shut off --Does patient have Pacemaker No 04/15/25 07:40 or ICD? When Was Last Pacemaker Check QUESTION #4 FULL TEXT: You/Your Family Experience fever (hyperthermia) with Anesthesia Last Oral Intake Last Oral intake: Last Oral Intake NPO since 00:01 04/15/25 07:40 Meds taken in AM with sips of No 04/15/25 07:40 water? Meds patient instructed to take am of surgery PONV PONV - staff services manager: PONV - staff services manager Female No 04/12/25 11:13 HX of Motion Sickness No 04/12/25 11:13 HX of N/V After Surgery No 04/12/25 11:13 Non-Smoker Yes 04/12/25 11:13 Duration of Surgery greater No 04/12/25 11:13 than 60 minutes Number of Risk Factors 1 04/12/25 11:13 PONV Score Low Risk 04/12/25 11:13 Height & Weight Height & Weight: Anesthesia: Height & Weight Height 5 ft 5 in 04/15/25 07:40 Weight: 54 kg 04/15/25 07:40 Body Mass Index (BMI) 19.8 04/15/25 07:40 Respiratory Assessment Respiratory Assessment - staff services manager: Respiratory Tract Infection Hx - staff services manager Hx Respiratory Tract Infection No 04/12/25 11:13 STOP Sleep Apnea STOP Sleep Apnea - staff services manager: STOP Sleep Apnea - staff services manager Hx Hypertension Yes: CONTROLLED WITH MED 04/12/25 11:13 Hx Sleep Apnea No 04/12/25 11:13 CPAP BIPAP Do you snore loudly (louder No 04/12/25 11:13 than talking or can be heard Do you often feel tired/ No 04/12/25 11:13 fatigued/ sleepy during daytime? Has anyone observed you stop No 04/12/25 11:13 breathing during sleep? STOP Results Negative 04/12/25 11:13 QUESTION #5 FULL TEXT : Do you snore loudly (louder than talking or can be heard through closed doors)? Tobacco Use History Tobacco Use History - staff services manager: Tobacco Use History - staff services manager Tobacco Use Smoking Status Former smoker 04/12/25 11:13 Hx Tobacco Use No 04/12/25 11:13 Years Smoking Packs Smoked per Day Smoking Cessation Date was Yes - quit smoking within 15 04/12/25 11:13 within the last 15 years years Hx Smoking Cessation Date 07/24/21 04/12/25 11:13 Hx Smoking Cessation Counseling Hematologic Medial History Hematologic Hx - staff services manager: Hematologic Medical Hx - putty glazer Hx of Blood Transfusion No 04/12/25 11:13 Hx of Transfusion in last 3 No 04/12/25 11:13 Months Date of Last Transfusion (if within last 3 months) Ever experience any problems No 04/12/25 11:13 with transfusion(s)? Specify any problems Hx of Preganancy in last 3 N/A 04/12/25 11:13 Months Nurse Filling Out Transfusion NBUCHER 04/12/25 11:13 & Questions: Date: 04/12/25 04/12/25 11:13 Time: 11:14 04/12/25 11:13 Patient unable to answer at this time (ie. confused, unrespo /Reproduction History /Reproductive History - staff services manager: /Reproductive Hx- staff services manager Hx Now Gestational Age (in weeks): EDC: Hx Hx Para Hx Section SAB No 04/12/25 11:13 Active Medications Active Medications: Current Medications Generic Name Dose Route Start Last Admin Trade Name Freq PRN Reason Stop Dose Admin Lactated Ringer's 1,000 mls @ 15 mls/hr 04/15/25 07:30 04/15/25 07:46 IV 15 mls/hr .Q48H ZEENAT Administration PFSH Medical History Wears hearing aid Wears [...] side of neck Difficulty swallowing Home Medications ?Medication ?Instructions ?Recorded ?Last Taken ?Type albuterol sulfate 1.25 mg/3 mL 1.25 mg (3 mL) inhalati on Q4H PRN 12/10/21 Unknown Rx solution for nebulization bronchospasm #90 mL amlodipine 5 mg tablet 5 mg PO DAILY bp 01/23/22 History sodium chloride 1,000 mg soluble 3 g PO BID #60 tabs 0 01/25/22 04/14/25 Rx tablet nystatin 100,000 unit/mL oral 1 ml PO Q6H PRN mouth ir ritation 02/14/22 Unknown History suspension oxycodone 5 mg tablet 5 mg PO BID PRN pain 2 04/15/25 History Levothyroxine 100 mcg PO DAILY thyroid 08/1504/15/25 History folic acid 400 mcg tablet 0.4 mg PO DAILY 09/15/24 History cholecalciferol (vitamin D3) 50 50 mcg PO DAILY 04/14/25 History mcg (2,000 unit) capsule (Vitamin D3) mecobalamin (vitamin B12) 1,000 1,000 mcg PO DAILY 04/14/25 History mcg chewable tablet pentoxifylline 400 mg 400 mg PO TID 04/12/2504/14 History tablet,extended release pilocarpine HCl 5 mg tablet 5 mg PO TID 04/12/2504/14 History Allergy/AdvReac Type Severity Reaction Status Date / Time No Known Allergies Allergy Verified 04/15/25 07:36 Family History Mother CVA (cerebral vascular accident) Surgical History History of esophagogastroduodenoscopy (EGD) History of mandibular surgery Hx of tonsillectomy History of removal of Port-a-Cath s/p port placement (~01/26/19) S/P percutaneous endoscopic gastrostomy (PEG) tube placement (~01/26/19) history of biopsy neck Social History Smoking [...] do you feel safe at home: Yes Review of Systems (Anesthesia) ROS Narrative System reviewed and no additional complaints, except as documented. 04/15/25 0802 <Electronically signed by Roz chambers MD> Date _ Narenyigbnallely Manley Signature: Date CC: ~ Signed [facility] Work Phone: Consult note Author Romulo Lockett [facility] Note Date/Time April 15, 2025 9:02 am [facility] Medical Records Department [address] [place] [address] Anesthesia Postop Eval I 04/15/25900 MR#: [id number] Acct: [id number] Name: MY JAMA Rep #:[id number] : 1960 64 From: Romulo Lockett PCP: Sadie Santiago, [employer]-C Status:REG S DC Y Race: C Location: [place] [address] Anesthesia: Postop Eval I Current Vital Signs Temperature: 97.9 F Pulse Rate: 100 Blood Pressure: 87/59 Respiratory Rate: 16 Pulse Ox: 100 Oxygen Delivery Method: Room Air Assessment Airway patent: Yes Spontaneous unlabored respirations: Yes Mental status: Asleep nausea: No Vomiting: No Anesthesia Complication: No Fluid Hydration Crystalloid volume administer (ml): 300 Total IV fluid infused: 300 Progress Note Anesthesia document: Postop Eval 1 completed: Yes 04/15/25901 <Electronically signed by Romulo Lockett > Date _ Romulo Manley Signature: Date CC: ~ Signed [facility] Work Phone: Evaluation note* Constitutional: Awake/alert/oriented x3, [...] grossly intactPsychological: Appropriate mood and behavior [facility] Diagnosis Onset Date Resolution Status Delayed surgical wound healing acute History of head and neck cancer acute 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 Head and neck cancer chronic Lung nodules chronic Regional lymph node metastasis present chronic Anemia resolved Cancer related pain resolved Dehydration resolved [facility] Work Phone: Evaluation note* Diagnosis Onset Date Resolution Status 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 Head and neck cancer chronic Lung nodules chronic 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 Head and neck cancer chronic Lung nodules chronic Regional lymph node metastasis present chronic Anemia resolved Cancer related pain resolved Dehydration resolved [facility] Work Phone: Evaluation note* Diagnosis Onset Date [...] resolved Cancer related pain resolved Dehydration resolved [facility] Work Phone: Evaluation note* Diagnosis Onset Date [...] resolved Cancer related pain resolved Dehydration resolved [facility] Work Phone: Evaluation note* Diagnosis Onset Date [...] resolved Cancer related pain resolved Dehydration resolved [facility] Work Phone: Evaluation note* Diagnosis Onset Date [...] 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 [facility] Work Phone: Evaluation note* Diagnosis Onset Date [...] 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 [facility] Work Phone: Evaluation note* Diagnosis Onset Date [...] and neck cancer chronic Lung nodules chronic [facility] Work Phone: Evaluation note* Diagnosis Onset Date [...] wound healing acute Nonhealing surgical wound ac [place] Head and neck cancer chronic [facility] Work Phone: Evaluation note* Diagnosis Onset Date [...] wound healing acute Nonhealing surgical wound [place] Head and neck cancer chronic Delayed surgical wound healing acute Nonhealing surgical wound [place] Soft tissue radionecrosis ac [place] Head and neck cancer chronic [facility] Work Phone: Evaluation note* Diagnosis Onset Date [...] wound healing acute Nonhealing surgical wound [place] Head and neck cancer chronic Delayed surgical wound healing acute Nonhealing surgical wound [place] Soft tissue radionecrosis ac [place] Head and neck cancer chronic [facility] Work Phone: Evaluation note* Diagnosis Onset Date Resolution Status Delayed surgical wound healing acute Nonhealing surgical wound [place] Soft tissue radionecrosis ac [place] 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 Delayed surgical wound healing acute Nonhealing surgical wound [place] Soft tissue radionecrosis ac [place] Head and neck cancer chronic Delayed surgical wound healing acute Nonhealing surgical wound [place] Soft tissue radionecrosis [place] Head and neck cancer chronic Delayed surgical wound healing acute Nonhealing surgical wound [place] Soft tissue radionecrosis ac [place] Head and neck cancer chronic [facility] Work Phone: Evaluation note* Diagnosis Onset Date Resolution Status 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 Delayed surgical wound healing acute Nonhealing surgical wound [place] Soft tissue radionecrosis ac [place] Head and neck cancer chronic Delayed surgical wound healing acute Nonhealing surgical wound [place] Soft tissue radionecrosis ac [place] Head and neck cancer chronic Delayed surgical wound healing acute Nonhealing surgical wound [place] Soft tissue radionecrosis [place] 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 Delayed surgical wound healing acute Nonhealing surgical wound [place] Soft tissue radionecrosis ac [place] Head and neck cancer chronic [facility] Work Phone: Evaluation note* Diagnosis Onset Date Resolution Status Delayed surgical wound healing acute Nonhealing surgical wound [place] Soft tissue radionecrosis ac [place] Head and neck cancer chronic Delayed surgical wound healing acute Nonhealing surgical wound [place] Soft tissue radionecrosis ac [place] 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 Delayed surgical wound healing acute Nonhealing surgical wound [place] Soft tissue radionecrosis ac [place] 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 Lung nodules chronic Head and neck cancer chronic Lung nodules chronic Anemia resolved Cancer related pain resolved Dehydration resolved Delayed surgical wound healing acute Nonhealing surgical wound [place] Soft tissue radionecrosis ac [place] Head and neck cancer chronic [facility] Work Phone: Evaluation note* Diagnosis Onset Date Resolution Status Delayed surgical wound healing acute Nonhealing surgical wound [place] Soft tissue radionecrosis ac [place] 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 Delayed surgical wound healing acute Nonhealing surgical wound [place] Soft tissue radionecrosis ac [place] 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 Lung nodules chronic Head and neck cancer chronic Lung nodules chronic Anemia resolved Cancer related pain resolved Dehydration resolved Delayed surgical wound healing acute Nonhealing surgical wound [place] Soft tissue radionecrosis ac [place] Head and neck cancer chronic Delayed surgical wound healing acute Nonhealing surgical wound [place] Soft tissue radionecrosis ac [place] Head and neck cancer chronic [facility] Work Phone: Evaluation note* Diagnosis Onset Date Resolution Status Delayed surgical wound healing acute Nonhealing surgical wound [place] Soft tissue radionecrosis ac [place] 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 Delayed surgical wound healing acute Nonhealing surgical wound [place] Soft tissue radionecrosis ac [place] 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 Lung nodules chronic Head and neck cancer chronic Lung nodules chronic Anemia resolved Cancer related pain resolved Dehydration resolved Delayed surgical wound healing acute Nonhealing surgical wound [place] Soft tissue radionecrosis ac [place] Head and neck cancer chronic Delayed surgical wound healing acute Nonhealing surgical wound [place] Soft tissue radionecrosis ac [place] Head and neck cancer chronic Delayed surgical wound healing acute Nonhealing surgical wound [place] Soft tissue radionecrosis ac [place] 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 [facility] Work Phone: Evaluation note* Diagnosis Onset Date Resolution Status 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 Delayed surgical wound healing acute Nonhealing surgical wound [place] Soft tissue radionecrosis ac [place] 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 Lung nodules chronic Head and neck cancer chronic Lung nodules chronic Anemia resolved Cancer related pain resolved Dehydration resolved Delayed surgical wound healing acute Nonhealing surgical wound [place] Soft tissue radionecrosis ac [place] Head and neck cancer chronic Delayed surgical wound healing acute Nonhealing surgical wound [place] Soft tissue radionecrosis ac [place] 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 Delayed surgical wound healing acute Nonhealing surgical wound [place] Soft tissue radionecrosis ac [place] Head and neck cancer chronic [facility] Work Phone: Evaluation note* Diagnosis Onset Date Resolution Status Delayed surgical wound healing acute Nonhealing surgical wound [place] Soft tissue radionecrosis ac [place] Head and neck cancer chronic Delayed surgical wound healing acute Nonhealing surgical wound [place] Soft tissue radionecrosis ac [place] 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 Delayed surgical wound healing acute Nonhealing surgical wound [place] Soft tissue radionecrosis ac [place] Head and neck cancer chronic Delayed surgical wound healing acute Nonhealing surgical wound [place] Soft tissue radionecrosis ac [place] Head and neck cancer chronic [facility] Work Phone: Evaluation note* Diagnosis Onset Date Resolution Status Delayed surgical wound healing acute Nonhealing surgical wound [place] Soft tissue radionecrosis ac [place] Head and neck cancer chronic Delayed surgical wound healing acute Nonhealing surgical wound [place] Soft tissue radionecrosis ac [place] 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 Delayed surgical wound healing acute Nonhealing surgical wound [place] Soft tissue radionecrosis [place] Head and neck cancer chronic Delayed surgical wound healing acute Nonhealing surgical wound [place] Soft tissue radionecrosis [place] Head and neck cancer chronic Delayed surgical wound healing acute Nonhealing surgical wound [place] Soft tissue radionecrosis [place] Head and neck cancer chronic [facility] Work Phone: Evaluation note* Diagnosis Onset Date Resolution Status Delayed surgical wound healing acute Nonhealing surgical wound [place] Soft tissue radionecrosis [place] 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 Lung nodules chronic [facility] Work Phone: Evaluation note* Diagnosis Acquired hypothyroidism- Primary Unspecified hypothyroidism Oropharyngeal dysphagia Dysphagia, oropharyngeal phase 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) Malignant neoplasm of mouth, unspecified site documented in this encounter [facility] Work Phone: Evaluation note* Diagnosis Onset Date Resolution Status Head and neck cancer chronic Lung nodules chronic 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 Esophageal dysphagia chronic [facility] Work Phone: Evaluation note* Diagnosis Onset Date Resolution Status 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 Esophageal dysphagia [facility] Work Phone: Evaluation note* Diagnosis Oropharyngeal dysphagia- Primary Dysphagia, oropharyngeal phase Sensorineural hearing loss (SNHL) of both ears Cancer of oral cavity (Multi) Malignant neoplasm of mouth, unspecified site 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) Adverse effect of radiation therapy, subsequent encounter Sensorineural hearing loss (SNHL) of both ears- Primary documented in this encounter [facility] Work Phone: Evaluation note* Diagnosis Acquired [...] hypothyroidism Unspecified hypothyroidism documented in this encounter [facility] Work Phone: Evaluation note* Diagnosis Acquired [...] (Multi) Tracheostomy status documented in this encounter [facility] Work Phone: Evaluation note* Diagnosis Acquired [...] neck, subsequent encounter documented in this encounter [facility] Work Phone: Evaluation note* Diagnosis Acquired [...] encounter Open wound of neck, subsequent encounter History of malignant neoplasm of oral cavity- Primary 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 Oropharyngeal dysphagia Dysphagia, oropharyngeal phase Adverse effect of radiation, sequela Acquired hypothyroidism Unspecified hypothyroidism Other disorders of arteries, arterioles and capillaries in diseases classified elsewhere documented in this encounter [facility] Work Phone: History and physical note Author Elliott Akhtar [facility] September 03, 2023 2:00pm Note Date/Time September 03, 2023 2:00pm [facility] Medical Records Department [address] [place] [address] History & Physical Exam 09/03/23 1400 MR#: [id number] Acct: [id number] Name: MY JAMA Rep #:[id number] : 1960 63 From: Elliott Friend DO PCP: ERWIN PardoC Status:REG [facility] Location: [place] [address] History and Physical Date of Admission: 09/03/23 [...] Appearance: average body habitus and well nourished [facility] Head: normal to inspection Ears: hearing [...] Affect: normal affect Quality Reporting Tobacco Screening ([facility] 138) Smoking Status: Former smoker Assessment [...] CC: YARI Gonzalez; Elliott Akhtar DO~ Signed [facility] Work Phone: History and physical note Author Elliott Akhtar [facility] Note Date/Time April 15, 2025 7:41 am [facility] Medical Records Department [address] [place] [address] History & Physical Exam 04/15/25 0739 MR#: [id number] Acct: [id number] Name: MY JAMA Rep #:[id number] : 1960 64 From: Elliott Akhtar DO PCP: YARI Santillan Status:REG S DC Location: [place] [address] HPI - General General Date of Admission: 04/15/25 Date of Service: 04/15/25 Chief Complaint: Esophageal dysphagia HPI Narrative MY JAMA, is a 64 M who presents for an upper endoscopy regarding severe esophageal dysphagia secondary to radiation. [facility] established for management of mouth squamous cell [...] forceps for evaluation of eosinophilic esophagitis. OV 5..24 pt reports continued difficulty swallowing. EGD 02.19.24 The nasopharynx and oropharynx are abnormal. Benign-appearing esophageal stenosis. Dilated. Injected with botulinum toxin. No gross lesions inthe entire stomach. No gross lesions in the duodenal bulb. No specimens collected. Modified Barium Swallow 10..24 Severe oropharyngeal dysphagia OV 11..24 pt reports continued difficulty swallowing, denies other GI symptomsof concern at this time. EGD 10.21. Benign-appearing esophageal stenosis. Dilated. Small hiatal hernia. No gross lesions in the duodenal bulb. No specimens collected. Modified Barium Swallow 3.25 severe oropharyngeal dysphagia OV 5..25 pt reports that he is feeling well overall and denies GI symptoms of concern, but would like to schedule his next EGD. [facility] Medical History Wears hearing aid [...] side of neck Difficulty swallowing Home Medications ?Medication ?Instructions ?Recorded ?Last Taken ?Type albuterol sulfate 1.25 mg/3 mL 1.25 mg (3 mL) inhalati on Q4H PRN 12/10/21 Unknown Rx solution for nebulization bronchospasm #90 mL amlodipine 5 mg tablet 5 mg PO DAILY bp 01/23/22 History sodium chloride 1,000 mg soluble 3 g PO BID #60 tabs 0 01/25/22 04/14/25 Rx tablet nystatin 100,000 unit/mL oral 1 ml PO Q6H PRN mouth ir ritation 02/14/22 Unknown History suspension oxycodone 5 mg tablet 5 mg PO BID PRN pain 2 04/15/25 History Levothyroxine 100 mcg PO DAILY thyroid 08/1504/15/25 History folic acid 400 mcg tablet 0.4 mg PO DAILY 09/15/24 History cholecalciferol (vitamin D3) 50 50 mcg PO DAILY 04/14/25 History mcg (2,000 unit) capsule (Vitamin D3) mecobalamin (vitamin B12) 1,000 1,000 mcg PO DAILY 04/14/25 History mcg chewable tablet pentoxifylline 400 mg 400 mg PO TID 04/12/2504/14 History tablet,extended release pilocarpine HCl 5 mg tablet 5 mg PO TID 04/12/2504/14 History Allergy/AdvReac Type Severity Reaction Status Date / Time No Known Allergies Allergy Verified 04/15/25 07:36 Family History Mother CVA (cerebral vascular accident) Surgical History History of esophagogastroduodenoscopy (EGD) History of mandibular surgery Hx of tonsillectomy History of removal of Port-a-Cath s/p port placement (~01/26/19) S/P percutaneous endoscopic gastrostomy (PEG) tube placement (~01/26/19) history of biopsy neck Social History Smoking [...] safe at home: Yes ROS Constitutional Constitutional: Denies fatigue, fever(s), poor appetite, weight gain or weight loss Gastrointestinal Gastrointestinal: Denies belching, bloating, change in bowel habits, change in stool character, chewing difficulty, coffee ground emesis, constipation, cramping, diarrhea, dyspepsia, dysphagia, early satiety, excessive flatus, fecalincontinence, heartburn, hematemesis, hematochezia, hemorrhoids, loose stools, melena, nausea, odynophagia, rectal bleeding, tenesmus, vomiting or weight changes Physical Exam Const alert, oriented x3, no apparent distress and healthy appearing General Appearance: cooperative GI normal to inspection, nondistended, normoactive bowel sounds, soft to palpation,non-tender and non-distended Percussion: normal to percussion Rectal Exam: deferred Assessment & Plan Assessment/Plan (1) Esophageal dysphagia: PLAN: Assessment and Plan Assessment and Plan (1) [...] of the cricopharyngeus muscle involving the upper esophagealsphincter into the proximal esophagus with dilation up to 42 Kazakh savory dilator. He did well up until a month ago where he had a worsening swallowing. He will undergo repeat upper endoscopy with Botox injection and dilation of the esophagus. 04/15/25 0741 <Electronically signed by Elliott Akhtar DO> Cosigner Signature (if applicable): CC: YARI Santiago; Elliott Akhtar DO~ Signed [facility] Work Phone: History of Present illness Narrative* Mr. MY JAMA, is a 62 year old male here for a followup regarding his open anterior neck wound. Last seen 06/14. He is currently seeing the wound clinic at [place]. He still has his Shiley XLT in. He wears his cap on all day. He only uncaps the trach at night time when he lays flat. He has nothad his trach changed. 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 Patient completed adjuvant chemoradiation on 02/06/22. * History: * Dx1: AuO2vU3 left neck (unknown primary) 2018 * Dx2: U5I0wA9 SCCa of the oral cavity 2020 * [...] lymphadenopathy * 09/12: Oral cavity biopsy at [facility] +SCCa * 10/14: PET FDG avid oral [...] the history, physical exam, discussion and plan. [id number] Work Phone: History of Present illness Narrative* Mr. MY JAMA, is a 62 year old male here for a trach change. Last seen 06/14. He continues to be followed at the [place] wound clinic. Continues with Amber SCOTT, caps during day. Wound has continued to heal very slowly but is smaller. 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 Patient completed adjuvant chemoradiation on 02/06/22. * History: * Dx1: SyP0jZ3 left neck (unknown primary) 2018 * Dx2: J4O3tP8 SCCa of the oral cavity 2020 * [...] lymphadenopathy * 09/12: Oral cavity biopsy at [facility] +SCCa * 10/14: PET FDG avid oral [...] the history, physical exam, discussion and plan. [facility]io[facility]ms[facility] Work Phone: History of Present illness Narrative* Mr. MY JAMA, is a 62 year old male here for a trach change. Last seen 06/14. He continues to be followed at the [place] wound clinic. Continues with Amber SCOTT caps during day. Wound has continued to heal very slowly but is smaller. * He has a history of F4F4wG2 oral cavity SCCa with chin involvement s/p triple, trach, PEG, composite resection, excision of skin and soft tissue, segmental mandibulectomy, right neck dissection, leftneck exploration for vessels, reconstruction with left ALT and left fibular free flap on 11/07/21. Patient completed adjuvant chemoradiation on 02/06/22. * History: * Dx1: AeI3cS3 left neck (unknown primary) 2018 * Dx2: M7E9tP1 SCCa of the oral cavity 2020 * [...] lymphadenopathy * 09/12: Oral cavity biopsy at [facility] +SCCa * 10/14: PET FDG avid oral [...] the history, physical exam, discussion and plan. [facility] Work Phone: History of Present illness NarrativeThis [...] as other doctors in his home in [place].He has had routine follow-ups on his cancer with no recurrence to date. He has had progressive hearing loss that may have been influenced by chemotherapy. He has completed all of his therapy at this point and is now on cancer surveillance exams. He has had no ear pain or drainage. Unfortunately there are no old hearing test to review. [facility]Digdcfvnfzfor[facility]Guhb[facility] Work Phone: Hospital Discharge instructions* Activity:activity as [...] Therapy Orders:Occupational Therapy Orders: [facility] ([facility]), dailyPhysical Therapy Orders: [facility] ([facility]), dailySpeech Therapy Orders: Eval and Treat ([facility]), 1-3 times/week, NO ORAL LIQUIDS OR FOODS UNTIL CLEARED BY SURGICAL ATTENDING * Provider Follow Up:Physician To Follow at Skilled/Rehab: Attending Physician at Skilled/Rehab * Follow Up Appointment 1:Physician/Dept/Service: Dr. Rachel Machuca for Referral: POVScheduled Date/Time: 29-Nov-2021 13:15Location: [facility] 1st Floor Desk BPhone Number:[phone] with questionsComments: Please arrive 10-15 minutes early, [...] (6.0) cuffless Shiley. Suction Catheter Size/Type 14 malay. Date Trach Inserted/Changed: 11/07/21;11/12/21. * PEG Tube [...] * Skilled Facility Instructions:FOR PATIENTS GOING TO RETIREMENT FACILITY: Please make sure thispatient has all suctioning, dressing, trach care and tube feeding supplies in their home prior to leaving the snf facility. [facility] Name Dates Details Patient Instructions Indication:B12 nutritional deficiency Start:02-Dec-2020 Instruction Type:Provider Instructions for Treatment How to Access Health Informa [employer]on Online using Patient Portal and [employer]rd [employer] Apps Indication:Smoker Start:02-Dec-2020 Instruction Type:Patient Education Patient [...] Informa tion Online using Patient Portal and [employer] Apps Indication:Dry mouth Start:13-Mar-2021 Instruction Type:Patient Education Patient Instructions Indication:B12 nutritional deficiency Start:02-Dec-2020 Instruction Type:Provider Instructions for Treatment How to Access Health Informa tion Online using Patient Portal and [employer] Party Apps Indication:Smoker Start:02-Dec-2020 Instruction Type:Patient Education Patient [...] tion Online using Patient Portal and [employer] Apps Indication:Dry mouth Start:13-Mar-2021 Instruction Type:Patient Education Patient Instructions Indication:B12 nutritional deficiency Start:02-Dec-2020 Instruction Type:Provider Instructions for Treatment How to Access Health Informa tion Online using Patient Portal and [employer] Apps Indication:Smoker Start:02-Dec-2020 Instruction Type:Patient Education Patient [...] Informa tion Online using Patient Portal and [employer] Apps Indication:Dry mouth Start:13-Mar-2021 Instruction Type:Patient Education Patient Instructions Indication:B12 nutritional deficiency Start:02-Dec-2020 Instruction Type:Provider Instructions for Treatment How to Access Health Informa tion Online using Patient Portal and [employer] Apps Indication:Smoker Start:02-Dec-2020 Instruction Type:Patient Education Patient [...] Informa tion Online using Patient Portal and [employer] Apps Indication:Smoker Start:15-Aug-2021 Instruction Type:Patient Education Patient Instructions Indication:BMI 20.0-20.9, adult Start:26-Jul-2021 Instruction Type:Provider Instructions for Treatment How to Access Health Informa tion Online using Patient Portal and [employer] Apps Indication:BMI 20.0-20.9, adult Start:26-Jul-2021 Instruction Type:Patient Education Patient Instructions Indication:Dry mouth Start:13-Mar-2021 Instruction Type:Provider Instructions for Treatment How to Access Health Informa tion Online using Patient Portal and [employer] Apps Indication:Dry mouth Start:13-Mar-2021 Instruction Type:Patient Education Patient Instructions Indication:B12 nutritional deficiency Start:02-Dec-2020 Instruction Type:Provider Instructions for Treatment How to Access Health Informa tion Online using Patient Portal and [employer] Apps Indication:Smoker Start:02-Dec-2020 Instruction Type:Patient Education Patient [...] Internal Medicine; [facility] Work Phone: [phone]* Name Dates Details Patient Instructions Indication:Smoker Start:15-Aug-2021 Instruction Type:Provider Instructions for Treatment How to Access Health Informa tion Online using Patient Portal and [employer] Apps Indication:Smoker Start:15-Aug-2021 Instruction Type:Patient Education Patient Instructions Indication:BMI 20.0-20.9, adult Start:26-Jul-2021 Instruction Type:Provider Instructions for Treatment How to Access Health Informa tion Online using Patient Portal and [employer] Apps Indication:BMI 20.0-20.9, adult Start:26-Jul-2021 Instruction Type:Patient Education Patient Instructions Indication:Dry mouth Start:13-Mar-2021 Instruction Type:Provider Instructions for Treatment How to Access Health Informa tion Online using Patient Portal and [employer] Apps Indication:Dry mouth Start:13-Mar-2021 Instruction Type:Patient Education Patient Instructions Indication:B12 nutritional deficiency Start:02-Dec-2020 Instruction Type:Provider Instructions for Treatment How to Access Health Informa tion Online using Patient Portal and [employer] Apps Indication:Smoker Start:02-Dec-2020 Instruction Type:Patient Education Patient [...] tion Online using Patient Portal and [employer] Apps Indication:Hypothyroid Start:15-Dec-2021 Instruction Type:Patient Education Patient Instructions Indication:Smoker Start:15-Aug-2021 Instruction Type:Provider Instructions for Treatment How to Access Health Informa tion Online using Patient Portal and [employer] Apps Indication:Smoker Start:15-Aug-2021 Instruction Type:Patient Education Patient Instructions Indication:BMI 20.0-20.9, adult Start:26-Jul-2021 Instruction Type:Provider Instructions for Treatment How to Access Health Informa tion Online using Patient Portal and [employer] Apps Indication:BMI 20.0-20.9, adult Start:26-Jul-2021 Instruction Type:Patient Education Patient Instructions Indication:Dry mouth Start:13-Mar-2021 Instruction Type:Provider Instructions for Treatment How to Access Health Informa tion Online using Patient Portal and [employer] Apps Indication:Dry mouth Start:13-Mar-2021 Instruction Type:Patient Education Patient Instructions Indication:B12 nutritional deficiency Start:02-Dec-2020 Instruction Type:Provider Instructions for Treatment How to Access Health Informa tion Online using Patient Portal and [employer] Apps Indication:Smoker Start:02-Dec-2020 Instruction Type:Patient Education Patient [...] tion Online using Patient Portal and [employer] Apps Indication:BMI less than 19,adult Start:15-Feb-2022 Instruction Type:Patient Education Patient Instructions Indication:Hypothyroid Start:15-Dec-2021 Instruction Type:Provider Instructions for Treatment How to Access Health Informa tion Online using Patient Portal and [employer]rd [employer] Apps Indication:Hypothyroid Start:15-Dec-2021 Instruction Type:Patient Education Patient Instructions Indication:Smoker Start:15-Aug-2021 Instruction Type:Provider Instructions for Treatment How to Access Health Informa tion Online using Patient Portal and [employer] Apps Indication:Smoker Start:15-Aug-2021 Instruction Type:Patient Education Patient Instructions Indication:BMI 20.0-20.9, adult Start:26-Jul-2021 Instruction Type:Provider Instructions for Treatment How to Access Health Informa tion Online using Patient Portal and [employer] Apps Indication:BMI 20.0-20.9, adult Start:26-Jul-2021 Instruction Type:Patient Education Patient Instructions Indication:Dry mouth Start:13-Mar-2021 Instruction Type:Provider Instructions for Treatment How to Access Health Informa tion Online using Patient Portal and [employer] Apps Indication:Dry mouth Start:13-Mar-2021 Instruction Type:Patient Education Patient Instructions Indication:B12 nutritional deficiency Start:02-Dec-2020 Instruction Type:Provider Instructions for Treatment How to Access Health Informa tion Online using Patient Portal and [employer] Apps Indication:Smoker Start:02-Dec-2020 Instruction Type:Patient Education Patient [...] tion Online using Patient Portal and [employer] Apps Indication:BMI less than 19,adult Start:15-Feb-2022 Instruction Type:Patient Education Patient Instructions Indication:Hypothyroid Start:15-Dec-2021 Instruction Type:Provider Instructions for Treatment How to Access Health Informa tion Online using Patient Portal and [employer] Apps Indication:Hypothyroid Start:15-Dec-2021 Instruction Type:Patient Education Patient Instructions Indication:Smoker Start:15-Aug-2021 Instruction Type:Provider Instructions for Treatment How to Access Health Informa tion Online using Patient Portal and [employer] Apps Indication:Smoker Start:15-Aug-2021 Instruction Type:Patient Education Patient Instructions Indication:BMI 20.0-20.9, adult Start:26-Jul-2021 Instruction Type:Provider Instructions for Treatment How to Access Health Informa tion Online using Patient Portal and [employer] Apps Indication:BMI 20.0-20.9, adult Start:26-Jul-2021 Instruction Type:Patient Education Patient Instructions Indication:Dry mouth Start:13-Mar-2021 Instruction Type:Provider Instructions for Treatment How to Access Health Informa tion Online using Patient Portal and [employer] Apps Indication:Dry mouth Start:13-Mar-2021 Instruction Type:Patient Education Patient Instructions Indication:B12 nutritional deficiency Start:02-Dec-2020 Instruction Type:Provider Instructions for Treatment How to Access Health Informa tion Online using Patient Portal and [employer] Apps Indication:Smoker Start:02-Dec-2020 Instruction Type:Patient Education Patient [...] tion Online using Patient Portal and [employer] Apps Indication:BMI less than 19,adult Start:15-Feb-2022 Instruction Type:Patient Education Patient Instructions Indication:Hypothyroid Start:15-Dec-2021 Instruction Type:Provider Instructions for Treatment How to Access Health Informa tion Online using Patient Portal and [employer] Apps Indication:Hypothyroid Start:15-Dec-2021 Instruction Type:Patient Education Patient Instructions Indication:Smoker Start:15-Aug-2021 Instruction Type:Provider Instructions for Treatment How to Access Health Informa tion Online using Patient Portal and [employer] Apps Indication:Smoker Start:15-Aug-2021 Instruction Type:Patient Education Patient Instructions Indication:BMI 20.0-20.9, adult Start:26-Jul-2021 Instruction Type:Provider Instructions for Treatment How to Access Health Informa tion Online using Patient Portal and [employer] Apps Indication:BMI 20.0-20.9, adult Start:26-Jul-2021 Instruction Type:Patient Education Patient Instructions Indication:Dry mouth Start:13-Mar-2021 Instruction Type:Provider Instructions for Treatment How to Access Health Informa tion Online using Patient Portal and [employer] Apps Indication:Dry mouth Start:13-Mar-2021 Instruction Type:Patient Education Patient Instructions Indication:B12 nutritional deficiency Start:02-Dec-2020 Instruction Type:Provider Instructions for Treatment How to Access Health Informa tion Online using Patient Portal and [employer] Apps Indication:Smoker Start:02-Dec-2020 Instruction Type:Patient Education Patient [...] tion Online using Patient Portal and [employer] Apps Indication:BMI less than 19,adult Start:15-Feb-2022 Instruction Type:Patient Education Patient Instructions Indication:Hypothyroid Start:15-Dec-2021 Instruction Type:Provider Instructions for Treatment How to Access Health Informa tion Online using Patient Portal and [employer] Apps Indication:Hypothyroid Start:15-Dec-2021 Instruction Type:Patient Education Patient Instructions Indication:Smoker Start:15-Aug-2021 Instruction Type:Provider Instructions for Treatment How to Access Health Informa tion Online using Patient Portal and [employer] Apps Indication:Smoker Start:15-Aug-2021 Instruction Type:Patient Education Patient Instructions Indication:BMI 20.0-20.9, adult Start:26-Jul-2021 Instruction Type:Provider Instructions for Treatment How to Access Health Informa tion Online using Patient Portal and [employer] Indication:BMI 20.0-20.9, adult Start:26-Jul-2021 Instruction Type:Patient Education Patient Instructions Indication:Dry mouth Start:13-Mar-2021 Instruction Type:Provider Instructions for Treatment How to Access Health Informa tion Online using Patient Portal and [employer] Apps Indication:Dry mouth Start:13-Mar-2021 Instruction Type:Patient Education Patient Instructions Indication:B12 nutritional deficiency Start:02-Dec-2020 Instruction Type:Provider Instructions for Treatment How to Access Health Informa tion Online using Patient Portal and [employer] Apps Indication:Smoker Start:02-Dec-2020 Instruction Type:Patient Education Patient [...] tion Online using Patient Portal and [employer] Apps Indication:BMI less than 19,adult Start:15-Feb-2022 Instruction Type:Patient Education Patient Instructions Indication:Hypothyroid Start:15-Dec-2021 Instruction Type:Provider Instructions for Treatment How to Access Health Informa tion Online using Patient Portal and [employer]rd [employer] Apps Indication:Hypothyroid Start:15-Dec-2021 Instruction Type:Patient Education Patient Instructions Indication:Smoker Start:15-Aug-2021 Instruction Type:Provider Instructions for Treatment How to Access Health Informa tion Online using Patient Portal and [employer]rd [employer] Apps Indication:Smoker Start:15-Aug-2021 Instruction Type:Patient Education Patient Instructions Indication:BMI 20.0-20.9, adult Start:26-Jul-2021 Instruction Type:Provider Instructions for Treatment How to Access Health Informa tion Online using Patient Portal and [employer]rd [employer] Apps Indication:BMI 20.0-20.9, adult Start:26-Jul-2021 Instruction Type:Patient Education Patient Instructions Indication:Dry mouth Start:13-Mar-2021 Instruction Type:Provider Instructions for Treatment How to Access Health Informa tion Online using Patient Portal and [employer]rd [employer] Apps Indication:Dry mouth Start:13-Mar-2021 Instruction Type:Patient Education Patient Instructions Indication:B12 nutritional deficiency Start:02-Dec-2020 Instruction Type:Provider Instructions for Treatment How to Access Health Informa tion Online using Patient Portal and [employer] Apps Indication:Smoker Start:02-Dec-2020 Instruction Type:Patient Education Patient [...] tion Online using Patient Portal and [employer]rd [employer] Apps Indication:BMI less than 19,adult Start:15-Feb-2022 Instruction Type:Patient Education Patient Instructions Indication:Hypothyroid Start:15-Dec-2021 Instruction Type:Provider Instructions for Treatment How to Access Health Informa tion Online using Patient Portal and [employer]rd [employer] Apps Indication:Hypothyroid Start:15-Dec-2021 Instruction Type:Patient Education Patient Instructions Indication:Smoker Start:15-Aug-2021 Instruction Type:Provider Instructions for Treatment How to Access Health Informa tion Online using Patient Portal and [employer]rd [employer] Apps Indication:Smoker Start:15-Aug-2021 Instruction Type:Patient Education Patient Instructions Indication:BMI 20.0-20.9, adult Start:26-Jul-2021 Instruction Type:Provider Instructions for Treatment How to Access Health Informa tion Online using Patient Portal and [employer] Apps Indication:BMI 20.0-20.9, adult Start:26-Jul-2021 Instruction Type:Patient Education Patient Instructions Indication:Dry mouth Start:13-Mar-2021 Instruction Type:Provider Instructions for Treatment How to Access Health Informa tion Online using Patient Portal and [employer] Apps Indication:Dry mouth Start:13-Mar-2021 Instruction Type:Patient Education Patient Instructions Indication:B12 nutritional deficiency Start:02-Dec-2020 Instruction Type:Provider Instructions for Treatment How to Access Health Informa tion Online using Patient Portal and [employer] Apps Indication:Smoker Start:02-Dec-2020 Instruction Type:Patient Education Patient [...] tion Online using Patient Portal and [employer]rd [employer] Apps Indication:BMI less than 19,adult Start:15-Feb-2022 Instruction Type:Patient Education Patient Instructions Indication:Hypothyroid Start:15-Dec-2021 Instruction Type:Provider Instructions for Treatment How to Access Health Informa tion Online using Patient Portal and [employer]rd [employer] Apps Indication:Hypothyroid Start:15-Dec-2021 Instruction Type:Patient Education Patient Instructions Indication:Smoker Start:15-Aug-2021 Instruction Type:Provider Instructions for Treatment How to Access Health Informa tion Online using Patient Portal and [employer] Apps Indication:Smoker Start:15-Aug-2021 Instruction Type:Patient Education Patient Instructions Indication:BMI 20.0-20.9, adult Start:26-Jul-2021 Instruction Type:Provider Instructions for Treatment How to Access Health Informa tion Online using Patient Portal and [employer] Apps Indication:BMI 20.0-20.9, adult Start:26-Jul-2021 Instruction Type:Patient Education Patient Instructions Indication:Dry mouth Start:13-Mar-2021 Instruction Type:Provider Instructions for Treatment How to Access Health Informa tion Online using Patient Portal and [employer] Apps Indication:Dry mouth Start:13-Mar-2021 Instruction Type:Patient Education Patient Instructions Indication:B12 nutritional deficiency Start:02-Dec-2020 Instruction Type:Provider Instructions for Treatment How to Access Health Informa tion Online using Patient Portal and [employer] Apps Indication:Smoker Start:02-Dec-2020 Instruction Type:Patient Education Patient [...] tion Online using Patient Portal and [employer] Apps Indication:BMI less than 19,adult Start:15-Feb-2022 Instruction Type:Patient Education Patient Instructions Indication:Hypothyroid Start:15-Dec-2021 Instruction Type:Provider Instructions for Treatment How to Access Health Informa tion Online using Patient Portal and [employer] Apps Indication:Hypothyroid Start:15-Dec-2021 Instruction Type:Patient Education Patient Instructions Indication:Smoker Start:15-Aug-2021 Instruction Type:Provider Instructions for Treatment How to Access Health Informa tion Online using Patient Portal and [employer] Apps Indication:Smoker Start:15-Aug-2021 Instruction Type:Patient Education Patient Instructions Indication:BMI 20.0-20.9, adult Start:26-Jul-2021 Instruction Type:Provider Instructions for Treatment How to Access Health Informa tion Online using Patient Portal and [employer] Apps Indication:BMI 20.0-20.9, adult Start:26-Jul-2021 Instruction Type:Patient Education Patient Instructions Indication:Dry mouth Start:13-Mar-2021 Instruction Type:Provider Instructions for Treatment How to Access Health Informa tion Online using Patient Portal and [employer] Apps Indication:Dry mouth Start:13-Mar-2021 Instruction Type:Patient Education Patient Instructions Indication:B12 nutritional deficiency Start:02-Dec-2020 Instruction Type:Provider Instructions for Treatment How to Access Health Informa tion Online using Patient Portal and [employer] Apps Indication:Smoker Start:02-Dec-2020 Instruction Type:Patient Education Patient [...] tion Online using Patient Portal and [employer] Apps Indication:BMI less than 19,adult Start:15-Feb-2022 Instruction Type:Patient Education Patient Instructions Indication:Hypothyroid Start:15-Dec-2021 Instruction Type:Provider Instructions for Treatment How to Access Health Informa tion Online using Patient Portal and [employer] Apps Indication:Hypothyroid Start:15-Dec-2021 Instruction Type:Patient Education Patient Instructions Indication:Smoker Start:15-Aug-2021 Instruction Type:Provider Instructions for Treatment How to Access Health Informa tion Online using Patient Portal and [employer] Apps Indication:Smoker Start:15-Aug-2021 Instruction Type:Patient Education Patient Instructions Indication:BMI 20.0-20.9, adult Start:26-Jul-2021 Instruction Type:Provider Instructions for Treatment How to Access Health Informa tion Online using Patient Portal and [employer] Apps Indication:BMI 20.0-20.9, adult Start:26-Jul-2021 Instruction Type:Patient Education Patient Instructions Indication:Dry mouth Start:13-Mar-2021 Instruction Type:Provider Instructions for Treatment How to Access Health Informa tion Online using Patient Portal and [employer] Apps Indication:Dry mouth Start:13-Mar-2021 Instruction Type:Patient Education Patient Instructions Indication:B12 nutritional deficiency Start:02-Dec-2020 Instruction Type:Provider Instructions for Treatment How to Access Health Informa tion Online using Patient Portal and [employer] Apps Indication:Smoker Start:02-Dec-2020 Instruction Type:Patient Education Patient [...] tion Online using Patient Portal and [employer] Apps Indication:BMI less than 19,adult Start:15-Feb-2022 Instruction Type:Patient Education Patient Instructions Indication:Hypothyroid Start:15-Dec-2021 Instruction Type:Provider Instructions for Treatment How to Access Health Informa tion Online using Patient Portal and [employer] Apps Indication:Hypothyroid Start:15-Dec-2021 Instruction Type:Patient Education Patient Instructions Indication:Smoker Start:15-Aug-2021 Instruction Type:Provider Instructions for Treatment How to Access Health Informa tion Online using Patient Portal and [employer] Apps Indication:Smoker Start:15-Aug-2021 Instruction Type:Patient Education Patient Instructions Indication:BMI 20.0-20.9, adult Start:26-Jul-2021 Instruction Type:Provider Instructions for Treatment How to Access Health Informa tion Online using Patient Portal and [employer] Apps Indication:BMI 20.0-20.9, adult Start:26-Jul-2021 Instruction Type:Patient Education Patient Instructions Indication:Dry mouth Start:13-Mar-2021 Instruction Type:Provider Instructions for Treatment How to Access Health Informa tion Online using Patient Portal and [employer] Apps Indication:Dry mouth Start:13-Mar-2021 Instruction Type:Patient Education Patient Instructions Indication:B12 nutritional deficiency Start:02-Dec-2020 Instruction Type:Provider Instructions for Treatment How to Access Health Informa tion Online using Patient Portal and [employer] Apps Indication:Smoker Start:02-Dec-2020 Instruction Type:Patient Education Patient [...] tion Online using Patient Portal and [employer] Apps Indication:BMI less than 19,adult Start:15-Feb-2022 Instruction Type:Patient Education Patient Instructions Indication:Hypothyroid Start:15-Dec-2021 Instruction Type:Provider Instructions for Treatment How to Access Health Informa tion Online using Patient Portal and [employer] Apps Indication:Hypothyroid Start:15-Dec-2021 Instruction Type:Patient Education Patient Instructions Indication:Smoker Start:15-Aug-2021 Instruction Type:Provider Instructions for Treatment How to Access Health Informa tion Online using Patient Portal and [employer] Apps Indication:Smoker Start:15-Aug-2021 Instruction Type:Patient Education Patient Instructions Indication:BMI 20.0-20.9, adult Start:26-Jul-2021 Instruction Type:Provider Instructions for Treatment How to Access Health Informa tion Online using Patient Portal and [employer] Apps Indication:BMI 20.0-20.9, adult Start:26-Jul-2021 Instruction Type:Patient Education Patient Instructions Indication:Dry mouth Start:13-Mar-2021 Instruction Type:Provider Instructions for Treatment How to Access Health Informa tion Online using Patient Portal and [employer] Apps Indication:Dry mouth Start:13-Mar-2021 Instruction Type:Patient Education Patient Instructions Indication:B12 nutritional deficiency Start:02-Dec-2020 Instruction Type:Provider Instructions for Treatment How to Access Health Informa tion Online using Patient Portal and [employer] Apps Indication:Smoker Start:02-Dec-2020 Instruction Type:Patient Education Patient [...] tion Online using Patient Portal and [employer] Apps Indication:BMI less than 19,adult Start:15-Feb-2022 Instruction Type:Patient Education Patient Instructions Indication:Hypothyroid Start:15-Dec-2021 Instruction Type:Provider Instructions for Treatment How to Access Health Informa tion Online using Patient Portal and [employer] Apps Indication:Hypothyroid Start:15-Dec-2021 Instruction Type:Patient Education Patient Instructions Indication:Smoker Start:15-Aug-2021 Instruction Type:Provider Instructions for Treatment How to Access Health Informa tion Online using Patient Portal and [employer] Apps Indication:Smoker Start:15-Aug-2021 Instruction Type:Patient Education Patient Instructions Indication:BMI 20.0-20.9, adult Start:26-Jul-2021 Instruction Type:Provider Instructions for Treatment How to Access Health Informa tion Online using Patient Portal and [employer] Apps Indication:BMI 20.0-20.9, adult Start:26-Jul-2021 Instruction Type:Patient Education Patient Instructions Indication:Dry mouth Start:13-Mar-2021 Instruction Type:Provider Instructions for Treatment How to Access Health Informa tion Online using Patient Portal and [employer] Apps Indication:Dry mouth Start:13-Mar-2021 Instruction Type:Patient Education Patient Instructions Indication:B12 nutritional deficiency Start:02-Dec-2020 Instruction Type:Provider Instructions for Treatment How to Access Health Informa tion Online using Patient Portal and [employer] Apps Indication:Smoker Start:02-Dec-2020 Instruction Type:Patient Education Patient [...] tion Online using Patient Portal and [employer] Apps Indication:BMI less than 19,adult Start:15-Feb-2022 Instruction Type:Patient Education Patient Instructions Indication:Hypothyroid Start:15-Dec-2021 Instruction Type:Provider Instructions for Treatment How to Access Health Informa tion Online using Patient Portal and [employer] Apps Indication:Hypothyroid Start:15-Dec-2021 Instruction Type:Patient Education Patient Instructions Indication:Smoker Start:15-Aug-2021 Instruction Type:Provider Instructions for Treatment How to Access Health Informa tion Online using Patient Portal and [employer] Apps Indication:Smoker Start:15-Aug-2021 Instruction Type:Patient Education Patient Instructions Indication:BMI 20.0-20.9, adult Start:26-Jul-2021 Instruction Type:Provider Instructions for Treatment How to Access Health Informa tion Online using Patient Portal and [employer] Apps Indication:BMI 20.0-20.9, adult Start:26-Jul-2021 Instruction Type:Patient Education Patient Instructions Indication:Dry mouth Start:13-Mar-2021 Instruction Type:Provider Instructions for Treatment How to Access Health Informa tion Online using Patient Portal and [employer] Apps Indication:Dry mouth Start:13-Mar-2021 Instruction Type:Patient Education Patient Instructions Indication:B12 nutritional deficiency Start:02-Dec-2020 Instruction Type:Provider Instructions for Treatment How to Access Health Informa tion Online using Patient Portal and [employer] Apps Indication:Smoker Start:02-Dec-2020 Instruction Type:Patient Education Patient [...] tion Online using Patient Portal and [employer] Indication:BMI less than 19,adult Start:15-Feb-2022 Instruction Type:Patient Education Patient Instructions Indication:Hypothyroid Start:15-Dec-2021 Instruction Type:Provider Instructions for Treatment How to Access Health Informa tion Online using Patient Portal and [employer] Apps Indication:Hypothyroid Start:15-Dec-2021 Instruction Type:Patient Education Patient Instructions Indication:Smoker Start:15-Aug-2021 Instruction Type:Provider Instructions for Treatment How to Access Health Informa tion Online using Patient Portal and [employer] Apps Indication:Smoker Start:15-Aug-2021 Instruction Type:Patient Education Patient Instructions Indication:BMI 20.0-20.9, adult Start:26-Jul-2021 Instruction Type:Provider Instructions for Treatment How to Access Health Informa tion Online using Patient Portal and [employer] Apps Indication:BMI 20.0-20.9, adult Start:26-Jul-2021 Instruction Type:Patient Education Patient Instructions Indication:Dry mouth Start:13-Mar-2021 Instruction Type:Provider Instructions for Treatment How to Access Health Informa tion Online using Patient Portal and [employer] Apps Indication:Dry mouth Start:13-Mar-2021 Instruction Type:Patient Education Patient Instructions Indication:B12 nutritional deficiency Start:02-Dec-2020 Instruction Type:Provider Instructions for Treatment How to Access Health Informa tion Online using Patient Portal and [employer] Apps Indication:Smoker Start:02-Dec-2020 Instruction Type:Patient Education Patient [...] tion Online using Patient Portal and [employer] Apps Indication:BMI less than 19,adult Start:15-Feb-2022 Instruction Type:Patient Education Patient Instructions Indication:Hypothyroid Start:15-Dec-2021 Instruction Type:Provider Instructions for Treatment How to Access Health Informa tion Online using Patient Portal and [employer] Apps Indication:Hypothyroid Start:15-Dec-2021 Instruction Type:Patient Education Patient Instructions Indication:Smoker Start:15-Aug-2021 Instruction Type:Provider Instructions for Treatment How to Access Health Informa tion Online using Patient Portal and [employer] Apps Indication:Smoker Start:15-Aug-2021 Instruction Type:Patient Education Patient Instructions Indication:BMI 20.0-20.9, adult Start:26-Jul-2021 Instruction Type:Provider Instructions for Treatment How to Access Health Informa tion Online using Patient Portal and [employer] Apps Indication:BMI 20.0-20.9, adult Start:26-Jul-2021 Instruction Type:Patient Education Patient Instructions Indication:Dry mouth Start:13-Mar-2021 Instruction Type:Provider Instructions for Treatment How to Access Health Informa tion Online using Patient Portal and [employer] Apps Indication:Dry mouth Start:13-Mar-2021 Instruction Type:Patient Education Patient Instructions Indication:B12 nutritional deficiency Start:02-Dec-2020 Instruction Type:Provider Instructions for Treatment How to Access Health Informa tion Online using Patient Portal and [employer] Apps Indication:Smoker Start:02-Dec-2020 Instruction Type:Patient Education Patient [...] tion Online using Patient Portal and [employer] Apps Indication:Tobacco abuse, in remission Start:16-Jan-2023 Instruction Type:Patient Education Patient Instructions Indication:BMI less than 19,adult Start:15-Feb-2022 Instruction Type:Provider Instructions for Treatment How to Access Health Informa tion Online using Patient Portal and [employer] Apps Indication:BMI less than 19,adult Start:15-Feb-2022 Instruction Type:Patient Education Patient Instructions Indication:Hypothyroid Start:15-Dec-2021 Instruction Type:Provider Instructions for Treatment How to Access Health Informa tion Online using Patient Portal and [employer] Apps Indication:Hypothyroid Start:15-Dec-2021 Instruction Type:Patient Education Patient Instructions Indication:Smoker Start:15-Aug-2021 Instruction Type:Provider Instructions for Treatment How to Access Health Informa tion Online using Patient Portal and [employer] Apps Indication:Smoker Start:15-Aug-2021 Instruction Type:Patient Education Patient Instructions Indication:BMI 20.0-20.9, adult Start:26-Jul-2021 Instruction Type:Provider Instructions for Treatment How to Access Health Informa tion Online using Patient Portal and [employer] Indication:BMI 20.0-20.9, adult Start:26-Jul-2021 Instruction Type:Patient Education Patient Instructions Indication:Dry mouth Start:13-Mar-2021 Instruction Type:Provider Instructions for Treatment How to Access Health Informa tion Online using Patient Portal and [employer] Apps Indication:Dry mouth Start:13-Mar-2021 Instruction Type:Patient Education Patient Instructions Indication:B12 nutritional deficiency Start:02-Dec-2020 Instruction Type:Provider Instructions for Treatment How to Access Health Informa tion Online using Patient Portal and [employer] Apps Indication:Smoker Start:02-Dec-2020 Instruction Type:Patient Education Patient [...] tion Online using Patient Portal and [employer] Apps Indication:Tobacco abuse, in remission Start:16-Jan-2023 Instruction Type:Patient Education Patient Instructions Indication:BMI less than 19,adult Start:15-Feb-2022 Instruction Type:Provider Instructions for Treatment How to Access Health Informa tion Online using Patient Portal and [employer] Apps Indication:BMI less than 19,adult Start:15-Feb-2022 Instruction Type:Patient Education Patient Instructions Indication:Hypothyroid Start:15-Dec-2021 Instruction Type:Provider Instructions for Treatment How to Access Health Informa tion Online using Patient Portal and [employer] Indication:Hypothyroid Start:15-Dec-2021 Instruction Type:Patient Education Patient Instructions Indication:Smoker Start:15-Aug-2021 Instruction Type:Provider Instructions for Treatment How to Access Health Informa tion Online using Patient Portal and [employer] Indication:Smoker Start:15-Aug-2021 Instruction Type:Patient Education Patient Instructions Indication:BMI 20.0-20.9, adult Start:26-Jul-2021 Instruction Type:Provider Instructions for Treatment How to Access Health Informa tion Online using Patient Portal and [employer] Indication:BMI 20.0-20.9, adult Start:26-Jul-2021 Instruction Type:Patient Education Patient Instructions Indication:Dry mouth Start:13-Mar-2021 Instruction Type:Provider Instructions for Treatment How to Access Health Informa tion Online using Patient Portal and [employer] Indication:Dry mouth Start:13-Mar-2021 Instruction Type:Patient Education Patient Instructions Indication:B12 nutritional deficiency Start:02-Dec-2020 Instruction Type:Provider Instructions for Treatment How to Access Health Informa tion Online using Patient Portal and [employer] Indication:Smoker Start:02-Dec-2020 Instruction Type:Patient Education Patient [...] tion Online using Patient Portal and [employer] Indication:Tobacco abuse, in remission Start:16-Jan-2023 Instruction Type:Patient Education Patient Instructions Indication:BMI less than 19,adult Start:15-Feb-2022 Instruction Type:Provider Instructions for Treatment How to Access Health Informa tion Online using Patient Portal and [employer] Indication:BMI less than 19,adult Start:15-Feb-2022 Instruction Type:Patient Education Patient Instructions Indication:Hypothyroid Start:15-Dec-2021 Instruction Type:Provider Instructions for Treatment How to Access Health Informa tion Online using Patient Portal and [employer] Indication:Hypothyroid Start:15-Dec-2021 Instruction Type:Patient Education Patient Instructions Indication:Smoker Start:15-Aug-2021 Instruction Type:Provider Instructions for Treatment How to Access Health Informa tion Online using Patient Portal and [employer] Indication:Smoker Start:15-Aug-2021 Instruction Type:Patient Education Patient Instructions Indication:BMI 20.0-20.9, adult Start:26-Jul-2021 Instruction Type:Provider Instructions for Treatment How to Access Health Informa tion Online using Patient Portal and [employer] Indication:BMI 20.0-20.9, adult Start:26-Jul-2021 Instruction Type:Patient Education Patient Instructions Indication:Dry mouth Start:13-Mar-2021 Instruction Type:Provider Instructions for Treatment How to Access Health Informa tion Online using Patient Portal and [employer] Indication:Dry mouth Start:13-Mar-2021 Instruction Type:Patient Education Patient Instructions Indication:B12 nutritional deficiency Start:02-Dec-2020 Instruction Type:Provider Instructions for Treatment How to Access Health Informa tion Online using Patient Portal and [employer] Apps Indication:Smoker Start:02-Dec-2020 Instruction Type:Patient Education Patient [...] tion Online using Patient Portal and [employer] Indication:Tobacco abuse, in remission Start:16-Jan-2023 Instruction Type:Patient Education Patient Instructions Indication:BMI less than 19,adult Start:15-Feb-2022 Instruction Type:Provider Instructions for Treatment How to Access Health Informa tion Online using Patient Portal and [employer] Indication:BMI less than 19,adult Start:15-Feb-2022 Instruction Type:Patient Education Patient Instructions Indication:Hypothyroid Start:15-Dec-2021 Instruction Type:Provider Instructions for Treatment How to Access Health Informa tion Online using Patient Portal and [employer]rd [employer] Apps Indication:Hypothyroid Start:15-Dec-2021 Instruction Type:Patient Education Patient Instructions Indication:Smoker Start:15-Aug-2021 Instruction Type:Provider Instructions for Treatment How to Access Health Informa tion Online using Patient Portal and 3rd [employer] Apps Indication:Smoker Start:15-Aug-2021 Instruction Type:Patient Education Patient Instructions Indication:BMI 20.0-20.9, adult Start:26-Jul-2021 Instruction Type:Provider Instructions for Treatment How to Access Health Informa tion Online using Patient Portal and 3rd [employer] Apps Indication:BMI 20.0-20.9, adult Start:26-Jul-2021 Instruction Type:Patient Education Patient Instructions Indication:Dry mouth Start:13-Mar-2021 Instruction Type:Provider Instructions for Treatment How to Access Health Informa tion Online using Patient Portal and 3rd [employer] Apps Indication:Dry mouth Start:13-Mar-2021 Instruction Type:Patient Education Patient Instructions Indication:B12 nutritional deficiency Start:02-Dec-2020 Instruction Type:Provider Instructions for Treatment How to Access Health Informa tion Online using Patient Portal and 3rd [employer] Apps Indication:Smoker Start:02-Dec-2020 Instruction Type:Patient Education Patient [...] tion Online using Patient Portal and 3rd [employer] Apps Indication:Tobacco abuse, in remission Start:16-Jan-2023 Instruction Type:Patient Education Patient Instructions Indication:BMI less than 19,adult Start:15-Feb-2022 Instruction Type:Provider Instructions for Treatment How to Access Health Informa tion Online using Patient Portal and 3rd [employer] Apps Indication:BMI less than 19,adult Start:15-Feb-2022 Instruction Type:Patient Education Patient Instructions Indication:Hypothyroid Start:15-Dec-2021 Instruction Type:Provider Instructions for Treatment How to Access Health Informa tion Online using Patient Portal and 3rd [employer] Apps Indication:Hypothyroid Start:15-Dec-2021 Instruction Type:Patient Education Patient Instructions Indication:Smoker Start:15-Aug-2021 Instruction Type:Provider Instructions for Treatment How to Access Health Informa tion Online using Patient Portal and 3rd [employer] Apps Indication:Smoker Start:15-Aug-2021 Instruction Type:Patient Education Patient Instructions Indication:BMI 20.0-20.9, adult Start:26-Jul-2021 Instruction Type:Provider Instructions for Treatment How to Access Health Informa tion Online using Patient Portal and 3rd [employer] Apps Indication:BMI 20.0-20.9, adult Start:26-Jul-2021 Instruction Type:Patient Education Patient Instructions Indication:Dry mouth Start:13-Mar-2021 Instruction Type:Provider Instructions for Treatment How to Access Health Informa tion Online using Patient Portal and 3rd [employer] Apps Indication:Dry mouth Start:13-Mar-2021 Instruction Type:Patient Education Patient Instructions Indication:B12 nutritional deficiency Start:02-Dec-2020 Instruction Type:Provider Instructions for Treatment How to Access Health Informa tion Online using Patient Portal and 3rd [employer] Apps Indication:Smoker Start:02-Dec-2020 Instruction Type:Patient Education Patient [...] tion Online using Patient Portal and 3rd [employer] Apps Indication:Tobacco abuse, in remission Start:16-Jan-2023 Instruction Type:Patient Education Patient Instructions Indication:BMI less than 19,adult Start:15-Feb-2022 Instruction Type:Provider Instructions for Treatment How to Access Health Informa tion Online using Patient Portal and 3rd [employer] Apps Indication:BMI less than 19,adult Start:15-Feb-2022 Instruction Type:Patient Education Patient Instructions Indication:Hypothyroid Start:15-Dec-2021 Instruction Type:Provider Instructions for Treatment How to Access Health Informa tion Online using Patient Portal and 3rd [employer] Apps Indication:Hypothyroid Start:15-Dec-2021 Instruction Type:Patient Education Patient Instructions Indication:Smoker Start:15-Aug-2021 Instruction Type:Provider Instructions for Treatment How to Access Health Informa tion Online using Patient Portal and 3rd [employer] Apps Indication:Smoker Start:15-Aug-2021 Instruction Type:Patient Education Patient Instructions Indication:BMI 20.0-20.9, adult Start:26-Jul-2021 Instruction Type:Provider Instructions for Treatment How to Access Health Informa tion Online using Patient Portal and 3rd [employer] Apps Indication:BMI 20.0-20.9, adult Start:26-Jul-2021 Instruction Type:Patient Education Patient Instructions Indication:Dry mouth Start:13-Mar-2021 Instruction Type:Provider Instructions for Treatment How to Access Health Informa tion Online using Patient Portal and 3rd [employer] Apps Indication:Dry mouth Start:13-Mar-2021 Instruction Type:Patient Education Patient Instructions Indication:B12 nutritional deficiency Start:02-Dec-2020 Instruction Type:Provider Instructions for Treatment How to Access Health Informa tion Online using Patient Portal and 3rd [employer] Apps Indication:Smoker Start:02-Dec-2020 Instruction Type:Patient Education Patient [...] tion Online using Patient Portal and 3rd [employer] Apps Indication:BMI 20.0-20.9, adult Start:22-Jul-2023 Instruction Type:Patient Education Patient Instructions Indication:Tobacco abuse, in remission Start:16-Jan-2023 Instruction Type:Provider Instructions for Treatment How to Access Health Informa tion Online using Patient Portal and [employer] Apps Indication:Tobacco abuse, in remission Start:16-Jan-2023 Instruction Type:Patient Education Patient Instructions Indication:BMI less than 19,adult Start:15-Feb-2022 Instruction Type:Provider Instructions for Treatment How to Access Health Informa tion Online using Patient Portal and 3rd [employer] Apps Indication:BMI less than 19,adult Start:15-Feb-2022 Instruction Type:Patient Education Patient Instructions Indication:Hypothyroid Start:15-Dec-2021 Instruction Type:Provider Instructions for Treatment How to Access Health Informa tion Online using Patient Portal and 3rd [employer] Apps Indication:Hypothyroid Start:15-Dec-2021 Instruction Type:Patient Education Patient Instructions Indication:Smoker Start:15-Aug-2021 Instruction Type:Provider Instructions for Treatment How to Access Health Informa tion Online using Patient Portal and [employer] Apps Indication:Smoker Start:15-Aug-2021 Instruction Type:Patient Education Patient Instructions Indication:BMI 20.0-20.9, adult Start:26-Jul-2021 Instruction Type:Provider Instructions for Treatment How to Access Health Informa tion Online using Patient Portal and [employer] Apps Indication:BMI 20.0-20.9, adult Start:26-Jul-2021 Instruction Type:Patient Education Patient Instructions Indication:Dry mouth Start:13-Mar-2021 Instruction Type:Provider Instructions for Treatment How to Access Health Informa tion Online using Patient Portal and [employer]rd [employer] Apps Indication:Dry mouth Start:13-Mar-2021 Instruction Type:Patient Education Patient Instructions Indication:B12 nutritional deficiency Start:02-Dec-2020 Instruction Type:Provider Instructions for Treatment How to Access Health Informa tion Online using Patient Portal and 3rd [employer] Apps Indication:Smoker Start:02-Dec-2020 Instruction Type:Patient Education Patient [...] Reason for Referral: [facility] for [facility]No reason for referral information availableWCleveland Clinic Foundation Work Phone: Instructions Name Dates Details BMI [...] tion Online using Patient Portal and 3rd [employer] Apps Indication:Smoker Start:02-Dec-2020 Instruction Type:Patient Education Patient [...] nt Instructions Indication:BMI 23.0-23.9, adult Family History Family Member Condition Father Mother No Family History Records FoundUnknown Family Member [...] scans FLOOR OF MOUTH SQUAMOUS CELL CARCINOMA LOADER MAGAZINE GRINDER DYSPHAGIA Reason for Visit Head and neck cancer Lung nodules Floor of mouth squamous cell carcinoma Esophageal dysphagia Chief Complaint CANCER 6 month f/u H/N review CT scans FLOOR OF MOUTH SQUAMOUS CELL CARCINOMA LOADER MAGAZINE GRINDER DYSPHAGIA MALIGNANT NEOPLASM OF MANDIBLE/RX HERE Reason [...] BLE; PARESTHESIA March 31, 2025 3:30p m Reason for Visit Admit Date Head and neck cancer January 05, 2025 10 :58am Lung nodules January 05, 2025 10: 58am Regional lymph node metastasis present A pril 2024 10:58am History of head and neck cancer January 9:28am Esophageal dysphagia February 11, 2025 7:56 am Esophageal dysphagia April 15, 2025 7:1 3am Chief Complaint Admit Date Paresthesia of skin March 03, 2025 1:45 pm Paresthesia of skin March 03, 2025 3:19 pm BLE; PARESTHESIA March 31, 2025 7:02a m BLE; PARESTHESIA March 31, 2025 3:30p m FLOOR OF MOUTH SQUAMOUS CELL/RX SCANNED IN May 14, 2025 10:00am Reason for Visit Admit Date Esophageal dysphagia April 15, 2025 7:1 3am Advance Directives No Advanced Directives Records Found Advance Directive Response Recorded Date/ Time Advance Directives on File Yes 2018 1:06pm Advance Directives No December 07, 2 022 2:14pm Living Will Yes December 10, 2021 5:19pm Power of Wafer Abrading Machine Tender No December 10 5:19pm Advance Directive Response Recorded Date/ Time Advance Directives on File Yes 2018 1:06pm Advance Directives No December 07, 2 022 2:14pm Living Will No December 15, 2021 12:08pm Power of Wafer Abrading Machine Tender No December 15 12:08pm Advance Directive Response Recorded Date/ Time Advance Directives No December 20 10:23am Living Will No December 20, 2021 10:23am Power of Wafer Abrading Machine Tender No December 20 10:23am Advance Directive Response Recorded Date/ Time Advance Directives No January 10 11:06am Living Will No January 10, 2022 11:06am Power of Wafer Abrading Machine Tender No January 10 11:06am Advance Directive Response Recorded Date/ Time Advance Directives on File Yes January 17, 2022 9:59am Advance Directives No January 17 9:59am Living Will No January 22, 2022 10 :45pm Power of Wafer Abrading Machine Tender No January 22, 2022 10:45pm Advance Directive Response Recorded Date/ Time Advance Directives No January 31 9:09am Living Will No January 31, 2022 9 :09am Power of Wafer Abrading Machine Tender No January 31, 2022 9:09am Advance Directives on File Yes January 17, 2022 9:59am Advance Directive Response Recorded Date/ Time Advance Directives on File Yes January 17, 2022 9:59am Advance Directives No January 31 9:09am Living Will No January 31, 2022 9 :09am Power of Wafer Abrading Machine Tender No January 31, 2022 9:09am Advance Directive Response Recorded Date/ Time Advance Directives on File Yes January 17, 2022 8:59am Advance Directives No January 31 8:09am Living Will No January 31, 2022 8 :09am Power of Wafer Abrading Machine Tender No January 31, 2022 8:09am Advance Directive Response Recorded Date/ Time Advance Directives No January 31 8:09am Living Will No January 31, 2022 8 :09am Power of Wafer Abrading Machine Tender No January 31, 2022 8:09am Advance Directive Response Recorded Date/ Time Advance Directives No January 31 9:09am Living Will No January 31, 2022 9 :09am Power of Wafer Abrading Machine Tender No January 31, 2022 9:09am Advance Directive Response Recorded Date/ Time Name of Medical Power of Wafer Abrading Machine Tender DAUGHTER September 02, 2023 9:21am Advance Directives No January 31 8:09am Living Will Yes September 02 023 9:21am Power of Wafer Abrading Machine Tender Yes September 02, 2023 9:21am Advance Directive Response Recorded Date/ Time Living Will Yes February 13, 2024 1 0:29am Do you have a Healthcare Power of Wafer Abrading Machine Tender? Yes February 13, 2024 10:29am Living Will Yes October 20 12:36pm Do you have a Healthcare Power of Wafer Abrading Machine Tender? Yes October 20, 2024 12:36pm Name of Medical Power of Wafer Abrading Machine Tender DAUGHTER October 20, 2024 12:36pm Advance Directives No January 31 9:09am Advance Directive Response Recorded Date/ Time Living Will Yes February 13, 2024 1 0:29am Do you have a Healthcare Power of Wafer Abrading Machine Tender? Yes February 13, 2024 10:29am Advance Directives No January 31 9:09am Advance Directive Response Recorded Date/ Time Living Will Yes February 13, 2024 1 0:29am Do you have a Healthcare Power of Wafer Abrading Machine Tender? Yes February 13, 2024 10:29am Do you have a Healthcare Power of Wafer Abrading Machine Tender? 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) Procedures XR chest 2 [place] [id number] [facility] [place] [address] Referral ID Status Reason Start Date Expiration Date Visits Requested Visits Authorized [id number] Authorized Perform Procedure 3 09/01/2024 1 1 [...] may be documented in an alternate section No Information Available (unrecognized sect ion and content) No Status Records FoundNo Status Records FoundNo Status Records FoundNo Status Records FoundNo Status Records FoundNo Status Records FoundNo Status Records Found INFORMATION SOURCE (unrecogn ized section and content) DATE CREATED AUTHOR 12/14/2021 [facility] DATE CREATED AUTHOR AUTHOR'S ORGANIZ ATION 01/17/2023 [facility] DATE CREATED AUTHOR AUTHOR'S ORGANIZ ATION 04/26/2023 [facility] DATE CREATED AUTHOR AUTHOR'S ORGANIZ ATION 04/26/2023 [facility] DATE CREATED AUTHOR AUTHOR'S ORGANIZ ATION 08/08/2024 [facility] DATE CREATED AUTHOR AUTHOR'S ORGANIZ ATION 06/15/2025 [facility] DATE CREATED AUTHOR AUTHOR[facility]S [facility]GANIZ ATION [facility] Teams (unrecognized sec tion and content) Team Status: Active Member Role Status Dates Kya Katharinaa LOADER MAGAZINE GRINDER, LOADER MAGAZINE GRINDER-C Family Provider Active Kya Posadasa LOADER MAGAZINE GRINDER, LOADER MAGAZINE GRINDER-C Primary Care Provider Active Team Status: Inactive Member Role Status Dates Kya Posadasa LOADER MAGAZINE GRINDER, LOADER MAGAZINE GRINDER-C Primary Care Provider Active Dr. Santiago Sellers DO Attending Provider Active Team Status: Active Member Role Status Dates Kya Katharinaa LOADER MAGAZINE GRINDER, LOADER MAGAZINE GRINDER-C Primary Care Provider Active Joya Galvez LOADER MAGAZINE GRINDER, LOADER MAGAZINE GRINDER-C Attending Provider, Other Pro vider Active Team Status: Active Member Role Status Dates Kya Monica LOADER MAGAZINE GRINDER, LOADER MAGAZINE GRINDER-C Primary Care Provider Active Joya Galvez LOADER MAGAZINE GRINDER, LOADER MAGAZINE GRINDER-C Attending Provi brittany, Referring Provider, Other Provider Active Team Status: Active Member Role Status Dates Kya Katharinaa LOADER MAGAZINE GRINDER, LOADER MAGAZINE GRINDER-C Primary Care Provider Active Dr. Santiago Sellers DO Attending Provider, Referring P rovider Active Team Status: Inactive Member Role Status Dates Kya Riveroesa LOADER MAGAZINE GRINDER, LOADER MAGAZINE GRINDER-C Primary Care Provider Active Dr. Quincy Simpsno MD Attending Provider Active Team Status: Inactive Member Role Status Dates Kya Josefaesa LOADER MAGAZINE GRINDER, LOADER MAGAZINE GRINDER-C Primary Care Provider Active Joya Galvez LOADER MAGAZINE GRINDER, LOADER MAGAZINE GRINDER-C Attending Provider, Referring Provider Active Team Status: Inactive Member Role Status Dates Kya Riveroesa LOADER MAGAZINE GRINDER, LOADER MAGAZINE GRINDER-C Primary Care Provider, Referring P rovider Active Dr. Quincy Simpson MD Attending Provider Active Team Status: Active Member Role Status Dates Kya Posadasa LOADER MAGAZINE GRINDER, LOADER MAGAZINE GRINDER-C Primary Care Provide r, Family Provider, Referring Provider Active Dr. Quincy Simpson MD Attending Provider Active Dr. Santiago Sellers DO Active Marce Maxwell LOADER MAGAZINE GRINDER, LOADER MAGAZINE GRINDER-C Active Team Status: Inactive Member Role Status Dates Kya Posadasa LOADER MAGAZINE GRINDER, LOADER MAGAZINE GRINDER-C Primary Care Provider, Referring P rovider Active Dr. Santiago Verito , DO Attending Provider Active Team Status: Inactive Member Role Status Dates Dr. Santiago Sellers , Attending Provider, Referring P rovider Active Sadie Santiago , LOADER MAGAZINE GRINDER-C Primary Care Provider Active Team Status: Active Member Role Status Dates Kya Posadaschioma LOADER MAGAZINE GRINDER, LOADER MAGAZINE GRINDER-C Primary Care Provider Active Joya Galvez LOADER MAGAZINE GRINDER, LOADER MAGAZINE GRINDER-C Attending Provider, Referring Provider Active Team Status: Inactive Member Role Status Dates Kya Posadasa LOADER MAGAZINE GRINDER, LOADER MAGAZINE GRINDER-C Primary Care Provider Active Dr. Quincy Simpson MD Attending Provider, Referrin g Provider Active Machine Wedger Relationship Specialty Start Date End Date Kya Gonzalez, JOB DEVELOPER FOR DEAF ADULTS-PHYSICIST SOLID EARTH, JOB DEVELOPER FOR DEAF ADULTS-POLLS OR SURVEYS INTERVIEWER [id number] [place] [phone] PCP - General 01/19/19 Jeana Gaspar DO [id number] [facility] [address] [place], [place] [id number] PCP - [facility] PCP 09/23/21 Team Status: Inactive Member Role Status Dates Kya Posadaschioma LOADER MAGAZINE GRINDER, LOADER MAGAZINE GRINDER-C Primary Care Provider, Referring P rovider Active Dr. Elliott Akhtar , DO Attending Provider Active Team Status: Active Member Role Status Dates Kya Posadasa LOADER MAGAZINE GRINDER, LOADER MAGAZINE GRINDER-C Primary Care Provider, Referring P rovider Active Dr. Elliott Akhtar , Attending Provider, Other Prov ider Active Team Status: Inactive Member Role Status Dates Kya Riveroesa LOADER MAGAZINE GRINDER, LOADER MAGAZINE GRINDER-C Primary Care Provider Active Dr. Santiago Sellers , Attending Provider, Referring P rovider Active Machine Wedger Relationship Specialty Start Date End Date Kya Gonzalez, JOB DEVELOPER FOR DEAF ADULTS-PHYSICIST SOLID EARTH, JOB DEVELOPER FOR DEAF ADULTS-POLLS OR SURVEYS INTERVIEWER [id number] [place] [id number] PCP - General 01/19/19 Jeana Gaspar DO [address] [facility] [address] [place], [place] [id number] [facility] Machine Wedger Relationship Specialty Start Date End Date Kya Gonzalez, JOB DEVELOPER FOR DEAF ADULTS-PHYSICIST SOLID EARTH, JOB DEVELOPER FOR DEAF ADULTS-POLLS OR SURVEYS INTERVIEWER [id number] [place] [phone] PCP - General 01/19/19 Jeana Gaspar, [address] [facility] [address] [place] [address] PCP - [facility] PCP 09/23/21 Machine Wedger Relationship Specialty Start Date End Date Kya Gonzalez, JOB DEVELOPER FOR DEAF ADULTS-PHYSICIST SOLID EARTH, JOB DEVELOPER FOR DEAF ADULTS-POLLS OR SURVEYS INTERVIEWER [id number] [place] [phone] PCP - General 01/19/19 Jeana Gaspar, [address] [facility] [address] [place] [address] [facility]21 Team Status: Active Member Role Status Dates YARI Santillan Primary Care Provider Active Team Status: Inactive [...] Inactive Member Role Status Dates Dr. Quincy Simspon MD Attending Provider Active Start: September 07, 2024 End: September 07, 2024 YARI Santillan Primary Care Provider Active Start: September 07, 2024 End: September 07, 2024 YARI Santillan Referring Provider Active Start: September 07, 2024 End: September 07, 2024 Team Status: Inactive Member Role Status Dates YARI Santillan Primary Care Provider Active Start: September 15, 2024 End: September 15, 2024 Dr. Quincy Simpson MD Attending Provider Active Start: September 15, 2024 End: September 15, 2024 Dr. Quincy Simpson MD Referring Provider Active Start: September 15, 2024 End: September 15, 2024 ERWIN NguyenC Other Provider Active Sta rt: September 15, 2024 End: September 15, 2024 Team Status: Active Member Role Status Dates Sadie Santiago NP-C Primary Care Provider Active Start: September 15, 2024 Dr. Quincy Simpson MD Referring Provider Active Start: September 15, 2024 Dr. Quincy Simpson MD Other Provider Active Start: September 15, 2024 ERWIN NguyenC Attending Provider Active Start: September 15, 2024 ERWIN NguyenC Other Provider Active Sta rt: September 15, [...] 2024 End: October 21, 2024 Sadie Santiago NP-Damaris Primary Care Provider Active Start: October 21, 2024 End: October 21, 2024 Sadie Santiago NP-C Referring Provider Active Start: October 21, 2024 End: October 21, 2024 Team Status: Active Member Role Status Dates Dr. Elliott Akhtar DO Attending Provider Active Start: October 21, 2024 Dr. Elliott Akhtar DO Other Provider Active St art: October 21, 2024 Sadie Santiago NP-C Primary Care Provider Active Start: October 21, 2024 Sadie Santiago NP-C Referring Provider Active Start: October 21, 2024 Team Status: Active Member Role Status Dates Kya Gonzalez NP LOADER MAGAZINE GRINDER-C Primary Care Provider Active Start: December 16, 2024 Dr. Santiago Sellers DO Attending Provider Active Start: December 16, 2024 Dr. Santiago Sellers DO Referring Provider Active Start: December 16, 2024 Team Status: Inactive Member Role Status Dates Sadie Santiago LOADER MAGAZINE GRINDER-C Primary Care Provider Active Start: December 17, 2024 End: December 17, 2024 Dr. Santiago Sellers DO Attending Provider Active Start: December 17, 2024 End: December 17, 2024 Dr. Santiago Sellers DO Referring Provider Active Start: December 17, 2024 End: December 17, 2024 Team Status: Inactive Member Role Status Dates Sadie Santiago LOADER MAGAZINE GRINDER-C Primary Care Provider Active Start: December 29, 2024 End: December 29, 2024 Dr. Quincy Simpson MD Attending Provider Active Start: December 29, 2024 End: December 29, 2024 Dr. Quincy Simpson MD Referring Provider Active Start: December 29, 2024 End: December 29, 2024 Team Status: Active Member Role Status Dates Kya Gonzalez NP, LOADER MAGAZINE GRINDER-C Primary Care Provider Active Start: December 30, 2024 Dr. Santiago Sellers DO Attending Provider Active Start: December 30, 2024 Dr. Santiago Sellers DO Referring Provider Active Start: December 30, 2024 Team Status: Inactive Member Role Status Dates Sadie Santiago LOADER MAGAZINE GRINDER-C Primary Care Provider Active Start: January 05, 2025 End: January 05, 2025 Sadie Santiago LOADER MAGAZINE GRINDER-C Referring Provider Active Start: January 05, 2025 End: January 05, 2025 Dr. Quincy Simpson MD Attending Provider Active Start: January 05, 2025 End: January 05, 2025 Team Status: Active Member Role Status Dates Kya Gonzalez NP, LOADER MAGAZINE GRINDER-C Primary Care Provider Active Start: January 20, 2025 Dr. Santiago Sellers DO Attending Provider Active Start: January 20, 2025 Dr. Santiago Sellers DO Referring Provider Active Start: January 20, 2025 Team Status: Inactive Member Role Status Dates Sadie Santiago LOADER MAGAZINE GRINDER-C Primary Care Provider Active Start: February 02, 2025 End: February 02, 2025 Sadie Santiago NP-C Referring Provider Active Start: February 02, 2025 End: February 02, 2025 Dr. Santiago Sellers DO Attending Provider Active Start: February 02, 2025 End: February 02, 2025 Team Status: Inactive Member Role Status Dates Sadie Santiago LOADER MAGAZINE GRINDER-C Primary Care Provider Active Start: February 02, 2025 End: February 20, 2025 Dr. Santiago Sellers DO Attending Provider Active Start: February 02, 2025 End: February 20, 2025 Team Status: Inactive Member Role Status Dates Sadie Santiago LOADER MAGAZINE GRINDER-C Primary Care Provider Active Start: February 11, 2025 End: February 11, 2025 Sadie Santiago LOADER MAGAZINE GRINDER-C Referring Provider Active Start: February 11, 2025 End: February 11, 2025 Dr. Elliott Akhtar DO Attending Provider Active Start: February 11, 2025 End: February 11, 2025 Team Status: Inactive Member Role Status Dates Sadie Santiago [employer] Primary Care Provider Active Start: March 03, 2025 End: March 03, 2025 Dr. James Stephens DO Attending Provider Active Start: March 03, 2025 End: March 03, 2025 Dr. James Stephens DO Referring Provider Active Start: March 03, 2025 End: March 03, 2025 Team Status: Active Member Role Status Dates Sadie Santiago [employer]C Primary Care Provider Active Start: March 03, 2025 Dr. James Stephens DO Referring Provider Active Start: March 03, 2025 Dr. James Stephens DO Other Provider Active Start: March 03, 2025 Dr. Loretta Rausch MD Attending Provider Active S tart: March 03, 2025 Machine Wedger Relationship Specialty Start Date End Date Kya Gonzalez, JOB DEVELOPER FOR DEAF ADULTS-PHYSICIST [employer], JOB DEVELOPER FOR [employer]ULTS-POLLS OR SURVEYS INTERVIEWER [address] [id number] PCP - General 01/19/19 Team Status: Active Member Role/Relationship Status Dates Sadie Santiago [employer] Primary Care Provider Active Team Status: Inactive Member Role/Relationship Status Dates Sadie Santiago [employer] Primary Care Provider Active Start: December 17, 2024 End: December 17, 2024 Dr. Santiago Sellers DO Attending Provider Active Start: December 17, 2024 End: December 17, 2024 Dr. Santiago Sellers DO Referring Provider Active Start: December 17, 2024 End: December 17, 2024 Team Status: Inactive Member Role/Relationship Status Dates Sadie Santiago , [employer] Primary Care Provider Active Start: December 29, 2024 End: December 29, 2024 Dr. Quincy Simpson MD Attending Provider Active Start: December 29, 2024 End: December 29, 2024 Dr. Quincy Simpson MD Referring Provider Active Start: December 29, 2024 End: December 29, 2024 Team Status: Inactive Member Role/Relationship Status Dates Sadie Santiago [employer] Primary Care Provider Active Start: January 05, 2025 End: January 05, 2025 Sadie Santiago [employer]C Referring Provider Active Start: January 05, 2025 End: January 05, 2025 Dr. Quincy Simpson MD Attending Provider Active Start: January 05, 2025 End: January 05, 2025 Team Status: Inactive Member Role/Relationship Status Dates Sadie Santiago , [employer] Primary Care Provider Active Start: February 02, 2025 End: February 02, 2025 Sadie Santiago [employer]C Referring Provider Active Start: February 02, 2025 End: February 02, 2025 Dr. Santiago Sellers DO Attending Provider Active Start: February 02, 2025 End: February 02, 2025 Team Status: Inactive Member Role/Relationship Status Dates Sadie Santiago , [employer] Primary Care Provider Active Start: February 02, 2025 End: February 20, 2025 Dr. Santiago Sellers DO Attending Provider Active Start: February 02, 2025 End: February 20, 2025 Team Status: Inactive Member Role/Relationship Status Dates Sadie Santiago , [employer] Primary Care Provider Active Start: February 11, 2025 End: February 11, 2025 Sadie Santiago [employer]C Referring Provider Active Start: February 11, 2025 End: February 11, 2025 Dr. Elliott Akhtar DO Attending Provider Active Start: February 11, 2025 End: February 11, 2025 Team Status: Inactive Member Role/Relationship Status Dates Sadie Santiago , [employer] Primary Care Provider Active Start: March 03, 2025 End: March 03, 2025 Dr. James Stephens DO Attending Provider Active Start: March 03, 2025 End: March 03, 2025 Dr. James Stephens DO Referring Provider Active Start: March 03, 2025 End: March 03, 2025 Team Status: Active Member Role/Relationship Status Dates Sadie Santiago [employer] Primary Care Provider Active Start: March 03, 2025 Dr. James Stephens DO Referring Provider Active Start: March 03, 2025 Dr. James Stephens DO Other Provider Active Start: March 03, 2025 Dr. Loretta Rausch MD Attending Provider Active S tart: March 03, 2025 Team Status: Active Member Role/Relationship Status Dates Kya Riverodanya MOSS, [employer] Primary Care Provider Active Start: March 25, 2025 Dr. Santiago Sellers DO Attending Provider Active Start: March 25, 2025 Dr. Santiago Sellers DO Referring Provider Active Start: March 25, 2025 Team Status: Inactive Member Role/Relationship Status Dates Sadie Santiago [employer] Primary Care Provider Active Start: March 31, 2025 End: March 31, 2025 Dr. James Stephens DO Attending Provider Active Start: March 31, 2025 End: March 31, 2025 Dr. James Stephens DO Referring Provider Active Start: March 31, 2025 End: March 31, 2025 Team Status: Active Member Role/Relationship Status Dates Sadie Santiago [employer] Primary Care Provider Active Start: March 31, 2025 Dr. James Stephens DO Referring Provider Active Start: March 31, 2025 Dr. James Stephens DO Other Provider Active Start: March 31, 2025 Dr. Loretta Rausch MD Attending Provider Active S tart: March 31, 2025 Team Status: Inactive Member Role/Relationship Status Dates Sadie Santiago , [employer] Primary Care Provider Active Start: April 15, 2025 End: April 15, 2025 Sadie Santiago [employer] Referring Provider Active Start: April 15, 2025 End: April 15, 2025 Dr. Elliott Akhtar DO Attending Provider Active Start: April 15, 2025 End: April 15, 2025 Team Status: Active Member Role/Relationship Status Dates YARI Santillan Primary Care Provider Active Start: April 15, 2025 YARI Santillan Referring Provider Active Start: April 15, 2025 Dr. Elliott Akhtar DO Attending Provider Active Start: April 15, 2025 Dr. Elliott Akhtar , DO Other Provider Active St art: April 15, 2025 Machine Wedger Relationship Specialty Start Date End Date Kya Gonzalez, JOB DEVELOPER FOR [employer]-PHYSICIST [employer], JOB DEVELOPER FOR [employer]-POLLS OR SURVEYS INTERVIEWER [id number] [place] [id number] PCP - General 01/19/19 Team Status: Active Member Role/Relationship Status Dates YARI Santillan Primary care physician Active Team Status: Inactive Member Role/Relationship Status Dates YARI Santillan Primary care physician Active Start: March 03, 2025 End: March 03, 2025 Dr. James Stephens DO Attending physician Active Start: March 03, 2025 End: March 03, 2025 Dr. James Stephens DO Referring Provider Active Start: March 03, 2025 End: March 03, 2025 Team Status: Active Member Role/Relationship Status Dates YARI Santillan Primary care physician Active Start: March 03, 2025 Dr. James Stephens DO Referring Provider Active Start: March 03, 2025 Dr. James Stephens DO Nurse Practitioner Active Start: March 03, 2025 Dr. Loretta Rausch MD Attending physician Active Start: March 03, 2025 Team Status: Inactive Member Role/Relationship Status Dates YARI Santillan Primary care physician Active Start: March 31, 2025 End: March 31, 2025 Dr. James Stephens DO Attending physician Active Start: March 31, 2025 End: March 31, 2025 Dr. James Stephens DO Referring Provider Active Start: March 31, 2025 End: March 31, 2025 Team Status: Active Member Role/Relationship Status Dates Sadie Santiago NP-C Primary care physician Active Start: March 31, 2025 Dr. James Stephens DO Referring Provider Active Start: March 31, 2025 Dr. James Stephens DO Nurse Practitioner Active Start: March 31, 2025 Dr. Loretta Rausch MD Attending physician Active Start: March 31, 2025 Team Status: Inactive Member Role/Relationship Status Dates Sadie Santiago [employer] Primary care physician Active Start: April 15, 2025 End: April 15, 2025 Sadie Santiago [employer]C Referring Provider Active Start: April 15, 2025 End: April 15, 2025 Dr. Elliott Akhtar DO Attending physician Active Start: April 15, 2025 End: April 15, 2025 Team Status: Active Member Role/Relationship Status Dates Sadie Santiago [employer] Primary care physician Active Start: April 15, 2025 Sadei Santiago NP-C Referring Provider Active Start: April 15, 2025 Dr. Elliott Akhtar DO Attending physician Active Start: April 15, 2025 Dr. Elliott Akhtar DO Nurse Practitioner Active Start: April 15, 2025 Team Status: Inactive Member Role/Relationship Status Dates Kya Gonzalez NP, [employer] Primary care physician Active Start: May 14, 2025 End: May 14, 2025 Dr. Santiago Sellers DO Attending physician Active Start: May 14, 2025 End: May 14, 2025 Dr. Santiago Sellers DO Referring Provider Active Start: May 14, 2025 End: May 14, 2025 Reason for Visit (unrecogniz ed section and content) Reason Comments Follow-up Reason Comments Head And Neck Cancer Follow up Reason Comments Oropharyngeal Dysphagia Trach 6mm FOR RECORDS PERTAINING TO PATIENTS WHO ARE [...] BE BASED ON THE PRIMARY CLINICAL RECORDS. [facility]. provides no warranty or guarantee of the accuracy or completeness of information in this document.
== END | disposition home or self-care (01) ==
LOC: CT 06:47
PROVIDERS: PCP Nurse Practitioner Family; Referring Provider Internal Medicine Hematology & Oncology; Visit Provider Internal Medicine Hematology & Oncology
DX: R91.8 Other nonspecific abnormal finding of lung field (principal)
CPT/HCPCS: 71260; Q9967; A4216

== ENCOUNTER 2025-07-10 09:26 | Emergency (ER) | payer MEDICARE, SELFPAY ==
[2022-01-31 09:09] VITALS: BMI 22.6
[2025-07-10 09:26] VITALS: BP 144/72; PULSE 94; RESP 18; TEMP 36.4; O2SAT 98; BMI 19.9
--- OUTSIDE RECORDS SUMMARY | 2025-07-10 10:08 | XMS RPT_ITS | CCD ---
Author Organization [facility] Care Team Providers Care Dust Box Tender Name Role Phone Ciesa Archana Unavailable Shane Gallo Unavailable Xavier Myers Unavailable Unavailable Unavailable Unavailable One Eighty Unavailable Eighty, One Unavailable Rachel Brooks Unavailable Unavailable Ciesa, Archana Unavailable Unavailable Jeana Gaspar Unavailable Caridad Gomez Unavailable Unavailable Lina Pretty Unavailable Unavailable Xavier Ponce Unavailable Unavailable Shane Gallo Unavailable Cieschioma ORNELAS Archana Unavailable Shane Gallo MD Unavailable Eighty, One Unavailable Xavier Ponce LPN Unavailable Unavailable Caridad Gomez LPN Unavailable Unavailable Unavailable Unavailable Ciesa Archana Unavailable Unavailable Unavailable Ciesa, Archana Unavailable SidagaBrayan carpio Unavailable Unavailable Rachel Brooks Unavailable Branden Avinash Unavailable Unavailable Katharinaa BMET, BMET-C Kamryn Primary Care Provider Monica BMET, BMET-C Kamryn Referring Provider Dr. Santiago Sellers Attending Provider Dr. Santiago Sellers Referring Provider [phone] Dr. Quincy Simpson Attending Provider Dr. Donaldo Nichole Attending Provider Dr. Quincy Simpson Referring Provider Alissa BMET, BMET-C Marce Attending Provider Dr. Cesar Mcbride Emergency Provider Dr. Sonu Lee Admit Provider Dr. Sonu Lee Other Provider Katerin, BMET-C Rehana Attending Provider Unavail able Dr. Dalila Melvin Attending Provider Dr. Dalila Melvin Other Provider Dr. Alan Miller Other Provider [phone] Ciesa, Kamryn Unavailable Unavailable Unavailable Gravius CHOIR TEACHER, Li Unavailable Unavailable Hubert DO, Jeana Unavailable Slarb FISH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, Mirna Unavailable Unavailable Ciesa, Kamryn Unavailable Jack CONCRETE PUMP OPERATOR HELPER, Sadie Unavailable Jack CONCRETE PUMP OPERATOR HELPER, Sadie Unavailable Unavailable Unavailable Ciesa BMET, BMET-C [facility] Primary Care Provider Dr. Santiago Sellers Attending Provider Dr. Santiago Sellers Referring Provider Ciesa BMET, BMET-C [facility] Referring Provider Dr. Quincy Simpson Attending Provider Cidanya BMET, BMET-C [facility] Primary Care Provider Dr. Santiago Sellers Attending Provider Dr. Santiago Sellers Referring Provider Monica BMET, BMET-C [facility] Primary Care Provider Dr. Santiago Sellers Attending Provider Dr. Santiago Sellers Referring Provider Dr. Cesar Mcbride Emergency Provider Dr. Sonu Lee Admit Provider Dr. Sonu Lee Other Provider Dr. Dalila Melvin Attending Provider Dr. Dalila Melvin Other Provider Dr. Alan Miller Other Provider Ciesa BMET, BMET-C [facility] Referring Provider Dr. Quincy Simpson Attending Provider Ciesa BMET, BMET-C [facility] Primary Care Provider Ciesa BMET, BMET-C [facility] Referring Provider Dr. Santiago Sellers Attending Provider Dr. Quincy Simpson Attending Provider Ciesa BMET, BMET-C [facility] Primary Care Provider Ciesa BMET, BMET-C [facility] Referring Provider Dr. Santiago Sellers Attending Provider Ciesa BMET, BMET-C [facility] Primary Care Provider Ciesa BMET, BMET-C [facility] Referring Provider Dr. Santiago Sellers Attending Provider Dr. Quincy Simpson Attending Provider Jack ORNELAS, Sadie Unavailable Jack CONCRETE PUMP OPERATOR HELPER, Sadie Unavailable Sabino QUESADA, Shane Paniagua Unavailable Eighty, One Unavailable Gravius CHOIR TEACHER, Li Unavailable Unavailable Jason LEYVA, Caridad Unavailable Unavailable Xavier Ponce LPN Unavailable Unavailable Hubert DOJeana Unavailable Haleigh EATONN, Mirna Unavailable Unavailable Unavailable Unavailable Ciesa BMET, BMET-C [facility] Primary Care Provider Dr. Santiago Sellers Attending Provider Ciesa BMET, BMET-C [facility] Primary Care Provider Dr. Santiago Sellers Attending Provider Ciesa BMET, BMET-C [facility] Referring Provider Dr. Quincy Simpson Attending Provider Cathy ALONZO Koki Unavailable Unavailable Jack CONCRETE PUMP OPERATOR HELPER, Sadie Attending Unavailable Jack CONCRETE PUMP OPERATOR HELPER, Sadie Referring Unavailable Jack CONCRETE PUMP OPERATOR HELPER, Sadie Consulting Unavailable Ciesa BMET, BMET-C [facility] Primary Care Provider Ciesa BMET, BMET-C [facility] Referring Provider Dr. Santiago Sellers Attending Provider [phone] Pedro Pablo, Mr. Segundo Ocampo Attending Unavailab [...] vailable Ciesa, Ms. Archana Primary Care Unavailable Kumar, Dr. True De La Cruz Attending Unava ilable Ciesa, Ms. Archana Primary Care Unavailable Pedro Pablo, Mr. Segundo Ocampo Attending Unavailab dillan Kumar, Dr. True De La Cruz Referring Unava ilable Ciesa, Ms. Archana Primary Care Unavailable Pedro Pablo, Mr. Segundo Ocampo Attending Unavailab dillan Kumar, Dr. True De La Cruz Referring Unava ilable Ciesa BMET, BMET-C [facility] Primary Care Provider Ciesa BMET, BMET-C [facility] Referring Provider Dr. Quincy Simpson Attending Provider Ciesa MAIL PROCESSING MACHINE OPERATOR-CONCRETE PUMP OPERATOR HELPER, MAIL PROCESSING MACHINE OPERATOR-HAT AND CAP PARTS CUTTER HAND, [facility] Primary Care Pr ovider Jeana Gaspar DO Unavailable Dr. Santiago Sellers Attending Provider FriendDr. Gallagher Attending Provider FriendDr. Gallagher Other Provider Ciesa BMET, BMET-C [facility] Primary Care Provider Ciesa BMET, BMET-C [facility] Referring Provider Dr. Quincy Simpson MD Attending Provider Dr. Quincy Simpson MD Referring Provider Jack BMET-C, Sadie Primary Care Provider Jack BMET-C, Sadie Referring Provider Kalie BMET-C, Loretta Murrell Other Provider Dr. Quincy Simpson MD Other Provider Kalie BMET-C, Loretta Murrell Attending Provider Dr. Elliott Akhtar DO Attending Provider Dr. Elliott Akhtar DO Other Provider Monica BMET-C, [facility] Primary Care Provider Unavailab le Dr. Santiago Sellers DO Attending Provider Dr. Santiago Sellers DO Referring Provider Dr. Quincy Simpson MD Attending Provider Jack BMET-C, Sadie Primary Care Provider Dr. Quincy Simpson MD Referring Provider Dr. Sanitago Sellers DO Attending Provider Dr. Santiago Sellers DO Referring Provider Ciesa BMET-C, [facility] Primary Care Provider Unavailab le Jack BMET-C, Sadie Primary Care Provider Jack BMET-C, Sadie Referring Provider Tatiana QUESADA, Dr. Mathew Attending Provider Tatiana QUESADA, Dr. Mathew Referring Provider Ciesa BMET-C, [facility] Primary Care Provider Unavailab le Jack BMET-C, Sadie Primary Care Provider Jack BMET-C, Sadie Referring Provider Giovana REN, Dr. Gallagher Attending Provider Angelo REN, Dr. Ramirez Attending Provider Angelo REN, Dr. Ramirez Referring Provider Angelo REN, Dr. Ramirez Other Provider Shalom QUESADA, Dr. Burgos Attending Provider [phone] Ciesa MAIL PROCESSING MACHINE OPERATOR-CONCRETE PUMP OPERATOR HELPER, MAIL PROCESSING MACHINE OPERATOR-HAT AND CAP PARTS CUTTER HAND, [facility] Primary Care Pr ovider Ciesa BMET-C, [facility] Care Provider Unavailab dillan Akhtar DO, Dr. Gallagher Other Provider Roman Morales MD Unavailable Angelo REN, James Browning Unavailable Jack CONCRETE PUMP OPERATOR HELPER, Sadie Unavailable Jack BMET-C, Sadie Primary Care Physician Angelo REN, Dr. Ramirez Attending Physician Angelo REN, Dr. Ramirez Nurse Practitioner Shalom QUESADA, Dr. Burgos Attending Physician Jack BMET-C, Sadie Referring Provider Giovana REN, Dr. Gallagher Attending Physician [phone] Giovana REN, Dr. Gallagher Nurse Practitioner Ciesa BMET-C, [facility] Primary Care Physician Unavaila shelley Sellers DO, Dr. Henderson Attending Physician Dr. Santiago Sellers DO Referring Provider DAYAMI JHA Referring Unavailable CIESAKAMRYN E Primary Care Unavailable Jack, Sadie Primary Care Unavailable Spittle, James Referring Unavailable Loretta Rausch Attending Unavailable Spittle James Consulting Unavailable Jack, Sadie Primary Care Unavailable Jack, Sadie Referring Unavailable Friend, Elliott Consulting Unavailable Friend, Elliott Attending Unavailable Jack, Sadie Referring Unavailable Isckarus, Quincy Attending Unavailable Jack, Sadie Primary Care Unavailable Jack, Sadie Primary Care Unavailable Jack, Sadie Referring Unavailable Friend, Elliott Attending Unavailable Spittle, James Referring Unavailable Spittle, James Attending Unavailable Jack, Sadie Primary Care Unavailable Jack, Sadie Primary Care Unavailable Spittle, James Referring Unavailable Spittle, James Attending Unavailable Santiago Sellers Attending Unavailable Jack, Sadie Primary Care Unavailable Jack, Sadie Primary Care Unavailable Isckarus, Quincy Attending Unavailable Isckarus, Quincy Referring Unavailable Jack, Sadie Referring Unavailable Jack, Sadie Primary Care Unavailable Friend, Elliott Attending Unavailable Jack, Sadie Referring Unavailable Isckarus, Quincy Attending Unavailable Jack, Sadie Primary Care Unavailable Jack, Sadie Primary Care Unavailable Isckarus, Quincy Attending Unavailable Isckarus, Carmitaour Referring Unavailable Jack, Sadie Primary Care Unavailable Santiago Sellers Attending Unavailable Jack, Sadie Primary Care Unavailable Jack, Sadie Referring Unavailable Friend, Elliott Attending Unavailable Santiago Sellers Referring Unavailable Santiago Sellers Attending Unavailable Monica BMET, [facility] Primary Care Unavailable Jack, Sadie Primary Care Unavailable Santiago Sellers Attending Unavailable Santiago Sellers Attending Unavailable Santiago Sellers Referring Unavailable Jack, Sadie Primary Care Unavailable Isckarus, Quincy Attending Unavailable Isckarus, Quincy Referring Unavailable Jack, Sadie Primary Care Unavailable Jack, Sadie Referring Unavailable Jack, Sadie Primary Care Unavailable IsckarusQuincy Attending Unavailable Jack, Sadie Referring Unavailable Santiago Sellers Attending Unavailable Jack, Sadie Primary Care Unavailable Jack, Sadie Primary Care Unavailable Jack, Sadie Referring Unavailable Quincy Simpson Attending Unavailable Jack, Sadie Primary Care Unavailable James Stephens Referring Unavailable James Stephens Consulting Unavailable Loretta Rausch Attending Unavailable Jack, Sadie Primary Care Unavailable Tatiana, Carmitaour Attending Unavailable Loretta Jade Consulting Unavailable Quincy Simpson Referring Unavailable Jack, Sadie Primary Care Unavailable Kamryn Gonzalez NP Referring Unavailable FriendElliott Attending Unavailable Jack, Sadie Referring Unavailable Jack, Sadie Primary Care Unavailable FriendElliott Attending Unavailable FriendElliott Consulting Unavailable Loretta Jade Consulting Unavailable Loretta Jade Attending Unavailable Tatiana, Quincy Referring Unavailable Jack, Sadie Primary Care Unavailable Tatiana, Carmitaour Consulting Unavailable Jack, Sadie Primary Care Unavailable Santiago Sellers Attending Unavailable DAYAMI JHA Attending Unavailable [facility] Primary Care Unavailable RACHEL BROOKS Attending Unavailable [facility] Primary Care Unavailable RACHEL BROOKS Attending Unavailable [facility] Primary Care Unavailable Medications Current Medications Medication Drug Class(es) Dates Sig (Normalized) Sig (Original) acetaminophen 32 mg/ml oral solution (14 sources) Start: 11-13-2021 acetaminophen 160 mg/5 mL [...] every six hours for pain RA Fever Pharmacognosist/Pain Reliever 160 MG/5ML Oral Suspension take 20 [...] mcg/mL oral solution active Tracy Seals MA [facility] cefdinir 300 mg oral capsule (9 sources) Cephalosporin Antibacterial Start: 11-16-2022 take 1 [...] %-dexamethasone 0.1 % ear drops,suspension active Tracy Seasl MA [facility] collagenase 0.25 unt/mg topical ointment (20 sources) Collagen-specific Enzyme Start: 04-25-2022 collagenase (SantyL) [...] Start: 08-15-2021 take 1 tablet by evgeny once daily folic acid 0.4 mg oral tablet ; 1 tab(s) oral once a day Quantity: 0 Refills: 0 Ordered: 31-Oct-2021 Tova Donahue Generic Substitution Allowed hydrogen peroxide 30 mg/ml topical solution (11 sources) Start: 11-13-2021 hydrogen perox merary 3 [...] Quantity: 114 {Tablet} Refills: 2 Ordered: 29-Jun-2020 Kamryn Gonzalez CNP, CNP, Mary E Start : [...] once daily metroNIDAZOLE 250 mg oral tablet (9 sources) Nitroimidazole Antimicrobial Start: 01-15-20 23 take 1 tablet by mouth three times daily metroNIDAZOLE (Flagyl) 250 mg tablet Take 1 tablet (250 mg) by mouth 3 times a day. 01/14/2023 Active mineral oil-hydrophilic petrolatum (petrolatum) ointment (9 sources) Start: 11-13-19 mineral oil-hydrophilic petrolatum (petrolatum) ointment Apply topically. 11/13/2021 Active Start: 11-13-2021 mineral oil-hy drophilic petrolatum (petrolatum) ointment Apply topically. 0 11/13/2021 Active miscellaneous medical supply misc (6 sources) Start: 03-01-2025 miscellaneous medical supply misc [...] to pical ointment active Tracy Seals MA [facility] nystatin 783523 unt/ml oral suspension (20 sources) Polyene Antifungal Start: 02-14-2022 take 1 mL by mouth every six hours as needed Start: 02-14-2022 take 1 mL by mouth e very six hours Nystatin Active 1 ML PO EVERY 6 HOURS February 13, 2022 11:00pm swish and spit - per Dr. Brooks's office Start: 02-12-2022 End: 06-18-2022 take 5 mL by mouth three times daily Nystatin 242005 UNIT/ML Mouth/Throat Suspension 5ml swish and spit three times a day for 14 days Quantity: 210 Refills: 0 Ordered: 12-Feb-2022 Rachel Brooks MD Start : 12-Feb-2022 End : 18-Jun-2022 Complete Start: 01-03-2022 Nystatin 54214 0 UNIT/ML Mouth/Throat Suspension Quantity: 112 Refills: [...] release oral tablet (20 sources) Blood Viscosity Pharmacognosist Start: 04-12-20 take 1 tablet by mouth three times daily Start: 10-20-2024 End: 02-02-2025 take 1 tablet by mouth twice daily at mealtime Pentoxifylline 400 mg tablet extended release Discontinued 400 mg PO TWICE A DAY October 20, 2024 1:00am February 02, 2025 9:32am radiation fibrosis must administer with a meal/food Start: 05-22-2022 Start: 04-23-2022 take 1 tablet by evgeny once daily [...] Quantity: 30 {Tablet} Refills: 0 Ordered: 15-Dec-2021 Kamryn Gonzalez Mary Start : 15-Dec-2021 Active Start: [...] Allowed Petrolatum (2 sources) Start: 11-13-2021 petrolatum topical ; 1 application topically 3 [...] a day. 08/25/2023 Active polyethylene glycol 3350 26994 mg powder for oral solution (11 sources) Osmotic Laxative Start: 11-13-2021 polyethylene glycol [...] 03/27/2022 Active Start: 03-27-2022 SSD 1 % Warehouse Operations Associate al Cream Quantity: 85 Refills: 0 Ordered: [...] DAY 60 January 24, 2022 11:00pm Terazosin (11 sources) alpha-Adrenergic Syeda Start: 11-13-2021 teraz osin [...] 02-26-2022 Start: 02-26-2022 take 1 capsule by [facility] once daily Vitamin E 400 UNIT [...] Quantity: 1 {Each} Refills: 0 Ordered: 04-Jul-2022 Jack ORNELAS Sadie Start : 04-Jul-2022 Active Comments: Please give [...] Quantity: 14 {Tablet} Refills: 0 Ordered: 05-Jan-2019 Kamryn Gonzalez Start : 05-Jan-2019 End : 19-Jan-2019 [...] 22, 2022 11:00pm Start: 09-26-2021 End: 04-12-2025 fluticasone (Flonase) 50 mcg /actuation nasal spray Administer into affected nostril(s). 09/26/2021 [...] 30 Refills: 0 Start : 08-Jan-2019 Active iohexol (OMNIPaque) 350 mg iodine/mL solution 60 mL (1 source) Start: 07-08-2025 End: 07-08-2025 60 mL, intravenous, Once in imaging, Starting on Rosa 07/08/25 at 1351, For 1 dose iohexol (OMNIPaque) 350 mg iodine/mL solution 75 mL (1 source) Start: 07-08-2025 End: 07-08-2025 75 mL, intravenous, Once in imaging, Starting on Rosa 07/08/25 at 1350, For 1 dose levoFLOXacin 500 mg oral tablet (12 sources) [...] Quantity: 42 {Patch} Refills: 0 Ordered: 05-Jan-2019 Kamryn Gonzalez Start : 05-Jan-2019 End : 16-Feb-2019 [...] Reductase Inhibitor Antibacterial, Sulfonamide Antimicrobial Start: 12-15-2021 Sulfamethoxazol e-Trimethoprim 200-40 MG/5ML Oral Suspension Quantity: 120 Refills: [...] site from left fibula and Left Alt, (-22) Cancer of head and neck (1 source) [...] and good, repeat in a year per Sole Mycoses (20 sources) Candidiasis of mouth; Translations: [Candidal stomatitis] Episodic Nutritional deficiencies (20 sources) Cobalamin deficiency; Translations: [B12 nutritional deficiency] 01-02-2019 Episodic Other circulatory disease (3 sources) Vascular disorder; Translations: [Other disorders of arteries, arterioles and capillaries in diseases classified elsewhere] Onset: 06-30-2025 06-10-2025 Chronic Other circulatory disease (1 source) Other disorders of arteries, arterioles and capillaries in diseases classified elsewhere; Translations: [Other disorders of arteries, arterioles and capillaries in diseases classified elsewhere] Onset: 06-30-2025 Chronic Other circulatory disease (2 sources) Vascular disorder 06-14-2025 Episodic Other ear and sense organ disorders (16 sources) Sensorineural hearing loss, bilateral; Translations: [Sensorineural [...] 12-15-2018 Episodic Other gastrointestinal disorders (20 sources) Swallowing [...] injuries and conditions due to external causes (4 sources) Radiation sickness, unspecified, sequela; Translations: [Late effect of radiation] Onset: 06-30-2025 06-10-2025 Episodic Other lower respiratory disease (10 [...] breakdown] 07-24-2023 Episodic Other upper respiratory disease (10 sources) Tracheostomy present; Translations: [Tracheostomy status] Onset: [...] 04/11 keep taking synthroi d. Repeat labs Sep dx 7/20 Changing dose to 75 mcg dailynew dx 7/ Changing dose to 75 mcg daily, repeat lab at AugSep 13ne dx 7/20 Unclassified (20 sources) BMI 23.0-23.9, [...] Onset: 08-31-2024 08-31-2024 Episodic Other gastrointestinal disorders (20 sources) Oropharyngeal dysphagia; Translations: [Dysphagia, oropharyngeal phase] Onset: 09-02-2023 09-02-2023 Episodic Other gastrointestinal disorders (1 source) Dysphagia, unspecified; Translations: [Dysphagia, unspecified] Onset: 11-10-2024 Episodic Other gastrointestinal disorders (2 sources) Dysphagia, oropharyngeal phase; Translations: [Dysphagia, oropharyngeal phase] Onset: 09-02-2023 Episodic Other injuries and conditions due to external causes (20 sources) Adverse effect of radiation therapy; Translations: [Other specified aftercare] Onset: 08-29-2023 08-29-2023 Episodic Other injuries and conditions due to external causes (10 sources) Radiation sickness, unspecified, subsequent encounter; Translations: [...] s/p port placement Onset: 01-21-2019 04-22-2022 Unclassified (2 sources) Adverse effect of radiation, sequela 06-14-2025 NEGATED: Highlighted row has not occurred!Residual codes; unclassified (5 sources) Disease Episodic Results Test Name Value Interpretation Reference Range Facility CREATININEon 07-07-2025 Creatinine [Mass/Vol] 0.42 mg/dL Low 0.70-1.35 [facility] Comment on above: Performed By: #### 3 93, [id number] #### [place] [address] Urgent Care Physician: Jerrell Manuel MD GFR/1.73 sq M.predicted among non-blacks MDRD (S/P/Bld) [Vol rate/Area] 121 mL/min/{1.73_m2} Normal > OR = 60 [facility] Comment on above: Performed By: #### 3 54, [id number] #### [facility] [address] [address] Urgent Care Physician: Jerrell Manuel MD TSH W/REFLEX TO FT4on 2024 TSH W/REFLEX TO FT4 3.22 mIU/L Normal 0.40-4.50 [facility] Comment on above: Performed By: #### 3 95, [id number] #### [facility] [address] [place] [address] Urgent Care Physician: Jerrell Manuel MD Oncology Visit Reporton 06-23 Oncology Visit Report [facility] [address] [place] [address] OFFICE VISIT Date of Service: 07/05/25 1139 MR#: [id number] Acct: [id number] Name: MY JAMA Rep #: [id number] : 1960 From: Quincy Simpson MD Age/Sex: 65/M Location: [facility] Status: Signed HPI Subjective Date of Service 07/05/25 Chief Complaint Head and neck cancer follow-up [...] FINDINGS: Supraclavicular: No acute process within the [id number]. Body wall soft tissues: No acute process. [...] AE1-3 (AE1/AE3/PCK26) positive CK7 (OV-TL12/30) negative CK8 ([id number]) positive, weak CK20 (KS20.8) negative TTF-1 (8G7G3/1) [...] 2019 PE (more content not included)... Normal [facility] US CAROTID ARTERY DUPLE X BILATERALon 06-30-2025 [facility] US CAROTID ARTERY DUPLEX BILATERAL [facility] [address], [address], [place] [address] and Vascular Lab Report [facility] US CAROTID ARTERY DUPLEX BILATERAL Patient Name: MY Yamilet Torres Physician: [id number] Ron Vaughn MD Study Date: 06/30/2025 Ordering [id number] DAYAMI Seay Physician: JAIR MRN/PID: [id number] Technologist: Fanny Ortega T Technologist 2: Date of /Age: 11 1960 years Gender: M Admission Status: Outpatient Location [facility] Performed: Diagnosis/ICD: Other disorders of arteries, arterioles and capillaries in diseases classified elsewhere-I79.8 Indication: other disorders of arteries s/p radiation CPT Codes: 51343 Cerebrovascular Carotid Duplex scan complete Patient History S/p neck radiation & tracheostomy. CONCLUSIONS: Right Carotid: Findings are consistent with less than 50% stenosis of the right proximal internal carotid artery. Right external carotid artery appears patent with no evidence of stenosis. The right vertebral artery is patent with antegrade flow. No evidence of hemodynamically significant stenosis in the right subclavian artery. Left Carotid: Findings are consistent with less than 50% stenosis of the left proximal internal carotid artery. Left external carotid artery appears patent with no evidence of stenosis. The left vertebral artery is not visualized. No evidence of hemodynamically significant stenosis in the left subclavian artery. Technically difficult study due to tracheostomy/wounds. Imaging & Doppler Findings: Right Plaque Morph: The proximal right internal carotid artery demonstrates heterogenous plaque. The proximal right external carotid artery demonstrates heterogenous plaque. The right carotid bulb demonstrates intimal thickening plaque. Left Plaque Morph: The proximal left internal carotid artery demonstrates heterogenous plaque. The left carotid bulb demonstrates intimal thickening plaque. Right Left PSV EDV PSV EDV 68 cm/s CCA P 93 cm/s 63 cm/s CCA D 67 cm/s 87 cm/s 17 cm/s ICA P 55 cm/s 13 cm/s 84 cm/s 13 cm/s ICA M 105 cm/s 24 cm/s 59 cm/s 10 cm/s ICA D 130 cm/s 27 cm/s 102 cm/s ECA 73 cm/s 45 cm/s 12 cm/s Vertebral 117 cm/s Subclavian 165 cm/s Right Left ICA/CCA Ratio 1.4 0.8 [id number] Ron Vaughn MD Final CONCLUSIONS: Right Carotid: Findings are consistent with less than 50% stenosis of the right proximal internal carotid artery. Right external carotid artery appears patent with no evidence of stenosis. The right vertebral artery is patent with antegrade flow. No evidence of hemodynamically significant stenosis in the right subclavian artery. Left Carotid: Findings are consistent with less than 50% stenosis of the left proximal internal carotid artery. Left external carotid artery appears patent with no evidence of stenosis. The left vertebral artery is not visualized. No evidence of hemodynamically significant stenosis in the left subclavian artery. Technically difficult study due to tracheostomy/wounds. Normal [facility] Chest WITH Contraston 2024 Chest WITH Contrast [facility] Imaging Services [address] [place] [address] [id number] Chest WITH Contrast MR#: [id number] Acct: [id number] Name: MY JAMA Rep #: [id number] : 1960 Mack 65 From: Pernell Beauchamp MD PCP: Sadie Santiago NP-C Status: REG CLI Study: Chest WITH Contrast Date of Exam: 06/28/25 Exam# [id number] Ordering Dr: Quincy Simpson MD EXAM: CT Chest With Intravenous Contrast CLINICAL INDICATION: F/U RUL NODULE TECHNIQUE: Axial computed tomography images of the chest with intravenous contrast. This CT exam was performed using one or more of the following dose reduction techniques: automated exposure control, adjustment of the mA and/or kV according to patient size, and/or use of iterative reconstruction technique. COMPARISON: CT Chest dated 12/29/2024 FINDINGS: LUNGS AND PLEURAL SPACES: Emphysematous lung changes with bilateral apical scarring, stable. Stable nodules of right upper lobe measuring up to 2 mm. No new suspicious pulmonary nodules. No consolidation. No significant effusion. No pneumothorax. HEART: Unremarkable. No cardiomegaly. No significant pericardial effusion. No significant coronary artery calcifications. BONES/JOINTS: Unremarkable. No acute fracture. SOFT TISSUES: Unremarkable. VASCULATURE: Unremarkable. No thoracic aortic aneurysm. LYMPH NODES: Unremarkable. No enlarged lymph nodes. LIVER: Fatty infiltration of the liver. TUBES, LINES AND DEVICES: Tracheostomy tube in satisfactory position. CT/Chest WITH Contrast IMPRESSION: 1. Emphysematous lung changes with bilateral apical scarring, stable. 2. Stable nodules of right upper lobe measuring up to 2 mm. No new suspicious pulmonary nodules. 3. Continue low-dose CT scan of the chest in 12 months is recommended. [place] Location: [facility] CC: YARI Santiago; Dr. Quincy Simpson MD Marketing Proposal Specialist: Signed Normal [facility] D/C Summary- SPon 06-15-2025 D/C Summary- SP [facility] Speech Pathology [address] [place] [address] / REHABILITATION SERVICES DISCHARGE SUMMARY MR#: [id number] Acct: [id number] Name: MY JAMA Rep #: [id number] : 1960 64 From: Latosha Boyer M.A., CCC-ASSOCIATE SALES MANAGER Referring Dr.: Dr. Santiago Sellers, DO Status: RE G RCR Insurance: [facility] MEDICARE SENIOR [employer] SELF PAY INSURANCE Discharge [...] Gonzalez; Dr. Santiago Sellers, MW Signed Normal [facility] SP/HP.Ralph 05-14-2025 [facility] [address] [place] [address]. [address] [place] [address] / REEVALUATION / MEDICARE RECERTIFICATION SPEECH THERAPY MR#: [id number] Acct: [id number] Name: MY JAMA Rep #: [id number] : 1960 64 From: Latosha Boyer M.A., [facility]-ASSOCIATE SALES MANAGER Referring Dr.: Dr. Santiago Sellers, Insurance: [employer] S[employer]IOR [employer] SELF PAY INSURANCE Visit History Visit Info Date of Eval: 04/22/25 Today is Visit #: 49 Patient's Approved Number of Visits: 4 Insurance Date Limit: 05/29/25 Marine Underwriter: SURJIT History Attending Doctor: Referring Doctor: Reason [...] intake. Hx of esophageal dysphagia managed by pleating machine operator, Dr. Akhtar, s/p EGD w/ botox injection [...] current prescribed condition?: No Personal Preferred language: Finnish Patient Allergies Allergies Allergies: Allergies No Known [...] complete n (more content not included)... Normal [facility] Relevant diagnostic tests/la boratory data Narrativeon 05-07-2025 Fall risk assessment no KUSH Brain in Hand. Work Phone: MEDS REVIEW Documentation of current medications (procedure) [employer]. Work Phone: MEDS REVIEWD Medications reviewed with changes [employer]. Work Phone: XRAY HX of the bilateral brooks ds on 02/18/2025 at [facility]. Work Phone: SP/HP.SPREEVon 04-22-2025 SP/HP.SPREEV [facility] Speech Pathology [facility] [address] [facility] [address] [facility]. [address] [place] [address] / REEVALUATION / MEDICARE RECERTIFICATION SPEECH THERAPY MR#: [id number] Acct: [id number] Name: MY JAMA Rep #: [id number] : 1960 64 From: Latosha Boyer M.A., [facility]-ASSOCIATE SALES MANAGER Referring Dr.: Dr. Santiago Sellers, DO Insurance: [employer] S[employer]IOR [employer] SELF PAY INSURANCE Visit History Visit Info Date of Eval: 04/22/25 Today is Visit #: 45 Patient's Approved Number of Visits: 4 Insurance Date Limit: 04/28/25 Marine Underwriter: SURJIT Pascual Attending Doctor: Referring Doctor: Reason [...] intake. Hx of esophageal dysphagia managed by pleating machine operator, Dr. Akhtar, s/p EGD w/ botox injection [...] current prescribed condition?: No Personal Preferred language: Finnish Patient Allergies Allergies Allergies: Allergies No Known [...] PROGRESSING - Pt completes jaw opening as ASSOCIATE SALES MANAGER applies MFR techniques to pt's masseter and pterygoids for 2-3 min du (more content not included)... Normal [facility] EGD Reporton 04-15-2025 EGD Report [facility] Medical Records Department [address] [place] [address] EGD Report MR#: [id number] Acct: [id number] Name: MY JAMA Rep #: [id number] : 1960 64 From: Elliott Akhtar DO PCP: YARI Santillan Status:REG [facility] Patient Name: My Jama Procedure Date: 04/15/2025 [...] present medications. Procedure Code(s): --- Professional --- 42775, Esophagogastroduodenosc opy, flexible, transoral; with insertion of guide wire followed by passage of dilator(s) through esophagus over guide wire 07639, 59,51, Esophagogastroduodenosc opy, flexible, transoral; with directed submucosal injection(s), any substance CPT copyright 2021 [employer]. All rights reserved. The codes documented in this report are preliminary and upon foot orthopedist review may be revised to meet current compliance requirements. Elliott Akhtar DO 04/15/2025 8:56:45 AM This report has been signed electronically. Number of Addenda: 0 Note Initiated On: 04/15/2025 8:26 AM 04/15/25 0857 Date Elliott Akhtar DO Cosignallison Signature: Date (if indicated) CC: YARI Santiago; Elliott Akhtar DO (more content not included)... Normal [facility] MR/POSTOP.ANCELMO 04-15-2025 MR/POSTOP.[facility] Medical Records Department [address] [place] [address] Anesthesia Postop Eval I 04/15/25 09 MR#: [id number] Acct: [id number] Name: MY JAMA Rep #: [id number] : 1960 64 From: Romulo Lockett PCP: YARI Santillan Status:REG SDC Y Race: C Location: [place] [address] Anesthesia: Postop Eval I Current Vital Signs [...] document: Postop Eval 1 completed: Yes 04/15/25901 Date Romulo Manley Signature: Date CC: Signed Normal [facility] MR/CEWRGCXQ7jo 04-15-2025 [facility] Medical Records Department [address] [place] [address] Anesthesia Postop Eval II 04/15/25 1025 MR#: [id number] Acct: [id number] Name: MY JAMA Rep #: [id number] : 1960 64 From: Roz Collins MD PCP: YARI Santillan Status:[facility] Y Race: C Location: EN [...] Vomiting: No Complications Anesthesia Complication: No 04/15/25 1025 Date Narenyigbnallely Collins MD Cosigner Signature: Date CC: Signed Normal [facility] NCS and/or EMG Patienton NCS and/or EMG Patient [facility] Pulmonary Services/Neurology [address] [place] [address] MR#: [id number] Acct: [id number] Name: MY JAMA Rep #: [id number] : 1960 64 From: Loretta Rausch MD Referring Dr: James Stephens DO Status: REG C LI Location: [facility] Date: 03/31/25 Sex: M C NCS and/or [...] Multi Select Codes Neurology Neurology Interp Codes: 84478-73 Musc test done w/n test comp (interp) and 81703-64 Nrv cndj tst 5-6 studies (interp) 03/31/253 Date Loretta Rausch MD CC: BMET-C Sadie Santiago; Dr. Loretta Rausch MD; Dr. James Stephens DO Date Dictated: 03/31/251529 Date Transcribed: 03/31/251529 Marketing Proposal Specialist: BROCK Signed Normal [facility] SP/HP.SPREEVon 03-29-2025 SP/HP.SPREEV [facility] Speech Pathology [facility] [address] [place] [address]. [address] [place] [address] / REEVALUATION / MEDICARE RECERTIFICATION SPEECH THERAPY MR#: [id number] Acct: [id number] Name: MY JAMA Rep #: [id number] : 1960 64 From: Latosha Boyer M.A., [facility]-ASSOCIATE SALES MANAGER Referring Dr.: Dr. Santiago Sellers DO Insurance: [employer] S[employer]IOR [employer] SELF PAY INSURANCE Visit History Visit Info Date of Eval: 03/17/24 Today is Visit #: 41 Insurance Date Limit: 03/25/25 Marine Underwriter: SURJIT History Attending Doctor: Referring Doctor: Reason [...] intake. Hx of esophageal dysphagia managed by pleating machine operator, Dr. Akhtar, s/p EGD w/ botox injection [...] opening (03/17/2025 - 45mm, 03/25/2025 - 46mm). ASSOCIATE SALES MANAGER is completing this re- evaluation to request additional dysphagia therapy visits as pt has reached his insurance end date for authorized visits. He missed 1 visit due to unexpected plans coming up. 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 Normal [facility] NCS and/or EMG Patienton NCS and/or EMG Patient [facility] Pulmonary Services/Neurology [address] [place] [address] MR#: [id number] Acct: [id number] Name: MY JAMA Rep #: [id number] : 1960 64 From: Loretta Rausch MD Referring Dr: James Stephens DO Status: REG C LI Location: [facility] Date: 03/03/25 Sex: M C NCS and/or [...] Multi Select Codes Neurology Neurology Interp Codes: 72682-67 Musc test done w/n test comp (interp) (2) and 23659-16 Nrv cndj test 11-12 studies (interp) 03/03/25 1528 Date Loretta Rausch MD CC: BMET-C Sadie Santiago; Dr. Loretta Rausch MD; Dr. James Stephens DO Date Dictated: 03/03/25 151 Date Transcribed: 03/03/251518 Marketing Proposal Specialist: AA Signed Normal [facility] Gastroenterology Visit Repor ton 02-11-2025 Gastroenterology Visit Report [facility] Gastroenterology [address] [place] [address] OFFICE VISIT Date of Service: 02/11/25 MR#: [id number] Acct: [id number] Name: MY JAMA Rep #: [id number] : 1960 Provider: Elliott Friend, DO Age/Sex: 64/M Location: [facility] Status: Signed Intake Vital Signs 01/05/25 11:22 [...] to the office today for follow up. [facility] established for management of mouth [...] in the (more content not included)... Normal [facility] Radiation Oncology Visiton 0 02-02-2025 Radiation Oncology Visit [facility] [address] [place] [address] OFFICE VISIT Date of Service: 02/02/25928 MR#: [id number] Acct: [id number] Name: MY JAMA Rep #: [id number] : 1960 From: Santiago Verito DO Age/Sex: 64/M Location: [facility] Status: Signed Intake Vital Signs 08/06/24 09:41 [...] targeted left tonsillectomy (01/30/2019). From 02/10/2019 ??? 7/3/ (more content not included)... Normal [facility] SP/HP.Ralph 01-21-2025 SP/HP.SPRJASEN [facility] Speech Pathology [facility] [facility] [place] [address] / REEVALUATION / MEDICARE RECERTIFICATION SPEECH THERAPY MR#: [id number] Acct: [id number] Name: MY JAMA Rep #: [id number] : 1960 64 From: Latosha Boyer M.A., [facility]-ASSOCIATE SALES MANAGER Referring Dr.: Dr. Santiago Sellers, Insurance: [employer] S[employer] SELF PAY INSURANCE Visit History Visit Info Date of Eval: 03/17/24 Visit: 1 Insurance Date Limit: 12/26/24 Marine Underwriter: SURJIT History Attending Doctor: Referring Doctor: Reason [...] intake. Hx of esophageal dysphagia managed by pleating machine operator, Dr. Akhtar, s/p EGD w/ botox injection [...] current prescribed condition?: No Personal Preferred language: Finnish Patient Allergies Allergies Allergies: Allergies No Known [...] measured fro (more content not included)... Normal [facility] Oncology Visit Reporton 12-22 Oncology Visit Report [facility] [address] [place] [address] OFFICE VISIT Date of Service: 01/05/25 1103 MR#: [id number] Acct: [id number] Name: MY JAMA Rep #: [id number] : 1960 From: Quincy Simpson MD Age/Sex: 64/M Location: [facility] Status: Signed HPI Subjective Date [...] FINDINGS: Supraclavicular: No acute process within the xynlo-wl-oqvg. Body wall soft tissues: No acute process. [...] AE1-3 (AE1/AE3/PCK26) positive CK7 (OV-TL12/30) negative CK8 (79tdbtL96) positive, weak CK20 (KS20.8) negative TTF-1 (8G7G3/1) [...] 2019 PE (more content not included)... Normal [facility] Chest WITH Contraston 2024 Chest WITH Contrast [facility] Imaging Services [address] [place] [address] Chest WITH Contrast MR#: [id number] Acct: [id number] Name: MY JAMA Rep #: [id number] : 1960 M 64 From: Nayely Whyte MD PCP: Sadie Santiago NP-C Status: REG CLI Study: Chest WITH Contrast Date of Exam: 12/29/24 Exam# [id number] Ordering Dr: Quincy Simpson MD PROCEDURE: CHEST [...] right upper lobe. [place] Location: [facility] CC: YARI Santiago; Dr. Quincy Simpson MD Marketing Proposal Specialist: Signed Normal [facility] Modified Barium Swallow Stud yon 12-17-2024 Modified Barium Swallow Study [facility] Speech Pathology [address] [place] [address] Modified Barium Swallow Study MR#: [id number] Acct: [id number] Name: MY JAMA Rep #: [id number] : 1960 64 From: Latosha Boyer M.A. [facility]-ASSOCIATE SALES MANAGER Verbal discussion with patient about POC 12/18/2024: ASSOCIATE SALES MANAGER attempted to call the patient 12/17/[address] POC after interpretation of MBSS, but pt had phone difficulties. Pt came into the office 12/18/2024 for this discussion. Unfortunately, the patient is not a candidate for participation in [place] [facility] (MDTP) following results of MBSS revealing silent aspiration. Pt also has contraindications including severe fibrosis, presence of trach, and esophageal dysphagia. ASSOCIATE SALES MANAGER recommended continuing with therapy 3- 4X/week, X3-5 weeks for implementation of oropharyngeal strengthening, jaw ROM, and neck ROM exercises in junction w/ myofascial release. Pt is unable to attend therapy this coming Saturday, and the ASSOCIATE SALES MANAGER is out of the office this upcoming Saturday. Myofascial release is best completed in a more intensive therapy model (ASSOCIATE SALES MANAGER recommends 3-4X/week, X3-5 weeks) to be effective. Pt requested resuming dysphagia therapy after ASSOCIATE SALES MANAGER submits re-evaluation as he would only be [...] intake. Hx of esophageal dysphagia managed by pleating machine operator, Dr. Akhtar, s/p EGD w/ botox injection [...] patient was interested in the program, so ASSOCIATE SALES MANAGER recommended this MBSS as re- (more content not included)... Normal [facility] EGD Reporton 10-21-2024 EGD Report [facility] Medical Records Department [address] [place] [address] EGD Report MR#: [id number] Acct: [id number] Name: MY JAMA Rep #: [id number] : 1960 64 From: Elliott Akhtar DO PCP: YARI Sanitllan Status:REG [facility] Patient Name: My Jama Procedure Date: 10/21/2024 [...] present medications. Procedure Code(s): --- Professional --- 04394, Esophagogastroduodenosc opy, flexible, transoral; with insertion of guide wire followed by passage of dilator(s) through esophagus over guide wire CPT copyright 2021 [employer]. All rights reserved. The codes documented in this report are preliminary and upon foot orthopedist review may be revised to meet current compliance requirements. Elliott Akhtar DO 10/21/2024 7:30:22 AM This report has been signed electronically. Number of Addenda: 0 Note Initiated On: 10/21/2024 6:29 AM 10/21/24730 Date Elliott Akhtar DO Cosigner Signature: Date (if indicated) CC: YARI Santiago; Elliott Akhtar DO Date Dictated: 10/21/24628 Date Transcribed: Marketing Proposal Specialist: BK Signed [facility] MR/POSTOP.ANCELMO 10-21-2024 MR/POSTOP.[facility] Medical Records Department [address] [place] [address] Anesthesia Postop Eval I 10/21/24730 MR#: [id number] Acct: [id number] Name: MY JAMA Rep #: [id number] : 1960 64 From: Romulo Lockett PCP: YARI Santillan Status:REG SDC Y Race: C Location: [place] [address] Anesthesia: Postop Eval I Current Vital Signs [...] Eval 1 completed: Yes 10/21/24731 Date Romulo Riosigner Signature: Date CC: Signed Normal [facility] MR/LVPDXPZG4cg 10-21-2024 [facility] Medical Records Department [address] [place] [address] Anesthesia Postop Eval II 10/21/24832 MR#: [id number] Acct: [id number] Name: MY JAMA Yamilet Rep #: [id number] : 1960 64 From: Ankit Clarke MD PCP: Sadie Santiago BMET-C Status:[facility] Y Race: C Location: EN [...] MD Cosigner Signature: Date CC: Signed Normal [facility] Oncology Visit Reporton Oncology Visit Report [facility] [address] [place] [address] OFFICE VISIT Date of Service: 09/28/24 1202 MR#: [id number] Acct: [id number] Name: MY JAMA Rep #: [id number] : 1960 From: Quincy Simpson MD Age/Sex: 64/M Location: [facility] Status: Signed HPI Subjective Date [...] FINDINGS: Supraclavicular: No acute process within the hbzyf-un-vgyf. Body wall soft tissues: No acute process. [...] AE1-3 (AE1/AE3/PCK26) positive CK7 (OV-TL12/30) negative CK8 (02qbqdT82) positive, weak CK20 (KS20.8) negative TTF-1 (8G7G3/1) [...] 2019 PE (more content not included)... Normal [facility] SP/HP.SPREEVon 09-22-2024 SP/HP.SPRV [facility] Speech Pathology [facility] [address] [place] [address]. [address] [place] [address] / REEVALUATION / MEDICARE RECERTIFICATION SPEECH THERAPY MR#: [id number] Acct: [id number] Name: MY JAMA Rep #: [id number] : 1960 64 From: Latosha Boyer M.A., [facility]-ASSOCIATE SALES MANAGER Referring Dr.: Dr. Santiago Sellers, Insurance: [employer] SELF PAY INSURANCE Visit History Visit Info Date of Eval: 03/17/24 Visit: 23 Insurance Date Limit: 09/22/24 Marine Underwriter: SURJIT History Attending Doctor: Referring Doctor: Reason [...] intake. Hx of esophageal dysphagia managed by pleating machine operator, Dr. Akhtar, s/p EGD w/ botox injection [...] current prescribed condition?: No Personal Preferred language: Finnish Patient Allergies Allergies Allergies: Allergies No Known [...] improve and (more content not included)... Normal [facility] Chest Insp/Exp 2 Viewon 12-2 Chest Insp/Exp 2 View [facility] Imaging Services [address] [place] [address] Chest Insp/Exp 2 View MR#: [id number] Acct: [id number] Name: MY JAMA Rep #: [id number] : 1960 M 64 From: Narendra Kincaid MD PCP: Sadie Santiago BMET-C Status: REG CLI Study: Chest Insp/Exp 2 View Date of Exam: 09/15/24 Exam# [id number] Ordering Dr: Loretta Jade [id number] STUDY: X-RAY CHEST REASON FOR EXAM: Male, [...] at 12:46 EST , CC: YARI Santiago; ERWINC Loretta Jade Marketing Proposal Specialist: Signed Normal [facility] Chest Insp/Exp 2 View [facility] Imaging Services [address] [place] [address] Chest Insp/Exp 2 View MR#: [id number] Acct: [id number] Name: MY JAMA Rep #: [id number] : 1960 64 From: Narendra Kincaid MD PCP: YARI Santillan Status: REG CLI Study: Chest Insp/Exp 2 View Date of Exam: 09/15/24 Exam# [id number] Ordering Dr: Loretta Jade [id number] STUDY: X-RAY CHEST REASON FOR EXAM: Male, [...] EST , CC: YARI Santiago; YARI Jade Marketing Proposal Specialist: Signed Normal [facility] International normalized rat io (INR) calculationOrdered By: Loretta Jade on 09-15-2024 INR Coag (Bld) [Relative time] 1.0 {INR} [facility] Operative Reporton Operative Report [facility] Medical Records Department [address] [place] [address] Operative Report 09/15/24 1122 MR#: [id number] Acct: [id number] Name: MY JAMA Rep #: [id number] : 1960 64 From: Loretta UBNN PCP: YARI Santillan Status:REG CLI Location: CT Problems Associated Problem List Diagnoses (1) Right upper lobe pulmonary nodule: Procedures Radiology Radiology CT Procedures: 55510 Biopsy Lung Operative Report (Standard) Operative Information Date of Procedure: 09/15/24 Pre-Operative Diagnosis: right upper lobe lung nodule Post-Operative Diagnosis: right upper lobe lung nodule Surgery/Procedure Performed: ct guided lung biopsy nut sheller: No Type of Anesthesia: IV Sedation Procedure [...] CC: YARI Santiago; YARI Jade; Dr. Quincy Smipson MD Signed Normal [facility] Partial Thromboplast Timeon 09-15-2024 aPTT Coag (Bld) [Time] 31.3 s Normal 24.1-36.2 [facility] Comment on above: Performed By: #### L 100.1900, L300.3900, L300.4310 ####[facility] [address] [place], [address] Platelet countOrdered By: Christal Jade on 09-15-2024 Platelets (Bld) [#/Vol] 291 10*3/uL Normal 150-450 [facility] Comment on above: Performed By: #### L 100.1900, L300.3900, L300.4310 #### [facility] Laboratory [address] [facility] [place], [address] Prothrombin Time w/INRon INR Coag (PPP) [Relative time] 1.0 {INR} Normal [facility] Comment on above: Performed By: #### L 100.1900, L300.3900, L300.4310 ####[facility] [address] [place], [address] PT Coag (PPP) [Time] 12.8 s Normal 11.7-14.9 [facility] Comment on above: Performed By: #### L 100.1900, L300.3900, L300.4310 ####[facility] [address] [place], [address] Prothrombin timeOrdered By: Loretta Jade on 09-15-2024 PT Coag (PPP) [Time] 12.8 s 11.7-14.9 [facility] Special Stain Group IIon Special Stain Group II ------ Patient Age/Sex Location Account Attending Physician MY JAMA 64/M CT [id number] Dr. Quincy Simpson MD Specimen: [id number] Received: 09/15/24 Status: ALEX Manley Num: [id number] Spec Type: ASP RAD Subm Dr: Dr. [...] submitted in one cassette. /SJ:twin 09/15/24 TC:5 [facility] [place] [address], [id number]: Patient Age/Sex Location Account Attending Physician MY JAMA 64/M CT [id number] Dr. Quincy Simpson MD Signed (signature on file) Dr. Laurent Cope MD 09/17/24 1223 Normal [facility] Comment on above: Performed By: #### P SSII ####[facility] [address] [place], [address] aPTT Coag (PPP) [Time]Ericka tyler By: Loretta Jade on 09-15-2024 aPTT Coag (Bld) [Time] 31.3 s 24.1-36.2 [facility] Oncology Visit Reporton 08-23 Oncology Visit Report [facility] [address] [place] [address] OFFICE VISIT Date of Service: 09/07/24 1341 MR#: [id number] Acct: [id number] Name: MY JAMA Rep #: [id number] : 1960 From: Quincy Simpson MD Age/Sex: 64/M Location: [facility] Status: Signed HPI Subjective Date [...] FINDINGS: Supraclavicular: No acute process within the ckqzk-gz-bjmc. Body wall soft tissues: No acute process. [...] AE1-3 (AE1/AE3/PCK26) positive CK7 (OV-TL12/30) negative CK8 (01nqfzN77) positive, weak CK20 (KS20.8) negative TTF-1 (8G7G3/1) [...] 2019 PE (more content not included)... Normal [facility] CREATININE FINGERSTICKon CREATININE WB < 1.0 Normal 0.70-1.30 [facility] Comment on above: Performed By: #### L 9100.0200 ####[facility] [address] [place], [place], [address] EGFR WB > 60.0000 Normal >60 [facility] Comment on above: Performed By: #### L 9100.0200 ####[facility] [address] [place], [address] Chest WITH Contraston 2023 Chest WITH Contrast [facility] Imaging Services [address] [place] [address] Chest WITH Contrast MR#: [id number] Acct: [id number] Name: MY JAMA Rep #: [id number] : 1960 M 64 From: Bib ghosh MD PCP: Sadie Santiago NP-C Status: REG CLI Study: Chest WITH Contrast Date of Exam: 08/25/24 Exam# [id number] Ordering [place]: [place] [id number] STUDY: CT CHEST WITH CONTRAST REASON FOR [...] CC: YARI Santiago; Dr. Quincy Simpson MD Marketing Proposal Specialist: Signed Normal [facility] Creatinine measurement at dsideOrdered By: Quincy Simpson on 08-25-2024 Bedside Creatinine < 1.0 mg/dL 0.70-1.30 [facility] EGFROrdered By: Quincy peters on 08-25-2024 Bedside Estimated GFR (eGFR) > 60.0000 mL/min >60 [facility] Gastroenterology Visit Repor ton 08-14-2024 Gastroenterology Visit Report [facility] [address] [place] [address] OFFICE VISIT Date of Service: 08/14/24 MR#: [id number] Acct: [id number] Name: MY JAMA Rep #: [id number] : 1960 Provider: Elliott Akhtar DO Age/Sex: 64/M Location: [facility] Status: Signed Intake Vital Signs 02/03/24 14:06 [...] to the office today for follow up. [facility] established for management of mouth [...] forceps for evaluation of eosinophilic esophagitis. OV 02.10.24 pt reports continued difficulty swallowing. EGD 02.20.24 The nasopharynx and oropharynx are abnormal. Benign-appearing esophageal stenosis. Dilated. Injected with botulinum toxin. No gross lesions in the entire stomach. No gross lesions in the duodenal bulb. No specimens collected. Modified Barium Swallow 10.2.24 Severe oropharyngeal dysphagia OV 11.22.24 pt reports continued difficulty swallowing, denies other GI symptoms of concern at this time. Exam Const General: cooperative and comfortable Nutritional Appearance: average body habitus a (more content not included)... Normal [facility] Radiation Oncology Visiton 1 10-06-2023 Radiation Oncology Visit [facility] [address] [place] [address] OFFICE VISIT Date of Service: 08/06/24937 MR#: [id number] Acct: [id number] Name: MY JAMA Rep #: [id number] : 1960 From: Santiago Sellers DO Age/Sex: 64/M Location: [facility] Status: Signed Intake Vital Signs 02/03/24 14:06 [...] 6996 cG (more content not included)... Normal [facility] SP/HP.SPREEVosae 07-17-2024 SP/HP.SPRV [facility] Speech Pathology [facility] [address] [place] [address]. [address] [place] [address] / REEVALUATION / MEDICARE RECERTIFICATION SPEECH THERAPY MR#: [id number] Acct: [id number] Name: MY JAMA Rep #: [id number] : 1960 64 From: Latosha Boyer M.A., [facility]-ASSOCIATE SALES MANAGER Referring DrBianca: Dr. Santiago Sellers DO Insurance: [employer] SELF PAY INSURANCE Visit History Visit Info Date of Eval: 03/17/24 Visit: 1 Marine Underwriter: SURJIT History Attending Doctor: Referring Doctor: Reason [...] intake. Hx of esophageal dysphagia managed by pleating machine operator, Dr. Akhtar, s/p EGD w/ botox injection [...] current prescribed condition?: No Personal Preferred language: Finnish Patient Allergies Allergies Allergies: Allergies No Known [...] 3- 5 (more content not included)... Normal [facility] Basophil percentageOrdered B y: Quincy Simpson on 07-29-2023 Basophil percentage < 0.9 mg/dL 0.70-1.30 [facility] No Panel InformationOrdered By: Quincy Simpson on 07-29-2023 Bedside Estimated GFR (eGFR) > 60.0000 mL/min >60 [facility] CBC, PLATELETS & AUT DIFF (2 1635)Ordered By: Client Hr Manager on 07-22-2023 Basophils (Bld) [#/Vol] 0.0 10*3/uL [...] MCHC (RBC) [Mass/Vol] 33.5 g/dL Normal 31.5-35.7 [facility]; [facility] Work Phone: MCV (RBC) [Entitic vol] 92 fL Normal 79-97 [facility]; [facility] Work Phone: Monocytes (Bld) [#/Vol] 0.5 10*3/uL Normal 0.1-0.9 [facility]; [facility] Work Phone: Monocytes/100 WBC (Bld) 8 % Normal [facility]; [facility] Work Phone: Neutrophils (Bld) [#/Vol] 4.2 10*3/uL Normal 1.4-7.0 [facility] Internal Medicine; [facility] Work Phone: Neutrophils/100 WBC (Bld) 70 % Normal [facility] Internal Medicine; [facility] Work Phone: Platelets (Bld) [#/Vol] 284 10*3/uL Normal 150-450 [facility]; [facility] Work Phone: RBC (Bld) [#/Vol] 4.29 10*6/uL Normal 4.14-5.80 [facility]; [facility] Work Phone: WBC (Bld) [#/Vol] 6.0 10*3/uL Normal 3.4-10.8 [facility] Internal Medicine; [facility] Work Phone: METABOLIC PANEL, COMPREHENSI VE ([phone])Ordered By: Client Hr Manager on 07-22-2023 Albumin [Mass/Vol] 4.2 g/dL Normal 3.9-4.9 [facility] Internal Medicine; [facility] Work Phone: Albumin/Globulin [Mass ratio] 1.4 {ratio} Normal 1.2-2.2 [facility] Internal Medicine; [facility] Work Phone: ALP [Catalytic activity/Vol] 103 U/L Normal 44-121 [facility]; [facility] Work Phone: ALT [Catalytic activity/Vol] 15 U/L Normal 0-44 [facility] Internal Medicine; [facility] Internal Medicine Work Phone: AST [Catalytic activity/Vol] 20 U/L Normal 0-40 [facility] Internal Medicine; [facility] Internal Medicine Work Phone: Bilirubin [Mass/Vol] 0.4 mg/dL Normal 0.0-1.2 [facility]; [facility] Internal Medicine Work Phone: Calcium [Mass/Vol] 9.4 mg/dL Normal 8.6-10.2 [facility] Internal Medicine; [facility] Internal Medicine Work Phone: Chloride [Moles/Vol] 101 mmol/L Normal 96-106 [facility] Internal Medicine; [facility] Internal Medicine Work Phone: CO2 [Moles/Vol] 26 mmol/L Normal 20-29 [facility] Internal Medicine; [facility] Internal Medicine Work Phone: Creatinine [Mass/Vol] 0.49 mg/dL Abnormal 0.76-1.27 [facility] Internal Medicine; [facility] Internal Medicine Work Phone: Globulin (S) [Mass/Vol] 2.9 g/dL Normal 1.5-4.5 [facility] Internal Medicine; [facility] Internal Medicine Work Phone: Glucose [Mass/Vol] 108 mg/dL Abnormal 70-99 [facility] Internal Medicine; [facility] Internal Medicine Work Phone: Potassium [Moles/Vol] 4.4 mmol/L Normal 3.5-5.2 [facility] Internal Medicine; [facility] Internal Medicine Work Phone: Protein [Mass/Vol] 7.1 g/dL Normal 6.0-8.5 [facility] Internal Medicine; [facility] Internal Medicine Work Phone: Sodium [Moles/Vol] 140 mmol/L Normal 134-144 [facility] Internal Medicine; [facility] Internal Medicine Work Phone: Urea nitrogen [Mass/Vol] 14 mg/dL Normal 8-27 [facility] Internal Medicine; [facility] Internal Medicine Work Phone: Urea nitrogen/Creatinine [Mass ratio] 29 mg/mg Abnormal - [facility]; [facility] Work Phone: METABOLIC PANEL, COMPREHENSIVE ([phone]) 117 mL/min/1.73 Normal [facility] Internal [facility]; [facility] Work Phone: THYROXINE FREE ([phone])Ordere d By: Client Hr Manager on 07-22-2023 Free T4 [Mass/Vol] 1.44 ng/dL Normal 0.82-1.77 Compre [facility]; [facility] Work Phone: TSH (THYROID STIMULATING HOR NIK) ([phone])Ordered By: Client Hr Manager on 07-22-2023 TSH Qn 2.430 {uIU/mL} Normal [...] Apr 25 2023 4:16PM EST (Author) Normal [employer] Office Visit (Audiology)on 04-04-2023 Follow-up visit Diagnoses/Problems [...] Nom (Unsp spec) No anaerobic bacteria isolated. [facility] Gram stain for investigation of transfusion reactionOrdered By: Joya Galvez on 04-03-2023 Microscopic observation Gram stain Nom (Unsp spec) [facility] Routine wound cultureOrdered By: Joya Galvez on 04-03-2023 Bacteria identified Cx Nom (Wound) No growth aerobically. 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 He has had routine follow-ups on his [...] Capsule Vitals Vital Signs Recorded: 06Mar2023 08:52AM Xbvqwzqaztl68.4 F Heart Rate76 Npyadqtz907 Pnashputr47 Height5 ft 5.5 in Iknkdz637 lb BMI Ibtemgiobw06.48 kg/m2 BSA Calculated1.63 Tobacco Useb) No Falls [...] conjunctivitis. EAR (more content not included)... Normal [facility] Office Visit (Audiology)on 03-06-2023 Follow-up visit Diagnoses/Problems [...] hearing loss for both ears. Speech: Speech temporary receptionist thresholds were in good agreement with pure tone testing. Speech discrimination results were good at elevated presentation levels. Signatures Electronically signed by : Aleks Quiroz; Mar 06 2023 9:30AM EST (Author) Normal [employer] Tobacco Screening.on 023 Fall risk assessment a) No falls within the last year [facility] Work Phone: Tobacco use status CP b) No M [facility] Work Phone: Established Visit (Otolaryng ology)on 02-25-2023 [...] here for cancer follow up. He has I6V2oS5 oral cavity SCCa s/p triple, trach, PEG, [...] He continues to be followed at the [facility]. Continues with Shitone XLT, caps during day. Wound has continued to heal very slowly but is smaller. He comes in today with a new XLT trach for his trach change since we didn't have one in clinic last month. No other concerns. Overall doing ok. 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 Patient completed adjuvant chemoradiation on 02/06/22. History: Dx1: PqX5wY2 left neck (unknown primary) 2018 Dx2: B2J7wO6 SCCa of the oral cavity 202004/28/18: +odynophagia, [...] no lymphadenopathy 09/12: [facility] 10/14: PET FDG avid [...] entries m (more content not included)... Normal [employer] Tobacco Screening.on 023 Adult depression screening assessment No [facility] Work Phone: Fall risk assessment a) No falls within the last year [facility] Work Phone: Tobacco use status CPHS b) No M [facility] Work Phone: Anaerobic cultureOrdered By: Joya Galvez on 02-17-2023 Bacteria identified Anaer cx Nom (Unsp spec) No anaerobic bacteria isolated. [facility] Bacteria identified Cx Nom ( Wound)Ordered By: Joya Galvez on 02-15-2023 Wound Culture Staphylococcus aureus [facility] Gram stain for investigation of transfusion reactionOrdered By: Joya Galvez on 02-14-2023 Microscopic observation Gram stain Nom (Unsp spec) [facility] Anaerobic cultureOrdered By: Joya Galvez on 02-13-2023 Bacteria identified Anaer cx Nom (Unsp spec) No anaerobic bacteria isolated. [facility] Bacteria identified Cx Nom ( Wound)Ordered By: Joya Galvez on 02-13-2023 Wound Culture Staphylococcus aureus [facility] Gram stain for investigation of transfusion reactionOrdered By: Joya Galvez on 02-13-2023 Microscopic observation Gram stain Nom (Unsp spec) [facility] Basophil percentageOrdered B y: Dr. 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 MY JAMA, is here for cancer follow up. He has V8L8xG1 oral cavity SCCa s/p triple, trach, PEG, [...] He continues to be followed at the [facility]. Continues with Amber SCOTT, caps during day. Wound has continued to heal very slowly but is smaller. He has a history of F7I0kN5 oral cavity SCCa with chin involvement s/p triple, trach, PEG, composite resection, excision of skin and soft tissue, segmental mandibulectomy, right neck dissection, left neck exploration for vessels, reconstruction with left ALT and left fibular free flap on 11/07/21. Patient completed adjuvant chemoradiation on 02/06/22. History: Dx1: MyC1uA7 left neck (unknown primary) 2018 Dx2: E6Z0lV8 SCCa of the oral cavity 202004/28/18: +odynophagia, [...] no lymphadenopathy 09/12: [facility] 1/22: PET FDG avid oral cavity mass w/bone [...] Estimated GFR (eGFR) > 60.0000 mL/min >60 [facility] Scre[facility].on 023 Fall risk assessment a) No falls within the last year [facility] [facility] Work Phone: Tobacco use status CPHS b) No M [facility] [facility] Work Phone: LIPID PANEL ([phone])Ordered B y: Client Hr Manager on 01-17-2023 Cholesterol [Mass/Vol] 130 mg/dL Normal 100-199 [facility]; [facility] Work Phone: Cholesterol in HDL [Mass/Vol] 43 mg/dL Normal [facility]; [facility] Work Phone: Triglyceride [Mass/Vol] 59 mg/dL Normal 0-149 C [facility]; [facility] Work Phone: LIPID PANEL ([phone]) 13 mg/dL Normal 5-40 Compr [facility]; [facility] Work Phone: LIPID PANEL ([phone]) 74 mg/dL Normal 0-99 Compr [facility]; [facility] Work Phone: LIPID PANEL ([phone]) 1.7 {ratio} Normal 0.0-3.6 [facility]; [facility] Work Phone: THIAMINE (B-1) ([phone])Ordere d By: Client Hr Manager on 01-17-2023 Thiamine (Bld) [Moles/Vol] 148.3 nmol/L Normal 66.5-200.0 [facility]; [facility] Work Phone: TSH (THYROID STIMULATING HOR NIK) ([phone])Ordered By: Client Hr Manager on 01-17-2023 TSH Qn 0.172 {uIU/mL} Abnormal 0.450-4.50 0 [facility]; [facility] Work Phone: VITAMIN B12 AND FOLATES ([phone])Ordered By: Client Hr Manager on 01-17-2023 Cobalamin (Vitamin B12) [Mass/Vol] 640 pg/mL Normal 232-1245 [facility]; [facility] Work Phone: Folate [Mass/Vol] ng/mL Normal Compreh ensive [facility]; [facility] Work Phone: Bacteria identified Anaer cx Nom (Unsp spec)Ordered By: Joya Galvez on 01-13-2023 Anaerobic Culture Anaerobic cocci [facility] Bacteria identified Cx Nom ( Wound)Ordered By: Joya Galvez on 01-12-2023 Wound Culture Pseudomonas aeruginosa [facility] Wound Culture Meth. resistant Stap h. aureus [facility] Gram stain for investigation of transfusion reactionOrdered By: Joya Galvez on 01-10-2023 Microscopic observation Gram stain Nom (Unsp spec) [facility] Bacteria identified Anaer cx Nom (Unsp spec)Ordered By: Joya Galvez on 01-09-2023 Anaerobic Culture Anaerobic cocci [facility] Bacteria identified Cx Nom ( Wound)Ordered By: Joya Galvez on 01-09-2023 Wound Culture Pseudomonas aeruginosa [facility] Wound Culture Meth. resistant Stap h. aureus [facility] Gram stain for investigation of transfusion reactionOrdered By: Joya Galvez on 01-09-2023 Microscopic observation Gram stain Nom (Unsp spec) [facility] Absolute lymphocyte countOrd ered By: Dr. Simpson on 11-21-2022 Lymphocytes Auto (Unsp spec) [#/Vol] 1.62 10*3/uL 0.83-4.51 [facility] Basophil percentageOrdered B y: Dr. Simpson on 11-21-2022 Basophils/100 WBC (Bld) 0.4 % 0-1 [facility] Bilirubin [Mass/Vol] 0.20 mg/dL 0.20-1.00 [facility] Comment on above: For patients on eltr ombopag therapy, use of Dimension [place] TBIL is not recommended. Chloride [Moles/Vol] 103 mmol/L 98-107 [facility] Eosinophils/100 WBC (Bld) 0.6 % 0-5 [facility] Glucose [Mass/Vol] 105 mg/dL 74-106 [facility] Comment on above: Fasting Glucose resu lt from 100 to 125 mg/dL suggests IMPAIRED HOMEOSTASIS per A.D.A. criteria. Neutrophils (Bld) [#/Vol] 3.2 10*3/uL 2.0-7.7 [facility] Neutrophils/100 WBC (Bld) 58.7 % 47-70 [facility] Potassium [Moles/Vol] 4.3 mmol/L 3.5-5.1 [facility] Protein [Mass/Vol] 7.8 g/dL 6.4-8.2 [facility] Sodium [Moles/Vol] 139 mmol/L 136-145 [facility] WBC (Bld) [#/Vol] 5.4 10*3/uL 4.4-11.0 [facility] Blood erythrocytes count (nu mber/volume)Ordered By: Dr. Simpson on 11-21-2022 RBC (Bld) [#/Vol] 4.37 10*6/uL 4.6-6.2 [facility] Blood hemoglobin measurement (mass/volume)Ordered By: Dr. Simpson on 11-21-2022 Hemoglobin (Bld) [Mass/Vol] 12.8 g/dL 13.0-16.5 [facility] Blood lymphocytes/100 leukoc ytesOrdered By: Dr. Simpson on 11-21-2022 Lymphocytes/100 WBC (Bld) 29.8 % 19-41 [facility] Blood monocytes/100 leukocyt esOrdered By: [address] Simpson on 11-21-2022 Monocytes/100 WBC (Bld) 10.1 % 0-10 [facility] Blood platelet mean volumeOr dered By: Dr. Simpson on 11-21-2022 Platelet mean volume (Bld) [Entitic vol] 10.7 fL 6.2-12.0 [facility] Determination of erythrocyte mean corpuscular volume (MCV)Ordered By: Dr. Simpson on 11-21-2022 MCV (RBC) [Entitic vol] 92.2 fL 80-94 [facility] Hematocrit Auto (Bld) [Volum e fraction]Ordered By: Dr. Simpson on 11-21-2022 Hematocrit (Bld) [Volume fraction] 40.3 % 40-54 [facility] Laboratory - Chemistry and C hemistry - challengeOrdered By: Dr. Simpson on 11-21-2022 ALP [Catalytic activity/Vol] 108 U/L 45-117 [facility] ALT [Catalytic activity/Vol] 26 U/L 16-61 [facility] CO2 [Moles/Vol] 31.0 mmol/L 21.0-32.0 [facility] Globulin (S) [Mass/Vol] 4.4 g/dL 2.2-4.2 [facility] Urea nitrogen/Creatinine [Mass ratio] 39.5 mg/mg 10-20 [facility] Laboratory - Hematology and Cell countsOrdered By: Dr. Simpson on 11-21-2022 Erythrocyte distribution width (RBC) [Entitic vol] 47.3 fL 35.1-43.9 [facility] Erythrocyte distribution width (RBC) [Ratio] 13.9 % 11.6-14.6 [facility] Immature granulocytes/100 WBC (Bld) 0.400 % 0.0-0.9 [facility] Comment on above: IG% - Immature Granu locytes (promyelocytes, myelocytes and metamyelocytes) > 1% indicates that a LEFT SHIFT is Present. MCH (RBC) [Entitic mass] 29.3 pg 27.0-32.0 [facility] Nucleated RBC/100 WBC (Bld) [Ratio] 0 % 0-5 [facility] MCHC Auto (RBC) [Mass/Vol]Or dered By: Dr. Simpson on 11-21-2022 MCHC (RBC) [Mass/Vol] 31.8 g/dL 32-36 [facility] No Panel InformationOrdered By: Dr. Simpson on 11-21-2022 Estimated Creatinine Clearance Calc 139.13 ml/min [facility] Estimated GFR (MDRD) Amer 242 mL/min >60 [facility] Comment on above: GFR Calc Estimated GFR (MDRD) Non-Af Amer 200 mL/min >60 [facility] Comment on above: Non- GFR Calc Platelets bldOrdered By: Dr. Simpson on 11-21-2022 Platelets (Bld) [#/Vol] 270 10*3/uL 150-450 [facility] Serum or plasma albumin yesi urement (mass/volume)Ordered By: Dr. Simpson on 11-21-2022 Albumin [Mass/Vol] 3.4 g/dL 3.2-5.0 [facility] Serum or plasma albumin/glob ulin mass ratioOrdered By: Dr. Simpson on 11-21-2022 Albumin/Globulin [Mass ratio] 0.8 {ratio} 0.9-2.4 [facility] Serum or plasma calcium yesi urement (mass/volume)Ordered By: Dr. Simpson on 11-21-2022 Calcium [Mass/Vol] 9.2 mg/dL 8.5-10.1 [facility] Serum or plasma creatinine m easurement (mass/volume)Ordered By: Dr. Simpson on 11-21-2022 Creatinine [Mass/Vol] 0.46 mg/dL 0.70-1.30 [facility] Comment on above: The validity of the calculated GFR & GFRAA in patients over 70 years has not been determined. Clinical correlation is essential. Serum or plasma urea nitroge n measurement (mass/volume)Ordered By: Dr. Simpson on 11-21-2022 Urea nitrogen [Mass/Vol] 18 mg/dL 7-18 [facility] Thin prep Papanicolaou smear with manual screeningOrdered By: Dr. Simpson on 11-21-2022 Thin prep Papanicolaou smear with manual screening 17 U/L 15-37 [facility] Thin prep Papanicolaou smear with manual screening 5 5-15 [facility] Anaerobic cultureOrdered By: Joya Galvez on 11-17-2022 Bacteria identified Anaer cx Nom (Unsp spec) No anaerobic bacteria isolated. [facility] Bacteria identified Cx Nom ( Wound)Ordered By: Joya Galvez on 11-16-2022 Wound Culture Escherichia coli [facility] Wound Culture Pseudomonas aeroginosa [facility] Gram stain for investigation of transfusion reactionOrdered By: Joya Galvez on 11-14-2022 Microscopic observation Gram stain Nom (Unsp spec) [facility] Bacteria identified Anaer cx Nom (Unsp spec)Ordered By: Joya Galvez on 10-06-2022 Anaerobic Culture Anaerobic cocci [facility] Bacteria identified Cx Nom ( Wound)Ordered By: Joya Galvez on 10-05-2022 Wound Culture Meth. resistant Stap h. aureus [facility] Gram stain for investigation of transfusion reactionOrdered By: Joya Galvez on 10-03-2022 Microscopic observation Gram stain Nom (Unsp spec) [facility] TSHon 08-06-2022 TSH Qn 0.30 m[IU]/L Low 0.44 - 3.98 [facility] Comment on above: Result Comment: TSH testing is performed using different testing methodology at [facility] than at other [facility]. Direct result comparisons should only be made within the same method. Performed By: #### T SH2 #### [facility] [address] [place] [address] TSH - Thyroid Stimulating Ho Luis lemoson 08-06-2022 TSH Qn 0.30 m[IU]/L below low threshold See Below MG-Otolaryngol ogy-Admin [place] [address] Work Phone: Comment on above: Reference Range: 0.4 4 - 3.98 TSH testing is performed using different testing methodology at [facility] than at other [facility]. Direct result comparisons should only be made within the same method. Basophil percentageOrdered B y: Dr. Simpson on 07-24-2022 Basophil percentage < 0.9 mg/dL 0.70-1.30 [facility] No Panel InformationOrdered By: Dr. Simpson on 07-24-2022 Bedside Estimated GFR (eGFR) > 60.0000 mL/min >60 [facility] Bacteria identified Cx Nom ( Wound)Ordered By: Joya Galvez on 07-14-2022 Wound Culture Pseudomonas aeroginosa [facility] Wound Culture Streptococcus agalactiae (B) [facility] Bacteria identified Anaer cx Nom (Unsp spec)Ordered By: Joya Galvez on 07-13-2022 Anaerobic Culture Anaerobic cocci [facility] Gram stain for investigation of transfusion reactionOrdered By: Joya Galvez on 07-11-2022 Microscopic observation Gram stain Nom (Unsp spec) [facility] Established Visit (Otolaryng ology)on 06-18-2022 Established Visit (Otolaryngology) Diagnoses/Problems Xerostomia (527.7) (K11.7) Oropharyngeal dysphagia (787.22) (R13.12) Open wound of neck, subsequent encounter (V58.89,874.8) (S11.90XD) Cancer of oral cavity (145.9) (C06.9) 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 MY JAMA, is here for cancer follow up. He has X9D2qT3 oral cavity SCCa s/p triple, trach, PEG, [...] has going to weekly wound clinic at [facility]. They have been doing weekly debridements and then placed integra. There is a smell. He returns in 2 days. He is 4 months out from radiation now. He has a history of T9N3kF4 oral cavity SCCa with chin involvement s/p triple, trach, PEG, composite resection, excision of skin and soft tissue, segmental mandibulectomy, right neck dissection, left neck exploration for vessels, reconstruction with left ALT and left fibular free flap on 11/07/21. Patient completed adjuvant chemoradiation on 02/06/22. History: Dx1: [id number] left neck (unknown primary) 2018 Dx2: [id number] SCCa of the oral cavity 202004/28/18: +odynophagia, EGD +distal esophagitis, biopsies +reflux Late 11/11: First noticed left neck mass 3/25/19: 1st evaluation, for enlarging left neck mass [...] no lymphadenopathy 09/12: Oral cavity biopsy at [facility] +SCCa 10/14: PET FDG avid oral cavity [...] Qn 4.66 m[IU]/L High 0.44 - 3.98 [facility] Comment on above: Result Comment: TSH testing is performed using different testing methodology at [facility] than at other [facility]. Direct result comparisons should only be made within the same method. Performed By: #### T SH2 #### [facility] [address] [place] [address] TSH - Thyroid Stimulating Ho canelo, Serumon 06-18-2022 TSH Qn 4.66 m[IU]/L above high threshold See Below MG-Otolaryngol ogy-Admin [place] [address] Work Phone: Comment on above: Reference Range: 0.4 4 - 3.98 TSH testing is performed using different testing methodology at [facility] than at other [facility]. Direct result comparisons should only be made within the same method. Absolute lymphocyte counton 05-23-2022 Lymphocytes Auto (Unsp spec) [#/Vol] 1.03 10*3/uL 0.83-4.51 [facility] Work Phone: Basophil percentageOrdered B y: Dr. Simpson on 05-23-2022 Basophil percentage 3.9 mg/dL 2.5-4.9 [facility] Basophil percentageon 2021 Basophils/100 WBC (Bld) 0.4 % 0-1 [facility] Work Phone: Bilirubin [Mass/Vol] 0.20 mg/dL 0.20-1.00 [facility] Work Phone: Comment on above: For patients on eltr ombopag therapy, use of Dimension [place] TBIL is not recommended. Chloride [Moles/Vol] 99 mmol/L 98-107 [facility] Work Phone: Eosinophils/100 WBC (Bld) 0.4 % 0-5 [facility] Work Phone: Glucose [Mass/Vol] 105 mg/dL 74-106 [facility] Work Phone: Comment on above: Fasting Glucose resu lt from 100 to 125 mg/dL suggests IMPAIRED HOMEOSTASIS per A.D.A. criteria. Neutrophils (Bld) [#/Vol] 6.1 10*3/uL 2.0-7.7 [facility] Work Phone: Neutrophils/100 WBC (Bld) 76.7 % 47-70 [facility] Work Phone: Potassium [Moles/Vol] 4.1 mmol/L 3.5-5.1 [facility] Work Phone: Protein [Mass/Vol] 8.4 g/dL 6.4-8.2 [facility] Work Phone: Sodium [Moles/Vol] 135 mmol/L 136-145 [facility] Work Phone: WBC (Bld) [#/Vol] 7.9 10*3/uL 4.4-11.0 [facility] Work Phone: Blood erythrocytes count (nu mber/volume)on 05-23-2022 RBC (Bld) [#/Vol] 4.08 10*6/uL 4.6-6.2 [facility] Work Phone: Blood hemoglobin measurement (mass/volume)on 05-23-2022 Hemoglobin (Bld) [Mass/Vol] 11.0 g/dL 13.0-16.5 [facility] Work Phone: Blood lymphocytes/100 leukoc yteson 05-23-2022 Lymphocytes/100 WBC (Bld) 13.1 % 19-41 [facility] Work Phone: Blood monocytes/100 leukocyt eson 05-23-2022 Monocytes/100 WBC (Bld) 9.0 % 0-10 [facility] Work Phone: Blood platelet mean volumeon 05-23-2022 Platelet mean volume (Bld) [Entitic vol] 9.2 fL 6.2-12.0 [facility] Work Phone: Determination of erythrocyte mean corpuscular volume (MCV)on 05-23-2022 MCV (RBC) [Entitic vol] 86.8 fL 80-94 [facility] Work Phone: Hematocrit Auto (Bld) [Volum e fraction]on 05-23-2022 Hematocrit (Bld) [Volume fraction] 35.4 % 40-54 [facility] Work Phone: Laboratory - Chemistry and C hemistry - challengeon 05-23-2022 ALP [Catalytic activity/Vol] 109 U/L 45-117 [facility] Work Phone: ALT [Catalytic activity/Vol] 29 U/L 16-61 [facility] Work Phone: CO2 [Moles/Vol] 30.0 mmol/L 21.0-32.0 [facility] Work Phone: Globulin (S) [Mass/Vol] 4.9 g/dL 2.2-4.2 [facility] Work Phone: Urea nitrogen/Creatinine [Mass ratio] 31.7 mg/mg 10-20 [facility] Work Phone: Laboratory - Chemistry and C hemistry - challengeOrdered By: Dr. Simpson on 05-23-2022 Magnesium [Mass/Vol] 1.9 mg/dL 1.6-2.6 [facility] Laboratory - Hematology and Cell countson 05-23-2022 Erythrocyte distribution width (RBC) [Entitic vol] 51.3 fL 35.1-43.9 [facility] Work Phone: Erythrocyte distribution width (RBC) [Ratio] 16.1 % 11.6-14.6 [facility] Work Phone: Immature granulocytes/100 WBC (Bld) 0.400 % 0.0-0.9 [facility] Work Phone: Comment on above: IG% - Immature Granu locytes (promyelocytes, myelocytes and metamyelocytes) > 1% indicates that a LEFT SHIFT is Present. MCH (RBC) [Entitic mass] 27.0 pg 27.0-32.0 [facility] Work Phone: Nucleated RBC/100 WBC (Bld) [Ratio] 0 % 0-5 [facility] Work Phone: MCHC Auto (RBC) [Mass/Vol]on 05-23-2022 MCHC (RBC) [Mass/Vol] 31.1 g/dL 32-36 [facility] Work Phone: No Panel Informationon 05-23 Estimated Creatinine Clearance Calc 137.87 ml/min [facility] Work Phone: Estimated GFR (MDRD) Amer 233 mL/min >60 [facility] Work Phone: Comment on above: GFR Calc Estimated GFR (MDRD) Non-Af Amer 192 mL/min >60 [facility] Work Phone: Comment on above: Non- GFR Calc Platelets bldon 05-23-2022 Platelets (Bld) [#/Vol] 420 10*3/uL 150-450 [facility] Work Phone: Serum or plasma albumin yesi urement (mass/volume)on 05-23-2022 Albumin [Mass/Vol] 3.5 g/dL 3.2-5.0 [facility] Work Phone: Serum or plasma albumin/glob ulin mass ratioon 05-23-2022 Albumin/Globulin [Mass ratio] 0.7 {ratio} 0.9-2.4 [facility] Work Phone: Serum or plasma calcium yesi urement (mass/volume)on 08-31-2022 Calcium [Mass/Vol] 9.1 mg/dL 8.5-10.1 [facility] Work Phone: Serum or plasma creatinine m easurement (mass/volume)on 05-23-2022 Creatinine [Mass/Vol] 0.47 mg/dL 0.70-1.30 [facility] Work Phone: Comment on above: The validity of the calculated GFR & GFRAA in patients over 70 years has not been determined. Clinical correlation is essential. Serum or plasma urea nitroge n measurement (mass/volume)on 05-23-2022 Urea nitrogen [Mass/Vol] 15 mg/dL 7-18 [facility] Work Phone: Thin prep Papanicolaou smear with manual screeningon 05-23-2022 Thin prep Papanicolaou smear with manual screening 18 U/L 15-37 [facility] Work Phone: Thin prep Papanicolaou smear with manual screening 6 5-15 [facility] Work Phone: Established Visit (Otolaryng ology)on 05-14-2022 Established Visit (Otolaryngology) Diagnoses/Problems Former smoker (V15.82) (Z87.891) Adverse effect of radiation therapy, subsequent encounter (V58.89) (T66.XXXD) 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 Brooks evaluated you today. Your care plan is outlined below: -- You should have a PET scan now. have the med onc order it. -- Follow up with Dr. Brooks in 1 month. This appointment was scheduled at the end of your visit today. If you need to reschedule, please call the office at [phone]. Please keep in mind that last minute cancellations often result in delayed follow-up appointments. General appointment line please call [phone] For general questions or scheduling issues please call [phone] option #2 For medical questions or surgery scheduling please call [phone]. Please be sure to leave a voice [...] here for cancer follow up. He has D1S4dE8 oral cavity SCCa s/p triple, trach, PEG, [...] been referred to the wound clinic at [facility]. He goes once a week and they deride the wound. He has his trach capped today. He is currently on Levaquin for 14 days. He has been seen by [employer]GER and is advancing his diet. He is [...] last script. 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 Patient completed adjuvant chemoradiation on 02/06/22. History: Dx1: [id number] left neck (unknown primary) 2018 Dx2: [id number] SCCa of the oral cavity 202004/28/18: +odynophagia, [...] no lymphadenopathy 09/12: [facility] +[facility] 10/14: PET FDG avid oral cavity mass w/bone involvement SUV12, no lymphadenopathy or distant meta (more content not included)... Normal [employer] Tobacco Screening.on 022 Fall risk assessment a) No falls within the last year [facility]Otolaryngol [facility] Work Phone: Tobacco use status [facility] b) No M P-Otolaryngol [facility] Work Phone: Tobacco Screening.on Fall risk assessment a) No falls within the last year [facility]tolaryngol [facility] Work Phone: Tobacco use status [facility] b) No M [facility]Otolaryngol [facility] Work Phone: Cult, Misc + smearon Bacteria identified Cx Nom (Unsp spec) Abnormal MG-Otolaryngol ogy-[place] Work Phone: Tobacco Screening.on Fall risk assessment a) No falls within the last year [facility]tolaryngol [facility] Work Phone: Tobacco use status [facility] b) No M G-Otolaryngol o[facility]-[place] Work Phone: Metabolic Panel, Basic ([phone] [id number])Ordered By: Client Hr Manager on 02-22-2022 Calcium [Mass/Vol] 8.7 mg/dL Normal 8.7-10.2 Compre [facility] Internal [facility]; [facility] Work Phone: Comment on above: PATIENT NOT FASTINGP ERFORMED BY: CB [facility] [id number] [address] [facility] [id number] Chloride [Moles/Vol] 91 mmol/L Abnormal 96-106 Comp rehensive Internal Medicine; [facility] Work Phone: Comment on above: PATIENT NOT FASTINGP ERFORMED BY: CB [facility] [id number] Online[address] [place] [id number] CO2 [Moles/Vol] 25 mmol/L Normal 20-29 Comprehen [facility] Internal [facility]; [facility] Work Phone: Comment on above: PATIENT NOT FASTINGP ERFORMED BY: CB [facility] Nixoft[address] Online[address] [place] [id number] Creatinine [Mass/Vol] 0.35 mg/dL Abnormal 0.76-1.27 [facility] prehensive Internal Medicine; [facility] Work Phone: Comment on above: PATIENT NOT FASTINGP ERFORMED BY: SAGRARIO Lablouisa Cuevas[address] Dick Roadblin [place] [id number] GFR/1.73 sq M.predicted among non-blacks MDRD (S/P/Bld) [Vol rate/Area] 131 mL/min/{1.73_m2} Normal Comprehensi Internal Medicine; [facility] Work Phone: Comment on above: PATIENT NOT FASTINGP ERFORMED BY: SAGRARIO [facility] Obucjh5388 Dick RoadDublin [place] [id number] Glucose [Mass/Vol] 77 mg/dL Normal 65-99 [facility] Internal [facility]; [facility] Work Phone: Comment on above: PATIENT NOT FASTINGP ERFORMED BY: SAGRARIO Lablouisa GomezAptdnd4773 Dick RoadNovant Health Presbyterian Medical Centerin [place] [id number] Potassium [Moles/Vol] 4.7 mmol/L Normal 3.5-5.2 [facility] prehensive Internal Medicine; [facility] Work Phone: Comment on above: PATIENT NOT FASTINGP ERFORMED BY: SAGRARIO [facility] [id number] Roadblin [place] [id number] Sodium [Moles/Vol] 130 mmol/L Abnormal 134-144 [facility] Internal [facility]; [facility] Work Phone: Comment on above: PATIENT NOT FASTINGP ERFORMED BY: CB [facility] Leunlk5580 Dick RoadDublin [place] [id number] Urea nitrogen [Mass/Vol] 13 mg/dL Normal 6-24 [facility]; [facility] Work Phone: Comment on above: PATIENT NOT FASTINGP ERFORMED BY: SAGRARIO [facility] [id number] Dick RoadDublin [place] [id number] Urea nitrogen/Creatinine [Mass ratio] 37 mg/mg Abnormal 9-20 [facility]; [facility] Work Phone: Comment on above: PATIENT NOT FASTINGP ERFORMED BY: CB [facility] [id number] [place] [id number] Metabolic Panel, Basic ([id number]) 131 mL/min/1.73 Normal [facility]; [facility] Work Phone: Metabolic Panel, Basic ([phone])Ordered By: Client Hr Manager on 02-15-2022 Calcium [Mass/Vol] 8.9 mg/dL Normal 8.7-10.2 [facility]; [facility] Work Phone: Comment on above: PATIENT NOT FASTINGP ERFORMED BY: SAGRARIO [facility] Hmauvk1347 Dick RoadDuin [place] [id number] Chloride [Moles/Vol] 92 mmol/L Abnormal 96-106 Comp rehensive Internal Medicine; [facility] Work Phone: Comment on above: PATIENT NOT FASTINGP ERFORMED BY: SAGRARIO [facility] Riuanx9587 Dick RoadDuin [place] [id number] CO2 [Moles/Vol] 23 mmol/L Normal 20-29 Comprehen [facility]; [facility] Work Phone: Comment on above: PATIENT NOT FASTINGP ERFORMED BY: SAGRARIO [facility] [id number] Dick RoadDuin [place] [id number] Creatinine [Mass/Vol] 0.43 mg/dL Abnormal 0.76-1.27 Com prehensive Internal Medicine; [facility] Work Phone: Comment on above: PATIENT NOT FASTINGP ERFORMED BY: SAGRARIO [facility] Cshkww[address] [facility] [place] [id number] GFR/1.73 sq M.predicted among non-blacks MDRD (S/P/Bld) [Vol rate/Area] 123 mL/min/{1.73_m2} Normal Comprehensi ve Internal Medicine; [facility] Work Phone: Comment on above: PATIENT NOT FASTINGP ERFORMED BY: SAGRARIO [facility] [id number] [address] [facility]in [place] [id number] Glucose [Mass/Vol] 87 mg/dL Normal 65-99 Compre [facility]; [facility] Work Phone: Comment on above: PATIENT NOT FASTINGP ERFORMED BY: SAGRARIO [facility] Taxpit4991 [facility] [id number] Potassium [Moles/Vol] 5.2 mmol/L Normal 3.5-5.2 [facility] prehensive Internal Medicine; [facility] Work Phone: Comment on above: PATIENT NOT FASTINGP ERFORMED BY: SAGRARIO [facility] [id number] [facility] [id number] Sodium [Moles/Vol] 131 mmol/L Abnormal 134-144 [facility]; [facility] Work Phone: Comment on above: PATIENT NOT FASTINGP ERFORMED BY: SAGRARIO [facility] Htukja9232 [facility] [id number] Urea nitrogen [Mass/Vol] 15 mg/dL Normal 6-24 [facility]; [facility] Work Phone: Comment on above: PATIENT NOT FASTINGP ERFORMED BY: SAGRARIO Lab[facility] [id number] [facility] [id number] Urea nitrogen/Creatinine [Mass ratio] 35 mg/mg Abnormal 9-20 [facility]; [facility] Work Phone: Comment on above: PATIENT NOT FASTINGP ERFORMED BY: SAGRARIO Lab[facility] [id number] [facility] [id number] Metabolic Panel, Basic ([id number]) 123 mL/min/1.73 Normal [facility]; [facility] Work Phone: Absolute lymphocyte counton 02-14-2022 Lymphocytes Auto (Unsp spec) [#/Vol] 0.86 10*3/uL 0.83-4.51 [facility] Basophil percentageon 2021 Basophil percentage 3.4 mg/dL 2.5-4.9 [facility] Basophils/100 WBC (Bld) 0.3 % 0-1 [facility] Bilirubin [Mass/Vol] 0.20 mg/dL 0.20-1.00 [facility] Comment on above: For patients on eltr ombopag therapy, use of Dimension [place] TBIL is not recommended. Chloride [Moles/Vol] 93 mmol/L 98-107 [facility] Eosinophils/100 WBC (Bld) 0.7 % 0-5 [facility] Glucose [Mass/Vol] 82 mg/dL 74-106 [facility] Neutrophils (Bld) [#/Vol] 4.3 10*3/uL 2.0-7.7 [facility] Neutrophils/100 WBC (Bld) 71.4 % 47-70 [facility] Potassium [Moles/Vol] 4.2 mmol/L 3.5-5.1 [facility] Protein [Mass/Vol] 8.1 g/dL 6.4-8.2 [facility] Sodium [Moles/Vol] 129 mmol/L 136-145 [facility] WBC (Bld) [#/Vol] 6.1 10*3/uL 4.4-11.0 [facility] Blood erythrocytes count (nu mber/volume)on 02-14-2022 RBC (Bld) [#/Vol] 3.44 10*6/uL 4.6-6.2 [facility] Blood hemoglobin measurement (mass/volume)on 02-14-2022 Hemoglobin (Bld) [Mass/Vol] 10.6 g/dL 13.0-16.5 [facility] Blood lymphocytes/100 leukoc yteson 02-14-2022 Lymphocytes/100 WBC (Bld) 14.2 % 19-41 [facility] Blood monocytes/100 leukocyt eson 02-14-2022 Monocytes/100 WBC (Bld) 12.7 % 0-10 [facility] Blood platelet mean volumeon 02-14-2022 Platelet mean volume (Bld) [Entitic vol] 8.1 fL 6.2-12.0 [facility] Determination of erythrocyte mean corpuscular volume (MCV)on 02-14-2022 MCV (RBC) [Entitic vol] 91.6 fL 80-94 [facility] Hematocrit Auto (Bld) [Volum e fraction]on 02-14-2022 Hematocrit (Bld) [Volume fraction] 31.5 % 40-54 [facility] Laboratory - Chemistry and C hemistry - challengeon 02-14-2022 ALP [Catalytic activity/Vol] 97 U/L 45-117 [facility] ALT [Catalytic activity/Vol] 26 U/L 16-61 [facility] CO2 [Moles/Vol] 31.0 mmol/L 21.0-32.0 [facility] Globulin (S) [Mass/Vol] 4.7 g/dL 2.2-4.2 [facility] Magnesium [Mass/Vol] 1.9 mg/dL 1.6-2.6 [facility] Urea nitrogen/Creatinine [Mass ratio] 52.9 mg/mg 10-20 [facility] Laboratory - Hematology and Cell countson 02-14-2022 Erythrocyte distribution width (RBC) [Entitic vol] 49.9 fL 35.1-43.9 [facility] Erythrocyte distribution width (RBC) [Ratio] 14.9 % 11.6-14.6 [facility] Immature granulocytes/100 WBC (Bld) 0.700 % 0.0-0.9 [facility] Comment on above: IG% - Immature Granu locytes (promyelocytes, myelocytes and metamyelocytes) > 1% indicates that a LEFT SHIFT is Present. MCH (RBC) [Entitic mass] 30.8 pg 27.0-32.0 [facility] Nucleated RBC/100 WBC (Bld) [Ratio] 0 % 0-5 [facility] MCHC Auto (RBC) [Mass/Vol]on 02-14-2022 MCHC (RBC) [Mass/Vol] 33.7 g/dL 32-36 [facility] No Panel Informationon 02-14 Estimated GFR (MDRD) Amer 302 mL/min >60 [facility] Comment on above: GFR Calc Estimated GFR (MDRD) Non-Af Amer 249 mL/min >60 [facility] Comment on above: Non- GFR Calc Platelets bldon 02-14-2022 Platelets (Bld) [#/Vol] 464 10*3/uL 150-450 [facility] Serum or plasma albumin yesi urement (mass/volume)on 02-14-2022 Albumin [Mass/Vol] 3.4 g/dL 3.2-5.0 [facility] Serum or plasma albumin/glob ulin mass ratioon 02-14-2022 Albumin/Globulin [Mass ratio] 0.7 {ratio} 0.9-2.4 [facility] Serum or plasma calcium yesi urement (mass/volume)on 02-14-2022 Calcium [Mass/Vol] 9.0 mg/dL 8.5-10.1 [facility] Serum or plasma creatinine m easurement (mass/volume)on 02-14-2022 Creatinine [Mass/Vol] 0.38 mg/dL 0.70-1.30 [facility] Comment on above: The validity of the calculated GFR & GFRAA in patients over 70 years has not been determined. Clinical correlation is essential. Serum or plasma urea nitroge n measurement (mass/volume)on 02-14-2022 Urea nitrogen [Mass/Vol] 20 mg/dL 7-18 [facility] Thin prep Papanicolaou smear with manual screeningon 02-14-2022 Thin prep Papanicolaou smear with manual screening 12 U/L 15-37 [facility] Thin prep Papanicolaou smear with manual screening 5 5-15 [facility] Tobacco Screening.on 022 Fall risk assessment a) No falls within the last year [facility] Work Phone: Tobacco use status CPHS b) No M [facility] Work Phone: Absolute lymphocyte counton 01-31-2022 Lymphocytes Auto (Unsp spec) [#/Vol] 0.66 10*3/uL 0.83-4.51 [facility] Work Phone: Basophil percentageon 2021 Basophil percentage 3.9 mg/dL 2.5-4.9 [facility] Work Phone: Basophils/100 WBC (Bld) 0.2 % 0-1 [facility] Work Phone: Chloride [Moles/Vol] 96 mmol/L 98-107 [facility] Work Phone: Eosinophils/100 WBC (Bld) 0.7 % 0-5 [facility] Work Phone: Glucose [Mass/Vol] 78 mg/dL 74-106 [facility] Work Phone: Neutrophils (Bld) [#/Vol] 4.5 10*3/uL 2.0-7.7 [facility] Work Phone: Neutrophils/100 WBC (Bld) 75.6 % 47-70 [facility] Work Phone: Potassium [Moles/Vol] 3.8 mmol/L 3.5-5.1 [facility] Work Phone: Sodium [Moles/Vol] 132 mmol/L 136-145 [facility] Work Phone: WBC (Bld) [#/Vol] 5.9 10*3/uL 4.4-11.0 [facility] Work Phone: Blood erythrocytes count (nu mber/volume)on 01-31-2022 RBC (Bld) [#/Vol] 3.13 10*6/uL 4.6-6.2 [facility]: Blood hemoglobin measurement (mass/volume)on 01-31-2022 Hemoglobin (Bld) [Mass/Vol] 9.7 g/dL 13.0-16.5 [facility] Work Phone: Blood lymphocytes/100 leukoc yteson 01-31-2022 Lymphocytes/100 WBC (Bld) 11.2 % 19-41 [facility] Work Phone: Blood monocytes/100 leukocyt eson 01-31-2022 Monocytes/100 WBC (Bld) 12.1 % 0-10 [facility] Work Phone: Blood platelet mean volumeon 01-31-2022 Platelet mean volume (Bld) [Entitic vol] 8.1 fL 6.2-12.0 [facility] Work Phone: Determination of erythrocyte mean corpuscular volume (MCV)on 01-31-2022 MCV (RBC) [Entitic vol] 93.9 fL 80-94 [facility] Work Phone: Hematocrit Auto (Bld) [Volum e fraction]on 01-31-2022 Hematocrit (Bld) [Volume fraction] 29.4 % 40-54 [facility] Work Phone: Laboratory - Chemistry and C hemistry - challengeon 01-31-2022 CO2 [Moles/Vol] 31.0 mmol/L 21.0-32.0 [facility] Work Phone: Magnesium [Mass/Vol] 1.6 mg/dL 1.6-2.6 [facility] Work Phone: Urea nitrogen/Creatinine [Mass ratio] 43.5 mg/mg 10-20 [facility] Work Phone: Laboratory - Hematology and Cell countson 01-31-2022 Erythrocyte distribution width (RBC) [Entitic vol] 53.1 fL 35.1-43.9 [facility] Work Phone: Erythrocyte distribution width (RBC) [Ratio] 15.3 % 11.6-14.6 [facility] Work Phone: Immature granulocytes/100 WBC (Bld) 0.200 % 0.0-0.9 [facility] Work Phone: Comment on above: IG% - Immature Granu locytes (promyelocytes, myelocytes and metamyelocytes) > 1% indicates that a LEFT SHIFT is Present. MCH (RBC) [Entitic mass] 31.0 pg 27.0-32.0 [facility] Work Phone: Nucleated RBC/100 WBC (Bld) [Ratio] 0 % 0-5 [facility] Work Phone: MCHC Auto (RBC) [Mass/Vol]on 01-31-2022 MCHC (RBC) [Mass/Vol] 33.0 g/dL 32-36 [facility] Work Phone: No Panel Informationon 01-31 Estimated Creatinine Clearance Calc 194.55 ml/min [facility] Work Phone: Estimated GFR (MDRD) Amer 363 mL/min >60 [facility] Work Phone: Comment on above: GFR Calc Estimated GFR (MDRD) Non-Af Amer 300 mL/min >60 [facility] Work Phone: Comment on above: Non- GFR Calc Platelets bldon 01-31-2022 Platelets (Bld) [#/Vol] 303 10*3/uL 150-450 [facility] Work Phone: Serum or plasma calcium yesi urement (mass/volume)on 01-31-2022 Calcium [Mass/Vol] 9.0 mg/dL 8.5-10.1 [facility] Work Phone: Serum or plasma creatinine m easurement (mass/volume)on 01-31-2022 Creatinine [Mass/Vol] 0.32 mg/dL 0.70-1.30 [facility] Work Phone: Comment on above: The validity of the calculated GFR & GFRAA in patients over 70 years has not been determined. Clinical correlation is essential. Serum or plasma urea nitroge n measurement (mass/volume)on 01-31-2022 Urea nitrogen [Mass/Vol] 14 mg/dL 7-18 [facility] Work Phone: Thin prep Papanicolaou smear with manual screeningon 01-31-2022 Thin prep Papanicolaou smear with manual screening 5 5-15 [facility] Work Phone: Absolute lymphocyte counton 01-25-2022 Lymphocytes Auto (Unsp spec) [#/Vol] 0.60 10*3/uL 0.83-4.51 [facility] Work Phone: Basophil percentageon 2021 Basophils/100 WBC (Bld) 0.2 % 0-1 [facility] Work Phone: Chloride [Moles/Vol] 96 mmol/L 98-107 [facility] Work Phone: Eosinophils/100 WBC (Bld) 0.2 % 0-5 [facility] Work Phone: Glucose [Mass/Vol] 109 mg/dL 74-106 [facility] Work Phone: Comment on above: Fasting Glucose resu lt from 100 to 125 mg/dL suggests IMPAIRED HOMEOSTASIS per A.D.A. criteria. Neutrophils (Bld) [#/Vol] 4.4 10*3/uL 2.0-7.7 [facility] Work Phone: Neutrophils/100 WBC (Bld) 74.7 % 47-70 [facility] Work Phone: Potassium [Moles/Vol] 4.3 mmol/L 3.5-5.1 [facility] Work Phone: Sodium [Moles/Vol] 129 mmol/L 136-145 [facility] Work Phone: WBC (Bld) [#/Vol] 5.8 10*3/uL 4.4-11.0 [facility] Work Phone: Blood erythrocytes count (nu mber/volume)on 01-25-2022 RBC (Bld) [#/Vol] 3.25 10*6/uL 4.6-6.2 [facility] Work Phone: Blood hemoglobin measurement (mass/volume)on 01-25-2022 Hemoglobin (Bld) [Mass/Vol] 10.2 g/dL 13.0-16.5 [facility] Work Phone: Blood lymphocytes/100 leukoc yteson 01-25-2022 Lymphocytes/100 WBC (Bld) 10.3 % 19-41 [facility] Work Phone: Blood monocytes/100 leukocyt eson 01-25-2022 Monocytes/100 WBC (Bld) 13.9 % 0-10 [facility] Work Phone: Blood platelet mean volumeon 01-25-2022 Platelet mean volume (Bld) [Entitic vol] 7.9 fL 6.2-12.0 [facility] Work Phone: Determination of erythrocyte mean corpuscular volume (MCV)on 01-25-2022 MCV (RBC) [Entitic vol] 90.2 fL 80-94 [facility] Work Phone: Hematocrit Auto (Bld) [Volum e fraction]on 01-25-2022 Hematocrit (Bld) [Volume fraction] 29.3 % 40-54 [facility] Work Phone: Laboratory - Chemistry and C hemistry - challengeon 01-25-2022 CO2 [Moles/Vol] 28.0 mmol/L 21.0-32.0 [facility] Work Phone: Urea nitrogen/Creatinine [Mass ratio] 43.4 mg/mg 10-20 [facility] Work Phone: Laboratory - Hematology and Cell countson 01-25-2022 Erythrocyte distribution width (RBC) [Entitic vol] 51.0 fL 35.1-43.9 [facility] Work Phone: Erythrocyte distribution width (RBC) [Ratio] 15.5 % 11.6-14.6 [facility] Work Phone: Immature granulocytes/100 WBC (Bld) 0.700 % 0.0-0.9 [facility] Work Phone: Comment on above: IG% - Immature Granu locytes (promyelocytes, myelocytes and metamyelocytes) > 1% indicates that a LEFT SHIFT is Present. MCH (RBC) [Entitic mass] 31.4 pg 27.0-32.0 [facility] Work Phone: Nucleated RBC/100 WBC (Bld) [Ratio] 0 % 0-5 [facility] Work Phone: MCHC Auto (RBC) [Mass/Vol]on 01-25-2022 MCHC (RBC) [Mass/Vol] 34.8 g/dL 32-36 [facility] Work Phone: No Panel Informationon 01-25 Estimated Creatinine Clearance Calc 172.09 ml/min [facility] Work Phone: Estimated GFR (MDRD) Amer 310 mL/min >60 [facility] Work Phone: Comment on above: GFR Calc Estimated GFR (MDRD) Non-Af Amer 256 mL/min >60 [facility] Work Phone: Comment on above: Non- GFR Calc Platelets bldon 01-25-2022 Platelets (Bld) [#/Vol] 298 10*3/uL 150-450 [facility] Work Phone: Serum or plasma calcium yesi urement (mass/volume)on 01-25-2022 Calcium [Mass/Vol] 8.5 mg/dL 8.5-10.1 [facility] Work Phone: Serum or plasma creatinine m easurement (mass/volume)on 01-25-2022 Creatinine [Mass/Vol] 0.37 mg/dL 0.70-1.30 [facility] Work Phone: Comment on above: The validity of the calculated GFR & GFRAA in patients over 70 years has not been determined. Clinical correlation is essential. Serum or plasma urea nitroge n measurement (mass/volume)on 01-25-2022 Urea nitrogen [Mass/Vol] 16 mg/dL 7-18 [facility] Work Phone: Thin prep Papanicolaou smear with manual screeningon 01-25-2022 Thin prep Papanicolaou smear with manual screening 5 5-15 [facility] Work Phone: Absolute lymphocyte counton 01-23-2022 Lymphocytes Auto (Unsp spec) [#/Vol] 0.28 10*3/uL 0.83-4.51 [facility] Work Phone: Basophil percentageon 2021 Chloride [Moles/Vol] 91 mmol/L 98-107 [facility] Work Phone: Glucose [Mass/Vol] 100 mg/dL 74-106 [facility] Work Phone: Comment on above: Fasting Glucose resu lt from 100 to 125 mg/dL suggests IMPAIRED HOMEOSTASIS per A.D.A. criteria. Potassium [Moles/Vol] 4.0 mmol/L 3.5-5.1 [facility] Work Phone: Sodium [Moles/Vol] 123 mmol/L 136-145 [facility] Work Phone: Basophils/100 WBC (Bld) 0.0 % 0-1 [facility] Work Phone: Eosinophils/100 WBC (Bld) 0.0 % 0-5 [facility] Work Phone: Neutrophils (Bld) [#/Vol] 7.7 10*3/uL 2.0-7.7 [facility] Work Phone: Neutrophils/100 WBC (Bld) 94.5 % 47-70 [facility] Work Phone: WBC (Bld) [#/Vol] 8.2 10*3/uL 4.4-11.0 [facility] Work Phone: Blood erythrocytes count (nu mber/volume)on 01-23-2022 RBC (Bld) [#/Vol] 3.18 10*6/uL 4.6-6.2 [facility] Work Phone: Blood hemoglobin measurement (mass/volume)on 01-23-2022 Hemoglobin (Bld) [Mass/Vol] 9.8 g/dL 13.0-16.5 [facility] Work Phone: Blood lymphocytes/100 leukoc yteson 01-23-2022 Lymphocytes/100 WBC (Bld) 3.4 % 19-41 [facility] Work Phone: Blood manual differential co mment interpretation (narrative result)on 01-23-2022 Manual differential comment Allen (Bld) [Interp] SCANNED [facility] Work Phone: Comment on above: LYMPHOPENIA NOTED Blood monocytes/100 leukocyt eson 01-23-2022 Monocytes/100 WBC (Bld) 1.6 % 0-10 [facility] Work Phone: Blood platelet mean volumeon 01-23-2022 Platelet mean volume (Bld) [Entitic vol] 8.9 fL 6.2-12.0 [facility] Work Phone: Determination of erythrocyte mean corpuscular volume (MCV)on 01-23-2022 MCV (RBC) [Entitic vol] 87.4 fL 80-94 [facility] Work Phone: Hematocrit Auto (Bld) [Volum e fraction]on 01-23-2022 Hematocrit (Bld) [Volume fraction] 27.8 % 40-54 [facility] Work Phone: Laboratory - Chemistry and C hemistry - challengeon 01-23-2022 CO2 [Moles/Vol] 25.0 mmol/L 21.0-32.0 [facility] Work Phone: Urea nitrogen/Creatinine [Mass ratio] 23.1 mg/mg 10-20 [facility] Work Phone: Sodium (U) [Moles/Vol] 42 mmol/L Not Establ. [facility] Work Phone: Laboratory - Hematology and Cell countson 01-23-2022 Erythrocyte distribution width (RBC) [Entitic vol] 46.2 fL 35.1-43.9 [facility] Work Phone: Erythrocyte distribution width (RBC) [Ratio] 14.3 % 11.6-14.6 [facility] Work Phone: Immature granulocytes/100 WBC (Bld) 0.500 % 0.0-0.9 [facility] Work Phone: Comment on above: IG% - Immature Granu locytes (promyelocytes, myelocytes and metamyelocytes) > 1% indicates that a LEFT SHIFT is Present. MCH (RBC) [Entitic mass] 30.8 pg 27.0-32.0 [facility] Work Phone: Nucleated RBC/100 WBC (Bld) [Ratio] 0 % 0-5 [facility] Work Phone: Laboratory - Microbiology an d Antimicrobial susceptibilityon 01-23-2022 SARS-CoV-2 (COVID-19) RNA PEDRO+probe Ql (Unsp spec) Not detected Not Detect [facility] Work Phone: Comment on above: Normal Reference [...] 01-23-2022 MCHC (RBC) [Mass/Vol] 35.3 g/dL 32-36 [facility] Work Phone: No Panel Informationon 01-23 Estimated Creatinine Clearance Calc 163.56 ml/min [facility] Work Phone: Estimated GFR (MDRD) Amer 291 mL/min >60 [facility] Work Phone: Comment on above: GFR Calc Estimated GFR (MDRD) Non-Af Amer 241 mL/min >60 [facility] Work Phone: Comment on above: Non- GFR Calc Platelets bldon 01-23-2022 Platelets (Bld) [#/Vol] 315 10*3/uL 150-450 [facility] Work Phone: Serum or plasma calcium yesi urement (mass/volume)on 01-23-2022 Calcium [Mass/Vol] 9.0 mg/dL 8.5-10.1 [facility] Work Phone: Serum or plasma creatinine m easurement (mass/volume)on 01-23-2022 Creatinine [Mass/Vol] 0.39 mg/dL 0.70-1.30 [facility] Work Phone: Comment on above: The validity of the calculated GFR & GFRAA in patients over 70 years has not been determined. Clinical correlation is essential. Serum or plasma urea nitroge n measurement (mass/volume)on 01-23-2022 Urea nitrogen [Mass/Vol] 9 mg/dL 7-18 [facility] Work Phone: Thin prep Papanicolaou smear with manual screeningon 01-23-2022 Thin prep Papanicolaou smear with manual screening 7 5-15 [facility] Work Phone: Urine osmolality measurement on 01-23-2022 Osmolality (U) [Osmolality] 229 mOsm/KG >50 [facility] Work Phone: Comment on above: Normal Urine Referen ce Ranges Random: 50 - 1200 mOsm/kg H20 depending on fluid intake Random: >850 mOsm/kg after 12 hour fluid restriction 24 hour: ~300 - 900 mOsm/kg H2O No Panel Informationon 01-22 Thyroid Stimulating Hormone (TSH) 2.09 uIU/mL 0.358-3.74 [facility] Work Phone: Serum or plasma cortisol davey surement (mass/volume)on 01-22-2022 Cortisol [Mass/Vol] 47.00 ug/dL 3.44-22.45 [facility] Work Phone: Comment on above: Adult (AM) 5.27 - 22 .45 ug/dL Adult (PM) 3.44 - 16.76 ug/dLPlease note revised CORTISOL reference range effective 2019. Thin prep Papanicolaou smear with manual screeningon 01-22-2022 Thin prep Papanicolaou smear with manual screening 238 mOsm/KG 275-295 [facility] Work Phone: Absolute lymphocyte counton 01-17-2022 Lymphocytes Auto (Unsp spec) [#/Vol] 0.68 10*3/uL 0.83-4.51 [facility] Work Phone: Basophil percentageon 2021 Basophil percentage 3.5 mg/dL 2.5-4.9 [facility] Work Phone: Basophils/100 WBC (Bld) 0.5 % 0-1 [facility] Work Phone: Chloride [Moles/Vol] 93 mmol/L 98-107 [facility] Work Phone: Eosinophils/100 WBC (Bld) 0.8 % 0-5 [facility] Work Phone: Glucose [Mass/Vol] 83 mg/dL 74-106 [facility] Work Phone: Neutrophils (Bld) [#/Vol] 4.6 10*3/uL 2.0-7.7 [facility] Work Phone: Neutrophils/100 WBC (Bld) 73.7 % 47-70 [facility] Work Phone: Potassium [Moles/Vol] 3.7 mmol/L 3.5-5.1 [facility] Work Phone: Sodium [Moles/Vol] 130 mmol/L 136-145 [facility] Work Phone: WBC (Bld) [#/Vol] 6.3 10*3/uL 4.4-11.0 [facility] Work Phone: Blood erythrocytes count (nu mber/volume)on 01-17-2022 RBC (Bld) [#/Vol] 3.31 10*6/uL 4.6-6.2 [facility] Work Phone: Blood hemoglobin measurement (mass/volume)on 01-17-2022 Hemoglobin (Bld) [Mass/Vol] 10.3 g/dL 13.0-16.5 [facility] Work Phone: Blood lymphocytes/100 leukoc yteson 01-17-2022 Lymphocytes/100 WBC (Bld) 10.8 % 19-41 [facility] Work Phone: Blood monocytes/100 leukocyt eson 01-17-2022 Monocytes/100 WBC (Bld) 13.6 % 0-10 [facility] Work Phone: Blood platelet mean volumeon 01-17-2022 Platelet mean volume (Bld) [Entitic vol] 8.6 fL 6.2-12.0 [facility] Work Phone: Determination of erythrocyte mean corpuscular volume (MCV)on 01-17-2022 MCV (RBC) [Entitic vol] 91.5 fL 80-94 [facility] Work Phone: Hematocrit Auto (Bld) [Volum e fraction]on 01-17-2022 Hematocrit (Bld) [Volume fraction] 30.3 % 40-54 [facility] Work Phone: Laboratory - Chemistry and C hemistry - challengeon 01-17-2022 CO2 [Moles/Vol] 29.0 mmol/L 21.0-32.0 [facility] Work Phone: Magnesium [Mass/Vol] 1.7 mg/dL 1.6-2.6 [facility] Work Phone: Urea nitrogen/Creatinine [Mass ratio] 21.0 mg/mg 10-20 [facility] Work Phone: Laboratory - Hematology and Cell countson 01-17-2022 Erythrocyte distribution width (RBC) [Entitic vol] 49.4 fL 35.1-43.9 [facility] Work Phone: Erythrocyte distribution width (RBC) [Ratio] 14.8 % 11.6-14.6 [facility] Work Phone: Immature granulocytes/100 WBC (Bld) 0.600 % 0.0-0.9 [facility] Work Phone: Comment on above: IG% - Immature Granu locytes (promyelocytes, myelocytes and metamyelocytes) > 1% indicates that a LEFT SHIFT is Present. MCH (RBC) [Entitic mass] 31.1 pg 27.0-32.0 [facility] Work Phone: Nucleated RBC/100 WBC (Bld) [Ratio] 0 % 0-5 [facility] Work Phone: MCHC Auto (RBC) [Mass/Vol]on 01-17-2022 MCHC (RBC) [Mass/Vol] 34.0 g/dL 32-36 [facility] Work Phone: No Panel Informationon 01-17 Estimated Creatinine Clearance Calc 193.58 ml/min [facility] Work Phone: Estimated GFR (MDRD) Amer 348 mL/min >60 [facility] Work Phone: Comment on above: GFR Calc Estimated GFR (MDRD) Non-Af Amer 288 mL/min >60 [facility] Work Phone: Comment on above: Non- GFR Calc Platelets bldon 01-17-2022 Platelets (Bld) [#/Vol] 350 10*3/uL 150-450 [facility] Work Phone: Serum or plasma calcium yesi urement (mass/volume)on 01-17-2022 Calcium [Mass/Vol] 9.1 mg/dL 8.5-10.1 [facility] Work Phone: Serum or plasma creatinine m easurement (mass/volume)on 01-17-2022 Creatinine [Mass/Vol] 0.33 mg/dL 0.70-1.30 [facility] Work Phone: Comment on above: The validity of the calculated GFR & GFRAA in patients over 70 years has not been determined. Clinical correlation is essential. Serum or plasma urea nitroge n measurement (mass/volume)on 01-17-2022 Urea nitrogen [Mass/Vol] 7 mg/dL 7-18 [facility] Work Phone: Thin prep Papanicolaou smear with manual screeningon 01-17-2022 Thin prep Papanicolaou smear with manual screening 8 5-15 [facility] Work Phone: Tobacco Screening.on 022 Fall risk assessment a) No falls within the last year [facility] Work Phone: Tobacco use status CPHS a) Yes M [facility] Work Phone: Tobacco Screening. Yes [facility] Work Phone: Absolute lymphocyte counton 01-10-2022 Lymphocytes Auto (Unsp spec) [#/Vol] 0.73 10*3/uL 0.83-4.51 [facility] Work Phone: Basophil percentageon 2021 Basophil percentage 3.9 mg/dL 2.5-4.9 [facility] Work Phone: Basophils/100 WBC (Bld) 0.2 % 0-1 [facility] Work Phone: Chloride [Moles/Vol] 94 mmol/L 98-107 [facility] Work Phone: Eosinophils/100 WBC (Bld) 0.7 % 0-5 [facility] Work Phone: Glucose [Mass/Vol] 90 mg/dL 74-106 [facility] Work Phone: Neutrophils (Bld) [#/Vol] 4.4 10*3/uL 2.0-7.7 [facility] Work Phone: Neutrophils/100 WBC (Bld) 72.5 % 47-70 [facility] Work Phone: Potassium [Moles/Vol] 3.8 mmol/L 3.5-5.1 [facility] Work Phone: Sodium [Moles/Vol] 131 mmol/L 136-145 [facility] Work Phone: WBC (Bld) [#/Vol] 6.0 10*3/uL 4.4-11.0 [facility] Work Phone: Blood erythrocytes count (nu mber/volume)on 01-10-2022 RBC (Bld) [#/Vol] 3.34 10*6/uL 4.6-6.2 [facility] Work Phone: Blood hemoglobin measurement (mass/volume)on 01-10-2022 Hemoglobin (Bld) [Mass/Vol] 10.4 g/dL 13.0-16.5 [facility] Work Phone: Blood lymphocytes/100 leukoc yteson 01-10-2022 Lymphocytes/100 WBC (Bld) 12.2 % 19-41 [facility] Work Phone: Blood monocytes/100 leukocyt eson 01-10-2022 Monocytes/100 WBC (Bld) 13.4 % 0-10 [facility] Work Phone: Blood platelet mean volumeon 01-10-2022 Platelet mean volume (Bld) [Entitic vol] 8.0 fL 6.2-12.0 [facility] Work Phone: Determination of erythrocyte mean corpuscular volume (MCV)on 01-10-2022 MCV (RBC) [Entitic vol] 92.2 fL 80-94 [facility] Work Phone: Hematocrit Auto (Bld) [Volum e fraction]on 01-10-2022 Hematocrit (Bld) [Volume fraction] 30.8 % 40-54 [facility] Work Phone: Laboratory - Chemistry and C hemistry - challengeon 01-10-2022 CO2 [Moles/Vol] 29.0 mmol/L 21.0-32.0 [facility] Work Phone: Magnesium [Mass/Vol] 1.9 mg/dL 1.6-2.6 [facility] Work Phone: Urea nitrogen/Creatinine [Mass ratio] 25.3 mg/mg 10 [facility] Work Phone: Laboratory - Hematology and Cell countson 01-10-2022 Erythrocyte distribution width (RBC) [Entitic vol] 48.8 fL 35.1-43.9 [facility] Work Phone: Erythrocyte distribution width (RBC) [Ratio] 14.6 % 11.6-14.6 [facility] Work Phone: Immature granulocytes/100 WBC (Bld) 1.000 % 0.0-0.9 [facility] Work Phone: Comment on above: IG% - Immature Granu locytes (promyelocytes, myelocytes and metamyelocytes) > 1% indicates that a LEFT SHIFT is Present. MCH (RBC) [Entitic mass] 31.1 pg 27.0-32.0 [facility] Work Phone: Nucleated RBC/100 WBC (Bld) [Ratio] 0 % 0-5 [facility] Work Phone: MCHC Auto (RBC) [Mass/Vol]on 01-10-2022 MCHC (RBC) [Mass/Vol] 33.8 g/dL 32-36 [facility] Work Phone: No Panel Informationon 01-10 Estimated Creatinine Clearance Calc 162.02 ml/min [facility] Work Phone: Estimated GFR (MDRD) Amer 286 mL/min >60 [facility] Work Phone: Comment on above: GFR Calc Estimated GFR (MDRD) Non-Af Amer 236 mL/min >60 [facility] Work Phone: Comment on above: Non- GFR Calc Platelets bldon 01-10-2022 Platelets (Bld) [#/Vol] 377 10*3/uL 150-450 [facility] Work Phone: Serum or plasma calcium yesi urement (mass/volume)on 01-10-2022 Calcium [Mass/Vol] 8.5 mg/dL 8.5-10.1 [facility] Work Phone: Serum or plasma creatinine m easurement (mass/volume)on 01-10-2022 Creatinine [Mass/Vol] 0.40 mg/dL 0.70-1.30 [facility] Work Phone: Comment on above: The validity of the calculated GFR & GFRAA in patients over 70 years has not been determined. Clinical correlation is essential. Serum or plasma urea nitroge n measurement (mass/volume)on 01-10-2022 Urea nitrogen [Mass/Vol] 10 mg/dL 7-18 [facility] Work Phone: Thin prep Papanicolaou smear with manual screeningon 01-10-2022 Thin prep Papanicolaou smear with manual screening 8 5-15 [facility] Work Phone: Tobacco Screening.on 022 Fall risk assessment a) No falls within the last year [facility] Work Phone: Tobacco use status CPHS b) No M [facility] Work Phone: Absolute lymphocyte counton 12-18-2021 Lymphocytes Auto (Unsp spec) [#/Vol] 1.35 10*3/uL 0.83-4.51 [facility] Work Phone: Basophil percentageon 2021 Basophils/100 WBC (Bld) 0.3 % 0-1 [facility] Work Phone: Bilirubin [Mass/Vol] 0.30 mg/dL 0.20-1.00 [facility] Work Phone: Comment on above: For patients on eltr ombopag therapy, use of Dimension [place] TBIL is not recommended. Chloride [Moles/Vol] 94 mmol/L 98-107 [facility] Work Phone: Eosinophils/100 WBC (Bld) 0.6 % 0-5 [facility] Work Phone: Glucose [Mass/Vol] 106 mg/dL 74-106 [facility] Work Phone: Comment on above: Fasting Glucose resu lt from 100 to 125 mg/dL suggests IMPAIRED HOMEOSTASIS per A.D.A. criteria. Neutrophils (Bld) [#/Vol] 6.3 10*3/uL 2.0-7.7 [facility] Work Phone: Neutrophils/100 WBC (Bld) 69.8 % 47-70 [facility] Work Phone: Potassium [Moles/Vol] 3.8 mmol/L 3.5-5.1 [facility] Work Phone: Protein [Mass/Vol] 7.2 g/dL 6.4-8.2 [facility] Work Phone: Sodium [Moles/Vol] 129 mmol/L 136-145 [facility] Work Phone: WBC (Bld) [#/Vol] 9.0 10*3/uL 4.4-11.0 [facility] Work Phone: Blood erythrocytes count (nu mber/volume)on 12-18-2021 RBC (Bld) [#/Vol] 3.40 10*6/uL 4.6-6.2 [facility] Work Phone: Blood hemoglobin measurement (mass/volume)on 12-18-2021 Hemoglobin (Bld) [Mass/Vol] 11.0 g/dL 13.0-16.5 [facility] Work Phone: Blood lymphocytes/100 leukoc yteson 12-18-2021 Lymphocytes/100 WBC (Bld) 15.0 % 19-41 [facility] Work Phone: Blood monocytes/100 leukocyt eson 12-18-2021 Monocytes/100 WBC (Bld) 13.7 % 0-10 [facility] Work Phone: Blood platelet mean volumeon 12-18-2021 Platelet mean volume (Bld) [Entitic vol] 8.5 fL 6.2-12.0 [facility] Work Phone: Determination of erythrocyte mean corpuscular volume (MCV)on 12-18-2021 MCV (RBC) [Entitic vol] 91.8 fL 80-94 [facility] Work Phone: Hematocrit Auto (Bld) [Volum e fraction]on 12-18-2021 Hematocrit (Bld) [Volume fraction] 31.2 % 40-54 [facility] Work Phone: Iron measurement (mass/mass) on 12-18-2021 Iron (Unsp spec) [Mass/Mass] 34 ug/dL 65-175 [facility] Laboratory - Chemistry and C hemistry - challengeon 12-18-2021 ALP [Catalytic activity/Vol] 92 U/L 45-117 [facility] Work Phone: ALT [Catalytic activity/Vol] 24 U/L 16-61 [facility] Work Phone: CO2 [Moles/Vol] 30.0 mmol/L 21.0-32.0 [facility] Work Phone: Globulin (S) [Mass/Vol] 4.0 g/dL 2.2-4.2 [facility] Work Phone: Magnesium [Mass/Vol] 2.0 mg/dL 1.6-2.6 [facility] Work Phone: Urea nitrogen/Creatinine [Mass ratio] 18.5 mg/mg 10-20 [facility] Work Phone: Laboratory - Hematology and Cell countson 12-18-2021 Erythrocyte distribution width (RBC) [Entitic vol] 46.4 fL 35.1-43.9 [facility] Work Phone: Erythrocyte distribution width (RBC) [Ratio] 13.8 % 11.6-14.6 [facility] Work Phone: Immature granulocytes/100 WBC (Bld) 0.600 % 0.0-0.9 [facility] Work Phone: Comment on above: IG% - Immature Granu locytes (promyelocytes, myelocytes and metamyelocytes) > 1% indicates that a LEFT SHIFT is Present. MCH (RBC) [Entitic mass] 32.4 pg 27.0-32.0 [facility] Work Phone: Nucleated RBC/100 WBC (Bld) [Ratio] 0 % 0-5 [facility] Work Phone: MCHC Auto (RBC) [Mass/Vol]on 12-18-2021 MCHC (RBC) [Mass/Vol] 35.3 g/dL 32-36 [facility] Work Phone: No Panel Informationon 12-18 Estimated Creatinine Clearance Calc 133.30 ml/min [facility] Work Phone: Estimated GFR (MDRD) Amer 225 mL/min >60 [facility] Work Phone: Comment on above: GFR Calc Estimated GFR (MDRD) Non-Af Amer 186 mL/min >60 [facility] Work Phone: Comment on above: Non- GFR Calc Thyroid Stimulating Hormone (TSH) 5.67 uIU/mL 0.358-3.74 [facility] Total Iron Binding Capacity 286 ug/dL 250-450 [facility] Platelets bldon 12-18-2021 Platelets (Bld) [#/Vol] 413 10*3/uL 150-450 [facility] Work Phone: Serum or plasma albumin yesi urement (mass/volume)on 12-18-2021 Albumin [Mass/Vol] 3.2 g/dL 3.2-5.0 [facility] Work Phone: Serum or plasma albumin/glob ulin mass ratioon 12-18-2021 Albumin/Globulin [Mass ratio] 0.8 {ratio} 0.9-2.4 [facility] Work Phone: Serum or plasma calcium yesi urement (mass/volume)on 12-18-2021 Calcium [Mass/Vol] 8.7 mg/dL 8.5-10.1 [facility] Work Phone: Serum or plasma creatinine m easurement (mass/volume)on 12-18-2021 Creatinine [Mass/Vol] 0.49 mg/dL 0.70-1.30 [facility] Work Phone: Comment on above: The validity of the calculated GFR & GFRAA in patients over 70 years has not been determined. Clinical correlation is essential. Serum or plasma ferritin davey surement (mass/volume)on 12-18-2021 Ferritin [Mass/Vol] 284 ng/mL 26-388 [facility] Serum or plasma iron saturat ion measurement (mass fraction)on 12-18-2021 Iron saturation [Mass fraction] 11.9 % 15.0-55.0 [facility] Serum or plasma urea nitroge n measurement (mass/volume)on 12-18-2021 Urea nitrogen [Mass/Vol] 9 mg/dL 7-18 [facility] Work Phone: Thin prep Papanicolaou smear with manual screeningon 12-18-2021 Thin prep Papanicolaou smear with manual screening 12 U/L 15-37 [facility] Work Phone: Thin prep Papanicolaou smear with manual screening 5 5-15 [facility] Work Phone: Tobacco Screening.on 022 Fall risk assessment a) No falls within the last year [facility] Work Phone: Tobacco use status [facility] b) No [facility] Work Phone: Absolute lymphocyte counton 12-15-2021 Lymphocytes Auto (Unsp spec) [#/Vol] 0.82 10*3/uL 0.83-4.51 [facility] Work Phone: Basophil percentageon 2021 Basophils/100 WBC (Bld) 0.4 % 0-1 [facility] Work Phone: Eosinophils/100 WBC (Bld) 0.4 % 0-5 [facility] Work Phone: Neutrophils (Bld) [#/Vol] 5.6 10*3/uL 2.0-7.7 [facility] Work Phone: Neutrophils/100 WBC (Bld) 75.7 % 47-70 [facility] Work Phone: WBC (Bld) [#/Vol] 7.4 10*3/uL 4.4-11.0 [facility] Work Phone: Blood erythrocytes count (nu mber/volume)on 12-15-2021 RBC (Bld) [#/Vol] 3.93 10*6/uL 4.6-6.2 [facility] Work Phone: Blood hemoglobin measurement (mass/volume)on 12-15-2021 Hemoglobin (Bld) [Mass/Vol] 12.5 g/dL 13.0-16.5 [facility] Work Phone: Blood lymphocytes/100 leukoc yteson 12-15-2021 Lymphocytes/100 WBC (Bld) 11.1 % 19-41 [facility] Work Phone: Blood monocytes/100 leukocyt eson 12-15-2021 Monocytes/100 WBC (Bld) 11.9 % 0-10 [facility] Work Phone: Blood platelet mean volumeon 12-15-2021 Platelet mean volume (Bld) [Entitic vol] 8.6 fL 6.2-12.0 [facility] Work Phone: Determination of erythrocyte mean corpuscular volume (MCV)on 12-15-2021 MCV (RBC) [Entitic vol] 90.8 fL 80-94 [facility] Work Phone: Hematocrit Auto (Bld) [Volum e fraction]on 12-15-2021 Hematocrit (Bld) [Volume fraction] 35.7 % 40-54 [facility] Work Phone: Laboratory - Hematology and Cell countson 12-15-2021 Erythrocyte distribution width (RBC) [Entitic vol] 45.6 fL 35.1-43.9 [facility] Work Phone: Erythrocyte distribution width (RBC) [Ratio] 13.4 % 11.6-14.6 [facility] Work Phone: Immature granulocytes/100 WBC (Bld) 0.500 % 0.0-0.9 [facility] Work Phone: Comment on above: IG% - Immature Granu locytes (promyelocytes, myelocytes and metamyelocytes) > 1% indicates that a LEFT SHIFT is Present. MCH (RBC) [Entitic mass] 31.8 pg 27.0-32.0 [facility] Work Phone: Nucleated RBC/100 WBC (Bld) [Ratio] 0 % 0-5 [facility] Work Phone: MCHC Auto (RBC) [Mass/Vol]on 12-15-2021 MCHC (RBC) [Mass/Vol] 35.0 g/dL 32-36 [facility] Phone: Platelets bldon 12-15-2021 Platelets (Bld) [#/Vol] 450 10*3/uL 150-450 [facility] Work Phone: Falls Risk Screeningon 12-04 Fall risk assessment a) No falls within the last year [facility] Work Phone: Tobacco use status [facility] b) No [facility] Work Phone: Tobacco Screening.on 022 Fall risk assessment a) No falls within the last year [facility] Work Phone: Tobacco use status [facility] b) No [facility] Work Phone: Absolute lymphocyte counton 11-20-2021 Lymphocytes Auto (Unsp spec) [#/Vol] 0.53 10*3/uL 0.83-4.51 [facility] Work Phone: Basophil percentageon 2021 Basophils/100 WBC (Bld) 0.2 % 0-1 [facility] Work Phone: Chloride [Moles/Vol] 95 mmol/L 98-107 [facility] Work Phone: Eosinophils/100 WBC (Bld) 0.8 % 0-5 [facility] Work Phone: Glucose [Mass/Vol] 151 mg/dL 74-106 [facility] Work Phone: Comment on above: Fasting Glucose resu lt greater than or equal to 126 mg/dL suggests DIABETES MELLITUS per A.D.A. criteria. Neutrophils (Bld) [#/Vol] 6.8 10*3/uL 2.0-7.7 [facility] Work Phone: Neutrophils/100 WBC (Bld) 81.2 % 47-70 [facility] Work Phone: Potassium [Moles/Vol] 4.3 mmol/L 3.5-5.1 [facility] Work Phone: Sodium [Moles/Vol] 130 mmol/L 136-145 [facility] Work Phone: WBC (Bld) [#/Vol] 8.4 10*3/uL 4.4-11.0 [facility] Work Phone: Blood erythrocytes count (nu mber/volume)on 11-20-2021 RBC (Bld) [#/Vol] 3.07 10*6/uL 4.6-6.2 [facility]: Blood hemoglobin measurement (mass/volume)on 11-20-2021 Hemoglobin (Bld) [Mass/Vol] 10.0 g/dL 13.0-16.5 [facility] Work Phone: Blood lymphocytes/100 leukoc yteson 11-20-2021 Lymphocytes/100 WBC (Bld) 6.3 % 19-41 [facility] Work Phone: Blood monocytes/100 leukocyt eson 11-20-2021 Monocytes/100 WBC (Bld) 10.4 % 0-10 [facility] Work Phone: Blood platelet mean volumeon 11-20-2021 Platelet mean volume (Bld) [Entitic vol] 9.3 fL 6.2-12.0 [facility] Work Phone: Determination of erythrocyte mean corpuscular volume (MCV)on 11-20-2021 MCV (RBC) [Entitic vol] 93.5 fL 80-94 [facility] Work Phone: Hematocrit Auto (Bld) [Volum e fraction]on 11-20-2021 Hematocrit (Bld) [Volume fraction] 28.7 % 40-54 [facility] Work Phone: Laboratory - Chemistry and C hemistry - challengeon 11-20-2021 CO2 [Moles/Vol] 28.0 mmol/L 21.0-32.0 [facility] Work Phone: Cobalamin (Vitamin B12) [Mass/Vol] 486 pg/mL 211-911 [facility] Work Phone: Urea nitrogen/Creatinine [Mass ratio] 33.2 mg/mg 10-20 [facility] Work Phone: Laboratory - Hematology and Cell countson 11-20-2021 Erythrocyte distribution width (RBC) [Entitic vol] 48.7 fL 35.1-43.9 [facility] Work Phone: Erythrocyte distribution width (RBC) [Ratio] 14.2 % 11.6-14.6 [facility] Work Phone: Immature granulocytes/100 WBC (Bld) 1.100 % 0.0-0.9 [facility] Work Phone: Comment on above: IG% - Immature Granu locytes (promyelocytes, myelocytes and metamyelocytes) > 1% indicates that a LEFT SHIFT is Present. MCH (RBC) [Entitic mass] 32.6 pg 27.0-32.0 [facility] Work Phone: Nucleated RBC/100 WBC (Bld) [Ratio] 0 % 0-5 [facility] Work Phone: MCHC Auto (RBC) [Mass/Vol]on 11-20-2021 MCHC (RBC) [Mass/Vol] 34.8 g/dL 32-36 [facility] Work Phone: No Panel Informationon 11-20 Estimated GFR (MDRD) Amer 290 mL/min >60 [facility] Work Phone: Comment on above: GFR Calc Estimated GFR (MDRD) Non-Af Amer 240 mL/min >60 [facility] Work Phone: Comment on above: Non- GFR Calc Thyroid Stimulating Hormone (TSH) 32.90 uIU/mL 0.358-3.74 [facility] Work Phone: Platelets bldon 11-20-2021 Platelets (Bld) [#/Vol] 614 10*3/uL 150-450 [facility] Work Phone: Serum or plasma calcium yesi urement (mass/volume)on 11-20-2021 Calcium [Mass/Vol] 8.2 mg/dL 8.5-10.1 [facility] Work Phone: Serum or plasma creatinine m easurement (mass/volume)on 11-20-2021 Creatinine [Mass/Vol] 0.39 mg/dL 0.70-1.30 [facility] Work Phone: Comment on above: The validity of the calculated GFR & GFRAA in patients over 70 years has not been determined. Clinical correlation is essential. Serum or plasma transthyreti n measurement (mass/volume)on 11-20-2021 Prealbumin [Mass/Vol] 20.9 mg/dL 20.0-40.0 [facility] Work Phone: Serum or plasma urea nitroge n measurement (mass/volume)on 11-20-2021 Urea nitrogen [Mass/Vol] 13 mg/dL 7-18 [facility] Work Phone: Thin prep Papanicolaou smear with manual screeningon 11-20-2021 Thin prep Papanicolaou smear with manual screening 7 5-15 [facility] Work Phone: Coronavirus 2019 RNA by PCR, Screening Asymptomticon 11-17-2021 Coronavirus 2019 RNA by PCR, Screening Asymptomtic Not detected Normal See Below [facility] [facility] Work Phone: Comment on above: SOURCE: Nasal, Nasop haryngealReference Range: Not Detected.This test has received FDA Emergency Use Authorization (EUA) and has been verified by [facility] ([facility]). This test is only authorized for the duration of time that circumstances exist to justify the authorization of the emergency use of in vitro diagnostic tests for the detection of SARS-CoV-2 virus and/or diagnosis of COVID-19 infection under section 564(b)(1) of the Act, 21 U.S.C. 360bbb-3(b)(1), unless the authorization is terminated or revoked sooner. [facility] is certified under CLIA-88 as qualified to perform high complexity testing. Testing is performed in the [facility] located at [address] [place] [address].SARS-CoV-2/Flu/RSV Multiplex Test: Fact sheet for providers: https://www.fda.gov/media/476048/downloadFact sheet for patients: https://www.fda.gov/media/792280/download Renal Function Panelon 11-17 Albumin BCP dye [Mass/Vol] 3.1 g/dL below low threshold 3.4 - 5.0 [facility] Work Phone: Anion gap [Moles/Vol] 12 mmol/L 10 - 20 [facility] Work Phone: Calcium [Mass/Vol] 8.7 mg/dL 8.6 - 10.6 [facility] Work Phone: Chloride [Moles/Vol] 96 mmol/L below low threshold 98 - 107 [facility] Work Phone: CO2 [Moles/Vol] 29 mmol/L 21 - 32 [facility] Work Phone: Creatinine [Mass/Vol] 0.34 mg/dL below low threshold See Below [facility] Work Phone: Comment on above: Reference Range: 0.5 0 - 1.30 Glucose [Mass/Vol] 78 mg/dL 74 - 99 [facility] Work Phone: Phosphate [Mass/Vol] 3.8 mg/dL 2.5 - 4.9 [facility] Work Phone: Comment on above: The performance adryan acteristics of phosphorus testing in heparinized plasma have been validated by the individual laboratory site where testing is performed. Testing on heparinized plasma is not approved by the FDA; however, such approval is not necessary. Potassium [Moles/Vol] 4.8 mmol/L 3.5 - 5.3 [facility] Work Phone: Sodium [Moles/Vol] 132 mmol/L below low threshold 136 - 145 [facility] Work Phone: Urea nitrogen [Mass/Vol] 11 mg/dL 6 - 23 [facility] Work Phone: Renal Function Panel >90 >90 [facility] Work Phone: Comment on above: CALCULATIONS OF JORGE MATED GFR ARE PERFORMED USING THE 2020 CKD-EPI STUDY REFIT EQUATION WITHOUT THE RACE VARIABLE FOR THE IDMS-TRACEABLE CREATININE METHODS.https://jasn.asnjournals.org/content/early/ ASN.5602097288 Vitamin D 25-Hydroxyon 11-17 25-hydroxyvitamin D3 [Mass/Vol] 23 ng/mL Abnormal [facility] Work Phone: Comment on above: .DEFICIENCY: < [...] [Mass/Vol] 32.5 g/dL See Below [facility] [facility] Work Phone: Comment on above: Reference Range: 32. 0 - 36.0 MCV (RBC) [Entitic vol] 99 fL 80 - 100 [facility] Work Phone: Platelets (Bld) [#/Vol] 560 10*3/uL above hi gh threshold 150 - 450 [facility] Work Phone: RBC (Bld) [#/Vol] 3.27 {x10E12/L} below low threshold See Below [facility] [facility] Work Phone: Comment on above: Reference Range: 4.5 0 - 5.90 WBC (Bld) [#/Vol] 6.6 10*3/uL 4.4 - 11.3 [facility] Work Phone: Magnesium, Serumon 2 Magnesium [Mass/Vol] 1.97 mg/dL See Below [facility] Work Phone: Comment on above: Reference Range: 1.6 0 - 2.40 No Panel Informationon 11-16 0.0 {/100_WBC} 0.0-0.0 [facility] [facility] Work Phone: Renal Function Panelon 11-16 Albumin BCP dye [Mass/Vol] 2.9 g/dL below low threshold 3.4 - 5.0 [facility] [facility] Work Phone: Anion gap [Moles/Vol] 13 mmol/L 10 - 20 [facility] [facility] Work Phone: Calcium [Mass/Vol] 8.1 mg/dL below low threshold 8.6 - 10.6 [facility] Work Phone: Chloride [Moles/Vol] 97 mmol/L below low threshold 98 - 107 [facility] Work Phone: CO2 [Moles/Vol] 26 mmol/L 21 - 32 [facility] Work Phone: Creatinine [Mass/Vol] 0.32 mg/dL below low threshold See Below [facility] Work Phone: Comment on above: Reference Range: 0.5 0 - 1.30 Glucose [Mass/Vol] 96 mg/dL 74 - 99 [facility] Work Phone: Phosphate [Mass/Vol] 3.8 mg/dL 2.5 - 4.9 [facility] [facility] Work Phone: Comment on above: The performance adryan acteristics of phosphorus testing in heparinized plasma have been validated by the individual laboratory site where testing is performed. Testing on heparinized plasma is not approved by the FDA; however, such approval is not necessary. Potassium [Moles/Vol] 4.9 mmol/L 3.5 - 5.3 [facility] Work Phone: Sodium [Moles/Vol] 131 mmol/L below low threshold 136 - 145 [facility] Work Phone: Urea nitrogen [Mass/Vol] 12 mg/dL 6 - 23 [facility] Work Phone: Renal Function Panel >90 >90 [facility] Work Phone: Comment on above: CALCULATIONS OF JORGE MATED GFR ARE PERFORMED USING THE 2020 CKD-EPI STUDY REFIT EQUATION WITHOUT THE RACE VARIABLE FOR THE IDMS-TRACEABLE CREATININE METHODS.https://jasn.asnjournals.org/content// ASN.3735770858 Renal Function Panelon 11-15 Albumin BCP dye [Mass/Vol] 3.2 g/dL below low threshold 3.4 - 5.0 [facility] Work Phone: Anion gap [Moles/Vol] 14 mmol/L 10 - 20 [facility] Work Phone: Calcium [Mass/Vol] 8.3 mg/dL below low threshold 8.6 - 10.6 [facility] Work Phone: Chloride [Moles/Vol] 99 mmol/L 98 - 107 [facility] Work Phone: CO2 [Moles/Vol] 23 mmol/L 21 - 32 [facility] Work Phone: Creatinine [Mass/Vol] 0.28 mg/dL below low threshold See Below [facility] Work Phone: Comment on above: Reference Range: 0.5 0 - 1.30 Glucose [Mass/Vol] 102 mg/dL above high threshold 74 - 99 [facility] Work Phone: Phosphate [Mass/Vol] 3.8 mg/dL 2.5 - 4.9 [facility] [facility] Work Phone: Comment on above: The performance [...] below low threshold 136 - 145 [facility] [facility] Work Phone: Urea nitrogen [Mass/Vol] 14 mg/dL 6 - 23 [facility] [facility] Work Phone: Renal Function Panel >90 >90 [facility] [facility] Work Phone: Comment on above: CALCULATIONS OF JORGE MATED GFR ARE PERFORMED USING THE 2020 CKD-EPI STUDY REFIT EQUATION WITHOUT THE RACE VARIABLE FOR THE IDMS-TRACEABLE CREATININE METHODS.https://jasn.asnjournals.org/content/early/ ASN.5447517848 Laboratory - Chemistry and C hemistry - challengeon 11-14-2021 Creatinine (U) [Mass/Vol] 48.6 mg/dL See Below [facility] Work Phone: Comment on above: Reference Range: 20. 0 - 370.0 Osmolality (U) [Osmolality] 474 mosm/kg 200 - 1200 [facility] Work Phone: Potassium (U) [Moles/Vol] 21 mmol/L See Below [facility] Work Phone: Comment on above: Reference Range: Not Established Potassium/Creatinine (U) [Molar ratio] 43 {mmol/g_Creat} See Below [facility] Work Phone: Comment on above: Reference Range: Not Established Sodium (U) [Moles/Vol] 79 mmol/L See Below [facility] [facility] Work Phone: Comment on above: Reference Range: Not Established Sodium/Creatinine (U) [Ratio] 163 {mmol/g_Creat} See Below [facility]tolaryngo l [facility] Work Phone: Comment on above: Reference Range: Not Established Urea nitrogen (U) [Mass/Vol] 627 mg/dL See Below [facility] Work Phone: Comment on above: Reference Range: Not Established Urea/Creatinine (U) [Molar ratio] 12.9 {g/g_Creat} See Below [facility] Work Phone: Comment on above: Reference Range: Not Established Laboratory - Hematology and Cell countson 11-14-2021 Erythrocyte distribution width (RBC) [Ratio] 14.7 % above high threshold See Below [employer] Work Phone: Comment on above: Reference Range: 11. 5 - 14.5 Hematocrit (Bld) [Volume fraction] 34.2 % below low threshold See Below [facility] Work Phone: Comment on above: Reference Range: 41. 0 - 52.0 Hemoglobin (Bld) [Mass/Vol] 11.3 g/dL below low threshold See Below [facility] Work Phone: Comment on above: Reference Range: 13. 5 - 17.5 MCHC (RBC) [Mass/Vol] 33.0 g/dL See Below [facility]- [facility]olaryngol [facility] Work Phone: Comment on above: Reference Range: 32. 0 - 36.0 MCV (RBC) [Entitic vol] 97 fL 80 - 100 [facility] Work Phone: Platelets (Bld) [#/Vol] 421 10*3/uL 150 - 450 [facility] Work Phone: RBC (Bld) [#/Vol] 3.53 {x10E12/L} below low threshold See Below [facility] Work Phone: Comment on above: Reference Range: 4.5 0 - 5.90 WBC (Bld) [#/Vol] 8.0 10*3/uL 4.4 - 11.3 [facility] Work Phone: Magnesium, Serumon 2 Magnesium [Mass/Vol] 1.93 mg/dL See Below [facility] [facility] Work Phone: Comment on above: Reference Range: 1.6 0 - 2.40 No Panel Informationon 11-14 128 {mmol/g_Creat} 23 - 275 [facility] Work Phone: 62 mmol/L See Below [facility] Work Phone: Comment on above: Reference Range: Not Established 0.0 {/100_WBC} 0.0-0.0 [facility] Work Phone: Renal Function Panelon 11-14 Albumin BCP dye [Mass/Vol] 2.7 g/dL below low threshold 3.4 - 5.0 [facility] Work Phone: Anion gap [Moles/Vol] 13 mmol/L 10 - 20 [facility] Work Phone: Calcium [Mass/Vol] 7.7 mg/dL below low threshold 8.6 - 10.6 [facility] Work Phone: Chloride [Moles/Vol] 98 mmol/L 98 - 107 [facility] Work Phone: CO2 [Moles/Vol] 23 mmol/L 21 - 32 [facility] Work Phone: Creatinine [Mass/Vol] 0.33 mg/dL below low threshold See Below [facility] Work Phone: Comment on above: Reference Range: 0.5 0 - 1.30 Glucose [Mass/Vol] 109 mg/dL above high threshold 74 - 99 [facility] Work Phone: Phosphate [Mass/Vol] 3.4 mg/dL 2.5 - 4.9 [facility] Work Phone: Comment on above: The performance adryan acteristics of phosphorus testing in heparinized plasma have been validated by the individual laboratory site where testing is performed. Testing on heparinized plasma is not approved by the FDA; however, such approval is not necessary. Potassium [Moles/Vol] 4.2 mmol/L 3.5 - 5.3 [facility] Work Phone: Sodium [Moles/Vol] 130 mmol/L below low threshold 136 - 145 MG-Otolaryngol [facility] Work Phone: Urea nitrogen [Mass/Vol] 15 mg/dL 6 - 23 [facility] Work Phone: Renal Function Panel >90 >90 MG-O tolaryngol [facility] Work Phone: Comment on above: CALCULATIONS OF JORGE MATED GFR ARE PERFORMED USING THE 2020 CKD-EPI STUDY REFIT EQUATION WITHOUT THE RACE VARIABLE FOR THE IDMS-TRACEABLE CREATININE METHODS.https://jasn.asnjournals.org/content// ASN.[id number] Laboratory - Chemistry and C hemistry - challengeon 11-13-2021 Glucose [Mass/Vol] 83 mg/dL 74 - 99 MG-Aniket laryngol [facility] Work Phone: Laboratory - Hematology and Cell countson 11-13-2021 Erythrocyte distribution width (RBC) [Ratio] 14.5 % See Below MG-Otolaryngol [facility] Work Phone: [...] [Mass/Vol] 33.9 g/dL See Below MG- Otol[facility]ol [facility] Work Phone: Comment on above: Reference Range: 32. 0 - 36.0 MCV (RBC) [Entitic vol] 95 fL 80 - 100 M G-Otolaryngol [employer] [employer] Work Phone: Platelets (Bld) [#/Vol] 381 10*3/uL 150 - 450 MG-Otolaryngol [employer] [employer] Work Phone: RBC (Bld) [#/Vol] 3.46 {x10E12/L} below low threshold See Below MG-Otolaryngol [facility] Work Phone: Comment on above: Reference Range: 4.5 0 - 5.90 WBC (Bld) [#/Vol] 9.3 10*3/uL 4.4 - 11.3 MG-[place] laryngol [employer] [employer] Work Phone: Magnesium, Serumon Magnesium [Mass/Vol] 1.96 mg/dL See Below MG-O tolaryngol [facility] Work Phone: Comment on above: Reference Range: 1.6 0 - 2.40 No Panel Informationon 11-13 0.0 {/100_WBC} 0.0-0.0 MG-Otolary ngol [facility] Work Phone: Radiologyon 11-13-2021 XR Chest Single view Normal MG-O tolaryngol [facility] Work Phone: Renal Function Panelon 11-13 Albumin BCP dye [Mass/Vol] 2.8 g/dL below low threshold 3.4 - 5.0 [facility] Work Phone: Anion gap [Moles/Vol] 12 mmol/L 10 - 20 MG- Otolaryngol [facility] Work Phone: Calcium [Mass/Vol] 7.9 mg/dL below low threshold 8.6 - 10.6 MG-[facility]tolaryngol [facility] Work Phone: Chloride [Moles/Vol] 98 mmol/L 98 - 107 [facility]laryngol [facility] Work Phone: CO2 [Moles/Vol] 26 mmol/L 21 - 32 MG-Otolar yngol [facility] Work Phone: Creatinine [Mass/Vol] 0.32 mg/dL below low threshold See Below MG-Otolaryngol [facility] Work Phone: Comment on above: Reference Range: 0.5 0 - 1.30 Glucose [Mass/Vol] 94 mg/dL 74 - 99 MG-[facility] laryngol [facility] Work Phone: Phosphate [Mass/Vol] 3.4 mg/dL 2.5 [...] 4.6 mmol/L 3.5 - 5.3 MG- Otolaryngol [facility] Work Phone: Sodium [Moles/Vol] 131 mmol/L below low threshold 136 - 145 MG-Otolaryngol [facility] Work Phone: Urea nitrogen [Mass/Vol] 11 mg/dL 6 - 23 [facility] Work Phone: Renal Function Panel >90 >90 MG-O tolaryngol [facility] Work Phone: Comment on above: CALCULATIONS OF JORGE MATED GFR ARE PERFORMED USING THE 2020 CKD-EPI STUDY REFIT EQUATION WITHOUT THE RACE VARIABLE FOR THE IDMS-TRACEABLE CREATININE METHODS.https://jasn.asnjournals.org/content// ASN.3811510342 Laboratory - Chemistry and C hemistry - challengeon 11-12-2021 Glucose [Mass/Vol] 160 mg/dL above high threshold 74 - 99 [facility] Work Phone: Glucose [Mass/Vol] 100 mg/dL above high threshold 74 - 99 [facility]aryngol [facility] Work Phone: Glucose [Mass/Vol] 69 mg/dL below low threshold 74 - 99 [facility]aryngol [facility] Work Phone: Glucose [Mass/Vol] 120 mg/dL above high threshold 74 - 99 [facility]ol [facility] Work Phone: Laboratory - Hematology and Cell countson 11-12-2021 Erythrocyte distribution width (RBC) [Ratio] 14.4 % See Below [facility]aryngol [facility] Work Phone: Comment on above: Reference Range: 11. 5 - 14.5 Hematocrit (Bld) [Volume fraction] 30.4 % below low threshold See Below [facility]ol [facility] Work Phone: Comment on above: Reference Range: 41. 0 - 52.0 Hemoglobin (Bld) [Mass/Vol] 10.4 g/dL below low threshold See Below [facility] Work Phone: Comment on above: Reference Range: 13. 5 - 17.5 MCHC (RBC) [Mass/Vol] 34.2 g/dL See Below MG- Otolaryngol [facility] Work Phone: Comment on above: Reference Range: 32. 0 - 36.0 MCV (RBC) [Entitic vol] 95 fL 80 - 100 M G-Otolaryngol [facility] Work Phone: Platelets (Bld) [#/Vol] 331 10*3/uL 150 - 450 MG-Otolaryngol [facility] Work Phone: RBC (Bld) [#/Vol] 3.21 {x10E12/L} below low threshold See Below [facility]tolaryngol [facility] Work Phone: Comment on above: Reference Range: 4.5 0 - 5.90 WBC (Bld) [#/Vol] 5.9 10*3/uL 4.4 - 11.3 MG-Aniket laryngol [facility] Work Phone: Magnesium, Serumon 2 Magnesium [Mass/Vol] 1.90 mg/dL See Below MG-O tolaryngol [facility] Work Phone: Comment on above: Reference Range: 1.6 0 - 2.40 No Panel Informationon 11-12 0.0 {/100_WBC} 0.0-0.0 MG-Otolary ngol [facility] Work Phone: Renal Function Panelon 11-12 Albumin BCP dye [Mass/Vol] 2.6 g/dL below low threshold 3.4 - 5.0 [facility]aryngol [facility] Work Phone: Anion gap [Moles/Vol] 12 mmol/L 10 - 20 MG- Otolaryngol [facility] Work Phone: Calcium [Mass/Vol] 7.6 mg/dL below low threshold 8.6 - 10.6 MG-Otolaryngol [facility] Work Phone: Chloride [Moles/Vol] 101 mmol/L 98 - 107 MG-O tolaryngol [facility] [...] 4.0 mmol/L 3.5 - 5.3 MG- Otolaryngol [facility] Work Phone: Sodium [Moles/Vol] 135 mmol/L below [...] RACE VARIABLE FOR THE IDMS-TRACEABLE CREATININE METHODS.https://jasn.asnjournals.org/content// ASN.8415838291 Laboratory - Chemistry and C hemistry - challengeon 11-11-2021 Glucose [Mass/Vol] 154 mg/dL above high threshold 74 - 99 MG-Otolaryngol [facility] Work Phone: Glucose [Mass/Vol] 108 mg/dL above high threshold 74 - 99 [facility]ol [facility] Work Phone: Glucose [Mass/Vol] 140 mg/dL above high threshold 74 - 99 [facility]Otolaryngol [facility] Work Phone: Glucose [Mass/Vol] 187 mg/dL above high threshold 74 - 99 [facility]-Otolaryngol [facility] Work Phone: Laboratory - Hematology and Cell countson 11-11-2021 Erythrocyte distribution width (RBC) [Ratio] 14.0 % See Below MG-Otolaryngol [facility] Work Phone: Comment on above: Reference Range: 11. 5 - 14.5 Hematocrit (Bld) [Volume fraction] 29.5 % below low threshold See Below [facility]ol [facility] Work Phone: Comment on above: Reference Range: 41. 0 - 52.0 Hemoglobin (Bld) [Mass/Vol] 9.9 g/dL below low threshold See Below [facility]tolaryngol [facility] Work Phone: Comment on above: Reference Range: 13. 5 - 17.5 MCHC (RBC) [Mass/Vol] 33.6 g/dL See Below MG- Otolaryngol [facility] Work Phone: Comment on above: Reference Range: 32. 0 - 36.0 MCV (RBC) [Entitic vol] 96 fL 80 - 100 M G-Otolaryngol [facility] Work Phone: Platelets (Bld) [#/Vol] 308 10*3/uL 150 - 450 MG-Otolaryngol [facility] Work Phone: RBC (Bld) [#/Vol] 3.06 {x10E12/L} below low threshold See Below MG-Otolaryngol [facility] Work Phone: Comment on above: Reference Range: 4.5 0 - 5.90 WBC (Bld) [#/Vol] 11.2 10*3/uL 4.4 - 11.3 MG-Ot olaryngol [facility] Work Phone: Magnesium, Serumon Magnesium [Mass/Vol] 1.90 mg/dL See Below MG-O tolaryngol [facility] Work Phone: Comment on above: Reference Range: 1.6 0 - 2.40 No Panel Informationon 11-11 0.0 {/100_WBC} 0.0-0.0 MG-Otolary ngol [facility] Work Phone: Radiologyon 11-11-2021 XR Chest Single view Normal MG-O tolaryngol [facility] Work Phone: Renal Function Panelon 11-11 Albumin BCP dye [Mass/Vol] 2.4 g/dL below low threshold 3.4 - 5.0 MG-Otolaryngol [facility] Work Phone: Anion gap [Moles/Vol] 11 mmol/L 10 - 20 MG- Otolaryngol [facility] Work Phone: Calcium [Mass/Vol] 7.5 mg/dL below low threshold 8.6 - 10.6 MG-Otolaryngol [facility] Work Phone: Chloride [Moles/Vol] 98 mmol/L 98 - 107 MG-O tolaryngol [facility] Work Phone: CO2 [Moles/Vol] 28 mmol/L 21 - 32 MG-Otolar yngol [facility] Work Phone: Creatinine [Mass/Vol] 0.20 mg/dL below low threshold See Below MG-Otolaryngol [facility] Work Phone: Comment on above: Reference Range: 0.5 0 - 1.30 Glucose [Mass/Vol] 115 mg/dL above high threshold 74 - 99 MG-Otolaryngol [facility] Work Phone: Phosphate [Mass/Vol] 2.6 mg/dL 2.5 - 4.9 MG-O tolaryngol [facility] Work Phone: Comment on above: The performance adryan acteristics of phosphorus testing in heparinized plasma have been validated by the individual laboratory site where testing is performed. Testing on heparinized plasma is not approved by the FDA; however, such approval is not necessary. Potassium [Moles/Vol] 3.7 mmol/L 3.5 - 5.3 MG- Otolaryngol [facility] Work Phone: Sodium [Moles/Vol] 133 mmol/L below low threshold 136 - 145 MG-Otolaryngol [facility] Work Phone: Urea nitrogen [Mass/Vol] 10 mg/dL 6 - 23 MG-Otolaryngol [facility] Work Phone: Renal Function Panel >90 >90 MG-O tolaryngol [facility] Work Phone: Comment on above: CALCULATIONS OF JORGE MATED GFR ARE PERFORMED USING THE 2020 CKD-EPI STUDY REFIT EQUATION WITHOUT THE RACE VARIABLE FOR THE IDMS-TRACEABLE CREATININE METHODS.https://jasn.asnjournals.org/content// ASN.7373423302 Laboratory - Chemistry and C hemistry - challengeon 11-10-2021 Glucose [Mass/Vol] 211 mg/dL above high threshold 74 - 99 MG-Otolaryngol [facility] Work Phone: Laboratory - Hematology and Cell countson 11-10-2021 Erythrocyte distribution width (RBC) [Ratio] 14.3 % See Below MG-Otolaryngol [facility] Work Phone: Comment on above: Reference Range: 11. 5 - 14.5 Hematocrit (Bld) [Volume fraction] 30.0 % below low threshold See Below MG-Otolaryngol [facility] Work Phone: Comment on above: Reference Range: [...] 97 fL 80 - 100 M G-Otolaryngol [facility] Work Phone: Platelets (Bld) [#/Vol] 275 10*3/uL 150 - 450 MG-Otolaryngol [facility] Work Phone: RBC (Bld) [#/Vol] 3.10 {x10E12/L} below low threshold See Below MG-Otolaryngol [facility] Work Phone: Comment on above: Reference Range: 4.5 0 - 5.90 WBC (Bld) [#/Vol] 11.2 10*3/uL 4.4 - 11.3 MG-Ot olaryngol [facility] Work Phone: Magnesium, Serumon Magnesium [Mass/Vol] 1.90 mg/dL See Below MG-O tolaryngol [facility]gy[facility] Work Phone: Comment on above: Reference Range: 1.6 0 - 2.40 No Panel Informationon 11-10 0.0 {/100_WBC} 0.0-0.0 MG-Otolary ngol [facility] Work Phone: Renal Function Panelon 11-10 Albumin BCP dye [Mass/Vol] 2.6 g/dL below low threshold 3.4 - 5.0 MG-Otolaryngol [facility] Work Phone: Anion gap [Moles/Vol] 11 mmol/L 10 - 20 MG- Otolaryngol [facility] Work Phone: Calcium [Mass/Vol] 7.9 mg/dL below low threshold 8.6 - 10.6 MG-Otolaryngol [facility] Work Phone: Chloride [Moles/Vol] 98 mmol/L 98 - 107 MG-O tolaryngol [facility] Work Phone: CO2 [Moles/Vol] 30 mmol/L 21 - 32 MG-Otolar yngol [facility] Work Phone: Creatinine [Mass/Vol] 0.26 mg/dL below low threshold See Below MG-Otolaryngol [facility] Work Phone: Comment on above: Reference Range: 0.5 0 - 1.30 Glucose [Mass/Vol] 134 mg/dL above high threshold 74 - 99 MG-Otolaryngol [facility] Work Phone: Phosphate [Mass/Vol] 3.9 mg/dL 2.5 - 4.9 MG-O tolaryngol [facility] Work Phone: Comment on above: The performance [...] RACE VARIABLE FOR THE IDMS-TRACEABLE CREATININE METHODS.https://jasn.asnjournals.org/content/early// ASN.1328127565 Laboratory - Chemistry and C hemistry - challengeon 11-09-2021 Glucose [Mass/Vol] 106 mg/dL above high threshold 74 - 99 MG-Otolaryngol [facility] Work Phone: Glucose [Mass/Vol] 149 mg/dL above high threshold 74 - 99 MG-Otolaryngol [facility] Work Phone: Glucose [Mass/Vol] 105 mg/dL above high threshold 74 - 99 MG-Otolaryngol [facility] Work Phone: Laboratory - Hematology and Cell countson 11-09-2021 Erythrocyte distribution width (RBC) [Ratio] 13.9 % See Below MG-Otolaryngol [facility] Work Phone: Comment on above: Reference Range: [...] [Mass/Vol] 34.9 g/dL See Below MG- Otolaryngol [facility] Work Phone: Comment on above: Reference Range: [...] 10.3 10*3/uL 4.4 - 11.3 MG-Ot olaryngol [facility] Work Phone: Magnesium, Serumon Magnesium [Mass/Vol] 1.76 mg/dL See Below MG-O tolaryngol ogy-[facility] Work Phone: Comment on above: Reference Range: 1.6 0 - 2.40 No Panel Informationon 11-09 0.0 {/100_WBC} 0.0-0.0 MG-Otolary ngol [facility] Work Phone: Renal Function Panelon 11-09 Albumin BCP dye [Mass/Vol] 2.8 g/dL below low threshold 3.4 - 5.0 MG-Otolaryngol [facility] Work Phone: Anion gap [Moles/Vol] 11 mmol/L 10 - 20 MG- Otolaryngol [facility] Work Phone: Calcium [Mass/Vol] 7.7 mg/dL below low threshold 8.6 - 10.6 MG-Otolaryngol [facility] Work Phone: Chloride [Moles/Vol] 94 mmol/L below low threshold 98 - 107 MG-Otolaryngol [facility] Work Phone: CO2 [Moles/Vol] 29 mmol/L 21 - 32 MG-Otolar yngol [facility] Work Phone: Creatinine [Mass/Vol] mg/dL See Below MG- Otolaryngol [facility] Work Phone: Comment on above: Reference Range: 0.5 0 - 1.30 Glucose [Mass/Vol] 112 mg/dL above high threshold 74 - 99 MG-Otolaryngol [facility] Work Phone: Phosphate [Mass/Vol] 2.2 mg/dL below low threshold 2.5 - 4.9 MG-Otolaryngol [facility] Work Phone: Comment on above: The performance adryan acteristics of phosphorus testing in heparinized plasma have been validated by the individual laboratory site where testing is performed. Testing on heparinized plasma is not approved by the FDA; however, such approval is not necessary. Potassium [Moles/Vol] 3.4 mmol/L below low threshold 3.5 - 5.3 MG-Otolaryngol [facility] Work Phone: Sodium [Moles/Vol] 131 mmol/L below low threshold 136 - 145 MG-Otolaryngol [facility] Work Phone: Urea nitrogen [Mass/Vol] 7 mg/dL 6 - 23 MG-Otolaryngol [facility] Work Phone: Renal Function Panel >90 >90 MG-O tolaryngol ogy[facility] Work Phone: Comment on above: CALCULATIONS OF JORGE MATED GFR ARE PERFORMED USING THE 2020 CKD-EPI STUDY REFIT EQUATION WITHOUT THE RACE VARIABLE FOR THE IDMS-TRACEABLE CREATININE METHODS.https://jasn.asnjournals.org/content// ASN.1286364064 Laboratory - Chemistry and C hemistry - challengeon 11-08-2021 Glucose [Mass/Vol] 130 mg/dL above high threshold 74 - 99 MG-Otolaryngol [facility]gy[facility] Work Phone: Glucose [Mass/Vol] 106 mg/dL above high threshold 74 - 99 MG-Otolaryngol [facility] Work Phone: Glucose [Mass/Vol] 122 mg/dL above high threshold 74 - 99 MG-Otolaryngol [facility] Work Phone: Laboratory - Hematology and Cell countson 11-08-2021 Erythrocyte distribution width (RBC) [Ratio] 14.1 % See Below MG-Otolaryngol [facility] Work Phone: Comment on above: Reference Range: 11. 5 - 14.5 Hematocrit (Bld) [Volume fraction] 35.2 % below low threshold See Below MG-Otolaryngol ogy[facility] Work Phone: Comment on above: Reference Range: 41. 0 - 52.0 Hemoglobin (Bld) [Mass/Vol] 12.0 g/dL below low threshold See Below MG-Otolaryngol [facility] Work Phone: Comment on above: Reference Range: 13. 5 - 17.5 MCHC (RBC) [Mass/Vol] 34.1 g/dL See Below MG- Otolaryngol ogamanda-[facility] Work Phone: Comment on above: Reference Range: 32. 0 - 36.0 MCV (RBC) [Entitic vol] 95 fL 80 - 100 M G-Otolaryngol [facility] Work Phone: Platelets (Bld) [#/Vol] 342 10*3/uL 150 - 450 MG-Otolaryngol [facility]anda[facility] Work Phone: RBC (Bld) [#/Vol] 3.71 {x10E12/L} below low threshold See Below MG-Otolaryngol ogy[facility] Work Phone: Comment on above: Reference Range: 4.5 0 - 5.90 WBC (Bld) [#/Vol] 9.5 10*3/uL 4.4 - 11.3 MG-Aniket laryngol ogy-[place] Work Phone: Magnesium, Serumon Magnesium [Mass/Vol] 1.67 mg/dL See Below MG-O tolaryngol ogy[facility] Work Phone: Comment on above: Reference Range: 1.6 0 - 2.40 No Panel Informationon 11-08 0.0 {/100_WBC} 0.0-0.0 MG-Otolary ngol [facility] Work Phone: Renal Function Panelon 11-08 Albumin BCP dye [Mass/Vol] 3.6 g/dL 3.4 - 5.0 MG-Otolaryngol [facility] Work Phone: Anion gap [Moles/Vol] 16 mmol/L 10 - 20 MG- Otolaryngol [facility] Work Phone: Calcium [Mass/Vol] 8.3 mg/dL below low threshold 8.6 - 10.6 MG-Otolaryngol [facility] Work Phone: Chloride [Moles/Vol] 93 mmol/L below low threshold 98 - 107 MG-Otolaryngol [facility] Work Phone: CO2 [Moles/Vol] 27 mmol/L 21 - 32 MG-Otolar yngol ogy-[facility] Work Phone: Creatinine [Mass/Vol] 0.38 mg/dL below low threshold See Below MG-Otolaryngol [facility] Work Phone: Comment on above: Reference Range: 0.5 0 - 1.30 Glucose [Mass/Vol] 84 mg/dL 74 - 99 MG-Aniket laryngol ogy[facility] Work Phone: Phosphate [Mass/Vol] 2.8 mg/dL 2.5 - 4.9 MG-O tolaryngol ogy[facility] Work Phone: Comment on above: The performance [...] below low threshold 136 - 145 MG-Otolaryngol [facility] Work Phone: Urea nitrogen [Mass/Vol] 6 mg/dL 6 - 23 MG-Otolaryngol [facility] Work Phone: Renal Function Panel >90 >90 MG-O tolaryngol ogy-[facility] Work Phone: Comment on above: CALCULATIONS OF JORGE MATED GFR ARE PERFORMED USING THE 2020 CKD-EPI STUDY REFIT EQUATION WITHOUT THE RACE VARIABLE FOR THE IDMS-TRACEABLE CREATININE METHODS.https://jasn.asnjournals.org/content/early/ ASN.0599325505 Laboratory - Blood bankon ABO group Nom (Bld) A MG-Ot olaryngol ogy-[place] [address] Work Phone: Rh immune globulin screen (Bld) [Interp] Positive MG-Otolary ngol [facility]-[place] [facility] Work Phone: Laboratory - Chemistry and C hemistry - challengeon 11-07-2021 Anion gap (Bld) [Moles/Vol] 11 mmol/L 10 - 25 MG-Otolaryngol [facility]-[place] [address] Work Phone: Calcium.ionized (Bld) [Moles/Vol] 1.09 mmol/L below low threshold See Below MG-Otolaryngol [facility] [facility] Work Phone: Comment on above: Reference Range: 1.1 0 - 1.33 Chloride [Moles/Vol] 96 mmol/L below low threshold 98 - 107 MG-Otolaryngol [facility] [facility] Work Phone: CO2 (Bld) [Partial pressure] 38 mm[Hg] 38 - 42 MG-Otolaryngol [facility]-[place] [address] Work Phone: Glucose [Mass/Vol] 122 mg/dL above high threshold 74 - 99 MG-Otolaryngol [facility] [address] Work Phone: HCO3 (Bld) [Moles/Vol] 25.8 mmol/L See Below M G-Otolaryngol [facility]-[place] [facility] Work Phone: Comment on above: Reference Range: 22. 0 - 26.0 Lactate [Moles/Vol] 0.9 mmol/L 0.4 - 2.0 MG-Ot olaryngol [facility]-[place] [address] Work Phone: Oxygen (Bld) [Partial pressure] 190 mm[Hg] above high threshold 85 - 95 MG-Otolaryngol [facility] [facility] Work Phone: pH (Bld) 7.44 [pH] above high threshold See Below MG-Otolaryngol [facility] [address] Work Phone: Comment on above: Reference Range: 7.3 8 - 7.42 Potassium [Moles/Vol] 3.7 mmol/L 3.5 - 5.3 MG- Otolaryngol [facility] [address] Work Phone: Sodium [Moles/Vol] 129 mmol/L below low threshold 136 - 145 MG-Otolaryngol [facility]-[place] [address] Work Phone: Anion gap (Bld) [Moles/Vol] 9 mmol/L below low threshold 10 - 25 MG-Otolaryngol [facility]-[place] [address] Work Phone: Calcium.ionized (Bld) [Moles/Vol] 1.08 mmol/L below low threshold See Below MG-Otolaryngol [facility]-[place] [address] Work Phone: Comment on above: Reference Range: 1.1 0 - 1.33 Chloride [Moles/Vol] 95 mmol/L below low threshold 98 - 107 MG-Otolaryngol [facility] [address] Work Phone: CO2 (Bld) [Partial pressure] 37 mm[Hg] below low threshold 38 - 42 MG-Otolaryngol [facility]-[place] [address] Work Phone: Glucose [Mass/Vol] 109 mg/dL above high threshold 74 - 99 MG-Otolaryngol [facility]-[place] [address] Work Phone: HCO3 (Bld) [Moles/Vol] 26.9 mmol/L above hig h threshold See Below MG-Otolaryngol [facility] [address] Work Phone: Comment on above: Reference Range: 22. 0 - 26.0 Lactate [Moles/Vol] 0.6 mmol/L 0.4 - 2.0 MG-Ot olaryngol o[facility]-[place] [address] Work Phone: Oxygen (Bld) [Partial pressure] 209 mm[Hg] above high threshold 85 - 95 MG-Otolaryngol [facility] [address] Work Phone: pH (Bld) 7.47 [pH] above high threshold See Below MG-Otolaryngol [facility] [address] Work Phone: Comment on above: Reference Range: 7.3 8 - 7.42 Potassium [Moles/Vol] 4.0 mmol/L 3.5 - 5.3 MG- Otolaryngol o[facility]-[place] [address] Work Phone: Sodium [Moles/Vol] 127 mmol/L below low threshold 136 - 145 MG-Otolaryngol [facility]-[place] [address] Work Phone: Laboratory - Hematology and Cell countson 11-07-2021 Hematocrit (Bld) [Volume fraction] 36.0 % below low threshold See Below MG-Otolaryngol [facility]-[place] [address] Work Phone: Comment on above: Reference Range: 41. 0 - 52.0 Hemoglobin (Bld) [Mass/Vol] 12.2 g/dL below low threshold See Below MG-Otolaryngol [facility]-[place] [address] Work Phone: Comment on above: Reference Range: 13. 5 - 17.5 Hematocrit (Bld) [Volume fraction] 38.0 % below low threshold See Below MG-Otolaryngol [facility] [address] Work Phone: Comment on above: Reference Range: 41. 0 - 52.0 Hemoglobin (Bld) [Mass/Vol] 12.9 g/dL below low threshold See Below MG-Otolaryngol [facility] [address] Work Phone: Comment on above: Reference Range: 13. 5 - 17.5 No Panel Informationon 11-07 1.7 mmol/L -2.0 - 3.0 MG-Otolaryngol [facility] [address] Work Phone: 100 % 94 - 100 MG-Otolaryngol [facility] [facility] Work Phone: 37.0 {degrees_C} MG-Otola ryngol [facility]-[place] [address] Work Phone: Comment on above: NOTE: PATIENT RESULT S ARE NOT CORRECTED FOR TEMPERATURE. 3.2 mmol/L above high threshold -2.0 - 3.0 MG-Otolaryngol [facility] [address] Work Phone: 100 % 94 - 100 MG-Otolaryngol [facility] [address] Work Phone: 37.0 {degrees_C} MG-Otola ryngol [facility]-[place] [address] Work Phone: Comment on above: NOTE: PATIENT RESULT S ARE NOT CORRECTED FOR TEMPERATURE. MG-Otolaryngol [facility]gy-[facility] Work Phone: Coronavirus 2019 RNA by PCR, Screening Asymptomticon 11-06-2021 Coronavirus 2019 RNA by PCR, Screening Asymptomtic Not detected Normal See Below MG-Otolaryngol [facility] [address] Work Phone: Comment on above: SOURCE: [...] make patient management decisions.Fact sheet for providers: https://www.fda.gov/media/670465/downloadFact sheet for patients: https://www.fda.gov/media/775581/downloadThis test has received FDA Emergency Use Authorization (EUA) and has been verified by [facility] ([facility]). This test is only authorized for the duration of time that circumstances exist to justify the authorization of the emergency use of in vitro diagnostic tests for the detection of SARS-CoV-2 virus and/or diagnosis of COVID-19 infection under section 564(b)(1) of the Act, 21 U.S.C. 360bbb-3(b)(1), unless the authorization is terminated or revoked sooner. [facility] is certified under CLIA-88 as qualified to perform high complexity testing. Testing is performed in the [facility] laboratories located at [address] [place] [address]. Laboratory - Coagulationon 0 11-02-2021 aPTT Coag (PPP) [Time] 35 s 26 - 39 MG -Otolaryngol [facility] Work Phone: Comment on above: Note new [...] MG-Otolaryngol [facility] Work Phone: Tobacco use status [facility] b) No M G-Otolaryngol [facility] Work Phone: CT Neck with Contraston CT Neck W contrast IV Please click on e link to view the study images Normal MG-Anesthesiol [facility]gy[facility] Work Phone: CT Neck W contrast IV Normal MG- Otolaryngol ogy-[facility] [place] [address] Work Phone: CTA ABD Aorta With Bilat Tamar ofem Extr Runoff w/wo Cont Post Procon 10-31-2021 CTA ABD Aorta With Bilat Iliofem Extr Runoff w/wo Cont Post Proc Please click on the link to view the study images Normal MG-Anesthesiol [facility]gy-[facility] Work Phone: CTA ABD Aorta With Bilat Iliofem Extr Runoff w/wo Cont Post Proc Normal MG-Otolaryngol ogy-[facility] [place] [address] Work Phone: Complete Blood Count [...] RACE VARIABLE FOR THE IDMS-TRACEABLE CREATININE METHODS.https://jasn.asnjournals.org/content/early/ ASN.[email or web address] [email or web address]?RetrieveTestByDate Time?[id number] 2&Date=08-02-2022&Time= 14%3a18%3a57%3a00&TestT ype=ECG&Site=1&OutputTy pe=PDF&Ext=PDF MG-Otolaryngol [facility]-[place] Work Phone: Normal sinus rhythm MG-Ot olaryngol [facility] Work Phone: Borderline Abnormal MG-Ot olaryngol [facility] Work Phone: 403 1 MG-Otolaryngol [facility] Work Phone: 391 1 MG-Otolaryngol [facility] Work Phone: 190 1 MG-Otolaryngol [facility] Work Phone: 139 1 [facility]tolaryngol [facility] Work Phone: 214 1 [facility]tolaryngol [facility] Work Phone: 15 1 [facility]tolaryngol [facility] Work Phone: 58 1 [facility]tolaryngol [facility] Work Phone: 92 1 [facility]tolaryngol [facility] Work Phone: 81 1 [facility]tolaryngol [facility] Work Phone: 430 1 [facility]tolaryngol [facility] Work Phone: 354 1 MG-Otolaryngol [facility] Work Phone: 88 1 MG-Otolaryngol [facility] Work Phone: 150 1 [facility] Work Phone: 89 1 [facility] Work Phone: Radiologyon 10-31-2021 XR Chest 2 Views Normal [facility]siol [facility] Work Phone: TSH - Thyroid Stimulating Ho rmone, Serumon 10-31-2021 TSH Qn 20.51 m[IU]/L above high threshold See Below [facility]-Anesthesiol [facility] Work Phone: Comment on above: Reference Range: 0.4 4 - 3.98 TSH testing is performed using different testing methodology at [facility] than at other [facility]. Direct result comparisons should only be made within the same method. Blood Urea Nitrogen, Serumon 10-25-2021 Urea nitrogen [Mass/Vol] 8 mg/dL 6 - 23 [facility]Otolaryngol ogy-[facility] [place] [address] Work Phone: Creatinine, Serumon 10-25-19 Creatinine [Mass/Vol] 0.36 mg/dL below low threshold See Below [facility]-Otolaryngol ogy-[facility] [place] [address] Work Phone: Comment on above: Reference Range: 0.5 0 - 1.30 Creatinine, Serum >90 >90 MG-Otol aryngol ogy-Admin [place] [address] Work Phone: Comment on above: CALCULATIONS OF JORGE MATED GFR ARE PERFORMED USING THE 2020 CKD-EPI STUDY REFIT EQUATION WITHOUT THE RACE VARIABLE FOR THE IDMS-TRACEABLE CREATININE METHODS.https://jasn.asnjournals.org/content// ASN.5403232575 Tobacco Screening.on 022 Fall risk assessment a) No falls within the last year [facility] Work Phone: Tobacco use status [facility] a) Yes M [facility] Work Phone: Tobacco Screening. Yes MP-Aniket laryngol ogy-[place] Work Phone: Nikhil 10-03-2021 CNPN Telephone (OTOLMM) MY JAMA ([id number]) 1960 M Date Time Provider Department 10/03/21 [...] to stop his hyperbaric oxygen therapy. ENT clinical pharmacy technician was messaged and will call the patient tomorrow. They had no further questions. Laurita Mabry MD Marcell Arturo 10/04/2021 8:48 AM Signed Lul, A nurse from [employer] named Georgina called in this morning to [...] Rachel Brooks; ENT. Her telephone number is [phone] (Pat) Just letting you guys know FOR Records Purposes: (PT wants us to fax them info) Their fax is [phone] I will fax what is needed. Renzo Pichardo MD 10/04/2021 11:14 AM Signed gregorio Chacko 10/04/2021 4:26 PM [facility]igned [facility] in the past. 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 They are asking for OV notes, path results. Please fax to them at [phone]. Siobhan Eli Pss 10/05/2021 2:15 PM Signed [...] Encounter Status:Closed by LAURITA MABRY on 10/03/21 [facility] CNOVdarlyn 10-02-2021 CNOV Office Visit (OTOLMM ) MY JAMA ([id number]) 1960 M Date Time Provider Department 10/02/21 3:00 PM JESIKA PICHARDO OTDAQUAN During your visit today, we recorded the [...] electronic medical record. Referring Provider: JESIKA PICHARDO [[id number]] Allergies As of Date: 10/02/2021 (No Known [...] Encounter Status:Closed by JESIKA PICHARDO on 10/02/21 [facility] CNOVon 09-28-2021 CNOV Office Visit (OTOLMM ) MY JAMA ([id number]) 1960 M Date Time Provider Department 09/28/21 [...] waiting adequat (more content not included)... Normal [facility] SURGICAL PATHOLOGYon 022 SURGICAL PATHOLOGY Specimen originated from [facility] Specimen #: [id number] Submitting Physician: LAURITA MABRY FINAL DIAGNOSIS Gingiva, [...] hybridization tests have been determined by [facility]'s [facility] Medicine [place] ([facility] in a manner consistent with CLIA requirements. One or more of these tests have not been cleared or approved by the FDA. [facility] is regulated under CLIA as qualified to [...] JOAO/vic 09/29/2021 Gross examination performed at [facility], [facility] [place] [address] Date of Report: 10/03/2021 Date of Procedure: 09/28/2021 Date of Receipt: 09/29/2021 Submitted by: LAURITA MABRY [facility]: [facility] Diagnostic interpretation performed at [facility], [address] [place] [address]. CLIA Number: [id number] Normal [facility] Urinalysis, Office ([id number])on 08-15-2021 Bilirubin Ql (U) Negative Normal Comprehe [...] (U) Negative Normal Comprehens sruthi Internal Medicine; [facility] Internal Medicine Work Phone: pH (U) 7 [...] Medicine Work Phone: Metabolic Panel, Comprehensi ve ([id number])Ordered By: Client Hr Manager on 07-26-2021 Albumin [Mass/Vol] 4.3 g/dL Normal 3.8-4.9 [facility]; [facility] Internal Medicine Work Phone: Comment on above: PATIENT NOT FASTINGP ERFORMED BY: [employer]6370 5to1[facility] [id number] Albumin/Globulin [Mass ratio] 1.4 {ratio} Normal 1.2-2.2 [facility]; [facility] Work Phone: Comment on above: PATIENT NOT FASTINGP ERFORMED BY: [employer]6370 5to1[facility] [id number] ALP [Catalytic activity/Vol] 115 U/L Normal 44-121 [facility]; [facility] Work Phone: Comment on above: Please note refere nce interval change PATIENT NOT FASTINGP ERFORMED BY: CB [facility] Quccid5822 Dick RoadDublin [place] [id number] ALT [Catalytic activity/Vol] 12 U/L Normal 0-44 [facility]; [facility] Work Phone: Comment on above: PATIENT NOT FASTINGP ERFORMED BY: CB [facility] Mydaed3610 Dick RoadDublin [place] [id number] AST [Catalytic activity/Vol] 19 U/L Normal 0-40 [facility]; [facility] Work Phone: Comment on above: PATIENT NOT FASTINGP ERFORMED BY: CB [facility] Wppbll0555 Dick RoadDublin [place] [id number] Bilirubin [Mass/Vol] 0.2 mg/dL Normal 0.0-1.2 Comp rehensive Internal Medicine; [facility] Work Phone: Comment on above: PATIENT NOT FASTINGP ERFORMED BY: CB [facility] Dnhapd5852 Dick RoadDublin [place] [id number] Calcium [Mass/Vol] 9.4 mg/dL Normal 8.7-10.2 [facility] Internal [facility]; [facility] Work Phone: Comment on above: PATIENT NOT FASTINGP ERFORMED BY: CB [facility] Gxhyox1382 [address] RoadDublin [place] [id number] Chloride [Moles/Vol] 86 mmol/L Abnormal 96-106 Comp rehensive Internal Medicine; [facility] Work Phone: Comment on above: PATIENT NOT FASTINGP ERFORMED BY: CB [facility] Bwntil4270 [address] RoadDublin [place] [id number] CO2 [Moles/Vol] 24 mmol/L Normal 20-29 Comprehen [facility] Internal Medicine; [facility] Work Phone: Comment on above: PATIENT NOT FASTINGP ERFORMED BY: CB [facility] Qwjuoy9906 [address] RoadDublin [place] [id number] Creatinine [Mass/Vol] 0.53 mg/dL Abnormal 0.76-1.27 [facility] prehensive Internal Medicine; [facility] Work Phone: Comment on above: PATIENT NOT FASTINGP ERFORMED BY: SAGRARIO Cuevas[address] [place] [id number] GFR/1.73 sq M.predicted among blacks CKD-EPI (S/P/Bld) [Vol rate/Area] 134 mL/min/1.73 Normal [facility]; [facility] Work Phone: Comment on above: In accordance with recommendations from the NKF-ASN Task force, Alex is in the process of updating its eGFR calculation to the 2020 CKD-EPI creatinine equation that estimates kidney function without a race variable. PATIENT NOT FASTINGP ERFORMED BY: SAGRARIO Cuevas63Nicol [facility]Good [facility] Hospital [id number] GFR/1.73 sq M.predicted among non-blacks CKD-EPI (S/P/Bld) [Vol rate/Area] 116 mL/min/1.73 Normal [facility]; [facility] Work Phone: Comment on above: PATIENT NOT FASTINGP ERFORMED BY: SAGRARIO Cuevas6370 Kapil GranadosAtrium Health [facility] [id number] Globulin (S) [Mass/Vol] 3.1 g/dL Normal 1.5-4.5 [facility]; [facility] Work Phone: Comment on above: PATIENT NOT FASTINGP ERFORMED BY: SAGRARIO Cuevas6370 Kapil GranadosAtrium Health [facility] [id number] Glucose [Mass/Vol] 108 mg/dL Abnormal 65-99 [facility] Internal Medicine; [facility] Work Phone: Comment on above: PATIENT NOT FASTINGP ERFORMED BY: SAGRARIO Cuevas6370 DickMid [facility] [id number] Potassium [Moles/Vol] 4.5 mmol/L Normal 3.5-5.2 [facility] prehensive Internal Medicine; [facility] Work Phone: Comment on above: PATIENT NOT FASTINGP ERFORMED BY: SAGRARIO Cuevas6370 [facility] [id number] Protein [Mass/Vol] 7.4 g/dL Normal 6.0-8.5 [facility] Internal [facility]; [facility] Work Phone: Comment on above: PATIENT NOT FASTINGP ERFORMED BY: SAGRARIO [facility] Vmyoja7026 Dick RoadDublin [place] [id number] Sodium [Moles/Vol] 125 mmol/L Abnormal 134-144 [facility] Internal [facility]; [facility] Work Phone: Comment on above: PATIENT NOT FASTINGP ERFORMED BY: [facility] Erjlez6150 [address] RoadDublin [place] [id number] Urea nitrogen [Mass/Vol] 7 mg/dL Normal 6-24 [facility]; [facility] Work Phone: Comment on above: PATIENT NOT FASTINGP ERFORMED BY: [facility] Clhrnj1786 Dick RoadDublin [place] [id number] Urea nitrogen/Creatinine [Mass ratio] 13 mg/mg Normal 9-20 [facility]; [facility] Work Phone: Comment on above: PATIENT NOT FASTINGP ERFORMED BY: [facility] Dmkvfl5630 Dick RoadDublin [place] [id number] TSH (THYROID STIMULATING HOR NIK) ([id number])Ordered By: Client Hr Manager on 07-26-2021 TSH Qn 34.100 {uIU/mL} Abnormal 0.450-4.50 0 [facility]; [facility] Work Phone: Comment on above: PATIENT NOT FASTINGP ERFORMED BY: [facility] Slcsrb3651 [address] RoadDublin [place] [id number] VITAMIN B12 AND FOLATES (826 [id number])Ordered By: Client Hr Manager on 07-26-2021 Cobalamin (Vitamin B12) [Mass/Vol] 627 pg/mL Normal 232-1245 [facility]; [facility] Work Phone: Comment on above: PATIENT NOT FASTINGP ERFORMED BY: [facility] Geykuu9071 [address] RoadDublin [place] [id number] Folate [Mass/Vol] 3.1 ng/mL Normal Compreh ensive Internal Medicine; [facility] Work Phone: Comment on above: A serum folate jan ntration of less than 3.1 ng/mL isconsidered to represent clinical deficiency. PATIENT NOT FASTINGP ERFORMED BY: [facility] Vgkcja2906 [facility] [id number] TSH (THYROID STIMULATING HOR NIK) ([id number])Ordered By: Client Hr Manager on 11-28-2020 TSH Qn 18.000 {uIU/mL} Abnormal 0.450-4.50 0 [facility]; [facility] Work Phone: Comment on above: Oct 06 2020; PATIENT NOT FASTINGPERFORMED BY: [facility] Kdgabt3170 [facility] [id number] Absolute lymphocyte counton 08-25-2020 Lymphocytes Auto (Unsp spec) [#/Vol] 1.03 10*3/uL 0.83-4.51 [facility] Work Phone: Basophil percentageon 2019 Bilirubin [Mass/Vol] 0.40 mg/dL 0.20-1.00 [facility] Work Phone: Comment on above: For patients on eltr ombopag therapy, use of Dimension [place] TBIL is not recommended. Chloride [Moles/Vol] 91 mmol/L 98-107 [facility] Work Phone: Eosinophils/100 WBC (Bld) 1.5 % 0-5 [facility] Work Phone: Glucose [Mass/Vol] 94 mg/dL 74-106 [facility] Work Phone: Comment on above: Please note revised GLUCOSE reference range effective 2017. Neutrophils (Bld) [#/Vol] 3.5 10*3/uL 2.0-7.7 [facility] Work Phone: Potassium [Moles/Vol] 4.0 mmol/L 3.5-5.1 [facility] Work Phone: Protein [Mass/Vol] 7.7 g/dL 6.4-8.2 [facility] Work Phone: Sodium [Moles/Vol] 127 mmol/L 136-145 [facility] Work Phone: WBC (Bld) [#/Vol] 5.4 10*3/uL 4.4-11.0 [facility] Work Phone: Blood erythrocytes count (nu mber/volume)on 08-25-2020 RBC (Bld) [#/Vol] 3.99 10*6/uL 4.6-6.2 [facility] Work Phone: Blood hemoglobin measurement (mass/volume)on 08-25-2020 Hemoglobin (Bld) [Mass/Vol] 13.1 g/dL 13.0-16.5 [facility] Work Phone: Blood lymphocytes/100 leukoc yteson 08-25-2020 Lymphocytes/100 WBC (Bld) 19.1 % 19-41 [facility] Work Phone: Blood monocytes/100 leukocyt eson 08-25-2020 Monocytes/100 WBC (Bld) 13.9 % 0-10 [facility] Work Phone: Blood platelet mean volumeon 08-25-2020 Platelet mean volume (Bld) [Entitic vol] 8.6 fL 6.2-12.0 [facility] Work Phone: Determination of erythrocyte mean corpuscular volume (MCV)on 08-25-2020 MCV (RBC) [Entitic vol] 92.7 fL 80-94 [facility] Work Phone: Hematocrit Auto (Bld) [Volum e fraction]on 08-25-2020 Hematocrit (Bld) [Volume fraction] 37.0 % 40-54 [facility] Work Phone: Laboratory - Chemistry and C hemistry - challengeon 08-25-2020 ALP [Catalytic activity/Vol] 112 U/L 45-117 [facility] Work Phone: ALT [Catalytic activity/Vol] 64 U/L 16-61 [facility] Work Phone: CO2 [Moles/Vol] 31.0 mmol/L 21.0-32.0 [facility] Work Phone: Globulin (S) [Mass/Vol] 4.0 g/dL 2.2-4.2 [facility] Work Phone: Urea nitrogen/Creatinine [Mass ratio] 24.4 mg/mg 10-20 [facility] Work Phone: Laboratory - Hematology and Cell countson 08-25-2020 Basophils/100 WBC (Unsp spec) 0.7 % 0-1 [facility] Work Phone: Erythrocyte distribution width (RBC) [Entitic vol] 44.8 fL 35.1-43.9 [facility] Work Phone: Erythrocyte distribution width (RBC) [Ratio] 13.1 % 11.6-14.6 [facility] Work Phone: Immature granulocytes/100 WBC (Bld) 0.600 % 0.0-0.9 [facility] Work Phone: Comment on above: IG% - Immature Granu locytes (promyelocytes, myelocytes and metamyelocytes) > 1% indicates that a LEFT SHIFT is Present. MCH (RBC) [Entitic mass] 32.8 pg 27.0-32.0 [facility] Work Phone: Neutrophils/100 WBC (Bld) 64.2 % 47-70 [facility] Work Phone: Nucleated RBC/100 WBC (Bld) [Ratio] 0 % 0-5 [facility] Work Phone: MCHC Auto (RBC) [Mass/Vol]on 08-25-2020 MCHC (RBC) [Mass/Vol] 35.4 g/dL 32-36 [facility] Work Phone: No Panel Informationon 08-25 Estimated Creatinine Clearance Calc 146.22 ml/min [facility] Work Phone: Estimated GFR (MDRD) Amer 247 mL/min >60 [facility] Work Phone: Comment on above: GFR Calc Estimated GFR (MDRD) Non-Af Amer 204 mL/min >60 [facility] Work Phone: Comment on above: Non- GFR Calc Thyroid Stimulating Hormone (TSH) 11.50 uIU/mL 0.358-3.74 [facility] Work Phone: Platelets bldon 08-25-2020 Platelets (Bld) [#/Vol] 272 10*3/uL 150-450 [facility] Work Phone: Serum or plasma albumin yesi urement (mass/volume)on 08-25-2020 Albumin [Mass/Vol] 3.7 g/dL 3.2-5.0 [facility] Work Phone: Serum or plasma albumin/glob ulin mass ratioon 08-25-2020 Albumin/Globulin [Mass ratio] 0.9 {ratio} 0.9-2.4 [facility] Work Phone: Serum or plasma calcium yesi urement (mass/volume)on 08-25-2020 Calcium [Mass/Vol] 9.2 mg/dL 8.5-10.1 [facility] Work Phone: Serum or plasma creatinine m easurement (mass/volume)on 08-25-2020 Creatinine [Mass/Vol] 0.45 mg/dL 0.70-1.30 [facility] Work Phone: Comment on above: The validity of the calculated GFR & GFRAA in patients over 70 years has not been determined. Clinical correlation is essential. Serum or plasma urea nitroge n measurement (mass/volume)on 08-25-2020 Urea nitrogen [Mass/Vol] 11 mg/dL 7-18 [facility] Work Phone: Thin prep Papanicolaou smear with manual screeningon 08-25-2020 Thin prep Papanicolaou smear with manual screening 67 U/L 15-37 [facility] Work Phone: Thin prep Papanicolaou smear with manual screening 5 5-15 [facility] Work Phone: TSH (THYROID STIMULATING HOR NIK) ([id number])Ordered By: Client Hr Manager on 08-15-2020 TSH Qn 20.900 {uIU/mL} Abnormal 0.450-4.50 0 [facility]; [facility] Work Phone: Comment on above: Aug 10; PATIENT NOT FASTINGPERFORMED BY: SAGRARIO [employer] [id number] [facility] [id number] TSH (THYROID STIMULATING HOR NIK) ([id number])Ordered By: Client Hr Manager on 06-23-2020 TSH Qn 42.700 {uIU/mL} Abnormal 0.450-4.50 0 [facility] Work Phone: Comment on above: PATIENT NOT FASTINGP ERFORMED BY: SAGRARIO [employer] Typajr2803 [facility] [id number] Anti TPO Antibody ([id number])Ord ered By: Client Hr Manager on 05-16-2020 TPO Ab Qn 17 {IU/mL} Normal 0-34 [facility] Work Phone: Comment on above: PATIENT NOT FASTINGP ERFORMED BY: SAGRARIO LabUNIFi Software Aceuui0555 [facility] [id number] TPO Ab Qn 17 [IU]/mL Normal 0-34 [facility]; [facility] Internal Medicine Work Phone: Comment on above: PATIENT NOT FASTINGP ERFORMED BY: SAGRARIO LabUNIF[employer] Vmlivf0927 [facility] [id number] T3, FREE (TRIDOTHYRONINE) ([id number])Ordered By: Client Hr Manager on 05-16-2020 Free T3 [Mass/Vol] 2.6 pg/mL Normal 2.0-4.4 [facility] Internal [facility] Work Phone: Comment on above: to be done 6weeks ( end april); PATIENT NOT FASTINGPERFORMED BY: SAGRARIO LabUNIF[employer] Oeyatu1310 [facility] [id number] T4, FREE (THYROXINE) ([id number]) Ordered By: Client Hr Manager on 05-16-2020 Free T4 [Mass/Vol] 1.13 ng/dL Normal 0.82-1.77 [facility] Internal Medicine Work Phone: Comment on above: to be done 6weeks ( end april ); PATIENT NOT FASTINGPERFORMED BY: [facility] Evtmqj8393 Dick YecurisAtrium Health [facility] [id number] TSH ([id number])Ordered By: Brooke carpio Finished Carpet Inspector on 05-16-2020 TSH Qn 27.800 {uIU/mL} Abnormal 0.450-4.50 0 [facility] Work Phone: Comment on above: to be done 6 weeks ( end april); PATIENT NOT FASTINGPERFORMED BY: SAGRARIO [facility] Svdvxz2964 Dick Golfshop OnlineGood Hope Hospital [id number] Iron measurement (mass/mass) on 05-19-2019 Iron (Unsp spec) [Mass/Mass] 56 ug/dL 65-175 [facility] Work Phone: Laboratory - Chemistry and C hemistry - challengeon 05-19-2019 Cobalamin (Vitamin B12) [Mass/Vol] 697 pg/mL 211-911 [facility] Free T4 [Mass/Vol] 1.04 ng/dL 0.76-1.46 [facility] No Panel Informationon 05-19 Folate 23.40 ng/mL 3.1-55.4 [facility] Total Iron Binding Capacity 325 ug/dL 250-450 [facility] Work Phone: Serum or plasma ferritin davey surement (mass/volume)on 05-19-2019 Ferritin [Mass/Vol] 559 ng/mL 26-388 [facility] Work Phone: Serum or plasma iron saturat ion measurement (mass fraction)on 05-19-2019 Iron saturation [Mass fraction] 17.2 % 15.0-55.0 [facility] Work Phone: Basophil percentageon 2018 Basophil percentage 4.4 mg/dL 2.5-4.9 [facility] Work Phone: Laboratory - Chemistry and C hemistry - challengeon 04-28-2019 Magnesium [Mass/Vol] 1.8 mg/dL 1.6-2.6 [facility] Work Phone: Absolute reticulocyte counto n 04-13-2019 Reticulocytes (Bld) [#/Vol] 0.00 10*3/uL 0-5 [facility] Laboratory - Hematology and Cell countson 04-06-2019 Erythrocyte distribution width (RBC) [Ratio] 13.2 % 11.6-14.6 [facility] No Panel Informationon 04-06 Red Cell Distribution Width Diff 42.8 fl 35.1-43.9 [facility] Review by pathologiston 03-23 Pathologist review Allen (Unsp spec) [Interp] Reviewed [facility] Comment on above: Previous reported re sult: Camille srinivasan Edited by: KAREN on 04/07/19:1024Leukopenia and neutropenia.Normocytic anemia.Clinical correlation necessary.Laurent Cope M.D. 04/07/19 AMENDED REPORT 04/07/19 1024 PATH REV previously reported as: Camille srinivasan Total cell counton 9 Cells counted Molgen (Bld/Tiss) [#] Not Reportable [facility] Laboratory - Microbiology an d Antimicrobial susceptibilityon 04-05-2019 Bacteria identified Cx Nom (Bld) No growth in 5 days. [facility] Bacteria identified Cx Nom (Bld) No growth in 5 days. [facility] Laboratory - Microbiology an d Antimicrobial susceptibilityon 03-31-2019 Bacteria identified Cx Nom (Bld) No growth in 5 days. [facility] Work Phone: No Panel Informationon 03-30 Differential Comment COMMENT [facility] Comment on above: SLIDE SCANNED - LYMP HOPENIA. AMMONIA ([id number])on 01-02-2019 Ammonia mass conc (P) 20 ug/dL Abnormal 27-102 Com prehensive Internal Medicine Work Phone: Comment on above: PATIENT NOT FASTINGP ERFORMED BY: [facility] [id number] [facility] [id number] Metabolic Panel, Comprehensi ve ([id number])on 01-02-2019 Albumin mass conc 4.4 g/dL Normal 3.5-5.5 Compreh ensive Internal Medicine Work Phone: Comment on above: PATIENT NOT FASTINGP ERFORMED BY: CB [facility] Glutvp8467 Dick RoadDublin [place] [id number] Albumin/Globulin mass ratio 1.6 {ratio} Normal 1.2-2.2 [facility] Internal Medicine Work Phone: Comment on above: PATIENT NOT FASTINGP ERFORMED BY: CB [facility] Rsyojh0144 Dick RoadDublin [place] [id number] ALP enzyme act/vol 60 [iU]/L Normal 39-117 [facility] Internal Medicine Work Phone: Comment on above: PATIENT NOT FASTINGP ERFORMED BY: CB [facility] Wzuvid2239 Dick RoadDublin [place] [id number] ALT enzyme act/vol 21 [iU]/L Normal 0-44 [facility] Internal [facility] Work Phone: Comment on above: PATIENT NOT FASTINGP ERFORMED BY: CB [facility] Mfsfms7936 Dick RoadDublin [place] [id number] AST enzyme act/vol 21 [iU]/L Normal 0-40 [facility] Work Phone: Comment on above: PATIENT NOT FASTINGP ERFORMED BY: CB [facility] Csmgrw5138 Dick RoadDublin [place] [id number] Bilirubin mass conc 0.5 mg/dL Normal 0.0-1.2 [facility] Work Phone: Comment on above: PATIENT NOT FASTINGP ERFORMED BY: CB [facility] Yjjafw9438 Dick RoadDublin [place] [id number] Calcium mass conc 9.0 mg/dL Normal 8.7-10.2 [facility] Internal Medicine Work Phone: Comment on above: PATIENT NOT FASTINGP ERFORMED BY: CB [facility] Jrsbch6254 [address] RoadDublin [place] [id number] Chloride molar conc 92 mmol/L Abnormal 96-106 [facility] Work Phone: Comment on above: PATIENT NOT FASTINGP ERFORMED BY: CB [facility] Bqgugp5815 [address] RoadDublin [place] [id number] CO2 molar conc 22 mmol/L Normal 20-29 Comprehens sruthi Internal Medicine Work Phone: Comment on above: PATIENT NOT FASTINGP ERFORMED BY: SAGRARIO [facility] Husflu9811 Dick RoadDublin [place] [id number] Creatinine mass conc 0.56 mg/dL Abnormal 0.76-1.27 Comp rehensive Internal Medicine Work Phone: Comment on above: PATIENT NOT FASTINGP ERFORMED BY: CB [facility] Opsmkb7833 Dick RoadDublin [place] [id number] GFR/1.73 sq M predicted among blacks CKD-EPI vol rate/area (S/P/Bld) 134 mL/min/1.73 Normal Comprehe nsive Internal Medicine Work Phone: Comment on above: PATIENT NOT FASTINGP ERFORMED BY: SAGRARIO [facility] [id number] Dick RoadNovant Health Presbyterian Medical Centerin [place] [id number] GFR/1.73 sq M predicted among non-blacks CKD-EPI vol rate/area (S/P/Bld) 116 mL/min/1.73 Normal [facility] Work Phone: Comment on above: PATIENT NOT FASTINGP ERFORMED BY: SAGRARIO [facility] [id number] Dick Roadblin [place] [id number] Globulin mass conc (S) 2.8 g/dL Normal 1.5-4.5 Co mprehensive Internal Medicine Work Phone: Comment on above: PATIENT NOT FASTINGP ERFORMED BY: CB [facility] Obvtwq4426 Dick Health[facility]bl[facility] [place] [id number] Glucose mass conc 101 mg/dL Abnormal 65-99 Compreh ensive Internal Medicine Work Phone: Comment on above: PATIENT NOT FASTINGP ERFORMED BY: SAGRARIO [facility] [id number] Dick RoadDublin [place] [id number] Potassium molar conc 4.6 mmol/L Normal 3.5-5.2 Comp rehensive Internal Medicine Work Phone: Comment on above: PATIENT NOT FASTINGP ERFORMED BY: SAGRARIO [facility] Gvugar7974 Dick Roadblin [place] [id number] Protein mass conc 7.2 g/dL Normal 6.0-8.5 Compreh ensive Internal Medicine Work Phone: Comment on above: PATIENT NOT FASTINGP ERFORMED BY: SAGRARIO Lab[facility] [id number] Dick RoadDublin [place] [id number] Sodium molar conc 129 mmol/L Abnormal 134-144 Compreh ensive Internal Medicine Work Phone: Comment on above: PATIENT NOT FASTINGP ERFORMED BY: SAGRARIO [facility] Biruld5100 Dick RoadDublin [place] [id number] Urea nitrogen mass conc 6 mg/dL Normal 6-24 C omprehensive Internal Medicine Work Phone: Comment on above: PATIENT NOT FASTINGP ERFORMED BY: SAGRARIO Lab[facility] GomezMruyky8980 Dick RoadDublin [place] [id number] Urea nitrogen/Creatinine mass ratio 11 mg/mg Normal 9-20 [facility] Work Phone: Comment on above: PATIENT NOT FASTINGP ERFORMED BY: SAGRARIO Lab[facility] Rmblel6579 Dick RoadDublin [place] [id number] Metabolic Panel, Comprehensi ve (61456)Ordered By: Client Hr Manager on 01-02-2019 ALP [Catalytic activity/Vol] 60 U/L Normal 39-117 [facility]; [facility] Work Phone: Comment on above: PATIENT NOT FASTINGP ERFORMED BY: SAGRARIO [facility] Gpeqnu8259 Dick RoadDublin [place] [id number] ALT [Catalytic activity/Vol] 21 U/L Normal 0-44 [facility]; [facility] Work Phone: Comment on above: PATIENT NOT FASTINGP ERFORMED BY: SAGRARIO [facility] Lpoqdv2032 Dick RoadDublin [place] [id number] AST [Catalytic activity/Vol] 21 U/L Normal 0-40 [facility]; [facility] Work Phone: Comment on above: PATIENT NOT FASTINGP ERFORMED BY: SAGRARIO [facility] Wppqbw9666 Dick RoadDublin [place] [id number] VITAMIN B12 AND FOLATES (826 07)on 01-02-2019 Cobalamin (Vitamin B12) mass conc 348 pg/mL Normal 232-1245 [facility] Work Phone: Comment on above: PATIENT NOT FASTINGP ERFORMED BY: [facility] Ifzbhj2845 Dick [facility]ec[facility]At[facility] [id number] Folate mass conc 7.9 ng/mL Normal Comprehe nsive Internal Medicine Work Phone: Comment on above: A serum folate jan ntration of less than 3.1 ng/mL isconsidered to represent clinical deficiency. PATIENT NOT FASTINGP ERFORMED BY: [facility] Ilxdjy7287 Dick YecurisAt[facility] [id number] IMMUNOHISTOCHEMISTRYon 12-22 IMMUNOHISTOCHEMISTRY See Note Normal Comp rehensive Internal Medicine Work Phone: Comment on above: Patient: DEANNE JAMA : 1960 (58/M) Acct Num: [id number] Phys: Paige QUESADA,Shane Unit Num: [id number] Loc: LABSPEC Specimen: [id number] Received: 12/23/181136 Spec Type: IMMUNO TISSUES 1 TISSUES: A. Neck, NOS SPECIMEN INFORMATION: Tissue Source: A - Left neck mass fine needle aspiration Clinical Info: Left neck mass Specimen Number: [id number] CPT code: 90121, 60431 x11 METHODOLOGY: Deparaffinized sections of prefer/formalin-fixed tissue or PAP/DQ stained slides are incubated with monoclonal/polyclonal antibodies/oligonucleotide probes. Localization is made via biotin free immunoperoxidase method. Appropriate controls are performed and reacted as expected. Results on target cell population are indicated in the following table: RESULTS: ANTIBODY / CLONE RESULT Block A AE1-3 (AE1/AE3/PCK26) positive CK7 (OV-TL12/30) negative CK8 (41gcsqF51) positive, weak CK20 (KS20.8) negative TTF-1 (8G7G3/1) negative Napsin A (Rabbit Polyclonal) negative HepPar (OCh1E5) negative RCC (PN-15) negative PSAP (PASE/4LJ) negative CK5-6 (D5 AND 1684) positive P16 (E6H4) negative P40 (BC28) positive, focal These tests were developed and their performance characteristics determined by [facility]. They may not have been cleared or approved by the U.S. Food and Drug Administration. The FDA has determined that such clearance or approval is not necessary. INTERPRETATION: A. 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 SJ:evy 12/24/18 PHYSICIAN AND INSTITUTION [facility] [address] [place], [place] [address] Signed Laurent Cope MD 12/24/18 [facility] [address] [facility] [place], [place], [id number] Patient: DEANNE JAMA : 1960 (58/M) Acct Num: [id number] Phys: Paige QUESADA,Shane Unit Num: [id number] Loc: LABSPEC Specimen: [id number] Received: 12/22/18 - 1254 Spec Type: Fluid TISSUES 1 TISSUES: A. Neck, NOS B. Neck, NOS COMMENT A. Immunohistochemistry ([id number]) supports the above diagnosis. Case has been [...] Submitted for staining. / 12/22/18 TC:0 CPT: 02835, 65170, 96667 CYTOLOGY STUDY Slides are reviewed. DIAGNOSIS CYTOLOGY [...] Internal Medicine Work Phone: Comment on above: [facility] [address] [place], [address] Basophils/100 WBC (Bld) 0.4 % Normal 0-1 C omprehensive Internal Medicine Work Phone: Comment on above: [facility] [address] [place], [address] Eosinophils/100 WBC (Bld) 0.4 % Normal 0-5 [facility] Work Phone: Comment on above: [facility] [address] [place], [place], [phone] Erythrocyte distribution width Ratio (RBC) 13.9 % Normal 11.6-14.6 [facility] Work Phone: Comment on above: [facility] [address] [place], [address] Hematocrit Volume Fraction (Bld) 38.8 % Abnormal 40-54 [facility] Work Phone: Comment on above: [facility] [address] [place], [address] Hemoglobin mass conc (Bld) 13.7 g/dL Normal 13.0-16.5 [facility] Work Phone: Comment on above: [facility] [address] [place], [place], [phone] IM GRAN % 0.100 % Normal 0.0-0.9 [facility] Work Phone: Comment on above: IG% - Immature Granu locytes (promyelocytes, myelocytes andmetamyelocytes) > 1% indicates that a LEFT SHIFT is Present. [facility] [address] [place], [address] Lymphocytes #/vol (Bld) 2.18 {X10_3/ul} Normal 0.83-4. 51 [facility] Work Phone: Comment on above: [facility] [address] [place], [address] Lymphocytes/100 WBC (Bld) 25.9 % Normal 19-41 [facility] Work Phone: Comment on above: [facility] [address] [place], [address] MCH Entitic mass (RBC) 32.2 pg Abnormal 27.0-32.[address] [facility] Work Phone: Comment on above: [facility] [address] [place], [address] MCHC mass conc (RBC) 35.3 {g/gl} Normal 32-36 [facility] Work Phone: Comment on above: [facility] [address] [place], [address] MCV Entitic volume (RBC) 91.3 fL Normal 80-94 [facility] Work Phone: Comment on above: [facility] [address] [place], [address] Monocytes/100 WBC (Bld) 13.7 % Abnormal 0-10 C [facility] Work Phone: Comment on above: [facility] [address] [place], [address] Neutrophils/100 WBC (Bld) 59.5 % Normal 47-70 [facility] Work Phone: Comment on above: [facility] [address] [place], [phone] Platelet mean volume Entitic volume (Bld) 9.7 fL Normal 6.2-12.0 Comprehensi ve Internal Medicine Work Phone: Comment on above: [facility] [address] [place], [id number] Platelets #/vol (Bld) 337 10*3/uL Normal 150-450 Co mprehensive Internal Medicine Work Phone: Comment on above: [facility] [address] [place], [address] RBC #/vol (Bld) 4.25 {M/mm3} Abnormal 4.6-6.2 Compreh ensive Internal Medicine Work Phone: Comment on above: [facility] [address] [place], [place], [phone] RDW SD 45.5 fL Abnormal 35.1-43.9 [facility] Work Phone: Comment on above: [facility] [address] [place], [place], [phone] WBC #/vol (Bld) 8.4 10*3/uL Normal 4.4-11.0 Comprehe nsive Internal Medicine Work Phone: Comment on above: [facility] [address] [place], [place], [phone] Comprehensive Metabolic Prof [facility] 12-15-2018 Comprehensive metabolic 2000 panel 6 1 Normal 5-15 [facility] Work Phone: Comment on above: [facility] [address] [place], [phone] Comprehensive metabolic 2000 panel 102 mg/dL Normal 74-106 [facility] Work Phone: Comment on above: Fasting Glucose resu lt from 100 to 125 mg/dLsuggests IMPAIRED HOMEOSTASIS per A.D.A. criteria.Please note revised GLUCOSE reference range ufhehmuet77/02/2018. [facility] [address] [place], [place], [phone] Comprehensive metabolic 2000 panel 7 mg/dL Normal 7-18 [facility] Work Phone: Comment on above: [facility] [address] [place], [place], [phone] Comprehensive metabolic 2000 panel 0.57 mg/dL Abnormal 0.70-1.30 [facility] Work Phone: Comment on above: The validity of the calculated GFR AND GFRAA in patients over70 years has not been determined. Clinical correlation isessential. [facility] [address] [place], [place], [phone] Comprehensive metabolic 2000 panel 158 mL/min Normal [facility] Work Phone: Comment on above: Non- GFR Calc [facility] [address] [place], [place], [phone] Comprehensive metabolic 2000 panel 191 mL/min Normal [facility] Work Phone: Comment on above: GFR Calc [facility] [address] [place], [place], [phone] Comprehensive metabolic 2000 panel 12.3 {RATIO} Normal 10-20 [facility] Work Phone: Comment on above: [facility] [address] [place], [place], [phone] Comprehensive metabolic 2000 panel 7.2 g/dL Normal 6.4-8.2 [facility] Work Phone: Comment on above: [facility] [address] [place], [place], [phone] Comprehensive metabolic 2000 panel 3.8 g/dL Normal 3.2-5.0 [facility] Work Phone: Comment on above: [facility] [address] [place], [address] Comprehensive metabolic 2000 panel 3.4 g/dL Normal 2.2-4.2 [facility] Work Phone: Comment on above: [facility] [address] [place], [address] Comprehensive metabolic 2000 panel 1.1 {RATIO} Normal 0.9-2.4 [facility] Work Phone: Comment on above: [facility] [address] [place], [address] Comprehensive metabolic 2000 panel 8.5 mg/dL Normal 8.5-10.1 [facility] Work Phone: Comment on above: [facility] [address] [place], [place], [address] Comprehensive metabolic 2000 panel 25 U/L Normal 15-37 [facility] Work Phone: Comment on above: [facility] [address] [place], [address] Comprehensive metabolic 2000 panel 59 U/L Normal 45-117 [facility] Work Phone: Comment on above: [facility] [address] [place], [address] Comprehensive metabolic 2000 panel 31 U/L Normal 16-61 [facility] Work Phone: Comment on above: [facility] [address] [place], [address] Comprehensive metabolic 2000 panel 0.50 mg/dL Normal 0.20-1.00 [facility] Work Phone: Comment on above: [facility] [address] [place], [place], [phone] Comprehensive metabolic 2000 panel 132 mmol/L Abnormal 136-145 [facility] Work Phone: Comment on above: [facility] [address] [place], [place], [address] Comprehensive metabolic 2000 panel 4.1 mmol/L Normal 3.5-5.1 [facility] Work Phone: Comment on above: [facility] [address] [place], [place], [phone] Comprehensive metabolic 2000 panel 97 mmol/L Abnormal 98-107 [facility] Work Phone: Comment on above: [facility] [address] [place], [place], [phone] Comprehensive metabolic 2000 panel 29.0 mmol/L Normal 21.0-32.0 [facility] Work Phone: Comment on above: [facility] [address] [place], [place], [phone] Bacteria identified Anaer cx Nom (Unsp spec) Anaerobic Culture Anaerobic cocci [facility] Work Phone: Anaerobic microbial culture No anaerobic bacteria isolated. [facility] Work Phone: Bacteria identified Cx Nom ( Wound) Wound Culture Proteus vulgaris [facility] Work Phone: Wound Culture Pseudomonas aeroginosa [facility] Work Phone: Wound Culture Meth. resistant Stap h. aureus [facility] Work Phone: Wound Culture Positive [facility] Work Phone: Wound Culture Streptococcus agalactiae (B) [facility] Work Phone: Gram stain for investigation of transfusion reaction Microscopic observation Gram stain Nom (Unsp spec) [facility] Work Phone: Laboratory - Microbiology an d Antimicrobial susceptibility Bacteria identified Cx Nom (Bld) No growth in 5 days. [facility] Work Phone: Vital Signs Date Time Vital Sign Value Performing Clinician Facility 06-10-2025 09:59-0400 Body mass index (BMI) [Ratio] 18.4 kg/m2 Dayami Jha MD Work Phone: [facility] 06-10-2025 09:59-0400 Body weight 51.71 kg Dayami Jha MD Work Phone: [facility] 05-07-2025 10:44-0400 Body height 166 cm Roman Morales MD Work Phone: [facility] 05-07-2025 10:44-0400 Body height 166.37 cm Roman Morales MD Work Phone: [facility] 05-07-2025 10:44-0400 Body mass index (BMI) [Ratio] 19.57 kg/m2 Roman Morales MD Work Phone: [facility] 05-07-2025 10:44-0400 Body weight 54 kg Roman Morales MD Work Phone: [facility] 05-07-2025 10:44-0400 Body weight 53.98 kg Roman Morales MD Work Phone: [facility] 05-07-2025 10:44-0400 BP SITE #1 Roman Morales MD Work Phone: [facility] 05-07-2025 10:44-0400 BP SITE #2 Roman Morales MD Work Phone: [facility] 05-07-2025 10:44-0400 Diastolic blood pressure 71 mm[Hg] Roman Morales MD Work Phone: [facility] 05-07-2025 10:44-0400 Diastolic blood pressure 77 mm[Hg] Roman Morales MD Work Phone: [facility] 05-07-2025 10:44-0400 Heart rate 79 /min Roman Morales MD Work Phone: [facility] 05-07-2025 10:44-0400 HGHTCHNVIS Roman Morales MD Work Phone: [facility] 05-07-2025 10:44-0400 Systolic blood pressure 169 mm[Hg] Roman Morales MD Work Phone: [facility] 05-07-2025 10:44-0400 Systolic blood pressure 161 mm[Hg] Roman Morales MD Work Phone: [facility] 05-07-2025 10:44-0400 VITALSDONE Roman Morales MD Work Phone: [facility] 04-15-2025 09:12-0400 Body temperature 97.9 [degF] Sadie Santiago BMET-C Work Phone: [facility] 04-15-2025 09:12-0400 Diastolic blood pressure 64 mm[Hg] Sadie Santiago BMET-C Work Phone: [facility] 04-15-2025 09:12-0400 Heart rate 57 /min Sadei Santiago BMET-C Work Phone: [facility] 04-15-2025 09:12-0400 Respiratory rate 16 /min Sadie Santiago BMET-C Work Phone: [facility] 04-15-2025 09:12-0400 SaO2% (BldA) [Mass fraction] 98 % Sadie Santiago BMET-C Work Phone: [facility] 04-15-2025 09:12-0400 Systolic blood pressure 108 mm[Hg] Sadie Santiago BMET-C Work Phone: [facility] 04-15-2025 07:40-0400 Body height 165.1 cm Sadie Santiago BMET-C Work Phone: [facility] 04-15-2025 07:40-0400 Body mass index (BMI) [Ratio] 19.8 kg/m2 Sadie Santiago BMET-C Work Phone: [facility] 04-15-2025 07:40-0400 Body weight 54 kg Sadie Jack BMET-C Work Phone: [facility] 03-01-2025 08:43-0400 Body height 167.6 cm Rachel Brooks MD Work Phone: [facility] 03-01-2025 08:43-0400 Body mass index (BMI) [Ratio] 18.72 kg/m2 Rahcel Brooks MD Work Phone: [facility] 03-01-2025 08:43-0400 Body weight 52.62 kg Rachel Brooks MD Work Phone: [facility] 02-02-2025 10:41-0400 Body height 165.1 cm Sadie Jack BMET-C Work Phone: [facility] 02-02-2025 10:41-0400 Body weight 54.65 kg Sadie Jack BMET-C Work Phone: [facility] 02-02-2025 09:30-0400 Body height 165.1 cm Sadie Jack BMET-C Work Phone: [facility] 02-02-2025 09:30-0400 Body mass index (BMI) [Ratio] 20 kg/m2 Sadie Jack BMET-C Work Phone: [facility] 02-02-2025 09:30-0400 Body temperature 98.4 [degF] Sadie Wolffam BMET-C Work Phone: [facility] 02-02-2025 09:30-0400 Body weight 54.65 kg Sadie Jack BMET-C Work Phone: [facility] 02-02-2025 09:30-0400 Diastolic blood pressure 80 mm[Hg] Sadie Wolffam BMET-C Work Phone: [facility] 02-02-2025 09:30-0400 Heart rate 70 /min Sadie Wolffam BMET-C Work Phone: [facility] 02-02-2025 09:30-0400 Respiratory rate 18 /min Sadie Jack BMET-C Work Phone: [facility] 02-02-2025 09:30-0400 SaO2% (BldA) [Mass fraction] 100 % Sadie Jack BMET-C Work Phone: [facility] 02-02-2025 09:30-0400 Systolic blood pressure 148 mm[Hg] Sadie Jack BMET-C Work Phone: [facility] 01-05-2025 11:22-0400 Body weight 55.5 kg Sadie Jack BMET-C Work Phone: [facility] 01-05-2025 11:08-0400 Body mass index (BMI) [Ratio] 20.1 kg/m2 Sadie Jack BMET-C Work Phone: [facility] 01-05-2025 11:08-0400 Body temperature 99.7 [degF] Sadie Jack BMET-C Work Phone: [facility] 01-05-2025 11:08-0400 Body weight 54.88 kg Sadie Jack BMET-C Work Phone: [facility] 01-05-2025 11:08-0400 Diastolic blood pressure 71 mm[Hg] Sadie Jack BMET-C Work Phone: [facility] 01-05-2025 11:08-0400 Heart rate 91 /min Sadie Jack BMET-C Work Phone: [facility] 01-05-2025 11:08-0400 Respiratory rate 16 /min Sadie Jack BMET-C Work Phone: [facility] 01-05-2025 11:08-0400 SaO2% (BldA) [Mass fraction] 97 % Sadie Jack BMET-C Work Phone: [facility] 01-05-2025 11:08-0400 Systolic blood pressure 123 mm[Hg] Sadie Jack BMET-C Work Phone: [facility] 10-21-2024 07:50-0500 Body temperature 97.1 [degF] Dr. Quincy Simpson MD Work Phone: [facility] 10-21-2024 07:50-0500 Diastolic blood pressure 62 mm[Hg] Dr. Quincy Simpson MD Work Phone: [facility] 10-21-2024 07:50-0500 Heart rate 58 /min Dr. Quincy Simpson MD Work Phone: [facility] 10-21-2024 07:50-0500 Respiratory rate 16 /min Dr. Quincy Simpson MD Work Phone: [facility] 10-21-2024 07:50-0500 SaO2% (BldA) [Mass fraction] 98 % Dr. Quincy Simpson MD Work Phone: [facility] 10-21-2024 07:50-0500 Systolic blood pressure 118 mm[Hg] Dr. Quincy Simpson MD Work Phone: [facility] 10-21-2024 05:51-0500 Body height 165.[address] Quincy Simpson MD Work Phone: [facility] 10-21-2024 05:51-0500 Body mass index (BMI) [Ratio] 19.8 kg/m2 Dr. Quincy Simpson MD Work Phone: [facility] 10-21-2024 05:51-0500 Body weight [address] Quincy Simpson MD Work Phone: [facility] 09-28-2024 12:06-0500 Body mass index (BMI) [Ratio] 19.8 kg/m2 Dr. Quincy Simpson MD Work Phone: [facility] 09-28-2024 12:06-0500 Body temperature 98.9 [degF] Dr. Quincy Simpson MD Work Phone: [facility] 09-28-2024 12:06-0500 Body weight 55.[address] Quincy Simpson MD Work Phone: [facility] 09-28-2024 12:06-0500 Diastolic blood pressure 72 mm[Hg] Dr. Quincy Simpson MD Work Phone: [facility] 09-28-2024 12:06-0500 Heart rate 85 /min Dr. Quincy Simpson MD Work Phone: [phone])[phone] [address] 09-28-2024 12:06-0500 Respiratory rate 16 /min Dr. Quincy Simpson MD Work Phone: 1(870)430-817843 [address] 09-28-2024 12:06-0500 SaO2% (BldA) [Mass fraction] 98 % Dr. Quincy Simpson MD Work Phone: [facility] 09-28-2024 12:06-0500 Systolic blood pressure 124 mm[Hg] Dr. Quincy Simpson MD Work Phone: [facility] 09-15-2024 10:15-0500 Diastolic blood pressure 58 mm[Hg] Dr. Quincy Simpson MD Work Phone: [facility] 09-15-2024 10:15-0500 Heart rate 68 /min Dr. Quincy Simpson MD Work Phone: [facility] 09-15-2024 10:15-0500 Respiratory rate 23 /min Dr. Quincy Simpson MD Work Phone: [facility] 09-15-2024 10:15-0500 Systolic blood pressure 124 mm[Hg] Dr. Quincy Simpson MD Work Phone: [facility] 09-15-2024 09:24-0500 Body mass index (BMI) [Ratio] 19.8 kg/m2 Dr. Quincy Simpson MD Work Phone: [facility] 09-15-2024 09:24-0500 Body temperature 98.5 [degF] Dr. Quincy Simpson MD Work Phone: [facility] 09-15-2024 09:24-0500 Body weight 56.[address] Quincy Simpson MD Work Phone: [facility] 09-15-2024 09:24-0500 SaO2% (BldA) [Mass fraction] 97 % Dr. Quincy Simpson MD Work Phone: [facility] 09-07-2024 14:03-0500 Body weight 55.[address] Quincy Simpson MD Work Phone: [facility] 09-07-2024 13:44-0500 Body mass index (BMI) [Ratio] 20.3 kg/m2 Dr. Quincy Simpson MD Work Phone: [facility] 09-07-2024 13:44-0500 Body temperature 97.5 [degF] Dr. Quincy Simpson MD Work Phone: [facility] 09-07-2024 13:44-0500 Body weight 55.[address] Quincy Simpson MD Work Phone: [facility] 09-07-2024 13:44-0500 Diastolic blood pressure 74 mm[Hg] Dr. Quincy Simpson MD Work Phone: [facility] 09-07-2024 13:44-0500 Heart rate 78 /min Dr. Quincy Simpson MD Work Phone: [facility] 09-07-2024 13:44-0500 Respiratory rate 16 /min Dr. Quincy Simpson MD Work Phone: [facility] 09-07-2024 13:44-0500 SaO2% (BldA) [Mass fraction] 97 % Dr. Quincy Simpson MD Work Phone: [facility] 09-07-2024 13:44-0500 Systolic blood pressure 146 mm[Hg] Dr. Quincy Simpson MD Work Phone: [facility] 08-31-2024 09:04-0500 Body mass index (BMI) [Ratio] 20.27 kg/m2 Rachel Brooks MD Work Phone: [facility] 08-31-2024 09:04-0500 Body weight 56.97 kg Rachel Brooks MD Work Phone: [facility] 08-31-2024 09:04-0500 Diastolic blood pressure 75 mm[Hg] Rachel Brooks MD Work Phone: [facility] 08-31-2024 09:04-0500 Heart rate 86 /min Rachel Brooks MD Work Phone: [facility] 08-31-2024 09:04-0500 Systolic blood pressure 151 mm[Hg] Rachel Brooks MD Work Phone: [facility] 04-13-2024 13:33-0400 Body height 167.6 cm Rachel Brooks MD Work Phone: [facility] 04-13-2024 13:33-0400 Body mass index (BMI) [Ratio] 20.98 kg/m2 Rachel Brooks MD Work Phone: [facility] 04-13-2024 13:33-0400 Body weight 58.97 kg Rachel Brooks MD Work Phone: [facility] 09-03-2023 14:50-0500 Body temperature 97.3 [degF] BMET-C Kamryn Riveroesa BMET Work Phone: [facility] 09-03-2023 14:50-0500 Diastolic blood pressure 66 mm[Hg] BMET-C Kamryn Ciesa BMET Work Phone: [facility] 09-03-2023 14:50-0500 Heart rate 57 /min BMET-C Kamryn Ciesa BMET Work Phone: [facility] 09-03-2023 14:50-0500 Respiratory rate 16 /min BMET-C Kamryn Ciesa BMET Work Phone: [facility] 09-03-2023 14:50-0500 SaO2% (BldA) [Mass fraction] 100 % BMET-C Kamryn Posadasa BMET Work Phone: [facility] 09-03-2023 14:50-0500 Systolic blood pressure 105 mm[Hg] BMET-C Kamryn Posadasa BMET Work Phone: [facility] 09-03-2023 13:18-0500 Body height 165.1 cm BMET-C Kamryn Posadasa BMET Work Phone: [facility] 09-03-2023 13:18-0500 Body mass index (BMI) [Ratio] 20.9 kg/m2 BMET-C Kamryn Posadasa BMET Work Phone: [facility] 09-03-2023 13:18-0500 Body weight 57.1 kg BMET-C Kamryn Posadasa BMET Work Phone: [facility] 09-02-2023 13:55-0500 Body height 167.6 cm Rachel Brooks MD Work Phone: [facility] 09-02-2023 13:55-0500 Body mass index (BMI) [Ratio] 20.14 kg/m2 Rachel Brooks MD Work Phone: [facility] 09-02-2023 13:55-0500 Body weight 56.61 kg Rachel Brooks MD Work Phone: [facility] 08-05-2023 09:05-0500 Body mass index (BMI) [Ratio] 21.9 kg/m2 BMET-C Kamryn Posadasa BMET Work Phone: [facility] 08-05-2023 09:05-0500 Body temperature 98.6 [degF] BMET-C Kamryn Posadasa BMET Work Phone: [facility] 08-05-2023 09:05-0500 Body weight 57.86 kg BMET-C Kamyrn Posadasa BMET Work Phone: [facility] 08-05-2023 09:05-0500 Diastolic blood pressure 75 mm[Hg] BMET-C Kamryn Posadasa BMET Work Phone: [facility] 08-05-2023 09:05-0500 Heart rate 74 /min BMET-C Kamryn Gonzalez BMET Work Phone: [facility] 08-05-2023 09:05-0500 Respiratory rate 18 /min BMET-C Kamryn Posadasa BMET Work Phone: [facility] 08-05-2023 09:05-0500 SaO2% (BldA) [Mass fraction] 100 % BMET-C Kamryn Posadasa BMET Work Phone: [facility] 08-05-2023 09:05-0500 Systolic blood pressure 138 mm[Hg] BMET-C Kamryn Gonzalez BMET Work Phone: [facility] 07-22-2023 07:57-0400 Body height 170.18 cm Koki [...] area Derived from formula 1.68 m2 Koki Mrogan MA [facility]; [facility] [...] Phone: 05-22-2023 11:03-0400 Body height 162.56 cm BMET-C Kamryn Ciesa BMET Work Phone: [facility] 05-22-2023 11:03-0400 Body mass index (BMI) [Ratio] 21.8 kg/m2 BMET-C Kamryn Ciesa BMET Work Phone: [facility] 05-22-2023 11:03-0400 Body temperature 99.4 [degF] BMET-C Kamryn Ciesa BMET Work Phone: [facility] 05-22-2023 11:03-0400 Body weight 57.66 kg BMET-C Kamryn Ciesa BMET Work Phone: [facility] 05-22-2023 11:03-0400 Diastolic blood pressure 73 mm[Hg] BMET-C Kamryn Ciesa BMET Work Phone: [facility] 05-22-2023 11:03-0400 Heart rate 79 /min BMET-C Kamryn Ciesa BMET Work Phone: [facility] 05-22-2023 11:03-0400 Respiratory rate 18 /min BMET-C Kamryn Posadasa BMET Work Phone: [facility] 05-22-2023 11:03-0400 SaO2% (BldA) [Mass fraction] 100 % BMET-C Kamryn Posadasa BMET Work Phone: [facility] 05-22-2023 11:03-0400 Systolic blood pressure 144 mm[Hg] BMET-C Kamryn Posadasa BMET Work Phone: [facility] 04-10-2023 08:36-0400 Body mass index (BMI) [Ratio] 22.3 kg/m2 BMET-C Kamryn Posadasa BMET Work Phone: [facility] 04-10-2023 08:36-0400 Diastolic blood pressure 62 mm[Hg] BMET-C Kamryn Posadasa BMET Work Phone: [facility] 04-10-2023 08:36-0400 Heart rate 79 /min BMET-C Kamryn Posadasa BMET Work Phone: [facility] 04-10-2023 08:36-0400 Respiratory rate 16 /min BMET-C Kamryn Posadasa BMET Work Phone: [facility] 04-10-2023 08:36-0400 Systolic blood pressure 132 mm[Hg] BMET-C Kamryn Posadasa BMET Work Phone: [facility] 04-03-2023 08:38-0400 Body temperature 97.9 [degF] BMET-C Kamryn Posadasa BMET Work Phone: [facility] 03-23-2023 00:56-0400 Body weight 58.96 kg BMET-C Kamryn Posadasa BMET Work Phone: [facility] 03-20-2023 09:07-0400 Body mass index (BMI) [Ratio] 22.3 kg/m2 BMET-C Kamryn Posadasa BMET Work Phone: [facility] 03-20-2023 09:07-0400 Diastolic blood pressure 62 mm[Hg] BMET-C Kamryn Gonzalez BMET Work Phone: [facility] 03-20-2023 09:07-0400 Heart rate 62 /min BMET-C Kamryn Gonzalez BMET Work Phone: [facility] 03-20-2023 09:07-0400 Respiratory rate 16 /min BMET-C Kamryn Gonzalez BMET Work Phone: [facility] 03-20-2023 09:07-0400 Systolic blood pressure 113 mm[Hg] BMET-C Kamryn Gonzalez BMET Work Phone: [facility] 03-13-2023 09:28-0400 Body temperature 97.7 [degF] BMET-C Kamryn Gonzalez BMET Work Phone: [facility] 03-06-2023 08:52-0400 Body height 166.37 cm Kamryn Gonzalez Work Phone: UJ-Gdpheuklhybrui-Ta [place] Work Phone: 03-06-2023 08:52-0400 Body mass index (BMI) [Ratio] 20.48 kg/m2 Kamryn Gonzalez Work Phone: JM-Ogmqigyaajrpbq-Ap [place] Work Phone: 03-06-2023 08:52-0400 Body surface area Derived from formula 1.63 m2 Kamryn Gonzalez Work Phone: OP-Ejfyrdkztfqmwu-Ve [place] Work Phone: 03-06-2023 08:52-0400 Body temperature 97.4 [degF] Kamryn Gonzalez Work Phone: QS-Ktlqwslzibqhrk-Jp [place] Work Phone: 03-06-2023 08:52-0400 Body weight 56.7 kg Kamryn Gonzalez Work Phone: LF-Udjmnipalynwoy-Fy [place] Work Phone: 03-06-2023 08:52-0400 Diastolic blood pressure 79 mm[Hg] Kamryn Gonzalez Work Phone: IA-Ttceuosshhxuaz-Xe [place] Work Phone: 03-06-2023 08:52-0400 Heart rate 76 /min Kamryn Gonzalez Work Phone: AB-Nyddhgafdeedrj-Ll [place] Work Phone: 03-06-2023 08:52-0400 Systolic blood pressure 132 mm[Hg] Kamryn Gonzalez Work Phone: NI-Tnzecwhjqlzhjt-Qm [place] Work Phone: 02-25-2023 13:12-0400 Body mass index (BMI) [Ratio] 20.52 kg/m2 Kamryn Gonzalez Work Phone: HS-Xitlvbdocslubd-Ps [place] Work Phone: 02-25-2023 13:12-0400 Body surface area Derived from formula 1.63 m2 Kamryn Gonzalez Work Phone: WN-Azesymfsysgany-Bb [place] Work Phone: 02-25-2023 13:12-0400 Body weight 56.79 kg Kamryn Gonzalez Work Phone: XN-Rfxanmpbkpgque-Fi [place] Work Phone: 02-21-2023 00:25-0400 Body weight 58.96 kg BMET-C Kamryn Gonzalez BMET Work Phone: [facility] 02-20-2023 08:46-0400 Body mass index (BMI) [Ratio] 22.3 kg/m2 BMET-C Kamryn Posadasa BMET Work Phone: [facility] 02-20-2023 08:46-0400 Body temperature 97.5 [degF] BMET-C Kamryn Posadasa BMET Work Phone: [facility] 02-20-2023 08:46-0400 Diastolic blood pressure 60 mm[Hg] BMET-C Kamryn Riveroesa BMET Work Phone: [facility] 02-20-2023 08:46-0400 Heart rate 74 /min BMET-C Kamryn Ciesa BMET Work Phone: [facility] 02-20-2023 08:46-0400 Respiratory rate 18 /min BMET-C Kamryn Ciesa BMET Work Phone: [facility] 02-20-2023 08:46-0400 Systolic blood pressure 126 mm[Hg] BMET-C Kamryn Ciesa BMET Work Phone: [facility] 01-31-2023 10:04-0400 Body height 162.56 cm BMET-C Kamryn Josefaesa BMET Work Phone: [facility] 01-31-2023 10:00-0400 Body mass index (BMI) [Ratio] 21.5 kg/m2 BMET-C Kamryn Riveroesa BMET Work Phone: [facility] 01-31-2023 10:00-0400 Body temperature 96.8 [degF] BMET-C Kamryn Riveroesa BMET Work Phone: [facility] 01-31-2023 10:00-0400 Body weight 56.86 kg BMET-C Kamryn Riveroesa BMET Work Phone: [facility] 01-31-2023 10:00-0400 Diastolic blood pressure 80 mm[Hg] BMET-C Kamryn Ciesa BMET Work Phone: [facility] 01-31-2023 10:00-0400 Heart rate 81 /min BMET-C Kamryn Ciesa BMET Work Phone: [facility] 01-31-2023 10:00-0400 Respiratory rate 16 /min BMET-C Kamryn Ciesa BMET Work Phone: [facility] 01-31-2023 10:00-0400 Systolic blood pressure 121 mm[Hg] BMET-C Kamryn Ciesa BMET Work Phone: [facility] 01-30-2023 08:27-0400 Body mass index (BMI) [Ratio] 22.3 kg/m2 BMET-C Kamryn Gonzalez BMET Work Phone: [facility] 01-30-2023 08:27-0400 Body temperature 99 [degF] BMET-C Kamryn Gonzalez BMET Work Phone: [facility] 01-30-2023 08:27-0400 Diastolic blood pressure 62 mm[Hg] BMET-C Kamryn Gonzalez BMET Work Phone: [facility] 01-30-2023 08:27-0400 Heart rate 72 /min BMET-C Kamryn Gonzalez BMET Work Phone: [facility] 01-30-2023 08:27-0400 Respiratory rate 18 /min BMET-C Kamryn Gonzalez BMET Work Phone: [facility] 01-30-2023 08:27-0400 Systolic blood pressure 115 mm[Hg] BMET-C Kamryn Gonzalez BMET Work Phone: [facility] 01-28-2023 16:16-0400 Body height 166.37 cm Kamryn Gonzalez Work Phone: KJ-Onptgtglvtmztg-Px [place] [address] Work Phone: 01-28-2023 16:16-0400 Body mass index (BMI) [Ratio] 20.32 kg/m2 Kamryn Gonzalez Work Phone: MI-Sbwwxfyqzqahxl-Ko [place] [address] Work Phone: 01-28-2023 16:16-0400 Body surface area Derived from formula 1.62 m2 Kamryn Gonzalez Work Phone: SX-Cftmdcaiitntec-Fu [place] [address] Work Phone: 01-28-2023 16:16-0400 Body weight 56.25 kg Kamryn Gonzalez Work Phone: VO-Sdfkehuoqlojri-Ra [place] [address] Work Phone: 01-21-2023 00:26-0400 Body weight 58.96 kg BMET-C Kamryn Posadasa BMET Work Phone: [facility] 01-16-2023 08:32-0400 Body mass index (BMI) [Ratio] 22.3 kg/m2 BMET-C Kamryn Posadasa BMET Work Phone: [facility] 01-16-2023 08:32-0400 Body temperature 97 [degF] BMET-C Kamryn Posadasa BMET Work Phone: [facility] 01-16-2023 08:32-0400 Diastolic blood pressure 55 mm[Hg] BMET-C Kamryn Posadasa BMET Work Phone: [facility] 01-16-2023 08:32-0400 Heart rate 73 /min BMET-C Kamryn Posadasa BMET Work Phone: [facility] 01-16-2023 08:32-0400 Respiratory rate 18 /min BMET-C Kamryn Posadasa BMET Work Phone: [facility] 01-16-2023 08:32-0400 Systolic blood pressure 117 mm[Hg] BMET-C Kamryn Posadasa BMET Work Phone: [facility] 01-16-2023 07:51-0400 Body height 170.18 cm Koki [...] Phone: 12-22-2022 01:22-0400 Body weight 58.96 kg BMET-C Kamryn Josefamegana BMET Work Phone: [facility] 12-12-2022 08:52-0400 Body mass index (BMI) [Ratio] 22.3 kg/m2 BMET-C Kamryn Ciesa BMET Work Phone: [facility] 12-12-2022 08:52-0400 Body temperature 96.9 [degF] BMET-C Kamryn Ciesa BMET Work Phone: [facility] 12-12-2022 08:52-0400 Diastolic blood pressure 66 mm[Hg] BMET-C Kamryn Ciesa BMET Work Phone: [facility] 12-12-2022 08:52-0400 Heart rate 77 /min BMET-C Kamryn Ciesa BMET Work Phone: [facility] 12-12-2022 08:52-0400 Systolic blood pressure 113 mm[Hg] BMET-C Kamryn Ciesa BMET Work Phone: [facility] 11-28-2022 08:23-0500 Respiratory rate 18 /min BMET-C Kamryn Ciesa BMET Work Phone: [facility] 11-21-2022 13:10-0500 Body height 162.56 cm BMET-C Kamryn Posadasa BMET Work Phone: [facility] 11-21-2022 13:09-0500 Body mass index (BMI) [Ratio] 21.5 kg/m2 BMET-C Kamryn Posadasa BMET Work Phone: [facility] 11-21-2022 13:09-0500 Body temperature 98.4 [degF] BMET-C Kamryn Posadasa BMET Work Phone: [facility] 11-21-2022 13:09-0500 Body weight 56.86 kg BMET-C Kamryn Posadasa BMET Work Phone: [facility] 11-21-2022 13:09-0500 Diastolic blood pressure 76 mm[Hg] BMET-C Kamryn Posadasa BMET Work Phone: [facility] 11-21-2022 13:09-0500 Heart rate 78 /min BMET-C Kamryn Posadasa BMET Work Phone: [facility] 11-21-2022 13:09-0500 Respiratory rate 18 /min BMET-C Kamryn Posadasa BMET Work Phone: [facility] 11-21-2022 13:09-0500 SaO2% (BldA) [Mass fraction] 100 % BMET-C Kamryn Posadasa BMET Work Phone: [facility] 11-21-2022 13:09-0500 Systolic blood pressure 129 mm[Hg] BMET-C Kamryn Posadasa BMET Work Phone: [facility] 11-21-2022 00:17-0500 Body weight 58.96 kg BMET-C Kamryn Posadasa BMET Work Phone: [facility] 11-14-2022 08:59-0500 Body mass index (BMI) [Ratio] 22.3 kg/m2 BMET-C Kamryn Posadasa BMET Work Phone: [facility] 11-14-2022 08:59-0500 Body temperature 97.6 [degF] BMET-C Kamryn Posadasa BMET Work Phone: [facility] 11-14-2022 08:59-0500 Diastolic blood pressure 53 mm[Hg] BMET-C Kamryn Riveroesa BMET Work Phone: [facility] 11-14-2022 08:59-0500 Heart rate 75 /min BMET-C Kamryn Riveroesa BMET Work Phone: [facility] 11-14-2022 08:59-0500 Systolic blood pressure 113 mm[Hg] BMET-C Kamryn Riveroesa BMET Work Phone: [facility] 11-05-2022 08:05-0500 Body height 162.56 cm BMET-C Kamryn Riveroesa BMET Work Phone: [facility] 11-05-2022 08:05-0500 Body weight 57.6 kg BMET-C Kamryn Riveroesa BMET Work Phone: [facility] 11-01-2022 09:33-0500 Body mass index (BMI) [Ratio] 21.8 kg/m2 BMET-C Kamryn Posadasa BMET Work Phone: [facility] 11-01-2022 09:33-0500 Body temperature 97.3 [degF] BMET-C Kamryn Posadasa BMET Work Phone: [facility] 11-01-2022 09:33-0500 Body weight 57.6 kg BMET-C Kamryn Posadasa BMET Work Phone: [facility] 11-01-2022 09:33-0500 Diastolic blood pressure 57 mm[Hg] BMET-C Kamryn Riveroesa BMET Work Phone: [facility] 11-01-2022 09:33-0500 Heart rate 91 /min BMET-C Kamryn Ciesa BMET Work Phone: [facility] 11-01-2022 09:33-0500 Respiratory rate 18 /min BMET-C Kamryn Riveroesa BMET Work Phone: [facility] 11-01-2022 09:33-0500 SaO2% (BldA) [Mass fraction] 94 % BMET-C Kamryn Posadasa BMET Work Phone: [facility] 11-01-2022 09:33-0500 Systolic blood pressure 117 mm[Hg] BMET-C Kamryn Ciesa BMET Work Phone: [facility] 10-24-2022 00:23-0500 Body weight 58.96 kg BMET-C Kamryn Posadasa BMET Work Phone: [facility] 10-24-2022 00:23-0500 Respiratory rate 16 /min BMET-C Kamryn Ciesa BMET Work Phone: [facility] 10-10-2022 08:29-0500 Body mass index (BMI) [Ratio] 22.3 kg/m2 BMET-C Kamryn Ciesa BMET Work Phone: [facility] 10-10-2022 08:29-0500 Body temperature 97.4 [degF] BMET-C Kamryn Riveroesa BMET Work Phone: [facility] 10-10-2022 08:29-0500 Diastolic blood pressure 59 mm[Hg] BMET-C Kamryn Riveroesa BMET Work Phone: [facility] 10-10-2022 08:29-0500 Heart rate 69 /min BMET-C Kamryn Riveroesa BMET Work Phone: [facility] 10-10-2022 08:29-0500 Respiratory rate 16 /min BMET-C Kamryn Ciesa BMET Work Phone: [facility] 10-10-2022 08:29-0500 Systolic blood pressure 121 mm[Hg] BMET-C Kamryn Ciesa BMET Work Phone: [facility] 09-23-2022 00:13-0500 Body weight 58.96 kg BMET-C Kamryn Ciesa BMET Work Phone: [facility] 09-19-2022 08:29-0500 Body mass index (BMI) [Ratio] 22.3 kg/m2 BMET-C Kamryn Ciesa BMET Work Phone: [facility] 09-19-2022 08:29-0500 Body temperature 97.2 [degF] BMET-C Kamryn Ciesa BMET Work Phone: [facility] 09-19-2022 08:29-0500 Diastolic blood pressure 63 mm[Hg] BMET-C Kamryn Ciesa BMET Work Phone: [facility] 09-19-2022 08:29-0500 Heart rate 69 /min BMET-C Kamryn Ciesa BMET Work Phone: [facility] 09-19-2022 08:29-0500 Systolic blood pressure 116 mm[Hg] BMET-C Kamryn Ciesa BMET Work Phone: [facility] 09-12-2022 08:25-0500 Respiratory rate 16 /min BMET-C Kamryn Ciesa BMET Work Phone: [facility] 08-23-2022 00:14-0500 Body weight 58.96 kg BMET-C Kamryn Riveroesa BMET Work Phone: [facility] 08-22-2022 08:29-0500 Body mass index (BMI) [Ratio] 22.3 kg/m2 BMET-C Kamryn Ciesa BMET Work Phone: [facility] 08-22-2022 08:29-0500 Body temperature 98.2 [degF] BMET-C Kamryn Ciesa BMET Work Phone: [facility] 08-22-2022 08:29-0500 Diastolic blood pressure 58 mm[Hg] BMET-C Kamryn Ciesa BMET Work Phone: [facility] 08-22-2022 08:29-0500 Heart rate 75 /min BMET-C Kamryn Ciesa BMET Work Phone: [facility] 08-22-2022 08:29-0500 Respiratory rate 16 /min BMET-C Kamryn Ciesa BMET Work Phone: [facility] 08-22-2022 08:29-0500 Systolic blood pressure 117 mm[Hg] BMET-C Kamryn Posadasa BMET Work Phone: [facility] 07-31-2022 09:11-0500 Body height 162.56 cm BMET-C Kamryn Posadasa BMET Work Phone: [facility] 07-31-2022 09:10-0500 Body mass index (BMI) [Ratio] 22.1 kg/m2 BMET-C Kamryn Posadasa BMET Work Phone: [facility] 07-31-2022 09:10-0500 Body temperature 97.9 [degF] BMET-C Kamryn Posadasa BMET Work Phone: [facility] 07-31-2022 09:10-0500 Body weight 58.62 kg BMET-C Kamryn Posadasa BMET Work Phone: [facility] 07-31-2022 09:10-0500 Diastolic blood pressure 65 mm[Hg] BMET-C Kamryn Posadasa BMET Work Phone: [facility] 07-31-2022 09:10-0500 Heart rate 88 /min BMET-C Kamryn Posadasa BMET Work Phone: [facility] 07-31-2022 09:10-0500 Respiratory rate 16 /min BMET-C Kamryn Posadasa BMET Work Phone: [facility] 07-31-2022 09:10-0500 SaO2% (BldA) [Mass fraction] 98 % BMET-C Kamryn Posadasa BMET Work Phone: [facility] 07-31-2022 09:10-0500 Systolic blood pressure 113 mm[Hg] BMET-C Kamryn Posadasa BMET Work Phone: [facility] 07-24-2022 00:14-0400 Body weight 58.96 kg BMET-C Kamryn Posadasa BMET Work Phone: [facility] 07-18-2022 08:31-0400 Body mass index (BMI) [Ratio] 22.3 kg/m2 BMET-C Kamryn Posadasa BMET Work Phone: [facility] 07-18-2022 08:31-0400 Body temperature 96.9 [degF] BMET-C Kamryn Posadasa BMET Work Phone: [facility] 07-18-2022 08:31-0400 Diastolic blood pressure 57 mm[Hg] BMET-C Kamryn Posadasa BMET Work Phone: [facility] 07-18-2022 08:31-0400 Heart rate 81 /min BMET-C Kamryn Posadasa BMET Work Phone: [facility] 07-18-2022 08:31-0400 Systolic blood pressure 133 mm[Hg] BMET-C Kamryn Posadasa BMET Work Phone: [facility] 07-04-2022 08:19-0400 Respiratory rate 18 /min BMET-C Kamryn Posadasa BMET Work Phone: [facility] 06-23-2022 00:29-0400 Body weight 58.96 kg BMET-C Kamryn Posadasa BMET Work Phone: [facility] 06-20-2022 08:43-0400 Body mass index (BMI) [Ratio] 22.3 kg/m2 BMET-C Kamryn Posadasa BMET Work Phone: [facility] Work Phone: 06-20-2022 08:43-0400 Body temperature 97.2 [degF] BMET-C Kamryn Posadasa BMET Work Phone: [facility] Work Phone: 06-20-2022 08:43-0400 Diastolic blood pressure 63 mm[Hg] BMET-C Kamryn Posadasa BMET Work Phone: [facility] Work Phone: 06-20-2022 08:43-0400 Heart rate 63 /min BMET-C Kamryn Posadasa BMET Work Phone: [facility] Work Phone: 06-20-2022 08:43-0400 Systolic blood pressure 124 mm[Hg] BMET-C Kamryn Gonzalez BMET Work Phone: [facility] Work Phone: 06-18-2022 08:48-0400 Body mass index (BMI) [Ratio] 21.39 kg/m2 Kamryn Gonzalez Work Phone: NZ-Vrgmifxcyhmjiv-Yb [place] Work Phone: 06-18-2022 08:48-0400 Body surface area Derived from formula 1.66 m2 Kamryn Gonzalez Work Phone: FY-Nzeoowqlvwwbze-Vu [place] Work Phone: 06-18-2022 08:48-0400 Body weight 59.19 kg Kamryn Gonzalez Work Phone: BM-Cksizrsanckamr-Be [place] Work Phone: 06-13-2022 08:22-0400 Respiratory rate 16 /min BMET-C Kamryn Gonzalez BMET Work Phone: [facility] Work Phone: 05-24-2022 00:05-0400 Body weight 58.96 kg BMET-C Kamryn Gonzalez BMET Work Phone: [facility] Work Phone: 05-23-2022 11:35-0400 Body height 162.56 cm BMET-C Kamryn Gonzalez BMET Work Phone: [facility] Work Phone: 05-23-2022 11:35-0400 Body mass index (BMI) [Ratio] 21.9 kg/m2 BMET-C Kamryn Gonzalez BMET Work Phone: [facility] Work Phone: 05-23-2022 11:35-0400 Body temperature 98.4 [degF] BMET-C Kamryn Gonzalez BMET Work Phone: [facility] Work Phone: 05-23-2022 11:35-0400 Body weight 58.11 kg BMET-C Kamryn Posadasa BMET Work Phone: [facility] Work Phone: 05-23-2022 11:35-0400 Diastolic blood pressure 75 mm[Hg] BMET-C Kamryn Posadasa BMET Work Phone: [facility] Work Phone: 05-23-2022 11:35-0400 Heart rate 69 /min BMET-C Kamryn Posadasa BMET Work Phone: [facility] Work Phone: 05-23-2022 11:35-0400 Respiratory rate 16 /min BMET-C Kamryn Posadasa BMET Work Phone: [facility] Work Phone: 05-23-2022 11:35-0400 SaO2% (BldA) [Mass fraction] 99 % BMET-C Kamryn Posadasa BMET Work Phone: [facility] Work Phone: 05-23-2022 11:35-0400 Systolic blood pressure 152 mm[Hg] BMET-C Kamryn Posadasa BMET Work Phone: [facility] Work Phone: 05-23-2022 09:23-0400 Body mass index (BMI) [Ratio] 22.3 kg/m2 BMET-C Kamryn Posadasa BMET Work Phone: [facility] Work Phone: 05-23-2022 09:23-0400 Body temperature 97.3 [degF] BMET-C Kamryn Posadasa BMET Work Phone: [facility] Work Phone: 05-23-2022 09:23-0400 Diastolic blood pressure 61 mm[Hg] BMET-C Kamryn Posadasa BMET Work Phone: [facility] Work Phone: 05-23-2022 09:23-0400 Heart rate 67 /min BMET-C Kamryn Gonzalez BMET Work Phone: [facility] Work Phone: 05-23-2022 09:23-0400 Systolic blood pressure 125 mm[Hg] BMET-C Kamryn Gonzalez BMET Work Phone: [facility] Work Phone: 05-14-2022 08:51-0400 Body height 166.37 cm Kamryn Gonzalez Work Phone: MQ-Axjyuohbbtetly-Np alisson Work Phone: 05-14-2022 08:51-0400 Body mass index (BMI) [Ratio] 21.55 kg/m2 Kamryn Gonzalez Work Phone: LD-Qlgzqurjhlndif-Tx alisson Work Phone: 05-14-2022 08:51-0400 Body surface area Derived from formula 1.66 m2 Kamryn Gonzalez Work Phone: NV-Pndylohjapulko-Vi alisson Work Phone: 05-14-2022 08:51-0400 Body weight 59.65 kg Kamryn Gonzalez Work Phone: ZQ-Eqyzmgenwjhsuz-Mm alisson Work Phone: 05-02-2022 09:34-0400 Respiratory rate 18 /min BMET-C Kamryn Gonzalez BMET Work Phone: [facility] Work Phone: 04-30-2022 09:01-0400 Body mass index (BMI) [Ratio] 21.7 kg/m2 BMET-C Kamryn Gonzalez BMET Work Phone: [facility] Work Phone: 04-30-2022 09:01-0400 Body temperature 98 [degF] BMET-C Kamryn Gonzalez BMET Work Phone: [facility] Work Phone: 04-30-2022 09:01-0400 Body weight 57.32 kg BMET-C Kamyrn Gonzalez BMET Work Phone: [facility] Work Phone: 04-30-2022 09:01-0400 Diastolic blood pressure 69 mm[Hg] BMET-C Kamryn Gonzalez BMET Work Phone: [facility] Work Phone: 04-30-2022 09:01-0400 Heart rate 74 /min BMET-C Kamryn Gonzalez BMET Work Phone: [facility] Work Phone: 04-30-2022 09:01-0400 Respiratory rate 18 /min BMET-C Kamryn Gonzalez BMET Work Phone: [facility] Work Phone: 04-30-2022 09:01-0400 SaO2% (BldA) [Mass fraction] 100 % BMET-C Kamryn Gonzalez BMET Work Phone: [facility] Work Phone: 04-30-2022 09:01-0400 Systolic blood pressure 126 mm[Hg] BMET-C Kamryn Gonzalez BMET Work Phone: [facility] Work Phone: 04-16-2022 10:45-0400 Body height 167.64 cm Kamryn Gonzalez Work Phone: SC-Rzkdooisugrbin-Bs alisson Work Phone: 04-16-2022 10:45-0400 Body mass index (BMI) [Ratio] 20.66 kg/m2 Kamryn Gonzalez Work Phone: MU-Mbmwyqdktpjcap-Ah al[facility] Work Phone: 04-16-2022 10:45-0400 Body surface area Derived from formula 1.65 m2 Kamryn Gonzalez Work Phone: AX-Lwrbnldwjtqipc-Ih al[facility] Work Phone: 04-16-2022 10:45-0400 Body weight 58.06 kg Kamryn Gonzalez Work Phone: RY-Wfjzpwddizfdke-Cv alisson Work Phone: 04-02-2022 09:01-0400 Body height 167.64 cm Kamryn Gonzalez Work Phone: IN-Puphrnjqzbhjyl-Sf yoly Work Phone: 04-02-2022 09:01-0400 Body mass index (BMI) [Ratio] 20.4 kg/m2 Kamryn Gonzalez Work Phone: EC-Ttbpgthfprqyjs-Bn yoly Work Phone: 04-02-2022 09:01-0400 Body surface area Derived from formula 1.65 m2 Kamryn Gonzalez Work Phone: KC-Hisifoglbzrfin-In yoly Work Phone: 04-02-2022 09:01-0400 Body weight 57.33 kg Kamryn Gonzalez Work Phone: RW-Argnxuxkvxezif-Ah yoly Work Phone: 03-28-2022 11:02-0400 Body height 162.56 cm BMET-C Kamryn Gonzalez BMET Work Phone: [facility] Work Phone: 03-28-2022 11:02-0400 Body weight 57.74 kg BMET-C Kamryn Gonzalez BMET Work Phone: [facility] Work Phone: 03-27-2022 09:25-0400 Body mass index (BMI) [Ratio] 21.8 kg/m2 BMET-C Kamryn Gonzalez BMET Work Phone: [facility] Work Phone: 03-27-2022 09:25-0400 Body temperature 97.9 [degF] BMET-C Kamryn Gonzalez BMET Work Phone: [facility] Work Phone: 03-27-2022 09:25-0400 Body weight 57.74 kg BMET-C Kamryn Posadasa BMET Work Phone: [facility] Work Phone: 03-27-2022 09:25-0400 Diastolic blood pressure 69 mm[Hg] BMET-C Kamryn Posadasa BMET Work Phone: [facility] Work Phone: 03-27-2022 09:25-0400 Heart rate 78 /min BMET-C Kamryn Posadasa BMET Work Phone: [facility] Work Phone: 03-27-2022 09:25-0400 Respiratory rate 20 /min BMET-C Kamryn Posadasa BMET Work Phone: [facility] Work Phone: 03-27-2022 09:25-0400 SaO2% (BldA) [Mass fraction] 100 % BMET-C Kamryn Posadasa BMET Work Phone: [facility] Work Phone: 03-27-2022 09:25-0400 Systolic blood pressure 116 mm[Hg] BMET-C Kamryn Posadasa BMET Work Phone: [facility] Work Phone: 02-27-2022 10:05-0400 Body temperature 97 [degF] BMET-C Kamryn Posadasa BMET Work Phone: [facility] Work Phone: 02-27-2022 10:05-0400 Body weight 57.6 kg BMET-C Kamryn Posadasa BMET Work Phone: [facility] Work Phone: 02-27-2022 10:05-0400 Heart rate 71 /min BMET-C Kamryn Riveroesa BMET Work Phone: [facility] Work Phone: 02-27-2022 10:05-0400 Respiratory rate 18 /min BMET-C Kamryn Gonzalez BMET Work Phone: [facility] Work Phone: 02-27-2022 10:05-0400 SaO2% (BldA) [Mass fraction] 100 % BMET-C Kamryn Gonzalez BMET Work Phone: [facility] Work Phone: 02-15-2022 12:03-0400 Body height 170.18 cm Caridad Gomez 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 [facility] Work Phone: 02-15-2022 12:03-0400 Body mass index (BMI) [Ratio] 19.48 kg/m2 Caridad Gomez LPN [facility] Work Phone: 02-15-2022 12:03-0400 Body surface area Derived from formula 1.65 m2 Caridad Gomez LPN [facility] Work Phone: 02-15-2022 12:03-0400 Body temperature 97.3 [degF] Caridad Gomez 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 [facility] Work Phone: 02-15-2022 12:03-0400 Body weight 56.43 kg Caridad Jason [employer] [facility] Work Phone: 02-15-2022 12:03-0400 Diastolic blood pressure 64 mm[Hg] Caridad Gomez 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 [facility] Work [...] Standard 02-14-2022 10:44-0400 Body height 162.56 cm BMET-C Kamryn Gonzalez BMET Work Phone: [facility] Work Phone: 02-14-2022 10:44-0400 Body mass index (BMI) [Ratio] 21.8 kg/m2 BMET-C Kamryn Gonzalez BMET Work Phone: [facility] Work Phone: 02-14-2022 10:38-0400 Body temperature 98.2 [degF] BMET-C Kamryn Gonzalez BMET Work Phone: [facility] Work Phone: 02-14-2022 10:38-0400 Body weight 57.71 kg BMET-C Kamryn Gonzalez BMET Work Phone: [facility] Work Phone: 02-14-2022 10:38-0400 Diastolic blood pressure 61 mm[Hg] BMET-C Kamryn Posadasa BMET Work Phone: [facility] Work Phone: 02-14-2022 10:38-0400 Heart rate 77 /min BMET-C Kamryn Posadasa BMET Work Phone: [facility] Work Phone: 02-14-2022 10:38-0400 Respiratory rate 17 /min BMET-C Kamryn Posadasa BMET Work Phone: [facility] Work Phone: 02-14-2022 10:38-0400 SaO2% (BldA) [Mass fraction] 100 % BMET-C Kamryn Gonzalez BMET Work Phone: [facility] Work Phone: 02-14-2022 10:38-0400 Systolic blood pressure 107 mm[Hg] BMET-C Kamryn Gonzalez BMET Work Phone: [facility] Work Phone: 02-12-2022 11:25-0400 Body height 167.64 cm Kamryn Gonzalez Work Phone: CU-Ilcrlooaqhsvqy-Bx [facility] Work Phone: 02-12-2022 11:25-0400 Body mass index (BMI) [Ratio] 20.4 kg/m2 Kamryn Gonzalez Work Phone: ZX-Ygwoiaggdbtvcf-Yt alisson Work Phone: 02-12-2022 11:25-0400 Body surface area Derived from formula 1.65 m2 Kamryn Gonzalez Work Phone: BW-Sfhwyruiomgdgv-Xj alisson Work Phone: 02-12-2022 11:25-0400 Body weight 57.33 kg Kamryn Gonzalez Work Phone: MN-Dzifhbhsjsjbtn-Ws alisson Work Phone: 02-06-2022 08:50-0400 Body mass index (BMI) [Ratio] 20.4 kg/m2 BMET-C Kamryn Gonzalez BMET Work Phone: [facility] Work Phone: 02-06-2022 08:50-0400 Body temperature 97.8 [degF] BMET-C Kamryn Gonzalez BMET Work Phone: [facility] Work Phone: 02-06-2022 08:50-0400 Body weight 57.4 kg BMET-C Kamryn Gonzalez BMET Work Phone: [facility] Work Phone: 02-06-2022 08:50-0400 Diastolic blood pressure 69 mm[Hg] BMET-C Kamryn Posadasa BMET Work Phone: [facility] Work Phone: 02-06-2022 08:50-0400 Heart rate 69 /min BMET-C Kamryn Posadasa BMET Work Phone: [facility] Work Phone: 02-06-2022 08:50-0400 Respiratory rate 17 /min BMET-C Kamryn Posadasa BMET Work Phone: [facility] Work Phone: 02-06-2022 08:50-0400 SaO2% (BldA) [Mass fraction] 700 % BMET-C Kamryn Posadasa BMET Work Phone: [facility] Work Phone: 02-06-2022 08:50-0400 Systolic blood pressure 127 mm[Hg] BMET-C Kamryn Posadasa BMET Work Phone: [facility] Work Phone: 02-05-2022 09:38-0400 Body weight 57.6 kg BMET-C Kamryn Posadasa BMET Work Phone: [facility] 01-31-2022 08:40-0400 Body mass index (BMI) [Ratio] 20.2 kg/m2 BMET-C Kamryn Posadasa BMET Work Phone: [facility] Work Phone: 01-31-2022 08:40-0400 Body temperature 97.7 [degF] BMET-C Kamryn Posadasa BMET Work Phone: [facility] Work Phone: 01-31-2022 08:40-0400 Body weight 56.75 kg BMET-C Kamryn Posadasa BMET Work Phone: [facility] Work Phone: 01-31-2022 08:40-0400 Diastolic blood pressure 69 mm[Hg] BMET-C Kamryn Posadasa BMET Work Phone: [facility] Work Phone: 01-31-2022 08:40-0400 Heart rate 66 /min BMET-C Kamryn Posadasa BMET Work Phone: [facility] Work Phone: 01-31-2022 08:40-0400 Respiratory rate 18 /min BMET-C Kamryn Posadasa BMET Work Phone: [facility] Work Phone: 01-31-2022 08:40-0400 SaO2% (BldA) [Mass fraction] 99 % BMET-C Kamryn Posadasa BMET Work Phone: [facility] Work Phone: 01-31-2022 08:40-0400 Systolic blood pressure 119 mm[Hg] BMET-C Kamryn Posadasa BMET Work Phone: [facility] Work Phone: 01-25-2022 10:29-0400 Body temperature 98.2 [degF] BMET-C Kamryn Posadasa BMET Work Phone: [facility] Work Phone: 01-25-2022 10:29-0400 Diastolic blood pressure 74 mm[Hg] BMET-C Kamryn Posadasa BMET Work Phone: [facility] Work Phone: 01-25-2022 10:29-0400 Heart rate 69 /min BMET-C Kamryn Posadasa BMET Work Phone: [facility] Work Phone: 01-25-2022 10:29-0400 Respiratory rate 18 /min BMET-C Kamryn Posadasa BMET Work Phone: [facility] Work Phone: 01-25-2022 10:29-0400 SaO2% (BldA) [Mass fraction] 100 % BMET-C Kamryn Posadasa BMET Work Phone: [facility] Work Phone: 01-25-2022 10:29-0400 Systolic blood pressure 126 mm[Hg] BMET-C Kamryn Posadasa BMET Work Phone: [facility] Work Phone: 01-25-2022 05:43-0400 Body weight 56.6 kg BMET-C Kamryn Posadasa BMET Work Phone: [facility] Work Phone: 01-24-2022 10:30-0400 Body mass index (BMI) [Ratio] 19.7 kg/m2 BMET-C Kamryn Posadasa BMET Work Phone: [facility] Work Phone: 01-24-2022 10:30-0400 Body temperature 98.1 [degF] BMET-C Kamryn Posadasa BMET Work Phone: [facility] Work Phone: 01-24-2022 10:30-0400 Body weight 55.42 kg BMET-C Kamryn Posadasa BMET Work Phone: [facility] Work Phone: 01-24-2022 10:30-0400 Diastolic blood pressure 61 mm[Hg] BMET-C Kamryn Posadasa BMET Work Phone: [facility] Work Phone: 01-24-2022 10:30-0400 Heart rate 73 /min BMET-C Kamryn Posadasa BMET Work Phone: [facility] Work Phone: 01-24-2022 10:30-0400 Respiratory rate 16 /min BMET-C Kamryn Posadasa BMET Work Phone: [facility] Work Phone: 01-24-2022 10:30-0400 SaO2% (BldA) [Mass fraction] 95 % BMET-C Kamryn Posadasa BMET Work Phone: [facility] Work Phone: 01-24-2022 10:30-0400 Systolic blood pressure 101 mm[Hg] BMET-C Kamryn Posadasa BMET Work Phone: [facility] Work Phone: 01-24-2022 10:30-0400 Body height 167.64 cm BMET-C Kamryn Posadasa BMET Work Phone: [facility] Work Phone: 01-24-2022 10:30-0400 Body mass index (BMI) [Ratio] 19.7 kg/m2 BMET-C Kamryn Posadasa BMET Work Phone: [facility] Work Phone: 01-24-2022 10:30-0400 Body temperature 98.1 [degF] BMET-C Kamryn Posadasa BMET Work Phone: [facility] Work Phone: 01-24-2022 10:30-0400 Body weight 55.42 kg BMET-C Kamryn Posadasa BMET Work Phone: [facility] Work Phone: 01-24-2022 10:30-0400 Diastolic blood pressure 61 mm[Hg] BMET-C Kamryn Posadasa BMET Work Phone: [facility] Work Phone: 01-24-2022 10:30-0400 Heart rate 73 /min BMET-C Kamryn Posadasa BMET Work Phone: [facility] Work Phone: 01-24-2022 10:30-0400 Respiratory rate 16 /min BMET-C Kamrny Posadasa BMET Work Phone: [facility] Work Phone: 01-24-2022 10:30-0400 SaO2% (BldA) [Mass fraction] 95 % BMET-C Kamryn Riveroesa BMET Work Phone: [facility] Work Phone: 01-24-2022 10:30-0400 Systolic blood pressure 101 mm[Hg] BMET-C Kamryn Gonzalez BMET Work Phone: [facility] Work Phone: 01-23-2022 21:34-0400 Body temperature 98 [degF] BMET-C Kamryn Gonzalez BMET Work Phone: [facility] Work Phone: 01-23-2022 21:34-0400 Diastolic blood pressure 66 mm[Hg] BMET-C Kamryn Posadasa BMET Work Phone: [facility] Work Phone: 01-23-2022 21:34-0400 Heart rate 72 /min BMET-C Kamryn Gonzalez BMET Work Phone: [facility] Work Phone: 01-23-2022 21:34-0400 Respiratory rate 18 /min BMET-C Kamryn Gonzalez BMET Work Phone: [facility] Work Phone: 01-23-2022 21:34-0400 SaO2% (BldA) [Mass fraction] 100 % BMET-C Kamryn Gonzalez BMET Work Phone: [facility] Work Phone: 01-23-2022 21:34-0400 Systolic blood pressure 115 mm[Hg] BMET-C Kamryn Gonzalez BMET Work Phone: [facility] Work Phone: 01-23-2022 11:23-0400 Body height 167.64 cm BMET-C Kamryn Posadasa BMET Work Phone: [facility] Work Phone: 01-23-2022 11:23-0400 Body weight 56.7 kg BMET-C Kamryn Posadasa BMET Work Phone: [facility] Work Phone: 01-22-2022 22:45-0400 Body mass index (BMI) [Ratio] 20.1 kg/m2 BMET-C Kamryn Posadasa BMET Work Phone: [facility] Work Phone: 01-17-2022 11:57-0400 Body temperature 98 [degF] BMET-C Kamryn Posadasa BMET Work Phone: [facility] Work Phone: 01-17-2022 11:57-0400 Diastolic blood pressure 70 mm[Hg] BMET-C Kamryn Posadasa BMET Work Phone: [facility] Work Phone: 01-17-2022 11:57-0400 Heart rate 66 /min BMET-C Kamryn Posadasa BMET Work Phone: [facility] Work Phone: 01-17-2022 11:57-0400 Respiratory rate 16 /min BMET-C Kamryn Posadasa BMET Work Phone: [facility] Work Phone: 01-17-2022 11:57-0400 SaO2% (BldA) [Mass fraction] 100 % BMET-C Kamryn Posadasa BMET Work Phone: [facility] Work Phone: 01-17-2022 11:57-0400 Systolic blood pressure 127 mm[Hg] BMET-C Kamryn Posadasa BMET Work Phone: [facility] Work Phone: 01-17-2022 11:57-0400 Body temperature 98 [degF] BMET-C Kamryn Posadasa BMET Work Phone: [facility] Work Phone: 01-17-2022 11:57-0400 Diastolic blood pressure 70 mm[Hg] BMET-C Kamryn Posadasa BMET Work Phone: [facility] Work Phone: 01-17-2022 11:57-0400 Heart rate 66 /min BMET-C Kamryn Posadasa BMET Work Phone: [facility] Work Phone: 01-17-2022 11:57-0400 Respiratory rate 16 /min BMET-C Kamryn Gonzalez BMET Work Phone: [facility] Work Phone: 01-17-2022 11:57-0400 SaO2% (BldA) [Mass fraction] 100 % BMET-C Kamryn Posadasa BMET Work Phone: [facility] Work Phone: 01-17-2022 11:57-0400 Systolic blood pressure 127 mm[Hg] BMET-C Kamryn Posadasa BMET Work Phone: [facility] Work Phone: 01-17-2022 09:41-0400 Body mass index (BMI) [Ratio] 20.2 kg/m2 BMET-C Kamryn Posadasa BMET Work Phone: [facility] 01-17-2022 09:41-0400 Body weight 55.33 kg BMET-C Kamryn Posadasa BMET Work Phone: [facility] Work Phone: 01-17-2022 09:26-0400 Body mass index (BMI) [Ratio] 20.2 kg/m2 BMET-C Kamryn Posadasa BMET Work Phone: [facility] Work Phone: 01-17-2022 09:26-0400 Body temperature 98.5 [degF] BMET-C Kamryn Posadasa BMET Work Phone: [facility] Work Phone: 01-17-2022 09:26-0400 Body weight 55.33 kg BMET-C Kamryn Posadasa BMET Work Phone: [facility] Work Phone: 01-17-2022 09:26-0400 Diastolic blood pressure 76 mm[Hg] BMET-C Kamryn Posadasa BMET Work Phone: [facility] Work Phone: 01-17-2022 09:26-0400 Heart rate 69 /min BMET-C Kamryn Posadasa BMET Work Phone: [facility] Work Phone: 01-17-2022 09:26-0400 Respiratory rate 18 /min BMET-C Kamryn Posadasa BMET Work Phone: [facility] Work Phone: 01-17-2022 09:26-0400 SaO2% (BldA) [Mass fraction] 100 % BMET-C Kamryn Posadasa BMET Work Phone: [facility] Work Phone: 01-17-2022 09:26-0400 Systolic blood pressure 123 mm[Hg] BMET-C Kamryn Posadasa BMET Work Phone: [facility] Work Phone: 01-17-2022 09:26-0400 Body mass index (BMI) [Ratio] 20.2 kg/m2 BMET-C Kamryn Posadasa BMET Work Phone: [facility] Work Phone: 01-17-2022 09:26-0400 Body temperature 98.5 [degF] BMET-C Kamryn Posadasa BMET Work Phone: [facility] Work Phone: 01-17-2022 09:26-0400 Body weight 55.33 kg BMET-C Kamryn Posadasa BMET Work Phone: [facility] Work Phone: 01-17-2022 09:26-0400 Diastolic blood pressure 76 mm[Hg] BMET-C Kamryn Posadasa BMET Work Phone: [facility] Work Phone: 01-17-2022 09:26-0400 Heart rate 69 /min BMET-C Kamryn Posadasa BMET Work Phone: [facility] Work Phone: 01-17-2022 09:26-0400 Respiratory rate 18 /min BMET-C Kamryn Gonzalez BMET Work Phone: [facility] Work Phone: 01-17-2022 09:26-0400 SaO2% (BldA) [Mass fraction] 100 % BMET-C Kamryn Gonzalez BMET Work Phone: [facility] Work Phone: 01-17-2022 09:26-0400 Systolic blood pressure 123 mm[Hg] BMET-C Kamryn Gonzalez BMET Work Phone: [facility] Work Phone: 01-15-2022 10:00-0400 Body height 167.64 cm Kamryn Gonzalez Work Phone: SH-Kkeaiizbnlfzcg-Wx alisson Work Phone: 01-15-2022 10:00-0400 Body mass index (BMI) [Ratio] 19.85 kg/m2 Kamryn Gonzalez Work Phone: EA-Ablszpphqfongd-Dn alisson Work Phone: 01-15-2022 10:00-0400 Body surface area Derived from formula 1.63 m2 Kamryn Gonzalez Work Phone: QL-Zoxlmarguldzcv-Km alisson Work Phone: 01-15-2022 10:00-0400 Body temperature 97.5 [degF] Kamryn Gonzalez Work Phone: MW-Noxyrmabfttiwi-Wq alisson Work Phone: 01-15-2022 10:00-0400 Body weight 55.79 kg Kamryn Gonzalez Work Phone: CO-Ttiaxxivlswecm-Qe alisson Work Phone: 01-10-2022 12:27-0400 Body temperature 97.4 [degF] BMET-C Kamryn Gonzalez BMET Work Phone: [facility] 01-10-2022 12:27-0400 Diastolic blood pressure 61 mm[Hg] BMET-C Kamryn Posadasa BMET Work Phone: [facility] 01-10-2022 12:27-0400 Heart rate 64 /min BMET-C Kamryn Posadasa BMET Work Phone: [facility] 01-10-2022 12:27-0400 Respiratory rate 18 /min BMET-C Kamryn Posadasa BMET Work Phone: [facility] 01-10-2022 12:27-0400 SaO2% (BldA) [Mass fraction] 98 % BMET-C Kamryn Gonzalez BMET Work Phone: [facility] 01-10-2022 12:27-0400 Systolic blood pressure 118 mm[Hg] BMET-C Kamryn Posadasa BMET Work Phone: [facility] 01-10-2022 10:32-0400 Body height 165.1 cm BMET-C Kamryn Posadasa BMET Work Phone: [facility] Work Phone: 01-10-2022 10:32-0400 Body mass index (BMI) [Ratio] 20.8 kg/m2 BMET-C Kamryn Gonzalez BMET Work Phone: [facility] Work Phone: 01-10-2022 10:32-0400 Body weight 56.78 kg BMET-C Kamryn Posadasa BMET Work Phone: [facility] Work Phone: 01-10-2022 09:15-0400 Body mass index (BMI) [Ratio] 20.8 kg/m2 BMET-C Kamryn Posadasa BMET Work Phone: [facility] Work Phone: 01-10-2022 09:15-0400 Body temperature 98.1 [degF] BMET-C Kamryn Posadasa BMET Work Phone: [facility] Work Phone: 01-10-2022 09:15-0400 Body weight 56.78 kg BMET-C Kamryn Posadasa BMET Work Phone: [facility] Work Phone: 01-10-2022 09:15-0400 Diastolic blood pressure 67 mm[Hg] BMET-C Kamryn Posadasa BMET Work Phone: [facility] Work Phone: 01-10-2022 09:15-0400 Heart rate 67 /min BMET-C Kamryn Posadasa BMET Work Phone: [facility] Work Phone: 01-10-2022 09:15-0400 Respiratory rate 16 /min BMET-C Kamryn Posadasa BMET Work Phone: [facility] Work Phone: 01-10-2022 09:15-0400 Systolic blood pressure 121 mm[Hg] BMET-C Kamryn Posadasa BMET Work Phone: [facility] Work Phone: 01-10-2022 09:15-0400 Body mass index (BMI) [Ratio] 20.8 kg/m2 BMET-C Kamryn Posadasa BMET Work Phone: [facility] Work Phone: 01-10-2022 09:15-0400 Body temperature 98.1 [degF] BMET-C Kamryn Posadasa BMET Work Phone: [facility] Work Phone: 01-10-2022 09:15-0400 Body weight 56.78 kg BMET-C Kamryn Riveroesa BMET Work Phone: [facility] Work Phone: 01-10-2022 09:15-0400 Diastolic blood pressure 67 mm[Hg] BMET-C Kamryn Posadasa BMET Work Phone: [facility] Work Phone: 01-10-2022 09:15-0400 Heart rate 67 /min BMET-C Kamryn Posadasa BMET Work Phone: [facility] Work Phone: 01-10-2022 09:15-0400 Respiratory rate 16 /min BMET-C Kamryn Posadasa BMET Work Phone: [facility] Work Phone: 01-10-2022 09:15-0400 Systolic blood pressure 121 mm[Hg] BMET-C Kamryn Posadasa BMET Work Phone: [facility] Work Phone: 01-04-2022 08:57-0400 Body temperature 98.7 [degF] BMET-C Kamryn Posadasa BMET Work Phone: [facility] Work Phone: 01-04-2022 08:57-0400 Body weight 56.44 kg BMET-C Kamryn Posadasa BMET Work Phone: [facility] Work Phone: 01-04-2022 08:57-0400 Diastolic blood pressure 64 mm[Hg] BMET-C Kamryn Posadasa BMET Work Phone: [facility] Work Phone: 01-04-2022 08:57-0400 Heart rate 70 /min BMET-C Kamryn Posadasa BMET Work Phone: [facility] Work Phone: 01-04-2022 08:57-0400 Respiratory rate 14 /min BMET-C Kamryn Posadasa BMET Work Phone: [facility] Work Phone: 01-04-2022 08:57-0400 SaO2% (BldA) [Mass fraction] 93 % BMET-C Kamryn Posadasa BMET Work Phone: [facility] Work Phone: 01-04-2022 08:57-0400 Systolic blood pressure 118 mm[Hg] BMET-C Kmaryn Posadasa BMET Work Phone: [facility] Work Phone: 01-04-2022 08:57-0400 Body temperature 98.7 [degF] BMET-C Kamryn Gonzalez BMET Work Phone: [facility] Work Phone: 01-04-2022 08:57-0400 Body weight 56.44 kg BMET-C Kamryn Posadasa BMET Work Phone: [facility] Work Phone: 01-04-2022 08:57-0400 Diastolic blood pressure 64 mm[Hg] BMET-C Kamryn Posadasa BMET Work Phone: [facility] Work Phone: 01-04-2022 08:57-0400 Heart rate 70 /min BMET-C Kamryn Posadasa BMET Work Phone: [facility] Work Phone: 01-04-2022 08:57-0400 Respiratory rate 14 /min BMET-C Kamryn Posadasa BMET Work Phone: [facility] Work Phone: 01-04-2022 08:57-0400 SaO2% (BldA) [Mass fraction] 93 % BMET-C Kamryn Gonzalez BMET Work Phone: [facility] Work Phone: 01-04-2022 08:57-0400 Systolic blood pressure 118 mm[Hg] BMET-C Kamryn Posadasa BMET Work Phone: [facility] Work Phone: 01-03-2022 09:38-0400 Body mass index (BMI) [Ratio] 21.1 kg/m2 BMET-C Kamryn Posadasa BMET Work Phone: [facility] Work Phone: 01-03-2022 09:38-0400 Body temperature 99.2 [degF] BMET-C Kamryn Posadasa BMET Work Phone: [facility] Work Phone: 01-03-2022 09:38-0400 Body weight 57.6 kg BMET-C Kamryn Gonzalez BMET Work Phone: [facility] Work Phone: 01-03-2022 09:38-0400 Diastolic blood pressure 64 mm[Hg] BMET-C Kamryn Gonzalez BMET Work Phone: [facility] Work Phone: 01-03-2022 09:38-0400 Heart rate 77 /min BMET-C Kamryn Gonzalez BMET Work Phone: [facility] Work Phone: 01-03-2022 09:38-0400 Respiratory rate 18 /min BMET-C Kamryn Gonzalez BMET Work Phone: [facility] Work Phone: 01-03-2022 09:38-0400 SaO2% (BldA) [Mass fraction] 99 % BMET-C Kamryn Gonzalez BMET Work Phone: [facility] Work Phone: 01-03-2022 09:38-0400 Systolic blood pressure 123 mm[Hg] BMET-C Kamryn Gonzalez BMET Work Phone: [facility] Work Phone: 01-03-2022 09:38-0400 Body mass index (BMI) [Ratio] 21.1 kg/m2 BMET-C Kamryn Gonzalez BMET Work Phone: [facility] Work Phone: 01-03-2022 09:38-0400 Body temperature 99.2 [degF] BMET-C Kamryn Gonzalez BMET Work Phone: [facility] Work Phone: 01-03-2022 09:38-0400 Body weight 57.6 kg BMET-C Kamryn Posadasa BMET Work Phone: [facility] Work Phone: 01-03-2022 09:38-0400 Diastolic blood pressure 64 mm[Hg] BMET-C Kamryn Gonzalez BMET Work Phone: [facility] Work Phone: 01-03-2022 09:38-0400 Heart rate 77 /min BMET-C Kamryn Gonzalez BMET Work Phone: [facility] Work Phone: 01-03-2022 09:38-0400 Respiratory rate 18 /min BMET-C Kamryn Gonzalez BMET Work Phone: [facility] Work Phone: 01-03-2022 09:38-0400 SaO2% (BldA) [Mass fraction] 99 % BMET-C Kamryn Gonzalez BMET Work Phone: [facility] Work Phone: 01-03-2022 09:38-0400 Systolic blood pressure 123 mm[Hg] BMET-C Kamryn Gonzalez BMET Work Phone: [facility] Work Phone: 12-29-2021 15:44-0400 Body height 167.64 cm Kamryn Gonzalez Work Phone: KJ-Pdrqbydvbqwrpb-Dp idman Work Phone: 12-29-2021 15:44-0400 Body mass index (BMI) [Ratio] 20.51 kg/m2 Kamryn Gonzalez Work Phone: MF-Ffnklvjuxmlcqx-Re idman Work Phone: 12-29-2021 15:44-0400 Body surface area Derived from formula 1.65 m2 Kamryn Gonzalez Work Phone: TX-Xvehpymwwftkml-Lw idman Work Phone: 12-29-2021 15:44-0400 Body weight 57.63 kg Kamryn Gonzalez Work Phone: EH-Mdlouqnfdqtdzm-Ng idman Work Phone: 12-27-2021 08:59-0400 Body mass index (BMI) [Ratio] 20.5 kg/m2 BMET-C Kamryn Posadasa BMET Work Phone: [facility] Work Phone: 12-27-2021 08:59-0400 Body temperature 98.4 [degF] BMET-C Kamryn Posadasa BMET Work Phone: [facility] Work Phone: 12-27-2021 08:59-0400 Body weight 55.9 kg BMET-C Kamryn Posadasa BMET Work Phone: [facility] Work Phone: 12-27-2021 08:59-0400 Diastolic blood pressure 72 mm[Hg] BMET-C Kamryn Posadasa BMET Work Phone: [facility] Work Phone: 12-27-2021 08:59-0400 Heart rate 70 /min BMET-C Kamryn Posadasa BMET Work Phone: [facility] Work Phone: 12-27-2021 08:59-0400 Respiratory rate 22 /min BMET-C Kamryn Posadasa BMET Work Phone: [facility] Work Phone: 12-27-2021 08:59-0400 SaO2% (BldA) [Mass fraction] 96 % BMET-C Kamryn Posadasa BMET Work Phone: [facility] Work Phone: 12-27-2021 08:59-0400 Systolic blood pressure 138 mm[Hg] BMET-C Kamryn Posadasa BMET Work Phone: [facility] Work Phone: 12-27-2021 08:59-0400 Body mass index (BMI) [Ratio] 20.5 kg/m2 BMET-C Kamryn Posadasa BMET Work Phone: [facility] Work Phone: 12-27-2021 08:59-0400 Body temperature 98.4 [degF] BMET-C Kamryn Posadasa BMET Work Phone: [facility] Work Phone: 12-27-2021 08:59-0400 Body weight 55.9 kg BMET-C Kamryn Posadasa BMET Work Phone: [facility] Work Phone: 12-27-2021 08:59-0400 Diastolic blood pressure 72 mm[Hg] BMET-C Kamryn Posadasa BMET Work Phone: [facility] Work Phone: 12-27-2021 08:59-0400 Heart rate 70 /min BMET-C Kamryn Posadasa BMET Work Phone: [facility] Work Phone: 12-27-2021 08:59-0400 Respiratory rate 22 /min BMET-C Kamryn Posadasa BMET Work Phone: [facility] Work Phone: 12-27-2021 08:59-0400 SaO2% (BldA) [Mass fraction] 96 % BMET-C Kamryn Gonzalez BMET Work Phone: [facility] Work Phone: 12-27-2021 08:59-0400 Systolic blood pressure 138 mm[Hg] BMET-C Kamryn Posadasa BMET Work Phone: [facility] Work Phone: 12-20-2021 11:13-0400 Body temperature 98.3 [degF] BMET-C Kamryn Posadasa BMET Work Phone: [facility] Work Phone: 12-20-2021 11:13-0400 Heart rate 69 /min BMET-C Kamryn Posadasa BMET Work Phone: [facility] Work Phone: 12-20-2021 11:13-0400 Respiratory rate 18 /min BMET-C Kamryn Gonzalez BMET Work Phone: [facility] Work Phone: 12-20-2021 11:13-0400 SaO2% (BldA) [Mass fraction] 98 % BMET-C Kamryn Gonzalez BMET Work Phone: [facility] Work Phone: 12-20-2021 11:13-0400 Body temperature 98.3 [degF] BMET-C Kamryn Gonzalez BMET Work Phone: [facility] Work Phone: 12-20-2021 11:13-0400 Heart rate 69 /min BMET-C Kamryn Posadasa BMET Work Phone: [facility] Work Phone: 12-20-2021 11:13-0400 Respiratory rate 18 /min BMET-C Kamryn Posadasa BMET Work Phone: [facility] Work Phone: 12-20-2021 11:13-0400 SaO2% (BldA) [Mass fraction] 98 % BMET-C Kamryn Gonzalez BMET Work Phone: [facility] Work Phone: 12-20-2021 10:44-0400 Body height 165.1 cm BMET-C Kamryn Posadasa BMET Work Phone: [facility] Work Phone: 12-20-2021 10:44-0400 Body mass index (BMI) [Ratio] 20.6 kg/m2 BMET-C Kamryn Posadasa BMET Work Phone: [facility] Work Phone: 12-20-2021 10:44-0400 Body weight 56.24 kg BMET-C Kamryn Posadasa BMET Work Phone: [facility] Work Phone: 12-20-2021 10:27-0400 Body temperature 98.3 [degF] BMET-C Kamryn Gonzalez BMET Work Phone: [facility] Work Phone: 12-20-2021 10:27-0400 Diastolic blood pressure 68 mm[Hg] BMET-C Kamryn Gonzalez BMET Work Phone: [facility] Work Phone: 12-20-2021 10:27-0400 Heart rate 69 /min BMET-C Kamryn Gonzalez BMET Work Phone: [facility] Work Phone: 12-20-2021 10:27-0400 Respiratory rate 18 /min BMET-C Kamryn Gonzalez BMET Work Phone: [facility] Work Phone: 12-20-2021 10:27-0400 SaO2% (BldA) [Mass fraction] 98 % BMET-C Kamryn Gonzalez BMET Work Phone: [facility] Work Phone: 12-20-2021 10:27-0400 Systolic blood pressure 118 mm[Hg] BMET-C Kamryn Gonzalez BMET Work Phone: [facility] Work Phone: 12-18-2021 15:55-0400 Body height 167.64 cm Kamryn Gonzalez Work Phone: EZ-Qokqydgluqiyom-Wy alisson Work Phone: 12-18-2021 15:55-0400 Body mass index (BMI) [Ratio] 19.89 kg/m2 Kamryn Gonzalez Work Phone: HU-Eizkdwgraeqysx-Br alisson Work Phone: 12-18-2021 15:55-0400 Body surface area Derived from formula 1.63 m2 Kamryn Gonzalez Work Phone: SF-Csqshcywtksdzv-Rg alisson Work Phone: 12-18-2021 15:55-0400 Body weight 55.91 kg Kamryn Gonzalez Work Phone: SH-Lxluroxvmmivec-Dy alisson Work Phone: 12-18-2021 08:53-0400 Body mass index (BMI) [Ratio] 20.2 kg/m2 BMET-C Kamryn Gonzalez BMET Work Phone: [facility] Work Phone: 12-18-2021 08:53-0400 Body temperature 98.4 [degF] BMET-C Kamryn Gonzalez BMET Work Phone: [facility] Work Phone: 12-18-2021 08:53-0400 Body weight 55.11 kg BMET-C Kamryn Gonzalez BMET Work Phone: [facility] Work Phone: 12-18-2021 08:53-0400 Diastolic blood pressure 72 mm[Hg] BMET-C Kamryn Gonzalez BMET Work Phone: [facility] Work Phone: 12-18-2021 08:53-0400 Heart rate 76 /min BMET-C Kamryn Gonzalez BMET Work Phone: [facility] Work Phone: 12-18-2021 08:53-0400 Respiratory rate 18 /min BMET-C Kamryn Gonzalez BMET Work Phone: [facility] Work Phone: 12-18-2021 08:53-0400 SaO2% (BldA) [Mass fraction] 97 % BMET-C Kamryn Gonzalez BMET Work Phone: [facility] Work Phone: 12-18-2021 08:53-0400 Systolic blood pressure 135 mm[Hg] BMET-C Kamryn Gonzalez BMET Work Phone: [facility] Work Phone: 12-18-2021 08:53-0400 Body mass index (BMI) [Ratio] 20.2 kg/m2 BMET-C Kamryn Posadasa BMET Work Phone: [facility] Work Phone: 12-18-2021 08:53-0400 Body temperature 98.4 [degF] BMET-C Kamryn Posadasa BMET Work Phone: [facility] Work Phone: 12-18-2021 08:53-0400 Body weight 55.11 kg BMET-C Kamryn Posadasa BMET Work Phone: [facility] Work Phone: 12-18-2021 08:53-0400 Diastolic blood pressure 72 mm[Hg] BMET-C Kamryn Posadasa BMET Work Phone: [facility] Work Phone: 12-18-2021 08:53-0400 Heart rate 76 /min BMET-C Kamryn Posadasa BMET Work Phone: [facility] Work Phone: 12-18-2021 08:53-0400 Respiratory rate 18 /min BMET-C Kamryn Posadasa BMET Work Phone: [facility] Work Phone: 12-18-2021 08:53-0400 SaO2% (BldA) [Mass fraction] 97 % BMET-C Kamryn Posadasa BMET Work Phone: [facility] Work Phone: 12-18-2021 08:53-0400 Systolic blood pressure 135 mm[Hg] BMET-C Kamryn Posadasa BMET Work Phone: [facility] Work Phone: 12-15-2021 10:53-0400 Body height 165.1 cm BMET-C Kamryn Posadasa BMET Work Phone: [facility] Work Phone: 12-15-2021 10:53-0400 Body mass index (BMI) [Ratio] 20.5 kg/m2 BMET-C Kamryn Gonzalez BMET Work Phone: [facility] Work Phone: 12-15-2021 10:53-0400 Body temperature 96.9 [degF] BMET-C Kamrny Gonzalez BMET Work Phone: [facility] Work Phone: 12-15-2021 10:53-0400 Body weight 55.79 kg BMET-C Kamryn Posadasa BMET Work Phone: [facility] Work Phone: 12-15-2021 10:53-0400 Diastolic blood pressure 64 mm[Hg] BMET-C Kamryn Posadasa BMET Work Phone: [facility] Work Phone: 12-15-2021 10:53-0400 Heart rate 73 /min BMET-C Kamryn Posadasa BMET Work Phone: [facility] Work Phone: 12-15-2021 10:53-0400 Respiratory rate 17 /min BMET-C Kamryn Gonzalez BMET Work Phone: [facility] Work Phone: 12-15-2021 10:53-0400 SaO2% (BldA) [Mass fraction] 99 % BMET-C Kamryn Gonzalez BMET Work Phone: [facility] Work Phone: 12-15-2021 10:53-0400 Systolic blood pressure 131 mm[Hg] BMET-C Kamryn Gonzalez BMET Work Phone: [facility] Work Phone: 12-15-2021 08:45-0400 Body height 170.18 [...] Standard 12-11-2021 11:34-0400 Body weight 53.97 kg BMET-C Kamryn Gonzalez BMET Work Phone: [facility] Work Phone: 12-10-2021 18:23-0400 Heart rate 70 /min BMET-C Kamryn Gonzalez BMET Work Phone: [facility] Work Phone: 12-10-2021 18:23-0400 Respiratory rate 16 /min BMET-C Kamryn Posadasa BMET Work Phone: [facility] Work Phone: 12-10-2021 18:23-0400 SaO2% (BldA) [Mass fraction] 99 % BMET-C Kamryn Posadasa BMET Work Phone: [facility] Work Phone: 12-10-2021 16:40-0400 Body height 167.64 cm BMET-C Kamryn Posadasa BMET Work Phone: [facility] Work Phone: 12-10-2021 16:40-0400 Body mass index (BMI) [Ratio] 19.7 kg/m2 BMET-C Kamryn Posadasa BMET Work Phone: [facility] Work Phone: 12-10-2021 16:40-0400 Body temperature 97.8 [degF] BMET-C Kamryn Posadasa BMET Work Phone: [facility] Work Phone: 12-10-2021 16:40-0400 Body weight 55.33 kg BMET-C Kamryn Posadasa BMET Work Phone: [facility] Work Phone: 12-10-2021 16:40-0400 Diastolic blood pressure 70 mm[Hg] BMET-C Kamryn Posadasa BMET Work Phone: [facility] Work Phone: 12-10-2021 16:40-0400 Systolic blood pressure 144 mm[Hg] BMET-C Kamryn Posadasa BMET Work Phone: [facility] Work Phone: 12-07-2021 14:56-0400 Body weight 54.54 kg BMET-C Kamryn Posadasa BMET Work Phone: [facility] Work Phone: 12-07-2021 14:56-0400 Body weight 54.54 kg BMET-C Kamryn Posadasa BMET Work Phone: [facility] Work Phone: 12-07-2021 14:25-0400 Body temperature 98.2 [degF] BMET-C Kamryn Riveroesa BMET Work Phone: [facility] Work Phone: 12-07-2021 14:25-0400 Diastolic blood pressure 76 mm[Hg] BMET-C Kamryn Riveroesa BMET Work Phone: [facility] Work Phone: 12-07-2021 14:25-0400 Heart rate 75 /min BMET-C Kamryn Riveroesa BMET Work Phone: [facility] Work Phone: 12-07-2021 14:25-0400 Respiratory rate 14 /min BMET-C Kamryn Riveroesa BMET Work Phone: [facility] Work Phone: 12-07-2021 14:25-0400 SaO2% (BldA) [Mass fraction] 100 % BMET-C Kamyrn Posadasa BMET Work Phone: [facility] Work Phone: 12-07-2021 14:25-0400 Systolic blood pressure 132 mm[Hg] BMET-C Kamryn Riveroesa BMET Work Phone: [facility] Work Phone: 12-07-2021 14:25-0400 Body temperature 98.2 [degF] BMET-C Kamryn Riveroesa BMET Work Phone: [facility] Work Phone: 12-07-2021 14:25-0400 Diastolic blood pressure 76 mm[Hg] BMET-C Kamryn Ciesa BMET Work Phone: [facility] Work Phone: 12-07-2021 14:25-0400 Heart rate 75 /min BMET-C Kamryn Ciesa BMET Work Phone: [facility] Work Phone: 12-07-2021 14:25-0400 Respiratory rate 14 /min BMET-C Kamryn Posadasa BMET Work Phone: [facility] Work Phone: 12-07-2021 14:25-0400 SaO2% (BldA) [Mass fraction] 100 % BMET-C Kamryn Posadasa BMET Work Phone: [facility] Work Phone: 12-07-2021 14:25-0400 Systolic blood pressure 132 mm[Hg] BMET-C Kamryn Posadasa BMET Work Phone: [facility] Work Phone: 12-05-2021 15:28-0400 Diastolic blood pressure 91 mm[Hg] Kamryn Posadasa Other Phone: [facility] 12-05-2021 15:28-0400 Heart rate 69 /min Kamryn Posadasa Other Phone: [facility] 12-05-2021 15:28-0400 Respiratory rate 18 /min Kamryn Posadasa Other Phone: [facility] 12-05-2021 15:28-0400 SaO2% (BldA) [Mass fraction] 98 % Kamryn Posadasa Other Phone: [facility] 12-05-2021 15:28-0400 Systolic blood pressure 133 mm[Hg] Kamryn Posadasa Other Phone: [facility] 12-05-2021 13:05-0400 Body height 170.1 cm Kamryn Posadasa Other Phone: [facility] 12-05-2021 13:05-0400 Body temperature 96.62 [degF] Kamryn Posadasa Other Phone: [facility] 12-05-2021 13:05-0400 Body weight 55.8 kg Kamryn Posadasa Other Phone: [facility] 12-04-2021 15:57-0400 Body height 167.64 cm Kamryn Gonzalez Work Phone: DH-Yvbswpfjqhgarz-Oz alisson Work Phone: 12-04-2021 15:57-0400 Body mass index (BMI) [Ratio] 19.91 kg/m2 Kamryn Gonzalez Work Phone: EX-Besxjjxgncydah-Ip ron Work Phone: 12-04-2021 15:57-0400 Body surface area Derived from formula 1.63 m2 Kamryn Gonzalez Work Phone: KE-Avragvigidmhzn-Tg ron Work Phone: 12-04-2021 15:57-0400 Body weight 55.97 kg Kamryn Gonzalez Work Phone: KJ-Tjeigcgwdyjnhr-Zp ron Work Phone: 11-29-2021 13:06-0500 Body height 167.64 cm Kamryn Gonzalez Work Phone: FJ-Btxgufupedzlsl-Dc idfermin Work Phone: 11-29-2021 13:06-0500 Body mass index (BMI) [Ratio] 20.19 kg/m2 Kamryn Gonzalez Work Phone: HJ-Ixqgrheozsebyv-Hs idman Work Phone: 11-29-2021 13:06-0500 Body surface area Derived from formula 1.64 m2 Kamryn Gonzalez Work Phone: IA-Ikewudfyuhbrbx-Ly idman Work Phone: 11-29-2021 13:06-0500 Body temperature 97.5 [degF] Kamryn Gonzalez Work Phone: SM-Zpjixrscatjtnq-Oa idman Work Phone: 11-29-2021 13:06-0500 Body weight 56.75 kg Kamryn Gonzalez Work Phone: BD-Cdmluyrxwkojgc-Ot idman Work Phone: 11-07-2021 17:58-0500 SaO2% (BldA) [Mass fraction] 100 % Kamryn Gonzalez Work Phone: DS-Fkdqdliqyhnukv-Hl alisson Work Phone: 11-07-2021 15:25-0500 SaO2% (BldA) [Mass fraction] 100 % Kamryn Gonzalez Work Phone: CX-Gfstafgnahplwh-Dj alisson Work Phone: 11-01-2021 08:16-0500 Body height 167.64 cm Kamryn Gonzalez Work Phone: QS-Zzkhvjldkbhbpx-Nl burban Work Phone: 11-01-2021 08:16-0500 Body mass index (BMI) [Ratio] 19.09 kg/m2 Kamryn Gonzalez Work Phone: DG-Nykjehuoccqmoq-Rd burban Work Phone: 11-01-2021 08:16-0500 Body surface area Derived from formula 1.6 m2 Kamryn Gonzalez Work Phone: WU-Qabkboofhghazp-Rj burban Work Phone: 11-01-2021 08:16-0500 Body temperature 95.5 [degF] Kamryn Gonzalez Work Phone: WG-Tlhjujxeveqxdy-Hz burban Work Phone: 11-01-2021 08:16-0500 Body weight 53.64 kg Kamryn Gonzalez Work Phone: MI-Htonacxewhqybo-Zp burban Work Phone: 10-16-2021 12:58-0500 Body height 167.64 cm Kamryn Gonzalez Work Phone: JF-Cgjglrvkdcmacd-Ru alisson Work Phone: 10-16-2021 12:58-0500 Body mass index (BMI) [Ratio] 20.34 kg/m2 Kamryn Gonzalez Work Phone: UN-Vilewmuigkdpnr-El ron Work Phone: 10-16-2021 12:58-0500 Body surface area Derived from formula 1.64 m2 Kamryn Gonzalez Work Phone: HS-Xtvsgmcoqmhpaz-Dp alisson Work Phone: 10-16-2021 12:58-0500 Body weight 57.15 kg Kamryn Gonzalez Work Phone: KD-Drnepjumpniyqu-Ds alisson Work Phone: 09-23-2021 00:06-0500 Body weight 58.96 kg BMET-C Kamryn Gonzalez BMET Work Phone: [facility] Work Phone: 08-23-2021 07:11-0500 Body mass index (BMI) [Ratio] 22.3 kg/m2 BMET-C Kamryn Gonzalez BMET Work Phone: [facility] Work Phone: 08-23-2021 07:11-0500 Body temperature 98 [degF] BMET-C Kamryn Gonzalez BMET Work Phone: [facility] Work Phone: 08-23-2021 07:11-0500 Body weight 58.96 kg BMET-C Kamryn Gonzalez BMET Work Phone: [facility] Work Phone: 08-23-2021 07:11-0500 Diastolic blood pressure 88 mm[Hg] BMET-C Kamryn Gonzalez BMET Work Phone: [facility] Work Phone: 08-23-2021 07:11-0500 Heart rate 95 /min BMET-C Kamryn Gonzalez BMET Work Phone: [facility] Work Phone: 08-23-2021 07:11-0500 Systolic blood pressure 152 mm[Hg] BMET-C Kamryn Gonzalez BMET Work Phone: [facility] Work Phone: 08-15-2021 09:45-0500 Body height 170.18 [...] 09:45-0500 SaO2% (BldA) [Mass fraction] 99 % Caridadcolumba Hufermin LEYVA [facility]; [facility] Work Phone: Comment on above: Room air 08-15-2021 09:45-0500 Systolic blood pressure 170 mm[Hg] Caridad Gomez [employer] [facility]; [...] Body mass index (BMI) [Ratio] 20 kg/m2 BMET-Damaris Gonzalez NP Work Phone: [facility] Work Phone: 12-02-2020 13:20-0500 BMI (Body Mass [...] Regular 12-02-2020 13:20-0500 Pulse Oximetry 100 % Kamryn Gonzalez [facility]; [facility] [...] air 11-28-2020 14:34-0500 Body temperature 98.6 [degF] BMET-C Kamryn Gonzalez BMET Work Phone: [facility] Work Phone: 11-28-2020 14:34-0500 Body weight 58.05 kg BMET-C Kamryn Gonzalez BMET Work Phone: [facility] Work Phone: 11-28-2020 14:34-0500 Diastolic blood pressure 84 mm[Hg] BMET-C Kamryn Posadasa BMET Work Phone: [facility] Work Phone: 11-28-2020 14:34-0500 Heart rate 76 /min BMET-C Kamryn Posadasa BMET Work Phone: [facility] Work Phone: 11-28-2020 14:34-0500 Respiratory rate 16 /min BMET-C Kamryn Posadasa BMET Work Phone: [facility] Work Phone: 11-28-2020 14:34-0500 SaO2% (BldA) [Mass fraction] 99 % BMET-C Kamryn Posadasa BMET Work Phone: [facility] Work Phone: 11-28-2020 14:34-0500 Systolic blood pressure 149 mm[Hg] BMET-C Kamryn Posadaschioma BMET Work Phone: [facility] Work Phone: 08-29-2020 14:50-0500 BMI (Body Mass Index) 23.02 kg/m2 [facility]; [facility] Work Phone: 08-29-2020 14:50-0500 Body weight 66.68 kg Xavier Ponce [facility]; [facility] Work Phone: 08-29-2020 14:50-0500 BSA (Body Surface Area) 1.77 m2 [facility]; [facility] Work Phone: 08-29-2020 14:50-0500 Height 170.18 cm [facility] Work Phone: 06-29-2020 13:46-0400 BMI (Body Mass Index) 23.02 kg/m2 Kamryn Browning Josefameganchioma [employer]CR[employer]PERATOR HELPER Work Phone: [facility] Work Phone: 06-29-2020 13:46-0400 Body Temperature 96.9 [degF] Kamryn Posadasa [employer]CR[employer]PER[employer] HELPER Work Phone: [facility] Work Phone: 06-29-2020 13:46-0400 Body weight 66.68 kg Kamryn Posadasa [employer]CR[employer]PERATOR HELPER Work Phone: [facility] Work Phone: 06-29-2020 13:46-0400 BP Diastolic 80 mm[Hg] Kamryn Browning Katharinaa [employer]CR[employer]E [employer] OPERATOR HELPER Work Phone: [facility] Work Phone: Comment on above: Patient Position: Supine; Cuff Location: Right Arm; Cuff Size: Standard 06-29-2020 13:46-0400 BP Systolic 132 mm[Hg] Kamryn Posadasa [employer]CR[employer]PER[employer] HELPER Work Phone: [facility] Work Phone: Comment on above: Patient Position: Supine; Cuff Location: Right Arm; Cuff Size: Standard 06-29-2020 13:46-0400 BSA (Body Surface Area) 1.77 m2 Kamryn Gonzalez [employer]PER[employer] HELPER Work Phone: [facility] Work Phone: 06-29-2020 13:46-0400 Height 170.18 cm Kamryn Gonzalez [employer]CR[employer]PERATOR HELPER Work Phone: [facility] Work Phone: 06-29-2020 13:46-0400 Pulse (Heart Rate) 82 /min Kamryn Gonzalez [employer]CR[employer]E [employer] OPERATOR HELPER Work Phone: [facility] Work Phone: Comment on above: Pattern: Regular 06-29-2020 13:46-0400 Pulse Oximetry 100 % Kamryn Gonzalez [facility] Work Phone: Comment on above: Room air 06-29-2020 13:46-0400 SaO2% (BldA) [Mass fraction] 100 % Kamryn Gonzalez [employer]CR[employer]E [employer]PERATOR HELPER Work Phone: [facility]; [facility] Work Phone: Comment on above: Room air 04-14-2020 13:54-0400 BMI (Body Mass Index) 23.02 kg/m2 Caridad Gomez 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 [facility] Work Phone: 04-14-2020 13:54-0400 Body weight 66.68 kg Caridadcolumba Gomez 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 [facility] Work Phone: 04-14-2020 13:54-0400 BSA (Body Surface Area) 1.77 m2 Caridad Gomez [employer]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 [facility] Work Phone: 04-14-2020 13:54-0400 Height 170.18 cm Caridadcolumba Gomez [employer]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 [facility] Work Phone: 12-14-2019 11:11-0400 Body Temperature 97.7 [degF] Kamryn Gonzalez [employer]CR[employer]E [employer]PERATOR HELPER Work Phone: [facility] Work Phone: 12-14-2019 10:50-0400 BMI (Body Mass Index) 23.02 kg/m2 Xavier Ponce [facility] Work Phone: 12-14-2019 10:50-0400 Body weight 66.68 kg Xavier Ponce [facility] Work Phone: 12-14-2019 10:50-0400 BSA (Body Surface Area) 1.77 m2 Xavier [facility] Work Phone: 12-14-2019 10:50-0400 Height 170.18 cm Xavier [facility] Work Phone: 06-15-2019 17:18-0400 BMI (Body Mass Index) 20.26 kg/m2 Rachel Brooks NG-Foocswmmftxrij-Tg min [place] [address] Work Phone: 06-15-2019 17:18-0400 Body weight 56.93 kg Rachel Brooks MG-Otolaryngolog y-Ad min [place] [address] Work Phone: 06-15-2019 17:18-0400 BP Diastolic 77 mm[Hg] Rachel Brooks MG-Otolaryngolog y-Ad min [place] [address] Work Phone: 06-15-2019 17:18-0400 BP Systolic 145 mm[Hg] Rachel Brooks MG-Otolaryngolog y-Ad min [place] [address] Work Phone: 06-15-2019 17:18-0400 BSA (Body Surface Area) 1.64 m2 Rachel Brooks QL-Pdjvsgbltzzziw-Dp min [place] [address] Work Phone: 06-15-2019 17:18-0400 Height 167.64 cm Rachel Brooks MG-Otolaryngolog y-Ad min [place] [address] Work Phone: 06-15-2019 17:18-0400 Pulse (Heart Rate) 82 /min Rachel Brooks MG-Otolaryngo logy-Ad min [place] [address] Work Phone: 06-15-2019 17:18-0400 Respiratory Rate 18 /min Rachel Brooks MG-Otolaryngolo gy-Ad min [place] [address] Work Phone: 01-19-2019 11:54-0400 BMI (Body Mass Index) 22.84 kg/m2 Rachel Brooks OE-Plxkawaparwqhu-Xr min [place] [address] Work Phone: 01-19-2019 11:54-0400 BP Diastolic 87 mm[Hg] Rachel Brooks MG-Otolaryngolog y-Ad min [place] [address] Work Phone: 01-19-2019 11:54-0400 BP Systolic 180 mm[Hg] Rachel Brooks MG-Otolaryngolog y-Ad min [place] [address] Work Phone: 01-19-2019 11:54-0400 BSA (Body Surface Area) 1.73 m2 Rachel Brooks ZD-Bfdgqxirumqwzw-Uo min [place] [address] Work Phone: 01-19-2019 11:54-0400 Height 167.64 cm Rachel Brooks MG-Otolaryngolog y-Ad min [place] [address] Work Phone: 01-19-2019 11:54-0400 Pulse (Heart Rate) 91 /min Rachel Brooks MG-Otolaryngo logy-Ad min [place] [id number] Work Phone: 01-19-2019 11:54-0400 Weight 64.18 kg Rachel Brooks MG-Otolaryngolog y-Ad min [place] [address] Work Phone: 01-02-2019 11:29-0400 BMI (Body Mass Index) 23.02 kg/m2 Xavier Ponce LPN [facility] Work Phone: 01-02-2019 11:29-0400 Body Temperature 99 [degF] Xavier Ponce LPN [facility] Work Phone: Comment on above: Method: Temporal 01-02-2019 11:29-0400 Body weight 66.68 kg Xavier Ponce LPN [facility] Work Phone: 01-02-2019 11:29-0400 BP Diastolic 82 mm[Hg] Xavier Ponce LPN [facility] Work Phone: Comment on above: Patient Position: Sitting; Cuff Location : Left Arm; Cuff Size: Standard 01-02-2019 11:29-0400 BP Systolic 144 mm[Hg] Xavier Ponce LPN [facility] Work Phone: Comment on above: Patient Position: Sitting; Cuff Location : Left Arm; Cuff Size: Standard 01-02-2019 11:29-0400 BSA (Body Surface Area) 1.77 m2 Xavier Ponce LPN [facility] Work Phone: 01-02-2019 11:29-0400 Height 170.18 cm Xavier Ponce LPN [facility] Work Phone: 01-02-2019 11:29-0400 Pulse (Heart Rate) 80 /min Xavier Ponce LPN [facility] Work Phone: Comment on above: Pattern: Regular 01-02-2019 11:29-0400 Pulse Oximetry 98 % Kamryn Monica [facility] Work Phone: Comment on above: Room air 01-02-2019 11:29-0400 Respiratory Rate 17 /min Xavier Ponce LPN [facility] Work Phone: Comment on above: Pattern: Unlabored 01-02-2019 11:29-0400 SaO2% (BldA) [Mass fraction] 98 % Xavier Ponce LPN [facility]; [facility] Work Phone: Comment on above: Room air 01-02-2019 11:29-0400 Weight 66.68 kg Kamryn Riverodanya [facility] Work Phone: 12-15-2018 14:23-0400 BMI (Body Mass Index) 23.02 kg/m2 Xavier Ponce LPN [facility] Work Phone: 12-15-2018 14:23-0400 Body Temperature 98.7 [degF] Xavier Ponce LPN [facility] Work Phone: Comment on above: Method: Temporal 12-15-2018 14:23-0400 Body weight 66.68 kg Xavier Ponce LPN [facility] Work Phone: 12-15-2018 14:23-0400 BP Diastolic 82 mm[Hg] Xavire Ponce 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 [facility] Work Phone: Comment on above: Patient Position: Sitting; Cuff Location : Left Arm; Cuff Size: Standard 12-15-2018 14:23-0400 BP Systolic 160 mm[Hg] Xavier Kris [facility] Internal Medicine Work Phone: Comment on above: Patient Position: Sitting; Cuff Location : Left Arm; Cuff Size: Standard 12-15-2018 14:23-0400 BSA (Body Surface Area) 1.77 m2 Xavier Ponce 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 [facility] Work Phone: 12-15-2018 14:23-0400 Height 170.18 cm Xavier Ponce 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 [facility] Work Phone: 12-15-2018 14:23-0400 Pulse (Heart Rate) 80 /min Xavier Ponce LPN [facility] Work Phone: Comment on above: Pattern: Regular 12-15-2018 14:23-0400 Pulse Oximetry 98 % Kamryn Monica [facility] Work Phone: Comment on above: Room air 12-15-2018 14:23-0400 Respiratory Rate 18 /min Xavier Ponce LPN [facility] Work Phone: Comment on above: Pattern: Unlabored 12-15-2018 14:23-0400 SaO2% (BldA) [Mass fraction] 98 % Xavier Ponce 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 [facility]; [facility] Work Phone: Comment on above: Room air 12-15-2018 14:23-0400 Weight 66.68 kg Kamryn Gonzalez [facility] Work Phone: Encounters Encounter Date Encounter Type Care Provider Facility Start: 07-08-2025 End: 07-08-2025 Subsequent hospital visit by physician [address] [facility] Comment on above: 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) Start: 07-05-2025 End: 07-05-2025 ambulatory Sadie Santiago Facility:[facility] Start: 06-30-2025 End: 06-30-2025 Subsequent hospital visit by physician Mac Sheriff [facility] Comment on above: Adverse effect of ra diation, sequela; Other disorders of arteries, arterioles and capillaries in diseases classified elsewhere Start: 06-30-2025 End: 06-30-2025 ambulatory [facility] Start: 06-28-2025 ambulatory Sadie Santiago Facility :[facility] Start: 06-10-2025 End: 06-10-2025 Office outpatient visit 40 minutes Dayami Jha MD Work Phone: [facility] Comment on above: History of malignant neoplasm of oral cavity (Primary Dx); 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 Santiago Sellers DO -Speech Therapy Work Phone: Start: 05-07-2025 In-person encounter Roman eli MD Work Phone: [facility] Work Phone: Start: 05-07-2025 Visit out of hours Roman seay MD Work Phone: [employer] [facility]. Work Phone: Start: 04-15-2025 Non-patient / Non-visit Elliott Mijares nd DO -[facility] Start: 04-15-2025 End: 04-15-2025 Admission to same day surgery center Elliott Akhtar DO -Endoscopy Work Phone: Start: 04-15-2025 End: 04-15-2025 ambulatory Sadie Santiago [facility] Work Phone: -Endoscopy Start: 03-31-2025 ambulatory Sadie [place] Facility :[facility] Start: 03-31-2025 Non-patient / Non-visit Dr. Loretta villar MD [facility] Start: 03-31-2025 End: 03-31-2025 ambulatory Sadie Santiago [facility] Work Phone: -Pulmonary Services/Neurology Start: 03-31-2025 End: 03-31-[address] James Stephens DO -Pulmonary Services/Neurology Work Phone: Start: 03-31-2025 End: 03-31-2025 ambulatory [facility] Facility:[facility] Start: 03-25-[address] Santiago Sellers DO -Speech Therapy Work Phone: Start: 03-03-2025 [facility] Facility :[facility] Start: 03-03-2025 Non-patient / Non-visit Dr. Loretta villar MD [facility] Start: 03-03-2025 End: 03-03-2025 ambulatory Sadie Santiago [facility] Work Phone: [facility] Work Phone: Start: 03-03-2025 End: 03-03-[address] 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 Work Phone: Start: 02-11-2025 End: 02-11-2025 ambulatory Sadie Santiago Facility:[facility] Start: 02-02-2025 End: 02-20-[address] Santiago Sellers DO -Nutritional Services Work Phone: Start: 02-02-2025 End: 02-20-2025 ambulatory Sadie Santiago [facility] Work Phone: [facility] Work Phone: Start: 02-02-2025 End: 02-02-[address] Santiago Sellers DO [facility] Work Phone: Start: 02-02-2025 End: 02-02-2025 ambulatory Sadie Santiago [facility] Work Phone: [facility] Work Phone: Start: 01-20-[address] Santiago DUFFSpeech Therapy Work Phone: Start: 01-05-2025 End: 01-05-[address] Quincy Simpson MD -[facility] Work Phone: Start: 01-05-2025 End: 01-05-2025 ambulatory Sadie Santiago Facility:[facility] Start: 12-30-[address] Santiago DUFFSpeech Therapy Work Phone: Start: 12-29-2024 End: 12-29-2024 ambulatory Sadie Santiago [facility] Work Phone: [facility] Work Phone: Start: 12-29-2024 End: 12-29-[address] Quincy Simpson MD -[facility] Work Phone: Start: 12-29-2024 End: 12-29-2024 ambulatory Quincy Simpson Facility:[facility] Start: 12-17-2024 End: 12-17-[address] Quincy Simpson MD Work Phone: [facility] Work Phone: Start: 12-17-2024 End: 12-17-[address] Santiago Sellers DO -Radiology, [facility] Work Phone: Start: 12-17-2024 End: 12-17-2024 ambulatory Santiago Sellers Facility:[facility] Start: 12-16-[address] Santiago Sellers DO -Speech Therapy Work Phone: Start: 10-21-2024 ambulatory [facility] Facility :[facility] Start: 10-21-2024 Non-patient / Non-visit Elliott Mijares nd DO -[facility] Start: 10-21-2024 End: 10-21-2024 Admission to same day surgery center Elliott Akhtar DO -Endoscopy Work Phone: Start: 10-21-2024 End: 10-21-2024 ambulatory [facility] Facility:[facility] Start: 10-20-2024 Encounter for other preprocedural examination Loretta Jade [facility] Start: 09-28-2024 End: 09-28-[address] Quincy Simpson MD -[facility] Work Phone: Start: 09-28-2024 End: 09-28-2024 ambulatory [facility] Facility:[facility] Start: 09-15-2024 ambulatory Loretta Jade Facilit y:[facility] Start: 09-15-2024 Non-patient / Non-visit Loretta Jade [facility] -[facility] Start: 09-15-2024 End: 09-15-[address] Quincy Simpson MD -Cat Scan, [facility] Work Phone: Start: 09-15-2024 End: 09-15-2024 ambulatory Sadie [place] Facility:[facility] Start: 09-07-2024 End: 09-07-[address] 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 Quincy Simpson MD -Cat Scan, [facility] Work Phone: Start: 08-25-2024 End: 08-25-2024 ambulatory [facility] Facility:[facility] Start: 08-14-2024 End: 08-14-2024 ambulatory [facility] Facility:[facility] Start: 08-06-2024 End: 08-22-2024 ambulatory [facility] Facility:[facility] Start: 08-06-2024 End: 08-06-2024 ambulatory [facility] Facility:[facility] Start: 04-13-2024 End: 04-13-2024 Office outpatient visit 25 minutes Rachel Brooks MD Work Phone: [facility] Comment on above: Oropharyngeal dyspha lizzie (Primary Dx); Sensorineural hearing loss (SNHL) of both ears; Acquired hypothyroidism; Cancer of oral cavity (Multi); 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); Adverse effect of radiation therapy, subsequent encounter; Tracheostomy dependence (Multi) Start: 02-03-2024 End: 02-03-2024 Office outpatient visit 25 minutes Rachel Brooks MD Work Phone: [facility] Comment on above: Oropharyngeal dyspha lizzie (Primary Dx); Sensorineural hearing loss (SNHL) of both ears; Cancer of oral cavity (Multi); 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); Adverse effect of radiation therapy, subsequent encounter Start: 11-01-2023 End: 11-01-2023 ambulatory [facility]C Kamryn Gonzalez BMET Work Phone: [facility] Work Phone: Start: 11-01-2023 End: 11-01-2023 Discharged Recurring BMET-C Kamryn Gonzalez BMET Work Phone: [facility]-Speech Therapy Work Phone: Start: 09-03-2023 Non-patient / Non-visit [facility]-C Mack Gonzalez BMET Work Phone: [facility] Start: 09-03-2023 End: 09-03-2023 Admission to same day surgery center BMET-C Kamryn Gonzalez BMET Work Phone: [facility]-Endoscopy Work Phone: Start: 09-03-2023 End: 09-03-2023 ambulatory [facility]C Kamryn Gonzalez BMET Work Phone: [facility] Work Phone: Start: 09-02-2023 End: 09-02-2023 Office outpatient visit 25 minutes Rachel Brooks MD Work Phone: [facility] Comment on above: Acquired hypothyroid ism (Primary Dx); Oropharyngeal dysphagia; 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); Cancer of oral cavity (CMS/HCC) Start: 08-30-2023 End: 08-30-2023 Patient encounter procedure [facility]ET[facility]C Kamryn Gonzalez BMET Work Phone: [facility] Gastroenterology Work Phone: Start: 08-05-2023 End: 08-05-2023 Patient encounter procedure [facility]ET[facility]C Kamryn Gonzalez BMET Work Phone: [facility]-Radiology, [facility] Work Phone: Start: 08-05-2023 End: 08-05-2023 Patient encounter procedure [facility]-C aKmryn Gonzalez BMET Work Phone: [facility] Work Phone: Start: 07-29-2023 End: 07-29-2023 ambulatory [facility]-C Kamryn Gonzalez BMET Work Phone: [facility] Work Phone: Start: 07-29-2023 End: 07-29-2023 Patient encounter procedure [facility]C Kamryn Gonzalez BMET Work Phone: [facility] Work Phone: Start: 07-22-2023 End: 07-24-2023 Office outpatient visit 15 minutes Sadie Santiago [employer] HEL[employer] Work Phone: [facility] Start: 07-22-2023 Sadie Santiago [employer]CR[employer]E [employer] OPERATOR HELPER Work Phone: [facility] Start: 07-10-2023 Registered Recurring BMET-C Kamryn Katharinachioma BMET Work Phone: [facility]-Speech Therapy Work Phone: Start: 05-22-2023 End: 05-22-2023 Patient encounter procedure [facility]ET[facility]C Kamryn Gonzalez BMET Work Phone: [facility] Work Phone: Start: 04-25-2023 Patient encounter procedure Kamryn Gonzalez Work Phone: [facility] Work Phone: Start: 04-25-2023 ambulatory Ms. Kamryn Gonzalez Facili ty:[id number] Start: 04-12-2023 End: 04-12-2023 Sadie Santiago [employer]CR[employer]E [employer] OPERATOR HELPER Work Phone: [facility] Start: 04-10-2023 Non-patient / Non-visit BMET-C Mack Gonzalez BMET Work Phone: [facility] Start: 04-10-2023 Registered Recurring BMET-C Kamryn Josefadanya BMET Work Phone: [facility]-Speech Therapy Work Phone: Start: 04-10-2023 End: 04-10-2023 ambulatory BMET-C Kamryn Gonzalez BMET Work Phone: [facility] Work Phone: Start: 04-10-2023 End: 04-10-2023 Discharged Recurring BMET-C Kamryn Gonzalez BMET [facility] Work Phone: Start: 04-04-2023 Patient encounter procedure Kamryn Gonzalez Work Phone: [facility]smd Work Phone: Start: 04-04-2023 ambulatory Ms. Kamrny Gonzalez [facility] ty:[id number] Start: 04-03-2023 Non-patient / Non-visit BMET-C Mack Riveroesa BMET Work Phone: [facility] Start: 03-27-2023 Non-patient / Non-visit BMET-C M golry Ciesa BMET Work Phone: [facility] Start: 03-20-2023 Non-patient / Non-visit BMET-C Mack holder Ciesa BMET Work Phone: [facility] Start: 03-20-2023 End: 03-22-2023 ambulatory [facility]ET-C Kamryn Posadasa BMET Work Phone: [facility] Work Phone: Start: 03-20-2023 End: 03-22-2023 Discharged Recurring BMET-C Kamryn Gonzalez BMET Work Phone: [facility] Work Phone: Start: 03-14-2023 Patient encounter procedure Kamryn Gonzalez Work Phone: FC-Akwsgqvybvhlsp-Vrfer Work Phone: Start: 03-14-20[address] Mr[address] Segundo Chamorro Facility:[id number] Start: 03-13-2023 Non-patient / Non-visit BMET-C M glory Ciesa BMET Work Phone: [facility] Start: 03-06-2023 Non-patient / Non-visit BMET-C M glory Ciesa BMET Work Phone: [facility] Start: 03-06-2023 Office outpatient ne w 30 minutes Kamryn Posadasa Work Phone: FI-Kdmwiunqqvtudi-Eudnp Work Phone: Start: 03-06-[address] aRchel Brooks Facility:[id number] Start: 02-27-2023 Non-patient / Non-visit BMET-C M glory Ciesa BMET Work Phone: [facility] Start: 02-25-2023 Office outpatient vi sit 15 minutes Kamryn Posadasa Work Phone: FF-Aqlktorphrddzh-[facility] rg Work Phone: Start: 02-25-2023 Patient encounter procedure Archana Ciesa Work Phone: VC-Xawagtkcbnnwam-Kaqnwcq rg Work Phone: Start: 02-25-[address] Rachel Brooks Facility:[id number] Start: 02-20-2023 Non-patient / Non-visit BMET-C Mack glory Ciesa BMET Work Phone: [facility] Start: 02-20-2023 End: 02-20-2023 ambulatory BMET-C Kamryn Riveroesa BMET Work Phone: [facility] Work Phone: Start: 02-20-2023 End: 02-20-2023 Discharged Recurring BMET-C Kamryn Riveroesa BMET Work Phone: [facility] Start: 02-13-2023 Non-patient / Non-visit BMET-C M glory Ciesa BMET Work Phone: [facility] Start: 02-06-2023 Non-patient / Non-visit BMET-C Mack Gonzalez BMET Work Phone: [facility] Start: 01-31-2023 End: 01-31-2023 Patient encounter procedure BMET-C Kamryn Gonzalez BMET Work Phone: [facility] Start: 01-30-2023 Non-patient / Non-visit BMET-C Mack Posadasa BMET Work Phone: [facility] Start: 01-30-2023 Registered Recurring BMET-C Kamryn Gonzalez BMET [facility] Phone[facility] Start: 01-28-[address] Rachel M[facility]:[id number] Start: 01-28-2023 End: 01-28-2023 ambulatory BMET-C Kamryn Gonzalez BMET Work Phone: [facility] Work Phone: Start: 01-28-2023 End: 01-28-2023 Patient encounter procedure Kamryn Gonzalez Work Phone: [facility] Start: 01-23-2023 Non-patient / Non-visit BMET-C Mack Posadasa BMET Work Phone: [facility] Start: 01-21-2023 End: 01-21-2023 Sadie Santiago CNP Work Phone: [facility] Start: 01-16-2023 ambulatory Sadie Santiago CNP Comp [facility] Med Start: 01-16-2023 Non-patient / Non-visit BMET-C Mack Posadasa BMET Work Phone: [facility] Start: 01-16-2023 End: 01-21-2023 Office outpatient visit 15 minutes Sadie Santiago CNP Work Phone: [facility] Start: 01-16-2023 Sadie Santiago CNP Work Phone: [facility] Start: 01-16-2023 End: 01-20-2023 ambulatory BMET-C Kamryn Gonzalez BMET Work Phone: [facility] Work Phone: Start: 01-16-2023 End: 01-20-2023 Discharged Recurring BMET-C Kamryn Gonzalez BMET [facility] Phone[facility] Start: 01-09-2023 Non-patient / Non-visit BMET-C M glory Ciesa BMET Work Phone: [facility] Start: 01-02-2023 Non-patient / Non-visit BMET-C M glory Ciesa BMET Work Phone: [facility] Start: 12-26-2022 Registered Recurring BMET-C Kamryn Posadasa BMET Work Phone: [facility]-Speech Therapy Start: 12-26-2022 Non-patient / Non-visit BMET-C M glory Ciesa BMET Work Phone: [facility] Start: 12-12-2022 Non-patient / Non-visit BMET-C M glory Ciesa BMET Work Phone: [facility] Start: 12-12-2022 End: 12-21-2022 ambulatory BMET-C Kamryn Gonzalez BMET Work Phone: [facility] Work Phone: Start: 12-12-2022 End: 12-21-2022 Discharged Recurring BMET-C Kamryn Cimegana BMET Work Phone: [facility] Start: 12-05-2022 Non-patient / Non-visit BMET-C M glory Ciesa BMET Work Phone: [facility] Start: 11-28-2022 Non-patient / Non-visit BMET-C M glory Ciesa BMET Work Phone: [facility] Start: 11-21-2022 Registered Recurring BMET-C Kamryn Gonzalez BMET Work Phone: [facility] Start: 11-21-2022 End: 11-21-2022 Patient encounter procedure BMET-C Kamryn Gonzalez BMET Work Phone: [facility] Start: 11-14-2022 Non-patient / Non-visit BMET-C M glory Posadasa BMET Work Phone: [facility] Start: 11-14-2022 End: 11-20-2022 ambulatory BMET-C Kamryn Gonzalez BMET Work Phone: [facility] Work Phone: Start: 11-14-2022 End: 11-20-2022 Discharged Recurring BMET-C Kamryn Gonzalez BMET [facility] Start: 11-07-2022 Non-patient / Non-visit BMET-C M glory Posadasa BMET Work Phone: [facility] Start: 11-01-2022 End: 11-01-2022 Patient encounter procedure BMET-C Kamryn Posadaschioma BMET Work Phone: [facility] Start: 10-24-2022 Non-patient / Non-visit BMET-C M glory Posadasa BMET Work Phone: [facility] Start: 10-10-2022 Non-patient / Non-visit BMET-C M glory Posadasa BMET Work Phone: [facility] Start: 10-10-2022 End: 10-23-2022 ambulatory BMET-C Kamryn Josefadanya BMET Work Phone: [facility] Work Phone: Start: 10-10-2022 End: 10-23-2022 Discharged Recurring BMET-C Kamryn Josefaesa BMET [facility] Start: 10-03-2022 Non-patient / Non-visit BMET-C M glory Ciesa BMET Work Phone: [facility] Start: 09-26-2022 Registered Recurring BMET-C Kamryn Ciesa BMET Work Phone: [facility]-Speech Therapy Start: 09-19-2022 Non-patient / Non-visit BMET-C M glory Ciesa BMET Work Phone: [facility] Start: 09-19-2022 End: 09-22-2022 Discharged Recurring BMET-C Kamryn Riveroesa BMET Work Phone: [facility] Start: 09-12-2022 Non-patient / Non-visit BMET-C M glory Ciesa BMET Work Phone: [facility] Start: 09-05-2022 Non-patient / Non-visit BMET-C M glory Ciesa BMET Work Phone: [facility] Start: 08-29-2022 Non-patient / Non-visit BMET-C M glory Ciesa BMET Work Phone: [facility] Start: 08-22-2022 Non-patient / Non-visit BMET-C M glory Ciesa BMET Work Phone: [facility] Start: 08-22-2022 End: 08-22-2022 Discharged Recurring BMET-C Kamryn Riveroesa BMET Work Phone: [facility] Start: 08-15-2022 Non-patient / Non-visit BMET-C M glory Ciesa BMET Work Phone: [facility] Start: 08-08-2022 Non-patient / Non-visit BMET-C M glory Ciesa BMET Work Phone: [facility] Start: 08-07-2022 Chart Update Kamryn Gonzalez Work Phone: HM-Omuyqtzgbsxqlw-Lspwp [place] [address] Work Phone: Start: 08-01-2022 Non-patient / Non-visit BMET-C M glory Ciesa BMET Work Phone: [facility] Start: 07-31-2022 End: 07-31-2022 Patient encounter procedure BMET-C Kamryn Josefamegana BMET Work Phone: [facility] Start: 07-24-2022 End: 07-24-2022 ambulatory BMET-C Kamryn Posadasa BMET Work Phone: [facility] Work Phone: Start: 07-24-2022 End: 07-24-2022 Patient encounter procedure BMET-C Kamryn Posadasa BMET Work Phone: [facility] Start: 07-18-2022 Non-patient / Non-visit BMET-C M glory Ciesa BMET Work Phone: [facility] Start: 07-18-2022 End: 07-23-2022 ambulatory BMET-C Kamryn Posadasa BMET Work Phone: [facility] Work Phone: Start: 07-18-2022 End: 07-23-2022 Discharged Recurring BMET-C Kamryn Posadasa BMET [facility] Phone[facility] Start: 07-04-2022 Registered Recurring BMET-C Kamryn Josefamegana BMET Work Phone: [facility]-Speech Therapy Start: 07-04-2022 Non-patient / Non-visit BMET-C M glory Ciesa BMET Work Phone: [facility] Start: 06-27-2022 Non-patient / Non-visit BMET-C M glory Ciesa BMET Work Phone: [facility] Start: 06-21-2022 AUDIT Kamryn Gonzalez Work Phone: AM-Axpicbjouobqzq-Qnvnc [place] [address] Work Phone: Start: 06-21-2022 Chart Update Kamryn Gonzalez Work Phone: KF-Fxneevbypmuvcy-Vnsoi [place] [address] Work Phone: Start: 06-20-2022 Non-patient / Non-visit BMET-C Mack Posadasa BMET Work Phone: [facility] Start: 06-20-2022 Registered Recurring BMET-C Kamryn Posadasa BMET [facility] Phone[facility] Start: 06-20-2022 End: 2022 Discharged Recurring BMET-C Kamryn Posadasa BMET [facility] Phone[facility] Start: 06-20-2022 Registered Recurring BMET-C Kamryn Posadasa BMET Work Phone[facility] [place] Start: 06-18-[address] Rachel Mancia [place] Facility:[id number] Start: 06-18-2022 Office outpatient vi sit 15 minutes Kamryn Browning Monica Work Phone: RP-Ffttjgbleobhuj-Mjrwr Work Phone: Start: 06-15-2022 End: 06-15-2022 ambulatory BMET-C Kamryn Posadasa BMET Work Phone: [facility] Work Phone: Start: 06-15-2022 End: 06-15-2022 Patient encounter procedure BMET-C Kamryn Posadasa BMET Work Phone: [facility], [facility] Start: 06-13-2022 Non-patient / Non-visit BMET-C Mack Riveroesa BMET Work Phone: [facility] Start: 06-06-2022 Non-patient / Non-visit BMET-C M glory Ciesa BMET Work Phone: [facility] Start: 05-30-2022 Non-patient / Non-visit BMET-C M glory Ciesa BMET Work Phone: [facility] Start: 05-23-2022 Non-patient / Non-visit BMET-C M glory Ciesa BMET Work Phone: [facility] Start: 05-23-2022 End: 05-23-2022 Patient encounter procedure BMET-C Kamryn Gonzalez BMET Work Phone: [facility] Start: 05-23-2022 Registered Recurring BMET-C Kamryn Riverodanya BMET Work Phone: [facility] On[facility] Start: 05-23-2022 End: 05-23-2022 ambulatory BMET-C Kamryn Josefadanya BMET Work Phone: [facility] Work Phone: Start: 05-23-2022 End: 05-23-2022 Discharged Recurring BMET-C Kamryn Riverodanya BMET Work Phone[facility] Start: 05-16-2022 AUDIT Kamryn Gonzalez Work Phone: BX-Yqeptiyceqcgco-Keqmtvi Work Phone: Start: 05-16-2022 Non-patient / Non-visit BMET-C M glory Ciesa BMET Work Phone: [facility] Start: 05-14-[address] Rachel Brooks Facility:[id number] Start: 05-14-2022 Office outpatient vi sit 15 minutes Kamryn Gonzalez Work Phone: ML-Wkfvmqxybktekc-Mcank Work Phone: Start: 05-09-2022 Non-patient / Non-visit BMET-C M glory Ciesa BMET Work Phone: [facility] Start: 05-08-2022 Registered Recurring BMET-C Kamryn Posadasa BMET Work Phone: [facility]-Speech Therapy Start: 05-02-2022 Non-patient / Non-visit BMET-C Mack holder Ciesa BMET Work Phone: [facility] Start: 04-30-2022 End: 04-30-2022 Patient encounter procedure BMET-C Kamryn Posadasa BMET Work Phone: [facility] Start: 04-25-2022 Non-patient / Non-visit BMET-C M glory Ciesa BMET Work Phone: [facility] Start: 04-17-2022 Registered Recurring BMET-C Kamryn Posadasa BMET Work Phone: [facility]Speech Therapy Start: 04-16-2022 Postop follow up vis it related to original px Kamryn Posadaschioma Work Phone: TW-Qhddwdmqvwylsb-Yuzwo Work Phone: Start: 04-13-2022 End: 04-13-2022 Patient encounter procedure BMET-C Kamryn Gonzalez BMET Work Phone: [facility], [facility] Start: 04-11-2022 Chart Update Kamryn Gonzalez Work Phone: UV-Raxxlzlhbjhxej-Urnrwde Work Phone: Start: 03-28-2022 End: 04-22-2022 Discharged Recurring BMET-C Kamryn Posadasa BMET [facility] Phone[facility] Start: 03-28-2022 Registered Recurring BMET-C Kamryn Posadasa BMET Work Phone[facility] Start: 03-27-2022 End: 03-27-2022 Patient encounter procedure BMET-C Kamryn Posadasa BMET Work Phone: [facility] Start: 03-14-2022 Registered Recurring BMET-C Kamryn Gonzalez BMET Work Phone: [facility]Speech Therapy Start: 02-27-2022 End: 02-27-2022 Patient encounter procedure BMET-C Kamryn Gonzalez BMET Work Phone: [facility] Start: 02-26-2022 End: 02-26-2022 Annotation/Addendum Kamryn Posadasa Work Phone: [facility] Start: 02-26-2022 End: 02-26-2022 Sadie Santiago CONCRETE PUMP OPERATOR HELPER Work Phone: [facility] Start: 02-22-2022 Review Kamryn Gonzalez Work Phone: [facility] Start: 02-16-2022 End: 02-16-2022 Annotation/Addendum Kamryn Posadasa Work Phone: [facility] Start: 02-16-2022 End: 02-16-2022 Sadie Santiago CONCRETE PUMP OPERATOR HELPER Work Phone: [facility] Start: 02-15-2022 End: 02-15-2022 Office outpatient visit 25 minutes Kamryn Gonzalez Work Phone: [facility] Start: 02-14-2022 End: 02-14-2022 Patient encounter procedure BMET-C Kamryn Gonzalez BMET Work Phone: [facility] Start: 02-12-2022 Office outpatient vi sit 15 minutes Kamryn Gonzalez Work Phone: OU-Jxryuaiquulfwm-Zejyb [place] [address] Work Phone: Start: 02-12-2022 Patient encounter procedure Kamryn Gonzalez Work Phone: UK-Bkgnfptmahxhdf-Xigdn Work Phone: Start: 02-06-2022 Registered Recurring BMET-C Kamryn Gonzalez BMET Work Phone: [facility]-Radiation Oncology Start: 02-06-2022 End: 02-06-2022 Patient encounter procedure BMET-C Kamryn Posadasa BMET Work Phone: [facility] Start: 01-31-2022 End: 01-31-2022 Patient encounter procedure BMET-C Kamryn Posadasa BMET Work Phone: [facility] Start: 01-25-2022 Non-patient / Non-visit BMET-C M glory Ciesa BMET Work Phone: [facility] Inpatient Physicians Start: 01-25-2022 Registered Recurring BMET-C Kamryn Posadasa BMET Work Phone: [facility] Start: 01-24-2022 Non-patient / Non-visit BMET-C M glory Ciesa BMET Work Phone: [facility] In[facility] Physicians Start: 01-24-2022 End: 01-24-2022 Patient encounter procedure BMET-C Kamryn Posadasa BMET Work Phone: [facility] Start: 01-23-2022 Non-patient / Non-visit BMET-C M glory Ciesa BMET Work Phone: [facility] Inpatient Physicians Start: 01-23-2022 Registered Recurring BMET-C Kamryn Josefamegana BMET Work Phone: [facility] Start: 01-22-2022 Non-patient / Non-visit BMET-C M glory Ciesa BMET Work Phone: [facility] Inpatient Physicians Start: 01-22-2022 End: 01-25-2022 Evaluation and management of inpatient BMET-C Kamryn Riverodanya BMET Work Phone: [facility]-Progressive Care Unit Start: 01-17-2022 Registered Recurring BMET-C Kamryn Gonzalez BMET Work Phone: [facility]-Speech Therapy Start: 01-17-2022 End: 01-17-2022 Patient encounter procedure BMET-C Kamryn Gonzalez BMET Work Phone: [facility] Start: 01-15-2022 Patient encounter procedure Kamryn Gonzalez Work Phone: HR-Lqipflzmeiuwcn-Nipas Work Phone: Start: 01-15-2022 Postop follow up vis it related to original px Kamryn Gonzalez Work Phone: XC-Jzopjmitgazuhw-Iwtyz [place] [address] Work Phone: Start: 01-12-2022 Registered Recurring BMET-C Kamryn Posadasa BMET Work Phone: [facility]Radiation Oncology Start: 01-10-2022 Registered Recurring BMET-C Kamryn Gonzalez BMET Work Phone: [facility]Speech Therapy Start: 01-10-2022 End: 01-10-2022 Patient encounter procedure BMET-C Kamryn Gonzalez BMET Work Phone: [facility] Start: 01-10-2022 End: 01-10-2022 Patient encounter procedure BMET-C Kamryn Posadasa BMET Work Phone: [facility] Start: 01-08-2022 End: 01-08-2022 Patient encounter procedure BMET-C Kamryn Gonzalez BMET Work Phone: [facility]-Radiology, [facility] Start: 01-04-2022 End: 01-04-2022 Patient encounter procedure BMET-C Kamryn Gonzalez BMET Work Phone: [facility] Start: 01-03-2022 End: 01-03-2022 Patient encounter procedure BMET-C Kamryn Gonzalez BMET Work Phone: [facility] Start: 12-29-2021 Patient encounter procedure Kamryn Gonzalez Work Phone: PP-Hgftlvhhgieqyv-Avwxwbn Work Phone: Start: 12-27-2021 End: 12-27-2021 Patient encounter procedure BMET-C Kamryn Gonzalez BMET Work Phone: [facility] Start: 12-22-2021 Registered Recurring BMET-C Kamryn Posadasa BMET Work Phone: [facility] Start: 12-21-2021 Registered Recurring BMET-C Kamryn Posadasa BMET Work Phone: [facility] Start: 12-20-2021 Registered Recurring BMET-C Kamryn Posadasa BMET Work Phone: [facility]-Speech Therapy Start: 12-20-2021 End: 12-20-2021 Patient encounter procedure BMET-C Kamryn Posadasa BMET Work Phone: [facility] Start: 12-19-2021 End: 12-19-2021 Annotation/Addendum Kamryn Gonzalez Work Phone: [facility] Start: 12-19-2021 End: 12-19-2021 Sadie Jack CONCRETE PUMP OPERATOR HELPER Work Phone: [facility] Start: 12-18-2021 Postop follow up vis it related to original px Kamryn Gonzalez Work Phone: BE-Ryuylqoxweeagp-Cyjly Work Phone: Start: 12-18-2021 Non-patient / Non-visit BMET-C Mack Gonzalez BMET Work Phone: [facility] Start: 12-18-2021 End: 12-18-2021 Patient encounter procedure BMET-C Kamryn Posadasa BMET Work Phone: [facility]-Cardiovascular Services Start: 12-18-2021 End: 12-18-2021 Patient encounter procedure BMET-C Kamryn Posadasa BMET Work Phone: [facility] Start: 12-15-2021 Non-patient / Non-visit BMET-C Mack Gonzalez BMET [facility] Phone: [facility] Start: 12-15-2021 Telephone encounter Kamryn Browning Cie Work Phone: RI-Ynjfgsfzwvrmxe-Bfavmko Work Phone: Start: 12-15-2021 End: 12-15-2021 Emergency department patient visit BMET-C Kamryn Posadaschioma BMET Work Phone: [facility]-Emergency Department Start: 12-15-2021 End: 12-15-2021 Office outpatient visit 25 minutes Kamryn Gonzalez Work Phone: [facility] Start: 12-14-2021 Non-patient / Non-visit BMET-C M glory Posadasa BMET Work Phone: [facility] Start: 12-11-2021 End: 12-21-2021 Discharged Recurring BMET-C Kamryn Gonzalez BMET Work Phone: [facility] Start: 12-11-2021 Registered Recurring BMET-C Kamryn Posadaschioma BMET Work Phone: [facility] Start: 12-10-2021 End: 12-10-2021 Emergency department patient visit BMET-C Kamryn Posadaschioma BMET Work Phone: [facility]-Emergency Department Start: 12-08-2021 Non-patient / Non-visit BMET-C M glory Ciesa BMET Work Phone: [facility] Start: 12-07-2021 AUDIT Archana Cieschioma Work Phone: XE-Bcfpgtzomyeesi-Pveqi [place] [address] Work Phone: Start: 12-07-2021 Non-patient / Non-visit BMET-C M glory Posadasa BMET Work Phone: [facility] Start: 12-07-2021 Registered Recurring BMET-C Kamryn Posadasa BMET Work Phone: [facility] Start: 12-07-2021 End: 12-07-2021 Patient encounter procedure BMET-C Kamryn Gonzalez BMET Work Phone: [facility] Start: 12-06-2021 AUDIT Kamryn Gonzalez Work Phone: WX-Fvzknvrdecfujn-Oofwi [place] [address] Work Phone: Start: 12-05-2021 End: 12-05-2021 Emergency department patient visit Avinash Otero [facility] Adult ED [address] Start: 12-05-2021 End: 12-05-2021 Emergency department patient visit BMET-C Kamryn Gonzalez BMET Work Phone: [facility]-Emergency Department Start: 12-04-2021 Patient encounter procedure Kamryn Gonzalez Work Phone: SF-Nanpxaflzcyedz-Zsrvm Work Phone: Start: 11-29-2021 Patient encounter procedure Kamryn Gonzalez Work Phone: WM-Csssalcrvydqrk-Ijrqoqt Work Phone: Start: 11-29-2021 Postop follow up vis it related to original px Kamryn Gonzalez Work Phone: TX-Hkhojrrpvffwmj-Tcijf [place] [address] Work Phone: Start: 11-21-2021 Chart Update Kamryn Gonzalez Work Phone: QD-Zoapsepxpkqmrd-Jfhzyha e Work Phone: Start: 11-20-2021 End: 11-20-2021 Departed Referred BMET-C Kamryn Gonzalez BMET Work Phone: [place] [address] Start: 11-20-2021 Registered Referred BMET-C Kamryn Gonzalez BMET Work Phone: [place] [address] Start: 11-07-2021 Chart Update Kamryn Gonzalez Work Phone: MC-Fclabelaircnfa-Hwylk [address] Work Phone: Start: 11-07-2021 Chart Update Kamryn Gonzalez Work Phone: AA-Aasvzlcxdqzisa-Gbzgm [address] Work Phone: Start: 11-07-2021 End: 11-18-2021 Evaluation and management of inpatient Rachel Morales 5 Rm [id number] Start: 11-03-2021 Chart Update Kamryn Gonzalez Work Phone: II-Qqmgssjkhqbwpn-Flgii [place] [address] Work Phone: Start: 11-03-2021 Chart Update Kamryn Gonzalez Work Phone: IH-Uudujvxevrcffk-Ozgmkgi e Work Phone: Start: 11-01-2021 AUDIT Kamryn Gonzalez Work Phone: PJ-Eldxwjhkqqgnsp-Lorolvu e Work Phone: Start: 11-01-2021 FUV, Provider: Willie Smith, Status: Pen, Time: 8:00 AM Kamryn Gonzalez Work Phone: NQ-Cfnqtjcxjouwdm-Sjd for Perioperative Med Work Phone: Start: 11-01-2021 Office outpatient vi sit 25 minutes Kamryn Gonzalez Work Phone: RJ-Axlniikzuhzmol-Fnwfyqe n Work Phone: Start: 10-31-2021 AUDIT Kamryn Gonzalez Work Phone: FT-Cchthlrrikumpg-Xoy for Perioperative Med Work Phone: Start: 10-25-2021 Chart Update Kamryn Gonzalez Work Phone: DD-Bgywruyaqkduip-Fxift [place] [address] Work Phone: Start: 10-16-2021 Office outpatient vi sit 40 minutes Kamryn Posadasa Work Phone: HT-Tppejbfzitffgr-Vwxlk [place] [address] Work Phone: Start: 10-16-2021 Patient encounter procedure Kamryn Gonzalez Work Phone: RJ-Gpqkqrjaaufaak-Biwul Work Phone: Start: 08-23-2021 Patient encounter procedure BMET-C Kamryn Posadaschioma BMET Work Phone: [facility] Start: 08-23-2021 Non-patient / Non-visit BMET-C Mack holder Monica BMET Work Phone: [facility] Start: 08-23-2021 End: 09-22-2021 Discharged Recurring BMET-C Kamryn Posadaschioma BMET Work Phone[facility] Start: 08-15-2021 End: 08-15-2021 Office outpatient visit 25 minutes Kamryn Posadaschioma CONCRETE PUMP OPERATOR HELPER Work Phone: [facility] Start: 07-26-2021 End: 07-26-2021 Office outpatient visit 15 minutes Kamryn Posadaschioma CONCRETE PUMP OPERATOR HELPER Work Phone: [facility] Start: 03-13-2021 Review Kamryn Josefameganchioma CONCRETE PUMP OPERATOR HELPER Work Phone: [facility] Start: 03-13-2021 End: 03-13-2021 Office outpatient visit 25 minutes Kamryn Gonzalez CONCRETE PUMP OPERATOR HELPER Work Phone: [facility] Start: 12-02-2020 End: 12-02-2020 Office outpatient visit 15 minutes Kamryn Gonzalez [facility] Start: 11-28-2020 Review Kamryn Brady sruthi [facility] Start: 08-29-2020 Review Kamryn Brady sruthi [facility] Start: 08-29-2020 End: 08-29-2020 Office outpatient visit 15 minutes Kamryn Gonzalez [facility] Start: 06-29-2020 End: 06-29-2020 Office outpatient visit 15 minutes Kamryn Gonzalez [facility] Start: 06-29-2020 Review Kamryn Brady sr[facility] Start: 05-19-2020 End: 05-19-2020 Lab Order Kamryn Gonzalez [facility] Start: 05-19-2020 End: 05-19-2020 Sadie Santiago CNP Work Phone: [facility] Start: 04-14-2020 End: 04-14-2020 Office outpatient visit 15 minutes Kamryn Gonzalez [facility] Start: 12-14-2019 End: 12-14-2019 Office outpatient visit 15 minutes Kamryn Gonzalez [facility] Start: 06-15-2019 Patient encounter procedure Rachel Brooks BY-Zncuxexstcnqkq-Jugsf [place] [address] Work Phone: Start: 04-13-2019 Patient encounter procedure Rachel Brooks UF-Dtbdqvqxjbtnae-Zslie [place] [address] Work Phone: Start: 03-16-2019 Patient encounter procedure Rachel Brooks NO-Xqgkcysctzxujn-Cplxb [place] [address] Work Phone: Start: 01-19-2019 Patient encounter procedure Rachel Brooks XT-Lmrhzijbmkjgbo-Ifxuh [place] [address] Work Phone: Start: 01-05-2019 End: 01-05-2019 Annotation/Addendum Kamryn Posadasa [facility] Start: 01-05-2019 End: 01-05-2019 Sadie Santiago CNP Work Phone: [facility] Start: 01-02-2019 End: 01-02-2019 Annotation/Addendum Kamryn Posadasa [facility] Start: 01-02-2019 End: 01-02-2019 Sadie Santiago CNP Work Phone: [facility] Start: 01-02-2019 End: 01-02-2019 Office outpatient visit 25 minutes Kamryn Gonzalez [facility] Start: 01-02-2019 Review Kamryn Ciesa Comprehens sruthi [facility] Start: 12-19-2018 End: 12-19-2018 Annotation/Addendum Kamryn Ciesa [facility] Start: 12-19-2018 End: 12-19-2018 Sadie Santiago CNP Work Phone: [facility] Start: 12-15-2018 Review Kamryn Ciesa Comprehens sruthi [facility] Start: 12-15-2018 End: 12-15-2018 Office outpatient new 45 minutes Kamryn Gonzalez [facility] Patient encounter status Kamryn Gonzalez Work Phone: WF-Xgyortmnhvbirv-Zykqe Work Phone: Procedures Date Procedure Procedure Detail Performing Clinician Start: 07-06-2025 Thyrotropin [Units/volume] in Serum or Plasma [facility] 1 Start: 06-30-2025 Duplex scan extracranial art compl bi study Dayami Jha MD Work Phone: Start: 05-07-2025 Blood pressure outside of normal parameters - follow-up documented Roman Morales MD Work Phone: Start: 05-07-2025 Current tobacco non-user cad cap copd pv dm Roman Morales MD Work Phone: Start: 05-07-2025 Documentation of current medications Roman Morales MD Work Phone: Start: 05-07-2025 Pain assessment documented as negative - follow-up not required Roman Morales MD Work Phone: Start: 04-15-2025 Esophagogastroduodenoscopy Sadie Santiago BMET-C Work Phone: Start: 12-29-2024 CT of thorax with contrast Sadie Santiago BMET-C Work Phone: Start: 12-17-[address] Quincy Simpson MD Work Phone: Start: 09-15-2024 Plain chest X-ray Dr. Quincy Simpson MD Work Phone: Start: 09-15-2024 Plain chest X-ray Dr. Quincy Simpson MD Work Phone: Start: 09-15-2024 Biopsy/Inj or Needle Placement Dr. Quincy Simpson MD Work Phone: Start: 08-25-2024 CT of thorax with contrast Dr. Quincy Simpson MD Work Phone: Start: 09-03-2023 Esophagogastroduodenoscopy BMET-C Kamryn Gonzalez BMET Work Phone: Start: 08-05-2023 Videoswallow BMET-C Kamryn Gonzalez BMET Work Phone: Start: 07-29-2023 CT of soft tissues of neck with contrast BMET-C Kamryn Gonzalez BMET Work Phone: Start: 07-29-2023 CT of thorax with contrast BMET-C Kamryn Gonzalez BMET Work Phone: Start: 05-22-2023 End: 05-22-2023 Procedure Note: See Note; NOTES: [facility] [address] [place], [place] [address] [address] OFFICE VISIT Date of Service: 05/22/23 1102 MR#: [id number] Acct: [id number] Name: MY JAMA Rep #: [id number] : 1960 From: Quincy Simpson MD Age/Sex: 62/M Location: [facility] Status: Signed HPI Subjective Date [...] FINDINGS: Supraclavicular: No acute process within the [id number]. Body wall soft tissues: No acute process. [...] AE1-3 (AE1/AE3/PCK26) positive CK7 (OV-TL12/30) negative CK8 ([id number]) positive, weak CK20 (KS20.8) negative TTF-1 (8G7G3/1) [...] of first interosseous muscles. Coordination / Balance: pzdsrx-vp-zkxy test normal Speech: speech abnormal Gait (Neuro): [...] reviewed with patient . Quincy Simpson MD Graphic Designer, [facility] Divisions of Medical Oncology Hematology Department of Internal Medicine [place] [id number] This note was generated using a voice [...] Signature: Date (if applicable) CC: Sadie Santiago CONCRETE PUMP OPERATOR HELPER Work Phone: Start: 04-03-2023 Anaerobic microbial culture BMET-C Kamryn Gonzalez BMET Work Phone: [phone] Start: 04-03-2023 Investigation of transfusion reaction BMET-C Kamryn Gonzalez BMET Work Phone: [phone] Start: 04-03-2023 Microbial culture, routine BMET-C Kamryn Gonzalez BMET Work Phone: [phone] Start: 02-13-2023 Anaerobic microbial culture BMET-C Kamryn Gonzalez BMET Work Phone: [phone] Start: 02-13-2023 Investigation of transfusion reaction BMET-C Kamryn Gonzalez BMET Work Phone: Start: 02-13-2023 Microbial culture, routine BMET-C Kamryn Gonzalez BMET Work Phone: Start: 01-31-2023 End: 01-31-2023 Procedure Note: See Note; NOTES: [facility] [address] [place] [address] OFFICE VISIT Date of Service: 01/31/2357 MR#: [id number] Acct: [id number] Name: MY JAMA Rep #: [id number] : 1960 From: Santiago Sellers DO Age/Sex: 62/M Location: [facility] Status: Signed Intake Vital Signs 11/01/22 09:37 [...] discussion with ENT. Continue follow up with ASSOCIATE SALES MANAGER. He will continue to see ENT every [...] at any time. Santiago Sellers DO, MS Graphic Designer, Department of Radiation Oncology 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 01/31/23 1024 <Electronically signed by Santiago Sellers DO> Date Santiago Sellers DO Cosigner Signature: Date (if applicable) CC: BMET-C Kamryn Gonzalez; MD Sadie Agustin CONCRETE PUMP OPERATOR HELPER Work Phone: Start: 01-28-2023 CT of soft tissues of neck with contrast BMET-C Kamryn Gonzalez BMET Work Phone: Start: 01-28-2023 CT of thorax with contrast BMET-C Kamryn Gonzalze BMET Work Phone: Start: 01-28-2023 End: 01-28-2023 Procedure Note: See Note; NOTES: [facility] Imaging Services [address] [place] [address] Chest WITH Contrast MR#: [id number] Acct: [id number] Name: MY JAMA Rep #: [id number] : 1960 M 62 From: Bib ghosh MD PCP: Sadie Santiago, BMET-C Status: REG CLI Study: Chest WITH Contrast Date of Exam: 01/28/23 Exam# [id number] Ordering Dr: Santiago Sellers DO STUDY: CT [...] Signed: Bib Reeves MD at 12:48 EDT , CC: YARI Santiago; Dr. Santiago Sellers DO Marketing Proposal Specialist: Signed Sadie Santiago CONCRETE PUMP OPERATOR HELPER Work Phone: Start: 01-28-2023 End: 01-28-2023 Procedure Note: See Note; NOTES: [facility] Imaging Services [address] [place] [address] Soft Tissue Neck WITH Contrast MR#: [id number] Acct: [id number] Name: MY JAMA Rep #: [id number] : 1960 M 62 From: Bib ghosh MD PCP: YARI Santillan Status: REG CLI Study: Soft Tissue Neck WITH Contrast Date of Exam: 0 01/28/23 Exam# [id number] Ordering Dr: Santiago Sellers DO STUDY: CT [...] seen. Normal bilateral parotid glands. Normal bilateral guest relations coordinator spaces. Normal bilateral parapharyngeal spaces. Normal bilateral [...] CC: YARI Santiago; Dr. Santiago Sellers DO Marketing Proposal Specialist: Signed Sadie Santiago CONCRETE PUMP OPERATOR HELPER Work Phone: Start: 01-09-2023 Anaerobic microbial culture BMET-C Kamryn Gonzalez BMET Work Phone: Start: 01-09-2023 Investigation of transfusion reaction BMET-C Kamryn Gonzlaez BMET Work Phone: Start: 01-09-2023 Microbial culture, routine BMET-C Kamryn Gonzalez BMET Work Phone: Start: 11-21-2022 End: 11-21-2022 Procedure Note: See Note; NOTES: [facility] [address] [place] [address] [place] [address] OFFICE VISIT Date of Service: 11/21/22 1303 MR#: [id number] Acct: [id number] Name: MY JAMA Rep #: [id number] : 1960 From: Quincy Simpson MD Age/Sex: 62/M Location: [facility] Status: Signed HPI Subjective Date [...] FINDINGS: Supraclavicular: No acute process within the exqxb-bg-bvkv. Body wall soft tissues: No acute process. [...] AE1-3 (AE1/AE3/PCK26) positive CK7 (OV-TL12/30) negative CK8 (07fkaqC92) positive, weak CK20 (KS20.8) negative TTF-1 (8G7G3/1) [...] History (Updated 11/21/22 @ 13:08 by Hortencia Osorio Smoking Status: Former smoker quit date: 09/16/21 [...] of first interosseous muscles. Coordination / Balance: vtytuj-px-bcfw test normal Speech: speech abnormal Gait (Neuro): [...] reviewed with patient . Quincy Simpson MD Graphic Designer, [facility] Divisions of Medical Oncology Hematology Department of Internal Medicine [place] [id number] This note was generated using a voice recognition system software. Although it was reviewed by the author prior to finalization, it may still contain incorrect words, spelling, and punctuation that were not noted when reviewing prior to saving. If a clinically significant typo or inaccurately typed phrase is noted, please notify the author. 11/21/22 5981 <Electronically signed by Quincy Simpson MD> Date Quincy Simpson MD Cosigner Signature: Date (if applicable) CC: YARI Santiago CONCRETE PUMP OPERATOR HELPER Work Phone: Start: 11-01-2022 End: 11-01-2022 Procedure Note: See Note; NOTES: [facility] [address] [place], [place] [address] [place] [address] OFFICE VISIT Date of Service: 11/01/22929 MR#: [id number] Acct: [id number] Name: MY JAMA Rep #: [id number] : 1960 From: Santiago Sellers DO Age/Sex: 62/M Location: [facility] Status: Signed Intake Vital Signs 07/31/22 09:11 [...] fibrosis #30 caps 07/31/22 [Rx Confirmed 11/01/22] [facility] Medical History Acid reflux Anemia Cancer [...] at any time. Santiago Sellers DO, MS Graphic Designer, Department of Radiation Oncology 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 [place] [address] OFFICE VISIT Date of Service: 07/31/22903 MR#: [id number] Acct: [id number] Name: MY JAMA Rep #: [id number] : 1960 From: Santiago Sellers DO Age/Sex: 62/M Location: [facility] Status: Signed Intake Vital Signs 04/30/22 09:03 [...] at any time. Santiago Sellers DO, MS Graphic Designer, Department of Radiation Oncology 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 07/31/22 1000 <Electronically signed by Santaigo Sellers DO> Date Santiago Sellers DO Cosigner Signature: Date (if applicable) CC: BMET-Damaris Gonzalez; MD Sadie Agustin CONCRETE PUMP OPERATOR HELPER Work Phone: Start: 07-24-2022 CT of soft tissues of neck with contrast BMET-C Kamryn Gonzalez BMET Work Phone: Start: 07-24-2022 CT of thorax with contrast BMET-C Kamryn Gonzalez BMET Work Phone: Start: 07-24-2022 End: 07-25-2022 Procedure Note: See Note; NOTES: [facility] Imaging Services [address] [place] [address] Chest WITH Contrast MR#: [id number] Acct: [id number] Name: MY JAMA Rep #: [id number] : 1960 M 62 From: Bib ghosh MD PCP: Kamryn Gonzalez, BMET-C Status: REG CLI Study: Chest WITH Contrast Date of Exam: 07/24/22 Exam# [id number] Ordering Dr: Quincy Simpson MD STUDY: CT [...] CC: YARI Gonzalez; Dr. Quincy Simpson MD Marketing Proposal Specialist: Signed Sadie Santiago CNP Work Phone: Start: 07-24-2022 End: 07-24-2022 Procedure Note: See Note; NOTES: [facility] Imaging Services [address] [place] [address] Soft Tissue Neck WITH Contrast MR#: [id number] Acct: [id number] Name: MY JAMA Rep #: [id number] : 1960 M 62 From: Bib ghosh MD PCP: YARI Pardo Status: REG CLI Study: Soft Tissue Neck WITH Contrast Date of Exam: 09/23/21 Exam# [id number] Ordering Dr: Quincy Simpson MD STUDY: CT [...] region. Normal bilateral parotid glands. Normal bilateral guest relations coordinator spaces. Normal bilateral parapharyngeal spaces. Normal bilateral [...] 15:31 EDT Reading Location ID and State: [address] [place] [address] , Service support , CC: YARI Gonzalez; Dr. Quincy Simpson MD Marketing Proposal Specialist: Signed Sadie Santiago CNP Work Phone: Start: 07-10-2022 End: 07-10-2022 Procedure Note: See Note; NOTES: [facility] [address] [place] [address] H P Exam - Wound Care 07/10/22 1242 MR#: [id number] Acct: [id number] Name: MY JAMA Rep #: [id number] : 1960 62 From: Maurice Spaulding MD PCP: Kamryn Gonzalez BMET-C Status:REG RCR Location: History of Present Illness [...] Start: 06/27/22 08:32 Freq: Status: Active Protocol: DHAVAL.ROXANA Activity Type Activity Date Activity User E-sign Co-sign Detail Recorded Client Recorded Date Recorded By Document 06/27/22 08:32 KR [id number] 06/27/22 08:38 KR Document 07/04/22 08:19 PL [id number] 07/04/22 08:21 PL Document 07/10/22 08:41 KR [id number] 07/10/22 08:45 KR 06/27/22 07/04/22 07/10/22 08:32 08:19 08:41 - Today's Visit Information Type of service Follow-up Visit Follow-up Visit 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 (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 ) ) ) Arrival Mode Ambulatory Ambulatory [...] Recorded Date Recorded By Document 06/27/22 08:32 [id number] 06/27/22 08:38 KR Document 07/10/22 08:41 [id number] 07/10/22 08:45 KR 06/27/22 07/10/22 08:32 08:41 Wound Center Nurse 1 #2- L LAT LE -Current Size (cm) - Length 0.1 -Current Size (cm) - Width 0.1 -Current Size (cm) - Depth 0.1 -Total Square Cm 0.01 -Exudate Amt Medium -Exudate Type Serosanguineous -Wound Margin Distinct, Outline Attached -Granulation Amt Medium (34-66%) -Granulation Quality Claypool -Necrosis Amt Small (1-33%) -Necrotic Tissue Type [...] (34-66%) None Present (0 %) -Granulation Quality [place]pool -Necrosis Amt Medium (34-66%) Large (67-100%) -Necrotic [...] Date Recorded By Document 06/27/22 08:44 MW [id number] 06/27/22 08:50 MW Document 07/04/22 08:45 MW [id number] 07/04/22 08:49 MW Document 07/10/22 10:59 PL [id number] 07/10/22 10:59 PL 10/02/1107/04/22 07/10/22 08:44 08:45 10:59 Wound Center Nurse [...] Date Recorded By Document 06/27/22 09:01 MW [id number] 06/27/22 09:02 MW Document 07/04/22 08:55 PL [id number] 07/04/22 08:56 PL Document 07/10/22 09:14 KR [id number] 07/10/22 09:14 KR 06/27/22 07/04/22 07/10/22 09:01 [...] Cosigner Signature (if applicable): CC: Signed Sadie Jack [facility] Work Phone: Start: 06-15-2022 End: 06-15-2022 Modified Barium Swallow Study Procedure Note: See Note ; NOTES: [facility] Speech Pathology [address] [place] [address] Modified Barium Swallow Study MR#: [id number] Acct: [id number] Name: MY JAMA Rep #: [id number] : 1960 61 From: Latosha Boyer M.A., [facility]-ASSOCIATE SALES MANAGER Modified Barium Swallow - Patient Information Study [...] purees due to increased difficulty swallowing solids. ASSOCIATE SALES MANAGER recommended repeat MBSS to reassess swallow function [...] clearing trace residues lining the laryngeal vestibule. [place] Thick Liquid via small single sip from [...] aspiration observed during the study; however, the ASSOCIATE SALES MANAGER could not definitively rule out aspiration of large sip of thin liquids via cup due to pt's body habitus. - Recommendations Diet: Puree Textures - thinned, moist purees (must pass spoon-tilt test), Thin Liquids Comment: Porfirio Free Water Protocol Compensatory Strategies: Small Bites, [...] regarding diet recommendations, Monroy Free Water Protocol (ASSOCIATE SALES MANAGER provided pt and daughter handout after MBSS), [...] Active ST Patient: Active - Contact Information [facility] Speech Therapy:: Latosha Boyer M.A. CCC-ASSOCIATE SALES MANAGER Speech-Language Pathologist [facility] [place] [address] [email or web address] [phone] 06/15/22 14:26 06/15/22 1518 <Electronically signed by Latosha Boyer M.A., CCC-S LP> Date/Time Latosha Boyer M.A., CCC-ASSOCIATE SALES MANAGER Co-Signature Required for all Medicare patients Date/Time Co-Signature CC: Sadie Santiago CONCRETE PUMP OPERATOR HELPER Work Phone: Start: 06-15-2022 Timmy BMETLulu Gonzalez BMET Work Phone: Start: 05-23-2022 End: 05-23-2022 Oncology Visit Report Procedure Note: See Note; NOTES: [facility] [place] [address] OFFICE VISIT Date of Service: 05/23/22 1126 MR#: [id number] Acct: [id number] Name: MY JAMA Rep #: [id number] : 1960 From: Quincy Simpson MD Age/Sex: 61/M Location: [facility] Status: Signed HPI Subjective Date [...] FINDINGS: Supraclavicular: No acute process within the lkuoo-mn-xvqs. Body wall soft tissues: No acute process. [...] AE1-3 (AE1/AE3/PCK26) positive CK7 (OV-TL12/30) negative CK8 (91khczE82) positive, weak CK20 (KS20.8) negative TTF-1 (8G7G3/1) [...] of first interosseous muscles. Coordination / Balance: bnxhsx-mn-mzqb test normal Speech: speech abnormal Gait (Neuro): [...] reviewed with patient . Quincy Simpson MD Graphic Designer, [facility] Divisions of Medical Oncology Hematology Department of Internal Medicine [address] [address] This note was generated using a voice [...] MD Cosigner Signature: Date (if applicable) CC: BMET-Damaris Sunyn Jack CONCRETE PUMP OPERATOR HELPER Work Phone: Start: 04-30-2022 End: 04-30-2022 Radiation Oncology Visit Procedure Note: See Note; NOTES: [facility] [place] [address] OFFICE VISIT Date of Service: 04/30/22 0857 MR#: [id number] Acct: [id number] Name: MY JAMA Yamilet Rep #: [id number] : 1960 From: Santiago Sellers DO Age/Sex: 61/M Location: [facility] Status: Signed Intake Vital Signs 03/27/22 09:27 [...] at any time. Santiago Sellers DO, MS Graphic Designer, Department of Radiation Oncology 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 Quincy Simpson MD; MD Sadie Agustin [facility] Work Phone: Start: 04-25-2022 End: 04-25-2022 Wound Ctr History AND Physical Comments: See Note; NOTES: [facility] [address] [place] [address] H P Exam - Wound Care 04/25/22 0958 MR#: [id number] Acct: [id number] Name: MY JAMA Rep #: [id number] : 1960 61 From: Joya Gavlez NP BMET-C PCP: YARI Pardo Status:REG RCR Location: History [...] Date Recorded By Document 04/25/22 08:55 KR [id number] 04/25/22 09:04 VIC 04/25/22 08:55 - Today's [...] Date Recorded By Document 04/25/22 08:55 VIC [id number] 04/25/22 09:04 VIC 04/25/22 08:55 Wound Center [...] Date Recorded By Document 04/25/22 09:49 PL [id number] 04/25/22 09:51 PL 04/25/22 09:49 Wound Center [...] Recorded Date Recorded By Document 04/25/22 09:21 [facility] [id number] 04/25/22 09:23 [facility] 04/25/22 09:21 Wound Care Nurse 3 #1 Chin -Ulcer Cleansing Rinsed/ Irrigated with Saline -Foul Odor after Cleansing No -Primary Dressing Applied Aquacel Extra -Primary Dressing Covered/Secured with Dry Gauze, Secured with Tape -Other Covering DRSG 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 [place] [employer]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 , 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 USE 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 ASSOCIATE SALES MANAGER recommended repeat MBS study to reassess swallow [...] Result: 3= enters airways/above vocal folds/not ejected [place] Thick Liquid via small single sip from cup Result: 1= does not enter airway Honey Thick Liquid via small single sip from cup Result: 1= does not enter airway - Cued the patient for cough and re-swallow to clear the laryngeal vestibule of trace residues from the sequential sips of thin via cup. ASSOCIATE SALES MANAGER recommended placing PMSV and cleaned the valve [...] Active ST Patient: Active - Contact Information [facility] Speech Therapy:: Latosha Boyer M.A. CCC-ASSOCIATE SALES MANAGER Speech-Language Pathologist [facility] [address] [place] [address] [email or web address] [phone] 04/13/22 12:15 04/13/22 1248 <Electronically signed by Latosha Boyer M.A., CCC-S LP> Date/Time Latosha Boyer M.A., CCC-ASSOCIATE SALES MANAGER Co-Signature Required for all Medicare patients Date/Time Co-Signature CC: Sadie Santiago CONCRETE PUMP OPERATOR HELPER Work Phone: Start: 04-13-2022 Timmy BMET-C Kamryn Gonzalez BMET Work Phone: Start: 03-27-2022 End: 03-27-2022 Radiation Oncology Visit Comments: See Note; NOTES: [facility] [address] [place] [address] OFFICE VISIT Date of Service: 03/27/22924 MR#: [id number] Acct: [id number] Name: MY JAMA Rep #: [id number] : 1960 From: Santiago Sellers DO Age/Sex: 61/M Location: [facility] Status: Signed Intake Vital Signs 03/27/22 09:25 [...] peeling #85 grams 03/27/22 [Rx Confirmed 03/27/22] [facility] Medical History (Updated 02/27/22 @ 10:29 [...] at any time. Santiago Sellers DO, MS Graphic Designer, Department of Radiation Oncology 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 Quincy Simpson MD; MD Kamryn Agustin Work Phone: Start: 02-27-2022 End: 02-27-2022 Radiation Oncology Visit Comments: See Note; NOTES: [facility] [address] [address] OFFICE VISIT Date of Service: 02/27/22957 MR#: [id number] Acct: [id number] Name: MY JAMA Rep #: [id number] : 1960 From: Santiago Sellers DO Age/Sex: 61/M Location: [facility] Status: Signed Intake Vital Signs 02/27/22 10:05 [...] Days #60 cap 02/27/22 [Rx Confirmed 02/27/22] [facility] Medical History (Updated 02/27/22 @ 10:29 [...] at any time. Santiago Sellers DO, MS Graphic Designer, Department of Radiation Oncology 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 02/27/22 1101 <Electronically signed by Santiago Sellers DO> Date Santiago Sellers DO Gabrielignallison Signature: Date (if applicable) CC: Kamryn Gonzalez Work Phone: Start: 02-14-2022 End: 02-14-2022 Oncology Visit Report Comments: See Note; NOTES: [facility] [address] [place] [address] [place] [address] OFFICE VISIT Date of Service: 02/14/22 1042 MR#: [id number] Acct: [id number] Name: MY JAMA Rep #: [id number] : 1960 From: Quincy Simpson MD Age/Sex: 61/M Location: [facility] Status: Signed HPI Subjective Date [...] FINDINGS: Supraclavicular: No acute process within the nguqi-et-smof. Body wall soft tissues: No acute process. [...] AE1-3 (AE1/AE3/PCK26) positive CK7 (OV-TL12/30) negative CK8 (40yxlsN97) positive, weak CK20 (KS20.8) negative TTF-1 (8G7G3/1) [...] of first interosseous muscles. Coordination / Balance: unbnee-rq-uyrt test normal Speech: speech abnormal Gait (Neuro): [...] reviewed with patient . Quincy Simpson MD Graphic Designer, [facility] Divisions of Medical Oncology Hematology Department of Internal Medicine [address] [address] This note was generated using a voice [...] MD Cosigner Signature: Date (if applicable) CC: BMETLulu Gonzalez; Dr. Santiago Sellers, DO Kamryn Gonzalez Work Phone: Start: 02-14-2022 End: 02-14-2022 Radiation Oncology Visit Comments: See Note; NOTES: [facility] [place] [address] OFFICE VISIT Date of Service: 02/14/22 1038 MR#: [id number] Acct: [id number] Name: MY JAMA Rep #: [id number] : 1960 From: Santiago eSllers DO Age/Sex: 61/M Location: [facility] Status: Signed Intake Vital Signs 02/14/22 10:38 [...] of mouth squamous cell carcinoma: PLAN: Assessment: yM Jama is a 61-year-old male diagnosed with [...] at any time. Santiago Sellers DO, MS Graphic Designer, Department of Radiation Oncology 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 Quincy Simpson MD; MD Kamryn Agustin Work Phone: Start: 02-06-2022 End: 02-06-2022 Radiation Oncology Visit Comments: See Note; NOTES: [facility] [address] [address] OFFICE VISIT Date of Service: 02/06/22924 MR#: [id number] Acct: [id number] Name: MY JAMA Rep #: [id number] : 1960 From: Santiago Sellers DO Age/Sex: 61/M Location: [facility] Status: Signed End of Treatment Summary: Diagnosis: [...] this patient. Sincerely, Santiago Sellers DO, MS Graphic Designer, Department of Radiation Oncology [facility] 02/06/22 0953 <Electronically signed by Santiago Sellers DO> Date Santiago Sellers DO Cosigner Signature: Date (if applicable) CC: YARI Gonzalez; Dr. Quincy Simpson MD; MD Kamryn Agustin Work Phone: Start: 01-31-2022 End: 01-31-2022 Radiation Oncology Visit Comments: See Note; NOTES: [facility] [place] [address] [place] [address] OFFICE VISIT Date of Service: 01/31/2247 MR#: [id number] Acct: [id number] Name: MY JAMA Rep #: [id number] : 1960 From: Santiago Sellers DO Age/Sex: 61/M Location: [facility] Status: Signed Intake Intake Visit Reasons: OTV [...] follow up, weight stable to slightly decreased ASSOCIATE SALES MANAGER: continue following during XRT Rinses: continue recommended baking soda/salt rinses 4-6/d, green tea rinses 2-3/d Follow up in 2 weeks or sooner if needed. Thank you for allowing me to participate in the management and care of your patient. If I may answer any questions in the interim, please do not hesitate to contact me at any time. Santiago Sellers DO, MS Graphic Designer, Department of Radiation Oncology 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 01/31/22 1016 <Electronically signed by Santiago Sellers DO> Date Santiago Royign Signature: Date (if applicable) CC: Kamryn Posadaschioma Work Phone: Start: 01-31-2022 End: 01-31-2022 Oncology Visit Report Comments: See Note; NOTES: [facility] [address] [place] [address] OFFICE VISIT Date of Service: 01/31/22 0830 MR#: [id number] Acct: [id number] Name: MY JAMA Rep #: [id number] : 1960 From: Quincy Simpson MD Age/Sex: 61/M Location: [facility] Status: Signed HPI Subjective Date [...] FINDINGS: Supraclavicular: No acute process within the bgxhi-pr-stku. Body wall soft tissues: No acute process. [...] AE1-3 (AE1/AE3/PCK26) positive CK7 (OV-TL12/30) negative CK8 (56flhlE42) positive, weak CK20 (KS20.8) negative TTF-1 (8G7G3/1) [...] of first interosseous muscles. Coordination / Balance: njndvc-th-hgku test normal Speech: speech abnormal Gait (Neuro): [...] reviewed with patient . Quincy Simpson MD Graphic Designer, [facility] Divisions of Medical Oncology Hematology Department of Internal Medicine [place] [phone] This note was generated using a voice [...] MD Cosigner Signature: Date (if applicable) CC: Kamryn Gonzalez Work Phone: Start: 01-24-2022 End: 01-24-2022 Radiation Oncology Visit Comments: See Note; NOTES: [place] [address] OFFICE VISIT Date of Service: 01/24/22 1029 MR#: [id number] Acct: [id number] Name: MY JAMA Rep #: [id number] : 1960 From: Santiago Sellers DO Age/Sex: 61/M Location: [facility] Status: Signed Intake Vital Signs [...] Days #42 cap 01/24/22 [Rx Confirmed 01/24/22] [facility] Medical History Acid [...] follow up, weight stable to slightly decreased ASSOCIATE SALES MANAGER: continue following during XRT Rinses: continue recommended baking soda/salt rinses 4-6/d, green tea rinses 2-3/d Follow up next week or sooner if needed. Thank you for allowing me to participate in the management and care of your patient. If I may answer any questions in the interim, please do not hesitate to contact me at any time. Santiago Sellers DO, MS Graphic Designer, Department of Radiation Oncology 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 01/24/22 1059 <Electronically signed by Santiago Sellers DO> Date Santiago Sellers DO Cosigner Signature: Date (if applicable) CC: Kamryn Gonzalez Work Phone: Start: 01-22-2022 End: 01-22-2022 Chest PA and Lateral Comments: See Note; NOTES: [facility] Imaging Services [address] [place] [address] Chest PA and Lateral MR#: [id number] Acct: [id number] Name: ANAMY W Rep #: [id number] : 1960 M 61 From: Charles Tyler PCP: Kamryn Gonzalez, BMET-C Status: [facility] ER Study: Chest PA and Lateral Date of Exam: 01/22/22 Exam# [id number] Ordering Dr: Cesar Mcbride MD STUDY: X-RAY [...] 21:32 EDT [place] Location ID and State: [facility] / [place] , Service support , CC: YARI Gonzalez; Dr. Cesar Mcbride MD Marketing Proposal Specialist: Signed Kamryn Gonzalez Work Phone: Start: 01-22-2022 Plain chest X-ray BMET-C Kamryn Gonzalez BMET Work Phone: Start: 01-22-2022 End: 01-22-2022 Emergency Department Summary Comments: See Note; NOTES: [facility] Medical Records Department [address] [place] [address] Emergency Department Summary 01/22/22 MR#: [id number] Acct: [id number] Name: MY JAMA Rep #: [id number] : 1960 61 From: Cesar Mcbride MD [...] undergoing chemotherapy. He is status post tracheostomy. [facility] Medical History Acid reflux Anemia Cancer [...] oriented x3 and CN's II-XII intact bilaterally [place] Coma Scale: document GCS findings Spontaneous Obeys [...] 80.0 H Lymph % (Auto) 7.4 L [place] % (Auto) 11.7 H Eos % (Auto) [...] (Rate is 70. The EKG is normal. ND interval 70 ms. QRS duration is 170 ms. QRS durations 90 ms. QT duration 394 ms. 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 Call Doctors [facility] ([phone]) or report to the closest Emergency Room. Call 911 if necessary. 01/22/222146 <Electronically signed by Cesar Mcbride MD> Cosigner Signature (if applicable): CC: BMETChristineC Kamryn Gonzalez Signed Kamryn Gonzalez Work Phone: Start: 01-17-2022 End: 01-24-2022 Radiation Oncology Visit Comments: See Note; NOTES: [facility] [address] [place] [address] OFFICE VISIT Date of Service: 01/17/22 0846 MR#: [id number] Acct: [id number] Name: MY JAMA Rep #: [id number] : 1960 From: Santiago Sellers DO Age/Sex: 61/M Location: [facility] Status: Signed Intake Vital Signs 01/17/22 11:57 BP 127/70 H Blood Pressure Location Rt brachial Position Sitting Respiration 16 Pulse 66 Pulse Source Monitor Temp 98 F Temperature Source Tympanic Pulse Oximetry (%) 100 Oxygen Delivery Method room air Intake Visit Reasons: OTV Chief Complaint: Recurrent squamous cell cancer of the head and neck on treatment 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 Seasonal Required: No Is patient in pain?: No [...] number: Chemotherapy: weekly carboplatin Subjective: Pain: 2-3 , jaw and leg (flap donor site); patient [...] via PEG, continue follow up, weight stable ASSOCIATE SALES MANAGER: continue following during XRT Rinses: continue recommended [...] Date (if applicable) Segundo Goldberg MD CC: Kamryn Gonzalez Work Phone: Start: 01-10-2022 End: 01-10-2022 Radiation Oncology Visit Comments: See Note; NOTES: [facility] [address] [place] [address] OFFICE VISIT Date of Service: 01/10/22 1033 MR#: [id number] Acct: [id number] Name: MY JAMA Rep #: [id number] : 1960 From: Santiago Sellers DO Age/Sex: 61/M Location: [facility] Status: Signed Intake Intake Visit Reasons: OTV Chief Complaint: Recurrent squamous cell cancer of the head and neck on treatment 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 Seasonal Required: No Is patient in pain?: Yes (chin and jaw at night) Pain scale (1-10): 6 Allergies No Known Allergies Allergy (Verified 01/10/22 09:14) PFSH PFS Medical History (Updated 01/10/22 @ 10:14 by Marce Maxwell BMET, BMET-C) Acid reflux Anemia Cancer related pain Cellulitis [...] via PEG, continue follow up, weight stable ASSOCIATE SALES MANAGER: continue following during XRT Rinses: continue recommended baking soda/salt rinses 4-6/d, green tea rinses 2-3/d Follow up next week or sooner if needed. Thank you for allowing me to participate in the management and care of your patient. If I may answer any questions in the interim, please do not hesitate to contact me at any time. Santiago Sellers DO, MS Graphic Designer, Department of Radiation Oncology 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 01/10/22 1221 <Electronically signed by Santiago Sellers DO> Date Santiago Sellers DO Cosigner Signature: Date (if applicable) CC: Kamryn Gonzalez Work Phone: Start: 01-10-2022 End: 01-10-2022 Oncology Visit Report Comments: See Note; NOTES: [facility] [address] [address] OFFICE VISIT Date of Service: 01/10/22911 MR#: [id number] Acct: [id number] Name: MY JAMA Rep #: [id number] : 1960 From: Marce Maxwell NP BMET -C Age/Sex: 61/M Location: [facility] Status: Signed HPI Subjective Date [...] FINDINGS: Supraclavicular: No acute process within the nuwgp-fz-ocrl. Body wall soft tissues: No acute process. [...] AE1-3 (AE1/AE3/PCK26) positive CK7 (OV-TL12/30) negative CK8 (80rsktS36) positive, weak CK20 (KS20.8) negative TTF-1 (8G7G3/1) [...] (Updated 01/10/22 @ 10:14 by Marce Maxwell NP, BMET-C) Acid reflux Anemia Cancer related pain Cellulitis [...] Status: Acute Plan - Marce Maxwell NP, AJAY-C: 60-year-old male ex-smoker, in addition to excessive [...] NP-C Cosigner Signature: Date (if applicable) CC: Kamryn Gonzalez Work Phone: Start: 01-08-2022 End: 01-08-2022 Modified Barium Swallow Study Comments: See Note; NOTES: [facility] Speech Pathology [address] [place] [address] Modified Barium Swallow Study MR#: [id number] Acct: [id number] Name: MY JAMA Rep #: [id number] : 1960 61 From: Latosha Boyer M.A., CCC-ASSOCIATE SALES MANAGER Modified Barium Swallow - Patient Information Study [...] Result: 3= enters airways/above vocal folds/not ejected [place] Thick Liquid via small single sip from [...] Active ST Patient: Active - Contact Information [facility] Speech Therapy:: Latosha Boyer M.A. CCC-ASSOCIATE SALES MANAGER Speech-Language Pathologist [facility] [address] [place] [address] [email or web address] [phone] 01/08/22 17:21 01/08/22 1739 <Electronically signed by Latosha Boyer M.A., CCC-S LP> Date/Time Latosha Boyer M.A., CCC-ASSOCIATE SALES MANAGER Co-Signature Required for all Medicare patients Date/Time Co-Signature CC: Kamryn Gonzalez Work Phone: Start: 01-08-2022 Videosingrid BMET-C Kamryn Gonzalez BMET Work Phone: Start: 01-04-2022 End: 01-08-2022 Radiation Oncology Visit Comments: See Note; NOTES: [facility] [address] [place] [address] OFFICE VISIT Date of Service: 01/04/22 0857 MR#: [id number] Acct: [id number] Name: MY JAMA Rep #: [id number] : 1960 From: Santiago Sellers DO Age/Sex: 61/M Location: [facility] Status: Signed Intake Vital Signs 01/04/22 08:57 Weight: 124 lb 7 oz BP 118/64 Blood Pressure Location Rt brachial Position Sitting Respiration 14 Pulse 70 Pulse Source Monitor Temp 98.7 F Temperature Source Tympanic Pulse Oximetry (%) 93 Oxygen Delivery Method room air Intake Visit Reasons: OTV Chief Complaint: Recurrent squamous cell cancer of the head and neck on treatment 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 Seasonal Required: No Is patient in pain?: No [...] Date (if applicable) Chago Junior MD CC: Kamryn Josefameganchioma Work Phone: Start: 01-03-2022 End: 01-03-2022 Oncology Visit Report Comments: See Note; NOTES: [facility] [place] [address] OFFICE VISIT Date of Service: 01/03/22919 MR#: [id number] Acct: [id number] Name: ANAMY W Rep #: [id number] : 1960 From: Quincy Simpson MD Age/Sex: 61/M Location: [facility] Status: Signed HPI Subjective Date [...] FINDINGS: Supraclavicular: No acute process within the rlzji-uo-voyn. Body wall soft tissues: No acute process. [...] AE1-3 (AE1/AE3/PCK26) positive CK7 (OV-TL12/30) negative CK8 (01cgthX71) positive, weak CK20 (KS20.8) negative TTF-1 (8G7G3/1) [...] of first interosseous muscles. Coordination / Balance: qxmpsu-fe-veuc test normal Speech: speech abnormal Gait (Neuro): [...] reviewed with patient . Quincy Simpson MD Graphic Designer, [facility] Divisions of Medical Oncology Hematology Department of Internal Medicine [place] [phone] This note was generated using a voice [...] MD Cosigner Signature: Date (if applicable) CC: Kamryn Gonzalez Work Phone: Start: 12-27-2021 End: 12-29-2021 Radiation Oncology Visit Comments: See Note; NOTES: [place] [address] OFFICE VISIT Date of Service: 12/27/21 1048 MR#: [id number] Acct: [id number] Name: MY JAMA Rep #: [id number] : 1960 From: Santiago Sellers DO Age/Sex: 61/M Location: [facility] Status: Signed Intake Intake Visit Reasons: OTV [...] delivered to infusion today per med onc BMET Nutrition/weight: Weight stable. Small volume mostly soft [...] and RT today. Discussed with Med Onc BMET Plan: Continue treatment as planned. I have [...] C41.1 12/29/21 1048 <Electronically signed by Santiago Verito DO> Date Santiago Sellers DO 12/27/21 1053<Electronically signed by Chago Junior MD> Cosigner Signature: Date (if applicable) Chago Junior MD CC: Kamryn Gonzalez Work Phone: Start: 12-27-2021 End: 12-27-2021 Oncology Visit Report Comments: See Note; NOTES: [facility] [address] [place] [address]. [place] [address] OFFICE VISIT Date of Service: 12/27/21 0858 MR#: [id number] Acct: [id number] Name: MY JAMA Rep #: [id number] : 1960 From: Marce Maxwell NP BMET -C Age/Sex: 61/M Location: [facility] Status: Signed HPI Subjective Date [...] FINDINGS: Supraclavicular: No acute process within the hwqdk-rz-hxya. Body wall soft tissues: No acute process. [...] AE1-3 (AE1/AE3/PCK26) positive CK7 (OV-TL12/30) negative CK8 (89mxijE23) positive, weak CK20 (KS20.8) negative TTF-1 (8G7G3/1) [...] atb was going to be called to [facility] in [place] last week, however pharmacy stated they never [...] (Updated 12/27/21 @ 12:21 by Marce Maxwell BMET, BMET-C) Acid reflux Anemia Cancer related pain Cellulitis [...] 96 Oxygen Delivery Method room air Intake 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 Seasonal Required: No Accompanied by: self Is patient [...] mL 0RF T81.89XD Plan - Marce Maxwell NP, BMET-C: 61-year-old male ex-smoker, in addition to excessive [...] send rx for doxycycline. Will have [facility] retail deliver to confirm patient goes home [...] 1222 <Electronically signed by Marce Maxwell NP BMET-C> Date Marce Maxwell NP BMET-C Cosigner Signature: Date (if applicable) CC: YARI Kamryn Gonzalez Work Phone: Start: 12-20-2021 End: 12-20-2021 Radiation Oncology Visit Comments: See Note; NOTES: [facility] [address] [place] [place] [address] OFFICE VISIT Date of Service: 12/20/21 1113 MR#: [id number] Acct: [id number] Name: MY JAMA Rep #: [id number] : 1960 From: Santiago Sellers DO Age/Sex: 61/M Location: [facility] Status: Signed Intake Vital Signs 12/20/21 11:13 Blood Pressure Location Rt brachial Position Sitting Respiration 18 Pulse 69 Pulse Source Monitor Temp 98.3 F Temperature Source Tympanic Pulse Oximetry (%) 98 Oxygen Delivery Method room air Intake Visit Reasons: OTV Chief Complaint: Recurrent squamous cell cancer of the head and neck on treatment 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 Seasonal Required: No Is patient in pain?: Yes [...] at any time. Santiago Sellers DO, MS Graphic Designer, Department of Radiation Oncology 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 [address] [place] [address] / REHABILITATION SERVICES INITIAL EVALUATION MR#: [id number] Acct: [id number] Name: MY JAMA Rep #: [id number] : 1960 61 From: Latosha Boyer M.A., CCC-ASSOCIATE SALES MANAGER Referring DrBianca: Dr. 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 Santiago Sellers, MW Signed Kamryn Gonzalez Work Phone: Start: 12-18-2021 End: 12-18-2021 Venous Duplex US, Unilateral Comments: See Note; NOTES: [facility] Cardiovascular Services [address] [facility] [place] [address] Venous Duplex US, Unilateral 12/18/21 0958 MR#: [id number] Acct: [id number] Name: MY JAMA Rep #: [id number] : 1960 61 From: Donaldo Nichole MD [...] report was called and/or faxed augmentation. to [facility]. FV is compressible, spontaneous, phasic, competent and [...] _ Ordering Physician: Quincy Simpson Referring Physician: Kamryn Gonzalez Performed By: Janette Gaffney RVJono 12/18/211919 Date Donaldo Nichole MD CC: BMET-C Kamryn Gonzalez; Dr. Quincy Simpson MD Date Dictated: 12/18/21957 Date Transcribed: 12/18/211919 Marketing Proposal Specialist: Signed Kamryn Gonzalez Work Phone: Start: 12-18-2021 End: 12-18-2021 Oncology Visit Report Comments: See Note; NOTES: [facility] [address] [place] [address] OFFICE VISIT Date of Service: 12/18/2148 MR#: [id number] Acct: [id number] Name: MY JAMA Rep #: [id number] : 1960 From: Quincy Simpson MD Age/Sex: 61/M Location: [facility] Status: Signed HPI Subjective Date [...] FINDINGS: Supraclavicular: No acute process within the ezhww-hw-ngjt. Body wall soft tissues: No acute process. [...] AE1-3 (AE1/AE3/PCK26) positive CK7 (OV-TL12/30) negative CK8 (80mmssM33) positive, weak CK20 (KS20.8) negative TTF-1 (8G7G3/1) [...] this report are calculated using the exclusive [employer]. (U.S. Patent No. [id number] [id number] [phone]). [...] of first interosseous muscles. Coordination / Balance: rawmpm-xh-qvec test normal Speech: speech abnormal Gait (Neuro): [...] reviewed with patient . Quincy Simpson MD Graphic Designer, [facility] Divisions of Medical Oncology Hematology Department of Internal Medicine [place] [phone] This note was generated using a voice [...] MD Cosigner Signature: Date (if applicable) CC: BMET-C Kamryn Gonzalez; DO Kamryn Cantor Work Phone: Start: 12-15-2021 End: 12-15-2021 Emergency Department Summary Comments: See Note; NOTES: [facility] Medical Records Department [address] [facility] [place] [address] Emergency Department Summary 12/15/21 MR#: [id number] Acct: [id number] Name: MY JAMA Rep #: [id number] : 1960 61 From: Rayray Perez DO [...] a prescription for a short course of [place]. Patient was instructed to follow-up with Dr. [...] 75.7 H Lymph % (Auto) 11.1 L [place] % (Auto) 11.9 H Eos % (Auto) [...] Qty: 30 RF: 5 Primary Care Provider: Kamryn Gonzalez NP Referrals: Rachel Brooks MD [NON-STAFF] - Kamryn Gonzalez NP, AJAY-Damaris [Primary Care Provider] - Disposition Disposition: Home, Self Care What to do if you have Problems For any increased pain, shortness of breath, bleeding, nausea or vomiting, chest pain, or any unexpected problems, contact your Primary Care Provider. Call [facility] ([phone]) or report to the closest Emergency Room. Call 911 if necessary. 12/15/212211 <Electronically signed by Rayray Perez DO> Cosigner Signature (if applicable): CC: YARI Gonzalez Signed Kamryn Gonzalez Work Phone: Start: 12-10-2021 End: 12-10-2021 Emergency Department Summary Comments: See Note; NOTES: [facility] Medical Records Department [address] [place] [address] Emergency Department Summary 12/10/21 MR#: [id number] Acct: [id number] Name: MY JAMA Rep #: [id number] : 1960 61 From: Aiden Pierre DO PCP: YARI Pardo Status:REG ER Location: ED HPI History of Present Illness Chief Complaint: Shortness of Breath Narrative Narrative: as well as history of tracheostomy presenting tmw26-auky-lia male with history of head and neck [...] is unable to contact anybody on Saturday. [facility] Medical History Acid reflux Anemia Cancer [...] Qty: 30 RF: 5 Primary Care Provider: Kamryn Gonzalez NP Referrals: Kamryn Gonzalez NP, BMET-C [Primary Care Provider] - Disposition Disposition: Home, Self Care What to do if you have Problems For any increased pain, shortness of breath, bleeding, nausea or vomiting, chest pain, or any unexpected problems, contact your Primary Care Provider. Call [facility] ([phone]) or report to the closest Emergency Room. Call 911 if necessary. 12/10/211821 <Electronically signed by Aiden Pierre DO> Cosigner Signature (if applicable): CC: BMET-C Kamryn Gonzalez Signed Kamryn Gonzalez Work Phone: Start: 12-07-2021 End: 12-07-2021 Radiation Oncology Visit Comments: See Note; NOTES: [facility] [address] [place] [address] OFFICE VISIT Date of Service: 12/07/21 1424 MR#: [id number] Acct: [id number] Name: MY JAMA Rep #: [id number] : 1960 From: Santiago Sellers DO Age/Sex: 61/M Location: [facility] Status: Signed Intake Vital Signs 12/07/21 14:25 [...] lbs 4 oz (weight at end of FINANCIAL COORDINATOR 03/25/2019: 126.6 lbs) ECO KARNOFSKY SCORE: 80% [...] at any time. Santiago Sellers DO, MS Graphic Designer, Department of Radiation Oncology 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 Quincy Simpson MD; Dr. Rachel Brooks MD; MD Kamryn Felix Work Phone: Start: 12-05-2021 End: 12-18-2021 Emergency Department Summary Comments: See Note; NOTES: [facility] Medical Records Department [address] [place] [address] Emergency Department Summary 12/05/21 MR#: [id number] Acct: [id number] Name: MY JAMA Rep #: [id number] : 1960 61 From: Avinash Rod DO PCP: Kamryn Gonzalez BMET-C Status:REG ER Location: ED HPI Narrative Narrative: Patient is a 61-year-old male who has a history of jaw/throat cancer. He was recently at the [facility] for surgery of this jaw/throat [...] done with his recent stay at the [facility] and therefore does not want [...] Orders Clinical Impression: Dyspnea Primary Care Provider: Kamryn Gonzalez NP Referrals: Kamryn Gonzalez BMET, BMET-C [Primary Care Provider] - Disposition Disposition: Home, Self Care What to do if you have Problems For any increased pain, shortness of breath, bleeding, nausea or vomiting, chest pain, or any unexpected problems, contact your Primary Care Provider. Call [facility] Registry ([phone]) or report to the closest Emergency Room. Call 911 if necessary. 12/05/21 0567 <Electronically signed by Avinash Rod DO> Cosigner Signature (if applicable): CC: BMET-C Kamryn Gonzalez Signed Kamryn Gonzalez Work Phone: Start: 10-11-2021 End: 10-13-2021 PET/CT Tumor Base -Thigh Subs Comments: See Note; NOTES: [facility] Imaging Services [address] [place] [address] PET/CT Tumor Base -Thigh Subs MR#: [id number] Acct: [id number] Name: MY JAMA Rep #: [id number] : 1960 M 61 From: Narendra Seay PCP: YARI Pardo Status: REG RCR Study: PET/CT Tumor Base -Thigh Subs Date of Exam: Exam# [id number] Ordering Dr: Quincy Simpson MD EXAMINATION: FDG [...] this report are calculated using the exclusive [employer]. (U.S. Patent No. 10, 674, 983). Standardization and correction of the FDG SUV metric via [employer] technology allow for vendor non-specific objective quantitative examination comparison and optimization of the sensitivity and specificity of the FDG PET-CT examination. Electronically Signed: Narendra Weathers DO at 22:31 EST Tel , Service support , CC: YARI Gonzalez; Dr. Quincy Simpson MD Marketing Proposal Specialist: Signed Kamryn Gonzalez CONCRETE PUMP OPERATOR HELPER Work Phone: Start: 10-11-2021 PET/CT Tumor Base -Thigh Subs BMET-C Kamryn Gonzalez BMET Work Phone: Start: 08-23-2021 CT of soft tissues of neck with contrast BMET-C Kamryn Gonzalez BMET Work Phone: Start: 08-23-2021 End: 08-24-2021 Chest PA and Lateral Comments: See Note; NOTES: [facility] Imaging Services [address] [place] [address] Chest PA and Lateral MR#: [id number] Acct: [id number] Name: MY JAMA Rep #: [id number] : 1960 M 61 From: Bib ghosh MD PCP: YARI Pardo Status: REG RCR Study: Chest PA and Lateral Date of Exam: 08/23/21 Exam# [id number] Ordering Dr: Joya Galvez NP N P-C [...] support , CC: YARI Galvez; YARI Gonzalez Marketing Proposal Specialist: Signed Kamryn Gonzalez CONCRETE PUMP OPERATOR HELPER Work Phone: Start: 08-23-2021 Plain chest X-ray BMET-Damaris Gonzalez BMET Work Phone: Start: 08-23-2021 End: 08-24-2021 Soft Tissue Neck WITH Contrast Comments: See Note; NOTES: [facility] Imaging Services [address] [place] [address] Soft Tissue Neck WITH Contrast MR#: [id number] Acct: [id number] Name: MY JAMA Rep #: [id number] : 1960 M 61 From: Bib ghosh MD PCP: YARI Pardo Status: REG CLI Study: Soft Tissue Neck WITH Contrast Date of Exam: 10/24/20 Exam# [id number] Ordering Dr: Sanitago Sellers DO STUDY: CT SOFT TISSUE NECK [...] be. Normal bilateral parotid glands. Normal bilateral guest relations coordinator spaces. Normal bilateral parapharyngeal spaces. Normal bilateral [...] CC: YARI Gonzalez; Dr. 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: PLAN: [facility] preauthorization with insurance [employer] 2 YARELIS for 90 minutes without air [...] Start: 08/23/21 08:10 Freq: Status: Active Protocol: .LOWEXT Activity Type Activity Date Activity User E-Sign Co-Sign Detail Recorded Client Recorded Date Recorded By Document 08/23/21 08:11 VIC [id number] 08/23/21 08:25 VIC 08/23/21 08:11 - Today's [...] 0918 <Electronically signed by Joya Galvez NP BMET-C> Cosigner Signature (if applicable): CC: Signed Kamryn Gonzalez CNP Work Phone: Start: 08-11-2021 End: 08-11-2021 Radiation Oncology Visit Comments: See Note; NOTES: [facility] [place] [address] OFFICE VISIT Date of Service: 08/11/21 1036 MR#: [id number] Acct: [id number] Name: MY JAMA Rep #: [id number] : 1960 From: Santiago Sellers Age/Sex: 61/M Location: [facility] Status: Signed Intake Vital Signs 08/11/21 10:36 Weight: 129 lb 2 oz BP 181/82 H Blood Pressure Location Lt brachial Position Sitting Respiration 14 Pulse 82 Pulse Source Monitor Temp 98.2 F Temperature Source Tympanic Pulse Oximetry (%) 100 Oxygen Delivery Method room air Intake Visit Reasons: FOLLOWUP HEAD/NECK Chief Complaint: squamous cell cancer of the head and neck follow-up 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 Seasonal Required: No Is patient in pain?: No Allergies No Known Allergies Allergy (Verified 08/11/21 10:38) Medications Levothyroxine 75 mg PO DAILY 08/25/20 [History Confirmed 08/11/21] pentoxifylline 400 mg tablet,extended release 400 mg PO TID #90 tab 05/17/21 [Rx Confirmed 08/11/21] vitamin E mixed 1,000 unit capsule 1,000 unit PO DAILY #30 cap 05/17/21 [Rx Confirmed 08/11/21] PFSH [facility] Medical History (Updated 07/26/21 @ 00:00 by [...] lbs 2 oz (weight at end of FINANCIAL COORDINATOR 03/25/2019: 126.6 lbs) ECO KARNOFSKY SCORE: 80% [...] He will also continue to follow-up with ASSOCIATE SALES MANAGER as indicated but is swallowing well. He [...] at any time. Santiago Sellers DO, MS Graphic Designer, Department of Radiation Oncology [facility] Coding Level of Care Code Off vis,est,level 3 Diagnoses History of head and neck cancer Z85.89 08/11/21 1124 <Electronically signed by Santiago Sellers DO> Date Santiago Sellers DO Cosigner Signature: Date (if applicable) CC: YARI Gonzalez; Dr. Renny Burgos MD; Dr. Quincy Simpson MD; Dr. Crescencio Morales DDS Kamryn Gonzalez CONCRETE PUMP OPERATOR HELPER Work Phone: Start: 07-18-2021 End: 07-19-2021 Emergency Department Summary Comments: See Note; NOTES: [facility] Medical Records Department [address] [place] [address] Emergency Department Summary 07/18/21 MR#: [id number] Acct: [id number] Name: MY JAMA Rep #: [id number] : 1960 61 From: Jason Robles DO [...] was concerned about potential for systemic infection. [facility] Medical History (Updated 07/18/21 @ 15:[address] Jason Robles ) Acid reflux Anemia Cancer related pain [...] % (Auto) 65.9 Lymph % (Auto) 20.1 [place] % (Auto) 11.9 H Eos % (Auto) [...] Qty: 30 RF: 5 Primary Care Provider: Kamryn Gonzalez NP Referrals: Kamryn Gonzalez NP, BMET-C [Primary Care Provider] - 3-5 Days Disposition Disposition: Home, Self Care What to do if you have Problems For any increased pain, shortness of breath, bleeding, nausea or vomiting, chest pain, or any unexpected problems, contact your Primary Care Provider. Call [facility] ([phone]) or report to the closest Emergency Room. Call 911 if necessary. 07/18/21 1554 <Electronically signed by Jason Robles DO> Cosigner Signature (if applicable): CC: BMETLulu Gonzalez Signed Kamryn Gonzalez CONCRETE PUMP OPERATOR HELPER Work Phone: Start: 07-18-2021 End: 07-18-2021 CTA Head AND Neck W/ Contrast Comments: See Note; NOTES: [facility] Imaging Services [address] [place] [address] CTA Head AND Neck W/ Contrast MR#: [id number] Acct: [id number] Name: MY JAMA Rep #: [id number] : 1960 M 61 From: Bib ghosh MD PCP: YARI Pardo Status: REG ER Study: CTA Head AND Neck W/ Contrast Date of Exam: Exam# [id number] Ordering Dr: Jason Robles DO STUDY: CTA [...] There is no demonstrated aneurysm of the [place] of [place]. A tiny lacuna is seen [...] CC: YARI Gonzalez; Dr. Jason Robles DO Marketing Proposal Specialist: Signed Kamryn Gonzalez CONCRETE PUMP OPERATOR HELPER Work Phone: Start: 05-15-2021 End: 08-23-2021 Radiation Oncology Visit Comments: See Note; NOTES: [facility] [address] [place] [address] OFFICE VISIT Date of Service: 05/15/21 1058 MR#: [id number] Acct: [id number] Name: MY JAMA Rep #: [id number] : 1960 From: Santiago Sellers DO Age/Sex: 60/M Location: [facility] Status: Signed Intake Vital Signs 05/15/21 10:58 Weight: 124 lb BP 166/85 H Blood Pressure Location Lt brachial Position Sitting Respiration 14 Pulse 86 Pulse Source Monitor Temp 98.2 F Temperature Source Tympanic Pulse Oximetry (%) 98 Oxygen Delivery Method room air Intake Visit Reasons: FOLLOWUP HEAD/NECK CANCER Chief Complaint: squamous cell cancer of the head and neck follow-up 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 He [...] at any time. Santiago Sellers DO, MS Graphic Designer, Department of Radiation Oncology [facility] Coding Level of Care Code Off vis,est,level 3 Diagnoses History of head and neck cancer Z85.89 05/15/21 1124 <Electronically signed by Santiago Sellers DO> Date Santiago Sellers DO Cosigner Signature: Date (if applicable) CC: YARI Gonzalez; Dr. Renny Burgos MD; MD Kamryn Zaman CONCRETE PUMP OPERATOR HELPER Work Phone: Start: 03-20-2021 End: 03-20-2021 Radiation Oncology Visit Comments: See Note; NOTES: [facility] [address] 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 He [...] at any time. Santiago Sellers DO, MS Graphic Designer, Department of Radiation Oncology [facility] Coding Level of Care Code Off vis,est,level 3 Diagnoses History of head and neck cancer Z85.89 03/20/21 1202 <Electronically signed by Santiago Verito DO> Date Santiago Doe Signature: Date (if applicable) CC: BMET-C Kamryn Gonzalez; Dr. Renny Burgos MD; MD Kamryn Zaman CONCRETE PUMP OPERATOR HELPER Work Phone: Start: 03-08-2021 End: 03-08-2021 Oncology Visit Report Comments: See Note; NOTES: [facility] [address] [place], [place] [address] [place] [address] OFFICE VISIT Date of Service: 03/08/21 0950 MR#: [id number] Acct: [id number] Name: MY JAMA Rep #: [id number] : 1960 From: Quincy Simpson MD Age/Sex: 60/M Location: [facility] Status: Signed HPI Subjective Date [...] FINDINGS: Supraclavicular: No acute process within the mpviw-bv-omjn. Body wall soft tissues: No acute process. [...] AE1-3 (AE1/AE3/PCK26) positive CK7 (OV-TL12/30) negative CK8 (31dlmjM49) positive, weak CK20 (KS20.8) negative TTF-1 (8G7G3/1) [...] 100 Oxygen Delivery Method room air Intake 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 Seasonal Required: No Accompanied by: Self Is patient [...] no focal motor deficits Coordination / Balance: ibixgv-yg-pmge test normal Speech: speech normal Gait (Neuro): [...] reviewed with patient . Quincy Simpson MD Graphic Designer, [facility] Divisions of Medical Oncology Hematology Department of Internal Medicine [address] [address] This note was generated using a voice [...] MD Cosigner Signature: Date (if applicable) CC: BMET-C Kamryn Gonzalez CONCRETE PUMP OPERATOR HELPER Work Phone: Start: 02-27-2021 End: 02-27-2021 Chest WITH Contrast Comments: See Note; NOTES: [facility] Imaging Services [address] [place] [address] Chest WITH Contrast MR#: [id number] Acct: [id number] Name: MY JAMA Rep #: [id number] : 1960 M 60 From: Bib ghosh MD PCP: YARI Pardo Status: REG CLI Study: Chest WITH Contrast Date of Exam: 02/27/21 Exam# [id number] Ordering Dr: Quincy Simpson MD STUDY: CT [...] CC: YARI Gonzalez; Dr. Quincy Simpson MD Marketing Proposal Specialist: Signed Kamryn Gonzalez CONCRETE PUMP OPERATOR HELPER Work Phone: Start: 11-28-2020 End: 11-28-2020 Oncology Visit Report Comments: See Note; NOTES: [facility] [address] [place] [address] OFFICE VISIT Date of Service: 11/28/20 1544 MR#: [id number] Acct: [id number] Name: ANAMY W Rep #: [id number] : 1960 From: Quincy Simpson MD Age/Sex: [...] FINDINGS: Supraclavicular: No acute process within the ajeup-vu-qcqc. Body wall soft tissues: No acute process. [...] AE1-3 (AE1/AE3/PCK26) positive CK7 (OV-TL12/30) negative CK8 (58azehO79) positive, weak CK20 (KS20.8) negative TTF-1 (8G7G3/1) [...] reviewed with patient . Quincy Simpson MD Graphic Designer, [facility] Divisions of Medical Oncology Hematology Department of Internal Medicine [place] [address] This note was generated using a voice [...] Recorded Levothyroxine PO 08/25/20 Primary Care Provider: Kamryn Gonzalez NP Referring Provider: 11/28/20 0267 <Electronically signed by Quincy Simpson MD> Date Quincy Simpson MD Cosigner Signature: Date (if applicable) CC: BMETChristineC Kamryn Gonzalez Start: 10-31-2020 End: 10-31-2020 Oncology Follow-Up Visit Comments: See Note; NOTES: [facility] Medical Records Department [address] [place] [address] Oncology Follow-Up Visit 10/31/20 1611 MR#: [id number] Acct: [id number] Name: MY JAMA Rep #: [id number] : 1960 60 From: Santiago Sellers DO PCP: YARI Pardo Status:REG RCR Y Location: [facility] Date of Service: 10/31/20 Last Clinic Visit: [...] Weight: 128.2 lbs (weight at end of FINANCIAL COORDINATOR 03/25/2019: 126.6 lbs) Vital Signs Temperature 99.4 [...] will also continue to follow- up with ASSOCIATE SALES MANAGER as indicated but is swallowing well. He [...] in the interim. Santiago Sellers DO, MS Graphic Designer, Department of Radiation Oncology [facility] 10/31/20 1622 <Electronically signed by Santiago Sellers DO> Date Santiago Sellers DO CC: Dr. Renny Burgos MD; Dr. Quincy Simpson MD Signed Kamryn Gonzalez Start: 09-02-2020 End: 09-02-2020 Chest WITH Contrast Comments: See Note; NOTES: [facility] Imaging Services [address] [place] [address] Chest WITH Contrast MR#: [id number] Acct: [id number] Name: MY JAMA Rep #: [id number] : 1960 M 60 From: Gin Tyler PCP: YARI Pardo Status: REG CLI Study: Chest WITH Contrast Date of Exam: 09/02/20 Exam# [id number] Ordering Dr: Quincy Simpson MD STUDY: CT [...] one year is advised. Electronically Signed: Gin Gina, at 21:42 EST Tel , Service support , CC: YARI Gonzalez; Dr. Quincy Simpson MD Marketing Proposal Specialist: Signed Kamryn Gonzalez Start: 08-25-2020 End: 08-25-2020 Oncology Visit Report Comments: See Note; NOTES: [facility] [address] [place] [address] OFFICE VISIT Date of Service: 08/25/20 1506 MR#: [id number] Acct: [id number] Name: MY JAMA Rep #: [id number] : 1960 From: Quincy Simpson MD Age/Sex: [...] FINDINGS: Supraclavicular: No acute process within the ydebx-vm-kaef. Body wall soft tissues: No acute process. [...] AE1-3 (AE1/AE3/PCK26) positive CK7 (OV-TL12/30) negative CK8 (10dzmqR76) positive, weak CK20 (KS20.8) negative TTF-1 (8G7G3/1) [...] reviewed with patient . Quincy Simpson MD Graphic Designer, [facility] Divisions of Medical Oncology Hematology Department of Internal Medicine [place] [address] This note was generated using a voice [...] Instructions Recorded Levothyroxine 08/25/20 Primary Care Provider: Kamryn Gonzalez NP Referring Provider: 08/25/20 4089 <Electronically signed by Quincy Simpson MD> Date Quincy Simpson MD Cosigner Signature: Date (if applicable) CC: Dr. Renny Burgos MD; Dr. Santiago Sellers, DO Kamryn Gonzalez Start: 04-13-2020 End: 04-14-2020 Oncology Visit Report Comments: See Note; NOTES: [facility] [place] [address] OFFICE VISIT Date of Service: 04/13/20 1512 MR#: [id number] Acct: [id number] Name: MY JAMA Rep #: [id number] : 1960 From: Quincy Simpson MD Age/Sex: [...] FINDINGS: Supraclavicular: No acute process within the rsbcv-hx-ulqm. Body wall soft tissues: No acute process. [...] AE1-3 (AE1/AE3/PCK26) positive CK7 (OV-TL12/30) negative CK8 (47ydewG08) positive, weak CK20 (KS20.8) negative TTF-1 (8G7G3/1) [...] reviewed with patient . Quincy Simpson MD Graphic Designer, [facility] Divisions of Medical Oncology Hematology Department of Internal Medicine [place] [address] This note was generated using a voice recognition system software. Although it was reviewed by the author prior to finalization, it may still contain incorrect words, spelling, and punctuation that were not noted when reviewing prior to saving. If a clinically significant typo or inaccurately typed phrase is noted, please notify the author. Primary Care Provider: Kamryn Gonzalez NP Referring Provider: 04/13/20 1532 <Electronically signed by Quincy Simpson MD> Date Quincy Simpson MD Cosigner Signature: Date (if applicable) CC: Dr. Santiago Sellers, DO Kamryn Gonzalez Start: 04-12-2020 End: 04-12-2020 Oncology Follow-Up Visit Comments: See Note; NOTES: [facility] Medical Records Department [address] [place] [address] Oncology Follow-Up Visit 04/12/20 1543 MR#: [id number] Acct: [id number] Name: MY JAMA Rep #: [id number] : 1960 59 From: Santiago Sellers DO PCP: ERWIN PardoC Status:REG RCR Y Location: [facility] Date of Service: 04/12/20 Last Clinic Visit: [...] Weight: 128.8 lbs (weight at end of FINANCIAL COORDINATOR 03/25/2019: 126.6 lbs) Vital Signs Temperature 97.3 [...] He will also continue to follow-up with ASSOCIATE SALES MANAGER for continued improvement of his swallowing, he [...] in the interim. Santiago Sellers DO, MS Graphic Designer, Department of Radiation Oncology [facility] 04/12/20 9592 <Electronically signed by Santiago Sellers DO> Date Santiago Sellers DO CC: Dr. Renny Burgos MD; Dr. Quincy Simpson MD Signed Kamryn Gonzalez Start: 04-06-2020 End: 04-06-2020 Chest WITH Contrast Comments: See Note; NOTES: [facility] Imaging Services [address] [place] [address] Chest WITH Contrast MR#: [id number] Acct: [id number] Name: MY JAMA Rep #: [id number] : 1960 M 59 From: Jono Ackerman i, MD PCP: Kamryn Gonzalez, BMET-C Status: REG CLI Study: Chest WITH Contrast Date of Exam: 04/06/20 Exam# [id number] Ordering Dr: Quincy Simpson MD STUDY: CT [...] CC: YARI Gonzalez; Dr. Quincy Simpson MD Marketing Proposal Specialist: Signed Kamryn Gonzalez Start: 03-30-2020 End: 03-30-2020 Modified Barium Swallow Study Comments: See Note; NOTE S: [facility] Speech Pathology [address] [place] [address] Modified Barium Swallow Study MR#: [id number] Acct: [id number] Name: MY JAMA Rep #: [id number] : 1960 59 From: Diomedes Bentley M.A., [facility]-ASSOCIATE SALES MANAGER PRIMARY / SECONDARY DIAGNOSIS: dysphagia (R13.12) CURRENT [...] with purees. IMAGE COUNT: Diomedes Bentley M.A., MARLEN, CBIS MBSImP Certified, LSVT Certified [facility] Speech-Language Pathology Department Email: [email or web address] 03/30/201800 <Electronically signed by Diomedes Bentley M.A., DANAES LP> Date DANAE Rivera M.A.ASSOCIATE SALES MANAGER Co-Signature Required for all Medicare patients Date/Time _ Co-Signature CC: Kamryn Monica Start: 01-13-2020 End: 01-13-2020 Oncology Visit Report Comments: See Note; NOTES: [facility] [address] [place] [address] OFFICE VISIT Date of Service: 01/13/20 1307 MR#: [id number] Acct: [id number] Name: MY JAMA Rep #: [id number] : 1960 From: Quincy Simpson MD Age/Sex: [...] FINDINGS: Supraclavicular: No acute process within the wkkol-wf-cmqg. Body wall soft tissues: No acute process. [...] AE1-3 (AE1/AE3/PCK26) positive CK7 (OV-TL12/30) negative CK8 (19wibqL01) positive, weak CK20 (KS20.8) negative TTF-1 (8G7G3/1) [...] reviewed with patient . Quincy Simpson MD Graphic Designer, [facility] Divisions of Medical Oncology AND Hematology Department of Internal Medicine [facility] [place] [address] This note was generated using a voice [...] tab PO DAILY 01/05/19 Primary Care Provider: Kamryn Gonzalez NP Referring Provider: 01/13/20 1326 <Electronically signed by Quincy Simpson MD> Date Quincy Simpson MD Cosigner Signature: Date (if applicable) CC: Kamryn Gonzalez Start: 10-14-2019 End: 10-14-2019 Oncology Visit Report Comments: See Note; NOTES: [place] [address] OFFICE VISIT Date of Service: 10/14/19 1303 MR#: [id number] Acct: [id number] Name: MY JAMA Rep #: [id number] : 1960 From: Quincy Simpson MD Age/Sex: [...] FINDINGS: Supraclavicular: No acute process within the dfyfy-dn-zmox. Body wall soft tissues: No acute process. [...] AE1-3 (AE1/AE3/PCK26) positive CK7 (OV-TL12/30) negative CK8 (56rmtoU06) positive, weak CK20 (KS20.8) negative TTF-1 (8G7G3/1) [...] of the first interosseous space muscles predating sokaogon therapy Skin:: Negative for: Lesions, Rash, Petechiae, [...] reviewed with patient . Quincy Simpson MD Graphic Designer, [facility] Divisions of Medical Oncology AND Hematology Department of Internal Medicine [place] [phone] This note was generated using a voice [...] tab PO DAILY 01/05/19 Primary Care Provider: Kamryn Gonzalez NP Referring Provider: 10/14/19 1338 <Electronically signed by Quincy Simpson MD> Date Quincy Simpson MD Cosigner Signature: Date (if applicable) CC: DO Kamryn Jorgensen Start: 10-07-2019 End: 10-07-2019 Chest WITH Contrast Comments: See Note; NOTES: [facility] Imaging Services [address] [place] [address] Chest WITH Contrast MR#: [id number] Acct: [id number] Name: MY JAMA Rep #: [id number] : 1960 M 59 From: Primo Medina DO PCP: ERWIN PardoC Status: REG CLI Study: Chest WITH Contrast Date of Exam: 10/07/19 Exam# [id number] Ordering Dr: Quincy Simpson MD STUDY: CT [...] Primo Medina DO at 22:52 EST Tel [phone], Service support , CC: YARI Gonzalez; Quincy Simpson MD Marketing Proposal Specialist: Signed Kamryn Gonzalez Start: 10-01-2019 End: 10-01-2019 Oncology Follow-Up Visit Comments: See Note; NOTES: [facility] Medical Records Department [address] [place] [address] Oncology Follow-Up Visit 10/01/19 1541 MR#: [id number] Acct: [id number] Name: MY JAMA Rep #: [id number] : 1960 59 From: Santiago Sellers DO PCP: YARI Pardo Status: REG RCR Y Location: [facility] Date of Service: 10/01/19 Last Clinic Visit: [...] Weight: 124 lbs (weight at end of FINANCIAL COORDINATOR 03/25/2019: 126.6 lbs) Vital Signs Temperature 99 [...] He will also continue to follow-up with ASSOCIATE SALES MANAGER for continued improvement of his swallowing. He [...] in the interim. Santiago Sellers DO, MS Graphic Designer, Department of Radiation Oncology [facility] 10/01/19 9780 <Electronically signed by Santiago Sellers DO> Date Santiago Sellers DO CC: Rachel Brooks MD; Jim Burgos MD; Quincy Simpson MD Signed Kamryn Gonzalez Start: 07-16-2019 End: 07-16-2019 Oncology Visit Report Comments: See Note; NOTES: [facility] [place] [address] OFFICE VISIT Date of Service: 07/16/19 1356 MR#: [id number] Acct: [id number] Name: MY JAMA Rep #: [id number] : 1960 From: Quincy Simpson MD Age/Sex: [...] FINDINGS: Supraclavicular: No acute process within the rilpy-ij-kose. Body wall soft tissues: No acute process. [...] AE1-3 (AE1/AE3/PCK26) positive CK7 (OV-TL12/30) negative CK8 (59feesB81) positive, weak CK20 (KS20.8) negative TTF-1 (8G7G3/1) [...] reviewed with patient . Quincy Simpson MD Graphic Designer, [facility] Divisions of Medical Oncology AND Hematology Department of Internal Medicine [facility] [place] [address] This note was generated using a voice [...] PRN #240 ml 05/19/19 Primary Care Provider: Kamryn Ciesa, BMET Referring Provider: 07/16/19 [facility] <Electronically signed by Quincy Simpson MD> Date Quincy Simpson MD Cosigner Signature: Date (if applicable) CC: Kamryn Gonzalez Start: 07-02-2019 End: 07-02-2019 Oncology Follow-Up Visit Comments: See Note; NOTES: [facility] Medical Records Department [address] [place] [address] Oncology Follow-Up Visit 07/02/19 1412 MR#: [id number] Acct: [id number] Name: MY JAMA Rep #: [id number] : 1960 59 From: Santiago Sellers DO PCP: YARI Pardo Status: REG RCR Y Location: [facility] Date of Service: 07/02/19 Last Clinic Visit: [...] Weight: 121 lbs (weight at end of FINANCIAL COORDINATOR 03/25/2019: 126.6 lbs) Vital Signs Temperature 100.3 [...] the clinical situation. PROCEDURE PERFORMED: Right Flexible Onzg-Bzwhvzui-Urxarwxubieh. CONSENT: Verbal informed consent was obtained prior [...] He will also continue to follow-up with ASSOCIATE SALES MANAGER for continued improvement of his swallowing. He [...] concerns in the interim. Santiago Sellers DO, Graphic Designer, Department of Radiation Oncology [facility] 07/02/19 9343 <Electronically signed by Santiago Sellers DO> Date Santiago Sellers DO CC: Rachel Brooks MD; Jim Burgos MD; Quincy Simpson MD Signed Kamryn Gonzalez Start: 06-29-2019 PET/CT Tumor Base -Thigh Subs BMET-C Kamryn Gonzalez BMET Work Phone: Start: 06-26-2019 End: 06-26-2019 Modified Barium Swallow Study Comments: See Note; NOTE S: [facility] Speech Pathology [address] [place] [address] Modified Barium Swallow Study MR#: [id number] Acct: [id number] Name: MY JAMA Rep #: [id number] : 1960 59 From: Diomedes Bentley M.A. [facility]-ASSOCIATE SALES MANAGER PRIMARY / SECONDARY DIAGNOSIS: dysphagia (R13.12) REFERRING [...] Thin liquids via straw (chin tuck): 1 [place] thickened liquids via straw (single sip): 1 [place] thickened liquids via straw (single sip): 1 [place] thickened liquids via straw (single sip): 1 [...] purees. IMAGE COUNT: [id number] Diomedes Bentley M.A., MARCIA-ASSOCIATE SALES MANAGER, CBIS MBSImP Certified, LSVT Certified [facility] Speech-Language Pathology Department [email or web address] 06/26/19 0388 <Electronically signed by Diomedes Bentley M.A., CCC-ASSOCIATE SALES MANAGER> Date Diomedes Bentley M.A., CCC-ASSOCIATE SALES MANAGER Co-Signature Required for all Medicare patients Date/Time _ Co-Signature CC: Kamryn Riveromeganchioam Start: 06-26-2019 End: 06-26-2019 Swallowing Function w/Video Comments: See Note; NOTES: [facility] Imaging Services [address] [place] [address] Swallowing Function w/Video MR#: [id number] Acct: [id number] Name: MY JAMA Rep #: [id number] : 1960 M 59 From: Bib Reeves MD PCP: Kamryn Gonzalez, BMET-C Status: REG CLI Study: Swallowing Function w/Video Date of Exam: 06/26/19 Exam# [id number] Ordering Dr: Santiago Sellers DO STUDY: SWALLOWING [...] , CC: YARI Gonzalez; Santiago Sellers DO Marketing Proposal Specialist: Signed Kamryn Gonzalez Start: 06-26-2019 End: 06-30-2019 PET/CT Tumor Base -Thigh Subs Comments: See Note; NOTE S: [facility] Imaging Services [address] [place] [address] PET/CT Tumor Base -Thigh Subs MR#: [id number] Acct: [id number] Name: MY JAMA Rep #: [id number] : 1960 M 59 From: Narendra Weathers DO PCP: YARI Pardo Status: REG RCR Study: PET/CT Tumor Base -Thigh Subs Date of Exam: 06/29/19 Exam# [id number] Ordering Dr: Quincy Simpson MD EXAMINATION: FDG [...] change attributed to apparent feeding tube placement. Bssv-L-Oxir-MediPort placement is noted. The prior defined morphologic-anatomic [...] , CC: YARI Gonzalez; Quincy Simpson MD Marketing Proposal Specialist: Signed Kamryn Gonzalez Start: 06-08-2019 End: 06-08-2019 Oncology Visit Report Comments: See Note; NOTES: [facility] [address] [place] [address]. [place] [address] OFFICE VISIT Date of Service: 06/08/19 1312 MR#: [id number] Acct: [id number] Name: MY JAMA Rep #: [id number] : 1960 From: Marce BUNN Age/Sex: 58/M [...] FINDINGS: Supraclavicular: No acute process within the tmbwb-es-poot. Body wall soft tissues: No acute process. [...] AE1-3 (AE1/AE3/PCK26) positive CK7 (OV-TL12/30) negative CK8 (08szkvY36) positive, weak CK20 (KS20.8) negative TTF-1 (8G7G3/1) [...] team. Engaged in lengthy conversation regarding potential senior care/late side effects associated with chemotherapy exposure, recommendations [...] of his treatment. Accepts referral to [facility] Tobacco Cessation Program. RTO on 07/16/19 to review results of PET/CT with Dr. 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 Marce Maxwell, MAIL PROCESSING MACHINE OPERATOR-CONCRETE PUMP OPERATOR HELPER, AOCNP Medications: Prescriptions This Visit Medication Instructions Recorded Thiamine Hydrochloride [Vitamin B1] 1 tab PO DAILY 01/05/19 Oxycodone HCl 5 mg PO Q6H PRN PRN #40 tablet 03/04/19 Oxycodone HCl 5 mg PO Q4H PRN PRN #60 tab 03/16/19 Primary Care Provider: Kamryn Gonzalez NP Referring Provider: - Problem List (1) Regional lymph node metastasis present Status: Chronic (2) Head and neck cancer Status: Chronic (3) Encounter for education Status: Resolved 06/08/19 8686 <Electronically signed by Marce HOODC> Date Marce BUNN Cosigner Signature: Date (if applicable) CC: Kamryn Gonzalez Start: 06-08-2019 End: 06-08-2019 End of Treatment Summary Comments: See Note; NOTES: [facility] [address] [place] [address] End of Treatment Summary Date of Service: 05/27/19 1618 MR#: [id number] Acct: [id number] Name: MY JAMA Rep #: [id number] : 1960 From: Marce BUNN Age/Sex: 58/M Location: [facility] Status: Signed General Information Primary Care Provider:: Kamryn Gonzalez Surgeon Name: Rachel Brooks Radiation Oncologist:: [...] 6-12 months Coordination Provider:: Quincy Simpson - Due July 2020 When/How often:: CT chest for [...] Physical activity Other comments:: Prepared by VINCE Shilrey, ANTOINETTEP. Delivered on 06/08/19 06/08/19 1400 <Electronically signed by Marce BUNN> Date Marce Maxwell BMET-C Gabrieligner Signature: Date (if applicable) CC: BMET-C Kamryn Gonzalez Start: 05-19-2019 End: 05-19-2019 Oncology Visit Report Comments: See Note; NOTES: [facility] [address] [place] [address] OFFICE VISIT Date of Service: 05/19/19 1136 MR#: [id number] Acct: [id number] Name: MY JAMA Rep #: [id number] : 1960 From: Quincy Simpson MD Age/Sex: [...] FINDINGS: Supraclavicular: No acute process within the lpbvd-ba-wozj. Body wall soft tissues: No acute process. [...] AE1-3 (AE1/AE3/PCK26) positive CK7 (OV-TL12/30) negative CK8 (09kkxcX10) positive, weak CK20 (KS20.8) negative TTF-1 (8G7G3/1) [...] with patient and family. Quincy Simpson MD Graphic Designer, [facility] Divisions of Medical Oncology AND Hematology Department of Internal Medicine [address] [address] This note was generated using a voice [...] PRN #40 tablet 03/04/19 Primary Care Provider: Kamryn Gonzalez NP Referring Provider: 05/19/19 1156 <Electronically signed by Quincy Simpson MD> Date Quincy Simpson MD Cosigner Signature: Date (if applicable) CC: DO Kamryn Jorgensen Start: 05-13-2019 End: 05-14-2019 Chest WITH Contrast Comments: See Note; NOTES: [facility] Imaging Services [address] [place] [address] Chest WITH Contrast MR#: [id number] Acct: [id number] Name: MY JAMA Rep #: [id number] : 1960 M 58 From: Ric Pelaez MD PCP: YARI Pardo Status: REG CLI Study: Chest WITH Contrast Date of Exam: 05/13/19 Exam# [id number] Ordering Dr: Quincy Simpson MD STUDY: CT [...] , CC: YARI Gonzalez; Quincy Simpson MD Marketing Proposal Specialist: Signed Kamryn Gonzalez Start: 04-28-2019 End: 04-28-2019 Oncology Visit Report Comments: See Note; NOTES: [facility] [address] [place] [address] OFFICE VISIT Date of Service: 04/28/19 1148 MR#: [id number] Acct: [id number] Name: MY JAMA Rep #: [id number] : 1960 From: Quincy Simpson MD Age/Sex: [...] FINDINGS: Supraclavicular: No acute process within the sgulc-kn-cllc. Body wall soft tissues: No acute process. [...] AE1-3 (AE1/AE3/PCK26) positive CK7 (OV-TL12/30) negative CK8 (87yybiC36) positive, weak CK20 (KS20.8) negative TTF-1 (8G7G3/1) [...] reviewed with patient . Quincy Simpson MD Graphic Designer, [facility] Divisions of Medical Oncology AND Hematology Department of Internal Medicine [place] [address] This note was generated using a voice [...] PRN #40 tablet 03/04/19 Primary Care Provider: Kamryn Gonzalez NP Referring Provider: 04/28/19 1214 <Electronically signed by Quincy Simpson MD> Date Quincy Simpson MD Cosigner Signature: Date (if applicable) CC: Kamryn Gonzalez Start: 04-21-2019 End: 04-21-2019 Oncology Visit Report Comments: See Note; NOTES: [facility] [address] [place] [address] OFFICE VISIT Date of Service: 04/21/19 1142 MR#: [id number] Acct: [id number] Name: MY JAMA Rep #: [id number] : 1960 From: Quincy Simpson MD Age/Sex: [...] FINDINGS: Supraclavicular: No acute process within the cgrug-sb-oews. Body wall soft tissues: No acute process. [...] AE1-3 (AE1/AE3/PCK26) positive CK7 (OV-TL12/30) negative CK8 (67hptxM81) positive, weak CK20 (KS20.8) negative TTF-1 (8G7G3/1) [...] Narendra Black, D.O. Electronically Signed: Narendra Weathers at 20:51 EDT Tel , Service support [...] reviewed with patient . Quincy Simpson MD Graphic Designer, [facility] Divisions of Medical Oncology AND Hematology Department of Internal Medicine [place] [address] This note was generated using a voice [...] 11:30 Active IV TuTh Primary Care Provider: Kamryn Gonzalez NP Referring Provider: 04/21/19 1144 <Electronically signed by Quincy Simpson MD> Date Quincy Simpson MD [facility] Signature: Date (if applicable) CC: Kamryn Gonzalez Start: 04-13-2019 End: 04-13-2019 Oncology Visit Report Comments: See Note; NOTES: [facility] [address] [place] [address] OFFICE VISIT Date of Service: 04/13/1940 MR#: [id number] Acct: [id number] Name: MY JAMA Rep #: [id number] : 1960 From: Quincy Simpson MD Age/Sex: [...] FINDINGS: Supraclavicular: No acute process within the knntn-af-apro. Body wall soft tissues: No acute process. [...] AE1-3 (AE1/AE3/PCK26) positive CK7 (OV-TL12/30) negative CK8 (70bujoL68) positive, weak CK20 (KS20.8) negative TTF-1 (8G7G3/1) [...] reviewed with patient . Quincy Simpson MD Graphic Designer, [facility] Divisions of Medical Oncology AND Hematology Department of Internal Medicine [place] [address] This note was generated using a voice [...] 09:20 Ordered IV MOWEFR Primary Care Provider: Kamryn Gonzalez NP Referring Provider: 04/13/19 0943 <Electronically signed by Quincy Simpson MD> Date Quincy Simpson MD Cosigner Signature: Date (if applicable) CC: Kamryn Monica Start: 04-06-2019 End: 04-06-2019 Oncology Follow-Up Visit Comments: See Note; NOTES: [facility] Medical Records Department [address] [place] [address] Oncology Follow-Up Visit 04/06/19 1053 MR#: [id number] Acct: [id number] Name: MY JAMA Rep #: [id number] : 1960 58 From: Santiago Sellers DO PCP: Kamryn Gonzalez NP Status: REG RCR Y Location: [facility] Date of Service: 04/06/19 Last Clinic Visit: [...] Weight: 121 lbs (weight at end of FINANCIAL COORDINATOR 03/25/2019: 126.6 lbs) Vital Signs Temperature 100.3 [...] in the interim. Santiago Sellers DO, MS Graphic Designer, Department of Radiation Oncology [facility] 04/06/19 1071 <Electronically signed by Santiago Sellers DO> Date Santiago Sellers DO CC: Rachel Brooks MD; Quincy Simpson MD Signed Kamryn Gonzalez Start: 04-06-2019 End: 04-06-2019 Oncology Visit Report Comments: See Note; NOTES: [facility] [address] [address] OFFICE VISIT Date of Service: 04/06/19 1030 MR#: [id number] Acct: [id number] Name: MY JAMA Rep #: [id number] : 1960 From: Quincy Simpson MD Age/Sex: [...] FINDINGS: Supraclavicular: No acute process within the sdjnh-is-jwdk. Body wall soft tissues: No acute process. [...] AE1-3 (AE1/AE3/PCK26) positive CK7 (OV-TL12/30) negative CK8 (24gnvbD42) positive, weak CK20 (KS20.8) negative TTF-1 (8G7G3/1) [...] reviewed with patient . Quincy Simpson MD Graphic Designer, [facility] Divisions of Medical Oncology AND Hematology Department of Internal Medicine [place] [address] This note was generated using a voice [...] PRN #40 tablet 03/04/19 Primary Care Provider: Kamryn Gonzalez NP Referring Provider: 04/06/19 1100 <Electronically signed by Quincy Simpson MD> Date Quincy Simpson MD Cosigner Signature: Date (if applicable) CC: Kamryn Gonzalez Start: 03-31-2019 Bacteria identified in Blood by Culture BMET-C Kamryn Gonzalez BMET Work Phone: Start: 03-30-2019 End: 03-30-2019 Oncology Visit Report Comments: See Note; NOTES: [facility] [place] [address] OFFICE VISIT Date of Service: 03/30/19940 MR#: [id number] Acct: [id number] Name: MY JAMA Rep #: [id number] : 1960 From: Quincy Simpson MD Age/Sex: [...] FINDINGS: Supraclavicular: No acute process within the jdlto-pz-dtpv. Body wall soft tissues: No acute process. [...] AE1-3 (AE1/AE3/PCK26) positive CK7 (OV-TL12/30) negative CK8 (55xryyU43) positive, weak CK20 (KS20.8) negative TTF-1 (8G7G3/1) [...] patient and his daughter. Quincy Simpson MD Graphic Designer, [facility] Divisions of Medical Oncology AND Hematology Department of Internal Medicine [place] [address] This note was generated using a voice [...] 09:25 Active IV MOWEFR Primary Care Provider: Kamryn Gonzalez NP Referring Provider: 03/30/19 1007 <Electronically signed by Quincy Simpson MD> Date Quincy Simpson MD Cosigner Signature: Date (if applicable) CC: Kamryn Gonzalez Start: 03-25-2019 End: 03-25-2019 End of Treatment Summary Comments: See Note; NOTES: [facility] [place] [address] End of Treatment Summary Date of Service: 03/25/19 1125 MR#: [id number] Acct: [id number] Name: MY JAMA Rep #: [id number] : 1960 From: Santiago Sellers DO Age/Sex: [...] this patient. Sincerely, Santiago Sellers DO, MS Graphic Designer, Department of Radiation Oncology [facility] 03/25/19 1145 <Electronically signed by Santiago Sellers DO> Date Santiago Sellers DO Cosignallison Signature: Date (if applicable) CC: AJAY Gonzalez; Rachel Brooks MD; Jim Burgos MD; MD Kamryn Hall Start: 03-25-2019 End: 03-25-2019 Radiation Oncology Visit Comments: See Note; NOTES: [facility] [address] [place] [address] OFFICE VISIT Date of Service: 03/25/19 1118 MR#: [id number] Acct: [id number] Name: MY JAMA Rep #: [id number] : 1960 From: Santiago Sellers DO Age/Sex: 58/M Location: ONC Status: Signed Date of Service: 03/25/19 Diagnosis: My Jama is a 58-year-old male diagnosed with 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 If I may answer any questions in the interim, please do not hesitate to contact me at any time. Santiago Sellers DO Department of Radiation Oncology [facility] 03/25/19 6057 <Electronically signed by Santiago Sellers DO> Date Santiago Sellers DO Cosigner Signature: Date (if applicable) CC: Kamryn Riverodanya Start: 03-23-2019 End: 03-23-2019 Oncology Visit Report Comments: See Note; NOTES: [facility] [address] [place] [address] OFFICE VISIT Date of Service: 03/23/19932 MR#: [id number] Acct: [id number] Name: MY JAMA Rep #: [id number] : 1960 From: Quincy Simpson MD Age/Sex: [...] FINDINGS: Supraclavicular: No acute process within the boyje-ul-lvod. Body wall soft tissues: No acute process. [...] AE1-3 (AE1/AE3/PCK26) positive CK7 (OV-TL12/30) negative CK8 (02redoP61) positive, weak CK20 (KS20.8) negative TTF-1 (8G7G3/1) [...] the combined modality phase Quincy Simpson MD Graphic Designer, [facility] Divisions of Medical Oncology AND Hematology Department of Internal Medicine [place] [address] This note was generated using a voice [...] 09:25 Ordered IV MOWEFR Primary Care Provider: Kamryn Gonzalez NP Referring Provider: 03/23/19 0938 <Electronically signed by Quincy Simpson MD> Date Quincy Simpson MD Cosigner Signature: Date (if applicable) CC: Kamryn Gonzalez Start: 03-18-2019 End: 03-18-2019 Radiation Oncology Visit Comments: See Note; NOTES: [place] [address] OFFICE VISIT Date of Service: 03/18/19 1353 MR#: [id number] Acct: [id number] Name: MY JAMA Rep #: [id number] : 1960 From: Santiago Sellers DO Age/Sex: [...] moist desquamation. No rash Fatigue: mild Pain: 5-03/02, mostly with swallowing, using MMW/oxycodone Dysgeusia: 60% [...] evidence of withdrawl Continue follow up with ASSOCIATE SALES MANAGER and Nutrition Services Thank you for allowing me to participate in the management and care of your patient. If I may answer any questions in the interim, please do not hesitate to contact me at any time. Santiago Sellers DO Department of Radiation Oncology [facility] 03/18/19 4024 <Electronically signed by Santiago Verito DO> Date Santiago Sellers DO Manley Signature: Date (if applicable) CC: Kamryn Gonzalez Start: 03-16-2019 End: 03-16-2019 Oncology Visit Report Comments: See Note; NOTES: [facility] [address] [place], [place] [address] [address] OFFICE VISIT Date of Service: 03/16/19929 MR#: [id number] Acct: [id number] Name: MY JAMA Rep #: [id number] : 1960 From: Quinyc Simpson MD Age/Sex: 58/M Location: ONC Status: [...] FINDINGS: Supraclavicular: No acute process within the unghy-yr-grth. Body wall soft tissues: No acute process. [...] AE1-3 (AE1/AE3/PCK26) positive CK7 (OV-TL12/30) negative CK8 (44atgsP30) positive, weak CK20 (KS20.8) negative TTF-1 (8G7G3/1) [...] the combined modality phase Quincy Simpson MD Graphic Designer, [facility] Divisions of Medical Oncology AND Hematology Department of Internal Medicine [place] [address] This note was generated using a voice [...] Cream] Days #1 tube Primary Care Provider: Kamryn Gonzalez NP Referring Provider: 03/16/19 1015 <Electronically signed by Quincy Simpson MD> Date Quincy Simpson MD Cosigner Signature: Date (if applicable) CC: Kamryn Gonzalez Start: 03-11-2019 End: 03-11-2019 Radiation Oncology Visit Comments: See Note; NOTES: [facility] [address] [address] OFFICE VISIT Date of Service: 03/11/19 1020 MR#: [id number] Acct: [id number] Name: MY JAMA Rep #: [id number] : 1960 From: Donaldo Gibbs MD Age/Sex: [...] mild Pain: 5-03/02, mostly with swallowing, using MMW/oxycodone Dysgeusia: 60% [...] evidence of withdrawl Continue follow up with ASSOCIATE SALES MANAGER and Nutrition Services Thank you for allowing me to participate in the management and care of your patient. If I may answer any questions in the interim, please do not hesitate to contact me at any time. Donaldo Gibbs MD Department of Radiation Oncology [facility] 03/11/19 1377 <Electronically signed by Donaldo Gibbs MD> Date Donaldo Manley Signature: Date (if applicable) CC: Kamryn Gonzalez Start: 03-09-2019 End: 03-09-2019 Oncology Visit Report Comments: See Note; NOTES: [facility] [address] [place] [address] OFFICE VISIT Date of Service: 03/09/19 1014 MR#: [id number] Acct: [id number] Name: MY JAMA Rep #: [id number] : 1960 From: Marce BUNN Age/Sex: 58/M [...] FINDINGS: Supraclavicular: No acute process within the rmpij-pa-hrfa. Body wall soft tissues: No acute process. [...] AE1-3 (AE1/AE3/PCK26) positive CK7 (OV-TL12/30) negative CK8 (30kpydA56) positive, weak CK20 (KS20.8) negative TTF-1 (8G7G3/1) [...] Cisplatin, sooner if issues arise. Marce Maxwell, MAIL PROCESSING MACHINE OPERATOR-CONCRETE PUMP OPERATOR HELPER, AOCNP Medications: Prescriptions This Visit Medication Instructions Recorded Lidocaine/Prilocaine 1 applicatio TP DAILY PRN PRN 30 01/05/19 [Lidocaine-Prilocaine Cream] Days #1 tube Primary Care Provider: Kamryn Gonzalez NP Referring Provider: - Problem List (1) Regional lymph node metastasis present Status: Acute (2) Head and neck cancer Status: Acute (3) Dehydration Status: Acute (4) Cancer related pain Status: Acute 03/09/19 1101 <Electronically signed by Marce HOODC> Date Marce HOODC Cosigner Signature: Date (if applicable) CC: Kamryn Gonzalez Start: 03-04-2019 End: 03-04-2019 Radiation Oncology Visit Comments: See Note; NOTES: [facility] [address] [place] [address] OFFICE VISIT Date of Service: 03/04/19 1453 MR#: [id number] Acct: [id number] Name: MY JAMA Rep #: [id number] : 1960 From: Santiago Sellers Age/Sex: 58/M [...] evidence of withdrawl Continue follow up with ASSOCIATE SALES MANAGER and Nutrition Services Thank you for allowing me to participate in the management and care of your patient. If I may answer any questions in the interim, please do not hesitate to contact me at any time. Santiago Sellers DO, MS Graphic Designer, Department of Radiation Oncology [facility] 03/04/19 4552 <Electronically signed by Santiago Sellers DO> Date Santiago Sellers DO Cosigner Signature: Date (if applicable) CC: Kamryn Riverodanya Start: 03-02-2019 End: 03-02-2019 Oncology Visit Report Comments: See Note; NOTES: [facility] [address] [address] OFFICE VISIT Date of Service: 03/02/19919 MR#: [id number] Acct: [id number] Name: MY JAMA Rep #: [id number] : 1960 From: Quincy Simpson MD Age/Sex: 58/M Location: [facility] Status: Signed - Problem List (1) [...] FINDINGS: Supraclavicular: No acute process within the uorzn-lg-psqf. Body wall soft tissues: No acute process. [...] AE1-3 (AE1/AE3/PCK26) positive CK7 (OV-TL12/30) negative CK8 (97keovM38) positive, weak CK20 (KS20.8) negative TTF-1 (8G7G3/1) [...] the combined modality phase Quincy Simpson MD Graphic Designer, [facility] Divisions of Medical Oncology AND Hematology Department of Internal Medicine [address] [address] This note was generated using a voice [...] PRN PRN 30 01/05/19 Primary Care Provider: Kamryn Gonzalez NP Referring Provider: 03/02/19 0925 <Electronically signed by Quincy Simpson MD> Date Quincy Simpson MD Cosigner Signature: Date (if applicable) CC: Kamryn Gonzalez Start: 02-25-2019 End: 02-25-2019 Radiation Oncology Visit Comments: See Note; NOTES: [facility] [address] [address] OFFICE VISIT Date of Service: 02/25/19 1033 MR#: [id number] Acct: [id number] Name: MY JAMA Rep #: [id number] : 1960 From: Santiago Sellers DO Age/Sex: [...] evidence of withdrawl Continue follow up with ASSOCIATE SALES MANAGER and Nutrition Services Thank you for allowing me to participate in the management and care of your patient. If I may answer any questions in the interim, please do not hesitate to contact me at any time. Santiago Sellers DO, MS Graphic Designer, Department of Radiation Oncology [facility] 02/25/19 1043 <Electronically signed by Santiago Sellers DO> Date Santiago Royignallison Signature: Date (if applicable) CC: Kamryn Monica Start: 02-23-2019 End: 02-23-2019 Oncology Visit Report Comments: See Note; NOTES: [facility] [address] [place] [address] OFFICE VISIT Date of Service: 02/23/19 1008 MR#: [id number] Acct: [id number] Name: MY JAMA Rep #: [id number] : 1960 From: Marce BUNN Age/Sex: 58/M [...] FINDINGS: Supraclavicular: No acute process within the oiltc-gm-txsp. Body wall soft tissues: No acute process. [...] AE1-3 (AE1/AE3/PCK26) positive CK7 (OV-TL12/30) negative CK8 (93aruuT88) positive, weak CK20 (KS20.8) negative TTF-1 (8G7G3/1) [...] Cisplatin, sooner if issues arise. Marce Maxwell, MAIL PROCESSING MACHINE OPERATOR-CONCRETE PUMP OPERATOR HELPER, AOCNP Medications: Prescriptions This Visit Medication Instructions Recorded Primary Care Provider: Kamryn Gonzalez NP Referring Provider: - Problem List (1) Regional lymph node metastasis present Status: Acute (2) Head and neck cancer Status: Acute 02/23/19 1101 <Electronically signed by Marce Maxwell BMET-C> Date Marcechioma KeyAlissa BMET-C Cosigner Signature: Date (if applicable) CC: Kamryn Gonzalez Start: 02-19-2019 End: 02-19-2019 SP Initial Evaluation Comments: See Note; NOTES: [facility] Speech Pathology [facility] [address] [place] [address] / REHABILITATION SERVICES INITIAL EVALUATION MR#: [id number] Acct: [id number] Name: MY JAMA Rep #: [id number] : 1960 58 From: Diomedes Bentley M.A., LALAY-ASSOCIATE SALES MANAGER Referring Dr.: Santiago Sellers DO Status: REG R Insurance: [facility] [place] [id number] Eval Date: SELF PAY INSURANCE REASON FOR REFERRAL: The Patient is a 58 year old male referred for a clinical assessment of the swallow function at [facility] on 02/13/2019 secondary to recently diagnosed clinical [...] for Xerostomia: Acute Reactions: Grade 0 (no spinning frame 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) [facility] Xerostomia Questionnaire: Sialorrhea Scoring Scale (SSS): 1/9 [...] normal activity; minor impact) Ndiaye Index of [place] in Activities of Daily Livin/6 (independent) Bathin [...] as needed post MBS Diomedes Bentley M.A., CCC-ASSOCIATE SALES MANAGER MBSImP Certified, LSVT Certified [facility] Speech-Language Pathology Department [email or web address] <Electronically signed by Diomedes Bentley M.A., CFY-ASSOCIATE SALES MANAGER> 02/19/19 1829 CC: [facility] Signed For Medicare only, by signing this I certify the plan of care. Physicians Signature Date Kamryn Gonzalez Start: 02-18-2019 End: 02-18-2019 Radiation Oncology Visit Comments: See Note; NOTES: [facility] [address] [place], [place] [address] [place] [address] OFFICE VISIT Date of Service: 02/18/19 1104 MR#: [id number] Acct: [id number] Name: MY JAMA Rep #: [id number] : 1960 From: Santiago Sellers DO Age/Sex: 58/M Location: [facility] Status: Signed Date of Service: 02/18/19 [...] evidence of withdrawl Continue follow up with ASSOCIATE SALES MANAGER and Nutrition Services Thank you for allowing me to participate in the management and care of your patient. If I may answer any questions in the interim, please do not hesitate to contact me at any time. Santiago Sellers DO, MS Graphic Designer, Department of Radiation Oncology [facility] 02/18/19 5121 <Electronically signed by Santiago Sellers DO> Date Santiago Sellers DO Cosigner Signature: Date (if applicable) CC: Kamryn Gonzalez Start: 02-17-2019 End: 02-17-2019 Oncology Visit Report Comments: See Note; NOTES: [facility] [address] [place] [address] OFFICE VISIT Date of Service: 02/17/19 1212 MR#: [id number] Acct: [id number] Name: ANAMY W Rep #: [id number] : 1960 From: Quincy Simpson MD Age/Sex: [...] FINDINGS: Supraclavicular: No acute process within the pktjm-ed-fgyw. Body wall soft tissues: No acute process. [...] AE1-3 (AE1/AE3/PCK26) positive CK7 (OV-TL12/30) negative CK8 (36mkgrA46) positive, weak CK20 (KS20.8) negative TTF-1 (8G7G3/1) [...] the combined modality phase Quincy Simpson MD Graphic Designer, [facility] Divisions of Medical Oncology AND Hematology Department of Internal Medicine [facility] [place] [address] This note was generated using a voice recognition system software. It may contain incorrect words, spelling, and punctuation that were not noted when reviewing the office note prior to saving. Medications: Prescriptions This Visit Medication Instructions Recorded Primary Care Provider: Kamryn Gonzalez NP Referring Provider: 02/17/19 1226 <Electronically signed by Quincy Simpson MD> Date Quincy Simpson MD Cosigner Signature: Date (if applicable) CC: Kamryn Gonzalez Start: 02-11-2019 End: 02-11-2019 Radiation Oncology Visit Comments: See Note; NOTES: [place] [address] OFFICE VISIT Date of Service: 02/11/19 0938 MR#: [id number] Acct: [id number] Name: MY JAMA Rep #: [id number] : 1960 From: Santiago Sellers DO Age/Sex: [...] evidence of withdrawl Continue follow up with ASSOCIATE SALES MANAGER and Nutrition Services Thank you for allowing me to participate in the management and care of your patient. If I may answer any questions in the interim, please do not hesitate to contact me at any time. Santiago Sellers DO, MS Graphic Designer, Department of Radiation Oncology [facility] 02/11/19 1110 <Electronically signed by Santiago Sellers DO> Date Santiago Sellers DO Cosigner Signature: Date (if applicable) CC: Kamryn Gonzalez Start: 02-10-2019 End: 02-10-2019 Oncology Visit Report Comments: See Note; NOTES: [facility] [address] [place] [address] OFFICE VISIT Date of Service: 02/10/19 0957 MR#: [id number] Acct: [id number] Name: MY JAMA Rep #: [id number] : 1960 From: Quincy Simpson MD Age/Sex: [...] FINDINGS: Supraclavicular: No acute process within the yxcyy-bd-csok. Body wall soft tissues: No acute process. [...] AE1-3 (AE1/AE3/PCK26) positive CK7 (OV-TL12/30) negative CK8 (46mttzV46) positive, weak CK20 (KS20.8) negative TTF-1 (8G7G3/1) [...] the combined modality phase Quincy Simpson MD Graphic Designer, [facility] Divisions of Medical Oncology AND Hematology Department of Internal Medicine [facility] [address] [address] This note was generated using a voice [...] 10 Days #30 01/05/19 Primary Care Provider: Kamryn Gonzalez NP Referring Provider: 02/10/19 1032 <Electronically signed by Quincy Simpson MD> Date Quincy Simpson MD Cosigner Signature: Date (if applicable) CC: Kamryn Gonzalez Start: 02-05-2019 End: 02-05-2019 Oncology Follow-Up Visit Comments: See Note; NOTES: [facility] Medical Records Department [address] [place], [place] [id number] Oncology Follow-Up Visit 02/05/19 1145 MR#: [id number] Acct: [id number] Name: MY JAMA Rep #: [id number] : 1960 58 From: Santiago Sellers DO PCP: Kamryn Gonzalez NP Status: REG RCR Y Location: [facility] Date of Service: 02/05/19 Last Clinic [...] in the interim. Santiago Sellers DO, MS Graphic Designer, Department of Radiation Oncology [facility] 02/05/19 7511 <Electronically signed by Santiago Sellers DO> Date Santiago Sellers DO CC: Rachel Brooks MD; Quincy Simpson MD Signed Kamryn Gonzalez Start: 02-04-2019 End: 02-04-2019 Surgery Visit Report Comments: See Note; NOTES: [facility] [address] [place] [address]. [address] [place] [address] OFFICE VISIT Date of Service: 02/03/19 MR#: [id number] Acct: [id number] Name: MY JAMA Rep #: [id number] : 1960 Provider: Nimo Ledesma PA-C Age/Sex: 58/M Location: 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 Is patient in pain?: No [...] PA-C Cosigner Signature: Date (if applicable) CC: AJAY Kamryn Gonzalez Start: 02-03-2019 End: 02-03-2019 Operative Report Comments: See Note; NOTES: [facility] Medical Records Department [address] [place] [address] Operative Report 01/26/19 1045 MR#: [id number] Acct: [id number] Name: MY JAMA Rep #: [id number] : 1960 58 From: Shane Gibson MD PCP: Kamryn Gonzalez NP Status: DEP [facility] Y Location: [facility] Problem List (1) Encounter for adjustment or [...] Gibson MD> Date Shane Gibson MD CC: BMET Kamryn Gonzalez; Shane Gibson MD Signed Kamryn Gonzalez Start: 01-26-2019 End: 01-26-2019 Operative Report - Endoscopy Comments: See Note; NOTES : [facility] Medical Records Department [address] [place] [address] Operative Report - Endoscopy MR#: [id number] Acct: [id number] Name: MY JAMA Rep #: [id number] : 1960 58 From: Shane Gibson MD PCP: Kamryn Gonzalez NP Status: REG [facility] 01/26/2019 Kamryn Gonzalez NP [address] [facility] [place] [address] Re : Upper GI endoscopy procedure for [...] me at Doctor phone number(s): , Fax: [phone], Work: . Sincerely, MD Shane Kuhn MD 01/26/2019 12:55:22 PM This report has been signed electronically. 01/26/19 1255 Date Shane Riosignallison Signature: Date (if indicated) CC: BMET Kamryn Gonzalez; Shane Gibson MD; OUT OF TOWN DOCTOR Date Dictated: 01/26/19 1200 Date Transcribed: Marketing Proposal Specialist: MICHELLE Signed Kamryn Katharinachioma Start: 01-26-2019 End: 01-26-2019 Discharge Instruction Comments: See Note; NOTES: [facility] Medical Records Department [address] [place] [address] Instructions for Home/Discharge Instructions 01/26/19 1158 MR#: [id number] Acct: [id number] Name: MY JAMA Rep #: [id number] : 1960 58 From: Shane Gibson MD PCP: Kamryn Gonzalez NP Status: REG [facility] Discharge Diet: No Restrictions - Pain medication [...] tab PRN Reason: Pain Primary Care Physician: Kamryn Gonzalez NP-C [Primary Care Provider] - Test Results: Test results from this visit will be discussed in further detail at your follow-up appointment, if applicable. Please Follow Up With: Shane Gibson MD - [phone] When: Please plan to follow up in 7 days in the office. 01/26/19 1159 <Electronically signed by Shane Gibson MD> Date Shane Gibson MD CC: BMET Kamryn Gonzalez Signed Kamryn Gonzalez Start: 01-26-2019 End: 01-26-2019 CXR for Line Placement Comments: See Note; NOTES: [facility] Imaging Services [address] [place] [address] CXR for Line Placement MR#: [id number] Acct: [id number] Name: MY JAMA Rep #: [id number] : 1960 M 58 From: Coy White DO PCP: Kamryn Gonzalez NP Status: [facility] Study: CXR for Line Placement Date of Exam: 01/26/19 Exam# [id number] Ordering Dr: Shane Gibson MD STUDY: X-RAY [...] EDT Tel , Service support , CC: BMET Kamryn Gonzalez; Shane Gibson MD Marketing Proposal Specialist: Signed Kamryn Gonzalez Start: 01-26-2019 End: 01-26-2019 History and Physical Exam Comments: See Note; NOTES: [facility] Medical Records Department [address] [place] [address] History and Physical 01/26/19 1044 MR#: [id number] Acct: [id number] Name: MY JAMA W Rep #: [id number] : 1960 58 From: Shane Gibson MD PCP: Kamryn Gonzalez NP Status: REG [facility] Y Location: [place] [address] History and Physical Date of Admission: 01/26/19 [facility] [address] [place] [address]. 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 Is patient in pain?: No [...] person, oriented to place, oriented to time [facility] Head: normocephalic, atraumatic Ears: external [...] signed by Shane Gibson MD> Date Shane Glasgower Signature: Date (if applicable) CC: BMET Kamryn Gonzalez; Shane Gibson MD Signed Kamryn Gonzalez Start: 01-21-2019 Basic metabolic 1998 panel - Serum or Plasma Rachel Brooks Start: 01-21-2019 CBC W Auto Differential panel - Blood Rachel Brooks Start: 01-21-2019 Coagulation Screen Rachel Brooks Start: 01-08-2019 End: 01-08-2019 Consultation Comments: See Note; NOTES: [facility] Medical Records Department [address] [place] [address] Consultation 01/08/19 1328 MR#: [id number] Acct: [id number] Name: MY JAMA Rep #: [id number] : 1960 58 From: Santiago Sellers DO PCP: Kamryn Gonzalez NP Status: REG RCR Y Location: [facility] Date of Service: 01/08/19 Referring Provider: [facility] vacation is [facility] and so like is staring screens so he is trying brain to check 4months vacation a week at [facility] on spring break so expensive man is disease with 4days 5 form is just a year we do it every there is there is 202 so is just part is so evidence of future latrice Diagnosis: My Jama is a 58-year-old male [...] at any time. Santiago Sellers DO, MS Graphic Designer, Department of Radiation Oncology [facility] Code Visit Office Visits / Consults: 13308 OV L4 New 01/08/19 1456 <Electronically signed by Santiago Sellers DO> Date Santiago Sellers DO [facility] Signature (if applicable): Date CC: AJAY Gonzalez; Jim Burgos MD; Shane Gibson MD; Quincy Simpson MD Signed Kamryn Gonzalez Start: 01-08-2019 End: 01-08-2019 Oncology Visit Report Comments: See Note; NOTES: [facility] [address] [place], [place] [address] [place] [address] OFFICE VISIT Date of Service: 01/08/19 1132 MR#: [id number] Acct: [id number] Name: MY JAMA Rep #: [id number] : 1960 From: Quincy Simpson MD Age/Sex: [...] FINDINGS: Supraclavicular: No acute process within the tpwta-gi-fwdm. Body wall soft tissues: No acute process. [...] AE1-3 (AE1/AE3/PCK26) positive CK7 (OV-TL12/30) negative CK8 (17xljkT93) positive, weak CK20 (KS20.8) negative TTF-1 (8G7G3/1) [...] 10 Days #30 01/05/19 Primary Care Provider: Kamryn Gonzalez NP Referring Provider: 01/08/19 1218 <Electronically signed by Quincy Simpson MD> Date Quinyc Simpson MD Cosigner Signature: Date (if applicable) CC: Kamryn Gonzalez Start: 01-05-2019 End: 01-05-2019 Oncology Visit Report Comments: See Note; NOTES: [facility] [address] [place] [address] OFFICE VISIT Date of Service: 01/05/19 1126 MR#: [id number] Acct: [id number] Name: MY JAMA Rep #: [id number] : 1960 From: Marce BUNN Age/Sex: 58/M [...] FINDINGS: Supraclavicular: No acute process within the yaxyn-lq-mwii. Body wall soft tissues: No acute process. [...] AE1-3 (AE1/AE3/PCK26) positive CK7 (OV-TL12/30) negative CK8 (88rthhQ38) positive, weak CK20 (KS20.8) negative TTF-1 (8G7G3/1) [...] will commence with cycle 1: TBD by [facility]. 1. ENT evaluation with [facility]- On Saturday01/02/19. No biopsies were obtained. Per patient didn't find anything. 2. PET CT for initial staging- Scheduled for later today. 3. Radiation oncology consultation 4. Central venous access and feeding tube placement- Port to be placed on 4/23/19 and PEG tube 01/15/19. 5. Appointment with PCP to help with cessation of alcohol consumption and avoiding DTs and smoking cessation- Being managed by pcp. Has nicotine replacement patches and 180 program. RTO 01/08/19 to review PET with Dr. Simpson as previously planned. Marce Maxwell, MAIL PROCESSING MACHINE OPERATOR-CONCRETE PUMP OPERATOR HELPER, AOCNP Primary Care Provider: Kamryn Gonzalez NP Referring Provider: - Problem List (1) Carcinoma of unknown primary Status: Acute (2) Regional lymph node metastasis present Status: Acute (3) Encounter for education Status: Acute 01/05/19 1315 <Electronically signed by Marce Maxwell BMET-C> Date Marce Maxwell BMET-C Cosigner Signature: Date (if applicable) CC: Kamryn Gonzalez Start: 01-05-2019 PET/CT Tumor Base -Thigh Init BMET-C Kamryn Gonzalez BMET Work Phone: Start: 01-04-2019 End: 01-04-2019 Surgery Visit Report Comments: See Note; NOTES: [facility] [address] [place] [address]. 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 Is patient in pain?: No [...] person, oriented to place, oriented to time [facility] Head: normocephalic, atraumatic Ears: external [...] MD Cosigner Signature: Date (if applicable) CC: Kamryn Gonzalez Start: 01-02-2019 End: 01-07-2019 PET/CT Tumor Base -Thigh Init Comments: See Note; NOTE S: [facility] Imaging Services [address] [place] [address] PET/CT Tumor Base -Thigh Init MR#: [id number] Acct: [id number] Name: MY JAMA Rep #: [id number] : 1960 58 From: Narendra Weathers DO PCP: Kamryn Gonzalez NP Status: [facility] R[facility] Study: PET/CT Tumor Base -Thigh Init Date of Exam: 01/05/19 Exam# [id number] Ordering Dr: Quincy Simpson MD EXAMINATION: FDG [...] , CC: AJAY Gonzalez; Quincy Simpson MD Marketing Proposal Specialist: Signed Kamryn Gonzalez Start: 12-31-2018 End: 12-31-2018 Oncology History and Physical Comments: See Note; NOTE S: [facility] Medical Records Department [address] [place] [address] History and Physical 12/31/1814 MR#: [id number] Acct: [id number] Name: MY JAMA Rep #: [id number] : 1960 58 From: Quincy Simpson MD PCP: Kamryn Gonzalez NP Status: REG RCR Y Location: [...] FINDINGS: Supraclavicular: No acute process within the hhwmh-cs-lxus. Body wall soft tissues: No acute process. [...] AE1-3 (AE1/AE3/PCK26) positive CK7 (OV-TL12/30) negative CK8 (24yoqxY47) positive, weak CK20 (KS20.8) negative TTF-1 (8G7G3/1) negative Napsin A (Rabbit Polyclonal) negative HepPar (OCh1E5) negative RCC (PN-15) negative PSAP (PASE/4LJ) negative CK5-6 (D5 AND 1684) positive P16 (E6H4) negative P40 (BC28) positive, focal Power of Taxi Driver: No Living Will: Yes Health History: Past [...] drinking: Has the patient needed an eye wireworker in the mornings: Comments: Review of Systems [...] placement. 5. Formal chemo teaching appointment with BMET to schedule. 6. Appointment with PCP to help with cessation of alcohol consumption and avoiding DTs and smoking cessation. Patient was seen with his 3 daughters (all smokers) impression and plan discussed. Follow-up after the PET/CT and ENT evaluation. Primary Care Provider: Kamryn Gonzalez NP Referring Provider: 12/31/18 1001 <Electronically signed by Quincy Simpson MD> Date Quincy Simpson MD Cosigner Signature: Date (if applicable) CC: Kamryn Gonzalez NP; Kamryn gonzalez; Jim Burgos MD; Shane Gibson MD; Quincy Simpson MD; Santiago Sellers DO Signed Kamryn Gonzalez Start: 12-25-2018 End: 12-25-2018 Surgery Visit Report Comments: See Note; NOTES: [facility] 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 Is patient in pain?: No [...] person, oriented to place, oriented to time [facility] Head: normocephalic, atraumatic Ears: external [...] MD Cosigner Signature: Date (if applicable) CC: Kamryn Gonzalez Start: 12-17-2018 End: 12-18-2018 Chest WITH Contrast Comments: See Note; NOTES: [facility] Imaging Services [address] [place] [address] Chest WITH Contrast MR#: [id number] Acct: [id number] Name: MY JAMA Rep #: [id number] : 1960 58 From: Narendra Romero MD PCP: Kamryn Gonzalez NP Status: REG CLI Study: Chest WITH Contrast Date of Exam: 12/17/18 Exam# [id number] Ordering Dr: Kamryn Gonzalez BMET-C STUDY: CT CHEST WITH CONTRAST REASON FOR [...] FINDINGS: Supraclavicular: No acute process within the sgzsh-mj-ygpj. Body wall soft tissues: No acute process. [...] EDT Tel , Service support , CC: Kamryn Gonzalez NP Marketing Proposal Specialist: Signed Kamryn Gonzalez Work Phone: Start: 12-17-2018 End: 12-18-2018 Soft Tissue Neck WITH Contrast Comments: See Note; NOTES: [facility] Imaging Services [address] [place] [address] Soft Tissue Neck WITH Contrast MR#: [id number] Acct: [id number] Name: MY JAMA Rep #: [id number] : 1960 58 From: Narendra Romero MD PCP: Kamryn Gonzalez NP Status: REG CLI Study: Soft Tissue Neck WITH Contrast Date of Exam: 12/17/18 Exam# [id number] Ordering Dr: Kamryn Gonzalez BMET-C STUDY: CT SOFT TISSUE NECK WITH CONTRAST [...] EDT Tel , Service support , CC: Kamryn Gonzalez NP Marketing Proposal Specialist: Signed Archana Monica Work Phone: Start: 12-15-2018 End: 12-15-2018 No Known Past Surgical History Xavier Myers Anaerobic microbial culture BMET-C Kamryn Gonzalez BMET Work Phone: Anaerobic microbial culture BMET-C Kamryn Monica BMET Work Phone: Anaerobic microbial culture BMET-C Kamryn Gonzalez BMET Work Phone: Anaerobic microbial culture BMET-C Kamryn Ciesa BMET Work Phone: [phone] Anaerobic microbial culture BMET-C Kamryn Ciesa BMET Work Phone: [phone] Anaerobic microbial culture BMET-C Kamryn Ciesa BMET Work Phone: [phone] Bacteria identified in Blood by Culture BMET-C Kamryn Ciesa BMET Work Phone: [phone] Bacteria identified in Blood by Culture BMET-C Kamryn Ciesa BMET Work Phone: [phone] H/O: tracheostomy Status post tracheostom y Archana Cimegana Work Phone: [phone] Investigation of tra nsfusion reaction BMET-C Kamryn Ciesa BMET Work Phone: [phone] Investigation of tra nsfusion reaction BMET-C Kamryn Ciesa BMET Work Phone: [phone] Investigation of tra nsfusion reaction BMET-C Kamryn Ciesa BMET Work Phone: [phone] Investigation of tra nsfusion reaction BMET-C Kamryn Ciesa BMET Work Phone: [phone] Investigation of tra nsfusion reaction BMET-C Kamryn Ciesa BMET Work Phone: [phone] Investigation of tra nsfusion reaction BMET-C Kamryn Ciesa BMET Work Phone: [phone] Microbial culture, routine N P-C Kamryn Ciesa BMET Work Phone: [phone] Microbial culture, routine N P-C Kamryn Ciesa BMET Work Phone: [phone] Microbial culture, routine N P-C Kamryn Ciesa BMET Work Phone: [phone] Microbial culture, routine N P-C Kamryn Ciesa BMET Work Phone: [phone] Microbial culture, routine N P-C Kamryn Ciesa BMET Work Phone: [phone] Microbial culture, routine N P-C Kamryn Ciesa BMET Work Phone: [phone] NEGATED: Highlighted row has not occurred! 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 Expected: 06/10/2025 (Approximate), Expires: 06/10/2026 [facility] Work Phone: Comment on above: Expected: 06/10/2025 (Approximate), Expires: 06/10/2026 Start: 06-10-2025 End: 06-10-2026 CT Chest W contrast IV CT chest w IV contrast Imaging Routine 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 Expected: 06/10/2025, Expires: 06/10/2026 [facility] Work Phone: Comment on above: Expected: 06/10/2025 , Expires: 06/10/2026 Start: 06-10-2025 End: 06-10-2026 CT Neck W contrast IV CT soft tissue neck w IV contrast Imaging Routine 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 Expected: 06/10/2025, Expires: 06/10/2026 [facility] Work Phone: Comment on above: Expected: 06/10/2025 , Expires: 06/10/2026 Start: 06-10-2025 End: 06-10-2026 TSH with reflex to Free T4 if abnormal TSH with reflex to Free T4 if abnormal Lab Routine Acquired hypothyroidism Expected: 06/10/2025 (Approximate), Expires: 06/10/2026 [facility] Work Phone: Comment on above: Expected: 06/10/2025 (Approximate), Expires: 06/10/2026 Start: 06-10-2025 End: 06-10-2027 US.doppler Carotid arteries - bilateral Vascular US Carotid Artery Duplex Bilateral Vascular Ultrasound Routine Adverse effect of radiation, sequela Other disorders of arteries, arterioles and capillaries in diseases classified elsewhere Expected: 06/10/2025 (Approximate), Expires: 06/10/2027 [facility] [[email or web address]] Service Area Work Phone: Comment on above: Expected: 06/10/2025 (Approximate), Expires: 06/10/2027 Start: 05-24-2025 COVID-19 Vaccine ( season) COVID-19 Vaccine ( season) [facility] Start: 05-24-2025 COVID-19 Vaccine ( season) COVID-19 Vaccine ( season) [facility] Start: 05-24-2025 Influenza vaccination [facility] Start: 04-23-2025 Influenza vaccination Influenza Vacc ine (#1) [facility] Start: 04-15-2025 Patient discharge [facility] Start: 03-01-2025 End: 03-01-2025 Patient encounter procedure 03/01/2025 8:30 AM EDT Office Visit [address] [address] [place] [address] Department [place] [address] [facility] Start: 10-21-2024 Egd insert guide wir e dilator passage esophagus EGD GUIDE WIRE INSERTION [facility] Start: 10-21-2024 Patient discharge [facility] Start: 09-15-2024 CORE NDL BX LNG/MED PERQ CORE NDL BX LNG/MED PERQ [facility] Start: 09-15-2024 Following clinical pathway protocol [facility] Start: 09-15-2024 Catheterization of vein [facility] Start: 09-15-2024 Oxygen therapy [facility] Start: 09-15-2024 Patient discharge [facility] Start: 09-15-2024 Vital signs measurements [facility] Start: 05-24-2024 COVID-19 Vaccine ( season) COVID-19 Vaccine ( season) [facility] Start: 05-24-2024 Influenza vaccination [facility] Start: 02-03-2024 End: 02-03-2024 Clinical Support 02/03/2024 11:30 AM EDT Clinical Support [address] [address] Jaelyn Patrick, AuD [address] [place] [address] Sensorineural hearing loss (SNHL) of both ears (Primary Dx) [facility] Comment on above: Sensorineural hearin g loss (SNHL) of both ears (Primary Dx) Start: 02-03-2024 End: 02-03-2024 Patient encounter procedure 02/03/2024 8:45 AM EDT Office Visit [address] [address] [place] [address] [address] [facility] Department [place] [address] [facility] Start: 11-07-2023 DECLAN, Provider: Segundo Chamorro, Status: Pen, Time: 9:30 AM DECLAN, Provider: Segundo Chamorro, Status: Pen, Time: 9:30 AM FM-Deejycncvfavvl-Yyy on Work Phone: Start: 11-07-2023 End: 11-07-2023 Clinical Support 11/07/2023 9:30 AM EST Clinical Support [address] [address] Jaelyn Patrick, AuD [address] [place] [address] [facility] Start: 09-03-2023 Egd insert guide wir e dilator passage esophagus EGD GUIDE WIRE INSERTION [facility] Start: 09-03-2023 Egd transoral biopsy single/multiple EGD BIOPSY SINGLE/MULTIPLE [facility] Start: 09-03-2023 [facility] Start: 09-02-2023 End: 09-02-2024 Thyrotropin [Units/volume] in Serum or Plasma Thyroid Stimulating Hormone Lab Routine Acquired hypothyroidism Expected: 09/02/2023 (Approximate), Expires: 09/02/2024 [facility] [[email or web address]] Service Area Work Phone: Comment on above: Expected: 09/02/2023 (Approximate), Expires: 09/02/2024 Start: 09-02-2023 End: 09-02-2024 XR Chest 2 Views XR chest 2 views Imaging Routine 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) Expected: 09/02/2023 (Approximate), Expires: 09/02/2024 [facility] Work Phone: Comment on above: Expected: 09/02/2023 (Approximate), Expires: 09/02/2024 Start: 08-06-2023 Thyroid stimulating hormone measurement TSH Level [facility] Start: 08-05-2023 Patient referral [facility] Work Phone: Start: 07-22-2023 Procedure Education [facility]; [facility] Work Phone: Start: 07-22-2023 Assay of free thyroxine [facility] Work Phone: Start: 07-22-2023 Assay of thyroid stimulating hormone tsh [facility]; [facility] Work Phone: Start: 05-24-2023 COVID-19 Vaccine ( season) COVID-19 Vaccine ( season) [facility] Start: 05-24-2023 Influenza vaccination Influenza Vacc ine (#1) [facility] Start: 04-18-2023 DECLAN Provider: Segundo Chamorro, Status: Pen, Time: 3:45 PM DECLAN Provider: Segundo Chamorro, Status: Pen, Time: 3:45 PM FB-Iupjcpwmjjyyrr-Ctd on Work Phone: Start: 04-04-2023 BASILOI, Provider: Segundo Chamorro, Status: Pen, Time: 11:00 AM BASILIO, Provider: Segundo Chamorro, Status: Pen, Time: 11:00 AM EU-Lawsgzyrdzcipm-Esr on Work Phone: Start: 03-14-2023 HASAQIB, Provider: Segundo Chamorro, Status: Pen, Time: 1:00 PM HAEVAL, Provider: Segundo Chamorro, Status: Pen, Time: 1:00 PM NR-Rczwrwrkohmdvc-Wag on Work Phone: Start: 03-06-2023 DUALAUDIO, Provider: Gertrude Howard, Status: Pen, Time: 9:00 AM DUALAUDIO, Provider: Gertrude Howard, Status: Pen, Time: 9:00 AM CP-Qkcvsduvlbsten-[place] Work Phone: Start: 03-06-2023 EPV, Provider: True Kumar, Status: Pen, Time: 9:00 AM EPV, Provider: True Kumar, Status: Pen, Time: 9:00 AM DH-Gdpnaiqpwivpgj-Elj on [address] Work Phone: Start: 03-06-2023 DUALMASOOD, Provider: Segundo Chamorro, Status: Pen, Time: 8:30 AM DUALAUDIO, Provider: Segundo Chamorro, Status: Pen, Time: 8:30 AM VH-Gdzpqsxnzmlhbc-Sfh on [address] Work Phone: Start: 01-21-2023 Assay [...] (1 - Risk 60-74 years 1-dose series) [facility] Start: 2022 RSV patient s and/or patients aged 60+ years (1 - 1-dose 60+ series) RSV patients and/or patients aged 60+ years (1 - 1-dose 60+ series) [facility] Start: 06-18-2022 FUV, Provider: Rachel Brooks, Status: Pen, Time: 8:45 AM FUV, Provider: Rachel Brooks, Status: Pen, Time: 8:45 AM IS-Wkvkedmdpjjsko-Zql on Work Phone: Start: 05-14-2022 FUV, Provider: Rachel Brooks, Status: Pen, Time: 8:30 AM FUV, Provider: Rachel Brooks, Status: Pen, Time: 8:30 AM FG-Kjucyoxbfefqrb-Jqf on Work Phone: Start: 04-16-2022 FUV, Provider: Rachel Brooks, Status: Pen, Time: 9:45 AM FUV, Provider: Rachel Brooks, Status: Pen, Time: 9:45 AM GJ-Szmqhoumuvljjf-Gog dman Work Phone: Start: 04-02-2022 FUV, Provider: Rachel Brooks, Status: Pen, Time: 8:45 AM FUV, Provider: Rachel Brooks, Status: Pen, Time: 8:45 AM XF-Dpfwtrdnamtweg-Kpo on Work Phone: Start: 02-22-2022 Basic metabolic pane l calcium total Metabolic Panel, Basic (74192) [facility]; [facility] Work Phone: Start: 02-16-2022 Basic metabolic pane l calcium total [facility]; [facility] Work Phone: Start: 02-15-2022 Basic metabolic pane l calcium total Metabolic Panel, Basic (71751) [facility]; [facility] Work Phone: Start: 02-15-2022 Procedure Education [facility]; [facility] Work Phone: Start: 02-12-2022 FUV, Provider: Rachel Brooks, Status: Pen, Time: 11:15 AM FUV, Provider: Rachel Brooks, Status: Pen, Time: 11:15 AM SD-Rvnforctljphww-Jel on Work Phone: Start: 01-31-2022 Patient referral [facility] Work Phone: Start: 01-25-2022 Patient discharge [facility] Work Phone: Start: 01-25-2022 Chemotherapy care management [facility] Work Phone: Start: 01-24-2022 [facility] Work Phone: Start: 01-24-2022 Care planning and problem solving actions [facility] Work Phone: Start: 01-24-2022 Speech therapy assessment [facility] Work Phone: Start: 01-24-2022 [facility] Work Phone: Start: 01-23-2022 Referral to line runner [facility] Work Phone: Start: 01-22-2022 End: 01-23-2022 [facility] Work Phone: Start: 01-22-2022 Following clinical pathway protocol [facility] Work Phone: Start: 01-22-2022 Ambulation without limitation [facility] Work Phone: Start: 01-22-2022 Application of intermittent pneumatic compression device [facility] Work Phone: Start: 01-22-2022 Assessment of risk o f venous thromboembolism [facility] Work Phone: Start: 01-22-2022 Consultation for treatment [facility] Work Phone: Start: 01-22-2022 Fluid restriction [facility] Work Phone: Start: 01-22-2022 Inhalation therapy procedure [facility] Work Phone: Start: 01-22-2022 Insertion of cathete r into peripheral vein [facility] Work Phone: Start: 01-22-2022 Measuring intake and output [facility] Work Phone: Start: 01-22-2022 Providing care according to standard [facility] Work Phone: Start: 01-22-2022 Wound care [facility] Work Phone: Start: 01-22-2022 Admission procedure [facility] Work Phone: Start: 01-22-2022 Patient referral to dietitian [facility] Work Phone: Start: 01-15-2022 FUV, Provider: Rachel Brooks, Status: Pen, Time: 9:45 AM FUV, Provider: Rachel Brooks, Status: Pen, Time: 9:45 AM DA-Anqtaabwtfiwhm-Lzn on Work Phone: Start: 01-15-2022 Patient encounter procedure [facility] [place] Start: 12-18-2021 FUV, Provider: Rachel Brooks, Status: Pen, Time: 3:45 PM FUV, Provider: Rachel Brooks, Status: Pen, Time: 3:45 PM LG-Lgjioitaseisfy-Kvv dman Work Phone: Start: 12-15-2021 Procedure Education [facility]; [facility] Work Phone: Start: 12-15-2021 FUV, Provider: Willie Smith, Status: Pen, Time: 10:30 AM FUV, Provider: Willie Smith, Status: Pen, Time: 10:30 AM UC-Lqntazhxtckukx-Den in [place] [address] Work Phone: Start: 12-10-2021 Airway suction technique [facility] Work Phone: Start: 12-08-2021 Patient referral [facility] Work Phone: Start: 12-05-2021 End: 12-06-2022 Lidocaine 1% - EPINEPHrine 1:100,000 Injectable SubCutaneous Once ; DOSE = 2 mL SubCutaneous Once Start: 05-Dec-2021 End: 05-Dec-2022 Ordered: 05-Dec-2021 Avinash Otero Intent [facility] Start: 12-04-2021 FUV, Provider: Rachel Brooks, Status: Pen, Time: 3:45 PM FUV, Provider: Rachel Brooks, Status: Pen, Time: 3:45 PM HL-Ivbopxgaanukrx-Hap dman Work Phone: Start: 11-29-2021 Patient encounter procedure [facility] Start: 11-29-2021 POV, Provider: Rachel Brooks, Status: Pen, Time: 1:15 PM POV, Provider: Rachel Brooks, Status: Pen, Time: 1:15 PM LU-Lkzivlknjtvpfr-[place]fa [place] Work Phone: Start: 11-13-2021 End: 11-14-2022 Magnesium Hydroxide Oral Liquid CONCENTRATE 10 mL Oral Every 24 Hours PRN ; (MILK OF MAGNESIA)DOSE = 10 mL PEG Tube Every 24 Hours Start: 13-Nov-2021 End: 13-Nov-2022 Ordered: 13-Nov-2021 La Baez Intent [facility] Start: 11-11-2021 End: 11-12-2022 Albuterol 2.5 mg - Ipratropium 0.5 mg/ 3 mL Neb Soln 3 mL Inhalation Every 4 Hours ; (DUONEB)DOSE = 3 mL Inhalation Every 4 Hours via Nebulizer, PRN Shortness of Breath Start: 11-Nov-2021 End: 11-Nov-2022 Ordered: 11-Nov-2021 Chevy Corrales [facility] Start: 11-07-2021 [facility], Provider: Rachel Brooks, Status: Pen, Time: 8:00 AM [facility], Provider: Rachel Brooks, Status: Pen, Time: 8:00 AM BB-Iajvbfhvliclqc-Apb dman Work Phone: Start: 11-07-2021 [facility], Provider: Willie Smith, Status: Pen, Time: 8:00 AM [facility], Provider: Willie Smith, Status: Pen, Time: 8:00 AM CC-Iydehftoxxvbxq-Mrj dman Work Phone: Start: 11-01-2021 FUV, Provider: Willie Smith, Status: Pen, Time: 8:00 AM FUV, Provider: Willie Smith, Status: Pen, Time: 8:00 AM KJ-Vhurliolrktkgn-Hqy in [place] [address] Work Phone: Start: 10-27-2021 FUV, Provider: Willie Smith, Status: Pen, Time: 9:15 AM FUV, Provider: Willie Smith, Status: Pen, Time: 9:15 AM PU-Rvikhsjbegckdh-Vgd dman Work Phone: Start: 09-13-2021 Assay of [...] B 12) [Mass/Vol] VITAMIN B12 AND FOLATES (97327) [facility]; [facility] Work Phone: Start: 01-17-2021 Cyanocobalamin vitam in b-12 [facility]; [facility] Work Phone: Start: 01-17-2021 Assay of thyroid stimulating hormone tsh [facility]; [facility] Work Phone: Start: 01-17-2021 TSH Qn TSH (THYROID STIMULATING HORMONE) (07614) [facility]; [facility] Work Phone: Start: 12-02-2020 Procedure Education [facility]; [facility] Work Phone: Start: 12-02-2020 Provider Instruction s for Treatment [facility]; [facility] Work Phone: Start: 08-29-2020 TSH Qn TSH (THYROID STIMULATING HORMONE) (52950) [facility]; [facility] Work Phone: Comment on above: Oct 06 2020 Start: 08-29-2020 Procedure Education [facility]; [facility] Work Phone: Start: 08-29-2020 Provider Instruction s for Treatment [facility]; [facility] Work Phone: Start: 06-29-2020 TSH Qn TSH (THYROID STIMULATING HORMONE) (68883) [facility] Work Phone: Comment on above: Aug 10 Start: 06-29-2020 Procedure Education [facility] Work Phone: Start: 06-29-2020 Provider Instruction s for Treatment [facility] Work Phone: Start: 05-19-2020 TSH Qn TSH (THYROID STIMULATING HORMONE) ([id number]) [facility] Work Phone: Start: 04-14-2020 Free T4 [Mass/Vol] T4, FREE (T HYROXINE) (57731) [facility] Work Phone: Comment on above: to be done 6weeks ( end april ) Start: 04-14-2020 TSH Qn TSH (41750) [facility] Work Phone: Comment on above: to be done 6 weeks ( end april) Start: 04-14-2020 Free T3 [Mass/Vol] T3, FREE (TRIDOTHYRONINE) (93517) [facility] Work Phone: Comment on above: to be done 6weeks ( end april) Start: 04-14-2020 Microsomal antibodie s each Anti TPO Antibody (31880) [facility] Work Phone: Start: 04-14-2020 Procedure Education [facility] Work Phone: Start: 12-14-2019 Procedure Education [facility] Work Phone: Start: 06-18-2019 Flushing of Port-a-cath [facility] Start: 06-18-2019 Irrigation of vascul ar catheter [facility] Start: 05-27-2019 [facility] Start: 03-31-2019 [facility] Start: 03-18-2019 [facility] Start: 02-05-2019 [facility] Start: 02-04-2019 [facility] Start: 01-21-2019 [facility] Start: 01-09-2019 [facility] Start: 01-05-2019 [facility] Start: 01-02-2019 Procedure Education [facility] Work Phone: Start: 01-02-2019 Provider Instruction s for Treatment [facility] Work Phone: Start: 01-02-2019 Comprehensive metabo lic panel Metabolic Panel, Comprehensive (80714) [facility] Work Phone: Start: 01-02-2019 Cobalamin (Vitamin B 12) mass conc VITAMIN B12 AND FOLATES (39017) [facility] Work Phone: Start: 01-02-2019 Ammonia mass conc (P) AMMONIA (18131 ) [facility] Work Phone: Start: 12-15-2018 Blood count complete auto&auto difrntl wbc [facility] Work Phone: Start: 12-15-2018 Comprehensive metabo lic panel [facility] Work Phone: Start: 12-15-2018 Procedure Education [facility] Work Phone: Start: 12-15-2018 Provider Instruction s for Treatment [facility] Work Phone: Start: 2012 Prostate specific antigen measurement PSA Prostate Cancer Screening [facility] Start: 2012 Zoster Vaccines (1 o f 2) Zoster Vaccines (1 of 2) [facility] Start: 1984 DTaP/Tdap/Td Vaccine s (1 - Tdap) DTaP/Tdap/Td Vaccines (1 - Tdap) [facility] Start: 1981 Pneumococcal vaccination Pneumococcal Vaccine (1 of 2 - PCV) [facility] Start: 1980 Hepatitis C screening Hepatitis C Sc [facility] Start: 1968 Pneumococcal Vaccine : Pediatrics (0 to 5 Years) and At-Risk Patients (6 to 64 Years) (1 - PCV) Pneumococcal Vaccine: Pediatrics (0 to 5 Years) and At-Risk Patients (6 to 64 Years) (1 - PCV) [facility] Start: 1968 Pneumococcal Vaccine : Pediatrics (0 to 5 Years) and At-Risk Patients (6 to 64 Years) (1 of 2 - PCV) Pneumococcal Vaccine: Pediatrics (0 to 5 Years) and At-Risk Patients (6 to 64 Years) (1 of 2 - PCV) [facility] Start: 1963 MMR Vaccines (1 of 1 - Standard series) MMR Vaccines (1 of 1 - Standard series) [facility] Start: 1962 COVID-19 Vaccine (#1) COVID-19 Vacci ne (#1) [facility] Start: 1962 Annual wellness visit Welcome to Medicare Visit [facility] Start: 1962 HIV screening HIV Screening [facility] Start: 1962 Lipid panel Lipid Panel [facility] Start: 1962 Screening for malign ant neoplasm of colon [facility] Start: 1962 Yearly Adult Physical Yearly Adult P hycal [facility] CBC W Auto Different ial panel - Blood [facility] Work Phone: CT Chest W contrast IV [facility] Work Phone: CT Chest W contrast IV [facility] CT Chest W contrast IV [facility] CT Chest W contrast IV [facility] End: 07-08-2025 CT Chest W contrast IV [facility] [[email or web address]] Service Area Work Phone: Comment on above: Once for 1 Occurrenc es starting 07/08/2025 until 07/08/2025 CT Neck W contrast IV [facility] Work Phone: CT Neck W contrast IV [facility] End: 07-08-2025 CT Neck W contrast IV [facility] Service Area Work Phone: Comment on above: Once for 1 Occurrenc es starting 07/08/2025 until 07/08/2025 Magnesium [Mass/volu me] in Serum or Plasma [facility] Work Phone: Patient Education [facility] Work Phone: Patient referral [facility] Work Phone: Patient referral to dietitian [facility] Work Phone: Patient referral to [facility] US.doppler Carotid arteries - bilateral Vascular US Carotid Artery Duplex Bilateral Vascular Ultrasound Routine Adverse effect of radiation, sequela Other disorders of arteries, arterioles and capillaries in diseases classified elsewhere 06/30/2025 11:20 AM EDT [facility] Work Phone: [facility] Work Phone: [facility] Work Phone: [facility] Work Phone: [facility] Work Phone: [facility] Work Phone: [facility] Work Phone: [facility] NEGATED: Highlighted row has been ruled out! Planned Goals not documented TY-Tceppyrdhpicoq-Qal in [place] [address] Work Phone: Payers Date Payer Category Payer Medicare (Managed Care) [employer] [id number] 2024 Self-pay [id number] 2024 Medicare [id number] 2020 Managed Care (Private) [facility] [id number] 2020 Private Health Insurance [facility] [id number] 2020-Present [address] [address] [place] [address] [id number]. [id number] 2019 Unknown 2019 Unknown [id number] 2018 Private Health Insurance [id number] 1962 Unknown [id number] 2.16.840.1.895874.3.579. 2.716 1962 Unknown [id number] 2.16.840.1.888397.3.579. 2.356 1962 Unknown [id number] 2.16.840.1.675601.3.579. 2.356 1962 Unknown [id number] 2.16.840.1.724588.3.579. 2.356 1962 Unknown [id number] 2.16.840.1.663132.3.579. 2.356 1962 Unknown [id number] 2.16.840.1.536920.3.579. 2.356 1962 Unknown [id number] 2.16.840.1.793908.3.579. 2.356 1962 Unknown [id number] 2.16.840.1.576299.3.579. 2.356 1962 Unknown [id number] 2..840.1.381217.3.579. 2.356 1962 Unknown [id number] 2..840.1.336762.3.579. 2.1245 1962 Unknown [id number] 2.840.1.193744.3.579. 2.1244 1962 Unknown [id number] 2.840.1.620829.3.579. 2.1244 1962 Unknown [id number] 2.840.1.926814.3.579. 2.1244 Private Health Insurance [id number] Unknown [id number] Unknown [id number] 2.840.1.710431.3.579. 2.462 Unknown [id number] 2.840.1.809092.3.579. 2.462 Unknown [id number] 2.840.1.031354.3.579. 2.462 Unknown [id number] 2.16.840.1.693664.3.579. 2.462 Unknown [id number] 2.16840.1.039488.3.579. 2.462 Unknown [id number] 2.16.840.1.743455.3.579. 2.462 Unknown [id number] 2.16.840.1.435175.3.579. 2.462 Unknown [id number] 2.16.840.1.907041.3.579. 2.462 Unknown [id number] 2.16.840.1.487114.3.579. 2.462 Unknown [id number] 2.16.840.1.990595.3.579. 2.462 Unknown [id number] 2.16.840.1.427536.3.579. 2.462 Unknown [id number] 2.16.840.1.530176.3.579. 2.462 Unknown [id number] 2.16.840.1.008532.3.579. 2.462 Unknown [id number] 2.840.1.804099.3.579. 2.462 Unknown [id number] 2.840.1.775793.3.579. 2.462 Unknown [id number] 2.840.1.259254.3.579. 2.462 Unknown [id number] 2.840.1.991676.3.579. 2.462 Unknown [id number] 2.840.1.514910.3.579. 2.462 Unknown [id number] 2.16840.1.699063.3.579. 2.462 Unknown [id number] 2.16840.1.949758.3.579. 2.462 Unknown [id number] 2.16840.1.411960.3.579. 2.462 Unknown [id number] 2.16840.1.787943.3.579. 2.462 Unknown [id number] 2.16840.1.707832.3.579. 2.462 Unknown [id number] 2.16.840.1.569034.3.579. 2.462 Unknown [id number] 2.16.840.1.861369.3.579. 2.462 Unknown [id number] 2.16840.1.224707.3.579. 2.462 Social History Date Type Detail Facility [...] Work Phone: Tobacco Use: Tobacco Use: [facility]; [facility] Work Phone: Comment on above: 1 pack a day Start: 12-10-2021 End: 05-14-2025 Tobacco smoking consumption unknown [facility] Start: 11-28-2020 Cigarettes [facility] Start: 1960 Sex Assigned At Male [facility] Former smoker. [facility]; [facility] Work Phone: Start: 09-02-2023 End: 03-01-2025 Tobacco smoking status ALIS Never smoked tobacco [facility] Work Phone: Start: 09-02-2023 End: 03-01-2025 Tobacco use and exposure Smokeless tobacco non-user [facility] Work Phone: Start: 09-02-2023 End: 06-10-2025 Alcohol intake Lifetime non-drinker (finding) [facility] Work Phone: Start: 09-02-2023 End: 02-03-2024 Tobacco use panel [facility] Work Phone: Start: 1960 Sex Assigned At Not on file [facility] Work Phone: Start: 08-23-2023 End: 03-01-2025 Exposure to SARS-CoV-2 (event) Not sure [facility] Start: 10-20-2024 End: 04-12-2025 Tobacco smoking status NHIS Ex-smoker (finding) [facility] Start: 08-18-2022 End: 12-22-2024 Sex Male (finding) [facility] Start: 08-18-2022 Sex Male [facility] NEGATED: Highlighted row - WS-Xwolyxvjuvvfqh-Gz min [place] [address] Work Phone: NEGATED: Highlighted rowStart: NINF History of tobacco use Passive smoker [facility] Work Phone: Medical Equipment Procedure Code [...] Pin, 2.7 X 80mm, 9mm Thread Case [id number] Start: 11-07-2021 Comment on above: Description: Convert ed from [facility]. Please see archived information for full log information. Peg Kit, Gastro, Standard, Push, 20 Fr, W/Xylocaine Ampule Case [id number] Start: 11-07-2021 Comment on above: Description: Convert ed from [facility]. Please see archived information for full log information. Clamp, Cmf X-Fix , Connection Bar Cmf 3.2mm Pin Case [id number] Start: 11-07-2021 Comment on above: Description: Convert ed from [facility]. Please see archived information for full log information. Device, Anasotmo tic 3.0mm Case [id number] Start: 11-07-2021 Comment on above: Description: Convert ed from [facility]. Please see archived information for full log information. Probe, Flow Dopp ler Brenton Case [id number] Start: 11-07-2021 Comment on above: Description: Convert ed from [facility]. Please see archived information for full log information. Probe, Flow Dopp ler Cook-Soham Case [id number] Start: 11-10-2021 Comment on above: Description: Convert ed from [facility]. Please see archived information for full log information. Screw, Lock 2.0 X 11 Maxdrv Ti Alloy Case [id number] Start: 11-07-2021 Comment on above: Description: Convert ed from [facility]. Please see archived information for full log information. Drill, Klsm 2.2 Case [id number] Start: 11-07-2021 Comment on above: Description: Convert ed from [facility]. Please see archived information for full log information. Plate Level One Cmf Case [id number] Start: 11-07-2021 Comment on above: Description: Convert ed from [facility]. Please see archived information for full log information. Additional Information:Plateper oracle jdr 11/08/2021 External Fixator Klever Case [id number] Start: 11-07-2021 Comment on above: Description: Convert ed from [facility]. Please see archived information for full log information. Additional Information:External Fixator Rodper range oracle jdr 11/08/2021 Screw, Lock 2.0 X 17 Maxdrv Ti Alloy Case [id number] Start: 11-07-2021 Comment on above: Description: Convert ed from [facility]. Please see archived information for full log information. Screw, Lock 2.0 X 13 Maxdrv Ti Alloy Case [id number] Start: 11-07-2021 Comment on above: Description: Convert ed from [facility]. Please see archived information for full log information. Screw, Lock 2.0 X 15 Maxdrv Ti Alloy Case [id number] Start: 11-07-2021 Comment on above: Description: Convert ed from [facility]. Please see archived information for full log information. Device, Anasotmo tic 2.5mm Case [id number] Start: 11-07-2021 Comment on above: Description: Convert ed from [facility]. Please see archived information for full log information. Probe, Flow Dopp remigio Farris Case [id number] Start: 11-07-2021 Comment on above: Description: Convert ed from [facility]. Please see archived information for full log information. Goals Date Patient Goal Desired Activity /State Functional Status Date Assessment Result Facility 07-08-2025 Functional status [facility] 07-08-2025 [facility] Work Phone: 06-30-2025 Functional status [facility] 06-30-2025 [facility] Work Phone: 09-15-2024 Functional status Ambulates [facility] Work Phone: 01-25-2022 Functional status Ambulates;Up ad yaneth [facility] Work Phone: 01-23-2022 Functional status Ambulates;Up ad yaneth [facility] Work Phone: Bladder: fully continent [facility] NEGATED: Highlighted row Functional performance Functional status health issues are not documented Disease XV-Qwbyijhhtjvlxj-Tn min [place] [address] Work Phone: Mental Status Date Assessment Result Facility 05-07-2025 Cognitive Function house [facility]. Work Phone: 04-15-2025 Cognitive function Voice/Name [facility] Work Phone: 10-21-2024 Cognitive function Level Of Cons ciousness Sedated [facility] Work Phone: 10-21-2024 Cognitive function Voice/Name [facility] Work Phone: 09-15-2024 Cognitive function Awake;Alert;A ppropriate ;Follows Commands [facility] Work Phone: 09-03-2023 Cognitive function Level Of Cons ciousness Follows Commands;Drowsy [facility] Work Phone: 09-03-2023 Cognitive function Voice/Name [facility] Work Phone: 01-25-2022 Cognitive function Voice/Name [facility] Work Phone: 01-23-2022 Cognitive function Voice/Name [facility] Work Phone: 11-09-2021 Cognitive functi ons [id number] [facility] 04-30-2019 Cognitive function Mood Descript ion Appropriate [facility] Work Phone: NEGATED: Highlighted row Cognitive function [Interpretation] Cognitive status health issues are not documented Disease SC-Lqcypbcctzrdqy-P dmin [place] [address] Work Phone: Clinical Notes 05-24-2019 to 06-10-2025 Dayami Jha MD - 06/10/2025 10:00 AM EDTPatient Instructions Note Date & Type Note Facility 06-10-2025 History of Presen t illness Narrative [facility] Department of Otolaryngology-Head and Neck Surgery Head and Neck Surgical Oncology Consultation Patient Name: My Jama : 1960 Referring Physician: No ref. provider found Reason For Consult: Establish head and neck oncologic care and surveillance Oncologic History: Hx [id number] SCCa left neck of unknown primary 12/22/18: FNA of left neck mass, +SCCa, p16- 01/05/19: PET CT w two hypermetabolic foci in left neck and increased avidity in left pharynx 01/30/19: triple endoscopy, left tonsillectomy, uvulectomy. Path without malignancy or high-grade dysplasia 03/23/19: completed definitive FINANCIAL COORDINATOR Hx [id number] oral cavity SCCa 11/07/21: s/p triple, trach, PEG, composite resection, excision of skin and soft tissue, segmental mandibulectomy, right neck dissection, left neck exploration for vessels, reconstruction with left ALT and left fibular free flap 02/06/22: completed adjuvant FINANCIAL COORDINATOR 04/02/22: increasing size of left neck wound; cultures obtained with +MRSA 04/2022: underwent serial debridements of left neck wound 05/2022: Integra placed over neck wound without take 09/03/23: Esophagoscopy and dilation by Dr. Akhtar (GI) 01/2024: Esoph & dilation, botox by Dr. Akhtar 07/2024: Esoph and dilation, botox by Dr. Akhtar- only lasted 1 month 08/31/2024: Persistent neck wound stable - no spinning frame changer the last 2 yrs 09/2024: dilation by Dr. Akhtar 04/2025: repeat dilation and botox injection by Dr. Akhtar History Of Present Illness My Jama is a 64 y.o. 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 He developed a chronic left [...] and affect Procedure Note: Diagnostic Flexible Laryngoscopy (18351) Indication: patient symptoms requiring evaluation of pharyngeal/laryngeal/hypophary [...] complex head and neck oncologic history including sGiV4rT9 p16- SCCa left neck of unknown primary s/p definitive FINANCIAL COORDINATOR completed 03/23/2019 followed by sH1zJ0bT5 oral cavity SCCa s/p composite resection with segmental mandibulectomy, R neck dissection, and left ALT and fibula free flap reconstruction on 10/28/21 followed by adjuvant FINANCIAL COORDINATOR completed 02/06/22 who presents in follow up [...] evaluate his anatomy with CT imaging, facilitate ASSOCIATE SALES MANAGER pre-laryngectomy counseling, and the patient will take [...] - remains PO dependent - referral to ASSOCIATE SALES MANAGER for pre-laryngectomy counseling 7. Carotid stenosis screening: [...] ANGIOGRAM W AND/OR WO IV CONTRAST 10/31/2021 [facility] ANCILL[facility]GACY [4] [5] documented in this encounter [facility] Work Phone: 06-10-2025 Instructions Latosha Guerra RN - 06/10/2025 10:00 AM EDT documented in this encounter [facility] Work Phone: 04-15-2025 Evaluation note Diagnosis Onset Date Resolution Esophageal dysphagia chronic April 15, 2025 7:13am [facility] Work Phone: 1(546) 272-428407-24-2025 Consult note [facility] Medical Records Department [address] [place] [address] Anesthesia Postop Eval I 04/15/25 09 MR#: [id number] Acct: [id number] Name: MY JAMA W Rep #:[id number] : 1960 64 From: Romulo Lockett PCP: YARI Santillan Status:REG S DC Y Race: C Location: [place] [address] Anesthesia: Postop Eval I Current Vital Signs [...] Romulo Manley Signature: Date CC: ~ Signed [facility]07-24-2025 Procedure note [facility] Medical Records Department [address] [place] [address] EGD Report MR#: [id number] Acct: [id number] Name: MY JAMA W Rep #:[id number] : 1960 64 From: Elliott Akhtar DO PCP: YARI Santillan Status:REG S DC Patient Name: My Jama [...] present medications. Procedure Code(s): --- Professional --- 29653, Esophagogastroduodenoscopy, flexible, transoral; with insertion of guide wire followed by passage of dilator(s) through esophagus over guide wire 18671, 59,51, Esophagogastroduodenoscopy, flexible, transoral; with directed submucosal injection(s), any substance CPT copyright 2021 [employer]. All rights reserved. The codes documented in this report are preliminary and upon foot orthopedist review may be revised to meet current compliance requirements. Elliott Akhtar DO 04/15/2025 8:56:45 AM This report has been signed electronically. Number of Addenda: 0 Note Initiated On: 04/15/2025 8:26 AM 04/15/25856 Date _ Elliott Akhtar DO Cosigner Signature: Date (if indicated) CC: YARI Santiago; Elliott Akhtar DO ~ Date Dictated: 04/15/25825 Date Transcribed: Marketing Proposal Specialist: RF Signed [facility]07-24-2025 Procedure note [facility] Medical Records Department [address] [place] [address] Operative Report - CC Letter MR#: [id number] Acct: [id number] Name: MY JAMA Rep #:[id number] : 1960 64 From: Elliott Akhtar DO PCP: YARI Santillan Status:REG S DC 04/15/2025 Sadie Jack, Asphalt Machine Operator-c Re : Upper GI endoscopy procedure for My Jama Dear Jack This procedure was performed on March. My [...] DO Cosigner Signature: Date (if indicated) CC: YARI Santiago; Elliott Akhtar DO ~ Date Dictated: 04/15/25825 Date Transcribed: Marketing Proposal Specialist: RF Signed [facility]07-24-2025 Consult note [facility] Medical Records Department [address] [place] [address] Pre-Anesthesia Evaluation 04/15/25 08 MR#: [id number] Acct: [id number] Name: MY JAMA Rep #:[id number] : 1960 64 From: Roz dow MD PCP: YARI Santillan Status:REG S DC Y Race: C Location: [place] [address] ASA Classification* ASA Classification ASA Classification: 3 [...] Procedure(s): EGD Anesthesia History 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 - 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: 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 History - embroidery 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 Hx Hospitalization No 04/12/25 11:13 Any Problems [...] take am of surgery PONV PONV - embroidery 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: PONV - embroidery 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 Female No 04/12/25 11:13 HX of Motion [...] 04/15/25 07:40 Respiratory Assessment Respiratory Assessment - embroidery 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: Respiratory Tract Infection Hx - embroidery 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 Hx Respiratory Tract Infection No 04/12/25 11:13 STOP Sleep Apnea STOP Sleep Apnea - embroidery 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: STOP Sleep Apnea - embroidery 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 Hx Hypertension Yes: CONTROLLED WITH MED 04/12/25 [...] Tobacco Use History Tobacco Use History - embroidery 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: Tobacco Use History - embroidery 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 Tobacco Use Smoking Status Former smoker 04/12/25 11:13 Hx Tobacco Use No 04/12/25 11:13 Years Smoking Packs Smoked per Day Smoking Cessation Date was Yes - quit smoking within 15 04/12/25 11:13 within the last 15 years years Hx Smoking Cessation Date 07/24/21 04/12/25 11:13 Hx Smoking Cessation Counseling Hematologic Medial History Hematologic Hx - embroidery 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: Hematologic Medical Hx - transcription specialist Hx of Blood Transfusion No 04/12/25 11:13 [...] confused, unrespo /Reproduction History /Reproductive History - embroidery 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: /Reproductive Hx- embroidery 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 Hx Now Gestational Age (in weeks): EDC: [...] MD Cosigner Signature: Date CC: ~ Signed [facility]07-24-2025 History and physical note [facility] Medical Records Department [address] [place] [address] History & Physical Exam 04/15/25 0739 MR#: [id number] Acct: [id number] Name: MY JAMA Rep #:[id number] : 1960 64 From: Elliott Friend PCP: YARI Santillan Status:REG S DC Location: [place] [address] HPI - General General Date of Admission: 04/15/25 Date of Service: 04/15/25 Chief Complaint: Esophageal dysphagia HPI Narrative MY JAMA, is a 64 M who presents for an upper endoscopy regarding severe esophageal dysphagiasecondary to radiation. 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 Underwent radiation with concurrent carboplatin for head/neck cancer. At follow up it was noted he has dysphagia. ? Modified Barium 04.13.22 moderate oropharyngeal dysphagia, mild esophageal dysphasia. ? Modified Barium 06.15. moderate-severe oropharyngeal phase dysphagia, puree texture. ? [...] Barium Swallow 10.24 Severe oropharyngeal dysphagia OV 11.24 pt reports continued difficulty swallowing, denies other GI symptomsof concern at this time. EGD 10.21.24 Benign-appearing esophageal stenosis. Dilated. Small hiatal hernia. No gross lesions inthe duodenal bulb. No specimens collected. Modified Barium Swallow 3. severe oropharyngeal dysphagia OV 5.25 pt reports that he is feeling well overall and denies GI symptoms of concern, but would like to schedule his next EGD. [facility] Medical History Wears hearing [...] therapy with radiation and weekly carboplatin chemosensitization March?January. 11/07/2021: PEG tube placement, tracheostomy, composite resection [...] proximal esophagus with dilation up to 42 Kenyan savory dilator. He did well up until a month ago where he had a worsening sw allowing. He will undergo repeat upper endoscopy with Botox injection and dilation of the esophagus. 04/15/25 0741 Cosigner Signature (if applicable): CC: YARI Santiago; Elliott Akhtar, ~ Signed [facility]07-24-2025 [facility] Medical Records Department [address] [place] [address] History Physical Exam 04/15/25 0739 MR#: [id number] Acct: [id number] Name: MY JAMA Rep #: [id number] : 1960 64 From: Elliott Akhtar DO PCP: YARI Santillan Status:REG [facility] Location: [place] [address] HPI - General General Date of Admission: 04/15/25 Date of Service: 04/15/25 Chief Complaint: Esophageal dysphagia HPI Narrative MY JAMA, is a 64 M who presents for an upper endoscopy regarding severe esophageal dysphagia secondary to radiation. [facility] established for management of mouth [...] 5..24 pt reports continued difficulty swallowing. EGD 02.19. The nasopharynx and oropharynx are abnormal. Benign-appearing esophageal stenosis. Dilated. Injected with botulinum toxin. No gross lesions in the entire stomach. No gross lesions in the duodenal bulb. No specimens collected. Modified Barium Swallow 10..24 Severe oropharyngeal dysphagia OV 11.24 pt reports continued difficulty swallowing, denies other GI symptoms of concern at this time. EGD 10.21.24 Benign-appearing esophageal stenosis. Dilated. Small hiatal hernia. No gross lesions in the duodenal bulb. No specimens collected. Modified Barium Swallow 3..25 severe oropharyngeal dysphagia OV 5.25 pt reports that he is feeling well overall and denies GI symptoms of concern, but would like to schedule his next EGD. [facility] Medical History Wears hearing [...] tablet 5 mg PO BID PRN pain 05/23/22/01/15 History Levothyroxine 100 mcg PO DAILY thyroid [...] ( 01/26/19) S/P percuta (more content not included)...[facility]07-09-2025 Procedure note [facility] Pulmonary Services/Neurology [address] [place] [address] MR#: [id number] Acct: [id number] Name: MY JAMA Rep #:[id number] : 1960 64 From: Loretta Rausch MD Referring Dr: James Stephens tatus: REG CLI Location: PSN Date: 03/31/25 Sex: M C NCS and/or [...] Multi Select Codes Neurology Neurology Interp Codes: 87515-93 Musc test done w/n test comp (interp) and 21871-74 Nrv cndj tst 5-6 studies (interp) 03/31/25 1533 D> Date _ Loretta Rausch MD CC: BMET-C Sadie Santiago; Dr. Loretta Rausch MD; Dr. 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 No evidence of disease today [facility] Work Phone: 1(767) 184-214206-22-2025 Evaluation + Plan note* Assessment & Plan Note - Rachel Brooks MD - 03/14/2025 3:32 PM EDTAssociated Problem(s): Cancer of oral cavity (Multi) No evidence of disease on exam or endoscopy today Follow up in 6 months with new H&N attending since I am leaving, discussed transition and offered encouragement [facility] Work Phone: 1(628) 335-105406-22-2025 Miscellaneous Notes* Assessment & Plan Note - [...] is a contributing factor documented in this [facility] Work Phone: 1(397) 285-766606-11-2025 Procedure note [facility] Pulmonary Services/Neurology [address] [place] [address] MR#: [id number] Acct: [id number] Name: MY JAMA Rep #:[id number] : 1960 64 From: Loretta Rausch MD Referring Dr: James Stephens tatus: REG CLI Location: [facility] Date: 03/03/25 Sex: M C NCS and/or [...] cervical radiculopathy Multi Select Codes Neurology Neurology Inter Codes: 30176-19 Musc test done w/n test comp (interp) (2) and 11942-16 Nrv cndj test 11-12 studies (interp) 03/03/25 1528 D> Date _ Loretta Rausch MD CC: BMET-C Sadie Santiago; Dr. Loretta Rausch MD; Dr. James Stephens, ~ Date Dictated: 03/03/251518 Date Transcribed: 03/03/251518 Marketing Proposal Specialist: BROCK Funez [facility]06-09-2025 Evaluation + Plan note* Assessment & Plan Note - Rachel Brooks MD - 03/01/2025 11:39 AM EDTAssociated Problem(s): Oropharyngeal dysphagia Chronic, moderate to severe He is requiring repeated dilations every 6 months Discussed total laryngectomy (as described above) but has severe wound healing issues and Continue current diet and modifications Weight stable [facility] Work Phone: 1(208) 500-735206-09-2025 Evaluation + Plan note* Assessment & Plan Note - Rachel Brooks MD - 03/01/2025 11:01 AM EDTAssociated Problem(s): Hypothyroidism Chronic, acquired Adverse effect of radiation Continue daily synthroid [facility] Work Phone: 1(920) 625-551806-09-2025 Evaluation + Plan note* Assessment & Plan [...] alternatives. He is going to consider this. [facility] Work Phone: [phone]) 145-252406-09-2025 Evaluation + Plan note* Assessment & Plan Note - Rachel Brooks MD - 03/01/2025 10:56 AM EDTAssociated Problem(s): Sensorineural hearing loss (SNHL) of both ears Does well with bilateral BRENNAN Bilateral SNHL - Chemotherapy is a contributing factor [facility] Work Phone: 1(774) 451-124606-09-2025 History of Present illness Narrative* Rachel Brooks MD - 03/01/2025 8:30 AM EDT Cancer follow up HPI: My Jama is a 64 y.o. male following up with me today for his O4I1hN1 oral cavity SCCa withchin involvement. Last seen 09/15. He has a history of P1S3yK0 oral cavity SCCa with chin involvement s/p [...] moderate. No new concerns today. History: Dx1: KyH5cJ5 left neck (unknown primary) 2018 Dx2: Q6M2bW2 SCCa of the oral cavity 2020 Dx3: [...] no lymphadenopathy 09/12: [facility] +SCCa 10/14: PET FDG avid [...] 08/31/24: Persistent neck wound stable - no spinning frame changer the last 2 yrs 10/17: Dilation [...] for new speaking valve Will order from [place] 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 [...] exam, discussion and plan. [facility]: 1(275) 670-824006-09-2025 Instructions* Patient Instructions* Koki Schneider RN - 03/01/2025 8:[address] Brooks evaluated you today. Your care plan is outlined below: -- Follow up with Dr. Dayami Jha in May. Call [phone] to schedule this appointment. General appointment line please call [phone] For general questions or scheduling issues please call [phone] option #2 For medical questions or surgery scheduling please call [phone] on Mondays, Wednesdays and or [phone] on Tuesdays and Fridays. Please be sure [...] We appreciate your understanding. [facility]: 1([phone]) 794-932204-15-2025 Evaluation note* Diagnosis Onset Date Resolution Status Admit Date Head and neck cancer chronic Apri l 2024 10:58am Lung nodules chronic January 05, 2025 10:58am 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 January 05, 2025 10:58am History of head and neck cancer acute February 02, 2025 9 :28am Esophageal dysphagia chronic February 11, 2025 7:56am [facility] Work Phone: 1(303) 181-669004-15-2025 Evaluation note* Diagnosis Onset Date Resolution Status Admit Date Head and neck cancer chronic Apri l 2024 10:58am Lung nodules chronic January 05, 2025 10:58am 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 January 05, 2025 10:58am History of head and neck cancer acute February 02, 2025 9 :28am Esophageal dysphagia chronic February 11, 2025 7:56am Esophageal dysphagia chronic April 15, 2025 7:13am [facility] Work Phone: 1(661) 847-170004-09-2025 Radiology Diagnostic study note [facility] Imaging Services [address] [facility] [place] [place], [place] [address] Chest WITH Contrast MR#: [id number] Acct: [id number] Name: MY JAMA Rep #: [id number] : 1960 M 64 From: Laney Centeno MD PCP: Sadie Santiago NP-C Status: REG C SONY Study:Chest WITH Contrast Date of Exam: 12/29/24 Exam# [id number] Ordering Dr: Quincy Simpson MD PROCEDURE: CHEST [...] within the right upper lobe. Reading Location: [id number] CC: YARI Santiago; Dr. Quincy Simpson MD ~ Marketing Proposal Specialist: Signed [facility]03-28-2025 Procedure note [facility] Speech Pathology [address] [place] [address] Modified Barium Swallow Study MR#: [id number] Acct: [id number] Name: MY JAMA Rep #:[id number] : 1960 64 From: Latosha Verma [facility]-ASSOCIATE SALES MANAGER Verbal discussion with patient about POC 12/18/2024: ASSOCIATE SALES MANAGER attempted to call the patient 12/17/[address] POC after interpretation ofMBSS, but pt had phone difficulties. Pt came into the office 12/18/2024 for this discussion. Unfortunately, the patient is not a candidate for participation in [place] [facility] (MDTP) following results ofMBSS revealing silent aspiration. Pt also has contraindications including severe fibrosis, presenceof trach, and esophageal dysphagia. ASSOCIATE SALES MANAGER recommended continuing with therapy 3-4X/week, X3-5 weeks for implementation of oropharyngeal strengthening,jaw ROM, and neck ROM exercises in junction w/ myofascial release. Pt is unable to attend therapy this coming Saturday, and the ASSOCIATE SALES MANAGER is out of the office this upcoming Saturday. Myofascial release is best completed in a more intensive therapy model (ASSOCIATE SALES MANAGER recommends 3-4X/week, X3-5 weeks) to be effective. Pt requested resuming dysphagia therapy after ASSOCIATE SALES MANAGER submits re-evaluation as he wouldonly be able [...] after POintake. Hx of esophageal dysphagiamanaged by pleating machine operator, Dr. Akhtar, s/p EGD w/ botox injection [...] patient was interested in the program, so ASSOCIATE SALES MANAGER recommended this MBSS as re-evaluation to determine [...] Result: 8= enters airway/below vocal folds/no effort [place] Thick Liquid via teaspoon: Result: 3= enters airways/above vocal folds/not ejected [place] Thick Liquid via teaspoon Trial 2: Result: [...] Status Active ST Patient: Active Contact Information [facility] Speech Therapy:: Latosha Boyer M.A. CCC-ASSOCIATE SALES MANAGER? Speech-Language Pathologist?? [facility] [address] [place] [address]? [email or web address]?? [phone] 12/17/24 1628 [place] CCC-ASSOCIATE SALES MANAGER> Date/Time Latosha Boyer M.A. CCC-ASSOCIATE SALES MANAGER Co-Signature Required for all Medicare patients Date/Time Co-Signature CC: ~ [facility]01-29-2025 Evaluation note* Diagnosis Onset Date Resolution Status Admit Date Esophageal dysphagia chronic Aquiles glory 2024 5:27am Head and neck cancer chronic Apri l 2024 10:58am Lung nodules chronic January 05, 2025 10:58am Regional lymph node metastasis present chronic January 05, 025 10:58am [facility] Work Phone: [phone]) 440-661001-29-2025 [facility] Medical Records Department [address] [place] [address] History Physical Exam 10/21/24 0708 MR#: [id number] Acct: [id number] Name: MY JAMA Rep #: [id number] : 1960 64 From: Elliott Friend PCP: YARI Santillan Status:REG [facility] Location: [place] [address] HPI - General General Date of Admission: 10/21/24 Date of Service: 10/21/24 Chief Complaint: dysphagia HPI Narrative MY JAMA, is a 64 M who presents for esophageal dilation [facility] established for management of mouth [...] proximal esophagus with dilation up to 42 Kenyan savory dilator. He did well up until [...] Unknown Rx tablet nyst (more content not included)...[facility]12-16-2024 Evaluation note* Diagnosis Onset Date Resolution Status [...] 2024 11:59am Esophageal dysphagia chronic 2024 5:27am [facility] Work Phone: 1(732) 787-958212-09-2024 Evaluation + Plan note* Assessment & Plan Note - Rachel Brooks MD - 08/31/2024 9:59 AM ESTAssociated Problem(s): Open wound of neck Referral back to wound center [facility] Work Phone: [phone]) 462-190312-09-2024 Evaluation + Plan note* Assessment & Plan Note - Rachel Brooks MD - 08/31/2024 9:59 AM ESTAssociated Problem(s): 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) No evidence of disease today [facility] Work Phone: [phone] Evaluation + Plan note* Assessment & Plan Note - Rachel Brooks MD - 08/31/2024 9:59 AM ESTAssociated Problem(s): Cancer of oral cavity (Multi) No evidence of disease on exam or endoscopy today Follow up in 6 months [facility] Work Phone: [phone] 545-322512-09-2024 Evaluation + Plan note* Assessment & Plan [...] Continue current diet and modifications Weight stable [facility] Work Phone: [phone]) 700-576512-09-2024 Miscellaneous Notes* Assessment & Plan Note - [...] is a contributing factor documented in this [facility] Work Phone: 1([phone]) 623-526712-09-2024 Evaluation + Plan note* Assessment & Plan Note - Rachel Brooks MD - 08/31/2024 9:58 AM ESTAssociated Problem(s): Hypothyroidism Chronic, acquired Adverse effect of radiation Continue daily synthroid [facility] Work Phone: [phone] Evaluation + Plan note* Assessment & Plan Note - Rachel Brooks MD - 08/31/2024 9:58 AM ESTAssociated Problem(s): Tracheostomy dependence (Multi) Discussed that his airway is too restricted to consider trach removal Continue trach care Uses finger to cap when speaking has difficulty even with speaking valve [facility] Work Phone: [phone]) 196-779512-09-2024 Evaluation + Plan note* Assessment & Plan Note - Rachel Brooks MD - 08/31/2024 9:57 AM ESTAssociated Problem(s): Sensorineural hearing loss (SNHL) of both ears Good response to BRENNAN - wearing them today and doing well Bilateral SNHL Chemotherapy is a contributing factor [facility] Work Phone: [phone]) 572-990912-09-2024 History of Present illness Narrative* Rachel Brooks MD - 08/31/2024 9:00 AM EST Cancer follow up HPI: My Jama is a 64 y.o. male following up with me today for follow up of his L3Q4kV5 oral cavity SCCa with chin involvement. Last seen 04/15. Continues with Amber SCOTT. Is no longer capping as much. Reports it is harder for him to breath when he caps it. Wound has remained open in the left neck despite yrs of wound care so he stopped seeing them. He has a history of Y2O5jI3 oral cavity SCCa with chin involvement s/p [...] SNHL kizzy in high freq. History: Dx1: CfB0zX7 left neck (unknown primary) 2018 Dx2: Y0U1fJ3 SCCa of the oral cavity 2020 Dx3: [...] no lymphadenopathy 09/12: [facility] 10/14: PET FDG avid [...] exam, discussion and plan. documented in this [facility] Work Phone: 1([phone]) 208-943812-09-2024 Instructions* Patient Instructions* Koki Schneider RN - 08/31/2024 9:[address] Brooks evaluated you today. Your care plan is outlined below: -- see wound care -- Follow up with Dr. Brooks in 6 mo. This appointment was scheduled at the end of your visit today. If you need to reschedule, please call the office at [phone]. Please keep in mind that last minute cancellations often result in delayed follow-up appointments. General appointment line please call [phone] For general questions or scheduling issues please call [phone] option #2 For medical questions or surgery scheduling please call [phone] on Mondays, Wednesdays and or [phone] on Tuesdays and Fridays. Please be sure [...] We appreciate your understanding. documented in this [facility] Work Phone: 1(126) 731-379810-02-2024 Procedure note [facility] Speech Pathology [address] [place] [address] Modified Barium Swallow Study MR#: [id number] Acct: [id number] Name: MY JAMA Rep #:[id number] : 1960 64 From: Latosha Verma, [facility]-ASSOCIATE SALES MANAGER Modified Barium Swallow Patient Information Study Date: [...] with clinical stage NOREEN (cTx cN2b M0) [id number] SCC of unknown primary with left neck [...] Result: 3= enters airways/above vocal folds/not ejected [place] Thick Liquid via small single sip: cup: [...] liquidized purees due to poor pharyngeal motility. ASSOCIATE SALES MANAGER recommends using multiple swallows w/ cough and [...] Status Active ST Patient: Active Contact Information [facility] Speech Therapy:: Latosha Boyer M.A. [facility]-ASSOCIATE SALES MANAGER? Speech-Language Pathologist?? [facility] [address] [place] [address]? ?? [phone] 06/24/24 Carrington Boogie CCC-ASSOCIATE SALES MANAGER> Date/Time Latosha Boyer M.A., CCC-ASSOCIATE SALES MANAGER Co-Signature Required for all Medicare patients Date/Time Co-Signature CC: ~ [facility]07-22-2024 Evaluation + Plan note* Assessment & Plan Note - Rachel Brooks MD - 04/13/2024 2:34 PM EDTAssociated Problem(s): Tracheostomy dependence (Multi) Discussed that his airway is too restricted to consider trach removal Continue trach care Can use speaking valve during day [facility] Work Phone: 1([phone]) [phone] Miscellaneous Notes* Assessment & Plan Note - [...] is a contributing factor [facility] Work Phone: 1([phone]) 411-306107-22-2024 Evaluation + Plan note* Assessment & Plan Note - Rachel Brooks MD - 04/13/2024 2:33 PM EDTAssociated Problem(s): 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 Akhtar 02/13 Continue current diet and modifications Weight stable [facility] Work Phone: 1(870) 632-194807-22-2024 Evaluation + Plan note* Assessment & Plan Note - Rachel Brooks MD - 04/13/2024 2:32 PM EDTAssociated Problem(s): Hypothyroidism Chronic, acquired Adverse effect of radiation Continue daily synthroid [facility] Work Phone: [phone]) [phone] Evaluation + Plan note* Assessment & Plan Note - Rachel Brooks MD - 04/13/2024 2:31 PM EDTAssociated Problem(s): Sensorineural hearing loss (SNHL) of both ears Reviewed audiogram obtained today Has BRENNAN and is using these Chemotherapy is a contributing factor [facility] Work Phone: [phone] 201-362407-22-2024 History of Present illness Narrative* Rachel Brooks MD - 04/13/2024 1:45 PM EDT Cancer follow up HPI: My Jama is a 63 y.o. male following up with me today for follow up of his D5F6sE2 oral cavity SCCa with chin involvement. Last seen 02/13. Continues with Amber MAGAÑAT, caps during day but he forgot it today. Wound has remained open in the left neck despite yrs of wound care. He has a history of U2B7eQ2 oral cavity SCCa with chin involvement s/p [...] SNHL kizzy in high freq. History: Dx1: ZoW6bP3 left neck (unknown primary) 2018 Dx2: I3N3uE5 SCCa of the oral cavity 2020 Dx3: [...] no lymphadenopathy 09/12: [facility] 10/14: PET FDG avid oral cavity mass w/bone involvement SUV12, no lymphadenopathy or distant metastasis 11/07/21: S/p triple, trach, PEG, composite resection, excision of skin and soft tissue, segmental mandibulectomy, right neck dissection, left neck exploration for vessels, reconstruction with left ALT and left fibular free flap. Path + 6.5cm SCCa, 3 lymph nodes + metastasis. 11/10/21: S/p left [...] exam, discussion and plan. 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 Akhtar since it's very hard for him to get to [place] Seeing Dr. Akhtar on Saturday He will likely need another esoph dilation Has failed MBS but is tolerating po without PNA and does not want PEG [facility] Work Phone: [phone]) 140-173505-13-2024 Miscellaneous Notes* Assessment & Plan Note - [...] very hard for him to get to [place] Seeing Dr. Akhtar on Saturday He will [...] to follow with audiology documented in this [facility]Un[facility] Work Phone: 1([phone]) 268-895605-13-2024 Evaluation + Plan note* Assessment & Plan Note - Rachel Brooks MD - 02/03/2024 9:15 AM EDTAssociated Problem(s): Hypothyroidism Acquired hypothyroidism Continue daily synthroid [facility] Work Phone: [phone]) 771-243605-13-2024 Evaluation + Plan note* Assessment & Plan Note - Rachel Brooks MD - 02/03/2024 9:15 AM EDTAssociated Problem(s): Sensorineural hearing loss (SNHL) of both ears BRENNAN check today, doing well Continue to follow with audiology [facility] Work Phone: 1(773) 865-736805-13-2024 History of Present illness Narrative* Rachel Brooks MD - 02/03/2024 8:45 AM EDT Cancer follow up TSH: Chest: HPI: My Jama is a 63 y.o. male following up with me today for follow up of his H7Z9mL9 oral cavity SCCa with chin involvement. Last seen 09/14. He continues to be followed at the [facility] wound [facility] for his left neck chronic skin wound. Continues with Amber SCOTT, farrukh during day. Wound has remained open in the left neck. 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 Soto (rad onc) today. 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 Akhtar on Saturday He will [...] Neck Surgery By signing my name below, IKoki Scribe, attest that this documentation has been [...] exam, discussion and plan. documented [facility]The [facility] Work Phone: [phone]) [phone] Procedure [facility] 09-03-2023 Procedure [facility]12-11-2023 Evaluation + Plan note* Assessment & Plan Note - Rachel Brooks MD - 09/02/2023 11:13 PM EST Associated Problem(s): Cancer of oral cavity (CMS/HCC) No evidence of recurrence Adverse effects of treatment including dysphagia Remains trach/PEG dependent Has chronic left neck wound Follow up in 3-4 months [facility] Work Phone: [phone] Miscellaneous Notes* Assessment & Plan Note - [...] is inconvenient to him documented [facility]The [facility] Work Phone: [phone] Evaluation + Plan note* Assessment & Plan Note - Rachel Brooks MD - 09/02/2023 11:12 PM ESTAssociated Problem(s): Hypothyroidism Needs updated TSH [facility] Work Phone: [phone]) 293-901512-11-2023 Evaluation + Plan note* Assessment & Plan [...] in [place] which is inconvenient to him [facility] Work Phone: [phone]) 336-930112-11-2023 History of Present illness Narrative* Rachel Brooks MD - 09/02/2023 1:30 PM EST Cancer follow up TSH: Due today Chest: Due today HPI: My Jama is a 63 y.o. male following up with me today for follow up of his E9G2qX1 oral cavity SCCa with chin involvement. Last seen 03/15. He continues to be followed at the [facility] wound [facility] for his left neck chronic skin wound. Continues with Amber SCOTT caps during day. Wound has remained open in the left neck. He has a history of I6H6kD0 oral cavity SCCa with chin involvement s/p [...] speaks with his speaking valve. History: Dx1: MvF2pT4 left neck (unknown primary) 2018 Dx2: N9M0fJ4 SCCa of the oral cavity 202004/28/18: +odynophagia, [...] no lymphadenopathy 09/12: [facility] 10/14: PET FDG avid [...] size: 6 mm; Tracheostomy tube type: shiley; [place] speaking valve present; Neck comments: Superficial left [...] exam, discussion and plan. documented in this [facility] Work Phone: [phone] Instructions* Name Dates Details Follow up in 4-6 months Indication:Hypertension Start:22-Jul-2023 Instruction Type:Provider Instructions for Treatment Patient Instructions Indication:BMI 20.0-20.9, adult Start:22-Jul-2023 Instruction Type:Provider Instructions for Treatment How to Access Health Informa tion Online using Patient Portal and 3rd [employer] Apps Indication:BMI 20.0-20.9, adult Start:22-Jul-2023 Instruction Type:Patient Education Patient Instructions Indication:Tobacco abuse, in remission Start:16-Jan-2023 Instruction Type:Provider Instructions for Treatment How to Access Health Informa tion Online using Patient Portal and 3rd [employer] Apps Indication:Tobacco abuse, in remission Start:16-Jan-2023 Instruction Type:Patient Education Patient Instructions Indication:BMI less than 19,adult Start:15-Feb-2022 Instruction Type:Provider Instructions for Treatment How to Access Health Informa tion Online using Patient Portal and 3rd [employer] Apps Indication:BMI less than 19,adult Start:15-Feb-2022 Instruction Type:Patient Education Patient Instructions Indication:Hypothyroid Start:15-Dec-2021 Instruction Type:Provider Instructions for Treatment How to Access Health Informa tion Online using Patient Portal and 3rd [employer] Apps Indication:Hypothyroid Start:15-Dec-2021 Instruction Type:Patient Education Patient Instructions Indication:Smoker Start:15-Aug-2021 Instruction Type:Provider Instructions for Treatment How to Access Health Informa tion Online using Patient Portal and 3rd [employer] Apps Indication:Smoker Start:15-Aug-2021 Instruction Type:Patient Education Patient Instructions Indication:BMI 20.0-20.9, adult Start:26-Jul-2021 Instruction Type:Provider Instructions for Treatment How to Access Health Informa tion Online using Patient Portal and 3rd [employer] Apps Indication:BMI 20.0-20.9, adult Start:26-Jul-2021 Instruction Type:Patient Education Patient Instructions Indication:Dry mouth Start:13-Mar-2021 Instruction Type:Provider Instructions for Treatment How to Access Health Informa tion Online using Patient Portal and 3rd [employer] Apps Indication:Dry mouth Start:13-Mar-2021 Instruction Type:Patient Education Patient Instructions Indication:B12 nutritional deficiency Start:02-Dec-2020 Instruction Type:Provider Instructions for Treatment How to Access Health Informa tion Online using Patient Portal and 3rd [employer] Apps Indication:Smoker Start:02-Dec-2020 Instruction Type:Patient Education [...] Internal Medicine; [facility] Work Phone: 1(122) 525-243807-19-2023 Progress note Author Joya Galvez [facility] April 10, 2023 10:05am Note Date/Time April 10, 2023 10:0 5am [facility] [address] [place], [place] [address] [address] Progress Note - Wound Care 04/10/23 [facility] MR#: [id number] Acct: [id number] Name: MY JAMA Rep #:[id number] : 1960 62 From: Joya Galvez NP BMET-C PCP: YARI Pardo Status:REG RCR Location: History [...] of first interosseous muscles. Coordination / Balance: hdwghg-zv-pzcj test normal Speech: speech abnormal Gait (Neuro): [...] Recorded Date Recorded By Document 03/27/23 09:11 [facility] [id number] 03/27/23 09:17 [facility] Document 04/03/23 08:38 [facility] [id number] 04/03/23 08:45 [facility] Document 04/10/23 08:36 [facility] [id number] 04/10/23 08:41 [facility] 03/27/23 04/03/23 04/10/23 09:11 08:38 08:36 - Today's Visit Information Type of service Follow-up Visit Follow-up Visit 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 (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 ) ) ) Arrival Mode Ambulatory Ambulatory [...] Recorded Date Recorded By Document 03/27/23 09:11 [facility] [id number] 03/27/23 09:17 [facility] Document 04/03/23 08:38 [facility] [id number] 04/03/23 08:45 BM Document 04/10/23 08:36 [facility] [id number] 04/10/23 08:41 BM 03/27/23 04/03/23 04/10/23 09:11 08:38 08:36 Wound [...] Attached -Granulation Amt Small (1-33%) -Granulation Quality [place] -Slough/Fibrin Yes -Necrosis Amt Large (67-100%) -Necrotic [...] Date Recorded By Document 03/27/23 09:34 MW [id number] 03/27/23 09:36 MW Document 04/03/23 08:56 MW [id number] 04/03/23 08:59 MW Document 04/10/23 08:48 MW [id number] 04/10/23 08:51 MW 03/27/23 04/03/23 04/10/23 09:34 [...] Date Recorded By Document 03/27/23 09:40 MW [id number] 03/27/23 09:40 MW Document 04/03/23 08:59 MW [id number] 04/03/23 09:00 MW Document 04/10/23 08:51 MW [id number] 04/10/23 08:52 MW 03/27/23 04/03/23 04/10/23 09:40 [...] 1005 <Electronically signed by Joya Galvez NP BMET-C> Cosigner Signature (if applicable): CC: ~ Signed [facility] Work Phone: 1(397) 183-589707-12-2023 Progress note Author Joya Galvez [facility] April 03, 2023 10:07am Note Date/Time April 03, 2023 9:51 am [facility] [address] [place] [address] Progress Note - Wound Care 04/03/23 0950 MR#: [id number] Acct: [id number] Name: MY JAMA Rep #:[id number] : 1960 62 From: Joya Galvez NP BMET-C PCP: ERWIN PardoC Status:REG RCR Location: History [...] of first interosseous muscles. Coordination / Balance: enusdf-er-zgtt test normal Speech: speech abnormal Gait (Neuro): [...] Recorded Date Recorded By Document 03/27/23 09:11 [facility] [id number] 03/27/23 09:17 [facility] Document 04/03/23 08:38 [facility] [id number] 04/03/23 08:45 [facility] 03/27/23 04/03/23 09:11 08:38 - Today's Visit Information Type of service Follow-up Visit 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 ) ) Arrival Mode Ambulatory Ambulatory Transfer [...] Recorded Date Recorded By Document 03/27/23 09:11 [facility] [id number] 03/27/23 09:17 [facility] Document 04/03/23 08:38 [facility] [id number] 04/03/23 08:45 [facility] 03/27/23 04/03/23 09:11 08:38 Wound Center [...] Attached -Granulation Amt Small (1-33%) -Granulation Quality [place] -Slough/Fibrin Yes -Necrosis Amt Large (67-100%) -Necrotic [...] Date Recorded By Document 03/27/23 09:34 MW [id number] 03/27/23 09:36 MW Document 04/03/23 08:56 MW [id number] 04/03/23 08:59 MW 03/27/23 04/03/23 09:34 08:56 [...] Date Recorded By Document 03/27/23 09:40 MW [id number] 03/27/23 09:40 MW Document 04/03/23 08:59 MW [id number] 04/03/23 09:00 MW 03/27/23 04/03/23 09:40 08:59 [...] 1007 <Electronically signed by Joya Galvez NP BMET-C> Cosigner Signature (if applicable): CC: ~ Signed [facility] Work Phone: 1(246) 563-236407-05-2023 Progress note Author Joya Galvez [facility] March 27, 2023 12:15pm Note Date/Time March 27, 2023 12:15 pm [facility] [address] [place] [address] [id number] Progress Note - Wound Care 03/27/23 1212 MR#: [id number] Acct: [id number] Name: MY JAMA Rep #:[id number] : 1960 62 From: Joya Galvez NP BMET-C PCP: Kamryn Gonzalez NP-Damaris Status:REG RCR Location: History of Present Illness [...] of first interosseous muscles. Coordination / Balance: rswukr-nh-ahcb test normal Speech: speech abnormal Gait (Neuro): [...] Recorded Date Recorded By Document 03/27/23 09:11 [facility] [id number] 03/27/23 09:17 [facility] 03/27/23 09:11 - Today's Visit Information Type of 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 ) Arrival Mode Ambulatory Transfer Assistance None [...] Recorded Date Recorded By Document 03/27/23 09:11 [facility] [id number] 03/27/23 09:17 [facility] 03/27/23 09:11 Wound Center Nurse 1 [...] Date Recorded By Document 03/27/23 09:34 MW [id number] 03/27/23 09:36 MW 03/27/23 09:34 Wound Center [...] Date Recorded By Document 03/27/23 09:40 MW [id number] 03/27/23 09:40 MW 03/27/23 09:40 Wound Care [...] 1215 <Electronically signed by Joya Galvez NP BMET-C> Cosigner Signature (if applicable): CC: ~ Signed [facility] Work Phone: 1(279) 274-593406-28-2023 Progress note Author Joya Galvez [facility] March 20, 2023 11:22am Note Date/Time March 20, 2023 11:2 2am [facility] [address] [place] [address] Progress Note - Wound Care 03/20/23 1119 MR#: [id number] Acct: [id number] Name: MY JAMA Rep #:[id number] : 1960 62 From: Joya Galvez NP BMET-C PCP: YARI Pardo Status:REG RCR Location: History [...] of first interosseous muscles. Coordination / Balance: npkwbc-qo-ccdi test normal Speech: speech abnormal Gait (Neuro): [...] Recorded Date Recorded By Document 02/27/23 10:23 NV [id number] 02/27/23 10:25 NV Document 03/06/23 11:03 [facility] [id number] 03/06/23 11:07 [facility] Document 03/13/23 09:28 [facility] [id number] 03/13/23 09:33 [facility] Document 03/20/23 09:07 [facility] [id number] 03/20/23 09:08 [facility] 02/27/23 03/06/23 03/13/23 10:23 11:03 09:28 - Today's Visit Information Type of service Follow-up Visit Follow-up Visit 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 (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 ) ) ) Arrival Mode Ambulatory Ambulatory [...] Visit Information Type of 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 ) Arrival Mode Ambulatory Transfer Assistance None [...] Recorded Date Recorded By Document 02/27/23 10:23 NV [id number] 02/27/23 10:25 NV Document 03/06/23 11:03 [facility] [id number] 03/06/23 11:07 [facility] Document 03/13/23 09:28 [facility] [id number] 03/13/23 09:33 [facility] Document 03/20/23 09:07 [facility] [id number] 03/20/23 09:08 [facility] 02/27/23 03/06/23 03/13/23 10:23 11:03 09:28 [...] (1-33%) Small (1-33%) Small (1-33%) -Granulation Quality Pale,Cl[place] Red [place] -Slough/Fibrin Yes Yes Yes -Necrosis Amt Large [...] Intact -Granulation Amt Medium (34-66%) -Granulation Quality [place] -Slough/Fibrin Yes -Necrosis Amt Medium (34-66%) -Necrotic [...] 02/27/23 09:27 MW Document 03/06/23 11:10 MW [id number] 03/06/23 11:25 MW Document 03/13/23 09:49 MW [id number] 03/13/23 09:50 MW 02/27/23 03/06/23 03/13/23 09:27 [...] 02/27/23 09:31 MW Document 03/06/23 11:20 MW [id number] 03/06/23 11:29 MW Document 03/13/23 09:55 MW [id number] 03/13/23 09:56 MW Document 03/20/23 11:08 AK [id number] 03/20/23 11:09 [place] 02/27/23 03/06/23 03/13/23 09:30 [...] 03/20/231121 <Electronically signed by Joya Galvez NP BMET-C> Cosigner Signature (if applicable): CC: ~ Signed [facility] Work Phone: 1(966) 962-469906-21-2023 Progress note Author Joya Galvez [facility] March 13, 2023 11:25am Note Date/Time March 13, 2023 11:2 5am [facility] [address] [place] [address] [place] [address] Progress Note - Wound Care 03/13/231122 MR#: [id number] Acct: [id number] Name: MY JAMA Rep #:[id number] : 1960 62 From: Joya Galvez NP BMET-C PCP: YARI Pardo Status:REG RCR Location: History [...] of first interosseous muscles. Coordination / Balance: mlvajn-hn-aklk test normal Speech: speech abnormal Gait (Neuro): [...] Recorded Date Recorded By Document 02/27/23 10:23 NV [id number] 02/27/23 10:25 NV Document 03/06/23 11:03 [facility] [id number] 03/06/23 11:07 [facility] Document 03/13/23 09:28 [facility] [id number] 03/13/23 09:33 [facility] 02/27/23 03/06/23 03/13/23 10:23 11:03 09:28 - Today's Visit Information Type of service Follow-up Visit Follow-up Visit 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 (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 ) ) ) Arrival Mode Ambulatory Ambulatory [...] Recorded Date Recorded By Document 02/27/23 10:23 NV [id number] 02/27/23 10:25 NV Document 03/06/23 11:03 [facility] [id number] 03/06/23 11:07 [facility] Document 03/13/23 09:28 [facility] [id number] 03/13/23 09:33 [facility] 02/27/23 03/06/23 03/13/23 10:23 11:03 09:28 [...] (1-33%) Small (1-33%) Small (1-33%) -Granulation Quality Pale,Cl[place] Red [place] -Slough/Fibrin Yes Yes Yes -Necrosis Amt Large [...] 02/27/23 09:27 MW Document 03/06/23 11:10 MW [id number] 03/06/23 11:25 MW Document 03/13/23 09:49 MW [id number] 03/13/23 09:50 MW 02/27/23 03/06/23 03/13/23 09:27 [...] 02/27/23 09:31 MW Document 03/06/23 11:20 MW [id number] 03/06/23 11:29 MW Document 03/13/23 09:55 MW [id number] 03/13/23 09:56 MW 02/27/23 03/06/23 03/13/23 09:30 [...] 1125 <Electronically signed by Joya Galvez NP BMET-C> Cosigner Signature (if applicable): CC: ~ Signed [facility] Work Phone: 1(939) 213-977806-14-2023 Progress note Author Joya Galvez [facility] March 06, 2023 11:39am Note Date/Time March 06, 2023 11:3 9am [facility] [address] [place] [address] Progress Note - Wound Care 03/06/23 1135 MR#: [id number] Acct: [id number] Name: ANAMY W Rep #:[id number] : 1960 62 From: Joya Galvez NP BMET-C PCP: Kamryn Gonzalez NP-C Status:REG RCR Location: History of [...] of first interosseous muscles. Coordination / Balance: rynkzr-sn-ipvi test normal Speech: speech abnormal Gait (Neuro): [...] Recorded Date Recorded By Document 02/27/23 10:23 NV [id number] 02/27/23 10:25 NV Document 03/06/23 11:03 [facility] [id number] 03/06/23 11:07 [facility] 02/27/23 03/06/23 10:23 11:03 - Today's Visit Information Type of service Follow-up Visit 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 ) ) Arrival Mode Ambulatory Ambulatory Transfer [...] Recorded Date Recorded By Document 02/27/23 10:23 NV [id number] 02/27/23 10:25 NV Document 03/06/23 11:03 [facility] [id number] 03/06/23 11:07 [facility] 02/27/23 03/06/23 10:23 11:03 Wound Center [...] Amt Small (1-33%) Small (1-33%) -Granulation Quality Pale,Cl[place]pool Red -Slough/Fibrin Yes Yes -Necrosis Amt Large [...] Used 4% Lidocaine 5% Lidocaine Solution Gel - Nurse 2 - General Ulcer CM Notes Start: 02/27/23 09:26 Freq: Status: Active Protocol: Activity Type Activity Date Activity User E-sign Co-sign Detail Recorded Client Recorded Date Recorded By Document 02/27/23 09:27 MW Desktop 02/27/23 09:27 MW Document 03/06/23 11:10 MW [id number] 03/06/23 11:25 MW 02/27/23 03/06/23 09:27 11:10 [...] 02/27/23 09:31 MW Document 03/06/23 11:20 MW [id number] 03/06/23 11:29 MW 02/27/23 03/06/23 09:30 11:20 [...] 1139 <Electronically signed by Joya Galvez NP BMET-C> Cosigner Signature (if applicable): CC: ~ Signed [facility] Work Phone: 1(295) 144-517106-07-2023 Progress note Author Joya Galvez [facility] February 27, 2023 10:07am Note Date/Time February 27, 2023 10:05 am [facility] [address] [facility] [place] [address] Progress Note - Wound Care 02/27/23 1003 MR#: [id number] Acct: [id number] Name: MY JAMA Rep #:[id number] : 1960 62 From: Joya Galvez NP BMET-C PCP: YARI Pardo Status:REG RCR Location: History [...] of first interosseous muscles. Coordination / Balance: xomcla-ea-scpr test normal Speech: speech abnormal Gait (Neuro): [...] 1007 <Electronically signed by Joya Galvez NP BMET-C> Cosigner Signature (if applicable): CC: ~ Signed [facility] Work Phone: 1(564) 843-523705-31-2023 Progress note Author Joya Galvez [facility] February 20, 2023 9:05am Note Date/Time February 20, 2023 9:05a m [facility] [address] [place] [address] Progress Note - Wound Care 02/20/23 0902 MR#: [id number] Acct: [id number] Name: MY JAMA Rep #:[id number] : 1960 62 From: Joya Galvez NP BMET-C PCP: YARI Pardo Status:REG RCR Location: History [...] of first interosseous muscles. Coordination / Balance: nkmhdn-te-oucd test normal Speech: speech abnormal Gait (Neuro): [...] Recorded Date Recorded By Document 01/23/23 08:17 [facility] [id number] 01/23/23 08:26 [facility] Document 01/30/23 08:27 [facility] [id number] 01/30/23 08:33 [facility] Document 02/06/23 08:18 [facility] [id number] 02/06/23 08:23 [facility] Document 02/13/23 08:33 [facility] [id number] 02/13/23 08:40 [facility] Document 02/20/23 08:46 MW [id number] 02/20/23 08:49 MW 01/23/23 01/30/23 02/06/23 08:17 08:27 08:18 - Today's Visit Information Type of service Follow-up Visit Follow-up Visit 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 (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 ) ) ) Arrival Mode Ambulatory Ambulatory [...] Type of service Follow-up Visit 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 ) ) Arrival Mode Ambulatory Ambulatory Transfer [...] Recorded Date Recorded By Document 01/23/23 08:17 [facility] [id number] 01/23/23 08:26 [facility] Document 01/30/23 08:27 BM [id number] 01/30/23 08:33 [facility] Document 02/06/23 08:18 BM [id number] 02/06/23 08:23 BM Document 02/13/23 08:33 BM [id number] 02/13/23 08:40 [facility] Document 02/20/23 08:46 MW [id number] 02/20/23 08:49 MW 01/23/23 01/30/23 02/06/23 08:17 [...] (1-33%) Medium (34-66%) Small (1-33%) -Granulation Quality [place] Red -Slough/Fibrin Yes Yes Yes -Necrosis Amt [...] Present (0 Small (1-33%) %) -Granulation Quality [place] -Slough/Fibrin Yes Yes -Necrosis Amt Large (67-100%) [...] Date Recorded By Document 01/23/23 08:48 MW [id number] 01/23/23 08:50 MW Document 01/30/23 08:46 MW [id number] 01/30/23 08:47 MW Document 02/06/23 08:39 PL [id number] 02/06/23 08:40 PL Document 02/13/23 08:45 MW [id number] 02/13/23 08:52 MW Document 02/20/23 08:49 MW [id number] 02/20/23 08:55 MW 01/23/23 01/30/23 02/06/23 08:48 [...] Date Recorded By Document 01/23/23 08:56 BMF [id number] 01/23/23 08:57 BMF Document 01/30/23 08:47 MW [id number] 01/30/23 08:48 MW Document 02/06/23 08:41 RB [id number] 02/06/23 08:41 RB Document 02/13/23 08:54 MW [id number] 02/13/23 08:54 MW Document 02/20/23 08:55 MW [id number] 02/20/23 08:56 MW 01/23/23 01/30/23 02/06/23 08:56 [...] 0905 <Electronically signed by Joya Galvez NP BMET-C> Cosigner Signature (if applicable): CC: ~ Signed [facility] Work Phone: 1(825) 305-479805-24-2023 Progress note Author Joya Galvez [facility] February 13, 2023 11:51am Note Date/Time February 13, 2023 11:51 am [facility] [address] [place] [address] Progress Note - Wound Care 02/13/23 1147 MR#: [id number] Acct: [id number] Name: MY JAMA Rep #:[id number] : 1960 62 From: Joya Galvez NP BMET-C PCP: Kamryn Ciesa, BMET-C Status:REG RCR Location: History of Present Illness [...] of first interosseous muscles. Coordination / Balance: rnnswd-ys-wdxq test normal Speech: speech abnormal Gait (Neuro): [...] Recorded Date Recorded By Document 01/23/23 08:17 [facility] [id number] 01/23/23 08:26 [facility] Document 01/30/23 08:27 [facility] [id number] 01/30/23 08:33 [facility] Document 02/06/23 08:18 [facility] [id number] 02/06/23 08:23 [facility] Document 02/13/23 08:33 [facility] [id number] 02/13/23 08:40 [facility] 01/23/23 01/30/23 02/06/23 08:17 08:27 08:18 - Today's Visit Information Type of service Follow-up Visit Follow-up Visit 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 (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 ) ) ) Arrival Mode Ambulatory Ambulatory [...] Visit Information Type of 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 ) Arrival Mode Ambulatory Transfer Assistance None [...] Recorded Date Recorded By Document 01/23/23 08:17 [facility] [id number] 01/23/23 08:26 [facility] Document 01/30/23 08:27 [facility] [id number] 01/30/23 08:33 [facility] Document 02/06/23 08:18 [facility] [id number] 02/06/23 08:23 BM Document 02/13/23 08:33 [facility] [id number] 02/13/23 08:40 F 01/23/23 01/30/23 02/06/23 08:17 [...] (1-33%) Medium (34-66%) Small (1-33%) -Granulation Quality [place] Red -Slough/Fibrin Yes Yes Yes -Necrosis Amt [...] Date Recorded By Document 01/23/23 08:48 MW [id number] 01/23/23 08:50 MW Document 01/30/23 08:46 MW [id number] 01/30/23 08:47 MW Document 02/06/23 08:39 PL [id number] 02/06/23 08:40 PL Document 02/13/23 08:45 MW [id number] 02/13/23 08:52 MW 01/23/23 01/30/23 02/06/23 08:48 [...] Recorded Date Recorded By Document 01/23/23 08:56 [facility] [id number] 01/23/23 08:57 BMF Document 01/30/23 08:47 MW [id number] 01/30/23 08:48 MW Document 02/06/23 08:41 RB [id number] 02/06/23 08:41 RB Document 02/13/23 08:54 MW [id number] 02/13/23 08:54 MW 01/23/23 01/30/23 02/06/23 08:56 [...] 1151 <Electronically signed by Joya Galvez NP BMET-C> Cosigner Signature (if applicable): CC: ~ Signed [facility] Work Phone: 1(876) 621-857005-23-2023 History of Present illness Narrative* Mr. MY JAMA, is a 62 year old male here for a trach change. Last seen 02/12. He continues to be followed at the [facility]. Continues with Shiley XLT, caps during day. Wound has continued to heal very slowly but is smaller. He comes in today with a new XLT trach for his trach changesince we didn't have one in clinic last month. No other concerns. Overall doing ok. 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 Patient completed adjuvant chemoradiation on 02/06/22. * History: * Dx1: AmK0sN8 left neck (unknown primary) 2018 * Dx2: L4V8aN2 SCCa of the oral cavity 2020 * [...] lymphadenopathy * 09/12: [facility] +S[facility] * 10/14: PET FDG [...] the history, physical exam, discussion and plan. [facility] [place] [address] Work Phone: 1(342) 951-356905-17-2023 Progress note Author Joya Galvez [facility] February 06, 2023 8:54am Note Date/Time February 06, 2023 8:54a m [facility] [address] [place] [address] Progress Note - Wound Care 02/06/23 0851 MR#: [id number] Acct: [id number] Name: MY JAMA Rep #:[id number] : 1960 62 From: Joya Galvez NP BMET-C PCP: YARI Pardo Status:REG RCR Location: History [...] of first interosseous muscles. Coordination / Balance: kptlcb-wy-tyqp test normal Speech: speech abnormal Gait (Neuro): [...] Recorded Date Recorded By Document 01/23/23 08:17 [facility] [id number] 01/23/23 08:26 [facility] Document 01/30/23 08:27 [facility] [id number] 01/30/23 08:33 BM Document 02/06/23 08:18 [facility] [id number] 02/06/23 08:23 [facility] 01/23/23 01/30/23 02/06/23 08:17 08:27 08:18 - Today's Visit Information Type of service Follow-up Visit Follow-up Visit 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 (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 ) ) ) Arrival Mode Ambulatory Ambulatory [...] Recorded Date Recorded By Document 01/23/23 08:17 [facility] [id number] 01/23/23 08:26 [facility] Document 01/30/23 08:27 [facility] [id number] 01/30/23 08:33 [facility] Document 02/06/23 08:18 [facility] [id number] 02/06/23 08:23 [facility] 01/23/23 01/30/23 02/06/23 08:17 08:27 08:18 [...] (1-33%) Medium (34-66%) Small (1-33%) -Granulation Quality [place] Red -Slough/Fibrin Yes Yes Yes -Necrosis Amt [...] Date Recorded By Document 01/23/23 08:48 MW [id number] 01/23/23 08:50 MW Document 01/30/23 08:46 MW [id number] 01/30/23 08:47 MW Document 02/06/23 08:39 PL [id number] 02/06/23 08:40 PL 01/23/23 01/30/23 02/06/23 08:48 [...] Recorded Date Recorded By Document 01/23/23 08:56 [facility] [id number] 01/23/23 08:57 BM Document 01/30/23 08:47 MW [id number] 01/30/23 08:48 MW Document 02/06/23 08:41 RB [id number] 02/06/23 08:41 RB 01/23/23 01/30/23 02/06/23 08:56 [...] 0854 <Electronically signed by Joya Galvez NP BMET-C> Cosigner Signature (if applicable): CC: ~ Signed [facility] Work Phone: 1(350) 396-674605-10-2023 Progress note Author Joya Galvez [facility] January 30, 2023 9:56am Note Date/Time January 30, 2023 9:56a m [facility] [address] [facility] [place] [address] Progress Note - Wound Care 01/30/23 0953 MR#: [id number] Acct: [id number] Name: MY JAMA Rep #:[id number] : 1960 62 From: Joya Galvez NP BMET-C PCP: YARI Pardo Status:REG RCR Location: History [...] of first interosseous muscles. Coordination / Balance: siibuq-ct-tftc test normal Speech: speech abnormal Gait (Neuro): [...] Recorded Date Recorded By Document 01/23/23 08:17 [facility] [id number] 01/23/23 08:26 [facility] Document 01/30/23 08:27 [facility] [id number] 01/30/23 08:33 [facility] 01/23/23 01/30/23 08:17 08:27 - Today's Visit Information Type of service Follow-up Visit 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 ) ) Arrival Mode Ambulatory Ambulatory Transfer [...] Recorded Date Recorded By Document 01/23/23 08:17 [facility] [id number] 01/23/23 08:26 BMF Document 01/30/23 08:27 [facility] [id number] 01/30/23 08:33 BMF 01/23/23 01/30/23 08:17 08:27 [...] Amt Small (1-33%) Medium (34-66%) -Granulation Quality [place] -Slough/Fibrin Yes Yes -Necrosis Amt Large (67-100%) [...] Date Recorded By Document 01/23/23 08:48 MW [id number] 01/23/23 08:50 MW Document 01/30/23 08:46 MW [id number] 01/30/23 08:47 MW 01/23/23 01/30/23 08:48 08:46 [...] Recorded Date Recorded By Document 01/23/23 08:56 [facility] [id number] 01/23/23 08:57 [facility] Document 01/30/23 08:47 MW [id number] 01/30/23 08:48 MW 01/23/23 01/30/23 08:56 08:47 [...] procedure 01/30/23 0956 <Electronically signed by Joya Glavez NP BMET-C> Cosigner Signature (if applicable): CC: ~ Signed [facility] Work Phone: 1(604) 997-471805-03-2023 Progress note Author Joya Galvez [facility] January 23, 2023 9:45am Note Date/Time January 23, 2023 9:45am [facility] [address] [place] [address] Progress Note - Wound Care 01/23/2342 MR#: [id number] Acct: [id number] Name: MY JAMA Rep #:[id number] : 1960 62 From: Joya Galvez NP BMET-C PCP: YARI Pardo Status:REG RCR Location: History [...] of first interosseous muscles. Coordination / Balance: hhvyxy-zr-cybf test normal Speech: speech abnormal Gait (Neuro): [...] Recorded Date Recorded By Document 01/23/23 08:17 [facility] [id number] 01/23/23 08:26 [facility] 01/23/23 08:17 - Today's Visit Information Type of 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 ) Arrival Mode Ambulatory Transfer Assistance None [...] Recorded Date Recorded By Document 01/23/23 08:17 [facility] [id number] 01/23/23 08:26 [facility] 01/23/23 08:17 Wound Center Nurse 1 [...] Attached -Granulation Amt Small (1-33%) -Granulation Quality [place] -Slough/Fibrin Yes -Necrosis Amt Large (67-100%) -Necrotic [...] Date Recorded By Document 01/23/23 08:48 MW [id number] 01/23/23 08:50 MW 01/23/23 08:48 Wound Center [...] Recorded Date Recorded By Document 01/23/23 08:56 [facility] [id number] 01/23/23 08:57 [facility] 01/23/23 08:56 Wound Care Center Nurse [...] 0945 <Electronically signed by Joya Galvez NP BMET-C> Cosigner Signature (if applicable): CC: ~ Signed [facility] Work Phone: 1(963) 410-368604-26-2023 Progress note Author Joya Galvez [facility] January 16, 2023 10:57am Note Date/Time January 16, 2023 10: 43am [facility] [address] [place] [address] Progress Note - Wound Care 01/16/23 1040 MR#: [id number] Acct: [id number] Name: MY JAMA Rep #:[id number] : 1960 62 From: Joya Galvez NP BMET-C PCP: YARI Pardo Status:REG RCR Location: History [...] of first interosseous muscles. Coordination / Balance: oofzvt-qw-eleb test normal Speech: speech abnormal Gait (Neuro): [...] Date Recorded By Document 12/26/22 08:31 PL [id number] 12/26/22 08:39 PL Document 01/02/23 08:29 JF [id number] 01/02/23 08:33 JF Document 01/09/23 08:38 RB [id number] 01/09/23 08:47 RB Document 01/16/23 08:32 RB [id number] 01/16/23 08:34 RB 12/26/22 01/02/23 01/09/23 08:31 08:29 08:38 WC - Today's Visit Information Type of service Follow-up Visit Follow-up Visit 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 (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 ) ) ) Arrival Mode Ambulatory Ambulatory [...] Visit Information Type of 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 ) Arrival Mode Ambulatory Transfer Assistance None [...] Date Recorded By Document 12/26/22 08:31 PL [id number] 12/26/22 08:39 PL Document 01/02/23 08:29 JF [id number] 01/02/23 08:33 JF Document 01/09/23 08:38 RB [id number] 01/09/23 08:47 RB Document 01/16/23 08:32 RB [id number] 01/16/23 08:34 RB 12/26/22 01/02/23 01/09/23 08:31 [...] (34-66%) Medium (34-66%) Medium (34-66%) -Granulation Quality [place] -Slough/Fibrin Yes Yes Yes -Necrosis Amt Medium [...] Attached -Granulation Amt Medium (34-66%) -Granulation Quality [place] -Slough/Fibrin Yes -Necrosis Amt Medium (34-66%) -Necrotic [...] Date Recorded By Document 12/26/22 08:43 MW [id number] 12/26/22 08:45 MW Document 01/02/23 08:47 MW [id number] 01/02/23 08:50 MW Document 01/09/23 08:59 MW [id number] 01/09/23 09:01 MW Document 01/16/23 08:37 MW [id number] 01/16/23 08:40 MW 12/26/22 01/02/23 01/09/23 08:43 [...] Date Recorded By Document 12/26/22 08:49 MW [id number] 12/26/22 08:49 MW Document 01/02/23 08:51 MW [id number] 01/02/23 08:51 MW Document 01/09/23 09:07 MW [id number] 01/09/23 09:08 MW Document 01/16/23 08:40 MW [id number] 01/16/23 08:41 MW 12/26/22 01/02/23 01/09/23 08:49 [...] 1057 <Electronically signed by Joya Galvez NP BMET-C> Cosigner Signature (if applicable): CC: ~ Signed [facility] Work Phone: 1(483) 494-751304-19-2023 Progress note Author Joya Galvez [facility] January 09, 2023 9:35am Note Date/Time January 09, 2023 9:3 5am [facility] [address] [place] [address] Progress Note - Wound Care 01/09/23 0932 MR#: [id number] Acct: [id number] Name: MY JAMA Rep #:[id number] : 1960 62 From: Joya Galvez NP, [...] of first interosseous muscles. Coordination / Balance: usdrqq-ma-ayzz test normal Speech: speech abnormal Gait (Neuro): [...] Date Recorded By Document 12/26/22 08:31 PL [id number] 12/26/22 08:39 PL Document 01/02/23 08:29 JF [id number] 01/02/23 08:33 JF Document 01/09/23 08:38 RB [id number] 01/09/23 08:47 RB 12/26/22 01/02/23 01/09/23 08:31 08:29 08:38 - Today's Visit Information Type of service Follow-up Visit Follow-up Visit 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 (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 ) ) ) Arrival Mode Ambulatory Ambulatory [...] Date Recorded By Document 12/26/22 08:31 PL [id number] 12/26/22 08:39 PL Document 01/02/23 08:29 JF [id number] 01/02/23 08:33 JF Document 01/09/23 08:38 RB [id number] 01/09/23 08:47 RB 12/26/22 01/02/23 01/09/23 08:31 [...] (34-66%) Medium (34-66%) Medium (34-66%) -Granulation Quality Claypool Claypool Claypool -Slough/Fibrin Yes Yes Yes -Necrosis Amt Medium [...] Date Recorded By Document 12/26/22 08:43 MW [id number] 12/26/22 08:45 MW Document 01/02/23 08:47 MW [id number] 01/02/23 08:50 MW Document 01/09/23 08:59 MW [id number] 01/09/23 09:01 MW 12/26/22 01/02/23 01/09/23 08:43 [...] Date Recorded By Document 12/26/22 08:49 MW [id number] 12/26/22 08:49 MW Document 01/02/23 08:51 MW [id number] 01/02/23 08:51 MW Document 01/09/23 09:07 MW [id number] 01/09/23 09:08 MW 12/26/22 01/02/23 01/09/23 08:49 [...] at the time of the procedure 01/09/23 0913 <Electronically signed by Joya Galvez NP BMET-C> Cosigner Signature (if applicable): CC: ~ Signed [facility] Work Phone: 1([phone]) 452-701404-12-2023 Progress note Author Joya Galvez [facility] January 02, 2023 12:07pm Note Date/Time January 02, 2023 12: 07pm [facility] [address] [place] [address] Progress Note - Wound Care 01/02/23 1205 MR#: [id number] Acct: [id number] Name: MY JAMA Rep #:[id number] : 1960 62 From: Joya Galvez NP BMET-C PCP: YARI Pardo Status:REG RCR Location: History [...] of first interosseous muscles. Coordination / Balance: srtkwr-ah-zgtf test normal Speech: speech abnormal Gait (Neuro): [...] Date Recorded By Document 12/26/22 08:31 PL [id number] 12/26/22 08:39 PL Document 01/02/23 08:29 JF [id number] 01/02/23 08:33 JF 12/26/22 01/02/23 08:31 08:29 - Today's Visit Information Type of service Follow-up Visit 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 ) ) Arrival Mode Ambulatory Ambulatory Transfer [...] Date Recorded By Document 12/26/22 08:31 PL [id number] 12/26/22 08:39 PL Document 01/02/23 08:29 JF [id number] 01/02/23 08:33 JF 12/26/22 01/02/23 08:31 08:29 [...] Amt Medium (34-66%) Medium (34-66%) -Granulation Quality Claypool Claypool -Slough/Fibrin Yes Yes -Necrosis Amt Medium (34-66%) [...] Gel Gel Lower Limb Edema Present NA - Nurse 2 - General Ulcer CM Notes Start: 12/26/22 08:31 Freq: Status: Active Protocol: Activity Type Activity Date Activity User E-sign Co-sign Detail Recorded Client Recorded Date Recorded By Document 12/26/22 08:43 MW [id number] 12/26/22 08:45 MW Document 01/02/23 08:47 MW [id number] 01/02/23 08:50 MW 12/26/22 01/02/23 08:43 08:47 [...] Date Recorded By Document 12/26/22 08:49 MW [id number] 12/26/22 08:49 MW Document 01/02/23 08:51 MW [id number] 01/02/23 08:51 MW 12/26/22 01/02/23 08:49 08:51 [...] at the time of the procedure 01/02/23 1201 <Electronically signed by Joya Galvez NP BMET-C> Cosigner Signature (if applicable): CC: ~ Signed [facility] Work Phone: 1(115) 916-148004-05-2023 Progress note Author Joya Galvez [facility] December 26, 2022 8:50am Note Date/Time December 26, 2022 8:50 am [facility] [address] [place] [address] Progress Note - Wound Care 12/26/22 0847 MR#: [id number] Acct: [id number] Name: MY JAMA Rep #:[id number] : 1960 62 From: Joya Galvez NP BMET-C PCP: ERWIN PardoC Status:REG RCR Location: History [...] of first interosseous muscles. Coordination / Balance: eemcrc-da-btmc test normal Speech: speech abnormal Gait (Neuro): [...] Date Recorded By Document 12/26/22 08:31 PL [id number] 12/26/22 08:39 PL 12/26/22 08:31 - Today's Visit Information Type of 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 ) Arrival Mode Ambulatory Transfer Assistance None [...] Date Recorded By Document 12/26/22 08:31 PL [id number] 12/26/22 08:39 PL 12/26/22 08:31 Wound Center Nurse 1 #1 Chin -Combined with other wound No -Current Size (cm) - Length 2.0 -Current Size (cm) - Width 3.0 -Current Size (cm) - Depth 0.2 -Total Square Cm 6.00 -Photo Taken No -Epithelialization Medium 34-66% -Exudate Amt Medium -Exudate Type Serosanguineous -Granulation Amt Medium (34-66%) -Granulation Quality Claypool -Slough/Fibrin Yes -Necrosis Amt Medium (34-66%) -Necrotic [...] Date Recorded By Document 12/26/22 08:43 MW [id number] 12/26/22 08:45 MW 12/26/22 08:43 Wound Center [...] 0850 <Electronically signed by Joya Galvez NP BMET-C> Cosigner Signature (if applicable): CC: ~ Signed [facility] Work Phone: 1(420) 711-241103-22-2023 Progress note Author Joya Galvez [facility] December 12, 2022 11:57am Note Date/Time December 12, 2022 11: 57am [facility] [address] [place] [address] Progress Note - Wound Care 12/12/22 1155 MR#: [id number] Acct: [id number] Name: MY JAMA Rep #:[id number] : 1960 62 From: Joya Galvez NP BMET-C PCP: YARI Pardo Status:REG RCR Location: History [...] of first interosseous muscles. Coordination / Balance: klpane-by-yklh test normal Speech: speech abnormal Gait (Neuro): [...] Recorded Date Recorded By Document 11/28/22 08:23 [facility] [id number] 11/28/22 08:25 [facility] Document 12/05/22 08:22 [facility] [id number] 12/05/22 08:27 [facility] Document 12/12/22 08:52 AK [id number] 12/12/22 08:55 AK 11/28/22 12/05/22 12/12/22 08:23 08:22 08:52 - Today's Visit Information Type of service Follow-up Visit Follow-up Visit 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 (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 ) ) ) Arrival Mode Ambulatory Ambulatory [...] Recorded Date Recorded By Document 11/28/22 08:23 [facility] [id number] 11/28/22 08:25 [facility] Document 12/05/22 08:22 [facility] [id number] 12/05/22 08:27 BM Document 12/12/22 08:52 AK [id number] 12/12/22 08:55 AK 11/28/22 12/05/22 12/12/22 08:23 [...] Date Recorded By Document 11/28/22 11:23 PL [id number] 11/28/22 11:23 PL Document 12/05/22 08:45 MW [id number] 12/05/22 08:48 MW Document 12/12/22 08:56 MW [id number] 12/12/22 09:00 MW 11/28/22 12/05/22 12/12/22 11:23 [...] Recorded Date Recorded By Document 11/28/22 08:49 [facility] [id number] 11/28/22 08:49 [facility] Document 12/05/22 08:53 [facility] [id number] 12/05/22 08:54 BM Document 12/12/22 09:20 AK [id number] 12/12/22 09:21 AK 03/08/23 03/15/23 03/22/23 08:49 08:53 09:20 Wound Care Center Nurse [...] at the time of the procedure 12/12/22 9019 <Electronically signed by Joya Galvez NP BMET-C> Cosigner Signature (if applicable): CC: ~ Signed [facility] Work Phone: 1(843) 105-616903-15-2023 Progress note Author Joya Galvez [facility] December 05, 2022 10:21am Note Date/Time December 05, 2022 10: 21am [facility] [address] [place] [address] Progress Note - Wound Care 12/05/22 1018 MR#: [id number] Acct: [id number] Name: MY JAMA Rep #:[id number] : 1960 62 From: Joya Galvez NP BMET-C PCP: YARI Pardo Status:REG RCR Location: History [...] of first interosseous muscles. Coordination / Balance: fpcsht-fe-upmz test normal Speech: speech abnormal Gait (Neuro): [...] Recorded Date Recorded By Document 11/28/22 08:23 [facility] [id number] 11/28/22 08:25 [facility] Document 12/05/22 08:22 [facility] [id number] 12/05/22 08:27 [facility] 11/28/22 12/05/22 08:23 08:22 - Today's Visit Information Type of service Follow-up Visit 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 ) ) Arrival Mode Ambulatory Ambulatory Transfer [...] Recorded Date Recorded By Document 11/28/22 08:23 [facility] [id number] 11/28/22 08:25 [facility] Document 12/05/22 08:22 [facility] [id number] 12/05/22 08:27 [facility] 11/28/22 12/05/22 08:23 08:22 Wound Center [...] Date Recorded By Document 11/28/22 11:23 PL [id number] 11/28/22 11:23 PL Document 12/05/22 08:45 MW [id number] 12/05/22 08:48 MW 11/28/22 12/05/22 11:23 08:45 [...] Recorded Date Recorded By Document 11/28/22 08:49 [facility] [id number] 11/28/22 08:49 [facility] Document 12/05/22 08:53 [facility] [id number] 12/05/22 08:54 [facility] 11/28/22 12/05/22 08:49 08:53 Wound Care [...] 1021 <Electronically signed by Joya Galvez NP BMET-C> Cosigner Signature (if applicable): CC: ~ Signed [facility] Work Phone: [phone]) [phone] Progress note Author Joya Galvez [facility] November 28, 2022 10:58am Note Date/Time November 28, 2022 10:5 8am [facility] [address] [place] [address] Progress Note - Wound Care 11/28/22 1051 MR#: [id number] Acct: [id number] Name: MY JAMA Rep #:[id number] : 1960 62 From: Joya Galvez NP BMET-C PCP: YARI Pardo Status:REG RCR Location: History [...] of first interosseous muscles. Coordination / Balance: yfqjej-nv-sjdx test normal Speech: speech abnormal Gait (Neuro): [...] Recorded Date Recorded By Document 11/28/22 08:23 [facility] [id number] 11/28/22 08:25 [facility] 11/28/22 08:23 - Today's Visit Information Type of 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 ) Arrival Mode Ambulatory Transfer Assistance None [...] Recorded Date Recorded By Document 11/28/22 08:23 [facility] [id number] 11/28/22 08:25 [facility] 11/28/22 08:23 Wound Center Nurse 1 [...] Recorded Date Recorded By Document 11/28/22 08:49 [facility] [id number] 11/28/22 08:49 [facility] 11/28/22 08:49 Wound Care Center Nurse [...] Cosigner Signature (if applicable): CC: ~ Signed [facility] Work Phone: 1(194) 169-497802-22-2023 Progress note Author Joya Galvez [facility] November 14, 2022 12:06pm Note Date/Time November 14, 2022 12:06pm [facility] [address] [place] [address] Progress Note - Wound Care 11/14/22 1202 MR#: [id number] Acct: [id number] Name: MY JAMA Rep #:[id number] : 1960 62 From: Joya Galvez NP, [...] Date Recorded By Document 10/24/22 08:23 [facility] [id number] 10/24/22 08:25 AK Document 11/07/22 08:27 AK Desktop 11/07/22 08:28 AK Document 11/14/22 08:59 NV [id number] 11/14/22 09:00 AK 10/24/22 11/07/22 11/14/22 08:23 08:27 08:59 - Today's Visit Information Type of service Follow-up Visit Follow-up Visit 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 (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 ) ) ) Arrival Mode Ambulatory Ambulatory [...] Date Recorded By Document 10/24/22 08:23 [facility] [id number] 10/24/22 08:25 AK Document 11/07/22 08:27 AK Desktop 11/07/22 08:28 AK Document 11/14/22 08:59 AK [id number] 11/14/22 09:00 AK 10/24/22 11/07/22 11/14/22 08:23 [...] (1-33%) Small (1-33%) Small (1-33%) -Granulation Quality Clay[place] Claypool Claypool -Slough/Fibrin Yes Yes Yes -Necrosis Amt Large [...] Date Recorded By Document 10/24/22 09:02 MW [id number] 10/24/22 09:04 MW Document 11/07/22 08:44 MW [id number] 11/07/22 08:46 MW Document 11/14/22 08:52 MW [id number] 11/14/22 08:53 MW 10/24/22 11/07/22 11/14/22 09:02 [...] Recorded Date Recorded By Document 10/24/22 10:43 [facility] [id number] 10/24/22 10:44 [facility] Document 11/07/22 08:52 ML [id number] 11/07/22 08:55 ML Document 11/14/22 09:05 [facility] [id number] 11/14/22 09:05 BM 10/24/22 11/07/22 11/14/22 10:43 08:52 09:05 Wound [...] Cosigner Signature (if applicable): CC: ~ Signed [facility] Work Phone: 1(426) 274-388102-15-2023 Progress note Author Joya Galvez [facility] November 07, 2022 9:38am Note Date/Time November 07, 2022 9:22am [facility] [address] [facility] [place] [address] Progress Note - Wound Care 11/07/22 0920 MR#: [id number] Acct: [id number] Name: MY JAMA Rep #:[id number] : 1960 62 From: Joya Galvez NP, [...] Date Recorded By Document 10/24/22 08:23 AK [id number] 10/24/22 08:25 AK Document 11/07/22 08:27 AK Desktop 11/07/22 08:28 AK 10/24/22 11/07/22 08:23 08:27 - Today's Visit Information Type of service Follow-up Visit 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 ) ) Arrival Mode Ambulatory Ambulatory Patient [...] Date Recorded By Document 10/24/22 08:23 [facility] [id number] 10/24/22 08:25 AK Document 11/07/22 08:27 AK [...] Amt Small (1-33%) Small (1-33%) -Granulation Quality [place] Claypool -Slough/Fibrin Yes Yes -Necrosis Amt Large (67-100%) [...] Date Recorded By Document 10/24/22 09:02 MW [id number] 10/24/22 09:04 MW Document 11/07/22 08:44 MW [id number] 11/07/22 08:46 MW 10/24/22 11/07/22 09:02 08:44 [...] Recorded Date Recorded By Document 10/24/22 10:43 [facility] [id number] 10/24/22 10:44 [facility] Document 11/07/22 08:52 ML [id number] 11/07/22 08:55 ML 10/24/22 11/07/22 10:43 08:52 [...] 11/07/22 0938 <Electronically signed by Joya Galvez NP, NP-C> Cosigner Signature (if applicable): CC: ~ Signed [facility] Work Phone: 1(553) 408-945302-01-2023 Progress note Author Joya Galvez [facility] October 24, 2022 11:45am Note Date/Time October 24, 2022 1 1:09am [facility] [address] [place] [address] Progress Note - Wound Care 10/24/22 1106 MR#: [id number] Acct: [id number] Name: MY JAMA Rep #:[id number] : 1960 62 From: Joya Galvez NP, NP-C PCP: YARI Pardo Status:REG RCR Location: ADDENDUM [...] neck cancer: 10/24/22 1145<Electronically signed by Joya HOODC> Cosigner Signature (if applicable): cc: ~* Signed [...] Recorded Date Recorded By Document 10/24/22 08:23 NV [id number] 10/24/22 08:25 NV 10/24/22 08:23 - Today's Visit Information Type of 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 ) Arrival Mode Ambulatory Patient Identification Verified [...] Date Recorded By Document 10/24/22 08:23 AK [id number] 10/24/22 08:25 AK 10/24/22 08:23 Wound Center [...] Attached -Granulation Amt Small (1-33%) -Granulation Quality Claypool -Slough/Fibrin Yes -Necrosis Amt Large (67-100%) -Necrotic [...] Cleansing No -Anesthetic Used 4% Lidocaine Solution WC - Nurse 2 - General Ulcer CM Notes Start: 10/24/22 08:18 Freq: Status: Active Protocol: Activity Type Activity Date Activity User E-sign Co-sign Detail Recorded Client Recorded Date Recorded By Document 10/24/22 09:02 MW [id number] 10/24/22 09:04 MW 10/24/22 09:02 Wound Center [...] Recorded Date Recorded By Document 10/24/22 10:43 [facility] [id number] 10/24/22 10:44 [facility] 10/24/22 10:43 Wound Care Center Nurse [...] 1109 <Electronically signed by Joya Galvez NP BMET-C> Cosigner Signature (if applicable): CC: ~ Signed [facility] Work Phone: 1([phone]) 369-435501-18-2023 Progress note Author Joya Galvez [facility] October 10, 2022 10:10am Note Date/Time October 10, 2022 1 0:10am [facility] [address] [place] [address] Progress Note - Wound Care 10/10/22 1006 MR#: [id number] Acct: [id number] Name: MY JAMA Rep #:[id number] : 1960 62 From: Joya Galvez NP BMET-C PCP: ERWIN PardoC Status:REG RCR Location: History [...] Recorded Date Recorded By Document 10/03/22 08:22 [facility] [id number] 10/03/22 08:25 BM Document 10/10/22 08:29 [facility] [id number] 10/10/22 08:32 BMF 10/03/22 10/10/22 08:22 08:29 - Today's Visit Information Type of service Follow-up Visit 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 ) ) Arrival Mode Ambulatory Ambulatory Transfer [...] Recorded Date Recorded By Document 10/03/22 08:22 [facility] [id number] 10/03/22 08:25 BM Document 10/10/22 08:29 [facility] [id number] 10/10/22 08:32 [facility] 10/03/22 10/10/22 08:22 08:29 Wound Center Nurse [...] Date Recorded By Document 10/03/22 08:32 MW [id number] 10/03/22 08:37 MW Document 10/10/22 08:39 MW [id number] 10/10/22 08:42 MW 10/03/22 10/10/22 08:32 08:39 [...] Recorded Date Recorded By Document 10/03/22 08:43 [facility] [id number] 10/03/22 08:43 [facility] Document 10/10/22 08:47 NV [id number] 10/10/22 08:48 AK 10/03/22 10/10/22 08:43 08:47 [...] 1010 <Electronically signed by Joya Galvez NP BMET-C> Cosigner Signature (if applicable): CC: ~ Signed [facility] Work Phone: 1(153) [phone] Progress note Author Joya Galvez [facility] October 03, 2022 10:35am Note Date/Time October 03, 2022 1 0:35am [facility] [address] [place] [address] Progress Note - Wound Care 10/03/22 1032 MR#: [id number] Acct: [id number] Name: MY JAMA Rep #:[id number] : 1960 62 From: Joya Galvez NP BMET-C PCP: Kamryn Gonzalez NP-C Status:REG RCR Location: History of [...] Recorded Date Recorded By Document 10/03/22 08:22 [facility] [id number] 10/03/22 08:25 [facility] 10/03/22 08:22 - Today's Visit Information Type of 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 ) Arrival Mode Ambulatory Transfer Assistance None [...] Recorded Date Recorded By Document 10/03/22 08:22 [facility] [id number] 10/03/22 08:25 BMF 10/03/22 08:22 Wound Center [...] Date Recorded By Document 10/03/22 08:32 MW [id number] 10/03/22 08:37 MW 10/03/22 08:32 Wound Center [...] Recorded Date Recorded By Document 10/03/22 08:43 [facility] [id number] 10/03/22 08:43 [facility] 10/03/22 08:43 Wound Care Nurse 3 [...] 1035 <Electronically signed by Joya Galvez NP BMET-C> Cosigner Signature (if applicable): CC: ~ Signed [facility] Work Phone: [phone]) [phone] History of Present illness Narrative* Mr. MY JAMA, is a 61 year old male here for a followup regarding his open anterior chin wound. Last seen 04/16/22. He has been referred to the wound clinic at [facility]. He goes once a week and they deride the wound. He has his trach capped today. He is currently on Levaquin for 14 days. He hasbeen seen by ASSOCIATE SALES MANAGER and is advancing his diet. He is [...] script. 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 Patient completed adjuvant chemoradiation on 02/06/22. * History: * Dx1: WgE4nK0 left neck (unknown primary) 2018 * Dx2: H3Q0rF7 SCCa of the oral cavity 2020 * [...] lymphadenopathy * 09/12: [facility] * 10/14: PET FDG [...] the history, physical exam, discussion and plan. [facility] Work Phone: 1(481) 315-356907-25-2022 History of Present illness Narrative* Mr. MY JAMA, is a 61 year old male here for a followup regarding his open anterior chin wound. Last seen 04/16/22. He has been referred to the wound clinic at [facility]. He goes once a week and they deride the wound. He has his trach capped today. He is currently on Levaquin for 14 days. He hasbeen seen by ASSOCIATE SALES MANAGER and is advancing his diet. He is [...] script. * He has a history of M9I0vY2 oral cavity SCCa with chin involvement s/p triple, trach, PEG, composite resection, excision of skin and soft tissue, segmental mandibulectomy, right neck dissection, leftneck exploration for vessels, reconstruction with left ALT and left fibular free flap on 11/07/21. Patient completed adjuvant chemoradiation on 02/06/22. * History: * Dx1: RrY7yY3 left neck (unknown primary) 2018 * Dx2: L4N5zF6 SCCa of the oral cavity 2020 * [...] lymphadenopathy * 09/12: [facility] * 10/14: PET FDG [...] the history, physical exam, discussion and plan. [facility] Work Phone: 1(281) 918-202007-11-2022 History of Present illness Narrative* Mr. MY [...] been referred to the wound clinic at [facility]. He is seeing the wound care clinic next week. He has his trach capped today. He had an MBS w/ speech. * He has a history of D7P6uQ5 oral cavity SCCa with chin involvement s/p triple, trach, PEG, composite resection, excision of skin and soft tissue, segmental mandibulectomy, right neck dissection, leftneck exploration for vessels, reconstruction with left ALT and left fibular free flap on 11/07/21. Patient completed adjuvant chemoradiation on 02/06/22. * History: * Dx1: YyR9aU1 left neck (unknown primary) 2018 * Dx2: J2O5vC7 SCCa of the oral cavity 2020 * [...] lymphadenopathy * 09/12: [facility] * 10/14: PET FDG [...] the history, physical exam, discussion and plan. [facility] Work Phone: 1(903) [phone] History of Present illness Narrative* Mr. MY [...] Recommendation is for * History: * Dx1: ZdH8bY4 left neck (unknown primary) 2018 * Dx2: [...] lymphadenopathy * 09/12: [facility] * 10/14: PET FDG [...] the history, physical exam, discussion and plan. [facility] Work Phone: 1(142) [phone] History of Present illness Narrative* Mr. MY [...] reports he has had the trach capped / for the past few days. [facility]. He is currently on Bactrim for leg cellulitis. He has been seen by Dr. Sellers for adjuvant radiation. * History: * Dx1: [id number] left neck (unknown primary) 2018 * Dx2: [...] lymphadenopathy * 09/12: Oral cavity biopsy at [facility] * 10/14: PET FDG [...] the history, physical exam, discussion and plan. [facility]lf[facility] Work Phone: 1(319) 370-906002-15-2022 History of Present illness Narrative* Mr. MY JAMA, is a 61 year old male here for a post op visit s/p triple, trach, PEG, composite resection, excision of skin and soft tissue, segmental mandibulectomy, right neck dissection, leftneck exploration for vessels, reconstruction with left ALT and left fibular free flap on 11/07/21. Path + 6.5cm [facility], 3/21 lymph nodes +. Patient was taken back [...] his speaking valve. * History: * Dx1: [id number] left neck (unknown primary) 2018 * Dx2: [id number] [facility] of the oral cavity 2020 * [...] lymphadenopathy * 09/12: [facility] * 10/14: PET FDG [...] the history, physical exam, discussion and plan. IK-Zgnjauzwfdjils-Sqgbu [place] [address] Work Phone: 1(488) 635-438202-15-2022 History of Present illness Narrative* Mr. MY JAMA, is a 61 year old male here for a third post op visit for his T4W6hB4 oral cavity SCCa with chin involvement s/p [...] ENT complaints today. * History: * Dx1: UdN5gF2 left neck (unknown primary) 2018 * Dx2: L8X0iV7 SCCa of the oral cavity 2020 * [...] lymphadenopathy * 09/12: [facility] at [facility] * 10/14: PET FDG [...] the history, physical exam, discussion and plan. BP-Sfslvpiblrqzve-Amyuz Work Phone: 1(117) 168-348102-15-2022 History of Present illness Narrative* Mr. MY JAMA, is a 61 year old male here for a third post op visit for his N9S7nN1 oral cavity SCCa with chin involvement s/p [...] chemoradiation therapy daily. * History: * Dx1: DdO1jX8 left neck (unknown primary) 2018 * Dx2: P3Q6zZ3 SCCa of the oral cavity 2020 * [...] lymphadenopathy * [facility]12: [facility] * 10/14: PET FDG avid oral cavity [...] the history, physical exam, discussion and plan. KJ-Fmfasdyquwxqcx-Sglyp [place] [address] Work Phone: 1(164) 217-429202-15-2022 History of Present illness Narrative* Mr. MY JAMA, is a 61 year old male here for a cancer follow up. He has a history of K5A5kZ0 oral cavity SCCa with chin involvement s/p [...] this. He is currently getting chemoradiation in [place]. He has 3 more weeks left. * History: * Dx1: KoG9nF9 left neck (unknown primary) 2018 * Dx2: Z2C5vV8 SCCa of the oral cavity 2020 * [...] lymphadenopathy * 09/12: [facility] at [facility] * 10/14: PET FDG [...] the history, physical exam, discussion and plan. OT-Exccgbpkzlpvew-Yqqxc Work Phone: 1(658) 498-582902-15-2022 History of Present illness Narrative* Mr. MY JAMA, is a 61 year old male here for a cancer follow up. He has a history of M2X5eJ7 oral cavity SCCa with chin involvement s/p [...] this. He is currently getting chemoradiation in [place]. He has 3 more weeks left with 2 more chemo treatments. He is tolerating daily therapy. He is coughing up more blood clots recently. Daughters report he is always cold and sits by an electric heater all day. They are out of saline bullets for his trach * History: * Dx1: LyD8zY0 left neck (unknown primary) 2018 * Dx2: Z2R1bD6 SCCa of the oral cavity 2020 * [...] lymphadenopathy * 09/12: [facility] * 10/14: PET FDG [...] the history, physical exam, discussion and plan. XE-Mrsnvugjdkdzoo-Zwrxo [place] [address] Work Phone: 1([phone]) [phone] History of Present illness Narrative* Mr. MY JAMA, is a 61 year old male here for a cancer follow up. He has a history of W2G8hE3 oral cavity SCCa with chin involvement s/p [...] capping the trach * History: * Dx1: AnC9gM0 left neck (unknown primary) 2018 * Dx2: L9A8uO0 SCCa of the oral cavity 2020 * [...] lymphadenopathy * 09/12: [facility] * 10/14: PET FDG [...] the history, physical exam, discussion and plan. UP-Cbclhurzuxdryk-Cscdc Work Phone: 1(453) 284-423302-15-2022 History of Present illness Narrative* Mr. MY JAMA, is a 61 year old male here for a cancer follow up. He has a history of X2Y8yN4 oral cavity SCCa with chin involvement s/p [...] capping the trach * History: * Dx1: WrL0xB2 left neck (unknown primary) 2018 * Dx2: B0W8oV1 SCCa of the oral cavity 2020 * [...] lymphadenopathy * 09/12: [facility] * 10/14: PET FDG [...] the history, physical exam, discussion and plan. YI-Wwrexgduvvxqxe-Bqyal [place] [address] Work Phone: 1(946) 938-550002-01-2022 History of Present illness NarrativeTristen ortiz is a patient of one of [...] face. There is no obvious of metastatic disease.TR-Hedmtweegysncq-Kygnipbu Work Phone: 1([phone]) 529-474501-11-2022 NoteHNO ID: [id number] Author: Laurita Mabry MD Service: ? Author Type: Physician Type: Progress Notes Filed: 10/03/2021 2:06 PM Note Text: I called the patient on the phone number on his [employer] account and went to voicemail. I left voicemail for him to call me back and I left him my cell phone number. Laurita Mabry, [facility]01-10-2022 NoteHNO ID: [id number] Author: Jesika Pichardo MD Service: ? Author [...] referring physician via mail or electronic medical record.[facility]01-06-2022 NoteHNO ID: [id number] Author: Laurita Mabry MD Service: ? Author [...] cauterized using silver nitrat (more content not included)...[facility]09-01-2019 History of Present illness Narrative* Mr. [...] to ETD. Patient seen [facility] at [facility] and had PE tubes placed. Patient was noted to have a lesion in the oral cavity near dental extraction site. Punch biopsy was obtained and path + SCCa. Patient seen by his radiation oncologist, Dr. Sellers. Patient had a PET scan on 10/11/21. I do have access to the report, but not theimages. * Patient with a history of GoV0nL8 left neck (unknown primary) head and neck [...] the history, physical exam, discussion and plan. ZQ-Azpbiglokjcmib-Zrpai Work Phone: 1([phone]) 131-911609-01-2019 History of Present illness Narrative* Mr. MY [...] to ETD. Patient seen by [facility] at [facility] and had PE tubes placed. Patient was noted to have a lesion in the oral cavity near dental extraction site. Punch biopsy was obtained and path + SCCa. Patient seen by his radiation oncologist, Dr. Sellers. Patient had a PET scan on 10/11/21. I do have access to the report, but not theimages. * Patient with a history of NdG3qW3 left neck (unknown primary) head and neck [...] the history, physical exam, discussion and plan. SK-Hphhqokzyvliyh-Bjfcq [place] [address] Work Phone: 1([phone]) 616-792209-01-2019 History of Present illness Narrative* Mr. MY [...] to ETD. Patient seen by ENT at [facility] and had PE tubes placed. Patient was noted to have a lesion in the oral cavity near dental extraction site. Punch biopsy was obtained and path + SCCa. Patient seen by his radiation oncologist, Dr. Sellers. Patient had a PET scan on 10/11/21. I do have access to the report, but not theimages. * Patient with a history of MlD4kV0 left neck (unknown primary) head and neck [...] the history, physical exam, discussion and plan. GM-Vaibcqseniegwv-Ayckvtx Work Phone: [phone] 310-652009-01-2019 History of Present illness Narrative* Mr. MY JAMA, is a 61 year old male here today for a newly diagnosed SCCa of the oral cavity.Patient last seen by me 05/2019. At that time he was seen in follow up of his XpO1zS0 unknown primary left neck for which he had received chemoradiation therapy. Patient has been lost to follow up. Patient seen by his dentist in August 2021 and had a tooth removed. Patient was thought to have early ORN following the dental extraction. Patient was started on HBO treatments, but could not toleratethem due to ETD. Patient seen by [facility] at [facility] and had PE tubes placed. [...] overlying his chin. * History: * Dx1: KwA9gS3 left neck (unknown primary) 2018 * Dx2: [...] lymphadenopathy * 09/12: [facility] * 10/14: PET FDG avid oral cavity mass w/bone involvement SUV12, no lymphadenopathy or distant metastasis * SH: * Tob: 1ppd/35 years. currently down to 2-3 cigs/day * ETOH: beer. 12pk/week - but just cut down to a few a day * Here with family * By signing my name below, I, Kuldeep Barden, attest that this documentation has been prepared under the direction and in the presence of Dr. Rachel Brooks MD. * All medical record entries made by the Kuldeep were at my direction and personally dictated by me, Dr. Rachel Brooks. I have reviewed the chart and agree that the record accurately reflects my personal performance of the history, physical exam, discussion and plan. WD-Lhuaabkekhxgly-Jwmlh [place] [address] Work Phone: Chief complaint Narrative - ReportedConsultation for some help in the management of an oral cavity ocszkkGM-Hwwsqbonjlofut-Yydvatbq Work Phone: chief complaint+Reason for visit Narrative* [...] metastasis present Anemia Cancer related pain Dehydration [facility] Work Phone: Chief complaint+Reason for visit Narrative* [...] metastasis present Anemia Cancer related pain Dehydration [facility] Work Phone: Chief complaint+Reason for visit Narrative* [...] metastasis present Anemia Cancer related pain Dehydration [facility] Work Phone: Chief complaint+Reason for visit Narrative* [...] metastasis present Anemia Cancer related pain Dehydration [facility] Work Phone: Chief complaint+Reason for visit Narrative* [...] carcinoma Floor of mouth squamous cell carcinoma [facility] Work Phone: Chief complaint+Reason for visit Narrative* [...] Nonhealing surgical wound Head and neck cancer [facility] Work Phone: Chief complaint+Reason for visit Narrative* [...] Soft tissue radionecrosis Head and neck cancer [facility] Work Phone: Consult note Author Roz browning [facility] Note Date/Time April 15, 2025 8:02 am [facility] Medical Records Department [address] [place] [address] Pre-Anesthesia Evaluation 04/15/25 0800 MR#: [id number] Acct: [id number] Name: MY JAMA Rep #:[id number] : 1960 64 From: Roz dow MD PCP: Sadie Santiago, BMET-C Status:REG S DC Y Race: C Location: [place] [address] ASA Classification* ASA Classification ASA Classification: 3 [...] Procedure(s): EGD Anesthesia History Anesthesia History - embroidery 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: Anesthesia History - embroidery 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 Hx Hospitalization No 04/12/25 11:13 Any Problems [...] take am of surgery PONV PONV - embroidery 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: PONV - embroidery 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 Female No 04/12/25 11:13 HX of Motion [...] 04/15/25 07:40 Respiratory Assessment Respiratory Assessment - embroidery 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: Respiratory Tract Infection Hx - embroidery 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 Hx Respiratory Tract Infection No 04/12/25 11:13 STOP Sleep Apnea STOP Sleep Apnea - embroidery 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: STOP Sleep Apnea - embroidery 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 Hx Hypertension Yes: CONTROLLED WITH MED 04/12/25 [...] Tobacco Use History Tobacco Use History - embroidery 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: Tobacco Use History - embroidery 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 Tobacco Use Smoking Status Former smoker 04/12/25 11:13 Hx Tobacco Use No 04/12/25 11:13 Years Smoking Packs Smoked per Day Smoking Cessation Date was Yes - quit smoking within 15 04/12/25 11:13 within the last 15 years years Hx Smoking Cessation Date 07/24/21 04/12/25 11:13 Hx Smoking Cessation Counseling Hematologic Medial History Hematologic Hx - embroidery 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: Hematologic Medical Hx - transcription specialist Hx of Blood Transfusion No 04/12/25 11:13 [...] confused, unrespo /Reproduction History /Reproductive History - embroidery 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: /Reproductive Hx- embroidery 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 Hx Now Gestational Age (in weeks): EDC: [...] signed by Roz chambers MD> Date _ Roz Collins MD Cosigner Signature: Date CC: ~ Signed [facility] Work Phone: Consult note Author Romulo Lockett [facility] Note Date/Time April 15, 2025 9:02 am [facility] Medical Records Department [address] [place] [address] Anesthesia Postop Eval I 04/15/25900 MR#: [id number] Acct: [id number] Name: MY JAMA Rep #:[id number] : 1960 64 From: Romulo Lockett PCP: Sadie Santiago BMET-C Status:REG S DC Y Race: C Location: [place] [address] Anesthesia: Postop Eval I Current Vital Signs [...] by Romulo Lockett > Date _ Romulo Riosignallison Signature: Date CC: ~ Signed [facility] Work Phone: Evaluation note* Constitutional: Awake/alert/oriented x3, [...] nerves grossly intactPsychological: Appropriate mood and behavior [facility] Diagnosis Onset Date Resolution Status Delayed surgical wound healing acute History of head and neck cancer acute 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 Head and neck cancer chronic Lung nodules chronic Regional lymph node metastasis present chronic Anemia resolved Cancer related pain resolved Dehydration resolved [facility] Work Phone: Evaluation note* Diagnosis Onset Date Resolution Status 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 Head and neck cancer chronic Lung nodules chronic 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 Head and neck cancer chronic Lung nodules chronic Regional lymph node metastasis present chronic Anemia resolved Cancer related pain resolved Dehydration resolved [facility] Work Phone: Evaluation note* Diagnosis [...] resolved Cancer related pain resolved Dehydration resolved [facility] Work Phone: Evaluation note* Diagnosis [...] resolved Cancer related pain resolved Dehydration resolved [facility] Work Phone: Evaluation note* Diagnosis [...] resolved Cancer related pain resolved Dehydration resolved [facility] Work Phone: Evaluation note* Diagnosis [...] 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 [facility] Work Phone: Evaluation note* Diagnosis [...] 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 [facility] Work Phone: Evaluation note* Diagnosis [...] and neck cancer chronic Lung nodules chronic [facility] Work Phone: Evaluation note* Diagnosis [...] wound healing acute Nonhealing surgical wound ac mcgrath Head and neck cancer chronic [facility] Work Phone: Evaluation note* Diagnosis [...] wound healing acute Nonhealing surgical wound ac mcgrath Head and neck cancer chronic Delayed surgical wound healing acute Nonhealing surgical wound ac mcgrath 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 [facility] Work Phone: Evaluation note* Diagnosis [...] wound healing acute Nonhealing surgical wound ac mcgrath Head and neck cancer chronic Delayed surgical wound healing acute Nonhealing surgical wound ac mcgrath 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 [facility] Work Phone: Evaluation note* Diagnosis Onset Date Resolution Status Delayed surgical wound healing acute Nonhealing surgical wound ac mcgrath 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 Delayed surgical wound healing acute Nonhealing surgical wound ac mcgrath 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 Delayed surgical wound healing acute Nonhealing surgical wound ac mcgrath 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 Delayed surgical wound healing acute Nonhealing surgical wound ac mcgrath 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 [facility] Work Phone: Evaluation note* Diagnosis Onset Date Resolution Status 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 Delayed surgical wound healing acute Nonhealing surgical wound ac mcgrath 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 Delayed surgical wound healing acute Nonhealing surgical wound ac mcgrath 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 Delayed surgical wound healing acute Nonhealing surgical wound ac mcgrath 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 Delayed surgical wound healing acute Nonhealing surgical wound ac mcgrath 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 [facility] Work Phone: Evaluation note* Diagnosis Onset Date Resolution Status Delayed surgical wound healing acute Nonhealing surgical wound ac mcgrath 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 Delayed surgical wound healing acute Nonhealing surgical wound ac mcgrath 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 Delayed surgical wound healing acute Nonhealing surgical wound ac mcgrath 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 Lung nodules chronic Head and neck cancer chronic Lung nodules chronic Anemia resolved Cancer related pain resolved Dehydration resolved Delayed surgical wound healing acute Nonhealing surgical wound ac mcgrath 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 [facility] Work Phone: Evaluation note* Diagnosis Onset Date Resolution Status Delayed surgical wound healing acute Nonhealing surgical wound ac mcgrath 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 Delayed surgical wound healing acute Nonhealing surgical wound ac mcgrath 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 Lung nodules chronic Head and neck cancer chronic Lung nodules chronic Anemia resolved Cancer related pain resolved Dehydration resolved Delayed surgical wound healing acute Nonhealing surgical wound ac mcgrath 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 Delayed surgical wound healing acute Nonhealing surgical wound ac mcgrath 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 [facility] Work Phone: Evaluation note* Diagnosis Onset Date Resolution Status Delayed surgical wound healing acute Nonhealing surgical wound ac mcgrath 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 Delayed surgical wound healing acute Nonhealing surgical wound ac mcgrath 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 Lung nodules chronic Head and neck cancer chronic Lung nodules chronic Anemia resolved Cancer related pain resolved Dehydration resolved Delayed surgical wound healing acute Nonhealing surgical wound ac mcgrath 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 Delayed surgical wound healing acute Nonhealing surgical wound ac mcgrath 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 Delayed surgical wound healing acute Nonhealing surgical wound ac mcgrath 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 [facility] Work Phone: Evaluation note* Diagnosis Onset Date Resolution Status 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 Delayed surgical wound healing acute Nonhealing surgical wound ac mcgrath 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 Lung nodules chronic Head and neck cancer chronic Lung nodules chronic Anemia resolved Cancer related pain resolved Dehydration resolved Delayed surgical wound healing acute Nonhealing surgical wound ac mcgrath 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 Delayed surgical wound healing acute Nonhealing surgical wound ac mcgrath 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 Delayed surgical wound healing acute Nonhealing surgical wound ac mcgrath 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 [facility] Work Phone: Evaluation note* Diagnosis Onset Date Resolution Status Delayed surgical wound healing acute Nonhealing surgical wound ac mcgrath 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 Delayed surgical wound healing acute Nonhealing surgical wound ac mcgrath 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 Delayed surgical wound healing acute Nonhealing surgical wound ac mcgrath 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 Delayed surgical wound healing acute Nonhealing surgical wound ac mcgrath 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 [facility] Work Phone: Evaluation note* Diagnosis Onset Date Resolution Status Delayed surgical wound healing acute Nonhealing surgical wound ac mcgrath 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 Delayed surgical wound healing acute Nonhealing surgical wound ac mcgrath 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 Delayed surgical wound healing acute Nonhealing surgical wound ac mcgrath 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 Delayed surgical wound healing acute Nonhealing surgical wound ac mcgrath 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 Delayed surgical wound healing acute Nonhealing surgical wound ac mcgrath 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 [facility] Work Phone: Evaluation note* Diagnosis Onset Date Resolution Status Delayed surgical wound healing acute Nonhealing surgical wound ac mcgrath 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 Lung nodules chronic [facility] Work Phone: Evaluation note* Diagnosis Acquired hypothyroidism- Primary Unspecified hypothyroidism Oropharyngeal dysphagia Dysphagia, oropharyngeal phase 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) Malignant neoplasm of mouth, unspecified site documented in this encounter [facility] Work Phone: Evaluation note* Diagnosis Onset Date Resolution Status Head and neck cancer chronic Lung nodules chronic 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 Esophageal dysphagia [facility] Work Phone: Evaluation note* Diagnosis Onset Date Resolution Status 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 Esophageal dysphagia [facility] Work Phone: Evaluation note* Diagnosis Oropharyngeal dysphagia- Primary Dysphagia, oropharyngeal phase Sensorineural hearing loss (SNHL) of both ears Cancer of oral cavity (Multi) Malignant neoplasm of mouth, unspecified site 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) Adverse effect of radiation therapy, subsequent encounter Sensorineural hearing loss (SNHL) of both ears- Primary documented in this encounter [facility] Work Phone: Evaluation note* Diagnosis Acquired [...] hypothyroidism Unspecified hypothyroidism documented in this encounter [facility] Work Phone: Evaluation note* Diagnosis Acquired [...] (Multi) Tracheostomy status documented in this encounter [facility] Work Phone: Evaluation note* Diagnosis Acquired [...] neck, subsequent encounter documented in this encounter [facility] Work Phone: Evaluation note* Diagnosis Acquired [...] diseases classified elsewhere documented in this encounter [facility] Work Phone: Evaluation note* Diagnosis Acquired [...] encounter Open wound of neck, subsequent encounter Adverse effect of radiation, sequela Other disorders of arteries, arterioles and capillaries in diseases classified elsewhere documented in this encounter [facility] Work Phone: Evaluation note* Diagnosis Acquired [...] encounter Open wound of neck, subsequent encounter 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) documented in this encounter [facility] Work Phone: History and physical note Author Elliott Akhtar [facility] September 03, 2023 2:00pm Note Date/Time September 03, 2023 2:00pm [facility] Medical Records Department [address] [place] [address] History & Physical Exam 09/03/23 1400 MR#: [id number] Acct: [id number] Name: MY JAMA Rep #:[id number] : [id number] From: Elliott Akhtar DO PCP: ERWIN PardoC Status:REG [facility] Location: [place] [address] History and Physical Date of Admission: 09/03/23 MY JAMA, is a 63 M who presents to the office today for WCC 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 Underwent radiation with concurrent carboplatin for head/neck cancer. At follow up it was noted he has dysphagia. ? Modified Barium 7.. moderate oropharyngeal dysphagia, mild esophageal dysphasia. ? [...] Affect: normal affect Quality Reporting Tobacco Screening ([facility] 138) Smoking Status: Former smoker Assessment and [...] CC: YARI Gonzalez; Elliott Akhtar DO~ Signed [facility] Work Phone: History and physical note Author Elliott Akhtar [facility] Note Date/Time April 15, 2025 7:41 am [facility] Medical Records Department [address] [place] [id number] History & Physical Exam 04/15/25 0739 MR#: [id number] Acct: [id number] Name: MY JAMA Rep #:[id number] : 1960 64 From: Elliott Akhtar DO PCP: YARI Santillan Status:REG S DC Location: [place] [address] HPI - General General Date of Admission: 04/15/25 Date of Service: 04/15/25 Chief Complaint: Esophageal dysphagia HPI Narrative MY JAMA, is a 64 M who presents for an upper endoscopy regarding severe esophageal dysphagia secondary to radiation. 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 Underwent radiation with concurrent carboplatin for head/neck cancer. At follow up it was noted he has dysphagia. ? Modified Barium 04.13.22 moderate oropharyngeal dysphagia, mild esophageal dysphasia. ? Modified Barium 06.15. moderate-severe oropharyngeal phase dysphagia, puree texture. ? [...] Barium Swallow 10..24 Severe oropharyngeal dysphagia OV 11.24 pt reports continued difficulty swallowing, denies other GI symptomsof concern at this time. EGD 10.21.24 Benign-appearing esophageal stenosis. Dilated. Small hiatal hernia. No gross lesions in the duodenal bulb. No specimens collected. Modified Barium Swallow 3.25 severe oropharyngeal dysphagia OV 5.25 pt reports that he is feeling well overall and denies GI symptoms of concern, but would like to schedule his next EGD. [facility] Medical History Wears hearing [...] proximal esophagus with dilation up to 42 Kenyan savory dilator. He did well up until a month ago where he had a worsening swallowing. He will undergo repeat upper endoscopy with Botox injection and dilation of the esophagus. 04/15/25 [id number] <Electronically signed by Elliott Akhtar DO> Cosigner Signature (if applicable): CC: YARI Santiago; Elliott Akhtar DO~ Signed [facility] Work Phone: History of Present illness Narrative* Mr. MY JAMA, is a 62 year old male here for a followup regarding his open anterior neck wound. Last seen 06/14. He is currently seeing the wound clinic at [facility]. He still has his Shiley XLT in. He wears his cap on all day. He only uncaps the trach at night time when he lays flat. He has nothad his trach changed. 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 Patient completed adjuvant chemoradiation on 02/06/22. * History: * Dx1: GsQ6qR9 left neck (unknown primary) 2018 * Dx2: M0K2bK3 SCCa of the oral cavity 2020 * [...] lymphadenopathy * 09/12: [facility] * 10/14: PET FDG [...] the history, physical exam, discussion and plan. ZL-Fslaynxecxdryh-Sleik [facility] Work Phone: History of Present illness Narrative* Mr. MY JAMA, is a 62 year old male here for a trach change. Last seen 06/14. He continues to be followed at the [facility] wound clinic. Continues with Shiley XLT, caps during day. Wound has continued to heal very slowly but is smaller. * He has a history of Y9W8zV8 oral cavity SCCa with chin involvement s/p triple, trach, PEG, composite resection, excision of skin and soft tissue, segmental mandibulectomy, right neck dissection, leftneck exploration for vessels, reconstruction with left ALT and left fibular free flap on 11/07/21. Patient completed adjuvant chemoradiation on 02/06/22. * History: * Dx1: KwQ1yH4 left neck (unknown primary) 2018 * Dx2: W0O3iZ4 SCCa of the oral cavity 2020 * [...] lymphadenopathy * 09[facility]12: [facility] * 10/14: PET FDG avid oral cavity [...] the history, physical exam, discussion and plan. FQ-Ygmdpzzfixcivm-Nctsndecm Work Phone: History of Present illness Narrative* Mr. MY JAMA, is a 62 year old male here for a trach change. Last seen 06/14. He continues to be followed at the [facility] wound clinic. Continues with Amber SCOTT, caps during day. Wound has continued to heal very slowly but is smaller. * He has a history of V8Z0rH3 oral cavity SCCa with chin involvement s/p triple, trach, PEG, composite resection, excision of skin and soft tissue, segmental mandibulectomy, right neck dissection, leftneck exploration for vessels, reconstruction with left ALT and left fibular free flap on 11/07/21. Patient completed adjuvant chemoradiation on 02/06/22. * History: * Dx1: QmP6zJ8 left neck (unknown primary) 2018 * Dx2: O4P4kH7 SCCa of the oral cavity 2020 * [...] lymphadenopathy * 09/12: [facility] * 10/14: PET FDG [...] the history, physical exam, discussion and plan. CE-Uznxefecbvykod-Qlhrqtyto Work Phone: History of Present illness NarrativeThis [...] as other doctors in his home in [place].He has had routine follow-ups on his cancer with no recurrence to date. He has had progressive hearing loss that may have been influenced by chemotherapy. He has completed all of his therapy at this point and is now on cancer surveillance exams. He has had no ear pain or drainage. Unfortunately there are no old hearing test to review. WP-Pihnxrjrmnapyh-Geokj Work Phone: Hospital Discharge instructions* Activity:activity as [...] Therapy Orders:Occupational Therapy Orders: Eval and Treat ([facility]), dailyPhysical Therapy Orders: Eval and Treat ([facility]), dailySpeech Therapy Orders: Eval and Treat ([facility]), 1-3 times/week, NO ORAL LIQUIDS OR FOODS UNTIL CLEARED BY SURGICAL ATTENDING * Provider Follow Up:Physician To Follow at Skilled/Rehab: Attending Physician at Skilled/Rehab * Follow Up Appointment 1:Physician/Dept/Service: Dr. Rachel Machuca for Referral: POVScheduled Date/Time: 29-Nov-2021 13:15Location: [facility] 1st Floor Desk BPhone Number:[phone] with questionsComments: Please arrive 10-15 minutes early, [...] (6.0) cuffless Shiley. Suction Catheter Size/Type 14 lao. Date Trach Inserted/Changed: 11/07/21;11/12/21. * PEG Tube [...] * Skilled Facility Instructions:FOR PATIENTS GOING TO CARE HOME FACILITY: Please make sure thispatient has all suctioning, dressing, trach care and tube feeding supplies in their home prior to [facility]. [facility] Name Dates Details Patient Instructions Indication:B12 nutritional deficiency Start:02-Dec-2020 Instruction Type:Provider Instructions for Treatment How to Access Health Informa tion Online using Patient Portal and 3rd [employer] Apps Indication:Smoker Start:02-Dec-2020 Instruction Type:Patient Education [...] tion Online using Patient Portal and 3rd [employer] Apps Indication:Dry mouth Start:13-Mar-2021 Instruction Type:Patient Education Patient Instructions Indication:B12 nutritional deficiency Start:02-Dec-2020 Instruction Type:Provider Instructions for Treatment How to Access Health Informa tion Online using Patient Portal and 3rd [employer] Apps Indication:Smoker Start:02-Dec-2020 Instruction Type:Patient Education [...] tion Online using Patient Portal and 3rd [employer] Apps Indication:Dry mouth Start:13-Mar-2021 Instruction Type:Patient Education Patient Instructions Indication:B12 nutritional deficiency Start:02-Dec-2020 Instruction Type:Provider Instructions for Treatment How to Access Health Informa tion Online using Patient Portal and [employer] Apps Indication:Smoker Start:02-Dec-2020 Instruction Type:Patient Education Patient [...] Informa tion Online using Patient Portal and [employer] Apps Indication:Dry mouth Start:13-Mar-2021 Instruction Type:Patient Education Patient Instructions Indication:B12 nutritional deficiency Start:02-Dec-2020 Instruction Type:Provider Instructions for Treatment How to Access Health Informa tion Online using Patient Portal and [employer] Apps Indication:Smoker Start:02-Dec-2020 Instruction Type:Patient Education [...] tion Online using Patient Portal and 3rd [employer] Apps Indication:Smoker Start:15-Aug-2021 Instruction Type:Patient Education Patient Instructions Indication:BMI 20.0-20.9, adult Start:26-Jul-2021 Instruction Type:Provider Instructions for Treatment How to Access Health Informa tion Online using Patient Portal and 3rd [employer] Apps Indication:BMI 20.0-20.9, adult Start:26-Jul-2021 Instruction Type:Patient Education Patient Instructions Indication:Dry mouth Start:13-Mar-2021 Instruction Type:Provider Instructions for Treatment How to Access Health Informa tion Online using Patient Portal and 3rd [employer] Apps Indication:Dry mouth Start:13-Mar-2021 Instruction Type:Patient Education Patient Instructions Indication:B12 nutritional deficiency Start:02-Dec-2020 Instruction Type:Provider Instructions for Treatment How to Access Health Informa tion Online using Patient Portal and 3rd [employer] Apps Indication:Smoker Start:02-Dec-2020 Instruction Type:Patient Education [...] tion Online using Patient Portal and 3rd [employer] Apps Indication:Smoker Start:15-Aug-2021 Instruction Type:Patient Education Patient Instructions Indication:BMI 20.0-20.9, adult Start:26-Jul-2021 Instruction Type:Provider Instructions for Treatment How to Access Health Informa tion Online using Patient Portal and [employer] Apps Indication:BMI 20.0-20.9, adult Start:26-Jul-2021 Instruction Type:Patient Education Patient Instructions Indication:Dry mouth Start:13-Mar-2021 Instruction Type:Provider Instructions for Treatment How to Access Health Informa tion Online using Patient Portal and 3rd [employer] Apps Indication:Dry mouth Start:13-Mar-2021 Instruction Type:Patient Education Patient Instructions Indication:B12 nutritional deficiency Start:02-Dec-2020 Instruction Type:Provider Instructions for Treatment How to Access Health Informa tion Online using Patient Portal and [employer] Apps Indication:Smoker Start:02-Dec-2020 Instruction Type:Patient Education [...] tion Online using Patient Portal and 3rd [employer] Apps Indication:Hypothyroid Start:15-Dec-2021 Instruction Type:Patient Education Patient Instructions Indication:Smoker Start:15-Aug-2021 Instruction Type:Provider Instructions for Treatment How to Access Health Informa tion Online using Patient Portal and 3rd [employer] Apps Indication:Smoker Start:15-Aug-2021 Instruction Type:Patient Education Patient Instructions Indication:BMI 20.0-20.9, adult Start:26-Jul-2021 Instruction Type:Provider Instructions for Treatment How to Access Health Informa tion Online using Patient Portal and 3rd [employer] Apps Indication:BMI 20.0-20.9, adult Start:26-Jul-2021 Instruction Type:Patient Education Patient Instructions Indication:Dry mouth Start:13-Mar-2021 Instruction Type:Provider Instructions for Treatment How to Access Health Informa tion Online using Patient Portal and 3rd [employer] Apps Indication:Dry mouth Start:13-Mar-2021 Instruction Type:Patient Education Patient Instructions Indication:B12 nutritional deficiency Start:02-Dec-2020 Instruction Type:Provider Instructions for Treatment How to Access Health Informa tion Online using Patient Portal and 3rd [employer] Apps Indication:Smoker Start:02-Dec-2020 Instruction Type:Patient Education [...] tion Online using Patient Portal and 3rd [employer] Apps Indication:BMI less than 19,adult Start:15-Feb-2022 Instruction Type:Patient Education Patient Instructions Indication:Hypothyroid Start:15-Dec-2021 Instruction Type:Provider Instructions for Treatment How to Access Health Informa tion Online using Patient Portal and 3rd [employer] Apps Indication:Hypothyroid Start:15-Dec-2021 Instruction Type:Patient Education Patient Instructions Indication:Smoker Start:15-Aug-2021 Instruction Type:Provider Instructions for Treatment How to Access Health Informa tion Online using Patient Portal and 3rd [employer] Apps Indication:Smoker Start:15-Aug-2021 Instruction Type:Patient Education Patient Instructions Indication:BMI 20.0-20.9, adult Start:26-Jul-2021 Instruction Type:Provider Instructions for Treatment How to Access Health Informa tion Online using Patient Portal and 3rd [employer] Apps Indication:BMI 20.0-20.9, adult Start:26-Jul-2021 Instruction Type:Patient Education Patient Instructions Indication:Dry mouth Start:13-Mar-2021 Instruction Type:Provider Instructions for Treatment How to Access Health Informa tion Online using Patient Portal and 3rd [employer] Apps Indication:Dry mouth Start:13-Mar-2021 Instruction Type:Patient Education Patient Instructions Indication:B12 nutritional deficiency Start:02-Dec-2020 Instruction Type:Provider Instructions for Treatment How to Access Health Informa tion Online using Patient Portal and 3rd [employer] Apps Indication:Smoker Start:02-Dec-2020 Instruction Type:Patient Education [...] tion Online using Patient Portal and 3rd [employer] Apps Indication:BMI less than 19,adult Start:15-Feb-2022 Instruction Type:Patient Education Patient Instructions Indication:Hypothyroid Start:15-Dec-2021 Instruction Type:Provider Instructions for Treatment How to Access Health Informa tion Online using Patient Portal and 3rd [employer] Apps Indication:Hypothyroid Start:15-Dec-2021 Instruction Type:Patient Education Patient Instructions Indication:Smoker Start:15-Aug-2021 Instruction Type:Provider Instructions for Treatment How to Access Health Informa tion Online using Patient Portal and 3rd [employer] Apps Indication:Smoker Start:15-Aug-2021 Instruction Type:Patient Education Patient Instructions Indication:BMI 20.0-20.9, adult Start:26-Jul-2021 Instruction Type:Provider Instructions for Treatment How to Access Health Informa tion Online using Patient Portal and 3rd [employer] Apps Indication:BMI 20.0-20.9, adult Start:26-Jul-2021 Instruction Type:Patient Education Patient Instructions Indication:Dry mouth Start:13-Mar-2021 Instruction Type:Provider Instructions for Treatment How to Access Health Informa tion Online using Patient Portal and 3rd [employer] Apps Indication:Dry mouth Start:13-Mar-2021 Instruction Type:Patient Education Patient Instructions Indication:B12 nutritional deficiency Start:02-Dec-2020 Instruction Type:Provider Instructions for Treatment How to Access Health Informa tion Online using Patient Portal and 3rd [employer] Apps Indication:Smoker Start:02-Dec-2020 Instruction Type:Patient Education [...] Informa tion Online using Patient Portal and [employer] Apps Indication:BMI less than 19,adult Start:15-Feb-2022 Instruction Type:Patient Education Patient Instructions Indication:Hypothyroid Start:15-Dec-2021 Instruction Type:Provider Instructions for Treatment How to Access Health Informa tion Online using Patient Portal and [employer] Apps Indication:Hypothyroid Start:15-Dec-2021 Instruction Type:Patient Education Patient Instructions Indication:Smoker Start:15-Aug-2021 Instruction Type:Provider Instructions for Treatment How to Access Health Informa tion Online using Patient Portal and 3rd [employer] Apps Indication:Smoker Start:15-Aug-2021 Instruction Type:Patient Education Patient Instructions Indication:BMI 20.0-20.9, adult Start:26-Jul-2021 Instruction Type:Provider Instructions for Treatment How to Access Health Informa tion Online using Patient Portal and 3rd [employer] Apps Indication:BMI 20.0-20.9, adult Start:26-Jul-2021 Instruction Type:Patient Education Patient Instructions Indication:Dry mouth Start:13-Mar-2021 Instruction Type:Provider Instructions for Treatment How to Access Health Informa tion Online using Patient Portal and 3rd [employer] Apps Indication:Dry mouth Start:13-Mar-2021 Instruction Type:Patient Education Patient Instructions Indication:B12 nutritional deficiency Start:02-Dec-2020 Instruction Type:Provider Instructions for Treatment How to Access Health Informa tion Online using Patient Portal and 3rd [employer] Apps Indication:Smoker Start:02-Dec-2020 Instruction Type:Patient Education [...] tion Online using Patient Portal and 3rd [employer] Apps Indication:BMI less than 19,adult Start:15-Feb-2022 Instruction Type:Patient Education Patient Instructions Indication:Hypothyroid Start:15-Dec-2021 Instruction Type:Provider Instructions for Treatment How to Access Health Informa tion Online using Patient Portal and 3rd [employer] Apps Indication:Hypothyroid Start:15-Dec-2021 Instruction Type:Patient Education Patient Instructions Indication:Smoker Start:15-Aug-2021 Instruction Type:Provider Instructions for Treatment How to Access Health Informa tion Online using Patient Portal and 3rd [employer] Apps Indication:Smoker Start:15-Aug-2021 Instruction Type:Patient Education Patient Instructions Indication:BMI 20.0-20.9, adult Start:26-Jul-2021 Instruction Type:Provider Instructions for Treatment How to Access Health Informa tion Online using Patient Portal and 3rd [employer] Apps Indication:BMI 20.0-20.9, adult Start:26-Jul-2021 Instruction Type:Patient Education Patient Instructions Indication:Dry mouth Start:13-Mar-2021 Instruction Type:Provider Instructions for Treatment How to Access Health Informa tion Online using Patient Portal and 3rd [employer] Apps Indication:Dry mouth Start:13-Mar-2021 Instruction Type:Patient Education Patient Instructions Indication:B12 nutritional deficiency Start:02-Dec-2020 Instruction Type:Provider Instructions for Treatment How to Access Health Informa tion Online using Patient Portal and 3rd [employer] Apps Indication:Smoker Start:02-Dec-2020 Instruction Type:Patient Education [...] tion Online using Patient Portal and 3rd [employer] Apps Indication:BMI less than 19,adult Start:15-Feb-2022 Instruction Type:Patient Education Patient Instructions Indication:Hypothyroid Start:15-Dec-2021 Instruction Type:Provider Instructions for Treatment How to Access Health Informa tion Online using Patient Portal and 3rd [employer] Apps Indication:Hypothyroid Start:15-Dec-2021 Instruction Type:Patient Education Patient Instructions Indication:Smoker Start:15-Aug-2021 Instruction Type:Provider Instructions for Treatment How to Access Health Informa tion Online using Patient Portal and 3rd [employer] Apps Indication:Smoker Start:15-Aug-2021 Instruction Type:Patient Education Patient Instructions Indication:BMI 20.0-20.9, adult Start:26-Jul-2021 Instruction Type:Provider Instructions for Treatment How to Access Health Informa tion Online using Patient Portal and 3rd [employer] Apps Indication:BMI 20.0-20.9, adult Start:26-Jul-2021 Instruction Type:Patient Education Patient Instructions Indication:Dry mouth Start:13-Mar-2021 Instruction Type:Provider Instructions for Treatment How to Access Health Informa tion Online using Patient Portal and 3rd [employer] Apps Indication:Dry mouth Start:13-Mar-2021 Instruction Type:Patient Education Patient Instructions Indication:B12 nutritional deficiency Start:02-Dec-2020 Instruction Type:Provider Instructions for Treatment How to Access Health Informa tion Online using Patient Portal and 3rd [employer] Apps Indication:Smoker Start:02-Dec-2020 Instruction Type:Patient Education [...] tion Online using Patient Portal and 3rd [employer] Apps Indication:BMI less than 19,adult Start:15-Feb-2022 Instruction Type:Patient Education Patient Instructions Indication:Hypothyroid Start:15-Dec-2021 Instruction Type:Provider Instructions for Treatment How to Access Health Informa tion Online using Patient Portal and 3rd [employer] Apps Indication:Hypothyroid Start:15-Dec-2021 Instruction Type:Patient Education Patient Instructions Indication:Smoker Start:15-Aug-2021 Instruction Type:Provider Instructions for Treatment How to Access Health Informa tion Online using Patient Portal and 3rd [employer] Apps Indication:Smoker Start:15-Aug-2021 Instruction Type:Patient Education Patient Instructions Indication:BMI 20.0-20.9, adult Start:26-Jul-2021 Instruction Type:Provider Instructions for Treatment How to Access Health Informa tion Online using Patient Portal and 3rd [employer] Apps Indication:BMI 20.0-20.9, adult Start:26-Jul-2021 Instruction Type:Patient Education Patient Instructions Indication:Dry mouth Start:13-Mar-2021 Instruction Type:Provider Instructions for Treatment How to Access Health Informa tion Online using Patient Portal and 3rd [employer] Apps Indication:Dry mouth Start:13-Mar-2021 Instruction Type:Patient Education Patient Instructions Indication:B12 nutritional deficiency Start:02-Dec-2020 Instruction Type:Provider Instructions for Treatment How to Access Health Informa tion Online using Patient Portal and 3rd [employer] Apps Indication:Smoker Start:02-Dec-2020 Instruction Type:Patient Education [...] tion Online using Patient Portal and 3rd [employer] Apps Indication:BMI less than 19,adult Start:15-Feb-2022 Instruction Type:Patient Education Patient Instructions Indication:Hypothyroid Start:15-Dec-2021 Instruction Type:Provider Instructions for Treatment How to Access Health Informa tion Online using Patient Portal and 3rd [employer] Apps Indication:Hypothyroid Start:15-Dec-2021 Instruction Type:Patient Education Patient Instructions Indication:Smoker Start:15-Aug-2021 Instruction Type:Provider Instructions for Treatment How to Access Health Informa tion Online using Patient Portal and 3rd [employer] Apps Indication:Smoker Start:15-Aug-2021 Instruction Type:Patient Education Patient Instructions Indication:BMI 20.0-20.9, adult Start:26-Jul-2021 Instruction Type:Provider Instructions for Treatment How to Access Health Informa tion Online using Patient Portal and 3rd [employer] Apps Indication:BMI 20.0-20.9, adult Start:26-Jul-2021 Instruction Type:Patient Education Patient Instructions Indication:Dry mouth Start:13-Mar-2021 Instruction Type:Provider Instructions for Treatment How to Access Health Informa tion Online using Patient Portal and 3rd [employer] Apps Indication:Dry mouth Start:13-Mar-2021 Instruction Type:Patient Education Patient Instructions Indication:B12 nutritional deficiency Start:02-Dec-2020 Instruction Type:Provider Instructions for Treatment How to Access Health Informa tion Online using Patient Portal and 3rd [employer] Apps Indication:Smoker Start:02-Dec-2020 Instruction Type:Patient Education [...] tion Online using Patient Portal and 3rd [employer] Apps Indication:BMI less than 19,adult Start:15-Feb-2022 Instruction Type:Patient Education Patient Instructions Indication:Hypothyroid Start:15-Dec-2021 Instruction Type:Provider Instructions for Treatment How to Access Health Informa tion Online using Patient Portal and 3rd [employer] Apps Indication:Hypothyroid Start:15-Dec-2021 Instruction Type:Patient Education Patient Instructions Indication:Smoker Start:15-Aug-2021 Instruction Type:Provider Instructions for Treatment How to Access Health Informa tion Online using Patient Portal and [employer] Apps Indication:Smoker Start:15-Aug-2021 Instruction Type:Patient Education Patient Instructions Indication:BMI 20.0-20.9, adult Start:26-Jul-2021 Instruction Type:Provider Instructions for Treatment How to Access Health Informa tion Online using Patient Portal and [employer]rd [employer] Apps Indication:BMI 20.0-20.9, adult Start:26-Jul-2021 Instruction Type:Patient Education Patient Instructions Indication:Dry mouth Start:13-Mar-2021 Instruction Type:Provider Instructions for Treatment How to Access Health Informa tion Online using Patient Portal and [employer]rd [employer] Apps Indication:Dry mouth Start:13-Mar-2021 Instruction Type:Patient Education Patient Instructions Indication:B12 nutritional deficiency Start:02-Dec-2020 Instruction Type:Provider Instructions for Treatment How to Access Health Informa tion Online using Patient Portal and [employer]rd [employer] Apps Indication:Smoker Start:02-Dec-2020 Instruction Type:Patient Education [...] tion Online using Patient Portal and [employer]rd [employer] Apps Indication:BMI less than 19,adult Start:15-Feb-2022 Instruction Type:Patient Education Patient Instructions Indication:Hypothyroid Start:15-Dec-2021 Instruction Type:Provider Instructions for Treatment How to Access Health Informa tion Online using Patient Portal and [employer]rd [employer] Apps Indication:Hypothyroid Start:15-Dec-2021 Instruction Type:Patient Education Patient Instructions Indication:Smoker Start:15-Aug-2021 Instruction Type:Provider Instructions for Treatment How to Access Health Informa tion Online using Patient Portal and [employer]rd [employer] Apps Indication:Smoker Start:15-Aug-2021 Instruction Type:Patient Education Patient Instructions Indication:BMI 20.0-20.9, adult Start:26-Jul-2021 Instruction Type:Provider Instructions for Treatment How to Access Health Informa tion Online using Patient Portal and [employer]rd [employer] Apps Indication:BMI 20.0-20.9, adult Start:26-Jul-2021 Instruction Type:Patient Education Patient Instructions Indication:Dry mouth Start:13-Mar-2021 Instruction Type:Provider Instructions for Treatment How to Access Health Informa tion Online using Patient Portal and [employer]rd [employer] Apps Indication:Dry mouth Start:13-Mar-2021 Instruction Type:Patient Education Patient Instructions Indication:B12 nutritional deficiency Start:02-Dec-2020 Instruction Type:Provider Instructions for Treatment How to Access Health Informa tion Online using Patient Portal and [employer]rd [employer] Apps Indication:Smoker Start:02-Dec-2020 Instruction Type:Patient Education [...] tion Online using Patient Portal and [employer]rd [employer] Apps Indication:BMI less than 19,adult Start:15-Feb-2022 Instruction Type:Patient Education Patient Instructions Indication:Hypothyroid Start:15-Dec-2021 Instruction Type:Provider Instructions for Treatment How to Access Health Informa tion Online using Patient Portal and [employer]rd [employer] Apps Indication:Hypothyroid Start:15-Dec-2021 Instruction Type:Patient Education Patient Instructions Indication:Smoker Start:15-Aug-2021 Instruction Type:Provider Instructions for Treatment How to Access Health Informa tion Online using Patient Portal and [employer]rd [employer] Apps Indication:Smoker Start:15-Aug-2021 Instruction Type:Patient Education Patient Instructions Indication:BMI 20.0-20.9, adult Start:26-Jul-2021 Instruction Type:Provider Instructions for Treatment How to Access Health Informa tion Online using Patient Portal and [employer]rd [employer] Apps Indication:BMI 20.0-20.9, adult Start:26-Jul-2021 Instruction Type:Patient Education Patient Instructions Indication:Dry mouth Start:13-Mar-2021 Instruction Type:Provider Instructions for Treatment How to Access Health Informa tion Online using Patient Portal and [employer]rd [employer] Apps Indication:Dry mouth Start:13-Mar-2021 Instruction Type:Patient Education Patient Instructions Indication:B12 nutritional deficiency Start:02-Dec-2020 Instruction Type:Provider Instructions for Treatment How to Access Health Informa tion Online using Patient Portal and [employer] Apps Indication:Smoker Start:02-Dec-2020 Instruction Type:Patient Education [...] tion Online using Patient Portal and [employer] Apps Indication:BMI less than 19,adult Start:15-Feb-2022 Instruction Type:Patient Education Patient Instructions Indication:Hypothyroid Start:15-Dec-2021 Instruction Type:Provider Instructions for Treatment How to Access Health Informa tion Online using Patient Portal and [employer]rd [employer] Apps Indication:Hypothyroid Start:15-Dec-2021 Instruction Type:Patient Education Patient Instructions Indication:Smoker Start:15-Aug-2021 Instruction Type:Provider Instructions for Treatment How to Access Health Informa tion Online using Patient Portal and [employer]rd [employer] Apps Indication:Smoker Start:15-Aug-2021 Instruction Type:Patient Education Patient Instructions Indication:BMI 20.0-20.9, adult Start:26-Jul-2021 Instruction Type:Provider Instructions for Treatment How to Access Health Informa tion Online using Patient Portal and [employer] Apps Indication:BMI 20.0-20.9, adult Start:26-Jul-2021 Instruction Type:Patient Education Patient Instructions Indication:Dry mouth Start:13-Mar-2021 Instruction Type:Provider Instructions for Treatment How to Access Health Informa tion Online using Patient Portal and [employer]rd [employer] Apps Indication:Dry mouth Start:13-Mar-2021 Instruction Type:Patient Education Patient Instructions Indication:B12 nutritional deficiency Start:02-Dec-2020 Instruction Type:Provider Instructions for Treatment How to Access Health Informa tion Online using Patient Portal and [employer] Apps Indication:Smoker Start:02-Dec-2020 Instruction Type:Patient Education [...] tion Online using Patient Portal and [employer] Apps Indication:BMI less than 19,adult Start:15-Feb-2022 Instruction Type:Patient Education Patient Instructions Indication:Hypothyroid Start:15-Dec-2021 Instruction Type:Provider Instructions for Treatment How to Access Health Informa tion Online using Patient Portal and [employer] Apps Indication:Hypothyroid Start:15-Dec-2021 Instruction Type:Patient Education Patient Instructions Indication:Smoker Start:15-Aug-2021 Instruction Type:Provider Instructions for Treatment How to Access Health Informa tion Online using Patient Portal and [employer] Apps Indication:Smoker Start:15-Aug-2021 Instruction Type:Patient Education Patient Instructions Indication:BMI 20.0-20.9, adult Start:26-Jul-2021 Instruction Type:Provider Instructions for Treatment How to Access Health Informa tion Online using Patient Portal and [employer] Apps Indication:BMI 20.0-20.9, adult Start:26-Jul-2021 Instruction Type:Patient Education Patient Instructions Indication:Dry mouth Start:13-Mar-2021 Instruction Type:Provider Instructions for Treatment How to Access Health Informa tion Online using Patient Portal and [employer] Apps Indication:Dry mouth Start:13-Mar-2021 Instruction Type:Patient Education Patient Instructions Indication:B12 nutritional deficiency Start:02-Dec-2020 Instruction Type:Provider Instructions for Treatment How to Access Health Informa tion Online using Patient Portal and [employer] Apps Indication:Smoker Start:02-Dec-2020 Instruction Type:Patient Education [...] tion Online using Patient Portal and [employer] Apps Indication:BMI less than 19,adult Start:15-Feb-2022 Instruction Type:Patient Education Patient Instructions Indication:Hypothyroid Start:15-Dec-2021 Instruction Type:Provider Instructions for Treatment How to Access Health Informa tion Online using Patient Portal and [employer] Apps Indication:Hypothyroid Start:15-Dec-2021 Instruction Type:Patient Education Patient Instructions Indication:Smoker Start:15-Aug-2021 Instruction Type:Provider Instructions for Treatment How to Access Health Informa tion Online using Patient Portal and [employer] Apps Indication:Smoker Start:15-Aug-2021 Instruction Type:Patient Education Patient Instructions Indication:BMI 20.0-20.9, adult Start:26-Jul-2021 Instruction Type:Provider Instructions for Treatment How to Access Health Informa tion Online using Patient Portal and [employer] Apps Indication:BMI 20.0-20.9, adult Start:26-Jul-2021 Instruction Type:Patient Education Patient Instructions Indication:Dry mouth Start:13-Mar-2021 Instruction Type:Provider Instructions for Treatment How to Access Health Informa tion Online using Patient Portal and [employer] Apps Indication:Dry mouth Start:13-Mar-2021 Instruction Type:Patient Education Patient Instructions Indication:B12 nutritional deficiency Start:02-Dec-2020 Instruction Type:Provider Instructions for Treatment How to Access Health Informa tion Online using Patient Portal and [employer] Apps Indication:Smoker Start:02-Dec-2020 Instruction Type:Patient Education [...] tion Online using Patient Portal and [employer] Apps Indication:BMI less than 19,adult Start:15-Feb-2022 Instruction Type:Patient Education Patient Instructions Indication:Hypothyroid Start:15-Dec-2021 Instruction Type:Provider Instructions for Treatment How to Access Health Informa tion Online using Patient Portal and [employer] Apps Indication:Hypothyroid Start:15-Dec-2021 Instruction Type:Patient Education Patient Instructions Indication:Smoker Start:15-Aug-2021 Instruction Type:Provider Instructions for Treatment How to Access Health Informa tion Online using Patient Portal and [employer] Apps Indication:Smoker Start:15-Aug-2021 Instruction Type:Patient Education Patient Instructions Indication:BMI 20.0-20.9, adult Start:26-Jul-2021 Instruction Type:Provider Instructions for Treatment How to Access Health Informa tion Online using Patient Portal and [employer] Apps Indication:BMI 20.0-20.9, adult Start:26-Jul-2021 Instruction Type:Patient Education Patient Instructions Indication:Dry mouth Start:13-Mar-2021 Instruction Type:Provider Instructions for Treatment How to Access Health Informa tion Online using Patient Portal and [employer] Apps Indication:Dry mouth Start:13-Mar-2021 Instruction Type:Patient Education Patient Instructions Indication:B12 nutritional deficiency Start:02-Dec-2020 Instruction Type:Provider Instructions for Treatment How to Access Health Informa tion Online using Patient Portal and [employer] Apps Indication:Smoker Start:02-Dec-2020 Instruction Type:Patient Education Patient [...] tion Online using Patient Portal and [employer] Apps Indication:BMI less than 19,adult Start:15-Feb-2022 Instruction Type:Patient Education Patient Instructions Indication:Hypothyroid Start:15-Dec-2021 Instruction Type:Provider Instructions for Treatment How to Access Health Informa tion Online using Patient Portal and [employer] Apps Indication:Hypothyroid Start:15-Dec-2021 Instruction Type:Patient Education Patient Instructions Indication:Smoker Start:15-Aug-2021 Instruction Type:Provider Instructions for Treatment How to Access Health Informa tion Online using Patient Portal and [employer] Apps Indication:Smoker Start:15-Aug-2021 Instruction Type:Patient Education Patient Instructions Indication:BMI 20.0-20.9, adult Start:26-Jul-2021 Instruction Type:Provider Instructions for Treatment How to Access Health Informa tion Online using Patient Portal and [employer] Apps Indication:BMI 20.0-20.9, adult Start:26-Jul-2021 Instruction Type:Patient Education Patient Instructions Indication:Dry mouth Start:13-Mar-2021 Instruction Type:Provider Instructions for Treatment How to Access Health Informa tion Online using Patient Portal and [employer] Apps Indication:Dry mouth Start:21-Mike-2021 Instruction Type:Patient Education Patient Instructions Indication:B12 nutritional deficiency Start:02-Dec-2020 Instruction Type:Provider Instructions for Treatment How to Access Health Informa tion Online using Patient Portal and [employer] Apps Indication:Smoker Start:02-Dec-2020 Instruction Type:Patient Education [...] tion Online using Patient Portal and [employer] Apps Indication:Tobacco abuse, in remission Start:16-Jan-2023 Instruction Type:Patient Education Patient Instructions Indication:BMI less than 19,adult Start:15-Feb-2022 Instruction Type:Provider Instructions for Treatment How to Access Health Informa tion Online using Patient Portal and [employer] Apps Indication:BMI less than 19,adult Start:15-Feb-2022 Instruction Type:Patient Education Patient Instructions Indication:Hypothyroid Start:15-Dec-2021 Instruction Type:Provider Instructions for Treatment How to Access Health Informa tion Online using Patient Portal and [employer] Apps Indication:Hypothyroid Start:15-Dec-2021 Instruction Type:Patient Education Patient Instructions Indication:Smoker Start:15-Aug-2021 Instruction Type:Provider Instructions for Treatment How to Access Health Informa tion Online using Patient Portal and [employer] Apps Indication:Smoker Start:15-Aug-2021 Instruction Type:Patient Education Patient Instructions Indication:BMI 20.0-20.9, adult Start:26-Jul-2021 Instruction Type:Provider Instructions for Treatment How to Access Health Informa tion Online using Patient Portal and [employer] Apps Indication:BMI 20.0-20.9, adult Start:26-Jul-2021 Instruction Type:Patient Education Patient Instructions Indication:Dry mouth Start:13-Mar-2021 Instruction Type:Provider Instructions for Treatment How to Access Health Informa tion Online using Patient Portal and [employer] Apps Indication:Dry mouth Start:13-Mar-2021 Instruction Type:Patient Education Patient Instructions Indication:B12 nutritional deficiency Start:02-Dec-2020 Instruction Type:Provider Instructions for Treatment How to Access Health Informa tion Online using Patient Portal and [employer] Apps Indication:Smoker Start:02-Dec-2020 Instruction Type:Patient Education [...] tion Online using Patient Portal and [employer] Apps Indication:Tobacco abuse, in remission Start:16-Jan-2023 Instruction Type:Patient Education Patient Instructions Indication:BMI less than 19,adult Start:15-Feb-2022 Instruction Type:Provider Instructions for Treatment How to Access Health Informa tion Online using Patient Portal and [employer] Apps Indication:BMI less than 19,adult Start:15-Feb-2022 Instruction Type:Patient Education Patient Instructions Indication:Hypothyroid Start:15-Dec-2021 Instruction Type:Provider Instructions for Treatment How to Access Health Informa tion Online using Patient Portal and [employer] Apps Indication:Hypothyroid Start:15-Dec-2021 Instruction Type:Patient Education Patient Instructions Indication:Smoker Start:15-Aug-2021 Instruction Type:Provider Instructions for Treatment How to Access Health Informa tion Online using Patient Portal and [employer] Apps Indication:Smoker Start:15-Aug-2021 Instruction Type:Patient Education Patient Instructions Indication:BMI 20.0-20.9, adult Start:26-Jul-2021 Instruction Type:Provider Instructions for Treatment How to Access Health Informa tion Online using Patient Portal and [employer] Apps Indication:BMI 20.0-20.9, adult Start:26-Jul-2021 Instruction Type:Patient Education Patient Instructions Indication:Dry mouth Start:13-Mar-2021 Instruction Type:Provider Instructions for Treatment How to Access Health Informa tion Online using Patient Portal and [employer] Apps Indication:Dry mouth Start:13-Mar-2021 Instruction Type:Patient Education Patient Instructions Indication:B12 nutritional deficiency Start:02-Dec-2020 Instruction Type:Provider Instructions for Treatment How to Access Health Informa tion Online using Patient Portal and [employer] Apps Indication:Smoker Start:02-Dec-2020 Instruction Type:Patient Education [...] Informa tion Online using Patient Portal and [employer] Apps Indication:Tobacco abuse, in remission Start:16-Jan-2023 Instruction Type:Patient Education Patient Instructions Indication:BMI less than 19,adult Start:15-Feb-2022 Instruction Type:Provider Instructions for Treatment How to Access Health Informa tion Online using Patient Portal and [employer] Apps Indication:BMI less than 19,adult Start:15-Feb-2022 Instruction Type:Patient Education Patient Instructions Indication:Hypothyroid Start:15-Dec-2021 Instruction Type:Provider Instructions for Treatment How to Access Health Informa tion Online using Patient Portal and [employer] Apps Indication:Hypothyroid Start:15-Dec-2021 Instruction Type:Patient Education Patient Instructions Indication:Smoker Start:15-Aug-2021 Instruction Type:Provider Instructions for Treatment How to Access Health Informa tion Online using Patient Portal and [employer] Apps Indication:Smoker Start:15-Aug-2021 Instruction Type:Patient Education Patient Instructions Indication:BMI 20.0-20.9, adult Start:26-Jul-2021 Instruction Type:Provider Instructions for Treatment How to Access Health Informa tion Online using Patient Portal and [employer] Apps Indication:BMI 20.0-20.9, adult Start:26-Jul-2021 Instruction Type:Patient Education Patient Instructions Indication:Dry mouth Start:13-Mar-2021 Instruction Type:Provider Instructions for Treatment How to Access Health Informa tion Online using Patient Portal and [employer] Apps Indication:Dry mouth Start:13-Mar-2021 Instruction Type:Patient Education Patient Instructions Indication:B12 nutritional deficiency Start:02-Dec-2020 Instruction Type:Provider Instructions for Treatment How to Access Health Informa tion Online using Patient Portal and [employer] Apps Indication:Smoker Start:02-Dec-2020 Instruction Type:Patient Education Patient [...] tion Online using Patient Portal and [employer] Apps Indication:Tobacco abuse, in remission Start:16-Jan-2023 Instruction Type:Patient Education Patient Instructions Indication:BMI less than 19,adult Start:15-Feb-2022 Instruction Type:Provider Instructions for Treatment How to Access Health Informa tion Online using Patient Portal and [employer] Apps Indication:BMI less than 19,adult Start:15-Feb-2022 Instruction Type:Patient Education Patient Instructions Indication:Hypothyroid Start:15-Dec-2021 Instruction Type:Provider Instructions for Treatment How to Access Health Informa tion Online using Patient Portal and [employer] Apps Indication:Hypothyroid Start:25-Mar-2022 Instruction Type:Patient Education Patient Instructions Indication:Smoker Start:15-Aug-2021 Instruction Type:Provider Instructions for Treatment How to Access Health Informa tion Online using Patient Portal and [employer] Apps Indication:Smoker Start:15-Aug-2021 Instruction Type:Patient Education Patient Instructions Indication:BMI 20.0-20.9, adult Start:26-Jul-2021 Instruction Type:Provider Instructions for Treatment How to Access Health Informa tion Online using Patient Portal and [employer] Apps Indication:BMI 20.0-20.9, adult Start:26-Jul-2021 Instruction Type:Patient Education Patient Instructions Indication:Dry mouth Start:13-Mar-2021 Instruction Type:Provider Instructions for Treatment How to Access Health Informa tion Online using Patient Portal and [employer] Apps Indication:Dry mouth Start:13-Mar-2021 Instruction Type:Patient Education Patient Instructions Indication:B12 nutritional deficiency Start:02-Dec-2020 Instruction Type:Provider Instructions for Treatment How to Access Health Informa tion Online using Patient Portal and [employer] Apps Indication:Smoker Start:02-Dec-2020 Instruction Type:Patient Education [...] tion Online using Patient Portal and [employer] Apps Indication:Tobacco abuse, in remission Start:16-Jan-2023 Instruction Type:Patient Education Patient Instructions Indication:BMI less than 19,adult Start:15-Feb-2022 Instruction Type:Provider Instructions for Treatment How to Access Health Informa tion Online using Patient Portal and [employer] Apps Indication:BMI less than 19,adult Start:15-Feb-2022 Instruction Type:Patient Education Patient Instructions Indication:Hypothyroid Start:15-Dec-2021 Instruction Type:Provider Instructions for Treatment How to Access Health Informa tion Online using Patient Portal and [employer] Apps Indication:Hypothyroid Start:15-Dec-2021 Instruction Type:Patient Education Patient Instructions Indication:Smoker Start:15-Aug-2021 Instruction Type:Provider Instructions for Treatment How to Access Health Informa tion Online using Patient Portal and [employer] Apps Indication:Smoker Start:15-Aug-2021 Instruction Type:Patient Education Patient Instructions Indication:BMI 20.0-20.9, adult Start:26-Jul-2021 Instruction Type:Provider Instructions for Treatment How to Access Health Informa tion Online using Patient Portal and [employer] Apps Indication:BMI 20.0-20.9, adult Start:26-Jul-2021 Instruction Type:Patient Education Patient Instructions Indication:Dry mouth Start:13-Mar-2021 Instruction Type:Provider Instructions for Treatment How to Access Health Informa tion Online using Patient Portal and [employer] Apps Indication:Dry mouth Start:13-Mar-2021 Instruction Type:Patient Education Patient Instructions Indication:B12 nutritional deficiency Start:02-Dec-2020 Instruction Type:Provider Instructions for Treatment How to Access Health Informa tion Online using Patient Portal and [employer] Apps Indication:Smoker Start:02-Dec-2020 Instruction Type:Patient Education [...] tion Online using Patient Portal and [employer] Apps Indication:Tobacco abuse, in remission Start:16-Jan-2023 Instruction Type:Patient Education Patient Instructions Indication:BMI less than 19,adult Start:15-Feb-2022 Instruction Type:Provider Instructions for Treatment How to Access Health Informa tion Online using Patient Portal and [employer] Apps Indication:BMI less than 19,adult Start:15-Feb-2022 Instruction Type:Patient Education Patient Instructions Indication:Hypothyroid Start:15-Dec-2021 Instruction Type:Provider Instructions for Treatment How to Access Health Informa tion Online using Patient Portal and [employer] Apps Indication:Hypothyroid Start:15-Dec-2021 Instruction Type:Patient Education Patient Instructions Indication:Smoker Start:15-Aug-2021 Instruction Type:Provider Instructions for Treatment How to Access Health Informa tion Online using Patient Portal and [employer] Apps Indication:Smoker Start:15-Aug-2021 Instruction Type:Patient Education Patient Instructions Indication:BMI 20.0-20.9, adult Start:26-Jul-2021 Instruction Type:Provider Instructions for Treatment How to Access Health Informa tion Online using Patient Portal and [employer] Apps Indication:BMI 20.0-20.9, adult Start:26-Jul-2021 Instruction Type:Patient Education Patient Instructions Indication:Dry mouth Start:13-Mar-2021 Instruction Type:Provider Instructions for Treatment How to Access Health Informa tion Online using Patient Portal and [employer] Apps Indication:Dry mouth Start:13-Mar-2021 Instruction Type:Patient Education Patient Instructions Indication:B12 nutritional deficiency Start:02-Dec-2020 Instruction Type:Provider Instructions for Treatment How to Access Health Informa tion Online using Patient Portal and [employer] Apps Indication:Smoker Start:02-Dec-2020 Instruction Type:Patient Education [...] tion Online using Patient Portal and [employer] Apps Indication:BMI 20.0-20.9, adult Start:22-Jul-2023 Instruction Type:Patient Education Patient Instructions Indication:Tobacco abuse, in remission Start:16-Jan-2023 Instruction Type:Provider Instructions for Treatment How to Access Health Informa tion Online using Patient Portal and 3rd [employer] Apps Indication:Tobacco abuse, in remission Start:16-Jan-2023 Instruction Type:Patient Education Patient Instructions Indication:BMI less than 19,adult Start:15-Feb-2022 Instruction Type:Provider Instructions for Treatment How to Access Health Informa tion Online using Patient Portal and 3rd [employer] Apps Indication:BMI less than 19,adult Start:15-Feb-2022 Instruction Type:Patient Education Patient Instructions Indication:Hypothyroid Start:15-Dec-2021 Instruction Type:Provider Instructions for Treatment How to Access Health Informa tion Online using Patient Portal and 3rd [employer] Apps Indication:Hypothyroid Start:15-Dec-2021 Instruction Type:Patient Education Patient Instructions Indication:Smoker Start:15-Aug-2021 Instruction Type:Provider Instructions for Treatment How to Access Health Informa tion Online using Patient Portal and 3rd [employer] Apps Indication:Smoker Start:15-Aug-2021 Instruction Type:Patient Education Patient Instructions Indication:BMI 20.0-20.9, adult Start:26-Jul-2021 Instruction Type:Provider Instructions for Treatment How to Access Health Informa tion Online using Patient Portal and 3rd [employer] Apps Indication:BMI 20.0-20.9, adult Start:26-Jul-2021 Instruction Type:Patient Education Patient Instructions Indication:Dry mouth Start:13-Mar-2021 Instruction Type:Provider Instructions for Treatment How to Access Health Informa tion Online using Patient Portal and 3rd [employer] Apps Indication:Dry mouth Start:13-Mar-2021 Instruction Type:Patient Education Patient Instructions Indication:B12 nutritional deficiency Start:02-Dec-2020 Instruction Type:Provider Instructions for Treatment How to Access Health Informa tion Online using Patient Portal and 3rd [employer] Apps Indication:Smoker Start:02-Dec-2020 Instruction Type:Patient Education [...] (narrative)* Reason for Referral: [facility] (narrative)No reason for referral information availableWOur [facility] Work Phone: Reason for visit Narrative* Imaging (Routine) - Pending Review Specialty Diagnoses / Procedures Referred By Contac t Referred To Contact Cardiology Diagnoses Adverse effect of radiation, sequela Other disorders of arteries, arterioles and capillaries in diseases classified elsewhere Procedures Vascular US [place]id [place] [id number] [address] [place] [address] Phone: tel: fax: Referral ID Status Reason Start Date Expiration Date Visits Requested Visits Authorized [id number] Pending Review Perform Procedure 06/10/2025 06/10/2026 1 1 [facility] Work Phone: reason for visit Narrative* Imaging (Routine) - Authorized Specialty Diagnoses / Procedures Referred By Contac t Referred To Contact Radiology Diagnoses 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) Procedures [place] chest [place] [id number] [address] [place] [address] Phone: tel: fax: Referral ID Status Reason Start Date Expiration Date Visits Requested Visits Authorized [id number] Authorized Perform Procedure 06/10/2025 07/10/2026 1 1 [facility] Work Phone: Reokkz for visit Narrative* Imaging (Routine) - Authorized Specialty Diagnoses / Procedures Referred By Contac t Referred To Contact Radiology Diagnoses 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) Procedures CT soft tissue [place] [id number] [address] [place] [address] Phone: tel: fax: Referral ID Status Reason Start Date Expiration Date Visits Requested Visits Authorized [id number] Authorized Perform Procedure 06/10/2025 07/10/2026 1 1 [facility] Work Phone: Instructions Name Dates Details BMI [...] Informa tion Online using Patient Portal and [employer] Apps Indication:Smoker Start:02-Dec-2020 Instruction Type:Patient Education [...] scans FLOOR OF MOUTH SQUAMOUS CELL CARCINOMA BMET DYSPHAGIA Reason for Visit Head and neck cancer Lung nodules Floor of mouth squamous cell carcinoma Esophageal dysphagia Chief Complaint CANCER 6 month f/u H/N review CT scans FLOOR OF MOUTH SQUAMOUS CELL CARCINOMA BMET DYSPHAGIA MALIGNANT NEOPLASM OF MANDIBLE/RX HERE Reason [...] Date/ Time Advance Directives on File Yes Augus t 2018 1:06pm Advance Directives No December 07, 2 022 2:14pm Living Will Yes December 10, 2021 5:19pm Power of Taxi Driver No December 10 5:19pm Advance Directive Response Recorded Date/ Time Advance Directives on File Yes 2018 1:06pm Advance Directives No December 07, 2 022 2:14pm Living Will No December 15, 2021 12:08pm Power of Taxi Driver No December 15 12:08pm Advance Directive Response Recorded Date/ Time Advance Directives No December 20, 022 10:23am Living Will No December 20, 2021 10:23am Power of Taxi Driver No December 20 10:23am Advance Directive Response Recorded Date/ Time Advance Directives No January 10 11:06am Living Will No January 10, 2022 11:06am Power of Taxi Driver No January 10 11:06am Advance Directive Response Recorded Date/ Time Advance Directives on File Yes January 17, 2022 9:59am Advance Directives No January 17 9:59am Living Will No January 22, 2022 10 :45pm Power of Taxi Driver No January 22, 2022 10:45pm Advance Directive Response Recorded Date/ Time Advance Directives No January 31 9:09am Living Will No January 31, 2022 9 :09am Power of Taxi Driver No January 31, 2022 9:09am Advance Directives on File Yes January 17, 2022 9:59am Advance Directive Response Recorded Date/ Time Advance Directives on File Yes January 17, 2022 9:59am Advance Directives No January 31 9:09am Living Will No January 31, 2022 9 :09am Power of Taxi Driver No January 31, 2022 9:09am Advance Directive Response Recorded Date/ Time Advance Directives on File Yes January 17, 2022 8:59am Advance Directives No January 31 8:09am Living Will No January 31, 2022 8 :09am Power of Taxi Driver No January 31, 2022 8:09am Advance Directive Response Recorded Date/ Time Advance Directives No January 31 8:09am Living Will No January 31, 2022 8 :09am Power of Taxi Driver No January 31, 2022 8:09am Advance Directive Response Recorded Date/ Time Advance Directives No January 31 9:09am Living Will No January 31, 2022 9 :09am Power of Taxi Driver No January 31, 2022 9:09am Advance Directive Response Recorded Date/ Time Name of Medical Power of Taxi Driver DAUGHTER September 02, 2023 9:21am Advance Directives No January 31 8:09am Living Will Yes September 02 023 9:21am Power of Taxi Driver Yes September 02, 2023 9:21am Advance Directive Response Recorded Date/ Time Living Will Yes February 13, 2024 1 0:29am Do you have a Healthcare Power of Taxi Driver? Yes February 13, 2024 10:29am Living Will Yes October 20 12:36pm Do you have a Healthcare Power of Taxi Driver? Yes October 20, 2024 12:36pm Name of Medical Power of Taxi Driver DAUGHTER October 20, 2024 12:36pm Advance Directives No January 31 9:09am Advance Directive Response Recorded Date/ Time Living Will Yes February 13, 2024 1 0:29am Do you have a Healthcare Power of Taxi Driver? Yes February 13, 2024 10:29am Advance Directives No January 31 9:09am Advance Directive Response Recorded Date/ Time Living Will Yes February 13, 2024 1 0:29am Do you have a Healthcare Power of Taxi Driver? Yes February 13, 2024 10:29am Do you have a Healthcare Power of Taxi Driver? 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) Procedures XR chest 2 [place] [address] [address] Department [place] [address] Referral ID Status Reason Start Date Expiration Date Visits Requested Visits Authorized [id number] Authorized Perform Procedure 3 09/01/2024 1 1 [...] section and content) DATE CREATED AUTHOR 12/14/2021 [facility] DATE CREATED AUTHOR AUTHOR'S ORGANIZ ATION 01/17/2023 [facility] DATE CREATED AUTHOR AUTHOR'S ORGANIZ ATION 04/26/2023 [facility] DATE CREATED AUTHOR AUTHOR'S ORGANIZ ATION 04/26/2023 [facility] DATE CREATED AUTHOR AUTHOR'S ORGANIZ ATION 07/05/2025 [facility] DATE CREATED AUTHOR AUTHOR'S ORGANIZ ATION 07/06/2025 [facility] DATE CREATED AUTHOR AUTHOR'S ORGANIZ ATION 07/08/2025 [facility] DATE CREATED AUTHOR AUTHOR'S ORGANIZ ATION 07/10/2025 [facility] Care Teams (unrecognized sec tion and content) Team Status: Active Member Role Status Dates Kamryn Gonzalez BMET, BMET-C Family Provider Active Kamryn Gonzalez BMET, BMET-C Primary Care Provider Active Team Status: Inactive Member Role Status Dates Kamryn Gonzalez BMET, BMET-C Primary Care Provider Active Dr. Santiago Sellers DO Attending Provider Active Team Status: Active Member Role Status Dates Kamryn Gonzalez BMET, BMET-C Primary Care Provider Active Joya Galvez BMET, BMET-C Attending Provider, Other Pro vider Active Team Status: Active Member Role Status Dates Kamryn Gonzalez BMET, BMET-C Primary Care Provider Active Joya Galvez BMET, BMET-C Attending Provi brittany, Referring Provider, Other Provider Active Team Status: Active Member Role Status Dates Kamryn Gonzalez BMET, BMET-C Primary Care Provider Active Dr. Santiago Sellers DO Attending Provider, Referring P rovider Active Team Status: Inactive Member Role Status Dates Kamryn Gonzalez BMET, BMET-C Primary Care Provider Active Dr. Quincy Simpson MD Attending Provider Active Team Status: Inactive Member Role Status Dates Kamryn Gonzalez BMET, BMET-C Primary Care Provider Active Joya Galvez NP, BMET-C Attending Provider, Referring Provider Active Team Status: Inactive Member Role Status Dates Kamryn Gonzalez BMET, BMET-C Primary Care Provider, Referring P rovider Active Dr. Quincy Simpson MD Attending Provider Active Team Status: Active Member Role Status Dates Kamryn Gonzalez BMET, BMET-C Primary Care Provide r, Family Provider, Referring Provider Active Dr. Quincy Simpson MD Attending Provider Active Dr. Santiago Sellers DO Active Marce Maxwell BMET, BMET-C Active Team Status: Inactive Member Role Status Dates Kamryn Gonzalez BMET, BMET-C Primary Care Provider, Referring P rovider Active Dr. Santiago Sellers DO Attending Provider Active Team Status: Inactive Member Role Status Dates Dr. Santiago Sellers DO Attending Provider, Referring P rovider Active Sadie Santiago , BMET-C Primary Care Provider Active Team Status: Active Member Role Status Dates Kamryn Gonzalez BMET, BMET-C Primary Care Provider Active Joya Galvez BMET, BMET-C Attending Provider, Referring Provider Active Team Status: Inactive Member Role Status Dates Kamryn Gonzalez BMET, BMET-C Primary Care Provider Active Dr. Quincy Simpson MD Attending Provider, Referrin g Provider Active Dust Box Tender Relationship Specialty Start Date End Date Kamryn Gonzalez E, MAIL PROCESSING MACHINE OPERATOR-CONCRETE PUMP OPERATOR HELPER, MAIL PROCESSING MACHINE OPERATOR-HAT AND CAP PARTS CUTTER HAND [address] [id number] PCP - General 01/19/19 Jeana Gaspar DO [address] [facility] [address] [place] [address] PCP - [facility] PCP 09/23/21 Team Status: Inactive Member Role Status Dates Kamryn Gonzalez BMET, BMET-C Primary Care Provider, Referring P rovider Active Dr. Elliott Akhtar DO Attending Provider Active Team Status: Active Member Role Status Dates Kamryn Gonzalez BMET, BMET-C Primary Care Provider, Referring P rovider Active Dr. Elliott Akhtar DO Attending Provider, Other Prov ider Active Team Status: Inactive Member Role Status Dates Kamryn Gonzalez BMET, BMET-C Primary Care Provider Active Dr. Santiago Sellers DO Attending Provider, Referring P rovider Active Dust Box Tender Relationship Specialty Start Date End Date Kamryn Gonzalez E, MAIL PROCESSING MACHINE OPERATOR-CONCRETE PUMP OPERATOR HELPER, MAIL PROCESSING MACHINE OPERATOR-HAT AND CAP PARTS CUTTER HAND [id number] [place] [id number] PCP - General 01/19/19 Jeana Gaspar DO [address] [facility] [address] [place] [address] PCP - [facility] PCP 09/23/21 Dust Box Tender Relationship Specialty Start Date End Date Kamryn Gonzalez, MAIL PROCESSING MACHINE OPERATOR-CONCRETE PUMP OPERATOR HELPER, MAIL PROCESSING MACHINE OPERATOR-HAT AND CAP PARTS CUTTER HAND [id number] [place] [address] PCP - General 01/19/19 Jeana Gaspar DO [address] [facility] [address] [place] [address] PCP - [facility] PCP 09/23/21 Dust Box Tender Relationship Specialty Start Date End Date Kamryn Gonzalez, MAIL PROCESSING MACHINE OPERATOR-CONCRETE PUMP OPERATOR HELPER, MAIL PROCESSING MACHINE OPERATOR-HAT AND CAP PARTS CUTTER HAND [id number] [place] [id number] PCP - General 01/19/19 Jeana Gaspar DO [address] [facility] [address] [place] [address] PCP - [facility] PCP 09/23/21 Team Status: Active Member Role Status Dates Sadie Santiago NP-Damaris Primary Care Provider Active Team Status: Inactive Member Role Status Dates Dr. Quincy Simpson MD Attending Provider Active Start: August 25, 2024 End: August 25, 2024 Dr. Quincy Simpson MD Referring Provider Active Start: August 25, 2024 End: August 25, 2024 Sadie Santiago NP-C Primary Care Provider Active Start: August 25, 2024 End: August 25, 2024 Team Status: Inactive Member Role Status Dates Dr. Quincy Simpson MD Attending Provider Active Start: September 07, 2024 End: September 07, 2024 ERWIN SantillanC Primary Care Provider Active Start: September 07, 2024 End: September 07, 2024 Sadie Santiago NP-C Referring Provider Active Start: September 07, 2024 End: September 07, 2024 Team Status: Inactive Member Role Status Dates ERWIN SantillanC Primary Care Provider Active Start: September 15, [...] St art: October 21, 2024 Sadie Santiago BMET-C Primary Care Provider Active Start: October 21, 2024 Sadie Santiago NP-C Referring Provider Active Start: October 21, 2024 Team Status: Active Member Role Status Dates Kamryn Gonzalez BMET, BMET-C Primary Care Provider Active Start: December 16, 2024 Dr. Santiago Sellers DO Attending Provider Active Start: December 16, 2024 Dr. Santiago Sellers DO Referring Provider Active Start: December 16, 2024 Team Status: Inactive Member Role Status Dates Sadie Santiago NP-C Primary Care Provider Active Start: December 17, 2024 End: December 17, 2024 Dr. Santiago Sellers DO Attending Provider Active Start: December 17, 2024 End: December 17, 2024 Dr. Santiago Sellers DO Referring Provider Active Start: December 17, 2024 End: December 17, 2024 Team Status: Inactive Member Role Status Dates Sadie Santiago BMET-C Primary Care Provider Active Start: December 29, 2024 End: December 29, 2024 Dr. Quincy Simpson MD Attending Provider Active Start: December 29, 2024 End: December 29, 2024 Dr. Quincy Simpson MD Referring Provider Active Start: December 29, 2024 End: December 29, 2024 Team Status: Active Member Role Status Dates Kamryn Gonzalez BMET, BMET-C Primary Care Provider Active Start: December 30, 2024 Dr. Santiago Sellers DO Attending Provider Active Start: December 30, 2024 Dr. Santiago Sellers DO Referring Provider Active Start: December 30, 2024 Team Status: Inactive Member Role Status Dates Sadie Santiago BMET-C Primary Care Provider Active Start: January 05, 2025 End: January 05, 2025 Sadie Santiago NP-C Referring Provider Active Start: January 05, 2025 End: January 05, 2025 Dr. Quincy Simpson MD Attending Provider Active Start: January 05, 2025 End: January 05, 2025 Team Status: Active Member Role Status Dates Kamryn Gonzalez BMET, BMET-C Primary Care Provider Active Start: January 20, 2025 Dr. Santiago Sellers DO Attending Provider Active Start: January 20, 2025 Dr. Santiago Sellers DO Referring Provider Active Start: January 20, 2025 Team Status: Inactive Member Role Status Dates Sadie Santiago BMET-C Primary Care Provider Active Start: February 02, 2025 End: February 02, 2025 Sadie Santiago BMET-C Referring Provider Active Start: February 02, 2025 End: February 02, 2025 Dr. Santiago Sellers DO Attending Provider Active Start: February 02, 2025 End: February 02, 2025 Team Status: Inactive Member Role Status Dates Sadie Santiago BMET-C Primary Care Provider Active Start: February 02, 2025 End: February 20, 2025 Dr. Santiago Sellers DO Attending Provider Active Start: February 02, 2025 End: February 20, 2025 Team Status: Inactive Member Role Status Dates Sadie Santiago BMET-C Primary Care Provider Active Start: February 11, 2025 End: February 11, 2025 Sadie Santiago BMET-C Referring Provider Active Start: February 11, 2025 End: February 11, 2025 Dr. Elliott Akhtar DO Attending Provider Active Start: February 11, 2025 End: February 11, 2025 Team Status: Inactive Member Role Status Dates Sadie Santiago , BMET-C Primary Care Provider Active Start: March 03, 2025 End: March 03, 2025 Dr. James Stephens DO Attending Provider Active Start: March 03, 2025 End: March 03, 2025 Dr. James Stephens DO Referring Provider Active Start: March 03, 2025 End: March 03, 2025 Team Status: Active Member Role Status Dates Sadie Santiago BMET-C Primary Care Provider Active Start: March 03, 2025 Dr. James Stephens DO Referring Provider Active Start: March 03, 2025 Dr. James Stephens DO Other Provider Active Start: March 03, 2025 Dr. Loretta Rausch MD Attending Provider Active S tart: March 03, 2025 Dust Box Tender Relationship Specialty Start Date End Date Kamryn Gonzalez, MAIL PROCESSING MACHINE OPERATOR-CONCRETE PUMP OPERATOR HELPER, MAIL PROCESSING MACHINE OPERATOR-HAT AND CAP PARTS CUTTER HAND [id number] [place] [id number] PCP - General 01/19/19 Team Status: Active Member Role/Relationship Status Dates Sadie Santiago , BMET-C Primary Care Provider Active Team Status: Inactive Member Role/Relationship Status Dates Sadie Santiago BMET-C Primary Care Provider Active Start: December 17, 2024 End: December 17, 2024 Dr. Santiago Sellers DO Attending Provider Active Start: December 17, 2024 End: December 17, 2024 Dr. Santiago Sellers DO Referring Provider Active Start: December 17, 2024 End: December 17, 2024 Team Status: Inactive Member Role/Relationship Status Dates Sadie Santiago BMET-C Primary Care Provider Active Start: December 29, 2024 End: December 29, 2024 Dr. Quincy Simpson MD Attending Provider Active Start: December 29, 2024 End: December 29, 2024 Dr. Quincy Simpson MD Referring Provider Active Start: December 29, 2024 End: December 29, 2024 Team Status: Inactive Member Role/Relationship Status Dates Sadie Santiago BMET-C Primary Care Provider Active Start: January 05, 2025 End: January 05, 2025 Sadie Santiago BMET-C Referring Provider Active Start: January 05, 2025 End: January 05, 2025 Dr. Quincy Simpson MD Attending Provider Active Start: January 05, 2025 End: January 05, 2025 Team Status: Inactive Member Role/Relationship Status Dates Sadie Santiago BMET-C Primary Care Provider Active Start: February 02, 2025 End: February 02, 2025 Sadie Santiago BMET-C Referring Provider Active Start: February 02, 2025 End: February 02, 2025 Dr. Santiago Sellers DO Attending Provider Active Start: February 02, 2025 End: February 02, 2025 Team Status: Inactive Member Role/Relationship Status Dates Sadie Santiago BMET-C Primary Care Provider Active Start: February 02, 2025 End: February 20, 2025 Dr. Santiago Sellers DO Attending Provider Active Start: February 02, 2025 End: February 20, 2025 Team Status: Inactive Member Role/Relationship Status Dates Sadie Santiago , BMET-C Primary Care Provider Active Start: February 11, 2025 End: February 11, 2025 Sadie Santiago BMET-C Referring Provider Active Start: February 11, 2025 End: February 11, 2025 Dr. Elliott Akhtar , Attending Provider Active Start: February 11, 2025 End: February 11, 2025 Team Status: Inactive Member Role/Relationship Status Dates Sadie Santiago , BMET-C Primary Care Provider Active Start: March 03, 2025 End: March 03, 2025 Dr. James Stephens DO Attending Provider Active Start: March 03, 2025 End: March 03, 2025 Dr. James Stephens DO Referring Provider Active Start: March 03, 2025 End: March 03, 2025 Team Status: Active Member Role/Relationship Status Dates Sadie Santiago , BMET-C Primary Care Provider Active Start: March 03, 2025 Dr. James Stephens DO Referring Provider Active Start: March 03, 2025 Dr. James Stephens DO Other Provider Active Start: March 03, 2025 Dr. Loretta Rausch MD Attending Provider Active S tart: March 03, 2025 Team Status: Active Member Role/Relationship Status Dates Kamryn Gonzalez AJAY, BMET-C Primary Care Provider Active Start: March 25, 2025 Dr. Santiago Sellers DO Attending Provider Active Start: March 25, 2025 Dr. Santiago Sellers DO Referring Provider Active Start: March 25, 2025 Team Status: Inactive Member Role/Relationship Status Dates Sadie Santiago BMET-C Primary Care Provider Active Start: March 31, 2025 End: March 31, 2025 Dr. James Stephens DO Attending Provider Active Start: March 31, 2025 End: March 31, 2025 Dr. James Stephens DO Referring Provider Active Start: March 31, 2025 End: March 31, 2025 Team Status: Active Member Role/Relationship Status Dates Sadie Santiago , BMET-C Primary Care Provider Active Start: March 31, 2025 Dr. James Stephens DO Referring Provider Active Start: March 31, 2025 Dr. James Stephens DO Other Provider Active Start: March 31, 2025 Dr. Loretta Rausch MD Attending Provider Active S tart: March 31, 2025 Team Status: Inactive Member Role/Relationship Status Dates Sadie Santiago NP-C Primary Care Provider Active Start: April 15, 2025 End: April 15, 2025 Sadie Santiago NP-C Referring Provider Active Start: April 15, 2025 End: April 15, 2025 Dr. Elliott Akhtar DO Attending Provider Active Start: April 15, 2025 End: April 15, 2025 Team Status: Active Member Role/Relationship Status Dates Sadie Santiago NP-C Primary Care Provider Active Start: April 15, 2025 ERWIN SantillanC Referring Provider Active Start: April 15, 2025 Dr. Elliott Akhtar DO Attending Provider Active Start: April 15, 2025 Dr. Elliott Akhtar DO Other Provider Active St art: April 15, 2025 Dust Box Tender Relationship Specialty Start Date End Date Kamryn Gonzalez, MAIL PROCESSING MACHINE OPERATOR-CONCRETE PUMP OPERATOR HELPER, MAIL PROCESSING MACHINE OPERATOR-HAT AND CAP PARTS CUTTER HAND [id number] [place] [id number] PCP - General 01/19/19 Team Status: Active Member Role/Relationship Status Dates Sadie Santiago NP-C Primary care physician Active Team Status: Inactive [...] NP-C Primary care physician Active Start: March 03, 2025 Dr. James Stephens DO Referring Provider Active Start: March 03, 2025 Dr. James Stephens DO Nurse Practitioner Active Start: March 03, 2025 Dr. Loretta Rausch MD Attending physician Active Start: March 03, 2025 Team Status: Inactive Member Role/Relationship Status Dates Sadie Santiago BMET-C Primary care physician Active Start: March 31, 2025 End: March 31, 2025 Dr. James Stephens DO Attending physician Active Start: March 31, 2025 End: March 31, 2025 Dr. James Stephens DO Referring Provider Active Start: March 31, 2025 End: March 31, 2025 Team Status: Active Member Role/Relationship Status Dates Sadie Santiago BMET-C Primary care physician Active Start: March 31, 2025 Dr. James Stephens DO Referring Provider Active Start: March 31, 2025 Dr. James Stephens DO Nurse Practitioner Active Start: March 31, 2025 Dr. Loretta Rausch MD Attending physician Active Start: March 31, 2025 Team Status: Inactive Member Role/Relationship Status Dates Sadie Santiago BMET-C Primary care physician Active Start: April 15, 2025 End: April 15, 2025 Sadie Santiago BMET-C Referring Provider Active Start: April 15, 2025 End: April 15, 2025 Dr. Elliott Akhtar DO Attending physician Active Start: April 15, 2025 End: April 15, 2025 Team Status: Active Member Role/Relationship Status Dates Sadie Santiago BMET-C Primary care physician Active Start: April 15, 2025 Sadie Santiago BMET-C Referring Provider Active Start: April 15, 2025 Dr. Elliott Akhtar DO Attending physician Active Start: April 15, 2025 Dr. Elliott Akhtar DO Nurse Practitioner Active Start: April 15, 2025 Team Status: Inactive Member Role/Relationship Status Dates Kamryn Gonzalez NP, BMET-C Primary care physician Active Start: May 14, 2025 End: May 14, 2025 Dr. Santiago Sellers DO Attending physician Active Start: May 14, 2025 End: May 14, 2025 Dr. Santiago Sellers DO Referring Provider Active Start: May 14, 2025 End: May 14, 2025 Dust Box Tender Relationship Specialty Start Date End Date Kamryn Gonzalez, MAIL PROCESSING MACHINE OPERATOR-CONCRETE PUMP OPERATOR HELPER, MAIL PROCESSING MACHINE OPERATOR-HAT AND CAP PARTS CUTTER HAND [id number] [place] [address] PCP - General 01/19/19 Dust Box Tender Relationship Specialty Start Date End Date Kamryn Gonzalez, MAIL PROCESSING MACHINE OPERATOR-CONCRETE PUMP OPERATOR HELPER, MAIL PROCESSING MACHINE OPERATOR-HAT AND CAP [employer]S CUTTER HAND [id number] [place] [address] PCP - General 01/19/19 Reason for [...] BE BASED ON THE PRIMARY CLINICAL RECORDS. [facility]. provides no warranty or guarantee of the accuracy or completeness of information in this document.
--- NOTE | 2025-07-10 10:18 | EX.ED.DYSGE1 ---
HPI History of Present Illness Chief Complaint: Other, Pain/Inj Informant: patient Narrative Narrative: Patient is a 65-year-old male presenting with a broken tracheostomy clip. - Reports waking up this morning to find one of the clips on his tracheostomy broken. - Tracheostomy was functioning properly yesterday. - Denies any bleeding. - Tracheostomy size is 6.0. 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 Hypertension Mass of left side of neck Difficulty swallowing Home Medications ?Medication ?Instructions ?Recorded ?Last Taken ?Type albuterol sulfate 1.25 mg/3 mL 1.25 mg (3 mL) inhalation Q4H PRN 12/10/21 Unknown Rx solution for nebulization bronchospasm #90 mL amlodipine 5 mg tablet 5 mg PO DAILY bp 01/23/22 04/14/25 History sodium chloride 1,000 mg soluble 3 g PO BID #60 tabs 01/25/22 04/14/25 Rx tablet nystatin 100,000 unit/mL oral 1 ml PO Q6H PRN mouth irritation 02/14/22 Unknown History suspension oxycodone 5 mg tablet 5 mg PO BID PRN pain 05/23/22 04/15/25 History Levothyroxine 100 mcg PO DAILY thyroid 01/31/23 04/15/25 History folic acid 400 mcg tablet 0.4 mg PO DAILY 09/15/24 04/14/25 History cholecalciferol (vitamin D3) 50 50 mcg PO DAILY 04/12/25 04/14/25 History mcg (2,000 unit) capsule (Vitamin D3) mecobalamin (vitamin B12) 1,000 1,000 mcg PO DAILY 04/12/25 04/14/25 History mcg chewable tablet pentoxifylline 400 mg 400 mg PO TID 04/12/25 04/14/25 History tablet,extended release pilocarpine HCl 5 mg tablet 5 mg PO TID 04/12/25 04/14/25 History Allergy/AdvReac Type Severity Reaction Status Date / Time No Known Allergies Allergy Verified 07/10/25 09:29 Family History Mother CVA (cerebral vascular accident) Surgical History History of esophagogastroduodenoscopy (EGD) History of mandibular surgery Hx of tonsillectomy History of removal of Port-a-Cath s/p port placement (~01/26/19) S/P percutaneous endoscopic gastrostomy (PEG) tube placement (~01/26/19) history of biopsy neck Social History Smoking Status: Former smoker quit date: 09/16/21 Tobacco: How many years used: 30 how long ago did patient quit smokin-4 months ago second hand exposure: Yes alcohol intake: former details: August 2021 substance use type: does not use diet: other well-balanced diet: other details: on a soft food diet, hasn't used feeding tube since early October 2022 seatbelt use: sometimes do you feel safe at home: Yes ROS ROS ED Constitutional Constitutional ED: Denies chills or fever(s) Eyes Eyes: Denies change in vision or diplopia ENT ENT ED: Denies rhinorrhea or sore throat Cardiovascular Cardiovascular: Denies chest pain or palpitations Respiratory/Chest Respiratory/Chest: Denies cough or dyspnea Gastrointestinal Gastrointestinal: Denies abdominal pain, diarrhea, nausea or vomiting Musculoskeletal Musculoskeletal: Denies back pain or neck pain Integumentary Denies abscess or rash Neurologic Neurologic: Denies headache(s), paresthesias or weakness EXAM Physical Exam Const Vital Signs: 07/10/25 09:26 07/10/25 09:43 Temperature 97.6 F L Temperature Source Oral Pulse Rate 94 Respiratory Rate 18 Respiratory Effort Normal Non-Labored Blood Pressure 144/72 H Blood Pressure Mean 96 Pulse Ox 98 Oxygen Delivery Method Room Air Positive well nourished and well developed General Appearance ED: well developed and NAD HEENT Reports moist mucous membranes normocephalic and atraumatic Eyes PERRL and EOMs intact bilaterally Neck full ROM and supple Neck Narrative: Trach site benign. Patient is able to pull his tracheostomy all the way out since the strap is not attached, due to broken clip on the tracheostomy. Patient is able to put his tracheostomy back into the site without any difficulty. No stridor. MDM MDM MDM Narrative Medical decision making narrative: I asked the respiratory team to evaluate the patient?s tracheostomy to see if it could be replaced, but we did not have the specific type of tracheostomy tube he requires. They attempted a different type, but it did not fit. Instead, they performed a temporary repair using the patient?s tracheostomy strap, and he is comfortable with that arrangement. There are no issues with the current tracheostomy?s functioning or fit. He is advised to follow up with his ENT in [place] as an outpatient. Management Discussion w/another healthcare provider: Drafting Layout Worker (respiratory therapy) Discharge Plan Triage Chief Complaint: Other, Pain/Inj ED Provider: Jamari Spence Dx/Rx/DC Orders Clinical Impression: Tracheostomy mechanical complication Instructions: Tracheostomy Care Prescriptions: No Action nystatin 100,000 unit/mL suspension 1 ml PO Q6H PRN (Reason: mouth irritation) Rx Instructions: swish and spit - per Dr. Brooks's office oxycodone 5 mg tablet 5 mg PO BID PRN (Reason: pain) Levothyroxine 100 mcg PO DAILY Rx Instructions: PATIENT DOESN'T KNOW THE STRENGTH. albuterol sulfate 1.25 mg/3 mL solution for nebulization 1.25 mg inhalation Q4H PRN (Reason: bronchospasm) Qty: 90 0RF amlodipine 5 mg Tablet 5 mg PO DAILY sodium chloride 1,000 mg Tablet,Soluble 3 g PO BID Qty: 60 2RF folic acid 400 mcg tablet 0.4 mg PO DAILY pilocarpine HCl 5 mg tablet 5 mg PO TID pentoxifylline 400 mg tablet extended release 400 mg PO TID cholecalciferol (vitamin D3) [Vitamin D3] 50 mcg (2,000 unit) capsule 50 mcg PO DAILY mecobalamin (vitamin B12) 1,000 mcg tablet,chewable 1,000 mcg PO DAILY Primary Care Provider: Sadie Santiago Referrals: Sadie Santiago, NUTRITION AND DIETETICS INSTRUCTOR-C [Primary Care Provider, Internal Medicine] Print Language: Slovak Disposition Disposition: Home, Self Care
[2025-07-10 11:42] VITALS: BP 144/72; PULSE 94; RESP 16; TEMP 36.4; O2SAT 97
== END 2025-07-10 11:43 | disposition home or self-care (01) ==
PROVIDERS: Emergency Provider Emergency Medicine; PCP Nurse Practitioner Family; Visit Provider Emergency Medicine
DX: J95.03 Malfunction of tracheostomy stoma (principal); Z87.891 Personal history of nicotine dependence; I10 Essential (primary) hypertension; Z85.89 Personal history of malignant neoplasm of other organs and systems; Z79.899 Other long term (current) drug therapy
CPT/HCPCS: 31720; 99282

== ENCOUNTER 2025-08-05 10:51 | Outpatient (RCR) | payer MEDICARE, SELFPAY ==
[2022-01-31 09:09] VITALS: BMI 22.6
== END 2025-08-22 23:59 ==
LOC: NS 10:51
PROVIDERS: PCP Nurse Practitioner Family; Visit Provider Student in an Organized Health Care Education/Training Program
DX: Z71.3 Dietary counseling and surveillance (principal)
CPT/HCPCS: 97803

== ENCOUNTER → 2025-08-26 | Outpatient (CLI) | payer MEDICARE, SELFPAY ==
[2022-01-31 09:09] VITALS: BMI 22.6
--- NOTE | 2025-08-26 08:03 | CT_ITS ---
PROCEDURE: CHEST WITHOUT CONTRAST 08/26/2025 REASON FOR EXAM: H/O H N SCC, LUNG NODULE RIGHT LUNG TECHNIQUE: Chest CT without contrast. Coronal and Sagittal reconstruction series were provided. One or more dose reduction techniques were used (e.g., Automated exposure control, adjustment of the mA and/or kV according to patient size, use of iterative reconstruction technique RADIATION DOSE SUMMARY: CTDlvol: 10.31 mGy DLP: 366 mGycm COMPARISON: 06/28/2025. FINDINGS: Midline tracheostomy tube is in good position. Unchanged pulmonary emphysema. Unchanged nodules of the right upper lobe with the largest measuring 2 mm. Unchanged 11 mm nodule in the medial aspect of the right lower lobe. Unchanged bleb in the lingula. Unchanged moderate coronary artery calcifications. Normal unenhanced main pulmonary artery and right and left pulmonary arteries. Normal bilateral peripheral pulmonary arteries. Mild calcified atheromatous plaques of the thoracic aorta and visualized great vessels. There is no demonstrated aortic aneurysm. Normal heart and pericardium. Normal mediastinum. Normal hilar regions. Normal visualized trachea and bronchi. Normal pleura. Diffuse spondylosis. Normal visualized upper abdomen. CT/Chest without Contrast IMPRESSION: IMPRESSION: Midline tracheostomy tube is in good position. Unchanged pulmonary emphysema. Unchanged nodules of the right upper lobe with the largest measuring 2 mm. Unchanged 11 mm nodule in the medial aspect of the right lower lobe. Unchanged bleb in the lingula. Unchanged moderate coronary artery calcifications. No significant change is noted since the prior exam. Continue low-dose CT scan of the chest in 12 months is recommended Reading Location: [facility]
[2025-08-26 08:06] LABS: Hematocrit 43.6 % (40-54); Hemoglobin 14.6 g/dL (13.0-16.5); Immature Granulocytes Count 0.040 X10^3/uL (0.0-0.0); Mean Corp Hgb Conc 33.5 g/dL (32-36); Mean Corpuscular Volume 92.2 fL (80-94); Mean Platelet Vol. 8.9 fl (6.2-12.0); NRBC Flagged by Analyzer 0 % (0-5); Platelet Count 289 K/mm3 (150-450); RBC Distribution Width CV 12.9 % (11.6-14.6); RBC Distribution Width SD 44.1 fl (35.1-43.9); Red Blood Count 4.73 M/mm3 (4.6-6.2); White Blood Count 7.3 K/mm3 (4.4-11.0)
[2025-08-26 08:14] LABS: Prothrombin Time (Protime)PT. 12.8 SECONDS (11.7-14.9)
[2025-08-26 08:15] LABS: Partial Thromboplast Time 28.9 Seconds (24.1-36.2)
[2025-08-26 08:18] VITALS: BP 153/71; PULSE 80; RESP 18; TEMP 36.6; O2SAT 98; BMI 19.3
[2025-08-26] MEDS: 0.9% Normal Saline (250mL Bag) 250 ML 15 ML IV (09:22)
--- NOTE | 2025-08-26 09:49 | NURSING ---
AFTER REVIEWING [facility] IMAGE WITH DR. JOHNSON IT WAS DETERMINED THERE IS NO SAFE WAY TO GET TO NODULE. PROCEDURE WAS CANCELED. PATIENT AWARE AND VERBALIZED UNDERSTANDING. WILL NOTIFY DR. HAYWARD'S OFFICE.
== END | disposition home or self-care (01) ==
PROVIDERS: Radiology Diagnostic Radiology; PCP Nurse Practitioner Family; Referring Provider Student in an Organized Health Care Education/Training Program; Visit Provider Student in an Organized Health Care Education/Training Program
DX: Z01.818 Encounter for other preprocedural examination (principal); J43.9 Emphysema, unspecified; R91.8 Other nonspecific abnormal finding of lung field; I25.10 Atherosclerotic heart disease of native coronary artery without angina pectoris
CPT/HCPCS: 36415; 71250; 85025; 85610; 85730